=== PATIENT | female | born 1975 | race Caucasian/White ===

== ENCOUNTER 2019-06-22 14:41 | Outpatient (REF) | payer MEDICAID, SELFPAY ==
[2019-06-22 21:35] LABS: ALT 56 U/L (14-59); AST 47 U/L (15-37); Albumin 4.4 g/dL (3.4-5.0); Alkaline Phosphatase 112 U/L (46-116); Anion Gap 16.1 mmol/L (3-11); BUN 16 mg/dL (7-18); Bilirubin, Total 0.6 mg/dL (0.2-1.0); CO2 21.9 mmol/L (21.0-32.0); CREATININE 1.38 mg/dL (0.55-1.02); Calcium 10.4 mg/dL (8.5-10.1); Chloride 98 mmol/L (98-107); Cholesterol 265 mg/dL (<200); Estimated GFR 42.13 (mL/min/1.73m2); Glucose 380 mg/dL (74-106); HDL Cholesterol 36 mg/dL (40-60); Potassium 4.2 mmol/L (3.5-5.1); Sodium 136 mmol/L (136-145); Total Protein 7.7 g/dL (6.4-8.2); Triglyceride 882 mg/dL (<150)
[2019-06-24 11:52] LABS: Hepatitis C Ab w Rflx HCV PCR Negative (Negative)
== END 2019-06-22 15:01 ==
LOC: NCHCN 14:41
PROVIDERS: PCP Nurse Practitioner Family; Visit Provider Nurse Practitioner Family
DX: E78.5 Hyperlipidemia, unspecified (principal); E88.81 Metabolic syndrome and other insulin resistance; Z11.59 Encounter for screening for other viral diseases
CPT/HCPCS: 80053; 80061; 83721; 86803

== ENCOUNTER 2019-07-06 16:14 | Outpatient (REF) | payer MEDICAID, SELFPAY ==
[2019-07-06 20:56] LABS: ALT 79 U/L (14-59); AST 52 U/L (15-37); Albumin 4.7 g/dL (3.4-5.0); Alkaline Phosphatase 116 U/L (46-116); Anion Gap 15.6 mmol/L (3-11); BUN 11 mg/dL (7-18); Bilirubin, Total 0.6 mg/dL (0.2-1.0); CO2 22.4 mmol/L (21.0-32.0); CREATININE 0.91 mg/dL (0.55-1.02); Calcium 10.8 mg/dL (8.5-10.1); Chloride 99 mmol/L (98-107); Glucose 231 mg/dL (74-106); Potassium 4.3 mmol/L (3.5-5.1); Sodium 137 mmol/L (136-145); Total Protein 8.2 g/dL (6.4-8.2)
[2019-07-06 21:48] LABS: COMMENT (LAB VIEW ONLY) 28.14 mg/dL
== END 2019-07-06 16:34 ==
LOC: NCHCN 16:14
PROVIDERS: PCP Nurse Practitioner Family; Visit Provider Nurse Practitioner Family
DX: E88.81 Metabolic syndrome and other insulin resistance (principal); I10 Essential (primary) hypertension; E78.5 Hyperlipidemia, unspecified
CPT/HCPCS: 80053; 82043; 82570

== ENCOUNTER 2019-08-18 14:32 | Outpatient (REF) | payer MEDICAID, SELFPAY ==
[2019-08-18 20:58] LABS: Anion Gap 12.3 mmol/L (3-11); BUN 8 mg/dL (7-18); CO2 24.7 mmol/L (21.0-32.0); CREATININE 1.11 mg/dL (0.55-1.02); Calcium 10.1 mg/dL (8.5-10.1); Chloride 96 mmol/L (98-107); Potassium 4.4 mmol/L (3.5-5.1); Sodium 133 mmol/L (136-145)
[2019-08-18 21:22] LABS: Glucose 543 mg/dL (74-106)
== END 2019-08-18 14:52 ==
LOC: NCHCN 14:32
PROVIDERS: PCP Nurse Practitioner Family; Visit Provider Nurse Practitioner Family
DX: I10 Essential (primary) hypertension (principal)
CPT/HCPCS: 80048

== ENCOUNTER 2020-01-19 17:16 | Outpatient (REF) | payer MEDICAID, SELFPAY ==
[2020-01-22 03:08] LABS: SARS-CoV-2 RNA Undetected (Undetected); SARS-CoV-2 Specimen Source Nasal
== END 2020-01-19 17:36 ==
LOC: NCHCN 17:16
PROVIDERS: PCP Nurse Practitioner Family; Visit Provider Nurse Practitioner Family
DX: Z11.59 Encounter for screening for other viral diseases (principal)
CPT/HCPCS: U0003

== ENCOUNTER 2020-12-26 21:07 | Outpatient (REF) | payer MEDICAID, SELFPAY ==
[2020-12-26 21:01] LABS: Cholesterol 263 mg/dL (<200); HDL Cholesterol 37 mg/dL (40-60); Triglyceride 618 mg/dL (<150)
[2020-12-26 21:07] LABS: Hemoglobin A1C 10.4 % (<5.7)
[2020-12-26 21:13] LABS: LDL CHOLESTEROL 159 mg/dL (<100)
== END 2020-12-26 21:08 | disposition home or self-care (01) ==
LOC: NCHCN 21:07
PROVIDERS: PCP Nurse Practitioner Family; Visit Provider Nurse Practitioner Family
DX: E11.9 Type 2 diabetes mellitus without complications (principal); E78.5 Hyperlipidemia, unspecified; E88.81 Metabolic syndrome and other insulin resistance
CPT/HCPCS: 80061; 83721; 83036

== ENCOUNTER 2021-01-16 16:45 | Outpatient (REF) | payer MEDICAID, SELFPAY ==
[2021-01-16 21:11] LABS: Microalb ug/mg Crea 2.4 ug/mg Cr
== END 2021-01-16 16:46 | disposition home or self-care (01) ==
LOC: NCHCN 16:45
PROVIDERS: PCP Nurse Practitioner Family; Visit Provider Nurse Practitioner Family
DX: E11.9 Type 2 diabetes mellitus without complications (principal)
CPT/HCPCS: 82043; 82570

== ENCOUNTER 2022-02-12 11:26 | Outpatient (REF) | payer MEDICAID, SELFPAY ==
[2022-02-12 16:51] LABS: COMMENT (LAB VIEW ONLY) 5.52 mg/dL
== END 2022-02-12 11:27 | disposition home or self-care (01) ==
LOC: NCHCN 11:26
PROVIDERS: PCP Nurse Practitioner Family; Visit Provider Nurse Practitioner Family
DX: E11.9 Type 2 diabetes mellitus without complications (principal)
CPT/HCPCS: 82043; 82570

== ENCOUNTER 2022-10-18 16:30 | Outpatient (REF) | payer MEDICARE, MEDICAID, SELFPAY ==
--- NOTE | 2022-10-18 14:30 | PAPFT_PTH ---
PATIENT: Guzman Jean LOC: [facility]#:[id number] AGE/SX: 47/F ROOM: RE10/18/[address]: Stephanie Santos : 1975 BED: DIS: 10/18/2022 SPEC #: [id number] RECD: 10/19/22 12:57 STATUS: RADHA REQ #: [id number] BINH: 10/18/22 14:[address]: Stephanie Santos DEPT: [facility] Cytology RECD BY: Rose Lopez ENTERED: 10/19/22 12:58 SP TYPE: PAPFT OTHR DR: Jossie Patton Tissues: 1 - CX/ENDOCX FOR PAP SMEARS Procedures: PAP THIN PREP/UVM Screening HPV DNA PROBE Comments: [id number] (CHLAMYDIA/GC)
[2022-10-20 13:14] LABS: Chlamydia Result Negative (Negative); GC Result Negative (Negative)
[2022-10-22 14:29] LABS: Chlamydia Result Negative (Negative); GC Result Negative (Negative)
== END 2022-10-18 16:31 | disposition home or self-care (01) ==
LOC: NCHCN 16:30
PROVIDERS: PCP Nurse Practitioner Family; Visit Provider Family Medicine
DX: Z11.3 Encounter for screening for infections with a predominantly sexual mode of transmission (principal); Z12.72 Encounter for screening for malignant neoplasm of vagina; Z11.51 Encounter for screening for human papillomavirus (HPV); Z01.419 Encounter for gynecological examination (general) (routine) without abnormal findings
CPT/HCPCS: 87491; 87591; 88142; 87624

== ENCOUNTER 2022-10-29 16:59 | Outpatient (REF) | payer MEDICARE, MEDICAID, SELFPAY ==
[2022-10-29 22:21] LABS: ALT 52 U/L (14-59); AST 36 U/L (15-37); Albumin 4.3 g/dL (3.4-5.0); Alkaline Phosphatase 101 U/L (46-116); Anion Gap 13.7 mmol/L (3-11); BUN 12 mg/dL (7-18); Bilirubin, Total 1.4 mg/dL (0.2-1.0); CO2 22.3 mmol/L (21.0-32.0); CREATININE 1.2 mg/dL (0.55-1.02); Calcium 9.4 mg/dL (8.5-10.1); Chloride 97 mmol/L (98-107); Estimated GFR 56.89 (mL/min/1.73m2); Glucose 336 mg/dL (74-106); Potassium 4.1 mmol/L (3.5-5.1); Sodium 133 mmol/L (136-145)
== END 2022-10-29 17:00 | disposition home or self-care (01) ==
LOC: NCHCN 16:59
PROVIDERS: PCP Nurse Practitioner Family; Visit Provider Internal Medicine
DX: E11.9 Type 2 diabetes mellitus without complications (principal); R11.2 Nausea with vomiting, unspecified
CPT/HCPCS: 80053

== ENCOUNTER 2023-03-08 15:49 | Outpatient (REF) | payer MEDICARE, SELFPAY ==
[2023-03-08 21:47] LABS: COMMENT (LAB VIEW ONLY) 55.52 mg/dL
[2023-03-08 21:52] LABS: Microalb ug/mg Crea 601.8 ug/mg Cr
[2023-03-11 10:57] LABS: HIV-1/2 Ag & Ab Screen Negative (Negative)
[2023-03-11 12:16] LABS: Syphilis Serology (RPR) Negative (Negative)
[2023-03-11 13:17] LABS: Chlamydia Result Negative (Negative); GC Result Negative (Negative)
== END 2023-03-08 15:50 | disposition home or self-care (01) ==
LOC: NCHCN 15:49
PROVIDERS: PCP Nurse Practitioner Family; Visit Provider Family Medicine
DX: R39.9 Unspecified symptoms and signs involving the genitourinary system (principal); E11.65 Type 2 diabetes mellitus with hyperglycemia; B96.20 Unspecified Escherichia coli [E. coli] as the cause of diseases classified elsewhere; Z11.3 Encounter for screening for infections with a predominantly sexual mode of transmission; Z72.51 High risk heterosexual behavior
CPT/HCPCS: 87077; 87389; 87491; 87591; 82043; 82570; 86592; 87086; 87186; 87480; 87510; 87660

== ENCOUNTER 2023-08-23 15:05 | Outpatient (REF) | payer MEDICARE, SELFPAY ==
[2023-08-27 08:49] LABS: Misc Referral (UVM) See Comments
== END 2023-08-23 15:06 | disposition home or self-care (01) ==
LOC: NCHCN 15:05
PROVIDERS: PCP Nurse Practitioner Family; Visit Provider Registered Nurse
DX: R39.9 Unspecified symptoms and signs involving the genitourinary system (principal); B37.9 Candidiasis, unspecified
CPT/HCPCS: 87077; 87086; 87186; 87480; 87510; 87660

== ENCOUNTER 2024-02-14 15:04 | Outpatient (REF) | payer MEDICARE, SELFPAY ==
--- OUTSIDE RECORDS SUMMARY | 2024-02-14 15:07 | XMS_ITS ---
Author Organization Unknown Address [address] [place] [phone] Phone Care Team Providers Care Test Clerk Name Role Phone HENOK MARIE Crawford Attending Unavailable JES DELAROSA Primary Unavailable Results HEMOGLOBIN A1C* - Collect Da te/Time: 06/27/2021 16:40 [facility] ID: [id number] [address] [place] [address], [address] LOINC: 05209-0 Test Value Unit Reference Range Code Code System Flag Hgb A1c 11.2 % L=3.8 H=5.7 4548-4 LOINC H MEAN BLOOD GLUCOSE 287 mg/dL 98772-6 LOINC COMPREHENSIVE METABOLIC PANE L (CMP) - Collect Date/Time: 06/27/2021 16:16 [facility] ID: [id number] [address] [place] [address], [address] LOINC: 42686-4 Test Value Unit Reference Range Code Code System Flag GLUCOSE 328 mg/dL L=70 H=116 2345-7 LOINC H BUN 3 mg/dL L=6 H=25 3094-0 LOINC L CREATININE 0.87 mg/dL L=0.51 H=0.95 2160-0 LOINC SODIUM SERUM 135 mmol/L L=136 H=145 2951-2 LOINC L POTASSIUM SERUM 3.4 mmol/L L=3.4 H=5.2 2823-3 LOINC CHLORIDE SERUM 97 mmol/L L=96 H=110 2075-0 LOINC CARBON DIOXIDE (CO2) 23 mmol/L L=22 H=34 2028-9 LOINC ANION GAP 15.5 mmol/L 23570-1 LOINC CALCIUM SERUM 9.9 mg/dL L=8.2 H=10.2 76738-7 LOINC BILIRUBIN TOTAL 0.9 mg/dL L=0.0 H=1.3 1975-2 LOINC ALK. PHOS. 100 U/L L=46 H=116 6768-6 LOINC SGOT (AST) 30 U/L L=15 H=37 1920-8 LOINC SGPT (ALT) 54 U/L L=12 H=78 1742-6 LOINC TOTAL PROTEIN 8.0 gm/dL L=6.0 H=8.0 2885-2 LOINC ALBUMIN 4.3 gm/dL L=3.4 H=5.0 1751-7 LOINC AGE 45 years eGFR (non-Afr.Amer.) 71 mL/min 66785-2 LOINC eGFR (Afr-Irish) 86 mL/min 06050-2 LOINC CBC W/ DIFFERENTIAL* - Colle ct Date/Time: 06/27/2021 16:16 [facility] ID: [id number] [address] [place], [place], [address] LOINC: 58783-6 Test Value Unit Reference Range Code Code System Flag WBC 11.97 th/cmm L=5.00 H=10.00 6690-2 LOINC H NEUT % 44.6 % L=40.0 H=80.0 LYMPH % 46.4 % L=10.0 H=50.0 MONO % 7.1 % L=2.0 H=12.0 19608-0 LOINC EOS % 1.1 % L=0.0 H=8.0 BASO % 0.5 % L=0.0 H=3.0 IG % 0.3 % L=0.0 H=1.1 2514-8 LOINC NRBC % 0.0 % L=0.0 H=0.0 31021-0 LOINC NEUT abs count 5.3 th/cmm L=1.6 H=8.4 751-8 LOINC LYMPH abs count 5.6 th/cmm L=1.5 H=4.0 731-0 LOINC H MONO abs count 0.9 th/cmm L=0.2 H=1.0 742-7 LOINC EOS abs count 0.1 th/cmm L=0.0 H=0.5 711-2 LOINC BASO abs count 0.1 th/cmm L=0.0 H=0.2 704-7 LOINC IG abs count 0.0 th/cmm L=0.0 H=0.1 97443-9 LOINC NRBC abs count 0.0 mil/cmm L=0.0 H=0.0 97896-6 LOINC RBC 4.86 mil/cmm L=3.90 H=5.40 789-8 LOINC HEMOGLOBIN 15.7 gm/dL L=12.0 H=16.0 718-7 LOINC HEMATOCRIT 43 % L=37 H=47 4544-3 LOINC MCV 88 fL L=82 H=92 787-2 LOINC MCH 32.3 pg L=27.0 H=31.0 785-6 LOINC H MCHC 36.8 % L=32.0 H=36.0 786-4 LOINC H RDW-SD 37.2 fL L=39.0 H=49.0 788-0 LOINC L PLATELET COUNT 288 th/cmm L=150 H=450 777-3 LOINC Atyp lymphs 2+ Social History Type Status Start Date End Date Code Code Syst em Smoking History Current every day smoker 670242701 SNOMED CT Sex Female Medications Medication Start Date End Date Route Frequency Dose Code Code System Medication Instructions Home Meds ACTOS TABLET 10/24/2018 07/01/2021 ORAL DAILY 1 TABLET R xNorm TAKE 1 TABLET ORAL DAILY Labetalol HCl 200MG Oral Tablet 10/24/2018 07/01/2021 ORAL DAILY 200 MILLIGRAMS 01159 2 RxNorm TAKE 200 MILLIGRAMS ORAL DAILY NEURONTIN 600MG ORAL TABLET 10/24/2018 07/01/2021 ORAL TWICE A DAY 600 MILLIGRAMS RxNorm TAKE 600 MILLIGRAMS ORAL TWICE A DAY SEROQUEL 300MG ORAL TABLET 10/24/2018 07/01/2021 ORAL DAILY 300 MILLIGRAMS RxNorm TAKE 300 MILLIGRAMS ORAL DAILY metFORMIN HCl 1000MG Oral Tablet, Extended Release 10/24/2018 07/01/2021 ORAL TWICE A DAY 35462 94 RxNorm TAKE 000 MILLIGRAMS ORAL TWICE A DAY Cyclobenzapr ine 10MG Oral Tablet 12/14/2018 10/26/2021 ORAL THREE TIMES A DAY 10 MILLIGRAMS 05185 8 RxNorm TAKE 10 MILLIGRAMS ORAL THREE TIMES A DAY JANUVIA 100MG ORAL TABLET 12/14/2018 07/01/2021 ORAL DAILY 100 MILLIGRAMS RxNorm TAKE 100 MILLIGRAMS ORAL DAILY LAMICTAL 200MG ORAL TABLET 12/14/2018 07/01/2021 ORAL DAILY 200 MILLIGRAMS RxNorm TAKE 200 MILLIGRAMS ORAL DAILY Lisinopril 20MG Oral Tablet 12/14/2018 07/01/2021 ORAL DAILY 20 MILLIGRAMS 77788 7 RxNorm TAKE 20 MILLIGRAMS ORAL DAILY NEURONTIN 600MG ORAL TABLET 12/14/2018 07/01/2021 ORAL TWICE A DAY 600 MILLIGRAMS RxNorm TAKE 600 MILLIGRAMS ORAL TWICE A DAY SEROQUEL 300MG ORAL TABLET 12/14/2018 07/01/2021 ORAL DAILY 300 MILLIGRAMS RxNorm TAKE 300 MILLIGRAMS ORAL DAILY VICTOZA 6MG/1ML SUBCUTANEOUS SOLUTI 12/14/2018 07/01/2021 ORAL DAILY 0.6 UNIT RxNorm TAKE 0.6 UNIT ORAL DAILY metFORMIN HCl 1000MG Oral Tablet, Extended Release 12/14/2018 07/26/2021 ORAL TWICE A DAY 1000 MILLIGRAMS 49900 94 RxNorm TAKE 1000 MILLIGRAMS ORAL TWICE A DAY Ondansetron 4MG Oral Tablet, Disintegrati ng 07/05/2021 10/26/2021 ORAL NEEDED EVERY 6 HOURS 1 TABLET 65032 4 RxNorm TAKE 1 TABLET ORAL NEEDED EVERY 6 HOURS FOR Nausea/Vomi ting Phenergan 25MG Rectal Suppository 07/26/2021 10/26/2021 RECTAL DAILY 1 SUPPOSITORY 44804 7 RxNorm INSERT 1 SUPPOSITORY RECTAL DAILY HYDROcodone bitartrate-a cetaminophen 5MG-325MG Oral Tablet 09/19/2021 10/26/2021 ORAL EVERY 6 HOURS 1 TABLET 76126 2 RxNorm TAKE 1 TABLET ORAL EVERY 6 HOURS Zithromax 250MG Oral Tablet 04/17/2022 01/25/2023 ORAL DAILY 1 TABLET 29331 6 RxNorm TAKE 1 TABLET ORAL DAILY predniSONE 20MG Oral Tablet 04/17/2022 01/07/2023 ORAL DAILY 2 TABLET 05658 5 RxNorm TAKE 2 TABLET ORAL DAILY Percocet 5MG-325MG Oral Tablet 01/07/2023 06/23/2023 ORAL NEEDED EVERY 4 HOURS 1 TABLET 40598 40 RxNorm TAKE 1 TABLET ORAL NEEDED EVERY 4 HOURS predniSONE 20MG Oral Tablet 01/07/2023 01/07/2023 ORAL DAILY 2 TABLET 34222 5 RxNorm TAKE 2 TABLET ORAL DAILY predniSONE 20MG Oral Tablet 01/07/2023 06/23/2023 ORAL DAILY 2 TABLET 33658 5 RxNorm TAKE 2 TABLET ORAL DAILY LaMICtal 150MG Oral Tablet 06/23/2023 11/11/2023 ORAL DAILY 1 TABLET 18779 1 RxNorm TAKE 1 TABLET ORAL DAILY HumaLOG 100U/1ML Injection Solution 06/23/2023 Unknown INJECTION DAILY 1 unit(s) 16244 8 RxNorm 1 EACH INJECTION DAILY Ondansetron 4MG Oral Tablet 06/23/2023 01/31/2024 ORAL NEEDED EVERY 6 HOURS 4 MILLIGRAMS 38636 2 RxNorm TAKE 4 MILLIGRAMS ORAL NEEDED EVERY 6 HOURS SEROquel 100MG Oral Tablet 06/23/2023 11/11/2023 ORAL BEDTIME 150 MILLIGRAMS 96982 9 RxNorm TAKE 150 MILLIGRAMS ORAL BEDTIME Spironolacto ne 100MG Oral Tablet 06/23/2023 Unknown ORAL DAILY 100 MILLIGRAMS 2 RxNorm TAKE 100 MILLIGRAMS ORAL DAILY Vraylar 6MG Oral Capsule 06/23/2023 11/11/2023 ORAL DAILY 6 MILLIGRAMS 11274 78 RxNorm TAKE 6 MILLIGRAMS ORAL DAILY Mounjaro 06/23/2023 Unknown ORAL WEEKLY 15 MILLIGRAMS RxNorm TAKE 15 MILLIGRAMS ORAL WEEKLY Assessment You had the following problems:SLURRED SPEECHDIABETES 2BIPOLAR DISORDER Hospital Discharge Instructions Should you have any questions prior to discharge, please contact a member of your healthcare team. If you have left the hospital and have any questions, please contact your primary care physician. Reason For Referral No Data Found Problems Problem Start Date Resolved Date Status Code Code System SLURRED SPEECH active 249047605 SNOME D-CT DIABETES 2 active 71657049 SNOMED-CT BIPOLAR DISORDER active 49938263 SNO MED-CT PTSD 09/19/2021 resolved 05862323 SNOMED-CT FIBROMYALGIA 09/19/2021 resolved 232771713 SNOMED -CT DIABETES 2 07/05/2021 resolved 06333483 SNOMED-C T FALL FROM STAIRS 06/23/2023 resolved 015714025 SN OMED-CT CLOSED FRACTURE OF RIGHT HUMERUS 06/23/2023 resolved 44818931577515947 SNOMED-CT HTN 09/19/2021 resolved 30744011 SNOMED-CT BIPOLAR DISORDER 09/19/2021 resolved 40473372 SN OMED-CT Allergies and Adverse Reactions Allergy Substance Reaction Severity Start Date Concern Status Co de Code System LISINOPRIL Active 09149 RxNorm AMBIEN Altered Mental Status (SNOMED-CT: 171069889) Active 736092 RxNorm Plan of Treatment Lab Draw 07/30/2020 Lab Draw 05/28/2020 US ABDOMEN LIMITED 1 ORGAN 05/06/2023 US RIGHT UPPER QUAD 07/05/2021 Encounters Encounter Diagnosis Start Date Code Code Sys tem Right upper quadrant pain 06/27/2021 647287806 SN OMED-CT Personal Care Team Section Performer Name Performer Role Active Date Inactive Da te
--- OUTSIDE RECORDS SUMMARY | 2024-02-14 15:07 | XMS_ITS ---
Author Organization Unknown Address [address] [place] [phone] Phone Care Team Providers Care Landscaping Manager Name Role Phone HENOK Crawford Attending Unavailable JES DELAROSA Primary Unavailable Results US ABD LIMITED ONE ORGAN - C ompleted: 07/05/2021 08:51 LOINC: RIGHT UPPER QUADRANT ULTRASO UND There is no ascites. The liver is hyperechoic indicating steatosis. There are no discrete focal hepatic lesions evident. Gallbladder surgically absent. Common hepatic duct diameter is 7 mm, minimally prominent and probably due to post- cholecystectomy status. Pancreas appears unremarkable. Pancreatic duct is not dilated. Right kidney unremarkable. The visualized abdominal aorta exhibits normal diameter. IVC patent. IMPRESSION: 1. The gallbladder is surgically absent. Common hepatic duct measures 7 mm, commensurate with post-cholecystectomy status. 2. Hepatic steatosis. Correlation with appropriate hepatic blood work recommended. There are no obvious discrete focal hepatic lesions evident on these images. 3. No other significant right quadrant evident on these images. Dictated by: MAGALI CHAN MD Transcribed by: [facility] 07/05/21/11:04 D Monday, July 05, 2021 8:40:26 AM 580912 [id number] Electronically Reviewed and Signed By: ALBERTO CHAN MD 07/05/21 13:49 Copy for: HENOK Crawford via fax Copy for: JES DELAROSA via fax Copy for: [facility] INFORMATION MGMT Social History Type Status Start Date End Date Code Code Syst em Smoking History Current every day smoker [id number] SNOMED CT Sex Female Medications Medication Start Date End Date Route Frequency Dose Code Code System Medication Instructions Home Meds metFORMIN HCl 1000MG Oral Tablet, Extended Release 12/14/2018 07/26/2021 ORAL TWICE A DAY 1000 MILLIGRAMS 7539224 RxNorm TAKE 1000 MILLIGRAMS ORAL TWICE A DAY Cyclobenzap rine 10MG Oral Tablet 12/14/2018 10/26/2021 ORAL THREE TIMES A DAY 10 MILLIGRAMS 258240 RxNorm TAKE 10 MILLIGRAMS ORAL THREE TIMES A DAY Ondansetron 4MG Oral Tablet, Disintegrat ing 07/05/2021 10/26/2021 ORAL NEEDED EVERY 6 HOURS 1 TABLET 342465 RxNorm TAKE 1 TABLET ORAL NEEDED EVERY 6 HOURS FOR Nausea/Vomit ing Phenergan 25MG Rectal Suppository 07/26/2021 10/26/2021 RECTAL DAILY 1 SUPPOSITORY 818510 RxNorm INSERT 1 SUPPOSITORY RECTAL DAILY HYDROcodone bitartrate- acetaminoph en 5MG-325MG Oral Tablet 09/19/2021 10/26/2021 ORAL EVERY 6 HOURS 1 TABLET 245682 RxNorm TAKE 1 TABLET ORAL EVERY 6 HOURS Zithromax 250MG Oral Tablet 04/17/2022 01/25/2023 ORAL DAILY 1 TABLET 267029 RxNorm TAKE 1 TABLET ORAL DAILY predniSONE 20MG Oral Tablet 04/17/2022 01/07/2023 ORAL DAILY 2 TABLET 201363 RxNorm TAKE 2 TABLET ORAL DAILY predniSONE 20MG Oral Tablet 01/07/2023 01/07/2023 ORAL DAILY 2 TABLET 258996 RxNorm TAKE 2 TABLET ORAL DAILY Percocet 5MG-325MG Oral Tablet 01/07/2023 06/23/2023 ORAL NEEDED EVERY 4 HOURS 1 TABLET 8036546 RxNorm TAKE 1 TABLET ORAL NEEDED EVERY 4 HOURS predniSONE 20MG Oral Tablet 01/07/2023 06/23/2023 ORAL DAILY 2 TABLET 090826 RxNorm TAKE 2 TABLET ORAL DAILY SEROquel 100MG Oral Tablet 06/23/2023 11/11/2023 ORAL BEDTIME 150 MILLIGRAMS 295961 RxNorm TAKE 150 MILLIGRAMS ORAL BEDTIME LaMICtal 150MG Oral Tablet 06/23/2023 11/11/2023 ORAL DAILY 1 TABLET RxNorm TAKE 1 TABLET ORAL DAILY Ondansetron 4MG Oral Tablet 06/23/2023 01/31/2024 ORAL NEEDED EVERY 6 HOURS 4 MILLIGRAMS 270894 RxNorm TAKE 4 MILLIGRAMS ORAL NEEDED EVERY 6 HOURS HumaLOG 100U/1ML Injection Solution 06/23/2023 Unknown INJECT ION DAILY 1 unit(s) 365460 RxNorm 1 EACH INJECTION DAILY Spironolact one 100MG Oral Tablet 06/23/2023 Unknown ORAL DAILY 100 MILLIGRAMS 588154 RxNorm TAKE 100 MILLIGRAMS ORAL DAILY Vraylar 6MG Oral Capsule 06/23/2023 11/11/2023 ORAL DAILY 6 MILLIGRAMS 4016604 RxNorm TAKE 6 MILLIGRAMS ORAL DAILY Mounjaro [...] Status Code Code System SLURRED SPEECH active 563931442 SNOME D-CT DIABETES 2 active 29714579 SNOMED-CT BIPOLAR DISORDER active 55084302 SNO MED-CT PTSD 09/19/2021 resolved 57453192 SNOMED-CT FIBROMYALGIA 09/19/2021 resolved 839609300 SNOMED -CT DIABETES 2 07/05/2021 resolved 36903617 SNOMED-C T FALL FROM STAIRS 06/23/2023 resolved 707913896 SN OMED-CT CLOSED FRACTURE OF RIGHT HUMERUS 06/23/2023 resolved 49097415102866617 SNOMED-CT HTN 09/19/2021 resolved 57196908 SNOMED-CT BIPOLAR DISORDER 09/19/2021 resolved 57783587 SN OMED-CT Allergies and Adverse Reactions Allergy Substance Reaction Severity Start Date Concern Status Co de Code System LISINOPRIL Active 67580 RxNorm AMBIEN Altered Mental Status (SNOMED-CT: 274340441) Active 634940 RxNorm Plan of Treatment Lab Draw 07/30/2020 Lab Draw 05/28/2020 US ABDOMEN LIMITED 1 ORGAN 05/06/2023 US RIGHT UPPER QUAD 07/05/2021 Encounters Encounter Diagnosis Start Date Code Code Sys tem Right upper quadrant pain 07/05/2021 SN OMED-CT Personal Care Team Section Performer Name Performer Role Active Date Inactive Da donita
--- OUTSIDE RECORDS SUMMARY | 2024-02-14 15:07 | XMS_ITS ---
Author Organization Unknown Address [address] [place] [phone] Phone Care Team Providers Care Offensive Coordinator Name Role Phone BALAJI URSULA Registered Nurse Unavailable ADELE Kay Attending Unavailable JESWILLIAM DELAROSA Primary Unavailable UNLISTED PROVIDER - REQUESTED Xhandoff Un available Results XR ANKLE RT 3V* - Completed: 07/01/2021 18:28 LOINC: RIGHT ANKLE - 3 VIEWS:The an kle mortise is well maintained. There is no evidence of acute fracture or dislocation. Dictated by: HOANG DEL TORO RADIOLOGIST Transcribed by: KARSTEN 07/02/21/17:11 D Saturday, July 01, 2021 2:53:37 PM [id number] Electronically Reviewed and Signed By: KELLI DEL TORO RADIOLOGIST 07/04/21 07:54 Copy for: UNLISTED PROVIDER - REQUESTED Copy for: JES DELAROSA via fax Copy for: [facility] INFORMATION MGMT DISCHARGED Social History Type Status Start Date End Date Code Code Syst em Smoking History Current every day smoker 006054362 SNOMED CT Sex Female Vital Signs Vital Sign Value Unit [place] Value [place] Unit Date/Time Recent/Initial? Code Code System Body Mass Index 44.00 kg/m2 07/01/2021 11:37 Initial 32654 -5 LOINC Systolic Blood Pressure 158 mm[Hg] 07/01/2021 13:39 Most Recent 8480- 6 LOINC Diastolic Blood Pressure 89 mm[Hg] 07/01/2021 13:39 Most Recent 8462- 4 LOINC Systolic Blood Pressure 144 mm[Hg] 07/01/2021 11:37 Initial 8480- 6 LOINC Diastolic Blood Pressure 93 mm[Hg] 07/01/2021 11:37 Initial 8462- 4 LOINC Body Surface Area 2.08 m2 07/01/2021 11:37 Initial 3140- 1 LOINC Height 152.400 0 cm 60.00 in 07/01/2021 11:37 Initial 8302- 2 LOINC O2 Saturation 99 % 2021 13:39 Most Recent 57458 -5 LOINC O2 Saturation 98 % 2021 11:37 Initial 20500 -5 LOINC Pulse 109.0 /min 07/01/2021 13:39 Most Recent 8867- 4 LOINC Pulse 92.0 /min 07/01/2021 11:37 Initial 8867- 4 LOINC Respiration 16 /min 07/02/19 13:39 Most Recent 9279- 1 LOINC Respiration 16 /min 07/02/19 11:37 Initial 9279- 1 LOINC Temperature 37.0 Jazmine 98.6 F 07/02/19 11:37 Initial 8310- 5 LOINC Weight 102.20 kg 225.31 lbs 07/01/2021 11:37 Initial 90487 -7 [facility] Medications Medication Start Date End Date Route Frequency Dose Code Code System Medication Instructions Home Meds ACTOS TABLET 10/24/2018 07/01/2021 ORAL DAILY 1 TABLET R xNorm TAKE 1 TABLET ORAL DAILY Labetalol HCl 200MG Oral Tablet 10/24/2018 07/01/2021 ORAL DAILY 200 MILLIGRAMS 08651 2 RxNorm TAKE 200 MILLIGRAMS ORAL DAILY NEURONTIN 600MG ORAL TABLET 10/24/2018 07/01/2021 ORAL TWICE A DAY 600 MILLIGRAMS RxNorm TAKE 600 MILLIGRAMS ORAL TWICE A DAY SEROQUEL 300MG ORAL TABLET 10/24/2018 07/01/2021 ORAL DAILY 300 MILLIGRAMS RxNorm TAKE 300 MILLIGRAMS ORAL DAILY metFORMIN HCl 1000MG Oral Tablet, Extended Release 10/24/2018 07/01/2021 ORAL TWICE A DAY 21519 94 RxNorm TAKE 000 MILLIGRAMS ORAL TWICE A DAY Cyclobenzapr ine 10MG Oral Tablet 12/14/2018 10/26/2021 ORAL THREE TIMES A DAY 10 MILLIGRAMS 76620 8 RxNorm TAKE 10 MILLIGRAMS ORAL THREE TIMES A DAY JANUVIA 100MG ORAL TABLET 12/14/2018 07/01/2021 ORAL DAILY 100 MILLIGRAMS RxNorm TAKE 100 MILLIGRAMS ORAL DAILY LAMICTAL 200MG ORAL TABLET 12/14/2018 07/01/2021 ORAL DAILY 200 MILLIGRAMS RxNorm TAKE 200 MILLIGRAMS ORAL DAILY Lisinopril 20MG Oral Tablet 12/14/2018 07/01/2021 ORAL DAILY 20 MILLIGRAMS 83628 7 RxNorm TAKE 20 MILLIGRAMS ORAL DAILY [...] 07/26/2021 ORAL TWICE A DAY 1000 MILLIGRAMS 53279 94 RxNorm TAKE 1000 MILLIGRAMS ORAL TWICE A DAY Ondansetron 4MG Oral Tablet, Disintegrati ng 07/05/2021 10/26/2021 ORAL NEEDED EVERY 6 HOURS 1 TABLET 57238 4 RxNorm TAKE 1 TABLET ORAL NEEDED EVERY 6 HOURS FOR Nausea/Vomi ting Phenergan 25MG Rectal Suppository 07/26/2021 10/26/2021 RECTAL DAILY 1 SUPPOSITORY 39731 7 RxNorm INSERT 1 SUPPOSITORY RECTAL DAILY HYDROcodone bitartrate-a cetaminophen 5MG-325MG Oral Tablet 09/19/2021 10/26/2021 ORAL EVERY 6 HOURS 1 TABLET 75774 2 RxNorm TAKE 1 TABLET ORAL EVERY 6 HOURS Zithromax 250MG Oral Tablet 04/17/2022 01/25/2023 ORAL DAILY 1 TABLET 73014 6 RxNorm TAKE 1 TABLET ORAL DAILY predniSONE 20MG Oral Tablet 04/17/2022 01/07/2023 ORAL DAILY 2 TABLET 37645 5 RxNorm TAKE 2 TABLET ORAL DAILY Percocet 5MG-325MG Oral Tablet 01/07/2023 06/23/2023 ORAL NEEDED EVERY 4 HOURS 1 TABLET 63139 40 RxNorm TAKE 1 TABLET ORAL NEEDED EVERY 4 HOURS predniSONE 20MG Oral Tablet 01/07/2023 01/07/2023 ORAL DAILY 2 TABLET 89765 5 RxNorm TAKE 2 TABLET ORAL DAILY predniSONE 20MG Oral Tablet 01/07/2023 06/23/2023 ORAL DAILY 2 TABLET 81437 5 RxNorm TAKE 2 TABLET ORAL DAILY LaMICtal 150MG Oral Tablet 06/23/2023 11/11/2023 ORAL DAILY 1 TABLET 1 RxNorm TAKE 1 TABLET ORAL DAILY HumaLOG 100U/1ML Injection Solution 06/23/2023 Unknown INJECTION DAILY 1 unit(s) 06158 8 RxNorm 1 EACH INJECTION DAILY Ondansetron 4MG Oral Tablet 06/23/2023 01/31/2024 ORAL NEEDED EVERY 6 HOURS 4 MILLIGRAMS 2 RxNorm TAKE 4 MILLIGRAMS ORAL NEEDED EVERY 6 HOURS SEROquel 100MG Oral Tablet 06/23/2023 11/11/2023 ORAL BEDTIME 150 MILLIGRAMS 17691 9 RxNorm TAKE 150 MILLIGRAMS ORAL BEDTIME Spironolacto ne 100MG Oral Tablet 06/23/2023 Unknown ORAL DAILY 100 MILLIGRAMS 2 RxNorm TAKE 100 MILLIGRAMS ORAL DAILY Vraylar 6MG Oral Capsule 06/23/2023 11/11/2023 ORAL DAILY 6 MILLIGRAMS 97149 78 RxNorm TAKE 6 MILLIGRAMS ORAL DAILY [...] Status Code Code System SLURRED SPEECH active 101466529 SNOME D-CT DIABETES 2 active 41393597 SNOMED-CT BIPOLAR DISORDER active 93819565 SNO MED-CT PTSD 09/19/2021 resolved 06046174 SNOMED-CT FIBROMYALGIA 09/19/2021 resolved 693690756 SNOMED -CT DIABETES 2 07/05/2021 resolved 13037079 SNOMED-C T FALL FROM STAIRS 06/23/2023 resolved 998213501 SN OMED-CT CLOSED FRACTURE OF RIGHT HUMERUS 06/23/2023 resolved 30984811039804030 SNOMED-CT HTN 09/19/2021 resolved 37617297 SNOMED-CT BIPOLAR DISORDER 09/19/2021 resolved 02397076 SN OMED-CT Allergies and Adverse Reactions Allergy Substance Reaction Severity Start Date Concern Status Co de Code System LISINOPRIL Active 51863 RxNorm AMBIEN Altered Mental Status (SNOMED-CT: 950895567) Active 100703 RxNorm Plan of Treatment Lab Draw 07/30/2020 Lab Draw 05/28/2020 US ABDOMEN LIMITED 1 ORGAN 05/06/2023 US RIGHT UPPER QUAD 07/05/2021 Encounters Encounter Diagnosis Start Date Code Code Sys tem Sprain of unspecified ligame nt of right ankle, initial encounter 07/01/2021 SNOMED-CT Personal Care Team Section Performer Name Performer Role Active Date Inactive Da te
--- OUTSIDE RECORDS SUMMARY | 2024-02-14 15:08 | XMS_ITS ---
Author Organization Unknown Address [address] [place] [phone] Phone Care Team Providers Care Embossing Press Operator Name Role Phone MILLY DAVIS Registered Nurse Unavailable ANN Kay Attending Unavailable ADELE Kay ER Unavailable JES DELAROSA Primary Unavailable UNLISTED PROVIDER - REQUESTED Xhandoff Un available Results URINALYSIS WITH REFLEX CULT IF POSITIVE* - Collect Date/Time: 07/05/2021 17:49 [facility] ID: [id number] [address] [place] [address], [address] LOINC: 82806-2 Test Value Unit Reference Range Code Code System Flag COLLECTION MODE: CLEAN CATCH Color YELLOW yellow 5778-6 LOINC Appearance CLEAR clear 5767-9 LOINC Glucose urine >=1000 negative mg/dl 99317-1 LOINC A Bilirubin SMALL negative 5770-3 LOINC A Ketones 40 negative mg/dl 2514-8 LOINC A Spec gravity 1.020 1.003 - 1.030 5811-5 LOINC pH urine 6.5 5.0 - 7.0 2756-5 LOINC Protein NEGATIVE negative mg/dl 04929-7 LOINC Urobilinogen 0.2 <or= 1 EU/dl 46006-2 LOINC Nitrite. NEGATIVE negative 5802-4 LOINC Blood NEGATIVE negative 5794-3 LOINC Leukocytes. NEGATIVE negative MICROSCOPIC NOT INDICAT ORDER VENOUS BLOOD GAS* - Co llect Date/Time: 07/05/2021 17:20 [facility] ID: [id number] [address] [place] [address], [id number] LOINC: Test Value Unit Reference Range Code Code System Flag Specimen type: VENOUS pH (venous) 7.46 L=7.31 H=7.41 2746-6 LOINC H 2 (venous) 38.7 PO2 (venous) 66 mm Hg L=30 H=50 2705-2 LOINC H HCO3 27 mmol/L L=22 H=26 1960-4 LOINC H TCO2 (venous) 28 mmol/L L=22 H=28 3533-7 LOINC BASE EXCESS (venous) 3 mmol/L L=-2 H=3 3097-3 LOINC Assist vent. Resp. Rate /min. Temp. KETONES QUAL - Collect Date/ Time: 07/05/2021 17:00 [facility] ID: [id number] [address] [place] [address], [address] LOINC: 5567-3 Test Value Unit Reference Range Code Code System Flag ACETONE NEGATIVE 5567-3 LOINC COMPREHENSIVE METABOLIC PANE L (CMP) - Collect Date/Time: 07/05/2021 17:00 [facility] ID: [id number] [address] [place] [address], [address] LOINC: 58467-9 Test Value Unit Reference Range Code Code System Flag GLUCOSE 301 mg/dL L=70 H=116 2345-7 LOINC H BUN 10 mg/dL L=6 H=25 3094-0 LOINC CREATININE 0.78 mg/dL L=0.51 H=0.95 2160-0 LOINC SODIUM SERUM 133 mmol/L L=136 H=145 2951-2 LOINC L POTASSIUM SERUM 3.9 mmol/L L=3.4 H=5.2 2823-3 LOINC CHLORIDE SERUM 97 mmol/L L=96 H=110 2075-0 LOINC CARBON DIOXIDE (CO2) 25 mmol/L L=22 H=34 2028-9 LOINC ANION GAP 10.8 mmol/L 69499-9 LOINC CALCIUM SERUM 9.3 mg/dL L=8.2 H=10.2 07382-7 LOINC BILIRUBIN TOTAL 0.9 mg/dL L=0.0 H=1.3 1975-2 LOINC ALK. PHOS. 94 U/L L=46 H=116 6768-6 LOINC SGOT (AST) 43 U/L L=15 H=37 1920-8 LOINC H SGPT (ALT) 58 U/L L=12 H=78 1742-6 LOINC TOTAL PROTEIN 7.9 gm/dL L=6.0 H=8.0 2885-2 LOINC ALBUMIN 4.1 gm/dL L=3.4 H=5.0 1751-7 LOINC AGE 45 years eGFR (non-Afr.Amer.) 81 mL/min 37461-5 LOINC eGFR (Afr-Uruguayan) 98 mL/min 23279-7 LOINC CBC W/ DIFFERENTIAL* - Colle ct Date/Time: 07/05/2021 17:00 [facility] ID: [id number] [address] [place], [place], 58 LOINC: 12781-4 Test Value Unit Reference Range Code Code System Flag WBC 10.91 th/cmm L=5.00 H=10.00 6690-2 LOINC H NEUT % 56.6 % L=40.0 H=80.0 LYMPH % 35.0 % L=10.0 H=50.0 MONO % 7.0 % L=2.0 H=12.0 91506-5 LOINC EOS % 0.5 % L=0.0 H=8.0 BASO % 0.4 % L=0.0 H=3.0 IG % 0.5 % L=0.0 H=1.1 2514-8 LOINC NRBC % 0.0 % L=0.0 H=0.0 74821-6 LOINC NEUT abs count 6.2 th/cmm L=1.6 H=8.4 751-8 LOINC LYMPH abs count 3.8 th/cmm L=1.5 H=4.0 731-0 LOINC MONO abs count 0.8 th/cmm L=0.2 H=1.0 742-7 LOINC EOS abs count 0.1 th/cmm L=0.0 H=0.5 711-2 LOINC BASO abs count 0.0 th/cmm L=0.0 H=0.2 704-7 LOINC IG abs count 0.1 th/cmm L=0.0 H=0.1 64349-3 LOINC NRBC abs count 0.0 mil/cmm L=0.0 H=0.0 87713-0 LOINC RBC 4.85 mil/cmm L=3.90 H=5.40 789-8 LOINC HEMOGLOBIN 15.5 gm/dL L=12.0 H=16.0 718-7 LOINC HEMATOCRIT 43 % L=37 H=47 4544-3 LOINC MCV 89 fL L=82 H=92 787-2 LOINC MCH 32.0 pg L=27.0 H=31.0 785-6 LOINC H MCHC 36.1 % L=32.0 H=36.0 786-4 LOINC H RDW-SD 37.5 fL L=39.0 H=49.0 788-0 LOINC L PLATELET COUNT 333 th/cmm L=150 H=450 777-3 LOINC GLUCOSE FINGER/HEEL CAPILLAR Y - Collect Date/Time: 07/05/2021 15:55 [facility] ID: [id number] [address] [place] [address], [id number] LOINC: 04605-5 Test Value Unit Reference Range Code Code System Flag GLUCOSE CAP 270 mg/dL L=70 H=116 H Social History Type Status Start Date End Date Code Code Syst em Smoking History Current every day smoker 269719426 SNOMED CT Sex Female Vital Signs Vital Sign Value Unit Dawson Value Dawson Unit Date/Time Recent/Initial? Code Code System Body Mass Index 39.45 kg/m2 07/05/2021 15:57 Initial 18375 -5 LOINC Systolic Blood Pressure 162 mm[Hg] 07/05/2021 18:51 Most Recent 8480- 6 LOINC Diastolic Blood Pressure 90 mm[Hg] 07/05/2021 18:51 Most Recent 8462- 4 LOINC Systolic Blood Pressure 145 mm[Hg] 07/05/2021 15:57 Initial 8480- 6 LOINC Diastolic Blood Pressure 87 mm[Hg] 07/05/2021 15:57 Initial 8462- 4 LOINC Body Surface Area 1.97 m2 07/05/2021 15:57 Initial 3140- 1 [facility] Height 152.400 0 cm 60.00 in 07/05/2021 15:57 Initial 8302- 2 INC O2 Saturation 97 % 2021 18:51 Most Recent 03068 -5 INC O2 Saturation 100 % 2021 15:57 Initial 96372 -5 INC Pulse 88.0 /min 07/05/2021 18:51 Most Recent 8867- 4 INC Pulse 98.0 /min 07/05/2021 15:57 Initial 8867- 4 LOINC Respiration 16 /min 07/06/19 18:51 Most Recent 9279- 1 LOINC Respiration 17 /min 07/06/19 15:57 Initial 9279- 1 INC Temperature 36.7 Jazmine 98.1 F 07/06/19 15:57 Initial 8310- 5 [facility] Weight 91.63 kg 202.00 lbs 07/05/2021 15:57 Initial 54458 -7 [facility] Medications Medication Start Date End Date Route Frequency Dose Code Code System Medication Instructions Home Meds metFORMIN HCl 1000MG Oral Tablet, Extended Release 12/14/2018 07/26/2021 ORAL TWICE A DAY 1000 MILLIGRAMS 3943949 RxNorm TAKE 1000 MILLIGRAMS ORAL TWICE A DAY Cyclobenzap rine 10MG Oral Tablet 12/14/2018 10/26/2021 ORAL THREE TIMES A DAY 10 MILLIGRAMS 896836 RxNorm TAKE 10 MILLIGRAMS ORAL THREE TIMES A DAY Ondansetron 4MG Oral Tablet, Disintegrat ing 07/05/2021 10/26/2021 ORAL NEEDED EVERY 6 HOURS 1 TABLET 697926 RxNorm TAKE 1 TABLET ORAL NEEDED EVERY 6 HOURS FOR Nausea/Vomit ing Phenergan 25MG Rectal Suppository 07/26/2021 10/26/2021 RECTAL DAILY 1 SUPPOSITORY 395426 RxNorm INSERT 1 SUPPOSITORY RECTAL DAILY HYDROcodone bitartrate- acetaminoph en 5MG-325MG Oral Tablet 09/19/2021 10/26/2021 ORAL EVERY 6 HOURS 1 TABLET 509269 RxNorm TAKE 1 TABLET ORAL EVERY 6 HOURS Zithromax 250MG Oral Tablet 04/17/2022 01/25/2023 ORAL DAILY 1 TABLET 523764 RxNorm TAKE 1 TABLET ORAL DAILY predniSONE 20MG Oral Tablet 04/17/2022 01/07/2023 ORAL DAILY 2 TABLET 426722 RxNorm TAKE 2 TABLET ORAL DAILY predniSONE 20MG Oral Tablet 01/07/2023 01/07/2023 ORAL DAILY 2 TABLET 792408 RxNorm TAKE 2 TABLET ORAL DAILY Percocet 5MG-325MG Oral Tablet 01/07/2023 06/23/2023 ORAL NEEDED EVERY 4 HOURS 1 TABLET 2211409 RxNorm TAKE 1 TABLET ORAL NEEDED EVERY 4 HOURS predniSONE 20MG Oral Tablet 01/07/2023 06/23/2023 ORAL DAILY 2 TABLET 000347 RxNorm TAKE 2 TABLET ORAL DAILY SEROquel 100MG Oral Tablet 06/23/2023 11/11/2023 ORAL BEDTIME 150 MILLIGRAMS 072115 RxNorm TAKE 150 MILLIGRAMS ORAL BEDTIME LaMICtal 150MG Oral Tablet 06/23/2023 11/11/2023 ORAL DAILY 1 TABLET RxNorm TAKE 1 TABLET ORAL DAILY Ondansetron 4MG Oral Tablet 06/23/2023 01/31/2024 ORAL NEEDED EVERY 6 HOURS 4 MILLIGRAMS 686561 RxNorm TAKE 4 MILLIGRAMS ORAL NEEDED EVERY 6 HOURS HumaLOG 100U/1ML Injection Solution 06/23/2023 Unknown INJECT ION DAILY 1 unit(s) 790017 RxNorm 1 EACH INJECTION DAILY Spironolact one 100MG Oral Tablet 06/23/2023 Unknown ORAL DAILY 100 MILLIGRAMS 213922 RxNorm TAKE 100 MILLIGRAMS ORAL DAILY Vraylar 6MG Oral Capsule 06/23/2023 11/11/2023 ORAL DAILY 6 MILLIGRAMS 7473374 RxNorm TAKE 6 MILLIGRAMS ORAL DAILY Mounjaro [...] Status Code Code System SLURRED SPEECH active 168780121 SNOME D-CT DIABETES 2 active 49602420 SNOMED-CT BIPOLAR DISORDER active 47255378 SNO MED-CT PTSD 09/19/2021 resolved 09713593 SNOMED-CT FIBROMYALGIA 09/19/2021 resolved 198849377 SNOMED -CT DIABETES 2 07/05/2021 resolved 21193510 SNOMED-C T FALL FROM STAIRS 06/23/2023 resolved 917865306 SN OMED-CT CLOSED FRACTURE OF RIGHT HUMERUS 06/23/2023 resolved 81164388762109550 SNOMED-CT HTN 09/19/2021 resolved 62434225 SNOMED-CT BIPOLAR DISORDER 09/19/2021 resolved 89358299 SN OMED-CT Allergies and Adverse Reactions Allergy Substance Reaction Severity Start Date Concern Status Co de Code System LISINOPRIL Active 78859 RxNorm AMBIEN Altered Mental Status (SNOMED-CT: [id number]) Active 175723 RxNorm Plan of Treatment Lab Draw 07/30/2020 Lab Draw 05/28/2020 US ABDOMEN LIMITED 1 ORGAN 05/06/2023 US RIGHT UPPER QUAD 07/05/2021 Encounters Encounter Diagnosis Start Date Code Code Sys tem Nausea with vomiting, unspecified 07/05/2021 SNOMED-CT Personal Care Team Section Performer Name Performer Role Active Date Inactive Da te
--- OUTSIDE RECORDS SUMMARY | 2024-02-14 15:09 | XMS_ITS ---
Author Organization Unknown Address [address] [place] [address] [phone] Phone Care Team Providers Care Lime Slaker Name Role Phone SILVIA CLEMENT Registered Nurse Unavailable JACOB MALONEY Registered Nurse Unavailable MADY Martinez Attending Unavailable SARA QUESADA Unavailable JES DELAROSA Primary Unavailable UNLISTED PROVIDER - REQUESTED Xhandoff Un available Results GLUCOSE FINGER/HEEL CAPILLAR Y - Collect Date/Time: 07/26/2021 22:11 [facility] ID: [id number] [address] [place] [address], [id number] LOINC: 21206-8 Test Value Unit Reference Range Code Code System Flag GLUCOSE CAP 233 mg/dL L=70 H=116 H ORDER VENOUS BLOOD GAS* - Co llect Date/Time: 07/26/2021 21:18 [facility] ID: [id number] [address] [place] [address], [id number] LOINC: Test Value Unit Reference Range Code Code System Flag Specimen type: VENOUS pH (venous) 7.38 L=7.31 H=7.41 2746-6 LOINC PCO2 (venous) 30.0 mm Hg L=41.0 H=51.0 2703-7 LOINC L PO2 (venous) 69 mm Hg L=30 H=50 2705-2 LOINC H HCO3 18 mmol/L L=22 H=26 1960-4 LOINC L TCO2 (venous) 19 mmol/L L=22 H=28 3533-7 LOINC L BASE EXCESS (venous) -7 mmol/L L=-2 H=3 3097-3 LOINC L Assist vent. Resp. Rate /min. Temp. TEST (URINE) QUALI TATIVE - Collect Date/Time: 07/26/2021 21:00 [facility] ID: [id number] [address] [place] [address], [address]661 LOINC: 2106-3 Test Value Unit Reference Range Code Code System Flag TEST NEGATIVE 2106-3 LOINC URINALYSIS WITH REFLEX CULT IF POSITIVE* - Collect Date/Time: 07/26/2021 21:00 [facility] ID: [id number] [address] [place] [address], 5661 LOINC: 20539-4 Test Value Unit Reference Range Code Code System Flag COLLECTION MODE: CLEAN CATCH Color YELLOW yellow 5778-6 LOINC Appearance CLEAR clear 5767-9 LOINC Glucose urine 500 negative mg/dl 25149-1 LOINC A Bilirubin SMALL negative 5770-3 LOINC A Ketones >=80 negative mg/dl 2514-8 LOINC A Spec gravity >=1.030 1.003 - 1.030 5811-5 LOINC pH urine 5.5 5.0 - 7.0 2756-5 LOINC Protein NEGATIVE negative mg/dl 80369-3 LOINC Urobilinogen 0.2 <or= 1 EU/dl 69731-0 LOINC Nitrite. NEGATIVE negative 5802-4 LOINC Blood NEGATIVE negative 5794-3 LOINC Leukocytes. NEGATIVE negative MICROSCOPIC NOT INDICAT GLUCOSE FINGER/HEEL CAPILLAR Y - Collect Date/Time: 07/26/2021 20:24 [facility] ID: [id number] [address] [place] [address], [id number] LOINC: 12709-3 Test Value Unit Reference Range Code Code System Flag GLUCOSE CAP 252 mg/dL L=70 H=116 H LIPASE* - Collect Date/Time: 07/26/2021 20:20 [facility] ID: [id number] [address] [place] [address], [id number] LOINC: 3040-3 Test Value Unit Reference Range Code Code System Flag LIPASE 129 U/L L=73 H=393 KETONES QUAL - Collect Date/ Time: 07/26/2021 20:20 [facility] ID: [id number] [address] [place], [place], [address] LOINC: 5567-3 Test Value Unit Reference Range Code Code System Flag ACETONE NEGATIVE 5567-3 LOINC COMPREHENSIVE METABOLIC PANE L (CMP) - Collect Date/Time: 07/26/2021 20:20 [facility] ID: [id number] [address] [place] [address], [address] LOINC: 55603-6 Test Value Unit Reference Range Code Code System Flag GLUCOSE 297 mg/dL L=70 H=116 2345-7 LOINC H BUN 6 mg/dL L=6 H=25 3094-0 LOINC CREATININE 0.73 mg/dL L=0.51 H=0.95 2160-0 LOINC SODIUM SERUM 138 mmol/L L=136 H=145 2951-2 LOINC POTASSIUM SERUM 3.5 mmol/L L=3.4 H=5.2 2823-3 LOINC CHLORIDE SERUM 104 mmol/L L=96 H=110 2075-0 LOINC CARBON DIOXIDE (CO2) 22 mmol/L L=22 H=34 2028-9 LOINC ANION GAP 11.6 mmol/L 73008-7 LOINC CALCIUM SERUM 8.4 mg/dL L=8.2 H=10.2 09080-2 LOINC BILIRUBIN TOTAL 1.0 mg/dL L=0.0 H=1.3 1975-2 LOINC ALK. PHOS. 88 U/L L=46 H=116 6768-6 LOINC SGOT (AST) 35 U/L L=15 H=37 1920-8 LOINC SGPT (ALT) 43 U/L L=12 H=78 1742-6 LOINC TOTAL PROTEIN 7.1 gm/dL L=6.0 H=8.0 2885-2 LOINC ALBUMIN 3.8 gm/dL L=3.4 H=5.0 1751-7 LOINC AGE 46 years eGFR (non-Afr.Amer.) 87 mL/min 75710-1 LOINC eGFR (Afr-Lithuanian) 105 mL/min 17707-5 LOINC CBC W/ DIFFERENTIAL* - Colle ct Date/Time: 07/26/2021 20:20 [facility] ID: [id number] [address] [place], [place], [address] LOINC: 97226-8 Test Value Unit Reference Range Code Code System Flag WBC 10.95 th/cmm L=5.00 H=10.00 6690-2 LOINC H NEUT % 56.8 % L=40.0 H=80.0 LYMPH % 35.3 % L=10.0 H=50.0 MONO % 6.5 % L=2.0 H=12.0 62213-0 LOINC EOS % 0.7 % L=0.0 H=8.0 BASO % 0.5 % L=0.0 H=3.0 IG % 0.2 % L=0.0 H=1.1 2514-8 LOINC NRBC % 0.0 % L=0.0 H=0.0 75941-3 LOINC NEUT abs count 6.2 th/cmm L=1.6 H=8.4 751-8 LOINC LYMPH abs count 3.9 th/cmm L=1.5 H=4.0 731-0 LOINC MONO abs count 0.7 th/cmm L=0.2 H=1.0 742-7 LOINC EOS abs count 0.1 th/cmm L=0.0 H=0.5 711-2 LOINC BASO abs count 0.1 th/cmm L=0.0 H=0.2 704-7 LOINC IG abs count 0.0 th/cmm L=0.0 H=0.1 96005-6 LOINC NRBC abs count 0.0 mil/cmm L=0.0 H=0.0 35277-0 LOINC RBC 4.69 mil/cmm L=3.90 H=5.40 789-8 LOINC HEMOGLOBIN 15.1 gm/dL L=12.0 H=16.0 718-7 LOINC HEMATOCRIT 42 % L=37 H=47 4544-3 LOINC MCV 90 fL L=82 H=92 787-2 LOINC MCH 32.2 pg L=27.0 H=31.0 785-6 LOINC H MCHC 35.9 % L=32.0 H=36.0 786-4 LOINC RDW-SD 39.0 fL L=39.0 H=49.0 788-0 LOINC PLATELET COUNT 263 th/cmm L=150 H=450 777-3 LOINC GLUCOSE FINGER/HEEL CAPILLAR Y - Collect Date/Time: 07/26/2021 12:33 [facility] ID: [id number] [address] [place] [address], [id number] LOINC: 81346-3 Test Value Unit Reference Range Code Code System Flag GLUCOSE CAP 215 mg/dL L=70 H=116 H GLUCOSE FINGER/HEEL CAPILLAR Y - Collect Date/Time: 07/26/2021 11:18 [facility] ID: [id number] [address] [place] [address], [id number] LOINC: 66510-1 Test Value Unit Reference Range Code Code System Flag GLUCOSE CAP 329 mg/dL L=70 H=116 H TEST (URINE) QUALI TATIVE - Collect Date/Time: 07/26/2021 09:59 [facility] ID: [id number] [address] [place] [address], [address] LOINC: 6-3 Test Value Unit Reference Range Code Code System Flag TEST NEGATIVE 2105-3 LOINC URINALYSIS WITH REFLEX CULT IF POSITIVE* - Collect Date/Time: 07/26/2021 09:59 [facility] ID: [id number] [address] [place] [address], [address] LOINC: 59737-3 Test Value Unit Reference Range Code Code System Flag COLLECTION MODE: CLEAN CATCH Color YELLOW yellow 5778-6 LOINC Appearance CLEAR clear 5767-9 LOINC Glucose urine >=1000 negative mg/dl 22393-1 LOINC A Bilirubin NEGATIVE negative 5770-3 LOINC Ketones 15 negative mg/dl 2514-8 LOINC A Spec gravity <=1.005 1.003 - 1.030 5811-5 LOINC pH urine 6.0 5.0 - 7.0 2756-5 LOINC Protein NEGATIVE negative mg/dl 78387-4 LOINC Urobilinogen 0.2 <or= 1 EU/dl 76763-2 LOINC Nitrite. NEGATIVE negative 5802-4 LOINC Blood NEGATIVE negative 5794-3 LOINC Leukocytes. NEGATIVE negative MICROSCOPIC NOT INDICAT ORDER VENOUS BLOOD GAS* - Co llect Date/Time: 07/26/2021 09:59 [facility] ID: [id number] [address] [place], [place], [id number] LOINC: Test Value Unit Reference Range Code Code System Flag Specimen type: VENOUS pH (venous) 7.36 L=7.31 H=7.41 2746-6 LOINC PCO2 (venous) 39.1 mm Hg L=41.0 H=51.0 2703-7 LOINC L PO2 (venous) 74 mm Hg L=30 H=50 2705-2 LOINC H HCO3 22 mmol/L L=22 H=26 1960-4 LOINC TCO2 (venous) 23 mmol/L L=22 H=28 3533-7 LOINC BASE EXCESS (venous) -3 mmol/L L=-2 H=3 3097-3 LOINC L Assist vent. Resp. Rate /min. Temp. KETONES QUAL - Collect Date/ Time: 07/26/2021 09:30 [facility] ID: [id number] [address] [place], [place], [address] LOINC: 5567-3 Test Value Unit Reference Range Code Code System Flag ACETONE SMALL 5567-3 LOINC LIPASE* - Collect Date/Time: 07/26/2021 09:30 [facility] ID: [id number] [facility] [place], [place], [id number] LOINC: 3040-3 Test Value Unit Reference Range Code Code System Flag LIPASE 120 U/L L=73 H=393 CBC W/ DIFFERENTIAL* - Colle ct Date/Time: 07/26/2021 09:30 [facility] ID: [id number] [address] [place], [place], [address] LOINC: 41478-3 Test Value Unit Reference Range Code Code System Flag WBC 8.72 th/cmm L=5.00 H=10.00 6690-2 LOINC NEUT % 64.3 % L=40.0 H=80.0 LYMPH % 27.5 % L=10.0 H=50.0 MONO % 6.7 % L=2.0 H=12.0 41619-9 LOINC EOS % 0.7 % L=0.0 H=8.0 BASO % 0.6 % L=0.0 H=3.0 IG % 0.2 % L=0.0 H=1.1 2514-8 LOINC NRBC % 0.0 % L=0.0 H=0.0 66599-3 LOINC NEUT abs count 5.6 th/cmm L=1.6 H=8.4 751-8 LOINC LYMPH abs count 2.4 th/cmm L=1.5 H=4.0 731-0 LOINC MONO abs count 0.6 th/cmm L=0.2 H=1.0 742-7 LOINC EOS abs count 0.1 th/cmm L=0.0 H=0.5 711-2 LOINC BASO abs count 0.1 th/cmm L=0.0 H=0.2 704-7 LOINC IG abs count 0.0 th/cmm L=0.0 H=0.1 69139-6 LOINC NRBC abs count 0.0 mil/cmm L=0.0 H=0.0 62084-6 LOINC RBC 4.84 mil/cmm L=3.90 H=5.40 789-8 LOINC HEMOGLOBIN 15.5 gm/dL L=12.0 H=16.0 718-7 LOINC HEMATOCRIT 44 % L=37 H=47 4544-3 LOINC MCV 90 fL L=82 H=92 787-2 LOINC MCH 32.0 pg L=27.0 H=31.0 785-6 LOINC H MCHC 35.5 % L=32.0 H=36.0 786-4 LOINC RDW-SD 38.9 fL L=39.0 H=49.0 788-0 LOINC L PLATELET COUNT 290 th/cmm L=150 H=450 777-3 LOINC BASIC METABOLIC PANEL (BMP) - Collect Date/Time: 07/26/2021 09:30 [facility] ID: [id number] [address] [place] [address], [address] LOINC: 41048-4 Test Value Unit Reference Range Code Code System Flag GLUCOSE 500 mg/dL L=70 H=116 2345-7 LOINC HH BUN 8 mg/dL L=6 H=25 3094-0 LOINC CREATININE 1.02 mg/dL L=0.51 H=0.95 2160-0 LOINC H SODIUM SERUM 134 mmol/L L=136 H=145 2951-2 LOINC L POTASSIUM SERUM 3.9 mmol/L L=3.4 H=5.2 2823-3 LOINC CHLORIDE SERUM 97 mmol/L L=96 H=110 2075-0 LOINC CARBON DIOXIDE (CO2) 23 mmol/L L=22 H=34 2028-9 LOINC ANION GAP 13.8 mmol/L 20126-[address] [facility] CALCIUM SERUM 9.2 mg/dL L=8.2 H=10.2 21974-9 INC AGE 46 years eGFR (non-Afr.Amer.) 59 mL/min 44576-[address] [facility] eGFR (Afr-Lithuanian) 71 mL/min 72834-[address] [facility] GLUCOSE FINGER/HEEL CAPILLAR Y - Collect Date/Time: 07/26/2021 09:10 [facility] ID: [id number] [address] [place] [address], [id number] LOINC: 63939-2 Test Value Unit Reference Range Code Code System Flag GLUCOSE CAP 424 mg/dL L=70 H=116 HH Social History Type Status Start Date End Date Code Code Syst em Smoking History Current every day smoker 935875603 SNOMED CT Sex Female Vital Signs Vital Sign Value Unit Lane Value Lane Unit Date/Time Recent/Initial? Code Code System Body Mass Index 38.86 kg/m2 07/26/2021 19:47 Most Recent 23991 -5 LOINC Body Mass Index 38.86 kg/m2 07/26/2021 08:54 Initial 56737 -5 LOINC Systolic Blood Pressure 180 mm[Hg] 07/26/2021 22:19 Most Recent 8480- 6 LOINC Diastolic Blood Pressure 96 mm[Hg] 07/26/2021 22:19 Most Recent 8462- 4 LOINC Systolic Blood Pressure 165 mm[Hg] 07/26/2021 08:54 Initial 8480- 6 LOINC Diastolic Blood Pressure 78 mm[Hg] 07/26/2021 08:54 Initial 8462- 4 LOINC Body Surface Area 1.95 m2 07/26/2021 19:47 Most Recent 3140- 1 LOINC Body Surface Area 1.95 m2 07/26/2021 08:54 Initial 3140- 1 LOINC Height 152.400 0 cm 60.00 in 07/26/2021 19:47 Most Recent 8302- 2 LOINC Height 152.400 0 cm 60.00 in 07/26/2021 08:54 Initial 8302- 2 LOINC O2 Saturation 97 % 2021 22:19 Most Recent 62889 -5 LOINC O2 Saturation 96 % 2021 08:54 Initial 69873 -5 LOINC Pulse 102.0 /min 07/26/2021 22:19 Most Recent 8867- 4 LOINC Pulse 85.0 /min 07/26/2021 08:54 Initial 8867- 4 LOINC Respiration 19 /min 07/27/19 22:19 Most Recent 9279- 1 LOINC Respiration 16 /min 07/27/19 08:54 Initial 9279- 1 LOINC Temperature 35.8 Jazmine 96.4 F 07/27/19 19:47 Most Recent 8310- 5 LOINC Temperature 36.1 Jazmine 97.0 F 03/30/20 22 08:54 Initial 8310- 5 LOINC Weight 90.26 kg 199.00 lbs 07/26/2021 19:47 Most Recent 87339 -[address] [facility] Weight 90.26 kg 199.00 lbs 07/26/2021 08:54 Initial 00315 -[address] [facility] Medications Medication Start Date End Date Route Frequency Dose Code Code System Medication Instructions Home Meds Cyclobenzaprine 10MG Oral Tablet 12/14/2018 10/26/2021 ORAL THREE TIMES A DAY 10 MILLIGRAMS 435355 RxNorm TAKE 10 MILLIGRAMS ORAL THREE TIMES A DAY Ondansetron 4MG Oral Tablet, Disintegrating 07/05/2021 10/26/2021 ORAL NEEDED EVERY 6 HOURS 1 TABLET 584540 RxNorm TAKE 1 TABLET ORAL NEEDED EVERY 6 HOURS FOR Nausea/Vomi ting Phenergan 25MG Rectal Suppository 07/26/2021 10/26/2021 RECTA L DAILY 1 SUPPOSITORY 450394 RxNorm INSERT 1 SUPPOSITORY RECTAL DAILY HYDROcodone bitartrate-aceta minophen 5MG-325MG Oral Tablet 09/19/2021 10/26/2021 ORAL EVERY 6 HOURS 1 TABLET 905506 RxNorm TAKE 1 TABLET ORAL EVERY 6 HOURS Zithromax 250MG Oral Tablet 04/17/2022 01/25/2023 ORAL DAILY 1 TABLET 358542 RxNorm TAKE 1 TABLET ORAL DAILY predniSONE 20MG Oral Tablet 04/17/2022 01/07/2023 ORAL DAILY 2 TABLET 657697 RxNorm TAKE 2 TABLET ORAL DAILY predniSONE 20MG Oral Tablet 01/07/2023 06/23/2023 ORAL DAILY 2 TABLET 184481 RxNorm TAKE 2 TABLET ORAL DAILY Percocet 5MG-325MG Oral Tablet 01/07/2023 06/23/2023 ORAL NEEDED EVERY 4 HOURS 1 TABLET 3586169 RxNorm TAKE 1 TABLET ORAL NEEDED EVERY 4 HOURS predniSONE 20MG Oral Tablet 01/07/2023 01/07/2023 ORAL DAILY 2 TABLET 518229 RxNorm TAKE 2 TABLET ORAL DAILY SEROquel 100MG Oral Tablet 06/23/2023 11/11/2023 ORAL BEDTIM E 150 MILLIGRAMS 780270 RxNorm TAKE 150 MILLIGRAMS ORAL BEDTIME LaMICtal 150MG Oral Tablet 06/23/2023 11/11/2023 ORAL DAILY 1 TABLET RxNorm TAKE 1 TABLET ORAL DAILY Ondansetron 4MG Oral Tablet 06/23/2023 01/31/2024 ORAL NEEDED EVERY 6 HOURS 4 MILLIGRAMS 19790829 RxNorm TAKE 4 MILLIGRAMS ORAL NEEDED EVERY 6 HOURS HumaLOG 100U/1ML Injection Solution 06/23/2023 Unknown INJEC TION DAILY 1 unit(s) 985456 RxNorm 1 EACH INJECTION DAILY Spironolactone 100MG Oral Tablet 06/23/2023 Unknown ORAL DAILY 100 MILLIGRAMS 19810531 RxNorm TAKE 100 MILLIGRAMS ORAL DAILY Vraylar 6MG Oral Capsule 06/23/2023 11/11/2023 ORAL DAILY 6 MILLIGRAMS 3890682 RxNorm TAKE 6 MILLIGRAMS ORAL DAILY Mounjaro [...] Status Code Code System SLURRED SPEECH active 251606344 SNOME D-CT DIABETES 2 active 19038221 SNOMED-CT BIPOLAR DISORDER active 41168647 SNO MED-CT PTSD 09/19/2021 resolved 22152524 SNOMED-CT FIBROMYALGIA 09/19/2021 resolved 645094205 SNOMED -CT DIABETES 2 07/05/2021 resolved 45175852 SNOMED-C T FALL FROM STAIRS 06/23/2023 resolved 506156993 SN OMED-CT CLOSED FRACTURE OF RIGHT HUMERUS 06/23/2023 resolved 32852106902572336 SNOMED-CT HTN 09/19/2021 resolved 38816041 SNOMED-CT BIPOLAR DISORDER 09/19/2021 resolved 19615362 SN OMED-CT Allergies and Adverse Reactions Allergy Substance Reaction Severity Start Date Concern Status Co de Code System LISINOPRIL Active 37033 RxNorm AMBIEN Altered Mental Status (SNOMED-CT: 780636065) Active 378368 RxNorm Plan of Treatment Lab Draw 07/30/2020 Lab Draw 05/28/2020 US ABDOMEN LIMITED 1 ORGAN 05/06/2023 US RIGHT UPPER QUAD 07/05/2021 Encounters Encounter Diagnosis Start Date Code Code Sys tem Nausea with vomiting, unspecified 07/26/2021 SNOMED-CT Personal Care Team Section Performer Name Performer Role Active Date Inactive Da te
--- OUTSIDE RECORDS SUMMARY | 2024-02-14 15:09 | XMS_ITS ---
Author Organization Unknown Address [address] [place] [address] [phone] Phone Care Team Providers Care Marble Cleaner Name Role Phone TALA [place] Attending Unavailable JES DELAROSA Primary Unavailable Social History Type Status Start Date End Date Code Code Syst em Smoking History Current every day smoker 036464696 SNOMED CT Sex Female Medications Medication Start Date End Date Route Frequency Dose Code Code System Medication Instructions Home Meds Cyclobenzaprine 10MG Oral Tablet 12/14/2018 10/26/2021 ORAL THREE TIMES A DAY 10 MILLIGRAMS 497143 RxNorm TAKE 10 MILLIGRAMS ORAL THREE TIMES A DAY Ondansetron 4MG Oral Tablet, Disintegrating 07/05/2021 10/26/2021 ORAL NEEDED EVERY 6 HOURS 1 TABLET 958186 RxNorm TAKE 1 TABLET ORAL NEEDED EVERY 6 HOURS FOR Nausea/Vomi ting Phenergan 25MG Rectal Suppository 07/26/2021 10/26/2021 RECTA L DAILY 1 SUPPOSITORY 742280 RxNorm INSERT 1 SUPPOSITORY RECTAL DAILY HYDROcodone bitartrate-aceta minophen 5MG-325MG Oral Tablet 09/19/2021 10/26/2021 ORAL EVERY 6 HOURS 1 TABLET 478778 RxNorm TAKE 1 TABLET ORAL EVERY 6 HOURS Zithromax 250MG Oral Tablet 04/17/2022 01/25/2023 ORAL DAILY 1 TABLET 678892 RxNorm TAKE 1 TABLET ORAL DAILY predniSONE 20MG Oral Tablet 04/17/2022 01/07/2023 ORAL DAILY 2 TABLET 226850 RxNorm TAKE 2 TABLET ORAL DAILY predniSONE 20MG Oral Tablet 01/07/2023 06/23/2023 ORAL DAILY 2 TABLET 994796 RxNorm TAKE 2 TABLET ORAL DAILY Percocet 5MG-325MG Oral Tablet 01/07/2023 06/23/2023 ORAL NEEDED EVERY 4 HOURS 1 TABLET 8447878 RxNorm TAKE 1 TABLET ORAL NEEDED EVERY 4 HOURS predniSONE 20MG Oral Tablet 01/07/2023 01/07/2023 ORAL DAILY 2 TABLET 204203 RxNorm TAKE 2 TABLET ORAL DAILY SEROquel 100MG Oral Tablet 06/23/2023 11/11/2023 ORAL BEDTIM E 150 MILLIGRAMS 012695 RxNorm TAKE 150 MILLIGRAMS ORAL BEDTIME LaMICtal 150MG Oral Tablet 06/23/2023 11/11/2023 ORAL DAILY 1 TABLET RxNorm TAKE 1 TABLET ORAL DAILY Ondansetron 4MG Oral Tablet 06/23/2023 01/31/2024 ORAL NEEDED EVERY 6 HOURS 4 MILLIGRAMS 281497 RxNorm TAKE 4 MILLIGRAMS ORAL NEEDED EVERY 6 HOURS HumaLOG 100U/1ML Injection Solution 06/23/2023 Unknown INJEC TION DAILY 1 unit(s) 484842 RxNorm 1 EACH INJECTION DAILY Spironolactone 100MG Oral Tablet 06/23/2023 Unknown ORAL DAILY 100 MILLIGRAMS 19810531 RxNorm TAKE 100 MILLIGRAMS ORAL DAILY Vraylar 6MG Oral Capsule 06/23/2023 11/11/2023 ORAL DAILY 6 MILLIGRAMS 3342709 RxNorm TAKE 6 MILLIGRAMS ORAL DAILY Mounjaro [...] Status Code Code System SLURRED SPEECH active 590634348 SNOME D-CT DIABETES 2 active 34938840 SNOMED-CT BIPOLAR DISORDER active 81642275 SNO MED-CT PTSD 09/19/2021 resolved 01919315 SNOMED-CT FIBROMYALGIA 09/19/2021 resolved 252825420 SNOMED -CT DIABETES 2 07/05/2021 resolved 66726660 SNOMED-C T FALL FROM STAIRS 06/23/2023 resolved 754842102 SN OMED-CT CLOSED FRACTURE OF RIGHT HUMERUS 06/23/2023 resolved 81131548387554546 SNOMED-CT HTN 09/19/2021 resolved 07627331 SNOMED-CT BIPOLAR DISORDER 09/19/2021 resolved 24331362 SN OMED-CT Allergies and Adverse Reactions Allergy Substance Reaction Severity Start Date Concern Status Co de Code System LISINOPRIL Active 12657 RxNorm AMBIEN Altered Mental Status (SNOMED-CT: 986635792) Active 850272 RxNorm Plan of Treatment Lab Draw 07/30/2020 Lab Draw 05/28/2020 US ABDOMEN LIMITED 1 ORGAN 05/06/2023 US RIGHT UPPER QUAD 07/05/2021 Encounters Encounter Diagnosis Start Date Code Code Sys tem Canceled operative procedure 09/14/2021 61873845 SNOMED-CT Personal Care Team Section Performer Name Performer Role Active Date Inactive Da te
--- OUTSIDE RECORDS SUMMARY | 2024-02-14 15:09 | XMS_ITS ---
Author Organization Unknown Address [address] [place] [address] [phone] Phone Care Team Providers Care Vacuum Cleaner Mechanic Name Role Phone TALA RADHIKA [place] Attending Unavailable JES DELAROSA Primary Unavailable Results XR HIP LT 2-3V* - Completed: 08/17/2021 15:32 LOINC: LEFT HIP - 2 VIEWS:Cartilagi nous joint spaces appear fairly well maintained. Mild hypertrophic changes are noted at the acetabulae bilaterally. No other bony abnormality is seen. CONCLUSION:Mild DJD both hips. Dictated by: HOANG DEL TORO RADIOLOGIST Transcribed by: KARSTEN 08/17/21/15:51 D , August 17, 2021 2:57:48 PM [id number] Electronically Reviewed and Signed By: KELLI DEL TORO RADIOLOGIST 08/17/21 16:03 Copy for: JES LUNDILY via fax Copy for: [facility] [employer] [facility] Social History Type Status Start Date End Date Code Code Syst em Smoking History Current every day smoker 564661768 SNOMED CT Sex Female Medications Medication Start Date End Date Route Frequency Dose Code Code System Medication Instructions Home Meds Cyclobenzaprine 10MG Oral Tablet 12/14/2018 10/26/2021 ORAL THREE TIMES A DAY 10 MILLIGRAMS 739316 RxNorm TAKE 10 MILLIGRAMS ORAL THREE TIMES A DAY Ondansetron 4MG Oral Tablet, Disintegrating 07/05/2021 10/26/2021 ORAL NEEDED EVERY 6 HOURS 1 TABLET 447009 RxNorm TAKE 1 TABLET ORAL NEEDED EVERY 6 HOURS FOR Nausea/Vomi ting Phenergan 25MG Rectal Suppository 07/26/2021 10/26/2021 RECTA L DAILY 1 SUPPOSITORY 944032 RxNorm INSERT 1 SUPPOSITORY RECTAL DAILY HYDROcodone bitartrate-aceta minophen 5MG-325MG Oral Tablet 09/19/2021 10/26/2021 ORAL EVERY 6 HOURS 1 TABLET 256169 RxNorm TAKE 1 TABLET ORAL EVERY 6 HOURS Zithromax 250MG Oral Tablet 04/17/2022 01/25/2023 ORAL DAILY 1 TABLET 613570 RxNorm TAKE 1 TABLET ORAL DAILY predniSONE 20MG Oral Tablet 04/17/2022 01/07/2023 ORAL DAILY 2 TABLET 622515 RxNorm TAKE 2 TABLET ORAL DAILY predniSONE 20MG Oral Tablet 01/07/2023 06/23/2023 ORAL DAILY 2 TABLET 794680 RxNorm TAKE 2 TABLET ORAL DAILY Percocet 5MG-325MG Oral Tablet 01/07/2023 06/23/2023 ORAL NEEDED EVERY 4 HOURS 1 TABLET 4155151 RxNorm TAKE 1 TABLET ORAL NEEDED EVERY 4 HOURS predniSONE 20MG Oral Tablet 01/07/2023 01/07/2023 ORAL DAILY 2 TABLET 151478 RxNorm TAKE 2 TABLET ORAL DAILY SEROquel 100MG Oral Tablet 06/23/2023 11/11/2023 ORAL BEDTIM E 150 MILLIGRAMS 110472 RxNorm TAKE 150 MILLIGRAMS ORAL BEDTIME LaMICtal 150MG Oral Tablet 06/23/2023 11/11/2023 ORAL DAILY 1 TABLET RxNorm TAKE 1 TABLET ORAL DAILY Ondansetron 4MG Oral Tablet 06/23/2023 01/31/2024 ORAL NEEDED EVERY 6 HOURS 4 MILLIGRAMS 373824 RxNorm TAKE 4 MILLIGRAMS ORAL NEEDED EVERY 6 HOURS HumaLOG 100U/1ML Injection Solution 06/23/2023 Unknown INJEC TION DAILY 1 unit(s) 522698 RxNorm 1 EACH INJECTION DAILY Spironolactone 100MG Oral Tablet 06/23/2023 Unknown ORAL DAILY 100 MILLIGRAMS 394467 RxNorm TAKE 100 MILLIGRAMS ORAL DAILY Vraylar 6MG Oral Capsule 06/23/2023 11/11/2023 ORAL DAILY 6 MILLIGRAMS 7929014 RxNorm TAKE 6 MILLIGRAMS ORAL DAILY Mounjaro [...] Status Code Code System SLURRED SPEECH active 711557533 SNOME D-CT DIABETES 2 active 84845507 SNOMED-CT BIPOLAR DISORDER active 95831014 SNO MED-CT PTSD 09/19/2021 resolved 59804004 SNOMED-CT FIBROMYALGIA 09/19/2021 resolved 898777654 SNOMED -CT DIABETES 2 07/05/2021 resolved 45125532 SNOMED-C T FALL FROM STAIRS 06/23/2023 resolved 757612051 SN OMED-CT CLOSED FRACTURE OF RIGHT HUMERUS 06/23/2023 resolved [id number] SNOMED-CT HTN 09/19/2021 resolved 75493256 SNOMED-CT BIPOLAR DISORDER 09/19/2021 resolved 95861868 SN OMED-CT Allergies and Adverse Reactions Allergy Substance Reaction Severity Start Date Concern Status Co de Code System LISINOPRIL Active 92198 RxNorm AMBIEN Altered Mental Status (SNOMED-CT: 100800624) Active 792663 RxNorm Plan of Treatment Lab Draw 07/30/2020 Lab Draw 05/28/2020 US ABDOMEN LIMITED 1 ORGAN 05/06/2023 US RIGHT UPPER QUAD 07/05/2021 Encounters Encounter Diagnosis Start Date Code Code Sys tem 08/17/2021 [id number] SNOMED-CT Personal Care Team Section Performer Name Performer Role Active Date Inactive Da te
--- OUTSIDE RECORDS SUMMARY | 2024-02-14 15:09 | XMS_ITS ---
Author Organization Unknown Address [address] [place] [address] [phone] Phone Care Team Providers Care Dry Yard Worker Name Role Phone YISEL BUENO Registered Nurse Unavailable SILVIA CLEMENT Registered Nurse Unavailable MALIA Anthony Attending Unavailable SARA QUESADA Unavailable JES DELAROSA Primary Unavailable UNLISTED PROVIDER - REQUESTED Xhandoff Un available Results MAGNESIUM SERUM* - Collect D ate/Time: 09/19/2021 04:24 [facility] ID: [id number] [address] [place] [address], [address] LOINC: 84666-4 Test Value Unit Reference Range Code Code System Flag MAGNESIUM 1.7 mg/dL L=1.8 H=2.4 90935-3 LOINC L HCG QUANTITATIVE WHOLE MOLEC ULE* - Collect Date/Time: 09/19/2021 04:24 [facility] ID: [id number] [address] [place] [address], [address] LOINC: 71945-1 Test Value Unit Reference Range Code Code System Flag HCG, total+Beta subs <1 26991-5 LOINC COMPREHENSIVE METABOLIC PANE L (CMP) - Collect Date/Time: 09/19/2021 04:24 [facility] ID: [id number] [address] [place] [address], [address] LOINC: 91836-6 Test Value Unit Reference Range Code Code System Flag GLUCOSE 411 mg/dL L=70 H=116 2345-7 LOINC HH BUN 13 mg/dL L=6 H=25 3094-0 LOINC CREATININE 0.85 mg/dL L=0.51 H=0.95 2160-0 LOINC SODIUM SERUM 133 mmol/L L=136 H=145 2951-2 LOINC L POTASSIUM SERUM 3.8 mmol/L L=3.4 H=5.2 2823-3 LOINC CHLORIDE SERUM 98 mmol/L L=96 H=110 2075-0 LOINC CARBON DIOXIDE (CO2) 24 mmol/L L=22 H=34 2028-9 LOINC ANION GAP 10.8 mmol/L 67843-4 LOINC CALCIUM SERUM 9.5 mg/dL L=8.2 H=10.2 72550-1 LOINC BILIRUBIN TOTAL 0.7 mg/dL L=0.0 H=1.3 1975-2 LOINC ALK. PHOS. 103 U/L L=46 H=116 6768-6 LOINC SGOT (AST) 24 U/L L=15 H=37 1920-8 LOINC SGPT (ALT) 53 U/L L=12 H=78 1742-6 LOINC TOTAL PROTEIN 7.2 gm/dL L=6.0 H=8.0 2885-2 LOINC ALBUMIN 3.8 gm/dL L=3.4 H=5.0 1751-7 LOINC AGE 46 years eGFR (non-Afr.Amer.) 73 mL/min 37199-9 LOINC eGFR (Afr-[place]) 88 mL/min 00585-7 LOINC CBC W/ DIFFERENTIAL* - Colle ct Date/Time: 09/19/2021 04:24 [facility] ID: [id number] [address] [place], [place], [address] LOINC: 41867-0 Test Value Unit Reference Range Code Code System Flag WBC 16.28 th/cmm L=5.00 H=10.00 6690-2 LOINC H NEUT % 73.7 % L=40.0 H=80.0 LYMPH % 18.9 % L=10.0 H=50.0 MONO % 6.0 % L=2.0 H=12.0 23869-7 LOINC EOS % 0.4 % L=0.0 H=8.0 BASO % 0.4 % L=0.0 H=3.0 IG % 0.6 % L=0.0 H=1.1 2514-8 LOINC NRBC % 0.0 % L=0.0 H=0.0 35964-7 LOINC NEUT abs count 12.0 th/cmm L=1.6 H=8.4 751-8 LOINC H LYMPH abs count 3.1 th/cmm L=1.5 H=4.0 731-0 LOINC MONO abs count 1.0 th/cmm L=0.2 H=1.0 742-7 LOINC EOS abs count 0.1 th/cmm L=0.0 H=0.5 711-2 LOINC BASO abs count 0.1 th/cmm L=0.0 H=0.2 704-7 LOINC IG abs count 0.1 th/cmm L=0.0 H=0.1 76187-3 LOINC NRBC abs count 0.0 mil/cmm L=0.0 H=0.0 68291-7 LOINC RBC 4.80 mil/cmm L=3.90 H=5.40 789-8 LOINC HEMOGLOBIN 16.0 gm/dL L=12.0 H=16.0 718-7 LOINC HEMATOCRIT 44 % L=37 H=47 4544-3 LOINC MCV 92 fL L=82 H=92 787-2 LOINC MCH 33.3 pg L=27.0 H=31.0 785-6 LOINC H MCHC 36.2 % L=32.0 H=36.0 786-4 LOINC H RDW-SD 39.8 fL L=39.0 H=49.0 788-0 LOINC PLATELET COUNT 213 th/cmm L=150 H=450 777-3 LOINC [facility] COVID RHEONIX* - Vannessa ect Date/Time: 09/19/2021 04:12 [facility] ID: [id number] [address] [place], [place], [id number] LOINC: 28430-3 Test Value Unit Reference Range Code Code System Flag Tier- INPATIENT/ED 37303-4 LOINC SARS COV2 RNA: NEGATIVE REFERENCE RAN GE: NEGAT 12729-[address] [facility] [address] CXR ABD PELVIS WO CONTRAS T* - Completed: 09/19/2021 04:37 [facility]: Radiation optimization:?? Al l CT scans at this facility use at least one of these dose optimization techniques: automated exposure control; mA and/or kV adjustment per patient size (includes targeted exams where dose is matched to clinical indication); or iterative reconstruction. CT SCAN OF THE CHEST, ABDOMEN, AND PELVIS, NONCONTRAST EXAMINATION: There are no priors for comparison. CT SCAN OF THE ABDOMEN AND PELVIS: Lack of IV contrast does limit evaluation of the abdominal and pelvic organs. There is mild patient motion artifact. There is fatty infiltration of the liver. The liver measures 21 cm long. The unenhanced visualized portions of the pancreas, spleen, and adrenal glands are unremarkable. The patient is status post cholecystectomy. There is no biliary ductal dilatation. The kidneys, ureters, urinary bladder, and reproductive organs are unremarkable. The bowel shows no evidence of obstruction or inflammation. No evidence of appendicitis is seen. There is a right sided abdominal wall hernia containing an unremarkable loop of small bowel. No evidence of strangulation or obstruction. Postsurgical changes are seen in the anterior abdominal wall with small fat containing anterior abdominal wall hernia present. No significant abdominal or pelvic adenopathy, ascites, or pneumoperitoneum. No acute fractures identified. IMPRESSION: No acute abdominal or pelvic process. CT SCAN OF THE CHEST: The thyroid gland is unremarkable. The tracheobronchial tree is unremarkable. No focal consolidating infiltrates are seen. No effusion or pneumothorax is present. Heart size is within normal limits. No coronary artery calcifications are seen. There may be a tiny anterior pericardial effusion versus pleural thickening. The esophagus is unremarkable. No evidence of thoracic adenopathy. A fracture of the midshaft of the right humerus is noted and best described on the x-rays of the humerus. No other thoracic fracture is identified. Soft tissues are unremarkable. IMPRESSION: 1. Fracture of the midshaft of the right humerus. Please refer to the x-ray of the right humerus for complete details. 2. No acute pulmonary process. 3. Small anterior pericardial effusion versus pericardial thickening. Dictated by: TOÑO MATTHEWS MD Transcribed by: KARIS 09/20/21/13:12 [id number] Electronically Reviewed and Signed By: ROYA MATTHEWS MD 09/22/21 08:32 Copy for: JES DELAROSA via fax Copy for: [facility] [address] HEAD AND CSPINE ZACKERY CHENG* - Completed: 09/19/2021 04:37 LOINC: Radiation optimization:?? Al l CT scans at this facility use at least one of these dose optimization techniques: automated exposure control; mA and/or kV adjustment per patient size (includes targeted exams where dose is matched to clinical indication); or iterative reconstruction. CT OF THE HEAD AND NECK: CT OF THE HEAD: No priors for comparison. The ventricular system is normal in appearance. There is no evidence of an epidural, subdural, intraparenchymal or subarachnoid hemorrhage. No focal area of decreased attenuation is seen. CONCLUSION: Normal noncontrast cranial CT. CT OF THE CERVICAL SPINE: Multiple contiguous axial images of the cervical spine were obtained. Sagittal and coronal reformatted images were evaluated on the Siemens workstation. There is no acute fracture or subluxation. The odontoid is intact. The lateral masses are well aligned. The soft tissues are unremarkable. IMPRESSION: No acute fractures or subluxations in the cervical spine. Dictated by: TOÑO MATTHEWS MD Transcribed by: KARIS 09/20/2112:59 [id number] Electronically Reviewed and Signed By: ROYA MATTHEWS MD 09/22/21 08:32 Copy for: JES DELAROSA via fax Copy for: [facility] MGMT DISCHARGED XR ANKLE RT 3V* - Completed: 09/19/2021 04:37 LOINC: RIGHT ANKLE, 4 IMAGES: Comparison is 07/01/2021. On there lateral view, there is a question of a lucency in the plantar surface of the cuboid bone, not present on the prior examination. Question of a nondisplaced fracture. No other fracture or dislocation is seen. There is spurring seen at the posterior calcaneus. The soft tissues are unremarkable. IMPRESSION: Question of a fracture at the plantar surface of the calcaneus. CT scan should be considered for further evaluation. Dictated by: TOÑO MATTHEWS MD Transcribed by: KARIS 09/20/2110:47 [id number] Electronically Reviewed and Signed By: ROYA MATTHEWS MD 09/22/21 08:28 Copy for: JES DELAROSA via fax Copy for: [facility] MGMT DISCHARGED XR HUMERUS 2V RT* - Complete d: 09/19/2021 08:58 LOINC: RIGHT HUMERUS, 2 VIEWS: Comparison with examination from earlier in the day. There is again seen a fracture of the midshaft of the right humerus. There is medial displacement of the distal fracture, almost on shafts width. There is angulation of the fracture noted. No other fracture or dislocation is seen. Soft tissue swelling is present. IMPRESSION: Right humeral fracture as described. Dictated by: TOÑO MATTHEWS MD Transcribed by: KARIS 09/20/2112:41 [id number] Electronically Reviewed and Signed By: ROYA MATTHEWS MD 09/22/21 08:32 Copy for: JES DELAROSA via fax Copy for: [facility] MGMT DISCHARGED XR HUMERUS 2V RT* - Complete d: 09/19/2021 04:37 LOINC: RIGHT HUMERUS, 2 VIEWS: There is a complete fracture through the midshaft of the right humerus. The distal fracture is displaced medially. There is mild angulation of the fracture with the apex lateral. There is soft tissue swelling of the upper arm. IMPRESSION: Displaced angulated fracture of the midshaft of the right humerus. Dictated by: TOÑO MATTHEWS MD Transcribed by: KARIS 09/20/2110:44 [id number] Electronically Reviewed and Signed By: ROYA MATTHEWS MD 09/22/21 08:28 Copy for: JES DELAROSA via fax Copy for: [facility] MGMT DISCHARGED XR PELVIS AND HIP LAT RT - C ompleted: 09/19/2021 04:37 LOINC: PELVIS AND RIGHT HIP, 2 VIEW S: Comparison is 08/17/2021. No acute fracture or dislocation is seen. There is tiny calcification inferior to the right inferior pubic ramus, which is unchanged. The sacroiliac joints and symphysis pubis are intact. Soft tissues are unremarkable. IMPRESSION: No acute fracture or dislocation. Dictated by: TOÑO MATTHEWS MD Transcribed by: KARIS 09/20/21:45 [id number] Electronically Reviewed and Signed By: ROYA MATTHEWS MD 09/22/21 08:28 Copy for: JES DELAROSA via fax Copy for: [facility] MGMT DISCHARGED XR WRIST 3V OR MORE LT* - Co mpleted: 09/19/2021 04:37 LOINC: LEFT WRIST, 4 VIEWS: No acute fracture or dislocation is present. Dictated by: TOÑO MATTHEWS MD Transcribed by: KARIS 09/20/2111:27 [id number] Electronically Reviewed and Signed By: ROYA MATTHEWS MD 09/22/21 08:28 Copy for: JES DELAROSA via fax Copy for: [facility] MGMT DISCHARGED Social History Type Status Start Date End Date Code Code Syst em Smoking History Current every day smoker 027525189 SNOMED CT Sex Female Vital Signs Vital Sign Value Unit [place] Value [place] Unit Date/Time Recent/Initial? Code Code System Body Mass Index 38.08 kg/m2 09/19/2021 03:10 Initial 90005 -5 LOINC Systolic Blood Pressure 130 mm[Hg] 09/19/2021 05:15 Most Recent 8480- 6 LOINC Diastolic Blood Pressure 63 mm[Hg] 09/19/2021 05:15 Most Recent 8462- 4 LOINC Systolic Blood Pressure 155 mm[Hg] 09/19/2021 03:19 Initial 8480- 6 LOINC Diastolic Blood Pressure 92 mm[Hg] 09/19/2021 03:19 Initial 8462- 4 LOINC Body Surface Area 1.94 m2 09/19/2021 03:10 Initial 3140- 1 LOINC Height 152.400 0 cm 60.00 in 09/19/2021 03:10 Initial 8302- 2 LOINC O2 Saturation 96 % 2021 06:15 Most Recent 21716 -5 LOINC O2 Saturation 94 % 2021 03:19 Initial 09086 -5 LOINC Pulse 110.0 /min 09/19/2021 06:15 Most Recent 8867- 4 LOINC Pulse 119.0 /min 09/19/2021 03:19 Initial 8867- 4 LOINC Respiration 17 /min 09/20/19 06:15 Most Recent 9279- 1 LOINC Respiration 21 /min 09/20/19 03:19 Initial 9279- 1 [facility] Temperature 36.7 Jazmine 98.1 F 09/20/19 03:19 Initial 8310- 5 [facility] Weight 88.45 kg 195.00 lbs 09/19/2021 03:10 Initial 61096 -7 [facility] Medications Medication Start Date End Date Route Frequency Dose Code Code System Medication Instructions Home Meds Cyclobenzaprine 10MG Oral Tablet 12/14/2018 10/26/2021 ORAL THREE TIMES A DAY 10 MILLIGRAMS 055262 RxNorm TAKE 10 MILLIGRAMS ORAL THREE TIMES A DAY Ondansetron 4MG Oral Tablet, Disintegrating 07/05/2021 10/26/2021 ORAL NEEDED EVERY 6 HOURS 1 TABLET 209511 RxNorm TAKE 1 TABLET ORAL NEEDED EVERY 6 HOURS FOR Nausea/Vomi ting Phenergan 25MG Rectal Suppository 07/26/2021 10/26/2021 RECTA L DAILY 1 SUPPOSITORY 368375 RxNorm INSERT 1 SUPPOSITORY RECTAL DAILY HYDROcodone bitartrate-aceta minophen 5MG-325MG Oral Tablet 09/19/2021 10/26/2021 ORAL EVERY 6 HOURS 1 TABLET 298310 RxNorm TAKE 1 TABLET ORAL EVERY 6 HOURS Zithromax 250MG Oral Tablet 04/17/2022 01/25/2023 ORAL DAILY 1 TABLET 097575 RxNorm TAKE 1 TABLET ORAL DAILY predniSONE 20MG Oral Tablet 04/17/2022 01/07/2023 ORAL DAILY 2 TABLET 474307 RxNorm TAKE 2 TABLET ORAL DAILY predniSONE 20MG Oral Tablet 01/07/2023 06/23/2023 ORAL DAILY 2 TABLET 438292 RxNorm TAKE 2 TABLET ORAL DAILY Percocet 5MG-325MG Oral Tablet 01/07/2023 06/23/2023 ORAL NEEDED EVERY 4 HOURS 1 TABLET 3714419 RxNorm TAKE 1 TABLET ORAL NEEDED EVERY 4 HOURS predniSONE 20MG Oral Tablet 01/07/2023 01/07/2023 ORAL DAILY 2 TABLET 227650 RxNorm TAKE 2 TABLET ORAL DAILY SEROquel 100MG Oral Tablet 06/23/2023 11/11/2023 ORAL BEDTIM E 150 MILLIGRAMS 966848 RxNorm TAKE 150 MILLIGRAMS ORAL BEDTIME LaMICtal 150MG Oral Tablet 06/23/2023 11/11/2023 ORAL DAILY 1 TABLET RxNorm TAKE 1 TABLET ORAL DAILY Ondansetron 4MG Oral Tablet 06/23/2023 01/31/2024 ORAL NEEDED EVERY 6 HOURS 4 MILLIGRAMS 479661 RxNorm TAKE 4 MILLIGRAMS ORAL NEEDED EVERY 6 HOURS HumaLOG 100U/1ML Injection Solution 06/23/2023 Unknown INJEC TION DAILY 1 unit(s) 902753 RxNorm 1 EACH INJECTION DAILY Spironolactone 100MG Oral Tablet 06/23/2023 Unknown ORAL DAILY 100 MILLIGRAMS 19810531 RxNorm TAKE 100 MILLIGRAMS ORAL DAILY Vraylar 6MG Oral Capsule 06/23/2023 11/11/2023 ORAL DAILY 6 MILLIGRAMS 7717407 RxNorm TAKE 6 MILLIGRAMS ORAL DAILY Mounjaro [...] Status Code Code System SLURRED SPEECH active 295468798 SNOME D-CT DIABETES 2 active 19978066 SNOMED-CT BIPOLAR DISORDER active 77247578 SNO MED-CT PTSD 09/19/2021 resolved 96414223 SNOMED-CT FIBROMYALGIA 09/19/2021 resolved 843619577 SNOMED -CT DIABETES 2 07/05/2021 resolved 82592821 SNOMED-C T FALL FROM STAIRS 06/23/2023 resolved 712315508 SN OMED-CT CLOSED FRACTURE OF RIGHT HUMERUS 06/23/2023 resolved 35692857764291552 SNOMED-CT HTN 09/19/2021 resolved 75884877 SNOMED-CT BIPOLAR DISORDER 09/19/2021 resolved 01450223 SN OMED-CT Allergies and Adverse Reactions Allergy Substance Reaction Severity Start Date Concern Status Co de Code System LISINOPRIL Active 97621 RxNorm AMBIEN Altered Mental Status (SNOMED-CT: 991428558) Active 108511 RxNorm Plan of Treatment Lab Draw 07/30/2020 Lab Draw 05/28/2020 US ABDOMEN LIMITED 1 ORGAN 05/06/2023 US RIGHT UPPER QUAD 07/05/2021 Encounters Encounter Diagnosis Start Date Code Code Sys tem Unspecified fracture of shaf t of humerus, right arm, initial encounter for closed fracture 09/19/2021 SN OMED-CT Personal Care Team Section Performer Name Performer Role Active Date Inactive Da te
--- OUTSIDE RECORDS SUMMARY | 2024-02-14 15:10 | XMS_ITS ---
Author Organization Unknown Address [address] [place] [address] [phone] Phone Care Team Providers Care Ring Making Machine Operator Name Role Phone TIMBO ADAMARIS PHELAN Registered Nurse Unavailable MADY Martinez Attending Unavailable JES LUNDILY Primary Unavailable UNLISTED PROVIDER - REQUESTED Xhandoff Un available Results XR CHEST PORTABLE OR 1V - Co mpleted: 01/03/2022 19:02 LOINC: PORTABLE CHEST Comparison 27 November 2019. The exam is somewhat limited by suboptimal pulmonary inflation and under penetration. The cardiac and mediastinal contours have a normal appearance. There are minimally increased densities at the lung bases likely reflecting atelectasis. No focal areas of consolidation, effusion or pneumothorax is seen. IMPRESSION: Negative portable chest. Dictated by: CEO ANGEL DRAPER MD Transcribed by: [facility] [place]/04/22/14:03 D December 8:26:04 AM [id number] Electronically Reviewed and Signed By: ANGEL DRAPER MD 01/04/22 14:18 Copy for: JES DELAROSA via fax Copy for: [facility] HEALTH INFORMATION MGMT DISCHARGED Social History Type Status Start Date End Date Code Code Syst em Smoking History Current every day smoker 938654030 SNOMED CT Sex Female Vital Signs Vital Sign Value Unit [place] Value [place] Unit Date/Time Recent/Initial? Code Code System Body Mass Index 38.08 kg/m2 01/03/2022 16:02 Initial 68270 -5 LOINC Systolic Blood Pressure 147 mm[Hg] 01/03/2022 17:52 Most Recent 8480- 6 LOINC Diastolic Blood Pressure 78 mm[Hg] 01/03/2022 17:52 Most Recent 8462- 4 LOINC Systolic Blood Pressure 138 mm[Hg] 01/03/2022 16:02 Initial 8480- 6 [facility] Diastolic Blood Pressure 69 mm[Hg] 01/03/2022 16:02 Initial 8462- 4 [facility] Body Surface Area 1.94 m2 01/03/2022 16:02 Initial 3140- 1 INC Height 152.400 0 cm 60.00 in 01/03/2022 16:02 Initial 8302- 2 INC O2 Saturation 99 % 2021 17:52 Most Recent 49709 -5 INC O2 Saturation 99 % 2021 16:02 Initial 38254 -5 INC Pulse 108.0 /min 01/03/2022 17:52 Most Recent 8867- 4 INC Pulse 101.0 /min 01/03/2022 16:02 Initial 8867- 4 LOINC Respiration 18 /min 01/04/20 17:52 Most Recent 9279- 1 LOINC Respiration 18 /min 01/04/20 16:02 Initial 9279- 1 INC Temperature 36.1 Jazmine 97.0 F 01/04/20 17:52 Most Recent 8310- 5 INC Temperature 36.0 Jazmine 96.8 F 01/04/20 16:02 Initial 8310- 5 [facility] Weight 88.45 kg 195.00 lbs 01/03/2022 16:02 Initial 56479 -7 [facility] Medications Medication Start Date End Date Route Frequency Dose Code Code System Medication Instructions Home Meds Zithromax 250MG Oral Tablet 04/17/2022 01/25/2023 ORAL DAILY 1 TABLET 935604 RxNorm TAKE 1 TABLET ORAL DAILY predniSONE 20MG Oral Tablet 04/17/2022 01/07/2023 ORAL DAILY 2 TABLET 986356 RxNorm TAKE 2 TABLET ORAL DAILY Percocet 5MG-325MG Oral Tablet 01/07/2023 06/23/2023 ORAL NEEDED EVERY 4 HOURS 1 TABLET 4476684 RxNorm TAKE 1 TABLET ORAL NEEDED EVERY 4 HOURS predniSONE 20MG Oral Tablet 01/07/2023 01/07/2023 ORAL DAILY 2 TABLET 903973 RxNorm TAKE 2 TABLET ORAL DAILY predniSONE 20MG Oral Tablet 01/07/2023 06/23/2023 ORAL DAILY 2 TABLET 638185 RxNorm TAKE 2 TABLET ORAL DAILY Vraylar 6MG Oral Capsule 06/23/2023 11/11/2023 ORAL DAILY 6 MILLIGRAMS 4680005 RxNorm TAKE 6 MILLIGRAM S ORAL DAILY LaMICtal 150MG Oral Tablet 06/23/2023 11/11/2023 ORAL DAILY 1 TABLET RxNorm TAKE 1 TABLET ORAL DAILY HumaLOG 100U/1ML Injection Solution 06/23/2023 Unknown INJECTIO N DAILY 1 unit(s) 250253 RxNorm 1 EACH INJECTION DAILY Ondansetron 4MG Oral Tablet 06/23/2023 01/31/2024 ORAL NEEDED EVERY 6 HOURS 4 MILLIGRAMS 104980 RxNorm TAKE 4 MILLIGRAM S ORAL NEEDED EVERY 6 HOURS SEROquel 100MG Oral Tablet 06/23/2023 11/11/2023 ORAL BEDTIME 150 MILLIGRAMS 970927 RxNorm TAKE 150 MILLIGRAM S ORAL BEDTIME Spironolacton e 100MG Oral Tablet 06/23/2023 Unknown ORAL DAILY 100 MILLIGRAMS 19810531 RxNorm TAKE 100 MILLIGRAM S ORAL DAILY Mounjaro 06/23/2023 Unknown ORAL WEEKLY 15 MILLIGRAMS RxNorm TAKE 15 MILLIGRAM S ORAL WEEKLY Assessment You had the following [...] Status Code Code System SLURRED SPEECH active 127825286 SNOME D-CT DIABETES 2 active 25697781 SNOMED-CT BIPOLAR DISORDER active 06455841 SNO MED-CT PTSD 09/19/2021 resolved 06448287 SNOMED-CT FIBROMYALGIA 09/19/2021 resolved 577704320 SNOMED -CT DIABETES 2 07/05/2021 resolved 37753901 SNOMED-C T FALL FROM STAIRS 06/23/2023 resolved 065392198 SN OMED-CT CLOSED FRACTURE OF RIGHT HUMERUS 06/23/2023 resolved 13978977198988449 SNOMED-CT HTN 09/19/2021 resolved 45436941 SNOMED-CT BIPOLAR DISORDER 09/19/2021 resolved 17947065 SN OMED-CT Allergies and Adverse Reactions Allergy Substance Reaction Severity Start Date Concern Status Co de Code System LISINOPRIL Active 77722 RxNorm AMBIEN Altered Mental Status (SNOMED-CT: 199424880) Active 269325 RxNorm Plan of Treatment Lab Draw 07/30/2020 Lab Draw 05/28/2020 US ABDOMEN LIMITED 1 ORGAN 05/06/2023 US RIGHT UPPER QUAD 07/05/2021 Encounters Encounter Diagnosis Start Date Code Code Sys tem COVID-19 01/03/2022 SNOMED-CT Personal Care Team Section Performer Name Performer Role Active Date Inactive Da te
--- OUTSIDE RECORDS SUMMARY | 2024-02-14 15:10 | XMS_ITS ---
Author Organization Unknown Address [address] [place] [address] [phone] Phone Care Team Providers Care Science Tutor Name Role Phone JO WILD Attending Unavailable JES DELAROSA Primary Unavailable Social History Type Status Start Date End Date Code Code Syst em Smoking History Current every day smoker 395268207 SNOMED CT Sex Female Medications Medication Start Date End Date Route Frequency Dose Code Code System Medication Instructions Home Meds Cyclobenzaprine 10MG Oral Tablet 12/14/2018 10/26/2021 ORAL THREE TIMES A DAY 10 MILLIGRAMS 171184 RxNorm TAKE 10 MILLIGRAMS ORAL THREE TIMES A DAY Ondansetron 4MG Oral Tablet, Disintegrating 07/05/2021 10/26/2021 ORAL NEEDED EVERY 6 HOURS 1 TABLET 722744 RxNorm TAKE 1 TABLET ORAL NEEDED EVERY 6 HOURS FOR Nausea/Vomi ting Phenergan 25MG Rectal Suppository 07/26/2021 10/26/2021 RECTA L DAILY 1 SUPPOSITORY 568647 RxNorm INSERT 1 SUPPOSITORY RECTAL DAILY HYDROcodone bitartrate-aceta minophen 5MG-325MG Oral Tablet 09/19/2021 10/26/2021 ORAL EVERY 6 HOURS 1 TABLET 604953 RxNorm TAKE 1 TABLET ORAL EVERY 6 HOURS Zithromax 250MG Oral Tablet 04/17/2022 01/25/2023 ORAL DAILY 1 TABLET 525890 RxNorm TAKE 1 TABLET ORAL DAILY predniSONE 20MG Oral Tablet 04/17/2022 01/07/2023 ORAL DAILY 2 TABLET 280192 RxNorm TAKE 2 TABLET ORAL DAILY predniSONE 20MG Oral Tablet 01/07/2023 06/23/2023 ORAL DAILY 2 TABLET 749529 RxNorm TAKE 2 TABLET ORAL DAILY Percocet 5MG-325MG Oral Tablet 01/07/2023 06/23/2023 ORAL NEEDED EVERY 4 HOURS 1 TABLET 1325525 RxNorm TAKE 1 TABLET ORAL NEEDED EVERY 4 HOURS predniSONE 20MG Oral Tablet 01/07/2023 01/07/2023 ORAL DAILY 2 TABLET 380459 RxNorm TAKE 2 TABLET ORAL DAILY SEROquel 100MG Oral Tablet 06/23/2023 11/11/2023 ORAL BEDTIM E 150 MILLIGRAMS 077567 RxNorm TAKE 150 MILLIGRAMS ORAL BEDTIME LaMICtal 150MG Oral Tablet 06/23/2023 11/11/2023 ORAL DAILY 1 TABLET RxNorm TAKE 1 TABLET ORAL DAILY Ondansetron 4MG Oral Tablet 06/23/2023 01/31/2024 ORAL NEEDED EVERY 6 HOURS 4 MILLIGRAMS 285454 RxNorm TAKE 4 MILLIGRAMS ORAL NEEDED EVERY 6 HOURS HumaLOG 100U/1ML Injection Solution 06/23/2023 Unknown INJEC TION DAILY 1 unit(s) 675978 RxNorm 1 EACH INJECTION DAILY Spironolactone 100MG Oral Tablet 06/23/2023 Unknown ORAL DAILY 100 MILLIGRAMS 19810531 RxNorm TAKE 100 MILLIGRAMS ORAL DAILY Vraylar 6MG Oral Capsule 06/23/2023 11/11/2023 ORAL DAILY 6 MILLIGRAMS 1785200 RxNorm TAKE 6 MILLIGRAMS ORAL DAILY Mounjaro [...] Status Code Code System SLURRED SPEECH active 087530825 SNOME D-CT DIABETES 2 active 95261894 SNOMED-CT BIPOLAR DISORDER active 54354466 SNO MED-CT PTSD 09/19/2021 resolved 43053708 SNOMED-CT FIBROMYALGIA 09/19/2021 resolved 515267081 SNOMED -CT DIABETES 2 07/05/2021 resolved 20829686 SNOMED-C T FALL FROM STAIRS 06/23/2023 resolved 310656815 SN OMED-CT CLOSED FRACTURE OF RIGHT HUMERUS 06/23/2023 resolved 98699207653532635 SNOMED-CT HTN 09/19/2021 resolved 86711269 SNOMED-CT BIPOLAR DISORDER 09/19/2021 resolved 57992277 SN OMED-CT Allergies and Adverse Reactions Allergy Substance Reaction Severity Start Date Concern Status Co de Code System LISINOPRIL Active 56153 RxNorm AMBIEN Altered Mental Status (SNOMED-CT: 394256508) Active 706262 RxNorm Plan of Treatment Lab Draw 07/30/2020 Lab Draw 05/28/2020 US ABDOMEN LIMITED 1 ORGAN 05/06/2023 US RIGHT UPPER QUAD 07/05/2021 Encounters Encounter Diagnosis Start Date Code Code Sys tem 09/26/2021 [id number] SNOMED-CT Personal Care Team Section Performer Name Performer Role Active Date Inactive Da te
--- OUTSIDE RECORDS SUMMARY | 2024-02-14 15:10 | XMS_ITS ---
Author Organization Unknown Address [address] [place] [address] [phone] Phone Care Team Providers Care Glass Cleaning Machine Tender Name Role Phone AVERY ANGE Registered Nurse Unavailable MARY Crawford Attending Unavailable ADELE [facility] Unavailable JES LUNDILY Primary Unavailable UNLISTED PROVIDER - REQUESTED Xhandoff Un available Results XR KNEE 4V LT* - Completed: 10/26/2021 19:01 LOINC: LEFT KNEE, 4 VIEWS: No priors. No acute fracture or dislocation is seen. There is tiny round density medial to the medial femoral condyle, which does not appear to be acute. The underlying bone is unremarkable. Soft tissues are unremarkable. IMPRESSION: No acute fracture or dislocation. Dictated by: TOÑO MATTHEWS MD Transcribed by: KARIS 10/27/2112:57 [id number] Electronically Reviewed and Signed By: ROYA MATTHEWS MD 10/27/21 14:33 Copy for: JES DELAROSA via fax Copy for: [facility] MGMT DISCHARGED XR TIBFIB 2V LT* - Completed : 10/26/2021 19:01 LOINC: LEFT LEG, 2 VIEWS: On the lateral view, a portion of the posterior fibula is not included. No acute fracture or dislocation is seen. The soft tissues are unremarkable. Dictated by: TOÑO MATTHEWS MD Transcribed by: KARIS 10/27/2112:59 [id number] Electronically Reviewed and Signed By: ROYA MATTHEWS MD 10/27/21 14:33 Copy for: JES DELAROSA via fax Copy for: 185 HEALTH INFORMATION MGMT DISCHARGED Social History Type Status Start Date End Date Code Code Syst em Smoking History Current every day smoker 427137221 SNOMED CT Sex Female Vital Signs Vital Sign Value Unit [place] Value [place] Unit Date/Time Recent/Initial? Code Code System Body Mass Index 37.11 kg/m2 10/26/2021 17:15 Initial 84812 -5 LOINC Systolic Blood Pressure 143 mm[Hg] 10/26/2021 18:58 Most Recent 8480- 6 LOINC Diastolic Blood Pressure 78 mm[Hg] 10/26/2021 18:58 Most Recent 8462- 4 LOINC Systolic Blood Pressure 154 mm[Hg] 10/26/2021 17:15 Initial 8480- 6 LOINC Diastolic Blood Pressure 80 mm[Hg] 10/26/2021 17:15 Initial 8462- 4 LOINC Body Surface Area 1.91 m2 10/26/2021 17:15 Initial 3140- 1 LOINC Height 152.400 0 cm 60.00 in 10/26/2021 17:15 Initial 8302- 2 INC O2 Saturation 98 % 2021 18:58 Most Recent 22692 -5 INC O2 Saturation 96 % 2021 17:15 Initial 77858 -5 INC Pulse 98.0 /min 10/26/2021 18:58 Most Recent 8867- 4 INC Pulse 110.0 /min 10/26/2021 17:15 Initial 8867- 4 LOINC Respiration 17 /min 10/27/19 22 18:58 Most Recent 9279- 1 LOINC Respiration 18 /min 10/27/19 22 17:15 Initial 9279- 1 INC Temperature 35.9 Jazmine 96.6 F 10/27/19 22 17:15 Initial 8310- 5 INC Weight 86.18 kg 190.00 lbs 10/26/2021 17:15 Initial 31847 -7 [facility] Medications Medication Start Date End Date Route Frequency Dose Code Code System Medication Instructions Home Meds Cyclobenzaprine 10MG Oral Tablet 12/14/2018 10/26/2021 ORAL THREE TIMES A DAY 10 MILLIGRAMS 523343 RxNorm TAKE 10 MILLIGRAMS ORAL THREE TIMES A DAY Ondansetron 4MG Oral Tablet, Disintegrating 07/05/2021 10/26/2021 ORAL NEEDED EVERY 6 HOURS 1 TABLET 799586 RxNorm TAKE 1 TABLET ORAL NEEDED EVERY 6 HOURS FOR Nausea/Vomi ting Phenergan 25MG Rectal Suppository 07/26/2021 10/26/2021 RECTA L DAILY 1 SUPPOSITORY 468791 RxNorm INSERT 1 SUPPOSITORY RECTAL DAILY HYDROcodone bitartrate-aceta minophen 5MG-325MG Oral Tablet 09/19/2021 10/26/2021 ORAL EVERY 6 HOURS 1 TABLET 907632 RxNorm TAKE 1 TABLET ORAL EVERY 6 HOURS Zithromax 250MG Oral Tablet 04/17/2022 01/25/2023 ORAL DAILY 1 TABLET 927035 RxNorm TAKE 1 TABLET ORAL DAILY predniSONE 20MG Oral Tablet 04/17/2022 01/07/2023 ORAL DAILY 2 TABLET 432892 RxNorm TAKE 2 TABLET ORAL DAILY predniSONE 20MG Oral Tablet 01/07/2023 06/23/2023 ORAL DAILY 2 TABLET 417161 RxNorm TAKE 2 TABLET ORAL DAILY Percocet 5MG-325MG Oral Tablet 01/07/2023 06/23/2023 ORAL NEEDED EVERY 4 HOURS 1 TABLET 3083971 RxNorm TAKE 1 TABLET ORAL NEEDED EVERY 4 HOURS predniSONE 20MG Oral Tablet 01/07/2023 01/07/2023 ORAL DAILY 2 TABLET 155099 RxNorm TAKE 2 TABLET ORAL DAILY SEROquel 100MG Oral Tablet 06/23/2023 11/11/2023 ORAL BEDTIM E 150 MILLIGRAMS 762684 RxNorm TAKE 150 MILLIGRAMS ORAL BEDTIME LaMICtal 150MG Oral Tablet 06/23/2023 11/11/2023 ORAL DAILY 1 TABLET RxNorm TAKE 1 TABLET ORAL DAILY Ondansetron 4MG Oral Tablet 06/23/2023 01/31/2024 ORAL NEEDED EVERY 6 HOURS 4 MILLIGRAMS 097455 RxNorm TAKE 4 MILLIGRAMS ORAL NEEDED EVERY 6 HOURS HumaLOG 100U/1ML Injection Solution 06/23/2023 Unknown INJEC TION DAILY 1 unit(s) 200720 RxNorm 1 EACH INJECTION DAILY Spironolactone 100MG Oral Tablet 06/23/2023 Unknown ORAL DAILY 100 MILLIGRAMS 628191 RxNorm TAKE 100 MILLIGRAMS ORAL DAILY Vraylar 6MG Oral Capsule 06/23/2023 11/11/2023 ORAL DAILY 6 MILLIGRAMS 0507993 RxNorm TAKE 6 MILLIGRAMS ORAL DAILY Mounjaro [...] physician. Reason For Referral No Data Found Procedures Procedure Name Date Status Code Code Syste m C section completed 20721768 SNOMEDCT Cholecystectomy completed 99809759 SNOMEDCT Tonsillectomy completed 288220725 SNOMEDCT Repair or plastic surgery on humerus completed 92904901 SNOMEDCT Problems Problem Start Date Resolved Date Status Code Code System SLURRED SPEECH active 972883817 SNOME D-CT DIABETES 2 active 08329510 SNOMED-CT BIPOLAR DISORDER active 53948602 SNO MED-CT PTSD 09/19/2021 resolved 14313573 SNOMED-CT FIBROMYALGIA 09/19/2021 resolved 040660605 SNOMED -CT DIABETES 2 07/05/2021 resolved 67049937 SNOMED-C T FALL FROM STAIRS 06/23/2023 resolved 041790695 SN OMED-CT CLOSED FRACTURE OF RIGHT HUMERUS 06/23/2023 resolved 13241621418170464 SNOMED-CT HTN 09/19/2021 resolved 95727641 SNOMED-CT BIPOLAR DISORDER 09/19/2021 resolved 55174665 SN OMED-CT Allergies and Adverse Reactions Allergy Substance Reaction Severity Start Date Concern Status Co de Code System LISINOPRIL Active 98863 RxNorm AMBIEN Altered Mental Status (SNOMED-CT: 272877280) Active 467450 RxNorm Plan of Treatment Lab Draw 07/30/2020 Lab Draw 05/28/2020 US ABDOMEN LIMITED 1 ORGAN 05/06/2023 US RIGHT UPPER QUAD 07/05/2021 Encounters Encounter Diagnosis Start Date Code Code Sys tem Strain of other muscle(s) an d tendon(s) at lower leg level, left leg, initial encounter 10/26/2021 SNOME D-CT Personal Care Team Section Performer Name Performer Role Active Date Inactive Da te
--- OUTSIDE RECORDS SUMMARY | 2024-02-14 15:10 | XMS_ITS ---
Author Organization Unknown Address [address] [place] [address] [phone] Phone Care Team Providers Care Merry Go Round Operator Name Role Phone GLENNA PALOMARES Registered Nurse Unavailable MADY Martinez Attending Unavailable JES DELAROSA Primary Unavailable UNLISTED PROVIDER - REQUESTED Xhandoff Un available Social History Type Status Start Date End Date Code Code Syst em Smoking History Current every day smoker 055188354 SNOMED CT Sex Female Vital Signs Vital Sign Value Unit [place] Value [place] Unit Date/Time Recent/Initial? Code Code System Body Mass Index 40.04 kg/m2 09/25/2021 16:35 Initial 65936 -5 [facility] Systolic Blood Pressure 138 mm[Hg] 09/25/2021 16:35 Initial 8480- 6 [facility] Diastolic Blood Pressure 72 mm[Hg] 09/25/2021 16:35 Initial 8462- 4 [facility] Body Surface Area 1.98 m2 09/25/2021 16:35 Initial 3140- 1 [facility] Height 152.400 0 cm 60.00 in 09/25/2021 16:35 Initial 8302- 2 [facility] O2 Saturation 96 % 2021 16:35 Initial 00149 -5 [facility] Pulse 92.0 /min 09/25/2021 16:35 Initial 8867- 4 [facility] Respiration 18 /min 09/26/19 16:35 Initial 9279- 1 [facility] Temperature 36.9 Jazmine 98.4 F 09/26/19 16:35 Initial 8310- 5 [facility] Weight 92.99 kg 205.00 lbs 09/25/2021 16:35 Initial 98566 -7 [facility] Medications Medication Start Date End Date Route Frequency Dose Code Code System Medication Instructions Home Meds Cyclobenzaprine 10MG Oral Tablet 12/14/2018 10/26/2021 ORAL THREE TIMES A DAY 10 MILLIGRAMS 408214 RxNorm TAKE 10 MILLIGRAMS ORAL THREE TIMES A DAY Ondansetron 4MG Oral Tablet, Disintegrating 07/05/2021 10/26/2021 ORAL NEEDED EVERY 6 HOURS 1 TABLET 950587 RxNorm TAKE 1 TABLET ORAL NEEDED EVERY 6 HOURS FOR Nausea/Vomi ting Phenergan 25MG Rectal Suppository 07/26/2021 10/26/2021 RECTA L DAILY 1 SUPPOSITORY 944289 RxNorm INSERT 1 SUPPOSITORY RECTAL DAILY HYDROcodone bitartrate-aceta minophen 5MG-325MG Oral Tablet 09/19/2021 10/26/2021 ORAL EVERY 6 HOURS 1 TABLET 889683 RxNorm TAKE 1 TABLET ORAL EVERY 6 HOURS Zithromax 250MG Oral Tablet 04/17/2022 01/25/2023 ORAL DAILY 1 TABLET 922559 RxNorm TAKE 1 TABLET ORAL DAILY predniSONE 20MG Oral Tablet 04/17/2022 01/07/2023 ORAL DAILY 2 TABLET 102371 RxNorm TAKE 2 TABLET ORAL DAILY predniSONE 20MG Oral Tablet 01/07/2023 06/23/2023 ORAL DAILY 2 TABLET 911701 RxNorm TAKE 2 TABLET ORAL DAILY Percocet 5MG-325MG Oral Tablet 01/07/2023 06/23/2023 ORAL NEEDED EVERY 4 HOURS 1 TABLET 0601968 RxNorm TAKE 1 TABLET ORAL NEEDED EVERY 4 HOURS predniSONE 20MG Oral Tablet 01/07/2023 01/07/2023 ORAL DAILY 2 TABLET 283673 RxNorm TAKE 2 TABLET ORAL DAILY SEROquel 100MG Oral Tablet 06/23/2023 11/11/2023 ORAL BEDTIM E 150 MILLIGRAMS 257895 RxNorm TAKE 150 MILLIGRAMS ORAL BEDTIME LaMICtal 150MG Oral Tablet 06/23/2023 11/11/2023 ORAL DAILY 1 TABLET RxNorm TAKE 1 TABLET ORAL DAILY Ondansetron 4MG Oral Tablet 06/23/2023 01/31/2024 ORAL NEEDED EVERY 6 HOURS 4 MILLIGRAMS 344361 RxNorm TAKE 4 MILLIGRAMS ORAL NEEDED EVERY 6 HOURS HumaLOG 100U/1ML Injection Solution 06/23/2023 Unknown INJEC TION DAILY 1 unit(s) 082437 RxNorm 1 EACH INJECTION DAILY Spironolactone 100MG Oral Tablet 06/23/2023 Unknown ORAL DAILY 100 MILLIGRAMS 903256 RxNorm TAKE 100 MILLIGRAMS ORAL DAILY Vraylar 6MG Oral Capsule 06/23/2023 11/11/2023 ORAL DAILY 6 MILLIGRAMS 0289842 RxNorm TAKE 6 MILLIGRAMS ORAL DAILY Kamiro 06/23/2023 Unknown ORAL WEEKLY 15 MILLIGRAMS RxNorm [...] Status Code Code System SLURRED SPEECH active 333733164 SNOME D-CT DIABETES 2 active 28612118 SNOMED-CT BIPOLAR DISORDER active 45795034 SNO MED-CT PTSD 09/19/2021 resolved 23779032 SNOMED-CT FIBROMYALGIA 09/19/2021 resolved 114076714 SNOMED -CT DIABETES 2 07/05/2021 resolved 57922409 SNOMED-C T FALL FROM STAIRS 06/23/2023 resolved 196455573 SN OMED-CT CLOSED FRACTURE OF RIGHT HUMERUS 06/23/2023 resolved 37849517575118383 SNOMED-CT HTN 09/19/2021 resolved 77522765 SNOMED-CT BIPOLAR DISORDER 09/19/2021 resolved 21850441 SN OMED-CT Allergies and Adverse Reactions Allergy Substance Reaction Severity Start Date Concern Status Co de Code System LISINOPRIL Active 09242 RxNorm AMBIEN Altered Mental Status (SNOMED-CT: 530296279) Active 590868 RxNorm Plan of Treatment Lab Draw 07/30/2020 Lab Draw 05/28/2020 US ABDOMEN LIMITED 1 ORGAN 05/06/2023 US RIGHT UPPER QUAD 07/05/2021 Encounters Encounter Diagnosis Start Date Code Code Sys tem Localized edema 09/25/2021 SNOMED-CT Personal Care Team Section Performer Name Performer Role Active Date Inactive Da te
--- OUTSIDE RECORDS SUMMARY | 2024-02-14 15:11 | XMS_ITS ---
Author Organization Unknown Address [address] [place] [address] [phone] Phone Care Team Providers Care Travertine Installer Name Role Phone TALA Davenport Attending Unavailable JES DELAROSA Primary Unavailable Social History Type Status Start Date End Date Code Code Syst em Smoking History Current every day smoker 178644635 SNOMED CT Sex Female Medications Medication Start Date End Date Route Frequency Dose Code Code System Medication Instructions Home Meds Zithromax 250MG Oral Tablet 04/17/2022 01/25/2023 ORAL DAILY 1 TABLET 873656 RxNorm TAKE 1 TABLET ORAL DAILY predniSONE 20MG Oral Tablet 04/17/2022 01/07/2023 ORAL DAILY 2 TABLET 277532 RxNorm TAKE 2 TABLET ORAL DAILY Percocet 5MG-325MG Oral Tablet 01/07/2023 06/23/2023 ORAL NEEDED EVERY 4 HOURS 1 TABLET 2533339 RxNorm TAKE 1 TABLET ORAL NEEDED EVERY 4 HOURS predniSONE 20MG Oral Tablet 01/07/2023 01/07/2023 ORAL DAILY 2 TABLET 175337 RxNorm TAKE 2 TABLET ORAL DAILY predniSONE 20MG Oral Tablet 01/07/2023 06/23/2023 ORAL DAILY 2 TABLET 883427 RxNorm TAKE 2 TABLET ORAL DAILY Vraylar 6MG Oral Capsule 06/23/2023 11/11/2023 ORAL DAILY 6 MILLIGRAMS 5354941 RxNorm TAKE 6 MILLIGRAM S ORAL DAILY LaMICtal 150MG Oral Tablet 06/23/2023 11/11/2023 ORAL DAILY 1 TABLET RxNorm TAKE 1 TABLET ORAL DAILY HumaLOG 100U/1ML Injection Solution 06/23/2023 Unknown INJECTIO N DAILY 1 unit(s) 490712 RxNorm 1 EACH INJECTION DAILY Ondansetron 4MG Oral Tablet 06/23/2023 01/31/2024 ORAL NEEDED EVERY 6 HOURS 4 MILLIGRAMS 236059 RxNorm TAKE 4 MILLIGRAM S ORAL NEEDED EVERY 6 HOURS SEROquel 100MG Oral Tablet 06/23/2023 11/11/2023 ORAL BEDTIME 150 MILLIGRAMS 438998 RxNorm TAKE 150 MILLIGRAM S ORAL BEDTIME Spironolacton e 100MG Oral Tablet 06/23/2023 Unknown ORAL DAILY 100 MILLIGRAMS 123270 RxNorm TAKE 100 MILLIGRAM S ORAL DAILY [...] Status Code Code System SLURRED SPEECH active 505855776 SNOME D-CT DIABETES 2 active 34323953 SNOMED-CT BIPOLAR DISORDER active 32074132 SNO MED-CT PTSD 09/19/2021 resolved 62989415 SNOMED-CT FIBROMYALGIA 09/19/2021 resolved 231307830 SNOMED -CT DIABETES 2 07/05/2021 resolved 68011894 SNOMED-C T FALL FROM STAIRS 06/23/2023 resolved 615694747 SN OMED-CT CLOSED FRACTURE OF RIGHT HUMERUS 06/23/2023 resolved 02809554549562966 SNOMED-CT HTN 09/19/2021 resolved 44180512 SNOMED-CT BIPOLAR DISORDER 09/19/2021 resolved 37094949 SN OMED-CT Allergies and Adverse Reactions Allergy Substance Reaction Severity Start Date Concern Status Co de Code System LISINOPRIL Active 03597 RxNorm AMBIEN Altered Mental Status (SNOMED-CT: 201444551) Active 078575 RxNorm Plan of Treatment Lab Draw 07/30/2020 Lab Draw 05/28/2020 US ABDOMEN LIMITED 1 ORGAN 05/06/2023 US RIGHT UPPER QUAD 07/05/2021 Encounters Encounter Diagnosis Start Date Code Code Sys tem 02/15/2022 [id number] SNOMED-CT Personal Care Team Section Performer Name Performer Role Active Date Inactive Da te
--- OUTSIDE RECORDS SUMMARY | 2024-02-14 15:11 | XMS_ITS ---
Author Organization Unknown Address [address] [place] [address] [phone] Phone Care Team Providers Care Registered Safety Engineer Name Role Phone NIKOLAI Martinez Attending Unavailable JES DELAROSA Primary Unavailable Social History Type Status Start Date End Date Code Code Syst em Smoking History Current every day smoker 816082885 SNOMED CT Sex Female Medications Medication Start Date End Date Route Frequency Dose Code Code System Medication Instructions Home Meds Zithromax 250MG Oral Tablet 04/17/2022 01/25/2023 ORAL DAILY 1 TABLET 941174 RxNorm TAKE 1 TABLET ORAL DAILY predniSONE 20MG Oral Tablet 04/17/2022 01/07/2023 ORAL DAILY 2 TABLET 766174 RxNorm TAKE 2 TABLET ORAL DAILY Percocet 5MG-325MG Oral Tablet 01/07/2023 06/23/2023 ORAL NEEDED EVERY 4 HOURS 1 TABLET 5123027 RxNorm TAKE 1 TABLET ORAL NEEDED EVERY 4 HOURS predniSONE 20MG Oral Tablet 01/07/2023 01/07/2023 ORAL DAILY 2 TABLET 123913 RxNorm TAKE 2 TABLET ORAL DAILY predniSONE 20MG Oral Tablet 01/07/2023 06/23/2023 ORAL DAILY 2 TABLET 714139 RxNorm TAKE 2 TABLET ORAL DAILY Vraylar 6MG Oral Capsule 06/23/2023 11/11/2023 ORAL DAILY 6 MILLIGRAMS 0344933 RxNorm TAKE 6 MILLIGRAM S ORAL DAILY LaMICtal 150MG Oral Tablet 06/23/2023 11/11/2023 ORAL DAILY 1 TABLET RxNorm TAKE 1 TABLET ORAL DAILY HumaLOG 100U/1ML Injection Solution 06/23/2023 Unknown INJECTIO N DAILY 1 unit(s) 606568 RxNorm 1 EACH INJECTION DAILY Ondansetron 4MG Oral Tablet 06/23/2023 01/31/2024 ORAL NEEDED EVERY 6 HOURS 4 MILLIGRAMS 977934 RxNorm TAKE 4 MILLIGRAM S ORAL NEEDED EVERY 6 HOURS SEROquel 100MG Oral Tablet 06/23/2023 11/11/2023 ORAL BEDTIME 150 MILLIGRAMS 609406 RxNorm TAKE 150 MILLIGRAM S ORAL BEDTIME Spironolacton e 100MG Oral Tablet 06/23/2023 Unknown ORAL DAILY 100 MILLIGRAMS 950972 RxNorm TAKE 100 MILLIGRAM S ORAL DAILY [...] Status Code Code System SLURRED SPEECH active 092027095 SNOME D-CT DIABETES 2 active 37870591 SNOMED-CT BIPOLAR DISORDER active 63606315 SNO MED-CT PTSD 09/19/2021 resolved 20071604 SNOMED-CT FIBROMYALGIA 09/19/2021 resolved 931378251 SNOMED -CT DIABETES 2 07/05/2021 resolved 95235039 SNOMED-C T FALL FROM STAIRS 06/23/2023 resolved 960938736 SN OMED-CT CLOSED FRACTURE OF RIGHT HUMERUS 06/23/2023 resolved 27403885314794972 SNOMED-CT HTN 09/19/2021 resolved 26767689 SNOMED-CT BIPOLAR DISORDER 09/19/2021 resolved 01075938 SN OMED-CT Allergies and Adverse Reactions Allergy Substance Reaction Severity Start Date Concern Status Co de Code System LISINOPRIL Active 17643 RxNorm AMBIEN Altered Mental Status (SNOMED-CT: 547192692) Active 671362 RxNorm Plan of Treatment Lab Draw 07/30/2020 Lab Draw 05/28/2020 US ABDOMEN LIMITED 1 ORGAN 05/06/2023 US RIGHT UPPER QUAD 07/05/2021 Encounters Encounter Diagnosis Start Date Code Code Sys tem Tachycardia 03/12/2022 9651224 SNOMED-CT Personal Care Team Section Performer Name Performer Role Active Date Inactive Da te
--- OUTSIDE RECORDS SUMMARY | 2024-02-14 15:11 | XMS_ITS ---
Author Organization Unknown Address [address] [place] [address] [phone] Phone Care Team Providers Care Ring Rolling Machine Operator Name Role Phone MARIE JORGE Registered Nurse Unavailable MONICA Anthony Attending Unavailable JES DELAROSA Primary Unavailable UNLISTED PROVIDER - REQUESTED Xhandoff Un available Results XR CHEST PORTABLE OR 1V - Co mpleted: 04/17/2022 07:26 LOINC: [place], [place] [address] PACS TIE LOADER REPORT Patient Name: HILDA CROWLEY MRN: Sex: : Age: [id number] F [id number] 46 Account: Accession: Admit: StayType: [id number] 04/17/2022 E/R Ordered: Order ID: Submitted: Ordering Provider: 04/17/2022 07:21 [id number] JOSSE SUÁREZ Completed: Technologist: Resulted: 04/17/2022 07:26 KMD 04/17/2022 08:31 Study Description: XR CHEST PORTABLE OR 1V Study Reason: Cough TECHNIQUE: 1 Views COMPARISON: 03 January 2022 FINDINGS: Exam is limited by underpenetration lower lung loera. LUNGS: Grossly clear. PLEURA: No pleural abnormality seen. HEART: Normal. MEDIASTINUM: Normal. BONES: Unremarkable. SOFT TISSUES: Unremarkable. IMPRESSION: No acute findings. Report Digitally Signed by Noelle Cancino on 04/17/2022 08:31 AM EST Social History Type Status Start Date End Date Code Code Syst em Smoking History Current every day smoker 250257449 SNOMED CT Sex Female Vital Signs Vital Sign Value Unit [place] Value [place] Unit Date/Time Recent/Initial? Code Code System Body Mass Index 39.06 kg/m2 04/17/2022 07:18 Initial 39797 -5 LOINC Systolic Blood Pressure 175 mm[Hg] 04/17/2022 07:58 Most Recent 8480- 6 LOINC Diastolic Blood Pressure 104 mm[Hg] 04/17/2022 07:58 Most Recent 8462- 4 LOINC Systolic Blood Pressure 148 mm[Hg] 04/17/2022 07:18 Initial 8480- 6 LOINC Diastolic Blood Pressure 89 mm[Hg] 04/17/2022 07:18 Initial 8462- 4 LOINC Body Surface Area 1.96 m2 04/17/2022 07:18 Initial 3140- 1 LOINC Height 152.400 0 cm 60.00 in 04/17/2022 07:18 Initial 8302- 2 LOINC O2 Saturation 98 % 2021 07:58 Most Recent 74804 -5 LOINC O2 Saturation 97 % 2021 07:18 Initial 45507 -5 LOINC Pulse 120.0 /min 04/17/2022 07:58 Most Recent 8867- 4 LOINC Pulse 112.0 /min 04/17/2022 07:18 Initial 8867- 4 LOINC Respiration 16 /min 04/17/20 07:58 Most Recent 9279- 1 LOINC Respiration 20 /min 04/17/20 07:18 Initial 9279- 1 LOINC Temperature 36.2 Jazmine 97.2 F 04/17/20 07:18 Initial 8310- 5 LOINC Weight 90.72 kg 200.00 lbs 04/17/2022 07:18 Initial 07782 -7 LOINC Medications Medication Start Date End Date Route Frequency Dose Code Code System Medication Instructions Home Meds Zithromax 250MG Oral Tablet 04/17/2022 01/25/2023 ORAL DAILY 1 TABLET 479237 RxNorm TAKE 1 TABLET ORAL DAILY predniSONE 20MG Oral Tablet 04/17/2022 01/07/2023 ORAL DAILY 2 TABLET 119910 RxNorm TAKE 2 TABLET ORAL DAILY Percocet 5MG-325MG Oral Tablet 01/07/2023 06/23/2023 ORAL NEEDED EVERY 4 HOURS 1 TABLET 6176161 RxNorm TAKE 1 TABLET ORAL NEEDED EVERY 4 HOURS predniSONE 20MG Oral Tablet 01/07/2023 01/07/2023 ORAL DAILY 2 TABLET 432613 RxNorm TAKE 2 TABLET ORAL DAILY predniSONE 20MG Oral Tablet 01/07/2023 06/23/2023 ORAL DAILY 2 TABLET 654171 RxNorm TAKE 2 TABLET ORAL DAILY Vraylar 6MG Oral Capsule 06/23/2023 11/11/2023 ORAL DAILY 6 MILLIGRAMS 6780211 RxNorm TAKE 6 MILLIGRAM S ORAL DAILY LaMICtal 150MG Oral Tablet 06/23/2023 11/11/2023 ORAL DAILY 1 TABLET RxNorm TAKE 1 TABLET ORAL DAILY HumaLOG 100U/1ML Injection Solution 06/23/2023 Unknown INJECTIO N DAILY 1 unit(s) 875604 RxNorm 1 EACH INJECTION DAILY Ondansetron 4MG Oral Tablet 06/23/2023 01/31/2024 ORAL NEEDED EVERY 6 HOURS 4 MILLIGRAMS 082939 RxNorm TAKE 4 MILLIGRAM S ORAL NEEDED EVERY 6 HOURS SEROquel 100MG Oral Tablet 06/23/2023 11/11/2023 ORAL BEDTIME 150 MILLIGRAMS 051019 RxNorm TAKE 150 MILLIGRAM S ORAL BEDTIME [...] Status Code Code System SLURRED SPEECH active 839372610 SNOME D-CT DIABETES 2 active 34124269 SNOMED-CT BIPOLAR DISORDER active 57441174 SNO MED-CT PTSD 09/19/2021 resolved 73684859 SNOMED-CT FIBROMYALGIA 09/19/2021 resolved 115645281 SNOMED -CT DIABETES 2 07/05/2021 resolved 31543332 SNOMED-C T FALL FROM STAIRS 06/23/2023 resolved 285491710 SN OMED-CT CLOSED FRACTURE OF RIGHT HUMERUS 06/23/2023 resolved 34496278913801701 SNOMED-CT HTN 09/19/2021 resolved 71814413 SNOMED-CT BIPOLAR DISORDER 09/19/2021 resolved 46016632 SN OMED-CT Allergies and Adverse Reactions Allergy Substance Reaction Severity Start Date Concern Status Co de Code System LISINOPRIL Active 36465 RxNorm AMBIEN Altered Mental Status (SNOMED-CT: 401614705) Active 872076 RxNorm Plan of Treatment Lab Draw 07/30/2020 Lab Draw 05/28/2020 US ABDOMEN LIMITED 1 ORGAN 05/06/2023 US RIGHT UPPER QUAD 07/05/2021 Encounters Encounter Diagnosis Start Date Code Code Sys tem Unspecified fracture of shaf t of humerus, right arm, initial encounter for closed fracture 04/17/2022 SN OMED-CT Personal Care Team Section Performer Name Performer Role Active Date Inactive Da te
--- OUTSIDE RECORDS SUMMARY | 2024-02-14 15:12 | XMS_ITS ---
Author Organization Unknown Address [address] [place] [phone] Phone Care Team Providers Care Judicial Assistant Name Role Phone HENOK Crawford Attending Unavailable YELITZA RAJPUT Primary Unavailable Results D-DIMER - Collect Date/Time: 11/13/2022 16:05 [facility] ID: [id number] [address] [place] [address], [address] LOINC: 83772-7 Test Value Unit Reference Range Code Code System Flag D-DIMER 0.26 mg/L L=0.19 H=0.50 16480-6 LOINC XR CHEST 2V PA AND LATERAL - Completed: 11/13/2022 16:12 LOINC: [facility] RADI[facility] [place], [place] [address] PACS SHRINK PIT OPERATOR REPORT Patient Name: HILDA CROWLEY MRN: Sex: : Age: [id number] F 1975 47 Account: Accession: Admit: StayType: [id number] 11/13/2022 O/P Ordered: Order ID: Submitted: Ordering Provider: 11/13/2022 15:59 [id number] MARIE NAJERA Completed: Technologist: Resulted: 11/13/2022 16:12 KXR 11/13/2022 16:13 Study Description: XR CHEST 2V PA AND LATERAL Study Reason: COUGH TECHNIQUE: 2D Digital imaging Number of views: 2 Views COMPARISON: 27 November 2019 FINDINGS: LUNGS: Clear. PLEURA: No pleural abnormality seen. HEART: Normal size. AORTA: Normal diameter. BONES: Unremarkable for age. SOFT TISSUES: Unremarkable. IMPRESSION: No acute findings. Report Digitally Signed by Noelle Cancino on 11/13/2022 04:13 PM EDT Social History Type Status Start Date End Date Code Code Syst em Smoking History Current every day smoker 040847538 SNOMED CT Sex Female Medications Medication Start Date End Date Route Frequency Dose Code Code System Medication Instructions Home Meds Zithromax 250MG Oral Tablet 04/17/2022 01/25/2023 ORAL DAILY 1 TABLET 466137 RxNorm TAKE 1 TABLET ORAL DAILY predniSONE 20MG Oral Tablet 04/17/2022 01/07/2023 ORAL DAILY 2 TABLET 263198 RxNorm TAKE 2 TABLET ORAL DAILY Percocet 5MG-325MG Oral Tablet 01/07/2023 06/23/2023 ORAL NEEDED EVERY 4 HOURS 1 TABLET 4020916 RxNorm TAKE 1 TABLET ORAL NEEDED EVERY 4 HOURS predniSONE 20MG Oral Tablet 01/07/2023 01/07/2023 ORAL DAILY 2 TABLET 281666 RxNorm TAKE 2 TABLET ORAL DAILY predniSONE 20MG Oral Tablet 01/07/2023 06/23/2023 ORAL DAILY 2 TABLET 474935 RxNorm TAKE 2 TABLET ORAL DAILY Vraylar 6MG Oral Capsule 06/23/2023 11/11/2023 ORAL DAILY 6 MILLIGRAMS 2692754 RxNorm TAKE 6 MILLIGRAM S ORAL DAILY LaMICtal 150MG Oral Tablet 06/23/2023 11/11/2023 ORAL DAILY 1 TABLET RxNorm TAKE 1 TABLET ORAL DAILY HumaLOG 100U/1ML Injection Solution 06/23/2023 Unknown INJECTIO N DAILY 1 unit(s) 863768 RxNorm 1 EACH INJECTION DAILY Ondansetron 4MG Oral Tablet 06/23/2023 01/31/2024 ORAL NEEDED EVERY 6 HOURS 4 MILLIGRAMS 048935 RxNorm TAKE 4 MILLIGRAM S ORAL NEEDED EVERY 6 HOURS SEROquel 100MG Oral Tablet 06/23/2023 11/11/2023 ORAL BEDTIME 150 MILLIGRAMS 363580 RxNorm TAKE 150 MILLIGRAM S ORAL BEDTIME Spironolacton e 100MG Oral Tablet 06/23/2023 Unknown ORAL DAILY 100 MILLIGRAMS 568649 RxNorm TAKE 100 MILLIGRAM S ORAL DAILY [...] Status Code Code System SLURRED SPEECH active 539124717 SNOME D-CT DIABETES 2 active 19019745 SNOMED-CT BIPOLAR DISORDER active 64156191 SNO MED-CT PTSD 09/19/2021 resolved 89748678 SNOMED-CT FIBROMYALGIA 09/19/2021 resolved 293021950 SNOMED -CT DIABETES 2 07/05/2021 resolved 18928168 SNOMED-C T FALL FROM STAIRS 06/23/2023 resolved 330212519 SN OMED-CT CLOSED FRACTURE OF RIGHT HUMERUS 06/23/2023 resolved 15255364135545305 SNOMED-CT HTN 09/19/2021 resolved 08530056 SNOMED-CT BIPOLAR DISORDER 09/19/2021 resolved 15889175 SN OMED-CT Allergies and Adverse Reactions Allergy Substance Reaction Severity Start Date Concern Status Co de Code System LISINOPRIL Active 98643 RxNorm AMBIEN Altered Mental Status (SNOMED-CT: 916464002) Active 827711 RxNorm Plan of Treatment Lab Draw 07/30/2020 Lab Draw 05/28/2020 US ABDOMEN LIMITED 1 ORGAN 05/06/2023 US RIGHT UPPER QUAD 07/05/2021 Encounters Encounter Diagnosis Start Date Code Code Sys tem Acute cough 11/13/2022 SNOMED-CT Personal Care Team Section Performer Name Performer Role Active Date Inactive Da te
--- OUTSIDE RECORDS SUMMARY | 2024-02-14 15:12 | XMS_ITS ---
Author Organization Unknown Address [address] [place] [address] [phone] Phone Care Team Providers Care Vice President [employer] Name Role Phone OPAL MENSAH Registered Nurse Unavailable PANCHITO PETTIT Attending Unavailable BEBE QUESADA Unavailable YELITZA ATIYA Primary Unavailable UNLISTED PROVIDER - REQUESTED Xhandoff Un available Results LACTIC ACID - Collect Date/T eber: 11/30/2022 21:20 [facility] ID: [id number] [address] [place] [address], [address] LOINC: Test Value Unit Reference Range Code Code System Flag LACTIC ACID 1.8 mmol/L L=0.7 H=2.1 16988-9 LOINC COMPREHENSIVE METABOLIC PANE L (CMP) - Collect Date/Time: 11/30/2022 21:20 [facility] ID: [id number] [address] [place] [address], [address] LOINC: 60610-2 Test Value Unit Reference Range Code Code System Flag GLUCOSE 130 mg/dL L=70 H=116 2345-7 LOINC H BUN 6 mg/dL L=6 H=25 3094-0 LOINC CREATININE 0.72 mg/dL L=0.51 H=0.95 2160-0 LOINC SODIUM SERUM 137 mmol/L L=136 H=145 2951-2 LOINC POTASSIUM SERUM 3.6 mmol/L L=3.4 H=5.2 2823-3 LOINC CHLORIDE SERUM 99 mmol/L L=96 H=110 2075-0 LOINC CARBON DIOXIDE (CO2) 26 mmol/L L=22 H=34 2028-9 LOINC ANION GAP 12.2 mmol/L 20230-7 LOINC CALCIUM SERUM 9.8 mg/dL L=8.2 H=10.2 27266-7 LOINC BILIRUBIN TOTAL 0.9 mg/dL L=0.0 H=1.3 1975-2 LOINC ALK. PHOS. 100 U/L L=46 H=116 6768-6 LOINC SGOT (AST) 22 U/L L=15 H=37 1920-8 LOINC SGPT (ALT) 32 U/L L=12 H=78 1742-6 LOINC TOTAL PROTEIN 8.0 gm/dL L=6.0 H=8.0 2885-2 LOINC ALBUMIN 3.9 gm/dL L=3.4 H=5.0 1751-7 LOINC AGE 47 years eGFR (non-Afr.Amer.) 88 mL/min 76813-5 LOINC eGFR (Afr-[place]ican) 106 mL/min 69681-4 LOINC CBC W/ DIFFERENTIAL* - Colle ct Date/Time: 11/30/2022 21:20 [facility] ID: [id number] [address] [place] [address], [address] LOINC: 40431-2 Test Value Unit Reference Range Code Code System Flag WBC 14.68 th/cmm L=5.00 H=10.00 6690-2 LOINC H NEUT % 56.1 % L=40.0 H=80.0 LYMPH % 35.5 % L=10.0 H=50.0 MONO % 6.5 % L=2.0 H=12.0 06427-0 LOINC EOS % 0.7 % L=0.0 H=8.0 BASO % 0.5 % L=0.0 H=3.0 IG % 0.7 % L=0.0 H=1.1 2514-8 LOINC NRBC % 0.0 % L=0.0 H=0.0 79838-6 LOINC NEUT abs count 8.2 th/cmm L=1.6 H=8.4 751-8 LOINC LYMPH abs count 5.2 th/cmm L=1.5 H=4.0 731-0 LOINC H MONO abs count 1.0 th/cmm L=0.2 H=1.0 742-7 LOINC EOS abs count 0.1 th/cmm L=0.0 H=0.5 711-2 LOINC BASO abs count 0.1 th/cmm L=0.0 H=0.2 704-7 LOINC IG abs count 0.1 th/cmm L=0.0 H=0.1 79153-7 LOINC NRBC abs count 0.0 mil/cmm L=0.0 H=0.0 33347-4 LOINC RBC 5.20 mil/cmm L=3.90 H=5.40 789-8 LOINC HEMOGLOBIN 16.4 gm/dL L=12.0 H=16.0 718-7 LOINC H HEMATOCRIT 46 % L=37 H=47 4544-3 LOINC MCV 89 fL L=82 H=92 787-2 LOINC MCH 31.5 pg L=27.0 H=31.0 785-6 LOINC H MCHC 35.5 % L=32.0 H=36.0 786-4 LOINC RDW-SD 38.2 fL L=39.0 H=49.0 788-0 LOINC L PLATELET COUNT 323 th/cmm L=150 H=450 777-3 LOINC Atyp lymphs 2+ TEST QUAL (URINE) - Collect Date/Time: 11/30/2022 20:00 [facility] ID: [id number] [address] [place] [address], [address] LOINC: 6-3 Test Value Unit Reference Range Code Code System Flag TEST NEGATIVE 2105-3 LOINC URINALYSIS WITH REFLEX CULT IF POSITIVE* - Collect Date/Time: 11/30/2022 20:00 [facility] ID: [id number] [address] [place] [address], [address] LOINC: 61654-3 Test Value Unit Reference Range Code Code System Flag COLLECTION MODE: CLEAN CATCH 24387-1 LOINC Color STRAW yellow 5778-6 LOINC Appearance CLEAR clear 5767-9 LOINC Glucose urine NEGATIVE negative mg/dl 69592-1 LOINC Bilirubin NEGATIVE negative 5770-3 LOINC Ketones NEGATIVE negative mg/dl 2514-8 LOINC Spec gravity <=1.005 1.003 - 1.030 5811-5 LOINC pH urine 7.0 5.0 - 7.0 2756-5 LOINC Protein NEGATIVE negative mg/dl 43452-0 LOINC Urobilinogen 0.2 <or= 1 EU/dl 08343-9 LOINC Nitrite. NEGATIVE negative 5802-4 LOINC Blood NEGATIVE negative 5794-3 LOINC Leukocytes. NEGATIVE negative MICROSCOPIC NOT INDICAT CT ABD PELVIS W IV CONTRAST ONLY - Completed: 12/01/2022 07:04 LOINC: [facility] RADIOLOGY [place], [place] [address] PACS MOBILE LOUNGE DRIVER OR OPERATOR REPORT Patient Name: HILDA CROWLEY MRN: Sex: : Age: [id number] F 1975 47 Account: Accession: Admit: StayType: [id number] 11/30/2022 E/R Ordered: Order ID: Submitted: Ordering Provider: 11/30/2022 21:35 [id number] KRISSY OLIVER Completed: Technologist: Resulted: 12/01/2022 07:04 [facility] 12/02/2022 15:36 Study Description: CT ABD PELVIS W IV CONTRAST ONLY Reason for Study: Abdominal Pain Imaging Protocol: Axial computed tomography images with coronal and sagittal reformatted images were created and reviewed. Contrast Material: Intravenous: Omnipaque 350 Contrast volume: 100 mL Comparison: 19 Sep 2021 FINDINGS: Lung Bases: Normal where visualized. Liver: Mild hepatic steatosis. No suspicious measurable mass. Gallbladder and Biliary Tract: Status post cholecystectomy. No biliary dilation. Pancreas: Normal density, no abnormal calcifications or inflammatory process. Spleen: Normal. Adrenals: No masses seen. Kidneys: Normal size, contour and axis. No radiodense stones. No obstructive uropathy. No suspicious masses seen. Abdominal Aorta: Abdominal portion non-dilated. Bowel: No obstruction. Colon contains a small amount of mostly fluid throughout. No abnormal dilatation. Questionable minimal wall thickening which could indicate colitis.. Appendix is unremarkable. Peritoneal Cavity: No ascites or focal collection. No mesenteric inflammatory response. No free air. Lymph Nodes: Scattered tiny mesenteric lymph nodes could be reactive secondary to inflammatory changes. Bones: Unremarkable for the patient's age. Soft Tissues: Fat-containing hernias anteriorly in the pelvis. Bladder: Symmetric distention. No gross wall thickening. Reproductive Organs: Unremarkable as visualized. IMPRESSION: Question of mild colitis. Radiation Optimization: All CT scans at this facility use at least one of these dose optimization techniques: automated exposure control; mA and/or kV adjustment per patient size (includes targeted exams where dose is matched to clinical indication); or iterative reconstruction. Report Digitally Signed by Noelle Cancino on 12/02/2022 03:36 PM EDT Social History Type Status Start Date End Date Code Code Syst em Smoking History Current every day smoker 636806365 SNOMED CT Sex Female Vital Signs Vital Sign Value Unit Dillon Value Dillon Unit Date/Time Recent/Initial? Code Code System Body Mass Index 37.30 kg/m2 11/30/2022 18:46 Initial 87251 -5 LOINC Systolic Blood Pressure 124 mm[Hg] 12/01/2022 00:13 Most Recent 8480- 6 LOINC Diastolic Blood Pressure 75 mm[Hg] 12/01/2022 00:13 Most Recent 8462- 4 LOINC Systolic Blood Pressure 137 mm[Hg] 11/30/2022 18:46 Initial 8480- 6 LOINC Diastolic Blood Pressure 97 mm[Hg] 11/30/2022 18:46 Initial 8462- 4 LOINC Body Surface Area 1.92 m2 11/30/2022 18:46 Initial 3140- 1 LOINC Height 152.400 0 cm 60.00 in 11/30/2022 18:46 Initial 8302- 2 LOINC O2 Saturation 96 % 2022 00:13 Most Recent 21344 -5 LOINC O2 Saturation 96 % 2022 18:46 Initial 52919 -5 LOINC Pulse 98.0 /min 12/01/2022 00:13 Most Recent 8867- 4 LOINC Pulse 113.0 /min 11/30/2022 18:46 Initial 8867- 4 LOINC Respiration 18 /min 12/02/19 00:13 Most Recent 9279- 1 LOINC Respiration 18 /min 12/01/19 18:46 Initial 9279- 1 LOINC Temperature 37.2 Jazmine 99.0 F 12/01/19 18:46 Initial 8310- 5 LOINC Weight 86.64 kg 191.00 lbs 11/30/2022 18:46 Initial 99305 -7 [facility] Medications Medication Start Date End Date Route Frequency Dose Code Code System Medication Instructions Home Meds Zithromax 250MG Oral Tablet 04/17/2022 01/25/2023 ORAL DAILY 1 TABLET 309136 RxNorm TAKE 1 TABLET ORAL DAILY predniSONE 20MG Oral Tablet 04/17/2022 01/07/2023 ORAL DAILY 2 TABLET 823472 RxNorm TAKE 2 TABLET ORAL DAILY Percocet 5MG-325MG Oral Tablet 01/07/2023 06/23/2023 ORAL NEEDED EVERY 4 HOURS 1 TABLET 2044617 RxNorm TAKE 1 TABLET ORAL NEEDED EVERY 4 HOURS predniSONE 20MG Oral Tablet 01/07/2023 01/07/2023 ORAL DAILY 2 TABLET 895964 RxNorm TAKE 2 TABLET ORAL DAILY predniSONE 20MG Oral Tablet 01/07/2023 06/23/2023 ORAL DAILY 2 TABLET 758034 RxNorm TAKE 2 TABLET ORAL DAILY Vraylar 6MG Oral Capsule 06/23/2023 11/11/2023 ORAL DAILY 6 MILLIGRAMS 5439349 RxNorm TAKE 6 MILLIGRAM S ORAL DAILY LaMICtal 150MG Oral Tablet 06/23/2023 11/11/2023 ORAL DAILY 1 TABLET RxNorm TAKE 1 TABLET ORAL DAILY HumaLOG 100U/1ML Injection Solution 06/23/2023 Unknown INJECTIO N DAILY 1 unit(s) 022579 RxNorm 1 EACH INJECTION DAILY Ondansetron 4MG Oral Tablet 06/23/2023 01/31/2024 ORAL NEEDED EVERY 6 HOURS 4 MILLIGRAMS 904275 RxNorm TAKE 4 MILLIGRAM S ORAL NEEDED EVERY 6 HOURS SEROquel 100MG Oral Tablet 06/23/2023 11/11/2023 ORAL BEDTIME 150 MILLIGRAMS 813325 RxNorm TAKE 150 MILLIGRAM S ORAL BEDTIME Spironolacton e 100MG Oral Tablet 06/23/2023 Unknown ORAL DAILY 100 MILLIGRAMS 627887 RxNorm TAKE 100 MILLIGRAM S ORAL DAILY [...] Status Code Code System SLURRED SPEECH active 490297658 SNOME D-CT DIABETES 2 active 55669223 SNOMED-CT BIPOLAR DISORDER active 62415769 SNO MED-CT PTSD 09/19/2021 resolved 05968664 SNOMED-CT FIBROMYALGIA 09/19/2021 resolved 741625076 SNOMED -CT DIABETES 2 07/05/2021 resolved 87518573 SNOMED-C T FALL FROM STAIRS 06/23/2023 resolved 380179701 SN OMED-CT CLOSED FRACTURE OF RIGHT HUMERUS 06/23/2023 resolved 02032302941151795 SNOMED-CT HTN 09/19/2021 resolved 31194013 SNOMED-CT BIPOLAR DISORDER 09/19/2021 resolved 38588812 SN OMED-CT Allergies and Adverse Reactions Allergy Substance Reaction Severity Start Date Concern Status Co de Code System LISINOPRIL Active 97687 RxNorm AMBIEN Altered Mental Status (SNOMED-CT: 751766293) Active 906498 RxNorm Plan of Treatment Lab Draw 07/30/2020 Lab Draw 05/28/2020 US ABDOMEN LIMITED 1 ORGAN 05/06/2023 US RIGHT UPPER QUAD 07/05/2021 Encounters Encounter Diagnosis Start Date Code Code Sys tem Unspecified abdominal hernia without obstruction or gangrene 11/30/2022 SNOMED-CT Personal Care Team Section Performer Name Performer Role Active Date Inactive Da te
--- OUTSIDE RECORDS SUMMARY | 2024-02-14 15:12 | XMS_ITS ---
Author Organization Unknown Address [address] [place] [address] [phone] Phone Care Team Providers Care Blanket Folder Name Role Phone VEDA VELAZQUEZ Registered Nurse Unavailable YISEL BUENO Registered Nurse Unavailable DAI AMARAL Registered Nurse UnavailМарина Anthony Attending Unavailable JES DELAROSA Primary Unavailable UNLISTED PROVIDER - REQUESTED Xhandoff Un available Results LACTIC ACID - Collect Date/T eber: 05/16/2022 19:35 [facility] ID: [id number] [address] [place] [address], [address] LOINC: Test Value Unit Reference Range Code Code System Flag LACTIC ACID 2.8 mmol/L L=0.7 H=2.1 94788-1 LOINC H TEST QUAL (SERUM) - Collect Date/Time: 05/16/2022 15:44 [facility] ID: [id number] [address] [place] [address], [address] LOINC: 2118-8 Test Value Unit Reference Range Code Code System Flag TEST NEGATIVE 6-3 LOINC URINALYSIS WITH REFLEX CULT IF POSITIVE* - Collect Date/Time: 05/16/2022 15:44 [facility] ID: [id number] [address] [place] [address], [address] LOINC: 00771-7 Test Value Unit Reference Range Code Code System Flag COLLECTION MODE: CLEAN CATCH 23267-4 LOINC Color YELLOW yellow 5778-6 LOINC Appearance CLEAR clear 5767-9 LOINC Glucose urine >=1000 negative mg/dl 28729-4 [facility] A Bilirubin NEGATIVE negative 5770-3 [facility] Ketones NEGATIVE negative mg/dl 2514-8 [facility] Spec gravity 1.020 1.003 - 1.030 5811-5 [facility] pH urine 6.0 5.0 - 7.0 2756-5 [facility] Protein NEGATIVE negative mg/dl 96642-4 [facility] Urobilinogen 0.2 <or= 1 EU/dl 24381-6 LOINC Nitrite. NEGATIVE negative 5802-4 LOINC Blood NEGATIVE negative 5794-3 [facility] Leukocytes. NEGATIVE negative MICROSCOPIC NOT INDICAT ORDER VENOUS BLOOD GAS* - Co llect Date/Time: 05/16/2022 15:05 [facility] ID: [id number] [address] [place] [address], [id number] LOINC: Test Value Unit Reference Range Code Code System Flag Specimen type: VENOUS pH (venous) 7.40 L=7.38 H=7.46 2746-6 LOINC PCO2 (venous) 37.9 mm Hg L=41.0 H=51.0 2703-7 LOINC L PO2 (venous) 76 mm Hg L=30 H=50 2705-2 LOINC H HCO3 24 mmol/L L=22 H=26 1960-4 LOINC TCO2 (venous) 25 mmol/L L=22 H=28 3533-7 LOINC BASE EXCESS (venous) -1 mmol/L L=-2 H=3 3097-3 LOINC Assist vent. Resp. Rate /min. Temp. MAGNESIUM SERUM* - Collect D ate/Time: 05/16/2022 15:00 [facility] ID: [id number] [address] [place] [address], [address] LOINC: 84219-6 Test Value Unit Reference Range Code Code System Flag MAGNESIUM 1.7 mg/dL L=1.8 H=2.4 51879-2 LOINC L LIPASE* NEW - Collect Date/T eber: 05/16/2022 15:00 [facility] ID: [id number] [address] [place], [place], [id number] LOINC: 3040-3 Test Value Unit Reference Range Code Code System Flag LIPASE. 38 U/L L=16 H=77 CBC W/ DIFFERENTIAL* - Colle ct Date/Time: 05/16/2022 15:00 [facility] ID: [id number] [address] [place], [place], [address] LOINC: 05825-6 Test Value Unit Reference Range Code Code System Flag WBC 14.05 th/cmm L=5.00 H=10.00 6690-2 LOINC H NEUT % 57.5 % L=40.0 H=80.0 LYMPH % 34.7 % L=10.0 H=50.0 MONO % 6.4 % L=2.0 H=12.0 57944-4 LOINC EOS % 0.6 % L=0.0 H=8.0 BASO % 0.5 % L=0.0 H=3.0 IG % 0.3 % L=0.0 H=1.1 2514-8 LOINC NRBC % 0.0 % L=0.0 H=0.0 38003-4 LOINC NEUT abs count 8.1 th/cmm L=1.6 H=8.4 751-8 LOINC LYMPH abs count 4.9 th/cmm L=1.5 H=4.0 731-0 LOINC H MONO abs count 0.9 th/cmm L=0.2 H=1.0 742-7 LOINC EOS abs count 0.1 th/cmm L=0.0 H=0.5 711-2 LOINC BASO abs count 0.1 th/cmm L=0.0 H=0.2 704-7 LOINC IG abs count 0.0 th/cmm L=0.0 H=0.1 47841-0 LOINC NRBC abs count 0.0 mil/cmm L=0.0 H=0.0 28170-4 LOINC RBC 5.02 mil/cmm L=3.90 H=5.40 789-8 LOINC HEMOGLOBIN 16.2 gm/dL L=12.0 H=16.0 718-7 LOINC H HEMATOCRIT 45 % L=37 H=47 4544-3 LOINC MCV 90 fL L=82 H=92 787-2 LOINC MCH 32.3 pg L=27.0 H=31.0 785-6 LOINC H MCHC 35.9 % L=32.0 H=36.0 786-4 LOINC RDW-SD 39.4 fL L=39.0 H=49.0 788-0 LOINC PLATELET COUNT 364 th/cmm L=150 H=450 777-3 LOINC KETONES QUAL - Collect Date/ Time: 05/16/2022 15:00 [facility] ID: [id number] [address] [place] [address], [address] LOINC: 5567-3 Test Value Unit Reference Range Code Code System Flag ACETONE NEGATIVE 5567-3 [facility] COMPREHENSIVE METABOLIC PANE L (CMP) - Collect Date/Time: 05/16/2022 15:00 [facility] ID: [id number] [address] [place] [address], [address] LOINC: 01585-1 Test Value Unit Reference Range Code Code System Flag GLUCOSE 247 mg/dL L=70 H=116 2345-7 LOINC H BUN 13 mg/dL L=6 H=25 3094-0 LOINC CREATININE 1.04 mg/dL L=0.51 H=0.95 2160-0 LOINC H SODIUM SERUM 134 mmol/L L=136 H=145 2951-2 LOINC L POTASSIUM SERUM 4.2 mmol/L L=3.4 H=5.2 2823-3 LOINC CHLORIDE SERUM 96 mmol/L L=96 H=110 2075-0 LOINC CARBON DIOXIDE (CO2) 22 mmol/L L=22 H=34 2028-9 LOINC ANION GAP 15.6 mmol/L 09686-8 LOINC CALCIUM SERUM 9.8 mg/dL L=8.2 H=10.2 80807-6 LOINC BILIRUBIN TOTAL 0.9 mg/dL L=0.0 H=1.3 1975-2 LOINC ALK. PHOS. 82 U/L L=46 H=116 6768-6 LOINC SGOT (AST) 31 U/L L=15 H=37 1920-8 LOINC SGPT (ALT) 41 U/L L=12 H=78 1742-6 LOINC TOTAL PROTEIN 8.1 gm/dL L=6.0 H=8.0 2885-2 LOINC H ALBUMIN 4.4 gm/dL L=3.4 H=5.0 1751-7 LOINC AGE 46 years eGFR (non-Afr.Amer.) 58 mL/min 22961-7 LOINC eGFR (Afr-Djiboutian) 70 mL/min 91170-5 LOINC LACTIC ACID - Collect Date/T eber: 05/16/2022 15:00 [facility] ID: [id number] [address] [place], [place], [address] LOINC: Test Value Unit Reference Range Code Code System Flag LACTIC ACID 5.7 mmol/L L=0.7 H=2.1 58607-9 LOINC HH GLUCOSE FINGER/HEEL CAPILLAR Y - Collect Date/Time: 05/16/2022 13:33 [facility] ID: [id number] [address] [place] [address], [id number] LOINC: 49192-0 Test Value Unit Reference Range Code Code System Flag GLUCOSE CAP 254 mg/dL L=70 H=116 H Social History Type Status Start Date End Date Code Code Syst em Smoking History Current every day smoker 531848119 SNOMED CT Sex Female Vital Signs Vital Sign Value Unit [place] Value [place] Unit Date/Time Recent/Initial? Code Code System Body Mass Index 38.47 kg/m2 05/16/2022 13:27 Initial 70342 -5 LOINC Systolic Blood Pressure 140 mm[Hg] 05/16/2022 21:15 Most Recent 8480- 6 LOINC Diastolic Blood Pressure 86 mm[Hg] 05/16/2022 21:15 Most Recent 8462- 4 LOINC Systolic Blood Pressure 152 mm[Hg] 05/16/2022 13:27 Initial 8480- 6 LOINC Diastolic Blood Pressure 90 mm[Hg] 05/16/2022 13:27 Initial 8462- 4 [facility] Body Surface Area 1.94 m2 05/16/2022 13:27 Initial 3140- 1 LOINC Height 152.400 0 cm 60.00 in 05/16/2022 13:27 Initial 8302- 2 INC O2 Saturation 98 % 2022 21:15 Most Recent 49939 -5 [facility] O2 Saturation 99 % 2022 13:27 Initial 60298 -5 INC Pulse 83.0 /min 05/16/2022 21:15 Most Recent 8867- 4 INC Pulse 120.0 /min 05/16/2022 13:27 Initial 8867- 4 LOINC Respiration 15 /min 05/16/19 21:15 Most Recent 9279- 1 LOINC Respiration 20 /min 05/16/19 13:27 Initial 9279- 1 [facility] Temperature 36.0 Jazmine 96.8 F 05/16/19 13:27 Initial 8310- 5 [facility] Weight 89.36 kg 197.00 lbs 05/16/2022 13:27 Initial 38738 -7 [facility] Medications Medication Start Date End Date Route Frequency Dose Code Code System Medication Instructions Home Meds Zithromax 250MG Oral Tablet 04/17/2022 01/25/2023 ORAL DAILY 1 TABLET 545639 RxNorm TAKE 1 TABLET ORAL DAILY predniSONE 20MG Oral Tablet 04/17/2022 01/07/2023 ORAL DAILY 2 TABLET 759866 RxNorm TAKE 2 TABLET ORAL DAILY Percocet 5MG-325MG Oral Tablet 01/07/2023 06/23/2023 ORAL NEEDED EVERY 4 HOURS 1 TABLET 5239259 RxNorm TAKE 1 TABLET ORAL NEEDED EVERY 4 HOURS predniSONE 20MG Oral Tablet 01/07/2023 01/07/2023 ORAL DAILY 2 TABLET 983265 RxNorm TAKE 2 TABLET ORAL DAILY predniSONE 20MG Oral Tablet 01/07/2023 06/23/2023 ORAL DAILY 2 TABLET 306344 RxNorm TAKE 2 TABLET ORAL DAILY Vraylar 6MG Oral Capsule 06/23/2023 11/11/2023 ORAL DAILY 6 MILLIGRAMS 8973305 RxNorm TAKE 6 MILLIGRAM S ORAL DAILY LaMICtal 150MG Oral Tablet 06/23/2023 11/11/2023 ORAL DAILY 1 TABLET RxNorm TAKE 1 TABLET ORAL DAILY HumaLOG 100U/1ML Injection Solution 06/23/2023 Unknown INJECTIO N DAILY 1 unit(s) 426390 RxNorm 1 EACH INJECTION DAILY Ondansetron 4MG Oral Tablet 06/23/2023 01/31/2024 ORAL NEEDED EVERY 6 HOURS 4 MILLIGRAMS 444970 RxNorm TAKE 4 MILLIGRAM S ORAL NEEDED EVERY 6 HOURS SEROquel 100MG Oral Tablet 06/23/2023 11/11/2023 ORAL BEDTIME 150 MILLIGRAMS 640939 RxNorm TAKE 150 MILLIGRAM S ORAL BEDTIME [...] Status Code Code System SLURRED SPEECH active 958882155 SNOME D-CT DIABETES 2 active 48384471 SNOMED-CT BIPOLAR DISORDER active 47157665 SNO MED-CT PTSD 09/19/2021 resolved 56716552 SNOMED-CT FIBROMYALGIA 09/19/2021 resolved 223438370 SNOMED -CT DIABETES 2 07/05/2021 resolved 96662307 SNOMED-C T FALL FROM STAIRS 06/23/2023 resolved 667748595 SN OMED-CT CLOSED FRACTURE OF RIGHT HUMERUS 06/23/2023 resolved [id number] SNOMED-CT HTN 09/19/2021 resolved 95109581 SNOMED-CT BIPOLAR DISORDER 09/19/2021 resolved 03692239 SN OMED-CT Allergies and Adverse Reactions Allergy Substance Reaction Severity Start Date Concern Status Co de Code System LISINOPRIL Active 22199 RxNorm AMBIEN Altered Mental Status (SNOMED-CT: 407129660) Active 392493 RxNorm Plan of Treatment Lab Draw 07/30/2020 Lab Draw 05/28/2020 US ABDOMEN LIMITED 1 ORGAN 05/06/2023 US RIGHT UPPER QUAD 07/05/2021 Encounters Encounter Diagnosis Start Date Code Code Sys tem Nausea with vomiting, unspecified 05/16/2022 SNOMED-CT Personal Care Team Section Performer Name Performer Role Active Date Inactive Da te
--- OUTSIDE RECORDS SUMMARY | 2024-02-14 15:13 | XMS_ITS ---
Author Organization Unknown Address [address] [place] [address] [phone] Phone Care Team Providers Care Dehydrogenation Converter Operator Name Role Phone LUIS ALBERTO NEAL Registered Nurse Unavailable ANN Kay Attending Unavailable YELITZA RAJPUT Primary Unavailable UNLISTED PROVIDER - REQUESTED Xhandoff Un available Results XR LS SPINE 2V OR 3V - Compl eted: 01/07/2023 10:09 LOINC: [place], [place] [address] PACS PROPOSAL ANALYST REPORT Patient Name: HILDA CROWLEY MRN: Sex: : Age: [id number] F 1975 47 Account: Accession: Admit: StayType: [id number] 01/07/2023 E/R Ordered: Order ID: Submitted: Ordering Provider: 01/07/2023 09:53 [id number] [facility] MICHAEL JUAREZ Completed: Technologist: Resulted: 01/07/2023 10:09 DEREKG 01/07/2023 10:18 Study Description: XR LS SPINE 2V OR 3V Study Reason: Trauma 3 Views COMPARISON: None FINDINGS: The vertebral bodies are normal in height .. No gross evidence of lytic or blastic lesions. Disc spaces are maintained.Minimal endplate osteophytes.. No spondylolysis, spondylolisthesis or scoliosis. SI joints and pubic symphysis and visualized portions of the hip joints are unremarkable. 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 Report Digitally Signed by Noelle Cancino on 01/07/2023 10:18 AM EDT Social History Type Status Start Date End Date Code Code Syst em Smoking History Current every day smoker 470232434 SNOMED CT Sex Female Vital Signs Vital Sign Value Unit [place] Value [place] Unit Date/Time Recent/Initial? Code Code System Body Mass Index 35.15 kg/m2 01/07/2023 09:02 Initial 01225 -5 [facility] Systolic Blood Pressure 139 mm[Hg] 01/07/2023 09:02 Initial 8480- 6 [facility] Diastolic Blood Pressure 92 mm[Hg] 01/07/2023 09:02 Initial 8462- 4 [facility] Body Surface Area 1.86 m2 01/07/2023 09:02 Initial 3140- 1 [facility] Height 152.400 0 cm 60.00 in 01/07/2023 09:02 Initial 8302- 2 [facility] O2 Saturation 96 % 2022 09:02 Initial 90680 -5 [facility] Pulse 111.0 /min 01/07/2023 09:02 Initial 8867- 4 [facility] Respiration 22 /min 01/08/20 23 09:02 Initial 9279- 1 [facility] Temperature 36.8 Jazmine 98.2 F 01/08/20 23 09:02 Initial 8310- 5 [facility] Weight 81.65 kg 180.00 lbs 01/07/2023 09:02 Initial 92196 -7 [facility] Medications Medication Start Date End Date Route Frequency Dose Code Code System Medication Instructions Home Meds Zithromax 250MG Oral Tablet 04/17/2022 01/25/2023 ORAL DAILY 1 TABLET 395194 RxNorm TAKE 1 TABLET ORAL DAILY predniSONE 20MG Oral Tablet 04/17/2022 01/07/2023 ORAL DAILY 2 TABLET 759302 RxNorm TAKE 2 TABLET ORAL DAILY Percocet 5MG-325MG Oral Tablet 01/07/2023 06/23/2023 ORAL NEEDED EVERY 4 HOURS 1 TABLET 7621547 RxNorm TAKE 1 TABLET ORAL NEEDED EVERY 4 HOURS predniSONE 20MG Oral Tablet 01/07/2023 01/07/2023 ORAL DAILY 2 TABLET 550705 RxNorm TAKE 2 TABLET ORAL DAILY predniSONE 20MG Oral Tablet 01/07/2023 06/23/2023 ORAL DAILY 2 TABLET 422445 RxNorm TAKE 2 TABLET ORAL DAILY Vraylar 6MG Oral Capsule 06/23/2023 11/11/2023 ORAL DAILY 6 MILLIGRAMS 8180567 RxNorm TAKE 6 MILLIGRAM S ORAL DAILY LaMICtal 150MG Oral Tablet 06/23/2023 11/11/2023 ORAL DAILY 1 TABLET RxNorm TAKE 1 TABLET ORAL DAILY HumaLOG 100U/1ML Injection Solution 06/23/2023 Unknown INJECTIO N DAILY 1 unit(s) 624621 RxNorm 1 EACH INJECTION DAILY Ondansetron 4MG Oral Tablet 06/23/2023 01/31/2024 ORAL NEEDED EVERY 6 HOURS 4 MILLIGRAMS 490997 RxNorm TAKE 4 MILLIGRAM S ORAL NEEDED EVERY 6 HOURS SEROquel 100MG Oral Tablet 06/23/2023 11/11/2023 ORAL BEDTIME 150 MILLIGRAMS 240906 RxNorm TAKE 150 MILLIGRAM S ORAL BEDTIME [...] Status Code Code System SLURRED SPEECH active 827261964 SNOME D-CT DIABETES 2 active 80168992 SNOMED-CT BIPOLAR DISORDER active 74109691 SNO MED-CT PTSD 09/19/2021 resolved 67028120 SNOMED-CT FIBROMYALGIA 09/19/2021 resolved 132869945 SNOMED -CT DIABETES 2 07/05/2021 resolved 48716442 SNOMED-C T FALL FROM STAIRS 06/23/2023 resolved 538000875 SN OMED-CT CLOSED FRACTURE OF RIGHT HUMERUS 06/23/2023 resolved 98553897806220486 SNOMED-CT HTN 09/19/2021 resolved 12245523 SNOMED-CT BIPOLAR DISORDER 09/19/2021 resolved 10278822 SN OMED-CT Allergies and Adverse Reactions Allergy Substance Reaction Severity Start Date Concern Status Co de Code System LISINOPRIL Active 78004 RxNorm AMBIEN Altered Mental Status (SNOMED-CT: 010923685) Active 338165 RxNorm Plan of Treatment Lab Draw 07/30/2020 Lab Draw 05/28/2020 US ABDOMEN LIMITED 1 ORGAN 05/06/2023 US RIGHT UPPER QUAD 07/05/2021 Encounters Encounter Diagnosis Start Date Code Code Sys tem Lumbago with sciatica 01/07/2023224255504 SNOMED -CT Personal Care Team Section Performer Name Performer Role Active Date Inactive Da te
--- OUTSIDE RECORDS SUMMARY | 2024-02-14 15:15 | XMS_ITS ---
Author Organization Unknown Address [address] [place] [address] [phone] Phone Care Team Providers Care Store Cashier Name Role Phone MALIA Anthony Attending Unavailable Social History Type Status Start Date End Date Code Code Syst em Smoking History Current every day smoker 829058737 SNOMED CT Sex Female Medications Medication Start Date End Date Route Frequency Dose Code Code System Medication Instructions Home Meds predniSONE 20MG Oral Tablet 01/07/2023 06/23/2023 ORAL DAILY 2 TABLET 231295 RxNorm TAKE 2 TABLET ORAL DAILY Percocet 5MG-325MG Oral Tablet 01/07/2023 06/23/2023 ORAL NEEDED EVERY 4 HOURS 1 TABLET 8321716 RxNorm TAKE 1 TABLET ORAL NEEDED EVERY 4 HOURS Ondansetron 4MG Oral Tablet 06/23/2023 01/31/2024 ORAL NEEDED EVERY 6 HOURS 4 MILLIGRAM S 853966 RxNorm TAKE 4 MILLIGRAM S ORAL NEEDED EVERY 6 HOURS SEROquel 100MG Oral Tablet 06/23/2023 11/11/2023 ORAL BEDTIME 150 MILLIGRAM S 883488 RxNorm TAKE 150 MILLIGRAM S ORAL BEDTIME Spironolactone 100MG Oral Tablet 06/23/2023 Unknown ORAL DAILY 100 MILLIGRAM S 975363 RxNorm TAKE 100 MILLIGRAM S ORAL DAILY Vraylar 6MG Oral Capsule 06/23/2023 11/11/2023 ORAL DAILY 6 MILLIGRAM S 8092032 RxNorm TAKE 6 MILLIGRAM S ORAL DAILY LaMICtal 150MG Oral Tablet 06/23/2023 11/11/2023 ORAL DAILY 1 TABLET RxNorm TAKE 1 TABLET ORAL DAILY HumaLOG 100U/1ML Injection Solution 06/23/2023 Unknown INJECTIO N DAILY 1 unit(s) 742845 RxNorm 1 EACH INJECTION DAILY Martinshivani 06/23/2023 Unknown ORAL WEEKLY 15 MILLIGRAM S RxNorm TAKE 15 MILLIGRAM S ORAL WEEKLY [...] Status Code Code System SLURRED SPEECH active 214733741 SNOME D-CT DIABETES 2 active 79746636 SNOMED-CT BIPOLAR DISORDER active 54296492 SNO MED-CT PTSD 09/19/2021 resolved 00703699 SNOMED-CT FIBROMYALGIA 09/19/2021 resolved 807910801 SNOMED -CT DIABETES 2 07/05/2021 resolved 35200063 SNOMED-C T FALL FROM STAIRS 06/23/2023 resolved 375240168 SN OMED-CT CLOSED FRACTURE OF RIGHT HUMERUS 06/23/2023 resolved 90731360092778384 SNOMED-CT HTN 09/19/2021 resolved 79607750 SNOMED-CT BIPOLAR DISORDER 09/19/2021 resolved 49794594 SN OMED-CT Allergies and Adverse Reactions Allergy Substance Reaction Severity Start Date Concern Status Co de Code System LISINOPRIL Active 61896 RxNorm AMBIEN Altered Mental Status (SNOMED-CT: 546758388) Active 590978 RxNorm Plan of Treatment Lab Draw 07/30/2020 Lab Draw 05/28/2020 US ABDOMEN LIMITED 1 ORGAN 05/06/2023 US RIGHT UPPER QUAD 07/05/2021 Encounters Encounter Diagnosis Start Date Code Code Sys tem Altered mental status, unspecified 06/22/2023 SNOMED-CT Personal Care Team Section Performer Name Performer Role Active Date Inactive Da te
--- OUTSIDE RECORDS SUMMARY | 2024-02-14 15:15 | XMS_ITS ---
Author Organization Unknown Address [address] [place] [address] [phone] Phone Care Team Providers Care Wood Tile Installation Helper Name Role Phone KALEIGH DOYLE Registered Nurse Unavailable Unavailable Xwatchlist Unavailable ELIZABETH Adhikari Attending Unavailable MALIA QUESADA Unavailable YELITZA ATIYA Primary Unavailable UNLISTED PROVIDER - REQUESTED Xhandoff Un available Results NOVA GLUCOSE FINGER HEEL CAP ILLARY - Collect Date/Time: 06/23/2023 07:49 [facility] ID: [id number] [address] [place] [address], [id number] LOINC: 36151-4 Test Value Unit Reference Range Code Code System Flag GLUCOSE CAP 134 mg/dL L=70 H=116 13461-3 LOINC H LAMOTRIGINE (LAMICTAL)* - Co llect Date/Time: 06/22/2023 21:27 [facility] ID: [id number] [address] [place] [address], [id number] LOINC: 6948-4 Test Value Unit Reference Range Code Code System Flag Lamotrigine, S 4.5 3.0-15.0 6948-4 LOINC DRUG SCN 13 PANEL (MEDTOX)* - Collect Date/Time: 06/22/2023 20:27 [facility] ID: [id number] [address] [place] [address], [id number] LOINC: 12925-9 Test Value Unit Reference Range Code Code System Flag CANNABINOIDS POSITIVE Cutoff = 50 ng/mL 61183-7 LOINC A PHENCYCLIDINE NEGATIVE Cutoff = 25 ng/mL 17358-5 LOINC COCAINE NEGATIVE Cutoff = 150 ng/mL 00795-9 LOINC METHAMPHETAMINES NEGATIVE Cutoff = 50 0 ng/mL 47682-8 LOINC OPIATES NEGATIVE Cutoff = 100 ng/mL 41376-6 LOINC AMPHETAMINES NEGATIVE Cutoff = 500 ng/mL 12223-9 LOINC BENZODIAZEPINES NEGATIVE Cutoff = 150 ng/mL 33174-5 LOINC TRICYCLIC ANTIDEP POSITIVE Cutoff = 3 00 ng/mL 3533-7 LOINC A METHADONE NEGATIVE Cutoff = 200 ng/mL 86600-9 LOINC BARBITURATES NEGATIVE Cutoff = 200 ng/mL 22122-5 LOINC OXYCODONE NEGATIVE Cutoff = 100 ng/mL 46622-1 INC BUPRENORPHINE NEGATIVE Cutoff = 10 mg/mL 3414-0 [facility] COVID FLU RSV GENEXPE RT - Collect Date/Time: 06/22/2023 20:27 [facility] ID: [id number] [address] [place], [place], [id number] LOINC: 82870-9 Test Value Unit Reference Range Code Code System Flag COVID NEGATIVE Normal: Negative 21484-8 LOINC INFLUENZA A DNA NEGATIVE Normal: Negative 62932-3 LOINC INFLUENZA B DNA NEGATIVE Normal: Negative 83671-9 LOINC RSV DNA NEGATIVE Normal: Negative 42684-2 LOINC URINALYSIS WITH REFLEX CULT IF POSITIVE* - Collect Date/Time: 06/22/2023 20:27 [facility] ID: [id number] [address] [place] [address], [address] LOINC: 01849-5 Test Value Unit Reference Range Code Code System Flag COLLECTION MODE: CLEAN CATCH 49808-0 LOINC Color YELLOW yellow 5778-6 LOINC Appearance CLEAR clear 5767-9 LOINC Glucose urine NEGATIVE negative mg/dl 31516-7 LOINC Bilirubin NEGATIVE negative 5770-3 LOINC Ketones NEGATIVE negative mg/dl 2514-8 LOINC Spec gravity <=1.005 1.003 - 1.030 5811-5 LOINC pH urine 5.5 5.0 - 7.0 2756-5 LOINC Protein NEGATIVE negative mg/dl 28038-9 LOINC Urobilinogen 0.2 <or= 1 EU/dl 73292-5 LOINC Nitrite. NEGATIVE negative 5802-4 LOINC Blood NEGATIVE negative 5794-3 LOINC Leukocytes. NEGATIVE negative MICROSCOPIC NOT INDICAT TEST QUAL (URINE) - Collect Date/Time: 06/22/2023 20:27 [facility] ID: [id number] [address] [place] [address], [address] LOINC: 2106-3 Test Value Unit Reference Range Code Code System Flag TEST NEGATIVE 2106-3 LOINC AMMONIA - Collect Date/Time: 06/22/2023 19:12 [facility] ID: [id number] [address] [place] [address], [address] LOINC: 61061-0 Test Value Unit Reference Range Code Code System Flag AMMONIA 24 umol/L L=19 H=54 19641-4 LOINC ALCOHOL (ETHANOL)* - Collect Date/Time: 06/22/2023 19:12 [facility] ID: [id number] [address] [place] [address], [address] LOINC: 20520-7 Test Value Unit Reference Range Code Code System Flag ALCOHOL (ETHANOL) < 3 mg/dL 90658-3 LOINC ACETAMINOPHEN* - Collect Eduardo e/Time: 06/22/2023 19:12 [facility] ID: [id number] [address] [place] [address], [address] LOINC: 3298-7 Test Value Unit Reference Range Code Code System Flag ACETAMINOPHEN < 2.0 ug/mL L=10.0 H=20.0 3298-7 LOINC L LACTIC ACID - Collect Date/T eber: 06/22/2023 19:12 [facility] ID: [id number] [address] [place] [address], [address] LOINC: Test Value Unit Reference Range Code Code System Flag LACTIC ACID 3.2 mmol/L L=0.7 H=2.1 29897-8 LOINC H HEMOGLOBIN A1C* - Collect Da te/Time: 06/22/2023 19:12 [facility] ID: [id number] [address] [place] [address], [address] LOINC: 4548-4 Test Value Unit Reference Range Code Code System Flag Hgb A1c 9.0 % L=3.8 H=5.7 4548-4 LOINC H MEAN BLOOD GLUCOSE 214 mg/dL 80539-4 LOINC SALICYLATE SERUM* - Collect Date/Time: 06/22/2023 19:12 [facility] ID: [id number] [address] [place] [address], [address] LOINC: 4024-6 Test Value Unit Reference Range Code Code System Flag SALICYLATE 3.8 mg/dL L=15.0 H=30.0 4024-6 LOINC L TSH THYROID STIMULATING HORM ONE* - Collect Date/Time: 06/22/2023 19:12 [facility] ID: [id number] [address] [place] [address], [address] LOINC: 3014-8 Test Value Unit Reference Range Code Code System Flag TSH 0.822 uIU/mL L=0.360 H=3.740 3014-8 LOINC CBC W/ DIFFERENTIAL* - Colle ct Date/Time: 06/22/2023 19:12 [facility] ID: [id number] [address] [place] [address], [id number] LOINC: 97915-7 Test Value Unit Reference Range Code Code System Flag WBC 13.42 th/cmm L=5.00 H=10.00 H NRBC % 0.0 % L=0.0 H=0.0 NRBC abs count 0.0 mil/cmm L=0.0 H=0.0 RBC 4.51 mil/cmm L=3.90 H=5.40 HEMOGLOBIN 14.5 gm/dL L=12.0 H=16.0 HEMATOCRIT 41 % L=37 H=47 MCV 90 fL L=82 H=92 MCH 32.2 pg L=27.0 H=31.0 H MCHC 35.8 % L=32.0 H=36.0 RDW-SD 37.9 fL L=39.0 H=49.0 L PLATELET COUNT 327 th/cmm L=150 H=450 Segs % 40 Bands % 4 Lymphs % 51 97846-6 LOINC Monos % 4 14618-7 LOINC Eos % Baso % 1 Atyp lymphs 2+ Smudge cells 1+ CORRECTED CORRECTED CORRECTED CORRECTED COMPREHENSIVE METABOLIC PANE L (CMP) - Collect Date/Time: 06/22/2023 19:12 [facility] ID: [id number] [address] [place] [address], [address] LOINC: 16190-3 Test Value Unit Reference Range Code Code System Flag GLUCOSE 209 mg/dL L=70 H=116 2345-7 LOINC H BUN 6 mg/dL L=6 H=25 3094-0 LOINC CREATININE 1.04 mg/dL L=0.51 H=0.95 2160-0 LOINC H SODIUM SERUM 136 mmol/L L=136 H=145 2951-2 LOINC POTASSIUM SERUM 3.6 mmol/L L=3.4 H=5.2 2823-3 LOINC CHLORIDE SERUM 100 mmol/L L=96 H=110 2075-0 LOINC CARBON DIOXIDE (CO2) 28 mmol/L L=22 H=34 2028-9 LOINC ANION GAP 8.0 mmol/L 45950-6 LOINC CALCIUM SERUM 8.8 mg/dL L=8.2 H=10.2 50523-3 LOINC BILIRUBIN TOTAL 0.5 mg/dL L=0.0 H=1.3 1975-2 LOINC ALK. PHOS. 86 U/L L=46 H=116 6768-6 LOINC SGOT (AST) 17 U/L L=15 H=37 1920-8 LOINC SGPT (ALT) 38 U/L L=12 H=78 1742-6 LOINC TOTAL PROTEIN 7.3 gm/dL L=6.0 H=8.0 2885-2 LOINC ALBUMIN 3.8 gm/dL L=3.4 H=5.0 1751-7 LOINC AGE 47 years eGFR (non-Afr.Amer.) 57 mL/min 68323-2 LOINC eGFR (Afr-Eritrean) 69 mL/min 57923-8 LOINC NOVA GLUCOSE FINGER HEEL CAP ILLARY - Collect Date/Time: 06/22/2023 19:01 [facility] ID: [id number] [address] [place], [place], [id number] LOINC: 68242-7 Test Value Unit Reference Range Code Code System Flag GLUCOSE CAP 188 mg/dL L=70 H=116 84353-[address] HEAD WO CONTRAST - Comple katey: 06/22/2023 19:33 LOINC: [facility] RADIOLOGY [place], [place] [address] PACS LOCAL FLATBED DRIVER REPORT Patient Name: HIDLA CROWLEY MRN: Sex: : Age: [id number] F 1975 47 Account: Accession: Admit: StayType: [id number] 06/22/2023 E/R Ordered: Order ID: Submitted: Ordering Provider: 06/22/2023 19:11 [id number] ROYA MORALES Completed: Technologist: Resulted: 06/22/2023 19:33 AT 06/22/2023 19:38 Study Description: CT HEAD WO CONTRAST Study Reason: Altered Mental Status TECHNIQUE: Imaging Protocol: Axial computed tomography images with coronal and sagittal reformatted images were created and reviewed COMPARISON: Prior brain CT scan 09/19/2021. FINDINGS: There are no skull fractures. Mucosal thickening noted in the left maxillary sinus without a fluid level therein. Right maxillary sinus is clear as are the other paranasal sinuses and mastoid air cells. There is no evidence of intracranial hemorrhage, mass effect, or shift of midline structures. There are no extra-axial fluid collections. The ventricles are not enlarged or shifted and there is no blood within the ventricular system nor within the basal cisterns. Calcification noted in both petrous clinoid ligaments. IMPRESSION: No acute intracranial findings on this noninfused CT scan of the brain. Called by myself to ER provider Report Digitally Signed by Nitesh Gutierrez on 06/22/2023 07:38 PM EST Social History Type Status Start Date End Date Code Code Syst em Smoking History Current every day smoker 826974508 SNOMED CT Sex Female Vital Signs Vital Sign Value Unit [place] Value [place] Unit Date/Time Recent/Initial? Code Code System Body Mass Index 31.25 kg/m2 06/22/2023 19:15 Initial 25769 -5 LOINC Systolic Blood Pressure 96 mm[Hg] 06/23/2023 09:01 Most Recent 8480- 6 LOINC Diastolic Blood Pressure 65 mm[Hg] 06/23/2023 09:01 Most Recent 8462- 4 LOINC Systolic Blood Pressure 130 mm[Hg] 06/22/2023 19:15 Initial 8480- 6 LOINC Diastolic Blood Pressure 72 mm[Hg] 06/22/2023 19:15 Initial 8462- 4 LOINC Body Surface Area 1.75 m2 06/22/2023 19:15 Initial 3140- 1 LOINC Height 152.400 0 cm 60.00 in 06/22/2023 19:15 Initial 8302- 2 LOINC O2 Saturation 97 % 2023 09:01 Most Recent 18337 -5 LOINC O2 Saturation 99 % 2023 19:15 Initial 77669 -5 LOINC Pulse 93.0 /min 06/23/2023 09:01 Most Recent 8867- 4 LOINC Pulse 114.0 /min 06/22/2023 19:15 Initial 8867- 4 LOINC Respiration 18 /min 06/23/19 09:01 Most Recent 9279- 1 LOINC Respiration 14 /min 06/22/19 19:15 Initial 9279- 1 LOINC Temperature 36.7 Jazmine 98.1 F 06/23/19 09:01 Most Recent 8310- 5 LOINC Temperature 36.3 Jazmine 97.3 F 06/22/19 19:15 Initial 8310- 5 INC Weight 79.42 kg 175.10 lbs 06/22/2023 22:00 Most Recent 18992 -7 INC Weight 72.57 kg 160.00 lbs 06/22/2023 19:15 Initial 26371 -7 [facility] Medications Medication Start Date End Date Route Frequency Dose Code Code System Medication Instructions Home Meds predniSONE 20MG Oral Tablet 01/07/2023 06/23/2023 ORAL DAILY 2 TABLET 810362 RxNorm TAKE 2 TABLET ORAL DAILY Percocet 5MG-325MG Oral Tablet 01/07/2023 06/23/2023 ORAL NEEDED EVERY 4 HOURS 1 TABLET 2410363 RxNorm TAKE 1 TABLET ORAL NEEDED EVERY 4 HOURS Ondansetron 4MG Oral Tablet 06/23/2023 01/31/2024 ORAL NEEDED EVERY 6 HOURS 4 MILLIGRAM S 128391 RxNorm TAKE 4 MILLIGRAM S ORAL NEEDED EVERY 6 HOURS SEROquel 100MG Oral Tablet 06/23/2023 11/11/2023 ORAL BEDTIME 150 MILLIGRAM S 978727 RxNorm TAKE 150 MILLIGRAM S ORAL BEDTIME Spironolactone 100MG Oral Tablet 06/23/2023 Unknown ORAL DAILY 100 MILLIGRAM S 552298 RxNorm TAKE 100 MILLIGRAM S ORAL DAILY Vraylar 6MG Oral Capsule 06/23/2023 11/11/2023 ORAL DAILY 6 MILLIGRAM S 1790172 RxNorm TAKE 6 MILLIGRAM S ORAL DAILY LaMICtal 150MG Oral Tablet 06/23/2023 11/11/2023 ORAL DAILY 1 TABLET RxNorm TAKE 1 TABLET ORAL DAILY HumaLOG 100U/1ML Injection Solution 06/23/2023 Unknown INJECTIO N DAILY 1 unit(s) 838660 RxNorm 1 EACH INJECTION DAILY [place] 06/23/2023 Unknown ORAL WEEKLY 15 MILLIGRAM S [...] Status Code Code System SLURRED SPEECH active 831196802 SNOME D-CT DIABETES 2 active 10800677 SNOMED-CT BIPOLAR DISORDER active 20421006 SNO MED-CT PTSD 09/19/2021 resolved 66309861 SNOMED-CT FIBROMYALGIA 09/19/2021 resolved 057359532 SNOMED -CT DIABETES 2 07/05/2021 resolved 84466186 SNOMED-C T FALL FROM STAIRS 06/23/2023 resolved 611839811 SN OMED-CT CLOSED FRACTURE OF RIGHT HUMERUS 06/23/2023 resolved 48203203996162716 SNOMED-CT HTN 09/19/2021 resolved 48761609 SNOMED-CT BIPOLAR DISORDER 09/19/2021 resolved 59118106 SN OMED-CT Allergies and Adverse Reactions Allergy Substance Reaction Severity Start Date Concern Status Co de Code System LISINOPRIL Active 34555 RxNorm AMBIEN Altered Mental Status (SNOMED-CT: 381973984) Active 670089 RxNorm Plan of Treatment Lab Draw 07/30/2020 Lab Draw 05/28/2020 US ABDOMEN LIMITED 1 ORGAN 05/06/2023 US RIGHT UPPER QUAD 07/05/2021 Encounters Encounter Diagnosis Start Date Code Code Sys tem Slurred speech 06/22/2023 SNOMED-CT Personal Care Team Section Performer Name Performer Role Active Date Inactive Da te
--- OUTSIDE RECORDS SUMMARY | 2024-02-14 15:15 | XMS_ITS | Encounter Summary ---
Author Organization [facility] [place] [address] Care Team Providers Care Chip Crusher Operator Name Role Phone Jossie Patton APRN Primary Care Provider [phone] Reason for Visit * Reason Comments Medication Refill Encounter Details Date Type Department Care Team (Late Contact Info) Description 10/27/2023 Refill [place] [phone] Kristi Caicedo [facility] [place] [address] [place] [address] Social History Tobacco Use Types Packs/Day Years Used Date Smoking Tobacco: Every Day Cigarettes Smokeless Tobacco: Never Comments:marijuana occasiona lly Alcohol Use Standard Drinks/Week Comments Not Currently 0 (1 standard drink = 0.6 oz pur e alcohol) Sex and Gender Information Value Date Recorded Sex Assigned at Not on file Gender Identity Not on file Sexual Orientation Not on file documented as of this encounter Plan of Treatment Upcoming Encounters Date Type Department Care Team (Late Contact Info) Description 02/21/2024 1:40 PM EDT Office [place] [phone] Kristi Caicedo [facility] [place] [address] documented as of this encounter Visit Diagnoses Not on filedocumented in this encounter Care Teams Chip Crusher Operator Relationship Specialty Start Date End Date Jossie Patton APRN [address] [place] [address] PCP - General Family Medicine 04/19/20 documented as of this encounter
--- OUTSIDE RECORDS SUMMARY | 2024-02-14 15:15 | XMS_ITS | Clinical Summary ---
Author Organization [facility] Address [facility] [place] [address] Care Team Providers Care Roll Edge Stitcher Hand Name Role Phone Belle Pattonily Gabrielle GARCIA Primary Care Provider [phone] Allergies Active Allergy Reactions Criticality Noted Date Comments Zolpidem Other (See Comments) 09/06/2023 Patient does odd things, I.e. sleepwalking Lisinopril Medium 09/08/2019 Medications Medication Sig Dispensed Refills Start Date End Date Status glucagon, Human Recombinant, (Glucagon Emergency Kit, human,) 1 mg Recon Soln Inject 1 mg into the muscle as needed. Needs refill 05/08/2014 Active amLODIPine (Norvasc) 10 mg Tablet Take 10 mg by mouth Daily. 07/20/2019 Active blood sugar diagnostic strips (OneTouch Verio test strips) Strip USE TO CHECK BLOOD GLUCOSE TWICE DAILY DX E11.9 06/25/2019 Active Blood-Glucose Meter Misc USE TO CHECK BLOOD GLUCOSE TWICE DAILY DX E11.9 06/25/2019 Active cholecalciferol, Vitamin D3, 50 mcg (2,000 unit) Capsule Take 1 tablet by mouth Daily. 04/07/2019 Active cyclobenzaprine (Flexeril) 10 mg Tablet TAKE 1 TABLET BY MOUTH THREE TIMES A DAY NEEDED 09/07/2019 Active irbesartan (AVAPRO) 150 mg Tablet Take 150 mg by mouth Daily. 08/18/2019 Active labetaloL (Normodyne) 200 mg Tablet Take 200 mg by mouth Twice daily. 05/16/2014 Active albuteroL 90 mcg/actuation HFA Aerosol Inhaler INHALE 1 TO 2 PUFFS EVERY 4 TO 6 HOURS NEEDED FOR WHEEZING 08/03/2019 Active diclofenac (Voltaren) 1 % Gel APPLY A SMALL AMOUNT TO SKIN THREE TIMES A DAY NEEDED FOR PAIN 08/02/2021 Active prazosin (Minipress) 1 mg Capsule TAKE 1 CAPSULES BY MOUTH FOR 2 DAYS THEN INCREASE TO 2 CAPSULES AT NIGHT (D/C CLONIDINE MONITOR FOR BLOOD PRESSURE DAILY) 08/12/2021 Active Keto-Diastix Strip See Admin Instructions. 06/28/2021 Active Vraylar 6 mg Capsule Take 1 capsule by mouth daily. 3 mg 08/22/2021 Active naloxone (Narcan) 4 mg/actuation [place], Non-Aerosol SPRAY 1 SPRAY INTO BOTH NOSTRILS NEEDED FOR SUSPECTED OVERDOSE 09/21/2021 Active Acetylcysteine 600 mg Capsule TAKE 2 CAPSULES BY MOUTH TWICE A DAY NEEDED 07/07/2021 Active clotrimazole (Mycelex) 10 mg Edu HOLD 1 EDU IN MOUTH FIVE TIMES A DAY 05/11/2021 Active nystatin (Mycostatin) 100,000 unit/mL Suspension TAKE 5 ML BY MOUTH 4 TIMES A DAY-- SWISH AND SWALLOW 05/15/2021 Active ondansetron (Zofran) 4 mg Tablet Take 4 mg by mouth every 6 hours as needed. 06/27/2021 Active QUEtiapine (SEROquel) 100 mg Tablet Take 100 mg by mouth daily. She reports she is working on reduced dose. 03/05/2022 Active Insulin Syringe-Needle U-100 (Insulin Syringe) 0.5 mL 29 gauge x 1/2 SyringeIndications: Type 2 diabetes mellitus with hyperglycemia, with long-term current use of insulin 1 each by [facility].(Non-Drug; Combo Route) route 6 times daily. Use as needed when pump malfunctions. 100 each 3 05/18/2022 Active metFORMIN (Glucophage) 1,000 mg tablet Take 1 tablet by mouth 2 times daily. 180 tablet 1 08/14/2022 Active insulin needles, disposable, 31 gauge x 3/16 Needle 1 each by [facility].(Non-Drug; Combo Route) route daily. DX: E11.65. Tech Lite brand per insurance please. Thank you! 90 each 3 11/01/2022 Active Insulin Tresiba FlexTouch U-200 200 unit/mL (3 mL) Insulin PenIndications:Unco ntrolled type 2 diabetes mellitus with hyperglycemia INJECT 50-60 UNITS UNDER THE SKIN NIGHTLY 30 mL 01/11/2023 Active Additional Information Patient not taking.Reported on 09/06/2023 omeprazole (PriLOSEC) [address] capsule Take 40 mg by mouth daily. 10/18/2022 Active prazosin (Minipress) 2 mg capsule Take 2 mg by mouth nightly. 01/21/2023 Active spironolactone (Aldactone) 100 mg tablet TAKE ONE TABLET BY MOUTH EVERY DAY 90 tablet 1 04/04/2023 Active Blood-Glucose Meter,Continuous (Dexcom G7 Radiator Fitter) Misc by [facility].(Non-Drug; Combo Route) route. Active humaLOG 100 unit/mL Solution Inject up to 100 units subcutaneously daily via insulin pump 100 mL 3 09/06/2023 Active tirzepatide (Mounjaro) 15 mg/0.5 mL Pen Injector Inject 15 Units subcutaneously once a week. 2 mL 5 12/19/2023 Active Active Problems Problem Noted Date Diagnosed Date Insulin pump in place 05/18/2022 s/p ORIF R diaphyseal humerus fracture 09/28/21 (Julieta Giron) 09/26/2021 Adult BMI 40.0-44.9 kg/sq m 05/23/2020 Vitamin B12 deficiency (used to take B12 shots p reviously) 05/23/2020 Hypertension 05/21/2020 Vitamin D deficiency (25vitD 14.5 on 05/16/13-> 29 on 07/07/19) 05/21/2020 [place]-induced hypothyroidi sm and transient hypercalcemia (TSH 4.4H on 09/18/19, iCa 5.75H with Li 1.3-1.7H) => stopped Li since then 05/21/2020 History of tobacco use 05/21/2020 Fatty liver determined by bi opsy 11/25/2009; mildly elevated LFTs 05/21/2020 Chronic nonintractable headache 06/28/2017 Tobacco use in , ch ildbirth, or the [place], antepartum 02/22/2014 Overview (09/27/2021): Smoking - 1/2 ppd- encouraged further decrease Episodic mood disorder 05/07/2013 Overview (09/27/2021): ICD10 Update Auto Replacement Depression complicating , antepartum Overview (09/27/2021): Previous suicide attempt 04/[address] Colbert Multiple meds - dexmethyphenidate , Gabapentin, seroquel Seen q 2 wk. Stable at this time Last Assessment & Plan: Previous suicide attempt 04/[address] Colbert Multiple meds - dexmethyphenidate , Gabapentin, seroquel Seen q 2 wk. Stable at this time Insulin overdose with S/I in 2013, insulin was then given under supervision 05/01/2013 Suicidal ideation 05/01/2013 Hyperlipidemia 09/04/2011 Low back pain 11/14/2010 Polycystic ovaries with irre gular periods and hirsutism s/p bilateral tubal ligation 01/21/2008 Type 2 diabetes mellitus 02/15/2005 Encounters Date Type Department Care Team Description 12/13/2023 [place] [address] Kristi Caicedo APRN from Last 3 Months Immunizations Name Administration Dates Next Due Influenza PF, Split 03/04/2012,03/16/2010 Influenza Quadrivalent, Preservative Free 2013 Influenza Unspecified Formulation 02/06/2011 Tdap (Adacel, Boostrix) 04/09/2014,09/20/2011 Family History Medical History Relation Comments Type 1 Diabetes Brother Relation Status Comments Brother Social History Tobacco Use Types Packs/Day Years Used Date Smoking Tobacco: Every Day Cigarettes Smokeless Tobacco: Never Tobacco Cessation:Ready to Q uit: No; Counseling Given: No Comments:marijuana occasionally Alcohol Use Standard Drinks/Week Comments Not Currently 0 (1 standard drink = 0.6 oz pur e alcohol) Sex and Gender Information Value Date Recorded Sex Assigned at Not on file Gender Identity Not on file Sexual Orientation Not on file Last Filed Vital Signs Vital Sign Reading Time Taken Comments Blood Pressure 126/77 09/06/2023 12:22 PM EDT Pulse 108 09/06/2023 12:22 PM EDT Temperature 37 ??C (98.6 ??F) 09/06/2023 12:22 PM EDT Respiratory Rate 18 09/29/2021 11:30 AM EDT Oxygen Saturation 96% 09/06/2023 12:22 PM EDT Inhaled Oxygen Concentration - - Weight 77.2 kg (170 lb 3.2 oz) 09/06/2023 12:22 PM EDT Height 152.4 cm (5') 09/06/2023 12:22 PM EDT Body Mass Index 33.24 09/06/2023 12:22 PM EDT Plan of Treatment Upcoming Encounters Date Type Department Care Team (Late st Contact Info) Description 02/21/2024 1:40 PM EDT Office [place] [address] Kristi Caicedo APRN [facility] [address] Health Maintenance Due Date Last Done Comments CT Colonography 1977 Colonoscopy 1977 Colorectal Cancer Screening 1977 FIT DNA 1977 FIT 1977 Sigmoidoscopy (10 year) with FIT yearly 1977 Sigmoidoscopy 1977 Pneumococcal Vaccine: At-Ris k 5-64yrs (1 of 2 - PCV) 07/16/1983 DM Opthalmology Exam 07/16/1987 HIV screen 07/16/1995 Hepatitis C Screening 07/16/1995 Hepatitis B vaccine (0-59 yrs) (1) 1996 HPV test 07/16/2007 PAP Smear 07/16/2007 Breast Cancer Share Decision Needed 2017 Breast Cancer screening 2017 Covid-19 Vaccine (1 - 2022-2 4 season) 2023 Influenza (Flu) vaccine (1 o f 1 - Influenza standard series) 12/29/2023 02/22/2014, 03/04/2012, 02/06/2011, Additional history exists DM Hemoglobin A1c 6 month 03/08/20242023, 03/23/2022, 09/27/2021, Additional history exists Tetanus/Diphtheria/Pertussis Vaccines (3 - Td or Tdap) 04/09/2024 04/09/2014, 09/20/2011 DM Creatinine yearly 09/05/2024 09/06/2023, 09/29/2021, 09/28/2021, Additional history exists DM Urine Microalbumin yearly 09/05/202401/2024, 03/23/2022, 05/23/2020 Lipid Screening 09/05/2028 09/06/2023 Medical Devices Implanted Type Area Narrative Writer Device Identifier Shelf Expiration Date Model / Serial / Lot Screw 4.5x26mm Osvaldo Ft Ss Lc Dcp ([id number]) (Autoreq) - [id number] Implanted:Qty: 3 on 09/28/2021 by Geronimo Giron MD at [facility] IMPLANTS Right: Arm [place] JOHN [id number] / / Screw 4.5x28mm Osvaldo Ft Ss Lc Dcp ([id number]) (Autoreq) - [id number] Implanted:Qty: 2 on 09/28/2021 by Geronimo Giron MD at [facility] IMPLANTS Right: Arm [place] OJHN [id number] / / Screw 4.5x30mm Osvaldo Ft Ss Lc Dcp ([id number]) (Autoreq) - [id number] Implanted:Qty: 1 on 09/28/2021 by Geronimo Giron MD at [facility] IMPLANTS Right: Arm [place] JOHN 214.830 / / Screw 2.7x18mm Osvaldo Ss Lcp ([id number]) (Autoreq) - [id number] Implanted:Qty: 1 on 09/28/2021 by Geronimo Giron MD at [facility] IMPLANTS Right: Arm [place] JOHN [id number] / / Plate [id number] Narrow 9 Hole Comp Lck Ss Lc Dcp ([id number]) (Autoreq) - [id number] Implanted:Qty: 1 on 09/28/2021 by Geronimo Giron MD at [facility] IMPLANTS Right: Arm [place] JOHN [id number] / / Procedures Procedure Name Priority Date/Time Associated Diagnosis Comments U ALBUMIN/CRE RATIO Routine 09/06/2023 1 :53 PM EDT Type 2 diabetes mellitus with hyperglycemia, with long-term current use of insulin LIPID PANEL (REFLEX DIRECT LDL) Routine 09/06/2023 1:36 PM EDT Mixed hyperlipidemia COMPREHENSIVE METABOLIC PANEL Routine 09/06/2023 1:36 PM EDT Type 2 diabetes mellitus with hyperglycemia, with long-term current use of insulin HEMOGLOBIN A1C Routine 09/06/2023 1:36 PM EDT Type 2 diabetes mellitus with hyperglycemia, with long-term current use of insulin from Last 3 Months or Most Recently Relevant to Health Maintenance Results * U Albumin/Cre Ratio (09/06/2023 1:53 PM EDT) Albumin / Creatinin Ratio, Urine Not Calculated 0 - 29 mcg/mg Cr [facility] Comment: Reference Ranges: <30 mcg/mg: Normal 30-300 mcg/mg: Moderately increased albuminuria.* >300 mcg/mg: Severely increased albuminuria. * ACEI or ARB recommended if diabetic; suggested if BP>130/80 without diabetes ACEI or ARB strongly recommended if diabetic; recommended if BP>130/80 without diabetes Two of three specimens collected within a 3 to 6 month period should be abnormal before considering a patient to have albuminuria. Transient causes: exercise, fever, infection, CHF, marked hyperglycemia or hypertension. Persistent albuminuria indicates CKD and is an independent risk factor for ASCVD. ADA Standards of Medical Care in Diabetes-2016; KDIGO: Kidney International Supplements (2012) 2, 357? 362 Albumin, Urine <3.0 mg/L [facility] Creatinine, Urine 91 mg/dL [facility] Urine 09/06/2023 1:53 PM EDT 09/06/2023 2:09 PM EDT Narrative Resulting Agency Comment Spec In Lab Kristi Caicedo KNOCKOUT MAN URINE ORDERABLE S [facility] [place] [address] * (ABNORMAL) Hemoglobin A1c (09/06/2023 1:36 PM EDT) Pathologist [facility] Hemoglobin A1c 7.7(H) 4.3 - 5.6 % [facility] Comment: Reference Range: 4.3 - 5.6% 5.7 - 6.4% - Increased Risk of Developing Diabetes Mellitus >= 6.5% - Consistent with diagnosis of Diabetes Mellitus In the absence of hyperglycemia (i.e. plasma glucose > 200 mg/dL) or classic symptoms of hyperglycemia a repeat measurement of HbA1c should be performed on a separate sample to confirm the diagnosis. Diagnosis and Classification of Diabetes Mellitus, Diabetes Care 2013; 36: Suppl. 1, S67-68 Estimated Average Glucose 174 mg/dL [facility] Blood 09/06/2023 1:36 PM EDT 09/06/2023 2:01 PM EDT Narrative Resulting Agency Comment Spec In Lab Kristi Caicedo APRN CHEMISTRY ORDER YOON [facility] [place] [address] * Lipid Panel (Reflex Direct LDL) (09/06/2023 1:36 PM EDT) [facility] Cholesterol, Total 209 mg/dL [facility] Comment: Desirable: ? <200 mg/dL Borderline High: 200-239 mg/dL Higher: ?>jk=343 mg/dL Triglyceride 214 mg/dL [facility] Comment: Normal: ?<150 mg/dL Borderline High: 150-199 mg/dL High: ?200-499 mg/dL Very High: ? >wk=153 mg/dL HDL Cholesterol 58 mg/dL [facility] Comment: Females: High Risk: <50 mg/dL Males: High Risk: <40 mg/dL LDL Cholesterol 108 mg/dL [facility] Comment: Desirable: ? <100 mg/dL Above Desirable: 100-129 mg/dL Borderline High: 130-159 mg/dL High: ?160-189 mg/dL Very High: ? >re=506 mg/dL Lipid Interpretation See Note [facility] Comment: It is important to review the results of your lipid panel with your health care provider. You can compare your lipid results to the ranges below and whether they are in the desirable range. These ranges are only meant to be used for people without known cardiac disease, history of stroke, or peripheral vascular disease (blockages in the leg arteries or diabetes). If ??you have one of these conditions, your desirable LDL-C (bad cholesterol) will likely be even lower. ACC/AHA Guidelines (most recently Yadiel et al. [facility] 01/30/22): For individuals with atherosclerotic cardiovascular disease (ASCVD)or LDL >qy=563 mg/dL, use a high-intensity statin (40-80 mg atorvastatin or 20-40 mg rosuvastatin with goal >or=50% LDL reduction) For individuals with diabetes, age 40-75 without ASCVD, moderate-intensity statin (goal 30-49% LDL reduction); consider high intensity statin for those with increased risk. For adults without diabetes or ASCVD, aged 40-75 with LDL 70-189 mg/dL, estimate 10 year ASCVD risk with smartphrase .ASCVDRISK or Dynamed Decisions. If 10 year risk is 7.5%-19.9% (intermediate risk), consider moderate intensity statin based on risk enhancers and patient preference. Consider coronary artery calcium test (CT) if there is concern regarding the benefit of a statin. If ten year risk is >or=20%, initiate high-intensity statin. Evaluate for secondary causes of triglycerides >500 mg/dL or LDL >190 mg/dL. Lifestyle modification is a critical component of ASCVD risk reduction. If not reaching LDL goals on maximally tolerated statin, consider ezetimibe and/or a PCSK9 inhibitor: Target for primary prevention: LDL<100 Target for those with ASCVD or diabetes and 10-year risk >or=20%: LDL<70 Target for those with very high risk ASCVD: LDL<55 (Very high risk being the presence of 2 or more of: recent acute coronary syndrome, past myocardial infarction, ischemic stroke, symptomatic peripheral artery disease) Blood 09/06/2023 1:36 PM EDT 09/06/2023 2:01 PM EDT Narrative Resulting Agency Comment Spec In Lab Kristi Caicedo KNOCKOUT MAN CHEMISTRY ORDER YOON [facility] [place] [address] * Comprehensive metabolic panel (non-fasting) (09/06/2023 1:36 PM EDT) Glucose 80 65 - 199 mg/dL [facility] Comment:Diabetes: >=200 mg/d L plus symptoms Blood Urea Nitrogen 8 8 - 18 mg/dL [facility] Creatinine 1.13 0.70 - 1.20 mg/dL [facility] Sodium 139 135 - 145 mmol/L [facility] Potassium 4.1 3.5 - 5.0 mmol/L [facility] Comment: Please note: ??Patients with WBC >100,000 may have falsely elevated Potassium levels. ??For accurate Potassium quantification in these patients send serum separator tube (gold top) for subsequent determinations. ??Contact the Clinical Chemistry Laboratory if there are any questions. Chloride 101 98 - 107 mmol/L [facility] Carbon Dioxide 25 22 - 31 mmol/L [facility] Anion Gap 13 5 - 15 mmol/L [facility] Calcium 10.4 8.5 - 10.5 mg/dL [facility] Protein, Total 7.4 6.1 - 8.0 g/dL [facility] Albumin 4.6 3.2 - 5.2 g/dL [facility] Aspartate Aminotransferase 16 0 - 30 unit/L [facility] Alanine Aminotransferase 19 0 - 30 unit/L [facility] Alkaline Phosphatase 89 35 - 105 unit/L [facility] Bilirubin, Total 0.4 0.2 - 1.3 mg/dL [facility] Est Glomerular Filtration Rate 61 >=60 mL/min/1. 73 m?? [facility] Comment: This patient's estimated GFR was calculated using the 2020 CKD-EPI equation. The estimated GFR can vary from the measured GFR by up to 30% in the absence of rapidly changing kidney function. Assessment of the estimated GFR is not appropriate when creatinine concentrations are rapidly changing. For clinical situations in which a more precise estimate of GFR is necessary, consider alternative methods of GFR estimation such as a 24-hour urine creatinine clearance. Assignment of CKD stage 1-5 for patients with an eGFR near the transition point between stages may be based on clinical assessment of muscle mass and symptoms in addition to eGFR. Blood 09/06/2023 1:36 PM EDT 09/06/2023 2:01 PM EDT Narrative Resulting Agency Comment Spec In Lab Kristi Caicedo KNOCKOUT MAN CHEMISTRY ORDER YOON [facility] [place] [address] from Last 3 Months or Most Recently Relevant to Health Maintenance Advance Directives * Attempt Cardiopulmonary Resuscitation - Inpatient (Latest Code Status on File) Date Activated Date Inactivated Comments 09/26/2021 3:15 PM 09/29/2021 6:31 PM Question Answer Comments Code Status decision made by: Patient Care Teams Roll Edge Stitcher Hand Relationship Specialty Start Date End Date Pooja, Jossie J, KNOCKOUT MAN [address] [place] [address] PCP - General Family Medicine 04/19/20
--- OUTSIDE RECORDS SUMMARY | 2024-02-14 15:15 | XMS_ITS | Encounter Summary ---
Author Organization [facility] [place] [address] Care Team Providers Care Mercury Cracking Tester Name Role Phone Jossie Patton APRN Primary Care Provider [phone] Reason for Visit * Reason Onset Date Comments Medication Refill 12/13/2023 Encounter Details Date Type Department Care Team (Late st Contact Info) Description 12/13/2023 Ref[place] [phone] Kristi Caicedo [facility] [place] [place] [address] Social History Tobacco Use Types Packs/Day Years [...] 1:40 PM EDT Office [place] [phone] Kristi Caicedo [facility] [place] [address] documented as of this encounter Visit Diagnoses Not on filedocumented in this encounter Care Teams Mercury Cracking Tester Relationship Specialty Start Date End Date Jossie Patton APRN [address] [place] [address] PCP - General Family Medicine 04/19/20 documented as of this encounter
--- OUTSIDE RECORDS SUMMARY | 2024-02-14 15:15 | XMS_ITS ---
Author Organization Unknown Address [address] [place] [phone] Phone Care Team Providers Care Domestic Travel Consultant Name Role Phone ELIZABETH Adhikari Attending Unavailable Social History Type Status Start Date End Date Code Code Syst em Smoking History Current every day smoker 197019133 SNOMED CT Sex Female Medications Medication Start Date End Date Route Frequency Dose Code Code System Medication Instructions Home Meds predniSONE 20MG Oral Tablet 01/07/2023 06/23/2023 ORAL DAILY 2 TABLET 107422 RxNorm TAKE 2 TABLET ORAL DAILY Percocet 5MG-325MG Oral Tablet 01/07/2023 06/23/2023 ORAL NEEDED EVERY 4 HOURS 1 TABLET 9741155 RxNorm TAKE 1 TABLET ORAL NEEDED EVERY 4 HOURS Ondansetron 4MG Oral Tablet 06/23/2023 01/31/2024 ORAL NEEDED EVERY 6 HOURS 4 MILLIGRAM S 262596 RxNorm TAKE 4 MILLIGRAM S ORAL NEEDED EVERY 6 HOURS SEROquel 100MG Oral Tablet 06/23/2023 11/11/2023 ORAL BEDTIME 150 MILLIGRAM S 779054 RxNorm TAKE 150 MILLIGRAM S ORAL BEDTIME Spironolactone 100MG Oral Tablet 06/23/2023 Unknown ORAL DAILY 100 MILLIGRAM S 839178 RxNorm TAKE 100 MILLIGRAM S ORAL DAILY Vraylar 6MG Oral Capsule 06/23/2023 11/11/2023 ORAL DAILY 6 MILLIGRAM S 9851410 RxNorm TAKE 6 MILLIGRAM S ORAL DAILY LaMICtal 150MG Oral Tablet 06/23/2023 11/11/2023 ORAL DAILY 1 TABLET RxNorm TAKE 1 TABLET ORAL DAILY HumaLOG 100U/1ML Injection Solution 06/23/2023 Unknown INJECTIO N DAILY 1 unit(s) 086209 RxNorm 1 EACH INJECTION DAILY Augustin 06/23/2023 Unknown ORAL WEEKLY 15 MILLIGRAM S [...] Status Code Code System SLURRED SPEECH active 012066287 SNOME D-CT DIABETES 2 active 97069704 SNOMED-CT BIPOLAR DISORDER active 27413750 SNO MED-CT PTSD 09/19/2021 resolved 28228375 SNOMED-CT FIBROMYALGIA 09/19/2021 resolved 096401788 SNOMED -CT DIABETES 2 07/05/2021 resolved 43901754 SNOMED-C T FALL FROM STAIRS 06/23/2023 resolved 180291073 SN OMED-CT CLOSED FRACTURE OF RIGHT HUMERUS 06/23/2023 resolved 16854805330780085 SNOMED-CT HTN 09/19/2021 resolved 39688783 SNOMED-CT BIPOLAR DISORDER 09/19/2021 resolved 49331795 SN OMED-CT Allergies and Adverse Reactions Allergy Substance Reaction Severity Start Date Concern Status Co de Code System LISINOPRIL Active 64700 RxNorm AMBIEN Altered Mental Status (SNOMED-CT: 192349329) Active 685474 RxNorm Plan of Treatment Lab Draw 07/30/2020 Lab Draw 05/28/2020 US ABDOMEN LIMITED 1 ORGAN 05/06/2023 US RIGHT UPPER QUAD 07/05/2021 Encounters Encounter Diagnosis Start Date Code Code Sys tem Slurred speech 06/22/2023 SNOMED-CT Personal Care Team Section Performer Name Performer Role Active Date Inactive Da te
--- OUTSIDE RECORDS SUMMARY | 2024-02-14 15:15 | XMS_ITS | Encounter Summary ---
Author Organization [facility] [place] [address] Care Team Providers Care Deflash And Wash Operator Name Role Phone Jossie Patton APRN Primary Care Provider [phone] Reason for Visit * Reason Comments Medication Refill Encounter Details Date Type Department Care Team (Late Contact Info) Description 09/06/2023 Ref[place] [phone] Kristi Caicedo [facility] [place] [place] [address] Social History Tobacco Use Types Packs/Day Years [...] 1:40 PM EDT Office [place] [phone] Kristi Caicedo [facility] [place] [address] documented as of this encounter Visit Diagnoses Not on filedocumented in this encounter Care Teams Deflash And Wash Operator Relationship Specialty Start Date End Date Jossie Patton APRN [address] [place] [address] PCP - General Family Medicine 04/19/20 documented as of this encounter
--- OUTSIDE RECORDS SUMMARY | 2024-02-14 15:16 | XMS_ITS | Encounter Summary ---
[place] [address] Care Team Providers Care Chemist Physical Name Role Phone Pooja, Jossie Gabrielle GARCIA Primary Care Provider [phone] Reason for Visit * Reason Onset Date Comments Prior Authorization 05/25/2022 Encounter Details Date Type Department Care Team (Late st Contact Info) Description 05/25/2022 Tele[place] [phone] Kaia Farias Prior Authorization Social History Tobacco Use Types Packs/Day Years [...] on file documented as of this encounter Miscellaneous Notes * Telephone Encounter - Kaia Farias - 05/29/2022 10:52 AM EST Previous Medications Tried Medication: Trulicity 01/2021 - 04/2022 No longer taking A1c 10.0 (05/23/2020) A1c 11.9 (09/27/2021) Medication: Glimepiride 04/2020 - 02/2022 No longer taking Medication: Metformin 04/2014 - present Medication: Victoza 04/2019 - 10/2020 Makes her vomit * Telephone Encounter - Kaia Farias - 05/29/2022 10:51 AM EST Images from the original note were not included. Medication Prior Authorization Sascha Medication name/dose/directions: Mounjaro 7.5mg/0.5mL - inject once weekly Rationale for request: Type II DM (E11.65) Health plan: [place] Medicaid ([facility]) Larose: [id number] Authorizing provider relations representative name: Martha Sent to health plan on: 05/29/22 PA Outcome: PA Denial Quantity approved: Authorization number: [id number] Start date: End date: * Telephone Encounter - Kaia Farias - 05/25/2022 8:21 AM EST Images from the original note were not included. Received PA for mounjaro 7.5mg/0.5mL Will complete as soon as possible documented in this encounter Plan of Treatment Upcoming Encounters Date Type Department Care Team (Late st Contact Info) Description 02/21/2024 1:40 PM EDT Office [place] [address] Kristi Caicedo APRN [facility] [address] documented as of this encounter Visit Diagnoses Not on filedocumented in this encounter Care Teams Chemist Physical Relationship Specialty Start Date End Date Jossie Patton APRN [address] [place] [address] PCP - General Family Medicine 04/19/20 documented as of this encounter
--- OUTSIDE RECORDS SUMMARY | 2024-02-14 15:16 | XMS_ITS | Encounter Summary ---
Author Organization [facility] [place] [address] Care Team Providers Care Groover Operator Name Role Phone Jossie Patton APRN Primary Care Provider [phone] Encounter Details Date Type Department Care Team (Late st Contact Info) Description 05/16/2022 Orders [place] [phone] Mark Brown MD [facility] [place] [address] Social History Tobacco Use Types Packs/Day Years [...] 1:40 PM EDT Office [place] [address] Kristi Caicedo APRN [facility] [place] [address] documented as of this encounter Visit Diagnoses Not on filedocumented in this encounter Care Teams Groover Operator Relationship Specialty Start Date End Date Jossie Patton APRN [address] [place] [address] PCP - General Family Medicine 04/19/20 documented as of this encounter
--- OUTSIDE RECORDS SUMMARY | 2024-02-14 15:16 | XMS_ITS | Encounter Summary ---
[place] [address] Care Team Providers Care Family Medicine Chair Name Role Phone Jossie Patton Gabrielle GARCIA Primary Care Provider [phone] Reason for Visit * Reason Onset Date Comments Prior Authorization 08/10/2022 Encounter Details Date Type Department Care Team (Late st Contact Info) Description 08/10/2022 Tele[place] [phone] Kaia Farias Prior Authorization Social History Tobacco [...] * Telephone Encounter - Kaia Farias - 08/10/2022 11:21 AM EDT Images from the original note were not included. Medication Prior Authorization Sascha Medication name/dose/directions: [employer] Guardian [employer] Sensors Rationale for request: Type II DM (E11.65) Health plan: [place] Medicaid (Fax) Larose: [phone] Authorizing real estate representative name: Martha Sent to health plan on: 08/10/22 PA Outcome: PA Denial Quantity approved: Authorization number: [id number] Start date: End date: documented in this encounter Plan of Treatment Upcoming Encounters Date Type Department Care Team (Late st Contact Info) Description 02/21/2024 1:40 PM EDT Office [place] [address] [facility] [place] [address] documented as of this encounter Visit Diagnoses Not on filedocumented in this encounter Care Teams Family Medicine Chair Relationship Specialty Start Date End Date Jossie Patton APRN [address] [place] [address] PCP - General Family Medicine 04/19/20 documented as of this encounter
--- OUTSIDE RECORDS SUMMARY | 2024-02-14 15:16 | XMS_ITS | Encounter Summary ---
[place] [address] Care Team Providers Care Bicycle Fitter Name Role Phone Jossie Patton Gabrielle GARCIA Primary Care Provider [phone] Reason for Visit * Reason Onset Date Comments Pump/sensor 05/16/2022 Encounter Details Date Type Department Care Team (Late st Contact Info) Description 05/16/2022 Telephone [place] [phone] Kaia Farias Pump/sensor Social History Tobacco Use Types Packs/Day Years [...] * Telephone Encounter - Kaia Farias - 06/01/2022 2:22 PM EST Faxed 05/23 * Telephone Encounter - Kaia Farias - 05/21/2022 10:36 AM EST CMN from [employer]. Filled out. Kristi Caicedo will sign. Secretaries will fax. * Telephone Encounter - Kaia Farias - 05/16/2022 10:51 AM EST Received CMN from [employer] Will complete as soon as possible documented in this encounter Plan of Treatment Upcoming Encounters Date Type Department Care Team (Late st Contact Info) Description 02/21/2024 1:40 PM EDT Office [place] [address] Kristi Caicedo APRN [facility] [place] [address] documented as of this encounter Visit Diagnoses Not on filedocumented in this encounter Care Teams Bicycle Fitter Relationship Specialty Start Date End Date Jossie Patton APRN [address] [place] [address] PCP - General Family Medicine 04/19/20 documented as of this encounter
--- OUTSIDE RECORDS SUMMARY | 2024-02-14 15:16 | XMS_ITS | Encounter Summary ---
[place] [address] Care Team Providers Care Straw Baler Name Role Phone Jossie Patton Gabrielle GARCIA Primary Care Provider [phone] Reason for Visit * Reason Onset Date Comments Prior Authorization 03/26/2022 Encounter Details Date Type Department Care Team (Late st Contact Info) Description 03/26/2022 Telephone [place] [phone] Kaia Farias Prior Authorization Social History Tobacco [...] * Telephone Encounter - Kaia Farias - 04/06/2022 7:58 AM EST Images from the original note were not included. * Telephone Encounter - Kaia Farias - 04/05/2022 10:45 AM EST Appeal letter routed [id number] * Telephone Encounter - Kaia Farias - 03/30/2022 7:35 AM EST Images from the original note were not included. Still Denying after addition information and reiterating patient has taken both Victoza and Trulicity as well as patient's A1c * Telephone Encounter - Kaia Farias - 03/26/2022 1:17 PM EST Previous Medications Tried Medication: Victoza Medication: Metformin Medication: Trulicity Medication: Glimepiride * Telephone Encounter - Kaia Farias - 03/26/2022 1:16 PM EST Images from the original note were not included. Medication Prior Authorization Echt Medication name/dose/directions: Mounjaro 7.5mg/0.5mL - once weekly Rationale for request: Type II DM (E11.65) Health plan: [place] Medicaid ([facility]) Larose: [id number] Authorizing labor union business representative name: Martha Sent to health plan on: 03/26/22 Health plan decision: Denied Quantity approved: Authorization number: [id number] Start date: End date: * Telephone Encounter - Kaia Farias - 03/26/2022 7:35 AM EST Images from the original note were not included. Received PA for mounjaro 7.5mg/0.5mL Will complete as soon as possible documented in this encounter Plan of Treatment Upcoming Encounters Date Type Department Care Team (Late st Contact Info) Description 02/21/2024 1:40 PM EDT Office Visit [place] [address] Kristi Caicedo APRN [facility] [place] [address] documented as of this encounter Visit Diagnoses Not on filedocumented in this encounter Care Teams Straw Baler Relationship Specialty Start Date End Date Jossie Patton APRN [address] [place] [address] PCP - General Family Medicine 04/19/20 documented as of this encounter
--- OUTSIDE RECORDS SUMMARY | 2024-02-14 15:16 | XMS_ITS | Encounter Summary ---
Author Organization [facility] [place] [address] Care Team Providers Care Grade And Center Marker Name Role Phone PoojaJossie karimi Gabrielle GARCIA Primary Care Provider [phone] Encounter Details Date Type Department Care Team (Late st Contact Info) Description 10/29/2022 Refill [place] [phone] Alexandr Deras RN Social History Tobacco Use Types Packs/Day Years [...] encounter Miscellaneous Notes * Telephone Encounter - Alexandr Deras RN - 10/29/2022 10:05 AM EDT Patient left voicemail requesting a refill of he pen needles to [facility] in [place], [place]. documented in this encounter Plan of Treatment Upcoming Encounters Date Type Department Care Team (Late st Contact Info) Description 02/21/2024 1:40 PM EDT Office [place] [phone] Kristi Caicedo APRN [facility] [address] [place], [place] [phone] documented as of this encounter Visit Diagnoses Not on filedocumented in this encounter Care Teams Grade And Center Marker Relationship Specialty Start Date End Date Jossie Patton APRN [address] [place] [address] PCP - General Family Medicine 04/19/20 documented as of this encounter
--- OUTSIDE RECORDS SUMMARY | 2024-02-14 15:16 | XMS_ITS | Encounter Summary ---
Author Organization [facility] Address [facility] [place] [address] Care Team Providers Care Lithographic Press Feeder Name Role Phone Jossie Patton Gabrielle GARCIA Primary Care Provider [phone] Encounter Details Date Type Department Care Team (Latest Contact Info) Description 03/16/2022 1:50 PM EST - 03/16/2022 11:59 PM EST Hospital Encounter XRay at [address] [place] [address] Geronimo Giron MD [facility] [place] [address] Closed fracture of shaft of right humerus with routine healing, unspecified fracture morphology, subsequent encounter Discharge Disposition: Home Social History Tobacco Use Types Packs/Day Years [...] on file documented as of this encounter Medications at Time of Discharge Medication Sig Dispensed Refills Start Date End Date QUEtiapine (SEROquel) 100 mg Tablet Take 100 mg by mouth daily. She reports she is working on reduced dose. 03/05/2022 Acetylcysteine 600 mg Capsule TAKE 2 CAPSULES BY MOUTH TWICE A DAY NEEDED 07/07/2021 clotrimazole (Mycelex) 10 mg Edu HOLD 1 EDU IN MOUTH FIVE TIMES A DAY 05/11/2021 nystatin (Mycostatin) 100,000 unit/mL Suspension TAKE 5 ML BY MOUTH 4 TIMES A DAY-- SWISH AND SWALLOW 05/15/2021 ondansetron (Zofran) 4 mg Tablet Take 4 mg by mouth every 6 hours as needed. 06/27/2021 naloxone (Narcan) 4 mg/actuation [place], Non-Aerosol SPRAY 1 SPRAY INTO BOTH NOSTRILS NEEDED FOR SUSPECTED OVERDOSE 09/21/2021 albuteroL 90 mcg/actuation HFA Aerosol Inhaler INHALE 1 TO 2 PUFFS EVERY 4 TO 6 HOURS NEEDED FOR WHEEZING 08/03/2019 diclofenac (Voltaren) 1 % Gel APPLY A SMALL AMOUNT TO SKIN THREE TIMES A DAY NEEDED FOR PAIN 08/02/2021 prazosin (Minipress) 1 mg Capsule TAKE 1 CAPSULES BY MOUTH FOR 2 DAYS THEN INCREASE TO 2 CAPSULES AT NIGHT (D/C CLONIDINE MONITOR FOR BLOOD PRESSURE DAILY) 08/12/2021 Keto-Diastix Strip See Admin Instructions. 06/28/2021 Vraylar 6 mg Capsule Take 1 capsule by mouth daily. 3 mg 08/22/2021 labetaloL (Normodyne) 200 mg Tablet Take 200 mg by mouth Twice daily. 05/16/2014 glucagon, Human Recombinant, (Glucagon Emergency Kit, human,) 1 mg Recon Soln Inject 1 mg into the muscle as needed. Needs refill 05/08/2014 amLODIPine (Norvasc) 10 mg Tablet Take 10 mg by mouth Daily. 07/20/2019 blood sugar diagnostic strips (OneTouch Verio test strips) Strip USE TO CHECK BLOOD GLUCOSE TWICE DAILY DX E11.9 06/25/2019 Blood-Glucose Meter Misc USE TO CHECK BLOOD GLUCOSE TWICE DAILY DX E11.9 06/25/2019 cholecalciferol, Vitamin D3, 50 mcg (2,000 unit) Capsule Take 1 tablet by mouth Daily. 04/07/2019 cyclobenzaprine (Flexeril) 10 mg Tablet TAKE 1 TABLET BY MOUTH THREE TIMES A DAY NEEDED 09/07/2019 irbesartan (AVAPRO) 150 mg Tablet Take 150 mg by mouth Daily. 08/18/2019 spironolactone (ALDACTONE) 50 mg Tablet 09/26/2021 03/23/2022 Trulicity 1.5 mg/0.5 mL Pen Injector Inject 0.5 mLs subcutaneously once a week. 6 mL 02/08/2022 03/28/2022 oseltamivir (Tamiflu) 75 mg Capsule TAKE 1 CAPSULE BY MOUTH TWICE A DAY FOR FIVE DAYS 07/26/2021 02/18/2023 Insulin Tresiba FlexTouch U-200 200 unit/mL (3 mL) Insulin PenIndications:type 2 diabetes mellitus INJECT 30-60 UNITS SUBCUTANEOUSLY NIGHTLY. INDICATIONS: TYPE 2 DIABETES MELLITUS 18 mL 3 09/14/2021 03/23/2022 clonazePAM (KlonoPIN) 1 mg Tablet TAKE 1 TABLET BY MOUTH ONCE DAILY 1 HOUR PRIOR TO BED NEEDED 08/25/2021 09/06/2023 ondansetron ODT (Zofran-ODT) 4 mg Tablet, Rapid Dissolve 08/23/2021 02/18/2023 gabapentin (Neurontin) 400 mg Capsule Take 400 mg by mouth 3 times daily. 08/11/2021 09/06/2023 humaLOG 100 unit/mL Solution INJECT 120-150 UNITS SUBCUTANEOUSLY DAILY IN INSULIN PUMP 150 mL 3 08/14/2021 03/23/2022 glimepiride (AMARYL) 4 mg Tablet TAKE 1 TABLET BY MOUTH 2 TIMES DAILY. TO BE ABLE TO REDUCE INSULIN TO HALF DOSE OR TAPER DOWN INSTRUCTED 180 tablet 3 06/26/2021 03/23/2022 rosuvastatin (Crestor) 20 mg Tablet 03/20/2021 02/18/2023 busPIRone (Buspar) 10 mg Tablet Take 10 mg by mouth daily. 05/23/2021 09/06/2023 insulin needles, disposable, 31 gauge x 3/16 Needle 1 each by [facility].(Non-Drug; Combo Route) route daily. 90 each 3 01/31/2021 10/29/2022 ranitidine (ZANTAC) 150 mg Tablet Take 300 mg by mouth Twice daily. 02/18/2023 metFORMIN (GLUCOPHAGE) 1,000 mg Tablet Take 2,000 mg by mouth daily. 05/16/2014 03/23/2022 documented as of this encounter Plan of Treatment Upcoming Encounters Date Type Department Care Team (Late st Contact Info) Description 02/21/2024 1:40 PM EDT Office [place] [address] Kristi Caicedo APRN [facility] [place] [address] documented as of this encounter Procedures Procedure Name Priority Date/Time Associated Diagnosis Comments XR HUMERUS RIGHT Routine 03/16/2022 2:02 PM EST Closed fracture of shaft of right humerus with routine healing, unspecified fracture morphology, subsequent encounter documented in this encounter Results * XR Humerus Right (Generic) (03/16/2022 2:02 PM EST) Anatomical Region Laterality Modality Arm Right Digital Radiogra phy Impressions 03/16/2022 4:52 PM EST Continued healing of right humerus fracture. No hardware complication. I have personally reviewed the image(s) and the resident's interpretation and agree with the findings, Wanda Mcnamara MD at 03/16/2022 4:52 PM Thank you for letting us participate in the care of this patient. ??If you are a health care provider and have any questions regarding this report, please contact the number below. ??For patients who have questions please contact the health care assistant that requested your imaging first. ? Narrative 03/16/2022 4:52 PM EST EXAMINATION: XR HUMERUS RIGHT (GENERIC) CLINICAL HISTORY: s/p humerus orif (as entered by ordering provider in the order requisition) TECHNIQUE: AP and lateral views RIGHT humerus COMPARISON: Right humerus radiographs 02/02/2022 FINDINGS: Status post ORIF of right humeral shaft fracture with plates and screws. The hardware is intact, without screws backing out or periprosthetic fracture. There is increased bony bridging and callus reabsorption at the fracture site, there is decreased. The fracture lucency. Unchanged anatomic glenohumeral and elbow alignment. No focal soft tissue abnormality. No new fractures. No focal soft tissue abnormality. Procedure Note Wanda Mcnamara MD - 03/16/2022 EXAMINATION: XR HUMERUS RIGHT (GENERIC) CLINICAL HISTORY: s/p humerus orif (as entered by ordering provider in theorder requisition) TECHNIQUE: AP and lateral views RIGHT humerus COMPARISON: Right humerus radiographs 02/02/2022 FINDINGS: Status post ORIF of right humeral shaft fracture with plates and screws.The hardware is intact, without screws backing out or periprosthetic fracture. There is increased bony bridging and callus reabsorption at the fracturesite, there is decreased. The fracture lucency. Unchanged anatomic glenohumeraland elbow alignment. No focal soft tissue abnormality. No new fractures. Nofocal soft tissue abnormality. IMPRESSION Continued healing of right humerus fracture. No hardware complication. I have personally reviewed the image(s) and the resident's interpretationand agree with the findings, Wanda Mcnamara MD at 03/16/2022 4:52 PM Thank you for letting us participate in the care of this patient. If youare a health care provider and have any questions regarding this report,please contact the number below. For patients who have questions please contactthe health care assistant that requested your imaging first. Electronically signed by: Wanda Mcnamara MD, [facility]([phone]), at 03/16/2022 4:52 PM Geronimo Giron MD IMG DX ORDERABLES documented in this encounter Visit Diagnoses Diagnosis Closed fracture of shaft of right humerus with routine healing, unspecified fracture morphology, subsequent encounter documented in this encounter Care Teams Lithographic Press Feeder Relationship Specialty Start Date End Date Jossie Patton APRN [address] [place] [address] PCP - General Family Medicine 04/19/20 documented as of this encounter
--- OUTSIDE RECORDS SUMMARY | 2024-02-14 15:16 | XMS_ITS | Encounter Summary ---
Author Organization [facility] [place] [address] Care Team Providers Care Electrical Experimental Mechanic Name Role Phone Belle Pattonily Gabrielle GARCIA Primary Care Provider [phone] Encounter Details Date Type Department Care Team (Late st Contact Info) Description 05/18/2022 11:20 AM EST TH Visit (TeleHealth) [place] [address] Kristi Caicedo APRN [facility] [place] [address] Type 2 diabetes mellitus with hyperglycemia, with long-term current use of insulin (Primary Dx); Insulin pump in place Social History Tobacco Use Types Packs/Day Years [...] on file documented as of this encounter Patient Instructions * Patient Instructions* Kristi Caicedo APRN - 05/18/2022 11:20 AM EST Plan if pump malfunctions: You need to take pump off Give 90 units of Tresiba instead of the usual 52 daily. So if the pump malfunctions at noon. When you give the night dose please give 90 instead of 52. I am adding basal to your long acting. Give injections of humalog for food and corrections. For evergy 5 grams of carb give one unit of humalog For every 20 mg/dl above 150 give 1 unit of humalog. Example - when blood sugar is 190. You give 2 units for correction. 4. You have to be 24 hours at least from last tresiba before return to pump. Medications: Give your insulin/humalog before you eat. Check dexcom, determine carbs, give bolus and wait 15 minthen eat. No changes in pump. Continue Metformin 2000 once daily Tresiba 52 units daily at night. Try to get 4.5 or 3 mg for trulicity. Let me know if issues. After Jun 01 we can try for monjaro again. 3. Labs- please go get labs I sent to [facility] to complete. 4. Follow-up - schedule follow-up in [address] Roach, Dr. Oneal or me. documented in this encounter Progress Notes * Kristi Caicedo APRN - 05/18/2022 11:20 AM EST Name: Guzman Jean : 1975 PCP: Jossie Patton APRN Date: 05/18/22 Reason for visit: Guzman Jean is a 46 y.o. year old female with Diabetes TYPE 2referred by Jossie Patton for FOLLOW UP to the [facility] endocrine clinic for diabetes services. This visit was completed on the telehealth Patient verified Name and Date of . Patient reports she is in [place] location. Patient consents to the visit being on the telephone. Patient was seen [address] Roach. New to me. She is here today because her dog ate her pump and she needs education related to what to do when no longer on a pump or malfunction as this isnot the first time this has occurred. Type 2 diabetes with use of pump, tresiba (to reduce insuiln amount and needs in pump), metformin and trulicity -->Dr. Roach changed to Mounjaro start at 7.5mg and increased to 10mg at week 4. --> not covered and still on trulicity. Now issues finding 4.5mg and maybe also 3 with back orders. HDL- on crestor PCOS aldactone adjusted dose to 100mg. Has fibromalgia, bipolar. She Just reduced seroquel for sleep. WEIGHT [id number]. Right now 196. 5 feet tall. DOG ATE PUMP. Second one she has took. She went almost one week without pump. Went to ED dehydrated. Jarrod CARDOSO met and put 630G. She reports she needs plan for when pump not working and what to do today. She also wants to review GLP and what we will do with back order. Last 3 Hemoglobin A1Cs Lab Results Component Value Date HA1C 9.8 (H) 03/23/2022 HA1C 11.9 (H) 09/27/2021 HA1C 10.0 (H) 05/23/2020 Diabetes Diagnosis Date: diagnosed age 20. Diagnosed type 2. Brother has type 1 and is on pump. Medication Regimen for Diabetes Care: Metformin 2000 once daily Tresiba U-200 - 52 units at night - to reduce amount of insulin needed in pump Trulicity - was supposed to be at 4.5mg. And try to find 3.0. change to Monjaro but denied coverage. May 30 has second coverage. Can't take victoza - makes vomit. ?? Medtronic 670G insulin pump - uses Humalog - now on 630G Pump settings: ?? Basal: 12 am 2.00 7 am 2.10 Total basal 49.700 ?? ICR 1:5 ?? ISF 1:20 ?? BGT 12 am 100 (140) 5 am 100 (120) 8:30 pm 100 (140) ?? Glucose Monitoring: Dexcom G6 She just restarted a couple of days ago Average Blood sugar: last 3 days and without pump on has been elevated 277, 12% in range In range last night after starting pump. This am hiren to 250 with coffee with creme and sugar and she bolused after her coffee to bring down and came in range. Hypoglycemia Severe Hypoglycemia in Past: no 2 lows in last month in 50s and woke in night. Hyperglycemia History of DKA: Yes/dehydrate Had ketones at home. Recent ED Apr 2022. [facility]. Diet Following type of diet: none Carb counting: yes Last visit with buckle inspector: Jarrod Lord Recall: B- eggs and coffee Skip lunch Eats dinner. Not snacking Exercise Not exercising. History of Diabetes Related Complications and Prevention Eyes: Last Eye Exam:05/2021-and again august or september not scheduled next History of Diabetes Retinopathy: no Dental Care in last 6 months: yes using [employer] Kidney function: no nephropathy Last urine microalbumin: Latest Reference Range & Units 05/23/20 08:21 03/23/22 10:41 U Albumin Conc, Random mg/L <3.0 <3.0 On PHILIPPE/ARB:yes Donor Relations Associate: none Cardio: Patient heart attack in past: no No stroke Aspirin: no No data found. Last cholesterol: Latest Reference Range & Units 05/23/20 08:20 03/23/22 10:45 LDL Chol Direct mg/dL 96 151 Cholesterol medication: crestor Feet: History of Neuropathy: yes Current status of Neuropathy: some intermittent pain in legs and numbness in legs. Gabapentin in past. Communications Maintainer: not discussed Flu Vaccination: 2021 Pneumonia vaccine: COVID #4 shot Fall 2021 Smoker/tobacco use: Yes cigs pack a day Alcohol use: none On clonopin. Conception: Boyfriend is 78 and tubes are tied. Has not had intercourse in 5 years. No past medical history on file. Medications 03/23/22 0947 Medication Sig Taking? dulaglutide (Trulicity) 4.5 mg/0.5 mL Pen Injector Inject 0.5 mLs subcutaneously once a week. Indications: type 2 diabetes mellitus humaLOG 100 unit/mL Solution Inject up to 120-150 units subcutaneously daily via insulin pump spironolactone (Aldactone) 100 mg Tablet Take 1 tablet by mouth daily. metFORMIN (Glucophage) 1,000 mg Tablet Take 1 tablet by mouth 2 times daily. Insulin Tresiba FlexTouch U-200 200 unit/mL (3 mL) Insulin Pen Inject 50-60 Units subcutaneously nightly. Indications: type 2 diabetes mellitus QUEtiapine (SEROquel) 100 mg Tablet nightly as needed. Acetylcysteine 600 mg Capsule TAKE 2 CAPSULES BY MOUTH TWICE A DAY NEEDED clotrimazole (Mycelex) 10 mg Edu HOLD 1 EDU IN MOUTH FIVE TIMES A DAY nystatin (Mycostatin) 100,000 unit/mL Suspension TAKE 5 ML BY MOUTH 4 TIMES A DAY-- SWISH AND SWALLOW ondansetron (Zofran) 4 mg Tablet Take 4 mg by mouth every 6 hours as needed. oseltamivir (Tamiflu) 75 mg Capsule TAKE 1 CAPSULE BY MOUTH TWICE A DAY FOR FIVE DAYS naloxone (Narcan) 4 mg/actuation [place], Non-Aerosol SPRAY 1 SPRAY INTO BOTH NOSTRILS NEEDED FOR SUSPECTED OVERDOSE albuteroL 90 mcg/actuation HFA Aerosol Inhaler INHALE 1 TO 2 PUFFS EVERY 4 TO 6 HOURS NEEDED FORWHEEZING clonazePAM (KlonoPIN) 1 mg Tablet TAKE 1 TABLET BY MOUTH ONCE DAILY 1 HOUR PRIOR TO BED NEEDED diclofenac (Voltaren) 1 % Gel APPLY A SMALL AMOUNT TO SKIN THREE TIMES A DAY NEEDED FOR PAIN ondansetron ODT (Zofran-ODT) 4 mg Tablet, Rapid Dissolve prazosin (Minipress) 1 mg Capsule TAKE 1 CAPSULES BY MOUTH FOR 2 DAYS THEN INCREASE TO 2 CAPSULES AT NIGHT (D/C CLONIDINE MONITOR FOR BLOOD PRESSURE DAILY) Keto-Diastix Strip See Admin Instructions. Vraylar 6 mg Capsule Take 1 capsule by mouth daily. 3 mg gabapentin (Neurontin) 400 mg Capsule Take 400 mg by mouth 3 times daily. rosuvastatin (Crestor) 20 mg Tablet busPIRone (Buspar) 10 mg Tablet Take 10 mg by mouth daily. labetaloL (Normodyne) 200 mg Tablet Take 200 mg by mouth Twice daily. insulin needles, disposable, 31 gauge x 3/16 Needle 1 each by [facility].(Non-Drug; Combo Route) route daily. glucagon, Human Recombinant, (Glucagon Emergency Kit, human,) 1 mg Recon Soln Inject 1 mg into the muscle as needed. amLODIPine (Norvasc) 10 mg Tablet Take 10 mg by mouth Daily. blood sugar diagnostic strips (OneTouch Verio test strips) Strip USE TO CHECK BLOOD GLUCOSE TWICE DAILY DX E11.9 Blood-Glucose Meter Misc USE TO CHECK BLOOD GLUCOSE TWICE DAILY DX E11.9 cholecalciferol, Vitamin D3, 50 mcg (2,000 unit) Capsule Take 1 tablet by mouth Daily. cyclobenzaprine (Flexeril) 10 mg Tablet TAKE 1 TABLET BY MOUTH THREE TIMES A DAY NEEDED irbesartan (AVAPRO) 150 mg Tablet Take 150 mg by mouth Daily. ranitidine (ZANTAC) 150 mg Tablet Take 300 mg by mouth Twice daily. Allergies Allergen Reactions ??? Lisinopril Family History Problem Relation Age of Onset ??? 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 Lives boyfriend and daughter 8yo. ROS: General: Weight on lower end of where she has been according to pt. HEENT: Vision as outlined above. Respiratory: Denies shortness of breath at rest. Cardiac: Denies recent chest pain. Gastrointestinal: Denies any issues with bowel movements. : denies sexually active Urinary: Denies UTIs. No change in urinary symptoms. Extremities: Outlined in HPI. Endocrine: Outlined in HPI. Psych: Bipolar and reports ongoing treatment. OBJECTIVE There were no vitals taken for this visit. PHYSICAL EXAM: General: Alert and cooperative. No results found for this or any previous visit (from the past 24 hour(s)). ASSESSMENT: 1. Type 2 diabetes mellitus with hyperglycemia, with long-term current use of insulin Hemoglobin A1c Comprehensive metabolic panel (non-fasting) Lipid Panel (Reflex Direct LDL) Insulin Syringe-Needle U-100 (Insulin Syringe) 0.5 mL 29 gauge x 1/2 Syringe 2. Insulin pump in place This is a 46 yo female with type 2 diabetes poorly controlled. On pump, long acting, metformin, GLP. Plan for pump malfunction reviewed. She will replace basal rate with long acting insulin. Reviewed dose and also dose for rapid acting. Sending plan to jarrod fregoso. She is in same office as PCP.This was mostly an education visit. Precribed danna after she was unable to get trulicity. She will start with 7.5 and increase as outlined in HPI as Dr. Roach recommended. I am recommending this patient continue CGM for personal use. Patient is on an insulin pump: Diagnosis: Diabetes Mellitus Patient performs SMBG at least 4x per day Patient administers insulin via an insulin pump Patient frequently adjusts meal time insulin doses Patient needs a therapeutic CGM I plan to see this pt every 6 months following this initial prescription of the CGM to assess adherence to their CGM regimen and diabetes treatment plan. PLAN: Plan if pump malfunctions: 1. You need to take pump off 2. Give 90 units of Tresiba instead of the usual 52 daily. So if the pump malfunctions at noon. When you give the night dose please give 90 instead of 52. I am adding basal to your long acting. 3. Give injections of humalog for food and corrections. a. For evergy 5 grams of carb give one unit of humalog b. For every 20 mg/dl above 150 give 1 unit of humalog. Example - when blood sugar is 190. You give2 units for correction. 4. You have to be 24 hours at least from last tresiba before return to pump. Medications: Give your insulin/humalog before you eat. Check dexcom, determine carbs, give bolus and wait 15 minthen eat. No changes in pump. Continue Metformin 2000 once daily Tresiba 52 units daily at night. Try to get 4.5 or 3 mg for trulicity. Let me know if issues. After Jun 01 we can try for monjaro again. 3. Labs- please go get labs I sent to [facility] to complete. 4. Follow-up - schedule follow-up in [address] Roach, Dr. Oneal or me. Total time associated with visit: 50 min This includes lab order, pump review, time on telehealth with patient, plan for malfunction and educaiton reviewed and documentation. Kristi Caicedo, UYEN, BRICK PITCHER-BC, CDE Section of Endocrinology documented in this encounter Plan of Treatment Upcoming Encounters Date Type Department Care Team (Late st Contact Info) Description 02/21/2024 1:40 PM EDT Office Visit [place] [address] Kristi Caicedo APRN [facility] [place] [address] documented as of this encounter Visit Diagnoses Diagnosis Type 2 diabetes mellitus with hyperglycemia, with long-term current use of insulin- Primary Insulin pump in place Insulin pump status documented in this encounter Care Teams Electrical Experimental Mechanic Relationship Specialty Start Date End Date Jossie Patton APRN [address] [place] [address] PCP - General Family Medicine 04/19/20 documented as of this encounter
--- OUTSIDE RECORDS SUMMARY | 2024-02-14 15:16 | XMS_ITS | Encounter Summary ---
Author Organization [facility] [place] [address] Care Team Providers Care Formula Weigher Name Role Phone Jossie Patton Gabrielle GARCIA Primary Care Provider [phone] Encounter Details Date Type Department Care Team (Late st Contact Info) Description 05/17/2022 Refill [place] [phone] Alexandr Deras, RN Social History Tobacco Use Types Packs/Day [...] Telephone Encounter - Alexandr Deras RN - 05/17/2022 1:53 PM EST Patient left voicemail that she is unable to get her increased dose of Trulicity. She also says sheis having issues with her pump and is requesting a return call. She says she went to the ER last night. She reports her BGs have been in the 400s. Patient has Medtronic pump. Per their website, number for technical support is: option 1 Returned call to patient. She says her dog ate her pump or she misplaced it. She doesn't know any of her pump settings. She says her BG has been 300-HI. She went to the ER thinking she was in DKA. Was given a lot of fluids and is out of the hospital now. At this time she wants her pump setting sent over the [employer] portal (done) and to get back on the pump to see how she does. She also has continued to have poor control (didnot report specific numbers when pump was functioning) and wants an appointment. She will call backto make one soon. Regarding Trulicity she would like for us to send 3mg dose pens back in so she can at least get those. documented in this encounter Plan of Treatment Upcoming Encounters Date Type Department Care Team (Late st Contact Info) Description 02/21/2024 1:40 PM EDT Office [place] [address] Kristi Caicedo APRN [facility] [place] [address] documented as of this encounter Visit Diagnoses Not on filedocumented in this encounter Care Teams Formula Weigher Relationship Specialty Start Date End Date Jossie Patton APRN [address] [place] [address] PCP - General Family Medicine 04/19/20 documented as of this encounter
--- OUTSIDE RECORDS SUMMARY | 2024-02-14 15:16 | XMS_ITS | Encounter Summary ---
Author Organization [facility] [place] [address] Care Team Providers Care Project Systems Engineer Name Role Phone Belle Pattonily Gabrielle GARCIA Primary Care Provider [phone] Encounter Details Date Type Department Care Team (Late st Contact Info) Description 05/22/2022 [place] [id number] Alexandr Deras RN Social History Tobacco Use [...] Telephone Encounter - Alexandr Deras RN - 05/24/2022 9:17 AM EST May 24, 2022 Kristi Caicedo APRN to Me 9:08 AM Yes please cue up Mounjaro start at 7.5mg and increased to 10mg at week 4. You can make a 3 month supply. Thanks! Dariela * Telephone Encounter - Alexandr Deras RN - 05/22/2022 4:23 PM EST Patient left voicemail that [facility] in [place], [place] can get Mounjaro 7.5mg or 10mg. She is hoping tohave one of these sent in for a 3 month supply so she can take this instead of Trulicity given the widespread backorder on Trulicity. documented in this encounter Plan of Treatment Upcoming Encounters Date Type Department Care Team (Late st Contact Info) Description 02/21/2024 1:40 PM EDT Office [place] [address] Kristi Caicedo APRN [facility] [place] [address] documented as of this encounter Visit Diagnoses Not on filedocumented in this encounter Care Teams Project Systems Engineer Relationship Specialty Start Date End Date Jossie Patton APRN [address] [place] [address] PCP - General Family Medicine 04/19/20 documented as of this encounter
--- OUTSIDE RECORDS SUMMARY | 2024-02-14 15:16 | XMS_ITS | Encounter Summary ---
Author Organization [facility] [place] [address] Care Team Providers Care Skein Yarn Dyer Name Role Phone Pooja, Jossie Gabrielle GARCIA Primary Care Provider [phone] Reason for Visit * Reason Comments Follow-up Rt elbow/humerus fx s/p ORIF Encounter Details Date Type Department Care Team (Late st Contact Info) Description 03/16/2022 3:00 PM EST Office [place] [address] Geronimo Giron MD [facility] [place] [address] Closed fracture of shaft of right humerus with routine healing, unspecified fracture morphology, subsequent encounter Social History Tobacco Use Types Packs/Day Years [...] on file documented as of this encounter Last Filed Vital Signs Vital Sign Reading Time Taken Comments Blood Pressure 150/78 03/16/2022 2:52 PM EST Pulse - - Temperature - - Respiratory Rate - - Oxygen Saturation - - Inhaled Oxygen Concentration - - Weight 86.6 kg (191 lb) 03/16/2022 2:52 PM EST Height 152.4 cm (5') 03/16/2022 2:52 PM EST Body Mass Index 37.3 03/16/2022 2:52 PM EST documented in this encounter Progress Notes * Geronimo Giron MD - 03/16/2022 3:00 PM EST [facility] Guzman Jean returns 5.5months s/p right humerus ORIF on 09/28/21 for evaluation after a recent fall onto her right arm. She was carrying wood when she tripped and fell. She had a direct impact onto the posterior aspect of the right mid humerus. She had pain and bruising and wanted to make sure she didn't injure her previous fracture. Her pain has been improving and shes been using her arm. Shestill has some numbness just lateral to her incision. She has full painless elbow motion. She has no other complaints today, and has a negative review of systems. No flowsheet data found. Physical Exam: In general she is a well appearing 46 y.o. female who is no acute distress, and was calm and cooperative throughout the examination. Examination of the right arm reveals the incision is well healed. Minimal swelling. No erythema or signs of infection. EPL/FPL/Intrinsics are intact 5/5 strength. Capillary refill is < 3 seconds. Sensation to light touch is intact throughout. Full shoulder, elbow ROM without pain Radiographs: 2 views of the right humerus were obtained and reviewed. This demonstrates maintained alignment andreduction compared to prior radiographs. There are no changes in implant position or evidence of implant failure or loss of fixation. Fracture lines are obliterated, there is joaquin healing. No other osseous abnormalities. No other fractures identified. Assessment and Plan: Guzman Jean is a 46 y.o. female who is 5.5months s/p right humeral shaft ORIF which is now healed. She had a recent fall onto her right humerus without any evidence of joaquin injury. She has somemild soft tissue bruising in her posterolateral mid humerus. -Weight Bearing Status: WBAT -Continue ROM of shoulder and elbow, wrist and fingers -Continue diabetes management --f/u PRN, patient will call if they have any new or worsening symptoms. This plan was discussed with the patient and she is in agreement. All of the patient's questions were answered. Geronimo Giron MD Department of Orthopaedic Surgery 03/16/22 documented in this encounter Plan of Treatment Upcoming Encounters Date Type Department Care Team (Late st Contact Info) Description 02/21/2024 1:40 PM EDT Office [place] [address] Kristi Caicedo APRN [facility] [place] [address] documented as of this encounter Visit Diagnoses Diagnosis Closed fracture of shaft of right humerus with routine healing, unspecified fracture morphology, subsequent encounter documented in this encounter Care Teams Skein Yarn Dyer Relationship Specialty Start Date End Date Jossie Patton APRN [address] [place] [address] PCP - General Family Medicine 04/19/20 documented as of this encounter
--- OUTSIDE RECORDS SUMMARY | 2024-02-14 15:16 | XMS_ITS | Encounter Summary ---
Author Organization [facility] Address [facility] [place] [address] Care Team Providers Care Broacher Name Role Phone Jossie Patton APRN Primary Care Provider [phone] Reason for Visit * Diagnostic Test (Routine) - Closed Specialty Diagnoses / Procedures Referred By Savannah ashton Referred To Contact Sleep Center Diagnoses KIMBERLEY (obstructive sleep apnea) Sleep walking Enuresis Insomnia, unspecified type Procedures Sleep Study Diagnostic PSG / Split Night PSG Haleigh Cancino DO [facility] [place] [address] [facility] Sleep Medicine [address] [place] [address] Referral ID Status Reason Start Date Expiration Date V isits Requested Visits Authorized [id number] Closed Specialty Service Requested 08/30/2021 08/30/2022 1 1 Encounter Details Date Type Department Care Team (Latest Contact Info) Description 11/20/2021 7:30 PM EDT Procedure visit Sleep Center at [facility] [address] [place] [id number] Haleigh Cancino [facility] [place] [address] KIMBERLEY (obstructive sleep apnea) (Primary Dx); Sleep walking; Enuresis; Insomnia, unspecified type Social History Tobacco Use Types Packs/Day Years Used Date Smoking Tobacco: Every Day Cigarettes Smokeless Tobacco: Never Comments:marijuana occasiona lly Sex and Gender Information Value Date Recorded Sex Assigned at Not on file Gender Identity Not on file Sexual Orientation Not on file documented as of this encounter Last Filed Vital Signs Vital Sign Reading Time Taken Comments Blood Pressure 149/76 11/20/2021 7:50 PM EDT aut omatic cuff Pulse 99 11/20/2021 7:50 PM EDT Temperature - - Respiratory Rate - - Oxygen Saturation 99% 11/20/2021 7:50 PM EDT Inhaled Oxygen Concentration - - Weight 88.5 kg (195 lb) 11/20/2021 7:50 PM EDT Height 152.4 cm (5') 11/20/2021 7:50 PM EDT Body Mass Index 38.08 11/20/2021 7:50 PM EDT documented in this encounter Progress Notes * Haleigh Cancino DO - 11/20/2021 7:30 PM EDT Images from the original note were not included. REPORT OF DIAGNOSTIC POLYSOMNOGRAM IDENTIFYING INFORMATION Guzman Jean : 1975 REFERRING PHYSICIAN: Haleigh Cancino DO PRIMARY CARE PHYSICIAN: Jossie Patton APRN History Of Present Illness: Guzman Jean is a 46 y.o. female who presents for a polysomnogram due to sleep walking and hx of obstructive sleep apnea. Polysomnography: The patient's sleep was evaluated for one [facility] at [facility]. Sleep was monitored in accordance with recommended AASM guidelines. The recording also included oral/nasal airflow, chest and abdominal respiratory effort, nasal pressure, single channel EKG, intercostalEMG, bilateral tibialis EMG, and oxygen saturation (by pulse oximeter). Comment: - Sleep/EEG: The patient had a 10 Hz posterior dominant rhythm when awake with eyes closed. Sleep efficiency was 87%. NREM and REM sleep were noted. REM percentage was 12%. 44% of TST was spent in supine position. Sleep was generally well consolidated on this night. - Respiratory: Obstructive sleep apnea of a mild degree (AHI of 7) noted. [facility] AHI of 1.5 which includes only apneas and hypopneas with 4% desaturations noted. Minimum saturation asleep of 88%. Mean saturation asleep was 93%. A total of 0.3 minutes were spent with a saturation less then or equal to 88%. Obstructive events were seen mostly in and around REM sleep. While in supine NREM sleep, saturations remained around 89-90%. Intermittent snoring was noted. - EKG: Normal sinus rhythm with some tachycardia noted. Heart rate ranged from 70 to 130 with a mean of 98 bpm (above 90 bpm is considered tachycardia during sleep). - EMG: PLM index of 0. Normal atonia of REM. No parasomnias captured on this night. No confusional arousals seen. - Study Conditions: Head of the bed: 0 degree elevation. 3 pillows. Supplemental oxygen: none - Subjective: The post sleep study questionnaire indicated the following: ...how did you sleep last night: Slightly worse ..how well rested and alert do you feel right now: slightly worse Assessment: Ms. Guzman Jean is a 46 y.o. female whose polysomnogram reveals a mild obstructivesleep apnea with an overall AHI of 7. Obstructive events were mostly seen in and around REM sleep. There was no prolonged hypoxemia. EKG revealed a normal sinus rhythm and at times, sinus tachycardiawith average heart rate of 98 bpm. No motor disorders were identified. She had a normal atonia of REM. No parasomnias were captured on this night. Sleep architecture was overall unremarkable and fairly well consolidated. No EEG abnormalities were identified. Recommendations: Given the evidence of mild KIMBERLEY on this study with her current symptoms of parasomnias, insomnia, as well as her history of diabetes, treatment is recommended. CPAP is the recommendedprimary modality of treatment. Alternative options are less favored and include an oral appliance. Conservative strategies may be of additional benefit and include weight loss, avoiding the supine position, and treatment of nasal congestion if present. There are no apparent contraindications to AUTOPAP. Recommend follow up with PCP regarding tachycardia seen during sleep (related to diabetes, medication, etc?). Sleep walking safety discussed at initial consultation. 1. Trial of AUTOPAP 5 - 15 cm. 2. Follow up with Haleigh Cancino DO about 6 weeks after starting AUTOPAP. 3. Results were communicated with patient via [facility]. 4. Follow up with PCP regarding tachycardia Haleigh Cancino DO [facility] REPORT of Diagnostic Polysomnography Patient Name: Guzman Jean Study Date: 11/20/2021 Age & Sex: 46 y.o. Female Height: 5' Date of : 1975 Weight: 195 lbs BMI: 38.1 Referring Provider: Recording Technologist: CLIFFORD ACEVEDO Scoring Technologist: BALAJI MCKEON RRT [facility] [place] Sleep Fellow: Sleep Specialist: HALEIGH CANCINO DO Scoring Technologist Comments: ECG: Sinus Rhythm Ectopy: Description of Study: Diagnostic polysomnography was performed utilizing frontal, central & occipital EEG, EOG, submentalis EMG, oronasal thermocouple, nasal pressure, ECG, thoracic and abdominalinductance plethysmography, right and left anterior tibialis EMG, snore sensor, and pulse oximetry according to AASM established guidelines. Study Details & Sleep Architecture Diagnostic Start Time (Lights Off): 20:42:55 Total Recording Time: 402.5 min Diagnostic End Time (Lights On): 03:25:25 Total Sleep Time (minutes): 353.0 Total Num. of Stage Shifts: 138 Total Sleep Time (hrs:min): 5:53.0 Total Num. of Awakenings: 21 Sleep Onset Latency: 6.5 min Total Num. of Trans. to N1: 47 Sleep Efficiency: 87.7% Total Num. of REM Periods: 4 Stage Results: Time (minutes) %TST Latency (minutes) WASO: 43.0 - - N1: 32.0 9.1 47.0 N2: 250.5 71.0 0.0 N3: 29.0 8.2 17.0 REM: 41.5 11.8 122.0 114.5 (minus wake) Arousal Counts: NREM REM Total Spontaneous: 30 (5.8/hr) 3 (4.3/hr) 33 (5.6/hr) Sum of All Arousals: 44 (8.5/hr) 13 (18.8/hr) 57 (9.7/hr) Spontaneous arousals include only EEG arousals not associated with a respiratory event or PLM. Body Position: Supine Non-Supine Non-REM: 152.5 min 159.0 min REM: 3.5 min 38.0 min Total Sleep: 156.0 min (44.2%) 197.0 min (55.8%) Respiratory Events Apneas Obstructive Mixed Central Total Apneas Total Count: 0 0 1 1 Mean Duration (sec): 0 0 10 10 Longest Duration (sec): 0 0 10.0 10 Index (REM/NREM): 0.0 / 0.0 0.0 / 0.0 0.0 / 0.2 0.0/ 0.2 Index (Sup./Non-Sup.): 0.0 / 0.0 0.0 / 0.0 0.0 / 0.3 0.0/ 0.3 Index (Total): 0.0 0.0 0.2 0.2 Hypopneas & RERAs Hypopnea Definitions: Hypopnea* [facility] Hypopnea AASM Central Hypopneas Hypopneas All RERA Total Count: 8 40 0 40 3 Mean Duration (sec): 28.3 34.8 0.0 35 47.0 Longest Duration (sec): 40.8 77.4 0.0 77 48.2 Index (REM/NREM): 7.2/0.6 30.4/3.7 0.0 / 0.0 30.4/ 3.7 0.0 0.6 Index (Sup./Non-Sup.): 0.8 / 1.8 5.0/ 8.2 0.0 / 0.0 5.0/ 8.2 0.4 / 0.6 Index (Total): 1.4 6.8 0.0 6.8 0.5 *CMS-defined hypopneas include only hypopneas with a >=4% oxygen desaturation. Includes hypopneas with an arousal or with a 3%-4% desaturation. Periodic Breathing Total Sleep Time Time (minutes) 0.0 Time (%Sleep Time) 0.0 AHI: Includes all apneas & all hypopneas associated with an arousal or a >= 3% desaturation. Supine Non-Sup. REM NREM Total Count: 13 28 21 20 41 Index (events/hr): 5.0 8.5 30.4 3.9 AHI = 7.0 CMS AHI: Includes all apneas & only hypopneas associated with a >= 4% desaturation. Supine Non-Sup. REM NREM Total Count: 2 7 5 4 9 Index (events/hr): 0.8 2.1 7.2 0.8 CMS = 1.5 Obstructive AHI: Includes obstructive & mixed apneas as well as all hypopneas. Excludes centralapneas and RERAs. Supine Non-Sup. REM NREM Total Count: 13 27 21 19 40 Index (events/hr): 5.0 8.2 30.4 3.7 OAHI = 6.8 RDI: Includes all apneas, all hypopneas, all RERAs, and all ???Unsure??? events. Supine Non-Sup. REM NREM Total Count: 14 30 21.0 22.8 44 Index (events/hr): 5.4 9.1 30.4 4.4 RDI = 7.5 Oxygen Saturation Details SpO2 Awake NREM REM All Sleep CLEMENTE Report Sleep Mean: 95% 93% 93% 93% 3% CLEMENTE 3.9 3.9 Minimum: - 88% 88% 88% 4% CLEMENTE 1.6 1.5 SpO2 Awake (minutes) NREM (minutes) REM (minutes) All Sleep (minutes) <=90% 0.3 24.0 3.1 27.1 <=89% 0.1 7.2 0.6 7.8 <=88% 0.1 0.3 0.0 0.3 90-99% 34.8 286.4 38.3 324.7 80-89.9% 0.1 7.2 0.6 7.8 79-79.9% 0.0 0.0 0.0 0.0 60-69.9% 0.0 0.0 0.0 0.0 50-59.9% 0.0 0.0 0.0 0.0 <=50% 0.0 0.0 0.0 0.0 Cardiac Details Heart Rate (bpm) Total Study NREM REM All Sleep Minimum - 83 70 70 Maximum 130 130 106 130 Mean - 98 97 98 Limb Movement Details Periodic Limb Movements Total PLMs (and Index) PLMs w/ Arousals (and Index) Wake (after ???Lights Off???): 0 (0.0/hr) 0 (0.0/hr) NREM: 0 (0.0/hr) 0 (0.0/hr) REM: 0 (0.0/hr) 0 (0.0/hr) Total Sleep: 0 (0.0/hr) 0 (0.0/hr) Graphs PLMs Body Position Supplemental Oxygen documented in this encounter Plan of Treatment Upcoming Encounters Date Type Department Care Team (Late st Contact Info) Description 02/21/2024 1:40 PM EDT Office [place] [address] Kristi Caicedo APRN [facility] [place] [address] documented as of this encounter Visit Diagnoses Diagnosis KIMBERLEY (obstructive sleep apnea)- Primary Obstructive sleep apnea (adult) (pediatric) Sleep walking Sleep arousal disorder Enuresis Insomnia, unspecified type documented in this encounter Care Teams Broacher Relationship Specialty Start Date End Date Jossie Patton APRN [address] [place] [address] PCP - General Family Medicine 04/19/20 documented as of this encounter
--- OUTSIDE RECORDS SUMMARY | 2024-02-14 15:16 | XMS_ITS | Encounter Summary ---
Author Organization [facility] [place] [address] Care Team Providers Care Lye Machine Operator Name Role Phone PoojaJossie karimi Gabrielle GARCIA Primary Care Provider Encounter Details Date Type Department Care Team (Latest Contact Info) Description 02/02/2022 1:10 PM EDT - 02/02/2022 11:59 PM EDT Hospital Encounter XRay at [address] [place] [address] Geronimo Giron MD [facility] [place] [address] Closed fracture of shaft of right humerus [...] Sig Dispensed Refills Start Date End Date Acetylcysteine 600 mg Capsule TAKE 2 CAPSULES [...] as needed. 06/27/2021 naloxone (Narcan) 4 mg/actuation [place], Non-Aerosol SPRAY 1 SPRAY INTO BOTH NOSTRILS [...] spironolactone (ALDACTONE) 50 mg Tablet 09/26/2021 03/23/2022 oseltamivir (Tamiflu) 75 mg Capsule TAKE 1 [...] DOWN INSTRUCTED 180 tablet 3 06/26/2021 03/23/2022 Trulicity 1.5 mg/0.5 mL Pen Injector Inject 0.5 mLs subcutaneously once a week. 6 mL 3 06/06/2021 02/08/2022 rosuvastatin (Crestor) 20 mg Tablet 03/20/2021 02/18/2023 busPIRone (Buspar) 10 mg Tablet Take 10 mg by mouth daily. 05/23/2021 09/06/2023 QUEtiapine (SEROquel) 200 mg Tablet Take 200 mg by mouth daily. 05/25/2021 03/16/2022 insulin needles, disposable, 31 gauge x 3/16 Needle 1 [place] [facility]Non-Drug; Combo Route) route daily. 90 each 3 01/31/2021 10/29/2022 ranitidine (ZANTAC) 150 mg Tablet Take 300 mg by mouth Twice daily. 02/18/2023 metFORMIN (GLUCOPHAGE) 1,000 mg Tablet Take 2,000 mg by mouth daily. 05/16/2014 03/23/2022 documented as of this encounter Plan of Treatment Upcoming Encounters Date Type Department Care Team (Late st Contact Info) Description 02/21/2024 1:40 PM EDT Office [place] [phone] Kristi Caicedo APRN [facility] [place] [address] documented as of this encounter Procedures Procedure Name Priority Date/Time Associated Diagnosis Comments XR HUMERUS RIGHT Routine 02/02/2022 1:18 PM EDT Closed fracture of shaft of right humerus with routine healing, unspecified fracture morphology, subsequent encounter documented in this encounter Results * XR Humerus Right (Generic) (02/02/2022 1:18 PM EDT) Anatomical Region Laterality Modality Arm Right Digital Radiogra phy Impressions 02/02/2022 2:04 PM EDT RIGHT 1. ??Continued healing of mid humeral fracture 2. ??Maintained post reduction alignment and no hardware complications. Thank you for letting us participate in the care of this patient. ??If you are a health care provider and have any questions regarding this report, please contact the number below. ??For patients who have questions please contact the health nursing care partner that requested your imaging first. ? Narrative 02/02/2022 2:04 PM EDT EXAMINATION: XR HUMERUS RIGHT (GENERIC) CLINICAL HISTORY: right humerus orif, , entered by ordering service TECHNIQUE: RIGHT humerus, 2 view[s] COMPARISON: Radiographs, October 11, 2021 FINDINGS: Bones Humerus-ORIF of humeral fracture with plates and screws. There is increased callus with partial obliteration of fracture line. No hardware complications. Joints Congruent and shoulder and elbow alignment Soft tissues Decreased soft tissue swelling Procedure Note Ruthy Euceda MD - 02/02/2022 EXAMINATION: XR HUMERUS RIGHT (GENERIC) CLINICAL HISTORY: right humerus orif, , entered by ordering service TECHNIQUE: RIGHT humerus, 2 view[s] COMPARISON: Radiographs, October 11, 2021 FINDINGS: Bones Humerus-ORIF of humeral fracture with plates and screws. There isincreased callus with partial obliteration of fracture line. No hardwarecomplications. Joints Congruent and shoulder and elbow alignment Soft tissues Decreased soft tissue swelling IMPRESSION RIGHT 1. Continued healing of mid humeral fracture 2. Maintained post reduction alignment and no hardware complications. Thank you for letting us participate in the care of this patient. If youare a health care provider and have any questions regarding this report,please contact the number below. For patients who have questions please contactthe health nursing care partner that requested your imaging first. Geronimo Giron MD IMG DX ORDERABLES documented in this encounter Visit Diagnoses Diagnosis Closed fracture of shaft of right humerus with routine healing, unspecified fracture morphology, subsequent encounter documented in this encounter Care Teams Lye Machine Operator Relationship Specialty Start Date End Date Jossie Patton APRN [address] [place] [address] PCP - General Family Medicine 04/19/20 documented as of this encounter
--- OUTSIDE RECORDS SUMMARY | 2024-02-14 15:16 | XMS_ITS | Encounter Summary ---
[place] [address] Care Team Providers Care Life Consultant Name Role Phone Jossie Patton APRN Primary Care Provider [phone] Reason for Referral * Consultation (Routine) - Closed Specialty Diagnoses / Procedures Referred By Savannah ashton Referred To Contact Neurology Diagnoses Sleep walking Rojelio Cancino DO [facility] [address] [facility] [address] [place] [phone] Referral ID Status Reason Start Date Expiration Date V isits Requested Visits Authorized [id number] Closed Consult, Test & Treat 02/25/2023 02/25/2024 1 1 Encounter Details Date Type Department Care Team (Latest Contact Info) Description 02/19/2023 11:00 AM EDT TH Visit (TeleHealth) Sleep Center at [facility] [address] [place] [address] Rojelio Cancino [facility] [place] [address] Sleep walking (Primary Dx); KIMBERLEY (obstructive sleep apnea) Social History Tobacco Use Types Packs/Day Years [...] Sign Reading Time Taken Comments Blood Pressure - - Pulse - - Temperature - - Respiratory Rate - - Oxygen Saturation - - Inhaled Oxygen Concentration - - Weight 78 kg (172 lb) 02/18/2023 11:36 AM EDT Height 152.4 cm (5') 02/18/2023 11:36 AM EDT Body Mass Index 33.59 02/18/2023 11:36 AM EDT documented in this encounter Progress Notes * Rojelio Cancino R, DO - 02/19/2023 11:00 AM EDT Images from the original note were not included. Sleep Medicine Follow-Up Note -TELEHEALTH Visit conducted via Telehealth platform State patient is located in at time of this visit: [place] Chief Complaint: Follow up KIMBERLEY HPI: Ms. Guzman Jean is a 47 y.o. female seen at for follow-up regarding KIMBERLEY. They sent sleep machine, but didn't use very much. Takes seroquel and then klonapin 1 mg at night for insomnia. She reports these aren't really helping the sleep walking. Sleep schedule is all over the place. She is having weird behaviors She is sleep walking sometimes. This seems to be happening due to stress (worse with stress) She lost her partner in August. When the behaviors do happen, she doesn't remember waking up. She is finding herself in different places in the house. She has always had sleep issues This started around 19 or 20. Usually go to bed well around 830 or 9p. Sometimes waking up around midnight. She is still sleepy in the morning. After 10 am she is ok. Last September she fell down a flight of stairs and broke her arm. When partner was alive he would keep me safe she can unlock a door in her sleep This happens around the midnight hour. This was much worse on Ambien. Denies any history of seizures. She does grind teeth and has lost teeth She reports that she CAN get up multiple times a night. Tried mirtazipine, seroquel, ambien nothing has helped. No family history of seizure disorder She feels like over half the months she is having days where she does not sleep for a few days. She states that she can stay away for up to 6 days. 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 Chronic nonintractable headache R51.9, G89.29 Hypertension I10 Insulin overdose with S/I in 2013, insulin was then given under supervision T38.3X1A Suicidal ideation R45.851 Vitamin D deficiency (25vitD 14.5 on 05/16/13-> 29 on 07/07/19) 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 (TSH 4.4H on 09/18/19, iCa 5.75H with Li 1.3-1.7H) => stopped Li since then T56.891A, E03.2 History of tobacco use Z87.891 Fatty liver determined by biopsy 11/25/2009; mildly elevated LFTs K76.0 Adult BMI 40.0-44.9 kg/sq m Z68.41 Vitamin B12 deficiency (used to take B12 shots previously) E53.8 s/p ORIF R diaphyseal humerus fracture 09/28/21 (Dr Giron) S42.309A Tobacco use in , childbirth, or the puerperium, antepartum O99.330 Episodic mood disorder F39 Ins[address] Z96.41 Current Outpatient Medications Medication Sig Dispense Refill omeprazole (PriLOSEC) [address] capsule Take 40 mg by mouth daily. prazosin (Minipress) 2 mg capsule Take 2 mg by mouth nightly. tirzepatide 15 mg/0.5 mL Pen Injector Inject 15 mg subcutaneously once a week. 2 mL 3 Insulin Tresiba FlexTouch U-200 200 unit/mL (3 mL) Insulin Pen INJECT 50-60 UNITS UNDER THE SKIN NIGHTLY 30 mL 0 spironolactone (Aldactone) 100 mg tablet TAKE ONE TABLET BY MOUTH EVERY DAY 90 tablet 1 insulin needles, disposable, 31 gauge x 3/16 Needle 1 each by [facility].(Non-Drug; Combo Route) route daily. DX: E11.65. Tech Lite brand per insurance please. Thank you! 90 each 3 metFORMIN (Glucophage) 1,000 mg tablet Take 1 tablet by mouth 2 times daily. 180 tablet 1 Trulicity 3 mg/0.5 mL Pen Injector Inject 0.5 mLs subcutaneously once a week. To be dispensed while4.5mg dose pen is unavailable. 6 mL 1 Insulin Syringe-Needle U-100 (Insulin Syringe) 0.5 mL 29 gauge x 1/2 Syringe 1 each by [facility].(Non-Drug; Combo Route) route 6 times daily. Use as needed when pump malfunctions. 100 each 3 humaLOG 100 unit/mL Solution Inject up to 120-150 units subcutaneously daily via insulin pump 150 mL 3 QUEtiapine (SEROquel) 100 mg Tablet Take 50 mg by mouth nightly as needed. She reports she is working on reduced dose. Acetylcysteine 600 mg Capsule TAKE 2 CAPSULES BY MOUTH TWICE A DAY NEEDED clotrimazole (Mycelex) 10 mg Edu HOLD 1 EDU IN MOUTH FIVE TIMES A DAY nystatin (Mycostatin) 100,000 unit/mL Suspension TAKE 5 ML BY MOUTH 4 TIMES A DAY-- SWISH AND SWALLOW ondansetron (Zofran) 4 mg Tablet Take 4 mg by mouth every 6 hours as needed. albuteroL 90 mcg/actuation HFA Aerosol Inhaler INHALE 1 TO 2 PUFFS EVERY 4 TO 6 HOURS NEEDED FORWHEEZING clonazePAM (KlonoPIN) 1 mg Tablet TAKE 1 TABLET BY MOUTH ONCE DAILY 1 HOUR PRIOR TO BED NEEDED diclofenac (Voltaren) 1 % Gel APPLY A SMALL AMOUNT TO SKIN THREE TIMES A DAY NEEDED FOR PAIN prazosin (Minipress) 1 mg Capsule TAKE 1 CAPSULES BY MOUTH FOR 2 DAYS THEN INCREASE TO 2 CAPSULES AT NIGHT (D/C CLONIDINE MONITOR FOR BLOOD PRESSURE DAILY) Keto-Diastix Strip See Admin Instructions. Vraylar 6 mg Capsule Take 1 capsule by mouth daily. 3 mg gabapentin (Neurontin) 400 mg Capsule Take 400 mg by mouth 3 times daily. busPIRone (Buspar) 10 mg Tablet Take 10 mg by mouth daily. labetaloL (Normodyne) 200 mg Tablet Take 200 mg by mouth Twice daily. amLODIPine (Norvasc) 10 mg Tablet Take 10 [...] Tablet Take 150 mg by mouth Daily. naloxone (Narcan) 4 mg/actuation [place], Non-Aerosol SPRAY 1 SPRAY INTO BOTH NOSTRILS NEEDED FOR SUSPECTED OVERDOSE glucagon, Human Recombinant, (Glucagon Emergency Kit, human,) 1 mg Recon Soln Inject 1 mg into the muscle as needed. No current facility-administered medications for this visit. Soc Hx: Significant other recently PE: General: awake, alert, NAD Body mass index is 33.59 kg/m??. Vitals: 02/18/23 1136 Weight: 78 kg (172 lb) Height: 152.4 cm (5') Wt Readings from Last 5 Encounters: 02/18/23 78 kg (172 lb) 03/23/22 91.7 kg (202 lb 3.2 oz) 03/16/22 86.6 kg (191 lb) 02/02/22 86.6 kg (191 lb) 11/20/21 88.5 kg (195 lb) Pul: Respirations: regular, non-labored Records Reviewed: Reviewed latest endocrinology notes. Assessment: Ms. Guzman Jean is a 47 y.o. female who is seen for follow-up of mild obstructive sleep apnea and sleep walking. After the sleep study, we did recommend CPAP and she received the APAP but wasn't using regularly. She denied any significant issues with pressure or mask intolerance, she just didn't think she had significant sleep apnea. Also of note,is that she has lost about 20-25 l bs since that sleep study. She still reports regular sleep walking on an almost nightly basis. She is taking klonopin at night and still is having these sleep walking episodes. This is very unusual for a number of different reasons. 1st, the frequency of sleep walking episodes is quite high. Additionally, having multiple episodes in one night (and throughout the night is also not typically seen). She is already on klonapin which usually successfully treats refractory sleep walking even at lower doses. She does note that she can stay up for multiple days at a time and this is happening on about a monthly basis - which makes me wonder about the bipolar disorder and whether it is effectively treated. Sleep deprivation can certainly worsen sleep walking, but she notes her sleep schedule otherwise is fairly normal. The atypical nature of the sleep walking with multiiple awakenings, lack of improvement with medication, and absence of motor findings on recent PSG also raises concern for a seizure disorder. It doesn't entirely fit the picture, but I think consultationwith neurology at this point is reasonable and I will place an order. Recommendations are appreciated. I encouraged her to trial the CPAP for a month or so and see if she gets any changes in the frequency of the sleep walking. We discussed the importance of sleep walking safety again. Advised against use of Ambien or any medication from the BZRAs. I encouraged follow up with psychiatry. I encouragedher to maintain a consistent sleep schedule. Recommendations: 1) CPAP at 5-15 cm 2) Referral to Neurology 3) Sleep walking safety 4) Follow-up 3 months The patient indicates understanding of these issues and agrees with the plan. Total time of visit, 50 minutes, including face to face counseling, chart review and documentation. Rojelio Cancino DO documented in this encounter Plan of Treatment Upcoming Encounters Date Type Department Care Team (Late st Contact Info) Description 02/21/2024 1:40 PM EDT Office [place] [address] Kristi Caicedo APRN [facility] [place] [address] Scheduled Referrals Name Type Priority Associated Diagnoses Orde r Schedule Referral to Neurology Outpatient Referral Routine Sleep walking Ordered: 02/25/2023 documented as of this encounter Visit Diagnoses Diagnosis Sleep walking- Primary Sleep arousal disorder KIMBERLEY (obstructive sleep apnea) Obstructive sleep apnea (adult) (pediatric) documented in this encounter Care Teams Life Consultant Relationship Specialty Start Date End Date Jossie Patton APRN [address] [place] [address] PCP - General Family Medicine 04/19/20 documented as of this encounter
--- OUTSIDE RECORDS SUMMARY | 2024-02-14 15:16 | XMS_ITS | Encounter Summary ---
[facility] [place] [address] Care Team Providers Care Senior Product Analyst Name Role Phone Jossie Patton APRN Primary Care Provider [phone] Encounter Details Date Type Department Care Team (Latest Contact Info) Description 09/06/2023 Travel Social History Tobacco Use Types Packs/Day Years [...] 1:40 PM EDT Office [place] [address] Kristi Caicedo APRN [facility] [place] [address] documented as of this encounter Visit Diagnoses Not on filedocumented in this encounter Care Teams Senior Product Analyst Relationship Specialty Start Date End Date Jossie Patton APRN [address] [place] [address] PCP - General Family Medicine 04/19/20 documented as of this encounter
--- OUTSIDE RECORDS SUMMARY | 2024-02-14 15:16 | XMS_ITS | Encounter Summary ---
Author Organization [facility] [place] [address] Care Team Providers Care Center Receptionist Name Role Phone Jossie Patton APRN Primary Care Provider [phone] Reason for Visit * Reason Comments Medication Refill Encounter Details Date Type Department Care Team (Late st Contact Info) Description 01/01/2023 Refill [place] [phone] Blas Roach MD [facility] [place] [address] Uncontrolled type 2 diabetes mellitus with hyperglycemia Social History Tobacco Use Types Packs/Day Years [...] 1:40 PM EDT Office Visit [place] [phone] Kristi Caicedo APRN [facility] [place] [address] documented as of this encounter Visit Diagnoses Diagnosis Uncontrolled type 2 diabetes mellitus with hyperglycemia documented in this encounter Care Teams Center Receptionist Relationship Specialty Start Date End Date Jossie Patton APRN [address] [place] [address] PCP - General Family Medicine 04/19/20 documented as of this encounter
--- OUTSIDE RECORDS SUMMARY | 2024-02-14 15:16 | XMS_ITS | Encounter Summary ---
[place] [address] Care Team Providers Care Traffic Signal Repairer Name Role Phone Jossie Patton Gabrielle GARCIA Primary Care Provider [phone] Reason for Visit * Reason Onset Date Comments Prior Authorization 05/29/2022 Encounter Details Date Type Department Care Team (Late st Contact Info) Description 05/29/2022 Telephone [place] [phone] Kaia Farias Prior Authorization Social History Tobacco [...] Telephone Encounter - Kaia Farias - 05/29/2022 9:06 AM EST Images from the original note were not included. * Telephone Encounter - Kaia Farias - 05/29/2022 9:05 AM EST Images from the original note were not included. Received PA for documented in this encounter Plan of Treatment Upcoming Encounters Date Type Department Care Team (Late st Contact Info) Description 02/21/2024 1:40 PM EDT Office [place] [address] Kristi Caicedo APRN [facility] [place] [address] documented as of this encounter Visit Diagnoses Not on filedocumented in this encounter Care Teams Traffic Signal Repairer Relationship Specialty Start Date End Date Jossie Patton APRN [address] [place] [address] PCP - General Family Medicine 04/19/20 documented as of this encounter
--- OUTSIDE RECORDS SUMMARY | 2024-02-14 15:16 | XMS_ITS | Encounter Summary ---
[place] [address] Care Team Providers Care Marketing Professional Name Role Phone Jossie Patton Gabrielle GARCIA Primary Care Provider [phone] Reason for Visit * Reason Onset Date Comments Pump/sensor 07/02/2022 Encounter Details Date Type Department Care Team (Late st Contact Info) Description 07/02/2022 Telephone [place] [phone] Kaia Farias Pump/sensor Social History Tobacco Use [...] encounter Miscellaneous Notes * Telephone Encounter - Kimberley Bledsoe CMA - 07/03/2022 9:24 AM EST Received order for minimed will have Kristi Caicedo fill out form, then will fax to [employer]. Faxed signed copy of the minimed order form to [employer], received conformation that the fax was sent on 07/05/22 * Telephone Encounter - Kaia Farias - 07/02/2022 12:57 PM EST Prescription from [employer]. Filled out. Dr. Cortez will sign for Kristi Caicedo. Secretaries will fax. * Telephone Encounter - Kaia Farias - 07/02/2022 7:26 AM EST Received prescription from [employer] Will complete as soon as possible documented in this encounter Plan of Treatment Upcoming Encounters Date Type Department Care Team (Late st Contact Info) Description 02/21/2024 1:40 PM EDT Office [place] [address] Kristi Caicedo APRN [facility] [place] [address] documented as of this encounter Visit Diagnoses Not on filedocumented in this encounter Care Teams Marketing Professional Relationship Specialty Start Date End Date Jossie Patton APRN [address] [place] [address] PCP - General Family Medicine 04/19/20 documented as of this encounter
--- OUTSIDE RECORDS SUMMARY | 2024-02-14 15:16 | XMS_ITS | Encounter Summary ---
Author Organization [facility] [place] [address] Care Team Providers Care Smoking Tobacco Cutter Operator Name Role Phone Pooja Jossie Gabrielle GARCIA Primary Care Provider [phone] Encounter Details Date Type Department Care Team (Late st Contact Info) Description 03/23/2022 10:00 AM EST Office Visit [place] [address] Blas Roach MD [facility] [place] [address] Uncontrolled type 2 diabetes mellitus with hyperglycemia [...] Sign Reading Time Taken Comments Blood Pressure 142/69 03/23/2022 9:47 AM EST Pulse 114 03/23/2022 9:47 AM EST Temperature 36.3 ??C (97.4 ??F) 03/23/2022 9:47 AM ES T Respiratory Rate - - Oxygen Saturation 97% 03/23/2022 9:47 AM EST Inhaled Oxygen Concentration - - Weight 91.7 kg (202 lb 3.2 oz) 03/23/2022 9:47 A M EST Height 152.4 cm (5') 03/23/2022 9:47 AM EST Body Mass Index 39.49 03/23/2022 9:47 AM EST documented in this encounter Progress Notes * Blas Roach MD - 03/23/2022 10:00 AM EST [facility] Follow up Patient Chief complaint: type 2 DM History: Guzman Jean is a 46 y.o. female with type 2 DM, HTN, HLD, PCOS, here for follow up of DM2. Last in office visit was with Isamar Hoff NP in 05/2021. She was also hospitalized in 09/2021 after falling down a flight of stairs complicated by a humeral fracture. Today, she states that she has been unable to obtain dexcom supplies due to supply issues, therefore she has not been using the sensor or checking her BG. She has sensors at home but needs a transmitter. She has not been feeling well the last few days, her partner was recently hospitalized with pneumonia. Type of Diabetes Mellitus (DM) : type 2 DM Date of Diagnosis: age 20 Current treatment for DM: Metformin 1 gram BID Tresiba U-200 - 52 units at night - to reduce amount of insulin needed in pump Trulicity - 1.5 mg/week [employer] 670G insulin pump - uses Humalog Pump settings: Basal: 12 am 2.00 7 am 2.10 Total basal 49.700 ICR 1:5 ISF 1:20 BGT 12 am 100 (140) 5 am 100 (120) 8:30 pm 100 (140) Not bolusing or correcting with her pump due to lack of BG data Complications of DM: Microvascular complications: Neuropathy: No Retinopathy: optho visit 05/2021 - no retinopathy Nephropathy: No Diet/Exercise: Eating about 2x a day Breakfast: scrambled eggs with toast, mayo (does not have cereal or oatmeal) Lunch: skips Dinner: sausage, eggs, peppers last night; has potatoes once in a while Snacks on nuts Glucometer Used: Dexcom G6 Not checking BG Blood Glucose Values: Has not been able to use dexcom sensor due to supply issues and needs a transmitter On Crestor 20 mg daily for HTN. For PCOS: she has been taking Aldactone 50 mg daily for years. No menses for several years. Still has facial hirsutism. Past Medical History: DM2 Medications: Current Outpatient Medications: ??? QUEtiapine (SEROquel) 100 mg Tablet, nightly as needed., Disp: , Rfl: ??? spironolactone (ALDACTONE) 50 mg Tablet, , Disp: , Rfl: ??? Trulicity 1.5 mg/0.5 mL Pen Injector, Inject 0.5 mLs subcutaneously once a week., Disp: 6 mL, Rfl: 0 ??? Acetylcysteine 600 mg Capsule, TAKE 2 CAPSULES BY MOUTH TWICE A DAY NEEDED, Disp: , Rfl: ??? nystatin (Mycostatin) 100,000 unit/mL Suspension, TAKE 5 ML BY MOUTH 4 TIMES A DAY-- SWISH AND SWALLOW, Disp: , Rfl: ??? ondansetron (Zofran) 4 mg Tablet, Take 4 mg by mouth every 6 hours as needed., Disp: , Rfl: ??? naloxone (Narcan) 4 mg/actuation [place], Non-Aerosol, SPRAY 1 SPRAY INTO BOTH NOSTRILS NEEDEDFOR SUSPECTED OVERDOSE, Disp: , Rfl: ??? Insulin Tresiba FlexTouch U-200 200 unit/mL (3 mL) Insulin Pen, INJECT 30-60 UNITS SUBCUTANEOUSLY NIGHTLY. INDICATIONS: TYPE 2 DIABETES MELLITUS, Disp: 18 mL, Rfl: 3 ??? albuteroL 90 mcg/actuation HFA Aerosol Inhaler, INHALE 1 TO 2 PUFFS EVERY 4 TO 6 HOURS NEEDED FOR WHEEZING, Disp: , Rfl: ??? clonazePAM (KlonoPIN) 1 mg Tablet, TAKE 1 TABLET BY MOUTH ONCE DAILY 1 HOUR PRIOR TO BED NEEDED, Disp: , Rfl: ??? diclofenac (Voltaren) 1 % Gel, APPLY A SMALL AMOUNT TO SKIN THREE TIMES A DAY NEEDED FOR PAIN, Disp: , Rfl: ??? ondansetron ODT (Zofran-ODT) 4 mg Tablet, Rapid Dissolve, , Disp: , Rfl: ??? prazosin (Minipress) 1 mg Capsule, TAKE 1 CAPSULES BY MOUTH FOR 2 DAYS THEN INCREASE TO 2 CAPSULES AT NIGHT (D/C CLONIDINE MONITOR FOR BLOOD PRESSURE DAILY), Disp: , Rfl: ??? Keto-Diastix Strip, See Admin Instructions., Disp: , Rfl: ??? Vraylar 6 mg Capsule, Take 1 capsule by mouth daily. 3 mg, Disp: , Rfl: ??? gabapentin (Neurontin) 400 mg Capsule, Take 400 mg by mouth 3 times daily., Disp: , Rfl: ??? humaLOG 100 unit/mL Solution, INJECT 120-150 UNITS SUBCUTANEOUSLY DAILY IN INSULIN PUMP, Disp: 150 mL, Rfl: 3 ??? glimepiride (AMARYL) 4 mg Tablet, TAKE 1 TABLET BY MOUTH 2 TIMES DAILY. TO BE ABLE TO REDUCE INSULIN TO HALF DOSE OR TAPER DOWN INSTRUCTED, Disp: 180 tablet, Rfl: 3 ??? rosuvastatin (Crestor) 20 mg Tablet, , Disp: , Rfl: ??? busPIRone (Buspar) 10 mg Tablet, Take 10 mg by mouth daily., Disp: , Rfl: ??? labetaloL (Normodyne) 200 mg Tablet, Take 200 mg by mouth Twice daily., Disp: , Rfl: ??? insulin needles, disposable, 31 gauge x 3/16 Needle, 1 each by [facility].(Non- Drug; Combo Route) route daily., Disp: 90 each, Rfl: 3 ??? amLODIPine (Norvasc) 10 mg Tablet, Take 10 mg by mouth Daily., Disp: , Rfl: ??? blood sugar diagnostic strips ([employer]Touch Verio test strips) Strip, USE TO CHECK BLOOD GLUCOSE TWICE DAILY DX E11.9, Disp: , Rfl: ??? Blood-Glucose Meter Misc, USE TO CHECK BLOOD GLUCOSE TWICE DAILY DX E11.9, Disp: , Rfl: ??? cholecalciferol, Vitamin D3, 50 mcg (2,000 unit) Capsule, Take 1 tablet by mouth Daily., Disp: , Rfl: ??? cyclobenzaprine (Flexeril) 10 mg Tablet, TAKE 1 TABLET BY MOUTH THREE TIMES A DAY NEEDED, Disp: , Rfl: ??? irbesartan (AVAPRO) 150 mg Tablet, Take 150 mg by mouth Daily., Disp: , Rfl: ??? metFORMIN (GLUCOPHAGE) 1,000 mg Tablet, Take 2,000 mg by mouth daily., Disp: , Rfl: ??? clotrimazole (Mycelex) 10 mg Edu, HOLD 1 EDU IN MOUTH FIVE TIMES A DAY, Disp: , Rfl: ??? oseltamivir (Tamiflu) 75 mg Capsule, TAKE 1 CAPSULE BY MOUTH TWICE A DAY FOR FIVE DAYS, Disp: ,Rfl: ??? glucagon, Human Recombinant, (Glucagon Emergency Kit, human,) 1 mg Recon Soln, Inject 1 mg intothe muscle as needed., Disp: , Rfl: ??? ranitidine (ZANTAC) 150 mg Tablet, Take 300 mg by mouth Twice daily., Disp: , Rfl: Allergies: Lisinopril Review of systems: As noted in HPI, all other systems reviewed and negative Patient Vitals for the past 24 hrs: Temp Pulse BP SpO2 03/23/22 0947 36.3 ??C (97.4 ??F) (!) 114 142/69 97 % Physical Exam: General: No acute distress, well appearing Eyes: no proptosis, no erythema Neck: supple, non-tender to palpation, no nodules or goiter noted Resp: breathing comfortably; chest expansion bilaterally Feet: +DP pulses bilaterally; no ulcers on feet; normal sensation on monofilament testing in both feet Psych: AAO x 3; normal affect; memory intact Skin: warm to touch; no jaundice Labs/Imaging: Latest Reference Range & Units Most Recent Hemoglobin A1C 4.3 - 5.6 % 11.9 (H) 09/27/21 12:27 (H): Data is abnormally high Latest Reference Range & Units Most Recent Sodium 135 - 145 mmol/L 137 09/29/21 03:37 Potassium 3.5 - 5.0 mmol/L 4.6 09/29/21 03:37 Chloride 98 - 107 mmol/L 101 09/29/21 03:37 CO2 22 - 31 mmol/L 23 09/29/21 03:37 Anion Gap 5 - 15 mmol/L 13 09/29/21 03:37 BUN 8 - 18 mg/dL 7 (L) 09/29/21 03:37 Creatinine 0.70 - 1.20 mg/dL 0.56 (L) 09/29/21 03:37 Estimated GFR >=60 mL/min/1.73 m?? 113 09/29/21 03:37 Calcium 8.5 - 10.5 mg/dL 8.9 09/29/21 03:37 (L): Data is abnormally low Latest Reference Range & Units Most Recent LDL Chol Direct mg/dL 96 05/23/20 08:20 Latest Reference Range & Units 05/23/20 08:21 Alb/Cr Ratio, Random 0 - 29 mcg/mg Cr Not Calculated U Albumin Conc, Random mg/L <3.0 U Creatinine mg/dL 62 Assessment and Plan: 46 year old woman with type 2 DM, HLD, PCOS 1. Type 2 DM: - last HbA1c 11.9% in 09/2021, expect Hba1c to be elevated today - sample dexcom sensor and transmitter provided today so that she can resume CGM use and bolus insulin via pump for meals/correction until she obtains supply of transmitters - did not make any changes to pump settings - c/w Metformin 1 gram BID and Tresiba 52 units daily while on pump - will switch from Trulicity to Mounjaro - script for Mounjaro 7.5 mg/week sent, increase dose to 10 mg/week in 4 weeks if tolerating. If Mounjaro is not covered, will increase Trulicity from 1.5 to 3.0 mg/week - check A1c, LDL and urine microalbumin/creatinine today 2. HLD: on Crestor 20 mg daily, check LDL 3. PCOS: c/w Aldactone, adjust dose to 100 mg daily Return visit in 4 months or so 40 minutes total time spent seeing patient today, pre-charting/reviewing previous labs/office notes, refilling medications and documenting in the record. Blas Roach MD Legal Project Manageranalytical statistician Endocrinology Section [facility] documented in this encounter Plan of Treatment Upcoming Encounters Date Type Department Care Team (Late st Contact Info) Description 02/21/2024 1:40 PM EDT Office Visit [place] [address] Krisit Caicedo APRN [facility] [place] [address] documented as of this encounter Procedures Procedure Name Priority Date/Time Associated Diagnosis Comments HC LDL CHOLESTEROL, DIRECT Routine 03/23/2022 10:45 AM EST Uncontrolled type 2 diabetes mellitus with hyperglycemia HC HEMOGLOBIN A1C STAT 03/23/2022 10: 45 AM EST Uncontrolled type 2 diabetes mellitus with hyperglycemia HC CREATININE - NON BLOOD Routine 03/23/2022 10:41 AM EST Uncontrolled type 2 diabetes mellitus with hyperglycemia documented in this encounter Results * LDL Cholesterol, Direct (03/23/2022 10:45 AM EST) LDL Cholesterol, Direct 151 mg/dL [facility] Comment: Lowest Risk: <100 mg/dL Lower Risk: 100-129 mg/dL Borderline High Risk: 130-159 mg/dL High Risk: 160-189 mg/dL Very High Risk: >hr=267 mg/dL Blood 03/23/2022 10:4 5 AM EST 03/23/2022 10:54 AM EST Narrative Resulting Agency Comment Spec In Lab Blas Roach MD CHEMISTRY ORDERABLES Performing Organization Address City/State/[facility] Co de Phone Number [facility] [place] [phone] * (ABNORMAL) Hemoglobin A1c (03/23/2022 10:45 AM EST) Hemoglobin A1c 9.8(H) 4.3 - 5.6 % [facility] Comment: Reference Range: 4.3 - 5.6% [...] Mellitus, Diabetes Care 2013; 36: Suppl. 1, S67-74 Estimated Average Glucose 233 mg/dL [facility] Comment: eAG equivalents for HbA1c percentages: HbA1c(%) ?eAG(mg/dL) 6.0 ?126 6.5 ?140 7.0 ?154 7.5 ?169 8.0 ?183 8.5 ?197 9.0 ?212 9.5 ?226 10.0 ? 240 Limitations: The eAG calculation has not been validated on women, individuals below 18 years old and above 70 years old, and individuals with hemoglobinopathies. Additional resources are available on the ADA website. Alberto FELIX, Noelle J, Srinivasa R, et al. ??Translating the A1C assay into estimated average glucose values. ??Diabetes Care 2008:31(8):2125-0247. Blood 03/23/2022 10:4 5 AM EST 03/23/2022 10:54 AM EST Narrative Resulting Agency Comment Spec In Lab Blas Roach MD CHEMISTRY ORDERABLES [facility] [place] [address] * U Albumin/Cre Ratio (03/23/2022 10:41 AM EST) Albumin / Creatinin Ratio, Urine Not Calculated 0 - 29 mcg/mg Cr [facility] Comment: Reference Ranges: <30 mcg/mg: Normal [...] 2, 357? 362 Albumin, Urine <3.0 mg/L [facility] Creatinine, Urine 50 mg/dL [facility] Urine 03/23/2022 10:4 1 AM EST 03/23/2022 10:47 AM EST Narrative Resulting Agency Comment Spec In Lab Blas Roach MD URINE ORDERABLES Performing Organization Address City/State/[facility] Co de Phone Number [facility] [place] [address] documented in this encounter Visit Diagnoses Diagnosis Uncontrolled type 2 diabetes mellitus with hyperglycemia documented in this encounter Care Teams Smoking Tobacco Cutter Operator Relationship Specialty Start Date End Date Jossie Patton APRN [address] [place] [address] PCP - General Family Medicine 04/19/20 documented as of this encounter
--- OUTSIDE RECORDS SUMMARY | 2024-02-14 15:16 | XMS_ITS | Encounter Summary ---
Author Organization [facility] [place] [address] Care Team Providers Care Event Specialist Food Demonstrator Name Role Phone Jossie Patton APRN Primary Care Provider [phone] Reason for Visit * Reason Onset Date Comments Medication Refill 07/10/2022 Encounter Details Date Type Department Care Team (Late st Contact Info) Description 07/10/2022 Ref[place] [phone] Blas Roach MD [facility] [place] [address] Social History Tobacco Use Types Packs/Day Years [...] 1:40 PM EDT Office [place] [phone] Kristi Caicedo APRN [facility] [place] [address] documented as of this encounter Visit Diagnoses Not on filedocumented in this encounter Care Teams Event Specialist Food Demonstrator Relationship Specialty Start Date End Date Jossie Patton APRN [address] [place] [address] PCP - General Family Medicine 04/19/20 documented as of this encounter
--- OUTSIDE RECORDS SUMMARY | 2024-02-14 15:16 | XMS_ITS | Encounter Summary ---
Author Organization [facility] [place] [address] Care Team Providers Care Ground Layer Name Role Phone Jossie Patton APRN Primary Care Provider [phone] Reason for Visit * Reason Onset Date Comments Medication Refill 01/28/2023 Encounter Details Date Type Department Care Team (Late st Contact Info) Description 01/28/2023 Telephone [place] [phone] Kristi Caicedo SENIOR INSIGHT MANAGER [facility] [place] [address] Medication Refill Social History Tobacco Use Types Packs/Day Years [...] encounter Miscellaneous Notes * Telephone Encounter - Ryan Swain - 01/28/2023 10:58 AM EDT NAME OF MEDICATION AND DOSE: tirzepatide 15 mg/0.5 mL Pen Injector [[id number]] Order Details Dose: 15 mg Route: Subcutaneous Frequency: WEEKLY Dispense Quantity: 2 mL Refills: 3 Note to Pharmacy: Dose increase is intentional Sig: Inject 15 mg subcutaneously once a week. PHARMACY NAME: [facility] [address] [place] [address] [place] [address] PHARMACY PHONE: [phone] Would patient like script sent directly to pharmacy? (Yes or no) yes Would patient like to car pick up driver paper script here at our office (Please put yes or no) no Would patient like paper script mailed to home address (Please put yes or no) no Caller/Patient aware of 1-2 business day process. documented in this encounter Plan of Treatment Upcoming Encounters Date Type Department Care Team (Late st Contact Info) Description 02/21/2024 1:40 PM EDT Office [place] [address] Kristi Caicedo APRN [facility] [place] [place] [address] documented as of this encounter Visit Diagnoses Not on filedocumented in this encounter Care Teams Ground Layer Relationship Specialty Start Date End Date Jossie Patton APRN [address] [place] [address] PCP - General Family Medicine 04/19/20 documented as of this encounter
--- OUTSIDE RECORDS SUMMARY | 2024-02-14 15:16 | XMS_ITS | Encounter Summary ---
Author Organization [facility] [place] [address] Care Team Providers Care Payroll Bookkeeper Name Role Phone PoojaJossie karimi Gabrielle GARCIA Primary Care Provider [phone] Encounter Details Date Type Department Care Team (Late st Contact Info) Description 07/27/2022 Telephone [place] [phone] Dahiana Perez Social History Tobacco Use Types Packs/Day Years [...] Telephone Encounter - Alexandr Deras RN - 08/10/2022 11:15 AM EDT August 10, 2022 Kaia Farias to Me 11:14 AM I can submit one to [place] Medicaid. Not something we normally do but I can try. * Telephone Encounter - Alexandr Deras RN - 08/09/2022 11:30 AM EDT Ada at [employer] left voicemail wanting an update on patient's in jesus PA. They said they haven't received any paperwork back about if this was approved or denied. If we have an approval, they want it faxed to them at [phone] They said they need a response or patient will be charged $3000+. * Telephone Encounter - Kaia Farias - 07/31/2022 11:00 AM EDT PA for pump would be done by [employer] Last two office notes routed to [employer] [phone] * Telephone Encounter - Dahiana Perez - 07/27/2022 3:20 PM EDT Patient calling to check on authorization on pump? documented in this encounter Plan of Treatment Upcoming Encounters Date Type Department Care Team (Late st Contact Info) Description 02/21/2024 1:40 PM EDT Office Visit [place] [address] Kristi Caicedo APRN [facility] [place] [address] documented as of this encounter Visit Diagnoses Not on filedocumented in this encounter Care Teams Payroll Bookkeeper Relationship Specialty Start Date End Date Jossie Patton APRN [address] [place] [address] PCP - General Family Medicine 04/19/20 documented as of this encounter
--- OUTSIDE RECORDS SUMMARY | 2024-02-14 15:16 | XMS_ITS | Encounter Summary ---
Author Organization [facility] [place] [address] Care Team Providers Care Director Of Early Childhood Name Role Phone Pooja Jossie Gabrielle GARCIA Primary Care Provider [phone] Encounter Details Date Type Department Care Team (Late st Contact Info) Description 02/26/2022 Telephone [facility] [address] [place] [phone] Nereida Mensah Social History Tobacco Use Types Packs/Day Years [...] encounter Miscellaneous Notes * Telephone Encounter - Nereida Mensah - 02/26/2022 11:27 AM EDT lvm to see if pt wanted us to re fax RX to another DME documented in this encounter Plan of Treatment Upcoming Encounters Date Type Department Care Team (Late st Contact Info) Description 02/21/2024 1:40 PM EDT Office [place] [address] Kristi Caicedo APRN [facility] [place] [address] documented as of this encounter Visit Diagnoses Not on filedocumented in this encounter Care Teams Director Of Early Childhood Relationship Specialty Start Date End Date Jossie Patton APRN [address] [place] [address] PCP - General Family Medicine 04/19/20 documented as of this encounter
--- OUTSIDE RECORDS SUMMARY | 2024-02-14 15:16 | XMS_ITS | Encounter Summary ---
[place] [address] Care Team Providers Care Welding Tester Name Role Phone Jossie Patton RADHA Primary Care Provider [phone] Reason for Visit * Reason Onset Date Comments Prior Authorization 10/31/2022 Encounter Details Date Type Department Care Team (Late st Contact Info) Description 10/31/2022 Refill [place] [phone] Kaia Farias Social History Tobacco Use Types Packs/Day Years [...] as of this encounter Miscellaneous Notes * Addendum Note - Mariposa Deras RN - 10/31/2022 3:05 PM EDTAddended by: MARIPOSA DERAS on: 10/31/2022 03:05 PM Modules accepted: Orders * Telephone Encounter - Kaia Farias - 10/31/2022 12:10 PM EDT Images from the original note were not included. * Telephone Encounter - aKia Farias - 10/31/2022 12:09 PM EDT Images from the original note were not included. Received PA documented in this encounter Plan of Treatment Upcoming Encounters Date Type Department Care Team (Late st Contact Info) Description 02/21/2024 1:40 PM EDT Office [place] [address] Kristi Caicedo APRN [facility] [place] [address] documented as of this encounter Visit Diagnoses Not on filedocumented in this encounter Care Teams Welding Tester Relationship Specialty Start Date End Date Jossie Patton APRN [address] [place] [address] PCP - General Family Medicine 04/19/20 documented as of this encounter
--- OUTSIDE RECORDS SUMMARY | 2024-02-14 15:16 | XMS_ITS | Encounter Summary ---
Author Organization [facility] [place] [address] Care Team Providers Care Flight Engineer Name Role Phone PoojaJossie karimi Gabrielle GARCIA Primary Care Provider [phone] Reason for Visit * Reason Onset Date Comments Questions 03/07/2022 Encounter Details Date Type Department Care Team (Late st Contact Info) Description 03/07/2022 Telephone [place] [phone] Geronimo Giron MD [facility] DR ORTHOPA[place] [address] Questions Social History Tobacco Use Types Packs/Day Years [...] encounter Miscellaneous Notes * Telephone Encounter - Shazia Holland - 03/08/2022 9:37 AM EST Pt scheduled. * Telephone Encounter - Jasper Song - 03/07/2022 2:31 PM ESTSummary: Questions Name of person calling: Guzman Facility person is calling from?: Was this a new injury? Yes Have you had Surgery?Yes If so when?09/28/21 Who was the Surgeon?Dr Giron S/P ORIF HUMERAL SHAFT FX. (WRVU 12.12) - Right MODIFIER: 3.5MM LCP PERIARTICULAR PROXIMAL HUMERUS PLATE SET SYNTHES - Right MODIFIER LOCKING SMALL FRAGMENT SYNTHES What is the question: Patient had the surgery above and was doing outdoor work in the past couple days. While doing so, she fell onto the Right arm. The patient states that while there is no fever/chills or other obvious signs of infection, she is having pain and swelling on the elbow in the area of the surgery. Patient also noted that there is slight bruising in this area as well. Patient can move the arm, but when trying to extend straight, or push things (like a grocery cart) it is painful and difficult. Please contact patient to discuss and advise how to proceed. Best number to reach the caller: [phone] documented in this encounter Plan of Treatment Upcoming Encounters Date Type Department Care Team (Late st Contact Info) Description 02/21/2024 1:40 PM EDT Office [place] [address] Kristi Caicedo APRN [facility] [place] [address] documented as of this encounter Visit Diagnoses Not on filedocumented in this encounter Care Teams Flight Engineer Relationship Specialty Start Date End Date Jossie Patton APRN [address] [place] [address] PCP - General Family Medicine 04/19/20 documented as of this encounter
--- OUTSIDE RECORDS SUMMARY | 2024-02-14 15:16 | XMS_ITS | Encounter Summary ---
Author Organization [facility] [place] [address] Care Team Providers Care Manager Department Name Role Phone Jossie Patton RADHA Primary Care Provider [phone] Encounter Details Date Type Department Care Team (Late st Contact Info) Description 02/08/2022 Telephone [place] [phone] Bart Muñoz RN Social History Tobacco Use Types Packs/Day [...] Telephone Encounter - Alexandr Deras RN - 02/12/2022 12:02 PM EDT Images from the original note were not included. February 09, 2022 Lianne Sotelo, RN to Bart Muñoz RN 9:21 AM Tried calling ana back and could not get through. February 08, 2022 Bart Muñoz, RN to [facility] [place] Endocrinology Nurse 4:32 PM Ana needs a call back about this pt (see note). I called back once and was unable to reach her. * Telephone Encounter - Bart Muñoz RN - 02/08/2022 12:13 PM EDT Ana from a [facility] center left message saying Guzman got a new CGM sensor and got most of it figured it out but she is trying to figure out the settings on it, to get her the right bolus, she is at 48 units but she is supposed to get 49.5, and Ana is not familiar with the Medtronic system and she sees in the records that this could be Dexcom. She is referring patient to their child care specialist because patient told her we are booking out into February. However, right now she needs trulicity as she is out of it. Ana is asking us to please fill out out her Trulicity order and she will try to connect pt with their child care specialist. documented in this encounter Plan of Treatment Upcoming Encounters Date Type Department Care Team (Late st Contact Info) Description 02/21/2024 1:40 PM EDT Office Visit [place] [address] Kristi Caicedo APRN [facility] [place] [address] documented as of this encounter Visit Diagnoses Not on filedocumented in this encounter Care Teams Manager Department Relationship Specialty Start Date End Date Jossie Patton APRN [address] [place] [address] PCP - General Family Medicine 04/19/20 documented as of this encounter
--- OUTSIDE RECORDS SUMMARY | 2024-02-14 15:16 | XMS_ITS | Encounter Summary ---
Author Organization [facility] [place] [address] Care Team Providers Care Buyers' Agent Name Role Phone Jossie Patton APRN Primary Care Provider [phone] Encounter Details Date Type Department Care Team (Late st Contact Info) Description 03/28/2022 Orders [place] [phone] Blas Roach MD [facility] [place] [address] Uncontrolled type 2 diabetes mellitus with hyperglycemia [...] 1:40 PM EDT Office [place] [phone] Kristi Caicedo APRN [facility] [place] [address] documented as of this encounter Visit Diagnoses Diagnosis Uncontrolled type 2 diabetes mellitus with hyperglycemia documented in this encounter Care Teams Buyers' Agent Relationship Specialty Start Date End Date Jossie Patton APRN [address] [place] [address] PCP - General Family Medicine 04/19/20 documented as of this encounter
--- OUTSIDE RECORDS SUMMARY | 2024-02-14 15:16 | XMS_ITS | Encounter Summary ---
Author Organization [facility] [place] [address] Care Team Providers Care Health Evaluator Name Role Phone Jossie Patton APRN Primary Care Provider [phone] Encounter Details Date Type Department Care Team (Latest Contact Info) Description 03/23/2022 Travel Social History Tobacco Use Types Packs/Day [...] 1:40 PM EDT Office [place] [address] Kristi Caicedo APRN [facility] [place] [address] documented as of this encounter Visit Diagnoses Not on filedocumented in this encounter Care Teams Health Evaluator Relationship Specialty Start Date End Date Jossie Patton APRN [address] [place] [address] PCP - General Family Medicine 04/19/20 documented as of this encounter
--- OUTSIDE RECORDS SUMMARY | 2024-02-14 15:16 | XMS_ITS | Encounter Summary ---
[place] [address] Care Team Providers Care Marketing Project Coordinator Name Role Phone Pooja, Jossie Gabrielle GARCIA Primary Care Provider [phone] Reason for Visit * Reason Onset Date Comments Prior Authorization 08/10/2022 Encounter Details Date Type Department Care Team (Late st Contact Info) Description 08/10/2022 Telephone [place] [phone] Kaia Farias Prior Authorization Social History Tobacco [...] Telephone Encounter - Kaia Farias - 08/10/2022 2:45 PM EDT Images from the original note were not included. * Telephone Encounter - Kaia Farias - 08/10/2022 11:17 AM EDT Previous Medications Tried Medication: Humalog via pump Medication: Tresiba - 1x daily Medication: Testing 4x daily History of DKA * Telephone Encounter - Kaia Farias - 08/10/2022 11:17 AM EDT Images from the original note were not included. Medication Prior Authorization Sascha Medication name/dose/directions: Medtronic Guardian Connect Basket Operator Rationale for request: Type II DM (E11.65) Health plan: [place] Medicaid (Fax) [place]: [phone] Authorizing livestock sales representative name: Martha Sent to health plan on: 08/10/22 PA Outcome: PA Denial Quantity approved: Authorization number: [id number] Start date: End date: documented in this encounter Plan of Treatment Upcoming Encounters Date Type Department Care Team (Late st Contact Info) Description 02/21/2024 1:40 PM EDT Office [place] [address] Kristi Caicedo APRN [facility] [address] documented as of this encounter Visit Diagnoses Not on filedocumented in this encounter Care Teams Marketing Project Coordinator Relationship Specialty Start Date End Date Jossie Patton APRN [address] [place] [address] PCP - General Family Medicine 04/19/20 documented as of this encounter
--- OUTSIDE RECORDS SUMMARY | 2024-02-14 15:16 | XMS_ITS | Encounter Summary ---
Author Organization [facility] [place] [address] Care Team Providers Care Line Staker Name Role Phone Jossie Patton Gabrielle GACRIA Primary Care Provider [phone] Reason for Visit * Reason Onset Date Comments Appointment 11/29/2021 Encounter Details Date Type Department Care Team (Late st Contact Info) Description 11/29/2021 Telephone [place] [phone] Geronimo Giron MD [facility] [place] [address] Appointment Social History Tobacco Use Types Packs/Day Years Used Date Smoking Tobacco: Every Day Cigarettes Smokeless Tobacco: Never Comments:marijuana occasiona lly Sex and Gender Information Value Date Recorded Sex Assigned at Not on file Gender Identity Not on file Sexual Orientation Not on file documented as of this encounter Miscellaneous Notes * Telephone Encounter - Evans Taylor - 11/29/2021 12:06 PM EDTSummary: cancelled for 11/29/2021 due to illness Who is calling: Guzman Nugent What is the question: May I cancel my appointment for today and reschedule? I am doing well with regard to my surgery but I am ill. R HUMERUS FX S/P ORIF DOI 09/18/21 DOS 09/28/21 (LAURA) Appointment options discussed and rescheduled to 12/27/2021 with x-ray prior. documented in this encounter Plan of Treatment Upcoming Encounters Date Type Department Care Team (Late st Contact Info) Description 02/21/2024 1:40 PM EDT Office [place] [address] Kristi Caicedo APRN [facility] [place] [address] documented as of this encounter Visit Diagnoses Not on filedocumented in this encounter Care Teams Line Staker Relationship Specialty Start Date End Date Jossie Patton APRN [address] [place] [address] PCP - General Family Medicine 04/19/20 documented as of this encounter
--- OUTSIDE RECORDS SUMMARY | 2024-02-14 15:16 | XMS_ITS | Encounter Summary ---
Author Organization [facility] [place] [address] Care Team Providers Care Washtub Worker Helper Name Role Phone Jossie Patton APRN Primary Care Provider [phone] Reason for Visit * Reason Onset Date Comments Medication Refill 01/28/2023 Encounter Details Date Type Department Care Team (Late st Contact Info) Description 01/28/2023 [place] [phone] Lianne Sotelo RN Social History Tobacco Use Types Packs/Day [...] 1:40 PM EDT Office [place] [address] Kristi Caicedo APRN [facility] [place] [address] documented as of this encounter Visit Diagnoses Not on filedocumented in this encounter Care Teams Washtub Worker Helper Relationship Specialty Start Date End Date Jossie Patton APRN [address] [place] [address] PCP - General Family Medicine 04/19/20 documented as of this encounter
--- OUTSIDE RECORDS SUMMARY | 2024-02-14 15:16 | XMS_ITS | Encounter Summary ---
Author Organization [facility] [place] [address] Care Team Providers Care Field Installer Name Role Phone Jossie Patton APRN Primary Care Provider Reason for Visit * Reason Comments Medication Refill Encounter Details Date Type Department Care Team (Late st Contact Info) Description 01/11/2023 Refill [place] [phone] Blas Roach MD [facility] [place] [address] Uncontrolled type 2 diabetes mellitus with hyperglycemia [...] 1:40 PM EDT Office [place] [phone] Kristi Caicedo APRN [facility] [place] [address] documented as of this encounter Visit Diagnoses Diagnosis Uncontrolled type 2 diabetes mellitus with hyperglycemia documented in this encounter Care Teams Field Installer Relationship Specialty Start Date End Date Jossie Patton APRN [address] [place] [address] PCP - General Family Medicine 04/19/20 documented as of this encounter
--- OUTSIDE RECORDS SUMMARY | 2024-02-14 15:16 | XMS_ITS | Encounter Summary ---
Author Organization [facility] [place] [address] Care Team Providers Care Casting Director Name Role Phone Jossie Patton APRN Primary Care Provider [phone] Encounter Details Date Type Department Care Team (Late st Contact Info) Description 03/27/2022 Telephone [place] [phone] Bart Muñoz RN Social History Tobacco Use [...] 1:40 PM EDT Office [place] [phone] Kristi Caicedo APRN [facility] [place] [address] documented as of this encounter Visit Diagnoses Not on filedocumented in this encounter Care Teams Casting Director Relationship Specialty Start Date End Date Jossie Patton APRN [address] [place] [address] PCP - General Family Medicine 04/19/20 documented as of this encounter
--- OUTSIDE RECORDS SUMMARY | 2024-02-14 15:16 | XMS_ITS | Encounter Summary ---
Author Organization [facility] [place] [address] Care Team Providers Care Certified Legal Secretary Specialist Name Role Phone Pooja, Jossie Gabrielle GARCIA Primary Care Provider Encounter Details Date Type Department Care Team (Late st Contact Info) Description 03/23/2022 [place] [phone] Dahiana Perez Uncontrolled type 2 diabetes mellitus with hyperglycemia [...] encounter Miscellaneous Notes * Telephone Encounter - Dahiana Perez - 03/23/2022 3:02 PM EST Patient needs a PA documented in this encounter Plan of Treatment Upcoming Encounters Date Type Department Care Team (Late st Contact Info) Description 02/21/2024 1:40 PM EDT Office [place] [phone] [facility] [address] [place] [place] [address] documented as of this encounter Visit Diagnoses Diagnosis Uncontrolled type 2 diabetes mellitus with hyperglycemia documented in this encounter Care Teams Certified Legal Secretary Specialist Relationship Specialty Start Date End Date Jossie Patton APRN [address] [place] [address] PCP - General Family Medicine 04/19/20 documented as of this encounter
--- OUTSIDE RECORDS SUMMARY | 2024-02-14 15:16 | XMS_ITS | Encounter Summary ---
Author [facility] [place] [address] Care Team Providers Care Metal Milling Machine Operator Name Role Phone Jossie Patton APRN Primary Care Provider [phone] Reason for Visit * Reason Comments Medication Refill Encounter Details Date Type Department Care Team (Late Contact Info) Description 01/01/2023 Ref[place] [phone] Kristi Caicedo [facility] [place] [address] Social History Tobacco Use Types Packs/Day Years [...] 1:40 PM EDT Office [place] [phone] Kristi Caicedo [facility] [place] [address] documented as of this encounter Visit Diagnoses Not on filedocumented in this encounter Care Teams Metal Milling Machine Operator Relationship Specialty Start Date End Date Jossie Patton APRN [address] [place] [address] PCP - General Family Medicine 04/19/20 documented as of this encounter
--- OUTSIDE RECORDS SUMMARY | 2024-02-14 15:16 | XMS_ITS | Encounter Summary ---
Author Organization [facility] [place] [address] Care Team Providers Care Sand Temperer Name Role Phone Jossie Patton APRN Primary Care Provider [phone] Encounter Details Date Type Department Care Team (Late st Contact Info) Description 09/06/2023 1:00 PM EDT Office [place] [address] Kristi Caicedo COAT JOINER LOCKSTITCH [facility] [place] [address] Type 2 diabetes mellitus with hyperglycemia, with long-term current use of insulin; Vitamin D deficiency (25vitD 14.5 on 05/16/13-> 29 on 07/07/19); Mixed hyperlipidemia; Insulin pump in place Social History Tobacco [...] ??F) 09/06/2023 12:22 PM EDT Respiratory Rate - - Oxygen Saturation 96% 09/06/2023 12:22 PM EDT Inhaled Oxygen Concentration - - Weight 77.2 kg (170 lb 3.2 oz) 09/06/2023 12:22 PM EDT Height 152.4 cm (5') 09/06/2023 12:22 PM EDT Body Mass Index 33.24 09/06/2023 12:22 PM EDT documented in this encounter Patient Instructions * Patient Instructions* Kristi Caicedo APRN - 09/06/2023 1:00 PM EDT Your average is amazing - 152! 73% in range this is our goal. Basal rates reduced for night lows 0000 - 2 ---> 1.75---> if still low 2-3 days change to 1.5 0700 - 2.2 same Add 8pm - 1.75----> if still low change to 1.5 Total new - 47.85 Monjaro sent to [facility]. 15 mg and if not able then you will use the 10mg. Go get labs today. Schedule 6 month - Feb 20 at 140pm documented in this encounter Progress Notes * Kristi Caicedo APRN - 09/06/2023 1:00 PM EDT Images from the original note were not included. Name: Guzman Jean : 1975 PCP: Jossie Patton APRN Date: 09/06/23 Reason for visit: Guzman Jean is a 48 y.o. year old female with Diabetes TYPE 2 referred by Jossie Patton for FOLLOW UP to the [facility] endocrine clinic for diabetes services. 48 yo female with type 2 diabetes poorly controlled. On pump, off the long acting, metformin, GLP-sujatharo started last visit with success in bringing down insulin needs and bgs and weight change yet.Has increased monjaro last visit to 15. Also changed pump settings to give just a bit more. She was doing so well with monjaro that she had stopped using pump and then about 2 months ago she reports going to dr and her A1c was back up to 9% so she put it back on. She is now having some lowsin the night and waking and treating most nights the last week. She was 225 lbs and now 170lbs after start of monjaro. She is having trouble getting the the 15 mg and asking to send to [employer] today. She will use the 10mg if needed but prefers the larger dose. Last 3 Hemoglobin A1Cs 2 months ago 9% 07/2022-PCP 8.9% A1c Lab Results Component Value Date HA1C 7.7 (H) 09/06/2023 HA1C 9.8 (H) 03/23/2022 HA1C 11.9 (H) 09/27/2021 Diabetes Diagnosis Date: diagnosed age 20. Diagnosed type 2. Brother has type 1 and is on pump. Medication Regimen for Diabetes Care: Metformin 1999 once daily Monjaro 15mg - Drugs that was on in past - Can't take victoza - makes vomit. Off tresiba.that she was taking at night to reduce insulin needs [employer] - uses Humalog - now on 630G Pump settings: Basal: 12 am 2.00 7 am 2.20 Total basal 51.4 ICR 1:5 ISF 1:20 BGT 12 am 100 (140) 5 am 100 (120) 8:30 pm 100 (140) Glucose Monitoring: Dexcom G7 upgraded 14 days review Of data LAst visit Average 222 29% In range and 0%low Big improvement! Hypoglycemia Severe Hypoglycemia in Past: no Has had 2 lows iin night last month. Hyperglycemia History of DKA: Yes/dehydrate Had ketones at home. ED Apr 2022. [facility]. Diet Following type of diet: none Carb counting: yes Last visit with mule rider: Arabella Diet Recall: B- eggs and coffee Skip lunch Eats dinner. Not snacking Exercise Not exercising. History of Diabetes Related Complications and Prevention Eyes: Last Eye Exam:2023 History of Diabetes Retinopathy: no Dental Care in last 6 months: yes using [employer] Thyroid: normal Latest Reference Range & Units 09/06/23 13:36 TSH 0.27 - 4.20 mcIU/mL 1.02 Vitd: takes replacement she is unsure of dose. Vit b12- has gotten shot in past Latest Reference Range & Units 05/23/20 08:20 09/06/23 13:36 Vitamin B-12 232 - 1,245 pg/mL 324 429 25-OH Vit D Total 21 - 100 ng/mL 38 30 25-OH Vit D Interp Sufficient Sufficient Kidney function: no nephropathy Last urine microalbumin: Latest Reference Range & Units 05/23/20 08:21 03/23/22 10:41 U Albumin Conc, Random mg/L <3.0 <3.0 On PHILIPPE/ARB:yes Combination Machine Tool Setter: none Cardio: Patient heart attack in past: no No stroke Aspirin: no No data found. Last cholesterol: not fasting today Latest Reference Range & Units 05/23/20 08:20 03/23/22 10:45 09/06/23 13:36 Chol, Total mg/dL 209 HDL mg/dL 58 Triglycerides mg/dL 214 LDL Cholesterol mg/dL 108 LDL Chol Direct mg/dL 96 151 Lipid Interpretation See Note Cholesterol medication: crestor -PCP manages Feet: History of Neuropathy: yes Current status of Neuropathy: some intermittent pain in legs and numbness in legs. Gabapentin in past. 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 Conception: tubes are tied. 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 Blood-Glucose Meter,Continuous (Dexcom G7 Entertainment Reporter) Misc by [facility].(Non-Drug; Combo Route) route. Yes Mounjaro 10 mg/0.5 mL Pen Injector Inject 10 mg subcutaneously once a week. Indications: type 2 diabetes mellitus Yes Mounjaro 15 mg/0.5 mL Pen Injector INJECT 15MG UNDER THE SKIN ONCE A WEEK Patient taking differently: Needs refill Yes spironolactone (Aldactone) 100 mg tablet TAKE ONE TABLET BY MOUTH EVERY DAY Yes omeprazole (PriLOSEC) [address] capsule Take 40 mg by mouth daily. Yes prazosin (Minipress) 2 mg capsule Take 2 mg by mouth nightly. Yes insulin needles, disposable, 31 gauge x 3/16 Needle 1 each by [facility].(Non-Drug; Combo Route) route daily. DX: E11.65. Tech Lite brand per insurance please. Thank you! Yes metFORMIN (Glucophage) 1,000 mg tablet Take 1 tablet by mouth 2 times daily. Yes Insulin Syringe-Needle U-100 (Insulin Syringe) 0.5 mL 29 gauge x 1/2 Syringe 1 each by [facility].(Non-Drug; Combo Route) route 6 times daily. Use as needed when pump malfunctions. Yes humaLOG 100 unit/mL Solution Inject up to 120-150 units subcutaneously daily via insulin pump Yes QUEtiapine (SEROquel) 100 mg Tablet Take 100 mg by mouth daily. She reports she is working on reduced dose. Yes Acetylcysteine 600 mg Capsule TAKE 2 CAPSULES BY MOUTH TWICE A DAY NEEDED Yes clotrimazole (Mycelex) 10 mg Edu HOLD 1 EDU IN MOUTH FIVE TIMES A DAY Yes nystatin (Mycostatin) 100,000 unit/mL Suspension TAKE 5 ML BY MOUTH 4 TIMES A DAY-- SWISH AND SWALLOW Yes ondansetron (Zofran) 4 mg Tablet Take 4 mg by mouth every 6 hours as needed. Yes naloxone (Narcan) 4 mg/actuation [place], Non-Aerosol SPRAY 1 SPRAY INTO BOTH NOSTRILS NEEDED FOR SUSPECTED OVERDOSE Yes albuteroL 90 mcg/actuation HFA Aerosol Inhaler INHALE 1 TO 2 PUFFS EVERY 4 TO 6 HOURS NEEDED FORWHEEZING Yes diclofenac (Voltaren) 1 % Gel APPLY A SMALL AMOUNT TO SKIN THREE TIMES A DAY NEEDED FOR PAIN Yes prazosin (Minipress) 1 mg Capsule TAKE 1 CAPSULES BY MOUTH FOR 2 DAYS THEN INCREASE TO 2 CAPSULES AT NIGHT (D/C CLONIDINE MONITOR FOR BLOOD PRESSURE DAILY) Yes Keto-Diastix Strip See Admin Instructions. Yes Vraylar 6 mg Capsule Take 1 capsule by mouth daily. 3 mg Yes labetaloL (Normodyne) 200 mg Tablet Take 200 mg by mouth Twice daily. Yes glucagon, Human Recombinant, (Glucagon Emergency Kit, human,) 1 mg Recon Soln Inject 1 mg into the muscle as needed. Needs refill Yes amLODIPine (Norvasc) 10 mg Tablet Take 10 mg by mouth Daily. Yes blood sugar diagnostic strips ([employer]right [employer] Verio test strips) Strip USE TO CHECK BLOOD GLUCOSE TWICE DAILY DX E11.9 Yes Blood-Glucose Meter Misc USE TO CHECK BLOOD GLUCOSE TWICE DAILY DX E11.9 Yes cholecalciferol, Vitamin D3, 50 mcg (2,000 unit) Capsule Take 1 tablet by mouth Daily. Yes cyclobenzaprine (Flexeril) 10 mg Tablet TAKE 1 TABLET BY MOUTH THREE TIMES A DAY NEEDED Yes irbesartan (AVAPRO) 150 mg Tablet Take 150 mg by mouth Daily. Yes Insulin Tresiba FlexTouch U-200 200 unit/mL (3 mL) Insulin Pen INJECT 50-60 UNITS UNDER THE SKIN NIGHTLY Patient not taking: Reported on 09/06/2023 Trulicity 3 mg/0.5 mL Pen Injector Inject 0.5 mLs subcutaneously once a week. To be dispensed while4.5mg dose pen is unavailable. Patient not taking: Reported on 09/06/2023 clonazePAM (KlonoPIN) 1 mg Tablet TAKE 1 TABLET BY MOUTH ONCE DAILY 1 HOUR PRIOR TO BED NEEDED gabapentin (Neurontin) 400 mg Capsule Take 400 mg by mouth 3 times daily. busPIRone (Buspar) 10 mg Tablet Take 10 mg by mouth daily. Allergies Allergen Reactions Lisinopril Ambien [Zolpidem] Other (See Comments) Patient does odd things, I.e. 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 Her boyfriend (in his 70s) in 2022. She lives in that home. daughter 9yo, daugher 24 and grandbaby 1. ROS: General: Weight reduced. HEENT: Vision as outlined above. Respiratory: Denies shortness of breath at rest. Cardiac: Denies recent chest pain. Gastrointestinal: Denies any issues with bowel movements. Urinary: Denies UTIs. No change in urinary symptoms. Extremities: Outlined in HPI. Endocrine: Outlined in HPI. Psych: her boyfriend who was in his 70s passed last year. She reports all is ok. OBJECTIVE BP 126/77 (BP Location (NBP): Right arm, Patient Position: Sitting, BP Cuff Sizes: Adult (25-34 cm)) Pulse (!) 108 Temp 37 ??C (98.6 ??F) (Temporal) Ht 152.4 cm (5') Wt 77.2 kg (170 lb 3.2 oz) SpO2 96% BMI 33.24 kg/m?? PHYSICAL EXAM: General: Alert and cooperative. Skin: No hypertrophy at pump sites. Skin normal texture and temperature. HEENT: Eyes PERRLA. Neck: No palpable thyroid nodules, no lymphadenopathy. Resp: Normal respiratory effort, no crackles or wheeze. Heart/CV: Regular rate and rhythm. Abdomen: soft, non-tender LABS: Recent Results (from the past 24 hour(s)) Vitamin D, 25-Hydroxy Result Value Ref Range 25-OH Vit D Total 30 21 - 100 ng/mL 25-OH Vit D Interp Sufficient TSH Result Value Ref Range TSH 1.02 0.27 - 4.20 mcIU/mL Comprehensive metabolic panel (non-fasting) Result Value Ref Range Glucose Lvl 80 65 - 199 mg/dL BUN 8 8 - 18 mg/dL Creatinine 1.13 0.70 - 1.20 mg/dL Sodium 139 135 - 145 mmol/L Potassium 4.1 3.5 - 5.0 mmol/L Chloride 101 98 - 107 mmol/L CO2 25 22 - 31 mmol/L Anion Gap 13 5 - 15 mmol/L Calcium 10.4 8.5 - 10.5 mg/dL Total Protein 7.4 6.1 - 8.0 g/dL Albumin 4.6 3.2 - 5.2 g/dL AST 16 0 - 30 unit/L ALT 19 0 - 30 unit/L Alk Phos 89 35 - 105 unit/L Total Bilirubin 0.4 0.2 - 1.3 mg/dL Estimated GFR 61 >=60 mL/min/1.73 m?? Lipid Panel (Reflex Direct LDL) Result Value Ref Range Chol, Total 209 mg/dL Triglycerides 214 mg/dL HDL 58 mg/dL LDL Cholesterol 108 mg/dL Lipid Interpretation See Note Hemoglobin A1c Result Value Ref Range Hemoglobin A1C 7.7 (H) 4.3 - 5.6 % Est Avg Gluc 174 mg/dL Vitamin B12 Result Value Ref Range Vitamin B-12 429 232 - 1,245 pg/mL U Albumin/Cre Ratio Result Value Ref Range U Creatinine 91 mg/dL ASSESSMENT: 1. Type 2 diabetes mellitus with hyperglycemia, with long-term current use of insulin Hemoglobin A1c U Albumin/Cre Ratio Comprehensive metabolic panel (non-fasting) TSH Vitamin B12 TSH Comprehensive metabolic panel (non-fasting) U Albumin/Cre Ratio Hemoglobin A1c Vitamin B12 2. Vitamin D deficiency (25vitD 14.5 on 05/16/13-> 29 on 07/07/19) Vitamin D, 25-Hydroxy Vitamin D, 25-Hydroxy 3. Mixed hyperlipidemia Lipid Panel (Reflex Direct LDL) Lipid Panel (Reflex Direct LDL) 4. Insulin pump in place This is a 48 yo female with type 2 diabetes poorly controlled. On medtornic pump, dexcom G7, off the long acting, on metformin, GLP-danna started last visit with success in bringing down insulin needs and now bgs and weight and A1c is lowest yet at 7.7%. Has increased danna last visit to 15. Troubles with access but trying [facility] today. Also reduced rates for night for basals in pump as she is having night time lows. Reviewed how to reduce further if issue continues. Vitd and b ok at this time. She has gotten injections for B in past. PLAN: Your average is amazing - 152! 73% in range this is our goal. Basal rates reduced for night lows 0000 - 2 ---> 1.75---> if still low 2-3 days change to 1.5 0700 - 2.2 same Add 8pm - 1.75----> if still low change to 1.5 Total new - 47.85 Danna sent to [facility]. 15 mg and if not able then you will use the 10mg. Go get labs today. Schedule 6 month - Feb 20 at 140pm Total time associated with visit: 50 min This includes lab order, lab review, counseling on diabetes and education related, exam, prescriptions, and documentation. CGM interpretation and review completed. Kristi Caicedo, UYEN, EQUITY SALES ASSISTANT-BC, CDE Section of Endocrinology * Kristi Caicedo APRN - 09/06/2023 1:00 PM EDT Images from the original note were not included. Patient: Guzman Jean Date: 09/06/2023 CGM 14 days of Continuous Glucose monitoring data was reviewed and interpreted today. Data was used to make recommendations to the diabetes regimen and care plan. Most in range some lows in night. documented in this encounter Plan of Treatment Upcoming Encounters Date Type Department Care Team (Late st Contact Info) Description 02/21/2024 1:40 PM EDT Office [place] [address] Kristi Caicedo APRN [facility] [place] [address] documented as of this encounter Procedures Procedure Name Priority Date/Time Associated Diagnosis Comments U ALBUMIN/CRE RATIO Routine 09/06/2023 1 :53 PM EDT Type 2 diabetes mellitus with hyperglycemia, with long-term current use of insulin VITAMIN D, 25-HYDROXY Routine 09/06/2023 1:36 PM EDT Vitamin D deficiency (25vitD 14.5 on 05/16/13-> 29 on 07/07/19) TSH Routine 09/06/2023 1:36 PM EDT Type 2 diabetes mellitus with hyperglycemia, with long-term current use of insulin HEMOGLOBIN A1C Routine 09/06/2023 1:36 PM EDT Type 2 diabetes mellitus with hyperglycemia, with long-term current use of insulin VITAMIN B12 Routine 09/06/2023 1:36 PM EDT Type 2 diabetes mellitus with hyperglycemia, with long-term current use of insulin LIPID PANEL (REFLEX DIRECT LDL) Routine 09/06/2023 1:36 PM EDT Mixed hyperlipidemia COMPREHENSIVE METABOLIC PANEL Routine 09/06/2023 1:36 PM EDT Type 2 diabetes mellitus with hyperglycemia, with long-term current use of insulin documented in this encounter Results * U Albumin/Cre Ratio (09/06/2023 1:53 PM EDT) Albumin / Creatinin Ratio, Urine Not Calculated 0 - 29 mcg/mg Cr [facility] Comment: Reference Ranges: <30 mcg/mg: [...] 2, 357? 362 Albumin, Urine <3.0 mg/L [facility] Creatinine, Urine 91 mg/dL [facility] Urine 09/06/2023 1:53 PM EDT 09/06/2023 2:09 PM EDT Narrative Resulting Agency Comment Spec In Lab Kristi Caicedo COAT JOINER LOCKSTITCH URINE ORDERABLE S [facility] [place] [address] * Vitamin B12 (09/06/2023 1:36 PM EDT) Vitamin B12 429 232 - 1,245 pg/mL [facility] Blood 09/06/2023 1:36 PM EDT 09/06/2023 2:01 PM EDT Narrative Resulting Agency Comment Spec In Lab Kristi Caicedo COAT JOINER LOCKSTITCH CHEMISTRY ORDER YOON Performing Organization Address City/[facility]/ZIP Co de Phone Number [facility] [place] [address] * Vitamin D, 25-Hydroxy (09/06/2023 1:36 PM EDT) Vitamin D Total 25 OH 30 21 - 100 ng/mL [facility] Vit D Interp Sufficient [facility] Blood 09/06/2023 1:36 PM EDT 09/06/2023 2:01 PM EDT Narrative Resulting Agency Comment Spec In Lab Kristi Caicedo COAT JOINER LOCKSTITCH CHEMISTRY ORDER YOON Performing Organization Address City/[facility]/ZIP Co de Phone Number [facility] [place] [address] * TSH (09/06/2023 1:36 PM EDT) Thyroid Stimulating Hormone 1.02 0.27 - 4.20 mcIU/mL [facility] Comment: Reference Interval (mcIU/mL): Females: ??First Trimester: 0.23-3.88 ??Second Trimester: 0.22-3.90 ??Third Trimester: 0.44-4.66 Blood 09/06/2023 1:36 PM EDT 09/06/2023 2:01 PM EDT Narrative Resulting Agency Comment Spec In Lab Kristi Caicedo COAT JOINER LOCKSTITCH CHEMISTRY ORDER YOON [facility] [place] [address] * Comprehensive metabolic panel (non-fasting) (09/06/2023 1:36 PM EDT) Glucose 80 65 - 199 mg/dL [facility] Comment:Diabetes: >=200 mg/d L plus symptoms Blood Urea Nitrogen 8 8 - 18 mg/dL [facility] Creatinine 1.13 0.70 - 1.20 mg/dL [facility] Sodium 139 135 - 145 mmol/L [facility] Potassium 4.1 3.5 - 5.0 mmol/L [facility] Comment: Please note: ??Patients with WBC >100,000 may have falsely elevated Potassium levels. ??For accurate Potassium quantification in these patients send serum separator tube (gold top) for subsequent determinations. ??Contact the Clinical Chemistry Laboratory if there are any questions. Chloride 101 98 - 107 mmol/L [facility] Carbon Dioxide 25 22 - 31 mmol/L [facility] Anion Gap 13 5 - 15 mmol/L [facility] Calcium 10.4 8.5 - 10.5 mg/dL [facility] Protein, Total 7.4 6.1 - 8.0 g/dL [facility] Albumin 4.6 3.2 - 5.2 g/dL [facility] Aspartate Aminotransferase 16 0 - 30 unit/L [facility] Alanine Aminotransferase 19 0 - 30 unit/L [facility] Alkaline Phosphatase 89 35 - 105 unit/L [facility] Bilirubin, Total 0.4 0.2 - 1.3 mg/dL [facility] Est Glomerular Filtration Rate 61 >=60 mL/min/1. 73 m?? [facility] Comment: This patient's estimated GFR was [...] Lab Kristi Caicedo APRN CHEMISTRY ORDER YOON [facility] [place] [address] * Lipid Panel (Reflex Direct LDL) (09/06/2023 1:36 PM EDT) Cholesterol, Total 209 mg/dL [facility] Comment: Desirable: ? <200 mg/dL Borderline High: 200-239 mg/dL Higher: ?>ji=196 mg/dL Triglyceride 214 mg/dL [facility] Comment: Normal: ?<150 mg/dL Borderline High: 150-199 mg/dL High: ?200-499 mg/dL Very High: ? >ly=737 mg/dL HDL Cholesterol 58 mg/dL [facility] Comment: Females: High Risk: <50 mg/dL Males: High Risk: <40 mg/dL LDL Cholesterol 108 mg/dL [facility] Comment: Desirable: ? <100 mg/dL Above Desirable: 100-129 mg/dL Borderline High: 130-159 mg/dL High: ?160-189 mg/dL Very High: ? >we=188 mg/dL Lipid Interpretation See Note [facility] Comment: It is important to review [...] ACC/AHA Guidelines (most recently Yadiel et al. [facility] 01/30/22): For individuals with atherosclerotic cardiovascular disease (ASCVD)or LDL >uo=109 mg/dL, use a high-intensity statin (40-80 mg [...] Resulting Agency Comment Spec In Lab Kristi H Kassels COAT JOINER LOCKSTITCH CHEMISTRY ORDER YOON [facility] [place] [address] * (ABNORMAL) Hemoglobin A1c (09/06/2023 1:36 PM EDT) Hemoglobin A1c 7.7(H) 4.3 - 5.6 % [facility] Comment: Reference Range: 4.3 - [...] Mellitus, Diabetes Care 2013; 36: Suppl. 1, J37-47 Estimated Average Glucose 174 mg/dL [facility] Blood 09/06/2023 1:36 PM EDT 09/06/2023 2:01 PM EDT Narrative Resulting Agency Comment Spec In Lab Kristi Sunshine Sascha COAT JOINER LOCKSTITCH CHEMISTRY ORDER YOON Performing Organization Address City/[facility]/ZIP Co de Phone Number [facility] [place] [address] documented in this encounter Visit Diagnoses Diagnosis Type 2 diabetes mellitus with hyperglycemia, with long-term current use of insulin Vitamin D deficiency (25vitD 14.5 on 05/16/13-> 29 on 07/07/19) Unspecified vitamin D deficiency Mixed hyperlipidemia Insulin pump in place Insulin pump status documented in this encounter Care Teams Sand Temperer Relationship Specialty Start Date End Date Jossie Patton APRN [address] [place] [address] PCP - General Family Medicine 04/19/20 documented as of this encounter
--- OUTSIDE RECORDS SUMMARY | 2024-02-14 15:16 | XMS_ITS | Encounter Summary ---
Author Organization [facility] [place] [address] Care Team Providers Care Sister Superior Name Role Phone Jossie Patton APRN Primary Care Provider [phone] Reason for Visit * Reason Comments Medication Refill Encounter Details Date Type Department Care Team (Late Contact Info) Description 07/03/2023 Refill [place] [phone] Kristi Caicedo [facility] [place] [address] Social History Tobacco Use Types Packs/Day Years [...] 1:40 PM EDT Office [place] [phone] Kristi Caicedo [facility] [place] [address] documented as of this encounter Visit Diagnoses Not on filedocumented in this encounter Care Teams Sister Superior Relationship Specialty Start Date End Date Jossie Patton APRN [address] [place] [address] PCP - General Family Medicine 04/19/20 documented as of this encounter
--- OUTSIDE RECORDS SUMMARY | 2024-02-14 15:16 | XMS_ITS | Encounter Summary ---
Author Organization [facility] [place] [address] Care Team Providers Care Protection Analyst Name Role Phone Jossie Patton APRN Primary Care Provider [phone] Reason for Visit * Reason Onset Date Comments Medication Refill 05/14/2022 Encounter Details Date Type Department Care Team (Late Contact Info) Description 05/14/2022 Telephone [place] [phone] Blas Roach MD [facility] [place] [address] Medication Refill Social History Tobacco Use Types [...] 1:40 PM EDT Office Visit [place] [phone] Kristi Caicedo APRN [facility] [place] [address] documented as of this encounter Visit Diagnoses Diagnosis Uncontrolled type 2 diabetes mellitus with hyperglycemia documented in this encounter Care Teams Protection Analyst Relationship Specialty Start Date End Date Jossie Patton APRN [address] [place] [address] PCP - General Family Medicine 04/19/20 documented as of this encounter
--- OUTSIDE RECORDS SUMMARY | 2024-02-14 15:16 | XMS_ITS | Encounter Summary ---
Author Organization Formerly [facility] [place] [address] Care Team Providers Care Washing Machine Assembler Name Role Phone Jossie Patton APRN Primary Care Provider [phone] Reason for Visit * Reason Onset Date Comments Medication Refill 07/10/2022 Encounter Details Date Type Department Care Team (Late st Contact Info) Description 07/10/2022 Refill [place] [address] Kristi Caicedo CHILD WELFARE ASSISTANT [facility] [place] [place] [address] Social History Tobacco Use Types Packs/Day Years [...] Telephone Encounter - Alexandr Deras RN - 07/20/2022 8:14 AM EDT [facility] message to patient notifying her of the new rx. * Telephone Encounter - Alexandr Deras RN - 07/11/2022 10:34 AM EDT In addition to this refill request, patient called and asked to increase the dose. She says 10mg isgoing so well, no side effects. She would like to increase to the 12.5mg dose. documented in this encounter Plan of Treatment Upcoming Encounters Date Type Department Care Team (Late st Contact Info) Description 02/21/2024 1:40 PM EDT Office Visit [place] [address] Kristi Caicedo APRN [facility] [place] [address] documented as of this encounter Visit Diagnoses Not on filedocumented in this encounter Care Teams Washing Machine Assembler Relationship Specialty Start Date End Date Jossie Patton APRN [address] [place] [address] PCP - General Family Medicine 04/19/20 documented as of this encounter
--- OUTSIDE RECORDS SUMMARY | 2024-02-14 15:16 | XMS_ITS | Encounter Summary ---
Author Organization Formerly [facility] [place] [address] Care Team Providers Care Regulatory Affairs Coordinator Name Role Phone PoojaJossie karimi Gabrielle GARCIA Primary Care Provider Reason for Visit * Reason Comments Follow-up R HUMERUS FX S/P HIRAL F DOI 09/18/21 DOS 09/28/21 (LAURA) Encounter Details Date Type Department Care Team (Late st Contact Info) Description 02/02/2022 2:30 PM EDT Office [place] [address] Geronimo Giron MD [facility] DR [place] [address] Closed fracture of shaft of right humerus [...] Sign Reading Time Taken Comments Blood Pressure 145/97 02/02/2022 1:41 PM EDT Pulse 115 02/02/2022 1:41 PM EDT Temperature - - Respiratory Rate - - Oxygen Saturation - - Inhaled Oxygen Concentration - - Weight 86.6 kg (191 lb) 02/02/2022 1:41 PM EDT Height 152.4 cm (5') 02/02/2022 1:41 PM EDT Body Mass Index 37.3 02/02/2022 1:41 PM EDT documented in this encounter Progress Notes * Geronimo Giron MD - 02/02/2022 2:30 PM EDT [facility] Guzman Jean returns for follow-up 4months s/p right humerus ORIF on 09/28/21. She reports she isdoing well. She has no pain. She is using her arm for all her normal activities without any issues.Has had no issues with her incision. Denies any fevers night sweats or chills. Her blood sugars have been much better controlled with her insulin pump and glucose monitor. She does have some numbnessjust lateral to her distal incision. No numbness or tingling distally. She has no other complaints today, and has a negative review of systems. No flowsheet data found. Physical Exam: In general she is a well appearing 46 y.o. female who is no acute distress, and was calm and cooperative throughout the examination. Examination of the right arm reveals the incision is clean, dry, and intact with sutures in place. Minimal to moderate swelling. No erythema or signs of infection. Had pressure sores over her skin at the time of surgery which are resolved. EPL/FPL/Intrinsics are intact 5/5 strength. Capillary refill is < 3 seconds. Sensation to light touch is intact throughout,except for decreased sensation in a small ~5cm`5cm area just lateral to her distal aspect of her incision. Full shoulder, elbow ROM. Radiographs: 2 views of the right humerus were obtained and reviewed. This demonstrates maintained alignment andreduction compared to prior radiographs. There are no changes in implant position or evidence of implant failure or loss of fixation. Fracture lines are obliterated, there is joaquin healing. No other osseous abnormalities. Assessment and Plan: Guzman Jean is a 46 y.o. female who returns for follow-up 4months s/p surgery. She is doing well. She is healing appropriately. -Weight Bearing Status: WBAT -Continue ROM of shoulder and elbow, wrist and fingers -Continue diabetes management -Follow-up in 4months for clinical evaluation and xrays of the right humerus This plan was discussed with the patient and she is in agreement. All of the patient's questions were answered. Geronimo Giron MD Department of Orthopaedic Surgery 02/02/22 documented in this encounter Plan of Treatment Upcoming Encounters Date Type Department Care Team (Late st Contact Info) Description 02/21/2024 1:40 PM EDT Office [place] [address] Kristi Caicedo APRN [facility] [place] [address] documented as of this encounter Results * XR Humerus Right [...] who have questions please contact the health health care social worker that requested your imaging first. ? Narrative [...] patients who have questions please contactthe health health care social worker that requested your imaging first. Geronimo Giron MD IMG DX ORDERABLES documented in this encounter Visit Diagnoses Diagnosis Closed fracture of shaft of right humerus with routine healing, unspecified fracture morphology, subsequent encounter Closed fracture of shaft of right humerus with routine healing, unspecified fracture morphology, subsequent encounter documented in this encounter Care Teams Regulatory Affairs Coordinator Relationship Specialty Start Date End Date Jossie Patton APRN [address] [place] [address] PCP - General Family Medicine 04/19/20 documented as of this encounter
--- OUTSIDE RECORDS SUMMARY | 2024-02-14 15:16 | XMS_ITS | Encounter Summary ---
Author Organization Formerly [facility] [address] Care Team Providers Care Radar Repairer Name Role Phone Jossie Patton APRN Primary Care Provider [phone] Encounter Details Date Type Department Care Team (Late st Contact Info) Description 08/14/2022 10:40 AM EDT TH Visit (TeleHealth) [place] [phone] Kristi Caicedo APRN [facility] [place] [address] Type 2 diabetes mellitus with hyperglycemia, with long-term current use of insulin Social History Tobacco Use Types Packs/Day Years [...] * Patient Instructions* Kristi Caicedo APRN - 08/14/2022 10:40 AM EDT Pump Settings changes in bold Basal: 12 am 2.00 7 am 2.10 change to 2.2 Total basal 49.700- new total 51.2 ICR 1:5 ISF 1:20 BGT 12 am 100 (140) 5 am 100 (120) 8:30 pm 100 (140) Increased your monjaro to 15 mg In person apt on October 26 and get labs done prir. documented in this encounter Progress Notes * Kristi Caicedo APRN - 08/14/2022 10:40 AM EDT Name: Guzman Jean : 1975 PCP: Jossie Patton APRN Date: 08/14/22 Reason for visit: Guzman Jean is a 47 y.o. year old female with Diabetes TYPE 2 referred by Jossie Patton for FOLLOW UP to the [facility] endocrine clinic for diabetes services. This visit was completed on the telehealth Patient verified Name and Date of . Patient reports she is location. Patient consents to the visit being on the telephone. Type 2 diabetes with use of pump, tresiba (to reduce insuiln amount and needs in pump), metformin and trulicity -->Dr. Roach changed to Mounsuleiman last visit started and increased. At 12.5 now . ?? PMH: HDL- on crestor PCOS aldactone adjusted dose to 100mg. Has fibromalgia, bipolar. She Just reduced seroquel for sleep and now bumped back up. ?? TODAY PCP 8.9% A1c she says reduced from 11s after starting monjaro. She would like to increase further. No change in weight but improved in numbers. She is now off the tresiba that was to help reduce insulin needs in pump. Last 3 Hemoglobin A1Cs Lab Results Component Value Date HA1C 9.8 (H) 03/23/2022 HA1C 11.9 (H) 09/27/2021 HA1C 10.0 (H) 05/23/2020 Diabetes Diagnosis Date: diagnosed age 20. Diagnosed type 2. Brother has type 1 and is on pump. ?? Medication Regimen for Diabetes Care: ?? Off tresiba.that she was taking at night to reduce insulin needs Metformin 2000 once daily Monjaro 12.5mg. -wants increase to 15 Can't take victoza - makes vomit. ?? Medtronic 670G insulin pump??- uses Humalog - now on 630G Pump settings: ?? Basal: 12 am 2.00 7 am 2.10 Total basal 49.700 ?? ICR 1:5 ?? ISF 1:20 ?? BGT 12 am 100 (140) 5 am 100 (120) 8:30 pm 100 (140) ? Glucose Monitoring: Dexcom G6 14 days review Of data Average 222 29% In range and 0%low ?? Hypoglycemia Severe Hypoglycemia in Past: no Has had 2 lows in last couple months. ?? Hyperglycemia History of DKA: Yes/dehydrate Had ketones at home. Recent ED Apr 2022. [facility]. ?? Diet Following type of diet: none Carb counting: yes Last visit with director digital marketing: Arabella Diet Recall: B- eggs and coffee Skip lunch Eats dinner. Not snacking ?? Weight 197 Exercise Not exercising. ?? History of Diabetes Related Complications and Prevention Eyes: Last Eye Exam:05/2021-and again august or september not scheduled next History of Diabetes Retinopathy: no ?? Dental Care in last 6 months: yes using [employer] ?? Kidney function: no nephropathy Last urine microalbumin: ?? Latest Reference Range & Units 05/23/20 08:21 03/23/22 10:41 U Albumin Conc, Random mg/L <3.0 <3.0 ?? On PHILIPPE/ARB:yes Casing Inspector: none ?? Cardio: Patient heart attack in past: no No stroke Aspirin: no No data found. Last cholesterol: ?? Latest Reference Range & Units 05/23/20 08:20 03/23/22 10:45 LDL Chol Direct mg/dL 96 151 ?? Cholesterol medication: crestor ?? Feet: History of Neuropathy: yes Current status of Neuropathy: some intermittent pain in legs and numbness in legs. Gabapentin in past. Pizza Maker: not discussed ?? Flu Vaccination: 2021 Pneumonia vaccine: COVID #4 shot Fall 2021 ?? Smoker/tobacco use: Yes cigs pack a day Alcohol use: none On clonopin. Conception: Boyfriend is 78 and tubes are tied. Has not had intercourse in 5 years. No past medical history on file. Medications 03/23/22 0947 Medication Sig Taking? tirzepatide 12.5 mg/0.5 mL Pen Injector Inject 12.5 mg subcutaneously once a week. spironolactone (Aldactone) 100 mg tablet Take 1 tablet by mouth daily. Trulicity 3 mg/0.5 mL Pen Injector Inject 0.5 mLs subcutaneously once a week. To be dispensed while4.5mg dose pen is unavailable. Insulin Syringe-Needle U-100 (Insulin Syringe) 0.5 mL 29 gauge x 1/2 Syringe 1 each by [facility] [place] [place].(Non-Drug; Combo Route) route 6 times daily. Use as needed when pump malfunctions. dulaglutide (Trulicity) 4.5 mg/0.5 mL Pen Injector Inject 0.5 mLs subcutaneously once a week. Indications: type 2 diabetes mellitus humaLOG 100 unit/mL Solution Inject up to 120-150 units subcutaneously daily via insulin pump metFORMIN (Glucophage) 1,000 mg Tablet Take 1 tablet by mouth 2 times daily. Insulin Tresiba FlexTouch U-200 200 unit/mL (3 mL) Insulin Pen Inject 50-60 Units subcutaneously nightly. Indications: type 2 diabetes mellitus QUEtiapine (SEROquel) 100 mg Tablet Take 50 [...] FOR FIVE DAYS naloxone (Narcan) 4 mg/actuation [place], Non-Aerosol SPRAY 1 SPRAY INTO BOTH NOSTRILS [...] gauge x 3/16 Needle 1 each by Mis.(Non-Drug; Combo Route) route daily. glucagon, Human Recombinant, [...] boyfriend and daughter 8yo. ROS: General: Weight stable. HEENT: Vision as outlined above. Respiratory: Denies shortness of breath at rest. Cardiac: Denies recent chest pain. Gastrointestinal: Denies any issues with bowel movements. Urinary: . Denies UTIs. No change in urinary symptoms. Extremities: Outlined in HPI. Endocrine: Outlined in HPI. Psych: overall sleeping better again OBJECTIVE There were no vitals taken for this visit. PHYSICAL EXAM: General: Alert and cooperative. No results found for this or any previous visit (from the past 24 hour(s)). ASSESSMENT: 1. Type 2 diabetes mellitus with hyperglycemia, with long-term current use of insulin This is a 47 yo female with type 2 diabetes poorly controlled. On pump, off the long acting, metformin, GLP-monjaro started last visit with success in bringing down insulin needs and bgs but no weight change yet. Will increase today to 15. Also changed pump settings to give just a bit more. I am recommending this patient continue CGM [...] CGM regimen and diabetes treatment plan. PLAN: Pump Settings changes in bold Basal: 12 am 2.00 7 am 2.10 change to 2.2 Total basal 49.700- new total 51.2 ICR 1:5 ISF 1:20 BGT 12 am 100 (140) 5 am 100 (120) 8:30 pm 100 (140) Increased your monjaro to 15 mg In person apt on October 26 and get labs done prir. Total time associated with visit: 50 min This includes review of medication and time on telehealth with patient, lab order and documentation. Kristi Caicedo DNP, INSPECTOR TOOL-BC, CDE Section of Endocrinology documented in this encounter Plan of Treatment Upcoming Encounters Date Type Department Care Team (Late st Contact Info) Description 02/21/2024 1:40 PM EDT Office Visit [place] [address] Kristi Caicedo APRN [facility] [place] [address] documented as of this encounter Visit Diagnoses Diagnosis Type 2 diabetes mellitus with hyperglycemia, with long-term current use of insulin documented in this encounter Care Teams Radar Repairer Relationship Specialty Start Date End Date Jossie Patton APRN [address] [place] [address] PCP - General Family Medicine 04/19/20 documented as of this encounter
--- OUTSIDE RECORDS SUMMARY | 2024-02-14 15:16 | XMS_ITS | Encounter Summary ---
Author Organization [facility] [place] [address] Care Team Providers Care Cheesemaking Laborer Name Role Phone Jossie Patton APRN Primary Care Provider [phone] Reason for Visit * Reason Comments Medication Refill Encounter Details Date Type Department Care Team (Late Contact Info) Description 03/31/2023 Refill [place] [phone] Blas Roach MD [facility] [place] [address] [place] [address] Social History Tobacco Use Types Packs/Day Years [...] PM EDT Office Visit [place] [address] Kristi Caicedo APRN [facility] [place] [address] documented as of this encounter Visit Diagnoses Not on filedocumented in this encounter Care Teams Cheesemaking Laborer Relationship Specialty Start Date End Date Jossie Patton APRN [address] [place] [address] PCP - General Family Medicine 04/19/20 documented as of this encounter
--- OUTSIDE RECORDS SUMMARY | 2024-02-14 15:16 | XMS_ITS | Encounter Summary ---
Author Organization Formerly [facility] [place] [address] Care Team Providers Care Quill Fixer Name Role Phone Jossie Patton APRN Primary Care Provider [phone] Reason for Visit * Reason Onset Date Comments Medication Refill 08/06/2023 Encounter Details Date Type Department Care Team (Late st Contact Info) Description 08/06/2023 Refill [place] [address] Kristi Caicedo APRN [facility] [place] [address] Social History Tobacco Use Types Packs/Day Years [...] encounter Miscellaneous Notes * Telephone Encounter - Tiara Wells - 08/08/2023 8:17 AM EDT Please call to let her know when this has been sent to pharmacy. Patient is now out of medication * Telephone Encounter - Kamar Curiel - 08/08/2023 8:07 AM EDT Patient called again asking if prescription has been sent to [facility]. * Telephone Encounter - Tiara Wells - 08/07/2023 10:53 AM EDT Patient called to make sure [facility] [address] [id number]. [facility] does not have it in stock. * Telephone Encounter - Rhonda Ott LPN - 08/06/2023 10:22 AM EDT Requested Prescriptions Pending Prescriptions Disp Refills tirzepatide (Mounjaro) 10 mg/0.5 mL Pen Injector 2 mL 3 Sig: Inject 10 mg subcutaneously once a week. Until the 15mg dose pens become available again. Last office visit: 08/14/2022 follow up 09/06/2023 Increased your monjaro to 15 mg Last refill: 07/04/2023 documented in this encounter Plan of Treatment Upcoming Encounters Date Type Department Care Team (Late st Contact Info) Description 02/21/2024 1:40 PM EDT Office Visit [place] [address] Kristi Caicedo APRN [facility] [place] [address] documented as of this encounter Visit Diagnoses Not on filedocumented in this encounter Care Teams Quill Fixer Relationship Specialty Start Date End Date Jossie Patton APRN [address] [place] [address] PCP - General Family Medicine 04/19/20 documented as of this encounter
--- OUTSIDE RECORDS SUMMARY | 2024-02-14 15:16 | XMS_ITS | Encounter Summary ---
[facility] [place] [address] Care Team Providers Care Clearance Representative Name Role Phone Jossie Patton APRN Primary Care Provider [phone] Encounter Details Date Type Department Care Team (Latest Contact Info) Description 03/16/2022 Travel Social History Tobacco Use Types Packs/Day [...] 1:40 PM EDT Office [place] [address] Kristi Caicedo APRN [facility] [place] [address] documented as of this encounter Visit Diagnoses Not on filedocumented in this encounter Care Teams Clearance Representative Relationship Specialty Start Date End Date Jossie Patton APRN [address] [place] [address] PCP - General Family Medicine 04/19/20 documented as of this encounter
--- OUTSIDE RECORDS SUMMARY | 2024-02-14 15:16 | XMS_ITS | Encounter Summary ---
Author Organization [facility] [address] Care Team Providers Care Executive Communications Manager Name Role Phone Jossie Patton APRN Primary Care Provider [phone] Reason for Visit * Reason Comments Medication Refill Encounter Details Date Type Department Care Team (Late Contact Info) Description 04/13/2023 [place] [address] Blas Roach MD [facility] [place] [address] Social History Tobacco Use Types Packs/Day Years [...] 1:40 PM EDT Office [place] [address] Kristi Caicedo APRN [facility] [address] documented as of this encounter Visit Diagnoses Not on filedocumented in this encounter Care Teams Executive Communications Manager Relationship Specialty Start Date End Date Jossie Patton APRN [address] [place] [address] PCP - General Family Medicine 04/19/20 documented as of this encounter
--- OUTSIDE RECORDS SUMMARY | 2024-02-14 15:16 | XMS_ITS | Encounter Summary ---
Author Organization [facility] [place] [address] Care Team Providers Care Tile Picker Name Role Phone Jossie Patton APRN Primary Care Provider [phone] Reason for Visit * Reason Comments Medication Refill Encounter Details Date Type Department Care Team (Late Contact Info) Description 09/05/2023 [place] [phone] Kristi Caicedo [facility] [place] [place] [address] Social History Tobacco Use Types Packs/Day Years [...] 1:40 PM EDT Office [place] [address] Kristi Caicedo [facility] [place] [place] [address] documented as of this encounter Visit Diagnoses Not on filedocumented in this encounter Care Teams Tile Picker Relationship Specialty Start Date End Date Jossie Patton APRN [address] [place] [address] PCP - General Family Medicine 04/19/20 documented as of this encounter
--- OUTSIDE RECORDS SUMMARY | 2024-02-14 15:16 | XMS_ITS | Encounter Summary ---
Author Organization Formerly [facility] [place] [address] Care Team Providers Care Inter Com Installer Name Role Phone Jossie Patton APRN Primary Care Provider [phone] Encounter Details Date Type Department Care Team (Late st Contact Info) Description 03/29/2022 Telephone [facility] [address] [place] [phone] Stacy Ndiaye Social History Tobacco Use Types Packs/Day Years [...] 1:40 PM EDT Office [place] [address] Kristi Caicedo APRN [facility] [place] [address] documented as of this encounter Visit Diagnoses Not on filedocumented in this encounter Care Teams Inter Com Installer Relationship Specialty Start Date End Date Jossie Patton APRN [address] [place] [address] PCP - General Family Medicine 04/19/20 documented as of this encounter
--- OUTSIDE RECORDS SUMMARY | 2024-02-14 15:16 | XMS_ITS | Encounter Summary ---
Author Organization [facility] [place] [address] Care Team Providers Care Triage Nurse Name Role Phone PoojaJossie karimi Gabrielle GARCIA Primary Care Provider [phone] Encounter Details Date Type Department Care Team (Late st Contact Info) Description 02/06/2022 [place] [address] Alexandr Deras RN Social History Tobacco Use [...] Telephone Encounter - Alexandr Deras RN - 02/06/2022 1:37 PM EDT Returned call and relayed this to patient. She took this down and will make sure they match what she entered. She will also call to schedule follow up soon. * Telephone Encounter - Alexandr Deras RN - 02/06/2022 9:29 AM EDT Patient left voicemail that her dog ate her pump. She has a new pump. She tried to copy the pump settings. She wanted to confirm with us to be sure she had the correct settings. From last office note on 06/06/21 with Isamar Hoff: Basal rates: [place] - ?7AM?2u/hr 7am?[place] ?2.1 u/hr ?? CR 1:5 20 Also Tresiba U200 50 units in PM for additional basal coverage. documented in this encounter Plan of Treatment Upcoming Encounters Date Type Department Care Team (Late st Contact Info) Description 02/21/2024 1:40 PM EDT Office [place] [address] Kristi Caicedo APRN [facility] [place] [address] documented as of this encounter Visit Diagnoses Not on filedocumented in this encounter Care Teams Triage Nurse Relationship Specialty Start Date End Date Jossie Patton APRN [address] [place] [address] PCP - General Family Medicine 04/19/20 documented as of this encounter
--- OUTSIDE RECORDS SUMMARY | 2024-02-14 15:16 | XMS_ITS | Encounter Summary ---
Author Organization [facility] [place] [address] Care Team Providers Care Rn Appeals Name Role Phone Pooja, Jossie Gabrielle GARCIA Primary Care Provider [phone] Encounter Details Date Type Department Care Team (Late st Contact Info) Description 06/14/2022 Telephone [place] [address] Kimberley Bledsoe CMA Social History Tobacco Use Types Packs/Day Years [...] Telephone Encounter - Kimberley Bledsoe CMA - 06/14/2022 3:18 PM EST Faxed the signed copy of the Critical access hospital necessity form for medical supplies and equipment to [facility] department of health access for the minimed pump. Received conformation that the fax was sent on 06/14/22 documented in this encounter Plan of Treatment Upcoming Encounters Date Type Department Care Team (Late st Contact Info) Description 02/21/2024 1:40 PM EDT Office Visit [place] [phone] Kristi Caicedo APRN [facility] [place] [address] documented as of this encounter Visit Diagnoses Not on filedocumented in this encounter Care Teams Rn Appeals Relationship Specialty Start Date End Date Jossie Patton APRN [address] [place] [address] PCP - General Family Medicine 04/19/20 documented as of this encounter
--- OUTSIDE RECORDS SUMMARY | 2024-02-14 15:16 | XMS_ITS | Encounter Summary ---
[facility] [place] [address] Care Team Providers Care Bioinformatics Research Technician Name Role Phone Jossie Patotn APRN Primary Care Provider [phone] Encounter Details Date Type Department Care Team (Late Contact Info) Description 08/08/2023 Orders [place] [phone] Kristi Caicedo [facility] [place] [address] [place] [address] Social History Tobacco Use Types Packs/Day Years [...] 1:40 PM EDT Office [place] [phone] Kristi Caicedo [facility] [place] [place] [address] documented as of this encounter Visit Diagnoses Not on filedocumented in this encounter Care Teams Bioinformatics Research Technician Relationship Specialty Start Date End Date Jossie Patton APRN [address] [place] [id number] PCP - General Family Medicine 04/19/20 documented as of this encounter
--- OUTSIDE RECORDS SUMMARY | 2024-02-14 15:16 | XMS_ITS | Encounter Summary ---
Author Organization [facility] [place] [address] Care Team Providers Care Commercial Kitchen Service Technician Name Role Phone Pooja Jossie Gabrielle GARCIA Primary Care Provider [phone] Encounter Details Date Type Department Care Team (Late st Contact Info) Description 06/28/2022 Telephone [place] [address] Kimberley Bledsoe CMA Social History [...] Telephone Encounter - Kimberley Bledsoe CMA - 06/28/2022 9:08 AM EST Faxes singed copy of the Department [facility] Access for medical supplies and equipment Received conformation that the fax was sent on 06/25/22 (this was a duplicate of a previous form that we received earlier) documented in this encounter Plan of Treatment Upcoming Encounters Date Type Department Care Team (Late st Contact Info) Description 02/21/2024 1:40 PM EDT Office [place] [address] Kristi Caicedo APRN [facility] [place] [address] [place] [address] documented as of this encounter Visit Diagnoses Not on filedocumented in this encounter Care Teams Commercial Kitchen Service Technician Relationship Specialty Start Date End Date Jossie Patton APRN [address] [place] [address] PCP - General Family Medicine 04/19/20 documented as of this encounter
--- OUTSIDE RECORDS SUMMARY | 2024-02-14 15:17 | XMS_ITS | Encounter Summary ---
[place] [address] Care Team Providers Care Belling Machine Operator Name Role Phone PoojaJossie karimi Gabrielle GARCIA Primary Care Provider [phone] Reason for Visit * Reason Onset Date Comments Medication Refill 10/02/2021 Encounter Details Date Type Department Care Team (Late st Contact Info) Description 10/02/2021 Refill [place] [phone] Ellen Williamsno, RN Open fracture of proximal end of right humerus, unspecified fracture morphology, initial encounter Social History Tobacco Use Types Packs/Day Years Used Date Smoking Tobacco: Every Day Cigarettes Smokeless Tobacco: Never Comments:marijuana occasiona lly Sex and Gender Information Value Date Recorded Sex Assigned at Not on file Gender Identity Not on file Sexual Orientation Not on file documented as of this encounter Miscellaneous Notes * Telephone Encounter - Arlene Olmos - 10/02/2021 3:40 PM EDT Patient calling to let us know that the pictures have been uploaded of her hand and was also wondering about the medication status. * Telephone Encounter - Ellen Williamson, RN - 10/02/2021 8:51 AM EDT Images from the original note were not included. Returned call to this patient for a second time requesting patient send in a Photo of her right Hand so Dr. Giron may evaluate. Requested call back to option 3 Ellen Williamson RN [facility] [place] [place] Medication Refill Request Surgery/Injury/Provider: 09/28/21 ORIF HUMERAL SHAFT FX. (WRVU 12.12) - Right MODIFIER: 3.5MM LCP PERIARTICULAR PROXIMAL HUMERUS PLATE SET SYNTHES - Right MODIFIER LOCKING SMALL FRAGMENT SYNTHES Medication being requested: oxycodone Query: Last refill or Original Rx: 09/29/21 Seen within 30 days (if no, than when): Follow Up: 10/18/21 Dr. Giron How is this medication being used currently: Patient is taking 2 tablets every 4 hours, Patient states she needs 2 to control the pain. Patient pain is located at top of right arm, pain goes around to the back and up to shoulder. Patient can wiggle her fingers however tips and middle of finger where you bend hand is black. Temperature same as other hand. Patient states that she does have tingling and numbness in all her fingers. Patient is icing for 20 minutes at a time and is elevating above the level of the heart. Patient using sling prn as she does not want arm to get too stiff. Did request patient upload picture of hand to My account. Pain level: 8 /10 Bowel concerns: Just took senokot today as has not had a bm Other pain medications used and how: Tylenol Yes tid 1000mg Gabapentin No Naproxen No OTHER enoxaparin Medication Taper Plan: Taper to the lowest effective maintenance dose, . Continue additional scheduled pain medication along with RICE. Teaching done regarding: taking nonnarcotic pain medications, taking the least amount of opioid needed for the least amount of time for adequate pain management and tapering of opioids with verbalized understanding by the patient. Requested Prescription to be sent electronically to [facility] (location). Prescription prepped and pended for Dr. Giron to (provider) review. The patient knows how to contact orthopaedics if any further questions or concerns occur. Ellen Williamson RN [facility] [place] documented in this encounter Plan of Treatment Upcoming Encounters Date Type Department Care Team (Late st Contact Info) Description 02/21/2024 1:40 PM EDT Office Visit Endocrinology at [place] [phone] Kristi Caicedo APRN [facility] [place] [address] documented as of this encounter Visit Diagnoses Diagnosis Open fracture of proximal end of right humerus, unspecified fracture morphology, initial encounter documented in this encounter Care Teams Belling Machine Operator Relationship Specialty Start Date End Date Jossie Patton APRN [address] [place] [address] PCP - General Family Medicine 04/19/20 documented as of this encounter
--- OUTSIDE RECORDS SUMMARY | 2024-02-14 15:17 | XMS_ITS | Encounter Summary ---
Author Organization [facility] [place] [address] Care Team Providers Care Wound Nurse Name Role Phone Jossie Patton Gabrielle GARCIA Primary Care Provider [phone] Encounter Details Date Type Department Care Team (Latest Contact Info) Description 10/11/2021 11:11 AM EDT - 10/11/2021 11:59 PM EDT Hospital Encounter XRay at [address] [place] [address] Geronimo Giron MD [facility] [place] [address] Open fracture of proximal end of right humerus, unspecified fracture morphology, initial encounter Discharge Disposition: Home Social History Tobacco [...] as needed. 06/27/2021 naloxone (Narcan) 4 mg/actuation [place], Non-Aerosol SPRAY 1 SPRAY INTO BOTH NOSTRILS [...] spironolactone (ALDACTONE) 50 mg Tablet 09/26/2021 03/23/2022 enoxaparin (Lovenox) 40 mg/0.4 mL Syringe Inject 0.4 mLs subcutaneously nightly for 27 days. 10.8 mL 09/29/2021 10/26/2021 senna (Senna) 8.6 mg Tablet Take 1 tablet by mouth 2 times daily as needed for Constipation for up to 30 days. 09/29/2021 10/29/2021 oseltamivir (Tamiflu) 75 mg Capsule TAKE 1 [...] gauge x 3/16 Needle 1 each by [facility]Non-Drug; Combo Route) route daily. 90 each 3 01/31/2021 10/29/2022 ranitidine (ZANTAC) 150 mg Tablet Take 300 mg by mouth Twice daily. 02/18/2023 metFORMIN (GLUCOPHAGE) 1,000 mg Tablet Take 2,000 mg by mouth daily. 05/16/2014 03/23/2022 documented as of this encounter Plan of Treatment Upcoming Encounters Date Type Department Care Team (Late st Contact Info) Description 02/21/2024 1:40 PM EDT Office Visit [place] [address] Kristi Caicedo APRN [facility] [place] [address] documented as of this encounter Procedures Procedure Name Priority Date/Time Associated Diagnosis Comments XR HUMERUS RIGHT Routine 10/11/2021 11:2 7 AM EDT Open fracture of proximal end of right humerus, unspecified fracture morphology, initial encounter documented in this encounter Results * XR Humerus Right (Generic) (10/11/2021 11:27 AM EDT) Anatomical Region Laterality Modality Arm Right Digital Radiogra phy Impressions 10/11/2021 1:52 PM EDT Healing humeral fracture status post ORIF. No hardware complication. Thank you for letting us participate in the care of this patient. ??If you are a health care provider and have any questions regarding this report, please contact the number below. ??For patients who have questions please contact the health pharmacist critical care that requested your imaging first. ? Narrative 10/11/2021 1:52 PM EDT EXAMINATION: XR HUMERUS RIGHT (GENERIC) CLINICAL HISTORY: R HUMERUS FX S/P ORIF DOI 09/18/21 DOS 09/28/21, assess healing and alignment (as entered by ordering provider in the order requisition) TECHNIQUE: AP and lateral views of the right humerus. COMPARISON: Right humerus radiographs 09/28/2021 and 09/27/2021. FINDINGS: Status post ORIF of healing humeral shaft fracture. Fracture lucency remains visible, but there is some early callus formation at the fracture site resulting in blurring of the fracture lucency on the lateral view. There is soft tissue swelling of the upper arm. Hardware is intact with no screw backout. Prominent osteophyte of the ulnar trochlear compartment of the elbow. Procedure Note Wanda Mcnamara MD - 10/11/2021 EXAMINATION: XR HUMERUS RIGHT (GENERIC) CLINICAL HISTORY: R HUMERUS FX S/P ORIF DOI 09/18/21 DOS 09/28/21, assesshealing and alignment (as entered by ordering provider in the order requisition) TECHNIQUE: AP and lateral views of the right humerus. COMPARISON: Right humerus radiographs 09/28/2021 and 09/27/2021. FINDINGS: Status post ORIF of healing humeral shaft fracture. Fracture lucencyremains visible, but there is some early callus formation at the fracture siteresulting in blurring of the fracture lucency on the lateral view. There is softtissue swelling of the upper arm. Hardware is intact with no screw backout. Prominent osteophyte of the ulnar trochlear compartment of the elbow. IMPRESSION Healing humeral fracture status post ORIF. No hardware complication. Thank you for letting us participate in the care of this patient. If youare a health care provider and have any questions regarding this report,please contact the number below. For patients who have questions please contactthe health pharmacist critical care that requested your imaging first. Electronically signed by: Wanda Mcnamara MD, [facility]([phone]), at 10/11/2021 1:52 PM Geronimo Giron MD IMG DX ORDERABLES documented in this encounter Visit Diagnoses Diagnosis Open fracture of proximal end of right humerus, unspecified fracture morphology, initial encounter documented in this encounter Care Teams Wound Nurse Relationship Specialty Start Date End Date Jossie Patton APRN [address] [place] [address] PCP - General Family Medicine 04/19/20 documented as of this encounter
--- OUTSIDE RECORDS SUMMARY | 2024-02-14 15:17 | XMS_ITS | Encounter Summary ---
Author Organization [facility] [place] [address] Care Team Providers Care Employee Representative Name Role Phone Belle Pattonily Gabrielle GARCIA Primary Care Provider [phone] Reason for Visit * Auth/Cert Specialty Diagnoses / Procedures Referred By Savannah ashton Referred To Contact Diagnoses Humerus fracture fx humerus ORIF Procedures IPI Madelaine Jenkins MD [facility] [place] [address] [facility] Referral ID Status Reason Start Date Expiration Date Visits Re quested Visits Authorized [id number] 1 1 Encounter Details Date Type Department Care Team (Latest Contact Info) Description 09/26/2021 4:39 PM EDT - 09/29/2021 4:21 PM EDT Hospital Encounter [address] [place] [address] Madelaine Jenkins MD [facility] [place] [address] Discharge Disposition: Home Social History Tobacco Use Types Packs/Day Years Used Date Smoking Tobacco: Every Day Cigarettes Smokeless Tobacco: Never Comments:marijuana occasiona lly Sex and Gender Information Value Date Recorded Sex Assigned at Not on file Gender Identity Not on file Sexual Orientation Not on file documented as of this encounter Last Filed Vital Signs Vital Sign Reading Time Taken Comments Blood Pressure 125/75 09/29/2021 11:30 AM EDT Pulse 86 09/28/2021 10:05 PM EDT Temperature 37.2 ??C (99 ??F) 09/29/2021 11:30 AM EDT Respiratory Rate 18 09/29/2021 11:30 AM EDT Oxygen Saturation 95% 09/29/2021 11:30 AM EDT Inhaled Oxygen Concentration - - Weight - - Height - - Body Mass Index - - documented in this encounter Discharge Summaries * Addy Butcher PA - 09/29/2021 2:20 PM EDT Discharge Summary Patient Name: Guzman Jean Patient Age: 46 y.o. Language: Turkish Race: White Ethnicity: Not nor Admit date: 09/26/2021 Discharge date and time: 09/29/2021 Attending Physician: Madelaine Jenkins MD Discharge Physician: Madelaine Jenkins MD Follow-up Recommendations for Providers: See discharge instructions for additional details. Future Appointments Date Time Provider Department Center 10/18/2021 7:45 AM [facility] DX ROOM 1 Xray [facility] Rad 10/18/2021 8:30 AM Geronimo Giron MD [facility] ORTH 3A [facility] Inpatient Provider Contact Information: Madelaine Jenkins MD Orthopedics: [phone] After hours and weekends, call [facility] Cardiovascular Radiologic Technologist, , and have the Orthopedic resident paged. Discharge Diagnoses (Hospital Problems) and Secondary Diagnoses (Chronic Problems): Active Hospital Problems Diagnosis ??? s/p ORIF R diaphyseal humerus fracture 09/28/21 (Dr Giron) ??? Adult BMI 40.0-44.9 kg/sq m ??? Type 2 diabetes mellitus Resolved Hospital Problems No resolved problems to display. Active Non-Hospital Problems Diagnosis ? ? Vitamin D deficiency (25vitD 14.5 on 05/16/13-> 29 on 07/07/19) ??? 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 Vitamin B12 deficiency (used to take B12 shots previously) ??? Hypertension ??? History of tobacco use ??? Fatty liver determined by biopsy 11/25/2009; mildly elevated LFTs ??? Chronic nonintractable headache ??? Tobacco use in , childbirth, or the puerperium, antepartum ??? Episodic mood disorder ??? Depression complicating , antepartum ??? Insulin overdose with S/I in 2013, insulin was then given under supervision ??? Suicidal ideation ??? Hyperlipidemia ??? Low back pain ??? Polycystic ovaries with irregular periods and hirsutism s/p bilateral tubal ligation Operations/Major Procedures: 09/28/2021 ORIF HUMERAL SHAFT FX. (WRVU 12.12) (Right) MODIFIER: 3.5MM LCP PERIARTICULAR PROXIMAL HUMERUS PLATE SET SYNTHES (Right) MODIFIER LOCKING SMALL FRAGMENT SYNTHES (N/A) History of Presentation: Guzman Jean is a 46 y.o. female with hx of poorly controlled diabetes who suffered a right humerus fracture after falling down a flight of stairs last week on 09/19. Patient was initially trialednon-operatively with a mccauley brace, however has developed skin breakdown, skin numbness in areaof brace, and poor tolerance from pain standpoint. The patient denies CP/SOB/N/V/F/C. Hospital Course: Guzman Jean was admitted from the Emergency Department for evaluation and treatment of the above identified injuries. Endocrinology was consulted for assistance with insulin management. Appreciate their recs. On HD#3 she was taken to surgery for the above procedure. Guzman Jean tolerated the procedure and did well post-operatively. On HD#4 the patient was started on oral pain medications. The patient was seen by PT for mobility/exercises - non-weight bearing of right upper extremity. The patient was voiding spontaneously. She did not have a bowel movement prior to discharge but was passing flatus and was taking po without difficulty. On POD#1 the patient was medically clear, and PT determined that she was safe for dischargeto home. Endocrinology Consult: 09/28/2021 ASSESSMENT Patient is a??46 y.o.??years old female??with PMH significant for poorly controlled T2DM, BMI 41, HTN, HLD,??who was admitted on??09/26/2021?for ??a right humerus fracture after falling down a flight of stairs last week on 09/19.??Patient was initially trialed non-operatively with a mccauley brace, however has developed skin breakdown, skin numbness in area of brace, and poor tolerance from pain standpoint. ??She is scheduled for an operative fixation of the right humerus. ??Currently has variability of blood glucose levels while hospitalized requiring adjustment of insulin regimen and DM medications. A1C updated upon admission and 11.9%. ?? Ryan removed her pump this morning because she ran out of insulin. I estimate that she received about 16 units since midnight and her NPO status. She received 25 units of Lantus at 2:30 yesterday and woke up with a blood sugar of 91. She did spike after eating pizza and fruit and logging for 25 carbs. Her carb ratio is set at 1:5 based on her significant insulin requirements though she admits to not always bolusing for food or remembering to administer her Tresiba so her true insulin needs area bit unclear. Per her report, review of Sure scripts and notes Ryan requires about 100 units of basal insulin daily, receiving 48 units from her pump and 50 units through an additional injection ofTresiba daily. Despite being NPO she continues to have a basal insulin requirement and conservatively will continue with the 25 units of Lantus daily. She will benefit from continued diabetic education. New Dexcom CGM and transmitter provided for her to use following surgery. ?? PLAN 1. Lantus: 25 units 1400 today 2. Lispro for correction q 4 hours using ISF 20 for BG > 140 3. Return to pump after surgery when back to eating 4. Diet: NPO ?? Isamar Hoff APRN [facility] Endocrinology Diabetes Management Vital Signs at Discharge: Weight: Wt Readings from Last 1 Encounters: 09/26/21 95.3 kg (210 lb) Height: Ht Readings from Last 1 Encounters: 09/26/21 152.4 cm (5') HC: HC Readings from Last 1 Encounters: No data found for HC BMI: There is no height or weight on file to calculate BMI. Last value Range last 24 hrs Temperature Temp: 37.2 ??C (99 ??F) Temp: [36.3 ??C (97.3 ??F)-37.2 ??C (99 ??F)] Heart Rate Heart Rate: 86 Heart Rate: [78-87] Blood Pressure BP: 125/75 BP: (102-147)/(57-94) Respiratory Rate Resp: 18 Resp: [11-22] SpO2 SpO2: 95 % SpO2: [90 %-100 %] Art BP BP (Arterial Line): -- Functional and Cognitive Status: Patient mobilizing with right arm in splint and swing, cognitivelyintact at baseline mental status at time of discharge. Important Lab Data: Last 3 wbc, hgb, hct plt Recent Labs 09/29/21 0337 09/28/21 0334 09/27/21 0323 WBC 13.6* 11.0* 11.1* HGB 12.5 12.8 13.4 HCT 36.4 37.3 39.5 PLATELET 268 260 275 Last 3 Lytes Recent Labs 09/29/21 0337 09/28/21 0334 09/27/21 0323 NA 137 137 139 K 4.6 3.3* 3.8 CL 101 105 107 CO2 23 20* 20* BUN 7* 10 10 CREATININE 0.56* 0.51* 0.50* Last 3 HgbA1C Recent Labs 09/27/21 1227 HA1C 11.9* Last CRP, SEDRATENo results for input(s): CRP, SEDRATE in the last 7068 hours. Studies: XR Humerus Right (Generic) Result Date: 09/27/2021 EXAMINATION: XR HUMERUS RIGHT (GENERIC) CLINICAL HISTORY: fracture evaluation (as entered by ordering provider in the order requisition) TECHNIQUE: 2 lateral views of the right humerus with the shoulder in internal rotation and external rotation. COMPARISON: None FINDINGS/IMPRESSION: There is apex-posterior angulated fracture of the mid humeral shaft. Strandingof the subcutaneous fat of the upper arm is noted. Small marginal osteophytes of the acromioclavicular joint is consistent with mild acromioclavicular osteoarthropathy. Thank you for letting us participate in the care of this patient. If you are a health care provider and have any questions regarding this report, please contact the number below. For patients who have questions please contact the health child care sitter that requested your imaging first. Pending Studies and Lab Data at Discharge: * No orders in the log * Transfusions: No Discharge Conditions/Prognosis: Stable, awake, and alert. Mobilizing as noted above, pain controlled on oral medications. Discharge to: Home Updated Allergies/ADRs: Allergies Allergen Reactions ??? Lisinopril Immunizations Given this Hospitalization: Immunization History Administered Date(s) Administered ??? Influenza PF, Split 03/16/2010, 03/04/2012 ??? Influenza Vaccine PF, Quadrivalent 02/22/2014 ??? Influenza Vaccine, Unspecified Formulation 02/06/2011 ??? Tdap Vaccine 09/20/2011, 04/09/2014 Discharge Medications: Your Medications New Medications Dose Details enoxaparin 40 mg/0.4 mL Syrg Commonly known as: Lovenox Inject 0.4 mLs subcutaneously nightly for 27 days. 40 mg Quantity: 10.8 mL Refills: 0 oxyCODONE 5 mg Tab Commonly known as: Roxicodone Take 0.5-2 tablets by mouth every 4 hours as needed for Pain. 2.5-10 mg Quantity: 20 tablet Refills: 0 polyethylene glycoL 17 gram Pwpk Commonly known as: Miralax Take 17 g by mouth daily as needed (For constipation) for up to 30 days. 17 g Refills: 0 senna 8.6 mg Tab Commonly known as: Senna Take 1 tablet by mouth 2 times daily as needed for Constipation for up to 30 days. 1 tablet Refills: 0 Continued medications with new dosing Dose Details acetaminophen 500 mg Tab Commonly known as: Tylenol Take 2 tablets by mouth every 8 hours for 10 days. What changed: ?? medication strength ?? how much to take ?? when to take this ?? reasons to take this 1,000 mg Refills: 0 Continued medications, unchanged Dose Details Acetylcysteine 600 mg Cap TAKE 2 CAPSULES BY MOUTH TWICE A DAY NEEDED Refills: 0 albuteroL 90 mcg/actuation Hfaa INHALE 1 TO 2 PUFFS EVERY 4 TO 6 HOURS NEEDED FOR WHEEZING Refills: 0 amLODIPine 10 mg Tab Commonly known as: Norvasc Take 10 mg by mouth Daily. 10 mg Refills: 0 Blood-Glucose Meter Misc USE TO CHECK BLOOD GLUCOSE TWICE DAILY DX E11.9 Refills: 0 busPIRone 10 mg Tab Commonly known as: Buspar Take 10 mg by mouth daily. 10 mg Refills: 0 cholecalciferol (Vitamin D3) 50 mcg (2,000 unit) Cap Take 1 tablet by mouth Daily. 1 tablet Refills: 0 clonazePAM 1 mg Tab Commonly known as: KlonoPIN TAKE 1 TABLET BY MOUTH ONCE DAILY 1 HOUR PRIOR TO BED NEEDED Refills: 0 cloNIDine 0.2 mg Tab Commonly known as: Catapres Take 0.2 mg by mouth daily. 0.2 mg Refills: 0 clotrimazole 10 mg Troc Commonly known as: Mycelex HOLD 1 MADDY IN MOUTH FIVE TIMES A DAY Refills: 0 cyclobenzaprine 10 mg Tab Commonly known as: Flexeril TAKE 1 TABLET BY MOUTH THREE TIMES A DAY NEEDED Refills: 0 diclofenac 1 % Gel Commonly known as: Voltaren APPLY A SMALL AMOUNT TO SKIN THREE TIMES A DAY NEEDED FOR PAIN Refills: 0 gabapentin 400 mg Cap Commonly known as: Neurontin Take 800 mg by mouth 3 times daily. 800 mg Refills: 0 glimepiride 4 mg Tab Commonly known as: AMARYL TAKE 1 TABLET BY MOUTH 2 TIMES DAILY. TO BE ABLE TO REDUCE INSULIN TO HALF DOSE OR TAPER DOWN INSTRUCTED 4 mg Quantity: 180 tablet Refills: 3 Glucagon Emergency Kit (human) 1 mg Solr Inject 1 mg into the muscle as needed. Generic drug: Glucagon 1 mg Refills: 0 humaLOG 100 unit/mL Soln INJECT 120-150 UNITS SUBCUTANEOUSLY DAILY IN INSULIN PUMP Generic drug: insulin lispro Quantity: 150 mL Refills: 3 insulin needles (disposable) 31 gauge x 3/16 Ndle 1 each by [facility].(Non-Drug; Combo Route) route daily. 1 each Quantity: 90 each Refills: 3 Insulin Tresiba FlexTouch U-200 200 unit/mL (3 mL) Inpn INJECT 30-60 UNITS SUBCUTANEOUSLY NIGHTLY. INDICATIONS: TYPE 2 DIABETES MELLITUS Generic drug: insulin degludec 30-60 Units Quantity: 18 mL Refills: 3 irbesartan 150 mg Tab Commonly known as: AVAPRO Take 150 mg by mouth Daily. 150 mg Refills: 0 Keto-Diastix Strp See Admin Instructions. Generic drug: Urine Glucose-Ketones Test Refills: 0 labetaloL 200 mg Tab Commonly known as: Normodyne Take 200 mg by mouth Twice daily. 200 mg Refills: 0 LORazepam 1 mg Tab Commonly known as: Ativan Take 1 mg by mouth daily. 1 mg Refills: 0 metFORMIN 1,000 mg Tab Commonly known as: GLUCOPHAGE Take 2,000 mg by mouth daily. 2,000 mg Refills: 0 naloxone 4 mg/actuation [place] Commonly known as: Narcan SPRAY 1 SPRAY INTO BOTH NOSTRILS NEEDED FOR SUSPECTED OVERDOSE Refills: 0 nystatin 100,000 unit/mL Susp Commonly known as: Mycostatin TAKE 5 ML BY MOUTH 4 TIMES A DAY-- SWISH AND SWALLOW Refills: 0 ondansetron 4 mg Tab Commonly known as: Zofran Take 4 mg by mouth every 6 hours as needed. 4 mg Refills: 0 ondansetron ODT 4 mg Tbdl Commonly known as: Zofran-ODT Refills: 0 OneTouch Verio test strips Strp USE TO CHECK BLOOD GLUCOSE TWICE DAILY DX E11.9 Generic drug: blood sugar diagnostic strips Refills: 0 oseltamivir 75 mg Cap Commonly known as: Tamiflu TAKE 1 CAPSULE BY MOUTH TWICE A DAY FOR FIVE DAYS Refills: 0 prazosin 1 mg Cap Commonly known as: Minipress TAKE 1 CAPSULES BY MOUTH FOR 2 DAYS THEN INCREASE TO 2 CAPSULES AT NIGHT (D/C CLONIDINE MONITOR FORBLOOD PRESSURE DAILY) Refills: 0 QUEtiapine 200 mg Tab Commonly known as: SEROquel Take 400 mg by mouth daily. 400 mg Refills: 0 ranitidine 150 mg Tab Commonly known as: ZANTAC Take 300 mg by mouth Twice daily. 300 mg Refills: 0 rosuvastatin 20 mg Tab Commonly known as: Crestor Refills: 0 Trulicity 1.5 mg/0.5 mL Pnij Inject 0.5 mLs subcutaneously once a week. Generic drug: dulaglutide 1.5 mg Quantity: 6 mL Refills: 3 Vraylar 6 mg Cap Take 1 capsule by mouth daily. Generic drug: cariprazine 1 capsule Refills: 0 zolpidem 12.5 mg Tbmp Commonly known as: AMBIEN CR Take 12.5 mg by mouth nightly as needed. 12.5 mg Refills: 0 STOPPED Medications HYDROcodone-acetaminophen 5-325 mg Tab Commonly known as: [place] ibuprofen 400 mg Tab Commonly known as: Motrin Smoking Status at Discharge: Social History Tobacco Use Smoking Status Current Every Day Smoker ??? Packs/day: 1.00 ??? Types: Cigarettes Smokeless Tobacco Never Used Tobacco Comment marijuana occasionally Instructions for Rehab Providers or PCP: See below. Instructions Given to Patient at Discharge: Patient Instructions Orthopedic Surgery Discharge Instructions Activity level: 1. You are Non-weight bearing on your Right arm. 2. Remember to use a sling at all times for protection and balance. 3. Remember to keep your Right arm elevated as much as possible to decrease swelling and control pain. Anticoagulation: Lovenox - You have been discharged on Lovenox injections (40mg daily) for 30 days or until your mobility improves and surgeon instructs you to stop. Diet: You may return to your usual diet, but increase your fluids and fiber intake to keep you hydrated and your bowels soft. To help with wound healing increase your intake of high protein foods andfluids. Driving: None until you are cleared to do so by your Orthopedic surgeon. You should not drive whileyou are on narcotic pain meds as they can affect your judgment and reaction time. Call your surgeonwith any questions/concerns. Medications: 1. The pain medication you are on can cause constipation so increase your intake of fluids and fiber while you are on them. The stool softener, Pericolace, that has been prescribed can also be taken to facilitate a bowel movement. You can also take an egyc-bnq-jylekge medication, Miralax if needed to combat constipation. 2. If you need a renewal on your narcotic pain medication, you need to give the Orthopedic clinic enough time to process your request. This can take up to three days, so plan accordingly. 3. Continue acetaminophen (Tylenol) 1,000mg every 8 hours as needed for pain. This can be effectivein controlling pain along with your other medications. After that you can take Tylenol as needed per package insert. Do not take more than 3,000mg of acetaminophen in a 24 hour period. 4. You have been discharged on a short acting narcotic. You will be on this medication for a limited period of time only. Taper off this medication as your pain improves. 5. Do not take any NSAIDs including ibuprofen, Motrin or Aleve. Shower/Bath: You may shower BUT use a waterproof dressing (plastic bag taped at the top) to cover the incision/dressing. DO NOT submerge the wound. Remember you MUST to observe your weight bearing status and activity limitations when you shower so use a chair or bench for balance if you are unable to safely stand. A sponge bath may be easier. Wound Care: 1. Suture/staple removal 2 weeks post-op (to be removed at your follow up appointment 10/18/21). 2. Keep dressing in place until your follow-up appointment. Cast/Splint Care: Keep the cast or splint in place until your follow-up with Orthopedics. Keep the cast/splint clean and dry. It is easiest to sponge bathe, but if you must bathe, protect the cast/splint with a plastic bag high above the cast or splint and secure with adhesive tape. Do not submergethe cast in water at anytime. If the cast accidently gets wet, call the office immediately to have it replaced. A wet cast can cause severe skin and wound problems. Call your doctor ([phone]) if you develop: 1. Fever greater than 100.5 2. Severe nausea or vomiting 3. Increasing pain that is not controlled by pain medications 4. Increasing redness, swelling, or drainage from incisions 5. Change in sensation Misc: 1. If you are a smoker, quitting is very important to help your fracture heal. You should contact your PCP to assist you with setting up a cessation program. 2. Remember that ICE and elevation are very important to help decrease swelling and control pain. You should use the ICE for 20-30 minutes at a time. 3. To help with bone healing and your overall bone health, your intake of calcium should be at least 1200mg a day and your vitamin D intake should be at least 800 IU per day. FOLLOW-UP APPOINTMENTS: 1. You will have follow-up appointments at [facility] as indicated in Future Appointment and Orders. You will have an xray prior to those appointments so please come to Radiology, desk 3T, 1 hour BEFORE your appointment for those x-rays. 2. If you are being discharged over the weekend or at night and do not have a scheduled appointmentwith Orthopedics, you should be notified about your appointment within the next 1-2 days. Please call if you do not hear about an appointment within that timeframe, as your follow-up is important to us. Future Appointments Date Time Provider Department Center 10/18/2021 7:45 AM [facility] DX ROOM 1 Xray [facility] 10/18/2021 8:30 AM Geronimo Giron MD [facility] ORTH [address] [place] [address] If you have questions or concerns: Saturday through Saturday, 8 AM - 5 PM, please call Madelaine Jenkins MD, MD's office at . If it is after 5 PM or on the weekend, please call and ask to speak with the Orthopedic resident on-call. General Instructions None Future Appointments and Orders Future Appointments and Orders Future Appointments Provider Department Dept Phone 10/18/2021 7:45 AM [facility] DX ROOM 1 XRay at [facility] Arrive at: Laundry Attendant Area 3T [phone] Please go to Laundry Attendant Area 3T ([facility]). 10/18/2021 8:30 AM Geronimo Giron MD Orthopaedics at [facility] Arrive at: Laundry Attendant Area 3A [phone] Primary Care Provider: Jossie Patton APRN [phone] Discharge References/Attachments None documented in this encounter Discharge Instructions * Patient Instructions* Addy Butcher PA - 09/27/2021 9:12 AM EDT Orthopedic Surgery Discharge Instructions Activity level: 1. You are Non-weight bearing on your Right arm. 2. Remember to use a sling at all times for protection and balance. 3. Remember to keep your Right arm elevated as much as possible to decrease swelling and control pain. Anticoagulation: Lovenox - You have been discharged on Lovenox injections (40mg daily) for 30 days or until your mobility improves and surgeon instructs you to stop. Diet: You may return to your usual diet, but increase your fluids and fiber intake to keep you hydrated and your bowels soft. To help with wound healing increase your intake of high protein foods andfluids. Driving: None until you are cleared to do so by your Orthopedic surgeon. You should not drive whileyou are on narcotic pain meds as they can affect your judgment and reaction time. Call your surgeonwith any questions/concerns. Medications: 1. The pain medication you are on can cause constipation so increase your intake of fluids and fiber while you are on them. The stool softener, Pericolace, that has been prescribed can also be taken to facilitate a bowel movement. You can also take an iwwh-xcf-uehxnqd medication, Miralax if needed to combat constipation. 2. If you need a renewal on your narcotic pain medication, you need to give the Orthopedic clinic enough time to process your request. This can take up to three days, so plan accordingly. 3. Continue acetaminophen (Tylenol) 1,000mg every 8 hours as needed for pain. This can be effectivein controlling pain along with your other medications. After that you can take Tylenol as needed per package insert. Do not take more than 3,000mg of acetaminophen in a 24 hour period. 4. You have been discharged on a short acting narcotic. You will be on this medication for a limited period of time only. Taper off this medication as your pain improves. 5. Do not take any NSAIDs including ibuprofen, Motrin or Aleve. Shower/Bath: You may shower BUT use a waterproof dressing (plastic bag taped at the top) to cover the incision/dressing. DO NOT submerge the wound. Remember you MUST to observe your weight bearing status and activity limitations when you shower so use a chair or bench for balance if you are unable to safely stand. A sponge bath may be easier. Wound Care: 1. Suture/staple removal 2 weeks post-op (to be removed at your follow up appointment 10/18/21). 2. Keep dressing in place until your follow-up appointment. Cast/Splint Care: Keep the cast or splint in place until your follow-up with Orthopedics. Keep the cast/splint clean and dry. It is easiest to sponge bathe, but if you must bathe, protect the cast/splint with a plastic bag high above the cast or splint and secure with adhesive tape. Do not submergethe cast in water at anytime. If the cast accidently gets wet, call the office immediately to have it replaced. A wet cast can cause severe skin and wound problems. Call your doctor ([phone]) if you develop: Fever greater than 100.5 Severe nausea or vomiting Increasing pain that is not controlled by pain medications Increasing redness, swelling, or drainage from incisions Change in sensation Misc: 1. If you are a smoker, quitting is very important to help your fracture heal. You should contact your PCP to assist you with setting up a cessation program. 2. Remember that ICE and elevation are very important to help decrease swelling and control pain. You should use the ICE for 20-30 minutes at a time. 3. To help with bone healing and your overall bone health, your intake of calcium should be at least 1200mg a day and your vitamin D intake should be at least 800 IU per day. FOLLOW-UP APPOINTMENTS: 1. You will have follow-up appointments at [facility] as indicated in Future Appointment and Orders. You will have an xray prior to those appointments so please come to Radiology, desk , 1 hour BEFORE your appointment for those x-rays. 2. If you are being discharged over the weekend or at night and do not have a scheduled appointmentwith Orthopedics, you should be notified about your appointment within the next 1-2 days. Please call if you do not hear about an appointment within that timeframe, as your follow-up is important to us. Future Appointments Date Time Provider Department Center 10/18/2021 7:45 AM [facility] DX ROOM 1 Xray [facility] Rad 10/18/2021 8:30 AM Geronimo Giron MD [facility] ORTH 3A [facility] If you have questions or concerns: Saturday through Saturday, 8 AM - 5 PM, please call Madelaine Jenkins MD, 's office at . If it is after 5 PM or on the weekend, please call and ask to speak with the Orthopedic resident on-call. documented in this encounter Medications at Time of Discharge Medication Sig Dispensed Refills Start Date End Date Acetylcysteine 600 mg Capsule TAKE 2 CAPSULES BY MOUTH TWICE A DAY NEEDED 07/07/2021 clotrimazole (Mycelex) 10 mg Maddy HOLD 1 MADDY IN MOUTH FIVE TIMES A DAY 05/11/2021 nystatin (Mycostatin) 100,000 unit/mL Suspension TAKE 5 ML BY MOUTH 4 TIMES A DAY-- SWISH AND SWALLOW 05/15/2021 ondansetron (Zofran) 4 mg Tablet Take 4 mg by mouth every 6 hours as needed. 06/27/2021 naloxone (Narcan) 4 mg/actuation [place], Non-Aerosol SPRAY 1 SPRAY INTO BOTH NOSTRILS [...] for 27 days. 10.8 mL 09/29/2021 10/26/2021 acetaminophen (Tylenol) 500 mg Tablet Take 2 tablets by mouth every 8 hours for 10 days. 0 09/29/2021 10/09/2021 senna (Senna) 8.6 mg Tablet Take 1 tablet by mouth 2 times daily as needed for Constipation for up to 30 days. 09/29/2021 10/29/2021 oxyCODONE (Roxicodone) 5 mg Tablet Take 0.5-2 tablets by mouth every 4 hours as needed for Pain. 20 tablet 09/29/2021 10/02/2021 polyethylene glycoL (Miralax) 17 gram Powder in Packet Take 17 g by mouth daily as needed (For constipation) for up to 30 days. 0 09/29/2021 10/11/2021 oseltamivir (Tamiflu) 75 mg Capsule TAKE 1 CAPSULE BY MOUTH TWICE A DAY FOR FIVE DAYS 07/26/2021 02/18/2023 zolpidem (AMBIEN CR) 12.5 mg Tablet, Multiphasic Release Take 12.5 mg by mouth nightly as needed. 05/05/2021 10/11/2021 Insulin Tresiba FlexTouch U-200 200 unit/mL (3 mL) Insulin PenIndications:type 2 diabetes mellitus INJECT 30-60 UNITS SUBCUTANEOUSLY NIGHTLY. INDICATIONS: TYPE 2 DIABETES MELLITUS 18 mL 3 09/14/2021 03/23/2022 clonazePAM (KlonoPIN) 1 mg Tablet TAKE 1 TABLET BY MOUTH ONCE DAILY 1 HOUR PRIOR TO BED NEEDED 08/25/2021 ondansetron ODT (Zofran-ODT) 4 mg Tablet, Rapid [...] 10 mg by mouth daily. 05/23/2021 09/06/2023 cloNIDine (Catapres) 0.2 mg Tablet Take 0.2 mg by mouth daily. 06/01/2021 10/11/2021 LORazepam (Ativan) 1 mg Tablet Take 1 mg by mouth daily. 05/23/2021 10/11/2021 QUEtiapine (SEROquel) 200 mg Tablet Take 200 mg by mouth daily. 05/25/2021 03/16/2022 insulin needles, disposable, 31 gauge x 3/16 Needle 1 each by [facility]Non-Drug; Combo Route) route daily. 90 each 3 01/31/2021 10/29/2022 ranitidine (ZANTAC) 150 mg Tablet Take 300 mg by mouth Twice daily. 02/18/2023 metFORMIN (GLUCOPHAGE) 1,000 mg Tablet Take 2,000 mg by mouth daily. 05/16/2014 03/23/2022 documented as of this encounter Progress Notes * Wanda Wolfe RN - 09/29/2021 4:20 PM EDT Patient discharge to home. IV removed, site benign. My assessment remains unchanged from my previous assessment. RN Discussed pain management with patient, pain tolerable. Patient medicated prior to discharge. Patient has all belongings and supplies needed. Patient received After Visit Summary and p rescriptions. These were reviewed, patient verbalizes understanding of AVS. All questions answered.Patient encouraged to call with questions or concerns. Patient discharged to home with family. * Shazia Graham, PT - 09/29/2021 2:07 PM EDT Physical Therapy Evaluation Patient profile: Guzman Jean is a 46 y.o. female admitted on 09/26/[address] Madelaine Jenkins MD with previous right humerus fx. She underwent ORIF on 09/28 and referred to PT/OT. Patient with the following active problems: No past medical history on file. Past Surgical History: Procedure Laterality Date ??? PRO OPEN FIXATN MID HUMERUS FRACTURE Right 09/28/2021 ORIF HUMERAL SHAFT FX. 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 Home set-up: one level living Bathroom Set-up: on first floor, tub shower. Stairs: none Baseline Mobility: ind without a device. Equipment at home: none Fall history: down the stairs. Precautions/Special Considerations: fall risk; NWB right arm. Sling right arm for comfort Mobility and Positioning Recommendations: ?? Pt. should utilize supervision for ambulation and transfers with nursing. ?? Please encourage up to chair for meal times as able. ?? Pt encouraged to ambulate with staff, getting into the bathroom & walking in [place] daily as able. Subjective: ???I'll be fine. I have help. No he does the driving.?? Objective: Pt seen for evaluation today. Seen with OT. Pain: moderate pain at fx site. Cardiopulmonary: stable on room air Mental Status: alert, oriented to person, place, and time and slightly impulsive Skin: right arm covered. Musculoskeletal: ROM: limited right elbow, wrist and hand due to swelling. Strength: wfl except right arm. Sensation: wnl both feet. Bed Mobility: Supine to Sit: ind Sit to Supine: ind Transfers: Sit to Stand: ind without a device Stand to Sit: ind without a device Gait: Distance: 150' Device used: none Level of assist: Supervision and cues for direction. Gait mechanics: slow, but wnl Stairs: nt, pt stated that she did not feel that she needed to practice stairs and only has a few to enter the home Balance: Pt has seen outpt PT for high level balance/vestibular ex's in the past. Sitting: wnl Standing / Gait: Good without perturbations, no device on level ground. Education/Exercise: reviewed safety at home. Patient status, treatment, and mobility recommendations have been discussed with nursing. Assessment: Pt was seen today for physical therapy evaluation. Pt is mobilizing slowly, but independently. She is limited by dyspnea and chest pressure brought on by exertion. She understands why and is able to pace herself with activities. She also understands the importance of continuing to mobilize at home as tolerated. She has met all inpt PT goals. She did not desaturate below 88% with activity during the session. Plan: Therapy Frequency (PT): once Patient/family understand and agree with plan. Discharge Recommendations: Anticipated Discharge Disposition (PT): home when medically ready for hospital discharge. Consult Recommendations: none Equipment needs: Anticipated Equipment Needs at Discharge (PT): None Thank you for this consult. SHAZIA GRAHAM, PT Pager: [phone] Physical Therapy Inpatient Rehabilitation Department Time IN / OUT: [phone] Total Minutes, Physical Therapy: 2016 PT Evaluation Code Rationale: ?? Diagnosis & Pertinent Co-Morbidities, personal factors, and present illness affecting Plan of Care: (see above); Additional personal factors or co- morbidities that impact plan: ?? Total # of Factors: 0 1-2 3+ x ?? Examination of body system impairments, functional limitations and behaviors, and/or participation restrictions. Addressing 1-2 elements Addressing 3 + elements x Addressing 4 + elements ?? Clinical presentation: See assessment above. Stable/Uncomplicated Evolving/Fluctuating Symptoms Unstable/Unpredictable x ?? Clinical decision making of low complexity based on pt's functional performance as outlined in this evaluation. * Isamar Hoff, PACKAGE DYE STAND LOADER - 09/29/2021 8:45 AM EDT Images from the original note were not included. Follow Up Diabetes Consult Patient Interview Ryan will discharge home today if no issues with PT/OT. She reports that the adhesive on her pump infusion set hit the floor and can not be used. She has not had her pump on. She has been receiving corrections. Lantus order increased with elevated blood sugars this am. Home dose is Tresiba at 50 units. She reports she could use some more guidance counting carbs. Administered for 25 carbs yesterday for jordanaa that we looked up and discovered was 60 grams carbs. Agrees to diabetic education referral upon discharge. Objective Temp: [36.3 ??C (97.3 ??F)-37.2 ??C (99 ??F)] Heart Rate: [78-87] Resp: [11-22] BP: (102-147)/(57-94) SpO2: [90 %-100 %] Heart Rate from SpO2: [77 bpm-106 bpm] Current Regimen from previous note 1. Lantus: 25 units 1400 today 2. Lispro for correction q 4 hours using ISF 20 for BG > 140 3. Return to pump after surgery when back to eating 4. Diet: NPO Recent Glucose Levels Recent Labs 09/29/21 0821 09/29/21 0639 09/29/21 0527 09/28/21 1905 09/28/21 1544 09/28/21 1121 09/28/21 0542 09/27/21 2347 09/27/21 1958 09/27/21 1439 09/27/21 1129 09/27/21 0730 POCGLU 263* 243* 243* 146 183 174 91 230* 260* 125 147 114 ASSESSMENT Patient is a??46 y.o.??years old female??with PMH significant for poorly controlled T2DM, BMI 41, HTN, HLD,??who was admitted on??09/26/2021?for ??a right humerus fracture after falling down a flight of stairs last week on 09/19.??Patient was initially trialed non-operatively with a mccauley brace, however has developed skin breakdown, skin numbness in area of brace, and poor tolerance from pain standpoint. ??Yesterday had operative fixation of the right humerus. ??Currently has variability of blood glucose levels while hospitalized requiring adjustment of insulin regimen and DM medications. A1C updated upon admission and 11.9%. Elevated fasting BGs this am. One time dose of 10 units of lantus added to 25 administered this monring. She was provided with new [employer] infusion set and I watched as she managed to place set on her abdomen and load tubing to restart her pump. She should have no issues continuing this at home. She was provided with a new Dexcom CGM with a transmitter for discharge. Agrees to referral to wellness educator to work on improving carb counting skills upon discharge PLAN 1. Lantus: 35 units today 2. Lispro for correction q 4 hours using ISF 20 for BG > 140 3. Diet: carb controlled 60/60/75 4. Patient will discharge to home diabetes regimen with referral placed for diabetic education to work on carb counting skills. Isamar Hoff APRN [facility] Endocrinology Diabetes Management Pager [phone] 20 minutes of this 35 minute visit was spent with the patient in counseling on diabetes and treatment plan, reviewing all glucose and insulin data as well as relevant laboratory results with the patient, and coordination of care on the inpatient unit including nursing and primary team. * Marlo Mercado MD - 09/29/2021 6:24 AM EDT ORTHOPAEDIC SURGERY INPATIENT PROGRESS NOTE Patient Name: Guzman Jean Age: 46 y.o. Surgery/Issue: R humerus ORIF Attending: Dr. Giron Date of surgery: 09/28/2021 SUBJECTIVE / INTERVAL HISTORY: ADELSO BRODERICK (was on 2L NC, now on RA) Pain well controlled this morning Denies numbness or tingling Desires to have bed alarm off Patient denies chest pain, shortness of breath, nausea, vomiting FOCUSED REVIEW OF SYSTEMS: as above. Active Hospital Problems Diagnosis ??? s/p ORIF R diaphyseal humerus fracture (Giron/Tiffanie) 09/28 ??? Adult BMI 40.0-44.9 kg/sq m ??? Type 2 diabetes mellitus Resolved Hospital Problems No resolved problems to display. Active Non-Hospital Problems Diagnosis ? ? Vitamin D deficiency (25vitD 14.5 on 05/16/13-> 29 on 07/07/19) ??? 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 Vitamin B12 deficiency (used to take B12 shots previously) ??? Hypertension ??? History of tobacco use ??? Fatty liver determined by biopsy 11/25/2009; mildly elevated LFTs ??? Chronic nonintractable headache ??? Tobacco use in , childbirth, or the puerperium, antepartum ??? Episodic mood disorder ??? Depression complicating , antepartum ??? Insulin overdose with S/I in 2013, insulin was then given under supervision ??? Suicidal ideation ??? Hyperlipidemia ??? Low back pain ??? Polycystic ovaries with irregular periods and hirsutism s/p bilateral tubal ligation MEDICATIONS: ??? POCT Fingerstick Glucose AND insulin lispro (HumaLOG;Admelog) (100 unit/mL) subcutaneous injection vial 1-6 Units ??? insulin glargine-ygfn (Semglee) (100 unit/mL) subcutaneous injection vial 25 Units ??? busPIRone (Buspar) tablet 10 mg ??? vancomycin (Vancocin) injection ??? INSULIN PUMP (PATIENT OWN) ??? QUEtiapine (SEROquel) tablet 400 mg ??? ipratropium-albuteroL (Duoneb) 0.5 mg-3 mg(2.5 mg base)/3 mL nebulizer solution 3 mL ??? amLODIPine (Norvasc) tablet 10 mg ??? clonazePAM (KlonoPIN) tablet 1 mg ??? cloNIDine (Catapres) tablet 0.2 mg ??? cyclobenzaprine (Flexeril) tablet 5 mg ??? gabapentin (Neurontin) capsule 800 mg ??? labetaloL (Normodyne) tablet 200 mg ??? ondansetron ODT (Zofran-ODT) disintegrating tablet 4 mg ??? famotidine (Pepcid) tablet 20 mg ??? rosuvastatin (Crestor) tablet 20 mg ??? oxyCODONE (Roxicodone) tablet 5-10 mg OR oxyCODONE (Roxicodone) tablet 10-15 mg ??? acetaminophen (Tylenol) tablet 1,000 mg ??? nicotine (Nicoderm CQ) 14 mg/24 hr patch 14 mg AND nicotine (NICODERM CQ) 14 mg/24 hr patchPatch Verification AND nicotine (NICODERM CQ) 14 mg/24 hr patch Patch Removal ??? sodium chloride 0.9 % (flush) (BD PosiFlush Normal Saline 0.9) flush 5 mL ??? sodium chloride 0.9 % (flush) (BD PosiFlush Normal Saline 0.9) flush 5-20 mL ??? lidocaine (Xylocaine) 1% (10 mg/mL) injection 3 mg ??? enoxaparin (Lovenox) (40 mg/0.4 mL) subcutaneous injection 40 mg ??? docusate sodium (Colace) capsule 100 mg ??? senna-docusate (Pericolace) 8.6-50 mg per tablet 2 tablet ??? melatonin tablet 3 mg OBJECTIVE: Temp: [36.3 ??C (97.3 ??F)-36.7 ??C (98.1 ??F)] Heart Rate: [78-87] Resp: [11-22] BP: (102-147)/(57-94) Intake/Output Summary (Last 24 hours) at 09/29/2021627 Last data filed at 09/28/20212002 Gross per 24 hour Intake 800 ml Output 20 ml Net 780 ml There is no height or weight on file to calculate BMI. PE: General: awake/alert, responds to questions CV: RRR assessed peripherally Resp: Breathing comfortably on RA RUE: Soft dressing c/d/i Sensation intact to light touch in ax/r/m/u distributions Motor intact to wrist flexion/extension, digit flexion/extension, able to extend and abduct thumb, strong utilization review rn (m/u/r/AIN/PIN intact) Brisk capillary refill distally, fingers warm/well-perfused, radial pulse 2+ Last 3 wbc, hgb, hct plt Recent Labs 09/29/21 0337 09/28/21 0334 09/27/21 0323 WBC 13.6* 11.0* 11.1* HGB 12.5 12.8 13.4 HCT 36.4 37.3 39.5 PLATELET 268 260 275 Last 3 Lytes Recent Labs 09/29/21 0337 09/28/21 0334 09/27/21 0323 NA 137 137 139 K 4.6 3.3* 3.8 CL 101 105 107 CO2 23 20* 20* BUN 7* 10 10 CREATININE 0.56* 0.51* 0.50* Last Ca, Mg, Phos Recent Labs 09/29/21 0337 CALCIUM 8.9 IMAGING: XR Humerus 09/28/21: s/p ORIF of mid diaphyseal humerus fracture with improved alignment ASSESSMENT / PLAN: Guzman Jean is a 46 y.o. female 1 Day Post-Op s/p R humerus ORIF. Doing well post-operatively with neurologic exam intact, including radial nerve. Will plan for PT/OT and likely d/c home today. We discuss the need for elevation for swelling control. I sign the forms to allowbed alarm removed per patient request. Activity: NWB RUE DVT prophylaxis: Lovenox 40mg SQ/day for 30 days Closure: Sutures (to be removed at Orthopaedic follow-up appointment) Dressing: xeroform, gauze, abd, webril, ADRIAN - sling for comfort Antibiotics: Periop Sulemaef Marlo Mercado MD 09/29/2021 Future Appointments Date Time Provider Department Center 10/18/2021 7:45 AM [facility] DX ROOM 1 MH Xray [facility] Rad 10/18/2021 8:30 AM Geronimo Giron MD [facility] ORTH 3A [facility] Associated attestation - Geronimo Giron MD - 09/29/2021 9:23 AM EDT Patient personally seen and examined by me. I discussed the patient and the plan for the patient's care with the primary author and reviewed the data. I have reviewed and agree with the findings and the plan of care as outlined below. 46F POD1 s/p right humeral shaft ORIF. Doing Well. Pain improved. Plan: NWB RUE, ok for ADLs, limit lifting to <2lbs Leave dressings until follow up Sling for comfort Appreciate endocrine recs Smoking cessation counseling provided Pain control PT/OT Dispo pending PT F/u 2 weeks Geronimo Giron MD Department of Orthopaedics 09/29/21 * Megan Bansal RN - 09/29/2021 4:11 AM EDT OUTCOME EVALUATION NOTE: OUTCOME SUMMARY: No reports of SOB, chest pain, or n/v throughout shift. Pain not controlled adequately with scheduled and PRN medications, see MAR, team informed. Hand more swollen, looks to be more purple, arm hurts with passive movement of the fingers, weaker pulse. Team informed, no new orders. Pt A&Ox4 throughout shift. VSS on RA. Will continue to monitor. ~0535: Pt attempting to place dexcom pump back on. Pt was offered help to move gown but refused. Ptwas attempting to move gown with attachment piece in hand when it rubbed against the gown and made the attachment piece usable. BG at time 243, no insulne ordered till 0730, team paged. ~0610: Pt refused bed alarm, signed refusal form, so did the Pt. Form in chart. PLAN MOVING FORWARD: Pain control Mobilize D/c planning INDIVIDUALIZED FALL PREVENTION INTERVENTIONS: Patient-specific fall risk factors per assessment: [current deficits]: Hospital environment, pain, pain medications Assistance [level of assistance required for transfers and ambulation]: SBA Supervision [direct monitoring required during toileting and ADLs]: SBA Surveillance [continuous indirect monitoring]: CAMRON Chow, room near nurses station * Estefani Washington MD - 09/28/2021 10:42 PM EDT ORTHOPAEDIC SURGERY INPATIENT PROGRESS NOTE Patient Name: Guzman Jean Age: 46 y.o. Surgery/Issue: R humerus ORIF Attending: Dr. Giron Date of surgery: 09/28/2021 SUBJECTIVE / INTERVAL HISTORY: Patient denies chest pain, shortness of breath, nausea, vomiting, numbness/weakness. Pain well-controlled. Tolerating fluids. Has not yet urinated. FOCUSED REVIEW OF SYSTEMS: as above. Active Hospital Problems Diagnosis ??? Humerus fracture ??? Adult BMI 40.0-44.9 kg/sq m ??? Type 2 diabetes mellitus Resolved Hospital Problems No resolved problems to display. Active Non-Hospital Problems Diagnosis ? ? Vitamin D deficiency (25vitD 14.5 on 05/16/13-> 29 on 07/07/19) ??? 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 Vitamin B12 deficiency (used to take B12 shots previously) ??? Hypertension ??? History of tobacco use ??? Fatty liver determined by biopsy 11/25/2009; mildly elevated LFTs ??? Chronic nonintractable headache ??? Tobacco use in , childbirth, or the puerperium, antepartum ??? Episodic mood disorder ??? Depression complicating , antepartum ??? Insulin overdose with S/I in 2013, insulin was then given under supervision ??? Suicidal ideation ??? Hyperlipidemia ??? Low back pain ??? Polycystic ovaries with irregular periods and hirsutism s/p bilateral tubal ligation MEDICATIONS: ??? POCT Fingerstick Glucose AND insulin lispro (HumaLOG;Admelog) (100 unit/mL) subcutaneous injection vial 1-6 Units ??? insulin glargine-ygfn (Semglee) (100 unit/mL) subcutaneous injection vial 25 Units ??? busPIRone (Buspar) tablet 10 mg ??? vancomycin (Vancocin) injection ??? INSULIN PUMP (PATIENT OWN) ??? QUEtiapine (SEROquel) tablet 400 mg ??? ipratropium-albuteroL (Duoneb) 0.5 mg-3 mg(2.5 mg base)/3 mL nebulizer solution 3 mL ??? amLODIPine (Norvasc) tablet 10 mg ??? clonazePAM (KlonoPIN) tablet 1 mg ??? cloNIDine (Catapres) tablet 0.2 mg ??? cyclobenzaprine (Flexeril) tablet 5 mg ??? gabapentin (Neurontin) capsule 800 mg ??? labetaloL (Normodyne) tablet 200 mg ??? ondansetron ODT (Zofran-ODT) disintegrating tablet 4 mg ??? famotidine (Pepcid) tablet 20 mg ??? rosuvastatin (Crestor) tablet 20 mg ??? oxyCODONE (Roxicodone) tablet 5-10 mg OR oxyCODONE (Roxicodone) tablet 10-15 mg ??? acetaminophen (Tylenol) tablet 1,000 mg ??? nicotine (Nicoderm CQ) 14 mg/24 hr patch 14 mg AND nicotine (NICODERM CQ) 14 mg/24 hr patchPatch Verification AND nicotine (NICODERM CQ) 14 mg/24 hr patch Patch Removal ??? sodium chloride 0.9 % (flush) (BD PosiFlush Normal Saline 0.9) flush 5 mL ??? sodium chloride 0.9 % (flush) (BD PosiFlush Normal Saline 0.9) flush 5-20 mL ??? lidocaine (Xylocaine) 1% (10 mg/mL) injection 3 mg ??? enoxaparin (Lovenox) (40 mg/0.4 mL) subcutaneous injection 40 mg ??? docusate sodium (Colace) capsule 100 mg ??? senna-docusate (Pericolace) 8.6-50 mg per tablet 2 tablet ??? melatonin tablet 3 mg OBJECTIVE: Temp: [36.3 ??C (97.3 ??F)-36.7 ??C (98.1 ??F)] Heart Rate: [78-87] Resp: [11-22] BP: (99-147)/(57-94) Intake/Output Summary (Last 24 hours) at 09/28/2021 2244 Last data filed at 09/28/20212002 Gross per 24 hour Intake 800 ml Output 20 ml Net 780 ml There is no height or weight on file to calculate BMI. PE: General: awake/alert, responds to questions CV: RRR assessed peripherally Resp: Breathing comfortably on 3L NC RUE: Soft dressing c/d/i Sensation intact to light touch in ax/r/m/u distributions Motor intact to wrist flexion/extension, digit flexion/extension, able to extend and abduct thumb, strong utilization review rn Brisk capillary refill distally, fingers warm/well-perfused, radial pulse 2+ Lab Results Component Value Date NA 137 09/28/2021 K 3.3 (L) 09/28/2021 CL 105 09/28/2021 CO2 20 (L) 09/28/2021 BUN 10 09/28/2021 CREATININE 0.51 (L) 09/28/2021 GLUCOSE 111 09/28/2021 CALCIUM 8.9 09/28/2021 Lab Results Component Value Date WBC 11.0 (H) 09/28/2021 HGB 12.8 09/28/2021 HCT 37.3 09/28/2021 MCV 95.6 (H) 09/28/2021 PLATELET 260 09/28/2021 Lab Results Component Value Date INR 0.9 09/27/2021 IMAGING: XR Humerus 09/28/21: s/p ORIF of mid diaphyseal humerus fracture with improved alignment ASSESSMENT / PLAN: Guzman Jean is a 46 y.o. female Day of Surgery s/p R humerus ORIF. Doing well post-operatively. Radial nerve intact. Discharge pending evaluation by PT/OT on POD1. Activity: NWB RUE DVT prophylaxis: Lovenox 40mg SQ/day for 30 days Closure: Sutures (to be removed at Orthopaedic follow-up appointment) Dressing: xeroform, gauze, abd, webril, ADRIAN - sling for comfort Antibiotics: Periop Ancef Estefani Washington MD 09/28/2021 Future Appointments Date Time Provider Department Center 10/18/2021 7:45 AM [facility] DX ROOM 1 MH Xray [facility] Rad 10/18/2021 8:30 AM Geronimo Giron MD [facility] ORTH 3A [facility] * Megan Bansal RN - 09/28/2021 10:34 PM EDT Patient arrived to floor via bed from PACU. Patient A&O x 3, lungs clear, heart rate regular. 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 Patient has a dressing to R arm, noted to be clean dry and intact. Patient states their pain level is 7/10. Patient denies chest pain, shortness of breath, numbness or tingling. Patient oriented to room, call lindsay, IS. RN will monitor patient. Megan Bansal RN * Yancy Maria RN - 09/28/2021 8:18 PM EDT Patient arrived from OR in bed, attached to monitors and alarms set appropriately for patient. VSS.R arm in adrian wrap, unable to assess pulses. Brisk cap refill, positive sensation and movement. 2139 - Report called to PRISCILA Guzmna. Dr Estefani Dewey at bedside. 2149 - X-rays being completed. * Wanda Wolfe RN - 09/28/2021 6:15 PM EDT OUTCOME EVALUATION NOTE: OUTCOME SUMMARY: No reports of SOB, chest pain, or n/v throughout shift. Pain controlled adequately with scheduled and PRN medications, see MAR. Pt A&Ox4 throughout shift. Pt cooperative throughout shift. Pt has independent in room and off unit for food order. Pt using this order to go off unit today for activities other than food (due to NPO status). Informed that she should not go off unit. Home Vraylar in pt bin, form signed by PA. CAMACHO getting increasingly dusky, painful and swollen throught shift, pulsepalpable, team aware. Pt increasingly frustrated throughout shift, due to late transportation to OR. Pt to OR at end of shift. VSS, will continue to monitor. PLAN MOVING FORWARD: Pain control Mobilize D/c planning INDIVIDUALIZED FALL PREVENTION INTERVENTIONS: Patient-specific fall risk factors per assessment: [current deficits]: Hospital environment, pain, pain medications Assistance [level of assistance required for transfers and ambulation]: Ind Supervision [direct monitoring required during toileting and ADLs]: Ind Surveillance [continuous indirect monitoring]: CAMRON Chow, bed alarm * Isamar Hoff APRN - 09/28/2021 8:58 AM EDT Images from the original note were not included. Follow Up Diabetes Consult Patient Interview Ryan is NPO this morning. She is awaiting surgery, she believes she is going to the OR at 3pm. Shereports that her pump is out of insulin and she removed this about an hour ago. Her friend is bringing her a new insertion set and insulin from her home. Objective Temp: [36.5 ??C (97.7 ??F)-36.6 ??C (97.9 ??F)] Heart Rate: -- Resp: [16-18] BP: (99-124)/(57-74) SpO2: [90 %-97 %] Heart Rate from SpO2: [82 bpm-87 bpm] Current Regimen from previous note Plan: 1. Lantus 30 units now - hold tomorrow (order was changed to 25 after note was completed) 2. Continue to use pump for meal time bolus and correction based on ISF 20 and CR of 1:5 confirmed in pump setttings 3. Diet: carb controlled 60/60/75 and NPO at midnight 4. Provide with new Dexcom CGM upon discharge Recent Glucose Levels Recent Labs 09/28/21 0542 09/27/21 2347 09/27/21 1958 09/27/21 1439 09/27/21 1129 09/27/21 0730 09/27/21 0648 09/27/21 0324 09/26/21 1945 POCGLU 91 230* 260* 125 147 114 128 139 223* ASSESSMENT Patient is a 46 y.o. years old female with PMH significant for poorly controlled T2DM, BMI 41, HTN,HLD, who was admitted on 09/26/2021 for a right humerus fracture after falling down a flight of stairs last week on 09/19.??Patient was initially trialed non-operatively with a mccauley brace, howeverhas developed skin breakdown, skin numbness in area of brace, and poor tolerance from pain standpoint. She is scheduled for an operative fixation of the right humerus. Currently has variability of blood glucose levels while hospitalized requiring adjustment of insulin regimen and DM medications. A1C updated upon admission and 11.9%. Ryan removed her pump this morning because she ran out of insulin. I estimate that she received about 16 units since midnight and her NPO status. She received 25 units of Lantus at 2:30 yesterday and woke up with a blood sugar of 91. She did spike after eating pizza and fruit and logging for 25 carbs. Her carb ratio is set at 1:5 based on her significant insulin requirements though she admits to not always bolusing for food or remembering to administer her Tresiba so her true insulin needs area bit unclear. Per her report, review of [facility] scripts and notes Ryan requires about 100 units of basal insulin daily, receiving 48 units from her pump and 50 units through an additional injection ofTresiba daily. Despite being NPO she continues to have a basal insulin requirement and conservatively will continue with the 25 units of Lantus daily. She will benefit from continued diabetic education. New Dexcom CGM and transmitter provided for her to use following surgery. PLAN 1. Lantus: 25 units 1400 today 2. Lispro for correction q 4 hours using ISF 20 for BG > 140 3. Return to pump after surgery when back to eating 4. Diet: NPO Isamar Hoff APRN [facility] [place] Endocrinology Diabetes Management Pager [phone] 20 minutes of this 35 minute visit was spent with the patient in counseling on diabetes and treatment plan, reviewing all glucose and insulin data as well as relevant laboratory results with the patient, and coordination of care on the inpatient unit including nursing and primary team. * Demian Whitehead MD - 09/28/2021 6:34 AM EDT ORTHOPAEDIC SURGERY INPATIENT PROGRESS NOTE Patient Name: Guzman Jean Age: 46 y.o. Surgery/Issue: Right humerus fracture Attending: Dr. Jenkins Date of surgery: 09/27/2021 SUBJECTIVE / INTERVAL HISTORY: Guzman had some discomfort overnight, but is doing better this morning. NO new weakness, nor neurovascular complaints. No issues overnight. Patient offers no complaints. Pain well controlled, denies N/V. No chest pain, SOB, other issues. FOCUSED REVIEW OF SYSTEMS: as above. Active Hospital Problems Diagnosis ??? Humerus fracture ??? Adult BMI 40.0-44.9 kg/sq m Resolved Hospital Problems No resolved problems to display. Active Non-Hospital Problems Diagnosis ? ? Vitamin D deficiency (25vitD 14.5 on 05/16/13-> 29 on 07/07/19) ??? 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 Vitamin B12 deficiency (used to take B12 shots previously) ??? Hypertension ??? History of tobacco use ??? Fatty liver determined by biopsy 11/25/2009; mildly elevated LFTs ??? Chronic nonintractable headache ??? Tobacco use in , childbirth, or the puerperium, antepartum ??? Episodic mood disorder ??? Depression complicating , antepartum ??? Insulin overdose with S/I in 2013, insulin was then given under supervision ??? Suicidal ideation ??? Hyperlipidemia ??? Low back pain ??? Polycystic ovaries with irregular periods and hirsutism s/p bilateral tubal ligation ??? Type 2 diabetes mellitus MEDICATIONS: ??? glucose (Glutose) 40% oral geL OR dextrose 10% infusion OR glucagon (Glucagen) (1 mg/mL) injection solution 1 mg ??? insulin lispro (HumaLOG;Admelog) (100 unit/mL) subcutaneous injection vial 0-8 Units ??? INSULIN PUMP (PATIENT OWN) ??? QUEtiapine (SEROquel) tablet 400 mg ??? ipratropium-albuteroL (Duoneb) 0.5 mg-3 mg(2.5 mg base)/3 mL nebulizer solution 3 mL ??? amLODIPine (Norvasc) tablet 10 mg ??? busPIRone (Buspar) tablet 10 mg ??? clonazePAM (KlonoPIN) tablet 1 mg ??? cloNIDine (Catapres) tablet 0.2 mg ??? cyclobenzaprine (Flexeril) tablet 5 mg ??? gabapentin (Neurontin) capsule 800 mg ??? labetaloL (Normodyne) tablet 200 mg ??? ondansetron ODT (Zofran-ODT) disintegrating tablet 4 mg ??? famotidine (Pepcid) tablet 20 mg ??? rosuvastatin (Crestor) tablet 20 mg ??? oxyCODONE (Roxicodone) tablet 5-10 mg OR oxyCODONE (Roxicodone) tablet 10-15 mg ??? acetaminophen (Tylenol) tablet 1,000 mg ??? nicotine (Nicoderm CQ) 14 mg/24 hr patch 14 mg AND nicotine (NICODERM CQ) 14 mg/24 hr patchPatch Verification AND nicotine (NICODERM CQ) 14 mg/24 hr patch Patch Removal ??? sodium chloride 0.9 % (flush) (BD PosiFlush Normal Saline 0.9) flush 5 mL ??? sodium chloride 0.9 % (flush) (BD PosiFlush Normal Saline 0.9) flush 5-20 mL ??? lidocaine (Xylocaine) 1% (10 mg/mL) injection 3 mg ??? enoxaparin (Lovenox) (40 mg/0.4 mL) subcutaneous injection 40 mg ??? docusate sodium (Colace) capsule 100 mg ??? senna-docusate (Pericolace) 8.6-50 mg per tablet 2 tablet ??? melatonin tablet 3 mg OBJECTIVE: Temp: [36.5 ??C (97.7 ??F)-36.8 ??C (98.2 ??F)] Resp: [16-18] BP: (99-135)/(57-83) Intake/Output Summary (Last 24 hours) at 09/28/2021 0634 Last data filed at 09/28/2021 0000 Gross per 24 hour Intake 200 ml Output -- Net 200 ml BMI: There is no height or weight on file to calculate BMI. PE: General: awake/alert, responds to questions CV: RRR assessed peripherally Resp: Breathing comfortably on RA RUE: Diffuse swelling to extremity and ecchymosis of shoulder/antecubital vito/distal forearm; superficial abrasion of arm (lateral and medial likely from brace/splinting) Sensation intact to light touch in ax/m/u/R distributions but diminished diffusely to arm/forear/hand and all fingers Motor intact to wrist flexion/extension, digit flexion/extension, AIN, PIN, IO but weak and somewhat limited by pain Brisk capillary refill distally, fingers warm/well-perfused. Palpable radial pulse Lab Results Component Value Date NA 137 09/28/2021 K 3.3 (L) 09/28/2021 CL 105 09/28/2021 CO2 20 (L) 09/28/2021 BUN 10 09/28/2021 CREATININE 0.51 (L) 09/28/2021 GLUCOSE 111 09/28/2021 CALCIUM 8.9 09/28/2021 Lab Results Component Value Date WBC 11.0 (H) 09/28/2021 HGB 12.8 09/28/2021 HCT 37.3 09/28/2021 MCV 95.6 (H) 09/28/2021 PLATELET 260 09/28/2021 Lab Results Component Value Date INR 0.9 09/27/2021 IMAGING: Awaiting imaging from transfer center ASSESSMENT / PLAN: Guzman Jean is a 46 y.o. female Day of Surgery who presents with R humerus fracture that failed nonop management. Plan will be for operative intervention pending receiving imaging. NPO for plan of OR today. - Activity: NWB RUE - Antibiotics: Periop Ancef - DVT px: LVX - Diet: NPO Demian Whitehead MD 09/28/2021 No future appointments. Associated attestation - Geronimo Giron MD - 09/28/2021 5:35 PM EDT Patient personally seen and examined by me. I discussed the patient and the plan for the patient's care with the primary author and reviewed the data. I have reviewed and agree with the findings and the plan of care as outlined below. NPO Plan for surgery today, right humeral shaft ORIF Geronimo Giron MD Department of Orthopaedics 09/28/21 * Megan Bansal RN - 09/27/2021 3:30 PM EDT OUTCOME EVALUATION NOTE: OUTCOME SUMMARY: No reports of SOB, chest pain, or n/v throughout shift. Pain controlled adequately with scheduled and PRN medications, see MAR. Endocrine came down to work with the Pt, for more information, see note. Allowed to use own insuline pump0 for Q4 hour checks and meal coverage. Has orders to walk IND in the room and down to the mall/food court. Q 4 FS. Pt A&Ox4 throughout shift. VSS on RA. Will continue to monitor. PLAN MOVING FORWARD: Pain control Mobilize Q4 FS D/c planning INDIVIDUALIZED FALL PREVENTION INTERVENTIONS: Patient-specific fall risk factors per assessment: [current deficits]: Hospital environment, pain, pain medications Assistance [level of assistance required for transfers and ambulation]: IND Supervision [direct monitoring required during toileting and ADLs]: IND Surveillance [continuous indirect monitoring]: CAMRON Chow, room near nurses station * Yaron Tyson MD - 09/27/2021 4:06 AM EDT ORTHOPAEDIC SURGERY INPATIENT PROGRESS NOTE Patient Name: Guzman Jean Age: 46 y.o. Surgery/Issue: Right humerus fracture Attending: Dr. Jenkins Date of surgery: 09/27/2021 SUBJECTIVE / INTERVAL HISTORY: No issues overnight. Patient offers no complaints. Pain well controlled, denies N/V. No chest pain,SOB, other issues. FOCUSED REVIEW OF SYSTEMS: as above. Active Hospital Problems Diagnosis ??? Humerus fracture Resolved Hospital Problems No resolved problems to display. Active Non-Hospital Problems Diagnosis ? ? Vitamin D deficiency (25vitD 14.5 on 05/16/13-> 29 on 07/07/19) ??? 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 Adult BMI 40.0-44.9 kg/sq m ??? Vitamin B12 deficiency (used to take B12 shots previously) ??? Hypertension ??? History of tobacco use ??? Fatty liver determined by biopsy 11/25/2009; mildly elevated LFTs ??? Chronic nonintractable headache ??? Depression, BPD, anxiety ??? Insulin overdose with S/I in 2013, insulin was then given under supervision ??? Suicidal ideation ??? Hyperlipidemia ??? Low back pain ??? Polycystic ovaries with irregular periods and hirsutism s/p bilateral tubal ligation ??? Type 2 diabetes mellitus MEDICATIONS: ??? ipratropium-albuteroL (Duoneb) 0.5 mg-3 mg(2.5 mg base)/3 mL nebulizer solution 3 mL ??? amLODIPine (Norvasc) tablet 10 mg ??? busPIRone (Buspar) tablet 10 mg ??? clonazePAM (KlonoPIN) tablet 1 mg ??? cloNIDine (Catapres) tablet 0.2 mg ??? cyclobenzaprine (Flexeril) tablet 5 mg ??? gabapentin (Neurontin) capsule 800 mg ??? labetaloL (Normodyne) tablet 200 mg ??? ondansetron ODT (Zofran-ODT) disintegrating tablet 4 mg ??? QUEtiapine (SEROquel) tablet 400 mg ??? famotidine (Pepcid) tablet 20 mg ??? rosuvastatin (Crestor) tablet 20 mg ??? oxyCODONE (Roxicodone) tablet 5-10 mg OR oxyCODONE (Roxicodone) tablet 10-15 mg ??? acetaminophen (Tylenol) tablet 1,000 mg ??? glucose (Glutose) 40% oral geL OR dextrose 10% infusion OR glucagon (Glucagen) (1 mg/mL) injection solution 1 mg ??? POCT Fingerstick Glucose AND insulin lispro (HumaLOG;Admelog) (100 unit/mL) subcutaneous injection vial 1-4 Units ??? nicotine (Nicoderm CQ) 14 mg/24 hr patch 14 mg AND nicotine (NICODERM CQ) 14 mg/24 hr patchPatch Verification AND nicotine (NICODERM CQ) 14 mg/24 hr patch Patch Removal ??? sodium chloride 0.9 % (flush) (BD PosiFlush Normal Saline 0.9) flush 5 mL ??? sodium chloride 0.9 % (flush) (BD PosiFlush Normal Saline 0.9) flush 5-20 mL ??? lidocaine (Xylocaine) 1% (10 mg/mL) injection 3 mg ??? enoxaparin (Lovenox) (40 mg/0.4 mL) subcutaneous injection 40 mg ??? docusate sodium (Colace) capsule 100 mg ??? senna-docusate (Pericolace) 8.6-50 mg per tablet 2 tablet ??? melatonin tablet 3 mg OBJECTIVE: Temp: [36.6 ??C (97.9 ??F)-36.8 ??C (98.2 ??F)] Heart Rate: [90] Resp: [16-20] BP: (112-144)/(55-79) Intake/Output Summary (Last 24 hours) at 09/27/2021 0406 Last data filed at 09/27/2021 0000 Gross per 24 hour Intake 200 ml Output -- Net 200 ml BMI: There is no height or weight on file to calculate BMI. PE: General: awake/alert, responds to questions CV: RRR assessed peripherally Resp: Breathing comfortably on RA RUE: Diffuse swelling to extremity. Sensation intact to light touch in ax/m/u distributions. Decreased in radial distribution. Motor intact to wrist flexion/extension, digit flexion/extension, AIN, PIN, IO Brisk capillary refill distally, fingers warm/well-perfused. Palpable radial pulse Lab Results Component Value Date NA 138 05/23/2020 K 4.3 05/23/2020 CL 103 05/23/2020 CO2 23 05/23/2020 BUN 11 05/23/2020 CREATININE 0.69 (L) 05/23/2020 GLUCOSE 158 05/23/2020 CALCIUM 9.9 05/23/2020 No results found for: WBC, HGB, HCT, MCV, PLATELET IMAGING: Awaiting imaging from transfer center ASSESSMENT / PLAN: Guzman Jean is a 46 y.o. female who presents with R humerus fracture that failed nonop management. Plan will be for operative intervention pending receiving imaging. Please keep NPO. - Activity: NWB RUE - Antibiotics: Periop Ancef - DVT px: LVX - Diet: NPO Yaron Tyson MD 09/27/2021 No future appointments. Associated attestation - Madelaine Jenkins MD - 09/27/2021 12:47 PM EDT Patient seen and examined. Agree with resident note. Mariaa Jenkins MD Department of Orthopaedics 09/27/21 * Zuly Tam RN - 09/27/2021 3:17 AM EDT OUTCOME EVALUATION NOTE: OUTCOME SUMMARY: Pt A&O x 4, VSS on RA. Right arm edematous, brusied with rash noted to posterior aspect. Extremity elevated and ice applied prn. Pt planned for ORIF right humerus today, time unknown. NPO at DC for surgery. Pt with type II DM, currently with home insulin pump infusing. Awaiting endocrinology for diabetes and insulin management. Pt with known history of active sleep walking and moved into private room for her and roommate safety. Patient progressing towards d/c goals appropriately at this time. Patient's pain adequately controlled with scheduled and PRN medications, see MAR for medicationsgiven. Will continue to monitor and help patient reach d/c goals. PLAN MOVING FORWARD: Pain control Mobilize Planned surgery D/C planning INDIVIDUALIZED FALL PREVENTION: Patient is currently a high risk to Fall. Patient educated on bed/chair alarm, demonstrates proper use of call lindsay and verbalizes understanding of fall preventions implemented. Patient-specific fall risk factors per assessment: [current deficits]: Pain, Medications, Hospital Environment, Impaired Mobility, Pendingt Surgery Assistance [level of assistance required for transfers and ambulation]: SBA Supervision [direct monitoring required during toileting and ADLs]: Eyes on with ADL's Surveillance [continuous indirect monitoring]: Claudine, Purposeful Rounding, Nurse Knowledge Exchange at Bedside, Bed Alarm Set * Nu Wei RN - 09/26/2021 9:47 PM EDT Assumed care of patient from [id number]. Patient's pain better controlled in that time. Patient endorsing tingling to fingertips. Patient denies chest pain, SOB, nausea. Patient seen by provider around 2129. Nighttime medications given to patient. Patient transferred to room [facility] for safety r/t history of sleep walking. Report given to PRISCILA Caruso. Nu Wei RN * Nerissa Eason RN - 09/26/2021 6:35 PM EDT Pt reporting 10/10 pain, Team paged x3 for Admission orders and order reconciliation. PCR obtained. Pt tearful/anxious stating she would like to leave. Evy Crystal paged to bedside, per MD unable to see pt at this time. * Nerissa Eason RN - 09/26/2021 5:04 PM EDT [facility] for R humerus fx s/p fall last Saturday. Pt ambulated to roomwithout difficulty. Pt is currently wearing a sling. Pt A&O, VSS on RA. Pt reports significant pain + spasms to RUE. 2+ edema noted. Pt reports numbness/ tingling, 2+ radial pulse. Red rash with pustules noted to R upper arm in band-like formation. Evy Crystal MD paged for order reconciliation. Pt oriented to room, call lindsay within reach. Bed alarm on for Safety. documented in this encounter H&P Notes * Demian Whitehead MD - 09/28/2021 6:36 AM EDT Patient Name: Guzman Jean Patient Age: 46 y.o. Birthdate: 1975 Admit date: 09/26/2021 Attending Physician: Madelaine Jenkins MD / Dr. Giron Preop H+P The patient's history and physical exam have been reviewed and completed. There has been no interval change from that of the pre-operative history and physical exam done within the last 30 days. General: NAD CV: RRR Pulm: CTAB RUE marked Associated attestation - Geronimo Giron MD - 09/29/2021 11:14 AM EDT I have seen and examined the patient and reviewed the attached history/physical and all imaging Srinath agree with the details as written. The assessment and plan were formulated in discussion with me and I agree with them as documented, with the following additions or alterations: 46F RHD who fell while sleepwalking 1 week ago on 09/19/2021 injuring her right arm. She was evaluated at an outside hospital and found to have a oblique humeral midshaft fracture. She was treated closed with a Mccauley brace. However she could not tolerate the brace as she started developing skin b reakdown and numbness and tingling around the brace. She does have some numbness and tingling and radiating pain down her forearm and hand however she is neurovascularly intact and has full strength of her AIN/PIN/hand intrinsics. There is skin breakdown and maceration along the medial and posterior aspect of her arm. She also has obesity, BMI 41, poorly controlled type 2 diabetes with a recent hemoglobin A1c of 12. She also smokes 1 pack/day. I had a long discussion with her regarding her injury. She is no longer tolerating closed management and is now a candidate for surgical fixation. We discussed her treatment options including surgical and nonsurgical treatment. Nonsurgical treatment would be continuing with Mccauley brace. Surgical treatment would be open reduction internal fixation with plates and screws. We discussed the risks of surgery including but are not limited to pain, infection, bleeding, damage to surrounding tissue, need for further surgery, malunion, nonunion, failure to heal, deep vein thrombosis, pulmonary embolism, and . Benefits would be improved reduction and alignment, improved union rate, pain control, early range of motion and return to function, decreasing complications of Mccauley bracing. She understands her treatment options and would like to proceed with surgery. She understands that she has at higher risk of complications because of her o besity, poorly controlled diabetes, and smoking. Endocrinology has been consulted to help her better control her blood sugars. I also provided smoking cessation counseling. She understands all this and would like to continue with surgery. Plan: Right humerus open reduction internal fixation Geronimo Giron MD Department of Orthopaedics 09/29/2021 * Yaron Tyson MD - 09/27/2021 4:11 AM EDT Patient Name: Guzman Jean Patient Age: 46 y.o. Birthdate: 1975 Admit date: 09/26/2021 Attending Physician: Madelaine Jenkins MD Preop H+P The patient's history and physical exam have been reviewed and completed. There has been no interval change from that of the pre-operative history and physical exam done within the last 30 days. General: NAD CV: RRR Pulm: CTAB RUE marked * Nathen Crystal MD - 09/26/2021 3:20 PM EDT ORTHOPAEDIC SURGERY H+P NOTE ATTENDING: Dr. Jenkins CHIEF COMPLAINT: Right humerus fracture HPI: Guzman Jean is a 46 y.o. female with hx of poorly controlled diabetes who suffered a right humerus fracture after falling down a flight of stairs last week on 09/19. Patient was initially trialed non-operatively with a mccauley brace, however has developed skin breakdown, skin numbness inarea of brace, and poor tolerance from pain standpoint. The patient denies CP/SOB/N/V/F/C. FOCUSED REVIEW OF SYSTEMS: Pertinent positive and negative findings in HPI as above. Active Hospital Problems Diagnosis ??? Humerus fracture Resolved Hospital Problems No resolved problems to display. Active Non-Hospital Problems Diagnosis ? ? Vitamin D deficiency (25vitD 14.5 on 05/16/13-> 29 on 07/07/19) ??? 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 Adult BMI 40.0-44.9 kg/sq m ??? Vitamin B12 deficiency (used to take B12 shots previously) ??? Hypertension ??? History of tobacco use ??? Fatty liver determined by biopsy 11/25/2009; mildly elevated LFTs ??? Chronic nonintractable headache ??? Depression, BPD, anxiety ??? Insulin overdose with S/I in 2013, insulin was then given under supervision ??? Suicidal ideation ??? Hyperlipidemia ??? Low back pain ??? Polycystic ovaries with irregular periods and hirsutism s/p bilateral tubal ligation ??? Type 2 diabetes mellitus FAMILY HISTORY: Negative for bleeding/clotting disorders or anesthetic complications. SOCIAL HISTORY: Social History Tobacco Use Smoking Status Current Every Day Smoker ??? Packs/day: 1.00 ??? Types: Cigarettes Smokeless Tobacco Never Used Tobacco Comment marijuana occasionally Social History Substance and Sexual Activity Alcohol Use None Endorses 1 pack per day tobacco smoking MEDICATIONS: ??? nicotine (Nicoderm CQ) 14 mg/24 hr patch 14 mg AND [START ON 09/27/2021] nicotine (NICODERM CQ) 14 mg/24 hr patch Patch Verification AND [START ON 09/27/2021] nicotine (NICODERM CQ) 14 mg/24 hr patch Patch Removal OBJECTIVE: Temp: [36.6 ??C (97.9 ??F)] Heart Rate: [90] Resp: [20] BP: (123-141)/(55-79) No intake or output data in the 24 hours ending 09/26/211858 There is no height or weight on file to calculate BMI. PHYSICAL EXAM: Gen: NAD, resting comfortably, AOx3 HEENT: NC, AT CV: RRR assessed peripherally Pulm: No increased WOB Skin: Maceration on medial aspect of distal humerus. Ecchymosis of antecubital fossa Psych: Nl mood and affect Right Upper Extremity Exam: TTP over humeral shaft. Pain and intermittent muscle spasms with shoulder or elbow movement. Painless range of motion of wrist / fingers Moderate swelling of elbow, forearm and hand Compartments soft and compressible. Diffuse decreased sensation of skin over distal humerus and proximal forearm in vicinity of prior mccauley brace placment. Otherwise, sensation intact to light touch in Ax/M/R/U distributions Motor intact (5/5) wrist flexion/extension, utilization review rn, EPL, AIN, IO Brisk capillary refill distally 2+ radial pulse LABS: CBC, BMP, T+S, coags in AM. IMAGING: Will obtain imaging from referring institution. ASSESSMENT/RECOMMENDATIONS: 46 y.o. female with hx of poorly controlled diabetes who suffered a right humerus fracture after falling down a flight of stairs last week on 09/19. Poorly tolerating non-operative managament due to pain, and skin breakdown. Planning for operative fixation of right humerus fracture. - Activity- NWB RUE in sling - DVT prophylaxis- lovenox nightly - Antibiotics: periop - Diet - NPO at midnight - Pend for ORIF R humerus - Imaging needed- pending imaging from referring institution - Consult Diabetes management Nathen Crystal MD P. [phone] 09/26/21 6:59 PM No future appointments. documented in this encounter Miscellaneous Notes * Care Management Discharge - Cary Arteaga RN - 09/29/2021 2:15 PM EDT CARE MANAGEMENT FINAL DISCHARGE NOTE Chart reviewed, care reviewed with primary team and at interdisciplinary rounds. Patient is medically ready for discharge today per primary team. 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 Current Living Arrangements: home/apartment/condo. Accessibility Concerns:pt denies accessibility concerns. Current Functional Ability: Independent DME used at home: none DME Needed at Discharge: none Patient is insured through: Primary Insurance: [place] Payor: [place] / Plan: [place] PRIMARY CARE [place] / Product Type: *No Product type* / Secondary Insurance: N/A Prescription Coverage: Yes This plan was formulated with input from patient and team. All are in agreement with plan. Office of Care Management Surgery Team Nail Technician Teacher Cary MORGAN RN [email or web address] Pager #[phone] * Initial Assessments - Dahiana García, OT - 09/29/2021 12:48 PM EDT Occupational Therapy Evaluation Patient Profile: Guzman Jean is a 46 y.o. female admitted on 09/26/2021 for ORIF 09/28/21 of R mid shaft humeral fracture 2' fall down stairs. Pt history of 1 PPD smoking, obesity, poorly controlled diabetes hemoglobin A1c 12, who fell while sleepwalking 1 week ago on 09/19/2021 injuring her right arm. ??She was evaluated at an outside hospital and found to have a oblique humeral midshaft fracture. ??She was treated closed with a Sarmientobrace. ??However she could not tolerate the brace as she started developing skin breakdown and numbn ess and tingling around the brace. ??She does have some numbness and tingling and radiating pain down her forearm and hand however she is neurovascularly intact and has full strength of her AIN/PIN/hand intrinsics. Active Non-Hospital Problems Diagnosis ? ? Vitamin D deficiency (25vitD 14.5 on 05/16/13-> 29 on 07/07/19) ??? 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 Vitamin B12 deficiency (used to take B12 shots previously) ??? Hypertension ??? History of tobacco use ??? Fatty liver determined by biopsy 11/25/2009; mildly elevated LFTs ??? Chronic nonintractable headache ??? Tobacco use in , childbirth, or the puerperium, antepartum ??? Episodic mood disorder ??? Depression complicating , antepartum ??? Insulin overdose with S/I in 2013, insulin was then given under supervision ??? Suicidal ideation ??? Hyperlipidemia ??? Low back pain ??? Polycystic ovaries with irregular periods and hirsutism s/p bilateral tubal ligation Social History: Pt lives with her boyfriend, 7 year old child, and client. Pt's home is 2 stories, but she has moved a bed to the 1st floor since the fall. o Home Set-Up: - Set up on 1st floor - Has tub shower. - Has been sleeping in recliner o PLOF:Pt was independent with ADLs/IADLs and mobility prior to fall, and has been managing at homein brace since the fall, but with increasing pain and intolerance to brace. o DME:none o Falls: fall led to injury Precautions/Special Considerations: ?? NWB RUE, ok for ADLs, limit lifting to <2lbs ?? Leave dressings until follow up ?? Sling for comfort Subjective: I can get my own shirt on and off. (Pt though required cues to doff sling 1st. Objective: Seen today for OT evaluation. Vital Signs: o Stable on room air. Pain: tolerable Skin: R UE adrian wrapped and in standard arm sling. Joshi on chest from EKG leads- ? Skin sensitive. Cognitive Status/Behavior: o Behavior / Mood: alert and cooperative o Alert and oriented to: person, place, time and situation o Follows commands: 1 step o Attention: WFL o Safety awareness: WFL Vision & Perception: o WNL/WFL- with glasses Communication/Hearing: o Hearing WFL bilaterally o Speech intact Musculoskeletal: o Hand dominance: right o ROM: - L UE moving WFL - R UE limited 2' swelling and discomfort after surgery and supported in sling. Pt can open/close hand, and bend/extend wrist. Pt having trouble bending/fully extending arm at elbow 2' dressing/discomfort/swelling. Pt not moving shoulder today. Educated in TSA exercises to do and provided handout (ie. Hand squeezes, elbow flexion/extension, supination/pronation and neck stretches). Pt issued sponge to squeeze. o Strength: L UE WFL. R UE limited given recent surgery/discomfort. o Sensation: denies paresthesias in R UE. o Coordination: impaired 2' without functional use of R UE Activities of Daily Living: o Self-feeding: Adapting and doing with non dominant after set up. o Grooming: Modified independent, using L vs. R. o Dressing: Cues to remove sling before shirt. Pt could do both tasks seated eob (ie. Doff/harleen sling, and shirt). o Pt states she wears slip on shoes at home, and no socks. o Pt able to don pants, but states some trouble pulling up fully in back, discussed using of tongs.Pt states she has at home. o Bathing: Pt states she showered yesterday,and BF can bag arm. Pt has 2nd sling to support arm. Ptwill look into getting seat for shower, currently doesn't have one. o Toileting: Modifed independent using L. Functional Mobility: o Supine <> Sit: Modified independent, plans to sleep in recliner. o Sit <> Stand: independent o Ambulation: Supervised/independent with cues for topographical orientation on unit. Balance: o Sitting Static: good o Sitting Dynamic: good o Standing Static:good o Standing Dynamic / Gait: fair Education: Patient has been educated on Role of occupational therapy and rehabilitation, Transfers,ADL's, Positioning, Safety, Functional Mobility, DME Recommendations, Safe ROM/Exercise, and Discharge planning. Patient verbalized understanding. Patient status, treatment, and activity/mobility recommendations discussed with nursing. Assessment: Pt has been seen for occupational therapy evaluation. Guzman Jean presents with the following performance skill deficits and client factors: increased pain, decreased flexibility/ROM, decreased strength and precautions/bracing. These performance deficits have led to activity limitations and participation restrictions in the following areas of occupation: dressing, bathing, home management, work, leisure and driving. However, despite the deficits listed above pt demonstrates the ability to complete basic self-care independently using modified techniques (ie. L UE to complete tasks) and functional mobility tasks. Anticipate that pt will return home with assistance once medically ready. Do not anticipate further OT needs while hospitalized, but Pt will benefit from outpatient OT/PT to help her regain ROM/strength, and function of R UE as Pt is R handed. Equipment Recommendations: Equipment Needs Upon Discharge (OT): (shower seat (has 2nd sling already)) Anticipated Discharge Disposition (OT): home with supervision, home with outpatient therapy services OT: Therapy Frequency (OT): evaluation only Total Minutes, Occupational Therapy: 12 (12:48-13:05 (eval)) 2017 OT Evaluation Code Rationale: Diagnosis & Pertinent Co-Morbidities affecting Plan of Care: see PMHx Occupational Profile & Client History: Brief Expanded Extensive x Assessment of Occupational Performance: 1-3 performance deficits x 3-5 performance deficits 5 + performance deficits Clinical Decision Making: Low Moderate High x Clinical decision making of low complexity using standardized patient assessment instrument and measurable assessment of functional outcome. Dahiana García, OTR Pager [phone] Occupational Therapy Rehabilitation Department * Brief Op Note - Jasper Moreno MD - 09/28/2021 9:31 PM EDT Brief Operative Note Patient Name: Guzman Jean : [id number] MR#: [id number] Case Date: 09/28/2021 Surgeon: Surgeon(s) and Role: * Geronimo Giron MD - Primary * Jasper Moreno MD - Resident Preoperative diagnosis: Right humeral shaft fracture Postoperative diagnosis: Right humeral shaft fracture Procedure(s) (LRB): ORIF HUMERAL SHAFT FX. (WRVU 12.12) (Right) MODIFIER: 3.5MM LCP PERIARTICULAR PROXIMAL HUMERUS PLATE SET SYNTHES (Right) MODIFIER LOCKING SMALL FRAGMENT SYNTHES (N/A) Anesthesia: General . Findings: Midshaft humerus fracture with butterfly fragment. Lag screw and bridge plate placed. Noted to have superficial skin rash on medial and posterior aspects of arm dressed with xeroform. Complications: None Estimated Blood Loss: 20 mL* No values recorded between 09/28/2021 6:25 PM and 09/28/2021 8:03 PM * Specimens removed during surgery: None Fluids: Intraprocedure Crystalloid Total None PRBCs: none (See Anesthesia Record/Report for Other Blood Products) Urine Output: (no urine output recorded) Drains: none Disposition: awakened from anesthesia, extubated and taken to the recovery room in a stable condition, having suffered no apparent untoward event. Condition: doing well without problems (Please see the Surgical Encounter Summary for any Implant and Specimen details pertinent to this patient.) Surgical Infection Prevention Bundle Used? N/A periop ancef given * Op Note - Geronimo Giron MD - 09/28/2021 6:25 PM EDT [facility] Operative Note Patient Name: Guzman Jean : [id number] MR#: [id number] Case Date: 09/28/2021 Surgeon: Surgeon(s) and Role: * Geronimo Giron MD - Primary * Jasper Moreno MD - Resident * Jim Do MD - Resident Preoperative diagnosis: Right humeral shaft fracture Postoperative diagnosis: Right humeral shaft fracture Procedure(s) (LRB): ORIF HUMERAL SHAFT FX. (WRVU 12.12) (Right) MODIFIER: 3.5MM LCP PERIARTICULAR PROXIMAL HUMERUS PLATE SET SYNTHES (Right) MODIFIER LOCKING SMALL FRAGMENT SYNTHES (N/A) Findings: Right oblique midshaft humerus fracture. Intact radial nerve. Fracture reduced and compressed with a 2.7 mm lag screw. A Synthes 9 hole narrow large fragment 4.5 mm LCP plate was used for fixation. Radial nerve lied over the fifth hole. Anesthesia: General Estimated Blood Loss: 20 mL Specimens removed during surgery: None Drains: * No LDAs found * Surgical Closure: Primary Closure - skin incision is completely closed without any wires, alana, drains or other devices Disposition: awakened from anesthesia, extubated and taken to the recovery room in a stable condition, having suffered no apparent untoward event. Condition: doing well without problems (Please see the Surgical Encounter Summary for any Implant and Specimen details pertinent to this patient.) HPI/Surgical Indications: This is a 46F RHD, history of 1 PPD smoking, obesity, poorly controlled diabetes hemoglobin A1c 12, who fell while sleepwalking 1 week ago on 09/19/2021 injuring her right arm. She was evaluated at an outside hospital and found to have a oblique humeral midshaft fracture. She was treated closed with a Mccauley brace. However she could not tolerate the brace as she started developing skin breakdown and numbness and tingling around the brace. She does have some numbness and tingling and radiating pain down her forearm and hand however she is neurovascularly intact and has full strength of her AIN/PIN/hand intrinsics. She is no longer tolerating closed management and is now a candidate for surgical fixation. We discussed her treatment options including surgical and nonsurgical treatment. Nonsurgical treatment would be continuing with Mccauley brace. Surgical treatment would be open reduction internal fixation with plates and screws. We discussed the risks of surgery including but are not limited to pain, infection, bleeding, damage to surrounding tissue, needfor further surgery, malunion, nonunion, failure to heal, deep vein thrombosis, pulmonary embolism,and . Benefits would be improved reduction and alignment, improved union rate, pain control, early range of motion and return to function, decreasing complications of Mccauley bracing. She understands her treatment options and would like to proceed with surgery. She understands that she has at higher risk of complications because of her obesity, poorly controlled diabetes, and smoking. Endocrinology has been consulted to help her better control her blood sugars. I also provided smoking cessation counseling. She understands all this and would like to continue with surgery. Procedure Description: The patient was brought to the operating room and identified. The patient underwent induction of general anesthesia and was transferred to a diving board operating table in a prone position. All bony prominences and pressure points were padded appropriately. The patient received prophylactic antibiotics within 30 minutes of incision. The right upper extremity was then prepped and draped in sterile fashion. A preoperative time-out was held confirming the correct patient name, MRN, planned procedure, site, antibiotic start time andagent, and outline of any surgical concerns. All in attendance were in agreement to proceed. A 20 cm posterior approach was made to the humeral shaft. The dissection was taken sharply through skin and subcutaneous tissue. Venous bleeding was ligated with electrocautery. Triceps fascia was incised in line with the incision. A lateral fasciocutaneous flap was elevated between the triceps muscle andfascia. Triceps muscle was then elevated off the lateral intermuscular septum using blunt dissection and a Ptae elevator. The lateral antebrachial cutaneous nerve was identified and traced proximallytowards the radial nerve proper using Metzenbaum scissors for dissection. The radial nerve was found to be intact overlying the humeral shaft fracture. The lateral intermuscular septum was released over the radial nerve to prevent tethering of the nerve. The triceps was elevated off the posterior hu meral shaft both proximal and distal to the radial nerve and fracture site. The radial nerve was directly overlying the oblique midshaft fracture. The fracture was cleaned of fracture hematoma and debris. The triceps and radial nerve were gently retracted medially and the fracture was reduced usingbone reduction forceps as well as a modified Baer clamp through 2 drill holes for longitudinal compression. Fluoroscopic imaging showed satisfactory reduction. The fracture was then held with a 2.7 mm lag screw inserted with lag by technique from lateral to medial across the oblique fracture line. A Synthes 9 hole narrow 4.5 mm LCP plate was then contoured to not only match the curve of the humeral shaftbut also to provide far cortical compression. This was slid under the radial nerve on the bone. Theplate was then held with 3X 4.5 mm cortical screws both proximal and distal to the fracture. All screws had excellent purchase and fixation. The radial nerve rested over the fifth hole of the plate. Final fluoroscopic imaging showed satisfactory reduction and alignment, with safe placement of all hardware. Hemostasis was achieved with electrocautery. The wounds were irrigated. 1 g of vancomycin powder was mixed with saline to form a paste and applied directly over the plate. The triceps fascia was closed with 0-Vicryl and the skin was closed with 2-0 Vicryl and 3-0 nylon in horizontal mattress fashion. Dressings were applied with Xeroform 4 x 4's, webril, and an Adrian wrap. She was awakened and extubated in the operating room and taken to the recovery room in stable condition. All counts were correct there were no complications the patient appeared to tolerate the procedure well. Postoperative plan: The patient will be nonweightbearing to the right upper extremity. She is okay for ADLs, limit lifting to less than 2 pounds. She will receive less than 24 hours of perioperative antibiotics. She will be maintained on routine DVT prophylaxis. She will follow up in 2 weeks for xrays of the right humerus. Surgical Infection Prevention Bundle Used? No Attestation: Case Date: 09/28/2021 I was present and I participated during the entire procedure (does not need to include opening and closing). Geronimo Giron MD 09/29/2021 * Initial Assessments - Simon De La Paz MSW - 09/27/2021 5:36 PM EDT Office of Care Management Initial Assessment MARIEL Noel reviewed record and discussed patient with Care Team. Source of Information: Team, bedside nurse, medical record, and Patient PRESIDENT & CEO Introduced self/reviewed role; services accepted. Reason for Hospitalization: fell and broke right humerus, needs surgery Covid Vaccination Status: 1st, 2nd & booster Last COVID test: Lab Results Component Value Date [id number] Not Detected 09/26/2021 Past medical History: No past medical history on file. Hospitalizations Within the Past 30 Days: no previous admission in last 30 days Current Decision-Making Capacity: Self Advance Care Planning: Attempt Cardiopulmonary Resuscitation - Inpatient <no information> -Advanced Directive: No, declines If AD's have not been completed Malcom Alonzo would be surrogate decision maker per [place] surrogate decision making law. (Only good for 180 days) Any patient receiving care at [facility] must abide by [place] law. The hierarchy for surrogate decision making is: (a) Patient???s spouse, or civil union partner or common law spouse unless there is a divorce proceeding, separation agreement, or restraining order limiting that person???s relationship with the patient. (b) Any adult son or daughter of the patient. (c) Either parent of the patient. (d) Any adult brother or sister of the patient. (e) Any adult grandchild of the patient. (f) Any grandparent of the patient. (g) Any adult aunt, uncle, niece, or nephew of the patient. (h) A close friend of the patient. (i) The agent with financial power of district attorney or a conservator appointed in accordance with RSA 464-A. (j) The guardian of the patient???s estate. Current Coping/Education/Information Needs: Pt expresses understanding of her medical/surgical careneeds. She is hoping for clarification around the timing of her procedure. Pt enjoys staying active/busy and therefore is having some difficulty awaiting surgery. 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 Current Living Arrangements: home/apartment/condo. Accessibility Concerns:pt denies accessibility concerns. Resource / Environmental Concerns: Resource/Environmental Concerns: none Current DME: none Home Address confirmed as: [address] [address] Social & Family Supports: All names listed below confirmed with patient as current and correct Extended Emergency Contact Information Primary Emergency Contact: Malcom Alonzo Relation: Step parent Current Care Provided by: self (Pt states that her friend Anita has recently been assisting pt with showering.) Provides Primary Care For: other (see comments) (Andrew - 34yo male dx'd with Down Syndrome - lives with pt and her family) Caregiver if needed: friend(s), significant other Quality of Family relationships: involved, helpful, supportive Community Resources being provided currently: outpatient psychiatric care ([facility]) Behavioral Health History: BPD, PTSD, Anxiety Substance Use/Abuse confirmed: Social History Tobacco Use Smoking Status Current Every Day Smoker ??? Packs/day: 1.00 ??? Types: Cigarettes Smokeless Tobacco Never Used Tobacco Comment marijuana occasionally Pt denied ETOH use. 0 No problems reported 1-2 Low level 3-5 Moderate level 6-8 Substantial level 9- 10 Severe level 0 to 7 points: Low risk 8 to 15 points: Medium risk 16 to 19 points: High risk 20 to 40 points: Addiction likely Other Pertinent/Service Specific Information: na Health/Prescription Coverage: Primary Insurance: [place] Payor: [place] / Plan: [place] PRIMARY CARE PL[place] / Product Type: *No Product type* / Secondary Insurance: N/A Prescription Coverage: Yes Preferred Pharmacy: [id number] [place], [place] [facility] [place] [address] [address] Status: Patient is a : No Primary Care Provider: Jossie Patton APRN [phone] Patient/Caregiver Goals of Treatment: Pts goal is proceed with surgery and begin her recovery process Potential Needs for Transition of Care: none Agency Referrals: TBD Transportation: no concerns Transportation Anticipated: family or friend will provide Concerns to be Addressed: no discharge needs identified Assessment: Patient is admitted to Ortho service for right humerus fracture s/p falling down a flight of stairs on 09/19. Pt presents in a pleasant mood and willing to participate in this assessment. Pt lives with her SO (80yo), her 7yo dtr and a 34yo male with Down Syndrome whom pt is primary caregiver for - placed through [facility] Provider program; While she is hospitalized, pthas arranged for alternate care giving. Per documentation, pt has a significant mental health hx including hx of trauma. Pt denies current mh symptoms. Pt is mainly independent at baseline but recently having her friend assist with showering due to her injury. Pts SO Randal assists with household ch ores, shopping/meal prep. Pt reports being physically active and is having some difficulty being hospitalized. She is coping by taking walks both on/off the unit. Plan: PRESIDENT & CEO will remain available to pt for ongoing support throughout her admission and continue to check in with pt post op. A member of the Care Management team will continue to monitor progress, follow for continuity of care and assist with transition of care planning. MARIEL Mahoney Pager: [phone] * Consult Note - Isamar Hoff APRN - 09/27/2021 8:32 AM EDT Images from the original note were not included. Diabetes Management Team Inpatient Consult Date of Consultation: 09/27/2021 Consult Requested by: Orthopedics Reason for Consultation: Guzman Jean is a 46 y.o. female with PMH significant for poorly controlled T2DM, BMI 41, HTN, HLD, who was admitted on 09/26/2021 for a right humerus fracture after falling down a flight of stairs last week on 09/19. Patient was initially trialed non-operatively with a sa rmiento brace, however has developed skin breakdown, skin numbness in area of brace, and poor tolerance from pain standpoint. She is scheduled for an operative fixation of the right humerus tomorrow.We are being consulted to assist with diabetes management and to provide a review of alf diabetes care. RNs are checking BGs and Ryan is administering her own meal time bolus and correction from her pump. Diabetes History: Guzman Jean has a medtronic pump with humalog, takes Trulicity 1.5 mg weekly (last dose last Saturday) and administers Tresiba U 200 50 units daily. She is a patient of the [facility] endocrinology clinic. Current outpatient diabetes regimen: Diabetes Provider: Katharine Oneal Medications: Trulicity 1.5mg weekly Tresiba 50 units q am Medtronic pump: humalog MN 0700 2units/hr 7am MN 2.1 unit/hr CR 1:5 ISF 20 Monitoring is done generally with Dexcom though currently needs a new transmitter Most recent A1C: updating at this time Typical diet is: 3 meals and 1-2 snacks a day Breakfast- oatmeal Lunch-skips Supper- rarely eats, chicken/pizzadenies snacking Insulin administration site: abdomen Diabetes Complications Review: Eyes:No retinopathy Kidneys:No awareness of microalbuminuria, Feet: Normal shape, no history of foot ulcers, sometimes burning/numbness/tingling, no previous decreased sensation to monofilament testing, no prior amputations, Autonomic: No history of gastroparesis, problems emptying bladder, inability to detect hypoglycemia, or tachycardia Cardiac:No ??history of CAD, cardiac stents, cardiac bypass surgery,CHF, PVD, CVA Last urine protein measurement: Lab Results Component Value Date MICROALBUR <3.0 05/23/2020 Last Kidney function: Lab Results Component Value Date CREATININE 0.50 (L) 09/27/2021 Last lipid panel: Lipid Panel Lab Results Component Value Date LDLDIRECT 96 05/23/2020 Current Hospital Diabetes Care: Medications: Lispro sensitive sliding scale for correction CF 40 for BG > 160. Monitorin x daily before meals and at bedtime. Diet: 60/60/75, NPO at midnight REVIEW OF SYSTEMS: All 12 systems reviewed and negative except as noted per HPI. PMH No past medical history on file. Current Hospital Medications: ??? amLODIPine 10 mg Oral Daily ??? busPIRone 10 mg Oral Daily ??? clonazePAM 1 mg Oral Nightly ??? cloNIDine 0.2 mg Oral Daily ??? gabapentin 800 mg Oral TID ??? labetaloL 200 mg Oral BID ??? QUEtiapine 400 mg Oral Daily ??? famotidine 20 mg Oral Daily ??? rosuvastatin 20 mg Oral QPM ??? acetaminophen 1,000 mg Oral Q6H WON ??? insulin lispro 1-4 Units Subcutaneous TID AC ??? nicotine 1 patch Transdermal Daily And ??? Patch Verification 1 patch Transdermal BID And ??? nicotine 1 patch Transdermal Daily ??? sodium chloride 0.9 % (flush) 5 mL Intravenous BID ??? enoxaparin 40 mg Subcutaneous Nightly ??? docusate sodium 100 mg Oral BID ??? senna-docusate 2 tablet Oral BID Infusions: PRN: ipratropium-albuteroL, cyclobenzaprine, ondansetron ODT, oxyCODONE OR oxyCODONE, glucose 40% oral geL OR dextrose 10% OR glucagon, sodium chloride 0.9 % (flush), lidocaine, melatonin Allergy: Allergies Allergen Reactions ??? Lisinopril Social history: Social History Tobacco Use ??? Smoking status: Current Every Day Smoker Packs/day: 1.00 Types: Cigarettes ??? Smokeless tobacco: Never Used ??? Tobacco comment: marijuana occasionally Vaping Use ??? Vaping Use: Never used Family history: No family history on file. Vitals BP 135/83 (BP Location (NBP): Left arm, Patient Position: Lying) Pulse 90 Temp 36.8 ??C (98.2 ??F) (Oral) Resp 16 SpO2 96% Physical Exam: Gen: NAD, talking in clear sentences. Laying in bed comfortably Respiratory: breathing non-labored on RA Abd: Soft, non-distended, non-tender x4 quadrants SKIN: No open areas, bruising appreciated or redness to both feet Extremities: sensation intact, Distal pulses intact Neuro: Moving all extremities. Grossly non-focal Labs: Lab Results Component Value Date BUN 10 09/27/2021 CREATININE 0.50 (L) 09/27/2021 GLUCOSE 138 09/27/2021 ESTGFR 118 09/27/2021 Lab Results Component Value Date HA1C 10.0 (H) 05/23/2020 Lab Results Component Value Date MICROALBUR <3.0 05/23/2020 No results found for: CHLPL No results found for: HDL No results found for: LDLCHOL No results found for: TRIG No results found for: CHOLHDL Assessment: Patient is a 46 y.o. years old female with PMH significant for poorly controlled T2DM, BMI 41, HTN,HLD, who was admitted on 09/26/2021 for a right humerus fracture after falling down a flight of stairs last week on 09/19. Patient was initially trialed non-operatively with a mccauley brace, however has developed skin breakdown, skin numbness in area of brace, and poor tolerance from pain standpoint. She is scheduled for an operative fixation of the right humerus. Currently has variability of blood glucose levels while hospitalized requiring adjustment of insulin regimen and DM medications. Tresiba was held this morning. This represents about 50% of her total basal rate and is appropriateto continue holding while she is NPO though now with surgery scheduled for tomorrow will add Lantusat 30 units to support her basal insulin requirements now that she will be eating. Her pump administers about 40 units of humalog a day and can be used to support her basal needs tomorrow without goldie tional Lantus. Ryan will continue to administer corrections Q 4 hours based on her ISF of 20 as needed and her meal time bolus based on her carb ratio of 1:5. Plan: 1. Lantus 30 units now - hold tomorrow 2. Continue to use pump for meal time bolus and correction based on ISF 20 and CR of 1:5 confirmed in pump setttings 3. Diet: carb controlled 60/60/75 and NPO at midnight 4. Provide with new Dexcom CGM upon discharge Needs Thank you for allowing us to provide care for your patient Isamar Hoff APRN Endocrinology Diabetes Management Service Pager: [phone] 70 minutes of this 80 minute visit was spent in counseling on diabetes and treatment plan, reviewing all glucose and insulin data as well as relevant laboratory results with the patient and in the coordination of care on the inpatient unit. documented in this encounter Plan of Treatment Upcoming Encounters Date Type Department Care Team (Late st Contact Info) Description 02/21/2024 1:40 PM EDT Office Visit Endocrinology at [facility] [place] [phone] Kristi Caicedo APRN [facility] [place] [address] documented as of this encounter Procedures Procedure Name Priority Date/Time Associated Diagnosis Comments POCT GLUCOSE Routine 09/29/2021 11:27 AM EDT POCT GLUCOSE Routine 09/29/2021 8:21 AM EDT POCT GLUCOSE Routine 09/29/2021 6:39 AM EDT POCT GLUCOSE Routine 09/29/2021 5:27 AM EDT HEMOGRAM Routine 09/29/2021 3:37 AM EDT DIFFERENTIAL, AUTOMATED Routine 09/30/19 3:37 AM EDT HC CBC,PLT & AUTO DIFF Routine 3:37 AM EDT BASIC METABOLIC PANEL Routine 09/29/2021 3:37 AM EDT XR HUMERUS RIGHT STAT 09/28/2021 10:0 0 PM EDT XR FLUORO NO RAD <1HR - OR USE Routine 09/28/2021 9:44 PM EDT POCT GLUCOSE Routine 09/28/2021 7:05 PM EDT MODIFIER LOCKING SMALL FRAGMENT SYNTHES 09/28/2021 5:39 PM EDT Right humeral shaft fracture MODIFIER: 3.5MM LCP PERIARTICULAR PROXIMAL HUMERUS PLATE SET SYNTHES 09/28/2021 5:39 PM EDT Right humeral shaft fracture Open Fixatn Mid Humerus Fracture (05529) 09/28/2021 5:39 PM EDT Right humeral shaft fracture POCT GLUCOSE Routine 09/28/2021 3:44 PM EDT POCT GLUCOSE Routine 09/28/2021 11:21 AM EDT ORIF HUMERAL SHAFT FX. Routine 6:00 AM EDT POCT GLUCOSE Routine 09/28/2021 5:42 AM EDT HEMOGRAM Routine 09/28/2021 3:34 AM EDT DIFFERENTIAL, AUTOMATED Routine 09/29/19 3:34 AM EDT HC CBC,PLT & AUTO DIFF Routine 3:34 AM EDT BASIC METABOLIC PANEL Routine 09/28/2021 3:34 AM EDT POCT GLUCOSE Routine 09/27/2021 11:47 PM EDT POCT GLUCOSE Routine 09/27/2021 7:58 PM EDT POCT GLUCOSE Routine 09/27/2021 2:39 PM EDT HC VENIPUNCTURE Routine 09/27/2021 12:27 PM EDT POCT GLUCOSE Routine 09/27/2021 11:29 AM EDT XR HUMERUS RIGHT Routine 09/27/2021 9:09 AM EDT POCT GLUCOSE Routine 09/27/2021 7:30 AM EDT POCT GLUCOSE Routine 09/27/2021 6:48 AM EDT POCT GLUCOSE Routine 09/27/2021 3:24 AM EDT TYPE AND SCREEN VALIDITY Routine 09/27/2021 3:23 AM EDT ABORH RECHECK STATUS Routine 09/27/2021 3:23 AM EDT SCAN, PERIPHERAL BLOOD Routine 06/01/202 2 3:23 AM EDT HEMOGRAM Routine 09/27/2021 3:23 AM EDT DIFFERENTIAL, AUTOMATED Routine 09/28/19 3:23 AM EDT ABO/RH TYPING Routine 09/27/2021 3:23 AM EDT HC PARTIAL THROMBOPLASTIN TIME Routine 09/27/2021 3:23 AM EDT HC PROTHROMBIN TIME Routine 09/27/2021 3 :23 AM EDT HC CBC,PLT & AUTO DIFF Routine 3:23 AM EDT ANTIBODY SCREEN Routine 09/27/2021 3:23 AM EDT HC ANTIBODY DETECTION,CAPTURE-R Routine 09/27/2021 3:23 AM EDT BASIC METABOLIC PANEL Routine 09/27/2021 3:23 AM EDT POCT GLUCOSE Routine 09/26/2021 7:45 PM EDT RAPID COVID-19 PCR ([facility]) Routine 09/26/2021 5:10 PM EDT documented in this encounter Results * (ABNORMAL) POCT Glucose (09/29/2021 11:27 AM EDT) [facility] Glucose, POC 232(H) 65 - 199 mg/dL [facility] Comment: Supplemental ranges: <140 mg/dL before meals <180 mg/dL all other times of the day Blood 09/29/2021 11:2 7 AM EDT 09/29/2021 11:27 AM EDT Madelaine Jenkins MD POINT OF CARE TEST O RDERABLES [facility] [place] [address] * (ABNORMAL) POCT Glucose (09/29/2021 8:21 AM EDT) Glucose, POC 263(H) 65 - 199 mg/dL [facility] Comment: Supplemental ranges: <140 mg/dL before meals <180 mg/dL all other times of the day Blood 09/29/2021 8:21 AM EDT 09/29/2021 8:21 AM EDT Madelaine Jenkins MD POINT OF CARE TEST O RDERANIYA Performing Organization Address [facility] [address]/ZIP Co de Phone Number [facility] [place] [address] * (ABNORMAL) POCT Glucose (09/29/2021 6:39 AM EDT) Glucose, POC 243(H) 65 - 199 mg/dL [facility] Comment: Supplemental ranges: <140 mg/dL before meals <180 mg/dL all other times of the day Blood 09/29/2021 6:39 AM EDT 09/29/2021 6:39 AM EDT Madelaine Jenkins MD POINT OF CARE TEST O KRZYSZTOF Performing Organization Address [facility] [address]/[facility] Co de Phone Number [facility] [place] [address] * (ABNORMAL) POCT Glucose (09/29/2021 5:27 AM EDT) Glucose, POC 243(H) 65 - 199 mg/dL [facility] Comment: Supplemental ranges: <140 mg/dL before meals <180 mg/dL all other times of the day Blood 09/29/2021 5:27 AM EDT 09/29/2021 5:27 AM EDT Madelaine Jenkins MD POINT OF CARE TEST O RDERANIYA Performing Organization Address City/[facility] [address]/[place] [address] * (ABNORMAL) Differential, Automated (09/29/2021 3:37 AM EDT) Pathologist [facility] Neutrophil % 70.2 % [facility] Neutrophil Absolute 9.54(H) 1.70 - 6.10 x10(3)/ L [facility] Lymph % 20.7 % [facility] Lymphocytes Abs 2.8 0.9 - 3.2 x10(3)/ L [facility] Monocyte % 8.0 % [facility] Monocyte Abs 1.1(H) 0.3 - 0.9 x10(3)/[facility] Eos % 0.5 % [facility] Eosinophils Abs 0.1 0.0 - 0.4 x10(3)/[facility] Basophil % 0.3 % [facility] Baso Absolute 0.0 0.0 - 0.1 x10(3)/[facility] Immature Gran % 0.30 % [facility] Comment: Immature granulocytes(IG's)percentage and absolute count will include metamyelocytes, myelocytes, and promyelocytes. Blood smears from CBCs yielding IG's will be scanned manually for concordance. If this scan disagrees with the automated IG or if promyelocytes are noted, a manual differential will be performed. Immature Gran Absolute 0.04 0.00 - 0.04 x10(3)/ L [facility] Blood 09/29/2021 3:37 AM EDT 09/29/2021 4:14 AM EDT Narrative Resulting Agency Comment Spec In Lab Demian Whitehead MD [place] [address] * (ABNORMAL) Hemogram (09/29/2021 3:37 AM EDT) [facility] White Blood Cell 13.6(H) 4.0 - 9.5 x10(3)/ L [facility] Red Blood Cell 3.89(L) 4.00 - 5.21 x10(6)/mc L [facility] Hemoglobin 12.5 11.7 - 15.5 g/dL [facility] Hematocrit 36.4 35.7 - 45.8 % [facility] Mean Cell Volume 93.6 82.6 - 94.4 fL [facility] Mean Cell Hemoglobin 32.1(H) 27.1 - 32.0 pg [facility] Mean Cell Hemoglobin Concentration 34.3 31.7 - 35.0 g/dL [facility] Platelet 268 145 - 357 x10(3)/[facility] RDW Standard Deviation 41.5 37.0 - 46.0 [facility] RDW coefficient of variation 12.0 11.5 - 14.1 % [facility] Mean Platelet Volume 9.6 7.6 - 12.9 fL [facility] NRBC% auto 0.0 % [facility] NRBC Absolute 0.000 0.000 - 0.000 x10(3)/[facility] Blood 09/29/2021 3:37 AM EDT 09/29/2021 4:14 AM EDT Narrative Resulting Agency Comment Spec In Lab Demian Whitehead MD HEMATOLOGY ORDERABL ES [facility] [place] [address] * (ABNORMAL) Basic Metabolic Panel (non-fasting) (09/29/2021 3:37 AM EDT) [facility] Glucose 225(H) 65 - 199 mg/dL [facility] Comment:Diabetes: >=200 mg/d L plus symptoms Blood Urea Nitrogen 7(L) 8 - 18 mg/dL [facility] Creatinine 0.56(L) 0.70 - 1.20 mg/dL [facility] Sodium 137 135 - 145 mmol/L [facility] Potassium 4.6 3.5 - 5.0 mmol/L [facility] Comment: result rechecked- Please note: ??Patients with WBC >100,000 may have falsely elevated Potassium levels. ??For accurate Potassium quantification in these patients send serum separator tube (gold top) for subsequent determinations. ??Contact the Clinical Chemistry Laboratory if there are any questions. Chloride 101 98 - 107 mmol/L [facility] Carbon Dioxide 23 22 - 31 mmol/L [facility] Anion Gap 13 5 - 15 mmol/L [facility] Calcium 8.9 8.5 - 10.5 mg/dL [facility] Est Glomerular Filtration Rate 113 >=60 mL/min/1. 73 m?? [facility] Comment: This patient? s estimated glomerular filtration rate (eGFR) is between 113 mL/min/1.73 m2 (patients with less muscle mass) and 131 mL/min/1.73 m2 (patients with more muscle mass) as determined by the CKD-EPI equation. Assessment of eGFR is not appropriate when creatinine concentrations are rapidly changing. For clinical decisions where creatinine clearance will affect therapy, a 24-hour urine creatinine clearance may be advised. Assignment of CKD stage 1 - 5 for patients with an eGFR near the transition point between stages may be based on clinical assessment of muscle mass and symptoms in addition to eGFR. Blood 09/29/2021 3:37 AM EDT 09/29/2021 4:14 AM EDT Narrative Resulting Agency Comment Spec In Lab Madelaine Jenkins MD CHEMISTRY ORDERABLES [facility] [place] [address] * XR Humerus Right (Generic) (09/28/2021 10:00 PM EDT) Anatomical Region Laterality Modality Arm Right Digital Radiogra phy Impressions 09/28/2021 10:07 PM EDT FINDINGS/IMPRESSION: There has been interval placement of the lateral side plate and screw fixation of the previously seen mid diaphyseal fracture. No immediate postoperative complication. Expected postoperative changes are noted in the soft tissues. Thank you for letting us participate in the care of this patient. ??If you are a health care provider and have any questions regarding this report, please contact the number below. ??For patients who have questions please contact the health child care sitter that requested your imaging first. ? Electronically signed by: Maris Reyes MD, [facility] ([phone]), at 09/28/2021 10:07 PM Narrative 09/28/2021 10:07 PM EDT EXAMINATION: XR HUMERUS RIGHT (GENERIC) CLINICAL HISTORY: Right humerus fracture now s/p ORIF (uncomplicated). TECHNIQUE: 2 views RIGHT humerus COMPARISON: Radiograph dated 10/05/2021. Procedure Note Maris Reyes MD - 09/28/2021 EXAMINATION: XR HUMERUS RIGHT (GENERIC) CLINICAL HISTORY: Right humerus fracture now s/p ORIF (uncomplicated). TECHNIQUE: 2 views RIGHT humerus COMPARISON: Radiograph dated 10/05/2021. IMPRESSION FINDINGS/IMPRESSION: There has been interval placement of the lateral sideplate and screw fixation of the previously seen mid diaphyseal fracture. Noimmediate postoperative complication. Expected postoperative changes are noted inthe soft tissues. Thank you for letting us participate in the care of this patient. If youare a health care provider and have any questions regarding this report,please contact the number below. For patients who have questions please contactthe health child care sitter that requested your imaging first. Electronically signed by: Maris Reyes MD[facility]([phone]), at 09/28/2021 10:07 PM Madelaine Jenkins MD IMG DX ORDERABLES * XR Fluoro No Rad <1Hr - OR Use (09/28/2021 9:44 PM EDT) Narrative Dicom, Auditing User - 09/28/2021 9:45 PM EDT This exam is auto-finalizing. No interpretation was done. Madelaine Jenkins MD IMG FLUORO ORDERABLE S * POCT Glucose (09/28/2021 7:05 PM EDT) Glucose, POC 146 65 - 199 mg/dL [facility] Comment: Supplemental ranges: <140 mg/dL before meals <180 mg/dL all other times of the day Blood 09/28/2021 7:05 PM EDT 09/28/2021 7:05 PM EDT Madelaine Jenkins MD POINT OF CARE TEST O RDERANIYA Performing Organization Address [facility] [address]/ZIP Co de Phone Number [facility] [place] [address] * POCT Glucose (09/28/2021 3:44 PM EDT) Glucose, POC 183 65 - 199 mg/dL [facility] Comment: Supplemental ranges: <140 mg/dL before meals <180 mg/dL all other times of the day Blood 09/28/2021 3:44 PM EDT 09/28/2021 3:44 PM EDT Madelaine Jenkins MD POINT OF CARE TEST O RDERABLES [facility] [place] [address] * POCT Glucose (09/28/2021 11:21 AM EDT) Glucose, POC 174 65 - 199 mg/dL [facility] Comment: Supplemental ranges: <140 mg/dL before meals <180 mg/dL all other times of the day Blood 09/28/2021 11:2 1 AM EDT 09/28/2021 11:21 AM EDT Madelaine Jenkins MD POINT OF CARE TEST O RDERABLES Performing Organization Address City/[facility] [address]/ZIP Co de Phone Number [facility] [place] [address] * POCT Glucose (09/28/2021 5:42 AM EDT) [facility] Glucose, POC 91 65 - 199 mg/dL [facility] Comment: Supplemental ranges: <140 mg/dL before meals <180 mg/dL all other times of the day Blood 09/28/2021 5:42 AM EDT 09/28/2021 5:42 AM EDT Madelaine Jenkins MD POINT OF CARE TEST O RDERANIYA Performing Organization Address City/[facility] [address]/ZIP Co de Phone Number [facility] [place] [address] * (ABNORMAL) Differential, Automated (09/28/2021 3:34 AM EDT) [facility] Neutrophil % 47.8 % [facility] Neutrophil Absolute 5.29 1.70 - 6.10 x10(3)/mc L [facility] Lymph % 41.3 % [facility] Lymphocytes Abs 4.6(H) 0.9 - 3.2 x10(3)/mc L [facility] Monocyte % 8.8 % [facility] Monocyte Abs 1.0(H) 0.3 - 0.9 x10(3)/mc L [facility] Eos % 1.2 % [facility] Eosinophils Abs 0.1 0.0 - 0.4 x10(3)/mc L [facility] Basophil % 0.4 % [facility] Baso Absolute 0.0 0.0 - 0.1 x10(3)/mc L [facility] Immature Gran % 0.50 % [facility] Comment: Immature granulocytes(IG's)percentage and absolute count will include metamyelocytes, myelocytes, and promyelocytes. Blood smears from CBCs yielding IG's will be scanned manually for concordance. If this scan disagrees with the automated IG or if promyelocytes are noted, a manual differential will be performed. Immature Gran Absolute 0.05(H) 0.00 - 0.04 x10(3)/mc L [facility] Blood 09/28/2021 3:34 AM EDT 09/28/2021 3:57 AM EDT Narrative Resulting Agency Comment Spec In Lab Nathen Crystal MD HEMATOLOGY ORDERABLE S Performing Organization Address City/State/[facility] Co de Phone Number [facility] [place] [address] * (ABNORMAL) Hemogram (09/28/2021 3:34 AM EDT) White Blood Cell 11.0(H) 4.0 - 9.5 x10(3)/mc L [facility] Red Blood Cell 3.90(L) 4.00 - 5.21 x10(6)/mc L [facility] Hemoglobin 12.8 11.7 - 15.5 g/dL [facility] Hematocrit 37.3 35.7 - 45.8 % [facility] Mean Cell Volume 95.6(H) 82.6 - 94.4 fL [facility] Mean Cell Hemoglobin 32.8(H) 27.1 - 32.0 pg [facility] Mean Cell Hemoglobin Concentration 34.3 31.7 - 35.0 g/dL [facility] Platelet 260 145 - 357 x10(3)/mc L [facility] RDW Standard Deviation 42.8 37.0 - 46.0 fL [facility] RDW coefficient of variation 12.4 11.5 - 14.1 % [facility] Mean Platelet Volume 9.4 7.6 - 12.9 fL [facility] NRBC% auto 0.0 % [facility] NRBC Absolute 0.000 0.000 - 0.000 x10(3)/mc L [facility] Blood 09/28/2021 3:34 AM EDT 09/28/2021 3:57 AM EDT Narrative Resulting Agency Comment Spec In Lab Nathen Crystal MD HEMATOLOGY ORDERABLE S [facility] [place] [address] * (ABNORMAL) Basic Metabolic Panel (non-fasting) (09/28/2021 3:34 AM EDT) Glucose 111 65 - 199 mg/dL [facility] Comment:Diabetes: >=200 mg/d L plus symptoms Blood Urea Nitrogen 10 8 - 18 mg/dL [facility] Creatinine 0.51(L) 0.70 - 1.20 mg/dL [facility] Sodium 137 135 - 145 mmol/L [facility] Potassium 3.3(L) 3.5 - 5.0 mmol/L [facility] Comment: Please note: ??Patients with WBC >100,000 may have falsely elevated Potassium levels. ??For accurate Potassium quantification in these patients send serum separator tube (gold top) for subsequent determinations. ??Contact the Clinical Chemistry Laboratory if there are any questions. Chloride 105 98 - 107 mmol/L [facility] Carbon Dioxide 20(L) 22 - 31 mmol/L [facility] Anion Gap 12 5 - 15 mmol/L [facility] Calcium 8.9 8.5 - 10.5 mg/dL [facility] Est Glomerular Filtration Rate 117 >=60 mL/min/1. 73 m?? [facility] Comment: This patient? s estimated glomerular filtration rate (eGFR) is between 117 mL/min/1.73 m2 (patients with less muscle mass) and 136 mL/min/1.73 m2 (patients with more muscle mass) as determined by the CKD-EPI equation. Assessment of eGFR is not appropriate when creatinine concentrations are rapidly changing. For clinical decisions where creatinine clearance will affect therapy, a 24-hour urine creatinine clearance may be advised. Assignment of CKD stage 1 - 5 for patients with an eGFR near the transition point between stages may be based on clinical assessment of muscle mass and symptoms in addition to eGFR. Blood 09/28/2021 3:34 AM EDT 09/28/2021 3:57 AM EDT Narrative Resulting Agency Comment Spec In Lab Madelaine Jenkins MD CHEMISTRY ORDERABLES Performing Organization Address [facility] [address]/[facility] [facility] Co de Phone Number [facility] [place] [address] * (ABNORMAL) POCT Glucose (09/27/2021 11:47 PM EDT) Glucose, POC 230(H) 65 - 199 mg/dL [facility] Comment: Supplemental ranges: <140 mg/dL before meals <180 mg/dL all other times of the day Blood 09/27/2021 11:4 7 PM EDT 09/27/2021 11:47 PM EDT Madelaine Jenkins MD POINT OF CARE TEST O RDERABLES Performing Organization Address [facility] [address] [facility] Co de Phone Number [facility] [place] [address] * (ABNORMAL) POCT Glucose (09/27/2021 7:58 PM EDT) Glucose, POC 260(H) 65 - 199 mg/dL [facility] Comment: Supplemental ranges: <140 mg/dL before meals <180 mg/dL all other times of the day Blood 09/27/2021 7:58 PM EDT 09/27/2021 7:58 PM EDT Madelaine Jenkins MD POINT OF CARE TEST O RDERABLES Performing Organization Address City/[facility] [address]/ZIP Co de Phone Number [facility] [place] [address] * POCT Glucose (09/27/2021 2:39 PM EDT) [facility] Glucose, POC 125 65 - 199 mg/dL [facility] Comment: Supplemental ranges: <140 mg/dL before meals <180 mg/dL all other times of the day Blood 09/27/2021 2:39 PM EDT 09/27/2021 2:39 PM EDT Madelaine Jenkins MD POINT OF CARE TEST O KRZYSZTOF Performing Organization Address [facility] [address]/[facility] Co de Phone Number [facility] [place] [address] * (ABNORMAL) Hemoglobin A1c (09/27/2021 12:27 PM EDT) [facility] Hemoglobin A1c 11.9(H) 4.3 - 5.6 % [facility] Comment: Reference Range: 4.3 - [...] 36: Suppl. 1, S67-74 Estimated Average Glucose 295 mg/dL [facility] Comment: eAG equivalents for HbA1c [...] into estimated average glucose values. ??Diabetes Care 2008:31(8):4272-8298. Blood 09/27/2021 12:2 7 PM EDT 09/27/2021 12:31 PM EDT Narrative Resulting Agency Comment Spec In Lab Madelaine Jenkins MD CHEMISTRY ORDERABLES Performing Organization Address [facility] [address]/[facility] Co de Phone Number [facility] [place] [address] * POCT Glucose (09/27/2021 11:29 AM EDT) Glucose, POC 147 65 - 199 mg/dL [facility] Comment: Supplemental ranges: <140 mg/dL before meals <180 mg/dL all other times of the day Blood 09/27/2021 11:2 9 AM EDT 09/27/2021 11:29 AM EDT Madelaine Jenkins MD POINT OF CARE TEST O RDERABLES Performing Organization Address [facility] [address]/[facility] de Phone Number [facility] [place] [address] * XR Humerus Right (Generic) (09/27/2021 9:09 AM EDT) Anatomical Region Laterality Modality Arm Right Digital Radiogra phy Impressions 09/27/2021 11:19 AM EDT FINDINGS/IMPRESSION: There is apex-posterior angulated fracture of the mid humeral shaft. Stranding of the subcutaneous fat of the upper arm is noted. Small marginal osteophytes of the acromioclavicular joint is consistent with mild acromioclavicular osteoarthropathy. Thank you for letting us participate in the care of this patient. ??If you are a health care provider and have any questions regarding this report, please contact the number below. ??For patients who have questions please contact the health child care sitter that requested your imaging first. ? Electronically signed by: Wanda Mcnamara MD, [facility] ([phone]), at 09/27/2021 11:19 AM Narrative 09/27/2021 11:19 AM EDT EXAMINATION: XR HUMERUS RIGHT (GENERIC) CLINICAL HISTORY: fracture evaluation (as entered by ordering provider in the order requisition) TECHNIQUE: 2 lateral views of the right humerus with the shoulder in internal rotation and external rotation. COMPARISON: None Procedure Note Wanda Mcnamara MD - 09/27/2021 EXAMINATION: XR HUMERUS RIGHT (GENERIC) CLINICAL HISTORY: fracture evaluation (as entered by ordering provider inthe order requisition) TECHNIQUE: 2 lateral views of the right humerus with the shoulder in internalrotation and external rotation. COMPARISON: None IMPRESSION FINDINGS/IMPRESSION: There is apex-posterior angulated fracture of the mid humeral shaft. Stranding of the subcutaneous fat of the upper arm is noted. Small marginal osteophytes of the acromioclavicular joint is consistentwith mild acromioclavicular osteoarthropathy. Thank you for letting us participate in the care of this patient. If youare a health care provider and have any questions regarding this report,please contact the number below. For patients who have questions please contactthe health child care sitter that requested your imaging first. Electronically signed by: Wanda Mcnamara MD, [facility]([phone]), at 09/27/2021 11:19 AM Madelaine Jenkins MD IMG DX ORDERABLES * POCT Glucose (09/27/2021 7:30 AM EDT) Glucose, POC 114 65 - 199 mg/dL [facility] Comment: Supplemental ranges: <140 mg/dL before meals <180 mg/dL all other times of the day Blood 09/27/2021 7:30 AM EDT 09/27/2021 7:30 AM EDT Madelaine Jenkins MD POINT OF CARE TEST O RDERABLES Performing Organization Address City/[facility] [address]/ZIP Co de Phone Number [facility] [place] [address] * POCT Glucose (09/27/2021 6:48 AM EDT) Glucose, POC 128 65 - 199 mg/dL [facility] Comment: Supplemental ranges: <140 mg/dL before meals <180 mg/dL all other times of the day Blood 09/27/2021 6:48 AM EDT 09/27/2021 6:48 AM EDT Madelaine Jenkins MD POINT OF CARE TEST O RDERABLES [facility] [place] [address] * POCT Glucose (09/27/2021 3:24 AM EDT) Glucose, POC 139 65 - 199 mg/dL [facility] Comment: Supplemental ranges: <140 mg/dL before meals <180 mg/dL all other times of the day Blood 09/27/2021 3:24 AM EDT 09/27/2021 3:24 AM EDT Madelaine Jenkins MD POINT OF CARE TEST O RDERABLES Performing Organization Address City/[facility] [address]/ZIP Co de Phone Number [facility] [place] [address] * Type and Screen Validity (09/27/2021 3:23 AM EDT) T&S only valid at [facility] Comment:This Type and Screen result is only valid at the [facility] Blood 09/27/2021 3:23 AM EDT 09/27/2021 4:08 AM EDT Narrative Resulting Agency Comment Spec In Lab Nathen Crystal MD BLOOD BANK LAB ORDER YOON Performing Organization Address [facility] [address]/ZIP Co de Phone Number [facility] [place] [address] * Scan, Peripheral Blood (09/27/2021 3:23 AM EDT) Plat estimate Normal [facility] RBC Morphology Abnormal [facility] Ovalocytes 1-5 /HPF [facility] Blood 09/27/2021 3:23 AM EDT 09/27/2021 4:00 AM EDT Narrative Resulting Agency Comment Spec In Lab Nathen Crystal MD HEMATOLOGY ORDERABLE S Performing Organization Address City/[facility] [address]/ZIP Co de Phone Number [facility] [place] [address] * ABORH Recheck Status (09/27/2021 3:23 AM EDT) ABORH Recheck Order Order Placed [facility] ABORH Type Recheck Complete [facility] Blood 09/27/2021 3:23 AM EDT 09/27/2021 4:08 AM EDT Narrative Resulting Agency Comment Spec In Lab Nathen Crystal MD BLOOD BANK LAB ORDER YOON Performing Organization Address City/[facility] [address]/ZIP Co de Phone Number [facility] [place] [address] * Antibody screen (09/27/2021 3:23 AM EDT) Ab Screen Interp Negative [facility] Expires at [id number] on: 09/30/2021 [facility] Blood 09/27/2021 3:23 AM EDT 09/27/2021 4:08 AM EDT Narrative Resulting Agency Comment Spec In Lab Nathen Crystal MD BLOOD BANK LAB ORDER YOON Performing Organization Address City/[facility] [address]/ZIP Co de Phone Number [facility] [place] [address] * ABO/Rh Typing (09/27/2021 3:23 AM EDT) Pathologist [facility] ABORH Type A Neg [facility] Blood 09/27/2021 3:23 AM EDT 09/27/2021 4:08 AM EDT Narrative Resulting Agency Comment Spec In Lab Nathen Crystal MD BLOOD BANK LAB ORDER YOON Performing Organization Address City/[facility] [address]/[facility] Co de Phone Number [facility] [place] [address] * (ABNORMAL) Differential, Automated (09/27/2021 3:23 AM EDT) Neutrophil % 49.7 % [facility] Neutrophil Absolute 5.50 1.70 - 6.10 x10(3)/mc L [facility] Lymph % 40.5 % [facility] Lymphocytes Abs 4.5(H) 0.9 - 3.2 x10(3)/mc L [facility] Monocyte % 7.5 % [facility] Monocyte Abs 0.8 0.3 - 0.9 x10(3)/mc L [facility] Eos % 1.3 % [facility] Eosinophils Abs 0.1 0.0 - 0.4 x10(3)/[facility] Basophil % 0.5 % [facility] Baso Absolute 0.1 0.0 - 0.1 x10(3)/[facility] Immature Gran % 0.50 % [facility] Comment: Immature granulocytes(IG's)percentage and absolute count will include metamyelocytes, myelocytes, and promyelocytes. Blood smears from CBCs yielding IG's will be scanned manually for concordance. If this scan disagrees with the automated IG or if promyelocytes are noted, a manual differential will be performed. Immature Gran Absolute 0.06(H) 0.00 - 0.04 x10(3)/[facility] Blood 09/27/2021 3:23 AM EDT 09/27/2021 4:00 AM EDT Narrative Resulting Agency Comment Spec In Lab Nathen Crystal MD HEMATOLOGY ORDERABLE S [facility] [place] [address] * (ABNORMAL) Hemogram (09/27/2021 3:23 AM EDT) White Blood Cell 11.1(H) 4.0 - 9.5 x10(3)/[facility] Red Blood Cell 4.24 4.00 - 5.21 x10(6)/[facility] Hemoglobin 13.4 11.7 - 15.5 g/dL [facility] Hematocrit 39.5 35.7 - 45.8 % [facility] Mean Cell Volume 93.2 82.6 - 94.4 fL [facility] Mean Cell Hemoglobin 31.6 27.1 - 32.0 pg [facility] Mean Cell Hemoglobin Concentration 33.9 31.7 - 35.0 g/dL [facility] Platelet 275 145 - 357 x10(3)/ L [facility] RDW Standard Deviation 42.5 37.0 - 46.0 [facility] RDW coefficient of variation 12.3 11.5 - 14.1 % [facility] Mean Platelet Volume 9.7 7.6 - 12.9 [facility] NRBC% auto 0.0 % [facility] NRBC Absolute 0.000 0.000 - 0.000 x10(3)/ L [facility] Blood 09/27/2021 3:23 AM EDT 09/27/2021 4:00 AM EDT Narrative Resulting Agency Comment Spec In Lab Nathen Crystal MD HEMATOLOGY ORDERABLE S Performing Organization Address City/[facility] [address]/ZIP Co de Phone Number [facility] [place] [address] * APTT (09/27/2021 3:23 AM EDT) Partial Thromboplastin Time 27 25 - 37 sec [facility] Comment: The PTT is NOT appropriate for heparin monitoring. Use the Anti-Xa level for heparin monitoring (HEP UFH) or LMWH monitoring (HEP LMW). A PTT less than 37 seconds generally indicates adequate hemostasis. Blood 09/27/2021 3:23 AM EDT 09/27/2021 4:00 AM EDT Narrative Resulting Agency Comment Spec In Lab Madelaine Jenkins MD HEMATOLOGY ORDERABLE S [facility] [place] [address] * Prothrombin Time (09/27/2021 3:23 AM EDT) Prothrombin Time 10.6 9.4 - 12.5 sec [facility] International Normalization Ratio 0.9 [facility] Comment: An INR <2.0 indicates adequate procoagulant activity for hemostasis in most patients without underlying bleeding disorders, though the INR may not adequately reflect hemostatic capacity in patients with liver disease and synthetic impairment. The recommended target INR range for therapeutic anticoagulation is 2.0 ? 3.0 for most applications, though lower and higher ranges may be appropriate depending on clinical circumstances. Blood 09/27/2021 3:23 AM EDT 09/27/2021 4:00 AM EDT Narrative Resulting Agency Comment Spec In Lab Madelaine Jenkins MD HEMATOLOGY ORDERABLE S [facility] [place] [address] * (ABNORMAL) Basic Metabolic Panel (non-fasting) (09/27/2021 3:23 AM EDT) Glucose 138 65 - 199 mg/dL [facility] Comment:Diabetes: >=200 mg/d L plus symptoms Blood Urea Nitrogen 10 8 - 18 mg/dL [facility] Creatinine 0.50(L) 0.70 - 1.20 mg/dL [facility] Sodium 139 135 - 145 mmol/L [facility] Potassium 3.8 3.5 - 5.0 mmol/L [facility] Comment: Please note: ??Patients with WBC >100,000 may have falsely elevated Potassium levels. ??For accurate Potassium quantification in these patients send serum separator tube (gold top) for subsequent determinations. ??Contact the Clinical Chemistry Laboratory if there are any questions. Chloride 107 98 - 107 mmol/L [facility] Carbon Dioxide 20(L) 22 - 31 mmol/L [facility] Anion Gap 12 5 - 15 mmol/L [facility] Calcium 8.9 8.5 - 10.5 mg/dL [facility] Est Glomerular Filtration Rate 118 >=60 mL/min/1. 73 m?? [facility] Comment: This patient? s estimated glomerular filtration rate (eGFR) is between 118 mL/min/1.73 m2 (patients with less muscle mass) and 136 mL/min/1.73 m2 (patients with more muscle mass) as determined by the CKD-EPI equation. Assessment of eGFR is not appropriate when creatinine concentrations are rapidly changing. For clinical decisions where creatinine clearance will affect therapy, a 24-hour urine creatinine clearance may be advised. Assignment of CKD stage 1 - 5 for patients with an eGFR near the transition point between stages may be based on clinical assessment of muscle mass and symptoms in addition to eGFR. Blood 09/27/2021 3:23 AM EDT 09/27/2021 4:00 AM EDT Narrative Resulting Agency Comment Spec In Lab Madelaine Jenkins MD CHEMISTRY ORDERABLES Performing Organization Address [facility] [address]/[facility] Co de Phone Number [facility] [place] [address] * (ABNORMAL) POCT Glucose (09/26/2021 7:45 PM EDT) [facility] Glucose, POC 223(H) 65 - 199 mg/dL [facility] Comment: Supplemental ranges: <140 mg/dL before meals <180 mg/dL all other times of the day Blood 09/26/2021 7:45 PM EDT 09/26/2021 7:45 PM EDT Madelaine Jenkins MD POINT OF CARE TEST O RDERABLES Performing Organization Address [facility] [address]/[facility] Co de Phone Number [facility] [place] [address] * COVID-19 PCR (09/26/2021 5:10 PM EDT) [facility] SARS-CoV-2 RNA (Rapid) Not Detected Not Detected [facility] Comment: This result should be interpreted in combination with the clinical observations, patient history and epidemiological information. For testing of asymptomatic individuals, assay performance characteristics and clinical utility have not been evaluated. Testing for SARS-CoV-2 (Severe acute respiratory syndrome coronavirus 2, formerly known as 2019 novel coronavirus or 2019-nCoV) to aid in the diagnosis of COVID-19 is performed using the Simplexa COVID-19 Direct Assay by [employer] as authorized by the FDA issued Emergency Use Authorization (EUA). This assay is intended for In-vitro Diagnostic (IVD) use with nasopharyngeal swabs collected from individuals meeting the CDC criteria for testing. The assay is performed based on the instructions for use and additional guidance provided by the FDA. Testing is performed in the Microbiology Laboratory within the Department of Pathology and Laboratory Medicine at [facility], certified under the Clinical Laboratory Improvement Amendments of 1988 (CLIA), 42 U.S.C. section 263a, to perform high complexity tests. Assay performance has been verified according to clinical laboratory regulatory requirements. Test results are provided above. A result of Not Detected indicates that the viral RNA target is not present but does not preclude SARS-CoV-2 infection. False negative results may occur if a specimen is improperly collected, transported or handled; if amplification inhibitors are present; or if inadequate numbers of viral particles are present in the specimen. A result of Detected suggests a current or recent infection and the patient is presumed to be infected. Positive and negative predictive values for this test are highly dependent on disease prevalence. A result of Invalid indicates the inability to conclusively determine the presence or absence of SARS-CoV-2 RNA in the sample which can be due to a variety of factors. Recollection is recommended in the case of an invalid result. CDC COVID-19 criteria for testing on human specimens and clinical management guidance information are available at the CDC Coronavirus Disease 2019 (COVID-19) webpage under Information for Healthcare Professionals (https://www.cdc.gov/coronavirus/2019-ncov/hcp/index.html). Additional information about this and other EUA tests can be found in provider and patient fact sheets at the following FDA website: https://www.fda.gov/medical-devices/irxztvsxpsu-kynmjiu-8013-dahpt-85-lnjdkbhgt- use-a bnkunlywqcxvy-jeuwryu-ahofxzl/eobpl-vjvbjwfaqkz-jcze SARS-CoV-2 Source [employer] Swab [facility] Nasopharyngeal Swab 09/27/19 5:10 PM EDT 09/26/2021 7:19 PM EDT Comment:Symptoms->Surveillan ce Narrative Resulting Agency Comment Spec In Lab Madelaine Jenkins MD MICROBIOLOGY - [place] [address] documented in this encounter Visit Diagnoses Diagnosis s/p ORIF R diaphyseal humerus fracture 09/28/21 (Dr Giron)- Primary Closed fracture of unspecified part of humerus Adult BMI 40.0-44.9 kg/sq m Body Mass Index 40.0-44.9, adult Type 2 diabetes mellitus Type II or unspecified type diabetes mellitus without mention of complication, not stated as uncontrolled documented in this encounter Admitting Diagnoses Diagnosis Humerus fracture Closed fracture of unspecified part of humerus documented in this encounter Administered Medications Inactive Administered Medications - up to 3 most recent administrations Medication Order MAR Action Action Date Dose Rate Site acetaminophen (Tylenol) tablet 1,000 mg 1,000 mg, Oral, EVERY 6 HOURS SCHEDULED, First dose on Sat09/26/21 at 2000, Until Discontinued, Maximum dose of acetaminophen is 4000 mg from all sources in 24 hours. When ordered for pain, acetaminophen should be given even when other ordered pain medications are indicated. , Routine Given 09/29/2021 12:00 PM EDT 1,000 mg Given 09/29/2021 5:23 AM EDT 1,000 mg Given 09/28/2021 11:02 PM EDT 1,000 mg amLODIPine (Norvasc) tablet 10 mg 10 mg, Oral, DAILY, First dose on Sat09/27/21 at 0900, Until Discontinued, Routine Given 09/29/2021 8:23 AM EDT 10 mg Given 09/28/2021 8:09 AM EDT 10 mg Given 09/27/2021 8:16 AM EDT 10 mg busPIRone (Buspar) tablet 10 mg 10 mg, Oral, DAILY, First dose on Sat09/27/21 at 0900, Until Discontinued, Routine Given 09/28/2021 8:08 AM EDT 10 mg Given 09/27/2021 8:15 AM EDT 10 mg busPIRone (Buspar) tablet 10 mg 10 mg, Oral, 3 TIMES DAILY, First dose (after last modification) on Sat09/28/21 at 1500, Until Discontinued, Routine Given 09/29/2021 8:23 AM EDT 10 mg Given 09/28/2021 10:49 PM EDT 10 mg Given 09/28/2021 2:07 PM EDT 10 mg clonazePAM (KlonoPIN) tablet 1 mg 1 mg, Oral, NIGHTLY, First dose on Sat09/26/21 at 2100, Until Discontinued, DO NOT SPLIT, CRUSH OR OPEN, Routine Given 09/28/2021 10:51 PM EDT 1 mg Given 09/27/2021 8:28 PM EDT 1 mg Given 09/26/2021 8:10 PM EDT 1 mg cloNIDine (Catapres) tablet 0.2 mg 0.2 mg, Oral, DAILY, First dose on Sat09/26/21 at 2000, Until Discontinued, Routine Given 09/29/2021 8:23 AM EDT 0.2 mg Given 09/28/2021 8:09 AM EDT 0.2 mg Given 09/27/2021 8:16 AM EDT 0.2 mg cyclobenzaprine (Flexeril) tablet 5 mg 5 mg, Oral, 3 TIMES DAILY PRN, Starting on Sat09/26/21 at 1905, Until Sat09/29/21 at 1826, Muscle spasms, Routine Given 09/29/2021 10:22 AM EDT 5 mg Given 09/28/2021 10:48 PM EDT 5 mg Given 09/28/2021 5:12 PM EDT 5 mg dextrose 10% infusion 250 mL, at 1,000 mL/hr, Intravenous, EVERY 30 MIN PRN, Starting on Sat09/29/21 at 0843, Until Sat09/29/21 at 1826, For BG 50-70 mg/dL: Oral treatment preferred: If able to drink, give 120 mL Juice or Regular (not diet) soda OR If NPO, give 15 gram glucose 40% oral gel massaged into buccal mucosa OR if unconscious or uncooperative, give 25 gram (250 mL) Dextrose 10% IV over 15 minutes per protocol OR, if no IV access, 1 mg Glucagon IM. For BG less than 50 mg/dL: Oral treatment preferred: If able to drink, give 240 mL Juice or Regular (not diet) soda OR If NPO, give 30 gram glucose 40% oral gel massaged in buccal mucosa OR if unconscious or uncooperative, give 25 gram (250 mL) Dextrose 10% IV over 15 minutes per protocol OR, if no IV access, 1 mg Glucagon IM. Recheck BG in 30 minutes. May repeat juice/soda, gel, dextrose or glucagon once per episode. For persistent hypoglycemia, consider longer-acting treatment for the duration of the active insulin. docusate sodium (Colace) capsule 100 mg 100 mg, Oral, 2 TIMES DAILY, First dose on Sat09/26/21 at 2100, Until Discontinued, Routine Given 09/28/2021 8:09 AM EDT 100 mg Given 09/27/2021 8:28 PM EDT 100 mg enoxaparin (Lovenox) (40 mg/0.4 mL) subcutaneous injection 40 mg 40 mg, Subcutaneous, NIGHTLY, First dose on Sat09/26/21 at 2100, Until Discontinued, Routine Given 09/28/2021 10:48 PM EDT 40 mg Given 09/27/2021 8:30 PM EDT 40 mg Given 09/26/2021 8:11 PM EDT 40 mg famotidine (Pepcid) tablet 20 mg 20 mg, Oral, DAILY, First dose on Sat09/26/21 at 2000, Until Discontinued Given 09/29/2021 8:23 AM EDT 20 mg Given 09/28/2021 8:09 AM EDT 20 mg Given 09/27/2021 8:16 AM EDT 20 mg gabapentin (Neurontin) capsule 800 mg 800 mg, Oral, 3 TIMES DAILY, First dose on Sat09/26/21 at 2100, Until Discontinued, Routine Given 09/29/2021 8:23 AM EDT 800 mg Given 09/28/2021 10:50 PM EDT 800 mg Given 09/28/2021 2:00 PM EDT 800 mg glucagon (Glucagen) (1 mg/mL) injection solution 1 mg 1 mg, Intramuscular, EVERY 30 MIN PRN, Starting on Sat09/29/21 at 0843, Until Sat09/29/21 at 1826, Low blood sugar, For BG 50-70 mg/dL: Oral treatment preferred: If able to drink, give 120 mL Juice or Regular (not diet) soda OR If NPO, give 15 gram glucose 40% oral gel massaged into buccal mucosa OR if unconscious or uncooperative, give 25 gram (250 mL) Dextrose 10% IV over 15 minutes per protocol OR, if no IV access, 1 mg Glucagon IM. For BG less than 50 mg/dL: Oral treatment preferred: If able to drink, give 240 mL Juice or Regular (not diet) soda OR If NPO, give 30 gram glucose 40% oral gel massaged in buccal mucosa OR if unconscious or uncooperative, give 25 gram (250 mL) Dextrose 10% IV over 15 minutes per protocol OR, if no IV access, 1 mg Glucagon IM. Recheck BG in 30 minutes. May repeat juice/soda, gel, dextrose or glucagon once per episode. For persistent hypoglycemia, consider longer-acting treatment for the duration of the active insulin., Routine glucose (Glutose) 40% oral geL 15-30 g of glucose, Buccal, EVERY 30 MIN PRN, Starting on Sat09/29/21 at 0843, Until Sat09/29/21 at 1826, Low blood sugar, For BG 50-70 mg/dL: Oral treatment preferred: If able to drink, give 120 mL Juice or Regular (not diet) soda OR If NPO, give 15 gram glucose 40% oral gel massaged into buccal mucosa OR if unconscious or uncooperative, give 25 gram (250 mL) Dextrose 10% IV over 15 minutes per protocol OR, if no IV access, 1 mg Glucagon IM. For BG less than 50 mg/dL: Oral treatment preferred: If able to drink, give 240 mL Juice or Regular (not diet) soda OR If NPO, give 30 gram glucose 40% oral gel massaged in buccal mucosa OR if unconscious or uncooperative, give 25 gram (250 mL) Dextrose 10% IV over 15 minutes per protocol OR, if no IV access, 1 mg Glucagon IM. Recheck BG in 30 minutes. May repeat juice/soda, gel, dextrose or glucagon once per episode. For persistent hypoglycemia, consider longer-acting treatment for the duration of the active insulin. 1 tube of Glutose-15 contains 15 grams of glucose (net weight of tube = 37.5 grams.), Routine HYDROmorphone (Dilaudid) (2 mg/mL) multi-dose injection solution 0.4 mg 0.4 mg, Intravenous, EVERY 10 MIN PRN, Starting on Edwina 09/28/21 at 1948, Until Edwina 09/28/21 at 2220, Pain, For Moderate to Severe Pain (6-10 out of 10), Hold for respiratory rate less than 10 per minute. Maximum dose 3 mg over one hour including administrations in the OR. If multiple pain medications are ordered, start with HYDROmorphone or morphine and use fentaNYL for breakthrough pain, PACU Recovery, Routine Given 09/28/2021 9:20 PM EDT 0.4 mg Given 09/28/2021 8:57 PM EDT 0.4 mg insulin glargine-ygfn (Semglee) (100 unit/mL) subcutaneous injection vial 10 Units 10 Units, Subcutaneous, ONCE, 1 dose, On Sat09/29/21 at 1000, Routine Given 09/29/2021 10:15 AM EDT 10 Units insulin glargine-ygfn (Semglee) (100 unit/mL) subcutaneous injection vial 25 Units 25 Units, Subcutaneous, ONCE, 1 dose, On Sat09/27/21 at 1330, Routine Given 09/27/2021 2:46 PM EDT 25 Units insulin glargine-ygfn (Semglee) (100 unit/mL) subcutaneous injection vial 25 Units 25 Units, Subcutaneous, DAILY, First dose (after last modification) on Sat09/28/21 at 1400, Until Discontinued, Please check blood sugar prior to administration and hold if blood sugar is less than 90, Routine Given 09/29/2021 8:29 AM EDT 25 Units Given 09/28/2021 2:00 PM EDT 25 Units insulin glargine-ygfn (Semglee) (100 unit/mL) subcutaneous injection vial 40 Units 40 Units, Subcutaneous, DAILY, First dose (after last modification) on Sat09/30/21 at 0900, Until Discontinued, Please check blood sugar prior to administration and hold if blood sugar is less than 90, Routine insulin lispro (HumaLOG;Admelog) (100 unit/mL) subcutaneous injection vial 1-6 Units 1-6 Units, Subcutaneous, 3 TIMES DAILY BEFORE MEALS, First dose on Sat09/28/21 at 1130, Until Discontinued, CORRECTION BOLUS [1-6 Units] Moderate Sliding Scale (BG in mg/dL): Correction factor 20 (1 unit of insulin is expected to drop the glucose 20 mg/dL) BG 140 - 160 Give 1 unit BG 161 - 180 Give 2 units BG 181 - 200 Give 3 units BG 201 - 220 Give 4 units BG 221 - 240 Give 5 units BG greater than 240, give 6 units and recheck BG in 2 hours. - If recheck BG is LESS than 240, give no insulin and resume schedule. - If recheck BG is GREATER than 240, give 6 units and repeat BG in 2 hours (no more than 3 times) & call for new insulin orders. DO NOT hold if NPO, unless specifically directed to do so by written order. Per Blood Glucose Monitoring Policy, re-check a BG of > 240 mg/dL in 2 hours., Routine Given 09/29/2021 12:00 PM EDT 5 Units Given 09/29/2021 6:40 AM EDT 6 Units Given 09/28/2021 5:08 PM EDT 3 Units INSULIN PUMP (PATIENT OWN) Subcutaneous, ONCE PRN, Other, This is Placeholder Medication., Starting on Sat09/27/21 at 1257, 1 dose, Until Sat09/29/21 at 1826, Patient to administer per own pump. Before discontinuing the pump, obtain an order and administer subcutaneous basal insulin. Document bolus doses, as reported by patient, in the Doc Flowsheet, under POC Glucose Comments (Insulin Pump Bolus (Units))., Medication Name: lispro (Humalog) labetaloL (Normodyne) tablet 200 mg 200 mg, Oral, 2 TIMES DAILY, First dose on Sat09/26/21 at 2100, Until Discontinued, Routine Given 09/29/2021 8:24 AM EDT 200 mg Given 09/28/2021 10:52 PM EDT 200 mg Given 09/28/2021 8:09 AM EDT 200 mg lidocaine (Xylocaine) 1% (10 mg/mL) injection 3 mg 3 mg (0.3 mL), Subcutaneous, ONCE PRN, 1 dose, Starting on Sat09/26/21 at 1908, Until Sat09/29/21 at 1826, for discomfort with PIV insertion, Routine melatonin tablet 3 mg 3 mg, Oral, NIGHTLY PRN, Starting on Sat09/26/21 at 1910, Until Sat09/29/21 at 1826, Sleep, Routine Given 09/27/2021 8:29 PM EDT 3 mg metFORMIN (Glucophage) tablet 1,000 mg 1,000 mg, Oral, 2 TIMES DAILY WITH MEALS, First dose on Sat09/29/21 at 0845, Until Discontinued, Routine Given 09/29/2021 8:23 AM EDT 1,000 mg nicotine (Nicoderm CQ) 14 mg/24 hr patch 14 mg 14 mg (1 patch), Transdermal, Administer over 24 Hours, DAILY, First dose on Sat09/26/21 at 1945, Until Discontinued, Apply new patch to nonhairy, clean, dry skin on the upper body or upper outer arm; each patch should be applied to a different site , Routine Given 09/29/2021 10:15 AM EDT 14 mg 03- Shoulder (Left) Given 09/28/2021 8:14 AM EDT 14 mg 04 - Shoulder (Right) Given 09/27/2021 8:18 AM EDT 14 mg 04 - Shoulder (Right) nicotine (NICODERM CQ) 14 mg/24 hr patch Patch Removal Transdermal, DAILY, First dose on Sat09/27/21 at 0900, Until Discontinued, Remove nicotine 14 mg/24 hr patch nicotine (NICODERM CQ) 14 mg/24 hr patch Patch Verification Transdermal, 2 TIMES DAILY, First dose on Sat09/27/21 at 0700, Until Discontinued, Verify nicotine 14 mg/24 hr patch. oxyCODONE (Roxicodone) tablet 10-15 mg 10-15 mg, Oral, EVERY 4 HOURS PRN, Starting on Sat09/26/21 at 1905, Until Sat09/29/21 at 1826, Pain, severe pain (7-10), Initial dose 10mg. If pain control not adequate in 60 minutes, give additional 5mg, Routine Given 09/29/2021 8:24 AM EDT 10 mg Given 09/29/2021 12:55 AM EDT 10 mg Given 09/28/2021 8:50 PM EDT 15 mg oxyCODONE (Roxicodone) tablet 5-10 mg 5-10 mg, Oral, EVERY 4 HOURS PRN, Starting on Sat09/26/21 at 1905, Until Sat09/29/21 at 1826, Pain, moderate pain (4-6), Initial dose 5mg. If pain control not adequate in 60 minutes, give additional 5mg, Routine Given 09/29/2021 2:33 AM EDT 5 mg QUEtiapine (SEROquel) tablet 400 mg 400 mg, Oral, DAILY, First dose on Sat09/26/21 at 2000, Until Discontinued, Routine Given 09/27/2021 8:14 AM EDT 400 mg Given 09/26/2021 8:10 PM EDT 400 mg QUEtiapine (SEROquel) tablet 400 mg 400 mg, Oral, NIGHTLY, First dose (after last modification) on Edwina 09/28/21 at 0015, Until Discontinued, Routine Given 09/28/2021 10:49 PM EDT 400 mg Given 09/27/2021 11:30 PM EDT 400 mg rosuvastatin (Crestor) tablet 20 mg 20 mg, Oral, EVERY EVENING, First dose on Sat09/26/21 at 2000, Until Discontinued, Routine Given 09/28/2021 5:08 PM EDT 20 mg Given 09/27/2021 5:55 PM EDT 20 mg Given 09/26/2021 8:09 PM EDT 20 mg senna-docusate (Pericolace) 8.6-50 mg per tablet 2 tablet 2 tablet, Oral, 2 TIMES DAILY, First dose on Sat09/26/21 at 2100, Until Discontinued, Routine Given 09/28/2021 8:08 AM EDT 2 tablets sodium chloride 0.9 % (flush) (BD PosiFlush Normal Saline 0.9) flush 5 mL 5 mL, Intravenous, 2 TIMES DAILY, First dose on Sat09/26/21 at 2100, Until Discontinued, Routine Given 09/29/2021 8:27 AM EDT 5 mLs Given 09/28/2021 10:53 PM EDT 5 mLs Given 09/28/2021 8:12 AM EDT 5 mLs sodium chloride 0.9 % (flush) (BD PosiFlush Normal Saline 0.9) flush 5-20 mL 5-20 mL, Intravenous, EVERY 1 MIN PRN, Starting on Sat09/26/21 at 1908, Until Sat09/29/21 at 1826, flush, Flush pertains to all indwelling lines. Flush per protocol found in the job aid using the link provided on this medication record., Routine documented in this encounter Active and Recently Administered Medications Times are shown in EDT. Scheduled Medication Order 09/27/2021 09/28/2021 09/29/2021 acetaminophen (Tylenol) tablet 1,000 mg 1,000 mg, Oral, EVERY 6 HOURS SCHEDULED, First dose on Sat09/26/21 at 2000, Until Discontinued, Maximum dose of acetaminophen is 4000 mg from all sources in 24 hours. When ordered for pain, acetaminophen should be given even when other ordered pain medications are indicated. , Routine 0005 (Given - Provider: Zuly Tam RN)0617 (Given - Provider: Zuly Tam RN)1135 (Given - Provider: Arlene Feldman LPN)1754 (Given - Provider: Arlene Feldman LPN)2331 (Given - Provider: Tom Fernandez, PRISCILA) 0553 (Given - Provider: Tom Fernandez, RN)1139 (Given - Provider: Wanda Wolfe RN)1708 (Given - Provider: Wanda Wolfe RN)1739 (MAR Hold - Provider: Admin Adt - Reason: Transfer to a Procedural area)2044 (MAR Unhold - Provider: Yancy Maria RN)2302 (Given - Provider: Megan Bansal RN) 0523 (Given - Provider: Megan Bansal RN)1200 (Given - Provider: Wanda Wolfe RN) amLODIPine (Norvasc) tablet 10 mg 10 mg, Oral, DAILY, First dose on Sat09/27/21 at 0900, Until Discontinued, Routine 0816 (Given - Provider: Arlene Feldman LPN) 0809 (Given - Provider: Wanda Wolfe RN)1739 (MAR Hold - Provider: Admin Adt - Reason: Transfer to a Procedural area)2231 (MAR Unhold - Provider: Admin Adt) 0823 (Given - Provider: Wanda Wolfe RN) busPIRone (Buspar) tablet 10 mg (CANCELED) 10 mg, Oral, DAILY, First dose on Sat09/27/21 at 0900, Until Discontinued, Routine 0815 (Given - Provider: Arlene Feldman LPN) 0808 (Given - Provider: Wanda Wolfe RN) busPIRone (Buspar) tablet 10 mg 10 mg, Oral, 3 TIMES DAILY, First dose (after last modification) on Sat09/28/21 at 1500, Until Discontinued, Routine 1407 (Given - Provider: Wanda Wolfe RN)1739 (JUN Hold - Provider: Admin Adt - Reason: Transfer to a Procedural area)2230 (JUN Unhold - Provider: Admin Adt)2248 (Given - Provider: Megan Bansal, RN) 0823 (Given - Provider: Wanda Wolfe RN)1500 (Due - Provider: Admin Adt) clonazePAM (KlonoPIN) tablet 1 mg 1 mg, Oral, NIGHTLY, First dose on Sat09/26/21 at 2100, Until Discontinued, DO NOT SPLIT, CRUSH OR OPEN, Routine 2027 (Given - Provider: Tom Fernandez, PRISCILA) 1738 (JUN Hold - Provider: Admin Adt - Reason: Transfer to a Procedural area)2230 (JUN Unhold - Provider: Admin Adt)2250 (Given - Provider: Megan Bansal RN) cloNIDine (Catapres) tablet 0.2 mg 0.2 mg, Oral, DAILY, First dose on Sat09/26/21 at 2000, Until Discontinued, Routine 0816 (Given - Provider: Arlene Feldman LPN) 08 (Given - Provider: Wanda Wolfe RN)1738 ([facility] Hold - Provider: Admin Adt - Reason: Transfer to a Procedural area)2230 ([facility] Unhold - Provider: Admin Adt) 0823 (Given - Provider: Wanda Wolfe RN) docusate sodium (Colace) capsule 100 mg 100 mg, Oral, 2 TIMES DAILY, First dose on Sat09/26/21 at 2100, Until Discontinued, Routine 0900 (Not Given - Provider: Arlene Feldman LPN - Reason: Contraindicated)2027 (Given - Provider: Tom Fernandez RN) 08 (Given - Provider: Wanda Wolfe RN)1738 (JUN Hold - Provider: Admin Adt - Reason: Transfer to a Procedural area)2099 (Not Given - Provider: Megan Bansal RN - Reason: Patient/family refused)2230 ([facility] Unhold - Provider: Admin Adt) 0823 (Not Given - Provider: Wanda Wolfe RN - Reason: Patient/family refused) enoxaparin (Lovenox) (40 mg/0.4 mL) subcutaneous injection 40 mg 40 mg, Subcutaneous, NIGHTLY, First dose on 5/31/22 at 2100, Until Discontinued, Routine 2030 (Given - Provider: Tom Fernandez RN) 173 ([facility] Hold - Provider: Admin Adt - Reason: Transfer to a Procedural area)223 ([facility] Unhold - Provider: Admin Adt)224 (Given - Provider: Megan Bansal RN) famotidine (Pepcid) tablet 20 mg 20 mg, Oral, DAILY, First dose on Sat09/26/21 at 2000, Until Discontinued 0816 (Given - Provider: Arlene Feldman LPN) 0809 (Given - Provider: Wanda Wolfe RN)173 ([facility] Hold - Provider: Admin Adt - Reason: Transfer to a Procedural area)223 ([facility] Unhold - Provider: Admin Adt) 0823 (Given - Provider: Wanda Wolfe RN) gabapentin (Neurontin) capsule 800 mg 800 mg, Oral, 3 TIMES DAILY, First dose on Sat09/26/21 at 2100, Until Discontinued, Routine 0814 (Given - Provider: Arlene Feldman LPN)1446 (Given - Provider: Megan Bansal RN)202 (Given - Provider: Tom Fernandez RN) 0809 (Given - Provider: Wanda Wolfe RN)1400 (Given - Provider: Wanda Wolfe RN)173 ([facility] Hold - Provider: Admin Adt - Reason: Transfer to a Procedural area)2230 ([facility] Unhold - Provider: Admin Adt)2250 (Given - Provider: Megan Bansal RN) 0823 (Given - Provider: Wanda Wolfe RN)1500 (Due - Provider: Admin Adt) insulin glargine-ygfn (Semglee) (100 unit/mL) subcutaneous injection vial 10 Units (COMPLETED) 10 Units, Subcutaneous, ONCE, 1 dose, On Sat09/29/21 at 1000, Routine 1015 (Given - Provider: Wanda Wolfe RN) insulin glargine-ygfn (Semglee) (100 unit/mL) subcutaneous injection vial 25 Units (COMPLETED) 25 Units, Subcutaneous, ONCE, 1 dose, On Sat09/27/21 at 1330, Routine 1446 (Given - Provider: Megan Bansal RN) insulin glargine-ygfn (Semglee) (100 unit/mL) subcutaneous injection vial 25 Units (CANCELED) 25 Units, Subcutaneous, DAILY, First dose (after last modification) on Edwina 09/28/21 at 1400, Until Discontinued, Please check blood sugar prior to administration and hold if blood sugar is less than 90, Routine 1400 (Given - Provider: Wanda Wolfe RN)1739 (JUN Hold - Provider: Admin Adt - Reason: Transfer to a Procedural area)223 (JUN Unhold - Provider: Admin Adt) 0829 (Given - Provider: Wanda Wolfe RN) insulin glargine-ygfn (Semglee) (100 unit/mL) subcutaneous injection vial 40 Units 40 Units, Subcutaneous, DAILY, First dose (after last modification) on [facility] 09/30/21 at 0900, Until Discontinued, Please check blood sugar prior to administration and hold if blood sugar is less than 90, Routine insulin lispro (HumaLOG;Admelog) (100 unit/mL) subcutaneous injection vial 1-6 Units(Linked Group 1) 1-6 Units, Subcutaneous, 3 TIMES DAILY BEFORE MEALS, First dose on [facility] 09/28/21 at 1130, Until Discontinued, CORRECTION BOLUS [1-6 Units] Moderate Sliding Scale (BG in mg/dL): Correction factor 20 (1 unit of insulin is expected to drop the glucose 20 mg/dL) BG 140 - 160 Give 1 unit BG 161 - 180 Give 2 units BG 181 - 200 Give 3 units BG 201 - 220 Give 4 units BG 221 - 240 Give 5 units BG greater than 240, give 6 units and recheck BG in 2 hours. - If recheck BG is LESS than 240, give no insulin and resume schedule. - If recheck BG is GREATER than 240, give 6 units and repeat BG in 2 hours (no more than 3 times) & call for new insulin orders. DO NOT hold if NPO, unless specifically directed to do so by written order. Per Blood Glucose Monitoring Policy, re-check a BG of > 240 mg/dL in 2 hours., Routine 1139 (Given - Provider: Wanda Wolfe RN)1708 (Given - Provider: Wanda Wolfe RN)1739 (JUN Hold - Provider: Admin Adt - Reason: Transfer to a Procedural area)2231 (JUN Unhold - Provider: Admin Adt) 0640 (Given - Provider: Khalida Toro RN)1200 (Given - Provider: Wanda Wolfe RN) labetaloL (Normodyne) tablet 200 mg 200 mg, Oral, 2 TIMES DAILY, First dose on Sat09/26/21 at 2100, Until Discontinued, Routine 0814 (Given - Provider: Arlene Feldman LPN)202 (Given - Provider: Tom Fernandez RN) 08 (Given - Provider: Wanda Wolfe RN)1738 (JUN Hold - Provider: Admin Adt - Reason: Transfer to a Procedural area)2230 (MAR Unhold - Provider: Admin Adt)225 (Given - Provider: Megan Bansal RN) 0824 (Given - Provider: Wanda Wolfe RN) metFORMIN (Glucophage) tablet 1,000 mg 1,000 mg, Oral, 2 TIMES DAILY WITH MEALS, First dose on Sat09/29/21 at 0845, Until Discontinued, Routine 0823 (Given - Provider: Wanda Wolfe RN) nicotine (Nicoderm CQ) 14 mg/24 hr patch 14 mg(Linked Group 2) 14 mg (1 patch), Transdermal, Administer over 24 Hours, DAILY, First dose on Sat09/26/21 at 1945, Until Discontinued, Apply new patch to nonhairy, clean, dry skin on the upper body or upper outer arm; each patch should be applied to a different site , Routine 0818 (Given - Provider: Arlene Feldman LPN) 0814 (Given - Provider: Wanda Wolfe RN)1738 (MAR Hold - Provider: Admin Adt - Reason: Transfer to a Procedural area)2230 (MAR Unhold - Provider: Admin Adt) 1015 (Given - Provider: Wanda Wolfe RN) nicotine (NICODERM CQ) 14 mg/24 hr patch Patch Removal(Linked Group 2) Transdermal, DAILY, First dose on Sat09/27/21 at 0900, Until Discontinued, Remove nicotine 14 mg/24 hr patch 0900 (Patch Removed - Provider: Arlene Feldman LPN) 09 (Patch Removed - Provider: Wanda Wolfe RN)173 (MAR Hold - Provider: Admin Adt - Reason: Transfer to a Procedural area)2230 (MAR Unhold - Provider: Admin Adt) 0900 (Patch Removed - Provider: Wanda Wolfe RN) nicotine (NICODERM CQ) 14 mg/24 hr patch Patch Verification(Linked Group 2) Transdermal, 2 TIMES DAILY, First dose on Sat09/27/21 at 0700, Until Discontinued, Verify nicotine 14 mg/24 hr patch. 0700 (Patch (dose and location) verified - Provider: Zuly Tam RN)2100 (Patch (dose and location) verified - Provider: Tom Fernandez RN) 0900 (Patch (dose and location) verified - Provider: Wanda Wolfe RN)173 (JUN Hold - Provider: Admin Adt - Reason: Transfer to a Procedural area)2099 (Patch (dose and location) verified - Provider: Megan Bansal RN)2230 (JUN Unhold - Provider: Admin Adt) 0900 (Patch (dose and location) verified - Provider: Wanda Wolfe RN) QUEtiapine (SEROquel) tablet 400 mg (CANCELED) 400 mg, Oral, DAILY, First dose on Sat09/26/21 at 2000, Until Discontinued, Routine 0814 (Given - Provider: Arlene Feldman LPN) QUEtiapine (SEROquel) tablet 400 mg 400 mg, Oral, NIGHTLY, First dose (after last modification) on Sat09/28/21 at 0015, Until Discontinued, Routine 2330 (Given - Provider: Tom Fernandez RN) 173 (JUN Hold - Provider: Admin Adt - Reason: Transfer to a Procedural area)2230 (JUN Unhold - Provider: Admin Adt)224 (Given - Provider: Megan Bansal, PRISCILA) rosuvastatin (Crestor) tablet 20 mg 20 mg, Oral, EVERY EVENING, First dose on Sat09/26/21 at 2000, Until Discontinued, Routine 1755 (Given - Provider: Arlene Feldman LPN) 1708 (Given - Provider: Wanda Wolfe RN)173 (JUN Hold - Provider: Admin Adt - Reason: Transfer to a Procedural area)2230 (JUN Unhold - Provider: Admin Adt) senna-docusate (Pericolace) 8.6-50 mg per tablet 2 tablet 2 tablet, Oral, 2 TIMES DAILY, First dose on Sat09/26/21 at 2100, Until Discontinued, Routine 0900 (Not Given - Provider: Arlene Feldman LPN - Reason: Patient/family refused)2099 (Not Given - Provider: Tom Fernandez RN - Reason: Patient/family refused) 08 (Given - Provider: Wanda Wolfe RN)173 (MAR Hold - Provider: Admin Adt - Reason: Transfer to a Procedural area)2099 (Not Given - Provider: Megan Bansal RN - Reason: Patient/family refused)2100 (Not Given - Provider: Megan Bansal RN - Reason: Patient/family refused)223 (MAR Unhold - Provider: Admin Adt) 08 (Not Given - Provider: Wanda Wolfe RN - Reason: Patient/family refused) sodium chloride 0.9 % (flush) (BD PosiFlush Normal Saline 0.9) flush 5 mL 5 mL, Intravenous, 2 TIMES DAILY, First dose on Sat09/26/21 at 2100, Until Discontinued, Routine 0819 (Given - Provider: Arlene Feldman LPN)2030 (Given - Provider: Tom Fernandez RN) 08 (Given - Provider: Wanda Wolfe RN)1738 (MAR Hold - Provider: Admin Adt - Reason: Transfer to a Procedural area)2099 (Not Given - Provider: Megan Bansal RN - Reason: Patient not available)2230 (MAR Unhold - Provider: Admin Adt)225 (Given - Provider: Megan Bansal RN) 08 (Given - Provider: Wanda Wolfe RN) PRN Medication Order 09/27/2021 09/28/2021 09/29/2021 cyclobenzaprine (Flexeril) tablet 5 mg 5 mg, Oral, 3 TIMES DAILY PRN, Starting on Sat09/26/21 at 1905, Until Sat09/29/21 at 1826, Muscle spasms, Routine 0618 (Given - Provider: Zuly Tam RN)2028 (Given - Provider: Tom Fernandez, PRISCILA) 0553 (Given - Provider: Tom Fernandez, RN)171 (Given - Provider: Wanda Wolfe RN)173 (MAR Hold - Provider: Admin Adt - Reason: Transfer to a Procedural area)2230 (MAR Unhold - Provider: Admin Adt)224 (Given - Provider: Megan Bansal RN) 1022 (Given - Provider: Wanda Wolfe RN) dextrose 10% infusion(Linked Group 3) 250 mL, at 1,000 mL/hr, Intravenous, EVERY 30 MIN PRN, Starting on Sat09/29/21 at 0843, Until Sat09/29/21 at 1826, For BG 50-70 mg/dL: Oral treatment preferred: If able to drink, give 120 mL Juice or Regular (not diet) soda OR If NPO, give 15 gram glucose 40% oral gel massaged into buccal mucosa OR if unconscious or uncooperative, give 25 gram (250 mL) Dextrose 10% IV over 15 minutes per protocol OR, if no IV access, 1 mg Glucagon IM. For BG less than 50 mg/dL: Oral treatment preferred: If able to drink, give 240 mL Juice or Regular (not diet) soda OR If NPO, give 30 gram glucose 40% oral gel massaged in buccal mucosa OR if unconscious or uncooperative, give 25 gram (250 mL) Dextrose 10% IV over 15 minutes per protocol OR, if no IV access, 1 mg Glucagon IM. Recheck BG in 30 minutes. May repeat juice/soda, gel, dextrose or glucagon once per episode. For persistent hypoglycemia, consider longer-acting treatment for the duration of the active insulin. glucagon (Glucagen) (1 mg/mL) injection solution 1 mg(Linked Group 3) 1 mg, Intramuscular, EVERY 30 MIN PRN, Starting on Sat09/29/21 at 0843, Until Sat09/29/21 at 1826, Low blood sugar, For BG 50-70 mg/dL: Oral treatment preferred: If able to drink, give 120 mL Juice or Regular (not diet) soda OR If NPO, give 15 gram glucose 40% oral gel massaged into buccal mucosa OR if unconscious or uncooperative, give 25 gram (250 mL) Dextrose 10% IV over 15 minutes per protocol OR, if no IV access, 1 mg Glucagon IM. For BG less than 50 mg/dL: Oral treatment preferred: If able to drink, give 240 mL Juice or Regular (not diet) soda OR If NPO, give 30 gram glucose 40% oral gel massaged in buccal mucosa OR if unconscious or uncooperative, give 25 gram (250 mL) Dextrose 10% IV over 15 minutes per protocol OR, if no IV access, 1 mg Glucagon IM. Recheck BG in 30 minutes. May repeat juice/soda, gel, dextrose or glucagon once per episode. For persistent hypoglycemia, consider longer-acting treatment for the duration of the active insulin., Routine glucose (Glutose) 40% oral geL(Linked Group 3) 15-30 g of glucose, Buccal, EVERY 30 MIN PRN, Starting on Sat09/29/21 at 0843, Until Sat09/29/21 at 1826, Low blood sugar, For BG 50-70 mg/dL: Oral treatment preferred: If able to drink, give 120 mL Juice or Regular (not diet) soda OR If NPO, give 15 gram glucose 40% oral gel massaged into buccal mucosa OR if unconscious or uncooperative, give 25 gram (250 mL) Dextrose 10% IV over 15 minutes per protocol OR, if no IV access, 1 mg Glucagon IM. For BG less than 50 mg/dL: Oral treatment preferred: If able to drink, give 240 mL Juice or Regular (not diet) soda OR If NPO, give 30 gram glucose 40% oral gel massaged in buccal mucosa OR if unconscious or uncooperative, give 25 gram (250 mL) Dextrose 10% IV over 15 minutes per protocol OR, if no IV access, 1 mg Glucagon IM. Recheck BG in 30 minutes. May repeat juice/soda, gel, dextrose or glucagon once per episode. For persistent hypoglycemia, consider longer-acting treatment for the duration of the active insulin. 1 tube of Glutose-15 contains 15 grams of glucose (net weight of tube = 37.5 grams.), Routine HYDROmorphone (Dilaudid) (2 mg/mL) multi-dose injection solution 0.4 mg (CANCELED)(Linked Group 4) 0.4 mg, Intravenous, EVERY 10 MIN PRN, Starting on Edwina 09/28/21 at 1948, Until Sat09/28/21 at 2220, Pain, For Moderate to Severe Pain (6-10 out of 10), Hold for respiratory rate less than 10 per minute. Maximum dose 3 mg over one hour including administrations in the OR. If multiple pain medications are ordered, start with HYDROmorphone or morphine and use fentaNYL for breakthrough pain, PACU Recovery, Routine 2056 (Given - Provider: Yancy Maria, RN)2119 (Given - Provider: Yancy Maria, RN) INSULIN PUMP (PATIENT OWN) Subcutaneous, ONCE PRN, Other, This is Placeholder Medication., Starting on Sat09/27/21 at 1257, 1 dose, Until Sat09/29/21 at 1826, Patient to administer per own pump. Before discontinuing the pump, obtain an order and administer subcutaneous basal insulin. Document bolus doses, as reported by patient, in the Doc Flowsheet, under POC Glucose Comments (Insulin Pump Bolus (Units))., Medication Name: lispro (Humalog) 1738 ([facility] Hold - Provider: Admin Adt - Reason: Transfer to a Procedural area)2230 ([facility] Unhold - Provider: Admin Adt) ipratropium-albuteroL (Duoneb) 0.5 mg-3 mg(2.5 mg base)/3 mL nebulizer solution 3 mL 3 mL, Nebulization, 4 TIMES DAILY PRN, Starting on Sat09/26/21 at 1905, Until Sat09/29/21 at 1826, Wheezing, Routine 1738 ([facility] Hold - Provider: Admin Adt - Reason: Transfer to a Procedural area)2230 ([facility] Unhold - Provider: Admin Adt) lidocaine (Xylocaine) 1% (10 mg/mL) injection 3 mg 3 mg (0.3 mL), Subcutaneous, ONCE PRN, 1 dose, Starting on Sat09/26/21 at 1908, Until Sat09/29/21 at 1826, for discomfort with PIV insertion, Routine 1738 ([facility] Hold - Provider: Admin Adt - Reason: Transfer to a Procedural area)2230 ([facility] Unhold - Provider: Admin Adt) melatonin tablet 3 mg 3 mg, Oral, NIGHTLY PRN, Starting on Sat09/26/21 at 1910, Until Sat09/29/21 at 1826, Sleep, Routine 2028 (Given - Provider: Tom Fernandez RN) 1738 ([facility] Hold - Provider: Admin Adt - Reason: Transfer to a Procedural area)2230 ([facility] Unhold - Provider: Admin Adt) ondansetron ODT (Zofran-ODT) disintegrating tablet 4 mg 4 mg, Oral, EVERY 8 HOURS PRN, Starting on Sat09/26/21 at 1905, Until Sat09/29/21 at 1826, Nausea, Routine 1739 ([facility] Hold - Provider: Admin Adt - Reason: Transfer to a Procedural area)2230 ([facility] Unhold - Provider: Admin Adt) oxyCODONE (Roxicodone) tablet 10-15 mg(Linked Group 5) 10-15 mg, Oral, EVERY 4 HOURS PRN, Starting on Tu09/26/21 at 1905, Until Sat09/29/21 at 1826, Pain, severe pain (7-10), Initial dose 10mg. If pain control not adequate in 60 minutes, give additional 5mg, Routine 0324 (Given - Provider: Zuly Tam RN)0736 (Given - Provider: Arlene Feldman LPN)1135 (Given - Provider: Arlene Feldman LPN)2027 (Given - Provider: Tom Fernandez RN)234 (Given - Provider: Tom Fernandez RN) 0553 (Given - Provider: Tom Fernandez, PRISCILA)1400 (Given - Provider: Wanda Wolfe RN)173 ([facility] Hold - Provider: Admin Adt - Reason: Transfer to a Procedural area)2043 ([facility] Unhold - Provider: Yancy Maria RN)205 (Given - Provider: Yancy Maria, PRISCILA) 0055 (Given - Provider: Megan Bansal, PRISCILA)0233 (See Alternative - Provider: Megan Bansal RN)0824 (Given - Provider: Wanda Wolfe, PRISCILA) oxyCODONE (Roxicodone) tablet 5-10 mg(Linked Group 5) 5-10 mg, Oral, EVERY 4 HOURS PRN, Starting on Sat09/26/21 at 1905, Until Sat09/29/21 at 1826, Pain, moderate pain (4-6), Initial dose 5mg. If pain control not adequate in 60 minutes, give additional 5mg, Routine 0324 (See Alternative - Provider: Zuly Tam RN)0736 (See Alternative - Provider: Arlene Feldman LPN)1135 (See Alternative - Provider: Arlene Feldman LPN)2027 (See Alternative - Provider: Tom Fernandez RN)2344 (See Alternative - Provider: Tom Fernandez RN) 0553 (See Alternative - Provider: Tom Fernandez, PRISCILA)1400 (See Alternative - Provider: Wanda Wolfe, RN)173 ([facility] Hold - Provider: Admin Adt - Reason: Transfer to a Procedural area)2043 ([facility] Unhold - Provider: Yancy Maria, RN)2049 (See Alternative - Provider: Yancy Maria, RN) 005 (See Alternative - Provider: Megan Bansal, RN)0233 (Given - Provider: Megan Bansal RN - Comment: Add 5, total 15 mg)0824 (See Alternative - Provider: Wanda Wolfe RN) sodium chloride 0.9 % (flush) (BD PosiFlush Normal Saline 0.9) flush 5-20 mL 5-20 mL, Intravenous, EVERY 1 MIN PRN, Starting on Sat09/26/21 at 1908, Until Sat09/29/21 at 1826, flush, Flush pertains to all indwelling lines. Flush per protocol found in the job aid using the link provided on this medication record., Routine 1738 ([facility] Hold - Provider: Admin Adt - Reason: Transfer to a Procedural area)2230 ([facility] Unhold - Provider: Admin Adt) vancomycin (Vancocin) injection (CANCELED) ONCE PRN, Starting on Sat09/28/21 at 1923, Until Sat09/29/21 at 1826, Intra-Operative (Intra-Procedure), Routine 1922 (Given - Provider: Geronimo Giron MD) Linked Groups Order Group 1: POCT Fingerstick Glucose (CANCELED) Routine, 4 TIMES DAILY BEFORE MEALS & AT BEDTIME, First occurrence on Sat09/28/21 at 1100, Until Specified, Consider choosing FOUR TIMES A DAY BEFORE MEALS AND AT BEDTIME as frequency for: Patients who have a good hypoglycemia awareness: -Patients who are eating meals during the day and sleeping at night -Patient who are otherwise stable And insulin lispro (HumaLOG;Admelog) (100 unit/mL) subcutaneous injection vial 1-6 UnitsJump to med 1-6 Units, Subcutaneous, 3 TIMES DAILY BEFORE MEALS, First dose on Sat09/28/21 at 1130, Until Discontinued, CORRECTION BOLUS [1-6 Units] Moderate Sliding Scale (BG in mg/dL): Correction factor 20 (1 unit of insulin is expected to drop the glucose 20 mg/dL) BG 140 - 160 Give 1 unit BG 161 - 180 Give 2 units BG 181 - 200 Give 3 units BG 201 - 220 Give 4 units BG 221 - 240 Give 5 units BG greater than 240, give 6 units and recheck BG in 2 hours. - If recheck BG is LESS than 240, give no insulin and resume schedule. - If recheck BG is GREATER than 240, give 6 units and repeat BG in 2 hours (no more than 3 times) & call for new insulin orders. DO NOT hold if NPO, unless specifically directed to do so by written order. Per Blood Glucose Monitoring Policy, re-check a BG of > 240 mg/dL in 2 hours., Routine Group 2: nicotine (Nicoderm CQ) 14 mg/24 hr patch 14 mgJump to med 14 mg (1 patch), Transdermal, Administer over 24 Hours, DAILY, First dose on Sat09/26/21 at 1945, Until Discontinued, Apply new patch to nonhairy, clean, dry skin on the upper body or upper outer arm; each patch should be applied to a different site , Routine And nicotine (NICODERM CQ) 14 mg/24 hr patch Patch VerificationJump to med Transdermal, 2 TIMES DAILY, First dose on Sat09/27/21 at 0700, Until Discontinued, Verify nicotine 14 mg/24 hr patch. And nicotine (NICODERM CQ) 14 mg/24 hr patch Patch RemovalJump to med Transdermal, DAILY, First dose on Sat09/27/21 at 0900, Until Discontinued, Remove nicotine 14 mg/24 hr patch Group 3: glucose (Glutose) 40% oral geLJump to med 15-30 g of glucose, Buccal, EVERY 30 MIN PRN, Starting on Sat09/29/21 at 0843, Until Sat09/29/21 at 1826, Low blood sugar, For BG 50-70 mg/dL: Oral treatment preferred: If able to drink, give 120 mL Juice or Regular (not diet) soda OR If NPO, give 15 gram glucose 40% oral gel massaged into buccal mucosa OR if unconscious or uncooperative, give 25 gram (250 mL) Dextrose 10% IV over 15 minutes per protocol OR, if no IV access, 1 mg Glucagon IM. For BG less than 50 mg/dL: Oral treatment preferred: If able to drink, give 240 mL Juice or Regular (not diet) soda OR If NPO, give 30 gram glucose 40% oral gel massaged in buccal mucosa OR if unconscious or uncooperative, give 25 gram (250 mL) Dextrose 10% IV over 15 minutes per protocol OR, if no IV access, 1 mg Glucagon IM. Recheck BG in 30 minutes. May repeat juice/soda, gel, dextrose or glucagon once per episode. For persistent hypoglycemia, consider longer-acting treatment for the duration of the active insulin. 1 tube of Glutose-15 contains 15 grams of glucose (net weight of tube = 37.5 grams.), Routine Or dextrose 10% infusionJump to med 250 mL, at 1,000 mL/hr, Intravenous, EVERY 30 MIN PRN, Starting on Sat09/29/21 at 0843, Until Sat09/29/21 at 1826, For BG 50-70 mg/dL: Oral treatment preferred: If able to drink, give 120 mL Juice or Regular (not diet) soda OR If NPO, give 15 gram glucose 40% oral gel massaged into buccal mucosa OR if unconscious or uncooperative, give 25 gram (250 mL) Dextrose 10% IV over 15 minutes per protocol OR, if no IV access, 1 mg Glucagon IM. For BG less than 50 mg/dL: Oral treatment preferred: If able to drink, give 240 mL Juice or Regular (not diet) soda OR If NPO, give 30 gram glucose 40% oral gel massaged in buccal mucosa OR if unconscious or uncooperative, give 25 gram (250 mL) Dextrose 10% IV over 15 minutes per protocol OR, if no IV access, 1 mg Glucagon IM. Recheck BG in 30 minutes. May repeat juice/soda, gel, dextrose or glucagon once per episode. For persistent hypoglycemia, consider longer-acting treatment for the duration of the active insulin. Or glucagon (Glucagen) (1 mg/mL) injection solution 1 mgJump to med 1 mg, Intramuscular, EVERY 30 MIN PRN, Starting on Sat09/29/21 at 0843, Until Sat09/29/21 at 1826, Low blood sugar, For BG 50-70 mg/dL: Oral treatment preferred: If able to drink, give 120 mL Juice or Regular (not diet) soda OR If NPO, give 15 gram glucose 40% oral gel massaged into buccal mucosa OR if unconscious or uncooperative, give 25 gram (250 mL) Dextrose 10% IV over 15 minutes per protocol OR, if no IV access, 1 mg Glucagon IM. For BG less than 50 mg/dL: Oral treatment preferred: If able to drink, give 240 mL Juice or Regular (not diet) soda OR If NPO, give 30 gram glucose 40% oral gel massaged in buccal mucosa OR if unconscious or uncooperative, give 25 gram (250 mL) Dextrose 10% IV over 15 minutes per protocol OR, if no IV access, 1 mg Glucagon IM. Recheck BG in 30 minutes. May repeat juice/soda, gel, dextrose or glucagon once per episode. For persistent hypoglycemia, consider longer-acting treatment for the duration of the active insulin., Routine Group 4: HYDROmorphone (Dilaudid) (2 mg/mL) multi-dose injection solution 0.2 mg (CANCELED) 0.2 mg, Intravenous, EVERY 10 MIN PRN, Starting on Sat09/28/21 at 1948, Until Edwina 09/28/21 at 2220, Pain, For Mild to Moderate Pain (1-5 out of 10), Hold for respiratory rate less than 10 per minute. Maximum dose 3 mg over one hour including administrations in the OR. If multiple pain medications are ordered, start with HYDROmorphone or morphine and use fentaNYL for breakthrough pain, PACU Recovery, Routine Or HYDROmorphone (Dilaudid) (2 mg/mL) multi-dose injection solution 0.4 mg (CANCELED)Jump to med 0.4 mg, Intravenous, EVERY 10 MIN PRN, Starting on Sat09/28/21 at 1948, Until Edwina 09/28/21 at 2220, Pain, For Moderate to Severe Pain (6-10 out of 10), Hold for respiratory rate less than 10 per minute. Maximum dose 3 mg over one hour including administrations in the OR. If multiple pain medications are ordered, start with HYDROmorphone or morphine and use fentaNYL for breakthrough pain, PACU Recovery, Routine Group 5: oxyCODONE (Roxicodone) tablet 5-10 mgJump to med 5-10 mg, Oral, EVERY 4 HOURS PRN, Starting on Sat09/26/21 at 1905, Until Sat09/29/21 at 1826, Pain, moderate pain (4-6), Initial dose 5mg. If pain control not adequate in 60 minutes, give additional 5mg, Routine Or oxyCODONE (Roxicodone) tablet 10-15 mgJump to med 10-15 mg, Oral, EVERY 4 HOURS PRN, Starting on Sat09/26/21 at 1905, Until Sat09/29/21 at 1826, Pain, severe pain (7-10), Initial dose 10mg. If pain control not adequate in 60 minutes, give additional 5mg, Routine documented in this encounter Care Teams Employee Representative Relationship Specialty Start Date End Date Jossie Patton APRN [address] [place] [address] PCP - General Family Medicine 04/19/20 documented as of this encounter
--- OUTSIDE RECORDS SUMMARY | 2024-02-14 15:17 | XMS_ITS | Encounter Summary ---
Author Organization [facility] [place] [address] Care Team Providers Care Latin Dancer Name Role Phone Jossie Patton APRN Primary Care Provider [phone] Reason for Visit * Reason Comments Medication Refill Encounter Details Date Type Department Care Team (Late st Contact Info) Description 09/13/2021 [place] [id number] Elijah Oneal MD [facility] [address] [place] [address] Social History Tobacco Use Types Packs/Day Years [...] 1:40 PM EDT Office [place] [address] Kristi Caicedo APRN [facility] [address] [place] [address] documented as of this encounter Visit Diagnoses Not on filedocumented in this encounter Care Teams Latin Dancer Relationship Specialty Start Date End Date Jossie Patton APRN [address] [place], [place] [address] PCP - General Family Medicine 04/19/20 documented as of this encounter
--- OUTSIDE RECORDS SUMMARY | 2024-02-14 15:17 | XMS_ITS | Encounter Summary ---
Author Organization [facility] [place] [address] Care Team Providers Care Macerator Operator Name Role Phone Jossie Patton Gabrielle GARCIA Primary Care Provider [phone] Reason for Visit * Reason Comments Post Op Encounter Details Date Type Department Care Team (Late st Contact Info) Description 10/11/2021 2:00 PM EDT Office [place] [address] Geronimo Giron MD [facility] [place] [address] Closed fracture of shaft of right humerus [...] Sign Reading Time Taken Comments Blood Pressure 143/84 10/11/2021 2:05 PM EDT Pulse 100 10/11/2021 2:05 PM EDT Temperature - - Respiratory Rate - - Oxygen Saturation - - Inhaled Oxygen Concentration - - Weight 86.6 kg (191 lb) 10/11/2021 2:05 PM EDT Height 152.4 cm (5') 10/11/2021 2:05 PM EDT Body Mass Index 37.3 10/11/2021 2:05 PM EDT documented in this encounter Progress Notes * Geronimo Giron MD - 10/11/2021 2:00 PM EDT [facility] Guzman Jean returns for follow-up 2 weeks s/p right humerus ORIF on 09/28/21. She reports she isdoing well. Her pain is well controlled. She is using her arm for ADLs, limiting lifting to <2lbs. Her pain and swelling is improving. Has some numbness and tingling with her arm in certain positions. Has had no issues with her incision or dressings. Denies any fevers night sweats or chills. Her blood sugars have been much better controlled with her insulin pump and glucose monitor. She has not had any more sleep walking episodes. She has no other complaints today, and [...] Sensation to light touch is intact throughout. Radiographs: 2 views of the right humerus were obtained and reviewed. This demonstrates maintained alignment andreduction compared to postoperative radiographs. There are no changes in implant position or evidence of implant failure or loss of fixation. Fracture lines are visible. No other osseous abnormalities. Assessment and Plan: Guzman Jean is a 46 y.o. female who returns for follow-up 2 weeks s/p surgery. She is doing well. Skin issues have resolved. Her blood sugars are better controlled -Weight Bearing Status: NWB RUE, ok for ADLs, limit lifting to <2lbs -Removed sutures and applied steri-strips -Continue ROM of shoulder and elbow, wrist and fingers -Continue diabetes management -Follow-up in 6 weeks for clinical evaluation and xrays of the right humerus This plan was discussed with the patient and she is in agreement. All of the patient's questions were answered. Geronimo Giron MD Department of Orthopaedic Surgery 10/11/21 documented in this encounter Plan of Treatment Upcoming Encounters Date Type Department Care Team (Late st Contact Info) Description 02/21/2024 1:40 PM EDT Office [place] [address] Kristi Caicedo APRN [facility] [place] [address] documented as of this encounter Results * [...] who have questions please contact the health progressive care unit registered nurse that requested your imaging first. ? Narrative [...] patients who have questions please contactthe health progressive care unit registered nurse that requested your imaging first. Electronically signed by: Ruthy Euceda MD, [facility]([phone]), at 02/02/2022 2:04 PM Geronimo Giron MD IMG DX ORDERABLES documented in this encounter Visit Diagnoses Diagnosis Closed fracture of shaft of right humerus with routine healing, unspecified fracture morphology, subsequent encounter Closed fracture of shaft of right humerus with routine healing, unspecified fracture morphology, subsequent encounter documented in this encounter Care Teams Macerator Operator Relationship Specialty Start Date End Date Jossie Patton APRN [address] [place] [address] PCP - General Family Medicine 04/19/20 documented as of this encounter
--- OUTSIDE RECORDS SUMMARY | 2024-02-14 15:17 | XMS_ITS | Encounter Summary ---
[place] [address] Care Team Providers Care Agency Manager Name Role Phone Jossie Patton APRN Primary Care Provider [phone] Reason for Visit * Reason Comments Establish Care NXR- FAIL NON OP SEAN ATMENT - RIGHT HUM FX DOI 09/19/21 * Auth/Cert Specialty Diagnoses / Procedures Referred By Savannah t Referred To Contact Diagnoses Humerus fracture fx humerus ORIF Procedures Madelaine Rasmussen MD [facility] [place] [address] [facility] Referral ID Status Reason Start Date Expiration Date Visits Re quested Visits Authorized [id number] 1 1 Encounter Details Date Type Department Care Team (Late st Contact Info) Description 09/26/2021 1:00 PM EDT Office [place] [address] Closed nondisplaced segmental fracture of shaft of right humerus with routine healing, subsequent encounter Social History Tobacco Use Types Packs/Day Years Used Date Smoking Tobacco: Every Day Cigarettes Smokeless Tobacco: Never Comments:marijuana occasiona lly Sex and Gender Information Value Date Recorded Sex Assigned at Not on file Gender Identity Not on file Sexual Orientation Not on file documented as of this encounter Last Filed Vital Signs Vital Sign Reading Time Taken Comments Blood Pressure 123/55 09/26/2021 1:27 PM EDT Pulse - - Temperature - - Respiratory Rate - - Oxygen Saturation - - Inhaled Oxygen Concentration - - Weight 95.3 kg (210 lb) 09/26/2021 1:27 PM EDT Height 152.4 cm (5') 09/26/2021 1:27 PM EDT Body Mass Index 41.01 09/26/2021 1:27 PM EDT documented in this encounter Progress Notes * Tammi Walton - 09/26/2021 1:00 PM EDT Opened in error documented in this encounter Plan of Treatment Upcoming Encounters Date Type Department Care Team (Late st Contact Info) Description 02/21/2024 1:40 PM EDT Office [place] [address] Kristi Caicedo APRN [facility] [place] [address] documented as of this encounter Visit Diagnoses Diagnosis Closed nondisplaced segmental fracture of shaft of right humerus with routine healing, subsequent encounter documented in this encounter Care Teams Agency Manager Relationship Specialty Start Date End Date Jossie Patton APRN [address] [place] [address] PCP - General Family Medicine 04/19/20 documented as of this encounter
--- OUTSIDE RECORDS SUMMARY | 2024-02-14 15:17 | XMS_ITS | Encounter Summary ---
Author Organization [facility] [place] [address] Care Team Providers Care Display Manager Name Role Phone Pooja, Jossie Gabrielle GARCIA Primary Care Provider [phone] Encounter Details Date Type Department Care Team (Late st Contact Info) Description 10/09/2021 Orders Only [place] [address] Geronimo Giron MD [facility] [place] [address] Open fracture of proximal end of right humerus, unspecified fracture morphology, initial encounter Social History Tobacco Use Types Packs/Day Years Used Date Smoking Tobacco: Every Day Cigarettes Smokeless Tobacco: Never Comments:marijuana occasiona lly Sex and Gender Information Value Date Recorded Sex Assigned at Not on file Gender Identity Not on file Sexual Orientation Not on file documented as of this encounter Progress Notes * Arabella Blankenship - 10/09/2021 7:26 AM EDT . documented in this encounter Plan of Treatment Upcoming Encounters Date Type Department Care Team (Late st Contact Info) Description 02/21/2024 1:40 PM EDT Office Visit [place] [phone] Kristi Caicedo APRN [facility] [place] [address] documented as of this encounter Results * [...] who have questions please contact the health geriatric care manager that requested your imaging first. ? Electronically signed by: Wanda Mcnamara MD, [facility] ([phone]), at 10/11/2021 1:52 PM Narrative 10/11/2021 1:52 PM EDT EXAMINATION: XR [...] patients who have questions please contactthe health geriatric care manager that requested your imaging first. Electronically signed by: Wanda Mcnamara MD, [facility]([phone]), at 10/11/2021 1:52 PM Geronimo Giron MD IMG DX ORDERABLES documented in this encounter Visit Diagnoses Diagnosis Open fracture of proximal end of right humerus, unspecified fracture morphology, initial encounter Open fracture of proximal end of right humerus, unspecified fracture morphology, initial encounter documented in this encounter Care Teams Display Manager Relationship Specialty Start Date End Date Jossie Patton APRN [address] [place] [address] PCP - General Family Medicine 04/19/20 documented as of this encounter
--- OUTSIDE RECORDS SUMMARY | 2024-02-14 15:17 | XMS_ITS | Encounter Summary ---
Author Organization [facility] [place] [address] Care Team Providers Care Tractor Operator Name Role Phone Pooja, Jossie Gabrielle GARCIA Primary Care Provider [phone] Reason for Visit * Reason Onset Date Comments Medication Refill 10/04/2021 Encounter Details Date Type Department Care Team (Late st Contact Info) Description 10/04/2021 [place] [address] Geronimo Giron MD [facility] [place] [address] Open fracture of proximal end of right [...] encounter Miscellaneous Notes * Telephone Encounter - Ellen Williamson RN - 10/05/2021 1:04 PM EDT Medication Refill Request Surgery/Injury/Provider: 09/28/21 ORIF HUMERAL SHAFT FX. (WRVU 12.12) - Right MODIFIER: 3.5MM LCP PERIARTICULAR PROXIMAL HUMERUS PLATE SET SYNTHES - Right MODIFIER LOCKING SMALL FRAGMENT SYNTHES ?? Medication being requested: Oxycodone Query: Last refill or Original Rx: Seen within 30 days (if no, than when): Follow Up 10/11/21 How is this medication being used currently: patient hs been taking one tablet every 4 to 6 hours.. Patient has been moving fingers more. And icing, they are still puffy But hand feels better Some bruising still present. Most of her pain is in the biceps. Pain level 5 /10 Bowel concerns: patient did have a bm Other pain medications used and how: Tylenol Yes Gabapentin No Naproxen No OTHER enoxaparin Medication [...] Requested Prescription to be sent electronically to [facility] (location). Prescription prepped and pended for Dr. Parish Giron (provider) review. The patient knows how to contact orthopaedics if any further questions or concerns occur. Ellen Williamson RN [facility] [place] documented in this encounter Plan of Treatment Upcoming Encounters Date Type Department Care Team (Late st Contact Info) Description 02/21/2024 1:40 PM EDT Office [place] [address] Kristi Caicedo APRN [facility] [address] documented as of this encounter Visit Diagnoses Diagnosis Open fracture of proximal end of right humerus, unspecified fracture morphology, initial encounter documented in this encounter Care Teams Tractor Operator Relationship Specialty Start Date End Date Jossie Patton APRN [address] [place] [address] PCP - General Family Medicine 04/19/20 documented as of this encounter
--- OUTSIDE RECORDS SUMMARY | 2024-02-14 15:17 | XMS_ITS | Encounter Summary ---
[facility] [place] [address] Care Team Providers Care Balancing Machine Set Up Worker Name Role Phone Jossie Patton APRN Primary Care Provider [phone] Reason for Visit * Auth/Cert Specialty Diagnoses / Procedures Referred By Savannah ashton Referred To Contact Diagnoses Humerus fracture fx humerus ORIF Procedures ELIZABETHI Madelaine Jenkins MD [facility] [place] [address] [facility] Referral ID Status Reason Start Date Expiration Date Visits Re quested Visits Authorized [id number] 1 1 Encounter Details Date Type Department Care Team (Late st Contact Info) Description 09/28/2021 5:20 PM EDT Anesthesia Event [place] [address] Bobby Collazo MD [facility] [place] [address] Kayla Ramos MD [facility] [place] [address] Anesthesia Record Procedure Summary Procedure Name Responsible Anesthesiologist Anesthesia Start Time Anesthesia Stop Time ORIF HUMERAL SHAFT FX. (WRVU 12.12) (Right: Arm) Bobby Collazo MD 09/28/21 1720 09/28/21 2015 Events Date Time Event Comment 09/28/2021 1520 1720 Start 1739 AN Verify 1739 An Start Data 1747 An Induction 1749 An Intubation 1758 Anesthesia Ready 1841 Handoff Intra-procedure anesthesia care was transferred after review of the patient's history, current anesthetic/surgical status and procedural plan, anticipated issues and expected post-operative course (including disposition.) Breanna Hanley CRNA 1929 Handoff Intra-procedure anesthesia care was transferred after review of the patient's history, current anesthetic/surgical status and procedural plan, anticipated issues and expected post-operative course (including disposition.) 2008 Extubation/LMA Out 2011 an stop data 2014 Recovery or ICU Handoff Edita ent care was transferred to the destination unit staff after review of the patient's medical history, current anesthetic/surgical status and plan, according to the Provider Handoff Checklist. 2014 Stop Meds Name Total Midazolam 2 mg fentaNYL 100 mcg IV Lidocaine 100 mg Propofol 200 mg Rocuronium 50 mg PHENYLephrine 120 mcg Ondansetron 8 mg Glycopyrrolate 0.8 mg Succinylcholine 100 mg ceFAZolin 2 g Dexmedetomidine 16 mcg Propofol INF 260.17 mg Neostigmine 5 mg HYDROmorphone 2 mg/mL 2 mg Lactated Ringers 800 mL * Agents Name O2 Air N2O Sevoflurane (et) * Blood No blood administrations on file. Lines, Drains, and Airways Type Details Placement Removal (RETIRED) Peripheral IV Line - Single Lumen 09/28/21; 1129; cephalic vein (lateral side of arm), left; [id number] catheter system; Ultrasound Guidance; 20 gauge, 1 in length, 3/4 in length; Gabrielle Ahumada RN VAS; distraction, intradermal injection, tolerated well, appears comfortable; 0 09/28/21 1129 by Dilan Ahumada RN Incision 09/28/21; 1825; Left , anterior, upper; arm; vertical 09/28/21 182 by Radhika Franks, PRISCILA ETT Mask Ventilation: Adjunct (2); ETT Type: Cuffed, Oral; ETT Size: 7.5 mm; Indirect: Video; Notes: Asleep, Pre-O2, Cricoid Pressure, RSI, Stylette; Attempts: 1; Laryngoscopy Grade: 1; ETT Placement Verified By: Capnometry, Visual; Secured at Teeth: 20 cm; Inserted by: JON Jimenez; Removal Date: 09/28/21; Removal Time: 200809/28/211748 by Breanna Hanley CRNA 09/28/212008 by Simon Mercado CRNA documented in this encounter Social History Tobacco Use Types Packs/Day Years Used Date Smoking Tobacco: Every Day Cigarettes Smokeless Tobacco: Never Comments:marijuana occasiona lly Sex and Gender Information Value Date Recorded Sex Assigned at Not on file Gender Identity Not on file Sexual Orientation Not on file documented as of this encounter OR Notes * Anesthesia Postprocedure Evaluation - Bobby Collazo MD - 09/28/2021 8:28 PM EDT Department of Anesthesiology Post-procedure Note Patient: Guzman Jean Procedure Summary Date: 09/28/21 Room / Location: [facility] OR [address] [place] [address] MAIN OR Anesthesia Start: 1719 Anesthesia Stop: 2014 Procedures: ORIF HUMERAL SHAFT FX. (WRVU 12.12) (Right Arm) MODIFIER: 3.5MM LCP PERIARTICULAR PROXIMAL HUMERUS PLATE SET SYNTHES (Right Arm) MODIFIER LOCKING SMALL FRAGMENT SYNTHES (N/A Arm) Diagnosis: (Right humeral shaft fracture) Surgeons: Geronimo Giron MD Responsible Provider: Bobby Collazo MD Anesthesia Type: general ASA Status: 3 All Anesthesia Providers: Anesthesiologist: Getachew Cramer MD; Emely Rubin MD; Bobby Collazo MD MAGNETIC TESTER: Simon Mercado CRNA; Breanna Hanley CRNA Vitals Value Taken Time BP 142/78 09/28/21 2205 Temp 36.7 ??C (98.1 ??F) 09/28/21 2145 Pulse 86 09/28/21 2205 Resp 22 09/28/21 2205 SpO2 96 % 09/28/21 2214 Pain Level 7 09/28/21 2120 Vitals shown include unvalidated device data. Patient Location: PACU/[facility] Level of Consciousness: Awake and Alert Pain Management: Satisfactory Analgesia PONV: None Cardiovascular Status: At Baseline and Hemodynamically Stable Respiratory Status: At Baseline and Room Air Postoperative Fluid Status: Intravascular EUvolemia Possible Anesthetic Complications: NONE apparent at time of evaluation Final Primary Anesthesia Type: General (The anesthetic type performed was the same as planned.) Comments: Bobby Collazo MD * Anesthesia Preprocedure Evaluation - Getachew Cramer MD - 09/28/2021 3:16 PM EDT Pre-Anesthesia Evaluation for: Guzman Jean a 46 y.o. female. Procedure(s): ORIF HUMERAL SHAFT FX. (WRVU 12.12) MODIFIER: 3.5MM LCP PERIARTICULAR PROXIMAL HUMERUS PLATE SET SYNTHES MODIFIER LOCKING SMALL FRAGMENT SYNTHES Patient Active Problem List Diagnosis Date Noted ? ? Vitamin D deficiency (25vitD 14.5 on 05/16/13-> 29 on 07/07/19) 05/21/2020 ??? 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 Humerus fracture 09/26/2021 ??? Adult BMI 40.0-44.9 kg/sq m 05/23/2020 ??? Vitamin B12 deficiency (used to take B12 shots previously) 05/23/2020 ??? Hypertension 05/21/2020 ??? History of tobacco use 05/21/2020 ??? Fatty liver determined by biopsy 11/25/2009; mildly elevated LFTs 05/21/2020 ??? Chronic nonintractable headache 06/28/2017 ??? Tobacco use in , childbirth, or the puerperium, antepartum 02/22/2014 ??? Episodic mood disorder 05/07/2013 ??? Depression complicating , antepartum 05/01/2013 ??? Insulin overdose with S/I in 2013, insulin was then given under supervision 05/01/2013 ??? Suicidal ideation 05/01/2013 ??? Hyperlipidemia 09/04/2011 ??? Low back pain 11/14/2010 ??? Polycystic ovaries with irregular periods and hirsutism s/p bilateral tubal ligation 01/21/2008 ??? Type 2 diabetes mellitus 02/15/2005 No past medical history on file. No past surgical history on file. Social History Tobacco Use ??? Smoking status: Current Every Day Smoker Packs/day: 1.00 Types: Cigarettes ??? Smokeless tobacco: Never Used ??? Tobacco comment: marijuana occasionally Substance Use Topics ??? Alcohol use: Not on file Social History Substance and Sexual Activity Drug Use Not on file Allergies Allergen Reactions ??? Lisinopril Medications: MAR and/or home medications have been reviewed. Physical Exam: Preprocedure Vitals Current as of 09/28/21 1516 BP: 119/69 Pulse: Resp: 18 SpO2: 94 Temp: 36.7 ??C (98.1 ??F) Height: 152.4 cm (5') (09/26/21) Weight: 95.3 kg (210 lb) (09/26/21) BMI: 41.01 IBW: 45.5 kg (100 lb 4.9 oz) Last edited 09/28/21 1145 by MM Airway Assessment: Mallampati: II TM distance: >3 FB Neck ROM: full Cardiovascular Assessment: Rhythm: regular Rate: normal Pulmonary Assessment: breath sounds clear to auscultation Dental Assessment: - normal exam Misc Assessment: Last Filed Perioperative Cognitive Screening None Anesthesia Plan: ASA 3 general, with a(n) intravenous induction Addendum 09/28/2021 (MD Bela): 46yo for R humerus fx repair. Fell down stairs about 1 week ago. Failed attempt at non-operative mgmt. PMH notable for morbid obesity, DM2, smoker, HTN, HLD. Surgeon requests us to not place pre-op PNB. Risks/options d/w patient. She requests to proceed with GA+ rescue block if necessary. Of note, pt does describe baseline paresthesias in R hand (denies LE neuropathy sx's) Region - Other Informed Consent: Anesthetic plan and risks discussed with patient. Plan discussed with MAGNETIC TESTER. Anesthesia Screening documented in this encounter Plan of Treatment Upcoming Encounters Date Type Department Care Team (Late st Contact Info) Description 02/21/2024 1:40 PM EDT Office [place] [address] Kristi Caicedo APRN [facility] [address] [place] [address] documented as of this encounter Visit Diagnoses Not on filedocumented in this encounter Administered Medications Inactive Administered Medications - up to 3 most recent administrations Medication Order MAR Action Action Date Dose Rate Site ceFAZolin (Ancef) 1 g in dextrose 5% 50 mL infusion Intravenous, PRN, Starting on Edwina 09/28/21 at 1750, Until Edwina 09/28/21 at 2014, Administer over 30 Minutes, Anesthesia Intra-op Given 09/28/2021 5:50 PM EDT 2 g dexmedetomidine (Precedex) (4 mcg/mL) bolus injection (Anesthsia) Intravenous, PRN, Starting on Edwina 09/28/21 at 1829, Until Edwnia 09/28/21 at 2014, Anesthesia Intra-op, Routine Given 09/28/2021 7:35 PM EDT 12 mcg Given 09/28/2021 6:29 PM EDT 4 mcg fentaNYL (pf) (50 mcg/mL) multi-dose injection Intravenous, PRN, Starting on Edwina 09/28/21 at 1827, Until Edwina 09/28/21 at 2014, Anesthesia Intra-op, Routine Given 09/28/2021 6:27 PM EDT 100 mcg glycopyrrolate (Robinul) (0.2 mg/mL) multi-dose injection Intravenous, PRN, Starting on Edwina 09/28/21 at 1931, Until Edwina 09/28/21 at 2014, Anesthesia Intra-op, Routine Given 09/28/2021 7:31 PM EDT 0.8 mg HYDROmorphone (Dilaudid) (2 mg/mL) multi-dose injection solution Intravenous, PRN, Starting on Edwina 09/28/21 at 1934, Until Edwina 09/28/21 at 2014, Anesthesia Intra-op, Routine Given 09/28/2021 8:20 PM EDT 1 mg Given 09/28/2021 7:45 PM EDT 0.5 mg Given 09/28/2021 7:34 PM EDT 0.5 mg lactated ringers infusion Intravenous, CONTINUOUS PRN, Starting on Edwina 09/28/21 at 1739, Until Edwina 09/28/21 at 2014, Anesthesia Intra-op New Bag 09/28/2021 5:39 PM EDT lidocaine (pf) (Xylocaine) (20 mg/mL) 2% injection syringe Intravenous, PRN, Starting on Edwina 09/28/21 at 1747, Until Edwina 09/28/21 at 2014, Anesthesia Intra-op, Routine Given 09/28/2021 5:47 PM EDT 100 mg midazolam (pf) (Versed) (1 mg/mL) multi-dose injection Intravenous, PRN, Starting on Edwina 09/28/21 at 1747, Until Edwina 09/28/21 at 2014, Anesthesia Intra-op, Routine Given 09/28/2021 5:47 PM EDT 2 mg neostigmine (Bloxiver) (1 mg/mL) injection Intravenous, PRN, Starting on Edwina 09/28/21 at 1931, Until Edwina 09/28/21 at 2014, Anesthesia Intra-op, Routine Given 09/28/2021 7:31 PM EDT 5 mg ondansetron (pf) (Zofran) (2 mg/mL) injection Intravenous, PRN, Starting on Edwina 09/28/21 at 1934, Until Edwina 09/28/21 at 2014, Anesthesia Intra-op, Routine Given 09/28/2021 7:34 PM EDT 8 mg PHENYLephrine in NS (PF) (ANNIA-SYNEPHRINE) 0.8 mg/10 mL (80 mcg/mL) multi-dose injection Syrg Intravenous, PRN, Starting on Edwina 09/28/21 at 1801, Until Edwina 09/28/21 at 2014, Anesthesia Intra-op, Routine Given 09/28/2021 6:01 PM EDT 120 mcg propofoL (Diprivan) (10 mg/mL) infusion Intravenous, CONTINUOUS PRN, Starting on Edwina 09/28/21 at 1833, Until Edwina 09/28/21 at 2014, Anesthesia Intra-op, Routine New Bag 09/28/2021 6:33 PM EDT 30 mcg/kg/min 17.154 mL/hr propofoL (Diprivan) 10 mg/mL bolus injection (Anesthesia) Intravenous, PRN, Starting on Edwina 09/28/21 at 1747, Until Edwina 09/28/21 at 2014, Anesthesia Intra-op Given 09/28/2021 5:47 PM EDT 200 mg rocuronium (Zemuron) (10 mg/mL) multi-dose injection Intravenous, PRN, Starting on Edwina 09/28/21 at 1754, Until Edwina 09/28/21 at 2014, Anesthesia Intra-op, Routine Given 09/28/2021 5:54 PM EDT 50 mg succinylcholine (Anectine;Quelicin) (20 mg/mL) injection Intravenous, PRN, Starting on Edwina 09/28/21 at 1747, Until Edwina 09/28/21 at 2014, Anesthesia Intra-op, Routine Given 09/28/2021 5:47 PM EDT 100 mg documented in this encounter Care Teams Balancing Machine Set Up Worker Relationship Specialty Start Date End Date Jossie Patton, AUTOMATIC PAD MAKING MACHINE OPERATOR [address] [place] [address] PCP - General Family Medicine 04/19/20 documented as of this encounter
--- OUTSIDE RECORDS SUMMARY | 2024-02-14 15:17 | XMS_ITS | Encounter Summary ---
Author Organization [facility] [place] [address] Care Team Providers Care Alligator Shear Operator Name Role Phone Jossie Patton APRN Primary Care Provider [phone] Reason for Visit * Reason Comments Medication Refill Encounter Details Date Type Department Care Team (Late st Contact Info) Description 08/12/2021 Refill [place] [id number] Elijah Oneal MD [facility] [place] [address] [place] [address] Social History Tobacco Use Types Packs/Day Years [...] 1:40 PM EDT Office [place] [address] Kristi Caicedo APRN [facility] [place] [address] documented as of this encounter Visit Diagnoses Not on filedocumented in this encounter Care Teams Alligator Shear Operator Relationship Specialty Start Date End Date Jossie Patton APRN [address] [place], [place] [id number] PCP - General Family Medicine 04/19/20 documented as of this encounter
--- OUTSIDE RECORDS SUMMARY | 2024-02-14 15:17 | XMS_ITS | Encounter Summary ---
[place] [address] Care Team Providers Care Shipping Lead Person Name Role Phone Pooja, Jossie Gabrielle GARCIA Primary Care Provider [phone] Reason for Visit * Auth/Cert Specialty Diagnoses / Procedures Referred By Savannah ashton Referred To Contact Diagnoses Humerus fracture fx humerus ORIF Procedures ELIZABETHI Madelaine Jenkins MD [facility] [place] [address] [facility] Referral ID Status Reason Start Date Expiration Date Visits Re quested Visits Authorized [id number] 1 1 Encounter Details Date Type Department Care Team (Late st Contact Info) Description 09/28/2021 2:23 PM EDT - 09/28/2021 4:24 PM EDT Surgery [place] [address] Geronimo Giron MD [facility] DR [place] [address] ORIF HUMERAL SHAFT FX. (WRVU 12.12) Social History Tobacco Use Types Packs/Day Years Used Date Smoking Tobacco: Every Day Cigarettes Smokeless Tobacco: Never Comments:marijuana occasiona lly Sex and Gender Information Value Date Recorded Sex Assigned at Not on file Gender Identity Not on file Sexual Orientation Not on file documented as of this encounter Last Filed Vital Signs Vital Sign Reading Time Taken Comments Blood Pressure 102/57 09/28/2021 3:44 PM EDT Pulse 90 09/26/2021 4:48 PM EDT Temperature 36.7 ??C (98.1 ??F) 09/28/2021 3:44 PM ED T Respiratory Rate 16 09/28/2021 3:44 PM EDT Oxygen Saturation 95% 09/28/2021 3:44 PM EDT Inhaled Oxygen Concentration - - Weight - - Height - - Body Mass Index - - documented in this encounter Discharge Summaries * Addy Butcher PA - 09/29/2021 2:20 PM EDT Discharge Summary Patient Name: Guzman Jean Patient Age: 46 y.o. Language: Lithuanian Race: White Ethnicity: Not nor Admit date: 09/26/2021 Discharge date and time: 09/29/2021 Attending Physician: Madelaine Jenkins MD Discharge Physician: Madelaine Jenkins MD Follow-up Recommendations for Providers: See discharge instructions for additional details. Future Appointments Date Time Provider Department Center 10/18/2021 7:45 AM [facility] DX ROOM 1 Xray [facility] Rad 10/18/2021 8:30 AM Geronimo Giron MD [facility] ORTH 3A [facility] Inpatient Provider Contact Information: Madelaine Jenkins MD Orthopedics: [phone] After hours and weekends, call [facility] Language Pathologist, , and have the Orthopedic resident paged. [...] 14.5 on 05/16/13-> 29 on 07/07/19) ??? Neville-induced hypothyroidism and transient hypercalcemia (TSH 4.4H on [...] 4. Diet: NPO ?? Isamar Hoff APRN [facility] Endocrinology Diabetes Management Vital Signs at Discharge: [...] who have questions please contact the health rn progressive care that requested your imaging first. Electronically signed by: Wanda Mcnamara MD, [facility] ([phone]), at 09/27/2021 11:19 AM Pending Studies and Lab Data at Discharge: [...] Daily. 10 mg Refills: 0 Blood-Glucose Meter [facility] USE TO CHECK BLOOD GLUCOSE TWICE DAILY [...] 3 insulin needles (disposable) 31 gauge x /16 Ndle 1 each by [facility].(Non-Drug; Combo Route) route daily. 1 each Quantity: [...] 2,000 mg Refills: 0 naloxone 4 mg/actuation Redmon Commonly known as: Narcan SPRAY 1 SPRAY [...] HYDROcodone-acetaminophen 5-325 mg Tab Commonly known as: [employer] ibuprofen 400 mg Tab Commonly known as: [...] bowel movement. You can also take an klyc-zxr-xtwqioh medication, Miralax if needed to combat constipation. [...] skin and wound problems. Call your doctor ([phone]) if you develop: 1. Fever greater than [...] 1. You will have follow-up appointments at [facility] as indicated in Future Appointment and Orders. [...] Time Provider Department Center 10/18/2021 7:45 AM [facility] DX ROOM 1 Xray [facility] 10/18/2021 8:30 AM Geronimo Giron MD [facility] ORTH 3A [facility] If you have questions or concerns: Saturday [...] Provider Department Dept Phone 10/18/2021 7:45 AM [facility] DX ROOM 1 XRay at [facility] Arrive at: [facility] [phone] Please go to [facility] ([facility]). 10/18/2021 8:30 AM Geronimo Giron MD Orthopaedics at [facility] Arrive at: [facility] [phone] Primary Care Provider: Jossie Patton APRN [phone] Discharge References/Attachments None documented in this encounter [...] bowel movement. You can also take an kzhg-dnt-jtxtnnq medication, Miralax if needed to combat constipation. [...] skin and wound problems. Call your doctor ([phone]) if you develop: Fever greater than 100.5 [...] 1. You will have follow-up appointments at [facility] as indicated in Future Appointment and Orders. [...] Time Provider Department Center 10/18/2021 7:45 AM [facility] DX ROOM 1 Xray [facility] Rad 10/18/2021 8:30 AM Geronimo Giron MD [facility] ORTH 3A [facility] If you have questions or concerns: Saturday [...] as needed. 06/27/2021 naloxone (Narcan) 4 mg/actuation Welcome, Non-Aerosol SPRAY 1 SPRAY INTO BOTH NOSTRILS [...] mouth Daily. 07/20/2019 blood sugar diagnostic strips (infirst HealthcareTouch Verio test strips) Strip USE TO CHECK [...] gauge x 3/16 Needle 1 each by [facility].(Non-Drug; Combo Route) route daily. 90 each 3 [...] Patient discharged to home with family. * Luis Eduardo Graham PT - 09/29/2021 2:07 PM EDT Physical [...] 12.12) performed by Geronimo Giron MD at [facility] MAIN OR Social History: lives with her [...] (PT): None Thank you for this consult. LUIS EDUARDO GRAHAM, PT Pager: [phone] Physical Therapy Inpatient Rehabilitation Department Time IN [...] outlined in this evaluation. * Isamar Hoff, CHIEF DEPUTY - 09/29/2021 8:45 AM EDT Images from [...] carbs. Administered for 25 carbs yesterday for lucia that we looked up and discovered was [...] this monring. She was provided with new Zeusstronic infusion set and I watched as she managed to place set on her abdomen and load tubing to restart her pump. She should have no issues continuing this at home. She was provided with a new Dexcom CGM with a transmitter for discharge. Agrees to referral to consumer educator to work on improving carb counting skills upon discharge PLAN 1. Lantus: 35 units today 2. Lispro for correction q 4 hours using ISF 20 for BG > 140 3. Diet: carb controlled 60/60/75 4. Patient will discharge to home diabetes regimen with referral placed for diabetic education to work on carb counting skills. Isamar Hoff APRN [facility] Endocrinology Diabetes Management Pager [phone] minutes of this 35 minute visit [...] 14.5 on 05/16/13-> 29 on 07/07/19) ??? Neville-induced hypothyroidism and transient hypercalcemia (TSH 4.4H on [...] (102-147)/(57-94) Intake/Output Summary (Last 24 hours) at 09/29/2021 0628 Last data filed at 09/28/20212002 Gross per [...] able to extend and abduct thumb, strong rehabilitation services director (m/u/r/AIN/PIN intact) Brisk capillary refill distally, fingers [...] follow-up appointment) Dressing: xeroform, gauze, abd, webril, WING - sling for comfort Antibiotics: Periop Ancef Marlo Mercado MD 09/29/2021 Future Appointments Date Time Provider Department Center 10/18/2021 7:45 AM [facility] DX ROOM 1 MH Xray [facility] Rad 10/18/2021 8:30 AM Geronimo Giron MD [facility] ORTH 3A [facility] Associated attestation - Geronimo Giron MD - [...] ? Vitamin D deficiency (25vitD 14.5 on 1/18/14-> 29 on 07/07/19) ??? Neville-induced hypothyroidism and transient hypercalcemia (TSH 4.4H on [...] able to extend and abduct thumb, strong rehabilitation services director Brisk capillary refill distally, fingers warm/well-perfused, radial [...] follow-up appointment) Dressing: xeroform, gauze, abd, webril, WING - sling for comfort Antibiotics: Periop Ancef Estefani Washington MD 09/28/2021 Future Appointments Date Time Provider Department Center 10/18/2021 7:45 AM [facility] DX ROOM 1 MH Xray [facility] Rad 10/18/2021 8:30 AM Geronimo Giron MD [facility] ORTH 3A [facility] * Megan Bansal RN - 09/28/2021 10:34 PM EDT Patient arrived to floor via bed from PACU. Patient A&O x 3, lungs clear, heart rate regular. 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 Patient has a dressing to R arm, [...] set appropriately for patient. VSS.R arm in wing wrap, unable to assess pulses. Brisk cap refill, positive sensation and movement. 2139 - Report called to PRISCILA Guzman. Dr Estefani Dewey at bedside. 2149 - [...] Vraylar in pt bin, form signed by BASILIO. DOUG getting increasingly dusky, painful and swollen throught [...] eating 4. Diet: NPO Isamar Hoff APRN [facility] Endocrinology Diabetes Management Pager [phone] 20 minutes of this 35 minute visit [...] 14.5 on 05/16/13-> 29 on 07/07/19) ??? Neville-induced hypothyroidism and transient hypercalcemia (TSH 4.4H on [...] 14.5 on 05/16/13-> 29 on 07/07/19) ??? Neville-induced hypothyroidism and transient hypercalcemia (TSH 4.4H on [...] right humerus today, time unknown. NPO at [facility] for surgery. Pt with type II DM, [...] on with ADL's Surveillance [continuous indirect monitoring]: Masimo, Purposeful Rounding, Nurse Knowledge Exchange at Bedside, Bed Alarm Set * Nu Wei RN - 09/26/2021 9:47 PM EDT Assumed care of patient from [id number]. Patient's pain better controlled in that time. Patient endorsing tingling to fingertips. Patient denies chest pain, SOB, nausea. Patient seen by provider around 2129. Nighttime medications given to patient. Patient transferred to room 322 for safety r/t history of sleep walking. Report given to PRISCILA Caruso. Nu Wei RN * Nerissa Eason RN - 09/26/2021 6:35 PM EDT Pt reporting 02/05 pain, Team paged [phone] for Admission orders and order reconciliation. PCR obtained. Pt tearful/anxious stating she would like to leave. Evy Crystal paged to bedside, per MD unable to see pt at this time. * Nerissa Eason RN - 09/26/2021 5:04 PM EDT Pt [facility] for R humerus fx s/p fall last [...] 14.5 on 05/16/13-> 29 on 07/07/19) ??? Neville-induced hypothyroidism and transient hypercalcemia (TSH 4.4H on [...] anxiety ??? Insulin overdose with S/I in 2014, insulin was then given under supervision ??? [...] Ax/M/R/U distributions Motor intact (5/5) wrist flexion/extension, rehabilitation services director, EPL, AIN, IO Brisk capillary refill distally [...] with Down Syndrome who lives with pt multimedia manager.). Current Living Arrangements: home/apartment/condo. Accessibility Concerns:pt denies [...] plan. Office of Care Management Surgery Team General Activities Therapist Cary GusevPRISCILA [email or web address] Pager #[phone] * Initial Assessments - Dahiana García, OT [...] 14.5 on 05/16/13-> 29 on 07/07/19) ??? Neville-induced hypothyroidism and transient hypercalcemia (TSH 4.4H on [...] room air. Pain: tolerable Skin: R UE wing wrapped and in standard arm sling. Joshi [...] only Total Minutes, Occupational Therapy: 12 (12:48-13:05 (evamadou)) 2017 OT Evaluation Code Rationale: Diagnosis & [...] measurable assessment of functional outcome. Dahiana García, MILANR Pager [phone] Occupational Therapy Rehabilitation Department * Brief Op Note - Jasper Moreno MD - 09/28/2021 9:31 PM EDT Brief Operative Note Patient Name: Guzman Jean : [id number] MR#: [id number] Case Date: 09/28/2021 Surgeon: Surgeon(s) and Role: [...] Giron MD - 09/28/2021 6:25 PM EDT [facility] Operative Note Patient Name: Guzman Jean : [id number] MR#: [id number] Case Date: 09/28/2021 Surgeon: Surgeon(s) and Role: [...] intermuscular septum using blunt dissection and a Pate elevator. The lateral antebrachial cutaneous nerve was [...] Xeroform 4 x 4's, webril, and an Wing wrap. She was awakened and extubated in [...] EDT Office of Care Management Initial Assessment Simon A Ana Cristina, TIE TAMPER reviewed record and discussed patient with Care Team. Source of Information: Team, bedside nurse, medical record, and Patient TIE TAMPER Introduced self/reviewed role; services accepted. Reason for Hospitalization: fell and broke right humerus, needs surgery Covid Vaccination Status: 1st, 2nd & booster Last COVID test: Lab Results Component Value Date [id number] Not Detected 09/26/2021 Past medical History: No past medical history on file. Hospitalizations Within the Past 30 Days: no previous admission in last 30 days Current Decision-Making Capacity: Self Advance Care Planning: Attempt Cardiopulmonary Resuscitation - Inpatient <no information> -Advanced Directive: No, declines If AD's have not been completed Malcom Alonzo would be surrogate decision maker per [place] surrogate decision making law. (Only good for 180 days) Any patient receiving care at [facility] must abide by [place] law. The hierarchy for surrogate decision making [...] (i) The agent with financial power of commercial real estate attorney or a conservator appointed in accordance [...] with Down Syndrome who lives with pt multimedia manager.). Current Living Arrangements: home/apartment/condo. Accessibility Concerns:pt denies accessibility concerns. Resource / Environmental Concerns: Resource/Environmental Concerns: none Current DME: none Home Address confirmed as: [address] [address] Social & Family Supports: All names listed [...] being provided currently: outpatient psychiatric care (Psychiatric CHIEF DEPUTY Aleah Wick) Behavioral Health History: BPD, PTSD, [...] Insurance: N/A Prescription Coverage: Yes Preferred Pharmacy: [facility]/pharmacy #[id number] [place] [facility] [address] [place] Status: Patient is a : No Primary Care Provider: Jossie Patton APRN [phone] Patient/Caregiver Goals of Treatment: Pts goal is [...] is primary caregiver for - placed through [facility] program; While she is [...] taking walks both on/off the unit. Plan: TIE TAMPER will remain available to pt for ongoing support throughout her admission and continue to check in with pt post op. A member of the Care Management team will continue to monitor progress, follow for continuity of care and assist with transition of care planning. MARIEL Mahoney Pager: [phone] * Consult Note - Isamar Hoff APRN [...] management and to provide a review of fpc diabetes care. RNs are checking BGs and Ryan is administering her own meal time bolus and correction from her pump. Diabetes History: Guzman Jean has a medtronic pump with humalog, takes Trulicity 1.5 mg weekly (last dose last Saturday) and administers Tresiba U 200 50 units daily. She is a patient of the [facility] endocrinology clinic. Current outpatient diabetes regimen: Diabetes [...] Hoff APRN Endocrinology Diabetes Management Service Pager: [phone] 70 minutes of this 80 minute visit [...] 1:40 PM EDT Office Visit Endocrinology at [facility] [place] [address] Kristi Caicedo APRN [facility] [place] [address] [place] [address] documented as of this encounter Procedures Procedure [...] shaft fracture Open Fixatn Mid Humerus Fracture (86789) 09/28/2021 5:39 PM EDT Right humeral shaft [...] 3:23 AM EDT SCAN, PERIPHERAL BLOOD Routine 3:23 AM EDT HEMOGRAM Routine 09/27/2021 3:23 [...] 09/26/2021 7:45 PM EDT RAPID COVID-19 PCR ([facility]) Routine 09/26/2021 5:10 PM EDT documented in this encounter Results * (ABNORMAL) POCT Glucose (09/29/2021 11:27 AM EDT) [facility] Signature Glucose, POC 232(H) 65 - 199 mg/dL [facility] Comment: Supplemental ranges: <140 mg/dL before meals <180 mg/dL all other times of the day Blood 09/29/2021 11:2 7 AM EDT 09/29/2021 11:27 AM EDT Madelaine Jenkins MD POINT OF CARE TEST O RDERABLES [facility] [place] [address] * (ABNORMAL) POCT Glucose (09/29/2021 8:21 AM EDT) Glucose, POC 263(H) 65 - 199 mg/dL [facility] Comment: Supplemental ranges: <140 mg/dL before meals <180 mg/dL all other times of the day Blood 09/29/2021 8:21 AM EDT 09/29/2021 8:21 AM EDT Madelaine Jenkins MD POINT OF CARE TEST O RDERABLES Performing Organization Address [facility] Co de Phone Number [facility] [place] [address] * (ABNORMAL) POCT Glucose (09/29/2021 6:39 AM EDT) Glucose, POC 243(H) 65 - 199 mg/dL [facility] Comment: Supplemental ranges: <140 mg/dL before meals <180 mg/dL all other times of the day Blood 09/29/2021 6:39 AM EDT 09/29/2021 6:39 AM EDT Madelaine Jenkins MD POINT OF CARE TEST O RDERANIYA Performing Organization Address [facility] Co de Phone Number [facility] [place] [address] * (ABNORMAL) POCT Glucose (09/29/2021 5:27 AM EDT) Glucose, POC 243(H) 65 - 199 mg/dL [facility] Comment: Supplemental ranges: <140 mg/dL before meals <180 mg/dL all other times of the day Blood 09/29/2021 5:27 AM EDT 09/29/2021 5:27 AM EDT Madelaine Jenkins MD POINT OF CARE TEST O RDERABLES [facility] [place] [address] * (ABNORMAL) Differential, Automated (09/29/2021 3:37 AM EDT) Neutrophil % 70.2 % [facility] Neutrophil Absolute 9.54(H) 1.70 - 6.10 x10(3)/ L [facility] Lymph % 20.7 % [facility] Lymphocytes Abs 2.8 0.9 - 3.2 x10(3)/ L [facility] Monocyte % 8.0 % [facility] Monocyte Abs 1.1(H) 0.3 - 0.9 x10(3)/[facility] Eos % 0.5 % [facility] Eosinophils Abs 0.1 0.0 - 0.4 x10(3)/[facility] Basophil % 0.3 % [facility] Baso Absolute 0.0 0.0 - 0.1 x10(3)/ L [facility] Immature Gran % 0.30 % [facility] Comment: Immature granulocytes(IG's)percentage and absolute count will include metamyelocytes, myelocytes, and promyelocytes. Blood smears from CBCs yielding IG's will be scanned manually for concordance. If this scan disagrees with the automated IG or if promyelocytes are noted, a manual differential will be performed. Immature Gran Absolute 0.04 0.00 - 0.04 x10(3)/ L [facility] Blood 09/29/2021 3:37 AM EDT 09/29/2021 4:14 AM EDT Narrative Resulting Agency Comment Spec In Lab Demian Whitehead MD HEMATOLOGY ORDERABL ES Performing Organization Address [facility]/ZIP Co de Phone Number [facility] [place] [address] * (ABNORMAL) Hemogram (09/29/2021 3:37 AM EDT) [facility] White Blood Cell 13.6(H) 4.0 - 9.5 x10(3)/mc L [facility] Red Blood Cell 3.89(L) 4.00 - 5.21 x10(6)/mc L [facility] Hemoglobin 12.5 11.7 - 15.5 g/dL [facility] Hematocrit 36.4 35.7 - 45.8 % [facility] Mean Cell Volume 93.6 82.6 - 94.4 fL [facility] Mean Cell Hemoglobin 32.1(H) 27.1 - 32.0 pg [facility] Mean Cell Hemoglobin Concentration 34.3 31.7 - 35.0 g/dL [facility] Platelet 268 145 - 357 x10(3)/[facility] RDW Standard Deviation 41.5 37.0 - 46.0 [facility] RDW coefficient of variation 12.0 11.5 - 14.1 % [facility] Mean Platelet Volume 9.6 7.6 - 12.9 fL [facility] NRBC% auto 0.0 % [facility] NRBC Absolute 0.000 0.000 - 0.000 x10(3)/ L [facility] Blood 09/29/2021 3:37 AM EDT 09/29/2021 4:14 AM EDT Narrative Resulting Agency Comment Spec In Lab Demian Whitehead MD HEMATOLOGY ORDERABL ES [facility] [place] [address] * (ABNORMAL) Basic Metabolic Panel (non-fasting) (09/29/2021 3:37 AM EDT) [facility] Glucose 225(H) 65 - 199 mg/dL [facility] Comment:Diabetes: >=200 mg/d L plus symptoms Blood Urea Nitrogen 7(L) 8 - 18 mg/dL [facility] Creatinine 0.56(L) 0.70 - 1.20 mg/dL [facility] Sodium 137 135 - 145 mmol/L [facility] Potassium 4.6 3.5 - 5.0 mmol/L [facility] Comment: result rechecked- Please note: ??Patients with WBC >100,000 may have falsely elevated Potassium levels. ??For accurate Potassium quantification in these patients send serum separator tube (gold top) for subsequent determinations. ??Contact the Clinical Chemistry Laboratory if there are any questions. Chloride 101 98 - 107 mmol/L [facility] Carbon Dioxide 23 22 - 31 mmol/L [facility] Anion Gap 13 5 - 15 mmol/L [facility] Calcium 8.9 8.5 - 10.5 mg/dL [facility] Est Glomerular Filtration Rate 113 >=60 mL/min/1. 73 m?? [facility] Comment: This patient? s estimated [...] In Lab Madelaine Jenkins MD CHEMISTRY ORDERABLES [facility] [place] [address] * XR Humerus Right (Generic) (09/28/2021 10:00 [...] who have questions please contact the health rn progressive care that requested your imaging first. ? Narrative 09/28/2021 10:07 PM EDT EXAMINATION: XR [...] patients who have questions please contactthe health rn progressive care that requested your imaging first. Madelaine Jenkins MD IMG DX ORDERABLES * XR Fluoro No Rad <1Hr - OR Use (09/28/2021 9:44 PM EDT) Narrative Dicom, Auditing User - 09/28/2021 9:45 PM EDT This exam is auto-finalizing. No interpretation was done. Madelaine Jenkins MD IMG FLUORO ORDERABLE S * POCT Glucose (09/28/2021 7:05 PM EDT) Glucose, POC 146 65 - 199 mg/dL [facility] Comment: Supplemental ranges: <140 mg/dL before meals <180 mg/dL all other times of the day Blood 09/28/2021 7:05 PM EDT 09/28/2021 7:05 PM EDT Madelaine Jenkins MD POINT OF CARE TEST O RDERANIYA [facility] [place] [address] * POCT Glucose (09/28/2021 3:44 PM EDT) Glucose, POC 183 65 - 199 mg/dL [facility] Comment: Supplemental ranges: <140 mg/dL before meals <180 mg/dL all other times of the day Blood 09/28/2021 3:44 PM EDT 09/28/2021 3:44 PM EDT Madelaine Jenkins MD POINT OF CARE TEST O RDERABLES [facility] [place] [address] * POCT Glucose (09/28/2021 11:21 AM EDT) Glucose, POC 174 65 - 199 mg/dL [facility] Comment: Supplemental ranges: <140 mg/dL before meals <180 mg/dL all other times of the day Blood 09/28/2021 11:2 1 AM EDT 09/28/2021 11:21 AM EDT Madelaine Jenkins MD POINT OF CARE TEST O RDERABLES Performing Organization Address City/[facility]/ZIP Co de Phone Number [facility] [place] [address] * POCT Glucose (09/28/2021 5:42 AM EDT) Glucose, POC 91 65 - 199 mg/dL [facility] Comment: Supplemental ranges: <140 mg/dL before meals <180 mg/dL all other times of the day Blood 09/28/2021 5:42 AM EDT 09/28/2021 5:42 AM EDT Madelaine Jenkins MD POINT OF CARE TEST O RDERABLES Performing Organization Address City/[facility]/ZIP Co de Phone Number [facility] [place] [address] * (ABNORMAL) Differential, Automated (09/28/2021 3:34 AM EDT) Neutrophil % 47.8 % [facility] Neutrophil Absolute 5.29 1.70 - 6.10 x10(3)/mc L [facility] Lymph % 41.3 % [facility] Lymphocytes Abs 4.6(H) 0.9 - 3.2 x10(3)/mc L [facility] Monocyte % 8.8 % [facility] Monocyte Abs 1.0(H) 0.3 - 0.9 x10(3)/mc L [facility] Eos % 1.2 % [facility] Eosinophils Abs 0.1 0.0 - 0.4 x10(3)/mc L [facility] Basophil % 0.4 % [facility] Baso Absolute 0.0 0.0 - 0.1 x10(3)/mc L [facility] Immature Gran % 0.50 % [facility] Comment: Immature granulocytes(IG's)percentage and absolute count will include metamyelocytes, myelocytes, and promyelocytes. Blood smears from CBCs yielding IG's will be scanned manually for concordance. If this scan disagrees with the automated IG or if promyelocytes are noted, a manual differential will be performed. Immature Gran Absolute 0.05(H) 0.00 - 0.04 x10(3)/mc L [facility] Blood 09/28/2021 3:34 AM EDT 09/28/2021 3:57 AM EDT Narrative Resulting Agency Comment Spec In Lab Nathen Crystal MD HEMATOLOGY ORDERABLE S [facility] [place] [address] * (ABNORMAL) Hemogram (09/28/2021 3:34 AM EDT) White Blood Cell 11.0(H) 4.0 - 9.5 x10(3)/ L [facility] Red Blood Cell 3.90(L) 4.00 - 5.21 x10(6)/mc L [facility] Hemoglobin 12.8 11.7 - 15.5 g/dL [facility] Hematocrit 37.3 35.7 - 45.8 % [facility] Mean Cell Volume 95.6(H) 82.6 - 94.4 fL [facility] Mean Cell Hemoglobin 32.8(H) 27.1 - 32.0 pg [facility] Mean Cell Hemoglobin Concentration 34.3 31.7 - 35.0 g/dL [facility] Platelet 260 145 - 357 x10(3)/mc L [facility] RDW Standard Deviation 42.8 37.0 - 46.0 fL [facility] RDW coefficient of variation 12.4 11.5 - 14.1 % [facility] Mean Platelet Volume 9.4 7.6 - 12.9 fL [facility] NRBC% auto 0.0 % [facility] NRBC Absolute 0.000 0.000 - 0.000 x10(3)/mc L [facility] Blood 09/28/2021 3:34 AM EDT 09/28/2021 3:57 AM EDT Narrative Resulting Agency Comment Spec In Lab Nathen Crystal MD HEMATOLOGY ORDERABLE S [facility] [place] [address] * (ABNORMAL) Basic Metabolic Panel (non-fasting) (09/28/2021 3:34 AM EDT) Glucose 111 65 - 199 mg/dL [facility] Comment:Diabetes: >=200 mg/d L plus symptoms Blood Urea Nitrogen 10 8 - 18 mg/dL [facility] Creatinine 0.51(L) 0.70 - 1.20 mg/dL [facility] Sodium 137 135 - 145 mmol/L [facility] Potassium 3.3(L) 3.5 - 5.0 mmol/L [facility] Comment: Please note: ??Patients with WBC >100,000 may have falsely elevated Potassium levels. ??For accurate Potassium quantification in these patients send serum separator tube (gold top) for subsequent determinations. ??Contact the Clinical Chemistry Laboratory if there are any questions. Chloride 105 98 - 107 mmol/L [facility] Carbon Dioxide 20(L) 22 - 31 mmol/L [facility] Anion Gap 12 5 - 15 mmol/L [facility] Calcium 8.9 8.5 - 10.5 mg/dL [facility] Est Glomerular Filtration Rate 117 >=60 mL/min/1. 73 m?? [facility] Comment: This patient? s estimated [...] Jenkins MD CHEMISTRY ORDERABLES Performing Organization Address [facility] Co de Phone Number [facility] [place] [address] * (ABNORMAL) POCT Glucose (09/27/2021 11:47 PM EDT) Glucose, POC 230(H) 65 - 199 mg/dL [facility] Comment: Supplemental ranges: <140 mg/dL before meals <180 mg/dL all other times of the day Blood 09/27/2021 11:4 7 PM EDT 09/27/2021 11:47 PM EDT Madelaine Jenkins MD POINT OF CARE TEST O RDERABLES Performing Organization Address [facility]/ZIP Co de Phone Number [facility] [place] [address] * (ABNORMAL) POCT Glucose (09/27/2021 7:58 PM EDT) Glucose, POC 260(H) 65 - 199 mg/dL [facility] Comment: Supplemental ranges: <140 mg/dL before meals <180 mg/dL all other times of the day Blood 09/27/2021 7:58 PM EDT 09/27/2021 7:58 PM EDT Madelaine Jenkins MD POINT OF CARE TEST O RDERABLES Performing Organization Address City/[facility]/ZIP Co de Phone Number [facility] [place] [address] * POCT Glucose (09/27/2021 2:39 PM EDT) Glucose, POC 125 65 - 199 mg/dL [facility] Comment: Supplemental ranges: <140 mg/dL before meals <180 mg/dL all other times of the day Blood 09/27/2021 2:39 PM EDT 09/27/2021 2:39 PM EDT Madelaine Jenkins MD POINT OF CARE TEST O KRZYSZTOF Performing Organization Address [facility]/ZIP Co de Phone Number [facility] [place] [address] * (ABNORMAL) Hemoglobin A1c (09/27/2021 12:27 PM EDT) Pathologist [facility] Hemoglobin A1c 11.9(H) 4.3 - 5.6 % [facility] Comment: Reference Range: 4.3 - [...] Mellitus, Diabetes Care 2013; 36: Suppl. 1, R47-96 Estimated Average Glucose 295 mg/dL [facility] Comment: eAG equivalents for HbA1c [...] into estimated average glucose values. ??Diabetes Care 2008:31(8):1617-5145. Blood 09/27/2021 12:2 7 PM EDT 09/27/2021 12:31 PM EDT Narrative Resulting Agency Comment Spec In Lab Madelaine Jenkins MD CHEMISTRY ORDERABLES Performing Organization Address [facility] de Phone Number [facility] [place] [address] * POCT Glucose (09/27/2021 11:29 AM EDT) Glucose, POC 147 65 - 199 mg/dL [facility] Comment: Supplemental ranges: <140 mg/dL before meals <180 mg/dL all other times of the day Blood 09/27/2021 11:2 9 AM EDT 09/27/2021 11:29 AM EDT Madelaine Jenkins MD POINT OF CARE TEST O RDERABLES Performing Organization Address [facility] de Phone Number [facility] [place] [address] * XR Humerus Right (Generic) (09/27/2021 9:09 [...] who have questions please contact the health rn progressive care that requested your imaging first. ? Electronically signed by: Wanda Mcnamara MD, [facility] ([phone]), at 09/27/2021 11:19 AM Narrative 09/27/2021 11:19 [...] patients who have questions please contactthe health rn progressive care that requested your imaging first. Electronically signed by: Wanda Mcnamara MD, [facility]([phone]), at 09/27/2021 11:19 AM Madelaine Jenkins MD IMG DX ORDERABLES * POCT Glucose (09/27/2021 7:30 AM EDT) Glucose, POC 114 65 - 199 mg/dL [facility] Comment: Supplemental ranges: <140 mg/dL before meals <180 mg/dL all other times of the day Blood 09/27/2021 7:30 AM EDT 09/27/2021 7:30 AM EDT Madelaine Jenkins MD POINT OF CARE TEST O RDERABLES Performing Organization Address [facility]/ZIP Co de Phone Number [facility] [place] [phone] * POCT Glucose (09/27/2021 6:48 AM EDT) Glucose, POC 128 65 - 199 mg/dL [facility] Comment: Supplemental ranges: <140 mg/dL before meals <180 mg/dL all other times of the day Blood 09/27/2021 6:48 AM EDT 09/27/2021 6:48 AM EDT Madelaine Jenkins MD POINT OF CARE TEST O RDERABLES [facility] [place] [address] * POCT Glucose (09/27/2021 3:24 AM EDT) Glucose, POC 139 65 - 199 mg/dL [facility] Comment: Supplemental ranges: <140 mg/dL before meals <180 mg/dL all other times of the day Blood 09/27/2021 3:24 AM EDT 09/27/2021 3:24 AM EDT Madelaine Jenkins MD POINT OF CARE TEST O RDERABLES Performing Organization Address [facility]/ZIP Co de Phone Number [facility] [place] [address] * Type and Screen Validity (09/27/2021 3:23 AM EDT) T&S only valid at [facility] Comment:This Type and Screen result is only valid at the [facility] Blood 09/27/2021 3:23 AM EDT 09/27/2021 4:08 AM EDT Narrative Resulting Agency Comment Spec In Lab Nathen Crystal MD BLOOD BANK LAB ORDER YOON Performing Organization Address [facility] de Phone Number [facility] [place] [address] * Scan, Peripheral Blood (09/27/2021 3:23 AM EDT) Plat estimate Normal [facility] RBC Morphology Abnormal [facility] Ovalocytes 1-5 /HPF [facility] Blood 09/27/2021 3:23 AM EDT 09/27/2021 4:00 AM EDT Narrative Resulting Agency Comment Spec In Lab Nathen Crystal MD HEMATOLOGY ORDERABLE S Performing Organization Address [facility] Co de Phone Number [facility] [place] [address] * ABORH Recheck Status (09/27/2021 3:23 AM EDT) ABORH Recheck Order Order Placed [facility] ABORH Type Recheck Complete [facility] Blood 09/27/2021 3:23 AM EDT 09/27/2021 4:08 AM EDT Narrative Resulting Agency Comment Spec In Lab Nathen Crsytal MD BLOOD BANK LAB ORDER YOON Performing Organization Address City/[facility]/ZIP Co de Phone Number [facility] [place] [address] * Antibody screen (09/27/2021 3:23 AM EDT) Ab Screen Interp Negative [facility] Expires at [id number] on: 09/30/2021 [facility] Blood 09/27/2021 3:23 AM EDT 09/27/2021 4:08 AM EDT Narrative Resulting Agency Comment Spec In Lab Nathen Crystal MD BLOOD BANK LAB ORDER YOON Performing Organization Address City/[facility]/ZIP Co de Phone Number [facility] [place] [address] * ABO/Rh Typing (09/27/2021 3:23 AM EDT) Pathologist [facility] ABORH Type A Neg [facility] Blood 09/27/2021 3:23 AM EDT 09/27/2021 4:08 AM EDT Narrative Resulting Agency Comment Spec In Lab Nathen Crystal MD BLOOD BANK LAB ORDER YOON Performing Organization Address City/[facility] Co de Phone Number [facility] [place] [address] * (ABNORMAL) Differential, Automated (09/27/2021 3:23 AM EDT) Neutrophil % 49.7 % [facility] Neutrophil Absolute 5.50 1.70 - 6.10 x10(3)/mc L [facility] Lymph % 40.5 % [facility] Lymphocytes Abs 4.5(H) 0.9 - 3.2 x10(3)/mc L [facility] Monocyte % 7.5 % [facility] Monocyte Abs 0.8 0.3 - 0.9 x10(3)/mc L [facility] Eos % 1.3 % [facility] Eosinophils Abs 0.1 0.0 - 0.4 x10(3)/[facility] Basophil % 0.5 % [facility] Baso Absolute 0.1 0.0 - 0.1 x10(3)/ L [facility] Immature Gran % 0.50 % [facility] Comment: Immature granulocytes(IG's)percentage and absolute count will include metamyelocytes, myelocytes, and promyelocytes. Blood smears from CBCs yielding IG's will be scanned manually for concordance. If this scan disagrees with the automated IG or if promyelocytes are noted, a manual differential will be performed. Immature Gran Absolute 0.06(H) 0.00 - 0.04 x10(3)/[facility] Blood 09/27/2021 3:23 AM EDT 09/27/2021 4:00 AM EDT Narrative Resulting Agency Comment Spec In Lab Nathen Crystal MD HEMATOLOGY ORDERABLE S Performing Organization Address City/State/[facility] Co de Phone Number [facility] [place] [address] * (ABNORMAL) Hemogram (09/27/2021 3:23 AM EDT) White Blood Cell 11.1(H) 4.0 - 9.5 x10(3)/ L [facility] Red Blood Cell 4.24 4.00 - 5.21 x10(6)/ L [facility] Hemoglobin 13.4 11.7 - 15.5 g/dL [facility] Hematocrit 39.5 35.7 - 45.8 % [facility] Mean Cell Volume 93.2 82.6 - 94.4 fL [facility] Mean Cell Hemoglobin 31.6 27.1 - 32.0 pg [facility] Mean Cell Hemoglobin Concentration 33.9 31.7 - 35.0 g/dL [facility] Platelet 275 145 - 357 x10(3)/ L [facility] RDW Standard Deviation 42.5 37.0 - 46.0 [facility] RDW coefficient of variation 12.3 11.5 - 14.1 % [facility] Mean Platelet Volume 9.7 7.6 - 12.9 [facility] NRBC% auto 0.0 % [facility] NRBC Absolute 0.000 0.000 - 0.000 x10(3)/mc L [facility] Blood 09/27/2021 3:23 AM EDT 09/27/2021 4:00 AM EDT Narrative Resulting Agency Comment Spec In Lab Nathen Crystal MD HEMATOLOGY ORDERABLE S Performing Organization Address [facility]/ZIP Co de Phone Number [facility] [place] [address] * APTT (09/27/2021 3:23 AM EDT) Partial Thromboplastin Time 27 25 - 37 sec [facility] Comment: The PTT is NOT appropriate for heparin monitoring. Use the Anti-Xa level for heparin monitoring (HEP UFH) or LMWH monitoring (HEP LMW). A PTT less than 37 seconds generally indicates adequate hemostasis. Blood 09/27/2021 3:23 AM EDT 09/27/2021 4:00 AM EDT Narrative Resulting Agency Comment Spec In Lab Madelaine Jenkins MD HEMATOLOGY ORDERABLE S Performing Organization Address City/[facility]/ZIP Co de Phone Number [facility] [place] [address] * Prothrombin Time (09/27/2021 3:23 AM EDT) Prothrombin Time 10.6 9.4 - 12.5 sec [facility] International Normalization Ratio 0.9 [facility] Comment: An INR <2.0 indicates [...] Lab Madelaine Jenkins MD HEMATOLOGY ORDERABLE S [facility] [place] [address] * (ABNORMAL) Basic Metabolic Panel (non-fasting) (09/27/2021 3:23 AM EDT) Glucose 138 65 - 199 mg/dL [facility] Comment:Diabetes: >=200 mg/d L plus symptoms Blood Urea Nitrogen 10 8 - 18 mg/dL [facility] Creatinine 0.50(L) 0.70 - 1.20 mg/dL [facility] Sodium 139 135 - 145 mmol/L [facility] Potassium 3.8 3.5 - 5.0 mmol/L [facility] Comment: Please note: ??Patients with WBC >100,000 may have falsely elevated Potassium levels. ??For accurate Potassium quantification in these patients send serum separator tube (gold top) for subsequent determinations. ??Contact the Clinical Chemistry Laboratory if there are any questions. Chloride 107 98 - 107 mmol/L [facility] Carbon Dioxide 20(L) 22 - 31 mmol/L [facility] Anion Gap 12 5 - 15 mmol/L [facility] Calcium 8.9 8.5 - 10.5 mg/dL [facility] Est Glomerular Filtration Rate 118 >=60 mL/min/1. 73 m?? [facility] Comment: This patient? s estimated [...] Jenkins MD CHEMISTRY ORDERABLES Performing Organization Address [facility] Co de Phone Number [facility] [place] [address] * (ABNORMAL) POCT Glucose (09/26/2021 7:45 PM EDT) [facility] Glucose, POC 223(H) 65 - 199 mg/dL [facility] Comment: Supplemental ranges: <140 mg/dL before meals <180 mg/dL all other times of the day Blood 09/26/2021 7:45 PM EDT 09/26/2021 7:45 PM EDT Madelaine Jenkins MD POINT OF CARE TEST O RDERABLES Performing Organization Address [facility] Co de Phone Number [facility] [place] [address] * COVID-19 PCR (09/26/2021 5:10 PM EDT) [facility] SARS-CoV-2 RNA (Rapid) Not Detected Not Detected [facility] Comment: This result should be [...] using the Simplexa COVID-19 Direct Assay by [employer] as authorized by the FDA issued Emergency [...] Department of Pathology and Laboratory Medicine at [facility], certified under the Clinical Laboratory Improvement [...] fact sheets at the following FDA website: https://www.fda.gov/medical-devices/xwrfptgmkki-wcbxkfa-5633-edxxs-02-saxvtmoyr- use-a ddmwsamkglmaf-jgnkmlh-ltgezhv/elnbj-gnexlojrque-pgoa SARS-CoV-2 Source [employer] Swab [facility] Nasopharyngeal Swab 09/27/19 5:10 PM EDT 09/26/2021 7:19 PM EDT Comment:Symptoms->Surveillan ce Narrative Resulting Agency Comment Spec In Lab Madelaine Jenkins MD MICROBIOLOGY - GENER AL ORDERABLES [facility] [address] [place] [address] documented in this encounter Visit Diagnoses Not on filedocumented in this encounter Admitting Diagnoses Diagnosis Humerus [...] on Sat09/28/21 at 0015, Until Discontinued, Routine Given 09/28/2021 [...] link provided on this medication record., Routine vancomycin (Vancocin) injection ONCE PRN, Starting on Sat09/28/21 at 1923, Until Sat09/29/21 at 1826, Intra-Operative (Intra-Procedure), Routine Given 09/28/2021 7:23 PM EDT 1 g 10- Arm Upper (Right) documented in this encounter Active and Recently [...] Arlene Feldman LPN)2331 (Given - Provider: Tom Fernandez RN) 0553 (Given - Provider: Tom Fernandez RN)1139 (Given - Provider: Wanda Wolfe RN)1708 [...] Discontinued, Routine 0816 (Given - Provider: Arlene Felmdan LPN) 0809 (Given - Provider: Wanda Wolfe [...] Routine 1407 (Given - Provider: Wanda Wolfe RN)1738 (JUN Hold - Provider: Admin Adt - Reason: Transfer to a Procedural area)2230 (JUN Unhold - Provider: Admin Adt)2248 (Given - Provider: Megan Bansal, RN) 08 (Given - Provider: Wanda Wolfe RN)1500 (Due - Provider: Admin Adt) clonazePAM (KlonoPIN) tablet 1 mg 1 mg, Oral, NIGHTLY, First dose on Sat09/26/21 at 2100, Until Discontinued, DO NOT SPLIT, CRUSH OR OPEN, Routine 2027 (Given - Provider: Tom Fernandez RN) 1738 (JUN Hold - Provider: Admin Adt [...] - Reason: Transfer to a Procedural area)2230 ([facility] Unhold - Provider: Admin Adt) 08 (Given - Provider: Wanda Wolfe RN) docusate [...] Megan Bansal RN - Reason: Patient/family refused)2230 ([facility] Unhold - Provider: Admin Adt) 08 (Not Given - Provider: Wanda Wolfe RN - Reason: Patient/family refused) enoxaparin (Lovenox) (40 mg/0.4 mL) subcutaneous injection 40 mg 40 mg, Subcutaneous, NIGHTLY, First dose on Sat09/26/21 at 2100, Until Discontinued, Routine 2030 (Given - Provider: Tom Fernandez RN) 173 ([facility] Hold - Provider: Admin Adt - Reason: Transfer to a Procedural area)223 ([facility] Unhold - Provider: Admin Adt)224 (Given - Provider: Megan Bansal RN) famotidine (Pepcid) tablet 20 mg 20 mg, Oral, DAILY, First dose on Sat09/26/21 at 2000, Until Discontinued 0816 (Given - Provider: Arlene Feldman LPN) 0809 (Given - Provider: Wanda Wolfe RN)173 ([facility] Hold - Provider: Admin Adt - Reason: Transfer to a Procedural area)223 ([facility] Unhold - Provider: Admin Adt) 0823 (Given [...] RN)1400 (Given - Provider: Wanda Wolfe RN)173 ([facility] Hold - Provider: Admin Adt - Reason: Transfer to a Procedural area)2230 ([facility] Unhold - Provider: Admin Adt)2250 (Given - [...] DAILY, First dose (after last modification) on [email or web address]] 09/30/21 at 0900, Until Discontinued, Please check blood sugar prior to administration and hold if blood sugar is less than 90, Routine insulin lispro (HumaLOG;Admelog) (100 unit/mL) subcutaneous injection vial 1-6 Units(Linked Group 1) 1-6 Units, Subcutaneous, 3 TIMES DAILY BEFORE MEALS, First dose on [facility] 09/28/21 at 1130, Until Discontinued, CORRECTION BOLUS [...] Wolfe RN)1708 (Given - Provider: Wanda Wolfe RN)173 (JUN Hold - Provider: Admin Adt - Reason: Transfer to a Procedural area)223 (JUN Unhold - Provider: Admin Adt) 0640 (Given - Provider: Khalida Toro RN)1200 (Given - Provider: Wanda Wolfe RN) labetaloL (Normodyne) tablet 200 mg 200 mg, Oral, 2 TIMES DAILY, First dose on Sat09/26/21 at 2100, Until Discontinued, Routine 0814 (Given - Provider: Arlene Feldman LPN)2028 (Given - Provider: Tom Fernandez RN) 08 (Given - Provider: Wanda Wolfe RN)173 [...] (Patch Removed - Provider: Arlene Feldman LPN) 0900 (Patch Removed - Provider: Wanda Wolfe RN)173 [...] Adt)224 (Given - Provider: Megan Bansal RN) rosuvastatin (Crestor) tablet 20 mg 20 mg, [...] Megan Bansal RN - Reason: Patient/family refused)2230 (MAR Unhold - Provider: Admin Adt) 08 [...] Fernandez, RN)171 (Given - Provider: Wanda Wolfe RN)1738 (MAR [...] Bolus (Units))., Medication Name: lispro (Humalog) 1738 ([facility] Hold - Provider: Admin Adt - Reason: Transfer to a Procedural area)2230 ([facility] Unhold - Provider: Admin Adt) ipratropium-albuteroL (Duoneb) 0.5 mg-3 mg(2.5 mg base)/3 mL nebulizer solution 3 mL 3 mL, Nebulization, 4 TIMES DAILY PRN, Starting on Sat09/26/21 at 1905, Until Sat09/29/21 at 1826, Wheezing, Routine 1738 ([facility] Hold - Provider: Admin Adt - Reason: Transfer to a Procedural area)2230 ([facility] Unhold - Provider: Admin Adt) lidocaine (Xylocaine) 1% (10 mg/mL) injection 3 mg 3 mg (0.3 mL), Subcutaneous, ONCE PRN, 1 dose, Starting on Sat09/26/21 at 1908, Until Sat09/29/21 at 1826, for discomfort with PIV insertion, Routine 1738 ([facility] Hold - Provider: Admin Adt - Reason: Transfer to a Procedural area)2230 ([facility] Unhold - Provider: Admin Adt) melatonin tablet 3 mg 3 mg, Oral, NIGHTLY PRN, Starting on Sat09/26/21 at 1910, Until Sat09/29/21 at 1826, Sleep, Routine 2028 (Given - Provider: Tom Fernandez RN) 1738 ([facility] Hold - Provider: Admin Adt - Reason: Transfer to a Procedural area)2230 ([facility] Unhold - Provider: Admin Adt) ondansetron ODT [...] Fernandez RN) 0553 (Given - Provider: Tom Fernandez RN)1400 (Given - Provider: Wanda Wolfe RN)173 (JUN Hold - Provider: Admin Adt - Reason: Transfer to a Procedural area)2043 (JUN Unhold - Provider: Yancy Maria, PRISCILA)205 (Given - Provider: Yancy Maria RN) 0055 (Given - Provider: Megan Bansal, PRISCILA)0233 (See Alternative - Provider: Megan Bansal RN)0824 (Given - Provider: Wanda Wolfe RN) oxyCODONE (Roxicodone) tablet 5-10 mg(Linked Group 5) [...] Fernandez RN)2344 (See Alternative - Provider: Tom M Jim, RN) 0553 (See Alternative - Provider: Tom Fernandez RN)1400 (See Alternative - Provider: Wanda Wolfe RN)173 (JUN Hold - Provider: Admin Adt - Reason: Transfer to a Procedural area)2043 (JUN Unhold - Provider: Yancy Maria RN)2049 (See Alternative - Provider: Yancy Maria RN) 005 (See Alternative - Provider: Megan Bansal RN)0233 (Given - Provider: Megan Bansal RN [...] area)2230 (JUN Unhold - Provider: Admin Adt) vancomycin (Vancocin) injection (CANCELED) ONCE PRN, Starting on Sat09/28/21 at 1923, Until Sat09/29/21 at 1826, Intra-Operative (Intra-Procedure), Routine 192 (Given - Provider: Geronimo Giron MD) Linked [...] PRN, Starting on Sat09/28/21 at 1948, Until Sat09/28/21 at 2220, Pain, For Mild to Moderate [...] Routine documented in this encounter Care Teams Shipping Lead Person Relationship Specialty Start Date End Date Jossie Patton APRN [address] [place] [address] PCP - General Family Medicine 04/19/20 documented as of this encounter
--- OUTSIDE RECORDS SUMMARY | 2024-02-14 15:17 | XMS_ITS | Encounter Summary ---
Author Organization [facility] [place] [address] Care Team Providers Care Hr Administrator Name Role Phone Jossie Patton APRN Primary Care Provider Encounter Details Date Type Department Care Team (Late st Contact Info) Description 10/04/2021 Tele[place] [address] Jossie Roblero, RN Social History Tobacco Use Types Packs/Day Years Used Date Smoking Tobacco: Every Day Cigarettes Smokeless Tobacco: Never Comments:marijuana occasiona lly Sex and Gender Information Value Date Recorded Sex Assigned at Not on file Gender Identity Not on file Sexual Orientation Not on file documented as of this encounter Miscellaneous Notes * Telephone Encounter - Jossie Roblero RN - 10/04/2021 1:14 PM EDTSummary: calling for 1pm appointment Left vague message for patient to check myDH and that I will ask secretaries to reschedule our 1pm appointment today for a later date as patient has not signed on to telehealth appt. Nor were they able to answer the phone. documented in this encounter Plan of Treatment Upcoming Encounters Date Type Department Care Team (Late st Contact Info) Description 02/21/2024 1:40 PM EDT Office [place] [phone] Kristi Caicedo APRN [facility] [place] [address] documented as of this encounter Visit Diagnoses Not on filedocumented in this encounter Care Teams Hr Administrator Relationship Specialty Start Date End Date Jossie Patton APRN [address] [place] [address] PCP - General Family Medicine 04/19/20 documented as of this encounter
--- OUTSIDE RECORDS SUMMARY | 2024-02-14 15:17 | XMS_ITS | Encounter Summary ---
[place] [address] Care Team Providers Care Yarn Rewinder Name Role Phone Jossie Patton APRN Primary Care Provider [phone] Reason for Referral * Consultation (Routine) - Closed Specialty Diagnoses / Procedures Referred By Savannah t Referred To Contact Endocrinology Diagnoses Uncontrolled type 2 diabetes mellitus with hyperglycemia Isamar Hoff APRN [facility] [place] [address] [place] [address] [facility] [address] [place] [id number] Referral ID Status Reason Start Date Expiration Date V isits Requested Visits Authorized [id number] Closed Consult, Test & Treat 09/29/2021 09/29/2022 1 1 Encounter Details Date Type Department Care Team (Late st Contact Info) Description 09/29/2021 Orders [place] [address] Isamar Hoff APRN [facility] [place] [address] Uncontrolled type 2 diabetes mellitus with hyperglycemia [...] 1:40 PM EDT Office [place] [address] Kristi Caicedo APRN [facility] [place] [address] Scheduled Referrals Name Type Priority Associated Diagnoses Orde r Schedule Referral to Diabetic Education Outpatient Referral Routine Uncontrolled type 2 diabetes mellitus with hyperglycemia Ordered: 09/29/2021 documented as of this encounter Visit Diagnoses Diagnosis Uncontrolled type 2 diabetes mellitus with hyperglycemia documented in this encounter Care Teams Yarn Rewinder Relationship Specialty Start Date End Date Jossie Patton APRN [address] [place] [address] PCP - General Family Medicine 04/19/20 documented as of this encounter
--- OUTSIDE RECORDS SUMMARY | 2024-02-14 15:17 | XMS_ITS | Encounter Summary ---
Author Organization [facility] Address [facility] [place] [address] Care Team Providers Care Biomass Facilitator Name Role Phone Jossie Patton APRN Primary Care Provider Reason for Referral * Consultation (Urgent) - Closed Specialty Diagnoses / Procedures Referred By Savannah ashton Referred To Contact Sleep Center Diagnoses Sleep disorder PT SEEN 08/29, STILL SLEEP WALKING WHICH RESULTED IN BROKEN ARM Aleah Wick APRN [address] [place] [address] [facility] [address] [place] [address] Referral ID Status Reason Start Date Expiration Date V isits Requested Visits Authorized [id number] Closed Consult, Test & Treat PCP Updated and/or Approved 09/19/2021 09/19/2022 6 6 Encounter Details Date Type Department Care Team (Late st Contact Info) Description 09/19/2021 Transcribe Orders eDH Incoming Referrals [phone] Aleah Wick APRN [address] [place] [address] Sleep disorder Social History Tobacco Use Types Packs/Day Years [...] 1:40 PM EDT Office [place] [address] Kristi Caicedo APRN [facility] [place] [address] Scheduled Referrals Name Type Priority Associated Diagnoses Orde r Schedule Referral to Sleep Disorders Center Outpatient Referral Routine Sleep disorder Ordered: 09/19/2021 documented as of this encounter Visit Diagnoses Diagnosis Sleep disorder Sleep disturbance, unspecified documented in this encounter Care Teams Biomass Facilitator Relationship Specialty Start Date End Date Jossie Patton APRN [address] [place] [address] PCP - General Family Medicine 04/19/20 documented as of this encounter
--- OUTSIDE RECORDS SUMMARY | 2024-02-14 15:17 | XMS_ITS | Encounter Summary ---
Author Organization [facility] [place] [address] Care Team Providers Care Shift Foreman Name Role Phone Jossie Patton APRN Primary Care Provider [phone] Encounter Details Date Type Department Care Team (Late st Contact Info) Description 09/13/2021 Telephone Sleep Center at [facility] [address] [place] [address] Gaby Olvera Social History Tobacco Use Types Packs/Day Years Used Date Smoking Tobacco: Every Day Cigarettes Smokeless Tobacco: Never Comments:marijuana occasiona lly Sex and Gender Information Value Date Recorded Sex Assigned at Not on file Gender Identity Not on file Sexual Orientation Not on file documented as of this encounter Miscellaneous Notes * Telephone Encounter - Nereida Mensah - 10/19/2021 9:16 AM EDT Wanda from PCP office called asking for status of sleep study, stated pt canceled and has not r/syet. Wanda wanted to inform sleep clinic that pt feel and broke her arm due to a sleep walking episode and needed surgery. Pt will call to r/s sleep study documented in this encounter Plan of Treatment Upcoming Encounters Date Type Department Care Team (Late st Contact Info) Description 02/21/2024 1:40 PM EDT Office [place] [phone] Kristi Caicedo APRN [facility] [place] [address] documented as of this encounter Visit Diagnoses Not on filedocumented in this encounter Care Teams Shift Foreman Relationship Specialty Start Date End Date Jossie Patton APRN [address] [place] [address] PCP - General Family Medicine 04/19/20 documented as of this encounter
--- OUTSIDE RECORDS SUMMARY | 2024-02-14 15:17 | XMS_ITS | Encounter Summary ---
[place] [address] Care Team Providers Care Scene And Lighting Design Lecturer Name Role Phone Jossie Patton APRN Primary Care Provider Reason for Referral * Diagnostic Test (Routine) - Closed Specialty Diagnoses / Procedures Referred By Contac t Referred To Contact Sleep Center Diagnoses KIMBERLEY (obstructive sleep apnea) Sleep walking Enuresis Insomnia, unspecified type Procedures Sleep Study Diagnostic PSG / Split Night PSG Rojelio Cancino DO [facility] [place] [address] [facility] [address] [place] [address] Referral ID Status Reason Start Date Expiration Date V isits Requested Visits Authorized [id number] Closed Specialty Service Requested 08/30/2021 08/30/2022 1 1 Reason for Visit * Consultation (Routine) - Closed Specialty Diagnoses / Procedures Referred By Contac t Referred To Contact Sleep Center Diagnoses Sleep disorder Jossie Patton APRN [address] [place] [address] [facility] [address] [place] [address] Referral ID Status Reason Start Date Expiration Date V isits Requested Visits Authorized [id number] Closed Consult, Test & Treat 06/28/2021 06/28/2022 6 6 Encounter Details Date Type Department Care Team (Latest Contact Info) Description 08/29/2021 2:30 PM EDT TH Visit (TeleHealth) Sleep Center at [address] [place] [address] Rojelio Cancino DO [facility] [place] [address] Sleep walking (Primary Dx); KIMBERLEY (obstructive sleep apnea); Enuresis; Insomnia, unspecified type Social History Tobacco Use Types Packs/Day Years Used Date Smoking Tobacco: Every Day Cigarettes Smokeless Tobacco: Never Comments:marijuana occasiona lly Sex and Gender Information Value Date Recorded Sex Assigned at Not on file Gender Identity Not on file Sexual Orientation Not on file documented as of this encounter Progress Notes * Rojelio Cancino DO - 08/29/2021 2:30 PM EDT Sleep Medicine Consultation/New Patient Note for Telemedicine Visit conducted via Telehealth platform because of ongoing public health emergency Patient Location: [facility] Patient is Located in at time of Visit: [place] Chief Complaint: sleep walk really bad HPI: Ms. Guzman Jean is a 46 y.o. female with history of bipolar disorder, borderline personality disorder, obesity, chronic insomnia, Diabetes, HTN, migraine headaches who is seen at the request of Jossie Patton APRN for advice regarding sleep walking. Here today for multiple sleep related concerns. It looks like she has been evaluated by sleep medicine at outside facililty. She had a sleep study completed which showed an AHI of 5 supine AHI of 8. Conservative measures were initiated. Her main concern is her sleep walking. She reports this is very frequent, almost nightly and has led to injuries including a broken ankle. She has locked deadbolts to make sure she isnt leaving the house. She has been on mulitple medications for sleep and currently on seroquel, gabapentin (takes entire dose at night (!) and clonazepam 1 mg at night, prazosin. Had been on multiple Z drugs but currently not on them. She takes flexeril 10 mg 3x a day. She also snores, reports enuresis. She describes a sensation where her body is paralyzed but still able to move and has trouble getting up and walking in the morning. Feels like her legs do not work correctly. This is when she reports the bed wetting. She reports talking a lot in her sleep. She thinks she is getting only about 3 hours of sleep. She has nightmares. Previously, she had been recommended sleep CBT-I. And reports that she did do CBT-I (including sleep logs) but didn't find it helpful. I do not have records of this. History of diabetes, blood sugars have been bad Flexeril 10 mg 3x day Snoring: yes Severity: loud Frequency: nightly Duration: 20 years or more. Observed Apneas: no Nocturnal Gasping: yes Nasal Obstruction: hx of septal deviation. Used to use a lot of nose spray Weight: 210 lbs is listed on chart Sleep Pattern: Location: home Bed/Recliner/Wedge: bed # of pillows under head: use 2 but has 18 pillows on bed Position: left side. Sometimes back Bedtime: used to go to bed around 9 p, wakes around 1a and cant go back to sleep. Latency: no trouble falling asleep Awakenings: wakes constantly Reason: unknown. Duration: trouble getting back to sleep. Wake time: wakes around 5 am usually. Rise time: up at that time. 430-5a Days off: same Patients estimate of total sleep time: 3-4 hours; Questionnaires: was not filled out Daytime Symptoms: Upon Awakening: feels fine. Ready to go Daytime fatigue/sleepiness: once in awhile she has daytime sleepy. Naps: sometimes, 15 minutes long. Never longer than 1 hour. Ready to go lately. Involuntary Dozing: yes. Can fall asleep without realizing she fell asleep. This is happening daily. Cognitive Symptoms: forgetfellness Driving: Difficulty with sleepiness and driving: no Close calls related to sleepiness: no Accidents related to sleepiness: no Sleep Review of Symptoms: Parasomnias: Sleep Walking: yes. Has fallen down. Has had injuries. Dream Enactment: no Bruxism: TMJ Motor: RLS: no PLMS: deferred Narcolepsy: Hallucinations: no Paralysis: yes? Has a hard time getting up and walking steady. Can fall down. Cataplexy: no Past/Childhood Sleep History: insomnia, sleep walking, had study done a little over a year ago Doug 5 Family History: Family history of sleep disorders: no Patient Active Problem List Diagnosis Code ??? Type 2 diabetes mellitus E11.9 ??? Polycystic ovaries with irregular periods and hirsutism s/p bilateral tubal ligation E28.2 ??? Low back pain M54.50 ??? Hyperlipidemia E78.5 ??? Depression, BPD, anxiety F32.A ??? Chronic nonintractable headache R51.9, G89.29 ??? Hypertension I10 ??? Insulin overdose with S/I in 2013, insulin was then given under supervision T38.3X1A ??? Suicidal ideation R45.851 ? ? Vitamin D deficiency (25vitD 14.5 on 05/16/13-> 29 on 07/07/19) E55.9 ??? 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 History of tobacco use Z87.891 ??? Fatty liver determined by biopsy 11/25/2009; mildly elevated LFTs K76.0 ??? Adult BMI 40.0-44.9 kg/sq m Z68.41 ??? Vitamin B12 deficiency (used to take B12 shots previously) E53.8 No past medical history on file. No past surgical history on file. Current Outpatient Medications Medication Sig Dispense Refill ??? humaLOG 100 unit/mL Solution INJECT 120-150 UNITS SUBCUTANEOUSLY DAILY IN INSULIN PUMP 150 mL 3 ??? glimepiride (AMARYL) 4 mg Tablet TAKE 1 TABLET BY MOUTH 2 TIMES DAILY. TO BE ABLE TO REDUCE INSULIN TO HALF DOSE OR TAPER DOWN INSTRUCTED 180 tablet 3 ??? Trulicity 1.5 mg/0.5 mL Pen Injector Inject 0.5 mLs subcutaneously once a week. 6 mL 3 ??? rosuvastatin (Crestor) 20 mg Tablet ??? busPIRone (Buspar) 10 mg Tablet Take 10 mg by mouth daily. ??? cloNIDine (Catapres) 0.2 mg Tablet Take 0.2 mg by mouth daily. ??? gabapentin (Neurontin) 300 mg Capsule Take 2,400 mg by mouth daily. ??? LORazepam (Ativan) 1 mg Tablet Take 1 mg by mouth daily. ??? QUEtiapine (SEROquel) 200 mg Tablet Take 400 mg by mouth daily. ??? labetaloL (Normodyne) 200 mg Tablet Take 200 mg by mouth Twice daily. ??? insulin needles, disposable, 31 gauge x 3/16 Needle 1 each by [facility].(Non- Drug; Combo Route) route daily. 90 each 3 ??? cariprazine (Vraylar) 3 mg Capsule Take 3 mg by mouth daily. ??? Insulin Tresiba FlexTouch U-200 200 unit/mL (3 mL) Insulin Pen Inject 30-60 Units subcutaneously nightly. Indications: type 2 diabetes mellitus 10 Syringe 3 ??? glucagon, Human Recombinant, (Glucagon Emergency Kit, human,) 1 mg Recon Soln Inject 1 mg into the muscle as needed. ??? acetaminophen (Tylenol) 325 mg Tablet Take 325-650 mg by mouth Every 4 hours as needed. ??? amLODIPine (Norvasc) 10 mg Tablet Take 10 mg by mouth Daily. ??? blood sugar diagnostic strips (OneTouch Verio test strips) Strip USE TO CHECK BLOOD GLUCOSE TWICE DAILY DX E11.9 ??? Blood-Glucose Meter (OneTouch Verio Flex meter) [facility] USE TO CHECK BLOOD GLUCOSE TWICE DAILY DX E11.9 ??? cholecalciferol, Vitamin D3, 50 mcg (2,000 unit) Capsule Take 1 tablet by mouth Daily. ??? cyclobenzaprine (Flexeril) 10 mg Tablet TAKE 1 TABLET BY MOUTH THREE TIMES A DAY NEEDED ??? irbesartan (AVAPRO) 150 mg Tablet Take 150 mg by mouth Daily. ??? hydrOXYzine (VISTARIL) 50 mg Capsule TAKE 1 TO 2 CAPSULES BY MOUTH EVERY DAY AT BEDTIME ??? ibuprofen (Advil;Motrin) 400 mg Tablet Take 400 mg by mouth Every 4 hours as needed. ??? lamoTRIgine (LaMICtal) 150 mg Tablet TAKE 1 TABLET BY MOUTH EVERY DAY IN THE MORNING ??? traMADoL (Ultram) 50 mg Tablet Take 50 mg by mouth Every 6 hours. ??? ranitidine (ZANTAC) 150 mg Tablet Take 300 mg by mouth Twice daily. ??? nicotine (NICODERM CQ) 21 mg/24 hr Patch 24 hr APPLY TO HAIRLESS SKIN DAILY, ROTATE SITES ??? metFORMIN (GLUCOPHAGE) 1,000 mg Tablet Take 2,000 mg by mouth daily. No current facility-administered medications for this visit. 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 excericise induced PSY: Depression: Bipolar depression and PTSD Anxiety: yes GI: GERD: yes : Nocturia: 1-2x a night MSK: Pain that interferes with sleep: no ALL: Environmental Allergies: seasonal Exam: MSE: Alert and appropriate: yes Oriented to person, place and time: yes Mood: good Affect: pleasant PE: General: awake alert, NAD. Speech is not overly rushed. She is answering questions appropriately. Self Reported Height: 5' Self Reported Weight: 210 lbs BMI based on self report: 41 Eyes: Conjunctival injection: clear Eyelid hooding: none ENT: MP: 3-4 Facial deformity: none Hard palate: normal Soft palate: low Gums and teeth: appears to have good dention Tongue: large Nares: patent Neck: submental fat present. Neck circumference appears large Pul: Respirations: regular, non-labored Neuro: Rest tremor in UE bilatearlly: none Musculoskeletal: Gait and stance: appears normal. Assessment: Ms. Guzman Jean is a 46 y.o. female who is seen to evaluate for sleep walking and insomnia. She is here today with multiple complaints. Sleep walking. I would avoid any Z-drugs. I am very surprised that she continues to sleep walk despite taking clonazepam at night. Possibly attributable to a sleep disrupting condition, one of which being sleep apnea. Previous study had showed a very borderline to mild sleep apnea about 1.5 years ago. There was no evidence of parasomnia on that sleep study. With her reported short sleep time, could be due to sleep deprivation. (Possible) sleep deprivation. I have no objective data to prove sleep deprivation, but could worsensleep walking. I am also concerned about a possible manic episode and have encouraged her to followup with psychiatry. Insomnia. She reports this to be quite severe and is unable to sleep without medication. Currently on seroquel and clonazepam at night which apparently is helping with the insomnia some as she cantgo without it. I think it may have additional therapuetic benefits in the setting of the bipolar disorder. I am hesitant to add any additional medication at this point as likely wont help current regimine. I would definitely recommend avoiding any of the z-drugs (ambien, lunesta, etc) due to the sleep walking and the possibility of making this worse or ellicit complex sleep behaviors. I did discuss CBT-I which would probably be the most helpful treatment available, but she was resistant as she h ad thought she may have completed this (I personally think it was probably just CBT and not necessarily specific for insomnia). She did ask about mirtazepine, which at low doses is potentially helpful for insomnia(?) but may have interactions, and with psychiatric comorbidities and the multiple agents she is on, would discourage it. I ultimately defer to psychiatry. Sleep apnea. I suspect she has sleep apnea which may be contributing to potentially all of her current symptoms. I would recommend re-evaluation with in-lab PSG at this point as she has worsening parasomnia activity. A trial of treatment for KIMBERLEY is also warranted with the comorbid conditions and symptoms. SHe does report involuntary dozing. This PSG will allow us to re-evaluate the sleep apnea aswell. The pathophysiology of, the reasons to treat and treatment options for KIMBERLEY were all reviewed with the patient today. Untreated obstructive sleep apnea presents a moderate risk of morbidity (ie hypertension etc). Sleep paralysis. Clinical picture is not consistent with narcolepsy. Symptoms are not necessarily sleep paralysis as she is getting up and walking and is more paresthesia than paralysis (although with difficulty). Nevertheless, maybe related to medication or sleep deprivation. Will follow. History provided by: the patient Records reviewed:reviewed previous PSG The patient confirms that study results can be sent to them via [facility]. If a home care company is required the following home care company is requested: no preference Recommendations: 1) Polysomnography - in-lab PSG with RBD montage. 2) Driving safety was reviewed with patient. If the patient feels too sleepy to drive he/she knows not to drive. 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 3) Sleep walking safety discussed. She is using locks on doors and bed is on bottom level. Clear debris from room. Remove sharp or potentially harmful/sharp objects. The patient indicates understanding of these issues and agrees with the plan. 4) No changes to current medications. Rojelio Cancino DO Consult: [id number]:___60 min consult with majority of time devoted to counseling or discussion OR ___Billing on elements with moderate complexity of decision making New patient: Total time of visit, 70 minutes, including face to face counseling, chart review and documentation. [id number]: ___Total time including face to face, chart review and documentation of 45-59 min OR ___Moderate level of medical decision making (ie 1 chr illness with exac, progression or side effects of treatment or 2+ stable chronic illnesses and moderate risk of morbidity) 32095: _x__Total time including face to face, chart review and documentation of 60-74min OR ___High level of medical decision making (ie 1 chr illness with severe exac, progression or side effects or 1 illness posing a threat to life or function and high risk of morbidity) documented in this encounter Plan of Treatment Upcoming Encounters Date Type Department Care Team (Late st Contact Info) Description 02/21/2024 1:40 PM EDT Office Visit [place] [address] Kristi Caicedo APRN [facility] [place] [address] Scheduled Orders Name Type Priority Associated Diagnoses Orde r Schedule Sleep Study Diagnostic PSG / Split Night Sleep Center Routine KIMBERLEY (obstructive sleep apnea) Sleep walking Enuresis Insomnia, unspecified type Expected: 08/30/2021, Expires: 08/29/2022 documented as of this encounter Visit Diagnoses Diagnosis Sleep walking- Primary Sleep arousal disorder KIMBERLEY (obstructive sleep apnea) Obstructive sleep apnea (adult) (pediatric) Enuresis Insomnia, unspecified type documented in this encounter Care Teams Scene And Lighting Design Lecturer Relationship Specialty Start Date End Date Jossie Patton APRN [address] [place] [address] PCP - General Family Medicine 04/19/20 documented as of this encounter
--- OUTSIDE RECORDS SUMMARY | 2024-02-14 15:18 | XMS_ITS | Encounter Summary ---
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 Name Role Phone Jossie Patton APRN Primary Care Provider [phone] Reason for Referral * Consultation (Routine) - Closed Specialty Diagnoses / Procedures Referred By Savannah ashton Referred To Contact Endocrinology Diagnoses Type 2 diabetes mellitus, uncontrolled, with neuropathy Elijah Oneal MD [facility] [place] [address] [facility] [place] [address] Referral ID Status Reason Start Date Expiration Date V isits Requested Visits Authorized [id number] Closed Continuity of Care 05/21/2020 05/21/2021 1 1 Reason for Visit * Consultation (Routine) - Closed Specialty Diagnoses / Procedures Referred By Savannah ashton Referred To Contact Endocrinology Diagnoses Hyperglycemia, unspecified Type 2 diabetes mellitus without complications Jossie Patton APRN [address] [place] [address] [facility] [address] [place] [phone] Referral ID Status Reason Start Date Expiration Date V isits Requested Visits Authorized [id number] Closed Consult, [facility] PCP Updated and/or Approved 03/29/2020 03/29/2021 6 6 Encounter Details Date Type Department Care Team (Latest Contact Info) Description 05/23/2020 9:00 AM EST Office Visit Endocrinology at [facility] [place] [address] Elijah Oneal MD [facility] [place] [address] Type 2 diabetes mellitus, uncontrolled, with neuropathy; Santaquin-induced hypothyroidism and transient hypercalcemia (TSH 4.4H on 09/18/19, iCa 5.75H with Li 1.3-1.7H); Vitamin D deficiency (25vitD 14.5 on 05/16/13-> 29 on 07/07/19); Mixed hyperlipidemia; Diabetes mellitus due to underlying condition, uncontrolled, with complication, with long-term current use of insulin Social History Tobacco Use Types Packs/Day Years Used Date Smoking Tobacco: Every Day Cigarettes Smokeless Tobacco: Never Comments:marijuana occasiona lly Sex and Gender Information Value Date Recorded Sex Assigned at Not on file Gender Identity Not on file Sexual Orientation Not on file documented as of this encounter Patient Instructions * Patient Instructions* Elijah Oneal MD - 05/23/2020 9:00 AM EST Recent Results (from the past 24 hour(s)) LDL Cholesterol, Direct Result Value Ref Range LDL Chol Direct 96 mg/dL TSH Result Value Ref Range TSH 1.72 0.27 - 4.20 mcIU/mL Vitamin B12 Result Value Ref Range Vitamin B-12 324 232 - 1,245 pg/mL Vitamin D, 25-Hydroxy Result Value Ref Range 25-OH Vit D Total 38 21 - 100 ng/mL 25-OH Vit D Interp Sufficient Comprehensive metabolic panel (non-fasting) Result Value Ref Range Glucose Lvl 158 65 - 199 mg/dL BUN 11 8 - 18 mg/dL Creatinine 0.69 (L) 0.70 - 1.20 mg/dL Sodium 138 135 - 145 mmol/L Potassium 4.3 3.5 - 5.0 mmol/L Chloride 103 98 - 107 mmol/L CO2 23 22 - 31 mmol/L Anion Gap 12 5 - 15 mmol/L Calcium 9.9 8.5 - 10.5 mg/dL Total Protein 7.1 6.1 - 8.0 gm/dL Albumin 4.7 3.2 - 5.2 gm/dL AST 25 0 - 30 unit/L ALT 32 (H) 0 - 30 unit/L Alk Phos 78 35 - 105 unit/L Total Bilirubin 0.4 0.2 - 1.3 mg/dL Estimated GFR 107 >=60 mL/min/1.73 m?? Hemoglobin A1c Result Value Ref Range Hemoglobin A1C 10.0 (H) 4.3 - 5.6 % Est Avg Gluc 241 mg/dL U Albumin/Cre Ratio Result Value Ref Range Alb/Cr Ratio, Random Not Calculated 0 - 29 mcg/mg Cr U Albumin Conc, Random <3.0 mg/L U Creatinine 62 mg/dL Insulin Instructions You have an appointment with Dr. Oneal at [facility] ([facility]). Please take your blood glucose (BG) and insulin record with you. Instructions for Lantus Insulin This is the long-acting insulin. Inject Lantus at the same time each day. Your current dose is 80 units. If the BG before breakfast is higher than 150 for two days in a row, add TWO units to the Lantus dose. This becomes your new dose. If the BG before breakfast is lower than 90, subtract TWO-FIVE units from the LANTUS dose and that will be your new dose. Continue to adjust the dose by 2-5 units every 2 days until your morning BG is in the target range of 90-140. If you should forget to take your Lantus, take your usual dose as soon as you realize it was missed. Gradually work back to taking it at your usual time, moving it by 2 - 3 hours each day. Instructions for Mealtime Novolog (or Humalog) Insulin This is the rapid-acting insulin, used at mealtime to prevent a high BG after you eat. Check your BG before each meal. ??? If your BG is 100 or higher, inject Novolog right before eating. ??? If your BG is 80 - 100, inject Novolog right after eating. ??? If your BG is lower than 80, or you have symptoms of a low BG, treat the low BG first, then eatyour meal and take the Novolog after eating. The dose of Novolog is based on the amount of carbohydrate in your meal. Take 1 unit for every 10 grams of carbohydrate: Total carb in meal 10 grams = Novolog 1 unit 20 grams = Novolog 2 units 30 grams = Novolog 3 units 40 grams = Novolog 4 units 50 grams = Novolog 5 units 60 grams = Novolog 6 units 70 grams = Novolog 7 units 80 grams = Novolog 8 units If you should forget to take your Novolog with a meal, take the usual dose if less than an hour haspassed since you ate your meal. If more than an hour has passed since you ate, check your BG and use the correction scale below. Instructions for Correction Novolog Insulin This is the rapid-acting insulin, used to correct a high BG, and bring it back down to the target. Inject correction Novolog if your BG is higher than 150 before meals or at bedtime. This dose can beadded to the mealtime dose and given all as one injection. At bedtime, take this dose by itself. Your correction dose is 1 unit for every 30 points that your BG is above 150. ADD the following extra insulin if your before-meal BG is higher than 150: BG 150-180 take 1 extra unit BG 181-210 take 2 extra units BG 211-240 take 3 extra units BG 241-270 take 4 extra units BG 271-300 take 5 extra units BG 301-330 take 6 extra units BG 331-360 take 7 extra units BG 361-390 take 8 extra units BG 391-420 take 9 extra units and call your doctor If you check your BG three - four hours after a meal - it should be in the target of 80 - 150. If the BG is higher than 150, take another dose of Novolog according to the scale above. You may repeat this every 3 - 4 hours until your BG is less than 150. Do not take Novolog doses closer than 3 - 4 hours apart. Call your doctor if your BG does not come down after three extra doses. Treatment of Low Blood Sugar (Hypoglycemia) If your BG is lower than 80, you are likely to feel shaky, sweaty and lightheaded. This is a signalthat your body needs more sugar. Quickly eat or drink a small serving of something sweet, such as: 4 ounces fruit juice or regular (not diet) soda 6 lifesavers small box of raisins 4 glucose tablets (~15 gm of glucose) NB: If your BG is very low <50, you can double the amount above or take 30 gm of glucose gel/tablets. Sit and rest and you should feel better within a few minutes. Once you are feeling better, try to determine why your BG was so low. Common causes of hypoglycemia include skipping a meal, lots of exercise, too much insulin or any combination of these things. Understanding the cause my help you to avoid another low BG in the future. Call your doctor for blood sugars less than 60 or greater than 400 to have your insulin doses adjusted. [facility] [place] Recommendation: 1. Medication: Patient will start taking Humalog pen based on 1u:10 gm carb TID for each meal and extra for high BG based on 1U:30 BG ratio (CF 30) if BG >150 (sensitive sliding scale). Simple sliding scales were given, practiced and explained in details. Patient was advised of proper dosage, how to take the medication properly, precautions, and potential complication of the medication prescribed. => If BG remains high after 2-7 days on the above regimen, she is allowed to switch to 1u:7g carb TID and moderate sliding scale based on correction factor of 20. Different set of sliding scales were also given to her today To cont Lantus 80 units nightly. Patient is allowed to adjust lantus dose by 2-5 units every 2 daysuntil fasting BG at target of 90-140 mg/dl per protocol. B12 1,000 mcg im x1 at clinic today To take vitD 50,000 iu weekly loading dose to keep vitD up in mid range soon in 2-3 mo and will taper to q 2 weeks in spring-summer. To start spironolactone 50 mg bid for hirsutism and HTN. Will monitor BMP at next lab draw in 2-3 mo as well.. To continue all other medications. Addendum: lab after the visit showed normal c-peptide 1.7, so we will add glimiperide 4 mg bid to help reduce insulin need to half dose and to taper it down gradually further if needed as instructed. 2. Monitoring: to continue to monitor finger stick blood glucose before each meal and at bedtime. Target BG 80-150 fasting, 80-150 pre-meal and below 180-200 if checking 1-2 h post meal. Target A1c < 7% for this patient. 3. Diet and exercise: Patient was counselled on medical nutritional therapy, the importance of complying with diabetes medications as well as low fat/low carb diet & exercise as tolerated to keepweight down or at least stable. Info on carb counting was discussed and given to the patient today. Patient will keep log of blood glucose, carb intake and insulin used for review at next viit. 4. Prevention: Patient was counselled on importance of yearly ophtalmologist and foot maintenance, checking daily for ulcers, keeping feet warm and dry and to monitor for loss of sensation. Blood pressure target with DM is below 140/90 and patient is currently meeting this goal. Patient should continue PHILIPPE inhibitor or ARB for its renal protective effects. Lipid profile with target LDL below 100 for diabetic patients and below 70 with CAD and patient is currently meeting this goal. 5. Lab: to recheck lab for A1c, BMP, B12 and 25vitamin D at locally at [facility] lab in 2-3 mo prior to next visit We will let patient know test lab test results and adjust medication if needed during this interim. Orders Placed This Encounter Procedures ??? Hemoglobin A1c ??? C-peptide ??? Comprehensive metabolic panel (non-fasting) ??? Vitamin D, 25-Hydroxy ??? Vitamin B12 ??? U Albumin/Cre Ratio ??? TSH ??? LDL Cholesterol, Direct ??? GAD65 Antibody Assay ??? Vitamin D, 25-Hydroxy ??? Vitamin B12 ??? Hemoglobin A1c ??? Basic Metabolic Panel (non-fasting) ??? Referral to Nutrition Services 6. RTC: Next visit in 2-3 months via Telehael[employer] so we can help adjust DM medication regimen further. 7. Refer her to see Isis Chapa RD for MNT and pump eval. 8. She will contact [facility] for pump order as rec'd soon. Meanwhile we will adjust her IC ratioand ISF to keep DM under control soon. Elijah Oneal MD, PhD, FACE, FACP documented in this encounter Progress Notes * Lianne Sotelo RN - 05/23/2020 9:00 AM EST Nurse administered B12 injection into right arm. Pt tolerated well. * Elijah Oneal MD - 05/23/2020 9:00 AM EST New Diabetes Evaluation Date of Consultation: 05/23/2020 Patient: Name: Guzman Jean : 1975 PCP: Jossei Patton APRN Reason for Consult: Guzman Jean presents to establish T2DM care in consultation for Dr Jossie Parr APRN. I have reviewed the available records, interviewed and examined the patient. Brief History of Present Illness: Guzman Jean is a very pleasant 44 y.o. female with the following problem list: Patient Active Problem List Diagnosis Code ??? Type 2 diabetes mellitus E11.9 ??? Polycystic ovaries E28.2 ??? Low back pain M54.5 ??? Hyperlipidemia E78.5 ??? Depression, BPD, anxiety F32.9 ??? Chronic nonintractable headache R51.9, G89.29 ??? Hypertension I10 ??? Insulin overdose with S/I in 2013, insulin was then given under supervision T38.3X1A ??? Suicidal ideation R45.851 ? ? Vitamin D deficiency (25vitD 14.5 on 05/16/13-> 29 on 07/07/19) E55.9 ??? Santaquin-induced hypothyroidism and transient hypercalcemia (TSH 4.4H on 09/18/19, iCa 5.75H withLi 1.3-1.7H) T56.891A, E03.2 ??? History of tobacco use Z87.891 ??? Fatty liver determined by biopsy 11/25/2009; mildly elevated LFTs K76.0 Diabetes History: Guzman Jean has had diabetes since age of 20 and currently on high dose insulin basal-bolus and metformin & victoza to help reduce insulin resistance and weight down. She just started on Dexcom G6 CGM less than 2 weeks ago and is interested in insulin pump as she is on multiple daily insulin injection 4x/day. She used to have insulin overdose 7 yrs ago and now her BPD is much better and i s able to stop Santaquin about 6 mo ago and stable mood. Her 3 daughters are now 6, 12 and 21 yrs oldand she has supportive family and her step-mother is also here with her today. She used to see Outside Plant Supervisor at [facility] (Tio Ray MD) before and wishes to switch her care to [facility] like her step-mother. Current outpatient diabetes regimen: Medications: - Long acting insulin: Lantus 80 units nightly - Meal associated insulin: Humalog 4-5 units TID => will adjust per carb intake using a carb ratio of 1u: 7-10 g carb TID for now - Humalog sliding scale for BG> 200, correction factor: 50 => will adjust to do correction for BG>150 based on correction factor of 20-30 for now - metformin 1000 mg nid & victoza pen 1.8 mg sc qd (*stopped Jardiance since September 2019 due to frequent yeast infection) BGFS Monitoring is done 4 times a day, ranging between 90s-300s mg/dl over the past 2 weeks. Most recent HbA1c was done on 05/23/20 at initial visit today and was high at 10.0%, suggesting an average glucose of 241 mg/dL for the past 8 weeks. Typical diet is: 3 meals and 0-1 snack a day Breakfast-1 toast, eggs, amyo Lunch- many time skipped lunch Supper- more variable e.g. chicken and vegetables Snacks- rare Drinks - water, crystal light, regular coke rarely Diet plan:controlled carb low fat diet - interested to learn more on carb count & will let her see Isis Chapa RD soon. Typical exercise regimen is walking Trouble with hypoglycemia over the past 3 months ([]) no ([X]) yes Symptomatic when BG < 80( shaky, sweaty, dizzy, altered and hungry). Hypoglycemia happens rarely Diabetes Complications Status: Patient denies any history of diabetic retinopathy or nephropathy but + some peripheral neuropathy. No history of foot ulcers. Currently taking an ARB (avapro), statin (simvastatin 40 mg) and an aspirin. ROS: Constitutional: + fatigue, +recent weight changes with her uncontrolled diabetes. + some polyuria & polydipsia Endocrine: No thyroid problems Eyes: +some recent vision change ENT: No dysphagia, dental issues Cardiovascular: No chest pain Respiratory: No wheezing, shortness of breath GI: +some nausea int he morning while using victoza but no vomiting, diarrhea, constipation : + frequent urinary tract infections. Integument: No ulcerations or easily bruising skin. Neurological: No weakness but +some numbness in her feet. No seizure, fainting or dizziness. Musculoskeletal: Some joint aches and muscle pain. Psych: treated for depression and anxiety and under good control. Past medical history is significant for: Patient Active Problem List Diagnosis Code ??? Type 2 diabetes mellitus E11.9 ??? Polycystic ovaries E28.2 ??? Low back pain M54.5 ??? Hyperlipidemia E78.5 ??? Depression, BPD, anxiety F32.9 ??? Chronic nonintractable headache R51.9, G89.29 ??? Hypertension I10 ??? Insulin overdose with S/I in 2013, insulin was then given under supervision T38.3X1A ??? Suicidal ideation R45.851 ? ? Vitamin D deficiency (25vitD 14.5 on 05/16/13-> 29 on 07/07/19) E55.9 ??? Santaquin-induced hypothyroidism and transient hypercalcemia (TSH 4.4H on 09/18/19, iCa 5.75H withLi 1.3-1.7H) T56.891A, E03.2 ??? History of tobacco use Z87.891 ??? Fatty liver determined by biopsy 11/25/2009; mildly elevated LFTs K76.0 AMBULATORY MEDICATIONS: Current Outpatient Medications on File Prior to Visit Medication Sig Dispense Refill ??? glucagon, Human Recombinant, (Glucagon Emergency Kit, human,) 1 mg Recon Soln Inject 1 mg into the muscle as needed. ??? acetaminophen (Tylenol) 325 mg Tablet Take 325-650 mg by mouth Every 4 hours as needed. ??? amLODIPine (Norvasc) 10 mg Tablet Take 10 mg by mouth Daily. ??? ARIPiprazole (Abilify) 10 mg Tablet Take 25 mg by mouth daily. ??? blood sugar diagnostic strips (OneTouch Verio test strips) Strip USE TO CHECK BLOOD GLUCOSE TWICE DAILY DX E11.9 ??? Blood-Glucose Meter (OneTouch Verio Flex meter) Misc USE TO CHECK BLOOD GLUCOSE TWICE [...] mouth Every 4 hours as needed. ??? insulin glargine (Lantus Solostar U-100 Insulin) 100 unit/mL (3 mL) pen INJECT 40 UNITS SUBCUTANEOUSLY DAILY. ??? insulin lispro (humaLOG KwikPen) Insulin Pen 4 Units. Sliding scale ??? labetaloL (Normodyne) 100 mg Tablet Take 100 mg by mouth Twice daily. ??? lamoTRIgine (LaMICtal) 150 mg Tablet TAKE 1 TABLET BY MOUTH EVERY DAY IN THE MORNING ??? liraglutide (Victoza 3-Mayo) 0.6 mg/0.1 mL (18 mg/3 mL) Pen Injector 0.8 mg daily. ??? simvastatin (Zocor) 40 mg Tablet TAKE 1 TABLET BY MOUTH EVERYDAY AT BEDTIME ??? nicotine (NICODERM CQ) 21 mg/24 hr Patch 24 hr APPLY TO HAIRLESS SKIN DAILY, ROTATE SITES ??? metFORMIN (GLUCOPHAGE) 1,000 mg Tablet Take 2,000 mg by mouth. ??? lithium CR (Lithobid) 300 mg Tablet Sustained Release 450 in the morning, 300 at bedtime ??? dexmethylphenidate (FOCALIN) 10 mg Tablet Take 10 mg by mouth Three times a day. ??? traMADoL (Ultram) 50 mg Tablet Take 50 mg by mouth Every 6 hours. ??? ranitidine (ZANTAC) 150 mg Tablet Take 300 mg by mouth Twice daily. No current facility-administered medications on file prior to visit. ADR/ALLERGIES: Allergies Allergen Reactions ??? Lisinopril SOCIAL HISTORY/HABITS Social History Socioeconomic History ??? Marital status: Single Spouse name: Not on file ??? Number of children: Not on file ??? Years of education: Not on file ??? Highest education level: Not on file Occupational History ??? Not on file Social Needs ??? Financial resource strain: Not on file ??? Food insecurity Worry: Not on file Inability: Not on file ??? Transportation needs Medical: Not on file Non-medical: Not on file Tobacco Use ??? Smoking status: Current Every Day Smoker Packs/day: 1.00 Types: Cigarettes ??? Smokeless tobacco: Never Used ??? Tobacco comment: marijuana occasionally Substance and Sexual Activity ??? Alcohol use: Not on file ??? Drug use: Not on file ??? Sexual activity: Not on file Lifestyle ??? Physical activity Days per week: Not on file Minutes per session: Not on file ??? Stress: Not on file Relationships ??? Social connections Talks on phone: Not on file Gets together: Not on file Attends baptist service: Not on file Active member of club or organization: Not on file Attends meetings of clubs or organizations: Not on file Relationship status: Not on file ??? Intimate partner violence Fear of current or ex partner: Not on file Emotionally abused: Not on file Physically abused: Not on file Forced sexual activity: Not on file Other Topics Concern ??? Not on file Social History Narrative ??? Not on file FAMILY HISTORY +T1DM on half brother (age 30) +Diabetes in cousins +HTN in both parents No thyroid or cancer in the family Physical Exam BW 220 lb, 5', BP 140/51, OH 77, RR 12, BMI 43 Appearance: Patient is very pleasant 44 y.o. female, obese, clinically euthyroid, not in acute distress, here with her step-mother whom I know well as one of my patients as well. Skin - normal in texture and temperature, mild acanthosis nigricans around the nape of the neck, noabnormal striae or ecchymosis. HEENT - PERRLA, EOMI, no lid lag. Neck - supple, no goiter or nodule, no lymphadenopathy, no carotid bruit. + mild posterior cervicalhump. Lungs - Normal chest expansion, no crackles or wheeze Heart - regular rhythm, normal apical impulse, normal S1, S2 and no murmur Abdomen - soft, non-tender, no abnormal mass. Extremities - no pitting edema, no proximal muscle weakness, reflexes were slightly depressed all. No foot ulcer. Psych: normal affect RECENT LABS: Recent Results (from the past 24 hour(s)) LDL Cholesterol, Direct Result Value Ref Range LDL Chol Direct 96 mg/dL TSH Result Value Ref Range TSH 1.72 0.27 - 4.20 mcIU/mL Vitamin B12 Result Value Ref Range Vitamin B-12 324 232 - 1,245 pg/mL Vitamin D, 25-Hydroxy Result Value Ref Range 25-OH Vit D Total 38 21 - 100 ng/mL 25-OH Vit D Interp Sufficient Comprehensive metabolic panel (non-fasting) Result Value Ref Range Glucose Lvl 158 65 - 199 mg/dL BUN 11 8 - 18 mg/dL Creatinine 0.69 (L) 0.70 - 1.20 mg/dL Sodium 138 135 - 145 mmol/L Potassium 4.3 3.5 - 5.0 mmol/L Chloride 103 98 - 107 mmol/L CO2 23 22 - 31 mmol/L Anion Gap 12 5 - 15 mmol/L Calcium 9.9 8.5 - 10.5 mg/dL Total Protein 7.1 6.1 - 8.0 gm/dL Albumin 4.7 3.2 - 5.2 gm/dL AST 25 0 - 30 unit/L ALT 32 (H) 0 - 30 unit/L Alk Phos 78 35 - 105 unit/L Total Bilirubin 0.4 0.2 - 1.3 mg/dL Estimated GFR 107 >=60 mL/min/1.73 m?? Hemoglobin A1c Result Value Ref Range Hemoglobin A1C 10.0 (H) 4.3 - 5.6 % Est Avg Gluc 241 mg/dL U Albumin/Cre Ratio Result Value Ref Range Alb/Cr Ratio, Random Not Calculated 0 - 29 mcg/mg Cr U Albumin Conc, Random <3.0 mg/L U Creatinine 62 mg/dL Impression: Guzman Jean has uncontrolled type II diabetes with insulin resistance due to obesity (BMI 43), requiring high dose insulin basal-bolus plus metformin and victoza to help reduce insulin resistance and weight down. She just started on Dexcom G6 CGM less than 2 weeks ago and will linkher download data to our practice as advised by Isis Chapa RD who saw her briefly this AM. She is interested in insulin pump as she is on multiple daily insulin injection 4x/day. She used to have insulin overdose 7 yrs ago and now her BPD is much better and is able to stop Santaquin about 6 mo ago and stable mood. She has supportive family and her step-mother is also here with her today. She used to see Outside Plant Supervisor at [facility] (Tio Ray MD) before and wishes to switch her care to [facility] like her step-mother. Review of her previous record and lab showed that she also has PCOS, lithium- induced hypothyroid and hypercalcemia -both are resolved now after she quit taking Li since September 2019. ALso treated for HTN, HLP, OA, depression, anxiety, LBP, vitD deficiency and used to have B12 shots for B12 deficiency as well (off for about a year), She still has hirsutism from PCOS, fatigue and some neuropathy with borderline low B12 <400 on lab today so we will resume B12 injection at the visit today and switch OTC to prescription vitD and start spironolactone for her facial hair growth for her PCOS as well. Recommendation: 1. Medication: Patient will start taking Humalog pen based on 1u:10 gm carb TID for each meal and extra for high BG based on 1U:30 BG ratio (CF 30) if BG >150 (sensitive sliding scale). Simple sliding scales were given, practiced and explained in details. Patient was advised of proper dosage, how to take the medication properly, precautions, and potential complication of the medication prescribed. => If BG remains high after 2-7 days on the above regimen, she is allowed to switch to 1u:7g carb TID and moderate sliding scale based on correction factor of 20. Different set of sliding scales were also given to her today To cont Lantus 80 units nightly. Patient is allowed to adjust lantus dose by 2-5 units every 2 daysuntil fasting BG at target of 90-140 mg/dl per protocol. B12 1,000 mcg im x1 at clinic today To take vitD 50,000 iu weekly loading dose to keep vitD up in mid range soon in 2-3 mo and will taper to q 2 weeks in spring-summer. To start spironolactone 50 mg bid for hirsutism and HTN. Will monitor BMP at next lab draw in 2-3 mo as well.. To continue all other medications. Addendum: lab after the visit showed normal c-peptide 1.7, so we will add glimiperide 4 mg bid to help reduce insulin need to half dose and to taper it down gradually further if needed as instructed. 2. Monitoring: to continue to monitor finger stick blood glucose before each meal and at bedtime. Target BG 80-150 fasting, 80-150 pre-meal and below 180-200 if checking 1-2 h post meal. Target A1c < 7% for this patient. 3. Diet and exercise: Patient was counselled on medical nutritional therapy, the importance of complying with diabetes medications as well as low fat/low carb diet & exercise as tolerated to keepweight down or at least stable. Info on carb counting was discussed and given to the patient today. Patient will keep log of blood glucose, carb intake and insulin used for review at next viit. 4. Prevention: Patient was counselled on importance of yearly ophtalmologist and foot maintenance, checking daily for ulcers, keeping feet warm and dry and to monitor for loss of sensation. Blood pressure target with DM is below 140/90 and patient is currently meeting this goal. Patient should continue PHILIPPE inhibitor or ARB for its renal protective effects. Lipid profile with target LDL below 100 for diabetic patients and below 70 with CAD and patient is currently meeting this goal. 5. Lab: to recheck lab for A1c, BMP, B12 and 25vitamin D at locally at [facility] lab in 2-3 mo prior to next visit We will let patient know test lab test results and adjust medication if needed during this interim. Orders Placed This Encounter Procedures ??? Hemoglobin A1c ??? C-peptide ??? Comprehensive metabolic panel (non-fasting) ??? Vitamin D, 25-Hydroxy ??? Vitamin B12 ??? U Albumin/Cre Ratio ??? TSH ??? LDL Cholesterol, Direct ??? GAD65 Antibody Assay ??? Vitamin D, 25-Hydroxy ??? Vitamin B12 ??? Hemoglobin A1c ??? Basic Metabolic Panel (non-fasting) ??? Referral to Nutrition Services 6. RTC: Next visit in 2-3 months via [employer] so we can help adjust DM medication regimen further. 7. Refer her to see Isis Chapa RD for MNT and pump eval. 8. She will contact [facility] for pump order as rec'd soon. Meanwhile we will adjust her IC ratioand ISF to keep DM under control soon. We have reviewed our plan outlined above with the patient and patient verbalized understanding. Allquestions were answered, spent approximately 60 minutes together during today's visit, of which more than 40 minutes was spent in counseling about diet, exercise, medications adjustment and proper use of DM medication, cardiac risk prophylaxis, the diagnostic and therapeutic decisions, and coordination of care. Thank you for allowing me to participate in the care of this very pleasant and interesting patient. Elijah Oneal MD, PhD, FACE, FACP CC: Jossie Patton APRN Insulin Instructions You have an appointment with Dr. Oneal at [facility] ([facility]). Please take your blood glucose (BG) and insulin record with you. Instructions for Lantus Insulin This is the long-acting insulin. Inject Lantus at the same time each day. Your current dose is 80 units. If the BG before breakfast is higher than 150 for two days in a row, add TWO units to the Lantus dose. This becomes your new dose. If the BG before breakfast is lower than 90, subtract TWO-FIVE units from the LANTUS dose and that will be your new dose. Continue to adjust the dose by 2-5 units every 2 days until your morning BG is in the target range of 90-140. If you should forget to take your Lantus, take your usual dose as soon as you realize it was missed. Gradually work back to taking it at your usual time, moving it by 2 - 3 hours each day. Instructions for Mealtime Novolog (or Humalog) Insulin This is the rapid-acting insulin, used at mealtime to prevent a high BG after you eat. Check your BG before each meal. ??? If your BG is 100 or higher, inject Novolog right before eating. ??? If your BG is 80 - 100, inject Novolog right after eating. ??? If your BG is lower than 80, or you have symptoms of a low BG, treat the low BG first, then eatyour meal and take the Novolog after eating. The dose of Novolog is based on the amount of carbohydrate in your meal. Take 1 unit for every 10 grams of carbohydrate: Total carb in meal 10 grams = Novolog 1 unit 20 grams = Novolog 2 units 30 grams = Novolog 3 units 40 grams = Novolog 4 units 50 grams = Novolog 5 units 60 grams = Novolog 6 units 70 grams = Novolog 7 units 80 grams = Novolog 8 units If you should forget to take your Novolog with a meal, take the usual dose if less than an hour haspassed since you ate your meal. If more than an hour has passed since you ate, check your BG and use the correction scale below. Instructions for Correction Novolog Insulin This is the rapid-acting insulin, used to correct a high BG, and bring it back down to the target. Inject correction Novolog if your BG is higher than 150 before meals or at bedtime. This dose can beadded to the mealtime dose and given all as one injection. At bedtime, take this dose by itself. Your correction dose is 1 unit for every 30 points that your BG is above 150. ADD the following extra insulin if your before-meal BG is higher than 150: BG 150-180 take 1 extra unit BG 181-210 take 2 extra units BG 211-240 take 3 extra units BG 241-270 take 4 extra units BG 271-300 take 5 extra units BG 301-330 take 6 extra units BG 331-360 take 7 extra units BG 361-390 take 8 extra units BG 391-420 take 9 extra units and call your doctor If you check your BG three - four hours after a meal - it should be in the target of 80 - 150. If the BG is higher than 150, take another dose of Novolog according to the scale above. You may repeat this every 3 - 4 hours until your BG is less than 150. Do not take Novolog doses closer than 3 - 4 hours apart. Call your doctor if your BG does not come down after three extra doses. Treatment of Low Blood Sugar (Hypoglycemia) If your BG is lower than 80, you are likely to feel shaky, sweaty and lightheaded. This is a signalthat your body needs more sugar. Quickly eat or drink a small serving of something sweet, such as: 4 ounces fruit juice or regular (not diet) soda 6 Nanoferenceavers small box of raisins 4 glucose tablets (~15 gm of glucose) NB: If your BG is very low <50, you can double the amount above or take 30 gm of glucose gel/tablets. Sit and rest and you should feel better within a few minutes. Once you are feeling better, try to determine why your BG was so low. Common causes of hypoglycemia include skipping a meal, lots of exercise, too much insulin or any combination of these things. Understanding the cause my help you to avoid another low BG in the future. Call your doctor for blood sugars less than 60 or greater than 400 to have your insulin doses adjusted. [facility] [place] documented in this encounter Miscellaneous Notes * Addendum Note - Elijah Oneal MD - 05/23/2020 9:00 AM ESTAddended by: ELIJAH ONEAL on: 05/23/2020 11:45 AM Modules accepted: Orders documented in this encounter Plan of Treatment Upcoming Encounters Date Type Department Care Team (Late st Contact Info) Description 02/21/2024 1:40 PM EDT Office Visit [place] [address] Kristi Caicedo APRN [facility] [place] [address] Scheduled Referrals Name Type Priority Associated Diagnoses Orde r Schedule Referral to Nutrition Services Outpatient Referral Routine Type 2 diabetes mellitus, uncontrolled, with neuropathy Ordered: 05/21/2020 documented as of this encounter Results * U Albumin/Cre Ratio (05/23/2020 8:21 AM EST) Albumin / Creatinin Ratio, Urine Not Calculated 0 - 29 mcg/mg Cr [facility] Comment: Reference Ranges: <30 [...] 2, 357? 362 Albumin, Urine <3.0 mg/L [facility] Creatinine, Urine 62 mg/dL MA RY [facility] Urine specimen (specimen) 05/23/2020 8:21 AM EST 05/23/2020 8:36 AM EST Narrative Resulting Agency Comment Spec In Lab Elijah Oneal MD URINE ORDERABLES Performing Organization Address [facility] de Phone Number [facility] [place] [address] * GAD65 Antibody Assay (05/23/2020 8:20 AM EST) Gad65 Ab (AUGUST) 0.00 <=0.02 nmol/L [facility] Comment: ADDITIONAL INFORMATION This test was developed and its performance characteristics determined by [facility] in a manner consistent with CLIA requirements. This test has not been cleared or approved by the U.S. Food and Drug Administration. Test Performed by: [facility] [place] [address] Laundry Marker Supervisor: Lloyd Barker M.D. Ph.D.; CLIA# [id number] Blood specimen (specimen) 05/23/2020 8:20 AM EST 05/23/2020 11:14 AM EST Narrative Resulting Agency Comment Spec In Lab Elijah Oneal MD LAB SEND OUT ORDE RABMATT Performing Organization Address City/[facility] Co de Phone Number [facility] [place] [address] * LDL Cholesterol, Direct (05/23/2020 8:20 AM EST) LDL Cholesterol, Direct 96 mg/dL [facility] Comment: Lowest Risk: <100 mg/dL Lower Risk: 100-129 mg/dL Borderline High Risk: 130-159 mg/dL High Risk: 160-189 mg/dL Very High Risk: >fx=186 mg/dL Blood specimen (specimen) 05/23/2020 8:20 AM EST 05/23/2020 8:43 AM EST Narrative Resulting Agency Comment Spec In Lab Elijah Oneal MD CHEMISTRY ORDERAB LES Performing Organization Address City/[facility]/ZIP Co de Phone Number [facility] [place] [address] * TSH (05/23/2020 8:20 AM EST) Thyroid Stimulating Hormone 1.72 0.27 - 4.20 mcIU/mL [facility] Blood specimen (specimen) 05/23/2020 8:20 AM EST 05/23/2020 8:43 AM EST Narrative Resulting Agency Comment Spec In Lab Elijah Oneal MD CHEMISTRY ORDERAB LES Performing Organization Address City/[facility]/ZIP Co de Phone Number [facility] [place] [address] * Vitamin B12 (05/23/2020 8:20 AM EST) Vitamin B12 324 232 - 1,245 pg/mL [facility] Blood specimen (specimen) 05/23/2020 8:20 AM EST 05/23/2020 8:43 AM EST Narrative Resulting Agency Comment Spec In Lab Elijah Oneal MD CHEMISTRY ORDERAB LES Performing Organization Address City/[facility]/ZIP Co de Phone Number [facility] [place] [address] * Vitamin D, 25-Hydroxy (05/23/2020 8:20 AM EST) Vitamin D Total 25 OH 38 21 - 100 ng/mL [facility] Vit D Interp Sufficient [facility] Blood specimen (specimen) 05/23/2020 8:20 AM EST 05/23/2020 8:43 AM EST Narrative Resulting Agency Comment Spec In Lab Elijah Oneal MD CHEMISTRY ORDERAB LES [facility] [place] [address] * (ABNORMAL) Comprehensive metabolic panel (non-fasting) (05/23/2020 8:20 AM EST) Glucose 158 65 - 199 mg/dL [facility] Comment:Diabetes: >=200 mg/d L plus symptoms Blood Urea Nitrogen 11 8 - 18 mg/dL [facility] Creatinine 0.69(L) 0.70 - 1.20 mg/dL [facility] Sodium 138 135 - 145 mmol/L [facility] Potassium 4.3 3.5 - 5.0 mmol/L [facility] Comment: Please note: ??Patients with WBC >100,000 may have falsely elevated Potassium levels. ??For accurate Potassium quantification in these patients send serum separator tube (gold top) for subsequent determinations. ??Contact the Clinical Chemistry Laboratory if there are any questions. Chloride 103 98 - 107 mmol/L [facility] Carbon Dioxide 23 22 - 31 mmol/L [facility] Anion Gap 12 5 - 15 mmol/L [facility] Calcium 9.9 8.5 - 10.5 mg/dL [facility] Protein, Total 7.1 6.1 - 8.0 gm/dL [facility] Albumin 4.7 3.2 - 5.2 gm/dL [facility] Aspartate Aminotransferase 25 0 - 30 unit/L [facility] Alanine Aminotransferase 32(H) 0 - 30 unit/L [facility] Alkaline Phosphatase 78 35 - 105 unit/L [facility] Bilirubin, Total 0.4 0.2 - 1.3 mg/dL [facility] Est Glomerular Filtration Rate 107 >=60 mL/min/1. 73 m?? [facility] Comment: This patient? s estimated glomerular filtration rate (eGFR) is between 107 mL/min/1.73 m2 (patients with less muscle mass) and 124 mL/min/1.73 m2 (patients with more muscle mass) as determined by the CKD-EPI equation. Assessment of eGFR is not appropriate when creatinine concentrations are rapidly changing. For clinical decisions where creatinine clearance will affect therapy, a 24-hour urine creatinine clearance may be advised. Assignment of CKD stage 1 ? 5 for patients with an eGFR near the transition point between stages may be based on clinical assessment of muscle mass and symptoms in addition to eGFR. Blood specimen (specimen) 05/23/2020 8:20 AM EST 05/23/2020 8:43 AM EST Narrative Resulting Agency Comment Spec In Lab Elijah Oneal MD CHEMISTRY ORDERAB LES Performing Organization Address City/[facility]/ZIP Co de Phone Number [facility] [place] [address] * C-peptide (05/23/2020 8:20 AM EST) C-Peptide 1.7 0.8 - 5.2 ng/mL [facility] Blood specimen (specimen) 05/23/2020 8:20 AM EST 05/23/2020 8:43 AM EST Narrative Resulting Agency Comment Spec In Lab Elijah Oneal MD CHEMISTRY ORDERAB LES Performing Organization Address City/[facility] Co de Phone Number [facility] [place] [address] * (ABNORMAL) Hemoglobin A1c (05/23/2020 8:20 AM EST) Hemoglobin A1c 10.0(H) 4.3 - 5.6 % [facility] Comment: Reference Range: 4.3 [...] Mellitus, Diabetes Care 2013; 36: Suppl. 1, S67-64 Estimated Average Glucose 241 mg/dL [facility] Comment: eAG equivalents for HbA1c percentages: [...] into estimated average glucose values. ??Diabetes Care 2008:31(8):7131-8244. 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 (TSH 4.4H on 09/18/19, iCa 5.75H with Li 1.3-1.7H) Other iatrogenic hypothyroidism Vitamin D deficiency (25vitD 14.5 on 05/16/13-> 29 on 07/07/19) Unspecified vitamin D deficiency Mixed hyperlipidemia Diabetes mellitus due to underlying condition, uncontrolled, with complication, with long-term current use of insulin documented in this encounter Administered Medications Inactive Administered Medications - up to 3 most recent administrations Medication Order MAR Action Action Date Dose Rate Site cyanocobalamin (Vitamin B-12) (1,000 mcg/mL) injection 1,000 mcg 1,000 mcg, Intramuscular, ONCE, 1 dose, On 05/23/20 at 0945, Routine Given 05/23/2020 9:41 AM EST 1,000 mcg Right Deltoid documented in this encounter Care Teams 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
--- OUTSIDE RECORDS SUMMARY | 2024-02-14 15:18 | XMS_ITS | Clinical Summary ---
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 Active ranitidine (ZANTAC) 150 mg tablet Take 300 mg by mouth 2 times daily. Active ibuprofen (MOTRIN) 400 mg tablet Take 1 Tab by mouth every 4 hours as needed for Pain. 05/16/2014 Active Additional Information Patient not taking.Reported on 06/28/2017 labetalol (NORMODYNE) 200 mg tablet Take 1 Tab by mouth every 12 hours. 60 Tab 1 05/16/2014 Active Additional Information Patient not taking.Reported on 06/28/2017 metFORMIN (GLUCOPHAGE) 1,000 mg tablet Take 1 Tab by mouth 2 times daily with breakfast and dinner. 60 Tab 2 05/16/2014 Active Additional Information Patient not taking.Reported on 11/11/2023 traMADol (ULTRAM) 50 mg tablet Take 50 mg by mouth every 6 hours Active sitaGLIPtin (JANUVIA) 100 mg tablet Take 100 mg by mouth daily. Active pioglitazone (ACTOS) 30 mg tablet Take 30 mg by mouth daily. Active lithium (LITHOBID) 300 mg CR tablet 450 in the morning, 300 at bedtime 05/05/2019 Active VICTOZA 3-STEPHANIE 0.6 mg/0.1 mL (18 mg/3 mL) injectable pen INJECT 0.6 MG SUBCUTANEOUSLY DAILY X 1 WEEK THEN 1.2 MG DAILY X 1 WEEK THEN 1.8 MG 05/03/2019 Active lamoTRIgine (LAMICTAL) 25 mg tablet TAKE 2 TABLETS BY MOUTH AT BEDTIME WITH 200MG TABLET 06/03/2019 Active lamoTRIgine (LAMICTAL) 200 mg tablet Take 1 Tablet by mouth daily. 06/02/2019 Active JARDIANCE 25 mg tablet Take 25 mg by mouth daily. 06/12/2019 Active Cholecalciferol, Vitamin D3, 50 mcg (2,000 unit) capsule Take 1 Tab by mouth daily. 04/07/2019 Active ONETOUCH VERIO FLEX USE TO CHECK BLOOD GLUCOSE TWICE DAILY DX E11.9 06/25/2019 Active ONETOUCH VERIO test strips USE TO CHECK BLOOD GLUCOSE TWICE DAILY DX E11.9 06/25/2019 Active simvastatin (ZOCOR) 40 mg tablet TAKE 1 TABLET BY MOUTH EVERYDAY AT BEDTIME 08/17/2019 Active nicotine (NICODERM CQ) 21 mg/24 hr patch APPLY TO HAIRLESS SKIN DAILY, ROTATE SITES 08/08/2019 Active irbesartan (AVAPRO) 150 mg tablet Take 150 mg by mouth daily. 08/18/2019 Active HUMALOG KWIKPEN INSULIN 100 unit/mL injectable pen INJECT 4 UNITS PLUS CORRECTION (1UNIT FOR EVERY 30 200) SUBCUTANEOUSLY BEFORE MEALS 08/26/2019 Active ARIPiprazole (ABILIFY) 2 mg tablet Take 2 mg by mouth daily. 08/26/2019 Active amLODIPine (NORVASC) 10 mg tablet Take 10 mg by mouth daily. 07/20/2019 Active PROAIR HFA 90 mcg/actuation inhaler INHALE 1 TO 2 PUFFS EVERY 4 TO 6 HOURS NEEDED FOR WHEEZING 08/03/2019 Active lamoTRIgine (LAMICTAL) 150 mg tablet TAKE 1 TABLET BY MOUTH EVERY DAY IN THE MORNING 10/12/2019 Active labetaloL (NORMODYNE) 100 mg tablet Take 100 mg by mouth 2 times daily. 10/16/2019 Active QUEtiapine (SEROQUEL) 400 mg tablet Take 100 mg by mouth at bedtime. 10/05/2019 Active LANTUS SOLOSTAR U-100 INSULIN 100 unit/mL (3 mL) injection pen INJECT 40 UNITS SUBCUTANEOUSLY DAILY. 09/25/2019 Active cyclobenzaprine (FLEXERIL) 10 mg tablet TAKE 1 TABLET BY MOUTH THREE TIMES A DAY NEEDED 09/07/2019 Active ARIPiprazole (ABILIFY) 10 mg tablet Take 10 mg by mouth every morning. 10/19/2019 Active hydrOXYzine (VISTARIL) 50 mg capsule TAKE 1 TO 2 CAPSULES BY MOUTH EVERY DAY AT BEDTIME 10/19/2019 Active yellow fever vaccine, PF,, 9 mos+, (YF-VAX) SC injection-vialIndica tions:Travel advice encounter,Need for prophylactic vaccination against yellow fever Inject 0.5 mL into the skin Once for 1 dose. 1 Each 06/12/2022 Active typhoid polysaccharide vaccine (TYPHIM ) 25 mcg/0.5 mL IM syringeIndications:Florencio willams advice encounter,Need for immunization against typhoid Inject 0.5 mL into the muscle Once for 1 dose. 0.5 mL 06/12/2022 Active atovaquone-proguaniL (MALARONE) 250-100 mg per tabletIndications:Kaleb eason advice encounter Take 1 Tablet by mouth daily. Start two days before. Every day while travel. 7 days post travel. 23 Tablet 06/12/2022 Active hepatitis A vaccine, PF,, adult, (HAVRIX) 1,440 ASA unit/mL syringeIndications:Florencio wilalms advice encounter,Need for prophylactic vaccination against hepatitis A Inject 1 mL into the muscle Once for 1 dose. 1 mL 06/12/2022 Active Additional Information Patient not taking.Reported on 11/11/2023 tetanus, diptheria, acellular pertussis vaccine, PF, (ADACEL) IM syringeIndications:Florencio willams advice encounter,Need for Tdap vaccination Inject 0.5 mL into the muscle Once for 1 dose. 0.5 mL 06/12/2022 Active poliovirus vaccine, IPV, (IPOL) injectionIndications :Travel advice encounter,Need for prophylactic vaccination against polio Inject 0.5 mL into the muscle Once for 1 dose. 0.5 mL 06/12/2022 Active Additional Information Patient not taking.Reported on 11/11/2023 meningococcal conjugate MCV40 (MENVEO) IM kitIndications:Cornelius cassidy advice encounter,Need for prophylactic vaccination and inoculation against meningococcus Inject 0.5 mL into the muscle Once for 1 dose. 0.5 mL 06/12/2022 Active Additional Information Patient not taking.Reported on 11/11/2023 tirzepatide (MOUNJARO) 15 mg/0.5 mL pen injector Inject 15 mg into the skin once a week. Active cariprazine (VRAYLAR) 4.5 mg capsule Take 1 Capsule by mouth daily. Active Active Problems Problem Noted Date Diagnosed Date Nasal vestibulitis 06/28/2017 Recurrent sinusitis 06/28/2017 Chronic nonintractable headache 06/28/2017 Chronic left SI joint pain 03/17/2015 section wound seroma, 2014 Overview: Seroma without evidence of cellulitis Excellent granulation tissue Packed today Daily home health care for wound packing Weekly visit Last Assessment & Plan: Excellent granualtion, no cellulitis Temp 97 here bp 140/82 Calling endo with glucose values- states are good Tobacco use in , ch ildbirth, or the puerperium, antepartum 02/22/2014 Overview: Smoking - 1/2 ppd- encouraged further decrease Chronic hypertension with ex acerbation during in third trimester 01/18/2014 Overview: The patient has a history of chronic hypertension pre dating . Her primary care physician discontinued her PHILIPPE-inhibitor prior to . The patient stopped taking her Labetalol because it was giving her headaches. The patient's third trimester 24-hour urine was 550mg/24 hours. Currently treating as chronic hypertension. Blood pressure stable today. Last Assessment & Plan: The patient has a history of chronic hypertension pre dating . Her primary care physician discontinued her PHILIPPE-inhibitor prior to . The patient stopped taking her Labetalol because it was giving her headaches. The patient's third trimester 24-hour urine was 550mg/24 hours. Currently treating as chronic hypertension. Blood pressure stable today. Previous delivery, antepartum condition or complication 12/11/2013 Overview: The patient desires a repeat delivery. Plan for 39 weeks' gestation. Last Assessment & Plan: The patient desires a repeat delivery. Plan for 39 weeks' gestation. Diabetes mellitus in , antepartum 12/11 Overview: Baseline pre-eclampsia labs: Never did. First 24hr prot 03/2014, 550mg Opthalmology- 08/2013 TSH- 1.06 HgbA1c- 7.4 [facility] Detailed - Marginal cord insertion echo - normal Growth q 4 wk @ 26-28 wk testing @ 32 wks Metformin 1000mg twice a day Glyburide 5mg twice a day History of suicide attempt with insulin overdose 04/16/2014 - The patient is again non-compliant with glucose log. She states that her fasting blood glucose is over 200 this morning. Her HgbA1c has increased from 5.1% to 7.0% in the early third trimester. We will call the patient and obtain BS. It is likely that she will need to be on insulin for glycemic control. We are obviously concerned because of her previous suicide attempt. Will discuss with the MFM group and Endocrine. 04/27/2014 - discharged from the hospital on 20 U Lantus w/ 15 U Novolog with meals 04/30/2014: Increased to 30u Lantus, with Novolog still as above. 05/07/2013: Lantus 35 Units, with Novolog 15 with meals ICD10 Update Auto Replacement Last Assessment & Plan: Baseline pre-eclampsia labs: Never did. First 24hr prot 03/2014, 550mg Opthalmology- 08/2013 TSH- 1.06 HgbA1c- 7.4 [facility] Detailed - Marginal cord insertion echo - normal 05/07/2014 EFW 3,191 g 89% Gibson testing @ 32 wks History of suicide attempt with insulin overdose 04/16/2014 - The patient is again non-compliant with glucose log. She states that her fasting blood glucose is over 200 this morning. Her HgbA1c has increased from 5.1% to 7.0% in the early third trimester. We will call the patient and obtain BS. It is likely that she will need to be on insulin for glycemic control. We are obviously concerned because of her previous suicide attempt. Will discuss with the MFM group and Endocrine. 04/27/2014 - discharged from the hospital on 20 U Lantus w/ 15 U Novolog with meals 04/30/2014: Increased to 30u Lantus, with Novolog still as above. 05/07/2013: Lantus 35 Units, with Novolog 15 with meals The patient did not bring her glucose log today. She states that they are ok, but I am concerned that she is not taking them. She worked last night, ate meals, and did not record any blood sugars. I asked the patient to drop her BS off at L&D this weekend for review, and I would call her on Saturday. EFW 98%tile today. Depression complicating , antepartum Overview: Previous suicide attempt 04/[address] Colbert Multiple meds - dexmethyphenidate , Gabapentin, seroquel Seen q 2 wk. Stable at this time Last Assessment & Plan: Previous suicide attempt 04/[address] Colbert Multiple meds - dexmethyphenidate , Gabapentin, seroquel Seen q 2 wk. Stable at this time Back pain complicating 12/11/2013 Overview: Surgery L4L5- herniated disc- Dr. Betina Verde and occasional tylenol for control Last Assessment & Plan: Surgery L4L5- herniated disc- Dr. Moffett Flexdavidl and occasional tylenol for control Rh negative state in antepartum period 4 Overview: Screen at 28 wks with Rhogam Last Assessment & Plan: Screen at 28 wks with Rhogam Obesity complicating pregnan cy, childbirth, or puerperium, antepartum 12/11/2013 Overview: BMI- 32 discussed wt ICD10 Update Auto Replacement Episodic mood disorder ([facility]) 05/07/2013 Overview: ICD10 Update Auto Replacement Suicide attempt by drug ingestion ([facility]) 12/2013 Suicidal ideation 05/01/2013 Insulin overdose 05/01/2013 Depression 05/01/2013 Pain in joint, pelvic region and thigh 2 Brachial plexus lesions 10/16/2011 Shoulder pain 10/16/2011 Hyperlipidemia 09/04/2011 Pain of left thigh 08/20/2011 Low back pain 11/14/2010 Left hip pain 10/06/2010 Overview: NO NARCOTICS, INAPPROPRIATE URINE SCREEN Left buttock pain 11/23/2009 Insertion of (intrauterine) contraceptive device 08/26/2008 Contraceptive management 08/11/2008 Overview: MIRENA IUD 08/26/2008 Polycystic ovaries 01/21/2008 Routine history and physical examination of adul t 02/15/2005 Type 2 diabetes mellitus ([facility]) 02/15/2005 Resolved Problems Problem Noted Date Diagnosed Date Resolved Date Supervision of high-risk pre gnancy of elderly multigravida 12/11/2013 06/23/2014 Overview: Dating: LMP consistent with a 6 week ultrasound labs Rh A negative / Abs negative /Rubella Immune / Varicella Immune / HepB negative / HIV negative / RPR NR Pap: Negative with neg HR HPV G/C: Negative Urine cx: Negative Aneuploidy screening: NIPT low risk for T21, T13, T18 Influenza vaccination 02/22/2014 [facility] Detailed: marginal umbilical cord insertion Rhogam given 02/22/2014 Tdap vaccination 04/09/14 [ ] GBS pending [ ] Contraception MARKETING COMMUNICATION MANAGER - nights L&D Last Assessment & Plan: Dating: LMP consistent with a 6 week ultrasound labs Rh A negative / Abs negative /Rubella Immune / Varicella Immune / HepB negative / HIV negative / RPR NR Pap: Negative with neg HR HPV G/C: Negative Urine cx: Negative Aneuploidy screening: NIPT low risk for T21, T13, T18 Influenza vaccination 02/22/2014 [facility] Detailed: marginal umbilical cord insertion Rhogam given 02/22/2014 Tdap vaccination 04/09/14 [ ] GBS pending [ ] Contraception MARKETING COMMUNICATION MANAGER - nights L&D The patient was sent to L&D for extended monitoring. tachycardia Encounters Date Type Department Care Team Description 11/20/2023 Refill [facility] Infectious Disease [address] [place] [address] Mecca Giraldo, RN Medications Refill from Last 3 Months Immunizations Name Administration Dates Next Due Hepatitis A Vaccine Adult (HAVRIX/VAQTA) IM 05/30 Influenza Vaccine =>3yo Split IM 02/06/2011 Influenza Vaccine =>3yo Spli t Preservative Free IM 03/04/2012,03/16/2010 Influenza Vaccine Quad (AFLU NATALI) PF 0.5 ml IM (3 yrs+) 02/22/2014 Meningococcal Conjugate (MCV 4) Vaccine (MENVEO) 4-Valent IM 06/12/2022 Poliovirus Vaccine IPV IM OR SQ 06/12/2022 Tdap Vaccine =>7YO IM 06/12/2022,04/09/2014,08/28 Typhoid ViCPs (TYPHIM Vi) Vaccine IM 06/12/2022 Yellow Fever Vaccine SQ 06/12/2022 Surgical History Surgery Date Site/Laterality Comments TONSILLECTOMY 2001 CHOLECYSTECTOMY 11/25/2009 Dr. Mendez SECTION 1998,2007 times 2 HIP ARTHROSCOPY 2012 Medical History Medical History Date Comments Type 2 diabetes mellitus without (mention of) co mplications 02/15/2005 Routine general medical examination at [facility] facility 02/15/2005 Polycystic ovaries 01/21/2008 Fatigue Wears glasses Back pain Anxiety LBP (low back pain) 11/14/2010 Depression TIDWELL (headache) Joint pain Arm numbness Hyperlipidemia 09/04/2011 Hip pain High cholesterol Asthma Hypertension Family History Medical History Relation Comments Cancer Maternal Aunt breast cancer Cancer Maternal [facility] Diabetes Paternal Grandfather Diabetes Paternal Grandmother Relation Status Comments Maternal Aunt Maternal Grandmother Paternal Grandfather Paternal Grandmother Social History Tobacco Use Types Packs/Day Years Used Date Smoking Tobacco: Every Day Cigarettes 0.5 2 Smokeless Tobacco: Never Tobacco Cessation:Ready to Q uit: No; Counseling Given: Yes Alcohol Use Standard Drinks/Week Comments No 0 (1 standard drink = 0.6 oz pur e alcohol) rare wine cooler Interpersonal Safety Answer Date Record ed Physically Hurt Never 11/29/2019 Verbally Threaten Not on file 11/29/2019 Sex and Gender Information Value Date Recorded Sex Assigned at Not on file Gender Identity Not on file Sexual Orientation Not on file Obstetrics History Para Term AB IAB SAB Ectopic Multiple Livin g Live Births 4 3 2 1 1 1 3 3 Date Outcome GA Total Labor Labor/2nd/3rd Weight Sex Type Anes PTL Vane A1 A5 Name Clin 1994 SAB 4w0 d 1998 Term CS-Un spec N Livin g 2007 Term CS-Un spec Livin g 2014 36w 2d 3487 g (7 lb 11 oz) F CS-LT ranv Spinal Livin g 5 7 LANCE LOURDES ,GINGER mcclain, Radha garnica MD Delivery Location:[facility] Last Filed Vital Signs Vital Sign Reading Time Taken Comments Blood Pressure 116/78 11/11/2023 1704 EDT Pulse 86 11/11/2023 1704 EDT Temperature 37.1 ??C (98.8 ??F) 11/11/2023 1259 EDT Respiratory Rate 18 11/11/2023 1704 EDT Oxygen Saturation 99% 11/11/2023 1704 EDT Inhaled Oxygen Concentration - - Weight 76.2 kg (168 lb) 11/11/2023 1259 EDT Height 152.4 cm (5') 11/11/2023 1259 EDT Body Mass Index 32.81 11/11/2023 1259 EDT Plan of Treatment Health Maintenance Due Date Last Done Comments Eye Exam 1977 Foot Exam 1977 Pneumococcal Immunization (1 of 2 - PCV) 07/16/1983 Hepatitis B Vaccine (1 of 3 - 19+ 3-dose series) 1996 Hemoglobin A1C (Ha1C) 10/07/2015 07/07/2015 , 04/16/2014, 02/22/2014, Additional history exists Lipid Profile Screening (Cholesterol) 07/06/2020 07/07/2019, 05/07/2013, 09/03/2011, Additional history exists Microalbumin/Creatinine Ratio 07/06/2020, 11/21/2012, 06/26/2011, Additional history exists COVID-19 Vaccine ( - 2022-2 4 season) 2022 Hepatitis C Screen Completed 11/11/2023, 0 08/24/2023, 06/22/2019 Goals Goal Patient Goal Type Associated Problems Recent Progress Patient-Stated? Author HEMOGLOBIN A1C < 7.0 Result Component Type 2 diabetes mellitus (HCC-CMS) 8.7(07/07/2015 5:05 EST) Annmarie Lopez Medical Devices Implanted Type Area I&C Tech Device Identifier Shelf Expiration Date Model / Serial / Lot Mirena Iud-Mr Safe To 3t Description:Pt has a Mirena IUD as of 08-07-11 safe to 3T per safety manual 2011; [facility] Procedures Procedure Name Priority Date/Time Associated Diagnosis Comments HEPATITIS C AB W REFLEX TO HCV RNA BY PCR STAT 11/11/2023 14:52 EDT URINE GSNUBAT-RS-HYPROXQI NE RATIO (ACR) Routine 07/07/2019 11:39 EDT Uncontrolled type 2 diabetes mellitus with hyperglycemia ([facility]) LIPID PROFILE (INCLUDES CHOLESTEROL, TRIGLYCERIDES, HDL, LDL) Routine 07/07/2019 11:37 EDT Uncontrolled type 2 diabetes mellitus with hyperglycemia ([facility]) HEMOGLOBIN A1C Routine 07/07/2015 5:05 EST from Last 3 Months or Most Recently Relevant to Health Maintenance Results * HEPATITIS C AB W REFLEX TO HCV RNA BY PCR (11/11/2023 14:52 EDT) Hep C Antibody Negative Negative 11/12/2023 9:[address] [facility] Blood VENOUS BLOOD / Unknown Venipuncture / Unknown 11/11/2023 14:52 EDT 11/11/2023 15:02 EDT Annmarie Méndez PA-C CHEMISTRY & BLOOD G ORDERABLES [facility] [address] [place] [id number] * ALBUMIN, URINE (07/07/2019 11:39 EDT) Albumin, Urine <0.6 See Note mg/dL 2019 15:[address] [facility] Comment: NOTE: Reference range not established Creatinine, Urine 30.4 See Note mg/dL 07/07/2019 15:[address] [facility] Comment: NOTE: Reference range not established Lab Urine Albumin to Creatinine Ratio <20 <30 ug/mg Creatinine 07/07/2019 15:[address] [facility] Comment: Urine Albumin/Creatinine Ratio: Normal: <30 ug/mg Creatinine Moderately increased albuminuria: 30-30 ug/mg Creatinine Magalieviv increased albuminuria: >300 ug/mg Creatinine Urine URINE SPECIMEN OBTAINED BY CLEAN CATCH PROCEDURE / Unknown Urine Collect / Unknown 07/07/2019 11:39 EDT 07/07/2019 11:40 EDT Tio Ray MD CHEMISTRY & BLOOD GAS ORDERABLES [facility] [address] [place] [address] * LIPID PROFILE (INCLUDES CHOLESTEROL, TRIGLYCERIDES, HDL, LDL) (07/07/2019 11:37 EDT) Cholesterol 301 See Note mg/dL 07/07/2019 16:22 [facility] Comment: Acceptable: ?<200 mg/dL Borderline High: 200-239 mg/dL High: ?> or = 240 mg/dL HDL 56 See Note mg/dL 07/07/2019 16:22 [facility] Comment: Low: ? <40 mg/dL Normal: ??40-60 mg/dL High: ?>60 mg/dL LDL, Calculated 0 16:22 [facility] Comment: Optimal: ? <100 mg/dL Near Optimal: ?100-129 mg/dL Borderline High: 130-159 mg/dL High: ?160-189 mg/dL Very High: ? > or = 190 mg/dL Calculated LDL invalid, triglycerides >400 mg/dL Direct LDL measurement added by reflex. Triglyceride 742 See Note mg/dL 07/07/2019 16:22 [facility] Comment: Normal: ? <150 mg/dL Borderline High: ??150 - 199 mg/dL High: ? 200 - 499 mg/dL Very High: ?> or = 500 mg/dL Chol/HDL Ratio 5.4 See Note 07/07/2019 16:[address] [facility] Comment: No reference range has been established for CHOL/HDL ratio. Non HDL Cholesterol 245 See Note mg/dL 07/07/2019 16:[address] [facility] Comment: Desirable: ?<130 mg/dL Borderline High: ??130-159 mg/dL High: ? 160-189 mg/dL Very High: ?> or = 190 mg/dL Blood VENOUS BLOOD / Unknown Venipuncture / Unknown 07/07/2019 11:37 EDT 07/07/2019 11:[address] [facility] - 07/07/2019 16:22 EDT 1 Tio Ray MD CHEMISTRY & BLOOD GAS ORDERABLES Performing Organization Address City/State/[facility] Co de Phone Number [facility] [address] [place] [address] * HEMOGLOBIN A1C (07/07/2015 5:05 EST) Pathologist [facility] Hemoglobin A1C 8.7 % 07/08/2015 10:[address] [facility] Comment: Reference Range: <5.7% Normal 5.7-6.4% Increased risk for diabetes =>6.5% Diagnostic for diabetes (if confirmed) The A1c goal for non adults in general is <7%. The A1c goal for selected patients may be significantly lower than 7% if this can be achieved without significant hypoglycemia or other adverse effects of treatment. Est Avg Glucose 203 mg/dl 6 10:[address] [facility] Comment: eAG represents the A1c result expressed as average glucose in mg/dl. BLOOD SPECIMEN / Unknown 07/07/2015 5:05 EST 07/07/2015 17:13 EST Annette Sidhu APRN CHEMISTRY & BLOOD GA S ORDERABLES [facility] [address] [place] [address] from Last 3 Months or Most Recently Relevant to Health Maintenance Additional Health Concerns Infection Onset Date Last Indicated MRSA Comment:IP note: risk factors - DM, obesity Pos sinus 06/30/17 M [place] 07/01/17 07/01/2017 07/01/2017 Advance Directives For more information, please contact: [phone] * Full Code (Latest Code Status on File) Date Activated Date Inactivated Comments 05/12/2014 12:36 05/16/2014 20:07 Question Answer Comments Reason for decision includes: Full code consistent with overall plan of care Who participated in the discussion? Not Discusse d * Full Code Date Activated Date Inactivated Comments 05/12/2014 7:38 05/12/2014 12:36 Question Answer Comments Reason for decision includes: Full code consistent with overall plan of care Who participated in the discussion? Not Discusse d * Full Code Date Activated Date Inactivated Comments 05/12/2014 7:36 05/12/2014 7:38 Question Answer Comments Reason for decision includes: Full code consistent with overall plan of care Who participated in the discussion? Not Discusse d * Full Code Date Activated Date Inactivated Comments 05/12/2014 5:13 05/12/2014 7:36 Question Answer Comments Reason for decision includes: Full code consistent with overall plan of care Who participated in the discussion? Not Discusse d * Full Code Date Activated Date Inactivated Comments 05/07/2014 11:18 05/08/2014 11:24 Question Answer Comments Reason for decision includes: Full code consistent with overall plan of care Who participated in the discussion? Not Discusse d Care Teams Lift Truck Mechanic Relationship Specialty Start Date End Date Stephanie Santos MD [address] [place] [id number] PCP - General Family Medicine - Primary Care 11/11/23
--- OUTSIDE RECORDS SUMMARY | 2024-02-14 15:18 | XMS_ITS | Encounter Summary ---
Author Organization [facility]ly [facility] Julieta douglas [place] [id number] Care Team Providers Care [facility] Consultant Name Role Phone PoojaJossie karimi Gabrielle GARCIA Primary Care Provider Encounter Details Date Type Department Care Team (Latest Contact Info) Description 08/23/2020 2:00 PM EDT Clinical Support Endocrinology at [facility] [place], [facility] [place] [phone] [address] [facility] [place] [address] Type 2 diabetes mellitus, uncontrolled, with neuropathy Social History Tobacco Use Types Packs/Day Years Used Date Smoking Tobacco: Every Day Cigarettes Smokeless Tobacco: Never Comments:marijuana occasiona lly Sex and Gender Information Value Date Recorded Sex Assigned at Not on file Gender Identity Not on file Sexual Orientation Not on file documented as of this encounter Last Filed Vital Signs Vital Sign Reading Time Taken Comments Blood Pressure 145/65 08/23/2020 2:11 PM EDT Pulse 83 08/23/2020 2:11 PM EDT Temperature 36.4 ??C (97.5 ??F) 08/23/2020 2:11 PM ED T Respiratory Rate 18 08/23/2020 2:11 PM EDT Oxygen Saturation 99% 08/23/2020 2:11 PM EDT Inhaled Oxygen Concentration - - Weight 99.9 kg (220 lb 3.2 oz) 08/23/2020 2:11 P M EDT Height 152.4 cm (5') 08/23/2020 2:11 PM EDT Body Mass Index 43 08/23/2020 2:11 PM EDT documented in this encounter Progress Notes * Isis Chapa, RD - 08/23/2020 2:00 PM EDT [facility] [place] Diabetes Education and Nutrition Services: NEW to Insulin Pump Choice Exploration Visit and Pump Readiness Assessment Guzman Jean will be new to insulin pump therapy. She has type 2 diabetes. She already has her insulin pump, the Medtronic 630G and has had a pre-pump visit with Medtronic pump color strainer. Prior to starting her insulin pump she wanted to see some hands on demonstration to help her prepare. She wasaccidentally scheduled with me as a pump start and I discussed this with her last Saturday 08/19 on the phone. Notes that she initially could not get approved for insulin pump therapy because her c peptide was too high for Medicare to cover it, however she has secondary insurance, Medicaid that would cover the insulin pump. Current Diabetes Therapy: Injectable Medications: Lantus: 82 units once daily sc Humalog: I:C 1u:10g carb and CF 1:20 > 150 Victoza: 1.8 mg once daily sc Oral Medications: Glimeperide: 4 mg BID Metformin: 1000 mg BID CGM: [employer] [place] G6 Diet: low carb about 20-25g of carb per meal Carb Counting: She has been carb counting and using I:C 1u:10g carb and can explain this well. Exercise: n/a Social/Emotional: has a hx of bipolar disorder, well controlled right now on her current medication. Her mother has come to her previous in person visits. Intervention/Teaching reviewed in preparation for pump start: -one type of insulin in the pump: Humalog -Basal rate: like a drip of insulin infused every hour x24 hours -Bolus: burst of insulin given. Pump calculates based off patient entering last CGM reading and/or grams of carbs entered if they're eating. -Infusion set and insulin reservoir: patient will be using the [employer] [facility] set. Demonstration provided. Showed her how the insulin reservoir is filled, connected to tubing, how tubing is primed, and how infusion set is inserted. -Reviewed various features of the 630G using demo pump including demonstrations of the bolus wizard. -Reviewed terms: active insulin time, target glucose/BG, insulin to carb ratio, and insulin sensitivity factor (correction factor). -Reviewed Contour Next glucometer which will be used with her pump. -Reviewed interventions for hyperglycemia such as checking infusion set for blocked insulin flow, kinked/bent cannula, changing out tubing and reservoir when blood sugars are high and not responding to insulin bolus. -She is already well aware of use of CGM and how to treat hypoglycemia which will not change with pump. Assessment: Guzman is well prepared to start her insulin pump. She has good understanding of everything and responsibility involved. She has her vials of insulin needed for the training. I let her know that the Medtronic color strainer would be contacting her to schedule a training date and time. I let her know that Dr. Oneal still needs to write the orders, and that she cannot be trained by the Medtronic pump color strainer until the orders are done. I am in the process of getting the orders and she will be notifiedfrom the training once they have them. Guzman has good understanding of troubleshoot issues that cancommonly occur with insluin pump therapy and was able to describe to me how she would deal with them appropriately. She asked about her current other Type 2 medications; discussed she would continue on those medications unless otherwise instructed by Dr. Oneal. Discussed we have other Type 2 patients on insulin pumps that stay on their other medications like Victoza, Metformin, etc. Plan: 1. Counter Control Operator will have Dr. Oneal calculate and sign orders, then fax to Marisol Gibson the Medtronic pump color strainer. 2. Guzman will have her insulin pump start training with a Medtronic insulin pump color strainer within this next month. 3. Once Guzman starts her pump, I recommended Guzman schedule a follow up visit with Dr. Oneal within the next month. Discussed she should contact us sooner after starting in the insulin pump if she has any concerns with her blood sugars. Isis Chapa MS, RDN, LD Registered Dietitian-Litigation Coordinator & [employer] Adult Endocrinology 45 minutes spent in direct face to face counseling & education regarding insulin pump therapy initiation documented in this encounter Plan of Treatment Upcoming Encounters Date Type Department Care Team (Late st Contact Info) Description 02/21/2024 1:40 PM EDT Office [place] [phone] Kristi Caicedo APRN [facility] [place] [address] documented as of this encounter Visit Diagnoses Diagnosis Type 2 diabetes mellitus, uncontrolled, with neuropathy Type II or unspecified type diabetes mellitus with neurological manifestations, uncontrolled documented in this encounter Care Teams Healthcare Network Consultant Relationship Specialty Start Date End Date Jossie Patton APRN [address] [place] [address] PCP - General Family Medicine 04/19/20 documented as of this encounter
--- OUTSIDE RECORDS SUMMARY | 2024-02-14 15:18 | XMS_ITS | Encounter Summary ---
[place] [address] Care Team Providers Care Infrastructure Tech Name Role Phone Jossie Patton APRN Primary Care Provider [phone] Encounter Details Date Type Department Care Team (Late st Contact Info) Description 11/07/2020 Telephone [place] [phone] Dahiana Perez Social History Tobacco Use Types [...] 1:40 PM EDT Office [place] [phone] Kristi Caicedo APRN [facility] [place] [address] documented as of this encounter Visit Diagnoses Not on filedocumented in this encounter Care Teams Infrastructure Tech Relationship Specialty Start Date End Date Jossie Patton APRN [address] [place] [address] PCP - General Family Medicine 04/19/20 documented as of this encounter
--- OUTSIDE RECORDS SUMMARY | 2024-02-14 15:18 | XMS_ITS | Encounter Summary ---
[place] [address] Care Team Providers Care Assistant Broker Name Role Phone Pooja, Jossie Gabrielle GARCIA Primary Care Provider [phone] Reason for Visit * Reason Onset Date Comments Prior Authorization 02/02/2021 Encounter Details Date Type Department Care Team (Late st Contact Info) Description 02/02/2021 Telephone [place] [phone] Kaia Farias Prior Authorization Social History Tobacco Use Types Packs/Day Years Used Date Smoking Tobacco: Every Day Cigarettes Smokeless Tobacco: Never Comments:marijuana occasiona lly Sex and Gender Information Value Date Recorded Sex Assigned at Not on file Gender Identity Not on file Sexual Orientation Not on file documented as of this encounter Miscellaneous Notes * Telephone Encounter - Kaia Farias - 02/07/2021 10:08 AM EDT Medication Prior Authorization Kavya Medication name/dose/directions: Ozempic 2mg/1.5mL - Inject 0.25 mg subcutaneously once a week for 28 days, THEN 0.5 mg once a week for 28 days Rationale for request: Type II DM Health plan: [place] Medicaid ([employer]) Authorizing community health program representative name: Martha Sent to health plan on: 02/07/21 Health plan decision: Denied Quantity approved: Authorization number: [id number] Start date: End date: * Telephone Encounter - Kaia Farias - 02/02/2021 7:16 AM EDT Received PA for ozempic Will complete as soon as possible documented in this encounter Plan of Treatment Upcoming Encounters Date Type Department Care Team (Late st Contact Info) Description 02/21/2024 1:40 PM EDT Office [place] [address] Kristi Caicedo APRN [facility] [place] [address] documented as of this encounter Visit Diagnoses Not on filedocumented in this encounter Care Teams Assistant Broker Relationship Specialty Start Date End Date Jossie Patton, RADHA [address] [place] [address] PCP - General Family Medicine 04/19/20 documented as of this encounter
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
--- OUTSIDE RECORDS SUMMARY | 2024-02-14 15:18 | XMS_ITS | Encounter Summary ---
Author Organization [facility] [place] [address] Care Team Providers Care Enhanced Environmental Operator Name Role Phone Jossie Patton RADHA Primary Care Provider [phone] Encounter Details Date Type Department Care Team (Latest Contact Info) Description 08/04/2020 9:00 AM EDT TH Visit (TeleHealth) [place] [address] Elijah Oneal MD [facility] [place] [address] Type 2 diabetes mellitus, uncontrolled, with neuropathy; PCOS (polycystic ovarian syndrome) Social History Tobacco Use Types Packs/Day Years Used Date Smoking Tobacco: Every Day Cigarettes Smokeless Tobacco: Never Comments:marijuana occasiona lly Sex and Gender Information Value Date Recorded Sex Assigned at Not on file Gender Identity Not on file Sexual Orientation Not on file documented as of this encounter Patient Instructions * Patient Instructions* Elijah Oneal MD - 08/04/2020 9:00 AM EDT Recommendation: 1. Medication: Patient will Increase Humalog pen based on 1u:5 gm carb TID for each meal and extra for high BG based on 1U:20 BG ratio (CF 20) if BG >150 (moderate sliding scale). Simple sliding scales were explained in details. Patient was advised of proper dosage, how to take the medication properly, precautions, and potential complication of the medication prescribed. To cont Lantus 82 units nightly. Patient is allowed to adjust lantus dose by 2-5 units every 2 daysuntil fasting BG at target of 90-140 mg/dl per protocol. To cont glimiperide 4 mg 2x/day and victoza 1.8 mg sc daily to help reduce insulin need To cont OTC-B12 1,000 mcg daily To cont vitD 50,000 iu weekly and to taper to every 2 weeks in summer. To cont spironolactone 50 mg 2x/day for hirsutism and HTN. To continue all other medications. 2. Monitoring: to continue using Dexcom G6 CGM to closely monitor finger stick blood glucose beforeeach meal and at bedtime. Target BG 80-150 fasting, 80-150 pre-meal and below 180-200 if checking 1-2 h post meal. Target A1c < 7-8% soon for this patient. 3. Diet and exercise: Patient was counselled on medical nutritional therapy, the importance of complying with diabetes medications as well as low fat/low carb diet & exercise as tolerated to keepweight down or at least stable. 4. Prevention: Patient was counselled on importance [...] goal. 5. Lab: to recheck lab for A1c locally at [facility] lab in 2-3 mo prior to next visit We will let patient know test lab test results and adjust medication if needed during this interim. 6. RTC: Next visit in 3 months via Telehaelt so we can help adjust DM medication regimen further. 7. She will contact [employer] pump for pump order as rec'd. Meanwhile we will adjust her IC ratio and ISF to keep DM under control soon. Insulin Instructions You have an appointment with Dr. Oneal at [facility] in 3 months via Telehealth. Instructions for Lantus Insulin This is the long-acting insulin. Inject Lantus at the same time each day. Your current dose is 82 units. If the BG before breakfast is [...] your meal. Take 1 unit for every 5 grams of carbohydrate: Total carb in meal 10 grams = Novolog 2 units 20 grams = Novolog 4 units 30 grams = Novolog 6 units 40 grams = Novolog 8 units 50 grams = Novolog 10 units 60 grams = Novolog 12 units 70 grams = Novolog 14 units 80 grams = Novolog 16 units If you should forget to take [...] correction dose is 1 unit for every 20 points that your BG is above 150. ADD the following extra insulin if your before-meal BG is higher than 150: BG 150-170 take 1 extra unit BG 171-190 take 2 extra units BG 191-210 take 3 extra units BG 211-230 take 4 extra units BG 231-250 take 5 extra units BG 251-270 take 6 extra units BG 271-310 take 7 extra units BG 311-330 take 8 extra units BG 331-350 take 9 extra units BG >351 take 10 units and call your doctor If you [...] 400 to have your insulin doses adjusted. [facility] Endocrine clinic office documented in this encounter Progress Notes * Elijah Oneal MD - 08/04/2020 9:00 AM EDT Diabetes Follow-up Note Date : 08/04/2020 Patient: Name: Hilda Crowley : 1975 PCP: Jossie Patton APRN Reason for follow-up: T2DM on multiple daily injections and Dexcom CGM with plan to transition to Tandem pump in the near future. Patient verbally consents to this telehealth visit and understands that this visit may be billed, similar to a clinic office visit. I provided care to the patient today via phone call. The total time associated with this visit was 37 minutes. Brief History of Present Illness: Hilda Crowley is a very pleasant 45 y.o. female with the following problem list: Patient Active Problem List Diagnosis Code ??? Type 2 diabetes mellitus E11.9 ??? Polycystic ovaries with irregular periods and hirsutism s/p bilateral tubal ligation E28.2 ??? Low back pain M54.5 ??? Hyperlipidemia E78.5 ??? Depression, BPD, anxiety F32.9 ??? Chronic nonintractable headache R51.9, G89.29 ??? Hypertension I10 ??? Insulin overdose with S/I in 2013, insulin was then given under supervision T38.3X1A ??? Suicidal ideation R45.851 ? ? Vitamin D deficiency (25vitD 14.5 on 05/16/13-> 29 on 07/07/19) E55.9 ??? Abanda-induced hypothyroidism and transient hypercalcemia (TSH 4.4H on 09/18/19, iCa 5.75H withLi 1.3-1.7H) => stopped Li since then T56.891A, E03.2 ??? History of tobacco use Z87.891 ??? Fatty liver determined by biopsy 11/25/2009; mildly elevated LFTs K76.0 ??? Adult BMI 40.0-44.9 kg/sq m Z68.41 ??? Vitamin B12 deficiency (used to take B12 shots previously) E53.8 Diabetes History: Hilda Crowley is a very pleasant 45 y.o. lady who has had diabetes since age of 20 and currentlyon high dose insulin basal-bolus and metformin & victoza to help reduce insulin resistance and weight down. She just started on Dexcom G6 CGM in early Apr 2020 and is interested in insulin pump as she is on multiple daily insulin injection 4x/day for a long time. She used to have insulin overdos e 7 yrs ago and now her BPD is much better and is able to stop Abanda about 6 mo ago and stable mood. Her 3 daughters are now 6, 12 and 21 yrs old and she has supportive family and her step-mother is also having he r medical care here. She used to see Adoption Agent at [facility] (Tio Ray MD) before and switched her care to [facility] since Apr 2020. Current outpatient diabetes regimen: Medications: - Long acting insulin: Lantus 82 units nightly - Meal associated insulin: Humalog 1:10g carb => will change to 1u: 5g carb TID for now - Humalog sliding scale for BG> 200, correction factor: 30 => will adjust to do correction for BG>150 based on correction factor of 20 for now - metformin 1000 mg bit, glimiperide 4 mg bid & victoza pen 1.8 mg sc qd (*stopped Jardiance since September 2019 due to frequent yeast infection) BGFS Monitoring is done 4-10 times a day, using Dexcom G6 CGM, ranging between 90s-200s rare 300s mg/dl over the past 2 weeks. Most recent HbA1c 9.1% on 07/30/20 (was 10.0% on 05/23/20 at initial visit), suggesting an average glucose of 210 mg/dL for the past 8 weeks. Typical diet is: 3 meals and 0-1 snack a day Breakfast-1 toast, eggs, mayo Lunch- many time skipped lunch Supper- more [...] tubal ligation E28.2 ??? Low back pain M54.5 ??? Hyperlipidemia E78.5 ??? Depression, BPD, anxiety F32.9 ??? Chronic nonintractable headache R51.9, G89.29 ??? Hypertension I10 ??? Insulin overdose with S/I in 2013, insulin was then given under supervision T38.3X1A ??? Suicidal ideation R45.851 ? ? Vitamin D deficiency (25vitD 14.5 on 05/16/13-> 29 on 07/07/19) E55.9 ??? Abanda-induced hypothyroidism and transient hypercalcemia (TSH 4.4H on 09/18/19, iCa 5.75H withLi 1.3-1.7H) => stopped Li since then T56.891A, E03.2 ??? History of tobacco use Z87.891 ??? Fatty liver determined by biopsy 11/25/2009; mildly elevated LFTs K76.0 ??? Adult BMI 40.0-44.9 kg/sq m Z68.41 ??? Vitamin B12 deficiency (used to take B12 shots previously) E53.8 AMBULATORY MEDICATIONS: Current Outpatient Medications on File Prior to Visit Medication Sig Dispense Refill ??? spironolactone (ALDACTONE) 50 mg Tablet Take 1 tablet by mouth 2 times daily. 180 tablet 4 ??? ergocalciferoL, vitamin D2, (vitamin D) 50,000 unit Capsule Take 1 capsule by mouth once a week. 13 capsule 4 ??? glimepiride (AMARYL) 4 mg Tablet Take 1 tablet by mouth 2 times daily. To be able to reduce insulin to half dose or taper down as instructed 180 tablet 3 ??? glucagon, Human Recombinant, (Glucagon Emergency [...] MOUTH THREE TIMES A DAY NEEDED ??? dexmethylphenidate (FOCALIN) 10 mg Tablet Take 10 mg by mouth Three times a day. ??? irbesartan (AVAPRO) 150 mg Tablet Take [...] mL) Pen Injector 0.8 mg daily. ??? traMADoL (Ultram) 50 mg Tablet Take 50 mg by mouth Every 6 hours. ??? simvastatin (Zocor) 40 mg Tablet TAKE 1 TABLET BY MOUTH EVERYDAY AT BEDTIME ??? ranitidine (ZANTAC) 150 mg Tablet Take 300 mg by mouth Twice daily. ??? nicotine (NICODERM CQ) 21 mg/24 hr Patch 24 hr APPLY TO HAIRLESS SKIN DAILY, ROTATE SITES ??? metFORMIN (GLUCOPHAGE) 1,000 mg Tablet Take 2,000 mg by mouth. ??? lithium CR (Lithobid) 300 mg Tablet Sustained Release 450 in the morning, 300 at bedtime ??? gabapentin (NEURONTIN) 600 mg Tablet Take 1 tablet by mouth 2 times daily. 60 tablet 11 No current facility-administered medications on file prior to visit. ADR/ALLERGIES: Allergies Allergen Reactions ??? Lisinopril SOCIAL HISTORY/HABITS Social History Socioeconomic History ??? Marital status: Single Spouse name: Not on file ??? Number of children: Not on file ??? Years of education: Not on file ??? Highest education level: Not on file Occupational History ??? Not on file Tobacco Use ??? Smoking status: Current Every Day Smoker Packs/day: 1.00 Types: Cigarettes ??? Smokeless tobacco: Never Used ??? Tobacco comment: marijuana occasionally Substance and Sexual Activity ??? Alcohol use: Not on file ??? Drug use: Not on file ??? Sexual activity: Not on file Other Topics Concern ??? Not on file Social History Narrative ??? Not on file Social Determinants of Health Financial Resource Strain: ??? Difficulty of Paying Living Expenses: Food Insecurity: ??? Worried About Running Out of Food in the Last Year: ??? Ran Out of Food in the Last Year: Transportation Needs: ??? Lack of Transportation (Medical): ??? Lack of Transportation (Non-Medical): Physical Activity: ??? Days of Exercise per Week: ??? Minutes of Exercise per Session: Stress: ??? Feeling of Stress : Social Connections: ??? Frequency of Communication with Friends and Family: ??? Frequency of Social Gatherings with Friends and Family: ??? Attends Yarsanism Services: ??? Active Member of Clubs or Organizations: ??? Attends Club or Organization Meetings: ??? Marital Status: Intimate Partner Violence: ??? Fear of Current or Ex-Partner: ??? Emotionally Abused: ??? Physically Abused: ??? Sexually Abused: FAMILY HISTORY +T1DM on half brother (age 30) +Diabetes in cousins +HTN in both parents No thyroid or cancer in the family Physical Exam Deferred. Previous exam from last in-person visit: BW 220 lb, 5', BP 140/51, DE 77, RR 12, BMI 43 Appearance: Patient is very pleasant 45 y.o. female, obese, clinically euthyroid, not in [...] foot ulcer. Psych: normal affect RECENT LABS: Results for HILDA CROWLEY ( ) as of 08/04/2020 Ref. Range 05/23/2020 08:20 05/23/2020 08:21 => 07/30/20 outside lab Sodium Latest Ref Range: 135 - 145 mmol/L 138 => 138 on 07/30/20 Potassium Latest Ref Range: 3.5 - 5.0 mmol/L 4.3 => 4.0 on 07/30/20 Chloride Latest Ref Range: 98 - 107 mmol/L 103 CO2 Latest Ref Range: 22 - 31 mmol/L 23 Anion Gap Latest Ref Range: 5 - 15 mmol/L 12 BUN Latest Ref Range: 8 - 18 mg/dL 11 Creatinine Latest Ref Range: 0.70 - 1.20 mg/dL 0.69 (L) => 0.9 on 07/30/20 Estimated GFR Latest Ref Range: >=60 mL/min/1.73 m?? 107 Calcium Latest Ref Range: 8.5 - 10.5 mg/dL 9.9 => 9.7 on 07/30/20 Glucose Lvl Latest Ref Range: 65 - 199 mg/dL 158 Hemoglobin A1C Latest Ref Range: 4.3 - 5.6 % 10.0 (H) => 9.1% on 07/30/20 Est Avg Gluc Latest Units: mg/dL 241 Total Protein Latest Ref Range: 6.1 - 8.0 gm/dL 7.1 Albumin Latest Ref Range: 3.2 - 5.2 gm/dL 4.7 Total Bilirubin Latest Ref Range: 0.2 - 1.3 mg/dL 0.4 Alk Phos Latest Ref Range: 35 - 105 unit/L 78 AST Latest Ref Range: 0 - 30 unit/L 25 ALT Latest Ref Range: 0 - 30 unit/L 32 (H) LDL Chol Direct Latest Units: mg/dL 96 Vitamin B-12 Latest Ref Range: 232 - 1,245 pg/mL 324 => 370 on 07/30/20 25-OH Vit D Total Latest Ref Range: 21 - 100 ng/mL 38 => 39.8 on 07/30/20 25-OH Vit D Interp Unknown Sufficient GAD65 Ab Latest Ref Range: <=0.02 nmol/L 0.00 TSH Latest Ref Range: 0.27 - 4.20 mcIU/mL 1.72 C-Peptide Latest Ref Range: 0.8 - 5.2 ng/mL 1.7 => 2.4 on 07/30/20 Alb/Cr Ratio, Latest Ref Range: 0 - 29 mcg/mg Cr Not Calculated U Albumin Conc, Latest Units: mg/L <3.0 U Creatinine Latest Units: mg/dL 62 Impression: Hilda Crowley is a very pleasant 45 y.o. with gradual improvement of her uncontrolled type 2 diabetes with insulin resistance due to obesity (BMI 43), A1c down from 10 to 9.1%, still requiring high dose insulin basal-bolus plus pills and victoza to help reduce insulin need. She started on Dexcom G6 CGM in Apr 2020 and seen by Isis Chapa RD as well. She is interested in insulin pump as she has been on multiple daily insulin injection 4x/day. She used to have insulin overdose 7 yrs ago and now her BPD is much better and is able to stop Abanda in summer 2019 with stable mood. She has supportive family and used to see Adoption Agent at [facility] (Tio Ray MD) before switching care to [facility] like her step-mother. Review of her previous [...] as well. Recommendation: 1. Medication: Patient will Increase Humalog pen based on 1u:5 gm carb TID for each meal and extra for high BG based on 1U:20 BG ratio (CF 20) if BG >150 (moderate sliding scale). Simple sliding scales were explained in details. Patient was advised of proper dosage, how to take the medication properly, precautions, and potential complication of the medication prescribed. To cont Lantus 82 units nightly. Patient is allowed to adjust lantus dose by 2-5 units every 2 daysuntil fasting BG at target of 90-140 mg/dl per protocol. To cont glimiperide 4 mg 2x/day and victoza 1.8 mg sc daily to help reduce insulin need To cont OTC-B12 1,000 mcg daily To cont vitD 50,000 iu weekly and to taper to every 2 weeks in summer. To cont spironolactone 50 mg 2x/day for hirsutism and HTN. To continue all other medications. Addendum 08/30/20: For insulin pump settings- Basal rate 2.0 u/h (midnight), 2.1 u/h (7a-MN) Bolus 1:5g, ISF 20, 3h, Target 100-120 daytime and 100-140 at night. 2. Monitoring: to continue using Dexcom G6 CGM to closely monitor finger stick blood glucose beforeeach meal and at bedtime. Target BG 80-150 fasting, 80-150 pre-meal and below 180-200 if checking 1-2 h post meal. Target A1c < 7-8% soon for this patient. 3. Diet and exercise: Patient was counselled on medical nutritional therapy, the importance of complying with diabetes medications as well as low fat/low carb diet & exercise as tolerated to keepweight down or at least stable. 4. Prevention: Patient was counselled on importance [...] goal. 5. Lab: to recheck lab for A1c locally at [facility] lab in 2-3 mo prior to next visit We will let patient know test lab test results and adjust medication if needed during this interim. 6. RTC: Next visit in 3 months via Telehaelth so we can help adjust DM medication regimen further. 7. She will contact [employer] pump for pump order as rec'd. Meanwhile we will adjust her IC ratio and ISF to keep DM under control soon. [...] time each day. Your current dose is 82 units. If the BG before breakfast is [...] your meal. Take 1 unit for every 5 grams of carbohydrate: Total carb in meal 10 grams = Novolog 2 units 20 grams = Novolog 4 units 30 grams = Novolog 6 units 40 grams = Novolog 8 units 50 grams = Novolog 10 units 60 grams = Novolog 12 units 70 grams = Novolog 14 units 80 grams = Novolog 16 units If you should forget to take [...] correction dose is 1 unit for every 20 points that your BG is above 150. ADD the following extra insulin if your before-meal BG is higher than 150: BG 150-170 take 1 extra unit BG 171-190 take 2 extra units BG 191-210 take 3 extra units BG 211-230 take 4 extra units BG 231-250 take 5 extra units BG 251-270 take 6 extra units BG 271-310 take 7 extra units BG 311-330 take 8 extra units BG 331-350 take 9 extra units BG >351 take 10 units and call your doctor If you [...] 400 to have your insulin doses adjusted. [facility] Endocrine clinic office documented in this encounter Plan of Treatment Upcoming Encounters Date Type Department Care Team (Late st Contact Info) Description 02/21/2024 1:40 PM EDT Office [place] [address] Kristi Caicedo APRN [facility] [place] [address] documented as of this encounter Visit Diagnoses Diagnosis Type 2 diabetes mellitus, uncontrolled, with neuropathy Type II or unspecified type diabetes mellitus with neurological manifestations, uncontrolled PCOS (polycystic ovarian syndrome) Polycystic ovaries documented in this encounter Care Teams Enhanced Environmental Operator Relationship Specialty Start Date End Date Jossie Patton APRN [address] [place] [address] PCP - General Family Medicine 04/19/20 documented as of this encounter
--- OUTSIDE RECORDS SUMMARY | 2024-02-14 15:18 | XMS_ITS | Encounter Summary ---
Author Organization [facility] [place] [address] Care Team Providers Care Asset Recovery Specialist Name Role Phone Jossie Patton APRN Primary Care Provider Encounter Details Date Type Department Care Team (Late st Contact Info) Description 01/18/2021 12:05 AM EDT Ancillary Procedure Radiology Library at [facility] [place] [phone] Jossie Patton APRN [address] [place] [address] [id number] Social History Tobacco Use Types Packs/Day Years [...] 1:40 PM EDT Office Visit Endocrinology at [facility] [place] [address] Kristi Caicedo APRN [facility] [place] [address] documented as of this encounter Procedures Procedure Name Priority Date/Time Associated Diagnosis Comments FILM LIBRARY STORAGE ONLY MR SPINE Routine 01/18/2021 12:05 AM EDT documented in this encounter Results * Film Library- Storage Only MR Spine (01/18/2021 12:05 AM EDT) Narrative RAD - 01/26/2021 4:31 PM EDT This exam is auto-finalizing. It's purpose is for storage only. Jossie Patton APRN IMG FILM LIBRARY ORD ERABLES [place], [place] documented in this encounter Visit Diagnoses Not on filedocumented in this encounter Care Teams Asset Recovery Specialist Relationship Specialty Start Date End Date Jossie Patton, RADHA [address] [place] [address] PCP - General Family Medicine 04/19/20 documented as of this encounter
--- OUTSIDE RECORDS SUMMARY | 2024-02-14 15:18 | XMS_ITS | Encounter Summary ---
Author Organization [facility] [place] [address] Care Team Providers Care Claims Clerk Name Role Phone Jossie Patton APRN Primary Care Provider [phone] Encounter Details Date Type Department Care Team (Late st Contact Info) Description 01/31/2021 1:45 PM EDT TH Visit (TeleHealth) [place] [address] Isamar Hoff APRN [facility] [address] Uncontrolled type 2 diabetes mellitus with hyperglycemia Social History Tobacco Use Types Packs/Day Years Used Date Smoking Tobacco: Every Day Cigarettes Smokeless Tobacco: Never Comments:marijuana occasiona lly Sex and Gender Information Value Date Recorded Sex Assigned at Not on file Gender Identity Not on file Sexual Orientation Not on file documented as of this encounter Patient Instructions * Patient Instructions* Isamar Hoff APRN - 01/31/2021 1:45 PM EDT Plan: [email or web address] - invitation sent to share Dexcom data --Medications: Adding Ozempic, reviewed titration schedule, review side effects Increase tresiba nightly to 55 units --Monitoring: with CGM check BGs fasting in am, before each meal, 1-2 hours after meals and at bedtime. Target fasting blood sugars 90-140 pre-meal during daytime 90-150 1-2 h post meal below 180 Target A1c 7% for this patient. --Patient will keep log of blood glucose and insulin used for review at next visit or bring CGM reader for download --Diet and exercise: low fat/controlled carb diet & exercise as tolerated to keep weight down. --RTC: Next visit in 1 month, review CGM and medication changes documented in this encounter Progress Notes * Isamar Hoff APRN - 01/31/2021 1:45 PM EDT Date of Visit: 01/31/2021 Patient is aware that this will be a telemedicine/telephone visit and understands that this might be billed as a regular office visit. Patient's location and were confirmed prior to the start of the visit. Zoom Video not working so appointment transitioned to phone call. Reason for Visit: Follow-up diabetes Brief History: Guzman Jean is a 45 y.o. female with PMH significant for T2DM she switched frommultiple daily injections to insulin pump in September (Medtronic 670G) & Dexcom G6 CGM. She also has a hx of PCOS, HTN, HLP, OA, depression, anxiety, LBP, vitD deficiency. She is a regular patient ofDr. Oneal. Interval Hx: Ryan made a follow up appointment to discuss concerns for her A1C that remains elevated since starting on her pump. She has been using her Dexcom, overall very happy with the system though A1C remains high. She adds U200 Tresiba 50 units at night to help with additional basal needs and to prevent pump from running out of insulin too quickly due to her high insulin requirement. She is not very comfortable making pump setting changes on her own. Fasting BGs 180s, noon: 230-250, after dinner 325 and HS 210-225. She has not had any lows since starting on the pump. Plan from previous visit note: Kimmy 11/03/2020 Impression: Guzman Jean is a very pleasant 45 y.o. with [...] much better and is able to stop [employer] in summer 2019 with stable mood. She has supportive family and used to see Wax Coating Machine Tender at [facility] (Tio Ray MD) before switching care to [facility] like her step-mother. ?? She just started on Medtronic pump 2 weeks ago in late September 2020 and is doing well on the pump but noted BG went up high in 200s often requiring frequent corrections so she will need a lot more basalinsulin today, and will add tresiba U200 for more basal insulin support so she won;t run out of insulin resevior too soon (300u lasts for 2.5 days currently). She supposed to schedule appointment with Kristi instead and will call our litigation secretary soon. ?? Review of her previous record and lab [...] with borderline low B12 <400 on lab so we gave her B12 injection at last visit followed by OTC-B12 1,000 mcg qd. We also switched OTC to prescription vitD and started spironolactone for her facial hair growth for her PCOS as well. ? Recommendation: ?? 1. Medication: Patient will add addition basal insulin on top of her insulin pump for more basal insulin by using Tresiba U200 pen 30-60 units nightly - To start at 30u qhs and adjust by 5-10u until BG down to 100-140 range soon while fasting at night. She used to tale lantus 100 u daily and now pump provides only 49.7 u/day basal insulin and she has to change insulin reservior often every 2.5 days. TDI ~120+u/day. To cont Medtronic pump using current settings for now: Basal 2.0u/h (MN) and 2.1 unit/h (7a-MN); Bolus 1u:5 gm carb, ISF 20, Target BG 100-120 day time and 100- 140 at night. - we will adjust basal insulin first and we may need to increase meal bolus 1u:4g carb and ISF 10-15 next time if BG remains high daytime. To cont glimiperide 4 mg 2x/day and metforminER 2000 mg/day further to help reduce insulin need To cont OTC-B12 1,000 mcg daily To cont vitD 50,000 iu weekly and to taper to every 2 weeks in summer. Will recheck lab as planned soon To cont spironolactone 50 mg 2x/day for hirsutism and HTN. To continue all other medications. ?? 2. Monitoring: to continue using Dexcom G6 CGM to closely monitor finger stick blood glucose beforeeach meal and at bedtime. Target BG 80-150 fasting, 80-150 pre-meal and below 180-200 if checking 1-2 h post meal. Target A1c < 7-8% soon for this patient. ?? 3. Diet and exercise: Patient was counselled on medical nutritional therapy, the importance of complying with diabetes medications as well as low fat/low carb diet & exercise as tolerated to keepweight down or at least stable. ?? 4. Prevention: Patient was counselled on importance of yearly ophtalmologist and foot maintenance, checking daily for ulcers, keeping feet warm and dry and to monitor for loss of sensation. ?? Blood pressure target with DM is below 140/90 and patient is currently meeting this goal. Patient should continue PHILIPPE inhibitor or ARB for its renal protective effects. Lipid profile with target LDL below 100 for diabetic patients and below 70 with CAD and patient is currently meeting this goal. ?? 5. Lab: to recheck lab soon for A1c and Lipids locally at [facility] lab We will let patient know test lab test results and adjust medication if needed during this interim. ?? 6. RTC: Next visit with ROSI Mcdowell DNP for pump follow-up (just started on new pump a few weeks ago Medtronic 670G & Dexcom G6 CGM via Telehaelth or in person so we can help adjust pump regimen further. I can see her annually for endocrine issue. ? We have reviewed our plan outlined above with the patient and patient verbalized understanding. Allquestions were answered, spent approximately 60 minutes together during today's visit, of which more than 40 minutes was spent in counseling about diet, exercise, medications adjustment and proper use of DM medication, cardiac risk prophylaxis, the diagnostic and therapeutic decisions, and coordination of care. ?? Diabetes History: Last A1C was 10.4% 12/27/2020 Most recent A1C: Recent Labs 05/23/20 0820 HA1C 10.0* Guzman Jean diabetes diagnosed age 20 Current Diabetes Medications: Basal rates: MN - 7AM 2u/hr 7am MN 2.1 u/hr CR 1:5 ISF 20 Tresiba U200 50 units in pm for additional basal coverage Metformin Glucose Monitoring: Sensor:Dexcom G6 Justification for testing > 3x a day to prevent severe hyperglycemia, widely fluctuating BS, overnight hypoglycemia Meter uploaded today: Duration of need: lifetime Pump/Sensor information: Frequency of set changes: Every 2.5 Days Diabetes Complications Review and prevention: not reviewed today Current Medications: Medications 02/08/21 1447 Medication Sig Taking? Trulicity 0.75 mg/0.5 mL Pen Injector Inject 0.75 mg subcutaneously once a week. insulin needles, disposable, 31 gauge x 3/16 Needle 1 each by Qonf.(Non-Drug; Combo Route) route daily. cariprazine (Vraylar) 3 mg Capsule Take 3 mg by mouth daily. Insulin Tresiba FlexTouch U-200 200 unit/mL (3 mL) Insulin Pen Inject 30-60 Units subcutaneously nightly. Indications: type 2 diabetes mellitus humaLOG Solution Inject 120-150 Units subcutaneously daily. In insulin pump daily spironolactone (ALDACTONE) 50 mg Tablet Take 1 tablet by mouth 2 times daily. ergocalciferoL, vitamin D2, (vitamin D) 50,000 unit Capsule Take 1 capsule by mouth once a week. glimepiride (AMARYL) 4 mg Tablet Take 1 tablet by mouth 2 times daily. To be able to reduce insulinto half dose or taper down as instructed glucagon, Human Recombinant, (Glucagon Emergency Kit, human,) 1 mg Recon Soln Inject 1 mg into the muscle as needed. acetaminophen (Tylenol) 325 mg Tablet Take 325-650 mg by mouth Every 4 hours as needed. amLODIPine (Norvasc) 10 mg Tablet Take 10 mg by mouth Daily. blood sugar diagnostic strips ([employer] Verio test strips) Strip USE TO CHECK BLOOD GLUCOSE TWICE DAILY DX E11.9 Blood-Glucose Meter (OneTouch Verio Flex meter) Misc USE TO CHECK BLOOD GLUCOSE TWICE DAILY DX E11.9 cholecalciferol, Vitamin D3, 50 mcg (2,000 unit) Capsule Take 1 tablet by mouth Daily. cyclobenzaprine (Flexeril) 10 mg Tablet TAKE 1 TABLET BY MOUTH THREE TIMES A DAY NEEDED dexmethylphenidate (FOCALIN) 10 mg Tablet Take 10 mg by mouth Three times a day. irbesartan (AVAPRO) 150 mg Tablet Take 150 mg by mouth Daily. hydrOXYzine (VISTARIL) 50 mg Capsule TAKE 1 TO 2 CAPSULES BY MOUTH EVERY DAY AT BEDTIME ibuprofen (Advil;Motrin) 400 mg Tablet Take 400 mg by mouth Every 4 hours as needed. labetaloL (Normodyne) 100 mg Tablet Take 100 mg by mouth Twice daily. lamoTRIgine (LaMICtal) 150 mg Tablet TAKE 1 TABLET BY MOUTH EVERY DAY IN THE MORNING traMADoL (Ultram) 50 mg Tablet Take 50 mg by mouth Every 6 hours. simvastatin (Zocor) 40 mg Tablet TAKE 1 TABLET BY MOUTH EVERYDAY AT BEDTIME ranitidine (ZANTAC) 150 mg Tablet Take 300 mg by mouth Twice daily. nicotine (NICODERM CQ) 21 mg/24 hr Patch 24 hr APPLY TO HAIRLESS SKIN DAILY, ROTATE SITES metFORMIN (GLUCOPHAGE) 1,000 mg Tablet Take 2,000 mg by mouth. lithium CR (Lithobid) 300 mg Tablet Sustained Release 450 in the morning, 300 at bedtime gabapentin (NEURONTIN) 600 mg Tablet Take 1 tablet by mouth 2 times daily. REVIEW OF SYSTEMS: All 12 systems reviewed and negative except as noted per HPI. Physical Exam: There were no vitals taken for this visit. Appearance: pleasant, NAD, AAOx3, speaking in clear sentences Limited exam due to virtual nature of this visit Labs: Not updated Assessment: Patient is a 45 y.o. female with PMH significant [id number] she switched from multiple daily injections to insulin pump in September (Medtronic 670G) & Dexcom G6 CGM. She also has a hx of PCOS, HTN, HLP,OA, depression, anxiety, LBP, vitD deficiency. She is a regular patient of Dr. Oneal. A1C continues to be elevated despite addition of U200 Tresiba 50 units at night to help with additional basalneeds. She has tried Victoza previously, has no hx of pancreatitis of family hx of medullary thyroid cancer though did have nausea and vomiting with this GLP-1 medication. I have concern that she will have symptoms with other medications in this class though she would like to trial Ozempic. If thisis not covered we can try her on Truclity which has a lower side effect profile. Reviewed SE and titration schedule of this medication with her. Warned that this medicaiton might cause similar SE. Plan: [email or web address] - invitation sent to share Dexcom data --Medications: Adding Ozempic, reviewed titration schedule, review side effects Increase tresiba nightly to 55 units --Monitoring: with CGM check BGs fasting in am, before each meal, 1-2 hours after meals and at bedtime. Target fasting blood sugars 90-140 pre-meal during daytime 90-150 1-2 h post meal below 180 Target A1c 7% for this patient. --Patient will keep log of blood glucose and insulin used for review at next visit or bring CGM reader for download --Diet and exercise: low fat/controlled carb diet & exercise as tolerated to keep weight down. --RTC: Next visit in 1 month, review CGM and medication changes 50 minutes were spent reviewing the medical record and available tests, [facility] counseling the patient on medications, recommending changes to insulin dosing, reviewing management of hypoglycemia, and in prescription management, I have reviewed the plan outlined above with the patient and patient has verbalized understanding. documented in this encounter Plan of Treatment Upcoming Encounters Date Type Department Care Team (Late st Contact Info) Description 02/21/2024 1:40 PM EDT Office [place] [address] Kristi Caicedo APRN [facility] [place] [address] documented as of this encounter Visit Diagnoses Diagnosis Uncontrolled type 2 diabetes mellitus with hyperglycemia documented in this encounter Care Teams Claims Clerk Relationship Specialty Start Date End Date Jossie Patton APRN [address] [place] [address] PCP - General Family Medicine 04/19/20 documented as of this encounter
--- OUTSIDE RECORDS SUMMARY | 2024-02-14 15:18 | XMS_ITS | Encounter Summary ---
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 (TSH 4.4H on 09/18/19, iCa 5.75H with Li 1.3-1.7H); Vitamin D deficiency (25vitD 14.5 on 05/16/13-> 29 on 07/07/19); Mixed hyperlipidemia Social History Tobacco Use Types Packs/Day Years [...] 1:40 PM EDT Office [place] [phone] Kristi Caicedo APRN [facility] [place] [address] documented as of this encounter Procedures Procedure Name Priority Date/Time Associated Diagnosis Comments HC CREATININE - NON BLOOD Routine 05/23/2020 8:21 AM EST Type 2 diabetes mellitus, uncontrolled, with neuropathy [place]-induced hypothyroidism and transient hypercalcemia (TSH 4.4H on 09/18/19, iCa 5.75H with Li 1.3-1.7H) Vitamin D deficiency (25vitD 14.5 on 05/16/13-> 29 on 07/07/19) Mixed hyperlipidemia HC VENIPUNCTURE Routine 05/23/2020 8:20 AM EST Diabetes mellitus due to underlying condition, uncontrolled, with complication, with long-term current use of insulin HC VITAMIN D TOTAL-25 HYDROXY Routine 05/23/2020 8:20 AM EST Type 2 diabetes mellitus, uncontrolled, with neuropathy [place]-induced hypothyroidism and transient hypercalcemia (TSH 4.4H on 09/18/19, iCa 5.75H with Li 1.3-1.7H) Vitamin D deficiency (25vitD 14.5 on 05/16/13-> 29 on 07/07/19) Mixed hyperlipidemia HC C PEPTIDE Routine 05/23/2020 8:20 AM EST Type 2 diabetes mellitus, uncontrolled, with neuropathy [place]-induced hypothyroidism and transient hypercalcemia (TSH 4.4H on 09/18/19, iCa 5.75H with Li 1.3-1.7H) Vitamin D deficiency (25vitD 14.5 on 05/16/13-> 29 on 07/07/19) Mixed hyperlipidemia HC THYROID STIMULATING HORMONE, SERUM Routine 05/23/2020 8:20 AM EST Type 2 diabetes mellitus, uncontrolled, with neuropathy [place]-induced hypothyroidism and transient hypercalcemia (TSH 4.4H on 09/18/19, iCa 5.75H with Li 1.3-1.7H) Vitamin D deficiency (25vitD 14.5 on 05/16/13-> 29 on 07/07/19) Mixed hyperlipidemia HC LDL CHOLESTEROL, DIRECT Routine 05/23/2020 8:20 AM EST Type 2 diabetes mellitus, uncontrolled, with neuropathy [place]-induced hypothyroidism and transient hypercalcemia (TSH 4.4H on 09/18/19, iCa 5.75H with Li 1.3-1.7H) Vitamin D deficiency (25vitD 14.5 on 05/16/13-> 29 on 07/07/19) Mixed hyperlipidemia HC HEMOGLOBIN A1C Routine 05/23/2020 8:2 0 AM EST Type 2 diabetes mellitus, uncontrolled, with neuropathy [place]-induced hypothyroidism and transient hypercalcemia (TSH 4.4H on 09/18/19, iCa 5.75H with Li 1.3-1.7H) Vitamin D deficiency (25vitD 14.5 on 05/16/13-> 29 on 07/07/19) Mixed hyperlipidemia HC VITAMIN B12 SERUM Routine 05/23/2020 8:20 AM EST Type 2 diabetes mellitus, uncontrolled, with neuropathy [place]-induced hypothyroidism and transient hypercalcemia (TSH 4.4H on 09/18/19, iCa 5.75H with Li 1.3-1.7H) Vitamin D deficiency (25vitD 14.5 on 05/16/13-> 29 on 07/07/19) Mixed hyperlipidemia COMPREHENSIVE METABOLIC PANEL Routine 05/23/2020 8:20 AM EST Type 2 diabetes mellitus, uncontrolled, with neuropathy [place]-induced hypothyroidism and transient hypercalcemia (TSH 4.4H on 09/18/19, iCa 5.75H with Li 1.3-1.7H) Vitamin D deficiency (25vitD 14.5 on 05/16/13-> 29 on 07/07/19) Mixed hyperlipidemia documented in this encounter Results * U Albumin/Cre Ratio (05/23/2020 8:21 AM EST) Albumin / Creatinin Ratio, Urine Not Calculated 0 - 29 mcg/mg Cr [facility] Comment: Reference Ranges: <30 mcg/mg: [...] 2, 357? 362 Albumin, Urine <3.0 mg/L [facility] Creatinine, Urine 62 mg/dL [facility] Urine specimen (specimen) 05/23/2020 8:21 AM EST 05/23/2020 8:36 AM EST Narrative Resulting Agency Comment Spec In Lab Elijah Oneal MD URINE ORDERABLES [facility] [place] [address] * (ABNORMAL) Hemoglobin A1c (05/23/2020 8:20 AM EST) Hemoglobin A1c 10.0(H) 4.3 - 5.6 % [facility] Comment: Reference Range: 4.3 - [...] Mellitus, Diabetes Care 2013; 36: Suppl. 1, S67-44 Estimated Average Glucose 241 mg/dL [facility] Comment: eAG equivalents for HbA1c [...] into estimated average glucose values. ??Diabetes Care 2008:31(8):5666-3255. Blood specimen (specimen) 05/23/2020 8:20 AM EST 05/23/2020 8:43 AM EST Narrative Resulting Agency Comment Spec In Lab Elijah Oneal MD CHEMISTRY ORDERAB LES Performing Organization Address City/[facility]/ZIP Co de Phone Number [facility] [place] [address] * C-peptide (05/23/2020 8:20 AM EST) C-Peptide 1.7 0.8 - 5.2 ng/mL [facility] Blood specimen (specimen) 05/23/2020 8:20 AM EST 05/23/2020 8:43 AM EST Narrative Resulting Agency Comment Spec In Lab Elijah Oneal MD CHEMISTRY ORDERAB LES Performing Organization Address City/[facility]/ZIP Co de Phone Number [facility] [place] [address] * (ABNORMAL) Comprehensive metabolic panel (non-fasting) (05/23/2020 8:20 AM EST) Glucose 158 65 - 199 mg/dL [facility] Comment:Diabetes: >=200 mg/d L plus symptoms Blood Urea Nitrogen 11 8 - 18 mg/dL [facility] Creatinine 0.69(L) 0.70 - 1.20 mg/dL [facility] Sodium 138 135 - 145 mmol/L [facility] Potassium 4.3 3.5 - 5.0 mmol/L [facility] Comment: Please note: ??Patients with WBC >100,000 may have falsely elevated Potassium levels. ??For accurate Potassium quantification in these patients send serum separator tube (gold top) for subsequent determinations. ??Contact the Clinical Chemistry Laboratory if there are any questions. Chloride 103 98 - 107 mmol/L [facility] Carbon Dioxide 23 22 - 31 mmol/L [facility] Anion Gap 12 5 - 15 mmol/L [facility] Calcium 9.9 8.5 - 10.5 mg/dL [facility] Protein, Total 7.1 6.1 - 8.0 gm/dL [facility] Albumin 4.7 3.2 - 5.2 gm/dL [facility] Aspartate Aminotransferase 25 0 - 30 unit/L [facility] Alanine Aminotransferase 32(H) 0 - 30 unit/L [facility] Alkaline Phosphatase 78 35 - 105 unit/L [facility] Bilirubin, Total 0.4 0.2 - 1.3 mg/dL [facility] Est Glomerular Filtration Rate 107 >=60 mL/min/1. 73 m?? [facility] Comment: This patient? s estimated [...] MD CHEMISTRY ORDERAB LES Performing Organization Address [facility]/ZIP Co de Phone Number [facility] [place] [address] * Vitamin D, 25-Hydroxy (05/23/2020 8:20 AM EST) Vitamin D Total 25 OH 38 21 - 100 ng/mL [facility] Vit D Interp Sufficient [facility] Blood specimen (specimen) 05/23/2020 8:20 AM EST 05/23/2020 8:43 AM EST Narrative Resulting Agency Comment Spec In Lab Elijah Oneal MD CHEMISTRY ORDERAB LES Performing Organization Address City/[facility] Co de Phone Number [facility] [place] [address] * Vitamin B12 (05/23/2020 8:20 AM EST) Vitamin B12 324 232 - 1,245 pg/mL [facility] Blood specimen (specimen) 05/23/2020 8:20 AM EST 05/23/2020 8:43 AM EST Narrative Resulting Agency Comment Spec In Lab Elijah Oneal MD CHEMISTRY ORDERAB LES Performing Organization Address City/[facility]/ZIP Co de Phone Number [facility] [place] [address] * TSH (05/23/2020 8:20 AM EST) Thyroid Stimulating Hormone 1.72 0.27 - 4.20 mcIU/mL [facility] Blood specimen (specimen) 05/23/2020 8:20 AM EST 05/23/2020 8:43 AM EST Narrative Resulting Agency Comment Spec In Lab Elijah Oneal MD CHEMISTRY ORDERAB LES Performing Organization Address [facility] Co de Phone Number [facility] [place] [address] * LDL Cholesterol, Direct (05/23/2020 8:20 AM EST) LDL Cholesterol, Direct 96 mg/dL [facility] Comment: Lowest Risk: <100 mg/dL Lower Risk: 100-129 mg/dL Borderline High Risk: 130-159 mg/dL High Risk: 160-189 mg/dL Very High Risk: >be=313 mg/dL Blood specimen (specimen) 05/23/2020 8:20 AM EST 05/23/2020 8:43 AM EST Narrative Resulting Agency Comment Spec In Lab Elijah Oneal MD CHEMISTRY ORDERAB LES Performing Organization Address [facility] de Phone Number [facility] [place] [address] * GAD65 Antibody Assay (05/23/2020 8:20 AM EST) Pathologist [facility] Gad65 Ab (AUGUST) 0.00 <=0.02 nmol/L [facility] Comment: ADDITIONAL INFORMATION This test was developed and its performance characteristics determined by [facility] in a manner consistent with CLIA requirements. This test has not been cleared or approved by the U.S. Food and Drug Administration. Test Performed by: [facility] - [address] [address] Speech And Hearing Director: Lloyd Barker M.D. Ph.D.; CLIA# [id number] Blood specimen (specimen) 05/23/2020 8:20 AM EST 05/23/2020 11:14 AM EST Narrative Resulting Agency Comment Spec In Lab Elijah Oneal MD LAB SEND OUT MARK LOCKETT Performing Organization Address [facility]/ZIP Co de Phone Number [facility] [place] [address] documented in this encounter Visit Diagnoses Diagnosis Diabetes mellitus due to underlying condition, uncontrolled, with complication, with long-term current use of insulin Type 2 diabetes mellitus, uncontrolled, with neuropathy Type II or unspecified type diabetes mellitus with neurological manifestations, uncontrolled [place]-induced hypothyroidism and transient hypercalcemia (TSH 4.4H on 09/18/19, iCa 5.75H with Li 1.3-1.7H) Other iatrogenic hypothyroidism Vitamin D deficiency (25vitD 14.5 on 05/16/13-> 29 on 07/07/19) Unspecified vitamin D deficiency Mixed hyperlipidemia documented in this encounter Care Teams Caustics Loader Relationship Specialty Start Date End Date Jossie Patton APRN [address] [place] [address] PCP - General Family Medicine 04/19/20 documented as of this encounter
--- OUTSIDE RECORDS SUMMARY | 2024-02-14 15:18 | XMS_ITS | Encounter Summary ---
[facility] [place] [address] Care Team Providers Care Pairer Name Role Phone Jossie Patton RADHA Primary Care Provider [phone] Encounter Details Date Type Department Care Team (Late st Contact Info) Description 09/08/2020 Telephone [place] [phone] Alexandr Deras RN Social History Tobacco Use Types Packs/Day Years Used Date Smoking Tobacco: Every Day Cigarettes Smokeless Tobacco: Never Comments:marijuana occasiona lly Sex and Gender Information Value Date Recorded Sex Assigned at Not on file Gender Identity Not on file Sexual Orientation Not on file documented as of this encounter Miscellaneous Notes * Telephone Encounter - Isis Chapa RD - 09/13/2020 12:06 PM EDT 2 Follow up emails to Marisol Gibson and Panchito Fan at [facility] sent. Scanned copy of orders also sent in case they still for some reason do not have them. Asked them to return a call or email to me to confirm that orders have been received and patient can move forward with pump start. Isis Chapa RD * Telephone Encounter - Alexandr Deras RN - 09/12/2020 10:40 AM EDT Pump start orders already faxed by Isis. * Telephone Encounter - Alexandr Deras RN - 09/08/2020 10:34 AM EDT Patient left voicemail that she needs orders for her insulin pump that she doesn't have yet. Looks like this was being worked on at the end of July. documented in this encounter Plan of Treatment Upcoming Encounters Date Type Department Care Team (Late st Contact Info) Description 02/21/2024 1:40 PM EDT Office [place] [address] Kristi Caicedo APRN [facility] [place] [address] documented as of this encounter Visit Diagnoses Not on filedocumented in this encounter Care Teams Pairer Relationship Specialty Start Date End Date Jossie Patton APRN [address] [place] [address] PCP - General Family Medicine 04/19/20 documented as of this encounter
--- OUTSIDE RECORDS SUMMARY | 2024-02-14 15:18 | XMS_ITS | Encounter Summary ---
[place] [address] Care Team Providers Care Format Proofreader Name Role Phone PoojaJossie karimi Gabrielle GARCIA Primary Care Provider [phone] Reason for Visit * Reason Onset Date Comments Prior Authorization 11/07/2020 Encounter Details Date Type Department Care Team (Late st Contact Info) Description 11/07/2020 Telephone [place] [phone] Kaia Farias Prior Authorization Social History Tobacco Use Types Packs/Day Years Used Date Smoking Tobacco: Every Day Cigarettes Smokeless Tobacco: Never Comments:marijuana occasiona lly Sex and Gender Information Value Date Recorded Sex Assigned at Not on file Gender Identity Not on file Sexual Orientation Not on file documented as of this encounter Miscellaneous Notes * Telephone Encounter - Kaia Farias - 11/08/2020 8:57 AM EDT Medication Prior Authorization Kimmy Medication name/dose/directions: Tresiba Flextouch 200mg/mL - Inject 30-60 Units subcutaneously nightly Rationale for request: Type II DM Health plan: [place] Medicaid ([facility]LY [facility]) Authorizing cash applications representative name: Martha Sent to health plan on: 11/08/20 Health plan decision: Approved Quantity approved: 18 per 60 days Authorization number: [id number] Start date: 11/08/20 End date: 05/11/21 * Telephone Encounter - Kaia Farias - 11/07/2020 7:50 AM EDT Received PA for sushil Will complete as soon as possible documented in this encounter Plan of Treatment Upcoming Encounters Date Type Department Care Team (Late st Contact Info) Description 02/21/2024 1:40 PM EDT Office [place] [address] Kristi Caicedo APRN [facility] [place] [address] documented as of this encounter Visit Diagnoses Not on filedocumented in this encounter Care Teams Format Proofreader Relationship Specialty Start Date End Date Jossie Patton APRN [address] [place] [address] PCP - General Family Medicine 04/19/20 documented as of this encounter
--- OUTSIDE RECORDS SUMMARY | 2024-02-14 15:18 | XMS_ITS | Encounter Summary ---
Author Organization [facility] Address [address] [place] [address] Care Team Providers Care Histology Technologist Name Role Phone Stephanie Santos MD Primary Care Provider [phone] Encounter Details Date Type Department Care Team (Latest Contact Info) Description 11/11/2023 Travel Social History Tobacco Use Types Packs/Day [...] on file documented as of this encounter Functional Status Functional Status Response [...] No 11/23/2015 documented as of this encounter Plan of Treatment Not on file documented as of this encounter Goals Goal Patient Goal Type Associated Problems Recent Progress Patient-Stated? Author HEMOGLOBIN A1C < 7.0 Result Component Type 2 diabetes mellitus ([facility]) 8.7(07/07/2015 5:05 EST) Annmarie Lopez documented as of this encounter Visit Diagnoses Not on filedocumented in this encounter Additional Health Concerns Infection Onset Date Last Indicated Resolved Time MRSA Comment:IP note: risk factors - DM, obesity Pos sinus 06/30/17 M Chito 07/01/17 07/01/2017 07/01/2017 documented as of this encounter Care Teams Histology Technologist Relationship Specialty Start Date End Date Stephanie Santos MD [address] [place] [address] PCP - General Family Medicine - Primary Care 11/11/23 documented as of this encounter
--- OUTSIDE RECORDS SUMMARY | 2024-02-14 15:18 | XMS_ITS | Encounter Summary ---
Author Organization [facility] Address [address] [place] [address] Care Team Providers Care Plastic Tubing Insulation Supervisor Name Role Phone Jossie Patton APRN Primary Care Provider [phone] Stephanie Santos MD Primary Care Provider [phone] Encounter Details Date Type Department Care Team (Late st Contact Info) Description 08/24/2023 Lab Requisition [facility] Pathology & Laboratory Medicine - [address] [address] Outr Resulting Lab, Provider Social History Tobacco Use Types Packs/Day Years [...] 7.0 Result Component Type 2 diabetes mellitus ([facility]) 8.7(07/07/2015 5:05 EST) No Annmarie Vigil documented as of this encounter Procedures Procedure Name Priority Date/Time Associated Diagnosis Comments SYPHILIS SEROLOGY Routine 08/24/2023 7:46 EDT documented in this encounter Results * SYPHILIS SEROLOGY (08/24/2023 7:46 EDT) Syphilis Serology Negative Negative 08/26/2023 12:01 EDT [facility] Blood VENOUS BLOOD / Unknown 08/24/2023 7:46 EDT 08/24/2023 21:24 EDT Provider Outr Resulting Lab IMMUNOLOGY A ND SEROLOGY ORDERABLES [facility] [address] [place] [address] documented in this encounter Visit Diagnoses Not on filedocumented in this encounter Additional Health Concerns Infection Onset Date Last Indicated Resolved Time MRSA Comment:IP note: risk factors - DM, obesity Pos sinus 06/30/17 M Chito 07/01/17 07/01/2017 07/01/2017 documented as of this encounter Care Teams Plastic Tubing Insulation Supervisor Relationship Specialty Start Date End Date Jossie Patton APRN [address] [place] [address] PCP - General 07/07/19 11/10/23 Stephanie Santos MD [address] [place] [address] PCP - General Family Medicine - Primary Care 11/11/23 documented as of this encounter
--- OUTSIDE RECORDS SUMMARY | 2024-02-14 15:18 | XMS_ITS | Encounter Summary ---
Author Organization [facility] [place] [address] Care Team Providers Care Guest Services Coordinator Name Role Phone Jossie Patton APRN Primary Care Provider [phone] Encounter Details Date Type Department Care Team (Late st Contact Info) Description 01/18/2021 Ancillary Procedure Radiology Library at [facility] [place] [address] Jossie Patton APRN [address] [place] [address] Social History Tobacco Use Types Packs/Day Years [...] 1:40 PM EDT Office Visit Endocrinology at [facility] [place] [address] Kristi Caicedo APRN [facility] [place] [address] documented as of this encounter Procedures Procedure Name Priority Date/Time Associated Diagnosis Comments FILM LIBRARY STORAGE ONLY MR PELVIS Routine 01/18/2021 12:00 AM EDT documented in this encounter Results * Film Library- Storage Only MR Pelvis (01/18/2021 12:00 AM EDT) Narrative RAD - 01/26/2021 4:30 PM EDT This exam is auto-finalizing. It's purpose is for storage only. Jossie Patton APRN [facility] FILM LIBRARY ORD ERABLES [place] documented in this encounter Visit Diagnoses Not on filedocumented in this encounter Care Teams Guest Services Coordinator Relationship Specialty Start Date End Date Jossie Patton APRN [address] [place] [address] PCP - General Family Medicine 04/19/20 documented as of this encounter
--- OUTSIDE RECORDS SUMMARY | 2024-02-14 15:18 | XMS_ITS | Encounter Summary ---
Author Organization [facility] [place] [address] Care Team Providers Care Director Specialty Name Role Phone PoojaJossie karimi Gabrielle GARCIA Primary Care Provider [phone] Encounter Details Date Type Department Care Team (Late st Contact Info) Description 05/27/2020 Telephone [place] [phone] Shy Lanza RN Social History Tobacco Use Types Packs/Day Years Used Date Smoking Tobacco: Every Day Cigarettes Smokeless Tobacco: Never Comments:marijuana occasiona lly Sex and Gender Information Value Date Recorded Sex Assigned at Not on file Gender Identity Not on file Sexual Orientation Not on file documented as of this encounter Miscellaneous Notes * Telephone Encounter - Shy Lanza RN - 05/27/2020 1:02 PM EST Pt states she has misplaced the chart Dr Oneal gave her to keep track of the carbs she eats andis hoping to have one mailed to her. documented in this encounter Plan of Treatment Upcoming Encounters Date Type Department Care Team (Late st Contact Info) Description 02/21/2024 1:40 PM EDT Office Visit [place] [phone] Kristi Caicedo APRN [facility] [address] [place] [place], [place] [address] documented as of this encounter Visit Diagnoses Not on filedocumented in this encounter Care Teams Director Specialty Relationship Specialty Start Date End Date Jossie Patton APRN [address] [place] [address] PCP - General Family Medicine 04/19/20 documented as of this encounter
--- OUTSIDE RECORDS SUMMARY | 2024-02-14 15:18 | XMS_ITS | Encounter Summary ---
Author Organization [facility] [place] [address] Care Team Providers Care Acquisition Specialist Name Role Phone PoojaJossie karimi Gabrielle GARCIA Primary Care Provider [phone] Encounter Details Date Type Department Care Team (Late st Contact Info) Description 07/22/2020 Tele[place] [phone] Alexandr Deras RN Social History Tobacco Use Types Packs/Day Years Used Date Smoking Tobacco: Every Day Cigarettes Smokeless Tobacco: Never Comments:marijuana occasiona lly Sex and Gender Information Value Date Recorded Sex Assigned at Not on file Gender Identity Not on file Sexual Orientation Not on file documented as of this encounter Miscellaneous Notes * Telephone Encounter - Alexandr Deras RN - 07/22/2020 12:52 PM EDT Labs routed to [facility] lab. * Telephone Encounter - Alexandr Deras RN - 07/22/2020 10:06 AM EDT Patient left voicemail that she needs some specific blood work done so she can get her insulin pump. She wants to have this done at [facility]. Unclear what she said the bloodwork was though. Returned call to patient She says she needs a C-peptide and fasting glucose. documented in this encounter Plan of Treatment Upcoming Encounters Date Type Department Care Team (Late st Contact Info) Description 02/21/2024 1:40 PM EDT Office [place] [address] Kristi Caicedo APRN [facility] [place] [address] documented as of this encounter Visit Diagnoses Diagnosis Type 2 diabetes mellitus, uncontrolled, with neuropathy Type II or unspecified type diabetes mellitus with neurological manifestations, uncontrolled documented in this encounter Care Teams Acquisition Specialist Relationship Specialty Start Date End Date Jossie Patton APRN [address] [place] [address] PCP - General Family Medicine 04/19/20 documented as of this encounter
--- OUTSIDE RECORDS SUMMARY | 2024-02-14 15:18 | XMS_ITS | Encounter Summary ---
Author Organization [facility] [place] [address] Care Team Providers Care Supervisor Hard Candy Name Role Phone Jossie Patton RADHA Primary Care Provider [phone] Encounter Details Date Type Department Care Team (Late st Contact Info) Description 09/21/2020 Telephone [place] [phone] Alexandr Deras RN Social History Tobacco Use Types Packs/Day Years Used Date Smoking Tobacco: Every Day Cigarettes Smokeless Tobacco: Never Comments:marijuana occasiona lly Sex and Gender Information Value Date Recorded Sex Assigned at Not on file Gender Identity Not on file Sexual Orientation Not on file documented as of this encounter Miscellaneous Notes * Telephone Encounter - Alexandr Deras RN - 09/23/2020 12:37 PM EDT Images from the original note were not included. Elijah Onela MD to Me 09/21/20 4:15 PM Ok to see Isamar soon this week or next week, or add to see me next week. ELIJAH ONEAL MD [facility] message to patient after failed attempt to reach by phone. * Telephone Encounter - Alexandr Deras RN - 09/21/2020 3:59 PM EDT Returned call to patient. Mailbox is full and not able to take messages. * Telephone Encounter - Alexandr Deras RN - 09/21/2020 11:14 AM EDT Patient left voicemail that her BG is still in the 300s. She says she has been taking her insulin as she was advised to do and she wants to figure out what is going on. documented in this encounter Plan of Treatment Upcoming Encounters Date Type Department Care Team (Late st Contact Info) Description 02/21/2024 1:40 PM EDT Office Visit [place] [address] Kristi Caicedo APRN [facility] [address] documented as of this encounter Visit Diagnoses Not on filedocumented in this encounter Care Teams Supervisor Hard Candy Relationship Specialty Start Date End Date Jossie Patton APRN [address] [place] [address] PCP - General Family Medicine 04/19/20 documented as of this encounter
--- OUTSIDE RECORDS SUMMARY | 2024-02-14 15:18 | XMS_ITS | Encounter Summary ---
Author Organization [facility] [place] [address] Care Team Providers Care Welding Machine Setter Name Role Phone Jossie Patton RADHA Primary Care Provider [phone] Encounter Details Date Type Department Care Team (Late st Contact Info) Description 08/29/2020 Telephone Endocrinology at [facility] [place] [address] [place] [address] Social History Tobacco Use Types Packs/Day Years Used Date Smoking Tobacco: Every Day Cigarettes Smokeless Tobacco: Never Comments:marijuana occasiona lly Sex and Gender Information Value Date Recorded Sex Assigned at Not on file Gender Identity Not on file Sexual Orientation Not on file documented as of this encounter Miscellaneous Notes * Telephone Encounter - Isis Chapa RD - 08/29/2020 8:43 AM EDT Adult Endocrinology [facility] Insulin Pump Start Orders Section A: Provider signing orders: Elijah Oneal MD Pump Company and Type: [employer] [place]: Marisol Gibson Indicate if remote virtual training is OK: yes Insulin type in pump: Humalog Section B: -New to pump: yes -Currently On Pump: No Section C: Pump Settings: Basal rates: 12:00 AM: 2.0 u/hr 07:00 AM: 2.1 u/hr Correction/Insulin Sensitivity Factor(s): 12:00 AM: 1u:20 mg/dL Insulin to Carb Ratio(s): 12:00 AM: 1u:5g carb Target BG Day: 100-120 mg/dL Night: 100-140 mg/dL Duration of Insulin Action: 3 hours Sectidon D: Special instructions pertinent to pump type Make adjustments if BG is outside of these ranges: Fasting/pre-meal 90-140 Post meal: 90-140 Bed time: 90-140 Nocturnal: 90-140 Corresponding paper form filled out and signed, and upon physician/associate provider completion, start orders are faxed to the pump company's pump hardware trainer. Confirmation received. Isis Chapa RD documented in this encounter Plan of Treatment Upcoming Encounters Date Type Department Care Team (Late st Contact Info) Description 02/21/2024 1:40 PM EDT Office [place] [address] Kristi Caicedo APRN [facility] [place] [address] documented as of this encounter Visit Diagnoses Not on filedocumented in this encounter Care Teams Welding Machine Setter Relationship Specialty Start Date End Date Jossie Patton APRN [address] [place] [address] PCP - General Family Medicine 04/19/20 documented as of this encounter
--- OUTSIDE RECORDS SUMMARY | 2024-02-14 15:18 | XMS_ITS | Encounter Summary ---
[place] [address] Care Team Providers Care Speed Reading Teacher Name Role Phone Pooja Jossie Gabrielle GARCIA Primary Care Provider [phone] Reason for Visit * Reason Onset Date Comments Pump/sensor 08/12/2020 Encounter Details Date Type Department Care Team (Late st Contact Info) Description 08/12/2020 Telephone [place] [phone] Kaia Farias Pump/sensor Social History Tobacco Use Types Packs/Day Years Used Date Smoking Tobacco: Every Day Cigarettes Smokeless Tobacco: Never Comments:marijuana occasiona lly Sex and Gender Information Value Date Recorded Sex Assigned at Not on file Gender Identity Not on file Sexual Orientation Not on file documented as of this encounter Miscellaneous Notes * Telephone Encounter - Kaia Farias - 08/12/2020 1:20 PM EDT Received CMN from [employer] Will complete as soon as possible * Telephone Encounter - Kaia Farias - 08/12/2020 1:20 PM EDT CMN from [employer]. Filled out. [address] Oneal will sign. Secretaries will fax. * Telephone Encounter - Wanda Pugh - 08/12/2020 1:20 PM EDT Faxed [employer] form to [phone] on 08/16/20 documented in this encounter Plan of Treatment Upcoming Encounters Date Type Department Care Team (Late st Contact Info) Description 02/21/2024 1:40 PM EDT Office [place] [address] Kristi Caicedo APRN [facility] [place] [address] documented as of this encounter Visit Diagnoses Not on filedocumented in this encounter Care Teams Speed Reading Teacher Relationship Specialty Start Date End Date Jossie Patton APRN [address] [place] [address] PCP - General Family Medicine 04/19/20 documented as of this encounter
--- OUTSIDE RECORDS SUMMARY | 2024-02-14 15:18 | XMS_ITS | Encounter Summary ---
[place] [address] Care Team Providers Care Fiber Optics Technician Name Role Phone Jossie Patton Gabrielle GARCIA Primary Care Provider [phone] Reason for Visit * Reason Onset Date Comments Pump/sensor 07/04/2021 Encounter Details Date Type Department Care Team (Late st Contact Info) Description 07/04/2021 [place] [address] Kaia Farias Pump/sensor Social History Tobacco Use Types Packs/Day Years Used Date Smoking Tobacco: Every Day Cigarettes Smokeless Tobacco: Never Comments:marijuana occasiona lly Sex and Gender Information Value Date Recorded Sex Assigned at Not on file Gender Identity Not on file Sexual Orientation Not on file documented as of this encounter Miscellaneous Notes * Telephone Encounter - Josiane Crabtree I - 07/14/2021 2:22 PM EDT [employer] form faxed to [phone] on 07/14/21 * Telephone Encounter - Kaia Farias - 07/10/2021 8:32 AM EDT Prescription from [employer]. Filled out. Dr. Oneal will sign. Secretaries will fax. * Telephone Encounter - Kaia Farias - 07/04/2021 7:58 AM EST Received prescription from [employer] Will complete as soon as possible documented in this encounter Plan of Treatment Upcoming Encounters Date Type Department Care Team (Late st Contact Info) Description 02/21/2024 1:40 PM EDT Office [place] [address] Kristi Caicedo APRN [facility] [place] [address] documented as of this encounter Visit Diagnoses Not on filedocumented in this encounter Care Teams Fiber Optics Technician Relationship Specialty Start Date End Date Jossie Patton APRN [address] [place] [address] PCP - General Family Medicine 04/19/20 documented as of this encounter
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
--- OUTSIDE RECORDS SUMMARY | 2024-02-14 15:18 | XMS_ITS | Encounter Summary ---
Author Organization [facility] [place] [address] Care Team Providers Care Supervisory Lifeguard Name Role Phone Pooja, Jossie Gabrielle GARCIA Primary Care Provider [phone] Encounter Details Date Type Department Care Team (Late st Contact Info) Description 08/22/2020 [place] [phone] Alexandr Deras RN Social History Tobacco Use Types Packs/Day Years Used Date Smoking Tobacco: Every Day Cigarettes Smokeless Tobacco: Never Comments:marijuana occasiona lly Sex and Gender Information Value Date Recorded Sex Assigned at Not on file Gender Identity Not on file Sexual Orientation Not on file documented as of this encounter Miscellaneous Notes * Telephone Encounter - Alexandr Deras RN - 08/22/2020 11:21 AM EDT Patient left voicemail requesting rx for insulin vials to use with pump that she will be starting soon. She would like these to go to [facility] in [place], [place] documented in this encounter Plan of Treatment Upcoming Encounters Date Type Department Care Team (Late st Contact Info) Description 02/21/2024 1:40 PM EDT Office [place] [phone] Kristi Caicedo APRN [facility] [address] [place] [address] documented as of this encounter Visit Diagnoses Not on filedocumented in this encounter Care Teams Supervisory Lifeguard Relationship Specialty Start Date End Date Jossie Patton APRN [address] [place] [address] PCP - General Family Medicine 04/19/20 documented as of this encounter
--- OUTSIDE RECORDS SUMMARY | 2024-02-14 15:18 | XMS_ITS | Encounter Summary ---
Author Organization [facility] [place] [address] Care Team Providers Care Paper Steamer Name Role Phone PoojaJossie karimi Gabrielle GARCIA Primary Care Provider [phone] Encounter Details Date Type Department Care Team (Late st Contact Info) Description 08/30/2020 Telephone [place] [phone] Alexandr Deras RN Social History Tobacco Use Types Packs/Day Years Used Date Smoking Tobacco: Every Day Cigarettes Smokeless Tobacco: Never Comments:marijuana occasiona lly Sex and Gender Information Value Date Recorded Sex Assigned at Not on file Gender Identity Not on file Sexual Orientation Not on file documented as of this encounter Miscellaneous Notes * Telephone Encounter - Arabella Soto MD - 08/30/2020 2:22 PM EDT Called patient as she has had recent BG elevations in the past few days. Reports she had been tapering off abilify and took her last dose a few days ago. No other medication changes No steroid meds Does note that she has had diarrhea since tapering of abilify. No recent antibioitc exposure. No fevers or chills, nuasea, vomiting, abdominal pain. Does also have burning on urination for the past few days. No discharge like previous yeast infections. No flank pain. Suspect she might have a UTI that is making her more insulin resistant. Unclear etiology for diarrhea which might be infectious vs ?abilify cessation. Advised her to reach out to her PCP for work up. In meantime we did discuss that we should adjust her insulin regimen: Increase Lantus to 90 units tonight Change Humalog meal coverage from 1:5 to 1:4 Change CF from 20 to 15 for BG>150: ADD the following extra insulin if your before-meal BG is higher than 150: BG 150-180 take 2 extra units BG 181-210 take 4 extra units BG 211-240 take 6 extra units BG 241-270 take 8 extra units BG 271-300 take 10 extra units BG 301-330 take 12 extra units BG >331 take 14 units and call your doctor * Telephone Encounter - Alexandr Deras RN - 08/30/2020 12:10 PM EDT Patient left voicemail that her BG has been 400s. She is taking her medications as prescribed. She is not sure what's going on. She requests a return call to discuss. Returned call to patient Had to leave voicemail requesting return call and advising her to call after hours if she has not heard anything from our office today so she can speak to an boring machine operator horizontal provider. documented in this encounter Plan of Treatment Upcoming Encounters Date Type Department Care Team (Late st Contact Info) Description 02/21/2024 1:40 PM EDT Office [place] [phone] Kristi Caicedo APRN [facility] [place] [address] documented as of this encounter Visit Diagnoses Not on filedocumented in this encounter Care Teams Paper Steamer Relationship Specialty Start Date End Date Jossie Patton APRN [address] [place] [address] PCP - General Family Medicine 04/19/20 documented as of this encounter
--- OUTSIDE RECORDS SUMMARY | 2024-02-14 15:18 | XMS_ITS | Encounter Summary ---
Author Organization [facility] [place] [address] Care Team Providers Care Automotive Tire Technician Name Role Phone Jossie Patton APRN Primary Care Provider [phone] Reason for Visit * Reason Comments Medication Refill Encounter Details Date Type Department Care Team (Late st Contact Info) Description 06/26/2021 [place] [phone] Elijah Oneal MD [facility] [place] [address] Social History Tobacco Use Types Packs/Day Years [...] 1:40 PM EDT Office [place] [address] Kristi Caicedo APRN [facility] [place] [address] documented as of this encounter Visit Diagnoses Not on filedocumented in this encounter Care Teams Automotive Tire Technician Relationship Specialty Start Date End Date Jossie Patton APRN [address] [place], [place] [address] PCP - General Family Medicine 04/19/20 documented as of this encounter
--- OUTSIDE RECORDS SUMMARY | 2024-02-14 15:18 | XMS_ITS | Referral Summary ---
Author Organization [facility] Address [address] [place] [address] Care Team Providers Care Framing Inspector Name Role Phone Stephanie Santos MD Primary Care Provider [phone] Encounters Date Type Department Care Team Description 11/20/2023 Refill [facility] [place] [address], [place] [id number] Mecca Giraldo RN Medications Refill from Last 3 Months Allergies Active Allergy Reactions Criticality Noted Date [...] PF,, adult, (HAVRIX) 1,440 ASA unit/mL syringeIndications:Florencio willams advice encounter,Need for prophylactic vaccination against hepatitis [...] 550mg Opthalmology- 08/2013 TSH- 1.06 HgbA1c- 7.4 HALFWAY Detailed - Marginal cord insertion echo - [...] 550mg Opthalmology- 08/2013 TSH- 1.06 HgbA1c- 7.4 HALFWAY Detailed - Marginal cord insertion echo - [...] & Plan: Surgery L4L5- herniated disc- Dr. Betina Verde and occasional tylenol for control Rh negative state in antepartum period 4 Overview: Screen at 28 wks with Rhogam Last Assessment & Plan: Screen at 28 wks with Rhogam Obesity complicating pregnan cy, childbirth, or puerperium, antepartum 12/11/2013 Overview: BMI- 32 discussed wt ICD10 Update Auto Replacement Episodic mood disorder (HCC-CMS) 05/07/2013 Overview: ICD10 Update Auto Replacement Suicide attempt by drug ingestion ([facility]) 12/2013 Suicidal ideation 05/01/2013 Insulin overdose 05/01/2013 [...] adul t 02/15/2005 Type 2 diabetes mellitus ([facility]) 02/15/2005 Resolved Problems Problem Noted Date Diagnosed [...] for T21, T13, T18 Influenza vaccination 02/22/2014 HALFWAY Detailed: marginal umbilical cord insertion Rhogam given 02/22/2014 Tdap vaccination 04/09/14 [ ] GBS pending [ ] Contraception [facility] - nights L&D Last Assessment & Plan: Dating: LMP consistent with a 6 week ultrasound labs Rh A negative / Abs negative /Rubella Immune / Varicella Immune / HepB negative / HIV negative / RPR NR Pap: Negative with neg HR HPV G/C: Negative Urine cx: Negative Aneuploidy screening: NIPT low risk for T21, T13, T18 Influenza vaccination 02/22/2014 HALFWAY Detailed: marginal umbilical cord insertion Rhogam given 02/22/2014 Tdap vaccination 04/09/14 [ ] GBS pending [ ] Contraception [facility] - nights L&D The patient was sent to L&D for extended monitoring. tachycardia Immunizations Name Administration Dates Next Due Hepatitis [...] IM 06/12/2022 Yellow Fever Vaccine SQ 06/12/2022 Social History Tobacco Use Types Packs/Day Years [...] Body Mass Index 32.81 11/11/2023 1259 EDT Functional Status Functional Status Response Date of [...] concentrating, remembering, or making decisions? No 11/23/2015 Plan of Treatment Not on file Goals Goal Patient Goal Type Associated Problems Recent Progress Patient-Stated? Author HEMOGLOBIN A1C < 7.0 Result Component Type 2 diabetes mellitus ([facility]) 8.7(07/07/2015 5:05 EST) Annmarie Lopez Medical Devices Implanted Type Area Airframe Design Engineer Device Identifier Shelf Expiration Date Model / Serial / Lot Mirena Iud-Mr Safe To 3t Description:Pt has a Mirena IUD as of 08-07-11 safe to 3T per safety manual 2012; [facility] Procedures Procedure Name Priority Date/Time Associated Diagnosis Comments HEPATITIS C AB W REFLEX TO HCV RNA BY PCR STAT 11/11/2023 14:52 EDT URINE [id number] NE RATIO (ACR) Routine 07/07/2019 11:39 EDT Uncontrolled type 2 diabetes mellitus with hyperglycemia ([facility]) LIPID PROFILE (INCLUDES CHOLESTEROL, TRIGLYCERIDES, HDL, LDL) Routine 07/07/2019 11:37 EDT Uncontrolled type 2 diabetes mellitus with hyperglycemia ([facility]) HEMOGLOBIN A1C Routine 07/07/2015 5:05 EST from Last 3 Months or Most Recently Relevant to Health Maintenance Results * HEPATITIS C AB W REFLEX TO HCV RNA BY PCR (11/11/2023 14:52 EDT) Hep C Antibody Negative Negative 11/12/2023 9:36 EDT [facility] Blood VENOUS BLOOD / Unknown Venipuncture / Unknown 11/11/2023 14:52 EDT 11/11/2023 15:02 EDT Annmarie Méndez PA-C CHEMISTRY & BLOOD G ORDERABLES Performing Organization Address City/[facility]/ZIP Co de Phone Number [facility] [address] [place] [address] * ALBUMIN, URINE (07/07/2019 11:39 EDT) Albumin, Urine <0.6 See Note mg/dL 2019 15:16 EDT [facility] Comment: NOTE: Reference range not established Creatinine, Urine 30.4 See Note mg/dL 07/07/2019 15:16 EDT [facility] Comment: NOTE: Reference range not established Lab Urine Albumin to Creatinine Ratio <20 <30 ug/mg Creatinine 07/07/2019 15:16 EDT [facility] Comment: Urine Albumin/Creatinine Ratio: Normal: <30 ug/mg Creatinine Moderately increased albuminuria: 30-30 ug/mg Creatinine Severley increased albuminuria: >300 ug/mg Creatinine Urine URINE SPECIMEN OBTAINED BY CLEAN CATCH PROCEDURE / Unknown Urine Collect / Unknown 07/07/2019 11:39 EDT 07/07/2019 11:40 EDT Tio Ray MD CHEMISTRY & BLOOD GAS ORDERABLES Performing Organization Address City/[facility] Co de Phone Number [facility] [address] [place] [address] * LIPID PROFILE (INCLUDES CHOLESTEROL, TRIGLYCERIDES, HDL, LDL) (07/07/2019 11:37 EDT) Cholesterol 301 See Note mg/dL 07/07/2019 16:22 EDT [facility] Comment: Acceptable: ?<200 mg/dL Borderline High: 200-239 mg/dL High: ?> or = 240 mg/dL HDL 56 See Note mg/dL 07/07/2019 16:22 EDT [facility] Comment: Low: ? <40 mg/dL Normal: ??40-60 mg/dL High: ?>60 mg/dL LDL, Calculated 0 16:22 [facility] Comment: Optimal: ? <100 mg/dL Near Optimal: ?100-129 mg/dL Borderline High: 130-159 mg/dL High: ?160-189 mg/dL Very High: ? > or = 190 mg/dL Calculated LDL invalid, triglycerides >400 mg/dL Direct LDL measurement added by reflex. Triglyceride 742 See Note mg/dL 07/07/2019 16:22 [facility] Comment: Normal: ? <150 mg/dL Borderline High: ??150 - 199 mg/dL High: ? 200 - 499 mg/dL Very High: ?> or = 500 mg/dL Chol/HDL Ratio 5.4 See Note 07/07/2019 16:22 [facility] Comment: No reference range has been established for CHOL/HDL ratio. Non HDL Cholesterol 245 See Note mg/dL 07/07/2019 16:22 [facility] Comment: Desirable: ?<130 mg/dL Borderline High: ??130-159 mg/dL High: ? 160-189 mg/dL Very High: ?> or = 190 mg/dL Blood VENOUS BLOOD / Unknown Venipuncture / Unknown 07/07/2019 11:37 EDT 07/07/2019 11:40 EDT Narrative [facility] - 07/07/2019 16:22 EDT 1 Tio Ray MD CHEMISTRY & BLOOD GAS ORDERABLES [facility] [address] [place] [address] * HEMOGLOBIN A1C (07/07/2015 5:05 EST) Hemoglobin A1C 8.7 % 07/08/2015 10:09 EST [facility] Comment: Reference Range: <5.7% Normal 5.7-6.4% Increased risk for diabetes =>6.5% Diagnostic for diabetes (if confirmed) The A1c goal for non adults in general is <7%. The A1c goal for selected patients may be significantly lower than 7% if this can be achieved without significant hypoglycemia or other adverse effects of treatment. Est Avg Glucose 203 mg/dl 6 10:09 EST [facility] Comment: eAG represents the A1c result expressed as average glucose in mg/dl. BLOOD SPECIMEN / Unknown 07/07/2015 5:05 EST 07/07/2015 17:13 EST Annette Sdihu APRN CHEMISTRY & BLOOD GA S ORDERABLES Performing Organization Address City/State/[facility] Co de Phone Number [facility] [address] [place] [address] from Last 3 Months or Most Recently Relevant to Health Maintenance Administered Medications Additional Health Concerns Infection Onset Date Last Indicated MRSA Comment:IP note: risk factors - DM, obesity Pos sinus 06/30/17 M [place] 07/01/17 07/01/2017 07/01/2017 Advance Directives For more information, please contact: [phone] * Full Code (Latest Code Status on [...] the discussion? Not Discusse d Care Teams Framing Inspector Relationship Specialty Start Date End Date Stephanie Santos MD [address] [place] [address] PCP - General Family Medicine - Primary Care 11/11/23
--- OUTSIDE RECORDS SUMMARY | 2024-02-14 15:18 | XMS_ITS | Encounter Summary ---
Author Organization [facility] [place] [address] Care Team Providers Care Heeler Machine Name Role Phone Jossie Patton APRN Primary Care Provider [phone] Encounter Details Date Type Department Care Team (Late st Contact Info) Description 06/06/2021 8:00 AM EST TH Visit (TeleHealth) [place] [address] Isamar Hoff LEATHER TOOLER [facility] [place] [address] Type 2 diabetes mellitus, uncontrolled, with neuropathy; Vitamin D deficiency Social History Tobacco Use Types Packs/Day Years Used Date Smoking Tobacco: Every Day Cigarettes Smokeless Tobacco: Never Comments:marijuana occasiona lly Sex and Gender Information Value Date Recorded Sex Assigned at Not on file Gender Identity Not on file Sexual Orientation Not on file documented as of this encounter Patient Instructions * Patient Instructions* Isamar Hoff APRN - 06/06/2021 9:10 AM EST Plan: Call Dexcom for new transmitter --Medications: Increase Trulicity to 1.5mg weekly dosing Increase nightly Tresiba to 55 units a day Continue current pump settings --Monitoring: with CGM check BGs fasting in [...] exercise as tolerated to keep weight down. --Prevention: update your pneumonia vaccine --F/U lab for: Routed labs to [facility], B12, A1C, U alb/crea, creatinine, LDL, vit D (updatenext week) --RTC: Next visit in 3 months. documented in this encounter Progress Notes * Isamar Hoff APRN - 06/06/2021 8:00 AM EST Images from the original note were not included. Date of Visit: 06/06/2021 Patient is aware that this will be a telemedicine/telephone visit and understands that this might be billed as a regular office visit. Patient's location and were confirmed prior to the start of the visit. She was unable to log into the system today so we continued this visit by phone. Reason for Visit: Follow-up diabetes Brief History: Guzman Jean is a 45 y.o. female with PMH significant for T2DM. She also has a hx of PCOS, HTN, HLP, OA, depression, anxiety, LBP, vitD deficiency. She switched from??multiple daily injections??to insulin pump in September (Medtronic 670G) & Dexcom G6 CGM. She is a regular patientof Dr. Oneal. Interval Hx: Unable to upload carelink report. No recent laboratory update. She adds U200 Tresiba 50 units at night to help with additional basal needs and to prevent pump from running out of insulintoo quickly due to her high insulin requirement. She is not very comfortable making pump setting changes on her own. She states that her Dexcom transmitter is not working, calling for a new one. She also reports thatbreee had covid, diagnosed May 12 and blood sugars were high during that time. She reports today that her fasting BGs remain in the 200s. She was started on Truliicty at last visit and feels thatthis is working well, sugars have gone down and decreased appetite, no nausea. Continues to smoke, no interest in quitting at this time Plan from previous visit note: Kavya 01/31/21 Plan: [email or web address] - invitation sent to share Dexcom data --Medications: Adding Ozempic, reviewed titration schedule, review side effects Increase tresiba nightly to 55 units ?? --Monitoring: with CGM check BGs fasting in am, before each meal, 1-2 hours after meals and at bedtime. ?Target fasting blood sugars 90-140 ?pre-meal during daytime 90-150 ?1-2 h post meal below 180 ?Target A1c 7% for this patient. ?? --Patient will keep log of blood glucose and insulin used for review at next visit or bring CGM reader for download ?? --Diet and exercise: low fat/controlled carb diet & exercise as tolerated to keep weight down. --RTC: Next visit in??1??month, review CGM and medication changes Diabetes History: Last A1C was 10.4% 12/27/2020 ?? Most recent A1C: Recent Labs 05/23/20 0820 HA1C 10.0* ? Guzman Jean diabetes diagnosed age 20 ? Current Diabetes Medications: Basal rates: MN - 7AM 2u/hr 7am MN 2.1 u/hr ?? CR 1:5 ISF 20 ?? Tresiba U200 50 units in pm for additional basal coverage Metformin 1000mg BID Trulicity 0.75mg weekly ?? Glucose Monitoring: Sensor:Dexcom G6 Justification for testing > 3x a day to prevent severe hyperglycemia, widely fluctuating BS, overnight hypoglycemia Meter uploaded today: yes ?? Duration of need: lifetime Pump/Sensor information: Frequency of set changes: Every 2.5 Days Hypoglycemia Awareness: yes BG testing > than 5 if having hypoglycemia occurrances Frequency of episodes needing assistance none Medical Alert bracelet: Hyperglycemia: History of DKA: no Diabetes Complications Review: Eyes:No retinopathy Kidneys:No awareness of microalbuminuria, Feet: Normal shape, no history of foot ulcers, sometimes burning/numbness/tingling, no previous decreased sensation to monofilament testing, no prior amputations, Autonomic: No history of gastroparesis, problems emptying bladder, inability to detect hypoglycemia, or tachycardia Cardiac:No history of CAD, cardiac stents, cardiac bypass surgery,CHF, PVD, CVA Diabetes Prevention: Last eye exam: yes appt 06/20 Regular professional builder: Special shoes: Dental visits regular: no dental care Flu vaccine: 2020 COVID Vaccine: x 3 Pneumovax and Prevnar: no Kidney protection On PHILIPPE-I or ARB: yes Heart protection On low dose ASA: On Statin: yes rosuvastatin - switched in February Last urine protein measurement: Lab Results Component Value Date MICROALBUR <3.0 05/23/2020 Last Kidney function: Lab Results Component Value Date CREATININE 0.69 (L) 05/23/2020 Last lipid panel: Lipid Panel Lab Results Component Value Date LDLDIRECT 96 05/23/2020 Current Medications: Medications 04/17/21 1539 Medication Sig Taking? Trulicity 1.5 mg/0.5 mL Pen Injector Inject 0.5 mLs subcutaneously once a week. rosuvastatin (Crestor) 20 mg Tablet insulin needles, disposable, 31 gauge x 3/16 Needle 1 each by [facility]Non-Drug; Combo Route) route daily. cariprazine (Vraylar) 3 mg Capsule Take 3 mg by mouth daily. Insulin Tresiba FlexTouch U-200 200 unit/mL (3 mL) Insulin Pen Inject 30-60 Units subcutaneously nightly. Indications: type 2 diabetes mellitus humaLOG Solution Inject 120-150 Units subcutaneously daily. In insulin pump daily glucagon, Human Recombinant, (Glucagon Emergency Kit, human,) [...] 50 mg by mouth Every 6 hours. ranitidine (ZANTAC) 150 mg Tablet Take 300 mg by mouth Twice daily. nicotine (NICODERM CQ) 21 mg/24 hr Patch 24 hr APPLY TO HAIRLESS SKIN DAILY, ROTATE SITES metFORMIN (GLUCOPHAGE) 1,000 mg Tablet Take 2,000 mg by mouth daily. lithium CR (Lithobid) 300 mg Tablet Sustained Release 450 in the morning, 300 at bedtime Has met with RD? Carb counts Special Diet 3 meals/day * Breakfast: Scrambled eggs and mayo * Lunch skips * Dinner: Grilled chicken and rice * Drinks: * snacks: Polar orange diet soada or zero gatorade Exercises: Walking limited REVIEW OF SYSTEMS: Constitutional: + 7 pound weight loss, no fevers, chills, fatigue, denies sleep disturbances Endocrine: No increased thirst or urination, heat/cold intolerance Eyes: + vision changes - blurry and cant read close up - scheduled eye appt 06/20 ENT: No dysphagia, dental issues Cardiovascular: No chest pain, palpitations Respiratory: No wheezing , shortness of breath GI: No nausea, vomiting, diarrhea, constipation : No frequent urinary tract infections, dysuria, hematuria Neurological: No weakness or numbness, dizziness Skin/Feet: No current diabetic foot ulcers/open area, no darkening of skin or skin changes Physical Exam: There were no vitals taken for this visit. Assessment: Patient is a 45 y.o. female with PMH significant for T2DM. She also has a hx of PCOS, HTN, HLP, OA,depression, anxiety, LBP, vitD deficiency. She is an every day smoker and has no interest in quitting at this time. She is now using a Medtronic 670G pump & DexPetroDE G6 CGM. Due to high insulin requirements also requires Tresiba administration to help with basal requirements. Fasting BGs remain elevated in the 200s. Diabetes is currently poorly controlled, last A1C of 10.0%, agrees to update labs in the next week at [facility]. Was started on Trulicity at last visit, tolerating well and reports benefit of 7 pound weight loss and lower blood sugars. Review of AHA/ACC/ADA and Endocrine Society clinical practice guidelines, recommend that a moderateintensity statin should be started at age 40 in those with diabetes regardless of ASCVD risk. Goal LDL should be < 70 in general and < 55 in those with established cardiovascular disease or multiple risk factors. LDL not at goal, switched statins in February, will update LDL with labs. BP not checked today Plan: Call Dexcom for new transmitter --Medications: Increase Trulicity to 1.5mg weekly dosing Increase nightly Tresiba to 55 units a day Continue current pump settings --Monitoring: with CGM check BGs fasting in [...] exercise as tolerated to keep weight down. --Prevention: update your pneumonia vaccine --F/U lab for: Routed labs to [facility], B12, A1C, U alb/crea, creatinine, LDL, vit D (updatenext week) --RTC: Next visit in 3 months. 50 minutes were spent reviewing the medical record and available tests, [facility], counseling the patient on medications, recommending changes to insulin dosing, reviewing management of hypoglycemia, in review of CGM download and in prescription management, I have reviewed the plan outlined above with the patient and patient has verbalized understanding. documented in this encounter Plan of Treatment Upcoming Encounters Date Type Department Care Team (Late st Contact Info) Description 02/21/2024 1:40 PM EDT Office [place] [phone] Kristi Caicedo APRN [facility] [place] [address] documented as of this encounter Visit Diagnoses Diagnosis Type 2 diabetes mellitus, uncontrolled, with neuropathy Type II or unspecified type diabetes mellitus with neurological manifestations, uncontrolled Vitamin D deficiency Unspecified vitamin D deficiency documented in this encounter Care Teams Heeler Machine Relationship Specialty Start Date End Date Jossie Patton APRN [address] [place] [address] PCP - General Family Medicine 04/19/20 documented as of this encounter
--- OUTSIDE RECORDS SUMMARY | 2024-02-14 15:18 | XMS_ITS | Encounter Summary ---
Author Organization [facility] [place] [address] Care Team Providers Care Crayon Molding Machine Operator Name Role Phone Jossie Patton APRN Primary Care Provider [phone] Reason for Referral * Consultation (Routine) - Closed Specialty Diagnoses / Procedures Referred By Savannah ashton Referred To Contact Sleep Center Diagnoses Sleep disorder Jossie Patton APRN [address] [place] [address] [facility] Sleep Medicine [address] [place] [address] Referral ID Status Reason Start Date Expiration Date V isits Requested Visits Authorized [id number] Closed Consult, Test & Treat 06/28/2021 06/28/2022 6 6 Encounter Details Date Type Department Care Team (Late st Contact Info) Description 06/28/2021 Transcribe [place] [address] Jossie Patton APRN [address] [place] [address] Sleep disorder Social History Tobacco Use Types [...] 1:40 PM EDT Office [place] [address] Kristi Caicedo APRN [facility] [place] [address] Scheduled Referrals Name Type Priority Associated Diagnoses Orde r Schedule Referral to Sleep Disorders Center Outpatient Referral Routine Sleep disorder Ordered: 06/28/2021 documented as of this encounter Visit Diagnoses Diagnosis Sleep disorder Sleep disturbance, unspecified documented in this encounter Care Teams Crayon Molding Machine Operator Relationship Specialty Start Date End Date Jossie Patton APRN [address] [place] [address] PCP - General Family Medicine 04/19/20 documented as of this encounter
--- OUTSIDE RECORDS SUMMARY | 2024-02-14 15:18 | XMS_ITS | Encounter Summary ---
Author Organization [facility] [place] [address] Care Team Providers Care Stick Inserter Name Role Phone Jossie Patton APRN Primary Care Provider [phone] Reason for Visit * Consultation (Routine) - Closed Specialty Diagnoses / Procedures Referred By Savannah t Referred To Contact Endocrinology Diagnoses Type 2 diabetes mellitus, uncontrolled, with neuropathy Elijah Oneal MD [facility] [address] [place] [id number]a [address] [facility] [place] [address] Referral ID Status Reason Start Date Expiration Date V isits Requested Visits Authorized [id number] Closed Continuity of Care 05/21/2020 05/21/2021 1 1 Encounter Details Date Type Department Care Team (Late st Contact Info) Description 05/23/2020 8:00 AM EST Office Visit Endocrinology at [facility] [place] [place] [phone] [facility] [address] Type 2 diabetes mellitus, uncontrolled, with neuropathy Social History Tobacco Use Types Packs/Day Years Used Date Smoking Tobacco: Every Day Cigarettes Smokeless Tobacco: Never Tobacco Cessation:Ready to Q uit: No; Counseling Given: No Comments:marijuana occasionally Sex and Gender Information Value Date Recorded Sex Assigned at Not on file Gender Identity Not on file Sexual Orientation Not on file documented as of this encounter Last Filed Vital Signs Vital Sign Reading Time Taken Comments Blood Pressure 140/51 05/23/2020 8:38 AM EST Pulse 77 05/23/2020 8:38 AM EST Temperature 37.4 ??C (99.3 ??F) 05/23/2020 8:38 AM ES T Respiratory Rate - - Oxygen Saturation 98% 05/23/2020 8:38 AM EST Inhaled Oxygen Concentration - - Weight 100 kg (220 lb 6.4 oz) 05/23/2020 8:38 AM EST Height 152.4 cm (5') 05/23/2020 8:38 AM EST Body Mass Index 43.04 05/23/2020 8:38 AM EST documented in this encounter Progress Notes * Isis Chapa RD - 05/23/2020 8:00 AM EST Adult Endocrinology Diabetes Education and Nutrition Services Encounter for DM Edu Asked to see patient to educate regarding Dexcom G6 start. She has already started a Dexcom G6 and has been on the device for about 1 month now. Her and her mother report they are here to discuss insulin pump with Dr. Oneal today. Ryan forgot her Dexcom G6 consumer affairs director so we can't upload it and G6 lencho is not compatible with her phone. Provided written instructions so she can upload from home. Went over instructions verbally with patient and her mom. Discussed if Dr. Oneal thinks insulin pump is appropriate to her treatment plan, that she can see for me carb counting visit and pre-pump education visit. Guzman does not currently carb count and expressed interest in learning how to do this, claudia if give OK to prescribe pump by Dr. Oneal. Isis Chapa RD documented in this encounter Plan of Treatment Upcoming Encounters Date Type Department Care Team (Late st Contact Info) Description 02/21/2024 1:40 PM EDT Office [place] [address] Kristi Caicedo APRN [facility] [address] [place] [address] Scheduled Referrals Name Type Priority Associated Diagnoses Orde r Schedule Referral to Nutrition Services Outpatient Referral Routine Type 2 diabetes mellitus, uncontrolled, with neuropathy Ordered: 05/21/2020 documented as of this encounter Visit Diagnoses Diagnosis Type 2 diabetes mellitus, uncontrolled, with neuropathy Type II or unspecified type diabetes mellitus with neurological manifestations, uncontrolled documented in this encounter Care Teams Stick Inserter Relationship Specialty Start Date End Date Jossie Patton APRN [address] [place] [address] PCP - General Family Medicine 04/19/20 documented as of this encounter
--- OUTSIDE RECORDS SUMMARY | 2024-02-14 15:18 | XMS_ITS | Encounter Summary ---
[place] [address] Care Team Providers Care Logistics Analytics Manager Name Role Phone Jossie Patton APRN Primary Care Provider Reason for Referral * Consultation (Routine) - Closed Specialty Diagnoses / Procedures Referred By Contac t Referred To Contact Pain and Spine Center Diagnoses Intervertebral disc disorder with radiculopathy of lumbar region Paul Cordova PA [facility] [place] [address] [facility] [place] [address] Referral ID Status Reason Start Date Expiration Date Visits Requested Visits Authorized [id number] Closed Pain Interventional Procedure 04/10/2022 3 3 Reason for Visit * Reason Comments Back Pain Left Hip Pain * Consultation - Closed Specialty Diagnoses / Procedures Referred By Contac t Referred To [facility] Diagnoses Low back pain, unspecified Trochanteric bursitis, left hip Spine- low back pain/ disc herniation L4-5/ Trochanteric bursitis L hip/ MRI L&P 01/18/21 in [facility] Jossie Patton APRN [address] [place] [id number] [facility] [place] [address] Referral ID Status Reason Start Date Expiration Date Visits Re quested Visits Authorized [id number] Closed 02/10/2021 02/10/2022 1 1 Encounter Details Date Type Department Care Team (Latest Contact Info) Description 04/10/2021 9:00 AM EST Office Visit [facility] at [facility] [place] [address] Paul Cordova PA [facility] [place] [address] Intervertebral disc disorder with radiculopathy of lumbar region Social History Tobacco Use Types Packs/Day Years Used Date Smoking Tobacco: Every Day Cigarettes Smokeless Tobacco: Never Comments:marijuana occasiona lly Sex and Gender Information Value Date Recorded Sex Assigned at Not on file Gender Identity Not on file Sexual Orientation Not on file documented as of this encounter Last Filed Vital Signs Vital Sign Reading Time Taken Comments Blood Pressure 152/83 04/10/2021 8:54 AM EST Pulse 84 04/10/2021 8:54 AM EST Temperature - - Respiratory Rate - - Oxygen Saturation - - Inhaled Oxygen Concentration - - Weight 95.3 kg (210 lb) 04/10/2021 8:54 AM EST Height 152.4 cm (5') 04/10/2021 8:54 AM EST Body Mass Index 41.01 04/10/2021 8:54 AM EST documented in this encounter Progress Notes * Paul Cordova PA - 04/10/2021 9:00 AM EST Images from the original note were not included. [facility] Paul Cordova PA-C Dear Colleagues, I had the pleasure of seeing this patient at the [facility] @ [facility] for evaluation. Chief Complaint: Low back pain, left lower extremity pain Assessment/plan: Diagnosis: 1) Lumbar radiculopathy 2) Low back pain Guzman is a 45 year old female with a history of diabetes who presents to clinic for evaluation of low back pain, groin/anterior thigh pain, and posterior thigh pain. This has been ongoing for 4 months after a fall while sleepwalking. Treatments have ranged from physical therapy, OTC medications, gabapentin, and oral steroids (which impacted glucose control significantly). There has been no overall improvement over time. We discussed that she does have a finding on MRI of a disc that is contacting a nerve. Her pain pattern is somewhat atypical in that it is posterior thigh as well as anterior thigh. Based on exam there are no alarming or concerning findings. We discussed options moving forward including continued conservative management including PT and medications. We also discussed that injections are an option and may or may not help. She would like to move forward with injections as she feels that other conservative measures have failed. I told her that she would need to see another provider of this, especially given her history of diabetes. I think an epidural would likely provide relief, but also would entertain the idea of a trochanteric bursal injection as she was quite tender. See below for more details HPI: Guzman is a 45 year old female who has a history of DMII treated with insulin pump, PCOS, HTN, who presents to clinic for evaluation of low back pain that radiates into left lower extremity. She describes the pain as a dull achy sensation that travels from low back to groin, anterior thigh, as well as posterior thigh. This started about 4 months ago which she believes may have started from a fall while sleepwalking. She has done physical therapy, chiropractic, massage, TENS, tylenol, ibuprofen, gabapentin and cyclobenzaprine. She has also done a medrol dose pack which temporarily improved her symptoms but had her glucose levels significantly affected. She finds that laying is most comfortable and sitting in a recliner is most bothersome. She denies any numbness, tingling, weakness, gait disturbances, bowel/bladder changes, saddle anesthesia, or constitutional symptoms. 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 Lisinopril Patient Active Problem List Diagnosis ? ? Vitamin D deficiency (25vitD 14.5 on 05/16/13-> 29 on 07/07/19) ??? 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 Type 2 diabetes mellitus ROS: As above in HPI Imaging: Reviewed MRI obtained 01/18/21 of lumbar spine. This shows a well aligned lumbar spine without significant central stenosis. At L4-5 level there is a left sided foraminal disc herniation that is impinging on the exiting nerve root. Physical Exam: Patient is resting comfortably in the room in no acute distress. Ambulates without assistive device. Able to toe, heel, tandem gait. Has tenderness to palpation in midline in low back. Tenderness about bilateral SI, left sciatic notch, and left trochanteric bursa. Limited forward flexion to about 70 due to pain. No pain with extension. Normal sensory exam. Motor 5/5 throughout bilateral lower extremities. Reflex 1+ left patella, 2+ at right patella and bilateral achilles. Pain with straight legraise on left. No clonus. Negative babinski. No clonus. Assessment/Plan: Guzman is a 45 year old female with a history of diabetes who presents to clinic for evaluation of low back pain, groin/anterior thigh pain, and posterior thigh pain. This has been ongoing for 4 months after a fall while sleepwalking. Treatments have ranged from physical therapy, OTC medications, gabapentin, and oral steroids (which impacted glucose control significantly). There has been no overall improvement over time. We discussed that she does have a finding on MRI of a disc that is contacting a nerve. Her pain pattern is somewhat atypical in that it is posterior thigh as well as anterior thigh. Based on exam there are no alarming or concerning findings. We discussed options moving forward including continued conservative management including PT and medications. We also discussed that injections are an option and may or may not help. She would like to move forward with injections as she feels that other conservative measures have failed. I told her that she would need to see another provider of this, especially given her history of diabetes. I think an epidural would likely provide relief, but also would entertain the idea of a trochanteric bursal injection as she was quite tender. Thank you for letting me participate in this patient's care. Sincerely, Paul Cordova PA-C [facility] documented in this encounter Plan of Treatment Upcoming Encounters Date Type Department Care Team (Late st Contact Info) Description 02/21/2024 1:40 PM EDT [place] [address] Kristi Caicedo APRN [facility] [place] [address] Scheduled Referrals Name Type Priority Associated Diagnoses Orde r Schedule Referral to Pain and Spine Center (Internal only) Outpatient Referral Routine Intervertebral disc disorder with radiculopathy of lumbar region Ordered: 04/10/2021 documented as of this encounter Visit Diagnoses Diagnosis Intervertebral disc disorder with radiculopathy of lumbar region Thoracic or lumbosacral neuritis or radiculitis, unspecified documented in this encounter Care Teams Logistics Analytics Manager Relationship Specialty Start Date End Date Jossie Patton APRN [address] [place] [address] PCP - General Family Medicine 04/19/20 documented as of this encounter
--- OUTSIDE RECORDS SUMMARY | 2024-02-14 15:18 | XMS_ITS | Encounter Summary ---
Author Organization [facility] [place] [address] Care Team Providers Care Life Enrichment Specialist Name Role Phone Pooja Jossie Gabrielle GARCIA Primary Care Provider [phone] Reason for Visit * Reason Comments Pain Management new patient / Brief * Consultation (Routine) - Closed Specialty Diagnoses / Procedures Referred By Contac t Referred To Contact Pain and Spine Center Diagnoses Intervertebral disc disorder with radiculopathy of lumbar region Paul Cordova PA [facility] [place] [address] [facility] [place] [address] Referral ID Status Reason Start Date Expiration Date Visits Requested Visits Authorized [id number] Closed Pain Interventional Procedure 04/10/2022 3 3 Encounter Details Date Type Department Care Team (Late st Contact Info) Description 04/17/2021 3:00 PM EST Office Visit [place] [address] Mame Fuentes MD [facility] [place] [address] Pain in left hip; Groin pain, left; Lower extremity pain, left Social History Tobacco Use Types Packs/Day Years Used Date Smoking Tobacco: Every Day Cigarettes Smokeless Tobacco: Never Comments:marijuana occasiona lly Sex and Gender Information Value Date Recorded Sex Assigned at Not on file Gender Identity Not on file Sexual Orientation Not on file documented as of this encounter Last Filed Vital Signs Vital Sign Reading Time Taken Comments Blood Pressure 176/72 04/17/2021 2:53 PM EST Pulse 102 04/17/2021 2:53 PM EST Temperature - - Respiratory Rate - - Oxygen Saturation 96% 04/17/2021 2:53 PM EST Inhaled Oxygen Concentration - - Weight 95.3 kg (210 lb) 04/17/2021 2:53 PM EST Height - - Body Mass Index 41.01 04/10/2021 8:54 AM EST documented in this encounter Progress Notes * Mame Fuentes MD - 04/17/2021 3:00 PM EST Images from the original note were not included. PREPROCEDURE HISTORY AND PHYSICAL Date of Visit: April 17, 2021 Chief Complaint: Back pain, groin pain HPI: Subjective Guzman Jean is a 45 y.o. female with history of DMII with insulin pump, tobacco use disorder, B12 deficiency, HTN, high BMI, .fatty liver, Depression, BPD, anxiety,Insulin overdose with S/I in 2013, who presents today for Question of LESI vs bursa. Symptoms of back pain groin/anterior thigh pain posterior thigh pain. referred by Dr. Nazario, BASILIO Crandall. The history is obtained from the patient, and I have reviewed medical records provided by the referring physician and located in the electronic medical record to fill in gaps in the patient's recollection of events, treatments and outcomes. The patient has had symptoms since around September. Symptoms started after a fall down stairs. This includes the groin pain. Trialed: physical therapy, chiropractic, massage, TENS, Tylenol, ibuprofen, gabapentin cyclobenzaprine. medrol dose pack -temporarily improved her symptoms but had her glucose levels significantly affected She was evaluated by BASILIO Crandall 04/10/2021. Per his note from that date:We discussed that she does have a finding [...] feels that other conservative measures have failed. She has been evaluated for left hip pain in the past at [facility]. Alberto Moffett MD - 05/21/2012 [address] [facility] PROBLEM: 1. Left hip pain. a. Left arthroscopic labral repair 02/08/12. SUBJECTIVE: Guzman comes in for scheduled follow up. She is still having problems with her left hip.She describes groin pain, buttock pain and a sense of weakness. She has mechanical symptoms. She isstill doing physical therapy. ASSESSMENT AND PLAN: It is difficult to say what the source of all of her problems is. I reviewed her arthroscopy photos. Aside from the labral tear she really did not have any identifiable pathologyin her hip joint. She has had some trauma after surgery, but I think it is unlikely she has a majorstructural problem in her hip joint. I am not sure that all of her pain is even coming from her hipjoint, namely her posterior pain. As had discussed at a previous visit, I thought the next step would be a left hip joint injection with corticosteroid, which may yield both diagnostic and therapeutic benefit. She will follow up with me by phone after the injection. LOCATION: left groin, central low back vs upper buttock, pain LEFT posterior thigh pain. It goes tothe knee. PAIN DESCRIPTION: aching, sharp or stabbing PRESENT: all of the time. PAIN INCREASED BY:walking, sitting, lying down. PAIN DECREASED BY: ice. PAIN LEVEL AT REST 6 PAST MEDICAL HISTORY: No past medical history on file. PAST SURGICAL HISTORY: No past surgical history on file. ALLERGIES: Lisinopril MEDICATIONS: Current Outpatient Medications on File Prior to Visit Medication Sig Dispense Refill ??? Trulicity 0.75 mg/0.5 mL Pen Injector Inject 0.75 mg subcutaneously once a week. 6 mL 3 ??? insulin needles, disposable, 31 gauge x 3/16 Needle 1 each by [facility].(Non- Drug; Combo Route) route daily. 90 each 3 ??? cariprazine (Vraylar) 3 mg Capsule Take 3 mg by mouth daily. ??? Insulin Tresiba FlexTouch U-200 200 unit/mL (3 mL) Insulin Pen Inject 30-60 Units subcutaneously nightly. Indications: type 2 diabetes mellitus 10 Syringe 3 ??? humaLOG Solution Inject 120-150 Units subcutaneously daily. In insulin pump daily 150 mL 3 ??? spironolactone (ALDACTONE) 50 mg Tablet Take 1 tablet by mouth 2 times daily. 180 tablet 4 ??? glimepiride (AMARYL) 4 mg Tablet [...] mouth Daily. ??? blood sugar diagnostic strips (GetbazzaTouch Verio test strips) Strip USE TO CHECK BLOOD GLUCOSE TWICE DAILY DX E11.9 ??? Blood-Glucose Meter (GetbazzaTouch Verio Flex meter) Misc USE TO CHECK BLOOD GLUCOSE TWICE DAILY DX E11.9 ??? cholecalciferol, Vitamin D3, 50 mcg (2,000 unit) Capsule Take 1 tablet by mouth Daily. ??? cyclobenzaprine (Flexeril) 10 mg Tablet TAKE 1 TABLET BY MOUTH THREE TIMES A DAY NEEDED ??? irbesartan (AVAPRO) 150 mg Tablet Take 150 mg by mouth Daily. ??? ibuprofen (Advil;Motrin) 400 mg Tablet Take 400 mg by mouth Every 4 hours as needed. ??? labetaloL (Normodyne) 100 mg Tablet Take 100 mg by mouth Twice daily. ??? simvastatin (Zocor) 40 mg Tablet TAKE 1 TABLET BY MOUTH EVERYDAY AT BEDTIME ??? ranitidine (ZANTAC) 150 mg Tablet Take 300 mg by mouth Twice daily. ??? metFORMIN (GLUCOPHAGE) 1,000 mg Tablet Take 2,000 mg by mouth daily. ??? gabapentin (NEURONTIN) 600 mg Tablet Take 1 tablet by mouth 2 times daily. 60 tablet 11 ??? ergocalciferoL, vitamin D2, (vitamin D) 50,000 unit Capsule Take 1 capsule by mouth once a week. (Patient not taking: Reported on 04/10/2021) 13 capsule 4 ??? dexmethylphenidate (FOCALIN) 10 mg Tablet Take 10 mg by mouth Three times a day. ??? hydrOXYzine (VISTARIL) 50 mg Capsule TAKE 1 TO 2 CAPSULES BY MOUTH EVERY DAY AT BEDTIME ??? lamoTRIgine (LaMICtal) 150 mg Tablet TAKE 1 TABLET BY MOUTH EVERY DAY IN THE MORNING ??? traMADoL (Ultram) 50 mg Tablet Take 50 mg by mouth Every 6 hours. ??? nicotine (NICODERM CQ) 21 mg/24 hr Patch 24 hr APPLY TO HAIRLESS SKIN DAILY, ROTATE SITES ??? lithium CR (Lithobid) 300 mg Tablet Sustained Release 450 in the morning, 300 at bedtime No current facility-administered medications on file prior to visit. SOCIAL HISTORY: Social History Socioeconomic History ??? Marital status: [...] Vaping Use ??? Vaping Use: Never used Substance and Sexual Activity ??? Alcohol use: Not on file ??? Drug use: Not on file ??? Sexual activity: Not on file Other Topics Concern ??? Not on file Social History Narrative ??? Not on file Social Determinants of Health Financial Resource Strain: Not on file Food Insecurity: Not on file Transportation Needs: Not on file Physical Activity: Not on file Housing Stability: Not on file ROS: Pt denies recent fever, chills, infection, wounds, hospitalizations, ED visits, use of antibiotics or steroids within the past 2 weeks. The patient does take NSAID.ibuprofen The patient does not take anticoagulants, ASA. PHYSICAL EXAM: BP 176/72 Pulse (!) 102 Wt 95.3 kg (210 lb) SpO2 96% BMI 41.01 kg/m?? Physical Exam HENT: Head: Normocephalic. Eyes: General: No scleral icterus. Pulmonary: Effort: Pulmonary effort is normal. Neurological: Mental Status: She is alert. Psychiatric: Mood and Affect: Mood normal. Behavior: Behavior normal. Thought Content: Thought content normal. Judgment: Judgment normal. LUMBAR SPINE EXAMINATION: Inspection: Scar: No ; Obvious rash or infection: No Gait:normal gait and station Range of motion: restricted with lumbar spine flexion, extension Left Right Muscle spasm No No Sacroiliac joint tenderness Yes No Facet joint tenderness No No Dao's test (facet loading) Negative Negative Paraspinous region tenderness No No Heel walk Normal Normal Toe walk Normal Normal Straight leg raise negative negative HIP EXAMINATION: Left Right Range of motion restricted with internal and external rotation. unrestricted with internal and external rotation. Groin pain with range of motion? Positive Negative Trochanteric bursa tenderness? Positive Psoas tenderness? Piriformis muscle tenderness Cluneal nerve region tenderness Positive Negative SI JOINT EXAMINATION: Left Right Compression negative negative Gaenslen negative negative BISHNU negative negative Araceli Finger Test negative negative Motor Strength: Test Muscle Root Right Left Hip Flexion Iliopsoas (femoral nerve) L123 5 5 Hip Adduction obturator L234 5 5 Hip Abduction superior gluteal L45S1 5 5 Hip Extension Gluteus frandy (inferior gluteal) L5S12 5 5 Knee Flexion Hamstrings (sciatic) L45S1 5 5 Knee Extension Quadriceps (femoral) L234 5 5 Ankle Dorsiflexion Anterior tibial (deep peroneal) L45 5 5 Ankle Inversion Posterior tibialis (tibial) L45 Great toe extension Extensor hallicus longus (deep peroneal) L5 5 5 Ankle Eversion Peroneus longus and brevis (superficial peroneal) L5S1 Ankle Plantar Flexion Gastroc (tibial) L5S12 5 5 Reflexes: Segment Tendon LEFT RIGHT C5 Biceps C6 Brachioradialis C7 Triceps Upper Patel L3-4 Patella 0.5+ 0.5+ S1 Ankle 1+ 1+ Lower Babinski Clonus Sensory: Light Touch (0=absent, 1-impaired, 2=normal) Segment location Right Left L1 upper inner thigh 2 2 L2 mid-ant thigh 2 2 L3 med femoral condyle 2 2 L4 medial mal 2 2 L5 dorsum foot, 3rd MT 2 2 S1 lat heel 2 2 S2 Popliteal fossa 2 2 RADIOLOGIC DATA: MRI reviewed BY MY VIEW L4-5LEFT FORAMINAL PROTRUSION, CONTACTING LEFT EXITING NERVE ROOT LABS/DX RESULTS: Last 3 wbc, hgb, hct plt No results for input(s): WBC, HGB, HCT, PLATELET in the last 7068 hours. Last 3 Lytes No results for input(s): NA, K, CL, CO2, BUN, CREATININE in the last 7068 hours. Last 3 LFTs No results for input(s): AST, ALT, ALKPHOS, BILITOT, BILIDIR in the last 7068 hours. Last 3 Coags No results for input(s): PT, INR, PTT in the last 168 hours. Last 3 HgbA1C No results for input(s): HA1C in the last 7068 hours. ASSESSMENT: Assessment 1. Pain in left hip 2. Groin pain, left 3. Lower extremity pain, left Guzman Jean is a 45 y.o. female with history of DMII with insulin pump, tobacco use disorder, B12 deficiency, HTN, high BMI, .fatty liver, Depression, BPD, anxiety,Insulin overdose with S/I in 2013, who presents today for Question of LESI vs bursa. The patient has no signs of radicular symptoms, no radiculopathy on exam. Although she has a left foraminal protrusion at L4-5, her symptoms arenot congruent with this. She primarily has left groin pain, with some left posterior thigh radiation to the knee. She has a h/o left labral tear with surgery that helped her symptoms. Given findings on exam of decreased left hip ROM and groin pain with ROM of the hip, I feel she would benefit from O rthopedic reevaluation.. Her sytmpos began after a fall and I question if she re-injured the labrum. she may need MRI imaging of the left hip.I will leave Orthopedic referral and imaging considerations to the discretion of the patient's PCP. PLAN: 1. Recommend Orthopedic evaluation, possible left hip MRI (per the discretion of the patient's PCP). 2. If there are no concerns regarding the left hip joint and pain is ongoing, patient can return [facility] for reevaluation. Mame Fuentes MD Clinical Trial Leader of Anesthesiology [facility] [address] [address] / [facility] Dr. Fuentes spent 30 minutes of this visit in chart review,coordination of care, counseling and discussion with the patient regarding discussion of imaging, hip pain, exam findings,as detailed above. documented in this encounter Plan of Treatment Upcoming Encounters Date Type Department Care Team (Late st Contact Info) Description 02/21/2024 1:40 PM EDT Office [place] [address] Kristi Caicedo APRN [facility] [place] [address] Scheduled Referrals Name Type Priority Associated Diagnoses Orde r Schedule Referral to Pain and Spine Center (Internal only) Outpatient Referral Routine Intervertebral disc disorder with radiculopathy of lumbar region Ordered: 04/10/2021 documented as of this encounter Visit Diagnoses Diagnosis Pain in left hip Pain in joint, pelvic region and thigh Groin pain, left Lower extremity pain, left Pain in limb documented in this encounter Care Teams Life Enrichment Specialist Relationship Specialty Start Date End Date Jossie Patton APRN [address] [place] [id number] PCP - General Family Medicine 04/19/20 documented as of this encounter
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
--- OUTSIDE RECORDS SUMMARY | 2024-02-14 15:18 | XMS_ITS | Encounter Summary ---
Author Organization [facility] [place] [address] Care Team Providers Care Wing Commander Name Role Phone Jossie Patton RADHA Primary Care Provider [phone] Encounter Details Date Type Department Care Team (Late st Contact Info) Description 08/19/2020 Telephone Endocrinology at [facility] [place] [id number] [facility] [address] Social History Tobacco Use Types Packs/Day Years Used Date Smoking Tobacco: Every Day Cigarettes Smokeless Tobacco: Never Comments:marijuana occasiona lly Sex and Gender Information Value Date Recorded Sex Assigned at Not on file Gender Identity Not on file Sexual Orientation Not on file documented as of this encounter Miscellaneous Notes * Telephone Encounter - Isis Chapa RD - 08/19/2020 4:50 PM EDT Call placed to Guzman regarding appointment scheduled for next Saturday. It said help with pump, so Iwas checking to see if she had already started on pump or not. The pump shipped to her home, but she has not started yet. I let her know that I would not be the one training and starting her on it, but that the [employer] Start Right Team and Marisol Gibson would be contacting her to schedule the training; they will be the ones to get her started. She understands. She still has some questions, so shewould like to keep appointment next Saturday and we will have a pre-pump visit where she can ask questions and get a hands on feel. Isis Chapa RD documented in this encounter Plan of Treatment Upcoming Encounters Date Type Department Care Team (Late st Contact Info) Description 02/21/2024 1:40 PM EDT Office [place] [address] Kristi Caicedo APRN [facility] [place] [address] documented as of this encounter Visit Diagnoses Not on filedocumented in this encounter Care Teams Wing Commander Relationship Specialty Start Date End Date Jossie Patton APRN [address] [place] [address] PCP - General Family Medicine 04/19/20 documented as of this encounter
--- OUTSIDE RECORDS SUMMARY | 2024-02-14 15:18 | XMS_ITS | Encounter Summary ---
Author Organization [facility] [place] [address] Care Team Providers Care Bottom Polisher Name Role Phone Jossie Patton RADHA Primary Care Provider [phone] Encounter Details Date Type Department Care Team (Latest Contact Info) Description 11/03/2020 9:30 AM EDT TH Visit (TeleHealth) [place] [address] Elijah Oneal MD [facility] [place] [place] [address] Uncontrolled type 2 diabetes mellitus with hyperglycemia; Dyslipidemia Social History Tobacco Use Types Packs/Day Years [...] - - Temperature - - Respiratory Rate 12 11/03/2020 9:43 AM EDT Oxygen Saturation - - Inhaled Oxygen Concentration - - Weight 97.5 kg (215 lb) 11/03/2020 9:43 AM EDT Height 152.4 cm (5') 11/03/2020 9:43 AM EDT Body Mass Index 41.99 11/03/2020 9:43 AM EDT documented in this encounter Patient Instructions * Patient Instructions* Elijah Oneal MD - 11/03/2020 9:30 AM EDT Recommendation: 1. Medication: Patient will add addition basal [...] this goal. 5. Lab: to recheck lab soon for A1c and Lipids locally at [facility] lab We will let patient know test lab test results and adjust medication if needed during this interim. 6. RTC: Next visit with ROSI Mcdowell DNP for pump follow-up (just started on new pump a few weeks ago Medtronic 670G & Dexcom G6 CGM via Telehaelth or in person so we can help adjust pump regimen further. I can see her annually for endocrine issue. ELIJAH ONEAL MD ' documented in this encounter Progress Notes * Elijah Oneal MD - 11/03/2020 9:30 AM EDT Diabetes Follow-up Note Date : 11/03/2020 Patient: Name: Hilda Crowley : 1975 PCP: Jossie Patton APRN Reason for follow-up: T2DM just switched from multiple daily injections to insulin pump (Medtronic 670G) & Dexcom G6 CGM. Also, PCOS and vitamin D deficiency. Patient verbally consents to this telehealth visit and understands that this visit may be billed, similar to a clinic office visit. I provided care to the patient today via phone call. The total time associated with this visit was 48 minutes. Brief History of Present Illness: Hilda [...] on 05/16/13-> 29 on 07/07/19) E55.9 ??? 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 Her 3 daughters are now 6, 12 and 21 yrs old and she has supportive family and her step-mother is also having he r medical care here. She used to see Rerecording Mixer at [facility] (Tio Ray MD) before and switched her care to [facility] since Apr 2020. She just started on Medtronic pump 2 weeks ago in late September 2020 and told me that she is doing wellon the pump but noted high BG up in 200s often requiring frequent corrections so she will need morebasal insulin today. She used to titrate lantus up to 100 units before switching to pump so basal insulin 50 units from the pump is not enough. We will add tresiba U200 for more basal insulin support(covered better than lantus), so she won't run out of insulin resevior too quickly (she filled insulin resevior 300u which lasts only for 2.5 days currently). She supposed to schedule appointment with Kristi taylor after she got insulin pump for further training and will call our escrow secretary soon. Current outpatient diabetes regimen: Medications: insulin pump settings- Basal rate 2.0 u/h (midnight), 2.1 u/h (7a- MN). Total basal insulin 49.7units/day) => will add Tresiba U200 30-50units qhs for extra basal support. Bolus 1:5g, ISF 20, 3h, Target 100-120 daytime and 100-140 at night. BGFS Monitoring is done 4-10 times a day, using Dexcom G6 CGM, ranging between 100s-300s mg/dl overthe past 2 weeks. Most recent HbA1c 9.1% [...] and an aspirin. 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 humaLOG Solution Inject 120-150 Units subcutaneously [...] mouth Daily. ??? blood sugar diagnostic strips ([employer] Verio test strips) Strip USE TO CHECK BLOOD GLUCOSE TWICE DAILY DX E11.9 ??? Blood-Glucose Meter (OneTouch Verio Flex meter) [facility] USE TO CHECK BLOOD GLUCOSE TWICE DAILY [...] 2 times daily. 60 tablet 11 ??? [DISCONTINUED] ARIPiprazole (Abilify) 10 mg Tablet Take 25 mg by mouth daily. ??? [DISCONTINUED] insulin glargine (Lantus Solostar U-100 Insulin) 100 unit/mL (3 mL) pen INJECT 40 UNITS SUBCUTANEOUSLY DAILY. ??? [DISCONTINUED] insulin lispro (humaLOG KwikPen) Insulin Pen 4 Units. Sliding scale ??? [DISCONTINUED] liraglutide (Victoza 3-[place]) 0.6 mg/0.1 mL (18 mg/3 mL) Pen Injector 0.8 mg daily. No current facility-administered medications on file [...] Week: ??? Minutes of Exercise per Session: FAMILY HISTORY +T1DM on half brother (age 30) +Diabetes in cousins +HTN in both parents No thyroid or cancer in the family Physical Exam Resp 12 Ht 152.4 cm (5') Wt 97.5 kg (215 lb) BMI 41.99 kg/m?? Deferred. Previous exam from last in-person visit: BW 220 lb, 5', BP 140/51, IL 77, RR 12, BMI 43 Appearance: Patient [...] help reduce insulin need. She started on Dex556 Fitness G6 CGM in Apr 2020 and seen by Isis Chapa RD as well. She is interested in insulin pump as she has been on multiple daily insulin injection 4x/day. She used to have insulin overdose 7 yrs ago and now her BPD is much better and is able to stop Rosa Sanchez in summer 2019 with stable mood. She has supportive family and used to see Rerecording Mixer at [facility] (Tio Ray MD) before switching care to [facility] like her step-mother. She just started on Medtronic pump 2 [...] with Kristi instead and will call our escrow secretary soon. Review of her previous record and lab [...] as well. Recommendation: 1. Medication: Patient will add addition basal [...] this goal. 5. Lab: to recheck lab soon for A1c and Lipids locally at [facility] lab We will let patient know test lab test results and adjust medication if needed during this interim. 6. RTC: Next visit with ROSI Mcdowell DNP for pump follow-up (just started on new pump a few weeks ago Medtronic 670G & Dexcom G6 CGM via Telehaelth or in person so we can help adjust pump regimen further. I can see her annually for endocrine issue. We have reviewed our plan outlined above [...] PhD, FACE, FACP CC: Jossie Patton APRN documented in this encounter Plan of Treatment Upcoming Encounters Date Type Department Care Team (Late st Contact Info) Description 02/21/2024 1:40 PM EDT Office [place] [address] Kristi Caicedo APRN [facility] [place] [address] documented as of this encounter Visit Diagnoses Diagnosis Uncontrolled type 2 diabetes mellitus with hyperglycemia Dyslipidemia Other and unspecified hyperlipidemia documented in this encounter Care Teams Bottom Polisher Relationship Specialty Start Date End Date Jossie Patton APRN [address] [place] [address] PCP - General Family Medicine 12/22/20 documented as of this encounter
--- OUTSIDE RECORDS SUMMARY | 2024-02-14 15:19 | XMS_ITS | Encounter Summary ---
Author Organization [facility] Address [address] [place] [address] Care Team Providers Care Machine Shop Repair Technician Name Role Phone Annette Sidhu APRN Primary Care Provider [phone] Reason for Visit * Reason Onset Date Comments Appointment Related 07/02/2019 fcp Encounter Details Date Type Department Care Team (Late st Contact Info) Description 07/02/2019 Telephone [facility] Hematology & Oncology - [address] [address] Fcp, Provider, Appointment Related (fcp) Social History Tobacco Use Types Packs/Day Years [...] No 11/23/2015 documented as of this encounter Miscellaneous Notes * Telephone Encounter - Bessie Rojas - 07/02/2019 1340 EST Called and spoke to pt to schedule FCP appt on 11.03.19 at 12:00 pm w/ [place]. Pt confirmed FH of genetic screening: She thinks one family member tested positive for BRCA1 or BRCA2, unsure. Pt confirmed primary insurance is Medicaid. Mailing WP today documented in this encounter Plan of Treatment Not on file documented as of this encounter Goals Goal Patient Goal Type Associated Problems Recent Progress Patient-Stated? Author HEMOGLOBIN A1C < 7.0 Result Component Type 2 diabetes mellitus ([facility]) 8.7(07/07/2015 5:05 EST) No Annmarie Vigil documented as of this encounter Visit Diagnoses Not on filedocumented in this encounter Additional Health Concerns Infection Onset Date Last Indicated Resolved Time MRSA Comment:IP note: risk factors - DM, obesity Pos sinus 06/30/17 M Chito 07/01/17 07/01/2017 07/01/2017 documented as of this encounter Care Teams Machine Shop Repair Technician Relationship Specialty Start Date End Date Annette Sidhu, QUALITY ASSURANCE TEST PROGRAM MANAGER [address] [place] [phone] PCP - General 03/19/13 07/06/19 documented as of this encounter
--- OUTSIDE RECORDS SUMMARY | 2024-02-14 15:19 | XMS_ITS | Encounter Summary ---
Author Organization [facility] Address [address] [place] [address] Care Team Providers Care Pre Kindergarten Teacher Name Role Phone Jossie Patton RADHA Primary Care Provider [phone] Reason for Visit * Reason Onset Date Comments Returning Call 08/27/2019 Encounter Details Date Type Department Care Team (Late st Contact Info) Description 08/27/[address] [address] Tio Cassidy MD [address] [place] [address] Returning Call Social History Tobacco Use Types Packs/Day Years [...] encounter Miscellaneous Notes * Telephone Encounter - Jesus Olvera RN - 08/27/2019 1429 EDT Called and spoke with PRISCILA Naik and relayed Dr. Vance's message below: I would tell them I do not see why they cannot prescribe a sensor. I recommend DEXCOM. If they do not know how to prescribe it I will but only after I see her again. We can do so via telemedicine (VIDEO) or in person. Telephone only not appropriate. However, she must check sugars at lest 4 x day for at least 2 weeks before the appointment. I do want to point out that I will not prescribe insulin. I will only be guiding the dosing of insulin. ANDREY Naik RN verbalized understanding. No barriers to learning noted and will discuss with PCP and patient. * Telephone Encounter - Jesus Olvera RN - 08/27/2019 1411 EDT Spoke with PRISCILA Naik who states that pt is now injecting insulin 4 times daily and that it is beingadministered by the pt significant other. Insulin is kept in a lock box that only has access to. Rnstates that pt blood sugars are out of control and could benefit from use of CGM to try and improve. Routing message to provider to update. * Telephone Encounter - Melanie Guerra - 08/27/2019 1401 EDT Heena returning call to Jesus; please call as soon as possible documented in this encounter Plan of Treatment Not on file documented as of this encounter Goals Goal Patient Goal Type Associated Problems Recent Progress Patient-Stated? Author HEMOGLOBIN A1C < 7.0 Result Component Type 2 diabetes mellitus ([facility]) 8.7(07/07/2015 5:05 EST) No Annmarie Vigil documented as of this encounter Visit Diagnoses Not on filedocumented in this encounter Additional Health Concerns Infection Onset Date Last Indicated Resolved Time MRSA Comment:IP note: risk factors - DM, obesity Pos sinus 06/30/17 M Chito 07/01/17 07/01/2017 07/01/2017 documented as of this encounter Care Teams Pre Kindergarten Teacher Relationship Specialty Start Date End Date Jossie Patton APRN [address] [place] [address] PCP - General 07/07/19 11/10/23 documented as of this encounter
--- OUTSIDE RECORDS SUMMARY | 2024-02-14 15:19 | XMS_ITS | Encounter Summary ---
Author Organization [facility] Address [address] [place] [address] Care Team Providers Care Customer Service And Sales Consultant Name Role Phone Annette Sidhu APRN Primary Care Provider Encounter Details Date Type Department Care Team (Latest Contact Info) Description 02/09/2019 9:33 EDT - 02/09/2019 9:38 EDT Hospital Encounter [facility] [address] [place] [address] Annette Sidhu APRN [address] [facility] [address] [place] [address] Discharge Disposition: Home or Self Care Social [...] 11/23/2015 documented as of this encounter Discharge Diagnoses Diagnosis Z51.81 Encounter for therapeutic drug level monitoring-Z51.81[ICD-10-CM] documented in this encounter Medications at Time of Discharge Medication Sig Dispensed Refills Start Date End Date GABAPENTIN (NEURONTIN ORAL) Take 1,200 mg by mouth daily. ibuprofen (MOTRIN) 400 mg tablet Take 1 Tab by mouth every 4 hours as needed for Pain. 05/16/2014 labetalol (NORMODYNE) 200 mg tablet Take 1 Tab by mouth every 12 hours. 60 Tab 1 05/16/2014 metFORMIN (GLUCOPHAGE) 1,000 mg tablet Take 1 Tab by mouth 2 times daily with breakfast and dinner. 60 Tab 2 05/16/2014 pioglitazone (ACTOS) 30 mg tablet Take 30 mg by mouth daily. ranitidine (ZANTAC) 150 mg tablet Take 300 mg by mouth 2 times daily. sitaGLIPtin (JANUVIA) 100 mg tablet Take 100 mg by mouth daily. traMADol (ULTRAM) 50 mg tablet Take 50 mg by mouth every 6 hours acetaminophen (TYLENOL) 325 mg tablet Take 1-2 Tabs by mouth every 4 hours as needed for Pain. 05/16/2014 10/21/2020 ARIPIPRAZOLE (ABILIFY ORAL) Take by mouth. 07/07/2019 dexmethylphenidate (FOCALIN) 10 mg tablet Take 10 mg by mouth 3 times daily. 10/21/2020 glucagon (GLUCAGON EMERGENCY KIT, HUMAN,) 1 mg emergency injection kit Inject 1 mg into the muscle once as needed for up to 1 dose for Low Blood Sugar. 1 Kit 2 05/08/2014 10/21/2020 mupirocin (BACTROBAN) 2 % ointmentIndications:Nasa l vestibulitis Topically as directed BID, two 22 gm tubes for 30 days 2 Tube 1 06/28/2017 10/21/2020 documented as of this encounter Discharge Disposition Disposition Code Departure Means Destination Home or Self Care documented in this encounter Plan of Treatment Not on file documented as of this encounter Goals Goal Patient Goal Type Associated Problems Recent Progress Patient-Stated? Author HEMOGLOBIN A1C < 7.0 Result Component Type 2 diabetes mellitus ([facility]) 8.7(07/07/2015 5:05 EST) No Annmarie Vigil documented as of this encounter Visit Diagnoses Not on filedocumented in this encounter Additional Health Concerns Infection Onset Date Last Indicated Resolved Time MRSA Comment:IP note: risk factors - DM, obesity Pos sinus 06/30/17 M Chito 07/01/17 07/01/2017 07/01/2017 documented as of this encounter Care Teams Customer Service And Sales Consultant Relationship Specialty Start Date End Date Annette Sidhu, DOCUMENT DESIGN SPECIALIST [address] [place] [phone] PCP - General 03/19/13 07/06/19 documented as of this encounter
--- OUTSIDE RECORDS SUMMARY | 2024-02-14 15:19 | XMS_ITS | Encounter Summary ---
Author Organization [facility] Address [address] [place] [address] Care Team Providers Care Sand Temperer Name Role Phone Jossie Patton APRN Primary Care Provider [phone] Stephanie Santos MD Primary Care Provider [phone] Encounter Details Date Type Department Care Team (Late st Contact Info) Description 05/28/2020 Lab [facility] Pathology & Laboratory Medicine - [address] [address] Outr Resulting Lab, Provider Social History Tobacco [...] 7.0 Result Component Type 2 diabetes mellitus ([facility]) 8.7(07/07/2015 5:05 EST) No Annmarie Vigil documented as of this encounter Procedures Procedure Name Priority Date/Time Associated Diagnosis Comments VITAMIN B12 Routine 05/28/2020 9:40 EST documented in this encounter Results * VITAMIN B12 (05/28/2020 9:40 EST) Vitamin B12 493 211 - 911 pg/mL 05/30/2020 9:39 EST [facility] Blood VENOUS BLOOD / Unknown 05/28/2020 9:40 EST 05/28/2020 21:45 EST Provider Outr Resulting Lab CHEMISTRY & BLOOD GAS ORDERABLES [facility] [address] [place] [address] documented in this encounter Visit Diagnoses Not on filedocumented in this encounter Additional Health Concerns Infection Onset Date Last Indicated Resolved Time MRSA Comment:IP note: risk factors - DM, obesity Pos sinus 06/30/17 M Chito 07/01/17 07/01/2017 07/01/2017 documented as of this encounter Care Teams Sand Temperer Relationship Specialty Start Date End Date Jossie Patton APRN [address] [place] [phone] PCP - General 07/07/19 11/10/23 Stephanie Santos MD [address] [place], [place] [id number] PCP - General Family Medicine - Primary Care 11/11/23 documented as of this encounter
--- OUTSIDE RECORDS SUMMARY | 2024-02-14 15:19 | XMS_ITS | Encounter Summary ---
Author Organization [facility] Address [address] [place] [address] Care Team Providers Care Law Enforcement Instructor Name Role Phone Jossie Patton RADHA Primary Care Provider [phone] Reason for Visit * Reason Onset Date Comments Follow-up 07/09/2019 Encounter Details Date Type Department Care Team (Late st Contact Info) Description 07/09/2019 Telephone [facility] - [address] [address] Tio Cassidy MD [address] [place] [address] Follow-up Social History Tobacco Use Types Packs/Day Years Used Date Smoking Tobacco: Every Day Cigarettes 0.5 2 Smokeless Tobacco: Never Alcohol Use Standard Drinks/Week Comments No 0 (1 standard drink = 0.6 oz pur e alcohol) Interpersonal Safety Answer Date Record ed Physically [...] encounter Miscellaneous Notes * Telephone Encounter - Wanda Winters - 07/09/2019 0826 EDT Jossie calling to see is she should wait for home health until after the Psychiatry evaluation per office note from [facility] on 07/07/19? Please call. documented in this encounter Plan of Treatment Not on file documented as of this encounter Goals Goal Patient Goal Type Associated Problems Recent Progress Patient-Stated? Author HEMOGLOBIN A1C < 7.0 Result Component Type 2 diabetes mellitus ([facility]) 8.7(07/07/2015 5:05 EST) No Annmarie Vigil documented as of this encounter Visit Diagnoses Not on filedocumented in this encounter Additional Health Concerns Infection Onset Date Last Indicated Resolved Time MRSA Comment:IP note: risk factors - DM, obesity Pos sinus 06/30/17 M Chito 07/01/17 07/01/2017 07/01/2017 documented as of this encounter Care Teams Law Enforcement Instructor Relationship Specialty Start Date End Date Jossie Patton APRN [address] [place] [phone] PCP - General 07/07/19 11/10/23 documented as of this encounter
--- OUTSIDE RECORDS SUMMARY | 2024-02-14 15:19 | XMS_ITS | Encounter Summary ---
Author Organization [facility] Address [address] [place] [address] Care Team Providers Care Stem Assembler Name Role Phone Jossie Patton RADHA Primary Care Provider [phone] Encounter Details Date Type Department Care Team (Latest Contact Info) Description 07/07/2019 11:00 EDT Phlebotomy [facility] Endocrinology - [address] [address] Phlebotomy, [facility] Uncontrolled type 2 diabetes mellitus with hyperglycemia (HCC-CMS); Hypercalcemia Social History Tobacco Use Types Packs/Day Years [...] No 11/23/2015 documented as of this encounter Progress Notes * Mandy Jovel MA - 07/07/2019 1100 EDT A venous blood collection was preformed today via venipuncture on this patient. Additional Non-blood specimens collected (Urines not charged for at time of collection at [facility]): Albumin urine I was supervised by Gabrielle Pineda who was present and immediately available in the office suite. MANDY JOVEL MA 07/07/2019 11:26 documented in this encounter Plan of Treatment Not on file documented as of this encounter Goals Goal Patient Goal Type Associated Problems Recent Progress Patient-Stated? Author HEMOGLOBIN A1C < 7.0 Result Component Type 2 diabetes mellitus ([facility]) 8.7(07/07/2015 5:05 EST) No Annmarie Vigil documented as of this encounter Procedures Procedure Name Priority Date/Time Associated Diagnosis Comments URINE RYUYLFO-QS-AYUXWOCKCU RATIO (ACR) Routine 07/07/2019 11:39 EDT Uncontrolled type 2 diabetes mellitus with hyperglycemia ([facility]) LDL, DIRECT Today 07/07/2019 11:37 EDT Uncontrolled type 2 diabetes mellitus with hyperglycemia ([facility]) VITAMIN D (25,[place]) Routine 07/07/2019 11: 37 EDT Hypercalcemia PTH INTACT Routine 07/07/2019 11:37 EDT Hypercalcemia FRUCTOSAMINE Routine 07/07/2019 11:37 EDT Uncontrolled type 2 diabetes mellitus with hyperglycemia ([facility]) PHOSPHORUS Routine 07/07/2019 11:37 EDT Hypercalcemia LIPID PROFILE (INCLUDES CHOLESTEROL, TRIGLYCERIDES, HDL, LDL) Routine 07/07/2019 11:37 EDT Uncontrolled type 2 diabetes mellitus with hyperglycemia ([facility]) COMPREHENSIVE METABOLIC PANEL (CMP) Routine 07/07/2019 11:37 EDT Uncontrolled type 2 diabetes mellitus with hyperglycemia ([facility]) documented in this encounter Results * ALBUMIN, URINE (07/07/2019 11:39 EDT) Albumin, Urine <0.6 See Note mg/dL 2019 15:[address] [facility] Comment: NOTE: Reference range not established Creatinine, Urine 30.4 See Note mg/dL 07/07/2019 15:[address] [facility] Comment: NOTE: Reference range not established Lab Urine Albumin to Creatinine Ratio <20 <30 ug/mg Creatinine 07/07/2019 15:[address] [facility] Comment: Urine Albumin/Creatinine Ratio: Normal: <30 ug/mg Creatinine Moderately increased albuminuria: 30-30 ug/mg Creatinine Severley increased albuminuria: >300 ug/mg Creatinine Urine URINE SPECIMEN OBTAINED BY CLEAN CATCH PROCEDURE / Unknown Urine Collect / Unknown 07/07/2019 11:39 EDT 07/07/2019 11:40 EDT Tio Ray MD CHEMISTRY & BLOOD GAS ORDERABLES Performing Organization Address City/[facility] Co de Phone Number [facility] [address] [place] [address] * LDL, DIRECT ([facility]) (07/07/2019 11:37 EDT) LDL, Direct 168 See Note mg/dL 07/07/2019 16:[address] [facility] Comment: LDL, Direct Reference Ranges: Optimal: Less than 100 mg/dL Above Optimal: 100-129 mg/dL Borderline High: 130-159 mg/dL High: 160-189 mg/dL Very High: Greater than or equal to 190 mg/dL Blood VENOUS BLOOD / Unknown Venipuncture / Unknown 07/07/2019 11:37 EDT 07/07/2019 11:40 EDT Tio Ray MD CHEMISTRY & BLOOD GAS ORDERABLES Performing Organization Address City/[facility]/ZIP Co de Phone Number [facility] [address] [place] [address] * PHOSPHORUS (07/07/2019 11:37 EDT) Phosphorus 4.1 2.5 - 4.5 mg/dL 07/07/2019 14:[address] [facility] Blood VENOUS BLOOD / Unknown Venipuncture / Unknown 07/07/2019 11:37 EDT 07/07/2019 11:40 EDT Tio Ray MD CHEMISTRY & BLOOD GAS ORDERABLES Performing Organization Address City/[facility] Co de Phone Number [facility] [address] [place] [address] * (ABNORMAL) VITAMIN D (25,OH) (07/07/2019 11:37 EDT) 25OH Vitamin D Tot 29.0(L) 30.0 - 100.0 ng/mL 07/08/2019 10:[address] [facility] Comment: Vitamin D 25,OH Interpretive Ranges: Deficiency: ??<10.0 ng/mL Insufficiency: ??10.0 - 30.0 ng/mL Sufficiency: ??30.0 - 100.0 ng/mL Toxicity: ??>100.0 ng/mL Blood VENOUS BLOOD / Unknown Venipuncture / Unknown 07/07/2019 11:37 EDT 07/07/2019 11:40 EDT Tio Ray MD CHEMISTRY & BLOOD GAS ORDERABLES Performing Organization Address City/[facility]/ZIP Co de Phone Number [facility] [address] [place] [address] * PTH INTACT (07/07/2019 11:37 EDT) Intact PTH 27 19 - 88 pg/mL 07/08/2019 11:[address] [facility] Blood VENOUS BLOOD / Unknown Venipuncture / Unknown 07/07/2019 11:37 EDT 07/07/2019 11:40 EDT Tio Ray MD CHEMISTRY & BLOOD GAS ORDERABLES [facility] [address] [place] [address] * (ABNORMAL) FRUCTOSAMINE (07/07/2019 11:37 EDT) Fructosamine, S 425(H) 200 - 285 mcmol/L 07/08/2019 13:32 EDT [facility] Comment: Test Performed by: [facility] [address] [place] [address] Lead Printer: Lloyd Barker M.D. Ph.D.; CLIA# [id number] Blood VENOUS BLOOD / Unknown Venipuncture / Unknown 07/07/2019 11:37 EDT 07/07/2019 11:40 EDT Tio Ray MD CHEMISTRY & BLOOD GAS ORDERABLES [facility] [address] [place] [address] * (ABNORMAL) COMPREHENSIVE METABOLIC PANEL (CMP) (07/07/2019 11:37 EDT) Pathologist [facility] Sodium 135(L) 136 - 145 mEq/L 07/07/2019 14:[address] [facility] Potassium 4.2 3.5 - 5.0 mEq/L 07/07/2019 14:[address] [facility] Chloride 101 96 - 110 mEq/L 07/07/2019 14:[address] [facility] CO2 Total 19(L) 22 - 32 mEq/L 07/07/2019 14:[address] [facility] Glucose 281(H) 70 - 100 mg/dL 07/07/2019 14:[address] [facility] BUN 8(L) 10 - 26 mg/dL 07/07/2019 14:[address] [facility] Creatinine 0.69 0.52 - 1.04 mg/dL 07/07/2019 14:[address] [facility] eGFR 108 >60 mL/min/1.7 3m2 07/07/2019 14:[address] [facility] Comment:eGFR calculated usin g CKD-EPI equation for non- Americans. Multiply eGFR by 1.16 for patients. Total Protein 7.9 6.3 - 8.2 g/dL 07/07/2019 14:[address] [facility] Albumin 5.0(H) 3.4 - 4.9 g/dL 07/07/2019 14:[address] [facility] Alkaline Phosphatase 115 38 - 126 U/L 07/07/2019 14:[address] [facility] AST 89(H) 15 - 46 U/L 07/07/2019 14:59 [facility] ALT 68(H) <35 U/L 07/07/2019 14:59 [facility] Bilirubin, Total 0.9 <1.4 mg/dL 07/07/19 20 14:59 [facility] Calcium 10.4 8.5 - 10.5 mg/dL 07/07/2019 14:59 [facility] Calculated Calcium 9.6 8.5 - 10.5 mg/dL 07/07/2019 14:59 [facility] Blood VENOUS BLOOD / Unknown Venipuncture / Unknown 07/07/2019 11:37 EDT 07/07/2019 11:40 EDT Narr[address] [facility] - 07/07/2019 14:59 EDT 1 Tio Ray MD CHEMISTRY & BLOOD GAS ORDERABLES [facility] [address] [place] [address] * LIPID PROFILE (INCLUDES CHOLESTEROL, TRIGLYCERIDES, HDL, LDL) (07/07/2019 11:37 EDT) Cholesterol 301 See Note mg/dL 07/07/2019 16:[address] [facility] Comment: Acceptable: ?<200 mg/dL Borderline High: 200-239 mg/dL High: ?> or = 240 mg/dL HDL 56 See Note mg/dL 07/07/2019 16:22 [facility] Comment: Low: ? <40 mg/dL Normal: ??40-60 mg/dL High: ?>60 mg/dL LDL, Calculated 0 16:22 [facility] Comment: Optimal: ? <100 mg/dL Near Optimal: ?100-129 mg/dL Borderline High: 130-159 mg/dL High: ?160-189 mg/dL Very High: ? > or = 190 mg/dL Calculated LDL invalid, triglycerides >400 mg/dL Direct LDL measurement added by reflex. Triglyceride 742 See Note mg/dL 07/07/2019 16:22 [facility] Comment: Normal: ? <150 mg/dL Borderline High: ??150 - 199 mg/dL High: ? 200 - 499 mg/dL Very High: ?> or = 500 mg/dL Chol/HDL Ratio 5.4 See Note 07/07/2019 16:22 [facility] Comment: No reference range has been established for CHOL/HDL ratio. Non HDL Cholesterol 245 See Note mg/dL 07/07/2019 16:22 [facility] Comment: Desirable: ?<130 mg/dL Borderline High: ??130-159 mg/dL High: ? 160-189 mg/dL Very High: ?> or = 190 mg/dL Blood VENOUS BLOOD / Unknown Venipuncture / Unknown 07/07/2019 11:37 EDT 07/07/2019 11:40 EDT [address] [facility] - 07/07/2019 16:22 EDT 1 Tio Ray MD CHEMISTRY & BLOOD GAS ORDERABLES [facility] [address] [place] [address] documented in this encounter Visit Diagnoses Diagnosis Uncontrolled type 2 diabetes mellitus with hyperglycemia ([facility]) Hypercalcemia documented in this encounter Additional Health Concerns Infection Onset Date Last Indicated Resolved Time MRSA Comment:IP note: risk factors - DM, obesity Pos sinus 06/30/17 M Chito 07/01/17 07/01/2017 07/01/2017 documented as of this encounter Care Teams Stem Assembler Relationship Specialty Start Date End Date Jossie Patton, RADHA [address] [place] [phone] PCP - General 07/07/19 11/10/23 documented as of this encounter
--- OUTSIDE RECORDS SUMMARY | 2024-02-14 15:19 | XMS_ITS | Encounter Summary ---
Author Organization [facility] Address [address] [place] [address] Care Team Providers Care Guest Advisor Name Role Phone Jossie Patton APRN Primary Care Provider [phone] Reason for Visit * Reason Onset Date Comments Appointment Related 02/11/2020 Encounter Details Date Type Department Care Team (Late st Contact Info) Description 02/11/2020 Telephone [facility] Sleep Program - [address] [place], [place] [id number] Jossie Razo NP 1 [facility] [address] [place] [address] Appointment Related Social History Tobacco Use Types Packs/Day Years [...] on file Sexual Orientation Not on file COVID-19 Exposure Response Date Recorded In the last month, have you been in contact with someone who was confirmed or suspected to have Coronavirus / COVID-19? No / Unsure 10/21/2020 9:08 EDT documented as of this encounter Functional Status [...] encounter Miscellaneous Notes * Telephone Encounter - Carine Tucker - 02/11/2020 3832 EDT Contacted pt to schedule NPV/Consult w/ES. Mailbox is full and can not accept any messages at this time. documented in this encounter Plan of Treatment Not on file documented as of this encounter Goals Goal Patient Goal Type Associated Problems Recent Progress Patient-Stated? Author HEMOGLOBIN A1C < 7.0 Result Component Type 2 diabetes mellitus ([facility]) 8.7(07/07/2015 5:05 EST) No Annmarie Vigil documented as of this encounter Visit Diagnoses Not on filedocumented in this encounter Additional Health Concerns Infection Onset Date Last Indicated Resolved Time MRSA Comment:IP note: risk factors - DM, obesity Pos sinus 06/30/17 M Chito 07/01/17 07/01/2017 07/01/2017 documented as of this encounter Care Teams Guest Advisor Relationship Specialty Start Date End Date Jossie Patton APRN [address] [place] [phone] PCP - General 07/07/19 11/10/23 documented as of this encounter
--- OUTSIDE RECORDS SUMMARY | 2024-02-14 15:19 | XMS_ITS | Encounter Summary ---
Author Organization [facility] Address [address] [place] [address] Care Team Providers Care Decatizer Name Role Phone Annette Sidhu APRN Primary Care Provider Reason for Visit * Reason Onset Date Comments Other 10/21/2018 Encounter Details Date Type Department Care Team (Late st Contact Info) Description 10/21/2018 Telephone [facility] Bariatric Surgery [facility] [address] [place], [place] [address] Bryson Medley, GERMANC [address] [facility], [address] [place] [address] Other Social History Tobacco Use Types Packs/Day Years [...] encounter Miscellaneous Notes * Telephone Encounter - Melissa Solis - 10/21/2018 1516 EDT Called number out of service. Letter sent Referral closed documented in this encounter Plan of Treatment Not on file documented as of this encounter Goals Goal Patient Goal Type Associated Problems Recent Progress Patient-Stated? Author HEMOGLOBIN A1C < 7.0 Result Component Type 2 diabetes mellitus ([facility]) 8.7(07/07/2015 5:05 EST) No Annmarie Vigil documented as of this encounter Visit Diagnoses Not on filedocumented in this encounter Additional Health Concerns Infection Onset Date Last Indicated Resolved Time MRSA Comment:IP note: risk factors - DM, obesity Pos sinus 06/30/17 M Chito 07/01/17 07/01/2017 07/01/2017 documented as of this encounter Care Teams Decatizer Relationship Specialty Start Date End Date Annette Sidhu APRN [address] [place] [phone] PCP - General 03/19/13 07/06/19 documented as of this encounter
--- OUTSIDE RECORDS SUMMARY | 2024-02-14 15:19 | XMS_ITS | Encounter Summary ---
Author Organization [facility] Address [address] [place] [address] Care Team Providers Care C Architect Name Role Phone PoojaJossie karimi RADHA Primary Care Provider [phone] Reason for Visit * Reason Onset Date Comments Appointment Related 10/23/2019 fcp Encounter Details Date Type Department Care Team (Late st Contact Info) Description 10/23/2019 Telephone [facility] Hematology & Oncology - [address] [address] Fcp, Provider, Appointment Related (fcp) Social History Tobacco Use Types Packs/Day Years Used Date Smoking Tobacco: Every Day Cigarettes 0.5 2 Smokeless Tobacco: Never Alcohol Use Standard Drinks/Week Comments No 0 (1 standard drink = 0.6 oz pur e alcohol) rare wine cooler Sex and Gender Information Value Date Recorded [...] * Telephone Encounter - Bessie Rojas - 10/23/2019 0959 EDT Spoke with patient whom was very happy to accept the Zoom (saves her a [address]) Appointmentwith on 7.11.15 at 12:00 pm Sending Zoom invite today! documented in this encounter Plan of Treatment Not on file documented as of this encounter Goals Goal Patient Goal Type Associated Problems Recent Progress Patient-Stated? Author HEMOGLOBIN A1C < 7.0 Result Component Type 2 diabetes mellitus ([facility]) 8.7(07/07/2015 5:05 EST) No Annmarie Vigil documented as of this encounter Visit Diagnoses Not on filedocumented in this encounter Additional Health Concerns Infection Onset Date Last Indicated Resolved Time MRSA Comment:IP note: risk factors - DM, obesity Pos sinus 06/30/17 M Chito 07/01/17 07/01/2017 07/01/2017 documented as of this encounter Care Teams C Architect Relationship Specialty Start Date End Date Jossie Patton APRN [address] [place] [phone] PCP - General 07/07/19 11/10/23 documented as of this encounter
--- OUTSIDE RECORDS SUMMARY | 2024-02-14 15:19 | XMS_ITS | Encounter Summary ---
Author Organization [facility] Address [address] [place] [address] Care Team Providers Care Study Abroad Advisor Name Role Phone PoojaJossie karimi Gabrielle GARCIA Primary Care Provider Reason for Visit * Reason Onset Date Comments Appointment Related 06/27/2020 Encounter Details Date Type Department Care Team (Late st Contact Info) Description 06/27/2020 Telephone [facility] Sleep Program - [address] [place] [address] [place] [phone] Unknown, Provider, Appointment Related Social History Tobacco Use Types [...] Miscellaneous Notes * Telephone Encounter - Bessie Livingston - 06/27/2020 1527 EST Called pt x2 to schedule NPV/CONSULT ZOOM appt MAILBOX FULL - sent email documented in this encounter Plan of Treatment Not on file documented as of this encounter Goals Goal Patient Goal Type Associated Problems Recent Progress Patient-Stated? Author HEMOGLOBIN A1C < 7.0 Result Component Type 2 diabetes mellitus ([facility]) 8.7(07/07/2015 5:05 EST) No Annmarie Vigil documented as of this encounter Visit Diagnoses Not on filedocumented in this encounter Additional Health Concerns Infection Onset Date Last Indicated Resolved Time MRSA Comment:IP note: risk factors - DM, obesity Pos sinus 06/30/17 M Chito 07/01/17 07/01/2017 07/01/2017 documented as of this encounter Care Teams Study Abroad Advisor Relationship Specialty Start Date End Date Jossie Patton APRN [address] [place] [phone] PCP - General 07/07/19 11/10/23 documented as of this encounter
--- OUTSIDE RECORDS SUMMARY | 2024-02-14 15:19 | XMS_ITS | Encounter Summary ---
Author Organization [facility] Address [address] [place] [address] Care Team Providers Care Metal Sprayer Production Name Role Phone Jossie Patton APRN Primary Care Provider [phone] Stephanie Santos MD Primary Care Provider [phone] Encounter Details Date Type Department Care Team (Late st Contact Info) Description 08/24/2023 Lab Requisition [facility] Pathology & Laboratory Medicine - [address] [address] Outr Resulting Lab, Provider Social History Tobacco [...] Result Component Type 2 diabetes mellitus ([facility]) 8.7(07/07/2015 5:05 EST) No Annmarie Vigil documented as of this encounter Procedures Procedure Name Priority Date/Time Associated Diagnosis Comments HEPATITIS A ANTIBODY IGM Today 08/24/2023 7:46 EDT HEPATITIS A TOTAL ANTIBODY W REFLEX Routine 08/24/2023 7:46 EDT documented in this encounter Results * HEPATITIS A ANTIBODY IGM (08/24/2023 7:46 EDT) Hepatitis A Antibody, IgM Negative Negative 08/26/2023 11:32 EDT [facility] Blood VENOUS BLOOD / Unknown 08/24/2023 7:46 EDT 08/24/2023 21:24 EDT Narrative [facility] - 08/26/2023 11:32 EDT The results of this assay can be falsely lowered due to the consumption of Biotin. Provider Outr Resulting Lab CHEMISTRY & BLOOD GAS ORDERABLES [facility] [address] [place] [phone] * (ABNORMAL) HEPATITIS A TOTAL ANTIBODY W REFLEX (08/24/2023 7:46 EDT) Hepatitis A Antibody, Total Positive(A ) Negative 08/26/2023 10:32 EDT [facility] Blood VENOUS BLOOD / Unknown 08/24/2023 7:46 EDT 08/24/2023 21:24 EDT Narrative [facility] - 08/26/2023 10:32 EDT The result of this assay can be falsely elevated (Positive) due to the consumption of Biotin. Provider Outr Resulting Lab CHEMISTRY & BLOOD GAS ORDERABLES [facility] [address] [place] [address] documented in this encounter Visit Diagnoses Not on filedocumented in this encounter Additional Health Concerns Infection Onset Date Last Indicated Resolved Time MRSA Comment:IP note: risk factors - DM, obesity Pos sinus 06/30/17 M Chito 07/01/17 07/01/2017 07/01/2017 documented as of this encounter Care Teams Metal Sprayer Production Relationship Specialty Start Date End Date Jossie Patton APRN [address] [place] [address] PCP - General 07/07/19 11/10/23 Stephanie Santos MD [address] [place] [address] PCP - General Family Medicine - Primary Care 11/11/23 documented as of this encounter
--- OUTSIDE RECORDS SUMMARY | 2024-02-14 15:19 | XMS_ITS | Encounter Summary ---
Author Organization [facility] Address [address] [place] [address] Care Team Providers Care Scrapper Name Role Phone Annette Sidhu APRN Primary Care Provider [phone] Encounter Details Date Type Department Care Team (Late st Contact Info) Description 05/09/2018 Results Only [facility] [phone] Annette Sidhu APRN [address] [phone] Social History Tobacco Use Types Packs/Day Years [...] Component Type 2 diabetes mellitus ([facility]) 8.7(07/07/2015 5:05 EST) No Annmarie Vigil documented as of this encounter Procedures Procedure Name Priority Date/Time Associated Diagnosis Comments COMPLETE BLOOD COUNT AND DIFFERENTIAL Routine 05/09/2018 12:06 EST documented in this encounter Results * (ABNORMAL) COMPLETE BLOOD COUNT AND DIFFERENTIAL (05/09/2018 12:06 EST) WBC 11.96 4.0 - 12.4 K/cmm 05/09/2018 20:09 [facility] RBC 4.43 3.86 - 5.04 M/cmm 05/09/2018 20:09 [facility] Hemoglobin 13.5 11.6 - 15.2 gm/dl 05/09/2018 20:09 [facility] HCT 39.0 34.9 - 44.4 % 05/09/2018 20:09 [facility] MCV 88 81 - 98 fl 05/09/2018 20:09 [facility] MCH 30.5 26.7 - 33.3 pg 05/09/2018 20:09 [facility] MCHC 34.6 32.1 - 35.9 gm/dl 05/09/2018 20:09 [facility] RDW-CV 12.0 <14.7 % 05/09/2018 20:09 [facility] RDW-SD 38.8 <50.4 fl 05/09/2018 20:09 [facility] PLT 361 141 - 377 K/cmm 05/09/2018 20:09 [facility] MPV 9.6 9.5 - 12.7 fl 05/09/2018 20:09 [facility] % Neutrophils 61.5 % 05/09/2018 20:09 [facility] % Lymphocytes 30.4 % 05/09/2018 20:09 [facility] % Monocytes 6.6 % 05/09/2018 20:09 [facility] % Eosinophils 0.6 % 05/09/2018 20:09 [facility] % Basophils 0.5 % 05/09/2018 20:09 [facility] % Immature Grans 0.4 % 05/09/2018 20:09 [facility] ABS Neutrophils 7.35 2.20 - 8.85 K/cmm 05/09/2018 20:09 [facility] ABS Lymphs 3.64(H) 1.09 - 3.30 K/cmm 05/09/2018 20:09 [facility] ABS Monocytes 0.79 0.1 - 0.8 K/cmm 05/09/2018 20:09 [facility] ABS Eosinophils 0.07 0.03 - 0.61 K/cmm 05/09/2018 20:09 [facility] ABS Basophils 0.06 0.01 - 0.11 K/cmm 05/09/2018 20:09 [facility] ABS Immature Grans 0.05 0 - 0.06 K/cmm 05/09/2018 20:09 [facility] Type of Diff: Automated 05/09/2018 20:09 [facility] BLOOD SPECIMEN / Unknown 05/09/2018 12:06 EST 05/09/2018 19:50 EST Annette Sidhu APRN PACKAGES & DNA PROBE ORDERABLES [facility] [address] [place] [address] documented in this encounter Visit Diagnoses Not on filedocumented in this encounter Additional Health Concerns Infection Onset Date Last Indicated Resolved Time MRSA Comment:IP note: risk factors - DM, obesity Pos sinus 06/30/17 M Chito 07/01/17 07/01/2017 07/01/2017 documented as of this encounter Care Teams Scrapper Relationship Specialty Start Date End Date Annette Sidhu APRN [address] [place] [phone] PCP - General 03/19/13 07/06/19 documented as of this encounter
--- OUTSIDE RECORDS SUMMARY | 2024-02-14 15:19 | XMS_ITS | Encounter Summary ---
Author Organization [facility] Address [address] [place] [address] Care Team Providers Care Land Commissioner Name Role Phone PoojaJossie karimi RADHA Primary Care Provider [phone] Reason for Visit * Reason Comments Travel Consult Encounter Details Date Type Department Care Team (Late st Contact Info) Description 06/12/2022 14:00 EST Office Visit [facility] Infectious Disease - [address] [id number] [place], YUAN [address] [facility], [address] [place] [address] Travel advice encounter (Primary Dx); Need for prophylactic vaccination against yellow fever; Need for immunization against typhoid; Need for prophylactic vaccination against hepatitis A; Need for Tdap vaccination; Need for prophylactic vaccination against polio; Need for prophylactic vaccination and inoculation against meningococcus Social History Tobacco Use Types Packs/Day Years [...] Pressure - - Pulse - - Temperature 35.6 ??C (96.1 ??F) 06/12/2022 1402 EST Respiratory Rate - - Oxygen Saturation - - Inhaled Oxygen Concentration - - Weight - - Height - - Body Mass Index - - documented in this encounter Functional Status Functional [...] Dispensed Refills Start Date End Da te meningococcal conjugate MCV40 (MENVEO) IM kitIndications:Travel advice encounter,Need for prophylactic vaccination and inoculation against meningococcus Inject 0.5 mL into the muscle Once for 1 dose. 0.5 mL 06/12/2022 poliovirus vaccine, IPV, (IPOL) injectionIndications:Travel advice encounter,Need for prophylactic vaccination against polio Inject 0.5 mL into the muscle Once for 1 dose. 0.5 mL 06/12/2022 tetanus, diptheria, acellular pertussis vaccine, PF, (ADACEL) IM syringeIndications:Travel advice encounter,Need for Tdap vaccination Inject 0.5 mL into the muscle Once for 1 dose. 0.5 mL 06/12/2022 hepatitis A vaccine, PF,, adult, (HAVRIX) 1,440 ASA unit/mL syringeIndications:Travel advice encounter,Need for prophylactic vaccination against hepatitis A Inject 1 mL into the muscle Once for 1 dose. 1 mL 06/12/2022 atovaquone-proguaniL (MALARONE) 250-100 mg per tabletIndications:Travel advice encounter Take 1 Tablet by mouth daily. Start two days before. Every day while travel. 7 days post travel. 23 Tablet 06/12/2022 typhoid polysaccharide vaccine (TYPHIM ) 25 mcg/0.5 mL IM syringeIndications:Travel advice encounter,Need for immunization against typhoid Inject 0.5 mL into the muscle Once for 1 dose. 0.5 mL 06/12/2022 yellow fever vaccine, PF,, 9 mos+, (YF-VAX) SC injection-vialIndications:T imer advice encounter,Need for prophylactic vaccination against yellow fever Inject 0.5 mL into the skin Once for 1 dose. 1 Each 06/12/2022 documented in this encounter Progress Notes * [place], REDRAWER - 06/12/2022 1400 EST Travel Health Service Department of Medicine Progress Notes Travel: Where: [place] How Lon/27-07/04/22 Purpose: Meeting Boyfriend Allergies Allergen Reactions ??? Lisinopril Current Outpatient Medications Medication ??? amLODIPine (NORVASC) 10 mg tablet ??? ARIPiprazole (ABILIFY) 10 mg tablet ??? ARIPiprazole (ABILIFY) 2 mg tablet ??? Cholecalciferol, Vitamin D3, 50 mcg (2,000 unit) capsule ??? cyclobenzaprine (FLEXERIL) 10 mg tablet ??? GABAPENTIN (NEURONTIN ORAL) ??? HUMALOG KWIKPEN INSULIN 100 unit/mL injectable pen ??? hydrOXYzine (VISTARIL) 50 mg capsule ??? ibuprofen (MOTRIN) 400 mg tablet ??? irbesartan (AVAPRO) 150 mg tablet ??? JARDIANCE 25 mg tablet ??? labetaloL (NORMODYNE) 100 mg tablet ??? labetalol (NORMODYNE) 200 mg tablet ??? lamoTRIgine (LAMICTAL) 150 mg tablet ??? lamoTRIgine (LAMICTAL) 200 mg tablet ??? lamoTRIgine (LAMICTAL) 25 mg tablet ??? LANTUS SOLOSTAR U-100 INSULIN 100 unit/mL (3 mL) injection pen ??? lithium (LITHOBID) 300 mg CR tablet ??? metFORMIN (GLUCOPHAGE) 1,000 mg tablet ??? nicotine (NICODERM CQ) 21 mg/24 hr patch ??? ONETOUCH VERIO FLEX ??? ONETOUCH VERIO test strips ??? pioglitazone (ACTOS) 30 mg tablet ??? PROAIR HFA 90 mcg/actuation inhaler ??? QUEtiapine (SEROQUEL) 400 mg tablet ??? ranitidine (ZANTAC) 150 mg tablet ??? simvastatin (ZOCOR) 40 mg tablet ??? sitaGLIPtin (JANUVIA) 100 mg tablet ??? traMADol (ULTRAM) 50 mg tablet ??? VICTOZA 3-STEPHANIE 0.6 mg/0.1 mL (18 mg/3 mL) injectable pen No current facility-administered medications for this visit. Past Medical History: Diagnosis Date ??? Anxiety ??? Arm numbness ??? Asthma ??? Back pain ??? Depression ??? Fatigue ??? TIDWELL (headache) ??? High cholesterol ??? Hip pain ??? Hyperlipidemia 09/04/2011 ??? Hypertension ??? Joint pain ??? LBP (low back pain) 11/14/2010 ??? Polycystic ovaries 01/21/2008 ??? Routine general medical examination at health care facility 02/15/2005 ??? Type 2 diabetes mellitus without (mention of) complications 02/15/2005 ??? Wears glasses No LMP recorded. Immunization History Administered Date(s) Administered ? ? Influenza Vaccine =>3yo Split IM 02/06/2011 ? ? Influenza Vaccine =>3yo Split Preservative Free IM 03/16/2010, 03/04/2012 ??? Influenza Vaccine Quad (AFLURIA) PF 0.5 ml IM (3 yrs+) 02/22/2014 ??? Rho(D) Immune Globulin IM 02/22/2014, 05/13/2014 ? ? Tdap (BOOSTRIX) Vaccine =>7YO IM 09/20/2011, 04/09/2014 Risk/Benefit Review: Malaria maps reviewed with patient. She will be traveling in a malaria area. Malarone given. Food borne illnesses in particular Hep A and Typhoid discussed with patient. She will receive Hep A and will receive Typhoid today. She will seek post exposure to rabies if necessary. She is aware not to swim in any freshwater lakes or streams. She will use DEET for the prevention of mosquito borne illnesses. She will be traveling in a yellow fever zone and will get yellow fever vaccine today. She will get an updated Tdap, Polio, Menectra as a preventative measure. We had extensive discussion regarding the safety of [place] and how travel to [place] for pleasure is not recommended due to the risks of crime, she is aware. Patient Education Topic: environmental concerns, freshwater swimming, future shots, malaria, rabies, safe food/water, what to do if ill while there and Yellow Fever Method: Handout and Verbal Taught to: Patient Barriers: None Outcomes: independent Patient Education: specific geographic and immunization information given to patient. Patient Vitals for the past 24 hrs: Temp Temp [facility] 06/12/22 1402 35.6 ??C (96.1 ??F) Temporal Immunizations ordered: Hepatitis A vaccine, Malarone, Menactra, Polio (IPV), Tdap and Yellow Fever Total visit time: 20 minutes. Time spent on counseling by provider: 20 minutes. [place] APRN * Ben Nix RN - 06/12/2022 1400 EST Travel vaccinations administered as ordered without incident. BEN NIX RN documented in this encounter Plan of Treatment Not on file documented as of this encounter Goals Goal Patient Goal Type Associated Problems Recent Progress Patient-Stated? Author HEMOGLOBIN A1C < 7.0 Result Component Type 2 diabetes mellitus ([facility]) 8.7(07/07/2015 5:05 EST) No Annmarie Vigil documented as of this encounter Visit Diagnoses Diagnosis Travel advice encounter- Primary Other specified counseling Need for prophylactic vaccination against yellow fever Need for prophylactic vaccination and inoculation against yellow fever Need for immunization against typhoid Need for other specified prophylactic vaccination against single bacterial disease Need for prophylactic vaccination against hepatitis A Need for prophylactic vaccination and inoculation against viral hepatitis Need for Tdap vaccination Need for prophylactic vaccination with combined fnpsiqjxlg-cssudra-ojjzqoyky (DTP) vaccine Need for prophylactic vaccination against polio Need for prophylactic vaccination and inoculation against poliomyelitis Need for prophylactic vaccination and inoculation against meningococcus Need for other specified prophylactic vaccination against single bacterial disease documented in this encounter Orders Immunization/Injection Count Last Ordered Date First Ordered Date HEPATITIS A VACCINE ADULT (H AVRIX/VAQTA) IM 1 06/12/2022 MENINGOCOCCAL CONJUGATE (MCV 4) VACCINE (MENVEO) 4-VALENT IM 1 06/12/2022 POLIOVIRUS VACCINE IPV IM OR SQ 1 3 TDAP (BOOSTRIX) VACCINE =>7YO IM 1 06/12/19 23 TYPHOID VICPS (TYPHIM ) VACCINE IM 05/30 YELLOW FEVER VACCINE SQ 1 06/12/2022 documented in this encounter Additional Health Concerns Infection Onset Date Last Indicated Resolved Time MRSA Comment:IP note: risk factors - DM, obesity Pos sinus 06/30/17 M Chito 07/01/17 07/01/2017 07/01/2017 documented as of this encounter Care Teams Land Commissioner Relationship Specialty Start Date End Date Jossie Patton, RADHA [address] [place] [phone] PCP - General 07/07/19 11/10/23 documented as of this encounter
--- OUTSIDE RECORDS SUMMARY | 2024-02-14 15:19 | XMS_ITS | Encounter Summary ---
Author Organization [facility] Address [address] [place] [address] Care Team Providers Care Concrete Batching Plant Operator Name Role Phone Jossie Patton RADHA Primary Care Provider Reason for Visit * Reason Onset Date Comments Diabetes 11/19/2019 ? status on her CGM Encounter Details Date Type Department Care Team (Late st Contact Info) Description 11/19/2019 Telephone [facility] Endocrinology [address] [place] [address] Bhumi Hayden, PRISCILA [address] [place] [address] Diabetes (? status on her CGM) Social History Tobacco Use Types Packs/Day Years [...] encounter Miscellaneous Notes * Telephone Encounter - Bhumi Hayden RN - 11/19/2019 0914 EDT I spoke with boyfriend. The last I knew she was working on getting 4 blood sugars daily, consistently. Once we get that bs log into her chart, we can order the Dexcom. documented in this encounter Plan of Treatment Not on file documented as of this encounter Goals Goal Patient Goal Type Associated Problems Recent Progress Patient-Stated? Author HEMOGLOBIN A1C < 7.0 Result Component Type 2 diabetes mellitus ([facility]) 8.7(07/07/2015 5:05 EST) No Annmarie Vigil documented as of this encounter Visit Diagnoses Not on filedocumented in this encounter Additional Health Concerns Infection Onset Date Last Indicated Resolved Time MRSA Comment:IP note: risk factors - DM, obesity Pos sinus 06/30/17 M Chito 07/01/17 07/01/2017 07/01/2017 documented as of this encounter Care Teams Concrete Batching Plant Operator Relationship Specialty Start Date End Date Jossie Patton APRN [address] [place] [phone] PCP - General 07/07/19 11/10/23 documented as of this encounter
--- OUTSIDE RECORDS SUMMARY | 2024-02-14 15:19 | XMS_ITS | Encounter Summary ---
Author Organization [facility] Address [address] [place] [address] Care Team Providers Care Pinball Machine Repairer Name Role Phone Annette Sidhu APRN Primary Care Provider [phone] Encounter Details Date Type Department Care Team (Latest Contact Info) Description 05/09/2018 18:37 EST - 05/09/2018 23:59 [facility] Hospital Encounter [facility] [address] [place] [address] Annette Sidhu APRN [address] [phone] Discharge Disposition: Home or Self Care [...] as of this encounter Discharge Diagnoses Diagnosis D72.829 Elevated white blood cell count, unspecified-D72.829[ICD-10-CM] documented in this encounter Medications at Time [...] 7.0 Result Component Type 2 diabetes mellitus ([facility]) 8.7(07/07/2015 5:05 EST) No Annmarie Vigil documented as of this encounter Visit Diagnoses Not on filedocumented in this encounter Additional Health Concerns Infection Onset Date Last Indicated Resolved Time MRSA Comment:IP note: risk factors - DM, obesity Pos sinus 06/30/17 M Chito 07/01/17 07/01/2017 07/01/2017 documented as of this encounter Care Teams Pinball Machine Repairer Relationship Specialty Start Date End Date Annette Sidhu, SPLITTING MACHINE FEEDER [address] [place] [phone] PCP - General 03/19/13 07/06/19 documented as of this encounter
--- OUTSIDE RECORDS SUMMARY | 2024-02-14 15:19 | XMS_ITS | Encounter Summary ---
Author Organization [facility] Address [address] [place] [address] Care Team Providers Care Advice Clerk Name Role Phone Jossie Patton RADHA Primary Care Provider Reason for Visit * Reason Comments Diabetes New CVE patient Encounter Details Date Type Department Care Team (Late st Contact Info) Description 09/08/2019 14:00 EDT Nurse Only [facility] Endocrinology [address] [place] [address] Bhumi Hayden, PRISCILA [address] [place] [address] Uncontrolled type 2 diabetes mellitus with hyperglycemia ([facility]) (Primary Dx) Social History Tobacco Use Types Packs/Day Years [...] - Inhaled Oxygen Concentration - - Weight 97.1 kg (214 lb) 09/08/2019 1628 EDT Height 152.4 cm (5') 09/08/2019 1628 EDT Body Mass Index 41.79 09/08/2019 1628 EDT documented in this encounter Functional Status [...] as of this encounter Progress Notes * Bhumi Hayden RN - 09/08/2019 1400 EDT Diabetes Education Note Change in Regimen Length of Visit: 60 minutes Visit type: in office Diagnosed with DM : unknown Latest A1c: 9.8% 06/22/2019 ROS: Checks Blood sugars: 3x a day SBGM results: FBS:131 Lunch: 160-170s Dinner: 160-170's Hypoglycemia: no. Lowest bs 108 and symptomatic Diet Hx: Breakfast: 1 egg,1 toast, mayo Lunch: avocado and tuna Supper: chicken cordon blue Snacks: hs apple with pb Beverages: water, crystal light . Activity: Walks daily 30 minutes to an hour. They have [address] acres. Education today: Physiology Meds and how they work. Carb Counting, Label reading, meal planning Education Needed: Insulin adjustment Sick days Dexcom teaching Assessment: e11.65 Hx of current problem: Pt states she won't go back to Endocrinology in [place] as she was not treated well. She reports they were more focused on her mental illness than her diabetes. Hx Bipolar. Six years ago tried to over-dose on insulin. For the last 6 years she had to go to the doctors office daily 5 days a week to get her insulin; no insulin on weekends. Recently they have allowed her boyfriend to supervise her insulin injections. She reports her mental illness as stable. She has no suicidal ideations and is not depressed at this time. She is upbeat, good eye contact, well kempt and conversive. She states she was Seroquel and blood sugars were 500's-600's so they changed her Abilify which shestates doesn't work as well but she is doing okay mentally and her blood sugars are so much better.She is interested in a Dexcom so she can check blood sugars even more frequently and work on improving her blood sugars. Symptoms: none. Blood sugars are closer to target with current regimen. Copays: Has Medicaid. Stage of change: action/preparation. Motivation 10. Comprehension 10. Plan: She will work on getting that 4th blood sugar in daily so she can get a Dexcom. Next Visit: With Endocrinology documented in this encounter Miscellaneous Notes * Addendum Note - Bhumi Hayden RN - 09/08/2019 1400 EDTAddended by: BHUMI HAYDEN on: 09/09/2019 08:48 Modules accepted: Level of Service * Addendum Note - Bhumi Hayden RN - 09/08/2019 1400 EDTAddended by: BHUMI HAYDEN on: 09/09/2019 14:10 Modules accepted: Orders documented in this encounter Plan of Treatment Not on file documented as of this encounter Goals Goal Patient Goal Type Associated Problems Recent Progress Patient-Stated? Author HEMOGLOBIN A1C < 7.0 Result Component Type 2 diabetes mellitus ([facility]) 8.7(07/07/2015 5:05 EST) No Annmarie Vigil documented as of this encounter Visit Diagnoses Diagnosis Uncontrolled type 2 diabetes mellitus with hyperglycemia ([facility])- Primary documented in this encounter Discontinued Medications Medication Sig Discontinue Reason Start Date End Da te cholecalciferol, vitamin D3, (VITAMIN D3 ORAL) 2,000 Int'l Units. 07/19/2019 020 QUEtiapine (SEROQUEL) 100 mg tablet Take 100 mg by mouth at bedtime. 05/22/2019 09/09/2019 QUEtiapine (SEROQUEL) 300 mg tablet Take 300 mg by mouth at bedtime. 06/03/2019 09/09/2019 documented as of this encounter Historical Medications * This list may reflect changes made after this encounter. Medication Sig Dispensed Refills Start Date End Date PROAIR HFA 90 mcg/actuation inhaler INHALE 1 TO 2 PUFFS EVERY 4 TO 6 HOURS NEEDED FOR WHEEZING 08/03/2019 amLODIPine (NORVASC) 10 mg tablet Take 10 mg by mouth daily. 07/20/2019 ARIPiprazole (ABILIFY) 2 mg tablet Take 2 mg by mouth daily. 08/26/2019 HUMALOG KWIKPEN INSULIN 100 unit/mL injectable pen INJECT 4 UNITS PLUS CORRECTION (1UNIT FOR EVERY 30 200) SUBCUTANEOUSLY BEFORE MEALS 08/26/2019 irbesartan (AVAPRO) 150 mg tablet Take 150 mg by mouth daily. 08/18/2019 nicotine (NICODERM CQ) 21 mg/24 hr patch APPLY TO HAIRLESS SKIN DAILY, ROTATE SITES 08/08/2019 simvastatin (ZOCOR) 40 mg tablet TAKE 1 TABLET BY MOUTH EVERYDAY AT BEDTIME 08/17/2019 cholecalciferol, vitamin D3, (VITAMIN D3 ORAL) 2,000 Int'l Units. 07/19/2019 0 added in this encounter Additional Health Concerns Infection Onset Date Last Indicated Resolved Time MRSA Comment:IP note: risk factors - DM, obesity Pos sinus 06/30/17 M Chito 07/01/17 07/01/2017 07/01/2017 documented as of this encounter Care Teams Advice Clerk Relationship Specialty Start Date End Date Jossie Patton APRN [address] [facility] [phone] PCP - General 07/07/19 11/10/23 documented as of this encounter
--- OUTSIDE RECORDS SUMMARY | 2024-02-14 15:19 | XMS_ITS | Encounter Summary ---
Author Organization [facility] Address [address] [place] [address] Care Team Providers Care Supervisor Mail Carriers Name Role Phone Jossie Patton APRN Primary Care Provider [phone] Stephanie Santos MD Primary Care Provider [phone] Encounter Details Date Type Department Care Team (Late st Contact Info) Description 05/28/2020 Lab Requisition [facility] Pathology & Laboratory Medicine - [address] [address] Outr Resulting Lab, Provider Social History Tobacco [...] Result Component Type 2 diabetes mellitus ([facility]) 8.7(07/07/2015 5:05 EST) No Annmarie Vigil documented as of this encounter Procedures Procedure Name Priority Date/Time Associated Diagnosis Comments VITAMIN D (25,OH) Routine 05/28/2020 9:40 EST documented in this encounter Results * VITAMIN D (25,OH) (05/28/2020 9:40 EST) 25OH Vitamin D Tot 30.3 30.0 - 100.0 ng/mL 05/30/2020 10:35 EST [facility] Comment: Vitamin D 25,OH Interpretive Ranges: Deficiency: ??<10.0 ng/mL Insufficiency: ??10.0 - 30.0 ng/mL Sufficiency: ??30.0 - 100.0 ng/mL Toxicity: ??>100.0 ng/mL Blood VENOUS BLOOD / Unknown 05/28/2020 9:40 EST 05/28/2020 21:45 EST Provider Outr Resulting Lab CHEMISTRY & BLOOD GAS ORDERABLES [facility] [address] [place] [address] documented in this encounter Visit Diagnoses Not on filedocumented in this encounter Additional Health Concerns Infection Onset Date Last Indicated Resolved Time MRSA Comment:IP note: risk factors - DM, obesity Pos sinus 06/30/17 M Chito 07/01/17 07/01/2017 07/01/2017 documented as of this encounter Care Teams Supervisor Mail Carriers Relationship Specialty Start Date End Date Jossie Patton APRN [address] [place] [phone] PCP - General 07/07/19 11/10/23 Stephanie Santos MD [address] [place], [place] [phone] PCP - General Family Medicine - Primary Care 11/11/23 documented as of this encounter
--- OUTSIDE RECORDS SUMMARY | 2024-02-14 15:19 | XMS_ITS | Encounter Summary ---
Author Organization [facility] Address [address] [place] [address] Care Team Providers Care Chiropractic Care Name Role Phone Jossie Patton APRN Primary Care Provider [phone] Stephanie Santos MD Primary Care Provider [phone] Encounter Details Date Type Department Care Team (Late st Contact Info) Description 03/09/2023 Lab Requisition [facility] Pathology & Laboratory Medicine - [address] [address] Outr Resulting Lab, Provider Social History Tobacco [...] Component Type 2 diabetes mellitus ([facility]) 8.7(07/07/2015 5:05 EST) No Annmarie Vigil documented as of this encounter Procedures Procedure Name Priority Date/Time Associated Diagnosis Comments HIV 1/2 ANTIGEN AND ANTIBODY, 4TH GENERATION Routine 03/08/2023 15:45 EST documented in this encounter Results * HIV 1/2 ANTIGEN AND ANTIBODY, 4TH GENERATION (03/08/2023 15:45 EST) HIV 1 and 2 Antibody/p24 Antigen, 4th Generation Negative Negative 03/11/2023 10:52 EST [facility] Comment:If acute HIV-1 infec tion is suspected in a high risk patient, submit plasma specimen for HIV-1 RNA quantitation test. Blood VENOUS BLOOD / Unknown 03/08/2023 15:45 EST 03/09/2023 21:19 EST Narrative [facility] - 03/11/2023 10:52 EST Fourth Generation assay performed on the Siemens Centaur XPT. Provider Outr Resulting Lab IMMUNOLOGY A ND SEROLOGY ORDERABLES [facility] [address] [place] [address] documented in this encounter Visit Diagnoses Not on filedocumented in this encounter Additional Health Concerns Infection Onset Date Last Indicated Resolved Time MRSA Comment:IP note: risk factors - DM, obesity Pos sinus 06/30/17 M Chito 07/01/17 07/01/2017 07/01/2017 documented as of this encounter Care Teams Chiropractic Care Relationship Specialty Start Date End Date Jossie Patton APRN [address] [place] [address] PCP - General 07/07/19 11/10/23 Stephanie Santos MD [address] [place] [address] PCP - General Family Medicine - Primary Care 11/11/23 documented as of this encounter
--- OUTSIDE RECORDS SUMMARY | 2024-02-14 15:19 | XMS_ITS | Encounter Summary ---
Author Organization [facility] Address [address] [place] [address] Care Team Providers Care Kindergarten Instructional Assistant Name Role Phone Jossie Patton APRN Primary Care Provider Reason for Visit * Reason Comments Otitis Externa right ear x 4 weeks constant. 3 different ear drops and oral antibiotics with no relief. symptoms moderate . can hear ok . came on suddenly questioned yeast * Referral (Routine) - Closed Specialty Diagnoses / Procedures Referred By Savannah ashton Referred To Contact Otolaryngology Diagnoses Otitis externa Jossie Patton APRN [address] [place] [address] Ron Sutton MD [address] [place] [phone] Referral ID Status Reason Start Date Expiration Date Visits Re quested Visits Authorized [id number] Closed 1 1 Encounter Details Date Type Department Care Team (Late st Contact Info) Description 10/21/2020 9:40 EDT Office Visit [facility] - [facility] [address] [place] [address] Ron Sutton MD [address] [place] [phone] Right ear pain (Primary Dx); TMJ dysfunction Social History Tobacco Use Types Packs/Day Years [...] 9:08 EDT documented as of this encounter Last Filed Vital Signs Vital Sign Reading Time Taken Comments Blood Pressure 154/97 10/21/2020 0916 EDT Pulse 95 10/21/2020 0916 EDT Temperature - - Respiratory Rate - - Oxygen Saturation - - Inhaled Oxygen Concentration - - Weight 97.5 kg (215 lb) 10/21/2020 0916 EDT Height 152.4 cm (5') 10/21/2020 0916 EDT Body Mass Index 41.99 10/21/2020 0916 EDT documented in this encounter Functional Status [...] as of this encounter Progress Notes * Ron Sutton MD - 10/21/2020 0940 EDT CHIEF COMPLAINT: Right ear pain HPI: 45-year-old female with a 4-week history of sudden onset of right ear pain has been treated with Ciprodex Augmentin steroid cream and antifungal drops without significant improvement. She denieshearing loss tinnitus vertigo or other ear symptoms. Past Medical History: Diagnosis Date ??? Anxiety [...] (mention of) complications 02/15/2005 ??? Wears glasses Past Surgical History: Procedure Laterality Date ??? SECTION 1998,2007 times 2 ??? CHOLECYSTECTOMY 11/25/2009 Dr. Mendez ??? HIP ARTHROSCOPY 2012 ??? TONSILLECTOMY 2000 Allergies Allergen Reactions ??? Lisinopril No outpatient medications have been marked as taking for the 10/21/20 encounter (Office Visit) with Ron Sutton MD. Family History Problem Relation Age of Onset ??? Cancer Maternal Aunt breast cancer ??? Cancer Maternal Grandmother breats cancer ??? Diabetes Paternal Grandmother ??? Diabetes Paternal Grandfather Social History Socioeconomic History ??? Marital status: Legally Spouse name: Not on file ??? Number of children: Not on file ??? Years of education: Not on file ??? Highest education level: Not on file Occupational History ??? Not on file Tobacco Use ??? Smoking status: Current Every Day Smoker Packs/day: 0.50 Years: 2.00 Pack years: 1.00 Types: Cigarettes ??? Smokeless tobacco: Never Used Substance and Sexual Activity ??? Alcohol use: No Comment: rare wine cooler ??? Drug use: No ??? Sexual activity: Yes Partners: Male Other Topics Concern ??? 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 Fob present and supportive. Hx of suicide attempt with insulinin past Social Determinants of Health Financial Resource Strain: [...] Gatherings with Friends and Family: ??? Attends Temple Services: ??? Active Member of Clubs or Organizations: ??? Attends Club or Organization Meetings: ??? Marital Status: REVIEW OF SYSTEMS: Significant for diabetes anxiety depression reflux otherwise negative for complete review of all systems PHYSICAL EXAM: BP (!) 154/97 Pulse 95 Ht 152.4 cm (60) Wt 97.5 kg (215 lb) BMI 41.99 kg/m?? General: Well-developed well-nourished alert oriented cooperative adult female no acute distress. Normal voice. The face is normal without lesions. Facial strength symmetric. Eye exam is normal. Ears: External ears are normal canals are clear tympanic membrane's are normal. Normal binocular otomicroscopy. Hearing is intact. Nose: Nasal dorsum is midline the airways patent. Oral cavity: Lips tongue floor mouth and bucca mucosa are within normal notes. Patient is missing right mandibular posterior teeth. There is TMJ tenderness to palpation on the right. Posterior pharynx is clear. Neck: No pathologic lymphadenopathy trach is midline thyroid is normal. Chest is clear to auscultation. Heart regular in rhythm. 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 Patient is advised to visit withher dentist. Follow-up with ENT as needed. documented in this encounter Plan of Treatment Not on file documented as of this encounter Goals Goal Patient Goal Type Associated Problems Recent Progress Patient-Stated? Author HEMOGLOBIN A1C < 7.0 Result Component Type 2 diabetes mellitus ([facility]) 8.7(07/07/2015 5:05 EST) Annmarie Lopez documented as of this encounter Visit Diagnoses Diagnosis Right ear pain- Primary Otalgia, unspecified TMJ dysfunction Temporomandibular joint disorders, unspecified documented in this encounter Discontinued Medications Medication Sig Discontinue Reason Start Date End Da te mupirocin (BACTROBAN) 2 % ointmentIndications:Nasa l vestibulitis Topically as directed BID, two 22 gm tubes for 30 days 06/28/2017 10/21/2020 glucagon (GLUCAGON EMERGENCY KIT, HUMAN,) 1 mg emergency injection kit Inject 1 mg into the muscle once as needed for up to 1 dose for Low Blood Sugar. 05/08/2014 10/21/2020 dexmethylphenidate (FOCALIN) 10 mg tablet Take 10 mg by mouth 3 times daily. 10/21/2020 acetaminophen (TYLENOL) 325 mg tablet Take 1-2 Tabs by mouth every 4 hours as needed for Pain. 05/16/2014 10/21/2020 documented as of this encounter Additional Health Concerns Infection Onset Date Last Indicated Resolved Time MRSA Comment:IP note: risk factors - DM, obesity Pos sinus 06/30/17 M Chito 07/01/17 07/01/2017 07/01/2017 documented as of this encounter Care Teams Kindergarten Instructional Assistant Relationship Specialty Start Date End Date Jossie Patton APRN [address] [place] [phone] PCP - General 07/07/19 11/10/23 documented as of this encounter
--- OUTSIDE RECORDS SUMMARY | 2024-02-14 15:19 | XMS_ITS | Encounter Summary ---
Author Organization [facility] Address [address] [place] [address] Care Team Providers Care Cane Feeder Name Role Phone Jossie Patton RADHA Primary Care Provider [phone] Reason for Visit * Reason Onset Date Comments Appointment Related 11/03/2019 Encounter Details Date Type Department Care Team (Late st Contact Info) Description 11/03/2019 Telephone [facility] Hematology & Oncology - [facility] [address] [place] [address] [place], [place] [address] [place], [place] [id number] Appointment Related Social History Tobacco Use Types [...] encounter Miscellaneous Notes * Telephone Encounter - [place] - 11/03/2019 1209 EDT Spoke to Guzman - she was unable to get on the Zoom call for our appointment, would like a call backto reschedule for a later date. documented in this encounter Plan of Treatment Not on file documented as of this encounter Goals Goal Patient Goal Type Associated Problems Recent Progress Patient-Stated? Author HEMOGLOBIN A1C < 7.0 Result Component Type 2 diabetes mellitus ([facility]) 8.7(07/07/2015 5:05 EST) No Annmarie Vigil documented as of this encounter Visit Diagnoses Not on filedocumented in this encounter Additional Health Concerns Infection Onset Date Last Indicated Resolved Time MRSA Comment:IP note: risk factors - DM, obesity Pos sinus 06/30/17 M Chito 07/01/17 07/01/2017 07/01/2017 documented as of this encounter Care Teams Cane Feeder Relationship Specialty Start Date End Date Jossie Patton APRN [address] [place] [phone] PCP - General 07/07/19 11/10/23 documented as of this encounter
--- OUTSIDE RECORDS SUMMARY | 2024-02-14 15:19 | XMS_ITS | Encounter Summary ---
Author Organization [facility] Address [address] [place] [address] Care Team Providers Care Rivet Heater Gas Name Role Phone PoojaJossie karimi RADHA Primary Care Provider Reason for Visit * Reason Onset Date Comments Appointment Related 11/11/2019 fcp Encounter Details Date Type Department Care Team (Late st Contact Info) Description 11/11/2019 Telephone [facility] Hematology & Oncology - [address] [address] Fcp, Provider, Appointment Related (fcp) Social History [...] * Telephone Encounter - Bessie Rojas - 11/11/2019 0821 EDT Emailed patient to see if she would like to reschedule missed Zoom visit with [place]. documented in this encounter Plan of Treatment Not on file documented as of this encounter Goals Goal Patient Goal Type Associated Problems Recent Progress Patient-Stated? Author HEMOGLOBIN A1C < 7.0 Result Component Type 2 diabetes mellitus ([facility]) 8.7(07/07/2015 5:05 EST) No Annmarie Vigil documented as of this encounter Visit Diagnoses Not on filedocumented in this encounter Additional Health Concerns Infection Onset Date Last Indicated Resolved Time MRSA Comment:IP note: risk factors - DM, obesity Pos sinus 06/30/17 M Chito 07/01/17 07/01/2017 07/01/2017 documented as of this encounter Care Teams Rivet Heater Gas Relationship Specialty Start Date End Date Jossie Patton APRN [address] [place] [phone] PCP - General 07/07/19 11/10/23 documented as of this encounter
--- OUTSIDE RECORDS SUMMARY | 2024-02-14 15:19 | XMS_ITS | Encounter Summary ---
Author Organization [facility] Address [address] [place] [address] Care Team Providers Care Area Coordinator Name Role Phone Annette Sidhu APRN Primary Care Provider [phone] Jossie Patton APRN Primary Care Provider [phone] Stephanie Santos MD Primary Care Provider [phone] Encounter Details Date Type Department Care Team (Late st Contact Info) Description 05/05/2019 Lab Requisition [facility] Pathology & Laboratory Medicine - [address] [address] Terry Angel MD [address] [place] [phone] Bipolar II disorder ([facility]) Social History Tobacco Use Types Packs/Day Years [...] Component Type 2 diabetes mellitus ([facility]) 8.7(07/07/2015 5:05 EST) No Annmarie Vigil documented as of this encounter Procedures Procedure Name Priority Date/Time Associated Diagnosis Comments LITHIUM Routine 05/05/2019 11:56 EST Bipolar II disorder ([facility]) documented in this encounter Results * LITHIUM (05/05/2019 11:56 EST) [place] 0.5 See Note mEq/L 05/05/2019 16:29 EST [facility] Comment: Therapeutic Range for [place]: 18 years and older: ??0.6 - 1.2 mEq/L Therapeutic range not established for individuals <18 years old. Blood VENOUS BLOOD / Unknown 05/05/2019 11:56 EST 05/05/2019 16:04 EST Terry Angel MD CHEMISTRY & BLOOD G ORDERABLES [facility] [address] [place] [address] documented in this encounter Visit Diagnoses Diagnosis Bipolar II disorder ([facility]) Other bipolar disorders documented in this encounter Additional Health Concerns Infection Onset Date Last Indicated Resolved Time MRSA Comment:IP note: risk factors - DM, obesity Pos sinus 06/30/17 M Chito 07/01/17 07/01/2017 07/01/2017 documented as of this encounter Care Teams Area Coordinator Relationship Specialty Start Date End Date Annette Sidhu APRN [address] [place] [phone] PCP - General 03/19/13 07/06/19 Jossie Patton APRN [address] [place] [phone] PCP - General 07/07/19 11/10/23 Stephanie Santos MD [address] [place], [place] [phone] PCP - General Family Medicine - Primary Care 11/11/23 documented as of this encounter
--- OUTSIDE RECORDS SUMMARY | 2024-02-14 15:19 | XMS_ITS | Encounter Summary ---
Author Organization [facility] Address [address] [place] [address] Care Team Providers Care Derrick Barge Operator Name Role Phone Jossie Patton RADHA Primary Care Provider [phone] Reason for Visit * Reason Onset Date Comments Medication Management 08/27/2019 Encounter Details Date Type Department Care Team (Late st Contact Info) Description 08/27/2019 Telephone [facility] - [address] [address] Tio Cassidy MD [address] [place] [address] Medication Management Social History Tobacco Use Types Packs/Day Years [...] Encounter - Jesus Olvera RN - 08/27/2019 1327 EDT Called and left message for RN Heena Luis relaying Dr. Vance's message below: She will not qualify because she is not using insulin 4 times daily And my understanding is that she wont due to previous suicidal attempts Instructed RN to call back with any further questions. * Telephone Encounter - Aziza Billings - 08/27/2019 0961 EDT Heena Luis called from [facility], patient's primary care office, to ask if our office can order a CGM for patient. Patient is testing 4 times daily. Please call back to advise. documented in this encounter Plan of Treatment Not on file documented as of this encounter Goals Goal Patient Goal Type Associated Problems Recent Progress Patient-Stated? Author HEMOGLOBIN A1C < 7.0 Result Component Type 2 diabetes mellitus ([facility]) 8.7(07/07/2015 5:05 EST) No Annmarie Vigil documented as of this encounter Visit Diagnoses Not on filedocumented in this encounter Additional Health Concerns Infection Onset Date Last Indicated Resolved Time MRSA Comment:IP note: risk factors - DM, obesity Pos sinus 06/30/17 M Chito 07/01/17 07/01/2017 07/01/2017 documented as of this encounter Care Teams Derrick Barge Operator Relationship Specialty Start Date End Date Jossie Patton APRN [address] [place] [address] PCP - General 07/07/19 11/10/23 documented as of this encounter
--- OUTSIDE RECORDS SUMMARY | 2024-02-14 15:19 | XMS_ITS | Encounter Summary ---
Author Organization [facility] Address [address] [place] [address] Care Team Providers Care Rn Correctional Name Role Phone Jossie Patton APRN Primary Care Provider [phone] Stephanie Santos MD Primary Care Provider [phone] Reason for Visit * Reason Onset Date Comments Appointment Related 06/12/2022 Encounter Details Date Type Department Care Team (Late st Contact Info) Description 06/12/2022 Telephone [facility] Infectious Disease - [address] [phone] Masood Macias MD [address] [place] [address], [address] [place] [address] Appointment Related Social History Tobacco Use Types [...] Miscellaneous Notes * Telephone Encounter - Dahiana Jacobson - 06/12/2022 0957 EST Patient leaving on 06/25 to [place] and will return 07/04 fees discussed with patient. Needs sooner appt than available. documented in this encounter Plan of Treatment Not on file documented as of this encounter Goals Goal Patient Goal Type Associated Problems Recent Progress Patient-Stated? Author HEMOGLOBIN A1C < 7.0 Result Component Type 2 diabetes mellitus ([facility]) 8.7(07/07/2015 5:05 EST) No Annmarie Vigil documented as of this encounter Visit Diagnoses Not on filedocumented in this encounter Additional Health Concerns Infection Onset Date Last Indicated Resolved Time MRSA Comment:IP note: risk factors - DM, obesity Pos sinus 06/30/17 M Chito 07/01/17 07/01/2017 07/01/2017 documented as of this encounter Care Teams Rn Correctional Relationship Specialty Start Date End Date Jossie Patton APRN [address] [place] [phone] PCP - General 07/07/19 11/10/23 Stephanie Santos MD [address] [place] [address] PCP - General Family Medicine - Primary Care 11/11/23 documented as of this encounter
--- OUTSIDE RECORDS SUMMARY | 2024-02-14 15:19 | XMS_ITS | Encounter Summary ---
Author Organization [facility] Address [address] [place] [address] Care Team Providers Care First Sampler Name Role Phone Annette Sidhu APRN Primary Care Provider Reason for Visit * Reason Onset Date Comments Other 08/01/2017 Encounter Details Date Type Department Care Team (Late st Contact Info) Description 08/01/[address] [address] Peter Barber MD [address] [place] [address] Other Social History Tobacco Use Types Packs/Day [...] encounter Miscellaneous Notes * Telephone Encounter - Kristi Thibodeaux - 08/01/2017 1501 EDT Spoke with Guzman and let her know her CT scan should be done per Dr. Barber's instructions 10-14after having sinus infections symptoms. She's aware CT scan is approved at [facility] until 10/30. documented in this encounter Plan of Treatment Not on file documented as of this encounter Goals Goal Patient Goal Type Associated Problems Recent Progress Patient-Stated? Author HEMOGLOBIN A1C < 7.0 Result Component Type 2 diabetes mellitus ([facility]) 8.7(07/07/2015 5:05 EST) No Annmarie Vigil documented as of this encounter Visit Diagnoses Not on filedocumented in this encounter Additional Health Concerns Infection Onset Date Last Indicated Resolved Time MRSA Comment:IP note: risk factors - DM, obesity Pos sinus 06/30/17 M Chito 07/01/17 07/01/2017 07/01/2017 documented as of this encounter Care Teams First Sampler Relationship Specialty Start Date End Date Annette Sidhu APRN [address] [place] [phone] PCP - General 03/19/13 07/06/19 documented as of this encounter
--- OUTSIDE RECORDS SUMMARY | 2024-02-14 15:19 | XMS_ITS | Encounter Summary ---
Author Organization [facility] Address [address] [place] [address] Care Team Providers Care Dopeman Name Role Phone Jossie Patton RADHA Primary Care Provider [phone] Reason for Visit * Reason Onset Date Comments Medication Management 07/07/2019 Encounter Details Date Type Department Care Team (Late st Contact Info) Description 07/07/2019 Telephone [facility] - [address] [address] Lucía Ku RN Medication Management Social History Tobacco Use Types [...] encounter Miscellaneous Notes * Telephone Encounter - Tio Cassidy MD - 07/07/2019 1234 EDT Andrés Castrejon Do you mind calling the pharmacy about the information I requested previously Also, please call the primary care physician and tell them her PCP will have to coordinate home health services so that this patient can get insulin administered with supervision. I know how difficult this may be but I am not willing to prescribe insulin for this patient who is actively suicidal unless a healthcare provider is administering. * Telephone Encounter - Lucía Ku RN - 07/07/2019 0833 EDT Encounter opened in error. Lucía Ku RN Endocrinology documented in this encounter Plan of Treatment Not on file documented as of this encounter Goals Goal Patient Goal Type Associated Problems Recent Progress Patient-Stated? Author HEMOGLOBIN A1C < 7.0 Result Component Type 2 diabetes mellitus ([facility]) 8.7(07/07/2015 5:05 EST) Annmarie Lopez documented as of this encounter Visit Diagnoses Not on filedocumented in this encounter Additional Health Concerns Infection Onset Date Last Indicated Resolved Time MRSA Comment:IP note: risk factors - DM, obesity Pos sinus 06/30/17 M Chito 07/01/17 07/01/2017 07/01/2017 documented as of this encounter Care Teams Dopeman Relationship Specialty Start Date End Date Jossie Patton APRN [address] [place] [phone] PCP - General 07/07/19 11/10/23 documented as of this encounter
--- OUTSIDE RECORDS SUMMARY | 2024-02-14 15:19 | XMS_ITS | Encounter Summary ---
Author Organization [facility] Address [address] [place] [address] Care Team Providers Care Orthopedic Physician Assistant Name Role Phone Jossie Patton RADHA Primary Care Provider Encounter Details Date Type Department Care Team (Latest Contact Info) Description 07/07/2019 Travel Social History Tobacco Use Types Packs/Day [...] 7.0 Result Component Type 2 diabetes mellitus ([facility]) 8.7(07/07/2015 5:05 EST) No Annmarie Vigil documented as of this encounter Visit Diagnoses Not on filedocumented in this encounter Additional Health Concerns Infection Onset Date Last Indicated Resolved Time MRSA Comment:IP note: risk factors - DM, obesity Pos sinus 06/30/17 M Chito 07/01/17 07/01/2017 07/01/2017 documented as of this encounter Care Teams Orthopedic Physician Assistant Relationship Specialty Start Date End Date Jossie Patton, RADHA [address] [place] [phone] PCP - General 07/07/19 11/10/23 documented as of this encounter
--- OUTSIDE RECORDS SUMMARY | 2024-02-14 15:19 | XMS_ITS | Encounter Summary ---
Author Organization [facility] Address [address] [place] [address] Care Team Providers Care Pad Extractor Tender Name Role Phone Annette Sidhu APRN Primary Care Provider [phone] Encounter Details Date Type Department Care Team (Late st Contact Info) Description 05/28/2018 Results Only Imaging [facility] [phone] Annette Sidhu APRN [address] [phone] Social History Tobacco Use Types [...] Component Type 2 diabetes mellitus ([facility]) 8.7(07/07/2015 5:05 EST) No Annmarie Vigil documented as of this encounter Visit Diagnoses Not on filedocumented in this encounter Additional Health Concerns Infection Onset Date Last Indicated Resolved Time MRSA Comment:IP note: risk factors - DM, obesity Pos sinus 06/30/17 M Chito 07/01/17 07/01/2017 07/01/2017 documented as of this encounter Care Teams Pad Extractor Tender Relationship Specialty Start Date End Date Annette Sidhu, HIGH SCHOOL ADMISSIONS REPRESENTATIVE [address] [place] [phone] PCP - General 03/19/13 07/06/19 documented as of this encounter
--- OUTSIDE RECORDS SUMMARY | 2024-02-14 15:19 | XMS_ITS | Encounter Summary ---
Author Organization [facility] Address [address] [place] [address] Care Team Providers Care Material Scheduler Name Role Phone Jossie Patton APRN Primary Care Provider [phone] Stephanie Santos MD Primary Care Provider [phone] Encounter Details Date Type Department Care Team (Late st Contact Info) Description 10/19/2022 Lab Requisition [facility] Pathology & Laboratory Medicine - [address] [address] Stephanie Santos MD [address] [place], [place] [id number] Encounter for screening for malignant neoplasm of cervix; Encounter for general adult medical examination without abnormal findings Social History Tobacco Use Types Packs/Day Years [...] Type 2 diabetes mellitus ([facility]) 8.7(07/07/2015 5:05 EST) No Annmarie Vigil documented as of this encounter Procedures Procedure Name Priority Date/Time Associated Diagnosis Comments PAP TEST Today 10/18/2022 14:30 EDT Encounter for screening for malignant neoplasm of cervix Encounter for general adult medical examination without abnormal findings CHLAMYDIA/N. GONORRHOEAE AMPLIFIED NUCLEIC ACID, THINPREP Today 10/18/2022 14:30 EDT HPV DNA DETECTION WITH GENOTYPING, PCR Today 10/18/2022 14:30 EDT Encounter for screening for malignant neoplasm of cervix Encounter for general adult medical examination without abnormal findings documented in this encounter Results * HUMAN PAPILLOMAVIRUS (HPV) DETECTION-HIGH RISK TYPES (10/18/2022 14:30 EDT) HPV other High Risk types, PCR Negative Negative 11/06/2022 16:45 EDT [facility] Comment:No E6 or E7 mRNA is detected from HPV types 16,18,31,33,35,39,45,51,52,56,58,59,66, and 68 by proposal writer mediated amplification. Papanicolaou smear specimen (specimen) CERVIX UTERI STRUCTURE / Unknown 10/18/2022 14:30 EDT 11/05/2022 13:53 EDT Stephanie Santos MD MICROBIOLOGY - GENER AL ORDERABLES [facility] [address] [place] [address] * PAP TEST (10/18/2022 14:30 EDT) Specimens A. Cervix and/or Endocervix VAGINAL / CERVICAL/ENDOCERV ICAL, ThinPrep Imaging System with Manual Evaluation 11/06/2022 16:45 EDT [facility] Specimen Adequacy Satisfactory for Evaluation - transformation zone component absent 11/06/2022 16:45 EDT [facility] General Categorization Negative for intraepithelial lesion or malignancy 11/06/2022 16:45 EDT [facility] Attestation . 11/06/2022 16:45 T [facility] at 1645 Clinical History See below 11/07/19 16:45 EDT [facility] HPV The result for the Human Papillomavirus (HPV) Detection-High Risk Types is Negative. No E6 or E7 mRNA is detected from HPV types 16,18,31,33,35,39 ,45,51,52,56,58,5 9,66, and 68 by proposal writer mediated amplification.Chiquis ting was performed on specimen [id number] and was resulted on 11/06/2022 1645 EDT by SRINI, LAB INSTRUMENT RESULTS IN 11/06/2022 16:45 EDT [facility] Performing Lab [facility] 11/06/2022 16:45 EDT [facility] Scanned Images 11/06/2022 16:45 EDT [facility] Papanicolaou smear specimen (specimen) CERVIX UTERI STRUCTURE / Unknown 10/18/2022 14:30 EDT 10/22/2022 13:40 EDT Stephanie Santos MD PATHOLOGY ORDERABLES [facility] [address] [place] [address] * CHLAMYDIA/N. GONORRHOEAE AMPLIFIED RNA, THINPREP (10/18/2022 14:30 EDT) Neisseria gonorrhoeae Result Negative Negative 10/22/2022 14:25 EDT [facility] Chlamydia trachomatis Result Negative Negative 10/22/2022 14:25 EDT [facility] Papanicolaou smear specimen (specimen) CERVIX UTERI STRUCTURE / Unknown 10/18/2022 14:30 EDT 10/22/2022 8:31 EDT Stephanie Santos MD MICROBIOLOGY - GENER AL ORDERABLES [facility] [address] [place] [address] documented in this encounter Visit Diagnoses Diagnosis Encounter for screening for malignant neoplasm of cervix Screening for malignant neoplasm of the cervix Encounter for general adult medical examination without abnormal findings Unspecified general medical examination documented in this encounter Additional Health Concerns Infection Onset Date Last Indicated Resolved Time MRSA Comment:IP note: risk factors - DM, obesity Pos sinus 06/30/17 M Chito 07/01/17 07/01/2017 07/01/2017 documented as of this encounter Care Teams Material Scheduler Relationship Specialty Start Date End Date Jossie Patton APRN [address] [place] [phone] PCP - General 07/07/19 11/10/23 Stephanie Santos MD [address] [place] [address] PCP - General Family Medicine - Primary Care 11/11/23 documented as of this encounter
--- OUTSIDE RECORDS SUMMARY | 2024-02-14 15:19 | XMS_ITS | Encounter Summary ---
Author Organization [facility] Address [address] [place] [address] Care Team Providers Care Parts Salesperson Name Role Phone Jossie Patton APRN Primary Care Provider [phone] Stephanie Santos MD Primary Care Provider [phone] Encounter Details Date Type Department Care Team (Late st Contact Info) Description 07/30/[address] [facility] Pathology & Laboratory Medicine - [address] [address] Outr Resulting Lab, Provider Social History Tobacco [...] 7.0 Result Component Type 2 diabetes mellitus ([facility]) 8.7(07/07/2015 5:05 EST) No Annmarie Vigil documented as of this encounter Procedures Procedure Name Priority Date/Time Associated Diagnosis Comments VITAMIN B12 Routine 07/30/2020 8:45 EDT documented in this encounter Results * VITAMIN B12 (07/30/2020 8:45 EDT) Vitamin B12 370 211 - 911 pg/mL 08/01/2020 10:48 EDT [facility] Blood VENOUS BLOOD / Unknown 07/30/2020 8:45 EDT 07/31/2020 16:22 EDT Provider Outr Resulting Lab CHEMISTRY & BLOOD GAS ORDERABLES [facility] [address] [place] [address] documented in this encounter Visit Diagnoses Not on filedocumented in this encounter Additional Health Concerns Infection Onset Date Last Indicated Resolved Time MRSA Comment:IP note: risk factors - DM, obesity Pos sinus 06/30/17 M Chito 07/01/17 07/01/2017 07/01/2017 documented as of this encounter Care Teams Parts Salesperson Relationship Specialty Start Date End Date Jossie Patton APRN [address] [place] [phone] PCP - General 07/07/19 11/10/23 Stephanie Santos MD [address] [place] [address] PCP - General Family Medicine - Primary Care 11/11/23 documented as of this encounter
--- OUTSIDE RECORDS SUMMARY | 2024-02-14 15:19 | XMS_ITS | Encounter Summary ---
Author Organization [facility] Address [address] [place] [address] Care Team Providers Care Load Out Worker Name Role Phone Jossie Patton APRN Primary Care Provider [phone] Stephanie Santos MD Primary Care Provider [phone] Encounter Details Date Type Department Care Team (Late st Contact Info) Description 03/09/2023 Lab Requisition [place] Pathology & Laboratory Medicine - [address] [address] Outr Resulting Lab, Provider Social History Tobacco [...] 7.0 Result Component Type 2 diabetes mellitus ([facility]) 8.7(07/07/2015 5:05 EST) No Annmarie Vigil documented as of this encounter Procedures Procedure Name Priority Date/Time Associated Diagnosis Comments CHLAMYDIA/N. GONORRHOEAE AMPLIFIED NUCLEIC ACID Routine 03/08/2023 15:45 EST documented in this encounter Results * CHLAMYDIA/N. GONORRHOEAE AMPLIFIED RNA (03/08/2023 15:45 EST) Neisseria gonorrhoeae Result Negative Negative 03/11/2023 13:12 EST [facility] Chlamydia trachomatis Result Negative Negative 03/11/2023 13:12 EST [facility] Urine URINE / Unknown 03/08/2023 1 5:45 EST 03/10/2023 17:52 EST Narrative [facility] - 03/11/2023 13:12 EST A first catch urine specimen is acceptable for detection of Gonorrhea and Chlamydia, but might detect up to 10% fewer infections when compared with vaginal and endocervical swab samples. Provider Outr Resulting Lab MICROBIOLOGY - GENERAL ORDERABLES [facility] [address] [place] [address] documented in this encounter Visit Diagnoses Not on filedocumented in this encounter Additional Health Concerns Infection Onset Date Last Indicated Resolved Time MRSA Comment:IP note: risk factors - DM, obesity Pos sinus 06/30/17 M Chito 07/01/17 07/01/2017 07/01/2017 documented as of this encounter Care Teams Load Out Worker Relationship Specialty Start Date End Date Jossie Patton APRN [address] [place] [phone] PCP - General 07/07/19 11/10/23 Stephanie Santos MD [address] [place] [address] PCP - General Family Medicine - Primary Care 11/11/23 documented as of this encounter
--- OUTSIDE RECORDS SUMMARY | 2024-02-14 15:19 | XMS_ITS | Encounter Summary ---
Author Organization [facility] Address [address] [place] [address] Care Team Providers Care Hanger Off Name Role Phone Jossie Patton APRN Primary Care Provider [phone] Stephanie Santos MD Primary Care Provider [phone] Encounter Details Date Type Department Care Team (Late st Contact Info) Description 08/23/2023 Lab Requisition [facility] Pathology & Laboratory Medicine - [address] [address] Outr Resulting Lab, Provider Social History Tobacco [...] 2 diabetes mellitus ([facility]) 8.7(07/07/2015 5:05 EST) No Annmarie Vigil documented as of this encounter Procedures Procedure Name Priority Date/Time Associated Diagnosis Comments VAGINAL CTGC AND VAGINITIS/VAGINOSIS MOLECULAR DETECTION Routine 08/23/2023 10:00 EDT documented in this encounter Results * (ABNORMAL) VAGINAL CTGC AND VAGINITIS/VAGINOSIS MOLECULAR DETECTION (08/23/2023 10:00 EDT) Sushma glabrata Positive(A) Negative 08/24/2023 13:34 EDT [facility] Trichomonas Vaginalis Negative Negative 08/24/2023 13:34 EDT [facility] BV (Bacterial vaginosis) Negative Negative 08/24/2023 13:34 EDT [facility] Neisseria gonorrhoeae Result Negative Negative 08/24/2023 13:34 EDT [facility] Chlamydia trachomatis Result Negative Negative 08/24/2023 13:34 T [facility] Sushma Species Positive(A) Negative 08/24/19 13:34 EDT [facility] Swab VAGINAL STRUCTURE / Unknown 08/23/2023 10:00 EDT 08/23/2023 22:12 EDT Provider Outr Resulting Lab MICROBIOLOGY - GENERAL ORDERABLES [facility] [address] [place] [address] documented in this encounter Visit Diagnoses Not on filedocumented in this encounter Additional Health Concerns Infection Onset Date Last Indicated Resolved Time MRSA Comment:IP note: risk factors - DM, obesity Pos sinus 06/30/17 M Chito 07/01/17 07/01/2017 07/01/2017 documented as of this encounter Care Teams Hanger Off Relationship Specialty Start Date End Date Jossie Patton APRN [address] [place] [address] PCP - General 07/07/19 11/10/23 Stephanie Santos MD [address] [place] [address] PCP - General Family Medicine - Primary Care 11/11/23 documented as of this encounter
--- OUTSIDE RECORDS SUMMARY | 2024-02-14 15:19 | XMS_ITS | Encounter Summary ---
Author Organization [facility] Address [address] [place] [address] Care Team Providers Care Venetian Blind Cleaner And Repairer Name Role Phone Annette Sidhu APRN Primary Care Provider Encounter Details Date Type Department Care Team (Late st Contact Info) Description 02/09/2019 Results Only [facility] [phone] Annette Sidhu APRN [address] [phone] Social History Tobacco Use Types [...] 7.0 Result Component Type 2 diabetes mellitus ([facility]) 8.7(07/07/2015 5:05 EST) No Annmarie Vigil documented as of this encounter Procedures Procedure Name Priority Date/Time Associated Diagnosis Comments LITHIUM Routine 02/09/2019 13:38 EDT documented in this encounter Results * (ABNORMAL) LITHIUM (02/09/2019 13:38 EDT) [place] 0.4(L) 0.6 - 1.2 mEq/L 02/09/2019 20:50 EDT [facility] BLOOD SPECIMEN / Unknown 02/09/2019 13:38 EDT 02/09/2019 20:38 EDT Annette Sidhu APRN CHEMISTRY & BLOOD GA S ORDERABLES [facility] [address] [place] [address] documented in this encounter Visit Diagnoses Not on filedocumented in this encounter Additional Health Concerns Infection Onset Date Last Indicated Resolved Time MRSA Comment:IP note: risk factors - DM, obesity Pos sinus 06/30/17 M Chito 07/01/17 07/01/2017 07/01/2017 documented as of this encounter Care Teams Venetian Blind Cleaner And Repairer Relationship Specialty Start Date End Date Annette Sidhu APRN [address] [place] [phone] PCP - General 03/19/13 07/06/19 documented as of this encounter
--- OUTSIDE RECORDS SUMMARY | 2024-02-14 15:19 | XMS_ITS | Encounter Summary ---
Author Organization [facility] Address [address] [place] [address] Care Team Providers Care Nuclear Technician Name Role Phone Jossie Patton APRN Primary Care Provider [phone] Reason for Visit * Reason Comments Diabetes * Referral (Routine) - Closed Specialty Diagnoses / Procedures [facility] To Contact Endocrinology Diagnoses Type 2 diabetes mellitus without complications ([facility]) Jossie Patton APRN [address] [place] [address] [facility] Endocrinology [address] [place] [id number] Referral ID Status Reason Start Date Expiration Date Visits Re quested Visits Authorized [id number] Closed 1 1 Encounter Details Date Type Department Care Team (Latest Contact Info) Description 07/07/2019 10:20 EDT Office Visit [facility] Endocrinology - [address] [address] Tio Cassidy MD [address] [place] [address] Uncontrolled type 2 diabetes mellitus with hyperglycemia ([facility]) (Primary Dx); Hypercalcemia; History of suicidal ideation; History of suicide attempt Social History Tobacco Use Types Packs/Day Years [...] Sign Reading Time Taken Comments Blood Pressure 141/74 07/07/2019 1026 EDT Pulse 78 07/07/2019 1026 EDT Temperature - - Respiratory Rate - - Oxygen Saturation - - Inhaled Oxygen Concentration - - Weight 91.6 kg (202 lb) 07/07/2019 1026 EDT Height 152.4 cm (5') 07/07/2019 1026 EDT Body Mass Index 39.45 07/07/2019 1026 EDT documented in this encounter Functional Status [...] No 11/23/2015 documented as of this encounter Patient Instructions * Patient Instructions* Tio Cassidy MD - 07/07/2019 10:20 EDT Stop Jardiance documented in this encounter Progress Notes * Tio Cassidy MD - 07/07/2019 1020 EDT 07/07/2019 NEW PATIENT PATIENT: Guzman Jean CHIEF COMPLAINT Diabetes HISTORY OF PRESENT ILLNESS Guzman Jean is a very pleasant 43 y.o. female who presents with diabetes HPI First appointment July 07, 2019 She recently established care with a new PCP and due to her poorly controlled diabetes-A1c 9.8% on June 22, 2019 she was referred to us. She takes metformin, Jardiance, Victoza. It is worth noting that previous providers had avoided insulin because she attempted suicide twice by taking too muchinsulin. The endocrine division saw her back in 2013 when she was 25 weeks . Records to speak of history of PTSD, ADHD, borderline personality disorder, prior suicide attempt by insulin overdose. At that time she was taking metformin 1000 mg twice daily, glyburide 5 mg twice daily. During hospital stay in April 2013 and an ED visit in December 2013 she was evaluated by psychiatry. In December 2013 she has been referred by her BARGE CAPTAIN for emotional dysregulation and self-harmimpulses in the context of a recent break-up with a boyfriend. Her admission in April 2013 was due to a serious suicide attempt with insulin overdose. Reports: Fasting 300s! Still actively suicidal. She told me 2 months ago that she was thinking about jumping off a bridge,she was thinking about committing suicide by executive personal assistant-that meant doing something bad and confronting police officers Blood sugars are always very high Reports frequent yeast infections and yet she was prescribed Jardiance Patient who needs insulin to control diabetes but has a history of 2 suicide attempts with insulin.Patient sees Flip at [facility] in [place] but I need a second opinion. she saw Dr Terry Angel for 7 years until 2 months ago. Diabetes history (below info updated each visit) Diagnosed around age 20 Current medications include:Metformin 1000 mg twice daily, Actos 30 mg daily, Januvia 100 mg daily,Victoza 1.8 mg daily, Jardiance 10 mg daily, Complications include: no complications Self-monitorin x day Current control: poorly controlled Medications previously tried: see above Preventive care: Due for next diabetes eye exam? Had it 05/2019 (no issues), Has seen a certified alcohol and drug counselor in the last year? NO Important past medical history: Yeast infections after Jardiance. 5 times/las 12 months Important family history: not discussed today Lab Results Component Value Date HGBA1C 8.7 07/07/2015 Lab Results Component Value Date UCREA 15.4 05/12/2014 MICROALBUR <0.2 11/21/2012 MICRALBCRRAT Unable to calculate ug/mg Crea result. 11/21/2012 Lab Results Component Value Date CHOL 224 05/07/2013 TRIG 306 05/07/2013 HDL 54 05/07/2013 LDLBASE 109 05/07/2013 CHOLHDL 4.1 05/07/2013 FASTFASTN Unknown 05/07/2013 Lab Results Component Value Date FRUCTOSAMINE 286 (H) 04/26/2014 Lab Results Component Value Date K 4.5 12/20/2015 NA 134 (L) 12/31/2013 CL 102 12/31/2013 CO2 18 (L) 12/31/2013 ALKPHOS 71 04/14/2013 TBIL 0.5 04/14/2013 AST 25 04/30/2014 ALT 27 04/30/2014 LABALBU 4.5 04/14/2013 TP 6.9 04/14/2013 CREATININE 0.58 04/30/2014 CALCGFR >60 04/30/2014 BUN 7 (L) 04/23/2014 CALCIUM 9.5 04/14/2013 CALCCA 9.4 04/14/2013 SERGLU 87 05/08/2014 FASTFASTN2 Unknown 04/14/2013 PAST HISTORY Past Medical History: Diagnosis Date ??? Anxiety [...] Surgical History: Procedure Laterality Date ??? SECTION 1998,2008 times 2 ??? CHOLECYSTECTOMY 11/25/2009 Dr. Mendez ??? HIP ARTHROSCOPY 2012 ??? TONSILLECTOMY 2000 Family History Problem Relation Age of Onset ??? Cancer Maternal Aunt breast cancer ??? Cancer Maternal Grandmother breats cancer ??? Diabetes Paternal Grandmother ??? Diabetes Paternal Grandfather Social History Tobacco Use ??? Smoking status: Current Every Day Smoker Packs/day: 0.50 Years: 2.00 Pack years: 1.00 Types: Cigarettes ??? Smokeless tobacco: Never Used Substance Use Topics ??? Alcohol use: No ??? Drug use: No MEDICATIONS Current Outpatient Medications Medication Sig Dispense Refill ??? acetaminophen (TYLENOL) 325 mg tablet Take 1-2 Tabs by mouth every 4 hours as needed for Pain. (Patient not taking: Reported on 06/28/2017) ??? Cholecalciferol, Vitamin D3, 50 mcg (2,000 unit) capsule Take 1 Tab by mouth daily. ??? dexmethylphenidate (FOCALIN) 10 mg tablet Take 10 mg by mouth 3 times daily. ??? GABAPENTIN (NEURONTIN ORAL) Take 1,200 mg by mouth daily. ??? glucagon (GLUCAGON EMERGENCY KIT, HUMAN,) 1 mg emergency injection kit Inject 1 mg into the muscle once as needed for up to 1 dose for Low Blood Sugar. (Patient not taking: Reported on 06/28/2017) 1 Kit 2 ??? ibuprofen (MOTRIN) 400 mg tablet Take 1 Tab by mouth every 4 hours as needed for Pain. (Patientnot taking: Reported on 06/28/2017) ??? JARDIANCE 25 mg tablet Take 25 mg by mouth daily. ??? labetalol (NORMODYNE) 200 mg tablet Take 1 Tab by mouth every 12 hours. (Patient not taking: Reported on 06/28/2017) 60 Tab 1 ??? lamoTRIgine (LAMICTAL) 200 mg tablet Take 200 mg by mouth daily. ??? lamoTRIgine (LAMICTAL) 25 mg tablet TAKE 2 TABLETS BY MOUTH AT BEDTIME WITH 200MG TABLET ??? lithium (LITHOBID) 300 mg CR tablet 450 in the morning, 300 at bedtime ??? metFORMIN (GLUCOPHAGE) 1,000 mg tablet Take 1 Tab by mouth 2 times daily with breakfast and dinner. (Patient not taking: Reported on 06/28/2017) 60 Tab 2 ??? mupirocin (BACTROBAN) 2 % ointment Topically as directed BID, two 22 gm tubes for 30 days (Patient not taking: Reported on 07/07/2019) 2 Tube 1 ??? ONETOUCH VERIO FLEX USE TO CHECK BLOOD GLUCOSE TWICE DAILY DX E11.9 ??? ONETOUCH VERIO test strips USE TO CHECK BLOOD GLUCOSE TWICE DAILY DX E11.9 ??? pioglitazone (ACTOS) 30 mg tablet Take 30 mg by mouth daily. ??? QUEtiapine (SEROQUEL) 100 mg tablet Take 100 mg by mouth at bedtime. ??? QUEtiapine (SEROQUEL) 300 mg tablet Take 300 mg by mouth at bedtime. ??? ranitidine (ZANTAC) 150 mg tablet Take 300 mg by mouth 2 times daily. ??? sitaGLIPtin (JANUVIA) 100 mg tablet Take 100 mg by mouth daily. ??? traMADol (ULTRAM) 50 mg tablet Take 50 mg by mouth every 6 hours ??? VICTOZA 3-STEPHANIE 0.6 mg/0.1 mL (18 mg/3 mL) injectable pen INJECT 0.6 MG SUBCUTANEOUSLY DAILY X 1 WEEK THEN 1.2 MG DAILY X 1 WEEK THEN 1.8 MG No current facility-administered medications for this visit. ALLERGIES No Known Allergies REVIEW OF SYSTEMS ROS VITALS Vitals: 07/07/19 1026 BP: 141/74 Pulse: 78 Weight: 91.6 kg (202 lb) Height: 152.4 cm (60) PHYSICAL EXAM Nursing note and vitals reviewed.Constitutional: She is oriented to person, place, and time. She appears well-developed and well-nourished. No distress. HENT: Head: Normocephalic and atraumatic. Mouth/Throat: Oropharynx is clear and moist. Eyes: Pupils are equal, round, and reactive to light. Conjunctivae and EOM are normal. Neck: Normal range of motion. Neck supple. No JVD present. No tracheal deviation present. No thyromegaly present. Cardiovascular: Normal rate, regular rhythm and normal heart sounds. Pulmonary/Chest: Effort normal and breath sounds normal. No stridor. No respiratory distress. She has no wheezes. She has no rales. She exhibits no tenderness. Abdominal: Soft. Bowel sounds are normal. She exhibits no distension. Musculoskeletal: Normal range of motion. She exhibits no edema, tenderness or deformity. Lymphadenopathy: She has no cervical adenopathy. Neurological: She is alert and oriented to person, place, and time. She displays normal reflexes. No cranial nerve deficit or sensory deficit. She exhibits normal muscle tone. Coordination normal. Skin: She is not diaphoretic. Psychiatric: She has a normal mood and affect. Her behavior is normal. Judgment and thought contentnormal. Feet: Walking barefoot feet were dirty on both soles. Strong distal pulses, some dryness and superficial calluses but skin is intact otherwise. ASSESSMENT 1. Uncontrolled type 2 diabetes mellitus with hyperglycemia ([facility]) LIPID PROFILE (INCLUDES CHOLESTEROL, TRIGLYCERIDES, HDL, LDL) ALBUMIN, URINE COMPREHENSIVE METABOLIC PANEL (CMP) FRUCTOSAMINE AMB CONS/FOLLOW UP ADULT PSYCHIATRY CLINIC 2. Hypercalcemia PTH INTACT VITAMIN D (25,[place]) PHOSPHORUS Unfortunately given her significant psych history, previous attempts to commit suicide with insulinI am not willing to prescribe insulin unless she was cleared by psychiatry. I am referring her to psychiatry for suicidal risk evaluation. I have asked the nurse to call her pharmacy and ask for a report, hopefully a written report of themedications that she has been prescribed, when she picked up said medications, who prescribed them and if she did so regularly. I would like to know if her A1c is poorly controlled due to lack of response to therapy or if this is because she has not been taking medications as prescribed. Unfortunately, she is already taking everything she could take for diabetes and the best next course of actionwill be to prescribe insulin. Today I am asking her to discontinue Jardiance due to her frequent yeast infections which can turn into very serious infections Unfortunately, even if that is the case, if she is at risk to commit suicide with insulin I cannot think of insulin as appropriate course of action - benefits would not outweigh the risks. One exception may be if insulin was administered under supervision but we understand how difficult this can be logistically since she would need to get an shot every 24 hours or at least every 36 hours if we used insulin degludec. I recommend to her PCP to coordinate home health services, [facility] would go to her house and would inject insulin daily or as frequently as we can do it. We could use longer acting insulins like Tresiba and injected every couple days. Patient had questions about insulin pumps, insulin patches. Insulin pump is not appropriate. Insulin patches may but it is worth noting that the patient said that she was actively suicidal just 2 months ago and she said she could accumulate her insulin patches and commit suicide that way. PLAN Primary care physician to coordinate home health services [facility] could administer Tresiba 20 units every 24-48 hours but ideally daily. Some insulin better thanno insulin but MUST be given under supervision. Continue all medication that she is taking except for Jardiance which should be discontinued Follow up to be determined I have called her PCPs office and recommended to prescribe insulin that must be shipped to their office to be administered under supervision Tio Ray MD 07/07/2019 11:08 Level 5 new patient visit patient with active suicidal ideation who needs insulin therapy to control diabetes, 60 minutes were spent in a inpp-oa-xior encounter, more than 50% time was counseling andextra time spent coordinating care. documented in this encounter Plan of Treatment Not on file documented as of this encounter Goals Goal Patient Goal Type Associated Problems Recent Progress Patient-Stated? Author HEMOGLOBIN A1C < 7.0 Result Component Type 2 diabetes mellitus ([facility]) 8.7(07/07/2015 5:05 EST) No Annmarie Vigil documented as of this encounter Results * ALBUMIN, URINE (07/07/2019 11:39 EDT) Albumin, Urine <0.6 See Note mg/dL 2019 15:16 EDT [facility] Comment: NOTE: Reference range not established Creatinine, Urine 30.4 See Note mg/dL 07/07/2019 15:16 EDT [facility] Comment: NOTE: Reference range not established Lab Urine Albumin to Creatinine Ratio <20 <30 ug/mg Creatinine 07/07/2019 15:16 EDT [facility] Comment: Urine Albumin/Creatinine Ratio: Normal: <30 ug/mg Creatinine Moderately increased albuminuria: 30-30 ug/mg Creatinine Severley increased albuminuria: >300 ug/mg Creatinine Urine URINE SPECIMEN OBTAINED BY CLEAN CATCH PROCEDURE / Unknown Urine Collect / Unknown 07/07/2019 11:39 EDT 07/07/2019 11:40 EDT Tio Ray MD CHEMISTRY & BLOOD GAS ORDERABLES [facility] [address] [place] [address] * PHOSPHORUS (07/07/2019 11:37 EDT) Pathologist [facility] Phosphorus 4.1 2.5 - 4.5 mg/dL 07/07/2019 14:59 EDT [facility] Blood VENOUS BLOOD / Unknown Venipuncture / Unknown 07/07/2019 11:37 EDT 07/07/2019 11:40 EDT Tio Ray MD CHEMISTRY & BLOOD GAS ORDERABLES Performing Organization Address City/State/[facility] Co de Phone Number [facility] [address] [place] [address] * (ABNORMAL) VITAMIN D (25,[place]) (07/07/2019 11:37 EDT) Pathologist [facility] 25OH Vitamin D Tot 29.0(L) 30.0 - 100.0 ng/mL 07/08/2019 10:49 EDT [facility] Comment: Vitamin D 25,[place] Interpretive Ranges: Deficiency: ??<10.0 ng/mL Insufficiency: ??10.0 - 30.0 ng/mL Sufficiency: ??30.0 - 100.0 ng/mL Toxicity: ??>100.0 ng/mL Blood VENOUS BLOOD / Unknown Venipuncture / Unknown 07/07/2019 11:37 EDT 07/07/2019 11:40 EDT Tio Ray MD CHEMISTRY & BLOOD GAS ORDERABLES Performing Organization Address City/[facility]/ZIP Co de Phone Number [facility] [address] [place] [address] * PTH INTACT (07/07/2019 11:37 EDT) Pathologist [facility] Intact PTH 27 19 - 88 pg/mL 07/08/2019 11:42 EDT [facility] Blood VENOUS BLOOD / Unknown Venipuncture / Unknown 07/07/2019 11:37 EDT 07/07/2019 11:40 EDT Tio Ray MD CHEMISTRY & BLOOD GAS ORDERABLES [facility] [address] [place] [address] * (ABNORMAL) FRUCTOSAMINE (07/07/2019 11:37 EDT) Fructosamine, S 425(H) 200 - 285 mcmol/L 07/08/2019 13:32 EDT [facility] Comment: Test Performed by: [facility] - [address] [address] Technical Intern: Lloyd Barker M.D. Ph.D.; CLIA# [id number] Blood VENOUS BLOOD / Unknown Venipuncture / Unknown 07/07/2019 11:37 EDT 07/07/2019 11:40 EDT Tio Ray MD CHEMISTRY & BLOOD GAS ORDERABLES Performing Organization Address City/[facility]/ZIP Co de Phone Number [facility] [address] [place] [phone] * (ABNORMAL) COMPREHENSIVE METABOLIC PANEL (CMP) (07/07/2019 11:37 EDT) Sodium 135(L) 136 - 145 mEq/L 07/07/2019 14:59 EDT [facility] Potassium 4.2 3.5 - 5.0 mEq/L 07/07/2019 14:59 EDT [facility] Chloride 101 96 - 110 mEq/L 07/07/2019 14:59 EDT [facility] CO2 Total 19(L) 22 - 32 mEq/L 07/07/2019 14:59 EDT [facility] Glucose 281(H) 70 - 100 mg/dL 07/07/2019 14:59 EDT [facility] BUN 8(L) 10 - 26 mg/dL 07/07/2019 14:59 EDT [facility] Creatinine 0.69 0.52 - 1.04 mg/dL 07/07/2019 14:59 EDT [facility] eGFR 108 >60 mL/min/1.7 3m2 07/07/2019 14:59 EDT [facility] Comment:eGFR calculated sondra banks CKD-EPI equation for non- Americans. Multiply eGFR by 1.16 for patients. Total Protein 7.9 6.3 - 8.2 g/dL 07/07/2019 14:59 EDT [facility] Albumin 5.0(H) 3.4 - 4.9 g/dL 07/07/2019 14:59 T [facility] Alkaline Phosphatase 115 38 - 126 U/L 07/07/2019 14:59 EDT [facility] AST 89(H) 15 - 46 U/L 07/07/2019 14:59 [facility] ALT 68(H) <35 U/L 07/07/2019 14:59 [facility] Bilirubin, Total 0.9 <1.4 mg/dL 07/07/19 20 14:59 [facility] Calcium 10.4 8.5 - 10.5 mg/dL 07/07/2019 14:59 T [facility] Calculated Calcium 9.6 8.5 - 10.5 mg/dL 07/07/2019 14:59 [facility] Blood VENOUS BLOOD / Unknown Venipuncture / Unknown 07/07/2019 11:37 EDT 07/07/2019 11:40 EDT Narrative [facility] - 07/07/2019 14:59 EDT 1 Tio Ray MD CHEMISTRY & BLOOD GAS ORDERABLES Performing Organization Address City/State/[facility] Co de Phone Number [facility] [address] [place] [address] * LIPID PROFILE (INCLUDES CHOLESTEROL, TRIGLYCERIDES, HDL, LDL) (07/07/2019 11:37 EDT) Cholesterol 301 See Note mg/dL 07/07/2019 16:22 EDT [facility] Comment: Acceptable: ?<200 mg/dL Borderline High: 200-239 mg/dL High: ?> or = 240 mg/dL HDL 56 See Note mg/dL 07/07/2019 16:22 [facility] Comment: Low: ? <40 mg/dL Normal: ??40-60 mg/dL High: ?>60 mg/dL LDL, Calculated 0 16:22 [facility] Comment: Optimal: ? <100 mg/dL Near Optimal: ?100-129 mg/dL Borderline High: 130-159 mg/dL High: ?160-189 mg/dL Very High: ? > or = 190 mg/dL Calculated LDL invalid, triglycerides >400 mg/dL Direct LDL measurement added by reflex. Triglyceride 742 See Note mg/dL 07/07/2019 16:22 [facility] Comment: Normal: ? <150 mg/dL Borderline High: ??150 - 199 mg/dL High: ? 200 - 499 mg/dL Very High: ?> or = 500 mg/dL Chol/HDL Ratio 5.4 See Note 07/07/2019 16:22 [facility] Comment: No reference range has been established for CHOL/HDL ratio. Non HDL Cholesterol 245 See Note mg/dL 07/07/2019 16:22 [facility] Comment: Desirable: ?<130 mg/dL Borderline High: ??130-159 mg/dL High: ? 160-189 mg/dL Very High: ?> or = 190 mg/dL Blood VENOUS BLOOD / Unknown Venipuncture / Unknown 07/07/2019 11:37 EDT 07/07/2019 11:40 EDT Narrative [facility] - 07/07/2019 16:22 EDT 1 Tio Ray MD CHEMISTRY & BLOOD GAS ORDERABLES [facility] [address] [place] [address] documented in this encounter Visit Diagnoses Diagnosis Uncontrolled type 2 diabetes mellitus with hyperglycemia ([facility])- Primary Hypercalcemia History of suicidal ideation Personal history of other mental disorder History of suicide attempt Personal history of other mental disorder documented in this encounter Discontinued Medications Medication Sig Discontinue Reason Start Date End Da te ARIPIPRAZOLE (ABILIFY ORAL) Take by mouth. Discontinued by another clinician 07/07/2019 documented as of this encounter Historical Medications * This list may reflect changes made after this encounter. Medication Sig Dispensed Refills Start Date End Date ONETOUCH VERIO test strips USE TO CHECK BLOOD GLUCOSE TWICE DAILY DX E11.9 06/25/2019 ONETOUCH VERIO FLEX USE TO CHECK BLOOD GLUCOSE TWICE DAILY DX E11.9 06/25/2019 Cholecalciferol, Vitamin D3, 50 mcg (2,000 unit) capsule Take 1 Tab by mouth daily. 04/07/2019 JARDIANCE 25 mg tablet Take 25 mg by mouth daily. 06/12/2019 lamoTRIgine (LAMICTAL) 200 mg tablet Take 1 Tablet by mouth daily. 06/02/2019 lamoTRIgine (LAMICTAL) 25 mg tablet TAKE 2 TABLETS BY MOUTH AT BEDTIME WITH 200MG TABLET 06/03/2019 VICTOZA 3-STEPHANIE 0.6 mg/0.1 mL (18 mg/3 mL) injectable pen INJECT 0.6 MG SUBCUTANEOUSLY DAILY X 1 WEEK THEN 1.2 MG DAILY X 1 WEEK THEN 1.8 MG 05/03/2019 lithium (LITHOBID) 300 mg CR tablet 450 in the morning, 300 at bedtime 05/05/2019 QUEtiapine (SEROQUEL) 300 mg tablet Take 300 mg by mouth at bedtime. 06/03/2019 09/09/2019 QUEtiapine (SEROQUEL) 100 mg tablet Take 100 mg by mouth at bedtime. 05/22/2019 09/09/2019 added in this encounter Additional Health Concerns Infection Onset Date Last Indicated Resolved Time MRSA Comment:IP note: risk factors - DM, obesity Pos sinus 06/30/17 M Chito 07/01/17 07/01/2017 07/01/2017 documented as of this encounter Care Teams Nuclear Technician Relationship Specialty Start Date End Date Jossie Patton APRN [address] [place] [phone] PCP - General 07/07/19 11/10/23 documented as of this encounter
--- OUTSIDE RECORDS SUMMARY | 2024-02-14 15:19 | XMS_ITS | Encounter Summary ---
Author Organization [facility] Address [address] [place] [address] Care Team Providers Care Crab Catcher Name Role Phone Annette Sidhu APRN Primary Care Provider + [phone] Jossie Patton APRN Primary Care Provider + [phone] Stephanie Santos MD Primary Care Provider [phone] Encounter Details Date Type Department Care Team (Late st Contact Info) Description 06/23/2019 Lab Requisition [facility] Pathology & Laboratory Medicine - [address] [address] Unknown, Provider, Social History Tobacco Use Types Packs/Day Years [...] 2 diabetes mellitus ([facility]) 8.7(07/07/2015 5:05 EST) No Musa Annmarie documented as of this encounter Procedures Procedure Name Priority Date/Time Associated Diagnosis Comments HEPATITIS C AB W REFLEX TO HCV RNA BY PCR Routine 06/22/2019 14:15 EST documented in this encounter Results * HEPATITIS C AB W REFLEX TO HCV RNA BY PCR (06/22/2019 14:15 EST) Hep C Antibody Negative Negative 06/24/2019 11:48 EST [facility] Blood VENOUS BLOOD / Unknown 06/22/2019 14:15 EST 06/23/2019 16:45 EST Provider Unknown CHEMISTRY & BLOOD GA S ORDERABLES [facility] [address] [place] [address] documented in this encounter Visit Diagnoses Not on filedocumented in this encounter Additional Health Concerns Infection Onset Date Last Indicated Resolved Time MRSA Comment:IP note: risk factors - DM, obesity Pos sinus 06/30/17 M Chito 07/01/17 07/01/2017 07/01/2017 documented as of this encounter Care Teams Crab Catcher Relationship Specialty Start Date End Date Annette Sidhu APRN [address] [place] [phone] PCP - General 03/19/13 07/06/19 Jossie Patton APRN [address] [place] [phone] PCP - General 07/07/19 11/10/23 Stephanie Santos MD [address] [place] [address] PCP - General Family Medicine - Primary Care 11/11/23 documented as of this encounter
--- OUTSIDE RECORDS SUMMARY | 2024-02-14 15:19 | XMS_ITS | Encounter Summary ---
Author Organization [facility] Address [address] [place] [address] Care Team Providers Care Plywood Layup Line Core Layer Name Role Phone Jossie Patton APRN Primary Care Provider [phone] Stephanie Santos MD Primary Care Provider [phone] Encounter Details Date Type Department Care Team (Late st Contact Info) Description 07/30/2020 Lab Requisition [facility] Pathology & Laboratory Medicine - [address] [address] Outr Resulting Lab, Provider Social History Tobacco [...] Result Component Type 2 diabetes mellitus ([facility]) 8.7(07/07/2015 5:05 EST) No Annmarie Vigil documented as of this encounter Procedures Procedure Name Priority Date/Time Associated Diagnosis Comments VITAMIN D (25,OH) Routine 07/30/2020 8:45 EDT documented in this encounter Results * VITAMIN D (25,OH) (07/30/2020 8:45 EDT) 25OH Vitamin D Tot 39.8 30.0 - 100.0 ng/mL 08/01/2020 11:55 EDT [facility] Comment: Vitamin D 25,OH Interpretive Ranges: Deficiency: ??<10.0 ng/mL Insufficiency: ??10.0 - 30.0 ng/mL Sufficiency: ??30.0 - 100.0 ng/mL Toxicity: ??>100.0 ng/mL Blood VENOUS BLOOD / Unknown 07/30/2020 8:45 EDT 07/31/2020 16:22 EDT Provider Outr Resulting Lab CHEMISTRY & BLOOD GAS ORDERABLES [facility] [address] [place] [address] documented in this encounter Visit Diagnoses Not on filedocumented in this encounter Additional Health Concerns Infection Onset Date Last Indicated Resolved Time MRSA Comment:IP note: risk factors - DM, obesity Pos sinus 06/30/17 M Chito 07/01/17 07/01/2017 07/01/2017 documented as of this encounter Care Teams Plywood Layup Line Core Layer Relationship Specialty Start Date End Date Jossie Patton APRN [address] [place] [phone] PCP - General 07/07/19 11/10/23 Stephanie Santos MD [address] [place], [place] [address] PCP - General Family Medicine - Primary Care 11/11/23 documented as of this encounter
--- OUTSIDE RECORDS SUMMARY | 2024-02-14 15:19 | XMS_ITS | Encounter Summary ---
Author Organization [facility] Address [address] [place] [address] Care Team Providers Care Director Of Leadership Development Name Role Phone Jossie Patton APRN Primary Care Provider [phone] Stephanie Santos MD Primary Care Provider [phone] Encounter Details Date Type Department Care Team (Late st Contact Info) Description 08/24/2023 Lab Requisition [facility] Pathology & Laboratory Medicine - [address] [address] Outr Resulting Lab, Provider Social History Tobacco [...] diabetes mellitus ([facility]) 8.7(07/07/2015 5:05 EST) No Annmarie Vigil documented as of this encounter Procedures Procedure Name Priority Date/Time Associated Diagnosis Comments HEPATITIS C AB W REFLEX TO HCV RNA BY PCR Routine 08/24/2023 7:46 EDT documented in this encounter Results * HEPATITIS C AB W REFLEX TO HCV RNA BY PCR (08/24/2023 7:46 EDT) Hep C Antibody Negative Negative 08/26/2023 9:48 EDT [facility] Blood VENOUS BLOOD / Unknown 08/24/2023 7:46 EDT 08/24/2023 21:24 EDT Provider Outr Resulting Lab CHEMISTRY & BLOOD GAS ORDERABLES [facility] [address] [place] [address] documented in this encounter Visit Diagnoses Not on filedocumented in this encounter Additional Health Concerns Infection Onset Date Last Indicated Resolved Time MRSA Comment:IP note: risk factors - DM, obesity Pos sinus 06/30/17 M Chito 07/01/17 07/01/2017 07/01/2017 documented as of this encounter Care Teams Director Of Leadership Development Relationship Specialty Start Date End Date Jossie Patton APRN [address] [place] [phone] PCP - General 07/07/19 11/10/23 Stephanie Santos MD [address] [place] [address] PCP - General Family Medicine - Primary Care 11/11/23 documented as of this encounter
--- OUTSIDE RECORDS SUMMARY | 2024-02-14 15:19 | XMS_ITS | Encounter Summary ---
Author Organization [facility] Address [address] [place] [address] Care Team Providers Care Manager Android Name Role Phone Jossie Patton APRN Primary Care Provider [phone] Stephanie Santos MD Primary Care Provider [phone] Encounter Details Date Type Department Care Team (Late st Contact Info) Description 08/24/2023 Lab Requisition [facility] Pathology & Laboratory Medicine - [address] [address] Outr Resulting Lab, Provider Social History Tobacco [...] Name Priority Date/Time Associated Diagnosis Comments HEPATITIS B CORE ANTIBODY (TOTAL) Routine 08/24/2023 7:46 EDT documented in this encounter Results * HEPATITIS B CORE ANTIBODY (TOTAL) (08/24/2023 7:46 EDT) Hepatitis B Core Ab, Total Negative Negative 08/26/2023 9:40 EDT [facility] Blood VENOUS BLOOD / Unknown 08/24/2023 7:46 EDT 08/24/2023 21:24 EDT Provider Outr Resulting Lab CHEMISTRY & BLOOD GAS ORDERABLES [facility] [address] [place] [address] documented in this encounter Visit Diagnoses Not on filedocumented in this encounter Additional Health Concerns Infection Onset Date Last Indicated Resolved Time MRSA Comment:IP note: risk factors - DM, obesity Pos sinus 06/30/17 M Chito 07/01/17 07/01/2017 07/01/2017 documented as of this encounter Care Teams Manager Android Relationship Specialty Start Date End Date Jossie Patton APRN [address] [place] [phone] PCP - General 07/07/19 11/10/23 Stephanie Santos MD [address] [place] [address] PCP - General Family Medicine - Primary Care 11/11/23 documented as of this encounter
--- OUTSIDE RECORDS SUMMARY | 2024-02-14 15:19 | XMS_ITS | Encounter Summary ---
Author Organization [facility] Address [address] [place] [address] Care Team Providers Care Resource Program Teacher Name Role Phone Jossie Patton APRN Primary Care Provider [phone] Stephanie Santos MD Primary Care Provider [phone] Encounter Details Date Type Department Care Team (Late st Contact Info) Description 10/18/[address] [facility] Pathology & Laboratory Medicine - [address] [address] Outr Resulting Lab, Provider Social History Tobacco [...] Component Type 2 diabetes mellitus ([facility]) 8.7(07/07/2015 5:05 EST) No Annmarie Vigil documented as of this encounter Procedures Procedure Name Priority Date/Time Associated Diagnosis Comments CHLAMYDIA/N. GONORRHOEAE AMPLIFIED NUCLEIC ACID Routine 10/18/2022 14:40 EDT documented in this encounter Results * CHLAMYDIA/N. GONORRHOEAE AMPLIFIED RNA (10/18/2022 14:40 EDT) Neisseria gonorrhoeae Result Negative Negative 10/20/2022 13:09 EDT [facility] Chlamydia trachomatis Result Negative Negative 10/20/2022 13:09 EDT [facility] Urine URINE / Unknown 10/18/2022 1 4:40 EDT 10/19/2022 19:35 EDT Narrative [facility] - 10/20/2022 13:09 EDT A first catch urine specimen is acceptable for detection of Gonorrhea and Chlamydia, but might detect up to 10% fewer infections when compared with vaginal and endocervical swab samples. Provider Outr Resulting Lab MICROBIOLOGY - GENERAL ORDERABLES [facility] [address] [place] [address] documented in this encounter Visit Diagnoses Not on filedocumented in this encounter Additional Health Concerns Infection Onset Date Last Indicated Resolved Time MRSA Comment:IP note: risk factors - DM, obesity Pos sinus 06/30/17 M Chito 07/01/17 07/01/2017 07/01/2017 documented as of this encounter Care Teams Resource Program Teacher Relationship Specialty Start Date End Date Jossie Patton APRN [address] [place] [address] PCP - General 07/07/19 11/10/23 Stephanie Santos MD [address] [place] [address] PCP - General Family Medicine - Primary Care 11/11/23 documented as of this encounter
--- OUTSIDE RECORDS SUMMARY | 2024-02-14 15:19 | XMS_ITS | Encounter Summary ---
Author Organization [facility] Address [address] [place] [address] Care Team Providers Care Production Supervisor Trainee Name Role Phone Jossie Patton RADHA Primary Care Provider Encounter Details Date Type Department Care Team (Latest Contact Info) Description 10/21/2020 Travel Social History Tobacco Use Types Packs/Day [...] Result Component Type 2 diabetes mellitus ([facility]) 8.7(07/07/2015 5:05 EST) No Annmarie Vigil documented as of this encounter Visit Diagnoses Not on filedocumented in this encounter Additional Health Concerns Infection Onset Date Last Indicated Resolved Time MRSA Comment:IP note: risk factors - DM, obesity Pos sinus 06/30/17 M Chito 07/01/17 07/01/2017 07/01/2017 documented as of this encounter Care Teams Production Supervisor Trainee Relationship Specialty Start Date End Date Jossie Patton APRN [address] [place] [phone] PCP - General 07/07/19 11/10/23 documented as of this encounter
--- OUTSIDE RECORDS SUMMARY | 2024-02-14 15:19 | XMS_ITS | Encounter Summary ---
Author Organization [facility] Address [address] [place] [address] Care Team Providers Care Diet Supervisor Name Role Phone Jossie Patton APRN Primary Care Provider [phone] Stephanie Santos MD Primary Care Provider [phone] Encounter Details Date Type Department Care Team (Late st Contact Info) Description 03/09/2023 Lab Requisition [facility] Pathology & Laboratory Medicine - [address] [address] Outr Resulting Lab, Provider Social History Tobacco [...] Type 2 diabetes mellitus ([facility]) 8.7(07/07/2015 5:05 EST) No Annmarie Vigil documented as of this encounter Procedures Procedure Name Priority Date/Time Associated Diagnosis Comments SYPHILIS SEROLOGY Routine 03/08/2023 15: 45 EST documented in this encounter Results * SYPHILIS SEROLOGY (03/08/2023 15:45 EST) Syphilis Serology Negative Negative 03/11/2023 12:12 EST [facility] Blood VENOUS BLOOD / Unknown 03/08/2023 15:45 EST 03/09/2023 21:19 EST Provider Outr Resulting Lab IMMUNOLOGY A ND SEROLOGY ORDERABLES Performing Organization Address City/State/[facility] Co de Phone Number [facility] [address] [place] [address] documented in this encounter Visit Diagnoses Not on filedocumented in this encounter Additional Health Concerns Infection Onset Date Last Indicated Resolved Time MRSA Comment:IP note: risk factors - DM, obesity Pos sinus 06/30/17 M Chito 07/01/17 07/01/2017 07/01/2017 documented as of this encounter Care Teams Diet Supervisor Relationship Specialty Start Date End Date Jossie Patton APRN [address] [place] [phone] PCP - General 07/07/19 11/10/23 Stephanie Santos MD [address], [place] [phone] PCP - General Family Medicine - Primary Care 11/11/23 documented as of this encounter
--- OUTSIDE RECORDS SUMMARY | 2024-02-14 15:20 | XMS_ITS | Encounter Summary ---
Author Organization [facility] Address [address] [place] [address] Care Team Providers Care Social Science Instructor Name Role Phone Annette Sidhu APRN Primary Care Provider [phone] Jossie Patton APRN Primary Care Provider [phone] Stephanie Santos MD Primary Care Provider [phone] Reason for Visit * Reason Comments Other Encounter Details Date Type Department Care Team (Late st Contact Info) Description 02/20/2015 Refill [facility] OBGYN Services - [address] [phone] Khalida Quiñones MD Other Social History Tobacco Use Types Packs/Day [...] a physical, menta l, or emotional condition, do you have difficulty doing errands alone such as visiting a doctor's office or shopping? (15 years old or older) No 05/12/2014 Cognitive Status Response Date of Assessm ent Because of a physical, menta l, or emotional condition, do you have serious difficulty concentrating, remembering, or making decisions? (5 years old or older) Yes 05/12/2014 documented as of this encounter Plan of Treatment Not on file documented as of this encounter Goals Goal Patient Goal Type Associated Problems Recent Progress Patient-Stated? Author HEMOGLOBIN A1C < 7.0 Result Component Type 2 diabetes mellitus ([facility]) 8.7(07/07/2015 5:05 EST) No Annmarie Vigil documented as of this encounter Visit Diagnoses Not on filedocumented in this encounter Additional Health Concerns Infection Onset Date Last Indicated Resolved Time MRSA Comment:IP note: risk factors - DM, obesity Pos sinus 06/30/17 M Hcito 07/01/17 07/01/2017 07/01/2017 documented as of this encounter Care Teams Social Science Instructor Relationship Specialty Start Date End Date Annette Sidhu APRN [address] [place] [phone] PCP - General 03/19/13 07/06/19 Jossie Patton APRN [address] [place] [phone] PCP - General 07/07/19 11/10/23 Stephanie Santos MD [address] [place] [address] PCP - General Family Medicine - Primary Care 11/11/23 documented as of this encounter
--- OUTSIDE RECORDS SUMMARY | 2024-02-14 15:20 | XMS_ITS | Encounter Summary ---
Author Organization [facility] Address [address] [place] [address] Care Team Providers Care Public Health Nutritionist Name Role Phone Annette Sidhu APRN Primary Care Provider [phone] Reason for Visit * Reason Onset Date Comments Home Health 06/01/2014 Encounter Details Date Type Department Care Team (Late st Contact Info) Description 06/01/2014 Telephone [facility] Obstetrics & Midwifery - [address] [address] Cary Christensen, PRISCILA Home Health Social History Tobacco Use Types Packs/Day Years [...] Yes 05/12/2014 documented as of this encounter Miscellaneous Notes * Telephone Encounter - Cary Christensen RN - 06/01/2014 1834 EST Call to willie Thomas RN with [facility] to set up daily dressing changes with dryguaze. Martha will contact patient and set up visits. Patient to return to [facility] office next week for evaluation. documented in this encounter Plan of Treatment Not on file documented as of this encounter Goals Goal Patient Goal Type Associated Problems Recent Progress Patient-Stated? Author HEMOGLOBIN A1C < 7.0 Result Component Type 2 diabetes mellitus ([facility]) 8.7(07/07/2015 5:05 EST) No Annmarie Vigil documented as of this encounter Visit Diagnoses Not on filedocumented in this encounter Care Teams Public Health Nutritionist Relationship Specialty Start Date End Date Annette Sidhu APRN [address] [place] [phone] PCP - General 03/19/13 07/06/19 documented as of this encounter
--- OUTSIDE RECORDS SUMMARY | 2024-02-14 15:20 | XMS_ITS | Encounter Summary ---
Author Organization [facility] Address [address] [place] [address] Care Team Providers Care Professor Of English Name Role Phone Annette Sidhu APRN Primary Care Provider [phone] Reason for Visit * Reason Onset Date Comments Wound Care 06/21/2014 Encounter Details Date Type Department Care Team (Late st Contact Info) Description 06/21/2014 Telephone [facility] Obstetrics & Midwifery - [address] [address] Michelle Devine building rigger Social History Tobacco Use Types Packs/Day Years [...] encounter Miscellaneous Notes * Telephone Encounter - Michelle Devine RN - 06/21/2014 5992 EST Phone call from Jossie FRANCOIS at [facility], she was there for wound care, wound now 1cm slit. She anticipates that at her Saturday visit she will no longer need home visits for wound care and left the intake phone number if so to discontinue orders ([phone]). documented in this encounter Plan of Treatment Not on file documented as of this encounter Goals Goal Patient Goal Type Associated Problems Recent Progress Patient-Stated? Author HEMOGLOBIN A1C < 7.0 Result Component Type 2 diabetes mellitus ([facility]) 8.7(07/07/2015 5:05 EST) No Annmarie Vigil documented as of this encounter Visit Diagnoses Not on filedocumented in this encounter Care Teams Professor Of English Relationship Specialty Start Date End Date Annette Sidhu APRN [address] [place] [phone] PCP - General 03/19/13 07/06/19 documented as of this encounter
--- OUTSIDE RECORDS SUMMARY | 2024-02-14 15:20 | XMS_ITS | Encounter Summary ---
Author Organization [facility] Address [address] [place] [address] Care Team Providers Care Painter Name Role Phone Annette Sidhu APRN Primary Care Provider Encounter Details Date Type Department Care Team (Late st Contact Info) Description 07/30/2017 Results Only Imaging [facility] [phone] Unknown, Provider, Social History Tobacco Use Types [...] as of this encounter Plan of Treatment Pending Results Name Type Priority Associated Diagnoses Date /Time OUTSIDE IMAGES - CT NEURO Imaging 07/30/2017 8:36 EDT documented as of this encounter Goals Goal Patient Goal Type Associated Problems Recent Progress Patient-Stated? Author HEMOGLOBIN A1C < 7.0 Result Component Type 2 diabetes mellitus ([facility]) 8.7(07/07/2015 5:05 EST) No Annmarie Vigil documented as of this encounter Visit Diagnoses Not on filedocumented in this encounter Additional Health Concerns Infection Onset Date Last Indicated Resolved Time MRSA Comment:IP note: risk factors - DM, obesity Pos sinus 06/30/17 M Chito 07/01/17 07/01/2017 07/01/2017 documented as of this encounter Care Teams Painter Relationship Specialty Start Date End Date Annette Sidhu, DAIRY STORE MANAGER [address] [place] [phone] PCP - General 03/19/13 07/06/19 documented as of this encounter
--- OUTSIDE RECORDS SUMMARY | 2024-02-14 15:20 | XMS_ITS | Encounter Summary ---
Author Organization [facility] Address [address] [place] [address] Care Team Providers Care Windows Security Engineer Name Role Phone Annette Sidhu APRN Primary Care Provider [phone] Jossie Patton APRN Primary Care Provider [phone] Stephanie Santos MD Primary Care Provider [phone] Reason for Visit * Reason Comments Other Encounter Details Date Type Department Care Team (Late st Contact Info) Description 04/18/2015 Refill [facility] OBGYN Services - [address] [address] Eduardo Friend MD [address] [place] [address] [place] [phone] Other Social History Tobacco Use Types Packs/Day [...] Component Type 2 diabetes mellitus ([facility]) 8.7(07/07/2015 5:05 EST) No Annmarie Vigil documented as of this encounter Visit Diagnoses Not on filedocumented in this encounter Additional Health Concerns Infection Onset Date Last Indicated Resolved Time MRSA Comment:IP note: risk factors - DM, obesity Pos sinus 06/30/17 M Chito 07/01/17 07/01/2017 07/01/2017 documented as of this encounter Care Teams Windows Security Engineer Relationship Specialty Start Date End Date Annette Sidhu APRN [address] [place] [phone] PCP - General 03/19/13 07/06/19 Jossie Patton APRN [address] [place] [phone] PCP - General 07/07/19 11/10/23 Stephanie Santos MD [address] [place], [place] [address] PCP - General Family Medicine - Primary Care 11/11/23 documented as of this encounter
--- OUTSIDE RECORDS SUMMARY | 2024-02-14 15:20 | XMS_ITS | Encounter Summary ---
Author Organization [facility] Address [address] [place] [address] Care Team Providers Care Metrology Technician Name Role Phone Annette Sidhu APRN Primary Care Provider [phone] Encounter Details Date Type Department Care Team (Latest Contact Info) Description 07/07/2015 21:07 EST - 07/07/2015 21:08 [facility] Hospital Encounter [facility] [place] [address] [place] [address] Annette Sidhu APRN [address] [place] [phone] Discharge Disposition: Home or Self Care [...] Yes 05/12/2014 documented as of this encounter Discharge Diagnoses Diagnosis E11.65 Type 2 diabetes mellitus with hyperglycemia-E11.65[ICD-10-CM] R53.83 Other fatigue-R53.83[ICD-10-CM] documented in this encounter Medications at Time [...] breakfast and dinner. 60 Tab 2 05/16/2014 ranitidine (ZANTAC) 150 mg tablet Take 300 mg by mouth 2 times daily. traMADol (ULTRAM) 50 mg tablet Take 50 mg by mouth every 6 hours acetaminophen (TYLENOL) 325 mg tablet Take 1-2 Tabs by mouth every 4 hours as needed for Pain. 05/16/2014 10/21/2020 baclofen (LIORESAL) 10 mg tablet Take 10 mg by mouth 3 times daily 11/14/2015 cephALEXin (KEFLEX) 500 mg capsule Take 500 mg by mouth 4 times daily 11/14/2015 cyclobenzaprine (FLEXERIL) 10 mg tablet Take 10 mg by mouth 2 times daily. 06/28/2017 dexmethylphenidate (FOCALIN) 10 mg tablet Take 10 mg by mouth 3 times daily. 10/21/2020 glucagon (GLUCAGON EMERGENCY KIT, HUMAN,) 1 mg emergency injection kit Inject 1 mg into the muscle once as needed for up to 1 dose for Low Blood Sugar. 1 Kit 2 05/08/2014 10/21/2020 glyBURIDE (DIABETA) 5 mg tablet Take 1 Tab by mouth daily. 30 Tab 1 05/16/2014 11/14/2015 HYDROcodone-acetaminoph en (LORTAB) 5-500 mg tablet Take 1 Tab by mouth every 6 hours as needed for Pain 11/14/2015 multivitamin vit-iron fumarate-FA (STUARTNATAL) 27 mg iron- 1 mg tablet tablet Take 1 Tab by mouth daily. 90 Tab 2 12/31/2013 11/14/2015 QUEtiapine (SEROQUEL) 200 mg tablet Take 200 mg by mouth 2 times daily. Reported on 04/30/2016 04/30/2016 documented as of this encounter Discharge Disposition Disposition Code Departure Means Destination Home or Self Care documented in this encounter Plan of Treatment Not on file documented as of this encounter Goals Goal Patient Goal Type Associated Problems Recent Progress Patient-Stated? Author HEMOGLOBIN A1C < 7.0 Result Component Type 2 diabetes mellitus ([facility]) 8.7(07/07/2015 5:05 EST) Annmarie Lopez documented as of this encounter Visit Diagnoses Not on filedocumented in this encounter Care Teams Metrology Technician Relationship Specialty Start Date End Date Annette Sidhu APRN [address] [place] [phone] PCP - General 03/19/13 07/06/19 documented as of this encounter
--- OUTSIDE RECORDS SUMMARY | 2024-02-14 15:20 | XMS_ITS | Encounter Summary ---
Author Organization [facility] Address [address] [place] [address] Care Team Providers Care Supervisor Plate Pasting Name Role Phone Annette Sidhu APRN Primary Care Provider Reason for Referral * Consult (Routine) - Closed Specialty Diagnoses / Procedures Referred By Contac t Referred To Contact Chiropractic Medicine Diagnoses Bilateral low back pain, with sciatica presence unspecified Chronic left SI joint pain Barbara Iglesias PA-C [address] [place] [phone] Referral ID Status Reason Start Date Expiration Date V isits Requested Visits Authorized [id number] Closed Specialty Services Required 03/17/2015 1 1 Question Answer Reason for Request: Chronic low back pain Comments Consistent with SI joint irritation. Physical exam shows positive Vicenta's. Care to focus on pain management modalities. * Consult (Routine) - Closed Specialty Diagnoses / Procedures Referred By Contac t Referred To Contact Pain Medicine Diagnoses Bilateral low back pain, with sciatica presence unspecified Chronic left SI joint pain Barbara Iglesias PA-C [address] [place] [address] [facility] [address] [facility] [place] [address] Referral ID Status Reason Start Date Expiration Date V isits Requested Visits Authorized [id number] Closed Specialty Services Required 03/17/2015 1 0 Question Answer Reason for Request: Trial RFA lateral branches S1-S3 and dorsal ramus of L5 Comments Chronic left-sided SI joint pain with positive fabers on physical exam. Unable to tolerate steroids due to diabetes, locations. Trial RFA for therapeutic effect * Radiology Services (Routine) - Closed Specialty Diagnoses / Procedures Referred By Contac t Referred To Contact Diagnoses Bilateral low back pain, with sciatica presence unspecified Chronic left SI joint pain Procedures SACRUM COCCYX 2 OR MORE VIEWS Barbara Iglesias PA-C [address] [place] [phone] Referral ID Status Reason Start Date Expiration Date Visits Re quested Visits Authorized [id number] Closed 03/17/2015 1 1 * Radiology Services (Routine) - Closed Specialty Diagnoses / Procedures Referred By Contac t Referred To Contact Diagnoses Bilateral low back pain, with sciatica presence unspecified Procedures L SPINE 4 OR MORE VIEWS Barbara Iglesias PA-C [address] [place] [phone] Referral ID Status Reason Start Date Expiration Date Visits Re quested Visits Authorized [id number] Closed 03/17/2015 1 1 Reason for Visit * Reason Comments Back Pain Encounter Details Date Type Department Care Team (Late st Contact Info) Description 03/17/2015 9:45 EST Office Visit [facility] - [address] [address] Barbara Iglesias PA-C [address] [place] [phone] Bilateral low back pain, with sciatica presence unspecified (Primary Dx); Chronic left SI joint pain Discharge Disposition: Auto Discharge Social History Tobacco Use Types Packs/Day Years [...] - Inhaled Oxygen Concentration - - Weight 81.6 kg (180 lb) 03/17/2015 0951 EST Height 152.4 cm (5') 03/17/2015 0951 EST Body Mass Index 35.15 03/17/2015 0951 EST documented in this encounter Functional Status Functional [...] as of this encounter Discharge Diagnoses Diagnosis M54.5 Low back pain-M54.5[ICD-10-CM] M53.3 Sacrococcygeal disorders, not elsewhere classified-M53.3[ICD-10-CM] documented in this encounter Discharge Disposition Disposition Code Departure Means Destination Auto Discharge documented in this encounter Progress Notes * Barbara Iglesias - 03/17/2015 1038 EST Guzman Jean is being seen as a consultation from Dr. Pappas. Chief Complaint Patient presents with ??? Back Pain The primary encounter diagnosis was Bilateral low back pain, with sciatica presence unspecified. A diagnosis of Chronic left SI joint pain was also pertinent to this visit. HPI Ms. Jean presents today with a history of chronic low back pain ongoing for the last 3-4 years. She had a sudden worsening of symptoms when she fell down a flight of stairs on February 12, 2015. Pain can radiate into the left buttock and anterior groin. Since her fall she has had circumferential numbness and tingling down the left thigh and calf with no foot involvement. She denies any pain or weakness in the legs. Reported as 85% back pain, 50% left leg pain. She describes a stabbing pain that is constant in nature. Pain is worse with bending, sitting, lifting and lying down. She feels better when standing. She did a course of physical therapy and wound care technician in 2012 for management of her chronic back pain. In September 2014 she underwent an SI joint injection that offered 60% improvement for 2 week duration. Current pain scale 6 out of 10, at worst a 9 out of 10, at best a 3out of 10. She denies any bowel or bladder dysfunction. She is a half pack per day smoker, exercises by walking. 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 Currently using tramadol, Tylenol, ibuprofen and baclofen for pain management. She has a history of hypertension and diabetes with a previous left hip labral tear treated surgically. HPI Patient Active Problem List Diagnosis ??? Routine history and physical examination of adult ??? Type 2 diabetes mellitus ??? Polycystic ovaries ??? Contraceptive management ??? Insertion of (intrauterine) contraceptive device ??? Left buttock pain ??? Left hip pain ??? Low back pain ??? Pain of left thigh ??? Hyperlipidemia ??? Brachial plexus lesions ??? Shoulder pain ??? Pain in joint, pelvic region and thigh ??? Suicidal ideation ??? Insulin overdose ??? Depression ??? Episodic mood disorder ??? Suicide attempt by drug ingestion ??? Previous delivery, antepartum condition or complication ??? Diabetes mellitus in , antepartum ??? Depression complicating , antepartum ??? Back pain complicating ??? Rh negative state in antepartum period ??? Obesity complicating , childbirth, or puerperium, antepartum ??? Chronic hypertension with exacerbation during in third trimester ??? Tobacco use in , childbirth, or the puerperium, antepartum ??? section wound seroma, ??? Chronic left SI joint pain Past Medical History Diagnosis Date ??? Type 2 diabetes mellitus without (mention of) complications 02/15/2005 ??? Routine general medical examination at health care facility 02/15/2005 ??? Polycystic ovaries 01/21/2008 ??? Fatigue ??? Wears glasses ??? Back pain ??? Anxiety ??? LBP (low back pain) 11/14/2010 ??? Depression ??? TIDWELL (headache) ??? Joint pain ??? Arm numbness ??? Hyperlipidemia 09/04/2011 ??? Hip pain ??? High cholesterol ??? Asthma ??? Hypertension Past Surgical History Procedure Laterality Date ??? Tonsillectomy 2000 ??? Cholecystectomy 11/25/2009 Dr. Mendez ??? section 1998,2007 times 2 ??? Hip arthroscopy 2013 History Substance Use Topics ??? Smoking status: Current Every Day Smoker -- 0.50 packs/day for 2 years Types: Cigarettes ??? Smokeless tobacco: Never Used ??? Alcohol Use: No Family History Problem Relation Age of Onset ??? Cancer Maternal Aunt breast cancer ??? Cancer Maternal Grandmother breats cancer ??? Diabetes Paternal Grandmother ??? Diabetes Paternal Grandfather Current Outpatient Prescriptions Medication Sig Dispense Refill ??? acetaminophen (TYLENOL) 325 mg tablet Take 1-2 Tabs by mouth every 4 hours as needed for Pain. ??? baclofen (LIORESAL) 10 mg tablet Take 10 mg by mouth 3 times daily ??? cephALEXin (KEFLEX) 500 mg capsule Take 500 mg by mouth 4 times daily ??? cyclobenzaprine (FLEXERIL) 10 mg tablet Take 10 mg by mouth 2 times daily. ??? dexmethylphenidate (FOCALIN) 10 mg tablet Take 10 mg by mouth 3 times daily. ??? GABAPENTIN (NEURONTIN ORAL) Take 1,500 mg by mouth daily . ??? glucagon (GLUCAGON EMERGENCY KIT, HUMAN,) 1 mg emergency injection kit Inject 1 mg into the muscle once as needed for up to 1 dose for Low Blood Sugar. 1 Kit 2 ??? glyBURIDE (DIABETA) 5 mg tablet Take 1 Tab by mouth daily. 30 Tab 1 ??? HYDROcodone-acetaminophen (LORTAB) 5-500 mg tablet Take 1 Tab by mouth every 6 hours as needed for Pain ??? ibuprofen (MOTRIN) 400 mg tablet Take 1 Tab by mouth every 4 hours as needed for Pain. ??? labetalol (NORMODYNE) 200 mg tablet Take 1 Tab by mouth every 12 hours. 60 Tab 1 ??? metFORMIN (GLUCOPHAGE) 1,000 mg tablet Take 1 Tab by mouth 2 times daily with breakfast and dinner. 60 Tab 2 ??? multivitamin vit-iron fumarate-FA (STUARTNATAL) 27 mg iron- 1 mg tablet tablet Take 1 Tab by mouth daily. 90 Tab 2 ??? QUEtiapine (SEROQUEL) 200 mg tablet Take 200 mg by mouth 2 times daily. ??? ranitidine (ZANTAC) 150 mg tablet Take 300 mg by mouth 2 times daily. ??? traMADol (ULTRAM) 50 mg tablet Take 50 mg by mouth every 6 hours No current facility-administered medications for this visit. No Known Allergies Review of Systems Constitutional: Negative for fever. Eyes: Negative for visual disturbance. Respiratory: Negative for shortness of breath and wheezing. Cardiovascular: Negative for chest pain and palpitations. Gastrointestinal: Negative for diarrhea and constipation. Musculoskeletal: Positive for back pain. Negative for neck pain. Skin: Negative for rash. Neurological: Positive for numbness. Negative for seizures, weakness and headaches. Psychiatric/Behavioral: Positive for dysphoric mood. The patient is not nervous/anxious. Physical Exam Constitutional: Oriented to person, place, and time. Appears well- developed and well-nourished. HENT: Head: Normocephalic and atraumatic. Eyes: EOMs are normal. Cardiovascular: Normal rate. Pulmonary/Chest: Effort normal. Psychiatric: Normal mood and affect. Neuro: Cranial nerve root III, IV, intact. Ortho Exam Gait is normal. Able to heel and toe walk without difficulty. Skin is intact without lesion, rash or hair tuft. There is no palpable tenderness along the lumbar spinous processes or paravertebral muscles. Tenderness over the left greater than right SI joints. ROM testing deferred. Motor is 5/5 right, 4+ out of 5 left in hip flexion, 5 out of 5 quads, hamstrings, TA, peroneal, and EHL bi laterally. Sensation to light touch is diminished in the lateral and medial left thigh. Reflexes are 0 at patellar and achilles. Dorsalis pedis pulses present bilaterally. Babinski is down going. There is no clonus present. Patel's is negative. SLR is negative bilaterally. Vicenta is positive bilaterally left greater than right sided. Hips shows mildly restricted ROM right-sided. Neurologic Exam The prior workup of the patient includes: AP lateral flexion and extension views of lumbar spine along with plain films of the sacrum are ordered and visualized by me today. In the lumbar spine normal bony alignment. Vertebral body heights maintained. Disc heights preserved. No instability seen. SIjoints show no evidence of fracture or malalignment. Assessment 39-year-old female with acute on chronic low back pain likely related to flared SI joint irritation. Physical exam shows a positive Vicenta's with tenderness directly over the SI joints. Left leg paresthesias track in a nondermatomal distribution and are of unclear etiology. She is a history of a left-sided L4-L5 foraminal disc herniation however she does not have symptoms specific to an L4 dermatome. We discussed treatment options to include expectant management, physical therapy, wound care technician, medication trials and injection options. At this time she is comfortable with following plan. Other Orders Placed This Visit Procedures ??? L SPINE 4 OR MORE VIEWS ??? SACRUM COCCYX 2 OR MORE VIEWS ??? Amb Consult/Follow Up Pain Interventional ??? Amb Consult/Follow Up Chiropractic Plan: 1: Referral for trial RFA of the left sided lateral branches S1-S3 and dorsal ramus of L5 for therapeutic effect 2: Referral for wound care technician given 3: continue pain medications as prescribed by her PCP 4 activities as tolerated: 5: Follow-up 2 weeks status post injection. Pending results consider repeat left SI joint steroid injection if diabetes is well controlled. Consider updated lumbar MRI to rule out worsened disc herniation if no effect from injections targeted to the SI joint. BASILIO Waldron Dr. was on site and available for questions during this visit. All or part of this document has been prepared with speech recognition software and/or keyboard data virtualization consultant techniques. Minor irregularities may be present. documented in this encounter Plan of Treatment Scheduled Referrals Name Type Priority Associated Diagnoses Order Schedule AMB CONS/FOLLOW UP PAIN INTERVENTIONAL Outpatient Referral Routine Bilateral low back pain, with sciatica presence unspecified Chronic left SI joint pain Ordered: 03/17/2015 AMB CONS/FOLLOW UP CHIROPRACTIC Outpatient Referral Routine Bilateral low back pain, with sciatica presence unspecified Chronic left SI joint pain Ordered: 03/17/2015 documented as of this encounter Goals Goal Patient Goal Type Associated Problems Recent Progress Patient-Stated? Author HEMOGLOBIN A1C < 7.0 Result Component Type 2 diabetes mellitus ([facility]) 8.7(07/07/2015 5:05 EST) No Annmarie Vigil documented as of this encounter Procedures Procedure Name Priority Date/Time Associated Diagnosis Comments SACRUM COCCYX 2 OR MORE VIEWS Routine 03/17/2015 10:52 EST Bilateral low back pain, with sciatica presence unspecified Chronic left SI joint pain L SPINE 4 OR MORE VIEWS Routine 03/17/2015 10:52 EST Bilateral low back pain, with sciatica presence unspecified documented in this encounter Results * SACRUM COCCYX 2 OR MORE VIEWS (03/17/2015 10:52 EST) Anatomical Region Laterality Modality Other 03/17/2015 10:5 2 EST 03/17/2015 11:20 EST Narrative 03/17/2015 11:20 EST 4 views of the lumbar spine and 2 views of the sacrum March 17, 2015. History: Left SI joint pain and back pain. Comparison: None. Findings: Lumbar spine: AP, lateral, and flexion and extension views of the lumbar spine were acquired. There is no significant scoliosis. Surgical clips in the right upper quadrant suggest prior cholecystectomy. In the neutral lateral projection alignment of the lumbar vertebral bodies is anatomic and disc space heights appear maintained. In flexion and extension there is no instability. SI joints: AP and lateral views of the sacrum and coccyx demonstrate no evidence of fracture or malalignment. The sacroiliac joints appear congruent. Procedure Note Dilan Alfredo MD - 03/17/2015 4 views of the lumbar spine and 2 views of the sacrum March 17, 2015. History: Left SI joint pain and back pain. Comparison: None. Findings: Lumbar spine: AP, lateral, and flexion and extension views of the lumbar spine were acquired. There is no significant scoliosis. Surgical clips in the right upper quadrant suggest prior cholecystectomy. In the neutral lateral projection alignment of the lumbar vertebral bodies is anatomic and disc space heights appear maintained. In flexion and extension there is no instability. SI joints: AP and lateral views of the sacrum and coccyx demonstrate no evidence of fracture or malalignment. The sacroiliac joints appear congruent. Barbara Iglesias PA-C [facility] ORDERABLES * L SPINE 4 OR MORE VIEWS (03/17/2015 10:52 EST) Anatomical Region Laterality Modality Other 03/17/2015 10:5 2 EST 03/17/2015 11:20 EST Narrative 03/17/2015 11:20 EST 4 views of the lumbar spine and 2 views of the sacrum March 17, 2015. History: Left SI joint pain and back pain. Comparison: None. Findings: Lumbar spine: AP, lateral, and flexion and extension views of the lumbar spine were acquired. There is no significant scoliosis. Surgical clips in the right upper quadrant suggest prior cholecystectomy. In the neutral lateral projection alignment of the lumbar vertebral bodies is anatomic and disc space heights appear maintained. In flexion and extension there is no instability. SI joints: AP and lateral views of the sacrum and coccyx demonstrate no evidence of fracture or malalignment. The sacroiliac joints appear congruent. Procedure Note Dilan Alfredo MD - 03/17/2015 4 views of the lumbar spine and 2 views of the sacrum March 17, 2015. History: Left SI joint pain and back pain. Comparison: None. Findings: Lumbar spine: AP, lateral, and flexion and extension views of the lumbar spine were acquired. There is no significant scoliosis. Surgical clips in the right upper quadrant suggest prior cholecystectomy. In the neutral lateral projection alignment of the lumbar vertebral bodies is anatomic and disc space heights appear maintained. In flexion and extension there is no instability. SI joints: AP and lateral views of the sacrum and coccyx demonstrate no evidence of fracture or malalignment. The sacroiliac joints appear congruent. Barbara [facility] ORDER[facility]LES documented in this encounter Visit Diagnoses Diagnosis Bilateral low back pain, with sciatica presence unspecified- Primary Chronic left SI joint pain Disorders of sacrum documented in this encounter Historical Medications * This list may reflect changes made after this encounter. Medication Sig Dispensed Refills Start Date End Date traMADol (ULTRAM) 50 mg tablet Take 50 mg by mouth every 6 hours baclofen (LIORESAL) 10 mg tablet Take 10 mg by mouth 3 times daily 11/14/2015 added in this encounter Care Teams Supervisor Plate Pasting Relationship Specialty Start Date End Date Annette Sidhu APRN [address] [place] [phone] PCP - General 03/19/13 07/06/19 documented as of this encounter
--- OUTSIDE RECORDS SUMMARY | 2024-02-14 15:20 | XMS_ITS | Encounter Summary ---
Author Organization [facility] Address [address] [place] [address] Care Team Providers Care Loader [employer]alt [employer] Name Role Phone Annette Sidhu APRN Primary Care Provider [phone] Jossie Patton APRN Primary Care Provider + [phone] Stephanie Santos MD Primary Care Provider [phone] Reason for Visit * Reason Comments Other Encounter Details Date Type Department Care Team (Late st Contact Info) Description 03/28/2015 Refill [facility] O[facility] - [address] [address] Eduardo Friend MD [address] [place] [address] [place] [address] Other Social History Tobacco Use Types Packs/Day [...] Type 2 diabetes mellitus ([facility]) 8.7(07/07/2015 5:05 EST) No Annmarie Vigil documented as of this encounter Visit Diagnoses Not on filedocumented in this encounter Additional Health Concerns Infection Onset Date Last Indicated Resolved Time MRSA Comment:IP note: risk factors - DM, obesity Pos sinus 06/30/17 M Chito 07/01/17 07/01/2017 07/01/2017 documented as of this encounter Care Teams Loader [employer]alt [employer] Relationship Specialty Start Date End Date Annette Sidhu APRN [address] [place] [phone] PCP - General 03/19/13 07/06/19 Jossie Patton APRN [address] [place] [phone] PCP - General 07/07/19 11/10/23 Stephanie Santos MD [address] [place], [place] [phone] PCP - General Family Medicine - Primary Care 11/11/23 documented as of this encounter
--- OUTSIDE RECORDS SUMMARY | 2024-02-14 15:20 | XMS_ITS | Encounter Summary ---
Author Organization [facility] Address [address] [place] [address] Care Team Providers Care Director Of Marketing Analytics Name Role Phone Annette Sidhu APRN Primary Care Provider Reason for Visit * Reason Comments Post- Care wound check Encounter Details Date Type Department Care Team (Late st Contact Info) Description 06/15/2014 12:50 EST Office Visit [facility] - [address] [address] Gisela Hercules MD [address] [place] [address], [address] [place] [phone] section wound seroma, (Primary Dx) Discharge Disposition: Auto Discharge Social History Tobacco [...] Sign Reading Time Taken Comments Blood Pressure 118/70 06/15/2014 1321 EST Pulse - - Temperature - - [...] as of this encounter Discharge Diagnoses Diagnosis 674.34 OB SURG COMP NEC-POSTPAR[ICD-9-CM] documented in this encounter Discharge Disposition Disposition Code Departure Means Destination Auto Discharge documented in this encounter Progress Notes * Maria Eugenia Dan MD - 06/15/2014 3864 EST Images from the original note were not included. CC: Wound check Subjective Guzman Jean is an 38 y.o. with cHTN and T2DM who is s/p LTCS+BTL on 05/12/2014, course c/b wound separation and cellulitis. In summary, had been seen in ED at [facility]SH on 05/31/2013, where she was given one dose of Ceftriaxone andstarted on a 7d course of Keflex for cellulitis. Has been undergoing weekly clinic visits and dailywound packing to promote healing by secondary intent. States that was feeling febrile over the weekend, and was seen in the ED on Saturday (06/13/2014) at the outside hospital, and once again due to concern for cellulitis and purulent discharge, was started on another 7 day course of Keflex. Patient reports today that since starting on the Keflex, the smell of the discharge has improved. States that her glucose values have been well controlled, checked her sugar earlier today, and was found to be 80. Has been sending her sugars to endocrine. Objective BP 118/70 LMP 08/31/2013 ? No Gen: NAD Abdomen: Soft, non-tender to palpation. Small (1cm) area of separation (see figure below, A) on right edge of skin incision, probed with sterile Q-tip, and barely 1cm of tracking towards lateral aspect of infection. Small (also 1cm) area of separation at point B of figure, extremely superficial, unable to stick Q-tip into separation. Surrounding skin non-erythematous, non-fluctuant to palpation, nothing expressed from wound on palpation. Surrounding wound edges appear pink and healthy. Baseof wound with granulation tissue. Wound was repacked with Iodoform. Assessment/Plan Guzman Jean is an 38 y.o. with cHTN and T2DM who is s/p LTCS+BTL on 05/12/2014 who presents for a wound check. Wound appears to be healing well, good granulation tissue, no evidence of necrosis. Continue daily packing with VNA. Continue weekly clinic visits, with plans for full visit next week (6wks from delivery). Since was started on second course of Keflex from OSH, advised to finish Abx. Normotensive today. Glycemic control sounds good per patient report. Patient seen with Dr. Hercules. Maria Eugenia Dan MD 06/15/2014 13:45 I saw and discussed the patient with the resident at the time of visit. I agree with the above assessment and plan of care. Recommend packing with iodoform instead of 2 x 2 as area is narrow, or Aquacel strips to promote healing. Gisela Hercules MD documented in this encounter Plan of Treatment Not on file documented as of this encounter Goals Goal Patient Goal Type Associated Problems Recent Progress Patient-Stated? Author HEMOGLOBIN A1C < 7.0 Result Component Type 2 diabetes mellitus ([facility]) 8.7(07/07/2015 5:05 EST) Annmarie Lopez documented as of this encounter Visit Diagnoses Diagnosis section wound seroma, - Primary Other complication of obstetrical surgical wounds, condition or complication documented in this encounter Historical Medications * This list may reflect changes made after this encounter. Medication Sig Dispensed Refills Start Date End Date HYDROcodone-acetaminophen (LORTAB) 5-500 mg tablet Take 1 Tab by mouth every 6 hours as needed for Pain 11/14/2015 cephALEXin (KEFLEX) 500 mg capsule Take 500 mg by mouth 4 times daily 11/14/2015 added in this encounter Care Teams Director Of Marketing Analytics Relationship Specialty Start Date End Date Annette Sidhu, [employer] [address] [place] [phone] PCP - General 03/19/13 07/06/19 documented as of this encounter
--- OUTSIDE RECORDS SUMMARY | 2024-02-14 15:20 | XMS_ITS | Encounter Summary ---
Author Organization [facility] Address [address] [place] [address] Care Team Providers Care Casino Duty Manager Name Role Phone Annette Sidhu APRN Primary Care Provider [phone] Encounter Details Date Type Department Care Team (Late st Contact Info) Description 05/24/2014 Documentation Visit [facility] Obstetrics & Midwifery - [address] [address] Cary Christensen RN Social History Tobacco Use Types Packs/Day [...] Yes 05/12/2014 documented as of this encounter Progress Notes * Cary Christensen, RN - 05/24/2014 8368 EST Short term disability paperwork completed and signed by Dr. Méndez. Faxed back to [facility] at with confirmation of receipt printed. Hard copy in folder to be scanned into [employer]. documented in this encounter Plan of Treatment Not on file documented as of this encounter Goals Goal Patient Goal Type Associated Problems Recent Progress Patient-Stated? Author HEMOGLOBIN A1C < 7.0 Result Component Type 2 diabetes mellitus ([facility]) 8.7(07/07/2015 5:05 EST) No Annmarie Vigil documented as of this encounter Visit Diagnoses Not on filedocumented in this encounter Care Teams Casino Duty Manager Relationship Specialty Start Date End Date Annette Sidhu APRN [address] [place] [address] [phone] PCP - General 03/19/13 07/06/19 documented as of this encounter
--- OUTSIDE RECORDS SUMMARY | 2024-02-14 15:20 | XMS_ITS | Encounter Summary ---
Author Organization [facility] Address [address] [place] [address] Care Team Providers Care Tutoring Assistant Name Role Phone Annette Sidhu APRN Primary Care Provider [phone] Reason for Visit * Reason Onset Date Comments Appointment Related 06/08/2014 Encounter Details Date Type Department Care Team (Late st Contact Info) Description 06/08/2014 Telephone [facility] Obstetrics & Midwifery - [address] [address] Gisela Rodrigues MD [address] [place] [address], [address] [place] [phone] Appointment Related Social History Tobacco [...] encounter Miscellaneous Notes * Telephone Encounter - Liana Madrigal - 06/08/2014 1609 EST 06.08.2014- FOR PT REGARDING AN APPT THAT I SCHEDULED (06.15.2014 @ 12:50 W/ DR. RODRIGUES). documented in this encounter Plan of Treatment Not on file documented as of this encounter Goals Goal Patient Goal Type Associated Problems Recent Progress Patient-Stated? Author HEMOGLOBIN A1C < 7.0 Result Component Type 2 diabetes mellitus ([facility]) 8.7(07/07/2015 5:05 EST) No Annmarie Vigil documented as of this encounter Visit Diagnoses Not on filedocumented in this encounter Care Teams Tutoring Assistant Relationship Specialty Start Date End Date Annette Sidhu APRN [address] [place] [phone] PCP - General 03/19/13 07/06/19 documented as of this encounter
--- OUTSIDE RECORDS SUMMARY | 2024-02-14 15:20 | XMS_ITS | Encounter Summary ---
Author Organization [facility] Address [address] [place] [address] Care Team Providers Care Continuous Mining Operator Name Role Phone Annette Sidhu APRN Primary Care Provider [phone] Reason for Visit * Reason Onset Date Comments Appointment Related 06/09/2014 Encounter Details Date Type Department Care Team (Late st Contact Info) Description 06/09/2014 Telephone [facility] Obstetrics & Midwifery - [address] [address] Michelle Devine RN Appointment Related Social History Tobacco Use Types [...] Telephone Encounter - Michelle Devine RN - 06/09/2014 1207 EST Phone call from Jossie at [facility], they were able to make contact with Guzman on May 31,, and . They then tried to make phone contact to schedule further appointments for dressing changes and Guzman did not return their calls, they further drove to her house thinking her phone wasn't working, found [address], knocked on the door, but no answer. She was in for a dressing change here yesterday, was suppose to be today. Per Dr. Onofre's notes she is still to be having daily dressing changes and weekly MFM visits to look at her incision. Phone call made and message left at Guzman's home by me, left her a voice mail message relaying above. Await phone call back asrequested by me to address the amount of contact and frequency of visits. documented in this encounter Plan of Treatment Not on file documented as of this encounter Goals Goal Patient Goal Type Associated Problems Recent Progress Patient-Stated? Author HEMOGLOBIN A1C < 7.0 Result Component Type 2 diabetes mellitus ([facility]) 8.7(07/07/2015 5:05 EST) No Annmarie Vigil documented as of this encounter Visit Diagnoses Not on filedocumented in this encounter Care Teams Continuous Mining Operator Relationship Specialty Start Date End Date Annette Sidhu APRN [address] [place] [phone] PCP - General 03/19/13 07/06/19 documented as of this encounter
--- OUTSIDE RECORDS SUMMARY | 2024-02-14 15:20 | XMS_ITS | Encounter Summary ---
Author Organization [facility] Address [address] [place] [id number] Care Team Providers Care Biztalk Administrator Name Role Phone Annette Sidhu APRN Primary Care Provider [phone] Reason for Visit * Reason Comments Follow-up right hand Encounter Details Date Type Department Care Team (Latest Contact Info) Description 11/14/2015 13:43 EDT - 11/14/2015 17:39 EDT Hospital Encounter [facility] - [address] [address] Nilson Boykin MD [address] [place] [phone] Unknown, Provider, Radial nerve palsy, right (Primary Dx) Discharge Disposition: Home or Self [...] Sign Reading Time Taken Comments Blood Pressure 138/79 11/14/2015 1504 EDT Pulse 82 11/14/2015 1504 EDT Temperature 37.4 ??C (99.4 ??F) 11/14/2015 1504 EDT Respiratory Rate 14 11/14/2015 1504 EDT Oxygen Saturation - - Inhaled Oxygen [...] 05/12/2014 documented as of this encounter Discharge Instructions * Attachments The following attachments cannot be sent through Care Everywhere. * NEUROPATHY: RADIAL NERVE: SATURDAY NIGHT PALSY (DOMINICAN) documented in this encounter Medications at Time [...] hours as needed for Pain. 05/16/2014 10/21/2020 cyclobenzaprine (FLEXERIL) 10 mg tablet Take 10 mg by mouth 2 times daily. 06/28/2017 dexmethylphenidate (FOCALIN) 10 mg tablet Take 10 mg by mouth 3 times daily. 10/21/2020 glucagon (GLUCAGON EMERGENCY KIT, HUMAN,) 1 mg emergency injection kit Inject 1 mg into the muscle once as needed for up to 1 dose for Low Blood Sugar. 1 Kit 2 05/08/2014 10/21/2020 QUEtiapine (SEROQUEL) 200 mg tablet Take 200 mg by mouth 2 times daily. Reported on 04/30/2016 04/30/2016 documented as of this encounter Discharge Disposition Disposition Code Departure Means Destination Home or Self Care documented in this encounter ED Notes * Nilson Boykin MD - 11/14/20152023 EDT I performed a history and exam of this patient and discussed the case with the resident. I reviewedthis individual's note and I concur with the documented findings and plan of care. A radial nerve palsy, moderate in intensity, lower in distribution, from an episode of altered level of consciousness from? Antidepressive versus potassium versus hypoglycemic episode. * Maria Eugenia Mooney RN - 11/14/2015 1738 EDT Discharged byMD * Cristal Menendez RN - 11/14/2015 1506 EDT Pt seen at [facility] last Saturday morning for possible overmedicating on Seroquel and c/o right hand pain, numbness and weakness. Relates got a splint for hand with no relief and pain, numbness, tingling has gotten worse since then. Point tenderness and swelling over right lateral aspect of wrist with radiating pain up and down. CSMTs and radial pulse intact. Denies any other injury, bruising. documented in this encounter Miscellaneous Notes * ED Resident - Jossie Méndez MD - 11/14/2015 1643 EDT DOS: 11/14/2015 Chief Complaint Patient presents with ??? Follow-up right hand HPI The patient is a 40 y.o. female who presents today with Follow-up HPI Comments: 40yo female w/ DMT2 and depression/mood disorder w/ suicidal ideation presents with right wrist and hand pain and numbness x 6 days. She reports that she was driving home from work on 11/08/15 when she began to feel like she was going to pass-out, pulled over to side of road and did pass-out for ~5hrs, when a stranger woke her and assisted her home. Her parents brought her to [facility] ED where she was admitted to the psych unit due to suspected medication overdose and/or suicidal ideation and slept for ~36hrs. She awoke on the morning of 11/09/15 with numbness from right mid-forearm to her fingers, an electric shock-type pain with janeen movement of her wrist, and unable toextend her right wrist and fingers. She describes the sensation as if her right lower arm fell asleep and won't wake up. She feels like her right wrist is slightly swollen. She was discharged home the evening of 11/09/15. She has tried ice, elevation, and 800mg ibuprofen w/ no relief. Grasping andwrist movement exacerbate the feeling. She has never had anything like this before, no Hx of carpaltunnel syndrome or thyroid disease. She reports no other symptoms. 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 Review of Systems Review of Systems Constitutional: Negative for fever. Respiratory: Negative for shortness of breath. Cardiovascular: Negative for chest pain. Gastrointestinal: Negative for nausea and vomiting. Musculoskeletal: Positive for joint swelling. Negative for myalgias and arthralgias. Skin: Negative for pallor, rash and wound. Neurological: Positive for weakness and numbness. Psychiatric/Behavioral: Negative for suicidal ideas. The patient's past medical, family and social history was reviewed and updated as needed. No Known Allergies Vital Signs Temp: 99.4 ??F (37.4 ??C) Temp src: Temporal Pulse: 82 Resp: 14 BP: 138/79 mmHg Physical Exam Constitutional: She appears well-developed and well-nourished. No distress. Cardiovascular: Normal rate, regular rhythm and normal heart sounds. Pulmonary/Chest: Effort normal and breath sounds normal. No respiratory distress. Musculoskeletal: Mild right wrist drop with finger flexion on inspection Right wrist appears mildly swollen compared to left Numbness w/ palpation right mid-forearm to fingers dorsal > ventral Paresthesias in right wrist to fingers w/ passive and active ROM, especially with wrist flexion, extension, supination, and finger extension Strength 4/5 on right compared to 5/5 on left w/ above Brachioradialis, Biceps, Triceps DTR's 0 on right, 1+ on left RESULTS EKG orders: None Radiology orders: WRIST 3 OR MORE VIEWS Imaging Reviewed. I have independently reviewed the images. There are no significant abnormalities ED Lab Results Labs Reviewed - No data to display Procedures ED COURSE A medical screening exam was performed. ASSESSMENT AND PLAN Final diagnoses: Radial nerve palsy, right -placed in short-arm splint with right wrist in neutral and able to extend and use fingers -pt has appointment tomorrow (11/14/15) at 2:40pm with Orthopedics at [facility] in [place] DISPOSITION: Discharged The patient's pain was managed to an adequate level weighing risk vs. benefit of further medications. Upon departure from the Emergency Department, the patient's pain was 1 on a zero to ten scale. Condition at departure from the Emergency Department: Improved PCP: Annette Sidhu [facility] Jossie Méndez MD Family Medicine, PGY1 11/14/201517:39 No flowsheet data found. documented in this encounter Plan of Treatment Not on file documented as of this encounter Goals Goal Patient Goal Type Associated Problems Recent Progress Patient-Stated? Author HEMOGLOBIN A1C < 7.0 Result Component Type 2 diabetes mellitus ([facility]) 8.7(07/07/2015 5:05 EST) No Annmarie Vigil documented as of this encounter Procedures Procedure Name Priority Date/Time Associated Diagnosis Comments WRIST 3 OR MORE VIEWS STAT 11/14/2015 15:49 EDT documented in this encounter Results * WRIST 3 OR MORE VIEWS (11/14/2015 15:49 EDT) Anatomical Region Laterality Modality Other 11/14/2015 15:4 9 EDT 11/14/2015 16:14 EDT Narrative 11/14/2015 16:14 EDT WRIST 3 OR MORE VIEWS ??11/14/2015 3:49 PM Signs and Symptoms/Comments: ??PAIN, pain in the scaphoid/dorsal area of wrist after unknown injury Comparison: None Technique: PA, oblique, and lateral radiographs of the right wrist were obtained in addition to scaphoid view of the right wrist. FINDINGS: No acute fractures or dislocations identified. Normal radiographs of the right wrist. I have personally reviewed the images and the above interpretation and agree with the findings. Procedure Note Marcin Villareal MD - 11/14/2015 WRIST 3 OR MORE VIEWS 11/14/2015 3:49 PM Signs and Symptoms/Comments: PAIN, pain in the scaphoid/dorsal area of wrist after unknown injury Comparison: None Technique: PA, oblique, and lateral radiographs of the right wrist were obtained in addition to scaphoid view of the right wrist. FINDINGS: No acute fractures or dislocations identified. Normal radiographs of the right wrist. I have personally reviewed the images and the above interpretation and agree with the findings. Nilson Boykin MD IMG DIAGNOSTIC IMAGING ORDERABLES documented in this encounter Visit Diagnoses Diagnosis Radial nerve palsy, right- Primary documented in this encounter Discontinued Medications Medication Sig Discontinue Reason Start Date End Da te baclofen (LIORESAL) 10 mg tablet Take 10 mg by mouth 3 times daily Therapy completed 11/14/2015 cephALEXin (KEFLEX) 500 mg capsule Take 500 mg by mouth 4 times daily Therapy completed 11/14/2015 glyBURIDE (DIABETA) 5 mg tablet Take 1 Tab by mouth daily. Therapy completed 05/16/2014 11/14/2015 HYDROcodone-acetaminophe n (LORTAB) 5-500 mg tablet Take 1 Tab by mouth every 6 hours as needed for Pain Therapy completed 11/14/2015 multivitamin vit-iron fumarate-FA (STUARTNATAL) 27 mg iron- 1 mg tablet tablet Take 1 Tab by mouth daily. Therapy completed 12/31/2013 11/14/2015 documented as of this encounter Orders General Supply Count Last Ordered Date First Or dered Date WRIST BRACE 1 11/14/2015 documented in this encounter Care Teams Biztalk Administrator Relationship Specialty Start Date End Date Annette Sidhu APRN [address] [place] [phone] PCP - General 03/19/13 07/06/19 documented as of this encounter
--- OUTSIDE RECORDS SUMMARY | 2024-02-14 15:20 | XMS_ITS | Encounter Summary ---
Author Organization [facility] Address [address] [place] [address] Care Team Providers Care Shooting Gallery Operator Name Role Phone Annette Sidhu APRN Primary Care Provider [phone] Reason for Visit * Reason Onset Date Comments Wound Infection 05/31/2014 Encounter Details Date Type Department Care Team (Late st Contact Info) Description 05/31/2014 Telephone [facility] OBGYN Services - [address] [address] Selvin Christie MD [address] [place] [address] Wound Infection Social History Tobacco Use Types Packs/Day Years [...] encounter Miscellaneous Notes * Telephone Encounter - Selvin Christie MD - 05/31/20142015 EST 38 y/o s/p c/section 05/12/14 presents to ED with left sided wound separation, purulent discharge, tenderness. Afebrile in ED. Tolerating PO, normal vaginal bleeding. Per physician no fundal tenderness. Is concerned for cellulitis. Rocephin administered. Rx for Keflex given. To follow up in our OB clinic for problem visit on 06/01/14. FSBS was 175. WBC count of 26k. Endometritis precautions reviewed with physician. Clinic called to be aware of scheduling appointment. Selvin Chirstie MD documented in this encounter Plan of Treatment Not on file documented as of this encounter Goals Goal Patient Goal Type Associated Problems Recent Progress Patient-Stated? Author HEMOGLOBIN A1C < 7.0 Result Component Type 2 diabetes mellitus ([facility]) 8.7(07/07/2015 5:05 EST) No Annmarie Vigil documented as of this encounter Visit Diagnoses Not on filedocumented in this encounter Care Teams Shooting Gallery Operator Relationship Specialty Start Date End Date Annette Sidhu APRN [address] [place] [phone] PCP - General 03/19/13 07/06/19 documented as of this encounter
--- OUTSIDE RECORDS SUMMARY | 2024-02-14 15:20 | XMS_ITS | Encounter Summary ---
Author Organization [facility] Address [address] [place] [id number] Care Team Providers Care Senior Accountant Analyst Name Role Phone Nahum Annette Kay APRN Primary Care Provider [phone] Reason for Visit * Reason Comments Ankle Injury right Encounter Details Date Type Department Care Team (Latest Contact Info) Description 04/30/2016 16:49 EST - 04/30/2016 19:[address] [facility] - [address] [address] Quincy Gonsalves MD [address] [place] [phone] Unknown, Provider, Sprain of right ankle, unspecified ligament, initial encounter (Primary Dx) Discharge Disposition: Home [...] Sign Reading Time Taken Comments Blood Pressure 169/84 04/30/2016 1658 EST Pulse 101 04/30/2016 1658 EST Temperature 36.4 ??C (97.6 ??F) 04/30/2016 1658 EST Respiratory Rate 18 04/30/2016 1658 EST Oxygen Saturation - - Inhaled Oxygen Concentration [...] as of this encounter Discharge Diagnoses Diagnosis S93.401A Sprain of unspecified ligament of right ankle, initial encounter-S93.401A[ICD-10-CM] documented in this encounter Discharge Instructions * Discharge Instructions* Quincy Gonsalves MD - 04/30/2016 19:27 EST Use the walking boot and crutches as needed. Transition into the ankle brace as you improve. Your primary care can help guide you with that if you are unsure. * Attachments The following attachments cannot be sent through Care Everywhere. * ANKLE SPRAIN (TELUGU) documented in this encounter Medications at Time [...] Blood Sugar. 1 Kit 2 05/08/2014 10/21/2020 documented as of this encounter Discharge Disposition Disposition Code Departure Means Destination Home or Self Care Walk-out Home documented in this encounter ED Notes * Quincy Gonsalves MD - 04/30/2016 1825 EST DOS: 04/30/2016 Chief Complaint Patient presents with ??? Ankle Injury right The patient is a 40 y.o. female who presents today with Ankle Injury (right) HPI Comments: Chief complaint right ankle pain had an inversion injury to her right ankle yesterday afternoon at home. She was wearing some clogs and had been outside and when she came inside the moisture on the bottom of her clogs caused her to slip. He had immediate pain. She was seen in the [facility] emergency room that evening and thinks she had a negative x-ray but for some reason is uncomfortable with the results. She has not been able to weight-bear since the injury other than light toe touch. She notes most the pain is over the lateral aspect of the ankle. She was provided with a stirrup ankle brace and crutches which she has been using but feels like the pain has worsened. She really has had minimal weightbearing but was moving around a fair amount with crutches today. She has some positional tingling in her foot. The history is provided by the patient. Ankle Injury Associated symptoms: no back pain and no neck pain Review of Systems Gastrointestinal: Negative for nausea and vomiting. Musculoskeletal: Negative for back pain, neck pain and neck stiffness. Skin: Negative for wound. Neurological: Negative for weakness, numbness and headaches. No current facility-administered medications for this encounter. Current Outpatient Prescriptions Medication Sig Dispense Refill ??? acetaminophen (TYLENOL) 325 mg tablet Take 1-2 Tabs by mouth every 4 hours as needed for Pain. ??? cyclobenzaprine (FLEXERIL) 10 mg tablet Take [...] Low Blood Sugar. 1 Kit 2 ??? ibuprofen (MOTRIN) 400 mg tablet Take 1 Tab by mouth every 4 hours as needed for Pain. ??? labetalol (NORMODYNE) 200 mg tablet Take 1 Tab by mouth every 12 hours. 60 Tab 1 ??? metFORMIN (GLUCOPHAGE) 1,000 mg tablet Take 1 Tab by mouth 2 times daily with breakfast and dinner. 60 Tab 2 ??? pioglitazone (ACTOS) 30 mg tablet Take 30 mg by mouth daily. ??? ranitidine (ZANTAC) 150 mg tablet Take 300 mg by mouth 2 times daily. ??? sitaGLIPtin (JANUVIA) 100 mg tablet Take 100 mg by mouth daily. ??? traMADol (ULTRAM) 50 mg tablet Take 50 mg by mouth every 6 hours No Known Allergies Patient Active Problem List Diagnosis Date Noted ??? Chronic left SI joint pain 03/17/2015 ??? Previous delivery, antepartum condition or complication 12/11/2013 The patient desires a repeat delivery. Plan for 39 weeks' gestation. ??? Episodic mood disorder 05/07/2013 ICD10 Update Auto Replacement ??? Suicide attempt by drug ingestion 05/07/2013 ??? section wound seroma, 06/01/2014 Seroma without evidence of cellulitis Excellent granulation tissue Packed today Daily home health care for wound packing Weekly visit ??? Tobacco use in , childbirth, or the puerperium, antepartum 02/22/2014 Smoking - 1/2 ppd- encouraged further decrease ??? Chronic hypertension with exacerbation during in third trimester 01/18/2014 The patient has a history of chronic hypertension pre dating . Her primary care physician discontinued her PHILIPPE-inhibitor prior to . The patient stopped taking her Labetalol because it was giving her headaches. The patient's third trimester 24-hour urine was 550mg/24 hours. Currently treating as chronic hypertension. Blood pressure stable today. ??? Diabetes mellitus in , antepartum 12/11/2013 Baseline pre-eclampsia labs: Never did. First 24hr [...] glucose log. She states that her fasting bloodglucose is over 200 this morning. Her HgbA1c has increased from 5.1% to 7.0% in the early third trimester. We will call the patient and obtain BS. It is likely that she will need to be on insulin forglycemic control. We are obviously concerned because of her previous suicide attempt. Will discuss with the MFM group and Endocrine. 04/27/2014 - discharged from the hospital on 20 U Lantus w/ 15 U Novolog with meals 04/30/2014: Increased to 30u Lantus, with Novolog still as above. 05/07/2013: Lantus 35 Units, with Novolog 15 with meals ICD10 Update Auto Replacement ??? Depression complicating , antepartum 12/11/2013 Previous suicide attempt 04/[address] Colbert Multiple meds - dexmethyphenidate , Gabapentin, seroquel Seen q 2 wk. Stable at this time ??? Back pain complicating 12/11/2013 Surgery L4L5- herniated disc- Dr. Betina Verde and occasional tylenol for control ??? Rh negative state in antepartum period 12/11/2013 Screen at 28 wks with Rhogam ??? Obesity complicating , childbirth, or puerperium, antepartum 12/11/2013 BMI- 32 discussed wt ICD10 Update Auto Replacement ??? Suicidal ideation 05/01/2013 ??? Insulin overdose 05/01/2013 ??? Depression 05/01/2013 ??? Pain in joint, pelvic region and thigh 02/08/2012 ??? Brachial plexus lesions 10/16/2011 ??? Shoulder pain 10/16/2011 ??? Hyperlipidemia 09/04/2011 ??? Pain of left thigh 08/20/2011 ??? Low back pain 11/14/2010 ??? Left hip pain 10/06/2010 NO NARCOTICS, INAPPROPRIATE URINE SCREEN ??? Left buttock pain 11/23/2009 ??? Insertion of (intrauterine) contraceptive device 08/26/2008 ??? Contraceptive management 08/11/2008 MIRENA IUD 08/26/2008 ??? Polycystic ovaries 01/21/2008 ??? Routine history and physical examination of adult 02/15/2005 ??? Type 2 diabetes mellitus 02/15/2005 Past Medical History Diagnosis Date ??? Anxiety ??? Arm numbness [...] (mention of) complications 02/15/2005 ??? Wears glasses Social History Substance Use Topics ??? Smoking status: Current Every Day Smoker Packs/day: 0.50 Years: 2.00 Types: Cigarettes ??? Smokeless tobacco: Never Used ??? Alcohol use No Family History Problem Relation Age of Onset ??? Cancer Maternal Aunt breast cancer ??? Cancer Maternal Grandmother breats cancer ??? Diabetes Paternal Grandmother ??? Diabetes Paternal Grandfather BP (!) 169/84 Pulse 101 Temp 97.6 ??F (36.4 ??C) (Temporal) Resp 18 Physical Exam Constitutional: She is oriented to person, place, and time. She appears well- developed and well-nourished. No distress. HENT: Head: Normocephalic and atraumatic. Eyes: Conjunctivae are normal. Neck: Normal range of motion. Neck supple. Pulmonary/Chest: Effort normal. No respiratory distress. Musculoskeletal: Normal range of motion. Right ankle: She exhibits swelling and ecchymosis. Tenderness. Lateral malleolus, AITFL, CF ligament and posterior TFL tenderness found. No medial malleolus, no head of 5th metatarsal and no proximalfibula tenderness found. There is mild to moderate edema and ecchymosis over the lateral aspect of the right ankle. There istenderness to palpation over the distal fibula as well as the adjacent ligaments. Some mild anterior ankle tenderness as well. She has minimal tenderness to palpation over her foot. There is no ecchymosis or edema over the foot. No medial ankle tenderness. Neurological: She is alert and oriented to person, place, and time. Skin: Skin is warm and dry. She is not diaphoretic. Psychiatric: She has a normal mood and affect. Her behavior is normal. Consult orders: None PCP: Annette Sidhu No results found for this visit on 04/30/16. Radiology orders: ANKLE 3 OR MORE VIEWS Imaging Results ANKLE 3 OR MORE VIEWS (Final result) Result time: 04/30/16 19:06:54 Final result Narrative: ANKLE 3 OR MORE VIEWS 04/30/2016 6:45 PM Signs and Symptoms/Comments: PAIN. Findings: 3 views of the right ankle were obtained. This shows mild lateral soft tissue swelling. The ankle mortise is intact. There is no fracture or dislocation noted. There is likely a small joint space effusion present. Preliminary result Narrative: PRELIMINARY REPORT ANKLE 3 OR MORE VIEWS 04/30/2016 6:45 PM Signs and Symptoms/Comments: PAIN. Findings: 3 views of the right ankle were obtained. This shows mild lateral soft tissue swelling. The ankle mortise is intact. There is no fracture or dislocation noted. There is likely a small joint space effusion present. No orders to display Relevant Data Procedures URGENT CARE COURSE A medical screening exam was performed. ASSESSMENT AND PLAN Final diagnoses: Sprain of right ankle, unspecified ligament, initial encounter Reviewed xray with radiologist who felt small lucency on lateral view is old. Given pt discomfort she will use her walking boot. Crutches prn. Transition to brace as she improves. F/u pcp in 1 week. Reviewed symptomatic treatment and indications for follow up. See discharge instructions. No supervision required. DISPOSITION: Discharged The patient's pain was managed to an adequate level weighing risk vs. benefit of further medications. Upon departure from [facility], the patient's pain was 3 on a zero to ten scale. Condition at departure from the [facility] : Stable [facility] 04/30/2016 19:27 * Cristal Menendez RN - 04/30/2016 1700 EST Pt presents with right ankle pain ( lateral malleolus) and swelling s/p inversion injury 04/29/16 around 15:00. Was seen at [facility] yesterday , xray negative for fx, diagnosed with sprain. Wears ankle stir up and c/o increased pain since yesterday. Rates current pain at 5/10 and tingling around rt toe and base of 1st MCP. Denies any numbness in RLE. documented in this encounter Plan of Treatment Not on file documented as of this encounter Goals Goal Patient Goal Type Associated Problems Recent Progress Patient-Stated? Author HEMOGLOBIN A1C < 7.0 Result Component Type 2 diabetes mellitus ([facility]) 8.7(07/07/2015 5:05 EST) No Annmarie Vigil documented as of this encounter Procedures Procedure Name Priority Date/Time Associated Diagnosis Comments ANKLE 3 OR MORE VIEWS STAT 04/30/2016 18:45 EST documented in this encounter Results * ANKLE 3 OR MORE VIEWS (04/30/2016 18:45 EST) Anatomical Region Laterality Modality Other 04/30/2016 18:4 5 EST 04/30/2016 19:06 EST Narrative 04/30/2016 19:06 EST ANKLE 3 OR MORE VIEWS ??04/30/2016 6:45 PM Signs and Symptoms/Comments: ??PAIN. Findings: 3 views of the right ankle were obtained. This shows mild lateral soft tissue swelling. The ankle mortise is intact. There is no fracture or dislocation noted. There is likely a small joint space effusion present. Procedure Note Josemanuel Cuellar MD - 04/30/2016 ANKLE 3 OR MORE VIEWS 04/30/2016 6:45 PM Signs and Symptoms/Comments: PAIN. Findings: 3 views of the right ankle were obtained. This shows mild lateral soft tissue swelling. The ankle mortise is intact. There is no fracture or dislocation noted. There is likely a small joint space effusion present. Quincy Gonsalves MD IMG DIAGNOSTIC I MAGING ORDERABLES documented in this encounter Visit Diagnoses Diagnosis Sprain of right ankle, unspecified ligament, initial encounter- Primary documented in this encounter Discontinued Medications Medication Sig Discontinue Reason Start Date End Da te QUEtiapine (SEROQUEL) 200 mg tablet Take 200 mg by mouth 2 times daily. Reported on 04/30/2016 Therapy completed 04/30/2016 documented as of this encounter Care Teams Senior Accountant Analyst Relationship Specialty Start Date End Date Annette Sidhu APRN [address] [place] [phone] PCP - General 03/19/13 07/06/19 documented as of this encounter
--- OUTSIDE RECORDS SUMMARY | 2024-02-14 15:20 | XMS_ITS | Encounter Summary ---
Author Organization [facility] Address [address] [place] [address] Care Team Providers Care Higher Level Teaching Assistant Name Role Phone Annette Sidhu APRN Primary Care Provider [phone] Encounter Details Date Type Department Care Team (Late st Contact Info) Description 06/18/2014 Documentation Visit [facility] Ob[facility]etric[facility] Midwif[facility] - [address] [address] Cary Christensen RN Social History Tobacco Use [...] of this encounter Progress Notes * Cary Christensen RN - 06/18/2014 1002 EST Call from PRISCILA Davalos at [facility] who is visiting [facility] today for wound check visit.RN reports that wound is almost fully healed- there is no area to pack, and asking if gauze cover is ok. Relayed Dr. Hercules note from Guzman's last office visit this week: Recommend packing with iodoform instead of 2 x 2 as area is narrow, or Aquacel strips to promote healing. PRISCILA Davalos reiteratesthat wound is un-packable. Will use Aquacel to cover or gauze, will follow up with daily wound checks and will D/C patient when incision is fully healed. Patient is scheduled for office appointment on 06-23. documented in this encounter Plan of Treatment Not on file documented as of this encounter Goals Goal Patient Goal Type Associated Problems Recent Progress Patient-Stated? Author HEMOGLOBIN A1C < 7.0 Result Component Type 2 diabetes mellitus ([facility]) 8.7(07/07/2015 5:05 EST) No Annmarie Vigil documented as of this encounter Visit Diagnoses Not on filedocumented in this encounter Care Teams Higher Level Teaching Assistant Relationship Specialty Start Date End Date Annette Sidhu APRN [address] [place] [phone] PCP - General 03/19/13 07/06/19 documented as of this encounter
--- OUTSIDE RECORDS SUMMARY | 2024-02-14 15:20 | XMS_ITS | Encounter Summary ---
Author Organization [facility] Address [address] [place] [address] Care Team Providers Care Flow Nurse Name Role Phone Annette Sidhu APRN Primary Care Provider Encounter Details Date Type Department Care Team (Latest Contact Info) Description 10/25/2014 12:47 EDT - 10/25/2014 12:58 EDT Hospital Encounter [address] [address] WAITING, TO BE ADDED Mirian Esparza, RUI Discharge Disposition: Home or Self Care Social [...] as of this encounter Discharge Diagnoses Diagnosis 724.2 LUMBAGO[ICD-9-CM] documented in this encounter Medications at Time [...] 300 mg by mouth 2 times daily. acetaminophen (TYLENOL) 325 mg tablet Take 1-2 Tabs by mouth every 4 hours as needed for Pain. 05/16/2014 10/21/2020 cephALEXin (KEFLEX) 500 mg capsule Take 500 [...] Component Type 2 diabetes mellitus ([facility]) 8.7(07/07/2015 5:05 EST) No Annmarie Vigil documented as of this encounter Visit Diagnoses Not on filedocumented in this encounter Care Teams Flow Nurse Relationship Specialty Start Date End Date Annette Sidhu, BODY JOINER [address] [place] [phone] PCP - General 03/19/13 07/06/19 documented as of this encounter
--- OUTSIDE RECORDS SUMMARY | 2024-02-14 15:20 | XMS_ITS | Encounter Summary ---
Author Organization [facility] Address [address] [place] [address] Care Team Providers Care Visual Merchandising Manager Name Role Phone Annette Sidhu APRN Primary Care Provider [phone] Encounter Details Date Type Department Care Team ([facility] st Contact Info) Description 07/07/2015 Orders Only Non [facility] Annette Sidhu APRN [phone] [phone] Lethargy (Primary Dx); Diabetes mellitus without complication ([facility]) Social History Tobacco Use Types Packs/Day Years [...] 7.0 Result Component Type 2 diabetes mellitus ([facility]) 8.7(07/07/2015 5:05 EST) Annmarie Lopez documented as of this encounter Visit Diagnoses Diagnosis Lethargy- Primary Other malaise and fatigue Diabetes mellitus without complication ([facility]) Type II or unspecified type diabetes mellitus without mention of complication, not stated as uncontrolled documented in this encounter Care Teams Visual Merchandising Manager Relationship Specialty Start Date End Date Annette Sidhu APRN [address] [place] [phone] PCP - General 03/19/13 07/06/19 documented as of this encounter
--- OUTSIDE RECORDS SUMMARY | 2024-02-14 15:20 | XMS_ITS | Encounter Summary ---
Author Organization [facility] Address [address] [place] [address] Care Team Providers Care Wraparound Facilitator Name Role Phone Nahum Annette Kay APRN Primary Care Provider [phone] Reason for Referral * Radiology Services (3 - 10 Business Days) - Specialty Report Received Specialty Diagnoses / Procedures [facility] Referred To Contact Otolaryngology Diagnoses Recurrent sinusitis Procedures CT SINUS COMPLETE WO CONTRAST CHG CT SCAN,MAXILLOFACIAL AREA,W/O CONTRAST Peter Barber MD [address] [place] [address] Peter Barber MD [address] [place] [address] Referral ID Status Reason Start Date Expiration Date V isits Requested Visits Authorized [id number] Specialty Report Received 07/30/2017 1 1 Reason for Visit * Reason Comments Nasal Polyps * Consult (Routine) - Closed Specialty Diagnoses / Procedures Referred By [facility] Referred To Contact Otolaryngology Diagnoses Nasal polyp, unspecified Pawan Chapa I, YUAN [address] [place] [address] [address] [place] [address] Referral ID Status Reason Start Date Expiration Date Visits Re quested Visits Authorized [id number] Closed 1 1 Encounter Details Date Type Department Care Team (Latest Contact Info) Description 06/28/2017 8:30 EST Office Visit [facility] ENT- [address] [address] Peter Barber MD [address] [place] [address] Nasal vestibulitis (Primary Dx); Recurrent sinusitis; Chronic nonintractable headache, unspecified headache type Discharge Disposition: Auto Discharge Social History Tobacco [...] Sign Reading Time Taken Comments Blood Pressure 127/74 06/28/2017 0839 EST Pulse 99 06/28/2017 0839 EST Temperature - - Respiratory Rate - [...] as of this encounter Discharge Diagnoses Diagnosis J34.89 Other specified disorders of nose and nasal sinuses-J34.89[ICD-10-CM] J32.9 Chronic sinusitis, unspecified-J32.9[ICD-10-CM] R51 Headache-R51[ICD-10-CM] documented in this encounter Ordered Prescriptions Prescription Sig Dispensed Refills Start Date End Da te sulfamethoxazole-trimeth oprim (BACTRIM/C0-TRIMOXAZOLE DS) 800-160 mg per tabletIndications:Nasal vestibulitis Take 1 Tab by mouth 2 times daily for 14 days. 28 Tab 06/28/2017 07/12/2017 mupirocin (BACTROBAN) 2 % ointmentIndications:Nasa l vestibulitis Topically as directed BID, two 22 gm tubes for 30 days 2 Tube 1 06/28/2017 10/21/2020 documented in this encounter Discharge Disposition Disposition Code Departure Means Destination Auto Discharge documented in this encounter Progress Notes * Peter Barber MD - 06/28/2017 0830 EST Subjective: Patient ID: Guzman Jean is an 41 y.o. female. Chief Complaint Patient presents with ??? Nasal Polyps HPI A 41-year-old female assessed in consultation at the request of Annette Maldonado APRN, for recurring sinus problems. Guzman reports the onset of recurrent sinusitis as a teenager or young adult. Initially, she was clear between episodes. Her typical presentation for acute sinusitis would include abrupt onset of bifrontal and midfacial pain. She described this as a pressure, progressing to throbbing of moderate severity 5/10 . Frequency every other month. Duration 2 to 3 weeks. Relief with Zithromax 3 days after starting. She reports associated symptoms of chronic fatigue, vertigo with off-balance sensation. She can typically breathe through her nose, but does feel congested. She denies any other chronic pain problems, including TMJ disorder or neck pain. She has developed a new problem with recurrent nasal infections. These are bilateral. She reports painful pustules recurring again on a monthly basis. Swabs positive for MRSA. Treatment either self-lancing and/or presentation to the ER. Antibiotics including topical mupirocin for 2 to 3 days in combination with Bactrim-DS for 7 days. She does admit to some nasal manipulation and also trims her nasal hairs with scissors, which may be traumatic. She is unaware of allergies. She has never had CT sinus imaging to confirm the presence of sinusitis. She is a diabetic, which raises suspicion for possible immunodeficiency. Patient Active Problem List Diagnosis ??? Routine history and physical examination of adult ??? Type 2 diabetes mellitus (CMS-HCC) ??? Polycystic ovaries ??? Contraceptive management ??? Insertion of (intrauterine) contraceptive device ??? Left buttock pain ??? Left hip pain ??? Low back pain ??? Pain of left thigh ??? Hyperlipidemia ??? Brachial plexus lesions ??? Shoulder pain ??? Pain in joint, pelvic region and thigh ??? Suicidal ideation ??? Insulin overdose ??? Depression ??? Episodic mood disorder (CMS-HCC) ??? Suicide attempt by drug ingestion (CMS-HCC) ??? Previous delivery, antepartum condition or complication [...] seroma, ??? Chronic left SI joint pain ??? Nasal vestibulitis ??? Recurrent sinusitis ??? Chronic nonintractable headache Past Medical History: Diagnosis Date ??? Anxiety [...] Paternal Grandmother ??? Diabetes Paternal Grandfather Social Social History Social History ??? Marital status: Legally Spouse name: N/A ??? Number of children: N/A ??? Years of education: N/A Occupational History ??? Not on file. Social History Main Topics ??? Smoking status: Current Every Day Smoker Packs/day: 0.50 Years: 2.00 Types: Cigarettes ??? Smokeless tobacco: Never Used ??? Alcohol use No ??? Drug use: No ??? Sexual activity: Yes Partners: Male Other Topics Concern ??? 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 Fob present and supportive. Hx of suicide attempt with insulinin past No outpatient prescriptions have been marked as taking for the 06/28/17 encounter (Office Visit) Peter Sutton MD. No Known Allergies Review of Systems Constitutional: Positive for malaise/fatigue. Negative for chills, fever and weight loss. HENT: Positive for congestion and sore throat. Negative for ear pain and hearing loss. Eyes: Negative for blurred vision, double vision and photophobia. Respiratory: Negative for cough, hemoptysis, shortness of breath and wheezing. Cardiovascular: Positive for claudication. Negative for chest pain, palpitations and leg swelling. Gastrointestinal: Positive for heartburn. Musculoskeletal: Positive for joint pain. Negative for myalgias. Skin: Negative for rash. Neurological: Negative for sensory change, focal weakness and headaches. Endo/Heme/Allergies: Positive for environmental allergies. Does not bruise/bleed easily. - See HPI Objective: BP 127/74 Pulse 99 Physical Exam A very pleasant 41-year-old female, appears her stated age. Alert, oriented and not in any acute distress. Voice is normal without hoarseness. Facial movement is full and symmetric. Both external ears, ear canals, tympanic membranes are normal without middle ear fluid. The TMJ region is nontender. Oral cavity reveals good dentition. Healthy mucous membranes. She has a moderately large tongue, grade 3 per Vargas's classification. Oropharynx is slightly narrow. She has no tonsils. No excess postnasal drainage or cobblestoning. Neck exam is clear without palpable lymphadenopathy, salivary gland hypertrophy, thyroid goiter or other neck masses. External nose midface without distortion. Anterior rhinoscopy: Midline septum. The right nasal vestibule shows some erythema base of right nasal vestibule. Midline septum. Normal turbinates. Nasal mucosa otherwise healthy. Swab obtained right naris. Assessment: 1. Chronic nasal vestibulitis. MRSA positive swabs. She likely represents a carrier. Nasal manipulation, including trimming with scissors, may be a contributing factor, causing trauma. 2. Recurrent acute sinusitis. Symptoms are suggestive, but not convincing nor confirming of this problem. Objective evidence is imperative to confirm this diagnosis in an effort to facilitate appropriate investigations and treatment. 3. Recurrent craniofacial pain may represent migraine variant. A significant percentage of patientswith migraines have concurrent ocular and/or sinonasal symptoms triggered by stimulation of the parasympathetic branch of the autonomic nervous system with resultant swelling, epiphora, sensation of midfacial swelling, nasal congestion, rhinorrhea, postnasal drainage, etc. Definitive diagnosis is deferred pending further evaluation. Associated symptom of Fatigue and vertigo would be more suggestive of migraine variant and completely inconsistent with acute sinusitis. Plan: I have reviewed my findings and impressions as outlined above. She is discharged as follows: 1. Swab right naris for assessment of MRSA carrier state. 2. Bactrim-DS 1 twice daily for 2 weeks. She is advised to avoid sun exposure. 3. Start mupirocin topically both nares twice daily for 2 months. Delivery technique demonstrated. 4. With next typical sinus infection a CT sinuses without contrast should be obtained after 10 to14 days of classical symptoms. Antibiotics should not be started until this is completed. 5. Followup deferred pending completion of CT sinus imaging. I would request that Annette Maldonado requests this at [facility]. Addendum: 07/30/2017. Reason nasal culture results. Findings; positive for MRSA. Sensitivity to tetracycline and vancomycin. Resistant to all other antibiotics including Bactrim DS. Patient will be contacted for follow-up evaluation.Peter Barber MD documented in this encounter Miscellaneous Notes * Addendum Note - Sandie Delgado RN - 07/30/2017 1047 EDTAddended by: SADNIE DELGADO on: 07/30/2017 10:47 Modules accepted: Orders documented in this encounter Plan of Treatment Scheduled Orders Name Type Priority Associated Diagnoses Orde r Schedule CT SINUS COMPLETE WO CONTRAST Imaging Routine Recurrent sinusitis Ordered: 07/30/2017 documented as of this encounter Goals Goal Patient Goal Type Associated Problems Recent Progress Patient-Stated? Author HEMOGLOBIN A1C < 7.0 Result Component Type 2 diabetes mellitus ([facility]) 8.7(07/07/2015 5:05 EST) No Annmarie Vigil documented as of this encounter Procedures Procedure Name Priority Date/Time Associated Diagnosis Comments BACTERIAL CULTURE/SMEAR Routine 06/28/2017 9:01 EST Nasal vestibulitis documented in this encounter Results * BACTERIAL CULTURE/SMEAR, OTHER (06/28/2017 9:01 EST) Gram Smear Result Few Polys 06/28/2017 12:19 [facility] Gram Smear Result No bacteria seen 06/28/2017 12:19 [facility] Result Few METHICILLIN RESISTANT STAPHYLOCOCCUS AUREUS 06/30/2017 10:02 [facility] Result Few Usual je-pharyngeal joe 06/30/2017 10:02 [facility] Specimen of unknown material (specimen) SINUS / Unknown 06/28/2017 9:01 EST 06/28/2017 10:41 EST Comment:Specimen submitted o n a flocked swab. Narrative Organism Antibiotic Method Susceptibility Few methicillin resistant staphylococcus aureus Susceptibility comment SUSCEPTIBILITY (JEN) Few methicillin resistant staphylococcus aureus Susceptibility comment SUSCEPTIBILITY (JEN) Resistant to all penicillins (including nafcillin), combinations of penicillins and beta lactamase inhibitors (eg amoxicillin clavulanic acid, ampicillin sulbactam, piperacillin tazobactam), all cephalosporins, and all carbapenems (eg meropenem and imipenem). (mecA gene product present) Few methicillin resistant staphylococcus aureus Oxacillin SUSCEPTIBILITY (JEN) Resistant Few methicillin resistant staphylococcus aureus Cefazolin SUSCEPTIBILITY (JEN) Resistant Few methicillin resistant staphylococcus aureus Vancomycin SUSCEPTIBILITY (JEN) Susceptible Few methicillin resistant staphylococcus aureus Erythromycin SUSCEPTIBILITY (JEN) Resistant Few methicillin resistant staphylococcus aureus Clindamycin SUSCEPTIBILITY (JEN) Resistant Few methicillin resistant staphylococcus aureus Ciprofloxacin SUSCEPTIBILITY (JEN) Resistant Few methicillin resistant staphylococcus aureus Tetracycline SUSCEPTIBILITY (JEN) Susceptible Few methicillin resistant staphylococcus aureus Trimethoprim-Sulfamet hoxazole SUSCEPTIBILITY (JEN) Resistant Peter Barber MD MICROBIOLOGY - GENERAL ORDERABLES [facility] [address] [place] [address] documented in this encounter Visit Diagnoses Diagnosis Nasal vestibulitis- Primary Other diseases of nasal cavity and sinuses Recurrent sinusitis Unspecified sinusitis (chronic) Chronic nonintractable headache, unspecified headache type documented in this encounter Discontinued Medications Medication Sig Discontinue Reason Start Date End Da te cyclobenzaprine (FLEXERIL) 10 mg tablet Take 10 mg by mouth 2 times daily. 06/28/2017 documented as of this encounter Historical Medications * This list may reflect changes made after this encounter. Medication Sig Dispensed Refills Start Date End Date ARIPIPRAZOLE (ABILIFY ORAL) Take by mouth. 07/07/2019 added in this encounter Additional Health Concerns Infection Onset Date Last Indicated Resolved Time MRSA Comment:IP note: risk factors - DM, obesity Pos sinus 06/30/17 M [place] 07/01/17 07/01/2017 07/01/2017 documented as of this encounter Care Teams Wraparound Facilitator Relationship Specialty Start Date End Date Annette Sidhu APRN [address] [place] [phone] PCP - General 03/19/13 07/06/19 documented as of this encounter
--- OUTSIDE RECORDS SUMMARY | 2024-02-14 15:20 | XMS_ITS | Encounter Summary ---
Author Organization [facility] Address [address] [place] [address] Care Team Providers Care Hospitality Workers Name Role Phone Annette Sidhu APRN Primary Care Provider [phone] Reason for Visit * Reason Comments Drainage from Incision Encounter Details Date Type Department Care Team (Late st Contact Info) Description 06/08/2014 14:30 EST Office Visit [facility] Obstetrics & Midwifery - [facility] [address] [place], [place] [id number] Gisela Hercules MD [address] [place] [address], [address] [place] [address] Chronic hypertension with exacerbation during in third trimester (Primary Dx); section wound seroma, Discharge Disposition: Auto Discharge Social History Tobacco [...] as of this encounter Discharge Diagnoses Diagnosis 642.03 ESSEN HYPERTEN-ANTEPART[ICD-9-CM] 674.34 OB SURG COMP NEC-POSTPAR[ICD-9-CM] documented in this encounter Discharge Disposition Disposition Code Departure Means Destination Auto Discharge documented in this encounter Progress Notes * Charity Onofre MD - 06/08/2014 1458 EST Pt without c/o. Has completed abx Temp 97 Abd: soft, NT Incision well healed with 1 cm defect on right Excellent granulation without evidence infection or necrosis Packed with gauze Continue daily VNA for packing and weekly visit Charity Onofre MD documented in this encounter Miscellaneous Notes * Assessment & Plan Note - Charity Onofre MD - 06/08/2014 1458 ESTAssociated Problem(s): section wound seroma, Excellent granualtion, no cellulitis Temp 97 here bp 140/82 Calling endo with glucose values- states are good documented in this encounter Plan of Treatment Not on file documented as of this encounter Goals Goal Patient Goal Type Associated Problems Recent Progress Patient-Stated? Author HEMOGLOBIN A1C < 7.0 Result Component Type 2 diabetes mellitus ([facility]) 8.7(07/07/2015 5:05 EST) No Annmarie Vigil documented as of this encounter Visit Diagnoses Diagnosis Chronic hypertension with exacerbation during in third trimester- Primary section wound seroma, Other complication of obstetrical surgical wounds, condition or complication documented in this encounter Care Teams Hospitality Workers Relationship Specialty Start Date End Date Sidhu, Annette M, TURRET LATHE OPERATOR [address] [place] [phone] PCP - General 03/19/13 07/06/19 documented as of this encounter
--- OUTSIDE RECORDS SUMMARY | 2024-02-14 15:20 | XMS_ITS | Encounter Summary ---
Author Organization [facility] Address [address] [place] [address] Care Team Providers Care Receiver Dispatcher Name Role Phone Annette Sidhu APRN Primary Care Provider Reason for Visit * Reason Comments Personal Problem Boil on labia x6 d ays. Using warm compresses and was able to express some fluid last night. Encounter Details Date Type Department Care Team (Late st Contact Info) Description 11/23/2015 10:30 EDT Office Visit [facility] OBGYN Services - [address] [phone] Sarita Blount MD [address] [place] [address], [address] [place] [address] Left genital labial abscess (Primary Dx) Social History Tobacco Use Types [...] Sign Reading Time Taken Comments Blood Pressure 110/68 11/23/2015 1035 EDT Pulse - - Temperature - - Respiratory Rate - - Oxygen Saturation - - Inhaled Oxygen Concentration - - Weight 82.6 kg (182 lb) 11/23/2015 1035 EDT Height 152.4 cm (5') 11/23/2015 1035 EDT Body Mass Index 35.54 11/23/2015 1035 EDT documented in this encounter Functional Status [...] Dispensed Refills Start Date End Da te sulfamethoxazole-trimethop rim (BACTRIM/C0-TRIMOXAZOLE DS) 800-160 mg per tablet Take 1 Tab by mouth every 12 hours for 7 days. 14 Tab 0 11/23/2015 11/30/2015 documented in this encounter Progress Notes * Sarita Blount MD - 11/23/2015 1108 EDT CC: left labial abscess S: 40 y.o. F with PMH significant for T2DM, recent A1C 8.7. Referred here by PCP for labial abscesspresent for 6 days. Has h/o MRSA abscess on right buttocks/groin crease in April 2015, had I&D and then bactrim. Guzman noticed this start about 6 days ago. Tender to touch. Did a warm compress/sitz bath and was able to express a small amount of white fluid from it last night. Labia was a bit larger before that, but now seems to have swollen again. No fevers or chills. Does shave, wondering if this started as an infected hair follicle. O: BP 110/68 mmHg Ht 152.4 cm (60) Wt 82.555 kg (182 lb) BMI 35.54 kg/m2 LMP 11/12/2015 ? No Gen: NAD Abd: soft, ND, NT Ext: WWP : Left labia majora indurated and erythematous with small white pinpoint punctation, which appears to be site of former drainage. Small fluctuant area palpable. No surrounding groin erythema. See I&D procedure note A/P: 40 y.o. F with T2DM and h/o MRSA abscesses now with small left vulvar abscess - I&D accomplished - instructed pt to use sitz baths at least twice daily and attempt to express any residual purulentfluid - given DM and MRSA hx, will rx bactrim DS BID x 7 days. Pt has taken in the past and has no h/o sulfa rxn. - f/u in clinic in 1 week, or sooner with any symptoms of worsening infection. If completely resolved, may cancel appointment. Sarita Blount MD 11/23/2015 11:08 documented in this encounter Procedure Notes * Sarita Blount MD - 11/23/2015 1114 EDT Procedure: Left labial abscess incision and drainage Procedures Informed consent obtained Area cleansed with betadine x 3 Analgesia achieved with 2 cc 1% lidocaine with epinephrine Area punctured with 18 g needle, and then expanded with 11 blade scalpel for 0.5 cm incision Approx 2 cc of purulent pus and fluid expressed, loculations broken up with snap Hemostasis attained Area cleansed of betadine Patient tolerated procedure well Sarita Blount MD 11/23/2015 11:15 documented in this encounter Plan of Treatment Not on file documented as of this encounter Goals Goal Patient Goal Type Associated Problems Recent Progress Patient-Stated? Author HEMOGLOBIN A1C < 7.0 Result Component Type 2 diabetes mellitus ([facility]) 8.7(07/07/2015 5:05 EST) No Annmarie Vigil documented as of this encounter Visit Diagnoses Diagnosis Left genital labial abscess- Primary Other abscess of vulva documented in this encounter Historical Medications * This list may reflect changes made after this encounter. Medication Sig Dispensed Refills Start Date End Date pioglitazone (ACTOS) 30 mg tablet Take 30 mg by mouth daily. sitaGLIPtin (JANUVIA) 100 mg tablet Take 100 mg by mouth daily. added in this encounter Care Teams Receiver Dispatcher Relationship Specialty Start Date End Date Annette Sidhu APRN [address] [place] [phone] PCP - General 03/19/13 07/06/19 documented as of this encounter
--- OUTSIDE RECORDS SUMMARY | 2024-02-14 15:20 | XMS_ITS | Encounter Summary ---
Author Organization [facility] Address [address] [place] [address] Care Team Providers Care Laundry Or Dry Cleaners Counter Clerk Name Role Phone Annette Sidhu APRN Primary Care Provider [phone] Reason for Visit * Reason Comments Post- Care Encounter Details Date Type Department Care Team (Late st Contact Info) Description 06/23/2014 14:30 EST Office Visit [facility] Obstetrics & [place] [address] Kristi Leblanc MD [address] [place] [address] Supervision of high-risk of elderly multigravida (Primary Dx) Discharge Disposition: Auto Discharge Social [...] Sign Reading Time Taken Comments Blood Pressure 144/80 06/23/2014 1429 EST Pulse - - Temperature - - Respiratory Rate - - Oxygen Saturation - - Inhaled Oxygen Concentration - - Weight 78.7 kg (173 lb 6.4 oz) 06/23/[address] Height - - Body Mass Index 33.16 05/12/2014 0948 EST documented in this encounter Functional Status [...] as of this encounter Discharge Diagnoses Diagnosis V23.82 SUPERVISION OF HIGH-RISK OF ELDERLY MULTIGRAVIDA[ICD-9-CM] documented in this encounter Discharge Disposition Disposition Code Departure Means Destination Auto Discharge documented in this encounter Progress Notes * Kristi Leblanc MD - 06/23/2014 1411 EST POST VISIT S. Doing well -- states BS well controlled. No incisional discharge. Taking labetalol 100 mg bid. O. BP 144/80 Wt 78.654 kg (173 lb 6.4 oz) LMP 08/31/2013 Incision: well healed, no erythema, no d/c. A/P: Since the incision is healed and no additional wound care is required, pt no longer requires wound care services from [facility]. Guzman will follow up with her prescription clerk and PCP for her regular care. Kristi Leblanc MD documented in this encounter Plan of Treatment Not on file documented as of this encounter Goals Goal Patient Goal Type Associated Problems Recent Progress Patient-Stated? Author HEMOGLOBIN A1C < 7.0 Result Component Type 2 diabetes mellitus ([facility]) 8.7(07/07/2015 5:05 EST) No Annmarie Vigil documented as of this encounter Visit Diagnoses Diagnosis Supervision of high-risk of elderly multigravida- Primary documented in this encounter Care Teams Laundry Or Dry Cleaners Counter Clerk Relationship Specialty Start Date End Date Annette Sidhu, GREEN PIPEFITTER [address] [place] [phone] PCP - General 03/19/13 07/06/19 documented as of this encounter
--- OUTSIDE RECORDS SUMMARY | 2024-02-14 15:20 | XMS_ITS | Encounter Summary ---
Author Organization [facility] Address [address] [place] [address] Care Team Providers Care Flaring Machine Operator Name Role Phone Annette Sidhu APRN Primary Care Provider Encounter Details Date Type Department Care Team (Late st Contact Info) Description 01/20/2017 Results Only Imaging [facility] [phone] Annette Sidhu APRN [address] [phone] Social History Tobacco Use Types [...] Component Type 2 diabetes mellitus ([facility]) 8.7(07/07/2015 5:05 EST) No Annamrie Vigil documented as of this encounter Visit Diagnoses Not on filedocumented in this encounter Care Teams Flaring Machine Operator Relationship Specialty Start Date End Date Annette Sidhu, SEWAGE PLANT ATTENDANT [address] [place] [phone] PCP - General 03/19/13 07/06/19 documented as of this encounter
--- OUTSIDE RECORDS SUMMARY | 2024-02-14 15:20 | XMS_ITS | Encounter Summary ---
Author Organization [facility] Address [address] [place] [address] Care Team Providers Care Squilgeer Name Role Phone Annette Sidhu APRN Primary Care Provider [phone] Encounter Details Date Type Department Care Team (Latest Contact Info) Description 12/20/2015 10:13 EDT - 12/20/2015 11:59 EDT Hospital Encounter [facility] [address] [place] [address] Annette Sidhu APRN [address] [place] [phone] Discharge Disposition: Home or Self Care [...] as of this encounter Discharge Diagnoses Diagnosis E87.6 HYPOKALEMIA[ICD-10-CM] documented in this encounter Medications at Time [...] Result Component Type 2 diabetes mellitus ([facility]) 8.7(07/07/2015 5:05 EST) No Annmarie Vigil documented as of this encounter Visit Diagnoses Not on filedocumented in this encounter Care Teams Squilgeer Relationship Specialty Start Date End Date Annette Sidhu APRN [address] [place] [phone] PCP - General 03/19/13 07/06/19 documented as of this encounter
--- OUTSIDE RECORDS SUMMARY | 2024-02-14 15:20 | XMS_ITS | Encounter Summary ---
Author Organization [facility] Address [address] [place] [address] Care Team Providers Care Shoemaking Cutter Name Role Phone Annette Sidhu APRN Primary Care Provider Encounter Details Date Type Department Care Team (Late st Contact Info) Description 12/20/2015 Results Only [facility] [phone] Annette Sidhu APRN [address] [phone] Social History Tobacco Use Types [...] Component Type 2 diabetes mellitus ([facility]) 8.7(07/07/2015 5:05 EST) No Annmarie Vigil documented as of this encounter Procedures Procedure Name Priority Date/Time Associated Diagnosis Comments POTASSIUM Routine 12/20/2015 19:58 EDT documented in this encounter Results * POTASSIUM (12/20/2015 19:58 EDT) Potassium 4.5 3.5 - 5.0 mEq/L 12/20/2015 21:14 EDT [facility] BLOOD SPECIMEN / Unknown 12/20/2015 19:58 EDT 12/20/2015 19:58 EDT Annette Sidhu APRN CHEMISTRY & BLOOD GA S ORDERABLES [facility] [address] [place] [address] documented in this encounter Visit Diagnoses Not on filedocumented in this encounter Care Teams Shoemaking Cutter Relationship Specialty Start Date End Date Annette Sidhu APRN [address] [place] [phone] PCP - General 03/19/13 07/06/19 documented as of this encounter
--- OUTSIDE RECORDS SUMMARY | 2024-02-14 15:20 | XMS_ITS | Encounter Summary ---
Author Organization [facility] Address [address] [place] [address] Care Team Providers Care Editor Name Role Phone Annette Sidhu APRN Primary Care Provider Reason for Referral * Consult (Routine) - Closed Specialty Diagnoses / Procedures [facility] Referred To Contact Pain Medicine Diagnoses Chronic left SI joint pain Barbara Iglesias PA-C [address] [place] [phone] [facility] [address] [facility] [place] [address] Referral ID Status Reason Start Date Expiration Date V isits Requested Visits Authorized [id number] Closed Specialty Services Required 03/18/2015 1 1 Question Answer Reason for Request: Trial medial branch block with transition to RFA of lateral branches S1-S3 and dorsal ramus of L5 left-sided Comments Chronic left-sided SI joint pain with positive fabers on physical exam. Unable to tolerate steroids due to diabetes, locations. Trial RFA for therapeutic effect Encounter Details Date Type Department Care Team (Late st Contact Info) Description 03/18/2015 Orders Only [facility] - [place] [address] [place] [address] Barbara Iglesias PA-C [address] [place] [phone] Chronic left SI joint pain (Primary Dx) Social History Tobacco Use Types [...] as of this encounter Plan of Treatment Scheduled Referrals Name Type Priority Associated Diagnoses Order Schedule AMB CONS/FOLLOW UP PAIN INTERVENTIONAL Outpatient Referral Routine Chronic left SI joint pain Ordered: 03/18/2015 documented as of this encounter Goals Goal Patient Goal Type Associated Problems Recent Progress Patient-Stated? Author HEMOGLOBIN A1C < 7.0 Result Component Type 2 diabetes mellitus ([facility]) 8.7(07/07/2015 5:05 EST) No Annmarie Vigil documented as of this encounter Visit Diagnoses Diagnosis Chronic left SI joint pain- Primary Disorders of sacrum documented in this encounter Care Teams Editor Relationship Specialty Start Date End Date Annette Sidhu APRN [address] [place] [phone] PCP - General 03/19/13 07/06/19 documented as of this encounter
--- OUTSIDE RECORDS SUMMARY | 2024-02-14 15:20 | XMS_ITS | Encounter Summary ---
Author Organization [facility] Address [address] [place] [address] Care Team Providers Care Customer Operations Specialist Name Role Phone Annette Sidhu APRN Primary Care Provider [phone] Reason for Visit * Reason Comments Wound Check Encounter Details Date Type Department Care Team (Late st Contact Info) Description 06/01/2014 11:00 EST Office Visit [facility] Ob[facility] - [address] [id number] Gisela Hercules MD [address] [place] [address], [address] [place] [phone] section wound seroma, (Primary Dx) Social History Tobacco Use Types [...] Sign Reading Time Taken Comments Blood Pressure 114/60 06/01/2014 1110 EST Pulse - - Temperature 36.4 ??C (97.5 ??F) 06/01/2014 1110 EST Respiratory Rate - - Oxygen Saturation - - Inhaled Oxygen Concentration - - Weight 77.1 kg (170 lb) 06/01/2014 1110 EST Height - - Body Mass Index 32.51 05/12/2014 0948 EST documented in this encounter [...] as of this encounter Progress Notes * Charity Onofre MD - 06/01/2014 1136 EST Pt here for problem visit for ?wound infection. Had fever yesterday but also had flu-like symptoms.In ED at outside hospital yesterday noted drainage but not erythema. Received one dose IV abx and has script for Keflex for 1 week. Eating well, feeling better. BP 114/60 Temp(Src) 36.4 ??C (97.5 ??F) (Oral) Wt 77.111 kg (170 lb) BMI 32.51 kg/m2 LMP 08/31/2013 Abd: soft, NT Incision well healed: on left about 1 cm separation with small amount of serous fluid. Tissue appears healthy with normal granulation. Probed: fascia intact, tracks only another 1-2 cm below open incision. Rest of incision: no clear areas of fluctuance Impression: Wound seroma without clear evidence of infection and good granulation tissue Plan: Daily packing with Home health nurse Weekly visit to [facility] [place] Cont oral hypoglycemics- FBS running 200- disc call end with numbers Cont keflex as prescribed Charity Onofre MD documented in this encounter Plan of Treatment Not on file documented as of this encounter Goals Goal Patient Goal Type Associated Problems Recent Progress Patient-Stated? Author HEMOGLOBIN A1C < 7.0 Result Component Type 2 diabetes mellitus ([facility]) 8.7(07/07/2015 5:05 EST) No Annmarie Vigil documented as of this encounter Visit Diagnoses Diagnosis section wound seroma, - Primary Other complication of obstetrical surgical wounds, condition or complication documented in this encounter Discontinued Medications Medication Sig Discontinue Reason Start Date End Da te HYDROmorphone (DILAUDID) 2 mg tablet Take 1-3 Tabs by mouth every 4 hours as needed for Pain. Therapy completed 05/16/2014 06/01/2014 documented as of this encounter Care Teams Customer Operations Specialist Relationship Specialty Start Date End Date Annette Sidhu APRN [address] [place] [phone] PCP - General 03/19/13 07/06/19 documented as of this encounter
--- OUTSIDE RECORDS SUMMARY | 2024-02-14 15:20 | XMS_ITS | Encounter Summary ---
Author Organization [facility] Address [address] [place] [address] Care Team Providers Care Lodge Officer Name Role Phone Annette Sidhu APRN Primary Care Provider Encounter Details Date Type Department Care Team (Late st Contact Info) Description 07/07/2015 Results Only [facility] [phone] Annette Sidhu APRN [address] [phone] Social History Tobacco Use Types [...] Component Type 2 diabetes mellitus ([facility]) 8.7(07/07/2015 5:05 EST) No Annmarie Vigil documented as of this encounter Procedures Procedure Name Priority Date/Time Associated Diagnosis Comments HOLD SST Routine 07/07/2015 6:00 EST COMPLETE BLOOD COUNT AND DIFFERENTIAL Routine 07/07/2015 5:05 EST HEMOGLOBIN A1C Routine 07/07/2015 5:05 EST documented in this encounter Results * HOLD SST (07/07/2015 6:00 EST) Hold SST Hold for further testing. Specimen will be held for 5 days. 07/07/2015 17:21 EST [facility] BLOOD SPECIMEN / Unknown 07/07/2015 6:00 EST 07/07/2015 17:13 EST Annette Sidhu APRN LAB INFO SERVICE AND SUPPORT & PHONE RESULT [facility] [address] [place] [address] * HEMOGLOBIN A1C (07/07/2015 5:05 EST) Hemoglobin A1C 8.7 % 07/08/2015 10:09 EST [facility] Comment: Reference Range: <5.7% Normal 5.7-6.4% Increased risk for diabetes =>6.5% Diagnostic for diabetes (if confirmed) The A1c goal for non adults in general is <7%. The A1c goal for selected patients may be significantly lower than 7% if this can be achieved without significant hypoglycemia or other adverse effects of treatment. Est Avg Glucose 203 mg/dl 6 10:09 EST [facility] Comment: eAG represents the A1c result expressed as average glucose in mg/dl. BLOOD SPECIMEN / Unknown 07/07/2015 5:05 EST 07/07/2015 17:13 EST Annette Sidhu EQUIPMENT MECHANIC CHEMISTRY & BLOOD GA S ORDERABLES [facility] [address] [place] [address] * (ABNORMAL) HEMAGRAM AND DIFFERENTIAL (07/07/2015 5:05 EST) WBC 13.76(H) 4.0 - 12.4 K/cmm 07/07/2015 17:37 [facility] RBC 4.33 3.86 - 5.04 M/cmm 07/07/2015 17:37 [facility] Hemoglobin 13.1 11.6 - 15.2 gm/dl 07/07/2015 17:37 [facility] HCT 37.8 34.9 - 44.4 % 07/07/2015 17:37 [facility] MCV 87 81 - 98 fl 07/07/2015 17:37 [facility] MCH 30.3 26.7 - 33.3 pg 07/07/2015 17:37 [facility] MCHC 34.7 32.1 - 35.9 gm/dl 07/07/2015 17:37 [facility] RDW-CV 12.4 11.7 - 14.6 % 07/07/2015 17:37 [facility] RDW-SD 39.7 37.6 - 50.3 fl 07/07/2015 17:37 [facility] PLT 341 141 - 377 K/cmm 07/07/2015 17:37 [facility] MPV 10.8 9.5 - 12.7 fl 07/07/2015 17:37 [facility] Neutrophils 39.0 % 07/08/2015 12:40 [facility] Lymphocytes 60.0 % 07/08/2015 12:40 [facility] Basophils 1.0 % 07/08/2015 12:40 [facility] ABS Neutrophils 5.37 2.20 - 8.85 K/cmm 07/08/2015 12:40 EST [facility] ABS Lymphs 8.25(H) 1.09 - 3.30 K/cmm 07/08/2015 12:40 [facility] ABS Basophils 0.14(H) 0.01 - 0.11 K/cmm 07/08/2015 12:40 [facility] Differential Comment Rev'd by Pathologist 07/08/2015 12:40 [facility] Type of Diff: Manual 07/08/2015 12:40 [facility] BLOOD SPECIMEN / Unknown 07/07/2015 5:05 EST 07/07/2015 17:13 EST Annette Sidhu APRN PACKAGES & DNA PROBE ORDERABLES Performing Organization Address City/State/[facility] Co de Phone Number [facility] [address] [place] [address] documented in this encounter Visit Diagnoses Not on filedocumented in this encounter Care Teams Lodge Officer Relationship Specialty Start Date End Date Annette Sidhu APRN [address] [place] [phone] PCP - General 03/19/13 07/06/19 documented as of this encounter
--- OUTSIDE RECORDS SUMMARY | 2024-02-14 15:20 | XMS_ITS | Encounter Summary ---
Author Organization [facility] Address [address] [place] [address] Care Team Providers Care Wheel Alignment Mechanic Name Role Phone Annette Sidhu APRN Primary Care Provider [phone] Encounter Details Date Type Department Care Team (Latest Contact Info) Description 10/25/2014 12:09 EDT - 10/25/2014 23:59 EDT Hospital Encounter [address] [address] [place] [address] [place] [address] Discharge Disposition: Auto Discharge Social History Tobacco [...] as of this encounter Discharge Diagnoses Diagnosis 719.48 JOINT PAIN-JOINT NEC[ICD-9-CM] documented in this encounter Medications at Time [...] Disposition Code Departure Means Destination Auto Discharge Home documented in this encounter Plan of Treatment Not on file documented as of this encounter Goals Goal Patient Goal Type Associated Problems Recent Progress Patient-Stated? Author HEMOGLOBIN A1C < 7.0 Result Component Type 2 diabetes mellitus ([facility]) 8.7(07/07/2015 5:05 EST) No Annmarie Vigil documented as of this encounter Procedures Procedure Name Priority Date/Time Associated Diagnosis Comments HLA B27 SCREEN, DNA Routine 10/25/2014 2 0:43 EDT SED RATE Routine 10/25/2014 20:43 EDT SI JOINTS 3 OR MORE VIEWS 10/25/2014 12:50 EDT documented in this encounter Results * SED. RATE:ROLA (10/25/2014 20:43 EDT) Sed. Rate Rola 4 0 - 20 mm/hr 10/25/2014 20:56 EDT [facility] BLOOD SPECIMEN / Unknown 10/25/2014 20:43 EDT 10/25/2014 20:50 EDT Roland Coe DO HEMATOLOGY & PF4 ORD ERABLES Performing Organization Address City/[facility]/[place] Co de Phone Number [facility] [address] [place] [address] * HLA B27 SCREEN, DNA (10/25/2014 20:43 EDT) HLA B27 Screen DNA HLA B27 not identified 10/28/2014 12:47 EDT [facility] Comment:Tested by PCR-RSSO BLOOD SPECIMEN / Unknown 10/25/2014 20:43 EDT 10/25/2014 20:50 EDT Roland Coe DO TISSUE TYPING ORDERA BLES Performing Organization Address City/[facility]/ZIP Co de Phone Number [facility] [address] [place] [phone] * SI JOINTS 3 OR MORE VIEWS (10/25/2014 12:50 EDT) Anatomical Region Laterality Modality Other 10/25/2014 12:5 0 EDT 10/25/2014 13:50 EDT Narrative 10/25/2014 13:50 EDT SI JOINTS 3 OR MORE VIEWS ??10/25/2014 12:50 PM Signs and Symptoms/Comments: ??Left greater than right sacroiliac joint pain. Comparison: Pelvic radiographs from 08/20/2011 Findings: AP and oblique views of the sacroiliac joints were obtained. The sacroiliac joint spaces are symmetric and without significant narrowing. There may be slightly increased subchondral sclerosis and inferior tiny osteophytes involving the left sacroiliac joint. The remainder the visible pelvis, sacrum, and lower lumbar spine are unremarkable. Impression: Minimal degenerative changes of the left sacroiliac joint ?? I have personally reviewed the images and the above interpretation and agree with the findings. Procedure Note Marcin Villareal MD - 10/25/2014 SI JOINTS 3 OR MORE VIEWS 10/25/2014 12:50 PM Signs and Symptoms/Comments: Left greater than right sacroiliac joint pain. Comparison: Pelvic radiographs from 08/20/2011 Findings: AP and oblique views of the sacroiliac joints were obtained. The sacroiliac joint spaces are symmetric and without significant narrowing. There may be slightly increased subchondral sclerosis and inferior tiny osteophytes involving the left sacroiliac joint. The remainder the visible pelvis, sacrum, and lower lumbar spine are unremarkable. Impression: Minimal degenerative changes of the left sacroiliac joint I have personally reviewed the images and the above interpretation and agree with the findings. Roland MEJIA DIAGNOSTIC IMAGI NG ORDERABLES documented in this encounter Visit Diagnoses Not on filedocumented in this encounter Care Teams Wheel Alignment Mechanic Relationship Specialty Start Date End Date Annette Sidhu APRN [address] [place] [phone] PCP - General 03/19/13 07/06/19 documented as of this encounter
--- OUTSIDE RECORDS SUMMARY | 2024-02-14 15:20 | XMS_ITS | Encounter Summary ---
Author Organization [facility] Address [address] [place] [address] Care Team Providers Care Packaging Designer Name Role Phone Bhargav Mccarty APRN Primary Care Provider [phone] Encounter Details Date Type Department Care Team (Latest Contact Info) Description 12/02/2014 10:08 EDT - 12/02/2014 23:59 EDT Hospital Encounter [facility] [address] [place] [address] Bhargav Mccarty APRN [address] [facility] [address] [place] [phone] Discharge Disposition: Home or Self [...] as of this encounter Discharge Diagnoses Diagnosis 780.60 FEVER, UNSPECIFIED[ICD-9-CM] 786.2 COUGH[ICD-9-CM] documented in this encounter Medications at Time [...] Code Departure Means Destination Home or Self Senior Living documented in this encounter Plan of Treatment Not on file documented as of this encounter Goals Goal Patient Goal Type Associated Problems Recent Progress Patient-Stated? Author HEMOGLOBIN A1C < 7.0 Result Component Type 2 diabetes mellitus ([facility]) 8.7(07/07/2015 5:05 EST) No Musa Annmarie documented as of this encounter Procedures Procedure Name Priority Date/Time Associated Diagnosis Comments CHEST PA AND LATERAL 12/02/2014 10:29 EDT documented in this encounter Results * CHEST PA AND LATERAL (12/02/2014 10:29 EDT) Anatomical Region Laterality Modality Other 12/02/2014 10:2 9 EDT 12/02/2014 11:38 EDT Narrative 12/02/2014 11:38 EDT CHEST PA AND LATERAL ??12/02/2014 10:29 AM Signs and Symptoms/Comments: ?? cough and fever Comparison: ??None Findings: ??Patchy airspace consolidation in the anterior segment of the right upper lobe is consistent with pneumonia. The lungs are otherwise clear and there is no evidence of pleural fluid. The cardiac silhouette and pulmonary vascularity are normal. The skeleton is unremarkable for age. Impression: Right upper lobe airspace disease consistent with pneumonia The case was reviewed with the triage nurse for BHARGAV MCCARTY APRN at the time of dictation. Procedure Note Marino Lee MD - 12/02/2014 CHEST PA AND LATERAL 12/02/2014 10:29 AM Signs and Symptoms/Comments: cough and fever Comparison: None Findings: Patchy airspace consolidation in the anterior segment of the right upper lobe is consistent with pneumonia. The lungs are otherwise clear and there is no evidence of pleural fluid. The cardiac silhouette and pulmonary vascularity are normal. The skeleton is unremarkable for age. Impression: Right upper lobe airspace disease consistent with pneumonia The case was reviewed with the triage nurse for BHARGAV MCCARTY APRN at the time of dictation. Bhargav Mccarty APRN IMG DIAGNOSTIC IMAGI NG ORDERABLES documented in this encounter Visit Diagnoses Not on filedocumented in this encounter Care Teams Packaging Designer Relationship Specialty Start Date End Date Bhargav Mccarty APRN [address] [place] [phone] PCP - General 03/19/13 07/06/19 documented as of this encounter
--- OUTSIDE RECORDS SUMMARY | 2024-02-14 15:20 | XMS_ITS | Encounter Summary ---
Author Organization [facility] Address [address] [place] [address] Care Team Providers Care Social Media Campaign Manager Name Role Phone Nahum Annette Kay APRN Primary Care Provider [phone] Encounter Details Date Type Department Care Team (Late st Contact Info) Description 08/29/2016 Results Only [facility] [[email or web address] [phone] Josselin Fuentes MD [address] [place] [address] Social History Tobacco Use Types Packs/Day Years [...] Type 2 diabetes mellitus ([facility]) 8.7(07/07/2015 5:05 EST) No Annmarie Vigil documented as of this encounter Procedures Procedure Name Priority Date/Time Associated Diagnosis Comments PAP TEST- RESULT ONLY Routine 08/29/2016 0:00 EDT documented in this encounter Results * PAP TEST- RESULT ONLY (08/29/2016 0:00 EDT) Pathology Report: CYTOPATHOLOGY REPORT Reports generated via electronic interface contain original data; however they are lacking the format of the original report. Caution should be taken when reading/interpreti ng unformatted reports. Name: ? HILDA CROWLEY ? Accession #: ? [id number] ? : ? 1975 (Age: 41) ??F ?Collect Date: ? 08/29/2016 ? Location: ? [facility] ? Receive Date: ? 08/30/2016 ? Provider: JOSSELIN FUENTES MD Copy to: ? Final Report SPECIMEN ADEQUACY ? Satisfactory for Evaluation - transformation zone component absent GENERAL CATEGORIZATION ? Negative for Intraepithelial Lesion or Malignancy ?? Specimen/Source: ??Pap Test, Cervix/Endocervix, ThinPrep Imaging System with manual evaluation Document reviewed and electronically signed by: ? KHUSHBU Gallego(ASCP) ? Report ??Date: 09/07/2016 15:37 HPV with Pap Test ? Date Ordered: ? 09/07/2016 ? Status: ?? Signed Out ?Date Complete: ? 09/10/2016 ? By: ??System Interface ? Date Reported: ? 09/10/2016 ? Interpretation RESULT: Negative for HPV. No E6 or E7 mRNA is detected from HPV types 16,18,31,33,35, 39,45,51,52,56,58, 59,66, and 68 by gate operator mediated amplification. Comments Document reviewed and electronically signed by: ? System Interface ? Report date: 09/10/2016 By the signature above, the attending physician certifies that he/she has personally conducted a gross and/or microscopic examination of the described specimens and rendered or confirmed the above diagnosis. End of Report [facility] 08/29/2016 08/30/2016 Josselin Fuentes MD PATHOLOGY OR DERABLES Performing Organization Address City/State/[facility] Co de Phone Number [facility] [address] [place] [address] documented in this encounter Visit Diagnoses Not on filedocumented in this encounter Care Teams Social Media Campaign Manager Relationship Specialty Start Date End Date Annette Sidhu, WIRE TWISTER [address] [place] [phone] PCP - General 03/19/13 07/06/19 documented as of this encounter
--- OUTSIDE RECORDS SUMMARY | 2024-02-14 15:21 | XMS_ITS | Encounter Summary ---
Author Organization [facility] Address [address] [place] [address] Care Team Providers Care Dockworker Name Role Phone Nahum Annette Kay APRN Primary Care Provider [phone] Reason for Referral * (Routine) - Closed Specialty Diagnoses / Procedures Referred By Contac t Referred To Contact Anna Corley MD [address] [place] [phone] Referral ID Status Reason Start Date Expiration Date V isits Requested Visits Authorized [id number] Closed Specialty Services Required 04/27/2014 1 1 Comments See your HIGH RISK reference investigator on Saturday at 10:[address] Friend. An appointment has been made. * (Routine) - Closed Specialty Diagnoses / Procedures Referred By Contac [place] [address] [place] [id number] Referral ID Status Reason Start Date Expiration Date V isits Requested Visits Authorized [id number] Closed Specialty Services Required 04/27/2014 1 1 Encounter Details Date Type Department Care Team (Late st Contact Info) Description 04/23/2014 21:14 EST - 04/27/2014 16:35 EST Hospital Encounter [facility]/Baby [address] [place], [place] [id number] Elke Stevenson MD [address] [id number] Haim Méndez MD [address] [phone] Type 2 diabetes mellitus (CMS-HCC) (HCC-CMS) (Primary Dx); Chronic hypertension with exacerbation during in third trimester; Diabetes mellitus, antepartum(648.03); Non-reassuring heart tones complicating , antepartum; Type II or unspecified type diabetes mellitus without mention of complication, uncontrolled; Abnormal maternal glucose tolerance, antepartum Discharge Disposition: Home or Self Care Social History Tobacco Use Types Packs/Day Years Used Date Smoking Tobacco: Every Day Cigarettes 0.5 2 Smokeless Tobacco: Never Alcohol Use Standard Drinks/Week Comments No 0 (1 standard drink = 0.6 oz pur e alcohol) Comments Yes Sex and Gender Information Value Date Recorded Sex Assigned at Not on file Gender Identity Not on file Sexual Orientation Not on file documented as of this encounter Last Filed Vital Signs Vital Sign Reading Time Taken Comments Blood Pressure 127/66 04/27/2014 0914 EST Pulse 99 04/25/2014 0915 EST Temperature 36.8 ??C (98.2 ??F) 04/27/2014 0810 EST Respiratory Rate 18 04/27/2014 0810 EST Oxygen Saturation 99% 04/27/2014 0810 EST Inhaled Oxygen Concentration - - Weight 86.2 kg (190 lb) 04/24/[address] visit Height 152.4 cm (5') 04/24/2014 0827 EST Body Mass Index 37.11 04/24/2014 0827 EST documented in this encounter Functional Status Functional Status Response Date of Assess ment Are you deaf or do you have serious difficulty h earing? No 04/24/2014 Are you blind or do you have serious difficulty seeing, even when wearing glasses? No 04/24/2014 Do you have serious difficul ty walking or climbing stairs? (5 years old or older) No 04/24/2014 Do you have difficulty dress ing or bathing? (5 years old or older) No 04/24/2014 Because of a physical, menta l, or emotional condition, do you have difficulty doing errands alone such as visiting a doctor's office or shopping? (15 years old or older) No 04/24/2014 Cognitive Status Response Date of Assessm ent Because of a physical, menta l, or emotional condition, do you have serious difficulty concentrating, remembering, or making decisions? (5 years old or older) Yes 04/24/2014 documented as of this encounter Discharge Summaries * Anna Fernandez MD - 04/26/2014 0672 EST Discharge Summary Chief Complaint/Reason for Admission: Elevated BPs, uncontrolled Type II diabetes Principal/Final Diagnosis: Uncontrolled diabetes Principal Procedure: None Condition at Discharge: Stable Assessment at Discharge: Good Hospital Course: Guzman Jean is a 38 yo w/ a past medical history of Type II DM and cHTN who initially presented at 33w4d after being found to have a BP of 156/78 in [facility] clinic and wassent up for a pre-eclamptic workup. She also had struggled with poor control of diabetes. On admission, she was started on 200 mg labetalol BID for severe range pressures. A urine protein to creatinin e ratio at that time was found to be 0.6; however, since she had no baseline 24 hr urine protein, it was thought that this was falsely elevated in the setting of poorly controlled diabetes. A 24 hoururine protein was performed on admission which was 550 mg. However, it was thought that this was elevated due to poorly controlled diabetes, and not pre-eclampsia. This was largely because the patient remained normotensive on labetalol 200 mg BID, and had normal HELLP labs. However, she remained inhouse for monitoring of glycemic control. As far as the patient's diabetes, she was continued on her home lantus dose of 35 U, with aspart with meals. Due to ongoing issues with her glycemic control, she was then switched to 30 NPH in the morning, with 15 U novolog in the morning, 12 U with dinner, and 12 U at night. She continued tohave difficult glycemic control, and so endocrinology was consulted, who recommended that she be changed to 15 U lantus along with 15 U novolog with meals in addition to a sliding scale. The patient was then discharged on HD5 on 20 U of lantus, with 15 U novolog with meals. Relevant Studies at Discharge: none Last Lab Results at Discharge: Ref. Range 04/24/2014 21:30 Tot Prot,24h Calc. Latest Range: <150 mg/24hr 550 (H) Discharge Summary Completed: yes documented in this encounter Medications at Time of Discharge Medication Sig Dispensed Refills Start Date End Date GABAPENTIN (NEURONTIN ORAL) Take 1,200 mg by mouth daily. ranitidine (ZANTAC) 150 mg tablet Take 300 mg by mouth 2 times daily. acetaminophen (TYLENOL) 325 mg tablet Take 2 Tabs by mouth every 4 hours as needed for Pain. 04/27/2014 05/16/2014 cyclobenzaprine (FLEXERIL) 10 mg tablet Take 10 mg by mouth 2 times daily. 06/28/2017 dexmethylphenidate (FOCALIN) 10 mg tablet Take 10 mg by mouth 3 times daily. 10/21/2020 glucagon (GLUCAGON EMERGENCY KIT, HUMAN,) 1 mg emergency injection kit Inject 1 mg into the muscle once as needed for up to 1 dose for Low Blood Sugar. 1 Kit 2 05/08/2014 10/21/2020 insulin aspart (NOVOLOG FLEXPEN) 100 unit/mL injectable pen Inject 15 Units into the skin 3 times daily with meals. 1 Box 1 04/27/2014 05/16/2014 insulin glargine (LANTUS SOLOSTAR) 100 unit/mL (3 mL) injection pen Inject 20 Units into the skin once daily. 1 Box 1 04/27/2014 05/16/2014 insulin pen needles 31G x 5/16 BD UltraFine Short. Will be using 4 pen needles per day at this point.. 100 Each 3 04/27/2014 05/16/2014 labetalol (NORMODYNE) 200 mg tablet Take 1 Tab by mouth every 12 hours. 60 Tab 2 04/27/2014 05/16/2014 multivitamin vit-iron fumarate-FA (STUARTNATAL) 27 mg iron- 1 mg tablet tablet Take 1 Tab by mouth daily. 90 Tab 2 12/31/2013 11/14/2015 QUEtiapine (SEROQUEL) 200 mg tablet Take 200 mg by mouth 2 times daily. Reported on 04/30/2016 04/30/2016 terconazole (TERAZOL 3) [address] 1 Suppository vaginally daily. 3 Suppository 1 04/09/2014 05/07/2014 documented as of this encounter Ordered Prescriptions Prescription Sig Dispensed Refills Start Date End Da te labetalol (NORMODYNE) 200 mg tablet Take 1 Tab by mouth every 12 hours. 60 Tab 2 04/27/2014 05/16/2014 insulin pen needles 31G x 5/16 BD UltraFine Short. Will be using 4 pen needles per day at this point.. 100 Each 3 04/27/2014 05/16/2014 insulin glargine (LANTUS SOLOSTAR) 100 unit/mL (3 mL) injection pen Inject 20 Units into the skin once daily. 1 Box 1 04/27/2014 05/16/2014 insulin aspart (NOVOLOG FLEXPEN) 100 unit/mL injectable pen Inject 15 Units into the skin 3 times daily with meals. 1 Box 1 04/27/2014 05/16/2014 acetaminophen (TYLENOL) 325 mg tablet Take 2 Tabs by mouth every 4 hours as needed for Pain. 04/27/2014 05/16/2014 documented in this encounter Discharge Disposition Disposition Code Departure Means Destination Home or Self Care documented in this encounter Progress Notes * Eduard Pineda MD - 04/27/2014 0908 EST Endocrine Inpatient Progress Note Admit Date: 04/23/2014 Date of Service: 04/27/2014 Requesting Physician: Dr Méndez Specialty Completing Consult: Endocrine Reason for Consult: Type 2 diabetes, poorly controlled BS for inpatient diabetes management HPI: 38 y.o. at 34w1d with h/o depression, chronic hypertension and poorly- controlled T2DM, admitted for evaluation of increasing blood pressures and for better control of blood sugars. Patient candy known diabetic and last saw us in clinic in January and given she had a recent episode at the time of a suicide attempt with an insulin overdose she was prescribed metformin 1000 mg BID and we had added glyburide 5 mg bid. She did not keep her appointment in February and last week reported BS numbers which were poorly controlled and she was started on 35 units of Lantus and 8 of Novolog with meals which she reports she took for 3 days prior to coming in on Saturday but BS were not significantlyimproved. Reports fasting BS in the 200's and post meal BS's in the 300's. She was diagnosed with superimposed preeclampsia (without severe features) based on blood pressuresand a 24 hour urine collected over the weekend. Her blood pressures are well-controlled on labetalol 200 BID. A repeat is planned at 27 weeks. Yesterday blood sugars were somewhat improved on lantus 15 units at night and Novolog at 15 units with meals. Her dose of lantus was increased to 20u last night. Diabetes HX: Obstetric History: 4 Para 2 LMP 08/31/13 Expected delivery date 06/08/14 Hypertension with current yes 24 hour urine protein 73 Previous pregnancies Had gestational diabetes with first and second pregnancies- was on metformin for the first and baby weighed 9 pounds, second child weighed 7.5 pounds - born premature and she was on insulin at the time Weight of previous children at As mentioned above / Vaginal Deliv. c sect Pre- weight Not known Previous Hx of PCOS, IGT, IFG, GDM GDM with ist and requiring insulin with second Diabetes History: Diagnosed in: ?OGTT Pre-preg treatment Metformin (?suicidal ideation with insulin) A1c at conception Not known, HBA1C of 7.4 in 10/10 Home monitoring Fastin hour post breakfast 2 hour post lunch 2 hour post supper Associated macro, micro vascular complications none Last eye exam ? Family history of diabetes Grand parents PMH PSH Past Medical History Diagnosis Date ??? Type [...] ??? Cholecystectomy 11/25/2009 Dr. Mendez ??? section 1998,2008 times 2 ??? Hip arthroscopy 2012 Social History Family History History Substance Use Topics ??? Smoking status: Current Every Day Smoker -- 0.50 packs/day for 2 years Types: Cigarettes ??? Smokeless tobacco: Never Used ??? Alcohol Use: No Family History Problem Relation Age of Onset ??? Cancer Maternal Aunt breast cancer ??? Cancer Maternal Grandmother breats cancer ??? Diabetes Paternal Grandmother ??? Diabetes Paternal Grandfather Medications Current Facility-Administered Medications Medication Route Frequency ??? acetaminophen (TYLENOL) tablet 650 mg oral Q4H PRN ??? calcium carbonate (TUMS) 200 mg calcium (500 mg) per chewable tablet tablet,chewable 1-2 Tab oral QID PRN ??? cyclobenzaprine (FLEXERIL) tablet 10 mg oral DAILY ??? cyclobenzaprine (FLEXERIL) tablet 20 mg oral QHS ??? dexmethylphenidate (FOCALIN) tablet 10 mg oral USER SPECIFIED ??? dextrose 50 % solution 12.5 g intravenous PRN ??? docusate sodium (COLACE) capsule 100 mg oral BID PRN ??? gabapentin (NEURONTIN) capsule 1,500 mg oral USER SPECIFIED ??? glucagon (human recombinant) injection 1 mg intramuscular PRN ??? insulin aspart (NOVOLOG FLEXPEN) injection 15 Units subcutaneous TID WC ??? insulin aspart (NOVOLOG FLEXPEN) injection subcutaneous TID WC ??? insulin glargine (LANTUS SOLOSTAR) injection pen 20 Units subcutaneous DAILY L.A. INSULIN ??? labetalol (NORMODYNE) tablet 200 mg oral Q12H ??? multivitamin vit-iron fumarate-FA (STUARTNATAL) 27 mg iron- 1 mg tablet 1 Tab oral DAILY ??? prochlorperazine (COMPAZINE) tablet 5 mg oral Q6H PRN ??? QUEtiapine (SEROQUEL) tablet 200 mg oral QHS ??? ranitidine (ZANTAC) tablet 300 mg oral BID ??? sodium chloride 0.9 % flush 3 mL intravenous Q8H Allergies No Known Allergies Review of Systems: Pertinent items are noted in Subjective/HPI Objective/Physical Exam: VS: BP: 145/80 mmHg (PRISCILA Martinez notified) Pulse: 99 Heart Rate: 103 BPM Resp: 18 Temp: 36.8 ??C (98.2 ??F) SpO2: 99 % Exam: Respiratory: Clear to auscultation bilaterally Cardiovascular: Auscultation Heart: no S3, no S4 Extremities: Pedal Pulses: Symmetric distal pulses Gastrointestinal: Examination Abdomen: gravid Musculoskeletal: Inspection/Palpation Digits/Nails: no abnormalities Data Review: Labs: Recent Labs 04/25/14 1419 04/25/14 1812 04/25/14 2118 04/25/14 2343 04/26/14 0641 04/26/14 0921 04/26/14 1436 04/26/14 1721 04/26/14 2013 04/26/14 2115 04/27/14 0018 04/27/14 0705 GLUCOSEFINGE 149* 143* 105* 128* 122* 208* 116* 195* 111* 132* 115* 121* Lab Results Component Value Date WBC 17.08* 04/24/2014 RBC 3.99 04/24/2014 HGB 12.7 04/24/2014 HCT 37.3 04/24/2014 MCV 93 04/24/2014 MCH 31.8 04/24/2014 MCHC 34.0 04/24/2014 PLT 326* 04/24/2014 NEUTROABS 13.03* 04/23/2014 SEDRATE 10 07/13/2010 Lab Results Component Value Date SERGLU 196* 04/14/2013 NA 134* 12/31/2013 K 3.5 12/31/2013 CL 102 12/31/2013 CO2 18* 12/31/2013 BUN 7* 04/23/2014 CREATININE 0.40* 04/24/2014 CALCIUM 9.5 04/14/2013 CALCGFR >60 04/24/2014 ALKPHOS 71 04/14/2013 TBIL 0.5 04/14/2013 AST 13* 04/24/2014 ALT 21 04/24/2014 LABALBU 4.5 04/14/2013 TP 6.9 04/14/2013 Other Studies: N/A Assessment: 38 y.o. at 34w1d with h/o depression, chronic hypertension and poorly controlled T2DM, admitted with new diagnosis of superimposed preeclampsia and for control of blood sugars after recent transition from oral medications to insulin. Patient recently started on lantus and novolog as OP for her poorly controlled BS. BS significantly better controlled yesterday on 20u lantus and 15u Novologwith meals. Continue current insulin regimen. Recommendations: 1]Continue meal time novolog to 15 units. 2] Continue 20u of lantus qHS. 3] Goal BS <120 post meals and fasting<95 4] Will follow with you. 5] Fructosamine level pending. 6] She is safe for discharge from an endocrine standpoint. She should bring her blood sugars for Dr. Friend to review at her appointment on Saturday, 04/30. We discussed we anticipate further adjustments will need to be made in over the next 1-2 weeks until delivery. Iraida Lerner MD 04/27/2014 9:09 Attestation statement: I saw and examined the patient with the resident/fellow. I agree with the findings and plan of care documented in the resident's/fellow's note. * Anna Fernandez MD - 04/27/2014 0640 EST OB Antepartum Progress Note CC: IUP @ 34w1d, T2DM, admitted with elevated BP S: Doing okay. Feeling contractions again in the same place and yesterday and they are uncomfortable. Declines cervical exam. Denies any LOF or VB. +FM. Otherwise feeling well. O: Blood pressure 117/64, pulse 99, temperature 36.7 ??C (98.1 ??F), temperature source Temporal, resp. rate 18, height 152.4 cm (60), weight 86.183 kg (190 lb), last menstrual period 08/31/2013, SpO2 98.00%. No intake or output data in the 24 hours ending 04/27/14 0640 Exam: Gen: appears slightly uncomfortable Abd: soft, gravid uterus, non-tender to palpation A/P: 38 y.o. at 34w1d here with CHTN and poorly controlled T2DM. AVSS. *cHTN: Had not been on antihypertensives during this . Started on 200mg labetalol BID on admission. Has been normotensive since. - HELLP labs wnl on admission. Repeat PRN. - urine P:C elevated at 0.6. 24hr urine protein 550 mg, however, no baseline and patient has a history of Type II DM. *T2DM: Very poor control this . Changed insulin regimen to NPH recently; however, given continued poor control, endocrine consulted. Per endo, will change back to Lantus. Regimen will be 15Ulantus qHS, 15U novolog with meals and SSI. Fingersticks improving. - CC diet . - AM fasting, preprandial and 2h PP FS *H/o C/S: Anterior placenta. Desires scheduled repeat - Tubal papers signed *FWB: Last EFW 2064g (69%), transverse on 04/09 - continue q3-4 wk growth scans, with weekly BPP *Depression: H/o suicide attempt w/ insulin OD - continue home antidepressant regimen - Tubal papers signed *Global - BR w/ bathroom priv - GBS pending Anna Fernandez MD 04/27/2014 6:40 * Khalida Quiñones MD - 04/26/2014 1445 EST Pt evaluative on L+D for persistent cnts on NST. Over the past 2 hrs , the ctns have spaced out. Discussed care plan: 1. Insulin for glucose control. PT states that she is not as risk on this medication. She has met with her therapist and will be having frequent visits where this issue will be discussed. She states that she has no suicidal ideations at this pt. 2. BP Off all meds since 20 weeks. BP's have not been labile while in the hospital. 24 hr urine > 300 but we have no baseline value. Due to noncompliance. Plans to continue to work . Hopefully , she will be ready for discharge in am with 2x wk monitoring and weekly MFMS/endo Visits 15 min spent in Counseling about these issues. * Santa Williamson MD - 04/26/2014 1436 EST R4 Antepartum note - Late Entry from 1330 Patient brought upstairs due to concern for increasing contractions, both in frequency and intensity. Patient reported that she felt her contractions had spaced out, but she was still having significant bilateral pelvic pressure. Blood pressure 129/65, pulse 99, temperature 35.9 ??C (96.6 ??F), temperature source Tympanic, resp. rate 18, height 152.4 cm (60), weight 86.183 kg (190 lb), last menstrual period 08/31/2013, SpO2 100.00%. EFM: baseline 150, mod oneal, + accels, no decels; cat 1 TOCO: flat SVE: 1cm ext, closed internally/long, high, soft Cervical exam and monitoring reassuring, not in labor. Will transfer back to [facility] for ongoing glucose control. Patient seen with Dr. Ishmael Williamson MD 04/26/2014 15:27 * Rox Floyd, RN - 04/26/2014 1246 EST At 1230, pt placed in rm# 10, here for monitoring, reports ctxs that are 5/10 on pain scale. At 1240, EFM on At 1326, Dr Quiñones and Dr Williamson at bedside; sve by Dr Williamson ;ctxs spacing out;plan to transfer back to [facility] At 1435, EFM off; FSBG 116, novolog insuling given At 1445, transfer back to [facility] via w/c * Jessica Mendieta - 04/26/2014 1241 EST S: Patient not feeling well this morning. States she received the carb info from room service and declines need for any additional nutrition information. Patient reports having access to RD via Endocrine Clinic. O: Labs-Gluc 208, A1C 7 05/16/13-Vit D 14.5 Meds include aspart/lantus, labetalol, PNV Ht-152.4 cm Wt-86.2 kg Diet-CCD A: Patient screened for education needs due to and Type 2 DM. Patient reports having seenRD in the past and declines offer of additional education at this time. Vitamin D lab consistent with Vitamin D insufficiency earlier this year. Consider re-checking level vs starting empiric supplementation of 2000 units daily. P: Patient provided carb info for menu items; Defer additional education per pt Consider re-check Vitamin D level vs start supplementation of 2000 units Vitamin D3 po daily Monitor po intake and blood sugars Shadia Mendieta, RD #[id number] * Melissa Singh RN - 04/26/2014 1111 EST Case Management Assessment & Initial Discharge Plan Working Diagnosis/Presenting Problem: IUP @ 34w0d, T2DM, admitted with elevated BP Living Arrangements: Ryan states that she lives alone in [place]. She has two older children ages 15 and 6 yrs that she has shared custody with their father and they split their time between her home and their fathers. Ryan states that FOB of this child is not involved, she does have a boyfriend whom she states is supportive. 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 Shestates she has notified her healthcare manager re time off from work, she will also get in touch with HR. Social Supports: Pt states that her family and her current boyfriend are supportive. She states that she does feel safe in her current relationship. Existing Community Resources: WIC and [employer]. Advanced Directives/DPOA: n/a Cultural/Spiritual Needs: n/a Insurance/Financial Needs: Commercial Transportation Needs: Pt states her boyfriend will provide her transportation at time of d/c. Patient Goals: Pt states she is hoping for d/c possibly tomorrow. Assessment and Discharge Care Plan: Pt aware of FAVORS and parking validation. Pt does not have anyfurther questions or concerns at this time. Melissa Singh RN/CM Pager [phone] * Eduard Pineda MD - 04/26/2014 0846 EST Endocrine Inpatient Progress Note Admit Date: 04/23/2014 Date of Service: 04/26/2014 Requesting Physician: Dr Méndez Specialty Completing Consult: Endocrine Reason for Consult: Type 2 diabetes, poorly controlled BS for inpatient diabetes manaement HPI: 38 y.o. at 34w with h/o depression here with poorly controlled T2DM and hypertension admitted for control of the same. Patient is a known diabetic and last saw us in clinic in January and given she had a recent episode at the time of a suicide attempt with an insulin overdose she was prescribed metformin 1000 mg BID and we had added glyburide 5 mg bid. She did not keep her appointment in February and last week reported BS numbers which were poorly controlled and she was started on 35 units of Lantus and 8 of Novolog with meals which she reports she took for 3 days prior to coming in on Saturday but BS were not significantly improved. Reports fasting BS in the 200's and post meal BS's in the 300's. Received NPH 35 units in am and lantus 15 units at night with good improvement in BS. Novolog at 15units with meals. Diabetes HX: Obstetric History: 4 Para 2 LMP 08/31/13 Expected delivery date 06/08/14 Hypertension with current yes 24 hour urine protein 73 Previous pregnancies Had gestational diabetes with first and second pregnancies- was on metformin for the first and baby weighed 9 pounds, second child weighed 7.5 pounds - born premature and she was on insulin at the time Weight of previous children at As mentioned above / Vaginal Deliv. c sect Pre- weight Not known Previous Hx of PCOS, IGT, IFG, GDM GDM with ist and requiring insulin with second Diabetes History: Diagnosed in: ?OGTT Pre-preg treatment Metformin (?suicidal ideation with insulin) A1c at conception Not known, HBA1C of 7.4 in 10/10 Home monitoring Fastin hour post breakfast 2 hour post lunch 2 hour post supper Associated macro, micro vascular complications none Last eye exam ? Family history of diabetes Grand parents PMH PSH Past Medical History Diagnosis Date ??? Type [...] Surgical History Procedure Laterality Date ??? Tonsillectomy 2001 ??? Cholecystectomy 11/25/2009 Dr. Mendez ??? section 1998,2008 times 2 ??? Hip arthroscopy 2012 Social History Family History History Substance Use Topics ??? Smoking status: Current Every Day Smoker -- 0.50 packs/day for 2 years Types: Cigarettes ??? Smokeless tobacco: Never Used ??? Alcohol Use: No Family History Problem Relation Age of Onset ??? Cancer Maternal Aunt breast cancer ??? Cancer Maternal Grandmother breats cancer ??? Diabetes Paternal Grandmother ??? Diabetes Paternal Grandfather Medications Current Facility-Administered Medications Medication Route Frequency ??? acetaminophen (TYLENOL) tablet 650 mg oral Q4H PRN ??? calcium carbonate (TUMS) 200 mg calcium (500 mg) per chewable tablet tablet,chewable 1-2 Tab oral QID PRN ??? cyclobenzaprine (FLEXERIL) tablet 10 mg oral DAILY ??? cyclobenzaprine (FLEXERIL) tablet 20 mg oral QHS ??? dexmethylphenidate (FOCALIN) tablet 10 mg oral USER SPECIFIED ??? dextrose 50 % solution 12.5 g intravenous PRN ??? docusate sodium (COLACE) capsule 100 mg oral BID PRN ??? gabapentin (NEURONTIN) capsule 1,500 mg oral USER SPECIFIED ??? glucagon (human recombinant) injection 1 mg intramuscular PRN ??? insulin aspart (NOVOLOG FLEXPEN) injection 15 Units subcutaneous TID WC ??? insulin aspart (NOVOLOG FLEXPEN) injection subcutaneous TID WC ??? insulin glargine (LANTUS SOLOSTAR) injection pen 15 Units subcutaneous DAILY L.A. INSULIN ??? labetalol (NORMODYNE) tablet 200 mg oral Q12H ??? multivitamin vit-iron fumarate-FA (STUARTNATAL) 27 mg iron- 1 mg tablet 1 Tab oral DAILY ??? prochlorperazine (COMPAZINE) tablet 5 mg oral Q6H PRN ??? QUEtiapine (SEROQUEL) tablet 200 mg oral BID ??? ranitidine (ZANTAC) tablet 300 mg oral BID ??? sodium chloride 0.9 % flush 3 mL intravenous Q8H Allergies No Known Allergies Review of Systems: Pertinent items are noted in Subjective/HPI Objective/Physical Exam: VS: BP: 110/58 mmHg Pulse: 99 Heart Rate: 112 BPM Resp: 18 Temp: 36.2 ??C (97.2 ??F) SpO2: 97 % Exam: Neck/Thyroid: no masses normal thyroid gland Respiratory: Clear to auscultation bilaterally Cardiovascular: Auscultation Heart: no S3, no S4 Extremities: Pedal Pulses: Symmetric distal pulses Gastrointestinal:: Examination Abdomen: gracid Musculoskeletal: Inspection/Palpation Digits/Nails: no abnormalities Data Review: I have independently visualized the Labs: Recent Labs 04/24/14 1640 04/24/14 2036 04/24/14 2220 04/24/14 2344 04/25/14 0044 04/25/14 0137 04/25/14 0634 04/25/14 1419 04/25/14 1812 04/25/14 2118 04/25/14 2343 04/26/14 0641 GLUCOSEFINGE 221* 153* 242* 252* 213* 189* 249* 149* 143* 105* 128* 122* Lab Results Component Value Date WBC 17.08* 04/24/2014 RBC 3.99 04/24/2014 HGB 12.7 04/24/2014 HCT 37.3 04/24/2014 MCV 93 04/24/2014 MCH 31.8 04/24/2014 MCHC 34.0 04/24/2014 PLT 326* 04/24/2014 NEUTROABS 13.03* 04/23/2014 SEDRATE 10 07/13/2010 Lab Results Component Value Date SERGLU 196* 04/14/2013 NA 134* 12/31/2013 K 3.5 12/31/2013 CL 102 12/31/2013 CO2 18* 12/31/2013 BUN 7* 04/23/2014 CREATININE 0.40* 04/24/2014 CALCIUM 9.5 04/14/2013 CALCGFR >60 04/24/2014 ALKPHOS 71 04/14/2013 TBIL 0.5 04/14/2013 AST 13* 04/24/2014 ALT 21 04/24/2014 LABALBU 4.5 04/14/2013 TP 6.9 04/14/2013 Other Studies: N/A Assessment: 38 y.o. at 34 wks with h/o depression here with poorly controlled T2DM and hypertension admitted for control of the same. Patient recently started on lantus and novolog as OP for her poorly controlled BS. BS on NPH 35 units in am and 12 units in PM with 20 units of novolog with meals while inhouse poorly controlled. BS significantly better controlled yesterday. Continue the 15 units of novolog with meals.Will decide on BID vs OD dosing on lantus depending on pre lunch BS. Recommendations: 1]Stop NPH 2] Will decide depending on lantus dosing depending on prelunch BS. 3]Continue meal time novolog to 15 units and add a supplemental scale in addition with this. 4] Goal BS <120 post meals and fasting<95 5] Will follow with you. 6] please obtain a fructosamine level on her today TOLU Alvarado 04/26/2014 8:46 Attestation statement: I saw and examined the patient with the resident/fellow. I agree with the findings and plan of care documented in the resident's/fellow's note. * Anna Fernandez MD - 04/26/2014 0711 EST OB Antepartum Progress Note CC: IUP @ 34w0d, T2DM, admitted with elevated BP S: Attempted to see patient three times but patient not in the room. O: Blood pressure 110/58, pulse 99, temperature 36.2 ??C (97.2 ??F), temperature source Temporal, resp. rate 18, height 152.4 cm (60), weight 86.183 kg (190 lb), last menstrual period 08/31/2013, SpO2 97.00%. Intake/Output Summary (Last 24 hours) at 04/26/14 0712 Last data filed at 04/26/14 0300 Gross per 24 hour Intake 2410 ml Output 2050 ml Net 360 ml Exam: Deferred A/P: 38 y.o. at 34w0d here with CHTN and poorly controlled T2DM. AVSS. *cHTN: Had not been on antihypertensives during this . Started on 200mg labetalol BID on admission. Has been normotensive since. - HELLP labs wnl on admission. Repeat PRN. - urine P:C elevated at 0.6. 24hr urine protein 550 mg, however, no baseline and patient has a history of Type II DM. *T2DM: Very poor control this . Changed insulin regimen to NPH recently; however, given continued poor control, endocrine consulted. Per endo, will change back to Lantus. Regimen will be 15Ulantus qHS, 15U novolog with meals and SSI. Will expect elevated glucoses over the next 24-48 hrs while adjustments to new regimen are being made. - CC diet . - AM fasting, preprandial and 2h PP FS *H/o C/S: Anterior placenta. Desires scheduled repeat *FWB: Last EFW 2064g (69%), transverse on 04/09 - continue q3-4 wk growth scans, with weekly BPP *Depression: H/o suicide attempt w/ insulin OD - continue home antidepressant regimen *Global - BR w/ bathroom priv - GBS pending Anna Fernandez MD 04/26/2014 7:17 * Palmira Martinez RN - 04/25/2014 1054 EST 1015- Pt admitted to L&D from [facility] for NST and BPP 2* decreased movement and nonreactive NST. Pt oriented to room and call light c partner Randal. Pt denies H/A, visual changes, VB, ROM. 1055- Pt to [facility] for BPP c Dr Brooks and Dr Hastings. 1130- GBS collected and sent. Plan to DC pt to [facility]. * Oriana Brooks MD - 04/25/2014 1022 EST OB Antepartum Progress Note CC: IUP @ 33w6d, T2DM, admitted with elevated BP S: Patient brought up to L&D due to non-reactive NST. Patient feeling okay, had decreased fetalmovement this morning. Otherwise, denies ctx, LOF, or VB. O: Blood pressure 136/72, pulse 99, temperature 36.6 ??C (97.9 ??F), temperature source Temporal, resp. rate 18, height 152.4 cm (60), weight 86.183 kg (190 lb), last menstrual period 08/31/2013, SpO2 97.00%. Intake/Output Summary (Last 24 hours) at 04/25/14 1022 Last data filed at 04/25/14 0700 Gross per 24 hour Intake 3740 ml Output 3450 ml Net 290 ml Exam: Gen: NAD Abd: Soft, gravid, non-tender A/P: 38 y.o. at 33w6d here with CHTN and poorly controlled T2DM, now with non-reactive NST,here for extended monitoring. AVSS. *cHTN: Had not been on antihypertensives during this . Started on 200mg labetalol BID on admission. Has been normotensive since. - HELLP labs wnl on admission. Repeat PRN. - urine P:C elevated at 0.6, no baseline done. 24hr urine protein 550. *T2DM: Very poor control this . Changed insulin regimen yesterday to NPH; however, given continued poor control, consulted endocrine this morning. Per endo, will change back to Lantus. Regimen will be 15U lantus qHS, 15U novolog with meals and SSI. Will expect elevated glucoses over the next 24-48 hrs while adjustments to new regimen are being made. - CC diet . - AM fasting, preprandial and 2h PP FS *H/o C/S: Anterior placenta. Desires scheduled repeat *FWB: Last EFW 2064g (69%), transverse on 04/09 - patient had non-reactive NST yesterday and again today; will obtain BPP now - continue q3-4 wk growth scans, with weekly BPP *Depression: H/o suicide attempt w/ insulin OD - continue home antidepressant regimen *Global - BR w/ bathroom priv - will collect GBS swab Discussed with Dr. Dev Brooks MD 04/25/2014 * Steph Chavez, RN - 04/25/2014 6414 EST Pt put on monitor for daily NST at [id number]. FHR 150, minimal variability. Minimal movement.Strip viewed by ENID. Plan for transfer to L&D for further monitoring and evaluation. Report called to Palmira FRANCOIS. Pt transferred in . 1150: transferred back from L&D post 12/06 BPP. Will continue to monitor here on [facility] 5. * Haim Méndez MD - 04/25/2014 0655 EST OB Antepartum Progress Note CC: IUP @ 33w6d, T2DM, admitted with elevated BP S: Patient sleeping. Did not awaken. O: Blood pressure 117/58, pulse 97, temperature 36.2 ??C (97.2 ??F), temperature source Temporal, resp. rate 18, height 152.4 cm (60), weight 86.183 kg (190 lb), last menstrual period 08/31/2013, SpO2 95.00%. Intake/Output Summary (Last 24 hours) at 04/25/14 0655 Last data filed at 04/24/14 2100 Gross per 24 hour Intake 3660 ml Output 3950 ml Net -290 ml UOP: Not recorded. Exam: Deferred patient sleeping. 04/24/2014 16:40 04/24/2014 20:36 04/24/2014 22:20 04/24/2014 23:44 04/25/2014 00:44 04/25/2014 01:37 04/25/2014 06:34 Glucose, Fingerstick 221 (H) 153 (H) 242 (H) 252 (H) 213 (H) 189 (H) 249 (H) A/P: 38 y.o. at 33w6d here with CHTN, elevated BPs last night, poorly controlled T2DM. AVSSthis morning. *cHTN: Had not been on antihypertensives during this . Started on 200mg labetalol BID on admission. Has been normotensive. - HELLP labs wnl on admission. Repeat PRN. - urine P:C elevated at 0.6, no baseline done. 24hr urine protein 550. *T2DM: Very poor control this . Changed insulin regimen yesterday. Currently on NPH 35u AM, 12u PM and aspart 20u AM, 20u PM. - CC diet - Consider increasing night time NPH in an attempt to decrease fasting glucose. - Consider increasing night time aspart. - AM fasting, preprandial and 2h PP FS *H/o C/S: Anterior placenta. Desires scheduled repeat *FWB: Daily NST. Last EFW 2064g (69%), transverse on 04/09 - continue q3-4 wk growth scans, with weekly BPP *Depression: H/o suicide attempt w/ insulin OD - continue home antidepressant regimen *Global - BR w/ bathroom priv - needs GBS swab Cecily Jolley MD 04/25/2014 MFM Attending I have seen and examined Ms. Guzman Jean (she is awake now). I have read and agree with Dr. Jolley's notes and plan documented above. Her fasting blood sugar was over 200. Given endocrinologyhas been involved as an outpatient, we will get them to see her inpatient too. I don't want to discharge her until her 2 hr postprandials are < 200. Her NST was non-reactive yesterday morning, Srinath don't see that it was repeated later in the day. She said her baby wasn't moving this morning, soI asked the nurses to get her on the NST machine expeditiously. Haim Méndez MD 04/25/2014 8:49 6:55 * Kristi Segura MD - 04/24/2014 1655 EST MFM ATTG Blood sugars and insulin reviewed. In view of significant insulin requirements, her insulin will beadjusted as follows: 35 NPH, 20 units aspart before breakfast 20 units aspart before dinner [address] [facility] Kristi Segura MD * Kristi Segura MD - 04/24/2014 0650 EST OB Antepartum Progress Note CC: IUP @ 33w5d, T2DM, admitted with elevated BP S: Doing well this AM. Got some sleep overnight. Again c/o some RUQ/rib pain this morning. No TIDWELL. Baby moving. No ctx. O: BP 114/64 Pulse 99 Temp(Src) 36.2 ??C (97.2 ??F) (Temporal) Resp 20 SpO2 96% LMP 08/31/2013 Intake/Output Summary (Last 24 hours) at 04/24/14 0650 Last data filed at 04/24/14 0640 Gross per 24 hour Intake 0 ml Output 1000 ml Net -1000 ml UOP: 300 cc/2h Gen: NAD CV: RRR Pulm: CTAB Abd: soft, gravid, c/o some tenderess with palpation of RUQ Ext: WWP, trace edema A/P: 38 y.o. at 33w5d here with CHTN, elevated BPs last night, poorly controlled T2DM. AVSSthis morning. #Chronic HTN in - recent acute increase in BPs, received 200 mg PO labetalol on admission. Normotensive since. - HELLP labs wnl on admission, will repeat this AM due to persistent RUQ pain - urine P:C elevated at 0.6, but in pt with CHTN and T2DM and no baseline done this , thismay be less helpful in determining presence of superimposed pre-eclampsia. 24 hr urine protein pending - will watch BPs in house through rest of day while awaiting 24 hr urine collection #T2DM - poor control this , recently switched to insulin - CC diet - continue home insulin for now - 35 lantus qHS, aspart with meals plus sliding scale to attempt to titrate appropriate insulin dose - AM fasting, preprandial and 2h PP FS #H/o C/S - desires scheduled repeat #FWB - CEFM until BPs stabilized - continue q3-4 wk growth scans, with weekly BPP - last EFW 2064g (69%), transverse on 04/09 - anterior placenta #Depression - h/o suicide attempt w/ insulin OD - continue home antidepressant regimen #Global - BR w/ bathroom priv - needs GBS swab Sarita Blount MD 04/24/2014 6:50 MFM ATTG Pt was specifically admitted to r/o PRE superimposed on CHTN and for optimization of glycemic control. I have seen and evaluated patient as follows: 1. R/O PRE Pt with no evidence of transaminitis or thrombocytopenia or other lab evidence of PRE. Therefore, her increased BP is due to lack of adequate Rx for her CHTN. Agree with labetalol 200 mg bid. If not tolerated, will change to Nifiedipine SR 30 mg qd. 2. Diabetes The specific insulin regimen the patient should be on is as follows: AM (15 min before bkfst): 30NPH/15novolog) Dinner (15 min before) 12 units novolog HS 12 units novolog Kristi Segura MD * Sarita Blount MD - 04/24/2014 0021 EST L&D Progress Note CC: cHTN, elevated BP, T2DM Rh neg/GBS unk S: Feeling better. Resting in bed. No TIDWELL. O: BP 118/71 Pulse 99 Temp(Src) 35.8 ??C (96.4 ??F) (Tympanic) Resp 18 LMP 08/31/2013 EFM: BL 135 bpm, mod variability, pos accels, no decels, Cat I FHT TOCO: No ctx Recent Labs 04/23/14 2129 WBC 20.35* HCT 41.7 HGB 14.3 PLT 334* BUN 7* CREATININE 0.40* ALT 20 AST 15 URICACID 3.8 LDH 355 FIBRINOGEN 587* A/P: Guzman Jean is a 38 y.o. @ 33w4d by LMP c/w 6 wk u/s with chronic HTN, worsening BPs. Also T2DM. #HTN: - BP improved after 200 mg PO labetalol - HELLP labs wnl, P:C mildly elevated, but no baseline in chronic hypertensive and diabetic, so maynot be as useful - will complete 24 hr urine protein collection, monitor BPs in house until at least tomorrow - cont PO labetalol 200 BID #T2DM: - FS elevated on arrival. Will continue home regimen plus sliding scale to optimize glycemic control while in house. Stable for transfer to floor Pt discussed with Dr. Loc Blount MD 04/24/2014 0:21 * Cary Seay RN - 04/23/2014 2355 EST 2315- report from Eliza Sommers RN. Pt is here due to increasing BPs in office and uncontrolled FSBG, 256 upon arrival. Given labetalol by offgoing RN and recent BP normotensive, plan to give HS lantus when it arrives from pharmacy to control BG. Request sent to pharmacy for pt's HS meds as they are not in her med drawer. 24 hrs urine started at 2130 and pt needs saline nasal spray due to stuffy nose. 2345- BP of 118/071, pt lying on right side in bed. Comfortable at this time, FHR WNL at 135 bpm baseline with mod variability and accels, uterine irritability on toco. Pt has an elevated WBC, awaiting CRP results at this time. PC ratio of 0.61. 0010- FSBG of 213, pt given 35 u HS lantus. 0020- pt off continuous EFM, okay'd per Dr Casas. 0030- pt has all HS meds, awaiting jugs for 24 hr urine. 0100- report called to [facility] 5 * Kell Sommers RN - 04/23/20142044 EST 20:45 Ryan came in with increased BPs in the office and hyperglycemia in the last 2 wks. She just recently started using insulin again. She denies TIDWELL now but has been having them on and off. C/o pain under her ribs that comes and goes. She states that it feels like the baby moving. documented in this encounter H&P Notes * Anthony Monterroso MD - 04/23/20142135 EST Department of Obstetrics History & Physical Admit Date: 04/23/2014 provider: DEXTER Chief Complaint: Elevated BP HPI: Guzman Jean is a 38 y.o. @ 33w4d by LMP c/w 6 wk u/s. c/b T2DM and chronic HTN. Recently switched to insulin from PO medication - taking 35 lantus qHS and 8 of aspart TID with meals. Has not been on antihypertensives since first trimester - stopped lisinopril at start of , briefly took labetalol but d/c'd it due to bad headaches. HELLP labs wnl last week. Was seen today in [facility] clinic where her BP was 156/78. This was her first elevated BP. She has notedsome temporal headaches over the past week. For the last day, has noted some intermittent sharp RUQpains. Her nose is also stuffier. She denies any ctx, bleeding, or LOF. + FM. Review of Systems: A 10-point review of systems was conducted and was otherwise negative except as listed above in HPI. OB History G1 - 1994 - 1st tri SAB G2 - 1998 - LTCS G3 - 2007 - LTCS Past Medical History Past Surgical History Past Medical History Diagnosis Date ??? Type [...] 1998,2007 times 2 ??? Hip arthroscopy 2013 [employer] History Social History H/o PCOS History Substance Use Topics ??? Smoking status: Current Every Day Smoker -- 0.50 packs/day for 2 years Types: Cigarettes ??? Smokeless tobacco: Never Used ??? Alcohol Use: No Medications Allergies No current facility-administered medications on file prior to encounter. Current Outpatient Prescriptions on File Prior to Encounter Medication Sig Dispense Refill ??? acetaminophen (TYLENOL) 500 mg tablet Take 2 Tabs by mouth every 4 hours as needed. ??? cyclobenzaprine (FLEXERIL) 10 mg tablet Take 10 mg by mouth 2 times daily. ??? dexmethylphenidate (FOCALIN) 10 mg tablet Take 10 mg by mouth 3 times daily. ??? GABAPENTIN (NEURONTIN ORAL) Take 1,500 mg by mouth daily . ??? insulin aspart (NOVOLOG FLEXPEN) 100 unit/mL injectable pen Begin with 8 units of novolog with each meal, dosing will increase with as her progresses.. 1 Box 1 ??? insulin glargine (LANTUS SOLOSTAR) 100 unit/mL (3 mL) injection pen Begin with 35 units of lantus at bedtime, dose will increase with her . 1 Box 1 ??? insulin pen needles 31G x 5/16 BD UltraFine Short. Will be using 4 pen needles per day at thispoint.. 100 Each 3 ??? lidocaine 5 % (LIDODERM) 5 %(700 mg/patch) patch Apply patch to her back or hip as needed for pain 15 Patch 0 ??? multivitamin vit-iron fumarate-FA (STUARTNATAL) 27 mg iron- 1 mg tablet tablet Take 1 Tab by mouth daily. 90 Tab 2 ??? QUEtiapine (SEROQUEL) 200 mg tablet Take 200 mg by mouth 2 times daily. ??? terconazole (TERAZOL 3) [address] 1 Suppository vaginally daily. 3 Suppository 1 No Known Allergies OB Course: BITA 06/07/2014 Blood Type A neg Varicella prot Rubella imm Gonorrhea neg Chlamydia neg Pap wnl 09/2013, neg HPV VRDL NR Hep B neg Hep C HIV neg 1 hour gtt n/a Aneuploidy Testing NIPT low risk CF Testing Last U/S Objective/Physical Exam: Patient Vitals for the past 8 hrs: BP Pulse Heart Rate Resp 04/23/14 2215 162/88 mmHg 99 99 BPM 18 04/23/142049 181/79 mmHg - 110 BPM - 04/23/143 166/82 mmHg - 118 BPM - GEN: NAD CV: RRR RESP: CTAB ABD: soft, gravid, + TTP in RUQ and epigastrum. EXT: WWP, 1+ DTR right patella, trace edema SVE: deferred FHT: Baseline 140, mod variability, + accels, no decels, Cat I FHT TOCO: no ctx Labs: pending Assessment/Problems/Plan: Guzman Jean is a 38 y.o. @ 33w4d by LMP c/w 6 wk u/s with chronic HTN, worsening BPs. Also T2DM. #Chronic HTN in - recent acute increase in BPs, has not required antihypertensives yet this . Treated ffye226 mg PO labetalol on admission due to severe range BPs and inability to place an IV in a timely fashion. - HELLP labs along with urine P:C pending to differentiate worsening cHTN vs superimposed pre-eclampsia. P:C 0.6. No baseline 24 hr urine protein this . Will await bloodwork and admit at least overnight for BP monitoring. #T2DM - poor control this , recently switched to insulin - CC diet - continue home insulin for now - 35 lantus qHS, aspart with meals. - AM fasting and 2h PP FS #H/o C/S - desires scheduled repeat #FWB - CEFM until BPs stabilized - continue q3-4 wk growth scans, with weekly BPP - last EFW 2064g (69%), transverse on 04/09 - anterior placenta #Depression - h/o suicide attempt w/ insulin OD - continue home antidepressant regimen #Global - BR w/ bathroom priv - needs GBS swab D/w Dr. Loc Blount MD 04/23/2014 22:29 Attestation statement: I have seen this patient and discussed the patient with the resident physician.?? I agree with the findings and the plan of care documented in the resident's note. Afebrile butgiven elevated WBC at 20K will add CRP and Diff.. gtillmd documented in this encounter Procedure Notes * Haim Méndez MD - 04/25/2014 1409 ESTAssociated Order(s): NONSTRESS TEST Procedure(s): PT ARRIVED, SRVC NOT BILLABLE *STATISTIC* Pre-Procedure Diagnose(s): Diabetes mellitus, antepartum(648.03); Type II or unspecified type diabetes mellitus without mention of complication, not stated as uncontrolled Post-Procedure Diagnose(s): Abnormality in heart rate/rhythm, antepartum condition or complication; Diabetes mellitus, antepartum(648.03); Type II or unspecified type diabetes mellitus without mention of complication, not stated as uncontrolled NST Report from [id number] at 0840 Baseline Heart Rate: 150 Accelerations: Only one present Movement: present Decelerations: absent Contractions: absent Interpretation: Non-reactive but normal variability. Due to being non-reactive, she will go upstairs for a BPP. Note this NST is not separately billable as it will be bundled with the BPP. Haim Méndez MD 04/25/2014 14:11 * Haim Méndez MD - 04/24/2014 0804 ESTAssociated Order(s): TDAP VACCINE =>7YO IM; NONSTRESS TEST Procedure(s): VT NONSTRESS TEST Pre-Procedure Diagnose(s): Benign essential hypertension antepartum in third trimester; Diabetes mellitus, antepartum(648.03) Post-Procedure Diagnose(s): Benign essential hypertension antepartum; Diabetes mellitus, antepartum(648.03) NST Report from [id number] Baseline Heart Rate: 145 Accelerations: absent Movement: present Decelerations: absent Contractions: absent Interpretation: Non-reactive but normal variability. Dr. Hutson had been notified at the time of the NST. It will be repeated on the morning of 04/25. Haim Méndez MD 04/25/2014 8:06 documented in this encounter Consult Notes * Riky Wang MD - 04/25/2014 0931 EST Endocrine Inpatient Consult Note Admit Date: 04/23/2014 Date of Service: 04/25/2014 Requesting Physician: Dr Méndez Specialty Completing Consult: Endocrine Reason for Consult: Type 2 diabetes, poorly controlled BS for inpatient diabetes manaement HPI: 38 y.o. at 33w6d with h/o depression here with poorly controlled T2DM and hypertension admitted for control of the same. Patient is a known diabetic and last saw us in clinic in January and given she had a recent episode at the time of a suicide attempt with an insulin overdose she was prescribed metformin 1000 mg BID and we had added glyburide 5 mg bid. She did not keep her appointment in February and last week reported BS numbers which were poorly controlled and she was started on 35 units of Lantus and 8 of Novolog with meals which she reports she took for 3 days prior to coming saturday but BS were not significantly improved. Reports fasting BS in the 200's and post meal BS's in the 300's. Diabetes HX: Obstetric History: 4 Para 2 LMP 08/31/13 Expected delivery date 06/08/14 Hypertension with current yes 24 hour urine protein 73 Previous pregnancies Had gestational diabetes with first and second pregnancies- was on metformin for the first and baby weighed 9 pounds, second child weighed 7.5 pounds - born premature and she was on insulin at the time Weight of previous children at As mentioned above / Vaginal Deliv. c sect Pre- weight Not known Previous Hx of PCOS, IGT, IFG, GDM GDM with ist and requiring insulin with second Diabetes History: Diagnosed in: ?OGTT Pre-preg treatment Metformin (?suicidal ideation with insulin) A1c at conception Not known, HBA1C of 7.4 in 10/10 Home monitoring Fastin hour post breakfast 2 hour post lunch 2 hour post supper Associated macro, micro vascular complications none Last eye exam ? Family history of diabetes Grand parents PMH PSH Past Medical History Diagnosis Date ??? Type [...] ??? Cholecystectomy 11/25/2009 Dr. Mendez ??? section 1998,2008 times 2 ??? Hip arthroscopy 2012 Social History Family History History Substance Use Topics ??? Smoking status: Current Every Day Smoker -- 0.50 packs/day for 2 years Types: Cigarettes ??? Smokeless tobacco: Never Used ??? Alcohol Use: No Family History Problem Relation Age of Onset ??? Cancer Maternal Aunt breast cancer ??? Cancer Maternal Grandmother breats cancer ??? Diabetes Paternal Grandmother ??? Diabetes Paternal Grandfather Medications Current Facility-Administered Medications Medication Route Frequency ??? acetaminophen (TYLENOL) tablet 650 mg oral Q4H PRN ??? calcium carbonate (TUMS) 200 mg calcium (500 mg) per chewable tablet tablet,chewable 1-2 Tab oral QID PRN ??? cyclobenzaprine (FLEXERIL) tablet 10 mg oral DAILY ??? cyclobenzaprine (FLEXERIL) tablet 20 mg oral QHS ??? dexmethylphenidate (FOCALIN) tablet 10 mg oral USER SPECIFIED ??? dextrose 50 % solution 12.5 g intravenous PRN ??? docusate sodium (COLACE) capsule 100 mg oral BID PRN ??? gabapentin (NEURONTIN) capsule 1,500 mg oral USER SPECIFIED ??? glucagon (human recombinant) injection 1 mg intramuscular PRN ??? insulin aspart (NOVOLOG FLEXPEN) injection 20 Units subcutaneous DAILY BEFORE BREAKFAST ??? insulin aspart (NOVOLOG FLEXPEN) injection 20 Units subcutaneous DAILY BEFORE DINNER ??? insulin NPH (HUMULIN N, NOVOLIN N) injection 12 Units subcutaneous DAILY ??? insulin NPH (HUMULIN N, NOVOLIN N) injection 35 Units subcutaneous DAILY BEFORE BREAKFAST ??? labetalol (NORMODYNE) tablet 200 mg oral Q12H ??? multivitamin vit-iron fumarate-FA (STUARTNATAL) 27 mg iron- 1 mg tablet 1 Tab oral DAILY ??? prochlorperazine (COMPAZINE) tablet 5 mg oral Q6H PRN ??? QUEtiapine (SEROQUEL) tablet 200 mg oral BID ??? ranitidine (ZANTAC) tablet 300 mg oral BID ??? sodium chloride 0.9 % flush 3 mL intravenous Q8H Allergies No Known Allergies Review of Systems: Pertinent items are noted in Subjective/HPI Objective/Physical Exam: VS: BP: 132/77 mmHg Pulse: 99 Heart Rate: 99 BPM Resp: 18 Temp: 36.6 ??C (97.9 ??F) SpO2: 95 % Exam: Neck/Thyroid: no masses normal thyroid gland Respiratory: Clear to auscultation bilaterally Cardiovascular: Auscultation Heart: no S3, no S4 Extremities: Pedal Pulses: Symmetric distal pulses Gastrointestinal:: Examination Abdomen: gracid Musculoskeletal: Inspection/Palpation Digits/Nails: no abnormalities Data Review: I have independently visualized the Labs: Recent Labs 04/24/14 0727 04/24/14 1057 04/24/14 1243 04/24/14 1330 04/24/14 1535 04/24/14 1640 04/24/14 2036 04/24/14 2220 04/24/14 2344 04/25/14 0044 04/25/14 0137 04/25/14 0634 GLUCOSEFINGE 205* 301* 220* 186* 226* 221* 153* 242* 252* 213* 189* 249* Lab Results Component Value Date WBC 17.08* 04/24/2014 RBC 3.99 04/24/2014 HGB 12.7 04/24/2014 HCT 37.3 04/24/2014 MCV 93 04/24/2014 MCH 31.8 04/24/2014 MCHC 34.0 04/24/2014 PLT 326* 04/24/2014 NEUTROABS 13.03* 04/23/2014 SEDRATE 10 07/13/2010 Lab Results Component Value Date SERGLU 196* 04/14/2013 NA 134* 12/31/2013 K 3.5 12/31/2013 CL 102 12/31/2013 CO2 18* 12/31/2013 BUN 7* 04/23/2014 CREATININE 0.40* 04/24/2014 CALCIUM 9.5 04/14/2013 CALCGFR >60 04/24/2014 ALKPHOS 71 04/14/2013 TBIL 0.5 04/14/2013 AST 13* 04/24/2014 ALT 21 04/24/2014 LABALBU 4.5 04/14/2013 TP 6.9 04/14/2013 Other Studies: N/A Assessment: 38 y.o. at 33w6d with h/o depression here with poorly controlled T2DM and hypertension admitted for control of the same. Patient recently started on lantus and novolog as OP for her poorly controlled BS. BS on NPH 35 units in a and 12 units in PM with 20 units of novolog with meals while inhouse poorly controlled. She has received her NPH this am. We will convert her to lantus for a long acting insulin and give her 15 units of lantus at night today and see how her BS control does on this fully aware that BS are not going to be well controlled today. Dario decrease novolog to 15 units with meals for now and we might need to cut back further once we get better control of her basal insulin requirements. Recommendations: 1]Stop NPH 2] Lantus 15 units at [facility] today- order written 3] Will decrease meal time novolog to 15 units and add a supplemental scale in addition with this. 4] Goal BS <120 post meals and fasting<95 5] Will follow with you. TOLU Alvarado 04/25/2014 9:33 Attestation: I saw and examined the patient with the resident/fellow 04/25/2014. I agree with the findings and plan of care documented in the resident's/fellow's note. Riky Wang MD 04/25/2014 17:09 documented in this encounter Miscellaneous Notes * Plan of Care - Marisol Martinez RN - 04/27/2014 1418 EST Problem: PAIN Goal: Patient???s pain/discomfort is manageable/tolerable Data: Pt consistently rates her pain as 5/10. Tylenol given without relief. Pt ambulated outside this morning (in an attempt to relieve pain) without effect. Also, showered this AM in an attempt to relieve pain, without effect. NST showed 6 ctx's over 50 min. Strip reviewed by Dr. Williamson. Action: Offer heat and tylenol. If pain worsens or pt is laboring inform HO. Response: Stable though very uncomfortable. Marisol Martinez RN 04/27/2014 14:14 * Plan of Marisol Quintero RN - 04/27/2014 1409 EST Ante- Shift Note Reason for Admission: CHTN, T2DM BITA: 06/07/2014 Gestational Age (weeks): 34W1D Cervix: Vital signs: Stable Patient Vitals for the past 8 hrs: BP Heart Rate Resp Temp SpO2 04/27/14 0914 127/66 mmHg - - - - 04/27/14 0810 145/80 mmHg 103 BPM 18 36.8 ??C (98.2 ??F) 99 % Movement: Present Membranes intact: Yes Bleeding: No Contractions: Irritability, Irregular and Comment: pt has been uncomfortable throughout the day despite tylenol, ambulation, and a shower. NST: Comment: NST met criteria Betamethasone: GDM: Yes, uncontrolled T2DM. IV / SL: Saline lock patent and flushed this shift Special Social Circumstances: H/O 2 suicide attempts in the past with insulin OD. 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 Comments: Chronic HTN; Chems improved over hospital stay but PC breakfast was 221 this AM. Currently AC and HS chems are ordered but we have been doing them PC as well. Dr Williamson confirmed verbally that we should be doing PC chems. Possible discharge this evening has been discussed with pt. By Dr Lerner. Marisol Martinez RN * Plan of Care - Melissa Corado RN - 04/27/20147 EST Problem: RELATIONSHIP/COPING Goal: Patient & Family Adapt To Hospitalization Outcome: Ongoing D: Pt with flat affect this shift. Boyfriend at home for night. A: Talked with pt about how she is dealing with hospitalization. Pt talked about looking forward tod/c tomorrow and is not sure about plans for working. She did not open up about other issues bothering her, but did visit on L&D with coworkers. R: Pt continued with flat affect, but no observed tears or emotional lability observed. Continue tomonitor. * Plan of Care - Phong Best RN IBCLC - 04/26/2014 0964 EST Problem: RELATIONSHIP/COPING Goal: Patient & Family Adapt To Hospitalization Outcome: Ongoing D: Pt upset and crying this evening. A: I sat and talked with her for some time. See previous note. R: Pt seemed less upset, but still solmn. Will continue to monitor. * Plan of Care - Phong Best RN IBCLC - 04/26/2014 2105 EST 2012: I entered to room to find the patient crying, as another nurse was doing a BG. I asked what what wrong and the pt said she was fine. As I sat in the room and waited for her to calm down, she started to explain to me that she feels like a failure because she's taking psych medications while being . She stated at least I'm on the lowest doses I can be on. I reassurred her that she needed to do what was right for her to be stable, in order for her baby and her to go ok.She stated this whole hasn't gone ok. I sat and talked with the patient for some time, she explained to me that the anniversary of her SA with insulin is in early April, and that's a hard memory to have. Her boyfriend at the time just left me there to . She is having a hard time being back on insulin, since she has been on oral diabetes meds until now. She stated that she was trying to avoid her appointment with endocrine because she didn't want to go back on insulin. She verbalized that everyone is out to see me fail. They all made me promise that nothing would happen. When I asked if the patient felt like she wanted to talk with someone, she adamantly said no, and stated that she promised Eduardo Diez and Iraida Lerner that nothing would happen. I encouraged her to speak to someone if she was feeling like her meds were not working, and that it was better for her to speak up and be on the correct doses of medications, than be upset and unhappy. She stated a number of times that I will be fine. I'm fine. I'll be fine. The patient calmed down a little and stated she wanted to go outside for some fresh air before she got her insulin and ate her dinner. Pt seems more calm, but still solmn when she returned to the floor. She was on the phone with her mom when I re-entered her room to give her meds. She received her insulin and ate her dinner. * Plan of Care - Stacy Galindo RN - 04/26/2014 0313 EST Problem: NUTRITION/DIET Goal: Adequate Fluid & Diet To Meet Nutritional Needs Outcome: Not Met This Shift Data: Undelivered patient at 33+6 weeks with uncontrolled T2DM. Action: AC chems, 2 hr PC chems, HS chems. Response: Blood sugars decreasing, better tonight. Continue current plan. Stacy Galindo RN 04/26/2014 3:13 * Plan of Care - Stacy Galindo RN - 04/26/2014 0311 EST Ante- Shift Note Reason for Admission: CHTN, T2DM BITA: 06/07/2014 Gestational Age (weeks): 34W0D Cervix: Vital signs: Stable Patient Vitals for the past 8 hrs: BP Heart Rate Resp Temp SpO2 04/25/14 2352 110/58 mmHg 112 BPM 18 36.2 ??C (97.2 ??F) 97 % 04/25/14 1956 139/83 mmHg 120 BPM - - - Movement: Present Membranes intact: Yes Bleeding: No Contractions: No NST: Not reactive Yesterday morning. To L&D for a BPP. 12/06. Then transferred back to [facility]. Betamethasone: GDM: Yes, uncontrolled T2DM. IV / SL: Saline lock patent and flushed this shift Special Social Circumstances: H/O 2 suicide attempts in the past with insulin OD. Randal, boyfriend, present at bedside but not FOB. 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 Comments: Chronic HTN; Ruling out Pre-Eclampsia, 24-hour urine sent. Chems decreasing this shift. AC, 2 hr PCand HS chems done. Stacy Galindo RN * Plan of Care - Steph Chavez RN - 04/25/2014 5615 EST Ante- Shift Note Reason for Admission: CHTN, T2DM BITA: 06/07/2014 Gestational Age (weeks): 33W6D Cervix: Vital signs: Stable Patient Vitals for the past 8 hrs: BP Heart Rate Resp Temp 04/25/14 1620 167/83 mmHg 113 BPM 20 36.4 ??C (97.5 ??F) Movement: Present Membranes intact: Yes Bleeding: No Contractions: No NST: Not reactive To L&D for a BPP. 12/06. Then transferred back to [facility]. Betamethasone: GDM: Yes, uncontrolled T2DM. IV / SL: Saline lock patent and flushed this shift Special Social Circumstances: H/O 2 suicide attempts in the past with insulin OD Comments: Chronic HTN; Ruling out Pre-Eclampsia, 24-hour urine sent. 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 carrie Teeiend at bedside is not FOB. D: Chems labile A: ChemsAC, 2 hr PC, HS. R: Insulin adjusted. Chems decreasing. Better today. Steph Chavez RN * Plan of Care - Stacy Galindo RN - 04/25/2014 031 EST Problem: NUTRITION/DIET Goal: Adequate Fluid & Diet To Meet Nutritional Needs Outcome: Not Met This Shift Data: Undelivered patient at 33+6 weeks with uncontrolled T2DM. Action: AC chems, 2 hr PC chems. Response: Blood sugars elevated last night. 2030: AC chem of 153 2230: 2 hr recheck at 242. 12 units of scheduled humulin given at that time, as well as an additional 10 units ordered X1. 2344: Recheck at 213. X1 dose of Novolog 10 units given. 0045: Hour recheck at 189. Per MD no further intervention needed until AC chem this morning. Will continue to monitor. Stacy Bardinelli, RN 04/25/2014 3:13 * Plan of Care - Stacy Galindo RN - 04/25/2014 0302 EST Ante- Shift Note Reason for Admission: BITA: 06/07/2014 Gestational Age (weeks): 33W6D Cervix: Vital signs: Stable Patient Vitals for the past 8 hrs: BP Pulse Heart Rate Resp Temp SpO2 04/24/14 2213 117/58 mmHg 97 97 BPM 18 36.2 ??C (97.2 ??F) 95 % 04/24/14 2207 117/58 mmHg 97 - - - - Movement: Present Membranes intact: Yes Bleeding: No Contractions: No NST: Not reactive On days: Baby accelerated but not 15 beats for 15 seconds twice. Betamethasone: GDM: Yes, uncontrolled T2DM. IV / SL: Saline lock patent and flushed this shift Special Social Circumstances: H/O 2 suicide attempts in the past with insulin OD Comments: Chronic HTN; Ruling out Pre-Eclampsia, 24-hour urine sent. 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 Randal, boyfriend at bedside is not FOB. On AC and 2-hr post prandial chems. Chems elevated this shift; AC chem of 153; 2 hr recheck at 242.12 units of scheduled humulin given at that time, as well as an additional 10 units ordered X1. 1 hour recheck at 213. X1 dose of Novolog 10 units given. Hour recheck at 189. Per MD no further intervention needed until AC chem this morning at 0700. Stacy Galindo RN * Plan of Care - Dahiana Merza RN - 04/24/2014 1820 EST Problem: PAIN Goal: Patient???s pain/discomfort is manageable/tolerable Outcome: Met This Shift Data: Pt here at 33+5 with uncontrolled BS, CHTN, pre ecl work up. Headache 09/05 Action: Patient medicated with tylenol and compazine for headache, BS monitored per orders Response: Pt's headache 07/06. Pt states relief. Continue to monitor. * Plan of Care - Maria Eugenia Gómez, RN - 04/24/2014 1210 EST Problem: MAINTENANCE/ SUPPORT Goal: Maintain Outcome: Met This Shift Data: Vital signs stable. No bleeding, no leaking, no ctx. Baby active Action: Watch for signs of distress or labor Response: nst reassuring but not reactive. Dr hutson told Maria Eugenia Gómez RN 04/24/2014 12:09 * Plan of Care - Maria Eugenia Gómez, RN - 04/24/2014 1200 EST Ante- Shift Note Reason for Admission: BITA: 06/07/2014 Gestational Age (weeks): 33W5D Cervix: Vital signs: Stable Patient Vitals for the past 8 hrs: BP Heart Rate Resp Temp SpO2 04/24/14 1014 128/69 mmHg 99 BPM 20 36.2 ??C (97.2 ??F) 97 % 04/24/14 0813 122/64 mmHg 94 BPM 20 - 96 % 04/24/14 0810 - - - 36.5 ??C (97.7 ??F) - Movement: Present Membranes intact: Yes Bleeding: No Contractions: No NST: Not reactive Baby accelerated but not 15 beats for [address] hutson told by phong best Betamethasone: GDM: Yes, uncontrolled T2DM. Insulin not here this am, called pharmacy to send stat. Pt. Had gone off unit before ac chem done, did chem when she got back to unit and it was elevated. Phong best notified dr. patient had started eating before insulin arrived. When dr segura arrived on floor we discussed chems, insulin, pt. Eating, she ordered for nph and aspart which was given when it arrived on floor. Dr segura asked for chem one hour later which was elevated and dr hutson was notified. Dr. Singerid to get insulin order for lunch from residents but if no response call her. IV / SL: Saline lock patent and flushed this shift Special Social Circumstances: Comments:pt. Stated she had 2 suicide attempts in past with insulin. R/O Pre-Eclampsia Pt works on L&D. Chronic HTN On 24h urine started 2129. H/O polycystic ovaries. Randal, boyfriend at bedside is not FOB. On chems. Multiple meds for various issues. Pt. Said her left calf was tender and dr segura was told. Pt. Stated she had told them this in office also. No redness, no heat, not swollen, venodynes on. Maria Eugenia Gómez, RN * Plan of Care - Melissa Corado RN - 04/24/2014 0752 EST Problem: RELATIONSHIP/COPING Goal: Patient & Family Adapt To Hospitalization Outcome: Ongoing D: Pt here to r/o pre-eclampsia. On 24 hour urine. Asking if able to go down to lobby this morning. A: Informed pt of bedrest with BR privileges and WC privileges. R: Pt aware. Upbeat attitude about hospitalization at this time. Continue to monitor. * Plan of Care - Melissa Corado RN - 04/24/2014 0771 EST Ante- Shift Note Reason for Admission: BITA: 06/07/2014 Gestational Age (weeks): 33W5D Cervix: Vital signs: Stable Patient Vitals for the past 8 hrs: BP Heart Rate Resp Temp SpO2 04/24/14 0200 114/64 mmHg 93 BPM 20 36.2 ??C (97.2 ??F) 96 % 04/24/14 0050 118/55 mmHg 83 BPM - - - 04/23/14 2345 118/71 mmHg 101 BPM 18 - - Movement: Present Membranes intact: Yes Bleeding: No Contractions: No NST: N/A not completed on this shift Betamethasone: GDM: Yes, uncontrolled T2DM IV / SL: Saline lock patent and flushed this shift Special Social Circumstances: Comments: R/O Pre-Eclampsia Pt works on L&D. Chronic HTN On 24h urine started 2129. H/O polycystic ovaries. alexey Teefriend at bedside is not FOB. On chems. Multiple meds for various issues. Taking Tylenol for upper right abdominal pain 08/06. Melissa Corado, RN documented in this encounter Plan of Treatment Scheduled Referrals Name Type Priority Associated Diagnoses Order Schedule PROVIDER FOLLOW-UP INSTRUCTIONS Outpatient Referral Routine Ordered: 04/27/2014 PROVIDER FOLLOW-UP INSTRUCTIONS Outpatient Referral Routine Ordered: 04/27/2014 documented as of this encounter Goals Goal Patient Goal Type Associated Problems Recent Progress Patient-Stated? Author HEMOGLOBIN A1C < 7.0 Result Component Type 2 diabetes mellitus ([facility] [address]) 8.7(07/07/2015 5:05 EST) No Annmarie Vigil documented as of this encounter Procedures Procedure Name Priority Date/Time Associated Diagnosis Comments GLUCOSE, GLUCOMETER Routine 04/27/2014 1 6:16 EST GLUCOSE, GLUCOMETER Routine 04/27/2014 1 2:49 EST GLUCOSE, GLUCOMETER Routine 04/27/2014 1 0:09 EST GLUCOSE, GLUCOMETER Routine 04/27/2014 7 :05 EST GLUCOSE, GLUCOMETER Routine 04/27/2014 0 :18 EST GLUCOSE, GLUCOMETER Routine 04/26/2014 2 1:15 EST GLUCOSE, GLUCOMETER Routine 04/26/2014 2 0:13 EST FRUCTOSAMINE Routine 04/26/2014 17:55 EST GLUCOSE, GLUCOMETER Routine 04/26/2014 1 7:21 EST GLUCOSE, GLUCOMETER Routine 04/26/2014 1 4:36 EST GLUCOSE, GLUCOMETER Routine 04/26/2014 9 :21 EST GLUCOSE, GLUCOMETER Routine 04/26/2014 6 :41 EST GLUCOSE, GLUCOMETER Routine 04/25/2014 2 3:43 EST GLUCOSE, GLUCOMETER Routine 04/25/2014 2 1:18 EST GLUCOSE, GLUCOMETER Routine 04/25/2014 1 8:12 EST GLUCOSE, GLUCOMETER Routine 04/25/2014 1 4:19 EST NONSTRESS TEST Routine 04/25/2014 14:12 EST GROUP B STREP PCR Routine 04/25/2014 11: 33 EST LD US BPP WITH NST Routine 04/25/2014 11 :31 EST NONSTRESS TEST Routine 04/25/2014 8:07 EST TDAP VACCINE =>7YO IM Routine 04/25/2014 8:07 EST Supervision of other high-risk (V23.89) GLUCOSE, GLUCOMETER Routine 04/25/2014 6 :34 EST GLUCOSE, GLUCOMETER Routine 04/25/2014 1 :37 EST GLUCOSE, GLUCOMETER Routine 04/25/2014 0 :44 EST GLUCOSE, GLUCOMETER Routine 04/24/2014 2 3:44 EST GLUCOSE, GLUCOMETER Routine 04/24/2014 2 2:20 EST URINE INFORMATION Routine 04/24/2014 21: 30 EST CREATININE, URINE 24HR Routine 04/24/2014 21:30 EST PROTEIN, TOTAL, 24 HR, URINE Routine 04/24/2014 21:30 EST GLUCOSE, GLUCOMETER Routine 04/24/2014 2 0:36 EST GLUCOSE, GLUCOMETER Routine 04/24/2014 1 6:40 EST GLUCOSE, GLUCOMETER Routine 04/24/2014 1 5:35 EST GLUCOSE, GLUCOMETER Routine 04/24/2014 1 3:30 EST GLUCOSE, GLUCOMETER Routine 04/24/2014 1 2:43 EST GLUCOSE, GLUCOMETER Routine 04/24/2014 1 0:57 EST FIBRINOGEN Routine 04/24/2014 7:45 EST COMPLETE BLOOD COUNT Routine 04/24/2014 7:45 EST URIC ACID Routine 04/24/2014 7:45 EST ALT Routine 04/24/2014 7:45 EST AST Routine 04/24/2014 7:45 EST LDH Routine 04/24/2014 7:45 EST CREATININE Routine 04/24/2014 7:45 EST GLUCOSE, GLUCOMETER Routine 04/24/2014 7 :27 EST GLUCOSE, GLUCOMETER Routine 04/24/2014 0 :26 EST INPATIENT ADD-ON STAT 04/23/2014 23:1 0 EST GLUCOSE, GLUCOMETER Routine 04/23/2014 2 2:09 EST URINALYSIS WITH MICROSCOPIC IF POSITIVE STAT 04/23/2014 21:31 EST UA REFLEX Routine 04/23/2014 21:31 EST URINE CULTURE IF POSITIVE STAT 04/23/2014 21:31 EST PROTEIN, TOTAL, RANDOM, URINE STAT 04/23/2014 21:31 EST CREATININE, URINE RANDOM STAT 04/23/2014 21:31 EST DIFFERENTIAL Routine 04/23/2014 21:29 EST FIBRINOGEN STAT 04/23/2014 21:29 EST COMPLETE BLOOD COUNT STAT 04/23/2014 21:29 EST BLOOD BANK HOLD STAT 04/23/2014 21:29 EST C REACTIVE PROTEIN Routine 04/23/2014 21 :29 EST URIC ACID STAT 04/23/2014 21:29 EST BUN STAT 04/23/2014 21:29 EST ALT STAT 04/23/2014 21:29 EST AST STAT 04/23/2014 21:29 EST LDH STAT 04/23/2014 21:29 EST CREATININE STAT 04/23/2014 21:29 EST documented in this encounter Results * (ABNORMAL) GLUCOSE, GLUCOMETER (04/27/2014 16:16 EST) Glucose, Fingerstick 176(H) 70 - 100 mg/dl 04/27/2014 16:23 EST [facility] [place] ID [id number] 04/27/2014 16:23 EST [facility] Comment:Test Performed by [facility] BLOOD SPECIMEN / Unknown 04/27/2014 16:16 EST 04/27/2014 16:23 EST Haim éMndez MD CHEMISTRY & BLOO D GAS ORDERABLES [facility] [address] [place] [address] * (ABNORMAL) GLUCOSE, GLUCOMETER (04/27/2014 12:49 EST) Glucose, Fingerstick 162(H) 70 - 100 mg/dl 04/27/2014 12:51 EST [facility] [place] ID [id number] 04/27/2014 12:51 EST [facility] Comment:Test Performed by [facility] BLOOD SPECIMEN / Unknown 04/27/2014 12:49 EST 04/27/2014 12:51 EST Haim Méndez MD CHEMISTRY & BLOO D GAS ORDERABLES Performing Organization Address City/[facility]/ZIP Co de Phone Number [facility] [address] [place] [address] * (ABNORMAL) GLUCOSE, GLUCOMETER (04/27/2014 10:09 EST) Glucose, Fingerstick 221(H) 70 - 100 mg/dl 04/27/2014 10:12 EST [facility] [place] ID [id number] 04/27/2014 10:12 EST [facility] Comment:Test Performed by [facility] BLOOD SPECIMEN / Unknown 04/27/2014 10:09 EST 04/27/2014 10:11 EST Haim Méndez MD CHEMISTRY & BLOO D GAS ORDERABLES Performing Organization Address City/[facility]/ZIP Co de Phone Number [facility] [address] [place] [address] * (ABNORMAL) GLUCOSE, GLUCOMETER (04/27/2014 7:05 EST) Glucose, Fingerstick 121(H) 70 - 100 mg/dl 04/27/2014 7:07 EST [facility] [place] ID [id number] 04/27/2014 7:07 EST [facility] Comment:Test Performed by [facility] BLOOD SPECIMEN / Unknown 04/27/2014 7:05 EST 04/27/2014 7:07 EST Haim Méndez MD CHEMISTRY & BLOO D GAS ORDERABLES Performing Organization Address [facility] Co de Phone Number [facility] [address] [place] [address] * (ABNORMAL) GLUCOSE, GLUCOMETER (04/27/2014 0:18 EST) Glucose, Fingerstick 115(H) 70 - 100 mg/dl 04/27/2014 0:20 EST [facility] [place] ID [id number] 04/27/2014 0:20 EST [facility] Comment:Test Performed by [facility] BLOOD SPECIMEN / Unknown 04/27/2014 0:18 EST 04/27/2014 0:20 EST Haim Méndez MD CHEMISTRY & BLOO D GAS ORDERABLES Performing Organization Address [facility] Co de Phone Number [facility] [address] [place] [address] * (ABNORMAL) GLUCOSE, GLUCOMETER (04/26/2014 21:15 EST) Glucose, Fingerstick 132(H) 70 - 100 mg/dl 04/26/2014 21:35 EST [facility] [place] ID [id number] 04/26/2014 21:35 EST [facility] Comment:Test Performed by [facility] Services BLOOD SPECIMEN / Unknown 04/26/2014 21:15 EST 04/26/2014 21:35 EST Haim Méndez MD CHEMISTRY & BLOO D GAS ORDERABLES Performing Organization Address City/[facility]/ZIP Co de Phone Number [facility] [address] [place] [address] * (ABNORMAL) GLUCOSE, GLUCOMETER (04/26/2014 20:13 EST) Glucose, Fingerstick 111(H) 70 - 100 mg/dl 04/26/2014 20:15 EST [facility] [place] ID [id number] 04/26/2014 20:15 EST [facility] Comment:Test Performed by [facility] Services BLOOD SPECIMEN / Unknown 04/26/2014 20:13 EST 04/26/2014 20:15 EST Haim Méndez MD CHEMISTRY & BLOO D GAS ORDERABLES Performing Organization Address [facility] Co de Phone Number [facility] [address] [place] [address] * (ABNORMAL) FRUCTOSAMINE (04/26/2014 17:55 EST) Fructosamine, S 286(H) 200 - 285 mcmol/L 04/27/2014 14:03 EST [facility] Blood specimen (specimen) BLOOD SPECIMEN / Unknown 04/26/2014 17:55 EST 04/26/2014 18:29 EST Anna Corley MD CHEMISTRY & BLOOD GA S ORDERABLES Performing Organization Address [facility] Phone Number [facility] [address] [place] [address] * (ABNORMAL) GLUCOSE, GLUCOMETER (04/26/2014 17:21 EST) Glucose, Fingerstick 195(H) 70 - 100 mg/dl 04/26/2014 17:31 EST [facility] [place] ID [id number] 04/26/2014 17:31 EST [facility] Comment:[facility] BLOOD SPECIMEN / Unknown 04/26/2014 17:21 EST 04/26/2014 17:31 EST Haim Méndez MD CHEMISTRY & BLOO D GAS ORDERABLES Performing Organization Address [facility] Co de Phone Number [facility] [address] [place] [address] * (ABNORMAL) GLUCOSE, GLUCOMETER (04/26/2014 14:36 EST) Glucose, Fingerstick 116(H) 70 - 100 mg/dl 04/26/2014 14:41 EST [facility] [place] [id number] 04/26/2014 14:41 EST [facility] Comment:Test Performed by [facility] BLOOD SPECIMEN / Unknown 04/26/2014 14:36 EST 04/26/2014 14:41 EST Haim Méndez MD CHEMISTRY & BLOO D GAS ORDERABLES Performing Organization Address [facility] Co de Phone Number [facility] [address] [place] [address] * (ABNORMAL) GLUCOSE, GLUCOMETER (04/26/2014 9:21 EST) Glucose, Fingerstick 208(H) 70 - 100 mg/dl 04/26/2014 9:52 EST [facility] [place] ID [id number] 04/26/2014 9:52 EST [facility] Comment:Test Performed by [facility] BLOOD SPECIMEN / Unknown 04/26/2014 9:21 EST 04/26/2014 9:52 EST Haim Méndez MD CHEMISTRY & BLOO D GAS ORDERABLES Performing Organization Address [facility] Co de Phone Number [facility] [address] [place] [address] * (ABNORMAL) GLUCOSE, GLUCOMETER (04/26/2014 6:41 EST) Glucose, Fingerstick 122(H) 70 - 100 mg/dl 04/26/2014 6:42 EST [facility] [place] ID [id number] 04/26/2014 6:42 EST [facility] Comment:Test Performed by [facility] BLOOD SPECIMEN / Unknown 04/26/2014 6:41 EST 04/26/2014 6:42 EST Haim Méndez MD CHEMISTRY & BLOO D GAS ORDERABLES Performing Organization Address [facility] Co de Phone Number [facility] [address] [place] [address] * (ABNORMAL) GLUCOSE, GLUCOMETER (04/25/2014 23:43 EST) Glucose, Fingerstick 128(H) 70 - 100 mg/dl 04/25/2014 23:49 EST [facility] [place] ID [id number] 04/25/2014 23:49 EST [facility] Comment:Test Performed by [facility] BLOOD SPECIMEN / Unknown 04/25/2014 23:43 EST 04/25/2014 23:49 EST Haim Méndez MD CHEMISTRY & BLOO D GAS ORDERABLES Performing Organization Address City/[facility]/ZIP Co de Phone Number [facility] [address] [place] [address] * (ABNORMAL) GLUCOSE, GLUCOMETER (04/25/2014 21:18 EST) Glucose, Fingerstick 105(H) 70 - 100 mg/dl 04/25/2014 21:20 EST [facility] [place] ID [id number] 04/25/2014 21:20 EST [facility] Comment:Test Performed by [facility] BLOOD SPECIMEN / Unknown 04/25/2014 21:18 EST 04/25/2014 21:20 EST Haim Méndez MD CHEMISTRY & BLOO D GAS ORDERABLES Performing Organization Address City/[facility]/ZIP Co de Phone Number [facility] [address] [place] [address] * (ABNORMAL) GLUCOSE, GLUCOMETER (04/25/2014 18:12 EST) Glucose, Fingerstick 143(H) 70 - 100 mg/dl 04/25/2014 18:22 EST [facility] [place] ID [id number] 04/25/2014 18:22 EST [facility] Comment:Test Performed by [facility] BLOOD SPECIMEN / Unknown 04/25/2014 18:12 EST 04/25/2014 18:22 EST Haim Méndez MD CHEMISTRY & BLOO D GAS ORDERABLES [facility] [address] [place] [address] * (ABNORMAL) GLUCOSE, GLUCOMETER (04/25/2014 14:19 EST) Glucose, Fingerstick 149(H) 70 - 100 mg/dl 04/25/2014 14:20 EST [facility] [place] ID [id number] 04/25/2014 14:20 EST [facility] Comment:Test Performed by [facility] BLOOD SPECIMEN / Unknown 04/25/2014 14:19 EST 04/25/2014 14:20 EST Haim Méndez MD CHEMISTRY & BLOO D GAS ORDERABLES [facility] [address] [place] [address] * NONSTRESS TEST (04/25/2014 14:12 EST) Narrative Haim Méndez MD - 04/25/2014 14:12 EST Haim Méndez MD ? 04/25/2014 14:12 NST Report from [id number] at 0840 Baseline Heart Rate: ??150 ?? Accelerations: ??Only one present Movement: ??present ? Decelerations: ??absent Contractions: ??absent ?? Interpretation: ??Non-reactive but normal variability. Due to being non-reactive, she will go upstairs for a BPP. Note this NST is not separately billable as it will be bundled with the BPP. Haim Méndez MD 04/25/2014 14:11 Procedure Note Haim Méndez MD - 04/25/2014 14:09 EST NST Report from [id number] at 0840 Baseline Heart Rate: 150 Accelerations: Only one present Movement: present Decelerations: absent Contractions: absent Interpretation: Non-reactive but normal variability. Due to beingnon-reactive, she will go upstairs for a BPP. Note this NST is notseparately billable as it will be bundled with the BPP. Haim Méndez MD 04/25/2014 14:11 Sarita Blount MD OB GYNE ORDERABLES * GROUP B STREPTOCOCCUS MOLECULAR DETECTION (04/25/2014 11:33 EST) Group B Streptococcus Molecular Detection No Group B beta streptococcal DNA detected by PCR. 04/26/2014 13:36 EST [facility] Specimen of unknown material (specimen) TOPOGRAPHY UNKNOWN / Unknown 04/25/2014 11:33 EST 04/25/2014 12:09 EST Oriana Hoffman MD MICROBIOLOGY - GENER AL ORDERABLES Performing Organization Address City/State/[facility] Co de Phone Number [facility] [address] [place] [address] * LD US BPP WITH NST (04/25/2014 11:31 EST) Anatomical Region Laterality Modality Other 04/25/2014 11:3 1 EST 04/25/2014 17:53 EST Narrative 04/25/2014 17:53 EST Indication Non-reassuring assessment: non-reactive NST, type 1 diabetes, chronic hypertension. History ======= General History Height 159 cm Height (ft) ?5 ft Height (in) ?3 in Previous Outcomes ?4 Para ?? 2 Children born (T) ??2 Living children (L) ?2 Abortions (A) ??1 Other: Mode of last delivery: Section Maternal Assessment Height 159 cm Height (ft) ?5 ft Height (in) ?3 in Physical Exam Initial weight 81 kg Initial weight (lb) ?178 lb Initial BMI ?32.00 kg/m Number of fetuses: 1. Dating ======= LMP on: ?08/31/2013 GA by LMP ??33 w + 6 d BITA by LMP : ? 06/07/2014 Conception: ?IVF Ovulation: not induced Assigned: ??Dating performed on 03/08/2014 Based on the LMP Assigned GA ?33 w + 6 d Assigned BITA: ??06/07/2014 General Evaluation Cardiac activity: present. FHR 158 bpm. movements: visualized. Presentation: cephalic. Placenta: anterior, fundal. Amniotic Fluid Assessment Normal amount. MVP 7.4 cm. ZHENG 19.5 cm. Q1 7.3 cm, Q2 0.0 cm, Q3 4.8 cm, Q4 7.4 cm. Biophysical Profile Qualitative AFV: 2. breathing movements: 2. Gross body movements: 2. tone: 2. Biophysical profile score: . DVD labeled with maternal MRN (given to [employer] elementary secretary), Duration: 25 minutes. Non Stress Test Reactive FHR: 0 - non-reactive. Baseline rate 150 bpm. Deceleration: absent. Method ======== Transabdominal ultrasound examination, Voluson E8. Sufficient. Impression [id number] Biophysical Profile (including NST) This is a garcia . Please see BPP score above. Follow-up Follow-up with daily NSTs while in the hospital and BPPs weekly once discharged. Comment ========= Her weekly BPPs are already scheduled. Procedure Note 04/25/2014 Indication Non-reassuring assessment: non-reactive NST, type 1 diabetes, chronic hypertension. History ======= General History Height 159 cm Height (ft) 5 ft Height (in) 3 in Previous Outcomes 4 Para 2 Children born (T) 2 Living children (L) 2 Abortions (A) 1 Other: Mode of last delivery: Section Maternal Assessment Height 159 cm Height (ft) 5 ft Height (in) 3 in Physical Exam Initial weight 81 kg Initial weight (lb) 178 lb Initial BMI 32.00 kg/m Number of fetuses: 1. Dating ======= LMP on: 08/31/2013 GA by LMP 33 w + 6 d BITA by LMP : 06/07/2014 Conception: IVF Ovulation: not induced Assigned: Dating performed on 03/08/2014 Based on the LMP Assigned GA 33 w + 6 d Assigned BITA: 06/07/2014 General Evaluation Cardiac activity: present. FHR 158 bpm. movements: visualized. Presentation: cephalic. Placenta: anterior, fundal. Amniotic Fluid Assessment Normal amount. MVP 7.4 cm. ZHENG 19.5 cm. Q1 7.3 cm, Q2 0.0 cm, Q3 4.8 cm, Q4 7.4 cm. Biophysical Profile Qualitative AFV: 2. breathing movements: 2. Gross body movements: 2. tone: 2. Biophysical profile score: 8 / 10. DVD labeled with maternal MRN (given to [employer] elementary secretary), Duration: 25 minutes. Non Stress Test Reactive FHR: 0 - non-reactive. Baseline rate 150 bpm. Deceleration: absent. Method ======== Transabdominal ultrasound examination, Voluson E8. Sufficient. Impression [id number] Biophysical Profile (including NST) This is a garcia . Please see BPP score above. Follow-up Follow-up with daily NSTs while in the hospital and BPPs weekly once discharged. Comment ========= Her weekly BPPs are already scheduled. Oriana Hoffman MD [facility] ORDERABLES * NONSTRESS TEST (04/25/2014 8:07 EST) Narrative Haim Méndez MD - 04/25/2014 8:07 EST Haim Méndez MD ? 04/25/2014 ??8:07 NST Report from [id number] Baseline Heart Rate: ??145 Accelerations: ??absent Movement: ??present ? Decelerations: ??absent Contractions: ??absent ?? Interpretation: ??Non-reactive but normal variability. Dr. Hutson had been notified at the time of the NST. It will be repeated on the morning of 04/25. Haim Méndez MD 04/25/2014 8:06 Procedure Note Haim Méndez MD - 04/24/2014 8:04 EST NST Report from [id number] Baseline Heart Rate: 145 Accelerations: absent Movement: present Decelerations: absent Contractions: absent Interpretation: Non-reactive but normal variability. Dr. Hutson hadbeen notified at the time of the NST. It will be repeated on the morningof 04/25. Haim Méndez MD 04/25/2014 8:06 Sarita Blount MD OB GYNE ORDERABLES * (ABNORMAL) GLUCOSE, GLUCOMETER (04/25/2014 6:34 EST) Glucose, Fingerstick 249(H) 70 - 100 mg/dl 04/25/2014 6:36 EST [facility] [place] ID [id number] 04/25/2014 6:36 EST [facility] Comment:Test Performed by [facility] BLOOD SPECIMEN / Unknown 04/25/2014 6:34 EST 04/25/2014 6:36 EST Haim Méndez MD CHEMISTRY & BLOO D GAS ORDERABLES [facility] [address] [place] [address] * (ABNORMAL) GLUCOSE, GLUCOMETER (04/25/2014 1:37 EST) Glucose, Fingerstick 189(H) 70 - 100 mg/dl 04/25/2014 1:42 EST [facility] [place] ID [id number] 04/25/2014 1:42 EST [facility] Comment:Test Performed by [facility] BLOOD SPECIMEN / Unknown 04/25/2014 1:37 EST 04/25/2014 1:42 EST Haim Méndez MD CHEMISTRY & BLOO D GAS ORDERABLES Performing Organization Address City/[facility]/ZIP Co de Phone Number [facility] [address] [place] [address] * (ABNORMAL) GLUCOSE, GLUCOMETER (04/25/2014 0:44 EST) Glucose, Fingerstick 213(H) 70 - 100 mg/dl 04/25/2014 0:45 EST [facility] [place] ID [id number] 04/25/2014 0:45 EST [facility] Comment:Test Performed by [facility] BLOOD SPECIMEN / Unknown 04/25/2014 0:44 EST 04/25/2014 0:45 EST Haim Méndez MD CHEMISTRY & BLOO D GAS ORDERABLES Performing Organization Address [facility] Co de Phone Number [facility] [address] [place] [address] * (ABNORMAL) GLUCOSE, GLUCOMETER (04/24/2014 23:44 EST) Glucose, Fingerstick 252(H) 70 - 100 mg/dl 04/24/2014 23:46 EST [facility] [place] ID [id number] 04/24/2014 23:46 EST [facility] Comment:Test Performed by [facility] BLOOD SPECIMEN / Unknown 04/24/2014 23:44 EST 04/24/2014 23:46 EST Haim Méndez MD CHEMISTRY & BLOO D GAS ORDERABLES Performing Organization Address City/[facility]/ZIP Co de Phone Number [facility] [address] [place] [address] * (ABNORMAL) GLUCOSE, GLUCOMETER (04/24/2014 22:20 EST) Glucose, Fingerstick 242(H) 70 - 100 mg/dl 04/24/2014 22:22 EST [facility] [place] ID [id number] 04/24/2014 22:22 EST [facility] Comment:Test Performed by [facility] BLOOD SPECIMEN / Unknown 04/24/2014 22:20 EST 04/24/2014 22:22 EST Haim Méndez MD CHEMISTRY & BLOO D GAS ORDERABLES Performing Organization Address [facility]/ZIP Co de Phone Number [facility] [address] [place] [address] * URINE INFORMATION (04/24/2014 21:30 EST) Period 24 hrs 04/24/2014 21:54 EST [facility] Specimen Volume 5,000 mls 04/24/2014 21:54 EST [facility] URINE / Unknown 04/24/2014 2 1:30 EST 04/24/2014 21:53 EST Lilibeth Haines MD URINALYSIS ORDERABLE S Performing Organization Address [facility] Co de Phone Number [facility] [address] [place] [address] * CREATININE, URINE 24HR (04/24/2014 21:30 EST) Creatinine, Urn [place] 22.6 mg/dl 04/24/2014 22:23 EST [facility] Creatinine, 24H Ur Calc 1.1 1.0 - 2.0 g/24 hrs 04/24/2014 22:23 EST [facility] Urine specimen (specimen) URINE / Unknown 04/24/2014 21:30 EST 04/24/2014 21:53 EST Sarita Blount MD URINALYSIS ORDERABLE S Performing Organization Address [facility] Co de Phone Number [facility] [address] [place] [address] * (ABNORMAL) TOTAL PROTEIN, URINE 24HR (04/24/2014 21:30 EST) Tot Prot,Ur Random 11 mg/dl 04/24/2014 22:23 EST [facility] Tot Prot,24h Calc. 550(H) <150 mg/24hr 04/24/2014 22:23 EST [facility] Urine specimen (specimen) URINE / Unknown 04/24/2014 21:30 EST 04/24/2014 21:53 EST Sairta Blount MD URINALYSIS ORDERABLE S Performing Organization Address [facility] Co de Phone Number [facility] [address] [place] [address] * (ABNORMAL) GLUCOSE, GLUCOMETER (04/24/2014 20:36 EST) Glucose, Fingerstick 153(H) 70 - 100 mg/dl 04/24/2014 20:48 EST [facility] [place] ID [id number] 04/24/2014 20:48 EST [facility] Comment:Test Performed by [facility] BLOOD SPECIMEN / Unknown 04/24/2014 20:36 EST 04/24/2014 20:48 EST Haim Méndez MD CHEMISTRY & BLOO D GAS ORDERABLES Performing Organization Address [facility] Co de Phone Number [facility] [address] [place] [address] * (ABNORMAL) GLUCOSE, GLUCOMETER (04/24/2014 16:40 EST) Glucose, Fingerstick 221(H) 70 - 100 mg/dl 04/24/2014 16:41 EST [facility] [place] ID [id number] 04/24/2014 16:41 EST [facility] Comment:Test Performed by [facility] BLOOD SPECIMEN / Unknown 04/24/2014 16:40 EST 04/24/2014 16:41 EST Haim Méndez MD CHEMISTRY & BLOO D GAS ORDERABLES Performing Organization Address City/[facility]/ZIP Co de Phone Number [facility] [address] [place] [address] * (ABNORMAL) GLUCOSE, GLUCOMETER (04/24/2014 15:35 EST) Glucose, Fingerstick 226(H) 70 - 100 mg/dl 04/24/2014 15:37 EST [facility] [place] ID [id number] 04/24/2014 15:37 EST [facility] Comment:Test Performed by [facility] BLOOD SPECIMEN / Unknown 04/24/2014 15:35 EST 04/24/2014 15:37 EST Haim Méndez MD CHEMISTRY & BLOO D GAS ORDERABLES Performing Organization Address City/[facility]/ZIP Co de Phone Number [facility] [address] [place] [address] * (ABNORMAL) GLUCOSE, GLUCOMETER (04/24/2014 13:30 EST) Glucose, Fingerstick 186(H) 70 - 100 mg/dl 04/24/2014 13:32 EST [facility] [place] ID [id number] 04/24/2014 13:32 EST [facility] Comment:Test Performed by [facility] BLOOD SPECIMEN / Unknown 04/24/2014 13:30 EST 04/24/2014 13:32 EST Haim Méndez MD CHEMISTRY & BLOO D GAS ORDERABLES Performing Organization Address [facility] Co de Phone Number [facility] [address] [place] [address] * (ABNORMAL) GLUCOSE, GLUCOMETER (04/24/2014 12:43 EST) Glucose, Fingerstick 220(H) 70 - 100 mg/dl 04/24/2014 12:46 EST [facility] [place] ID [id number] 04/24/2014 12:46 EST [facility] Comment:Test Performed by [facility] BLOOD SPECIMEN / Unknown 04/24/2014 12:43 EST 04/24/2014 12:46 EST Haim Méndez MD CHEMISTRY & BLOO D GAS ORDERABLES Performing Organization Address City/[facility]/ZIP Co de Phone Number [facility] [address] [place] [address] * (ABNORMAL) GLUCOSE, GLUCOMETER (04/24/2014 10:57 EST) Glucose, Fingerstick 301(H) 70 - 100 mg/dl 04/24/2014 11:01 EST [facility] [place] ID [id number] 04/24/2014 11:01 EST [facility] Comment:[facility] BLOOD SPECIMEN / Unknown 04/24/2014 10:57 EST 04/24/2014 11:01 EST Haim Méndez MD CHEMISTRY & BLOO D GAS ORDERABLES Performing Organization Address [facility]/ZIP Co de Phone Number [facility] [address] [place] [address] * URIC ACID (04/24/2014 7:45 EST) Uric Acid 4.0 2.2 - 7.7 mg/dl 04/24/2014 8:14 EST [facility] Blood specimen (specimen) BLOOD SPECIMEN / Unknown 04/24/2014 7:45 EST 04/24/2014 7:50 EST Sarita Blount MD CHEMISTRY & BLOOD GA S ORDERABLES Performing Organization Address [facility] Co de Phone Number [facility] [address] [place] [address] * (ABNORMAL) FIBRINOGEN (04/24/2014 7:45 EST) Fibrinogen 528(H) 171 - 384 mg/dl 04/24/2014 8:55 EST [facility] Blood specimen (specimen) BLOOD SPECIMEN / Unknown 04/24/2014 7:45 EST 04/24/2014 7:50 EST Sarita Blount MD HEMATOLOGY & PF4 ORD ERABLES Performing Organization Address [facility] Co de Phone Number [facility] [address] [place] [address] * (ABNORMAL) LDH (04/24/2014 7:45 EST) LDH 301(L) 313 - 618 U/L 04/24/2014 8:14 EST [facility] Blood specimen (specimen) BLOOD SPECIMEN / Unknown 04/24/2014 7:45 EST 04/24/2014 7:50 EST Sarita Blount MD CHEMISTRY & BLOOD GA S ORDERABLES Performing Organization Address [facility] de Phone Number [facility] [address] [place] [address] * (ABNORMAL) AST (04/24/2014 7:45 EST) AST 13(L) 15 - 46 U/L 04/24/2014 8:14 EST [facility] Blood specimen (specimen) BLOOD SPECIMEN / Unknown 04/24/2014 7:45 EST 04/24/2014 7:50 EST Sarita Blount MD CHEMISTRY & BLOOD GA S ORDERABLES Performing Organization Address [facility] Phone Number [facility] [address] [place] [address] * ALT (04/24/2014 7:45 EST) ALT 21 <53 U/L 04/24/2014 8:14 EST [facility] Blood specimen (specimen) BLOOD SPECIMEN / Unknown 04/24/2014 7:45 EST 04/24/2014 7:50 EST Sarita Blount MD CHEMISTRY & BLOOD GA S ORDERABLES Performing Organization Address [facility] Phone Number [facility] [address] [place] [address] * (ABNORMAL) CREATININE (04/24/2014 7:45 EST) Creatinine 0.40(L) 0.52 - 1.04 mg/dl 04/24/2014 8:14 EST [facility] GFR, Calculated >60 >60 ml/min/1.7 3m2 04/24/2014 8:14 [facility] Blood specimen (specimen) BLOOD SPECIMEN / Unknown 04/24/2014 7:45 EST 04/24/2014 7:50 EST Sarita Blount MD CHEMISTRY & BLOOD GA S ORDERABLES [facility] [address] [place] [address] * (ABNORMAL) HEMAGRAM (04/24/2014 7:45 EST) WBC 17.08(H) 4.0 - 12.4 K/cmm 04/24/2014 8:20 EST [facility] RBC 3.99 3.86 - 5.04 M/cmm 04/24/2014 8:20 [facility] Hemoglobin 12.7 11.6 - 15.2 gm/dl 04/24/2014 8:20 [facility] HCT 37.3 34.9 - 44.4 % 04/24/2014 8:20 [facility] MCV 93 81 - 98 fl 04/24/2014 8:20 [facility] MCH 31.8 26.7 - 33.3 pg 04/24/2014 8:20 [facility] MCHC 34.0 32.1 - 35.9 gm/dl 04/24/2014 8:20 [facility] PLT 326(H) 141 - 320 K/cmm 04/24/2014 8:20 [facility] RDW-CV 12.8 11.7 - 14.6 % 04/24/2014 8:20 [facility] Blood specimen (specimen) BLOOD SPECIMEN / Unknown 04/24/2014 7:45 EST 04/24/2014 7:50 EST Sarita Blount MD HEMATOLOGY & PF4 ORD ERABLES [facility] [address] [place] [address] * (ABNORMAL) GLUCOSE, GLUCOMETER (04/24/2014 7:27 EST) Glucose, Fingerstick 205(H) 70 - 100 mg/dl 04/24/2014 7:30 [facility] Bra[place] ID [id number] 04/24/2014 7:30 [facility] Comment:Test Performed by [facility] BLOOD SPECIMEN / Unknown 04/24/2014 7:27 EST 04/24/2014 7:30 EST Haim Méndez MD CHEMISTRY & BLOO D GAS ORDERABLES Performing Organization Address City/[facility]/ZIP Co de Phone Number [facility] [address] [place] [address] * (ABNORMAL) GLUCOSE, GLUCOMETER (04/24/2014 0:26 EST) Glucose, Fingerstick 213(H) 70 - 100 mg/dl 04/24/2014 0:27 [facility] [place]oder ID [id number] 04/24/2014 0:27 [facility] Comment:[facility] BLOOD SPECIMEN / Unknown 04/24/2014 0:26 EST 04/24/2014 0:27 EST Haim Méndez MD CHEMISTRY & BLOO D GAS ORDERABLES Performing Organization Address City/[facility] Co de Phone Number [facility] [address] [place] [address] * INPATIENT ADD-ON (04/23/2014 23:10 EST) Tests to be added CRP DIFFERENTIAL 04/23/2014 23:10 [facility] Comment:CRP Number for problems Not Given 04/23/2014 23:22 [facility] Accession number [id number] 04/23/2014 23:22 [facility] TOPOGRAPHY UNKNOWN / Unknown 04/23/2014 23:10 EST 04/23/2014 23:22 EST Anthony Monterroso MD HEMATOLOGY & PF4 ORDERABLES Performing Organization Address City/[facility]/ZIP Co de Phone Number [facility] [address] [place] [address] * (ABNORMAL) GLUCOSE, GLUCOMETER (04/23/2014 22:09 EST) Glucose, Fingerstick 256(H) 70 - 100 mg/dl 04/23/2014 22:10 EST [facility] [place]oder ID [id number] 04/23/2014 22:10 EST [facility] Comment:Test Performed by [facility] BLOOD SPECIMEN / Unknown 04/23/2014 22:09 EST 04/23/2014 22:10 EST Haim Méndez MD CHEMISTRY & BLOO D GAS ORDERABLES [facility] [address] [place] [address] * UA REFLEX (04/23/2014 21:31 EST) UA Billing Microscopic not indicated. 04/23/2014 22:11 EST [facility] URINE / Unknown 04/23/2014 2 1:31 EST 04/23/2014 21:52 EST Sarita Blount MD URINALYSIS ORDERABLE S Performing Organization Address [facility] Co de Phone Number [facility] [address] [place] [address] * CREATININE, URINE RANDOM (04/23/2014 21:31 EST) Creatinine, Urn [place] 16.3 mg/dl 04/23/2014 22:26 EST [facility] Urine specimen (specimen) URINE / Unknown 04/23/2014 21:31 EST 04/23/2014 21:53 EST Sarita Blount MD URINALYSIS ORDERABLE S Performing Organization Address [facility] [facility] Co de Phone Number [facility] [address] [place] [address] * TOTAL PROTEIN, URINE RANDOM (04/23/2014 21:31 EST) Tot Prot,Ur Random 10 mg/dl 04/23/2014 22:26 EST [facility] Urine specimen (specimen) URINE / Unknown 04/23/2014 21:31 EST 04/23/2014 21:53 EST Sarita Blount MD URINALYSIS ORDERABLE S Performing Organization Address [facility] Co de Phone Number [facility] [address] [place] [address] * URINE CULTURE IF UA POSITIVE - NON POCT URINALYSIS ONLY (04/23/2014 21:31 EST) Culture if Indicated Culture not indicated by urinalysis results. 04/23/2014 22:11 [facility] Urine specimen (specimen) TOPOGRAPHY UNKNOWN / Unknown 04/23/2014 21:31 EST 04/23/2014 21:52 EST Sarita Blount MD MICROBIOLOGY - GENER AL ORDERABLES Performing Organization Address [facility] Co de Phone Number [facility] [address] [place] [address] * (ABNORMAL) URINALYSIS (04/23/2014 21:31 EST) Color, UA Yellow 04/23/2014 22:11 [facility] Clarity, UA Clear 04/23/2014 22:11 [facility] Glucose, UA 3+(A) Neg 04/23/2014 22:11 [facility] Bilirubin, UA Neg Neg 04/23/2014 22:11 [facility] Ketones, UA Trace(A) Neg 04/23/2014 22:11 [facility] Specific Holt, Urine 1.015 1.001 - 1.035 04/23/2014 22:11 [facility] Blood, UA Neg Neg 04/23/2014 22:11 [facility] pH, UA 5.5 4.6 - 8.0 04/23/2014 22:11 [facility] Protein, UA Neg Neg 04/23/2014 22:11 [facility] Urobilinogen, UA 0.2 0.2 - 1.0 E.U./dl 04/23/2014 22:11 [facility] Nitrite, UA Neg Neg 04/23/2014 22:11 [facility] Leuk Esterase Neg Neg 04/23/2014 22:11 [facility] Urine specimen (specimen) URINE / Unknown 04/23/2014 21:31 EST 04/23/2014 21:52 EST Sarita Blount MD URINALYSIS ORDERABLE S Performing Organization Address City/State/[facility] Co de Phone Number [facility] [address] [place] [address] * (ABNORMAL) DIFFERENTIAL (04/23/2014 21:29 EST) Neutrophils 64.0 45.5 - 79.7 % 04/23/2014 23:37 [facility] % Bands 1.0 % 04/23/2014 23:37 [facility] Lymphocytes 30.0 15.0 - 46.8 % 04/23/2014 23:37 [facility] Monocytes 4.0 1.8 - 12.0 % 04/23/2014 23:37 [facility] Eosinophils 1.0 0.6 - 6.9 % 04/23/2014 23:37 [facility] ABS Neutrophils 13.03(H) 2.20 - 8.85 K/cmm 04/23/2014 23:37 [facility] ABS Bands 0.20 K/cmm 04/23/2014 23:37 [facility] ABS Lymphs 6.11(H) 1.09 - 3.30 K/cmm 04/23/2014 23:37 [facility] ABS Monocytes 0.81(H) 0.1 - 0.8 K/cmm 04/23/2014 23:37 [facility] ABS Eosinophils 0.20 0.03 - 0.61 K/cmm 04/23/2014 23:37 [facility] Type of Diff: Manual 04/23/2014 23:37 [facility] BLOOD SPECIMEN / Unknown 04/23/2014 21:29 EST 04/23/2014 22:26 EST Sarita Blount MD HEMATOLOGY & PF4 ORD ERABLES Performing Organization Address City/[facility] Co de Phone Number [facility] [address] [place] [address] * (ABNORMAL) C-REACTIVE PROTEIN (04/23/2014 21:29 EST) C-Reactive Protein 1.1(H) <1.0 mg/dl 04/23/2014 23:38 EST [facility] BLOOD SPECIMEN / Unknown 04/23/2014 21:29 EST 04/23/2014 22:26 EST Sarita Blount MD CHEMISTRY & BLOOD GA S ORDERABLES Performing Organization Address [facility] Co de Phone Number [facility] [address] [place] [address] * BLOOD BANK SPECIMEN HOLD (04/23/2014 21:29 EST) Hold BB Spec will exp at 23:59, 3 days from collect date [facility] Comment:specimen was drawn o n 04/23/2014 Blood specimen (specimen) 04/23/2014 21:29 EST Sarita Blount MD BLOOD BANK TESTS Performing Organization Address [facility] Co de Phone Number [facility] * LDH (04/23/2014 21:29 EST) LDH 355 313 - 618 U/L 04/23/2014 22:55 EST [facility] Blood specimen (specimen) BLOOD SPECIMEN / Unknown 04/23/2014 21:29 EST 04/23/2014 22:26 EST Sarita Blount MD CHEMISTRY & BLOOD GA S ORDERABLES Performing Organization Address [facility]/ZIP Co de Phone Number [facility] [address] [place] [address] * (ABNORMAL) FIBRINOGEN (04/23/2014 21:29 EST) Fibrinogen 587(H) 171 - 384 mg/dl 04/23/2014 22:43 EST [facility] Blood specimen (specimen) BLOOD SPECIMEN / Unknown 04/23/2014 21:29 EST 04/23/2014 22:26 EST Sarita Blount MD HEMATOLOGY & PF4 ORD ERABLES Performing Organization Address [facility] de Phone Number [facility] [address] [place] [address] * ALT (04/23/2014 21:29 EST) ALT 20 <53 U/L 04/23/2014 22:55 EST [facility] Blood specimen (specimen) BLOOD SPECIMEN / Unknown 04/23/2014 21:29 EST 04/23/2014 22:26 EST Sarita Blount MD CHEMISTRY & BLOOD GA S ORDERABLES Performing Organization Address [facility] de Phone Number [facility] [address] [place] [address] * AST (04/23/2014 21:29 EST) AST 15 15 - 46 U/L 04/23/2014 22:55 EST [facility] Blood specimen (specimen) BLOOD SPECIMEN / Unknown 04/23/2014 21:29 EST 04/23/2014 22:26 EST Sarita Blount MD CHEMISTRY & BLOOD GA S ORDERABLES Performing Organization Address [facility] de Phone Number [facility] [address] [place] [address] * URIC ACID (04/23/2014 21:29 EST) Uric Acid 3.8 2.2 - 7.7 mg/dl 04/23/2014 22:55 EST [facility] Blood specimen (specimen) BLOOD SPECIMEN / Unknown 04/23/2014 21:29 EST 04/23/2014 22:26 EST Sarita Blount MD CHEMISTRY & BLOOD GA S ORDERABLES Performing Organization Address City/[facility]/ZIP Co de Phone Number [facility] [address] [place] [address] * (ABNORMAL) CREATININE (04/23/2014 21:29 EST) Creatinine 0.40(L) 0.52 - 1.04 mg/dl 04/23/2014 22:55 EST [facility] GFR, Calculated >60 >60 ml/min/1.7 3m2 04/23/2014 22:55 EST [facility] Blood specimen (specimen) BLOOD SPECIMEN / Unknown 04/23/2014 21:29 EST 04/23/2014 22:26 EST Sarita Blount MD CHEMISTRY & BLOOD GA S ORDERABLES Performing Organization Address [facility] Co de Phone Number [facility] [address] [place] [address] * (ABNORMAL) BUN (04/23/2014 21:29 EST) BUN 7(L) 10 - 26 mg/dl 04/23/2014 22:55 EST [facility] Blood specimen (specimen) BLOOD SPECIMEN / Unknown 04/23/2014 21:29 EST 04/23/2014 22:26 EST Sarita Blount MD CHEMISTRY & BLOOD GA S ORDERABLES Performing Organization Address City/[facility] Co de Phone Number [facility] [address] [place] [address] * (ABNORMAL) HEMAGRAM (04/23/2014 21:29 EST) WBC 20.35(H) 4.0 - 12.4 K/cmm 04/23/2014 22:39 EST [facility] RBC 4.48 3.86 - 5.04 M/cmm 04/23/2014 22:39 [facility] Hemoglobin 14.3 11.6 - 15.2 gm/dl 04/23/2014 22:39 [facility] HCT 41.7 34.9 - 44.4 % 04/23/2014 22:39 [facility] MCV 93 81 - 98 fl 04/23/2014 22:39 EST [facility] MCH 31.9 26.7 - 33.3 pg 04/23/2014 22:39 [facility] MCHC 34.2 32.1 - 35.9 gm/dl 04/23/2014 22:39 [facility] PLT 334(H) 141 - 320 K/cmm 04/23/2014 22:39 [facility] RDW-CV 12.6 11.7 - 14.6 % 04/23/2014 22:39 [facility] Blood specimen (specimen) BLOOD SPECIMEN / Unknown 04/23/2014 21:29 EST 04/23/2014 22:26 EST Sarita Blount MD HEMATOLOGY & PF4 ORD ERABLES Performing Organization Address City/State/[facility] Co de Phone Number [facility] [address] [place] [address] documented in this encounter Visit Diagnoses Diagnosis Type II or unspecified type diabetes mellitus without mention of complication, uncontrolled Chronic hypertension with exacerbation during in third trimester Diabetes mellitus, antepartum(648.03) Diabetes mellitus, antepartum Non-reassuring heart tones complicating , antepartum Abnormality in heart rate/rhythm, antepartum condition or complication Abnormal maternal glucose tolerance, antepartum Chronic hypertension with exacerbation during in third trimester Type 2 diabetes mellitus ([facility]) Type II or unspecified type diabetes mellitus without mention of complication, not stated as uncontrolled Diabetes mellitus, antepartum(648.03) Diabetes mellitus, antepartum documented in this encounter Administered Medications Inactive Administered Medications - up to 3 most recent administrations Medication Order MAR Action Action Date Dose Rate Site acetaminophen (TYLENOL) tablet 650 mg 650 mg, oral, EVERY 4 HOURS PRN, Starting on 04/24/14 at 0214, Until 04/27/14 at 1904, Pain, Routine Given 04/27/2014 13:04 EST 650 mg Given 04/27/2014 7:14 EST 650 mg Given 04/26/2014 18:14 EST 650 mg cyclobenzaprine (FLEXERIL) tablet 10 mg 10 mg, oral, 2 TIMES DAILY, First dose on 04/24/14 at 0030, Until Discontinued, Routine Given 04/24/2014 8:31 EST 1 0 mg Given 04/24/2014 0:56 EST 10 mg cyclobenzaprine (FLEXERIL) tablet 10 mg 10 mg, oral, DAILY, First dose (after last modification) on 04/25/14 at 0900, Until Discontinued, Routine Given 04/27/2014 8:54 EST 10 mg Given 04/26/2014 9:23 EST 10 mg Given 04/25/2014 9:18 EST 10 mg cyclobenzaprine (FLEXERIL) tablet 20 mg 20 mg, oral, AT BEDTIME, First dose on 04/24/14 at 2100, Until Discontinued, Routine Given 04/26/2014 21:20 EST 10 mg Given 04/25/2014 23:44 EST 20 mg Given 04/24/2014 22:07 EST 20 mg dexmethylphenidate (FOCALIN) tablet 10 mg 10 mg, oral, USER SPECIFIED (3 times per day), First dose on 04/24/14 at 0700, Until Discontinued Given 04/27/2014 16:16 EST 10 mg Given 04/27/2014 10:22 EST 10 mg Given 04/26/2014 18:14 EST 10 mg gabapentin (NEURONTIN) capsule 1,500 mg 1,500 mg, oral, USER SPECIFIED (Daily), First dose (after last modification) on 04/24/14 at 0030, Until Discontinued, Routine Given 04/27/2014 0:32 EST 1,500 mg Given 04/25/2014 23:43 EST 1,500 mg Given 04/24/2014 23:49 EST 1,500 mg insulin aspart (NOVOLOG FLEXPEN) injection 10 Units 10 Units, subcutaneous, NOW X1, 1 dose, On 04/24/14 at 1130, Routine Given 04/24/2014 11:36 EST 10 Units insulin aspart (NOVOLOG FLEXPEN) injection 10 Units 10 Units, subcutaneous, Once (Without Time Specified), 1 dose, Starting on 04/24/14 at 1455, Until 04/24/14 at 1539, Routine Given 04/24/2014 15:39 EST 10 Units insulin aspart (NOVOLOG FLEXPEN) injection 10 Units 10 Units, subcutaneous, NOW X1, 1 dose, On 04/25/14 at 0000, Routine Given 04/24/2014 23:49 EST 10 Units insulin aspart (NOVOLOG FLEXPEN) injection 10 Units 10 Units, subcutaneous, NOW X1, 1 dose, On [place] 04/25/14 at 0145, Routine Given 04/25/2014 1:37 EST 10 Units insulin aspart (NOVOLOG FLEXPEN) injection 15 Units 15 Units, subcutaneous, NOW X1, 1 dose, On 04/24/14 at 1015, Routine Given 04/24/2014 9:45 EST 15 Units Abdomin al Tissue insulin aspart (NOVOLOG FLEXPEN) injection 15 Units 15 Units, subcutaneous, 3 TIMES DAILY WITH MEALS, First dose (after last modification) on [place] 04/25/14 at 1200, Until Discontinued, Routine Given 04/27/2014 13:02 EST 15 Units Abdominal Tissue Given by Other 04/27/2014 7:46 EST 15 Units Given 04/26/2014 21:23 EST 15 Units insulin aspart (NOVOLOG FLEXPEN) injection 20 Units 20 Units, subcutaneous, DAILY BEFORE BREAKFAST, First dose (after last modification) on [place] 04/25/14 at 0700, Until Discontinued, Routine Given 04/25/2014 7:24 EST 20 Units insulin aspart (NOVOLOG FLEXPEN) injection 20 Units 20 Units, subcutaneous, DAILY BEFORE DINNER, First dose (after last modification) on [facility] 04/24/14 at 1715, Until Discontinued, Routine Given 04/24/2014 20:37 EST 20 Units insulin aspart (NOVOLOG FLEXPEN) injection subcutaneous, 3 TIMES DAILY WITH MEALS, First dose on [facility] 04/24/14 at 0800, Until Discontinued, Routine Given 04/24/2014 8:37 EST 3 Units Abdominal Tissue insulin aspart (NOVOLOG FLEXPEN) injection subcutaneous, 3 TIMES DAILY WITH MEALS, First dose on [place] 04/25/14 at 1200, Until Discontinued, Routine Given 04/27/2014 12:59 EST 1 Units Abdominal Tissue Given 04/25/2014 15:28 EST 1 Units insulin glargine (LANTUS SOLOSTAR) injection pen 15 Units 15 Units, subcutaneous, ONCE DAILY L.A. INSULIN, First dose on [place] 04/25/14 at 2000, Until Discontinued, Routine Given 04/25/2014 23:57 EST 15 Units insulin glargine (LANTUS SOLOSTAR) injection pen 20 Units 20 Units, subcutaneous, ONCE DAILY L.A. INSULIN, First dose (after last modification) on Sat04/26/14 at 2000, Until Discontinued, Routine Given 04/26/2014 21:16 EST 20 Units insulin glargine (LANTUS SOLOSTAR) injection pen 35 Units 35 Units, subcutaneous, AT BEDTIME, First dose on Sat04/23/14 at 2300, Until Discontinued, Routine Given 04/24/2014 0:28 EST 35 Units insulin NPH (HUMULIN N, NOVOLIN N) injection 12 Units 12 Units, subcutaneous, DAILY, 5 doses, First dose on Sat04/24/14 at 2200, Last dose on Sat04/28/14 at 2200 Given 04/24/2014 22:41 EST 12 Units insulin NPH (HUMULIN N, NOVOLIN N) injection 30 Units 30 Units, subcutaneous, DAILY BEFORE BREAKFAST, 5 doses, First dose on Sat04/24/14 at 1000, Last dose on Sat04/28/14 at 0700, Routine Given 04/24/2014 9:54 EST 30 Units Abdominal Tissue insulin NPH (HUMULIN N, NOVOLIN N) injection 35 Units 35 Units, subcutaneous, DAILY BEFORE BREAKFAST, 4 doses, First dose (after last modification) on Sat04/25/14 at 0700, Last dose on Sat04/28/14 at 0700, Routine Given 04/25/2014 7:24 EST 35 Units labetalol (NORMODYNE) tablet 200 mg 200 mg, oral, NOW X1, 1 dose, On Sat04/23/14 at 2230, Routine Given 04/23/2014 22:15 EST 200 mg labetalol (NORMODYNE) tablet 200 mg 200 mg, oral, EVERY 12 HOURS, First dose on Sat04/24/14 at 0900, Until Discontinued, Routine Given 04/27/2014 8:53 EST 200 mg Given 04/26/2014 21:16 EST 200 mg Given 04/26/2014 9:27 EST 200 mg multivitamin vit-iron fumarate-FA (STUARTNATAL) 27 mg iron- 1 mg tablet 1 Tab 1 Tablet, oral, DAILY, First dose on Sat04/24/14 at 0900, Until Discontinued, Routine Given 04/27/2014 10: 22 EST 1 Tablet Given 04/26/2014 9:23 EST 1 Tablet Given 04/25/2014 9:16 EST 1 Tablet prochlorperazine (COMPAZINE) tablet 5 mg 5 mg, oral, EVERY 6 HOURS PRN, Starting on Sat04/24/14 at 1643, Until Sat04/27/14 at 1904, Nausea, Routine Given 04/24/2014 17:17 EST 5 mg QUEtiapine (SEROQUEL) tablet 200 mg 200 mg, oral, 2 TIMES DAILY, First dose on Sat04/23/14 at 2300, Until Discontinued, Routine Given 04/25/2014 22:[address] 200 mg Given 04/24/2014 22:07 EST 200 mg Given 04/24/2014 0:31 EST 200 mg QUEtiapine (SEROQUEL) tablet 200 mg 200 mg, oral, AT BEDTIME, First dose (after last modification) on Sat04/26/14 at 2100, Until Discontinued, Routine Given 04/26/2014 21:16 EST 200 mg ranitidine (ZANTAC) tablet 300 mg 300 mg, oral, 2 TIMES DAILY, First dose on Sat04/23/14 at 2300, Until Discontinued, Routine Given 04/27/2014 8:53 EST 3 00 mg Given 04/26/2014 9:23 EST 300 mg Given 04/25/2014 22:05 EST 300 mg sodium chloride 0.9 % flush 3 mL 3 mL, intravenous, EVERY 8 HOURS, First dose on Sat04/24/14 at 0230, Until Discontinued, Routine Given 04/27/2014 9:00 EST 3 mL Given 04/27/2014 0:20 EST 3 mL Given 04/26/2014 17:16 EST 3 mL documented in this encounter Discontinued Medications Medication Sig Discontinue Reason Start Date End Da te insulin pen needles 31G x 5/16 BD UltraFine Short. Will be using 4 pen needles per day at this point.. 04/19/2014 04/27/2014 acetaminophen (TYLENOL) 500 mg tablet Take 2 Tabs by mouth every 4 hours as needed. 04/27/2014 lidocaine 5 % (LIDODERM) 5 %(700 mg/patch) patch Apply patch to her back or hip as needed for pain 05/06/2013 04/27/2014 insulin glargine (LANTUS SOLOSTAR) 100 unit/mL (3 mL) injection pen Begin with 35 units of lantus at bedtime, dose will increase with her . 04/19/2014 04/27/2014 insulin aspart (NOVOLOG FLEXPEN) 100 unit/mL injectable pen Begin with 8 units of novolog with each meal, dosing will increase with as her progresses.. 04/19/2014 04/27/2014 documented as of this encounter Historical Medications * This list may reflect changes made after this encounter. Medication Sig Dispensed Refills Start Date End Date ranitidine (ZANTAC) 150 mg tablet Take 300 mg by mouth 2 times daily. added in this encounter Active and Recently Administered Medications Times are shown in EST. Scheduled Medication Order 04/25/2014 04/26/2014 04/27/2014 cyclobenzaprine (FLEXERIL) tablet 10 mg (CANCELED) 10 mg, oral, DAILY, First dose (after last modification) on 04/25/14 at 0900, Until Discontinued, Routine 0918 (Given - Provider: Steph Chavez RN) 0923 (Given - Provider: Phong Best RN IBCLC) 0854 (Given - Provider: Marisol Martinez, PRISCILA) cyclobenzaprine (FLEXERIL) tablet 20 mg (CANCELED) 20 mg, oral, AT BEDTIME, First dose on 04/24/14 at 2100, Until Discontinued, Routine 2344 (Given - Provider: Stacy Galindo, PRISCILA) 2120 (Given - Provider: Phong Best RN IBCLC - Comment: half dose given. Pt doesn't want full dose.) dexmethylphenidate (FOCALIN) tablet 10 mg (CANCELED) 10 mg, oral, USER SPECIFIED (3 times per day), First dose on 04/24/14 at 0700, Until Discontinued 0916 (Given - Provider: Steph Chavez RN - Comment: Trying to get the XR per pt. Will give this dose as ordered.)1526 (Given - Provider: Steph Chavez RN)1700 (Due) 0922 (Given - Provider: Phong Best RN IBCLC)1528 (Given - Provider: Phong Best RN IBCLC - Comment: pt off floor)1715 (Hold - Provider: Phong Best RN IBCLC - Reason: Other - Comment: last dose too close. pt wants to wait an hour.)1814 (Given - Provider: Phong Best, RN IBCLC) 1022 (Given - Provider: Marisol Martinez RN)1502 (Hold - Provider: Marisol Martinez RN - Reason: Order parameters not met)1616 (Given - Provider: Marisol Martinez RN) gabapentin (NEURONTIN) capsule 1,500 mg (CANCELED) 1,500 mg, oral, USER SPECIFIED (Daily), First dose (after last modification) on 04/24/14 at 0030, Until Discontinued, Routine 2343 (Given - Provider: Stacy Galindo RN) 0032 (Given - Provider: Melissa Corado RN) insulin aspart (NOVOLOG FLEXPEN) injection 10 Units (COMPLETED) 10 Units, subcutaneous, NOW X1, 1 dose, On 04/25/14 at 0145, Routine 0137 (Given - Provider: Stacy Galindo RN) insulin aspart (NOVOLOG FLEXPEN) injection 15 Units 15 Units, subcutaneous, 3 TIMES DAILY WITH MEALS, First dose (after last modification) on 04/25/14 at 1200, Until Discontinued, Routine 1527 (Given - Provider: Steph Chavez RN)2123 (Given - Provider: Stacy Galindo RN) 0722 (Given - Provider: Stacy Galindo, PRISCILA)1440 (Given - Provider: Rox Floyd RN)2123 (Given - Provider: Phong Best RN IBCLC) 0746 (Given by Other - Provider: Marisol Martinez RN - Comment: pt gave to self after we set it up.)1302 (Given - Provider: Marisol Martinez RN - Comment: just got food. gave one injection combined with slide scale) insulin aspart (NOVOLOG FLEXPEN) injection 20 Units (CANCELED) 20 Units, subcutaneous, DAILY BEFORE BREAKFAST, First dose (after last modification) on 04/25/14 at 0700, Until Discontinued, Routine 0724 (Given - Provider: Steph Chavez RN) insulin aspart (NOVOLOG FLEXPEN) injection (CANCELED) subcutaneous, 3 TIMES DAILY WITH MEALS, First dose on 04/25/14 at 1200, Until Discontinued, Routine 1528 (Given - Provider: Steph Chavez RN)2120 (Not Given - Provider: Stacy Galindo RN - Reason: Order parameters not met) 0725 (Not Given - Provider: Stacy Galindo RN - Reason: Order parameters not met - Comment: BG 122)1440 (Not Given - Provider: Rox Floyd RN - Reason: Order parameters not met)2115 (Not Given - Provider: Phong Best RN IBCLC - Reason: Order parameters not met - Comment: BG 132) 0755 (Not Given - Provider: Marisol Martinez RN - Reason: Order parameters not met)1259 (Given - Provider: Marisol Martinez RN - Comment: give to self) insulin glargine (LANTUS SOLOSTAR) injection pen 15 Units (CANCELED) 15 Units, subcutaneous, ONCE DAILY L.A. INSULIN, First dose on 04/25/14 at 1999, Until Discontinued, Routine 2356 (Given - Provider: Stacy Galindo RN) insulin glargine (LANTUS SOLOSTAR) injection pen 20 Units 20 Units, subcutaneous, ONCE DAILY L.A. INSULIN, First dose (after last modification) on 04/26/14 at 2000, Until Discontinued, Routine 2115 (Given - Provider: Phong Best RN IBCLC) insulin NPH (HUMULIN N, NOVOLIN N) injection 35 Units (CANCELED) 35 Units, subcutaneous, DAILY BEFORE BREAKFAST, 4 doses, First dose (after last modification) on 04/25/14 at 0700, Last dose on Sat04/28/14 at 0700, Routine 0724 (Given - Provider: Steph Chavez RN) labetalol (NORMODYNE) tablet 200 mg 200 mg, oral, EVERY 12 HOURS, First dose on 04/24/14 at 0900, Until Discontinued, Routine 09 (Given - Provider: Steph Chavez RN)2204 (Given - Provider: Stacy Galindo RN) 09 (Given - Provider: Phong Best RN IBCLC - Comment: BP 141/76 Pulse 110)2115 (Given - Provider: Phong Best RN IBCLC) 0853 (Given - Provider: Marisol Martinez RN) multivitamin vit-iron fumarate-FA (STUARTNATAL) 27 mg iron- 1 mg tablet 1 Tab (CANCELED) 1 Tablet, oral, DAILY, First dose on Sat04/24/14 at 0900, Until Discontinued, Routine 0916 (Given - Provider: Steph Chavez RN) 0923 (Given - Provider: Phong Best RN IBCLC) 1022 (Given - Provider: Marisol Martinez, RN) QUEtiapine (SEROQUEL) tablet 200 mg (CANCELED) 200 mg, oral, 2 TIMES DAILY, First dose on Sat04/23/14 at 2300, Until Discontinued, Routine 0916 (Not Given - Provider: Steph Chavez RN - Reason: Patient/family refused)2205 (Given - Provider: Stacy Galindo RN) 1019 (Not Given - Provider: Phong Best, PRISCILA IBCLC - Reason: Patient/family refused) QUEtiapine (SEROQUEL) tablet 200 mg (CANCELED) 200 mg, oral, AT BEDTIME, First dose (after last modification) on Sat04/26/14 at 2100, Until Discontinued, Routine 2116 (Given - Provider: Phong Best RN IBCLC) ranitidine (ZANTAC) tablet 300 mg (CANCELED) 300 mg, oral, 2 TIMES DAILY, First dose on Sat04/23/14 at 2300, Until Discontinued, Routine 0915 (Given - Provider: Steph Chavez RN)2205 (Given - Provider: Stacy Galindo RN) 0923 (Given - Provider: Phong Best RN IBCLC)2230 (Not Given - Provider: Phong Best RN IBCLC - Reason: Patient/family refused) 0853 (Given - Provider: Marisol Martinez, RN) sodium chloride 0.9 % flush 3 mL (CANCELED) 3 mL, intravenous, EVERY 8 HOURS, First dose on Sat04/24/14 at 0230, Until Discontinued, Routine 1302 (Given - Provider: Steph Chavez RN)1600 (Due)2343 (Given - Provider: Stacy Galindo RN) 0924 (Given - Provider: Phong Best, PRISCILA IBCLC)1716 (Given - Provider: Phong Best, PRISCILA IBCLC) 0020 (Given - Provider: Melissa Corado RN)0900 (Given - Provider: Marisol Martinez, RN)1600 (Due) PRN Medication Order 04/25/2014 04/26/2014 04/27/2014 acetaminophen (TYLENOL) tablet 650 mg 650 mg, oral, EVERY 4 HOURS PRN, Starting on 04/24/14 at 0214, Until 04/27/14 at 1904, Pain, Routine 1526 (Given - Provider: Steph Chavez RN) 1037 (Given - Provider: Phong Best RN IBCLC)1814 (Given - Provider: Phong Best RN IBCLC) 0714 (Given - Provider: Melissa Corado RN)1304 (Given - Provider: Marisol Martinez, RN) documented in this encounter Orders Medications Ordered That Russel ht Not Have Been Administered Count Last Ordered Date First Ordered Date dextrose 50 % solution 12.5 g 3 04/25/2014 04/24/2014 glucagon (human recombinant) injection 1 mg 3 04/25/2014 04/24/2014 insulin aspart (NOVOLOG FLEX PEN) injection 20 Units 1 04/25/2014 calcium carbonate (TUMS) 200 mg calcium (500 mg) per chewable tablet tablet,chewable 1-2 Tab 1 04/24/2014 docusate sodium (COLACE) capsule 100 mg 1 1 06/25/2013 insulin aspart (NOVOLOG FLEX PEN) injection 12 Units 1 04/24/2014 insulin aspart (NOVOLOG FLEX PEN) injection 15 Units 1 04/24/2014 acetaminophen (TYLENOL) tablet 650 mg 1 carboprost (HEMABATE) intram uscular injection 250 mcg 1 04/23/2014 gabapentin (NEURONTIN) capsule 1,500 mg 1 1 06/24/2013 ibuprofen (MOTRIN) tablet 400 mg 1 04/23/20 14 insulin aspart (NOVOLOG FLEX PEN) injection 8 Units 1 04/23/2014 methylergonovine (METHERGINE ) injection 200 mcg 1 04/23/2014 misoprostol (CYTOTEC) tablet 200 mcg 1 03/30 misoprostol (CYTOTEC) tablet 800 mcg 1 03/30 oxytocin in lactated ringers 30 units/500 ml 2 04/23/2014 Lab Orders Without Results Count Last Ordered D ate First Ordered Date POCT GLUCOSE 4 04/24/2014 Diet Count Last Ordered Date First Orde red Date DISCHARGE DIET 2 04/27/2014 Nursing Count Last Ordered Date First Orde red Date BATHING INSTRUCTIONS 1 04/27/2014 PATIENT AT LOW RISK FOR VTE: RISK OF PHARMACOLOGIC PROPHYLAXIS OUTWEIG 1 04/24/2014 Admission Count Last Ordered Date First Orde red Date STATUS: NON-MEDICARE OB INPA TIENT ADMISSION 1 04/23/2014 Transfer Count Last Ordered Date First Orde red Date NOTIFY PPS OF DISCHARGE COMPLETE 1 04/27/20 14 PPS NOTIFICATION OF PATIENT ARRIVAL ON UNIT 5 04/26/2014 04/24/2014 PPS NOTIFICATION OF SENDING PATIENT OFF THE UNIT 5 04/26/2014 04/24/2014 UR PATIENT STATUS CHANGE 1 04/24/2014 NOTIFY PPS OF ROOM CHANGE COMPLETE 1 2013 Discharge Count Last Ordered Date First Orde red Date DISCHARGE PATIENT 1 04/27/2014 Legal Count Last Ordered Date First Orde red Date MISCELLANEOUS DISCHARGE INSTRUCTIONS 1 03/31 documented in this encounter Care Teams Dockworker Relationship Specialty Start Date End Date Annette Sidhu, VP [employer] [address] [place] [phone] PCP - General 03/19/13 07/06/19 documented as of this encounter
--- OUTSIDE RECORDS SUMMARY | 2024-02-14 15:21 | XMS_ITS | Encounter Summary ---
Author Organization [facility] Address [address] [place] [id number] Care Team Providers Care Feed Mill Lab Technician Name Role Phone Annette Sidhu APRN Primary Care Provider Encounter Details Date Type Department Care Team (Late st Contact Info) Description 04/30/2014 14:50 EST - 04/30/2014 23:59 [facility] Hospital Encounter [facility] [phone] Haim Méndez MD [address] [place] [address], [address] [place] [phone] Discharge Disposition: Home or Self Care Social [...] 04/24/2014 documented as of this encounter Discharge Diagnoses Diagnosis 648.03 DIABETES-ANTEPARTUM[ICD-9-CM] 642.03 ESSEN HYPERTEN-ANTEPART[ICD-9-CM] documented in this encounter Medications at Time [...] 04/09/2014 05/07/2014 documented as of this encounter Discharge Disposition Disposition Code Departure Means Destination Home or Self Longterm documented in this encounter Plan of Treatment Not on file documented as of this encounter Goals Goal Patient Goal Type Associated Problems Recent Progress Patient-Stated? Author HEMOGLOBIN A1C < 7.0 Result Component Type 2 diabetes mellitus ([facility]) 8.7(07/07/2015 5:05 EST) No Annmarie Vigil documented as of this encounter Visit Diagnoses Not on filedocumented in this encounter Care Teams Feed Mill Lab Technician Relationship Specialty Start Date End Date Annette Sidhu APRN [address] [place] [phone] PCP - General 03/19/13 07/06/19 documented as of this encounter
--- OUTSIDE RECORDS SUMMARY | 2024-02-14 15:21 | XMS_ITS | Encounter Summary ---
Author Organization [facility] Address [address] [place] [address] Care Team Providers Care Electrical Tryout Person Name Role Phone Annette Sidhu APRN Primary Care Provider [phone] Encounter Details Date Type Department Care Team (Late st Contact Info) Description 05/07/2014 15:50 EST - 05/07/2014 23:59 [facility] Hospital Encounter [facility] [phone] Charity Onofre MD [address] [facility], [address] [place] [phone] Discharge Disposition: Home or Self Care Social [...] this encounter Discharge Diagnoses Diagnosis 648.03 DIABETES-ANTEPARTUM[ICD-9-CM] documented in this encounter Medications at Time [...] Code Departure Means Destination Home or Self [facility] documented in this encounter Plan of Treatment Not on file documented as of this encounter Goals Goal Patient Goal Type Associated Problems Recent Progress Patient-Stated? Author HEMOGLOBIN A1C < 7.0 Result Component Type 2 diabetes mellitus ([facility]) 8.7(07/07/2015 5:05 EST) Annmarie Lopez documented as of this encounter Visit Diagnoses Not on filedocumented in this encounter Care Teams Electrical Tryout Person Relationship Specialty Start Date End Date Annette Sidhu, [employer] [address] [place] [phone] PCP - General 03/19/13 07/06/19 documented as of this encounter
--- OUTSIDE RECORDS SUMMARY | 2024-02-14 15:21 | XMS_ITS | Encounter Summary ---
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 Call for an appointment. * (Routine) - Closed Specialty Diagnoses / Procedures Referred By Savannah ashton Referred To Contact Maria Eugenia Dan MD [address] [place] [address] Referral ID Status Reason Start Date Expiration Date V isits Requested Visits Authorized [id number] Closed Specialty Services Required 05/08/2014 1 1 Question Answer Reason for recommendation: discharge follow up Reason for Visit * Reason Comments Non-stress Test Encounter Details Date Type Department Care Team (Late st Contact Info) Description 05/07/2014 11:04 EST - 05/08/2014 9:15 EST Hospital Encounter [facility] [address], [place] [id number] Haim Méndez MD [address] [facility], [address] [place] [id number] Kristi Leblanc MD [address] [facility] [place] [address] Abnormal maternal glucose tolerance, antepartum (Primary Dx); Type 2 diabetes mellitus (CMS-HCC) (HCC-CMS); Chronic hypertension with exacerbation during in third trimester; Supervision of high-risk of elderly multigravida Discharge Disposition: Home or Self Care Social [...] Sign Reading Time Taken Comments Blood Pressure 145/80 05/08/2014 0906 EST Pulse - - Temperature 35.3 ??C (95.5 ??F) 05/08/2014 0435 EST Respiratory Rate 22 05/08/2014 0435 EST Oxygen Saturation 96% 05/08/2014 0330 EST Inhaled Oxygen Concentration - - Weight - [...] as of this encounter Discharge Diagnoses Diagnosis 659.63 OTHER ADVANCED MATERN AGE-ANTEPART[ICD-9-CM] 642.03 ESSEN HYPERTEN-ANTEPART[ICD-9-CM] 648.03 DIABETES-ANTEPARTUM[ICD-9-CM] 250.00 DIABETES UNCOMPL ADULT-TYPE II[ICD-9-CM] 654.23 PREV DELIVERY NOS-ANTEPART[ICD-9-CM] 649.03 TOBACCO USE DISORDER COMPL. 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?F) - - 05/08/14 0410 - - - 36 ??C (96.8 ??F) - - 05/08/14 0330 95/41 mmHg 77 BPM 20 - 96 % Room air 05/08/14 0118 102/51 mmHg 89 BPM - - - - 05/08/14 0116 97/48 mmHg 83 BPM 18 36.2 ??C (97.2 ??F) - - 05/07/14 2200 - 83 BPM - - - - 05/07/14 2100 130/67 mmHg 85 BPM 17 35.7 ??C (96.3 ??F) - - Hospital Course: Guzman Jean is a 38 y.o. who was admitted to the Maternal Medicine service on 05/07/2014 @ 35w4d for extended monitoring due to a change in baseline during an NST. Patient had been seen in the office on 05/07/2014 for a routine antepartum visit and her scheduled antepartum testing. She had an 8/8 BPP, however on her NST, her baseline was found to be 160bpm,which had been a change from her usual baseline. She was sent up to L&D for extended monitoring. On L&D, the FHT was found to be in the 160s, with two spontaneous decels. However, CEFM overnight demonstrated a Cat I tracing, with no further decels. Additionally, patient was found to be hyperglycemic, and had not taken her AM insulin, and was given her appropriate insulin dosing, and was subsequently normoglycemic. Overnight, the patient had one possible hypoglycemic episode, with a FSG value of 20, which may have been a glucose reader malfunction, as her serum glucose that returned at87. She was treated with PO juice and an ampule of D50. On 05/08/2014, after reassuring extended monitoring and acceptable glucose values, patient was discharged home, with instructions to follow-up in clinic this week. Relevant Studies at Discharge: none Last Lab Results at Discharge: None Discharge Summary Completed: Yes Maria Eugenia Dan MD 05/08/2014 11:20 documented in this encounter Medications at Time [...] hours as needed for Pain. 05/16/2014 10/21/2020 acetaminophen (TYLENOL) 325 mg tablet Take 2 Tabs by mouth every 4 hours as needed for Pain. 04/27/2014 05/16/2014 cyclobenzaprine (FLEXERIL) 10 mg tablet Take 10 mg by mouth 2 times daily. 06/28/2017 dexmethylphenidate (FOCALIN) 10 mg tablet Take 10 mg by mouth 3 times daily. 10/21/2020 glimepiride (AMARYL) 4 mg tablet Take 1 Tab by mouth daily. 30 Tab 1 05/16/2014 05/16/2014 glucagon (GLUCAGON EMERGENCY KIT, HUMAN,) 1 mg emergency injection kit Inject 1 mg into the muscle once as needed for up to 1 dose for Low Blood Sugar. 1 Kit 2 05/08/2014 10/21/2020 glyBURIDE (DIABETA) 5 mg tablet Take 1 Tab by mouth daily. 30 Tab 1 05/16/2014 11/14/2015 HYDROmorphone (DILAUDID) 2 mg tablet Take 1-3 Tabs by mouth every 4 hours as needed for Pain. 30 Tab 0 05/16/2014 06/01/2014 insulin aspart (NOVOLOG FLEXPEN) 100 unit/mL injectable [...] 04/30/2016 04/30/2016 documented as of this encounter Ordered Prescriptions Prescription Sig Dispensed Refills Start Date End Da te glucagon (GLUCAGON EMERGENCY KIT, HUMAN,) 1 mg emergency injection kit Inject 1 mg into the muscle once as needed for up to 1 dose for Low Blood Sugar. 1 Kit 2 05/08/2014 10/21/2020 documented in this encounter Discharge Disposition Disposition Code Departure Means Destination Home or Self Care documented in this encounter Progress Notes * Caterina Harrell RN - 05/08/2014 0806 EST 0720 Care assumed, Pt on left side, awoken on entry into room, Pt denies complaints, FS 106, BP retaken w/ adult size cuff(blue) verses large cuff w/ BP 100/40. All reported to Maria Eugenia Dan And Leidy Singh. Pt states slept well and feels a lot better. Doppler adjusted, + movement w/ accels. 0745 Leidy Singh in to talk to pt re: plans for discharge and follow up care. To dc EFM's, and hourly FS. Pt will eat breakfast and have insulin prior to discharge. All questions answered.pt ordered breakfast. Sitting up , watching TV. 0800 EFM off , Awaiting on Breakfast. 0840 Am insulin given, Breakfast here. . 0900 Written discharge instructions given. Reviewed. All questions answered. RX for glucagon emergency pen given. SL dc'd. 914 Discharged home undelivered. * Svitlana Singh MD - 05/08/2014 0627 EST L&D Progress Note CC: Extended monitoring Rh neg/GBS neg S: patient sleeping, did not wake. O: BP 124/58 Temp(Src) 35.3 ??C (95.5 ??F) (Tympanic) Resp 22 SpO2 96% LMP 08/31/2013 EFM: BL 150 bpm, mod variability, no accels, one spontaneous mild decel from 150 to 120 with spontaneous recovery to 150, Cat II FHT TOCO: Irritability, no regular ctx Exam: Gen: sleeping A/P: 38 y.o. at 35w4d for extended monitoring. Cat II FHT T2DM -Currently euglycemic, BG 173. Had hypoglycemic episode overnight. Will continue to check hourly glucoses until 0700 to ensure they are stable and then can return to checking 4x daily. -Continue home regimen of glargine 30 units QHS and aspart 15 units qAC -Goal BG 80-120 CHTN -Normal to mild range pressures since admission -Continue labetalol 200mg BID Depression -Continue home antidepressants FWB -CEFM -If reassuring without further decelerations, can then consider discharge home later today with close follow-up. Global -Carb consistent diet -Rh pos -GBS neg -C/S and BTL consents signed on previous admission Discussed with Dr. Loc Brooks MD 05/08/2014 6:27 Attestation statement: I saw and examined the patient with the resident/fellow. I agree with the findings and plan of care documented in the resident's/fellow's note. Patient here for extended monitoring for FHT in 160s yesterday, FHT reactive and reassuring overnight. Had a low fingerstick overnight (20 per monitor), however, Lab glucose from the same time 80s. Monitor has since had problems andhas been pulled from rotation to address. Plan for D/C home. Pt to monitor glucose tightly this week, including an overnight reading to see if there are any middle of the night lows at home. Has office appointment this week with testing. Svitlana Singh MD * Carolin Cardenas RN - 05/08/2014 0607 EST 0605. Report rcvd from Ethel Lewis RN and pt assumed for care. 0720. Report given to Nuha Harrell RN and care transferred. * Oriana Brooks MD - 05/08/2014 0453 EST L&D Progress Note CC: Extended monitoring Rh neg/GBS neg CTSP for patient not feeling right. By the time I went to evaluate patient, patient was feeling much better. Per nurse, she went to reposition patient and patient stated she was feeling very weak and couldn't think clearly. FSBG at that time was <20. Patient was given juice and 12.5mg D50%. Repeat FSBG was 175 and then 181 in opposite hand. Patient reported some improvement in weakness and was able to fall back asleep. A repeat FSBG 30 min later was 87. Upon entering the room, patient sitting upright in bed, eating peanut butter and crackers. Patient reports feeling much better now. She said she was feeling very weak and having chills and feeling sweaty, but that feeling has now gone away. Denies n/v. Baby very active. Denies cramping. O: BP 124/58 Temp(Src) 35.3 ??C (95.5 ??F) (Tympanic) Resp 22 SpO2 96% LMP 08/31/2013 EFM: BL 140 bpm, mod variability, no accels, no decels, Cat I FHT TOCO: Irritability, no regular ctx Exam: Gen: NAD Pulm: CTAB Cardio: RRR Abd: Soft, no uterine tenderness A/P: 38 y.o. at 35w4d for extended monitoring. Cat I FHT T2DM -Currently euglycemic, BG 155. Suspect recent symptoms secondary to hypoglycemic episode, currentlyimproved. Will check hourly glucoses for the next 2-3 hours to ensure they are stable. -Continue home regimen of glargine 30 units QHS and aspart 15 units qAC -Goal BG 80-120 CHTN -Normal to mild range pressures since admission -Continue labetalol 200mg BID Depression -Continue home antidepressants FWB -CEFM -If reassuring without further decelerations, can then consider discharge home tomorrow with close follow-up. Global -Carb consistent diet -Rh pos -GBS neg -C/S and BTL consents signed on previous admission Oriana Brooks MD 05/08/2014 4:53 * Dahiana Fisher MD - 05/08/2014 0355 EST R1 Progress Note: Called to room for FS glucose of 20 S: Feels shakey, light headed, diaphoretic and weak. Reports that she typically feels this way whenher blood sugars are low. Denies fever, chills, SOB, chest pain and abdominal pain. O:BP 95/41 Temp(Src) 36.2 ??C (97.2 ??F) (Tympanic) Resp 20 SpO2 96% LMP 08/31/2013 Gen: Diaphoretic and pale, moderate distress CV: RRR Resp: CTAB Abd: Graivid, no fundal tenderness. FHT: 140, moderate variability, no decels, no accels, [place]: quiescent FS 20 A/P: Guzman Jean is a 38 yo at 35w5d with CHTN and T2DM who is undergoing extended monitoring for FHT elevated baseline and intermittent decels, who is hypoglycemic and symptomatic. Cat 1 FHT. -Give orange juice -1/2 amp D50 -check serum glucose. Discussed with Dr. Todd Fisher M.D. PGY1 Pager [phone] * Oriana Brooks MD - 05/08/2014 0205 EST R2 OB Strip Review FHT: 140 baseline, moderate variability, no accels, no decels, Cat I tracing [place]: Flat Oriana Brooks MD 05/08/2014 2:05 * Mally Lweis RN - 05/08/2014 0110 EST 0105: Received report from Marian Sue RN. 0124: Patient reports 3 out of 10 headache. Reports she had this headache when going to bed last night. Denies blurry vision or epigastric pain. Provided Tylenol. Patient up to the bathroom to void. Patient back to bed and onto to left side and quickly returned to sleep. 0213: Dr. Brooks notified of patients headache and Tylenol administration. 0330: Pt found laying in bed on her back in bed. When attempting to reposition monitor and encourage patient to turn on her side patient reported feeling weak and generally unwell. BP 95/41. HR77. RR 20. O2 saturation 96-97% on room air. FSBG <20. Patient lightheaded and weak. 0342: Assisted patient to sit up in bed. Serum glucose drawn. Patient drank 360ml orange juice. 12.5mg D50% via PIV. 0343: Dr. Garcia to bedside. 0347: Repeat FSBG 175 from right hand (same arm with PIV that d50% was given though.) Decision madeto take FSBG on opposing hand. 0349: FSBG 181 in left hand. Patient continues to feel weak. 0353: Patient reports slight improvement in feelings of weakness but quickly falls back asleep. Continuous pulse ox placed. O2 saturation 98% on room air. 0409: Patient continues to be very sleepy and weak. Dr. Garcia notified and back to bedside. 0413: Serum glucose results returned at 87. Dr. Garcia aware. Patient reports feeling slightly better. 0420: Dr. Brooks paged and asked to come to bedside to assess patient. 0423: FSBG 155. Patient continues to feel weak and falls asleep quickly after being aroused. Drowsybut arousable. 0430: Patient requesting to get up to the bathroom. Patient sat on the edge of the bed for a few minutes with nursing assistance. Slightly dizzy but recovered after sitting up for a few minutes. Assisted patient to the bathroom. Patient voided and returned to bed to eat crackers and peanut butter. Now awake and alert and oriented. Reports that she feels much better. 0443: Dr. Brooks updated. Plan to check FSBG q1 hour for the next 3 hours and then reassess plan. 0553: Dr. Brooks aware of 171 FSBG. 0605: Report given to Carolin Cardenas RN. * Oriana Brooks MD - 05/07/2014 2310 EST R2 OB Strip Review FHT: 145 baseline, moderate variability, no accels, no decels, Cat I tracing [place]: Flat Oriana Brooks MD 05/07/2014 23:12 * Marian Neal RN - 05/07/2014 192 EST 1919: Assumed care of pt from Milka Paniagua RN. Pt resting on right side with FOB at bedside; EFM adjusted. LR infusing at 150 ml/hr. Pt denies ctx, pain. Encouraged to rest. Plan for FSBS at 2100 and bedtime medications at that time. 1929: IV to SL. 2044: RN to bedside; FSBS of 128 obtained. 30 units of Lantus given SC, HS medications given. VS obtained, pt up to BR, void. Back to bed on left side. EFM adjusted. Pt encouraged to rest. * Oriana Brooks MD - 05/07/2014 1850 EST L&D Progress Note CC: Extended monitoring Rh neg/GBS neg S: Patient sitting up and eating dinner. Reports feeling well. Feeling baby move and denies any ctxor cramping. O: BP 136/56 Temp(Src) 35.5 ??C (95.9 ??F) (Tympanic) Resp 16 LMP 08/31/2013 EFM: BL 145 bpm, mod variability, pos accels, occ small variable decels, Cat II FHT TOCO: Irritability, periods of ctx q3-4 min Exam: Gen: NAD Abd: Soft, no uterine tenderness A/P: 38 y.o. at 35w4d for extended monitoring. Cat II FHT T2DM -Currently euglycemic, BG 77. -Continue home regimen of glargine 30 units QHS and aspart 15 units qAC -Goal BG 80-120 CHTN -Normal to mild range pressures since admission -Continue labetalol 200mg BID Depression -Continue home antidepressants FWB -CEFM overnight -If reassuring without further decelerations with 8/8 BPP today, can then consider discharge home tomorrow with close follow-up. Global -Carb consistent diet -Rh pos -GBS neg -C/S and BTL consents signed on previous admission Oriana Brooks MD 05/07/2014 18:50 * Lilibeth Haines MD - 05/07/2014 1647 EST L&D Progress Note CC: Extended monitoring Rh neg/GBS neg S: Pt sleeping. O: BP 135/63 Temp(Src) 35.9 ??C (96.6 ??F) (Tympanic) Resp 16 LMP 08/31/2013 EFM: BL 150 bpm, mod variability, pos accels, no decels, Cat I FHT TOCO: flat Exam deferred. Pt sleeping. A/P: 38 y.o. at 35w4d for extended monitoring. Cat I FHT T2DM -Currently euglycemic, BG 75. -Continue home regimen of glargine 30 units QHS and aspart 15 units qAC -Goal BG 80-120 CHTN -Normal to mild range pressures since admission -Continue labetalol 200mg BID Depression -Continue home antidepressants FWB -CEFM overnight -With IVFs baby's baseline has decreased to 150-155, and there have been no further decelerations since 13:40. -If reassuring without further decelerations with 8/8 BPP today, can then consider discharge home with close follow-up. Global -Carb consistent diet -Rh pos -GBS neg -C/S and BTL consents signed on previous admission Lilibeth Haines MD 05/07/2014 16:48 * Kristi Leblanc MD - 05/07/2014 1143 EST L&D Triage Note C/C: Extended monitoring HPI: Guzman Jean is a 38 y.o. @ 35w4d by a 6wk U/S with CHTN and poorly controlled T2DM who presents for extended monitoring due to elevated baseline of 160 on NST today. She feeling tired after working overnight, otherwise reports feeling well. Denies f/c, ctx, LOF, VB. +FM. For her T2DM, she is currently on lantus 30 units QHS and aspart 15 units qAC. She took her lantus yesterday evening but did not cover herself with aspart this morning after breakfast. O: BP 129/68 Temp(Src) 35.9 ??C (96.6 ??F) (Tympanic) Resp 16 LMP 08/31/2013 FHT: 16 baseline, mod variability, pos accels --> spontaneous decel to the 120s with a variable within for a total of 4 min followed by rebound tachycardia of 165-170 and minimal variability [place]: flat POC 185 A/P: Guzman Jean is a 38 y.o. @ 35w4d with CHTN and T2DM presenting with for extended monitoring. Category II tracing currently. AVSS. CHTN -Currently normotensive -Continue labetalol 200mg BID T2DM -Hyperglycemia today. Pt last took insulin yesterday evening and did not cover for breakfast. -Aspart 15 units now FWB -CEFM -Due to decel and tachycardia, will place IV and give 500cc LR bolus followed by LR @ 150cc/hr. No other si/sx of infection. Global -NPO -Rh neg: rhogam at delivery -Delivery planning: repeat and BTL Discussed with Dr. Benji Haines MD 05/07/2014 11:44 MFM ATTG Pt well known to the MFM service -- sent up from ultrasound due to change in FHT -- had been 140s with moderate variability, reactivity. Today 160 bpm, moderate variability with accels BUT intermittent late decelerations (1154 x 3min,1251, 1341). Her BPP today was 8/8. At this time there is no overt etiology for tachycardia, i.e., no e/o infection). In view of change in FHT, will continue to observe on L and D with continuous EFM. Kristi Leblanc MD * Anne MarieBess linares Tyron - 05/07/2014 1109 EST Pt arrived to unit from office for monitoring. Pt states blood pressure was high in office. Pt denies need to void. Placed in bed on monitor. Pt denies bleeding or leaking fluid. Pt states worked last night and had not slept. Had breakfast this am and did not cover herself. notified of arrival on floor 1157- FHR with variable decel noted. With return to 165 after. Total decel 4.5 min. Pt in left tiltposition, repositioned to right side. notified. decel self resolved prior to entering room. 1210- pt OOB to bathroom. Monitors placed back on. UA collected. 1230- IV placed and labs drawn at that time. LR bolus started. 1350-pt continues to have occasional decels, last one possibly with a contraction. Pt denies feeling any. notified. 1517- US adjusted, pt sleeping on right side. No acute distress noted. 1545- finger stick 75, notified. No new orders 1645- pt appears to be sleeping soundly. Assessment deferred. No acute distress noted 1715- pt woken, OOB to bathroom with no difficulty. Pt denies feeling any contractions. No acute distress noted. 191- report given to Marian FRANCOIS documented in this encounter H&P Notes * Kristi Leblanc MD - 05/07/2014 1353 EST Department of Obstetrics History & Physical Admit Date: 05/07/2014 Chief Complaint: Baseline 160 on NST HPI: Guzman Jean is a 38 y.o. @ 35w4d by 6wk US with CHTN and T2DM who presents fromthe office for extending monitoring due to a baseline of 160 on her NST today, but with a 8/8 BPP. Since arrival the patient has been sleeping but with a FHT of intermittent decelerations. Current Obstetrical History CHTN -Started on labetalol 200mg BID in March -04/24 24hr urine protein: 550mg T2DM -Poorly controlled -Currently on lantus 30 units QHS and aspart 15 units qAC -05/07/14 growth: EFW 3191g (89%ile) BITA 06/07/14 by 6wk U/S c/w LMP Blood Type A neg Antibody Screen neg GBS neg Rubella imm Varicella prot Hep B neg Hep C HIV neg RPR NR Gonorrhea neg Chlamydia neg Pap Neg w/neg HPV 1 hour GTT Aneuploidy Testing NIPT low risk CF Testing Ultrasound Date GA EFW ZHENG Anatomy Dopplers 20+0 Marginal cord insert, multiple placenta lakes in fundal placenta 05/07/14 35+4 EFW 3191g (89%ile) 19.7 Ceph, ant placenta, 8/8 BPP Past Obstetrical History G1 - 1994 - 1st tri [...] section 1998,2007 times 2 ??? 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 Smoking status: Current Every Day Smoker -- 0.50 packs/day for 2 years Types: Cigarettes ??? Smokeless tobacco: Never Used ??? Alcohol Use: No Medications Allergies No current facility-administered medications on file prior to encounter. Current Outpatient Prescriptions on File Prior to Encounter Medication Sig Dispense Refill ??? acetaminophen (TYLENOL) 325 mg tablet Take 2 [...] times daily with meals. 1 Box 1 ??? insulin glargine (LANTUS SOLOSTAR) 100 unit/mL (3 mL) injection pen Inject 20 Units into the skin once daily. 1 Box 1 ??? insulin pen needles 31G x 5/16 BD UltraFine Short. Will be using 4 pen needles per day at thispoint.. 100 Each 3 ??? labetalol (NORMODYNE) 200 mg tablet Take 1 Tab by mouth every 12 hours. 60 Tab 2 ??? multivitamin vit-iron fumarate-FA (STUARTNATAL) 27 mg iron- 1 mg tablet tablet Take 1 Tab by mouth daily. 90 Tab 2 ??? QUEtiapine (SEROQUEL) 200 mg tablet Take 200 mg by mouth 2 times daily. ??? ranitidine (ZANTAC) 150 mg tablet Take 300 mg by mouth 2 times daily. No Known Allergies Objective: Patient Vitals for the past 8 hrs: BP Heart Rate Resp Temp 05/07/14 1442 135/63 mmHg 74 BPM - - 05/07/14 1349 128/57 mmHg 87 BPM - - 05/07/14 1300 146/60 mmHg 76 BPM 16 - 05/07/14 1115 129/68 mmHg 75 BPM 16 35.9 ??C (96.6 ??F) General: NAD Abdomen: obese, gravid, NT Extremities: WWP, no calf tenderness, 1+ edema FHT: 150 baseline, mod variability, pos accels, no decels; Cat I tracing. TOCO: flat Assessment/Problems/Plan: Guzman Jean is a 38 y.o. @ 35w4d by 6wk US c/w LMP presenting for extended monitoring due elevated FHT baseline and intermittent decelerations. AVSS. T2DM -Currently euglycemic, BG 75. -Continue home regimen of glargine 30 units QHS and aspart 15 units qAC -Goal BG 80-120 CHTN -Normal to mild range pressures since admission -Continue labetalol 200mg BID Depression -Continue home antidepressants FWB -CEFM overnight -With IVFs baby's baseline has decreased to 150-155, and there have been no further decelerations since 13:40. -If reassuring without further decelerations with 8/8 BPP today, can then consider discharge home with close follow-up. Global -Carb consistent diet -Rh pos -GBS neg -C/S and BTL consents signed on previous admission Discussed with Dr. Leblanc. Lilibeth Haines MD 05/07/2014 15:32 MFM ATTG I have seen and evaluated patient and agree with admission as stated above. Kristi Leblanc MD documented in this encounter Procedure Notes * Khalida Quiñones MD - 04/28/2014 1149 EST NST Report 04/17 Baseline Heart Rate: 150 Accelerations: present Movement: present Decelerations: absent Contractions: absent Interpretation: reactive Khalida Quiñones MD 04/28/2014 11:50 * Khalida Quiñones MD - 04/28/2014 1149 EST NST Report 04/26 Baseline Heart Rate: 140 Accelerations: present Movement: present Decelerations: absent Contractions: absent Interpretation: reactive Khalida Quiñones MD 04/28/2014 11:49 documented in this encounter Miscellaneous Notes * Plan of Care - Mally Lewis RN - 05/08/2014 0239 EST Problem: UTERUS/PLACENTA PERFUSION Goal: FHR Pattern Data: Patient is a at 35w5d here for extended monitoring Action: Continuous EFM maintained. Patient sleeping comfortably in bed. Response: Category 1 strip. Moderate variability with no decels noted. Will continue to monitor andintervene as needed. Mally Lewis RN 05/08/2014 2:37 documented in this encounter Plan of Treatment Scheduled Referrals Name Type Priority Associated Diagnoses Order Schedule PROVIDER FOLLOW-UP INSTRUCTIONS Outpatient Referral Routine Ordered: 05/08/2014 PROVIDER FOLLOW-UP INSTRUCTIONS Outpatient Referral Routine Ordered: 05/08/2014 documented as of this encounter Goals Goal Patient Goal Type Associated Problems Recent Progress Patient-Stated? Author HEMOGLOBIN A1C < 7.0 Result Component Type 2 diabetes mellitus ([facility]) 8.7(07/07/2015 5:05 EST) No Annmarie Vigil documented as of this encounter Procedures Procedure Name Priority Date/Time Associated Diagnosis Comments GLUCOSE, GLUCOMETER Routine 05/08/2014 7 :31 EST GLUCOSE, GLUCOMETER Routine 05/08/2014 6 :24 EST GLUCOSE, GLUCOMETER Routine 05/08/2014 5 :30 EST GLUCOSE, GLUCOMETER Routine 05/08/2014 4 :24 EST GLUCOSE, GLUCOMETER Routine 05/08/2014 3 :49 EST GLUCOSE, GLUCOMETER Routine 05/08/2014 3 :47 EST GLUCOSE, SERUM STAT 05/08/2014 3:40 EST GLUCOSE, GLUCOMETER Routine 05/08/2014 3 :36 EST GLUCOSE, GLUCOMETER Routine 05/07/2014 2 0:44 EST GLUCOSE, GLUCOMETER Routine 05/07/2014 1 7:52 EST GLUCOSE, GLUCOMETER Routine 05/07/2014 1 5:42 EST GLUCOSE, GLUCOMETER Routine 05/07/2014 1 3:46 EST URINE MICROSCOPIC Routine 05/07/2014 12: 39 EST URINALYSIS WITH MICROSCOPIC IF POSITIVE Routine 05/07/2014 12:39 EST URINE CULTURE IF POSITIVE Routine 05/07/2014 12:39 EST BLOOD BANK HOLD STAT 05/07/2014 12:39 EST BACTERIAL CULTURE, URINE Routine 05/07/2014 12:39 EST HOLD SST Routine 05/07/2014 12:35 EST HOLD LAVENDER TOP Routine 05/07/2014 12: 35 EST HOLD BLUE TOP Routine 05/07/2014 12:35 EST GLUCOSE, GLUCOMETER Routine 05/07/2014 1 1:30 EST documented in this encounter Results * (ABNORMAL) GLUCOSE, GLUCOMETER (05/08/2014 7:31 EST) Glucose, Fingerstick 106(H) 70 - 100 mg/dl 05/08/2014 7:[address] [facility] Bi[employer]ing Manufacturing Technician ID [id number] 05/08/2014 7:[address] [facility] Comment:Test Performed by rsing Services BLOOD SPECIMEN / Unknown 05/08/2014 7:31 EST 05/08/2014 7:33 EST Kristi Leblanc MD CHEMISTRY & BLOOD GA S ORDERABLES [facility] [address] [place] [address] * (ABNORMAL) GLUCOSE, GLUCOMETER (05/08/2014 6:24 EST) Glucose, Fingerstick 173(H) 70 - 100 mg/dl 05/08/2014 6:[address] [facility] [employer] Manufacturing Technician ID [id number] 05/08/2014 6:[address] [facility] Comment:Test Performed by [facility] [place] [facility] BLOOD SPECIMEN / Unknown 05/08/2014 6:24 EST 05/08/2014 6:25 EST Kristi Leblanc MD CHEMISTRY & BLOOD GA S ORDERABLES Performing Organization Address [facility] Co de Phone Number [facility] [address] [place] [address] * (ABNORMAL) GLUCOSE, GLUCOMETER (05/08/2014 5:30 EST) Glucose, Fingerstick 171(H) 70 - 100 mg/dl 05/08/2014 5:[address] [facility] [employer] Manufacturing Technician ID [id number] 05/08/2014 5:[address] [facility] Comment:Test Performed by [facility] [place] [facility] BLOOD SPECIMEN / Unknown 05/08/2014 5:30 EST 05/08/2014 5:32 EST Kristi Leblanc MD CHEMISTRY & BLOOD GA S ORDERABLES Performing Organization Address City/[facility]/ZIP Co de Phone Number [facility] [address] [place] [address] * (ABNORMAL) GLUCOSE, GLUCOMETER (05/08/2014 4:24 EST) Glucose, Fingerstick 155(H) 70 - 100 mg/dl 05/08/2014 4:[address] [facility] [employer] Manufacturing Technician ID [id number] 05/08/2014 4:[address] [facility] Comment:Test Performed by Nu rsing Services BLOOD SPECIMEN / Unknown 05/08/2014 4:24 EST 05/08/2014 4:29 EST Kristi Leblanc MD CHEMISTRY & BLOOD GA S ORDERABLES Performing Organization Address City/[facility]/ZIP Co de Phone Number [facility] [address] [place] [address] * (ABNORMAL) GLUCOSE, GLUCOMETER (05/08/2014 3:49 EST) Glucose, Fingerstick 181(H) 70 - 100 mg/dl 05/08/2014 3:[address] [facility] [employer] Manufacturing Technician ID [id number] 05/08/2014 3:[address] [facility] Comment:Test Performed by Nu rsing Services BLOOD SPECIMEN / Unknown 05/08/2014 3:49 EST 05/08/2014 3:51 EST Kristi Leblanc MD CHEMISTRY & BLOOD GA S ORDERABLES Performing Organization Address City/[facility] Co de Phone Number [facility] [address] [place] [address] * (ABNORMAL) GLUCOSE, GLUCOMETER (05/08/2014 3:47 EST) Glucose, Fingerstick 175(H) 70 - 100 mg/dl 05/08/2014 3:[address] [facility] [employer] Manufacturing Technician ID [id number] 05/08/2014 3:[address] [facility] Comment:Test Performed by Nu rsing Services BLOOD SPECIMEN / Unknown 05/08/2014 3:47 EST 05/08/2014 3:51 EST Kristi Leblanc MD CHEMISTRY & BLOOD GA S ORDERABLES [facility] [address] [place] [address] * GLUCOSE, SERUM (05/08/2014 3:40 EST) Glucose, Serum 87 70 - 100 mg/dl 05/08/2014 4:[address] [facility] Comment: Slight hemolysis Results may be affected due to hemolysis. Blood specimen (specimen) BLOOD SPECIMEN / Unknown 05/08/2014 3:40 EST 05/08/2014 3:54 EST Dahiana Fisher MD CHEMISTRY & BLOOD G ORDERABLES Performing Organization Address [facility] Co de Phone Number [facility] [address] [place] [address] * (ABNORMAL) GLUCOSE, GLUCOMETER (05/08/2014 3:36 EST) Glucose, Fingerstick <20(LL) 70 - 100 mg/dl 05/08/2014 3:[address] [facility] [employer] Technician ID [id number] 05/08/2014 3:[address] [facility] Comment:Test Performed by Nu rsing Services BLOOD SPECIMEN / Unknown 05/08/2014 3:36 EST 05/08/2014 3:38 EST Kristi Leblanc MD CHEMISTRY & BLOOD GA S ORDERABLES Performing Organization Address [facility] Co de Phone Number [facility] [address] [place] [address] * (ABNORMAL) GLUCOSE, GLUCOMETER (05/07/2014 20:44 EST) Glucose, Fingerstick 128(H) 70 - 100 mg/dl 05/07/2014 20:[address] [facility] [employer] Manufacturing Technician ID [id number] 05/07/2014 20:[address] [facility] Comment:Test Performed by Nu rsing Services BLOOD SPECIMEN / Unknown 05/07/2014 20:44 EST 05/07/2014 20:48 EST Kristi Leblanc MD CHEMISTRY & BLOOD GA S ORDERABLES [facility] [address] [place] [address] * GLUCOSE, GLUCOMETER (05/07/2014 17:52 EST) Glucose, Fingerstick 77 70 - 100 mg/dl 05/07/2014 17:[address] [facility] [employer] Manufacturing Technician ID [id number] 05/07/2014 17:[address] [facility] Comment:Test Performed by Nu rsing Services BLOOD SPECIMEN / Unknown 05/07/2014 17:52 EST 05/07/2014 17:55 EST Kristi Leblanc MD CHEMISTRY & BLOOD GA S ORDERABLES Performing Organization Address City/[facility]/ZIP Co de Phone Number [facility] [address] [place] [address] * GLUCOSE, GLUCOMETER (05/07/2014 15:42 EST) Glucose, Fingerstick 75 70 - 100 mg/dl 05/07/2014 15:[address] [facility] [employer] Manufacturing Technician ID [id number] 05/07/2014 15:[address] [facility] Comment:Test Performed by Nu rsing Services BLOOD SPECIMEN / Unknown 05/07/2014 15:42 EST 05/07/2014 15:45 EST Kristi Leblanc MD CHEMISTRY & BLOOD GA S ORDERABLES Performing Organization Address City/[facility]/ZIP Co de Phone Number [facility] [address] [place] [address] * (ABNORMAL) GLUCOSE, GLUCOMETER (05/07/2014 13:46 EST) Glucose, Fingerstick 134(H) 70 - 100 mg/dl 05/07/2014 13:[address] [facility] [employer] Manufacturing Technician ID [id number] 05/07/2014 13:[address] [facility] Comment:Test Performed by Nu rsing Services BLOOD SPECIMEN / Unknown 05/07/2014 13:46 EST 05/07/2014 13:50 EST Kristi Leblanc MD CHEMISTRY & BLOOD GA S ORDERABLES Performing Organization Address City/[facility]/ZIP Co de Phone Number [facility] [address] [place] [address] * BACTERIAL CULTURE, URINE (05/07/2014 12:39 EST) Result Less than 10,000 CFU/ml Usual urogenital joe. 05/08/2014 9:58 [facility] URINE / Unknown 05/07/2014 1 2:39 EST 05/07/2014 13:52 EST Kristi Leblanc MD MICROBIOLOGY - GENER AL ORDERABLES Performing Organization Address [facility] Co de Phone Number [facility] [address] [place] [address] * (ABNORMAL) URINE MICROSCOPIC (05/07/2014 12:39 EST) WBC, UA 1 to 5 0 - 5 /HPF 05/07/2014 13:05 [facility] RBC, UA 1 to 5 0 - 5 /HPF 05/07/2014 13:05 [facility] Squam Epithel, UA Frequent(A) None seen /HPF 05/07/2014 13:05 [facility] Renal Epithel, UA None seen None seen /HPF 05/07/2014 13:05 [facility] Bacteria, UA None seen None seen /HPF 05/07/2014 13:05 [facility] Crystals, UA None seen /HPF 05/07/2014 13:05 [facility] Hyaline Casts, UA None seen /LPF 05/07/2014 13:05 [facility] UA Comment Microscopic results 05/07/2014 13:05 [facility] Comment: are unreliable on urines unrefrig >2hrs or refrig >8hrs. Mucus, UA Present 05/07/2014 13:05 [facility] Additional Findings Few yeast seen 05/07/2014 13:05 [facility] URINE / Unknown 05/07/2014 1 2:39 EST 05/07/2014 12:44 EST Lilibeth Haines MD URINALYSIS ORDERABLE S Performing Organization Address City/[facility]/ZIP Co de Phone Number [facility] [address] [place] [address] * URINE CULTURE IF UA POSITIVE - NON POCT URINALYSIS ONLY (05/07/2014 12:39 EST) Culture if Indicated Culture indicated by urinalysis results. 05/07/2014 13:[address] [facility] Urine specimen (specimen) TOPOGRAPHY UNKNOWN / Unknown 05/07/2014 12:39 EST 05/07/2014 12:44 EST Lilibeth Haines MD MICROBIOLOGY - GENER AL ORDERABLES Performing Organization Address [facility] Co de Phone Number [facility] [address] [place] [address] * (ABNORMAL) URINALYSIS (05/07/2014 12:39 EST) Color, UA Yellow 05/07/2014 13:05 [facility] Clarity, UA Hazy 05/07/2014 13:05 [facility] Glucose, UA 2+(A) Neg 05/07/2014 13:05 [facility] Bilirubin, UA Neg Neg 05/07/2014 13:05 [facility] Ketones, UA Neg Neg 05/07/2014 13:05 [facility] Specific [place], Urine 1.020 1.001 - 1.035 05/07/2014 13:05 [facility] Blood, UA Neg Neg 05/07/2014 13:05 [facility] pH, UA 6.0 4.6 - 8.0 05/07/2014 13:05 [facility] Protein, UA Neg Neg 05/07/2014 13:05 [facility] Urobilinogen, UA 0.2 0.2 - 1.0 E.U./dl 05/07/2014 13:05 [facility] Nitrite, UA Neg Neg 05/07/2014 13:05 [facility] Leuk Esterase 1+(A) Neg 05/07/2014 13:[address] [facility] Urine specimen (specimen) URINE / Unknown 05/07/2014 12:39 EST 05/07/2014 12:44 EST Lilibeth Haines MD URINALYSIS ORDERABLE S Performing Organization Address [facility] Co de Phone Number [facility] [address] [place] [address] * BLOOD BANK SPECIMEN HOLD (05/07/2014 12:39 EST) Hold BB Spec will exp at 23:59, [address] [facility] Blood specimen (specimen) 05/07/2014 12:39 EST Lilibeth Haines MD BLOOD BANK TESTS Performing Organization Address [facility] Co de Phone Number [facility] * HOLD SST (05/07/2014 12:35 EST) Hold SST Hold for further testing. Specimen will be held for 5 days. 05/07/2014 12:[address] [facility] BLOOD SPECIMEN / Unknown 05/07/2014 12:35 EST 05/07/2014 12:45 EST Kristi Leblanc MD LAB INFO SERVICE AND SUPPORT & PHONE RESULT Performing Organization Address [facility] Co de Phone Number [facility] [address] [place] [address] * HOLD PURPLE TOP (05/07/2014 12:35 EST) Hold Purple Top EDTA for hematology will be discarded after 48 hours, differential not available after 12 hours. 05/07/2014 12:[address] [facility] BLOOD SPECIMEN / Unknown 05/07/2014 12:35 EST 05/07/2014 12:45 EST Kristi Leblanc MD LAB INFO SERVICE AND SUPPORT & PHONE RESULT Performing Organization Address [facility] Co de Phone Number [facility] [address] [place] [address] * HOLD BLUE TOP (05/07/2014 12:35 EST) Hold Blue Top Sample for coagulation will be discarded after 4 hours 05/07/2014 13:[address] [facility] BLOOD SPECIMEN / Unknown 05/07/2014 12:35 EST 05/07/2014 12:45 EST Kristi Leblanc MD LAB INFO SERVICE AND SUPPORT & PHONE RESULT [facility] [address] [place] [address] * (ABNORMAL) GLUCOSE, GLUCOMETER (05/07/2014 11:30 EST) Glucose, Fingerstick 185(H) 70 - 100 mg/dl 05/07/2014 11:[address] [facility] [employer] Manufacturing Technician ID [id number] 05/07/2014 11:[address] [facility] Comment:Test Performed by Nu ing Services BLOOD SPECIMEN / Unknown 05/07/2014 11:30 EST 05/07/2014 11:32 EST Kristi Leblanc MD CHEMISTRY & BLOOD GA S ORDERABLES Performing Organization Address City/[facility]/ZIP Co de Phone Number [facility] [address] [place] [address] documented in this encounter Visit Diagnoses Diagnosis Abnormal maternal glucose tolerance, antepartum- Primary Type 2 diabetes mellitus (HCC-CMS) Type II or unspecified type diabetes mellitus without mention of complication, not stated as uncontrolled Chronic hypertension with exacerbation during in third trimester Supervision of high-risk of elderly multigravida Type 2 diabetes mellitus (HCC-CMS) Type II or unspecified type diabetes mellitus without mention of complication, not stated as uncontrolled documented in this encounter Administered Medications Inactive Administered Medications - up to 3 most recent administrations Medication Order MAR Action Action Date Dose Rate Site acetaminophen (TYLENOL) tablet 650 mg 650 mg, oral, PRN, Starting on 05/07/14 at 1116, Until 05/08/14 at 1124, Pain, , Routine Given 05/08/2014 1:24 EST 650 mg dextrose 50 % solution 12.5 g 12.5 g (25 mL), intravenous, PRN, Starting on Sat05/07/14 at 1605, Until 05/08/14 at 1124, Low Blood Sugar, Routine Given 05/08/2014 3:42 EST 12.5 g gabapentin (NEURONTIN) capsule 1,500 mg 1,500 mg, oral, AT BEDTIME, First dose on Sat05/07/14 at 2100, Until Discontinued, Routine Given 05/07/2014 20:45 EST 1,500 mg insulin aspart (NOVOLOG FLEXPEN) injection 15 Units 15 Units, subcutaneous, Once (Without Time Specified), 1 dose, Starting on Sat05/07/14 at 1140, Until Sat05/07/14 at 1245, Routine Given 05/07/2014 12:45 EST 15 Units insulin aspart (NOVOLOG FLEXPEN) injection 15 Units 15 Units, subcutaneous, 3 TIMES DAILY WITH MEALS, First dose on Sat05/07/14 at 1700, Until Discontinued, Routine Given 05/08/2014 8:36 EST 15 Units Abdominal Tissue Given 05/07/2014 18:35 EST 15 Units insulin glargine (LANTUS SOLOSTAR) injection pen 30 Units 30 Units, subcutaneous, AT BEDTIME, First dose on Sat05/07/14 at 2100, Until Discontinued, Routine Given 05/07/2014 20:47 EST 30 Units labetalol (NORMODYNE) tablet 200 mg 200 mg, oral, EVERY 12 HOURS, First dose on Sat05/07/14 at 2100, Until Discontinued, Routine Given 05/08/2014 9:06 EST 200 mg Given 05/07/2014 21:03 EST 200 mg lactated ringers (LR) infusion at 150 mL/hr, intravenous, CONTINUOUS, Starting on Sat05/07/14 at 1230, Until 05/08/14 at 1124, Routine Rate Documented 05/07/2014 19:15 EST 150 mL/hr New Bag 05/07/2014 16:45 EST 150 mL/hr Rate Change 05/07/2014 12:58 EST 150 mL/hr lactated ringers BOLUS 500 mL 500 mL, intravenous, NOW X1, 1 dose, On Sat05/07/14 at 1230, Routine Given 05/07/2014 12:30 EST 500 mL QUEtiapine (SEROQUEL) tablet 200 mg 200 mg, oral, 2 TIMES DAILY, First dose on Sat05/07/14 at 2100, Until Discontinued, Routine Given 05/07/2014 21:00 EST 20 0 mg documented in this encounter Active and Recently Administered Medications Times are shown in EST. Scheduled Medication Order 05/06/2014 05/07/2014 05/08/2014 gabapentin (NEURONTIN) capsule 1,500 mg (CANCELED) 1,500 mg, oral, AT BEDTIME, First dose on Sat05/07/14 at 2100, Until Discontinued, Routine 2044 (Given - Provider: Marian Sue RN) insulin aspart (NOVOLOG FLEXPEN) injection 15 Units (COMPLETED) 15 Units, subcutaneous, Once (Without Time Specified), 1 dose, Starting on Sat05/07/14 at 1140, Until Sat05/07/14 at 1245, Routine 124 (Given - Provider: Bess Paniagua) insulin aspart (NOVOLOG FLEXPEN) injection 15 Units (CANCELED) 15 Units, subcutaneous, 3 TIMES DAILY WITH MEALS, First dose on Sat05/07/14 at 1700, Until Discontinued, Routine 183 (Given - Provider: Bess Paniagua) 0836 (Given - Provider: Caterina Harrell, PRISCILA) insulin glargine (LANTUS SOLOSTAR) injection pen 30 Units (CANCELED) 30 Units, subcutaneous, AT BEDTIME, First dose on Sat05/07/14 at 2100, Until Discontinued, Routine 2046 (Given - Provider: Marian Sue, PRISCILA) labetalol (NORMODYNE) tablet 200 mg (CANCELED) 200 mg, oral, EVERY 12 HOURS, First dose on Sat05/07/14 at 2100, Until Discontinued, Routine 2102 (Given - Provider: Marian Sue RN) 0906 (Given - Provider: Caterina Harrell, PRISCILA) lactated ringers BOLUS 500 mL (COMPLETED) 500 mL, intravenous, NOW X1, 1 dose, On Sat05/07/14 at 1230, Routine 1230 (Given - Provider: Bess Paniagua) QUEtiapine (SEROQUEL) tablet 200 mg (CANCELED) 200 mg, oral, 2 TIMES DAILY, First dose on Sat05/07/14 at 2100, Until Discontinued, Routine 2100 (Given - Provider: Marian Sue RN) 0900 (Due) Continuous Medication Order 05/06/2014 05/07/2014 05/08/2014 lactated ringers (LR) infusion (CANCELED) at 150 mL/hr, intravenous, CONTINUOUS, Starting on Sat05/07/14 at 1230, Until 05/08/14 at 1124, Routine 1258 (Rate Change - Provider : Bess Paniagua)1645 (New Bag - Provider: Bess Paniagua)1915 (Rate Documented - Provider: Marian Sue, PRISCILA)1930 (Completed - Provider: Marian Sue, PRISCILA) PRN Medication Order 05/06/2014 05/07/2014 05/08/2014 acetaminophen (TYLENOL) tablet 650 mg (CANCELED) 650 mg, oral, PRN, Starting on Sat05/07/14 at 1116, Until 05/08/14 at 1124, Pain, , Routine 0124 (Given - Provid er: Mally Lewis RN) dextrose 50 % solution 12.5 g (CANCELED) 12.5 g (25 mL), intravenous, PRN, Starting on Sat05/07/14 at 1605, Until 05/08/14 at 1124, Low Blood Sugar, Routine 0342 (Given - Provid er: Malyl Lewis RN) documented in this encounter Orders Medications Ordered That Russel ht Not Have Been Administered Count Last Ordered Date First Ordered Date carboprost (HEMABATE) intram uscular injection 250 mcg 1 05/07/2014 cyclobenzaprine (FLEXERIL) tablet 10 mg 1 0 05/07/2014 ibuprofen (MOTRIN) tablet 400 mg 1 05/07/19 15 insulin glargine (LANTUS INOCENTE OSTAR) injection pen 30 Units 1 05/07/2014 methylergonovine (METHERGINE ) injection 200 mcg 1 05/07/2014 misoprostol (CYTOTEC) tablet 200 mcg 1 12/2014 misoprostol (CYTOTEC) tablet 800 mcg 1 12/2014 oxytocin in lactated ringers 30 units/500 ml 2 05/07/2014 Diet Count Last Ordered Date First Orde red Date DISCHARGE DIET 2 05/08/2014 Nursing Count Last Ordered Date First Orde red Date ACTIVITY INSTRUCTIONS 1 05/08/2014 BATHING INSTRUCTIONS 1 05/08/2014 Admission Count Last Ordered Date First Orde red Date STATUS: OUTPATIENT OBSERVATION SERVICES 1 0 05/07/2014 Transfer Count Last Ordered Date First Orde red Date NOTIFY PPS OF DISCHARGE COMPLETE 1 05/08/19 15 Discharge Count Last Ordered Date First Orde red Date DISCHARGE PATIENT 1 05/08/2014 Legal Count Last Ordered Date First Orde red Date MISCELLANEOUS DISCHARGE INSTRUCTIONS 04/29 documented in this encounter Care Teams Insurance Claims Specialist Relationship Specialty Start Date End Date Annette Sidhu, [employer] [address] [place] [address] [phone] PCP - General 03/19/13 07/06/19 documented as of this encounter
--- OUTSIDE RECORDS SUMMARY | 2024-02-14 15:21 | XMS_ITS | Encounter Summary ---
Author Organization [facility] Address [address] [place] [id number] Care Team Providers Care Intensive Care Ambulance Paramedic Name Role Phone Annette Sidhu APRN Primary Care Provider [phone] Encounter Details Date Type Department Care Team (Late st Contact Info) Description 04/30/2014 11:10 EST - 04/30/2014 13:[address] [facility] Hospital Encounter [facility] [phone] Haim Méndez MD [address] [place] [address], [facility] [address] [place] [phone] Discharge Disposition: Home or Self Care Social [...] Component Type 2 diabetes mellitus ([facility]) 8.7(07/07/2015 5:05 EST) No Annmarie Vigil documented as of this encounter Visit Diagnoses Not on filedocumented in this encounter Care Teams Intensive Care Ambulance Paramedic Relationship Specialty Start Date End Date Annette Sidhu APRN [address] [place] [address] [phone] PCP - General 03/19/13 07/06/19 documented as of this encounter
--- OUTSIDE RECORDS SUMMARY | 2024-02-14 15:21 | XMS_ITS | Encounter Summary ---
Author Organization [facility] Address [address] [place] [address] Care Team Providers Care Dough Mixing Machine Operator Name Role Phone Annette Sidhu APRN Primary Care Provider [phone] Reason for Visit * Reason Onset Date Comments Medication Management 04/19/2014 Encounter Details Date Type Department Care Team (Late st Contact Info) Description 04/19/2014 Orders Only [facility] Obstetrics & Midwifery - [address] [address] Michelle Devine RN Social History Tobacco Use Types Packs/Day Years Used Date Smoking Tobacco: Every Day Cigarettes 0.5 3 Smokeless Tobacco: Never Alcohol Use Standard Drinks/Week Comments No 0 (1 standard drink = 0.6 oz pur e alcohol) Comments Yes Sex and Gender Information Value Date Recorded Sex Assigned at Not on file Gender Identity Not on file Sexual Orientation Not on file documented as of this encounter Functional Status Functional Status Response Date of Assess ment Are you blind or do you have serious difficulty seeing, even when wearing glasses? No 02/22/2014 Do you have serious difficul ty walking or climbing stairs? (5 years old or older) No 02/22/2014 Do you have difficulty dress ing or bathing? (5 years old or older) No 02/22/2014 Because of a physical, menta l, or emotional condition, do you have difficulty doing errands alone such as visiting a doctor's office or shopping? (15 years old or older) No 02/22/2014 Cognitive Status Response Date of Assessm ent Because of a physical, menta l, or emotional condition, do you have serious difficulty concentrating, remembering, or making decisions? (5 years old or older) Yes 02/22/2014 documented as of this encounter Ordered Prescriptions Prescription Sig Dispensed Refills Start Date End Da te insulin pen needles 31G x 5/16 BD UltraFine Short. Will be using 4 pen needles per day at this point.. 100 Each 3 04/19/2014 04/27/2014 insulin aspart (NOVOLOG FLEXPEN) 100 unit/mL injectable pen Begin with 8 units of novolog with each meal, dosing will increase with as her progresses.. 1 Box 1 04/19/2014 04/27/2014 insulin glargine (LANTUS SOLOSTAR) 100 unit/mL (3 mL) injection pen Begin with 35 units of lantus at bedtime, dose will increase with her . 1 Box 1 04/19/2014 04/27/2014 documented in this encounter Progress Notes * Michelle Devine, RN - 04/19/2014 6287 EST Orders entered for Lantus insulin to start with 35 units at HS, and Novolog 8 units with each meal to begin, phoned to [facility] per Dr. Friend. documented in this encounter Plan of Treatment Not on file documented as of this encounter Goals Goal Patient Goal Type Associated Problems Recent Progress Patient-Stated? Author HEMOGLOBIN A1C < 7.0 Result Component Type 2 diabetes mellitus ([facility]) 8.7(07/07/2015 5:05 EST) No Annmarie Vigil documented as of this encounter Visit Diagnoses Not on filedocumented in this encounter Care Teams Dough Mixing Machine Operator Relationship Specialty Start Date End Date Annette Sidhu, ENGINE LATHE TENDER [address] [place] [phone] PCP - General 03/19/13 07/06/19 documented as of this encounter
--- OUTSIDE RECORDS SUMMARY | 2024-02-14 15:21 | XMS_ITS | Encounter Summary ---
Author Organization [facility] Address [address] [place] [address] Care Team Providers Care Video Network Engineer Name Role Phone Annette Sidhu APRN Primary Care Provider [phone] Reason for Visit * Reason Comments Non-stress Test Encounter Details Date Type Department Care Team (Late st Contact Info) Description 04/20/2014 3:03 EST - 04/20/2014 3:45 EST Hospital Encounter [facility] [address] [place] [address] Elke Stevenson MD [address] [facility], [address] [place] [address] Supervision of high-risk of elderly multigravida (Primary Dx) Discharge Disposition: Home or Self [...] Sign Reading Time Taken Comments Blood Pressure 133/79 04/20/2014 0315 EST Pulse - - Temperature 35.6 ??C (96.1 ??F) 04/20/2014314 EST Respiratory Rate 18 04/20/2014 0315 EST Oxygen Saturation - - Inhaled Oxygen Concentration - - Weight - - Height - - Body Mass Index - - documented in this encounter Functional Status Functional Status Response Date of Assess ment Are you deaf or do you have serious difficulty h earing? No 04/20/2014 Are you blind or do you have serious difficulty seeing, even when wearing glasses? No 04/20/2014 Do you have serious difficul ty walking or climbing stairs? (5 years old or older) No 04/20/2014 Do you have difficulty dress ing or bathing? (5 years old or older) No 04/20/2014 Because of a physical, menta l, or emotional condition, do you have difficulty doing errands alone such as visiting a doctor's office or shopping? (15 years old or older) No 04/20/2014 Cognitive Status Response Date of Assessm ent Because of a physical, menta l, or emotional condition, do you have serious difficulty concentrating, remembering, or making decisions? (5 years old or older) Yes 04/20/2014 documented as of this encounter Discharge Instructions * Discharge Instr - Other Orders* Sarah Perez MD - 04/20/2014 3:44 EST Discharge Instructions L&D Call your provider if: Your water breaks There's any bright red bleeding You are not feeling the baby move Severe headaches and/or blurry vision Contractions are closer together and/or stronger, or you are having constant pain Medications: Continue any present medication Activity: Drink plenty of fluids and eat well As tolerated, lie on your left side while resting/napping Call Provider's Office For: To continue with your regularly scheduled appointments. documented in this encounter Medications at Time of Discharge Medication Sig Dispensed Refills Start Date End Date GABAPENTIN (NEURONTIN ORAL) Take 1,200 mg by mouth daily. ranitidine (ZANTAC) 150 mg tablet Take 300 mg by mouth 2 times daily. acetaminophen (TYLENOL) 325 mg tablet Take 2 Tabs by mouth every 4 hours as needed for Pain. 04/27/2014 05/16/2014 acetaminophen (TYLENOL) 500 mg tablet Take 2 Tabs by mouth every 4 hours as needed. 04/27/2014 cyclobenzaprine (FLEXERIL) 10 mg tablet Take 10 mg by mouth 2 times daily. 06/28/2017 dexmethylphenidate (FOCALIN) 10 mg tablet Take 10 mg by mouth 3 times daily. 10/21/2020 insulin aspart (NOVOLOG FLEXPEN) 100 unit/mL injectable pen Inject 15 Units into the skin 3 times daily with meals. 1 Box 1 04/27/2014 05/16/2014 insulin aspart (NOVOLOG FLEXPEN) 100 unit/mL injectable pen Begin with 8 units of novolog with each meal, dosing will increase with as her progresses.. 1 Box 1 04/19/2014 04/27/2014 insulin glargine (LANTUS SOLOSTAR) 100 unit/mL (3 mL) injection pen Inject 20 Units into the skin once daily. 1 Box 1 04/27/2014 05/16/2014 insulin glargine (LANTUS SOLOSTAR) 100 unit/mL (3 mL) injection pen Begin with 35 units of lantus at bedtime, dose will increase with her . 1 Box 1 04/19/2014 04/27/2014 insulin pen needles 31G x 5/16 BD UltraFine Short. Will be using 4 pen needles per day at this point.. 100 Each 3 04/27/2014 05/16/2014 insulin pen needles 31G x 5/16 BD UltraFine Short. Will be using 4 pen needles per day at this point.. 100 Each 3 04/19/2014 04/27/2014 labetalol (NORMODYNE) 200 mg tablet Take 1 Tab by mouth every 12 hours. 60 Tab 2 04/27/2014 05/16/2014 lidocaine 5 % (LIDODERM) 5 %(700 mg/patch) patch Apply patch to her back or hip as needed for pain 15 Patch 0 05/06/2013 04/27/2014 multivitamin vit-iron fumarate-FA (STUARTNATAL) 27 mg iron- [...] documented in this encounter Progress Notes * Neva Matias RN - 04/20/2014 0339 EST 0305 33+1wks here for NST. Offers no complaints or requests, denies pain or ctx. States baby is moving well. No leaking or bleeding. EFM explained and applied. Call lindsay within reach. 3:42 Strip reviewed by Bita Perez MD. 3:45 Dr. Perez to bedside; states strip is reactive and pt can be d/c. 3:47 D/c instructions reviewed and discussed. Written and verbal understanding obtained. * Selvin Christie MD - 04/20/2014322 EST OB NST Note: Patient on Labor and Delivery for scheduled NST. She is feeling well. Denies ctx, lof, or vb. +FM. NST reactive with baseline 150bpm, moderate variability, spontaneous accelerations, and no decelerations. [place] quiescent. D/W Dr. Pratik Perez MD, PGY3 Department of Obstetrics and Gynecology NST Report-OB attending Date read: 04/20/14 Baseline Heart Rate: 150 Accelerations: present Movement: present Decelerations: absent Contractions: absent Interpretation: reactive, category 1 Selvin Christie MD 04/20/2014 6:20 documented in this encounter Plan of Treatment Not on file documented as of this encounter Goals Goal Patient Goal Type Associated Problems Recent Progress Patient-Stated? Author HEMOGLOBIN A1C < 7.0 Result Component Type 2 diabetes mellitus ([facility]) 8.7(07/07/2015 5:05 EST) No Annmarie Vigil documented as of this encounter Visit Diagnoses Diagnosis Supervision of high-risk of elderly multigravida- Primary Supervision of high-risk of elderly multigravida documented in this encounter Discontinued Medications Medication Sig Discontinue Reason Start Date End Da te metFORMIN (GLUCOPHAGE) 500 mg tablet Take 1,000 mg by mouth 2 times daily. 04/20/2014 glyBURIDE (DIABETA) 5 mg tablet Take 1 Tab by mouth 2 times daily with breakfast and dinner. 02/22/2014 04/20/2014 documented as of this encounter Orders Admission Count Last Ordered Date First Orde red Date STATUS: OUTPATIENT OBSERVATION SERVICES 1 1 06/21/2013 Transfer Count Last Ordered Date First Orde red Date NOTIFY PPS OF DISCHARGE COMPLETE 1 04/20/20 14 Discharge Count Last Ordered Date First Orde red Date DISCHARGE PATIENT 1 04/20/2014 documented in this encounter Care Teams Video Network Engineer Relationship Specialty Start Date End Date Annette Sidhu, ACQUISITION COST ESTIMATOR [address] [place] [phone] PCP - General 03/19/13 07/06/19 documented as of this encounter
--- OUTSIDE RECORDS SUMMARY | 2024-02-14 15:21 | XMS_ITS | Encounter Summary ---
Author Organization [facility] Address [address] [place] [address] Care Team Providers Care Nutrition Technician Name Role Phone Annette Sidhu APRN Primary Care Provider [phone] Encounter Details Date Type Department Care Team (Late st Contact Info) Description 04/30/2014 Phlebotomy Only [address] [address] [place], Outpatient Benign essential hypertension antepartum Social History Tobacco Use Types Packs/Day Years [...] Yes 04/24/2014 documented as of this encounter Plan of Treatment Not on file documented as of this encounter Goals Goal Patient Goal Type Associated Problems Recent Progress Patient-Stated? Author HEMOGLOBIN A1C < 7.0 Result Component Type 2 diabetes mellitus ([facility]) 8.7(07/07/2015 5:05 EST) No Annmarie Vigil documented as of this encounter Procedures Procedure Name Priority Date/Time Associated Diagnosis Comments COMPLETE BLOOD COUNT Routine 04/30/2014 14:03 EST Benign essential hypertension antepartum URIC ACID Routine 04/30/2014 14:03 EST Benign essential hypertension antepartum ALT Routine 04/30/2014 14:03 EST Benign essential hypertension antepartum AST Routine 04/30/2014 14:03 EST Benign essential hypertension antepartum CREATININE Routine 04/30/2014 14:03 EST Benign essential hypertension antepartum documented in this encounter Results * AST (04/30/2014 14:03 EST) AST 25 15 - 46 U/L 04/30/2014 15:15 EST [facility] Blood specimen (specimen) BLOOD SPECIMEN / Unknown 04/30/2014 14:03 EST 04/30/2014 14:29 EST Elke Stevenson MD CHEMISTRY & B LOOD GAS ORDERABLES [facility] [address] [place] [address] * ALT (04/30/2014 14:03 EST) ALT 27 <53 U/L 04/30/2014 15:15 EST [facility] Blood specimen (specimen) BLOOD SPECIMEN / Unknown 04/30/2014 14:03 EST 04/30/2014 14:29 EST Elke Stevenson MD CHEMISTRY & B LOOD GAS ORDERABLES [facility] [address] [place] [address] * (ABNORMAL) HEMAGRAM (04/30/2014 14:03 EST) WBC 17.07(H) 4.0 - 12.4 K/cmm 04/30/2014 14:42 [facility] RBC 4.25 3.86 - 5.04 M/cmm 04/30/2014 14:42 [facility] Hemoglobin 13.5 11.6 - 15.2 gm/dl 04/30/2014 14:42 [facility] HCT 39.9 34.9 - 44.4 % 04/30/2014 14:42 [facility] MCV 94 81 - 98 fl 04/30/2014 14:42 [facility] MCH 31.8 26.7 - 33.3 pg 04/30/2014 14:42 [facility] MCHC 33.8 32.1 - 35.9 gm/dl 04/30/2014 14:42 [facility] PLT 331(H) 141 - 320 K/cmm 04/30/2014 14:42 [facility] RDW-CV 12.9 11.7 - 14.6 % 04/30/2014 14:42 [facility] Blood specimen (specimen) BLOOD SPECIMEN / Unknown 04/30/2014 14:03 EST 04/30/2014 14:29 EST Elke Stevenson MD HEMATOLOGY & PF4 ORDERABLES [facility] [address] [place] [address] * URIC ACID (04/30/2014 14:03 EST) Uric Acid 4.8 2.2 - 7.7 mg/dl 04/30/2014 15:15 [facility] Blood specimen (specimen) BLOOD SPECIMEN / Unknown 04/30/2014 14:03 EST 04/30/2014 14:29 EST Elke Stevenson MD CHEMISTRY & B LOOD GAS ORDERABLES Performing Organization Address City/[facility]/ZIP Co de Phone Number [facility] [address] [place] [address] * CREATININE (04/30/2014 14:03 EST) Creatinine 0.58 0.52 - 1.04 mg/dl 04/30/2014 15:15 EST [facility] GFR, Calculated >60 >60 ml/min/1.7 3m2 04/30/2014 15:15 EST [facility] Blood specimen (specimen) BLOOD SPECIMEN / Unknown 04/30/2014 14:03 EST 04/30/2014 14:29 EST Elke Stevenson MD CHEMISTRY & B LOOD GAS ORDERABLES Performing Organization Address City/[facility] Co de Phone Number [facility] [address] [place] [phone] documented in this encounter Visit Diagnoses Diagnosis Benign essential hypertension antepartum documented in this encounter Care Teams Nutrition Technician Relationship Specialty Start Date End Date Annette Sidhu APRN [address] [place] [phone] PCP - General 03/19/13 07/06/19 documented as of this encounter
--- OUTSIDE RECORDS SUMMARY | 2024-02-14 15:21 | XMS_ITS | Encounter Summary ---
Author Organization [facility] Address [address] [place] [address] Care Team Providers Care Fare Enforcement Officer Name Role Phone Annette Sidhu APRN Primary Care Provider [phone] Reason for Visit * Reason Comments Non-stress Test Encounter Details Date Type Department Care Team (Late st Contact Info) Description 05/07/2014 9:30 EST Nurse Only [facility] Obstetrics & Midwifery - [address] [address] Unknown, Provider, Nurse, Bambi Chronic hypertension with exacerbation during in third trimester (Primary Dx); Diabetes mellitus, antepartum(648.03) Social History Tobacco Use Types Packs/Day Years [...] encounter Discharge Diagnoses Diagnosis 642.03 ESSEN HYPERTEN-ANTEPART[ICD-9-CM] 648.03 DIABETES-ANTEPARTUM[ICD-9-CM] documented in this encounter Progress Notes * Charity Onofre MD - 05/07/2014 1103 EST NST Report Baseline Heart Rate: 160 Accelerations: present Movement: present Decelerations: absent Contractions: irritability Interpretation: reactive BPP 10/10 but persistent FHR baseline 160. After APV to L&D for extended monitoring. Charity Onofre MD documented in this encounter Plan of Treatment Not on file documented as of this encounter Goals Goal Patient Goal Type Associated Problems Recent Progress Patient-Stated? Author HEMOGLOBIN A1C < 7.0 Result Component Type 2 diabetes mellitus ([facility]) 8.7(07/07/2015 5:05 EST) No Annmarie Vigil documented as of this encounter Visit Diagnoses Diagnosis Chronic hypertension with exacerbation during in third trimester- Primary Diabetes mellitus, antepartum(648.03) Diabetes mellitus, antepartum documented in this encounter Care Teams Fare Enforcement Officer Relationship Specialty Start Date End Date Annette Sidhu APRN [address] [place] [phone] PCP - General 03/19/13 07/06/19 documented as of this encounter
--- OUTSIDE RECORDS SUMMARY | 2024-02-14 15:21 | XMS_ITS | Encounter Summary ---
Author Organization [facility] Address [address] [place] [id number] Care Team Providers Care Tobacco Stripping Machine Operator Name Role Phone Annette Sidhu APRN Primary Care Provider Encounter Details Date Type Department Care Team (Late st Contact Info) Description 04/16/2014 13:19 EST - 04/16/2014 23:59 [facility] Hospital Encounter [facility] [phone] Haim Méndez MD [address] [place] [address], [address] [place] [phone] Discharge Disposition: Home or Self Care Social [...] this encounter Discharge Diagnoses Diagnosis 648.03 DIABETES-ANTEPARTUM[ICD-9-CM] 250.00 DIABETES UNCOMPL ADULT-TYPE II[ICD-9-CM] 659.63 OTHER ADVANCED MATERN AGE-ANTEPART[ICD-9-CM] documented in this encounter Medications at Time of Discharge Medication Sig Dispensed Refills Start Date End Date GABAPENTIN (NEURONTIN ORAL) Take 1,200 mg by mouth daily. acetaminophen (TYLENOL) 500 mg tablet Take 2 Tabs by mouth every 4 hours as needed. 04/27/2014 cyclobenzaprine (FLEXERIL) 10 mg tablet Take 10 mg by mouth 2 times daily. 06/28/2017 dexmethylphenidate (FOCALIN) 10 mg tablet Take 10 mg by mouth 3 times daily. 10/21/2020 glyBURIDE (DIABETA) 5 mg tablet Take 1 Tab by mouth 2 times daily with breakfast and dinner. 60 Tab 3 02/22/2014 04/20/2014 lidocaine 5 % (LIDODERM) 5 %(700 mg/patch) patch Apply patch to her back or hip as needed for pain 15 Patch 0 05/06/2013 04/27/2014 metFORMIN (GLUCOPHAGE) 500 mg tablet Take 1,000 mg by mouth 2 times daily. 04/20/2014 multivitamin vit-iron fumarate-FA (STUARTNATAL) 27 mg iron- [...] Code Departure Means Destination Home or Self Retirement documented in this encounter Plan of Treatment Not on file documented as of this encounter Goals Goal Patient Goal Type Associated Problems Recent Progress Patient-Stated? Author HEMOGLOBIN A1C < 7.0 Result Component Type 2 diabetes mellitus ([facility]) 8.7(07/07/2015 5:05 EST) No Annmarie Vigil documented as of this encounter Visit Diagnoses Not on filedocumented in this encounter Care Teams Tobacco Stripping Machine Operator Relationship Specialty Start Date End Date Annette Sidhu APRN [address] [place] [phone] PCP - General 03/19/13 07/06/19 documented as of this encounter
--- OUTSIDE RECORDS SUMMARY | 2024-02-14 15:21 | XMS_ITS | Encounter Summary ---
Author Organization [facility] Address [address] [place] [address] Care Team Providers Care Dye Operator Name Role Phone Annette Sidhu APRN Primary Care Provider Encounter Details Date Type Department Care Team (Latest Contact Info) Description 04/30/2014 14:00 EST - 04/30/2014 23:59 [facility] Hospital Encounter [address] [address] Unknown, Provider, Discharge Disposition: Home or Self Care Social [...] Yes 04/24/2014 documented as of this encounter Medications at [...] Code Departure Means Destination Home or Self [facility] documented in this encounter Plan of Treatment Not on file documented as of this encounter Goals Goal Patient Goal Type Associated Problems Recent Progress Patient-Stated? Author HEMOGLOBIN A1C < 7.0 Result Component Type 2 diabetes mellitus ([facility]) 8.7(07/07/2015 5:05 EST) Annmarie Lopez documented as of this encounter Visit Diagnoses Not on filedocumented in this encounter Care Teams Dye Operator Relationship Specialty Start Date End Date Annette Sidhu, PRINTER OPERATOR [address] [place] [phone] PCP - General 03/19/13 07/06/19 documented as of this encounter
--- OUTSIDE RECORDS SUMMARY | 2024-02-14 15:21 | XMS_ITS | Encounter Summary ---
Author Organization [facility] Address [address] [place] [id number] Care Team Providers Care Heel Turner Name Role Phone Annette Sidhu APRN Primary Care Provider Reason for Visit * Reason Comments Routine Visit Encounter Details Date Type Department Care Team (Late st Contact Info) Description 05/07/2014 10:[address] [facility] Obstetrics & [place] [address] Eduardo Friend MD [address] [place] [address] GA: 35w4d Social History Tobacco Use Types Packs/Day Years [...] Sign Reading Time Taken Comments Blood Pressure 142/76 05/07/2014 1000 EST Pulse - - Temperature - - Respiratory Rate - - Oxygen Saturation - - Inhaled Oxygen Concentration - - Weight 89.5 kg (197 lb 6.4 oz) 05/07/[address] Height 152.4 cm (5') 05/07/2014 1000 EST Body Mass Index 38.55 05/07/2014 1000 EST documented in this encounter Functional Status [...] Yes 04/24/2014 documented as of this encounter Progress Notes * Khalida Quiñones MD - 05/10/2014 1343 EST MFMS ATTENDING I discussed the patient with the fellow at the time of the visit. I agree with the findings and theplan of care documented in the fellow's note. Khalida Quiñones MD * Eduardo Friend MD - 05/07/2014 1810 EST Subjective Guzman Jean is a 38 y.o. at 35w4d here for a routine visit. Additional Notes: N/A Movement:Present Contractions / Labor:None Vaginal Bleeding: None Leakage of Fluid: None Objective Vitals: BP: 142/76 mmHg Height: 152.4 cm (60) Weight : 89.54 kg (197 lb 6.4 oz) BMI: 38.633 Movement: Present Assessment 38 y.o. at 35w4d with Type 2 DM, Hypertension here for a routine visit. Plan Supervision of high-risk of elderly multigravida Dating: LMP consistent with a 6 week ultrasound labs Rh A negative / Abs negative /Rubella Immune / Varicella Immune / HepB negative / HIVnegative / RPR NR Pap: Negative with neg HR HPV G/C: Negative Urine cx: Negative Aneuploidy screening: NIPT low risk for T21, T13, T18 Influenza vaccination 02/22/2014 LONG-TERM Detailed: marginal umbilical cord insertion Rhogam given 02/22/2014 Tdap vaccination 04/09/14 [ ] GBS pending [ ] Contraception CARE COORDINATION MANAGER - nights L&D The patient was sent to L&D for extended monitoring. tachycardia Previous delivery, antepartum condition or complication The patient desires a repeat delivery. Plan for 39 weeks' gestation. Diabetes mellitus, antepartum(648.03) Baseline pre-eclampsia labs: Never did. First 24hr prot 03/2014, 550mg Opthalmology- 08/2013 TSH- 1.06 HgbA1c- 7.4 LONG-TERM Detailed - Marginal cord insertion echo - [...] call her on Saturday. EFW 98%tile today. Chronic hypertension with exacerbation during in third trimester The patient has a history of chronic hypertension pre dating . Her primary care physician discontinued her PHILIPPE-inhibitor prior to . The patient stopped taking her Labetalol because it was giving her headaches. The patient's third trimester 24-hour urine was 550mg/24 hours. Currently treating as chronic hypertension. Blood pressure stable today. Discussed the signs and symptoms of pre-/term labor and when to call the office. Follow-up in 1 week(s). Seen with Dr. Quiñones. Eduardo Friend MD documented in this encounter Miscellaneous Notes * Assessment & Plan Note - Eduardo Friend MD - 05/07/2014 1810 ESTAssociated Problem(s): Chronic hypertension with exacerbation during in third trimester The patient has a history of chronic hypertension pre dating . Her primary care physician discontinued her PHILIPPE-inhibitor prior to . The patient stopped taking her Labetalol because it was giving her headaches. The patient's third trimester 24-hour urine was 550mg/24 hours. Currently treating as chronic hypertension. Blood pressure stable today. * Assessment & Plan Note - Eduardo Friend MD - 05/07/2014 1807 ESTAssociated Problem(s): Diabetes mellitus in , antepartum Baseline pre-eclampsia labs: Never did. First 24hr prot 03/2014, 550mg Opthalmology- 08/2013 TSH- 1.06 HgbA1c- 7.4 LONG-TERM Detailed - Marginal cord insertion echo - [...] call her on Saturday. EFW 98%tile today. * Assessment & Plan Note - Eduardo Friend MD - 05/07/2014 1804 ESTAssociated Problem(s): Previous delivery, antepartum condition or complication The patient desires a repeat delivery. Plan for 39 weeks' gestation. * Assessment & Plan Note - Eduardo Friend MD - 05/07/2014 1804 ESTAssociated Problem(s): Supervision of high-risk of elderly multigravida (Resolved 06/23/2014) Dating: LMP consistent with a 6 week ultrasound labs Rh A negative / Abs negative /Rubella Immune / Varicella Immune / HepB negative / HIVnegative / RPR NR Pap: Negative with neg HR HPV G/C: Negative Urine cx: Negative Aneuploidy screening: NIPT low risk for T21, T13, T18 Influenza vaccination 02/22/2014 LONG-TERM Detailed: marginal umbilical cord insertion Rhogam given 02/22/2014 Tdap vaccination 04/09/14 [ ] GBS pending [ ] Contraception CARE COORDINATION MANAGER - nights L&D The patient was sent to L&D for extended monitoring. tachycardia documented in this encounter Plan of Treatment Not on file documented as of this encounter Goals Goal Patient Goal Type Associated Problems Recent Progress Patient-Stated? Author HEMOGLOBIN A1C < 7.0 Result Component Type 2 diabetes mellitus ([facility]) 8.7(07/07/2015 5:05 EST) No Annmarie Vigil documented as of this encounter Visit Diagnoses Diagnosis Supervision of high-risk of elderly multigravida- Primary documented in this encounter Discontinued Medications Medication Sig Discontinue Reason Start Date End Da te terconazole (TERAZOL 3) [address] 1 Suppository vaginally daily. 04/09/2014 05/07/2014 documented as of this encounter Care Teams Heel Turner Relationship Specialty Start Date End Date Annette Sidhu APRN [address] [place] [phone] PCP - General 03/19/13 07/06/19 documented as of this encounter
--- OUTSIDE RECORDS SUMMARY | 2024-02-14 15:21 | XMS_ITS | Encounter Summary ---
Author Organization [facility] Address [address] [place] [address] Care Team Providers Care Sifter And Miller Name Role Phone Annette Sidhu APRN Primary Care Provider [phone] Reason for Visit * Reason Comments Routine Visit Encounter Details Date Type Department Care Team (Late st Contact Info) Description 04/23/2014 16:15 EST Routine [facility] Obstetrics & Midwifery - [address] [address] Kristi Leblanc MD [address] [place] [address] GA: 33w4d Social History Tobacco Use Types Packs/Day Years [...] Sign Reading Time Taken Comments Blood Pressure 156/78 04/23/2014 1605 EST Pulse - - Temperature - - Respiratory Rate - - Oxygen Saturation - - Inhaled Oxygen Concentration - - Weight 86.2 kg (190 lb) 04/23/2014 1605 EST Height 152.4 cm (5') 04/23/2014 1605 EST Body Mass Index 37.11 04/23/2014 1605 EST documented in this encounter Functional Status [...] Yes 04/20/2014 documented as of this encounter Progress Notes * Wanda Stack - 04/23/2014 1623 EST Results for orders placed in visit on 04/23/14 POCT URINE DIPSTICK Result Value Range Color YELLOW Clarity, UA Clear Glucose 2+ (*) Neg Bilirubin Neg Neg Ketones Trace (*) Neg Specific [place] 1.020 1.001 - 1.035 Blood Neg Neg pH 5.5 4.6 - 8.0 Protein Neg Neg Urobilinogen 0.2 0.2 - 1.0 E.U./dl Nitrite Neg Neg Leuk Esterase Neg Neg Tech ID [id number] . Wanda Stack 04.23.14 * Kristi Leblanc MD - 04/23/2014 1604 EST [facility] CC: 38 y.o. @ 33w4d here for APV. S: +FM. No LOF or VB. O: BP 156/78 Ht 152.4 cm (60) Wt 86.183 kg (190 lb) BMI 37.11 kg/m2 LMP 08/31/2013 A/P 38 y.o. @ 33w4d Supervision of high-risk of elderly multigravida GBS next visit. Chronic hypertension with exacerbation during in third trimester BP = 156/78 Urine dip -- no protein. No overt s/sx of PRE -- BP may be elevated secondary to inadequate medication. However, in order toensure no PRE, will send to L and D for BP monitoring, labs. If abnl labs or P/Cr > 0.3 --> PRE If normal labs --> start antihypertensive. 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 States compliant with nutrition recommendations. No blood sugars recorded, but pt states FBS all 250- 400 and most postprandial blood sugars 250. Suboptimal glycemic control on current regimen. Will changed to weight based split dose insulin regimen as follows (69 units total daily): AM 30 NPH/15 novolog Dinner 12 novolog QHS 12 novolog Will start above tonight PRIOR to dinner on L and D. Pt to be admitted for at least overnight!!! Also needs NST. RTC one week after d/c'd from L and D. Kristi Leblanc MD documented in this encounter Miscellaneous Notes * Assessment & Plan Note - Kristi Leblanc MD - 04/23/2014 1632 ESTAssociated Problem(s): Diabetes mellitus in , antepartum Taking insulin 35 lantus in AM and novoog before meals. States compliant with nutrition recommendations. No blood sugars recorded, but pt states FBS all 250- 400 and most postprandial blood sugars 250. Suboptimal glycemic control on current regimen. Will changed to weight based split dose insulin regimen as follows (69 units total daily): AM 30 NPH/15 novolog Dinner 12 novolog QHS 12 novolog Will start above tonight PRIOR to dinner on L and D. * Assessment & Plan Note - Kristi Leblanc MD - 04/23/2014 1622 ESTAssociated Problem(s): Chronic hypertension with exacerbation during in third trimester BP = 156/78 Urine dip -- no protein. No overt s/sx of PRE -- BP may be elevated secondary to inadequate medication. However, in order toensure no PRE, will send to L and D for BP monitoring, labs. If abnl labs or P/Cr > 0.3 --> PRE If normal labs --> start antihypertensive. * Assessment & Plan Note - Kristi Leblanc MD - 04/23/2014 1607 ESTAssociated Problem(s): Supervision of high-risk of elderly multigravida (Resolved 06/23/2014) GBS next visit. documented in this encounter Plan of Treatment Not on file documented as of this encounter Goals Goal Patient Goal Type Associated Problems Recent Progress Patient-Stated? Author HEMOGLOBIN A1C < 7.0 Result Component Type 2 diabetes mellitus ([facility]) 8.7(07/07/2015 5:05 EST) No Annmarie Vigil documented as of this encounter Procedures Procedure Name Priority Date/Time Associated Diagnosis Comments POCT URINE DIPSTICK, CLINITEK Routine 04/23/2014 16:11 EST Chronic hypertension with exacerbation during in third trimester documented in this encounter Results * (ABNORMAL) POCT URINE DIPSTICK (04/23/2014 16:11 EST) Color YELLOW 04/23/2014 16:17 [facility] Clarity, UA Clear 04/23/2014 16:17 [facility] Glucose 2+(A) Neg 04/23/2014 16:17 [facility] Bilirubin Neg Neg 04/23/2014 16:17 [facility] Ketones Trace(A) Neg 04/23/2014 16:17 [facility] Specific [place] 1.020 1.001 - 1.035 04/23/2014 16:17 [facility] Blood Neg Neg 04/23/2014 16:17 [facility] pH 5.5 4.6 - 8.0 04/23/2014 16:17 [facility] Protein Neg Neg 04/23/2014 16:17 [facility] Urobilinogen 0.2 0.2 - 1.0 E.U./dl 04/23/2014 16:17 EST [facility] Nitrite Neg Neg 04/23/2014 16:17 EST [facility] Leuk Esterase Neg Neg 04/23/2014 16:17 EST [facility] superannuation funds manager ID [id number] 04/23/2014 16:17 EST [facility] Comment:Test performed at [facility] Urine specimen (specimen) URINE / Unknown 04/23/2014 16:11 EST 04/23/2014 16:17 EST Kristi Leblanc MD POINT OF CARE TEST O RDERABLES [facility] [address] [place] [address] documented in this encounter Visit Diagnoses Diagnosis Chronic hypertension with exacerbation during in third trimester- Primary Diabetes mellitus, 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
--- OUTSIDE RECORDS SUMMARY | 2024-02-14 15:21 | XMS_ITS | Encounter Summary ---
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
--- OUTSIDE RECORDS SUMMARY | 2024-02-14 15:21 | XMS_ITS | Encounter Summary ---
Author Organization [facility] Address [address] [place] [address] Care Team Providers Care Line Assigner Name Role Phone Bhargav Padron APRN Primary Care Provider Reason for Referral * (Routine) - Closed Specialty Diagnoses / Procedures Referred By Savannah ashton Referred To Contact Anna Corley MD [address] [address] Referral ID Status Reason Start Date Expiration Date V isits Requested Visits Authorized [id number] Closed Specialty Services Required 05/16/2014 1 1 Reason for Visit * Reason Comments Non-stress Test Encounter Details Date Type Department Care Team (Late st Contact Info) Description 05/12/2014 4:55 EST - 05/16/2014 18:00 EST Hospital Encounter [facility] Mother/Baby [address] [place] [address] Kristi Leblanc MD [address] [place] [address] Routine history and physical examination of adult (Primary Dx); Type 2 diabetes mellitus (CMS-HCC) (HCC-CMS); Chronic hypertension with exacerbation during in third trimester; Diabetes mellitus, antepartum(648.03); Supervision of high-risk of elderly multigravida; Non-reassuring heart rate or rhythm affecting mother; Fasting hyperglycemia Discharge Disposition: Home or Self Care Social [...] Sign Reading Time Taken Comments Blood Pressure 128/58 05/16/2014 0903 EST Pulse 105 05/14/2014 2153 EST Temperature 36.2 ??C (97.2 ??F) 05/16/2014 0903 EST Respiratory Rate 18 05/16/2014 0903 EST Oxygen Saturation 100% 05/16/2014 0903 EST Inhaled Oxygen Concentration - - Weight 90 kg (198 lb 6.6 oz) 05/12/2014 0948 EST Height 154 cm (5' 0.63) 05/12/2014 0948 EST Body Mass Index 37.95 05/12/2014 0948 EST documented in this encounter [...] 05/12/2014 documented as of this encounter Discharge Summaries * Lilibeth Ontiveros MD - 05/12/2014 1353 EST Discharge Summary 1 Patient Stamp Box Department of [facility] [employer] [facility] MATERNAL DISCHARGE SUMMARY . . Maternal Name: Hilda Crowley : 1975 Attending: Admission: 05/12/2014 Discharge: 05/16/2014 Reason for Admission: Routine NST monitoring for T2DM and CHTN 38 y/o 4 para 2011 at 36+2/7 weeks gestation. Dale. PAST HISTORY: Disorders diagnosed prior to current Medical Chronic Hypertension; Class: B Non-Insulin Dependent Diabetes; Asthma; Psychiatric: Depression, Suicide attempt Comments: hyperliipidemia, tonsillectomy, hip arthroscopy Gynecological Sexually Transmitted Diseases: None; Comments: PCOS Obstetrical Prior Section: 2; Upper Segment or T Incision; Gestational Diabetes: Diet + Insulin Comments: G2 - 1998 - LTCS G3 - 2007 - LTCS CURRENT HISTORY (HPI): Disorders diagnosed during current Medical Substance Abuse: None; Smoking: Continued In ; Sexually Transmitted Diseases: None Obstetrical None : Rupture of Membranes: 34 - 36 6/7 weeks Medications during current Labetalol, Ranitidine Comments: flexeril, focalin, seroquel, gabapentin, lantus, aspart Maternal Labs: A-; Antibody screen: Neg; Rubella titer: Immune; Syphilis Screening: Neg; Gonorrhea Screening: Neg; Chlamydia Screening: Neg; Hepatitis B screen: Neg; Hepatitis C screen: Not Done; HIV: Neg LABOR INFORMATION Labor Onset: None - C/S without labor; Delivery Indication: PROM GBS Status: Negative; GBS Prophylaxis: None Labor Analgesia: None; Labor & Delivery Medications: Antibiotics for section prophylaxis, Post Oxytocin Breech Continuous External FHRM; Abnormal FHR Patterns: Intermittent Moderate Variables, Amniotic Fluid Color: Clear; Duration Rupture of Membranes: <12 Comments: The patient was recieving her routine NST and intermittent variable decelerations were noted. While receiving extended monitoring, she had PPROM @ 36+2. A repeat section and bilateral tubal ligation was then performed. Discharge Summary 2 Patient Stamp Box Department of [facility] [employer] [facility] MATERNAL DISCHARGE SUMMARY . . DELIVERY INFORMATION Section Delivery; Type of Section: Lower Segment Transverse Major Indication: Elective Repeat Provider Recommendation; Delivery / Repair Anesthesia: Spinal; EBL: 500-1000 Placenta: Delivery Method: Spontaneous; Configuration: Normal; Placenta To Pathology Labor and Delivery Complications and/or Procedures: None INFORMATION Weight: 3487 grams Sex: Female Delivery Date: 05/12/2014 Delivery Time: 0832 Apgars: 51 , 75 : , the patient met all post-surgical goals. However, her blood glucose controlremained suboptimal. Endocrine was consulted and recommended metformin and januvia and plan to follow-up with her in 6 weeks at her visit. Regarding her CHTN, pressures remained normal on labetalol 100mg BID. Additional Comments: none Diet Activity: regular, as tolerated, nothing per vagina X 6 weeks Discharge Medications / Dosage: tylenol, ibuprofen, colace, labetalol, metformin, januvia Other Problems / Discharge Diagnoses Follow-Up Plan for each Problem: Contraception discussed, [facility]iscuss at [facility]. Pt verbalized understanding of S/Sx of post- depression and plan if sx occur. Condition at Discharge: good Discharge Disposition: [X] Home documented in this encounter Medications at Time [...] for Pain. 30 Tab 0 05/16/2014 06/01/2014 multivitamin vit-iron fumarate-FA (STUARTNATAL) 27 mg iron- 1 mg tablet tablet Take 1 Tab by mouth daily. 90 Tab 2 12/31/2013 11/14/2015 QUEtiapine (SEROQUEL) 200 mg tablet Take 200 mg by mouth 2 times daily. Reported on 04/30/2016 04/30/2016 documented as of this encounter Ordered Prescriptions Prescription Sig Dispensed Refills Start Date End Da te metFORMIN (GLUCOPHAGE) 1,000 mg tablet Take 1 Tab by mouth 2 times daily with breakfast and dinner. 60 Tab 2 05/16/2014 labetalol (NORMODYNE) 200 mg tablet Take 1 Tab by mouth every 12 hours. 60 Tab 1 05/16/2014 ibuprofen (MOTRIN) 400 mg tablet Take 1 Tab by mouth every 4 hours as needed for Pain. 05/16/2014 glyBURIDE (DIABETA) 5 mg tablet Take 1 Tab by mouth daily. 30 Tab 1 05/16/2014 11/14/2015 glimepiride (AMARYL) 4 mg tablet Take 1 Tab by mouth daily. 30 Tab 1 05/16/2014 05/16/2014 HYDROmorphone (DILAUDID) 2 mg tablet Take 1-3 Tabs by mouth every 4 hours as needed for Pain. 30 Tab 0 05/16/2014 06/01/2014 acetaminophen (TYLENOL) 325 mg tablet Take 1-2 Tabs by mouth every 4 hours as needed for Pain. 05/16/2014 10/21/2020 documented in this encounter Discharge Disposition Disposition Code Departure Means Destination Home or Self Care documented in this encounter Progress Notes * Mónica Dominguez MD - 05/16/2014 0957 EST Endocrine Inpatient Consult Note Admit Date: 05/12/2014 Date of Service: 05/16/2014 Requesting Physician: Dr. Kristi Leblanc Specialty Completing Consult: Endocrinology Reason for Consult: Management of glucoses post- HPI:(include onset,location,quality,severity, duration, timing, associating symptoms) This woman who just delivered her third child is seen for glycemic management. The team was discussing inducing labor due to poor movement, when her water broke. She then underwent a (due to hx of this). The baby is in the NICU, having had hypoglycemia at . She states that she has had diabetes type 2 and PCOS and was on orals (metformin and glyburide) for most of the until week 32. 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 She reports that her glucoses can be 25 or 325. Prior to insulin she was metformin and glyburide. She is not seen in the endocrine clinic; her primary care is Dr. Bhargav Padron. She reports that she took an insulin overdose in 2013, and has undergone counseling for this. She has not been adherent at checking her FS, keeping a diary or bringing in a glucometer to reviewreadings during the per charts. Prior to on Metformin only. Started Metformin and Sitagliptin last 2 days. Called by team as FBS high every day. Nursing reports that she snacks a great deal at night. Went to talk to Hilda and we discussed pros and cons of using present therapy versus sulfonylurea and metformin. She tells me that she thinks she is having an adverse effect to the Sitagliptin--fluidretention and would be more comfortable on ESPOSITO. Results for TED HILDA Jeevan ( ) as of 05/12/2014 12:38 Ref. Range 04/30/2012 09:37 04/14/2013 11:31 10/06/2013 14:56 02/22/2014 14:55 04/16/2014 12:02 Hemoglobin A1C No range found 7.9 7.5 7.4 5.8 7.0 PMH PSH Past Medical History Diagnosis Date [...] section 1998,2008 times 2 ??? Hip arthroscopy 2013 Social History Family History History Substance Use [...] Medication Route Frequency ??? acetaminophen (TYLENOL) tablet 325-650 mg oral Q4H PRN ??? bisacodyl (DULCOLAX) suppository 10 mg rectal Daily PRN ??? calcium carbonate (TUMS) 200 mg calcium (500 mg) per chewable tablet tablet,chewable 1-2 Tab oral Q2H PRN ??? cyclobenzaprine (FLEXERIL) tablet 10 mg oral DAILY BEFORE BREAKFAST ??? cyclobenzaprine (FLEXERIL) tablet 20 mg oral QHS ??? dexmethylphenidate (FOCALIN XR) multiphase capsule capsule,ER biphasic 50-50 10 mg oral TID ??? dextrose 50 % solution 12.5 g intravenous PRN ??? docusate sodium (COLACE) capsule 100 mg oral BID PRN ??? gabapentin (NEURONTIN) capsule 1,500 mg oral QHS ??? glucagon (human recombinant) injection 1 mg intramuscular PRN ??? HYDROmorphone (DILAUDID) tablet 2-6 mg oral Q4H PRN ??? HYDROmorphone (PF) (DILAUDID) 1 mg/mL injection 0.2-0.6 mg intravenous Q4H PRN ??? ibuprofen (MOTRIN) tablet 400 mg oral Q4H PRN ??? insulin aspart (NOVOLOG FLEXPEN) injection subcutaneous TID WC ??? labetalol (NORMODYNE) tablet 200 mg oral Q12H ??? lansinoh HPA lanolin topical PRN ??? magnesium hydroxide (MILK OF MAGNESIA) 400 mg/5 mL suspension 30 mL oral AT BEDTIME PRN ??? metFORMIN (GLUCOPHAGE) tablet 1,000 mg oral BID (BREAKFAST/DINNER) ??? multivitamin vit-iron fumarate-FA (STUARTNATAL) 27 mg iron- 1 mg tablet 1 Tab oral DAILY ??? ondansetron (PF) (ZOFRAN) injection 2-4 mg intravenous Q6H PRN ??? QUEtiapine (SEROQUEL) tablet 200 mg oral QHS ??? sitaGLIPtin (JANUVIA) tablet 100 mg oral DAILY Allergies No Known Allergies Review of Systems: Pertinent items are noted in Subjective/HPI Denies nausea or anorexia now Objective/Physical Exam: VS: BP 128/58 Pulse 105 Temp(Src) 36.2 ??C (97.2 ??F) (Temporal) Resp 18 Ht 154 cm (60.63) Wt 90 kg (198 lb 6.6 oz) BMI 37.95 kg/m2 SpO2 100% LMP 08/31/2013 Exam: Walking in room. Anticipating discharge. Data Review: I have independently visualized the Labs: Recent Labs 05/13/14 1301 05/13/14 2140 05/14/14 0016 05/14/14 0646 05/14/14 1356 05/14/14 2134 05/15/14 05/15/14 0624 05/15/14 1254 05/15/14 1913 05/16/14 0101 05/16/14 0742 GLUCOSEFINGE 219* 157* 259* 202* 125* 148* 201* 218* 149* 115* 171* 238* Lab Results Component Value Date WBC 19.21* 05/13/2014 RBC 3.79* 05/13/2014 HGB 12.1 05/13/2014 HCT 35.2 05/13/2014 MCV 93 05/13/2014 MCH 31.8 05/13/2014 MCHC 34.2 05/13/2014 PLT 295 05/13/2014 NEUTROABS 13.03* 04/23/2014 SEDRATE 10 07/13/2010 Lab Results Component Value Date SERGLU 87 05/08/2014 NA 134* 12/31/2013 K 3.5 12/31/2013 CL 102 12/31/2013 CO2 18* 12/31/2013 BUN 7* 04/23/2014 CREATININE 0.58 04/30/2014 CALCIUM 9.5 04/14/2013 CALCGFR >60 04/30/2014 ALKPHOS 71 04/14/2013 TBIL 0.5 04/14/2013 AST 25 04/30/2014 ALT 27 04/30/2014 LABALBU 4.5 04/14/2013 TP 6.9 04/14/2013 Assessment: Her glucoses are at goal during the day, but increase after supper and bedtime. Sitagliptin will have no effect on hyperglycemia that is fasting, although according to nursing this is dueto dietary choices. Pt endorses that she is more comfortable on older medications. Recommendations: 1) Can d/c on Metformin 2) Stop Sitagliptin. 3) Start Glyburide 5 mg/d if breast-feeding--not sure if doing this or not. If not and any concern about lows could change as outpatient to Glimepiride. 4) F/up as outpatient with usual team or [facility] in 3-6 wks. Stop insulin Mónica Dominguez MD 05/16/2014 9:57 * Mónica Dominguez MD - 05/16/2014 0947 EST Endocrine Inpatient Consult Note Admit Date: 05/12/2014 Date of Service: 05/16/2014 Requesting Physician: Dr. Kristi Leblanc Specialty Completing Consult: Endocrinology Reason for Consult: Management of glucoses post- HPI:(include onset,location,quality,severity, duration, timing, associating symptoms) This woman who just delivered her third child is seen for glycemic management. The team was discussing inducing labor due to poor movement, when her water broke. She then underwent a (due to hx of this). The baby is in the NICU, having had hypoglycemia at . She states that she has had diabetes type 2 and PCOS and was on orals (metformin and glyburide) for most of the until week 32. 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 She reports that her glucoses can be 25 or 325. Prior to insulin she was metformin and glyburide. She is not seen in the endocrine clinic; her primary care is Dr. Bhargav Padron. She reports that she took an insulin overdose in 2013, and has undergone counseling for this. She has not been adherent at checking her FS, keeping a diary or bringing in a glucometer to reviewreadings during the per charts. Prior to on Metformin only. Started Metformin and Sitagliptin last 2 days. Called by team as FBS high every day. Nursing reports that she snacks a great deal at night. Went to talk to Hilda and we discussed pros and cons of using present therapy versus sulfonylurea and metformin. She tells me that she thinks she is having an adverse effect to the Sitagliptin--fluidretention and would be more comfortable on ESPOSITO. Results for HILDA CROWLEY ( ) as of 05/12/2014 12:38 Ref. Range 04/30/2012 09:37 04/14/2013 11:31 10/06/2013 14:56 02/22/2014 14:55 04/16/2014 12:02 Hemoglobin A1C No range found 7.9 7.5 7.4 5.8 7.0 PMH PSH Past Medical History Diagnosis Date [...] section 1998,2008 times 2 ??? Hip arthroscopy 2013 Social History Family History History Substance Use [...] Medication Route Frequency ??? acetaminophen (TYLENOL) tablet 325-650 mg oral Q4H PRN ??? bisacodyl (DULCOLAX) suppository 10 mg rectal Daily PRN ??? calcium carbonate (TUMS) 200 mg calcium (500 mg) per chewable tablet tablet,chewable 1-2 Tab oral Q2H PRN ??? cyclobenzaprine (FLEXERIL) tablet 10 mg oral DAILY BEFORE BREAKFAST ??? cyclobenzaprine (FLEXERIL) tablet 20 mg oral QHS ??? dexmethylphenidate (FOCALIN XR) multiphase capsule capsule,ER biphasic 50-50 10 mg oral TID ??? dextrose 50 % solution 12.5 g intravenous PRN ??? docusate sodium (COLACE) capsule 100 mg oral BID PRN ??? gabapentin (NEURONTIN) capsule 1,500 mg oral QHS ??? glucagon (human recombinant) injection 1 mg intramuscular PRN ??? HYDROmorphone (DILAUDID) tablet 2-6 mg oral Q4H PRN ??? HYDROmorphone (PF) (DILAUDID) 1 mg/mL injection 0.2-0.6 mg intravenous Q4H PRN ??? ibuprofen (MOTRIN) tablet 400 mg oral Q4H PRN ??? insulin aspart (NOVOLOG FLEXPEN) injection subcutaneous TID WC ??? labetalol (NORMODYNE) tablet 200 mg oral Q12H ??? lansinoh HPA lanolin topical PRN ??? magnesium hydroxide (MILK OF MAGNESIA) 400 mg/5 mL suspension 30 mL oral AT BEDTIME PRN ??? metFORMIN (GLUCOPHAGE) tablet 1,000 mg oral BID (BREAKFAST/DINNER) ??? multivitamin vit-iron fumarate-FA (STUARTNATAL) 27 mg iron- 1 mg tablet 1 Tab oral DAILY ??? ondansetron (PF) (ZOFRAN) injection 2-4 mg intravenous Q6H PRN ??? QUEtiapine (SEROQUEL) tablet 200 mg oral QHS ??? sitaGLIPtin (JANUVIA) tablet 100 mg oral DAILY Allergies No Known Allergies Review of Systems: Pertinent items are noted in Subjective/HPI Denies nausea or anorexia now Objective/Physical Exam: VS: BP 128/58 Pulse 105 Temp(Src) 36.2 ??C (97.2 ??F) (Temporal) Resp 18 Ht 154 cm (60.63) Wt 90 kg (198 lb 6.6 oz) BMI 37.95 kg/m2 SpO2 100% LMP 08/31/2013 Exam: Walking in room. Anticipating discharge. Data Review: I have independently visualized the Labs: Recent Labs 05/13/14 1301 05/13/14 2140 05/14/14 0016 05/14/14 0646 05/14/14 1356 05/14/14 2134 05/15/14 05/15/14 0624 05/15/14 1254 05/15/14 1913 05/16/14 0101 05/16/14 0742 GLUCOSEFINGE 219* 157* 259* 202* 125* 148* 201* 218* 149* 115* 171* 238* Lab Results Component Value Date WBC 19.21* 05/13/2014 RBC 3.79* 05/13/2014 HGB 12.1 05/13/2014 HCT 35.2 05/13/2014 MCV 93 05/13/2014 MCH 31.8 05/13/2014 MCHC 34.2 05/13/2014 PLT 295 05/13/2014 NEUTROABS 13.03* 04/23/2014 SEDRATE 10 07/13/2010 Lab Results Component Value Date SERGLU 87 05/08/2014 NA 134* 12/31/2013 K 3.5 12/31/2013 CL 102 12/31/2013 CO2 18* 12/31/2013 BUN 7* 04/23/2014 CREATININE 0.58 04/30/2014 CALCIUM 9.5 04/14/2013 CALCGFR >60 04/30/2014 ALKPHOS 71 04/14/2013 TBIL 0.5 04/14/2013 AST 25 04/30/2014 ALT 27 04/30/2014 LABALBU 4.5 04/14/2013 TP 6.9 04/14/2013 Assessment: Her glucoses are at goal during the day, but increase after supper and bedtime. Sitagliptin will have no effect on hyperglycemia that is fasting, although according to nursing this is dueto dietary choices. Pt endorses that she is more comfortable on older medications. Recommendations: 1) Can d/c on Metformin 2) Stop Sitagliptin. 3) Start Glimepiride at 4 mg/d as FBS > 200. 4) F/up as outpatient with usual team or [facility] in 3-6 wks. Stop insulin Mónica Dominguez MD 05/16/2014 9:47 * Svitlana Sinhg MD - 05/16/2014 0839 EST Postoperative Progress Note CC: POD#4 s/p repeat LTCS and BTL 24hr events: Hyperglycemia requiring aspart SS, metformin and januvia S: Deferred. Pt sleeping. O: BP 118/56 Pulse 105 Temp(Src) 36 ??C (96.8 ??F) (Temporal) Resp 20 Ht 154 cm (60.63) Wt 90 kg (198 lb 6.6 oz) BMI 37.95 kg/m2 SpO2 99% LMP 08/31/2013 No intake or output data in the 24 hours ending 05/16/14 0839 Exam deferred, pt sleeping Recent Labs 05/14/14 1356 05/14/14 2134 05/15/14 05/15/14 0624 05/15/14 1254 05/15/14 1913 05/16/14 0101 05/16/14 0742 GLUCOSEFINGE 125* 148* 201* 218* 149* 115* 171* 238* A/P: Hilda Crowley is a 38 y.o. POD#4 s/p repeat LTCS and BTL at 36w2d for PPROM and NRFA with c/b by CHTN and T2DM . Pt recovering well, AVSS and adequate UOP. *Continue routine post-op/post- care. *T2DM: Endocrine consulting. Although pt has suboptimal glucose control, they would like to discharge on metformin and januvia only. Insulin is being avoided due to a h/o suicide attempt with it. *CHTN: Normotensive. Pt's labetalol 100mg BID has intermittently been held due to low blood pressures. *Depression/ADHD: Continue Seroquel, focalin and gabapentin. *Continue current pain regimen. *Encourage IS, ambulation, PO intake; support BF. *HCT 37-->35, appropriate *Likely d/c home today Lilibeth Ontiveros MD 05/16/2014 8:39 Attestation statement: I saw and examined the patient with the resident/fellow. I agree with the findings and plan of care documented in the resident's/fellow's note. Seen by Dr Dominguez today, plan tod/c on PO meds only. Baby may be coming out of NICU and to [facility] today. Plan for d/c today (possibly to [place], depending on baby status). Discussed outpatient management of glucose control with Endocrine. Discussed OB follow up. Svitlana Singh MD * Dandy Aceves MD - 05/15/2014 0659 EST Postoperative Progress Note CC: POD#3 s/p repeat LTCS and BTL 24hr events: Hyperglycemia requiring aspart SS. S: Doing well overall with adequately controlled pain. She has been ambulating, tolerating a regular diet. +Flatus. Lochia is wnl. The patient denies CP/SOB/N/V/TIDWELL/Dizziness/F/C/LE pain. O: BP 109/57 Pulse 105 Temp(Src) 36.6 ??C (97.9 ??F) (Temporal) Resp 18 Ht 154 cm (60.63) Wt 90 kg (198 lb 6.6 oz) BMI 37.95 kg/m2 SpO2 100% LMP 08/31/2013 No intake or output data in the 24 hours ending 05/15/14 0659 GEN NAD CV RRR LUNGS CTAB ABD soft, NT, incision C/D/I w suture EXT WWP, NT Recent Labs 05/13/14 1301 05/13/14 2140 05/14/14 0016 05/14/14 0646 05/14/14 1356 05/14/14 2134 05/15/14 05/15/14 0624 GLUCOSEFINGE 219* 157* 259* 202* 125* 148* 201* 218* A/P: Hilda Crowley is a 38 y.o. POD#3 s/p repeat LTCS and BTL at 36w2d for PPROM and NRFA with c/b by CHTN and T2DM . Pt recovering well, AVSS and adequate UOP. *Continue routine post-op/post- care. *T2DM: Endocrine consulting, appreciate continued assistance. Currently on metformin and januvia. Endocrine consulting appreciate recs. Last two FS in the 200s. Covering w ISS. Will call endocrine this am. *CHTN: Normotensive. Pt's labetalol 100mg BID has been held due to low blood pressures. *Depression: Continue Seroquel and gabapentin. *Continue current pain regimen. *Encourage IS, ambulation, PO intake; support BF. *HCT 37-->35, appropriate *Likely d/c home POD #4 Hayley Stewart MD 05/15/2014 6:59 Patient seen and evaluated. As per above, this patient is a multip, now day 3 post repeat . She is recovering well but has suboptimal glucose control. We will discuss treatment modificationswith endocrine service today. Patient may be ready for discharge tomorrow. * Mónica Dominguez MD - 05/14/2014 1322 EST Called to discuss considering adding another agent as BS were poorly controlled in house. I have recommended they try adding Januvia 100 mg OD in addition with the metformin 1000 mg BID to see if there would be any improvement in BS and will have check BS QID at home and bring it to us when she comes back for follow up in 1 mth at our clinic.If she does not have a follow up kindly make sure she does with any of our providers at Endocrine. Attestation: Supervising Physician I discussed this with Dr. Gonzales and in fact this was in my previous note. Will see if in-house tomorrow. Mónica Dominguez MD 05/14/2014 18:10 * Sandra Valenzuela - 05/14/2014 1020 EST Brief Case Management Assessment & Initial Discharge Plan Reason for Hospitalization: female infant born by emergent repeat caesarian due to PPROM to a mother with poorly controlled T2DM, currently at a corrected gestational age of 36w3d. Admitted to NICU for management of hypoglycemia. Current Living Arrangements: Michael live in [place]; Hilda has two other children who are 15 and 6 yo. Randal also has children from a previous relationship. Current Social, Health Care and Community Supports: This couple reports some support from family and friends. Covered by [place] Medicaid and receiving WIC. Mom works here at [employer]. Identified Case Management/Social Work Needs and Issues (housing, care, financial, transportation, cultural, spiritual, emotional, legal, etc.): Support. Case Management Actions (completed and planned): Talked with parents about their plan if baby remains in NICU at time of mom's discharge, they will discharge home and travel in daily. They are aware of parking validation for duration of Ansley's stay. Bottle feeding so does not need a pump prescription. DISCHARGE RISK ASSESSMENT: Total # selected above: none Tentative plan to address the risk of re-hospitalization for those at HIGH or MODERATE RISK: low risk INITIAL TRANSITION PLAN: Transportation from hospital in place? , Family has a car. Post hospitalization Plan: Mom and baby to discharge home when medically stable. New DME Requirements: None required. Initial plan discussed with: Parents, Hilda and Randal. Will continue to follow. MARIEL Salinas #[id number] * Kristi Leblanc MD - 05/14/2014 0639 EST Postoperative Progress Note CC: POD#2 s/p repeat LTCS and BTL 24hr events: Hyperglycemia requiring aspart SS. S: Doing well overall with adequately controlled pain. She has been ambulating, tolerating a regular diet and pumping for baby in the NICU. +Flatus. Lochia is wnl. The patient denies CP/SOB/N/V/TIDWELL/Dizziness/F/C/LE pain. O: BP 118/58 Pulse 96 Temp(Src) 36.5 ??C (97.7 ??F) (Temporal) Resp 18 Ht 154 cm (60.63) Wt 90 kg (198 lb 6.6 oz) BMI 37.95 kg/m2 SpO2 98% LMP 08/31/2013 Intake/Output Summary (Last 24 hours) at 05/14/14 0639 Last data filed at 05/13/14 1100 Gross per 24 hour Intake 600 ml Output 500 ml Net 100 ml Exam deferred. Pt walking off the unit. B-259 A/P: Hilda Crowley is a 38 y.o. POD#2 s/p repeat LTCS and BTL at 36w2d for PPROM and NRFA with c/b by CHTN and T2DM . Pt recovering well, AVSS and adequate UOP. *Continue routine post-op/post- care. *T2DM: Endocrine consulting, appreciate continued assistance. Pt was restarted on metformin 1000mg BID and SSI with continued suboptimal control. Planning to avoid insulin in this patient as she has a h/o a suicide attempt with an insulin overdose. *CHTN: Normotensive. Pt's labetalol 100mg BID has been held due to low blood pressures. *Depression: Continue Seroquel and gabapentin. *Continue current pain regimen. *Encourage IS, ambulation, PO intake; support BF. *Pre-op HCT 37.0, EBL 750cc, POD#1 Hct 35.2 --> appropriate and expected *Likely d/c home POD #4 Lilibeth Ontiveros MD 05/14/2014 6:39 MFM ATTG Pt seen and evaluated. I agree with fplan as described above. Will discuss with endo re: optimal poregimen for glycemic control. Kristi Leblanc MD * Ana Pacheco - 05/13/2014 0835 EST Endocrine Service Progress Note Admit Date: 05/12/2014 Hospital Day: LOS: 1 day Date of Service: 05/13/2014 Chief Complaint: Management of BG post- Diabetes history: - onset - 20 years of age - home regimen: Metformin + Glipizide 24-Hour Events: - with BTL - Was restarted on Metformin 1000 mg BID + SSI Subjective: Patient reports having had one episode of emesis after dinner last night. This morning she reports having good appetite. She tolerated breakfast. Reports having flatus. Ambulating. Review of Systems: Denies any nausea, vomiting, chest pain or palpitations. Current Facility-Administered Medications Medication Route Frequency ??? acetaminophen (TYLENOL) tablet 325-650 mg oral Q4H ??? [START ON 05/14/2014] acetaminophen (TYLENOL) tablet 325-650 mg oral Q4H PRN ??? bisacodyl (DULCOLAX) suppository 10 mg rectal Daily PRN ??? calcium carbonate (TUMS) 200 mg calcium (500 mg) per chewable tablet tablet,chewable 1-2 Tab oral Q2H PRN ??? cyclobenzaprine (FLEXERIL) tablet 10 mg oral DAILY BEFORE BREAKFAST ??? cyclobenzaprine (FLEXERIL) tablet 20 mg oral QHS ??? dextrose 5 % and 0.45 % NaCl with KCl 20 mEq/L infusion intravenous CONTINUOUS ??? dextrose 50 % solution 12.5 g intravenous PRN ??? docusate sodium (COLACE) capsule 100 mg oral BID PRN ??? gabapentin (NEURONTIN) capsule 1,500 mg oral DAILY ??? glucagon (human recombinant) injection 1 mg intramuscular PRN ??? HYDROmorphone (DILAUDID) tablet 2-6 mg oral Q4H PRN ??? HYDROmorphone (PF) (DILAUDID) 1 mg/mL injection 0.2-0.6 mg intravenous Q4H PRN ??? ibuprofen (MOTRIN) tablet 400 mg oral Q4H ??? [START ON 05/14/2014] ibuprofen (MOTRIN) tablet 400 mg oral Q4H PRN ??? insulin aspart (NOVOLOG FLEXPEN) injection subcutaneous TID WC ??? labetalol (NORMODYNE) tablet 200 mg oral Q12H ??? lactated ringers (LR) infusion intravenous CONTINUOUS ??? lansinoh HPA lanolin topical PRN ??? magnesium hydroxide (MILK OF MAGNESIA) 400 mg/5 mL suspension 30 mL oral AT BEDTIME PRN ??? metFORMIN (GLUCOPHAGE) tablet 1,000 mg oral BID (BREAKFAST/DINNER) ??? multivitamin vit-iron fumarate-FA (STUARTNATAL) 27 mg iron- 1 mg tablet 1 Tab oral DAILY ??? ondansetron (PF) (ZOFRAN) injection 2-4 mg intravenous Q6H PRN ??? QUEtiapine (SEROQUEL) tablet 200 mg oral BID Objective: Physical Exam: BP 115/58 Pulse 96 Temp(Src) 36 ??C (96.8 ??F) (Temporal) Resp 20 Ht 154 cm (60.63) Wt 90 kg (198 lb 6.6 oz) BMI 37.95 kg/m2 SpO2 97% LMP 08/31/2013 Intake/Output Summary (Last 24 hours) at 05/13/14 0835 Last data filed at 05/12/14 1830 Gross per 24 hour Intake 4450 ml Output 2425 ml Net 2025 ml General: Patient is non-toxic in no acute distress HEENT: Normocephalic/Atraumatic, MMM, Conjunctiva nonicteric Respiratory: CTAB Cardiac: RRR, normal S1 & S2, no murmurs, rubs or gallops Abdomen: Non-distended, positive bowel sounds, soft, appropriately tender Dermatologic: skin warm and dry Neurologic: moving all limbs spontaneously Psychiatric: Alert and oriented, answers questions easily and appropriately, Laboratory: CBC: Recent Labs 05/12/14 0630 05/12/14 0840 05/13/14 0721 WBC Clotted 18.81* 19.21* HGB Clotted 12.6 12.1 HCT Clotted 37.0 35.2 MCV Clotted 93 93 PLT Clotted 291 295 FSBS: Recent Labs 05/12/14 0514 05/12/14 0713 05/12/14 1112 05/12/14 1326 05/12/14 2053 05/12/14 2349 05/13/14 0712 GLUCOSEFINGE 127* 114* 143* 104* 148* 170* 150* Radiology: No new studies Assessment & Plan by Problems: Impression: Hilda Crowley is a 38 y.o. with multiple health issues including history of PCOS and t2 DM who was recently admitted to L&D floor for monitoring followed by a andBTL. She was transitioned to Metformin yesterday. She has been tolerating her new regimen well. HerBG has mostly been in the desirable range. Recommendations: 1. Discontinue current sliding scale insulin 2. Continue Metformin at 1000 mg BID; addition of 2d agent may be necessary 3. BG checks qd alternating before meals and before bedtime 4. Outpatient f/u 5. BG goals: 80-150 mg/dl It has been a great pleasure to participate in Mrs. Crowley's care. Ana Pacheco, MS- Pager [phone] 05/13/2014 8:35 * Khalida Quiñones MD - 05/13/2014 0640 EST Postoperative Progress Note CC: POD#1 s/p repeat LTCS and BTL S: Doing well overall with adequately controlled pain. She has been ambulating, tolerating a regular diet and pumping for baby in the NICU. +Flatus. The patient denies CP/SOB/N/V/TIDWELL/Dizziness/F/C/LE pain. O: BP 103/51 Pulse 96 Temp(Src) 36.4 ??C (97.5 ??F) (Temporal) Resp 20 Ht 154 cm (60.63) Wt 90 kg (198 lb 6.6 oz) BMI 37.95 kg/m2 SpO2 96% LMP 08/31/2013 Intake/Output Summary (Last 24 hours) at 05/13/14 0640 Last data filed at 05/12/14 1830 Gross per 24 hour Intake 4950 ml Output 2975 ml Net 1975 ml Gen: NAD Resp: CTAB CV: RRR Abd: +BS, soft, nondistended, appropriately tender to palpation, fundus firm @ the umbilicus, dressing clean/dry/intact Ext: WWP, 2+DPs, 1+ PE bilat Ref. Range 05/12/2014 20:53 05/12/2014 23:49 Glucose, Fingerstick Latest Range: 70-100 mg/dl 148 (H) 170 (H) A/P: Hilda Crowley is a 38 y.o. POD#1 s/p repeat LTCS and BTL at 36w2d for PPROM and NRFA with c/b by CHTN and T2DM . Pt recovering well, AVSS and adequate UOP. *Continue routine post-op/post- care. *T2DM: Endocrine consulting, appreciate continued assistance. Pt was restarted on metformin 1000mg BID and SSI with suboptimal BG control yesterday evening. *CHTN: Normotensive on labetalol 100mg BID this PM. *Depression: Continue Seroquel and gabapentin. Will discuss PP depression. *Continue current pain regimen. *Encourage IS, ambulation, PO intake; support BF. *Pre-op HCT 37.0, EBL 750cc, f/u on AM CBC today *Likely d/c home POD #4 Lilibeth Ontiveros MD 05/13/2014 6:40 MFMS / OB Attending : I saw and evaluated the patient and discussed findings with the residents . I agree with the above assessment and plan of care. Khalida Quiñones MD , 05/13/2014, 9:51 * Frank Maier - 05/12/2014 1435 EST Medical Student Note Hilda Crowley 38 y.o. female CC: IUP @ 36w2d with h/o T2DM and chronic HTN s/p repeat LTCS with BTL after SROM at 0727 S: Pt is okay. She has sharp constant pain at her incision site 6/10 pain. She just received her pain medications. She has been able to eat and is drinking fluids. She has not passed gas, no BM. She denies any TIDWELL, lightheadedness, chest pain, SOB, or leg pain. She plans to start pumping soon for her baby in NICU. Baby will be staying in NICU for 24 hrs. O: VS: BP 127/62 Temp(Src) 36.2 ??C (97.2 ??F) (Temporal) Resp 20 Ht 154 cm (60.63) Wt 90 kg (198 lb 6.6 oz) BMI 37.95 kg/m2 SpO2 97% LMP 08/31/2013 Intake/Output Summary (Last 24 hours) at 05/12/14 1435 Last data filed at 05/12/14 1400 Gross per 24 hour Intake 4000 ml Output 1525 ml Net 2475 ml UOP: 0.22 ml/kg/hr over 5 hours Physical Exam Gen: Resting in bed, family members by side, pleasant Resp: clear to anterior, posterior auscultation bilaterally, decreased breath sounds at the bases; no rhonchi/crackles CV: RRR, +S1/S2, no murmurs appreciated Abd: soft, nondistended, very tender to palpation, +BS heard, fundus firm at the level of the umbilicus, incision clean/dry/intact. : mild lochia on pad Ext: 2+DPs, 1+ LE edema, no pain on palpation of LE A/P: Hilda Crowley is a 38 y.o. female POD#0 h/o T2DM and chronic HTN s/p LTCS with BTL after SROM at 0727 at 36w2d, VS WNL, inadequate UOP likely due to pitocin and hypovolemia. *Inadequate UOP: 0.22 cc/kg/hr - continue pitocin and recheck UOP; start LR fluid and bolus for hypovolemia. HR and BP normal. *Pain: uncomfortable, just received pain medications. Continue pain regimen *EBL 750, Hct 37.0 prior to surgery. 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 *Encourage sitting and potentially ambulation *D/c staton when able to ambulate to bathroom *carb consistent diet *Discharge plan: home POD#3-4 Frank Maier, MS3 [phone] * Dahiana Fisher MD - 05/12/2014 1434 EST Postoperative Progress Note CC: s/p repeat LTCS and BTL S: Doing well, pain poorly controlled, 6/10 pain. Just received pain meds. Passing flatus, no BM. Tolerating regular diet without nausea/vomiting. Has not ambulated. Staton in place. Lochia minimal. Plans to breast pump to feed baby in NICU. The patient denies CP/SOB/N/V/TIDWELL/Dizziness/F/C/LE pain. O: BP 127/62 Temp(Src) 36.2 ??C (97.2 ??F) (Temporal) Resp 20 Ht 154 cm (60.63) Wt 90 kg (198 lb 6.6 oz) BMI 37.95 kg/m2 SpO2 97% LMP 08/31/2013 Intake/Output Summary (Last 24 hours) at 05/12/14 1434 Last data filed at 05/12/14 1400 Gross per 24 hour Intake 4000 ml Output 1525 ml Net 2475 ml UOP: 100 cc alyse urine/5 hrs Gen: NAD Resp: CTAB CV: RRR Abd: +BS, soft, nondistended, appropriately tender to palpation, fundus firm @ the umbilicus, dressing clean/dry/intact without oozing or drainage. Ext: WWP, 2+DPs, 1+ PE bilat A/P: Hilda Crowley is a 38 y.o. POD#0 s/p repeat LTCS and BTL at 36w2d for PPROM and NRFA with c/b by CHTN and T3DM . Pt recovering well, AVSS and adequate UOP. *Continue routine post-op/post- care. *Low UOP: 20cc/hr. Will complete pitocin in 1 hour and will likely have improved UOP at that time. RN to start LR per protocol. Holding on fluid bolus at this time and will reassess UOP. Vital signs stable, benign abdominal exam. *T2DM: Restart metformin 1000mg BID and SSI. FS 104 postop. *CHTN: Restart labetalol 100mg BID this PM. Currently normotensive. *Depression: Continue Seroquel and gabapentin *Continue current pain regimen. *Encourage IS, ambulation, PO intake; support BF. *D/C [place] with ambulation *EBL 750, HCT 37.0--> AM cbc *Likely d/c home POD 3/4 Dahiana Fisher MD 05/12/2014 14:34 * Palmira Martinez RN - 05/12/2014 1125 EST 0720- Care assumed Radha Martinez RN. Pt on CEFM, with LR bolusing for tachycardia. Plan to continuously monitor for several hours. 0727- SROM for large amount of clear fluid. Dr Quiñones in room. 0729- Variable noted down to 90bpm. Anesthesia in room to discuss anesthesia procedure. 0735- Pt consented for C/S; plan to move toward C/S delivery. 1015- Return to room 8 for PACU care. * Khalida Quiñones MD - 05/12/2014 0738 EST L&D Progress Note CC: nonreactive NST S: Pt just had a gush of fluid. No fevers, chills, SOB, CP, URI sx, N/V/D, sick contacts. No ctx, VB. O: BP 130/67 Temp(Src) 35.3 ??C (95.5 ??F) (Tympanic) Resp 18 LMP 08/31/2013 SSE: upon opening the speculum, gross pooling of clear fluid actively coming out the speculum SVE: deferred FHT: BL 150, mod variability, no accels, intermittent variables [place]: now q1.5-2 A/P: Hilda Crowley is a 38 y.o. @ 36w2d with CHTN, T2DM and now PPROM. -Will proceed with repeat c/s with BTL Lilibeth Ontiveros MD 05/12/2014 7:42 MFMS / OB Attending : I saw and evaluated the patient and discussed findings with the residents . I agree with the above assessment and plan of care. Khalida Quiñones MD , 05/12/2014, 9:35 * Carolin Cardenas RN - 05/12/2014 0503 EST 0500. Pt here for scheduled NST. In room 3. Monitors on. No TIDWELL, no vision changes. + FM, no ROM, nobleeding. 0515. Dr. Adamaid in to see pt. Periods of minimal variability. Pt encouraged to orally hydrate. 0600. Pt having occasional decels. Attempt to start IV x1 unsuccessful. IV team paged to assess. NPO status explained to pt and pt verbalized understanding. 0610. Pt up to void. 0620. IV nurse present 0365. RL bolus started. 0645. Pt sleeping 0715. Report given to Radha Blanco RN and care transferred. documented in this encounter H&P Notes * Ana Pacheco - 05/12/2014 1200 EST Endocrine Consult Note Admit Date: Date of Service: 05/12/2014 Requesting Physician: Reason for Consult: diabetes management HPI: (include onset, location, quality, severity, duration, timing, associating symptoms) Hilda Crowley is a 38 y.o. woman with multiple health issues including type 2 DM, PCOS and severe preeclampsia who was admitted to L&D floor for monitoring after spontaneous decelerations noted during NST this morning. Now, she is status post Caesarian section. The is in NICU- was hypoglycemic at . She was recently admitted (05/07/14) for extended monitoring and at that time her BG was 75 and she was continued on home regimen of glargine 30 units QHS and aspart 15 units qAC. On 05/08/14 her BG dropped to <20 mg/dL and she was treated with D5W. Patient describes being symptomatic when her BG dropped significantly that day. She took her last dose of Lantus last night (05/11/14). The patient reports being diagnosed with t2 DM at the age of 20. Her diabetes had been controlled with Metformin 1000 mg BID and glipizide up until 33 weeks of when she was started on Insulin Lantus and Aspart). While being on oral medications, she was checking her BS infrequently. She reports having a wide range of BS values while being on insuline. She sees Dr. Pineda in clinic- lastvisit on 04/23/15 (at that time she reported fasting BS in 200s and post- prandial BS in 300s). Of note, she has a history of 2 suicide attempts with insuline in the past. Review of Systems: Denies fever, chills, CP, SOB, N/V, abdominal pain, diarrhea, urinary symptoms, vision changes, lightheadedness, dizziness, headache, sensory changes Past Medical History: Past Medical History Diagnosis Date ??? Type [...] cholesterol ??? Asthma ??? Hypertension Past Surgical History: Past Surgical History Procedure Laterality Date ??? Tonsillectomy 2001 ??? Cholecystectomy 11/25/2009 Dr. Mendez ??? section 1998,2008 times 2 ??? Hip arthroscopy 2012 Medications: MAR reviewed. Current Facility-Administered Medications Medication Route Frequency ??? acetaminophen (TYLENOL) tablet 650 mg oral PRN ??? acetaminophen (TYLENOL) tablet 650 mg oral PRN ??? atropine 0.1 mg/mL syringe 0.4 mg intravenous PRN ??? carboprost (HEMABATE) 250 mcg/mL intramuscular injection ??? carboprost (HEMABATE) intramuscular injection 250 mcg intramuscular PRN ??? cellulose, oxidized 2 x 14 (SURGICEL) 2 X 14 pad pad ??? dextrose 50 % solution 12.5 g intravenous PRN ??? fentaNYL citrate (PF) 50 mcg/mL injection 25-100 mcg intravenous Q5 MINUTES PRN ??? gabapentin (NEURONTIN) capsule 1,500 mg oral DAILY ??? glucagon (human recombinant) injection 1 mg intramuscular PRN ??? HYDROmorphone (PF) (DILAUDID) 1 mg/mL injection 0.2 mg intravenous Q10 MINUTES PRN ??? ibuprofen (MOTRIN) tablet 400 mg oral PRN ??? labetalol (NORMODYNE) tablet 200 mg oral Q12H ??? lactated ringers (LR) infusion intravenous CONTINUOUS ??? methylergonovine (METHERGINE) 0.2 mg/mL (1 mL) injection ??? methylergonovine (METHERGINE) injection 200 mcg intramuscular PRN ??? misoprostol (CYTOTEC) 200 mcg tablet ??? misoprostol (CYTOTEC) tablet 200 mcg buccal PRN ??? misoprostol (CYTOTEC) tablet 800 mcg rectal PRN ??? nalOXone (NARCAN) injection 0.2 mg intravenous PRN ??? ondansetron (PF) (ZOFRAN) injection 2 mg intravenous PRN ??? oxyCODONE (ROXICODONE) immediate release tablet 5-10 mg oral PRN ??? QUEtiapine (SEROQUEL) tablet 200 mg oral BID Allergies: No Known Allergies Family History:Breast CA- maternal aunt, maternal GM, DM- Patrenal GM, paternal GF Social History: , Smokes 0.5 ppd for 2 yrs, denies drug/ alcohol use Vital Signs: BP 126/86 Temp(Src) 35.7 ??C (96.3 ??F) (Tympanic) Resp 18 Ht 154 cm (60.63) Wt 90 kg (198 lb 6.6 oz) BMI 37.95 kg/m2 LMP 08/31/2013 Exam: GA: oriented x 3; alert and cooperative HEENT : NC/AT, sclera anicteric bilaterally, conjunctiva non injected bilaterally, EOMI, MMM C/V: RRR, S1 and S2 normal, no MRG Chest: lungs CTAB Abd: soft, non-tender ,non-distended bowel sounds are present M/S : No joint swelling or erythema Extr: warm, atraumatic,no edema, 1+ pulses b/l; no edema Skin : no rashes, lesions or erythema; notable facial hair growth Neuro: moves all extremities spontaneously Data Review: Laboratory data reviewed. Pertinent positives include: Labs: FSBS: Recent Labs 05/12/14 0514 05/12/14 0713 05/12/14 1112 05/12/14 1326 GLUCOSEFINGE 127* 114* 143* 104* UA: negative for protein on and 05/12/14 Radiological Studies: none Assessment: Hilda Crowley is a 38 y.o. with multiple health issues including history of PCOS and t2 DM who was recently admitted to L&D floor for monitoring followed by a . Her BG has been in low to mid 100s range today. Since she has a history of poor BG control being on insulin and a history of 2 suicide attempts with insuline, metformin would be a bettrer option for her. Recommendations: 1. Discontinue current Lantus and Aspart regimen 2. Resume Metformin at 1000 mg BID; addition of 2d agent may be necessary 3. BG checks qd alternating before meals and before bedtime 4. Outpatient f/u 5. BG goals: 80-150 mg/dl Ana Pacheco MS- IV Pager # [phone] 05/12/2014 12:00 Iraida Quezada (Att) - 05/12/2014 0559 EST Department of Obstetrics History & Physical Admit Date: 05/12/2014 Chief Complaint: Non-reactive NST. Provider: DEXTER. Transporting Provider and Facility: None. Method of Arrival: Self HPI: Hilda Crowley is a 38 y.o. @ 36w2d by 6wk US w/ complicated by T2DM andcHTN who presents to L&D for scheduled NST for surveillance. On NST fetus had two spontaneous decels and decision ws made to admit the patient and monitor for 2-3 hours. Patient states that she's feeling well. Denies trauma, LOF, cx or VB. +FM. Took her lantus last night (35units). Review of Systems: Negative per HPI. Current Obstetrical History CHTN -Started on labetalol 200mg BID in March -04/24 24hr urine protein: 550mg T2DM -Poorly controlled -Currently on lantus 35 units QHS and aspart 15 units qAC -05/07/14 growth: EFW 3191g (89%ile) BITA 06/07/2014 by 6wk U/S c/w LMP Blood Type A neg Antibody Screen Negative. GBS Negative. Rubella Immune Varicella Protected Hep B Negative Hep C Not done. HIV Negative. RPR NR. Gonorrhea Negative Chlamydia Negative Pap Negative co testing. 1 hour GTT T2DM. Aneuploidy Testing [place] negative. CF Testing Not done. Ultrasound Date GA EFW ZHENG Anatomy Dopplers 20+0 Marginal cord insert, multiple placenta lakes in fundal placenta 05/07/14 35+4 EFW 3191g (89%ile) 19.7 Ceph, ant placenta, 12/04 BPP Past Obstetrical History G1 - 1994 [...] 1998,2008 times 2 ??? 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 1 Kit 2 ??? insulin aspart (NOVOLOG FLEXPEN) 100 unit/mL [...] 8 hrs: BP Heart Rate Resp Temp 05/12/14 0530 - - - 35.3 ??C (95.5 ??F) 05/12/14 0516 144/82 mmHg 92 BPM 18 - Gen: NAD. CV: RRR Resp: CTAB. Abd: Appropriately gravid, non tender, non distended. Neuro: 1+ DTR's (patellar) FHT: 155 baseline, mod variability, pos accels, one spontaneous decels; Cat II tracing. TOCO: Flat. SSE: Deferred. SVE: Deferred. Assessment/Problems/Plan: Hilda Crowley is a 38 y.o. @ 36w2d by 6wk US admitted for prolonged monitoring in the setting of a non-reassuring NST, T2DM and cHTN. AVSS. *FWB: EFW (89ile) at 35+4, ZHENG 19.7, ceph. echo wnl. - cEFM. Cat II FHT due to one spontaneous decel. Otherwise reassuring in the setting of moderate variability. Plan for prolonged monitoring. Consider BPP once FHT becomes reassuring. *T2DM: Followed by endocrinology. Currently on lantus 35u qHS and 15u of aspart w/ meals. 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 - Will check FS q 2hrs while NPO. *cHTN: On labetalol 200mg BID. No si/sx of preE or worsening disease. BP's currently mild range. *Global - hemorrhage risk: Low. -Rh Negative. -GBS Negative. Discussed with Yann. Cecily Jolley MD 05/12/2014 5:59 Attestation statement: I saw and examined the patient. I agree with the resident's/fellow's findings and plans as documented. 38yo at 36w2d with cHTN and poorly-controlled DM-2, admitted for extended monitoring after spontaneous decel on NST this AM. FHTs cat 2 and overall reassuring with moderate variability, but has had 2 decels to 110s from baseline of 160 lasting ~2min with some reactive tachycardia. Will monitor continuously this AM, can do BPP if FHTs improved. BP's well-controlled on labetalol. Prior 24hrurine with 550mg, but no baseline to compare to. Will check urine P:C ratio. BS suboptimally-controlled. Took home dose of lantus last night. Will check BS q2hr while on monitoring and give supplemental aspart as needed while NPO. Patient plans RLTCS/BTL--will discuss delivery timing among [facility] division this AM. Iraida Lerner MD documented in this encounter Procedure Notes * Khalida Quiñones MD - 05/12/2014 2193 EST Delivery Summary 1 Patient Stamp [facility] Department of [employer] DELIVERY SUMMARY . . Maternal Name: Hilda Crowley : 1975 38 y/o 4 para 2011 at 36+2/7 weeks gestation. [place]. LABOR INFORMATION Labor Onset: None - C/S without labor; Delivery Indication: PROM GBS Status: Negative; GBS Prophylaxis: None Labor & Delivery Medications: Antibiotics for section prophylaxis, Post Oxytocin Breech Continuous External FHRM; Abnormal FHR Patterns: Intermittent Moderate Variables Amniotic Fluid Color: Clear; Duration Rupture of Membranes: <12 Comments: The patient was recieving her routine NST and intermittent variable decelerations were noted. While receiving extended monitoring, she had PPROM @ 36+2. A repeat section and bilateral tubal ligation was then performed. DELIVERY INFORMATION Section Delivery Type of Section: Lower Segment Transverse Major Indication: Elective Repeat Provider Recommendation; Candidate: No: >2 Prior C/S; Prior C/S Scar: Intact Delivery / Repair Anesthesia: Spinal EBL: 500-1000 Placenta: Delivery Method: Spontaneous; Configuration: Normal; Placenta to pathology Labor and Delivery Complications: Procedures: Tubal Ligation INFORMATION Weight: 3487 grams Sex: Female Delivery Date: 05/12/2014 Delivery Time: 0832 Apgars: 51, 75 Peds Present Admitting Nursery: NICU Nuchal Cord: x1; Placental Cord Insertion: Normal; Umbilical Cord Vessels: Three UA Testing: pH: 7.16; pCO2: 79; pO2: 10; Base Deficit: 3.4; UV pH: 7.25 DELIVERY PERSONNEL Delivery Provider: Khalida Quiñones Primary Nurse: Juany Martinez Service / Group: MFM Resident 1: Lilibeth Ontiveros Provider: Khalida Quiñones [place] Staff/CNM Signature: Lilibeth Ontiveros 05/12/2014 @ 3543 Attending attestation: I was present during the penaloza and critical portions of the procedure and agree with the resident's/fellow's note. Khalida Quiñones MD 05/12/2014 14:34 documented in this encounter Consult Notes * Mónica Dominguez MD - 05/13/2014 1058 EST Endocrine Inpatient Consult Note Admit Date: 05/12/2014 Date of Service: 05/13/2014 Requesting Physician: Dr. Kristi Leblanc Specialty Completing Consult: Endocrinology Reason for Consult: Management of glucoses post- HPI:(include onset,location,quality,severity, duration, timing, associating symptoms) This woman who just delivered her third child is seen for glycemic management. The team was discussing inducing labor due to poor movement, when her water broke. She then underwent a (due to hx of this). The baby is in the NICU, having had hypoglycemia at . She states that she has had diabetes type 2 and PCOS and was on orals (metformin and glyburide) for most of the until week 32. 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 She reports that her glucoses can be 25 or 325. Prior to insulin she was metformin and glyburide. She is not seen in the endocrine clinic; her primary care is Dr. Bhargav Padron. She reports that she took an insulin overdose in 2013, and has undergone counseling for this. She has not been adherent at checking her FS, keeping a diary or bringing in a glucometer to reviewreadings during the per charts. Started Metformin last night. Had small emesis after supper--but felt this was unrelated to diabetes medication and is not nauseated now. Results for HILDA CROWLEY ( ) as of 05/12/2014 12:38 Ref. Range 04/30/2012 09:37 04/14/2013 11:31 10/06/2013 14:56 02/22/2014 14:55 04/16/2014 12:02 Hemoglobin A1C No range found 7.9 7.5 7.4 5.8 7.0 PMH PSH Past Medical History Diagnosis Date [...] Medication Route Frequency ??? acetaminophen (TYLENOL) tablet 325-650 mg oral Q4H ??? [START ON 05/14/2014] acetaminophen (TYLENOL) tablet 325-650 mg oral Q4H PRN ??? bisacodyl (DULCOLAX) suppository 10 mg rectal Daily PRN ??? calcium carbonate (TUMS) 200 mg calcium (500 mg) per chewable tablet tablet,chewable 1-2 Tab oral Q2H PRN ??? cyclobenzaprine (FLEXERIL) tablet 10 mg oral DAILY BEFORE BREAKFAST ??? cyclobenzaprine (FLEXERIL) tablet 20 mg oral QHS ??? dextrose 5 % and 0.45 % NaCl with KCl 20 mEq/L infusion intravenous CONTINUOUS ??? dextrose 50 % solution 12.5 g intravenous PRN ??? docusate sodium (COLACE) capsule 100 mg oral BID PRN ??? gabapentin (NEURONTIN) capsule 1,500 mg oral QHS ??? glucagon (human recombinant) injection 1 mg intramuscular PRN ??? HYDROmorphone (DILAUDID) tablet 2-6 mg oral Q4H PRN ??? HYDROmorphone (PF) (DILAUDID) 1 mg/mL injection 0.2-0.6 mg intravenous Q4H PRN ??? ibuprofen (MOTRIN) tablet 400 mg oral Q4H ??? [START ON 05/14/2014] ibuprofen (MOTRIN) tablet 400 mg oral Q4H PRN ??? insulin aspart (NOVOLOG FLEXPEN) injection subcutaneous TID WC ??? labetalol (NORMODYNE) tablet 200 mg oral Q12H ??? lactated ringers (LR) infusion intravenous CONTINUOUS ??? lansinoh HPA lanolin topical PRN ??? magnesium hydroxide (MILK OF MAGNESIA) 400 mg/5 mL suspension 30 mL oral AT BEDTIME PRN ??? metFORMIN (GLUCOPHAGE) tablet 1,000 mg oral BID (BREAKFAST/DINNER) ??? multivitamin vit-iron fumarate-FA (STUARTNATAL) 27 mg iron- 1 mg tablet 1 Tab oral DAILY ??? ondansetron (PF) (ZOFRAN) injection 2-4 mg intravenous Q6H PRN ??? QUEtiapine (SEROQUEL) tablet 200 mg oral BID Allergies No Known Allergies Review of Systems: Pertinent items are noted in Subjective/HPI Denies nausea or anorexia now Objective/Physical Exam: VS: BP 90/58 Pulse 96 Temp(Src) 36 ??C (96.8 ??F) (Temporal) Resp 20 Ht 154 cm (60.63) Wt 90 kg (198 lb 6.6 oz) BMI 37.95 kg/m2 SpO2 97% LMP 08/31/2013 Exam: ENT: PERRL Neck/Thyroid: no masses normal thyroid gland Respiratory: Clear to auscultation bilaterally Cardiovascular: Auscultation Heart: no S3, no S4 and no gallop Extremities: Pedal Pulses: Symmetric distal pulses Gastrointestinal:: Examination of ulcer/spleen: No hepatomegaly, no splenomegaly Musculoskeletal: Inspection/Palpation Digits/Nails: no abnormalities Skin: Inspection: skin normal to inspection Neurologic: Cranial Nerves: intact Psychiatric: Judgement/Insight: oriented, pleasant mood Data Review: I have independently visualized the Labs: Recent Labs 05/12/14 0514 05/12/14 0713 05/12/14 1112 05/12/14 1326 05/12/14 2053 05/12/14 2349 05/13/14 0712 GLUCOSEFINGE 127* 114* 143* 104* 148* 170* 150* Lab Results Component Value Date WBC 19.21* 05/13/2014 RBC 3.79* 05/13/2014 HGB 12.1 05/13/2014 HCT 35.2 05/13/2014 MCV 93 05/13/2014 MCH 31.8 05/13/2014 MCHC 34.2 05/13/2014 PLT 295 05/13/2014 NEUTROABS 13.03* 04/23/2014 SEDRATE 10 07/13/2010 Lab Results Component Value Date SERGLU 87 05/08/2014 NA 134* 12/31/2013 K 3.5 12/31/2013 CL 102 12/31/2013 CO2 18* 12/31/2013 BUN 7* 04/23/2014 CREATININE 0.58 04/30/2014 CALCIUM 9.5 04/14/2013 CALCGFR >60 04/30/2014 ALKPHOS 71 04/14/2013 TBIL 0.5 04/14/2013 AST 25 04/30/2014 ALT 27 04/30/2014 LABALBU 4.5 04/14/2013 TP 6.9 04/14/2013 Assessment: Seems to be doing OK on medication. Would not add a second agent unless glucoses are higher at home--as home and hospital habits may be divergent. Can follow up in the [facility] ([facility]) or with her usual team. Recommend alsoa 1600 calorie plan with carbs at meals of no more than 50 gms. Recommendations: 1) Can d/c on Metformin 2) F/up as outpatient with usual team or [facility] in 3-6 wks. 3. If not at goal on Metformin alone, could consider addition of Sitagliptin or Canagliflozin to avoid lows that could occur on sulfonylureas (but these agents are more expensive). 4. Can stop supplemental scale of insulin. Mónica Dominguez MD 05/13/2014 10:58 Will sign off as pt anticipates d/c tomorrow. * Mónica Dominguez MD - 05/12/2014 1234 EST Endocrine Inpatient Consult Note Admit Date: 05/12/2014 Date of Service: 05/12/2014 Requesting Physician: Dr. Kristi Leblanc Specialty Completing Consult: Endocrinology Reason for Consult: Management of glucoses post- HPI:(include onset,location,quality,severity, duration, timing, associating symptoms) This woman who just delivered her third child is seen for glycemic management. The team was discussing inducing labor due to poor movement, when her water broke. The baby is in the NICU, having had hypoglycemia at . She states that she has had diabetes type 2 and PCOS and was on orals (metformin and glyburide) for most of the until week 32. 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 She reports that her glucoses can be 25 or 325. Prior to insulin she was metformin and glyburide. She is not seen in the endocrine clinic; her primary care is Dr. Bhargav Padron. She reports that she took an insulin overdose in 2013, and has undergone counseling for this. She has not been adherent at checking her FS, keeping a diary or bringing in a glucometer to reviewreadings during the per charts. Results for TED HILDA Jeevan ( ) as of 05/12/2014 12:38 Ref. Range 04/30/2012 09:37 04/14/2013 11:31 10/06/2013 14:56 02/22/2014 14:55 04/16/2014 12:02 Hemoglobin A1C No range found 7.9 7.5 7.4 5.8 7.0 PMH PSH Past Medical History Diagnosis Date [...] ??? acetaminophen (TYLENOL) tablet 650 mg oral PRN ??? carboprost (HEMABATE) 250 mcg/mL intramuscular injection ??? carboprost (HEMABATE) intramuscular injection 250 mcg intramuscular PRN ??? cellulose, oxidized 2 x 14 (SURGICEL) 2 X 14 pad pad ??? dextrose 50 % solution 12.5 g intravenous PRN ??? dextrose 50 % solution 12.5 g intravenous PRN ??? gabapentin (NEURONTIN) capsule 1,500 mg oral DAILY ??? glucagon (human recombinant) injection 1 mg intramuscular PRN ??? glucagon (human recombinant) injection 1 mg intramuscular PRN ??? ibuprofen (MOTRIN) tablet 400 mg oral PRN ??? insulin regular (HUMULIN R,NOVOLIN R) injection subcutaneous TID WC ??? labetalol (NORMODYNE) tablet 200 mg oral Q12H ??? lactated ringers (LR) infusion intravenous CONTINUOUS ??? metFORMIN (GLUCOPHAGE) tablet 1,000 mg oral BID (BREAKFAST/DINNER) ??? methylergonovine (METHERGINE) 0.2 mg/mL (1 mL) injection ??? methylergonovine (METHERGINE) injection 200 mcg intramuscular PRN ??? misoprostol (CYTOTEC) 200 mcg tablet ??? misoprostol (CYTOTEC) tablet 200 mcg buccal PRN ??? misoprostol (CYTOTEC) tablet 800 mcg rectal PRN ??? QUEtiapine (SEROQUEL) tablet 200 mg oral BID Allergies No Known Allergies Review of Systems: Pertinent items are noted in Subjective/HPI Denies blurred vision, no chest pain or SOB, no diarrhea or constip, no polyuria or nocturia, rightnow has lower paresthesias from local anesthesia. Objective/Physical Exam: VS: BP: 139/71 mmHg Heart Rate: 80 BPM Resp: 18 Temp: 36.7 ??C (98.1 ??F) Exam: ENT: PERRL Neck/Thyroid: no masses normal thyroid gland Respiratory: Clear to auscultation bilaterally Cardiovascular: Auscultation Heart: no S3, no S4 and no gallop Extremities: Pedal Pulses: Symmetric distal pulses Gastrointestinal:: Examination of ulcer/spleen: No hepatomegaly, no splenomegaly Musculoskeletal: Inspection/Palpation Digits/Nails: no abnormalities Skin: Inspection: skin normal to inspection Neurologic: Cranial Nerves: intact Psychiatric: Judgement/Insight: oriented, pleasant mood Data Review: I have independently visualized the Labs: Recent Labs 05/12/14 0514 05/12/14 0713 05/12/14 1112 GLUCOSEFINGE 127* 114* 143* Lab Results Component Value Date WBC 18.81* 05/12/2014 RBC 3.98 05/12/2014 HGB 12.6 05/12/2014 HCT 37.0 05/12/2014 MCV 93 05/12/2014 MCH 31.6 05/12/2014 MCHC 34.1 05/12/2014 PLT 291 05/12/2014 NEUTROABS 13.03* 04/23/2014 SEDRATE 10 07/13/2010 Lab Results Component Value Date SERGLU 87 05/08/2014 NA 134* 12/31/2013 K 3.5 12/31/2013 CL 102 12/31/2013 CO2 18* 12/31/2013 BUN 7* 04/23/2014 CREATININE 0.58 04/30/2014 CALCIUM 9.5 04/14/2013 CALCGFR >60 04/30/2014 ALKPHOS 71 04/14/2013 TBIL 0.5 04/14/2013 AST 25 04/30/2014 ALT 27 04/30/2014 LABALBU 4.5 04/14/2013 TP 6.9 04/14/2013 Assessment: Given her history would discharge on metformin alone to avoid lows. This can be startedat 500 mg BID and increased on discharge or when eating well and tolerating to 1000 mg BID. Glucosecan be checked once a day on orals, alternating fasting with mid-afternoon and mid-evening if pt motivated to do so. If stable does not have to check daily, but goal is 80-130 fasting and 80-150 during the day. This would be an A1c of 6-6.5% for excellent control and up to 7% for good control. Can follow up in the [facility] ([facility]) or with her usual team. Recommend alsoa 1600 calorie plan with carbs at meals of no more than 50 gms. Recommendations: 1) Can d/c on Metformin 2) F/up as outpatient with usual team or [facility] in 3-6 wks. ). If not at goal on Metformin alone, could consider addition of Sitagliptin or Canagliflozin to avoid lows that could occur on sulfonylureas (but these agents are more expensive). Mónica Dominguez MD 05/12/2014 12:34 documented in this encounter Nursing Notes * SENIOR MANUFACTURING ENGINEER, SCAN 2 - 05/19/2014 6966 EST documented in this encounter OR Notes * OR Surgeon - Khalida Quiñones MD - 05/13/2014 1881 EST OPERATIVE REPORT SERVICE DATE: 05/12/2014 SURGEON: Khalida Quiñones MD FLATBED TRUCK DRIVER: Lilibeth Ontiveros MD PREOPERATIVE DIAGNOSIS: 1. Intrauterine at 36 weeks 2 days. 2. premature rupture of membranes. 3. Nonreassuring assessment. 4. Desired repeat section. 5. Desired permanent sterilization. POSTOPERATIVE DIAGNOSIS: 1. Intrauterine at 36 weeks 2 days. 2. premature rupture of membranes. 3. Nonreassuring assessment. 4. Desired repeat section. 5. Desired permanent sterilization. 6. Delivered. PROCEDURE: Low transverse section via Pfannenstiel incision with single layer uterine closure, right Maylard incision, and bilateral tubal ligation. ANESTHESIA: Spinal. INDICATIONS: This is a 38-year-old G4, P2-0-1-2 who presented at 36 weeks 2 days for routine NST for her history of type 2 diabetes and chronic hypertension. On monitoring, the heart tracing was significant for intermittent variable decelerations, and decision was made to continue with extended monitoring. Shortly thereafter, the patient had spontaneous PPROM, followed by continued variables. The decision was made to proceed with repeat section and bilateral tubal ligation. Risks, benefits and alternatives were discussed and informed consent was signed again on the day of the procedure. FINDINGS: 1. Dense adhesive tissue from the anterior wall of the uterus to the peritoneum and fascial layers,as well as adhesions from superior aspect of the uterus to the omentum. 2. A liveborn female weighing 3487 g, born at 8:32 with Apgars of 5 and 7 at one and five minutes, respectively. 3. Normal-appearing placenta with 3-vessel cord. 4. Normal-appearing uterus and ovaries bilaterally. 5. Fallopian tubes identified by their fimbriated ends, appeared normal prior to tubal ligation. 6. Oozing noted from the left rectus muscle interface at the omental prior to Surgicel placement. 7. Surgicel placed at the left rectus muscle inferior to the right lateral aspect of the hysterotomy. NARRATIVE: The patient was brought to the operating room with an IV in place. Spinal anesthesia wasobtained. The patient was placed in the dorsal lithotomy position and prepped and draped in the normal sterile fashion. A Pfannenstiel incision was made with a scalpel and carried down to the underlying layer of fascia. The fascia was incised in the midline and extended laterally with the Felipe scissors. The superior aspect of this incision was then grasped, and the rectus muscles were dissected off bluntly then sharply. Attention was then turned to the inferior aspect of this incision, which was grasped with Kochers, and again the rectus muscles were dissected off bluntly then sharply. Dense scar tissue was noted in the midline; however, a window was identified to the left. Dense scar tissue was present from the lower uterine segment to midway up the anterior wall of the uterus. Due to inability to dissect the scar tissue, a right Maylard was performed with the Bovie. The scar tissue anteriorly was brought down with the Metzenbaums until the lower segment of the uterus was able to be visualized. The large Jorge retractor was then placed in the abdomen, and a low transverse incisionwas made in the uterus. The female was found to be in the breech position and delivered via standard breech maneuvers and had a single nuchal cord. The cord was clamped and cut and she was handed off to the awaiting pediatricians. A segment of cord was obtained for cord gases. Cord blood wasthen obtained for the patient's Rh negative status. The placenta was then removed under gentle traction, and the uterus was cleared of clots and remaining amniotic tissue. There was bleeding noted hue from the right aspect of the hysterotomy and repair of the hysterotomy was begun from the cornerof this incision for a couple of centimeters towards the midline. The remainder of the hysterotomy was then closed from the left to the right in a running locked fashion with 0 PDS. There was bleeding noted to be above the hysterotomy where there was denudation of the serosa of the uterus. This wasrepaired with multiple [id number] of 0 chromic. Attention was then turned to the left fallopian tube, which was grasped with a Oleg. A knuckle of tube was tied and a snap was used to dissectthe mesosalpinx. Two ties were pulled through the tube and the 2 segments of tube were then tied. This intervening segment of the fallopian tube was removed and the ends were found to be hemostatic. Attention was then turned to the right fallopian tube and tubal ligation was performed in the same fashion. At this point, irrigation was performed and bleeding was noted to be coming from the edge ofthe rectus muscles on the left. Several [id number] were placed, however, oozing continued. Pressure was held and the Jorge retractor was then removed from the abdomen. Prior to closure of fascia, Surgicel was placed over the left lateral rectus muscle and inferior to the right aspect of the hysterotomy. The fascia was then closed with 0 Vicryl in a running fashion, and skin was closed with3-0 Monocryl on a curved needle. The patient tolerated the procedure well. Sponge, lap and instrument counts were correct x2. Two grams of Ancef were given prior to skin incision. Dr Khalida Quiñoneswas present and scrubbed throughout the entire procedure. ESTIMATED BLOOD LOSS: 750 mL. URINE OUTPUT: 125 mL. FLUIDS: 3200 mL LR. DRAINS, PACKS, FOREIGN OBJECTS RETAINED: Staton catheter. SPECIMENS SENT: Placenta, cord gases, cord blood. COMPLICATIONS: None. CONDITION: Stable. DISPOSITION: M7 to [facility]. Unless otherwise noted, there were no complications, no blood loss, no cultures obtained, no specimens removed, and no drains retained. Attending attestation: I was present during the penaloza and critical portions of the procedure and agree with the resident's/fellow's note. Khalida Quiñones MD 05/14/2014 12:02 10 33 AM / Lilibeth Ontievros MD cn Confirmation: [id number] Dictation ID: [id number] * Anesthesia Procedure Notes - SENIOR MANUFACTURING ENGINEERIDANIA 2 - 05/12/2014 1015 EST documented in this encounter Miscellaneous Notes * Plan of Care - Harshil Olvera RN - 05/16/2014 1806 EST Post- Shift Note Maternal: Admit Date: 05/12/2014 Hospital Day: LOS: 4 days Date of Delivery: Information for the patient's : Cruz Crowley [[id number]] 05/12/2014 Time of Delivery: Information for the patient's : Cruz Crowley [[id number]] 0832 Type of Delivery: repeat section Rhogam Administration: Given 05/13/13 Gestation (weeks): Information for the patient's : Cruz Crowley [[id number]] 36 06/05 Hepatitis B: Lab Results Component Value Date HEPBSAG Negative 10/06/2013 Hepatitis C: No results found for this basename: HEPCAB Rubella: Protected Anesthesia/Duramorph: Spinal Episiotomy/Laceration:None Vital signs: Stable No data found. Post- check: WNL IV / SL: None Staton/Void: Patient up and voiding Pain Medications: Given this shift - see MAR Feeding: Bottle feeding baby in NICU Feeding assistance: Other: baby in nicu Special Social Circumstances: mom to tell us before eating so we can do ac chem and give sliding scale insulin Discharge Education:Education initiated Certificate: Completed Comments: Baby in NICU for hypoglycemia. Pt EXHAUSTER on L&D. Pt on meds (labetelol) for chronic HTN.As well Seroquel, flexeril, neurontin, metformin, and insulin. Pt with fibromyalgia and previous psych issues x2 suicide attempts with insulin. FS are Q ac and HS. Pain has been controlled with meds as ordered. [id number]: Ready for discharge to home. AVS handed in and discharge education completed. Harshil Olvera RN 05/16/2014 * Plan of Care - Talat Laws RN - 05/16/2014 0556 EST Problem: PAIN Goal: Patient???s pain/discomfort is manageable/tolerable Data: Pt is POD 4 post . Experiencing mild to moderate pain. Pts pain will be well managed. Action: Pt given pain meds every 4 hours. Pain tolerable with tylenol, motrin, and Dilaudid 6 mg PO. Response: Will continue to assess pain hourly and continue with pain meds every 4 hours. Talat Laws RN 05/16/2014 5:03 * Plan of Care - Harshil Olvera RN - 05/15/2014 6960 EST Post- Shift Note Maternal: Admit Date: 05/12/2014 Hospital Day: LOS: 3 days Date of Delivery: Information for the patient's : Cruz Crowley [[id number]] 05/12/2014 Time of Delivery: Information for the patient's : Cruz Crowley [[id number]] 0832 Type of Delivery: repeat section Rhogam Administration: Given 05/13/13 Gestation (weeks): Information for the patient's : Cruz Crowley [[id number]] 36 06/05 Hepatitis B: Lab Results Component Value Date HEPBSAG Negative 10/06/2013 Hepatitis C: No results found for this basename: HEPCAB Rubella: Protected Anesthesia/Duramorph: Spinal Episiotomy/Laceration:None Vital signs: Stable Patient Vitals for the past 8 hrs: BP Heart Rate Resp Temp SpO2 05/15/14 2136 136/60 mmHg 98 BPM 18 - 99 % 05/15/14 1604 124/69 mmHg 99 BPM 20 36.3 ??C (97.3 ??F) 100 % Post- check: WNL IV / SL: None Staton/Void: Patient up and voiding Pain Medications: Given this shift - see MAR Feeding: Bottle feeding baby in NICU Feeding assistance: Other: baby in nicu Special Social Circumstances: mom to tell us before eating so we can do ac chem and give sliding scale insulin Discharge Education:Education initiated Certificate: Not completed Asked for it back and mom said she needed to look it over first. Told her the state needs it by day 5 Comments: Baby in NICU for hypoglycemia. Pt EXHAUSTER on L&D. Pt on meds (labetelol) for chronic HTN.As well Seroquel, flexeril, neurontin, metformin, and insulin. Pt with fibromyalgia and previous psych issues x2 suicide attempts with insulin. FS are Q ac and HS. Pain has been controlled with meds as ordered. [id number]: VSS, meds given @ 2100- see mar. HS finger stick due when pt returns from NICU- pt aware. PT reports abdomen feels more firm to her- passing gas and +BM this evening. No nausea, +BS heard. Harshil Olvera RN 05/15/2014 * Plan of Care - Maria Eugenia Gómez RN - 05/15/2014 1648 EST Post- Shift Note Maternal: Admit Date: 05/12/2014 Hospital Day: LOS: 3 days Date of Delivery: Information for the patient's : Cruz Crowley [[id number]] 05/12/2014 Time of Delivery: Information for the patient's : Cruz Crowley [[id number]] 0832 Type of Delivery: repeat section Rhogam Administration: Given 05/13/13 Gestation (weeks): Information for the patient's : Cruz Crowley [[id number]] 36 06/05 Hepatitis B: Lab Results Component Value Date HEPBSAG Negative 10/06/2013 Hepatitis C: No results found for this basename: HEPCAB Rubella: Protected Anesthesia/Duramorph: Spinal Episiotomy/Laceration:None Vital signs: Stable Patient Vitals for the past 8 hrs: BP Heart Rate Resp Temp SpO2 05/15/14 1604 124/69 mmHg 99 BPM 20 36.3 ??C (97.3 ??F) 100 % Post- check: WNL IV / SL: None Staton/Void: Patient up and voiding Pain Medications: Given this shift - see MAR Feeding: Bottle feeding baby in NICU Feeding assistance: Other: baby in nicu Special Social Circumstances: mom to tell us before eating so we can do ac chem and give sliding scale insulin Discharge Education:Education initiated Certificate: Not completed Asked for it back and mom said she needed to look it over first. Told her the state needs it by day 5Comments: Baby in NICU for hypoglycemia. Pt EXHAUSTER on L&D. Drinking and eating well Pt on meds (labetelol) for chronic HTN. As well Seroquel, flexeril, neurontin, metformin, and insulin. Pt with fibromyalgia and previous psych issues x2 suicide attempts with galindo saba. FS are Q ac and HS. Pain has been controlled with meds as ordered. 05/15/14 travis shift mom feels like her lower abd is more distented. She said she had a bowel movementthis am. Bowel sounds were not present when i listened. Not nauseated. This mom still needs her ac supper chem and sliding scale insulin with dinner. She said she was not going to eat yet although she does have a sandwich in room from a deli down the road. Care plan focus note. Met this shift. Support mom of baby in nicu. Data: Mom up to nicu and to labor and delivery to visit. Fob present and supportive. Action. Encourage verbalization and make sure mom knows she can ask to talk to anyone. Encourage rest and nicu visits. Response. Mom seems to be handling baby in nicu ok Maria Eugenia Gómez RN 05/15/2014 16:48 * Plan of Care - Rebecca Chavez RN - 05/15/2014 1434 EST Post- Shift Note Maternal: Admit Date: 05/12/2014 Hospital Day: LOS: 3 days Date of Delivery: Information for the patient's : Cruz Crowley [[id number]] 05/12/2014 Time of Delivery: Information for the patient's : Cruz Crowley [[id number]] 0832 Type of Delivery: repeat section Rhogam Administration: Given 05/13/13 Gestation (weeks): Information for the patient's : Cruz Crowley [[id number]] 36 06/05 Hepatitis B: Lab Results Component Value Date HEPBSAG Negative 10/06/2013 Hepatitis C: No results found for this basename: HEPCAB Rubella: Protected Anesthesia/Duramorph: Spinal Episiotomy/Laceration:None Vital signs: Stable Patient Vitals for the past 8 hrs: BP Heart Rate Resp Temp SpO2 05/15/14 0845 126/68 mmHg - - - - 05/15/14 0840 126/68 mmHg 84 BPM 18 36.6 ??C (97.9 ??F) 98 % Post- check: WNL IV / SL: None Staton/Void: Patient up and voiding Pain Medications: Given this shift - see MAR Feeding: Bottle feeding baby in NICU Feeding assistance: Other: baby in nicu Special Social Circumstances: mom to tell us before eating so we can do ac chem and give sliding scale insulin Discharge Education:Education initiated Certificate: Not completed Comments: Baby in NICU for hypoglycemia. Pt EXHAUSTER on L&D. Drinking and eating well Pt on meds (labetelol) for chronic HTN. As well Seroquel, flexeril, neurontin, metformin, and insulin. Pt with fibromyalgia and previous psych issues x2 suicide attempts with insulin. FS are Q ac and HS. Pain has been controlled with meds as ordered. Rebecca Chavez RN 05/15/2014 14:34 * Plan of Care - Gabriela Dyer RN - 05/15/2014 0504 EST Problem: PAIN Goal: Patient???s pain/discomfort is manageable/tolerable Outcome: Met This Shift Data: 3 day PP c/s. Up and about, ambulating up to NICU. 5/10 lower abd pain. Action: medicated TM and dilaudid 6 mg as ordered. Response: Pt seen up and about, going to nicu, looks comfortable. Asleep on nights. * Plan of Care - Harshil Olvera RN - 05/14/2014 8349 EST Post- Shift Note Maternal: Admit Date: 05/12/2014 Hospital Day: LOS: 2 days Date of Delivery: Information for the patient's : Cruz Crowley [[id number]] 05/12/2014 Time of Delivery: Information for the patient's : Cruz Crowley [[id number]] 0832 Type of Delivery: repeat section Rhogam Administration: Given 05/13/13 Gestation (weeks): Information for the patient's : Cruz Crowley [[id number]] 36 2/7 Hepatitis B: Lab Results Component Value Date HEPBSAG Negative 10/06/2013 Hepatitis C: No results found for this basename: HEPCAB Rubella: Protected Anesthesia/Duramorph: Spinal Episiotomy/Laceration:None Vital signs: Stable Patient Vitals for the past 8 hrs: BP Heart Rate Resp Temp SpO2 05/14/14 1612 134/66 mmHg 107 BPM 18 36.3 ??C (97.3 ??F) 98 % Post- check: WNL IV / SL: None Staton/Void: Patient up and voiding Pain Medications: Given this shift - see MAR Feeding: Bottle feeding baby in NICU Feeding assistance: Other: baby in nicu Special Social Circumstances: mom to tell us before eating so we can do ac chem and give sliding scale insulin Discharge Education:Education initiated Certificate: Not completed Comments: Baby in NICU for hypoglycemia. Pt EXHAUSTER on L&D. Drinking and eating well Pt on meds (labetelol) for chronic HTN. As well Seroquel, flexeril, neurontin, metformin, and insulin. Pt with fibromyalgia and previous psych issues x2 suicide attempts with insulin. FS are Q ac and HS. Pain has been controlled with meds as ordered. Harshil Olvera RN 05/14/2014 18:29 * Plan of Care - Rachael Bowles RN - 05/14/2014 1543 EST Problem: PAIN Goal: Patient???s pain/discomfort is manageable/tolerable Outcome: Met This Shift D: stable pp patient, taking tylenol, motrin and dilaudid q 4, A: offered pain medication prn, vs Done per orders R: pt reports pain well controlled, vssa * Plan of Care - Rachael Bowles RN - 05/14/2014 1542 EST Post- Shift Note Maternal: Admit Date: 05/12/2014 Hospital Day: LOS: 2 days Date of Delivery: Information for the patient's : Cruz Crowley [[id number]] 05/12/2014 Time of Delivery: Information for the patient's : Cruz Crowley [[id number]] 0832 Type of Delivery: repeat section Rhogam Administration: Given 05/13/13 Gestation (weeks): Information for the patient's : Cruz Crowley [[id number]] 36 06/05 Hepatitis B: Lab Results Component Value Date HEPBSAG Negative 10/06/2013 Hepatitis C: No results found for this basename: HEPCAB Rubella: Protected Anesthesia/Duramorph: Spinal Episiotomy/Laceration:None Vital signs: Stable Patient Vitals for the past 8 hrs: BP Heart Rate Resp Temp SpO2 05/14/14 0919 124/63 mmHg - - - - 05/14/14 0817 117/62 mmHg 103 BPM 18 36.5 ??C (97.7 ??F) 97 % Post- check: WNL IV / SL: None Staton/Void: Patient up and voiding Pain Medications: Given this shift - see MAR Feeding: Bottle feeding baby in NICU Feeding assistance: Other: baby in nicu Special Social Circumstances: mom to tell us before eating so we can do ac chem and give sliding scale insulin Discharge Education:Education initiated Certificate: Not completed Comments: Baby in NICU for hypoglycemia. Pt EXHAUSTER on L&D. Drinking and eating well Pt on meds (labetelol) for chronic HTN. As well Seroquel, flexeril, neurontin, metformin, and insulin. Pt with fibromyalgia and previous psych issues x 2 suicide attempts with insulin. FS are Q ac and HS. Pain has been controlled with meds as ordered. Rachael Bowles RN 05/14/2014 15:42 * Plan of Care - Leyda Shelby, ROBI - 05/14/2014 0524 EST Post- Shift Note Maternal: Admit Date: 05/12/2014 Hospital Day: LOS: 2 days Date of Delivery: Information for the patient's : Cruz Crowley [[id number]] 05/12/2014 Time of Delivery: Information for the patient's : Cruz Crowley [[id number]] 0832 Type of Delivery: repeat section Rhogam Administration: Given 05/13/13 Gestation (weeks): Information for the patient's : Cruz Crowley [[id number]] 36 2/7 Hepatitis B: Lab Results Component Value Date HEPBSAG Negative 10/06/2013 Hepatitis C: No results found for this basename: HEPCAB Rubella: Protected Anesthesia/Duramorph: Spinal Episiotomy/Laceration:None Vital signs: Stable Patient Vitals for the past 8 hrs: BP Heart Rate Resp Temp SpO2 05/14/14 0010 118/58 mmHg 95 BPM 18 36.5 ??C (97.7 ??F) 98 % 05/13/14 2142 130/68 mmHg 116 BPM 18 - - Post- check: WNL IV / SL: None Staton/Void: Patient up and voiding Pain Medications: Given this shift - see MAR Feeding: Bottle feeding baby in NICU Feeding assistance: Other: baby in nicu Special Social Circumstances: mom to tell us before eating so we can do ac chem and give sliding scale insulin Discharge Education:Education initiated Certificate: Not completed Comments: Baby in NICU for hypoglycemia. Pt EXHAUSTER on L&D. Drinking and eating well Pt on meds (labetelol) for chronic HTN. As well Seroquel, flexeril, neurontin, metformin, and insulin. Pt with fibromyalgia and previous psych issues x 2 suicide attempts with insulin. FS are Q ac and HS. Pain has been controlled with meds as ordered. D: Post-op C/S day 1. Pain control. A: Meds given Q 4 hrs. Tylenol, Motrin, Dilaudid 6 mg R: Pain controlled well. 07/06. 2329-4082: Routine pp c/s care ,up & voiding ,+ flatus,see mar for meds. HS chem was 259 received A 1x dose of insulin ( see mar ), up to nicu x1 & outside x 1, will do a Fasting BS this am. Leyda Shelby LPN 05/14/2014 5:24 * Plan of Care - Leyda Shelby LPN - 05/14/2014 0218 EST Problem: CARE Goal: Vital Signs Are Medically Acceptable Outcome: Ongoing D: VSS A: Vital signs done per protocol. R: VSSA, continue to monitor * Plan of Care - Steph Chavez RN - 05/13/2014 1801 EST Post- Shift Note Maternal: Admit Date: 05/12/2014 Hospital Day: LOS: 1 day Date of Delivery: Information for the patient's : Ted Ojtilaeber [[id number]] 05/12/2014 Time of Delivery: Information for the patient's : Hitchita, Cruz [[id number]] 0832 Type of Delivery: repeat section Rhogam Administration: Given 05/13/13 Gestation (weeks): Information for the patient's : Ted, Cruz [[id number]] 36 06/05 Hepatitis B: Lab Results Component Value Date HEPBSAG Negative 10/06/2013 Hepatitis C: No results found for this basename: HEPCAB Rubella: Protected Anesthesia/Duramorph: Spinal Episiotomy/Laceration:None Vital signs: Stable Patient Vitals for the past 8 hrs: BP Heart Rate Resp Temp 05/13/14 1530 110/54 mmHg 96 BPM 18 36.4 ??C (97.5 ??F) 05/13/14 1156 90/54 mmHg 88 BPM 20 36.6 ??C (97.9 ??F) Post- check: WNL IV / SL: None Staton/Void: Patient up and voiding Pain Medications: Given this shift - see MAR Feeding: Bottle feeding baby in NICU Feeding assistance: Other: baby in nicu Special Social Circumstances: mom to tell us before eating so we can do ac chem and give sliding scale insulin Discharge Education:Education initiated Certificate: Not completed Comments: Baby in NICU for hypoglycemia. Pt EXHAUSTER on L&D. Drinking and eating well Pt on meds (labetelol) for chronic HTN. As well Seroquel, flexeril, neurontin, metformin, and insulin. Pt with fibromyalgia and previous psych issues x 2 suicide attempts with insulin. FS are Q ac and HS. Pain has been controlled with meds as ordered. D: Post-op C/S day 1. Pain control. A: Meds given Q 4 hrs. Tylenol, Motrin, Dilaudid 6 mg R: Pain controlled well. 07/06. Steph Chavez RN 05/13/2014 18:04 * Plan of Care - Maria Eugenia Gómez RN - 05/13/2014 1207 EST Post- Shift Note Maternal: Admit Date: 05/12/2014 Hospital Day: LOS: 1 day Date of Delivery: Information for the patient's : Ted Ojtilaeber [[id number]] 05/12/2014 Time of Delivery: Information for the patient's : TedCruz [[id number]] 0832 Type of Delivery: repeat section Rhogam Administration: Not given - order in chart Gestation (weeks): Information for the patient's : HitchitaCruz [[id number]] 36 06/05 Hepatitis B: Lab Results Component Value Date HEPBSAG Negative 10/06/2013 Hepatitis C: No results found for this basename: HEPCAB Rubella: Protected Anesthesia/Duramorph: Spinal Episiotomy/Laceration:None Vital signs: Stable bp med not given this am due to low bp. Marisol mak was telling md and also asking to have pt.Ordered her focalin xl 10 mg tid and her neurontin and seroquel at hs. Patient Vitals for the past 8 hrs: BP Heart Rate Resp Temp SpO2 05/13/14 1156 90/54 mmHg 88 BPM 0 36.6 ??C (97.9 ??F) - 05/13/14 0836 90/58 mmHg - - - - 05/13/14 0751 115/58 mmHg 103 BPM 20 36 ??C (96.8 ??F) 97 % Post- check: WNL IV / SL: Saline lock removed - catheter intact Staton/Void: Patient up and voiding Pain Medications: Given this shift - see MAR Feeding: mom wants to only bottle feed formula Feeding assistance: Other: baby in nicu Special Social Circumstances: mom to tell us before eating so we can do ac chem and give sliding scale insulin Discharge Education:Education initiated Certificate: Not completed Comments: Baby in NICU for hypoglycemia. Pt EXHAUSTER on L&D. Drinking and eating well Pt on meds (labetelol) for chronic HTN. As well Seroquel, flexeril, neurontin, metformin, and insulin. Pt with fibromyalgia and previous psych issues x 2 suicide attempts with insulin. FS are Q ac and HS. Pain has been controlled with meds as ordered. Care plan focus note. Offer emotional support for mom who has baby in nicu. Data.Mom visiting baby whenever she wants, knows she can call to nicu or visit at any time. Knows to ask question when theycome up. Action: assist patient with nicu visits if needed, encouraged rest. Made sure questions are answered and that she has emotional support. Response: fob present this am and supportive. Mom seems appropriate and spends time in nicuMaria Eugenia Gómez, PRISCILA 05/13/2014 12:07 * Plan of Care - Tea Osuna RN - 05/13/2014 0513 EST Post- Shift Note Maternal: Admit Date: 05/12/2014 Hospital Day: LOS: 1 day Date of Delivery: Information for the patient's : Cruz Crowley [[id number]] 05/12/2014 Time of Delivery: Information for the patient's : Cruz Crowley [[id number]] 0832 Type of Delivery: repeat section Rhogam Administration: Not given - order in chart Gestation (weeks): Information for the patient's : Cruz Crowley [[id number]] 36 06/05 Hepatitis B: Lab Results Component Value Date HEPBSAG Negative 10/06/2013 Hepatitis C: No results found for this basename: HEPCAB Rubella: Protected Anesthesia/Duramorph: Spinal Episiotomy/Laceration:None Vital signs: Stable Patient Vitals for the past 8 hrs: BP Heart Rate Resp Temp SpO2 05/12/14 2353 103/51 mmHg 84 BPM 20 36.4 ??C (97.5 ??F) 96 % Post- check: WNL IV / SL: IV to saline lock Staton/Void: Staton d/c'd - patient due to void at 9829-3629 Pain Medications: Given this shift - see MAR Feeding: breast-pumping did not want to pump overnight. Feeding assistance: Independent Special Social Circumstances: Discharge Education:Education initiated Certificate: Not completed Comments: Baby in NICU for hypoglycemia, initiated pumping on days/travis but pt did not wish to pump overnight. Pt EXHAUSTER on L&D. Discussed goals with number of times to baby in 24 hours. Up OOB independently and staton has been removed. No void yet. DTV at 1711-7481. Drinking and eating well. HS FS was 170. Pt on meds (labetelol) for chronic HTN. As well Seroquel, flexeril, neurontin, metformin, and insulin. Pt with fibromyalgia and previous psych issues x 2 suicide attempts with insulin. FS areQ ac and HS. Pain has been controlled with T/M/D 6 mg Q 4, as well as continued IV dialudid x 1-2 ashift. Tea Osuna RN 05/13/2014 5:13 * Plan of Care - Tea Osuna RN - 05/13/2014 0575 EST Problem: PAIN Goal: Patient???s pain/discomfort is manageable/tolerable Outcome: Not Met This Shift D: Pt has reported her pain at 6/10. Received IV dilaudid 6 mg x 1 overnight. PIV patent and left in for now. Has otherwise received t/m/d 6mg every four hours. Rates pain at 4-5/10 after pain medication. Pt up independently. Staton removed. DTV between 8-10 am. PP checks and vitals wnl. A: Continue to medicate as needed and for breakthrough pain. Encourage ambulation, and use of oral pain meds to manage pain. R: Stable PP, pain at 6/10- but states she has fibromyalgia and this is manageable. * Plan of Care - Harshil Olvera RN - 05/12/2014 0265 EST Problem: PAIN Goal: Patient???s pain/discomfort is manageable/tolerable Outcome: Ongoing Data: Pt s/p this morning @ 0832. Pain rated 6-7/10 at worst today. Action: Pain medications switched to Dilaudid, pt given 0.6 mg IV x2 this evening, pt also taking 6mg PO of dilaudid. See MAR. Response: Pt rates pain at best 3/10, pt states she is feeling much better. Tolerating ambulation and W/C ride to NICU well this shift. Harshil Olvera RN 05/12/2014 * Plan of Care - Lily Fang RN - 05/12/2014 1517 EST Post- Shift Note Maternal: Admit Date: 05/12/2014 Hospital Day: LOS: 0 days Date of Delivery: Information for the patient's : Cruz Crowley [[id number]] 05/12/2014 Time of Delivery: Information for the patient's : Cruz Crowley [[id number]] 0832 Type of Delivery: repeat section Rhogam Administration: Not given - order in chart Gestation (weeks): Information for the patient's : Cruz Crowley [[id number]] 36 06/05 Hepatitis B: Lab Results Component Value Date HEPBSAG Negative 10/06/2013 Hepatitis C: No results found for this basename: HEPCAB Rubella: Protected Anesthesia/Duramorph: Spinal Episiotomy/Laceration:None Vital signs: Stable Patient Vitals for the past 8 hrs: BP Heart Rate Resp Temp SpO2 05/12/14 1410 127/62 mmHg 90 BPM 20 36.2 ??C (97.2 ??F) 97 % 05/12/14 1310 137/64 mmHg 88 BPM 16 36.2 ??C (97.2 ??F) 97 % 05/12/14 1159 139/71 mmHg 80 BPM 18 36.7 ??C (98.1 ??F) - 05/12/14 1144 132/75 mmHg 96 BPM - - - 05/12/14 1100 134/77 mmHg 89 BPM 20 - - 05/12/14 1046 126/76 mmHg 105 BPM 18 - - 05/12/14 1035 137/78 mmHg 77 BPM 18 - - 05/12/14 1020 - - - 35.7 ??C (96.3 ??F) - 05/12/14 1015 126/86 mmHg 81 BPM 18 - - Post- check: WNL IV / SL: IV up and infusing Staton/Void: Staton in - Patent Pain Medications: Given this shift - see MAR Feeding: breast Feeding assistance: Occasional support Special Social Circumstances: Discharge Education:Education initiated Certificate: Not completed Comments: Received patient around 1230, settled into room and discussed order set w/patient. Baby in NICU for hypoglycemia, initiated pumping this shift. Discussed goals with number of times to baby in 24 hours. Not OOB yet but hopes to this evening as she has not been able to hold her baby yet andwould like to go see her in NICU. See previous JOAQUINA note for plan regarding urine output. D51/2 NS now infusing, plan to check urine output by 16:30 and notify HO of amount. Data: Action: Response: iLly Fang RN 05/12/2014 15:17 * Plan of Care - Lily Fang RN - 05/12/2014 1448 EST Problem: CARE Goal: Urine Output Is 30 ml/hour Or More Urinary Catheter is draining yellow urine 30 ML/hour or more. Outcome: Not Met This Shift D: Staton catheter draining alyse colored urine. Last emptied at 0950 for 125cc. Emptied at 1415 [id number], less than 30cc/hr. LR infusing at 75cc/hr along with 50cc/hr oxytocin. A: Dr Rudolph in room for rounds and aware. Encouraged po fluids. Plan to infuse D51/2 NS w/20 KCLupon completion of oxytocin PP order set. R: Will assess urine output in 2 hours and notify HO of result. * Brief Op Note - Khalida Quiñones MD - 05/12/2014 1012 EST Brief Operative Note Date: 05/12/2014 Attending: Khalida Quiñones MD School Childcare Attendant: Lilibeth Ontiveros MD Pre-op diagnosis: 1. IUP @ 36w2d 2. PPROM 3. NRFA 4. Desired repeat section 5. Desired permanent sterilization Post-op diagnosis: Same, delivered Procedure: Low transverse section via Pfannenstial incision, single layer uterine closure,right Maylard incision, bilateral tubal ligation Anesthesia: spinal Findings: 1. Dense adhesive tissue from the anterior uterus to the peritoneum/fascial layers. Adhesions of the superior uterus to the omentum 2. Liveborn female infant weighing 3487g, born at 8:32 with apgars of 5 and 7. 3. Normal appearing placenta, 3V cord 4. Normal appearing uterus, and ovaries. 5. Fallopian tubes identified by their fimbriated ends. Appeared normal prior to tubal ligation. 6. Oozing from the left rectus muscle interface with omentumprior to surgicel placement 7. Surgicel placed at the left rectus muscle and the right lateral aspect of the hysterotomy Blood loss: 750cc Fluids: 3200cc LR Urine output: 125cc Specimens: cord gases, placenta Drains/Packs/Foreign object retained: Staton Complications: none Condition: Stable Disposition: M7 then Shep 5 See dictated operative report for more details Attending attestation: I was present during the penaloza and critical portions of the procedure and agree with the resident's/fellow's note. Khalida Quiñones MD 05/12/2014 12:54 * Anesthesia Pre-amadou - Yves Carmonat - 05/12/2014 0950 EST Obstetric Anesthesia Consult Name: HILDA CROWLEY : 1975 Date: 05/12/2014 Age: 38 y.o. GA: 36w2d Screen Making Supervisor: Kristi Leblanc MD Obstetric History: 38 yo @ 36 + wks here for NST with recurrent decelerations on NST. OB team requesting emergent delivery. Obstetric History Complications during : Complicated By: Complicated by: chronic HTN, type 2 DM now taking insulin with No Known Allergies Anesthetic History: Anesthesia History Previous Patient or Family Problems with Anesthesia: None Airway Evaluation: Airway Evaluation Mallampati: 1 Mouth Opening: Normal Jaw Thrust: Normal Thyro-Mental Distance: Normal Neck Eval: ROM Normal Teeth: Normal Review of Systems: Smoker: No History of Respiratory Infections: No Asthma: Yes Hospitalized for Asthma: No Asthma Medications: Yes (last use months ago) Asthma Triggers: Cold Heart Murmur: No High Blood Pressure: Yes Onset of Hypertension: Prior to Angina/Palpitations: No Blood Vessel Disease: No Neurological Disease: No Muscular Degeneration: No Backpain/Neckpain: No Reflux/Heartburn/Hiatial Hernia: Yes GI Additional Info: Taking Medication;Able to Lie Flat;Controlled Liver Disease: No Thyroid Disease: No Kidney Disease: No Diabetes: Yes Onset of Diabetes: Type II Anemia: No Bleeding Disorders: No Previous Anesthesia for Childbirth: Yes Previous Types of Anesthesia: Spinal Infectious Disease: No Opioid Dependency: No Contact Lenses/Glasses: None Past Surgical History Procedure Laterality Date ??? Tonsillectomy 2000 ??? Cholecystectomy 11/25/2009 Dr. Mendez ??? section 1998,2008 times 2 ??? Hip arthroscopy 2013 Current Facility-Administered Medications Medication Route Frequency ??? acetaminophen (TYLENOL) tablet 650 mg oral PRN ??? acetaminophen (TYLENOL) tablet 650 mg oral PRN ??? atropine 0.1 mg/mL syringe 0.4 mg intravenous PRN ??? carboprost (HEMABATE) 250 mcg/mL intramuscular injection ??? carboprost (HEMABATE) intramuscular injection 250 mcg intramuscular PRN ??? ceFAZolin (ANCEF) syringe 2 g intravenous PRE-OP ONCE ??? ceFAZolin (ANCEF) syringe ??? cellulose, oxidized 2 x 14 (SURGICEL) 2 X 14 pad pad ??? dextrose 50 % solution 12.5 g intravenous PRN ??? fentaNYL citrate (PF) 50 mcg/mL injection 25-100 mcg intravenous Q5 MINUTES PRN ??? gabapentin (NEURONTIN) capsule 1,500 mg oral DAILY ??? glucagon (human recombinant) injection 1 mg intramuscular PRN ??? HYDROmorphone (PF) (DILAUDID) 1 mg/mL injection 0.2 mg intravenous Q10 MINUTES PRN ??? ibuprofen (MOTRIN) tablet 400 mg oral PRN ??? labetalol (NORMODYNE) tablet 200 mg oral Q12H ??? lactated ringers (LR) infusion intravenous CONTINUOUS ??? lactated ringers BOLUS 500 mL intravenous Now ??? methylergonovine (METHERGINE) 0.2 mg/mL (1 mL) injection ??? methylergonovine (METHERGINE) injection 200 mcg intramuscular PRN ??? misoprostol (CYTOTEC) 200 mcg tablet ??? misoprostol (CYTOTEC) tablet 200 mcg buccal PRN ??? misoprostol (CYTOTEC) tablet 800 mcg rectal PRN ??? nalOXone (NARCAN) injection 0.2 mg intravenous PRN ??? ondansetron (PF) (ZOFRAN) injection 2 mg intravenous PRN ??? oxyCODONE (ROXICODONE) immediate release tablet 5-10 mg oral PRN ??? oxytocin in lactated ringers 30 unit/500 mL infusion solution ??? oxytocin in lactated ringers 30 units/500 ml intravenous ONCE And ??? oxytocin in lactated ringers 30 units/500 ml intravenous ONCE ??? QUEtiapine (SEROQUEL) tablet 200 mg oral BID No Facility-Administered Medications for the 05/12/14 encounter (Hospital Encounter) with Kristi Leblanc MD. No outpatient prescriptions have been marked as taking for the 05/12/14 encounter (Hospital Encounter) with Kristi Leblanc MD. Vital Signs: BP 130/67 Temp(Src) 35.3 ??C (95.5 ??F) (Tympanic) Resp 18 Ht 154 cm (60.63) Wt 90 kg (198lb 6.6 oz) BMI 37.95 kg/m2 LMP 08/31/2013 Labs: Lab Results Component Value Date WBC 18.81* 05/12/2014 HGB 12.6 05/12/2014 HCT 37.0 05/12/2014 MCV 93 05/12/2014 PLT 291 05/12/2014 NA 134* 12/31/2013 NA 139 01/29/2008 K 3.5 12/31/2013 K 4.6 01/29/2008 CL 102 12/31/2013 CL 102 01/29/2008 CO2 18* 12/31/2013 CO2 22* 01/29/2008 BUN 7* 04/23/2014 BUN 15 01/29/2008 CREATININE 0.58 04/30/2014 CREATININE 0.85 01/29/2008 Blood/Cultures: Recent Results (from the past 1008 hour(s)) TYPE AND SCREEN Collection Time 05/12/14 6:30 Result Value Range Status ABO A Final Rh Factor Negative Final Antibody Screen Negative Final GROUP B STREPTOCOCCUS MOLECULAR DETECTION Collection Time 04/25/14 11:33 Result Value Range Status Group B Streptococcus Molecular Detection No Group B beta streptococcal DNA detected by PCR. Final ASA Classification: Grade III E Plan: general, spinal mode(s) of anesthesia were discussed. Risks discussed included: Bleeding, Infection, Nerve Injury, Spinal headaches, low blood pressures with underperfusion, high spinals, hematomas, failure and replacement. All of Hilda Crowley's questions were answered to her satisfaction. Unless otherwise noted, follow standard anesthesia pre-operative protocol. Jennifer Carmona MD 05/12/2014 documented in this encounter Plan of Treatment Pending Results Name Type Priority Associated Diagnoses Date /Time LD US BPP WITHOUT NST Imaging Routine 7:30 EST Scheduled Orders Name Type Priority Associated Diagnoses Orde r Schedule SURGICAL PATHOLOGY- ORDER ONLY Pathology Routine One Time for 1 Occurrences starting 05/12/2014 until 05/12/2014 Scheduled Referrals Name Type Priority Associated Diagnoses Order Schedule PROVIDER FOLLOW-UP INSTRUCTIONS Outpatient Referral Routine Ordered: 05/16/2014 documented as of this encounter Goals Goal Patient Goal Type Associated Problems Recent Progress Patient-Stated? Author HEMOGLOBIN A1C < 7.0 Result Component Type 2 diabetes mellitus ([facility]) 8.7(07/07/2015 5:05 EST) No Annmarie Vigil documented as of this encounter Procedures Procedure Name Priority Date/Time Associated Diagnosis Comments TRANSFUSION RECORD - SCANNED 05/20/2014 13:59 EST GLUCOSE, GLUCOMETER Routine 05/16/2014 1 3:08 EST GLUCOSE, GLUCOMETER Routine 05/16/2014 7 :42 EST GLUCOSE, GLUCOMETER Routine 05/16/2014 1 :01 EST GLUCOSE, GLUCOMETER Routine 05/15/2014 1 9:13 EST GLUCOSE, GLUCOMETER Routine 05/15/2014 1 2:54 EST GLUCOSE, GLUCOMETER Routine 05/15/2014 6 :24 EST GLUCOSE, GLUCOMETER Routine 05/15/2014 0 :00 EST GLUCOSE, GLUCOMETER Routine 05/14/2014 2 1:34 EST GLUCOSE, GLUCOMETER Routine 05/14/2014 1 3:56 EST GLUCOSE, GLUCOMETER Routine 05/14/2014 6 :46 EST GLUCOSE, GLUCOMETER Routine 05/14/2014 0 :16 EST GLUCOSE, GLUCOMETER Routine 05/13/2014 2 1:40 EST GLUCOSE, GLUCOMETER Routine 05/13/2014 1 3:01 EST COMPLETE BLOOD COUNT Routine 05/13/2014 7:21 EST GLUCOSE, GLUCOMETER Routine 05/13/2014 7 :12 EST GLUCOSE, GLUCOMETER Routine 05/12/2014 2 3:49 EST GLUCOSE, GLUCOMETER Routine 05/12/2014 2 0:53 EST SURGICAL PATHOLOGY Routine 05/12/2014 19 :50 EST GLUCOSE, GLUCOMETER Routine 05/12/2014 1 3:26 EST POST RH IMMUNE GLOBULIN ( SCREEN TEST AND RHIG) Routine 05/12/2014 12:40 EST GLUCOSE, GLUCOMETER Routine 05/12/2014 1 1:12 EST COMPLETE BLOOD COUNT Routine 05/12/2014 8:40 EST BLOOD GASES, CORD VENOUS STAT 05/12/2014 8:36 EST BLOOD GASES, CORD ARTERIAL STAT 05/12/2014 8:35 EST URINALYSIS WITH MICROSCOPIC IF POSITIVE Routine 05/12/2014 8:12 EST UA REFLEX Routine 05/12/2014 8:12 EST URINE CULTURE IF POSITIVE Routine 05/12/2014 8:12 EST PROTEIN, TOTAL, RANDOM, URINE STAT 05/12/2014 8:12 EST CREATININE, URINE RANDOM STAT 05/12/2014 8:12 EST GLUCOSE, GLUCOMETER Routine 05/12/2014 7 :13 EST COMPLETE BLOOD COUNT STAT 05/12/2014 6:30 EST TYPE AND SCREEN STAT 05/12/2014 6:30 EST GLUCOSE, GLUCOMETER Routine 05/12/2014 5 :14 EST ADMINISTER RHOGAM (RHIG) 300 MCG Routine documented in this encounter Results * TRANSFUSION RECORD - SCANNED (05/20/2014 13:59 EST) 05/20/2014 13:5 9 EST Scan 2 Channel Lip Stiffener Insoles LAB INFO SERVICE AN D SUPPORT & PHONE RESULT * (ABNORMAL) GLUCOSE, GLUCOMETER (05/16/2014 13:08 EST) Glucose, Fingerstick 126(H) 70 - 100 mg/dl 05/16/2014 13:09 EST [facility] Supervisor Shipping [place] [id number] 05/16/2014 13:09 EST [facility] Comment:Test Performed by Nu ing Services BLOOD SPECIMEN / Unknown 05/16/2014 13:08 EST 05/16/2014 13:09 EST Kristi Leblanc MD CHEMISTRY & BLOOD GA S ORDERABLES Performing Organization Address [facility]/ZIP Co de Phone Number [facility] [address] [place] [address] * (ABNORMAL) GLUCOSE, GLUCOMETER (05/16/2014 7:42 EST) Glucose, Fingerstick 238(H) 70 - 100 mg/dl 05/16/2014 7:43 EST [facility] Supervisor Shipping ID [id number] 05/16/2014 7:43 EST [facility] Comment:Test Performed by Nu rsing Services BLOOD SPECIMEN / Unknown 05/16/2014 7:42 EST 05/16/2014 7:43 EST Kristi Leblanc MD CHEMISTRY & BLOOD GA S ORDERABLES Performing Organization Address [facility] Co de Phone Number [facility] [address] [place] [address] * (ABNORMAL) GLUCOSE, GLUCOMETER (05/16/2014 1:01 EST) Glucose, Fingerstick 171(H) 70 - 100 mg/dl 05/16/2014 1:03 EST [facility] Supervisor Shipping ID [id number] 05/16/2014 1:03 EST [facility] Comment:Test Performed by rsing Services BLOOD SPECIMEN / Unknown 05/16/2014 1:01 EST 05/16/2014 1:03 EST Kristi Leblanc MD CHEMISTRY & BLOOD GA S ORDERABLES Performing Organization Address [facility]/ZIP Co de Phone Number [facility] [address] [place] [address] * (ABNORMAL) GLUCOSE, GLUCOMETER (05/15/2014 19:13 EST) Glucose, Fingerstick 115(H) 70 - 100 mg/dl 05/15/2014 19:18 EST [facility] Supervisor Shipping ID [id number] 05/15/2014 19:18 EST [facility] Comment:Test Performed by rsing Services BLOOD SPECIMEN / Unknown 05/15/2014 19:13 EST 05/15/2014 19:18 EST Kristi Leblanc MD CHEMISTRY & BLOOD GA S ORDERABLES Performing Organization Address [facility] Co de Phone Number [facility] [address] [place] [address] * (ABNORMAL) GLUCOSE, GLUCOMETER (05/15/2014 12:54 EST) Glucose, Fingerstick 149(H) 70 - 100 mg/dl 05/15/2014 12:57 EST [facility] Supervisor Shipping ID [id number] 05/15/2014 12:57 EST [facility] Comment:Test Performed by Nu rsing Services BLOOD SPECIMEN / Unknown 05/15/2014 12:54 EST 05/15/2014 12:57 EST Kristi Leblanc MD CHEMISTRY & BLOOD GA S ORDERABLES Performing Organization Address [facility] Co de Phone Number [facility] [address] [place] [address] * (ABNORMAL) GLUCOSE, GLUCOMETER (05/15/2014 6:24 EST) Glucose, Fingerstick 218(H) 70 - 100 mg/dl 05/15/2014 6:26 EST [facility] Supervisor Shipping ID [id number] 05/15/2014 6:26 EST [facility] Comment:Test Performed by Nu rsing Services BLOOD SPECIMEN / Unknown 05/15/2014 6:24 EST 05/15/2014 6:26 EST Kristi Leblanc MD CHEMISTRY & BLOOD GA S ORDERABLES Performing Organization Address City/[facility]/ZIP Co de Phone Number [facility] [address] [place] [address] * (ABNORMAL) GLUCOSE, GLUCOMETER (05/15/2014 0:00 EST) Glucose, Fingerstick 201(H) 70 - 100 mg/dl 05/15/2014 0:02 EST [facility] Supervisor Shipping ID [id number] 05/15/2014 0:02 EST [facility] Comment:Test Performed by Nu rsing Services BLOOD SPECIMEN / Unknown 05/15/2014 05/15/2014 0:02 EST Kristi Leblanc MD CHEMISTRY & BLOOD GA S ORDERABLES Performing Organization Address [facility] Co de Phone Number [facility] [address] [place] [address] * (ABNORMAL) GLUCOSE, GLUCOMETER (05/14/2014 21:34 EST) Glucose, Fingerstick 148(H) 70 - 100 mg/dl 05/14/2014 21:57 EST [facility] Supervisor Shipping ID [id number] 05/14/2014 21:57 EST [facility] Comment:Test Performed by [facility] Services BLOOD SPECIMEN / Unknown 05/14/2014 21:34 EST 05/14/2014 21:57 EST Kristi Leblanc MD CHEMISTRY & BLOOD GA S ORDERABLES Performing Organization Address [facility] Co de Phone Number [facility] [address] [place] [address] * (ABNORMAL) GLUCOSE, GLUCOMETER (05/14/2014 13:56 EST) Glucose, Fingerstick 125(H) 70 - 100 mg/dl 05/14/2014 14:01 EST [facility] Supervisor Shipping ID [id number] 05/14/2014 14:01 EST [facility] Comment:Test Performed by [facility] Services BLOOD SPECIMEN / Unknown 05/14/2014 13:56 EST 05/14/2014 14:01 EST Kristi Leblanc MD CHEMISTRY & BLOOD GA S ORDERABLES Performing Organization Address [facility]/ZIP Co de Phone Number [facility] [address] [place] [address] * (ABNORMAL) GLUCOSE, GLUCOMETER (05/14/2014 6:46 EST) Glucose, Fingerstick 202(H) 70 - 100 mg/dl 05/14/2014 7:00 EST [facility] Supervisor Shipping ID [id number] 05/14/2014 7:00 EST [facility] Comment:Test Performed by Nu rsing Services BLOOD SPECIMEN / Unknown 05/14/2014 6:46 EST 05/14/2014 7:00 EST Kristi Leblanc MD CHEMISTRY & BLOOD GA S ORDERABLES Performing Organization Address City/[facility]/ZIP Co de Phone Number [facility] [address] [place] [address] * (ABNORMAL) GLUCOSE, GLUCOMETER (05/14/2014 0:16 EST) Glucose, Fingerstick 259(H) 70 - 100 mg/dl 05/14/2014 0:28 EST [facility] Supervisor Shipping ID [id number] 05/14/2014 0:28 EST [facility] Comment:Test Performed by [facility] Services BLOOD SPECIMEN / Unknown 05/14/2014 0:16 EST 05/14/2014 0:28 EST Kristi Leblanc MD CHEMISTRY & BLOOD GA S ORDERABLES Performing Organization Address City/[facility]/ZIP Co de Phone Number [facility] [address] [place] [address] * (ABNORMAL) GLUCOSE, GLUCOMETER (05/13/2014 21:40 EST) Glucose, Fingerstick 157(H) 70 - 100 mg/dl 05/13/2014 21:53 EST [facility] Supervisor Shipping ID [id number] 05/13/2014 21:53 EST [facility] Comment:Test Performed by rsing Services BLOOD SPECIMEN / Unknown 05/13/2014 21:40 EST 05/13/2014 21:53 EST Kritsi Leblanc MD CHEMISTRY & BLOOD GA S ORDERABLES Performing Organization Address City/[facility]/ZIP Co de Phone Number [facility] [address] [place] [address] * (ABNORMAL) GLUCOSE, GLUCOMETER (05/13/2014 13:01 EST) Glucose, Fingerstick 219(H) 70 - 100 mg/dl 05/13/2014 13:03 [facility] Supervisor Shipping ID [id number] 05/13/2014 13:03 [facility] Comment:Test Performed by Nu biankaing Services BLOOD SPECIMEN / Unknown 05/13/2014 13:01 EST 05/13/2014 13:03 EST Kristi Leblanc MD CHEMISTRY & BLOOD GA S ORDERABLES Performing Organization Address City/State/[facility] Co de Phone Number [facility] [address] [place] [address] * (ABNORMAL) HEMAGRAM (05/13/2014 7:21 EST) WBC 19.21(H) 4.0 - 12.4 K/cmm 05/13/2014 7:57 [facility] RBC 3.79(L) 3.86 - 5.04 M/cmm 05/13/2014 7:57 [facility] Hemoglobin 12.1 11.6 - 15.2 gm/dl 05/13/2014 7:57 [facility] HCT 35.2 34.9 - 44.4 % 05/13/2014 7:57 [facility] MCV 93 81 - 98 fl 05/13/2014 7:57 [facility] MCH 31.8 26.7 - 33.3 pg 05/13/2014 7:57 [facility] MCHC 34.2 32.1 - 35.9 gm/dl 05/13/2014 7:57 [facility] RDW-CV 13.0 11.7 - 14.6 % 05/13/2014 7:57 [facility] RDW-SD 43.3 37.6 - 50.3 fl 05/13/2014 7:57 [facility] PLT 295 141 - 320 K/cmm 05/13/2014 7:57 [facility] MPV 8.6 7.5 - 11.2 fl 05/13/2014 7:57 [facility] Blood specimen (specimen) BLOOD SPECIMEN / Unknown 05/13/2014 7:21 EST 05/13/2014 7:39 EST Lilibeth Ontiveros MD HEMATOLOGY & PF4 ORD ERABLES Performing Organization Address [facility] Co de Phone Number [facility] [address] [place] [address] * (ABNORMAL) GLUCOSE, GLUCOMETER (05/13/2014 7:12 EST) Glucose, Fingerstick 150(H) 70 - 100 mg/dl 05/13/2014 8:26 EST [facility] Supervisor Shipping ID [id number] 05/13/2014 8:26 EST [facility] Comment:Test Performed by Nu rsing Services BLOOD SPECIMEN / Unknown 05/13/2014 7:12 EST 05/13/2014 8:26 EST Kristi Leblanc MD CHEMISTRY & BLOOD GA S ORDERABLES Performing Organization Address [facility] Co de Phone Number [facility] [address] [place] [address] * (ABNORMAL) GLUCOSE, GLUCOMETER (05/12/2014 23:49 EST) Glucose, Fingerstick 170(H) 70 - 100 mg/dl 05/12/2014 23:50 EST [facility] Supervisor Shipping ID [id number] 05/12/2014 23:50 EST [facility] Comment:Test Performed by Nu rsing Services BLOOD SPECIMEN / Unknown 05/12/2014 23:49 EST 05/12/2014 23:50 EST Kristi Leblanc MD CHEMISTRY & BLOOD GA S ORDERABLES Performing Organization Address [facility] Co de Phone Number [facility] [address] [place] [address] * (ABNORMAL) GLUCOSE, GLUCOMETER (05/12/2014 20:53 EST) Glucose, Fingerstick 148(H) 70 - 100 mg/dl 05/12/2014 20:55 EST [facility] Supervisor Shipping ID [id number] 05/12/2014 20:55 EST [facility] Comment:Test Performed by [facility] Services BLOOD SPECIMEN / Unknown 05/12/2014 20:53 EST 05/12/2014 20:55 EST Kristi Leblanc MD CHEMISTRY & BLOOD GA S ORDERABLES [facility] [address] [place] [address] * SURGICAL PATHOLOGY (05/12/2014 19:50 EST) Pathology Report: SURGICAL PATHOLOGY REPORT Reports generated via electronic interface contain original data; however they are lacking the format of the original report. Caution should be taken when reading/interpret ing unformatted reports. Name: ? HILDA CROWLEY ? Accession #: ? [id number] ? : ? 1975 (Age: 38) ??F ? Collect Date: ? 05/12/2014 ? Location: ? SB05 ? Receive Date: ? 05/12/2014 ? Provider: KRISTI LEBLANC MD Copy to: BHARGAV ONTIVEROS MD ? Final Pathologic Diagnosis: A. ??LATE THIRD TRIMESTER DALE PLACENTA: ?- membranes and umbilical cord with no abnormalities. ?- Placental disc, large for gestation, with villous immaturity and multiple intervillous thrombi. B. FALLOPIAN TUBE, RIGHT, SEGMENTAL RESECTION: ?- Full cross section with no abnormalities. C. FALLOPIAN TUBE, LEFT, SEGMENTAL RESECTION: ?- Full cross section with no abnormalities. Document reviewed and electronically signed by: APRIL DAVISON MD Report ??Date: 05/14/2014 17:30 By the signature above, the attending physician certifies that he/she has personally conducted a gross and/or microscopic examination of the described specimens and rendered or confirmed the above diagnosis. Specimen(s) Received: A. ??Placenta B. ??Right fallopian tube C. ??Left fallopian tube Clinical History: at 36w2d, S/P repeat section and tubal ligation for PPROM, c/b T2DM, CHTN Gross Description: A. ?Received fresh labelled with proper patient identification (initials W, J) is a dale placenta (19.5 x 18.0 x 3.7 cm) with attached umbilical cord (21.0 cm in length x 1.1 cm in diameter) and membranes as well as two detached segments of umbilical cord (4.0 cm in length x 1.2 cm in diameter and 25.0 cm in length x 1.3 cm in diameter). After the cord and membranes are removed, the ovoid placental disc weighs 836 g. ? The membranes are snowden-purple, translucent, focally edematous, and insert at the disc margin. The umbilical cord is white, shiny and coiled, with three vessels and several false knots, and inserts eccentrically, 2.5 cm from the nearest disc margin. The surface is blue-ramirez with large caliber arborizing vessels and a moderate amount of scattered subchorionic fibrin deposition. The maternal surface is red-brown with focal central disruption of the cotyledons, but the placental disc appears complete. Sectioning reveals a dark red spongy cut surface, with multiple central snowden to snowden-red firm nodules (0.8-2.6 cm in greatest dimension), which combined comprise less than 5% of the overall placental disc. ? Donation Worker sections are submitted as follows: BLOCK PENALOZA A1- ?? membrane rolls A2- ??attached and detached umbilical cord A3-A4- ??full thickness placental disc, bisected A5-A6- ??full thickness placental disc, bisected A7- ??placental disc nodules B. ?Received in normal saline labelled with proper patient identification (initials W, J) and segment of right fallopian tube is a tubular structure (2.6 cm in length and 0.6 cm in diameter). ??The serosal surface is pink-white and smooth. ??Sectioning reveals a central pinpoint lumen. ??Two procurement representative cross sections are submitted as B1. C. ?Received in normal saline labelled with proper patient identification (initials W, J) and segment of left fallopian tube is a tubular structure (1.8 cm in length and 0.6 cm in diameter). ??The serosal surface is pink-white and smooth. ??Sectioning reveals a central pinpoint lumen. ??Two procurement representative cross sections are submitted as C1. [place] 05/13/2014 09:09 AM End of Report [facility] 05/12/2014 19:5 0 EST 05/12/2014 19:50 EST Kristi Leblanc MD PATHOLOGY ORDERABLES Performing Organization Address [facility] Co de Phone Number [facility] [address] [place] [address] * (ABNORMAL) GLUCOSE, GLUCOMETER (05/12/2014 13:26 EST) Glucose, Fingerstick 104(H) 70 - 100 mg/dl 05/12/2014 13:30 EST [facility] Supervisor Shipping ID [id number] 05/12/2014 13:30 EST [facility] Comment:Test Performed by Nu ing Services BLOOD SPECIMEN / Unknown 05/12/2014 13:26 EST 05/12/2014 13:30 EST Kristi Leblanc MD CHEMISTRY & BLOOD GA S ORDERABLES Performing Organization Address [facility]/ZIP Co de Phone Number [facility] [address] [place] [address] * POST RH IMMUNE GLOBULIN ( SCREEN TEST AND RHIG) (05/12/2014 12:40 EST) Screen Test NEGATIVE [facility] Derivative Code Rh Immune Globulin 300 ug [facility] Lot Number [id number] [facility] Unit Status Transfuse [facility] Blood specimen (specimen) 05/12/2014 12:40 EST Lilibeth Ontiveros MD BLOOD BANK TESTS [facility] * (ABNORMAL) GLUCOSE, GLUCOMETER (05/12/2014 11:12 EST) Glucose, Fingerstick 143(H) 70 - 100 mg/dl 05/12/2014 11:14 EST [facility] Supervisor Shipping ID [id number] 05/12/2014 11:14 [facility] Comment:Test Performed by [facility] Services BLOOD SPECIMEN / Unknown 05/12/2014 11:12 EST 05/12/2014 11:14 EST Kristi Leblanc MD CHEMISTRY & BLOOD GA S ORDERABLES [facility] [address] [place] [address] * (ABNORMAL) HEMAGRAM (05/12/2014 8:40 EST) WBC 18.81(H) 4.0 - 12.4 K/cmm 05/12/2014 9:00 [facility] RBC 3.98 3.86 - 5.04 M/cmm 05/12/2014 9:00 [facility] Hemoglobin 12.6 11.6 - 15.2 gm/dl 05/12/2014 9:00 [facility] HCT 37.0 34.9 - 44.4 % 05/12/2014 9:00 [facility] MCV 93 81 - 98 fl 05/12/2014 9:00 [facility] MCH 31.6 26.7 - 33.3 pg 05/12/2014 9:00 [facility] MCHC 34.1 32.1 - 35.9 gm/dl 05/12/2014 9:00 [facility] RDW-CV 13.0 11.7 - 14.6 % 05/12/2014 9:00 [facility] RDW-SD 42.0 37.6 - 50.3 fl 05/12/2014 9:00 [facility] PLT 291 141 - 320 K/cmm 05/12/2014 9:00 [facility] MPV 8.4 7.5 - 11.2 fl 05/12/2014 9:00 [facility] Blood specimen (specimen) BLOOD SPECIMEN / Unknown 05/12/2014 8:40 EST 05/12/2014 8:56 EST Abbe Bryan MD HEMATOLOGY & PF4 ORD ERABLES [facility] [address] [place] [address] * (ABNORMAL) BLOOD GASES, CORD VENOUS (05/12/2014 8:36 EST) pH, Cord blood jesenia 7.25 7.25 - 7.45 05/12/2014 8:56 [facility] PCO2, Cord blood 58 mmHg 05/12/2014 8:56 [facility] PO2, Cord bld jesenia 20 17 - 41 mmHg 05/12/2014 8:56 [facility] tCO2, Cord blood 26(H) 14 - 22 mEq/L 05/12/2014 8:56 [facility] Base Deficit 3.7 05/12/2014 8:56 [facility] BLOOD SPECIMEN / Unknown 05/12/2014 8:36 EST 05/12/2014 8:45 EST Khalida Quiñones MD GEN LAB UNIT COLLECT ORDERABLES [facility] [address] [place] [address] * (ABNORMAL) BLOOD GASES, CORD ARTERIAL (05/12/2014 8:35 EST) pH, Cord blood art 7.16(L) 7.18 - 7.38 05/12/2014 9:06 [facility] PCO2, Cord blood 79 mmHg 05/12/2014 9:06 [facility] PO2, Cord bld art <10 6 - 30 mmHg 05/12/2014 9:06 EST [facility] Comment:Sample retested, res ult confirmed tCO2, Cord blood 30(H) 14 - 22 mEq/L 05/12/2014 9:06 [facility] Base Deficit 3.4 05/12/2014 9:06 EST [facility] Blood specimen (specimen) BLOOD SPECIMEN / Unknown 05/12/2014 8:35 EST 05/12/2014 8:45 EST Khalida Quiñones MD GEN LAB UNIT COLLECT ORDERABLES Performing Organization Address City/[facility]/ZIP Co de Phone Number [facility] [address] [place] [address] * UA REFLEX (05/12/2014 8:12 EST) UA Billing Microscopic not indicated. 05/12/2014 8:37 EST [facility] URINE / Unknown 05/12/2014 8 :12 EST 05/12/2014 8:29 EST Cecily Jolley MD URINALYSIS ORDERABLE S Performing Organization Address City/[facility] Co de Phone Number [facility] [address] [place] [address] * CREATININE, URINE RANDOM (05/12/2014 8:12 EST) Creatinine, Urn [place] 15.4 mg/dl 05/12/2014 8:55 EST [facility] Urine specimen (specimen) URINE / Unknown 05/12/2014 8:12 EST 05/12/2014 8:30 EST Cecily Jolley MD URINALYSIS ORDERABLE S Performing Organization Address [facility] Co de Phone Number [facility] [address] [place] [address] * TOTAL PROTEIN, URINE RANDOM (05/12/2014 8:12 EST) Tot Prot,Ur Random 10 mg/dl 05/12/2014 8:55 EST [facility] Urine specimen (specimen) URINE / Unknown 05/12/2014 8:12 EST 05/12/2014 8:30 EST Cecily Jolley MD URINALYSIS ORDERABLE S Performing Organization Address City/[facility]/ZIP Co de Phone Number [facility] [address] [place] [address] * URINE CULTURE IF UA POSITIVE - NON POCT URINALYSIS ONLY (05/12/2014 8:12 EST) Culture if Indicated Culture not indicated by urinalysis results. 05/12/2014 10:13 [facility] Urine specimen (specimen) TOPOGRAPHY UNKNOWN / Unknown 05/12/2014 8:12 EST 05/12/2014 8:29 EST Cecily Jolley MD MICROBIOLOGY - GENER AL ORDERABLES Performing Organization Address [facility] Co de Phone Number [facility] [address] [place] [address] * URINALYSIS (05/12/2014 8:12 EST) Color, UA Yellow 05/12/2014 8:37 [facility] Clarity, UA Clear 05/12/2014 8:37 [facility] Glucose, UA Neg Neg 05/12/2014 8:37 [facility] Bilirubin, UA Neg Neg 05/12/2014 8:37 [facility] Ketones, UA Neg Neg 05/12/2014 8:37 [facility] Specific [place], Urine <1.005 1.001 - 1.035 05/12/2014 8:37 [facility] Blood, UA Neg Neg 05/12/2014 8:37 [facility] pH, UA 6.0 4.6 - 8.0 05/12/2014 8:37 [facility] Protein, UA Neg Neg 05/12/2014 8:37 [facility] Urobilinogen, UA 0.2 0.2 - 1.0 E.U./dl 05/12/2014 8:37 [facility] Nitrite, UA Neg Neg 05/12/2014 8:37 EST [facility] Leuk Esterase Neg Neg 05/12/2014 8:37 EST [facility] Urine specimen (specimen) URINE / Unknown 05/12/2014 8:12 EST 05/12/2014 8:29 EST Cecily Jolley MD URINALYSIS ORDERABLE S Performing Organization Address [facility] Co de Phone Number [facility] [address] [place] [address] * (ABNORMAL) GLUCOSE, GLUCOMETER (05/12/2014 7:13 EST) Glucose, Fingerstick 114(H) 70 - 100 mg/dl 05/12/2014 7:17 EST [facility] [place] [id number] 05/12/2014 7:17 EST [facility] Comment:Test Performed by Nu rsing Services BLOOD SPECIMEN / Unknown 05/12/2014 7:13 EST 05/12/2014 7:17 EST Kristi Leblanc MD CHEMISTRY & BLOOD GA S ORDERABLES Performing Organization Address [facility] Co de Phone Number [facility] [address] [place] [address] * TYPE AND SCREEN (05/12/2014 6:30 EST) ABO A [facility] Rh Factor Negative [facility] Antibody Screen Negative [facility] Comment:SPECIMEN EXPIRES ON 05/15/14 23:59 Blood specimen (specimen) 05/12/2014 6:30 EST Hayley Stewart MD BLOOD BANK TESTS Performing Organization Address [facility] Co de Phone Number [facility] * HEMAGRAM (05/12/2014 6:30 EST) WBC Clotted 4.0 - 12.4 K/cmm 05/12/2014 8:04 EST [facility] Comment: Specimen unsuitable for analysis. Credit Issued RBC Clotted 3.86 - 5.04 M/cmm 05/12/2014 8:04 [facility] Comment: Specimen unsuitable for analysis. Credit Issued Hemoglobin Clotted 11.6 - 15.2 gm/dl 05/12/2014 8:04 [facility] Comment: Specimen unsuitable for analysis. Credit Issued HCT Clotted 34.9 - 44.4 % 05/12/2014 8:04 [facility] Comment: Specimen unsuitable for analysis. Credit Issued MCV Clotted 81 - 98 fl 05/12/2014 8:04 [facility] Comment: Specimen unsuitable for analysis. Credit Issued MCH Clotted 26.7 - 33.3 pg 05/12/2014 8:04 [facility] Comment: Specimen unsuitable for analysis. Credit Issued Hypochromia Clotted 05/12/2014 8:04 [facility] Comment: Specimen unsuitable for analysis. Credit Issued MCHC Clotted 32.1 - 35.9 gm/dl 05/12/2014 8:04 [facility] Comment: Specimen unsuitable for analysis. Credit Issued RDW-CV Clotted 11.7 - 14.6 % 05/12/2014 8:04 [facility] Comment: Specimen unsuitable for analysis. Credit Issued RDW-SD Clotted 37.6 - 50.3 fl 05/12/2014 8:04 [facility] Comment: Specimen unsuitable for analysis. Credit Issued Anisocytosis Clotted 05/12/2014 8:04 [facility] Comment: Specimen unsuitable for analysis. Credit Issued PLT Clotted 141 - 320 K/cmm 05/12/2014 8:04 [facility] Comment: Specimen unsuitable for analysis. Credit Issued MPV Clotted 7.5 - 11.2 fl 05/12/2014 8:04 [facility] Comment: Specimen unsuitable for analysis. Credit Issued Condition Clotted 05/12/2014 8:04 [facility] Comment: Specimen unsuitable for analysis. Credit Issued Blood specimen (specimen) BLOOD SPECIMEN / Unknown 05/12/2014 6:30 EST 05/12/2014 7:43 EST Hayley Stewart MD HEMATOLOGY & PF4 O RDERABLES Performing Organization Address [facility] Co de Phone Number [facility] [address] [place] [address] * (ABNORMAL) GLUCOSE, GLUCOMETER (05/12/2014 5:14 EST) Glucose, Fingerstick 127(H) 70 - 100 mg/dl 05/12/2014 5:15 EST [facility] Supervisor Shipping ID [id number] 05/12/2014 5:15 EST [facility] Comment:Test Performed by [facility] Services BLOOD SPECIMEN / Unknown 05/12/2014 5:14 EST 05/12/2014 5:15 EST Kristi Leblanc MD CHEMISTRY & BLOOD GA S ORDERABLES Performing Organization Address [facility] Co de Phone Number [facility] [address] [place] [address] documented in this encounter Visit Diagnoses Diagnosis Routine history and physical examination of adult- Primary Routine general medical examination at a health care facility Routine history and physical examination of adult Routine general medical examination at a health care facility Type 2 diabetes mellitus ([facility]) Type II or unspecified type diabetes mellitus without mention of complication, not stated as uncontrolled Chronic hypertension with exacerbation during in third trimester Diabetes mellitus, antepartum(648.03) Diabetes mellitus, antepartum Supervision of high-risk of elderly multigravida Non-reassuring heart rate or rhythm affecting mother Abnormality in heart rate/rhythm, unspecified as to episode of care or not applicable Fasting hyperglycemia Impaired fasting glucose Type 2 diabetes mellitus ([facility]) Type II or unspecified type diabetes mellitus without mention of complication, not stated as uncontrolled Supervision of high-risk of elderly multigravida documented in this encounter Administered Medications Inactive Administered Medications - up to 3 most recent administrations Medication Order MAR Action Action Date Dose Rate Site acetaminophen (TYLENOL) tablet 325-650 mg 325-650 mg, oral, EVERY 4 HOURS, 12 doses, First dose on Sat05/12/14 at 1300, Last dose on Sat05/14/14 at 0800, Routine, On Unit Given 05/14/2014 11:22 EST 650 mg Given 05/14/2014 6:24 EST 650 mg Given 05/14/2014 1:57 EST 650 mg acetaminophen (TYLENOL) tablet 325-650 mg 325-650 mg, oral, EVERY 4 HOURS PRN, Starting on Sat05/14/14 at 0000, Until Sat05/16/14 at 2007, Pain, Routine, On Unit Given 05/16/2014 14:44 EST 650 mg Given 05/16/2014 11:05 EST 650 mg Given 05/16/2014 6:37 EST 650 mg acetaminophen (TYLENOL) tablet 650 mg 650 mg, oral, PRN, Starting on Sat05/12/14 at 0737, Until Sat05/12/14 at 1236, Pain, , Routine Given 05/12/2014 10:16 EST 650 mg ceFAZolin (ANCEF) syringe 2 g 2 g, intravenous, Administer over 10 Minutes, PRE-OP ONCE, 1 dose, On Sat05/12/14 at 0800, STAT Given 05/12/2014 8:10 EST 2 g ceFAZolin (ANCEF) syringe 1 dose, Starting on Sat05/12/14 at 0736, Until Sat05/12/14 at 0820 cyclobenzaprine (FLEXERIL) tablet 10 mg 10 mg, oral, DAILY BEFORE BREAKFAST, First dose on Sat05/13/14 at 0700, Until Discontinued, Routine Given 05/16/2014 7:52 EST 10 mg Given 05/15/2014 7:25 EST 10 mg Given 05/14/2014 6:43 EST 10 mg cyclobenzaprine (FLEXERIL) tablet 20 mg 20 mg, oral, AT BEDTIME, First dose on Sat05/12/14 at 2245, Until Discontinued, Routine Given 05/15/2014 21:32 EST 2 0 mg Given 05/14/2014 21:46 EST 20 mg Given 05/13/2014 21:48 EST 20 mg dexmethylphenidate (FOCALIN XR) multiphase capsule capsule,ER biphasic 50-50 10 mg 10 mg, oral, 3 TIMES DAILY, First dose (after last reorder) on Sat05/13/14 at 1700, Until Discontinued Given 05/16/2014 14:45 EST 10 mg Given 05/16/2014 7:52 EST 10 mg Given 05/15/2014 13:58 EST 10 mg dextrose 5 % and 0.45 % NaCl with KCl 20 mEq/L infusion at 100 mL/hr, intravenous, CONTINUOUS, Starting on Sat05/12/14 at 1300, Until Edwina 05/13/14 at 1208, Routine, On Unit New Bag 05/12/2014 15:09 EST 100 mL/hr docusate sodium (COLACE) capsule 100 mg 100 mg, oral, 2 TIMES DAILY PRN, Starting on Sat05/12/14 at 1236, Until Sat05/16/14 at 2006, Constipation, Routine, On Unit Given 05/16/2014 9:07 EST 100 mg Given 05/15/2014 16:15 EST 100 mg Given 05/15/2014 10:31 EST 100 mg gabapentin (NEURONTIN) capsule 1,500 mg 1,500 mg, oral, DAILY, First dose on Sat05/12/14 at 0900, Until Discontinued Given 05/12/2014 21:05 EST 1,500 mg gabapentin (NEURONTIN) capsule 1,500 mg 1,500 mg, oral, AT BEDTIME, First dose (after last modification) on Edwina 05/13/14 at 2100, Until Discontinued Given 05/15/2014 21:33 EST 1,500 mg Given 05/14/2014 21:43 EST 1,500 mg Given 05/13/2014 21:48 EST 1,500 mg HYDROmorphone (DILAUDID) tablet 2-6 mg 2-6 mg, oral, EVERY 4 HOURS PRN, Starting on Sat05/12/14 at 1702, Until Sat05/16/14 at 2006, Pain, Routine Given 05/16/2014 14:44 EST 6 mg Given 05/16/2014 11:05 EST 6 mg Given 05/16/2014 6:37 EST 6 mg HYDROmorphone (PF) (DILAUDID) 1 mg/mL injection 0.2 mg 0.2 mg, intravenous, EVERY 10 MINUTES PRN, Starting on Sat05/12/14 at 0913, Until Sat05/12/14 at 1233, Pain, Routine, Recovery (only) Given 05/12/2014 1 2:09 EST 0.6 mg HYDROmorphone (PF) (DILAUDID) 1 mg/mL injection 0.2-0.6 mg 0.2-0.6 mg, intravenous, EVERY 4 HOURS PRN, Starting on Sat05/12/14 at 1703, Until Sat05/16/14 at 2006, Pain, Routine Given 05/13/2014 3:24 EST 0.6 mg Given 05/12/2014 21:29 EST 0.6 mg Given 05/12/2014 17:19 EST 0.6 mg ibuprofen (MOTRIN) tablet 400 mg 400 mg, oral, EVERY 4 HOURS, 12 doses, First dose on Sat05/12/14 at 1300, Last dose on Sat05/14/14 at 0800, Routine, On Unit Given 05/14/2014 11:22 EST 400 mg Given 05/14/2014 6:24 EST 400 mg Given 05/14/2014 1:57 EST 400 mg ibuprofen (MOTRIN) tablet 400 mg 400 mg, oral, EVERY 4 HOURS PRN, Starting on Sat05/14/14 at 0000, Until Sat05/16/14 at 2007, Pain, Routine, On Unit Given 05/16/2014 14:44 EST 400 mg Given 05/16/2014 11:05 EST 400 mg Given 05/16/2014 6:37 EST 400 mg insulin aspart (NOVOLOG FLEXPEN) injection 4 Units 4 Units, subcutaneous, NOW X1, 1 dose, On Sat05/14/14 at 0130, Routine Given 05/14/2014 1:16 EST 4 Units insulin aspart (NOVOLOG FLEXPEN) injection subcutaneous, 3 TIMES DAILY WITH MEALS, First dose on Sat05/12/14 at 1315, Until Discontinued, Routine Given 05/16/2014 7:50 EST 3 Units Given 05/15/2014 13:01 EST 1 Units Given 05/15/2014 6:30 EST 3 Units labetalol (NORMODYNE) tablet 200 mg 200 mg, oral, EVERY 12 HOURS, First dose (after last modification) on Sat05/12/14 at 2100, Until Discontinued, Routine Given 05/15/2014 21:32 EST 200 mg Given 05/15/2014 8:45 EST 200 mg Given 05/14/2014 21:53 EST 200 mg lactated ringers (LR) infusion at 150-200 mL/hr, intravenous, CONTINUOUS, Starting on Sat05/12/14 at 0615, Until Sat05/12/14 at 1236, Routine New Bag 05/12/2014 6:35 EST 999 mL/hr lactated ringers (LR) infusion 75 mL/hr, intravenous, CONTINUOUS, Starting on Sat05/12/14 at 1300, Until Edwina 05/13/14 at 1207, Routine, On Unit Rate Documented 05/12/2014 13:00 EST 75 mL/hr 75 mL/hr lactated ringers BOLUS 500 mL 500 mL, intravenous, NOW X1, 1 dose, On Sat05/12/14 at 0800, STAT Given 05/12/2014 7:50 EST 500 mL IV metFORMIN (GLUCOPHAGE) tablet 1,000 mg 1,000 mg, oral, 2 TIMES DAILY WITH BREAKFAST & DINNER, First dose on Sat05/12/14 at 1700, Until Discontinued, Routine Given 05/16/2014 7:52 EST 1,000 mg Given 05/15/2014 17:51 EST 1,000 mg Given 05/15/2014 8:42 EST 1,000 mg morphine injection 5 mg 5 mg, intravenous, EVERY 2 HOURS PRN, Starting on Sat05/12/14 at 1236, Until Sat05/12/14 at 1704, Severe pain, Routine, On Unit Given 05/12/2014 15:41 EST 5 mg multivitamin vit-iron fumarate-FA (STUARTNATAL) 27 mg iron- 1 mg tablet 1 Tab 1 Tablet, oral, DAILY, First dose on Sat05/12/14 at 1300, Until Discontinued, Routine, On Unit Given 05/16/2014 9:07 EST 1 Tablet Given 05/15/2014 10:31 EST 1 Tablet Given 05/14/2014 8:24 EST 1 Tablet oxyCODONE (ROXICODONE) immediate release tablet 5-10 mg 5-10 mg, oral, PRN, 2 doses, Starting on Sat05/12/14 at 0913, Until Sat05/12/14 at 1233, Pain, Routine, Recovery (only) Given 05/12/2014 10:16 EST 10 mg oxyCODONE (ROXICODONE) immediate release tablet 5-10 mg 5-10 mg, oral, EVERY 4 HOURS PRN, Starting on Sat05/12/14 at 1236, Until Sat05/12/14 at 1704, Pain, Routine, On Unit Given 05/12/2014 14:12 EST 10 mg oxytocin in lactated ringers 30 unit/500 mL infusion solution 1 dose, Starting on Sat05/12/14 at 0752, Until Sat05/12/14 at 0833 oxytocin in lactated ringers 30 units/500 ml 200 mL/hr, intravenous, Once (Without Time Specified), 1 dose, Starting on Sat05/12/14 at 0737, Until Sat05/12/14 at 0833, Routine Given 05/12/2014 8:33 EST 200 mL/hr 200 mL/hr oxytocin in lactated ringers 30 units/500 ml 135 mL/hr, intravenous, Once (Without Time Specified), 1 dose, Starting on Sat05/12/14 at 0737, Until Sat05/12/14 at 0954, Routine Given by Other 05/12/2014 9:54 EST 8.1 Units/hr 135 mL/hr oxytocin in lactated ringers 30 units/500 ml 50 mL/hr, intravenous, CONTINUOUS, Starting on Sat05/12/14 at 1300, Until Sat05/12/14 at 1634, Routine, On Unit New Bag 05/12/2014 12:35 EST 50 mL/hr 50 mL/hr QUEtiapine (SEROQUEL) tablet 200 mg 200 mg, oral, 2 TIMES DAILY, First dose on Sat05/12/14 at 0900, Until Discontinued, Routine Given 05/12/2014 21:03 EST 200 mg QUEtiapine (SEROQUEL) tablet 200 mg 200 mg, oral, AT BEDTIME, First dose (after last modification) on Edwina 05/13/14 at 2100, Until Discontinued, Routine Given 05/16/2014 0:58 EST 200 mg Given 05/14/2014 21:44 EST 200 mg Given 05/14/2014 0:21 EST 200 mg sitaGLIPtin (JANUVIA) tablet 100 mg 100 mg, oral, DAILY, First dose on Sat05/14/14 at 1345, Until Discontinued, Routine Given 05/15/2014 8:43 EST 100 mg Given 05/14/2014 15:36 EST 100 mg sodium citrate-citric acid (BICITRA) 500-334 mg/5 mL solution 30 mL 30 mL, oral, NOW X1, 1 dose, On Sat05/12/14 at 0800, STAT Given 05/12/2014 7:47 EST 30 mL sodium citrate-citric acid (BICITRA) 500-334 mg/5 mL solution 1 dose, Starting on Sat05/12/14 at 0736, Until Sat05/12/14 at 0747 Additional Administered Medications Medication Order MAR Action Action Date Dose Rate Site Rho(D) Immune Globulin IM Intramuscular Given 05/13/2014 300 ug Left Gluteus Medius/Ventrogluteal documented in this encounter Discontinued Medications Medication Sig Discontinue Reason Start Date End Da te glimepiride (AMARYL) 4 mg tablet Take 1 Tab by mouth daily. 05/16/2014 05/16/2014 acetaminophen (TYLENOL) 325 mg tablet Take 2 Tabs by mouth every 4 hours as needed for Pain. 04/27/2014 05/16/2014 insulin aspart (NOVOLOG FLEXPEN) 100 unit/mL injectable pen Inject 15 Units into the skin 3 times daily with meals. 04/27/2014 05/16/2014 insulin glargine (LANTUS SOLOSTAR) 100 unit/mL (3 mL) injection pen Inject 20 Units into the skin once daily. 04/27/2014 05/16/2014 insulin pen needles 31G x 5/16 BD UltraFine Short. Will be using 4 pen needles per day at this point.. 04/27/2014 05/16/2014 labetalol (NORMODYNE) 200 mg tablet Take 1 Tab by mouth every 12 hours. 04/27/2014 05/16/2014 documented as of this encounter Active and Recently Administered Medications Times are shown in EST. Scheduled Medication Order 05/14/2014 05/15/2014 05/16/2014 acetaminophen (TYLENOL) tablet 325-650 mg () 325-650 mg, oral, EVERY 4 HOURS, 12 doses, First dose on Sat05/12/14 at 1300, Last dose on Sat05/14/14 at 0800, Routine, On Unit 0157 (Given - Provider: Leyda Shelby LPN)0624 (Given - Provider: Leyda Shelby LPN)1122 (Given - Provider: Rachael Bowles RN) cyclobenzaprine (FLEXERIL) tablet 10 mg (CANCELED) 10 mg, oral, DAILY BEFORE BREAKFAST, First dose on Sat05/13/14 at 0700, Until Discontinued, Routine 0643 (Given - Provider: Leyda Shelby LPN) 0725 (Given - Provider: Gabriela Dyer RN) 0752 (Given - Provider: Jackie Martínez RN) cyclobenzaprine (FLEXERIL) tablet 20 mg (CANCELED) 20 mg, oral, AT BEDTIME, First dose on Sat05/12/14 at 2245, Until Discontinued, Routine 2146 (Given - Provider: Gabriela Dyer RN) 2131 (Given - Provider: Harshil Olvera, PRISCILA) dexmethylphenidate (FOCALIN XR) multiphase capsule capsule,ER biphasic 50-50 10 mg (CANCELED) 10 mg, oral, 3 TIMES DAILY, First dose (after last reorder) on Edwina 05/13/14 at 1700, Until Discontinued 06 (Given - Provider: Leyda Shelby LPN)1131 (Given - Provider: Rachael Bowles RN)1656 (Given - Provider: Steph Chavez RN) 0618 (Not Given - Provider: Gabriela Dyer RN - Reason: Patient/family refused - Comment: pt usually takes it at 0900)0841 (Given - Provider: Jackie Martínez RN)1358 (Given - Provider: Rebecca Chavez RN)2100 (Due - Provider: Mirian Cisneros [facility]) 0752 (Given - Provider: Jackie Martínez RN)1445 (Given - Provider: Jackie Martínez RN) gabapentin (NEURONTIN) capsule 1,500 mg (CANCELED) 1,500 mg, oral, AT BEDTIME, First dose (after last modification) on Edwina 05/13/14 at 2100, Until Discontinued 2142 (Given - Provider: Gabriela Dyer RN) 2132 (Given - Provider: Harshil Olvera RN) ibuprofen (MOTRIN) tablet 400 mg () 400 mg, oral, EVERY 4 HOURS, 12 doses, First dose on Sat05/12/14 at 1300, Last dose on Sat05/14/14 at 0800, Routine, On Unit 0157 (Given - Provider: Leyda Shelby LPN)0624 (Given - Provider: Leyda Shelby LPN)1122 (Given - Provider: Rachael Bowles RN) insulin aspart (NOVOLOG FLEXPEN) injection 4 Units (COMPLETED) 4 Units, subcutaneous, NOW X1, 1 dose, On Sat05/14/14 at 0130, Routine 0116 (Given - Provider: Leyda Shelby LPN) insulin aspart (NOVOLOG FLEXPEN) injection (CANCELED) subcutaneous, 3 TIMES DAILY WITH MEALS, First dose on Sat05/12/14 at 1315, Until Discontinued, Routine 0653 (Given - Provider: Leyda Shelby LPN)0800 (Canceled Entry - Provider: Rachael Bowles RN - Comment: already given)1358 (Not Given - Provider: Rachael Bowles RN - Reason: Order parameters not met)191 (Hold - Provider: Harshil Olvera RN - Reason: Other - Comment: will give with dinner)2136 (Given - Provider: Gabriela Dyer RN - Comment: [id number]) 0630 (Given - Provider: Gabriela Dyer RN - Comment: pt already redered her meal. [id number])0811 (Canceled Entry - Provider: Jackie Martínez RN - Comment: Insulin was given @ 0630 with breakfast)1301 (Given - Provider: Rebecca Chavez RN)1700 (Not Given - Provider: Maria Eugenia Gómez RN - Reason: Other - Comment: not eat yet)1915 (Not Given - Provider: Maria Eugenia Gómez RN - Reason: Other - Comment: chem 115) 0750 (Given - Provider: Jackie Martínez RN - Comment: Pt self administered in left side of abdomen)1311 (Not Given - Provider: Maria Eugenia Gómez RN - Reason: Other - Comment: not eat till now, ac chem 126 so no insulin now)1700 (Due) labetalol (NORMODYNE) tablet 200 mg 200 mg, oral, EVERY 12 HOURS, First dose (after last modification) on Sat05/12/14 at 2100, Until Discontinued, Routine 0926 (Given - Provider: Rachael Bowles RN)2152 (Given - Provider: Gabriela Dyer RN) 0845 (Given - Provider: Jackie Martínez, PRISCILA)213 (Given - Provider: Harshil Olvera RN) 09 (Hold - Provider: Jackie Martínez RN - Reason: Order parameters not met) metFORMIN (GLUCOPHAGE) tablet 1,000 mg 1,000 mg, oral, 2 TIMES DAILY WITH BREAKFAST & DINNER, First dose on Sat05/12/14 at 1700, Until Discontinued, Routine 0824 (Given - Provider: Rachael Bowles RN)191 (Hold - Provider: Harshil Olvera RN - Reason: Other - Comment: will give with dinner)2142 (Given - Provider: Gabriela Dyer, PRISCILA) 0842 (Given - Provider: Jackie Martínez RN)1751 (Given - Provider: Maria Eugenia Gómez RN) 0752 (Given - Provider: Jackie Martínez RN)1700 (Due) multivitamin vit-iron fumarate-FA (STUARTNATAL) 27 mg iron- 1 mg tablet 1 Tab (CANCELED) 1 Tablet, oral, DAILY, First dose on Sat05/12/14 at 1300, Until Discontinued, Routine, On Unit 0824 (Given - Provider: Rachael Bowles RN) 1031 (Given - Provider: Jcakie Martínez RN) 0907 (Given - Provider: Jackie Martínez RN) QUEtiapine (SEROQUEL) tablet 200 mg (CANCELED) 200 mg, oral, AT BEDTIME, First dose (after last modification) on Edwina 05/13/14 at 2100, Until Discontinued, Routine 0021 (Given - Provider: Leyda Shelby LPN)2144 (Given - Provider: Gabriela Dyer RN) 0058 (Given - Provider: Talat Laws RN) sitaGLIPtin (JANUVIA) tablet 100 mg (CANCELED) 100 mg, oral, DAILY, First dose on Sat05/14/14 at 1345, Until Discontinued, Routine 1536 (Given - Provider: Rachael Bowles RN) 0843 (Given - Provider: Jackie Martínez RN) 0856 (Hold - Provider: Jackie Martínez RN - Reason: Other - Comment: Per Dr. Dominguez's request from endocrine. Dr Dominguez states she will get resident to write order changes.) Continuous Medication Order 05/14/2014 05/15/2014 05/16/2014 oxytocin in lactated ringers 30 units/500 ml 50 mL/hr, intravenous, CONTINUOUS, Starting on Sat05/12/14 at 1300, Until Sat05/12/14 at 1634, Routine, On Unit PRN Medication Order 05/14/2014 05/15/2014 05/16/2014 acetaminophen (TYLENOL) tablet 325-650 mg 325-650 mg, oral, EVERY 4 HOURS PRN, Starting on Sat05/14/14 at 0000, Until 05/16/14 at 2006, Pain, Routine, On Unit 1501 (Given - Provider: Rachael Bowles RN)2146 (Given - Provider: Gabriela Dyer RN) 0616 (Given - Provider: Gabriela Dyer RN)1031 (Given - Provider: Jackie Martínez, PRISCILA)1615 (Given - Provider: Maria Eugenia Gómez RN)213 (Given - Provider: Harshil Olvera RN) 0147 (Given - Provider: Talat Laws RN)0637 (Given - Provider: Talat Laws RN)1105 (Given - Provider: Jackie Martínez, RN)1444 (Given - Provider: Jackie Martínez RN) docusate sodium (COLACE) capsule 100 mg (CANCELED) 100 mg, oral, 2 TIMES DAILY PRN, Starting on Sat05/12/14 at 1236, Until 05/16/14 at 2006, Constipation, Routine, On Unit 0824 (Given - Provider: Rachael Bowles RN) 103 (Given - Provider: Jackie Martínez RN)1615 (Given - Provider: Maria Eugenia Gómez, PRISCILA) 0907 (Given - Provider: Jackie Martínez RN) HYDROmorphone (DILAUDID) tablet 2-6 mg 2-6 mg, oral, EVERY 4 HOURS PRN, Starting on Sat05/12/14 at 1702, Until 05/16/14 at 2006, Pain, Routine 0157 (Given - Provider: Leyda Shelby LPN)0625 (Given - Provider: Leyda Sehlby LPN)1122 (Given - Provider: Rachael Bowles RN)1501 (Given - Provider: Rachael Bowles RN)2146 (Given - Provider: Gabriela Dyer RN) 0616 (Given - Provider: Gabriela Dyer RN)1031 (Given - Provider: Jackie Martínez RN)1614 (Given - Provider: Maria Eugenia Gómez RN)2133 (Given - Provider: Harshil Olvera RN)2139 (Given - Provider: Harshil Olvera RN) 0147 (Given - Provider: Talat Laws RN)0637 (Given - Provider: Talat Laws RN)1105 (Given - Provider: Jackie Martínez, PRISCILA)1444 (Given - Provider: Jackie Martínez, PRISCILA) ibuprofen (MOTRIN) tablet 400 mg 400 mg, oral, EVERY 4 HOURS PRN, Starting on 05/14/14 at 0000, Until 05/16/14 at 2007, Pain, Routine, On Unit 1501 (Given - Provider: Rachael Bowles RN)2146 (Given - Provider: Gabriela Dyer, PRISCILA) 0616 (Given - Provider: Gabriela Dyer, PRISCILA)1031 (Given - Provider: Jackie Martínez, PRISCILA)1615 (Given - Provider: Maria Eugenia Gómez RN)2133 (Given - Provider: Harshil Olvera RN) 0147 (Given - Provider: Talat Laws RN)0637 (Given - Provider: Talat Laws RN)1105 (Given - Provider: Jackie Martínez RN)1444 (Given - Provider: Jackie Martínez RN) documented in this encounter Orders Medications Ordered That Russel ht Not Have Been Administered Count Last Ordered Date First Ordered Date insulin aspart (NOVOLOG FLEX PEN) injection 4 Units 1 05/14/2014 dexmethylphenidate (FOCALIN XR) multiphase capsule capsule,ER biphasic 50-50 10 mg 1 05/13/2014 acetaminophen (TYLENOL) tablet 650 mg 1 atropine 0.1 mg/mL syringe 0.4 mg 1 015 bisacodyl (DULCOLAX) suppository 10 mg 1 calcium carbonate (TUMS) 200 mg calcium (500 mg) per chewable tablet tablet,chewable 1-2 Tab 1 05/12/2014 carboprost (HEMABATE) 250 mc g/mL intramuscular injection 1 05/12/2014 carboprost (HEMABATE) intram uscular injection 250 mcg 1 05/12/2014 cellulose, oxidized 2 x 14 (SURGICEL) 2 X 14 pad pad 1 05/12/2014 dextrose 50 % solution 12.5 g 2 05/12/2014 fentaNYL citrate (PF) 50 mcg /mL injection 25-100 mcg 1 05/12/2014 glucagon (human recombinant) injection 1 mg 2 05/12/2014 ibuprofen (MOTRIN) tablet 400 mg 1 05/12/19 15 insulin aspart (NOVOLOG FLEX PEN) injection 15 Units 1 05/12/2014 insulin glargine (LANTUS INOCENTE OSTAR) injection pen 35 Units 1 05/12/2014 insulin regular (HUMULIN R,N OVOLIN R) injection 1 05/12/2014 labetalol (NORMODYNE) tablet 200 mg 2 05/12 lansinoh HPA lanolin 1 05/12/2014 magnesium hydroxide (MILK OF MAGNESIA) 400 mg/5 mL suspension 30 mL 1 05/12/2014 methylergonovine (METHERGINE ) 0.2 mg/mL (1 mL) injection 1 05/12/2014 methylergonovine (METHERGINE ) injection 200 mcg 1 05/12/2014 misoprostol (CYTOTEC) 200 mcg tablet 1 04/29 misoprostol (CYTOTEC) tablet 200 mcg 1 04/29 misoprostol (CYTOTEC) tablet 800 mcg 1 04/29 nalOXone (NARCAN) injection 0.2 mg 1 2014 ondansetron (PF) (ZOFRAN) injection 2 mg 1 05/12/2014 ondansetron (PF) (ZOFRAN) injection 2-4 mg 1 05/12/2014 oxyCODONE (ROXICODONE) immed iate release tablet 5-10 mg 1 05/12/2014 Diet Count Last Ordered Date First Orde red Date DISCHARGE DIET 1 05/16/2014 Nursing Count Last Ordered Date First Orde red Date ACTIVITY INSTRUCTIONS 5 05/16/2014 BATHING INSTRUCTIONS 2 05/16/2014 WOUND CARE INSTRUCTIONS 4 05/16/2014 CHANGE DRESSING 1 05/12/2014 CHANGE IV TO SALINE LOCK 1 05/12/2014 CHECK STATON CATHETER 1 05/12/2014 CHECK TEMPERATURE 1 05/12/2014 INTAKE AND OUTPUT 1 05/12/[address] PL[address] SEQUENTIAL COMPRESSION DEVICE 1 05/12 STRAIGHT CATH 1 05/12/2014 IV Count Last Ordered Date First Orde red Date IV REQUEST 1 05/12/2014 Admission Count Last Ordered Date First Orde red Date STATUS: NON-MEDICARE OB INPA TIENT ADMISSION 1 05/12/2014 Transfer Count Last Ordered Date First Orde red Date NOTIFY PPS OF DISCHARGE COMPLETE 1 05/16/19 15 NOTIFY PPS OF ROOM CHANGE COMPLETE 2014 PPS NOTIFICATION OF PATIENT ARRIVAL ON UNIT 1 05/12/2014 PPS NOTIFICATION OF SENDING PATIENT OFF THE UNIT 1 05/12/2014 Discharge Count Last Ordered Date First Orde red Date DISCHARGE PATIENT 1 05/16/2014 Legal Count Last Ordered Date First Orde red Date MISCELLANEOUS DISCHARGE INSTRUCTIONS 04/29 Transfuse Count Last Ordered Date First Orde red Date ADMINISTER RHOGAM (RHIG) 300 MCG 1 05/13/2014 documented in this encounter Care Teams Line Assigner Relationship Specialty Start Date End Date Bhargav Padron, BEATER OPERATOR [address] [place] [phone] PCP - General 03/19/13 07/06/19 documented as of this encounter
--- OUTSIDE RECORDS SUMMARY | 2024-02-14 15:21 | XMS_ITS | Encounter Summary ---
Author Organization [facility] Address [address] [place] [address] Care Team Providers Care Medical Assistant Internal Medicine Name Role Phone Annette Sidhu APRN Primary Care Provider Reason for Visit * Reason Comments Routine Visit Encounter Details Date Type Department Care Team (Late st Contact Info) Description 04/30/2014 10:40 EST Routine [facility] Obstetrics & Midwifery - [address] [id number] Elke Stevenson MD [address] [place] [address], [address] [place] [phone] GA: 34w4d Social History Tobacco Use Types Packs/Day Years [...] Sign Reading Time Taken Comments Blood Pressure 140/90 04/30/2014 1231 EST Pulse - - Temperature - - Respiratory Rate - - Oxygen Saturation - - Inhaled Oxygen Concentration - - Weight 88.7 kg (195 lb 9.6 oz) 04/30/[address] Height 152.4 cm (5') 04/30/2014 1231 EST Body Mass Index 38.2 04/30/2014 1231 EST documented in this encounter Functional Status [...] as of this encounter Progress Notes * Elke Stevenson MD - 04/30/2014 1543 EST S: Patient is a 38 y.o. 34w4d. No LOF, no VB. No regular ctxs. +FM. Complains of RUQ pain, which she went to [place] for the morning of 04/29/2014. Full w/u unrevealing. Still with some RUQ pain, but better. TIDWELL persists, no different from last week. No visual changes. O: Vitals: BP: 140/90 mmHg Height: 152.4 cm (60) Weight : 88.724 kg (195 lb 9.6 oz) BMI: 38.28 Movement: Present A/P:38 y.o. 34w4d : 1. Chronic HTN: on Labetolol 200mg BID -Will recheck preeclamptic labs today, given pt's sxs, and continuation of higher BPs 2. Type II DM -Lantus increased to 30u today. Pt would be better served being in combined Endo clinic, will work on scheduling. Continue Novolog 15u with meals. -Continue AP testing -Plan delivery between 37-39 weeks, given poor glycemic control and CHTN. RTC 1 wk. Elke Stevenson MD documented in this encounter Plan of Treatment Not on file documented as of this encounter Goals Goal Patient Goal Type Associated Problems Recent Progress Patient-Stated? Author HEMOGLOBIN A1C < 7.0 Result Component Type 2 diabetes mellitus ([facility]) 8.7(07/07/2015 5:05 EST) No Annmarie Vigil documented as of this encounter Results * AST (04/30/2014 14:03 EST) AST 25 15 - 46 U/L 04/30/2014 15:15 EST [facility] Blood specimen (specimen) BLOOD SPECIMEN / Unknown 04/30/2014 14:03 EST 04/30/2014 14:29 EST Elke Stevenson MD CHEMISTRY & B LOOD GAS ORDERABLES Performing Organization Address City/[facility] Co de Phone Number [facility] [address] [place] [address] * ALT (04/30/2014 14:03 EST) ALT 27 <53 U/L 04/30/2014 15:15 EST [facility] Blood specimen (specimen) BLOOD SPECIMEN / Unknown 04/30/2014 14:03 EST 04/30/2014 14:29 EST Ekle Stevenson MD CHEMISTRY & B LOOD GAS ORDERABLES Performing Organization Address City/[facility] Co de Phone Number [facility] [address] [place] [address] * (ABNORMAL) HEMAGRAM (04/30/2014 14:03 EST) WBC 17.07(H) 4.0 - 12.4 K/cmm 04/30/2014 14:42 EST [facility] RBC 4.25 3.86 - 5.04 M/cmm 04/30/2014 14:42 EST [facility] Hemoglobin 13.5 11.6 - 15.2 gm/dl 04/30/2014 14:42 [facility] HCT 39.9 34.9 - 44.4 % 04/30/2014 14:42 [facility] MCV 94 81 - 98 fl 04/30/2014 14:42 [facility] MCH 31.8 26.7 - 33.3 pg 04/30/2014 14:42 [facility] MCHC 33.8 32.1 - 35.9 gm/dl 04/30/2014 14:42 [facility] PLT 331(H) 141 - 320 K/cmm 04/30/2014 14:42 [facility] RDW-CV 12.9 11.7 - 14.6 % 04/30/2014 14:42 [facility] Blood specimen (specimen) BLOOD SPECIMEN / Unknown 04/30/2014 14:03 EST 04/30/2014 14:29 EST Elke Stevenson MD HEMATOLOGY & PF4 ORDERABLES Performing Organization Address City/[facility]/ZIP Co de Phone Number [facility] [address] [place] [address] * URIC ACID (04/30/2014 14:03 EST) Uric Acid 4.8 2.2 - 7.7 mg/dl 04/30/2014 15:15 [facility] Blood specimen (specimen) BLOOD SPECIMEN / Unknown 04/30/2014 14:03 EST 04/30/2014 14:29 EST Elke Stevenson MD CHEMISTRY & B LOOD GAS ORDERABLES [facility] [address] [place] [address] * CREATININE (04/30/2014 14:03 EST) Creatinine 0.58 0.52 - 1.04 mg/dl 04/30/2014 15:15 [facility] GFR, Calculated >60 >60 ml/min/1.7 3m2 04/30/2014 15:15 [facility] Blood specimen (specimen) BLOOD SPECIMEN / Unknown 04/30/2014 14:03 EST 04/30/2014 14:29 EST Elke Stevenson MD CHEMISTRY & B LOOD GAS ORDERABLES [facility] [address] [place] [address] documented in this encounter Visit Diagnoses Diagnosis Benign essential hypertension antepartum- Primary documented in this encounter Care Teams Medical Assistant Internal Medicine Relationship Specialty Start Date End Date Annette Sidhu, BODY MAKER MACHINE SETTER [address] [place] [phone] PCP - General 03/19/13 07/06/19 documented as of this encounter
--- OUTSIDE RECORDS SUMMARY | 2024-02-14 15:22 | XMS_ITS | Encounter Summary ---
Author Organization [facility] Address [address] [place] [address] Care Team Providers Care [employer] Humanities Teacher Name Role Phone Annette Sidhu APRN Primary Care Provider [phone] Reason for Visit * Reason Onset Date Comments Blood Glucose Review 04/14/2014 Encounter Details Date Type Department Care Team (Late st Contact Info) Description 04/14/2014 Telephone [facility] Obstetrics & Midwifery - [address] [address] Cary Christensen RN Blood Glucose Review Social History Tobacco Use Types Packs/Day Years [...] Yes 02/22/2014 documented as of this encounter Miscellaneous Notes * Telephone Encounter - Cary Christensen RN - 04/14/2014 1302 EST Call to [facility] to follow up on blood sugar readings--did not bring in her log at her [facility] on 04-09. No answer, voicemail message left requesting phone call back to [facility] RN line. documented in this encounter Plan of Treatment Not on file documented as of this encounter Goals Goal Patient Goal Type Associated Problems Recent Progress Patient-Stated? Author HEMOGLOBIN A1C < 7.0 Result Component Type 2 diabetes mellitus ([facility]) 8.7(07/07/2015 5:05 EST) No Annmarie Vigil documented as of this encounter Visit Diagnoses Not on filedocumented in this encounter Care Teams [employer] Human[employer] Teacher Relationship Specialty Start Date End Date Annette Sidhu APRN [address] [place] [phone] PCP - General 03/19/13 07/06/19 documented as of this encounter
--- OUTSIDE RECORDS SUMMARY | 2024-02-14 15:22 | XMS_ITS | Encounter Summary ---
Author Organization [facility] Address [address] [place] [address] Care Team Providers Care Manager Of Product Name Role Phone Annette Sidhu APRN Primary Care Provider [phone] Reason for Visit * Reason Onset Date Comments Medications Refill 01/01/2014 Encounter Details Date Type Department Care Team (Late st Contact Info) Description 01/01/2014 Telephone [facility] Obstetrics & Midwifery - [address] [address] Cary Christensen, RN Medications Refill Social History Tobacco Use Types [...] documented as of this encounter Functional Status Cognitive Status Response Date of Assessm ent Because of a physical, menta l, or emotional condition, do you have serious difficulty concentrating, remembering, or making decisions? (5 years old or older) Yes 05/06/2013 documented as of this encounter Miscellaneous Notes * Telephone Encounter - Cary Christensen RN - 01/01/2014 1107 EDT Call from [facility] this AM, pt reports she is still in ED, awaiting discharge home. She is asking for Rx for Focolin, very anxious about stopping it quickly. She had been denied Rx by psychiatry at [facility]. Reviewed our conversation yesterday where it was advised she reach out to prescribing MD, pt reports she has been trying to get in touch with [facility] where she sees Dr. Angel, but no one ever returns my call. Offered to call [facility] on her behalf, she accepted. Call placed, spoke with RN who states there is a note from Annette Maldonado NP, pt's primary care provider who called patient to follow up this AM and gave patient two options: 1. To be seen at walk-in clinic today, 01/01 by ACCOUNT RESOLUTION ANALYST, to discuss plan of care moving forward, or 2. To present to walk-in clinic on Saturday when is in clinic. Pt has option of either or both of those. Per [facility] policy, no refill of medication is provided if medications are lost or stolen. Called [facility] back to review options- patient denies ever being given those options. Reiterated her options, and strongly advised she seek care. Also made patient aware she should re-present to ED if she feels unsafe or if she is going to harm herself. Pt verbalized understanding, would not state if she intends to follow up at [facility] today. documented in this encounter Plan of Treatment Not on file documented as of this encounter Goals Goal Patient Goal Type Associated Problems Recent Progress Patient-Stated? Author HEMOGLOBIN A1C < 7.0 Result Component Type 2 diabetes mellitus ([facility]) 8.7(07/07/2015 5:05 EST) No Annmarie Vigil documented as of this encounter Visit Diagnoses Not on filedocumented in this encounter Care Teams Manager Of Product Relationship Specialty Start Date End Date Annette Sidhu APRN [address] [place] [phone] PCP - General 03/19/13 07/06/19 documented as of this encounter
--- OUTSIDE RECORDS SUMMARY | 2024-02-14 15:22 | XMS_ITS | Encounter Summary ---
Author Organization [facility] Address [address] [place] [address] Care Team Providers Care Wood Technologist Name Role Phone Annette Sidhu APRN Primary Care Provider [phone] Encounter Details Date Type Department Care Team (Latest Contact Info) Description 04/09/2014 14:40 EST - 04/09/2014 23:59 [facility] Hospital Encounter [facility] [phone] Kahlida Quiñones MD Discharge Disposition: Home or Self Care Social [...] Type 2 diabetes mellitus ([facility]) 8.7(07/07/2015 5:05 EST) No Annmarie Vigil documented as of this encounter Visit Diagnoses Not on filedocumented in this encounter Care Teams Wood Technologist Relationship Specialty Start Date End Date Annette Sidhu APRN [address] [place] [phone] PCP - General 03/19/13 07/06/19 documented as of this encounter
--- OUTSIDE RECORDS SUMMARY | 2024-02-14 15:22 | XMS_ITS | Encounter Summary ---
Author Organization [facility] Address [address] [place] [address] Care Team Providers Care Underwear Welter Name Role Phone Annette Sidhu APRN Primary Care Provider Encounter Details Date Type Department Care Team (Latest Contact Info) Description 01/06/2014 7:29 EDT - 01/06/2014 23:59 EDT Hospital Encounter [address] [address] Unknown, Provider, Eduard Pineda MD [address] [place] [address] [place] [phone] Discharge Disposition: Auto Discharge Social History Tobacco [...] Yes 05/06/2013 documented as of this encounter Discharge Diagnoses Diagnosis 250.00 DIABETES UNCOMPL ADULT-TYPE II[ICD-9-CM] documented in this encounter Medications at Time [...] mg by mouth 3 times daily. 10/21/2020 lidocaine 5 % (LIDODERM) 5 %(700 mg/patch) [...] Type 2 diabetes mellitus ([facility]) 8.7(07/07/2015 5:05 EST) Annmarie Lopez documented as of this encounter Visit Diagnoses Not on filedocumented in this encounter Care Teams Underwear Welter Relationship Specialty Start Date End Date Annette Sidhu APRN [address] [place] [phone] PCP - General 03/19/13 07/06/19 documented as of this encounter
--- OUTSIDE RECORDS SUMMARY | 2024-02-14 15:22 | XMS_ITS | Encounter Summary ---
Author Organization [facility] Address [address] [place] [address] Care Team Providers Care Sanitary Plumber Name Role Phone Nahum Annette Kay APRN Primary Care Provider [phone] Reason for Referral * Cardiology (Routine) - Closed Specialty Diagnoses / Procedures Referred By Contac t Referred To Contact Diagnoses Diabetes mellitus, antepartum(648.03) Procedures [facility] ECHOCARDIOGRAM (PEDI CARD) Magaly Barahona MD [address] [place] [address] [place] [address] Referral ID Status Reason Start Date Expiration Date Visits Re quested Visits Authorized [id number] Closed 01/18/2014 1 1 Reason for Visit * Reason Comments Routine Visit Encounter Details Date Type Department Care Team (Late st Contact Info) Description 01/18/2014 14:00 EDT Routine [facility] Obstetrics & Midwifery [address] [address] Khalida Quigley MD GA: 20w0d Social History Tobacco Use Types Packs/Day Years [...] Yes 05/06/2013 documented as of this encounter Ordered Prescriptions Prescription Sig Dispensed Refills Start Date End Da te labetalol (NORMODYNE) 100 mg tablet Take 1 Tab by mouth 2 times daily. 60 Tab 1 01/18/2014 04/09/2014 documented in this encounter Progress Notes * Magaly Barahona MD - 01/18/2014 1814 EDT Subjective Hilda Crowley is a 38 y.o. at 20w0d here for a routine visit. Additional Notes: See below Movement:Present Contractions / Labor:None Vaginal Bleeding: None Leakage of Fluid: None Objective Vitals: Heart Rate: US Movement: Present Assessment 38 y.o. at 20w0d with Type 2 DM, CHTN, Depression here for a routine visit. Plan Chronic hypertension in The patient has a history of chronic hypertension pre dating . Her primary care physician discontinued her PHILIPPE-inhibitor prior to . Her blood pressure is elevated today. Not unexpected at this point in . I encouraged her to complete a 24 hour urine collection, and startedher on Labetalol 100mg bid. Type II or unspecified type diabetes mellitus without mention of complication, not stated as uncontrolled The patient is using Metformin 1000mg bid for blood glucose control. She has a history of a suicideattempt with insulin. The patient's blood glucose post- prandial is borderline. At this point, we would have to add a second agent, most likely glyburide. Hilda's detailed ultrasound showed a marginal cord insertion will have to monitor growth throughoutpregnancy. echo at 24 weeks. Depression complicating , antepartum The patient is continuing with her current medications. Her social situation has improved, and has a place to live independently starting January 27. She has no suicide or homicide ideations. Ryan continues to have visits with her therapist. Discussed the signs and symptoms of pre-/term labor and when to call the office. Follow-up in 2 week(s). Seen with Dr. Quigley. Magaly Barahona MD [facility] Attending I saw the pt with Dr. Palacios . I agree with the findings and plan of management. The pt had no further questions concerning his care plan. KHALIDA QUIGLEY MD * Lainey Billings LPN - 01/18/2014 1427 EDT Results for orders placed in visit on 01/18/14 POCT URINE DIPSTICK Result Value Range Color YELLOW Clarity, UA Clear Glucose Neg Neg Bilirubin Neg Neg Ketones Neg Neg Specific Cropsey 1.010 1.001 - 1.035 Blood Neg Neg pH 6.0 4.6 - 8.0 Protein Neg Neg Urobilinogen 0.2 0.2 - 1.0 E.U./dl Nitrite Neg Neg Leuk Esterase Neg Neg Tech ID [id number] documented in this encounter Miscellaneous Notes * Assessment & Plan Note - Magaly Barahona MD - 01/18/2014 1814 EDTAssociated Problem(s): Depression complicating , antepartum The patient is continuing with her current medications. Her social situation has improved, and has a place to live independently starting January 27. She has no suicide or homicide ideations. Ryan continues to have visits with her therapist. * Assessment & Plan Note - Magaly Barahona MD - 01/18/2014 1813 EDTAssociated Problem(s): Diabetes mellitus in , antepartum The patient is using Metformin 1000mg bid for blood glucose control. She has a history of a suicideattempt with insulin. The patient's blood glucose post- prandial is borderline. At this point, we would have to add a second agent, most likely glyburide. Hilda's detailed ultrasound showed a marginal cord insertion will have to monitor growth throughoutpregnancy. echo at 24 weeks. * Assessment & Plan Note - Magaly Barahona MD - 01/18/2014 1811 EDTAssociated Problem(s): Chronic hypertension with exacerbation during in third trimester The patient has a history of chronic hypertension pre dating . Her primary care physician discontinued her PHILIPPE-inhibitor prior to . Her blood pressure is elevated today. Not unexpected at this point in . I encouraged her to complete a 24 hour urine collection, and startedher on Labetalol 100mg bid. documented in this encounter Plan of Treatment Not on file documented as of this encounter Goals Goal Patient Goal Type Associated Problems Recent Progress Patient-Stated? Author HEMOGLOBIN A1C < 7.0 Result Component Type 2 diabetes mellitus ([facility]) 8.7(07/07/2015 5:05 EST) Annmarie Lopez documented as of this encounter Procedures Procedure Name Priority Date/Time Associated Diagnosis Comments [facility] ECHOCARDIOGRAM (PEDI CARD) Routine 02/04/2014 14:00 EDT Diabetes mellitus, antepartum(648.03) POCT URINE DIPSTICK, CLINITEK Routine 01/18/2014 14:14 EDT Supervision of other normal documented in this encounter Results * [facility] ECHOCARDIOGRAM (PEDI CARD) (02/04/2014 14:00 EDT) Anatomical Region Laterality Modality Other 02/04/2014 14:0 0 EDT Narrative 02/04/2014 14:36 EDT Patient Name: HILDA CROWLEY Chart Number: [id number] Site Location: Date of Appt: January, 2:00 PM Echocardiogram Report Demographics and Visit Data: Due Date: 07-Jun-2014. ??Gestational age (weeks): 22.57. ?? : 1975. ??Age: 38y/6m/21d. ??Reason for test: 648.03-Diabetes mellitus, poeiawjsig-VLP-8-CM; Type 2 Diabetes Mellitus. ?? Person requesting test: MAGALY BARAHONA MD. ??Procedure Description: [facility] ECHOCARDIOGRAM (PEDI CARD). ?? echocardiogram at 22 weeks gestation. Normal chamber size and function. Normal arterial and venous connections. Normal Doppler study. No arrhythmias noted during the exam. No evidence of hydrops. The results of the study, its limitations and the limitations of echocardiography in general were reviewed. The inability to diagnose patent ductus arteriosus, some atrial defects, ventricular septal defects and coarctation was discussed. We have also discussed the possible development of ventricular hypertrophy later in gestation secondary to maternal diabetes. Further echocardiography is not recommended unless new concerns arise. Complete 2-dimensional study performed, with pulse/continuous wave Doppler samplings, and color flow Doppler imaging reviewed. Anatomic Summary Right Ventricle: Normal Left Ventricle: Normal Pulmonary Veins: 2 Ventricular Septum: Normal IVC/SVC: Normal Great Vessels: Normal Foramen: Normal Situs: Normal 4-Chamber: Normal Short axis: Normal General Function Function: Normal Rhythm: Normal AV Insufficiency: None Effusion: None Other Observations Image Quality: Fair Findings: ?? Veins and Atria: ?? >> Patent foramen ovale Right to left flow. ?? >> Normal Left Atrium >> Normal Right Atrium >> Normal Pulmonary venous connections At least one pulmonary vein is seen entering from each side. ?? >> Normal Systemic Veins ?? A-V Canal: ?? >> Normal Tricuspid Valve >> Normal Mitral Valve ?? Ventricles: ?? >> Left ventricular dysfunction, ruled out >> Right ventricular dysfunction global, ruled out ?? Conotruncus: ?? >> Normal Pulmonary Valve >> Normal Aortic Valve ?? Great Arteries: ?? >> Patent ductus arteriosus Right to left flow. ?? >> Normal Pulmonary Artery >> Normal Aorta >> Normal Aortic Arch ?? Pericardium: ?? >> Pericardial effusion, ruled out ?? Other: ?? >> echo ?? Measures: ?? Mitral Valve: ?? Name ?Value ?Units ?Z-Score ?Min ?Max ?? Mitral Annulus Diameter ? 0.60 ? cm ? 0.36 ? 0.44 ?? 0.71 ?? MV Area ? 0.28 ? cm 2 ? Tricuspid Valve: ?? Name ?Value ?Units ?Z-Score ?Min ?Max ?? Tricuspid Annulus ? 0.64 ? cm ? 0.6 ?0.45 ?? 0.74 ?? Diameter TV Area ? 0.32 ? cm 2 ? Topping's Name: DION RIVERA MD Date/time of reading: Feb 04 2014 - 2:35:24 PM Report created at 2:36:24 PM on January Report Number: Note:Study interpreted at [facility] unless otherwise noted Procedure Note 02/04/2014 Patient Name: HILDA CROWLEY Chart Number: [id number] Site Location: Date of Appt: January, 2:00 PM Echocardiogram Report Demographics and Visit Data: Due Date: 07-Jun-2014. Gestational age (weeks): 22.57. : 1975. Age: 38y/6m/21d. Reason for test: 648.03-Diabetes mellitus, kemlbmyabg-GFD-5-CM; Type 2 Diabetes Mellitus. Person requesting test: JUN PATTERSON,MAGALY Aguirre Procedure Description: [facility] ECHOCARDIOGRAM (PEDI CARD). echocardiogram at 22 weeks gestation. Normal chamber size and function. Normal arterial and venous connections. Normal Doppler study. No arrhythmias noted during the exam. No evidence of hydrops. The results of the study, its limitations and the limitations of echocardiography in general were reviewed. The inability to diagnose patent ductus arteriosus, some atrial defects, ventricular septal defects and coarctation was discussed. We have also discussed the possible development of ventricular hypertrophy later in gestation secondary to maternal diabetes. Further echocardiography is not recommended unless new concerns arise. Complete 2-dimensional study performed, with pulse/continuous wave Doppler samplings, and color flow Doppler imaging reviewed. Anatomic Summary Right Ventricle: Normal Left Ventricle: Normal Pulmonary Veins: 2 Ventricular Septum: Normal IVC/SVC: Normal Great Vessels: Normal Foramen: Normal Situs: Normal 4-Chamber: Normal Short axis: Normal General Function Function: Normal Rhythm: Normal AV Insufficiency: None Effusion: None Other Observations Image Quality: Fair Findings: Veins and Atria: >> Patent foramen ovale Right to left flow. >> Normal Left Atrium >> Normal Right Atrium >> Normal Pulmonary venous connections At least one pulmonary vein is seen entering from each side. >> Normal Systemic Veins A-V Canal: >> Normal Tricuspid Valve >> Normal Mitral Valve Ventricles: >> Left ventricular dysfunction, ruled out >> Right ventricular dysfunction global, ruled out Conotruncus: >> Normal Pulmonary Valve >> Normal Aortic Valve Great Arteries: >> Patent ductus arteriosus Right to left flow. >> Normal Pulmonary Artery >> Normal Aorta >> Normal Aortic Arch Pericardium: >> Pericardial effusion, ruled out Other: >> echo Measures: Mitral Valve: Name Value Units Z-Score Min Max Mitral Annulus Diameter 0.60 cm 0.36 0.44 0.71 MV Area 0.28 cm 2 Tricuspid Valve: Name Value Units Z-Score Min Max Tricuspid Annulus 0.64 cm 0.6 0.45 0.74 Diameter TV Area 0.32 cm 2 Topping's Name: NICOLE APTTERSON,DION CARR Date/time of reading: Feb 04 2014 - 2:35:24 PM Report created at 2:36:24 PM on January Report Number: Note:Study interpreted at [facility] unless otherwise noted Magaly Barahona MD CARDIAC ECHO ORDERAB LES * POCT URINE DIPSTICK (01/18/2014 14:14 EDT) Color YELLOW [facility] Clarity, UA Clear [facility] Glucose Neg Neg [facility] Bilirubin Neg Neg [facility] Ketones Neg Neg [facility] Specific Cropsey 1.010 1.001 - 1.035 [facility] Blood Neg Neg [facility] pH 6.0 4.6 - 8.0 [facility] Protein Neg Neg [facility] Urobilinogen 0.2 0.2 - 1.0 E.U./dl [facility] Nitrite Neg Neg [facility] Leuk Esterase Neg Neg [facility] supervisor accounts receivable ID [id number] [facility] Comment:Test performed at [facility] Urine specimen (specimen) 01/18/2014 14:14 EDT 01/18/2014 14:25 EDT Magaly Barahona MD POINT OF CARE TEST O RDERABLES [facility] [address] [place] [address] documented in this encounter Visit Diagnoses Diagnosis Supervision of other normal - Primary Diabetes mellitus, antepartum(648.03) Diabetes mellitus, antepartum documented in this encounter Care Teams Sanitary Plumber Relationship Specialty Start Date End Date Annette Sidhu, GROCERY STOCKER [address] [place] [phone] PCP - General 03/19/13 07/06/19 documented as of this encounter
--- OUTSIDE RECORDS SUMMARY | 2024-02-14 15:22 | XMS_ITS | Encounter Summary ---
Author Organization [facility] Address [address] [place] [address] Care Team Providers Care Scaffolder Name Role Phone Annette Sidhu APRN Primary Care Provider [phone] Reason for Visit * Reason Onset Date Comments Appointment Related 03/09/2014 Encounter Details Date Type Department Care Team (Late st Contact Info) Description 03/09/2014 Telephone [facility] Hand & Upper Extremity Program - [address] [place], [place] [id number] Khalida Quiñones MD Appointment Related Social History Tobacco Use Types [...] Miscellaneous Notes * Telephone Encounter - Mecca Arias - 03/09/2014 1032 EST Guzman OTERO'ed for an APV and and Endo appt yesterday. Called and left her a message with our phone number to reschedule. Mecca Arias documented in this encounter Plan of Treatment Not on file documented as of this encounter Goals Goal Patient Goal Type Associated Problems Recent Progress Patient-Stated? Author HEMOGLOBIN A1C < 7.0 Result Component Type 2 diabetes mellitus ([facility]) 8.7(07/07/2015 5:05 EST) No Annmarie Vigil documented as of this encounter Visit Diagnoses Not on filedocumented in this encounter Care Teams Scaffolder Relationship Specialty Start Date End Date Annette Sidhu APRN [address] [place] [phone] PCP - General 03/19/13 07/06/19 documented as of this encounter
--- OUTSIDE RECORDS SUMMARY | 2024-02-14 15:22 | XMS_ITS | Encounter Summary ---
Author Organization [facility] Address [address] [place] [address] Care Team Providers Care Margarine Churn Operator Name Role Phone Annette Sidhu APRN Primary Care Provider [phone] Reason for Visit * Reason Comments Routine Visit Encounter Details Date Type Department Care Team (Late st Contact Info) Description 04/16/2014 9:40 EST Routine [facility] Obstetrics & [place] [address] Eduardo Friend MD [address] [place] [address] [place] [address] GA: 32w4d Social History Tobacco Use Types Packs/Day Years [...] Sign Reading Time Taken Comments Blood Pressure 124/64 04/16/2014 0948 EST Pulse - - Temperature - - Respiratory Rate - - Oxygen Saturation - - Inhaled Oxygen Concentration - - Weight 84.8 kg (187 lb) 04/16/2014 0948 EST Height 152.4 cm (5') 04/16/2014 0948 EST Body Mass Index 36.52 04/16/2014 0948 EST documented in this encounter Functional [...] Yes 02/22/2014 documented as of this encounter Progress Notes * Elke Stevenson MD - 04/30/2014 1009 EST Attestation statement: I saw the patient with Dr. Friend at the time of the visit. I agree with the findings and the plan of care. As noted by Dr. Friend, Guzman most likely needs to be transitionedto insulin. This is a difficult decision, given her prior suicide attempts, but seems to have very poor control on her oral regimen. We have no blood sugar values today, but she states that she will get these to us in the next few days so that we can make an appropriate plan with Endocrine. Given the risk/benefits, I think at this point, insulin therapy is the safest thing for the patient and herfetus. Elke Stevenson MD * Eduardo Friend MD - 04/18/2014 0105 EST Subjective Guzman Jean is a 38 y.o. at 32w6d here for a routine visit. Additional Notes: N/A Movement:Present Contractions / Labor:None Vaginal Bleeding: None Leakage of Fluid: None Objective Vitals: BP: 124/64 mmHg Height: 152.4 cm (60) Weight : 84.823 kg (187 lb) BMI: 36.597 Heart Rate: 150 Movement: Present Assessment 38 y.o. at 32w6d with Type 2 DM here for a routine visit. Plan Supervision of high-risk of elderly multigravida Dating: LMP consistent with a 6 week ultrasound labs Rh A negative / Abs negative /Rubella Immune / Varicella Immune / HepB negative / HIVnegative / RPR NR Pap: Negative with neg HR HPV G/C: Negative Urine cx: Negative Aneuploidy screening: NIPT low risk for T21, T13, T18 Influenza vaccination 02/22/2014 LONGTERM Detailed: marginal umbilical cord insertion Rhogam given 02/22/2014 Tdap vaccination 04/09/14 Chronic hypertension with exacerbation during in third trimester The patient has a history of chronic hypertension pre dating . Her primary care physician discontinued her PHILIPPE-inhibitor prior to . The patient stopped taking her Labetalol because it was giving her headaches. Diabetes mellitus, antepartum(648.03) Baseline 24-hour protein- ordered, but not completed [ ] Baseline pre-eclampsia labs Opthalmology- 08/2013 TSH- 1.06 HgbA1c- 7.4 LONGTERM Detailed - Marginal cord insertion echo - [...] discuss with the MFM group and Endocrine. Previous delivery, antepartum condition or complication The patient desires a repeat delivery. Plan for 39 weeks' gestation. Depression complicating , antepartum Previous suicide attempt 04/[address] Colbert Multiple meds - dexmethyphenidate , Gabapentin, seroquel Seen q 2 wk. Stable at this time Discussed the signs and symptoms of pre-/term labor and when to call the office. Follow-up in 1 week(s). Seen with Dr. [place]. Eduardo Friend MD documented in this encounter Miscellaneous Notes * Assessment & Plan Note - Eduardo Friend MD - 04/18/2014 010 ESTAssociated Problem(s): Depression complicating , antepartum Previous suicide attempt 04/[address] Colbert Multiple meds - dexmethyphenidate , Gabapentin, seroquel Seen q 2 wk. Stable at this time * Assessment & Plan Note - Eduardo Friend MD - 04/18/2014103 ESTAssociated Problem(s): Previous delivery, antepartum condition or complication The patient desires a repeat delivery. Plan for 39 weeks' gestation. * Assessment & Plan Note - Eduardo Friend MD - 04/18/2014103 ESTAssociated Problem(s): Diabetes mellitus in , antepartum Baseline 24-hour protein- ordered, but not completed [ ] Baseline pre-eclampsia labs Opthalmology- 08/2013 TSH- 1.06 HgbA1c- 7.4 LONGTERM Detailed - Marginal cord insertion echo - [...] discuss with the MFM group and Endocrine. * Assessment & Plan Note - Eduardo Friend MD - 04/18/2014 0101 ESTAssociated Problem(s): Chronic hypertension with exacerbation during in third trimester The patient has a history of chronic hypertension pre dating . Her primary care physician discontinued her PHILIPPE-inhibitor prior to . The patient stopped taking her Labetalol because it was giving her headaches. * Assessment & Plan Note - Eduardo Friend MD - 04/18/2014 0101 ESTAssociated Problem(s): Supervision of high-risk of elderly multigravida (Resolved 06/23/2014) Dating: LMP consistent with a 6 week ultrasound labs Rh A negative / Abs negative /Rubella Immune / Varicella Immune / HepB negative / HIVnegative / RPR NR Pap: Negative with neg HR HPV G/C: Negative Urine cx: Negative Aneuploidy screening: NIPT low risk for T21, T13, T18 Influenza vaccination 02/22/2014 LONGTERM Detailed: marginal umbilical cord insertion Rhogam given 02/22/2014 Tdap vaccination 04/09/14 documented in this encounter Plan of Treatment Not on file documented as of this encounter Goals Goal Patient Goal Type Associated Problems Recent Progress Patient-Stated? Author HEMOGLOBIN A1C < 7.0 Result Component Type 2 diabetes mellitus ([facility]) 8.7(07/07/2015 5:05 EST) No Annmarie Vigil documented as of this encounter Results * HEMOGLOBIN A1C (04/16/2014 12:02 EST) Hemoglobin A1C 7.0 % 04/16/2014 15:[address] [facility] Comment: Reference Range: <5.7% Normal 5.7-6.4% Increased risk for diabetes =>6.5% Diagnostic for diabetes (if confirmed) The A1c goal for non adults in general is <7%. The A1c goal for selected patients may be significantly lower than 7% if this can be achieved without significant hypoglycemia or other adverse effects of treatment. Est Avg Glucose 154 mg/dl 4 15:[address] [facility] Comment: eAG represents the A1c result expressed as average glucose in mg/dl. Blood specimen (specimen) BLOOD SPECIMEN / Unknown 04/16/2014 12:02 EST 04/16/2014 12:28 EST Eduardo Friend MD CHEMISTRY & BLOOD GA S ORDERABLES Performing Organization Address City/State/[facility] Co de Phone Number [facility] [address] [place] [address] documented in this encounter Visit Diagnoses Diagnosis Diabetes mellitus, antepartum(648.03)- Primary Diabetes mellitus, antepartum Supervision of high-risk of elderly multigravida documented in this encounter Care Teams Margarine Churn Operator Relationship Specialty Start Date End Date Annette Sidhu APRN [address] [place] [phone] PCP - General 03/19/13 07/06/19 documented as of this encounter
--- OUTSIDE RECORDS SUMMARY | 2024-02-14 15:22 | XMS_ITS | Encounter Summary ---
Author Organization [facility] Address [address] [place] [address] Care Team Providers Care International Trade Teacher Name Role Phone Annette Sidhu APRN Primary Care Provider [phone] Encounter Details Date Type Department Care Team (Late st Contact Info) Description 01/06/2014 Phlebotomy Only [address] [address] Process Inspector, Outpatient Type II or unspecified type diabetes mellitus without mention of complication, not stated as uncontrolled; Abnormal maternal glucose tolerance, antepartum Social History Tobacco Use Types Packs/Day [...] Yes 05/06/2013 documented as of this encounter Plan of Treatment Not on file documented as of this encounter Goals Goal Patient Goal Type Associated Problems Recent Progress Patient-Stated? Author HEMOGLOBIN A1C < 7.0 Result Component Type 2 diabetes mellitus ([facility]) 8.7(07/07/2015 5:05 EST) No Annmarie Vigil documented as of this encounter Visit Diagnoses Diagnosis Type II or unspecified type diabetes mellitus without mention of complication, not stated as uncontrolled Abnormal maternal glucose tolerance, antepartum documented in this encounter Care Teams International Trade Teacher Relationship Specialty Start Date End Date Annette Sidhu APRN [address] [place] [phone] PCP - General 03/19/13 07/06/19 documented as of this encounter
--- OUTSIDE RECORDS SUMMARY | 2024-02-14 15:22 | XMS_ITS | Encounter Summary ---
Author Organization [facility] Address [address] [place] [address] Care Team Providers Care Tapper Operator Name Role Phone Annette Sidhu APRN Primary Care Provider [phone] Reason for Visit * Reason Comments Fall Encounter Details Date Type Department Care Team (Late st Contact Info) Description 02/22/2014 20:11 EDT - 02/22/2014 22:35 EDT Hospital Encounter [facility] [address] [place] [address] Elke Stevenson MD [address] [facility], [address] [place] [address] Supervision of high-risk of elderly [...] Sign Reading Time Taken Comments Blood Pressure 119/46 02/22/20142211 EDT Pulse - - Temperature 35.8 ??C (96.4 ??F) 02/22/20142023 EDT Respiratory Rate 18 02/22/20142211 EDT Oxygen Saturation - - Inhaled Oxygen [...] Yes 02/22/2014 documented as of this encounter Discharge Instructions * Discharge Instr - Other Orders* Cecily Jolley MD - 02/22/2014 22:27 EDT Discharge Instructions L&D Call your provider if: Your water breaks There's any bright red bleeding Your are not feeling the baby move Severe [...] and dinner. 60 Tab 3 02/22/2014 04/20/2014 labetalol (NORMODYNE) 100 mg tablet Take 1 Tab by mouth 2 times daily. 60 Tab 1 01/18/2014 04/09/2014 labetalol (NORMODYNE) 100 mg tablet Take 1 Tab by mouth 2 times daily. 180 Tab 4 01/25/2014 04/09/2014 lidocaine 5 % (LIDODERM) 5 %(700 mg/patch) [...] documented in this encounter Progress Notes * Selvin Christie MD - 02/22/2014 2187 EDT L&D Triage Note C/C: s/p fall. Guzman Jean is a 38 y.o. @ 25w0d by a [facility] U/S HPI: Patient states that she fell on her abdomen when she was walking to work. Patient denies cx, LOF or VB. +FM after that. has been complicated by T2DM and depression. Patient is also Rh negative. O: BP 136/74 Temp(Src) 35.8 ??C (96.4 ??F) (Axillary) Resp 18 LMP 08/31/2013 FHT: 150 baseline, mod variability, pos accels, neg decels; Category I tracing [place]: Flat SSE: Deferred. SVE: deferred. Bedside U/S: Deferred A/P: Guzman Jean is a 38 y.o. @ 25w0d presenting with s/p fall. Category I tracing. *s/p fall: Cat I FHT. Patient given Rhogam. Has had a T&S in the office earlier today. Plan to d/c home on labor precautions. Discussed with Cecily Hyatt MD 02/22/2014 21:39 Attestation statement: I saw and evaluated the above patient. I discussed the case with the above resident and agree with the above note. Briefly, this patient is a 38 y/o @ 25.0 presents forevaluation s/p fall. Category 1 FHT. Did receive rhogam. D/c with abruption precautions. Selvin Christie MD * Neva Matias RN - 02/22/20142041 EDT 20:42 Pt in room 3; here for fall on her way to work this evening at 1845. Reports tripping over her pants, landing on her belly. Denies any abdominal pain; no bruising or tenderness to palpation. +FM. Denies leaking or bleeding or ctx. EFM explained and applied. Ethel Christie MD aware and to bedside to discuss plan of care which will be continuous monitoring to assess for well being and ctx and Rhogham for RH neg status. Pt is agreeable to this. Po fluids and call bel at bedside. No distress. Awaiting delivery of Rhogam at this time. Will monitor. 3 Pt up to the bathroom. 0 Pt back from the bathroom; efm reapplied. 22:11 Rhogam administered. Pt tolerated well. Pt offers no complaints or requests; states feeling better. 2233 Strip reviewed by Ethel Christie MD; states appropriate and pt may be discharged. D/c instructions reviewed and discussed. Written and verbal understanding obtained. documented in this encounter Plan of Treatment Not on file documented as of this encounter Goals Goal Patient Goal Type Associated Problems Recent Progress Patient-Stated? Author HEMOGLOBIN A1C < 7.0 Result Component Type 2 diabetes mellitus ([facility]) 8.7(07/07/2015 5:05 EST) No Annmarie Vigil documented as of this encounter Procedures Procedure Name Priority Date/Time Associated Diagnosis Comments ORDERS - SCANNED 02/25/2014 12:5 8 EDT TRANSFUSION RECORD - SCANNED 02/25/2014 12:58 EDT ABO/RH Routine 02/22/2014 21:24 EDT RH IMMUNE GLOBULIN (300UG) STAT 02/22/2014 20:25 EDT ADMINISTER RHOGAM (RHIG) 300 MCG IM Routine documented in this encounter Results * ORDERS - SCANNED (02/25/2014 12:58 EDT) 02/25/2014 12:5 8 EDT Scan 2 Flue Tile Press Operator ADMISSION ORDERABLE S * TRANSFUSION RECORD - SCANNED (02/25/2014 12:58 EDT) 02/25/2014 12:5 8 EDT Scan 2 Flue Tile Press Operator LAB INFO SERVICE AN D SUPPORT & PHONE RESULT * ABO/RH (02/22/2014 21:24 EDT) ABO A [facility] Rh Factor Negative VIT[facility] A [facility]LOOD [facility] 02/22/2014 21:2 4 EDT Provider Caitlin PATTERSON BLOOD BANK TESTS [facility] * RH IMMUNE GLOBULIN (300UG) (02/22/2014 20:25 EDT) Derivative Code Rh Immune Globulin 300 ug [facility] Lot Number [id number] [facility] Unit Status Transfuse [facility] Blood specimen (specimen) 02/22/2014 20:25 EDT Cecily Jolley MD BLOOD BANK ORDERABLE S [facility] documented in this encounter Visit Diagnoses Diagnosis Supervision of high-risk of elderly multigravida- Primary Supervision of high-risk of elderly multigravida documented in this encounter Administered Medications Administered Medications Medication Order MAR Action Action Date Dose Rate Site Rho(D) Immune Globulin IM Intramuscular Given 02/22/2014 22:05 EDT 300ug Right Gluteus Medius/Ventrogluteal documented in this encounter Orders Admission Count Last Ordered Date First Orde red Date STATUS: OUTPATIENT OBSERVATION SERVICES 1 1 Transfer Count Last Ordered Date First Orde red Date NOTIFY PPS OF DISCHARGE COMPLETE 1 02/23/20 14 Discharge Count Last Ordered Date First Orde red Date DISCHARGE PATIENT 1 02/22/2014 Transfuse Count Last Ordered Date First Orde red Date ADMINISTER RHOGAM (RHIG) 300 MCG IM 1 02/22 documented in this encounter Care Teams Tapper Operator Relationship Specialty Start Date End Date Annette Sidhu APRN [address] [place] [phone] PCP - General 03/19/13 07/06/19 documented as of this encounter
--- OUTSIDE RECORDS SUMMARY | 2024-02-14 15:22 | XMS_ITS | Encounter Summary ---
Author Organization [facility] Address [address] [place] [id number] Care Team Providers Care Supervising Law Enforcement Analyst Name Role Phone Annette Sidhu APRN Primary Care Provider Reason for Referral * SYSTEMS SUPPORT SPECIALIST (Routine) - Closed Specialty Diagnoses / Procedures [facility] Contact Diagnoses Hypertension complicating Diabetes mellitus, antepartum(648.03) Procedures [facility] BIOPHYSICAL PROFILE Eduardo Friend MD [address] [place] [address] Referral ID Status Reason Start Date Expiration Date Visits Re quested Visits Authorized [id number] Closed 04/09/2014 1 1 Reason for Visit * Reason Comments Routine Visit Vulvar Irritation Encounter Details Date Type Department Care Team (Late st Contact Info) Description 04/09/2014 9:00 EST Routine [facility] Obstetrics & Midwifery - [address] [address] Eduardo Friend MD [address] [place] [address] GA: 31w4d Social History Tobacco Use Types Packs/Day Years [...] Sign Reading Time Taken Comments Blood Pressure 134/80 04/09/2014 0800 EST Pulse - - Temperature - - Respiratory Rate - - Oxygen Saturation - - Inhaled Oxygen Concentration - - Weight 83.7 kg (184 lb 9.6 oz) 04/09/[address] Height 152.4 cm (5') 04/09/2014 0800 EST Body Mass Index 36.05 04/09/2014 0800 EST documented in this encounter Functional Status [...] Dispensed Refills Start Date End Da te terconazole (TERAZOL 3) [address] 1 Suppository vaginally daily. 3 Suppository 1 04/09/2014 05/07/2014 documented in this encounter Progress Notes * Brandon Quigley MD - 04/09/2014 0940 EST MFMS Attending I saw the pt with Dr. Palacios . I agree with the findings and plan of management. The pt had no further questions concerning his care plan. Discussed testing on L+D with Nehal Adams . BRANDON QUIGLEY MD * Eduardo Friend MD - 04/09/2014 0946 EST Subjective Guzman Jean is a 38 y.o. at 31w4d here for a routine visit. Additional Notes: N/A Movement:Present Contractions / Labor:None Vaginal Bleeding: None Leakage of Fluid: None Objective Vitals: BP: 134/80 mmHg Height: 152.4 cm (60) Weight : 83.734 kg (184 lb 9.6 oz) BMI: 36.128 Albumin: Negative Glucose: Negative Heart Rate: 140 Movement: Present Assessment 38 y.o. at 31w4d with Type 2 DM, CHTN, history of a suicide attempt on oral medications. here for a routine visit. Plan Supervision of high-risk of elderly multigravida The patient was given her Tdap vaccination today. She presented with vaginal burning and a clinicalexam consistent with a yeast infection. Terazole 0.8% cream was sent to the pharmacy. She is scheduled for a follow-up ultrasound for growth later this morning. Previous delivery, antepartum condition or complication The patient desires a repeat delivery. Plan for 39 weeks' gestation. Type II or unspecified type diabetes mellitus without mention of complication, not stated as uncontrolled I have ordered her baseline pre-eclampsia labs today. I have encouraged her to complete a 24-hour urine collection for protein. No proteinuria noted on urine analysis performed today. She continues to be on metformin 1000mg twice a day and glyburide 5mg twice a day. The patient has not been seen since the end of January. She did not bring her blood glucose log today for review. I am concerned that she has hyperglycemia outside our targets. I have instructed her to contact Endocrinology for an appointment. We will attempt to get her BS next week over the phone. She will need to start testing next week. 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 She will need an order from the resident staff. This was discussed and approved by Dr. Quigley and [facility]. Chronic hypertension in The patient has a history of chronic hypertension pre dating . Her primary care physician discontinued her PHILIPPE-inhibitor prior to . The patient stopped taking her Labetalol because it was giving her headaches. Her blood pressure was normal today without medications. Discussed the signs and symptoms of pre-/term labor and when to call the office. Follow-up in 1 week(s). Seen with Dr. Quigley. Eduardo Friend MD * Cary Christensen RN - 04/09/2014 0912 EST Patient Education Topic: Tdap Vaccine Method: Handout and Verbal Taught to: Patient Barriers: None Outcomes: verbalized understanding Signature: Fan Christensen RN I was supervised by Dr. Quigley who was present and immediately available in the office suite. Cary Christensen RN 04/09/2014 9:12 documented in this encounter Miscellaneous Notes * Assessment & Plan Note - Edurado Friend MD - 04/09/2014 09 ESTAssociated Problem(s): Chronic hypertension with exacerbation during in third trimester The patient has a history of chronic hypertension pre dating . Her primary care physician discontinued her PHILIPPE-inhibitor prior to . The patient stopped taking her Labetalol because it was giving her headaches. Her blood pressure was normal today without medications. * Assessment & Plan Note - Eduardo Friend MD - 04/09/2014 09 ESTAssociated Problem(s): Diabetes mellitus in , antepartum I have ordered her baseline pre-eclampsia labs today. I have encouraged her to complete a 24-hour urine collection for protein. No proteinuria noted on urine analysis performed today. She continues to be on metformin 1000mg twice a day and glyburide 5mg twice a day. The patient has not been seen since the end of January. She did not bring her blood glucose log today for review. I am concerned that she has hyperglycemia outside our targets. I have instructed her to contact Endocrinology for an appointment. We will attempt to get her BS next week over the phone. She will need to start testing next week. 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 She will need an order from the resident staff. This was discussed and approved by Dr. Quigley and Maria Eugenia Adams. * Assessment & Plan Note - Eduardo Friend MD - 04/09/2014 0921 ESTAssociated Problem(s): Previous delivery, antepartum condition or complication The patient desires a repeat delivery. Plan for 39 weeks' gestation. * Assessment & Plan Note - Eduardo Friend MD - 04/09/2014 0919 ESTAssociated Problem(s): Supervision of high-risk of elderly multigravida (Resolved 06/23/2014) The patient was given her Tdap vaccination today. She presented with vaginal burning and a clinicalexam consistent with a yeast infection. Terazole 0.8% cream was sent to the pharmacy. She is scheduled for a follow-up ultrasound for growth later this morning. documented in this encounter Plan of Treatment Not on file documented as of this encounter Goals Goal Patient Goal Type Associated Problems Recent Progress Patient-Stated? Author HEMOGLOBIN A1C < 7.0 Result Component Type 2 diabetes mellitus ([facility]) 8.7(07/07/2015 5:05 EST) Annmarie Lopez documented as of this encounter Procedures Procedure Name Priority Date/Time Associated Diagnosis Comments [facility] BIOPHYSICAL PROFILE Routine 04/16/2014 11:49 EST Hypertension complicating Diabetes mellitus, antepartum(648.03) BACTERIAL CULTURE, URINE Routine 04/09/2014 8:45 EST Dysuria in ZZVAGINITIS EXAM Routine 04/09/2014 8:42 EST Vaginal discharge in POCT URINE DIPSTICK, CLINITEK Routine 04/09/2014 8:34 EST Vaginal discharge in CHLAMYDIA/N. GONORRHOEAE AMPLIFIED NUCLEIC ACID Routine 04/09/2014 8:32 EST Vaginal discharge in documented in this encounter Results * TDAP VACCINE =>7YO IM (04/25/2014 8:07 EST) Narrative Haim Méndez MD - 04/25/2014 8:07 EST Haim Méndez MD ? 04/25/2014 ??8:07 NST Report from [id number] Baseline Heart Rate: ??145 Accelerations: ??absent Movement: ??present ? Decelerations: ??absent Contractions: ??absent ?? Interpretation: ??Non-reactive but normal variability. Dr. Stewart had been notified at the time of the NST. It will be repeated on the morning of 04/25. Haim Méndez MD 04/25/2014 8:06 Procedure Note Haim Méndez MD - 04/24/2014 8:04 EST NST Report from [id number] Baseline Heart Rate: 145 Accelerations: absent Movement: present Decelerations: absent Contractions: absent Interpretation: Non-reactive but normal variability. Dr. Stewart hadbeen notified at the time of the NST. It will be repeated on the morningof 04/25. Haim Méndez MD 04/25/2014 8:06 Eduardo Friend MD IMMUNIZATION ORDERAB LES * (ABNORMAL) PREECLAMPTIC PROFILE (04/16/2014 12:02 EST) AST 16 15 - 46 U/L 04/16/2014 12:55 [facility] ALT 25 <53 U/L 04/16/2014 12:55 [facility] BUN 5(L) 10 - 26 mg/dl 04/16/2014 12:55 [facility] Creatinine 0.50(L) 0.52 - 1.04 mg/dl 04/16/2014 12:55 [facility] GFR, Calculated >60 >60 ml/min/1.7 3m2 04/16/2014 12:55 [facility] Uric Acid 4.0 2.2 - 7.7 mg/dl 04/16/2014 12:55 [facility] WBC 15.53(H) 4.0 - 12.4 K/cmm 04/16/2014 12:34 [facility] RBC 3.91 3.86 - 5.04 M/cmm 04/16/2014 12:34 [facility] Hemoglobin 12.6 11.6 - 15.2 gm/dl 04/16/2014 12:34 [facility] HCT 36.6 34.9 - 44.4 % 04/16/2014 12:34 [facility] MCV 94 81 - 98 fl 04/16/2014 12:34 [facility] MCH 32.2 26.7 - 33.3 pg 04/16/2014 12:34 [facility] MCHC 34.3 32.1 - 35.9 gm/dl 04/16/2014 12:34 [facility] PLT 322(H) 141 - 320 K/cmm 04/16/2014 12:34 [facility] RDW-CV 12.6 11.7 - 14.6 % 04/16/2014 12:34 [facility] Blood specimen (specimen) BLOOD SPECIMEN / Unknown 04/16/2014 12:02 EST 04/16/2014 12:28 EST Eduardo Friend MD PACKAGES & DNA PROBE ORDERABLES Performing Organization Address City/State/[facility] Co de Phone Number [facility] [address] [place] [address] * [facility] BIOPHYSICAL PROFILE (04/16/2014 11:49 EST) Anatomical Region Laterality Modality Other 04/16/2014 11:4 9 EST 04/16/2014 11:59 EST Narrative 04/16/2014 11:59 EST Indication Diabetes, pregestational, type 2. Advanced maternal age. History ======= General History Height 159 cm [...] ======= LMP on: ?08/31/2013 GA by LMP ??32 w + 4 d BITA by LMP : ? 06/07/2014 Conception: ?IVF Ovulation: not induced Assigned: ??Dating performed on 03/08/2014 Based on the LMP Assigned GA ?32 w + 4 d Assigned BITA: ??06/07/2014 General Evaluation Cardiac activity: present. FHR 137 bpm. movements: visualized. Presentation: breech, maternal left. Placenta: anterior. Amniotic Fluid Assessment Normal amount. MVP 6.8 cm. ZHENG 21.5 cm. Q1 4.6 cm, Q2 6.0 cm, Q3 6.8 cm, Q4 4.2 cm. Biophysical Profile Qualitative AFV: 2. breathing movements: 2. Gross body movements: 2. tone: 2. Biophysical profile score: 10. DVD number 931 Duration: 15 minutes. Non Stress Test Reactive FHR: 2 - normal. Baseline rate 150 bpm. Method ======== Transabdominal ultrasound examination, Voluson E8. Sufficient. Impression [id number] Biophysical Profile (including NST) This is a garcia . Please see BPP score above. Follow-up Follow-up with weekly BPP's. Comment ========= This follow-up has been scheduled. Procedure Note 04/16/2014 Indication Diabetes, pregestational, type 2. Advanced maternal age. History ======= General History Height 159 cm [...] ======= LMP on: 08/31/2013 GA by LMP 32 w + 4 d BITA by LMP : 06/07/2014 Conception: IVF Ovulation: not induced Assigned: Dating performed on 03/08/2014 Based on the LMP Assigned GA 32 w + 4 d Assigned BITA: 06/07/2014 General Evaluation Cardiac activity: present. FHR 137 bpm. movements: visualized. Presentation: breech, maternal left. Placenta: anterior. Amniotic Fluid Assessment Normal amount. MVP 6.8 cm. ZHENG 21.5 cm. Q1 4.6 cm, Q2 6.0 cm, Q3 6.8 cm, Q4 4.2 cm. Biophysical Profile Qualitative AFV: 2. breathing movements: 2. Gross body movements: 2. tone: 2. Biophysical profile score: . DVD number 177 Duration: 15 minutes. Non Stress Test Reactive FHR: 2 - normal. Baseline rate 150 bpm. Method ======== Transabdominal ultrasound examination, Voluson E8. Sufficient. Impression [id number] Biophysical Profile (including NST) This is a garcia . Please see BPP score above. Follow-up Follow-up with weekly BPP's. Comment ========= This follow-up has been scheduled. Eduardo Friend MD [facility] ORDERABLE S * BACTERIAL CULTURE, URINE (04/09/2014 8:45 EST) Result No growth 04/10/2014 7:41 EST [facility] Urine specimen (specimen) URINE / Unknown 04/09/2014 8:45 EST 04/09/2014 9:37 EST Eduardo Friend MD MICROBIOLOGY - GENER AL ORDERABLES Performing Organization Address City/[facility] Co de Phone Number [facility] [address] [place] [address] * VAGINITIS EXAM (04/09/2014 8:42 EST) Gram Smear Result Few Yeast forms 04/09/2014 11:18 EST [facility] Result No Trichomonas antigen detected. 04/09/2014 10:48 EST [facility] Gram Smear Result Smear NOT consistent with bacterial vaginosis. 04/09/2014 11:18 EST [facility] Specimen of unknown material (specimen) VAGINAL STRUCTURE / Unknown 04/09/2014 8:42 EST 04/09/2014 9:36 EST Comment:Specimen submitted o n a swab Eduardo Friend MD MICROBIOLOGY - GENER AL ORDERABLES Performing Organization Address City/[facility] Co de Phone Number [facility] [address] [place] [address] * (ABNORMAL) POCT URINE DIPSTICK (04/09/2014 8:34 EST) Color YELLOW 04/09/2014 8:41 [facility] Clarity, UA Clear 04/09/2014 8:41 [facility] Glucose Neg Neg 04/09/2014 8:41 [facility] Bilirubin Neg Neg 04/09/2014 8:41 [facility] Ketones 1+(A) Neg 04/09/2014 8:41 [facility] Specific [place] 1.010 1.001 - 1.035 04/09/2014 8:41 [facility] Blood Neg Neg 04/09/2014 8:41 [facility] pH 6.5 4.6 - 8.0 04/09/2014 8:41 [facility] Protein Neg Neg 04/09/2014 8:41 [facility] Urobilinogen 0.2 0.2 - 1.0 E.U./dl 04/09/2014 8:41 [facility] Nitrite Neg Neg 04/09/2014 8:41 [facility] Leuk Esterase Trace(A) Neg 04/09/2014 8:41 [facility] automotive glass specialist ID [id number] 04/09/2014 8:41 [facility] Comment:Test performed at [facility] Urine specimen (specimen) URINE / Unknown 04/09/2014 8:34 EST 04/09/2014 8:41 EST Eduardo Friend MD POINT OF CARE TEST O RDERABLES Performing Organization Address City/State/[facility] Co de Phone Number [facility] [address] [place] [address] * CHLAMYDIA/GC AMPLIFIED (04/09/2014 8:32 EST) Specimen Description Endocervix 04/09/2014 9:40 [facility] Chlamydia Result No Chlamydia trachomatis DNA detected by software licensing executive mediated amplification. 04/12/2014 13:46 [facility] GC Result No Neisseria gonorrhoeae DNA detected by software licensing executive mediated amplification. 04/12/2014 13:46 [facility] Specimen of unknown material (specimen) TOPOGRAPHY UNKNOWN / Unknown 04/09/2014 8:32 EST 04/09/2014 9:35 EST Eduardo Friend MD MICROBIOLOGY - GENER AL ORDERABLES [facility] [address] [place] [address] documented in this encounter Visit Diagnoses Diagnosis Supervision of other high-risk (V23.89)- Primary Supervision of other high-risk Vaginal discharge in Other specified complication of , unspecified as to episode of care Dysuria in Other specified complication of , unspecified as to episode of care Hypertension complicating Unspecified hypertension antepartum Diabetes mellitus, antepartum(648.03) Diabetes mellitus, antepartum Type II or unspecified type diabetes mellitus without mention of complication, uncontrolled Chronic hypertension with exacerbation during in third trimester Diabetes mellitus, antepartum(648.03) Diabetes mellitus, antepartum Non-reassuring heart tones complicating , antepartum Abnormality in heart rate/rhythm, antepartum condition or complication Abnormal maternal glucose tolerance, antepartum documented in this encounter Discontinued Medications Medication Sig Discontinue Reason Start Date End Da te labetalol (NORMODYNE) 100 mg tablet Take 1 Tab by mouth 2 times daily. 01/18/2014 04/09/2014 labetalol (NORMODYNE) 100 mg tablet Take 1 Tab by mouth 2 times daily. 01/25/2014 04/09/2014 documented as of this encounter Care Teams Supervising Law Enforcement Analyst Relationship Specialty Start Date End Date Annette Sidhu APRN [address] [place] [phone] PCP - General 03/19/13 07/06/19 documented as of this encounter
--- OUTSIDE RECORDS SUMMARY | 2024-02-14 15:22 | XMS_ITS | Encounter Summary ---
Author Organization [facility] Address [address] [place] [address] Care Team Providers Care Protective Signal Superintendent Name Role Phone Annette Sidhu APRN Primary Care Provider [phone] Reason for Visit * Reason Onset Date Comments Hypertension 01/25/2014 Encounter Details Date Type Department Care Team (Late st Contact Info) Description 01/25/2014 Orders Only [facility] OBGYN Services - [address] [address] Cary Christensen, RN Social History Tobacco Use Types Packs/Day [...] times daily. 180 Tab 4 01/25/2014 04/09/2014 documented in this encounter Progress Notes * Cary Christensen, RN - 01/25/2014 1131 EDT Call was placed last week to Guzman to clarify preferred pharmacy for Labetalol per Dr. Friend. Received PHARMAJET Online message from patient requesting Rx be sent to [facility]. Order placed, will write Guzman back and let her know. documented in this encounter Plan of Treatment Not on file documented as of this encounter Goals Goal Patient Goal Type Associated Problems Recent Progress Patient-Stated? Author HEMOGLOBIN A1C < 7.0 Result Component Type 2 diabetes mellitus ([facility]) 8.7(07/07/2015 5:05 EST) Annmarie Lopez documented as of this encounter Visit Diagnoses Not on filedocumented in this encounter Care Teams Protective Signal Superintendent Relationship Specialty Start Date End Date Annette Sidhu APRN [address] [place] [phone] PCP - General 03/19/13 07/06/19 documented as of this encounter
--- OUTSIDE RECORDS SUMMARY | 2024-02-14 15:22 | XMS_ITS | Encounter Summary ---
Author Organization [facility] Address [address] [place] [address] Care Team Providers Care Track Production Engineer Name Role Phone Annette Sidhu APRN Primary Care Provider [phone] Reason for Visit * Reason Onset Date Comments Routine Visit 04/13/2014 Encounter Details Date Type Department Care Team (Late st Contact Info) Description 04/13/2014 Orders Only [facility] [place] [address] Eduardo Friend MD [address] [place] [address] [place] [phone] Supervision of other high-risk (V23.89) (Primary Dx) Social History Tobacco Use Types [...] Yes 02/22/2014 documented as of this encounter Plan of Treatment Not on file documented as of this encounter Goals Goal Patient Goal Type Associated Problems Recent Progress Patient-Stated? Author HEMOGLOBIN A1C < 7.0 Result Component Type 2 diabetes mellitus ([facility]) 8.7(07/07/2015 5:05 EST) No Annmarie Vigil documented as of this encounter Visit Diagnoses Diagnosis Supervision of other high-risk (V23.89)- Primary Supervision of other high-risk documented in this encounter Care Teams Track Production Engineer Relationship Specialty Start Date End Date Annette Sidhu APRN [address] [place] [phone] PCP - General 03/19/13 07/06/19 documented as of this encounter
--- OUTSIDE RECORDS SUMMARY | 2024-02-14 15:22 | XMS_ITS | Encounter Summary ---
Author Organization [facility] Address [address] [place] [address] Care Team Providers Care Firmware Software Verification Engineer Name Role Phone Annette Sidhu APRN Primary Care Provider Reason for Visit * Reason Onset Date Comments Routine Visit 02/18/2014 Encounter Details Date Type Department Care Team (Late st Contact Info) Description 02/18/2014 Orders Only [facility] OBGYN Services - [address] [phone] Charity Onofre MD [address] [place] [address], [address] [place] [address] Supervision of other high-risk (V23.89) (Primary Dx) [...] of this encounter Results * HEMOGLOBIN A1C (02/22/2014 14:55 EDT) Hemoglobin A1C 5.8 % [facility] Comment: Reference Range: <5.7% Normal 5.7-6.4% Increased risk for diabetes =>6.5% Diagnostic for diabetes (if confirmed) The A1c goal for non adults in general is <7%. The A1c goal for selected patients may be significantly lower than 7% if this can be achieved without significant hypoglycemia or other adverse effects of treatment. Est Avg Glucose 120 mg/dl [facility] Comment: eAG represents the A1c result expressed as average glucose in mg/dl. Blood specimen (specimen) 02/22/2014 14:55 EDT 02/22/2014 16:17 EDT Charity Onofre MD CHEMISTRY & BLOOD GA S ORDERABLES Performing Organization Address City/State/[facility] Co de Phone Number [facility] [address] [place] [address] documented in this encounter Visit Diagnoses Diagnosis Supervision of other high-risk (V23.89)- Primary Supervision of other high-risk documented in this encounter Care Teams Firmware Software Verification Engineer Relationship Specialty Start Date End Date Annette Sidhu APRN [address] [place] [phone] PCP - General 03/19/13 07/06/19 documented as of this encounter
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
--- OUTSIDE RECORDS SUMMARY | 2024-02-14 15:22 | XMS_ITS | Encounter Summary ---
Author Organization [facility] Address [address] [place] [address] Care Team Providers Care State Federal Relations Deputy Director Name Role Phone [place]um Annette Kay APRN Primary Care Provider Encounter Details Date Type Department Care Team (Latest Contact Info) Description 02/04/2014 14:14 EDT - 02/04/2014 23:59 EDT Hospital Encounter [facility], operated [facility] [phone] Charlee Reyes MD Discharge Disposition: Home or Self Care [...] 02/22/2014 documented as of this encounter Discharge Diagnoses [...] mg by mouth 3 times daily. 10/21/2020 labetalol (NORMODYNE) 100 mg tablet Take 1 [...] diabetes mellitus ([facility]) 8.7(07/07/2015 5:05 EST) Annmarie Lopez documented as of this encounter Visit Diagnoses Not on filedocumented in this encounter Care Teams State Federal Relations Deputy Director Relationship Specialty Start Date End Date Annette Sidhu APRN [address] [place] [phone] PCP - General 03/19/13 07/06/19 documented as of this encounter
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
--- OUTSIDE RECORDS SUMMARY | 2024-02-14 15:22 | XMS_ITS | Encounter Summary ---
Author Organization [facility] Address [address] [place] [address] Care Team Providers Care Hand Sewer Name Role Phone Annette Sidhu APRN Primary Care Provider Encounter Details Date Type Department Care Team (Late st Contact Info) Description 01/18/2014 10:07 EDT - 01/18/2014 23:59 EDT Hospital Encounter [facility] [place], operated [facility] [phone] Elke Stevenson MD [address] [facility], [address] [place] [phone] Discharge Disposition: Home or Self Care Social [...] Diagnoses Diagnosis 659.63 OTHER ADVANCED MATERN AGE-ANTEPART[ICD-9-CM] 648.03 DIABETES-ANTEPARTUM[ICD-9-CM] 649.13 OBESITY COMPLICATING , W ANTEPARTUM CONDITION OR COMPL[ICD-9-CM] 278.00 OBESITY NOS[ICD-9-CM] documented in this encounter Medications at Time [...] times daily. 60 Tab 1 01/18/2014 04/09/2014 lidocaine 5 % (LIDODERM) 5 %(700 [...] Type 2 diabetes mellitus ([facility]) 8.7(07/07/2015 5:05 EST) Annmarie Lopez documented as of this encounter Visit Diagnoses Not on filedocumented in this encounter Care Teams Hand Sewer Relationship Specialty Start Date End Date Annette Sihdu APRN [address] [place] [phone] PCP - General 03/19/13 07/06/19 documented as of this encounter
--- OUTSIDE RECORDS SUMMARY | 2024-02-14 15:22 | XMS_ITS | Encounter Summary ---
Author Organization [facility] Address [address] [place] [address] Care Team Providers Care Data Warehousing Architect Name Role Phone Nahum Annette Kay APRN Primary Care Provider Reason for Visit * Reason Onset Date Comments Paperwork request 01/06/2014 Encounter Details Date Type Department Care Team (Late st Contact Info) Description 01/06/2014 Telephone [facility] Endocrinology - [facility] [address] [place] [address] Eduard Pineda MD [address] [facility] [address] [place] [address] Paperwork request Social History Tobacco Use Types Packs/Day Years [...] encounter Miscellaneous Notes * Telephone Encounter - Deborah Singleton - 01/06/2014 1012 EDT Kay @ [facility] states they received information on the pt form us but it went to them in error. Should have gone to Dr. Guadarrama. They will shred. Please resend to Dr. Guadarrama. documented in this encounter Plan of Treatment Not on file documented as of this encounter Goals Goal Patient Goal Type Associated Problems Recent Progress Patient-Stated? Author HEMOGLOBIN A1C < 7.0 Result Component Type 2 diabetes mellitus ([facility]) 8.7(07/07/2015 5:05 EST) No Annmarie Vigil documented as of this encounter Visit Diagnoses Not on filedocumented in this encounter Care Teams Data Warehousing Architect Relationship Specialty Start Date End Date Annette Sidhu, PHYSICIAN ASSISTANT [address] [place] [phone] PCP - General 03/19/13 07/06/19 documented as of this encounter
--- OUTSIDE RECORDS SUMMARY | 2024-02-14 15:22 | XMS_ITS | Encounter Summary ---
Author Organization [facility] Address [address] [place] [address] Care Team Providers Care Miller Rod Mill Name Role Phone Annette Sidhu APRN Primary Care Provider [phone] Reason for Visit * Reason Comments Diabetes Encounter Details Date Type Department Care Team (Latest Contact Info) Description 01/11/2014 14:00 EDT Office Visit [facility] Endocrinology - [address] [address] Unknown, Provider, Mfm, Cde Type II or unspecified type diabetes mellitus without mention of complication, not stated as uncontrolled (Primary Dx) Social History Tobacco Use Types [...] as of this encounter Progress Notes * Gely Stokes - 02/23/2014 1646 EDT Pt was not seen by CDE on this day. documented in this encounter Plan of Treatment Not on file documented as of this encounter Goals Goal Patient Goal Type Associated Problems Recent Progress Patient-Stated? Author HEMOGLOBIN A1C < 7.0 Result Component Type 2 diabetes mellitus ([facility]) 8.7(07/07/2015 5:05 EST) Annmarie Lopez documented as of this encounter Visit Diagnoses Diagnosis Type II or unspecified type diabetes mellitus without mention of complication, not stated as uncontrolled- Primary documented in this encounter Care Teams Miller Rod Mill Relationship Specialty Start Date End Date Annette Sidhu, SLICING MACHINE OPERATOR [address] [place] [phone] PCP - General 03/19/13 07/06/19 documented as of this encounter
--- OUTSIDE RECORDS SUMMARY | 2024-02-14 15:22 | XMS_ITS | Encounter Summary ---
Author Organization [facility] Address [address] [place] [address] Care Team Providers Care Property Preservation Specialist Name Role Phone Annette Sidhu APRN Primary Care Provider [phone] Reason for Visit * Reason Comments Diabetes Encounter Details Date Type Department Care Team (Latest Contact Info) Description 01/04/2014 14:30 EDT Office Visit [facility] Endocrinology - [address] [address] Unknown, Provider, Mfm, Cde Diabetes mellitus, antepartum (Primary Dx) Social History Tobacco Use Types [...] - Inhaled Oxygen Concentration - - Weight 79.4 kg (175 lb) 01/04/2014 1200 EDT Height - - Body Mass Index 34.18 12/31/2013 1908 EDT documented in this encounter Functional Status Cognitive Status Response Date of Assessm ent Because of a physical, menta l, or emotional condition, do you have serious difficulty concentrating, remembering, or making decisions? (5 years old or older) Yes 05/06/2013 documented as of this encounter Progress Notes * Gely Stokes - 01/11/2014 1225 EDT [facility] ENDOCRINOLOGY & DIABETES [facility] CLINIC DIABETES NUTRITION VISIT NOTE Guzman Jean [id number] PATIENT ID: Guzman Jaen is a 38 y.o. female referred for medical nutrition therapy by Dr. Quiñones for Diabetes - Type 2 and . SUBJECTIVE: Guzman Jean was seen for a(n) initial medical nutrition therapy visit on 01/04/14 accompanied by: alone She is in her 18th week. On metformin; pt has significant past h/o insulin overdosing for purpose of self harm. 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 Currently in a very difficult social situation with a lot of life changes. Seeing therapist regularly. Severe depression so pt has not been eating nor sleeping. Absolutely no appetite and can barely force herself to eat. FOB threatening to take baby away once born. OBJECTIVE: Diabetes type: Type 2 Vitals: Wt 79.379 kg (175 lb) BMI 34.18 kg/m2 LMP 08/31/2013 BMI: Body mass index is 34.18 kg/(m^2). In past year pt lost about 50# by just monitoring and changing her food intake. Highest weight was 225# Current Outpatient Prescriptions Medication Sig Dispense Refill ??? acetaminophen (TYLENOL) 500 mg tablet Take 2 Tabs by mouth every 4 hours as needed. ??? cyclobenzaprine (FLEXERIL) 10 mg tablet Take 10 mg by mouth 2 times daily. ??? dexmethylphenidate (FOCALIN) 10 mg tablet Take 10 mg by mouth 3 times daily. ??? GABAPENTIN (NEURONTIN ORAL) Take 1,500 mg by mouth daily . ??? lidocaine 5 % (LIDODERM) 5 %(700 mg/patch) patch Apply patch to her back or hip as needed for pain 15 Patch 0 ??? metFORMIN (GLUCOPHAGE) 500 mg tablet Take 1,000 mg by mouth 2 times daily. ??? multivitamin vit-iron fumarate-FA (STUARTNATAL) 27 mg iron- 1 mg tablet tablet Take 1 Tab by mouth daily. 90 Tab 2 ??? QUEtiapine (SEROQUEL) 200 mg tablet Take 200 mg by mouth 2 times daily. No current facility-administered medications for this visit. Lab Results Component Value Date HGBA1C 7.4 10/06/2013 No components found with this basename: OGTT PRESENT MEAL PATTERN: Current eating habits:not eating d/t severe depression and increased stress from life situation. . Comments: As of appt time pt has had only 1 cup of Special K with milk and 2 small pieces of frozenpizza since yesterday at 3pm. In the middle of the night at work she has been able to tolerate somecantaloupe from the cafeteria. A large meal for her lately would be turkey sandwich or sun chips orcheese and crackers BLOOD GLUCOSE MONITORING: Glucose monitoring: BID. Home Blood Glucoses Running: pt reported: fasting 70-120; after a meal under 150. Barriers to monitoring: None Hypoglycemic episode: none Carbohydrate source on person? Yes Ketone testing: No ASSESSMENT: Guzman is a 38 yo with pregestational type 2 diabetes and is 18 weeks. Concern is lack of nutritional intake and continued disinterest in food d/t depression. We spent time talking about importance ofcalories and extra nutrients while and discussed taking nutritional drinks to make up for the loss from not eating. She agrees and understands the importance and will continue to work with her therapist. Would like her to come in 1 week for a weight check. Continue to monitor blood sugars 2-4 times daily. Learning readiness: Verbalizes interest and Active attentive participant Psychosocial, cultural, or economic barriers to care:social, financial, severe depression Verbalized understanding of meal planning guidelines PLAN: Nutrition: Patient education on Carbohydrate Based Diabetes Meal Planning Type of meal planning: Did not review meal plan in full today. Nutritional supplements, instant breakfast, glucerna, special K with protein, etc. Anything tolerated. Small mini meals containing protein and carb. Glucose Monitoring: QID. Minimum BID. Targets: <95 fasting and <120 2 hours postmeal Follow-up 1 week for weight check Thank you for your kind referral of Guzman Jean for nutrition counseling. Time Spent With Patient: 45 minutes [address] 01/11/2014 12:25 documented in this encounter Plan of Treatment Not on file documented as of this encounter Goals Goal Patient Goal Type Associated Problems Recent Progress Patient-Stated? Author HEMOGLOBIN A1C < 7.0 Result Component Type 2 diabetes mellitus ([facility]) 8.7(07/07/2015 5:05 EST) No Annmarie Vigil documented as of this encounter Visit Diagnoses Diagnosis Diabetes mellitus, antepartum(648.03)- Primary Diabetes mellitus, antepartum documented in this encounter Care Teams Property Preservation Specialist Relationship Specialty Start Date End Date Annette Sidhu, RECRUITER SPECIALIST [address] [place] [phone] PCP - General 03/19/13 07/06/19 documented as of this encounter
--- OUTSIDE RECORDS SUMMARY | 2024-02-14 15:22 | XMS_ITS | Encounter Summary ---
Author Organization [facility] Address [address] [place] [address] Care Team Providers Care Certified Paralegal Name Role Phone Annette Sidhu APRN Primary Care Provider [phone] Reason for Referral * FRANCHISE SALES MANAGER (Routine) - Closed Specialty Diagnoses / Procedures [facility]erred To Contact Diagnoses Diabetes mellitus, antepartum(638.03) Procedures JAIL FOLLOW-UP Eduardo Friend MD [address] [place] [address] [place] [address] Referral ID Status Reason Start Date Expiration Date Visits Re quested Visits Authorized [id number] Closed 02/22/2014 1 1 Reason for Visit * Reason Comments Routine Visit Encounter Details Date Type Department Care Team (Late Contact Info) Description 02/22/2014 14:[address] [facility] Obstetrics & Midwifery - [address] [phone] Charity Onofre MD [address] [place] [address], [address] [place] [address] GA: 25w0d Social History Tobacco Use Types Packs/Day Years [...] Sign Reading Time Taken Comments Blood Pressure 136/80 02/22/2014 1400 EDT Pulse - - Temperature - - Respiratory Rate - - Oxygen Saturation - - Inhaled Oxygen Concentration - - Weight 82.7 kg (182 lb 6.4 oz) 02/22/2014 1400 E DT Height 152.4 cm (5') 02/22/2014 1400 EDT Body Mass Index 35.62 02/22/2014 1400 EDT documented in this encounter Functional Status Cognitive Status Response Date of Assessm ent Because of a physical, menta l, or emotional condition, do you have serious difficulty concentrating, remembering, or making decisions? (5 years old or older) Yes 05/06/2013 documented as of this encounter Progress Notes * Eduardo Friend MD - 02/22/2014 8299 EDT Subjective Guzman Jean is a 38 y.o. at 25w0d here for a routine visit. Additional Notes: N/A Movement:Present Contractions / Labor:None Vaginal Bleeding: None Leakage of Fluid: None Objective Vitals: BP: 136/80 mmHg Height: 152.4 cm (60) Weight : 82.736 kg (182 lb 6.4 oz) BMI: 35.697 Heart Rate: 160 Movement: Present Assessment 38 y.o. at 25w0d with T2DM, CHTN here for a routine visit. Plan Previous delivery, antepartum condition or complication The patient desires a repeat delivery. Plan for 39 weeks' gestation. Chronic hypertension in The patient has a history of chronic hypertension pre dating . Her primary care physician discontinued her PHILIPPE-inhibitor prior to . The patient stopped taking her Labetalol because it was giving her headaches. Her blood pressure was normal today. Protein negative. Will monitor closely as she enters the third trimester. Rh negative state in antepartum period Screen at 28 wks with Rhogam Type II or unspecified type diabetes mellitus without mention of complication, not stated as uncontrolled Baseline 24-hour protein- ordered, but not completed [ ] Baseline pre-eclampsia labs Opthalmology- august 2013 TSH- 1.06 HgbA1c- 7.4 JAIL Detailed - Marginal cord insertion echo - normal Growth q 4 wk @ 26-28 wk testing @ 32 wks Metformin 1000mg twice a day History of suicide attempt with insulin overdose The patient's blood glucose is extremely poorly controlled. Will start glyburide today. Discussed using insulin. The patient's social situation is improving, and this may be an option at future visits. Depression complicating , antepartum Previous suicide attempt 04/[address] Colbert Multiple meds - dexmethyphenidate , Gabapentin, seroquel Seen q 2 wk. Stable at this time Discussed the signs and symptoms of pre-/term labor and when to call the office. Follow-up in 2 week(s). Seen with Dr. Onofre. Eduardo Friend MD * Charity Onofre MD - 02/22/2014 1600 EDT MFMS Attending I saw and examined the patient. I agree with impression and plan as noted above. I spent 15 minuteswith the pt 15 min in discussion of the plan as above. Discussed with Endo as well Will add glyburide in an attempt to avopid insulin Pt states she feels well and stable enough to use insulin if needed Disc with Dr. Pineda: will look at pharmacodynamics of Januvia re: liklihood of transplacental transfer in even fails the current metformin/glyburide combo Pt with strong f/u for depression: meds, counseling Will watch growth Charity Onofre MD * Lainey Billings LPN - 02/22/2014 1432 EDT Patient Education Topic: Flu Vaccine Injection Method: Handout Taught to: Patient Barriers: None Outcomes: verbalized understanding Pt tolerated injection well with no complaints. I was supervised by Dr. Onofre who was present and immediately available in the office suite. Signature:Lainey Billings LPN documented in this encounter Miscellaneous Notes * Assessment & Plan Note - Eduardo Friend MD - 02/22/2014 1738 EDTAssociated Problem(s): Depression complicating , antepartum Previous suicide attempt 04/[address] Colbert Multiple meds - dexmethyphenidate , Gabapentin, seroquel Seen q 2 wk. Stable at this time * Assessment & Plan Note - Eduardo Friend MD - 02/22/2014 1737 EDTAssociated Problem(s): Diabetes mellitus in , antepartum Baseline 24-hour protein- ordered, but not completed [ ] Baseline pre-eclampsia labs Opthalmology- august 2013 TSH- 1.06 HgbA1c- 7.4 JAIL Detailed - Marginal cord insertion echo - normal Growth q 4 wk @ 26-28 wk testing @ 32 wks Metformin 1000mg twice a day History of suicide attempt with insulin overdose The patient's blood glucose is extremely poorly controlled. Will start glyburide today. Discussed using insulin. The patient's social situation is improving, and this may be an option at future visits. * Assessment & Plan Note - Eduardo Friend MD - 02/22/2014 1732 EDTAssociated Problem(s): Rh negative state in antepartum period Screen at 28 wks with Rhogam * Assessment & Plan Note - Eduardo Friend MD - 02/22/2014 1731 EDTAssociated Problem(s): Chronic hypertension with exacerbation during in third trimester The patient has a history of chronic hypertension pre dating . Her primary care physician discontinued her PHILIPPE-inhibitor prior to . The patient stopped taking her Labetalol because it was giving her headaches. Her blood pressure was normal today. Protein negative. Will monitor closely as she enters the third trimester. * Assessment & Plan Note - Eduardo Friend MD - 02/22/2014 1728 EDTAssociated Problem(s): Previous delivery, antepartum condition or complication The patient desires a repeat delivery. Plan for 39 weeks' gestation. documented in this encounter Plan of Treatment Not on file documented as of this encounter Goals Goal Patient Goal Type Associated Problems Recent Progress Patient-Stated? Author HEMOGLOBIN A1C < 7.0 Result Component Type 2 diabetes mellitus ([facility]) 8.7(07/07/2015 5:05 EST) No Annmarie Vigil documented as of this encounter Procedures Procedure Name Priority Date/Time Associated Diagnosis Comments JAIL FOLLOW-UP Routine 03/08/2014 10:12 EST Diabetes mellitus, antepartum(648.03) documented in this encounter Results * JAIL FOLLOW-UP (03/08/2014 10:12 EST) Anatomical Region Laterality Modality Other 03/08/2014 10:1 2 EST 03/08/2014 11:29 EST Narrative 03/08/2014 11:29 EST Indication Diabetes, pregestational, type 2. Placental lakes, marginal placental cord insertion, Advanced maternal age, BMI 32.0. History ======= General History Height 159 cm Height (ft) ?5 ft Height (in) ?3 in Previous Outcomes ?4 Para ?? 2 Children born (T) ??2 Living children (L) ?2 Abortions (A) ??1 Other: Mode of last delivery: Section Garcia . Number of fetuses: 1. Maternal Assessment Weight 81 kg Weight (lb) ?178 lb Height 159 cm Height (ft) ?5 ft Height (in) ?3 in BMI ?31.94 kg/m Physical Exam Initial weight 81 kg Initial weight (lb) ?178 lb Initial BMI ?32.00 kg/m Dating ======= Method of dating: ??based on the LMP LMP on: ?08/31/2013 GA by LMP ??27 w + 0 d BITA by LMP : ? 06/07/2014 Conception: ?IVF Ovulation: not induced Ultrasound examination on: 03/08/2014 GA by U/S based upon: ??AC, BPD, Femur, HC GA by U/S ??27 w + 0 d BITA by U/S: ?06/07/2014 Assigned: ??Dating performed on 03/08/2014 Based on the LMP Assigned GA ?27 w + 0 d Assigned BITA: ??06/07/2014 General Evaluation Cardiac activity: present. FHR 169 bpm. movements: visualized. Presentation: transverse, head maternal left. Placenta: anterior. Umbilical cord: Cord vessels: 3 vessel cord. Cord insertion: placental insertion: normal. Amniotic fluid: MVP 4.9 cm. ZHENG 14.1 cm. Q1 4.9 cm, Q2 3.8 cm, Q3 2.5 cm, Q4 3.0 cm. Anatomy Head / Brain Head: ??normal Head: ??Shape and size Brain: normal Brain: Cerebellum, choroid plexus, cisterna magna, lateral cerebral ventricles, midline falx and cavum septi pellucidi Thorax / Heart / Great Vessels Heart: normal Heart: Four chamber view of the heart appears normal Abdomen Stomach: ?? normal Stomach: ?? Presence, size and situs Urinary Tract / Genitals Kidneys: ?? normal Kidneys: ?? Both kidneys Bladder: ?? normal Bladder: ?? Size and location Biometry Biometry BPD ?63.0 mm 5% 25w 4d Hadlock OFD ?92.0 mm 72% 27w 2d Nicolaides HC 249.6 mm ?25% 27w 1d Hadlock AC 235.8 mm ?70% 27w 6d Hadlock Femur ??51.3 mm 49% 27w 3d Hadlock Humerus ?47.1 mm 64% Peralta EFW ?1,085 g 39% Gibson Calculated by: Hadlock ([id number]) EFW (lb) ?? 2 lb EFW (oz) ?? 6 oz Cephalic index 0.68 ?<1% Chitty HC / AC ?1.06 FL / BPD ?? 0.81 FL / AC ?0.22 MVP ?4.9 cm ZHENG ?14.1 cm FHR ?169 bpm Head / Face / Neck Molder Vacuum 5.0 mm Method ======== Transabdominal ultrasound examination, Voluson E8. Suboptimal view: limited by maternal body habitus. Impression [id number] Follow-up obstetrical ultrasound This is a garcia gestation. biometry is consistent with prior dating. Except where noted above, the anatomy was not reviewed in detail as this is a follow-up study and the anatomy was previously assessed. Normal fluid and movement are noted. The placental cord insertion appears normal on today's study. Follow-up Follow-up as clinically indicated. Procedure Note 03/08/2014 Indication Diabetes, pregestational, type 2. Placental lakes, marginal placental cord insertion, Advanced maternal age, BMI 32.0. History ======= General History Height 159 cm Height (ft) 5 ft Height (in) 3 in Previous Outcomes 4 Para 2 Children born (T) 2 Living children (L) 2 Abortions (A) 1 Other: Mode of last delivery: Section Garcia . Number of fetuses: 1. Maternal Assessment Weight 81 kg Weight (lb) 178 lb Height 159 cm Height (ft) 5 ft Height (in) 3 in BMI 31.94 kg/m Physical Exam Initial weight 81 kg Initial weight (lb) 178 lb Initial BMI 32.00 kg/m Dating ======= Method of dating: based on the LMP LMP on: 08/31/2013 GA by LMP 27 w + 0 d BITA by LMP : 06/07/2014 Conception: IVF Ovulation: not induced Ultrasound examination on: 03/08/2014 GA by U/S based upon: AC, BPD, Femur, HC GA by U/S 27 w + 0 d BITA by U/S: 06/07/2014 Assigned: Dating performed on 03/08/2014 Based on the LMP Assigned GA 27 w + 0 d Assigned BITA: 06/07/2014 General Evaluation Cardiac activity: present. FHR 169 bpm. movements: visualized. Presentation: transverse, head maternal left. Placenta: anterior. Umbilical cord: Cord vessels: 3 vessel cord. Cord insertion: placental insertion: normal. Amniotic fluid: MVP 4.9 cm. ZHENG 14.1 cm. Q1 4.9 cm, Q2 3.8 cm, Q3 2.5 cm, Q4 3.0 cm. Anatomy Head / Brain Head: normal Head: Shape and size Brain: normal Brain: Cerebellum, choroid plexus, cisterna magna, lateral cerebral ventricles, midline falx and cavum septi pellucidi Thorax / Heart / Great Vessels Heart: normal Heart: Four chamber view of the heart appears normal Abdomen Stomach: normal Stomach: Presence, size and situs Urinary Tract / Genitals Kidneys: normal Kidneys: Both kidneys Bladder: normal Bladder: Size and location Biometry Biometry BPD 63.0 mm 5% 25w 4d Hadlock OFD 92.0 mm 72% 27w 2d Nicolaides HC 249.6 mm 25% 27w 1d Hadlock AC 235.8 mm 70% 27w 6d Hadlock Femur 51.3 mm 49% 27w 3d Hadlock Humerus 47.1 mm 64% Peralta EFW 1,085 g 39% Gibson Calculated by: Hadlock ([id number]) EFW (lb) 2 lb EFW (oz) 6 oz Cephalic index 0.68 <1% Chitty HC / AC 1.06 FL / BPD 0.81 FL / AC 0.22 MVP 4.9 cm ZHENG 14.1 cm FHR 169 bpm Head / Face / Neck Molder Vacuum 5.0 mm Method ======== Transabdominal ultrasound examination, Voluson E8. Suboptimal view: limited by maternal body habitus. Impression [id number] Follow-up obstetrical ultrasound This is a garcia gestation. biometry is consistent with prior dating. Except where noted above, the anatomy was not reviewed in detail as this is a follow-up study and the anatomy was previously assessed. Normal fluid and movement are noted. The placental cord insertion appears normal on today's study. Follow-up Follow-up as clinically indicated. Eduardo Friend MD IM US JAIL ORDERABLE S * (ABNORMAL) HEMAGRAM (02/22/2014 14:55 EDT) WBC 15.39(H) 4.0 - 12.4 K/cmm [facility] RBC 3.81(L) 3.86 - 5.04 M/cmm [facility] Hemoglobin 12.5 11.6 - 15.2 gm/dl [facility] HCT 35.5 34.9 - 44.4 % [facility] MCV 93 81 - 98 fl [facility] MCH 32.9 26.7 - 33.3 pg [facility] MCHC 35.3 32.1 - 35.9 gm/dl [facility] PLT 276 141 - 320 K/cmm [facility] RDW-CV 12.4 11.7 - 14.6 % [facility] Blood specimen (specimen) 02/22/2014 14:55 EDT 02/22/2014 16:17 EDT Eduardo Friend MD HEMATOLOGY & PF4 ORD ERABLES [facility] [address] [place] [address] * ANTIBODY SCREEN (02/22/2014 14:50 EDT) Antibody Screen Negative [facility] Blood specimen (specimen) 02/22/2014 14:50 EDT Eduardo Friend MD BLOOD BANK TESTS [facility] documented in this encounter Visit Diagnoses Diagnosis Diabetes mellitus, antepartum(648.03)- Primary Diabetes mellitus, antepartum Need for prophylactic vaccination and inoculation against influenza documented in this encounter Orders Immunization/Injection Count Last Ordered Date First Ordered Date INFLUENZA VACCINE =>3YO QUAD PRESERVATIVE FREE IM 1 02/22/2014 documented in this encounter Care Teams Certified Paralegal Relationship Specialty Start Date End Date Annette Sidhu APRN [address] [place] [phone] PCP - General 03/19/13 07/06/19 documented as of this encounter
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
--- OUTSIDE RECORDS SUMMARY | 2024-02-14 15:22 | XMS_ITS | Encounter Summary ---
Author Organization [facility] Address [address] [place] [address] Care Team Providers Care Laminated Plastics Assembler And Gluer Name Role Phone Annette Sidhu APRN Primary Care Provider [phone] Reason for Visit * Reason Comments Routine Visit Encounter Details Date Type Department Care Team (Latest Contact Info) Description 01/04/2014 13:45 EDT Office Visit [facility] Endocrinology - [address] [phone] Unknown, Provider, , High Risk Type II or unspecified type diabetes mellitus without mention of complication, not stated as uncontrolled (Primary Dx); Abnormal maternal glucose tolerance, antepartum; Depression complicating , antepartum Social History Tobacco Use Types Packs/Day [...] Sign Reading Time Taken Comments Blood Pressure 128/70 01/04/2014 1358 EDT Pulse - - Temperature - - Respiratory Rate - - Oxygen Saturation - - Inhaled Oxygen Concentration - - Weight 79.4 kg (175 lb) 01/04/2014 1358 EDT Height - - Body Mass Index 34.18 12/31/2013 1908 EDT documented in this encounter Functional Status Cognitive Status Response Date of Assessm ent Because of a physical, menta l, or emotional condition, do you have serious difficulty concentrating, remembering, or making decisions? (5 years old or older) Yes 05/06/2013 documented as of this encounter Progress Notes * Kayley Ochoa MD - 01/04/2014 1430 EDT [facility] Diabetes Initial Evaluation Note CHIEF COMPLAINT: Guzman Jean presents with 1. Previous delivery, antepartum condition or complication 2. Supervision of high-risk of elderly multigravida 3. Type II or unspecified type diabetes mellitus without mention of complication, not stated as uncontrolled 4. Depression complicating , antepartum 5. Back pain complicating 6. Rh negative state in antepartum period 7. Obesity complicating , childbirth, or the puerperium Endocrinology Consultation Note: Date of Visit: 01/04/2014 Reason for consultation: Newly diagnosed gestational diabetes / Management of uncontrolled type II Diabetes Mellitus. Intrauterine (Current gestational age: 38w3d) Referring Provider: No referring provider defined for this encounter. HPI 38yo @ 18wks gestation s/p prior , with history of [...] may be untenable. She saw her therapist todayand will see psychiatrist tomorrow; she states she has slept 2 hours per night lately and believes she is manic. Also complains of severe back spasms. No vaginal bleeding or discharge. She has been compliant with BG monitoring 4x per day. On Metformin alone, her BG ranges from the 80's to 140's. She states she doesn't want to restart insulin, eventhough she denies SI today, because her mood swings can cause her to be impulsive. Obstetric History: 4 Para 2 LMP 08/31/13 Expected delivery date 06/08/14 Hypertension with current no 24 hour urine protein pending Previous pregnancies Weight of previous children [...] visit. She has type 2 diabetes mellitus. No MedicAlert identification noted. Her disease course has been stable. Hypoglycemia symptoms include mood changes andnervousness/anxiousness. Pertinent negatives for hypoglycemia include no confusion, dizziness, headaches, hunger, pallor, seizures, sleepiness, speech difficulty, sweats or tremors. Pertinent negatives for diabetes include no blurred vision, no chest pain, no fatigue, no foot paresthesias, no foot ulcerations, no polydipsia, no polyphagia, no polyuria, no visual change, no weakness, no weight loss and no nocturia. There are no hypoglycemic complications. Symptoms are stable. There are no diabetic complications. Risk factors for coronary artery disease include obesity, stress and sedentary lifestyle. Current diabetic treatment includes oral agent (monotherapy) and diet. She is compliant withtreatment all of the time. Her weight is stable. She is following a diabetic diet. Meal planning includes avoidance of concentrated sweets. She has not had a previous visit with a holistic pulser. She rarely participates in exercise. She monitors blood glucose at home 3-4 x per day. There is no change inher home blood glucose trend. Her breakfast blood glucose range is generally 90-110 mg/dl. Her dinner blood glucose range is generally 110-130 mg/dl. Her highest blood glucose is 130-140 mg/dl. Her overall blood glucose range is 110-130 mg/dl. An PHILIPPE inhibitor/angiotensin II receptor oleg is notbeing taken. She does not see a leather sponger.Eye exam is current. Family history is reviewed and includes the following: diabetes and cardiovascular disease. Guzman Jean has a history of being in good glycemic control. Patient has a history of being noncompliant some of the time with medical therapy. Patient's home regimen consists of has a current medication list which includes the following prescription(s): acetaminophen, cyclobenzaprine, dexmethylphenidate, gabapentin, lidocaine 5 %, metformin, multivitamin vit-iron fumarate-fa, and quetiapine. Prior treatment for diabetes: medications: metformin , recently stopped insulin due to mental illness and suicidal ideation. Patient's last HgbA1C was 7.4 in September 2013. The patient has experienced no diabetic complications so far. History Substance Use Topics ??? Smoking status: Current Every Day Smoker -- 0.50 packs/day for 3 years Types: Cigarettes ??? Smokeless tobacco: Never Used ??? Alcohol Use: No Psychosocial, cultural, or economic factors that might influence management of diabetes include: Severe mental health issues including bordlerline personality disorder. REVIEW OF SYSTEMS: Constitutional: positive for anorexia Behavioral/Psych: positive for ADHD, anorexia/loss of appetite, anxiety, angry/bad mood, behavior problems, bipolar, borderline personality disorder, depression, mood swings, obesity and suicidal Eyes: negative Cardiovascular: negative Gastrointestinal: negative, denies GI distress on plain metformin bid Genitourinary:negative, denies polyuria Neurological: negative Eye: none. Neurologic: none. Kidney: none. Sexual: no complaints. PVD: none Skin: none. Cardiac: none. PHYSICAL EXAMINATION: Vitals: BP 128/70 Wt 79.379 kg (175 lb) BMI 34.18 kg/m2 LMP 08/31/2013 BMI: Body mass indexis 34.18 kg/(m^2). General appearance - alert, well appearing, and in no distress, oriented to person, place, and timeand overweight Mental status - alert, oriented to person, place, and time, normal mood, behavior, speech, dress, motor activity, and thought processes, affect appropriate to mood Eyes - extraocular eye movements intact Chest - clear to auscultation, no wheezes, rales or rhonchi, symmetric air entry Heart - normal rate, regular rhythm, normal S1, S2, no murmurs, rubs, clicks or gallops, normal rate and regular rhythm Neurological - alert, oriented, normal speech, no focal findings or movement disorder noted, cranial nerves II through XII intact LABS: Lab Results Component Value Date HGBA1C [...] calculate ug/mg Crea result. 11/21/2012 ASSESSMENT/PLAN: 1. Previous delivery, antepartum condition or complication 2. Supervision of high-risk of elderly multigravida 3. Type II or unspecified type diabetes mellitus without mention of complication, not stated as uncontrolled 4. Depression complicating , antepartum 5. Back pain complicating 6. Rh negative state in antepartum period 7. Obesity complicating , childbirth, or the puerperium Our office will be managing this patient until the diabetes treatment regimen is stable. We have instructed the patient to call us with blood sugar values. I would like you to continue to manage their blood pressure, lipids and preventive care. Medications: Recommend aspirin daily. Insulin: Contraindicated due to prior suicide attempts by OD, recent SI and threatening to kill herself by insulin overdose Non-insulin: metformin 1000mg po bid. Glucose monitoring QID. Referred to diabetic education program. Referred to holistic pulser yes appointment TBA. Patient referred to eye manager critical care for annual dilated eye exam. Lifestyle modifications: recommend exercise Patient does demonstrate knowledge of diabetes and expectations. Patient does understand medication regimen. Barriers to adherence: Emotional. *More or less stringent glycemic goals may [...] dose of a statin, is an option. Kayley Ochoa MD 01/04/2014 14:30 Family Medicine R1 p [id number] Attestation statement: I saw and examined the patient with the resident/fellow. I agree with the findings and plan of care documented in the resident's/fellow's note. * Cary Christensen, RN - 01/04/2014 1359 EDT Denies LOF or vaginal bleeding but reports some decreased movement today and some mild cramping- 4 out of 10 on pain scale. documented in this encounter Plan of Treatment Not on file documented as of this encounter Goals Goal Patient Goal Type Associated Problems Recent Progress Patient-Stated? Author HEMOGLOBIN A1C < 7.0 Result Component Type 2 diabetes mellitus ([facility]) 8.7(07/07/2015 5:05 EST) No Annmarie Vigil documented as of this encounter Visit Diagnoses Diagnosis Type II or unspecified type diabetes mellitus without mention of complication, not stated as uncontrolled- Primary Abnormal maternal glucose tolerance, antepartum Depression complicating , antepartum Mental disorders of mother, antepartum documented in this encounter Orders Lab Orders Without Results Count Last Ordered D ate First Ordered Date T4 FREE 1 01/04/2014 TSH 1 01/04/2014 documented in this encounter Care Teams Laminated Plastics Assembler And Gluer Relationship Specialty Start Date End Date Annette Sidhu APRN [address] [place] [phone] PCP - General 03/19/13 07/06/19 documented as of this encounter
--- OUTSIDE RECORDS SUMMARY | 2024-02-14 15:22 | XMS_ITS | Encounter Summary ---
Author Organization [facility] Address [address] [place] [address] Care Team Providers Care Collar Cutter Name Role Phone Annette Sidhu APRN Primary Care Provider Encounter Details Date Type Department Care Team (Late st Contact Info) Description 04/16/2014 Phlebotomy Only [address] [address] Youth Advocate, Outpatient Hypertension complicating ; Diabetes mellitus, antepartum(648.03) Social History Tobacco Use [...] Result Component Type 2 diabetes mellitus ([facility]) 8.7(07/07/2015 5:05 EST) No Vigil, Annmarie documented as of this encounter Procedures Procedure Name Priority Date/Time Associated Diagnosis Comments PREECLAMPTIC PROFILE Routine 04/16/2014 12:02 EST Hypertension complicating HEMOGLOBIN A1C Routine 04/16/2014 12:02 EST Diabetes mellitus, antepartum(648.03) documented in this encounter Results * HEMOGLOBIN A1C (04/16/2014 12:02 EST) Hemoglobin A1C 7.0 % 04/16/2014 15:23 EST [facility] Comment: Reference Range: <5.7% Normal 5.7-6.4% Increased risk for diabetes =>6.5% Diagnostic for diabetes (if confirmed) The A1c goal for non adults in general is <7%. The A1c goal for selected patients may be significantly lower than 7% if this can be achieved without significant hypoglycemia or other adverse effects of treatment. Est Avg Glucose 154 mg/dl 4 15:23 EST [facility] Comment: eAG represents the A1c result expressed as average glucose in mg/dl. Blood specimen (specimen) BLOOD SPECIMEN / Unknown 04/16/2014 12:02 EST 04/16/2014 12:28 EST Eduardo Friend MD CHEMISTRY & BLOOD GA S ORDERABLES [facility] [address] [place] [address] * (ABNORMAL) PREECLAMPTIC PROFILE (04/16/2014 12:02 EST) AST 16 15 - 46 U/L 04/16/2014 12:55 EST [facility] ALT 25 <53 U/L 04/16/2014 12:55 EST [facility] BUN 5(L) 10 - 26 mg/dl 04/16/2014 12:55 [facility] Creatinine 0.50(L) 0.52 - 1.04 mg/dl 04/16/2014 12:55 [facility] GFR, Calculated >60 >60 ml/min/1.7 3m2 04/16/2014 12:55 [facility] Uric Acid 4.0 2.2 - 7.7 mg/dl 04/16/2014 12:55 [facility] WBC 15.53(H) 4.0 - 12.4 K/cmm 04/16/2014 12:34 [facility] RBC 3.91 3.86 - 5.04 M/cmm 04/16/2014 12:34 [facility] Hemoglobin 12.6 11.6 - 15.2 gm/dl 04/16/2014 12:34 [facility] HCT 36.6 34.9 - 44.4 % 04/16/2014 12:34 [facility] MCV 94 81 - 98 fl 04/16/2014 12:34 [facility] MCH 32.2 26.7 - 33.3 pg 04/16/2014 12:34 [facility] MCHC 34.3 32.1 - 35.9 gm/dl 04/16/2014 12:34 [facility] PLT 322(H) 141 - 320 K/cmm 04/16/2014 12:34 [facility] RDW-CV 12.6 11.7 - 14.6 % 04/16/2014 12:34 [facility] Blood specimen (specimen) BLOOD SPECIMEN / Unknown 04/16/2014 12:02 EST 04/16/2014 12:28 EST Eduardo Friend MD PACKAGES & DNA PROBE ORDERABLES [facility] [address] [place] [address] documented in this encounter Visit Diagnoses Diagnosis Hypertension complicating Unspecified hypertension antepartum Diabetes mellitus, antepartum(648.03) Diabetes mellitus, antepartum documented in this encounter Care Teams Collar Cutter Relationship Specialty Start Date End Date Annette Sidhu, PROCESS TECH [address] [place] [phone] PCP - General 03/19/13 07/06/19 documented as of this encounter
--- OUTSIDE RECORDS SUMMARY | 2024-02-14 15:22 | XMS_ITS | Encounter Summary ---
Author Organization [facility] Address [address] [place] [address] Care Team Providers Care Supervisor Stripping Name Role Phone Annette Sidhu APRN Primary Care Provider Encounter Details Date Type Department Care Team (Late st Contact Info) Description 01/06/2014 Orders Only [facility] Endocrinology - [facility] [address] [place] [address] Eduard Pineda MD [address] [facility] [facility] [address] [place] [phone] Type II or unspecified type diabetes mellitus [...] Component Type 2 diabetes mellitus ([facility]) 8.7(07/07/2015 5:05 EST) No Annmarie Vigil documented as of this encounter Results * T4 FREE (02/22/2014 14:55 EDT) Free T4 0.9 0.8 - 1.8 ng/dl [facility] Blood specimen (specimen) 02/22/2014 14:55 EDT 02/22/2014 16:31 EDT Eduard Pineda MD CHEMISTRY & BLOOD GAS ORDERABLES Performing Organization Address [facility] de Phone Number [facility] [address] [place] [address] * TSH (02/22/2014 14:55 EDT) TSH 0.67 0.35 - 5.00 uIU/ml [facility] Blood specimen (specimen) 02/22/2014 14:55 EDT 02/22/2014 16:31 EDT Eduard Pineda MD CHEMISTRY & BLOOD GAS ORDERABLES Performing Organization Address [facility] de Phone Number [facility] [address] [place] [address] documented in this encounter Visit Diagnoses Diagnosis Type II or unspecified type diabetes mellitus without mention of complication, not stated as uncontrolled- Primary documented in this encounter Care Teams Supervisor Stripping Relationship Specialty Start Date End Date Annette Sidhu APRN [address] [place] [phone] PCP - General 03/19/13 07/06/19 documented as of this encounter
--- OUTSIDE RECORDS SUMMARY | 2024-02-14 15:22 | XMS_ITS | Encounter Summary ---
Author Organization [facility] Address [address] [place] [address] Care Team Providers Care Substitute Teacher Name Role Phone Annette Sidhu APRN Primary Care Provider [phone] Reason for Visit * Reason Onset Date Comments Routine Visit 01/28/2014 Encounter Details Date Type Department Care Team (Late st Contact Info) Description 01/28/2014 Orders Only [facility] Obstetrics [place] [address] Khalida Quiñones MD Supervision of other high-risk (V23.89) (Primary Dx) [...] Component Type 2 diabetes mellitus ([facility]) 8.7(07/07/2015 5:05 EST) No Annmarie Vigil documented as of this encounter Visit Diagnoses Diagnosis Supervision of other high-risk (V23.89)- Primary Supervision of other high-risk documented in this encounter Orders Lab Orders Without Results Count Last Ordered D ate First Ordered Date ANTIBODY SCREEN 1 01/29/2014 documented in this encounter Care Teams Substitute Teacher Relationship Specialty Start Date End Date Annette Sidhu, SENIOR RECRUITER [address] [place] [phone] PCP - General 03/19/13 07/06/19 documented as of this encounter
--- OUTSIDE RECORDS SUMMARY | 2024-02-14 15:22 | XMS_ITS | Encounter Summary ---
Author Organization [facility] Address [address] [place] [id number] Care Team Providers Care Commercial Producer Name Role Phone Annette Sidhu APRN Primary Care Provider Encounter Details Date Type Department Care Team (Late st Contact Info) Description 04/09/2014 10:29 EST - 04/09/2014 14:39 [facility] Hospital Encounter [facility] [phone] Haim Méndez MD [address] [place] [address], [facility] [address] [place] [id number] Discharge Disposition: Home or Self Care Social [...] Code Departure Means Destination Home or Self Fdc documented in this encounter Plan of Treatment Not on file documented as of this encounter Goals Goal Patient Goal Type Associated Problems Recent Progress Patient-Stated? Author HEMOGLOBIN A1C < 7.0 Result Component Type 2 diabetes mellitus ([facility]) 8.7(07/07/2015 5:05 EST) No Annmarie Vigil documented as of this encounter Visit Diagnoses Not on filedocumented in this encounter Care Teams Commercial Producer Relationship Specialty Start Date End Date Annette Sidhu APRN [address] [place] [phone] PCP - General 03/19/13 07/06/19 documented as of this encounter
--- OUTSIDE RECORDS SUMMARY | 2024-02-14 15:22 | XMS_ITS | Encounter Summary ---
Author Organization [facility] Address [address] [place] [address] Care Team Providers Care Electrical Design Technologist Name Role Phone Annette Sidhu APRN Primary Care Provider [phone] Reason for Visit * Reason Comments Non-stress Test Encounter Details Date Type Department Care Team (Late st Contact Info) Description 04/16/2014 10:00 EST Nurse Only [facility] - [address] [address] Unknown, Provider, Nurse, Bambi Diabetes mellitus, antepartum(648.03) (Primary Dx); Type 2 diabetes mellitus (CMS-HCC) [...] Progress Notes * Haim Méndez MD - 04/16/2014 1102 EST NST Report Baseline Heart Rate: 150 Accelerations: present Movement: present Decelerations: absent Contractions: absent Interpretation: reactive Haim Méndez MD 04/16/2014 11:02 documented in this encounter Plan of Treatment Not on file documented as of this encounter Goals Goal Patient Goal Type Associated Problems Recent Progress Patient-Stated? Author HEMOGLOBIN A1C < 7.0 Result Component Type 2 diabetes mellitus ([facility]) 8.7(07/07/2015 5:05 EST) Annmarie Lopez documented as of this encounter Visit Diagnoses Diagnosis Diabetes mellitus, antepartum(648.03)- Primary Diabetes mellitus, antepartum Type 2 diabetes mellitus ([facility]) Type II or unspecified type diabetes mellitus without mention of complication, not stated as uncontrolled Chronic hypertension with exacerbation during in third trimester documented in this encounter Care Teams Electrical Design Technologist Relationship Specialty Start Date End Date Annette Sidhu APRN [address] [place] [phone] PCP - General 03/19/13 07/06/19 documented as of this encounter
--- OUTSIDE RECORDS SUMMARY | 2024-02-14 15:22 | XMS_ITS | Encounter Summary ---
Author Organization [facility] Address [address] [place] [address] Care Team Providers Care Cartridge Belt Puncher Name Role Phone Annette Sidhu APRN Primary Care Provider Encounter Details Date Type Department Care Team (Latest Contact Info) Description 04/16/2014 11:56 EST - 04/16/2014 23:59 [facility] [place] [address] Unknown, Provider, Discharge Disposition: Home or Self [...] Yes 02/22/2014 documented as of this encounter Medications at [...] Code Departure Means Destination Home or Self Detention documented in this encounter Plan of Treatment Not on file documented as of this encounter Goals Goal Patient Goal Type Associated Problems Recent Progress Patient-Stated? Author HEMOGLOBIN A1C < 7.0 Result Component Type 2 diabetes mellitus [address]) 8.7(07/07/2015 5:05 EST) Annmarie Lopez documented as of this encounter Visit Diagnoses Not on filedocumented in this encounter Care Teams Cartridge Belt Puncher Relationship Specialty Start Date End Date Annette Sidhu APRN [address] [place] [phone] PCP - General 03/19/13 07/06/19 documented as of this encounter
--- OUTSIDE RECORDS SUMMARY | 2024-02-14 15:22 | XMS_ITS | Encounter Summary ---
Author Organization [facility] Address [address] [place] [address] Care Team Providers Care Railroad Carman Name Role Phone Annette Sidhu APRN Primary Care Provider [phone] Encounter Details Date Type Department Care Team (Late st Contact Info) Description 02/22/2014 Phlebotomy Only [address] [address] Mixing Machine Attendant, Outpatient Diabetes mellitus, antepartum(648.03); Supervision of other high-risk (V23.89); Type II or unspecified type diabetes mellitus without mention of complication, not stated as uncontrolled; Abnormal maternal glucose tolerance, antepartum; Type II or unspecified type diabetes mellitus with other specified manifestations, uncontrolled Social History Tobacco Use Types Packs/Day Years [...] Result Component Type 2 diabetes mellitus ([facility]) 8.7(07/07/2015 5:05 EST) No Annmarie Vigil documented as of this encounter Procedures Procedure Name Priority Date/Time Associated Diagnosis Comments FRUCTOSAMINE Routine 02/22/2014 14:55 EDT Type II or unspecified type diabetes mellitus without mention of complication, not stated as uncontrolled Abnormal maternal glucose tolerance, antepartum COMPLETE BLOOD COUNT Routine 02/22/2014 14:55 EDT Diabetes mellitus, antepartum(648.03) TSH Routine 02/22/2014 14:55 EDT Type II or unspecified type diabetes mellitus without mention of complication, not stated as uncontrolled T4 FREE Routine 02/22/2014 14:55 EDT Type II or unspecified type diabetes mellitus without mention of complication, not stated as uncontrolled HEMOGLOBIN A1C Routine 02/22/2014 14:55 EDT Supervision of other high-risk (V23.89) ANTIBODY SCREEN Routine 02/22/2014 14:50 EDT Diabetes mellitus, antepartum(648.03) documented in this encounter Results * T4 FREE (02/22/2014 14:55 EDT) Free T4 0.9 0.8 - 1.8 ng/dl [facility] Blood specimen (specimen) 02/22/2014 14:55 EDT 02/22/2014 16:31 EDT Eduard Pineda MD CHEMISTRY & BLOOD GAS ORDERABLES [facility] [address] [place] [address] * TSH (02/22/2014 14:55 EDT) TSH 0.67 0.35 - 5.00 uIU/ml [facility] Blood specimen (specimen) 02/22/2014 14:55 EDT 02/22/2014 16:31 EDT Eduard Pineda MD CHEMISTRY & BLOOD GAS ORDERABLES Performing Organization Address [facility] Co de Phone Number [facility] [address] [place] [address] * FRUCTOSAMINE (02/22/2014 14:55 EDT) Fructosamine, S 216 200 - 285 mcmol/L [facility] Comment: Performed by: [facility], [address], [place] [address], [employer] Board Certified Orthotist: Rose Lincoln, Ph.D. Blood specimen (specimen) 02/22/2014 14:55 EDT 02/22/2014 16:31 EDT Eduard Pineda MD CHEMISTRY & BLOOD GAS ORDERABLES Performing Organization Address [facility] de Phone Number [facility] [address] [place] [address] * HEMOGLOBIN A1C (02/22/2014 14:55 EDT) Pathologist [facility] Hemoglobin A1C 5.8 % [facility] [...] of treatment. Est Avg Glucose 120 mg/dl [facility] Comment: eAG represents the A1c result expressed as average glucose in mg/dl. Blood specimen (specimen) 02/22/2014 14:55 EDT 02/22/2014 16:17 EDT Charity Onofre MD CHEMISTRY & BLOOD GA S ORDERABLES Performing Organization Address [facility] Co de Phone Number [facility] [address] [place] [address] * (ABNORMAL) HEMAGRAM (02/22/2014 14:55 EDT) Pathologist [facility] WBC 15.39(H) 4.0 - 12.4 K/cmm [facility] RBC 3.81(L) 3.86 - 5.04 M/cmm [facility] Hemoglobin 12.5 11.6 - 15.2 gm/dl [facility] HCT 35.5 34.9 - 44.4 % [facility] MCV 93 81 - 98 fl [facility] MCH 32.9 26.7 - 33.3 pg [facility] MCHC 35.3 32.1 - 35.9 gm/dl [facility] PLT 276 141 - 320 K/cmm [facility] RDW-CV 12.4 11.7 - 14.6 % [facility] Blood specimen (specimen) 02/22/2014 14:55 EDT 02/22/2014 16:17 EDT Eduardo Friend MD HEMATOLOGY & PF4 ORD ERABLES Performing Organization Address [facility] Co de Phone Number [facility] [address] [place] [address] * ANTIBODY SCREEN (02/22/2014 14:50 EDT) Antibody Screen Negative [facility] Blood specimen (specimen) 02/22/2014 14:50 EDT Eduardo Friend MD BLOOD BANK TESTS [facility] documented in this encounter Visit Diagnoses Diagnosis Diabetes mellitus, antepartum(648.03) Diabetes mellitus, antepartum Supervision of other high-risk (V23.89) Supervision of other high-risk Type II or unspecified type diabetes mellitus without mention of complication, not stated as uncontrolled Abnormal maternal glucose tolerance, antepartum Type II or unspecified type diabetes mellitus with other specified manifestations, uncontrolled documented in this encounter Care Teams Railroad Carman Relationship Specialty Start Date End Date Annette Sidhu APRN [address] [place] [phone] PCP - General 03/19/13 07/06/19 documented as of this encounter
--- OUTSIDE RECORDS SUMMARY | 2024-02-14 15:22 | XMS_ITS | Encounter Summary ---
Author Organization [facility] Address [address] [place] [id number] Care Team Providers Care Back Tacker Name Role Phone Annette Sidhu APRN Primary Care Provider Encounter Details Date Type Department Care Team (Late st Contact Info) Description 03/08/2014 15:48 EST - 03/08/2014 23:59 [facility] Hospital Encounter [facility] [phone] Haim Méndez MD [address] [place] [address], [facility] [address] [place] [id number] Discharge Disposition: Home or Self Care Social [...] 648.03 DIABETES-ANTEPARTUM[ICD-9-CM] 250.00 DIABETES UNCOMPL ADULT-TYPE II[ICD-9-CM] 663.83 CORD COMPL NEC-ANTEPART[ICD-9-CM] documented in this encounter Medications at Time [...] 2 diabetes mellitus ([facility]) 8.7(07/07/2015 5:05 EST) Annmarie Lopez documented as of this encounter Procedures Procedure Name Priority Date/Time Associated Diagnosis Comments [facility] FOLLOW-UP 05/07/2014 9:13 EST [facility] BIOPHYSICAL PROFILE 04/30/2014 11:52 EST [facility] BIOPHYSICAL PROFILE 04/23/2014 15:52 EST [facility] FOLLOW-UP 04/09/2014 12:30 EST documented in this encounter Results * [facility] FOLLOW-UP (05/07/2014 9:13 EST) Anatomical Region Laterality Modality Other 05/07/2014 9:13 EST 05/07/2014 11:03 EST Narrative 05/07/2014 11:03 EST Indication Advanced maternal age. Diabetes, pregestational, type 2. BMI 32.0. History ======= General History Height 159 cm Height (ft) ?5 ft Height (in) ?3 in Previous Outcomes ?4 Para ?? 2 Children born (T) ??2 Living children (L) ?2 Abortions (A) ??1 Other: Mode of last delivery: Section Number of fetuses: 1. Maternal Assessment Height 159 cm Height (ft) ?5 ft Height (in) ?3 in Physical Exam Initial weight 81 kg Initial weight (lb) ?178 lb Initial BMI ?32.00 kg/m Dating ======= LMP on: ?08/31/2013 GA by LMP ??35 w + 4 d BITA by LMP : ? 06/07/2014 Conception: ?IVF Ovulation: not induced Ultrasound examination on: 05/07/2014 GA by U/S based upon: ??AC, BPD, Femur, HC GA by U/S ??35 w + 6 d BITA by U/S: ?06/05/2014 Assigned: ??Dating performed on 03/08/2014 Based on the LMP Assigned GA ?35 w + 4 d Assigned BITA: ??06/07/2014 General Evaluation Cardiac activity: present. FHR 160 bpm. movements: visualized. Presentation: cephalic, spine maternal left. Placenta: anterior. Amniotic fluid: normal. MVP 7.0 cm. ZHENG 19.7 cm. Q1 5.4 cm, Q2 5.3 cm, Q3 7.0 cm, Q4 1.9 cm. Anatomy Head / Brain Head: ??normal Head: ??Shape and size Parenchyma: ?normal Lateral ventricles: ?normal Midline falx: ??normal Thorax / Heart / Great Vessels 4-chamber view: ?normal Abdomen Stomach: ?? normal Stomach: ?? Presence and size Urinary Tract / Genitals Kidneys: ?? normal Kidneys: ?? Both kidneys Bladder: ?? normal Bladder: ?? Size and location Biometry Biometry BPD ?82.7 mm 5% 33w 2d Hadlock OFD ?112.5 mm ?43% 34w 4d Nicolaides HC 312.8 mm ?10% 35w 0d Hadlock AC 356.4 mm ?>99% 39w 4d Hadlock Femur ??69.5 mm 46% 35w 5d Hadlock Humerus ?63.0 mm 86% 38w 0d Peralta EFW ?3,191 g 89% Gibson Calculated by: Hadlock (ZMW-[id number]-FL) EFW (lb) ?? 7 lb EFW (oz) ?? 1 oz Cephalic index 0.74 ?7% Chitty HC / AC ?0.88 FL / BPD ?? 0.84 FL / AC ?0.20 MVP ?7.0 cm ZHENG ?19.7 cm FHR ?160 bpm Head / Face / Neck Forming Fixer 4.7 mm Biophysical Profile Qualitative AFV: 2. breathing movements: 2. Gross body movements: 2. tone: 2. Biophysical profile score: . DVD number 935, Duration: 9 minutes. Non Stress Test Reactive FHR: 2 - normal. Baseline rate 160 bpm. Method ======== Transabdominal ultrasound examination, Voluson E8. Limited by maternal habitus. Impression [id number] Follow-up obstetrical ultrasound This is a garcia gestation. biometry is consistent with prior dating. Except where noted above, the anatomy was not reviewed in detail as this is a follow-up study and the anatomy was previously assessed. Normal fluid and movement are noted. 36068 Biophysical Profile (including NST) See BPP score above. FHR baseline is 160- to L T D after APV for longer monitoring due to increased baseline. Follow-up Follow-up with weekly BPP's. Comment ========= This follow-up has been scheduled. Procedure Note 05/07/2014 Indication Advanced maternal age. Diabetes, pregestational, type 2. BMI 32.0. History ======= General History Height 159 cm Height (ft) 5 ft Height (in) 3 in Previous Outcomes 4 Para 2 Children born (T) 2 Living children (L) 2 Abortions (A) 1 Other: Mode of last delivery: Section Number of fetuses: 1. Maternal Assessment Height 159 cm Height (ft) 5 ft Height (in) 3 in Physical Exam Initial weight 81 kg Initial weight (lb) 178 lb Initial BMI 32.00 kg/m Dating ======= LMP on: 08/31/2013 GA by LMP 35 w + 4 d BITA by LMP : 06/07/2014 Conception: IVF Ovulation: not induced Ultrasound examination on: 05/07/2014 GA by U/S based upon: AC, BPD, Femur, HC GA by U/S 35 w + 6 d BITA by U/S: 06/05/2014 Assigned: Dating performed on 03/08/2014 Based on the LMP Assigned GA 35 w + 4 d Assigned BITA: 06/07/2014 General Evaluation Cardiac activity: present. FHR 160 bpm. movements: visualized. Presentation: cephalic, spine maternal left. Placenta: anterior. Amniotic fluid: normal. MVP 7.0 cm. ZHENG 19.7 cm. Q1 5.4 cm, Q2 5.3 cm, Q3 7.0 cm, Q4 1.9 cm. Anatomy Head / Brain Head: normal Head: Shape and size Parenchyma: normal Lateral ventricles: normal Midline falx: normal Thorax / Heart / Great Vessels 4-chamber view: normal Abdomen Stomach: normal Stomach: Presence and size Urinary Tract / Genitals Kidneys: normal Kidneys: Both kidneys Bladder: normal Bladder: Size and location Biometry Biometry BPD 82.7 mm 5% 33w 2d Hadlock OFD 112.5 mm 43% 34w 4d Nicolaides HC 312.8 mm 10% 35w 0d Hadlock AC 356.4 mm >99% 39w 4d Hadlock Femur 69.5 mm 46% 35w 5d Hadlock Humerus 63.0 mm 86% 38w 0d Peralta EFW 3,191 g 89% Gibson Calculated by: Hadlock ([id number]-FL) EFW (lb) 7 lb EFW (oz) 1 oz Cephalic index 0.74 7% Chitty HC / AC 0.88 FL / BPD 0.84 FL / AC 0.20 MVP 7.0 cm ZHENG 19.7 cm FHR 160 bpm Head / Face / Neck Forming Fixer 4.7 mm Biophysical Profile Qualitative AFV: 2. breathing movements: 2. Gross body movements: 2. tone: 2. Biophysical profile score: . DVD number 935, Duration: 9 minutes. Non Stress Test Reactive FHR: 2 - normal. Baseline rate 160 bpm. Method ======== Transabdominal ultrasound examination, Voluson E8. Limited by maternal habitus. Impression [id number] Follow-up obstetrical ultrasound This is a garcia gestation. biometry is consistent with prior dating. Except where noted above, the anatomy was not reviewed in detail as this is a follow-up study and the anatomy was previously assessed. Normal fluid and movement are noted. 95691 Biophysical Profile (including NST) See BPP score above. FHR baseline is 160- to L T D after APV for longer monitoring due to increased baseline. Follow-up Follow-up with weekly BPP's. Comment ========= This follow-up has been scheduled. Eduardo Friend MD IMG [facility] ORDERABLE S * [facility] BIOPHYSICAL PROFILE (04/30/2014 11:52 EST) Anatomical Region Laterality Modality Other 04/30/2014 11:5 2 EST 04/30/2014 12:23 EST Narrative 04/30/2014 12:23 EST Indication Diabetes, pregestational, type 2, Chronic hypertension. AMA. History ======= General History Height 159 cm [...] ======= LMP on: ?08/31/2013 GA by LMP ??34 w + 4 d BITA by LMP : ? 06/07/2014 Conception: ?IVF Ovulation: not induced Assigned: ??Dating performed on 03/08/2014 Based on the LMP Assigned GA ?34 w + 4 d Assigned BITA: ??06/07/2014 General Evaluation Cardiac activity: present. FHR 151 bpm. movements: visualized. Presentation: transverse, head maternal right. Placenta: anterior. Amniotic Fluid Assessment Normal amount. MVP 6.9 cm. ZHENG 23.8 cm. Q1 4.1 cm, Q2 6.9 cm, Q3 6.0 cm, Q4 6.7 cm. Biophysical Profile Qualitative AFV: 2. breathing movements: 2. Gross body movements: 2. tone: 2. Biophysical profile score: . DVD number 935. Non Stress Test Reactive FHR: 2 - normal. Baseline rate 150 bpm. Method ======== Transabdominal ultrasound examination, Voluson E8. Sufficient. Impression 69525 Biophysical Profile (including NST) This is a garcia transverse lie with head toward maternal right. Please see BPP score above. Follow-up Recommend follow-up with weekly BPPs (or semi-weekly NSTs with weekly fluid checks) and growth studies every 4 weeks. Comment ========= This follow-up has been scheduled. Procedure Note 04/30/2014 Indication Diabetes, pregestational, type 2, Chronic hypertension. AMA. History ======= General History Height 159 cm [...] ======= LMP on: 08/31/2013 GA by LMP 34 w + 4 d BITA by LMP : 06/07/2014 Conception: IVF Ovulation: not induced Assigned: Dating performed on 03/08/2014 Based on the LMP Assigned GA 34 w + 4 d Assigned BITA: 06/07/2014 General Evaluation Cardiac activity: present. FHR 151 bpm. movements: visualized. Presentation: transverse, head maternal right. Placenta: anterior. Amniotic Fluid Assessment Normal amount. MVP 6.9 cm. ZHENG 23.8 cm. Q1 4.1 cm, Q2 6.9 cm, Q3 6.0 cm, Q4 6.7 cm. Biophysical Profile Qualitative AFV: 2. breathing movements: 2. Gross body movements: 2. tone: 2. Biophysical profile score: . DVD number 429. Non Stress Test Reactive FHR: 2 - normal. Baseline rate 150 bpm. Method ======== Transabdominal ultrasound examination, Voluson E8. Sufficient. Impression [id number] Biophysical Profile (including NST) This is a garcia transverse lie with head toward maternal right. Please see BPP score above. Follow-up Recommend follow-up with weekly BPPs (or semi-weekly NSTs with weekly fluid checks) and growth studies every 4 weeks. Comment ========= This follow-up has been scheduled. Eduardo CARDONA [facility] ORDERABLE S * [facility] BIOPHYSICAL PROFILE (04/23/2014 15:52 EST) Anatomical Region Laterality Modality Other 04/23/2014 15:5 2 EST 04/23/2014 16:03 EST Narrative 04/23/2014 16:03 EST Indication Diabetes, pregestational, type 2. Advanced [...] ?08/31/2013 GA by LMP ??33 w + 4 d BITA by LMP : ? 06/07/2014 Conception: ?IVF Ovulation: not induced Assigned: ??Dating performed on 03/08/2014 Based on the LMP Assigned GA ?33 w + 4 d Assigned BITA: ??06/07/2014 General Evaluation Cardiac activity: present. FHR 150 bpm. movements: visualized. Presentation: transverse, head maternal right. Placenta: anterior. Amniotic Fluid Assessment Normal amount. MVP 9.0 cm. ZHENG 20.6 cm. Q1 5.1 cm, Q2 9.0 cm, Q3 4.5 cm, Q4 2.0 cm. Biophysical Profile Qualitative AFV: 2. breathing movements: 2. Gross body movements: 2. tone: 2. Biophysical profile score: . DVD number 932. Method ======== Transabdominal ultrasound examination, Voluson E8. Good view. Impression 29589 Biophysical Profile (without NST) This is a garcia gestation. See BPP score above. Follow-up Follow-up with weekly BPP's. Comment ========= This follow-up has been scheduled. Procedure Note 04/23/2014 Indication Diabetes, pregestational, type 2. Advanced maternal [...] 08/31/2013 GA by LMP 33 w + 4 d BITA by LMP : 06/07/2014 Conception: IVF Ovulation: not induced Assigned: Dating performed on 03/08/2014 Based on the LMP Assigned GA 33 w + 4 d Assigned BITA: 06/07/2014 General Evaluation Cardiac activity: present. FHR 150 bpm. movements: visualized. Presentation: transverse, head maternal right. Placenta: anterior. Amniotic Fluid Assessment Normal amount. MVP 9.0 cm. ZHENG 20.6 cm. Q1 5.1 cm, Q2 9.0 cm, Q3 4.5 cm, Q4 2.0 cm. Biophysical Profile Qualitative AFV: 2. breathing movements: 2. Gross body movements: 2. tone: 2. Biophysical profile score: . DVD number 932. Method ======== Transabdominal ultrasound examination, Voluson E8. Good view. Impression 14112 Biophysical Profile (without NST) This is a garcia gestation. See BPP score above. Follow-up Follow-up with weekly BPP's. Comment ========= This follow-up has been scheduled. Eduardo Friend MD [facility] ORDERABLE S * [facility] FOLLOW-UP (04/09/2014 12:30 EST) Anatomical Region Laterality Modality Other 04/09/2014 12:3 0 EST 04/09/2014 12:42 EST Narrative 04/09/2014 12:41 EST Indication Diabetes, pregestational, type 2. Placental lakes, Advanced maternal age, BMI 32.0. History ======= General History Height 159 cm Height (ft) ?5 ft Height (in) ?3 in Previous Outcomes ?4 Para ?? 2 Children born (T) ??2 Living children (L) ?2 Abortions (A) ??1 Other: Mode of last delivery: Section Number of fetuses: 1. Maternal Assessment Height 159 cm Height (ft) ?5 ft Height (in) ?3 in Physical Exam Initial weight 81 kg Initial weight (lb) ?178 lb Initial BMI ?32.00 kg/m Dating ======= LMP on: ?08/31/2013 GA by LMP ??31 w + 4 d BITA by LMP : ? 06/07/2014 Conception: ?IVF Ovulation: not induced Ultrasound examination on: 04/09/2014 GA by U/S based upon: ??AC, BPD, Femur, HC GA by U/S ??31 w + 5 d BITA by U/S: ?06/06/2014 Assigned: ??Dating performed on 03/08/2014 Based on the LMP Assigned GA ?31 w + 4 d Assigned BITA: ??06/07/2014 General Evaluation Cardiac activity: present. FHR 152 bpm. movements: visualized. Presentation: transverse, head maternal left. Placenta: anterior, right. Amniotic fluid: MVP 6.0 cm. ZHENG 17.1 cm. Q1 2.8 cm, Q2 2.6 cm, Q3 5.7 cm, Q4 6.0 cm. Anatomy Head / Brain Head: ??normal Head: ??Shape and size Parenchyma: ?normal Lateral ventricles: ?normal Midline falx: ??normal Thorax / Heart / Great Vessels 4-chamber view: ?normal Abdomen Stomach: ?? normal Stomach: ?? Presence and size Urinary Tract / Genitals Kidneys: ?? normal Kidneys: ?? Both kidneys Bladder: ?? normal Bladder: ?? Size and location Biometry Biometry BPD ?73.6 mm 3% 29w 4d Hadlock OFD ?102.2 mm ?30% 30w 1d Nicolaides HC 282.7 mm ?7% 31w 0d Hadlock AC 302.1 mm ?98% 34w 1d Hadlock Femur ??62.3 mm 56% 32w 2d Hadlock Humerus ?55.0 mm 61% Peralta EFW ?2,064 g 69% Gibson Calculated by: Hadlock ([id number]-FL) EFW (lb) ?? 4 lb EFW (oz) ?? 9 oz Cephalic index 0.72 ?4% Chitty HC / AC ?0.94 FL / BPD ?? 0.85 FL / AC ?0.21 MVP ?6.0 cm ZHENG ?17.1 cm FHR ?152 bpm Head / Face / Neck Forming Fixer 5.5 mm Method ======== Transabdominal ultrasound examination, Voluson E8. Sufficient. Impression 12735 Follow-up obstetrical ultrasound This is a garcia gestation. biometry is consistent with prior dating. Except where noted above, the anatomy was not reviewed in detail as this is a follow-up study and the anatomy was previously assessed. Normal fluid and movement are noted. Follow-up Follow-up as clinically indicated. Procedure Note 04/09/2014 Indication Diabetes, pregestational, type 2. Placental lakes, Advanced maternal age, BMI 32.0. History ======= General History Height 159 cm Height (ft) 5 ft Height (in) 3 in Previous Outcomes 4 Para 2 Children born (T) 2 Living children (L) 2 Abortions (A) 1 Other: Mode of last delivery: Section Number of fetuses: 1. Maternal Assessment Height 159 cm Height (ft) 5 ft Height (in) 3 in Physical Exam Initial weight 81 kg Initial weight (lb) 178 lb Initial BMI 32.00 kg/m Dating ======= LMP on: 08/31/2013 GA by LMP 31 w + 4 d BITA by LMP : 06/07/2014 Conception: IVF Ovulation: not induced Ultrasound examination on: 04/09/2014 GA by U/S based upon: AC, BPD, Femur, HC GA by U/S 31 w + 5 d BITA by U/S: 06/06/2014 Assigned: Dating performed on 03/08/2014 Based on the LMP Assigned GA 31 w + 4 d Assigned BITA: 06/07/2014 General Evaluation Cardiac activity: present. FHR 152 bpm. movements: visualized. Presentation: transverse, head maternal left. Placenta: anterior, right. Amniotic fluid: MVP 6.0 cm. ZHENG 17.1 cm. Q1 2.8 cm, Q2 2.6 cm, Q3 5.7 cm, Q4 6.0 cm. Anatomy Head / Brain Head: normal Head: Shape and size Parenchyma: normal Lateral ventricles: normal Midline falx: normal Thorax / Heart / Great Vessels 4-chamber view: normal Abdomen Stomach: normal Stomach: Presence and size Urinary Tract / Genitals Kidneys: normal Kidneys: Both kidneys Bladder: normal Bladder: Size and location Biometry Biometry BPD 73.6 mm 3% 29w 4d Hadlock OFD 102.2 mm 30% 30w 1d Nicolaides HC 282.7 mm 7% 31w 0d Hadlock AC 302.1 mm 98% 34w 1d Hadlock Femur 62.3 mm 56% 32w 2d Hadlock Humerus 55.0 mm 61% Peralta EFW 2,064 g 69% Gibson Calculated by: Hadlock ([id number]-FL) EFW (lb) 4 lb EFW (oz) 9 oz Cephalic index 0.72 4% Chitty HC / AC 0.94 FL / BPD 0.85 FL / AC 0.21 MVP 6.0 cm ZHENG 17.1 cm FHR 152 bpm Head / Face / Neck Forming Fixer 5.5 mm Method ======== Transabdominal ultrasound examination, Voluson E8. Sufficient. Impression [id number] Follow-up obstetrical ultrasound This is a garcia gestation. biometry is consistent with prior dating. Except where noted above, the anatomy was not reviewed in detail as this is a follow-up study and the anatomy was previously assessed. Normal fluid and movement are noted. Follow-up Follow-up as clinically indicated. Eduardo W Friend MD IMG [facility] ORDERABLE S documented in this encounter Visit Diagnoses Not on filedocumented in this encounter Care Teams Back Tacker Relationship Specialty Start Date End Date Annette Sidhu APRN [address] [place] [phone] PCP - General 03/19/13 07/06/19 documented as of this encounter
--- OUTSIDE RECORDS SUMMARY | 2024-02-14 15:22 | XMS_ITS | Encounter Summary ---
Author Organization [facility] Address [address] [place] [address] Care Team Providers Care Senior Chemical Engineer Name Role Phone Annette Sidhu APRN Primary Care Provider [phone] Encounter Details Date Type Department Care Team (Latest Contact Info) Description 02/22/2014 14:43 EDT - 02/22/2014 20:10 [place] [address] Unknown, Provider, Eduardo Friend MD [address] [place] [address] [place] [phone] Discharge Disposition: Auto Discharge Social History Tobacco [...] this encounter Discharge Diagnoses Diagnosis 648.03 DIABETES-ANTEPARTUM[ICD-9-CM] 648.83 ABN GLUCOSE-ANTEPARTUM[ICD-9-CM] V23.89 SUPERVISION OF OTHER HIGH-RISK [ICD-9-CM] 250.00 DIABETES UNCOMPL ADULT-TYPE II[ICD-9-CM] documented in [...] Component Type 2 diabetes mellitus ([facility]) 8.7(07/07/2015 5:05 EST) Annmarie Lopez documented as of this encounter Visit Diagnoses Not on filedocumented in this encounter Care Teams Senior Chemical Engineer Relationship Specialty Start Date End Date Annette Sidhu APRN [address] [place] [phone] PCP - General 03/19/13 07/06/19 documented as of this encounter
--- OUTSIDE RECORDS SUMMARY | 2024-02-14 15:22 | XMS_ITS | Encounter Summary ---
Author Organization [facility] Address [address] [place] [address] Care Team Providers Care Support Staff Name Role Phone Annette Sidhu APRN Primary Care Provider [phone] Reason for Visit * Reason Onset Date Comments Blood Glucose Review 04/13/2014 Encounter Details Date Type Department Care Team (Late st Contact Info) Description 04/13/2014 Telephone [facility] Obstetrics & Midwifery - [address] [address] Cary Christensen RN Blood Glucose Review Social [...] Telephone Encounter - Cary Christensen RN - 04/13/2014 1311 EST Call to [facility] to check in on her blood sugar readings. No answer, left voicemail message requestingpatient call M office back. [facility] specialty transformer assembler phone number given. documented in this encounter Plan of Treatment Not on file documented as of this encounter Goals Goal Patient Goal Type Associated Problems Recent Progress Patient-Stated? Author HEMOGLOBIN A1C < 7.0 Result Component Type 2 diabetes mellitus ([facility]) 8.7(07/07/2015 5:05 EST) No Annmarie Vigil documented as of this encounter Visit Diagnoses Not on filedocumented in this encounter Care Teams Support Staff Relationship Specialty Start Date End Date Annette Sidhu APRN [address] [place] [phone] PCP - General 03/19/13 07/06/19 documented as of this encounter
--- OUTSIDE RECORDS SUMMARY | 2024-02-14 15:23 | XMS_ITS | Encounter Summary ---
Author Organization [facility] Address [address] [place] [address] Care Team Providers Care Brief Writer Name Role Phone Annette Sidhu APRN Primary Care Provider [phone] Reason for Visit * Reason Onset Date Comments Blood Glucose Review 12/29/2013 Encounter Details Date Type Department Care Team (Late st Contact Info) Description 12/29/2013 Telephone [facility] OBGYN Services - [address] [address] Cary Christensen, RN Blood Glucose Review Social History Tobacco Use Types Packs/Day Years Used Date Smoking Tobacco: Smoker, Current Status Unknown Cigarettes 0.5 3 Smokeless Tobacco: Never Alcohol [...] Telephone Encounter - Cary Christensen RN - 12/29/2013 1320 EDT Received pt's blood glucose log this AM. Dr. Lerner reviewed, recommendation to maintain dosing of Metformin, no changes to regimen at this time. Call to [facility] to notify, message left on home voicemail, asked that she return call with questions or concerns. documented in this encounter Plan of Treatment Not on file documented as of this encounter Goals Goal Patient Goal Type Associated Problems Recent Progress Patient-Stated? Author HEMOGLOBIN A1C < 7.0 Result Component Type 2 diabetes mellitus ([facility]) 8.7(07/07/2015 5:05 EST) No Annmarie Vigil documented as of this encounter Visit Diagnoses Not on filedocumented in this encounter Care Teams Brief Writer Relationship Specialty Start Date End Date Annette Sidhu, GENERAL TELLER [address] [place] [phone] PCP - General 03/19/13 07/06/19 documented as of this encounter
--- OUTSIDE RECORDS SUMMARY | 2024-02-14 15:23 | XMS_ITS | Encounter Summary ---
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 12/31/2013 QUEtiapine (SEROQUEL) 200 mg tabletIndications:slee p Take 1 Tab by mouth at bedtime. Indications: sleep 7 Tab 0 05/19/2013 12/31/2013 simvastatin (ZOCOR) 20 mg tablet Take 1 Tab by mouth every evening. 90 Tab 3 08/12/2012 12/31/2013 documented as of this encounter Ordered Prescriptions Prescription Sig Dispensed Refills Start Date End Da te QUEtiapine (SEROQUEL) 200 mg tabletIndications:sleep Take 1 Tab by mouth at bedtime. Indications: sleep 7 Tab 0 05/19/2013 12/31/2013 DULoxetine (CYMBALTA) 30 mg capsuleIndications:major depressive disorder Take 1 Cap by mouth 2 times daily. Indications: MAJOR DEPRESSIVE DISORDER 1 Cap 0 05/19/2013 12/25/2013 Cholecalciferol, Vitamin D3, 1,000 unit tabletIndications:vitami n D deficiency Take 1 Tab by mouth daily. Indications: VITAMIN D DEFICIENCY 7 Tab 0 05/19/2013 12/31/2013 documented in this encounter Discharge Disposition Disposition Code Departure Means Destination Home or Self Care documented in this encounter Progress Notes * EXPERT WITNESS, IDANIA 2 - 05/25/2013 0918 EST * Sita Dobbins - 05/19/2013 1318 EST Pt discharged with belongings. No signs of distress. * Stephanie Velázquez - 05/19/2013 1300 EST Social Work Progress Note Intervention/Service: Discharge Note Met with pt in her room this am. Reviewed d/c plans and aftercare appointments. Pt has arranged forher father to pick her up today to bring her home. She has appts today with both her PCP and her psychiatrist. Pt also called [facility] and said she talked to Ursula Denson. She has an intake appt onT. Met again with pt with her father present and reviewed aftercare appts. Pt was future-oriented and seemed to be looking forward to her [facility] appt on . * AlyArlnee - 05/19/2013 0850 EST Family Medicine Consult Note: Reason for consult: -- s/p insulin administration, suicidal intent with hypoglycemia. Now with mildhyperglycemia, known DM. HPI: Patient doing well today. Reports that she is scheduled for discharge home today. Somewhat anxious about discharge and about diabetes management. Has been tolerating oral metformin okay. Doing well with dietary adherence to carb consistent diet. ROS: no abdominal pain, nausea, vomiting. BP 131/74 Pulse 106 Temp(Src) 36.3 ??C (97.3 ??F) (Tympanic) Resp 14 Ht 159 cm (62.6) Wt84.732 kg (186 lb 12.8 oz) BMI 33.52 kg/m2 SpO2 98% LMP 04/29/2013 Gen: No apparent distress, AAOx3 Heent: NCAT, EOMI, MMM Pulm: no respiratory distress Skin: no rashes, no bruising Labs: Results for HILDA JEAN ( ) as of 05/19/2013 08:52 Ref. Range 05/18/2013 08:09 05/18/2013 12:17 05/18/2013 17:04 05/18/2013 21:05 05/19/2013 07:50 Glucose, Fingerstick Latest Range: 70-100 mg/dl 126 (H) 145 (H) 146 (H) 134 (H) 142 (H) A/P: Hilda Jean is a 37y/o female with hx of DM2 s/p SI with 1500 units of insulin. She required D10 IVF to maintain her glucoses and was able to be weaned off from this 3 days ago prior to transport to in psychiatry. Her glucoses have been stable on oral metformin. DM2: Patient currently moderately well controlled on Metformin XR 2000 mg daily. Would not recommend any medication changes at this time. Patient does not warrant treatment with insulin at this time for her diabetes as her blood sugars have been stable on oral medications and it is not safe given her history of SA with insulin. Encouraged patient to dispose of remaining insulin supply at home upon discharge. Patient has an appointment this afternoon at the [facility] with her PCP at 5:15pm. If her glycemic control is not at goal (A1c >7) at next 3 month check I would consider adding another oral agent such as sitagliptin. I would avoid treatment with sulfonylureas that would still pose a risk of hypoglycemia. Will forward recommendations to patient's PCP. Patient to be discussed with Attending Salvador Corea MD, MPH PGY - 3 Family Medicine, [phone] Attestation: I saw and examined the patient 05/19/2013. I agree with the resident's/fellow's findings and plans as documented. Mrs. Jean is stable with well controlled blood sugars over the lastseveral days on current metformin regimen. Connected with psychiatrist and PCP at [facility] who will both see her today. Arlene Aly MD 05/19/2013 12:43 * Selvin Ratliff - 05/18/2013 8782 EST Leisure Group S/O Pt. attended Leisure activity group for 60 minutes. Pt's worked on various art projects in group this evening. Pt. Worked on coloring a canvas hat with markers. Pt. Colored with intensity and used bold colors. Pt indicated she was frustrated with her discharge process and vented to others in group. Pt. Was encouraged to speak to her Tx team if she had issues with the discharge process. Pt. Was observed to be red in the face at times. A/moderately anxious, inc soc P/continue attending groups * Rosario Justin MD - 05/18/2013 1601 EST Inpatient Psychiatry Daily Progress Note 05/18/13 Admit Date: 05/06/2013 Hospital day: 9 days Legal Status: Legal status: Voluntary Observation Level: Observation / visual check: Routine (Q hour day / travis, Q 1/2 hour night) Locus/Risk of Harm: Current locus of harm: 3 Reason for Admission/Chief Complaint: Suicide attempt Clinical Update/24-hour Events: Per nursing, slept 4 hours overnight. Attended several groups over the weekend. Irritable with multiple complaints about her care over the weekend. During much of today's session, she discussed concerns about her care over the weekend. Tolerated returning home on a pass. Denies SI currently and experienced no SI while at home. In speaking about having seen her two children over the weekend, affect improved notably. Requests family med check-in prior to discharging tomorrow to discuss managementof her diabetes and to address episodic hypertension and tachycardic episode from the weekend. Has maintained good control of BG levels since admission to psychiatry. Today expresses readiness for discharge tomorrow afternoon. [facility]. Discussed possibility of lamotrigine on outpatient basis. Pt discontinued Trileptal over the weekend. Tapering off duloxetine. Was at 60 mg BID and reduced by 30 mg over weekend. States she had not supported being on this medication but felt she did not have a choice, supports tapering off this. Pt experienced increased anxiety, sweats, palpitations, increased pulse on Saturday toward end of her pass and wonders if attributed to serotonin withdrawal, as suggested by another provider. Discussed that while it is a possibility, could also be attributed to discontinuation of Trileptal. Denies h/opanic attacks. Denies flu-like illness; received flu shot. Symptoms resolved. Open to further decreasing duloxetine dose. Past Family/Social History Update: - Reports having been in multiple antidepressants in past including: bupropion, citalopram, trazodone, fluoxetine, paroxetine, sertraline. - 05/15/13: family meeting - 05/13/13: family meeting - 05/11/13: Spoke with mother on phone after she had called earlier to express concern about pt. Pt had apparently called mother after meeting with team today and expressed discontent with lack of medication changes/additions and not being offered ECT as a treatment option. Current Facility-Administered Medications Medication Route Frequency ??? acetaminophen (TYLENOL) tablet 1,000 mg oral Q4H PRN ??? albuterol (VENTOLIN HFA) inhaler 2 Puff inhalation Q4H PRN ??? cyclobenzaprine (FLEXERIL) tablet 10 mg oral TID ??? dexmethylphenidate (FOCALIN XR) multiphase capsule capsule,ER multiphase 50- 50 15 mg oral BEFORE BREAKFAST & LUNCH ??? dextrose 50 % solution 12.5 g intravenous PRN ??? DULoxetine (CYMBALTA) capsule 30 mg oral DAILY ??? DULoxetine (CYMBALTA) capsule 60 mg oral QHS ??? flumazenil (ROMAZICON) 0.1 mg/mL injection ??? fluticasone (FLONASE) nasal spray 1 [place] nasal - both Daily PRN ??? glucagon (human recombinant) injection 1 mg intramuscular PRN ??? hydrOXYzine (ATARAX) tablet 25 mg oral TID PRN ??? ibuprofen (MOTRIN) tablet 600 mg oral Q6H PRN ??? insulin aspart (NOVOLOG FLEXPEN) injection subcutaneous TID WC ??? lidocaine (LIDODERM) patch Removal topical DAILY ??? lidocaine 5 % (LIDODERM) patch 1 Patch transdermal Q24H ??? metFORMIN (GLUCOPHAGE-XR) ER tablet 2,000 mg oral DAILY WITH DINNER ??? nicotine (NICOTROL) 10 mg inhaler 1 Inhaler inhalation Q2H PRN ??? nicotine inhaler (delivery device) inhalation PRN ??? QUEtiapine (SEROQUEL) tablet 200 mg oral USER SPECIFIED ??? simvastatin (ZOCOR) tablet 20 mg oral QPM ??? traMADol (ULTRAM) tablet 100 mg oral USER SPECIFIED Review of Systems: Hip and back pain (chronic). Poor sleep. Appetite intact. Mental Status Exam: woman with short blonde hair. Well groomed, dressed casually. Cooperative, calm. Intermittent eye contact. Speech spontaneous, r/r/v WNL. Mood is okay. Affect congruent with nearly full range. TP with linear with tight associations. TC without delusions or hallucinations. Displays a number of cognitive distortions such as [id number] thinking, overgeneralization, catastrophizing, anddisqualifying the positive. She denied SI on evaluation today, as well as over the weekend. [employer]. Judgment fair-limited. Can be impulsive. Physical Exam: BP 109/62 Pulse 86 Temp(Src) 36.2 ??C (97.2 ??F) (Tympanic) Resp 16 Ht 159 cm (62.6) Wt 84.732 kg (186 lb 12.8 oz) BMI 33.52 kg/m2 SpO2 97% LMP 04/29/2013 Data Review: Labs: Results for orders placed during the hospital encounter of 05/06/13 (from the past 24 hour(s)) GLUCOSE, GLUCOMETER Collection Time 05/17/13 17:01 Result Value Range Glucose, Fingerstick 210 (*) 70 - 100 mg/dl Circular Clerk ID [id number] GLUCOSE, GLUCOMETER Collection Time 05/18/13 8:09 Result Value Range Glucose, Fingerstick 126 (*) 70 - 100 mg/dl Circular Clerk ID [id number] GLUCOSE, GLUCOMETER Collection Time 05/18/13 12:17 Result Value Range Glucose, Fingerstick 145 (*) 70 - 100 mg/dl Circular Clerk ID [id number] Other studies: 05/16 C-reactive protein 1.2 (compared to 1.4 on 07/2007), D3 insufficient Assessment/Formulation: 37-year-old woman with a history of depressive disorder, PTSD, opiate abuse, pain disorder, and borderline personality disorder traits presenting with a chaotic life situation, recently overdosed on significant amount of Lantus, by report, treated for a number of days on the medical unit, stabilized medically, and transferred to psychiatry. In contrast to past records, the pt reports diagnoses ofbipolar disorder and ADHD given to her at [facility]. Mood diagnosis was Depressive Disorder NOS and stimulant medication was added as an adjunct to depression treatment. In terms of diagnostic clarification, the pt describes intense interpersonal relationships, mood lability, impulsivity and recurrent suicidal behavior in the context of relationship conflicts. She exhibits intense angerthat is at times difficult to control and holds unrealistic expectations within her relationships. These clinical characteristics are consistent with diagnostic criteria for BPD. Per APA guidelines, the treatment of BPD entails actively engaging the patient in the process of changing maladaptive patterns of behavior, with psychotherapy, and in particular DBT/CBT. In cases where pts with BPD have relied on medication, it is recommended that medication regimens be reevaluated as non-pharmaceutical treatments are favored. On admission, pt identified goals for her hospitalization as wanting to stay safe, get on the right medications, become more positive, learn to handle stressful situations, control her mood swings, and manage anxiety - all goals that would be well addressed in an Intensive O utpatient or Partial Hospitalization Program such as [facility] or [facility], particularly in the context of her BPD diagnosis. Her engagement with providers has waxed and waned since admission. Though she continues to hope formedication or ECT to relieve her symptoms, she has more recently expressed willingness to attend a partial hospitalization program on discharge. She has denied SI consistently, with the exception of expression of SI on one occasion about a week ago in the context of an approaching discharge date. She has a risk of acting out impulsively and has threatened to do this again if her needs are not metduring the current hospitalization. Given that the patient is currently meeting criteria for a diagnosis of and demonstrating behavior consistent with BPD, we will continue to recommend a CBT/DBT focused Intensive Outpatient Program or Partial Hospitalization Program. Two family meetings have takenplace, second one of which included Family and Patient Advocacy. As of the last meeting on 05/15, Hilda and her mother felt their list of concerns had been addressed for now and the meeting generally concluded on a positive note. Nonetheless, establishing a therapeutic alliance has continued to be quite challenging and this has led to further difficulties in communication and establishing an effective and acceptable treatment plan. On evaluation today, she is cooperative, engaged, and deniesSI. She tolerated passes off the unit well over the weekend and expresses readiness for discharge tomorrow afternoon. We indicated that the treatment team is available at time of discharge should herfamily have any questions or concerns. Able to address, come early in a lighthearted way, some of the issues and behaviors which have come up over the course of admission. At this time, she appears to have a good alliance with the team, displays essentially a full range of affect. She expresses read iness for discharge and commitment to followup with intensive outpatient (PHP) at [facility]. D3 insufficient and we'll replace. C-reactive protein slightly elevated, will not pursue further at this time. Diagnosis: [place] I: Depressive disorder NOS, r/o Bipolar disorder [place] II: Borderline personality disorder [place] III: Diabetes mellitus, type 2; Chronic hip and back pain; PCOS Plan: Mood d/o NOS: - Continue Focalin XR 15 mg BID as adjunct to depression treatment to address anergia and poor concentration associated with dysphoria - Decreased Cymbalta from 60 mg BID to 30 mg qAM and 60 mg qHS on Sat 05/16, further taper can be continued as an outpatient - Trileptal now discontinued (as of Sat 05/16) as this was a potential cause of pt's recent hyponatremia, Lamictal can be considered as an outpatient, the treatment team is not necessarily recommending this. - ECT consult is not recommended at this time Anxiety - Hydroxyzine 25 mg TID PRN anxiety Sleep: - Seroquel 200 mg qHS Hip/Back Pain: - Continue Tramadol 100 mg TID (resumed home med) - Continue Flexeril 10 mg TID (changed from PRN to scheduled to reflect home regimen on 05/08) - Lidocaine patch and heat wrap for chronic pain - Ibuprofen, acetaminophen PRN - Avoid opiates DM2, s/p hypoglycemia: - Continue Metformin XR 2000 mg - Continue Insulin aspart sliding scale with meals - Family med to see pt tomorrow prior to discharge to provide final recs re: diabetes mgmt (given pt's concerns about insulin; recent h/o insulin overdose) - Family med following; recs appreciated Hyponatremia: - Final set of lytes on morning of discharge to ensure normalizing trend maintained Other: - Nicotine replacement - Albuterol inhaler PRN - Flonase PRN - Vit D level of 14.5 considered insufficient - recommend 1000 IU daily Vit D on discharge - C-reactive protein noted 1.2. H/O similar level of 1.4 in 2007. Milieu: - CRUZ 3, routine observation - Encourage group attendance Discharge Plan: Expected discharge on 05/19 at 2 PM as established by pt. Plans to go to [facility] upon discharge. [facility] [address]. Only med to be called in is seroquel given recent increase. Otherwise has meds at home. Lynn Rutherford MD 05/18/2013 16:01 Psychiatry Attending Attestation: I have personally seen and examined the patient [id number]. Treatment plan reviewed with the team. I spent a total of 40 minutes with this patient in direct floor time and 25 minutes of that time was spent in counseling and coordination of care regarding status of symptoms, reviewing events of the weekend, reviewing medication and overall treatment plan, aftercare and discharge planning. I agree withand have edited in italics the findings and plan of care as documented in the resident's note. ROSARIO JUSTIN MD Pager [phone] Attending, Inpatient Psychiatry, [facility] * Sadie Webster RN - 05/18/2013 1358 EST Per her request, I met with patient to discuss some of her concerns. * Daiana Michaels MA - 05/18/2013 1315 EST Open Art: S/O: Pt sat in the group on the couch for 15 minutes, talking with others. She left and returned for the final 5 minutes of group. She did not do any art projects but had plans to color a hat. She voiced a complaint with the response she received from patient advocacy when she complained about the construction noise, having reportedly given the patient ear plugs. A: Pleasant affect. Social. Expressing frustrations. P: To continue to participate in groups. * Haim Irvin, PhD - 05/17/2013 1601 EST Coffee Talk S/O: The patient was already in the activity room at the onset of the session, having a cup of coffee and conversing with a peer. She engaged in dialogue with the AT and the other patients present inher room and shared that her medications were making here anxious, and nervous: they make my blood rate increase and I feel worst afterwards... Not sure if it's the dose or what it is, but it's not helping at all. Throughout the group, the patient's behavior was appropriate for the venue and she was able to interact in a positive and respectful manner. The patient attended this group for 60minutes. A: Pleasant affect, socially interactive, good eye contact. P: Continue group participation. * Marcin Armstrong MD PhD - 05/17/2013 0811 EST 05/17/2013 ATTENDING HEAD BANDER AND LINER OPERATOR NOTE: TODAY'S CHIEF COMPLAINT: I am so pissed off HOSPITAL DAY: LOS: 11 days HISTORY: D/W Nursing. Events of last 24 hours reviewed. 6+ hours of sleep. Used her pass yesterday which seemed to go well, but she was complaining of somatic symptoms when she came back on the unit.Her BP was elevated, but according to MHT, she had been doing exercise in the room. She recorded the tech doing her fingerstick with her phone. She says that she has documented that she had elevated vital signs that no one responded to and that it took too long to have it responded to. She denies having done exercise in her room, saying that she was down playing cards when she felt this way. She ascribes this to the hydroxyzine. I discuss with her that her initial feeling of her heart racing and the initial elevated BP may be related to the drop in duloxetine yesterday, but she says that thisisn't possible. She voices many complaints about the fact that she was not listened to medically yesterday and says that she has plans to go to the [facility] about it at discharge. I asked her if she felt that she was being listened to now, and she says yes. Her VS have returned to lower levels this morning. EXAM: Awake and alert. Speech clear and coherent. Memory and attention appear intact. Mood: a little down in the dumps Affect: restricted to low range. TP- LGD. TC-denies AVH/SI/HI. I/J- fair/fair BP 135/79 Pulse 92 Temp(Src) 34.9 ??C (94.8 ??F) (Tympanic) Resp 14 Ht 159 cm (62.6) Wt 84.732 kg (186 lb 12.8 oz) BMI 33.52 kg/m2 SpO2 98% LMP 04/29/2013 MEDS: Current Facility-Administered Medications Medication Route Frequency ??? acetaminophen (TYLENOL) tablet 1,000 mg oral Q4H PRN ??? albuterol (VENTOLIN HFA) inhaler 2 Puff inhalation Q4H PRN ??? cyclobenzaprine (FLEXERIL) tablet 10 mg oral TID ??? dexmethylphenidate (FOCALIN XR) multiphase capsule capsule,ER multiphase 50- 50 15 mg oral BEFORE BREAKFAST & LUNCH ??? dextrose 50 % solution 12.5 g intravenous PRN ??? DULoxetine (CYMBALTA) capsule 30 mg oral DAILY ??? DULoxetine (CYMBALTA) capsule 60 mg oral QHS ??? fluticasone (FLONASE) nasal spray 1 [place] nasal - both Daily PRN ??? glucagon (human recombinant) injection 1 mg intramuscular PRN ??? hydrOXYzine (ATARAX) tablet 25 mg oral TID PRN ??? ibuprofen (MOTRIN) tablet 600 mg oral Q6H PRN ??? insulin aspart (NOVOLOG FLEXPEN) injection subcutaneous TID WC ??? lidocaine (LIDODERM) patch Removal topical DAILY ??? lidocaine 5 % (LIDODERM) patch 1 Patch transdermal Q24H ??? metFORMIN (GLUCOPHAGE-XR) ER tablet 2,000 mg oral DAILY WITH DINNER ??? nicotine (NICOTROL) 10 mg inhaler 1 Inhaler inhalation Q2H PRN ??? nicotine inhaler (delivery device) inhalation PRN ??? QUEtiapine (SEROQUEL) tablet 200 mg oral USER SPECIFIED ??? simvastatin (ZOCOR) tablet 20 mg oral QPM ??? traMADol (ULTRAM) tablet 100 mg oral USER SPECIFIED ASSESSMENT: 37 y.o. female with Patient Active Problem List Diagnosis ??? Routine history and physical examination of adult ??? Type II diabetes mellitus without mention of complication ??? Polycystic ovaries ??? Contraceptive management ??? Insertion of (intrauterine) contraceptive device ??? Left buttock pain ??? Left hip pain ??? Low back pain ??? Pain of left thigh ??? Hyperlipidemia ??? Brachial plexus lesions ??? Shoulder pain ??? Pain in joint, pelvic region and thigh ??? Suicidal ideation ??? Insulin overdose ??? Depression ??? Unspecified episodic mood disorder ??? Suicide attempt by drug ingestion No acute change in presentation therefore we can continue with existing treatment plan. PLAN: - As per primary treatment team. Refer to orders and multidisciplinary team treatment plan. Isuspect that the elevation in VS yesterday was multifactorial -- including some mild serotonin withdrawal, anxiety, and possibly related to her exercising. I suggested to her that we would keep the Cy mbalta at the same dose today and she can discuss with Dr. Justin tomorrow. Marcin Armstrong MD,PHD Attending Psychiatrist coroner transport technician Pager [phone] * Marcin Armstrong MD PhD - 05/16/2013 0834 EST 05/16/2013 ATTENDING HEAD BANDER AND LINER OPERATOR NOTE: TODAY'S CHIEF COMPLAINT: Everything is fine HOSPITAL DAY: LOS: 10 days HISTORY: D/W Nursing. Events of last 24 hours reviewed. 5 hours of sleep. Not content with the painconsult that she received. She has passes today. Says that she is not feeling particularly well this morning, but thinks that she will feel better as the morning goes on and doesn't want to disappoint her children by not going on the pass. She denies any SI or HI and is excited to go off the unit for a while today. EXAM: Awake and alert. Speech clear and coherent. Memory and attention appear intact. Mood: a little down in the dumps Affect: restricted to low range. TP- LGD. TC-denies AVH/SI/HI. I/J- fair/fair BP 134/61 Pulse 84 Temp(Src) 35.2 ??C (95.3 ??F) (Tympanic) Resp 16 Ht 159 cm (62.6) Wt 84.732 kg (186 lb 12.8 oz) BMI 33.52 kg/m2 SpO2 98% LMP 04/29/2013 MEDS: Current Facility-Administered Medications Medication Route Frequency ??? acetaminophen (TYLENOL) tablet 1,000 mg oral Q4H PRN ??? albuterol (VENTOLIN HFA) inhaler 2 Puff inhalation Q4H PRN ??? cyclobenzaprine (FLEXERIL) tablet 10 mg oral TID ??? dexmethylphenidate (FOCALIN XR) multiphase capsule capsule,ER multiphase 50- 50 15 mg oral BEFORE BREAKFAST & LUNCH ??? dextrose 50 % solution 12.5 g intravenous PRN ??? DULoxetine (CYMBALTA) capsule 30 mg oral DAILY ??? DULoxetine (CYMBALTA) capsule 60 mg oral QHS ??? fluticasone (FLONASE) nasal spray 1 [place] nasal - both Daily PRN ??? glucagon (human recombinant) injection 1 mg intramuscular PRN ??? hydrOXYzine (ATARAX) tablet 25 mg oral TID PRN ??? ibuprofen (MOTRIN) tablet 600 mg oral Q6H PRN ??? insulin aspart (NOVOLOG FLEXPEN) injection subcutaneous TID WC ??? lidocaine (LIDODERM) patch Removal topical DAILY ??? lidocaine 5 % (LIDODERM) patch 1 Patch transdermal Q24H ??? metFORMIN (GLUCOPHAGE-XR) ER tablet 2,000 mg oral DAILY WITH DINNER ??? nicotine (NICOTROL) 10 mg inhaler 1 Inhaler inhalation Q2H PRN ??? nicotine inhaler (delivery device) inhalation PRN ??? OXcarbazepine (TRILEPTAL) tablet 150 mg oral BID ??? QUEtiapine (SEROQUEL) tablet 200 mg oral USER SPECIFIED ??? simvastatin (ZOCOR) tablet 20 mg oral QPM ??? traMADol (ULTRAM) tablet 100 mg oral USER SPECIFIED ASSESSMENT: 37 y.o. female with Patient Active Problem List Diagnosis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 travis, Q 1/2 hour night) Locus/Risk of Harm: Current locus of harm: 3 Reason for Admission/Chief Complaint: Suicide attempt Clinical Update/24-hour Events: 7 hours of sleep overnight documented, however, pt reports 3 hours of interrupted sleep. Attended 3groups yesterday. Discontinued fluid restriction. On interview today, patient presented as calm with no requests for medication changes. Reviewed treatment plan with pt going through problem list and management for each problem [id number]. Noted to pt that oxcarbazepine can cause hyponatremia as well as irritability, depression. Provided pt with the information and encouraged her to make the decision of tapering off or continuing the medication. Pain consult tomorrow. Notably, pt reports thatshe plans to go to [facility] or [facility] upon discharge. Inquires about differences between the two programs. Notes that another pt reported to her that [facility] saved her life and pt seems positively affected by this review. Reviewed short term disability paperwork for duration she will need for an outpatient program. Past Family/Social History Update: - Reports having been in multiple antidepressants in past including: bupropion, citalopram, trazodone, fluoxetine, paroxetine, sertraline. - 05/15/13: family meeting planned - 05/13/13: family meeting - 05/11/13: Spoke with mother on phone after she had called earlier to express concern about pt. Pt had apparently called mother after meeting with team today and expressed discontent with lack of medication changes/additions and not being offered ECT as a treatment option. Current Facility-Administered Medications Medication Route Frequency ??? acetaminophen (TYLENOL) tablet 1,000 mg oral Q4H PRN ??? albuterol (VENTOLIN HFA) inhaler 2 Puff inhalation Q4H PRN ??? cyclobenzaprine (FLEXERIL) tablet 10 mg oral TID ??? dexmethylphenidate (FOCALIN XR) multiphase capsule capsule,ER multiphase 50- 50 15 mg oral BEFORE BREAKFAST & LUNCH ??? dextrose 50 % solution 12.5 g intravenous PRN ??? DULoxetine (CYMBALTA) capsule 60 mg oral BID ??? fluticasone (FLONASE) nasal spray 1 [place] nasal - both Daily PRN ??? glucagon (human recombinant) injection 1 mg intramuscular PRN ??? hydrOXYzine (ATARAX) tablet 25 mg oral TID PRN ??? ibuprofen (MOTRIN) tablet 600 mg oral Q6H PRN ??? insulin aspart (NOVOLOG FLEXPEN) injection subcutaneous TID WC ??? lidocaine (LIDODERM) patch Removal topical DAILY ??? lidocaine 5 % (LIDODERM) patch 1 Patch transdermal Q24H ??? metFORMIN (GLUCOPHAGE-XR) ER tablet 2,000 mg oral DAILY WITH DINNER ??? nicotine (NICOTROL) 10 mg inhaler 1 Inhaler inhalation Q2H PRN ??? nicotine inhaler (delivery device) inhalation PRN ??? OXcarbazepine (TRILEPTAL) tablet 300 mg oral BID ??? QUEtiapine (SEROQUEL) tablet 200 mg oral USER SPECIFIED ??? simvastatin (ZOCOR) tablet 20 mg oral QPM ??? traMADol (ULTRAM) tablet 100 mg oral USER SPECIFIED Review of Systems: Hip and back pain (chronic). Poor sleep. Appetite intact. Mental Status Exam: woman with short blonde hair. Well groomed, dressed casually. Cooperative, calm. Intermittent eye contact. Speech spontaneous, r/r/v WNL. Mood is melancholy. Affect incongruent with some range. Smiles at times, even small jokes. Denies SI. No paranoid or delusional thoughts evident. TP linear with tight associations. TC with notably less focus on medications; notable for cognitive distortions (ngy-pe-wnhgral thinking), negativity. No AH/VH. Insight limited. Judgment fair-limited. Physical Exam: BP 123/71 Pulse 100 Temp(Src) 35.8 ??C (96.4 ??F) (Tympanic) Resp 16 Ht 159 cm (62.6) Wt84.732 kg (186 lb 12.8 oz) BMI 33.52 kg/m2 SpO2 96% LMP 04/29/2013 Data Review: Labs: Results for orders placed during the hospital encounter of 05/06/13 (from the past 24 hour(s)) GLUCOSE, GLUCOMETER Collection Time 05/13/13 17:06 Result Value Range Glucose, Fingerstick 129 (*) 70 - 100 mg/dl Circular Clerk ID [id number] GLUCOSE, GLUCOMETER Collection Time 05/13/13 21:07 Result Value Range Glucose, Fingerstick 203 (*) 70 - 100 mg/dl Circular Clerk ID [id number] GLUCOSE, GLUCOMETER Collection Time 05/14/13 7:46 Result Value Range Glucose, Fingerstick 124 (*) 70 - 100 mg/dl Circular Clerk ID [id number] ELECTROLYTES Collection Time 05/14/13 7:54 Result Value Range Sodium 136 136 - 145 mEq/L Potassium 4.4 3.5 - 5.0 mEq/L Chloride 100 96 - 110 mEq/L CO2 26 24 - 32 mEq/L GLUCOSE, GLUCOMETER Collection Time 05/14/13 12:03 Result Value Range Glucose, Fingerstick 130 (*) 70 - 100 mg/dl Circular Clerk ID [id number] Other studies:N/A Assessment/Formulation: 37-year-old woman with a history of depressive disorder, PTSD, opiate abuse, pain disorder, and borderline personality disorder traits presenting with chaotic life situation, recently overdosed on significant amount of Lantus, by report, treated for a number of days on the medical unit, now stabilized medically. In contrast to past records, the pt reports diagnoses of bipolar disorder and ADHD given to her at [facility]. Mood diagnosis was Depressive Disorder NOS and stimulant medication was added as an adjunct to depression treatment. In terms of diagnostic clarification, the pt describes intense interpersonal relationships, mood lability, impulsivity and recurrent suicidal behavior in the context of relationship conflicts. She exhibits intense anger that is at times difficult to control and holds unrealistic expectations within her relationships. These clinical characteristics are consistent with diagnostic criteria for BPD. Per APA guidelines, the treatment of BPD entails a ctively engaging the patient in the process of changing maladaptive patterns of behavior, with psychotherapy, and in particular DBT/CBT. In cases where pts with BPD have relied on medication, it is recommended that medication regimens be reevaluated as non-pharmaceutical treatments are favored. On admission, pt identified goals for her hospitalization as wanting to stay safe, get on the right medications, become more positive, learn to handle stressful situations, control her mood swings, and manage anxiety - all goals that would be well addressed in an Intensive Outpatient or Partial Hospitalization Program such as [facility] or [facility], particularly in the context of her BPD diagnosis. Her engagement with providers prior to today has been limited and dismissive at times. Relative to her desire for medication changes as a cure, she now expresses willingness to attend [facility] or [facility] on discharge. Today she denies SI and notably expressed suicidality 1-2 days ago in the context of discharge earlier than she had desired (despite having identified the discharge date). She has a risk of acting out impulsively and apparently is threatening to do this again if her needs are not met during the current hospitalization. She has had difficulty elaborating what she feels would be helpful, other than ECT. Given that the patient is currently meeting criteria for a diagnosis of and demonstrating behavior consistent with BPD, we will continue to recommend an Intensive OutpatientProgram or Partial Hospitalization Program and limit the addition of medications. A second family meeting on 05/15 with parents and patient will allow further opportunity to review her presentation, address concerns, and explore treatment and aftercare options. We will remain open to exploring options with her particularly with consultation from Family Medicine, Pain, and Pharmacy. Attempting to establish therapeutic alliance, but for unclear reasons, Hilda is continuing to resist team's attempts to establish acceptable treatment plan. Today's meeting was a much more positive meeting, however. Diagnosis: [place] I: Depressive disorder NOS, r/o Bipolar disorder [place] II: Borderline personality disorder [place] III: Diabetes mellitus, type 2; Chronic hip and back pain; PCOS Plan: Mood d/o NOS: - Continue Focalin XR 15 mg BID (no formal diagnosis of ADHD, but prescribed as adjunct to depression treatment to address anergia and poor concentration associated with her dysphoria) - Continue Cymbalta 60 mg BID - Decrease Trileptal 300 mg BID to 150 mg BID as this is potential cause of pt's recent hyponatremia (pt indicates med is for pain) - Will continue to review medication regimen with eco industrial development consultant, Dr. Ba Matson - ECT consult is not recommended at this time Anxiety - Hydroxyzine 25 mg TID PRN anxiety Sleep: - Seroquel 200 mg qHS Hip/Back Pain: - Tramadol 100 mg TID (resumed home med) - Flexeril 10 mg TID (changed from PRN to scheduled to reflect home regimen on 05/08) - Lidocaine patch and heat wrap for chronic pain - Ibuprofen, acetaminophen PRN - Avoid opiates - Pain Consult Dr. Eduardo Flynn on Saturday - Consider orthopedic Consult, perhaps as OP DM2, s/p hypoglycemia: - Continue Metformin XR 2000 mg - Continue Insulin aspart sliding scale with meals - Family med following; recs appreciated Hyponatremia: - Fluid restriction discontinued 05/13 - Taper Trileptal Other: - Nicotine replacement - Albuterol inhaler - Flonase Milieu: - CRUZ 3, routine observation - Encourage group attendance Discharge Plan: Initial tentative discharge date established with Hilda earlier in week not feasible at this time. Will extend into next week and re-assess. Plans to go to [facility] or [facility] upon discharge. Lynn Rutherford MD 05/14/2013 15:24 Psychiatry Attending Attestation: I have personally seen and examined the patient [id number]. Treatment plan reviewed with the team. I spent a total of 45 minutes with this patient in direct floor time and 30 minutes of that time was spent in counseling and coordination of care regarding status of symptoms, med mgmt, attempt to build therapeutic alliance, aftercare planning. I agree with and have edited in italics the findings and plan of care as documented in the resident's note. ROSARIO JUSTIN MD Pager [phone] Attending, Inpatient Psychiatry, [facility] * Hailee Douglass - 05/13/2013 1807 EST Karaoke S/O: Pt chose songs and sang along with the music and socialized with her peers. It's been a good group. A: engaged, inc in relaxation, improved mood, social, brighter affect. P: to continue to participate in groups to increase coping skills. * Stephanie Velázquez - 05/13/2013 1627 EST Social Work Progress Note Intervention/Service: Couples, family, work Meeting with pt and her parents today in a conference room with Dr Rutherford and Dr Justin. Both pt and her parents reporting concerns/questions re pt's treatment. Dr Rutherford and Dr Justin gave information re pt's diagnoses, particularly BPD and what that indicated in terms of treatment options. We allrecommended that pt consider attending a PHP like [facility] or [facility], which she initially was oppo sed, stating that another pt told her he did not find [facility] helpful, but then accepted more information re the programs. Pt's gave her brochure of [facility] to her parents to peruse. Parents noted upset that meeting started late and they did not have enough time to review their concerns. All, ultimately, agreed to have another meeting on Saturday. Parents reported they have contacted [facility] and Pt Advocacy to report their concerns and request they attend the next family meeting. Pt complained that medication changes have not been made but stopped pressing this when Dr Ansarixplained re OP therapies being the treatment of choice for BPD. Will give pt more info re [facility] and [facility] tomorrow if she is more open to this. * Hailee Douglass - 05/13/2013 1526 EST Cognitive Group: S/O: Pt participated in the discussion and identified a problem and what she experienced in five areas of her life: environment, physical reactions, moods, behaviors and thoughts. Pt completed the worksheet and her problem was: doctors being a half hour late for a meeting and their failure to notify her that they would be late and their failure to write a pass for her. She shared her work with the group and then focused on a self help strategy and evidence that did and did not support her thoughts. She identified that talking about her feelings, writing down questions, and staying in the present would be helpful. A: engaged, increasing cognitive skills, full affect, benefited from the group. P: To continue to participate in group and increase coping skills. * Nae Garza - 05/13/2013 1419 EST Medical Student Addendum: Additional Collateral Dr. Jasper Lerma ([facility]) at [phone] Lerma at [facility] today, 05/13/13. Dr. Lerma signed off on Hilda's discharge summary from [facility], where she was hospitalized 12/12-12/19 2012 due to SI in the context of a near-lethal suicide attempt one year prior to presentation at [facility]. Discussed with Dr. Lerma Hilda's statements that she was - in her words - diagnosed with bipolar disorder at [facility] at the [facility]. Also disclosed that Hilda's mother has stated that Hilda received a diagnosis of borderline personality disorder at [facility]. Dr. Lerma told me that, as stated in the discharge summary, her final diagnoses at the time of discharge were depressive disorder (296.8), PTSD (309.81), opiateabuse (305.5) and pain disorder (307.8). He again reiterated that the Focalin was prescribed for anergia and poor concentration and not for ADHD. Annette Maldonado ([employer]ING M[employer] OPERATOR HELPER) at [facility] can be reached through [employer]anch[employer], the community resource consultant ([employer]) at [phone] Reached Hilda's PCP, Annette Maldonado at [facility] today 05/13/13. She has been Hilda's PCP only since this past summer. Ryan's previous psychiatric diagnoses were discussed. MS3 explained that the diagnoses from [facility] d/c summary are not consistent with what Hilda and family believe she was diagnosedwith there. Annette says that she is not aware of Hilda officially having received a diagnosis of ADHD, BPD or BPAD prior to [facility]. Upon sharing with Annette that the team here is beginning to see some characteristics of BPD emerge, she cautioned that while her interactions with Hilda have been limited and not strictly from a psychiatric perspective, she has herself wondered at times whether Hilda has exhibited these consistent with BPD. She also clarified that Ryan has always denied domestic violence; however, Hilda's provider felt that there has always been a correlation between Hilad'srelationships and her depression. She reiterates that Hilda has said to her on numerous occassions, I always push people away. Lakesha Garza (MS3) 14:36 05/13/2013 pager [phone] * Daiana Michaels, [place] - 05/13/2013 8746 EST Daily Goals: S/O: Pt reported feeling anxious due to an upcoming meeting with family and her treatment team, for which she was up last night researching her rights as a patient. Pt stated, however, that she wastrying to stay calm. Pt expressed frustration with her care here. She participated in the exercise of writing her schedule for the day, which included attending groups, her meeting, caring for her back, and reading. Pt offered compliments to a male peer (BV), saying she enjoys being around him and calling him a great man. A: Pleasant affect. Feeling frustrated/angry with her tx team. Engaged and attentive. P: To continue to participate in groups * Rosario Justin MD - 05/13/2013 0809 EST Inpatient Psychiatry Daily Progress Note 05/13/2013 Admit Date: 05/06/2013 Hospital day: LOS: 7 days Legal Status: Legal status: Voluntary Observation Level: Observation / visual check: Routine (Q hour day / travis, Q 1/2 hour night) Locus/Risk of Harm: Current locus of harm: 3 Reason for Admission/Chief Complaint: Suicide attempt Clinical Update/24-hour Events: Slept 7 hours overnight. No group attendance yesterday, but did attend groups today. Perseverative about multiple complaints she has with treatment team. Strong tendency to split. Family meeting conducted today with pt, parents, and treatment team. Pt and mother identified concerns about not havinga treatment plan, nothing being done for her, not having the right medications. Request for 30 minute break off unit to smoke with father following meeting was granted. Order had to be placed prior to pt leaving unit and parents unwilling to wait. Pt views this as yet another failure on the part of the treatment team. Discussed diagnoses and recommended treatment as means of attempting to address pt and parent concerns. Identified depression, PTSD, and borderline personality disorder as primary diagnoses. Pt underimpression that diagnoses from prior stay at [facility] were bipolar disorder, ADHD, and PTSD. [facility] discharge summary states otherwise and diagnoses further clarified directly with her [facility] provider. After clarifying diagnoses, discussed appropriate treatment options with focus on CBT/DBT as being the most helpful for BPD. Discussed role of medication in treating depression, notingthat pt has been on multiple antidepressants in past which have been ineffective. Currently she is o n maximum dose of duloxetine and there are few other appropriate antidepressant options for her to try. Again explained that CBT has far stronger indications for her diagnosis than ECT, which she hasrequested multiple times. Pt and family expressing increasing dissatisfaction and anger toward end of meeting; felt they needed more time to address concerns and questions and a follow-up family meeti linsey was scheduled for 05/15. Pt noted by staff to be angry and agitated following meeting. Refused her FS check and lunch. Throughout family mtg, pt often referring to what other pts have said about CBT, what medications/treatments other pts are receiving, what other pts are getting and she is not. Past Family/Social History Update: Additional collateral as written up by MS3: Dr. Jasper Lerma ([facility]) at [phone] Lerma at [facility] today, 05/13/13. Dr. Lerma signed off on Hilda's discharge summary from [facility], where she was hospitalized 12/12-12/19 2012 due to SI in the context of a near-lethal suicide attempt one year prior to presentation at [facility]. Discussed with Dr. Lerma Hilda's statements that she was - in her words - diagnosed with bipolar disorder and ADHD at the [facility]. Also disclosed that Hilda's mother has stated that Hilda received a diagnosis of borderline personality disorder at [facility]. Dr. Lerma told me that, as stated in the discharge summary,her final diagnoses at the time of discharge were depressive disorder (296.8), PTSD (309.81), opiate abuse (305.5) and pain disorder (307.8). He again reiterated that the Focalin was prescribed for anergia and poor concentration and not for ADHD. Annette Maldonado (ROLLING MILL OPERATOR HELPER) at [facility] can be reached through Panchito the community resource consultant ([employer] [facility]) at [phone] Reached Hilda's PCP, Annette Maldonado at [facility] today 05/13/13. She has been Hilda's PCP only since this past summer. Ryan's previous psychiatric diagnoses were discussed. MS3 explained that the diagnoses from [facility] d/c summary are not consistent with what Hilda and family believe she was diagnosedwith there. Annette says that she is not aware of Hilda officially having received a diagnosis of ADHD, BPD or BPAD prior to [facility]. Upon sharing with Annette that the team here is beginning to see some characteristics of BPD emerge, she cautioned that while her interactions with Hilda have been limited and not strictly from a psychiatric perspective, she has herself wondered at times whether Hilda has exhibited these consistent with BPD. She also clarified that Ryan has always denied domestic violence; however, Hilda's provider felt that there has always been a correlation between Hilda'srelationships and her depression. She reiterates that Hilda has said to her on numerous occassions, I always push people away. - Reports having been in multiple antidepressants in past including: bupropion, citalopram, trazodone, fluoxetine, paroxetine, sertraline. 05/13/13: family meeting 05/11/13: Spoke with mother on phone after she had called earlier to express concern about pt. Pt had apparently called mother after meeting with team today and expressed discontent with lack of medication changes/additions and not being offered ECT as a treatment option. Current Facility-Administered Medications Medication Route Frequency ??? acetaminophen (TYLENOL) tablet 1,000 mg oral Q4H PRN ??? albuterol (VENTOLIN HFA) inhaler 2 Puff inhalation Q4H PRN ??? cyclobenzaprine (FLEXERIL) tablet 10 mg oral TID ??? dexmethylphenidate (FOCALIN XR) multiphase capsule capsule,ER multiphase 50- 50 15 mg oral BEFORE BREAKFAST & LUNCH ??? dextrose 50 % solution 12.5 g intravenous PRN ??? DULoxetine (CYMBALTA) capsule 60 mg oral BID ??? fluticasone (FLONASE) nasal spray 1 [place] nasal - both Daily PRN ??? glucagon (human recombinant) injection 1 mg intramuscular PRN ??? hydrOXYzine (ATARAX) tablet 25 mg oral TID PRN ??? ibuprofen (MOTRIN) tablet 600 mg oral Q6H PRN ??? insulin aspart (NOVOLOG FLEXPEN) injection subcutaneous TID WC ??? lidocaine (LIDODERM) patch Removal topical DAILY ??? lidocaine 5 % (LIDODERM) patch 1 Patch transdermal Q24H ??? metFORMIN (GLUCOPHAGE-XR) ER tablet 2,000 mg oral DAILY WITH DINNER ??? nicotine (NICOTROL) 10 mg inhaler 1 Inhaler inhalation Q2H PRN ??? nicotine inhaler (delivery device) inhalation PRN ??? OXcarbazepine (TRILEPTAL) tablet 300 mg oral BID ??? QUEtiapine (SEROQUEL) tablet 200 mg oral USER SPECIFIED ??? simvastatin (ZOCOR) tablet 20 mg oral QPM ??? traMADol (ULTRAM) tablet 100 mg oral USER SPECIFIED Review of Systems: Hip and back pain (chronic). Poor sleep. Appetite intact. Mental Status Exam: woman with short blonde hair. Well groomed, dressed casually. Hostile at times. Intermittent eye contact. Makes hand motions, pointing at team members directing them to stop talking. Interrupts others while they are speaking. Speech spontaneous, r/r/v WNL. Mood is angry, irritable. Affectcongruent with some range. Does not spontaneously endorse SI, but threatens suicide in context of discharge if planned for this week. No paranoid or delusional thoughts evident. TP linear with tight associations. TC with focus on medications, notable for negativity, helplessness; notable for cognitive distortions (ewq-wh-lkcwpja thinking); perseverative about perceived failures of the treatment team. No AH/VH. Insight limited. Judgment fair-limited. Physical Exam: BP 141/78 Pulse 117 Temp(Src) 36.2 ??C (97.2 ??F) (Tympanic) Resp 16 Ht 159 cm (62.6) Wt84.732 kg (186 lb 12.8 oz) BMI 33.52 kg/m2 SpO2 96% LMP 04/29/2013 Data Review: Labs: Results for orders placed during the hospital encounter of 05/06/13 (from the past 24 hour(s)) GLUCOSE, GLUCOMETER Collection Time 05/12/13 17:15 Result Value Range Glucose, Fingerstick 149 (*) 70 - 100 mg/dl Circular Clerk ID [id number] GLUCOSE, GLUCOMETER Collection Time 05/12/13 20:50 Result Value Range Glucose, Fingerstick 173 (*) 70 - 100 mg/dl Circular Clerk ID [id number] GLUCOSE, GLUCOMETER Collection Time 05/13/13 7:54 Result Value Range Glucose, Fingerstick 150 (*) 70 - 100 mg/dl Circular Clerk ID [id number] Other studies:N/A Assessment/Formulation: 37-year-old woman with a history of depressive disorder, PTSD, opiate abuse, pain disorder, and borderline personality disorder traits presenting with chaotic life situation, recently overdosed on significant amount of Lantus, by report, treated for a number of days on the medical unit, now stabilized medically. In contrast to past records, the pt reports diagnoses of bipolar disorder and ADHD given to her at [facility]. Mood diagnosis was Depressive Disorder NOS and stimulant medication was added as an adjunct to depression treatment. In terms of diagnostic clarification, the pt describes intense interpersonal relationships, mood lability, impulsivity and recurrent suicidal behavior in the context of relationship conflicts. She exhibits intense anger that is at times difficult to control and holds unrealistic expectations within her relationships. These clinical characteristics are consistent with diagnostic criteria for BPD. Per APA guidelines, the treatment of BPD entails a ctively engaging the patient in the process of changing maladaptive patterns of behavior, with psychotherapy, and in particular DBT/CBT. In cases where pts with BPD have relied on medication, it is recommended that medication regimens be reevaluated as non-pharmaceutical treatments are favored. On admission, pt identified goals for her hospitalization as wanting to stay safe, get on the right medications, become more positive, learn to handle stressful situations, control her mood swings, and manage anxiety - all goals that would be well addressed in an Intensive Outpatient or Partial Hospitalization Program such as [facility] or [facility], particularly in the context of her BPD diagnosis. We continue to encourage groups,and she was able to attend some groups today. Her engagement with providers is limited and dismissive at times. She desires a cure or quick fix treatment and is unwilling to be proactive in creating change for herself - repeatedly requests medication changes, the addition of lurasidone, ECT, etc. Up until yesterday's meeting, the patient denied any thoughts of SIsince arriving on the unit, but following the meeting endorsed suicidality and reportedly made suicidal threats in the context of a possible discharge later this week (this despite the pt having initially identified a discharge date of later this week). She has a risk of acting out impulsively and apparently is threatening to do this again if her needs are not met during the current hospitalization. She has not been able to elaborate what she feels would be helpful, other than ECT. Given thatthe patient is currently meeting criteria for a diagnosis of and demonstrating behavior consistent with BPD, we will continue to recommend [facility] and limit the addition of medications. A second family meeting on 05/15 with parents and patient will allow further opportunity to review her presentation, address concerns, and explore treatment and aftercare options.We will remain open to exploringoptions with her particularly with consultation from Family Medicine, Pain, and Pharmacy. Diagnosis: Waverly I: Depressive disorder NOS, r/o Bipolar disorder Waverly II: Borderline personality disorder Waverly III: Diabetes mellitus, type 2; Chronic hip and back pain; PCOS Plan: Mood d/o NOS: - Continue Focalin XR 15 mg BID (no formal diagnosis of ADHD, but prescribed as adjunct to depression treatment to address anergia and poor concentration associated with her dysphoria) - Continue Cymbalta 60 mg BID - Contniue Trileptal 300 mg BID (pt indicates this is for pain) for now - will review medication regimen with [employer] consultant, Dr. Ba Matson - ECT consult is not recommended at this time Anxiety - Hydroxyzine 25 mg TID PRN anxiety Sleep: - Seroquel 200 mg qHS Hip/Back Pain: - Tramadol 100 mg TID (resumed home med) - Flexeril 10 mg TID (changed from PRN to scheduled to reflect home regimen on 05/08) - Lidocaine patch and heat wrap for chronic pain - Ibuprofen, acetaminophen PRN - Avoid opiates due to broken past opiate contract, h/o opiate abuse - Pain Consult Dr. Eduardo Flynn on Saturday - Consider orthopedic Consult, perhaps as OP DM2, s/p hypoglycemia: - Continue Metformin XR 2000 mg - Continue Insulin aspart sliding scale with meals - Family med following; recs appreciated Hyponatremia: - Fluid restriction discontinued 05/13 - Discuss role of Oxcarbazepine (Trileptal) in decreasing sodium level with Dr. Matson Other: - Nicotine replacement - Albuterol inhaler - Flonase Milieu: - CRUZ 3, routine observation - Encourage group attendance Discharge Plan: Initial tentative discharge date established with Hilda earlier in week not feasible at this time. Will extend into next week and re-assess. Lynn Rutherford MD 05/13/2013 8:09 Psychiatry Attending Attestation: I have personally seen and examined the patient [id number]. Treatment plan reviewed with the team. I spent a total of 75 minutes with this patient in direct floor time and 50 minutes of that time was spent in counseling and coordination of care regarding Status of symptoms, family meeting, addressing questions, diagnostic explanation, exploring treatment options, aftercare planning. I agree with and have edited in italics the findings and plan of care as documented in the resident's note. ROSARIO JUSTIN MD Pager [phone] Attending, Inpatient Psychiatry, [facility] * Rosario Justin MD - 05/12/2013 1723 EST Inpatient Psychiatry Daily Progress Note 05/12/2013 Admit Date: 05/06/2013 Hospital day: LOS: 6 days Legal Status: Legal status: Voluntary Observation Level: Observation / visual check: Routine (Q hour day / travis, Q 1/2 hour night) Locus/Risk of Harm: Current locus of harm: 3 Reason for Admission/Chief Complaint: Suicide attempt Clinical Update/24-hour Events: No group attendance today stating that her back/hip pain prevented her from going. Expresses that nothing is being done for her here. Expresses anger and frustration at various providers. Continues to express disinterest in going to [facility] despite this being a strong clinical recommendation. Again brings up lurasidone as well as ECT as desired treatment options. Requests that tramadol be returnedto home dose and did verify dosing with her pharmacy. States that she is not drug seeking though does have h/o breaking pain med contract with previous provider. Refers to what other pts on unit are receiving to convey sense of her own mistreatment. Tolerating passes off the unit. On return from pass today, went straight to lunch and did not seek out FS despite her knowing she needed to do this. Past Family/Social History Update: - Family meeting scheduled for tomorrow, 05/13 at 11:00 AM. - Lives with boyfriend. Pt has half-time custody of 5 yo son and 14 yo daughter. - Reports having been in multiple antidepressants in past including: bupropion, citalopram, trazodone, fluoxetine, paroxetine, sertraline. 05/11/13: Spoke with mother on phone after she had called earlier to express concern about pt. Pt had apparently called mother after meeting with team today and expressed discontent with lack of medication changes/additions and not being offered ECT as a treatment option. Current Facility-Administered Medications Medication Route Frequency ??? acetaminophen (TYLENOL) tablet 1,000 mg oral Q4H PRN ??? albuterol (VENTOLIN HFA) inhaler 2 Puff inhalation Q4H PRN ??? cyclobenzaprine (FLEXERIL) tablet 10 mg oral TID ??? dexmethylphenidate (FOCALIN XR) multiphase capsule capsule,ER multiphase 50- 50 15 mg oral BEFORE BREAKFAST & LUNCH ??? dextrose 50 % solution 12.5 g intravenous PRN ??? DULoxetine (CYMBALTA) capsule 60 mg oral BID ??? fluticasone (FLONASE) nasal spray 1 [place] nasal - both Daily PRN ??? glucagon (human recombinant) injection 1 mg intramuscular PRN ??? hydrOXYzine (ATARAX) tablet 25 mg oral TID PRN ??? ibuprofen (MOTRIN) tablet 600 mg oral Q6H PRN ??? insulin aspart (NOVOLOG FLEXPEN) injection subcutaneous TID WC ??? lidocaine (LIDODERM) patch Removal topical DAILY ??? lidocaine 5 % (LIDODERM) patch 1 Patch transdermal Q24H ??? metFORMIN (GLUCOPHAGE-XR) ER tablet 2,000 mg oral DAILY WITH DINNER ??? nicotine (NICOTROL) 10 mg inhaler 1 Inhaler inhalation Q2H PRN ??? nicotine inhaler (delivery device) inhalation PRN ??? OXcarbazepine (TRILEPTAL) tablet 300 mg oral BID ??? QUEtiapine (SEROQUEL) tablet 200 mg oral USER SPECIFIED ??? simvastatin (ZOCOR) tablet 20 mg oral QPM ??? [START ON 05/13/2013] traMADol (ULTRAM) tablet 100 mg oral USER SPECIFIED Review of Systems: Hip and back pain (chronic). Poor sleep. Appetite intact. Mental Status Exam: woman with short blonde hair. Adequately groomed, dressed casually. Somewhat dismissive, but does engage to some extent. Intermittent eye contact. No psychomotor abnormalities. Speech spontaneous, r/r/v WNL. Mood is irritable, sad. Affect with some range. No current SI. No paranoid or delusional thoughts evident. TP linear with tight associations. TC with focus on medications, notable for negativity, helplessness. No AH/VH. Insight limited. Judgment fair-limited. Physical Exam: BP 141/78 Pulse 117 Temp(Src) 36.2 ??C (97.2 ??F) (Tympanic) Resp 16 Ht 159 cm (62.6) Wt84.732 kg (186 lb 12.8 oz) BMI 33.52 kg/m2 SpO2 96% LMP 04/29/2013 Data Review: Labs: Results for orders placed during the hospital encounter of 05/06/13 (from the past 24 hour(s)) ELECTROLYTES Collection Time 05/11/13 17:36 Result Value Range Sodium 132 (*) 136 - 145 mEq/L Potassium 3.7 3.5 - 5.0 mEq/L Chloride 93 (*) 96 - 110 mEq/L CO2 24 24 - 32 mEq/L GLUCOSE, GLUCOMETER Collection Time 05/11/13 22:53 Result Value Range Glucose, Fingerstick 174 (*) 70 - 100 mg/dl Circular Clerk ID [id number] GLUCOSE, GLUCOMETER Collection Time 05/12/13 7:54 Result Value Range Glucose, Fingerstick 137 (*) 70 - 100 mg/dl Circular Clerk ID [id number] GLUCOSE, GLUCOMETER Collection Time 05/12/13 17:15 Result Value Range Glucose, Fingerstick 149 (*) 70 - 100 mg/dl Circular Clerk ID [id number] Other studies:N/A Assessment/Formulation: 37-year-old woman presenting with chaotic life situation, recently overdosed on significant amount of Lantus, by report, treated for a number of days on the medical unit, now stabilized medically. Reports a history of bipolar disorder given to her at [facility] as well as ADHD. Review of discharge summary from [facility] does not mention bipolar disorder nor ADHD. Mood diagnosis was Depressive Disorder NOS and stimulant medication was added as an adjunct to depression treatment, apparently. She remains, at best, ambivalent about having survived the overdose attempt. Discussed goals for the admission which she described as wanting to stay safe, get on the right medications, become more positive, learn to handle stressful situations, control her mood swings, and manage anxiety - all goals that would be best addressed at [facility], particularly in the context of her Borderline diagnosis. We continue to encourage groups, however, pt's attendance has been minimal and her engagement with providers is limited and dismissive at times. She has desire for a cure or quick fix treatment andis unwilling to be proactive in creating change for herself - repeatedly requests medication changes, the addition of lurasidone, ECT. No reports of SI (yesterday reported no SI since being in ICU). Expresses readiness for discharge by end of week - possibly Th. A number of relatively brief interactions with various members of her treatment team today. Had 3-hour pass off unit. Med mgmt has been unhelpful to her in past by her report and current med regimen is unconventional. She requests a number of treatments that others on the unit are currently having,including Lurasidone and ECT. We have discussed on two prior occasions the appropriateness of [facility] OP treatment. she had been referred previously. She declines pursuing this now, likely because of the impasse that has developed with the team. Bipolar and ADHD do not appear to be documented in the record and we are not necessarily seeing current evidence for these diagnoses either. She has a risk of acting out impulsively and apparently is threatening to do this again if her needs are not met during current hospitalization. She has not been able to elaborate what she feels would be helpful, other than ECT. Apparently, her mother believes she was considered to have a Borderline Personality disorder, though we are unable to corroborate this. However, she is currently meeting criteria for this diagnosis and demonstrating behavior consistent with BPD. Family meeting tomorrow with julian allow opportunity to review her presentation, consider diagnoses and explore treatment and aftercare options.Interestingly, she vows to challenge late week discharge, a date she chose herself. Diagnosis: Waverly I: Mood disorder NOS, r/o Bipolar disorder Waverly II: Borderline traits Waverly III: Diabetes mellitus, type 2; Chronic hip and back pain; PCOS Plan: Mood d/o NOS: - Focalin XR 15 mg BID (no formal diagnosis of ADHD; states that it helps her mood, concentration, and allows her to work) - Cymbalta 60 mg BID - Trileptal 300 mg BID (pt indicates this is for pain, but may be for mood d/o NOS) Anxiety - Atarax 25 mg TID PRN anxiety Sleep: - Seroquel 200 mg qHS (unclear if this is also for mood stabilization) Hip/Back Pain: - Tramadol 100 mg TID (resumed home med) - Flexeril 10 mg TID (changed from PRN to scheduled to reflect home regimen on 05/08) - Lidocaine patch and heat wrap for chronic pain - Tramadol 50 mg q8 PRN (reduced from home dose of 100 mg TIID to decrease risk of serotonin syndrome) - Ibuprofen, acetaminophen PRN - Avoid opiates due to broken past opiate contract - Consider orthopedic and/or pain referral week of 05/11 DM2, s/p hypoglycemia: - Increased Metformin XR from 1000 mg to 2000 mg on 05/11/13 - Insulin aspart sliding scale with meals - Follow-up with [facility] med to determine - Family med following; recs appreciated Hyponatremia: - Fluid restricted Other: - Nicotine replacement - Albuterol inhaler - Flonase Milieu: - CRUZ 3, routine observation - Encourage group attendance - 2 hour pass off unit with Wilman mahoney 05/11 - 3 hour pass off unit tomorrow with Marcin Discharge Plan: [facility] highly appropriate for this pt. Intake had been scheduled prior to pt's hospitalization at [facility], but did not make it to intake. Potential discharge on 05/14. Lynn Rutherford MD 05/12/2013 17:23 Psychiatry Attending Attestation: I have personally seen and examined the patient today. Treatment plan and strategies reviewed with the team. I agree with and have edited in italics the findings and plan of care as documented in theresident's note. ROSARIO JUSTIN MD Pager [phone] Attending, Inpatient Psychiatry, [facility] * Stephanie Velázquez - 05/12/2013 1634 EST Social Work Progress Note Intervention/Service: Discharge planning and On-going assessment Met with pt in her room. She was lying on her bed in the dark and was on her right side facing awayfrom me. She reported she is angry as they are not changing her meds or giving her ECT. She said she doesn't see any point in being in the hospital. Asked her about [facility] but she was adamant she did not want [facility] but felt this was being pushed on her by the doctors. She agreed to a family meeting tomorrow. * Nae Garza - 05/11/2013 1529 EST MEDICAL STUDENT Inpatient Psychiatry Daily Progress Note 05/11/2013 Admit Date: 05/06/2013 Hospital day: LOS: 5 days Legal Status: Legal status: Voluntary Observation Level: Observation / visual check: Routine (Q hour day / travis, Q 1/2 hour night) Locus/Risk of Harm: Current locus of harm: 3 Reason for Admission/Chief Complaint: Suicide attempt (insulin OD resulting in DKA) Clinical Update/24-hour Events: Somatic complaints continue (back, hip pain). Patient remains fixated on ECT as treatment option, appears unwilling to consider CBT based programs (i.e. [facility]). Also hyperfocused on medications which aren't doing anything for me anyway. D/c planning was brought upgently and the patient self-volunteered /Sat of this week as a discharge date that felt comfortable. However, during conversation about benefit of CBT as opposed to ECT for her cognitive distortions, because visibly annoyed before announcing I'm done with this and abruptly left interview. During interview patient earlier endorsed feeling like I'm always up or down. Feels like anythingcan set her off; cannot recall when last felt relatively euthymic for any significant period of time. Denies having self any SI since admission to [facility]. (Ex?)boyfriend continues to be a significantstressor, as does a place to live on d/c. 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 As per family medicine recommendations, metformin was increased from 1000 to 2000 mg; they have signed off on this patient as blood glucose levels have been stable. Weekend psychiatry service also increased seroquel 150 mg q HS to 200 mg although the patient still c/o poor sleep. She explains that she typically takes her seroquel earlier in the evening (~1900); she feels that because she takes her dose later in the evening here, it takes longer to work. Able to get to sleep okay, but wakes up multiple times a night. Past Family/Social History Update: Hilda's mother called today and apparently has expressed concernabout Hilda's staying with her parents after d/c. Asking for Drs. Rutherford/Ellis to return call. Current Facility-Administered Medications Medication Route Frequency ??? acetaminophen (TYLENOL) tablet 1,000 mg oral Q4H PRN ??? albuterol (VENTOLIN HFA) inhaler 2 Puff inhalation Q4H PRN ??? cyclobenzaprine (FLEXERIL) tablet 10 mg oral TID ??? dexmethylphenidate (FOCALIN XR) multiphase capsule capsule,ER multiphase 50- 50 15 mg oral BEFORE BREAKFAST & LUNCH ??? dextrose 50 % solution 12.5 g intravenous PRN ??? DULoxetine (CYMBALTA) capsule 60 mg oral BID ??? fluticasone (FLONASE) nasal spray 1 [place] nasal - both Daily PRN ??? glucagon (human recombinant) injection 1 mg intramuscular PRN ??? hydrOXYzine (ATARAX) tablet 25 mg oral TID PRN ??? ibuprofen (MOTRIN) tablet 600 mg oral Q6H PRN ??? insulin aspart (NOVOLOG FLEXPEN) injection subcutaneous TID WC ??? lidocaine (LIDODERM) patch Removal topical DAILY ??? lidocaine 5 % (LIDODERM) patch 1 Patch transdermal Q24H ??? metFORMIN (GLUCOPHAGE-XR) ER tablet 2,000 mg oral DAILY WITH DINNER ??? nicotine (NICOTROL) 10 mg inhaler 1 Inhaler inhalation Q2H PRN ??? nicotine inhaler (delivery device) inhalation PRN ??? OXcarbazepine (TRILEPTAL) tablet 300 mg oral BID ??? QUEtiapine (SEROQUEL) tablet 200 mg oral QHS ??? simvastatin (ZOCOR) tablet 20 mg oral QPM ??? traMADol (ULTRAM) tablet 50 mg oral Q8H PRN Review of Systems: Positive for hip & back pain (though this is at patient's baseline). Positive for poor sleep. Positive for headache. Mental Status Exam: Causally dressed, neatly groomed woman appearing stated age. Cooperative and mostly polite, but at times guarded and dismissive. Adequate eye contact. No psychomotor agitation or retardation. Speech within normal limites. Mood described as not good with congruent affect. Affect was dysphoric, dysregulated and restricted, although some degree of range was still evident (smiling, laughing, engaging with interviewer). Thought process logical, linear although perseverative (onmedication changes and ECT). TC notable for significant cognitive distortions, but lacking SI/HI, and not responding to internal stimuli. Attends well with intact concentration. Poor insight and poor judgement. Physical Exam: BP 128/78 Pulse 96 Temp(Src) 35.7 ??C (96.3 ??F) (Tympanic) Resp 14 Ht 159 cm (62.6) Wt 84.732 kg (186 lb 12.8 oz) BMI 33.52 kg/m2 SpO2 96% LMP 04/29/2013 Data Review: Labs: Results for orders placed during the hospital encounter of 05/06/13 (from the past 24 hour(s)) GLUCOSE, GLUCOMETER Collection Time 05/10/13 17:12 Result Value Range Glucose, Fingerstick 138 (*) 70 - 100 mg/dl Circular Clerk ID [id number] GLUCOSE, GLUCOMETER Collection Time 05/10/13 20:58 Result Value Range Glucose, Fingerstick 184 (*) 70 - 100 mg/dl Circular Clerk ID [id number] GLUCOSE, GLUCOMETER Collection Time 05/11/13 7:47 Result Value Range Glucose, Fingerstick 136 (*) 70 - 100 mg/dl Circular Clerk ID [id number] GLUCOSE, GLUCOMETER Collection Time 05/11/13 11:55 Result Value Range Glucose, Fingerstick 134 (*) 70 - 100 mg/dl Circular Clerk ID [id number] Other studies: N/A Assessment/Formulation: 37 yo woman with recent h/o suicide attempt by insulin overdose resulting in DKA requiring medical stabilization. At this point, past psychiatric history and diagnoses remain unclear. Patient endorses h/o BPAD and ADHD diagnosed at last psychiatric admission at [facility], although d/c summary does not include these diagnoses. At the time, a dx of mood disorder NOS was made. At this point, given emotional lability, unstable interpersonal relationships and SI (including recent attempt), features of borderline personality disorder may be emerging. At any rate, her medication regimen needs to be thoroughly reviewed. For now would suggest gradually tapering off the focalin (initially prescribed by [facility] 11/2012 for anergia, poor concentration) as there is no indication of ADHD. It may also be that some elements of factitious disorder vs. malingering are complicating the picture. 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 However, patient did disclose applying for short-term disability which may represent secondary gain beyond that of the sick role (i.e. malingering). However this seems less likely as the patient has discussed her work as a source of pride for her. Diagnosis: Waverly I: Mood disorder NOS Waverly II: R/o borderline personality disorder Waverly III: Plan: Continue mg duloxetine 60 mg BID Recommend d/c focalin with gradual taper so as to not precipitate w/d Continue oxcarbazepine 300 mg BID for now, although indication should be assessed Continue to encourage group participation Continue with d/c planning Dispo: Likely Thurs or Fri, hopefully to juan carlos Garza (MS3) 15:30 05/11/2013 pager [phone] * Greyson Hampton MD - 05/11/2013 1209 EST Family Medicine Progress Note: Reason for consult: -- Suicidal Intent s/p insulin administration, suicidal intent with hypoglycemia. Now with mild hyperglycemia, known DM. HPI: pt states she is feeling fine, some insomnia. Does report back pain, somewhat helped with muscle relaxant. Recently increased her seroquel. No diarrhea or GI complaints on the metformin. ROS: no fever, no chills, no abdominal pain BP 128/78 Pulse 96 Temp(Src) 35.7 ??C (96.3 ??F) (Tympanic) Resp 14 Ht 159 cm (62.6) Wt 84.732 kg (186 lb 12.8 oz) BMI 33.52 kg/m2 SpO2 96% LMP 04/29/2013 Gen: WDWN, No apparent distress, AAOx3 Heent: MMM, EOMI Pulm: no respiratory distress Ext: no pitting edema bilaterally Skin: no rashes, no bruising Labs: Results for HILDA JEAN ( ) as of 05/11/2013 12:07 Ref. Range 05/10/2013 12:17 05/10/2013 17:12 05/10/2013 20:58 05/11/2013 07:47 05/11/2013 11:55 Glucose, Fingerstick Latest Range: 70-100 mg/dl 160 (H) 138 (H) 184 (H) 136 (H) 134 (H) A/P: Hilda Jean is a 37y/o female with hx of DM2 s/p SI with 1500 units of insulin. She required D10 IVF to maintain her glucoses and was able to be weaned off from this 3 days ago prior to transport to in psychiatry. Her glucoses have been stable and she is requiring minimal SSI aspart. No on oral metformin. DM2: s/p hypoglycemia, now off D10 with increasing glucoses. Patient started on metformin and titrated up to XR to 2000 daily last evening. Tolerating it well. - Continue oral metformin 2000 mg xr daily. - continue bs, ssi. - could consider starting sitagliptan if persistently hyperglycemic but would defer to outpatient pcp for this decision. - Patient's blood sugars stable for the time being. - We will sign off at this point. Please call with any questions. Patient discussed with Attending Dr. Hampton, Salvador Francois MD, MPH PGY - 3 Family Medicine, [id number] Salvador Francois MD, MPH PGY - 3 Family Medicine, [id number] attending Attestation statement: I discussed the patient with the resident/fellow at the time of the visit. Iagree with the findings and the plan of care documented in the resident's/fellow's note. Greyson Hampton MD * Rosario Justin MD - 05/11/2013 0937 EST Inpatient Psychiatry Daily Progress Note 05/11/2013 Admit Date: 05/06/2013 Hospital day: LOS: 5 days Legal Status: Legal status: Voluntary Observation Level: Observation / visual check: Routine (Q hour day / travis, Q 1/2 hour night) Locus/Risk of Harm: Current locus of harm: 3 Reason for Admission/Chief Complaint: Suicide attempt Clinical Update/24-hour Events: Slept 5 hours overnight. Attended grief group over the weekend. Quetiapine increased from 150 mg to200 mg qHS last night to address poor sleep. Inquires today whether quetiapine could be given earlier in evening to promote earlier sleep onset and diminish morning sedation. Noted to engage superficially with staff. C/o chronic hip/back pain 7/10 in severity for which she plans to see orthopedic surgery on outpatient basis. Denies SI and notes she has not experienced SI since being in ICU. Pt again inquires about ECT. Instead strongly encouraged to pursue [place] to meet her previously stated goals of 1) staying safe, 2) getting on the right medications, 3) becoming more positive, 4) learning to handle stressful situations, 5) controlling her mood swings, and 6) managing anxiety. . Continues to request medication changes while also stating that the multiple antidepressants she has been on in the past havebeen ineffective. Left interview abruptly today. Pt states that she would be ready for discharge later this week. In moving toward discharge, requested 2 hr pass tonight and 3 hour pass tomorrow. Talks about likely dissolution of relationship with boyfriend with whom she lives. Expresses sadness that boyfriend hasn't visited her in hospital. Considering moving in with parents versus returning to apartment. Past Family/Social History Update: Lives with boyfriend. Pt has half-time custody of 5 yo son and 14 yo daughter. Reports having been in multiple antidepressants in past including: bupropion, citalopram, trazodone, fluoxetine, paroxetine, sertraline. 05/11/13: Spoke with mother on phone after she had called earlier to express concern about pt. Pt had apparently called mother after meeting with team today and expressed discontent with lack of medication changes/additions and not being offered ECT as a treatment option. Current Facility-Administered Medications Medication Route Frequency ??? acetaminophen (TYLENOL) tablet 1,000 mg oral Q4H PRN ??? albuterol (VENTOLIN HFA) inhaler 2 Puff inhalation Q4H PRN ??? cyclobenzaprine (FLEXERIL) tablet 10 mg oral TID ??? dexmethylphenidate (FOCALIN XR) multiphase capsule capsule,ER multiphase 50- 50 15 mg oral BEFORE BREAKFAST & LUNCH ??? dextrose 50 % solution 12.5 g intravenous PRN ??? DULoxetine (CYMBALTA) capsule 60 mg oral BID ??? fluticasone (FLONASE) nasal spray 1 [place] nasal - both Daily PRN ??? glucagon (human recombinant) injection 1 mg intramuscular PRN ??? hydrOXYzine (ATARAX) tablet 25 mg oral TID PRN ??? ibuprofen (MOTRIN) tablet 600 mg oral Q6H PRN ??? insulin aspart (NOVOLOG FLEXPEN) injection subcutaneous TID WC ??? lidocaine (LIDODERM) patch Removal topical DAILY ??? lidocaine 5 % (LIDODERM) patch 1 Patch transdermal Q24H ??? metFORMIN (GLUCOPHAGE-XR) ER tablet 1,000 mg oral DAILY WITH DINNER ??? nicotine (NICOTROL) 10 mg inhaler 1 Inhaler inhalation Q2H PRN ??? nicotine inhaler (delivery device) inhalation PRN ??? OXcarbazepine (TRILEPTAL) tablet 300 mg oral BID ??? QUEtiapine (SEROQUEL) tablet 200 mg oral QHS ??? simvastatin (ZOCOR) tablet 20 mg oral QPM ??? traMADol (ULTRAM) tablet 50 mg oral Q8H PRN Review of Systems: Hip and back pain (chronic). Poor sleep. Appetite intact. Mental Status Exam: woman with short blonde hair. Adequately groomed, dressed casually. Initially cooperative, but seemingly not fully engaged. Abruptly left interview later in interview. Intermittent eye contact. No psychomotor abnormalities. Speech spontaneous, r/r/v WNL. Mood is described as not that good; rather labile. Smiles at times during the interview. Affect with some range. Denies current SI. No paranoid or delusional thoughts evident. TP linear with tight associations. TC with focus on medications, notable for negativity, helplessness. No AH/VH. Insight limited. Judgment fair-limited. Physical Exam: BP 128/78 Pulse 96 Temp(Src) 35.7 ??C (96.3 ??F) (Tympanic) Resp 14 Ht 159 cm (62.6) Wt 84.732 kg (186 lb 12.8 oz) BMI 33.52 kg/m2 SpO2 96% LMP 04/29/2013 Data Review: Labs: Results for orders placed during the hospital encounter of 05/06/13 (from the past 24 hour(s)) GLUCOSE, GLUCOMETER Collection Time 05/10/13 12:17 Result Value Range Glucose, Fingerstick 160 (*) 70 - 100 mg/dl Circular Clerk ID [id number] GLUCOSE, GLUCOMETER Collection Time 05/10/13 17:12 Result Value Range Glucose, Fingerstick 138 (*) 70 - 100 mg/dl Circular Clerk ID [id number] GLUCOSE, GLUCOMETER Collection Time 05/10/13 20:58 Result Value Range Glucose, Fingerstick 184 (*) 70 - 100 mg/dl Circular Clerk ID [id number] GLUCOSE, GLUCOMETER Collection Time 05/11/13 7:47 Result Value Range Glucose, Fingerstick 136 (*) 70 - 100 mg/dl Circular Clerk ID [id number] Other studies:N/A Assessment/Formulation: 37-year-old woman presenting with chaotic life situation, recently overdosed on significant amount of Lantus, by report, treated for a number of days on the medical unit, now stabilized medically. Reports a history of bipolar disorder given to her at [facility] as well as ADHD. Review of discharge summary from [facility] does not mention bipolar disorder nor ADHD. Mood diagnosis was Depressive Disorder NOS and stimulant medication was added as an adjunct to depression treatment, apparently. She remains, at best, ambivalent about having survived the overdose attempt. Discussed goals for the admission which she described as wanting to stay safe, get on the right medications, become more positive, learn to handle stressful situations, control her mood swings, and manage anxiety. Encouraged her to pursue group treatment while an inpatient. Also mentioned we would review her medication regimen, but would primarily focus on simplifying the regimen, which pt expresses concern about. She has violated contract with former PCP regarding opiate analgesics. Today she demonstrated no overt pain behavior. She denies other substance use. Reports no SI since being in ICU. Expresses readiness for discharge by end of week. She requests ECT which does not appear appropriate at this time. A course of intensive outpatient treatment is strongly indicated at this time. Diagnosis: [place] I: Mood disorder NOS, r/o Bipolar disorder [place] II: Borderline traits [place] III: Diabetes mellitus, type 2; Chronic hip and back pain; PCOS Plan: Mood d/o NOS: - Focalin XR 15 mg BID (no formal diagnosis of ADHD; states that it helps her mood, concentration, and allows her to work) - Cymbalta 60 mg BID - Trileptal 300 mg BID (pt indicates this is for pain, but may be for mood d/o NOS) Anxiety - Atarax 25 mg TID PRN anxiety Sleep: - Seroquel 200 mg qHS (unclear if this is also for mood stabilization) Hip/Back Pain: - Tramadol 100 mg TID (resumed home med) - Flexeril 10 mg TID (changed from PRN to scheduled to reflect home regimen on 05/08) - Lidocaine patch and heat wrap for chronic pain - Tramadol 50 mg q8 PRN (reduced from home dose of 100 mg TIID to decrease risk of serotonin syndrome) - Ibuprofen, acetaminophen PRN - Avoid opiates due to broken past opiate contract - Consider orthopedic and/or pain referral week of 05/11 DM2, s/p hypoglycemia: - Increased Metformin XR from 1000 mg to 2000 mg on 05/11/13 - Insulin aspart sliding scale with meals - Family med following; recs appreciated Hyponatremia: - Fluid restricted Other: - Nicotine replacement - Albuterol inhaler - Flonase Milieu: - CRUZ 3, routine observation - Encourage group attendance - 2 hour pass off unit with Wilman mahoney 05/11 - 3 hour pass off unit tomorrow with Marcin Discharge Plan: [place] highly appropriate for this pt. Intake had been scheduled prior to pt's hospitalization at [facility], but did not make it to intake. Potential discharge on 05/14. Lynn Rutherford MD 05/11/2013 9:37 Psychiatry Attending Attestation: I have personally seen and examined the patient [id number]. Treatment plan reviewed with the team. I spent a total of 40 minutes with this patient in direct floor time and 25 minutes of that time was spent in counseling and coordination of care regarding status of symptoms, medication management and reviewing other treatment options, limit setting, supportive counseling, aftercare planning.. I agree with and have edited in italics the findings and plan of care as documented in the resident's note. ROSARIO JUSTIN MD Pager [phone] Attending, Inpatient Psychiatry, [facility] * Chris Jacejudson - 05/10/2013 1820 EST SPIRITUAL CARE NOTE Patient: Hilda Jean 05/10/2013 Location: [id number] Date of : 1975 Hilda Jean who is listed as None has received a visit from the Spiritual Care Department on05/10/2013. VISIT INITIATED by X Rounding Visit X Initial Visit by S.[facility]. Department Referral from Patient / Family Follow-up visit Referral from Treatment Team Time: End of Life / Comfort Care / Hospice Urgent Request - Time: 3 Level of Visit UNAVAILABLE FOR VISIT Patient Discharged Patient sleeping Patient out of room Patient with Treatment Team ISSUES & INTERVENTIONS: X Listened to patient's story Concerned about life after Facilitated Mosque Needs / Rituals Conflicted or challenged belief system Prayer / [place] Isolated from buddhist community Anointing of the Sick Conflict between buddhist beliefs and treatment Communion X Facilitated exploration of Guilt Sabianist Facilitated exploration of Hopelessness Naming Ceremony Facilitated identification of Emotions Facilitated exploration of meaning/purpose Gonzalez and Prayers for the Dying X Facilitated exploration of Discouragement Present at time of (w/ in 2 hrs) Facilitated Grief / Bereavement Work Consoled Family X Encouraged focus on present moment Prayers for the Encouraged Self-care Contacted [place] Connected with Community Resources Family Support Provided Reading Materials Advocated for patient / family Relaxation through Music Celebrated with patient / family Led a Guided Meditation Consulted with interdisciplinary team Assisted with Advanced Directives Connected with Community Resources Facilitated exploration of Ethical Issues Clarified, confirmed, information Facilitated Decision Making Assisted with the Clarification of Goals SPIRITUAL ISSUE & ASSESSMENT: Pt said that what she finds helpful in coping is contacting friends and parents, and deep breathing/relaxation. No specific shyanne tradition, but believes in a HigherPower. She mentioned concern (guilt) about how a higher power views her suicide attempt - encouraged her that there is forgiveness/understanding and that it is what we do now that is most important. She said they say that He only gives you as much as you can handle, but it doesn't feel true. PLAN: No Follow up necessary - Needs met Continued Family Support X Continued Support from Hand Endband Cutter following patient Make a Referral to Continued Support with Volunteer Visits Connect with Community Supports REASON for Follow up: THEODORE AMOS, Hand Endband Cutter Spiritual Care Department Luis 856, [phone] Spiritual Care is available 24 hours a day. Office hours are 0800 to 1700 Saturday through Saturday and 0830 to 1630 Saturday and Saturday. Interfaith and Church chaplains are available 24 hours a day. For routine consults please call and leave a message with the Spiritual Care Office ([phone]) and patients will be seen within 24 hours. [place] emergent consults page the Scientologist or Interfaith on-call Hand Endband Cutter through [facility] ([phone]). * Hailee Douglass - 05/10/2013 1638 EST Cognitive Group: S/O: Pt participated in the discussion of cognitive distortions and completed a thought record, identifying a difficult situation- her daughter seeing her in the hospital. She identified several automatic thoughts, one of which was being a bad mother. Pt able to identify a distortion in this thought and also able to come up with rational responses- that she has been a very good mother in the past, that when she is out of the hospital she will spend more time with her, and that taking her medication is important. A: inc in participation, engaged, increasing cognitive skills, benefited from the group. P: To continue to participate in group and increase coping skills. * Greyson Hampton MD - 05/10/2013 1236 EST Family Medicine Consult Note: Reason for consult: -- s/p insulin administration, suicidal intent with hypoglycemia. Now with mildhyperglycemia, known DM. HPI: pt states she is feeling fine, mild headache, some insomnia. Recently increased her seroquel. No diarrhea. No complaints with the metformin. Would like to be back to her 2000mg daily. ROS: no fever, no chills, no abdominal pain BP 109/62 Pulse 80 Temp(Src) 35.2 ??C (95.4 ??F) (Tympanic) Resp 14 Ht 159 cm (62.6) Wt 84.732 kg (186 lb 12.8 oz) BMI 33.52 kg/m2 SpO2 97% LMP 04/29/2013 Gen: WDWN, No apparent distress, AAOx3 Heent: Pupils equal round reactive to light, extra ocular muscles intact, MMM Pulm: no respiratory distress Abd: soft, nontender Ext: no pitting edema bilaterally Skin: no rashes, no bruising Labs: Results for HLIDA JEAN ( ) as of 05/10/2013 12:37 Ref. Range 05/09/2013 11:49 05/09/2013 16:56 05/09/2013 19:29 05/10/2013 06:51 05/10/2013 12:17 Glucose, Fingerstick Latest Range: 70-100 mg/dl 204 (H) 119 (H) 181 (H) 135 (H) 160 (H) A/P: Hilda Jean is a 37y/o female with hx of DM2 s/p SI with 1500 units of insulin. She required D10 IVF to maintain her glucoses and was able to be weaned off from this 3 days ago prior to transport to [facility]. Her glucoses have been stable and she is requiring minimal SSI aspart DM2: s/p hypoglycemia, now off D10 with increasing glucoses. Recommend increasing metformin XR to 2000 daily Will also consider starting an additional PO med such as actos after she is at the max dose of Metformin (as a sulfonurea will currently increase her risk of hypoglycemia) Kayley Correa DO Pager [phone] 05/10/2013 12:36 FM attending Attestation statement: I discussed the patient with the resident/fellow at the time of the visit. Iagree with the findings and the plan of care documented in the resident's/fellow's note. Greyson Hampton MD * Haim Morales MD - 05/10/2013 0934 EST Physician Weekend Cross Coverage Note Date: 05/10/13 Time: 09:34 Reason for Hospitalization: Suicide attempt. LOS 4 days. History: 37 yo woman transferred from medical service after suicide attempt via insulin. Tramadol reduced recently due to risk of serotonin syndrome but no complaints of pain. She complaints today ofpoor sleep. Daughter visited yesterday and went well. Blood pressure 109/62, pulse 80, temperature 35.2 ??C (95.4 ??F), temperature source Tympanic, resp. rate 14, height 159 cm (62.6), weight 84.732 kg (186 lb 12.8 oz), last menstrual period 04/29/2013, SpO2 97.00%. Exam: Obsese woman. Wearing glasses. Pleasant. Dressed. Speech regular. Mood euthymic. Affect consistent. No SI. Thoughts logical and coherent. Diagnosis/Assessment: Depression NOS although some records incdicate past Bipolar Disorder and ADHD. Stable today although reporting worse sleep and anxiety at night. . Descision Making: Continue oxcarbazepine, Seroquel, Focalin, and Flexeril. Will increase Seroquel tonight.. Signature: Haim Morales M.D. Pager [phone] * Hailee Douglass - 05/09/2013 1611 EST Karaoke S/O: After showering pt joined the group and chose songs and sang along with the music. Pt smiling and laughing as she socialized with others. A: engaged, inc in relaxation, improved mood, social, brighter affect. P: to continue to participate in groups to increase coping skills. * Daiana Michaels MA - 05/09/2013 1605 EST Grief and Anger Group: S/O: Pt offered support to a peer as he shared about his losses. She then shared about feeling hurtby her boyfriend not going to see her in the ICU, which he reportedly told her he did to punish her. Pt was offered support and understanding, helped to identify the losses involved, and encouragedto continue talking about/processing the emotions emerging in her grief. Pt stated at the end of group that she was feeling better about being here on the unit now that she has gone to a couple groups and interacted positively with her peers in the milieu. A: Identifying losses and processing her grief. Increased participation. Supportive of peers. Attentive and engaged. P: To continue to participate in group and increase coping skills. * Jerrod Lovett MD - 05/09/2013 1325 EST Family Medicine Consult Note: Reason for consult: -- s/p insulin administration, suicidal intent with hypoglycemia. Now with mildhyperglycemia, known DM. HPI: pt states she is feeling fine, mild headache, some insomnia. ROS: no fever, no chills, no abdominal pain BP 137/77 Pulse 78 Temp(Src) 35.7 ??C (96.3 ??F) (Tympanic) Resp 18 Ht 159 cm (62.6) Wt 84.732 kg (186 lb 12.8 oz) BMI 33.52 kg/m2 SpO2 98% LMP 04/29/2013 Gen: WDWN, No apparent distress, AAOx3 Heent: Pupils equal round reactive to light, extra ocular muscles intact, MMM Pulm: no respiratory distress Abd: soft, nontender Ext: no pitting edema bilaterally, pulses 2/4 bilaterally UE/LE Skin: no rashes, no bruising Labs: Results for HILDA JEAN ( ) as of 05/09/2013 13:17 Ref. Range 05/08/2013 17:00 05/08/2013 20:55 05/09/2013 07:47 05/09/2013 11:49 Glucose, Fingerstick Latest Range: 70-100 mg/dl 121 (H) 114 (H) 124 (H) 204 (H) A/P: Hilda Jean is a 37y/o female with hx of DM2 s/p SI with 1500 units of insulin. She required D10 IVF to maintain her glucoses and was able to be weaned off from this 3 days ago prior to transport to [facility] psychiat[facility]. Her glucoses have been stable and are now starting to trend upwards. DM2: s/p hypoglycemia, now off D10 with increasing glucoses. Recommend starting Metformin XR 1000 daily -> to start today. If her glucoses continue to increase, will plan to increase metformin to 1500 daily Will also consider starting an additional PO med such as actos after she is at the max dose of Metformin (as a sulfonurea will currently increase her risk of hypoglycemia) Jerrod Lovett MD Family Medicine PGY 2 [phone] * Rosario Justin MD - 05/08/2013 1748 EST Inpatient Psychiatry Daily Progress Note 05/08/2013 Admit Date: 05/06/2013 Hospital day: LOS: 2 days Legal Status: Legal status: Voluntary Observation Level: Observation / visual check: Q 15 minutes (frequent) Locus/Risk of Harm: Current locus of harm: 4 Reason for Admission/Chief Complaint: Suicide attempt Clinical Update/24-hour Events: Slept 7 hours overnight, but c/o poor sleep. Feels that mood is worse since admission. C/o medication mismanagement, not being heard or helped. Very medication focused and states she is looking for a cure. Inquires about ECT, switching from quetiapine to lurasidone despite unclear reason why on an tipsychotic. States that Focalin has been helpful for her mood, concentration, motivation in going to work. No prior ADHD diagnosis. Generally doesn't take med over weekend. Talks about how she has burned through her friends. Reports having been in multiple antidepressants in past including: bupropion, citalopram, trazodone, fluoxetine, paroxetine, sertraline Past Family/Social History Update: Lives with boyfriend. Pt has half-time custody of 5 yo son and 14 yo daughter. Current Facility-Administered Medications Medication Route Frequency ??? acetaminophen (TYLENOL) tablet 1,000 mg oral Q4H PRN ??? albuterol (VENTOLIN HFA) inhaler 2 Puff inhalation Q4H PRN ??? cyclobenzaprine (FLEXERIL) tablet 10 mg oral TID PRN ??? dexmethylphenidate (FOCALIN XR) multiphase capsule capsule,ER multiphase 50- 50 15 mg oral BEFORE BREAKFAST & LUNCH ??? dextrose 50 % solution 12.5 g intravenous PRN ??? DULoxetine (CYMBALTA) capsule 60 mg oral BID ??? fluticasone (FLONASE) nasal spray 1 [place] nasal - both Daily PRN ??? glucagon (human recombinant) injection 1 mg intramuscular PRN ??? hydrOXYzine (ATARAX) tablet 25 mg oral TID PRN ??? ibuprofen (MOTRIN) tablet 600 mg oral Q6H PRN ??? insulin aspart (NOVOLOG FLEXPEN) injection subcutaneous TID WC ??? lidocaine (LIDODERM) patch Removal topical DAILY ??? lidocaine 5 % (LIDODERM) patch 1 Patch transdermal Q24H ??? [START ON 05/09/2013] metFORMIN (GLUCOPHAGE-XR) ER tablet 1,000 mg oral DAILY WITH DINNER ??? nicotine (NICOTROL) 10 mg inhaler 1 Inhaler inhalation Q2H PRN ??? nicotine inhaler (delivery device) inhalation PRN ??? OXcarbazepine (TRILEPTAL) tablet 300 mg oral BID ??? QUEtiapine (SEROQUEL) tablet 150 mg oral QHS ??? simvastatin (ZOCOR) tablet 20 mg oral QPM ??? traMADol (ULTRAM) tablet 100 mg oral BID Review of Systems: Hip and back pain (chronic). Poor sleep. Appetite intact. TIDWELL 10/06. Mental Status Exam: woman with short blonde hair. Adequately groomed, dressed casually. Cooperative. Tearful.Has some difficutly articulating thoughts. Intermittent eye contact. No psychomotor abnormalities. Speech spontaneus, r/r/v WNL. Mood is described as worse; later in interview described as okay. Affect with limited range. Denies current SI. No paranoid or delusional thoughts evident. TP linear with tight associations. TC with focus on medications, notable for negativity, helplessness, self-pity. No AH/VH. Insight limited. Judgment fair-limited. Physical Exam: BP 129/60 Pulse 107 Temp(Src) 35.7 ??C (96.3 ??F) (Tympanic) Resp 18 Ht 159 cm (62.6) Wt84.732 kg (186 lb 12.8 oz) BMI 33.52 kg/m2 SpO2 98% LMP 04/29/2013 Data Review: Labs: Results for orders placed during the hospital encounter of 05/06/13 (from the past 24 hour(s)) GLUCOSE, GLUCOMETER Collection Time 05/07/13 21:21 Result Value Range Glucose, Fingerstick 126 (*) 70 - 100 mg/dl Circular Clerk ID [id number] GLUCOSE, GLUCOMETER Collection Time 05/08/13 8:05 Result Value Range Glucose, Fingerstick 144 (*) 70 - 100 mg/dl Circular Clerk ID [id number] GLUCOSE, GLUCOMETER Collection Time 05/08/13 11:26 Result Value Range Glucose, Fingerstick 220 (*) 70 - 100 mg/dl Circular Clerk ID [id number] GLUCOSE, GLUCOMETER Collection Time 05/08/13 17:00 Result Value Range Glucose, Fingerstick 121 (*) 70 - 100 mg/dl Circular Clerk ID [id number] Other studies:N/A Assessment/Formulation: 37-year-old woman presenting with chaotic life situation, recently overdosed on significant amount of Lantus, by report, treated for a number of days on the medical unit, now stabilized medically. Reports a history of bipolar disorder given to her at [facility] as well as ADHD. Review of discharge summary from [facility] does not mention bipolar disorder nor ADHD. Mood diagnosis was Depressive Disorder NOS and stimulant medication was added as an adjunct to depression treatment, apparently. She remains, at best, ambivalent about having survived the overdose attempt. Discussed goals for the admission which she described as wanting to stay safe, get on the right medications, become more positive, learn to handle stressful situations, control her mood swings, and manage anxiety. Encouraged her to pursue group treatment while an inpatient. Also mentioned we would review her medication regimen, but would primarily focus on simplifying the regimen, if any changes made. She has violated contract with former PCP regarding opiate analgesics. Today she demonstrated no overt pain behavior. She denies other substance use. States she can be safe on the unit. Diagnosis: Waverly I: Mood disorder NOS, r/o Bipolar disorder Waverly II: R/o personality disorder Waverly III: Diabetes mellitus, type 2; Chronic hip and back pain; PCOS Plan: Mood d/o NOS: - Focalin XR 15 mg BID (no formal diagnosis of ADHD; states that it helps her mood, concentration, and allows her to work) - Cymbalta 60 mg BID - Trileptal 300 mg BID (pt indicates this is for pain, but may be for mood d/o NOS) Sleep: - Seroquel 150 mg qHS (unclear if this is also for mood stabilization) Hip/Back Pain: - Tramadol 100 mg TID (resumed home med) - Flexeril 10 mg TID (changed from PRN to scheduled to reflect home regimen on 05/08) - Consider orthopedic and/or pain referral week of 05/11 DM2: - Metformin XR 1000 mg re-started on 05/09/13 - Insulin aspart sliding scale with meals, consider restarting metformin or lantus if regimen ineffective -Atarax for anxiety 25 mg TID PRN, nicotine replacement, albuterol inhaler and Flonase, ibuprofen, tylenol PRN -lidocaine patch and heat wrap for chronic pain, avoid opiates due to broken past opiate contract -encourage therapeutic alliance Milieu: - CRUZ 3, routine observation - Encourage group attendance Discharge Plan: [place] highly appropriate for this pt. Intake had been scheduled prior to pt's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 betrayed. She states that it helps to talk about it in group and with her friends. She would like to have breaks and passesoff the unit. Response:Supportive listening was very helpful. Nurse encouraged patient to attend groups and to socialize and to engage in activities that she enjoyed. The Seroquel was raised to 200 mg. To promote better sleeping for patient.. Luciana Antonio RN 05/10/2013 14:40 * Plan of Care - Guillermina Rivera - 05/10/2013 0659 EST Problem: ALTERATION IN SLEEP Goal: Reports Nightly Sleep, Duration And Quality Outcome: Not Met This Shift Data: Has ntyot slept well tonight. Restless Action: monitor sleep pattern and quality Response: slept fitfully 6 ho0urs Guillermina Rivera RN 05/10/2013 6:53 * Plan of Care - Carmencita Amador RN - 05/09/2013 2225 EST Problem: POTENTIAL FOR HARM TO SELF OR OTHERS Goal: Identifies Stressors That Lead To Harmful Behaviors Outcome: Ongoing Data: Report received from Palak Lutz RN at 1915. Pt had family visit which went well . Family appeared supportive. Cooperative with rules for visit. Pt very engageable with nurse. Speaking of stressors prior to admission and apparent break up with boyfriend since hospitalization. Action: Supportive 1:1 interactions. Meds as scheduled. Routine checks . Response: Mood appears good . Cooperative And compliant with meds. States she feels much better in hospital than she had immediately prior to admission. Carmencita Amador RN 05/09/2013 22:15 * Plan of Care - Palak Lutz RN - 05/09/2013 6787 EST Problem: Ineffective Coping Goal: Identifies Healthy Coping Skills Outcome: Ongoing [id number] Data: Pt pleasant and appropriate with all interactions this shift. Pt reports that he day went well today and that her mood is good. Pt was thankful for the singe room and hopeful that despite the weather that her daughter will be able to visit. Much of shift spent in the milieu with peers at [facility] or in her room on the phone. Action: Pt assessed for pain and SI/SH. Offered supportive 1:1 interactions. Glucose monitored and meds given per order.Intake monitored. Encouraged to continue to attend groups. Pt on routine obs. Response: Pt reports slight generalized pain~declined intervention. Pt denies thoughts of SI/SH. Mood is good, affect is full. Pt engaged well with conversations. Pt with good appetite, compliant with fluid restrictions and with meds. Pt remains safe on the unit. PALAK LUTZ RN 05/09/2013 18:31 * Plan of Care - Maria Eugenia Cox RN - 05/09/2013 1120 EST Problem: POTENTIAL FOR HARM TO SELF OR OTHERS Goal: Denies Harm Toward Self Or Others Outcome: Ongoing Data: Patient c/o poor sleep. Patient denied suicidal or homicidal ideation. C/o pain 4/10 in low back and left hip-requested ibuprofen 600 mgs po at 0753. Room changed. Patient given permission to have 5 yo daughter visit today and understands the rules. Pleasant on interactions. Napped late am. AC breakfast BI=[id number] coverage given.AC lunch [id number] 3 units aspart. Patient requested tylenol 1000 mgs po and ultram 50 mgs po prn back and hip pain at 1223 which decreased pain to 3/10. Attended grief and anger group. Compliant with 1000 cc fluid restriction. Action: Patient on routine observations for patient safety. Assessed S.I./S.H./H.I. Assessed pain/vs. Encouraged groups. Supportive interactions.1-1. Response: Patient has remained safe on the unit. Maria Eugenia Cox RN 05/09/2013 * Plan of Care - Guillermina Rivera - 05/09/2013 0617 EST Problem: ALTERATION IN SLEEP Goal: Reports Nightly Sleep, Duration And Quality Outcome: Met This Shift Data: Has slept on and off c/o pain and medicated as ordered Action: Continue to monitor sleep pattern sand quality Response: Sleptm 7 hours tonight Guillermina Rivera RN 05/09/2013 6:16 * Plan of Care - Palak Lutz RN - 05/08/2013 9788 EST Problem: Ineffective Coping Goal: Participates In Unit Activities Outcome: Ongoing Data: Pt in spiritual care group at start of shift. Pt pleasant and cooperative with all interactions this shift. Pt later attended evening Recovery group which she reported went well. Pt requested to have to her daughter visit for a brief period of time tomorrow. Pt was encouraged to speak to MD in the morning regarding this. Pt reports that her day went well today and that its better then it was yesterday. Action: Pt assessed for pain and SI/SH, offered supportive 1:1 interactions. Intake monitored. Pt re-educated on fluid restriction (amount demonstrated via 4 coffee cups). Glucose monitored. Scheduled and PRN meds given per order. Pt changed to routine level III. Response: Pts mood was good and behaviors appropriate. Pt social in milieu and active with peers. Pt open to suggestions regarding fluid restriction. Pt reports pain~monitored with PRNs, denies active thoughts of SI/SH. Pt remains safe on the unit. PALAK LUTZ RN 05/08/2013 22:27 * Plan of Care - Nikita Bowen RN - 05/08/2013 1413 EST DATA: Pt spent most of the shift either isolating in her room or out in the milieu. Hygiene adequate. Appetite good for meals on the unit, Compliant with medications. Pt aware of 1,000cc fluid restriction. 8a FS 144 2u coverage. 12p FS 220 5u coverage. C/O back pain and headache(See MAR). Pt calledpt advocacy with a list of complaints related to her care. ACTION: Offered 1:1. Assessed mood/affect/thought/behavior. Encouraged group attendance and participation. Meds provided for relief from pain(See MAR) RESPONSE: When asked how she was feeling, pt completely shifted the conversation from herself to a litany of complaints about a multitude of ways in which perceives herself as getting bad care. Explained that I would take all her concerns to rounds and present them to her team. Pt's affect flat and irritable. Denies SI/HI. * Plan of Care - Guillermina Rivera - 05/08/2013 0633 EST Problem: ALTERATION IN SLEEP Goal: Reports Nightly Sleep, Duration And Quality Outcome: Met This Shift Data: C/o pain in hip. Given Prn medication as ordered. Remains on 1000 ml fluid restriction. Has slept well tonight Action: Frequent monitoring LOC 4. Monitor sleep and quality Response: Slept 7 hours tonight Guillermina Rivera RN 05/08/2013 6:28 * Plan of Care - Getachew Hameed - 05/07/2013 1854 EST Problem: Ineffective Coping Goal: Identifies Healthy Coping Skills Outcome: Met This Shift Patient Active Problem List Diagnosis ??? Routine history and physical examination of adult ??? Type II diabetes mellitus without mention of complication ??? Polycystic ovaries ??? Contraceptive management ??? Insertion of (intrauterine) contraceptive device ??? Left buttock pain ??? Left hip pain ??? Low back pain ??? Pain of left thigh ??? Hyperlipidemia ??? Brachial plexus lesions ??? Shoulder pain ??? Pain in joint, pelvic region and thigh ??? Suicidal ideation ??? Insulin overdose ??? Depression ??? Unspecified episodic mood disorder ??? Suicide attempt by drug ingestion Data: CRUZ IV, Frequent, Voluntary. Denies SI, HI, hallucinations. Endorses 4- 610 anterior headacheof three days duration. States 'I need you to get my tramadol, it is what I take every day. Visisting with friend beginning of shift. Showered and attended to ADLs. In milieu watching TV. Affect tense, dismissive, avoidant. Action: Monitor for safety. Assess mood, affect, pain. Medications per JUN. PRN ibuprofen 600 mg ih1653 pm and 2155 pm . PRN acetaminophen 100 mg at 1905 pm. PRN cyclobenzaprine 10 mg at 2156. Heat applied to hip for pain. Brief 1:1. Advised MD of request for Tramadol. Response: Repeated request for tramadol stating: Did you get my tramadol fixed?. Advised that shewould not be receiving this medication. Impatient and irritable with staff about pain medications, making comments to visitors and on the phone about the 'terrible care' that she is receiving. Overheard on phone stating: they won't give me my Tramadol. I don't care, I will get it brought in somehow. Isolating to room much of shift. Dismissive and irritable to contract technical writer. Medication compliant. Safe on unit. Getachew Hameed RN 05/07/2013 18:49 * Psych Treatment Team - Hailee Douglass - 05/07/2013 7249 EST Psychiatry Multidisciplinary Treatment Plan - Initial Date: 05/07/2013 Time: 15:59 Date of Admission: 05/06/2013 Legal Status: Voluntary Estimated LOS: 10 d Infection Control Issue: No DIAGNOSIS: AXIS I: Principal DX: 296.90 Mood D/O-NOS. [facility] Guideline: 9 days AXIS I: Principal DX: 305.50 Opioid Abuse. [facility] Guideline: 4 days AXIS II: Defer AXIS III: Patient Active Problem List *(H)Unspecified episodic mood disorder Priority: Medium (2) Date Noted: 05/07/2013 (H)Suicide attempt by drug ingestion Priority: Medium (2) Date Noted: 05/07/2013 Suicidal ideation Date Noted: 05/01/2013 Insulin overdose Date Noted: 05/01/2013 Depression Date Noted: 05/01/2013 Pain in joint, pelvic region and thigh Date Noted: 02/08/2012 Brachial plexus lesions Date Noted: 10/16/2011 Shoulder pain Date Noted: 10/16/2011 Hyperlipidemia Date Noted: 09/04/2011 Pain of left thigh Date Noted: 08/20/2011 Low back pain Date Noted: 11/14/2010 Left hip pain Date Noted: 10/06/2010 NO NARCOTICS, INAPPROPRIATE URINE SCREEN Left buttock pain Date Noted: 11/23/2009 Insertion of (intrauterine) contraceptive device Class: Permanent Date Noted: 08/26/2008 Contraceptive management Class: Permanent Date Noted: 08/11/2008 MIRENA IUD 08/26/2008 Polycystic ovaries Class: Permanent Date Noted: 01/21/2008 Routine history and physical examination of adult Class: Permanent Date Noted: 02/15/2005 Type II diabetes mellitus without mention of complication Class: Permanent Date Noted: 02/15/2005 AXIS IV: Realtionship probs, finsicnaial probs, AXIS V: On Admission: 25 AXIS V: Highest in past year: 65 Patient's Strengths: Intelligence, Established outpatient treatment team and Motivated Patient's Weaknesses: Traumatic history, Substance use, Limited supports and Vulnerability to psychological stress BASELINE LEVEL OF PSYCHOSOCIAL FUNCTIONING: fair Note Type: Initial PROBLEM LIST: PROBLEM: Depression Depression target symptoms: low mood, SI, hopelessness, diminished interest/pleasure and guilt/worthlessness Depression initial goals: reduction in target symptoms and tolerance of medication PROBLEM: SI/Self injury Self injury target symptoms: feelings of worthlessness, hopelessness, suicidal thoughts, status-post suicide attempt and limited coping skills Self injury initial goals: reduction in target symptoms, decreased SI/self-harm and improved copingskills PROBLEM: Behavioral dyscontrol Behavioral dyscontrol target symptoms: impulsivity, threatening actions to others, threatening actions to self, lack of awareness of dyscontrol and poor judgment Behavioral dyscontrol initial goals: reduction in target symptoms, absence of aggressive behaviors,safety of others and patient and successful re-direction of patient as needed PROBLEM: Substance use Substance use target symptoms: use impacting daily functioning and misuse of (comment) (prescription opiates) Substance use initial goals: reduction in target symptoms, safe withdrawal from symptoms, reductionin cravings, avoidance of medications which could lead to abuse and abstinence from substance PROBLEM: Multiple medical problems Multiple medical problems target symptoms: DM Multiple medical problems initial goals: increased stability of medical conditions, compliance withrecommended medications and cooperation w/ recommended medical lab testing/imaging/investigation PROBLEM: Psychosocial problems Psychosocial problems symptoms: economic strain, strained interpersonal relationships, employment problems and marital discord Psychosocial problems initial goals: reduction of target symptoms, identifying supportive resources, strengthening of supports, implementation of new coping skills and attend groups PROBLEM: Pain Pain target symptoms: pain affecting mood, functional impairment and ineffective pain relief with current medications Pain initial goals: pain rating <3, no impact of pain on mood, improved functioning and modification of pain management strategies TREATMENT PLAN: MEDICAL INTERVENTIONS: Psychiatric Evaluation, Physical Evaluation, Labratory Work-up, Consultations (comment), Daily contact with patient for Evaluation and Management, Daily meeting with multidisciplinary team to review patient's progress, Pharmacological Management and Drug/ETOH withdrawal Prevention. Pain consult MEDICAL EXPECTED OUTCOMES AT TIME OF DISCHARGE: Diagnostic clarification, No suicidal ideation, No homicidal ideation, Adequate control of impulses, Reduction of target symptoms, enough to safely transition to a less restrictive level of care., Stabilization of acute medical problems, enough to safely transition to a less intensive level of care., Adequate initial clinical response to pharmacological treatment and Insight gained on patterns of maladaptive behavior NURSING INTERVENTIONS: Behavioral/health assessment, daily, Pain assessment/management, daily, Assess need for observations, Monitoring of sleep/activity daily, Monitoring intake/output daily, Administer medications as per physicians order, Monitoring side-effects from medications daily, Education (See patient teaching record), Promotion of independence upon every interaction, Ensure safety in the environment of care throughout the 24 hr period, Stimulate participation in groups, Supportive counseling daily, Provision of structure and orientation in the environment of care upon every contact and Assistance with ADLs daily NURSING EXPECTED OUTCOMES AT TIME OF DISCHARGE: Patient eats and drinks sufficient quantities, Patient remains in bed during normal sleep hours, Patient reports adequate relief of pain, Patient adheres to pharmacotherapy as ordered, Patient reports adequate understanding of medication regimen, Patient performs ADLs up to physical capacity, Patient performs ADLs independently, Patient out of room,engaged with others during daytime hours, Patient interacts with others in socially appropriate manner, Patient refrains from verbal aggression, Patietn refrains from physical aggression, Patient refrains from self-harm behavior, Patient reports reduction in suicidal ideation, Patient attends grouptherapy sessions and Patient engages in discharge planning PSYCHOLOGICAL INTERVENTIONS: PROCESS GROUPS: Cognitive group therapy, up to 1 hour 2 times per week, Group therapy, up to 1 hour2 times per week and Grief/anger group therapy, up to 1 hour 4 times per week EDUCATION GROUP: Up to 1 hour 10 times per week TASKS GROUPS: Up to 1 hour 5 times per week PSYCHOLOGICAL EXPECTED OUTCOMES AT TIME OF DISCHARGE: Accepted grief and loss, Accepted responsibility for maladaptive behavior, Developed coping strategies/skills, Improved self-esteem, Increased awareness of self in relation to others, Increased expression of needs, Increased relaxation, Increased self- control and Increased knowledge about own illness SOCIAL INTERVENTIONS: Community referral, Discharge planning, Collaboration with outpatient providers and Collaboration with family/support network if allowed by patient SOCIAL EXPECTED OUTCOMES AT TIME OF DISCHARGE: Adequate housing in place, Outpatient referrals/follow-up appointments in place, Coordination of transportation from hospital to home is ensured, Client's strengths identified, Plan of aftercare communicated to providers and other support network, Famil y/couples intervention ensuring safe discharge is completed and Client can articulate strengths andgoals OUTPATIENT PROVIDERS INFORMATION: Psychiatrist: Terry Angel MD PCP:Annette Sidhu Treatment Team Members Resident MD: RN:NIKITA BOWEN RN Therapist: ERIK ECHOLS (AT) Dairy Equipment Installer: CHICHO Ravi PharmD: Patient Involvement This Treatment Plan was discussed with the patient/guardian. Attending physician statement/signature: Based on the information documented in this Initial Multidisciplinary Treatment Plan and in the medical record, I certify that: ?? This patient meets medical necessity criteria and requires acute inpatient psychiatric treatment, as evidenced by the documentation in this document of the diagnosis, active problems, target symptoms, initial goals, suggested diagnostic studies, interventions and expected outcomes at the time ofdischarge. ?? I hereby certify having a reasonable expectation that this patient has acute medical/psychiatricneeds which will require that he or she receives inpatient services for no less than two midnights. ?? This patient needs, on a daily basis, active treatment furnished directly by or requiring the supervision of inpatient psychiatric facility personnel. Treatment is expected to improve this patient's condition. Rosario Justin MD Attending Psychiatrist * Plan of Care - Nikita Bowen RN - 05/07/2013 1358 EST DATA: Pt alternated between spending time alone in the milieu and isolating in her room. Compliant with medications. Appetite fair for meals. Hygiene adequate. C/O ongoing headache. Family and friends in to visit. AM finger stick 135. No coverage. 12p finger stick 178. 2 units given. ACTION: Offered 1:1. Assessed mood/affect/thought/behavior. Encouraged group attendance and participation. Pt given medications for headache and back pain relief(See MAR) RESPONSE: Pt indicated that her current mood was linked to a headache that was resistant to the effects of non-narcotic analgesics. Affect flat and restricted. * Plan of Care - Blanca Mohan RN - 05/07/2013 0616 EST Problem: ALTERATION IN SLEEP Goal: Reports Nightly Sleep, Duration And Quality Intervention: Document duration, quality of sleep and reasons Data: CRUZ IV, on frequent observation, voluntary. Patient complained of headache and low back pain,controlled by PRN analgesics. Patient reminded to collect urine specimen and notify staff, specimencup provided. Patient woke up few times to use bathroom and to request pain medication, overall slept well. Action: Monitor for safety. Pain management, administer Tylenol + Flexeril at 0100 for headache andback pain, Motrin at 0430 for back pain. Response: Safe in unit. Pain was able to keep under controlled by PRN analgesics. Slept for about 6hrs. No other complaint. Blanca Mohan RN 05/07/2013 6:01 * Plan of Care - Stephanie Bravo RN - 05/06/2013 214 EST Problem: Ineffective Coping Goal: Cooperates With Admission Process Outcome: Completed Date Met: 05/06/13 Data: Patient complained of headache 11/05 and requested and received tylenol 1,000 mg po @ 1700 with minimal relief. Patient had small snack before dinner. FS @ 1700 126. Per SS patient received no insulin at that time. Patient resting in bed at the beginning of the shift and than out on the unit later in shift social with peers. Patient requested and received flexeril 10 mg po @ 1730 for back spasms with relief. Patient ate 100% of dinner in the dining room and social with peers at that time. Patient requested and received ibuprofen 600 mg po for headache of 7/10 @ 1900. States it is a caffeine headache and she hasn't had any coffee for a few days. States she continues to have no relief. Patient also requested ice pack and ice pack given for headache. Relayed to MD and no other medication to be given at this time. Patient also requested heat pack and heat pack given for back pain with moderate relief. Patient had visit with male visitor and argumentative with male and irritable in her interactions with him later in evening. Patient stated she is disappointed in his neglect of her and than stated she ruins all of her relationships anyways. FS @HS 157. No insulin required at that time. Minimal relief with headache and back pain. Fearful she will not be able to sleep. Action: Assessed for SI/HI and self harm. Provided 1:1. Encouraged groups and spending time out of room. Administered meds. Utilized teaching opportunites. Fasting after midnight for lipid profile marva on 05/07. Needs urine spec. Has cup in her room. Fluid restriction ordered @ 2130 secondary to lowsodium. Patient aware and is going to keep track of her intake on paper at bedside so it can be recorded. Response: Depressed mood, restricted affect. Positive si but states she will be safe on the unit. Multiple complaints of headache, back ache, and needs throughout the evening. Pleasant on interaction. Appetite good. Social with peers. Difficult visit with her boyfriend. Social on the unit and made multiple phone calls. Stephanie Bravo RN 05/06/2013 2200 * Plan of Care - Cisse, PRISCILA Graves - 05/06/2013 1418 EST Problem: Hospital orientation Goal: Cooperates With Admission Process Outcome: Completed Date Met: 05/06/13 Data: Pt arrived on unit at approx 1315. Cooperative with patient search and assessment questions. Pt stated that since she works here, it is important to her that as few people as possible find out that she is hospitalized. Stated she feels safe on the unit but reported feeling generally hopeless about her situation. Action: Admission assessment. Monitor affect, thought content, and behavior. Engage in therapeutic and reality based 1:1 interactions. Continue constant until MD orders indicate otherwise. Response: $321 godinez sent to the safe. Pt chose to keep her wallet with her. FS at 1520 116. SARAHY ESPITIA RN 05/06/2013 15:20 documented in this encounter Plan of Treatment Not on file documented as of this encounter Goals Goal Patient Goal Type Associated Problems Recent Progress Patient-Stated? Author HEMOGLOBIN A1C < 7.0 Result Component Type 2 diabetes mellitus ([facility]) 8.7(07/07/2015 5:05 EST) No Musa Annmarie documented as of this encounter Procedures Procedure Name Priority Date/Time Associated Diagnosis Comments GLUCOSE, GLUCOMETER Routine 05/19/2013 1 1:57 EST CELIAC DISEASE COMPREHENSIVE CASCADE Routine 05/19/2013 10:51 EST TISSUE TRANSGLUTAMINASE ANTIBODY, IGA Routine 05/19/2013 10:51 EST GLUCOSE, GLUCOMETER Routine 05/19/2013 7 :50 EST ELECTROLYTES Routine 05/19/2013 7:30 EST GLUCOSE, GLUCOMETER Routine 05/18/2013 2 1:05 EST GLUCOSE, GLUCOMETER Routine 05/18/2013 1 7:04 EST GLUCOSE, GLUCOMETER Routine 05/18/2013 1 2:17 EST GLUCOSE, GLUCOMETER Routine 05/18/2013 8 :09 EST GLUCOSE, GLUCOMETER Routine 05/17/2013 1 7:01 EST GLUCOSE, GLUCOMETER Routine 05/17/2013 1 1:56 EST GLUCOSE, GLUCOMETER Routine 05/17/2013 8 :02 EST GLUCOSE, GLUCOMETER Routine 05/16/2013 2 0:53 EST GLUCOSE, GLUCOMETER Routine 05/16/2013 1 7:49 EST GLUCOSE, GLUCOMETER Routine 05/16/2013 1 1:55 EST VITAMIN D (25,OH) Routine 05/16/2013 7:0 7 EST C REACTIVE PROTEIN Routine 05/16/2013 7: 07 EST GLUCOSE, GLUCOMETER Routine 05/16/2013 6 :20 EST GLUCOSE, GLUCOMETER Routine 05/15/2013 2 0:28 EST GLUCOSE, GLUCOMETER Routine 05/15/2013 1 7:09 EST GLUCOSE, GLUCOMETER Routine 05/15/2013 1 2:10 EST GLUCOSE, GLUCOMETER Routine 05/15/2013 8 :17 EST GLUCOSE, GLUCOMETER Routine 05/14/2013 2 2:12 EST GLUCOSE, GLUCOMETER Routine 05/14/2013 1 7:35 EST GLUCOSE, GLUCOMETER Routine 05/14/2013 1 2:03 EST ELECTROLYTES Routine 05/14/2013 7:54 EST GLUCOSE, GLUCOMETER Routine 05/14/2013 7 :46 EST GLUCOSE, GLUCOMETER Routine 05/13/2013 2 1:07 EST GLUCOSE, GLUCOMETER Routine 05/13/2013 1 7:06 EST GLUCOSE, GLUCOMETER Routine 05/13/2013 7 :54 EST GLUCOSE, GLUCOMETER Routine 05/12/2013 2 0:50 EST GLUCOSE, GLUCOMETER Routine 05/12/2013 1 7:15 EST GLUCOSE, GLUCOMETER Routine 05/12/2013 7 :54 EST GLUCOSE, GLUCOMETER Routine 05/11/2013 2 2:53 EST ELECTROLYTES Routine 05/11/2013 17:36 EST GLUCOSE, GLUCOMETER Routine 05/11/2013 1 1:55 EST GLUCOSE, GLUCOMETER Routine 05/11/2013 7 :47 EST GLUCOSE, GLUCOMETER Routine 05/10/2013 2 0:58 EST GLUCOSE, GLUCOMETER Routine 05/10/2013 1 7:12 EST GLUCOSE, GLUCOMETER Routine 05/10/2013 1 2:17 EST GLUCOSE, GLUCOMETER Routine 05/10/2013 6 :51 EST GLUCOSE, GLUCOMETER Routine 05/09/2013 1 9:29 EST GLUCOSE, GLUCOMETER Routine 05/09/2013 1 6:56 EST GLUCOSE, GLUCOMETER Routine 05/09/2013 1 1:49 EST GLUCOSE, GLUCOMETER Routine 05/09/2013 7 :47 EST GLUCOSE, GLUCOMETER Routine 05/08/2013 2 0:55 EST GLUCOSE, GLUCOMETER Routine 05/08/2013 1 7:00 EST GLUCOSE, GLUCOMETER Routine 05/08/2013 1 1:26 EST GLUCOSE, GLUCOMETER Routine 05/08/2013 8 :05 EST GLUCOSE, GLUCOMETER Routine 05/07/2013 2 1:21 EST GLUCOSE, GLUCOMETER Routine 05/07/2013 1 7:06 EST GLUCOSE, GLUCOMETER Routine 05/07/2013 1 1:36 EST GLUCOSE, GLUCOMETER Routine 05/07/2013 8 :09 EST URINALYSIS WITH MICROSCOPIC IF POSITIVE Routine 05/07/2013 8:03 EST UA REFLEX Routine 05/07/2013 8:03 EST LIPID PROFILE (INCLUDES CHOLESTEROL, TRIGLYCERIDES, HDL, LDL) Routine 05/07/2013 7:36 EST ELECTROLYTES Routine 05/07/2013 7:36 EST GLUCOSE, GLUCOMETER Routine 05/06/2013 2 0:53 EST GLUCOSE, GLUCOMETER Routine 05/06/2013 1 6:57 EST SCREENING GLUCOSE Routine 05/06/2013 16: 38 EST BUN Routine 05/06/2013 16:38 EST ALT Routine 05/06/2013 16:38 EST AST Routine 05/06/2013 16:38 EST TSH Routine 05/06/2013 16:38 EST CREATININE Routine 05/06/2013 16:38 EST ELECTROLYTES Routine 05/06/2013 16:38 EST GLUCOSE, GLUCOMETER Routine 05/06/2013 1 5:19 EST documented in this encounter Results * (ABNORMAL) GLUCOSE, GLUCOMETER (05/19/2013 11:57 EST) Glucose, Fingerstick 117(H) 70 - 100 mg/dl [facility] Circular Clerk ID [id number] [facility] Comment:Test Performed by [facility] Services 05/19/2013 11:5 7 EST 05/19/2013 11:59 EST Rosario Justin MD CHEMISTRY & BLOOD G ORDERABLES Performing Organization Address [facility] Co de Phone Number [facility] [address] [place] [address] * TTG AB, IGA, S (05/19/2013 10:51 EST) tTG Ab, IgA, S <1.2 <4.0 (Negative) U/mL [facility] Comment: Performed or Referred by: [facility] Labs: [facility], [address] [place] [address], Lab Dir: Roberto Kathleen III, MD 05/19/2013 10:5 1 EST 05/19/2013 10:59 EST Rosario Justin MD IMMUNOLOGY AND SERO LOGY ORDERABLES Performing Organization Address [facility] de Phone Number [facility] [address] [place] [address] * CELIAC DISEASE COMPREHENSIVE CASCADE (05/19/2013 10:51 EST) IgA 126 61 - 356 mg/dL [facility] DQ ALPHA 1 01,01 Not Applicable [facility] DQ beta 1 06:02,06: 09 Not Applicable [facility] Comment: (Note) Serologic Equivalent: 6,6 Celiac gene pairs No [facility] Comment: (Note) Method: Low to Medium or High Resolution Molecular Testing Celiac Dis Interp (Note) [facility] Comment: Permissive genes absent and negative serology. Celiac disease extremely unlikely. Performed or Referred by: [facility] Labs: [facility], [address] [place] [address], Lab Dir: Roberto Kathleen III, MD Blood specimen (specimen) 05/19/2013 10:51 EST 05/19/2013 10:59 EST Rosario Justin MD IMMUNOLOGY AND SERO LOGY ORDERABLES Performing Organization Address [facility] Co de Phone Number [facility] [address] [place] [address] * (ABNORMAL) GLUCOSE, GLUCOMETER (05/19/2013 7:50 EST) Glucose, Fingerstick 142(H) 70 - 100 mg/dl [facility] Circular Clerk ID [id number] [facility] Comment:Test Performed by [facility] 05/19/2013 7:50 EST 05/19/2013 7:51 EST Rosario Justin MD CHEMISTRY & BLOOD G ORDERABLES Performing Organization Address [facility] Phone Number [facility] [address] [place] [address] * ELECTROLYTES (05/19/2013 7:30 EST) Sodium 139 136 - 145 mEq/L [facility] Potassium 4.5 3.5 - 5.0 mEq/L [facility] Chloride 101 96 - 110 mEq/L [facility] CO2 27 24 - 32 mEq/L [facility] Blood specimen (specimen) 05/19/2013 7:30 EST 05/19/2013 7:58 EST Lynn Rutherford MD CHEMISTRY & BLOOD G ORDERABLES Performing Organization Address [facility] Phone Number [facility] [address] [place] [address] * (ABNORMAL) GLUCOSE, GLUCOMETER (05/18/2013 21:05 EST) Glucose, Fingerstick 134(H) 70 - 100 mg/dl [facility] Circular Clerk ID [id number] [facility] Comment:Test Performed by [facility] 05/18/2013 21:0 5 EST 05/18/2013 21:10 EST Rosario Justin MD CHEMISTRY & BLOOD G ORDERABLES Performing Organization Address [facility] Phone Number [facility] [address] [place] [address] * (ABNORMAL) GLUCOSE, GLUCOMETER (05/18/2013 17:04 EST) Glucose, Fingerstick 146(H) 70 - 100 mg/dl [facility] Circular Clerk ID [id number] [facility] Comment:Test Performed by [facility] 05/18/2013 17:0 4 EST 05/18/2013 17:06 EST Rosario Justin MD CHEMISTRY & BLOOD G ORDERABLES Performing Organization Address [facility] Co de Phone Number [facility] [address] [place] [address] * (ABNORMAL) GLUCOSE, GLUCOMETER (05/18/2013 12:17 EST) Glucose, Fingerstick 145(H) 70 - 100 mg/dl [facility] Circular Clerk ID [id number] [facility] Comment:Test Performed by [facility] 05/18/2013 12:1 7 EST 05/18/2013 12:23 EST Rosario Justin MD CHEMISTRY & BLOOD G ORDERABLES Performing Organization Address [facility] Co de Phone Number [facility] [address] [place] [address] * (ABNORMAL) GLUCOSE, GLUCOMETER (05/18/2013 8:09 EST) Glucose, Fingerstick 126(H) 70 - 100 mg/dl [facility] Circular Clerk ID [id number] [facility] Comment:Test Performed by [facility] 05/18/2013 8:09 EST 05/18/2013 8:23 EST Rosario Justin MD CHEMISTRY & BLOOD G ORDERABLES Performing Organization Address [facility] Co de Phone Number [facility] [address] [place] [address] * (ABNORMAL) GLUCOSE, GLUCOMETER (05/17/2013 17:01 EST) Glucose, Fingerstick 210(H) 70 - 100 mg/dl [facility] Circular Clerk ID [id number] [facility] Comment:Test Performed by [facility] 05/17/2013 17:0 1 EST 05/17/2013 17:02 EST Rosario Justin MD CHEMISTRY & BLOOD G ORDERABLES Performing Organization Address [facility] Phone Number [facility] [address] [place] [address] * (ABNORMAL) GLUCOSE, GLUCOMETER (05/17/2013 11:56 EST) Glucose, Fingerstick 136(H) 70 - 100 mg/dl [facility] Circular Clerk ID [id number] [facility] Comment:Test Performed by [facility] 05/17/2013 11:5 6 EST 05/17/2013 11:59 EST Rosario Justin MD CHEMISTRY & BLOOD G ORDERABLES Performing Organization Address [facility] Phone Number [facility] [address] [place] [address] * (ABNORMAL) GLUCOSE, GLUCOMETER (05/17/2013 8:02 EST) Glucose, Fingerstick 159(H) 70 - 100 mg/dl [facility] Circular Clerk ID [id number] [facility] Comment:Test Performed by [facility] 05/17/2013 8:02 EST 05/17/2013 8:10 EST Rosario Justin MD CHEMISTRY & BLOOD G ORDERABLES Performing Organization Address [facility] Phone Number [facility] [address] [place] [address] * (ABNORMAL) GLUCOSE, GLUCOMETER (05/16/2013 20:53 EST) Glucose, Fingerstick 115(H) 70 - 100 mg/dl [facility] Circular Clerk ID [id number] [facility] Comment:Test Performed by [facility] 05/16/2013 20:5 3 EST 05/16/2013 21:02 EST Rosario Justin MD CHEMISTRY & BLOOD G ORDERABLES Performing Organization Address [facility]/State/ZIP Co de Phone Number [facility] [address] [place] [address] * (ABNORMAL) GLUCOSE, GLUCOMETER (05/16/2013 17:49 EST) Glucose, Fingerstick 127(H) 70 - 100 mg/dl [facility] Circular Clerk ID [id number] [facility] Comment:Test Performed by [facility] 05/16/2013 17:4 9 EST 05/16/2013 17:50 EST Rosario Justin MD CHEMISTRY & BLOOD G ORDERABLES Performing Organization Address [facility] Co de Phone Number [facility] [address] [place] [address] * (ABNORMAL) GLUCOSE, GLUCOMETER (05/16/2013 11:55 EST) Glucose, Fingerstick 147(H) 70 - 100 mg/dl [facility] Circular Clerk ID [id number] [facility] Comment:Test Performed by [facility] 05/16/2013 11:5 5 EST 05/16/2013 12:01 EST Rosario Justin MD CHEMISTRY & BLOOD G ORDERABLES Performing Organization Address [facility] Co de Phone Number [facility] [address] [place] [address] * (ABNORMAL) C-REACTIVE PROTEIN (05/16/2013 7:07 EST) C-Reactive Protein 1.2(H) <1.0 mg/dl [facility] Blood specimen (specimen) 05/16/2013 7:07 EST 05/16/2013 8:16 EST Rosario Justin MD CHEMISTRY & BLOOD G ORDERABLES Performing Organization Address [facility] Co de Phone Number [facility] [address] [place] [address] * VITAMIN D (25,OH) (05/16/2013 7:07 EST) 25OH Vitamin D Tot 14.5 ng/ml [facility] Comment: Reference Range: Deficient = <10 ng/ml Insufficient = 10-30 ng/ml Sufficient = 30-100 ng/ml Toxic = >100 ng/ml Blood specimen (specimen) 05/16/2013 7:07 EST 05/16/2013 8:16 EST Rosario Justin MD CHEMISTRY & BLOOD G ORDERABLES Performing Organization Address [facility] Co de Phone Number [facility] [address] [place] [address] * (ABNORMAL) GLUCOSE, GLUCOMETER (05/16/2013 6:20 EST) Glucose, Fingerstick 113(H) 70 - 100 mg/dl [facility] Circular Clerk ID [id number] [facility] Comment:Test Performed by [facility] [employer] 05/16/2013 6:20 EST 05/16/2013 6:22 EST Rosario Justin MD CHEMISTRY & BLOOD G ORDERABLES Performing Organization Address [facility] Co de Phone Number [facility] [address] [place] [address] * (ABNORMAL) GLUCOSE, GLUCOMETER (05/15/2013 20:28 EST) Glucose, Fingerstick 193(H) 70 - 100 mg/dl [facility] Circular Clerk ID [id number] [facility] Comment[facility] 05/15/2013 20:2 8 EST 05/15/2013 20:38 EST Rosairo Justin MD CHEMISTRY & BLOOD G ORDERABLES Performing Organization Address [facility] de Phone Number [facility] [address] [place] [address] * (ABNORMAL) GLUCOSE, GLUCOMETER (05/15/2013 17:09 EST) Glucose, Fingerstick 112(H) 70 - 100 mg/dl [facility] Circular Clerk ID [id number] [facility] Comment:Test Performed by [facility] [facility] 05/15/2013 17:0 9 EST 05/15/2013 17:11 EST Rosario Justin MD CHEMISTRY & BLOOD G ORDERABLES Performing Organization Address [facility] Phone Number [facility] [address] [place] [address] * (ABNORMAL) GLUCOSE, GLUCOMETER (05/15/2013 12:10 EST) Glucose, Fingerstick 167(H) 70 - 100 mg/dl [facility] Circular Clerk ID [id number] [facility] Comment:Test Performed by [employer] [facility] 05/15/2013 12:1 0 EST 05/15/2013 12:11 EST Rosario Justin MD CHEMISTRY & BLOOD G ORDERABLES Performing Organization Address [facility] Phone Number [facility] [address] [place] [address] * (ABNORMAL) GLUCOSE, GLUCOMETER (05/15/2013 8:17 EST) Glucose, Fingerstick 127(H) 70 - 100 mg/dl [facility] Circular Clerk ID [id number] [facility] Comment:Test Performed by [employer] [facility] 05/15/2013 8:17 EST 05/15/2013 8:26 EST Rosario Justin MD CHEMISTRY & BLOOD G ORDERABLES Performing Organization Address [facility] de Phone Number [facility] [address] [place] [address] * (ABNORMAL) GLUCOSE, GLUCOMETER (05/14/2013 22:12 EST) Glucose, Fingerstick 130(H) 70 - 100 mg/dl [facility] Circular Clerk ID [id number] [facility] Comment:Test Performed by [facility] [facility] 05/14/2013 22:1 2 EST 05/14/2013 22:13 EST Rosario Justin MD CHEMISTRY & BLOOD G ORDERABLES Performing Organization Address [facility] Co de Phone Number [facility] [address] [place] [address] * (ABNORMAL) GLUCOSE, GLUCOMETER (05/14/2013 17:35 EST) Glucose, Fingerstick 111(H) 70 - 100 mg/dl [facility] Circular Clerk ID [id number] [facility] Comment:Test Performed by [employer] [facility] 05/14/2013 17:3 5 EST 05/14/2013 17:36 EST Rosario Justin MD CHEMISTRY & BLOOD G ORDERABLES Performing Organization Address [facility] de Phone Number [facility] [address] [place] [address] * (ABNORMAL) GLUCOSE, GLUCOMETER (05/14/2013 12:03 EST) Glucose, Fingerstick 130(H) 70 - 100 mg/dl [facility] Circular Clerk ID [id number] [facility] Comment:Test Performed by [employer] [facility] 05/14/2013 12:0 3 EST 05/14/2013 12:09 EST Rosario Justin MD CHEMISTRY & BLOOD G ORDERABLES Performing Organization Address [facility] de Phone Number [facility] [address] [place] [address] * ELECTROLYTES (05/14/2013 7:54 EST) Sodium 136 136 - 145 mEq/L [facility] Potassium 4.4 3.5 - 5.0 mEq/L [facility] Chloride 100 96 - 110 mEq/L [facility] CO2 26 24 - 32 mEq/L [facility] Blood specimen (specimen) 05/14/2013 7:54 EST 05/14/2013 8:24 EST Lynn Rutherford MD CHEMISTRY & BLOOD G ORDERABLES Performing Organization Address [facility] Co de Phone Number [facility] [address] [place] [address] * (ABNORMAL) GLUCOSE, GLUCOMETER (05/14/2013 7:46 EST) Glucose, Fingerstick 124(H) 70 - 100 mg/dl [facility] Circular Clerk ID [id number] [facility] Comment:Test Performed by [facility] Services 05/14/2013 7:46 EST 05/14/2013 7:49 EST Rosario Justin MD CHEMISTRY & BLOOD G ORDERABLES Performing Organization Address [facility] Co de Phone Number [facility] [address] [place] [address] * (ABNORMAL) GLUCOSE, GLUCOMETER (05/13/2013 21:07 EST) Glucose, Fingerstick 203(H) 70 - 100 mg/dl [facility] Circular Clerk ID [id number] [facility] Comment:[facility] 05/13/2013 21:0 7 EST 05/13/2013 21:08 EST Rosario Justin MD CHEMISTRY & BLOOD G ORDERABLES Performing Organization Address [facility] [place] Phone Number [facility] [address] [place] [address] * (ABNORMAL) GLUCOSE, GLUCOMETER (05/13/2013 17:06 EST) Glucose, Fingerstick 129(H) 70 - 100 mg/dl [facility] Circular Clerk ID [id number] [facility] Comment:[facility] 05/13/2013 17:0 6 EST 05/13/2013 17:08 EST Rosario Justin MD CHEMISTRY & BLOOD G ORDERABLES Performing Organization Address [facility] Co de Phone Number [facility] [address] [place] [address] * (ABNORMAL) GLUCOSE, GLUCOMETER (05/13/2013 7:54 EST) Glucose, Fingerstick 150(H) 70 - 100 mg/dl [facility] Circular Clerk ID [id number] [facility] Comment:Test Performed by [facility] 05/13/2013 7:54 EST 05/13/2013 7:56 EST Rosario Justin MD CHEMISTRY & BLOOD G ORDERABLES Performing Organization Address [facility] Phone Number [facility] [address] [place] [address] * (ABNORMAL) GLUCOSE, GLUCOMETER (05/12/2013 20:50 EST) Glucose, Fingerstick 173(H) 70 - 100 mg/dl [facility] Circular Clerk ID [id number] [facility] Comment:Test Performed by [facility] 05/12/2013 20:5 0 EST 05/12/2013 20:55 EST Rosario Justin MD CHEMISTRY & BLOOD G ORDERABLES Performing Organization Address [facility] Phone Number [facility] [address] [place] [address] * (ABNORMAL) GLUCOSE, GLUCOMETER (05/12/2013 17:15 EST) Glucose, Fingerstick 149(H) 70 - 100 mg/dl [facility] Circular Clerk ID [id number] [facility] Comment:Test Performed by [facility] 05/12/2013 17:1 5 EST 05/12/2013 17:18 EST Rosario Justin MD CHEMISTRY & BLOOD G ORDERABLES Performing Organization Address [facility] Phone Number [facility] [address] [place] [address] * (ABNORMAL) GLUCOSE, GLUCOMETER (05/12/2013 7:54 EST) Glucose, Fingerstick 137(H) 70 - 100 mg/dl [facility] Circular Clerk ID [id number] [facility] Comment:Test Performed by [facility] 05/12/2013 7:54 EST 05/12/2013 7:56 EST Rosario Justin MD CHEMISTRY & BLOOD G ORDERABLES Performing Organization Address [facility] Phone Number [facility] [address] [place] [address] * (ABNORMAL) GLUCOSE, GLUCOMETER (05/11/2013 22:53 EST) Glucose, Fingerstick 174(H) 70 - 100 mg/dl [facility] Circular Clerk ID [id number] [facility] Comment:Test Performed by [facility] 05/11/2013 22:5 3 EST 05/11/2013 22:59 EST Rosario Justin MD CHEMISTRY & BLOOD G ORDERABLES Performing Organization Address [facility] Phone Number [facility] [address] [place] [address] * (ABNORMAL) ELECTROLYTES (05/11/2013 17:36 EST) Sodium 132(L) 136 - 145 mEq/L [facility] Potassium 3.7 3.5 - 5.0 mEq/L [facility] Chloride 93(L) 96 - 110 mEq/L [facility] CO2 24 24 - 32 mEq/L [facility] Blood specimen (specimen) 05/11/2013 17:36 EST 05/11/2013 18:32 EST Rosario Justin MD CHEMISTRY & BLOOD G ORDERABLES Performing Organization Address [facility] Phone Number [facility] [address] [place] [address] * (ABNORMAL) GLUCOSE, GLUCOMETER (05/11/2013 11:55 EST) Glucose, Fingerstick 134(H) 70 - 100 mg/dl [facility] Circular Clerk ID [id number] [facility] Comment:Test Performed by [facility] 05/11/2013 11:5 5 EST 05/11/2013 11:56 EST Rosario Justin MD CHEMISTRY & BLOOD G ORDERABLES Performing Organization Address [facility] Co de Phone Number [facility] [address] [place] [address] * (ABNORMAL) GLUCOSE, GLUCOMETER (05/11/2013 7:47 EST) Glucose, Fingerstick 136(H) 70 - 100 mg/dl [facility] Circular Clerk ID [id number] [facility] Comment:Test Performed by [facility] 05/11/2013 7:47 EST 05/11/2013 7:49 EST Rosario Justin MD CHEMISTRY & BLOOD G ORDERABLES Performing Organization Address [facility] Co de Phone Number [facility] [address] [place] [address] * (ABNORMAL) GLUCOSE, GLUCOMETER (05/10/2013 20:58 EST) Glucose, Fingerstick 184(H) 70 - 100 mg/dl [facility] Circular Clerk ID [id number] [facility] Comment:Test Performed by [facility] 05/10/2013 20:5 8 EST 05/10/2013 21:00 EST Rosario Justin MD CHEMISTRY & BLOOD G ORDERABLES Performing Organization Address [facility] Co de Phone Number [facility] [address] [place] [address] * (ABNORMAL) GLUCOSE, GLUCOMETER (05/10/2013 17:12 EST) Glucose, Fingerstick 138(H) 70 - 100 mg/dl [facility] Circular Clerk ID [id number] [facility] Comment:Test Performed by [facility] 05/10/2013 17:1 2 EST 05/10/2013 17:14 EST Rosario Justin MD CHEMISTRY & BLOOD G ORDERABLES Performing Organization Address [facility]/ZIP Co de Phone Number [facility] [address] [place] [address] * (ABNORMAL) GLUCOSE, GLUCOMETER (05/10/2013 12:17 EST) Glucose, Fingerstick 160(H) 70 - 100 mg/dl [facility] Circular Clerk ID [id number] [facility] Comment:Test Performed by [facility] [employer] 05/10/2013 12:1 7 EST 05/10/2013 12:18 EST Rosario Justin MD CHEMISTRY & BLOOD G ORDERABLES Performing Organization Address [facility] Co de Phone Number [facility] [address] [place] [address] * (ABNORMAL) GLUCOSE, GLUCOMETER (05/10/2013 6:51 EST) Glucose, Fingerstick 135(H) 70 - 100 mg/dl [facility] Circular Clerk ID [id number] [facility] Comment:Test Performed by [employer] 05/10/2013 6:51 EST 05/10/2013 6:52 EST Rosario Justin MD CHEMISTRY & BLOOD G ORDERABLES Performing Organization Address [facility] de Phone Number [facility] [address] [place] [address] * (ABNORMAL) GLUCOSE, GLUCOMETER (05/09/2013 19:29 EST) Glucose, Fingerstick 181(H) 70 - 100 mg/dl [facility] Circular Clerk ID [id number] [facility] Comment:Test Performed by [employer] 05/09/2013 19:2 9 EST 05/09/2013 19:31 EST Rosario Justin MD CHEMISTRY & BLOOD G ORDERABLES Performing Organization Address [facility] de Phone Number [facility] [address] [place] [address] * (ABNORMAL) GLUCOSE, GLUCOMETER (05/09/2013 16:56 EST) Glucose, Fingerstick 119(H) 70 - 100 mg/dl [facility] Circular Clerk ID [id number] [facility] Comment:Test Performed by [employer] [facility] 05/09/2013 16:5 6 EST 05/09/2013 16:57 EST Rosario Justin MD CHEMISTRY & BLOOD G ORDERABLES Performing Organization Address [facility] Phone Number [facility] [address] [place] [address] * (ABNORMAL) GLUCOSE, GLUCOMETER (05/09/2013 11:49 EST) Glucose, Fingerstick 204(H) 70 - 100 mg/dl [facility] Circular Clerk ID [id number] [facility] Comment:Test Performed by [employer] [facility] 05/09/2013 11:4 9 EST 05/09/2013 11:55 EST Rosario Justin MD CHEMISTRY & BLOOD G ORDERABLES Performing Organization Address [facility] Phone Number [facility] [address] [place] [address] * (ABNORMAL) GLUCOSE, GLUCOMETER (05/09/2013 7:47 EST) Glucose, Fingerstick 124(H) 70 - 100 mg/dl [facility] Circular Clerk ID [id number] [facility] Comment:Test Performed by [employer] [facility] 05/09/2013 7:47 EST 05/09/2013 8:04 EST Rosario Justin MD CHEMISTRY & BLOOD G ORDERABLES Performing Organization Address [facility] Phone Number [facility] [address] [place] [address] * (ABNORMAL) GLUCOSE, GLUCOMETER (05/08/2013 20:55 EST) Glucose, Fingerstick 114(H) 70 - 100 mg/dl [facility] Circular Clerk ID [id number] [facility] Comment:Test Performed by [facility] 05/08/2013 20:5 5 EST 05/08/2013 21:02 EST Rosario Justin MD CHEMISTRY & BLOOD G ORDERABLES Performing Organization Address [facility]/ZIP Co de Phone Number [facility] [address] [place] [address] * (ABNORMAL) GLUCOSE, GLUCOMETER (05/08/2013 17:00 EST) Glucose, Fingerstick 121(H) 70 - 100 mg/dl [facility] Circular Clerk ID [id number] [facility] Comment:Test Performed by [facility] 05/08/2013 17:0 0 EST 05/08/2013 17:01 EST Rosario Justin MD CHEMISTRY & BLOOD G ORDERABLES Performing Organization Address [facility] Co de Phone Number [facility] [address] [place] [address] * (ABNORMAL) GLUCOSE, GLUCOMETER (05/08/2013 11:26 EST) Glucose, Fingerstick 220(H) 70 - 100 mg/dl [facility] Circular Clerk ID [id number] [facility] Comment:Test Performed by [facility] 05/08/2013 11:2 6 EST 05/08/2013 11:32 EST Rosario Justin MD CHEMISTRY & BLOOD G ORDERABLES Performing Organization Address [facility] Co de Phone Number [facility] [address] [place] [address] * (ABNORMAL) GLUCOSE, GLUCOMETER (05/08/2013 8:05 EST) Glucose, Fingerstick 144(H) 70 - 100 mg/dl [facility] Circular Clerk ID [id number] [facility] Comment:Test Performed by [facility] 05/08/2013 8:05 EST 05/08/2013 8:13 EST Rosario Justin MD CHEMISTRY & BLOOD G ORDERABLES Performing Organization Address [facility]/ZIP Co de Phone Number [facility] [address] [place] [address] * (ABNORMAL) GLUCOSE, GLUCOMETER (05/07/2013 21:21 EST) Glucose, Fingerstick 126(H) 70 - 100 mg/dl [facility] Circular Clerk ID [id number] [facility] Comment:Test Performed by [facility] 05/07/2013 21:2 1 EST 05/07/2013 21:24 EST Rosario Justin MD CHEMISTRY & BLOOD G ORDERABLES Performing Organization Address [facility] Co de Phone Number [facility] [address] [place] [address] * (ABNORMAL) GLUCOSE, GLUCOMETER (05/07/2013 17:06 EST) Glucose, Fingerstick 104(H) 70 - 100 mg/dl [facility] Circular Clerk ID [id number] [facility] Comment:Test Performed by [facility] 05/07/2013 17:0 6 EST 05/07/2013 17:07 EST Rosario Justin MD CHEMISTRY & BLOOD G ORDERABLES Performing Organization Address [facility] de Phone Number [facility] [address] [place] [address] * (ABNORMAL) GLUCOSE, GLUCOMETER (05/07/2013 11:36 EST) Glucose, Fingerstick 178(H) 70 - 100 mg/dl [facility] Circular Clerk ID [id number] [facility] Comment:Test Performed by [facility] 05/07/2013 11:3 6 EST 05/07/2013 11:38 EST Rosario Justin MD CHEMISTRY & BLOOD G ORDERABLES Performing Organization Address [facility] Co de Phone Number [facility] [address] [place] [address] * (ABNORMAL) GLUCOSE, GLUCOMETER (05/07/2013 8:09 EST) Glucose, Fingerstick 135(H) 70 - 100 mg/dl [facility] Circular Clerk ID [id number] [facility] Comment:[facility] 05/07/2013 8:09 EST 05/07/2013 8:20 EST Rosario Justin MD CHEMISTRY & BLOOD G ORDERABLES Performing Organization Address [facility] Co de Phone Number [facility] [address] [place] [address] * UA REFLEX (05/07/2013 8:03 EST) Pathologist [facility] UA Billing Microscopic not indicated. [facility] 05/07/2013 8:03 EST 05/07/2013 8:36 EST Florentin Webb MD URINALYSIS ORDERABLE S Performing Organization Address [facility] Co de Phone Number [facility] [address] [place] [address] * URINALYSIS (05/07/2013 8:03 EST) Pathologist [facility] Color, UA Yellow [facility] Clarity, UA Hazy [facility] Glucose, UA Neg Neg [facility] Bilirubin, UA Neg Neg [facility] Ketones, UA Neg Neg [facility] Specific Leona, Urine 1.015 1.001 - 1.035 [facility] Blood, UA Neg Neg [facility] pH, UA 6.0 4.6 - 8.0 [facility] Protein, UA Neg Neg [facility] Urobilinogen, UA 0.2 0.2 - 1.0 E.U./dl [facility] Nitrite, UA Neg Neg [facility] Leuk Esterase Neg Neg [facility] Urine specimen (specimen) URINE / Unknown 05/07/2013 8:03 EST 05/07/2013 8:36 EST Florentin Webb MD URINALYSIS ORDERABLE S Performing Organization Address [facility] Co de Phone Number [facility] [address] [place] [address] * (ABNORMAL) ELECTROLYTES (05/07/2013 7:36 EST) Sodium 130(L) 136 - 145 mEq/L [facility] Potassium 4.9 3.5 - 5.0 mEq/L [facility] Chloride 95(L) 96 - 110 mEq/L [facility] CO2 27 24 - 32 mEq/L [facility] Blood specimen (specimen) 05/07/2013 7:36 EST 05/07/2013 8:30 EST Cecily Villeda MD CHEMISTRY & BLOOD GAS ORDERABLES Performing Organization Address [facility] de Phone Number [facility] [address] [place] [address] * LIPID PROFILE (INCLUDES CHOLESTEROL, TRIGLYCERIDES, HDL, LDL) (05/07/2013 7:36 EST) Cholesterol 224 mg/dl [facility] Comment: Desirable:<200 Borderline High:200-239 High:>wh=[id number] Triglycerides 306 mg/dl [facility] Comment: Normal:<150 Borderline High:150-199 High:200-499 Very High:>gy=679 HDL 54 mg/dl [facility] Comment: Low:<40 Normal:40-60 Desirable: >60 LDL, Calculated 109 mg/dl [facility] Comment: Optimal:<100 Near Optimal:100-129 Borderline High:130-159 High:160-189 Very High:>xx=546 Chol/HDL Ratio 4.1 [facility] Fasting? Unknown [facility] Non HDL Cholesterol 170 mg/dl [facility] Comment: Desirable:<130 Borderline:130-159 High: 160-189 Very High: >xv=[id number] Blood specimen (specimen) 05/07/2013 7:36 EST 05/07/2013 8:30 EST Florentin Webb MD CHEMISTRY & BLOOD GA S ORDERABLES Performing Organization Address [facility] Co de Phone Number [facility] [address] [place] [address] * (ABNORMAL) GLUCOSE, GLUCOMETER (05/06/2013 20:53 EST) Glucose, Fingerstick 157(H) 70 - 100 mg/dl [facility] Circular Clerk [place] [id number] [facility] Comment:Test Performed by [facility] 05/06/2013 20:5 3 EST 05/06/2013 21:12 EST Rosario Justin MD CHEMISTRY & BLOOD G ORDERABLES Performing Organization Address [facility] de Phone Number [facility] [address] [place] [address] * (ABNORMAL) GLUCOSE, GLUCOMETER (05/06/2013 16:57 EST) Glucose, Fingerstick 126(H) 70 - 100 mg/dl [facility] Circular Clerk ID [id number] [facility] Comment:Test Performed by [facility] 05/06/2013 16:5 7 EST 05/06/2013 17:07 EST Rosario Justin MD CHEMISTRY & BLOOD G ORDERABLES Performing Organization Address [facility] Co de Phone Number [facility] [address] [place] [address] * TSH (05/06/2013 16:38 EST) TSH 0.55 0.35 - 5.00 uIU/ml [facility] Blood specimen (specimen) 05/06/2013 16:38 EST 05/06/2013 17:12 EST Florentin Webb MD CHEMISTRY & BLOOD GA S ORDERABLES Performing Organization Address [facility] Co de Phone Number [facility] [address] [place] [address] * (ABNORMAL) ALT (05/06/2013 16:38 EST) ALT 58(H) 9 - 52 U/L [facility] Blood specimen (specimen) 05/06/2013 16:38 EST 05/06/2013 17:12 EST Florentin Webb MD CHEMISTRY & BLOOD GA S ORDERABLES Performing Organization Address [facility]/ZIP Co de Phone Number [facility] [address] [place] [address] * AST (05/06/2013 16:38 EST) AST 41 15 - 46 U/L [facility] Blood specimen (specimen) 05/06/2013 16:38 EST 05/06/2013 17:12 EST Florentin Webb MD CHEMISTRY & BLOOD GA S ORDERABLES Performing Organization Address [facility] Co de Phone Number [facility] [address] [place] [address] * CREATININE (05/06/2013 16:38 EST) Creatinine 0.54 0.52 - 1.04 mg/dl [facility] GFR, Calculated >60 >60 ml/min/1.7 3m2 [facility] Blood specimen (specimen) 05/06/2013 16:38 EST 05/06/2013 17:12 EST Florentin Webb MD CHEMISTRY & BLOOD GA S ORDERABLES Performing Organization Address [facility] de Phone Number [facility] [address] [place] [address] * BUN (05/06/2013 16:38 EST) BUN 13 10 - 26 mg/dl [facility] Blood specimen (specimen) 05/06/2013 16:38 EST 05/06/2013 17:12 EST Florentin Webb MD CHEMISTRY & BLOOD GA S ORDERABLES Performing Organization Address [facility] Co de Phone Number [facility] [address] [place] [address] * (ABNORMAL) ELECTROLYTES (05/06/2013 16:38 EST) Sodium 131(L) 136 - 145 mEq/L [facility] Potassium 4.4 3.5 - 5.0 mEq/L [facility] Chloride 94(L) 96 - 110 mEq/L [facility] CO2 26 24 - 32 mEq/L [facility] Blood specimen (specimen) 05/06/2013 16:38 EST 05/06/2013 17:12 EST Florentin Webb MD CHEMISTRY & BLOOD GA S ORDERABLES Performing Organization Address [facility] de Phone Number [facility] [address] [place] [address] * (ABNORMAL) SCREENING GLUCOSE (05/06/2013 16:38 EST) Glucose, Screening 118(H) 70 - 100 mg/dl [facility] Blood specimen (specimen) 05/06/2013 16:38 EST 05/06/2013 17:12 EST Florentin Webb MD CHEMISTRY & BLOOD GA S ORDERABLES Performing Organization Address [facility] Phone Number [facility] [address] [place] [address] * (ABNORMAL) GLUCOSE, GLUCOMETER (05/06/2013 15:19 EST) Glucose, Fingerstick 116(H) 70 - 100 mg/dl [facility] Circular Clerk ID [id number] [facility] Comment:Test Performed by [facility] Services 05/06/2013 15:1 9 EST 05/06/2013 15:21 EST Rosario Justin MD CHEMISTRY & BLOOD G ORDERABLES Performing Organization Address [facility] de Phone Number [facility] [address] [place] [address] documented in this encounter Visit Diagnoses Diagnosis Depression Depressive disorder, not elsewhere classified Suicidal ideation Suicide attempt by drug ingestion (HCC-CMS) Poisoning by unspecified drug or medicinal substance Unspecified episodic mood disorder Unspecified episodic mood disorder Suicide attempt by drug ingestion (HCC-CMS) Poisoning by unspecified drug or medicinal substance documented in this encounter Administered Medications Inactive Administered Medications - up to 3 most recent administrations Medication Order MAR Action Action Date Dose Rate Site acetaminophen (TYLENOL) tablet 1,000 mg 1,000 mg, oral, EVERY 4 HOURS PRN, Starting on Sat05/06/13 at 1549, Until Sat05/19/13 at 1518, Pain, Routine Given 05/17/2013 21:55 EST 1,000 mg Given 05/16/2013 6:24 EST 1,000 mg Given 05/15/2013 21:31 EST 1,000 mg Cholecalciferol (Vitamin D3) tablet 400 Units 400 Units, oral, DAILY, First dose on Sat05/19/13 at 1000, Until Discontinued, Routine Given 05/19/2013 12:3 5 EST 400 Units cyclobenzaprine (FLEXERIL) tablet 10 mg 10 mg, oral, 3 TIMES DAILY PRN, Starting on Sat05/06/13 at 1549, Until Sat05/08/13 at 1751, Muscle Spasms, Routine Given 05/08/2013 12:02 EST 10 mg Given 05/08/2013 4:08 EST 10 mg Given 05/07/2013 21:56 EST 10 mg cyclobenzaprine (FLEXERIL) tablet 10 mg 10 mg, oral, 3 TIMES DAILY, First dose (after last modification) on Sat05/08/13 at 2100, Until Discontinued, Routine Given 05/19/2013 8:00 EST 10 mg Given 05/18/2013 21:04 EST 10 mg Given 05/18/2013 13:59 EST 10 mg dexmethylphenidate (FOCALIN XR) multiphase capsule capsule,ER multiphase 50-50 15 mg 15 mg, oral, 2 TIMES DAILY BEFORE BREAKFAST & LUNCH, First dose (after last reorder) on Sat05/07/13 at 0700, Until Discontinued, Routine Given 05/08/2013 10:50 EST 15 mg Given 05/08/2013 8:21 EST 15 mg Given 05/07/2013 11:08 EST 15 mg dexmethylphenidate (FOCALIN XR) multiphase capsule capsule,ER multiphase 50-50 15 mg 15 mg, oral, 2 TIMES DAILY BEFORE BREAKFAST & LUNCH, First dose (after last modification) on Sat05/11/13 at 0700, Until Discontinued, Routine Given 05/19/2013 12:34 EST 15 mg Given 05/19/2013 6:38 EST 15 mg Given 05/18/2013 11:24 EST 15 mg DULoxetine (CYMBALTA) capsule 30 mg 30 mg, oral, DAILY, First dose on Sat /18/14 at 0900, Until Discontinued, Routine Given 05/19/2013 8:00 EST 30 mg Given 05/18/2013 8:31 EST 30 mg Given 05/17/2013 8:19 EST 30 mg DULoxetine (CYMBALTA) capsule 60 mg 60 mg, oral, 2 TIMES DAILY, First dose on Sat05/06/13 at 2100, Until Discontinued, Routine Given 05/15/2013 8:36 EST 60 mg Given 05/14/2013 20:09 EST 60 mg Given 05/14/2013 8:30 EST 60 mg DULoxetine (CYMBALTA) capsule 60 mg 60 mg, oral, AT BEDTIME, First dose (after last modification) on Sat05/15/13 at 2100, Until Discontinued, Routine Given 05/18/2013 21:04 EST 60 mg Given 05/17/2013 21:55 EST 60 mg Given 05/16/2013 22:01 EST 60 mg fluticasone (FLONASE) nasal spray 1 [place] 1 [place], nasal - both, DAILY PRN, Starting on Sat05/06/13 at 1551, Until Sat05/19/13 at 1518, Rhinitis, Routine Given 05/14/2013 23:18 EST 1 [place] Given 05/12/2013 20:28 EST 1 [place] hydrOXYzine (ATARAX) tablet 25 mg 25 mg, oral, 3 TIMES DAILY PRN, Starting on Sat05/14/13 at 1701, Until Sat05/19/13 at 1518, Anxiety, Routine Given 05/19/2013 9:51 EST 25 mg Given 05/18/2013 17:51 EST 25 mg Given 05/18/2013 12:34 EST 25 mg ibuprofen (MOTRIN) tablet 600 mg 600 mg, oral, EVERY 6 HOURS PRN, Starting on Sat05/06/13 at 1551, Until Sat05/19/13 at 1518, Pain, Routine Given 05/19/2013 9:51 EST 600 mg Given 05/18/2013 8:30 EST 600 mg Given 05/17/2013 19:16 EST 600 mg insulin aspart (NOVOLOG FLEXPEN) injection subcutaneous, 3 TIMES DAILY WITH MEALS, First dose on Sat05/06/13 at 1700, Until Discontinued, Routine Given 05/19/2013 7:58 EST 2 Units Abdomina l Tissue Given 05/18/2013 17:31 EST 2 Units Given 05/18/2013 12:31 EST 2 Units lidocaine (LIDODERM) patch Removal topical (top), DAILY, First dose on Sat05/08/13 at 1000, Until Discontinued Given 05/19/2013 11:53 EST Given 05/18/2013 9:36 EST Given 05/17/2013 11:00 EST lidocaine 5 % (LIDODERM) patch 1 Patch 1 Patch, transdermal, Administer over 12 Hours, EVERY 24 HOURS, First dose on Sat05/07/13 at 0000, Until Discontinued, Routine Patch Applied 05/18/2013 21:04 EST 1 Patch Other Patch Applied 05/17/2013 21:56 EST 1 Patch L eft Quadriceps Patch Applied 05/16/2013 22:01 EST 1 Patch L eft Quadriceps metFORMIN (GLUCOPHAGE-XR) ER tablet 1,000 mg 1,000 mg, oral, DAILY WITH DINNER, First dose on 05/09/13 at 1700, Until Discontinued, Routine Given 05/10/2013 17:19 EST 1,000 mg Given 05/09/2013 17:31 EST 1,000 mg metFORMIN (GLUCOPHAGE-XR) ER tablet 2,000 mg 2,000 mg, oral, DAILY WITH DINNER, First dose (after last modification) on Sat05/11/13 at 1700, Until Discontinued, Routine Given 05/18/2013 17:29 EST 2,000 mg Given 05/17/2013 17:31 EST 2,000 mg Given 05/16/2013 18:11 EST 2,000 mg nicotine (NICOTROL) 10 mg inhaler 1 Inhaler 1 Inhaler, inhalation, EVERY 2 HOURS PRN, Starting on Sat05/06/13 at 1617, Until Sat05/19/13 at 1518, Smoking Cessation, Routine Given 05/08/2013 9:02 EST 1 Inhaler Given 05/07/2013 11:10 EST 1 Inhaler Given 05/06/2013 19:54 EST 1 Inhaler OXcarbazepine (TRILEPTAL) tablet 150 mg 150 mg, oral, 2 TIMES DAILY, 5 doses, First dose (after last modification) on Edwina 05/14/13 at 2100, Last dose on 05/16/13 at 2100, Routine Given 05/16/2013 22:00 EST 150 mg Given 05/16/2013 9:58 EST 150 mg Given 05/15/2013 20:26 EST 150 mg OXcarbazepine (TRILEPTAL) tablet 300 mg 300 mg, oral, 2 TIMES DAILY, First dose on Sat05/06/13 at 2100, Until Discontinued, Routine Given 05/14/2013 8:30 EST 300 mg Given 05/13/2013 20:59 EST 300 mg Given 05/13/2013 8:18 EST 300 mg QUEtiapine (SEROQUEL) tablet 150 mg 150 mg, oral, AT BEDTIME, First dose on Sat05/06/13 at 2100, Until Discontinued, Routine Given 05/09/2013 21:30 EST 15 0 mg Given 05/08/2013 21:49 EST 150 mg Given 05/07/2013 21:55 EST 150 mg QUEtiapine (SEROQUEL) tablet 200 mg 200 mg, oral, AT BEDTIME, First dose (after last modification) on Sat05/10/13 at 2100, Until Discontinued, Routine Given 05/10/2013 21:06 EST 200 mg QUEtiapine (SEROQUEL) tablet 200 mg 200 mg, oral, USER SPECIFIED (Daily), First dose on Sat05/11/13 at 1930, Until Discontinued, Routine Given 05/18/2013 21:04 EST 200 mg Given 05/17/2013 19:13 EST 200 mg Given 05/16/2013 19:50 EST 200 mg QUEtiapine (SEROQUEL) tablet 25 mg 25 mg, oral, NOW X1, 1 dose, On 05/16/13 at 1945, Routine Given 05/16/2013 19:51 EST 25 mg simvastatin (ZOCOR) tablet 20 mg 20 mg, oral, EVERY EVENING, First dose on Sat05/06/13 at 1700, Until Discontinued, Routine Given 05/18/2013 17:29 EST 20 mg Given 05/17/2013 17:31 EST 20 mg Given 05/16/2013 18:11 EST 20 mg traMADol (ULTRAM) tablet 100 mg 100 mg, oral, 3 TIMES DAILY, First dose (after last modification) on Sat05/08/13 at 2100, Until Discontinued, Routine Given 05/08/2013 21:47 EST 100 mg traMADol (ULTRAM) tablet 100 mg 100 mg, oral, USER SPECIFIED (3 times per day), First dose (after last modification) on Sat05/13/13 at 0800, Until Discontinued, Routine Given 05/19/2013 12:34 EST 1 00 mg Given 05/19/2013 8:00 EST 100 mg Given 05/18/2013 17:29 EST 100 mg traMADol (ULTRAM) tablet 50 mg 50 mg, oral, EVERY 8 HOURS PRN, Starting on 05/09/13 at 0732, Until Sat05/12/13 at 1713, Pain, Routine Given 05/12/2013 13:06 EST 50 mg Given 05/11/2013 21:17 EST 50 mg Given 05/11/2013 8:43 EST 50 mg traMADol (ULTRAM) tablet 50 mg 50 mg, oral, ONCE PRN, 1 dose, Starting on Sat05/12/13 at 2111, Until Sat05/12/13 at 2120, Pain, Routine Given 05/12/2013 21:20 EST 50 mg documented in this encounter Discontinued Medications Medication Sig Discontinue Reason Start Date End Da te DULoxetine (CYMBALTA) 30 mg capsule Take 2 Caps by mouth 2 times daily. 05/06/2013 05/19/2013 QUEtiapine (SEROQUEL) 100 mg tablet Take 150 mg by mouth at bedtime. 05/19/2013 OXcarbazepine (TRILEPTAL) 300 mg tablet Take 300 mg by mouth 2 times daily. 05/19/2013 hydrOXYzine (ATARAX) 25 mg tablet Take 1 Tab by mouth 3 times daily as needed for Itching. 09/24/2012 05/19/2013 traZODone (DESYREL) 100 mg tabletIndications:Chroni c pain syndrome Take 1.5 Tabs by mouth at bedtime. 08/12/2012 05/19/2013 documented as of this encounter Historical Medications * This list may reflect changes made after this encounter. Medication Sig Dispensed Refills Start Date End Date metFORMIN (GLUCOPHAGE-XR) 500 mg ER tabletIndications:type 2 diabetes mellitus Take 2,000 mg by mouth daily. Indications: TYPE 2 DIABETES MELLITUS 12/31/2013 added in this encounter Active and Recently Administered Medications Times are shown in EST. Scheduled Medication Order 05/17/2013 05/18/2013 05/19/2013 Cholecalciferol (Vitamin D3) tablet 400 Units 400 Units, oral, DAILY, First dose on Sat05/19/13 at 1000, Until Discontinued, Routine 1235 (Given - Provider: Sita Dobbins) cyclobenzaprine (FLEXERIL) tablet 10 mg (CANCELED) 10 mg, oral, 3 TIMES DAILY, First dose (after last modification) on Sat05/08/13 at 2100, Until Discontinued, Routine 0818 (Given - Provider: Sita Dobbins)1350 (Given - Provider: Sita Dobbins)215 (Given - Provider: Tangela Reyes) 0831 (Given - Provider: Haim Thompson RN)1359 (Given - Provider: Haim Thompson RN)210 (Given - Provider: Palak Lutz, PRISCILA) 0800 (Given - Provider: Sita Dobbins) dexmethylphenidate (FOCALIN XR) multiphase capsule capsule,ER multiphase 50-50 15 mg (CANCELED) 15 mg, oral, 2 TIMES DAILY BEFORE BREAKFAST & LUNCH, First dose (after last modification) on Sat05/11/13 at 0700, Until Discontinued, Routine 0748 (Given - Provider: Ni Pacheco RN)1159 (Given - Provider: Sita Dobbins) 0608 (Given - Provider: Guillermina Rivera)1124 (Given - Provider: Haim Thompson RN) 0638 (Given - Provider: Lilibeth Hankins RN)1234 (Given - Provider: Sita Dobbins) DULoxetine (CYMBALTA) capsule 30 mg (CANCELED) 30 mg, oral, DAILY, First dose on Sat05/16/13 at 0900, Until Discontinued, Routine 0819 (Given - Provider: Sita Dobbins) 0831 (Given - Provider: Haim Thompson RN) 0800 (Given - Provider: Sita Dobbins) DULoxetine (CYMBALTA) capsule 60 mg (CANCELED) 60 mg, oral, AT BEDTIME, First dose (after last modification) on Sat05/15/13 at 2100, Until Discontinued, Routine 215 (Given - Provider: Tangela Reyes) 210 (Given - Provider: Palak Lutz, PRISCILA) insulin aspart (NOVOLOG FLEXPEN) injection (CANCELED) subcutaneous, 3 TIMES DAILY WITH MEALS, First dose on Sat05/06/13 at 1700, Until Discontinued, Routine 0812 (Given - Provider: Sita Dobbins)1200 (Not Given - Provider: Sita Dobbins - Reason: Order parameters not met)1734 (Given - Provider: Tangela Reyes) 0832 (Not Given - Provider: Haim Thompson RN - Reason: Order parameters not met)1231 (Given - Provider: Haim Thompson RN)1731 (Given - Provider: Palak Lutz RN) 0758 (Given - Provider: Sita Dobbins)1238 (Not Given - Provider: Sita Dobbins - Reason: Order parameters not met) lidocaine (LIDODERM) patch Removal (CANCELED) topical (top), DAILY, First dose on Sat05/08/13 at 1000, Until Discontinued 1100 (Given - Provider: Sita Dobbins) 0936 (Given - Provider: Haim Thompson RN) 1153 (Given - Provider: Sita Dobbins) lidocaine 5 % (LIDODERM) patch 1 Patch (CANCELED) 1 Patch, transdermal, Administer over 12 Hours, EVERY 24 HOURS, First dose on Sat05/07/13 at 0000, Until Discontinued, Routine 1106 (Patch Removed - Provider: Sita Dobbins)2156 (Patch Applied - Provider: Tangela Reyes) 0937 (Patch Removed - Provider: Haim Thompson RN)2104 (Patch Applied - Provider: Palak Lutz, PRISCILA - Comment: leftlower back) 1153 (Patch Removed - Provider: Sita Dobbins) metFORMIN (GLUCOPHAGE-XR) ER tablet 2,000 mg (CANCELED) 2,000 mg, oral, DAILY WITH DINNER, First dose (after last modification) on Sat05/11/13 at 1700, Until Discontinued, Routine 1731 (Given - Provider: Tangela Reyes) 1729 (Given - Provider: Palak Lutz, PRISCILA) QUEtiapine (SEROQUEL) tablet 200 mg 200 mg, oral, USER SPECIFIED (Daily), First dose on Sat05/11/13 at 1930, Until Discontinued, Routine 1913 (Given - Provider: Tangela Reyes) 2104 (Given - Provider: Palak Lutz, PRISCILA) simvastatin (ZOCOR) tablet 20 mg (CANCELED) 20 mg, oral, EVERY EVENING, First dose on Sat05/06/13 at 1700, Until Discontinued, Routine 1731 (Given - Provider: Tangela Reyes) 1729 (Given - Provider: aPlak Lutz, PRISCILA) traMADol (ULTRAM) tablet 100 mg (CANCELED) 100 mg, oral, USER SPECIFIED (3 times per day), First dose (after last modification) on Sat05/13/13 at 0800, Until Discontinued, Routine 0819 (Given - Provider: Sita Dobbins)1200 (Given - Provider: Sita Dobbins)1732 (Given - Provider: Tangela Reyes) 0831 (Given - Provider: Haim Thompson, PRISCILA)1234 (Given - Provider: Haim Thompson, PRISCILA)1729 (Given - Provider: Palak Lutz RN) 0800 (Given - Provider: Sita Dobbins)1234 (Given - Provider: Sita Dobbins) PRN Medication Order 05/17/2013 05/18/2013 05/19/2013 acetaminophen (TYLENOL) tablet 1,000 mg (CANCELED) 1,000 mg, oral, EVERY 4 HOURS PRN, Starting on Sat05/06/13 at 1549, Until Sat05/19/13 at 1518, Pain, Routine 2155 (Given - Provider: Tangela Reyes) hydrOXYzine (ATARAX) tablet 25 mg (CANCELED) 25 mg, oral, 3 TIMES DAILY PRN, Starting on Edwina 05/14/13 at 1701, Until Sat05/19/13 at 1518, Anxiety, Routine 1350 (Given - Provider: Sita Dobbins)1916 (Given - Provider: Tangela Reyes) 1234 (Given - Provider: Haim Thompson, PRISCILA)1751 (Given - Provider: Palak Lutz, PRISCILA) 0951 (Given - Provider: Sita Dobbins) ibuprofen (MOTRIN) tablet 600 mg (CANCELED) 600 mg, oral, EVERY 6 HOURS PRN, Starting on Sat05/06/13 at 1551, Until Sat05/19/13 at 1518, Pain, Routine 0819 (Given - Provider: Sita Dobbins)1916 (Given - Provider: Tangela Reyes) 0830 (Given - Provider: Haim Thompson RN) 0951 (Given - Provider: Sita Dobbins) documented in this encounter Orders Medications Ordered That Russel ht Not Have Been Administered Count Last Ordered Date First Ordered Date DULoxetine (CYMBALTA) capsule 30 mg 1 05/19 flumazenil (ROMAZICON) 0.1 mg/mL injection 1 05/18/2013 QUEtiapine (SEROQUEL) tablet 200 mg 1 05/11 traMADol (ULTRAM) tablet 100 mg 2 4 05/08/2013 albuterol (VENTOLIN HFA) inhaler 2 Puff 2 0 05/06/2013 dextrose 50 % solution 12.5 g 1 05/06/2013 enoxaparin (LOVENOX) injection 40 mg 1 11/2013 glucagon (human recombinant) injection 1 mg 1 05/06/2013 hydrOXYzine (ATARAX) tablet 25 mg 1 014 methylphenidate (RITALIN;MET HYLIN) tablet 5 mg 1 05/06/2013 nicotine inhaler (delivery device) 1 2013 Nursing Count Last Ordered Date First Orde red Date NURSING COMMUNICATION 1 05/06/2013 PT Count Last Ordered Date First Orde red Date PT EVALUATION AND TREAT 1 05/06/2013 Admission Count Last Ordered Date First Orde red Date STATUS: INPATIENT ACUTE ADMISSION 1 014 Transfer Count Last Ordered Date First Orde red Date NOTIFY PPS OF DISCHARGE COMPLETE 1 05/19/19 14 NOTIFY PPS OF ROOM CHANGE COMPLETE 1 2013 Discharge Count Last Ordered Date First Orde red Date DISCHARGE PATIENT 1 05/19/2013 documented in this encounter Care Teams Content Strategy Lead Relationship Specialty Start Date End Date Annette Sidhu, HEAD LOADER [address] [place] [phone] PCP - General 03/19/13 07/06/19 documented as of this encounter
--- OUTSIDE RECORDS SUMMARY | 2024-02-14 15:23 | XMS_ITS | Encounter Summary ---
Author Organization [facility] Address [address] [place] [address] Care Team Providers Care Underwriting Operations Manager Name Role Phone Annette Sidhu APRN Primary Care Provider [phone] Reason for Referral * VASCULAR MANAGER (Routine) - Closed Specialty Diagnoses / Procedures Referred By Contac t Referred To Contact Diagnoses Previous delivery, antepartum condition or complication Supervision of high-risk of elderly multigravida Type II or unspecified type diabetes mellitus without mention of complication, not stated as uncontrolled Procedures FPC DETAILED Khalida Quiñones MD Referral ID Status Reason Start Date Expiration Date Visits Re quested Visits Authorized [id number] Closed 12/11/2013 1 1 Reason for Visit * Reason Comments Initial Visit Boyfriend tested positive for chlymidia wants to be retested Encounter Details Date Type Department Care Team (Late st Contact Info) Description 12/11/2013 9:[address] [facility] Obstetrics & Midwifery - [address] [id number] Khalida Quiñones MD GA: 14w4d Social History Tobacco Use Types Packs/Day Years [...] Sign Reading Time Taken Comments Blood Pressure 128/72 12/11/2013 0929 EDT Pulse - - Temperature - - Respiratory Rate - - Oxygen Saturation - - Inhaled Oxygen Concentration - - Weight 81.2 kg (179 lb) 12/11/2013 09 EDT Height 159 cm (5' 2.6) 12/11/2013 0929 EDT Body Mass Index 32.12 12/11/2013 0929 EDT documented in this encounter Functional Status Cognitive Status Response Date of Assessm ent Because of a physical, menta l, or emotional condition, do you have serious difficulty concentrating, remembering, or making decisions? (5 years old or older) Yes 05/06/2013 documented as of this encounter Ordered Prescriptions Prescription Sig Dispensed Refills Start Date End Da te azithromycin (ZITHROMAX) 500 mg tablet 1000 mg - 1 dose-. 2 Tab 0 12/11/2013 12/25/2013 documented in this encounter Progress Notes * Khalida Quiñones MD - 12/11/2013 1100 EDT Initial Subjective: Guzman Jean is a 38 y.o. female at 14w4d who presents for her care. Current Estimated Date of Delivery: 06/07/14 based on Last Menstrual Period and Ultrasound. Symptoms since LMP: Patient reports no complaints Problems: 1. PROBLEM 1. Intrauterine . The patient had an early ultrasound, which confirmed her EDC.Initial labs were all within normal limits. She was seen through [facility] and then referred here at approximately 14 weeks. See problem list for specifics. PROBLEM 2. Advanced maternal age. The patient will be 38 at the time of delivery. We discussed age related issues of trisomy and offered [place] versus other screening tests and/or direct past such as amniocentesis. PROBLEM 3. x2. The patient had her last here. I do not have the operative report for review. She mentioned that she may wish to consider . PROBLEM 4. Diabetes. The patient has type 2 diabetes that started at 20 years old. She was mainly controlled on oral medication. She did, however, require insulin during her last . PROBLEM 5. Psyche history. The patient has a long history of depression and anxiety. In April of this year, after a breakup with her boyfriend, she attempted suicide with an overdose of insulin. She was in unit for several days and then in psyche for several weeks. She states that she is now in agood place, very stable. She follows with Dr Angel. She has attempted to wean down her medications and is now on stable doses and will continue these medications. PROBLEM 6. Hip and back pain. She had surgery on her lower back. This is for a herniated L4-L5, this is currently controlled with Flexeril and Tylenol. 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 He is very supportive. She smokes half pack a day, this is down somewhat. She gets no exercise other than her work. Boyfriend with nataliyaymcheng - treat pt with Azithromycin and get test of cure in 6 wks. No Known Allergies Past obstetric history reviewed and complications noted in table. Significant OB History: Previous C/S Past Medical History Diagnosis Date ??? Type 2 diabetes mellitus without (mention of) complications 02/15/2005 ??? Routine general medical examination at [facility] care facility 02/15/2005 ??? Polycystic ovaries 01/21/2008 [...] 1998,2007 times 2 ??? Hip arthroscopy 2013 Past CREDIT UNION EXAMINER History reviewed in Chart. Social History Main Topics ??? Smoking status: Smoker, Current Status Unknown -- 0.50 packs/day for 3 years Types: Cigarettes ??? Smokeless tobacco: Never Used ??? Alcohol Use: No ??? Drug Use: No ??? Sexually Active: Yes Living Situation: not with FOB- new boyfriend- very supportive- living together. STATE FARM AGENT- L+D Review of Systems: Pertinent items are noted in Subjective/HPI Objective: Filed Vitals: 12/11/13 0929 BP: 128/72 Height: 159 cm (62.6) Weight: 81.194 kg (179 lb) Body mass index is 32.12 kg/(m^2). pelvic deferred- will need GC/C in 6 wks Assessment: 1. IUP at 14w4d: multiple problem - see below 2. Estimated Date of Delivery: 06/07/14 based on Last Menstrual Period and Ultrasound. Plan: 1. Problem list reviewed and updated. Back pain complicating Surgery L4L5- herniated disc- Dr. Betina Verde and occasional tylenol for control Depression complicating , antepartum Previous suicide attempt 04/[address] Colbert Multiple meds - dexmethyphenidate , Gabapentin, seroquel Seen q 2 wk. Stable at this time Previous delivery, antepartum condition or complication May want - need to get last C/S report Discuss after 28 wks. Rh negative state in antepartum period Screen at 28 wks Supervision of high-risk of elderly multigravida G/C: partner positive for chlymidia - tx 12/11 - test of cure AMA- wants harmony- ordered Smoking - /2 ppd- encouraged further decrease STATE FARM AGENT - nights on L+D FOB- not involved- new boyfriend- very supportinve Type II or unspecified type diabetes mellitus without mention of complication, not stated as uncontrolled 24 hr protein ordered Refer to endocrine- Metformin currently - will start testing 4 x /day May need to go on insulin - Has a plan to keep safe- supplies will be kept locked by boyfriend. 3. Follow-up in 2 weeks 5. 30 min of 40 min visit spent on counseling and coordination of care. Khalida Quiñones MD documented in this encounter Miscellaneous Notes * Assessment & Plan Note - Khalida Quiñones MD - 12/11/2013 1112 EDTAssociated Problem(s): Diabetes mellitus in , antepartum 24 hr protein ordered Refer to endocrine- Metformin currently - will start testing 4 x /day May need to go on insulin - Has a plan to keep safe- supplies will be kept locked by boyfriend. 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 * Assessment & Plan Note - Khalida Quiñones MD - 12/11/2013 1051 EDTAssociated Problem(s): Depression complicating , antepartum Previous suicide attempt 04/[address] Colbert Multiple meds - dexmethyphenidate , Gabapentin, seroquel Seen q 2 wk. Stable at this time * Assessment & Plan Note - Khalida Quiñones MD - 12/11/2013 1051 EDTAssociated Problem(s): Back pain complicating Surgery L4L5- herniated disc- Dr. Betina Verde and occasional tylenol for control documented in this encounter Plan of Treatment Not on file documented as of this encounter Goals Goal Patient Goal Type Associated Problems Recent Progress Patient-Stated? Author HEMOGLOBIN A1C < 7.0 Result Component Type 2 diabetes mellitus ([facility]) 8.7(07/07/2015 5:05 EST) No Annmarie Vigil documented as of this encounter Procedures Procedure Name Priority Date/Time Associated Diagnosis Comments FPC DETAILED Routine 01/18/2014 11:49 EDT Previous delivery, antepartum condition or complication Supervision of high-risk of elderly multigravida Type II or unspecified type diabetes mellitus without mention of complication, not stated as uncontrolled PATHOLOGY - SCANNED 12/23/2013 15:40 EDT documented in this encounter Results * FPC DETAILED (01/18/2014 11:49 EDT) Anatomical Region Laterality Modality Other 01/18/2014 11:4 9 EDT 01/18/2014 12:43 EDT Narrative 01/18/2014 12:43 EDT Indication: Maternal disease: Diabetes, pregestational type 2. Maternal age (38 years). BMI 32. History: Age: 38 years. Maternal age at EDC: 38 years. : 4 Para: 2. Previous pregnancies: Children born at term: 2. Abortions: 1. Living children: 2. Current : Pre- data: Weight 178 lbs. Height 5 ft 3 ins. BMI 32.0. Obstetric History: Mode of last delivery: Section. Dating: LMP: 08/31/2013 EDC: 06/07/2014 GA by LMP: 20w0d Current Scan on: 01/18/2014 EDC: 06/07/2014 GA by current scan: 20w0d Best Overall Assessment: 10/20/2013 EDC: 06/07/2014 Assessed GA: 20w0d The calculation of the gestational age by current scan was based on BPD, HC, TCD, AC, FL and HUM. The Best Overall Assessment is based on the LMP. General Evaluation: heart activity: Present. heart rate: 168 bpm. Presentation: transverse, Head on maternal left. movement: visible. Amniotic Fluid: Normal. Cord: 3 Vessels. Placental cord insertion site: Marginal insertion. cord insertion site: Normal. Placenta: Anterior. Placenta Grade: Grade 2. Structure: Lakes: 10% of placental mass. Anatomy Scan: Garcia gestation. Biometry: BPD 44.9 mm 32nd% 19w4d (19w0d to 20w1d) HC 170.5 mm 26th% 19w5d (18w1d to 21w1d) AC 151.7 mm 58th% 20w3d (19w5d to 21w1d) FL 31.8 mm 38th% 19w6d (18w1d to 21w5d) OFD 61.8 mm 69th% 20w2d TCD 20.6 mm 57th% 20w1d HUM 31.2 mm 65th% 20w3d RAD 25.8 mm 35th% 19w4d ULN 28.8 mm 47th% 20w0d TIB 27.9 mm 60th% 20w2d FIB 29.0 mm 58th% 20w2d Foot 28.1 mm n/a 18w3d VENTRp 6.4 mm n/a CM 4.2 mm 24th% NUCHAL FOLD 3.58 mm NASAL BONE 6.2 mm n/a HC/AC Ratio 1.124 ??21st% FL/AC Ratio 0.210 ??28th% BPD/FL Ratio 1.412 ??9th% BPD/OFD Ratio 0.727 ??<5th% EFW (lbs/oz) 0 lbs 12 ozs EFW (g) 332 g ??n/a Anatomy: Head: head shape appears normal. Brain: Cerebellum, choroid plexus, cisterna magna, lateral cerebral ventricles, midline falx and cavum septi pellucidi appear normal. Face: eyes normal, profile normal, nose normal, lip normal, palate is not imaged but the maxilla appears normal. Spine: Cervical, thoracic, lumbar and sacral spine appear normal Neck / Skin: No neck masses seen. Thorax: No thoracic abnormalities detected. Heart: Visualized and normal appearance: four-chamber view, left outflow tract, Aortic arch, inferior vena cava, superior vena cava. Cardiac axis: normal. Right outflow tract: Appears normal, but the views are suboptimal. Aortic arch: Normal. Abdominal Wall: Normal cord insertion into the abdominal wall is seen. Gastrointestinal Tract: Stomach appears normal. Kidneys / Adrenal Glands: Bilateral kidneys appear normal. Bladder: bladder appears normal in size and shape. Genitalia: Female fetus. Extremities: Both upper and lower extremities are seen and appear normal. Skeleton: No evidence of skeletal abnormality detected. Summary of Ultrasound Findings: Transabdominal US. U/S machine: [employer] e8. U/S view: good. Genetic Sonogram: measured FL: 31.8 mm exp. FL: 31.2 mm measured HUM: 31.2 mm exp. HUM: 30.2 mm ratio FL/exp.FL: 1.02 ratio HUM/exp.HUM: 1.03 Nuchal fold normal. Pyelectasis absent. No hyperechogenic bowel. Echogenic intracardiac focus absent. Additional Marker: Nasal bone length: normal. Maternal Structures: Uterus: normal. Cervix: normal. Right Ovary: normal. Right Ovary size: 19 mm x 20 mm x 14 mm. Volume: 2.8 ml. Left Ovary: normal. Left Ovary size: 28 mm x 22 mm x 16 mm. Volume: 5.2 ml. Cul de Sac / Pouch of Jaquan: no free fluid visible. Report Summary: Impression: [id number] Obstetrical ultrasound with and maternal evaluation, including detailed anatomic examination This is a garcia gestation. Biometry is consistent with menstrual dating. A marginal cord insertion is noted. ?? The placenta has multiple hypoechoic areas, consistent with multiple large lakes, which includes 10-15% of the the placental area. These areas are at the fundal portion of the placenta, and the placenta itself is well-superior to the scar. Anatomy appears normal as noted above; however, ultrasound cannot detect all anomalies. As per the SM guidelines, the following were evaluated and were normal: the cerebellum (including lobes and vermis), facial profile, the chest (including examination for masses, effusion, integrity of both sides of the diaphragm and lung parenchyma), abdomen for ascites, 12-long bones with normal architecture/position of limbs, hands and feet, placental insertion site of the umbilical cord and placenta for masses. The amniotic fluid volume is normal. There is trunk and extremity movement noted. Her risk for Down syndrome is reduced by about 50%. Recommendations: Recommned third trimester assessments of growth due to marginal cord insertion and multiple placental lakes. ?? Recommend a ECHO for maternal diabetes, given suboptimal views of RVOT. This follow-up has not been scheduled. Growth Overview: Date GA BPD [mm] HC [mm] AC [mm] FL [mm] HUM [mm] EFW GP 10/20/2013 7 + 1 ... ... ... ... ... ... ... 01/18/2014 20 + 0 44.9 32nd 170.5 26th 151.7 58th 31.8 38th 31.2 65th 332g , 0 lbs 12 ozs n/a% Procedure Note 01/18/2014 Indication: Maternal disease: Diabetes, pregestational type 2. Maternal age (38 years). BMI 32. History: Age: 38 years. Maternal age at EDC: 38 years. : 4 Para: 2. Previous pregnancies: Children born at term: 2. Abortions: 1. Living children: 2. Current : Pre- data: Weight 178 lbs. Height 5 ft 3 ins. BMI 32.0. Obstetric History: Mode of last delivery: Section. Dating: LMP: 08/31/2013 EDC: 06/07/2014 GA by LMP: 20w0d Current Scan on: 01/18/2014 EDC: 06/07/2014 GA by current scan: 20w0d Best Overall Assessment: 10/20/2013 EDC: 06/07/2014 Assessed GA: 20w0d The calculation of the gestational age by current scan was based on BPD, HC, TCD, AC, FL and HUM. The Best Overall Assessment is based on the LMP. General Evaluation: heart activity: Present. heart rate: 168 bpm. Presentation: transverse, Head on maternal left. movement: visible. Amniotic Fluid: Normal. Cord: 3 Vessels. Placental cord insertion site: Marginal insertion. cord insertion site: Normal. Placenta: Anterior. Placenta Grade: Grade 2. Structure: Lakes: 10% of placental mass. Anatomy Scan: Garcia gestation. Biometry: BPD 44.9 mm 32nd% 19w4d (19w0d to 20w1d) HC 170.5 mm 26th% 19w5d (18w1d to 21w1d) AC 151.7 mm 58th% 20w3d (19w5d to 21w1d) FL 31.8 mm 38th% 19w6d (18w1d to 21w5d) OFD 61.8 mm 69th% 20w2d TCD 20.6 mm 57th% 20w1d HUM 31.2 mm 65th% 20w3d RAD 25.8 mm 35th% 19w4d ULN 28.8 mm 47th% 20w0d TIB 27.9 mm 60th% 20w2d FIB 29.0 mm 58th% 20w2d Foot 28.1 mm n/a 18w3d VENTRp 6.4 mm n/a CM 4.2 mm 24th% NUCHAL FOLD 3.58 mm NASAL BONE 6.2 mm n/a HC/AC Ratio 1.124 21st% FL/AC Ratio 0.210 28th% BPD/FL Ratio 1.412 9th% BPD/OFD Ratio 0.727 <5th% EFW (lbs/oz) 0 lbs 12 ozs EFW (g) 332 g n/a Anatomy: Head: head shape appears normal. Brain: Cerebellum, choroid plexus, cisterna magna, lateral cerebral ventricles, midline falx and cavum septi pellucidi appear normal. Face: eyes normal, profile normal, nose normal, lip normal, palate is not imaged but the maxilla appears normal. Spine: Cervical, thoracic, lumbar and sacral spine appear normal Neck / Skin: No neck masses seen. Thorax: No thoracic abnormalities detected. Heart: Visualized and normal appearance: four-chamber view, left outflow tract, Aortic arch, inferior vena cava, superior vena cava. Cardiac axis: normal. Right outflow tract: Appears normal, but the views are suboptimal. Aortic arch: Normal. Abdominal Wall: Normal cord insertion into the abdominal wall is seen. Gastrointestinal Tract: Stomach appears normal. Kidneys / Adrenal Glands: Bilateral kidneys appear normal. Bladder: bladder appears normal in size and shape. Genitalia: Female fetus. Extremities: Both upper and lower extremities are seen and appear normal. Skeleton: No evidence of skeletal abnormality detected. Summary of Ultrasound Findings: Transabdominal US. U/S machine: [employer] e8. U/S view: good. Genetic Sonogram: measured FL: 31.8 mm exp. FL: 31.2 mm measured HUM: 31.2 mm exp. HUM: 30.2 mm ratio FL/exp.FL: 1.02 ratio HUM/exp.HUM: 1.03 Nuchal fold normal. Pyelectasis absent. No hyperechogenic bowel. Echogenic intracardiac focus absent. Additional Marker: Nasal bone length: normal. Maternal Structures: Uterus: normal. Cervix: normal. Right Ovary: normal. Right Ovary size: 19 mm x 20 mm x 14 mm. Volume: 2.8 ml. Left Ovary: normal. Left Ovary size: 28 mm x 22 mm x 16 mm. Volume: 5.2 ml. Cul de Sac / Pouch of Jaquan: no free fluid visible. Report Summary: Impression: [id number] Obstetrical ultrasound with and maternal evaluation, including detailed anatomic examination This is a garcia gestation. Biometry is consistent with menstrual dating. A marginal cord insertion is noted. The placenta has multiple hypoechoic areas, consistent with multiple large lakes, which includes 10-15% of the the placental area. These areas are at the fundal portion of the placenta, and the placenta itself is well-superior to the scar. Anatomy appears normal as noted above; however, ultrasound cannot detect all anomalies. As per the SMFM guidelines, the following were evaluated and were normal: the cerebellum (including lobes and vermis), facial profile, the chest (including examination for masses, effusion, integrity of both sides of the diaphragm and lung parenchyma), abdomen for ascites, 12-long bones with normal architecture/position of limbs, hands and feet, placental insertion site of the umbilical cord and placenta for masses. The amniotic fluid volume is normal. There is trunk and extremity movement noted. Her risk for Down syndrome is reduced by about 50%. Recommendations: Recommned third trimester assessments of growth due to marginal cord insertion and multiple placental lakes. Recommend a ECHO for maternal diabetes, given suboptimal views of RVOT. This follow-up has not been scheduled. Growth Overview: Date GA BPD [mm] HC [mm] AC [mm] FL [mm] HUM [mm] EFW GP 10/20/2013 7 + 1 ... ... ... ... ... ... ... 01/18/2014 20 + 0 44.9 32nd 170.5 26th 151.7 58th 31.8 38th 31.2 65th 332g , 0 lbs 12 ozs n/a% Khalida Quiñones MD [facility] ORDERABLE S * PATHOLOGY - SCANNED (12/23/2013 15:40 EDT) 12/23/2013 15:4 0 EDT Scan 2 [employer] Radio Operator LAB INFO SERVICE AN D SUPPORT & PHONE RESULT documented in this encounter Visit Diagnoses Diagnosis Previous delivery, antepartum condition or complication- Primary Supervision of high-risk of elderly multigravida Type II or unspecified type diabetes mellitus without mention of complication, not stated as uncontrolled documented in this encounter Care Teams Underwriting Operations Manager Relationship Specialty Start Date End Date Annette Sidhu APRN [address] [place] [phone] PCP - General 03/19/13 07/06/19 documented as of this encounter
--- OUTSIDE RECORDS SUMMARY | 2024-02-14 15:23 | XMS_ITS | Encounter Summary ---
Author Organization [facility] Address [address] [place] [address] Care Team Providers Care Desulphuring Operator Name Role Phone Annette Sidhu APRN Primary Care Provider [phone] Encounter Details Date Type Department Care Team ([facility] st Contact Info) Description 11/16/2013 Abstract [facility] Nurse Midwifery Program - [place] [address] [place] [address] Annalee Rondon LPN Social History Tobacco Use Types Packs/Day Years [...] mellitus ([facility]) 8.7(07/07/2015 5:05 EST) No Annmarie Vigil documented as of this encounter Visit Diagnoses Not on filedocumented in this encounter Care Teams Desulphuring Operator Relationship Specialty Start Date End Date Annette Sidhu APRN [address] [place] [phone] PCP - General 03/19/13 07/06/19 documented as of this encounter
--- OUTSIDE RECORDS SUMMARY | 2024-02-14 15:23 | XMS_ITS | Encounter Summary ---
Author Organization [facility] Address [address] [place] [address] Care Team Providers Care Head Insulation Board Saw Operator Name Role Phone Annette Sidhu APRN Primary Care Provider [phone] Encounter Details Date Type Department Care Team ([facility] st Contact Info) Description 12/11/2013 Phlebotomy Only [address] [address] Costume Technician, Outpatient Social History Tobacco Use Types Packs/Day Years [...] 2 diabetes mellitus ([facility]) 8.7(07/07/2015 5:05 EST) No Annmarie Vigil documented as of this encounter Visit Diagnoses Not on filedocumented in this encounter Care Teams Head Insulation Board Saw Operator Relationship Specialty Start Date End Date Annette Sidhu APRN [address] [place] [phone] PCP - General 03/19/13 07/06/19 documented as of this encounter
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
--- OUTSIDE RECORDS SUMMARY | 2024-02-14 15:23 | XMS_ITS | Encounter Summary ---
Author Organization [facility] Address [address] [place] [address] Care Team Providers Care Executive Chef Assistant Name Role Phone Annette Sidhu APRN Primary Care Provider Reason for Visit * Reason Comments Routine Visit Back Pain upper middle Encounter Details Date Type Department Care Team (Late st Contact Info) Description 12/25/2013 10:[address] [facility] Obstetrics & Midwifery - [facility] [address] [place] [address] Eduardo Friend MD [address] [place] [phone] [place]: 16w4d Social History Tobacco Use Types Packs/Day Years [...] Sign Reading Time Taken Comments Blood Pressure 126/62 12/25/2013 1000 EDT Pulse - - Temperature - - Respiratory Rate - - Oxygen Saturation - - Inhaled Oxygen Concentration - - Weight 79 kg (174 lb 3.2 oz) 12/25/2013 1000 EDT Height 159 cm (5' 2.6) 12/25/2013 1000 EDT Body Mass Index 31.26 12/25/2013 1000 EDT documented in this encounter Functional Status Cognitive Status Response Date of Assessm ent Because of a physical, menta l, or emotional condition, do you have serious difficulty concentrating, remembering, or making decisions? (5 years old or older) Yes 05/06/2013 documented as of this encounter Progress Notes * Brandon Quigley MD - 12/31/2013 1422 EDT MFMS Attending I saw the pt with Dr. Palacios . I agree with the findings and plan of management. The pt had no further questions concerning his care plan. BRANDON QUIGLEY MD * Eduardo Friend MD - 12/25/2013 1105 EDT Subjective Guzman Jean is a 38 y.o. at 16w4d here for a routine visit. Additional Notes: N/A Movement:None Contractions / Labor:None Vaginal Bleeding: None Leakage of Fluid: None Objective Vitals: BP: 126/62 mmHg Height: 159 cm (62.6) Weight : 79.017 kg (174 lb 3.2 oz) BMI: 31.321 Heart Rate: 160 Movement: N/A Assessment 38 y.o. at 16w4d with Type 2 DM and AMA here for a routine visit. Plan Supervision of high-risk of elderly multigravida The patient is scheduled for her Detailed ultrasound at 20 weeks. [place]ike results - not at increased risk for T21, 18, or 13. The fetus is a female. Type II or unspecified type diabetes mellitus without mention of complication, not stated as uncontrolled The patient did not bring her blood glucose log today. She admits that her blood glucose has been less than 100 mg/dL fasting. Her 2-hour postprandial blood glucose has been less than 180 mg/dL. The patient is currently taking Metformin 1000mg twice a day. The patient was reminded to complete her 24-hour urine collection. Dr. Quigley and I discussed the importance of bringing her blood glucose log to clinic. We also discussed monitoring her blood glucose over this weekend and recording her meals. She will give us thereadings on Saturday. At that point, we will will discuss the results with Endocrinology forrecommendations. The patient is scheduled to follow-up in the next combined MFM/Endo clinic January 04. Discussed the signs and symptoms of pre-/term labor and when to call the office. Follow-up in 2 week(s). Seen with Dr. Quigley.. Eduardo Friend MD documented in this encounter Miscellaneous Notes * Assessment & Plan Note - Eduardo Friend MD - 12/25/2013 1104 EDTAssociated Problem(s): Diabetes mellitus in , antepartum The patient did not bring her blood glucose log today. She admits that her blood glucose has been less than 100 mg /dL fasting. Her 2-hour postprandial blood glucose has been less than 180 mg/dL. Thepatient is currently taking Metformin 1000mg twice a day. The patient was reminded to complete her 24-hour urine collection. Dr. Quigley and I discussed the importance of bringing her blood glucose log to clinic. We also discussed monitoring her blood glucose over this weekend and give us the readings on Saturday morning. At that point well will discuss the results with Endocrinology for recommendations. The patient was scheduled to follow-up in the next combined MFM/Endo clinic January 04. * Assessment & Plan Note - Eduardo Friend MD - 12/25/2013 1100 EDTAssociated Problem(s): Supervision of high-risk of elderly multigravida (Resolved 06/23/2014) The patient is scheduled for her Detailed ultrasound at 20 weeks. documented in this encounter Plan of Treatment Not on file documented as of this encounter Goals Goal Patient Goal Type Associated Problems Recent Progress Patient-Stated? Author HEMOGLOBIN A1C < 7.0 Result Component Type 2 diabetes mellitus ([facility]) 8.7(07/07/2015 5:05 EST) No Annmarie Vigil documented as of this encounter Visit Diagnoses Diagnosis Supervision of high-risk of elderly multigravida- Primary Type II or unspecified type diabetes mellitus without mention of complication, not stated as uncontrolled Previous delivery, antepartum condition or complication Depression complicating , antepartum Mental disorders of mother, antepartum documented in this encounter Discontinued Medications Medication Sig Discontinue Reason Start Date End Da te azithromycin (ZITHROMAX) 500 mg tablet 1000 mg - 1 dose-. 12/11/2013 12/25/2013 DULoxetine (CYMBALTA) 30 mg capsuleIndications:devin or depressive disorder Take 1 Cap by mouth 2 times daily. Indications: MAJOR DEPRESSIVE DISORDER 05/19/2013 12/25/2013 documented as of this encounter Historical Medications * This list may reflect changes made after this encounter. Medication Sig Dispensed Refills Start Date End Date GABAPENTIN (NEURONTIN ORAL) Take 1,200 mg by mouth daily. added in this encounter Care Teams Executive Chef Assistant Relationship Specialty Start Date End Date Annette Sidhu APRN [address] [place] [phone] PCP - General 03/19/13 07/06/19 documented as of this encounter
--- OUTSIDE RECORDS SUMMARY | 2024-02-14 15:23 | XMS_ITS | Encounter Summary ---
Author Organization Health system Address [address] [place] [address] Care Team Providers Care Final Application Reviewer Name Role Phone SidhuErnst puckettjayant Kay APRN Primary Care Provider [phone] Reason for Visit * Reason Onset Date Comments Suicidal Ideation 12/31/2013 Encounter Details Date Type Department Care Team (Late st Contact Info) Description 12/31/2013 Telephone [facility] Obstetrics & [place] [address] Eduardo Friend MD [address] [place] [address] [place] [phone] Suicidal Ideation Social History Tobacco Use Types Packs/Day Years [...] encounter Miscellaneous Notes * Telephone Encounter - Eduardo Friend MD - 01/02/2014 0011 EDT Please refer to Michelle Devine RN note documented in this encounter Plan of Treatment Not on file documented as of this encounter Goals Goal Patient Goal Type Associated Problems Recent Progress Patient-Stated? Author HEMOGLOBIN A1C < 7.0 Result Component Type 2 diabetes mellitus ([facility]) 8.7(07/07/2015 5:05 EST) Annmarie Lopez documented as of this encounter Visit Diagnoses Not on filedocumented in this encounter Care Teams Final Application Reviewer Relationship Specialty Start Date End Date Annette Sidhu, INDUSTRIAL ILLUMINATING ENGINEER [address] [place] [phone] PCP - General 03/19/13 07/06/19 documented as of this encounter
--- OUTSIDE RECORDS SUMMARY | 2024-02-14 15:23 | XMS_ITS | Encounter Summary ---
Author Organization [facility] Address [address] [place] [address] Care Team Providers Care Copy Messenger Name Role Phone Annette Sidhu APRN Primary Care Provider [phone] Encounter Details Date Type Department Care Team (Late st Contact Info) Description 12/22/2013 Documentation Visit [facility] Obstetrics & [place] [address] Khalida Quiñones MD Social History Tobacco Use Types Packs/Day Years [...] of this encounter Progress Notes * Wanda Tran - 12/22/2013 0857 EDT Low Risk [place] results received on 12.21.13. Female Fetus - patient may not want to know gender. Copy given to nurse to inform patient of these results. Kallie Tran documented in this encounter Plan of Treatment Not on file documented as of this encounter Goals Goal Patient Goal Type Associated Problems Recent Progress Patient-Stated? Author HEMOGLOBIN A1C < 7.0 Result Component Type 2 diabetes mellitus ([facility]) 8.7(07/07/2015 5:05 EST) Annmarie Lopez documented as of this encounter Visit Diagnoses Not on filedocumented in this encounter Care Teams Copy Messenger Relationship Specialty Start Date End Date Annette Sidhu APRN [address] [place] [phone] PCP - General 03/19/13 07/06/19 documented as of this encounter
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
--- OUTSIDE RECORDS SUMMARY | 2024-02-14 15:23 | XMS_ITS | Encounter Summary ---
Author Organization [facility] Address [address] [place] [address] Care Team Providers Care Prison Guard Name Role Phone Annette Sidhu APRN Primary Care Provider [phone] Reason for Visit * Reason Onset Date Comments Ultrasound 10/20/2013 Encounter Details Date Type Department Care Team (Late st Contact Info) Description 10/20/2013 Telephone [facility] OBGYN Services - [facility] [address] [place] [address] Yoana Das, RN [address] [place] [address] Ultrasound Social History Tobacco Use Types Packs/Day Years [...] encounter Miscellaneous Notes * Telephone Encounter - Yoana Das, RN - 10/20/2013 [address] Tapia requesting an ultrasound be performed here. One, possibly 2 yolk sacs were seen in the uterus, but no pole was identified. Ultrasounds done 11 days apart showed the samemeasurements. LMP was 08/29/13. HCG on 10/06/13 was 1274. HCG is pending for today. Dr. Tapia stated that she would like to rule out Ectopic. Blood Type is A neg. Pt is a Type 1 Diabetic, poorly controlled and not taking insulin at this time. Ultrasound scheduled for 1:45 pm today. Pt to be notified by their office. documented in this encounter Plan of Treatment Not on file documented as of this encounter Goals Goal Patient Goal Type Associated Problems Recent Progress Patient-Stated? Author HEMOGLOBIN A1C < 7.0 Result Component Type 2 diabetes mellitus ([facility]) 8.7(07/07/2015 5:05 EST) Annmarie Lopez documented as of this encounter Visit Diagnoses Not on filedocumented in this encounter Care Teams Prison Guard Relationship Specialty Start Date End Date Annette Sidhu APRN [address] [place] [phone] PCP - General 03/19/13 07/06/19 documented as of this encounter
--- OUTSIDE RECORDS SUMMARY | 2024-02-14 15:23 | XMS_ITS | Encounter Summary ---
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 not have access to this. She has been without her prescribed meds for 3 days, as her recent boyfriend evicted her without these. Assessment: Client describes a chaotic life with many conflictive and ill-advised relationships. Client appearsto have poor decision-making skills. She is ambivalent about her , stating that she fears losing custody to her ex, but also considers trying to abort it, herself. Client has a hx of impulsive self-harm via insulin OD during other interpersonal conflicts. Although she does not have access to insulin, she is at some risk to self-harm, as this pattern has been established. Client is not interested in I/P admit to [facility] psych unit because she feels she was treated poorly there during her admission in 05/12. She states that [facility] helped her in the past. However, when clinician offered to contact Marky, client declined, saying that she would sleep in her car. Clinician has asked (psych resident) to meet with client to see if a better plan can be developed. Does this patient meet EE criteria? No Level of risk to self: Moderate due to history of self-harm/SI when involved in interpersonal conflict Level of risk to others: Low Preliminary psychiatric diagnosis: Adjustment Disorder Plan: (include information about availability, referral, transportation, supervision) will meet with client and develop plan. Crisis Servise is available as needed. To where is the patient discharging?: This will be decided by Assessment and plan discussed with: ; Exam: Appearance: Adequate grooming; overweight Behavior: calm Cooperation: Engageable; cooperative Mood: Sad, anxious Affect: congruent Thought content: Feeling victimized by many people, institutions Thought process: Logical, organized Suicidality: Yes, with thought of aborting fetus. No intent Homicidality: Denies Clinician Sendy Dukes MA, [facility] * Haim Mendoza MD - 12/31/2013 2020 EDT DOS: 12/31/2013 Chief Complaint Patient presents with ??? Suicidal Pt to the emergency department with need for crisis eval. Recently had break up with boyfriend. States that she is not doing well. Denies SI. States that she does not feel safe right now. Admits to two attempts in the past. Is not currently taking prescribed medications. States that boyfriend threw it all in the trash. ??? Problem Pt states that cramping started this. Denies bleeding or discharge at this time. Is currently 17 weeks . The patient is a 38 y.o. female who presents today with Suicidal and Problem HPI Comments: 38-year-old female with past medical history of type II DM, depression, polycystic ovaries, and previous suicide attempt by insulin overdose in April 2013, now currently 17 weeks and is referred to the ED for evaluation of recent suicidal ideation. Patient states that 3 days ago she was kicked out of her boyfriend's apartment, has had no access to any of her medications, is currently staying with her parents, but is distraught over recent circumstances and has active thoughts of harming herself by drug overdose. Patient denies having taken any action to harm herself. In addition, patient states onset of low abdominal cramping. She denies spotting, discharge, or passage of fluid. Suicidal Presenting symptoms: depression, suicidal thoughts and suicidal threats Presenting symptoms: no delusions, no hallucinations, no homicidal ideas, no self mutilation and nosuicide attempt Duration: 3 days Chronicity: Recurrent Context: stressful life event Treatment compliance: Untreated Time since last psychoactive medication taken: 3 days Ineffective treatments: None tried Associated symptoms: abdominal pain, anxiety and feelings of worthlessness Associated symptoms: no chest pain and no headaches Risk factors: hx of mental illness, hx of suicide attempts and recent psychiatric admission Problem Primary symptoms include abdominal pain. Patient reports no vaginal bleeding and no vaginal discharge. Associated symptoms include no dysuria, no fever, no headaches and no shortness of breath. The history is provided by the patient. Review of Systems Constitutional: Negative for fever and chills. HENT: Negative for neck stiffness. Eyes: Negative for visual disturbance. Respiratory: Negative for shortness of breath. Cardiovascular: Negative for chest pain. Gastrointestinal: Positive for abdominal pain. Genitourinary: Positive for pelvic pain. Negative for dysuria, flank pain, vaginal bleeding and vaginal discharge. Musculoskeletal: Negative for back pain. Skin: Negative for rash. Neurological: Negative for headaches. Psychiatric/Behavioral: Positive for suicidal ideas and dysphoric mood. Negative for homicidal ideas, hallucinations, confusion and self-injury. The patient is nervous/anxious. All other systems reviewed and are negative. Past Medical History Diagnosis Date ??? Type [...] 1998,2007 times 2 ??? Hip arthroscopy 2012 No Known Allergies History Substance Use Topics ??? Smoking status: Current Every Day Smoker -- 0.50 packs/day for 3 years Types: Cigarettes ??? Smokeless tobacco: Never Used ??? Alcohol Use: No Family History Problem Relation Age of Onset ??? Cancer Maternal Aunt breast cancer ??? Cancer Maternal Grandmother breats cancer ??? Diabetes Paternal Grandmother ??? Diabetes Paternal Grandfather Vital Signs Vitals Reassessment?: Yes Temp: 36.3 ??C (97.3 ??F) Temp src: Tympanic Pulse: 93 Resp: 18 SpO2: 99 % BP: 113/57 mmHg Physical Exam Nursing note and vitals reviewed. Constitutional: She is oriented to person, place, and time. She is cooperative. She does not appearill. No distress. HENT: Head: Normocephalic. Mouth/Throat: Oropharynx is clear and moist. Eyes: Conjunctivae and EOM are normal. Pupils are equal, round, and reactive to light. No scleral icterus. Neck: Normal range of motion. Neck supple. No JVD present. No thyromegaly present. Cardiovascular: Normal rate, regular rhythm and normal heart sounds. Pulmonary/Chest: Effort normal and breath sounds normal. No stridor. No respiratory distress. She has no wheezes. She has no rales. Abdominal: Soft. Bowel sounds are normal. There is tenderness (mild tenderness to palpation in the lower abdomen without guarding). There is no rigidity, no rebound, no guarding and no CVA tenderness. Musculoskeletal: Normal range of motion. She exhibits no edema. Neurological: She is alert and oriented to person, place, and time. No cranial nerve deficit. Coordination normal. Skin: Skin is warm and dry. No rash noted. No pallor. Psychiatric: Her speech is normal and behavior is normal. Thought content is not delusional. Cognition and memory are normal. She exhibits a depressed mood. She expresses suicidal ideation. She expresses no homicidal ideation. She expresses suicidal plans. Radiology orders: None Imaging Results None Lab Results POCT URINE DIPSTICK (Final result) Abnormal Component (Lab Inquiry) Collection Time Result Time Color Clarity, UA Glucose Bilirubin Ketones 12/31/13 19:59:00 12/31/13 20:05:34 YELLOW Clear 1+ (A) Neg Neg Collection Time Result Time Specific Clare Blood pH Protein Urobilinogen 12/31/13 19:59:00 12/31/13 20:05:34 <=1.005 Neg 6.0 Neg 0.2 Collection Time Result Time Nitrite Leuk Esterase TECH ID 12/31/13 19:59:00 12/31/13 20:05:34 Neg Neg [id number] Test performed at Emergency Department SCREENING GLUCOSE (Final result) Abnormal Component (Lab Inquiry) Collection Time Result Time Glucose, Screening 12/31/13 19:46:00 12/31/13 20:20:04 179 (H) ELECTROLYTES (Final result) Abnormal Component (Lab Inquiry) Collection Time Result Time Sodium Potassium Chloride CO2 12/31/13 19:46:00 12/31/13 20:20:04 134 (L) 3.5 102 18 (L) BUN (Final result) Abnormal Component (Lab Inquiry) Collection Time Result Time BUN 12/31/13 19:46:00 12/31/13 20:20:04 3 (L) CREATININE (Final result) Abnormal Component (Lab Inquiry) Collection Time Result Time Creatinine GFR, Calculated 12/31/13 19:46:00 12/31/13 20:20:04 0.43 (L) >60 HEMAGRAM AND DIFFERENTIAL (Final result) Result time: 12/31/13 20:03:42 ACETAMINOPHEN (Final result) Component (Lab Inquiry) Collection Time Result Time ACTMNPHEN 12/31/13 19:46:00 12/31/13 20:20:04 <10.0 Therapeutic range: 10 - 30 ug/mL Possible toxicity: 150 - 200 ug/mL Probable toxicity: >200 ug/mL ETHANOL, BLOOD (Final result) Component (Lab Inquiry) Collection Time Result Time Ethanol 12/31/13 19:46:00 12/31/13 20:20:04 <10 HEMAGRAM (Final result) Abnormal Component (Lab Inquiry) Collection Time Result Time WBC RBC Hemoglobin HCT MCV 12/31/13 19:46:00 12/31/13 20:11:13 15.95 (H) 4.10 13.4 37.6 92 Collection Time Result Time MCH MCHC PLT RDW-CV 12/31/13 19:46:00 12/31/13 20:11:13 32.8 35.7 289 12.7 DIFFERENTIAL (Final result) Abnormal Component (Lab Inquiry) Collection Time Result Time Neutrophils Lymphocytes Monocytes Eosinophils Basophils 12/31/13 19:46:00 12/31/13 20:11:13 72.0 21.9 5.0 0.4 (L) 0.7 Collection Time Result Time ABS Neutrophils ABS Lymphs ABS Monocytes ABS Eosinophils ABS Basophils 12/31/13 19:46:00 12/31/13 20:11:13 11.48 (H) 3.49 (H) 0.80 0.07 0.12 (H) Collection Time Result Time Type of Diff: 12/31/13 19:46:00 12/31/13 20:11:13 Automated Procedures ED Course: A medical screening exam was performed. 38-year-old female with history of depression and type II DM, plus history of severe insulin overdose with suicidal intent earlier this year, now with recurrent suicidal ideation in the setting of second trimester and recent breakup of her relationship with the father of her . In addition, patient states low abdominal cramping since this morning without vaginal bleeding, discharge, or fluid. Lab data as above, with mild hyperglycemia. In addition, patient is seen in the ED by the obstetrics resident who states cervix is closed. Patient is seen in the ED by the pipe supervisor and will be evaluated by the anesthesiology resident.Patient's past history of highly lethal suicide attempt, combined with current lack of social support, make current situation worrisome for self-harm risk if patient is discharged. Care is signed out to Dr. Krause at 1:30 AM with psychiatric evaluation in progress. Disposition: Discharged The patient's pain was managed to an adequate level weighing risk vs. benefit of further medications. Upon departure from the Emergency Department, the patient's pain was 0 on a zero to ten scale. Condition at departure from the Emergency Department: Improved. ED Current Prescriptions None MDM Number of Diagnoses or Management Options Depression with suicidal ideation: Second trimester : Type 2 diabetes mellitus: Diagnosis management comments: 4 Amount and/or Complexity of Data Reviewed Clinical lab tests: ordered and reviewed Review and summarize past medical records: yes Discuss the patient with other providers: yes Final diagnoses: Depression with suicidal ideation Second trimester Type 2 diabetes mellitus PCP: Annette Sidhu 01/01/2014 16:15 * Edita Eubanks RN - 12/31/2013 1930 EDT Care assumed of A+O x3 cooperative patient c/o SI and back pain. Patient to be placed on 1:1 observation. 19:45 OOB to bathroom to void and obtain sample. 19:58 Blood drawn via saline lock per protocol, tiger and purple tube(s) sent to lab per order. IVFinfusing. heart rate 150' 21:40 patient talking on phone with ex boyfriend. Patient crying 22:38 Crisis and OB arrive at same time. Will call OB after crisis gets done 23:14 Care relinquished to Mojgan * Eros Cantor RN - 12/31/2013 1901 EDT TCALL: KIERRA CROWLEY [birth year] [facility]ERNAL [facility]IC[facility] REFERS PT TO E.D. FOR EVAL. CC: WANTS TOHARM HERSELF. HX OF INSULIN O.D. IN April. NO LONGER ON INSULIN. IN AN ABUSIVE HOME ENVIRONMENT. (GMD) documented in this encounter Plan of Treatment Not on file documented as of this encounter Goals Goal Patient Goal Type Associated Problems Recent Progress Patient-Stated? Author HEMOGLOBIN A1C < 7.0 Result Component Type 2 diabetes mellitus ([facility]) 8.7(07/07/2015 5:05 EST) No Annmarie Vigil documented as of this encounter Procedures Procedure Name Priority Date/Time Associated Diagnosis Comments POCT GLUCOSE, INTERFACED STAT 01/01/2014 10:51 EDT GLUCOSE, GLUCOMETER Routine 01/01/2014 1 0:44 EDT POCT GLUCOSE, INTERFACED STAT 01/01/2014 6:27 EDT GLUCOSE, GLUCOMETER Routine 01/01/2014 6 :26 EDT POCT URINE DIPSTICK, CLINITEK STAT 12/31/2013 19:59 EDT SCREENING GLUCOSE STAT 12/31/2013 19: 46 EDT DIFFERENTIAL STAT 12/31/2013 19:46 EDT COMPLETE BLOOD COUNT STAT 12/31/2013 19:46 EDT COMPLETE BLOOD COUNT AND DIFFERENTIAL STAT 12/31/2013 19:46 EDT BUN STAT 12/31/2013 19:46 EDT CREATININE STAT 12/31/2013 19:46 EDT ETHANOL, BLOOD STAT 12/31/2013 19:46 EDT ACETAMINOPHEN STAT 12/31/2013 19:46 EDT ELECTROLYTES STAT 12/31/2013 19:46 EDT documented in this encounter Results * (ABNORMAL) POCT GLUCOSE (01/01/2014 10:51 EDT) Glucose, POC 114(A) 70 - 100 mg/dL Blood specimen (specimen) 01/01/2014 10:51 EDT Nelly Krause MD POINT OF CARE T EST ORDERABLES * (ABNORMAL) GLUCOSE, GLUCOMETER (01/01/2014 10:44 EDT) Glucose, Fingerstick 114(H) 70 - 100 mg/dl [facility] Jewelry Technician ID [id number] [facility] Comment:Test Performed by [facility] 01/01/2014 10:4 4 EDT 01/01/2014 11:11 EDT Provider Unknown CHEMISTRY & BLOOD JAGDEEP S ORDERABLES Performing Organization Address City/[facility] Co de Phone Number [facility] [address] [place] [address] * (ABNORMAL) POCT GLUCOSE (01/01/2014 6:27 EDT) Glucose, POC 117(A) 70 - 100 mg/dL Blood specimen (specimen) 01/01/2014 6:27 EDT Nelly Krause MD POINT OF CARE T EST ORDERABLES * (ABNORMAL) GLUCOSE, GLUCOMETER (01/01/2014 6:26 EDT) Glucose, Fingerstick 117(H) 70 - 100 mg/dl [facility] Jewelry Technician ID [id number] [facility] Comment:Test Performed by [facility] 01/01/2014 6:26 EDT 01/01/2014 6:34 EDT Provider Unknown CHEMISTRY & BLOOD JAGDEEP S ORDERABLES Performing Organization Address [facility] Co de Phone Number [facility] [address] [place] [address] * (ABNORMAL) POCT URINE DIPSTICK (12/31/2013 19:59 EDT) Color YELLOW [facility] Clarity, UA Clear [facility] Glucose 1+(A) Neg [facility] Bilirubin Neg Neg [facility] Ketones Neg Neg [facility] Specific Clare <=1.005 1.001 - 1.035 [facility] Blood Neg Neg [facility] pH 6.0 4.6 - 8.0 [facility] Protein Neg Neg [facility] Urobilinogen 0.2 0.2 - 1.0 E.U./dl [facility] Nitrite Neg Neg [facility] Leuk Esterase Neg Neg [facility] paper bundler ID [id number] [facility] Comment:Test performed at [facility] Urine specimen (specimen) 12/31/2013 19:59 EDT 12/31/2013 20:05 EDT Haim Mendoza MD POINT OF CARE TEST ORDERABLES Performing Organization Address [facility] Co de Phone Number [facility] [address] [place] [address] * (ABNORMAL) DIFFERENTIAL (12/31/2013 19:46 EDT) % Neutrophils 72.0 45.5 - 79.7 % [facility] % Lymphocytes 21.9 15.0 - 46.8 % [facility] % Monocytes 5.0 1.8 - 12.0 % [facility] % Eosinophils 0.4(L) 0.6 - 6.9 % [facility] % Basophils 0.7 0.2 - 1.4 % [facility] ABS Neutrophils 11.48(H) 2.20 - 8.85 K/cmm [facility] ABS Lymphs 3.49(H) 1.09 - 3.30 K/cmm [facility] ABS Monocytes 0.80 0.1 - 0.8 K/cmm [facility] ABS Eosinophils 0.07 0.03 - 0.61 K/cmm [facility] ABS Basophils 0.12(H) 0.01 - 0.11 K/cmm [facility] Type of Diff: Automated [facility] 12/31/2013 19:4 6 EDT 12/31/2013 20:03 EDT Haim Mendoza MD HEMATOLOGY & PF4 OR DERABLES Performing Organization Address [facility] de Phone Number [facility] [address] [place] [address] * (ABNORMAL) HEMAGRAM (12/31/2013 19:46 EDT) WBC 15.95(H) 4.0 - 12.4 K/cmm [facility] RBC 4.10 3.86 - 5.04 M/cmm [facility] Hemoglobin 13.4 11.6 - 15.2 gm/dl [facility] HCT 37.6 34.9 - 44.4 % [facility] MCV 92 81 - 98 fl [facility] MCH 32.8 26.7 - 33.3 pg [facility] MCHC 35.7 32.1 - 35.9 gm/dl [facility] PLT 289 141 - 320 K/cmm [facility] RDW-CV 12.7 11.7 - 14.6 % [facility] 12/31/2013 19:4 6 EDT 12/31/2013 20:03 EDT Haim Mendoza MD HEMATOLOGY & PF4 OR DERABLES Performing Organization Address [facility] de Phone Number [facility] [address] [place] [address] * ETHANOL, BLOOD (12/31/2013 19:46 EDT) Ethanol <10 <10 mg/dl [facility] Blood specimen (specimen) 12/31/2013 19:46 EDT 12/31/2013 20:03 EDT Haim Mendoza MD CHEMISTRY & BLOOD G ORDERABLES Performing Organization Address [facility] de Phone Number [facility] [address] [place] [address] * ACETAMINOPHEN (12/31/2013 19:46 EDT) Acetaminophen <10.0 ug/ml [facility] Comment: Therapeutic range: ??10 - 30 ug/mL Possible toxicity: ??150 - 200 ug/mL Probable toxicity: ??>200 ug/mL Blood specimen (specimen) 12/31/2013 19:46 EDT 12/31/2013 20:03 EDT Haim Mendoza MD CHEMISTRY & BLOOD G ORDERABLES Performing Organization Address [facility] de Phone Number [facility] [address] [place] [address] * (ABNORMAL) CREATININE (12/31/2013 19:46 EDT) Creatinine 0.43(L) 0.52 - 1.04 mg/dl [facility] GFR, Calculated >60 >60 ml/min/1.7 3m2 [facility] Blood specimen (specimen) 12/31/2013 19:46 EDT 12/31/2013 20:03 EDT Haim Mendoza MD CHEMISTRY & BLOOD G ORDERABLES Performing Organization Address [facility] de Phone Number [facility] [address] [place] [address] * (ABNORMAL) BUN (12/31/2013 19:46 EDT) BUN 3(L) 10 - 26 mg/dl [facility] Blood specimen (specimen) 12/31/2013 19:46 EDT 12/31/2013 20:03 EDT Haim Mendoza MD CHEMISTRY & BLOOD G ORDERABLES Performing Organization Address [facility] de Phone Number [facility] [address] [place] [address] * (ABNORMAL) ELECTROLYTES (12/31/2013 19:46 EDT) Sodium 134(L) 136 - 145 mEq/L [facility] Potassium 3.5 3.5 - 5.0 mEq/L [facility] Chloride 102 96 - 110 mEq/L [facility] CO2 18(L) 24 - 32 mEq/L [facility] Blood specimen (specimen) 12/31/2013 19:46 EDT 12/31/2013 20:03 EDT Haim Mendoza MD CHEMISTRY & BLOOD G ORDERABLES [facility] [address] [place] [address] * (ABNORMAL) SCREENING GLUCOSE (12/31/2013 19:46 EDT) Glucose, Screening 179(H) 70 - 100 mg/dl [facility] Blood specimen (specimen) 12/31/2013 19:46 EDT 12/31/2013 20:03 EDT Haim Mendoza MD CHEMISTRY & BLOOD G ORDERABLES Performing Organization Address [facility] Co de Phone Number [facility] [address] [place] [address] documented in this encounter Visit Diagnoses Diagnosis Depression with suicidal ideation- Primary Depressive disorder, not elsewhere classified Second trimester state, incidental Type 2 diabetes mellitus ([facility]) Type II or unspecified type diabetes mellitus without mention of complication, not stated as uncontrolled documented in this encounter Administered Medications Inactive Administered Medications - up to 3 most recent administrations Medication Order MAR Action Action Date Dose Rate Site acetaminophen (TYLENOL) 325 mg tablet 1 dose, Starting on Sat01/01/14 at 0542, Until Sat01/01/14 at 0545 acetaminophen (TYLENOL) tablet 650 mg 650 mg, oral, NOW X1, 1 dose, On Sat01/01/14 at 0645, STAT Given 01/01/2014 5:45 EDT 650 mg metFORMIN (GLUCOPHAGE) tablet 1,000 mg 1,000 mg, oral, NOW X1, 1 dose, On Sat01/01/14 at 0115, STAT Given 01/01/2014 2:26 EDT 1,000 mg metFORMIN (GLUCOPHAGE) tablet 1,000 mg 1,000 mg, oral, 2 TIMES DAILY WITH BREAKFAST & DINNER, First dose on Sat01/01/14 at 0800, Until Discontinued, STAT Given 01/01/2014 8:08 EDT 1,000 mg QUEtiapine (SEROQUEL) tablet 200 mg 200 mg, oral, NOW X1, 1 dose, On Sat01/01/14 at 0330, STAT Given 01/01/2014 3:27 EDT 200 mg sodium chloride 0.9 % BOLUS 1,000 mL 1,000 mL, intravenous, Once (Without Time Specified), 1 dose, Starting on Edwina 12/31/13 at 1945, Until Edwina 12/31/13 at 1958, STAT Given 12/31/2013 19:58 EDT 1,000 mL documented in this encounter Discontinued Medications Medication Sig Discontinue Reason Start Date End Da te albuterol (PROVENTIL HFA, VENTOLIN HFA) 90 mcg/actuation inhaler Inhale 2 Puffs as directed every 4 hours as needed for Wheezing. 01/07/2012 12/31/2013 documented as of this encounter Historical Medications * This list may reflect changes made after this encounter. Medication Sig Dispensed Refills Start Date End Date dexmethylphenidate (FOCALIN) 10 mg tablet Take 10 mg by mouth 3 times daily. 10/21/2020 cyclobenzaprine (FLEXERIL) 10 mg tablet Take 10 mg by mouth 2 times daily. 06/28/2017 metFORMIN (GLUCOPHAGE) 500 mg tablet Take 1,000 mg by mouth 2 times daily. 04/20/2014 QUEtiapine (SEROQUEL) 200 mg tablet Take 200 mg by mouth 2 times daily. Reported on 04/30/2016 04/30/2016 added in this encounter Active and Recently Administered Medications Times are shown in EDT. Scheduled Medication Order 12/30/2013 12/31/2013 01/01/2014 acetaminophen (TYLENOL) tablet 650 mg (COMPLETED) 650 mg, oral, NOW X1, 1 dose, On Sat01/01/14 at 0645, STAT 0545 (Given - Provid er: Mojgan Bolton RN) metFORMIN (GLUCOPHAGE) tablet 1,000 mg (COMPLETED) 1,000 mg, oral, NOW X1, 1 dose, On Sat01/01/14 at 0115, STAT 0226 (Given - Provid er: Mojgan Bolton RN) metFORMIN (GLUCOPHAGE) tablet 1,000 mg (CANCELED) 1,000 mg, oral, 2 TIMES DAILY WITH BREAKFAST & DINNER, First dose on Sat01/01/14 at 0800, Until Discontinued, STAT 0808 (Given - Provid er: Stephanie Stewart RN) QUEtiapine (SEROQUEL) tablet 200 mg (COMPLETED) 200 mg, oral, NOW X1, 1 dose, On Sat01/01/14 at 0330, STAT 0327 (Given - Provid er: Mojgan Bolton RN) sodium chloride 0.9 % BOLUS 1,000 mL (COMPLETED) 1,000 mL, intravenous, Once (Without Time Specified), 1 dose, Starting on Edwina 12/31/13 at 1945, Until Edwina 12/31/13 at 1957, STAT 1957 (Given - Provider: Edita Eubanks RN) documented in this encounter Orders Nursing Count Last Ordered Date First Orde red Date NURSING COMMUNICATION 1 01/01/2014 INSERT PERIPHERAL IV 1 12/31/2013 documented in this encounter Care Teams Armament Repairer Relationship Specialty Start Date End Date Annette Sidhu, LANGUAGE PATH [address] [place] [address] [phone] PCP - General 03/19/13 07/06/19 documented as of this encounter
--- OUTSIDE RECORDS SUMMARY | 2024-02-14 15:23 | XMS_ITS | Encounter Summary ---
Author Organization [facility] Address [address] [place] [address] Care Team Providers Care Panel Monitor Name Role Phone Annette Sidhu APRN Primary Care Provider [phone] Reason for Visit * Reason Onset Date Comments Routine Visit 12/24/2013 Encounter Details Date Type Department Care Team (Late st Contact Info) Description 12/24/2013 Orders Only [facility] Obstetrics [place] [address] Cary Christensen, RN Supervision of high-risk of elderly multigravida (Primary Dx) Social History Tobacco Use Types [...] diabetes mellitus ([facility]) 8.7(07/07/2015 5:05 EST) No Annmarie Vigil documented as of this encounter Visit Diagnoses Diagnosis Supervision of high-risk of elderly multigravida- Primary documented in this encounter Care Teams Panel Monitor Relationship Specialty Start Date End Date Annette Sidhu, DEMAND INSPECTOR [address] [place] [phone] PCP - General 03/19/13 07/06/19 documented as of this encounter
--- OUTSIDE RECORDS SUMMARY | 2024-02-14 15:23 | XMS_ITS | Encounter Summary ---
Author Organization [facility] Address [address] [place] [address] Care Team Providers Care Centrifugal Operator Name Role Phone Annette Sidhu APRN Primary Care Provider [phone] Encounter Details Date Type Department Care Team (Late st Contact Info) Description 10/06/2013 Phlebotomy Only [facility] [address] [place] [address] Director Franchise Sales, Outpatient Social History Tobacco Use Types Packs/Day [...] Component Type 2 diabetes mellitus ([facility]) 8.7(07/07/2015 5:05 EST) No Annmarie Vigil documented as of this encounter Visit Diagnoses Not on filedocumented in this encounter Care Teams Centrifugal Operator Relationship Specialty Start Date End Date Annette Sidhu APRN [address] [place] [phone] PCP - General 03/19/13 07/06/19 documented as of this encounter
--- OUTSIDE RECORDS SUMMARY | 2024-02-14 15:23 | XMS_ITS | Encounter Summary ---
Author Organization [facility] Address [address] [place] [address] Care Team Providers Care Service Representative Name Role Phone Annette Sidhu APRN Primary Care Provider [phone] Encounter Details Date Type Department Care Team (Late st Contact Info) Description 10/20/2013 Phlebotomy Only [address] [address] Associate Art Director, Outpatient Social History Tobacco Use Types Packs/Day [...] Result Component Type 2 diabetes mellitus ([facility]) 8.7(07/07/2015 5:05 EST) No Annmarie Vigil documented as of this encounter Visit Diagnoses Not on filedocumented in this encounter Care Teams Service Representative Relationship Specialty Start Date End Date Annette Sidhu APRN [address] [place] [phone] PCP - General 03/19/13 07/06/19 documented as of this encounter
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
--- OUTSIDE RECORDS SUMMARY | 2024-02-14 15:23 | XMS_ITS | Encounter Summary ---
Author Organization [facility] Address [address] [place] [address] Care Team Providers Care Laminate Floor Installer Name Role Phone Annette Sidhu APRN Primary Care Provider Encounter Details Date Type Department Care Team (Late st Contact Info) Description 11/26/2013 Documentation Visit [facility] OBGYN Services - [address] [address] Khalida Quiñones MD Social History Tobacco Use [...] of this encounter Progress Notes * Wanda Burton - 11/26/2013 0822 EDT Corrected EDC for Consult on 11/30/13. jag documented in this encounter Plan of Treatment Not on file documented as of this encounter Goals Goal Patient Goal Type Associated Problems Recent Progress Patient-Stated? Author HEMOGLOBIN A1C < 7.0 Result Component Type 2 diabetes mellitus ([facility]) 8.7(07/07/2015 5:05 EST) No Annmarie Vigil documented as of this encounter Visit Diagnoses Not on filedocumented in this encounter Care Teams Laminate Floor Installer Relationship Specialty Start Date End Date Annette Sidhu APRN [address] [place] [phone] PCP - General 03/19/13 07/06/19 documented as of this encounter
--- OUTSIDE RECORDS SUMMARY | 2024-02-14 15:23 | XMS_ITS | Encounter Summary ---
Author Organization [facility] Address [address] [place] [address] Care Team Providers Care Bakery Worker Conveyor Line Name Role Phone Annette Sidhu APRN Primary Care Provider [phone] Reason for Visit * Reason Onset Date Comments Appointment Related 12/01/2013 Encounter Details Date Type Department Care Team (Late st Contact Info) Description 12/01/2013 Telephone [facility] OBGYN Services - [address] [address] Khalida Quiñones MD Appointment Related Social History [...] * Telephone Encounter - Mecca Arias - 12/01/2013 5321 EDT Ryan NOS'ed yesterday for a DIC and a NPD with Jing. I called Ryan and left a message. There are no prior notes indicating why she cancelled her JESÚS with the midwives, and the DIC was scheduled after she cancelled the JESÚS. But I assured her that if she still needed our services, we'd be more than happy to provide them and left our phone number. Mecca Arias documented in this encounter Plan of Treatment Not on file documented as of this encounter Goals Goal Patient Goal Type Associated Problems Recent Progress Patient-Stated? Author HEMOGLOBIN A1C < 7.0 Result Component Type 2 diabetes mellitus ([facility]) 8.7(07/07/2015 5:05 EST) Annmarie Lopez documented as of this encounter Visit Diagnoses Not on filedocumented in this encounter Care Teams Bakery Worker Conveyor Line Relationship Specialty Start Date End Date Annette Sidhu, CHIEF OPERATOR [address] [place] [phone] PCP - General 03/19/13 07/06/19 documented as of this encounter
--- OUTSIDE RECORDS SUMMARY | 2024-02-14 15:23 | XMS_ITS | Encounter Summary ---
Author Organization [facility] Address [address] [place] [address] Care Team Providers Care Hydro Station Supervisor Name Role Phone Annette Sidhu APRN Primary Care Provider [phone] Encounter Details Date Type Department Care Team (Late st Contact Info) Description 12/11/2013 Results Only [facility] Obstetrics & Midwifery - [address] [address] Khalida Quiñones MD Social History Tobacco Use [...] Type 2 diabetes mellitus ([facility]) 8.7(07/07/2015 5:05 EST) No Annmarie Vigil documented as of this encounter Procedures Procedure Name Priority Date/Time Associated Diagnosis Comments REFERRAL TEST 1 Routine 12/11/2013 10:51 EDT documented in this encounter Results * REFERRAL TEST 1 (12/11/2013 10:51 EDT) Test Name HARMONY WITH Y ANALYSIS [facility] Result See Pathology Scanned Report in [facility]. [facility] Comment: Assayed at [facility], [place], [place] (Note) Trisomy 21: ??Low Risk Trisomy 18: ??Low Risk Trisomy 13: ??Low Risk Ref Lab INTEGRATED [facility] Date Sample Shipped [id number] [facility] 12/11/2013 10:5 1 EDT 12/11/2013 13:01 EDT Khalida Quiñones MD LAB INFO SERVICE AND SUPPORT & PHONE RESULT [facility] [address] [place] [address] documented in this encounter Visit Diagnoses Not on filedocumented in this encounter Care Teams Hydro Station Supervisor Relationship Specialty Start Date End Date Annette Sidhu APRN [address] [place] [phone] PCP - General 03/19/13 07/06/19 documented as of this encounter
--- OUTSIDE RECORDS SUMMARY | 2024-02-14 15:23 | XMS_ITS | Encounter Summary ---
Author Organization [facility] Address [address] [place] [address] Care Team Providers Care Fast Food Shift Lead Name Role Phone Annette Sidhu APRN Primary Care Provider [phone] Encounter Details Date Type Department Care Team (Late st Contact Info) Description 10/20/2013 Orders Only [facility] OBGYN Services - [facility] [address] [place] [address] Yoana Das, RN [address] [place] [address] Unspecified complication of , antepartum (Primary Dx) Social History Tobacco Use [...] Type 2 diabetes mellitus ([facility]) 8.7(07/07/2015 5:05 EST) No Annmarie Vigil documented as of this encounter Visit Diagnoses Diagnosis Unspecified complication of , antepartum- Primary documented in this encounter Care Teams Fast Food Shift Lead Relationship Specialty Start Date End Date Annette Sidhu, SWEATBAND CUTTING MACHINE OPERATOR [address] [place] [phone] PCP - General 03/19/13 07/06/19 documented as of this encounter
--- OUTSIDE RECORDS SUMMARY | 2024-02-14 15:23 | XMS_ITS | Encounter Summary ---
Author Organization [facility] Address [address] [place] [address] Care Team Providers Care Central Lab Technician Name Role Phone Annette Sidhu APRN Primary Care Provider [phone] Reason for Visit * Reason Onset Date Comments Appointment Related 12/29/2013 Encounter Details Date Type Department Care Team (Late st Contact Info) Description 12/29/2013 Telephone [facility] Obstetrics & [place] [address] Cary Christensen, RN Appointment Related Social History Tobacco Use [...] Encounter - Cary Christensen RN - 12/29/2013 0914 EDT Call to [facility] to update patient on new appointment times for 01/04. Endo @ 13:45pm CDE @ 2:30pm MFM @ 3:45pm Asked that Guzman call to confirm appointments and/or discuss this further. documented in this encounter Plan of Treatment Not on file documented as of this encounter Goals Goal Patient Goal Type Associated Problems Recent Progress Patient-Stated? Author HEMOGLOBIN A1C < 7.0 Result Component Type 2 diabetes mellitus ([facility]) 8.7(07/07/2015 5:05 EST) Annmarie Lopez documented as of this encounter Visit Diagnoses Not on filedocumented in this encounter Care Teams Central Lab Technician Relationship Specialty Start Date End Date Annette Sidhu, GRAIN THRESHER [address] [place] [phone] PCP - General 03/19/13 07/06/19 documented as of this encounter
--- OUTSIDE RECORDS SUMMARY | 2024-02-14 15:23 | XMS_ITS | Encounter Summary ---
Author Organization [facility] Address [address] [place] [address] Care Team Providers Care Cleaning Staff Supervisor Name Role Phone SidhuErnst puckettjayant Kay APRN Primary Care Provider [phone] Reason for Visit * Reason Onset Date Comments Results 12/23/2013 Encounter Details Date Type Department Care Team (Late st Contact Info) Description 12/23/2013 Telephone [facility] Obstetrics & Midwifery - [address] [address] Cary Christensen, RN Results Social History Tobacco Use Types Packs/Day Years [...] Telephone Encounter - Cary Christensen RN - 12/23/2013 1037 EDT Return call from [facility] asking about [place] results, discussed low risk results, patient wanted to know gender, pt notified of gender. Pt also complaining of upper back pain between shoulder blades. She reports it has been constant for about 1-2 weeks, sharp, and has been using heat and ice alongwith massage with some relief. 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 She is scheduled for appointment on 12/25. Denies chest pain or shortness of breath. Advised continued use of heat, ice, massage, and rest. Encouraged Tylenol as needed. Pt verbalized understanding and in agreement of plan. No further questions or concerns exp ressed by patient. documented in this encounter Plan of Treatment Not on file documented as of this encounter Goals Goal Patient Goal Type Associated Problems Recent Progress Patient-Stated? Author HEMOGLOBIN A1C < 7.0 Result Component Type 2 diabetes mellitus ([facility]) 8.7(07/07/2015 5:05 EST) Annmarie Lopez documented as of this encounter Visit Diagnoses Not on filedocumented in this encounter Care Teams Cleaning Staff Supervisor Relationship Specialty Start Date End Date Annette Sidhu APRN [address] [place] [phone] PCP - General 03/19/13 07/06/19 documented as of this encounter
--- OUTSIDE RECORDS SUMMARY | 2024-02-14 15:23 | XMS_ITS | Encounter Summary ---
Author Organization [facility] Address [address] [place] [address] Care Team Providers Care Banquet Kitchen Supervisor Name Role Phone Annette Sidhu APRN Primary Care Provider Encounter Details Date Type Department Care Team (Latest Contact Info) Description 10/20/2013 10:57 EDT - 10/20/2013 23:59 EDT Hospital Encounter [address] [address] Imani Tapia MD [address] [place] [address] [address] [place] [phone] Discharge Disposition: Home or Self Care Social [...] as of this encounter Discharge Diagnoses Diagnosis V72.40 EXAMINATION OR TEST, UNCONFIRMED[ICD-9-CM] documented in this encounter Medications at Time [...] mcg/actuation nasal sprayIndications:Aller gic rhinitis Instill 1 [place] into both nostrils daily. 1 Bottle 2 [...] 08/12/2012 12/31/2013 documented as of this encounter Discharge Disposition Disposition Code Departure Means Destination Home or Self [facility] documented in this encounter Plan of Treatment Not on file documented as of this encounter Goals Goal Patient Goal Type Associated Problems Recent Progress Patient-Stated? Author HEMOGLOBIN A1C < 7.0 Result Component Type 2 diabetes mellitus ([facility]) 8.7(07/07/2015 5:05 EST) No Annmarie Vigil documented as of this encounter Procedures Procedure Name Priority Date/Time Associated Diagnosis Comments QUANT BETA HCG, Routine 10/20/2013 11:03 EDT documented in this encounter Results * (ABNORMAL) HCG FOR (10/20/2013 11:03 EDT) Quant Beta HCG, Preg 37,886(H) <5 mIU/ml [facility] Comment: Reference Range: Negative = <5 Indeterminate = 5-25 recommend repeat in 48 hours. Positive = >25 10/20/2013 11:0 3 EDT 10/20/2013 11:54 EDT Imani Tapia MD CHEMISTRY & BLOOD GAS ORDERABLES Performing Organization Address City/State/[facility] Co de Phone Number [facility] [address] [place] [address] documented in this encounter Visit Diagnoses Not on filedocumented in this encounter Care Teams Banquet Kitchen Supervisor Relationship Specialty Start Date End Date Annette Sidhu, PRICING CONSULTANT [address] [place] [phone] PCP - General 03/19/13 07/06/19 documented as of this encounter
--- OUTSIDE RECORDS SUMMARY | 2024-02-14 15:23 | XMS_ITS | Encounter Summary ---
Author Organization [facility] Address [address] [place] [address] Care Team Providers Care Marriage Counselor Name Role Phone Annette Sidhu APRN Primary Care Provider [phone] Reason for Referral * DIRECTOR MARKET INTELLIGENCE (Routine) - Closed Specialty Diagnoses / Procedures Referred By [facility] t Referred To Contact Diagnoses Unspecified complication of , antepartum Procedures EAR NOSE THROAT SURGEON US OB FIRST TRIMESTER TRANSVAGINAL Yoana Das, PRISCILA [address] [place] [address] Referral ID Status Reason Start Date Expiration Date Visits Re quested Visits Authorized [id number] Closed 10/20/2013 1 1 Encounter Details Date Type Department Care Team (Late st Contact Info) Description 10/20/2013 Orders Only [facility] [place] [address] Yoana Das, RN [address] [place] [address] Unspecified complication of , antepartum (Primary Dx) [...] Type 2 diabetes mellitus ([facility]) 8.7(07/07/2015 5:05 EST) No Annmarie Vigil documented as of this encounter Procedures Procedure Name Priority Date/Time Associated Diagnosis Comments EAR NOSE THROAT SURGEON US OB FIRST TRIMESTER TRANSVAGINAL Routine 10/20/2013 14:14 EDT Unspecified complication of , antepartum documented in this encounter Results * EAR NOSE THROAT SURGEON US OB FIRST TRIMESTER TRANSVAGINAL (10/20/2013 14:14 EDT) Anatomical Region Laterality Modality Other 10/20/2013 14:1 4 EDT 10/20/2013 14:16 EDT Narrative 10/20/2013 14:16 EDT Indication: dating. History: Age: 38 years. Maternal age at EDC: 38 years. Dating: LMP: 08/31/2013 EDC: 06/07/2014 GA by LMP: 7w1d Current Scan on: 10/20/2013 EDC: 06/10/2014 GA by current scan: 6w5d Best Overall Assessment: 10/20/2013 EDC: 06/07/2014 Assessed GA: 7w1d The calculation of the gestational age by current scan was based on CRL. The Best Overall Assessment is based on the LMP. Early Assessment: Biometry: CRL 7.9 mm 6th% 6w5d (6w1d to 7w2d) Gestational Sac present. Yolk Sac present. Embryo present. Heart activity: Present. Heart rate: 136 bpm. Maternal Structures: Uterus: anteverted. Right Ovary: normal. Right Ovary size: 20 mm x 28 mm x 22 mm. Volume: 6.5 ml. Left Ovary: normal. Left Ovary size: 18 mm x 20 mm x 13 mm. Volume: 2.5 ml. Cul de Sac / Pouch of Jaquan: no free fluid visible. Report Summary: Impression: 1st Trimester OB scan ,transvaginal +[id number] Single viable intrauterine (IUP) , size equals menstrual dates. Procedure Note 10/20/2013 Indication: dating. History: Age: 38 years. Maternal age at EDC: 38 years. Dating: LMP: 08/31/2013 EDC: 06/07/2014 GA by LMP: 7w1d Current Scan on: 10/20/2013 EDC: 06/10/2014 GA by current scan: 6w5d Best Overall Assessment: 10/20/2013 EDC: 06/07/2014 Assessed GA: 7w1d The calculation of the gestational age by current scan was based on CRL. The Best Overall Assessment is based on the LMP. Early Assessment: Biometry: CRL 7.9 mm 6th% 6w5d (6w1d to 7w2d) Gestational Sac present. Yolk Sac present. Embryo present. Heart activity: Present. Heart rate: 136 bpm. Maternal Structures: Uterus: anteverted. Right Ovary: normal. Right Ovary size: 20 mm x 28 mm x 22 mm. Volume: 6.5 ml. Left Ovary: normal. Left Ovary size: 18 mm x 20 mm x 13 mm. Volume: 2.5 ml. Cul de Sac / Pouch of Jaquan: no free fluid visible. Report Summary: Impression: 1st Trimester OB scan ,transvaginal +[id number] Single viable intrauterine (IUP) , size equals menstrual dates. Imani Tapia MD IMG EAR NOSE THROAT SURGEON O RDERABLES documented in this encounter Visit Diagnoses Diagnosis Unspecified complication of , antepartum- Primary documented in this encounter Care Teams Marriage Counselor Relationship Specialty Start Date End Date Annette Sidhu, ROVING CHANGER [address] [place] [phone] PCP - General 03/19/13 07/06/19 documented as of this encounter
--- OUTSIDE RECORDS SUMMARY | 2024-02-14 15:23 | XMS_ITS | Encounter Summary ---
Author Organization [facility] Address [address] [place] [address] Care Team Providers Care Board Operator Name Role Phone Bhargav Mccarty APRN Primary Care Provider [phone] Encounter Details Date Type Department Care Team (Latest Contact Info) Description 10/06/2013 14:45 EDT - 10/06/2013 23:59 EDT Hospital Encounter [address] [address] Aminta Holland MD [address] [place] [address] [address] [place] [address] Discharge Disposition: Home or Self [...] as of this encounter Discharge Diagnoses Diagnosis V72.31 ROUTINE GYNECOLOGICAL EXAMINATION[ICD-9-CM] V76.2 SCREENING MAL NEOP-CERVIX[ICD-9-CM] V73.81 SPECIAL SCREENING EXAMINATION, HUMAN PAPILLOMAVIRUS (HPV)[ICD-9-CM] V74.5 SCREENING FOR VENERAL DIS[ICD-9-CM] 269.2 VITAMIN DEFICIENCY NOS[ICD-9-CM] V22.1 SUPERVIS OTHER NORMAL PREG[ICD-9-CM] V72.40 EXAMINATION OR TEST, UNCONFIRMED[ICD-9-CM] V77.1 SCREENING-DIABETES MELLITUS[ICD-9-CM] V77.0 SCREENING-THYROID DISORDER[ICD-9-CM] documented in this encounter Medications at Time [...] mcg/actuation nasal sprayIndications:Aller gic rhinitis Instill 1 [place] into both nostrils daily. 1 Bottle 2 [...] Departure Means Destination Home or Self Senior Care documented in this encounter Plan of Treatment Pending Results Name Type Priority Associated Diagnoses Date /Time PROFILE FOR [facility] Lab Routine 10/07/19 14 14:56 EDT Scheduled Orders Name Type Priority Associated Diagnoses Orde r Schedule PROFILE FOR [facility] Lab Routine One Time for 1 Occurrences starting 10/06/2013 until 10/06/2013 documented as of this encounter Goals Goal Patient Goal Type Associated Problems Recent Progress Patient-Stated? Author HEMOGLOBIN A1C < 7.0 Result Component Type 2 diabetes mellitus ([facility]) 8.7(07/07/2015 5:05 EST) nAnmarie Lopez documented as of this encounter Procedures Procedure Name Priority Date/Time Associated Diagnosis Comments CHLAMYDIA/N. GONORRHOEAE AMPLIFIED RNA, URINE Routine 10/06/2013 20:37 EDT BB STUDY Routine 10/06/2013 14: 56 EDT SYPHILIS SEROLOGY Routine 10/06/2013 14: 56 EDT DIFFERENTIAL Routine 10/06/2013 14:56 EDT RUBELLA IGG ANTIBODY Routine 10/06/2013 14:56 EDT HEPATITIS B SURFACE ANTIGEN Routine 10/06/2013 14:56 EDT COMPLETE BLOOD COUNT Routine 10/06/2013 14:56 EDT VARICELLA IGG ANTIBODY Routine 10/06/2013 14:56 EDT HIV 1/2 ANTIGEN AND ANTIBODY, 4TH GENERATION Routine 10/06/2013 14:56 EDT QUANT BETA HCG, Routine 10/06/2013 14:56 EDT TSH Routine 10/06/2013 14:56 EDT HEMOGLOBIN A1C Routine 10/06/2013 14:56 EDT VITAMIN B12 Routine 10/06/2013 14:56 EDT CREATININE Routine 10/06/2013 14:56 EDT PAP TEST- RESULT ONLY Routine 10/06/2013 0:00 EDT documented in this encounter Results * CHLAMYDIA/GC AMPLIFIED, URINE (10/06/2013 20:37 EDT) Specimen Description Urine [facility] Chlamydia Result No Chlamydia trachomatis DNA detected by tissue packer mediated amplification. [facility] GC Result No Neisseria gonorrhoeae DNA detected by tissue packer mediated amplification. [facility] 10/06/2013 20:3 7 EDT 10/06/2013 20:37 EDT Aminta Holland MD MICROBIOLOGY - GENERAL ORDERABLES Performing Organization Address [facility] Co de Phone Number [facility] [address] [place] [address] * SYPHILIS SEROLOGY (10/06/2013 14:56 EDT) Syphilis Serology Interpretation: Nonreactive [facility] Comment:Reference Range: Non reactive 10/06/2013 14:5 6 EDT 10/06/2013 15:58 EDT Aminta Holland MD IMMUNOLOGY A ND SEROLOGY ORDERABLES Performing Organization Address [facility] Co de Phone Number [facility] [address] [place] [address] * HIV 1/2 ANTIBODY (10/06/2013 14:56 EDT) HIV 1/2 Antibody Negative [facility] Comment: If acute HIV-1 infection is suspected in a high risk patient, submit plasma specimen for HIV-1 RNA quantification test. Reference Range: ??Negative Assayed utilizing [employer] chemiluminescent technology. 10/06/2013 14:5 6 EDT 10/06/2013 15:58 EDT Aminta Holland MD IMMUNOLOGY A ND SEROLOGY ORDERABLES Performing Organization Address [facility]/ZIP Co de Phone Number [facility] [address] [place] [address] * RUBELLA IGG ANTIBODY (10/06/2013 14:56 EDT) Rubella IgG Ab Positive [facility] Comment: Positive results suggest immunity to Rubella infection. 10/06/2013 14:5 6 EDT 10/06/2013 15:58 EDT Aminta Holland MD CHEMISTRY & BLOOD GAS ORDERABLES Performing Organization Address [facility] Co de Phone Number [facility] [address] [place] [address] * HEPATITIS B SURFACE ANTIGEN (10/06/2013 14:56 EDT) Hepatitis B Surface Ag Negative [facility] Comment:Reference Range: Neg ative 10/06/2013 14:5 6 EDT 10/06/2013 15:58 EDT Aminta Holland MD CHEMISTRY & BLOOD GAS ORDERABLES Performing Organization Address [facility] Co de Phone Number [facility] [address] [place] [address] * BB STUDY (10/06/2013 14:56 EDT) ABO and Rh Type A NEGATIVE [facility] Antibody Screen Neg [facility] 10/06/2013 14:5 6 EDT 10/06/2013 15:58 EDT Aminta Holland MD BLOOD BANK T ESTS Performing Organization Address [facility] Co de Phone Number [facility] [address] [place] [address] * (ABNORMAL) DIFFERENTIAL (10/06/2013 14:56 EDT) % Neutrophils 51.4 45.5 - 79.7 % [facility] % Lymphocytes 39.7 15.0 - 46.8 % [facility] % Monocytes 6.7 1.8 - 12.0 % [facility] % Eosinophils 1.7 0.6 - 6.9 % [facility] % Basophils 0.5 0.2 - 1.4 % [facility] ABS Neutrophils 4.92 2.20 - 8.85 K/cmm [facility] ABS Lymphs 3.80(H) 1.09 - 3.30 K/cmm [facility] ABS Monocytes 0.64 0.1 - 0.8 K/cmm [facility] ABS Eosinophils 0.17 0.03 - 0.61 K/cmm [facility] ABS Basophils 0.05 0.01 - 0.11 K/cmm [facility] Type of Diff: Automated [facility] 10/06/2013 14:5 6 EDT 10/06/2013 15:58 EDT Aminta Holland MD HEMATOLOGY & PF4 ORDERABLES Performing Organization Address [facility] Co de Phone Number [facility] [address] [place] [address] * HEMAGRAM (10/06/2013 14:56 EDT) WBC 9.58 4.0 - 12.4 K/cmm [facility] RBC 4.20 3.86 - 5.04 M/cmm [facility] Hemoglobin 13.8 11.6 - 15.2 gm/dl [facility] HCT 38.5 34.9 - 44.4 % [facility] MCV 92 81 - 98 fl [facility] MCH 32.8 26.7 - 33.3 pg [facility] MCHC 35.8 32.1 - 35.9 gm/dl [facility] PLT 279 141 - 320 K/cmm [facility] RDW-CV 12.7 11.7 - 14.6 % [facility] 10/06/2013 14:5 6 EDT 10/06/2013 15:58 EDT Aminta Holland MD HEMATOLOGY & PF4 ORDERABLES Performing Organization Address [facility] de Phone Number [facility] [address] [place] [address] * VARICELLA IGG ANTIBODY (10/06/2013 14:56 EDT) [facility] Varicella IgG Ab Interpretati on: Positive [facility] Comment: Presence of detectable Varicella Zoster virus IgG antibodies. 10/06/2013 14:5 6 EDT 10/06/2013 15:58 EDT Aminta Holland MD IMMUNOLOGY A ND SEROLOGY ORDERABLES Performing Organization Address [facility] Phone Number [facility] [address] [place] [address] * TSH (10/06/2013 14:56 EDT) [facility] TSH 1.06 0.35 - 5.00 uIU/ml [facility] 10/06/2013 14:5 6 EDT 10/06/2013 15:58 EDT Aminta Holland MD CHEMISTRY & BLOOD GAS ORDERABLES Performing Organization Address [facility] de Phone Number [facility] [address] [place] [address] * (ABNORMAL) HCG FOR (10/06/2013 14:56 EDT) [facility] Quant Beta HCG, Preg 1,274(H) <5 mIU/ml [facility] Comment: Reference Range: Negative = <5 Indeterminate = 5-25 recommend repeat in 48 hours. Positive = >25 10/06/2013 14:5 6 EDT 10/06/2013 15:58 EDT Aminta Holland MD CHEMISTRY & BLOOD GAS ORDERABLES Performing Organization Address [facility] Co de Phone Number [facility] [address] [place] [address] * HEMOGLOBIN A1C (10/06/2013 14:56 EDT) Hemoglobin A1C 7.4 % [facility] Comment: Reference Range: <5.7% Normal 5.7-6.4% Increased risk for diabetes =>6.5% Diagnostic for diabetes (if confirmed) The A1c goal for non adults in general is <7%. The A1c goal for selected patients may be significantly lower than 7% if this can be achieved without significant hypoglycemia or other adverse effects of treatment. Est Avg Glucose 166 mg/dl [facility] Comment: eAG represents the A1c result expressed as average glucose in mg/dl. 10/06/2013 14:5 6 EDT 10/06/2013 15:58 EDT Aminta Holland MD CHEMISTRY & BLOOD GAS ORDERABLES Performing Organization Address [facility] Phone Number [facility] [address] [place] [address] * (ABNORMAL) CREATININE (10/06/2013 14:56 EDT) Creatinine 0.50(L) 0.52 - 1.04 mg/dl [facility] GFR, Calculated >60 >60 ml/min/1.7 3m2 [facility] 10/06/2013 14:5 6 EDT 10/06/2013 15:58 EDT Aminta Holland MD CHEMISTRY & BLOOD GAS ORDERABLES Performing Organization Address [facility] Co de Phone Number [facility] [address] [place] [address] * VITAMIN B12 (10/06/2013 14:56 EDT) Pathologist [facility] Vitamin B-12 385 211 - 911 pg/ml [facility] 10/06/2013 14:5 6 EDT 10/06/2013 15:58 EDT Aminta Holland MD CHEMISTRY & BLOOD GAS ORDERABLES [facility] [address] [place] [address] * PAP TEST- RESULT ONLY (10/06/2013 0:00 EDT) Pathologist [facility] Pathology Report: CYTOPATHOLOGY REPORT Reports generated via electronic interface contain original data; however they are lacking the format of the original report. Caution should be taken when reading/interpreti ng unformatted reports. Name: ? HILDA CROWLEY ? Accession #: ? [id number] ? : ? 1975 (Age: 38) ??F ?Collect Date: ? 10/06/2013 ? Location: ? [facility] ? Receive Date: ? 10/07/2013 ? Provider: AMINTA HOLLAND MD Copy to: BHARGAV MCCARTY APRN ? Final Report SPECIMEN ADEQUACY ? Satisfactory for Evaluation - transformation zone component present GENERAL CATEGORIZATION ? Negative for Intraepithelial Lesion or Malignancy INTERPRETATION ? Fungal organisms present morphologically consistent with Sushma species. Last Menstrual Period: 08/27/13 Menstrual/Pregnanc y Status: ?? Specimen/Source: ??Pap Test, Cervix/Endocervix, ThinPrep Imaging System with manual evaluation Document reviewed and electronically signed by: ? KHUSHBU Brar(ASCP) ? Report ??Date: 10/14/2013 11:24 HPV with Pap Test ? Date Ordered: ? 10/14/2013 ? Status: ?? Signed Out ?Date Complete: ? 10/16/2013 ? By: ??System Interface ? Date Reported: ? 10/16/2013 ? Interpretation RESULT: Negative for HPV. No E6 or E7 mRNA is detected from HPV types 16,18,31,33,35, 39,45,51,52,56,58, 59,66, and 68 by tissue packer mediated amplification. Comments Document reviewed and electronically signed by: ? System Interface ? Report date: 10/16/2013 By the signature above, the attending physician certifies that he/she has personally conducted a gross and/or microscopic examination of the described specimens and rendered or confirmed the above diagnosis. End of Report [facility] 10/06/2013 10/07/2013 Aminta Holland MD PATHOLOGY OR DERABLES Performing Organization Address City/State/[facility] Co de Phone Number [facility] [address] [place] [address] documented in this encounter Visit Diagnoses Not on filedocumented in this encounter Care Teams Board Operator Relationship Specialty Start Date End Date Bhargav Mccarty, MUCK [employer]ER [employer]ING [address] [place] [phone] PCP - General 03/19/13 07/06/19 documented as of this encounter
--- OUTSIDE RECORDS SUMMARY | 2024-02-14 15:23 | XMS_ITS | Encounter Summary ---
Author Organization [facility] Address [address] [place] [address] Care Team Providers Care Junior Legal Secretary Name Role Phone Annette Sidhu APRN Primary Care Provider Reason for Visit * Reason Onset Date Comments Other 12/15/2013 proof of pregnan cy, nausea Encounter Details Date Type Department Care Team (Late st Contact Info) Description 12/15/2013 Telephone [facility] [place] [address] Mame Long RN Other (proof of , nausea) Social History Tobacco Use Types Packs/Day Years [...] encounter Miscellaneous Notes * Telephone Encounter - Mame Long - 12/15/2013 1212 EDT Ryan called to request proof of be sent to her home address. Filled out and mailed. Copyscanned. -Also, c/o nausea and some vomiting. Requesting Zofran. Discussed trying b-6 50mg 2x daily with 1/2unisom at bedtime . Ryan is agreeable to trying this. She would like to take the 50mg unisom sinceshe has the caplets at home and does not want to buy something else. Ryan will try this through the weekend. Instructed patient if n/v worsen she needs to call [facility]. Ryan verbalized understanding -Ryan also wanted to know if she should contact [facility] if her bg's are low.. Instructed Ryan if she has a bg of 70 or less and is symptomatic she should call. Discussed how to treat low blood sugar with juice or glucose tabs. Ryan has both at home and repeated how to use them. documented in this encounter Plan of Treatment Not on file documented as of this encounter Goals Goal Patient Goal Type Associated Problems Recent Progress Patient-Stated? Author HEMOGLOBIN A1C < 7.0 Result Component Type 2 diabetes mellitus ([facility]) 8.7(07/07/2015 5:05 EST) Annmarie Lopez documented as of this encounter Visit Diagnoses Not on filedocumented in this encounter Care Teams Junior Legal Secretary Relationship Specialty Start Date End Date Annette Sidhu APRN [address] [place] [phone] PCP - General 03/19/13 07/06/19 documented as of this encounter
--- OUTSIDE RECORDS SUMMARY | 2024-02-14 15:24 | XMS_ITS | Encounter Summary ---
Author Organization [facility] Address [address] [place] [address] Care Team Providers Care Thread Grinder Tool Name Role Phone Tamara Neal MD Primary Care Provider + Reason for Visit * Reason Onset Date Comments Prior Auth, Medication 10/01/2012 Encounter Details Date Type Department Care Team (Late st Contact Info) Description 10/01/2012 Telephone [facility] Family Medicine - [address] [address] Tamara Neal MD [address] [place] [phone] Prior Auth, Medication Social History Tobacco Use Types Packs/Day Years Used Date Smoking Tobacco: Former Cigarettes 1 5 0 08/22/2002 - 08/23/2007 Smokeless Tobacco: Never Alcohol Use Standard Drinks/Week Comments No 0 (1 standard drink = 0.6 oz pur e alcohol) Sex and Gender Information Value Date Recorded Sex Assigned at Not on file Gender Identity Not on file Sexual Orientation Not on file documented as of this encounter Miscellaneous Notes * Telephone Encounter - Tamara Neal MD - 10/02/2012 0501 EDT Neither of the listed options provide BOTH anti-depressant and anti-neuropathic pain relief. She needs both. Lyrcia and Neurontin have already been tried and failed in past (2 of the anti-convulsant class anyways) * Telephone Encounter - Almita Ponce - 10/01/2012 5350 EDT [place] Medicaid denied Cymbalta. Patient must try two medications from the following two medication categories. Two from tricyclic and two from the Anticonvulsive lists. documented in this encounter Plan of Treatment Not on file documented as of this encounter Visit Diagnoses Not on filedocumented in this encounter Care Teams Thread Grinder Tool Relationship Specialty Start Date End Date Tamara Neal MD [address] [place] [phone] PCP - General 09/13/08 03/18/13 documented as of this encounter
--- OUTSIDE RECORDS SUMMARY | 2024-02-14 15:24 | XMS_ITS | Encounter Summary ---
Author Organization [facility] Address [address] [place] [address] Care Team Providers Care Automated Logistics Specialist Name Role Phone Tamara Neal MD Primary Care Provider + Reason for Visit * Reason Comments Other Encounter Details Date Type Department Care Team ([facility] st Contact Info) Description 09/03/2012 10:30 EDT Office Visit [facility] [place] - [address] [address] Joaquín Arana [facility] [address] [facility] [address] [place] [phone] Unspecified episodic mood disorder (Primary Dx); Anxiety state, unspecified Social History Tobacco Use Types Packs/Day [...] of this encounter Visit Diagnoses Diagnosis Unspecified episodic mood disorder- Primary Anxiety state, unspecified documented in this encounter Care Teams Automated Logistics Specialist Relationship Specialty Start Date End Date Tamara Neal MD [address] [place] [phone] PCP - General 09/13/08 03/18/13 documented as of this encounter
--- OUTSIDE RECORDS SUMMARY | 2024-02-14 15:24 | XMS_ITS | Encounter Summary ---
Author Organization [facility] Address [address] [place] [address] Care Team Providers Care Hearing Therapist Name Role Phone Tamara Neal MD Primary Care Provider + Reason for Visit * Reason Onset Date Comments Other 11/03/2012 Called to invite to IOP program Encounter Details Date Type Department Care Team ([facility] st Contact Info) Description 11/03/[address] [phone] Joaquín Arana, [facility] [address] [facility] [address] [place] [phone] Other (Called to invite to IOP program) Social History Tobacco Use Types Packs/Day Years [...] on filedocumented in this encounter Care Teams Hearing Therapist Relationship Specialty Start Date End Date Tamara Neal MD [address] [place] [phone] PCP - General 09/13/08 03/18/13 documented as of this encounter
--- OUTSIDE RECORDS SUMMARY | 2024-02-14 15:24 | XMS_ITS | Encounter Summary ---
Author Organization [facility] Address [address] [place] [address] Care Team Providers Care Negative Spotter Name Role Phone Tamara Neal MD Primary Care Provider + Annette Sidhu APRN Primary Care Provider [phone] Encounter Details Date Type Department Care Team (Late st Contact Info) Description 10/06/2012 Documentation Visit [facility] Sports Medicine Program - [address] [address] Alberto Moffett MD [address] [place] [phone] Social History Tobacco Use Types Packs/Day Years [...] as of this encounter Progress Notes * Alberto Moffett MD - 11/08/2012 0715 EDT SPORTS MEDICINE SERVICE PROGRESS / FOLLOWUP NOTE - 10/06/2012 I had a telephone conversation with Guzman today regarding her ongoing left hip pain. She is still having considerable left groin pain. She also has buttock pain. Her buttock pain is more tolerable and worse with standing. 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 She did undergo an image-guided corticosteroid injection into her left hip joint on 07/02/2012 by anesthesia pain service. She says that she had 1 to 2 days of good relief after this injection. Her history of groin pain and short-term response to an intraarticular injection does suggest that she has pain coming from the joint; however, she had no relief basically with an arthroscopic surgery.It is not clear to me at all what the source of her pain is. She has tried multiple methods of relieving her pain including medication, physical therapy, injections, home child care provider, and acupuncture. At this point, I am really not sure at all if there are any good options for her in terms of painrelief. I would be extremely hesitant to consider any further surgery. I did discuss the option of meeting with Dr De Santiago to discuss chronic pain management and alternative treatment. She is very agreeable to this. We will set up an appointment with Dr De Santiago. If this does not lead to a decrease in her pain, the next step might be a repeat MRI arthrogram and potentially a second opinion with another hip surgeon. Alberto Moffett MD 05 13 PM - Alberto Moffett MD rn Dictation Date: [id number] cc: Tamara Neal MD, [address] documented in this encounter Plan of Treatment [...] on filedocumented in this encounter Care Teams Negative Spotter Relationship Specialty Start Date End Date Tamara Neal MD [address] [place] [phone] PCP - General 09/13/08 03/18/13 Annette Sidhu APRN NPI: [id number] [place] [phone] PCP - General 03/19/13 07/06/19 documented as of this encounter
--- OUTSIDE RECORDS SUMMARY | 2024-02-14 15:24 | XMS_ITS | Encounter Summary ---
Author Organization [facility] Address [address] [place] [address] Care Team Providers Care Spooling Machine Operator Name Role Phone Annette Sidhu APRN Primary Care Provider Encounter Details Date Type Department Care Team (Latest Contact Info) Description 04/14/2013 11:17 EST - 04/14/2013 23:59 [facility] Hospital Encounter [address] [address] Annette Sidhu APRN [address] [place] [address] Discharge Disposition: Auto Discharge Social History Tobacco [...] on file documented as of this encounter Discharge Diagnoses Diagnosis 250.00 DIABETES UNCOMPL ADULT-TYPE II[ICD-9-CM] 311. DEPRESSIVE DISORDER NEC[ICD-9-CM] V58.69 [facility] DATA ADMINISTRATOR USE MEDICATN[ICD-9-CM] documented in this encounter Medications at Time [...] Take 1 Tab by mouth daily. 12/31/2013 cloNIDine (CATAPRES) 0.1 mg tablet Take 1 Tab by mouth 2 times daily. 10 Tab 0 09/24/2012 05/01/2013 cyclobenzaprine (FLEXERIL) 10 mg tablet Take 1 Tab by mouth 3 times daily as needed for Muscle Spasms. 90 Each 1 08/12/2012 12/31/2013 doxycycline (VIBRA-TABS) 100 mg tablet Take 1 Tab by mouth 2 times daily. 28 Tab 0 09/30/2012 05/01/2013 DULoxetine (CYMBALTA) 30 mg capsule Take 1 Cap by mouth daily. 30 Cap 2 09/24/2012 05/06/2013 fluticasone (FLONASE) 50 mcg/actuation nasal sprayIndications:Pelon rgic rhinitis Instill 1 [place] into both nostrils daily. 1 Bottle 2 09/24/2012 12/31/2013 hydrOXYzine (ATARAX) 25 mg tablet Take 1 Tab by mouth 3 times daily as needed for Itching. 30 Tab 0 09/24/2012 05/19/2013 ibuprofen (MOTRIN) 200 mg tablet Take 3 Tabs by mouth every 6 hours as needed. 12/31/2013 insulin glargine (LANTUS) 100 unit/mL injection 14 units at bedtime 1 Vial 0 07/09/2012 05/06/2013 levonorgestrel (MIRENA) 20 mcg/24 hr IUD 1 Each by Intrauterine route once. 08/26/2008 05/01/2013 metformin (GLUCOPHAGE) 1,000 mg tablet Take 1 Tab by mouth 2 times daily. 180 Each 3 04/30/2012 05/06/2013 naproxen (NAPROSYN) 500 mg tablet Take 1 Tab by mouth 2 times daily with breakfast and dinner. 60 Each 2 04/30/2012 12/31/2013 pioglitazone (ACTOS) 30 mg tablet Take 1 Tab by mouth daily. 90 Tab 3 08/12/2012 05/01/2013 ramelteon (ROZEREM) 8 mg tablet Take 1 Tab by mouth daily. 30 Each 5 08/12/2012 05/01/2013 simvastatin (ZOCOR) 20 mg tablet Take 1 Tab by mouth every evening. 90 Tab 3 08/12/2012 12/31/2013 traZODone (DESYREL) 100 mg tabletIndications:Chr onic pain syndrome Take 1.5 Tabs by mouth at bedtime. 90 Tab 3 08/12/2012 05/19/2013 documented as of this encounter Discharge Disposition Disposition Code Departure Means Destination Auto Discharge Home documented in this encounter Plan of Treatment Not on file documented as of this encounter Goals Goal Patient Goal Type Associated Problems Recent Progress Patient-Stated? Author HEMOGLOBIN A1C < 7.0 Result Component Type 2 diabetes mellitus ([facility]) 8.7(07/07/2015 5:05 EST) No Annmarie Vigil documented as of this encounter Procedures Procedure Name Priority Date/Time Associated Diagnosis Comments HEMOGLOBIN A1C Routine 04/14/2013 11:31 EST COMPREHENSIVE METABOLIC PANEL (CMP) Routine 04/14/2013 11:31 EST documented in this encounter Results * HEMOGLOBIN A1C (04/14/2013 11:31 EST) Hemoglobin A1C 7.5 % JAYME GONZALES Comment: Reference Range: <5.7% Normal 5.7-6.4% Increased risk for diabetes =>6.5% Diagnostic for diabetes (if confirmed) The A1c goal for non adults in general is <7%. The A1c goal for selected patients may be significantly lower than 7% if this can be achieved without significant hypoglycemia or other adverse effects of treatment. Est Avg Glucose 169 mg/dl CONSTANTINO GONZALES Comment: eAG represents the A1c result expressed as average glucose in mg/dl. 04/14/2013 11:3 1 EST 04/14/2013 12:05 EST Annette Sidhu APRN CHEMISTRY & BLOOD GA S ORDERABLES [facility] [address] [place] [address] * (ABNORMAL) COMPREHENSIVE METABOLIC PANEL (CMP) (04/14/2013 11:31 EST) Potassium 4.3 3.5 - 5.0 mEq/L [facility] Sodium 137 136 - 145 mEq/L [facility] Chloride 99 96 - 110 mEq/L [facility] CO2 26 24 - 32 mEq/L [facility] Total Alkaline Phosphatase 71 38 - 126 U/L [facility] Bilirubin, Total 0.5 0.2 - 1.3 mg/dl [facility] AST 25 15 - 46 U/L [facility] ALT 46 9 - 52 U/L [facility] Albumin 4.5 3.4 - 4.9 g/dl [facility] Total Protein 6.9 6.5 - 8.3 g/dl [facility] Creatinine 0.50(L) 0.52 - 1.04 mg/dl [facility] GFR, Calculated >60 >60 ml/min/1.7 3m2 [facility] BUN 10 10 - 26 mg/dl [facility] Calcium 9.5 8.5 - 10.5 mg/dl [facility] Calculated Calcium 9.4 8.5 - 10.5 mg/dl [facility] Glucose, Serum 196(H) 70 - 100 mg/dl [facility] Fasting? Unknown [facility] 04/14/2013 11:3 1 EST 04/14/2013 12:05 EST Annette Sidhu APRN CHEMISTRY & BLOOD GA S ORDERABLES [facility] [address] [place] [address] documented in this encounter Visit Diagnoses Not on filedocumented in this encounter Care Teams Spooling Machine Operator Relationship Specialty Start Date End Date Annette Sidhu APRN [address] [place] [phone] PCP - General 03/19/13 07/06/19 documented as of this encounter
--- OUTSIDE RECORDS SUMMARY | 2024-02-14 15:24 | XMS_ITS | Encounter Summary ---
Author Organization [facility] Address [address] [place] [address] Care Team Providers Care Fire Prevention Officer Name Role Phone Tamara Neal MD Primary Care Provider + Reason for Visit * Reason Onset Date Comments Follow-up 09/01/2012 [facility] Walk in clinic on 08/29/2012 for c/o hand pain DX of Cellulitis Encounter Details Date Type Department Care Team (Late st Contact Info) Description 09/01/2012 Telephone [facility] Family [address] [address] Radha Santiago LPN Follow-up ([facility] Walk in clinic on 08/29/2012 for c/o hand pain DX of Cellulitis) Social History Tobacco Use Types Packs/Day Years [...] encounter Miscellaneous Notes * Telephone Encounter - Radha Santiago LPN - 09/01/2012 1129 EDT I left a message on patients answering machine that I was calling to check to see how she was doingregarding her 08/29/12 [facility] walk in clinic visit , and to have her call for a follow up appointment with Dr. Neal. I instructed patient to revisit the ED is symptoms worsen and/or call for anappointment. documented in this encounter Plan of Treatment Not on file documented as of this encounter Visit Diagnoses Not on filedocumented in this encounter Care Teams Fire Prevention Officer Relationship Specialty Start Date End Date Tamara Neal MD [address] [place] [phone] PCP - General 09/13/08 03/18/13 documented as of this encounter
--- OUTSIDE RECORDS SUMMARY | 2024-02-14 15:24 | XMS_ITS | Encounter Summary ---
Author Organization [facility] Address [address] [place] [address] Care Team Providers Care Net Sql Developer Name Role Phone Tamara Neal MD Primary Care Provider + Reason for Visit * Reason Onset Date Comments Medications Refill 08/27/2012 Encounter Details Date Type Department Care Team (Late st Contact Info) Description 08/27/2012 Refill [facility] Family Medicine [address] [address] Tamara Neal MD [address] [place] [phone] Medications Refill Social History Tobacco Use Types [...] encounter Miscellaneous Notes * Telephone Encounter - Nadine Stewart - 08/28/2012 1636 EDT Spoke with [facility], they have the script there, will refill for patient. * Telephone Encounter - Mikki Peñaloza - 08/27/2012 1055 EDT Name of Medication Celexa Last Refill Date 06.17.12 Last Visit Date 08.22.12 Next Visit Date 09.09.12 Is patient out of medication? Unknown 06.17.12 a script was approved but was done as no print and not sent to the pharmacy. documented in this encounter Plan of Treatment Not on file documented as of this encounter Visit Diagnoses Not on filedocumented in this encounter Care Teams Net Sql Developer Relationship Specialty Start Date End Date Tamara Neal MD [address] [place] [phone] PCP - General 09/13/08 03/18/13 documented as of this encounter
--- OUTSIDE RECORDS SUMMARY | 2024-02-14 15:24 | XMS_ITS | Encounter Summary ---
Author Organization [facility] Address [address] [place] [address] Care Team Providers Care Forestry Fire Aide Name Role Phone Tamara Neal MD Primary Care Provider + Encounter Details Date Type Department Care Team (Late st Contact Info) Description 11/21/2012 Results Only [facility] [address] [place] [address] Charlee Haider I, ASBESTOS SIDING MECHANIC [address] [place] [phone] Social History Tobacco Use Types Packs/Day Years [...] on file documented as of this encounter Procedures Procedure Name Priority Date/Time Associated Diagnosis Comments BASIC METABOLIC PANEL (BMP) Routine 11/21/2012 16:07 EDT URINE [id number] NE RATIO (ACR) Routine 11/21/2012 15:01 EDT documented in this encounter Results * (ABNORMAL) BASIC METABOLIC PANEL (11/21/2012 16:07 EDT) Sodium 138 136 - 145 mEq/L [facility] Potassium 4.0 3.5 - 5.0 mEq/L [facility] Chloride 103 96 - 110 mEq/L [facility] CO2 21(L) 24 - 32 mEq/L [facility] BUN 11 10 - 26 mg/dl [facility] Creatinine 0.59 0.52 - 1.04 mg/dl [facility] GFR, Calculated >60 >60 ml/min/1.7 3m2 [facility] Calcium 10.1 8.5 - 10.5 mg/dl [facility] Calculated Calcium 9.8 8.5 - 10.5 mg/dl [facility] Glucose, Serum 157(H) 70 - 100 mg/dl [facility] Fasting? No [facility] 11/21/2012 16:0 7 EDT 11/21/2012 19:53 EDT Charlee Haider ASBESTOS SIDING MECHANIC CHEMISTRY & BLOOD MA S ORDERABLES Performing Organization Address [facility] Co de Phone Number [facility] [address] [place] [address] * ALBUMIN, URINE (11/21/2012 15:01 EDT) Creatinine, Urn [place] 36.0 mg/dl [facility] Ur Albumin mg/dl <0.2 mg/dl [facility] Ur Alb ug/mg Crea Unable to calculate ug/mg Crea result. ug/mg Crea [facility] Comment: Normal: <30 ug/mg creat High: 30-300 ug/mg creat Very high and nephrotic: >300 ug/mg creat 11/21/2012 15:0 1 EDT 11/22/2012 15:40 EDT Charlee I Kathiai ASBESTOS SIDING MECHANIC CHEMISTRY & BLOOD GA S ORDERABLES Performing Organization Address [facility] Co de Phone Number [facility] [address] [place] [address] documented in this encounter Visit Diagnoses Not on filedocumented in this encounter Care Teams Forestry Fire Aide Relationship Specialty Start Date End Date Tamara Neal MD [address] [place] [phone] PCP - General 09/13/08 03/18/13 documented as of this encounter
--- OUTSIDE RECORDS SUMMARY | 2024-02-14 15:24 | XMS_ITS | Encounter Summary ---
Author Organization [facility] Address [address] [place] [address] Care Team Providers Care Combat Control Manager Name Role Phone Tamara Neal MD Primary Care Provider + Reason for Visit * Reason Onset Date Comments Facial Pain 09/30/2012 Encounter Details Date Type Department Care Team (Late st Contact Info) Description 09/30/2012 Telephone [facility] Family Medicine - [address] [phone] Tamara Neal MD [address] [place] [phone] Facial Pain Social History Tobacco Use Types Packs/Day Years [...] on file documented as of this encounter Ordered Prescriptions Prescription Sig Dispensed Refills Start Date End Da te doxycycline (VIBRA-TABS) 100 mg tablet Take 1 Tab by mouth 2 times daily. 28 Tab 0 09/30/2012 05/01/2013 documented in this encounter Miscellaneous Notes * Telephone Encounter - Santa Guerrero RN - 10/02/2012 8687 EDT Since the patient has not returned our calls a message was left on her voicemail with Dr. Neal'sresponse from 09/30 @ 12:45. ADvised to call with ?'s or concerns * Telephone Encounter - Awilda Fang RN - 09/30/2012 1247 EDT Left message for pt to call back. * Telephone Encounter - Tamara Neal MD - 09/30/2012 1245 EDT Stop AMOX and start Doxycycline 100 mg BID for 14 days * Telephone Encounter - Santa Guerrero RN - 09/30/2012 1210 EDT Guzman states the amoxicillin is not working for my sinus infection. Pt C/o headache, sinus pressure, constant runny nose- clear to yellow and can't breathe out of her nose. No fever. Has used Sudafed for the ear popping. Is using the Netti pot and nasal spray without relief. Is requesting a different antibiotic. * Telephone Encounter - Almita Ponce - 09/30/2012 1152 EDT Patient calling to state that the Amoxicillin is not working for her sinus infection. documented in this encounter Plan of Treatment Not on file documented as of this encounter Visit Diagnoses Not on filedocumented in this encounter Discontinued Medications Medication Sig Discontinue Reason Start Date End Da te amoxicillin (AMOXIL) 875 mg tablet Take 1 Tab by mouth 2 times daily for 14 days. 09/24/2012 09/30/2012 documented as of this encounter Care Teams Combat Control Manager Relationship Specialty Start Date End Date Tamara Neal MD [address] [place] [phone] PCP - General 09/13/08 03/18/13 documented as of this encounter
--- OUTSIDE RECORDS SUMMARY | 2024-02-14 15:24 | XMS_ITS | Encounter Summary ---
Author Organization [facility] Address [address] [place] [address] Care Team Providers Care Gasateria Attendant Name Role Phone Tamara Neal MD Primary Care Provider + Encounter Details Date Type Department Care Team (Latest Contact Info) Description 11/21/2012 13:30 EDT - 11/21/2012 22:00 EDT Hospital Encounter [facility] [address] [place] [address] Charlee Haider NP [address] [place] [phone] Discharge Disposition: Home or Self Care Social [...] mcg/actuation nasal sprayIndications:Pelon rgic rhinitis Instill 1 [place] into both nostrils daily. 1 Bottle 2 [...] on filedocumented in this encounter Care Teams Gasateria Attendant Relationship Specialty Start Date End Date Tamara Neal MD [address] [place] [phone] PCP - General 09/13/08 03/18/13 documented as of this encounter
--- OUTSIDE RECORDS SUMMARY | 2024-02-14 15:24 | XMS_ITS | Encounter Summary ---
Author Organization [facility] Address [address] [place] [address] Care Team Providers Care Resource Paraprofessional Name Role Phone Tamara Neal MD Primary Care Provider + Reason for Visit * Reason Onset Date Comments Results 09/17/2012 Encounter Details Date Type Department Care Team (Late st Contact Info) Description 09/17/2012 Telephone [facility] Family Medicine - [address] [address] Tamara Neal MD [address] [place] [phone] Results Social History Tobacco Use Types Packs/Day [...] Telephone Encounter - Santa Guerrero RN - 09/18/2012 1056 EDT Guzman was advised of Dr. Neal's response from 09/18 @ 6:18. States Dilaudid is morphine. Advised that Dilaudid is hydromorphone a morphine derivative and shows up as so in her urine. the patientstates What am I suppose to do, I have been on this medication for 7 years. office visit 09/24 @ 12:30. The patient indicates understanding of these issues and agrees with the plan. * Telephone Encounter - Awilda Fang RN - 09/18/2012 0835 EDT Left message for pt to call back. * Telephone Encounter - Tamara Neal MD - 09/18/2012 0618 EDT She will NOT be getting her Rx next week REcent urine testing showed inappropriate results No Dilaudid was present And MORPHINE containing substance was in her urine I cannot prescribe narcotics or any controlled substances based on these results * Telephone Encounter - Mikki Peñaloza - 09/17/2012 1531 EDT Pt calling to find out if her script for hydromorphone will be ready to pickup driver, due on Saturday. * Telephone Encounter - Tamara Neal MD - 09/17/2012 1340 EDT Recent urine opiate confirmation testing was NOT appropriate and had MORPHINE in it (not prescribed) I can NO LONGER prescribe controlled substances for her I left message on her cell that i called but could not actually reach her directly documented in this encounter Plan of Treatment Not on file documented as of this encounter Visit Diagnoses Not on filedocumented in this encounter Discontinued Medications Medication Sig Discontinue Reason Start Date End Da te HYDROmorphone (DILAUDID) 8 mg tablet Take 0.5-1 Tabs by mouth 3 times daily as needed for Pain for 14 days. No more than 2.5 TABS per day Non-compliance 09/23/2012 09/17/2012 documented as of this encounter Care Teams Resource Paraprofessional Relationship Specialty Start Date End Date Tamara Neal MD [address] [place] [phone] PCP - General 09/13/08 03/18/13 documented as of this encounter
--- OUTSIDE RECORDS SUMMARY | 2024-02-14 15:24 | XMS_ITS | Encounter Summary ---
Author Organization [facility] Address [address] [place] [address] Care Team Providers Care Power Operator Name Role Phone Tamara Neal MD Primary Care Provider + Reason for Visit * Reason Comments Hip Pain Left Encounter Details Date Type Department Care Team (Late st Contact Info) Description 08/12/2012 16:15 EDT Office Visit [facility] [address] [address] Tamara Neal MD [address] [place] [address] [phone] Chronic pain syndrome (Primary Dx); Left hip pain; Type II diabetes mellitus without mention of complication; Hyperlipidemia Social History Tobacco Use Types Packs/Day Years [...] Sign Reading Time Taken Comments Blood Pressure 150/86 08/12/2012 1618 EDT Pulse 100 08/12/2012 1618 EDT Temperature 36.4 ??C (97.6 ??F) 08/12/2012 1618 EDT Respiratory Rate - - Oxygen Saturation - - Inhaled Oxygen Concentration - - Weight 88.9 kg (196 lb) 08/12/2012 1618 EDT With shoes Height - - Body Mass Index 38.28 07/02/2012 1338 EST documented in this encounter Ordered Prescriptions Prescription Sig Dispensed Refills Start Date End Da te HYDROmorphone (DILAUDID) 8 mg tablet Take 0.5-1 Tabs by mouth 3 times daily as needed for Pain for 14 days. No more than 2.5 TABS per day 30 Each 0 08/26/2012 09/09/2012 HYDROmorphone (DILAUDID) 8 mg tablet Take 0.5-1 Tabs by mouth 3 times daily as needed for Pain for 14 days. No more than 2.5 TABS per day 30 Each 0 08/12/2012 08/12/2012 cyclobenzaprine (FLEXERIL) 10 mg tablet Take 1 Tab by mouth 3 times daily as needed for Muscle Spasms. 90 Each 1 08/12/2012 12/31/2013 pioglitazone (ACTOS) 30 mg tablet Take 1 Tab by mouth daily. 90 Tab 3 08/12/2012 05/01/2013 ramelteon (ROZEREM) 8 mg tablet Take 1 Tab by mouth daily. 30 Each 5 08/12/2012 05/01/2013 simvastatin (ZOCOR) 20 mg tablet Take 1 Tab by mouth every evening. 90 Tab 3 08/12/2012 12/31/2013 traZODone (DESYREL) 100 mg tabletIndications:Chronic pain syndrome Take 1.5 Tabs by mouth at bedtime. 90 Tab 3 08/12/2012 05/19/2013 documented in this encounter Progress Notes * Tamara Neal MD - 08/14/2012 1116 EDT Subjective: Patient ID: Guzman Jean is an 37 y.o. female. Chief Complaint Patient presents with ??? Hip Pain Left HPI Here for f/u chronic left hip pain Still waiting to hear from Dr. Moffett about next step after hip injection Not sure if she has been proactive with this and is pursuing calling him Weaning down VERY slowly Dilaudid use to 8 mg TABS 2.3 - 3 TABS daily This was hard for her to do She does NOT want to decrease further She mentions she tried Cymbalta, Neurontin and Lyrica in past (with Dr. Mcdonald from [facility], private group) SHe notes increased anxiety, requesting Rx to help calm her down Already using Celexa 40 mg and Trazodone 100 mg at bedtime Not sleeping well She wonders about Amitriptyline I am not sure this is safe option (h/O suicide gestures with insulin overuse in recent past) Also on SSRI and would risk prolonged QT In counseling with Rebecca Nam from [place] Would like me to speak to her therapist Patient Active Problem List Diagnoses ??? Routine history and physical examination of adult ??? Type II diabetes mellitus without mention of complication ??? Polycystic ovaries ??? Contraceptive management ??? Insertion of (intrauterine) contraceptive device ??? Left buttock pain ??? Left hip pain ??? Low back pain ??? Pain of left thigh ??? Hyperlipidemia ??? Brachial plexus lesions ??? Shoulder pain ??? Pain in joint, pelvic region and thigh Past Medical History Diagnosis Date ??? Type [...] 09/04/2011 ??? Hip pain ??? High cholesterol Current Outpatient Prescriptions on File Prior to Visit Medication Sig Dispense Refill ??? HYDROmorphone (DILAUDID) 8 mg tablet Take 0.5-1 Tabs by mouth 3 times daily as needed for Pain for 14 days. No more than 2.5 TABS per day 30 Each 0 ??? insulin glargine (LANTUS) 100 unit/mL injection 14 units at bedtime 1 Vial 0 ??? citalopram (CELEXA) 40 mg tablet Take 0.5 Tabs by mouth daily. 90 Each 0 ??? naproxen (NAPROSYN) 500 mg tablet Take 1 Tab by mouth 2 times daily with breakfast and dinner. 60 Each 2 ??? metformin (GLUCOPHAGE) 1,000 mg tablet Take 1 Tab by mouth 2 times daily. 180 Each 3 ??? albuterol (PROVENTIL HFA, VENTOLIN HFA) 90 mcg/actuation inhaler Inhale 2 Puffs as directed every 4 hours as needed for Wheezing. 1 Inhaler 2 ??? APPLE CIDER VINEGAR ORAL Take 1 Tab by mouth daily. ??? fluticasone (FLONASE) 50 mcg/Actuation nasal spray 1 [place] by Nasal route daily. 1 Bottle 2 ??? levonorgestrel (MIRENA) 20 mcg/24 hr IUD 1 Each by Intrauterine route once. 08/26/2008 ??? ibuprofen (MOTRIN) 200 mg tablet Take 3 Tabs by mouth every 6 hours as needed. ??? acetaminophen (TYLENOL) 500 mg tablet Take 2 Tabs by mouth every 4 hours as needed. No Known Allergies Social History Substance Use Topics ??? Smoking status: Former Smoker -- 1.0 packs/day for 5 years Types: Cigarettes Quit date: 08/23/2007 ??? Smokeless tobacco: Never Used ??? Alcohol Use: No ROS - See HPI Objective: BP 150/86 Pulse 100 Temp(Src) 36.4 ??C (97.6 ??F) (Oral) Wt 88.905 kg (196 lb) Physical Exam Constitutional: She appears well-developed and well-nourished. No distress. HENT: Head: Normocephalic. Eyes: Conjunctivae are normal. No scleral icterus. Neurological: She is alert. Psychiatric: She has a normal mood and affect. Her behavior is normal. Assessment: Plan: Guzman was seen today for hip pain. Diagnoses and associated orders for this visit: Chronic pain syndrome from Left hip pain TRying to gradually wean Dilaudid, now to 2.5 - 3 tabs daily She is quite reluctant to wean more, barely able to make it as it is now Has not yet heard from DR. Betina thomas step (after injection last month) Continue 2 week Rx, for 2-2.5 TABS most days, occ 3 tabs REcent UD6 and opiate conf ok, unknown amount expect in urine for hydromorphone Her depression is also issue She is in counseling with Rebecca Nam at [place]. I need to touch bases with her therapist Ideally NO BENOZOS for anxiety as already some concerns with narcotics When I mention adding neuropathic pain RX such as Neurontin, Lyrica or Cymbalta she quickly claims has tried and they did not help (she vaguely remember using them from her [facility] physician Dr. Mcdonald,although I do not see from his records back in 2009 that she used these RX She mentions TCA (Amitriptyline) but with SSRI and fairly recent suicide gesture with insulin I am reluctant to use this option - traZODone (DESYREL) 100 mg tablet; Take 1.5 Tabs by mouth at bedtime, this is increased dose Type ii diabetes mellitus without mention of complication On ACTOS, Metformin and Lantus HgA1C in May 05.9 Need to repeat HgA1C - Comprehensive Metabolic Panel (CMP) (future); Future - Hemoglobin A1c (future); Future Hyperlipidemia Has been at goal on Zocor 20 mg Due for FLP later next month - Comprehensive Metabolic Panel (CMP) (future); Future - Lipid Profile (Includes Cholesterol, Triglycerides, HDL, LDL) (future); Future Other Orders - simvastatin (ZOCOR) 20 mg tablet; Take 1 Tab by mouth every evening. - ramelteon (ROZEREM) 8 mg tablet; Take 1 Tab by mouth daily. - pioglitazone (ACTOS) 30 mg tablet; Take 1 Tab by mouth daily. - cyclobenzaprine (FLEXERIL) 10 mg tablet; Take 1 Tab by mouth 3 times daily as needed for Muscle Spasms. - Discontinue: HYDROmorphone (DILAUDID) 8 mg tablet; Take 0.5-1 Tabs by mouth 3 times daily as needed for Pain for 14 days. No more than 2.5 TABS per day - HYDROmorphone (DILAUDID) 8 mg tablet; Take 0.5-1 Tabs by mouth 3 times daily as needed for Pain for 14 days. No more than 2.5 TABS per day Return in about 4 weeks (around 09/09/2012), or if symptoms worsen or fail to improve, for ROV. documented in this encounter Plan of Treatment Not on file documented as of this encounter Visit Diagnoses Diagnosis Chronic pain syndrome- Primary Left hip pain Pain in joint, pelvic region and thigh Type II diabetes mellitus without mention of complication Type II or unspecified type diabetes mellitus without mention of complication, not stated as uncontrolled Hyperlipidemia Other and unspecified hyperlipidemia documented in this encounter Discontinued Medications Medication Sig Discontinue Reason Start Date End Da te buPROPion (WELLBUTRIN SR) 150 mg SR tablet Take by mouth one tablet daily for first three days, then one tablet twice daily for 7-12 weeks. 06/17/2012 08/12/2012 trazodone (DESYREL) 100 mg tabletIndications:Chroni c pain syndrome Take 1.5 Tabs by mouth at bedtime. Reorder 12/25/2011 08/12/2012 simvastatin (ZOCOR) 20 mg tablet Take 1 Tab by mouth every evening. Reorder 09/04/2011 08/12/2012 ramelteon (ROZEREM) 8 mg tablet Take 1 Tab by mouth daily. Reorder 10/17/2011 08/12/2012 pioglitazone (ACTOS) 30 mg tablet Take 1 Tab by mouth daily. Reorder 12/12/2010 08/12/2012 cyclobenzaprine (FLEXERIL) 10 mg tablet Take 1 Tab by mouth 3 times daily as needed for Muscle Spasms. Reorder 03/18/2012 08/12/2012 HYDROmorphone (DILAUDID) 8 mg tablet Take 0.5-1 Tabs by mouth 3 times daily as needed for Pain for 2 days. No more than 2.5 TABS per day 08/10/2012 08/12/2012 HYDROmorphone (DILAUDID) 8 mg tablet Take 0.5-1 Tabs by mouth 3 times daily as needed for Pain for 14 days. No more than 2.5 TABS per day Reorder 08/12/2012 08/12/2012 documented as of this encounter Care Teams Power Operator Relationship Specialty Start Date End Date Tamara Neal MD [address] [place] [address] [phone] PCP - General 09/13/08 03/18/13 documented as of this encounter
--- OUTSIDE RECORDS SUMMARY | 2024-02-14 15:24 | XMS_ITS | Encounter Summary ---
Author Organization [facility] Address [address] [place] [address] Care Team Providers Care Due Diligence Coordinator Name Role Phone Tamara Neal MD Primary Care Provider + Encounter Details Date Type Department Care Team (Late st Contact Info) Description 09/03/2012 14:01 EDT - 09/03/2012 23:59 EDT Hospital Encounter [facility] - [address] [address] Pilar Curry MD [address] [facility] [address] [place] [phone] Discharge Disposition: Home or Self Care Social [...] Take 1 Tab by mouth daily. 12/31/2013 citalopram (CELEXA) 40 mg tablet Take 0.5 Tabs by mouth daily. 90 Each 0 06/17/2012 09/24/2012 cyclobenzaprine (FLEXERIL) 10 mg tablet Take 1 Tab by mouth 3 times daily as needed for Muscle Spasms. 90 Each 1 08/12/2012 12/31/2013 fluticasone (FLONASE) 50 mcg/Actuation nasal sprayIndications:Pelon rgic rhinitis 1 [place] by Nasal route daily. 1 Bottle 2 08/01/2010 09/24/2012 HYDROmorphone (DILAUDID) 8 mg tablet Take 0.5-1 Tabs by mouth 3 times daily as needed for Pain for 14 days. No more than 2.5 TABS per day 30 Each 0 08/26/2012 09/09/2012 ibuprofen (MOTRIN) 200 mg tablet Take 3 [...] Code Departure Means Destination Home or Self Group Home documented in this encounter Miscellaneous Notes * Scanned Note-Null - APPRENTICE ELECTRICIAN, SCAN 2 - 11/05/2012 0841 EDT documented in this encounter Plan of Treatment Not on file documented as of this encounter Visit Diagnoses Not on filedocumented in this encounter Care Teams Due Diligence Coordinator Relationship Specialty Start Date End Date Tamara Neal MD [address] [place] [phone] PCP - General 09/13/08 03/18/13 documented as of this encounter
--- OUTSIDE RECORDS SUMMARY | 2024-02-14 15:24 | XMS_ITS | Encounter Summary ---
Author Organization [facility] Address [address] [place] [address] Care Team Providers Care Book Store Associate Name Role Phone Tamara Neal MD Primary Care Provider + Reason for Visit * Reason Onset Date Comments Follow-up 08/14/2012 Encounter Details Date Type Department Care Team (Late st Contact Info) Description 08/14/2012 Telephone [facility] Family Medicine [address] [phone] Santa Guerrero, RN Follow-up Social History Tobacco Use Types Packs/Day [...] Telephone Encounter - Santa Guerrero RN - 08/14/2012 1540 EDT Rebecca Nam from [place] called, states I saw Ryan on 08/12. She was not doing well. I referred to Marky walkereapoli many times but she kept refusing due to work and family. She has quit her job and has finally agreed to go. Her anxiety is worse and she still has suicidal ideations. If Dr. Neal would like to speak to me she can call me at [phone] Work And [phone] Cell. documented in this encounter Plan of Treatment Not on file documented as of this encounter Visit Diagnoses Not on filedocumented in this encounter Care Teams Book Store Associate Relationship Specialty Start Date End Date Tamara Neal MD [address] [place] [phone] PCP - General 09/13/08 03/18/13 documented as of this encounter
--- OUTSIDE RECORDS SUMMARY | 2024-02-14 15:24 | XMS_ITS | Encounter Summary ---
Author Organization [facility] Address [address] [place] [address] Care Team Providers Care Scooper Name Role Phone Tamara Neal MD Primary Care Provider + Reason for Visit * Reason Onset Date Comments Medication Management 08/04/2012 Encounter Details Date Type Department Care Team (Late st Contact Info) Description 08/04/2012 Telephone [facility] Family Medicine [address] [phone] Tamara Neal MD [address] [place] [phone] Medication Management Social History Tobacco Use Types [...] No more than 2.5 TABS per day 6 Each 0 08/10/2012 08/12/2012 documented in this encounter Miscellaneous Notes * Telephone Encounter - Victoriano Lewis - 08/05/2012 0650 EDT Pt made aware that prescription was written to cover the 2 day difference until appointment. Understanding verbalized. * Telephone Encounter - Tamara Neal MD - 08/05/2012 1432 EDT #6 TABS to cover the 2 day difference until appt * Telephone Encounter - Almita Ponce - 08/04/2012 1104 EDT Patient calling, states she will be due for her Hydromorphone on Saturday, but her appointment is notuntil next Saturday. Patient would like to know if it is going to be written so she can pick it up before the weekend. documented in this encounter Plan of Treatment Not on file documented as of this encounter Visit Diagnoses Not on filedocumented in this encounter Discontinued Medications Medication Sig Discontinue Reason Start Date End Da te HYDROmorphone (DILAUDID) 8 mg tablet Take 0.5-1 Tabs by mouth 3 times daily as needed for Pain for 14 days. No more than 2.5 TABS per day Reorder 07/27/2012 08/04/2012 documented as of this encounter Care Teams Scooper Relationship Specialty Start Date End Date Tamara Neal MD [address] [place] [phone] PCP - General 09/13/08 03/18/13 documented as of this encounter
--- OUTSIDE RECORDS SUMMARY | 2024-02-14 15:24 | XMS_ITS | Encounter Summary ---
Author Organization [facility] Address [address] [place] [address] Care Team Providers Care Percolator Operator Name Role Phone Annette Sidhu APRN Primary Care Provider [phone] Encounter Details Date Type Department Care Team ([facility] Contact Info) Description 04/14/2013 Phlebotomy Only [facility] [address] [place] [address] Director Medicare Sales, Outpatient Social History Tobacco Use Types [...] on filedocumented in this encounter Care Teams Percolator Operator Relationship Specialty Start Date End Date Annette Sidhu APRN [address] [place] [address] [phone] PCP - General 03/19/13 07/06/19 documented as of this encounter
--- OUTSIDE RECORDS SUMMARY | 2024-02-14 15:24 | XMS_ITS | Encounter Summary ---
Author Organization [facility] Address [address] [place] [address] Care Team Providers Care Before School Babysitter Name Role Phone Tamara Neal MD Primary Care Provider + Annette Sidhu APRN Primary Care Provider [phone] Encounter Details Date Type Department Care Team (Late st Contact Info) Description 09/12/2012 Orders Only [facility] Family Medicine [address] [address] Tamara Neal MD [address] [place] [address] [phone] Chronic pain syndrome (Primary Dx) Social History Tobacco Use Types [...] Component Type 2 diabetes mellitus ([facility]) 8.7(07/07/2015 5:05 EST) No Annmarie Vigil documented as of this encounter Procedures Procedure Name Priority Date/Time Associated Diagnosis Comments OUTPATIENT ADD-ON Routine 09/12/2012 13: 34 EDT Chronic pain syndrome documented in this encounter Results * OUTPATIENT ADD-ON (09/12/2012 13:34 EDT) Tests to be added Sample already at [place] Comment: [id number], 6 MAU TESTING FOR HEROIN [place] TEST ID [id number] Corrected on 09/12 AT 1419: [place] [address], 6 MAU TESTING FOR HEROIN Diagnosis Code SEE PRISM DOS 5.14.13 [facility] Number for problems NUNO [id number] [facility] Accession number [id number] 2.1 ML URINE SOR CPT CODE 02242 [facility] Acknowledge ABP WAITING CONFIRMATION FROM [place] SPOKE TO NATHANAEL @1415 09.12.12 LR [facility] Comment:CONF RECV'D TO ADD T EST 6MAMU 09/15 STB 0805 09/12/2012 13:3 4 EDT 09/12/2012 14:11 EDT Tamara Neal MD HEMATOLOGY & PF4 ORDERABLES [facility] [address] [place] [address] documented in this encounter Visit Diagnoses Diagnosis Chronic pain syndrome- Primary documented in this encounter Care Teams Before School Babysitter Relationship Specialty Start Date End Date Tamara Neal MD [address] [place] [phone] PCP - General 09/13/08 03/18/13 Annette Sidhu APRN [address] [place] [address] [phone] PCP - General 03/19/13 07/06/19 documented as of this encounter
--- OUTSIDE RECORDS SUMMARY | 2024-02-14 15:24 | XMS_ITS | Encounter Summary ---
Author Organization [facility] Address [address] [place] [address] Care Team Providers Care Turning Sander Operator Name Role Phone Tamara Neal MD Primary Care Provider + Reason for Visit * Reason Onset Date Comments Anxiety 08/22/2012 Encounter Details Date Type Department Care Team (Late st Contact Info) Description 08/22/2012 Telephone [facility] Family Medicine - [address] [phone] Tamara Neal MD [address] [place] [address] [phone] Anxiety Social History Tobacco Use Types Packs/Day Years [...] encounter Miscellaneous Notes * Telephone Encounter - Eleanor Biggs LPN - 08/22/2012 1622 EDT Patient called and stated that she was unable to contact her counsellor this afternoon. Rebecca Nam Cell phone [phone]. She states that she is having bad thought, bad panic attacks. Advised to come in today to be seen. Emerita't with Dr. Doss at 4:30. documented in this encounter Plan of Treatment Not on file documented as of this encounter Visit Diagnoses Not on filedocumented in this encounter Care Teams Turning Sander Operator Relationship Specialty Start Date End Date Tamara Neal MD [address] [place] [phone] PCP - General 09/13/08 03/18/13 documented as of this encounter
--- OUTSIDE RECORDS SUMMARY | 2024-02-14 15:24 | XMS_ITS | Encounter Summary ---
Author Organization [facility] Address [address] [place] [address] Care Team Providers Care Ip/Mosaic Technician Name Role Phone Tamara Neal MD Primary Care Provider + Reason for Visit * Reason Comments Suicidal Pt states she saw PC P today for anxiety, depression, SI. Encounter Details Date Type Department Care Team (Late st Contact Info) Description 08/22/2012 18:04 EDT - 08/22/2012 23:16 EDT Emergency [facility] Emergency Department - [address] [place] [address] [place] [address] Eros Jane, PA-C [address] [place], [place] [address] Emergency, MD Kamila Depressed state (Primary Dx) Discharge Disposition: Home or Self [...] Sign Reading Time Taken Comments Blood Pressure 115/83 08/22/2012 2315 EDT Pulse 88 08/22/2012 2315 EDT Temperature 36.2 ??C (97.2 ??F) 08/22/2012 1810 EDT Respiratory Rate 16 08/22/2012 2315 EDT Oxygen Saturation 97% 08/22/2012 1810 EDT Inhaled Oxygen Concentration - - Weight 88 kg (194 lb) 08/22/2012 1810 EDT Height - - Body Mass Index 37.89 07/02/2012 1338 EST documented in this encounter Discharge Instructions * Discharge Instructions* Regan Jane - 08/22/2012 22:56 EDT You have been referred to the [facility] for outpatient psychiatric treatment. They will call you to set up an intake appointment. If they have not called you by the middle of next week, please call them at: [phone] In the meantime: - If you have suicidal thoughts please return to the emergency department or you may call [facility] at [phone] - Follow-up with your PCP and outpatient therapist as needed - Do not use drugs or alcohol as this can effect your ability to make clear decisions and will increase your risk of suicide documented in this encounter Medications at Time [...] 50 mcg/Actuation nasal sprayIndications:Pelon rgic rhinitis 1 [place] by Nasal route daily. 1 Bottle 2 [...] or Self Care documented in this encounter Consult Notes * Masood Oviedo MD - 08/22/2012 2336 EDT ED Psychiatry Consult Date: 08/22/12 CC: I'm upset, anxious, depressed, and I can't sleep HPI: Pt is a 37 y.o. woman with a history of depression with one past suicide attempt presenting tothe ED with complaints of depression, anxiety, and trouble sleeping. Pt reports that increasing stress at work exacerbating her already low mood and high level of anxiety as lead to increasing suicidal ideation. 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 Today on the way home from work after having thoughts of harming herself, she called her PCP, followedby her counselor, and they told her that due to SI she needed to go to the ED. She told her counselor felt comfortable driving to the ED and drove by herself. The pt states that her depression dates back to high school. She describes it as an agitated depression in which she has great mood liability, moving from angry to tearful in rapid succession. Pt states that she is obsessive-compulsive and that trivial matters can set her off. Pt also describes ahistory nightmares and poor sleep. At night the pt takes a combination of prescribed trazadone, remeron, muscle relaxants and tylenol PM and is still unable to sleep. The pt's prior suicide attempt occured one year ago. Acute stressors at that time included a divorce, a breakup with a boyfriend and a falling out with her friend. She took 100mg of the insulin that is prescribed to her for diabetes. She texted her boyfriend and her father who lives nearby found her. Protective factors include that she loves her children, that she is foward thinking with regard to a treatment plan, and her job. Pt plans to return home where she will not be alone (roomate and boyfriend will be there). Pt does not have access to a gun. Pt states that does not feel that she will harm herself but that if she did she would call crisis, her therapist and/or return to the ED. Current Medications: Hydromorphone 2mg, Insulin, Trazadone, Remeron, Muscle relaxants Past psychiatric History: Pt has had depression since high school. Pt states that her therapist suggested she has PTSD Past psychiatric medications: Celexa (current), Wellbutrin PMH: Diabetes, HTN, and chronic pain in her hip and back. For the chronic pain she prescribed 2mg of hydromorophone. This is a result of a taper from 8mg. Pt states that she only uses pain medications as prescribed. The pt states that the taper may or may not be contributory to her mood and poor sleep. Family Psych History: No history of suicide in the family. MSE: Pt is a 37 yo woman that appears stated age with short dyed blonde hair and glasses lying on astretcher wrapped up in a hospital blanket. The pt is cooperative with good eye contact. The pt displays no abnormal movement. Pt speech is of normal rate, rhythm and prosody. The pt describes a moodas anxious and depressed with congruent restricted affect. Thought process are linear and goal directed. Thought content includes perseveration about her job. Pt does not endorse any delusions or hallucinations. Pt endorses passive SI, NO HI. Judgement and attention are intact. Insight into illness is good. ASSESSMENT: Patient is a moderate risk for suicide attempt and has been offered a bed at [facility] with possible admission to [facility] psychiatry on Saturday but she has declined. She is not a high risk and cannot be held involuntarily because she states she is safe to return home, has obligations to children, denies current SI, does not have history of impulsive behavior, states she will return to the EDif she has SI, is future-oriented (as evidenced by plan to spend time with family tomorrow and seeking help at [facility]) and endorses hope for the future. PLAN: - Will refer to [facility]. Will defer decision for IOP versus [facility] to [facility] intake. - In the meantime patient has been given # for Crisis and instructed to follow- up with PCP/current therapist or return to ED if SI returns The above was reviewed with my attending, Dr. Davis. Masood Oviedo MD documented in this encounter ED Notes * Jasper Laws RN - 08/22/2012 2318 EDT Pt d/c ambulatory with a normal gait and in NAD. Pt d/c with contact numbers. Pt provided with instructions. Resp unlabored. Skin warm and dry. Pt AO. * Marian Christian RN - 08/22/20122237 EDT Psych resident at the bedside. * Marian Christian RN - 08/22/20122117 EDT Crisis evaluation in progress. * Marian Christian RN - 08/22/20122103 EDT Pt resting on stretcher, talking on cell phone. Pt tearful, apple juice provided to patient at her request. Bagged belongings removed from patient room and labeled. Belongings placed in dirty utilityroom. 1:1 observation continues. * Lilibeth Bailey RN - 08/22/2012 1904 EDT Patient resting comfortably on stretcher. ED provider in to speak with patient. 19:34 Crisis in with patient. * Regan Jane - 08/22/2012 1836 EDT DOS: 08/22/2012 Chief Complaint Patient presents with ??? Suicidal Pt states she saw PCP today for anxiety, depression, SI. The patient is a 37 y.o. female who presents today with Suicidal HPI Is a 37-year-old female with a history of PTSD, type 2 diabetes insulin- dependent, depression, anxiety, suicidal attempt who presents with worsening anxiety and depression. She states she is thinkingabout harming herself with overdosing on pills. She has not tried any recent suicide attempt. Denies any drug or alcohol use. Encouraged to come to ED by her psychologist,. Review of Systems Constitutional: Negative for fever and chills. HENT: Negative for neck stiffness. Eyes: Negative for visual disturbance. Respiratory: Negative for shortness of breath. Cardiovascular: Negative for chest pain. Gastrointestinal: Negative for abdominal pain. Genitourinary: Negative for dysuria. Musculoskeletal: Negative for back pain. Skin: Negative for rash. Neurological: Negative for headaches. Psychiatric/Behavioral: Positive for suicidal ideas, disturbed wake/sleep cycle, dysphoric mood anddecreased concentration. Negative for confusion and self- injury. The patient is nervous/anxious. All other systems [...] ??? High cholesterol Past Surgical History Procedure Date ??? Tonsillectomy 2000 ??? Cholecystectomy 11/25/2009 Dr. Mendez ??? section 1998,2007 times 2 No Known Allergies History Substance Use Topics ??? Smoking status: Former Smoker -- 1.0 packs/day for 5 years Types: Cigarettes Quit date: 08/23/2007 ??? Smokeless tobacco: Never Used ??? Alcohol Use: No Family History Problem Relation Age of Onset ??? Cancer Maternal Aunt breast cancer ??? Cancer Maternal Grandmother breats cancer ??? Diabetes Paternal Grandmother ??? Diabetes Paternal Grandfather Vital Signs Temp: 36.2 ??C (97.2 ??F) Temp src: Tympanic Pulse: 88 Heart Rate: 107 BPM Resp: 16 SpO2: 97 % SpCO: 8 % BP: 115/83 mmHg BP Device: BP Machine O2 Device: None (Room air) Physical Exam Nursing note and vitals reviewed. Constitutional: She is oriented to person, place, and time. She appears well- developed and well-nourished. No distress. HENT: Head: Normocephalic and atraumatic. Right Ear: External ear normal. Left Ear: External ear normal. Nose: Nose normal. Eyes: Conjunctivae normal are normal. Pupils are equal, round, and reactive to light. Right eye exhibits no discharge. Left eye exhibits no discharge. Neck: Normal range of motion. Neck supple. No tracheal deviation present. Cardiovascular: Normal rate. Pulmonary/Chest: Effort normal. No respiratory distress. Neurological: She is alert and oriented to person, place, and time. She has normal strength. No sensory deficit. Skin: Skin is warm. No rash noted. She is not diaphoretic. Psychiatric: Her behavior is normal. Her mood appears anxious. Cognition and memory are normal. Sheexhibits a depressed mood. She expresses suicidal ideation. She expresses no homicidal ideation. She expresses suicidal plans. She expresses no homicidal plans. Tearful Radiology orders: None Procedures ED Course: A medical screening exam was performed. 37-year-old female with history of psychiatric illness presents with worsening suicidality, anxiety and depression Seen and evaluated by crisis team, encouraged to followup with [facility] program. Discharge home, stable condition, safety plan in place Disposition: Discharged The patient's pain was managed to an adequate level weighing risk vs. benefit of further medications. Upon departure from the Emergency Department, the patient's pain was 0 on a zero to ten scale. Condition at departure from the Emergency Department: Good Discharge Prescriptions New Prescriptions No Discharge Prescriptions for this patient MDM Final diagnoses: Depressed state PCP: MD Haim Mcwilliams was available for supervision. 08/23/2012 1:34 * Milan Castro RN - 08/22/2012 1815 EDT Pt to FR with avionics test technician 1:1. * Milan Castro RN - 08/22/2012 1812 EDT When asked: Have you had recent thoughts of harming or killing yourself? the pt answered: Yes When asked:Have you had recent thoughts of harming or killing others? the pt answered: No When asked: Have you recently tried to harm or kill yourself? the pt answered: No * Jasper Mendoza - 08/22/2012 1809 EDT TCALL: JI CROWLEY 1975 [facility], ACTIVE SI, HX SUICIDE ATTEMPT. NOTE TAKEN BY DR ROSAS ([facility]). documented in this encounter Miscellaneous Notes * Scanned Note-Null - ICHTHYOLOGIST, SCAN 2 - 08/29/2012 1124 EDT * Scanned Note-Null - ICHTHYOLOGIST, SCAN 2 - 08/26/2012 195 EDT documented in this encounter Plan of Treatment Not on file documented as of this encounter Visit Diagnoses Diagnosis Depressed state- Primary Depressive disorder, not elsewhere classified documented in this encounter Care Teams Ip/Mosaic Technician Relationship Specialty Start Date End Date Tamara Neal MD [address] [place] [phone] PCP - General 09/13/08 03/18/13 documented as of this encounter
--- OUTSIDE RECORDS SUMMARY | 2024-02-14 15:24 | XMS_ITS | Encounter Summary ---
Author Organization [facility] Address [address] [place] [address] Care Team Providers Care Rubber Chemist Name Role Phone Tamara Neal MD Primary Care Provider + Encounter Details Date Type Department Care Team (Late st Contact Info) Description 08/01/2012 Phlebotomy Only [facility] [address] [place] [address] Preconstruction Manager, Outpatient Screening examination for pulmonary tuberculosis Social History Tobacco Use Types Packs/Day Years [...] Procedure Name Priority Date/Time Associated Diagnosis Comments QUANTIFERON TB GOLD PLUS Routine 08/01/2012 9:57 EDT Screening examination for pulmonary tuberculosis documented in this encounter Results * TB BY QUANTIFERON, B (08/01/2012 9:57 EDT) TB by QuantiFERON, B Negative IAM GONZALES TB Antigen Value 0.01 IU/mL MELLISA GONZALES Comment: (Note) This is a qualitative test. The TB antigen IU/mL value is required for documentation on certain government reporting forms (e.g., Form I-693), but this value should not be used to monitor disease progression or response to therapy. Diagnosing or excluding tuberculosis disease, and assessing the probability of LTBI, require a combination of epidemiological, historical, medical, and diagnostic findings that should be taken into account when interpreting QuantiFERON-TB results. Performed by: [facility]: [facility], [address] [place], [place] [address], Lab Dir: Roberto Kathleen III, MD 08/01/2012 9:57 EDT 08/01/2012 10:56 EDT Winston Yusuf MD CHEMISTRY & BLO OD GAS ORDERABLES [facility] [address] [place] [address] documented in this encounter Visit Diagnoses Diagnosis Screening examination for pulmonary tuberculosis documented in this encounter Care Teams Rubber Chemist Relationship Specialty Start Date End Date Tamara Neal MD [address] [place] [phone] PCP - General 09/13/08 03/18/13 documented as of this encounter
--- OUTSIDE RECORDS SUMMARY | 2024-02-14 15:24 | XMS_ITS | Encounter Summary ---
Author Organization [facility] Address [address] [place] [id number] Care Team Providers Care Rapid Extractor Operator Name Role Phone Tamara Neal MD Primary Care Provider + Reason for Visit * Reason Comments Depression Anxiety Encounter Details Date Type Department Care Team (Late st Contact Info) Description 08/22/2012 16:30 EDT Office Visit [facility] Family Medicine [address] [address] Unknown, Provider, Blanka Doss MD [address] [place] [phone] Anxiety (Primary Dx); Suicidal ideation Social History Tobacco Use Types Packs/Day Years [...] Sign Reading Time Taken Comments Blood Pressure 144/86 08/22/2012 1648 EDT Pulse 92 08/22/2012 1648 EDT Temperature - - Respiratory Rate - - Oxygen Saturation - - Inhaled Oxygen Concentration - - Weight 87.5 kg (193 lb) 08/22/2012 1648 EDT Height - - Body Mass Index 37.69 07/02/2012 1338 EST documented in this encounter Progress Notes * Agus Bernard MD - 08/25/2012 0753 EDT Attestation statement for office patient not seen by attending: I discussed the patient with the resident/fellow at the time of the visit and agree with the findings and the plan of care documented in the resident's/fellow's note. Agus Bernard MD Family Medicine Attending 08/25/2012 7:53 * Blanka Doss MD - 08/22/2012 1658 EDT Subjective: Patient ID: Guzman Jean is an 37 y.o. female. Chief Complaint Patient presents with ??? Depression ??? Anxiety HPI Pt is a 37 y/o woman w/PMHx of Anxiety, PTSD, depression and prior suicide attempt presenting with cc of severe anxiety and bad thoughts. 1) Anxiety/Suicidal thoughts: -Has been very severe for last several months, last few weeks particularly worse -Today felt completely unable to cope, very anxious, had some bad thoughts. Describes bad thoughts as wanting to end things, thinking about hurting myself. She denies any clear plan though statesthat she does have insulin in her house and 1 year ago had a suicide attempt in which she injected 100 units of insulin into her thigh -She called her counselor: Rebecca Hyman) today who recommended trying meditation, listening to a medication CD and going for a walk which the pt did and did not help. -Called our office ~ 4pm today very anxious, then called back with some suicidal thoughts. Arrived at our office at ~ 16:45 (a care and concern call was made to [place] [employer] due to how long the drivefrom [place] took) -Pt in office states that if left alone at home tonight might commit suicide or harm herself, she lives presently with her boyfriend who she describes an unsafe relationship right now and a roommate whom she describes as a looser -The pt also states she went to the ED a few weeks ago with similar thoughts [facility] -No current substance abuse except for narcotics prescribed by this office -Currently on Celexa, same dose for a while -Mother of 2, currently still but in the process of a divorce -we called the pt's Step Mother today while she was in the room who stated that she was unable to drive the pt to the hospital and didn't know if someone else could -The pt stated again that she could and would drive herself to the hospital. We then called the pt's step mother again and the pt promised the step mom and myself that she will drive herself to the hospital. Patient Active Problem List Diagnoses ??? Routine [...] to Visit Medication Sig Dispense Refill ??? traZODone (DESYREL) 100 mg tablet Take 1.5 Tabs by mouth at bedtime. 90 Tab 3 ??? simvastatin (ZOCOR) 20 mg tablet Take 1 Tab by mouth every evening. 90 Tab 3 ??? ramelteon (ROZEREM) 8 mg tablet Take 1 Tab by mouth daily. 30 Each 5 ??? pioglitazone (ACTOS) 30 mg tablet Take 1 Tab by mouth daily. 90 Tab 3 ??? cyclobenzaprine (FLEXERIL) 10 mg tablet Take 1 Tab by mouth 3 times daily as needed for Muscle Spasms. 90 Each 1 ??? HYDROmorphone (DILAUDID) 8 mg tablet Take [...] fluticasone (FLONASE) 50 mcg/Actuation nasal spray 1 [place] by Nasal route daily. 1 Bottle 2 [...] tobacco: Never Used ??? Alcohol Use: No Review of Systems Constitutional: Negative. HENT: Negative. Eyes: Negative. Respiratory: Negative. Cardiovascular: Negative. Gastrointestinal: Negative. Genitourinary: Negative. Musculoskeletal: Negative. Skin: Negative. Neurological: Negative. Endo/Heme/Allergies: Negative. Psychiatric/Behavioral: See HPI/Psyche section - See HPI Objective: BP 144/86 Pulse 92 Wt 87.544 kg (193 lb) LMP 07/03/2012 Physical Exam Gen: Pt is an obese woman, very distressed, tearful Psyche: Mood: Very anxious, extremely overwhelmed, Affect: tearful/very anxious appearing, Appearance: Normal. Eye contact: Normal. Behavior: Normal. Speech: Normal. Thought process: Linear. Thought Content: Focused on depression/anxiety. SIGECAPS positive for: Suicidal thoughts, Depressed mood, decreased energy, excessive guilt. DIGFAST: Negative. Judgment/Insight: appear intact. Hallucinations: absent. Pt denies suicidal t/i/p. Pt denies homicidal t/i/p. Assessment: Pt is a 37 y/o female presenting for serve anxiety/suicidal thoughts presenting to [facility] unable tocope and with suicidal thoughts without a clear plan. As per above discussed pt's plan to drive to [facility] ED. ED attending aware. Discussed with Crisis, crisis aware. Will forward to the pt's PCP. Plan: Guzman was seen today for depression and anxiety. Diagnoses and associated orders for this visit: Anxiety Suicidal ideation D/W Dr. Bernard. Signed, Blanka Doss MD 08/22/2012 18:06 Regional Liaison documented in this encounter Plan of Treatment Not on file documented as of this encounter Visit Diagnoses Diagnosis Anxiety- Primary Anxiety state, unspecified Suicidal ideation documented in this encounter Care Teams Rapid Extractor Operator Relationship Specialty Start Date End Date Tamara Neal MD [address] [place] [phone] PCP - General 09/13/08 03/18/13 documented as of this encounter
--- OUTSIDE RECORDS SUMMARY | 2024-02-14 15:24 | XMS_ITS | Encounter Summary ---
Author Organization [facility] Address [address] [place] [id number] Care Team Providers Care Sports Commentator Name Role Phone Tamara Neal MD Primary Care Provider + Reason for Visit * Reason Comments Hip Pain Back Pain Encounter Details Date Type Department Care Team (Late st Contact Info) Description 09/09/2012 16:45 EDT Office Visit [facility] [address] [id number] Tamara Neal MD [address] [place] [address] [phone] Left hip pain (Primary Dx) Discharge Disposition: Auto Discharge Social [...] Sign Reading Time Taken Comments Blood Pressure 128/82 09/09/2012 1605 EDT Pulse 112 09/09/2012 1605 EDT Temperature 36.3 ??C (97.4 ??F) 09/09/2012 1605 EDT Respiratory Rate - - Oxygen Saturation - - Inhaled Oxygen Concentration - - Weight 83.9 kg (185 lb) 09/09/2012 1605 EDT Height - - Body Mass Index 36.13 07/02/2012 1338 EST documented in this encounter Ordered Prescriptions Prescription Sig Dispensed Refills Start Date End Da te HYDROmorphone (DILAUDID) 8 mg tablet Take 0.5-1 Tabs by mouth 3 times daily as needed for Pain for 14 days. No more than 2.5 TABS per day 30 Each 0 09/23/2012 09/17/2012 HYDROmorphone (DILAUDID) 8 mg tablet Take 0.5-1 Tabs by mouth 3 times daily as needed for Pain for 14 days. No more than 2.5 TABS per day 30 Each 0 09/09/2012 09/09/2012 documented in this encounter Discharge Disposition Disposition Code Departure Means Destination Auto Discharge documented in this encounter Progress Notes * Tamara Neal MD - 09/09/2012 4460 EDT Subjective: Patient ID: Guzman Jean is an 37 y.o. female. Chief Complaint Patient presents with ??? Hip Pain ??? 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 Routine [...] TABS per day 30 Each 0 ??? traZODone (DESYREL) 100 mg tablet Take [...] for Muscle Spasms. 90 Each 1 ??? insulin glargine (LANTUS) 100 unit/mL injection [...] fluticasone (FLONASE) 50 mcg/Actuation nasal spray 1 [place] by Nasal route daily. 1 Bottle 2 [...] No ROS - See HPI Objective: BP 128/82 Pulse 112 Temp(Src) 36.3 ??C (97.4 ??F) (Oral) Wt 83.915 kg (185 lb) LMP 07/03/2012 Physical Exam Constitutional: She appears well-developed and well-nourished. No distress. HENT: Head: Normocephalic and atraumatic. Eyes: Conjunctivae normal are normal. No scleral icterus. Neurological: She is alert. Psychiatric: She has a normal mood and affect. Assessment: Plan: Guzman was seen today for hip pain and back pain. Diagnoses and associated orders for this visit: Left hip pain, chronic S/P left labral tear repair last year Fairly recent hip injection for diagnostic purposes with [facility] but never had follow up with Dr. Moffett to determine next plan, SHe needs to call him/his office to set up appt We have been weaning down her Dilaudid, now 8 mg BID, occ 4 mg as well Last month rec'ed 2 Rx for #30 TABS 2 week supply On 08/14 at [facility] ED eval for med clearance for [place] [facility] had UD6 that was NEG for opiates In June her UD6 and opiate conf was appropriate here Need to check both today I gave her one Rx for Dilaudid 4-8 mg BID, no more than 2.5 tabs daily (#30) and if urine is appropriate will be able to picker/puller second #30 TAB in 10-14 days - Drug Screen 6 - Drug Screen, Opiate Confirmation, Urine Other Orders - Discontinue: HYDROmorphone (DILAUDID) 8 mg tablet; Take 0.5-1 Tabs by mouth 3 times daily as needed for Pain for 14 days. No more than 2.5 TABS per day - HYDROmorphone (DILAUDID) 8 mg tablet; Take 0.5-1 Tabs by mouth 3 times daily as needed for Pain for 14 days. No more than 2.5 TABS per day Return in about 4 weeks (around 10/07/2012), or if symptoms worsen or fail to improve, for rov. documented in this encounter Plan of Treatment Not on file documented as of this encounter Procedures Procedure Name Priority Date/Time Associated Diagnosis Comments MISCELLANEOUS TEST, OTHER Routine 09/09/2012 16:37 EDT ZZADULTERANTS SURVEY, URINE Routine 09/09/2012 16:37 EDT DRUG SCREEN 6 Routine 09/09/2012 16:37 EDT Left hip pain OPIATE PANEL CONFIRMATION Routine 09/09/2012 16:37 EDT Left hip pain documented in this encounter Results * ADULTERANTS SURVEY, URINE (09/09/2012 16:37 EDT) Creatinine, U 56.1 mg/dL [facility] Specific [place] 1.006 [facility] pH 6.4 [facility] Oxidants Negative [facility] Comment: Performed or Referred by: [facility] Labs: [facility], [facility] [place] [address], Lab Dir: Roberto Kathleen III, MD URINE / Unknown 09/09/2012 1 6:37 EDT 09/09/2012 18:56 EDT Tamara Neal MD CHEMISTRY & BLOO D GAS ORDERABLES [facility] [address] [place] [address] * MISCELLANEOUS TEST, OTHER (09/09/2012 16:37 EDT) Test Name 6 Monoacetylmorphine (6MAM), Urine [facility] Result See Pathology Scanne d Report in PRISM. [facility] Comment: (Note) 6-Monoacetylmorphine by GC/MS = Negative Interpretation: ??Negative Reference Value: ??Cutoff: ??5 Ref Lab Test performed by: Christi GONZALES Comment: [place], [place] URINE / Unknown 09/09/2012 1 6:37 EDT 09/09/2012 18:56 EDT Tamara Neal MD CHEMISTRY & BLOO D GAS ORDERABLES [facility] [address] [place] [address] * OPIATE CONFIRMATION (09/09/2012 16:37 EDT) Pathologist [facility] [place] Opiates Positive Cutoff: 300 ng/mL [facility] Comment: (Note) This report is intended for use in clinical monitoring and management of patients. It is not intended for use in employment-related drug testing. Conf, Opiates Positive [facility] Codeine Negative <100 ng/mL [facility] Hydrocodone Negative <100 ng/mL [facility] Hydromorphone Negative <100 ng/mL [facility] Morphine 5070 <100 ng/mL [facility] Comment: (Note) If heroin use suspected, test 07222, 1-dmer-mngnvq-morphine(6-MAU) heroin metabolite, can be added at an additional charge. Oxycodone Negative <100 ng/mL [facility] Oxymorphone Negative <100 ng/mL [facility] Comment: (Note) This report is intended for use in clinical monitoring and management of patients. It is not intended for use in employment-related drug testing. Performed by: [place] [facility], [facility] [address], [place] [address], Vp Product Management: Rose Lincoln, Ph.D. Urine specimen (specimen) URINE / Unknown 09/09/2012 16:37 EDT 09/09/2012 18:56 EDT Tamara Neal MD URINALYSIS ORDER YOON Performing Organization Address [facility] Co de Phone Number [facility] [address] [place] [address] * DRUG SCREEN 6 (09/09/2012 16:37 EDT) Amphetamine Screen, Urine Negative screen. [facility] Comment: Confirmation testing available upon request. Suitable for medical purposes only. Will not detect all drugs within class. Cutoff = 1000 ng/ml Barbiturate Screen, Urine Negative screen. [facility] Comment: Confirmation testing available upon request. Suitable for medical purposes only. Will not detect all drugs within class. Cutoff = 300 ng/ml Benzodiazepine Screen, Urine Negative screen. [facility] Comment: Confirmation testing available upon request. Suitable for medical purposes only. Will not detect all drugs within class. Assay less sensitive to Lorazepam and metabolites. Cutoff = 200 ng/ml Cannabinoid Scrn, Ur Negative screen. [facility] Comment: Confirmation testing available upon request. Suitable for medical purposes only. Will not detect all drugs within class. Cutoff = 50 ng/ml Cocaine Metabolites, Ur Negative screen. [facility] Comment: Confirmation testing available upon request. Suitable for medical purposes only. Will not detect all drugs within class. Cutoff = 300 ng/ml Opiate Scrn, Ur Presumptive positive, interpret with caution. [facility] Comment: Confirmation testing available upon request. Suitable for medical purposes only. Will not detect all drugs within class. Cutoff = 300 ng/ml Assay less sensitive to oxycodone and metabolites. Assay does not detect methadone. Urine specimen (specimen) URINE / Unknown 09/09/2012 16:37 EDT 09/09/2012 18:56 EDT Tamara Neal MD URINALYSIS ORDER YOON Performing Organization Address [facility] de Phone Number [facility] [address] [place] [address] documented in this encounter Visit Diagnoses Diagnosis Left hip pain- Primary Pain in joint, pelvic region and thigh documented in this encounter Discontinued Medications Medication Sig Discontinue Reason Start Date End Da te HYDROmorphone (DILAUDID) 8 mg tablet Take 0.5-1 Tabs by mouth 3 times daily as needed for Pain for 14 days. No more than 2.5 TABS per day Reorder 08/26/2012 09/09/2012 HYDROmorphone (DILAUDID) 8 mg tablet Take 0.5-1 Tabs by mouth 3 times daily as needed for Pain for 14 days. No more than 2.5 TABS per day Reorder 09/09/2012 09/09/2012 documented as of this encounter Care Teams Sports Commentator Relationship Specialty Start Date End Date Tamara Neal MD [address] [place] [phone] PCP - General 09/13/08 03/18/13 documented as of this encounter
--- OUTSIDE RECORDS SUMMARY | 2024-02-14 15:24 | XMS_ITS | Encounter Summary ---
Author Organization [facility] Address [address] [place] [address] Care Team Providers Care Lobsterman Name Role Phone Tamara Neal MD Primary Care Provider + Encounter Details Date Type Department Care Team (Late st Contact Info) Description 08/01/2012 9:49 EDT - 08/01/2012 23:59 EDT Hospital Encounter [facility] - [address] [address] [place] Yusuf MD [address] [facility], [facility] [address] [place] [phone] Discharge Disposition: Home or Self Care Social [...] Take 1 Tab by mouth daily. 12/31/2013 buPROPion (WELLBUTRIN SR) 150 mg SR tablet Take by mouth one tablet daily for first three days, then one tablet twice daily for 7-12 weeks. 60 Tab 2 06/17/2012 08/12/2012 citalopram (CELEXA) 40 mg tablet Take 0.5 Tabs by mouth daily. 90 Each 0 06/17/2012 09/24/2012 cyclobenzaprine (FLEXERIL) 10 mg tablet Take 1 Tab by mouth 3 times daily as needed for Muscle Spasms. 90 Each 1 03/18/2012 08/12/2012 fluticasone (FLONASE) 50 mcg/Actuation nasal sprayIndications:Pelon rgic rhinitis 1 [place] by Nasal route daily. 1 Bottle 2 08/01/2010 09/24/2012 HYDROmorphone (DILAUDID) 8 mg tablet Take 0.5-1 Tabs by mouth 3 times daily as needed for Pain for 14 days. No more than 2.5 TABS per day 35 Each 0 07/27/2012 08/04/2012 ibuprofen (MOTRIN) 200 mg tablet Take 3 [...] 1 Tab by mouth daily. 30 Tab 3 12/12/2010 08/12/2012 ramelteon (ROZEREM) 8 mg tablet Take 1 Tab by mouth daily. 30 Each 5 10/17/2011 08/12/2012 simvastatin (ZOCOR) 20 mg tablet Take 1 Tab by mouth every evening. 90 Tab 3 09/04/2011 08/12/2012 trazodone (DESYREL) 100 mg tabletIndications:Chr onic pain syndrome Take 1.5 Tabs by mouth at bedtime. 90 Tab 3 12/25/2011 08/12/2012 documented as of this encounter Discharge Disposition Disposition Code Departure Means Destination Home or Self Snf documented in this encounter Plan of Treatment Not on file documented as of this encounter Visit Diagnoses Not on filedocumented in this encounter Care Teams Lobsterman Relationship Specialty Start Date End Date Tamara Neal MD [address] [place] [phone] PCP - General 09/13/08 03/18/13 documented as of this encounter
--- OUTSIDE RECORDS SUMMARY | 2024-02-14 15:24 | XMS_ITS | Encounter Summary ---
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 Labs 05/02/13 0322 WBC 12.97* HGB 13.0 HCT 38.2 PLT 332* No results found for this basename: PROTIME, INR, PTT, in the last 72 hours Radiology: N/a Assessment & Plan by Problems: Hilda Crowley is a 37 y.o.female with history of bipolar,PTSD, anxiety, prior suicide attempt,and diabetes mellitus on insulin, who admitted to taking 1500 u of lantus insulin on 04/30/13 at 1700pm with suicidal intent. She was admitted initially to the ICU, transferred to the floor on 05/02, has required D10 insulin, weaning rate slowly. Intentional Insulin overdose (05/01/2013) Suicidal ideation (05/01/2013) -continue D10; wean as tolerated. -q4h glucose checks--when she finally weans off dextrose drip, will need to briefly check glucoses more regularly (q2h if possible) until we know she is stable) but then can space PRN. -D25 PRN for low glucose levels -1:1 sitter -psychiatric admission to [facility] held until Saturday PM, pending clinical course -Appreciate psychiatry recommendations Psychiatric issues: Bipolar, PTSD, anxiety (05/01/2013) -appreciate psychiatric consultation -continue home meds: quietapoine 150 qhs, cymbalta (increased to 120 qd from 30 qd per home dosing), oxycarbazepine 300 mg BID -called pharmacy and they are seeing if we can get her home focalin vs ritalin. Her home dose is 15mg at 8 am and noon. -plan for [facility] transfer on Saturday pending medical stability. T2DM: -holding insulin and metformin as she has had an insulin overdose -last HbA1c was 7.5. PCP Ingrid Maldonado is ok with stopping insulin if we feel this is best. In the past she has tried Glipizide from 02/2010 -06/2011, Actose from 2009 to 30g- 07/2012, metformin 1000 mg BID from 09/2009 -04/2012 (still current) -could consider moving back to metformin and actos on d/c for safety. Chronic pain: - naprosyn 500mg BID - Tylenol prn - flexeril TID prn -she has been prescribed lidoderm patch in the patch, can add this if she needs. Nutrition Carb controlled diet DVT Prophylaxis: heparin TID Disposition: Likely to inpatient psychiatry on Saturday pending stability, off drip. Code Status: FULL Patient & Plan discussed with attending, MD Annette Licea MD 05/04/2013 14:26 PGY2 [id number] Attending attestation: I personally reviewed the study and the resident's/fellow's interpretation and agree with the findings documented. 1) Psych - Lantus overdose, 1500U SQ injection on 04/30/13. On D10 @ 150cc/hr currently. BS are in 150-170 range. Will turn down rate as BS continues to rise. Expect by late 05/04 or 05/05 that we will be able to discontinue dextrose infusion. Still endorses some safety concerns at home, I don't know ifI would inject Lantus again. Psychiatry consulting on pt. Appreciate recs. Will increase Cymbalta and change Ritalin dosing. Plan to transfer to inpatient psychiatry when glucose is stable off dextrose infusion. 2) Chronic pain - lumbar pain. Hx of being on controlled substances for pain mgmt, but was discontinued by her PCP Annette Maldonado at [facility] late last year. Will continue with supportive care. Given depression and h/o suicide attempts, I would not recommend any narcotics. She may benefit with some PT while hospitalized 3) DM - Hba1c was 7.5 on 04/14/13. Will inquire with [facility] her medication hx, to see if she can possibly be on oral hypoglycemics. Given now that she has had 2 suicide attempts with self administeringlethal doses of insulin, I don't think she should continue on insulin unless it is absolutely necessary. Urmila Mendez MD 05/04/2013 15:30 * Shy Alonzo RN - 05/04/2013 1309 EST Brief Case Management Assessment Reason for Hospitalization: Pt is a 55 y.o. Woman with past medical history of diabetes, bipolar, PTSD, prior suicide attempt, who was admitted for suicide attempt by injection of 1500 u of lantus. She was admitted to the MICU where treatment was started with D10W, she has been stable throughout hospital course with a few lowglucose levels down to the 40's. Currently on 150 cc/hr D10W with expected completion tomorrow and v oluntary admission to [facility]. Current Living Arrangements: Patient lives in [place]. She is independent at baseline and employed. She has spoken with her work and they are aware of her illness. She is willing to be voluntarily admitted to psychiatry. Current Social, Health Care and Community Supports: Patient is covered by Annette Sidhu at the [facility] She has supportive family in the area Patient has managed Medicaid for her medical and pharmacy needs Identified Case Management/Social Work Needs and Issues No further case management needs at this time Case Management Actions (completed and planned): Awaiting medical clearance for voluntary admission to inpatient psychiatry Anisa Alonzo RN [facility] Clinical Biochemist [id number] * Urmila Mendez MD - 05/03/2013 1211 EST Family Medicine Service Progress Note Chief Complaint: Suicide attempt 24-Hour Events: Admitted. Psychiatry consulted. Endorses suicidal intent. Subjective: Reports long history of alternating manic/hypomanic and depressive episodes. Describes long history of impulsive behavior, sexual promiscuity, monetary indiscretion. Feels that bipolar disorder is a diagnosis that fits well. States that the outpatient medication for bipolar disorder has not made a large difference. States she is uncertain whether she would tried to commit suicide again. Suspects that unless her medication is optimized she eventually will. Reports one prior suicide attempt, also using insulin. Describes feelings of guilt with respect to her daughter. Physically with no complaints other than mild back pain from spending time in bed. Review of Systems: A ten point review of systems was performed and was negative except per above. Current Medications: Current Facility-Administered Medications Medication Route Frequency ??? acetaminophen (TYLENOL) tablet 650 mg oral Q6H PRN ??? albuterol (VENTOLIN HFA) inhaler 2 Puff inhalation Q4H PRN ??? cyclobenzaprine (FLEXERIL) tablet 10 mg oral TID PRN ??? dextrose 10 % (D10W) infusion intravenous CONTINUOUS ??? dextrose 50 % solution 12.5 g intravenous PRN ??? DULoxetine (CYMBALTA) capsule 30 mg oral DAILY ??? glucagon (human recombinant) 1 mg/mL injection ??? heparin injection 5,000 Units subcutaneous Q8H ??? methylphenidate (RITALIN;METHYLIN) tablet 10 mg oral BID ??? naproxen (NAPROSYN) tablet 500 mg oral BID (BREAKFAST/DINNER) ??? OXcarbazepine (TRILEPTAL) tablet 300 mg oral BID ??? QUEtiapine (SEROQUEL) tablet 150 mg oral QHS ??? simvastatin (ZOCOR) tablet 20 mg oral QPM Objective: Physical Exam: BP 143/82 Pulse 98 Temp(Src) 36.5 ??C (97.7 ??F) (Tympanic) Resp 18 Ht 152.4 cm (60) Wt 86.5 kg (190 lb 11.2 oz) BMI 37.24 kg/m2 SpO2 99% Intake/Output Summary (Last 24 hours) at 05/03/13 1211 Last data filed at 05/03/13 0842 Gross per 24 hour Intake 5594.17 ml Output 1525 ml Net 4069.17 ml General: Non-toxic, NAD HEENT: Normocephalic/Atraumatic, MMM, Conjunctiva nonicteric Neck: Supple without rigidity, full ROM, no cervical lymphadenopathy Chest/Breast: No lesion or deformity, non-tender to palpation Respiratory: CTAB. No distress, good air movement, no w/r/r. Cardiac: HRR, normal S1 & S2, no m/g/r. Abdomen: +BS, soft, NT, ND. Without guarding, rigidity or rebound. No masses or HSM. Exts: No c/c/e. Musculoskeletal: Normal symmetric muscle bulk and strength. No obvious deformities. Dermatologic: No rashes or lesions, skin warm and dry Neurologic: CN II-XII grossly intact. TRIPATHI. Psychiatric: A&Ox3, answers questions easily and appropriately. No emotional lability during interview. No displays of excessive sadness. Patient does briefly have to fight back tears when talking of her daughter and now her daughter learned of her hospitalization. Laboratory: Recent Labs 05/01/13 1515 05/02/13 0322 05/03/13 0715 NA 141 135* 135* K 3.7 3.8 3.9 CO2 30 25 25 CL 102 102 100 BUN -- 6* -- CREATININE -- 0.47* -- Recent Labs 05/02/13 0322 WBC 12.97* HGB 13.0 HCT 38.2 PLT 332* No results found for this basename: PROTIME, INR, PTT, in the last 72 hours Radiology: N/a Assessment & Plan by Problems: Hilda Crowley is a 37 y.o.female with history of bipolar,PTSD, anxiety, prior suicide attempt,and diabetes mellitus on insulin, who admitted to taking 1500 u of lantus insulin on 04/30/13 at 1700pm with suicidal intent. She was admitted initially to the ICU, has been pretty stable with the exception of some low glucoses down to 40s, but has needed D10 for stability. With her dose and a 5 dayduration of action per pharmacy, she will likely require IV dextrose for at least one more day. Intentional Insulin overdose (05/01/2013) Suicidal ideation (05/01/2013) -continue D10; wean as tolerated. -q4h glucose checks--can space as she becomes more stable. -D25 PRN for low glucose levels -1:1 sitter -psychiatric admission to [facility] in the works for Saturday, pending clinical course for SI and patient's wishes. -Appreciate psychiatry recommendations Psychiatric issues: Bipolar, PTSD, anxiety (05/01/2013) -appreciate psychiatric consultation -continue home meds: quietapoine 150 qhs, cymbalta 30 mg qd, oxycarbazepine 300 mg BID -plan for [facility] transfer on Saturday pending clinical course T2DM: -holding insulin and metformin as she has had an insulin overdose Chronic pain: - naprosyn 500mg BID - Tylenol prn - flexeril TID prn Nutrition Carb controlled diet DVT Prophylaxis: heparin TID Disposition: Likely to inpatient psychiatry on Thursday 05/04. Code Status: FULL Patient & Plan discussed with attending, MD Sameer Licea MD 05/03/2013 12:11 [phone] Attending attestation: I personally reviewed the study and the resident's/fellow's interpretation and agree with the findings documented. 1) Suicide attempt on 04/30/12 with self administering 1500U of Lantus. Currently on D10 @ 250cc/hr, BS are stable in low 100s, eating well. Per pharmacy, expect duration of Lantus to be ~4-5 days. Will slow rate of D10 infusion as her BS show steady increases. Would not expect to turn off infusion for at least another 24-48 hrs. 2) Psychiatry - will reevaluate for transfer to inpatient psychiatry as her medical status becomes more stable Urmila Mendez MD 05/03/2013 13:17 * Dilan Hernandes MD - 05/02/2013 7235 EST MICU Attending Progress Note 24-Hour Events & Subjective No major events No complaints Continues to require D10 infusion Physical Examination Vital Signs Temp: 35.6 ??C (96.1 ??F) Temp: [35.4 ??C (95.7 ??F)-35.8 ??C (96.4 ??F)] Pulse: 90 Pulse: -- BP: 134/75 mmHg BP: (89-148)/(39-90) Resp: 26 Resp: [14-26] SpO2: 99 % SpO2: [96 %-100 %] Intake/Output Summary (Last 24 hours) at 05/02/13 9819 Last data filed at 05/02/13 1601 Gross per 24 hour Intake 4828.33 ml Output 3375 ml Net 1453.33 ml Exam: General: nad well appearing depressed affect Cardiovascular: Rrr, no m/r/g Pulmonary: Clear to ascultation Abdomen: Soft, nontender, nondistended Extremities: Negative c/c/e Data Recent Labs 05/02/13 0322 WBC 12.97* HGB 13.0 HCT 38.2 MCV 91 PLT 332* Recent Labs 05/01/13 1515 05/02/13 0322 NA 141 135* K 3.7 3.8 CL 102 102 CO2 30 25 BUN -- 6* CREATININE -- 0.47* No results found for this basename: PROTIME, INR, PTT, in the last 72 hours No results found for this basename: ALT, AST, GGT, ALKPHOS, TBIL, CONJBILI, UNCONJBILI, TP, PREALBUMIN, LABALBU, in the last 72 hours No results found for this basename: PHISTAT, PCOISTAT, POISTAT, POCTCO2, W5FWFYLC, BEART, BDART, POCFIO2, in the last 72 hours No results found for this basename: LACTICACID, LACTATE, POCTLACTATE, in the last 72 hours Microbiology: Results for orders placed during the hospital encounter of 05/01/13 (from the past 336 hour(s)) MRSA MOLECULAR DETECTION Collection Time 05/01/13 19:48 Result Value Range Status Specimen Description Nasal Final Result No Staphylococcus aureus detected by PCR. Final Medications Daily Scheduled DULoxetine 30 mg DAILY glucagon (human recombinant) heparin 5,000 Units Q8H OXcarbazepine 300 mg BID QUEtiapine 150 mg QHS dextrose Last Rate: 250 mL/hr at 05/02/13 1605 Daily PRN Meds acetaminophen 325 mg Q4H PRN albuterol 2 Puff Q4H PRN cyclobenzaprine 10 mg TID PRN dextrose 50 % 25 mL PRN Allergies: Review of patient's allergies indicates no known allergies. Subjective: Chief Complaint: Suicide attempt with lantus SUMMARY: 37F admitted s/p suicide attempt with long-acting insulin. She is continuing to require 250cc/hr D10 infusion to maintain glucose. She was previously NPO, we will advance her diet today. Gastroenterology Assessment: No active issue Plan: Resume diet Hematologic: Assessment: HgB normal Plan: continue dvt PPX Endocrine: Assessment: Insulin overdose Plan: - Continue frequent fingerstick glucose - Continue D10 infusion - Follow FSBS, wean off D10 as able. Note however that as she starts eating her glucose may fluctuate a bit more so she may be at slightly higher risk of hypoglycemia in between meals. Neurologic: Assessment: - Suicide attempt Plan: - 1:1 sitter - Psychiatry consultation appreciated Agrees to inpatient psych stay when stable medically Restart home focalin 15 mg bid Otherwise resume home psych regimen - not to leave AMA without psych clearance Critical Care Time: I spent 35 minutes of critical care time with this patient performing noted interventions and evaluations. This does not overlap with other physicians critical care time and is exclusive of any procedures. DILAN HERNANDES MD 05/02/2013 17:35 * Neida Campos - 05/02/2013 0815 EST Medicine Progress Note Admit Date: 05/01/2013 Hospital Day: LOS: 1 day Date of Service: 05/02/2013 Patient summary: 37 year old with depression and previous suicide attempt who injected herself with5 pens of lantus at 17:00 04/30/13 Chief Complaint: Suicide attempt with insuline overdose ROS/Subjective: teary, feeling depressed, in back pain. No N/V, no dizziness, no chest pain. Current Facility-Administered Medications Medication Route Frequency ??? acetaminophen (TYLENOL) tablet 325 mg oral Q4H PRN ??? albuterol (VENTOLIN HFA) inhaler 2 Puff inhalation Q4H PRN ??? dextrose 50 % solution 12.5 g intravenous PRN ??? DULoxetine (CYMBALTA) capsule 30 mg oral DAILY ??? glucagon (human recombinant) 1 mg/mL injection ??? heparin injection 5,000 Units subcutaneous Q8H ??? OXcarbazepine (TRILEPTAL) tablet 300 mg oral BID ??? potassium chloride 10 mEq, sodium chloride 19.25 mEq in dextrose (D10W) 10 % 500 mL custom infusion intravenous CONTINUOUS ??? potassium chloride 20 mEq, sodium chloride 38.5 mEq in dextrose (D10W) 10 % 1,000 mL custom infusion intravenous CONTINUOUS ??? QUEtiapine (SEROQUEL) tablet 150 mg oral QHS Objective/Physical Exam: VS: BP 89/53 Pulse 90 Temp(Src) 35.5 ??C (95.9 ??F) (Tympanic) Resp 22 Ht 152.4 cm (60) Wt 86.5 kg (190 lb 11.2 oz) BMI 37.24 kg/m2 SpO2 100% I&O: Intake/Output Summary (Last 24 hours) at 05/02/13 0816 Last data filed at 05/02/13 0700 Gross per 24 hour Intake 3138.33 ml Output 650 ml Net 2488.33 ml Exam: General: A+O x 3, NAD, depressed affect Lungs: CTAB CV: RRR, no murmurs appreciated Abd: + BS, soft, non-tender Extremities: warm and well-perfused Labs: WBC/Hgb/Hct/Plts: 12.97/13.0/38.2/332 (05/02 321) Na/K/Cl/CO2: 135/3.8/102/25 (05/02 321) BUN/Cr/glu/ALT/AST/amyl/lip: 6/0.47/--/--/--/--/-- (05/02 321) Acetaminophen < 10 Salicylate < 1 Opiate (oxycodone): presumed positive Other studies: Assessment: 37 year old with depression and prior suicide attempt who presented with a lantus overdose and subsequent hypoglycemia Plan: Neuro/psych: Teary, still with SI -can't leave AMA -psych consult today Resp: no active issues CV: no active issues. No QT prolongation on EKG Renal: no active issues. tox screen negative for renal toxic drugs. ID no active issues Heme: no active issues Endocrine: hypoglycemic overnight to low 40's. FS q 1 hr -D 10 drip (decrease dose to 150/hr) -D 50 PRN Nutrition/prophylaxis -SQ heparin -full diet Discharge Plan: can likely be transferred to the floor today Consults: psychiatry Neida Campos 05/02/2013 8:16 * Stephanie Parada RN - 05/01/2013 2236 EST Patient called RN to room stating, I feel like my sugar is bottoming out, I am all sweaty Blood sugar obtained, result 41. Pt medicated with 1/2 amp D 50 as ordered. Patient became minimally responsive, moaning and shaking. Dr. Marshall at bedside patient with coughing turned to left side to prevent aspiration in case the patient vomited. Patient given additional 1/2 amp D 50 and IV fluids increased to 200 ml/hr. Patient more arousable stating, I feel like I can't breathe. Patient with tachycardia,, tachypnea and diaphoresis during this episode. Repeat blood sugar 201. Patient weepy but states she feels better after treatment. Will continue to monitor closely. documented in this encounter H&P Notes * Phil Horta MD - 05/02/2013 1436 EST Family Medicine Transfer Note: Chief Complaint: Suicide attempt History of Present Illness: Hilda Crowley is a 37 y.o.female with history of diabetes mellitus on insulin, bipolar disorder, PTSD, anxiety, 2 prior psychiatric admissions, and one prior suicide attempt with insulin, who admitted to taking 5 insulin pens (1500 u of lantus) on 04/30 at 1700 pm with suicidal intent. As needed, she treated hypoglycemic symptoms with food/juice with improvement of initial sweats, shaking. Sheawoke to 911 on 05/01, so concerned family members and boyfriend had called for help. Initial glucosewas 242, down to 70s in the ED then dropped to 40. She was given juice and dextrose 50% 25 g, whichraised her glucose to 97. She denied ingestion of other substances. She was admitted to the ICU formanagement of her ongoing hypoglycemia. She was placed on D10 at 300 cc/h and was stable with some episodes of hypoglycemia to 40s. The team tried to drop her to 150 cc today but was trending lower, so she was increased to 250 cc/h and this is where she remains. She is amenable to psychiatric treatment and has a bed on Saturday for inpatient admission to [facility] presuming she will be medically stable by that point. Review Of Systems: 10 point ROS completed: pertinent positives listed in HPI She denies CP, SOB, palpitations, N/V, abd pain or rash. She has some back and left hip pain as well as a headache which are from the hospital bed. Past Medical History: PCP: Annette Sidhu Patient Active Problem List Diagnosis ??? Routine [...] Suicidal ideation ??? Insulin overdose ??? Depression Past Surgical History Procedure Laterality Date ??? Tonsillectomy 2000 ??? Cholecystectomy 11/25/2009 Dr. Mendez ??? section 1998,2007 times 2 ??? Hip arthroscopy 2013 History Social History ??? Marital Status: Spouse Name: N/A Number of Children: N/A ??? Years of Education: N/A Occupational History ??? Not on file. Social History Main Topics ??? Smoking status: Smoker, Current Status Unknown -- 0.50 packs/day for 3 years Types: Cigarettes ??? Smokeless tobacco: Never Used ??? Alcohol Use: No ??? Drug Use: No ??? Sexually Active: Yes Other Topics Concern ??? Not on file Social History Narrative ??? No narrative on file Family History Problem Relation Age of Onset ??? Cancer Maternal Aunt breast cancer ??? Cancer Maternal Grandmother breats cancer ??? Diabetes Paternal Grandmother ??? Diabetes Paternal Grandfather No Known Allergies Current Medications: Current Facility-Administered Medications Medication Route Frequency ??? acetaminophen (TYLENOL) tablet 325 mg oral Q4H PRN ??? albuterol (VENTOLIN HFA) inhaler 2 Puff inhalation Q4H PRN ??? cyclobenzaprine (FLEXERIL) tablet 10 mg oral TID PRN ??? dextrose 50 % solution 12.5 g intravenous PRN ??? DULoxetine (CYMBALTA) capsule 30 mg oral DAILY ??? glucagon (human recombinant) 1 mg/mL injection ??? heparin injection 5,000 Units subcutaneous Q8H ??? OXcarbazepine (TRILEPTAL) tablet 300 mg oral BID ??? potassium chloride 10 mEq, sodium chloride 19.25 mEq in dextrose (D10W) 10 % 500 mL custom infusion intravenous CONTINUOUS ??? potassium chloride 20 mEq, sodium chloride 38.5 mEq in dextrose (D10W) 10 % 1,000 mL custom infusion intravenous CONTINUOUS ??? QUEtiapine (SEROQUEL) tablet 150 mg oral QHS Objective: Physical Exam: BP 134/75 Pulse 90 Temp(Src) 35.6 ??C (96.1 ??F) (Tympanic) Resp 18 Ht 152.4 cm (60) Wt 86.5 kg (190 lb 11.2 oz) BMI 37.24 kg/m2 SpO2 99% General: NAD, alert, cooperative, obese female HEENT: PERRL, EOM intact, anicteric sclera, MMM, oropharynx w/o erythema/exudate Neck: supple, no cervical lymphadenopathy, no thyromegaly, no JVD Heart: RRR, no murmurs Resp: clear to auscultation b/l GI: + bowel sounds, soft, non distended, non tender to palpation, no organomegaly : no suprapubic pain, no CVA tenderness Extremities: No clubbing, cyanosis or peripheral edema, 2+ DP pulses, brisk cap refill skin: no rashes or ulcers noted Neuro: AAOx3, No focal motor or sensory deficits noted Psychiatric: Normal affect, mood appears normal with underlying depression. Normal speech and linear thought process. In discussing her suicide attempt she admits that she was trying to take her lifeand that she had done a lot of research about how much insulin she would have to take to kill herself. However when discussing her actions afterwards, about taking juice and countering the effects ofinsulin she is very vague and does not comment on whether she had any regrets. She also doesn't comment on whether she thinks it was good that her boyfriend tried to help her. She does affirm that ifshe left today she would not trust herself not to do something again. EK/3 no signs of ischemia, no QTc prolongation Laboratory: CBC: Lab Results Component Value Date WBC 12.97* 05/02/2013 RBC 4.20 05/02/2013 HGB 13.0 05/02/2013 HCT 38.2 05/02/2013 MCV 91 05/02/2013 MCH 31.0 05/02/2013 MCHC 34.1 05/02/2013 PLT 332* 05/02/2013 NEUTROABS 5.71 05/02/2013 SEDRATE 10 07/13/2010 BMP: Lab Results Component Value Date NA 135* 05/02/2013 K 3.8 05/02/2013 CL 102 05/02/2013 CO2 25 05/02/2013 BUN 6* 05/02/2013 CREATININE 0.47* 05/02/2013 GLUCOSEFINGE 108* 05/02/2013 CALCIUM 9.5 04/14/2013 LABALBU 4.5 04/14/2013 Radiology: none Assessment & Plan Hilda Crowley is a 37 y.o.female with history of bipolar,PTSD, anxiety, prior suicide attempt,and diabetes mellitus on insulin, who admitted to taking 1500 u of lantus insulin on 04/30 at 1700 pmwith suicidal intent. She was admitted initially to the ICU, has been pretty stable with the exception of some low glucoses down to 40s, but has needed 250-300 cc of D10 for stability. With her dose and a 5 day duration of action per pharmacy, she will likely require IV dextrose for a few more days. Intentional Insulin overdose (05/01/2013) Suicidal ideation (05/01/2013) -continue D10 at 250 cc/h; wean as she becomes more stable from a glucose standpoint but it is better that she trend slightly high than low, given her ingestion. She is eatign full meals at this point so presume she will improve by tomorrow. -q4h glucose checks--can space as she becomes more stable. -D25 PRN for low glucose levels -1:1 sitter -psychiatric admission to [facility] in the works for Saturday, pending clinical course for SI and patient's wishes. Psychiatric issues: Bipolar, PTSD, anxiety (05/01/2013) -appreciate psychiatric consultation -continue home meds: quietapoine 150 qhs, cymbalta 30 mg qd, oxycarbazepine 300 mg BID -[facility] pending clinical course T2DM: -holding insulin and metformin as she has had an insulin overdose Chronic pain: - naprosyn 500mg BID - Tylenol prn - flexeril TID prn Nutrition Carb controlled diet DVT Prophylaxis: heparin TID Disposition: Likely to inpatient psychiatry on Thursday 05/04. Code Status: FULL Patient & Plan discussed with attending, MD Phil Licea MD PGY 2 [phone] 05/02/2013 14:37 * Rodney Jose MD - 05/01/2013 1846 EST MICU Admitting H+P Date of Service: 05/01/2013 Chief Complaint: don't want to live HPI: Hilda Crowley is a 37 y.o.female with history of Hip/back pain s/p hip surgery (1 year ago), depression, suicide attempt 1.5 year ago, and diabetes mellitus, states that at 5 PM yesterday (04/30/13) she self injected Lantus insulin x5 pre-filled pens (100 units/mL, with 3 mL per prefilled pen), for a total of 1500 units of Lantus insulin, with suicidal intent. Started feeling sweats and flushing and drank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 suicidal ideation x Recent suicide attempt x Children in home Current plan for suicide x Prior suicide attempt Voodoo prohibition x Intent for self harm or suicide History of rehearsal behaviors for suicide Satisfaction with life x Means available Chronic or terminal illness Sense of responsibility to family and social supports/connections x Potential lethality of means x Discharge from psychiatric hospital in last 3 months Capacity for self-observation x Capacity to take action x Recognition of global functional deterioration due to psychiatric illness Positive coping skills/potential x Recent losses or disruption of care Male Positive problem solving x Substance abuse/dependence , , single Capacity to self-regulate Intoxication Older than 55 y/o Capacity to realistically appraise one's self and one's life circumstances Acute delirium x x Capacity to establish therapeutic alliance x Physical pain x Poor social support x Willingness to comply with treatment plan Panic attacks Unemployment Outpatient care in place Impulsivity x Mood disorder Other: Aggressivity Schizophrenia x Agitation Panic disorder x Psychic distress/anxiety/pain x Cluster B personality disorder x Vulnerability to painful affective states Dementia x Hopelessness x Presence of comorbidity (more than one psychiatric disorder) x Helplessness x Childhood abuse/neglect x Despair Family history of attempted or completed suicide x Decreased self esteem x Family history of psychiatric illness x Loss of pleasure/interest x Decreased concentration Perfectionism x Insomnia x Constricted thinking Polarized thinking Psychotic state Command hallucinations Overall Risk Rating Acute Chronic Low Low Moderate Moderate x High x High Comments on assessment of risk: High acute risk based on her current depressive symptoms, inabilityto ask for help, prior suicide attempts and lack of protective factors; high chronic risk due to suboptimally treated bipolar disorder. Recommendations: 1. Patient is currently agreeing to psychiatric admission. Continue 1:1 sitter, and do not allow the patient to leave AMA. If the patient attempts to leave, please contact psychiatry immediately. 2. Restart patients home dose of focalin, 15mg BID, as abrupt cessation of amphetamines and similardrugs can cause an increase in depressive symptoms and suicidality. 3. Inpatient psychiatry units are currently full, with openings expected on Saturday. Patient is still being medically stabilized, and primary team notified of likely open beds on Saturday. 4. Will consider switching to a more effective mood stabilization regimen once patient is on the psychiatry floor. 5. Will further ascertain substance abuse vs chronic pain. 6. Thank you for the consult. Psychiatry consult service can be reached at [phone] weekdays from 8am-5pm, and through the on-call resident at [phone] after-hours and on weekends. Melvi Hanley MD 05/02/2013 13:46 Attending Attestation: I have seen and evaluated Ms. Crowley on 05-02-12; her recent history and recommended treatment plan has been discussed at length with her. She continues to endorse suicidal thinking and a variety of risk factors indicating an overall high acute risk of self-harm warrant an intensive level of psychiatric treatment. Ms. Crowley has been offered a bed on inpatient psychiatry and there will likely be availability on SaturdayMay 04. It is expected that she will be admitted voluntarily to our service for safety and stabilization. During her stay, her outpatient medication regimen can be thoroughly evaluated. Based on the history provided, I agree with the assessment and plan as outlined by the resident physician above. Alex Stark MD Attending Physician, Child & Adolescent Psychiatry Weekend On-Call Psychiatry documented in this encounter ED Notes * Trevin Martinez RN - 05/01/2013 1900 EST Report called to nurse Pt to be transported by this author, on [facility] 20 monitor * Trevin Martinez RN - 05/01/2013 1806 EST Evaluated by MICU team * Trevin Martinez RN - 05/01/2013 1749 EST Eating a sandwich * Haim Mendoza MD - 05/01/2013 1722 EST DOS: 05/01/2013 Chief Complaint Patient presents with ??? Suicidal Suicidal attempt yesterday. Took 2 metformin and 5 full Aspart insulin pens in an attempt to kill herself.FSBS 273 The patient is a 37 y.o. female who presents today with Suicidal HPI Comments: 37-year-old female with history of depression, self-harm ideation, and diabetes mellitus, states that at 5 PM yesterday (04/30/13) she self injected Lantus insulin x5 pre-filled pens (100units/mL, with 3 mL per prefilled pen), for a total of 1500 units of Lantus insulin, with suicidal intent. Patient states she awoke at about 3 AM sweaty and agitated, and drank orange juice. She states she awoke this morning, worked on the [employer] unit for several hours but did not feel well, then went home. She states she ate cake and ice cream around noon, then went to sleep. She woke to find EMSin her apartment. Initial fingerstick glucose on the scene was 242. Patient arrives providing the above history, and denies any other ingestions. She states she continues to have active suicidal ideation and intent. Suicidal The primary symptoms include dysphoric mood. Additional symptoms of the illness do not include no headaches or no abdominal pain. Drug Overdose Severity: Severe Timing: self-injected Lantus insulin 1500 units at 17:00 yesterday. Progression: Worsening Suspected agents: insulin glargine. Associated symptoms: suicidal ideation Associated symptoms: no abdominal pain, no confusion, no headaches and no shortness of breath Risk factors: mental illness (severe depression) Review of Systems Constitutional: Negative for fever and chills. HENT: Negative for neck stiffness. Eyes: Negative for visual disturbance. Respiratory: Negative for shortness of breath. Cardiovascular: Negative for chest pain. Gastrointestinal: Negative for abdominal pain. Genitourinary: Negative for dysuria. Musculoskeletal: Negative for back pain. Skin: Negative for rash. Neurological: Negative for headaches. Psychiatric/Behavioral: Positive for suicidal ideas, self-injury and dysphoric mood. Negative for confusion. All other systems reviewed and are negative. [...] ??? Diabetes Paternal Grandfather Vital Signs Temp: 36.5 ??C (97.7 ??F) Temp src: Tympanic Pulse: 98 Heart Rate: 101 BPM Cardiac Rhythm: Normal sinus rhythm Resp: 22 SpO2: 99 % BP: 148/79 mmHg BP Device: BP Machine Patient Position: Semi fowlers BP Cuff Location: Left arm O2 Device: None (Room air) Physical Exam Nursing note and vitals reviewed. Constitutional: She is oriented to person, place, and time. She appears well- developed and well-nourished. She is uncooperative. No distress. HENT: Head: Normocephalic and atraumatic. Right Ear: External ear normal. Left Ear: External ear normal. Nose: Nose normal. Eyes: Pupils are equal, round, and reactive to light. Right eye exhibits no discharge. Left eye exhibits no discharge. Neck: Normal range of motion. Neck supple. No tracheal deviation present. Cardiovascular: Normal rate, regular rhythm and normal heart sounds. Pulmonary/Chest: Breath sounds normal. No respiratory distress. Abdominal: Soft. There is no tenderness. Musculoskeletal: Normal range of motion. Neurological: She is alert and oriented to person, place, and time. She has normal strength. No cranial nerve deficit or sensory deficit. Coordination normal. Skin: No rash noted. Psychiatric: She is withdrawn. Thought content is not delusional. Cognition and memory are normal. She exhibits a depressed mood. She expresses suicidal ideation. She expresses no homicidal ideation.She expresses suicidal plans. She is noncommunicative. PORTABLE CHEST 1 VIEW (Canceled) Radiology orders: None Imaging Results None EKG 12-LEAD (Canceled) EKG 12-LEAD (Results Pending) Procedures ED Course: A medical screening exam was performed. 37-year-old female with depression, now long-acting insulinoverdose. Prehospital fingerstick glucose was 242. Fingerstick glucose on arrival to the ED was 70.This was treated with D50 one half amp IV, and repeat fingerstick 30 minutes later was 76. Patient was given D50 one amp IV, and repeat fingerstick at 17:18 was 40, and patient was diaphoretic with decreased responsiveness. She was again treated with D50 one amp and D. 10 drip was initiated. Patient has persistent hypoglycemia despite glucose administration consistent with her history of long-acting insulin overdose, and will require dextrose drip and intensive monitoring in the ICU. Disposition: Admitted The patient's pain was managed to an adequate level weighing risk vs. benefit of further medications. Upon departure from the Emergency Department, the patient's pain was 0 on a zero to ten scale. Condition at departure from the Emergency Department: Serious. MDM Number of Diagnoses or Management Options Depression: Insulin overdose (Lantus x1500 units): Suicidal ideation: Diagnosis management comments: CC 30-74 Amount and/or Complexity of Data Reviewed Clinical lab tests: ordered and reviewed Review and summarize past medical records: yes Discuss the patient with other providers: yes Critical Care Total time providing critical care: 30-74 minutes ( I spent 45 providing critical care services to this patient.) Final diagnoses: Insulin overdose (Lantus x1500 units) Suicidal ideation Depression PCP: Annette Sidhu 05/03/2013 19:07 * Hilda Madrigal RN - 05/01/2013 6597 EST 1/2 amp of D50 given per Dr. Mendoza. Pt A&O and not symptomatic. * Trevin Martinez, PRISCILA - 05/01/2013 1434 EST Fully awake, alert. Agreed to change to paper scrubs. Warns that she will not talk to crisis. Constant obs initiated. Dr Sharif did a brief medical screening on pt. documented in this encounter Miscellaneous Notes * Plan of Care - Chikis Krishnamurthy RN - 05/06/2013 0958 EST Problem: PAIN Goal: Patient???s Pain And Discomfort Are Adequately Managed Data: Patient resting in bed on am assessment. Patient states continues to have pain to lower back and left hip which is a chronic problem. Patient also states having headache but thinks it is related to not drinking caffeine. Action: Patient medicated with scheduled meds for pain as well as provided with a hot pack. MD alsopaged to change nicotine replacement to an inhaler instead of that patch per patient request. 1:1 sitter at bedside for patient safety. Response: will continue to monitor. Chikis Krishnamurthy RN 05/06/2013 9:55 * Plan of Care - Jayson Mcgregor RN - 05/05/2013 2319 EST [id number] Hilda Crowley 37 y.o. female Length of Stay: 5 day(s) Admitted: 05/01/2013 17:45 Service: Medicine Code Status: Full Code 20:05-- Data: Introduced and spoke to pt about her concerns. Seems she is upset and says she did not have fransisco good day. Action: Pt was readily consoled and appears in good spirits. She openly speaks about her suicide attempt. Response: Clarifies that she injected 5x full lantus pens (300u each). She states this [id number]. She indicates that she has requested to speak with psych MD, as Doctor Talon has recommended to speak up if she ever needs someone to speak to. Ryan says that she does not have any immediate concerns that need to be addressed by psych, but that she just wanted someone to talk to, and that shehas no need for that now. She expects to be discharged to psych, which she feels is appropriate. Jayson Mcgregor RN 23:19 05/05/2013 * Plan of Care - Alysa Kemp RN - 05/05/2013 0944 EST Problem: HOSPITAL ORIENTATION/SAFETY Goal: Oriented To Hospital Environment D: Assumed care of patient. Patient denies pain or SOB at this time 0900. Patient has patient attendant in the room for constant observation. Finger sticks stable D 10 rate decreased. Patient eat lunch before finger stick was obtained. Nursing staff was not aware that her lunch was delivered. Finger stick done at 13:47. Patient complaining that finger stick was not done exactly on time. MD aware.Patient stable. In addition patient tearful, stating we are not taking good care of her back pain. Patient requesting narcotics for pain. MD aware. No narcotics to be ordered or given per MD. Medication given as ordered. Ice packs and heat packs provided for back pain. A: See MAR and DOC flow sheets. R: Continue to monitor. * Plan of Care - Liseth Edmondson RN - 05/05/2013 0140 EST Problem: PAIN Goal: Patient???s Pain And Discomfort Are Adequately Managed D: Patient complained of 8/10 pain. Located lower back and hip. VSS, afebrile. Pt on room air, lungs clear. D10 @ 100cc/hr infusing well. Pt has 1:1 sitter. A: Pain interventions are tylenol, flexeril, and tramadol given prn as ordered. Pt encouraged to reposition frequently, pt up and ambulated in [place]. R: Will continue to monitor and assess. * Plan of Care - Abbe Lipscomb - 05/04/2013 1716 EST Problem: NUTRITION/DIET Goal: Nutrional Status Is Stable Or Improving Intervention: Assess nutritional status through lab values Data: Patient with Dextrose 10% running to prevent hypoglycemia related to suicide attempt with Lantus on 05/01/13. Blood sugars have been between 150 and 200 today. Action: Rate of D10 decreased per orders from family medicine team. Response: Rate was changed from 200 this am to 150 around noon and again now to 100 ml/hr. Will continue to monitor Blood sugars. Patient has complained of pain today in back which is chronic. Nursing giving medications when due.[phone] pager contacted for additional pain control. Lidocaine patch applied to lower back. One time dose of Tramadol given. Heat and Ice alternated. Patient out of bed to chair and ambulating in hallway for attempt at pain relief. Continues to complain of pain no lower than 6/10. Abbe Lipscomb RN 05/04/2013 17:11 * Plan of Care - Lesli Avilez RN - 05/04/2013 0405 EST Problem: PSYCHOSOCIAL Goal: Demonstrates Ability To [place] With Hospitalization Outcome: Ongoing Data: Pt cont to c/o lower back pain 6-8/10 on pain scale. Pt able to verbalize current health status and plan for [facility] 3 when bad available. Action: Tylenol 650 and ultram 50 mg PO both given with moderate relief verbalized by pt. Pt appears to be comfortable ambulating in hallway with sitter. Pt encouraged to verbalize feelings and talk about home life. Response: Cont to monitor. Pt awaiting move to [facility]. Lesli Avilez RN 05/04/2013 3:59 * Plan of Care - Abbe Lipscomb - 05/03/2013 1536 EST Problem: PAIN Goal: Patient???s Pain And Discomfort Are Adequately Managed Intervention: Offer non-pharmacologic pain management Interventions to include: positioning, hot and cold compresses etc. Data: Patient with back and hip pain which has been difficult to control over night. Patient complains of pain in back and left hip from previous injury. Action: Heat and ice applied to area. Tylenol and Naproxen given per schedule. Flexeril changed from RN to scheduled. Dr. Correa notified about pain and asked to start Tramadol schedule as patient takes per home. Response: One time order for Tramadol given. Will wait for scheduled med orders. Dr. Correa asked to D/C tele, Its OK, tele removed. Patient IV was stopped for 15 minutes to have patient take shower. Currently having conversation with Advanced Cooling Therapy Tech in the room, with good mood, looking forward to family visiting this afternoon. Abbe Lipscomb RN 05/03/2013 15:31 * Plan of Care - Chito Gallardo RN - 05/03/2013 0247 EST Problem: PAIN Goal: Patient???s Pain And Discomfort Are Adequately Managed Outcome: Ongoing D: patient reported 8/10 right arm pain from a previous d10 @ 250ml/hr infiltration of her right forearm. Infiltration was noticed at 15:00 on 05/02/2012. Assessment showed patient's arm slightly edematous, extremely painful to touch, and warm. A: evening pharmacist and evening IV nurse consulted for necessary interventions. Charge nurse alsonotified of earlier infiltration. Per recommendations patient's arm was elevated and ice was applied. R: will continue to monitor. * Plan of [place] - Chito Gallardo RN - 05/03/2013 0235 EST Problem: PAIN Goal: Patient???s Pain And Discomfort Are Adequately Managed Outcome: Not Met This Shift D: patient with chronic pain to her back and left hip exacerbated per patient by sleeping hospital bed. A: throughout evening shift gave patient PRN Flexeril 10mg, PRN tylenol 650 mg, applied heat, triedrepositioning, and offered patient recliner. None of these interventions decreased patient's pain. Contacted Family medicine of ineffective pain control. MD Mychal aware. Received order for and gave patient's home pain medication of Naproxen 500mg. Also gave patient Chamomile tea to help her relax. R: patient reported slight decrease in pain. Patient also appears more at ease and is able to sleep. Will continue to monitor. * Plan of Care - Candi Turner RN - 05/02/2013 1801 EST Problem: PSYCHOSOCIAL Goal: Demonstrates Ability To [place] With Hospitalization Data: pt with attempted suicide with 1500u lantus, now on D10 gtt. 1:1 sitter Action: following fs's qh. Seen by psych. Transfer orders to floor Response: remains on suicide precautions with 1:1 sitter, may not leave the hospital. FS's stable Candi Turner RN 05/02/2013 17:58 documented in this encounter Plan of Treatment Not on file documented as of this encounter Goals Goal Patient Goal Type Associated Problems Recent Progress Patient-Stated? Author HEMOGLOBIN A1C < 7.0 Result Component Type 2 diabetes mellitus ([facility]) 8.7(07/07/2015 5:05 EST) No Annmarie Vigil documented as of this encounter Procedures Procedure Name Priority Date/Time Associated Diagnosis Comments ECG REPORT - SCANNED 05/25/2013 9:19 EST ECG REPORT - SCANNED 05/07/2013 12:24 EST GLUCOSE, GLUCOMETER Routine 05/06/2013 1 1:28 EST GLUCOSE, GLUCOMETER Routine 05/06/2013 9 :37 EST GLUCOSE, GLUCOMETER Routine 05/06/2013 7 :27 EST COMPLETE BLOOD COUNT Routine 05/06/2013 6:26 EST CREATININE Routine 05/06/2013 6:26 EST ELECTROLYTES Routine 05/06/2013 6:26 EST GLUCOSE, GLUCOMETER Routine 05/06/2013 2 :38 EST GLUCOSE, GLUCOMETER Routine 05/05/2013 2 1:26 EST GLUCOSE, GLUCOMETER Routine 05/05/2013 1 7:18 EST GLUCOSE, GLUCOMETER Routine 05/05/2013 1 3:47 EST GLUCOSE, GLUCOMETER Routine 05/05/2013 7 :35 EST CREATININE Routine 05/05/2013 5:43 EST ELECTROLYTES Routine 05/05/2013 5:43 EST GLUCOSE, GLUCOMETER Routine 05/05/2013 5 :19 EST GLUCOSE, GLUCOMETER Routine 05/05/2013 1 :19 EST GLUCOSE, GLUCOMETER Routine 05/04/2013 2 1:03 EST GLUCOSE, GLUCOMETER Routine 05/04/2013 1 7:36 EST GLUCOSE, GLUCOMETER Routine 05/04/2013 1 4:51 EST GLUCOSE, GLUCOMETER Routine 05/04/2013 1 0:06 EST ELECTROLYTES Routine 05/04/2013 6:52 EST GLUCOSE, GLUCOMETER Routine 05/04/2013 6 :31 EST GLUCOSE, GLUCOMETER Routine 05/04/2013 3 :01 EST GLUCOSE, GLUCOMETER Routine 05/03/2013 2 2:31 EST GLUCOSE, GLUCOMETER Routine 05/03/2013 1 8:30 EST GLUCOSE, GLUCOMETER Routine 05/03/2013 1 2:04 EST GLUCOSE, GLUCOMETER Routine 05/03/2013 8 :32 EST ELECTROLYTES Routine 05/03/2013 7:15 EST GLUCOSE, GLUCOMETER Routine 05/03/2013 3 :59 EST GLUCOSE, GLUCOMETER Routine 05/02/2013 2 3:58 EST GLUCOSE, GLUCOMETER Routine 05/02/2013 1 9:57 EST GLUCOSE, GLUCOMETER Routine 05/02/2013 1 6:01 EST GLUCOSE, GLUCOMETER Routine 05/02/2013 1 3:41 EST GLUCOSE, GLUCOMETER Routine 05/02/2013 1 2:32 EST GLUCOSE, GLUCOMETER Routine 05/02/2013 1 1:04 EST GLUCOSE, GLUCOMETER Routine 05/02/2013 1 0:09 EST GLUCOSE, GLUCOMETER Routine 05/02/2013 8 :59 EST GLUCOSE, GLUCOMETER Routine 05/02/2013 8 :01 EST GLUCOSE, GLUCOMETER Routine 05/02/2013 7 :05 EST GLUCOSE, GLUCOMETER Routine 05/02/2013 6 :09 EST GLUCOSE, GLUCOMETER Routine 05/02/2013 5 :10 EST TEST, URINE Routine 05/02/2013 4:17 EST GLUCOSE, GLUCOMETER Routine 05/02/2013 4 :13 EST GLUCOSE, GLUCOMETER Routine 05/02/2013 3 :26 EST DIFFERENTIAL Routine 05/02/2013 3:22 EST COMPLETE BLOOD COUNT Routine 05/02/2013 3:22 EST COMPLETE BLOOD COUNT AND DIFFERENTIAL Routine 05/02/2013 3:22 EST BUN Routine 05/02/2013 3:22 EST CREATININE Routine 05/02/2013 3:22 EST ELECTROLYTES Routine 05/02/2013 3:22 EST GLUCOSE, GLUCOMETER Routine 05/02/2013 2 :06 EST GLUCOSE, GLUCOMETER Routine 05/02/2013 1 :13 EST RESPIRATORY CARE EVALUATION ONLY Routine 05/02/2013 0:06 EST GLUCOSE, GLUCOMETER Routine 05/02/2013 0 :06 EST GLUCOSE, GLUCOMETER Routine 05/01/2013 2 3:04 EST INPATIENT ADD-ON Routine 05/01/2013 22:3 5 EST GLUCOSE, GLUCOMETER Routine 05/01/2013 2 2:24 EST GLUCOSE, GLUCOMETER Routine 05/01/2013 2 1:58 EST GLUCOSE, GLUCOMETER Routine 05/01/2013 2 1:46 EST GLUCOSE, GLUCOMETER Routine 05/01/2013 2 1:04 EST GLUCOSE, GLUCOMETER Routine 05/01/2013 2 0:21 EST MRSA PCR Routine 05/01/2013 19:48 EST EKG 12-LEAD STAT 05/01/2013 19:39 EST INPATIENT ADD-ON Routine 05/01/2013 18:4 5 EST GLUCOSE, GLUCOMETER Routine 05/01/2013 1 8:39 EST GLUCOSE, GLUCOMETER Routine 05/01/2013 1 7:58 EST GLUCOSE, GLUCOMETER Routine 05/01/2013 1 7:13 EST GLUCOSE, GLUCOMETER Routine 05/01/2013 1 6:05 EST GLUCOSE, GLUCOMETER Routine 05/01/2013 1 5:27 EST TSH Routine 05/01/2013 15:15 EST ACETAMINOPHEN STAT 05/01/2013 15:15 EST SALICYLATE Routine 05/01/2013 15:15 EST ELECTROLYTES STAT 05/01/2013 15:15 EST documented in this encounter Results * ECG REPORT - SCANNED (05/25/2013 9:19 EST) 05/25/2013 9:19 EST Scan 2 Artistic Associate PROCEDURE/MINOR OSMAR GICAL ORDERABLES * ECG REPORT - SCANNED (05/07/2013 12:24 EST) 05/07/2013 12:2 4 EST Scan 2 Artistic Associate PROCEDURE/MINOR OSMAR GICAL ORDERABLES * (ABNORMAL) GLUCOSE, GLUCOMETER (05/06/2013 11:28 EST) Glucose, Fingerstick 104(H) 70 - 100 mg/dl [facility] Operating Theatre Technician ID [id number] [facility] Comment:Test Performed by [facility] 05/06/2013 11:2 8 EST 05/06/2013 11:33 EST Dilan Hernandes MD CHEMISTRY & BLOOD GA S ORDERABLES [facility] [address] [place] [address] * (ABNORMAL) GLUCOSE, GLUCOMETER (05/06/2013 9:37 EST) Glucose, Fingerstick 179(H) 70 - 100 mg/dl [facility] Operating Theatre Technician ID [id number] [facility] Comment:Test Performed by [facility] 05/06/2013 9:37 EST 05/06/2013 9:39 EST Dilan Hernandes MD CHEMISTRY & BLOOD GA S ORDERABLES Performing Organization Address [facility] Co de Phone Number [facility] [address] [phone] * (ABNORMAL) GLUCOSE, GLUCOMETER (05/06/2013 7:27 EST) Glucose, Fingerstick 138(H) 70 - 100 mg/dl [facility] Operating Theatre Technician ID [id number] [facility] Comment:Test Performed by [facility] 05/06/2013 7:27 EST 05/06/2013 9:35 EST Dilan Hernandes MD CHEMISTRY & BLOOD GA S ORDERABLES Performing Organization Address [facility] Co de Phone Number [facility] [address] [place] [address] * (ABNORMAL) HEMAGRAM (05/06/2013 6:26 EST) WBC 10.09 4.0 - 12.4 K/cmm [facility] RBC 4.36 3.86 - 5.04 M/cmm [facility] Hemoglobin 13.7 11.6 - 15.2 gm/dl [facility] HCT 39.1 34.9 - 44.4 % [facility] MCV 89 81 - 98 fl [facility] MCH 31.4 26.7 - 33.3 pg [facility] MCHC 35.1 32.1 - 35.9 gm/dl [facility] PLT 329(H) 141 - 320 K/cmm [facility] RDW-CV 12.2 11.7 - 14.6 % [facility] Blood specimen (specimen) 05/06/2013 6:26 EST 05/06/2013 6:53 EST Urmila Mendez MD HEMATOLOGY & PF4 ORD ERABLES Performing Organization Address [facility] [facility] Co de Phone Number [facility] [address] [place] [address] * CREATININE (05/06/2013 6:26 EST) Creatinine 0.55 0.52 - 1.04 mg/dl [facility] GFR, Calculated >60 >60 ml/min/1.7 3m2 [facility] Blood specimen (specimen) 05/06/2013 6:26 EST 05/06/2013 6:53 EST Annette Guajardo MD CHEMISTRY & BLOOD GAS ORDERABLES Performing Organization Address [facility] Phone Number [facility] [address] [place] [address] * (ABNORMAL) ELECTROLYTES (05/06/2013 6:26 EST) Sodium 134(L) 136 - 145 mEq/L [facility] Potassium 4.6 3.5 - 5.0 mEq/L [facility] Chloride 96 96 - 110 mEq/L [facility] CO2 25 24 - 32 mEq/L [facility] Blood specimen (specimen) 05/06/2013 6:26 EST 05/06/2013 6:53 EST Kayley Correa DO CHEMISTRY & BLOOD GA S ORDERABLES Performing Organization Address [facility] de Phone Number [facility] [address] [place] [address] * (ABNORMAL) GLUCOSE, GLUCOMETER (05/06/2013 2:38 EST) Glucose, Fingerstick 156(H) 70 - 100 mg/dl [facility] Operating Theatre Technician ID [id number] [facility] Comment:Test Performed by [facility] 05/06/2013 2:38 EST 05/06/2013 2:56 EST Dilan Hernandes MD CHEMISTRY & BLOOD GA S ORDERABLES Performing Organization Address [facility] Co de Phone Number [facility] [address] [place] [address] * (ABNORMAL) GLUCOSE, GLUCOMETER (05/05/2013 21:26 EST) Glucose, Fingerstick 133(H) 70 - 100 mg/dl [facility] Operating Theatre Technician ID [id number] [facility] Comment:Test Performed by [facility] 05/05/2013 21:2 6 EST 05/05/2013 21:27 EST Dilan Hernandes MD CHEMISTRY & BLOOD GA S ORDERABLES Performing Organization Address [facility] Co de Phone Number [facility] [address] [place] [address] * (ABNORMAL) GLUCOSE, GLUCOMETER (05/05/2013 17:18 EST) Glucose, Fingerstick 128(H) 70 - 100 mg/dl [facility] Operating Theatre Technician ID [id number] [facility] Comment:Test Performed by [facility] 05/05/2013 17:1 8 EST 05/05/2013 17:19 EST Dilan Hernandes MD CHEMISTRY & BLOOD GA S ORDERABLES Performing Organization Address [facility] Co de Phone Number [facility] [address] [place] [id number] * (ABNORMAL) GLUCOSE, GLUCOMETER (05/05/2013 13:47 EST) Glucose, Fingerstick 244(H) 70 - 100 mg/dl [facility] Operating Theatre Technician ID [id number] [facility] Comment:tnurs 05/05/2013 13:4 7 EST 05/05/2013 13:48 EST Dilan Hernandes MD CHEMISTRY & BLOOD GA S ORDERABLES Performing Organization Address [facility] Co de Phone Number [facility] [address] [place] [address] * GLUCOSE, GLUCOMETER (05/05/2013 7:35 EST) Glucose, Fingerstick 99 70 - 100 mg/dl [facility] Operating Theatre Technician ID [id number] [facility] Comment:Test Performed by [facility] 05/05/2013 7:35 EST 05/05/2013 7:38 EST Dilan Hernandes MD CHEMISTRY & BLOOD GA S ORDERABLES Performing Organization Address [facility] Co de Phone Number [facility] [address] [place] [address] * (ABNORMAL) CREATININE (05/05/2013 5:43 EST) Creatinine 0.51(L) 0.52 - 1.04 mg/dl [facility] GFR, Calculated >60 >60 ml/min/1.7 3m2 [facility] Blood specimen (specimen) 05/05/2013 5:43 EST 05/05/2013 6:26 EST Annette Guajardo MD CHEMISTRY & BLOOD GAS ORDERABLES Performing Organization Address [facility] de Phone Number [facility] [address] [place] [address] * (ABNORMAL) ELECTROLYTES (05/05/2013 5:43 EST) Sodium 134(L) 136 - 145 mEq/L [facility] Potassium 4.7 3.5 - 5.0 mEq/L [facility] Chloride 99 96 - 110 mEq/L [facility] CO2 25 24 - 32 mEq/L [facility] Blood specimen (specimen) 05/05/2013 5:43 EST 05/05/2013 6:26 EST Kayley Correa DO CHEMISTRY & BLOOD GA S ORDERABLES Performing Organization Address [facility]/ZIP Co de Phone Number [facility] [address] [place] [address] * (ABNORMAL) GLUCOSE, GLUCOMETER (05/05/2013 5:19 EST) Glucose, Fingerstick 116(H) 70 - 100 mg/dl [facility] Operating Theatre Technician ID [id number] [facility] Comment:Test Performed by [facility] 05/05/2013 5:19 EST 05/05/2013 5:26 EST Dilan Hernandes MD CHEMISTRY & BLOOD GA S ORDERABLES Performing Organization Address City/[facility]/ZIP Co de Phone Number [facility] [address] [place] [address] * (ABNORMAL) GLUCOSE, GLUCOMETER (05/05/2013 1:19 EST) Glucose, Fingerstick 149(H) 70 - 100 mg/dl [facility] Operating Theatre Technician ID [id number] [facility] Comment:Test Performed by [facility] 05/05/2013 1:19 EST 05/05/2013 1:21 EST Dilan Hernandes MD CHEMISTRY & BLOOD GA S ORDERABLES Performing Organization Address City/[facility]/ZIP Co de Phone Number [facility] [address] [place] [address] * (ABNORMAL) GLUCOSE, GLUCOMETER (05/04/2013 21:03 EST) Glucose, Fingerstick 117(H) 70 - 100 mg/dl [facility] Operating Theatre Technician ID [id number] [facility] Comment:Test Performed by [facility] 05/04/2013 21:0 3 EST 05/04/2013 21:10 EST Dilan Hernandes MD CHEMISTRY & BLOOD GA S ORDERABLES Performing Organization Address City/[facility]/ZIP Co de Phone Number [facility] [address] [place] [address] * (ABNORMAL) GLUCOSE, GLUCOMETER (05/04/2013 17:36 EST) Glucose, Fingerstick 110(H) 70 - 100 mg/dl [facility] Operating Theatre Technician ID [id number] [facility] Comment:Test Performed by [facility] 05/04/2013 17:3 6 EST 05/04/2013 17:39 EST Dilan Hernandes MD CHEMISTRY & BLOOD GA S ORDERABLES Performing Organization Address [facility] de Phone Number [facility] [address] [place] [address] * (ABNORMAL) GLUCOSE, GLUCOMETER (05/04/2013 14:51 EST) Glucose, Fingerstick 176(H) 70 - 100 mg/dl [facility] Operating Theatre Technician ID [id number] [facility] Comment:Test Performed by [facility] 05/04/2013 14:5 1 EST 05/04/2013 15:11 EST Dilan Hernandes MD CHEMISTRY & BLOOD GA S ORDERABLES Performing Organization Address [facility] de Phone Number [facility] [address] [place] [address] * (ABNORMAL) GLUCOSE, GLUCOMETER (05/04/2013 10:06 EST) Glucose, Fingerstick 166(H) 70 - 100 mg/dl [facility] Operating Theatre Technician ID [id number] [facility] Comment:Test Performed by [facility] 05/04/2013 10:0 6 EST 05/04/2013 10:08 EST Dilan Hernandes MD CHEMISTRY & BLOOD GA S ORDERABLES Performing Organization Address [facility] de Phone Number [facility] [address] [place] [address] * (ABNORMAL) ELECTROLYTES (05/04/2013 6:52 EST) Sodium 134(L) 136 - 145 mEq/L [facility] Potassium 3.8 3.5 - 5.0 mEq/L [facility] Chloride 100 96 - 110 mEq/L [facility] CO2 24 24 - 32 mEq/L [facility] Blood specimen (specimen) 05/04/2013 6:52 EST 05/04/2013 7:07 EST Kayley Correa CHEMISTRY & BLOOD GA S ORDERABLES Performing Organization Address [facility] de Phone Number [facility] [address] [place] [address] * (ABNORMAL) GLUCOSE, GLUCOMETER (05/04/2013 6:31 EST) Glucose, Fingerstick 138(H) 70 - 100 mg/dl [facility] Operating Theatre Technician ID [id number] [facility] Comment:Test Performed by [facility] 05/04/2013 6:31 EST 05/04/2013 7:21 EST Dilan Hernandes MD CHEMISTRY & BLOOD GA S ORDERABLES Performing Organization Address [facility] Phone Number [facility] [address] [place] [address] * (ABNORMAL) GLUCOSE, GLUCOMETER (05/04/2013 3:01 EST) Glucose, Fingerstick 171(H) 70 - 100 mg/dl [facility] Operating Theatre Technician ID [id number] [facility] Comment:Test Performed by [facility] 05/04/2013 3:01 EST 05/04/2013 4:44 EST Dilan Hernandes MD CHEMISTRY & BLOOD GA S ORDERABLES Performing Organization Address [facility] Phone Number [facility] [address] [place] [address] * (ABNORMAL) GLUCOSE, GLUCOMETER (05/03/2013 22:31 EST) Glucose, Fingerstick 150(H) 70 - 100 mg/dl [facility] Operating Theatre Technician ID [id number] [facility] Comment:Test Performed by [facility] 05/03/2013 22:3 1 EST 05/03/2013 22:32 EST Dilan Hernandes MD CHEMISTRY & BLOOD GA S ORDERABLES Performing Organization Address [facility] de Phone Number [facility] [address] [place] [address] * (ABNORMAL) GLUCOSE, GLUCOMETER (05/03/2013 18:30 EST) Glucose, Fingerstick 130(H) 70 - 100 mg/dl [facility] Operating Theatre Technician ID [id number] [facility] Comment:Test Performed by [facility] 05/03/2013 18:3 0 EST 05/03/2013 18:32 EST Dilan Hernandes MD CHEMISTRY & BLOOD GA S ORDERABLES Performing Organization Address [facility] Phone Number [facility] [address] [place] [address] * (ABNORMAL) GLUCOSE, GLUCOMETER (05/03/2013 12:04 EST) Glucose, Fingerstick 170(H) 70 - 100 mg/dl [facility] Operating Theatre Technician ID [id number] [facility] Comment:Test Performed by [facility] 05/03/2013 12:0 4 EST 05/03/2013 12:05 EST Dilan Hernandes MD CHEMISTRY & BLOOD GA S ORDERABLES Performing Organization Address [facility] Phone Number [facility] [address] [place] [address] * (ABNORMAL) GLUCOSE, GLUCOMETER (05/03/2013 8:32 EST) Glucose, Fingerstick 123(H) 70 - 100 mg/dl [facility] Operating Theatre Technician ID [id number] [facility] Comment:Test Performed by [facility] 05/03/2013 8:32 EST 05/03/2013 8:46 EST Dilan Hernandes MD CHEMISTRY & BLOOD GA S ORDERABLES Performing Organization Address [facility]/ZIP Co de Phone Number [facility] [address] [place] [address] * (ABNORMAL) ELECTROLYTES (05/03/2013 7:15 EST) Sodium 135(L) 136 - 145 mEq/L [facility] Potassium 3.9 3.5 - 5.0 mEq/L [facility] Chloride 100 96 - 110 mEq/L [facility] CO2 25 24 - 32 mEq/L [facility] Blood specimen (specimen) 05/03/2013 7:15 EST 05/03/2013 7:55 EST Kayley Correa DO CHEMISTRY & BLOOD GA S ORDERABLES Performing Organization Address [facility] Co de Phone Number [facility] [address] [place] [address] * (ABNORMAL) GLUCOSE, GLUCOMETER (05/03/2013 3:59 EST) Glucose, Fingerstick 146(H) 70 - 100 mg/dl [facility] Operating Theatre Technician ID [id number] [facility] Comment:Test Performed by [facility] 05/03/2013 3:59 EST 05/03/2013 4:01 EST Dilan Hernandes MD CHEMISTRY & BLOOD GA S ORDERABLES Performing Organization Address [facility] Co de Phone Number [facility] [address] [place] [address] * (ABNORMAL) GLUCOSE, GLUCOMETER (05/02/2013 23:58 EST) Glucose, Fingerstick 127(H) 70 - 100 mg/dl [facility] Operating Theatre Technician ID [id number] [facility] Comment:Test Performed by [facility] 05/02/2013 23:5 8 EST 05/03/2013 Dilan Hernandes MD CHEMISTRY & BLOOD GA S ORDERABLES [facility] [address] [place] [address] * (ABNORMAL) GLUCOSE, GLUCOMETER (05/02/2013 19:57 EST) Glucose, Fingerstick 161(H) 70 - 100 mg/dl [facility] Operating Theatre Technician ID [id number] [facility] Comment:Test Performed by [facility] 05/02/2013 19:5 7 EST 05/02/2013 19:59 EST Dilan Hernandes MD CHEMISTRY & BLOOD GA S ORDERABLES Performing Organization Address [facility] Co de Phone Number [facility] [address] [place] [address] * (ABNORMAL) GLUCOSE, GLUCOMETER (05/02/2013 16:01 EST) Glucose, Fingerstick 108(H) 70 - 100 mg/dl [facility] Operating Theatre Technician ID [id number] [facility] Comment:Test Performed by [facility] 05/02/2013 16:0 1 EST 05/02/2013 16:03 EST Dilan Hernandes MD CHEMISTRY & BLOOD GA S ORDERABLES Performing Organization Address [facility] Co de Phone Number [facility] [address] [place] [id number] * GLUCOSE, GLUCOMETER (05/02/2013 13:41 EST) Glucose, Fingerstick 99 70 - 100 mg/dl [facility] Operating Theatre Technician ID [id number] [facility] Comment:Test Performed by [facility] 05/02/2013 13:4 1 EST 05/02/2013 13:42 EST Dilan Hernandes MD CHEMISTRY & BLOOD GA S ORDERABLES Performing Organization Address [facility] Co de Phone Number [facility] [address] [place] [address] * GLUCOSE, GLUCOMETER (05/02/2013 12:32 EST) Glucose, Fingerstick 91 70 - 100 mg/dl [facility] Operating Theatre Technician ID [id number] [facility] Comment:Test Performed by [facility] 05/02/2013 12:3 2 EST 05/02/2013 12:33 EST Alaina Chung MD CHEMISTRY & BLOOD GA S ORDERABLES Performing Organization Address [facility] Co sd Phone Number [facility] [address] [place] [address] * (ABNORMAL) GLUCOSE, GLUCOMETER (05/02/2013 11:04 EST) Glucose, Fingerstick 120(H) 70 - 100 mg/dl [facility] Operating Theatre Technician ID [id number] [facility] Comment:Test Performed by [facility] 05/02/2013 11:0 4 EST 05/02/2013 11:05 EST Alaina Chung MD CHEMISTRY & BLOOD GA S ORDERABLES Performing Organization Address [facility] Phone Number [facility] [address] [place] [address] * (ABNORMAL) GLUCOSE, GLUCOMETER (05/02/2013 10:09 EST) Glucose, Fingerstick 209(H) 70 - 100 mg/dl [facility] Operating Theatre Technician ID [id number] [facility] Comment:Test Performed by [facility] 05/02/2013 10:0 9 EST 05/02/2013 10:10 EST Alaina Chung MD CHEMISTRY & BLOOD GA S ORDERABLES Performing Organization Address [facility] Co sd Phone Number [facility] [address] [place] [address] * (ABNORMAL) GLUCOSE, GLUCOMETER (05/02/2013 8:59 EST) Glucose, Fingerstick 155(H) 70 - 100 mg/dl [facility] Operating Theatre Technician ID [id number] [facility] Comment:Test Performed by [facility] 05/02/2013 8:59 EST 05/02/2013 9:00 EST Alaina Chung MD CHEMISTRY & BLOOD GA S ORDERABLES Performing Organization Address [facility] Co de Phone Number [facility] [address] [place] [address] * (ABNORMAL) GLUCOSE, GLUCOMETER (05/02/2013 8:01 EST) Glucose, Fingerstick 136(H) 70 - 100 mg/dl [facility] Operating Theatre Technician ID [id number] [facility] Comment:Test Performed by [facility] 05/02/2013 8:01 EST 05/02/2013 8:09 EST Alaina Chung MD CHEMISTRY & BLOOD GA S ORDERABLES Performing Organization Address [facility] Phone Number [facility] [address] [place] [address] * GLUCOSE, GLUCOMETER (05/02/2013 7:05 EST) Glucose, Fingerstick 88 70 - 100 mg/dl [facility] Operating Theatre Technician ID [id number] [facility] Comment:Test Performed by [facility] 05/02/2013 7:05 EST 05/02/2013 7:07 EST Alaina Chung MD CHEMISTRY & BLOOD GA S ORDERABLES Performing Organization Address [facility] de Phone Number [facility] [address] [place] [address] * GLUCOSE, GLUCOMETER (05/02/2013 6:09 EST) Glucose, Fingerstick 83 70 - 100 mg/dl [facility] Operating Theatre Technician ID [id number] [facility] Comment:Test Performed by [facility] 05/02/2013 6:09 EST 05/02/2013 6:10 EST Alaina Chung MD CHEMISTRY & BLOOD GA S ORDERABLES Performing Organization Address City/[facility]/ZIP Co de Phone Number [facility] [address] [place] [address] * (ABNORMAL) GLUCOSE, GLUCOMETER (05/02/2013 5:10 EST) Glucose, Fingerstick 140(H) 70 - 100 mg/dl [facility] Operating Theatre Technician ID [id number] [facility] Comment:Test Performed by [facility] Services 05/02/2013 5:10 EST 05/02/2013 5:11 EST Alaina Chung MD CHEMISTRY & BLOOD GA S ORDERABLES Performing Organization Address [facility] Co de Phone Number [facility] [address] [place] [address] * TEST, URINE (05/02/2013 4:17 EST) Result- Test, Ur Negative [facility] Comment: NOTE: False negative results may occur in women who are beyond 5-8 weeks gestation. Diagnosis of should be based on a correlation of test results with typical clinical signs and symptoms. Urine specimen (specimen) URINE / Unknown 05/02/2013 4:17 EST 05/02/2013 4:21 EST Marcin Marshall MD URINALYSIS ORDERABLE S Performing Organization Address [facility] Co de Phone Number [facility] [address] [place] [address] * (ABNORMAL) GLUCOSE, GLUCOMETER (05/02/2013 4:13 EST) Glucose, Fingerstick 137(H) 70 - 100 mg/dl [facility] Operating Theatre Technician ID [id number] [facility] Comment:[facility] 05/02/2013 4:13 EST 05/02/2013 4:14 EST Alaina Chung MD CHEMISTRY & BLOOD GA S ORDERABLES Performing Organization Address [facility] Co de Phone Number [facility] [address] [place] [address] * (ABNORMAL) GLUCOSE, GLUCOMETER (05/02/2013 3:26 EST) Glucose, Fingerstick 130(H) 70 - 100 mg/dl [facility] Operating Theatre Technician ID [id number] [facility] Comment:Test Performed by [facility] 05/02/2013 3:26 EST 05/02/2013 3:37 EST Alaina Chung MD CHEMISTRY & BLOOD GA S ORDERABLES Performing Organization Address [facility] de Phone Number [facility] [address] [place] [address] * (ABNORMAL) DIFFERENTIAL (05/02/2013 3:22 EST) Neutrophils 44.0(L) 45.5 - 79.7 % [facility] Lymphocytes 54.0(H) 15.0 - 46.8 % [facility] Eosinophils 2.0 0.6 - 6.9 % [facility] ABS Neutrophils 5.71 2.20 - 8.85 K/cmm [facility] ABS Lymphs 7.00(H) 1.09 - 3.30 K/cmm [facility] ABS Eosinophils 0.26 0.03 - 0.61 K/cmm [facility] RBC Morphology 1+ [facility] Comment:Anisocytosis Type of Diff: Manual [facility] 05/02/2013 3:22 EST 05/02/2013 3:50 EST Marcin Marshall MD HEMATOLOGY & PF4 ORD ERABLES Performing Organization Address [facility] de Phone Number [facility] [address] [place] [address] * (ABNORMAL) HEMAGRAM (05/02/2013 3:22 EST) WBC 12.97(H) 4.0 - 12.4 K/cmm [facility] RBC 4.20 3.86 - 5.04 M/cmm [facility] Hemoglobin 13.0 11.6 - 15.2 gm/dl [facility] HCT 38.2 34.9 - 44.4 % [facility] MCV 91 81 - 98 fl [facility] MCH 31.0 26.7 - 33.3 pg [facility] MCHC 34.1 32.1 - 35.9 gm/dl [facility] PLT 332(H) 141 - 320 K/cmm [facility] RDW-CV 12.6 11.7 - 14.6 % [facility] 05/02/2013 3:22 EST 05/02/2013 3:50 EST Marcin Marshall MD HEMATOLOGY & PF4 ORD ERABLES Performing Organization Address [facility] Co de Phone Number [facility] [address] [place] [address] * (ABNORMAL) ELECTROLYTES (05/02/2013 3:22 EST) Sodium 135(L) 136 - 145 mEq/L [facility] Potassium 3.8 3.5 - 5.0 mEq/L [facility] Chloride 102 96 - 110 mEq/L [facility] CO2 25 24 - 32 mEq/L [facility] Blood specimen (specimen) 05/02/2013 3:22 EST 05/02/2013 3:50 EST Marcin Marshall MD CHEMISTRY & BLOOD GA S ORDERABLES Performing Organization Address [facility] Phone Number [facility] [address] [place] [address] * (ABNORMAL) CREATININE (05/02/2013 3:22 EST) Creatinine 0.47(L) 0.52 - 1.04 mg/dl [facility] GFR, Calculated >60 >60 ml/min/1.7 3m2 [facility] Blood specimen (specimen) 05/02/2013 3:22 EST 05/02/2013 3:50 EST Marcin Marshall MD CHEMISTRY & BLOOD GA S ORDERABLES Performing Organization Address [facility] de Phone Number [facility] [address] [place] [address] * (ABNORMAL) BUN (05/02/2013 3:22 EST) BUN 6(L) 10 - 26 mg/dl [facility] Blood specimen (specimen) 05/02/2013 3:22 EST 05/02/2013 3:50 EST Marcin Marshall MD CHEMISTRY & BLOOD GA S ORDERABLES Performing Organization Address [facility] de Phone Number [facility] [address] [place] [address] * (ABNORMAL) GLUCOSE, GLUCOMETER (05/02/2013 2:06 EST) Glucose, Fingerstick 149(H) 70 - 100 mg/dl [facility] Operating Theatre Technician ID [id number] [facility] Comment:Test Performed by [facility] 05/02/2013 2:06 EST 05/02/2013 2:08 EST Alaina Chung MD CHEMISTRY & BLOOD GA S ORDERABLES Performing Organization Address [facility] Phone Number [facility] [address] [place] [address] * (ABNORMAL) GLUCOSE, GLUCOMETER (05/02/2013 1:13 EST) Glucose, Fingerstick 147(H) 70 - 100 mg/dl [facility] Operating Theatre Technician ID [id number] [facility] Comment:Test Performed by [facility] [employer] [facility] 05/02/2013 1:13 EST 05/02/2013 1:14 EST Alaina Chung MD CHEMISTRY & BLOOD GA S ORDERABLES Performing Organization Address [facility] Phone Number [facility] [address] [place] [address] * (ABNORMAL) GLUCOSE, GLUCOMETER (05/02/2013 0:06 EST) Glucose, Fingerstick 123(H) 70 - 100 mg/dl [facility] Operating Theatre Technician ID [id number] [facility] Comment:Test Performed by [facility] 05/02/2013 0:06 EST 05/02/2013 0:07 EST Alaina Chung MD CHEMISTRY & BLOOD GA S ORDERABLES Performing Organization Address [facility] Co de Phone Number [facility] [address] [place] [address] * (ABNORMAL) GLUCOSE, GLUCOMETER (05/01/2013 23:04 EST) Glucose, Fingerstick 107(H) 70 - 100 mg/dl [facility] Operating Theatre Technician ID [id number] [facility] Comment:Test Performed by [facility] Services 05/01/2013 23:0 4 EST 05/01/2013 23:07 EST Alaina Chung MD CHEMISTRY & BLOOD GA S ORDERABLES Performing Organization Address [facility] de Phone Number [facility] [address] [place] [address] * INPATIENT ADD-ON (05/01/2013 22:35 EST) Tests to be added URINE [facility] Number for problems [id number] [facility] Accession number NO URINE [facility] 05/01/2013 22:3 5 EST 05/01/2013 22:43 EST Marcin Marshall MD HEMATOLOGY & PF4 ORD ERABLES Performing Organization Address [facility] de Phone Number [facility] [address] [place] [address] * (ABNORMAL) GLUCOSE, GLUCOMETER (05/01/2013 22:24 EST) Glucose, Fingerstick 137(H) 70 - 100 mg/dl [facility] Operating Theatre Technician ID [id number] [facility] Comment:Test Performed by [facility] Services 05/01/2013 22:2 4 EST 05/01/2013 22:25 EST Alaina Chung MD CHEMISTRY & BLOOD GA S ORDERABLES Performing Organization Address [facility] Co de Phone Number [facility] [address] [place] [address] * (ABNORMAL) GLUCOSE, GLUCOMETER (05/01/2013 21:58 EST) Glucose, Fingerstick 201(H) 70 - 100 mg/dl [facility] Operating Theatre Technician ID [id number] [facility] Comment:Test Performed by [facility] Services 05/01/2013 21:5 8 EST 05/01/2013 22:05 EST Alaina Chung MD CHEMISTRY & BLOOD GA S ORDERABLES Performing Organization Address City/[facility]/ZIP Co de Phone Number [facility] [address] [place] [address] * (ABNORMAL) GLUCOSE, GLUCOMETER (05/01/2013 21:46 EST) Glucose, Fingerstick 41(LL) 70 - 100 mg/dl [facility] Operating Theatre Technician ID [id number] [facility] Comment:Test Performed by [facility] Services 05/01/2013 21:4 6 EST 05/01/2013 22:05 EST Alaina Chung MD CHEMISTRY & BLOOD GA S ORDERABLES Performing Organization Address [facility]/ZIP Co de Phone Number [facility] [address] [place] [address] * (ABNORMAL) GLUCOSE, GLUCOMETER (05/01/2013 21:04 EST) Glucose, Fingerstick 67(L) 70 - 100 mg/dl [facility] Operating Theatre Technician ID [id number] [facility] Comment:Test Performed by [facility] Services 05/01/2013 21:0 4 EST 05/01/2013 21:09 EST Alaina Chung MD CHEMISTRY & BLOOD GA S ORDERABLES Performing Organization Address City/[facility]/ZIP Co de Phone Number [facility] [address] [place] [address] * (ABNORMAL) GLUCOSE, GLUCOMETER (05/01/2013 20:21 EST) Glucose, Fingerstick 62(L) 70 - 100 mg/dl [facility] Operating Theatre Technician ID [id number] [facility] Comment:Test Performed by [facility] Services 05/01/2013 20:2 1 EST 05/01/2013 20:22 EST Alaina Chung MD CHEMISTRY & BLOOD GA S ORDERABLES Performing Organization Address [facility] de Phone Number [facility] [address] [place] [address] * MRSA MOLECULAR DETECTION (05/01/2013 19:48 EST) Specimen Description Nasal [facility] Result No Staphylococcus aureus detected by PCR. [facility] Specimen of unknown material (specimen) TOPOGRAPHY UNKNOWN / Unknown 05/01/2013 19:48 EST 05/01/2013 21:15 EST Rodney Jose MD MICROBIOLOGY - GEN ERAL ORDERABLES Performing Organization Address [facility] de Phone Number [facility] [address] [place] [address] * EKG 12-LEAD (05/01/2013 19:39 EST) 05/01/2013 19:3 9 EST Narrative FA EKG - 05/04/2013 15:27 EST ?[facility] ? Test Date: ?2013-05-01 Pat Name: ? HILDA CROWLEY ? Department: ?? [facility] ? Room: ? M417 Gender: ? 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 [id number] : ?1975 ? Requested By: RODNEY JOSE MD Order Number: [id number] ? Reading : ?? GAIL BOSS MD ? Measurements Intervals ?[place] ? Rate: ? 93 ? P: ?54 TN: ? 129 ?QRS: ?47 QRSD: ? 87 ? T: ?12 QT: ? 368 ? QTc: ?418 ? Interpretive Statements SINUS RHYTHM NONSPECIFIC T-WAVE ABNORMALITY I have reviewed the tracing and have either agreed or edited the findings in this report. Electronically Signed On 05-04-13 15:27:35 EST by GAIL BOSS MD. Procedure Note Gail Boss MD - 05/04/2013 [facility] Test Date: 2013-05-01 Pat Name: HILDA CROWLEY Department: Juanito Bright Room: [facility] Gender: F Station Installation Supervisor: [id number] : 1975 Requested By: RODNEY JOSE MD Order Number: [id number] Reading MD: GAIL BOSS MD Measurements Intervals [place] Rate: 93 P: 54 TN: 129 QRS: 47 QRSD: 87 T: 12 QT: 368 QTc: 418 Interpretive Statements SINUS RHYTHM NONSPECIFIC T-WAVE ABNORMALITY I have reviewed the tracing and have either agreed or edited the findingsin this report. Electronically Signed On 05-04-13 15:27:35 EST by JAVIER PATTERSON. Rodney Jose MD CARDIAC ECG ORDERA BLES Performing Organization Address [facility] Co de Phone Number FA EKG * INPATIENT ADD-ON (05/01/2013 18:45 EST) Tests to be added SALICYLATE [facility] Comment:TSH Number for problems [id number] [facility] Accession number [id number] [facility] 05/01/2013 18:4 5 EST 05/01/2013 18:47 EST Rodney Jose MD HEMATOLOGY & PF4 O RDERABLES Performing Organization Address [facility] Co de Phone Number [facility] [address] [place] [address] * (ABNORMAL) GLUCOSE, GLUCOMETER (05/01/2013 18:39 EST) Glucose, Fingerstick 110(H) 70 - 100 mg/dl [facility] Operating Theatre Technician ID [id number] [facility] Comment:Test Performed by [facility] Services 05/01/2013 18:3 9 EST 05/01/2013 18:40 EST Alaina Chung MD CHEMISTRY & BLOOD GA S ORDERABLES Performing Organization Address [facility] Co de Phone Number [facility] [address] [place] [address] * GLUCOSE, GLUCOMETER (05/01/2013 17:58 EST) Glucose, Fingerstick 97 70 - 100 mg/dl [facility] Operating Theatre Technician ID [id number] [facility] Comment:Test Performed by [facility] Services 05/01/2013 17:5 8 EST 05/01/2013 18:00 EST Alaina Chung MD CHEMISTRY & BLOOD GA S ORDERABLES Performing Organization Address [facility] Co de Phone Number [facility] [address] [place] [address] * (ABNORMAL) GLUCOSE, GLUCOMETER (05/01/2013 17:13 EST) Glucose, Fingerstick 40(LL) 70 - 100 mg/dl [facility] Operating Theatre Technician ID [id number] [facility] Comment:Test Performed by [facility] 05/01/2013 17:1 3 EST 05/01/2013 17:17 EST Provider Unknown CHEMISTRY & BLOOD GA S ORDERABLES Performing Organization Address [facility] Co de Phone Number [facility] [address] [place] [address] * GLUCOSE, GLUCOMETER (05/01/2013 16:05 EST) Glucose, Fingerstick 76 70 - 100 mg/dl [facility] Operating Theatre Technician ID [id number] [facility] Comment:Test Performed by [facility] 05/01/2013 16:0 5 EST 05/01/2013 16:06 EST Provider Unknown CHEMISTRY & BLOOD GA S ORDERABLES Performing Organization Address [facility] Co de Phone Number [facility] [address] [place] [address] * GLUCOSE, GLUCOMETER (05/01/2013 15:27 EST) Glucose, Fingerstick 70 70 - 100 mg/dl [facility] Operating Theatre Technician ID [id number] [facility] Comment:Test Performed by [facility] Services 05/01/2013 15:2 7 EST 05/01/2013 15:29 EST Denton Tucker MD CHEMISTRY & BLOOD GA S ORDERABLES Performing Organization Address [facility] Phone Number [facility] [address] [place] [address] * TSH (05/01/2013 15:15 EST) TSH 0.46 0.35 - 5.00 uIU/ml [facility] 05/01/2013 15:1 5 EST 05/01/2013 15:35 EST Haim Mendoza MD CHEMISTRY & BLOOD G ORDERABLES Performing Organization Address [facility] Phone Number [facility] [address] [place] [address] * SALICYLATE (05/01/2013 15:15 EST) Salicylate <1.0 mg/dl [facility] Comment: Negative = <2 mg/dl Therapeutic = <20 mg/dl Toxic = >30 mg/dl 05/01/2013 15:1 5 EST 05/01/2013 15:35 EST Haim Mendoza MD CHEMISTRY & BLOOD G ORDERABLES Performing Organization Address [facility] Phone Number [facility] [address] [place] [address] * ACETAMINOPHEN (05/01/2013 15:15 EST) Acetaminophen <10.0 ug/ml [facility] Comment: Therapeutic range: ??10 - 30 ug/mL Possible toxicity: ??150 - 200 ug/mL Probable toxicity: ??>200 ug/mL Blood specimen (specimen) 05/01/2013 15:15 EST 05/01/2013 15:36 EST Haim Mendoza MD CHEMISTRY & BLOOD G ORDERABLES Performing Organization Address [facility] Co de Phone Number [facility] [address] [place] [address] * ELECTROLYTES (05/01/2013 15:15 EST) Sodium 141 136 - 145 mEq/L Potassium 3.7 3.5 - 5.0 mEq/L Chloride 102 96 - 110 mEq/L CO2 30 24 - 32 mEq/L Blood specimen (specimen) 05/01/2013 15:15 EST 05/01/2013 15:35 EST Haim Mendoza MD CHEMISTRY & BLOOD G ORDERABLES documented in this encounter Visit Diagnoses Diagnosis Insulin overdose- Primary Poisoning by insulins and antidiabetic agents Insulin overdose (Lantus x1500 units) Poisoning by insulins and antidiabetic agents Suicidal ideation Depression Depressive disorder, not elsewhere classified Suicidal ideation Depression Depressive disorder, not elsewhere classified documented in this encounter Administered Medications Inactive Administered Medications - up to 3 most recent administrations Medication Order MAR Action Action Date Dose Rate Site acetaminophen (TYLENOL) tablet 325 mg 325 mg, oral, EVERY 4 HOURS PRN, Starting on Sat05/01/13 at 1950, Until 05/02/13 at 1841, Pain, Routine Given 05/02/2013 11:11 EST 325 mg acetaminophen (TYLENOL) tablet 650 mg 650 mg, oral, EVERY 6 HOURS PRN, Starting on 05/02/13 at 1845, Until 05/06/13 at 1152, Pain, Routine Given 05/06/2013 6:51 EST 650 mg Given 05/05/2013 21:26 EST 650 mg Given 05/05/2013 13:18 EST 650 mg acetaminophen (TYLENOL) tablet 650 mg 650 mg, oral, NOW X1, 1 dose, On Sat05/01/13 at 1700, STAT Given 05/01/2013 16:58 EST 650 mg cyclobenzaprine (FLEXERIL) tablet 10 mg 10 mg, oral, 3 TIMES DAILY PRN, Starting on 05/02/13 at 1042, Until 05/03/13 at 1232, Muscle Spasms, Routine Given 05/03/2013 9:25 EST 10 mg Given 05/02/2013 21:55 EST 10 mg Given 05/02/2013 11:05 EST 10 mg cyclobenzaprine (FLEXERIL) tablet 10 mg 10 mg, oral, 3 TIMES DAILY, First dose (after last reorder) on Sat05/03/13 at 1300, Until Discontinued, Routine Given 05/04/2013 9:02 EST 10 mg Given 05/03/2013 18:27 EST 10 mg Given 05/03/2013 14:01 EST 10 mg cyclobenzaprine (FLEXERIL) tablet 10 mg 10 mg, oral, 3 TIMES DAILY PRN, Starting on Sat05/04/13 at 1115, Until Sat05/06/13 at 1152, Muscle Spasms, Routine Given 05/06/2013 9:33 EST 10 mg Given 05/05/2013 21:29 EST 10 mg Given 05/05/2013 16:24 EST 10 mg dexmethylphenidate (FOCALIN XR) multiphase capsule capsule,ER multiphase 50-50 15 mg 15 mg, oral, 2 TIMES DAILY BEFORE BREAKFAST & LUNCH, First dose on Sat05/05/13 at 0700, Until Discontinued, Routine Given 05/06/2013 11:29 EST 15 mg Given 05/06/2013 7:27 EST 15 mg Given 05/05/2013 11:50 EST 15 mg dextrose 10 % (D10W) infusion at 50 mL/hr, intravenous, CONTINUOUS, Starting on 05/02/13 at 1630, Until Sat05/06/13 at 0729, Routine Rate Documented 05/06/2013 7:27 EST 50 mL/hr Rate Documented 05/06/2013 2:40 EST 50 mL/hr Rate Change 05/05/2013 17:39 EST 50 mL/hr dextrose 10 %-1/4 NS with KCl 20 mEq/L infusion 100 mL/hr, intravenous, CONTINUOUS, Starting on Sat05/01/13 at 1745, Until Sat05/01/13 at 2036, STAT Rate Documented 05/01/2013 20:00 EST 100 mL/hr 10 0 mL/hr New Bag 05/01/2013 17:46 EST 100 mL/hr 100 mL/hr dextrose 50 % solution 12.5 g 12.5 g (25 mL), intravenous, PRN, Starting on Sat05/01/13 at 1838, Until Sat05/06/13 at 1152, Low Blood Sugar, Routine Given 05/02/2013 6:10 EST 12.5 g Given 05/01/2013 22:10 EST 12.5 g Given 05/01/2013 22:03 EST 12.5 g dextrose 50 % solution 25 g 25 g, intravenous, NOW X1, 1 dose, On Sat05/01/13 at 1745, STAT Given 05/01/2013 17:20 EST 25 g dextrose 50 % solution 6.25 g 6.25 g (12.5 mL), intravenous, NOW X1, 1 dose, On Sat05/01/13 at 1615, STAT Given 05/01/2013 15:46 EST dextrose 50 % solution 1 dose, Starting on Sat05/01/13 at 1540, Until Sat05/01/13 at 1546 DULoxetine (CYMBALTA) capsule 30 mg 30 mg, oral, DAILY, First dose on Sat05/02/13 at 0900, Until Discontinued, Routine Given 05/04/2013 9:02 EST 30 mg Given 05/03/2013 8:36 EST 30 mg Given 05/02/2013 8:49 EST 30 mg DULoxetine (CYMBALTA) capsule 60 mg 60 mg, oral, 2 TIMES DAILY, First dose (after last modification) on Sat05/05/13 at 0900, Until Discontinued, Routine Given 05/06/2013 9:28 EST 60 mg Given 05/05/2013 21:30 EST 60 mg Given 05/05/2013 8:57 EST 60 mg DULoxetine (CYMBALTA) capsule 90 mg 90 mg, oral, NOW X1, 1 dose, On Sat05/04/13 at 1415, Routine Given 05/04/2013 14:55 EST 90 mg heparin injection 5,000 Units 5,000 Units, subcutaneous, EVERY 8 HOURS, First dose on Sat05/02/13 at 0000, Until Discontinued, Routine Given 05/04/2013 9:03 EST 5,000 Units Given 05/03/2013 23:21 EST 5,000 Units Given 05/03/2013 18:40 EST 5,000 Units lidocaine 5 % (LIDODERM) patch 1 Patch 1 Patch, transdermal, Administer over 12 Hours, DAILY, First dose on Sat05/04/13 at 1515, Until Discontinued, Routine Patch Applied 05/06/2013 9:28 EST 1 Patch Other Patch Applied 05/05/2013 8:56 EST 1 Patch Le ft Upper Outer Quadrant Patch Applied 05/04/2013 16:36 EST 1 Patch O ther methylphenidate (RITALIN;METHYLIN) tablet 20 mg 20 mg, oral, 2 TIMES DAILY, First dose (after last reorder) on Sat05/03/13 at 1400, Until Discontinued, Routine Given 05/04/2013 9:02 EST 20 mg Given 05/03/2013 14:01 EST 20 mg naproxen (NAPROSYN) tablet 500 mg 500 mg, oral, 2 TIMES DAILY WITH BREAKFAST & DINNER, First dose on 05/02/13 at 2330, Until Discontinued, Routine Given 05/06/2013 9:28 EST 500 mg Given 05/05/2013 16:24 EST 500 mg Given 05/05/2013 8:57 EST 500 mg nicotine (NICODERM CQ) 14 mg/24 hr patch 1 Patch 1 Patch, transdermal, DAILY, First dose on Sat05/04/13 at 2130, Until Discontinued, Routine Patch Applied 05/05/2013 8:57 EST 1 Patch Right Upper Outer Quadrant Patch Applied 05/04/2013 22:37 EST 1 Patch R ight Arm nicotine (NICOTROL) 10 mg inhaler 1 Inhaler 1 Inhaler, inhalation, EVERY 2 HOURS PRN, Starting on Sat05/06/13 at 0950, Until Sat05/06/13 at 1152, Smoking Cessation, Routine Given 05/06/2013 11:29 EST 1 Inhaler OXcarbazepine (TRILEPTAL) tablet 300 mg 300 mg, oral, 2 TIMES DAILY, First dose on Sat05/01/13 at 2100, Until Discontinued, Routine Given 05/06/2013 9:28 EST 300 mg Given 05/05/2013 21:30 EST 300 mg Given 05/05/2013 8:57 EST 300 mg potassium chloride 10 mEq, sodium chloride 19.25 mEq in dextrose (D10W) 10 % 500 mL custom infusion at 300 mL/hr, intravenous, CONTINUOUS, Starting on 05/02/13 at 0615, Until 05/02/13 at 0649, Routine Rate Documented 05/02/2013 7:00 EST 300 mL/hr New Bag 05/02/2013 6:40 EST 300 mL/hr potassium chloride 10 mEq, sodium chloride 19.25 mEq in dextrose (D10W) 10 % 500 mL custom infusion at 300 mL/hr, intravenous, CONTINUOUS, Starting on 05/02/13 at 0715, Until 05/02/13 at 1300, Routine Rate Documented 05/02/2013 10:00 EST 300 mL/hr Rate Documented 05/02/2013 9:00 EST 300 mL/hr New Bag 05/02/2013 8:26 EST 300 mL/hr potassium chloride 20 mEq, sodium chloride 38.5 mEq in dextrose (D10W) 10 % 1,000 mL custom infusion at 300 mL/hr, intravenous, CONTINUOUS, Starting on Sat05/01/13 at 2100, Until 05/02/13 at 0545, Routine Rate Documented 05/02/2013 6:00 EST 300 mL/hr Rate Documented 05/02/2013 5:00 EST 300 mL/hr Rate Documented 05/02/2013 4:00 EST 300 mL/hr potassium chloride 20 mEq, sodium chloride 38.5 mEq in dextrose (D10W) 10 % 1,000 mL custom infusion at 150 mL/hr, intravenous, CONTINUOUS, Starting on 05/02/13 at 1000, Until 05/02/13 at 1450, Routine Rate Documented 05/02/2013 15:00 EST 150 mL/hr Rate Documented 05/02/2013 14:00 EST 150 mL/hr Rate Documented 05/02/2013 13:00 EST 150 mL/hr QUEtiapine (SEROQUEL) tablet 150 mg 150 mg, oral, AT BEDTIME, First dose (after last modification) on Sat05/01/13 at 2100, Until Discontinued, Routine Given 05/05/2013 21:31 EST 150 mg Given 05/04/2013 20:51 EST 150 mg Given 05/03/2013 20:48 EST 150 mg simvastatin (ZOCOR) tablet 20 mg 20 mg, oral, EVERY EVENING, First dose on 05/02/13 at 2330, Until Discontinued, Routine Given 05/05/2013 16:24 EST 20 mg Given 05/04/2013 17:50 EST 20 mg Given 05/03/2013 18:25 EST 20 mg traMADol (ULTRAM) tablet 50 mg 50 mg, oral, NOW X1, 1 dose, On 05/03/13 at 1430, Routine Given 05/03/2013 15:28 EST 50 mg traMADol (ULTRAM) tablet 50 mg 50 mg, oral, EVERY 8 HOURS PRN, Starting on 05/03/13 at 1517, Until Sat05/06/13 at 1152, Pain, Routine Given 05/06/2013 2:36 EST 50 mg Given 05/05/2013 16:24 EST 50 mg Given 05/05/2013 5:28 EST 50 mg traMADol (ULTRAM) tablet 50 mg 50 mg, oral, NOW X1, 1 dose, On 05/04/13 at 1515, Routine Given 05/04/2013 15:32 EST 50 mg documented in this encounter Discontinued Medications Medication Sig Discontinue Reason Start Date End Da te cloNIDine (CATAPRES) 0.1 mg tablet Take 1 Tab by mouth 2 times daily. 09/24/2012 05/01/2013 doxycycline (VIBRA-TABS) 100 mg tablet Take 1 Tab by mouth 2 times daily. 09/30/2012 05/01/2013 levonorgestrel (MIRENA) 20 mcg/24 hr IUD 1 Each by Intrauterine route once. 08/26/2008 05/01/2013 pioglitazone (ACTOS) 30 mg tablet Take 1 Tab by mouth daily. 08/12/2012 05/01/2013 ramelteon (ROZEREM) 8 mg tablet Take 1 Tab by mouth daily. 08/12/2012 05/01/2013 dexmethylphenidate (FOCALIN) 10 mg tablet Take 15 mg by mouth 2 times daily. Wrong Product Selected 05/04/2013 DULoxetine (CYMBALTA) 30 mg capsule Take 1 Cap by mouth daily. 09/24/2012 05/06/2013 insulin glargine (LANTUS) 100 unit/mL injection 14 units at bedtime 07/09/2012 05/06/2013 metformin (GLUCOPHAGE) 1,000 mg tablet Take 1 Tab by mouth 2 times daily. 04/30/2012 05/06/2013 documented as of this encounter Historical Medications * This list may reflect changes made after this encounter. Medication Sig Dispensed Refills Start Date End Date dexmethylphenidate (FOCALIN XR) 15 mg multiphase capsule Take 15 mg by mouth 2 times daily. 12/31/2013 dexmethylphenidate (FOCALIN) 10 mg tablet Take 15 mg by mouth 2 times daily. 05/04/2013 QUEtiapine (SEROQUEL) 100 mg tablet Take 150 mg by mouth at bedtime. 05/19/2013 OXcarbazepine (TRILEPTAL) 300 mg tablet Take 300 mg by mouth 2 times daily. 05/19/2013 added in this encounter Active and Recently Administered Medications Times are shown in EST. Scheduled Medication Order 05/04/2013 05/05/2013 05/06/2013 cyclobenzaprine (FLEXERIL) tablet 10 mg (CANCELED) 10 mg, oral, 3 TIMES DAILY, First dose (after last reorder) on Sat05/03/13 at 1300, Until Discontinued, Routine 0902 (Given - Provider: Abbe Lipscomb) dexmethylphenidate (FOCALIN XR) multiphase capsule capsule,ER multiphase 50-50 15 mg (CANCELED) 15 mg, oral, 2 TIMES DAILY BEFORE BREAKFAST & LUNCH, First dose on Sat05/05/13 at 0700, Until Discontinued, Routine 0857 (Given - Provider: Alysa Kemp RN)1150 (Given - Provider: Alysa Kemp RN) 0727 (Given - Provider: Jayson Mcgregor, PRISCILA)1129 (Given - Provider: Chikis Krishnamurthy, PRISCILA) DULoxetine (CYMBALTA) capsule 30 mg (CANCELED) 30 mg, oral, DAILY, First dose on Sat05/02/13 at 0900, Until Discontinued, Routine 0902 (Given - Provider: Abbe Lipscomb) DULoxetine (CYMBALTA) capsule 60 mg (CANCELED) 60 mg, oral, 2 TIMES DAILY, First dose (after last modification) on Sat05/05/13 at 0900, Until Discontinued, Routine 0857 (Given - Provider: Alysa Kemp RN)2130 (Given - Provider: Jayson Mcgregor, PRISCILA) 0928 (Given - Provider: Chikis Krishnamurthy, PRISCILA) DULoxetine (CYMBALTA) capsule 90 mg (COMPLETED) 90 mg, oral, NOW X1, 1 dose, On Sat05/04/13 at 1415, Routine 1455 (Given - Provider: Abbe Lipscomb) heparin injection 5,000 Units (CANCELED) 5,000 Units, subcutaneous, EVERY 8 HOURS, First dose on Sat05/02/13 at 0000, Until Discontinued, Routine 0903 (Given - Provider: Abbe Lipscomb)1528 (Not Given - Provider: Abbe Lipscomb - Reason: Patient/family refused)2333 (Not Given - Provider: Liseth Edmondson RN - Reason: Patient/family refused) 0853 (Not Given - Provider: Alysa Kemp RN - Reason: Patient/family refused)1609 (Not Given - Provider: Alysa Kemp RN - Reason: Order parameters not met) 0000 (Canceled Entry - Provider: Jayson Mcgregor RN - Comment: refused)0945 (Not Given - Provider: Chikis Krishnamurthy RN - Reason: Patient/family refused) lidocaine 5 % (LIDODERM) patch 1 Patch 1 Patch, transdermal, Administer over 12 Hours, DAILY, First dose on Sat05/04/13 at 1515, Until Discontinued, Routine 1636 (Patch Applied - Provider: Abbe Lipscomb - Comment: Applied to mid lower back) 0517 (Patch Removed - Provider: Liseth Edmondson, RN)0856 (Patch Applied - Provider: Alysa Kemp RN)212 (Patch Removed - Provider: Jayson Mcgregor RN - Comment: patch not on) 09 (Patch Applied - Provider: Chikis Krishnamurthy RN - Comment: left back)2127 (Due: Patch Removed - Provider: Chikis Krishnamurthy RN) methylphenidate (RITALIN;METHYLIN) tablet 20 mg (CANCELED) 20 mg, oral, 2 TIMES DAILY, First dose (after last reorder) on Sat05/03/13 at 1400, Until Discontinued, Routine 0902 (Given - Provider: Abbe Lipscomb)1550 (Not Given - Provider: Abbe Lipscomb - Reason: Other - Comment: Dissontinued) naproxen (NAPROSYN) tablet 500 mg (CANCELED) 500 mg, oral, 2 TIMES DAILY WITH BREAKFAST & DINNER, First dose on Sat05/02/13 at 2330, Until Discontinued, Routine 0902 (Given - Provider: Abbe Lipscomb)1750 (Given - Provider: Abbe Lipscomb) 0857 (Given - Provider: Alysa Kemp RN)1624 (Given - Provider: Alysa Kemp RN) 0928 (Given - Provider: Chikis Krishnamurthy RN) nicotine (NICODERM CQ) 14 mg/24 hr patch 1 Patch (CANCELED) 1 Patch, transdermal, DAILY, First dose on Sat05/04/13 at 2130, Until Discontinued, Routine 2237 (Patch Applied - Provider: Liseth Edmondson RN) 0857 (Patch Applied - Provider: Alysa Kemp RN)1006 (Patch Removed - Provider: Alysa Kemp RN)2121 (Patch Removed - Provider: Jayson Mcgregor RN) 1000 (Not Given - Provider: Chikis Krishnamurthy RN - Reason: Patient/family refused - Comment: pt requesting nicotine inhaler) OXcarbazepine (TRILEPTAL) tablet 300 mg (CANCELED) 300 mg, oral, 2 TIMES DAILY, First dose on Sat05/01/13 at 2100, Until Discontinued, Routine 0902 (Given - Provider: Abbe Lipscomb)2121 (Given - Provider: Liseth Edmondson RN) 0857 (Given - Provider: Alysa Kemp RN)2129 (Given - Provider: Jayson Mcgregor RN) 0928 (Given - Provider: Chikis Krishnamurthy, PRISCILA) QUEtiapine (SEROQUEL) tablet 150 mg (CANCELED) 150 mg, oral, AT BEDTIME, First dose (after last modification) on Sat05/01/13 at 2100, Until Discontinued, Routine 205 (Given - Provider: Liseth Edmondson RN) 213 (Given - Provider: Jayson Mcgregor RN) simvastatin (ZOCOR) tablet 20 mg (CANCELED) 20 mg, oral, EVERY EVENING, First dose on 05/02/13 at 2330, Until Discontinued, Routine 1750 (Given - Provider: Abbe Lipscomb) 1624 (Given - Provider: Alysa Kemp RN) traMADol (ULTRAM) tablet 50 mg (COMPLETED) 50 mg, oral, NOW X1, 1 dose, On 05/04/13 at 1515, Routine 1532 (Given - Provider: Abbe Lipscomb) Continuous Medication Order 05/04/2013 05/05/2013 05/06/2013 dextrose 10 % (D10W) infusion (CANCELED) at 50 mL/hr, intravenous, CONTINUOUS, Starting on 05/02/13 at 1630, Until Sat05/06/13 at 0729, Routine 0021 (New Bag - Provider: Lesli Avilez, PRISCILA)0200 (New Bag - Provider: Lesli Avilez RN)0522 (Rate Change - Provider: Lesli Avilez RN)0632 (New Bag - Provider: Lesli Avilez RN)1150 (Rate Change - Provider: Abbe Lipscomb)1532 (Rate Change - Provider: Abbe Lipscomb)1951 (Rate Documented - Provider: Liseth Edmondson, RN)2233 (New Bag - Provider: Liseth Edmondson RN)2339 (Rate Documented - Provider: Liseth Edmondson RN) 0319 (New Bag - Provider: Liseth Edmondson RN)1400 (Rate Change - Provider: Alysa Kemp, RN)1511 (New Bag - Provider: Alysa Kemp, RN)1739 (Rate Change - Provider: Alysa Kemp RN) 0240 (Rate Documented - Provider: Jayson Mcgregor, PRISCILA)0727 (Rate Documented - Provider: Jayson Mcgregor, PRISCILA)0730 (Completed - Provider: Chikis Krishnamurthy RN) PRN Medication Order 05/04/2013 05/05/2013 05/06/2013 acetaminophen (TYLENOL) tablet 650 mg (CANCELED) 650 mg, oral, EVERY 6 HOURS PRN, Starting on 05/02/13 at 1845, Until 05/06/13 at 1152, Pain, Routine 0306 (Given - Provider: Lesli Avilez RN)0901 (Given - Provider: Abbe Lipscomb)1456 (Given - Provider: Abbe Lipscomb)2338 (Given - Provider: Liseth Edmondson RN) 1318 (Given - Provider: Josemanuel Dale RN)2126 (Given - Provider: Jayson Mcgregor, PRISCILA - Comment: lower back, L hip) 0651 (Given - Provider: Jayson Mcgregor, PRISCILA) cyclobenzaprine (FLEXERIL) tablet 10 mg (CANCELED) 10 mg, oral, 3 TIMES DAILY PRN, Starting on 05/04/13 at 1115, Until Sat05/06/13 at 1152, Muscle Spasms, Routine 1456 (Given - Provider: Abbe Lipscomb)2051 (Given - Provider: Liseth Edmondson RN) 0856 (Given - Provider: Alysa Kemp RN)1624 (Given - Provider: Alysa Kemp, RN)2129 (Given - Provider: Jayson Mcgregor, PRISCILA) 0933 (Given - Provider: Chikis Krishnamurthy, PRISCILA) nicotine (NICOTROL) 10 mg inhaler 1 Inhaler (CANCELED) 1 Inhaler, inhalation, EVERY 2 HOURS PRN, Starting on Sat05/06/13 at 0950, Until Sat05/06/13 at 1152, Smoking Cessation, Routine 1129 (Given - Provider: Chikis Krishnamurthy, PRISCILA) nicotine inhaler (delivery device) 1 Each, inhalation, PRN, Starting on Sat05/06/13 at 1004, Until Sat05/06/13 at 1152, Smoking Cessation traMADol (ULTRAM) tablet 50 mg (CANCELED) 50 mg, oral, EVERY 8 HOURS PRN, Starting on Sat05/03/13 at 1517, Until Sat05/06/13 at 1152, Pain, Routine 0902 (Given - Provider: Abbe Lipscomb)1950 (Given - Provider: Liseth Edmondson RN) 0528 (Given - Provider: Liseth Edmondson RN)1624 (Given - Provider: Alysa Kemp RN) 0236 (Given - Provider: Jayson Mcgregor, PRISCILA) documented in this encounter Orders Medications Ordered That Russel ht Not Have Been Administered Count Last Ordered Date First Ordered Date nicotine inhaler (delivery device) 1 2013 DULoxetine (CYMBALTA) capsule 120 mg 3 09/201305/01/2013 DULoxetine (CYMBALTA) capsule 60 mg 1 05/04 methylphenidate (RITALIN;MET HYLIN) tablet 10 mg 1 05/03/2013 cyclobenzaprine (FLEXERIL) tablet 10 mg 1 0 05/02/2013 dextrose 10 %-05/02 NS with VIVIAN l 20 mEq/L infusion 1 05/02/2013 potassium chloride 10 mEq, s odium chloride 19.25 mEq in dextrose (D10W) 10 % 500 mL custom infusion 1 05/02/2013 potassium chloride 10 mEq, s odium chloride 38.5 mEq in dextrose (D10W) 10 % 500 mL custom infusion 1 05/02/2013 potassium chloride 60 mEq, s odium chloride 115.5 mEq in dextrose (D10W) 10 % 3,000 mL custom infusion 1 05/02/2013 acetaminophen (TYLENOL) tablet 1,000 mg 1 0 05/01/2013 albuterol (VENTOLIN HFA) inhaler 2 Puff 1 0 05/01/2013 glucagon (human recombinant) 1 mg/mL injection 1 05/01/2013 glucagon (human recombinant) injection 1 mg 1 05/01/2013 QUEtiapine (SEROQUEL) tablet 150 mg 1 05/01 Lab Orders Without Results Count Last Ordered D ate First Ordered Date POCT GLUCOSE 1 05/01/2013 Nursing Count Last Ordered Date First Orde red Date INSERT PERIPHERAL IV 1 05/01/2013 PT Count Last Ordered Date First Orde red Date PT EVALUATION AND TREAT 1 05/05/2013 Respiratory Care Count Last Ordered Date First Ordered Date RESPIRATORY CARE EVALUATION ONLY 1 05/02/19 14 IV Count Last Ordered Date First Orde red Date IV REQUEST 4 05/05/2013 05/01/2013 Admission Count Last Ordered Date First Orde red Date STATUS: INPATIENT ACUTE ADMISSION 1 014 STATUS: ED REQUEST FOR INPATIENT BED 1 06/2013 STATUS: OUTPATIENT OBSERVATION SERVICES 1 0 05/01/2013 Transfer Count Last Ordered Date First Orde red Date PPS NOTIFICATION OF PATIENT ARRIVAL ON UNIT 2 05/02/2013 05/01/2013 PPS NOTIFICATION OF SENDING PATIENT OFF THE UNIT 1 05/02/2013 TRANSFER PATIENT 1 05/02/2013 TEACHING SERVICE 1 05/01/2013 documented in this encounter Care Teams Maxillofacial Prosthetics Dentist Relationship Specialty Start Date End Date Annette Sidhu, SUPPORT DIRECTOR [address] [place] [phone] PCP - General 03/19/13 07/06/19 documented as of this encounter
--- OUTSIDE RECORDS SUMMARY | 2024-02-14 15:24 | XMS_ITS | Encounter Summary ---
Author Organization [facility] Address [address] [place] [address] Care Team Providers Care Hand Sander Name Role Phone Tamara Neal MD Primary Care Provider + Reason for Referral * Other Type (Routine/Next Available) - Closed Specialty Diagnoses / Procedures Referred By Contac t Referred To Contact Pharmacist Diagnoses Left hip pain Depression Tamara Neal MD [address] [place] [phone] Referral ID Status Reason Start Date Expiration Date V isits Requested Visits Authorized [id number] Closed Other 09/24/2012 1 1 Question Answer Medication to be Prior Authorized: cymbalta Comments The purpose of this consult request is to inform the scheduling staff that a medication needs to be prior-authorized before it is prescribed and/or administered. Needs dual anti-depressant and anti-pain effects (neuropathic pain) Reason for Visit * Reason Comments Medication Management Nasal Congestion sore throat, has bee n using netti-pot Encounter Details Date Type Department Care Team (Late st Contact Info) Description 09/24/2012 12:30 EDT Office Visit [facility] Family Medicine - [address] [address] Tamara Neal MD [address] [place] [phone] Allergic rhinitis (Primary Dx); Left hip pain; Depression Social History Tobacco Use Types Packs/Day Years [...] Sign Reading Time Taken Comments Blood Pressure 112/70 09/24/2012 1240 EDT Pulse 88 09/24/2012 1240 EDT Temperature 36.2 ??C (97.2 ??F) 09/24/2012 1240 EDT Respiratory Rate - - Oxygen Saturation - - Inhaled Oxygen Concentration - - Weight 83 kg (183 lb) 09/24/2012 1240 EDT Height - - Body Mass Index 35.74 07/02/2012 1338 EST documented in this encounter Patient Instructions * Patient Instructions* Tamara Neal MD - 09/24/2012 13:28 EDT Celexa 20 mg (1/2 tab) for 1 week Then off Celexa entirely for 2 days Then start Cymbalta 30 mg documented in this encounter Ordered Prescriptions Prescription Sig Dispensed Refills Start Date End Da te DULoxetine (CYMBALTA) 30 mg capsule Take 1 Cap by mouth daily. 30 Cap 2 09/24/2012 05/06/2013 cloNIDine (CATAPRES) 0.1 mg tablet Take 1 Tab by mouth 2 times daily. 10 Tab 0 09/24/2012 05/01/2013 hydrOXYzine (ATARAX) 25 mg tablet Take 1 Tab by mouth 3 times daily as needed for Itching. 30 Tab 0 09/24/2012 05/19/2013 amoxicillin (AMOXIL) 875 mg tablet Take 1 Tab by mouth 2 times daily for 14 days. 28 Tab 0 09/24/2012 09/30/2012 fluticasone (FLONASE) 50 mcg/actuation nasal sprayIndications:Allergi c rhinitis Instill 1 [place] into both nostrils daily. 1 Bottle 2 09/24/2012 12/31/2013 documented in this encounter Progress Notes * Tamara Neal MD - 09/25/2012 1248 EDT Subjective: Patient ID: Guzman Jean is an 37 y.o. female. Chief Complaint Patient presents with ??? Medication Management ??? Nasal Congestion sore throat, has been using netti-pot HPI Here with her step mother to discuss left hip pain Has been weaning down her Dilaudid to 8 mg TABs 1 1/2 - 2 tabs daily 2 weeks ago had inappropriate urine screen, showing NO hydromorphone and significant levels of morphine (> 5000) Further testing for heroin was NEG She denies addiction issues or use of other than prescribed medications Claims the morphine was prescribed from another provider after work related shoulder injury > 12mos ago([facility]) but from our scanned records of these visits I could not find any morphine Rx written or given to patient She states she ran out of the Dilaudid and that is why her urine was NEG for this medication (although at time of visit she never told me she ran out > 4 days before the urine testing) Step-mother interjects freq to plead for pain medications for Guzman Hinds is still waiting for [facility] placement, s/p intake 2 weeks ago I spoke to her therapist Rebecca Nam earlier today She is very willing to keep seeing Guzman, felt she was motivated and interested in depression and anxiety treatment sHE IS WILLING TO SWITCH FROM Celexa to Cymbalta She also notes > 2 weeks nasal congestion and sinus pain No fevers Cough but no SOB No recent ABX use Patient Active Problem List Diagnoses ??? Routine [...] units at bedtime 1 Vial 0 ??? naproxen (NAPROSYN) 500 mg tablet [...] Take 1 Tab by mouth daily. ??? levonorgestrel (MIRENA) 20 mcg/24 hr IUD [...] No ROS - See HPI Objective: BP 112/70 Pulse 88 Temp(Src) 36.2 ??C (97.2 ??F) (Tympanic) Wt 83.008 kg (183 lb) Physical Exam Constitutional: She appears well-developed and well-nourished. No distress. HENT: Head: Normocephalic and atraumatic. Right Ear: External ear normal. Left Ear: External ear normal. Mouth/Throat: Oropharynx is clear and moist. No oropharyngeal exudate. POSS frontal sinus TTP Eyes: Conjunctivae normal are normal. No scleral icterus. Neck: Neck supple. Pulmonary/Chest: Effort normal and breath sounds normal. No respiratory distress. She has no wheezes. She has no rales. Lymphadenopathy: She has no cervical adenopathy. Neurological: She is alert. Skin: She is not diaphoretic. Psychiatric: She has a normal mood and affect. Her behavior is normal. Assessment: Plan: Guzman was seen today for medication management and nasal congestion. Diagnoses and associated orders for this visit: Allergic rhinitis - fluticasone (FLONASE) 50 mcg/actuation nasal spray; Instill 1 [place] into both nostrils daily. Left hip pain, chronic S/p left labral tear repair last winter Fairly recent empiric and diagnostic hip injection through [facility] Has been weaning down Dilaudid use Recent urine screen was INAPPROPRIATE NO prescribed Hydromorphine in her urine and she did have MORPHINE (not prescribed) in her urine, further testing for heroin was NEGATIVE I have been concerned about her narcotic use and have been wanting her to wean off all narcotics asit likely was not in her best interest to continue this non- therapeutic treatment She is reluctant to stop Denies addiction, although I did offer REF to Narcotic addiction treatment WILL NO LONGER PRESCRIBE CONTROLLED SUBSTANCES NO REPLACED BY [facility] PROVIDER WILL PRESCRIBE NARCOTICS FOR HER CHRONIC HIP PAIN ISSUES Can use Clonidone and Atarax to help with withdrawals Will wean off Celexa and switch to Cymbalta for dual anti-depressant and anti- pain effects - Ambulatory Medication Prior Authorization Depression This is also big issue for Guzman I did speak to Rebecca Nam her previous therapist earlier today She has been through [place] intake, just waiting for space to open up Rebecca is happy to continue to meet with Guzman until this happens and then also after her [facility] treatment Rebecca was made aware of narcotic issue and inappropriate urine screening As above switch from celexa to Cymbalta - Ambulatory Medication Prior Authorization Sinusitis - pain and nasal congestion for at least 2 weeks Will treat as bacterial secondary infection with AMOX 875 mg BID for 14 days Also Flonase and saline sinus irrigation Other Orders - amoxicillin (AMOXIL) 875 mg tablet; Take 1 Tab by mouth 2 times daily for 14 days. - hydrOXYzine (ATARAX) 25 mg tablet; Take 1 Tab by mouth 3 times daily as needed for Itching. - cloNIDine (CATAPRES) 0.1 mg tablet; Take 1 Tab by mouth 2 times daily. - DULoxetine (CYMBALTA) 30 mg capsule; Take 1 Cap by mouth daily. Return if symptoms worsen or fail to improve, for keep 10/06 appt. documented in this encounter Plan of Treatment Scheduled Referrals Name Type Priority Associated Diagnoses Order Schedule AMB MEDICATION PRIOR AUTHORIZATION Outpatient Referral Routine Left hip pain Depression Ordered: 09/24/2012 documented as of this encounter Visit Diagnoses Diagnosis Allergic rhinitis- Primary Allergic rhinitis, cause unspecified Left hip pain Pain in joint, pelvic region and thigh Depression Depressive disorder, not elsewhere classified documented in this encounter Discontinued Medications Medication Sig Discontinue Reason Start Date End Da te fluticasone (FLONASE) 50 mcg/Actuation nasal sprayIndications:Allergic rhinitis 1 [place] by Nasal route daily. Reorder 08/01/2010 09/24/2012 citalopram (CELEXA) 40 mg tablet Take 0.5 Tabs by mouth daily. 06/17/2012 09/24/2012 documented as of this encounter Care Teams Hand Sander Relationship Specialty Start Date End Date Tamara Neal MD [address] [place] [phone] PCP - General 09/13/08 03/18/13 documented as of this encounter
--- OUTSIDE RECORDS SUMMARY | 2024-02-14 15:25 | XMS_ITS | Encounter Summary ---
Author Organization [facility] Address [address] [place] [id number] Care Team Providers Care Laminator Hand Name Role Phone Tamara Neal MD Primary Care Provider + Reason for Referral * Consult (Routine/Next Available) - Closed Specialty Diagnoses / Procedures Referred By Contrachell ashton Referred To Contact Diagnoses Adjustment reaction Tamara Neal MD [address] [place] [phone] Referral ID Status Reason Start Date Expiration Date V isits Requested Visits Authorized [id number] Closed Specialty Services Required 06/17/2012 1 1 Question Answer Concerns Resulting in Behavioral Health Consultation: Depression Comments cHRONIC HIP PAIN, RECENT SEPARATION/DIVORCE sIGNIFICANT STRESS COUNSELING AT [facility] WITH Alfred Cruz Reason for Visit * Reason Comments Hip Pain Left Encounter Details Date Type Department Care Team (Late st Contact Info) Description 06/17/2012 17:00 EST Office Visit [facility] Family Medicine [address] [id number] Tamara eNal MD [address] [place] [phone] Left hip pain (Primary Dx); Adjustment reaction Discharge Disposition: Auto Discharge Social History Tobacco [...] Sign Reading Time Taken Comments Blood Pressure 148/92 06/17/2012 1650 EST Pulse 92 06/17/2012 1650 EST Temperature 37.1 ??C (98.7 ??F) 06/17/2012 1650 EST Respiratory Rate - - Oxygen Saturation - - Inhaled Oxygen Concentration - - Weight 89.4 kg (197 lb) 06/17/2012 1650 EST Height - - Body Mass Index 38.47 06/09/2012 1817 EST documented in this encounter Patient Instructions * Patient Instructions* Tamara Neal MD - 06/17/2012 17:30 EST CALL THE PAIN CLINIC TO RE-SCHEDULE YOUR HIP INJECTION, NEED TO HAVE THIS DONE TO SEE IF ANY MORE THERAPEUTIC RESULTS (HELP WITH YOUR HIP PAIN) documented in this encounter Ordered Prescriptions Prescription Sig Dispensed Refills Start Date End Da te buPROPion (WELLBUTRIN SR) 150 mg SR tablet Take by mouth one tablet daily for first three days, then one tablet twice daily for 7-12 weeks. 60 Tab 2 06/17/2012 08/12/2012 citalopram (CELEXA) 40 mg tablet Take 0.5 Tabs by mouth daily. 90 Each 0 06/17/2012 09/24/2012 HYDROmorphone (DILAUDID) 8 mg tablet Take 0.5-1 Tabs by mouth 3 times daily as needed for Pain. No more than 3 TABS per day 35 Each 0 07/13/2012 07/18/2012 HYDROmorphone (DILAUDID) 8 mg tablet Take 0.5-1 Tabs by mouth 3 times daily as needed for Pain. No more than 3 TABS per day 35 Each 0 06/29/2012 06/17/2012 documented in this encounter Discharge Disposition Disposition Code Departure Means Destination Auto Discharge documented in this encounter Progress Notes * Tamara Neal MD - 06/17/2012 2207 EST Subjective: Patient ID: Guzman Jean is an 36 y.o. female. Chief Complaint Patient presents with ??? Hip Pain Left HPI Here for chronic pain of left hip S/p Labral tear repair Re-scheduled her [facility] clinic appt for earlier this month She was REF'ed by Dr. Moffett for hip injection Now she tells me she will be in [place] on vacation from Sat 06/21 - Sat 06/28 so will need to re-schedule appt for 06/24 She is still using Dilaudid 8 mg TID She did eliminate the 2 mg bedtime dose between last visit and now The paln is to continue weaning down on the narcotics At end of visit she mentions mood issues Emotional lability, mentions others don't want to be around her Feels Celexa no longer working Has been on the 40 mg dose for some time Denies safety concerns or self harm thoughts Fairly recent separation Living with her parents Has 2 kids, teenager and pre-schooler Has new boyfriend, who she will be traveling with Patient Active Problem List Diagnoses ??? Routine [...] to Visit Medication Sig Dispense Refill ??? fluconazole (DIFLUCAN) 150 mg tablet Take 1 Tab by mouth daily for 1 day. 1 Each 1 ??? ciprofloxacin (CIPRO) 500 mg tablet Take 1 Tab by mouth 2 times daily for 10 days. 20 Tab 0 ??? phenazopyridine (PYRIDIUM) 100 mg tablet Turns urine orange 15 Tab 0 ??? naproxen (NAPROSYN) 500 mg tablet Take 1 Tab by mouth 2 times daily with breakfast and dinner. 60 Each 2 ??? metformin (GLUCOPHAGE) 1,000 mg tablet Take 1 Tab by mouth 2 times daily. 180 Each 3 ??? HYDROmorphone (DILAUDID) 2 mg tablet Take 1 Tab by mouth every 12 hours as needed. 28 Tab 0 ??? cyclobenzaprine (FLEXERIL) 10 mg tablet Take 1 Tab by mouth 3 times daily as needed for Muscle Spasms. 90 Each 1 ??? albuterol (PROVENTIL HFA, VENTOLIN HFA) 90 mcg/actuation inhaler Inhale 2 Puffs as directed every 4 hours as needed for Wheezing. 1 Inhaler 2 ??? trazodone (DESYREL) 100 mg tablet Take 1.5 Tabs by mouth at bedtime. 90 Tab 3 ??? ramelteon (ROZEREM) 8 mg tablet Take 1 Tab by mouth daily. 30 Each 5 ??? simvastatin (ZOCOR) 20 mg tablet Take 1 Tab by mouth every evening. 90 Tab 3 ??? APPLE CIDER VINEGAR ORAL Take 1 Tab by mouth daily. ??? insulin glargine (LANTUS) 100 unit/mL injection 10 units at bedtime 1 Vial 3 ??? pioglitazone (ACTOS) 30 mg tablet Take 1 Tab by mouth daily. 30 Tab 3 ??? fluticasone (FLONASE) 50 mcg/Actuation nasal spray 1 [place] by Nasal route daily. 1 Bottle 2 [...] No ROS - See HPI Objective: BP 148/92 Pulse 92 Temp(Src) 37.1 ??C (98.7 ??F) (Tympanic) Wt 89.359 kg (197 lb) LMP 05/18/2012 Physical Exam Constitutional: She appears well-developed and well-nourished. No distress. HENT: Head: Normocephalic and atraumatic. Eyes: Conjunctivae are normal. No scleral icterus. Neurological: She is alert. Psychiatric: Her behavior is normal. Tearful, sad towards end of visit Initially when I entered room she was on her cell phone smiling and appeared happy Assessment: Plan: Guzman was seen today for hip pain. Diagnoses and associated orders for this visit: Left hip pain, chronic S/p labral tear repair Has re-scheduled [facility] hip injection for earlier this month and now mentions needs to re-schedule again Trip to [place] next week (Sat - Sat 06/22-06/28) We are in process of weaning her chronic dilaudid Will decrease her current Rx (just filled on 06/11 #42 tabs) to Dilaudid 4-8 mg TID (expect 4 mg bidand 8 mg once daily if possible, but might end up using 2.5 tabs daily) Needs to make this current Rx last through her vacation, cannot have prescription filled while in [place] I was not willing to give additional 2-4 mg TABS to fill at local pharmacy before her departure I explained we need to wean down as it is and that will not remain on chronic Dilaudid or narcotics, this is NOT best way to manage her pain I am concerned for the re-scheduled procedure, this has been pattern for her 2 Rx given for #35 TABs Dilaudid 8 mg dated for 06/29 and 07/13 I expect each of those Rx to last 14 days or longer Will continue to taper/wean at each visit Next visit will also obtain UD6 and Hydromorphone opiate conf urine testing Adjustment reaction Will wean celexa to 20 mg and start Wellbutrin SR 150 mg daily for 3-5 days and then increase to 150 mg BID (last dose not later than 5 pm) Counseling will also be important, has had in past. Would like new therapist Will REF to Alfred Cruz here at [facility] to start with No immediate suicidal or self harm concerns Recent separation/divorce, chronic pain issues - Ambulatory Consult Behavioral Health Other Orders - Discontinue: HYDROmorphone (DILAUDID) 8 mg tablet; Take 0.5-1 Tabs by mouth 3 times daily as needed for Pain. No more than 3 TABS per day - HYDROmorphone (DILAUDID) 8 mg tablet; Take 0.5-1 Tabs by mouth 3 times daily as needed for Pain. No more than 3 TABS per day - citalopram (CELEXA) 40 mg tablet; Take 0.5 Tabs by mouth daily. - buPROPion (WELLBUTRIN SR) 150 mg SR tablet; Take by mouth one tablet daily for first three days, then one tablet twice daily for 7-12 weeks. Return in about 4 weeks (around 2012), or if symptoms worsen or fail to improve, for rov. documented in this encounter Plan of Treatment Scheduled Referrals Name Type Priority Associated Diagnoses Order Schedule AMB CONSULT BEHAVIORAL HEALTH Outpatient Referral Routine Adjustment reaction Ordered: 06/17/2012 documented as of this encounter Visit Diagnoses Diagnosis Left hip pain- Primary Pain in joint, pelvic region and thigh Adjustment reaction Unspecified adjustment reaction documented in this encounter Discontinued Medications Medication Sig Discontinue Reason Start Date End Da te HYDROmorphone (DILAUDID) 8 mg tablet Take 1 Tab by mouth 3 times daily as needed for Pain. No more than 3 TABS per day Reorder 06/11/2012 06/17/2012 HYDROmorphone (DILAUDID) 8 mg tablet Take 0.5-1 Tabs by mouth 3 times daily as needed for Pain. No more than 3 TABS per day Reorder 06/29/2012 06/17/2012 citalopram (CELEXA) 40 mg tablet Take 1 Tab by mouth daily. Reorder 04/30/2012 06/17/2012 HYDROmorphone (DILAUDID) 2 mg tablet Take 1 Tab by mouth every 12 hours as needed. 04/30/2012 06/17/2012 documented as of this encounter Care Teams Laminator Hand Relationship Specialty Start Date End Date Tamara Neal MD [address] [place] [phone] PCP - General 09/13/08 03/18/13 documented as of this encounter
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
--- OUTSIDE RECORDS SUMMARY | 2024-02-14 15:25 | XMS_ITS | Encounter Summary ---
Author Organization [facility] Address [address] [place] [address] Care Team Providers Care Technical Laboratory Asst Name Role Phone Tamara Neal MD Primary Care Provider + Reason for Referral * Consult, Test and Treat (Routine/Next Available) - Closed Specialty Diagnoses / Procedures [facility] Referred To Contact Rehab Therapies Diagnoses Hip pain Alberto Moffett MD [address] [place] [phone] [facility] Rehab Therapy [address] [place] [address] Referral ID Status Reason Start Date Expiration Date V isits Requested Visits Authorized [id number] Closed Specialty Services Required 02/08/2012 1 1 Question Answer Reason for Request: S/P Left hip arthroscopic labral repair Surgery (and Date): 02/08/12 Comments Prescription for Physical Therapy - Hip / Groin PT / ATC : Yes. DOS: 02/08/12 Diagnosis / Surgery: S/P Left hip arthroscopic labral repair See Attached Protocol: Hip arthroscopic labral repair protocol ?? Do not force painful motion ?? Please instruct daily home program Duration of PT: 2-3 visits per week for 8-16 weeks. Other: Reason for Visit * Reason Onset Date Comments Hip Pain 02/08/2012 Encounter Details Date Type Department Care Team (Late st Contact Info) Description 02/08/2012 Orders Only [facility] Sports Medicine Program - [address] [place] [address] Alberto Moffett MD [address] [place] [phone] Hip pain (Primary Dx) Social History Tobacco Use [...] Type Priority Associated Diagnoses Orde r Schedule AMB CONSULT PHYSICAL THERAPY Outpatient Referral Routine Hip pain Ordered: 02/08/2012 documented as of this encounter Visit Diagnoses Diagnosis Hip pain- Primary Pain in joint, pelvic region and thigh documented in this encounter Care Teams Technical Laboratory Asst Relationship Specialty Start Date End Date Tamara Neal MD [address] [place] [phone] PCP - General 09/13/08 03/18/13 documented as of this encounter
--- OUTSIDE RECORDS SUMMARY | 2024-02-14 15:25 | XMS_ITS | Encounter Summary ---
Author Organization [facility] Address [address] [place] [address] Care Team Providers Care Flour Blender Helper Name Role Phone Tamara Neal MD Primary Care Provider + Reason for Visit * Reason Comments Hip Pain Encounter Details Date Type Department Care Team (Late st Contact Info) Description 03/28/2012 Documentation Visit [facility] Rehabilitation Therapy - [address] [phone] Carl Velasquez, PT [address] [facility] [address] [facility] [place] [address] Social History Tobacco Use Types Packs/Day [...] as of this encounter Progress Notes * Carl Velasquez, PT - 03/28/2012 1155 EST [facility] [address] [place] [address] Physical Therapy Discontinue Note Date: 03/28/2012 Reason for Referral: Diagnosis: left hip pain, difficulty walking ICD 9: 719.45, 719.7 Date of Onset: 02/08/12 Referring Provider: Dr. Alberto Moffett Date of Initial Eval: 02/12/12 Date of Last Progress Note: 02/12/12 Total Number of Visits: 1 SUBJECTIVE: None OBJECTIVE: Ms. Jean was seen in physical therapy for an initial evaluation only on 02-12-12. The plan at that time was for her to continue with physical therapy here at [facility] [place] [facility]. She has not since returned for any further appointments. Chart review indicates she has continued physical therapy at [facility]. ASSESSMENT: Unable to assess her current status, as she was not seen for any additional therapy sessions. I am opting to discontinue Ms. Jean therapy at this time, as she has not returned for scheduled appointments. GOALS: All physical therapy goals are discontinued. PLAN: Discontinue physical therapy. Ms. Jean is invited to contact me any time, should any problems arise, or should her plans for rehabilitation change. Thank you for this referral. It was a pleasure working with Ms. Jean. CARL VELASQUEZ PT, DPT 03/28/2012 11:55 ; [email or web address] documented in this encounter Plan of Treatment Not on file documented as of this encounter Visit Diagnoses Not on filedocumented in this encounter Care Teams Flour Blender Helper Relationship Specialty Start Date End Date Tamara Neal MD [address] [place] [phone] PCP - General 09/13/08 03/18/13 documented as of this encounter
--- OUTSIDE RECORDS SUMMARY | 2024-02-14 15:25 | XMS_ITS | Encounter Summary ---
Author Organization [facility] Address [address] [place] [address] Care Team Providers Care Field Crop Harvest Contractor Name Role Phone Tamara Neal MD Primary Care Provider + Reason for Visit * Reason Onset Date Comments Vaginitis 06/16/2012 Encounter Details Date Type Department Care Team (Late st Contact Info) Description 06/16/2012 Telephone [facility] Family Medicine - [address] [address] Tamara Neal MD [address] [place] [phone] Vaginitis Social History Tobacco Use Types Packs/Day Years [...] Dispensed Refills Start Date End Da te fluconazole (DIFLUCAN) 150 mg tablet Take 1 Tab by mouth daily for 1 day. 1 Each 1 06/16/2012 06/17/2012 documented in this encounter Miscellaneous Notes * Telephone Encounter - Tamara Neal MD - 06/16/2012 5186 EST Done * Telephone Encounter - Awilda Fang RN - 06/16/2012 1010 EST Pt was put on cipro 06/09/12 for 10 days for UTI. She states she has now developed vaginal itching and vaginal discharge (white discharge). No worsening abdominal/back pain from her baseline. No fever. She states she has gotten yeast infections in the past when on antibiotics. Diflucan has worked well. Requesting prescription for diflucan. * Telephone Encounter - Mikki Peñaloza - 06/16/2012 0999 EST Pt has been on antibiotic and would like diflucan sent to [facility] on [address] documented in this encounter Plan of Treatment Not on file documented as of this encounter Visit Diagnoses Not on filedocumented in this encounter Care Teams Field Crop Harvest Contractor Relationship Specialty Start Date End Date Tamara Neal MD [address] [place] [phone] PCP - General 09/13/08 03/18/13 documented as of this encounter
--- OUTSIDE RECORDS SUMMARY | 2024-02-14 15:25 | XMS_ITS | Encounter Summary ---
Author Organization [facility] Address [address] [place] [address] Care Team Providers Care Hspt Tutor Name Role Phone Tamara Neal MD Primary Care Provider + Reason for Visit * Reason Onset Date Comments Medication Questions 07/09/2012 Encounter Details Date Type Department Care Team (Late st Contact Info) Description 07/09/2012 Telephone [facility] Family Medicine - [address] [phone] Tamara Neal MD [address] [place] [address] [phone] Medication Questions Social History Tobacco Use Types Packs/Day [...] Refills Start Date End Da te insulin glargine (LANTUS) 100 unit/mL injection 14 units at bedtime 1 Vial 0 07/09/2012 05/06/2013 documented in this encounter Miscellaneous Notes * Telephone Encounter - Victoriano Lewsi - 07/09/2012 0172 EDT Pt called wanting to let Dr Neal know that she stopped taking the Wellbutrin that she was given because it was causing her to have headaches every day and also to let her know that she had a cortisone injection in her hip last week and is having a lot of pain as result. Rates pain at a 7 on a scale of 0-10. Pt has appointment with Dr. Neal on the and states that she will discuss these issues with her at that time. * Telephone Encounter - Mikki Peñaloza - 07/09/2012 1612 EDT Pt asking to speak with a nurse about her medications, did not want to leave details with me. documented in this encounter Plan of Treatment Not on file documented as of this encounter Visit Diagnoses Not on filedocumented in this encounter Discontinued Medications Medication Sig Discontinue Reason Start Date End Da te insulin glargine (LANTUS) 100 unit/mL injection 10 units at bedtime Reorder 06/12/2011 07/09/2012 documented as of this encounter Care Teams Hspt Tutor Relationship Specialty Start Date End Date Tamara Neal MD [address] [place] [phone] PCP - General 09/13/08 03/18/13 documented as of this encounter
--- OUTSIDE RECORDS SUMMARY | 2024-02-14 15:25 | XMS_ITS | Encounter Summary ---
Author Organization [facility] Address [address] [place] [address] Care Team Providers Care Machinist Mate Name Role Phone Tamara Neal MD Primary Care Provider + Reason for Visit * Reason Onset Date Comments Appointment Related 02/26/2012 Encounter Details Date Type Department Care Team (Late st Contact Info) Description 02/26/2012 Telephone [facility] Rehabilitation Therapy - [address] [phone] Naima Rodney, PT Appointment Related Social History Tobacco Use Types [...] encounter Miscellaneous Notes * Telephone Encounter - Marisol Thibodeaux - 02/26/2012 0947 EDT Guzman cancelled for today 02/26/12 and rescheduled for 03/06/12. documented in this encounter Plan of Treatment Not on file documented as of this encounter Visit Diagnoses Not on filedocumented in this encounter Care Teams Machinist Mate Relationship Specialty Start Date End Date Tamara Neal MD [address] [place] [phone] PCP - General 09/13/08 03/18/13 documented as of this encounter
--- OUTSIDE RECORDS SUMMARY | 2024-02-14 15:25 | XMS_ITS | Encounter Summary ---
Author Organization [facility] Address [address] [place] [address] Care Team Providers Care Pediatric Cardiologist Name Role Phone Tamara Neal MD Primary Care Provider + Reason for Visit * Reason Onset Date Comments Other 02/07/2012 Encounter Details Date Type Department Care Team (Late st Contact Info) Description 02/07/2012 Telephone [facility] Family Medicine - [address] [phone] Tamara Neal MD [address] [place] [address] [phone] Other Social History Tobacco Use Types Packs/Day [...] Telephone Encounter - Santa Guerrero RN - 02/07/[address] aj will provide narcotics for immediate post-operative time period i spoke to him and discussed dwaine 02/06 @ 4:56 Guzman is aware of Dr[address] Neal's response from 02/06 @ 15:48. The patient indicates understanding of these issues and agrees with the plan. States I just finished antibiotics and have a yeast infection. I get Diflucan for this? * Telephone Encounter - Santa Guerrero RN - 02/07/2012 1548 EDT 02/06 @ 3:48 attempted to call Guzman, her phone was busy x2 * Telephone Encounter - Almita Ponce - 02/07/2012 0957 EDT Patient calling states she was calling to see if Dr. Neal had contacted her surgeon to see who would be prescribing her medicatios. documented in this encounter Plan of Treatment Not on file documented as of this encounter Visit Diagnoses Not on filedocumented in this encounter Care Teams Pediatric Cardiologist Relationship Specialty Start Date End Date Tamara Neal MD [address] [place] [phone] PCP - General 09/13/08 03/18/13 documented as of this encounter
--- OUTSIDE RECORDS SUMMARY | 2024-02-14 15:25 | XMS_ITS | Encounter Summary ---
Author Organization [facility] Address [address] [place] [address] Care Team Providers Care Chinese Medicine Practitioner Name Role Phone Tamara Neal MD Primary Care Provider + Reason for Visit * Reason Comments Hip Pain left hip pain Encounter Details Date Type Department Care Team (Latest Contact Info) Description 07/02/2012 13:30 EST Office Visit [facility] Interventional Pain [address] [place] [address] Unknown, Provider, Selvin Lo MD Left hip pain (Primary Dx) Social History Tobacco Use [...] Sign Reading Time Taken Comments Blood Pressure 150/87 07/02/2012 1421 EST Pulse 102 07/02/2012 1421 EST Temperature 36.9 ??C (98.5 ??F) 07/02/2012 1338 EST Respiratory Rate 18 07/02/2012 1338 EST Oxygen Saturation - - Inhaled Oxygen Concentration - - Weight 89.4 kg (197 lb) 07/02/2012 1338 EST Height 152.4 cm (5') 07/02/2012 1338 EST Body Mass Index 38.47 07/02/2012 1338 EST documented in this encounter Patient Instructions * Patient Instructions* Deborah Alvarez RN - 07/02/2012 14:10 EST [facility] [address] [address] Patient Instructions You have had your left hip intraarticular injection. The purpose of this procedure has been to place medication which may help relieve your pain. Steroid may be used to decrease the swelling and nerve irritation which may be causing your pain. The following information should help you over the next few days regarding what you may expect. Today please stay busy/active doing things that would normally cause you pain. Keep track of your hours of relief and your percentage of relief today (0 to 100 , 0 = no relief and 100% = total relief). Separate the pressure and tightness that we caused you from your regular pain and see what your relief is. Call us back tomorrow with this information. Procedure end time: 2:18 Pain relief start time Returned to baseline pain Hours of relief Percentage of relief 0-100 (0 = no relief, 100 = total relief) DO NOT drive a car for the remainder of the day. If you feel sore where the needle(s) entered for the block or develop a flare-up of pain over the next few days, please use ice on the area. You may leave the ice on for up to 20 minutes at a time. Do not use heat, as this may cause swelling. As long as your primary doctor has indicated no restrictions, you may take a mild pain medicine, such as acetaminophen (Tylenol), ibuprofen (Advil, Nuprin, Motrin IB, etc.) or aspirin, if needed. The steroid injection usually takes a few days to become effective. On average, you may notice somerelief in 3 -5 days. However, it may take up to 10 - 14 days to know whether the injection was helpful. If the block causes numbness/weakness, it should wear off within a few hours. If the area that the needle(s) were inserted becomes hot, red, swollen, or increasingly tender, or if you develop a fever (100.5 or greater) or chills along with these symptoms, please call our office immediately. If you develop increasingly severe neck/back pain, continued numbness or weakness of the arms/legs or changes in your bladder or bowel functions, please call our office at once. Instructions for follow-up If you have any questions about your block, please call Patient Education Topic: Method: Handout and Verbal Taught to: Patient Barriers: None Outcomes: independent and verbalized understanding Signature:DEBORAH ALVAREZ RN documented in this encounter Progress Notes * Sevlin Lo MD - 07/02/2012 1345 EST Patient Name: Guzman Jean : 1975 Date of Service: 07/02/2012 Safety Instructor: Devonte Boston DO Calculating Machine Mechanic: Selvin Lo MD Procedure: Left hip intraarticular injection Interval History: Ms. Jean presents at the request of Alberto Moffett for evaluation and treatment of her chronic hip pain. The details of the current pain are thoroughly described in the surgical consultation notes, including pain onset, location, course, workup, therapeutic attempts, and associated functional limitations. The pain is primarily localized to the left groin and radiates from the left buttock to the posterior aspect of her left thigh (midthigh). This pain has been present for2 year(s) and is described as a constant pressure with some associated numbness in the left groin. She underwent a left hip labral repair arthroscopically on 02/08/2012 which provided about 3 weeks of relief. However, since then, her pain has returned to baseline (pre-operatively). The average painintensity is 4-9/10 and is aggravated by sitting and walking up the stairs. Analgesics and ice alleviate the pain. This pain has not responded to conservative measures, including PT, previous hip injections, chiropracty and acupuncture. She is referred here by Dr. Moffett for diagnostic and possibly therapeutic left hip intraarticular joint injection. Allergies: No Known Allergies ROS: Negative for any fever, chills, nausea/vomiting, headaches, chest pain, palpitations, shortness of breath, bladder/bowel incontinence, easy bruising, bleeding, anti-coagulation or known recent infections. Physical Exam: Vital signs: BP 144/88 Pulse 110 Temp(Src) 36.9 ??C (98.5 ??F) (Tympanic) Resp 18 Ht 152.4 cm (60) Wt 89.359 kg (197 lb) BMI 38.47 kg/m2 LMP 05/18/2012 Patient is alert, oriented x 3 and conversant. Able to stand and ambulate without difficulty. Gait is antalgic. She favors the left side. Unlabored breathing. Examination of the lower extremities reveal normal strength. No gross sensory deficits. Skin: Clean, dry, intact, no rash, no signs of infection. Scars from previous surgery. Assessment: This is a 36 yo female with chronic left hip pain of unclear etiology. She has had a labral repair on 02/08/2012 with no fci relief. She is here for diagnostic/therapeutic hip injection requested by Dr. Moffett. 1. Left hip pain Plan: Proceed with intraarticular left hip injection. Follow up: as needed for further evaluation and within 24 hrs by telephone to report results of diagnostic injection Procedure: The patient signed a consent form after we fully discussed the risks and benefits of the procedure and all questions were asked and answered. A cobian moment was performed with everyone present to verify patient identification, procedure being performed and allergies. The patient was then placed inthe supine position on the fluoroscopy table and the hip was prepped with chlorhexadine and draped in sterile fashion. Flouroscopy was used to identify the appropriate anatomy of the hip joint. The skin and subcutaneous tissue were anesthetized with 2% lidocaine over the entry point for the spinal needle. A 22 guage 3.5 inch spinal needle was inserted and guided with fluoroscopic guidance into the aforementioned joint. Anterior-posterior and lateral views were taken to verify appropriate needletip placement. Then 2 ml???s of contrast was injected to reveal an intraarticular spread with fluoroscopic guidance. There was negative aspiration of heme and no intravascular spread visualized with f luoroscopy. After negative aspiration, the joint was injected with 4 ml of 0.5% Bupivacaine and 40 mg Depo-Medrol. The needle was then flushed and removed. There were no paresthesias during needle placement and aspiration was negative at all times. The patient tolerated the procedure well and there were no apparent complications. Written and verbal discharge instructions were reviewed with the patient prior to discharge. Attending attestation: I saw and examined the patient with the resident/fellow. I agree with the findings and plan of care documented in the resident's/fellow's note. In addition, I was present and participated during the entire procedure. Devonte Boston DO * Julianne Nazario - 07/02/2012 1339 EST [facility] Rooming Note Does patient have a Shut Off Worker? yes Is patient NPO? (Solids since midnight & liquids for 4 hrs) na Blood Thinners: Is patient on Blood Thinners? no If yes, taking? If stopped, who authorized stopping? Related comments: Infections: Any recent infections, fever of illnesses? no If on antibiotics, is it 7-10 days past the date of completion of antibiotics? no : (for females of child-bearing age) Is there a chance current ? no Other: documented in this encounter Miscellaneous Notes * Scanned Note-Null - SUPERVISOR ELECTRONICS PROCESSING, SCAN 2 - 07/03/2012 1441 EST documented in this encounter Plan of Treatment Not on file documented as of this encounter Visit Diagnoses Diagnosis Left hip pain- Primary Pain in joint, pelvic region and thigh documented in this encounter Care Teams Chinese Medicine Practitioner Relationship Specialty Start Date End Date Tamara Neal MD [address] [place] [phone] PCP - General 09/13/08 03/18/13 documented as of this encounter
--- OUTSIDE RECORDS SUMMARY | 2024-02-14 15:25 | XMS_ITS | Encounter Summary ---
Author Organization [facility] Address [address] [place] [address] Care Team Providers Care Incubator Machine Operator Name Role Phone Tamara Neal MD Primary Care Provider + Reason for Visit * Reason Comments Hip Pain left hip pain Encounter Details Date Type Department Care Team (Late st Contact Info) Description 05/20/2012 9:30 EST Office Visit [facility] Sports Medicine Program - [address] [address] Alberto Moffett MD [address] [place] [phone] Left hip pain (Primary Dx) Discharge Disposition: [...] file documented as of this encounter Discharge Disposition Disposition Code Departure Means Destination Auto Discharge documented in this encounter Progress Notes * Alberto Moffett MD - 05/21/2012 0755 EST Sports Medicine Service [facility] [address] [place] [address] PROGRESS/FOLLOWUP NOTE - 05/20/2012 PROBLEM: 1. Left hip pain. a. Left arthroscopic labral repair 02/08/12. SUBJECTIVE: Guzman comes in for scheduled followup. She is still having problems with her left hip. She describes groin pain, buttock pain and a sense of weakness. She has mechanical symptoms. She is still doing physical therapy. OBJECTIVE: She was not formally examined. ASSESSMENT AND PLAN: It is difficult to [...] with me by phone after the injection. Electronically Signed by Alberto Moffett MD 05/27/2012 15:43 Alberto Moffett MD - Alberto Moffett MD - JG Job ID: SM Doc ID: [id number] Ext Doc ID: [id number] cc: Tamara Neal MD * Alberto Moffett MD - 05/20/2012 1018 EST This office note has been dictated. documented in this encounter Plan of Treatment Not on file documented as of this encounter Visit Diagnoses Diagnosis Left hip pain- Primary Pain in joint, pelvic region and thigh documented in this encounter Care Teams Incubator Machine Operator Relationship Specialty Start Date End Date Tamara Neal MD [address] [place] [phone] PCP - General 09/13/08 03/18/13 documented as of this encounter
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
--- OUTSIDE RECORDS SUMMARY | 2024-02-14 15:25 | XMS_ITS | Encounter Summary ---
Author Organization [facility] Address [address] [place] [address] Care Team Providers Care Education Finance Processor Name Role Phone Tamara Neal MD Primary Care Provider + Reason for Visit * Reason Onset Date Comments Prior Auth, Medication 02/25/2012 Encounter Details Date Type Department Care Team (Late st Contact Info) Description 02/25/2012 Telephone [facility] [address] [address] Tamara Neal MD [address] [place] [phone] Prior Auth, Medication Social History Tobacco Use [...] Miscellaneous Notes * Telephone Encounter - Wanda Jordan - 03/04/2012 1450 EST Approved for 1 year * Telephone Encounter - Tamara Neal MD - 03/04/2012 1205 EST I met with patient today She tried Ambien 3 years ago and did not have therapeutic effects Failed Zolpidem Please push rozerem Rx through * Telephone Encounter - Santa Guerrero, PRISCILA - 02/26/2012 0856 EDT Nini the pharmacist at [facility] states I can't approve the Rozerem because the provider wantingto avoid more controlled substances is not a contraindication. If there is a patient or family HX of substance abuse then we could reconsider. * Telephone Encounter - Tamara Neal MD - 02/26/2012 0627 EDT Rozerem working Want to avoid Rx like Zolpidem. On other controlled substances and need to avoid more * Telephone Encounter - Stacy Hawkins - 02/25/2012 1550 EDT Prior auth for Rozerm 8 mg denied. Patient must first have a trial of Zolpidem 1 per day which doesnot require a prior auth. Please advise. ID # [id number] documented in this encounter Plan of Treatment Not on file documented as of this encounter Visit Diagnoses Not on filedocumented in this encounter Care Teams Education Finance Processor Relationship Specialty Start Date End Date Tamara Neal MD [address] [place] [phone] PCP - General 09/13/08 03/18/13 documented as of this encounter
--- OUTSIDE RECORDS SUMMARY | 2024-02-14 15:25 | XMS_ITS | Encounter Summary ---
Author Organization [facility] Address [address] [place] [address] Care Team Providers Care Senior Teradata Developer Name Role Phone Tamara Neal MD Primary Care Provider + Reason for Visit * Reason Onset Date Comments Results 07/03/2012 Encounter Details Date Type Department Care Team (Late st Contact Info) Description 07/03/2012 Telephone [facility] Interventional Pain [address] [place], [place] [phone] Selvin Lo MD Results Social History Tobacco Use Types Packs/Day [...] encounter Miscellaneous Notes * Telephone Encounter - Maeve Toribio RN - 07/04/2012 0631 EST Date and type of procedure:07/02/12 intraarticular left hip injection. Provider:Ye Hours of relief:12 hrs % of relief:80-90% Next appointment: no appt, referred by Betina * Telephone Encounter - Sabino Lazo - 07/03/2012 1534 EST 80-90% 12+ HOURS DR LAMBERT TO GET REPORT ALSO documented in this encounter Plan of Treatment Not on file documented as of this encounter Visit Diagnoses Not on filedocumented in this encounter Care Teams Senior Teradata Developer Relationship Specialty Start Date End Date Tamara Neal MD [address] [place] [phone] PCP - General 09/13/08 03/18/13 documented as of this encounter
--- OUTSIDE RECORDS SUMMARY | 2024-02-14 15:25 | XMS_ITS | Encounter Summary ---
Author Organization [facility] Address [address] [place] [address] Care Team Providers Care Responder Name Role Phone Tamara Neal MD Primary Care Provider + Encounter Details Date Type Department Care Team (Late st Contact Info) Description 07/31/2012 Orders Only [address] [phone] Shanon Malik, RN Screening examination for pulmonary tuberculosis (Primary Dx) Social History Tobacco Use Types [...] on file documented as of this encounter Results * TB BY QUANTIFERON, B (08/01/2012 9:57 EDT) [facility] TB by QuantiFERON, B Negative [facility] TB Antigen Value 0.01 IU/mL MELLISA GONZALES [...] account when interpreting QuantiFERON-TB results. Performed by: [facility] Labs: [facility], [address] [place], [place] [address], Lab Dir: Roberto Kathleen III, MD 08/01/2012 9:57 EDT 08/01/2012 10:56 EDT Winston Yusuf MD CHEMISTRY & BLO OD GAS ORDERABLES Performing Organization Address City/State/[facility] Co de Phone Number [facility] [address] [place] [address] documented in this encounter Visit Diagnoses Diagnosis Screening examination for pulmonary tuberculosis- Primary documented in this encounter Care Teams Responder Relationship Specialty Start Date End Date Tamara Neal MD [address] [place] [phone] PCP - General 09/13/08 03/18/13 documented as of this encounter
--- OUTSIDE RECORDS SUMMARY | 2024-02-14 15:25 | XMS_ITS | Encounter Summary ---
Author Organization [facility] Address [address] [place] [address] Care Team Providers Care Roll Press Operator Name Role Phone Tamara Neal MD Primary Care Provider + Encounter Details Date Type Department Care Team (Late st Contact Info) Description 02/07/2012 Results Only Imaging [facility] Sports Medicine Program - [address] [address] Alberto Moffett MD [address] [place] [phone] Social History Tobacco Use Types [...] Procedure Name Priority Date/Time Associated Diagnosis Comments HIP UNILATERAL 1 VIEW 02/08/2012 14:00 EDT documented in this encounter Results * HIP UNILATERAL 1 VIEW (02/08/2012 14:00 EDT) Anatomical Region Laterality Modality Other 02/08/2012 14:0 0 EDT 02/08/2012 15:21 EDT Narrative 02/08/2012 15:21 EDT Left HIP UNILATERAL 1 VIEW ??Feb 08, 2012 02:00:00 PM Signs and Symptoms/Comments: ??Left hip arthroscopy, left hip pain. Comparison: 08/20/2011 Findings: Four intraoperative fluoroscopic spot views of the left hip are provided. The left hip joint has been insufflated. Images show multiple surgical devices within the hip joint. An IUD is present. No unexpected radiopaque foreign body is present. I have personally reviewed the images and the above interpretation and agree with the findings. Procedure Note Rodney Mendez MD - 02/08/2012 Left HIP UNILATERAL 1 VIEW Feb 08, 2012 02:00:00 PM Signs and Symptoms/Comments: Left hip arthroscopy, left hip pain. Comparison: 08/20/2011 Findings: Four intraoperative fluoroscopic spot views of the left hip are provided. The left hip joint has been insufflated. Images show multiple surgical devices within the hip joint. An IUD is present. No unexpected radiopaque foreign body is present. I have personally reviewed the images and the above interpretation and agree with the findings. Alberto Moffett MD IMG DIAGNOSTIC IMAGING ORDERABLES documented in this encounter Visit Diagnoses Not on filedocumented in this encounter Care Teams Roll Press Operator Relationship Specialty Start Date End Date Tamara Neal MD [address] [place] [phone] PCP - General 09/13/08 03/18/13 documented as of this encounter
--- OUTSIDE RECORDS SUMMARY | 2024-02-14 15:25 | XMS_ITS | Encounter Summary ---
Author Organization [facility] Address [address] [place] [address] Care Team Providers Care Sed Special Education Teacher Name Role Phone Tamara Neal MD Primary Care Provider + Reason for Visit * Reason Comments Post-OP Follow Up Encounter Details Date Type Department Care Team (Late st Contact Info) Description 02/12/2012 11:30 EDT Office Visit [facility] Sports Medicine Program - [address] [phone] Alberto Moffett MD [address] [place] [phone] Acetabular labrum tear (Primary Dx) Social History Tobacco Use Types [...] Progress Notes * Alberto Moffett MD - 02/13/2012 0723 EDT Sports Medicine Service [facility] [address] [place] [phone] PROGRESS/FOLLOWUP NOTE - 02/12/2012 PROCEDURE: Left arthroscopic acetabular labral repair. Date of surgery 02/08/12. SUBJECTIVE: Ryan was seen in postoperative clinic. No major problems since surgery. She does have numbness on her anterior thigh. OBJECTIVE: She was not formally examined. ASSESSMENT: Satisfactory postoperative course. PLAN: Begin physical therapy as instructed. Followup in 6 to 8 weeks. Electronically Signed by Alberto Moffett MD 02/20/2012 10:53 Alberto Moffett MD - Alberto Moffett MD - [facility] Job ID: SM Doc ID: [id number] Ext Doc ID: [id number] cc: Tamara Neal MD * Hussain Castro MD - 02/12/2012 1056 EDT This office note has been dictated. documented in this encounter Plan of Treatment Not on file documented as of this encounter Visit Diagnoses Diagnosis Acetabular labrum tear- Primary Sprain and strain of other specified sites of hip and thigh documented in this encounter Care Teams Sed Special Education Teacher Relationship Specialty Start Date End Date Tamara Neal MD [address] [place] [phone] PCP - General 09/13/08 03/18/13 documented as of this encounter
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
--- OUTSIDE RECORDS SUMMARY | 2024-02-14 15:25 | XMS_ITS | Encounter Summary ---
Author Organization [facility] Address [address] [place] [address] Care Team Providers Care Public Utilities Sales Representative Name Role Phone Tamara Neal MD Primary Care Provider + Encounter Details Date Type Department Care Team (Latest Contact Info) Description 02/12/2012 10:44 EDT - 02/12/2012 23:59 EDT Hospital Encounter [address] [place] [address] Alberto Moffett MD [address] [place] [phone] Discharge Disposition: Home or Self Care Social [...] 12/31/2013 citalopram (CELEXA) 40 mg tablet Take 1 Tab by mouth daily. 90 Tab 3 12/25/2011 04/30/2012 cyclobenzaprine (FLEXERIL) 10 mg tabletIndications:Chr onic pain syndrome Take 1 Tab by mouth 2 times daily as needed for Muscle Spasms. 60 Tab 2 01/25/2012 03/18/2012 docusate sodium (COLACE) 100 mg capsule Take 1 Cap by mouth 2 times daily for 14 days. 28 Cap 1 02/08/2012 02/22/2012 fluticasone (FLONASE) 50 mcg/Actuation nasal sprayIndications:Pelon rgic rhinitis 1 Ava by Nasal route daily. 1 Bottle 2 08/01/2010 09/24/2012 HYDROmorphone (DILAUDID) 8 mg tablet Take 1 Tab by mouth 4 times daily as needed for Pain. No more than 3.5 - 4 TABS per day 30 Each 0 02/26/2012 03/04/2012 ibuprofen (MOTRIN) 200 mg tablet Take 3 Tabs by mouth every 6 hours as needed. 12/31/2013 insulin glargine (LANTUS) 100 unit/mL injection 10 units at bedtime 1 Vial 3 06/12/2011 07/09/2012 levonorgestrel (MIRENA) 20 mcg/24 hr IUD 1 Each by Intrauterine route once. 08/26/2008 05/01/2013 metformin (GLUCOPHAGE) 1,000 mg tablet Take 1 Tab by mouth 2 times daily. 60 Tab 11 11/26/2011 04/30/2012 pioglitazone (ACTOS) 30 mg tablet Take 1 Tab by mouth daily. 30 Tab 3 12/12/2010 08/12/2012 promethazine (PHENERGAN) 12.5 mg tablet Take 1 Tab by mouth every 6 hours as needed for Nausea. 5 Tab 1 02/08/2012 03/18/2012 ramelteon (ROZEREM) 8 mg tablet Take 1 [...] filedocumented in this encounter Care Teams Public Utilities Sales Representative Relationship Specialty Start Date End Date Tamara Neal MD [address] [place] [phone] PCP - General 09/13/08 03/18/13 documented as of this encounter
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
--- OUTSIDE RECORDS SUMMARY | 2024-02-14 15:25 | XMS_ITS | Encounter Summary ---
Author Organization [facility] [employer] [facility] Address [address] [place] [address] Care Team Providers Care Biomedical Equipment Tech Name Role Phone Tamara Neal MD Primary Care Provider + Reason for Visit * Reason Comments Urinary Tract Infection Pt arrives via t riage stating that she was called back in by an ED priovider to have urine checked again for UTI. Pt states Bactrim is not working. NAD Encounter Details Date Type Department Care Team (Late st Contact Info) Description 06/09/2012 18:13 EST - 06/09/2012 18:46 EST Emergency [facility] Emergency Department - Main [place] [address] [place] [address] Martin Gaston, PA-C [id number] [phone] Emergency, MD Kamila Dysuria (Primary Dx) Discharge Disposition: Home or Self [...] Sign Reading Time Taken Comments Blood Pressure 140/82 06/09/2012 1817 EST Pulse 98 06/09/2012 1817 EST Temperature 36.3 ??C (97.3 ??F) 06/09/2012 1817 EST Respiratory Rate 16 06/09/2012 1817 EST Oxygen Saturation 98% 06/09/2012 1817 EST Inhaled Oxygen Concentration - - Weight 89.4 kg (197 lb) 06/09/2012 1817 EST Height 152.4 cm (5') 06/09/2012 1817 EST Body Mass Index 38.47 06/09/2012 1817 EST documented in this encounter Discharge Instructions * Discharge Instructions* Martin Gaston - 06/09/2012 18:39 EST Discontinue use of Bactrim, take Cipro as directed. Use Pyridium as needed for your dysuria symptoms. * Attachments The following attachments cannot be sent through Care Everywhere. * URINARY TRACT INFECTION IN WOMEN: AFTER YOUR VISIT (NIGERIEN) documented in this encounter Medications at Time [...] Take 1 Tab by mouth daily. 12/31/2013 ciprofloxacin (CIPRO) 500 mg tablet Take 1 Tab by mouth 2 times daily for 10 days. 20 Tab 0 06/09/2012 06/19/2012 citalopram (CELEXA) 40 mg tablet Take 1 Tab by mouth daily. 90 Each 3 04/30/2012 06/17/2012 cyclobenzaprine (FLEXERIL) 10 mg tablet Take 1 Tab by mouth 3 times daily as needed for Muscle Spasms. 90 Each 1 03/18/2012 08/12/2012 fluticasone (FLONASE) 50 mcg/Actuation nasal sprayIndications:Pelon rgic rhinitis 1 [place] by Nasal route daily. 1 Bottle 2 08/01/2010 09/24/2012 HYDROmorphone (DILAUDID) 2 mg tablet Take 1 Tab by mouth every 12 hours as needed. 28 Tab 0 04/30/2012 06/17/2012 HYDROmorphone (DILAUDID) 8 mg tablet Take 1 Tab by mouth 3 times daily as needed for Pain. No more than 3 TABS per day 42 Each 0 06/11/2012 06/17/2012 ibuprofen (MOTRIN) 200 mg tablet Take 3 [...] and dinner. 60 Each 2 04/30/2012 12/31/2013 phenazopyridine (PYRIDIUM) 100 mg tablet Turns urine orange 15 Tab 0 06/09/2012 2012 pioglitazone (ACTOS) 30 mg tablet Take 1 Tab by mouth daily. 30 Tab 3 12/12/2010 08/12/2012 ramelteon (ROZEREM) 8 mg tablet Take 1 Tab by mouth daily. 30 Each 5 10/17/2011 08/12/2012 simvastatin (ZOCOR) 20 mg tablet Take 1 Tab by mouth every evening. 90 Tab 3 09/04/2011 08/12/2012 sulfamethoxazole-trim ethoprim (BACTRIM DS) 800-160 mg per tablet Take 1 Tab by mouth every 12 hours for 7 days. 14 Each 0 06/05/2012 06/12/2012 trazodone (DESYREL) 100 mg tabletIndications:Chr onic pain syndrome Take 1.5 Tabs by mouth at bedtime. 90 Tab 3 12/25/2011 08/12/2012 documented as of this encounter Ordered Prescriptions Prescription Sig Dispensed Refills Start Date End Da te phenazopyridine (PYRIDIUM) 100 mg tablet Turns urine orange 15 Tab 0 06/09/2012 2012 ciprofloxacin (CIPRO) 500 mg tablet Take 1 Tab by mouth 2 times daily for 10 days. 20 Tab 0 06/09/2012 06/19/2012 documented in this encounter Discharge Disposition Disposition Code Departure Means Destination Home or Self Care Car Home documented in this encounter ED Notes * Martin Gaston - 06/09/2012 1840 EST DOS: 06/09/2012 Chief Complaint Patient presents with ??? Urinary Tract Infection Pt arrives via triage stating that she was called back in by an ED priovider to have urine checked again for UTI. Pt states Bactrim is not working. NAD The patient is a 36 y.o. female who presents today with Urinary Tract Infection HPI Comments: 36-year-old female presents to the emergency department for reevaluation of urinary tract infection. Patient was recently seen in this emergency department for symptoms of dysuria. Patient gave a urine sample and was treated prophylactically for UTI with Bactrim. Patient states that she is taking the Bactrim as directed however has continued discomfort. Patient was contacted by thisemergency department after results of bacterial culture came back. Patient was encouraged to returnto emergency department for reevaluation of continued symptoms. The history is provided by the patient. Urinary Tract Infection This is a recurrent problem. The current episode started more than 1 week ago. The problem occurs every urination. The problem has not changed since onset.The quality of the pain is described as burning. The pain is at a severity of 4/10. The pain is mild. There has been no fever. Associated symptoms include frequency and urgency. Pertinent negatives include no chills, no nausea and no vomiting. Review of Systems Constitutional: Negative. Negative for chills. HENT: Negative. Respiratory: Negative. Cardiovascular: Negative. Gastrointestinal: Negative for nausea and vomiting. Genitourinary: Positive for dysuria, urgency and frequency. Musculoskeletal: Negative. Skin: Negative. Neurological: Negative. Psychiatric/Behavioral: Negative. Past Medical History Diagnosis Date ??? Type [...] ??? Diabetes Paternal Grandfather Vital Signs Temp: 36.3 ??C (97.3 ??F) Temp src: Tympanic Pulse: 98 Resp: 16 SpO2: 98 % SpCO: 4 % BP: 140/82 mmHg BP Device: BP Machine O2 Device: None (Room air) Physical Exam Nursing note and vitals reviewed. Constitutional: She is oriented to person, place, and time. She appears well- developed and well-nourished. HENT: Head: Normocephalic and atraumatic. Neck: Normal range of motion. Pulmonary/Chest: Effort normal. Abdominal: There is CVA tenderness (mild right and left). Musculoskeletal: Normal range of motion. Neurological: She is alert and oriented to person, place, and time. Skin: Skin is warm and dry. Psychiatric: She has a normal mood and affect. Her behavior is normal. Radiology orders: None Procedures ED Course: A medical screening exam was performed. Well-developed, well-nourished female. HEENT examination, atraumatic, normocephalic. Pulmonary exam, effort normal. Abdominal exam, mild right and left CVA tenderness. Musculoskeletal examination otherwise unremarkable. Reviewed prior bacterial culture, patient states that she is diabetic and continues to have symptomology in spite of use of Bactrim. Patient will be treated for dysuria, prescription for Cipro and Pyridium provided. Disposition: Discharged The patient's pain was managed to an adequate level weighing risk vs. benefit of further medications. Upon departure from the Emergency Department, the patient's pain was 4 on a zero to ten scale. Condition at departure from the Emergency Department: Stable Discharge Prescriptions New Prescriptions CIPROFLOXACIN (CIPRO) 500 MG TABLET Take 1 Tab by mouth 2 times daily for 10 days. PHENAZOPYRIDINE (PYRIDIUM) 100 MG TABLET Turns urine orange MDM Number of Diagnoses or Management Options Dysuria: minor Diagnosis management comments: 3 Amount and/or Complexity of Data Reviewed Clinical lab tests: reviewed Review and summarize past medical records: yes Risk of Complications, Morbidity, and/or Mortality Presenting problems: low Diagnostic procedures: low Management options: minimal Patient Progress Patient progress: stable Final diagnoses: Dysuria PCP: Tamara Neal MD 06/09/2012 19:27 documented in this encounter Miscellaneous Notes * Scanned Note-Null - PROFESSOR OF GEOLOGY, SCAN 2 - 06/13/2012 1021 EST documented in this encounter Plan of Treatment Not on file documented as of this encounter Visit Diagnoses Diagnosis Dysuria- Primary documented in this encounter Administered Medications Inactive Administered Medications - up to 3 most recent administrations Medication Order MAR Action Action Date Dose Rate Site Ciprofloxacin 500 mg Tab STARTER PACK 1 Package, oral, NOW X1, 1 dose, On Sat06/09/12 at 1900, STAT Given 06/09/2012 18:45 EST 1 Package documented in this encounter Active and Recently Administered Medications Times are shown in EST. Scheduled Medication Order 06/07/2012 06/08/2012 06/09/2012 Ciprofloxacin 500 mg Tab STARTER PACK (COMPLETED) 1 Package, oral, NOW X1, 1 dose, On Sat06/09/12 at 1900, STAT 1845 (Given - Provid er: Kurt Bethea RN) documented in this encounter Orders Medications Ordered That Russel ht Not Have Been Administered Count Last Ordered Date First Ordered Date Ciprofloxacin 500 mg Tab STARTER PACK 1 02/2013 documented in this encounter Care Teams Biomedical Equipment Tech Relationship Specialty Start Date End Date Tamara Neal MD [address] [place] [phone] PCP - General 09/13/08 03/18/13 documented as of this encounter
--- OUTSIDE RECORDS SUMMARY | 2024-02-14 15:25 | XMS_ITS | Encounter Summary ---
Author Organization [facility] Address [address] [place] [address] Care Team Providers Care De Icer Installer Name Role Phone Tamara Neal MD Primary Care Provider + Reason for Visit * Reason Onset Date Comments Other 06/25/2012 Encounter Details Date Type Department Care Team (Late st Contact Info) Description 06/25/2012 Telephone [facility] Family Medicine - [address] [phone] Tamara Neal MD [address] [place] [phone] Other Social History Tobacco Use Types Packs/Day [...] * Telephone Encounter - Victoriano Lewis - 06/25/2012 1644 EST Attempted to call patient at number provided and mailbox is full and can not receive messages. * Telephone Encounter - Victoriano Lewis - 06/25/2012 1625 EST Call placed to Crisis Center ([facility]) and [facility] * Telephone Encounter - Victoriano Lewis - 06/25/2012 1455 EST Pt's mother called stating that she is concerned about her daughter. I told mother that I could notdiscuss patient with her however would listen to anything she had to say. Mom states that Guzman is extremely anxious, can't sleep and crying all the time. Recently started Wellbutrin and mom thinks it is making her worse. Mom would like us to call patient. Reports that it is ok to tell her that shetold us to call. Called placed to patient and informed that her that her mother asked that we call her and that nothing was discussed about her. Pt reported to me that she is having horrible ongoing anxiety and it is out of control. Pt states that she can't sleep and she is having major mood swings. Pt crying on the phone. I asked patient about suicidal and homicidal thoughts and she reports thatnatalia doesn't feel like killing her self YET. I advised patient that I felt she needed to be seen immediately and asked if she would be willing to speak with the Crisis Center. Pt agreed and given the number. Pt was going to call as soon as she hung up the phone. Dr Neal made aware of this telephone encounter. * Telephone Encounter - Kay Alcocer - 06/25/2012 1405 EST Prem is calling today asking to speak to Dr. Neal's nurse about her daughter. When asked what it is regarding she states I need to have a confidential conversation with the nurse. Please call her back. documented in this encounter Plan of Treatment Not on file documented as of this encounter Visit Diagnoses Not on filedocumented in this encounter Care Teams De Icer Installer Relationship Specialty Start Date End Date Tamara Neal MD [address] [place] [phone] PCP - General 09/13/08 03/18/13 documented as of this encounter
--- OUTSIDE RECORDS SUMMARY | 2024-02-14 15:25 | XMS_ITS | Encounter Summary ---
Author Organization [facility] Address [address] [place] [address] Care Team Providers Care Wire Twisting Machine Operator Name Role Phone Tamara Neal MD Primary Care Provider + Encounter Details Date Type Department Care Team (Late st Contact Info) Description 05/08/2012 Phlebotomy Only [address] [address] [facility], Outpatient Social History Tobacco Use Types Packs/Day [...] on filedocumented in this encounter Care Teams Wire Twisting Machine Operator Relationship Specialty Start Date End Date Tamara Neal MD [address] [place] [phone] PCP - General 09/13/08 03/18/13 documented as of this encounter
--- OUTSIDE RECORDS SUMMARY | 2024-02-14 15:25 | XMS_ITS | Encounter Summary ---
Author Organization [facility] Address [address] [place] [address] Care Team Providers Care Bridge Manager Name Role Phone Tamara Neal MD Primary Care Provider + Encounter Details Date Type Department Care Team (Latest Contact Info) Description 02/08/2012 10:29 EDT - 02/08/2012 16:28 EDT Hospital Encounter [facility] Perioperative Services - [address] [phone] Michael Moffett MD [address] [place] [phone] Pain in joint, pelvic region and thigh Discharge Disposition: Home or Self Care Social [...] Sign Reading Time Taken Comments Blood Pressure 125/69 02/08/2012 1555 EDT Pulse - - Temperature 36.8 ??C (98.2 ??F) 02/08/2012 1545 EDT Respiratory Rate 17 02/08/2012 1555 EDT Oxygen Saturation 94% 02/08/2012 1555 EDT Inhaled Oxygen Concentration - - Weight 89.8 kg (198 lb) 02/05/2012 1449 EDT Height 152.4 cm (5') 02/05/2012 1449 EDT Body Mass Index 38.67 02/05/2012 1449 EDT documented in this encounter Discharge Instructions * Discharge Instructions* Hussain Castro MD - 02/08/2012 14:17 EDT Michael Moffett MD [facility] [address] [place] [address] WHAT TO EXPECT AFTER ARTHROSCOPIC HIP SURGERY Pain Control ??? It is normal to have swelling and discomfort in the hip for up to 6 weeks after surgery, depending on the nature ofthe procedure. ??? Plan ahead to take at least a few days offfrom work or school. Make sure there is someone around who can help you with basic tasks after surgery. ??? Apply ice bags to control swelling. Ice should be applied 30 minutes at a time, every hour or two. Put a thin towel or T-shirt next to your skin if using ice in a plastic bag. Icing is most important in the first 72 hours, although many people fmd that continuing it lessens their postoperative pain weeks after their surgery. ??? You will also be given a prescription for narcotic pain medication when you are discharged fromthe hospital. Ifyou find you do not tolerate it well, call our office, preferably during business hours, so that we can Detter assist you. Do not drive a car or operate machinery while taking narcotics. ??? Some narcotics such as Percocet and Vicodin have Tylenol in them. Others such as Oxycodone and Dilaudid do not. If the medication you were prescribed does not contain Tylenol, you may supplement the narcotic pain medication with Tylenol at the recommended dose. Try to wean off the narcotic painmedication as soon as possible. Anti-inflammatories such as Ibuprofen, Aleve, Motrin, Naprosyn may be taken as well, depending on the type ofsurgery performed. You doctor will discuss this with you before you are discharged. ??? It is normal to have some soreness in your ankle and knee on the operative side because of traction applied during surgery. It is also normal to have some numbness in your groin area to due compression of this area against the traction post during surgery. This almost always resolves with time. Deep Venous Thrombosis (Blood Clot) Prevention ??? We recommend that you take a baby aspirin (81 mg) daily for the 1st week following your surgery. ??? PUMP YOUR ANKLES UP AND DOWN. This should be done several times an hour to keep the blood circulating in your leg and to help prevent blood clots from forming. ??? If possible, avoid long car rides or plane trips for at least 2 weeks after surgery. Wound Care ??? Keep the post-op dressing clean and dry. Unless it becomes wet or too tight because of swelling, leave the bandages in place for at least two days. It is normal for some blood to soak through thebandages. If this occurs, you may reinforce the dressing with another clean one. ??? REMOVE YOUR BANDAGES 48 HOURS AFTER SURGERY UNLESS INSTRUCTED OTHERWISE BY YOUR DOCTOR. Cover the small incisions with Band-Aids to keep sutures from snagging. You may shower then as long as the incisions are completely dry with no drainage, but do not scrub the area. If there is active drainage when you remove the dressing, blot it dry and cover with a new dry dressing until the drainage stops. ??? Do not wet your incisions directly (bathing or swimming) until you have discussed this with your doctor at your first post-operative visit. ??? Should you have superficial sutures, they will be removed within 10 days of your surgery. Our office or your physical therapist can assist you with this. In some cases, we use absorbable sutures which do not need to be removed. Follow-up and Physical Therapy ??? We would like to see you back in the office approximately 1 week after surgery. If you don't have your first post-op visit scheduled, please call our office to make one. ??? You may be instructed to start physical therapy right away. If so, you will be given specific instructions upon discharge. Most patients will start therapy after their first post-operative visit.Please make arrangements before surgery for your post-operative therapy so there is no delay when you start. ??? Use crutches and bear weight according to the instructions from your doctor. ??? Ifyou experience continuous incisional drainage, redness, swelling, shortness ofbreath or fever, please call our office or go to the nearest emergency department. Driving ??? In general, you may resume driving when you have full control ofyour limbs, are pain free and off all narcotic pain medications. documented in this encounter Medications at Time [...] 50 mcg/Actuation nasal sprayIndications:Pelon rgic rhinitis 1 Girdler by Nasal route daily. 1 Bottle 2 08/01/2010 09/24/2012 HYDROmorphone (DILAUDID) 2 mg tablet Take 1-3 Tabs by mouth every 4 hours as needed for Pain. 45 Tab 0 02/08/2012 02/12/2012 HYDROmorphone (DILAUDID) 8 mg tablet Take 1 Tab by mouth 4 times daily as needed for Pain. No more than 3.5 - 4 TABS per day 56 Each 0 01/25/2012 02/12/2012 ibuprofen (MOTRIN) 200 mg tablet Take 3 [...] Dispensed Refills Start Date End Da te docusate sodium (COLACE) 100 mg capsule Take 1 Cap by mouth 2 times daily for 14 days. 28 Cap 1 02/08/2012 02/22/2012 promethazine (PHENERGAN) 12.5 mg tablet Take 1 Tab by mouth every 6 hours as needed for Nausea. 5 Tab 1 02/08/2012 03/18/2012 HYDROmorphone (DILAUDID) 2 mg tablet Take 1-3 Tabs by mouth every 4 hours as needed for Pain. 45 Tab 0 02/08/2012 02/12/2012 documented in this encounter Discharge Disposition Disposition Code Departure Means Destination Home or Self Care documented in this encounter Progress Notes * Shanon Pacheco RN - 02/08/2012 1607 EDT 1600 - Pt states pain 7/10 to left hip - Tolerable desires to get OOB>BR; Desires to go home; Has tolerated po, dc instructs, meds rev'd w pt & ; vd qs in BR 1615 - pt ready for dc to home - awaiting anes dc * Shazia Foy RN - 02/05/2012 1458 EDT Guzman Jean has been instructed as follows regarding medication administration for the day of the scheduled procedure. Date of Surgery: 02-08-12 Instructions for Taking Medications Day of Surgery Medication Last Dose Hold DOS Take DOS cyclobenzaprine (FLEXERIL) 10 mg tablet yes HYDROmorphone (DILAUDID) 8 mg tablet yes albuterol (PROVENTIL HFA, VENTOLIN HFA) 90 mcg/actuation inhaler Please bring in Yes citalopram (CELEXA) 40 mg tablet Yes trazodone (DESYREL) 100 mg tablet Night before Yes metformin (GLUCOPHAGE) 1,000 mg tablet yes ramelteon (ROZEREM) 8 mg tablet Night before simvastatin (ZOCOR) 20 mg tablet Yes APPLE CIDER VINEGAR ORAL yes insulin glargine (LANTUS) 100 unit/mL injection Minus 5units =5units Yes pioglitazone (ACTOS) 30 mg tablet Yes fluticasone (FLONASE) 50 mcg/Actuation nasal spray Yes levonorgestrel (MIRENA) 20 mcg/24 hr IUD Yes ibuprofen (MOTRIN) 200 mg tablet 02-05-12 acetaminophen (TYLENOL) 500 mg tablet yes - documented in this encounter H&P Notes * Michael Moffett MD - 02/08/2012 1140 EDT The preoperative history and physical which was performed within 30 days of this procedure has been reviewed and the clinically appropriate elements of the physical examination have been repeated. There are no changes to the documented history and physical or if so such changes are documented below MICHAEL MOFFETT MD 02/08/2012 11:40 Source Note - Tamraa Neal MD - 02/05/2012 15:52 EDT Subjective: Patient ID: Guzman Jean is an 36 y.o. female. Chief Complaint Patient presents with ??? Pain Guzman is here for a follow-up regarding her left hip pain and medication management HPI Here for f/u hip pain Has re-scheduled hip arthoscopy scheduled for this FRI 02/[address] Moffett Had initial medical evaluation on 01/06, had bronchitis with wheeze at that time She was treated with Azithromycin and seen again 2 days later on 01/08 This has since fully resolved No further cough, fevers, wheeze, SOB or chest pain DM has been doing well with Lantus, ACTOS and Metformin Last HgA1C at end October down to 6.8 Regarding hip pain, we weaned narcotics down to Dilaudid 8 mg 4 times daily She has enough to get her to FRI surgery Patient Active Problem List Diagnoses ??? Routine general medical examination at health care facility ??? Type 2 diabetes mellitus without (mention of) complications ??? Polycystic ovaries ??? Contraceptive management ??? Insertion of (intrauterine) contraceptive device ??? Left buttock pain ??? Left hip pain ??? LBP (low back pain) ??? Left thigh pain ??? Hyperlipidemia ??? Brachial plexus lesions ??? Shoulder pain Past Medical History Diagnosis Date ??? [...] to Visit Medication Sig Dispense Refill ??? cyclobenzaprine (FLEXERIL) 10 mg tablet Take 1 Tab by mouth 2 times daily as needed for Muscle Spasms. 60 Tab 2 ??? HYDROmorphone (DILAUDID) 8 mg tablet Take 1 Tab by mouth 4 times daily as needed for Pain. No more than 3.5 - 4 TABS per day 56 Each 0 ??? albuterol (PROVENTIL HFA, VENTOLIN HFA) 90 [...] fluticasone (FLONASE) 50 mcg/Actuation nasal spray 1 Girdler by Nasal route daily. 1 Bottle 2 [...] No ROS - See HPI Objective: BP 132/82 Pulse 72 Temp(Src) 36.2 ??C (97.2 ??F) (Oral) Wt 90.719 kg (200 lb) Physical Exam Constitutional: She appears well-developed and well-nourished. No distress. HENT: Head: Normocephalic and atraumatic. Eyes: Conjunctivae are normal. No scleral icterus. Cardiovascular: Normal rate, regular rhythm and normal heart sounds. Pulmonary/Chest: Effort normal and breath sounds normal. No respiratory distress. She has no wheezes. She has no rales. Assessment: Plan: Guzman was seen today for pain. Diagnoses and associated orders for this visit: Chronic pain syndrome Left hip pain Scheduled Hip arthroscopy with Dr. Moffett 02/07 (this was re-scheduled from 01/10) Had bronchitis with wheeze at time of pre-op medical eval 01/06, treated with Azithromycin From resp stand point is completely resolved and lungs clear on exam. No other changes to previous medical eval for pr-operative eval and can proceed with scheduled procedure under spinal or general anetshesia Will be due for chronic narcotics on SAT day of surgery but actual pain needs hard to determine at this point Also not sure if she will receive post-op narcotics from [facility] directly or if I will be the only prescriber I will discuss with Dr. Moffett directly Will get FLU vaccine at next visit (she has developed low grade fevers after FLU vaccine in past) Other Orders - Cancel: cyclobenzaprine (FLEXERIL) 10 mg tablet; Take 1 Tab by mouth 2 times daily as needed for Muscle Spasms. Return in about 4 weeks (around 03/04/2012), or if symptoms worsen or fail to improve, for rov. I did discuss post-op pain meds with Dr. Moffett, who will prescribe necessary narcotics in the immediate post-op time frame After that I will assume this prescribing, pending need for further narcotics documented in this encounter Procedure Notes * HALF SECTION IRONER, SCAN 2 - 02/13/20121940 EDTAssociated Order(s): IMPLANT RECORD - SCANNED * HALF SECTION IRONER, SCAN 2 - 02/13/20121940 EDTAssociated Order(s): ECG REPORT - SCANNED documented in this encounter OR Notes * OR PreOp - HALF SECTION IRONER, SCAN 2 - 02/13/20121940 EDT * OR Surgeon - Michael Moffett MD - 02/09/2012 0801 EDT OPERATIVE REPORT SERVICE DATE: 02/08/2012 SURGEON: Michael Moffett MD COFFEE MACHINE TECHNICIAN: Hussain Castro MD PREOPERATIVE DIAGNOSIS: Left hip pain and possible acetabular labral tear. POSTOPERATIVE DIAGNOSIS: Left acetabular labral tear. PROCEDURE: Left arthroscopic acetabular labral repair. ANESTHESIA: General plus local. ESTIMATED BLOOD LOSS: Minimal. FLUIDS: 1000 mL of crystalloid. URINE OUTPUT: Not recorded. IMPLANTS: One single-loaded 2.3 mm BIORAPTOR anchor. SPECIMENS: None. DRAINS: None. COMPLICATIONS: None. TRACTION TIME: 61 minutes. DISPOSITION: PACU. INDICATIONS: A 36-year-old woman with chronic left hip pain. See PRISM notes for full details of her history, physical examination and imaging studies. It was felt that she potentially had a symptomatic acetabular labral tear. Nonsurgical and surgical management options were discussed and she elected to pursue surgery. Risks were explained including infection, bleeding, nerve injury, skin numbness, blood clots, medical complications, need for additional surgery, stiffness, failure of the labrumto heal, incomplete pain relief and incomplete return of function. NARRATIVE: Informed consent was obtained from the patient. Her left thigh was marked in the preoperative hold area. She was brought to the operating room and placed supine on the operating room table. General anesthetic was administered by the anesthesiology staff. She received 2 g of Kefzol within1 hour of making the skin incision. She was chemically paralyzed and placed supine on the [employer] traction table on a well-padded peroneal post. Foam boots were applied to her feet, which were securely fixed to the traction apparatus with her hips in 30 degrees of abduction and the left hip in neutral rotation and slight flexion. Countertraction was applied to the right lower extremity, followed by traction on the left lower extremity until a vacuum sign was confirmed on the image intensifier. The hip was maximally adducted, creating distraction of at least 1 cm. Traction was released. The left thigh was prepped and draped in the usual sterile fashion. A time-out was undertaken confirming the left hip as the correct operative site. The traction was reapplied until satisfactory distraction was again confirmed on the image intensifier. Under image guidance, a standard anterior peritrochanteric portal was created. Under direct visualization, a modified anterior portal was created. Small capsulotomies were made around each portal. The joint was examined systematically. Findings are as follows: 1. No loose bodies in the central compartment. 2. The ligamentum teres was normal. 3. The labrum in zones 5, 4, 3 and 1 was normal. 4. There was an unstable labral tear in zone 2 with mild adjacent articular cartilage wear, but theremainder of the articular cartilage on the acetabulum was normal. 5. The articular cartilage on the femoral head was normal. I elected to proceed with an arthroscopic labral repair. The adjacent acetabular rim was debrided of soft tissue and a motorized shaver was used to debride the bone to create a bleeding surface for healing. A 2.3 mm single-loaded BIORAPTOR anchor was deployed just adjacent to the labral tear on theacetabular rim. The anchor had excellent purchase. The sutures were passed through the labral tissue in a horizontal mattress fashion. The sutures were then tied securely with a sliding, locking knotfollowed by back up half-hitches. The repair was felt to be very secure. Local debridement was performed with a motorized shaver and radiofrequency device. The traction was released. The portal siteswere closed with 3-0 nylon suture and infiltrated with 30 mL of 0.25% Marcaine with epinephrine. A sterile compressive dressing was applied. She was extubated in the operating room and taken to PACU in satisfactory condition. I was present for the entire case. Unless otherwise noted, there were no complications, no blood loss, no cultures obtained, no specimens removed, and no drains retained. Michael Moffett MD 03 20 PM / Michael Moffett MD Confirmation: [id number] Dictation ID: [id number] cc:Hussain Neal MD * Anesthesia Procedure Notes - HALF SECTION IRONER, SCAN 2 - 02/08/2012 1416 EDT * OR PreOp - HALF SECTION IRONER, SCAN 2 - 02/08/2012 1411 EDT * Anesthesia Preprocedure Evaluation - HALF SECTION IRONER, SCAN 2 - 02/08/2012 1213 EDT documented in this encounter Miscellaneous Notes * Scanned Note-Null - HALF SECTION IRONER, SCAN 2 - 02/13/2012 1941 EDT * Scanned Note-Null - HALF SECTION IRONER, SCAN 2 - 02/13/2012 1941 EDT * Anesthesia Post-Eval - Melissa Hooper - 02/08/2012 1630 EDT Post Anesthesia Evaluation Note Date of Service: 02/08/2012 Guzman Jean, a 36 y.o. year old female has received General Anesthesia today. She has been evaluated, assessed and discharged from anesthesia care with stable cardiorespiratory function and alert mental status. The last set of recorded vital signs and pain rating were reviewed: Temp: 36.8 ??C (98.2 ??F) (02/08/12 1545), Heart Rate: 95 BPM (02/08/12 1555), BP: 125/69 mmHg (02/08/12 1555), Resp: 17 (02/08/12 1555), SpO2: 94 % (02/08/12 1555),Numeric Pain Level (Scale 1-10): 7 Guzman Jean participated in this evaluation unless otherwise noted. Her pain, nausea and vomiting have been managed and her body temperature and fluid balance have been restored. Additional monitoring and assessment needs have been addressed. If present, any postoperative events are documented below. MELISSA HOOPER MD 02/08/2012 16:30 * Brief Op Note - Hussain Castro MD - 02/08/2012 1413 EDT Brief Operative Note Sports and Shoulder Service Surgeon: Betina Teran. Assist: Matthew Anthony Pre-Operative Diagnosis: Left hip pain Post-Operative Diagnosis: Left acetabular labral degeneration and tear, anterosuperior. Procedure: Left hip diagnostic arthroscopy with labral debridement and repair of tear. Anesthesia: GET, local. Findings: See dictaiton. Complications: None. Input: 1 L LR Output: Estimated Blood Loss: < 50 cc Urine Output: NR Traction Time: 61 minutes Specimens/Cultures Sent: None. Foreign Material Retained: Suture Final X-Rays Verified? n/a Disposition/Condition: :PACU - hemodynamically stable. documented in this encounter Plan of Treatment Not on file documented as of this encounter Procedures Procedure Name Priority Date/Time Associated Diagnosis Comments IMPLANT RECORD - SCANNED 02/13/2012 19:41 EDT ECG REPORT - SCANNED 02/13/2012 19:41 EDT GLUCOSE, GLUCOMETER Routine 02/08/2012 1 4:30 EDT PORT FLUORO UP TO 1 HOUR 02/08/2012 14:00 EDT GLUCOSE, GLUCOMETER Routine 02/08/2012 1 1:15 EDT documented in this encounter Results * ECG REPORT - SCANNED (02/13/2012 19:41 EDT) 02/13/2012 19:4 1 EDT Narrative 02/13/2012 21:14 EDT Procedure Note HALF SECTION IRONER, SCAN 2 - 02/13/2012 19:41 EDT Scan 2 Supervisor Receiving And Processing PROCEDURE/MINOR OSMAR GICAL ORDERABLES * IMPLANT RECORD - SCANNED (02/13/2012 19:41 EDT) 02/13/2012 19:4 1 EDT Narrative 02/13/2012 21:14 EDT Procedure Note HALF SECTION IRONER, SCAN 2 - 02/13/2012 19:41 EDT Scan 2 Supervisor Receiving And Processing PROCEDURE/MINOR OSMAR GICAL ORDERABLES * (ABNORMAL) GLUCOSE, GLUCOMETER (02/08/2012 14:30 EDT) Glucose, Fingerstick 186(H) 70 - 100 mg/dl [facility] Outreach Assistant ID [id number] [facility] Comment:Test Performed by Nu rsing Services 02/08/2012 14:3 0 EDT 02/08/2012 14:31 EDT Michael Moffett MD CHEMISTRY & BLO OD GAS ORDERABLES Performing Organization Address [facility] de Phone Number [facility] [address] [place] [address] * PORT FLUORO UP TO 1 HOUR (02/08/2012 14:00 EDT) Anatomical Region Laterality Modality Other 02/08/2012 14:0 0 EDT Narrative 02/08/2012 14:00 EDT Non Reportable Exam Procedure Note 02/08/2012 Non Reportable Exam Michael Moffett MD IMG FLUOROSCOPY ORDERABLES * (ABNORMAL) GLUCOSE, GLUCOMETER (02/08/2012 11:15 EDT) Glucose, Fingerstick 207(H) 70 - 100 mg/dl [facility] Outreach Assistant ID [id number] [facility] Comment:Test Performed by Nu rsing Services 02/08/2012 11:1 5 EDT 02/08/2012 11:21 EDT Michael Moffett MD CHEMISTRY & BLO OD GAS ORDERABLES Performing Organization Address [facility] Co de Phone Number [facility] [address] [place] [address] documented in this encounter Visit Diagnoses Diagnosis Pain in joint, pelvic region and thigh Pain in joint, pelvic region and thigh documented in this encounter Administered Medications Inactive Administered Medications - up to 3 most recent administrations Medication Order MAR Action Action Date Dose Rate Site acetaminophen (TYLENOL) tablet 1,000 mg 1,000 mg, oral, PRE-OP ONCE, 1 dose, On Sat02/08/12 at 1130, Routine, Pre Op Day of Surgery Given 02/08/2012 11:22 EDT 1,000 mg ceFAZolin (ANCEF) syringe 2 g 2 g, intravenous, Administer over 10 Minutes, PRE-OP ONCE, 1 dose, On Sat02/08/12 at 1130, Routine, Pre Op Day of Surgery Given by Other 02/08/2012 12:16 EDT 2 g fentanyl citrate (PF) 50 mcg/mL injection 25-100 mcg 25-100 mcg, intravenous, EVERY 5 MIN PRN, Starting on Sat02/08/12 at 1439, Until Sat02/08/12 at 1855, Pain, Routine, Recovery (only) Given 02/08/2012 14:46 EDT 50 mcg Given 02/08/2012 14:41 EDT 50 mcg fentanyl citrate (PF) 50 mcg/mL injection 1 dose, Starting on Sat02/08/12 at 1436, Until Sat02/08/12 at 1441 HYDROmorphone (DILAUDID) 2 mg tablet 1 dose, Starting on Sat02/08/12 at 1435, Until Sat02/08/12 at 1441 HYDROmorphone (DILAUDID) tablet 2-4 mg 2-4 mg, oral, EVERY 4 HOURS PRN, Starting on Sat02/08/12 at 1436, Until Sat02/08/12 at 1855, Pain, Routine Given 02/08/2012 14:41 EDT 4 mg HYDROmorphone (DILAUDID) tablet 4-8 mg 4-8 mg, oral, PACU PRN, 1 dose, Starting on Sat02/08/12 at 1520, Until Sat02/08/12 at 1527, Pain, Routine, Recovery (only) Given 02/08/2012 15:27 EDT 4 mg HYDROmorphone (PF) (DILAUDID) 1 mg/mL injection 0.2-1 mg 0.2-1 mg, intravenous, EVERY 10 MINUTES PRN, Starting on Sat02/08/12 at 1440, Until 02/08/12 at 1855, Pain, Routine, Recovery (only) Given 02/08/2012 15:38 EDT 0.5 mg Given 02/08/2012 15:20 EDT 0.5 mg Given 02/08/2012 15:03 EDT 0.5 mg lactated ringers (LR) infusion at 25 mL/hr, intravenous, CONTINUOUS, Starting on Sat02/08/12 at 1130, Until Sat02/08/12 at 1855, Routine, Pre Op Day of Surgery New Bag 02/08/2012 11:20 EDT 25 mL/hr lactated ringers (LR) infusion at 75 mL/hr, intravenous, CONTINUOUS, Starting on Sat02/08/12 at 1415, Until Sat02/08/12 at 1855, Routine, Recovery (only) Rate Documented 02/08/2012 14:20 EDT 75 mL/hr oxycodone (OXYCONTIN) CR tablet 10 mg 10 mg, oral, PRE-OP ONCE, 1 dose, On Sat02/08/12 at 1130, Routine, Pre Op Day of Surgery Given 02/08/2012 11:23 EDT 10 mg pregabalin (LYRICA) capsule 100 mg 100 mg, oral, PRE-OP ONCE, 1 dose, On Sat02/08/12 at 1130, Routine, Pre Op Day of Surgery Given 02/08/2012 11:22 EDT 100 mg documented in this encounter Discontinued Medications Medication Sig Discontinue Reason Start Date End Da te azithromycin (ZITHROMAX) 250 mg tablet Take 2 tablets (500 mg) on day 1, followed by 1 tablet (250 mg) once daily on days 2 through 5. Error 01/07/2012 02/05/2012 documented as of this encounter Active and Recently Administered Medications Times are shown in EDT. Scheduled Medication Order 02/06/2012 02/07/2012 02/08/2012 acetaminophen (TYLENOL) tablet 1,000 mg (COMPLETED) 1,000 mg, oral, PRE-OP ONCE, 1 dose, On Sat02/08/12 at 1130, Routine, Pre Op Day of Surgery 1122 (Given - Provid er: Stephanie Street RN) ceFAZolin (ANCEF) syringe 2 g (COMPLETED) 2 g, intravenous, Administer over 10 Minutes, PRE-OP ONCE, 1 dose, On Sat02/08/12 at 1130, Routine, Pre Op Day of Surgery 1216 (Given by Other - Provider: Aiyana Sena RN - Comment: given by anesthesia prior to incision) oxycodone (OXYCONTIN) CR tablet 10 mg (COMPLETED) 10 mg, oral, PRE-OP ONCE, 1 dose, On Sat02/08/12 at 1130, Routine, Pre Op Day of Surgery 1123 (Given - Provid er: Stephanie Street RN) pregabalin (LYRICA) capsule 100 mg (COMPLETED) 100 mg, oral, PRE-OP ONCE, 1 dose, On Sat02/08/12 at 1130, Routine, Pre Op Day of Surgery 1122 (Given - Provid er: Stephanie Street RN) Continuous Medication Order 02/06/2012 02/07/2012 02/08/2012 lactated ringers (LR) infusion (CANCELED) at 25 mL/hr, intravenous, CONTINUOUS, Starting on Sat02/08/12 at 1130, Until Sat02/08/12 at 1855, Routine, Pre Op Day of Surgery 1120 (New Bag - Prov ider: Stephanie Street RN) lactated ringers (LR) infusion (CANCELED) at 75 mL/hr, intravenous, CONTINUOUS, Starting on Sat02/08/12 at 1415, Until Sat02/08/12 at 1855, Routine, Recovery (only) 1420 (Rate Documente d - Provider: Shanon Pacheco RN) PRN Medication Order 02/06/2012 02/07/2012 02/08/2012 fentanyl citrate (PF) 50 mcg/mL injection 25-100 mcg (CANCELED) 25-100 mcg, intravenous, EVERY 5 MIN PRN, Starting on Sat02/08/12 at 1439, Until Sat02/08/12 at 1855, Pain, Routine, Recovery (only) 1441 (Given - Provid er: Shanon Pacheco RN)1446 (Given - Provider: Shanon Pacheco RN) HYDROmorphone (DILAUDID) tablet 2-4 mg (CANCELED) 2-4 mg, oral, EVERY 4 HOURS PRN, Starting on Sat02/08/12 at 1436, Until Sat02/08/12 at 1855, Pain, Routine 1441 (Given - Provid er: Shanon Pacheco RN) HYDROmorphone (DILAUDID) tablet 4-8 mg (COMPLETED) 4-8 mg, oral, PACU PRN, 1 dose, Starting on Sat02/08/12 at 1520, Until Sat02/08/12 at 1527, Pain, Routine, Recovery (only) 1527 (Given - Provid er: Shanon Pacheco RN) HYDROmorphone (PF) (DILAUDID) 1 mg/mL injection 0.2-1 mg (CANCELED) 0.2-1 mg, intravenous, EVERY 10 MINUTES PRN, Starting on Sat02/08/12 at 1440, Until Sat02/08/12 at 1855, Pain, Routine, Recovery (only) 1449 (Given - Provid er: Shanon Pacheco RN)1503 (Given - Provider: Shanon Pacheco RN)1520 (Given - Provider: Shanon Pacheco RN)1538 (Given - Provider: Shanon Pacheco RN) documented in this encounter Orders Medications Ordered That Russel ht Not Have Been Administered Count Last Ordered Date First Ordered Date atropine 0.1 mg/mL 10 mL syringe 0.5 mg 1 1 diphenhydrAMINE (BENADRYL) i njection 6.25 mg 1 02/08/2012 naloxone (NARCAN) injection 0.2 mg 1 2011 oxycodone (ROXICODONE) immed iate release tablet 5-10 mg 1 02/08/2012 Admission Count Last Ordered Date First Orde red Date STATUS: OUTPATIENT SURGICAL OP BED/SERVICES 1 02/08/2012 Transfer Count Last Ordered Date First Orde red Date NOTIFY PPS PACU PATIENT DISCHARGE 1 012 documented in this encounter Care Teams Bridge Manager Relationship Specialty Start Date End Date Tamara Neal MD [address] [place] [phone] PCP - General 09/13/08 03/18/13 documented as of this encounter
--- OUTSIDE RECORDS SUMMARY | 2024-02-14 15:25 | XMS_ITS | Encounter Summary ---
Author Organization [facility] Address [address] [place] [address] Care Team Providers Care Pocket Setter Name Role Phone Tamara Neal MD Primary Care Provider + Reason for Visit * Reason Onset Date Comments Appointment Related 03/12/2012 Encounter Details Date Type Department Care Team (Late st Contact Info) Description 03/12/[address] [facility] Rehabilitation Therapy - [facility] [address] [place], [place] [phone] Rox Velasquez, PT [address] [employer] [facility] [address] [facility] [place] [phone] Appointment Related Social History Tobacco [...] * Telephone Encounter - Marisol Thibodeaux - 03/12/2012 0951 EST Called patient to see if she wanted to reschedule. Left message. documented in this encounter Plan of Treatment Not on file documented as of this encounter Visit Diagnoses Not on filedocumented in this encounter Care Teams Pocket Setter Relationship Specialty Start Date End Date Tamara Neal MD [address] [place] [phone] PCP - General 09/13/08 03/18/13 documented as of this encounter
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
--- OUTSIDE RECORDS SUMMARY | 2024-02-14 15:25 | XMS_ITS | Encounter Summary ---
Author Organization [facility] Address [address] [place] [address] Care Team Providers Care Steam Brush Operator Name Role Phone Tamara Neal MD Primary Care Provider + Reason for Visit * Reason Onset Date Comments Medication Questions 07/18/2012 Encounter Details Date Type Department Care Team (Late st Contact Info) Description 07/18/2012 Telephone [facility] Family Medicine - [address] [phone] Tamara Neal MD [address] [place] [phone] Medication Questions Social History Tobacco Use Types [...] per day 35 Each 0 07/27/2012 08/04/2012 documented in this encounter Miscellaneous Notes * Telephone Encounter - Ramesh Alcoceranette - 07/21/2012 3358 EDT Guzman is calling back to check the status of her refills. Please call her back. * Telephone Encounter - Almita Ponce - 07/21/2012 1032 EDT Patient calling today to see when she can lease picker her scripts for her pain medication. * Telephone Encounter - Nadine Stewart - 07/18/2012 1257 EDT Guzman called today, looking for scripts. She said that Dr. Neal was going to write new scripts once her lab results came in. Please call her next week with an update, thanks. documented in this encounter Plan of Treatment Not on file documented as of this encounter Visit Diagnoses Not on filedocumented in this encounter Discontinued Medications Medication Sig Discontinue Reason Start Date End Da te HYDROmorphone (DILAUDID) 8 mg tablet Take 0.5-1 Tabs by mouth 3 times daily as needed for Pain. No more than 3 TABS per day Reorder 07/13/2012 07/18/2012 documented as of this encounter Care Teams Steam Brush Operator Relationship Specialty Start Date End Date Tamara Neal MD [address] [place] [phone] PCP - General 09/13/08 03/18/13 documented as of this encounter
--- OUTSIDE RECORDS SUMMARY | 2024-02-14 15:25 | XMS_ITS | Encounter Summary ---
Author Organization [facility] Address [address] [place] [address] Care Team Providers Care Induction Heating Equipment Setter Name Role Phone Tamara Neal MD Primary Care Provider + Reason for Visit * Reason Comments Post-OP Follow Up Encounter Details Date Type Department Care Team (Late st Contact Info) Description 02/12/2012 15:30 EDT Office Visit [facility] Family Medicine [address] [phone] Tamara Neal MD [address] [place] [phone] Left hip pain (Primary Dx) Social History [...] Sign Reading Time Taken Comments Blood Pressure 148/84 02/12/2012 1530 EDT Pulse 80 02/12/2012 1530 EDT Temperature 37.1 ??C (98.8 ??F) 02/12/2012 1530 EDT Respiratory Rate - - Oxygen Saturation - - Inhaled Oxygen Concentration - - Weight 90.7 kg (200 lb) 02/12/2012 1530 EDT Height 152.4 cm (5') 02/12/2012 1530 EDT Body Mass Index 39.06 02/12/2012 1530 EDT documented in this encounter Ordered Prescriptions Prescription Sig Dispensed Refills Start Date End Da te HYDROmorphone (DILAUDID) 8 mg tablet Take 1 Tab by mouth 4 times daily as needed for Pain. No more than 3.5 - 4 TABS per day 30 Each 0 02/26/2012 03/04/2012 HYDROmorphone (DILAUDID) 8 mg tablet Take 1 Tab by mouth 4 times daily as needed for Pain. No more than 3.5 - 4 TABS per day 56 Each 0 02/12/2012 02/12/2012 documented in this encounter Progress Notes * Tamara Neal MD - 02/12/2012 1559 EDT S: here for f/u left hip pain Is POD#4 left hip arthroscopy and labral tear repair Saw Dr. Moffett earlier today Inc looked good per Ryan Had low grade fever on Sat, 2 Tylenol helped No further fevers Was given Dilaudid 2 mg TABS #45 day of surgery Using 6-8 mg every 4-5 hours. Is out of narcotics now Pre-surgery was using Dilaudid 8 mg QID On crutches, limited touch down with crutches Has PT and will have sutures removed in 2 weeks F/U with Dr. Moffett 04/03 Appt with me 03/04 O: BP 148/84 Pulse 80 Temp(Src) 37.1 ??C (98.8 ??F) (Oral) Ht 152.4 cm (60) Wt 90.719 kg (200lb) BMI 39.06 kg/m2 gen - well, LLE elevated, ambulating with crutches A/P Left hip pain, s/p labral tear repair, POD#4 I expect she will have similar pain med needs as pre-surgery for the next few weeks Rx for Dilaudid 8 mg QID, #56 for 14 days and Rx for same for 02/25 #30 to last through appt with me on 03/04 Anticipate being able to wean down gradually from there Reviewed to call for any fevers > 100.4, drainage from inc, increased redness or pain documented in this encounter Plan of Treatment Not on file documented as of this encounter Visit Diagnoses Diagnosis Left hip pain- Primary Pain in joint, pelvic region and thigh documented in this encounter Discontinued Medications Medication Sig Discontinue Reason Start Date End Da te HYDROmorphone (DILAUDID) 2 mg tablet Take 1-3 Tabs by mouth every 4 hours as needed for Pain. Reorder 02/08/2012 02/12/2012 HYDROmorphone (DILAUDID) 8 mg tablet Take 1 Tab by mouth 4 times daily as needed for Pain. No more than 3.5 - 4 TABS per day Reorder 01/25/2012 02/12/2012 HYDROmorphone (DILAUDID) 8 mg tablet Take 1 Tab by mouth 4 times daily as needed for Pain. No more than 3.5 - 4 TABS per day Reorder 02/12/2012 02/12/2012 documented as of this encounter Care Teams Induction Heating Equipment Setter Relationship Specialty Start Date End Date Tamara Neal MD [address] [place] [phone] PCP - General 09/13/08 03/18/13 documented as of this encounter
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
--- OUTSIDE RECORDS SUMMARY | 2024-02-14 15:25 | XMS_ITS | Encounter Summary ---
Author Organization [facility] Address [address] [place] [address] Care Team Providers Care Access Spec Name Role Phone Tamara Neal MD Primary Care Provider + Reason for Visit * Reason Onset Date Comments Medication Management 03/04/2012 Hydromorph one is only available in 4 mg tablets Encounter Details Date Type Department Care Team (Late st Contact Info) Description 03/04/[address] [address] Tamara Neal MD [address] [place] [phone] Medication Management (Hydromorphone is only available in 4 mg tablets) Social History Tobacco Use Types Packs/Day Years [...] Telephone Encounter - Santa Guerrero RN - 03/05/2012 1025 EST Barber the pharmacist at [facility] is aware of Dr. Neal's response from 03/05 @ 10:14. * Telephone Encounter - Tamara Neal MD - 03/05/2012 1014 EST Yes ok to fill the 03/04 Rx with 4 mg TABS, #84 to replace the Rx for 8 mg TABs #42 Do i need to write a new Rx for either Rx? Alma Neal * Telephone Encounter - Eleanor Biggs LPN - 03/05/2012 0949 EST This nurse spoke with Barber at [facility]. Patient brought in 2 scripts for Hydromorphone 1st one written 03/04/12 to start 03/04 and the 2nd one written 03/04 to start 03/18/12. He does not have 8mg. Tablets. Only 4 mg. Tablets. Script with start date of 03/04/12 looks to be discontinued in [facility]. Is this one ok to fill? and ok to dispense #84 tablets of 4mg. Instead of #42 of 8mg tablets per pharmacist? * Telephone Encounter - Kay Alcocer - 03/04/2012 1730 EST [facility] is calling because they only have 4 mg Hydromorphone tabs available. Guzman would like to get these filled. Please call back. documented in this encounter Plan of Treatment Not on file documented as of this encounter Visit Diagnoses Not on filedocumented in this encounter Care Teams Access Spec Relationship Specialty Start Date End Date Tamara Neal MD [address] [place] [phone] PCP - General 09/13/08 03/18/13 documented as of this encounter
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
--- OUTSIDE RECORDS SUMMARY | 2024-02-14 15:25 | XMS_ITS | Encounter Summary ---
Author Organization [facility] Address [address] [place] [address] Care Team Providers Care Agricultural Research Technician Name Role Phone Tamara eNal MD Primary Care Provider + Encounter Details Date Type Department Care Team (Latest Contact Info) Description 05/08/2012 17:10 EST - 05/08/2012 23:59 EST Hospital Encounter [facility] [address] [place] [address] Neida Dial MD [address] [place] [phone] Discharge Disposition: Home or Self Care Social [...] 50 mcg/Actuation nasal sprayIndications:Pelon rgic rhinitis 1 [place] by Nasal route daily. 1 Bottle 2 08/01/2010 09/24/2012 HYDROmorphone (DILAUDID) 2 mg tablet Take 1 Tab by mouth every 12 hours as needed. 28 Tab 0 04/30/2012 06/17/2012 HYDROmorphone (DILAUDID) 8 mg tablet Take 1 Tab by mouth 3 times daily as needed for Pain. No more than 3 TABS per day 42 Each 0 05/14/2012 05/27/2012 ibuprofen (MOTRIN) 200 mg tablet Take 3 [...] Associated Diagnosis Comments QUANT BETA HCG, Routine 05/08/2012 17:15 EST documented in this encounter Results * HCG (05/08/2012 17:15 EST) Quant Beta HCG, Preg <5 <5 mIU/ml [facility] Comment: Reference Range: Negative = <5 Indeterminate = 5-25 recommend repeat in 48 hours. Positive = >25 05/08/2012 17:1 5 EST 05/08/2012 18:24 EST Neida Dial MD CHEMISTRY & BLOOD GA S ORDERABLES Performing Organization Address City/State/[facility] Co de Phone Number [facility] [address] [place] [address] documented in this encounter Visit Diagnoses Not on filedocumented in this encounter Care Teams Agricultural Research Technician Relationship Specialty Start Date End Date Tamara Neal MD [address] [place] [phone] PCP - General 09/13/08 03/18/13 documented as of this encounter
--- OUTSIDE RECORDS SUMMARY | 2024-02-14 15:25 | XMS_ITS | Encounter Summary ---
Author Organization [facility] Address [address] [place] [address] Care Team Providers Care Workforce Planning Analyst Name Role Phone Tamara Neal MD Primary Care Provider + Reason for Visit * Reason Onset Date Comments 05/08/2012 Encounter Details Date Type Department Care Team (Late st Contact Info) Description 05/08/2012 Telephone [facility] Family Medicine [address] [phone] Tamraa Neal MD [address] [place] [phone] Social History Tobacco Use Types Packs/Day Years [...] encounter Miscellaneous Notes * Telephone Encounter - Latesha Naqvi LPN - 05/09/2012 0812 EST Patient states she had a HCG done through [facility] and the results are negative. Doesn't need any further follow up at this time. * Telephone Encounter - Mecca Ball MD - 05/08/2012 1723 EST Discussed with preceptor. Plan for pt to have beta HCG drawn and if >2000, should have TVUS withGyn MARILU to r/o ectopic . * Telephone Encounter - Almita Ponce - 05/08/2012 6089 EST Patient calling, states she has an IUD in, for about 4 1/2 years. Patient states that she did a home test which was positive. Patient states she called [facility] and they told her thatshe needs a blood test or an US done MARILU. Patient also states that she spoke with Juan and theytold her she needed to get the IUD removed as soon as possible but that they could not do it because she is a diabetic and on insulin. Patient was offered tomorrow but could not get here so is scheduled for 05/13/[address] Ball documented in this encounter Plan of Treatment Not on file documented as of this encounter Visit Diagnoses Diagnosis IUD - Primary Other specified complication of , unspecified as to episode of care documented in this encounter Care Teams Workforce Planning Analyst Relationship Specialty Start Date End Date Tamara Neal MD [address] [place] [phone] PCP - General 09/13/08 03/18/13 documented as of this encounter
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
--- OUTSIDE RECORDS SUMMARY | 2024-02-14 15:25 | XMS_ITS | Encounter Summary ---
Author Organization [facility] Address [address] [place] [address] Care Team Providers Care Data Management Specialist Name Role Phone Tamara Neal MD Primary Care Provider + Reason for Visit * Reason Onset Date Comments Injections 06/20/2012 Encounter Details Date Type Department Care Team (Late st Contact Info) Description 06/20/2012 Telephone [facility] Family Medicine - [address] [address] Tamara Neal MD [address] [place] [phone] Injections Social History Tobacco Use Types Packs/Day Years [...] * Telephone Encounter - Nadine Stewart - 06/20/2012 0829 EST Zoie called said she was suppose to have a cortisone shot today. Was told because she was on a antibiotic they would not do it and rescheduled for 3., documented in this encounter Plan of Treatment Not on file documented as of this encounter Visit Diagnoses Not on filedocumented in this encounter Care Teams Data Management Specialist Relationship Specialty Start Date End Date Tamara Neal MD [address] [place] [phone] PCP - General 09/13/08 03/18/13 documented as of this encounter
--- OUTSIDE RECORDS SUMMARY | 2024-02-14 15:25 | XMS_ITS | Encounter Summary ---
Author Organization [facility] Address [address] [place] [address] Care Team Providers Care Product Sales Representative Name Role Phone Tamara Neal MD Primary Care Provider + Reason for Visit * Reason Comments Pelvic Pain Pt to ED with lower pelvic pain since last night Encounter Details Date Type Department Care Team (Late st Contact Info) Description 06/05/2012 16:09 EST - 06/06/2012 0:01 EST Emergency [facility] Emergency Department - [address] [address] Rojelio Vera PA-C [address] [phone] Mecca Lora PA-C [address] [facility], Level [address] [place] [address] Emergency, MD Kamila Cystitis (Primary Dx) Discharge Disposition: Home or Self [...] Sign Reading Time Taken Comments Blood Pressure 144/78 06/05/20122009 EST Pulse 100 06/05/2012 2221 EST Temperature 35.6 ??C (96 ??F) 06/05/2012 2221 EST Respiratory Rate 16 06/05/2012 1618 EST Oxygen Saturation 99% 06/05/2012 2221 EST Inhaled Oxygen Concentration - - Weight - - Height - - Body Mass Index - - documented in this encounter Discharge Instructions * Discharge Instructions* Rojelio Vera - 06/05/2012 22:08 EST Take antibiotics as prescribed Use Pyridium as directed for the next 2 days to help with pain related to bladder spasms. Vicodin can be used tonight for any severe pain Increase fluid intake Return here with any worsening symptoms such as worsening or uncontrolled pain, development of vomiting, or fevers documented in this encounter Medications at Time [...] 50 mcg/Actuation nasal sprayIndications:Pelon rgic rhinitis 1 [place] by Nasal route daily. 1 Bottle 2 [...] Start Date End Da te sulfamethoxazole-trimethop rim (BACTRIM DS) 800-160 mg per tablet Take 1 Tab by mouth every 12 hours for 7 days. 14 Each 0 06/05/2012 06/12/2012 documented in this encounter Discharge Disposition Disposition Code Departure Means Destination Home or Self Care Car Home documented in this encounter ED Notes * Rojelio Vera - 06/17/2012 0524 EST DOS: 06/05/2012 Chief Complaint Patient presents with ??? Pelvic Pain Pt to ED with lower pelvic pain since last night The patient is a 36 y.o. female who presents today with Pelvic Pain The history is provided by the patient. Pelvic Pain This is a new problem. The current episode started yesterday. The problem occurs continuously. The problem has been unchanged. The pain is moderate. Associated symptoms include dysuria, frequency, pelvic pain and urgency. Pertinent negatives include no chest pain, no anorexia, no chills, no fever, no abdominal pain, no constipation, no diarrhea, no nausea, no vomiting, no vaginal bleeding, no vaginal discharge, no vaginal pain, no headaches, no back pain, no cough, no shortness of breath and norash. Review of Systems Constitutional: Negative for fever and chills. HENT: Negative for neck stiffness. Eyes: Negative for visual disturbance. Respiratory: Negative for cough and shortness of breath. Cardiovascular: Negative for chest pain. Gastrointestinal: Negative for nausea, vomiting, abdominal pain, diarrhea, constipation and anorexia. Genitourinary: Positive for dysuria, urgency, frequency and pelvic pain. Negative for vaginal bleeding, vaginal discharge and vaginal pain. Musculoskeletal: Negative for back pain. Skin: Negative for rash. Neurological: Negative for headaches. Psychiatric/Behavioral: Negative for confusion. All other systems reviewed [...] Dr. Mendez ??? section 1998,2008 times 2 No Known Allergies History Substance [...] ??? Diabetes Paternal Grandfather Vital Signs Temp: 35.6 ??C (96 ??F) Temp src: Tympanic Pulse: 100 Resp: 16 SpO2: 99 % BP: 144/78 mmHg BP Device: BP Machine Patient Position: Sitting BP Cuff Location: Right arm O2 Device: None (Room air) Physical Exam Nursing note and vitals reviewed. Constitutional: She is oriented to person, place, and time. She appears well- developed and well-nourished. Pt does not appear ill HENT: Head: Normocephalic and atraumatic. Nose: Nose normal. Neck: Normal range of motion. Neck supple. No tracheal deviation present. Cardiovascular: Normal rate, regular rhythm and normal heart sounds. Pulmonary/Chest: Breath sounds normal. No respiratory distress. Abdominal: Soft. Bowel sounds are normal. She exhibits no distension. There is tenderness. Moderate suprapubic pain TP, no flank pain Musculoskeletal: Normal range of motion. Neurological: She is alert and oriented to person, place, and time. She has normal strength. No sensory deficit. Skin: No rash noted. Psychiatric: She has a normal mood and affect. Radiology orders: None Procedures ED Course: A medical screening exam was performed. Hx and exam c/s cystitis, urine micro shows 10-50 wbcs, sent for culture and plan to place pt on 7 day course Bactrim. No fever or other systemic ssx. PCP f/u as needed or return here with worsening ssx Disposition: Discharged The patient's pain was managed to an adequate level weighing risk vs. benefit of further medications. Upon departure from the Emergency Department, the patient's pain was 4 on a zero to ten scale. Condition at departure from the Emergency Department: Stable Discharge Prescriptions New Prescriptions SULFAMETHOXAZOLE-TRIMETHOPRIM (BACTRIM DS) 800-160 MG PER TABLET Take 1 Tab by mouth every 12 hoursfor 7 days. MDM Number of Diagnoses or Management Options Cystitis: Diagnosis management comments: 3 Final diagnoses: Cystitis PCP: MD Andrew Mcwilliams was available for supervision. 06/17/2012 5:24 * Kell Oneill, [facility] - 06/09/2012 1639 EST Urine culture growing streptococcus, lactobacillus, and mixed gram positive growth Patient discharged with prescription for TMP/SMX, spoke with patient regarding culture results. Patient reports no fevers, however notes that her pain and burning on urination has not resolved. Recommended that patient either come back to ED for re-evaluation or report to PCP for follow up. Patientreports that she will likely come back to ED this evening. Discussed with Dr. Resendiz. Kell Oneill, Pharm.D. Pager [phone] * Zuleyka Robert RN - 06/05/20122006 EST Blood drawn via saline lock per protocol, purple tube(s) sent to lab per order. documented in this encounter Miscellaneous Notes * Scanned Note-Null - DIETITIAN, SCAN 2 - 06/13/2012 0920 EST documented in this encounter Plan of Treatment Not on file documented as of this encounter Procedures Procedure Name Priority Date/Time Associated Diagnosis Comments URINE SEDIMENT (MICRO) WITHOUT REFLEX TO CULTURE STAT 06/05/2012 20:31 EST BACTERIAL CULTURE, URINE Routine 06/05/2012 20:31 EST POCT TEST, VISUAL READ STAT 06/05/2012 20:07 EST POCT URINE DIPSTICK, CLINITEK STAT 06/05/2012 20:04 EST DIFFERENTIAL Routine 06/05/2012 19:39 EST COMPLETE BLOOD COUNT Routine 06/05/2012 19:39 EST COMPLETE BLOOD COUNT AND DIFFERENTIAL STAT 06/05/2012 19:39 EST documented in this encounter Results * BACTERIAL CULTURE, URINE (06/05/2012 20:31 EST) Specimen Description Urine [facility] Result Less than 10,000 CFU/ml STREPTOCOCCUS, BETA HEMOLYTIC GROUP B (STREPTOCOCCUS AGALACTIAE) [facility] Result 10,000 to 100,000 CFU/ml LACTOBACILLUS SPECIES [facility] Result Less than 10,000 CFU/ml Mixed gram positive growth [facility] Report Status 06/07/2012 Final [facility] Urine specimen (specimen) URINE / Unknown 06/05/2012 20:31 EST 06/05/2012 20:38 EST Rojelio Tyron Vera PA-C MICROBIOLOGY - GENE RAL ORDERABLES Performing Organization Address [facility] Co de Phone Number [facility] [address] [place] [address] * (ABNORMAL) URINE MICROSCOPIC ONLY (06/05/2012 20:31 EST) WBC, UA 10 to 50 0 - 5 /HPF [facility] RBC, UA 5 to 10 0 - 5 /HPF [facility] Squam Epithel, UA Frequent(A) None seen /HPF [facility] Renal Epithel, UA None seen None seen /HPF [facility] Bacteria, UA Rare(A) None seen /HPF [facility] Crystals, UA None seen /HPF [facility] Hyaline Casts, UA None seen /LPF [facility] UA Comment Microscopic results [facility] Comment: are unreliable on urines unrefrig >2hrs or refrig >8hrs. Urine specimen (specimen) URINE / Unknown 06/05/2012 20:31 EST 06/05/2012 20:37 EST Rojelio Tyron Vera PA-C URINALYSIS ORDERABL ES Performing Organization Address [facility] Co de Phone Number [facility] [address] [place] [address] * POCT URINE TEST (06/05/2012 20:07 EST) Test, Urine, POC Negative Reference Range, Negative Control Line Present Yes Background Clear? Yes Urine specimen (specimen) 06/05/2012 20:07 EST Rojelio A Jody PA-C POINT OF CARE TEST ORDERABLES * (ABNORMAL) POCT URINE DIPSTICK (06/05/2012 20:04 EST) Color YELLOW [facility] Clarity, UA SLIGHTLY CLOUDY [facility] Glucose Neg Neg [facility] Bilirubin Neg Neg [facility] Ketones Trace(A) Neg [facility] Specific [place] 1.025 1.001 - 1.035 [facility] Blood Trace(A) Neg [facility] pH 5.5 4.6 - 8.0 [facility] Protein Trace(A) Neg [facility] Urobilinogen 0.2 0.2 - 1.0 E.U./dl [facility] Nitrite Neg Neg [facility] Leuk Esterase 3+(A) Neg [facility] lead manufacturing engineering tech ID [id number] [facility] Comment:Test performed at [facility] Department Urine specimen (specimen) 06/05/2012 20:04 EST 06/05/2012 20:06 EST Rojelio Vera PA-C POINT OF CARE TEST ORDERABLES Performing Organization Address City/State/[facility] Co de Phone Number [facility] [address] [place] [address] * (ABNORMAL) DIFFERENTIAL (06/05/2012 19:39 EST) Neutrophils 60.0 45.5 - 79.7 % [facility] Lymphocytes 36.0 15.0 - 46.8 % [facility] % Atyp Lymphs 2.0 % [facility] Monocytes 1.0(L) 1.8 - 12.0 % [facility] Basophils 1.0 0.2 - 1.4 % [facility] ABS Neutrophils 8.86(H) 2.20 - 8.85 K/cmm [facility] ABS Lymphs 5.32(H) 1.09 - 3.30 K/cmm [facility] ABS Atyp Lymphs 0.30 K/cmm [facility] ABS Monocytes 0.15 0.1 - 0.8 K/cmm [facility] ABS Basophils 0.15(H) 0.01 - 0.11 K/cmm [facility] RBC Morphology Normal [facility] Type of Diff: Manual [facility] 06/05/2012 19:3 9 EST 06/05/2012 20:05 EST Rojelio Tyron Vera PA-C HEMATOLOGY & PF4 OR DERABLES Performing Organization Address [facility] Co de Phone Number [facility] [address] [place] [phone] * (ABNORMAL) HEMAGRAM (06/05/2012 19:39 EST) WBC 14.78(H) 4.0 - 12.4 K/cmm [facility] RBC 4.29 3.86 - 5.04 M/cmm [facility] Hemoglobin 13.9 11.6 - 15.2 gm/dl [facility] HCT 39.6 34.9 - 44.4 % [facility] MCV 93 81 - 98 fl [facility] MCH 32.3 26.7 - 33.3 pg [facility] MCHC 34.9 32.1 - 35.9 gm/dl [facility] PLT 275 141 - 320 K/cmm [facility] RDW-CV 12.4 11.7 - 14.6 % [facility] 06/05/2012 19:3 9 EST 06/05/2012 20:05 EST Rojelio Vera PA-C HEMATOLOGY & PF4 OR DERABLES Performing Organization Address [facility] de Phone Number [facility] [address] [place] [address] documented in this encounter Visit Diagnoses Diagnosis Cystitis- Primary Cystitis, unspecified documented in this encounter Administered Medications Inactive Administered Medications - up to 3 most recent administrations Medication Order MAR Action Action Date Dose Rate Site Hydrocodone w APAP 5-500 mg Tab??STARTER PACK 1 Package, oral, NOW X1, 1 dose, On [place] 06/05/12 at 2230, STAT Go-Pack Dispense 06/05/2012 23:17 EST 1 Package hydrocodone-acetaminophen (LORTAB) 5-500 mg tablet 1 Tab 1 Tablet, oral, NOW X1, 1 dose, On [place] 06/05/12 at 2145, STAT Given 06/05/2012 21:55 EST 1 Tablet ketOROLAC (TORADOL) injection 15 mg 15 mg, intravenous, NOW X1, 1 dose, On [place] 06/05/12 at 2000, STAT Given 06/05/2012 20:01 EST 15 mg Phenazopyridine 200 mg Tab STARTER PACK 1 Package, oral, NOW X1, 1 dose, On [place] 06/05/12 at 2230, STAT Go-Pack Dispense 06/05/2012 23:18 EST 1 Package sodium chloride (NS) 0.9 % 1,000 mL BOLUS 1,000 mL, intravenous, Once (Without Time Specified), 1 dose, Starting on Edwina 06/05/12 at 2000, Until [place] 06/05/12 at 2229, STAT Given 06/05/2012 20:01 EST 1,000 mL sodium chloride (NS) 0.9 % 1,000 mL BOLUS 1,000 mL, intravenous, Once (Without Time Specified), 1 dose, Starting on [place] 06/05/12 at 2200, Until [place] 06/05/12 at 2229, STAT Given 06/05/2012 22:29 EST 1,000 mL sulfamethoxazole-trimethopr im (BACTRIM/C0-TRIMOXAZOLE DS) 800-160 mg per tablet 1 Tab 1 Tablet, oral, NOW X1, 1 dose, On [place] 06/05/12 at 2145, STAT Given 06/05/2012 21:56 EST 1 Tablet documented in this encounter Active and Recently Administered Medications Times are shown in EST. Scheduled Medication Order 06/04/2012 06/05/2012 06/06/2012 Hydrocodone w APAP 5-500 mg Tab??STARTER PACK (COMPLETED) 1 Package, oral, NOW X1, 1 dose, On [place] 06/05/12 at 2230, STAT 2317 (Go-Pack Dispense - Provider: Martha Perez - Comment: dispensed to pt at discharge with instructions) hydrocodone-acetaminophen (LORTAB) 5-500 mg tablet 1 Tab (COMPLETED) 1 Tablet, oral, NOW X1, 1 dose, On [place] 06/05/12 at 2145, STAT 2155 (Given - Provider: Roberto Robert, PRISCILA) ketOROLAC (TORADOL) injection 15 mg (COMPLETED) 15 mg, intravenous, NOW X1, 1 dose, On [place] 06/05/12 at 2000, STAT 2001 (Given - Provider: Roberto Robert, RN) Phenazopyridine 200 mg Tab STARTER PACK (COMPLETED) 1 Package, oral, NOW X1, 1 dose, On [place] 06/05/12 at 2230, STAT 2318 (Go-Pack Dispense - Provider: Martha Perez - Comment: dispensed to pt at discharge with instructions) sodium chloride (NS) 0.9 % 1,000 mL BOLUS (COMPLETED) 1,000 mL, intravenous, Once (Without Time Specified), 1 dose, Starting on [place] 06/05/12 at 2000, Until [place] 06/05/12 at 2229, STAT 2000 (Given - Provider: Roberto Robert RN)2229 (Completed - Provider: Zuleyka Robert RN) sodium chloride (NS) 0.9 % 1,000 mL BOLUS (COMPLETED) 1,000 mL, intravenous, Once (Without Time Specified), 1 dose, Starting on [place] 06/05/12 at 2200, Until [place] 06/05/12 at 2229, STAT 2229 (Given - Provider: Roberto Robert RN) sulfamethoxazole-trimethoprim (BACTRIM/C0-TRIMOXAZOLE DS) 800-160 mg per tablet 1 Tab (COMPLETED) 1 Tablet, oral, NOW X1, 1 dose, On [place] 06/05/12 at 2145, STAT 2156 (Given - Provider: Roberto Robert RN) documented in this encounter Orders Nursing Count Last Ordered Date First Orde red Date INSERT PERIPHERAL IV 1 06/05/2012 documented in this encounter Care Teams Product Sales Representative Relationship Specialty Start Date End Date Tamara Neal MD [address] [place] [phone] PCP - General 09/13/08 03/18/13 documented as of this encounter
--- OUTSIDE RECORDS SUMMARY | 2024-02-14 15:25 | XMS_ITS | Encounter Summary ---
Author Organization [facility] Address [address] [place] [address] Care Team Providers Care Segment Block Layer Name Role Phone Tamara Neal MD Primary Care Provider + Reason for Visit * Reason Onset Date Comments Follow-up 02/25/2012 [facility] 02/24/12 for headache Encounter Details Date Type Department Care Team (Late st Contact Info) Description 02/25/[address] [address] Radha Santiago LPN Follow-up ([facility] 02/24/12 for headache) Social History Tobacco Use Types Packs/Day Years [...] Telephone Encounter - Radha Santiago LPN - 02/25/2012 1404 EDT A message was left with patient's mom for patient to call back to schedule a follow up with Dr. Neal. documented in this encounter Plan of Treatment Not on file documented as of this encounter Visit Diagnoses Not on filedocumented in this encounter Care Teams Segment Block Layer Relationship Specialty Start Date End Date Tamara Neal MD [address] [place] [phone] PCP - General 09/13/08 03/18/13 documented as of this encounter
--- OUTSIDE RECORDS SUMMARY | 2024-02-14 15:25 | XMS_ITS | Encounter Summary ---
Author Organization [facility] Address [address] [place] [address] Care Team Providers Care Case Mgr Name Role Phone Tamara Neal MD Primary Care Provider + Reason for Visit * Reason Comments Pain Guzman is here for a follow-up regarding her left hip pain and medication management Encounter Details Date Type Department Care Team (Late st Contact Info) Description 02/05/2012 15:15 EDT Office Visit [address] [address] Tamara Neal MD [address] [place] [phone] Chronic pain syndrome (Primary Dx); Left hip pain Social History Tobacco Use Types Packs/Day Years [...] Sign Reading Time Taken Comments Blood Pressure 132/82 02/05/2012 1524 EDT Pulse 72 02/05/2012 1524 EDT Temperature 36.2 ??C (97.2 ??F) 02/05/2012 1524 EDT Respiratory Rate - - Oxygen Saturation - - Inhaled Oxygen Concentration - - Weight 90.7 kg (200 lb) 02/05/2012 1524 EDT Height - - Body Mass Index 39.06 02/05/2012 1449 EDT documented in this encounter Progress Notes * Tamara Neal MD - 02/05/2012 5412 EDT Subjective: Patient ID: Guzman Jean is [...] fluticasone (FLONASE) 50 mcg/Actuation nasal spray 1 [place] by Nasal route daily. 1 Bottle 2 [...] for further narcotics documented in this encounter Plan of Treatment Not on file documented as of this encounter Visit Diagnoses Diagnosis Chronic pain syndrome- Primary Left hip pain Pain in joint, pelvic region and thigh documented in this encounter Care Teams Case Mgr Relationship Specialty Start Date End Date Tamara Neal MD [address] [place] [phone] PCP - General 09/13/08 03/18/13 documented as of this encounter
--- OUTSIDE RECORDS SUMMARY | 2024-02-14 15:25 | XMS_ITS | Encounter Summary ---
Author Organization [facility] Address [address] [place] [address] Care Team Providers Care Channeler Name Role Phone Tamara Neal MD Primary Care Provider + Reason for Visit * Reason Onset Date Comments Medication Problem 03/04/2012 Encounter Details Date Type Department Care Team (Late st Contact Info) Description 03/04/2012 Refill [facility] Medicine - [address] [phone] Tamara Neal MD [address] [place] [phone] Medication Problem Social History Tobacco Use Types Packs/Day Years [...] Encounter - Tamara Neal MD - 03/04/2012 1426 EST Patient will need to bring in the 8 mg Rx to be discarded Also i gave her 2 Rx each for 2 weeks Does [facility] pharmacy expect to get the 8 mg tabs in before her next Rx * Telephone Encounter - Nadine Stewart - 03/04/2012 1409 EST Please disregard, patient went to different pharmacy * Telephone Encounter - Nadine Stewart - 03/04/2012 1303 EST Pharmacist from [facility] called said that they do not have the 8 mg diludid that you prescribed. Can the patient get the 4 mg? 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 documented in this encounter Plan of Treatment Not on file documented as of this encounter Visit Diagnoses Not on filedocumented in this encounter Care Teams Channeler Relationship Specialty Start Date End Date Tamara Neal MD [address] [place] [phone] PCP - General 09/13/08 03/18/13 documented as of this encounter
--- OUTSIDE RECORDS SUMMARY | 2024-02-14 15:25 | XMS_ITS | Encounter Summary ---
Author Organization [facility] Address [address] [place] [address] Care Team Providers Care Optical Goods Drill Operator Name Role Phone Tamara Neal MD Primary Care Provider + Reason for Referral * Consult, Test and Treat (Routine/Next Available) - Closed Specialty Diagnoses / Procedures Referred By Contrachell t Referred To Contact Rehab Therapies Diagnoses Left hip pain Tamara Neal MD [address] [place] [phone] Referral ID Status Reason Start Date Expiration Date V isits Requested Visits Authorized [id number] Closed Specialty Services Required 02/26/2012 1 1 Question Answer Reason for Request: left hip pain; going to [facility] PT, 3-4 weks s/p left labral tear repair Reason for Visit * Reason Onset Date Comments Hip Pain 02/26/2012 Encounter Details Date Type Department Care Team (Late st Contact Info) Description 02/26/2012 Telephone [facility] - [address] [address] Tamara Neal MD [address] [place] [phone] Hip Pain Social History Tobacco Use Types Packs/Day [...] Encounter - Tamara Neal MD - 02/26/2012 1805 EDT Done * Telephone Encounter - Almita Ponce - 02/26/2012 1620 EDT Patient would like to know if Dr. Neal would add left hip to her referral for PT at [facility]. documented in this encounter Plan of Treatment Scheduled Referrals Name Type Priority Associated Diagnoses Orde r Schedule AMB CONSULT PHYSICAL THERAPY Outpatient Referral Routine Left hip pain Ordered: 02/26/2012 documented as of this encounter Visit Diagnoses Diagnosis Left hip pain- Primary Pain in joint, pelvic region and thigh documented in this encounter Care Teams Optical Goods Drill Operator Relationship Specialty Start Date End Date Tamara Neal MD [address] [place] [phone] PCP - General 09/13/08 03/18/13 documented as of this encounter
--- OUTSIDE RECORDS SUMMARY | 2024-02-14 15:26 | XMS_ITS | Encounter Summary ---
Author Organization [facility] Address [address] [place] [address] Care Team Providers Care Custom Frame Assembler Name Role Phone Tamara Neal MD Primary Care Provider + Reason for Visit * Reason Onset Date Comments Appointment Related 09/11/2011 Encounter Details Date Type Department Care Team ([facility] Contact Info) Description 09/11/2011 Telephone [facility] Rehabilitation Therapy - Medical Office Building [address] [place], [place] [phone] Naima Rodney, PT Appointment Related Social History [...] encounter Miscellaneous Notes * Telephone Encounter - Liseth Hankins - 09/11/2011 0828 EDT [facility] MEDICAL OFFICE BUILDING ([facility]) [address] [facility] [address] Phone: [phone] Fax: [phone] The patient called to cancel today's appointment and rescheduled for 09/12/11. Liseth Hankins 09/11/2011 8:28 documented in this encounter Plan of Treatment Not on file documented as of this encounter Visit Diagnoses Not on filedocumented in this encounter Care Teams Custom Frame Assembler Relationship Specialty Start Date End Date Tamara Neal MD [address] [place] [phone] PCP - General 09/13/08 03/18/13 documented as of this encounter
--- OUTSIDE RECORDS SUMMARY | 2024-02-14 15:26 | XMS_ITS | Encounter Summary ---
Author Organization [facility] Address [address] [place] [address] Care Team Providers Care Land Law Examiner Name Role Phone Tamara Neal MD Primary Care Provider + Encounter Details Date Type Department Care Team (Latest Contact Info) Description 10/30/2011 8:00 EDT - 10/30/2011 23:59 EDT Hospital Encounter [facility] - Medical Office Building [phone] Tamara Neal MD [address] [place] [phone] Discharge Disposition: Home or Self Care Social [...] mouth every 4 hours as needed. 04/27/2014 APPLE CIDER VINEGAR ORAL Take 1 Tab by mouth daily. 12/31/2013 VILLATORO'S YEAST ORAL Take 1 Tab by mouth daily. 01/07/2012 citalopram (CELEXA) 20 mg tablet Take 1 Tab by mouth daily. 90 Tab 3 06/12/2011 11/26/2011 cyclobenzaprine (FLEXERIL) 10 mg tabletIndications:Chr onic pain syndrome Take 1 Tab by mouth 2 times daily as needed for Muscle Spasms. 60 Tab 2 10/17/2011 01/25/2012 fluticasone (FLONASE) 50 mcg/Actuation nasal sprayIndications:Pelon rgic rhinitis 1 [place] by Nasal route daily. 1 Bottle 2 08/01/2010 09/24/2012 gabapentin (NEURONTIN) 400 mg capsule Take 400 mg by mouth 2 times daily. 01/07/2012 HYDROmorphone (DILAUDID) 8 mg tablet Take 1 Tab by mouth 4 times daily. No More than 4 tabs daily 56 Each 0 11/14/2011 11/26/2011 ibuprofen (MOTRIN) 200 mg tablet Take 3 Tabs by mouth every 6 hours as needed. 12/31/2013 insulin glargine (LANTUS) 100 unit/mL injection 10 units at bedtime 1 Vial 3 06/12/2011 07/09/2012 levonorgestrel (MIRENA) 20 mcg/24 hr IUD 1 Each by Intrauterine route once. 08/26/2008 05/01/2013 metformin (GLUCOPHAGE) 1,000 mg tablet Take 1 Tab by mouth 2 times daily. 180 Tab 3 02/06/2011 11/07/2011 pioglitazone (ACTOS) 30 mg tablet Take 1 [...] Take 1.5 Tabs by mouth at bedtime. Take half to one tablet at bedtime 90 Tab 3 10/17/2011 12/25/2011 documented as of this encounter Discharge Disposition Disposition Code Departure Means Destination Home or Self Prison documented in this encounter Plan of Treatment Not on file documented as of this encounter Visit Diagnoses Not on filedocumented in this encounter Care Teams Land Law Examiner Relationship Specialty Start Date End Date Tamara Neal MD [address] [place] [phone] PCP - General 09/13/08 03/18/13 documented as of this encounter
--- OUTSIDE RECORDS SUMMARY | 2024-02-14 15:26 | XMS_ITS | Encounter Summary ---
Author Organization [facility] Address [address] [place] [id number] Care Team Providers Care Form Tamper Name Role Phone Tamara Neal MD Primary Care Provider + Reason for Visit * Reason Comments Shoulder Pain left shoulder, DOI Encounter Details Date Type Department Care Team (Late st Contact Info) Description 10/03/2011 14:00 EDT Office Visit [facility] - [facility] [place] [address] Joni Lau MD [address] [place] [phone] Shoulder pain, left (Primary Dx); Brachial plexus dysfunction Social History Tobacco Use Types Packs/Day [...] - Inhaled Oxygen Concentration - - Weight 85.7 kg (189 lb) 10/03/2011 1414 EDT Height 152.4 cm (5') 10/03/2011 1414 EDT Body Mass Index 36.91 10/03/2011 1414 EDT documented in this encounter Progress Notes * Joni Lau MD - 10/03/2011 1449 EDT This office note has been dictated. documented in this encounter Procedure Notes * Joni Lau MD - 10/04/2011 0352 EDT [facility] ELECTRODIAGNOSTIC MEDICINE CONSULTATION SERVICE DATE: 10/03/2011 ATTENDING PHYSICIAN: Joni Lau MD REQUESTING PHYSICIAN: Haim Caldwell MD PRIMARY CARE PHYSICIAN: Tamara Neal MD HISTORY: I have seen this young female previously for electrodiagnostics. She is 36 years old. I saw her previously for lower extremity study. She was working at [employer] on approximately 06/11. She states a patient with dementia pulled down very hard on her left arm, causing immediate pain in the left shoulder, scapular region and the left side of her neck. Shortly after, she noticed some numbness out into primarily the ulnar aspect of her left hand. She has seen a couple of providers since then. She has had an MRI of her cervical spine and an MRI of her left shoulder. The shoulder MRI did show some mild tendinosis of the supraspinatus and infraspinatus without an actual tear. The cervical MRI showed relatively mild disk degenerative disease. She saw Dr Haim Caldwell for a comprehensive initialevaluation. His note from 09/07/11 is reviewed and the patient is here today for my evaluation. For past medical history, problem list and medication list, I refer to the [facility] intake. FAMILY HISTORY: Noncontributory. REVIEW OF SYSTEMS: Please see intake format. This is reviewed with the patient and signed. OBJECTIVE: She is a somewhat flat affected female in no apparent distress. She is oriented x3. Her cervical range of motion is intact. She has slightly limited range of motion both shoulders positive painful arc on the left, but a positive empty can test. She clearly is painful over her more distal aspect of her supraspinatus than at the insertion in the shoulder. The biceps, triceps, brachioradialis reflexes are intact. Arm and forearm circumferences are symmetric. Her Adson and Edomndson maneuvers are negative. There is slight weakness of the left hand cable supervisor and ulnar intrinsics compared to the right, althoughit is subtle. Her skin is normal. In order to investigate the status of her proximal and peripheral nerves, the plan is to perform electrodiagnostics. NERVE CONDUCTION STUDY: Nerve Distal Latency Evoked Nerve Conduction Comments (NI<3.6) Response Velocity Amplitude L Median Motor 3.3 8.3 mV F wave 26.1 L Ulnar Motor 3.0 8.3 mV 58 m/sec no change across elbow L Ulnar F wave 26.4 L Ulnar Sensory 3.2 38 mcV L Median Sensory 3.2 45 mcV EMG REPORT: A very detailed study was performed of the left upper extremity. Muscles included the left cervical paraspinals, supraspinatus, infraspinatus, rhomboid, deltoid, biceps, triceps, brachioradialis, pronator teres, flexor carpi ulnaris, abductor pollicis brevis, opponens pollicis, first dorsal interosseous, abductor digiti quinti, extensor indices proprius, extensor pollicis brevis. FINDINGS: There was normal insertional activity in all muscles tested. All muscles showed electrical silence at rest and recruitment patterns proportionate to effort. IMPRESSION: 1. Detailed EMG nerve conduction testing was negative for brachial plexus injury or cervical radiculopathy. That being said, based on her history, she may have had a mild stretch injury, probably of the lower aspect of the brachial plexus that did not cause any axonal injury and she should have a good prognosis for any effect of that to resolve. 2. On her examination, she seems to still have rotator cuff tendinitis. I discussed with her the treatment of these issues and demonstrated external rotation exercise and low row type exercises. I would suggest that this be done in her physical therapy. All of her questions were answered. Electronically Signed by Joni Lau MD 10/04/2011 12:19 Joni Lau MD - Joni Lau MD A - RF Job ID: SM Doc ID: [id number] Ext Doc ID: [id number] cc: MD Haim Mcwilliams MD documented in this encounter Plan of Treatment Not on file documented as of this encounter Visit Diagnoses Diagnosis Shoulder pain, left- Primary Pain in joint, shoulder region Brachial plexus dysfunction Brachial plexus lesions documented in this encounter Care Teams Form Tamper Relationship Specialty Start Date End Date Tamara Neal MD [address] [place] [phone] PCP - General 09/13/08 03/18/13 documented as of this encounter
--- OUTSIDE RECORDS SUMMARY | 2024-02-14 15:26 | XMS_ITS | Encounter Summary ---
Author Organization [facility] Address [address] [place] [address] Care Team Providers Care Cooker Tender Name Role Phone Tamara Neal MD Primary Care Provider + Encounter Details Date Type Department Care Team (Latest Contact Info) Description 08/28/2011 8:30 EDT - 08/28/2011 23:59 EDT Hospital Encounter [facility] - Medical Office Building [phone] Tamara Neal MD [address] [place] [phone] Discharge Disposition: Home or Self Care Social [...] needed for Muscle Spasms. 60 Tab 2 06/12/2011 10/17/2011 fluticasone (FLONASE) 50 mcg/Actuation nasal sprayIndications:Pelon rgic rhinitis 1 [place] by Nasal route daily. 1 Bottle 2 08/01/2010 09/24/2012 HYDROmorphone (DILAUDID) 8 mg tablet Take 1 Tab by mouth 4 times daily as needed. No More than 4 tabs daily 56 Each 0 08/21/2011 09/04/2011 ibuprofen (MOTRIN) 200 mg tablet Take 3 [...] mouth daily. 30 Tab 3 12/12/2010 08/12/2012 simvastatin (ZOCOR) 20 mg tablet Take 1 Tab by mouth every evening. 30 Tab 3 07/03/2011 09/04/2011 trazodone (DESYREL) 100 mg tabletIndications:Chr onic pain syndrome Take 1 Tab by mouth at bedtime. Take half to one tablet at bedtime 90 Tab 3 08/14/2011 10/17/2011 documented as of this encounter Discharge Disposition Disposition Code Departure Means Destination Home or Self Intermediate documented in this encounter Plan of Treatment Not on file documented as of this encounter Visit Diagnoses Not on filedocumented in this encounter Care Teams Cooker Tender Relationship Specialty Start Date End Date Tamara Neal MD [address] [place] [phone] PCP - General 09/13/08 03/18/13 documented as of this encounter
--- OUTSIDE RECORDS SUMMARY | 2024-02-14 15:26 | XMS_ITS | Encounter Summary ---
Author Organization [facility] Address [address] [place] [id number] Care Team Providers Care Electrolytic De Scaler Name Role Phone Tamara Neal MD Primary Care Provider + Reason for Visit * Reason Comments Hip Pain Shoulder Pain Encounter Details Date Type Department Care Team (Late st Contact Info) Description 09/04/2011 15:15 EDT Office Visit [facility] Medicine [address] [phone] Tamara Neal MD [address] [place] [phone] Left hip pain (Primary Dx); Hyperlipidemia; Diabetes mellitus type II, controlled (CMS-HCC) ([facility]); Chronic pain syndrome Discharge Disposition: Auto Discharge Social History Tobacco [...] Sign Reading Time Taken Comments Blood Pressure 126/80 09/04/2011 1502 EDT Pulse 92 09/04/2011 1502 EDT Temperature 37.2 ??C (98.9 ??F) 09/04/2011 1502 EDT Respiratory Rate 16 09/04/2011 1502 EDT Oxygen Saturation - - Inhaled Oxygen Concentration - - Weight 84.4 kg (186 lb) 09/04/2011 1502 EDT Height - - Body Mass Index 36.33 08/20/2011 0807 EDT documented in this encounter Ordered Prescriptions Prescription Sig Dispensed Refills Start Date End Da te HYDROmorphone (DILAUDID) 8 mg tablet Take 1 Tab by mouth 4 times daily. No More than 4 tabs daily 56 Each 0 09/18/2011 10/03/2011 HYDROmorphone (DILAUDID) 8 mg tablet Take 1 Tab by mouth 4 times daily. No More than 4 tabs daily 56 Each 0 09/04/2011 09/04/2011 simvastatin (ZOCOR) 20 mg tablet Take 1 Tab by mouth every evening. 90 Tab 3 09/04/2011 08/12/2012 documented in this encounter Discharge Disposition Disposition Code Departure Means Destination Auto Discharge documented in this encounter Progress Notes * Tamara Neal MD - 09/04/2011 1521 EDT S: here to f/u on hyperlipidemia and left hip pain Bruno Zocor 20 mg daily Recent labs improved 07/02/2011 12:30 09/03/2011 07:56 Cholesterol 226 180 Triglycerides 295 159 HDL 46 55 LDL 121 93 Hip pain is being followed by dr. Moffett in [place] Recent diagnostic injection gave [address]. [address] Moffett that pain relief the day after injecteion He feels could still represent labral tear or other intra-articular issue Ryan wants to pursue arthoscopy, tentatively scheduled for November 21 Has been using Dilaudid 8 mg QID, this was decreased over the winter from 5 tabs daily Ryan is reluctant to decrease further Is currenytl on worker's comp (but has returned to sedentary work) due to shoulder injury, also followed by [facility] (Dr. Caldwell) Recent shoulder MRI without significant Rotator cuff tear Impression: 1. No rotator cuff tendon tear is identified. 2. Distal supraspinatus and anterior aspect of the infraspinatus show mild tendinosis. 3. Findings of minimal subacromial subdeltoid bursitisare evident. 4. Minimal acromioclavicular degenerative changes are evident. Also had cervical spine MRI, multilevel DJD 1. Shallow disc protrusions at C3-C4, C4-C5, C5-C6 and C6-C7. These all produce minimal central spinal narrowing and no associated cord impingement. 2. No significant neuroforaminal stenosis appreciated. 3. Possible synovial cyst arising from the atlantoaxial joint. Has appt at [facility] in September She is concerned that her worker's comp claims she cannot have surgery and go out on ST Disability O: BP 126/80 Pulse 92 Temp(Src) 37.2 ??C (98.9 ??F) (Oral) Resp 16 Wt 84.369 kg (186 lb) Gen - well INAD GAIT - WNL, no limp as she left exam room, no position change discomfort A/P Hip Pain - awaiting hip arthroscopy for possible labral tear I discussed that we want her to WEAN down on narcotics whether or not she has surgery (no place forchronic narcotics and if has surgery want to be on lowest possible dose to decrease post-op pain and narcotic needs) Encouraged her to use Dilaudid 8 mg TID (or even 8 mg - 4 mg - 8 mg - 4 mg, which would still use only 3 tabs daily instead of 4) She is reluctant, stating I can barely manage on 4 TABS daily which is down from 6 daily I am concerned that she will postpone/delay surgery and use this as reason to stay on current Dilaudid dose Asked her to push her Workers Comp/ST Disability Carrier to discuss need for surgery and need despite shoulder injury Also need to discuss with Dr. Caldwell her shoulder issue as MRI does not have significant findings togo along with needing to remain on Workers Comp through October Hyperlipidedmia - imporved and LDL now at goal with Zocor 20 mg daily F/u 4 weeks or sooner prn documented in this encounter Plan of Treatment Not on file documented as of this encounter Visit Diagnoses Diagnosis Left hip pain- Primary Pain in joint, pelvic region and thigh Hyperlipidemia Other and unspecified hyperlipidemia Diabetes mellitus type II, controlled ([facility]) Type II or unspecified type diabetes mellitus without mention of complication, not stated as uncontrolled Chronic pain syndrome documented in this encounter Discontinued Medications Medication Sig Discontinue Reason Start Date End Da te simvastatin (ZOCOR) 20 mg tablet Take 1 Tab by mouth every evening. Reorder 07/03/2011 09/04/2011 HYDROmorphone (DILAUDID) 8 mg tablet Take 1 Tab by mouth 4 times daily as needed. No More than 4 tabs daily Reorder 08/21/2011 09/04/2011 HYDROmorphone (DILAUDID) 8 mg tablet Take 1 Tab by mouth 4 times daily. No More than 4 tabs daily Reorder 09/04/2011 09/04/2011 documented as of this encounter Care Teams Electrolytic De Scaler Relationship Specialty Start Date End Date Tamara Neal MD [address] [place] [phone] PCP - General 09/13/08 03/18/13 documented as of this encounter
--- OUTSIDE RECORDS SUMMARY | 2024-02-14 15:26 | XMS_ITS | Encounter Summary ---
Author Organization [facility] Address [address] [place] [address] Care Team Providers Care Paraprofessional Aide Teacher Name Role Phone Tamara Neal MD Primary Care Provider + Reason for Visit * Reason Comments Wound Infection Pt had tattoo to lef t leg 2 days ago. States increased pain, redness, drainage and swelling today. Pt states she is a diabetic and her FS= 43 yesterday. Has not checked her blood glucose today Encounter Details Date Type Department Care Team (Late st Contact Info) Description 09/18/2011 16:38 EDT - 09/18/2011 18:02 EDT Emergency [facility] Emergency Department - [address] [address] Martin Gaston, PA-C [address] [phone] Emergency, MD Kamila Visit for wound check Discharge Disposition: Home or Self Care Social [...] Sign Reading Time Taken Comments Blood Pressure 183/100 09/18/2011 1642 EDT Pulse 127 09/18/2011 1642 EDT Temperature 37.2 ??C (99 ??F) 09/18/2011 1642 EDT Respiratory Rate 22 09/18/2011 1642 EDT Oxygen Saturation - - Inhaled Oxygen Concentration - - Weight - - Height - - Body Mass Index - - documented in this encounter Discharge Instructions * Attachments The following attachments cannot be sent through Care Everywhere. * WOUND CARE: AFTER YOUR VISIT TO THE EMERGENCY ROOM ([facility]) documented in this encounter Medications at Time [...] 50 mcg/Actuation nasal sprayIndications:Pelon rgic rhinitis 1 [place] by Nasal route daily. 1 Bottle 2 08/01/2010 09/24/2012 gabapentin (NEURONTIN) 400 mg capsule Take 400 mg by mouth 2 times daily. 01/07/2012 HYDROmorphone (DILAUDID) 8 mg tablet Take 1 Tab by mouth 4 times daily. No More than 4 tabs daily 56 Each 0 09/18/2011 10/03/2011 ibuprofen (MOTRIN) 200 mg tablet Take 3 [...] documented in this encounter ED Notes * Annmarie Mcclelland RN - 09/18/2011 5468 EDT Accompanied Felix RICHMOND while exam of left lower leg tattoo being completed. Lee RICHMOND explained in detail to the patient regarding the bruising around her tattoo, that the tattoo did not appear to be infected, but bruised, and swollen from the trauma of the technique used for her tattoo and that antibiotics wouldn't be necessary at this point. He explained what to expect if it becomes infected, to use bacitracin to help reduce the risk for infection instead of vaseline the patient had been using. Explained to keep her leg elevated to help with the swelling which will in turn help with her pain. Patient started crying stating I can't believe I paid $250 for this shit. Asked patient what else we could do to help her, patient states nothing this is bullshit. Lee RICHMOND asked patientif she has had any tylenol or ibuprofen, patient states yes I've had both, it hurts I can't even walk. Lee RICHMOND asked patient if she needed something more for pain. Patient states No, I take dilaud id everyday, I'm not looking for pain meds. Patient tearful and snappy when asked questions. Education provided about getting tattoos and to make sure she goes to a place that is certified for her protection from transferrance of blood board diseases. Offered patient crutches to help her walk, patient states no, I don't want anything. When returned to room to discharge patient, patient states what was his name? I states Lee, It is on your paperwork. Patient states good, now I have hisname for when I get an infection, so I can keith his ass. Asked patient why she is so dissatisfied with her care and what can we do for her. Patient states nothing, just give me the paperwork, I can read it myself. Patient given the paperwork and watched patient ambulate out of department with a limp. * Martin Gaston - 09/18/2011 1742 EDT Images from the original note were not included. DOS: 09/18/2011 Chief Complaint Patient presents with ??? Wound Infection Pt had tattoo to left leg 2 days ago. States increased pain, redness, drainage and swelling today. Pt states she is a diabetic and her FS= 43 yesterday. Has not checked her blood glucose today The patient is a 36 y.o. female who presents today with Wound Infection HPI Comments: 36-year-old female presents to the emergency department for evaluation of left lower leg pain and swelling. Patient reports that she had a tattoo placed on her left lower leg 2 days ago. Patient reports she's had the pain at the site of her tattoo since receiving it 2 days ago. Patient notes today while at work sitting at her desk she noted increased swelling in her lower extremity which increased her pain. Patient presents to the emergency department for further evaluation. The history is provided by the patient. Leg Pain The incident occurred 12 to 24 hours ago. Injury mechanism: recent tattoo. The pain is present in the left leg. The pain is at a severity of 10/10. The pain is severe. The pain has been constant since onset. The symptoms are aggravated by bearing weight and palpation. Review of Systems Constitutional: Negative. HENT: Negative. Respiratory: Negative. Cardiovascular: Negative. Musculoskeletal: Positive for arthralgias (left lower leg). Skin: Positive for color change (ecchymosis left lower leg) and wound (new tattoo left lower leg). Neurological: Negative. Psychiatric/Behavioral: The patient is nervous/anxious. Past Medical History Diagnosis Date ??? Type 2 diabetes mellitus without (mention of) complications 02/15/2005 ??? Routine general medical examination at health care facility 02/15/2005 ??? Polycystic ovaries 01/21/2008 ??? Fatigue ??? Wears glasses ??? Back pain ??? Anxiety ??? LBP (low back pain) 11/14/2010 ??? Depression ??? TIDWELL (headache) ??? Joint pain ??? Arm numbness ??? Hyperlipidemia 09/04/2011 Past Surgical History Procedure Date ??? Tonsillectomy [...] ??? Diabetes Paternal Grandfather Vital Signs Temp: 37.2 ??C (99 ??F) Temp src: Tympanic Pulse: 127 Resp: 22 BP: 183/100 mmHg BP Device: BP Machine O2 Device: None (Room air) Physical Exam Nursing note and vitals reviewed. Constitutional: She is oriented to person, place, and time. She appears well- developed and well-nourished. HENT: Head: Normocephalic and atraumatic. Eyes: EOM are normal. Neck: Normal range of motion. Pulmonary/Chest: Effort normal. Musculoskeletal: Left lower leg: She exhibits tenderness, swelling and edema. She exhibits no bony tenderness, no deformity and no laceration. Legs: Neurological: She is alert and oriented to person, place, and time. Skin: Skin is warm and dry. Psychiatric: She has a normal mood and affect. Her behavior is normal. Radiology orders: None Procedures ED Course: A medical screening exam was performed. Well-developed, obese female. Musculoskeletal examination, left lower extremity, lower leg lateral aspect notes new tattoo. There is positive soft tissue swelling surrounding tattoo and ecchymosis. There is dependent edema noted over her lateral malleolus and proximal dorsal foot. There is mild erythema noted around the tattoo however does not have the appearance of cellulitis. Musculoskeletal examination otherwise unremarkable. Lengthy discussion with the patient regarding risks and dangers of receiving tattoos in a private home from a non-registered sandwich artist. Patient is informed that she has a high risk for gabriel hepatitis, HIV or MRSA infection do to possible unsterile technique. Patient is instructed to washher tattoo with soap and water gently, pat dry and apply Neosporin or bacitracin antiseptic ointment. Patient is encouraged to elevate the affected extremity above the level of her heart to reduce swelling which in turn will reduce pain and discomfort. Patient is informed that there is ecchymosis or bruising surrounding her entire tattoo and that her pain is do to the aggressive nature of the sandwich artist. Patient becomes tearful and agitated towards provider. Nursing staff is present in the room during explanation and treatment course recommended. Patient is offered Tylenol and ibuprofen for pain management, patient is additionally offered narcotic medications if she feels she needs something stronger than Tylenol or ibuprofen. Patient responds that she is already taking Dilaudid on a daily basis.Patient is again asked if there is anything else that can be provided for her. Patient responds tersly just get my discharge instructions I want to get out of here. I can't beleave I spent $250 on this. Patient again is reassured that there are no clinical signs of infection at this time, her pain is secondary to trauma from receiving the tattoo which appears to have been aggressively applied causing significant soft tissue injury which in turn has caused the soft tissue swelling due to her legs being in a dependent position. Disposition: Discharged The patient's pain was managed to an adequate level weighing risk vs. benefit of further medications. Upon departure from the Emergency Department, the patient's pain was 10 on a zero to ten scale. Condition at departure from the Emergency Department: Stable Discharge Prescriptions New Prescriptions No Discharge Prescriptions for this patient MDM Number of Diagnoses or Management Options Visit for wound check: new, no workup Diagnosis management comments: 3 Risk of Complications, Morbidity, and/or Mortality Presenting problems: low Diagnostic procedures: low Management options: minimal Patient Progress Patient progress: stable 1. Visit for wound check PCP: Tamara Neal MD 09/18/2011 17:42 documented in this encounter Miscellaneous Notes * Scanned Note-Null - CLIP WRAPPER, SCAN 2 - 09/21/2011 8992 EDT documented in this encounter Plan of Treatment Not on file documented as of this encounter Visit Diagnoses Diagnosis Visit for wound check Encounter for other specified aftercare documented in this encounter Care Teams Paraprofessional Aide Teacher Relationship Specialty Start Date End Date Tamara Neal MD [address] [place] [phone] PCP - General 09/13/08 03/18/13 documented as of this encounter
--- OUTSIDE RECORDS SUMMARY | 2024-02-14 15:26 | XMS_ITS | Encounter Summary ---
Author Organization [facility] Address [address] [place] [address] Care Team Providers Care Car Repair Supervisor Name Role Phone Tamara Neal MD Primary Care Provider + Reason for Visit * Reason Onset Date Comments Appointment Related 10/02/2011 Encounter Details Date Type Department Care Team (Late st Contact Info) Description 10/02/2011 Telephone [facility] Rehabilitation Therapy - Medical Office Building [address] [place], [place] [phone] Naima Cooper, PT Appointment Related Social History Tobacco Use [...] encounter Miscellaneous Notes * Telephone Encounter - Naima Cooper. - 10/02/2011 0812 EDT [facility] MEDICAL OFFICE BUILDING ([facility]) [address] [facility] [address] Phone: [phone] Fax: [phone] The patient called to cancel today's appointment due to being in the hospital. I did something stupid. Unsure if patient will be in for next appointment this week. NAIMA COOPER, OMAR 10/02/2011 8:13 documented in this encounter Plan of Treatment Not on file documented as of this encounter Visit Diagnoses Not on filedocumented in this encounter Care Teams Car Repair Supervisor Relationship Specialty Start Date End Date Tamara Neal MD [address] [place] [phone] PCP - General 09/13/08 03/18/13 documented as of this encounter
--- OUTSIDE RECORDS SUMMARY | 2024-02-14 15:26 | XMS_ITS | Encounter Summary ---
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 Slight hemolysis Total Protein 7.0 6.5 - 8.3 g/dl [facility] Comment: Results may be affected due to hemolysis. Slight hemolysis Total Alkaline Phosphatase 53 38 - 126 U/L [facility] Comment: Hemolysis will decrease ALKP result Suggest re-evaluation if clinically indicated Slight hemolysis ALT 42 9 - 52 U/L [facility] Comment: Results may be affected due to hemolysis. Slight hemolysis AST 30 15 - 46 U/L [facility] Comment: Results may be affected due to hemolysis. Slight hemolysis Unconjugated Bilirubin 0.9 0.1 - 1.1 mg/dl [facility] Comment: Results may be affected due to hemolysis. Slight hemolysis Conjugated Bilirubin 0.0 0.0 - 0.3 mg/dl [facility] Comment: Results may be affected due to hemolysis. Slight hemolysis Bilirubin, Total 0.9 0.2 - 1.3 mg/dl [facility] Comment: Results may be affected due to hemolysis. Slight hemolysis Blood specimen (specimen) 09/03/2011 7:56 EDT 09/03/2011 8:57 EDT Tamara Neal MD CHEMISTRY & BLOO D GAS ORDERABLES [facility] [address] [place] [address] * LIPID PROFILE (INCLUDES CHOLESTEROL, TRIGLYCERIDES, HDL, LDL) (09/03/2011 7:56 EDT) Cholesterol 180 mg/dl [facility] Comment: Desirable:<200 Borderline High:200-239 High:>pv=641 Slight hemolysis Triglycerides 159 mg/dl [facility] Comment: Normal:<150 Borderline High:150-199 High:200-499 Very High:>he=817 Slight hemolysis HDL 55 mg/dl [facility] Comment: Low:<40 Normal:40-60 Desirable: >60 Slight hemolysis LDL, Calculated 93 mg/dl [facility] Comment: Optimal:<100 Near Optimal:100-129 Borderline High:130-159 High:160-189 Very High:>kg=039 Slight hemolysis Chol/HDL Ratio 3.3 [facility] Comment:Slight hemolysis Fasting? Yes [facility] Blood specimen (specimen) 09/03/2011 7:56 EDT 09/03/2011 8:57 EDT Tamara Neal MD CHEMISTRY & BLOO D GAS ORDERABLES [facility] [address] [place] [address] documented in this encounter Visit Diagnoses Diagnosis Hyperlipidemia Other and unspecified hyperlipidemia documented in this encounter Care Teams School Guard Relationship Specialty Start Date End Date Tamara Neal MD [address] [place] [phone] PCP - General 09/13/08 03/18/13 documented as of this encounter
--- OUTSIDE RECORDS SUMMARY | 2024-02-14 15:26 | XMS_ITS | Encounter Summary ---
Author Organization Health system Address [address] [place] [address] Care Team Providers Care Wing Coverer Name Role Phone Tamara Neal MD Primary Care Provider + Encounter Details Date Type Department Care Team (Latest Contact Info) Description 10/04/2011 8:34 EDT - 10/04/2011 23:59 EDT Hospital Encounter [facility] - Medical Office Building [phone] Tamara Neal MD [address] [place] [phone] Discharge Disposition: Home or Self Care Social [...] 50 mcg/Actuation nasal sprayIndications:Pelon rgic rhinitis 1 [place] by Nasal route daily. 1 Bottle 2 08/01/2010 09/24/2012 gabapentin (NEURONTIN) 400 mg capsule Take 400 mg by mouth 2 times daily. 01/07/2012 HYDROmorphone (DILAUDID) 8 mg tablet Take 1 Tab by mouth 4 times daily. No More than 4 tabs daily 56 Each 0 10/17/2011 10/17/2011 ibuprofen (MOTRIN) 200 mg tablet Take 3 [...] Code Departure Means Destination Home or Self Nursing Home documented in this encounter Plan of Treatment Not on file documented as of this encounter Visit Diagnoses Not on filedocumented in this encounter Care Teams Wing Coverer Relationship Specialty Start Date End Date Tamara Neal MD [address] [place] [phone] PCP - General 09/13/08 03/18/13 documented as of this encounter
--- OUTSIDE RECORDS SUMMARY | 2024-02-14 15:26 | XMS_ITS | Encounter Summary ---
Author Organization [facility] Address [address] [place] [address] Care Team Providers Care Academic Counselor Name Role Phone Tamara Neal MD Primary Care Provider + Reason for Visit * Reason Onset Date Comments Hip Pain 08/20/2011 Encounter Details Date Type Department Care Team (Late st Contact Info) Description 08/20/2011 Orders Only [facility] Sports Medicine Program - [address] [address] Alberto Moffett MD [address] [place] [phone] Hip pain, left (Primary Dx) Social History Tobacco Use Types [...] Procedure Name Priority Date/Time Associated Diagnosis Comments PELVIS 1 OR 2 VIEWS Routine 08/20/2011 9 :26 EDT Hip pain, left HIP UNILATERAL 1 VIEW Routine 08/20/2011 9:26 EDT Hip pain, left documented in this encounter Results * PELVIS 1 OR 2 VIEWS (08/20/2011 9:26 EDT) Anatomical Region Laterality Modality Other 08/20/2011 9:26 EDT 08/20/2011 16:05 EDT Narrative 08/20/2011 16:05 EDT PELVIS 1 OR 2 VIEWS AND HIP UNILATERAL ONE VIEW Aug 20, 2011 09:26:00 AM Signs and Symptoms/Comments: < 719.45-PAIN IN JOINT, PELVIC REGION AND [id number] Left hip pain > Comparison: Findings: A single AP view of the pelvis and a frog-leg lateral view of the left hip were obtained. There is a T-shaped IUD noted in the pelvis. The bony pelvis is intact. The SI joints appear normal. Both hip joints appear normal without evidence for joint space narrowing or erosive change. Impression: Negative plain film exam of the pelvis and left hip. Procedure Note 08/20/2011 PELVIS 1 OR 2 VIEWS AND HIP UNILATERAL ONE VIEW Aug 20, 2011 09:26:00 AM Signs and Symptoms/Comments: < 719.45-PAIN IN JOINT, PELVIC REGION AND [id number] Left hip pain > Comparison: Findings: A single AP view of the pelvis and a frog-leg lateral view of the left hip were obtained. There is a T-shaped IUD noted in the pelvis. The bony pelvis is intact. The SI joints appear normal. Both hip joints appear normal without evidence for joint space narrowing or erosive change. Impression: Negative plain film exam of the pelvis and left hip. Alberto Moffett MD IMG DIAGNOSTIC IMAGING ORDERABLES * HIP UNILATERAL 1 VIEW (08/20/2011 9:26 EDT) Anatomical Region Laterality Modality Other 08/20/2011 9:26 EDT 08/20/2011 16:05 EDT Narrative 08/20/2011 16:05 EDT PELVIS 1 OR 2 VIEWS AND HIP UNILATERAL ONE VIEW Aug 20, 2011 09:26:00 AM Signs and Symptoms/Comments: < 719.45-PAIN IN JOINT, PELVIC REGION AND [id number] Left hip pain > Comparison: Findings: A single AP view of the pelvis and a frog-leg lateral view of the left hip were obtained. There is a T-shaped IUD noted in the pelvis. The bony pelvis is intact. The SI joints appear normal. Both hip joints appear normal without evidence for joint space narrowing or erosive change. Impression: Negative plain film exam of the pelvis and left hip. Procedure Note 08/20/2011 PELVIS 1 OR 2 VIEWS AND HIP UNILATERAL ONE VIEW Aug 20, 2011 09:26:00 AM Signs and Symptoms/Comments: < 719.45-PAIN IN JOINT, PELVIC REGION AND [id number] Left hip pain > Comparison: Findings: A single AP view of the pelvis and a frog-leg lateral view of the left hip were obtained. There is a T-shaped IUD noted in the pelvis. The bony pelvis is intact. The SI joints appear normal. Both hip joints appear normal without evidence for joint space narrowing or erosive change. Impression: Negative plain film exam of the pelvis and left hip. Alberto Moffett MD IMG DIAGNOSTIC IMAGING ORDERABLES documented in this encounter Visit Diagnoses Diagnosis Hip pain, left- Primary Pain in joint, pelvic region and thigh documented in this encounter Care Teams Academic Counselor Relationship Specialty Start Date End Date Tamara Neal MD [address] [place] [phone] PCP - General 09/13/08 03/18/13 documented as of this encounter
--- OUTSIDE RECORDS SUMMARY | 2024-02-14 15:26 | XMS_ITS | Encounter Summary ---
Author Organization [facility] Address [address] [place] [address] Care Team Providers Care Healthcare Marketer Name Role Phone Tamara Neal MD Primary Care Provider + Reason for Visit * Reason Onset Date Comments Medications Refill 08/14/2011 Encounter Details Date Type Department Care Team (Late st Contact Info) Description 08/14/2011 Refill [facility] Family Medicine [address] [address] Tamara Neal MD [address] [place] [phone] Medications Refill Social History Tobacco Use Types [...] Dispensed Refills Start Date End Da te trazodone (DESYREL) 100 mg tabletIndications:Chronic pain syndrome Take 1 Tab by mouth at bedtime. Take half to one tablet at bedtime 90 Tab 3 08/14/2011 10/17/2011 documented in this encounter Miscellaneous Notes * Telephone Encounter - Latesha Naqvi LPN - 08/14/2011 8527 EDT Please sign rx if you feel appropriate * Telephone Encounter - Nadine Stewart - 08/14/2011 1612 EDT Last Refill Date - 08/01/10 qty 90 w/3 refills Last Visit Date - 07/31/11 Next Visit Date - 09/03/11 Is patient out of medication? yes documented in this encounter Plan of Treatment Not on file documented as of this encounter Visit Diagnoses Diagnosis Chronic pain syndrome- Primary documented in this encounter Discontinued Medications Medication Sig Discontinue Reason Start Date End Da te trazodone (DESYREL) 100 mg tabletIndications:Chroni c pain syndrome Take 1 Tab by mouth at bedtime. Take half to one tablet at bedtime Reorder 08/01/2010 08/14/2011 documented as of this encounter Care Teams Healthcare Marketer Relationship Specialty Start Date End Date Tamara Neal MD [address] [place] [phone] PCP - General 09/13/08 03/18/13 documented as of this encounter
--- OUTSIDE RECORDS SUMMARY | 2024-02-14 15:26 | XMS_ITS | Encounter Summary ---
Author Organization [facility] Address [address] [place] [address] Care Team Providers Care Laundry Technician Name Role Phone Tamara Neal MD Primary Care Provider + Reason for Visit * Reason Comments Shoulder Injury left shoudler doi 2. 13.12 Encounter Details Date Type Department Care Team (Late st Contact Info) Description 08/10/2011 13:00 EDT Office Visit [facility] Sports Medicine Program - [address] [address] Unknown, Provider, Haim Caldwell MD [address] [place] [phone] Subacromial bursitis; Rotator cuff tendinitis; Brachial plexus injury, left Social History Tobacco Use Types Packs/Day [...] - - Weight 85.7 kg (189 lb) 08/10/2011 1308 EDT Height 154.9 cm (5' 1) 08/10/2011 1308 EDT Body Mass Index 35.71 08/10/2011 1308 EDT documented in this encounter Progress Notes * Martha Steele - 08/10/2011 1341 EDT BUPIVACAINE LOT # [id number] [facility] # [id number] EXP DATE 10.27.2012 CARCASS WASHER-hospira XYLOCAINE LOT # [id number] [facility] # [id number] EXP DATE 11.27.2012 CARCASS WASHER-AYALA kenalog 40 mg LOT # [id number] [facility] # [id number] EXP DATE CARCASS WASHER- [employer] analia Steele * Haim Caldwell MD - 08/10/2011 1314 EDT Chief Complaint Patient presents with ??? Shoulder Injury left shoudler doi 2. Guzman Jean is seen in consultation at the request of Haim Esteban DO for evaluation of left shoulder pain. SUBJECTIVE: Guzman Jean is a 36 y.o. 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 Her arm was down at her side and the patient pulled her arm down. This is a workers compensation injury. DOI 06/11/11. Immediate severe pain. She tried to continue to work but couldn't. Stopped working at beginning of June. She reports some tingling in her hand but no weakness. Pain localizes to the lower trapezius and medial border of scapula and also down in the lateral deltoid region. She works at [employer] at [employer]. [facility]. Diagnosed with neck and shoulder strain. She has been going to PT at the [facility]. She has gone twice a week (12 visits). 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 Anything that means lifting her arm. 6 out of 10 pain. SANE score of 50%. Past Medical History Diagnosis Date ??? Type 2 diabetes mellitus without (mention of) complications 02/15/2005 ??? Routine general medical examination at health care facility 02/15/2005 ??? Polycystic ovaries 01/21/2008 ??? Fatigue ??? Wears glasses ??? Back pain ??? Anxiety ??? LBP (low back pain) 11/14/2010 Past Surgical History Procedure Date ??? section times 2 ??? Tonsillectomy ??? Cholecystectomy 11/25/2009 Dr. Mendez Current Outpatient Prescriptions Medication Sig Dispense Refill ??? HYDROmorphone (DILAUDID) 8 mg tablet Take 1 Tab by mouth 4 times daily as needed. No More than 4 tabs daily 56 Each 0 ??? VILLATORO'S YEAST ORAL Take 1 Tab by mouth daily. ??? APPLE CIDER VINEGAR ORAL Take 1 Tab by mouth daily. ??? simvastatin (ZOCOR) 20 mg tablet Take 1 Tab by mouth every evening. 30 Tab 3 ??? cyclobenzaprine (FLEXERIL) 10 mg tablet Take 1 Tab by mouth 2 times daily as needed for Muscle Spasms. 60 Tab 2 ??? citalopram (CELEXA) 20 mg tablet Take 1 Tab by mouth daily. 90 Tab 3 ??? insulin glargine (LANTUS) 100 unit/mL injection 10 units at bedtime 1 Vial 3 ??? metformin (GLUCOPHAGE) 1,000 mg tablet Take 1 Tab by mouth 2 times daily. 180 Tab 3 ??? pioglitazone (ACTOS) 30 mg tablet Take 1 Tab by mouth daily. 30 Tab 3 ??? trazodone (DESYREL) 100 mg tablet Take 1 Tab by mouth at bedtime. Take half to one tablet at bedtime 90 Tab 4 ??? fluticasone (FLONASE) 50 mcg/Actuation nasal spray 1 [place] by Nasal route daily. 1 Bottle 2 ??? levonorgestrel (MIRENA) 20 mcg/24 hr IUD 1 Each by Intrauterine route once. 08/26/2008 ??? ibuprofen (MOTRIN) 200 mg tablet Take 3 Tabs by mouth every 6 hours as needed. ??? acetaminophen (TYLENOL) 500 mg tablet Take 2 Tabs by mouth every 4 hours as needed. No Known Allergies Social history: works at [employer]; nonsmoker ROS: A 12 system comprehensive review of systems was documented in the intake form all of which is negative except back pain, shoulder pain, anxiety, depression, headaches and diabetes. OBJECTIVE: Ht 154.9 cm (61) Wt 85.73 kg (189 lb) BMI 35.71 kg/m2 General: awake, alert, NAD, pleasant Neck exam reveals no increased lordosis. Full ROM without evidence of radiculopathy. Negative Spurlings. Focused examination of left shoulder: Inspection: no ecchymosis, no erythema, no deformity, no atrophy, no scars noted. Palpation: no tenderness over the glenohumeral joint, no tenderness in bicipital groove, mild tenderness over the supraspinatus insertion, no tenderness over AC joint, no tenderness over coracoid process. Range of motion: 160 degrees forward elevation. 160 degrees abduction. 60 degrees ER at 0 degrees abduction, 100 degrees ER at 90 degrees abduction, IR to T10 vs T8 Strength testin/5 motor in empty can/scaption with tenderness, 5/5 motor in resisted external rotation. 5/5 motor on subscapular lift off test. Impingement testing: positive Mendoza, positive Neers Special tests: neg anterior and neg posterior translation on load shift testing. neg sulcus sign. Distal neurovascular exam intact. DIAGNOSTIC DATA: Plain films taken previously and independently reviewed by me including true AP, axillary and outlet views of left shoulder reveal a type 2 acromion. Humeral head is well localized in glenoid fossa. MR arthrogram reveals evidence of subacromial bursitis and rotator cuff tendinosis. No full thickness cuff tear. No labral tear. ASSESSMENT: Left shoulder shoulder injury, work related. A combination of rotator cuff tendinitis and subacromial bursitis is noted. She also has symptoms of a brachial plexus traction injury. No motor loss. PLAN: Patient's diagnosis, plain films and treatment options were discussed at length. She should continue to be limited from work if she is unable to perform work duties with certain restrictions. Physical therapy will continue to focus on rotator cuff and scapular stabilizer stretching and strengthening. Postural training will be addressed. Activity modification, ice and OTC medications were recommended as well. Minimize overhead and repetitive use. No heavy lifting. Subacromial injection of corticosteroid were also discussed today. We have decided to go forward with an injection today. After review of alternative treatments and discussion of risks and benefits - benefits include painrelief, risks include bleeding, infection, damage to the surrounding tissues, failure to improve her symptoms and requirement for further injections - patient verbalized understanding and wished to proceed with injection. PROCEDURE NOTE: Left shoulder subacromial injection After verbal consent given, area of posterolateral shoulder was palpated and landmarks were noted, prepped with betadine. Under sterile conditions, subacromial space was infused with 3 cc 2% lidocaine, 3 cc 0.5% marcaine and 2 cc 40 mg/cc kenalog without resistance. Cleansed with isopropyl alcohol and bandaged. Pt tolerated the procedure well. After care was reviewed including icing, use of NSAIDs prn and activity modification. Follow up in 4 weeks. The patient verbalized understanding of the above and agreed with this plan. All of her questions were answered to her satisfaction today. 40 minutes of face to face time was spent with the patient, 25 minutes were spent on counseling andcoordination of care of the patient's left shoulder injury. I would like to thank Haim Esteban DO for this kind referral. I will keep you up to date on Guzman Jean's progress. Haim Caldwell M.D. 08/10/2011 13:59 Cc: Tamara Neal MD documented in this encounter Plan of Treatment Not on file documented as of this encounter Visit Diagnoses Diagnosis Subacromial bursitis Other specified disorders of rotator cuff syndrome of shoulder and allied disorders Rotator cuff tendinitis Disorders of bursae and tendons in shoulder region, unspecified Brachial plexus injury, left Injury to brachial plexus documented in this encounter Care Teams Laundry Technician Relationship Specialty Start Date End Date Tamara Neal MD [address] [place] [phone] PCP - General 09/13/08 03/18/13 documented as of this encounter
--- OUTSIDE RECORDS SUMMARY | 2024-02-14 15:26 | XMS_ITS | Encounter Summary ---
Author Organization [facility] Address [address] [place] [address] Care Team Providers Care Public Policy Mediator Name Role Phone Tamara Neal MD Primary Care Provider + Reason for Visit * Reason Onset Date Comments Other 10/17/2011 Encounter Details Date Type Department Care Team (Late st Contact Info) Description 10/17/2011 Telephone [facility] Family Medicine - [address] [phone] Tamara Neal MD [address] [place] [phone] Other Social History Tobacco Use Types Packs/Day [...] encounter Miscellaneous Notes * Telephone Encounter - Mikki Peñaloza - 10/17/2011 1644 EDT Pt calling to pass along phone numbers to Dr. Neal. W/C contact Mohini Macias ph [phone] Optical ManagerMgr Regalado [phone] documented in this encounter Plan of Treatment Not on file documented as of this encounter Visit Diagnoses Not on filedocumented in this encounter Care Teams Public Policy Mediator Relationship Specialty Start Date End Date Tamara Neal MD [address] [place] [phone] PCP - General 09/13/08 03/18/13 documented as of this encounter
--- OUTSIDE RECORDS SUMMARY | 2024-02-14 15:26 | XMS_ITS | Encounter Summary ---
Author Organization [facility] Address [address] [place] [address] Care Team Providers Care Final Inspector Paper Name Role Phone Tamara Neal MD Primary Care Provider + Reason for Visit * Reason Comments Wound Check ER f/u 09/18/11; here 2nd infection outer aspect left lower leg, had a friend of a friend give me a tattoo on 09/16/11 and it's infected. It's red, swollen, creamy colored drainage and warm around the edges Area holland Encounter Details Date Type Department Care Team (Late st Contact Info) Description 09/20/2011 15:[address] [facility] Family Medicine [address] [address] Unknown, Provider, Mecca Ball MD [address] [place] [phone] Vaccin for DTP (Primary Dx); Tattoo Social History Tobacco Use Types Packs/Day Years [...] Sign Reading Time Taken Comments Blood Pressure 120/60 09/20/2011 1512 EDT Pulse 104 09/20/2011 1512 EDT Temperature 37.2 ??C (98.9 ??F) 09/20/2011 1512 EDT Respiratory Rate - - Oxygen Saturation - - Inhaled Oxygen Concentration - - Weight 87.1 kg (192 lb) 09/20/2011 1512 EDT Height - - Body Mass Index 37.5 09/07/2011 1117 EDT documented in this encounter Ordered Prescriptions Prescription Sig Dispensed Refills Start Date End Da te predniSONE (DELTASONE) 20 mg tablet Take 3 Tabs by mouth daily for 5 days. 15 Tab 0 09/20/2011 09/25/2011 documented in this encounter Progress Notes * Mecca Ball MD - 09/20/2011 1543 EDT Subjective: Patient ID: Guzman Jean is an 36 y.o. female. Chief Complaint Patient presents with ??? Wound Check ER f/u 09/18/11; here 2nd infection outer aspect left lower leg, had a friend of a friend give me atattoo on 09/16/11 and it's infected. It's red, swollen, creamy colored drainage and warm around theedges Area holland HPI Got a tattoo on Saturday (4-5 days ago) and noted redness and swelling started Saturday and Saturday with difficulty walking. Seen in ED on 09/18/2011 and didn't start antibiotics. Now with persisting 9/10pain over area of tattoo, feels like someone poured acid on me. DM-sugars 350-400. Takes lantus 10 units, glucophage 1000 mg bid, actos daily ROS: no fevers +hyperglycemia +wound with pain over tattoo +LLE edema Patient Active Problem List Diagnoses ??? Routine general medical examination at health care facility ??? Type 2 diabetes mellitus without (mention of) complications ??? Polycystic ovaries ??? Contraceptive management ??? Insertion of (intrauterine) contraceptive device ??? Left buttock pain ??? Left hip pain ??? LBP (low back pain) ??? Left thigh pain ??? Hyperlipidemia Past Medical History Diagnosis Date ??? Type 2 diabetes mellitus without (mention of) complications 02/15/2005 ??? Routine general medical examination at health care facility 02/15/2005 ??? Polycystic ovaries 01/21/2008 ??? Fatigue ??? Wears glasses ??? Back pain ??? Anxiety ??? LBP (low back pain) 11/14/2010 ??? Depression ??? TIDWELL (headache) ??? Joint pain ??? Arm numbness ??? Hyperlipidemia 09/04/2011 Current Outpatient Prescriptions on File Prior to Visit Medication Sig Dispense Refill ??? gabapentin (NEURONTIN) 400 mg capsule Take 400 mg by mouth 2 times daily. ??? simvastatin (ZOCOR) 20 mg tablet Take 1 Tab by mouth every evening. 90 Tab 3 ??? HYDROmorphone (DILAUDID) 8 mg tablet Take 1 Tab by mouth 4 times daily. No More than 4 tabs daily 56 Each 0 ??? trazodone (DESYREL) 100 mg tablet Take 1 Tab by mouth at bedtime. Take half to one tablet at bedtime 90 Tab 3 ??? VILLATORO'S YEAST ORAL Take 1 Tab [...] fluticasone (FLONASE) 50 mcg/Actuation nasal spray 1 [place] by Nasal route daily. 1 Bottle 2 [...] No ROS - See HPI Objective: BP 120/60 Pulse 104 Temp(Src) 37.2 ??C (98.9 ??F) (Oral) Wt 87.091 kg (192 lb) Physical Exam Nursing note and vitals reviewed. Constitutional: She is oriented to person, place, and time. She appears well- nourished. No distress. Neurological: She is alert and oriented to person, place, and time. Skin: Left lateral lower leg with 6-7 cm in diameter tattoo with surrounding ring of ecchymosis, minimal erythema however areas underneath tattoo seem to be edematous with bullae developing underneath orange and yellow colors. +1 LLE edema up to knee. +DP pulses. Psychiatric: She has a normal mood and affect. Assessment: 36 yo female with pain following home tattoo. Minimal to no surrounding erythema. Appearance of skin seems less infectious and rather more of a hypersensitivity reaction to dyes used. Plan: Guzman was seen today for wound check. Diagnoses and associated orders for this visit: Vaccin for dtp - Tdap vaccine greater than or equal to 7yo IM Tattoo with hypersensitivity reaction - predniSONE (DELTASONE) 20 mg tablet; Take 3 Tabs by mouth daily for 5 days. -cont to elevate to the level of heart and apply cool compresses to covered wound. Return if symptoms worsen or fail to improve. Mecca Ball MD PGY 2 #[id number] Family Medicine Attestation statement for office patient seen by attending: I saw and examined the patient on the day of this service and agree with the findings and plan of care documented in the resident's/fellow's note. Danelle Olmos MD Family Medicine Attending 09/23/2011 8:33 * Eleanor Biggs LPN - 09/20/2011 1518 EDT Patient Education Topic: Tdap Method: Handout & Verbal Taught to: Patient Barriers: None Outcomes: independent and verbalized understanding Signature: Tdap vaccine adm'd. documented in this encounter Plan of Treatment Not on file documented as of this encounter Visit Diagnoses Diagnosis Need for prophylactic vaccination with combined pvperykmjh-qclgvew-jgglxlmpl (DTP) vaccine- Primary Tattoo Other dyschromia documented in this encounter Orders Immunization/Injection Count Last Ordered Date First Ordered Date TDAP VACCINE =>7YO IM 1 09/20/2011 documented in this encounter Care Teams Final Inspector Paper Relationship Specialty Start Date End Date Tamara Neal MD [address] [place] [phone] PCP - General 09/13/08 03/18/13 documented as of this encounter
--- OUTSIDE RECORDS SUMMARY | 2024-02-14 15:26 | XMS_ITS | Encounter Summary ---
Author Organization [facility] Address [address] [place] [address] Care Team Providers Care Triage Specialist Name Role Phone Tamara Neal MD Primary Care Provider + Reason for Visit * Reason Onset Date Comments Letter for School/Work 10/04/2011 Encounter Details Date Type Department Care Team (Late st Contact Info) Description 10/04/2011 Telephone [facility] Family Medicine [address] [address] Tamara Neal MD [address] [place] [phone] Letter for School/Work Social History Tobacco Use Types Packs/Day Years [...] encounter Miscellaneous Notes * Telephone Encounter - Kay Alcocer - 10/08/2011 1345 EDT Letter has been faxed * Telephone Encounter - Kay Alcocer - 10/08/2011 0821 EDT Guzman is calling back, she is at work today but still needs a return to work note faxed to [phone]. * Telephone Encounter - Awilda Fang, RN - 10/06/2011 1122 EDT Left message for pt to call back. Advised that Saturday provider will not be able to write letter as he is not familiar with her case. Instructed her to call back to find out why she has been off work and how she is doing now. Message can be sent to Dr. Neal for 10/08/11. * Telephone Encounter - Wanda Jordan - 10/06/2011 0950 EDT Please fax letter to #[phone] * Telephone Encounter - Yancy Galarza - 10/06/2011 0947 EDT Patient calling stating she needs a note to return to work on Saturday. When note is complete please fax to patient at [phone]. * Telephone Encounter - Stacy Hawkins - 10/04/2011 9961 EDT Patient needs a note so that she may return to work. 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 documented in this encounter Plan of Treatment Not on file documented as of this encounter Visit Diagnoses Not on filedocumented in this encounter Care Teams Triage Specialist Relationship Specialty Start Date End Date Tamara Neal MD [address] [place] [phone] PCP - General 09/13/08 03/18/13 documented as of this encounter
--- OUTSIDE RECORDS SUMMARY | 2024-02-14 15:26 | XMS_ITS | Encounter Summary ---
Author Organization [facility] Address [address] [place] [address] Care Team Providers Care Systems Project Manager Name Role Phone Tamara Neal MD Primary Care Provider + Encounter Details Date Type Department Care Team (Late st Contact Info) Description 10/16/2011 Abstract [facility] Hand & Upper Extremity Program - [address] [place] [address] Joni Lau MD [address] [place] [phone] Social History Tobacco Use Types Packs/Day Years [...] on filedocumented in this encounter Care Teams Systems Project Manager Relationship Specialty Start Date End Date Tamara Neal MD [address] [place] [phone] PCP - General 09/13/08 03/18/13 documented as of this encounter
--- OUTSIDE RECORDS SUMMARY | 2024-02-14 15:26 | XMS_ITS | Encounter Summary ---
Author Organization [facility] Address [address] [place] [address] Care Team Providers Care Chef German Name Role Phone Tamara Neal MD Primary Care Provider + Reason for Visit * Reason Onset Date Comments Appointment Related 10/04/2011 Encounter Details Date Type Department Care Team (Late st Contact Info) Description 10/04/2011 Telephone [facility] Rehabilitation Therapy - [address] [phone] Erika Anderson MD [address] [place] [phone] Appointment Related Social History Tobacco Use Types [...] * Telephone Encounter - Liseth Hankins - 10/04/2011 1056 EDT I spoke with Bang at Dr. Jayashree Anderson's office regarding generating a psychology referral in [place]. The patient is scheduled to Dr. George Soni [facility] on 10[facility]10[facility]11. documented in this encounter Plan of Treatment Not on file documented as of this encounter Visit Diagnoses Not on filedocumented in this encounter Care Teams Chef German Relationship Specialty Start Date End Date Tamara Neal MD [address] [place] [phone] PCP - General 09/13/08 03/18/13 documented as of this encounter
--- OUTSIDE RECORDS SUMMARY | 2024-02-14 15:26 | XMS_ITS | Encounter Summary ---
Author Organization [facility] Address [address] [place] [address] Care Team Providers Care Senior Lead Software Engineer Name Role Phone Tamara Neal MD Primary Care Provider + Reason for Visit * Reason Onset Date Comments Hip Pain 10/23/2011 Encounter Details Date Type Department Care Team (Late st Contact Info) Description 10/23/2011 Telephone [facility] Family Medicine - [address] [address] Tamara Neal MD [address] [place] [phone] Hip Pain Social History Tobacco Use Types [...] Telephone Encounter - Tamara Neal MD - 11/09/2011 1200 EDT Right, cannot collect WC and Disabilty benefits at same time She needs to decide and sounds like she has * Telephone Encounter - Santa Guerrero RN - 11/09/2011 1051 EDT 11/08 @ 10:51 Message left on the patient's voicemail to call back 11/08 @ 10:55 Ryan was advised of Dr. Neal's response from 11/08 @ 10:21 states I have to cancel the hip surgery until Sept because of being on worker's comp for neck and shoulder pain, if I have the surgery on my hip it would cancel my worker;s comp benefits. * Telephone Encounter - Tamara Neal MD - 11/09/2011 1021 EDT I finally spoke to Sabine (multiple TC went back and forth) and she explained that cannot collect WC and disability together, especially while working at same place of work I still hope she will have the hip surgery later this month and this is what i rec They are not saying she cannot have the surgery, it is just the collection of payments * Telephone Encounter - Mikki Peñaloza - 11/08/2011 1127 EDT Pt calling to find out if Dr. Neal has talked with her pillowcase sewer to see if she is all set forsurgery? * Telephone Encounter - Nadine Stewart - 10/23/2011 1428 EDT Sabine called back would like Dr. Neal call her back in regards to a worker's comp case and hipsurgery for patient, please call, thanks. documented in this encounter Plan of Treatment Not on file documented as of this encounter Visit Diagnoses Not on filedocumented in this encounter Care Teams Senior Lead Software Engineer Relationship Specialty Start Date End Date Tamara Neal MD [address] [place] [phone] PCP - General 09/13/08 03/18/13 documented as of this encounter
--- OUTSIDE RECORDS SUMMARY | 2024-02-14 15:26 | XMS_ITS | Encounter Summary ---
Author Organization [facility] Address [address] [place] [address] Care Team Providers Care Electric Welder Helper Name Role Phone Tamara Neal MD Primary Care Provider + Encounter Details Date Type Department Care Team (Late st Contact Info) Description 08/15/2011 Abstract [facility] Sports Medicine Program - [address] [address] Haim Caldwell MD [address] [place] [phone] Social History Tobacco Use Types [...] on filedocumented in this encounter Care Teams Electric Welder Helper Relationship Specialty Start Date End Date Tamara Neal MD [address] [place] [phone] PCP - General 09/13/08 03/18/13 documented as of this encounter
--- OUTSIDE RECORDS SUMMARY | 2024-02-14 15:26 | XMS_ITS | Encounter Summary ---
Author Organization [facility] Address [address] [place] [address] Care Team Providers Care Deli Slicer Name Role Phone Tamara Neal MD Primary Care Provider + Reason for Visit * Reason Comments Hospital Discharge Follow Up Encounter Details Date Type Department Care Team (Late st Contact Info) Description 10/03/2011 9:45 EDT Office Visit [facility] Family Medicine [address] [address] Tamara Neal MD [address] [place] [phone] Overdose (Primary Dx); Adjustment reaction Social History Tobacco Use Types Packs/Day Years [...] Sign Reading Time Taken Comments Blood Pressure 152/76 10/03/2011 0951 EDT Pulse 112 10/03/2011 0951 EDT Temperature 36.2 ??C (97.2 ??F) 10/03/2011 0951 EDT Respiratory Rate 12 10/03/2011 0951 EDT Oxygen Saturation - - Inhaled Oxygen Concentration - - Weight 86.2 kg (190 lb) 10/03/2011 0951 EDT Height - - Body Mass Index 37.11 09/07/2011 1117 EDT documented in this encounter Patient Instructions * Patient Instructions* Tamara Neal MD - 10/03/2011 10:06 EDT Trial increase Trazodone to 1 1/2 TABS nightly documented in this encounter Ordered Prescriptions Prescription Sig Dispensed Refills Start Date End Da te HYDROmorphone (DILAUDID) 8 mg tablet Take 1 Tab by mouth 4 times daily. No More than 4 tabs daily 56 Each 0 10/17/2011 10/17/2011 HYDROmorphone (DILAUDID) 8 mg tablet Take 1 Tab by mouth 4 times daily. No More than 4 tabs daily 56 Each 0 10/03/2011 10/03/2011 documented in this encounter Progress Notes * Tamara Neal MD - 10/09/2011 0521 EDT S: here for hospital follow Admitted to [facility] 10/01-10/01 for suicide attempt with Insulin overdose Took 100 units Lantus Called ex-, who then notified her parents Parents called 911 and found her still arousable Hospital notes/evaluation reviewed NEG ASA, ETOH, Salicylates Other labs WNL Sugars never went below 100 Spent the night on step down unit for monitoring Met with PSYCH from [facility]/ Counseling prior to discharge Has plans to set up counseling with them Left earlier today Safe plan established by Guzman living/staying with her parents [place] overwhelmed by pain issues and just wanted to be done Has 2 daughters, they spend half time with her STill scared but denies active self harm or suicidal thoughts currently O: BP 152/76 Pulse 112 Temp(Src) 36.2 ??C (97.2 ??F) (Oral) Resp 12 Wt 86.183 kg (190 lb) Gen - sad, fatigued looking but INAD A/P Suicide attempt/gesture with insulin overdose REviewed safety options and discussed importance of counseling and supports Continue Celexa 20 mg daily F/U NW Counseling as discussed at hospital discharge REviewed CRISIS or our recycling collections driver options if needed F/u 1-2 weeks or sooner prn > 50% of this 30 min visit spent counseling documented in this encounter Plan of Treatment Not on file documented as of this encounter Visit Diagnoses Diagnosis Overdose- Primary Poisoning by unspecified drug or medicinal substance Adjustment reaction Unspecified adjustment reaction documented in this encounter Discontinued Medications Medication Sig Discontinue Reason Start Date End Da te HYDROmorphone (DILAUDID) 8 mg tablet Take 1 Tab by mouth 4 times daily. No More than 4 tabs daily Reorder 09/18/2011 10/03/2011 HYDROmorphone (DILAUDID) 8 mg tablet Take 1 Tab by mouth 4 times daily. No More than 4 tabs daily Reorder 10/03/2011 10/03/2011 documented as of this encounter Care Teams Deli Slicer Relationship Specialty Start Date End Date Tamara Neal MD [address] [place] [phone] PCP - General 09/13/08 03/18/13 documented as of this encounter
--- OUTSIDE RECORDS SUMMARY | 2024-02-14 15:26 | XMS_ITS | Encounter Summary ---
Author Organization [facility] Address [address] [place] [address] Care Team Providers Care Conveyor Belt Operator Name Role Phone Tamara Neal MD Primary Care Provider + Encounter Details Date Type Department Care Team (Latest Contact Info) Description 09/03/2011 7:37 EDT - 09/03/2011 23:59 EDT Hospital Encounter [facility] [address] [place] [address] Tamara Neal MD [address] [place] [phone] Discharge Disposition: Home or Self Care Social [...] 50 mcg/Actuation nasal sprayIndications:Pelon rgic rhinitis 1 [place] by Nasal route daily. 1 Bottle 2 [...] Code Departure Means Destination Home or Self Long Term documented in this encounter Plan of Treatment Not on file documented as of this encounter Visit Diagnoses Not on filedocumented in this encounter Care Teams Conveyor Belt Operator Relationship Specialty Start Date End Date Tamara Neal MD [address] [place] [phone] PCP - General 09/13/08 03/18/13 documented as of this encounter
--- OUTSIDE RECORDS SUMMARY | 2024-02-14 15:26 | XMS_ITS | Encounter Summary ---
Author Organization [facility] Address [address] [place] [address] Care Team Providers Care Title One Kindergarten Teacher Name Role Phone Tamara Neal MD Primary Care Provider + Reason for Visit * Reason Comments Shoulder Injury left shoulder doi 2. 12.12 Encounter Details Date Type Department Care Team (Late st Contact Info) Description 09/07/2011 11:30 EDT Office Visit [facility] Sports Medicine Program - [address] [address] Unknown, Provider, Haim Caldwell MD [address] [place] [phone] Brachial plexopathy; Rotator cuff tendinitis; Neck pain Social History Tobacco Use Types Packs/Day [...] - - Weight 83.9 kg (185 lb) 09/07/2011 1117 EDT Height 152.4 cm (5') 09/07/2011 1117 EDT Body Mass Index 36.13 09/07/2011 1117 EDT documented in this encounter Progress Notes * Haim Caldwell MD - 09/07/2011 1128 EDT Chief Complaint Patient presents with ??? Shoulder Injury left shoulder doi 12 SUBJECTIVE: Guzman Jean is a 36 y.o. right hand dominant female who presents to the office to follow up for her left shoulder pain. She was injected in the subacromial space on 08/10/11. She had less than week of pain relief. Partial. Pain was 2 - 3 out of 10. Now back to where it was before. She is experiencing neck pain and tingling, numbness and weakness down the arm and into the hand. 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 [...] region. She works at [employer] at [employer]. She went to [facility] for the injury. Diagnosed with neck and shoulder strain. She has been going [place] [facility]. She has gone twice a week (12 [...] Dr. Mendez ??? section 1998,2007 times 2 Current Outpatient Prescriptions Medication Sig Dispense Refill ??? gabapentin (NEURONTIN) [...] fluticasone (FLONASE) 50 mcg/Actuation nasal spray 1 [place] by Nasal route daily. 1 Bottle 2 [...] anxiety, depression, headaches and diabetes. OBJECTIVE: Ht 152.4 cm (60) Wt 83.915 kg (185 lb) BMI 36.13 kg/m2 General: awake, alert, NAD, pleasant Neck [...] no tenderness over coracoid process. Range of motion (she seems to resist with my passive ROM): 170 degrees forward elevation. 170 degrees abduction. 60 degrees ER at 0 degrees abduction, 100 degrees ER at 90 degrees abduction, IR to T10 vs T8 Strength testin/5 motor in empty can/scaption with tenderness, 5/5 motor in resisted external rotation. 5/5 motor on subscapular lift off test. Impingement testing: Negative Mendoza, jay Emeryers Special tests: neg anterior and neg posterior [...] ASSESSMENT: Left shoulder shoulder injury, work related. Her effort on shoulder physical exam was poor and she appeared to resist motion passively. She has bursitis and cuff tendinitis on MRI but did not have significant response to injection. My sense is this is largely from the brachial plexus and cervical spine. PLAN: Continue physical therapy. Emg to evaluate brachial plexus injury. Evaluation by BASILIO Blackman in spine. There is not much to offer from sports medicine as I do not think her primary pain generator is thebursitis or tendinitis noted on MRI. The patient verbalized understanding of the above and agreed with this plan. All of her questions were answered to her satisfaction today. 25 minutes of face to face time was spent with the patient, 15 minutes were spent on counseling andcoordination of care of the patient's left shoulder injury. Haim Caldwell M.D. 09/07/2011 11:28 Cc: Tamara Neal MD documented in this encounter Plan of Treatment Not on file documented as of this encounter Visit Diagnoses Diagnosis Brachial plexopathy Brachial plexus lesions Rotator cuff tendinitis Disorders of bursae and tendons in shoulder region, unspecified Neck pain Cervicalgia documented in this encounter Historical Medications * This list may reflect changes made after this encounter. Medication Sig Dispensed Refills Start Date End Date gabapentin (NEURONTIN) 400 mg capsule Take 400 mg by mouth 2 times daily. 01/07/2012 added in this encounter Care Teams Title One Kindergarten Teacher Relationship Specialty Start Date End Date Tamara Neal MD [address] [place] [phone] PCP - General 09/13/08 03/18/13 documented as of this encounter
--- OUTSIDE RECORDS SUMMARY | 2024-02-14 15:26 | XMS_ITS | Encounter Summary ---
Author Organization [facility] Address [address] [place] [address] Care Team Providers Care Population Health Manager Name Role Phone Tamara Neal MD Primary Care Provider + Reason for Visit * Reason Comments Pre-op Exam Laparoscope of lef t hip by Dr. Moffett on 01/11/12 at [facility] Sinus Problems x 1 wk;all in my lupis st now Encounter Details Date Type Department Care Team (Latest Contact Info) Description 01/07/2012 10:30 EDT Office Visit [facility] Medicine [address] [address] Nae Naidu MD [address] [place] [phone] Cough; Wheezing-associated respiratory infection; Type 2 diabetes mellitus without (mention of) complications Social History Tobacco Use Types Packs/Day Years [...] Sign Reading Time Taken Comments Blood Pressure 128/60 01/07/2012 1035 EDT Pulse 80 01/07/2012 1054 EDT Temperature 37.4 ??C (99.3 ??F) 01/07/2012 1035 EDT Respiratory Rate - - Oxygen Saturation - - Inhaled Oxygen Concentration - - Weight 90.3 kg (199 lb) 01/07/2012 1035 EDT Height 155.6 cm (5' 1.25) 01/07/2012 1035 EDT Body Mass Index 37.29 01/07/2012 1035 EDT documented in this encounter Ordered Prescriptions Prescription Sig Dispensed Refills Start Date End Da te albuterol (PROVENTIL HFA, VENTOLIN HFA) 90 mcg/actuation inhaler Inhale 2 Puffs as directed every 4 hours as needed for Wheezing. 1 Inhaler 2 01/07/2012 12/31/2013 azithromycin (ZITHROMAX) 250 mg tablet Take 2 tablets (500 mg) on day 1, followed by 1 tablet (250 mg) once daily on days 2 through 5. 6 Tab 0 01/07/2012 02/05/2012 documented in this encounter Progress Notes * Nae Naidu MD - 01/07/2012 1047 EDT Subjective: Guzman Jean is a 36 y.o. female who presents to the office today for a preoperative consultation at the request of Dr. Moffett, who will perform a LEFT hip arthroscopy on 12/1411 at [facility].Current Complaints: +having left hip pain and numbness to the knee. +groin pain. +instability. +difficulty walking. Sitting also very painful. No known blunt trauma. Lifted someone in 08/06 at her home and back gave out. Was lifting and twisting. Had to transfer non-ambulatory person from recliner to wheelchair. Has tried PT, acupuncture, chiro without relief. Now requires daily hydromorphone to control her pain. Was taking percocet. Also needs tylenol and ibuprofen for pain control. Not working now. Has not been able to exercise. MRI 2010: There is contrast penetration into a small focal tear involving the upper portion of the anterior labrum (coronal images 8 to 10). Left femoral-acetabular articular cartilage thickness appears preserved, but with mild chondral thinning and surface fraying suspected in the region of the anterosuperior labral tear and along the superior-lateral margin of the joint. The anterior femoral head neck offset appears decreased with alpha angle measurement of about 60 degrees (upper limits of normal 55 degrees ). Mild osseous hypertrophy on the lateral acetabular margin appears to slightly deeper acetabular cavity. These findings although not specific raise the possibility of the clinical entity of femoral acetabular impingement, but this will need to be correlated clinically. Gluteus minimus showsmild thickening consistent with mild tendinopathy at its insertion onto the anterior facet of the greater trochanter, with minimal amount of edema in the region of the trochanteric bursal space. The gluteus medius tendon has a more normal appearance. No evidence for avascular necrosis in the left femoral head. Impression: 1. Focal small anterosuperior tear. 2. Mild chondral thinning and surface fraying is suspected in the region of the anterosuperior labral tear and along the superior-lateral margin of the joint. 3. Features noted above, which raise the possibility of a mixed pattern of femoral acetabular impingement. However, femoral acetabular impingement syndrome remains a clinical diagnosis and this will need to be correlated clinically. 4. Gluteus minimus shows mild tendinopathy at its distal insertion with only a minimal amount of associated edema in the region of the trochantericbursal space. This could be correlated for any clinical evidence of corresponding lateral left hip region pain. The gluteus medius tendon has a more normal appearance. Past Medical History Diagnosis Date ??? Type [...] 09/04/2011 ??? Hip pain ??? High cholesterol Family History Problem Relation Age of Onset ??? Cancer Maternal Aunt breast cancer ??? Cancer Maternal Grandmother breats cancer ??? Diabetes Paternal Grandmother ??? Diabetes Paternal Grandfather Current Outpatient Prescriptions Medication Sig Dispense Refill ??? citalopram (CELEXA) 40 mg tablet Take 1 Tab by mouth daily. 90 Tab 3 ??? trazodone (DESYREL) 100 mg tablet Take 1.5 Tabs by mouth at bedtime. 90 Tab 3 ??? HYDROmorphone (DILAUDID) 8 mg tablet Take 1 Tab by mouth 4 times daily as needed for Pain. No more than 3.5 - 4 TABS per day 56 Each 0 ??? doxycycline (VIBRA-TABS) 100 mg tablet Take 1 Tab by mouth 2 times daily. 28 Tab 0 ??? metformin (GLUCOPHAGE) 1,000 mg tablet Take 1 Tab by mouth 2 times daily. 60 Tab 11 ??? cyclobenzaprine (FLEXERIL) 10 mg tablet Take 1 Tab by mouth 2 times daily as needed for Muscle Spasms. 60 Tab 2 ??? ramelteon (ROZEREM) 8 mg tablet Take 1 Tab by mouth daily. 30 Each 5 ??? gabapentin (NEURONTIN) 400 mg capsule Take 400 mg by mouth 2 times daily. ??? simvastatin (ZOCOR) 20 mg tablet Take 1 Tab by mouth every evening. 90 Tab 3 ??? VILLATORO'S YEAST ORAL Take 1 Tab by mouth daily. ??? APPLE CIDER VINEGAR ORAL Take 1 Tab by mouth daily. ??? insulin glargine (LANTUS) 100 unit/mL injection 10 units at bedtime 1 Vial 3 ??? pioglitazone (ACTOS) 30 mg tablet Take 1 Tab by mouth daily. 30 Tab 3 ??? fluticasone (FLONASE) 50 mcg/Actuation nasal spray 1 [place] by Nasal route daily. 1 Bottle 2 ??? levonorgestrel (MIRENA) 20 mcg/24 hr IUD 1 Each by Intrauterine route once. 08/26/2008 ??? ibuprofen (MOTRIN) 200 mg tablet Take 3 Tabs by mouth every 6 hours as needed. ??? acetaminophen (TYLENOL) 500 mg tablet Take 2 Tabs by mouth every 4 hours as needed. No Known Allergies History Social History ??? Marital Status: Spouse Name: N/A Number of Children: N/A ??? Years of Education: N/A Occupational History ??? Not on file. Social History Main Topics ??? Smoking status: Former Smoker -- 1.0 packs/day for 5 years Types: Cigarettes Quit date: 08/23/2007 ??? Smokeless tobacco: Never Used ??? Alcohol Use: No ??? Drug Use: No ??? Sexually Active: Not on file Other Topics Concern ??? Not on file Social History Narrative ??? No narrative on file Review of Systems Wants to go ahead with surgery but still sick. Had sinus infection. Neti pot clears mucus. If no neti pot, then yellowish- brownish nasal discharge. +coughing up brown and yellow---it has decreased a lot. Was on doxy but does not think helped. +still coughing with some wheezing. +thinks had fever for a few days last week and is now gone. No sweats or chills. +post tussive vomiting. Has diarrhea all the time--nothing new. I usually get bronchitis twice per year. Usually when the allergies comes out and the seasons change. No urinary symptoms. No CP or SOB. No orthopnea, PND or peripheral edema. No TIDWELL or visual changes. No central or peripheral neurovascular Symptoms. No exertional symptoms or change in exercise tolerance. No diaphoresis or nausea. Had asthma as kid. Needed inhalers for sports and when has gotten sick. Has used inhalers when had bronchitis in the past. No known pertussis exposure. Lab Results Component Value Date HGBA1C 6.9 11/26/2011 Recently FBS usually 100. Reports diabetes not a problem recently. Objective: General appearance: alert, fatigued, no distress Skin: Skin color, tempature, turgor normal. No rashes or lesions Head: Normocephalic, without obvious abnormality, atraumatic Eyes: conjunctivae/corneas clear. PERRL, EOM's intact. Fundi benign Ears: both TM's +slight bulge and pink. LM visible Nose: no discharge, right turbinate red, swollen, left turbinate red, swollen Throat/Mouth: normal findings: lips normal without lesions, palate normal, tongue midline and normal and +posterior pharynx injection with no exudate Neck: supple, symmetrical, trachea midline, no carotid bruit and no JVD Lymph nodes: Cervical, supraclavicular, and axillary nodes normal. Lungs: initial exam with diffuse end expiratory wheezes all posterior loera with popping rhonchi Posterior RUL. After vigorous coughing, all loera clear. No rales. Heart: regular rate and rhythm, S1, S2 normal, no murmur, click, rub or gallop Abdomen: soft, non-tender; bowel sounds normal; no masses, no organomegaly Mental Status: awake and alert; oriented to person, place, and time Assessment: Cough with wheezing Type II DM-controlled Unable to clear for hip scope at this time Plan: 1.patient and I are in agreement after discussion that she will not be cleared for surgery today. She will return to the office 01/08 for reevaluation to see if she can be cleared for surgery at that time. We discussed the risks of proceeding with surgery with her current status and the added comorbidityof type II DM on insulin. 2.ZPACK--#1 as directed. Start today. Take with food. 3.albuterol MDI 2 puffs every 4 hours while awake. Reviewed use of inhaler and technique. May need to add steroid inhaler if she is not improving. 4.discussed importance of hydration. Eat fat free no added sugar/corn starch type yogurt daily. 5.reviewed keep DM under best control possible. Discussed DM dietary compliance. Reviewed diabetic sick rules. Provided education prevent high sugars and DM out of control and impact of health and wellness/illness. 6.reviewed chest PT. OK to go walking. Use humidifier. 7.reviewed may have to R/S surgery if respiratory status is not improved. 8.can use ice to hip prn. No ice to skin. Ice for 10-20 minute sessions. 9.obtain scheduled narcotic Rx from Dr. Neal. documented in this encounter Plan of Treatment Not on file documented as of this encounter Visit Diagnoses Diagnosis Cough Wheezing-associated respiratory infection Other diseases of respiratory system, not elsewhere classified Type 2 diabetes mellitus without (mention of) complications Type II or unspecified type diabetes mellitus without mention of complication, not stated as uncontrolled documented in this encounter Discontinued Medications Medication Sig Discontinue Reason Start Date End Da te gabapentin (NEURONTIN) 400 mg capsule Take 400 mg by mouth 2 times daily. Therapy completed 01/07/2012 doxycycline (VIBRA-TABS) 100 mg tablet Take 1 Tab by mouth 2 times daily. Patient Stopped Taking 12/25/2011 01/07/2012 VILLATORO'S YEAST ORAL Take 1 Tab by mouth daily. Patient Stopped Taking 01/07/2012 documented as of this encounter Care Teams Population Health Manager Relationship Specialty Start Date End Date Tamara Neal MD [address] [place] [phone] PCP - General 09/13/08 03/18/13 documented as of this encounter
--- OUTSIDE RECORDS SUMMARY | 2024-02-14 15:26 | XMS_ITS | Encounter Summary ---
Author Organization [facility] Address [address] [place] [address] Care Team Providers Care Mold Construction Supervisor Name Role Phone Tamara Neal MD Primary Care Provider + Reason for Visit * Reason Onset Date Comments Appointment Related 09/17/2011 Encounter Details Date Type Department Care Team (Late st Contact Info) Description 09/17/2011 Telephone [facility] Rehabilitation Therapy - Medical Office Building [address] [place] [phone] Naima Rodney, PT Appointment Related Social History [...] * Telephone Encounter - Liseth Hankins - 09/17/2011 1259 EDT Physical Therapy Progress Note dated 09/12/11 faxed to PROPELLER LAYOUT WORKER at FAX: [phone]. Claim #: [id number] documented in this encounter Plan of Treatment Not on file documented as of this encounter Visit Diagnoses Not on filedocumented in this encounter Care Teams Mold Construction Supervisor Relationship Specialty Start Date End Date Tamara Neal MD [address] [place] [phone] PCP - General 09/13/08 03/18/13 documented as of this encounter
--- OUTSIDE RECORDS SUMMARY | 2024-02-14 15:26 | XMS_ITS | Encounter Summary ---
Author Organization [facility] Address [address] [place] [address] Care Team Providers Care Slide Maker Name Role Phone Tamara Neal MD Primary Care Provider + Encounter Details Date Type Department Care Team (Late st Contact Info) Description 10/23/2011 Abstract [facility] Spine Program - [address] [place] [address] Marcin Chacko PA-C [address] [facility] [place] [phone] Social History Tobacco Use Types [...] on filedocumented in this encounter Care Teams Slide Maker Relationship Specialty Start Date End Date Tamara Neal MD [address] [place] [phone] PCP - General 09/13/08 03/18/13 documented as of this encounter
--- OUTSIDE RECORDS SUMMARY | 2024-02-14 15:26 | XMS_ITS | Encounter Summary ---
Author Organization [facility] Address [address] [place] [address] Care Team Providers Care Parenting Skills Instructor Name Role Phone Tamara Neal MD Primary Care Provider + Annette Sidhu APRN Primary Care Provider + [phone] Jossie Patton APRN Primary Care Provider + [phone] Stephanie Santos MD Primary Care Provider [phone] Encounter Details Date Type Department Care Team (Late st Contact Info) Description 10/30/2011 Documentation Visit [facility] Rehabilitation Therapy - Medical Office Building [address] [place] [address] Marina Soni, PhD Social History Tobacco Use Types Packs/Day Years [...] documented as of this encounter Care Teams Parenting Skills Instructor Relationship Specialty Start Date End Date Tamara Neal MD [address] [place] [phone] PCP - General 09/13/08 03/18/13 Annette Sidhu APRN [address] [place] [phone] PCP - General 03/19/13 07/06/19 Jossie Patton APRN [address] [place] [phone] PCP - General 07/07/19 11/10/23 Stephanie Santos MD [address] [place] [phone] PCP - General Family Medicine - Primary Care 11/11/23 documented as of this encounter
--- OUTSIDE RECORDS SUMMARY | 2024-02-14 15:26 | XMS_ITS | Encounter Summary ---
Author Organization [facility] Address [address] [place] [address] Care Team Providers Care Equipment Mechanic Specialist Name Role Phone Tamara Neal MD Primary Care Provider + Reason for Visit * Reason Onset Date Comments Leg Swelling 09/18/2011 Encounter Details Date Type Department Care Team (Late st Contact Info) Description 09/18/2011 Telephone [facility] [address] [phone] Santa Guerrero RN Leg Swelling Social History Tobacco Use Types Packs/Day Years [...] Telephone Encounter - Santa Guerrero RN - 09/18/2011 3616 EDT Guzman called states my friend gave me a tattoo on Saturday. My leg is now swollen, red and oozing yellow/ cream colored pus. Pain level of 10/10. I feel lousy.' Referred to the emergency room. The patient indicates understanding of these issues and agrees with the plan. Patient Education Topic: pain scale Method: Verbal Taught to: Patient Barriers: None Outcomes: independent and verbalized understanding Signature: documented in this encounter Plan of Treatment Not on file documented as of this encounter Visit Diagnoses Not on filedocumented in this encounter Care Teams Equipment Mechanic Specialist Relationship Specialty Start Date End Date Tamara Neal MD [address] [place] [phone] PCP - General 09/13/08 03/18/13 documented as of this encounter
--- OUTSIDE RECORDS SUMMARY | 2024-02-14 15:26 | XMS_ITS | Encounter Summary ---
Author Organization [facility] Address [address] [place] [address] Care Team Providers Care Corporate Statistical Financial Analyst Name Role Phone Tamara Neal MD Primary Care Provider + Reason for Referral * Other Type (Routine/Next Available) - Closed Specialty Diagnoses / Procedures [facility] To Contact Diagnoses Insomnia Tamara Neal MD [address] [place] [phone] Referral ID Status Reason Start Date Expiration Date V isits Requested Visits Authorized [id number] Closed Other 10/17/2011 1 1 Question Answer Medication to be Prior Authorized: rozerem 8 mg Comments The purpose of this consult request is to inform the scheduling staff that a medication needs to be prior-authorized before it is prescribed and/or administered. Failed trazodone, melatonin Reason for Visit * Reason Comments Back Pain Encounter Details Date Type Department Care Team (Late st Contact Info) Description 10/17/2011 11:00 EDT Office Visit [facility] - [address] [address] Tamara Neal MD [address] [place] [phone] Chronic pain syndrome (Primary Dx); Insomnia Social History Tobacco Use Types Packs/Day Years [...] Sign Reading Time Taken Comments Blood Pressure 132/78 10/17/2011 1105 EDT Pulse 72 10/17/2011 1105 EDT Temperature 36.3 ??C (97.4 ??F) 10/17/2011 1105 EDT Respiratory Rate 16 10/17/2011 1105 EDT Oxygen Saturation - - Inhaled Oxygen Concentration - - Weight 84.8 kg (187 lb) 10/17/2011 1105 EDT Height - - Body Mass Index 36.52 10/11/2011 1504 EDT documented in this encounter Patient Instructions * Patient Instructions* Tamara Neal MD - 10/17/2011 11:44 EDT PLEASE GIVE SENIOR SALES ADMINISTRATOR AND KETTLE SKIMMER PHONE NUMBER FOR FUR BLOWING MACHINE ATTENDANT WORKERS COMP so I can try to call to discuss surgery documented in this encounter Ordered Prescriptions Prescription Sig Dispensed Refills Start Date End Da te HYDROmorphone (DILAUDID) 8 mg tablet Take 1 Tab by mouth 4 times daily. No More than 4 tabs daily 56 Each 0 11/14/2011 11/26/2011 HYDROmorphone (DILAUDID) 8 mg tablet Take 1 Tab by mouth 4 times daily. No More than 4 tabs daily 56 Each 0 10/31/2011 10/17/2011 ramelteon (ROZEREM) 8 mg tablet Take 1 Tab by mouth daily. 30 Each 5 10/17/2011 08/12/2012 cyclobenzaprine (FLEXERIL) 10 mg tabletIndications:Chronic pain syndrome Take 1 Tab by mouth 2 times daily as needed for Muscle Spasms. 60 Tab 2 10/17/2011 01/25/2012 trazodone (DESYREL) 100 mg tabletIndications:Chronic pain syndrome Take 1.5 Tabs by mouth at bedtime. Take half to one tablet at bedtime 90 Tab 3 10/17/2011 12/25/2011 documented in this encounter Progress Notes * Tamara Neal MD - 10/21/2011 9415 EDT S: here to f/u on chronic pain issues (LBP/hip pain As well as recent suicide gesture with insulin OD 2 weeks ago Spent 1 night in [facility] Has been Living at her parents house since Also started counseling Marina Soni No further self harm or suicidal thoughts Sleep has been recent issue Increased Trazodone to 150 mg nightly without relief Melatonin in past has not been helpful Need to avoid Ambien or other controlled substances at this time Is already on high dose Dilaudid due to MSK pain issues Left shoulder and neck issues ongoing as well No significant brachial plexus injury seen on EMG testing 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 She states her employer could no longer provide light duty desk work Is awaiting hip surgery with Dr. Moffett but b/c is still out on due to left shoulder injury difficult to pursue O: BP 132/78 Pulse 72 Temp(Src) 36.3 ??C (97.4 ??F) (Oral) Resp 16 Wt 84.823 kg (187 lb) Gen - well INAD A/P Depression, recent suicide gesture Close supervision Continue counseling Con't Celexa 20 mg daily Insomnia likely part of this Try Rozerem 8 mg QHS, likely will need PA Chronic pain - I need to call and discuss hip surgery with piano case maker, unclear why cannot pursue necessary procedure during time off work For now continue Dilaudid, which we have weaned down to 8 mg four times daily F/u 4 weeks or sooner prn documented in this encounter Plan of Treatment Scheduled Referrals Name Type Priority Associated Diagnoses Order Schedule AMB MEDICATION PRIOR AUTHORIZATION Outpatient Referral Routine Insomnia Ordered: 10/17/2011 documented as of this encounter Visit Diagnoses Diagnosis Chronic pain syndrome- Primary Insomnia Insomnia, unspecified documented in this encounter Discontinued Medications Medication Sig Discontinue Reason Start Date End Da te trazodone (DESYREL) 100 mg tabletIndications:Chroni c pain syndrome Take 1 Tab by mouth at bedtime. Take half to one tablet at bedtime Reorder 08/14/2011 10/17/2011 cyclobenzaprine (FLEXERIL) 10 mg tabletIndications:Chroni c pain syndrome Take 1 Tab by mouth 2 times daily as needed for Muscle Spasms. Reorder 06/12/2011 10/17/2011 HYDROmorphone (DILAUDID) 8 mg tablet Take 1 Tab by mouth 4 times daily. No More than 4 tabs daily Reorder 10/17/2011 10/17/2011 HYDROmorphone (DILAUDID) 8 mg tablet Take 1 Tab by mouth 4 times daily. No More than 4 tabs daily Reorder 10/31/2011 10/17/2011 documented as of this encounter Care Teams Corporate Statistical Financial Analyst Relationship Specialty Start Date End Date Tamara Neal MD [address] [place] [phone] PCP - General 09/13/08 03/18/13 documented as of this encounter
--- OUTSIDE RECORDS SUMMARY | 2024-02-14 15:26 | XMS_ITS | Encounter Summary ---
Author Organization [facility] Address [address] [place] [address] Care Team Providers Care Car And Yard Supervisor Name Role Phone Tamara Neal MD Primary Care Provider + Reason for Visit * Reason Onset Date Comments Medications Refill 11/07/2011 Encounter Details Date Type Department Care Team (Late st Contact Info) Description 11/07/2011 Refill [facility] [address] [address] Tamara Neal MD [address] [place] [phone] Medications Refill Social History Tobacco Use Types [...] Dispensed Refills Start Date End Da te metformin (GLUCOPHAGE) 1,000 mg tablet Take 1 Tab by mouth 2 times daily. 60 Tab 0 11/07/2011 11/26/2011 documented in this encounter Miscellaneous Notes * Telephone Encounter - Nadine Stewart - 11/07/2011 1002 EDT Name of Medication - metformin 1000 mg Last Refill Date - 02/06/11 qty 180 w/2 refills Last Visit Date - 10/17/11 Next Visit Date - 11/13/11 Is patient out of medication? No, per pharmacy documented in this encounter Plan of Treatment Not on file documented as of this encounter Visit Diagnoses Not on filedocumented in this encounter Discontinued Medications Medication Sig Discontinue Reason Start Date End Da te metformin (GLUCOPHAGE) 1,000 mg tablet Take 1 Tab by mouth 2 times daily. Reorder 02/06/2011 11/07/2011 documented as of this encounter Care Teams Car And Yard Supervisor Relationship Specialty Start Date End Date Tamara Neal MD [address] [place] [phone] PCP - General 09/13/08 03/18/13 documented as of this encounter
--- OUTSIDE RECORDS SUMMARY | 2024-02-14 15:26 | XMS_ITS | Encounter Summary ---
Author Organization [facility] Address [address] [place] [address] Care Team Providers Care Commercial Producer Name Role Phone Tamara Neal MD Primary Care Provider + Reason for Visit * Reason Comments Hip Pain follow up Encounter Details Date Type Department Care Team (Late st Contact Info) Description 12/25/2011 16:30 EDT Office Visit [facility] [address] [phone] Tamara Neal MD [address] [place] [phone] Left hip pain; LBP (low back pain); Chronic pain syndrome; Sinusitis, acute Social History Tobacco Use Types Packs/Day Years [...] Sign Reading Time Taken Comments Blood Pressure 138/80 12/25/2011 1628 EDT Pulse 100 12/25/2011 1628 EDT Temperature 37.4 ??C (99.3 ??F) 12/25/2011 1628 EDT Respiratory Rate 16 12/25/2011 1628 EDT Oxygen Saturation - - Inhaled Oxygen Concentration - - Weight 88 kg (194 lb) 12/25/2011 1628 EDT Height - - Body Mass Index 37.89 10/11/2011 1504 EDT documented in this encounter Ordered Prescriptions Prescription Sig Dispensed Refills Start Date End Da te doxycycline (VIBRA-TABS) 100 mg tablet Take 1 Tab by mouth 2 times daily. 28 Tab 0 12/25/2011 01/07/2012 HYDROmorphone (DILAUDID) 8 mg tablet Take 1 Tab by mouth 4 times daily as needed for Pain. No more than 3.5 - 4 TABS per day 56 Each 0 12/28/2011 01/09/2012 trazodone (DESYREL) 100 mg tabletIndications:Chronic pain syndrome Take 1.5 Tabs by mouth at bedtime. 90 Tab 3 12/25/2011 08/12/2012 citalopram (CELEXA) 40 mg tablet Take 1 Tab by mouth daily. 90 Tab 3 12/25/2011 04/30/2012 documented in this encounter Progress Notes * Tamara Neal MD - 12/26/2011 0916 EDT Subjective: Patient ID: Guzman Jean is an 36 y.o. female. Chief Complaint Patient presents with ??? Hip Pain follow up HPI Here for f/u chronic LBP and left hip pain as well as depression At last visit we increased Celexa to 30 mg daily No real benefit Has been at 40 mg in past and feels this is necessary Still living with her parents and seems to be going well Had suicide gesture with insulin few mos back No self harm thoughts currently Also has questions about Trazodone, we increased to 150 mg QHS at last visit as well but bottle has2 sets instructions Hip pain about the same Has re-scheduled hip surgery for 01/10. Hopefully will be off workers comp for shoulder injury by then Has had FCE and medical endpoint assessment recently, awaiting final RECS from this Still using Dilaudid 8 mg 3.5 - 4 TABS daily Needs another Rx for 12/27 Patient Active Problem List Diagnoses ??? Routine [...] TABS per day 56 Each 0 ??? metformin (GLUCOPHAGE) 1,000 mg tablet [...] fluticasone (FLONASE) 50 mcg/Actuation nasal spray 1 Benavides by Nasal route daily. 1 Bottle 2 [...] No ROS - See HPI Objective: BP 138/80 Pulse 100 Temp(Src) 37.4 ??C (99.3 ??F) (Oral) Resp 16 Wt 87.998 kg (194 lb) Physical Exam Constitutional: She appears well-developed and well-nourished. No distress. HENT: Head: Normocephalic and atraumatic. Eyes: Conjunctivae are normal. No scleral icterus. Mood - good, well groomed Assessment: Plan: Guzman was seen today for hip pain. Diagnoses and associated orders for this visit: Chronic pain syndrome dueLeft hip pain and Lbp (low back pain) Has re-scheduled diagnostic and hopefully therapeutic left hip arthroscopy in mid-Dec For now continue Dilaudid 8 mg 3-4 TABS daily (has mostly been using 3.5-4 TABS) Rx dated for 12/27 and should have enough through pre-op evaluation in next 3 weeks - trazodone (DESYREL) 100 mg tablet; Take 1.5 Tabs by mouth at bedtime. Sinusitis, acute Has had symptoms for > 1 mos, also has diabetes Need to treat as bacterial at this point Doxycycline 100 mg BID for 14 days Continue Neti Pot saline sinus irrigation Depression - not adequately controlled Will increase Celexa back up to 40 mg daily Other Orders - citalopram (CELEXA) 40 mg tablet; Take 1 Tab by mouth daily. - HYDROmorphone (DILAUDID) 8 mg tablet; Take 1 Tab by mouth 4 times daily as needed for Pain. No more than 3.5 - 4 TABS per day - doxycycline (VIBRA-TABS) 100 mg tablet; Take 1 Tab by mouth 2 times daily. Return if symptoms worsen or fail to improve, for pre-op eval for 01/10 surgery. documented in this encounter Plan of Treatment Not on file documented as of this encounter Visit Diagnoses Diagnosis Left hip pain Pain in joint, pelvic region and thigh LBP (low back pain) Lumbago Chronic pain syndrome Sinusitis, acute Acute sinusitis, unspecified documented in this encounter Discontinued Medications Medication Sig Discontinue Reason Start Date End Da te citalopram (CELEXA) 20 mg tablet Take 1.5 Tabs by mouth daily. Reorder 11/26/2011 12/25/2011 trazodone (DESYREL) 100 mg tabletIndications:Chroni c pain syndrome Take 1.5 Tabs by mouth at bedtime. Take half to one tablet at bedtime Reorder 10/17/2011 12/25/2011 HYDROmorphone (DILAUDID) 8 mg tablet Take 1 Tab by mouth 4 times daily as needed for Pain. No more than 3.5 - 4 TABS per day Reorder 12/18/2011 12/25/2011 documented as of this encounter Care Teams Commercial Producer Relationship Specialty Start Date End Date Tamara Neal MD [address] [place] [phone] PCP - General 09/13/08 03/18/13 documented as of this encounter
--- OUTSIDE RECORDS SUMMARY | 2024-02-14 15:26 | XMS_ITS | Encounter Summary ---
Author Organization [facility] Address [address] [place] [address] Care Team Providers Care Book Editor Name Role Phone Tamara Neal MD Primary Care Provider + Reason for Visit * Reason Onset Date Comments Appointment Related 10/23/2011 Encounter Details Date Type Department Care Team (Late st Contact Info) Description 10/23/2011 Telephone [facility] Rehabilitation Therapy - Medical Office Building [address] [place] [address] Stephanie Elizabeth, PT [address] [place] [address] Appointment Related Social History Tobacco Use Types [...] * Telephone Encounter - Liseth Hankins - 10/23/2011 0813 EDT [facility] ([facility]) [address] [facility] [address] Phone: [phone] Fax: [phone] The patient called to cancel today's appointment due to overslept. Liseth Hankins 10/23/2011 8:13 documented in this encounter Plan of Treatment Not on file documented as of this encounter Visit Diagnoses Not on filedocumented in this encounter Care Teams Book Editor Relationship Specialty Start Date End Date Tamara Neal MD [address] [place] [phone] PCP - General 09/13/08 03/18/13 documented as of this encounter
--- OUTSIDE RECORDS SUMMARY | 2024-02-14 15:26 | XMS_ITS | Encounter Summary ---
Author Organization [facility] Address [address] [place] [address] Care Team Providers Care Painter Mirror Name Role Phone Tamara Neal MD Primary Care Provider + Reason for Visit * Reason Comments Hip Pain Encounter Details Date Type Department Care Team (Late st Contact Info) Description 11/26/2011 11:15 EDT Office Visit [facility] Family Medicine [address] [address] Tamara Neal MD [address] [place] [phone] Left hip pain; Type 2 diabetes mellitus without (mention of) complications; Sinusitis, acute Social History Tobacco Use Types [...] Reading Time Taken Comments Blood Pressure 140/82 11/26/2011 1136 EDT Pulse 88 11/26/2011 1136 EDT Temperature 37.1 ??C (98.7 ??F) 11/26/2011 1136 EDT Respiratory Rate 16 11/26/2011 1136 EDT Oxygen Saturation - - Inhaled Oxygen Concentration - - Weight 86.2 kg (190 lb) 11/26/2011 1136 EDT Height - - Body Mass Index 37.11 10/11/2011 1504 EDT documented in this encounter Patient Instructions * Patient Instructions* Tamara Neal MD - 11/26/2011 11:59 EDT Images from the original note were not included. [facility] Patient Instructions Saline Nasal Washes: After Your Visit Your Care Instructions Saline nasal washes help keep the nasal passages open by washing out thick or dried mucus. This simple remedy can help relieve symptoms of allergies, sinusitis, and colds. It also can make the nose feel more comfortable by keeping the mucous membranes moist. You may notice a little burning sensation in your nose the first few times you use the solution, but this usually gets better in a few days. Follow-up care is a penaloza part of your treatment and safety. Be sure to make and go to all appointments, and call your doctor if you are having problems. It???s also a good idea to know your test results and keep a list of the medicines you take. How can you care for yourself at home? ?? You can buy premixed saline solution in a squeeze bottle or other sinus rinse products at a drugstore. Read and follow the instructions on the label. ?? You also can make your own saline solution. (Store it at room temperature in a clean container with a tight cover.) Mix: ? teaspoon salt. ?? 1 cup water (at room temperature). ? teaspoon baking soda. ?? If you use a homemade solution, pour a small amount into a clean bowl. Using a rubber bulb syringe, squeeze the syringe and place the tip in the salt water. Pull a small amount of the salt water into the syringe by relaxing your hand. ?? Sit down with your head tilted slightly back. Do not lie down. Put the tip of the bulb syringe or the squeeze bottle a little way into one of your nostrils. Gently squirt a small amount (about 1 teaspoon) into the nostril. Repeat with the other nostril. Some sneezing and gagging are normal at first. ?? Gently blow your nose. ?? Wipe the syringe or bottle tip clean after each use. ?? Repeat this 2 or 3 times a day. ?? Use nasal washes gently if you have nosebleeds often. When should you call for help? Watch closely for changes in your health, and be sure to contact your doctor if: ?? You often get nosebleeds. ?? You have problems doing the nasal washes. Where can you learn more? Go to www.PriceAdvice.net/fahc Enter B784 in the search box to learn more about Saline Nasal Washes: After Your Visit. ?? [phone] [employer]. Care instructions adapted under license by [facility], [facility]. This care instruction is for use with your licensed healthcare professional. If you have questions about a medical condition or this instruction, always ask your healthcare professional. [employer] disclaims any warranty or liability for your use of this information. Content Version: 9.2.577516; Last Revised: January 09, 2011 documented in this encounter Ordered Prescriptions Prescription Sig Dispensed Refills Start Date End Da te citalopram (CELEXA) 20 mg tablet Take 1.5 Tabs by mouth daily. 90 Tab 3 11/26/2011 12/25/2011 HYDROmorphone (DILAUDID) 8 mg tablet Take 1 Tab by mouth 3 times daily. No More than 3- 3.5 TABS per day 48 Each 0 11/26/2011 12/03/2011 metformin (GLUCOPHAGE) 1,000 mg tablet Take 1 Tab by mouth 2 times daily. 60 Tab 11 11/26/2011 04/30/2012 documented in this encounter Progress Notes * Awilda Fang RN - 11/26/2011 1215 EDT Venipuncture performed for A1C Per orders of Dr. Neal Diagnosis of 250.00 Venipuncture performed without incident. * Tamara Neal MD - 11/26/2011 1206 EDT S: here to f/u on hip pain and diabetes checked in 15 min AFTER scheduled appt so was abbreviated visit Had to re-schedule therapeutic and diagnositic hip surg due to active WC case for shoulder issues Has re-scheduled hip surg for Dec and hopefully by then WC case will be at med endpoint/closed See previous TC noted in [facility] regarding this Still using Dilaudid 8 mg 4 tabs daily Agrees to try 3-3.5 TABS daily Feels might have sinus infection TIDWELL and sinus pressure for 3-4 days No fevers, jaw or tooth pain Congested but nothing coming out No ear pain or sore throat No cough or SOB Also for diabetes On Metformin 1000 mg BIDm needs RF and Lantus and ACTOS Last HgA1C 7.2 in June Last fasting labs in June as well Mood a problem, more anxiety Wonders about increasing Celexa, which she has been on 20 mg daily O: BP 140/82 Pulse 88 Temp(Src) 37.1 ??C (98.7 ??F) (Oral) Resp 16 Wt 86.183 kg (190 lb) Gen - well INAD, sounds congested HEENT - ATNC. No sinus TTP Conjunctivae non-injected TMs - edward OP - MMM, no erythema Neck - supple, no enlarged LN A/P Sinusitis - likely viral at this point con't Flonase and Claritin Good hydration Saline sinus irtrigation Hip pain - await surgery in Dec Continue to wean down on narcotics 2 week supply Dilaudid 8 mg 3- 3.5 TABS daily, #48 given Should call in 1 week (Sat- next week) to let me know how she is doing on this dose Will need another 2 week supply Rx to be given AFTER she calls Diabetes - continue current management HgA1C today Anxiety - increase Celexa to 30 mg daily but need to discuss more at next visit in 1 mos documented in this encounter Plan of Treatment Not on file documented as of this encounter Procedures Procedure Name Priority Date/Time Associated Diagnosis Comments HEMOGLOBIN A1C Routine 11/26/2011 12:00 EDT Type 2 diabetes mellitus without (mention of) complications documented in this encounter Results * HEMOGLOBIN A1C (11/26/2011 12:00 EDT) Hemoglobin A1C 6.9 % [facility] Comment: Reference Range: <5.7% Normal 5.7-6.4% Increased risk for diabetes =>6.5% Diagnostic for diabetes (if confirmed) The A1c goal for non adults in general is <7%. The A1c goal for selected patients may be significantly lower than 7% if this can be achieved without significant hypoglycemia or other adverse effects of treatment. Est Avg Glucose 151 mg/dl [facility] Comment: eAG represents the A1c result expressed as average glucose in mg/dl. Blood specimen (specimen) 11/26/2011 12:00 EDT 11/26/2011 18:13 EDT Tamara Neal MD CHEMISTRY & BLOO D GAS ORDERABLES [facility] [address] [place] [address] documented in this encounter Visit Diagnoses Diagnosis Left hip pain Pain in joint, pelvic region and thigh Type 2 diabetes mellitus without (mention of) complications Type II or unspecified type diabetes mellitus without mention of complication, not stated as uncontrolled Sinusitis, acute Acute sinusitis, unspecified documented in this encounter Discontinued Medications Medication Sig Discontinue Reason Start Date End Da te metformin (GLUCOPHAGE) 1,000 mg tablet Take 1 Tab by mouth 2 times daily. Reorder 11/07/2011 11/26/2011 HYDROmorphone (DILAUDID) 8 mg tablet Take 1 Tab by mouth 4 times daily. No More than 4 tabs daily Reorder 11/14/2011 11/26/2011 citalopram (CELEXA) 20 mg tablet Take 1 Tab by mouth daily. Reorder 06/12/2011 11/26/2011 documented as of this encounter Care Teams Painter Mirror Relationship Specialty Start Date End Date Tamara Neal MD [address] [place] [phone] PCP - General 09/13/08 03/18/13 documented as of this encounter
--- OUTSIDE RECORDS SUMMARY | 2024-02-14 15:26 | XMS_ITS | Encounter Summary ---
Author Organization [facility] Address [address] [place] [address] Care Team Providers Care Film Or Videotape Editor Name Role Phone Tamara Neal MD Primary Care Provider + Reason for Referral * Consult (Routine/Next Available) - Closed Specialty Diagnoses / Procedures Referred By Savannah ashton Referred To Contact Psychology Diagnoses Depression Tamara Neal MD [address] [place] [phone] Referral ID Status Reason Start Date Expiration Date V isits Requested Visits Authorized [id number] Closed Specialty Services Required 10/04/2011 1 1 Scheduling Instructions Patient already has appointment with Marina Soni on 10/10/11 at 2:00. Question Answer Reason for Request: depression Reason for Visit * Reason Onset Date Comments Referral Request 10/04/2011 Encounter Details Date Type Department Care Team (Late st Contact Info) Description 10/04/2011 Telephone [facility] [address] [address] Tamara Neal MD [address] [place] [phone] Referral Request Social History Tobacco Use Types Packs/Day Years [...] * Telephone Encounter - Mikki Peñaloza - 10/04/2011 1109 EDT Pt went to her physical therapy appointment today and discussed her need to see a counselor, they scheduled pt to see psychologist Sandra Soni at [place] [facility] for depression and would like referralplaced. documented in this encounter Plan of Treatment Scheduled Referrals Name Type Priority Associated Diagnoses Order Schedule AMB CONSULT PSYCHOLOGY Outpatient Referral Routine Depression Ordered: 10/04/2011 documented as of this encounter Visit Diagnoses Diagnosis Depression- Primary Depressive disorder, not elsewhere classified documented in this encounter Care Teams Film Or Videotape Editor Relationship Specialty Start Date End Date Tamara Neal MD [address] [place] [phone] PCP - General 09/13/08 03/18/13 documented as of this encounter
--- OUTSIDE RECORDS SUMMARY | 2024-02-14 15:26 | XMS_ITS | Encounter Summary ---
Author Organization [facility] Address [address] [place] [address] Care Team Providers Care Orientation And Mobility Specialist Name Role Phone Tamara Neal MD Primary Care Provider + Reason for Visit * Reason Comments Cough f/u Encounter Details Date Type Department Care Team (Late st Contact Info) Description 01/09/2012 12:45 EDT Office Visit [facility] [address] [id number] Tamara Neal MD [address] [place] [phone] Bronchitis, acute (Primary Dx) Discharge Disposition: Auto Discharge Social [...] Sign Reading Time Taken Comments Blood Pressure 108/60 01/09/2012 1303 EDT Pulse 96 01/09/2012 1303 EDT Temperature 36.8 ??C (98.2 ??F) 01/09/2012 1303 EDT Respiratory Rate - - Oxygen Saturation - - Inhaled Oxygen Concentration - - Weight 89.4 kg (197 lb) 01/09/2012 1303 EDT Height - - Body Mass Index 36.92 01/07/2012 1035 EDT documented in this encounter Ordered Prescriptions Prescription Sig Dispensed Refills Start Date End Da te HYDROmorphone (DILAUDID) 8 mg tablet Take 1 Tab by mouth 4 times daily as needed for Pain. No more than 3.5 - 4 TABS per day 56 Each 0 01/25/2012 02/12/2012 HYDROmorphone (DILAUDID) 8 mg tablet Take 1 Tab by mouth 4 times daily as needed for Pain. No more than 3.5 - 4 TABS per day 56 Each 0 01/11/2012 01/09/2012 documented in this encounter Discharge Disposition Disposition Code Departure Means Destination Auto Discharge documented in this encounter Progress Notes * Tamara Neal MD - 01/09/2012 1341 EDT S: here to f/u on cough and wheeze Was scheduled for hip arthroscopy 01/[address] Moffett Had pre-op medical evaluation with Dr. Naidu on 01/06. Was having URI symptoms, subjective fevers, cough and wheeze Was started on Albuterol and Azithromycin. Was told needed to be re-evaluated today to determine if ok to proceed with scheduled surgery A bit better. No fevers or sweats since starting ABX Still coughing and with some SOB Sugars are still just a bit elevated (has DM-II) Sinuses still congested and painful. Doxycycline was not helpful (earlier this summer) Azithromycin has helped a bit Of note, she was called by Dr. Moffett's office yesterday and told [place] and so he was not available for her scheduled procedure She was not given a replacement date and has questions about this She is really hoping will be able to have it re-scheduled MARILU (was willing to see another surgeon) Is on Dilaudid 8 mg 4 times daily chronically and the plan was hopefully to be able to wean off after recovery (as long surgery is therapeutic and helps) I did call and leave message for Aleah to call me back so I could discuss O: BP 108/60 Pulse 96 Temp(Src) 36.8 ??C (98.2 ??F) (Tympanic) Wt 89.359 kg (197 lb) gen - well INAD HEENT - ATNC. Mild maxillary sinus TTP Conjunctivae non-injected OP - MMM, no erythema or exudate Neck - supple, no enlarged LN LUNGS - essentially CTAB. Right posterior lower lung field with intermittent popping wheeze A/P Bronchitis - viral vs atypical REC complete ZPack Continue Delsym and Albuterol prn Surgery has been postponed for other reasons, which is for the best due to bronchitis 2 new Dilaudid 8 mg Rx given (#56 each) F/u 4 weeks or sooner prn documented in this encounter Plan of Treatment Not on file documented as of this encounter Visit Diagnoses Diagnosis Bronchitis, acute- Primary Acute bronchitis documented in this encounter Discontinued Medications Medication Sig Discontinue Reason Start Date End Da te HYDROmorphone (DILAUDID) 8 mg tablet Take 1 Tab by mouth 4 times daily as needed for Pain. No more than 3.5 - 4 TABS per day Reorder 12/28/2011 01/09/2012 HYDROmorphone (DILAUDID) 8 mg tablet Take 1 Tab by mouth 4 times daily as needed for Pain. No more than 3.5 - 4 TABS per day Reorder 01/11/2012 01/09/2012 documented as of this encounter Care Teams Orientation And Mobility Specialist Relationship Specialty Start Date End Date Tamara Neal MD [address] [place] [phone] PCP - General 09/13/08 03/18/13 documented as of this encounter
--- OUTSIDE RECORDS SUMMARY | 2024-02-14 15:26 | XMS_ITS | Encounter Summary ---
Author Organization [facility] Address [address] [place] [address] Care Team Providers Care Loom Cleaner Name Role Phone Tamara Neal MD Primary Care Provider + Reason for Visit * Reason Onset Date Comments Procedure 01/30/2012 Encounter Details Date Type Department Care Team (Latest Contact Info) Description 01/30/2012 Pre-Procedure Orders Encounter [facility] Sports Medicine Program [place] [address] [place] [address] Cindy Ferrera, RN Pain in joint, pelvic region and thigh Social History Tobacco Use Types Packs/Day Years [...] thigh documented in this encounter Care Teams Loom Cleaner Relationship Specialty Start Date End Date Tamara Neal MD [address] [place] [phone] PCP - General 09/13/08 03/18/13 documented as of this encounter
--- OUTSIDE RECORDS SUMMARY | 2024-02-14 15:26 | XMS_ITS | Encounter Summary ---
Author Organization [facility] Address [address] [place] [address] Care Team Providers Care Director Business Development Name Role Phone Tamara Neal MD Primary Care Provider + Reason for Visit * Reason Onset Date Comments Appointment Related 12/26/2011 Encounter Details Date Type Department Care Team (Late st Contact Info) Description 12/26/2011 Telephone [facility] Rehabilitation Therapy - Medical Office Building [address] [place] [phone] Marina Soni, PhD Appointment Related Social History Tobacco Use Types [...] encounter Miscellaneous Notes * Telephone Encounter - Suly Wilkins - 02/04/2012 0945 EDT We still have not heard back from this patient to schedule a follow up appointment with Marina Soni Phd. This patient does not have any phone numbers in [employer] to call her on. I have already one one letter out to her. * Telephone Encounter - Suly Wilkins - 12/26/2011 1420 EDT I have mailed out a letter to this patient to see if she wants to schedule any appointments with Marina Soni Phd. documented in this encounter Plan of Treatment Not on file documented as of this encounter Visit Diagnoses Not on filedocumented in this encounter Care Teams Director Business Development Relationship Specialty Start Date End Date Tamara Neal MD [address] [place] [phone] PCP - General 09/13/08 03/18/13 documented as of this encounter
--- OUTSIDE RECORDS SUMMARY | 2024-02-14 15:26 | XMS_ITS | Encounter Summary ---
Author Organization [facility] Address [address] [place] [address] Care Team Providers Care Line Driver Name Role Phone Tamara Neal MD Primary Care Provider + Reason for Visit * Reason Onset Date Comments Other 01/09/2012 Surgery postpone d Encounter Details Date Type Department Care Team (Late st Contact Info) Description 01/09/2012 Telephone [facility] Sports Medicine Program [place] [address] Aleah Mak, FURNITURE POLISHER [address] [place] [address] Other (Surgery postponed) Social History Tobacco Use Types Packs/Day Years [...] encounter Miscellaneous Notes * Telephone Encounter - Aleah Mak - 01/09/2012 1619 EDT Patient notified that Dr. Moffett has been called away due to a family emergency and her hip surgeryhas been postponed. She is aware we will call with a new date when we know his availability. documented in this encounter Plan of Treatment Not on file documented as of this encounter Visit Diagnoses Not on filedocumented in this encounter Care Teams Line Driver Relationship Specialty Start Date End Date Tamara Neal MD [address] [place] [phone] PCP - General 09/13/08 03/18/13 documented as of this encounter
--- OUTSIDE RECORDS SUMMARY | 2024-02-14 15:26 | XMS_ITS | Encounter Summary ---
Author Organization [facility] Address [address] [place] [address] Care Team Providers Care Oracle Ebs Consultant Name Role Phone Tamara Neal MD Primary Care Provider + Reason for Visit * Reason Onset Date Comments Appointment Related 10/05/2011 Encounter Details Date Type Department Care Team (Late st Contact Info) Description 10/05/2011 Telephone [facility] Rehabilitation Therapy - Medical Office Building [address] [place] [phone] Naima Rodney, PT Appointment Related Social History [...] * Telephone Encounter - Suly Wilkins - 10/05/2011 0938 EDT We received a call from the W/C child support case officer, Sabine at [facility]. She has requested the most recent notes on this patient. The last note she has received was 09/18/11. I have faxed her the notes on 09/27/11 and 10/04/11. documented in this encounter Plan of Treatment Not on file documented as of this encounter Visit Diagnoses Not on filedocumented in this encounter Care Teams Oracle Ebs Consultant Relationship Specialty Start Date End Date Tamara Neal MD [address] [place] [phone] PCP - General 09/13/08 03/18/13 documented as of this encounter
--- OUTSIDE RECORDS SUMMARY | 2024-02-14 15:26 | XMS_ITS | Encounter Summary ---
Author Organization [facility] Address [address] [place] [address] Care Team Providers Care Perforator Operator Name Role Phone Tamara Neal MD Primary Care Provider + Reason for Referral * Consult, Test and Treat (Routine/Next Available) - Closed Specialty Diagnoses / Procedures Referred By Contrachell ashton Referred To Contact Rehab Therapies Diagnoses Neck pain Shoulder pain Marcin Chacko PA-C [address] [place] [phone] Referral ID Status Reason Start Date Expiration Date V isits Requested Visits Authorized [id number] Closed Specialty Services Required 10/11/2011 1 1 Question Answer Reason for Request: neck and left shoulder pain Comments Return to work evaluation and recommendations as to whether extending a light duty restriction would be helpful in this case Reason for Visit * Reason Comments Neck Pain Shoulder Pain left Encounter Details Date Type Department Care Team (Late st Contact Info) Description 10/11/2011 15:00 EDT Office Visit [facility] - [address] [place] [address] Marcin Chacko PA-C [address] [place] [phone] Neck pain; Shoulder pain Discharge Disposition: Auto Discharge Social History [...] - - Weight 81.6 kg (180 lb) 10/11/2011 1504 EDT Height 152.4 cm (5') 10/11/2011 1504 EDT Body Mass Index 35.15 10/11/2011 1504 EDT documented in this encounter Discharge Disposition Disposition Code Departure Means Destination Auto Discharge documented in this encounter Progress Notes * Marcin Chacko PA - 10/11/2011 1609 EDT Guzman Jean is being seen as a consultation from Dr. Esteban. Chief Complaint Patient presents with ??? Neck Pain ??? Shoulder Pain left Diagnoses of Neck pain and Shoulder pain were pertinent to this visit. 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 Her symptoms began immediately. Her symptoms are constant and radiates to the left trapezius, into the shoulder and into the deltoid. No upper extremity symptoms. She does have some dysesthesiasin the 4th and 5th fingers on the left. She has associated headaches. Her discomfort is exacerbatedby turning her head, crossing her left arm over her chest, lying on her left side and any arm movement, while she finds some relief with lying on her right side, using a TENS unit and ice. She has see n a physical therapist. She underwent an injection of the shoulder at Dr Caldwell's office and received a couple days of symptom relief. Currently states 50% of her discomfort is focused in the neck, 50% shoulder with discomfort rating of mild to moderate. HPI Patient Active Problem List Diagnoses ??? Routine [...] Dr. Mendez ??? section 1998,2007 times 2 History Substance Use Topics ??? Smoking status: [...] 4 tabs daily 56 Each 0 ??? gabapentin (NEURONTIN) 400 mg capsule Take 400 mg by mouth 2 times daily. ??? simvastatin (ZOCOR) 20 mg tablet Take 1 Tab by mouth every evening. 90 Tab 3 ??? trazodone (DESYREL) 100 [...] fluticasone (FLONASE) 50 mcg/Actuation nasal spray 1 [place] by Nasal route daily. 1 Bottle 2 ??? levonorgestrel (MIRENA) 20 mcg/24 hr IUD 1 Each by Intrauterine route once. 08/26/2008 ??? ibuprofen (MOTRIN) 200 mg tablet Take 3 Tabs by mouth every 6 hours as needed. ??? acetaminophen (TYLENOL) 500 mg tablet Take 2 Tabs by mouth every 4 hours as needed. No Known Allergies Review of Systems Constitutional: Positive for activity change. HENT: Positive for neck pain and neck stiffness. Eyes: Negative for visual disturbance. Respiratory: Negative for wheezing. Cardiovascular: Negative for palpitations. Gastrointestinal: Negative for constipation. Genitourinary: Negative for difficulty urinating. Musculoskeletal: Positive for back pain. Skin: Negative for color change. Neurological: Positive for numbness. Psychiatric/Behavioral: The patient is not nervous/anxious. Physical Exam Constitutional: She is oriented to person, place, and time. She appears well- developed and well-nourished. No distress. Eyes: EOM are normal. Cardiovascular: Normal rate. Pulmonary/Chest: Effort normal. Neurological: She is alert and oriented to person, place, and time. Skin: Skin is warm and dry. Psychiatric: She has a normal mood and affect. Back Exam Comments: [Nikita lesions rashes or hair donnell, no Palp tenderness decreased ROM with rotation left and right by 20% spurlings maneuver is negative bilaterally upper ext strength left Deltoid, triceps, biceps, wrist extensors 4/5 with breakaway strength, soft touch diminished left deltoid and humerus,reflexes2 at the biceps otherwise 1 radial pulse 2 soto's sign neg tinnel sign neg ulnar compression test + on the left Neurologic Exam Mental Status [oriented to person, place, and time Cranial Nerves CN III, IV, Extraocular motions are normal. The prior workup of the patient includes: The patient's cervical MRI reveals mild disk degenerationof the C-spine, no erica herniations or nerve root impingements that account for her symptoms. She had an MRI of the shoulder on the left that did reveal mild tendinosis of the supraspinatus andinfraspinatus without clear tear and some subacromial bursitis. EMG nerve conduction study performed by Dr Lau is negative for brachial plexopathy or cervical radiculopathy, although he thought she may have a mild brachial stretch injury. On his exam he felt she still did have signs of rotator cuff tendinitis. Assessment Musculoskeletal neck pain, possibly referred from the shoulder, shoulder tendinopathy as described on her MRI and Dr Caldwell's notes. She had little relief with a subacromial bursal injection. I do notthink there is much utility in following in Dr Caldwell's office. I would suggest also continuing physical therapy. From a spine perspective, she has had no limitations, although based on her discomfort, she is on a light duty protocol at work. She is wondering when she could return to work. I suggested undergoing a return to work evaluation with physical therapy to better determine her abilities and possibly gain a recommendation from their perspective as to how long she may have to extend her light duty restriction or could she return to work at her regular duty. 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 1. Was the diagnosis of Ms French currently left upper extremity and neck symptoms? Likely neck pain is musculoskeletal, left upper extremity symptoms related to rotator cuff tendinosis as wellas subacromial bursitis. 2. Do you recommend any additional diagnostic testing? No, other than a return to work eval by physical therapy. 3. Were Ms Hammondss current upper extremity symptoms related to her 06/11/11 injury. Yes. How are they related? Appears that the patient had pulled her left arm, certainly she had a degree of strain of her left shoulder and possibly an irritation of the cervical spine based on the incident. 4. What treatment options do you recommend and for what time frame? I recommend a work assessment through her physical therapist. I recommend continuing her PT, NSAIDs for pain. From a spine perspective, activity as tolerated. From a shoulder perspective, given her tendinopathy, it may take some time for her to return to full duty. From my perspective difficult to determine exactly to what degree. 5. In view of EMG results, should she return to Dr Caldwell for the shoulder treatment? Based on the EMG results, it is not clear that returning to Dr Caldwell's office would be beneficial. After reading his note it is not clear that he could offer her much more from his perspective. 6. What is Ms Jean's current work capacity in regard to the upper extremity and neck injury? I think that would be dependent upon her work analysis through her physical therapist. If you need aclear definition, certainly FCE could be helpful. 7. Is Ms Hammondss leg infection a problem affecting her work capacity, if yes to what extent? Eduar not believe it is. I did an exam of her leg. She does have some mild erythema around her tattoo.There is no purulence, no warmth, no fluctuance, no obvious ongoing infection. It looks like it mayhave had an infection that is healing. This should not limit her work ability. 8. What approximately do you project that Ms Jean will be able to return to work full duty? Icannot describe that at this point, it depends on what her tolerances are. Other Orders Placed This Visit Procedures ??? Ambulatory Consult Physical Therapy Plan: documented in this encounter Plan of Treatment Scheduled Referrals Name Type Priority Associated Diagnoses Orde r Schedule AMB CONSULT PHYSICAL THERAPY Outpatient Referral Routine Neck pain Shoulder pain Ordered: 10/11/2011 documented as of this encounter Visit Diagnoses Diagnosis Neck pain Cervicalgia Shoulder pain Pain in joint, shoulder region documented in this encounter Care Teams Perforator Operator Relationship Specialty Start Date End Date Tamara Neal MD [address] [place] [phone] PCP - General 09/13/08 03/18/13 documented as of this encounter
--- OUTSIDE RECORDS SUMMARY | 2024-02-14 15:26 | XMS_ITS | Encounter Summary ---
Author Organization [facility] Address [address] [place] [address] Care Team Providers Care Block Engraver Name Role Phone Tamara Neal MD Primary Care Provider + Reason for Visit * Reason Onset Date Comments Procedure 08/21/2011 Encounter Details Date Type Department Care Team (Late st Contact Info) Description 08/21/2011 Pre-Procedure Orders Encounter [facility] Sports Medicine Program [place] [address] [place] [address] Cindy Ferrera, RN Social History Tobacco Use Types Packs/Day [...] on filedocumented in this encounter Care Teams Block Engraver Relationship Specialty Start Date End Date Tamara Neal MD [address] [place] [phone] PCP - General 09/13/08 03/18/13 documented as of this encounter
--- OUTSIDE RECORDS SUMMARY | 2024-02-14 15:26 | XMS_ITS | Encounter Summary ---
Author Organization [facility] Address [address] [place] [address] Care Team Providers Care Death Clearance Coordinator Name Role Phone Tamara Neal MD Primary Care Provider + Reason for Visit * Reason Comments Hip Pain Left Encounter Details Date Type Department Care Team (Late st Contact Info) Description 08/20/2011 8:00 EDT Office Visit [facility] Sports Medicine Program - [address] [address] Alberto Moffett MD [address] [place] [phone] Left hip pain; Left thigh pain Social History Tobacco Use Types Packs/Day [...] - - Weight 83.9 kg (185 lb) 08/20/2011 0807 EDT Height 152.4 cm (5') 08/20/2011 0807 EDT Body Mass Index 36.13 08/20/2011 0807 EDT documented in this encounter Patient Instructions * Patient Instructions* Cindy Ferrera RN - 08/21/2011 14:15 EDT Patient Education items provided at today's visit: - Dr. Moffett' things to do sheet with pertinent dates, times, and contact numbers. - Pre-op Physical Packet - Patient Worksheet for pre-op phone call - Pre-op Advice - Dept. Of Anesthesia Consent Form (copy) - Surgery specific post-op information sheet -What to expect as an outpatient surgical patient -[facility] Info -Fasting Instructions CINDY FERRERA RN documented in this encounter Progress Notes * Cindy Ferrera RN - 08/21/2011 1415 EDT Patient Education Topic: preop Method: Handout and Verbal Taught to: Patient Barriers: None Outcomes: verbalized understanding Signature: CINDY FERRERA RN * Alberto Moffett MD - 08/20/2011 1629 EDT This office note has been dictated. * Alberto Moffett MD - 08/20/2011 1255 EDT Sports Medicine Service [facility] [address] [place] [address] PROGRESS/FOLLOWUP NOTE - 08/20/2011 PROBLEM: Left-sided groin pain, left posterior thigh pain. SUBJECTIVE: Guzman returns for followup after her recent left hip joint injection by me on 08/03/11. She states that, about 2 hours after the injection, she noticed 50% relief of her typical pain. The following day, she had no pain. Her pain has since returned. Again, her chief complaint is left groinpain and left buttock pain radiating into the posterior thigh, but not below the knee. She has had a very thorough evaluation of her hip and lumbar spine as documented in [facility]. She underwent electrodiagnostic studies on 02/22/11 which showed no evidence of lumbar radiculopathy. She underwent an MRI of her lumbar spine on 12/25/10 which showed a small left paracentral disk herniation and mild degenerative disk disease. She has been seen by the [facility], specifically Dr Diamond, and it was not felt that she had a surgically correctable lumbar spine problem. She is still taking narcotics regularly. She takes Dilaudid 8 mg 4 times daily. OBJECTIVE: She was not formally examined today. ASSESSMENT AND PLAN: I had a long discussion with Ryan today regarding her problem. I do not have a definitive diagnosis. It does not appear that the lumbar spine as the source of her pain. Based onher response to the injection, it would seem that at least some of her pain is coming from the hip joint, however, I cannot explain why the day after the injection, she still had complete pain reliefbecause the local anesthetic should have worn off by then. The groin pain could be consistent with a labral tear which is what the MRI of her hip demonstrates. However, many asymptomatic patients have evidence of labral tears on MRI, so the presence of a labral tear on MRI does not definitively make the diagnosis. She has chronic pain requiring narcotics. She is not a particularly good operative candidate. Nonetheless, there is some objective evidence that some of her pain may be coming from the hip joint. I have discussed options including watchful waiting, additional physical therapy, repeat corticosteroid injection, body care manager, acupuncture and arthroscopic surgery. I explained to her, in no uncertain terms, that I think the potential for success with arthroscopic surgery is low.She feels like she has no other options and would like to try surgery in the hopes that she can getat least some pain relief. The plan would be to perform a left hip arthroscopy and labral debridement versus repair. Risks were discussed including infection, bleeding, nerve injury, skin numbness, blood clots, medical complications, need for additional surgery, complications from traction, and most importantly incomplete pain relief and incomplete return of function. She will undergo new x-rays of her hip and pelvis today which have never been done. This may alter the treatment pain plan potentially. She will tentatively schedule a date for surgery. I will discuss postoperative narcotic management with her primary care physician, Dr Neal. I will not prescribe her with prolonged narcotics after surgery. Electronically Signed by Alberto Moffett MD 08/21/2011 17:49 Alberto Moffett MD - Alberto Moffett MD - WP Job ID: SM Doc ID: [id number] Ext Doc ID: [id number] cc: Tamara Neal MD documented in this encounter Plan of Treatment Not on file documented as of this encounter Visit Diagnoses Diagnosis Left hip pain Pain in joint, pelvic region and thigh Left thigh pain Pain in limb documented in this encounter Care Teams Death Clearance Coordinator Relationship Specialty Start Date End Date Tamara Neal MD [address] [place] [phone] PCP - General 09/13/08 03/18/13 documented as of this encounter
--- OUTSIDE RECORDS SUMMARY | 2024-02-14 15:26 | XMS_ITS | Encounter Summary ---
Author Organization [facility] Address [address] [place] [address] Care Team Providers Care Nursing Technician Name Role Phone Tamara Neal MD Primary Care Provider + Reason for Visit * Reason Onset Date Comments Appointment Related 10/17/2011 Encounter Details Date Type Department Care Team (Late st Contact Info) Description 10/17/2011 Telephone [facility] Rehabilitation Therapy - Medical Office Building [address] [place] [phone] Marcin Chacko PA-C [address] [place] [phone] Appointment Related Social History Tobacco [...] * Telephone Encounter - Suly Wilkins - 10/17/2011 1530 EDT We have received authorization for the FCE for this patient. The patient is scheduled for 10/26/11 at 8 am. Sabine @ [facility] has been informed of this appointment date and time. * Telephone Encounter - Suly Wilkins - 10/17/2011 0917 EDT I have faxed a letter to Sabine Acuña @ [facility], asking for authorization for a FCE. documented in this encounter Plan of Treatment Not on file documented as of this encounter Visit Diagnoses Not on filedocumented in this encounter Care Teams Nursing Technician Relationship Specialty Start Date End Date Tamara Neal MD [address] [place] [phone] PCP - General 09/13/08 03/18/13 documented as of this encounter
--- OUTSIDE RECORDS SUMMARY | 2024-02-14 15:26 | XMS_ITS | Encounter Summary ---
Author Organization [facility] Address [address] [place] [address] Care Team Providers Care Finishing And Shipping Supervisor Name Role Phone Tamara Neal MD Primary Care Provider + Encounter Details Date Type Department Care Team (Late st Contact Info) Description 08/07/2011 Orders Only [facility] Sports Medicine Program - [address] [address] Haim Caldwell MD [address] [place] [phone] Shoulder pain, left (Primary Dx) Social History Tobacco [...] Procedure Name Priority Date/Time Associated Diagnosis Comments SHOULDER 2 OR MORE VIEWS Routine 08/10/2011 13:04 EDT Shoulder pain, left documented in this encounter Results * SHOULDER 2 OR MORE VIEWS (08/10/2011 13:04 EDT) Anatomical Region Laterality Modality Other 08/10/2011 13:0 4 EDT 08/10/2011 13:27 EDT Narrative 08/10/2011 13:27 EDT SHOULDER 2 OR MORE VIEW ??Aug 10, 2011 01:04:00 PM Clinical History/Comments: 719.41-PAIN IN JOINT, SHOULDER [id number] shoulder pain Comparison: The patient had a left shoulder MR arthrogram on August 07, 2011. Findings: Left shoulder Grashey, acromial arch and axillary views are obtained. No acute fracture seen. The humeral head is located in the scapular glenoid fossa. Mild acromioclavicular degenerative joint disease is evident. The scapular acromion process exhibits a curved type II undersurface morphology. Procedure Note 08/10/2011 SHOULDER 2 OR MORE VIEW Aug 10, 2011 01:04:00 PM Clinical History/Comments: 719.41-PAIN IN JOINT, SHOULDER [id number] shoulder pain Comparison: The patient had a left shoulder MR arthrogram on August 07, 2011. Findings: Left shoulder Grashey, acromial arch and axillary views are obtained. No acute fracture seen. The humeral head is located in the scapular glenoid fossa. Mild acromioclavicular degenerative joint disease is evident. The scapular acromion process exhibits a curved type II undersurface morphology. Haim Caldwell MD IMG DIAGNOSTIC SUE GING ORDERABLES documented in this encounter Visit Diagnoses Diagnosis Shoulder pain, left- Primary Pain in joint, shoulder region documented in this encounter Care Teams Finishing And Shipping Supervisor Relationship Specialty Start Date End Date Tamara Neal MD [address] [place] [phone] PCP - General 09/13/08 03/18/13 documented as of this encounter
--- OUTSIDE RECORDS SUMMARY | 2024-02-14 15:26 | XMS_ITS | Encounter Summary ---
Author Organization [facility] Address [address] [place] [address] Care Team Providers Care Painting Machine Operator Name Role Phone Tamara Neal MD Primary Care Provider + Encounter Details Date Type Department Care Team (Late st Contact Info) Description 09/07/2011 Orders Only [facility] Sports Medicine Program - [address] [address] Haim Caldwell MD [address] [place] [phone] Brachial plexus lesions (Primary Dx) Social History Tobacco Use Types [...] of this encounter Visit Diagnoses Diagnosis Brachial plexus lesions- Primary documented in this encounter Care Teams Painting Machine Operator Relationship Specialty Start Date End Date Tamara Neal MD [address] [place] [phone] PCP - General 09/13/08 03/18/13 documented as of this encounter
--- OUTSIDE RECORDS SUMMARY | 2024-02-14 15:26 | XMS_ITS | Encounter Summary ---
Author Organization [facility] Address [address] [place] [address] Care Team Providers Care Flight Dispatcher Name Role Phone Tamara Neal MD Primary Care Provider + Reason for Visit * Reason Onset Date Comments Results 08/08/2011 Encounter Details Date Type Department Care Team (Late st Contact Info) Description 08/08/2011 Telephone [facility] Family Medicine [address] [phone] Tamara Neal MD [address] [place] [phone] Results Social History Tobacco Use Types Packs/Day [...] encounter Miscellaneous Notes * Telephone Encounter - Awilda Fang RN - 08/08/[address] Esteban ordered the MRI, so patient will need to get the results through his office. * Telephone Encounter - Almita Ponce - 08/08/2011 1237 EDT Patient would like the results and be able to merchandise pickup/receiving associate a copy of them to take them to Dr Esteban who is the ordering doctor. documented in this encounter Plan of Treatment Not on file documented as of this encounter Visit Diagnoses Not on filedocumented in this encounter Care Teams Flight Dispatcher Relationship Specialty Start Date End Date Tamara Neal MD [address] [place] [phone] PCP - General 09/13/08 03/18/13 documented as of this encounter
--- OUTSIDE RECORDS SUMMARY | 2024-02-14 15:26 | XMS_ITS | Encounter Summary ---
Author Organization [facility] Address [address] [place] [address] Care Team Providers Care Fugitive Investigator Name Role Phone Tamara Neal MD Primary Care Provider + Reason for Visit * Reason Onset Date Comments Medications Refill 12/03/2011 Encounter Details Date Type Department Care Team (Late st Contact Info) Description 12/03/2011 Refill [facility] Family Medicine [address] [address] Tamara Neal MD [address] [place] [phone] Medications Refill Social History Tobacco Use Types [...] than 3.5 - 4 TABS per day 50 Each 0 12/18/2011 12/25/2011 HYDROmorphone (DILAUDID) 8 mg tablet Take 1 Tab by mouth 4 times daily as needed for Pain. No more than 3.5 - 4 TABS per day 50 Each 0 12/07/2011 12/03/2011 documented in this encounter Miscellaneous Notes * Telephone Encounter - Awilda Fang RN - 12/03/2011 1351 EDT Left message for patient to call back. * Telephone Encounter - Tamara Neal MD - 12/03/2011 1326 EDT Should have enough until Fri Will give additional #50 TABS for 3.5 - 4 tabs daily starting that date, needs to last for 12-14 days * Telephone Encounter - Kay Alcocer - 12/03/2011 0905 EDT Last refill 11/26/11 Last Visit 11/26/11 Next Visit 12/25/11 Out ??? Guzman states that she was told by Dr. Neal to call the office today and let her know if she willneed refills. Yes she will need refills, states that for the most part she takes 3.5 tabs daily butsome days she does have to take 4 tablets. documented in this encounter Plan of Treatment Not on file documented as of this encounter Visit Diagnoses Not on filedocumented in this encounter Discontinued Medications Medication Sig Discontinue Reason Start Date End Da te HYDROmorphone (DILAUDID) 8 mg tablet Take 1 Tab by mouth 3 times daily. No More than 3- 3.5 TABS per day Reorder 11/26/2011 12/03/2011 HYDROmorphone (DILAUDID) 8 mg tablet Take 1 Tab by mouth 4 times daily as needed for Pain. No more than 3.5 - 4 TABS per day Reorder 12/07/2011 12/03/2011 documented as of this encounter Care Teams Fugitive Investigator Relationship Specialty Start Date End Date Tamara Neal MD [address] [place] [phone] PCP - General 09/13/08 03/18/13 documented as of this encounter
--- OUTSIDE RECORDS SUMMARY | 2024-02-14 15:26 | XMS_ITS | Encounter Summary ---
Author Organization [facility] Address [address] [place] [address] Care Team Providers Care Steel Engraver Name Role Phone Tamara Neal MD Primary Care Provider + Reason for Visit * Reason Onset Date Comments Appointment Related 11/01/2011 Encounter Details Date Type Department Care Team (Late Contact Info) Description 11/01/2011 Telephone [facility] Rehabilitation Therapy - Medical Office Building [address] [place], [place] [phone] Marina Soni, PhD Appointment Related Social History [...] * Telephone Encounter - Suly Wilkins - 11/01/2011 0801 EDT Rehabilitation Therapies MEDICAL OFFICE BUILDING ([facility]) [address] [facility] [address] Phone: [phone] Fax: [phone] The patient called to cancel today's appointment due to illness. Suly Wilkins 11/01/2011 8:01 documented in this encounter Plan of Treatment Not on file documented as of this encounter Visit Diagnoses Not on filedocumented in this encounter Care Teams Steel Engraver Relationship Specialty Start Date End Date Tamara Neal MD [address] [place] [phone] PCP - General 09/13/08 03/18/13 documented as of this encounter
--- OUTSIDE RECORDS SUMMARY | 2024-02-14 15:26 | XMS_ITS | Encounter Summary ---
Author Organization [facility] Address [address] [place] [address] Care Team Providers Care School Bus Mechanic Name Role Phone Taamra Neal MD Primary Care Provider + Reason for Visit * Reason Onset Date Comments Medications Refill 01/25/2012 Encounter Details Date Type Department Care Team (Late st Contact Info) Description 01/25/2012 Refill [facility] Family Medicine [address] [address] Tamara Neal MD [address] [place] [phone] Medications Refill Social History Tobacco Use Types [...] Dispensed Refills Start Date End Da te cyclobenzaprine (FLEXERIL) 10 mg tabletIndications:Chronic pain syndrome Take 1 Tab by mouth 2 times daily as needed for Muscle Spasms. 60 Tab 2 01/25/2012 03/18/2012 documented in this encounter Miscellaneous Notes * Telephone Encounter - Nadine Stewart - 01/25/2012 6371 EDT Name of Medication - cyclobenzapine 10mg 1 tab 2 times daily Last Refill Date - 10/17/11 qty 60 w/2 refills Last Visit Date - 12/25/11 has been seen since this visit Next Visit Date - 02/06/12 Is patient out of medication? unknown documented in this encounter Plan of Treatment Not on file documented as of this encounter Visit Diagnoses Diagnosis Chronic pain syndrome- Primary documented in this encounter Discontinued Medications Medication Sig Discontinue Reason Start Date End Da te cyclobenzaprine (FLEXERIL) 10 mg tabletIndications:Chroni c pain syndrome Take 1 Tab by mouth 2 times daily as needed for Muscle Spasms. Reorder 10/17/2011 01/25/2012 documented as of this encounter Care Teams School Bus Mechanic Relationship Specialty Start Date End Date Tamara Neal MD [address] [place] [phone] PCP - General 09/13/08 03/18/13 documented as of this encounter
--- OUTSIDE RECORDS SUMMARY | 2024-02-14 15:26 | XMS_ITS | Encounter Summary ---
Author Organization [facility] Address [address] [place] [address] Care Team Providers Care Filter Helper Name Role Phone Tamara Neal MD Primary Care Provider + Reason for Visit * Reason Onset Date Comments Appointment Related 08/21/2011 Encounter Details Date Type Department Care Team (Late st Contact Info) Description 08/21/2011 Telephone [facility] Rehabilitation [facility] - [address] [address] Naima Rodney, PT Appointment Related Social History [...] * Telephone Encounter - Liseth Hankins - 08/21/2011 1209 EDT TENS Unit prescription specifying EMPI unit faxed to: Attention: Sabine - Manager Of Care - CHUCKING LATHE OPERATOR FAX: [phone] Case #: [id number] documented in this encounter Plan of Treatment Not on file documented as of this encounter Visit Diagnoses Not on filedocumented in this encounter Care Teams Filter Helper Relationship Specialty Start Date End Date Tamara Neal MD [address] [place] [phone] PCP - General 09/13/08 03/18/13 documented as of this encounter
--- OUTSIDE RECORDS SUMMARY | 2024-02-14 15:26 | XMS_ITS | Encounter Summary ---
Author Organization [facility] Address [address] [place] [address] Care Team Providers Care Missile Control Pilot Name Role Phone Tamara Neal MD Primary Care Provider + Reason for Visit * Reason Onset Date Comments Appointment Related 08/07/2011 Encounter Details Date Type Department Care Team (Late st Contact Info) Description 08/07/2011 Telephone [facility] Sports Medicine Program - [address] [place], [place] [phone] Cindy Ferrera, RN Appointment Related Social History Tobacco Use [...] encounter Miscellaneous Notes * Telephone Encounter - Cindy Ferrera RN - 08/07/2011 1531 EDT Guzman reporting she had relief for approximately 8 hours after receiving a hip injection on 08-03-11.Pain now back at pre injection level. Dr Moffett advised of this. F/U lencoh't scheduled for her to come back to see him to discuss other treatment options. CINDY FERRERA RN documented in this encounter Plan of Treatment Not on file documented as of this encounter Visit Diagnoses Not on filedocumented in this encounter Care Teams Missile Control Pilot Relationship Specialty Start Date End Date Tamara Neal MD [address] [place] [phone] PCP - General 09/13/08 03/18/13 documented as of this encounter
--- OUTSIDE RECORDS SUMMARY | 2024-02-14 15:27 | XMS_ITS | Encounter Summary ---
Author Organization [facility] Address [address] [place] [address] Care Team Providers Care Elementary Instructional Coach Name Role Phone Tamara Neal MD Primary Care Provider + Reason for Visit * Reason Onset Date Comments Hip Pain 08/02/2011 for left hip inj ection Encounter Details Date Type Department Care Team (Late st Contact Info) Description 08/02/2011 Orders Only [facility] Sports Medicine Program - [address] [place], [place] [phone] Aleah Mak, REPAIR OPERATOR [address] [place] [address] Left hip pain (Primary Dx) Social History [...] Procedure Name Priority Date/Time Associated Diagnosis Comments PORT FLUORO UP TO 1 HOUR 08/03/2011 14:21 EDT Left hip pain documented in this encounter Results * PORT FLUORO UP TO 1 HOUR (08/03/2011 14:21 EDT) Anatomical Region Laterality Modality Other 08/03/2011 14:2 1 EDT Narrative 08/03/2011 14:21 EDT Non Reportable Exam Procedure Note 08/03/2011 Non Reportable Exam Alberto Moffett MD IMG FLUOROSCOPY ORDERABLES documented in this encounter Visit Diagnoses Diagnosis Left hip pain- Primary Pain in joint, pelvic region and thigh documented in this encounter Care Teams Elementary Instructional Coach Relationship Specialty Start Date End Date Tamara Neal MD [address] [place] [phone] PCP - General 09/13/08 03/18/13 documented as of this encounter
--- OUTSIDE RECORDS SUMMARY | 2024-02-14 15:27 | XMS_ITS | Encounter Summary ---
Author Organization [facility] Address [address] [place] [address] Care Team Providers Care Precinct Commanding Officer Name Role Phone Tamara Neal MD Primary Care Provider + Encounter Details Date Type Department Care Team (Latest Contact Info) Description 02/23/2011 10:59 EDT - 02/23/2011 23:59 EDT Hospital Encounter [facility] [address] [place] [address] Tamara Neal MD [address] [place] [phone] Discharge Disposition: Home or Self Care Social [...] as needed. 04/27/2014 cyclobenzaprine (FLEXERIL) 10 mg tabletIndications:Chr onic pain syndrome Take 1 Tab by mouth 2 times daily as needed for Muscle Spasms. 60 Tab 2 02/06/2011 06/12/2011 fluticasone (FLONASE) 50 mcg/Actuation nasal sprayIndications:Pelon rgic rhinitis 1 [place] by Nasal route daily. 1 Bottle 2 08/01/2010 09/24/2012 HYDROmorphone (DILAUDID) 8 mg tablet Take 1 Tab by mouth every 4 hours as needed. 70 Each 0 02/20/2011 02/27/2011 ibuprofen (MOTRIN) 200 mg tablet Take 3 Tabs by mouth every 6 hours as needed. 12/31/2013 levonorgestrel (MIRENA) 20 mcg/24 hr IUD 1 Each by Intrauterine route once. 08/26/2008 05/01/2013 metformin (GLUCOPHAGE) 1,000 mg tablet Take 1 Tab by mouth 2 times daily. 180 Tab 3 02/06/2011 11/07/2011 pioglitazone (ACTOS) 30 mg tablet Take 1 Tab by mouth daily. 30 Tab 3 12/12/2010 08/12/2012 trazodone (DESYREL) 100 mg tabletIndications:Chr onic pain syndrome Take 1 Tab by mouth at bedtime. Take half to one tablet at bedtime 90 Tab 4 08/01/2010 08/14/2011 documented as of this encounter Discharge Disposition Disposition Code Departure Means Destination Home or Self Longterm documented in this encounter Plan of Treatment Not on file documented as of this encounter Visit Diagnoses Not on filedocumented in this encounter Care Teams Precinct Commanding Officer Relationship Specialty Start Date End Date Tamara Neal MD [address] [place] [phone] PCP - General 09/13/08 03/18/13 documented as of this encounter
--- OUTSIDE RECORDS SUMMARY | 2024-02-14 15:27 | XMS_ITS | Encounter Summary ---
Author Organization [facility] Address [address] [place] [address] Care Team Providers Care Tube Teller Name Role Phone Tamara Neal MD Primary Care Provider + Reason for Visit * Reason Comments MEDICATION CHECK Facial Pain Pt thinks she has a sinus infection Encounter Details Date Type Department Care Team (Late st Contact Info) Description 11/14/2010 16:30 EDT Office Visit [facility] Medicine [address] [address] Tamara Neal MD [address] [place] [address] [phone] Chronic pain syndrome (Primary Dx); Left hip pain Social History Tobacco Use Types Packs/Day Years Used Date Smoking Tobacco: Former Cigarettes 1 5 0 08/22/2002 - 08/23/2007 Alcohol Use Standard Drinks/Week Comments No 0 (1 standard drink = 0.6 oz pur e alcohol) Sex and Gender Information Value Date Recorded Sex Assigned at Not on file Gender Identity Not on file Sexual Orientation Not on file documented as of this encounter Last Filed Vital Signs Vital Sign Reading Time Taken Comments Blood Pressure 128/76 11/14/2010 1634 EDT Pulse 80 11/14/2010 1634 EDT Temperature 36.7 ??C (98 ??F) 11/14/2010 1634 EDT Respiratory Rate 18 11/14/2010 1634 EDT Oxygen Saturation - - Inhaled Oxygen Concentration - - Weight 90.7 kg (200 lb) 11/14/2010 1634 EDT Height - - Body Mass Index 37.79 11/06/2010 1253 EDT documented in this encounter Ordered Prescriptions Prescription Sig Dispensed Refills Start Date End Da te HYDROmorphone (DILAUDID) 8 mg tablet Take 1 Tab by mouth every 4 hours as needed. 70 Each 0 11/28/2010 12/12/2010 HYDROmorphone (DILAUDID) 8 mg tablet Take 1 Tab by mouth every 4 hours as needed. 70 Each 0 11/14/2010 11/14/2010 cyclobenzaprine (FLEXERIL) 10 mg tabletIndications:Chronic pain syndrome Take 1 Tab by mouth 2 times daily as needed for Muscle Spasms. 60 Tab 2 11/14/2010 02/06/2011 documented in this encounter Progress Notes * Tamara Neal MD - 11/16/2010 0905 EDT S: here to f/u on chronic pain issues, hip and LBP Is also followed by ortho for hip and spine. Was followed by Dr. Coe who had been Rx'ing high dose Dilaudid until early September. He stopped seeing her when interventions (injections) no longer helpful Might need hip arthroscopy in future but need re-eval with Ortho spine to help with sorting out pain distribution issues Still working (Who can stop in this economy) Has been using Dilaudid 8 mg 5 tabs daily as well as Flexeril Also 5-7 days facial /sinus pain w/o fevers, postnasal drip or nasal congestion. No significant ST or headaches O: BP 128/76 Pulse 80 Temp(Src) 36.7 ??C (98 ??F) (Oral) Resp 18 Wt 90.719 kg (200 lb) Gen - well INAD A/P Chronic pain issues from hip and LBP Await ortho spine re-eval Appreciate both ortho teams input Would like to work on weaning down narcotics but feel like need to have more plan in place to achieve this Did not tolerate Neurontin due to dizziness F/u 1 mos or sooner prn documented in this encounter Plan of Treatment Not on file documented as of this encounter Visit Diagnoses Diagnosis Chronic pain syndrome- Primary Left hip pain Pain in joint, pelvic region and thigh documented in this encounter Discontinued Medications Medication Sig Discontinue Reason Start Date End Da te cyclobenzaprine (FLEXERIL) 10 mg tabletIndications:Chroni c pain syndrome Take 1 Tab by mouth 3 times daily as needed for Muscle Spasms. Reorder 08/01/2010 11/14/2010 HYDROmorphone (DILAUDID) 8 mg tablet Take 1 Tab by mouth every 4 hours as needed. Reorder 10/31/2010 11/14/2010 HYDROmorphone (DILAUDID) 8 mg tablet Take 1 Tab by mouth every 4 hours as needed. Reorder 11/14/2010 11/14/2010 documented as of this encounter Care Teams Tube Teller Relationship Specialty Start Date End Date Tamara Neal MD [address] [place] [phone] PCP - General 09/13/08 03/18/13 documented as of this encounter
--- OUTSIDE RECORDS SUMMARY | 2024-02-14 15:27 | XMS_ITS | Encounter Summary ---
Author Organization [facility] Address [address] [place] [address] Care Team Providers Care Lay Out Drafter Name Role Phone Tamara Neal MD Primary Care Provider + Reason for Visit * Reason Onset Date Comments Appointment Related 07/30/2011 Encounter Details Date Type Department Care Team (Late st Contact Info) Description 07/30/2011 Telephone [facility] Rehabilitation Therapy - Medical Office Building [address] [place], [place] [phone] Heena Sin OT Appointment Related Social History Tobacco Use Types [...] * Telephone Encounter - Liseth Hankins - 07/30/2011 0849 EDT [facility] MEDICAL OFFICE [facility]ILDING ([facility]) [address] [facility] [address] Phone: [phone] Fax: [phone] The patient cancelled today's occupational therapy appointment. The patient's physical therapy appointment was cancelled today and patient states she lives too far away to come in for only the Occupational Therapy appointment. Liseth Hankins 07/30/2011 8:49 documented in this encounter Plan of Treatment Not on file documented as of this encounter Visit Diagnoses Not on filedocumented in this encounter Care Teams Lay Out Drafter Relationship Specialty Start Date End Date Tamara Neal MD [address] [place] [phone] PCP - General 09/13/08 03/18/13 documented as of this encounter
--- OUTSIDE RECORDS SUMMARY | 2024-02-14 15:27 | XMS_ITS | Encounter Summary ---
Author Organization [facility] Address [address] [place] [address] Care Team Providers Care Blending Tank Helper Name Role Phone Tamara Neal MD Primary Care Provider + Reason for Visit * Reason Onset Date Comments Back Pain 01/08/2011 Encounter Details Date Type Department Care Team (Late st Contact Info) Description 01/08/2011 Telephone [facility] Spine Program - [address] [place] [address] Marcin Chacko PA-C [facility] [phone] Back Pain Social History Tobacco Use Types Packs/Day [...] encounter Miscellaneous Notes * Telephone Encounter - Marcin Chacko PA - 01/08/2011 1542 EDT I will be speaking with Dr. Diamond on Saturday01/09/11 * Telephone Encounter - Maximus Alexis Jr. - 01/08/2011 1505 EDT Pt called to ask if Mr. Chacko had consulted with one of the surgeons about her case. She can be reached at her home/cell number. documented in this encounter Plan of Treatment Not on file documented as of this encounter Visit Diagnoses Not on filedocumented in this encounter Care Teams Blending Tank Helper Relationship Specialty Start Date End Date Tamara Neal MD [address] [place] [phone] PCP - General 09/13/08 03/18/13 documented as of this encounter
--- OUTSIDE RECORDS SUMMARY | 2024-02-14 15:27 | XMS_ITS | Encounter Summary ---
Author Organization [facility] Address [address] [place] [address] Care Team Providers Care Band Saw Filer Name Role Phone Tamara Neal MD Primary Care Provider + Encounter Details Date Type Department Care Team (Late st Contact Info) Description 07/10/2011 Results Only Imaging [facility] [phone] Haim Esteban, DO [address] [place] [phone] Social History Tobacco Use Types Packs/Day Years [...] Procedure Name Priority Date/Time Associated Diagnosis Comments MR EXTREMITY SHOULDER W CONTRAST 08/07/2011 16:26 EDT documented in this encounter Results * MR EXTREMITY SHOULDER W CONTRAST (08/07/2011 16:26 EDT) Anatomical Region Laterality Modality Other 08/07/2011 16:2 6 EDT 08/08/2011 9:52 EDT Narrative 08/08/2011 9:52 EDT MR EXTREMITY SHOULDER W ??Aug 07, 2011 04:26:00 PM Clinical History/Comments: Cervical pain, left radicular symptoms Comparison: None. Technique: MR imaging of the left shoulder is performed following injection of a dilute gadolinium solution into the glenohumeral joint space with 6 sequences obtained. Please refer to the MRI prescription worksheet for technical details. Findings: Distal supraspinatus and anterior aspect of the infraspinatus shows mild tendinosis. The subscapularis tendon and teres minor tendon are intact without evidence for tendon tear or significant tendinopathy involving these structures. No significant rotator cuff muscle atrophy or fatty infiltration is demonstrated. No glenoid labral tear is evident. The long head of the biceps tendon is intact and appears normally positioned within the bicipital groove. Acromioclavicular joint shows minimal degenerative changes, without significant sized inferior pointing AC joint osteophyte formation. The scapular acromion process as a curved type II undersurface morphology. There are findings of minimal subacromial subdeltoid bursitis evident. No significant glenohumeral degenerative changes are visualized. Impression: 1. No rotator cuff tendon tear is identified. 2. Distal supraspinatus and anterior aspect of the infraspinatus show mild tendinosis. 3. Findings of minimal subacromial subdeltoid bursitis are evident. 4. Minimal acromioclavicular degenerative changes are evident. Procedure Note 08/08/2011 MR EXTREMITY SHOULDER W Aug 07, 2011 04:26:00 PM Clinical History/Comments: Cervical pain, left radicular symptoms Comparison: None. Technique: MR imaging of the left shoulder is performed following injection of a dilute gadolinium solution into the glenohumeral joint space with 6 sequences obtained. Please refer to the MRI prescription worksheet for technical details. Findings: Distal supraspinatus and anterior aspect of the infraspinatus shows mild tendinosis. The subscapularis tendon and teres minor tendon are intact without evidence for tendon tear or significant tendinopathy involving these structures. No significant rotator cuff muscle atrophy or fatty infiltration is demonstrated. No glenoid labral tear is evident. The long head of the biceps tendon is intact and appears normally positioned within the bicipital groove. Acromioclavicular joint shows minimal degenerative changes, without significant sized inferior pointing AC joint osteophyte formation. The scapular acromion process as a curved type II undersurface morphology. There are findings of minimal subacromial subdeltoid bursitis evident. No significant glenohumeral degenerative changes are visualized. Impression: 1. No rotator cuff tendon tear is identified. 2. Distal supraspinatus and anterior aspect of the infraspinatus show mild tendinosis. 3. Findings of minimal subacromial subdeltoid bursitis are evident. 4. Minimal acromioclavicular degenerative changes are evident. Haim Esteban DO IMG MRI ORDERAB LES documented in this encounter Visit Diagnoses Not on filedocumented in this encounter Care Teams Band Saw Filer Relationship Specialty Start Date End Date Tamara Neal MD [address] [place] [phone] PCP - General 09/13/08 03/18/13 documented as of this encounter
--- OUTSIDE RECORDS SUMMARY | 2024-02-14 15:27 | XMS_ITS | Encounter Summary ---
Author Organization [facility] Address [address] [place] [address] Care Team Providers Care Electrical Parts Reconditioner Name Role Phone Tamara Neal MD Primary Care Provider + Reason for Visit * Reason Onset Date Comments Back Pain 02/23/2011 Encounter Details Date Type Department Care Team (Late st Contact Info) Description 02/23/2011 Orders Only [facility] Spine Program - [address] [place] [address] Marcin Diamond MD [address] [facility] [place] [phone] LBP (low back pain) (Primary Dx) Social History Tobacco Use Types [...] Procedure Name Priority Date/Time Associated Diagnosis Comments L SPINE 4 OR MORE VIEWS Routine 02/26/2011 8:28 EDT LBP (low back pain) documented in this encounter Results * L SPINE 4 OR MORE VIEWS (02/26/2011 8:28 EDT) Anatomical Region Laterality Modality Other 02/26/2011 8:28 EDT 02/26/2011 9:26 EDT Narrative 02/26/2011 9:26 EDT LUMBAR SPINE 4 VIEWS February 26, 2011 Indication: Low back pain. Comparison: MRI December 25, 2010 Technique: AP and lateral flexion, neutral and extension views of the lumbar spine were obtained. Findings: Significant scoliotic curvature is not appreciated. No swetha or retrolisthesis is seen in flexion, neutral or extension views. Vertebral body heights are preserved. Disc space heights are relatively well-maintained. Surgical clips are present in the right upper quadrant consistent with prior cholecystectomy. There is an intrauterine device present. Procedure Note 02/26/2011 LUMBAR SPINE 4 VIEWS February 26, 2011 Indication: Low back pain. Comparison: MRI December 25, 2010 Technique: AP and lateral flexion, neutral and extension views of the lumbar spine were obtained. Findings: Significant scoliotic curvature is not appreciated. No swetha or retrolisthesis is seen in flexion, neutral or extension views. Vertebral body heights are preserved. Disc space heights are relatively well-maintained. Surgical clips are present in the right upper quadrant consistent with prior cholecystectomy. There is an intrauterine device present. Marcin Diamond MD IMG DIAGNOSTIC I MAGING ORDERABLES documented in this encounter Visit Diagnoses Diagnosis LBP (low back pain)- Primary Lumbago documented in this encounter Care Teams Electrical Parts Reconditioner Relationship Specialty Start Date End Date Tamara Neal MD [address] [place] [phone] PCP - General 09/13/08 03/18/13 documented as of this encounter
--- OUTSIDE RECORDS SUMMARY | 2024-02-14 15:27 | XMS_ITS | Encounter Summary ---
Author Organization [facility] Address [address] [place] [address] Care Team Providers Care Overhead Line Worker Name Role Phone Tamara Neal MD Primary Care Provider + Encounter Details Date Type Department Care Team (Late st Contact Info) Description 07/10/2011 Results Only Imaging [facility] [phone] Haim Esteban, DO [address] [place] [phone] Social History Tobacco Use Types Packs/Day Years [...] Name Priority Date/Time Associated Diagnosis Comments MR CERVICAL SPINE WO CONTRAST 08/07/2011 17:07 EDT documented in this encounter Results * MR CERVICAL SPINE WO CONTRAST (08/07/2011 17:07 EDT) Anatomical Region Laterality Modality Other 08/07/2011 17:0 7 EDT 08/08/2011 11:57 EDT Narrative 08/08/2011 11:57 EDT MRI CERVICAL SPINE WITHOUT CONTRAST August 07, 2011 Indication: Cervical pain. Left radicular symptoms. Comparison: None available. Technique: Sagittal T1 and T2, axial T2 and sagittal oblique T2 weighted MR images of the cervical spine were obtained. Findings: On the sagittal images, there is a 5 x 10 mm cystic intensity focus located just anterior to the body of C2. There may be contiguity with the C1-C2 joint space suggesting that this may reflect a synovial cyst. Craniocervical and atlantoaxial alignment are anatomic. No swetha or retrolisthesis is identified. Vertebral body heights are preserved. Marrow signal intensity is unremarkable. Disc space heights are relatively well-maintained. C2-C3: No disc herniation or spinal stenosis is noted. C3-C4: There is a tiny central disc protrusion with minimal central spinal narrowing and no cord impingement. C4-C5: There is a tiny shallow right paracentral disc protrusion with minimal central spinal narrowing and no cord impingement. C5-C6: There is a shallow broad-based central disc protrusion with minimal central spinal narrowing and no cord impingement. C6-C7: There is a right paracentral disc protrusion with minimal central spinal narrowing and no cord impingement. C7-T1: No disc herniation or spinal stenosis is noted. Neuroforaminal stenosis is not appreciated. The cervical cord is normal in caliber and signal. Impression: 1. Shallow disc protrusions at C3-C4, C4-C5, C5-C6 and C6-C7. These all produce minimal central spinal narrowing and no associated cord impingement. 2. No significant neuroforaminal stenosis appreciated. 3. Possible synovial cyst arising from the atlantoaxial joint. Procedure Note 08/08/2011 MRI CERVICAL SPINE WITHOUT CONTRAST August 07, 2011 Indication: Cervical pain. Left radicular symptoms. Comparison: None available. Technique: Sagittal T1 and T2, axial T2 and sagittal oblique T2 weighted MR images of the cervical spine were obtained. Findings: On the sagittal images, there is a 5 x 10 mm cystic intensity focus located just anterior to the body of C2. There may be contiguity with the C1-C2 joint space suggesting that this may reflect a synovial cyst. Craniocervical and atlantoaxial alignment are anatomic. No swetha or retrolisthesis is identified. Vertebral body heights are preserved. Marrow signal intensity is unremarkable. Disc space heights are relatively well-maintained. C2-C3: No disc herniation or spinal stenosis is noted. C3-C4: There is a tiny central disc protrusion with minimal central spinal narrowing and no cord impingement. C4-C5: There is a tiny shallow right paracentral disc protrusion with minimal central spinal narrowing and no cord impingement. C5-C6: There is a shallow broad-based central disc protrusion with minimal central spinal narrowing and no cord impingement. C6-C7: There is a right paracentral disc protrusion with minimal central spinal narrowing and no cord impingement. C7-T1: No disc herniation or spinal stenosis is noted. Neuroforaminal stenosis is not appreciated. The cervical cord is normal in caliber and signal. Impression: 1. Shallow disc protrusions at C3-C4, C4-C5, C5-C6 and C6-C7. These all produce minimal central spinal narrowing and no associated cord impingement. 2. No significant neuroforaminal stenosis appreciated. 3. Possible synovial cyst arising from the atlantoaxial joint. Haim Esteban DO IMG MRI ORDERAB LES documented in this encounter Visit Diagnoses Not on filedocumented in this encounter Care Teams Overhead Line Worker Relationship Specialty Start Date End Date Tamara Neal MD [address] [place] [phone] PCP - General 09/13/08 03/18/13 documented as of this encounter
--- OUTSIDE RECORDS SUMMARY | 2024-02-14 15:27 | XMS_ITS | Encounter Summary ---
Author Organization [facility] Address [address] [place] [address] Care Team Providers Care Pharmacy Graduate Intern Name Role Phone Tamara Neal MD Primary Care Provider + Reason for Visit * Reason Onset Date Comments Results 02/23/2011 Encounter Details Date Type Department Care Team (Late st Contact Info) Description 02/23/2011 Telephone [facility] Family Medicine - [address] [phone] Tamara Neal MD [address] [place] [phone] Results Social History Tobacco Use Types Packs/Day [...] Telephone Encounter - Latesha Naqvi LPN - 02/23/2011 1614 EDT Advised patient that we cannot release information over the phone because the MD has not reviewed them yet. Patient asked if the results had gone lower and I advised I could not give her that information until Dr. Neal saw them. Patient verbalized understanding. * Telephone Encounter - Nadine Stewart - 02/23/2011 1600 EDT Patient had her a1c drawn this morning would like results, thanks. documented in this encounter Plan of Treatment Not on file documented as of this encounter Visit Diagnoses Not on filedocumented in this encounter Care Teams Pharmacy Graduate Intern Relationship Specialty Start Date End Date Tamara Neal MD [address] [place] [phone] PCP - General 09/13/08 03/18/13 documented as of this encounter
--- OUTSIDE RECORDS SUMMARY | 2024-02-14 15:27 | XMS_ITS | Encounter Summary ---
Author Organization [facility] Address [address] [place] [address] Care Team Providers Care Devulcanizer Head Name Role Phone Madelyn Reina MD Primary Care Provider + Reason for Visit * Reason Onset Date Comments Drug Screen 06/13/2011 Encounter Details Date Type Department Care Team (Late st Contact Info) Description 06/13/2011 Telephone [facility] Family Medicine [address] [address] Humera Guerrero RN Drug Screen Social History Tobacco Use Types Packs/Day Years [...] encounter Miscellaneous Notes * Telephone Encounter - Humera Guerrero RN - 06/13/2011 0818 EST Message copied by HUMERA GUERRERO on SatJun 13, 2011 0831 ------ Message from: MADELYN REINA Created: SatJun 12, 2011 1743 Will need PILL COUNT and UD6 and opiate conf 06/25/2011 If comes in for this then will get Rx for 06/26 06/13 @ 8:59 Pt doesn't need a pill count. Just the UD6. Verbal order Dr. Reina repeated and confirmed. 06/18 @ 10:07 Message left on the patient's voicemail to call back documented in this encounter Plan of Treatment Not on file documented as of this encounter Visit Diagnoses Not on filedocumented in this encounter Care Teams Devulcanizer Head Relationship Specialty Start Date End Date Madelyn Reina MD [address] [place] [phone] PCP - General 09/13/08 03/18/13 documented as of this encounter
--- OUTSIDE RECORDS SUMMARY | 2024-02-14 15:27 | XMS_ITS | Encounter Summary ---
Author Organization [facility] Address [address] [place] [address] Care Team Providers Care Skiing Teacher Name Role Phone Tamara Neal MD Primary Care Provider + Reason for Visit * Reason Comments Medication Management Diabetes Encounter Details Date Type Department Care Team (Late st Contact Info) Description 12/12/2010 15:30 EDT Office Visit [facility] [address] [id number] Tamara Neal MD [address] [place] [address] [phone] Type 2 diabetes mellitus without (mention of) complications (Primary Dx); LBP (low back pain); Left hip pain Social History Tobacco Use [...] Reading Time Taken Comments Blood Pressure 144/76 12/12/2010 1530 EDT Pulse 76 12/12/2010 1530 EDT Temperature - - Respiratory Rate - - Oxygen Saturation - - Inhaled Oxygen Concentration - - Weight 92.1 kg (203 lb) 12/12/2010 1530 EDT Height - - Body Mass Index 38.36 11/06/2010 1253 EDT documented in this encounter Ordered Prescriptions Prescription Sig Dispensed Refills Start Date End Da te HYDROmorphone (DILAUDID) 8 mg tablet Take 1 Tab by mouth every 4 hours as needed. 70 Each 0 12/26/2010 01/09/2011 HYDROmorphone (DILAUDID) 8 mg tablet Take 1 Tab by mouth every 4 hours as needed. 70 Each 0 12/12/2010 12/12/2010 pioglitazone (ACTOS) 30 mg tablet Take 1 Tab by mouth daily. 30 Tab 3 12/12/2010 08/12/2012 documented in this encounter Progress Notes * Tamara Neal MD - 12/15/2010 0715 EDT Subjective: Patient ID: Guzman Jean is an 35 y.o. female. Chief Complaint Patient presents with ??? Medication Management ??? Diabetes Diabetes She presents for her follow-up diabetic visit. She has type 2 diabetes mellitus. No MedicAlert identification noted. Her disease course has been fluctuating. Pertinent negatives for diabetes include no blurred vision, no chest pain, no polydipsia, no polyphagia, no polyuria and no weight loss. Symptoms are worsening. There are no hypoglycemic associated symptoms. There are no hypoglycemic complications. Pertinent negatives for diabetic complications include no CVA, heart disease, peripheral neuropathy, PVD or retinopathy. Risk factors for coronary artery disease include diabetes mellitus and obesity. Current diabetic treatment includes oral agent (dual therapy) (rcent addition of Actos 15 mg daily 2 mos ago, still with sugars 300s). She is compliant with treatment most of the time. There is no change in her home blood glucose trend. Her weight is stable. She is following a generally healthy diet. She participates in exercise intermittently. An PHILIPPE inhibitor/angiotensin II receptor oleg is not being taken. Patient Active Problem List Diagnoses Code ??? Routine general medical examination at health care facility V70.0A ??? Type 2 diabetes mellitus without (mention of) complications 250.00FM ??? Polycystic ovaries 256.4 ??? Contraceptive management V25.9B ??? Insertion of (intrauterine) contraceptive device V25.11H ??? Left buttock pain 729.1CN ??? Left hip pain 719.45L ??? LBP (low back pain) 724.2AF Past Medical History Diagnosis Date ??? Type 2 diabetes mellitus without (mention of) complications 02/15/2005 ??? Routine general medical examination at health care facility 02/15/2005 ??? Polycystic ovaries 01/21/2008 ??? Fatigue ??? Wears glasses ??? Back pain ??? Anxiety ??? LBP (low back pain) 11/14/2010 Current outpatient prescriptions ordered prior to encounter Medication Sig Dispense Refill ??? HYDROmorphone (DILAUDID) 8 mg tablet Take 1 Tab by mouth every 4 hours as needed. 70 Each 0 ??? cyclobenzaprine (FLEXERIL) 10 mg tablet Take 1 Tab by mouth 2 times daily as needed for Muscle Spasms. 60 Tab 2 ??? trazodone (DESYREL) 100 mg tablet Take 1 Tab by mouth at bedtime. Take half to one tablet at bedtime 90 Tab 4 ??? fluticasone (FLONASE) 50 mcg/Actuation nasal spray 1 [place] by Nasal route daily. 1 Bottle 2 ??? metformin (GLUCOPHAGE) 1,000 mg tablet Take 1 Tab by mouth 2 times daily. 60 Tab 5 ??? levonorgestrel (MIRENA) 20 mcg/24 hr IUD [...] Cigarettes Quit date: 08/23/2007 ??? Smokeless tobacco: Not on file ??? Alcohol Use: No Review of Systems Constitutional: Negative for weight loss. Eyes: Negative for blurred vision. Cardiovascular: Negative for chest pain. Genitourinary: Negative for polyuria. Endo/Heme/Allergies: Negative for polydipsia and polyphagia. - See HPI Objective: BP 144/76 Pulse 76 Wt 92.08 kg (203 lb) Physical Exam Constitutional: She appears well-developed and well-nourished. No distress. HENT: Head: Normocephalic. Eyes: No scleral icterus. Assessment: Plan: Guzman was seen today for medication management and diabetes. Diagnoses and associated orders for this visit: Type 2 diabetes mellitus without (mention of) complications Need another 4-5 weeks before re-checking HgA1C But likely sugars still high and would benefit from increasing Actos to 30 mg daily - Generic DME Order, new glucomter - Hemoglobin A1c; Future Lbp (low back pain), followed by ortho Re-imaging coming up For now con't Narcotics Dilaudid 8 mg every 4 hrs prn Left hip pain, followed by ortho Other Orders - pioglitazone (ACTOS) 30 mg tablet; Take 1 Tab by mouth daily. - Discontinue: HYDROmorphone (DILAUDID) 8 mg tablet; Take 1 Tab by mouth every 4 hours as needed. - HYDROmorphone (DILAUDID) 8 mg tablet; Take 1 Tab by mouth every 4 hours as needed. documented in this encounter Plan of Treatment Not on file documented as of this encounter Results * HEMOGLOBIN A1C (02/23/2011 11:13 EDT) Hemoglobin A1C 8.6 % [facility] Comment: Reference Range: <5.7% Normal 5.7-6.4% Increased risk for diabetes =>6.5% Diagnostic for diabetes (if confirmed) The A1c goal for non adults in general is <7%. The A1c goal for selected patients may be significantly lower than 7% if this can be achieved without significant hypoglycemia or other adverse effects of treatment. Est Avg Glucose 200 mg/dl [facility] Comment: eAG represents the A1c result expressed as average glucose in mg/dl. Blood specimen (specimen) 02/23/2011 11:13 EDT 02/23/2011 12:04 EDT Tamara Neal MD CHEMISTRY & BLOO D GAS ORDERABLES [facility] [address] [place] [address] documented in this encounter Visit Diagnoses Diagnosis Type 2 diabetes mellitus without (mention of) complications- Primary Type II or unspecified type diabetes mellitus without mention of complication, not stated as uncontrolled LBP (low back pain) Lumbago Left hip pain Pain in joint, pelvic region and thigh documented in this encounter Discontinued Medications Medication Sig Discontinue Reason Start Date End Da te pioglitazone (ACTOS) 15 mg tablet Take 1 Tab by mouth daily. 10/10/2010 12/12/2010 HYDROmorphone (DILAUDID) 8 mg tablet Take 1 Tab by mouth every 4 hours as needed. Reorder 11/28/2010 12/12/2010 HYDROmorphone (DILAUDID) 8 mg tablet Take 1 Tab by mouth every 4 hours as needed. Reorder 12/12/2010 12/12/2010 documented as of this encounter Orders Equipment Count Last Ordered Date First Orde red Date GENERIC DME ORDER 1 12/12/2010 documented in this encounter Care Teams Skiing Teacher Relationship Specialty Start Date End Date Tamara Neal MD [address] [place] [address] [phone] PCP - General 09/13/08 03/18/13 documented as of this encounter
--- OUTSIDE RECORDS SUMMARY | 2024-02-14 15:27 | XMS_ITS | Encounter Summary ---
Author Organization [facility] Address [address] [place] [address] Care Team Providers Care Sea Air Land Officer Name Role Phone Tamara Neal MD Primary Care Provider + Reason for Visit * Reason Onset Date Comments Appointment Related 12/07/2010 Encounter Details Date Type Department Care Team (Late st Contact Info) Description 12/07/2010 Telephone [facility] Spine Program - [address] [place] [address] Marcin Chacko PA-C [facility] [place] [phone] Appointment Related Social History Tobacco [...] encounter Miscellaneous Notes * Telephone Encounter - Rafi Dunaway - 12/07/2010 0953 EDT Left VM with d/t of MRI, and f/u with Pieter Chacko. Sent info handout and requested confirmation callback. documented in this encounter Plan of Treatment Not on file documented as of this encounter Visit Diagnoses Not on filedocumented in this encounter Care Teams Sea Air Land Officer Relationship Specialty Start Date End Date Tamara Neal MD [address] [place] [phone] PCP - General 09/13/08 03/18/13 documented as of this encounter
--- OUTSIDE RECORDS SUMMARY | 2024-02-14 15:27 | XMS_ITS | Encounter Summary ---
Author Organization [facility] Address [address] [place] [address] Care Team Providers Care Electric Train Driver Name Role Phone Tamara Neal MD Primary Care Provider + Reason for Visit * Reason Onset Date Comments Medications Refill 06/25/2011 Encounter Details Date Type Department Care Team (Late st Contact Info) Description 06/25/2011 Telephone [facility] Family Medicine - [address] [phone] Tamara Neal MD [address] [place] [phone] Medications Refill Social History Tobacco Use Types [...] Telephone Encounter - Awilda Fang RN - 06/26/2011 0909 EST Pt notified that Dilaudid prescription is ready for her to olive picker. She states she will be into the office later this am to get it. Per prism telephone encounter from 06/13/11, pt will need to give urine for UD6 and opiate confirmation prior to receiving the prescription. Addendum: came in to the office to olive picker the prescription. He was informed by the [facility] staff that patient needs to pick it up. * Telephone Encounter - Nadine Stewart - 06/26/2011 0853 EST Please call Guzman at [phone] when script is ready, thanks. * Telephone Encounter - Wanda Jordan - 06/25/2011 1706 EST Patient stats that Dr. Neal was going to leave a refill up front for her to pick Monday 06/26. Patient will be all out tomorrow. documented in this encounter Plan of Treatment Not on file documented as of this encounter Visit Diagnoses Not on filedocumented in this encounter Care Teams Electric Train Driver Relationship Specialty Start Date End Date Tamara Neal MD [address] [place] [phone] PCP - General 09/13/08 03/18/13 documented as of this encounter
--- OUTSIDE RECORDS SUMMARY | 2024-02-14 15:27 | XMS_ITS | Encounter Summary ---
Author Organization [facility] Address [address] [place] [address] Care Team Providers Care Bus Girl Name Role Phone Tamara Neal MD Primary Care Provider + Reason for Visit * Reason Comments Hip Pain left Encounter Details Date Type Department Care Team (Late st Contact Info) Description 01/02/2011 15:30 EDT Office Visit [facility] Sports Medicine Program - [address] [address] Alberto Moffett MD [address] [place] [phone] Left hip pain (Primary Dx) Social [...] Progress Notes * Alberto Moffett MD - 01/10/2011 1426 EDT Sports Medicine Service [facility] [address] [place] [phone] PROGRESS/FOLLOWUP NOTE - 01/02/2011 PROBLEM: Left hip pain and sciatica. SUBJECTIVE: Guzman returns for followup evaluation of her left hip pain. She has now had pain since 08/16/2009. Since her last visit with me, she has once again seen [facility] Chacko [facility]. A new MRI was obtained. She is scheduled to review this with Pieter in person in the near future. Herchief complaint now is ongoing left groin pain and sciatica. She continues to take oral narcotics. OBJECTIVE: She was not formally examined today. ASSESSMENT AND PLAN: It is still unclear what the various sources of her pain are. She did have an intraarticular injection into her left hip joint by Dr Coe on 07/28/10. In retrospect, it is unclear how she responded to this injection. I recommended a repeat left hip joint injection for diagnostic purposes. This will be done with local anesthetic. If she has a positive response to the injectionand Pieter Chacko does not feel that she has any relevant lumbar spine pathology, I would consider a left hip arthroscopy as a last resort to try and improve her symptoms. Electronically Signed by Alberto Moffett MD 01/10/2011 14:26 Alberto Moffett MD - Alberto Moffett MD - JG Job ID: SM Doc ID: [id number] Ext Doc ID: [id number] cc: Tamara Neal MD * Alberto Moffett MD - 01/02/2011 1754 EDT This office note has been dictated. documented in this encounter Plan of Treatment Not on file documented as of this encounter Visit Diagnoses Diagnosis Left hip pain- Primary Pain in joint, pelvic region and thigh documented in this encounter Care Teams Bus Girl Relationship Specialty Start Date End Date Tamara Neal MD [address] [place] [address] [phone] PCP - General 09/13/08 03/18/13 documented as of this encounter
--- OUTSIDE RECORDS SUMMARY | 2024-02-14 15:27 | XMS_ITS | Encounter Summary ---
Author Organization [facility] Address [address] [place] [address] Care Team Providers Care Coning Machine Operator Name Role Phone Tamara Neal MD Primary Care Provider + Encounter Details Date Type Department Care Team (Latest Contact Info) Description 07/02/2011 12:12 EST - 07/02/2011 23:59 [facility] Hospital Encounter [facility] [address] [place] [phone] Tamara Neal MD [address] [place] [address] [phone] Discharge Disposition: Home or Self Care Social [...] mouth every 4 hours as needed. 04/27/2014 citalopram (CELEXA) 20 mg tablet Take 1 Tab by mouth daily. 90 Tab 3 06/12/2011 11/26/2011 cyclobenzaprine (FLEXERIL) 10 mg tabletIndications:Chr onic pain syndrome Take 1 Tab by mouth 2 times daily as needed for Muscle Spasms. 60 Tab 2 06/12/2011 10/17/2011 fluconazole (DIFLUCAN) 150 mg tablet Take 1 Tab by mouth daily. 1 Each 1 06/15/2011 07/03/2011 fluticasone (FLONASE) 50 mcg/Actuation nasal sprayIndications:Pelon rgic rhinitis 1 [place] by Nasal route daily. 1 Bottle 2 08/01/2010 09/24/2012 glipiZIDE (GLUCOTROL) 5 mg tablet Take 5 mg by mouth daily. 07/03/2011 HYDROmorphone (DILAUDID) 8 mg tablet Take 1 Tab by mouth 4 times daily as needed. Take No More than 4 tabs daily 56 Each 0 06/26/2011 07/03/2011 ibuprofen (MOTRIN) 200 mg tablet Take 3 [...] Code Departure Means Destination Home or Self [facility] documented in this encounter Plan of Treatment Not on file documented as of this encounter Visit Diagnoses Not on filedocumented in this encounter Care Teams Coning Machine Operator Relationship Specialty Start Date End Date Tamara Neal MD [address] [place] [phone] PCP - General 09/13/08 03/18/13 documented as of this encounter
--- OUTSIDE RECORDS SUMMARY | 2024-02-14 15:27 | XMS_ITS | Encounter Summary ---
Author Organization [facility] Address [address] [place] [address] Care Team Providers Care Supervisor Molding Name Role Phone Tamara Neal MD Primary Care Provider + Encounter Details Date Type Department Care Team (Late st Contact Info) Description 01/25/2011 Orders Only [facility] Sports Medicine Program - [address] [address] Alberto Moffett MD [address] [place] [phone] Hip pain (Primary Dx) Social [...] thigh documented in this encounter Care Teams Supervisor Molding Relationship Specialty Start Date End Date Tamara Neal MD [address] [place] [phone] PCP - General 09/13/08 03/18/13 documented as of this encounter
--- OUTSIDE RECORDS SUMMARY | 2024-02-14 15:27 | XMS_ITS | Encounter Summary ---
Author Organization [facility] Address [address] [place] [address] Care Team Providers Care Maintenance Supervisor Mechanical Name Role Phone Tamara Neal MD Primary Care Provider + Reason for Visit * Reason Onset Date Comments Appointment Related 08/03/2011 Encounter Details Date Type Department Care Team (Late st Contact Info) Description 08/03/2011 Telephone [facility] Rehabilitation Therapy - Medical Office Building [address] [place] [phone] Heena Sin, MILAN Appointment Related Social History Tobacco Use Types [...] * Telephone Encounter - Suly Wilkins - 08/03/2011 1314 EDT There is a new case manager specialist for this patient. The new case manager specialist's name is: Gal Macias. Her phone# , Her fax # . I have faxed the 08/02/11 OT note to her. documented in this encounter Plan of Treatment Not on file documented as of this encounter Visit Diagnoses Not on filedocumented in this encounter Care Teams Maintenance Supervisor Mechanical Relationship Specialty Start Date End Date Tamara Neal MD [address] [place] [phone] PCP - General 09/13/08 03/18/13 documented as of this encounter
--- OUTSIDE RECORDS SUMMARY | 2024-02-14 15:27 | XMS_ITS | Encounter Summary ---
Author Organization [facility] Address [address] [place] [address] Care Team Providers Care Seed Corn Manager Production Name Role Phone Tamara Neal MD Primary Care Provider + Reason for Visit * Reason Onset Date Comments Appointment Related 01/12/2011 Encounter Details Date Type Department Care Team (Late st Contact Info) Description 01/12/[address] [facility] Spine Program - [place] [facility] [place] [address] Marcin Chacko PA-C [facility] [place] [phone] Appointment Related Social History Tobacco [...] encounter Miscellaneous Notes * Telephone Encounter - Quincy Walters - 01/12/2011 1127 EDT Patient notified of time and date of EMG and surgical consult with Dr. Diamond. Instructions/education provided verbally. . documented in this encounter Plan of Treatment Not on file documented as of this encounter Visit Diagnoses Not on filedocumented in this encounter Care Teams Seed Corn Manager Production Relationship Specialty Start Date End Date Tamara Neal MD [address] [place] [phone] PCP - General 09/13/08 03/18/13 documented as of this encounter
--- OUTSIDE RECORDS SUMMARY | 2024-02-14 15:27 | XMS_ITS | Encounter Summary ---
Author Organization [facility] Address [address] [place] [address] Care Team Providers Care Quiller Operator Name Role Phone Tamara Neal MD Primary Care Provider + Reason for Visit * Reason Comments MEDICATION CHECK Encounter Details Date Type Department Care Team (Late st Contact Info) Description 06/12/2011 17:30 EST Office Visit [facility] Family Medicine [address] [address] Tamara Neal MD [address] [place] [address] [phone] Chronic pain syndrome (Primary Dx); Type 2 diabetes mellitus without (mention of) complications; LBP (low back pain) Discharge Disposition: Auto Discharge Social History Tobacco [...] Sign Reading Time Taken Comments Blood Pressure 138/88 06/12/2011 1707 EST Pulse 60 06/12/2011 1707 EST Temperature - - Respiratory Rate - - Oxygen Saturation - - Inhaled Oxygen Concentration - - Weight 86.2 kg (190 lb) 06/12/2011 1707 EST Height - - Body Mass Index 37.11 02/27/2011 1639 EDT documented in this encounter Patient Instructions * Patient Instructions* Tamara Neal MD - 06/12/2011 17:27 EST PLEASE CALL REGARDING BLOOD SUGAR LEVELS IN ONE WEEK I WILL NEED TO KNOW THE ACTUAL LEVELS ALSO REPORT ON PAIN ISSUES documented in this encounter Ordered Prescriptions Prescription Sig Dispensed Refills Start Date End Da te HYDROmorphone (DILAUDID) 8 mg tablet Take 1 Tab by mouth 4 times daily as needed. Take No More than 4 tabs daily 56 Each 0 06/26/2011 07/03/2011 insulin glargine (LANTUS) 100 unit/mL injection 10 units at bedtime 1 Vial 3 06/12/2011 07/09/2012 HYDROmorphone (DILAUDID) 8 mg tablet Take 1 Tab by mouth 4 times daily as needed. Take No More than 4 tabs daily 56 Each 0 06/12/2011 06/12/2011 citalopram (CELEXA) 20 mg tablet Take 1 Tab by mouth daily. 90 Tab 3 06/12/2011 11/26/2011 cyclobenzaprine (FLEXERIL) 10 mg tabletIndications:Chronic pain syndrome Take 1 Tab by mouth 2 times daily as needed for Muscle Spasms. 60 Tab 2 06/12/2011 10/17/2011 documented in this encounter Discharge Disposition Disposition Code Departure Means Destination Auto Discharge documented in this encounter Progress Notes * Tamara Neal MD - 06/12/2011 1745 EST Subjective: Patient ID: Guzman Jean is an 35 y.o. female. Chief Complaint Patient presents with ??? MEDICATION CHECK Diabetes She presents for her follow-up diabetic visit. She has type 2 diabetes mellitus. Her disease coursehas been worsening. There are no hypoglycemic associated symptoms. (No hypoglycemia with additionalLOW Dose Glipzide 5 mg daily But NO improvement in BS, still > 300) There are no diabetic associated symptoms. Pertinent negatives for diabetes include no chest pain, no fatigue and no weight loss. There are no hypoglycemic complications. Symptoms are stable. There are no diabetic complications. Risk factors for coronary artery disease include diabetes mellitus, stress and obesity. Current diabetic treatment includes oralagent (triple therapy) (jonathon additional Glipizide w/o diarrhea). She is compliant with treatment most of the time. Her weight is stable. She is following a generally healthy diet. Meal planning includes ADA exchanges. She has not had a previous visit with a fur machine operator. She participates in exercise int ermittently (hip and back pain limits). Her home blood glucose trend is increasing steadily. Her breakfast blood glucose range is generally >200 mg/dl. Her dinner blood glucose is taken after 8 pm. Her dinner blood glucose range is generally >200 mg/dl. An PHILIPPE inhibitor/angiotensin II receptor oleg is not being taken. Wonders about 'time for insulin use Used insulin during pregnancies and feels comfortable injecting More stress, Daughter's injury (up ext compartment syn) although she is doing much better from , she is living with her parents again Hip and back pain still issue Missed appts in ortho and APS due to nasim's health Using Dilaudid 8 mg 5 tabs daily (I initially made error and noted that you had enough for 7 tabs daily and she did not correct me) She has been using 4-5 tabs daily for many months now, receiving #70 per 14 days Rx Also uses Flexeril 10 mg QHS and occ 1 tab during the day but makes her feel tired/groggy Patient Active Problem List Diagnoses ??? Routine general medical examination at health care facility ??? Type 2 diabetes mellitus without (mention of) complications ??? Polycystic ovaries ??? Contraceptive management ??? Insertion of (intrauterine) contraceptive device ??? Left buttock pain ??? Left hip pain ??? LBP (low back pain) Past Medical History Diagnosis Date ??? Type 2 diabetes mellitus without (mention of) complications 02/15/2005 ??? Routine general medical examination at health care facility 02/15/2005 ??? Polycystic ovaries 01/21/2008 ??? Fatigue ??? Wears glasses ??? Back pain ??? Anxiety ??? LBP (low back pain) 11/14/2010 Current Outpatient Prescriptions on File Prior to Visit Medication Sig Dispense Refill ??? HYDROmorphone (DILAUDID) 8 mg tablet Take 1 Tab by mouth 4 times daily as needed. Take No More than 4 tabs daily 56 Each 0 ??? glipiZIDE (GLUCOTROL) 5 mg tablet Take 5 mg by mouth daily. ??? fluconazole (DIFLUCAN) 150 mg tablet Take 1 Tab by mouth daily. 1 Each 1 ??? metformin (GLUCOPHAGE) 1,000 mg tablet Take 1 Tab by mouth 2 times daily. 180 Tab 3 ??? pioglitazone (ACTOS) 30 mg tablet Take 1 Tab by mouth daily. 30 Tab 3 ??? trazodone (DESYREL) 100 mg tablet Take 1 Tab by mouth at bedtime. Take half to one tablet at bedtime 90 Tab 4 ??? fluticasone (FLONASE) 50 mcg/Actuation nasal spray 1 [place] by Nasal route daily. 1 Bottle 2 [...] Review of Systems Constitutional: Negative for weight loss and fatigue. Cardiovascular: Negative for chest pain. - See HPI Objective: BP 138/88 Pulse 60 Wt 86.183 kg (190 lb) Physical Exam Constitutional: She appears well-developed and well-nourished. No distress. HENT: Head: Normocephalic and atraumatic. Eyes: Conjunctivae are normal. No scleral icterus. Assessment: Plan: Guzman was seen today for medication check. Diagnoses and associated orders for this visit: Chronic pain syndrome See below) - cyclobenzaprine (FLEXERIL) 10 mg tablet; Take 1 Tab by mouth 2 times daily as needed for Muscle Spasms. - Drug Screen 6; Future - DRUG SCREEN, OPIATE CONFIRMATION, URINE; Future Type 2 diabetes mellitus without (mention of) complications NOT at goal Did start low dose Glipizide but sugars still > 300 Pain and stress will contribute STOP Glipizide Start Lantus 10 units at bedtime Reviewed when NOT to use (ie bedtime sugar < 100) and symptoms of hypoglycemia Has used insulin during Needs labs in 1-2 weeks Call next week with BS log con't Metformin and ACTOS for now - HEMOGLOBIN A1C; Future - LIPID PROFILE (INCLUDES CHOLESTEROL, TRIGLYCERIDES, HDL, LDL); Future - COMPREHENSIVE METABOLIC PANEL (CMP); Future - MICROALBUMIN [FNE333]; Future - Generic DME Order Lbp (low back pain) and hip pain Still waiting on diagnostic and therapeutic hip injection with Dr. Moffett Appt cancellations due to daughter's MVA and UP EXT compartment syn Has been on fairly high dose Dilaudid 8 mg tabs for some time (initially Rx'ed by Dr. Mcdonald in anesthesia pain) Down to 5 tabs daily (although initially agreed when I mentioned 7 tabs daily in error) Will transition down to 4 tabs daily (#28 per 7 days) con't Flexeril once to twice daily Pill count and UD6 and Opiate confirmation on 06/25 in order to cook pickled meat Rx dated for 06/26 for 2 weeksupply Goal to wean down as low as possible pending POSSIBLE hip surgery Also when calls next week regarding blood sugars should let us know how pain is doing Other Orders - citalopram (CELEXA) 20 mg tablet; Take 1 Tab by mouth daily. - Discontinue: HYDROmorphone (DILAUDID) 8 mg tablet; Take 1 Tab by mouth 4 times daily as needed. Take No More than 4 tabs daily - insulin glargine (LANTUS) 100 unit/mL injection; 10 units at bedtime - HYDROmorphone (DILAUDID) 8 mg tablet; Take 1 Tab by mouth 4 times daily as needed. Take No More than 4 tabs daily documented in this encounter Plan of Treatment Not on file documented as of this encounter Results * (ABNORMAL) COMPREHENSIVE METABOLIC PANEL (CMP) (07/02/2011 12:30 EST) Potassium 4.3 3.5 - 5.0 mEq/L [facility] Sodium 140 136 - 145 mEq/L [facility] Chloride 101 96 - 110 mEq/L [facility] CO2 27 24 - 32 mEq/L [facility] Total Alkaline Phosphatase 74 38 - 126 U/L [facility] Bilirubin, Total 0.8 0.2 - 1.3 mg/dl [facility] AST 42 15 - 46 U/L [facility] ALT 60(H) 9 - 52 U/L [facility] Albumin 4.8 3.4 - 4.9 g/dl [facility] Total Protein 7.6 6.5 - 8.3 g/dl [facility] Creatinine 0.60 0.52 - 1.04 mg/dl [facility] GFR, Calculated >60 >60 ml/min/1.7 3m2 [facility] BUN 6(L) 10 - 26 mg/dl [facility] Calcium 9.5 8.5 - 10.5 mg/dl [facility] Calculated Calcium 9.1 8.5 - 10.5 mg/dl [facility] Glucose, Serum 88 70 - 100 mg/dl [facility] Fasting? Yes [facility] Blood specimen (specimen) 07/02/2011 12:30 EST 07/02/2011 13:50 EST Tamara Neal MD CHEMISTRY & BLOO D GAS ORDERABLES Performing Organization Address City/State/[facility] Co de Phone Number [facility] [address] [place] [address] * LIPID PROFILE (INCLUDES CHOLESTEROL, TRIGLYCERIDES, HDL, LDL) (07/02/2011 12:30 EST) Cholesterol 226 mg/dl [facility] Comment: Desirable:<200 Borderline High:200-239 High:>ei=797 Triglycerides 295 mg/dl [facility] Comment: Normal:<150 Borderline High:150-199 High:200-499 Very High:>fg=595 HDL 46 mg/dl [facility] Comment: Low:<40 Normal:40-60 Desirable: >60 LDL, Calculated 121 mg/dl [facility] Comment: Optimal:<100 Near Optimal:100-129 Borderline High:130-159 High:160-189 Very High:>nj=771 Chol/HDL Ratio 4.9 [facility] Fasting? Yes [facility] Blood specimen (specimen) 07/02/2011 12:30 EST 07/02/2011 13:50 EST Tamara Neal MD CHEMISTRY & BLOO D GAS ORDERABLES Performing Organization Address [facility] de Phone Number [facility] [address] [place] [address] * OPIATE CONFIRMATION (06/26/2011 13:49 EST) Opiates Positive Cutoff: 300 ng/mL [facility] Comment: (Note) This report is intended for use in clinical monitoring and management of patients. It is not intended for use in employment-related drug testing. Conf, Opiates Positive [facility] Codeine Negative <100 ng/mL [facility] Hydrocodone Negative <100 ng/mL [facility] Hydromorphone 2651 <100 ng/mL [facility] Morphine Negative <100 ng/mL [facility] Oxycodone Negative <100 ng/mL [facility] Oxymorphone Negative <100 ng/mL [facility] Comment: (Note) This report is intended for use in clinical monitoring and management of patients. It is not intended for use in employment-related drug testing. Performed by: [facility], [address], [place] [address], Fire Chief Deputy: Rose Lincoln, Ph.D. Urine specimen (specimen) 06/26/2011 13:49 EST 06/26/2011 18:12 EST Tamara Neal MD URINALYSIS ORDER YOON Performing Organization Address [facility] de Phone Number [facility] [address] [place] [address] * DRUG SCREEN 6 (06/26/2011 13:49 EST) Amphetamine Screen, Urine Negative screen. [facility] [...] ng/ml Cannabinoid Scrn, Ur Negative screen. [facility] Comment: [...] does not detect methadone. Urine specimen (specimen) 06/26/2011 13:49 EST 06/26/2011 18:12 EST Tamara Nael MD URINALYSIS ORDER YOON Performing Organization Address [facility] de Phone Number [facility] [address] [place] [address] * ALBUMIN, URINE (06/26/2011 13:49 EST) Creatinine, Urn [place] 117.6 mg/dl [facility] Ur Albumin mg/dl 0.9 <1.9 mg/dl [facility] Ur Alb ug/mg Crea 7.7 ug/mg Crea [facility] Comment: Normal: <30 ug/mg creat High: 30-300 ug/mg creat Very high and nephrotic: >300 ug/mg creat Urine specimen (specimen) 06/26/2011 13:49 EST 06/26/2011 18:12 EST Tamara Neal MD CHEMISTRY & BLOO D GAS ORDERABLES Performing Organization Address [facility] de Phone Number [facility] [address] [place] [address] documented in this encounter Visit Diagnoses Diagnosis Chronic pain syndrome- Primary Type 2 diabetes mellitus without (mention of) complications Type II or unspecified type diabetes mellitus without mention of complication, not stated as uncontrolled LBP (low back pain) Lumbago documented in this encounter Discontinued Medications Medication Sig Discontinue Reason Start Date End Da te cyclobenzaprine (FLEXERIL) 10 mg tabletIndications:Chroni c pain syndrome Take 1 Tab by mouth 2 times daily as needed for Muscle Spasms. Reorder 02/06/2011 06/12/2011 citalopram (CELEXA) 20 mg tablet Take 1 Tab by mouth daily. Reorder 02/27/2011 06/12/2011 HYDROmorphone (DILAUDID) 8 mg tablet Take 1 Tab by mouth every 4 hours as needed. Reorder 05/29/2011 06/12/2011 HYDROmorphone (DILAUDID) 8 mg tablet Take 1 Tab by mouth 4 times daily as needed. Take No More than 4 tabs daily Reorder 06/12/2011 06/12/2011 documented as of this encounter Orders Lab Orders Without Results Count Last Ordered D ate First Ordered Date HEMOGLOBIN A1C 1 06/12/2011 Equipment Count Last Ordered Date First Orde red Date GENERIC DME ORDER 1 06/12/2011 documented in this encounter Care Teams Quiller Operator Relationship Specialty Start Date End Date Tamara Neal MD [address] [place] [phone] PCP - General 09/13/08 03/18/13 documented as of this encounter
--- OUTSIDE RECORDS SUMMARY | 2024-02-14 15:27 | XMS_ITS | Encounter Summary ---
Author Organization [facility] Address [address] [place] [address] Care Team Providers Care Manufacturing Clerk Name Role Phone Tamara Neal MD Primary Care Provider + Reason for Visit * Reason Onset Date Comments Appointment Related 06/20/2011 Encounter Details Date Type Department Care Team (Late st Contact Info) Description 06/20/2011 Telephone [facility] Therapy - Medical Office Building [address] [place] [phone] Haim Esteban, DO [address] [place] [phone] Appointment Related Social History Tobacco Use Types [...] * Telephone Encounter - Suly Wilkins - 06/20/2011 4837 EST Here is the correct W/C information on this patient: 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; Jose Carlos Palma Case: [id number] Patient: HILDA CROWLEY W/C Carrier: Employer: W/C Ovrd: [employer] Emp Ovrd: [employer] W/C Addr L1: Emp Addr L1: W/C Addr L2: [address] Emp Addr L2: [address] [facility],State: [facility],St: [place], [place] Zip Code: [address] Emp Zip: [address] W/C Emp W/C Claim #: [id number] Emp Status Code: EMPLOYED FULL AMOS Eff Date: 06/11/2011 Signature on File?: Y Exp Date: Date Signature Received: 06/12/2011 documented in this encounter Plan of Treatment Not on file documented as of this encounter Visit Diagnoses Not on filedocumented in this encounter Care Teams Manufacturing Clerk Relationship Specialty Start Date End Date Tamara Neal MD [address] [place] [phone] PCP - General 09/13/08 03/18/13 documented as of this encounter
--- OUTSIDE RECORDS SUMMARY | 2024-02-14 15:27 | XMS_ITS | Encounter Summary ---
Author Organization [facility] Address [address] [place] [address] Care Team Providers Care Appeals Rn Name Role Phone Tamara Neal MD Primary Care Provider + Encounter Details Date Type Department Care Team (Latest Contact Info) Description 06/28/2011 13:00 EST - 06/28/2011 23:59 [facility] Hospital Encounter [facility] - Medical Office Building [phone] Tamara Neal MD [address] [place] [phone] Discharge Disposition: Home or Self Care Social [...] 50 mcg/Actuation nasal sprayIndications:Pelon rgic rhinitis 1 [place] by Nasal route daily. 1 Bottle 2 [...] Code Departure Means Destination Home or Self Assisted documented in this encounter Plan of Treatment Not on file documented as of this encounter Visit Diagnoses Not on filedocumented in this encounter Care Teams Appeals Rn Relationship Specialty Start Date End Date Tamara Neal MD [address] [place] [phone] PCP - General 09/13/08 03/18/13 documented as of this encounter
--- OUTSIDE RECORDS SUMMARY | 2024-02-14 15:27 | XMS_ITS | Encounter Summary ---
Author Organization [facility] Address [address] [place] [address] Care Team Providers Care Animal Surgeon Name Role Phone Tamara Neal MD Primary Care Provider + Reason for Visit * Reason Onset Date Comments Prior Auth, Other (i.e. radiology, etc.) 011 Encounter Details Date Type Department Care Team (Late st Contact Info) Description 02/01/2011 Telephone [facility] Program - [address] [address] Alberto Moffett MD [address] [place] [phone] Prior Auth, Other (i.e. radiology, etc.) Social History Tobacco Use Types Packs/Day Years [...] encounter Miscellaneous Notes * Telephone Encounter - Hayley Sher - 02/01/2011 1534 EDT [place] [phone] No prior auth is needed. Reference: 02.01.11 Jessica.Hayley Sher documented in this encounter Plan of Treatment Not on file documented as of this encounter Visit Diagnoses Not on filedocumented in this encounter Care Teams Animal Surgeon Relationship Specialty Start Date End Date Tamara Neal MD [address] [place] [phone] PCP - General 09/13/08 03/18/13 documented as of this encounter
--- OUTSIDE RECORDS SUMMARY | 2024-02-14 15:27 | XMS_ITS | Encounter Summary ---
Author Organization [facility] Address [address] [place] [address] Care Team Providers Care Hogshead Wrecker Name Role Phone Tamara Neal MD Primary Care Provider + Reason for Visit * Reason Comments Diabetes Here for follow up a nd medication management. Encounter Details Date Type Department Care Team (Late st Contact Info) Description 07/03/2011 16:15 EST Office Visit [facility] [address] [address] Tamara Neal MD [address] [place] [phone] Hyperlipidemia (Primary Dx); Type 2 diabetes mellitus without [...] Reading Time Taken Comments Blood Pressure 126/80 07/03/2011 1614 EST Pulse 92 07/03/2011 1614 EST Temperature 37 ??C (98.6 ??F) 07/03/2011 1614 EST Respiratory Rate 16 07/03/2011 1614 EST Oxygen Saturation - - Inhaled Oxygen Concentration - - Weight 84.8 kg (187 lb) 07/03/2011 1614 EST Height - - Body Mass Index 36.52 02/27/2011 1639 EDT documented in this encounter Ordered Prescriptions Prescription Sig Dispensed Refills Start Date End Da te HYDROmorphone (DILAUDID) 8 mg tablet Take 1 Tab by mouth 4 times daily as needed. Take No More than 4 tabs daily 56 Each 0 07/24/2011 07/31/2011 HYDROmorphone (DILAUDID) 8 mg tablet Take 1 Tab by mouth 4 times daily as needed. Take No More than 4 tabs daily 56 Each 0 07/10/2011 07/03/2011 simvastatin (ZOCOR) 20 mg tablet Take 1 Tab by mouth every evening. 30 Tab 3 07/03/2011 09/04/2011 documented in this encounter Progress Notes * Tamara Neal MD - 07/06/2011 1006 EST Subjective: Patient ID: Guzman Jean is an 35 y.o. female. Chief Complaint Patient presents with ??? Diabetes Here for follow up and medication management. Diabetes She presents for her follow-up diabetic visit. She has type 2 diabetes mellitus. There are no hypoglycemic associated symptoms. Pertinent negatives for diabetes include no chest pain, no polydipsia, no polyphagia, no polyuria and no weakness. There are no hypoglycemic complications. Symptoms are improving. Pertinent negatives for diabetic complications include no autonomic neuropathy, nephropathyor retinopathy. Risk factors for coronary artery disease include stress, diabetes mellitus, dyslipidemia and family history. Current diabetic treatment includes insulin injections and oral agent (dual therapy) (started Lantus insulin 10 units 2-3 weeks ago). She is compliant with treatment most of the time. Her weight is stable. She is following a diabetic diet. She participates in exercise intermittently. Her home blood glucose trend is decreasing steadily. An PHILIPPE inhibitor/angiotensin II receptor oleg is not being taken. She does not see a clinical assessment manager.Eye exam is not current. Patient Active Problem List Diagnoses ??? Routine [...] 4 tabs daily 56 Each 0 ??? cyclobenzaprine (FLEXERIL) 10 mg [...] fluticasone (FLONASE) 50 mcg/Actuation nasal spray 1 [place] by Nasal route daily. 1 Bottle 2 [...] ??? Alcohol Use: No Review of Systems Cardiovascular: Negative for chest pain. Genitourinary: Negative for polyuria. Neurological: Negative for weakness. Endo/Heme/Allergies: Negative for polydipsia and polyphagia. - See HPI Objective: BP 126/80 Pulse 92 Temp(Src) 37 ??C (98.6 ??F) (Oral) Resp 16 Wt 84.823 kg (187 lb) Physical Exam Constitutional: She appears well-developed and well-nourished. No distress. HENT: Head: Normocephalic and atraumatic. Eyes: Conjunctivae are normal. No scleral icterus. Assessment: Plan: Guzman was seen today for diabetes. Diagnoses and associated orders for this visit: Hyperlipidemia NOT at goal Will initiate Zocor 20 mg daily con't behavioral modifications Re-check labs in 4-6 weeks - Lipid Profile (Includes Cholesterol, Triglycerides, HDL, LDL); Future - Liver Function Tests; Future Type 2 diabetes mellitus without (mention of) complications Sugars better on Lantus 10 units at bedtime No hypoglycemic episodes Still on ACTOS and Metformin Might consider incresing dose by few untis Other Orders - VILLATORO'S YEAST ORAL; Take 1 Tab by mouth daily. - APPLE CIDER VINEGAR ORAL; Take 1 Tab by mouth daily. - simvastatin (ZOCOR) 20 mg tablet; Take 1 Tab by mouth every evening. - Discontinue: HYDROmorphone (DILAUDID) 8 mg tablet; Take 1 Tab by mouth 4 times daily as needed. Take No More than 4 tabs daily - HYDROmorphone (DILAUDID) 8 mg tablet; Take 1 Tab by mouth 4 times daily as needed. Take No More than 4 tabs daily documented in this encounter Plan of Treatment Not on file documented as of this encounter Results * LIVER FUNCTION TESTS (09/03/2011 7:56 EDT) Albumin 4.2 3.4 - 4.9 g/dl [facility] Comment: Results may be affected due to hemolysis. Slight hemolysis Total Protein 7.0 6.5 - 8.3 g/dl [facility] Comment: Results may be affected due to hemolysis. Slight hemolysis Total Alkaline Phosphatase 53 38 - 126 U/L [facility] Comment: Hemolysis will decrease ALKP result Suggest re-evaluation if clinically indicated Slight hemolysis ALT 42 9 - 52 U/L [facility] Comment: Results may be affected due to hemolysis. Slight hemolysis AST 30 15 - 46 U/L [facility] Comment: Results may be affected due to hemolysis. Slight hemolysis Unconjugated Bilirubin 0.9 0.1 - 1.1 mg/dl [facility] Comment: Results may be affected due to hemolysis. Slight hemolysis Conjugated Bilirubin 0.0 0.0 - 0.3 mg/dl [facility] Comment: Results may be affected due to hemolysis. Slight hemolysis Bilirubin, Total 0.9 0.2 - 1.3 mg/dl [facility] Comment: Results may be affected due to hemolysis. Slight hemolysis Blood specimen (specimen) 09/03/2011 7:56 EDT 09/03/2011 8:57 EDT Tamara Neal MD CHEMISTRY & BLOO D GAS ORDERABLES Performing Organization Address [facility] Co de Phone Number [facility] [address] [place] [address] * LIPID PROFILE (INCLUDES CHOLESTEROL, TRIGLYCERIDES, HDL, LDL) (09/03/2011 7:56 EDT) Cholesterol 180 mg/dl [facility] Comment: Desirable:<200 Borderline High:200-239 High:>ou=162 Slight hemolysis Triglycerides 159 mg/dl [facility] Comment: Normal:<150 Borderline High:150-199 High:200-499 Very High:>ix=232 Slight hemolysis HDL 55 mg/dl [facility] Comment: Low:<40 Normal:40-60 Desirable: >60 Slight hemolysis LDL, Calculated 93 mg/dl [facility] Comment: Optimal:<100 Near Optimal:100-129 Borderline High:130-159 High:160-189 Very High:>hj=849 Slight hemolysis Chol/HDL Ratio 3.3 [facility] Comment:Slight hemolysis Fasting? Yes [facility] Blood specimen (specimen) 09/03/2011 7:56 EDT 09/03/2011 8:57 EDT Tamara Neal MD CHEMISTRY & BLOO D GAS ORDERABLES Performing Organization Address [facility] de Phone Number [facility] [address] [place] [address] documented in this encounter Visit Diagnoses Diagnosis Hyperlipidemia- Primary Other and unspecified hyperlipidemia Type 2 diabetes mellitus without (mention of) complications Type II or unspecified type diabetes mellitus without mention of complication, not stated as uncontrolled documented in this encounter Discontinued Medications Medication Sig Discontinue Reason Start Date End Da te fluconazole (DIFLUCAN) 150 mg tablet Take 1 Tab by mouth daily. Therapy completed 06/15/2011 07/03/2011 glipiZIDE (GLUCOTROL) 5 mg tablet Take 5 mg by mouth daily. Alternate therapy 07/03/2011 HYDROmorphone (DILAUDID) 8 mg tablet Take 1 Tab by mouth 4 times daily as needed. Take No More than 4 tabs daily Reorder 06/26/2011 07/03/2011 HYDROmorphone (DILAUDID) 8 mg tablet Take 1 Tab by mouth 4 times daily as needed. Take No More than 4 tabs daily Reorder 07/10/2011 07/03/2011 documented as of this encounter Historical Medications * This list may reflect changes made after this encounter. Medication Sig Dispensed Refills Start Date End Date APPLE CIDER VINEGAR ORAL Take 1 Tab by mouth daily. 12/31/2013 VILLATORO'S YEAST ORAL Take 1 Tab by mouth daily. 01/07/2012 added in this encounter Care Teams Hogshead Wrecker Relationship Specialty Start Date End Date Tamara Neal MD [address] [place] [phone] PCP - General 09/13/08 03/18/13 documented as of this encounter
--- OUTSIDE RECORDS SUMMARY | 2024-02-14 15:27 | XMS_ITS | Encounter Summary ---
Author Organization [facility] Address [address] [place] [address] Care Team Providers Care Equity Trader Name Role Phone Tamara Neal MD Primary Care Provider + Reason for Visit * Reason Onset Date Comments Medications Refill 06/15/2011 Encounter Details Date Type Department Care Team (Late st Contact Info) Description 06/15/2011 Refill [facility] Family Medicine - [address] [phone] Tamara Neal MD [address] [place] [phone] Medications Refill Social History Tobacco Use Types [...] mouth daily. 1 Each 1 06/15/2011 07/03/2011 documented in this encounter Miscellaneous Notes * Telephone Encounter - Tamara Neal MD - 06/19/2011 2122 EST Have sugars been better since insulin What have they been How is pain, as we decreased pain meds a bit i did sign for the diflucan * Telephone Encounter - Santa Guerrero, RN - 06/18/2011 1705 EST Guzman states My sugars have been running high 198-300. I started insulin on Saturday. I know have ayeast infection, I think because my blood sugars are so high. I started on a strict diet. I have vaginal itching, burning and discharge. I have had yeast infections in the past and OTC medications don't work. Can I get Diflucan?+ 06/19 @ 9:28 Message left on the patient's voicemail to call back * Telephone Encounter - Awilda Fang RN - 06/15/2011 1012 EST Left message for pt to call back to discuss symptoms she is having. * Telephone Encounter - Stacy Hawkins - 06/15/2011 1005 EST Patient called requesting Diflucan for yeast infection. documented in this encounter Plan of Treatment Not on file documented as of this encounter Visit Diagnoses Not on filedocumented in this encounter Discontinued Medications Medication Sig Discontinue Reason Start Date End Da te fluconazole (DIFLUCAN) 150 mg tablet Take 1 Tab by mouth daily. Reorder 02/27/2011 06/15/2011 documented as of this encounter Care Teams Equity Trader Relationship Specialty Start Date End Date Tamara Neal MD [address] [place] [phone] PCP - General 09/13/08 03/18/13 documented as of this encounter
--- OUTSIDE RECORDS SUMMARY | 2024-02-14 15:27 | XMS_ITS | Encounter Summary ---
Author Organization [facility] Address [address] [place] [address] Care Team Providers Care Research Subject Name Role Phone Tamara Neal MD Primary Care Provider + Reason for Visit * Reason Onset Date Comments Appointment Related 07/26/2011 Encounter Details Date Type Department Care Team ([facility] Contact Info) Description 07/26/2011 Telephone [facility] Rehabilitation Therapy - Medical Office Building [address] [place], [place] [phone] Naima Rodney, PT Appointment Related Social History [...] * Telephone Encounter - Liseth Hankins - 07/26/2011 1020 EDT [facility] ([facility]) [address] [facility] [address] Phone: [phone] Fax: [phone] The patient called to cancel today's appointment due to illness. Liseth Hankins 07/26/2011 10:20 documented in this encounter Plan of Treatment Not on file documented as of this encounter Visit Diagnoses Not on filedocumented in this encounter Care Teams Research Subject Relationship Specialty Start Date End Date Tamara Neal MD [address] [place] [phone] PCP - General 09/13/08 03/18/13 documented as of this encounter
--- OUTSIDE RECORDS SUMMARY | 2024-02-14 15:27 | XMS_ITS | Encounter Summary ---
Author Organization [facility] Address [address] [place] [address] Care Team Providers Care Chief Architect Name Role Phone Tamara Neal MD Primary Care Provider + Reason for Visit * Reason Comments Back Pain follow up Diabetes Encounter Details Date Type Department Care Team (Late st Contact Info) Description 02/27/2011 16:30 EDT Office Visit [facility] Family Medicine [address] [phone] Tamara Neal MD [address] [place] [phone] LBP (low back pain) (Primary Dx); Type 2 diabetes mellitus without [...] Sign Reading Time Taken Comments Blood Pressure 134/82 02/27/2011 1639 EDT Pulse 76 02/27/2011 1639 EDT Temperature - - Respiratory Rate - - Oxygen Saturation - - Inhaled Oxygen Concentration - - Weight 88.5 kg (195 lb) 02/27/2011 1639 EDT Height 152.4 cm (5') 02/27/2011 1639 EDT Body Mass Index 38.08 02/27/2011 1639 EDT documented in this encounter Patient Instructions * Patient Instructions* Tamara Neal MD - 02/27/2011 16:55 EDT Re-trial Glucotrol 5 mg once daily documented in this encounter Ordered Prescriptions Prescription Sig Dispensed Refills Start Date End Da te fluconazole (DIFLUCAN) 150 mg tablet Take 1 Tab by mouth daily. 1 Each 1 02/27/2011 06/15/2011 HYDROmorphone (DILAUDID) 8 mg tablet Take 1 Tab by mouth every 4 hours as needed. 70 Each 0 04/03/2011 04/10/2011 HYDROmorphone (DILAUDID) 8 mg tablet Take 1 Tab by mouth every 4 hours as needed. 70 Each 0 03/20/2011 02/27/2011 citalopram (CELEXA) 20 mg tablet Take 1 Tab by mouth daily. 30 Tab 2 02/27/2011 06/12/2011 HYDROmorphone (DILAUDID) 8 mg tablet Take 1 Tab by mouth every 4 hours as needed. 70 Each 0 03/06/2011 02/27/2011 documented in this encounter Progress Notes * Tamara Neal MD - 03/03/2011 1740 EDT S: Here to f/u on diabetes and chronic LBP and left hip pain Recent HgA1C down slightly to 8.6. Tolerating increased dose ACTOS 30 mg daily Had tried low dose Glipizide and developed vomiting and nausea, willing to try again. On Metformin already and int gets diarrhea Is noting some increased perineal/vaginal itching. NO white vaginal discharge Backpain not surgical fix. LS spine MRI did not show significant disease except at L4-L5: There is global disc bulge with a small left foraminal disc herniation. Mild facet degeneration is present. There is moderate left neuroforaminal stenosis Recent eval with Dr. Diamond (02/26) who feels symptoms more related to left hip pain He helped arrange left hip (intra-articular injection under anesthesia Still Using Dilaudid 8 mg 5 tabs daily (#70 every 2 weeks) O: BP 134/82 Pulse 76 Ht 152.4 cm (60) Wt 88.451 kg (195 lb) BMI 38.08 kg/m2 Gen - well INAD A/P Diabetes - not controlled Trial Glipizide 5 mg once daily in addition to Metformin 1000 mg bid and ACTOS 30 mg once daily that she is already on For likely perineal yeast oral Diflucan LBP/Left hip pain Appreciate both Dr. diamond and Dr. Moffett help and input Await left hip injection through [facility] WIll con't Dilaudid 8 mg #5 tabs daily for now Hope to attempt weaning if hip injection provides relief F/u 6 weeks or sooner prn documented in this encounter Plan of Treatment Not on file documented as of this encounter Visit Diagnoses Diagnosis LBP (low back pain)- Primary Lumbago Type 2 diabetes mellitus without (mention of) complications Type II or unspecified type diabetes mellitus without mention of complication, not stated as uncontrolled documented in this encounter Discontinued Medications Medication Sig Discontinue Reason Start Date End Da te HYDROmorphone (DILAUDID) 8 mg tablet Take 1 Tab by mouth every 4 hours as needed. Reorder 02/20/2011 02/27/2011 HYDROmorphone (DILAUDID) 8 mg tablet Take 1 Tab by mouth every 4 hours as needed. Reorder 03/06/2011 02/27/2011 HYDROmorphone (DILAUDID) 8 mg tablet Take 1 Tab by mouth every 4 hours as needed. Reorder 03/20/2011 02/27/2011 documented as of this encounter Care Teams Chief Architect Relationship Specialty Start Date End Date Tamara Neal MD [address] [place] [phone] PCP - General 09/13/08 03/18/13 documented as of this encounter
--- OUTSIDE RECORDS SUMMARY | 2024-02-14 15:27 | XMS_ITS | Encounter Summary ---
Author Organization [facility] Address [address] [place] [address] Care Team Providers Care Distribution Engineering Technologist Name Role Phone Tamara Neal MD Primary Care Provider + Reason for Visit * Reason Comments Hyperlipidemia Encounter Details Date Type Department Care Team (Late st Contact Info) Description 07/31/2011 17:00 EDT Office Visit [facility] [address] [address] Tamara Neal MD [address] [place] [phone] Type 2 diabetes mellitus without (mention of) complications; LBP (low back pain); Left hip pain [...] Sign Reading Time Taken Comments Blood Pressure 134/70 07/31/2011 1701 EDT Pulse 76 07/31/2011 1701 EDT Temperature 36.7 ??C (98 ??F) 07/31/2011 1701 EDT Respiratory Rate 12 07/31/2011 1701 EDT Oxygen Saturation - - Inhaled Oxygen Concentration - - Weight 83.9 kg (185 lb) 07/31/2011 1701 EDT Height - - Body Mass Index 36.13 02/27/2011 1639 EDT documented in this encounter Ordered Prescriptions Prescription Sig Dispensed Refills Start Date End Da te HYDROmorphone (DILAUDID) 8 mg tablet Take 1 Tab by mouth 4 times daily as needed. No More than 4 tabs daily 56 Each 0 08/21/2011 09/04/2011 HYDROmorphone (DILAUDID) 8 mg tablet Take 1 Tab by mouth 4 times daily as needed. No More than 4 tabs daily 56 Each 0 08/07/2011 07/31/2011 documented in this encounter Progress Notes * Tamara Neal MD - 08/05/2011 1421 EDT S: here to f/u on LBP, hip pain as well as DM and cholesterol Has appt for hip injection later this month Still using Dilaudid 8 mg 4 tabs daily Denies diversion or recreational use DM better with Lantus, no low sugars. Also on Metformin 1000 mg bid and ACTOS 30 mg as well HGA1C down to 7.5 last month Bruno Zocor 20 mg daily Will be due for repeat FLP and LFTs in another 3 weeks O: BP 134/70 Pulse 76 Temp(Src) 36.7 ??C (98 ??F) (Oral) Resp 12 Wt 83.915 kg (185 lb) Gen - well INAD A/P Hip pain and LBP - await ortho diagnostic injection Will continue Dilaudid 8 mg 4 TABS daily for now Plan to wean when can DM - stable Continue Lantus and other Rx as above Hyperlipidemia - bruno statin LFTs and FLP in few weeks F/u 4 weeks or sooner prn documented [...] No More than 4 tabs daily Reorder 07/24/2011 07/31/2011 HYDROmorphone (DILAUDID) 8 mg tablet Take 1 Tab by mouth 4 times daily as needed. No More than 4 tabs daily Reorder 08/07/2011 07/31/2011 documented as of this encounter Care Teams Distribution Engineering Technologist Relationship Specialty Start Date End Date Tamara Neal MD [address] [place] [address] [phone] PCP - General 09/13/08 03/18/13 documented as of this encounter
--- OUTSIDE RECORDS SUMMARY | 2024-02-14 15:27 | XMS_ITS | Encounter Summary ---
Author Organization [facility] Address [address] [place] [address] Care Team Providers Care Modeling Manager Name Role Phone Tamara Neal MD Primary Care Provider + Reason for Visit * Reason Comments Leg Pain Left Encounter Details Date Type Department Care Team (Latest Contact Info) Description 02/22/2011 9:00 EDT Office Visit [facility] Rehabilitation Therapy [address] [address] Joni Lau MD [address] [place] [phone] LBP (low back pain); Left hip pain [...] as of this encounter Progress Notes * Joni Lau MD - 02/22/2011 0947 EDT This office note has been dictated. documented in this encounter Procedure Notes * Joni Lau MD - 02/23/2011 0834 EDT PHYSICAL MEDICINE / REHABILITATION ELECTRODIAGNOSTIC MEDICINE CONSULTATION SERVICE DATE: 02/22/2011 ATTENDING PHYSICIAN: Joni Lau MD REQUESTING GREEN PARTY: BASILIO Blackman PRIMARY CARE PHYSICIAN: Tamara Neal MD HISTORY: The patient is a pleasant young woman who is here today at the request of Pieter Chacko. She has had a problem with pain in her left low back and left hip and gluteal area now for quite some time. She states that she has literally had 7 injections in her back and 1 in her left hip. I do not have those records. Her onset of pain was 07/2009. Along the way she had a lumbar and an MRI of her hip, both showing some pathology. She is here today at the request of Pieter Chacko for investigation as to the cause of her pain. For past medical history, problem list and medication list I refer to her [facility] intake. She is a diabetic and her blood sugars have been very high, most recent hemoglobin A1c over 9. FAMILY HISTORY: Positive for diabetes. SOCIAL HISTORY: She is a nonsmoker, nondrinker. REVIEW OF SYSTEMS: Please see intake format. This is reviewed with the patient and signed. OBJECTIVE: She is 5 feet 1 inch, 200 pounds. She is alert and oriented x3. She walks with a slightly antalgic gait on her left leg. Her thigh and calf circumferences are symmetric. Peripheral pulses are intact. She is hyporeflexic at the knee jerk, ankle jerks. With facilitation she does show both reflexes bilaterally. Motor testing shows no focal weakness. She does have pain in the left hip with internal, external rotation and flexion and extension at the hip. There is some focal tenderness in the midleft lumbar paraspinal area and into the posterior and lateral process area. In order to investigate the status of her proximal and peripheral nerves, the plan is to perform electrodiagnostics. NERVE CONDUCTION STUDY: Nerve Distal Latency Evoked Nerve Conduction Comments (NI<3.6) Response Velocity Amplitude Right peroneal motor 4.4 6.3 millivolts, F-wave 49.8 Used for comparison Left peroneal motor 4.5 msec 5.8 millivolts, F-wave 48.9 Left tibial F-wave 49.6 EMG REPORT: A very detailed study was performed. Muscles examined included the left lumbar paraspinals, the gluteus medius, gluteus frandy, tensor fasciae latae, hamstring, anterior tibialis, iliopsoas, quadriceps, adductor group, extensor hallucis longus, peroneus longus, medial and lateral gastrocnemius and soleus. FINDINGS: There was normal insertional activity in all muscles tested. All muscles showed electrical silence at rest and recruitment patterns proportionate to effort. IMPRESSION: 1. This is a normal examination with no evidence of lumbar radiculopathy. 2. This is a difficult call with respect to what I feel are the major pain generators. Her physicalexam does suggest both left hip pathology, with a known labral tear, and possible lumbar radiculitis, probably secondary to the annular tear and disk protrusion. Her story, however, is that she has had only minimal to no improvement with injection into the hip and transforaminal injection. I had a lengthy discussion with her regarding the challenges of trying to determine the major pain generator or generators. We discussed some of the standard treatment options and issues, and all of her questions were answered. Electronically Signed by Joni Lau MD 02/27/2011 09:10 Joni Lau MD - Joni Lau MD A - VLADIMIR Job ID: SM Doc ID: [id number] Ext Doc ID: [id number] cc: MD Marcin Mcwilliams PA documented in this encounter Plan of Treatment Not on file documented as of this encounter Visit Diagnoses Diagnosis LBP (low back pain) Lumbago Left hip pain Pain in joint, pelvic region and thigh documented in this encounter Care Teams Modeling Manager Relationship Specialty Start Date End Date Tamara Neal MD [address] [place] [phone] PCP - General 09/13/08 03/18/13 documented as of this encounter
--- OUTSIDE RECORDS SUMMARY | 2024-02-14 15:27 | XMS_ITS | Encounter Summary ---
Author Organization [facility] Address [address] [place] [address] Care Team Providers Care Conveyor Monitor Name Role Phone Tamara Neal MD Primary Care Provider + Reason for Visit * Reason Onset Date Comments Headache 12/11/2010 Blood Sugar Problem 12/11/2010 Encounter Details Date Type Department Care Team (Late st Contact Info) Description 12/11/2010 Telephone [facility] Family Medicine - [address] [phone] Tamara Neal MD [address] [place] [phone] Headache; Blood Sugar Problem Social History Tobacco Use Types Packs/Day [...] Telephone Encounter - Awilda Fang RN - 12/11/2010 7310 EDT Pt notified of Dr. Neal's response (see 12/11/10 telephone encounter). She states she continues with her headache which she doesn't know if it is a migraine or not. She states she has taken tylenoland advil, and is also on a narcotic. She has increased her fluid intake. She will follow up with Dr. Neal tomorrow (12/12/10). Instructed pt to go to WICC/ED if symptoms worsen or change prior to the appointment. The patient indicates understanding of these issues and agrees with the plan. * Telephone Encounter - Tamara Neal MD - 12/11/2010 1524 EDT 12/12 (tomorrow) is fine * Telephone Encounter - Latesha Naqvi LPN - 12/11/2010 0952 EDT Patient is finding that whenever she is getting a headache she has been testing her sugars and theyhave been in the 300's to 400's. Feels a little light headed and urinating frequently. Has not changed any medications recently, says she is both light and sound sensitive--has appt with you on 12/12--didn't know if it was OK to wait until that visit or if we should try to get her in sooner. * Telephone Encounter - Latesha Naqvi LPN - 12/11/2010 0915 EDT 9:15 LM to call back * Telephone Encounter - Almita Ponce - 12/11/2010 0830 EDT Patient has been having a headache for two days, her sugar readings have been in the 300 and 400's. She states she has also been urinating a lot documented in this encounter Plan of Treatment Not on file documented as of this encounter Visit Diagnoses Not on filedocumented in this encounter Care Teams Conveyor Monitor Relationship Specialty Start Date End Date Tamara Neal MD [address] [place], [place] [phone] PCP - General 09/13/08 03/18/13 documented as of this encounter
--- OUTSIDE RECORDS SUMMARY | 2024-02-14 15:27 | XMS_ITS | Encounter Summary ---
Author Organization [facility] Address [address] [place] [address] Care Team Providers Care Retail Brand Ambassador Name Role Phone Tamara Neal MD Primary Care Provider + Reason for Visit * Reason Comments Follow-up Left hip injection Encounter Details Date Type Department Care Team (Late st Contact Info) Description 08/03/2011 14:30 EDT Office Visit [facility] Sports Medicine Program - [address] [address] Alberto Moffett MD [address] [place] [phone] Left hip pain (Primary Dx) Social [...] Progress Notes * Alberto Moffett MD - 08/06/2011 1125 EDT Sports Medicine Service [facility] [address] [place] [phone] PROGRESS/FOLLOWUP NOTE - 08/03/2011 PROBLEM: Left hip pain. SUBJECTIVE: Guzman comes in for a scheduled left hip joint injection for diagnostic purposes. OBJECTIVE: No signs of active infection around her left hip region. Under sterile conditions using image guidance, the left hip joint injection was performed with 3 mL of 1% lidocaine and 3 mL 0.5% Marcaine. No immediate complications. ASSESSMENT: Left hip pain. PLAN: Complete the injection worksheet. Follow up with results. Electronically Signed by Alberto Moffett MD 08/09/2011 17:20 Alberto Moffett MD - Alberto Moff[place] [facility] [place]: SM Doc ID: [id number] Ext Doc ID: [id number] cc: Tamara Neal MD * Alberto Moffett MD - 08/03/2011 1418 EDT This office note has been dictated. documented in this encounter Miscellaneous Notes * Scanned Note-Null - STONE SPREADER OPERATOR, SCAN 2 - 08/08/2011 1021 EDT documented in this encounter Plan of Treatment Not on file documented as of this encounter Visit Diagnoses Diagnosis Left hip pain- Primary Pain in joint, pelvic region and thigh documented in this encounter Care Teams Retail Brand Ambassador Relationship Specialty Start Date End Date Tamara Neal MD [address] [place] [phone] PCP - General 09/13/08 03/18/13 documented as of this encounter
--- OUTSIDE RECORDS SUMMARY | 2024-02-14 15:27 | XMS_ITS | Encounter Summary ---
Author Organization [facility] Address [address] [place] [address] Care Team Providers Care Manager Fire Name Role Phone Tamara Neal MD Primary Care Provider + Reason for Visit * Reason Onset Date Comments Appointment Related 06/13/2011 Encounter Details Date Type Department Care Team (Late st Contact Info) Description 06/13/2011 Telephone [facility] Rehabilitation Therapy - Medical Office Building [address] [place], [place] [phone] Naima Rodney, PT Appointment Related Social History [...] encounter Miscellaneous Notes * Telephone Encounter - Nhi Liseth Tyron - 06/13/2011 1441 EST MEDICAL OFFICE BUILDING ([facility]) [address] [facility] [place] [address] Phone: [phone] Fax: [phone] Telephone Intake Information for Scheduling NEW Patients for Therapy Script/referral (Patient has order and will bring) Primary Insurance: [place] If Workers' Comp or Motor Vehicle: Case/claim info entered into IDX? Yes WORKER'S COMP CASE INFORMATION: Case: [id number] Patient: CARLINEHILDA W/C Carrier: [facility] Employer: W/C Ovrd: [facility] Emp Ovrd: [employer] W/C Addr L1: Emp Addr L1: W/C Addr L2: [address] Emp Addr L2: [address] [facility],State: [facility],St: [place], [place] Zip Code: [address] Emp Zip: [address] W/C Emp W/C Claim #: Emp Status Code: UNKNOWN Notes/other: Patient is being referred for shoulder injury (work related) DOI: 06/11/11. Tea at [facility] will fax office notes, as Charlee Middletonrobert from [facility] has not received the claim as of yet. The patient will check in early to complete paperwork. Liseth Hankins 06/13/2011 documented in this encounter Plan of Treatment Not on file documented as of this encounter Visit Diagnoses Not on filedocumented in this encounter Care Teams Manager Fire Relationship Specialty Start Date End Date Tamara Neal MD [address] [place] [phone] PCP - General 09/13/08 03/18/13 documented as of this encounter
--- OUTSIDE RECORDS SUMMARY | 2024-02-14 15:27 | XMS_ITS | Encounter Summary ---
Author Organization [facility] Address [address] [place] [address] Care Team Providers Care Phlebotomist Lab Assistant Name Role Phone Tamara Neal MD Primary Care Provider + Encounter Details Date Type Department Care Team (Latest Contact Info) Description 06/14/2011 10:50 EST - 06/14/2011 23:59 [facility] Hospital Encounter [facility] - Medical Office Building [phone] Tamara Neal MD [address] [place] [phone] Discharge Disposition: Home or Self Care Social [...] mouth daily. 1 Each 1 02/27/2011 06/15/2011 fluticasone (FLONASE) 50 mcg/Actuation nasal sprayIndications:Pelon rgic rhinitis 1 [place] by Nasal route daily. 1 Bottle 2 [...] on filedocumented in this encounter Care Teams Phlebotomist Lab Assistant Relationship Specialty Start Date End Date Tamara Neal MD [address] [place] [phone] PCP - General 09/13/08 03/18/13 documented as of this encounter
--- OUTSIDE RECORDS SUMMARY | 2024-02-14 15:27 | XMS_ITS | Encounter Summary ---
Author Organization [facility] Address [address] [place] [address] Care Team Providers Care Liquor Maker Name Role Phone Tamara Neal MD Primary Care Provider + Encounter Details Date Type Department Care Team (Latest Contact Info) Description 08/02/2011 12:30 EDT - 08/02/2011 23:59 EDT Hospital Encounter [facility] - Medical Office Building [phone] Tamara Neal MD [address] [place] [phone] Discharge Disposition: Home or Self Care Social [...] 50 mcg/Actuation nasal sprayIndications:Pelon rgic rhinitis 1 [place] by Nasal route daily. 1 Bottle 2 [...] on filedocumented in this encounter Care Teams Liquor Maker Relationship Specialty Start Date End Date Tamara Neal MD [address] [place] [phone] PCP - General 09/13/08 03/18/13 documented as of this encounter
--- OUTSIDE RECORDS SUMMARY | 2024-02-14 15:27 | XMS_ITS | Encounter Summary ---
Author Organization [facility] Address [address] [place] [address] Care Team Providers Care Hand Paint Mixer Name Role Phone Tamara Neal MD Primary Care Provider + Encounter Details Date Type Department Care Team (Late st Contact Info) Description 07/02/2011 Phlebotomy Only [facility] [address] [place] [address] Hide Spreader, Outpatient Type 2 diabetes mellitus without (mention of) [...] Date/Time Associated Diagnosis Comments HEMOGLOBIN A1C Routine 07/02/2011 12:30 EST Type 2 diabetes mellitus without (mention of) complications LIPID PROFILE (INCLUDES CHOLESTEROL, TRIGLYCERIDES, HDL, LDL) Routine 07/02/2011 12:30 EST Type 2 diabetes mellitus without (mention of) complications COMPREHENSIVE METABOLIC PANEL (CMP) Routine 07/02/2011 12:30 EST Type 2 diabetes mellitus without (mention of) complications documented in this encounter Results * (ABNORMAL) COMPREHENSIVE METABOLIC PANEL (CMP) (07/02/2011 12:30 EST) Pathologist [facility] Potassium 4.3 3.5 - 5.0 mEq/L [facility] Sodium 140 136 - 145 mEq/L [facility] Chloride 101 96 - 110 mEq/L [facility] CO2 27 24 - 32 mEq/L [facility] Total Alkaline Phosphatase 74 38 - 126 U/L [facility] Bilirubin, Total 0.8 0.2 - 1.3 [...] Glucose, Serum 88 70 - 100 mg/dl [facility] Fasting? Yes IAM GONZALES Blood specimen (specimen) 07/02/2011 12:30 EST 07/02/2011 13:50 EST Tamara Neal MD CHEMISTRY & BLOO D GAS ORDERABLES Performing Organization Address City/State/[facility] Co de Phone Number [facility] [address] [place] [address] * LIPID PROFILE (INCLUDES CHOLESTEROL, TRIGLYCERIDES, HDL, LDL) (07/02/2011 12:30 EST) Pathologist [facility] Cholesterol 226 mg/dl [facility] Comment: Desirable:<200 Borderline High:200-239 High:>hb=463 Triglycerides 295 mg/dl [facility] Comment: Normal:<150 Borderline High:150-199 High:200-499 Very High:>az=994 HDL 46 mg/dl [facility] Comment: Low:<40 Normal:40-60 Desirable: >60 LDL, Calculated 121 mg/dl [facility] Comment: Optimal:<100 Near Optimal:100-129 Borderline High:130-159 High:160-189 Very High:>vm=424 Chol/HDL Ratio 4.9 [facility] Fasting? Yes [facility] Blood specimen (specimen) 07/02/2011 12:30 EST 07/02/2011 13:50 EST Tamara Neal MD CHEMISTRY & BLOO D GAS ORDERABLES Performing Organization Address [facility] de Phone Number [facility] [address] [place] [address] * HEMOGLOBIN A1C (07/02/2011 12:30 EST) Hemoglobin A1C 7.2 % [facility] Comment: Reference Range: <5.7% Normal 5.7-6.4% Increased risk for diabetes =>6.5% Diagnostic for diabetes (if confirmed) The A1c goal for non adults in general is <7%. The A1c goal for selected patients may be significantly lower than 7% if this can be achieved without significant hypoglycemia or other adverse effects of treatment. Est Avg Glucose 160 mg/dl [facility] Comment: eAG represents the A1c result expressed as average glucose in mg/dl. Blood specimen (specimen) 07/02/2011 12:30 EST 07/02/2011 13:50 EST Tamara Neal MD CHEMISTRY & BLOO D GAS ORDERABLES Performing Organization Address [facility] de Phone Number [facility] [address] [place] [address] documented in this encounter Visit Diagnoses Diagnosis Type 2 diabetes mellitus without (mention of) complications Type II or unspecified type diabetes mellitus without mention of complication, not stated as uncontrolled documented in this encounter Care Teams Hand Paint Mixer Relationship Specialty Start Date End Date Tamara Neal MD [address] [place] [phone] PCP - General 09/13/08 03/18/13 documented as of this encounter
--- OUTSIDE RECORDS SUMMARY | 2024-02-14 15:27 | XMS_ITS | Encounter Summary ---
Author Organization [facility] Address [address] [place] [address] Care Team Providers Care Manager Client Support Name Role Phone Tamara Neal MD Primary Care Provider + Encounter Details Date Type Department Care Team (Latest Contact Info) Description 08/07/2011 14:46 EDT - 08/07/2011 23:59 EDT Hospital Encounter [address] [address] Haim Esteban, DO [address] [place] [phone] Discharge Disposition: Auto Discharge Social History Tobacco [...] 50 mcg/Actuation nasal sprayIndications:Pelon rgic rhinitis 1 [place] by Nasal route daily. 1 Bottle 2 [...] Auto Discharge Home documented in this encounter Procedure Notes * Judah Quach, - 08/07/2011 1618 EDT IR Procedure Note Procedure: Fluoroscopy guided left shoulder injection for MR arthrogram Date Performed: 08/07/2011 Radiologist/Activities Director Scouting(s): Marlon Dawkins MD/SAE Linder Sedation/Anesthesia: 1% lidocaine Time Out: A time-out was completed prior to procedure verifying correct patient, procedure, site, positioning, and special equipment if applicable. Estimated Blood Loss: Unless otherwise noted, there was no blood loss, specimens removed, cultures obtained, or drains retained. Specimens: none Fluoroscopy Time: <1min Contrast Volume: 2 cc Isovue 300 and 9 cc MRI contrast ( a mix of 1:200 solution of gadolinium and sterile saline) Complications: none Condition: good Post Procedure Diagnosis: Left shoulder pain Findings: The risks, benefits and alternatives were explained to the patient and informed consent was obtained. The left shoulder was prepped and draped following sterile procedure and local anesthesia was administered. A 22g spinal needle was placed into the glenohumeral joint using an anterior approach. 2cc of sterile isovue 300 was injected to confirm placement. This was followed by a 9cc injection of the sterile MRI contrast. The patient tolerated the procedure well and was brought to MRI for imaging. Recommendations: Follow up with MRA results JUDAH QUACH RA 08/07/2011 16:35 documented in this encounter Miscellaneous Notes * Scanned Note-Null - BRUSH PAINTER, SCAN 2 - 08/14/2011 1440 EDT documented in this encounter Plan of Treatment Not on file documented as of this encounter Visit Diagnoses Not on filedocumented in this encounter Care Teams Manager Client Support Relationship Specialty Start Date End Date Tamara Neal MD [address] [place] [phone] PCP - General 09/13/08 03/18/13 documented as of this encounter
--- OUTSIDE RECORDS SUMMARY | 2024-02-14 15:27 | XMS_ITS | Encounter Summary ---
Author Organization [facility] Address [address] [place] [address] Care Team Providers Care Automation Tender Name Role Phone Tamara Neal MD Primary Care Provider + Reason for Visit * Reason Onset Date Comments Results 01/11/2011 Encounter Details Date Type Department Care Team (Late st Contact Info) Description 01/11/2011 Telephone [facility] Spine Program - [address] [place] [address] Marcin Chacko PA-[facility] [employer] [facility] [place] [phone] Results Social History Tobacco Use Types Packs/Day [...] Telephone Encounter - Marcin Chacko PA - 01/11/[address] Diamond had an opportunity to review this case and suggested obtaining an EMG then setting up a surgical consult. documented in this encounter Plan of Treatment Not on file documented as of this encounter Visit Diagnoses Diagnosis Lumbar radiculopathy- Primary Thoracic or lumbosacral neuritis or radiculitis, unspecified documented in this encounter Care Teams Automation Tender Relationship Specialty Start Date End Date Tamara Neal MD [address] [place] [phone] PCP - General 09/13/08 03/18/13 documented as of this encounter
--- OUTSIDE RECORDS SUMMARY | 2024-02-14 15:27 | XMS_ITS | Encounter Summary ---
Author Organization [facility] Address [address] [place] [address] Care Team Providers Care Snapper On Name Role Phone Tamara Neal MD Primary Care Provider + Reason for Visit * Reason Comments Diabetes Follow up Hip Pain Left hip pain Medications Refill Encounter Details Date Type Department Care Team (Late st Contact Info) Description 01/09/2011 17:00 EDT Office Visit [facility] Medicine [address] [address] Tamara Neal MD [address] [place] [phone] Type 2 diabetes mellitus without (mention of) complications; Left hip pain; LBP (low back pain) Social History Tobacco Use Types Packs/Day Years [...] Reading Time Taken Comments Blood Pressure 126/80 01/09/2011 1727 EDT Pulse 80 01/09/2011 1727 EDT Temperature 36.2 ??C (97.1 ??F) 01/09/2011 1727 EDT Respiratory Rate - - Oxygen Saturation - - Inhaled Oxygen Concentration - - Weight 90.7 kg (200 lb) 01/09/2011 1727 EDT Height - - Body Mass Index 37.79 01/04/2011 1427 EDT documented in this encounter Ordered Prescriptions Prescription Sig Dispensed Refills Start Date End Da te HYDROmorphone (DILAUDID) 8 mg tablet Take 1 Tab by mouth every 4 hours as needed. 70 Each 0 01/23/2011 02/06/2011 HYDROmorphone (DILAUDID) 8 mg tablet Take 1 Tab by mouth every 4 hours as needed. 70 Each 0 01/09/2011 01/09/2011 documented in this encounter Progress Notes * Tamara Neal MD - 01/12/2011 0914 EDT S: here to f/u on diabetes as well as left hip pain/LBP Is followed by ortho spine and Lower ext clinic Await Dr. Diamond's opinion regarding back procedure (disc replacement) Using Dilaudid 8 mg 5 tabls daily, #70 tabs for 2 weeks Sugars remain high. 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 [employer] O: BP 126/80 Pulse 80 Temp(Src) 36.2 ??C (97.1 ??F) (Oral) Wt 90.719 kg (200 lb) Gen - well INAD A/P Diabetes - HgA1C today con't Actos 30 mg daily plus Metformin 1000 mg bid May take another 6-7 weeks for increased dose to have full affect LBP - await ortho spine recs Slight inconsistent symptoms con't Dilaudid as she has been doing for now F/u 1 mos or sooner prn documented in this encounter Plan of Treatment Not on file documented as of this encounter Procedures Procedure Name Priority Date/Time Associated Diagnosis Comments URINE [id number] NE RATIO (ACR) Routine 01/09/2011 17:50 EDT Type 2 diabetes mellitus without (mention of) complications HEMOGLOBIN A1C Routine 01/09/2011 17:48 EDT Type 2 diabetes mellitus without (mention of) complications documented in this encounter Results * MICROALBUMIN (01/09/2011 17:50 EDT) Creatinine, Urn [place] 39.7 mg/dl IAM GONZALES Ur Albumin mg/dl <0.2 <1.9 mg/dl IAM GONZALES Ur Alb ug/mg Crea Unable to calculate ug/mg Crea result. Normal: ??<30 ug/mg Creat Microalbuminu jacy: ??30-300 ug/mg Creat Clinical albuminuria: ??>300 ug/mg Creat ug/mg Crea IAM GONZALES Urine specimen (specimen) 01/09/2011 17:50 EDT 01/10/2011 12:21 EDT Tmaara Neal MD CHEMISTRY & BLOO D GAS ORDERABLES Performing Organization Address [facility] de Phone Number [facility] [address] [place] [address] * HEMOGLOBIN A1C (01/09/2011 17:48 EDT) Hemoglobin A1C 8.7 % [facility]AYME G[facility]ZAL[facility] Comment: Reference Range: <5.7% Normal 5.7-6.4% Increased risk for diabetes =>6.5% Diagnostic for diabetes (if confirmed) ?? The A1c goal for non adults in general is <7%. ?? The A1c goal for selected patients may be significantly lower than 7% if this can be achieved without significant hypoglycemia or other adverse effects of treatment. Est Avg Glucose 203 mg/dl [facility] Comment:eAG represents the A 1c result expressed as average glucose in mg/dl. Blood specimen (specimen) 01/09/2011 17:48 EDT 01/10/2011 12:07 EDT Tamara Neal MD CHEMISTRY & BLOO D GAS ORDERABLES Performing Organization Address [facility] de Phone Number [facility] [address] [place] [address] documented in this encounter Visit Diagnoses Diagnosis Type 2 diabetes mellitus without (mention of) complications Type II or unspecified type diabetes mellitus without mention of complication, not stated as uncontrolled Left hip pain Pain in joint, pelvic region and thigh LBP (low back pain) Lumbago documented in this encounter Discontinued Medications Medication Sig Discontinue Reason Start Date End Da te HYDROmorphone (DILAUDID) 8 mg tablet Take 1 Tab by mouth every 4 hours as needed. Reorder 12/26/2010 01/09/2011 HYDROmorphone (DILAUDID) 8 mg tablet Take 1 Tab by mouth every 4 hours as needed. Reorder 01/09/2011 01/09/2011 documented as of this encounter Care Teams Snapper On Relationship Specialty Start Date End Date Tamara Neal MD [address] [place] [phone] PCP - General 09/13/08 03/18/13 documented as of this encounter
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
--- OUTSIDE RECORDS SUMMARY | 2024-02-14 15:27 | XMS_ITS | Encounter Summary ---
Author Organization [facility] Address [address] [place] [address] Care Team Providers Care Hand Box Folder Name Role Phone Tamara Neal MD Primary Care Provider + Reason for Referral * Consult (Routine) - Closed Specialty Diagnoses / Procedures Referred By Savannah ashton Referred To Contact Anesthesiology Diagnoses Lumbago Roya Saravia MD [address] [place] [phone] Referral ID Status Reason Start Date Expiration Date V isits Requested Visits Authorized [id number] Closed Specialty Services Required 02/26/2011 1 1 Question Answer Reason for Request: left buttock and groin pain Comments Left hip intra articular injection with local anesthetic only Reason for Visit * Reason Comments Back Pain Encounter Details Date Type Department Care Team (Late st Contact Info) Description 02/26/2011 8:00 EDT Office Visit [facility] [place] [address] [place] [address] Roya Saravia MD [address] [place] [phone] Lumbago (Primary Dx) Social History Tobacco Use Types [...] - - Weight 90.3 kg (199 lb) 02/26/2011 08 EDT Height 152.4 cm (5') 02/26/2011 08 EDT Body Mass Index 38.86 02/26/2011 0837 EDT documented in this encounter Progress Notes * Roya Saravia MD - 02/26/2011 0952 EDT This office note has been dictated. ROYA SARAVIA MD documented in this encounter Consult Notes * Roya Saravia MD - 02/28/2011 1135 EDT [facility] [address] [place] [phone] CONSULTATION - 02/26/2011 PROBLEM: 1. 80% low back, 20% left groin and thigh pain. 2. Pct-vykzygu-psmkwsdhk diabetes. 3. A ten pack year smoking history. a. Smoking cessation 2008. 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 She notes the pain in her buttock and thigh is there all the time. The groin pain comes whenever she moves or twists just right. Symptoms are increased with sitting and walking, improved by changing position.She has undergone treatment with physical therapy, multiple lumbar injections, epidurals, medial facet blocks, SI blocks all with no change in symptoms. Multiple medications, chiropractic treatment and acupuncture with no long lasting relief. She notes the pain in her left groin, which comes on with walking has been occurring over the last six months. She denies fevers, chills, night sweats, weight loss or loss of bowel or bladder control. PAST MEDICAL HISTORY: No known drug allergies. SOCIAL HISTORY: Patient is a nonsmoker, having quit in 2008. She is with 2 children. 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 OBJECTIVE: Alert, oriented, very cooperative woman, no Farhana signs. Spine is nontender. Buttock nontender, no pain over her greater trochanter. Sensation is intact to light touch and proprioception, 5/5 all lower extremity muscle groups, 1+ knee, 1+ ankle symmetrically. Flexion of the hip to 90 degrees produces buttock pain. Vicenta's maneuver produces groin pain. Flexion, adduction, internal rotation produces buttock discomfort. DIAGNOSTIC DATA: X-rays, AP, lateral, flexion/extension lateral lumbar spine films show well preserved disk space heights, vertebral body alignment is normal, no evidence of any abnormal angulation or translation in the coronal or sagittal plane. MRI shows normal disk hydration at all levels, no disk herniation. She has a minor bulge on the left L4-5 foramen, but does not displace the L4 nerve root, causes minimal changes in the foramen itself. EMG shows no evidence of electrophysiologic abnormalities. ASSESSMENT: Woman with some buttock, leg and groin pain. I certainly do not see any surgically correctable lesion here. I think she has minor bulge in the annulus at L4-5, but no distinct neural impingement or displacement, her symptoms potentially could be coming for her hip, although they do not appear classic for that, but I would defer to Dr Moffett regarding it. I spoke with Dr Moffett on the phone and he suggested that we go through with an intraarticular hip injection with local anestheticonly, which I explained to the patient and depending on the results of that, I would recommend a interdisciplinary evaluation for a work hardening type program. PLAN: 1. [facility] for left hip intraarticular injection with local only. 2. Follow up with Dr Moffett regarding the results of that test. Electronically Signed by Roya Saravia MD 02/28/2011 14:02 Roya Saravia MD - Roya Saravia MD - JG Job ID: SM Doc ID: [id number] Ext Doc ID: [id number] cc: documented in this encounter Plan of Treatment Scheduled Referrals Name Type Priority Associated Diagnoses Order Schedule AMB CONSULT ANESTHESIOLOGY Outpatient Referral Routine Lumbago Ordered: 02/26/2011 documented as of this encounter Visit Diagnoses Diagnosis Lumbago- Primary documented in this encounter Care Teams Hand Box Folder Relationship Specialty Start Date End Date Tamara Neal MD [address] [place] [phone] PCP - General 09/13/08 03/18/13 documented as of this encounter
--- OUTSIDE RECORDS SUMMARY | 2024-02-14 15:27 | XMS_ITS | Encounter Summary ---
Author Organization [facility] Address [address] [place] [id number] Care Team Providers Care Pipe And Test Supervisor Name Role Phone Tamara Neal MD Primary Care Provider + Reason for Visit * Reason Comments Diabetes 1 mo follow up Back Pain Encounter Details Date Type Department Care Team (Late st Contact Info) Description 02/06/2011 16:45 EDT Office Visit [facility] Family Medicine [address] [phone] Tamara Neal MD [address] [place] [phone] Type 2 diabetes mellitus without (mention of) complications; Left hip pain; LBP (low back pain); Flu vaccine need; Chronic pain syndrome Social History Tobacco Use Types Packs/Day Years [...] Sign Reading Time Taken Comments Blood Pressure 122/70 02/06/2011 1643 EDT Pulse 60 02/06/2011 1640 EDT Temperature - - Respiratory Rate - - Oxygen Saturation - - Inhaled Oxygen Concentration - - Weight 91.2 kg (201 lb) 02/06/2011 1640 EDT Height 152.4 cm (5') 02/06/2011 1640 EDT Body Mass Index 39.26 02/06/2011 1640 EDT documented in this encounter Ordered Prescriptions Prescription Sig Dispensed Refills Start Date End Da te HYDROmorphone (DILAUDID) 8 mg tablet Take 1 Tab by mouth every 4 hours as needed. 70 Each 0 02/20/2011 02/27/2011 cyclobenzaprine (FLEXERIL) 10 mg tabletIndications:Chronic pain syndrome Take 1 Tab by mouth 2 times daily as needed for Muscle Spasms. 60 Tab 2 02/06/2011 06/12/2011 HYDROmorphone (DILAUDID) 8 mg tablet Take 1 Tab by mouth every 4 hours as needed. 70 Each 0 02/06/2011 02/06/2011 metformin (GLUCOPHAGE) 1,000 mg tablet Take 1 Tab by mouth 2 times daily. 180 Tab 3 02/06/2011 11/07/2011 documented in this encounter Progress Notes * Tamara Neal MD - 02/11/2011 1245 EDT S: here to f/u on LBP as well as diabetes For back and hip, is awaiting surgical consult with Dr. Diamond Has seen ortho and ortho spine Has EMG scheduled prior to eval with DR. Diamond Still on chronic Dilaudid 8 mg, 6-7 tabs daily (#35 per week) No significant s/e from this Diabetes - no hypoglycemia symptoms or complications, jonathon Metformin and recent increase of Actos to30 mg daily Last HgA1C still elevated, due for repeat in another 4 weeks or so (full 12-13 weesk after increasing dose O: BP 122/70 Pulse 60 Ht 152.4 cm (60) Wt 91.173 kg (201 lb) BMI 39.26 kg/m2 Gen - well INAD A/P LBP/Hip pain - appreciate ORTHO recs and input For now con't Dilaudid 8 mg 6-7 tabs daiy Goal will be to decrease after surgery (if this does happen) Diabetes - HgA1C in anoth 1 mos Flu vaccine today F/u 1 mos or sooner prn * Awilda Fang RN - 02/06/2011 1711 EDT Influenza vaccine given as ordered by Dr. Neal. documented in this encounter Plan of Treatment Not on file documented as of this encounter Visit Diagnoses Diagnosis Type 2 diabetes mellitus without (mention of) complications Type II or unspecified type diabetes mellitus without mention of complication, not stated as uncontrolled Left hip pain Pain in joint, pelvic region and thigh LBP (low back pain) Lumbago Flu vaccine need Need for prophylactic vaccination and inoculation against influenza Chronic pain syndrome documented in this encounter Discontinued Medications Medication Sig Discontinue Reason Start Date End Da te metformin (GLUCOPHAGE) 1,000 mg tablet Take 1 Tab by mouth 2 times daily. Reorder 02/15/2010 02/06/2011 HYDROmorphone (DILAUDID) 8 mg tablet Take 1 Tab by mouth every 4 hours as needed. Reorder 01/23/2011 02/06/2011 cyclobenzaprine (FLEXERIL) 10 mg tabletIndications:Chroni c pain syndrome Take 1 Tab by mouth 2 times daily as needed for Muscle Spasms. Reorder 11/14/2010 02/06/2011 HYDROmorphone (DILAUDID) 8 mg tablet Take 1 Tab by mouth every 4 hours as needed. Reorder 02/06/2011 02/06/2011 documented as of this encounter Orders Immunization/Injection Count Last Ordered Date First Ordered Date INFLUENZA VACCINE =>3YO SPLIT IM 1 02/07/20 11 documented in this encounter Care Teams Pipe And Test Supervisor Relationship Specialty Start Date End Date Tamara Neal MD [address] [place] [phone] PCP - General 09/13/08 03/18/13 documented as of this encounter
--- OUTSIDE RECORDS SUMMARY | 2024-02-14 15:27 | XMS_ITS | Encounter Summary ---
Author Organization [facility] Address [address] [place] [address] Care Team Providers Care Boss Miner Name Role Phone Tamara Neal MD Primary Care Provider + Reason for Visit * Reason Comments Hip Pain Encounter Details Date Type Department Care Team (Late st Contact Info) Description 12/06/2010 8:30 EDT Office Visit [facility] - [address] [place] [address] Marcin Chacko PA-C [address] [facility] [place] [phone] Low back pain; Lumbar radiculopathy Social History Tobacco Use Types Packs/Day Years [...] as of this encounter Progress Notes * Marcin Chacko PA - 12/06/2010 0900 EDT The patient has persistent back and left hip pain as a result of a 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 She had heard a pop in her back greater than one year ago. Since then, she has had persistent back pain, left hip discomfort with radiation to the posterior thigh to the mid-thigh only now. She has seen Dr Mcdonald on multiple occasions and underwent multiple L4-L5 nerve root impingements. Today, she notes she has undergone an SI injection as well, all without any change in her symptoms. Unfortunately, I do not find the note that she had undergone an SI injection with Dr Mcdonald. Phylicia followed up with Dr Moffett, who felt that she may have a symptomatic labral tear but was not certain that that was and sole source of her discomfort and suggested she be reevaluated at the [facility] for further evaluation. She presents with constant back and hip discomfort with radiation to the groin. It seemed to be worse over the last five to six months and that is when her groin symptoms started. She fell in the shower around that time, but cannot remember any inciting event that would have generated her symptoms and has difficulty standing and walking. Finds little that providesrelief. She has had multiple narcotics with minimal relief. She also underwent a hip injection thatprovided three days relief of her symptoms. She has been in physical therapy last seven months ago.She has seen a chiropractor and undergone acupuncture with no change in her symptoms. On physical exam, her gait is normal, stable toe and heel walk. On inspection of the LS spine thereare no lesions, rashes or hair donnell. When I palpate her right SI joint, she has left iliac crest pain. No pain with axial compression. She does have discomfort in the left hip with axial rotation. Forward flexion is achieved with full range of motion. Lower extremity strength: Left hip flexor 4+/5, otherwise 5/5. Sensation to soft touch diminished medial and lateral left calf, lateral left foot.Reflexes at the left knee is 2, left ankle is 2, right knee is 0, right ankle is 0. Dorsalis pedis is 2, Babinski's downgoing. There is no clonus. In the supine position, straight leg raise produces left hip pain only. Passive motion of the left hip produces groin and hip pain. RADIOGRAPHS: MRI of the LS spine does reveal far lateral disk bulge at L4-5 with left-sided neural foraminal narrowing that is mild. Lumbar films reveal no signs of sacroiliitis. ASSESSMENT: A 35-year-old female with back and left lower extremity symptoms, not clearly concordant with her MRI. She has had multiple injections with little relief of her symptoms, essentially ruling out the lumbar spine as the source of discomfort, but since the patient is considering surgery, Ithink it would be prudent to repeat her lumbar MRI to ensure that there is no impingement of the L4root. PLAN: 1. MRI. 2. Follow up with me post. 3. Follow up with Dr Moffett as scheduled. 4. Activity as tolerated without limitation at least from a spine perspective. I spent greater than 20 minutes with Ms Jean with 20 minutes of our time spent [id number] discussing symptoms, subjective complaints, reviewing her radiographs and discussing her treatment options. documented in this encounter Plan of Treatment Not on file documented as of this encounter Procedures Procedure Name Priority Date/Time Associated Diagnosis Comments MR LUMBAR SPINE WO CONTRAST 12/25/2010 16:57 EDT documented in this encounter Results * MR LUMBAR SPINE WO CONTRAST (12/25/2010 16:57 EDT) Anatomical Region Laterality Modality Other 12/25/2010 16:5 7 EDT 12/26/2010 10:55 EDT Narrative 12/26/2010 10:55 EDT MRI LUMBAR SPINE WITHOUT CONTRAST December 25, 2010 Indication: Low back and left leg pain. Comparison: September 23, 2009. Technique: Sagittal T1, T2 and STIR, axial T1 and T2 and coronal T2 fat-saturated MR images of the lumbar spine were obtained. Findings: Significant scoliotic curvature is not appreciated. No swetha or retrolisthesis is noted. Vertebral body heights are preserved. Marrow signal intensity is unremarkable. Disc space heights are well-maintained. There is slight loss of disc signal at L4-L5 and L5-S1, consistent with early disc degeneration. This is unchanged from the prior study. L1-L2: No disc herniation or spinal stenosis is noted. L2-L3: No disc herniation or spinal stenosis is noted. L3-L4: No disc herniation or spinal stenosis is noted. L4-L5: There is global disc bulge with a small left foraminal disc herniation. Mild facet degeneration is present. There is moderate left neuroforaminal stenosis. L5-S1: Mild facet degeneration is present. The conus terminates normally at L1. Impression: 1. Mild lower lumbar facet degeneration and disc degeneration. 2. Small left paracentral disc herniation at L4-L5 producing left neuroforaminal narrowing. This does not appear significantly changed from the prior study. Procedure Note 12/26/2010 MRI LUMBAR SPINE WITHOUT CONTRAST December 25, 2010 Indication: Low back and left leg pain. Comparison: September 23, 2009. Technique: Sagittal T1, T2 and STIR, axial T1 and T2 and coronal T2 fat-saturated MR images of the lumbar spine were obtained. Findings: Significant scoliotic curvature is not appreciated. No swetha or retrolisthesis is noted. Vertebral body heights are preserved. Marrow signal intensity is unremarkable. Disc space heights are well-maintained. There is slight loss of disc signal at L4-L5 and L5-S1, consistent with early disc degeneration. This is unchanged from the prior study. L1-L2: No disc herniation or spinal stenosis is noted. L2-L3: No disc herniation or spinal stenosis is noted. L3-L4: No disc herniation or spinal stenosis is noted. L4-L5: There is global disc bulge with a small left foraminal disc herniation. Mild facet degeneration is present. There is moderate left neuroforaminal stenosis. L5-S1: Mild facet degeneration is present. The conus terminates normally at L1. Impression: 1. Mild lower lumbar facet degeneration and disc degeneration. 2. Small left paracentral disc herniation at L4-L5 producing left neuroforaminal narrowing. This does not appear significantly changed from the prior study. Marcin Chacko PA-C [facility] ORDERABLES documented in this encounter Visit Diagnoses Diagnosis Low back pain Lumbago Lumbar radiculopathy Thoracic or lumbosacral neuritis or radiculitis, unspecified documented in this encounter Care Teams Boss Miner Relationship Specialty Start Date End Date Tamara Neal MD [address] [place] [phone] PCP - General 09/13/08 03/18/13 documented as of this encounter
--- OUTSIDE RECORDS SUMMARY | 2024-02-14 15:27 | XMS_ITS | Encounter Summary ---
Author Organization [facility] Address [address] [place] [address] Care Team Providers Care Law Writer Name Role Phone Tamara Neal MD Primary Care Provider + Reason for Visit * Reason Comments Back Pain low back pain Encounter Details Date Type Department Care Team (Late st Contact Info) Description 01/04/2011 14:30 EDT Office Visit [facility] Spine Program - [address] [place] [address] Marcin Chacko PA-C [address] [facility] [place] [address] Low back pain; Lumbar radiculopathy [...] - - Weight 90.7 kg (200 lb) 01/04/2011 1427 EDT Height 154.9 cm (5' 1) 01/04/2011 1427 EDT Body Mass Index 37.79 01/04/2011 1427 EDT documented in this encounter Progress Notes * Marcin Chacko PA - 01/04/2011 1629 EDT Guzman presents with continued back and left lower extremity symptoms that radiates posterior thigh to the distal one-third of the thigh. She also has groin discomfort. Since our last visit she has undergone a repeat MRI of the LS spine and presents today to review that exam. Also since our last visit, she has followed up with Dr Moffett and it was his perspective that more likely than not her lower extremity symptoms related to nerve root impingement rather than a labral tear. OBJECTIVE: MRI of the LS spine dated 12/25/2010 is essentially unchanged from MRI dated 09/23/2009, with a disk extrusion in the neural foramen on the left at L4-5 with compression of the exiting L4 root. ASSESSMENT: A 35-year-old female with back and left lower extremity symptoms not clearly concordantwith her MRI, but it is possible that her symptoms are related to the L4 root impingement, possiblya mild irritation to L5. There is very little lateral recess stenosis on the left at L4-5, but there is mild lateral recess stenosis. At this point I think it would be reasonable to review this with one of the surgeons to gain their insight as to the source of this patient's discomfort before moving forward with any surgical procedures and perhaps they would have other suggestions that might be helpful in better defining the source of her pain. As noted, the patient has had multiple transforaminal epidural steroid injections at L4-5 on the left with no change in her symptoms. PLAN: 1. Activity as tolerated. 2. Continue current pain management regime. 3. Follow up with Dr Moffett as scheduled. 4. I will review this case with the next available surgeon and get back to Guzman as to the results of our conversation. I spent 15 minutes with Guzman, with 15 minutes of our time spent [id number] discussing symptoms, subjective complaints and reviewing her treatment options. documented in this encounter Plan of Treatment Not on file documented as of this encounter Visit Diagnoses Diagnosis Low back pain Lumbago Lumbar radiculopathy Thoracic or lumbosacral neuritis or radiculitis, unspecified documented in this encounter Care Teams Law Writer Relationship Specialty Start Date End Date Tamara Neal MD [address] [place], [place] [phone] PCP - General 09/13/08 03/18/13 documented as of this encounter
--- OUTSIDE RECORDS SUMMARY | 2024-02-14 15:27 | XMS_ITS | Encounter Summary ---
Author Organization [facility] Address [address] [place] [address] Care Team Providers Care Solar Installer Pv Name Role Phone Tamara Neal MD Primary Care Provider + Reason for Visit * Reason Onset Date Comments Back Pain 01/12/2011 Encounter Details Date Type Department Care Team (Late st Contact Info) Description 01/12/2011 Orders Only [facility] Spine Program - [address] [place] [address] Marcin Chacko PA-C [address] [employer] [place] [address] Left buttock pain; Left hip pain Social History Tobacco Use [...] as of this encounter Progress Notes * Quincy Walters - 01/12/2011 1043 EDT Phoned patient. She wishes to proceed with EMG and surgical consult. Order for EMG pended. documented in this encounter Plan of Treatment Not on file documented as of this encounter Visit Diagnoses Diagnosis Left buttock pain Mylagia and myositis, unspecified Left hip pain Pain in joint, pelvic region and thigh documented in this encounter Care Teams Solar Installer Pv Relationship Specialty Start Date End Date Tamara Neal MD [address] [place] [phone] PCP - General 09/13/08 03/18/13 documented as of this encounter
--- OUTSIDE RECORDS SUMMARY | 2024-02-14 15:27 | XMS_ITS | Encounter Summary ---
Author Organization [facility] Address [address] [place] [address] Care Team Providers Care Bagging Salvager Name Role Phone Tamara Neal MD Primary Care Provider + Encounter Details Date Type Department Care Team (Late st Contact Info) Description 02/23/2011 Phlebotomy Only [address] [address] Admittance Attendant, Outpatient Type 2 diabetes mellitus without (mention [...] Date/Time Associated Diagnosis Comments HEMOGLOBIN A1C Routine 02/23/2011 11:13 EDT Type 2 diabetes mellitus without (mention of) complications documented in this encounter Results * HEMOGLOBIN A1C (02/23/2011 11:13 EDT) Hemoglobin A1C 8.6 % [facility] Comment: Reference Range: <5.7% [...] D GAS ORDERABLES [facility] [address] [place] [address] documented in this encounter Visit Diagnoses Diagnosis Type 2 diabetes mellitus without (mention of) complications Type II or unspecified type diabetes mellitus without mention of complication, not stated as uncontrolled documented in this encounter Care Teams Bagging Salvager Relationship Specialty Start Date End Date Tamara Neal MD [address] [place] [phone] PCP - General 09/13/08 03/18/13 documented as of this encounter
--- OUTSIDE RECORDS SUMMARY | 2024-02-14 15:27 | XMS_ITS | Encounter Summary ---
Author Organization [facility] Address [address] [place] [address] Care Team Providers Care Manufacturer'S Service Representative Name Role Phone Tamara Neal MD Primary Care Provider + Encounter Details Date Type Department Care Team (Latest Contact Info) Description 12/25/2010 16:23 EDT - 12/25/2010 23:59 EDT Hospital Encounter [facility] [address] [facility] [place] [address] Kevin Horvath MD Discharge Disposition: Home or Self Care [...] Muscle Spasms. 60 Tab 2 11/14/2010 02/06/2011 fluticasone (FLONASE) 50 mcg/Actuation nasal sprayIndications:Pelon rgic rhinitis 1 [place] by Nasal route daily. 1 Bottle 2 08/01/2010 09/24/2012 HYDROmorphone (DILAUDID) 8 mg tablet Take 1 Tab by mouth every 4 hours as needed. 70 Each 0 12/26/2010 01/09/2011 ibuprofen (MOTRIN) 200 mg tablet Take 3 Tabs by mouth every 6 hours as needed. 12/31/2013 levonorgestrel (MIRENA) 20 mcg/24 hr IUD 1 Each by Intrauterine route once. 08/26/2008 05/01/2013 metformin (GLUCOPHAGE) 1,000 mg tablet Take 1 Tab by mouth 2 times daily. 60 Tab 5 02/15/2010 02/06/2011 pioglitazone (ACTOS) 30 mg tablet Take 1 [...] on filedocumented in this encounter Care Teams Manufacturer'S Service Representative Relationship Specialty Start Date End Date Tamara Neal MD [address] [place] [phone] PCP - General 09/13/08 03/18/13 documented as of this encounter
--- OUTSIDE RECORDS SUMMARY | 2024-02-14 15:27 | XMS_ITS | Encounter Summary ---
Author Organization [facility] Address [address] [place] [address] Care Team Providers Care Development Lead Name Role Phone Tamara Neal MD Primary Care Provider + Encounter Details Date Type Department Care Team (Late st Contact Info) Description 07/10/2011 Results Only Imaging [facility] [phone] Haim Esteban, DO [address] [place] [phone] Social History Tobacco Use Types Packs/Day Years [...] Procedure Name Priority Date/Time Associated Diagnosis Comments FL GUIDE LOCATION, ASPIRATION, INJECTION, BIOPSY 08/07/2011 15:52 EDT documented in this encounter Results * FL GUIDE LOCATION, ASPIRATION, INJECTION, BIOPSY (08/07/2011 15:52 EDT) Anatomical Region Laterality Modality Other 08/07/2011 15:5 2 EDT 08/08/2011 11:55 EDT Narrative 08/08/2011 11:55 EDT FL GUIDE LOCATION, ASPIRATION, INJECTION, BIOPSY ??Aug 07, 2011 03:52:00 PM Clinical History/Comments: Cervical pain, left radicular symptoms Consent: The procedure, its risks, possible complications and alternatives were discussed with the patient. Informed oral and written consent was obtained. Procedure: The skin overlying the left shoulder was prepped and draped in the usual sterile fashion and anesthetized with lidocaine 1%. Utilizing intermittent fluoroscopic guidance a 22-gauge spinal needle was introduced into the left glenohumeral joint space. A small volume of Isovue-300 contrast was instilled confirming satisfactory positioning of the needle tip. Subsequently 9 mL of a 1:200 dilute gadolinium solution was injected into the left glenohumeral joint space. The procedure was well tolerated by the patient who experienced no immediate complication. Procedure performed by Maria Eugenia Quach, radiology orderly. Dr. Dawkins was present for the penaloza and critical portions of the procedure. Impression: 1. Successful fluoroscopically guided injection of a dilute gadolinium solution into the left glenohumeral joint space. Left shoulder MR arthrogram to follow. Procedure Note 08/08/2011 FL GUIDE LOCATION, ASPIRATION, INJECTION, BIOPSY Aug 07, 2011 03:52:00 PM Clinical History/Comments: Cervical pain, left radicular symptoms Consent: The procedure, its risks, possible complications and alternatives were discussed with the patient. Informed oral and written consent was obtained. Procedure: The skin overlying the left shoulder was prepped and draped in the usual sterile fashion and anesthetized with lidocaine 1%. Utilizing intermittent fluoroscopic guidance a 22-gauge spinal needle was introduced into the left glenohumeral joint space. A small volume of Isovue-300 contrast was instilled confirming satisfactory positioning of the needle tip. Subsequently 9 mL of a 1:200 dilute gadolinium solution was injected into the left glenohumeral joint space. The procedure was well tolerated by the patient who experienced no immediate complication. Procedure performed by Maria Eugenia Quach, radiology orderly. Dr. Dawkins was present for the penaloza and critical portions of the procedure. Impression: 1. Successful fluoroscopically guided injection of a dilute gadolinium solution into the left glenohumeral joint space. Left shoulder MR arthrogram to follow. Haim Esteban DO IMG FLUOROSCOPY ORDERABLES documented in this encounter Visit Diagnoses Not on filedocumented in this encounter Care Teams Development Lead Relationship Specialty Start Date End Date Tamara Neal MD [address] [place] [phone] PCP - General 09/13/08 03/18/13 documented as of this encounter
--- OUTSIDE RECORDS SUMMARY | 2024-02-14 15:28 | XMS_ITS | Encounter Summary ---
Author Organization [facility] Address [address] [place] [address] Care Team Providers Care Dining Services Manager Name Role Phone Tamara Neal MD Primary Care Provider + Reason for Referral * Consult (Routine) - Closed Specialty Diagnoses / Procedures Referred By Contrachell t Referred To Contact Pain Medicine Diagnoses Low back pain Lumbar radiculopathy Marcin Chacko PA-C [address] [place] [phone] [facility] [address] [place] [address] Referral ID Status Reason Start Date Expiration Date V isits Requested Visits Authorized [id number] Closed Specialty Services Required 11/22/2009 1 1 Question Answer Reason for Request: TFESI left L4-5 Reason for Visit * Reason Comments Back Pain Encounter Details Date Type Department Care Team (Late st Contact Info) Description 11/22/2009 15:00 EDT Office Visit [facility] Spine Program [place] [address] Marcin Chacko PA-C [address] [place] [phone] Low back pain; Lumbar radiculopathy Social [...] Progress Notes * Marcin Chacko PA - 11/22/2009 1640 EDT Guzman Jean is being seen as a consultation from Dr. Neal. Chief Complaint Patient presents with ??? Back Pain Diagnoses of Low back pain and Lumbar radiculopathy were pertinent to this visit. HPI Back Pain The history is provided by the patient. This is a new problem. 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 She also has radiation through the anteriolateral thigh to the knee. The problem occurs constantly. The problem has been gradually improving (improved by 40% since its onset). The pain quality is described as stabbing, shooting, aching and burning. Pain Scale: 8/10/4. Exacerbated by: standing sitting bending lifting valsalva. Associated symptoms include leg pain, paresthesias and tingling. Pertinent negatives include no chest pain, no headaches, no bowel incontinence and no bladder incontinence. She has tried muscle relaxant, NSAIDs and analgesic (PT and chiropractic) for the symptoms. Patient Active Problem List Diagnoses Code ??? Routine general medical examination at health care facility V70.0A ??? Type 2 diabetes mellitus without (mention of) complications 250.00FM ??? Polycystic ovaries 256.4 ??? Contraceptive management V25.9B ??? Insertion of (intrauterine) contraceptive device V25.1J Past Medical History Diagnosis Date ??? Type 2 diabetes mellitus without (mention of) complications 02/15/2005 ??? Routine general medical examination at health care facility 02/15/2005 ??? Polycystic ovaries 01/21/2008 Past Surgical History Procedure Date ??? section times 2 ??? Tonsillectomy History Substance Use Topics ??? Tobacco Use: Quit -- 1.0 packs/day for 5 years Quit date: 08/23/2007 ??? Alcohol Use: No Family History Problem Relation ??? Cancer Maternal Aunt breast cancer ??? Cancer Maternal Grandmother breats cancer ??? Diabetes Paternal Grandmother ??? Diabetes Paternal Grandfather Current outpatient prescriptions Medication Sig Dispense Refill ??? oxycodone-acetaminophen (PERCOCET) 5-325 mg per tablet Take 1-2 Tabs by mouth 4 times daily as needed for Pain. Not to exceed 6 per day 66 Tab 0 ??? pioglitazone (ACTOS) 15 mg tablet Take 1 Tab by mouth daily. 30 Tab 3 ??? metformin (GLUCOPHAGE) 1,000 mg tablet Take 1 Tab by mouth 2 times daily. 60 Tab 2 ??? cyclobenzaprine (FLEXERIL) 10 mg tablet Take 1 Tab by mouth 3 times daily as needed for Muscle Spasms. 60 Tab 1 ??? spironolactone (ALDACTONE) 25 mg tablet Take 1 Tab by mouth 2 times daily. 60 Tab 1 ??? levonorgestrel (MIRENA) 20 mcg/24 hr IUD 1 Each by Intrauterine route once. 08/26/2008 ??? citalopram (CELEXA) 40 mg tablet Take 1 Tab by mouth daily. 30 Each 5 ??? trazodone (DESYREL) 50 mg tablet Take 0.5-1 Tabs by mouth at bedtime. Take half to one tablet at bedtime 30 Tab 4 ??? ibuprofen (MOTRIN) 200 mg tablet Take 3 Tabs by mouth every 6 hours as needed. ??? acetaminophen (TYLENOL) 500 mg tablet Take 2 Tabs by mouth every 4 hours as needed. No Known Allergies Review of Systems Constitutional: Positive for activity change. HENT: Negative for voice change. Eyes: Negative for visual disturbance. Respiratory: Negative for wheezing. Cardiovascular: Negative for chest pain and palpitations. Gastrointestinal: Negative for constipation. Genitourinary: Negative for bladder incontinence and difficulty urinating. Musculoskeletal: Positive for back pain. Skin: Negative for color change. Neurological: Positive for tingling. Negative for headaches. Psychiatric/Behavioral: The patient is nervous/anxious. Physical Exam Constitutional: She is oriented to person, place, and time. She appears well- developed and well-nourished. No distress. Eyes: Pupils are equal, round, and reactive to light. Cardiovascular: Normal rate and regular rhythm. Pulmonary/Chest: Effort normal. Neurological: She is alert and oriented to person, place, and time. Skin: Skin is warm and dry. Psychiatric: Her behavior is normal. Back Exam Comments: Gait is normal heel walking is normal No lesions rashes or hair donnell moderate palp tenderness Decreased ROM Strength left TA 4+/5 left ehl 4/5 soft touch diminished lateral left thigh Reflexes 2 DP2 babinski is down there is no clonus supine SLR right: neg Left: neg Hips have FROM Neurologic Exam Mental Status Oriented to person, place, and time. Cranial Nerves CN III, IV, Pupils are equal, round, and reactive to light. The prior workup of the patient includes: MRI - abnormal 09/23/09 far lateral HNP at L4-5 with NFN on the left Assessment Musculoskeletal discogenic back pain with L4,L5 lumbar radiculopathy. We reviewed multiple options including expectant management, PT, injection therapy and surgery. At this point she wants consider injections. Orders Placed This Encounter Procedure ??? Amb consult pain clinic Plan:TFESI L4-5 on the left Activity as tolerated without limitation Continue current pain management regime Follow up PRN If her pain returns we could consider a second injection or a surgical consult if she wishes. documented in this encounter Plan of Treatment Scheduled Referrals Name Type Priority Associated Diagnoses Orde r Schedule AMB CONSULT PAIN CLINIC Outpatient Referral Routine Low back pain Lumbar radiculopathy Ordered: 11/22/2009 documented as of this encounter Visit Diagnoses Diagnosis Low back pain Lumbago Lumbar radiculopathy Thoracic or lumbosacral neuritis or radiculitis, unspecified documented in this encounter Care Teams Dining Services Manager Relationship Specialty Start Date End Date Tamara Neal MD [address] [place] [phone] PCP - General 09/13/08 03/18/13 documented as of this encounter
--- OUTSIDE RECORDS SUMMARY | 2024-02-14 15:28 | XMS_ITS | Encounter Summary ---
Author Organization [facility] Address [address] [place] [address] Care Team Providers Care Cut Off Worker Name Role Phone Tamara Neal MD Primary Care Provider + Encounter Details Date Type Department Care Team (Late st Contact Info) Description 11/07/2010 Abstract [facility] Sports Medicine Program - [address] [address] Alberto Moffett MD [address] [place] [phone] Social History Tobacco Use Types [...] on filedocumented in this encounter Care Teams Cut Off Worker Relationship Specialty Start Date End Date Tamara Neal MD [address] [place] [phone] PCP - General 09/13/08 03/18/13 documented as of this encounter
--- OUTSIDE RECORDS SUMMARY | 2024-02-14 15:28 | XMS_ITS | Encounter Summary ---
Author Organization [facility] Address [address] [place] [address] Care Team Providers Care Bartacker Name Role Phone Tamara Neal MD Primary Care Provider + Encounter Details Date Type Department Care Team (Late st Contact Info) Description 01/31/2010 Documentation Visit [facility] [place] [address] Arnol Redding, PT [address] [place] [phone] Social History Tobacco Use Types [...] as of this encounter Progress Notes * Arnol Redding, PT - 01/31/2010 1126 EDT [facility] [address] [address] Phone: [phone] Fax: [phone] Physical Therapy Discontinue/Discharge Note Date: 01/31/2010 Reason for Referral: Diagnosis: Low Back Pain ICD 9: 724.2 Date of Onset: 08/13/09 Referring Provider: Tamara Neal MD Precautions: None (total visits) S: At last appointment on 11/16/2009, patient reported slight improvement in the pain on her right side, but continued pain in her left buttock which was not responding to treatment. O: The patient has been seen for physical therapy since 10/14/09 for a total of 4 visits. Interventions included manual therapy, therapeutic exercise,modalities, education on posture and body mechanics. Please refer to chart for details. At the time of her last visit on 11/16/2009. Relevant objective findings: None Team Communication: None A: Unable to assess. Per Chart Review, patient saw BASILIO Blackman and was referred to the pain clinic for injections. P: Discontinue Physical Therapy. The patient is invited to contact us at any time, should any problems arise, or should her plans for rehabilitation change. ARNOL REDDING, PT 01/31/2010 11:18 documented in this encounter Plan of Treatment Not on file documented as of this encounter Visit Diagnoses Not on filedocumented in this encounter Care Teams Bartacker Relationship Specialty Start Date End Date Tamara Neal MD [address] [place] [phone] PCP - General 09/13/08 03/18/13 documented as of this encounter
--- OUTSIDE RECORDS SUMMARY | 2024-02-14 15:28 | XMS_ITS | Encounter Summary ---
Author Organization [facility] Address [address] [place] [id number] Care Team Providers Care Supervisor Slate Splitting Name Role Phone Tamara Neal MD Primary Care Provider + Reason for Visit * Reason Comments Tailbone Pain f/u lower back pain Encounter Details Date Type Department Care Team (Late st Contact Info) Description 02/15/2010 11:45 EDT Office Visit [facility] Medicine [address] [address] Tamara Neal MD [address] [place] [address] [phone] LBP (low back pain); Diarrhea; Diabetes (CMS-HCC) ([facility]) Social History Tobacco Use Types Packs/Day [...] Sign Reading Time Taken Comments Blood Pressure 110/70 02/15/2010 1158 EDT Pulse 76 02/15/2010 1158 EDT Temperature 36.3 ??C (97.4 ??F) 02/15/2010 1158 EDT Respiratory Rate - - Oxygen Saturation - - Inhaled Oxygen Concentration - - Weight 95.7 kg (211 lb) 02/15/2010 1158 EDT Height - - Body Mass Index 41.21 11/29/2009 1625 EDT documented in this encounter Ordered Prescriptions Prescription Sig Dispensed Refills Start Date End Da te trazodone (DESYREL) 50 mg tablet Take 0.5-1 Tabs by mouth at bedtime. Take half to one tablet at bedtime 30 Tab 5 02/15/2010 03/16/2010 metformin (GLUCOPHAGE) 1,000 mg tablet Take 1 Tab by mouth 2 times daily. 60 Tab 5 02/15/2010 02/06/2011 oxycodone-acetaminophen (PERCOCET) 5-325 mg per tablet Take 1-2 Tabs by mouth every 8 hours as needed for Pain. Not to exceed 5 per day. 70 Tab 0 03/01/2010 07/13/2010 oxycodone-acetaminophen (PERCOCET) 5-325 mg per tablet Take 1-2 Tabs by mouth every 8 hours as needed for Pain. Not to exceed 5 per day. 70 Tab 0 02/15/2010 02/15/2010 cholestyramine (QUESTRAN) 4 gram packet Take 1 Packet by mouth 2 times daily. 60 Packet 2 02/15/2010 07/13/2010 documented in this encounter Progress Notes * Tamara Neal MD - 02/15/2010 1314 EDT S: here to f/u on LBP Also working with Dr. Mcdonald. Last week tried Lyrica 50 mg for 2 days but did not like the dizziness and TIDWELL so stopped. Did not notice any pain relief Still using percocet 5/325 1 tab tid and 2 tab qhs. Pain is maybe even slightly worse. Has injection scheduled for mid-Feb with Dr. Mcdonald Also notes significant diarrhea since cholecystectomy, up to 8 times daily. No blood occ mucous. Does have abd cramping and incredible urge just prior to BM. Due for HgA1C last in September was 9.2. Is now off Actos (was afraid of potential s/e) Does not want Flu vaccine O: BP 110/70 Pulse 76 Temp(Src) 36.3 ??C (97.4 ??F) (Tympanic) Wt 95.709 kg (211 lb) Gen - well INAD A/P LBP/coccyx Pain - working with anesthesia pain Did not tolerate Lyrica but likely did not have long enough trial Reluctantly will con't narcotics for now, Percocet 5/325 (up to 5 tablets daily) Diarrhea - related to cholecystectomy Trial Cholestyramine 4 gm bid F/u 1 mos or sooner prn DM - HgA1C today Offered Flu vaccine, declined * Beth Jewell - 02/15/2010 1244 EDT Venipuncture performed on left arm for HGAIC and CMP per order of Dr Tamara Neal. Beth Jewell MA documented in this encounter Plan of Treatment Not on file documented as of this encounter Procedures Procedure Name Priority Date/Time Associated Diagnosis Comments HEMOGLOBIN A1C Routine 02/15/2010 12:23 EDT Diabetes ([facility]) ([facility]) COMPREHENSIVE METABOLIC PANEL (CMP) Routine 02/15/2010 12:23 EDT Diabetes ([facility]) ([facility]) documented in this encounter Results * HEMOGLOBIN A1C (02/15/2010 12:23 EDT) Hemoglobin A1C 7.3 % [facility] Comment: Reference Range: <5.7% Normal 5.7-6.4% Increased risk for diabetes =>6.5% Diagnostic for diabetes (if confirmed) ?? The A1c goal for non adults in general is <7%. ?? The A1c goal for selected patients may be significantly lower than 7% if this can be achieved without significant hypoglycemia or other adverse effects of treatment. Est Avg Glucose 163 mg/dl [facility] Comment:eAG represents the A 1c result expressed as average glucose in mg/dl. Blood specimen (specimen) 02/15/2010 12:23 EDT 02/15/2010 20:43 EDT Tamara Neal MD CHEMISTRY & BLOO D GAS ORDERABLES [facility] [address] [place] [address] * (ABNORMAL) COMPREHENSIVE METABOLIC PANEL (CMP) (02/15/2010 12:23 EDT) Potassium 4.4 3.5 - 5.0 mEq/L [facility] Sodium 138 136 - 145 mEq/L [facility] Chloride 102 96 - 110 mEq/L [facility] CO2 25 24 - 32 mEq/L [facility] Total Alkaline Phosphatase 75 38 - 126 U/L [facility] Bilirubin, Total 0.6 0.2 - 1.3 mg/dl [facility] AST 48(H) 15 - 46 U/L [facility] ALT 67(H) 9 - 52 U/L [facility] Albumin 4.6 3.4 - 4.9 g/dl [facility] Total Protein 7.6 6.5 - 8.3 g/dl [facility] Creatinine 0.60(L) 0.7 - 1.5 mg/dl [facility] GFR, Calculated >60 ml/min/1.7 3m2 [facility] BUN 12 10 - 26 mg/dl [facility] Calcium 10.3 8.5 - 10.5 mg/dl [facility] Calculated Calcium 10.1 8.5 - 10.5 mg/dl [facility] Glucose, Serum 131(H) 70 - 100 mg/dl [facility] Fasting? Unknown [facility] Blood specimen (specimen) 02/15/2010 12:23 EDT 02/15/2010 20:43 EDT Tamara Neal MD CHEMISTRY & BLOO D GAS ORDERABLES [facility] [address] [place] [address] documented in this encounter Visit Diagnoses Diagnosis LBP (low back pain) Lumbago Diarrhea Diabetes (HCC-CMS) Type II or unspecified type diabetes mellitus without mention of complication, not stated as uncontrolled documented in this encounter Discontinued Medications Medication Sig Discontinue Reason Start Date End Da te cyclobenzaprine (FLEXERIL) 10 mg tabletIndications:Low back pain Take 1 Tab by mouth 2 times daily as needed for Muscle Spasms. Duplicate Therapy 01/04/2010 02/15/2010 PIOGLITAZONE HCL (ACTOS ORAL) Take 20 mg by mouth daily. Patient Stopped Taking 01/25/2010 02/15/2010 SPIRONOLACTONE ORAL Take 40 mg by mouth daily. Error 01/25/2010 02/15/2010 oxycodone-acetaminophe n (PERCOCET) 5-325 mg per tablet Take 1-2 Tabs by mouth every 8 hours as needed for Pain. Not to exceed 5 per day. Reorder 01/17/2010 02/15/2010 oxycodone-acetaminophe n (PERCOCET) 5-325 mg per tablet Take 1-2 Tabs by mouth every 8 hours as needed for Pain. Not to exceed 5 per day. Reorder 02/15/2010 02/15/2010 metformin (GLUCOPHAGE) 1,000 mg tablet Take 1 Tab by mouth 2 times daily. Reorder 10/11/2009 02/15/2010 trazodone (DESYREL) 50 mg tablet Take 0.5-1 Tabs by mouth at bedtime. Take half to one tablet at bedtime Reorder 08/22/2009 02/15/2010 documented as of this encounter Care Teams Supervisor Slate Splitting Relationship Specialty Start Date End Date Tamara Neal MD [address] [place] [phone] PCP - General 09/13/08 03/18/13 documented as of this encounter
--- OUTSIDE RECORDS SUMMARY | 2024-02-14 15:28 | XMS_ITS | Encounter Summary ---
Author Organization [facility] Address [address] [place] [address] Care Team Providers Care Delivery Helper Name Role Phone Tamara Neal MD Primary Care Provider + Encounter Details Date Type Department Care Team (Late st Contact Info) Description 01/25/2010 Abstract Used for ABSTRACTING Data [phone] Tamara Neal MD [address] [place] [phone] Social History Tobacco Use Types Packs/Day Years [...] Diagnoses Not on filedocumented in this encounter Historical Medications * This list may reflect changes made after this encounter. Medication Sig Dispensed Refills Start Date End Date SPIRONOLACTONE ORAL Take 40 mg by mouth daily. 01/25/2010 02/15/2010 cyclobenzaprine (FLEXERIL) 10 mg tablet Take 20 mg by mouth 2 times daily. 01/25/2010 08/01/2010 PIOGLITAZONE HCL (ACTOS ORAL) Take 20 mg by mouth daily. 01/25/2010 02/15/2010 added in this encounter Care Teams Delivery Helper Relationship Specialty Start Date End Date Tamara Neal MD [address] [place] [phone] PCP - General 09/13/08 03/18/13 documented as of this encounter
--- OUTSIDE RECORDS SUMMARY | 2024-02-14 15:28 | XMS_ITS | Encounter Summary ---
Author Organization [facility] Address [address] [place] [address] Care Team Providers Care Bi Report Developer Name Role Phone Tamara Neal MD Primary Care Provider + Reason for Visit * Reason Onset Date Comments Other 07/21/2010 Encounter Details Date Type Department Care Team (Late st Contact Info) Description 07/21/2010 Telephone [facility] Family Medicine [address] [phone] Tamara Neal MD [address] [place] [address] [phone] Other Social History Tobacco Use Types Packs/Day [...] Miscellaneous Notes * Telephone Encounter - Arlene Aly - 07/25/2010 1219 EDT This is not a documented side effect of Neurontin but medications affect everyone differently. If she cannot tolerate neurontin, okay to stop. Tylenol, ibuprofen, cannot start another medication without an appointment. * Telephone Encounter - Santa Guerrero RN - 07/24/2010 1039 EDT Several attempts made to reach pt without success, msgs. Left. Message left for pt to call if they still require our assistance. 1:00 Guzman called the neurontin is causing right eye twitching, since starting it. The Neurontin is doing nothing for the joint pain. IS there something else i can take?' 1:08 oV ON 07/26/[address] Guan * Telephone Encounter - Almita Ponce - 07/21/2010 1523 EDT Patient is on Neurontin and it is making her eye twitch documented in this encounter Plan of Treatment Not on file documented as of this encounter Visit Diagnoses Not on filedocumented in this encounter Care Teams Bi Report Developer Relationship Specialty Start Date End Date Tamara Neal MD [address] [place] [phone] PCP - General 09/13/08 03/18/13 documented as of this encounter
--- OUTSIDE RECORDS SUMMARY | 2024-02-14 15:28 | XMS_ITS | Encounter Summary ---
Author Organization [facility] Address [address] [place] [address] Care Team Providers Care Chute Loader Name Role Phone Tamara Neal MD Primary Care Provider + Reason for Visit * Reason Onset Date Comments Medication Problem 10/11/2010 Encounter Details Date Type Department Care Team (Late st Contact Info) Description 10/11/2010 Refill [facility] Family Medicine - [address] [address] Tamara Neal MD [address] [place] [phone] Medication Problem Social History Tobacco Use Types [...] Tab by mouth every 6 hours as needed. 20 Each 0 10/13/2010 10/18/2010 documented in this encounter Miscellaneous Notes * Telephone Encounter - Santa Guerrero, RN - 10/12/2010 7316 EDT please ask one of my team members to sign an Rx for Guzman for her Dilaudid 8mg one q6h prn #20. This is to bridge her while I await the notes from Dr. Coe. Telephone order Dr. Neal repeated and confirmed. * Telephone Encounter - Stacy Hawkins - 10/12/2010 1059 EDT Patient called to see if notes were received from Dr Coe's office this morning as she was told they were faxed to us. Patient was advised we did not receive anything yet. She stated I really needmy medication filled today * Telephone Encounter - Mikki Dorado - 10/11/2010 1611 EDT Pt calling asking if we have received notes from Dr. Coe's office, I let pt know they are not here yet, we were told by Dr. Coe's office that they are not ready yet. She is almost out of her pain medicine and can't be without it, she is very worried about what she should do, please call back. documented in this encounter Plan of Treatment Not on file documented as of this encounter Visit Diagnoses Not on filedocumented in this encounter Discontinued Medications Medication Sig Discontinue Reason Start Date End Da te HYDROmorphone (DILAUDID) 8 mg tablet Take 8 mg by mouth every 4 hours as needed. 1-2 tabs. q4-6hprn Reorder 03/16/2010 10/12/2010 documented as of this encounter Care Teams Chute Loader Relationship Specialty Start Date End Date Tamara Neal MD [address] [place] [phone] PCP - General 09/13/08 03/18/13 documented as of this encounter
--- OUTSIDE RECORDS SUMMARY | 2024-02-14 15:28 | XMS_ITS | Encounter Summary ---
Author Organization [facility] Address [address] [place] [id number] Care Team Providers Care Equipment Superintendent Name Role Phone Tamara Neal MD Primary Care Provider + Reason for Visit * Reason Onset Date Comments Medications Refill 10/18/2010 Encounter Details Date Type Department Care Team (Late st Contact Info) Description 10/18/2010 Refill [facility] Family Medicine [address] [address] Tamara Neal MD [address] [place] [phone] Medications Refill Social History Tobacco Use Types [...] 4 hours as needed. 70 Each 0 10/31/2010 11/14/2010 HYDROmorphone (DILAUDID) 8 mg tablet Take 1 Tab by mouth every 4 hours as needed. 65 Each 0 10/18/2010 10/18/2010 documented in this encounter Miscellaneous Notes * Telephone Encounter - Tamara Neal MD - 10/18/2010 1230 EDT Will con't current does (Dilaudid 8 mg q4-6 hrs prn (#5 tabs daily) unitl established plan per ortho Will need ROV October * Telephone Encounter - StewartLesleyNadine - 10/18/2010 1114 EDT Patient called in regards to records from [facility] that Dr. Neal needed before she would refill her narcotic scripts. We did receive more records that are in Dr. Neal's box. Would like her to review so that she can get her medication, please call when done, thanks. documented in this encounter Plan of Treatment Not on file documented as of this encounter Visit Diagnoses Not on filedocumented in this encounter Discontinued Medications Medication Sig Discontinue Reason Start Date End Da te HYDROmorphone (DILAUDID) 8 mg tablet Take 1 Tab by mouth every 6 hours as needed. Reorder 10/13/2010 10/18/2010 HYDROmorphone (DILAUDID) 8 mg tablet Take 1 Tab by mouth every 4 hours as needed. Reorder 10/18/2010 10/18/2010 documented as of this encounter Care Teams Equipment Superintendent Relationship Specialty Start Date End Date Tamara Neal MD [address] [place] [phone] PCP - General 09/13/08 03/18/13 documented as of this encounter
--- OUTSIDE RECORDS SUMMARY | 2024-02-14 15:28 | XMS_ITS | Encounter Summary ---
Author Organization [facility] Address [address] [place] [address] Care Team Providers Care Correction Officer Reformatory Name Role Phone Tamara Neal MD Primary Care Provider + Encounter Details Date Type Department Care Team (Late st Contact Info) Description 11/25/2009 9:49 EDT - 11/25/2009 17:02 EDT Hospital Encounter [facility] Perioperative Services- [address] [id number] Ron Mendez MD [address] [place] [address], [address] [place] [phone] Discharge Disposition: Home or Self Care Social [...] Sign Reading Time Taken Comments Blood Pressure 126/67 11/25/2009 1630 EDT Pulse 87 11/25/2009 1430 EDT Temperature 37.1 ??C (98.8 ??F) 11/25/2009 1600 EDT Respiratory Rate 15 11/25/2009 1630 EDT Oxygen Saturation 98% 11/25/2009 1630 EDT Inhaled Oxygen Concentration - - Weight 94.3 kg (208 lb) 11/09/2009 1532 EDT Height 152.4 cm (5') 11/09/2009 1532 EDT Body Mass Index 40.62 11/09/2009 1532 EDT documented in this encounter Discharge Instructions * Discharge Instructions* Andrew Meyer MD - 11/25/2009 11:37 EDT Diet: Regular Activity: No heavy lifting or strenuous activity for 6 weeks Driving: No driving while taking narcotic pain medication Skin/Wound Care: Okay to get wound wet, but pat dry. Do NOT rub the wound area. You may remove the outer dressings in 48 hours. Leave the Steri-Strips (white strips) underneath and allow them to fall off on their own. Call your provider for problems with stiches, redness, pain, drainage or if stiches pull apart. Resume normal skin care. Bathing: Okay to get wound wet, but pat dry. Do NOT rub the wound area. Shower only Pending Results: Not applicable Symptoms to Call Your Doctor About: Fever greater than 100.4 or chills Increased or new pain Nausea or vomiting Shortness of breath or rapid breathing Signs of infection such as pain, redness, swelling or drainage at procedure or wound site Appointments: See Dr. Mendez in 2 weeks. Please call [phone] for an appointment. Follow-up Services Contacted at Discharge: none Health Risk and Disease Information: Not applicable documented in this encounter Medications at Time of Discharge Medication Sig Dispensed Refills Start Date End Date acetaminophen (TYLENOL) 500 mg tablet Take 2 Tabs by mouth every 4 hours as needed. 04/27/2014 citalopram (CELEXA) 40 mg tablet Take 1 Tab by mouth daily. 30 Each 5 09/06/2009 08/01/2010 cyclobenzaprine (FLEXERIL) 10 mg tabletIndications:Low back pain Take 1 Tab by mouth 3 times daily as needed for Muscle Spasms. 60 Tab 1 10/04/2009 01/04/2010 hydrocodone-acetaminop hen (LORTAB;VICODIN) 5-500 mg per tablet Take 1-2 Tabs by mouth every 6 hours as needed for Pain. 50 Tab 0 11/25/2009 11/29/2009 ibuprofen (MOTRIN) 200 mg tablet Take 3 Tabs by mouth every 6 hours as needed. 12/31/2013 levonorgestrel (MIRENA) 20 mcg/24 hr IUD 1 Each by Intrauterine route once. 08/26/2008 05/01/2013 metformin (GLUCOPHAGE) 1,000 mg tablet Take 1 Tab by mouth 2 times daily. 60 Tab 2 10/11/2009 02/15/2010 oxycodone-acetaminophe n (PERCOCET) 5-325 mg per tablet Take 1-2 Tabs by mouth 4 times daily as needed for Pain. Not to exceed 6 per day 66 Tab 0 11/18/2009 11/29/2009 pioglitazone (ACTOS) 15 mg tablet Take 1 Tab by mouth daily. 30 Tab 3 10/11/2009 01/04/2010 spironolactone (ALDACTONE) 25 mg tablet Take 1 Tab by mouth 2 times daily. 60 Tab 1 09/28/2009 01/16/2010 trazodone (DESYREL) 50 mg tablet Take 0.5-1 Tabs by mouth at bedtime. Take half to one tablet at bedtime 30 Tab 4 08/22/2009 02/15/2010 documented as of this encounter Ordered Prescriptions Prescription Sig Dispensed Refills Start Date End Da te hydrocodone-acetaminophen (LORTAB;VICODIN) 5-500 mg per tablet Take 1-2 Tabs by mouth every 6 hours as needed for Pain. 50 Tab 0 11/25/2009 11/29/2009 documented in this encounter Discharge Disposition Disposition Code Departure Means Destination Home or Self Care documented in this encounter Progress Notes * Al Jolley - 11/25/2009 1658 EDT Pt ambulated to the bathroom to void, discharge instructions reviewed. * Mame Ludwig - 11/25/2009 2884 EDT Post Anesthesia Evaluation Date of Service: 11/25/2009 The patient has been evaluated, assessed and discharged from anesthesia care with stable cardiorespiratory function and acceptable mental status, pain management, body temperature, fluid balance, nausea/vomiting control and Jacqueline score. Additional monitoring and assessment needs have been addressed. If present, postoperative events are documented below. MAME LUDWIG CRNA 11/25/2009 4:45 PM * Ayla Ulloa RN - 11/09/2009 1545 EDT Guzman Jean has been instructed as follows regarding medication administration for the day of the scheduled procedure. Date of Surgery: 11/25/09 Instructions for Taking Medications Day of Surgery Medication Last Dose Hold DOS Take DOS oxycodone-acetaminophen (PERCOCET) 5-325 mg per tablet Yes pioglitazone (ACTOS) 15 mg tablet yes metformin (GLUCOPHAGE) 1,000 mg tablet yes cyclobenzaprine (FLEXERIL) 10 mg tablet Yes spironolactone (ALDACTONE) 25 mg tablet Yes levonorgestrel (MIRENA) 20 mcg/24 hr IUD Yes citalopram (CELEXA) 40 mg tablet Yes trazodone (DESYREL) 50 mg tablet Yes ibuprofen (MOTRIN) 200 mg tablet 11/18/09 yes acetaminophen (TYLENOL) 500 mg tablet Yes * Ayla Ulloa RN - 11/09/2009 1547 EDT .preop documented in this encounter H&P Notes * Inpatient, Physician - 11/30/2009 1018 EDT documented in this encounter Procedure Notes * Inpatient, Physician - 11/30/2009 1018 EDTAssociated Order(s): ORDERS - SCANNED * Inpatient, Physician - 11/30/2009 1018 EDTAssociated Order(s): ECG REPORT - SCANNED * Inpatient, Physician - 11/25/2009 0000 EDTAssociated Order(s): ORDERS - SCANNED documented in this encounter Nursing Notes * Inpatient, Physician - 11/28/2009 0909 EDT documented in this encounter OR Notes * OR PreOp - Inpatient, Physician - 11/30/2009 1018 EDT * Anesthesia Procedure Notes - Inpatient, Physician - 11/25/2009 1421 EDT * Anesthesia Preprocedure Evaluation - Inpatient, Physician - 11/25/2009 1418 EDT * OR PreOp - Inpatient, Physician - 11/25/2009 1402 EDT * OR PreOp - Inpatient, Physician - 11/25/2009 1342 EDT * OR Surgeon - Ron Mendez MD - 11/25/2009 0000 EDT OPERATIVE REPORT SERVICE DATE: 11/25/2009 PREOPERATIVE DIAGNOSIS: Biliary colic, cholelithiasis, abnormal liver functions and fatty liver. POSTOPERATIVE DIAGNOSIS: Biliary colic, cholelithiasis, abnormal liver functions and fatty liver. PROCEDURE: Laparoscopic cholecystectomy with intraoperative cholangiogram and liver biopsy. SURGEON: Ron Mendez MD FACS RESOURCE CONSERVATION MANAGER: Andrew Meyer MD ANESTHESIA: General endotracheal. INDICATIONS: This lady presented with episodes of upper abdominal pain and was found to have gallstones on ultrasound. She also had what appeared to be a large fatty liver. Her AST and ALT were elevated, but not her alkaline phosphatase. Her bile duct looked normal on ultrasound. FINDINGS: The liver was enlarged and quite yellow and fatty. There was no evidence of any nodularity, however. The gallbladder was normal size. There was 1 single large gallstone in the gallbladder. The cystic duct was small in caliber. The cystic duct cholangiogram was performed, which showed goodfilling of the right and left hepatic ducts with good flow into the small biliary radicals in both sides of the liver, as well as a normal-appearing common hepatic and common bile duct with good flowinto the duodenum with no evidence of obstruction or retained material. We felt that the cholangiogram was normal. NARRATIVE: The patient was taken to the operating room on 11/25/2009, placed on the operating table in supine position. SCDs were placed prior to induction of general endotracheal anesthesia. A complete briefing was also performed. She received preoperative antibiotics. The abdomen was prepped with DuraPrep and draped in the usual fashion. The laparoscopic instruments were brought into the field. We used 0.5% Marcaine to infiltrate our trocar sites and used four trocar sites. We started with a 5mm incision just above the umbilicus. A Veress needle was inserted through this into the peritonealcavity and pneumoperitoneum was obtained to a pressure of 15 mmHg by continuous insufflation with carbon dioxide, which was maintained throughout the procedure. The 5 mm endoscope was then placed into the abdominal cavity using the Admittor device. We then placed the other trocars under direct vision. An 11 mm trocar was placed just below the xiphoid in the midline. Five mm trocars were placed 3 fingerbreadths below the costal margin in the midclavicular and anterior axillary lines, respectively. We used a total of 10 mL of 0.5% Marcaine for the trocar sites. The gallbladder was then grasped with atraumatic grasping forceps. The patient was placed in steep reverse Trendelenburg position andthen rotated the left to facilitate exposure. We had excellent exposure. We were easily able to dissect out the junction of the gallbladder with the cystic duct. A clip was placed in this location and a small incision was made in the cystic duct and a cholangiogram was obtained using a small ureteral catheter placed through an Linton clamp. Once this was done and we were satisfied that the cholangiogram was normal, this apparatus was removed and the distal cystic duct was doubly clipped and divided. The cystic artery was divided between clips and the gallbladder was dissected free from the gallbladder bed using electrocautery. We did get a little pinhole in the gallbladder and leaked a smallamount of bile doing this, but leaked no stones. The gallbladder was then placed in an EndoCatch bag and removed through the 11 mm trocar site. There was one single large stone in the gallbladder. This is what we had seen on previous ultrasound. Once the gallbladder was out, we irrigated around theliver and the left upper quadrant. There was no evidence of any bleeding or problems. We next made a small stab wound incision just below the costal margin between the mid clavicular line and anterior axillary line and using a long Derrick-Cut needle obtained a core biopsy of the right lobe of the liver. This went easily. We had an excellent biopsy. We cauterized the small site of the liver capsule and had good hemostasis. We irrigated more around the liver and under the liver. We inspected our clips. There was no evidence of bleeding, bile leak or other problems. The effluent was completely clear. The trocars were removed under direct vision. The 11 mm trocar was closed at the fascial level with 0 Vicryl suture. The skin at all trocar sites was closed with subcuticular 4-0 Monocryl with Steri-Strips and a sterile gauze and Tegaderm dressing applied. I was present and scrubbed for the entire procedure. There were no complications. ESTIMATED BLOOD LOSS: Minimal. FLUIDS: She received 1 L of lactated Ringers. SPECIMENS: We submitted the gallbladder and stone as a specimen. The patient was extubated in the operating room and transferred to the postanesthesia care unit in stable and satisfactory condition. Unless otherwise noted, there were no complications, no blood loss, no cultures obtained, no specimens removed, and no drains retained. Dictated by: Ron Mendez MD, FACS Ron Mendez MD, FACS 01 43 PM / [facility] Confirmation: [id number] Dictation ID: [id number] cc:Andrew Neal MD documented in this encounter Miscellaneous Notes * Scanned Note-Null - Inpatient, Physician - 11/30/2009 1018 EDT * Scanned Note-Null - Inpatient, Physician - 11/30/2009 1018 EDT * Brief Op Note - Andrew Meyer MD - 11/25/2009 1353 EDT BRIEF OP NOTE Preop dx: biliary colic Postop dx: biliary colic Procedure: Laproscopic Cholecystectomy with Cholangiogram and liver biopsy Surgeon: Andrea Clinical Project Manager: Princess Meyer MS III, Fabian MS II Anesth: GETA Findings: Non-gangrenous gallbladder and fatty appearing liver. Biliary tree was visualized with cholangiogram with no filling defects EBL: minimal IVF: 120 cc UOP: No decker, Not measured Specimen: core liver biopsy Cultures: None Foreign Material Retained: None Complications: None Dispo: To PACU in stable condition ANDREW MEYER MD Pager # [phone] documented in this encounter Plan of Treatment Not on file documented as of this encounter Procedures Procedure Name Priority Date/Time Associated Diagnosis Comments ORDERS - SCANNED 12/21/2009 5:38 EDT ECG REPORT - SCANNED 11/30/2009 10:18 EDT ORDERS - SCANNED 11/30/2009 10:1 8 EDT INTRAOP CHOLANGIOGRAM 11/25/2009 13:18 EDT documented in this encounter Results * ORDERS - SCANNED (12/21/2009 5:38 EDT) 12/21/2009 5:38 EDT Narrative Procedure Note Inpatient, Physician - 11/25/2009 0:00 EDT Physician Inpatient MD ADMISSION ORDERAB LES * ECG REPORT - SCANNED (11/30/2009 10:18 EDT) 11/30/2009 10:1 8 EDT Narrative Procedure Note Inpatient, Physician - 11/30/2009 10:18 EDT Physician Inpatient PROCEDURE/MINOR S URGICAL ORDERABLES * ORDERS - SCANNED (11/30/2009 10:18 EDT) 11/30/2009 10:1 8 EDT Narrative Procedure Note Inpatient, Physician - 11/30/2009 10:18 EDT Physician Inpatient MD ADMISSION ORDERAB LES * INTRAOP CHOLANGIOGRAM (11/25/2009 13:18 EDT) Anatomical Region Laterality Modality Other 11/25/2009 13:1 8 EDT 11/25/2009 14:58 EDT Narrative 11/25/2009 14:58 EDT History/Comments: ?? cholelithiasis. S/P cholangiogram. INTRAOP CHOLANGIOGRAM. Findings: Intraoperative cholangiogram shows good filling of the common bile duct, the common hepatic duct and the intrahepatic ducts. No filling defect is seen. No evidence of obstruction is identified. Impression: Intraoperative cholangiogram is within normal limits. Procedure Note 11/25/2009 History/Comments: cholelithiasis. S/P cholangiogram. INTRAOP CHOLANGIOGRAM. Findings: Intraoperative cholangiogram shows good filling of the common bile duct, the common hepatic duct and the intrahepatic ducts. No filling defect is seen. No evidence of obstruction is identified. Impression: Intraoperative cholangiogram is within normal limits. Ron Mendez MD IMG DIAGNOSTIC IMAGI NG ORDERABLES documented in this encounter Visit Diagnoses Not on filedocumented in this encounter Administered Medications Inactive Administered Medications - up to 3 most recent administrations Medication Order MAR Action Action Date Dose Rate Site CEFAZolin (ANCEF) syringe 2 g 2 g, intravenous, Administer over 10 Minutes, PRE-OP ONCE, 1 dose, On Sat11/25/09 at 1100, Routine, Pre-Op DOS Rx Approved Given by Other 11/25/2009 12:39 EDT 2 g fentanyl citrate (PF) 50 mcg/mL injection 25-100 mcg 25-100 mcg, intravenous, EVERY 5 MIN PRN, Starting on Sat11/25/09 at 1418, Until Sat11/25/09 at 1909, Pain, Routine, Recovery (only) Given 11/25/2009 15:03 EDT 50 mcg Given 11/25/2009 14:38 EDT 50 mcg fentanyl citrate (PF) 50 mcg/mL injection 1 dose, Starting on Sat11/25/09 at 1434, Until Sat11/25/09 at 1438 HYDROmorphone (DILAUDID) tablet 2 mg 2 mg, oral, PRN, 2 doses, Starting on Sat11/25/09 at 1418, Until Sat11/25/09 at 1909, Pain, Routine, Recovery (only) Given 11/25/2009 15:13 EDT 4 mg lactated ringers (LR) infusion at 25 mL/hr, intravenous, CONTINUOUS, Starting on Sat11/25/09 at 1115, Until Sat11/25/09 at 1909, Routine, Pre Op Day of Surgery New Bag 11/25/2009 10:53 EDT 25 mL/hr documented in this encounter Active and Recently Administered Medications Times are shown in EDT. Scheduled Medication Order 11/23/2009 11/24/2009 11/25/2009 CEFAZolin (ANCEF) syringe 2 g (COMPLETED) 2 g, intravenous, Administer over 10 Minutes, PRE-OP ONCE, 1 dose, On Sat11/25/09 at 1100, Routine, Pre-Op DOS Rx Approved 1239 (Given by Other - Provider: Alise Spicer RN - Comment: Given in OR by Danish Haines MD) Continuous Medication Order 11/23/2009 11/24/2009 11/25/2009 lactated ringers (LR) infusion (CANCELED) at 25 mL/hr, intravenous, CONTINUOUS, Starting on Sat11/25/09 at 1115, Until Sat11/25/09 at 1909, Routine, Pre Op Day of Surgery 1053 (New Bag - Prov ider: Esther Workman RN) PRN Medication Order 11/23/2009 11/24/2009 11/25/2009 fentanyl citrate (PF) 50 mcg/mL injection 25-100 mcg (CANCELED) 25-100 mcg, intravenous, EVERY 5 MIN PRN, Starting on Sat11/25/09 at 1418, Until Sat11/25/09 at 1909, Pain, Routine, Recovery (only) 1438 (Given - Provid er: Tamara Rousseau RN - Comment: pain 5/10 charge nurse for outpatient dietitian)1503 (Given - Provider: Tamara Rousseau RN - Comment: pain still 5/10 no relief charge nurse) HYDROmorphone (DILAUDID) tablet 2 mg (CANCELED) 2 mg, oral, PRN, 2 doses, Starting on Sat11/25/09 at 1418, Until Sat11/25/09 at 1909, Pain, Routine, Recovery (only) 1513 (Given - Provid er: Tamara Rousseau RN - Comment: pain 5/10 takes narcs q 4hrs at home none since 11/24 see order for total of 4mg) documented in this encounter Orders Medications Ordered That Russel ht Not Have Been Administered Count Last Ordered Date First Ordered Date atropine 0.1 mg/mL 10 mL syringe 0.5 mg 1 0 11/25/2009 hydrocodone-acetaminophen (L ORTAB;VICODIN) 5-500 mg per tablet 1 Tab 1 11/25/2009 HYDROmorphone (PF) (DILAUDID ) 1 mg/mL injection 0.2 mg 1 11/25/2009 lactated ringers (LR) infusion 1 11/25/2009 naloxone (NARCAN) injection 0.2 mg 1 2009 ondansetron (PF) (ZOFRAN) injection 2 mg 1 11/25/2009 Lab Orders Without Results Count Last Ordered D ate First Ordered Date POCT GLUCOSE 1 11/25/2009 Nursing Count Last Ordered Date First Orde red Date ANESTHESIA COMMUNICATION 1 11/25/2009 CARDIAC MONITORING 1 11/25/2009 DISCONTINUE SALINE LOCK/IV/PICC 1 0 NOTIFY SERVICE 1 11/25/[address] SEQUENTIAL COMPRESSION DEVICE 1 11/25 PULSE OXIMETRY 1 11/25/2009 VITAL SIGNS 1 11/25/2009 Admission Count Last Ordered Date First Orde red Date NOTIFY PPS PATIENT DISCHARGED FROM PACU 1 0 11/25/2009 Discharge Count Last Ordered Date First Orde red Date DISCHARGE PATIENT 1 11/25/2009 documented in this encounter Care Teams Correction Officer Reformatory Relationship Specialty Start Date End Date Tamara Neal MD [address] [place] [phone] PCP - General 09/13/08 03/18/13 documented as of this encounter
--- OUTSIDE RECORDS SUMMARY | 2024-02-14 15:28 | XMS_ITS | Encounter Summary ---
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
--- OUTSIDE RECORDS SUMMARY | 2024-02-14 15:28 | XMS_ITS | Encounter Summary ---
Author Organization [facility] Address [address] [place] [address] Care Team Providers Care Junior Network Administrator Name Role Phone Tamara Neal MD Primary Care Provider + Reason for Visit * Reason Onset Date Comments Medications Refill 11/16/2009 Encounter Details Date Type Department Care Team (Late st Contact Info) Description 11/16/2009 Refill [facility] Family Medicine [address] [address] Tamara Neal MD [address] [place] [phone] Medications Refill Social History Tobacco Use Types [...] Dispensed Refills Start Date End Da te oxycodone-acetaminophen (PERCOCET) 5-325 mg per tablet Take 1-2 Tabs by mouth 4 times daily as needed for Pain. Not to exceed 6 per day 66 Tab 0 11/18/2009 11/29/2009 documented in this encounter Miscellaneous Notes * Telephone Encounter - Arlene Aly - 11/18/2009 0957 EDT I cannot see Dr. Laws's note. She needs to establish a contract with one provider to avoid the phone calls and confusion. She has an appointment with Dr. Neal on 11/29/09. I will write for 6 a day to last until that time but she must keep that appointment. * Telephone Encounter - Santa Guerrero, PRISCILA - 11/18/2009 0811 EDT msg left with md's response 8:48 Pt is unhappy with Dr. Laws's response, doesn't understand why he won't refill? He doesn't even now me. did he read my chart? Pt would like Dr. Aly to review the request for percocet because she has seen her * Telephone Encounter - Santa Guerrero RN - 11/16/2009 1432 EDT If pt takes the max percocet dose she would be out today. * Telephone Encounter - Mikki Dorado - 11/16/2009 1250 EDT Patient would like refill of Percocet and [facility] Test Strips for TID testing. Last OV 6.8.10 (for pain and diabetes) Next OV 7.26.10 Last Rx Percocet 7.15.10 Test Strips ? documented in this encounter Plan of Treatment Not on file documented as of this encounter Visit Diagnoses Diagnosis Type II or unspecified type diabetes mellitus without mention of complication, not stated as uncontrolled- Primary documented in this encounter Discontinued Medications Medication Sig Discontinue Reason Start Date End Da te oxycodone-acetaminophen (PERCOCET) 5-325 mg per tablet Take 1-2 Tabs by mouth 4 times daily as needed for Pain. 1-2 tab q 4-6 hr prn Reorder 11/10/2009 11/18/2009 documented as of this encounter Orders Equipment Count Last Ordered Date First Orde red Date BLOOD GLUCOSE TEST STRIPS 1 11/18/2009 LANCETS 1 11/18/2009 documented in this encounter Care Teams Junior Network Administrator Relationship Specialty Start Date End Date Tamara Neal MD [address] [place] [phone] PCP - General 09/13/08 03/18/13 documented as of this encounter
--- OUTSIDE RECORDS SUMMARY | 2024-02-14 15:28 | XMS_ITS | Encounter Summary ---
Author Organization [facility] Address [address] [place] [address] Care Team Providers Care Aircraft Technician Name Role Phone Tamara Neal MD Primary Care Provider + Encounter Details Date Type Department Care Team (Late st Contact Info) Description 10/12/2010 Abstract [facility] Sports Medicine Program - [place] [address] [place] [address] Tamara Neal MD [address] [place] [phone] Social History Tobacco Use Types Packs/Day Years [...] on filedocumented in this encounter Care Teams Aircraft Technician Relationship Specialty Start Date End Date Tamara Neal MD [address] [place] [phone] PCP - General 09/13/08 03/18/13 documented as of this encounter
--- OUTSIDE RECORDS SUMMARY | 2024-02-14 15:28 | XMS_ITS | Encounter Summary ---
Author Organization [facility] Address [address] [place] [address] Care Team Providers Care Pharmacist In Charge Owner Name Role Phone Madelyn Neal MD Primary Care Provider + Encounter Details Date Type Department Care Team (Latest Contact Info) Description 11/23/2009 10:40 EDT - 11/23/2009 23:59 EDT Hospital Encounter [facility] Interventional Pain [address] [place] [address] Geronimo Torres, DO [address] [facility] [address] [place] [phone] Discharge Disposition: Home or Self Care Social [...] 08/22/2009 02/15/2010 documented as of this encounter Discharge Disposition Disposition Code Departure Means Destination Home or Self [facility] documented in this encounter Plan of Treatment Pending Results Name Type Priority Associated Diagnoses Date /Time GLUCOSE, GLUCOMETER Lab Routine 11/25 10:49 EDT Scheduled Orders Name Type Priority Associated Diagnoses Orde r Schedule GLUCOSE, GLUCOMETER Lab Routine For m edications that can be administered at any time during the hospitalization for visit such as immunizations. for 1 Occurrences starting 11/25/2009 documented as of this encounter Procedures Procedure Name Priority Date/Time Associated Diagnosis Comments GLUCOSE, GLUCOMETER Routine 11/25/2009 1 0:49 EDT SURGICAL PATHOLOGY Routine 11/25/2009 0: 00 EDT documented in this encounter Results * (ABNORMAL) GLUCOSE, GLUCOMETER (11/25/2009 10:49 EDT) Glucose, Fingerstick 138(H) 70 - 100 mg/dl [facility] [employer] Counselor ID [id number] Test Performed by Nursing Services [facility] 11/25/2009 10:4 9 EDT 11/25/2009 10:55 EDT Antoine Mendez MD CHEMISTRY & BLOOD GA S ORDERABLES [facility] [address] [place] [address] * SURGICAL PATHOLOGY (11/25/2009 0:00 EDT) Pathology Report: SURGICAL PATHOLOGY REPORT ? Reports generated via electronic interface contain original data; ? however they are lacking the format of the original report. ? Caution should be taken when reading/interpreti ng unformatted reports. ? Name: ? HILDA CROWLEY ? Accession #: ? [id number] ? : ? 1975 (Age: 34) ??F ? Collect Date: ? 11/25/2009 ? Location: ? [facility] ? Receive Date: ? 11/25/2009 ? Provider: ANTOINE Álvarez MENDEZ MD ? Copy to: MADELYN A NUNO MD ? Final Pathologic Diagnosis: ? A. ?Gallbladder, cholecystectomy: ? 1. ?Chronic cholecystitis and cholelithiasis. ? 2. ? Cholesterolosis. ? B. ?Liver, right lobe, biopsy: ? 1. ?Severe hepatic steatosis (90%) with mild steatohepatitis and patchy perisinusoidal fibrosis (stage1). ??See comment. ? Comment: ? Trichrome stain reveals a well preserved hepatic architecture with a focal increase in perisinusoidal and pericellular fibrosis. ??The lobules are ? remarkable for severe micro- and macrovesicular steatosis (90%) with scattered ?? balloon hepatocytes in zone 3. Glycogenated nuclei are easily identified. The ?? portal tracts reveal a mild inflammatory infiltrate, consisting of lymphocytes ?? and rare plasma cells. ??The PAS-amylase stain is negative for any abnormal ? deposits. ??The iron stain reveals trace positivity. ??The findings are consistent with mild steatohepatitis. ??(Dr. Platt)/chuy ? Document reviewed and electronically signed by: ? Tali Platt MD ? Report ??Date: 11/30/2009 10:31 ? By the signature above, the attending physician certifies that he/she has ? personally conducted a gross and/or microscopic examination of the described ? specimens and rendered or confirmed the above diagnosis. ? Specimen(s) Received: ? A. ?Gallbladder and contents ? B. ? Liver biopsy right lobe ? Clinical History: ? Biliary colic, fatty liver ? Gross Description: ? Received in normal saline labelled Ted, Hilda and gallbladder and contents is a 7.0 cm in length by 2.5 cm in diameter gallbladder received ? opened which includes a 0.5 cm in length by 0.5 cm in diameter cystic duct ? (cystic duct margin is black-inked). ??The mucosa is snowden, velvety, and diffusely studded with slightly raised light yellow flecks which form a reticular pattern. The gallbladder wall measures 0.1 cm in thickness and is covered by a smooth, ?? white-light yellow serosa. ??Received separately in the specimen container is a ?? 2.3 cm in greatest dimension, hard, mixed-type cholelith. ??The cystic duct ? margin (en face) along with a section of upper gallbladder and central lower ? gallbladder are submitted as (A). ? Received in normal saline labelled Ted, Hilda and liver biopsy right ?? lobe is a 2.0 cm in length by 0.1 cm in diameter, firm, snowden-pale yellow ? cylinder of tissue which is submitted intact as (B). ??Iron, trichome, and ? PAS-amylase stains are ordered. ??(Kasie Gerard)/cjh ? End of Report ? [facility] 11/25/2009 11/25/2009 9:0 1 EDT Antoine Mendez MD PATHOLOGY ORDERABLES Performing Organization Address City/State/[facility] Co de Phone Number [facility] [address] [place] [address] documented in this encounter Visit Diagnoses * Evaluation - Geronimo Torres MD - 11/23/2009 0000 EDT DIVISION OF PAIN MANAGEMENT NEW PATIENT EVALUATION - 11/23/2009 CHIEF COMPLAINT: Left gluteal pain. HISTORY OF PRESENT ILLNESS: This is a very pleasant female presenting for left gluteal pain usuallynot extending into the left lower extremity. She was seen as a new patient evaluation in consideration for a transforaminal epidural steroid injection at L4-5 on the left by request of Marcin Chacko.Overall, the pain is described as a 6 on a visual analog scale, both currently and over the past 7 d ays; 70% of the pain is in the back, 30% is in the legs without a clear-cut associated or inciting event. Dating back to 08/05/2009 while sitting in a recliner, she first noticed the pain. The pain is same throughout the day, constant in nature, sharp, shooting with some perception of weakness. Thereare no significant relieving factors, made somewhat worse with bending and sitting, not able to walk a block at this time. Previous pain treatments include physical therapy, exercise, acupuncture, TENS and chiropractic treatment. DIAGNOSTIC STUDIES: Reveal AP and lateral views obtained on a plain film of 09/12/2009. MRI revealeda mild lower lumbar facet disk degeneration, left small paracentral disk herniation at L4-5 with contact to the exiting L4 nerve root. PAST MEDICAL HISTORY: Depression, anxiety, diabetes. She denies any chance of being . ALLERGIES: She denies allergies to medications. MEDICATIONS: She takes no current blood thinners. She is not on any anticoagulants. PAST SURGICAL HISTORY: 1998 and 2007. PSYCHOSOCIAL HISTORY: She denies illicit drug use, alcohol consumption or the use of nicotine-containing products including tobacco. She has never been treated for anger or suicidal ideation. She hasbeen treated for depression, anxiety. She has a 12th grade education. 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 She is . She lives with spouse and she has children. REVIEW OF SYSTEMS: A 14-point review of systems was completed. It is all negative with the exception of diabetes. OBJECTIVE: This is an alert and oriented female. She answers all questions appropriately, freely engages in conversation. Skin is warm, dry, turgor is adequate. Anterior neck is supple. Lungs are clear bilaterally. Heart: S1, S2. Extraocular motion intact. Conjunctivae are pink, moist. Head is normocephalic. Straight leg raise is equivocal at about 85 to 90 degrees on the right. It is positive atapproximately 45 degrees on the left with significant give-way weakness secondary to pain. There are no consistent sensory deficits into the left lower extremity to cold or light touch. There appearsto be some very slight sensory deficit to cold but it was not consistently reproducible. No edema pr esent of the lower extremities. IMPRESSION: 1. Degenerative disk disease and lower extremity radiculitis. 2. Current request for left L4-5 transforaminal epidural steroid injection. PLAN: 1. Transforaminal epidural steroid injection at left L4-5. 2. Follow up with Mr Chacko. PROCEDURE: Transforaminal epidural steroid injection on the left L4-5 under fluoroscopic guidance with contrast. Signed consent obtained, placed in patient's chart. The patient was taken to fluoroscopy suite and placed in the face-down position. The area was sterilely prepped and draped with Hibiclens x3. Zepeda moment was performed. Skin was anesthetized with a total volume of 6 mL of 2% Xylocaine with a 1-1/2-inch, 27-gauge needle through the previously anesthetized area. A 22-gauge 2-1/2-inch spinal needle was advanced using a coaxial technique so that it came to rest in the exiting neuralforamen of L4-5 on the left. Position tip was confirmed with AP and crosstable views as well as outlining the exiting nerve root with a total volume of 1.5 mL of 200 Isovue. Then, after negative aspiration, 80 mg of Depo-Medrol and 1 mL of 0.25% bupivacaine was injected. The patient tolerated the procedure well. At no time during this procedure was heme, CSF or paresthesias noted. They were discharged to home in stable condition. At time of discharge, her pain was a 4/10 on a visual analog scale, down from a 6. Also noted was 2 mg of IV Versed was given for the reduction of anxiety. Electronically Signed by Geronimo Torres DO 11/29/2009 09:49 Geronimo Torres DO - Geronimo Torres DO - [facility] Job ID: SM Doc ID: [id number] Ext Doc ID: [id number] cc: BASILIO Hammond documented in this encounter Care Teams Pharmacist In Charge Owner Relationship Specialty Start Date End Date Madelyn Neal MD [address] [place] [phone] PCP - General 09/13/08 03/18/13 documented as of this encounter
--- OUTSIDE RECORDS SUMMARY | 2024-02-14 15:28 | XMS_ITS | Encounter Summary ---
Author Organization [facility] Address [address] [place] [id number] Care Team Providers Care Overhead Crane Operator Name Role Phone Tamara Neal MD Primary Care Provider + Reason for Visit * Reason Comments Back Pain F/U apt Encounter Details Date Type Department Care Team (Late st Contact Info) Description 01/04/2010 11:45 EDT Office Visit [facility] Family Medicine [address] [phone] Tamara Neal MD [address] [place] [phone] LBP (low back pain) (Primary Dx); Type 2 diabetes mellitus without (mention of) complications; Hepatic steatosis; Low back pain Social History Tobacco Use Types Packs/Day [...] Sign Reading Time Taken Comments Blood Pressure 114/78 01/04/2010 1140 EDT Pulse 68 01/04/2010 1140 EDT Temperature 37.1 ??C (98.8 ??F) 01/04/2010 1140 EDT Respiratory Rate - - Oxygen Saturation - - Inhaled Oxygen Concentration - - Weight 90.7 kg (200 lb) 01/04/2010 1140 EDT Height - - Body Mass Index 39.06 11/29/2009 1625 EDT documented in this encounter Ordered Prescriptions Prescription Sig Dispensed Refills Start Date End Da te cyclobenzaprine (FLEXERIL) 10 mg tabletIndications:Low back pain Take 1 Tab by mouth 2 times daily as needed for Muscle Spasms. 60 Tab 1 01/04/2010 02/15/2010 oxycodone-acetaminophen (PERCOCET) 5-325 mg per tablet Take 1-2 Tabs by mouth every 8 hours as needed for Pain. Not to exceed 5 per day. 45 Tab 0 01/04/2010 01/17/2010 documented in this encounter Progress Notes * Tamara Neal MD - 01/04/2010 1233 EDT S: here to f/u on LBP. Reports pain not so good. recontacted APS and has scheduled another injection for early Jan. Is also scheduled to see Nae Orosco at ortho spine. No new paresthesias, bladder or bowel incontinence. Still has pain from left buttocks into left posterior thigh and wrapping around to knee. No new leg weakness. Using Flexeril 2 tabs QHS, occ 1-2 tab qam. Percocet 2 tabs Qhs and 1-2 in am (recently using 3 tabs daily). Ibuprofen 600 mg tid-qid, and limiting Tylenol use. Reviewed Liver biopsy which showed severe hepatic steatosis. Anonymous tip that her meds are being sold to her [id number] (I did NOT confront her with this today or verify) Plan all along has been to come up with non-narcotic pain management options and goal NOT to be 100% pain free. Regarding diabetes, stopped ACTOS because was afraid of CV side effects. HgA1C 9.2 in September, Had cholecystectomy in October, sugars beginning to decline. O: BP 114/78 Pulse 68 Temp(Src) 37.1 ??C (98.8 ??F) (Oral) Wt 90.719 kg (200 lb) Gen - well [facility] Neuro - gait WNL, heel-toe walk intact A/P LBP - agree with APS and eval at ortho spine Urine opiate confirmation for Oxycodone today (at first Olga just went to bathroom but was able to give sample after drinking water) 2 weeks supply Percocet 5/325 for 3 tablets daily (#45), if urine adequate then will give another 2week supply. Explained plan to come up with non-narcotic alternatives and limiting Acetominophen due to Steatosis DM - 2 Re-check HgA1C in 2 mos Hepatic steatosis - LFTs in 2 mos F/u 1 mos or sooner prn documented in this encounter Plan of Treatment Not on file documented as of this encounter Procedures Procedure Name Priority Date/Time Associated Diagnosis Comments OXYCODONE SCREEN, URINE Routine 01/04/2010 11:49 EDT TESTS ADDED BY PHONE Routine 01/04/2010 11:49 EDT OPIATE PANEL CONFIRMATION Routine 01/04/2010 11:49 EDT OPIATES SCREEN, URINE Routine 01/04/2010 11:49 EDT LBP (low back pain) documented in this encounter Results * OPIATE CONFIRMATION (01/04/2010 11:49 EDT) Opiates Negative Reference range: Cutoff: ??300 Unit: ng/mL [facility] Conf, Opiates Positive Discrepancy noted between immunoassay result and GC/MS ? result. The GC/MS result is the definitive result. ? [facility] Codeine Negative Reference range: <100 Unit: ng/mL [facility] Hydrocodone Negative Reference range: <100 Unit: ng/mL [facility] Hydromorphone Negative Reference range: <100 Unit: ng/mL [facility] Morphine Negative Reference range: <100 Unit: ng/mL [facility] Oxycodone 578Reference range: <100 Unit: ng/mL [facility] Oxymorphone 252Reference range: <100 Unit: ng/mL This report is intended for use in clinical monitoring and ? management of patients. It is not intended for use in ? employment-relat ed drug testing. ? Performed by: [facility] [employer], [address], ? [place] [address], Transformer Assembly Supervisor: Rose Lincoln, Ph.D. ? [facility] 01/04/2010 11:4 9 EDT 01/04/2010 19:15 EDT Tamara Neal MD URINALYSIS ORDER YOON Performing Organization Address [facility] de Phone Number [facility] [address] [place] [address] * TESTS ADDED BY PHONE (01/04/2010 11:49 EDT) Pathologist [facility] Tests to be added [facility] Diagnosis Code SAME [facility] Who Called DR [facility] Location Code [facility] Read Back/Confirmed ? YES [facility] 01/04/2010 11:4 9 EDT 01/04/2010 19:15 EDT Tamara Neal MD CHEMISTRY & BLOO D GAS ORDERABLES Performing Organization Address [facility] de Phone Number [facility] [address] [place] [address] * OXYCODONE SCREEN, URINE (01/04/2010 11:49 EDT) Oxycodone Screen Presumptive positive, interpret with caution. Confirmation testing available upon request. Note method change as of 12/08/2009. Suitable for medical purposes only. Will not detect all drugs within class. Cutoff = 300 ng/ml [facility] 01/04/2010 11:4 9 EDT 01/04/2010 19:15 EDT Tamara Neal MD GEN LAB UNIT COL LECT ORDERABLES Performing Organization Address [facility] de Phone Number [facility] [address] [place] [address] * OPIATES SCREEN, URINE (01/04/2010 11:49 EDT) Opiate Scrn, Ur Negative screen. Confirmation testing available upon request. Note method change as of 12/08/2009. Suitable for medical purposes only. Will not detect all drugs within class. Cutoff = 300 ng/ml Does not detect oxycodone, oxycontin or methadone. [facility] Urine specimen (specimen) 01/04/2010 11:49 EDT 01/04/2010 19:15 EDT Tamara Neal MD GEN LAB UNIT COL LECT ORDERABLES Performing Organization Address [facility] de Phone Number [facility] [address] [place] [address] documented in this encounter Visit Diagnoses Diagnosis LBP (low back pain)- Primary Lumbago Type 2 diabetes mellitus without (mention of) complications Type II or unspecified type diabetes mellitus without mention of complication, not stated as uncontrolled Hepatic steatosis Other chronic nonalcoholic liver disease Low back pain Lumbago documented in this encounter Discontinued Medications Medication Sig Discontinue Reason Start Date End Da te pioglitazone (ACTOS) 15 mg tablet Take 1 Tab by mouth daily. Patient Stopped Taking 10/11/2009 01/04/2010 oxycodone-acetaminophe n (PERCOCET) 5-325 mg per tablet Take 1-2 Tabs by mouth 4 times daily as needed for Pain. Not to exceed 5 per day. Reorder 12/27/2009 01/04/2010 cyclobenzaprine (FLEXERIL) 10 mg tabletIndications:Low back pain Take 1 Tab by mouth 3 times daily as needed for Muscle Spasms. Reorder 10/04/2009 01/04/2010 documented as of this encounter Care Teams Overhead Crane Operator Relationship Specialty Start Date End Date Tamara Neal MD [address] [place] [phone] PCP - General 09/13/08 03/18/13 documented as of this encounter
--- OUTSIDE RECORDS SUMMARY | 2024-02-14 15:28 | XMS_ITS | Encounter Summary ---
Author Organization [facility] Address [address] [place] [address] Care Team Providers Care Mechanical Engineering Intern Name Role Phone Tamara Neal MD Primary Care Provider + Reason for Visit * Reason Onset Date Comments Medication Problem 08/01/2010 Encounter Details Date Type Department Care Team (Late st Contact Info) Description 08/01/2010 Refill [facility] Family Medicine [address] [phone] Arlene Aly MD [address] [place] [address] [address] [place] [phone] Medication Problem Social History Tobacco Use Types [...] * Telephone Encounter - Arlene Aly - 08/01/2010 1607 EDT This is an increase in dose. Take 1 tab at nighttime prn which is equal to 100 mg. I only want her to take a half tab for the first few days. * Telephone Encounter - Mikki Dorado - 08/01/2010 1536 EDT Pharmacist calling about trazodone script, directions say Take 1 Tab by mouth at bedtime. Take halfto one tablet at bedtime, please call to clarify. documented in this encounter Plan of Treatment Not on file documented as of this encounter Visit Diagnoses Not on filedocumented in this encounter Care Teams Mechanical Engineering Intern Relationship Specialty Start Date End Date Tamara Neal MD [address] [place] [phone] PCP - General 09/13/08 03/18/13 documented as of this encounter
--- OUTSIDE RECORDS SUMMARY | 2024-02-14 15:28 | XMS_ITS | Encounter Summary ---
Author Organization [facility] Address [address] [place] [address] Care Team Providers Care Tube Drawer Name Role Phone Tamara Neal MD Primary Care Provider + Reason for Visit * Reason Comments Diabetes Hip Pain left hip Encounter Details Date Type Department Care Team (Late st Contact Info) Description 10/02/2010 15:30 EDT Office Visit [facility] Family Medicine [address] [phone] Unknown, Provider, Nini Quach MD [address] [place] [phone] Marisol Veras MD [address] [place] [phone] Chronic pain syndrome (Primary Dx); Diabetes mellitus type II, uncontrolled ([facility]) Social History Tobacco Use Types Packs/Day Years [...] Sign Reading Time Taken Comments Blood Pressure 134/76 10/02/2010 1554 EDT Pulse 100 10/02/2010 1554 EDT Temperature - - Respiratory Rate - - Oxygen Saturation - - Inhaled Oxygen Concentration - - Weight 90.7 kg (200 lb) 10/02/2010 1554 EDT Height - - Body Mass Index 39.06 07/13/2010 1333 EDT documented in this encounter Ordered Prescriptions Prescription Sig Dispensed Refills Start Date End Da te glipiZIDE (GLUCOTROL) 5 mg tabletIndications:Diabetes mellitus type II, uncontrolled Take 1 Tab by mouth daily. 30 Tab 2 10/02/2010 10/10/2010 documented in this encounter Progress Notes * Marisol Veras MD - 10/02/2010 1613 EDT Chief Complaint Patient presents with ??? Diabetes ??? Hip Pain left hip Checked HA1c last week--up to 9.0 now Brings in record of glucose checks: morning values: 205-380, Pre-lunch values 187 & 325, Pre-dinner values 210 & 312 Has not had appointment scheduled yet with public health educator Takes metformin 1000 mg BID--for years Treated with insulin during Left hip pain: Has appt with Ortho for 10/06/10 Dr. Coe has prescribed more of dilaudid x 2 weeks [facility] O: BP 134/76 Pulse 100 Wt 90.719 kg (200 lb) GEN: A&Ox3, NAD RESP; No resp distress Results for HILDA CROWLEY ( ) as of 10/02/2010 20:23 Ref. Range 06/18/2007 08:36 10/10/2009 07:41 02/15/2010 12:23 09/27/2010 15:59 Hemoglobin A1C No range found 5.1 9.2 7.3 9.0 Est Avg Glucose No range found 217 163 212 09/11/10 MRI left hip: Impression: 1. Focal small anterosuperior tear. 2. Mild chondral thinning andsurface fraying is suspected in the region of [...] associated edema in the region of the trochanteric bursal space. This could be correlated for any clinical evidence of corresponding lateralleft hip region pain. The gluteus medius tendon has a more normal appearance. A/P: 35 y/o female seen today in follow up for poorly controlled diabetes and left hip pain with abnormal MRI results. Hilda was seen today for diabetes and hip pain. Diagnoses and associated orders for this visit: Chronic pain syndrome: Patient reports that she has been prescribed Dilaudid by Dr. Coe for her chronic left hip pain. Discussed that we must receive his clinical notes, including prescribing information before we can consider prescribing narcotics. Must have urine drug screening results prior to considering prescribing as well. On 09/29/10, he prescribed 2 additional weeks of Dilaudid per patient. - Drug Screen 6; Future--patient will return to give urine sample - Opiate Confirmation; Future--patient will return to give urine sample - Advised to keep appointment with Orthopedics on 10/06/10 - If we agree to prescribe dilaudid, goal to taper off of narcotics as soon as possible. This was discussed with patient. - Has appointment 10/10/[address] Neal to f/u on this issue. Diabetes Type 2, poorly controlled - glipiZIDE (GLUCOTROL) 5 mg tablet; Take 1 Tab by mouth daily. This is a new medication for this patient. Added due to poor glycemic control. - Continue metformin 1000 mg BID - Patient awaiting appointment to see Byproducts Supervisor - Encouraged Exercise Marisol Veras MD Attestation statement for office patient not seen by attending: I discussed the patient with the resident/fellow at the time of the visit and agree with the findings and the plan of care documented in the resident's/fellow's note. Nini Man MD Family Medicine Attending 10/02/2010 23:11 documented in this encounter Plan of Treatment Not on file documented as of this encounter Results * OPIATE CONFIRMATION (10/03/2010 16:38 EDT) Opiates Positive Reference range: Cutoff: ??300 Unit: ng/mL [facility] Conf, Opiates Positive [facility] Codeine Negative Reference range: <100 Unit: ng/mL [facility] Hydrocodone Negative Reference range: <100 Unit: ng/mL [facility] Hydromorphone 8315Reference range: <100 Unit: ng/mL [facility] Morphine Negative Reference range: <100 Unit: ng/mL [facility] Oxycodone Negative Reference range: <100 Unit: ng/mL [facility] Oxymorphone Negative Reference range: <100 Unit: ng/mL This report is intended for use in clinical monitoring and ? management of patients. It is not intended for use in ? employment-relat ed drug testing. ? Performed by: [facility], [address], ? [place] [address], [employer]: Rose Lincoln, Ph.D. ? [facility] Urine specimen (specimen) 10/03/2010 16:38 EDT 10/03/2010 20:35 EDT Nini Quach MD URINALYSIS ANI NÚÑEZ [facility] [address] [place] [address] * DRUG SCREEN 6 (10/03/2010 16:38 EDT) Amphetamine Screen, Urine Negative screen. Confirmation testing available upon request. Suitable for medical purposes only. Will not detect all drugs within class. Cutoff = 1000 ng/ml [facility] Barbiturate Screen, Urine Negative screen. Confirmation testing available upon request. Suitable for medical purposes only. Will not detect all drugs within class. Cutoff = 300 ng/ml [facility] Benzodiazepine Screen, Urine Negative screen. Confirmation testing available upon request. Suitable for medical purposes only. Will not detect all drugs within class. Assay less sensitive to Lorazepam and metabolites. Cutoff = 200 ng/ml [facility] Cannabinoid Scrn, Ur Negative screen. Confirmation testing available upon request. Suitable for medical purposes only. Will not detect all drugs within class. Cutoff = 50 ng/ml [facility] Cocaine Metabolites, Ur Negative screen. Confirmation testing available upon request. Suitable for medical purposes only. Will not detect all drugs within class. Cutoff = 300 ng/ml [facility] Opiate Scrn, Ur Presumptive positive, interpret with caution. Confirmation testing available upon request. Suitable for medical purposes only. Will not detect all drugs within class. Cutoff = 300 ng/ml Does not detect oxycodone, oxycontin or methadone. [facility] Urine specimen (specimen) 10/03/2010 16:38 EDT 10/03/2010 20:35 EDT Nini Marian Quach MD URINALYSIS ANI NÚÑEZ [facility] Organization Address City/State/[facility] Co de Phone Number [facility] [address] [place] [address] documented in this encounter Visit Diagnoses Diagnosis Chronic pain syndrome- Primary Diabetes mellitus type II, uncontrolled Type II or unspecified type diabetes mellitus without mention of complication, uncontrolled documented in this encounter Care Teams Tube Drawer Relationship Specialty Start Date End Date Tamara Neal MD [address] [place] [phone] PCP - General 09/13/08 03/18/13 documented as of this encounter
--- OUTSIDE RECORDS SUMMARY | 2024-02-14 15:28 | XMS_ITS | Encounter Summary ---
Author Organization [facility] Address [address] [place] [address] Care Team Providers Care Ict Support Engineer Name Role Phone Tamara Neal MD Primary Care Provider + Encounter Details Date Type Department Care Team (Latest Contact Info) Description 11/14/2009 7:16 EDT - 11/14/2009 23:59 EDT Hospital Encounter [address] [address] Tamara Neal MD [address] [place] [phone] Discharge Disposition: Home or Self Care Social [...] Pain. 1-2 tab q 4-6 hr prn 50 Tab 0 11/10/2009 11/18/2009 pioglitazone (ACTOS) 15 mg tablet Take 1 [...] Code Departure Means Destination Home or Self Jail documented in this encounter Plan of Treatment Not on file documented as of this encounter Visit Diagnoses Not on filedocumented in this encounter Care Teams Ict Support Engineer Relationship Specialty Start Date End Date aTmara Neal MD [address] [place] [phone] PCP - General 09/13/08 03/18/13 documented as of this encounter
--- OUTSIDE RECORDS SUMMARY | 2024-02-14 15:28 | XMS_ITS | Encounter Summary ---
Author Organization [facility] Address [address] [place] [address] Care Team Providers Care Er Medical Technician Name Role Phone Tamara Neal MD Primary Care Provider + Reason for Visit * Reason Onset Date Comments Medications Refill 01/16/2010 Encounter Details Date Type Department Care Team (Late st Contact Info) Description 01/16/2010 Refill [facility] Family Medicine [address] [address] Tamara Neal MD [address] [place] [phone] Medications Refill Social History Tobacco Use Types [...] exceed 5 per day. 45 Tab 0 01/17/2010 02/15/2010 spironolactone (ALDACTONE) 25 mg tablet Take 1 Tab by mouth 2 times daily. 60 Tab 11 01/16/2010 07/13/2010 documented in this encounter Miscellaneous Notes * Telephone Encounter - Mikki Dorado - 01/17/2010 1233 EDT Last Percocet Rx 9.8.10 Last OV 9.8.10 Next OV 10.12.10 Patient is out of percocet. * Telephone Encounter - Awilda Fang, RN - 01/17/2010 1035 EDT Spironolactone 25 mg last ordered 09/28/09: 60 with 1 refill. Last potassium checked 10/10/09: 4.1 * Telephone Encounter - Arlene Mendoza - 01/16/2010 1510 EDT Last appt 01/04/10 Next appt 02/07/10 Last ordered 09/28/09 documented in this encounter Plan of Treatment Not on file documented as of this encounter Visit Diagnoses Not on filedocumented in this encounter Discontinued Medications Medication Sig Discontinue Reason Start Date End Da te spironolactone (ALDACTONE) 25 mg tablet Take 1 Tab by mouth 2 times daily. Reorder 09/28/2009 01/16/2010 oxycodone-acetaminophen (PERCOCET) 5-325 mg per tablet Take 1-2 Tabs by mouth every 8 hours as needed for Pain. Not to exceed 5 per day. Reorder 01/04/2010 01/17/2010 documented as of this encounter Care Teams Er Medical Technician Relationship Specialty Start Date End Date Tamara Neal MD [address] [place] [phone] PCP - General 09/13/08 03/18/13 documented as of this encounter
--- OUTSIDE RECORDS SUMMARY | 2024-02-14 15:28 | XMS_ITS | Encounter Summary ---
Author Organization [facility] Address [address] [place] [address] Care Team Providers Care Printing Bindery Assistant Name Role Phone Tamara Neal MD Primary Care Provider + Reason for Referral * Consult (Routine) - Closed Specialty Diagnoses / Procedures Referred By [facility] Referred To Contact Pain Medicine Diagnoses Low back pain Lumbar radiculopathy Marcin Chacko PA-C [address] [place] [phone] [facility] [address] [place] [address] Referral ID Status Reason Start Date Expiration Date V isits Requested Visits Authorized [id number] Closed Specialty Services Required 01/03/2010 1 1 Question Answer Reason for Request: TFESI L4-5 on the left Reason for Visit * Reason Onset Date Comments Follow-up 12/30/2009 Encounter Details Date Type Department Care Team (Late st Contact Info) Description 12/30/2009 Telephone [facility] Spine Program - [place] [place] [address] Marcin Chacko PA-C [address] [place] [phone] Follow-up Social History Tobacco Use Types Packs/Day [...] Miscellaneous Notes * Telephone Encounter - Kaia Downing - 01/04/2010 1015 EDT Called and spoke with pt about Inj apt and F/U with Dr. Orosco; Inj apt is set for Sat. 01/30 at 3:15pm check-in at 3pm, pt was told to stay off motrin from 01/26 until inj apt and to have local company hazmat driver, and was also given following apt date/time with RH; i 02/13/2010 MON 11:00A [facility] NORIS OROSCO MD,S [facility] FEB 25 * Telephone Encounter - aMrcin Chacko PA - 01/03/2010 0751 EDT I ordered a repeat injection. I will ask scheduling to set up a surgical consult. * Telephone Encounter - Kaia Downing - 12/30/2009 0842 EDT Pt calls today and wishes to move forward with second injection and surgical consult per plan last visit below; Plan:TFESI L4-5 on the left Activity as tolerated without limitation Continue current pain management regime Follow up PRN If her pain returns we could consider a second injection or a surgical consult if she wishes. Would you like her to follow-up with you after the injection or with the a surgeon from the consultvisit? documented in this encounter Plan of Treatment Scheduled Referrals Name Type Priority Associated Diagnoses Orde r Schedule AMB CONSULT PAIN CLINIC Outpatient Referral Routine Low back pain Lumbar radiculopathy 12/30/2009 documented as of this encounter Visit Diagnoses Diagnosis Low back pain Lumbago Lumbar radiculopathy Thoracic or lumbosacral neuritis or radiculitis, unspecified documented in this encounter Care Teams Printing Bindery Assistant Relationship Specialty Start Date End Date Tamara Neal MD [address] [place] [phone] PCP - General 09/13/08 03/18/13 documented as of this encounter
--- OUTSIDE RECORDS SUMMARY | 2024-02-14 15:28 | XMS_ITS | Encounter Summary ---
Author Organization [facility] Address [address] [place] [address] Care Team Providers Care Classified Advertising Manager Name Role Phone Tamara Neal MD Primary Care Provider + Reason for Referral * Consult (Routine) - Closed Specialty Diagnoses / Procedures Referred By Contrachell t Referred To Contact Endocrinology Diagnoses Diabetes mellitus type II, uncontrolled Marisol Veras MD [address] [place] [phone] [facility] Endocrinology [address] [place] [address] Referral ID Status Reason Start Date Expiration Date V isits Requested Visits Authorized [id number] Closed Specialty Services Required 09/27/2010 1 1 Question Answer Reason for Request: Poorly controlled type II diabetic. Please prenatal genetic counselor on diet modifications. * Consult (Routine) - Closed Specialty Diagnoses / Procedures [facility] Referred To Contact Orthopedic Surgery Diagnoses Hip pain Marisol Veras MD [address] [place] [phone] [facility] [address] [address] Referral ID Status Reason Start Date Expiration Date V isits Requested Visits Authorized [id number] Closed Specialty Services Required 09/27/2010 1 1 Question Answer Reason for Request: 35 y/o female with left hip pain x past year and abnormal MRI 09/11/2010. Comments Please refer to Hip Orthopedics. Reason for Visit * Reason Comments Hip Pain Ongoing left hip chau n. Wants to discuss MRI results Blood Sugar Problem Encounter Details Date Type Department Care Team (Late st Contact Info) Description 09/27/2010 15:00 EDT Office Visit [facility] - [address] [address] Unknown, Provider, Noemi Funk MD Fromhold, Karen L, MD [address] [place] [phone] Diabetes mellitus type II, uncontrolled ([facility]) (Primary Dx); Hip pain Social History Tobacco Use Types Packs/Day [...] Reading Time Taken Comments Blood Pressure 144/78 09/27/2010 1453 EDT Pulse 88 09/27/2010 1453 EDT Temperature - - Respiratory Rate - - Oxygen Saturation - - Inhaled Oxygen Concentration - - Weight 90.7 kg (200 lb) 09/27/2010 1453 EDT Height - - Body Mass Index 39.06 07/13/2010 1333 EDT documented in this encounter Patient Instructions * Patient Instructions* Marisol Veras MD - 09/27/2010 16:08 EDT Please have your medical records from Dr. Coe's office sent here. We will be unable to prescribe the Dilaudid pain medication without your medical records. Please discontinue the medication Cymbalta. Please keep a record of your blood sugars: First thing in the morning, before lunch, and before dinner. Bring this record to your visit early next week. documented in this encounter Progress Notes * Latesha Naqvi LPN - 09/27/2010 1614 EDT Recent Labs Basename 09/27/10 1611 ??? COLOR YELLOW ??? CLARITYU Clear ??? GLUCOSEUAPOC 3+* ??? BILIRUBIN 1+* ??? KETONES 1+* ? ? SPECGRAV >=1.030 ??? BLOOD 1+* ??? PHUA 5.0 ??? PROTEINUAPOC 1+* ??? UROBILINOGEN 0.2 ??? NITRITE Neg ??? LEUKESTER Neg Venipuncture also performed * Marisol Veras MD - 09/27/2010 1524 EDT Chief Complaint Patient presents with ??? Hip Pain Ongoing left hip pain. Wants to discuss MRI results ??? Blood Sugar Problem Left hip pain: Chronic x since 07/2009. Had herniated disc L4-L5 -- treated at pain clinic with steroid injections Pain clinic -- had an MRI done 09/11/10 (ordered by Dr. Coe) --thinks there were abnormalities Pain clinic started her on dilaudid, takes 8 mg tablets, takes them 1-2 tabs q4- 6 hours -- usually takes 4-[address] Coe has discharged her from his treatment No numbness or tingling in legs bilaterally, no urinary incontinence Radiation of pain down back of left leg Diabetes: Morning glucose between 189-250, usually checks before lunch 200-300s Feels sluggish, very tired when sugar is high Have had readings in 500s Last HA1c on 02/15/10: 7.3 Was on insulin during 3 years ago O: BP 144/78 Pulse 88 Wt 90.719 kg (200 lb) GEN: A&Ox3, NAD, obese CV: 2+ DP pulses bilaterally EXT: No pretibial edema, no calf tenderness bilaterally MS: Pain and limited ROM with external rotation of left hip, full internal rotation of left hip, full rom of right hip, pain over left lumbar para-spinous muscles with radiation down posterior left leg Neuro: Intact sensation of lower legs bilaterally MR EXTREMITY HIP W/CONTRAST September 11, 2010 05:09:00 PM Impression: 1. Focal small anterosuperior tear. 2. [...] medius tendon has a more normal appearance. Results for HILDA CROWLEY ( ) as of 09/27/2010 18:17 Ref. Range 09/27/2010 16:11 Color No range found YELLOW Clarity, UA No range found Clear Specific Novi Latest Range: 1.001-1.035 >=1.030 pH Latest Range: 4.6-8.0 5.0 Glucose Latest Range: NEG 3+ (A) Bilirubin Latest Range: NEG 1+ (A) Ketones Latest Range: Low: Negative mg/dL 1+ (A) Blood Latest Range: NEG 1+ (A) Protein Latest Range: NEG 1+ (A) Urobilinogen Latest Range: 0.2-1.0 E.U./dl 0.2 Nitrite Latest Range: NEG Neg Leuk Esterase Latest Range: NEG Neg A/P: 35 y/o female seen today for left hip pain and poorly controlled DM type 2. Hilda was seen today for hip pain and blood sugar problem. Diagnoses and associated orders for this visit: Diabetes mellitus type ii, uncontrolled - Hemoglobin A1c - POCT Urine Dipstick - Ambulatory Diabetes Education - Asked patient to record glucose TID and follow up in a few days - Patient will likely need additional Rx treatment in addition to metformin Hip pain Comments: left hip - Ambulatory Consult Orthopedics Follow up - Early next week Marisol Veras MD Attestation statement: I discussed the patient with the resident/fellow at the time of the visit yestarday and agree with the findings and plan of care. Noemi Funk MD 09/28/2010 7:22 documented in this encounter Plan of Treatment Scheduled Orders Name Type Priority Associated Diagnoses Orde r Schedule POCT URINE DIPSTICK Point of Care Testing Routine Diabetes mellitus type II, uncontrolled ([facility]) Ordered: 09/27/2010 Scheduled Referrals Name Type Priority Associated Diagnoses Orde r Schedule AMB CONSULT ORTHOPEDICS Outpatient Referral Routine Hip pain Ordered: 09/27/2010 AMB CONSULT DIABETES EDUCATION Outpatient Referral Routine Diabetes mellitus type II, uncontrolled ([facility]) Ordered: 09/27/2010 documented as of this encounter Procedures Procedure Name Priority Date/Time Associated Diagnosis Comments HEMOGLOBIN A1C Routine 09/27/2010 15:59 EDT Diabetes mellitus type II, uncontrolled ([facility]) documented in this encounter Results * HEMOGLOBIN A1C (09/27/2010 15:59 EDT) Hemoglobin A1C 9.0 % [facility] Comment: Reference Range: <5.7% Normal 5.7-6.4% Increased risk for diabetes =>6.5% Diagnostic for diabetes (if confirmed) ?? The A1c goal for non adults in general is <7%. ?? The A1c goal for selected patients may be significantly lower than 7% if this can be achieved without significant hypoglycemia or other adverse effects of treatment. Est Avg Glucose 212 mg/dl [facility] Comment:eAG represents the A 1c result expressed as average glucose in mg/dl. Blood specimen (specimen) 09/27/2010 15:59 EDT 09/27/2010 20:08 EDT Noemi Funk MD CHEMISTRY & BLOOD GA S ORDERABLES [facility] [address] [place] [address] documented in this encounter Visit Diagnoses Diagnosis Diabetes mellitus type II, uncontrolled- Primary Type II or unspecified type diabetes mellitus without mention of complication, uncontrolled Hip pain Pain in joint, pelvic region and thigh documented in this encounter Care Teams Classified Advertising Manager Relationship Specialty Start Date End Date Tamara Neal MD [address] [place] [phone] PCP - General 09/13/08 03/18/13 documented as of this encounter
--- OUTSIDE RECORDS SUMMARY | 2024-02-14 15:28 | XMS_ITS | Encounter Summary ---
Author Organization [facility] Address [address] [place] [address] Care Team Providers Care Graduate Assistant Athletic Trainer Name Role Phone Tamara Neal MD Primary Care Provider + Reason for Visit * Reason Onset Date Comments Follow-up 01/05/2010 Encounter Details Date Type Department Care Team (Late st Contact Info) Description 01/05/2010 Telephone [facility] Spine Program - [address] [place], [place] [phone] Marcin Chacko PA-C [address] [facility] [place] [place] [phone] Follow-up Social History Tobacco Use Types [...] * Telephone Encounter - Kaia Downing - 01/05/2010 0934 EDT Injection has been approved by Francia. Pt will have Injections on 01/30 and F/U with Dr. Orosco on 02/13. documented in this encounter Plan of Treatment Not on file documented as of this encounter Visit Diagnoses Not on filedocumented in this encounter Care Teams Graduate Assistant Athletic Trainer Relationship Specialty Start Date End Date Tamara Neal MD [address] [place] [phone] PCP - General 09/13/08 03/18/13 documented as of this encounter
--- OUTSIDE RECORDS SUMMARY | 2024-02-14 15:28 | XMS_ITS | Encounter Summary ---
Author Organization [facility] Address [address] [place] [address] Care Team Providers Care Wire Stitcher Name Role Phone Tamara Neal MD Primary Care Provider + Encounter Details Date Type Department Care Team (Latest Contact Info) Description 10/14/2009 14:00 EDT - 10/14/2009 23:59 EDT Hospital Encounter [facility] - Medical Office Building [phone] Tamara Neal MD [address] [place] [phone] Discharge Disposition: Home or Self Care Social [...] Muscle Spasms. 60 Tab 1 10/04/2009 01/04/2010 ibuprofen (MOTRIN) 200 mg tablet Take 3 Tabs by mouth every 6 hours as needed. 12/31/2013 levonorgestrel (MIRENA) 20 mcg/24 hr IUD 1 Each by Intrauterine route once. 08/26/2008 05/01/2013 metformin (GLUCOPHAGE) 1,000 mg tablet Take 1 Tab by mouth 2 times daily. 60 Tab 2 10/11/2009 02/15/2010 oxycodone-acetaminophe n (PERCOCET) 5-325 mg per tabletIndications:Low back pain Take 2 Tabs by mouth every 8 hours as needed for Pain. 1 tab q 4-6 hr prn 40 Tab 0 10/04/2009 10/19/2009 pioglitazone (ACTOS) 15 mg tablet Take 1 [...] filedocumented in this encounter Care Teams Wire Stitcher Relationship Specialty Start Date End Date Tamara Neal MD [address] [place] [phone] PCP - General 09/13/08 03/18/13 documented as of this encounter
--- OUTSIDE RECORDS SUMMARY | 2024-02-14 15:28 | XMS_ITS | Encounter Summary ---
Author Organization [facility] Address [address] [place] [address] Care Team Providers Care Global Human Resources Director Name Role Phone Tamara Neal MD Primary Care Provider + Reason for Visit * Reason Onset Date Comments Eye Problem 07/25/2010 Encounter Details Date Type Department Care Team (Late st Contact Info) Description 07/25/2010 Telephone [facility] Family Medicine - [address] [phone] Tamara Neal MD [address] [place] [phone] Eye Problem Social History Tobacco Use Types Packs/Day [...] Telephone Encounter - Santa Guerrero RN - 07/25/2010 1120 EDT SEE PREVIOUS PHONE CALL * Telephone Encounter - Almita Ponce - 07/25/2010 1116 EDT Eye is twitching from the Neurontin. She left this message the other day but the number was not correct so she did not get the messages that were left documented in this encounter Plan of Treatment Not on file documented as of this encounter Visit Diagnoses Not on filedocumented in this encounter Care Teams Global Human Resources Director Relationship Specialty Start Date End Date Tamara Neal MD [address] [place] [phone] PCP - General 09/13/08 03/18/13 documented as of this encounter
--- OUTSIDE RECORDS SUMMARY | 2024-02-14 15:28 | XMS_ITS | Encounter Summary ---
Author Organization [facility] Address [address] [place] [address] Care Team Providers Care Terry Cloth Cutter Hand Name Role Phone Tamara Neal MD Primary Care Provider + Reason for Visit * Reason Onset Date Comments Back Pain 02/02/2010 Encounter Details Date Type Department Care Team (Late st Contact Info) Description 02/02/2010 Orders Only [facility] Spine Program - [address] [address] Shayy Orosco MD [address] [place] [address] [place] [phone] Lumbago (Primary Dx) Social History Tobacco [...] Primary documented in this encounter Care Teams Terry Cloth Cutter Hand Relationship Specialty Start Date End Date Tamara Neal MD [address] [place] [phone] PCP - General 09/13/08 03/18/13 documented as of this encounter
--- OUTSIDE RECORDS SUMMARY | 2024-02-14 15:28 | XMS_ITS | Encounter Summary ---
Author Organization [facility] Address [address] [place] [address] Care Team Providers Care Waist Presser Name Role Phone Tamara Neal MD Primary Care Provider + Encounter Details Date Type Department Care Team (Late st Contact Info) Description 09/27/2010 Results Only [facility] [phone] Point, Of Care User [address] [place] [address] Social History Tobacco Use Types Packs/Day Years [...] Name Priority Date/Time Associated Diagnosis Comments POCT URINALYSIS Routine 09/27/2010 16:11 EDT documented in this encounter Results * (ABNORMAL) POCT URINALYSIS (09/27/2010 16:11 EDT) Color YELLOW [facility] Clarity, UA Clear [facility] Glucose 3+(A) NEG [facility] Bilirubin 1+(A) NEG [facility] Ketones 1+(A) NEG [facility] Specific [place] >=1.030 1.001 - 1.035 [facility] Blood 1+(A) NEG [facility] pH 5.0 4.6 - 8.0 [facility] Protein 1+(A) NEG [facility] Urobilinogen 0.2 0.2 - 1.0 E.U./dl [facility] Nitrite Neg NEG [facility] Leuk Esterase Neg NEG [facility] sash sticker ID [id number] Test performed at [facility] 09/27/2010 16:1 1 EDT 09/27/2010 16:14 EDT Of Care User Point POINT OF CARE TEST O RDERABLES [facility] [address] [place] [address] documented in this encounter Visit Diagnoses Not on filedocumented in this encounter Care Teams Waist Presser Relationship Specialty Start Date End Date Tamara Neal MD [address] [place] [phone] PCP - General 09/13/08 03/18/13 documented as of this encounter
--- OUTSIDE RECORDS SUMMARY | 2024-02-14 15:28 | XMS_ITS | Encounter Summary ---
Author Organization [facility] Address [address] [place] [address] Care Team Providers Care Floral Decorator Name Role Phone Tamara Neal MD Primary Care Provider + Reason for Visit * Reason Comments Joint Pain for about a month Fatigue feels like in a fog Encounter Details Date Type Department Care Team (Late st Contact Info) Description 07/13/2010 13:30 EDT Office Visit [facility] Medicine [address] [address] Unknown, Provider, Danelle Olmos MD Paavola, Michelle, MD Joint pain (Primary Dx); Fatigue Social History Tobacco Use Types Packs/Day Years [...] Sign Reading Time Taken Comments Blood Pressure 128/80 07/13/2010 1333 EDT Pulse 60 07/13/2010 1333 EDT Temperature 36.9 ??C (98.4 ??F) 07/13/2010 1333 EDT Respiratory Rate - - Oxygen Saturation - - Inhaled Oxygen Concentration - - Weight 94.8 kg (209 lb) 07/13/2010 1333 EDT Height 152.4 cm (5') 07/13/2010 1333 EDT Body Mass Index 40.82 07/13/2010 1333 EDT documented in this encounter Ordered Prescriptions Prescription Sig Dispensed Refills Start Date End Da te gabapentin (NEURONTIN) 100 mg capsuleIndications:Joint pain Take 1 Cap by mouth 3 times daily. 90 Cap 2 07/13/2010 08/01/2010 documented in this encounter Progress Notes * Beth Jewell - 07/13/2010 1519 EDT Venipuncture performed per order of Dr Shazia Tanner. Beth Jewell MA * Shazia Tanner - 07/13/2010 1342 EDT Subjective: Patient ID: Guzman Jean is an 34 y.o. female. Chief Complaint Patient presents with ??? Joint Pain for about a month ??? Fatigue feels like in a fog HPI Comments: Guzman complains of being tired all the time. Has had to call out of work due to tiredness and reports she is a workaholic. Has difficulty waking up. This has been a problem for about a month. Sleep at night varies, but generally she does not sleep much due to pain. Has been taking trazodone for this and she now needs 3-2 to help. Does see Dr. Mcdonald for lumbar back pain and is getting monthly injections and is prescribed hydromorphone which she takes 2-3 times per day. Patient had to call parents to come and get her 2 year old. Also complaining of joint pain involving her left shoulder and both hips for the past 6 weeks. Thispain is bad first thing in the morning and rated 5/10 and then after a 2-3 hours feels better, but never goes away. By the end of the day pain is up to 7/10. Has had diarrhea since 11/2009. Taking immodium daily. This has been going on since gall bladder removed. Reports acetaminophen does not help with pain. Patient Active Problem List Diagnoses Code ??? Routine general medical examination at health care facility V70.0A ??? Type 2 diabetes mellitus without (mention of) complications 250.00FM ??? Polycystic ovaries 256.4 ??? Contraceptive management V25.9B ??? Insertion of (intrauterine) contraceptive device V25.11H ??? Left buttock pain 729.1CN Past Medical History Diagnosis Date ??? Type 2 diabetes mellitus without (mention of) complications 02/15/2005 ??? Routine general medical examination at health care facility 02/15/2005 ??? Polycystic ovaries 01/21/2008 Current outpatient prescriptions ordered prior to encounter Medication Sig Dispense Refill ??? HYDROmorphone (DILAUDID) 8 mg tablet Take 8 mg by mouth every 4 hours as needed. 1-2 tabs. q4-6hprn ??? trazodone (DESYREL) 50 mg tablet Take 0.5-1 Tabs by mouth at bedtime. Take half to one tablet at bedtime 30 Tab 5 ??? metformin (GLUCOPHAGE) 1,000 mg tablet Take 1 Tab by mouth 2 times daily. 60 Tab 5 ??? cyclobenzaprine (FLEXERIL) 10 mg tablet Take 20 mg by mouth 2 times daily. ??? levonorgestrel (MIRENA) 20 mcg/24 hr IUD 1 Each by Intrauterine route once. 08/26/2008 ??? citalopram (CELEXA) 40 mg tablet Take 1 Tab by mouth daily. 30 Each 5 ??? ibuprofen (MOTRIN) 200 mg tablet Take [...] Alcohol Use: No Review of Systems Constitutional: Positive for malaise/fatigue. Negative for fever, chills and weight loss. Cardiovascular: Negative for chest pain and palpitations. Gastrointestinal: Positive for diarrhea. Negative for nausea, vomiting and abdominal pain. Musculoskeletal: Positive for myalgias and joint pain. Psychiatric/Behavioral: Negative for depression. - See HPI Objective: BP 128/80 Pulse 60 Temp(Src) 36.9 ??C (98.4 ??F) (Oral) Ht 152.4 cm (60) Wt 94.802 kg (209lb) BMI 40.82 kg/m2 Physical Exam Nursing note and vitals reviewed. Constitutional: She is oriented to person, place, and time. She appears well- developed and well-nourished. No distress. HENT: Head: Normocephalic and atraumatic. Eyes: Conjunctivae are normal. Pupils are equal, round, and reactive to light. Musculoskeletal: See Below. No obvious deformity in shoulders. ROM is full. No obvious deformity in hips. ROM is limited by pain in external rotation bilaterally. Neurological: She is alert and oriented to person, place, and time. Skin: Skin is warm and dry. Psychiatric: She has a normal mood and affect. Her behavior is normal. Fibromyalgia Points Under lower sternomastoid: Right: + Left + Near 2nd costochondral junction: Right Neg Left Neg 2 cm distal to lateral epicondyle: Right Neg Left Neg At the prominence of greater trochanter: Right + Left + At the medial fat pad: Right Neg Left Neg Insertion of suboccipital muscle: Right + Left + Mid upper trapezius: Right + Left + Origin of supraspinatus: Right + Left + Upper outer quadrant of buttock: Right + Left + Control locations: Forehead: Top of thumbs: Right Neg Left Neg Extensor forearms: Right Neg Left Neg Assessment/Plan: Guzman was seen today for joint pain and fatigue. Diagnoses and associated orders for this visit: Joint pain: Possible diagnosis is fibromyalgia given tenderness in 12 trigger points and no tenderness at control points. Other possible etiology is poor physical conditioning as patient is overweight and sedentary. Will rule out rheumatologic disorder. - Advised patient to try exercise as this was first line treatment for joint pain and fibromyalgia. - Thyroid [place] - Rheumatoid Factor - Sed. Rate:Westergren - gabapentin (NEURONTIN) 100 mg capsule; Take 1 Cap by mouth 3 times daily. Fatigue: Also possibly secondary to sedentary lifestyle and poor physical conditioning. - Thyroid [place] Shazia Tanner MD Unit Aid PGY2 Pager [phone] Attestation statement: I discussed the patient with the resident/fellow at the time of the visit and agree with the findings and the plan of care documented in the resident's/fellow's note. Danelle Olmos MD, MD 07/19/2010 14:22 documented in this encounter Plan of Treatment Not on file documented as of this encounter Procedures Procedure Name Priority Date/Time Associated Diagnosis Comments THYROID CASCADE Routine 07/13/2010 14:19 EDT Joint pain Fatigue SED RATE Routine 07/13/2010 14:19 EDT Joint pain RHEUMATOID FACTOR Routine 07/13/2010 14: 19 EDT Joint pain documented in this encounter Results * SED. RATE:WESTERGREN (07/13/2010 14:19 EDT) Sed. Rate W[place]gren 10 0 - 20 mm/hr [facility] Blood specimen (specimen) 07/13/2010 14:19 EDT 07/13/2010 17:54 EDT Danelle Olmos MD HEMATOLOGY & PF4 ORD ERABLES Performing Organization Address [facility] [[email or web address]] Co de Phone Number [facility] [address] [place] [address] * RHEUMATOID FACTOR (07/13/2010 14:19 EDT) Rheumatoid Factor <20 <20 IU/ml [facility] Blood specimen (specimen) 07/13/2010 14:19 EDT 07/13/2010 17:54 EDT Danelle Olmos MD CHEMISTRY & BLOOD GA S ORDERABLES Performing Organization Address [facility] [[email or web address]] Co de Phone Number [facility] [address] [place] [address] * THYROID CASCADE (07/13/2010 14:19 EDT) TSH 0.80 0.35 - 5.00 uIU/ml [facility] Comment: ??TSH cascade is not recommended for patients in which pituitary or hypothalamic disorders are suspected. Blood specimen (specimen) 07/13/2010 14:19 EDT 07/13/2010 17:54 EDT Danelle Olmos MD CHEMISTRY & BLOOD GA S ORDERABLES [facility] [address] [place] [address] documented in this encounter Visit Diagnoses Diagnosis Joint pain- Primary Pain in joint, site unspecified Fatigue Other malaise and fatigue documented in this encounter Discontinued Medications Medication Sig Discontinue Reason Start Date End Da te cholestyramine (QUESTRAN) 4 gram packet Take 1 Packet by mouth 2 times daily. Therapy completed 02/15/2010 07/13/2010 glipiZIDE (GLUCOTROL XL) 2.5 mg CR tablet Take 1 Tab by mouth daily. Therapy completed 03/16/2010 07/13/2010 oxycodone-acetaminophen (PERCOCET) 5-325 mg per tablet Take 1-2 Tabs by mouth every 8 hours as needed for Pain. Not to exceed 5 per day. Therapy completed 03/01/2010 07/13/2010 spironolactone (ALDACTONE) 25 mg tablet Take 1 Tab by mouth 2 times daily. Therapy completed 01/16/2010 07/13/2010 documented as of this encounter Care Teams Floral Decorator Relationship Specialty Start Date End Date Tamara Neal MD [address] [place] [phone] PCP - General 09/13/08 03/18/13 documented as of this encounter
--- OUTSIDE RECORDS SUMMARY | 2024-02-14 15:28 | XMS_ITS | Encounter Summary ---
Author Organization [facility] Address [address] [place] [address] Care Team Providers Care Food Service Name Role Phone Tamara Neal MD Primary Care Provider + Reason for Visit * Reason Onset Date Comments Hip Pain 09/01/2010 Encounter Details Date Type Department Care Team (Late st Contact Info) Description 09/01/2010 Telephone [facility] Family Medicine - [address] [phone] Tamara Neal MD [address] [place] [phone] Hip Pain Social History Tobacco Use Types [...] Telephone Encounter - Awilda Fang RN - 09/04/2010 0819 EDT All documentation reviewed and approved. Awilda Fang RN 09/04/2010 8:19 * Telephone Encounter - Latesha Naqvi LPN - 09/02/2010 1243 EDT Patient states she is on Cymbalta as well as a muscle relaxant lately. 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 Says she feels some popping and crunching in the left hip. Has an MRI scheduled for this. When she tries to climb on to bed, or stairs the hip is popping. Pain is currently 9/10. Patient advised no appt available here today, did recommend ER vs. WICC for visit this weekend. Patient states that if she cannot get to ER she would like an appt on Saturday. Scheduled @ 09/04/10 @ 3:30 pm. Patient Education Topic: Hip pain Method: Verbal Taught to: Patient Barriers: None Outcomes: independent and verbalized understanding * Telephone Encounter - Nadine Stewart - 09/01/2010 5827 EDT Patient called wanted to figure out if her hip is out of the joint, please call. She is having painin her hip. documented in this encounter Plan of Treatment Not on file documented as of this encounter Visit Diagnoses Not on filedocumented in this encounter Care Teams Food Service Relationship Specialty Start Date End Date Tamara Neal MD [address] [place] [phone] PCP - General 09/13/08 03/18/13 documented as of this encounter
--- OUTSIDE RECORDS SUMMARY | 2024-02-14 15:28 | XMS_ITS | Encounter Summary ---
Author Organization [facility] Address [address] [place] [address] Care Team Providers Care Metal Melter Name Role Phone Tamara Neal MD Primary Care Provider + Reason for Visit * Reason Onset Date Comments Medications Refill 11/07/2009 Encounter Details Date Type Department Care Team (Late st Contact Info) Description 11/07/2009 Refill [facility] Family Medicine [address] [address] Tamara Neal MD [address] [place] [phone] Medications Refill Social History Tobacco Use Types [...] hr prn 50 Tab 0 11/10/2009 11/18/2009 documented in this encounter Miscellaneous Notes * Telephone Encounter - Awilda Fang RN - 11/07/2009 1054 EDT Pt had called for medication refill 11/03/09. Dr. Tanner gave 40 tablets to get pt through until in office on 11/07/09. Pt states she will be due for medication refill 11/10/09. * Telephone Encounter - Carolann Lawrence - 11/07/2009 0929 EDT Last visit 10/04/09. Next visit 11/29/09. Last refill 11/03/09. Pt will be out on 11/10/09 documented in this encounter Plan of Treatment Not on file documented as of this encounter Visit Diagnoses Diagnosis Low back pain- Primary Lumbago documented in this encounter Discontinued Medications Medication Sig Discontinue Reason Start Date End Da te oxycodone-acetaminophen (PERCOCET) 5-325 mg per tabletIndications:Low back pain Take 1-2 Tabs by mouth 4 times daily as needed for Pain. 1-2 tab q 4-6 hr prn Reorder 11/03/2009 11/07/2009 documented as of this encounter Care Teams Metal Melter Relationship Specialty Start Date End Date Tamara Neal MD [address] [place] [phone] PCP - General 09/13/08 03/18/13 documented as of this encounter
--- OUTSIDE RECORDS SUMMARY | 2024-02-14 15:28 | XMS_ITS | Encounter Summary ---
Author Organization [facility] Address [address] [place] [address] Care Team Providers Care Wind Energy Project Manager Name Role Phone Tamara Neal MD Primary Care Provider + Encounter Details Date Type Department Care Team (Latest Contact Info) Description 09/11/2010 14:42 EDT - 09/11/2010 23:59 EDT Hospital Encounter [address] [address] [place] [address] [place] [phone] Discharge Disposition: Home or Self Care Social [...] times daily as needed for Muscle Spasms. 30 Tab 3 08/01/2010 11/14/2010 duloxetine (CYMBALTA) 20 mg capsuleIndications:Ch ronic pain syndrome Take 1 Cap by mouth daily. 30 Cap 2 08/01/2010 10/06/2010 fluticasone (FLONASE) 50 mcg/Actuation nasal sprayIndications:Pelon rgic rhinitis 1 [place] by Nasal route daily. 1 Bottle 2 08/01/2010 09/24/2012 HYDROmorphone (DILAUDID) 8 mg tablet Take 8 mg by mouth every 4 hours as needed. 1-2 tabs. q4-6hprn 03/16/2010 10/12/2010 ibuprofen (MOTRIN) 200 mg tablet Take 3 Tabs by mouth every 6 hours as needed. 12/31/2013 levonorgestrel (MIRENA) 20 mcg/24 hr IUD 1 Each by Intrauterine route once. 08/26/2008 05/01/2013 metformin (GLUCOPHAGE) 1,000 mg tablet Take 1 Tab by mouth 2 times daily. 60 Tab 5 02/15/2010 02/06/2011 trazodone (DESYREL) 100 mg tabletIndications:Chr onic pain syndrome Take 1 Tab by mouth at bedtime. Take half to one tablet at bedtime 90 Tab 4 08/01/2010 08/14/2011 documented as of this encounter Discharge Disposition Disposition Code Departure Means Destination Home or Self Penitentiary documented in this encounter Miscellaneous Notes * Scanned Note-Null - Pyrometer Mechanic, Scan - 09/11/2010 0000 EDT documented in this encounter Plan of Treatment Not on file documented as of this encounter Visit Diagnoses Not on filedocumented in this encounter Care Teams Wind Energy Project Manager Relationship Specialty Start Date End Date Tamara Neal MD [address] [place] [phone] PCP - General 09/13/08 03/18/13 documented as of this encounter
--- OUTSIDE RECORDS SUMMARY | 2024-02-14 15:28 | XMS_ITS | Encounter Summary ---
Author Organization [facility] Address [address] [place] [address] Care Team Providers Care Beveling Machine Operator Name Role Phone Tamara Neal MD Primary Care Provider + Reason for Visit * Reason Comments Hip Pain Diabetes Pt states her glipiz ied is making her nauseous Encounter Details Date Type Department Care Team (Late st Contact Info) Description 10/10/2010 15:45 EDT Office Visit [facility] Medicine [address] [address] Tamara Neal MD [address] [place] [phone] Type 2 diabetes mellitus without (mention of) complications; Left hip pain Social History Tobacco Use [...] Sign Reading Time Taken Comments Blood Pressure 118/68 10/10/2010 1558 EDT Pulse 80 10/10/2010 1558 EDT Temperature - - Respiratory Rate - - Oxygen Saturation - - Inhaled Oxygen Concentration - - Weight 93 kg (205 lb) 10/10/2010 1558 EDT Height - - Body Mass Index 40.04 07/13/2010 1333 EDT documented in this encounter Ordered Prescriptions Prescription Sig Dispensed Refills Start Date End Da te pioglitazone (ACTOS) 15 mg tablet Take 1 Tab by mouth daily. 30 Tab 3 10/10/2010 12/12/2010 documented in this encounter Progress Notes * Tamara Neal MD - 10/10/2010 5647 EDT S: here to f/u on diabetes as well as left hip pain HgA1C was elevated to [address] Veras added Glipizide 5 mg daily to her regimen. Makes her nauseated and vomiting daily. Never seemed to lower sugars, fasting still > 200-250s Used ACtos last fall but for some reason did not continue (Seems patient thought only 1 month trialbut did not follow up). Upon review of my notes she stopped because was afraid of CV side effects/risks but is willing to try again For left hip pain has been seen and traeted by Dr. Coe at [facility] (private pain clinic). We received notes through 04/2010 but none more recently. Last week we did get copy of Dilaudid Rx for 8 mg 1-2 tabs q4-6 hrs prn #60 Guzman notes he gave her copies of notes but only through May 2010. She is happy to bring these in for us to copy. Per Dr. Veras's notes we need more recent clinic notes before can consider prescribing narcoticsat [facility]. Also seen by ortho, had left hip MRI. Await surgical ortho eval in early October (Dr. Moffett) O: BP 118/68 Pulse 80 Wt 92.987 kg (205 lb) Gen - well INAD A/P Left hip pain Need office notes from May - August [address] Coe office WE have contacted this office to get notes faxed to us Appreciate ortho evamadou Hinds also to drop off whatever clinic notes she has for us to review Will be due for Dilaudid Rx on Fri this week (10/13) but only to get Rx once these notes reviewed I also explained that we may decide narcotics is NOT the way to go and may wean her from them if wedo not feel best plan of care for her Diabetes - stop Glipizide for now Re-start ACtos 15 mg daily and con't Metformin 1000 mg bid F/u 1 mos or sooner prn documented [...] Discontinue Reason Start Date End Da te glipiZIDE (GLUCOTROL) 5 mg tabletIndications:Diabetes mellitus type II, uncontrolled Take 1 Tab by mouth daily. Side effects 10/02/2010 10/10/2010 documented as of this encounter Care Teams Beveling Machine Operator Relationship Specialty Start Date End Date Tamara Neal MD [address] [place] [phone] PCP - General 09/13/08 03/18/13 documented as of this encounter
--- OUTSIDE RECORDS SUMMARY | 2024-02-14 15:28 | XMS_ITS | Encounter Summary ---
Author Organization [facility] Address [address] [place] [id number] Care Team Providers Care Landfill Grader Name Role Phone Tamara Nela MD Primary Care Provider + Encounter Details Date Type Department Care Team (Late st Contact Info) Description 08/09/2010 Results Only Imaging [facility] [phone] [place] [address] [place] [address] Social History Tobacco Use Types Packs/Day Years [...] Priority Date/Time Associated Diagnosis Comments MR EXTREMITY HIP W CONTRAST 09/11/2010 17:09 EDT documented in this encounter Results * MR EXTREMITY HIP W CONTRAST (09/11/2010 17:09 EDT) Anatomical Region Laterality Modality Other 09/11/2010 17:0 9 EDT 09/12/2010 10:55 EDT Narrative 09/12/2010 10:55 EDT MR EXTREMITY HIP W/CONTRAST ??September 11, 2010 05:09:00 PM Clinical History/Comments: Hip and back pain. Comparison: None. Technique: MR imaging of the left hip is performed following injection of a dilute gadolinium solution into the left femoral acetabular joint space with 7 sequences obtained. Findings: Only the left hip is evaluated. Increased image noise on some sequences due to the patient's size. Successful intra-articular injection of contrast into the left femoral acetabular joint space. There is contrast penetration into a small [...] need to be correlated clinically. Gluteus minimus shows mild thickening consistent with mild tendinopathy at its [...] medius tendon has a more normal appearance. Procedure Note 09/12/2010 MR EXTREMITY HIP W/CONTRAST September 11, 2010 05:09:00 PM Clinical History/Comments: Hip and back pain. Comparison: None. Technique: MR imaging of the left hip is performed following injection of a dilute gadolinium solution into the left femoral acetabular joint space with 7 sequences obtained. Findings: Only the left hip is evaluated. Increased image noise on some sequences due to the patient's size. Successful intra-articular injection of contrast into the left femoral acetabular joint space. There is contrast penetration into a small [...] need to be correlated clinically. Gluteus minimus shows mild thickening consistent with mild tendinopathy at its [...] medius tendon has a more normal appearance. Roland MEJIA MRI ORDERABLES documented in this encounter Visit Diagnoses Not on filedocumented in this encounter Care Teams Landfill Grader Relationship Specialty Start Date End Date Tamara Neal MD [address] [place] [phone] PCP - General 09/13/08 03/18/13 documented as of this encounter
--- OUTSIDE RECORDS SUMMARY | 2024-02-14 15:28 | XMS_ITS | Encounter Summary ---
Author Organization [facility] Address [address] [place] [address] Care Team Providers Care Graphic Design Intern Name Role Phone Tamara eNal MD Primary Care Provider + Reason for Visit * Reason Comments Joint Pain Guzman is here for a follow-up on her joint pain and fatigue--discuss a change in her medication Facial Pain Pt also notes that s he has had cold s/s on/off since Saturday. Sinus pain/pressure with post-nasal drip, sore throat and cough Headache Cough Encounter Details Date Type Department Care Team (Late st Contact Info) Description 08/01/2010 14:30 EDT Office Visit [facility] Family Medicine - [address] [address] Unknown, Provider, Chetna Vicente MD Stein, Arlene Guerrero MD [address] [place] [address] [address] [place] [address] Allergic rhinitis (Primary Dx); Chronic pain syndrome Social History Tobacco Use [...] Sign Reading Time Taken Comments Blood Pressure 144/88 08/01/2010 1423 EDT Pulse 78 08/01/2010 1423 EDT Temperature 36.2 ??C (97.2 ??F) 08/01/2010 1423 EDT Respiratory Rate - - Oxygen Saturation - - Inhaled Oxygen Concentration - - Weight 94.3 kg (208 lb) 08/01/2010 1423 EDT Height - - Body Mass Index 40.62 07/13/2010 1333 EDT documented in this encounter Patient Instructions * Patient Instructions* Arlene Aly - 08/01/2010 14:38 EDT Start cymbalta Start taking trazodone 1/2 tab then increase to a full tab if no side effects documented in this encounter Ordered Prescriptions Prescription Sig Dispensed Refills Start Date End Da te cyclobenzaprine (FLEXERIL) 10 mg tabletIndications:Chronic pain syndrome Take 1 Tab by mouth 3 times daily as needed for Muscle Spasms. 30 Tab 3 08/01/2010 11/14/2010 fluticasone (FLONASE) 50 mcg/Actuation nasal sprayIndications:Allergic rhinitis 1 [place] by Nasal route daily. 1 Bottle 2 08/01/2010 09/24/2012 duloxetine (CYMBALTA) 20 mg capsuleIndications:Chroni c pain syndrome Take 1 Cap by mouth daily. 30 Cap 2 08/01/2010 10/06/2010 cyclobenzaprine (FLEXERIL) 10 mg tabletIndications:Chronic pain syndrome Take 2 Tabs by mouth 2 times daily. 30 Tab 3 08/01/2010 08/01/2010 trazodone (DESYREL) 100 mg tabletIndications:Chronic pain syndrome Take 1 Tab by mouth at bedtime. Take half to one tablet at bedtime 90 Tab 4 08/01/2010 08/14/2011 documented in this encounter Progress Notes * Arlene Aly - 08/01/2010 1428 EDT Family Medicine Office Visit Subjective: Guzman Jean presents for evaluation of headache and sinus pressure. Symptoms started about a week ago. Gets cortisone shots last week. Cough nonproductive. Worse when laying down Wants to see if there is anything more that she can use for pain. Tried Neurontin but had eye lid twitching she could not tolerate. Used Lyrica but had headaches in the past with this. Having increased difficulty sleeping. Has run out of Flexeril. Trazodone isn't helping as much as it has in the past. Was told about Cymbalta or amitriptyline. Had injection on Saturday but only helped for a couple days. Pain center is considering sending her to orthopedics since they saw a bone spur on radiograph with injection last week. ROS: no sore throat, + congestion, no fever, left ear pain, no difficulty hearing, + cough, no chest pain, no shortness of breath, no wheezing, no abdominal pain, no rash, no myalgias History Smoking status ??? Former Smoker -- 1.0 packs/day for 5 years ??? Types: Cigarettes ??? Quit date: 08/23/2007 Smokeless tobacco ??? Not on file Past Medical: no history of allergies, no history of asthma, + use of inhaler in the past, + use ofsteroids in the past, no hospitalizations for asthma/bronchitis, pneumonia Objective: Blood pressure 144/88, pulse 78, temperature 36.2 ??C (97.2 ??F), temperature source Oral, weight 94.348 kg (208 lb). Gen: NAD, obese white female Psych: flat affect, good eye contact, well dressed and groomed Eyes: Eye exam is normal - ETTA, EOMI, no periorbital cellulitis, no injection. Ear exam - Ears - bilateral TM's and external ear canals normal. Nasal exam; septum midline, no deformities, nares patent, mucosa erythematous, somewhat swollen, nopolyps, no bleeding. Throat exam: Throat pink. Oral cavity, tongue, and palate have no inflammation or suspicious lesions. Tonsils - tonsils are present and normal. Teeth normal without tenderness. Neck: supple, no adenopathy CV: S1S2 RRR, no murmurs, rubs or gallops Lungs: CTAB, no wheezes, rhonchi, or rales Assessment/Plan: Guzman Jean is a 35 y.o. female with: Guzman was seen today for joint pain, facial pain, headache and cough. Diagnoses and associated orders for this visit: Allergic rhinitis - fluticasone (FLONASE) 50 mcg/Actuation nasal spray; 1 [place] by Nasal route daily. Chronic pain syndrome - trazodone (DESYREL) 100 mg tablet; Take 1 Tab by mouth at bedtime. Take half to one tablet at bedtime - duloxetine (CYMBALTA) 20 mg capsule; Take 1 Cap by mouth daily. - cyclobenzaprine (FLEXERIL) 10 mg tablet; Take 1 Tab by mouth 3 times daily as needed for Muscle Spasms. Follow up in: 1.5 months -Arlene Aly MD PGY-3 Pager #[phone] 08/01/2010 14:57 Attestation statement: I discussed the patient with the resident/fellow at the time of the visit and agree with the findings and plan of care. Chetna Vicente MD 08/01/2010 20:24 documented in this encounter Plan of Treatment Not on file documented as of this encounter Visit Diagnoses Diagnosis Allergic rhinitis- Primary Allergic rhinitis, cause unspecified Chronic pain syndrome documented in this encounter Discontinued Medications Medication Sig Discontinue Reason Start Date End Da te trazodone (DESYREL) 50 mg tablet Take 0.5-1 Tabs by mouth at bedtime. Take half to one tablet at bedtime Reorder 03/16/2010 08/01/2010 cyclobenzaprine (FLEXERIL) 10 mg tablet Take 20 mg by mouth 2 times daily. Reorder 01/25/2010 08/01/2010 citalopram (CELEXA) 40 mg tablet Take 1 Tab by mouth daily. 09/06/2009 08/01/2010 gabapentin (NEURONTIN) 100 mg capsuleIndications:Joint pain Take 1 Cap by mouth 3 times daily. 07/13/2010 08/01/2010 cyclobenzaprine (FLEXERIL) 10 mg tabletIndications:Chroni c pain syndrome Take 2 Tabs by mouth 2 times daily. Reorder 08/01/2010 08/01/2010 documented as of this encounter Care Teams Graphic Design Intern Relationship Specialty Start Date End Date Tamara Neal MD [address] [place] [phone] PCP - General 09/13/08 03/18/13 documented as of this encounter
--- OUTSIDE RECORDS SUMMARY | 2024-02-14 15:28 | XMS_ITS | Encounter Summary ---
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
--- OUTSIDE RECORDS SUMMARY | 2024-02-14 15:28 | XMS_ITS | Encounter Summary ---
Author Organization [facility] Address [address] [place] [address] Care Team Providers Care Migratory Worker Name Role Phone Tamara Neal MD Primary Care Provider + Reason for Visit * Reason Comments Hip Pain left Encounter Details Date Type Department Care Team (Late st Contact Info) Description 11/06/2010 13:00 EDT Office Visit [facility] Sports Medicine Program - [address] [address] Alberto Moffett MD [address] [place] [address] Left hip pain; Left buttock pain Social History Tobacco Use Types Packs/Day [...] - - Weight 93 kg (205 lb) 11/06/2010 1253 EDT Height 154.9 cm (5' 1) 11/06/2010 1253 EDT Body Mass Index 38.73 11/06/2010 1253 EDT documented in this encounter Progress Notes * Alberto Moffett MD - 11/09/2010 1529 EDT Sports Medicine Service [facility] [address] [place] [id number] PROGRESS/FOLLOWUP NOTE - 11/06/2010 PROBLEM: Left hip pain. HISTORY OF PRESENT ILLNESS: Guzman is a 35-year-old female who presents to the Sports and Shoulder Service at [facility] for evaluation of chronic left hip pain. This pain began on 08/16/2009. 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 She lifted thisperson and twisted and developed an acute sharp pain, which initially localized to what sounds likethe sacral region. She has no prior history of left hip problems or low back problems. The pain wasso severe she actually presented to the hospital. She was seen by BASILIO Rene from the [facility]. She apparently had a surgical consultation with Aileen Orosco which she ultimately did not showfor. She came under the care of Dr Roland Coe. It was felt that she likely had a lumbar disk herniation. She underwent what sounds like multiple lumbar spine injections, which gave her no relief. She says that about 6 months ago, the pain migrated into her hip region. She complains of pain radiating from her groin to the posterolateral aspect of her hip. She does not have any neurologic symptoms. She does have what she describes as intermittent locking. Her pain is worse with sitting, standing, lying on her left side, twisting and spreading her legs apart. She says that nothing makes it better. She rates her hip at 20% of normal and the pain does affect her sleep. She has not had any physical therapy. She has had health care technician. She did have an intraarticular injection into her left hip by Dr Coe on 07/28/10, which she says gave her a couple of days of some relief. She is now taking hydromorphone daily. This was initially prescribed by Dr Coe and now I believeis being prescribed by her primary care physician, Dr Tamara Neal. MEDICAL HISTORY: She has diabetes mellitus. PAST SURGICAL HISTORY: She has undergone a tonsillectomy 2 sections and cholecystectomy. MEDICATIONS: She takes metformin, Actos, Flexeril and Dilaudid. ALLERGIES: No known drug allergies. No latex allergy. FAMILY HISTORY: Diabetes. 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 She does not smoke or drink alcohol. REVIEW OF SYSTEMS: Documented on the intake sheet and is present in the patient's clinical chart. OBJECTIVE: Alert and oriented. Five feet 1 inch tall, 205 pounds. Clinically, she did not have a leg length discrepancy. She had 2+ dorsalis pedis and posterior tibial pulses bilaterally. Sensation was intact to light touch in the L4 through S1 distributions bilaterally. On the left side, she did not have reproduction of pain with log roll test. Resisted straight leg raise caused left buttock pain. In the supine position, she had passive flexion to 105 degrees, external rotation 30 degrees. Internal rotation 30 degrees. On the right, passive flexion 115 degrees, external rotation 40 degrees. Internal rotation 25 degrees. Scour test reproduced groin pain. She did not have tenderness to palpation over the greater trochanteric region. I do not believe she has undergone any plain radiographs of her left hip. She has undergone lumbar spine radiographs as well as a lumbar spine MRI. MRI arthrogram of her left hip is suggestive of a labral tear. ASSESSMENT AND PLAN: This is a 35-year-old female with ongoing left hip pain. It is unclear to me why her pain was initially in her lumbar spine and then migrated to the hip region. Her current history and physical examination are somewhat suggestive of intraarticular pathology. She did seem to respond at least somewhat positively to the intraarticular injection and the MRI is suggestive of a labral tear. However, at this point I have no definitive or conclusive evidence that her hip joint is the source of her pain. I am concerned about the fact that she is taking so much narcotic pain medication. She is still unclear if there is a problem involving her lumbar spine. Apparently she is no longer being followed by Dr Coe. She has a relationship here with the [facility] and I recommended a repeat evaluation for consideration of lumbar spine pathology. If it is felt that she has no lumbar spine pathology, she will return for a reevaluation of her hip. Ultimately, I would consider a left hip arthroscopy if she completely fails nonoperative treatment and it is not felt that she has any other likely source of pathology. However, I think her prognosis is limited given the somewhatnonconcordant history and her reliance on narcotic pain medication. Electronically Signed by Alberto Moffett MD 11/09/2010 15:29 Alberto Moffett MD - Alberto Moffett MD - JAKE Job ID: SM Doc ID: [id number] Ext Doc ID: [id number] cc: Tamara Neal MD * Marlo Dalton MD - 11/06/2010 1400 EDT This office note has been dictated. MARLO DALTON MD documented in this encounter Plan of Treatment Not on file documented as of this encounter Visit Diagnoses Diagnosis Left hip pain Pain in joint, pelvic region and thigh Left buttock pain Mylagia and myositis, unspecified documented in this encounter Care Teams Migratory Worker Relationship Specialty Start Date End Date Tamara Neal MD [address] [place] [phone] PCP - General 09/13/08 03/18/13 documented as of this encounter
--- OUTSIDE RECORDS SUMMARY | 2024-02-14 15:28 | XMS_ITS | Encounter Summary ---
Author Organization [facility] Address [address] [place] [address] Care Team Providers Care Information Technology Auditor Name Role Phone Tamara Neal MD Primary Care Provider + Reason for Visit * Reason Onset Date Comments Medication Problem 10/26/2009 Question abou t a medication Encounter Details Date Type Department Care Team (Late st Contact Info) Description 10/26/2009 Refill [facility] Family Medicine [address] [address] Tamara Neal MD [address] [place] [phone] Medication Problem (Question about a medication) Social History Tobacco Use Types Packs/Day Years [...] Pain. 1-2 tab q 4-6 hr prn 40 Tab 0 10/26/2009 11/03/2009 documented in this encounter Miscellaneous Notes * Telephone Encounter - Shazia Tanner - 10/27/2009 0931 EDT I am uncomfortable giving her a prescription for 272 tabs of percocet. I don't know this patient. Also, we would expect pain from her injury to be getting better with time and physical therapy, so she should be requiring less medication, not more. * Telephone Encounter - Fanny Mcginnis LPN - 10/26/2009 1636 EDT Pt has been taking percocet, only getting 40 tabs at a time wondering if she can get enough to get pt to her appt. In Nov. With Dr. Neal, Takes 2 tabs 4 times a day. Will be out of her medication tomorrow, Please advise. * Telephone Encounter - Mikki Dorado - 10/26/2009 1225 EDT Patient would like a call back, she said she has a question about a medication. documented in this encounter Plan of Treatment Not on file documented as of this encounter Visit Diagnoses Diagnosis Low back pain Lumbago documented in this encounter Discontinued Medications Medication Sig Discontinue Reason Start Date End Da te oxycodone-acetaminophen (PERCOCET) 5-325 mg per tabletIndications:Low back pain Take 2 Tabs by mouth 4 times daily as needed for Pain. 1 tab q 4-6 hr prn Reorder 10/19/2009 10/26/2009 documented as of this encounter Care Teams Information Technology Auditor Relationship Specialty Start Date End Date Tamara Neal MD [address] [place] [phone] PCP - General 09/13/08 03/18/13 documented as of this encounter
--- OUTSIDE RECORDS SUMMARY | 2024-02-14 15:28 | XMS_ITS | Encounter Summary ---
Author Organization [facility] Address [address] [place] [address] Care Team Providers Care Investment Sales Assistant Name Role Phone Tamara Neal MD Primary Care Provider + Encounter Details Date Type Department Care Team (Late st Contact Info) Description 08/09/2010 Results Only Imaging [facility] [phone] [place] [address] [place] [address] Social History Tobacco Use Types [...] Comments FL GUIDE LOCATION, ASPIRATION, INJECTION, BIOPSY 09/11/2010 15:55 EDT documented in this encounter Results * FL GUIDE LOCATION, ASPIRATION, INJECTION, BIOPSY (09/11/2010 15:55 EDT) Anatomical Region Laterality Modality Other 09/11/2010 15:5 5 EDT 09/11/2010 16:22 EDT Narrative 09/11/2010 16:22 EDT FL GUIDE LOC,ASP,INJ,BX ??September 11, 2010 03:55:00 PM Signs and Symptoms: ??Hip and back pain. Findings: ??Written and verbal consents were obtained from the patient with risks and benefits explained with risks including bleeding and infection. ??The patient was cleaned and prepped in the usual sterile fashion. ??Using fluoroscopic guidance, 1% lidocaine was used for local anesthesia and a 21-gauge spinal needle was used for injection of contrast materials (Isovue-300 and Gadolinium) into the joint space. ??The patient tolerated the procedure well without immediate post procedural complication. Impression: ?? 1. Satisfactory fluoroscopically guided arthrogram of the left hip. 2. Left hip MR arthrogram to follow. The attending radiologist, Dr. Dawkins supervised the procedure. I have personally reviewed the images and the above interpretation and agree with the findings. Procedure Note Jesus Perez MD - 09/11/2010 FL GUIDE LOC,ASP,INJ,BX September 11, 2010 03:55:00 PM Signs and Symptoms: Hip and back pain. Findings: Written and verbal consents were obtained from the patient with risks and benefits explained with risks including bleeding and infection. The patient was cleaned and prepped in the usual sterile fashion. Using fluoroscopic guidance, 1% lidocaine was used for local anesthesia and a 21-gauge spinal needle was used for injection of contrast materials (Isovue-300 and Gadolinium) into the joint space. The patient tolerated the procedure well without immediate post procedural complication. Impression: 1. Satisfactory fluoroscopically guided arthrogram of the left hip. 2. Left hip MR arthrogram to follow. The attending radiologist, Dr. Dawkins supervised the procedure. I have personally reviewed the images and the above interpretation and agree with the findings. Roland Coe DO IMG FLUOROSCOPY MARK LOCKETT documented in this encounter Visit Diagnoses Not on filedocumented in this encounter Care Teams Investment Sales Assistant Relationship Specialty Start Date End Date Tamraa Neal MD [address] [place] [phone] PCP - General 09/13/08 03/18/13 documented as of this encounter
--- OUTSIDE RECORDS SUMMARY | 2024-02-14 15:28 | XMS_ITS | Encounter Summary ---
Author Organization [facility] Address [address] [place] [address] Care Team Providers Care Coding Analyst Name Role Phone Tamara Neal MD Primary Care Provider + Reason for Visit * Reason Onset Date Comments Medication Questions 10/17/2010 Encounter Details Date Type Department Care Team (Late st Contact Info) Description 10/17/2010 Telephone [facility] Family Medicine - [address] [phone] Tamara Neal MD [address] [place] [phone] Medication Questions Social History Tobacco Use Types [...] Telephone Encounter - Awilda Fang RN - 10/17/2010 4348 EDT ','<<< Less Detail From Tamara Neal MD Sent Sunday October 17, 2010 13:44 To [facility] Nurse Message Until dr. coe gets me the most recent clinic notes i cannot continue to Rx narcotics. I ask that he con't to prescribe until he completes and gets me copies of these notes Pt notified of Dr. Neal's response. She states she will call Dr. Coe's office to ask the status of her medical records. * Telephone Encounter - Latesha Naqvi LPN - 10/17/2010 1336 EDT I can see the last RX that Dr. Mcdonald wrote scanned in patients chart but no other notes noted. Have you received anything yet? Please advise * Telephone Encounter - Stacy Hawkins - 10/17/2010 1312 EDT Patient calling to see if Dr Neal received Dr Coe's notes and if she is going to give her a refill Of her pain medication. Please advise. documented in this encounter Plan of Treatment Not on file documented as of this encounter Visit Diagnoses Not on filedocumented in this encounter Care Teams Coding Analyst Relationship Specialty Start Date End Date Tamara Neal MD [address] [place] [phone] PCP - General 09/13/08 03/18/13 documented as of this encounter
--- OUTSIDE RECORDS SUMMARY | 2024-02-14 15:28 | XMS_ITS | Encounter Summary ---
Author Organization [facility] Address [address] [place] [address] Care Team Providers Care Gift Officer Name Role Phone Tamara Neal MD Primary Care Provider + Reason for Visit * Reason Comments Diabetes fs this am before br [id number];received lumbar inj. on , and has had trouble with fs's since Encounter Details Date Type Department Care Team (Late st Contact Info) Description 03/16/2010 8:30 EST Office Visit [facility] Family Medicine [address] [address] Tamara Neal MD [address] [place] [phone] Type 2 diabetes mellitus without (mention of) complications; Flu; Need for prophylactic vaccination and inoculation against influenza Social History Tobacco Use Types Packs/Day Years [...] Sign Reading Time Taken Comments Blood Pressure 122/72 03/16/2010 0820 EST Pulse 64 03/16/2010 0820 EST Temperature 36.1 ??C (96.9 ??F) 03/16/2010 0820 EST Respiratory Rate - - Oxygen Saturation - - Inhaled Oxygen Concentration - - Weight 93 kg (205 lb) 03/16/2010 0820 EST Height - - Body Mass Index 40.04 11/29/2009 1625 EDT documented in this encounter Ordered Prescriptions Prescription Sig Dispensed Refills Start Date End Da te glipiZIDE (GLUCOTROL XL) 2.5 mg CR tablet Take 1 Tab by mouth daily. 14 Each 0 03/16/2010 07/13/2010 trazodone (DESYREL) 50 mg tablet Take 0.5-1 Tabs by mouth at bedtime. Take half to one tablet at bedtime 30 Tab 5 03/16/2010 08/01/2010 documented in this encounter Progress Notes * Tamara Neal MD - 03/16/2010 1652 EST S: here to f/u on diabetes. For LBP is now seeing Dr. Mcdonald in Anesthesia Pain. Switched from Percocet to Dilaudid. Had Steroid injection on the , no improvement. Fasting sugars have been > 300 for over one week now. No fevers, cough, ST, skin redness or rash, urinary symptoms. Had URI about 2 weeks ago (before sugars started going up) but those symptoms have resolved. No other GI symptoms or other evidence infection. Does have posterior headache that is mod severe. No recent oral steroids. HGA1C 02/15 down to 7.3 (from 9.2) O: BP 122/72 Pulse 64 Temp(Src) 36.1 ??C (96.9 ??F) (Tympanic) Wt 92.987 kg (205 lb) Gen - well INAD HEENT - conjunctivae non-injected, TMs edward, OP - MMM no erythema. No sinus TTP Neck - Supple, no inc LN Lungs - CTAB Abd - soft, NT, ND Ext - no edema Urine 3+ glucose, trace ketones and protein A/P Diabetes with elevated sugars - likely from backpain and inflammatory changes as well as local steroids No evidence infection at this point Trial low dose Glucotrol XL 2.5 mg once daily for short term (7-14 days) as sugars are high. REviwed symptoms of hypogycemia f/u 3-4 wks or sooner prn Flu vaccine today * Verona Plasencia - 03/16/2010 0854 EST Venipuncture performed per order from Dr. Neal. Recent Labs Basename 03/16/10 0850 ??? COLOR YELLOW ??? CLARITYU Clear ??? GLUCOSEUAPOC 3+* ??? BILIRUBIN Neg ??? KETONES Trace* ??? SPECGRAV 1.025 ??? BLOOD 1+* ??? PHUA 6.0 ??? PROTEINUAPOC 1+* ??? UROBILINOGEN 0.2 ??? NITRITE Neg ??? LEUKESTER Neg See immunization section for patient education regarding the Influenza vaccine. documented in this encounter Plan of Treatment Scheduled Orders Name Type Priority Associated Diagnoses Orde r Schedule POCT URINE DIPSTICK Point of Care Testing Routine Type 2 diabetes mellitus without (mention of) complications Ordered: 03/16/2010 documented as of this encounter Procedures Procedure Name Priority Date/Time Associated Diagnosis Comments COMPLETE BLOOD COUNT AND DIFFERENTIAL Routine 03/16/2010 8:34 EST Type 2 diabetes mellitus without (mention of) complications documented in this encounter Results * (ABNORMAL) HEMAGRAM AND DIFFERENTIAL (03/16/2010 8:34 EST) WBC 16.79(H) 4.0 - 12.4 K/cmm [facility] RBC 4.48 3.86 - 5.04 M/cmm [facility] Hemoglobin 14.8 11.6 - 15.2 gm/dl [facility] HCT 41.9 34.9 - 44.4 % [facility] MCV 94 81 - 98 fl [facility] MCH 33.1 26.7 - 33.3 pg [facility] MCHC 35.3 32.1 - 35.9 gm/dl [facility] PLT 185 141 - 320 K/cmm [facility] RDW-CV 12.2 11.7 - 14.6 % [facility] Neutrophils 61.0 45.5 - 79.7 % [facility] % Bands 1.0 % [facility] Lymphocytes 28.0 15.0 - 46.8 % [facility] Monocytes 10.0 1.8 - 12.0 % [facility] ABS Neutrophils 10.24(H) 2.20 - 8.85 K/cmm [facility] ABS Bands 0.17 K/cmm [facility] ABS Lymphs 4.70(H) 1.09 - 3.30 K/cmm [facility] ABS Monocytes 1.68(H) 0.1 - 0.8 K/cmm [facility] RBC Morphology Normal [facility] Type of Diff: Manual [facility] Blood specimen (specimen) 03/16/2010 8:34 EST 03/16/2010 11:57 EST Tamara Neal MD PACKAGES & DNA P ROBE ORDERABLES [facility] [address] [place] [address] documented in this encounter Visit Diagnoses Diagnosis Type 2 diabetes mellitus without (mention of) complications Type II or unspecified type diabetes mellitus without mention of complication, not stated as uncontrolled Flu Influenza with other respiratory manifestations Need for prophylactic vaccination and inoculation against influenza documented in this encounter Discontinued Medications Medication Sig Discontinue Reason Start Date End Da te trazodone (DESYREL) 50 mg tablet Take 0.5-1 Tabs by mouth at bedtime. Take half to one tablet at bedtime Reorder 02/15/2010 03/16/2010 documented as of this encounter Historical Medications * This list may reflect changes made after this encounter. Medication Sig Dispensed Refills Start Date End Date HYDROmorphone (DILAUDID) 8 mg tablet Take 8 mg by mouth every 4 hours as needed. 1-2 tabs. q4-6hprn 03/16/2010 10/12/2010 added in this encounter Orders Immunization/Injection Count Last Ordered Date First Ordered Date FLU VACCINE =>3YO SPLIT PRES ERVATIVE FREE IM 1 03/16/2010 Equipment Count Last Ordered Date First Orde red Date GENERIC DME ORDER 1 03/16/2010 documented in this encounter Care Teams Gift Officer Relationship Specialty Start Date End Date Tamara Neal MD [address] [place] [phone] PCP - General 09/13/08 03/18/13 documented as of this encounter
--- OUTSIDE RECORDS SUMMARY | 2024-02-14 15:28 | XMS_ITS | Encounter Summary ---
Author Organization [facility] Address [address] [place] [address] Care Team Providers Care Glove Printer Name Role Phone Tamara Neal MD Primary Care Provider + Reason for Visit * Reason Comments Procedure follow up from GB re moved at [facility] on 11/25, feeling a little better Enlarged Liver had biopsy and still is waiting for results Encounter Details Date Type Department Care Team (Late st Contact Info) Description 11/29/2009 16:30 EDT Office Visit [facility] Family Medicine [address] [address] Tamara Neal MD [address] [place] [phone] LBP (low back pain); Type 2 diabetes mellitus without (mention of) [...] Sign Reading Time Taken Comments Blood Pressure 122/76 11/29/2009 1625 EDT Pulse 76 11/29/2009 1625 EDT Temperature 36.9 ??C (98.5 ??F) 11/29/2009 1625 EDT Respiratory Rate - - Oxygen Saturation - - Inhaled Oxygen Concentration - - Weight 92.1 kg (203 lb) 11/29/2009 1625 EDT Height 152.4 cm (5') 11/29/2009 1625 EDT Body Mass Index 39.65 11/29/2009 1625 EDT documented in this encounter Ordered Prescriptions Prescription Sig Dispensed Refills Start Date End Da te oxycodone-acetaminophen (PERCOCET) 5-325 mg per tablet Take 1-2 Tabs by mouth 4 times daily as needed for Pain. Not to exceed 6 per day 84 Tab 0 12/13/2009 12/27/2009 oxycodone-acetaminophen (PERCOCET) 5-325 mg per tablet Take 1-2 Tabs by mouth 4 times daily as needed for Pain. Not to exceed 6 per day 84 Tab 0 11/29/2009 11/29/2009 documented in this encounter Progress Notes * Tamara Neal MD - 11/30/2009 0829 EDT S: here to f/u on LBP as well as recent cholecystectomy and liver biopsy. Surgery went well, pathology still pending. No fevers and appetite ok, some diarrhea. 2 days prior to surgery saw ortho spine and APS, s/p epidural injection. Still uncomfortable. Stillusing Percocet O: BP 122/76 Pulse 76 Temp(Src) 36.9 ??C (98.5 ??F) (Oral) Ht 1.524 m (5') Wt 92.08 kg (203 lb) LMP 08/14/2009 Gen - well INAD Abd - pos BS, lap inc C/D/I, soft ND, no significant tenderness A/P S/p lap cholecystectomy 5 days ago, healing well Await pathology of liver biopsy LBP - hopefully epidural steroid injection will give more relief over next few days, ok to con't with Percocet for now but plan to wean down. This should also help with post-operative pain and shouldstop Vicodin DM - con't current meds, last HgA1C quite elevated but having active inflammatory issues (LBP, biliary colic, etc) F/u 1 mos or sooner prn documented in this encounter Plan of Treatment Not on file documented as of this encounter Visit Diagnoses Diagnosis LBP (low back pain) Lumbago Type 2 diabetes mellitus without (mention of) complications Type II or unspecified type diabetes mellitus without mention of complication, not stated as uncontrolled documented in this encounter Discontinued Medications Medication Sig Discontinue Reason Start Date End Da te hydrocodone-acetaminophe n (LORTAB;VICODIN) 5-500 mg per tablet Take 1-2 Tabs by mouth every 6 hours as needed for Pain. Alternate therapy 11/25/2009 11/29/2009 oxycodone-acetaminophen (PERCOCET) 5-325 mg per tablet Take 1-2 Tabs by mouth 4 times daily as needed for Pain. Not to exceed 6 per day Reorder 11/18/2009 11/29/2009 oxycodone-acetaminophen (PERCOCET) 5-325 mg per tablet Take 1-2 Tabs by mouth 4 times daily as needed for Pain. Not to exceed 6 per day Reorder 11/29/2009 11/29/2009 documented as of this encounter Care Teams Glove Printer Relationship Specialty Start Date End Date Tamara Neal MD [address] [place] [phone] PCP - General 09/13/08 03/18/13 documented as of this encounter
--- OUTSIDE RECORDS SUMMARY | 2024-02-14 15:28 | XMS_ITS | Encounter Summary ---
Author Organization [facility] Address [address] [place] [address] Care Team Providers Care Spa Coordinator Name Role Phone Tamara Neal MD Primary Care Provider + Reason for Visit * Reason Onset Date Comments Appointment Related 11/22/2009 Encounter Details Date Type Department Care Team (Late st Contact Info) Description 11/22/2009 Telephone [facility] Rehabilitation Therapy - [facility] [address] [place] [address] Rox Velasquez, PT [address] [facility] [address] [place] [phone] Appointment Related Social History Tobacco Use [...] encounter Miscellaneous Notes * Telephone Encounter - Rox Velasquez, PT - 11/22/2009 0847 EDT The patient called to cancel today's appointment due to lack of transportation. documented in this encounter Plan of Treatment Not on file documented as of this encounter Visit Diagnoses Not on filedocumented in this encounter Care Teams Spa Coordinator Relationship Specialty Start Date End Date Tamara Neal MD [address] [place] [phone] PCP - General 09/13/08 03/18/13 documented as of this encounter
--- OUTSIDE RECORDS SUMMARY | 2024-02-14 15:28 | XMS_ITS | Encounter Summary ---
Author Organization [facility] Address [address] [place] [address] Care Team Providers Care Placement Director Name Role Phone Tamara Neal MD Primary Care Provider + Reason for Visit * Reason Onset Date Comments Medications Refill 11/03/2009 Encounter Details Date Type Department Care Team (Late st Contact Info) Description 11/03/2009 Refill [facility] Family Medicine [address] [address] Tamara Neal MD [address] [place] [phone] Medications Refill Social History Tobacco Use Types [...] q 4-6 hr prn 40 Tab 0 11/03/2009 11/07/2009 documented in this encounter Miscellaneous Notes * Telephone Encounter - Mandy Alvarez - 11/03/2009 1502 EDT Pt last refill was for #[address] Neal will be in the office on SaturdayNovember 07. Pt is aware that she will only be getting enough to get her through the weekend and will need to await Dr Neal's return for a longer lasting refill. * Telephone Encounter - Ceci Frances - 11/03/2009 0852 EDT Last ov=6.8.10 Next ov=8.3.10 Last filled=6.30.10 documented in this encounter Plan of Treatment [...] 1-2 tab q 4-6 hr prn Reorder 10/26/2009 11/03/2009 documented as of this encounter Care Teams Placement Director Relationship Specialty Start Date End Date Tamara Neal MD [address] [place] [phone] PCP - General 09/13/08 03/18/13 documented as of this encounter
--- OUTSIDE RECORDS SUMMARY | 2024-02-14 15:28 | XMS_ITS | Encounter Summary ---
Author Organization [facility] Address [address] [place] [address] Care Team Providers Care Multiple Needle Stitcher Name Role Phone Tamara Neal MD Primary Care Provider + Reason for Visit * Reason Onset Date Comments Medications Refill 10/19/2009 Encounter Details Date Type Department Care Team (Late st Contact Info) Description 10/19/2009 Refill [facility] Family Medicine [address] [address] Tamara Neal MD [address] [place] [phone] Medications Refill Social History Tobacco Use Types [...] q 4-6 hr prn 40 Tab 0 10/19/2009 10/26/2009 documented in this encounter Miscellaneous Notes * Telephone Encounter - Latesha Naqvi LPN - 10/19/2009 1256 EDT Please review notes and decide. * Telephone Encounter - Kay Alcocer - 10/19/2009 1250 EDT Lv: 10/04/09 Nv: 11/29/09 Patient states she will be out tomorrow (10/20) documented in this encounter Plan of Treatment [...] 1 tab q 4-6 hr prn Reorder 10/04/2009 10/19/2009 documented as of this encounter Care Teams Multiple Needle Stitcher Relationship Specialty Start Date End Date Tamara Neal MD [address] [place] [phone] PCP - General 09/13/08 03/18/13 documented as of this encounter
--- OUTSIDE RECORDS SUMMARY | 2024-02-14 15:28 | XMS_ITS | Encounter Summary ---
Author Organization [facility] Address [address] [place] [address] Care Team Providers Care Track Inspecting Supervisor Name Role Phone Tamara Neal MD Primary Care Provider + Reason for Visit * Reason Onset Date Comments Diabetes 09/19/2010 Encounter Details Date Type Department Care Team (Late st Contact Info) Description 09/19/[address] [facility] Family Medicine - [address] [phone] Tamara Neal MD [address] [place] [phone] Diabetes Social History Tobacco Use Types Packs/Day Years [...] encounter Miscellaneous Notes * Telephone Encounter - Carolann Lawrecne - 09/19/2010 1107 EDT Left message for pt to reschedule annual with Dr. Mleéndez or Dr. Neal. documented in this encounter Plan of Treatment Not on file documented as of this encounter Visit Diagnoses Not on filedocumented in this encounter Care Teams Track Inspecting Supervisor Relationship Specialty Start Date End Date Tamara Neal MD [address] [place] [phone] PCP - General 09/13/08 03/18/13 documented as of this encounter
--- OUTSIDE RECORDS SUMMARY | 2024-02-14 15:28 | XMS_ITS | Encounter Summary ---
Author Organization [facility] Address [address] [place] [address] Care Team Providers Care Fruit Pitter Name Role Phone Tamara Neal MD Primary Care Provider + Encounter Details Date Type Department Care Team (Late st Contact Info) Description 11/01/2009 Abstract [facility] Endocrinology - [address] [address] Tamara Neal MD [address] [place] [phone] Social History Tobacco Use Types Packs/Day Years [...] on filedocumented in this encounter Care Teams Fruit Pitter Relationship Specialty Start Date End Date Tamara Neal MD [address] [place] [phone] PCP - General 09/13/08 03/18/13 documented as of this encounter
--- OUTSIDE RECORDS SUMMARY | 2024-02-14 15:28 | XMS_ITS | Encounter Summary ---
Author Organization [facility] Address [address] [place] [address] Care Team Providers Care High School Coordinator Name Role Phone Tamara Neal MD Primary Care Provider + Encounter Details Date Type Department Care Team (Late st Contact Info) Description 03/16/2010 Results Only [facility] [phone] Point, Of Care User [address] [place] [address] Social History Tobacco Use Types Packs/Day Years [...] Date/Time Associated Diagnosis Comments POCT URINALYSIS Routine 03/16/2010 8:50 EST documented in this encounter Results * (ABNORMAL) POCT URINALYSIS (03/16/2010 8:50 EST) Color YELLOW [facility] Clarity, UA Clear [facility] Glucose 3+(A) NEG [facility] Bilirubin Neg NEG [facility] Ketones Trace(A) NEG [facility] Specific [facility] 1.025 1.001 - 1.035 [facility] Blood 1+(A) NEG [facility] pH 6.0 4.6 - 8.0 [facility] Protein 1+(A) NEG [facility] Urobilinogen 0.2 0.2 - 1.0 E.U./dl [facility] Nitrite Neg NEG [facility] Leuk Esterase Neg NEG [place] [facility] band booker [place] [id number] Test performed at [facility] 03/16/2010 8:50 EST 03/16/2010 8:53 EST Of Care User Point POINT OF CARE TEST O RDERABLES [facility] [address] [place] [address] documented in this encounter Visit Diagnoses Not on filedocumented in this encounter Care Teams High School Coordinator Relationship Specialty Start Date End Date Tamara Neal MD [address] [place] [phone] PCP - General 09/13/08 03/18/13 documented as of this encounter
--- OUTSIDE RECORDS SUMMARY | 2024-02-14 15:28 | XMS_ITS | Encounter Summary ---
Author Organization [facility] Address [address] [place] [address] Care Team Providers Care Amplifier Mechanic Name Role Phone Tamara Neal MD Primary Care Provider + Reason for Visit * Reason Comments Hip Pain left hip pain Encounter Details Date Type Department Care Team (Late st Contact Info) Description 10/06/2010 15:00 EDT Office Visit [facility] Sports Medicine Program - [address] [address] Sheldon Veloz Left hip pain (Primary Dx) Social History [...] as of this encounter Progress Notes * Sheldon Veloz PA-C - 10/06/2010 1535 EDT This office note has been dictated. documented in this encounter Consult Notes * Sheldon Veloz PA-C - 10/11/2010 1058 EDT Sports Medicine Service [facility] [address] [place] [phone] CONSULTATION - 10/06/2010 PROBLEMS: Left hip pain. SUBJECTIVE: The patient sent here by Dr Neal for our consultation. 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 She has since been under the care of a spine physician for L4-L5 disk herniation and has un dergone multiple cortisone injections with little or minimal help to her pain. She is now noting that her pain is mostly into the hip, that is more posterior along the SI joint as well as anterior into the inguinal region. She notes with any hip rotation, such as getting out of a car, sitting in a chair for a long period of time or simply getting up off the toilet, she will have increasing pain and discomfort. She has had an MRA of this hip and is here for our exam and opinion. See intake sheetfor remaining review of systems and past medical history. OBJECTIVE: The patient is alert and oriented x3, no obvious distress. Eyes equal and reactive to light. No breathing difficulties. On exam, she ambulates with a normal gait. She flexes forward fingertips to above ankles. She extends only about 10 degrees, bends bilaterally 20 degrees. Lying supine on the exam table, she has a straight leg raise to about 80 degrees without much difficulty, but with internal and external rotation she has increasing pain. With internal rotation, the pain is more into the inguinal area; with external rotation, more into the posterior region of the hip. She has nopain over the greater trochanter. She is able to do straight leg raises. Pulses and sensation are all intact distally. DIAGNOSTIC DATA: Review of the MRI does show evidence consistent with a labral tear but potentiallysome impingement type issues with this. ASSESSMENT: Left hip pain. PLAN: Due to the fact this is now over a year in duration, she is continuing to have problems, is not responding to nonsurgical modalities, I would like to have her followed up with Dr Moffett for hisexam and opinion to determine if she would be a surgical candidate for this chronic condition. Electronically Signed by Sheldon Veloz PA-C 10/11/2010 10:58 Dictated by: Sheldon Veloz PA-C - Sheldon Veloz PA-C A - HMM Job ID: SM Doc ID: [id number] Ext Doc ID: [id number] cc: documented in this encounter Plan of Treatment Not on file documented as of this encounter Visit Diagnoses Diagnosis Left hip pain- Primary Pain in joint, pelvic region and thigh documented in this encounter Discontinued Medications Medication Sig Discontinue Reason Start Date End Da te duloxetine (CYMBALTA) 20 mg capsuleIndications:Chroni c pain syndrome Take 1 Cap by mouth daily. 08/01/2010 10/06/2010 documented as of this encounter Care Teams Amplifier Mechanic Relationship Specialty Start Date End Date Tamara Neal MD [address] [place] [phone] PCP - General 09/13/08 03/18/13 documented as of this encounter
--- OUTSIDE RECORDS SUMMARY | 2024-02-14 15:28 | XMS_ITS | Encounter Summary ---
Author Organization [facility] Address [address] [place] [address] Care Team Providers Care Dental Claims Processor Name Role Phone Tamara Neal MD Primary Care Provider + Reason for Visit * Reason Onset Date Comments Other 11/01/2009 transfer care Encounter Details Date Type Department Care Team (Late st Contact Info) Description 11/01/2009 Telephone [facility] Rehabilitation Therapy - Medical Office Building [address] [place] [phone] Dilan Vaughn, PT [address] [place] [address] Other (transfer care) Social History Tobacco Use Types Packs/Day Years [...] * Telephone Encounter - Suly Wilkins - 11/01/2009 1603 EDT This patient called to cancel her Physical Therapy appointments. She works nights and needs appointments on Saturday mornings only. We can't get her in till 12/06 for Saturday am apts. She has asked to transfer her care to another site, I found out that [facility] openings at the time she needs. I have scheduled her over there and I have let thatsite know as well. documented in this encounter Plan of Treatment Not on file documented as of this encounter Visit Diagnoses Not on filedocumented in this encounter Care Teams Dental Claims Processor Relationship Specialty Start Date End Date Tamara Neal MD [address] [place] [phone] PCP - General 09/13/08 03/18/13 documented as of this encounter
--- OUTSIDE RECORDS SUMMARY | 2024-02-14 15:28 | XMS_ITS | Encounter Summary ---
Author Organization [facility] Address [address] [place] [id number] Care Team Providers Care Operations Management Trainee Name Role Phone Tamara Neal MD Primary Care Provider + Reason for Visit * Reason Onset Date Comments Medications Refill 12/27/2009 Encounter Details Date Type Department Care Team (Late st Contact Info) Description 12/27/2009 Refill [facility] Family Medicine [address] [address] Tamara Neal MD [address] [place] [phone] Medications Refill Social History Tobacco Use Types [...] Pain. Not to exceed 5 per day. 40 Tab 0 12/27/2009 01/04/2010 documented in this encounter Miscellaneous Notes * Telephone Encounter - Awilda Fang RN - 12/27/2009 0946 EDT Per office visit note from 11/29/[address] Ángel, ok to continue percocet for now but will wean down. Pt has been getting script every [address] Neal. She wants to know how Guzman's pain level is doing. Pt to be notified that the plan is to slowly wean her off the percocet. Script for today will be for pt not to exceed 5 tablets a day. She will give pt enough medication to get her through until her follow up appointment on 01/04/[address] Neal. Pt notified of Dr. Neal's instructions. States her back pain is a 6-7. Will keep follow up appointment. Patient Education Topic: plan of care per Dr. Neal Method: Verbal Taught to: Patient Barriers: None Outcomes: independent and verbalized understanding Signature:Ethel Fang RN * Telephone Encounter - Shanita Hudson - 12/27/2009 0844 EDT LF: 12/03/2009 NV: 01/04/2010 LV: 11/29/2009 Patient is out today. documented in this encounter Plan of Treatment Not on file documented as of this encounter Visit Diagnoses Not on filedocumented in this encounter Discontinued Medications Medication Sig Discontinue Reason Start Date End Da te oxycodone-acetaminophen (PERCOCET) 5-325 mg per tablet Take 1-2 Tabs by mouth 4 times daily as needed for Pain. Not to exceed 6 per day Reorder 12/13/2009 12/27/2009 documented as of this encounter Care Teams Operations Management Trainee Relationship Specialty Start Date End Date Tamara Neal MD [address] [place] [phone] PCP - General 09/13/08 03/18/13 documented as of this encounter
--- OUTSIDE RECORDS SUMMARY | 2024-02-14 15:29 | XMS_ITS | Encounter Summary ---
Author Organization [facility] Address [address] [place] [address] Care Team Providers Care Track Equipment Operator Name Role Phone Unavailable Primary Care Provider Unavailabl e Encounter Details Date Type Department Care Team (Late st Contact Info) Description 09/08/2007 14:41 EDT Hospital Encounter [facility] [place], [place] [address] [place] [address] Cameron Hemphill MD [address] [place] [address] Khalida Quiñones MD Discharge Disposition: Auto Discharge Social History Tobacco Use Types Packs/Day Years Used Date Smoking Tobacco: Never Assessed Sex and Gender Information Value Date Recorded Sex Assigned at Not on file Gender Identity Not on file Sexual Orientation Not on file documented as of this encounter Discharge Disposition Disposition Code Departure Means Destination Auto Discharge documented in this encounter Plan of Treatment Not on file documented as of this encounter Procedures Procedure Name Priority Date/Time Associated Diagnosis Comments [facility] BI[facility]YSICAL PROFILE 09/08/2007 16:37 EDT documented in this encounter Results * [facility] BIOP[facility]ICAL PROFILE (09/08/2007 16:37 EDT) Anatomical Region Laterality Modality Other 09/08/2007 16:3 7 EDT Narrative 10/10/2008 12:38 EDT BPP,GROWTH/DIABETES Please refer to the separate [facility] report. ??Contact Maternal Medicine. Procedure Note Haim Méndez MD - 10/10/2008 BPP,GROWTH/DIABETES Please refer to the separate [facility] report. Contact Maternal Medicine. Cameron Hemphill MD [facility] S documented in this encounter Visit Diagnoses Not on filedocumented in this encounter
--- OUTSIDE RECORDS SUMMARY | 2024-02-14 15:29 | XMS_ITS | Encounter Summary ---
Author Organization [facility] Address [address] [place] [address] Care Team Providers Care Scruff Worker Name Role Phone Unavailable Primary Care Provider Unavailabl e Encounter Details Date Type Department Care Team (Latest Contact Info) Description 09/12/2007 7:40 EDT - 09/14/2007 11:59 EDT Hospital Encounter [facility] [address] [place] [address] Elke Araujo MD [address] [phone] Discharge Disposition: Home or Self Care Social History Tobacco Use Types Packs/Day Years Used Date Smoking Tobacco: Never Assessed Sex and Gender Information Value Date Recorded Sex Assigned at Not on file Gender Identity Not on file Sexual Orientation Not on file documented as of this encounter Discharge Disposition Disposition Code Departure Means Destination Home or Self Care documented in this encounter OR Notes * OR Surgeon - Elke Rain MD - 09/12/2007 0000 EDT PROCEDURE REPORT PT TYPE: IP SERVICE DATE: SURGEON: Julieta Araujo MD HITCHER: Elke Rain MD PREOPERATIVE DIAGNOSIS 1. Desires repeat low transverse section. 2. Class B diabetes mellitus. POSTOPERATIVE DIAGNOSIS 1. Desires repeat low transverse section. 2. Class B diabetes mellitus. PROCEDURE Repeat low transverse section. ANESTHESIA Spinal. INDICATIONS This is a 30gravida 3 para 1-0-1-1 at 39+0 weeks gestation by LMP confirmed by first trimester ultrasound who desires repeat low transverse section. Of note, the patient is a class B gestational diabetic with type 2 diabetes diagnosed prior to . The patient had been controlled on oral diabetic medications prior to , at which time she wasplaced on insulin for blood sugarcontrol. She was well controlled on twice-daily NPH and at the end of her was on a maximum dose of 32 units every morning and every night before bed. The fetus was noted to be in approximately the 30th percentile at the time of delivery. The risks, benefits and alternatives were presentedto the patient and written informed consent was obtained prior to going back for the procedure. FINDINGS 1. A vigorous female infant was delivered at 12:47. Apgars were 8 and 9 at one and five minutes respectively. Weight was 7 pounds and 5 ounces. 2. Normal uterus and ovaries palpated bilaterally were normal. 3. Three-vessel cord and normal placenta. 4. Significant scarring of the uterine serosa to the overlying peritoneum, which was also scarred to the overlying rectus muscle. There were also significant adhesions between the uterine and bladderperitoneum. NARRATIVE The patient was taken back to the operating room with an IV in place. Spinal anesthesia was administered. She was placed in the dorsal supine position with a leftward tilt. She was prepped and drapedin the normal sterile fashion. A transverse Pfannenstiel skin incision was created witha knife. This was carried down to the level of the fascia with the Bovie. The fascia was incised in the midline with the knife and the fascial incision was extended laterally using the Felipe scissors. The inferioraspect of the fascial incision was grasped with Vlad clamps and the underlying rectus muscles were dissected off bluntly and sharply. Attention was then turned to the superior aspect of the fascial incision. The underlying rectus muscles were dissected off bluntly and sharply. There was some adhesive tissue at this site. The rectus was split in the midline. The peritoneum was entered sharply using Metzenbaum scissors and the peritoneal opening was extended inferiorly with good visualization of the bladder at all times. The pyramidalis was takendown sharply. There was omentum adhesed to peritoneum, which was adherent to the uterus. This was taken down with the Bovie. The bladder flap was created sharply as there was adhesive tissue between the bladder peritoneum and the uterus. After thebladderwas appropriately inferior to the site where the incision was to be made, a transverse uterine incision was created with a scalpel. This was extended superiorly and laterally bluntly and the bulging bag of membrane was still intact at this point and punctured with an Allis clamp. The fetus was delivered in ROP presentation. The nose and mouth were suctioned with the DeLee suction trap. Theinfantcord was doubly clamped and cut and the handed off to the awaiting pediatricians. The placenta was delivered manually. The uterus was cleared of all clots and debris using multiple lap pads. The uterus was not exteriorized due to adhesions between the anterior abdominal wall and the uterus itself. The ovaries and tubes were therefore palpated instead of visualized. Multiple laps wereused to clear the uterus of all clots and debris prior to marking the edges of the incision with a T-clamp. The uterine incision was then repaired using 1 chromic in a running and locked fashion. There was excellent hemostasis noted. A second layer was not placed given the excellent hemostasis as well as the bladder peritoneum at this point being scarred down too near to the incision to imbricate. A round of warm saline irrigation was used to clear the pericolic gutters of all clots and debris.The left pericolic gutter could not be entered due to adhesions between the uterus and the anteriorabdominal wall. The fascia was then repaired using 0 Vicryl in a running fashion. Warm saline irrigation was used again in the subcutaneoustissue. After the subcutaneous tissue was noted to be hemostatic, the skin was closed using ke. The wound was dressed appropriately. Sponge, lap and needlecounts were correct times two. Two grams of cephazolin were given at the start of the case. Dr. Elke Araujo was present and scrubbed for the entire procedure. There were no complications. ESTIMATED BLOOD LOSS 900 mL. FLUIDS 1300 mL of lactated Ringers. URINE OUTPUT 100 mL. COMPLICATIONS None. I was present during the entire procedure. Signed by Elke Araujo MD 09/25/2007 13:08 Elke Rain MD Elke Araujo MD D: - Elke Rain MD A - MT Job ID: [id number] Document ID: [id number] cc: MD Elke Hamilton MD documented in this encounter Plan of Treatment Not on file documented as of this encounter Procedures Procedure Name Priority Date/Time Associated Diagnosis Comments GLUCOSE, GLUCOMETER Routine 09/14/2007 5 :54 EDT GLUCOSE, GLUCOMETER Routine 09/13/2007 2 1:44 EDT GLUCOSE, GLUCOMETER Routine 09/13/2007 1 4:36 EDT GLUCOSE, GLUCOMETER Routine 09/13/2007 1 0:43 EDT COMPLETE BLOOD COUNT Routine 09/13/2007 8:40 EDT GLUCOSE, GLUCOMETER Routine 09/13/2007 6 :04 EDT GLUCOSE, GLUCOMETER Routine 09/12/2007 2 1:33 EDT COMPLETE BLOOD COUNT Routine 09/12/2007 19:00 EDT GLUCOSE, GLUCOMETER Routine 09/12/2007 1 8:48 EDT GLUCOSE, GLUCOMETER Routine 09/12/2007 1 3:35 EDT GLUCOSE, GLUCOMETER Routine 09/12/2007 1 1:48 EDT GLUCOSE, GLUCOMETER Routine 09/12/2007 9 :31 EDT COMPLETE BLOOD COUNT Routine 09/12/2007 8:15 EDT documented in this encounter Results * GLUCOSE, GLUCOMETER (09/14/2007 5:54 EDT) [facility] Signature Glucose, Fingerstick 82 70 - 100 mg/dl [facility] [employer] Marketing Associate ID [id number] Test Performed by Nursing Services [facility] 09/14/2007 5:54 EDT 09/14/2007 12:56 EDT Elke Araujo MD CHEMISTRY & BLOOD GA S ORDERABLES Performing Organization Address [facility] de Phone Number [facility] [address] [place] [address] * GLUCOSE, GLUCOMETER (09/13/2007 21:44 EDT) Glucose, Fingerstick 93 70 - 100 mg/dl [facility] Sales And Marketing Associate ID [id number] Test Performed by Nursing Services [facility] 09/13/2007 21:4 4 EDT 09/14/2007 12:56 EDT Elke Araujo MD CHEMISTRY & BLOOD GA S ORDERABLES Performing Organization Address [facility] Phone Number [facility] [address] [place] [address] * (ABNORMAL) GLUCOSE, GLUCOMETER (09/13/2007 14:36 EDT) Glucose, Fingerstick 170(H) 70 - 100 mg/dl [facility] Sales [employer] Marketing Associate ID [id number] Test Performed by Nursing Services [facility] 09/13/2007 14:3 6 EDT 09/14/2007 12:56 EDT Elke Araujo MD CHEMISTRY & BLOOD GA S ORDERABLES Performing Organization Address [facility] Phone Number [facility] [address] [place] [address] * (ABNORMAL) GLUCOSE, GLUCOMETER (09/13/2007 10:43 EDT) Glucose, Fingerstick 170(H) 70 - 100 mg/dl [facility] Sales [employer] Marketing Associate ID [id number] Test Performed by Nursing Services [facility] 09/13/2007 10:4 3 EDT 09/14/2007 12:56 EDT Elke Araujo MD CHEMISTRY & BLOOD GA S ORDERABLES Performing Organization Address [facility] Co de Phone Number [facility] [address] [place] [address] * (ABNORMAL) HEMAGRAM (09/13/2007 8:40 EDT) WBC 12.25 4.0 - 12.4 K/cmm [facility] RBC 3.05(L) 3.86 - 5.04 M/cmm [facility] Hemoglobin 9.8(L) 11.6 - 15.2 gm/dl [facility] HCT 27.8(L) 34.9 - 44.4 % [facility] MCV 91 81 - 98 fl [facility] MCH 32.3 26.7 - 33.3 pg [facility] MCHC 35.4 32.1 - 35.9 gm/dl [facility] PLT 216 141 - 320 K/cmm [facility] RDW-CV 14.0 11.7 - 14.6 % [facility] 09/13/2007 8:40 EDT 09/13/2007 9:05 EDT Elke Araujo MD HEMATOLOGY & PF4 ORD ERABLES Performing Organization Address [facility] Co de Phone Number [facility] [address] [place] [address] * (ABNORMAL) GLUCOSE, GLUCOMETER (09/13/2007 6:04 EDT) Glucose, Fingerstick 150(H) 70 - 100 mg/dl [facility] [employer] Associate ID [id number] Test Performed by Nursing Services [facility] 09/13/2007 6:04 EDT 09/13/2007 10:51 EDT Elke Araujo MD CHEMISTRY & BLOOD GA S ORDERABLES Performing Organization Address [facility] Co de Phone Number [facility] [address] [place] [address] * (ABNORMAL) GLUCOSE, GLUCOMETER (09/12/2007 21:33 EDT) Glucose, Fingerstick 119(H) 70 - 100 mg/dl [facility] Sales [employer] Marketing Associate ID [id number] Test Performed by Nursing Services [facility] 09/12/2007 21:3 3 EDT 09/13/2007 10:51 EDT Elke Araujo MD CHEMISTRY & BLOOD GA S ORDERABLES Performing Organization Address [facility] Co de Phone Number [facility] [address] [place] [address] * (ABNORMAL) HEMAGRAM (09/12/2007 19:00 EDT) WBC 13.93(H) 4.0 - 12.4 K/cmm [facility] RBC 3.11(L) 3.86 - 5.04 M/cmm [facility] Hemoglobin 9.9(L) 11.6 - 15.2 gm/dl [facility] HCT 28.6(L) 34.9 - 44.4 % [facility] MCV 92 81 - 98 fl [facility] MCH 31.9 26.7 - 33.3 pg [facility] MCHC 34.6 32.1 - 35.9 gm/dl [facility] PLT 222 141 - 320 K/cmm [facility] RDW-CV 14.8(H) 11.7 - 14.6 % [facility] 09/12/2007 19:0 0 EDT 09/12/2007 19:10 EDT Elke Araujo MD HEMATOLOGY & PF4 ORD ERABLES Performing Organization Address [facility]/ZIP Co de Phone Number [facility] [address] [place] [address] * (ABNORMAL) GLUCOSE, GLUCOMETER (09/12/2007 18:48 EDT) Glucose, Fingerstick 110(H) 70 - 100 mg/dl [facility] Sales [employer] Marketing Associate ID [id number] Test Performed by Nursing Services [facility] 09/12/2007 18:4 8 EDT 09/13/2007 10:51 EDT Elke Araujo MD CHEMISTRY & BLOOD GA S ORDERABLES Performing Organization Address [facility]/ZIP Co de Phone Number [facility] [address] [place] [address] * GLUCOSE, GLUCOMETER (09/12/2007 13:35 EDT) Glucose, Fingerstick 81 70 - 100 mg/dl [facility] Sales And Marketing Associate ID [id number] Test Performed by Nursing Services [facility] 09/12/2007 13:3 5 EDT 09/13/2007 2:40 EDT Elke Araujo MD CHEMISTRY & BLOOD GA S ORDERABLES Performing Organization Address [facility] Co de Phone Number [facility] [address] [place] [address] * GLUCOSE, GLUCOMETER (09/12/2007 11:48 EDT) Glucose, Fingerstick 93 70 - 100 mg/dl [facility] Sales And Marketing Associate ID [id number] Test Performed by Nursing Services [facility] 09/12/2007 11:4 8 EDT 09/13/2007 2:40 EDT Elke Araujo MD CHEMISTRY & BLOOD GA S ORDERABLES Performing Organization Address [facility] Co de Phone Number [facility] [address] [place] [address] * GLUCOSE, GLUCOMETER (09/12/2007 9:31 EDT) Glucose, Fingerstick 93 70 - 100 mg/dl [facility] Sales And Marketing Associate ID [id number] Test Performed by Nursing Services [facility] 09/12/2007 9:31 EDT 09/13/2007 2:40 EDT Elke Araujo MD CHEMISTRY & BLOOD GA S ORDERABLES Performing Organization Address [facility] Co de Phone Number [facility] [address] [place] [address] * (ABNORMAL) HEMAGRAM (09/12/2007 8:15 EDT) WBC 11.18 4.0 - 12.4 K/cmm [facility] RBC 3.91 3.86 - 5.04 M/cmm [facility] Hemoglobin 12.3 11.6 - 15.2 gm/dl [facility] HCT 36.0 34.9 - 44.4 % [facility] MCV 92 81 - 98 fl [facility] MCH 31.4 26.7 - 33.3 pg [facility] MCHC 34.1 32.1 - 35.9 gm/dl [facility] PLT 171 141 - 320 K/cmm [facility] RDW-CV 15.2(H) 11.7 - 14.6 % [facility] 09/12/2007 8:15 EDT 09/12/2007 8:20 EDT Elke Araujo MD HEMATOLOGY & PF4 ORD ERABLES [facility] [address] [place] [address] documented in this encounter Visit Diagnoses Not on filedocumented in this encounter
--- OUTSIDE RECORDS SUMMARY | 2024-02-14 15:29 | XMS_ITS | Encounter Summary ---
Author Organization [facility] Address [address] [place] [address] Care Team Providers Care Change Over Name Role Phone Unavailable Primary Care Provider Unavailabl e Encounter Details Date Type Department Care Team (Late st Contact Info) Description 07/28/2007 8:58 EDT Hospital Encounter [facility] [address] [place] [address] Marlon Guillen MD [address] [place] [phone] Cameron Hemphill MD [address] [place], [place] [id number] Social History Tobacco Use Types Packs/Day Years [...] 9:08 EDT documented as of this encounter Plan of Treatment Not on file documented as of this encounter Goals Goal Patient Goal Type Associated Problems Recent Progress Patient-Stated? Author HEMOGLOBIN A1C < 7.0 Result Component Type 2 diabetes mellitus ([facility]) 8.7(07/07/2015 5:05 EST) No Annmarie Vigil documented as of this encounter Procedures Procedure Name Priority Date/Time Associated Diagnosis Comments [facility] BIOPHYSICAL PROFILE 07/28/2007 13:07 EDT documented in this encounter Results * LONGTERM BIOPHYSICAL PROFILE (07/28/2007 13:07 EDT) Anatomical Region Laterality Modality Other 07/28/2007 13:0 7 EDT Narrative 10/10/2008 13:48 EDT BPP W/NST - DIABETES Please refer to the separate [facility] report. ??Contact Maternal Medicine. Procedure Note Haim Méndez MD - 10/10/2008 BPP W/NST - DIABETES Please refer to the separate [facility] report. Contact Maternal Medicine. Cameron Hemphill MD IMG LONGTER[facility] ORDERABLE S documented in this encounter Visit Diagnoses Not on filedocumented in this encounter Additional Health Concerns Infection Onset Date Last Indicated Resolved Time MRSA Comment:IP note: risk factors - DM, obesity Pos sinus 06/30/17 M [place] 07/01/17 07/01/2017 07/01/2017 documented as of this encounter
--- OUTSIDE RECORDS SUMMARY | 2024-02-14 15:29 | XMS_ITS | Encounter Summary ---
Author Organization [facility] Address [address] [place] [address] Care Team Providers Care Support Services Tech Name Role Phone Tamara Neal MD Primary Care Provider + Reason for Visit * Reason Onset Date Comments Medications Refill 09/28/2009 Encounter Details Date Type Department Care Team (Late st Contact Info) Description 09/28/2009 Refill [facility] Family Medicine [address] [address] Tamara Neal MD [address] [place] [phone] Medications Refill Social History Tobacco Use Types [...] Start Date End Da te metformin (GLUCOPHAGE) 500 mg tablet Take 1 Tab by mouth 3 times daily before meals. 90 Tab 1 09/28/2009 10/11/2009 spironolactone (ALDACTONE) 25 mg tablet Take 1 Tab by mouth 2 times daily. 60 Tab 1 09/28/2009 01/16/2010 documented in this encounter Miscellaneous Notes * Telephone Encounter - Deborah Tierney - 09/28/2009 1417 EDT Last OV 09/06/09 Next OV 10/04/09. Patient is out of her Spironolactone documented in this encounter Plan of Treatment Not on file documented as of this encounter Visit Diagnoses Not on filedocumented in this encounter Discontinued Medications Medication Sig Discontinue Reason Start Date End Da te spironolactone (ALDACTONE) 25 mg tablet Take 1 Tab by mouth 2 times daily. Reorder 09/28/2009 metformin (GLUCOPHAGE) 500 mg tablet Take 1 Tab by mouth 3 times daily before meals. Reorder 09/28/2009 documented as of this encounter Care Teams Support Services Tech Relationship Specialty Start Date End Date Tamara Neal MD [address] [place] [phone] PCP - General 09/13/08 03/18/13 documented as of this encounter
--- OUTSIDE RECORDS SUMMARY | 2024-02-14 15:29 | XMS_ITS | Encounter Summary ---
Author Organization [facility] Address [address] [place] [id number] Care Team Providers Care Orchid Transplanter Name Role Phone Tamara Neal MD Primary Care Provider + Reason for Visit * Reason Comments Neck Pain Encounter Details Date Type Department Care Team (Late st Contact Info) Description 08/11/2009 9:00 EDT Office Visit [facility] Family Medicine [address] [address] Unknown, Provider, Noemi Funk MD Holmes, Lewis B, MD MPH [address] [place] [phone] Neck pain (Primary Dx) Social History Tobacco Use Types Packs/Day Years Used Date Smoking Tobacco: Never Alcohol Use Standard Drinks/Week Comments Not Asked 0 (1 standard drink = 0.6 oz pur e alcohol) Sex and Gender Information Value Date Recorded Sex Assigned at Not on file Gender Identity Not on file Sexual Orientation Not on file documented as of this encounter Last Filed Vital Signs Vital Sign Reading Time Taken Comments Blood Pressure 110/62 08/11/2009 0902 EDT Pulse 60 08/11/2009 0902 EDT Temperature 36.9 ??C (98.5 ??F) 08/11/2009 0902 EDT Respiratory Rate 12 08/11/2009 0902 EDT Oxygen Saturation - - Inhaled Oxygen Concentration - - Weight 95.7 kg (211 lb) 08/11/2009 0902 EDT Height - - Body Mass Index - - documented in this encounter Ordered Prescriptions Prescription Sig Dispensed Refills Start Date End Da te cyclobenzaprine (FLEXERIL) 10 mg tablet Take 1 Tab by mouth every 8 hours as needed for Muscle Spasms. 30 Tab 0 08/11/2009 08/22/2009 documented in this encounter Progress Notes * Gilberto Kaufman MD - 08/11/2009 0943 EDT Subjective: Patient ID: Guzman Jean is an 34 y.o. white female. Chief Complaint: HPINeck pain for last several days. Taking care of woman in her home who was just put on hospice solots of stress. No usual neck pain. Ibuprofen and tylenol not helping. Heat/ice and stretching alsotried. No past medical history on file. No family history on file. Current outpatient prescriptions Medication Sig Dispense Refill ??? citalopram (CELEXA) 20 mg tablet Take 2 Tabs by mouth daily. 30 Each 5 ??? trazodone (DESYREL) 50 mg tablet Take 0.5 Tabs by mouth at bedtime. Take half to one tablet at bedtime 30 Tab 2 ??? metformin (GLUCOPHAGE) 500 mg tablet Take 500 mg by mouth 3 times daily before meals. ??? ibuprofen (MOTRIN) 200 mg tablet Take 2 Tabs by mouth as needed. ??? acetaminophen (TYLENOL) 500 mg tablet Take 1,000 mg by mouth as needed for Pain. ??? cyclobenzaprine (FLEXERIL) 10 mg tablet Take 1 Tab by mouth every 8 hours as needed for Muscle Spasms. 30 Tab 0 No Known Allergies History Social History ??? Marital Status: Spouse Name: N/A Number of Children: N/A ??? Years of Education: N/A Occupational History ??? Not on file. Social History Main Topics ??? Tobacco Use: Never ??? Alcohol Use: Not on file ??? Drug Use: Not on file ??? Sexually Active: Not on file Other Topics Concern ??? Not on file Social History Narrative ??? No narrative on file Review of Systems HENT: Positive for neck pain. Musculoskeletal: Negative for myalgias, back pain, joint pain and falls. Objective: Physical Exam Constitutional: She appears well-developed and well-nourished. She appears not diaphoretic. No distress. Neck: No JVD present. No tracheal deviation present. No thyromegaly present. Pulmonary/Chest: No stridor. Musculoskeletal: Normal range of motion. She exhibits tenderness (in posterior and bilateral neck muscles). Lymphadenopathy: She has no cervical adenopathy. Skin: She is not diaphoretic. Assessment: Encounter Diagnoses Code Name Primary? Qualifier ??? 723.1B Neck pain Yes Plan: Heat, reviewed stretching techniques. Prescribed flexeril which she has used before. F/u if no improvement. documented in this encounter Plan of Treatment Not on file documented as of this encounter Visit Diagnoses Diagnosis Neck pain- Primary Cervicalgia documented in this encounter Care Teams Orchid Transplanter Relationship Specialty Start Date End Date Tamara Neal MD [address] [place] [phone] PCP - General 09/13/08 03/18/13 documented as of this encounter
--- OUTSIDE RECORDS SUMMARY | 2024-02-14 15:29 | XMS_ITS | Encounter Summary ---
Author Organization [facility] Address [address] [place] [address] Care Team Providers Care Drone Software Development Engineer Name Role Phone Tamara Neal MD Primary Care Provider + Stephanie Garces MD Primary Care Provider [phone] Encounter Details Date Type Department Care Team (Late st Contact Info) Description 08/11/2007 Results Only [facility] Obstetrics & Midwifery - [address] [phone] Khalida Quiñones MD Social History Tobacco Use Types Packs/Day Years Used Date Smoking Tobacco: Never Assessed Sex and Gender Information Value Date Recorded Sex Assigned at Not on file Gender Identity Not on file Sexual Orientation Not on file documented as of this encounter Plan of Treatment Not on file documented as of this encounter Procedures Procedure Name Priority Date/Time Associated Diagnosis Comments GROUP B STREP PCR Routine 08/11/2007 10: 56 EDT documented in this encounter Results * GROUP B STREPTOCOCCUS MOLECULAR DETECTION (08/11/2007 10:56 EDT) Specimen Description Vaginal and Rectal [facility] Result No Group B beta streptococcal DNA detected by PCR. [facility] Report Status Final [id number] [facility] 08/11/2007 10:5 6 EDT 08/11/2007 18:34 EDT Khalida Quiñones MD MICROBIOLOGY - GENER AL ORDERABLES [facility] [address] [place] [address] documented in this encounter Visit Diagnoses Not on filedocumented in this encounter Care Teams Drone Software Development Engineer Relationship Specialty Start Date End Date Tamara Neal MD [address] [place] [phone] PCP - General 09/13/08 03/18/13 Stephanie Garces MD [address] [place] [phone] PCP - General 08/19/08 09/12/08 documented as of this encounter
--- OUTSIDE RECORDS SUMMARY | 2024-02-14 15:29 | XMS_ITS | Encounter Summary ---
Author Organization [facility] Address [address] [place] [address] Care Team Providers Care Automatic Corn Grinder Operator Name Role Phone Tamara Neal MD Primary Care Provider + Encounter Details Date Type Department Care Team (Late st Contact Info) Description 06/09/2009 Abstract [facility] Medicine - [address] [address] Tamara Neal MD [address] [place] [phone] Routine general medical examination at health care facility; Type 2 diabetes mellitus without (mention of) complications; Polycystic ovaries; Contraceptive management; Insertion of (intrauterine) contraceptive device Social History Tobacco Use Types Packs/Day Years Used Date Smoking Tobacco: Never Assessed Sex and Gender Information Value Date Recorded Sex Assigned at Not on file Gender Identity Not on file Sexual Orientation Not on file documented as of this encounter Plan of Treatment Not on file documented as of this encounter Visit Diagnoses Diagnosis Routine general medical examination at health care facility Routine general medical examination at a health care facility Type 2 diabetes mellitus without (mention of) complications Type II or unspecified type diabetes mellitus without mention of complication, not stated as uncontrolled Polycystic ovaries Contraceptive management Unspecified contraceptive management Insertion of (intrauterine) contraceptive device Encounter for insertion of intrauterine contraceptive device documented in this encounter Historical Medications * This list may reflect changes made after this encounter. Medication Sig Dispensed Refills Start Date End Date acetaminophen (TYLENOL) 500 mg tablet Take 2 Tabs by mouth every 4 hours as needed. 04/27/2014 ibuprofen (MOTRIN) 200 mg tablet Take 3 Tabs by mouth every 6 hours as needed. 12/31/2013 metformin (GLUCOPHAGE) 500 mg tablet Take 1 Tab by mouth 3 times daily before meals. 09/28/2009 added in this encounter Care Teams Automatic Corn Grinder Operator Relationship Specialty Start Date End Date Tamara Neal MD [address] [place] [phone] PCP - General 09/13/08 03/18/13 documented as of this encounter
--- OUTSIDE RECORDS SUMMARY | 2024-02-14 15:29 | XMS_ITS | Encounter Summary ---
Author Organization [facility] Address [address] [place] [address] Care Team Providers Care Enrichment Director Name Role Phone Unavailable Primary Care Provider Unavailabl e Encounter Details Date Type Department Care Team (Late st Contact Info) Description 08/11/2008 13:35 EDT Hospital Encounter [facility] [place] - [facility] [address] [place] [address] Selvin Hinson MD [address] [phone] Social History Tobacco Use Types Packs/Day Years [...] 2 diabetes mellitus ([facility]) 8.7(07/07/2015 5:05 EST) No Annmarie Vigil documented as of this encounter Visit Diagnoses Not on filedocumented in this encounter Additional Health Concerns Infection Onset Date Last Indicated Resolved Time MRSA Comment:IP note: risk factors - DM, obesity Pos sinus 06/30/17 M Ch[place] 07/01/17 07/01/2017 07/01/2017 documented as of this encounter
--- OUTSIDE RECORDS SUMMARY | 2024-02-14 15:29 | XMS_ITS | Encounter Summary ---
Author Organization [facility] Address [address] [place] [address] Care Team Providers Care Painter Tumbling Barrel Name Role Phone Unavailable Primary Care Provider Unavailabl e Encounter Details Date Type Department Care Team (Late st Contact Info) Description 08/04/2007 13:45 EDT Hospital Encounter [facility] [address] [place] [address] Cameron Hemphill MD [address] [place] [address] Khalida Quiñones MD Discharge Disposition: Auto Discharge [...] Procedure Name Priority Date/Time Associated Diagnosis Comments CUSTODIAL BIOPHYSICAL PROFILE 08/04/2007 14:45 EDT documented in this encounter Results * CUSTODIAL BIOPHYSICAL PROFILE (08/04/2007 14:45 EDT) Anatomical Region Laterality Modality Other 08/04/2007 14:4 5 EDT Narrative 10/10/2008 13:04 EDT BPP,GROWTH/DIABETES Please refer to the separate [facility] report. ??Contact Maternal Medicine. Procedure Note Elke Araujo MD - 10/10/2008 BPP,GROWTH/DIABETES Please refer to the separate [facility] report. Contact Maternal Medicine. Cameron Hemphill MD [facility] ORDERABLE S documented in this encounter Visit Diagnoses Not on filedocumented in this encounter
--- OUTSIDE RECORDS SUMMARY | 2024-02-14 15:29 | XMS_ITS | Encounter Summary ---
Author Organization [facility] Address [address] [place] [address] Care Team Providers Care Steward/Stewardess Deck Name Role Phone Tamara Neal MD Primary Care Provider + Reason for Referral * Consult (Routine) - Closed Specialty Diagnoses / Procedures Referred By Savannah ashton Referred To Contact General Surgery Diagnoses Gallstone Tamara Neal MD [address] [place] [phone] Referral ID Status Reason Start Date Expiration Date V isits Requested Visits Authorized [id number] Closed Specialty Services Required 10/04/2009 1 1 Question Answer Reason for Request: Cholelithiasis, fatty liver Reason for Visit * Reason Comments Back Pain f/u appt. Encounter Details Date Type Department Care Team (Late st Contact Info) Description 10/04/2009 16:45 EDT Office Visit [facility] Family Medicine [address] [address] Tamara Neal MD [address] [place] [phone] LBP (low back pain); Herniated disc; Gallstone; Diabetes (CMS-HCC) (HCC-CMS); Low back pain Social History Tobacco Use [...] Sign Reading Time Taken Comments Blood Pressure 130/70 10/04/2009 1645 EDT Pulse 80 10/04/2009 1645 EDT Temperature 36.9 ??C (98.5 ??F) 10/04/2009 1645 EDT Respiratory Rate - - Oxygen Saturation - - Inhaled Oxygen Concentration - - Weight 96.6 kg (213 lb) 10/04/2009 1645 EDT Height - - Body Mass Index - - documented in this encounter Ordered Prescriptions Prescription Sig Dispensed Refills Start Date End Da te oxycodone-acetaminophen (PERCOCET) 5-325 mg per tabletIndications:Low back pain Take 2 Tabs by mouth every 8 hours as needed for Pain. 1 tab q 4-6 hr prn 40 Tab 0 10/04/2009 10/19/2009 cyclobenzaprine (FLEXERIL) 10 mg tabletIndications:Low back pain Take 1 Tab by mouth 3 times daily as needed for Muscle Spasms. 60 Tab 1 10/04/2009 01/04/2010 documented in this encounter Progress Notes * Tamara Neal MD - 10/04/2009 181 EDT S: here to f/u on LBP, recent LS spine MRI that showed L4 herniated disc with some left L4 nerve root compression. Symptoms gradually improving. Starts PT 10/14. Has [facility] visit at end October. Flexeril 2 tabs at bedtime, sometimes in am as well. Also uses Percocet 2-3 tabs at bedtime as well. Found to have gallstones on MRI, then had RUQ U/S which showed enlarged liver and gallstones but noactive cholecystitis. She does have intermittent RUQ pain and was told her LFTs were abn in past (no records here of that). No fevers, nausea, vomiting or stool changes. Regarding her DMII, sugars have been running high even > 250 even off the prednisone. O: BP 130/70 Pulse 80 Temp(Src) 36.9 ??C (98.5 ??F) (Oral) Wt 96.616 kg (213 lb) LMP 07/18/2009 Gen - obese well INAD A/P LBP with herniated disc and L4 left nerve root compression Hopefully PT with modalities will help Con't Flexeril and Percocet as she is doing for now. Consider intermittently increasing Ibuprofen to 600-800 mg tid prn Gallstones - ref to gen surgery for elective cholecystectomy in future CMP, CBC today DM -II - check HgA1C today, might consider Actos to help with fatty liver as well F/u 2 mos or sooner prn documented in this encounter Plan of Treatment Scheduled Referrals Name Type Priority Associated Diagnoses Orde r Schedule AMB CONSULT GENERAL SURGERY Outpatient Referral Routine Gallstone Ordered: 10/04/2009 documented as of this encounter Results * (ABNORMAL) HEMAGRAM (10/10/2009 7:41 EDT) WBC 10.50 4.0 - 12.4 K/cmm [facility] RBC 4.63 3.86 - 5.04 M/cmm [facility] Hemoglobin 14.6 11.6 - 15.2 gm/dl [facility] HCT 40.4 34.9 - 44.4 % [facility] MCV 87 81 - 98 fl [facility] MCH 31.5 26.7 - 33.3 pg [facility] MCHC 36.1(H) 32.1 - 35.9 gm/dl [facility] PLT 252 141 - 320 K/cmm [facility] RDW-CV 10.4(L) 11.7 - 14.6 % [facility] Comment:Performed at [facility] [employer] [facility], [place], [place] Blood specimen (specimen) 10/10/2009 7:41 EDT 10/10/2009 7:43 EDT Tamara Neal MD HEMATOLOGY & PF4 ORDERABLES [facility] [address] [place] [address] * HEMOGLOBIN A1C (10/10/2009 7:41 EDT) Hemoglobin A1C 9.2 % [facility] Comment: Reference Range: <5.7% Normal 5.7-6.4% Increased risk for diabetes =>6.5% Diagnostic for diabetes (if confirmed) The A1c goal for non adults in general is <7%. The A1c goal for selected patients may be significantly lower than 7% if this can be achieved without significant hypoglycemia or other adverse effects of treatment. Est Avg Glucose 217 mg/dl [facility] Comment: eAG represents the A1c result expressed as average glucose in mg/dl. Blood specimen (specimen) 10/10/2009 7:41 EDT 10/10/2009 7:43 EDT Tamara Neal MD CHEMISTRY & BLOO D GAS ORDERABLES [facility] [address] [place] [address] * (ABNORMAL) COMPREHENSIVE METABOLIC PANEL (10/10/2009 7:41 EDT) Pathologist [facility] Potassium 4.1 3.5 - 5.0 mEq/L [facility] Sodium 139 136 - 145 mEq/L [facility] Chloride 100 96 - 110 mEq/L [facility] CO2 27 24 - 32 mEq/L [facility] Total Alkaline Phosphatase 95 38 - 126 U/L [facility] Bilirubin, Total 0.7 0.2 - 1.3 mg/dl [facility] AST 45 15 - 46 U/L [facility] ALT 66(H) 9 - 52 U/L [facility] Albumin 4.9 3.4 - 4.9 g/dl [facility] Total Protein 7.6 6.5 - 8.3 g/dl [facility] Creatinine 0.69(L) 0.7 - 1.5 mg/dl [facility] GFR, Calculated >60 ml/min/1. 73m2 [facility] BUN 13 10 - 26 mg/dl [facility] Calcium 10.5 8.5 - 10.5 mg/dl [facility] Calculated Calcium 10.0 8.5 - 10.5 mg/dl [facility] Glucose, Serum 258(H) 70 - 100 mg/dl [facility] Fasting? Yes Performed at [facility], [place], [place] [facility] Blood specimen (specimen) 10/10/2009 7:41 EDT 10/10/2009 7:43 EDT Tamara Neal MD CHEMISTRY & BLOO D GAS ORDERABLES [facility] [address] [place] [address] documented in this encounter Visit Diagnoses Diagnosis LBP (low back pain) Lumbago Herniated disc Displacement of intervertebral disc, site unspecified, without myelopathy Gallstone Calculus of gallbladder without mention of cholecystitis or obstruction Diabetes ([facility]) Type II or unspecified type diabetes mellitus without mention of complication, not stated as uncontrolled Low back pain Lumbago documented in this encounter Discontinued Medications Medication Sig Discontinue Reason Start Date End Da te predniSONE (DELTASONE) 20 mg tablet Take by mouth. 60 mg for 3 days, 40 mg for 3 days 09/06/2009 10/04/2009 cyclobenzaprine (FLEXERIL) 10 mg tabletIndications:Low back pain Take 1 Tab by mouth 3 times daily as needed for Muscle Spasms. Reorder 09/12/2009 10/04/2009 oxycodone-acetaminophen (PERCOCET) 5-325 mg per tabletIndications:Low back pain Take 1 Tab by mouth every 4 hours as needed for Pain. 1 tab q 4-6 hr prn Reorder 09/12/2009 10/04/2009 documented as of this encounter Care Teams Steward/Stewardess Deck Relationship Specialty Start Date End Date Tamara Neal MD [address] [place] [phone] PCP - General 09/13/08 03/18/13 documented as of this encounter
--- OUTSIDE RECORDS SUMMARY | 2024-02-14 15:29 | XMS_ITS | Encounter Summary ---
Author Organization [facility] Address [address] [place] [address] Care Team Providers Care Lump Inspector Name Role Phone Tamara Neal MD Primary Care Provider + Reason for Referral * Consult, Test and Treat (Routine) - Closed Specialty Diagnoses / Procedures Referred By Contac t Referred To Contact Physical Therapy / Rehab Therapies Diagnoses Low back pain Arlene Aly MD [address] [place] [phone] Referral ID Status Reason Start Date Expiration Date V isits Requested Visits Authorized [id number] Closed Specialty Services Required 09/12/2009 1 1 Question Answer Reason for Request: low back pain x 1 month, left foot weakness with dorsiflexion, MRI pending * Consult (Routine) - Closed Specialty Diagnoses / Procedures Referred By Contac t Referred To Contact Orthopedic Surgery Diagnoses Low back pain Arlene Aly MD [address] [place] [phone] [facility] [place] [address] Referral ID Status Reason Start Date Expiration Date V isits Requested Visits Authorized [id number] Closed Specialty Services Required 09/12/2009 1 1 Question Answer Reason for Request: low back pain, MRI ordered, left foot weakness with dorsiflexion Reason for Visit * Reason Comments Back Pain Pt notes increasing pain in lower back. x-rays were completed and would like to know results Encounter Details Date Type Department Care Team (Late st Contact Info) Description 09/12/2009 16:00 EDT Office Visit [address] [address] Unknown, Provider, Arlene Aly MD [address] [place] [address] [address] [place] [phone] Low back pain (Primary Dx) Social History Tobacco Use [...] Sign Reading Time Taken Comments Blood Pressure 140/86 09/12/2009 1742 EDT Pulse 84 09/12/2009 1557 EDT Temperature 36.5 ??C (97.7 ??F) 09/12/2009 1557 EDT Respiratory Rate - - Oxygen Saturation - - Inhaled Oxygen Concentration - - Weight 97.1 kg (214 lb) 09/12/2009 1557 EDT Height - - Body Mass Index - - documented in this encounter Ordered Prescriptions Prescription Sig Dispensed Refills Start Date End Da te oxycodone-acetaminophen (PERCOCET) 5-325 mg per tabletIndications:Low back pain Take 1 Tab by mouth every 4 hours as needed for Pain. 1 tab q 4-6 hr prn 40 Tab 0 09/12/2009 10/04/2009 cyclobenzaprine (FLEXERIL) 10 mg tabletIndications:Low back pain Take 1 Tab by mouth 3 times daily as needed for Muscle Spasms. 90 Tab 1 09/12/2009 10/04/2009 documented in this encounter Progress Notes * Arlene Aly - 09/12/2009 1614 EDT Family Medicine Office Visit Subjective: Guzman Jean presents for evaluation of back pain which has been present for one month. Worst at tailbone and radiates down her legs. Pains in her legs to mid thigh and buttocks. Nonumbness or tingling in her legs but she feels like they given out under her. Occurred over the last 3 days. The pain was at its worst on 09/10/09. Constant in nature, aching in quality. Was not active during the day on Saturday or Saturday. She lifts her 2 year old regularly. she has been taking percocet, prednisone, flexeril. Is taking q4 hours. It doesn't seem like it helps at all. Sitting is worst, standing is better but has pain after some time. She has occasional RUQ and right flank pain which is not associated with meals, no cramping in quality. ROS: no nausea or vomiting for weeks, no dysuria; no incontinence. No saddle anesthesia. Objective: Blood pressure 140/86, pulse 84, temperature 36.5 ??C (97.7 ??F), temperature source Oral, weight 97.07 kg (214 lb). Gen: NAD, obese white female in NAD, moves well and talks easily Psych: full affect, logical HEENT: MMM, pupils equal and round Neck: supple CV: S1S2 RRR, no murmurs, rubs or gallops Lungs: CTAB, no wheezes, rhonchi, or rales Abd: soft, nontender, nondistended, +bowel sounds Musculoskeletal: sacral spinal tenderness and SI jt tenderness bilaterally, straight leg raise negative, 90 degrees flexion, 10 degrees extension Neuro: 2+ patellar reflexes bilaterally, right foot 5/5 strength with dorsi/plantar flexion; left foot 5/5 strength with plantar flexion, 4/5 strength with dorsiflexion Ext: no edema, 2+ DPP Assessment/Plan: Guzman Jean is a 34 y.o. female with: Guzman was seen today for back pain. Diagnoses and associated orders for this visit: - Low back pain - no red flags for cauda equina but concerning objective weakness of LLE; will get MRI and refer to ortho spine and also to PT though they will likely not work with the patient in [place] until MRI results back; also will get RUQ ultrasound with history of RUQ abdominal/flank pain and h/o gallstone on xray - Mri spine-lumbar and contents - Refer to Physical therapy - Ambulatory consult orthopedics - Cyclobenzaprine 10 mg tab -- Take 1 Tab by mouth 3 times daily as needed for Muscle Spasms. - Oxycodone-acetaminophen 5 mg-325 mg tab -- Take 1 Tab by mouth every 4 hours as needed for Pain. 1 tab q 4-6 hr prn - Rad us abdomen one organ marking Follow up in: [address] Neal as scheduled. Attestation statement: I discussed the patient with the resident/fellow at the time of the visit and agree with the findings and plan of care. Nini Man MD 09/12/2009 4:23 PM Attestation statement: I discussed the patient with the resident/fellow at the time of the visit and agree with the findings and the plan of care documented in the resident's/fellow's note. Nini Man MD 09/13/2009 1:15 PM documented in this encounter Plan of Treatment Scheduled Referrals Name Type Priority Associated Diagnoses Order Schedule AMB CONSULT ORTHOPEDICS Outpatient Referral Routine Low back pain Ordered: 09/12/2009 AMB CONSULT PHYSICAL THERAPY Outpatient Referral Routine Low back pain Ordered: 09/12/2009 documented as of this encounter Procedures Procedure Name Priority Date/Time Associated Diagnosis Comments MR LUMBAR SPINE WO CONTRAST 09/23/2009 13:56 EDT documented in this encounter Results * MR LUMBAR SPINE WO CONTRAST (09/23/2009 13:56 EDT) Anatomical Region Laterality Modality Other 09/23/2009 13:5 6 EDT 09/23/2009 17:03 EDT Narrative 09/23/2009 17:03 EDT MRI LUMBAR SPINE WITHOUT CONTRAST September 23, 2009 01:56:00 PM Signs and Symptoms: Low back pain for one month, left foot weakness. Comparison: Plain films September 12, 2009. Technique: Sagittal T1, T2 and STIR, axial T1 and T2, and coronal T2 and T2 fat saturated MR images of the lumbar spine were obtained. Findings: There is a low signal intensity filling defect within the gallbladder which measures approximately 1.7 cm in diameter. Significant scoliotic curvature is not appreciated. No swetha or retrolisthesis is identified. Vertebral body heights are well-maintained. Marrow signal is unremarkable. Disc space heights are well-maintained. There is slight loss of disc signal at L4-L5 and L5-S1 consistent with very early disc degeneration. Mild facet degeneration is also noted at L4-L5 and L5-S1. There is a small foraminal disc herniation on the left at L4-L5 producing moderate left neuroforaminal stenosis. The conus terminates normally at the L1 level. Impression: 1. Mild lower lumbar facet and disc degeneration. 2. Small left paracentral disc herniation at L4-L5 which contacts the exiting L4 nerve root and could produce left L4 radiculopathy. 3. Cholelithiasis. Procedure Note 09/23/2009 MRI LUMBAR SPINE WITHOUT CONTRAST September 23, 2009 01:56:00 PM Signs and Symptoms: Low back pain for one month, left foot weakness. Comparison: Plain films September 12, 2009. Technique: Sagittal T1, T2 and STIR, axial T1 and T2, and coronal T2 and T2 fat saturated MR images of the lumbar spine were obtained. Findings: There is a low signal intensity filling defect within the gallbladder which measures approximately 1.7 cm in diameter. Significant scoliotic curvature is not appreciated. No swetha or retrolisthesis is identified. Vertebral body heights are well-maintained. Marrow signal is unremarkable. Disc space heights are well-maintained. There is slight loss of disc signal at L4-L5 and L5-S1 consistent with very early disc degeneration. Mild facet degeneration is also noted at L4-L5 and L5-S1. There is a small foraminal disc herniation on the left at L4-L5 producing moderate left neuroforaminal stenosis. The conus terminates normally at the L1 level. Impression: 1. Mild lower lumbar facet and disc degeneration. 2. Small left paracentral disc herniation at L4-L5 which contacts the exiting L4 nerve root and could produce left L4 radiculopathy. 3. Cholelithiasis. Nini Quach MD [facility] ORDERABLE S documented in this encounter Visit Diagnoses Diagnosis Low back pain- Primary Lumbago documented in this encounter Discontinued Medications Medication Sig Discontinue Reason Start Date End Da te cyclobenzaprine (FLEXERIL) 10 mg tabletIndications:Back pain Take 1 Tab by mouth every 8 hours as needed for Muscle Spasms. 09/06/2009 09/12/2009 oxycodone-acetaminophen (PERCOCET) 5-325 mg per tabletIndications:Back pain Take 1 Tab by mouth every 4 hours as needed for Pain. 1 tab q 4-6 hr prn Reorder 09/06/2009 09/12/2009 documented as of this encounter Care Teams Lump Inspector Relationship Specialty Start Date End Date Tamara Neal MD [address] [place] [phone] PCP - General 09/13/08 03/18/13 documented as of this encounter
--- OUTSIDE RECORDS SUMMARY | 2024-02-14 15:29 | XMS_ITS | Encounter Summary ---
Author Organization [facility] Address [address] [place] [address] Care Team Providers Care Child Care Education Coordinator Name Role Phone Tamara Neal MD Primary Care Provider + Encounter Details Date Type Department Care Team (Latest Contact Info) Description 09/12/2009 7:45 EDT - 09/12/2009 23:59 EDT Hospital Encounter [facility] [address] [place] [phone] Tamara Neal MD [address] [place] [phone] Discharge Disposition: Auto Discharge Social History Tobacco [...] Muscle Spasms. 90 Tab 1 09/12/2009 10/04/2009 ibuprofen (MOTRIN) 200 mg tablet Take 3 Tabs by mouth every 6 hours as needed. 12/31/2013 levonorgestrel (MIRENA) 20 mcg/24 hr IUD 1 Each by Intrauterine route once. 08/26/2008 05/01/2013 metformin (GLUCOPHAGE) 500 mg tablet Take 1 Tab by mouth 3 times daily before meals. 09/28/2009 oxycodone-acetaminophe n (PERCOCET) 5-325 mg per tabletIndications:Low back pain Take 1 Tab by mouth every 4 hours as needed for Pain. 1 tab q 4-6 hr prn 40 Tab 0 09/12/2009 10/04/2009 predniSONE (DELTASONE) 20 mg tablet Take by mouth. 60 mg for 3 days, 40 mg for 3 days 30 Tab 0 09/06/2009 10/04/2009 spironolactone (ALDACTONE) 25 mg tablet Take 1 Tab by mouth 2 times daily. 09/28/2009 trazodone (DESYREL) 50 mg tablet Take 0.5-1 [...] on filedocumented in this encounter Care Teams Child Care Education Coordinator Relationship Specialty Start Date End Date Tamara Neal MD [address] [place] [phone] PCP - General 09/13/08 03/18/13 documented as of this encounter
--- OUTSIDE RECORDS SUMMARY | 2024-02-14 15:29 | XMS_ITS | Encounter Summary ---
Author Organization [facility] Address [address] [place] [address] Care Team Providers Care Business Professor Name Role Phone Tamara Neal MD Primary Care Provider + Reason for Visit * Reason Onset Date Comments Blood Sugar Problem 10/14/2009 Encounter Details Date Type Department Care Team (Late st Contact Info) Description 10/14/2009 Telephone [facility] - [address] [address] Tamara Neal MD [address] [place] [phone] Blood Sugar Problem Social History Tobacco Use [...] Telephone Encounter - Tamara Neal MD - 10/15/2009 1057 EDT It can also wait until i return and we can discuss at [facility]. * Telephone Encounter - Santa Guerrero RN - 10/15/2009 0961 EDT THE issue was addressed in a letter from 10/11/[address] Neal * Telephone Encounter - Hay Angel - 10/14/2009 1829 EDT This should either wait for Dr. Neal or should have an OV to discuss with another provider to discuss risks and benefits of different options. * Telephone Encounter - Santa Guerrero, RN - 10/14/2009 1250 EDT Last hbga1c was 9.2. 10/04/09 note mentions actos. Pt would like to get onto something, her blood sugars are still running in the 200's * Telephone Encounter - Eleanor Biggs LPN - 10/14/2009 0947 EDT Left messge for patient to call regarding her blood sugars. * Telephone Encounter - Nadine Stewart - 10/14/2009 0927 EDT Patient is concerned with her sugar levels, would like to speak to a nurse, thanks. documented in this encounter Plan of Treatment Not on file documented as of this encounter Visit Diagnoses Not on filedocumented in this encounter Care Teams Business Professor Relationship Specialty Start Date End Date Tamara Neal MD [address] [place] [phone] PCP - General 09/13/08 03/18/13 documented as of this encounter
--- OUTSIDE RECORDS SUMMARY | 2024-02-14 15:29 | XMS_ITS | Encounter Summary ---
Author Organization [facility] Address [address] [place] [address] Care Team Providers Care Movie Star Name Role Phone Tamara Neal MD Primary Care Provider + Reason for Visit * Reason Comments Anxiety Depression Sinusitis post nasal drip;coug h Encounter Details Date Type Department Care Team (Late st Contact Info) Description 06/14/2009 17:00 EST Office Visit [facility] Medicine [address] [address] Tamara Neal MD [address] [place] [phone] Anxiety; Insomnia Social History Tobacco Use Types Packs/Day [...] Sign Reading Time Taken Comments Blood Pressure 120/80 06/14/2009 1652 EST Pulse 96 06/14/2009 1652 EST Temperature 36.7 ??C (98.1 ??F) 06/14/2009 1652 EST Respiratory Rate - - Oxygen Saturation - - Inhaled Oxygen Concentration - - Weight 100.2 kg (220 lb 12.8 oz) 06/14/2009 1652 EST Height - - Body Mass Index - - documented in this encounter Ordered Prescriptions Prescription Sig Dispensed Refills Start Date End Da te trazodone (DESYREL) 50 mg tablet Take 0.5 Tabs by mouth at bedtime. Take half to one tablet at bedtime 30 Tab 2 06/14/2009 08/22/2009 citalopram (CELEXA) 20 mg tablet Take 2 Tabs by mouth daily. 30 Each 5 06/14/2009 09/06/2009 documented in this encounter Progress Notes * Tamara Neal MD - 06/14/2009 1831 EST S: here to f/u on anxiety and insomnia. Tolerating Celexa 20 mg daily, actually does not feel any different and would like to increase dose. Sleep has always been issue, works nights 3 times weekly. Ambien during has helped in past. Has never used Trazodone. Sinus symptoms resolved after 14 days Amoxicillin, con't to use saline sinus irrigation. For few days now more postnasal drip O: vitals reviewed Alert INAD A/P: 1. Anxiety and sleep disturbance - increase Celexa to 40 mg daily, trial Trazodone 25-50 mg QHS F/u 6-8 wks or sooner prn 2. URI no indication for ABX at this point, con't saline irrigation documented in this encounter Plan of Treatment Not on file documented as of this encounter Visit Diagnoses Diagnosis Anxiety Anxiety state, unspecified Insomnia Insomnia, unspecified documented in this encounter Discontinued Medications Medication Sig Discontinue Reason Start Date End Da te citalopram (CELEXA) 20 mg tablet Take 20 mg by mouth daily. 06/14/2009 documented as of this encounter Historical Medications * This list may reflect changes made after this encounter. Medication Sig Dispensed Refills Start Date End Date citalopram (CELEXA) 20 mg tablet Take 20 mg by mouth daily. 06/14/2009 added in this encounter Care Teams Movie Star Relationship Specialty Start Date End Date Tamara Neal MD [address] [place] [phone] PCP - General 09/13/08 03/18/13 documented as of this encounter
--- OUTSIDE RECORDS SUMMARY | 2024-02-14 15:29 | XMS_ITS | Encounter Summary ---
Author Organization [facility] Address [address] [place] [address] Care Team Providers Care Private Secretary Name Role Phone Unavailable Primary Care Provider Unavailabl e Encounter Details Date Type Department Care Team (Latest Contact Info) Description 08/08/2007 6:43 EDT - 08/08/2007 11:59 EDT Hospital Encounter [facility] - Other [address] [place] [address] Khalida Quiñones MD Discharge Disposition: Home or Self [...]
--- OUTSIDE RECORDS SUMMARY | 2024-02-14 15:29 | XMS_ITS | Encounter Summary ---
Author Organization [facility] Address [address] [place] [address] Care Team Providers Care Set Up Operator Name Role Phone Unavailable Primary Care Provider Unavailabl e Encounter Details Date Type Department Care Team (Latest Contact Info) Description 08/06/2007 17:26 EDT Hospital Encounter [facility] [address] [place] [address] Khalida Quiñones MD Discharge Disposition: Home or [...] Comments COMPLETE BLOOD COUNT AND DIFFERENTIAL Routine 08/06/2007 18:11 EDT C REACTIVE PROTEIN Routine 08/06/2007 18 :11 EDT URINALYSIS WITH MICROSCOPIC IF POSITIVE Routine 08/06/2007 17:41 EDT UA REFLEX Routine 08/06/2007 17:41 EDT URINE CULTURE IF POSITIVE Routine 08/06/2007 17:41 EDT documented in this encounter Results * (ABNORMAL) C-REACTIVE PROTEIN (08/06/2007 18:11 EDT) C-Reactive Protein 1.4(H) <1.0 mg/dl [facility] 08/06/2007 18:1 1 EDT 08/06/2007 18:36 EDT Khalida Quiñones MD CHEMISTRY & BLOOD GA S ORDERABLES [facility] [address] [place] [address] * (ABNORMAL) HEMAGRAM AND DIFFERENTIAL (08/06/2007 18:11 EDT) WBC 11.99 4.0 - 12.4 K/cmm [facility] RBC 3.48(L) 3.86 - 5.04 M/cmm [facility] Hemoglobin 11.2(L) 11.6 - 15.2 gm/dl [facility] HCT 31.6(L) 34.9 - 44.4 % [facility] MCV 91 81 - 98 fl [facility] MCH 32.3 26.7 - 33.3 pg [facility] MCHC 35.6 32.1 - 35.9 gm/dl [facility] PLT 292 141 - 320 K/cmm [facility] RDW-CV 13.5 11.7 - 14.6 % [facility] % Neutrophils 69.9 45.5 - 79.7 % [facility] % Lymphocytes 22.2 15.0 - 46.8 % [facility] % Monocytes 7.2 1.8 - 12.0 % [facility] % Eosinophils 0.3(L) 0.6 - 6.9 % [facility] % Basophils 0.4 0.2 - 1.4 % [facility] ABS Neutrophils 8.38 2.20 - 8.85 K/cmm [facility] ABS Lymphs 2.66 1.09 - 3.30 K/cmm [facility] ABS Monocytes 0.87(H) 0.1 - 0.8 K/cmm [facility] ABS Eosinophils 0.03 0.03 - 0.61 K/cmm [facility] ABS Basophils 0.05 0.01 - 0.11 K/cmm [facility] Type of Diff: Automated [facility] 08/06/2007 18:1 1 EDT 08/06/2007 18:36 EDT Khalida Quiñones MD PACKAGES & DNA PROBE ORDERABLES Performing Organization Address City/[facility]/ZIP Co de Phone Number [facility] [address] [place] [address] * UA REFLEX (08/06/2007 17:41 EDT) UA Billing Microscopic not indicated. [facility] 08/06/2007 17:4 1 EDT 08/06/2007 18:36 EDT Khalida Quiñones MD URINALYSIS ORDERABLE S Performing Organization Address [facility] Co de Phone Number [facility] [address] [place] [address] * (ABNORMAL) URINALYSIS (08/06/2007 17:41 EDT) Color, UA Yellow [facility] Clarity, UA Clear [facility] Glucose, UA Norm NORM [facility] Bilirubin, UA Neg NEG [facility] Ketones, UA Neg NEG [facility] Specific [place], Urine <1.005(L) 1.005 - 1.02 [facility] Blood, UA Neg NEG [facility] pH, UA 6.0 5.0 - 9.0 [facility] Protein, UA Neg NEG [facility] Urobilinogen, UA Norm NORM mg/dL [facility] Nitrite, UA Neg NEG [facility] Leuk Esterase Neg NEG [facility] 08/06/2007 17:4 1 EDT 08/06/2007 18:36 EDT Khalida Quiñones MD URINALYSIS ORDERABLE S Performing Organization Address City/[facility]/ZIP Co de Phone Number [facility] [address] [place] [address] * CULTURE IF UA POSITIVE (08/06/2007 17:41 EDT) Culture if Indicated Culture not indicated by urinalysis results. [facility] 08/06/2007 17:4 1 EDT 08/06/2007 18:36 EDT Khalida Quiñones MD MICROBIOLOGY - GENER AL ORDERABLES Performing Organization Address City/State/[facility] Co de Phone Number [facility] [address] [place] [address] documented in this encounter Visit Diagnoses Not on filedocumented in this encounter
--- OUTSIDE RECORDS SUMMARY | 2024-02-14 15:29 | XMS_ITS | Encounter Summary ---
Author Organization [facility] Address [address] [place] [address] Care Team Providers Care Bible Worker Name Role Phone Unavailable Primary Care Provider Unavailabl e Encounter Details Date Type Department Care Team (Latest Contact Info) Description 06/10/2008 10:53 EST - 06/10/2008 11:[address] [facility] [address] [place] [address] Riky Garber MD Graham, Michael S, MD [address] [phone] Discharge Disposition: Auto Discharge Social History Tobacco [...]
--- OUTSIDE RECORDS SUMMARY | 2024-02-14 15:29 | XMS_ITS | Encounter Summary ---
Author Organization [facility] Address [address] [place] [address] Care Team Providers Care Log Hauler Name Role Phone Unavailable Primary Care Provider Unavailabl e Encounter Details Date Type Department Care Team (Late st Contact Info) Description 09/01/2007 16:17 EDT Hospital Encounter [address] [address] Charity Onofre MD [address] [place] [address], [address] [place] [phone] Khalida Quiñones MD Discharge Disposition: Auto Discharge [...] Date/Time Associated Diagnosis Comments LONGTERM BIOPHYSICAL PROFILE 09/01/2007 18:00 EDT documented in this encounter Results * LONGTERM BIOPHYSICAL PROFILE (09/01/2007 18:00 EDT) Anatomical Region Laterality Modality Other 09/01/2007 18:0 0 EDT Narrative 10/10/2008 13:06 EDT BPP/DIABETES Please refer to the separate [facility] report. ??Contact Maternal Medicine. Procedure Note Charity Onofre MD - 10/10/2008 BPP/DIABETES Please refer to the separate [facility] report. Contact Maternal Medicine. Charity Onofre MD [facility] LONGTERM ORDERABLE S documented in this encounter Visit Diagnoses Not on filedocumented in this encounter
--- OUTSIDE RECORDS SUMMARY | 2024-02-14 15:29 | XMS_ITS | Encounter Summary ---
Author Organization [facility] Address [address] [place] [address] Care Team Providers Care Color Control Supervisor Name Role Phone Tamara Neal MD Primary Care Provider + Encounter Details Date Type Department Care Team (Late st Contact Info) Description 09/13/2008 11:34 EDT - 09/13/2008 23:59 EDT Hospital Encounter [facility] - [address] [address] Chiquita Ceron MD [address] [place] [phone] Discharge Disposition: Auto Discharge Social History Tobacco [...] Name Priority Date/Time Associated Diagnosis Comments GROUP A STREP CULTURE Routine 09/13/2008 15:58 EDT documented in this encounter Results * CULTURE FOR GROUP A BETA STREPTOCOCCUS (09/13/2008 15:58 EDT) Specimen Description Throat [facility] Result NO GROUP A BETA STREPTOCOCCI ISOLATED [facility] Report Status Final 09/15/2008 [facility] Specimen of unknown material (specimen) 09/13/2008 15:58 EDT 09/13/2008 20:31 EDT Jeana Souza MD MICROBIOLOGY - NERAL ORDERABLES [facility] [address] [place] [address] documented in this encounter Visit Diagnoses Not on filedocumented in this encounter Care Teams Color Control Supervisor Relationship Specialty Start Date End Date Tamara Neal MD [address] [place] [phone] PCP - General 09/13/08 03/18/13 documented as of this encounter
--- OUTSIDE RECORDS SUMMARY | 2024-02-14 15:29 | XMS_ITS | Encounter Summary ---
Author Organization [facility] Address [address] [place] [address] Care Team Providers Care Dowel Sticker Operator Name Role Phone Unavailable Primary Care Provider Unavailabl e Encounter Details Date Type Department Care Team (Latest Contact Info) Description 05/20/2008 9:02 EST - 05/20/2008 11:59 EST Hospital Encounter [facility] - Maple conversion [address] [place] [address] Riky Garber MD Felemegos, Ioannis Y, MD [address] [place] [phone] Discharge Disposition: Auto Discharge Social History Tobacco [...] Priority Date/Time Associated Diagnosis Comments HEPATITIS B SURFACE ANTIBODY Routine 05/20/2008 13:45 EST VARICELLA IGG ANTIBODY Routine 05/20/2008 13:45 EST MUMPS ANTIBODY IGG Routine 05/20/2008 13 :45 EST documented in this encounter Results * MUMPS ANTIBODY IGG (05/20/2008 13:45 EST) Mumps Antibody IgG Positive [facility] 05/20/2008 13:4 5 EST 05/20/2008 13:48 EST Nurse Employee Health IMMUNOLOGY AND SER OLOGY ORDERABLES Performing Organization Address [facility] de Phone Number [facility] [address] [place] [address] * VARICELLA IGG ANTIBODY (05/20/2008 13:45 EST) Varicella IgG Ab Positive [facility] 05/20/2008 13:4 5 EST 05/20/2008 13:48 EST Nurse Employee Health IMMUNOLOGY AND SER OLOGY ORDERABLES Performing Organization Address [facility] de Phone Number [facility] [address] [place] [address] * HEPATITIS B SURFACE ANTIBODY (05/20/2008 13:45 EST) Hepatitis B Surface Ab Positive Reference Range: ??Negative Interpretati on depends on clinical setting. [facility] 05/20/2008 13:4 5 EST 05/20/2008 13:48 EST Nurse Employee Health CHEMISTRY & BLOOD GAS ORDERABLES Performing Organization Address [facility] de Phone Number [facility] [address] [place] [address] documented in this encounter Visit Diagnoses Not on filedocumented in this encounter
--- OUTSIDE RECORDS SUMMARY | 2024-02-14 15:29 | XMS_ITS | Encounter Summary ---
Author Organization [facility] Address [address] [place] [address] Care Team Providers Care Retail Shift Supervisor Name Role Phone Unavailable Primary Care Provider Unavailabl e Encounter Details Date Type Department Care Team (Late st Contact Info) Description 01/21/2008 13:09 EDT Hospital Encounter [facility] - Maple conversion [address] [place] [address] Tyron Sheth MD [address] [facility] [address] [place] [phone] Unknown, Provider, Social History Tobacco Use Types [...]
--- OUTSIDE RECORDS SUMMARY | 2024-02-14 15:29 | XMS_ITS | Encounter Summary ---
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 60 Tab 2 10/11/2009 02/15/2010 pioglitazone (ACTOS) 15 mg tablet Take 1 Tab by mouth daily. 30 Tab 3 10/11/2009 01/04/2010 documented in this encounter Plan of Treatment [...] mouth 3 times daily before meals. 09/28/2009 10/11/2009 documented as of this encounter Care Teams Marketing Trainee Relationship Specialty Start Date End Date Tamara Neal MD [address] [place] [phone] PCP - General 09/13/08 03/18/13 documented as of this encounter
--- OUTSIDE RECORDS SUMMARY | 2024-02-14 15:29 | XMS_ITS | Encounter Summary ---
Author Organization [facility] Address [address] [place] [address] Care Team Providers Care Superintendent Production Name Role Phone Tamara Neal MD Primary Care Provider + Encounter Details Date Type Department Care Team (Latest Contact Info) Description 10/03/2009 7:28 EDT - 10/03/2009 23:59 EDT Hospital Encounter [facility] [address] [place] [phone] Tamara Neal MD [address] [place] [phone] Discharge Disposition: Auto Discharge Social History Tobacco [...] before meals. 90 Tab 1 09/28/2009 10/11/2009 oxycodone-acetaminophe n (PERCOCET) 5-325 mg per tabletIndications:Low [...] on filedocumented in this encounter Care Teams Superintendent Production Relationship Specialty Start Date End Date Tamara Neal MD [address] [place] [phone] PCP - General 09/13/08 03/18/13 documented as of this encounter
--- OUTSIDE RECORDS SUMMARY | 2024-02-14 15:29 | XMS_ITS | Encounter Summary ---
Author Organization [facility] Address [address] [place] [address] Care Team Providers Care Setter Automatic Spinning Lathe Name Role Phone Tamara Neal MD Primary Care Provider + Reason for Visit * Reason Onset Date Comments Medication Problem 06/15/2009 Encounter Details Date Type Department Care Team (Late st Contact Info) Description 06/15/2009 Refill [facility] Family Medicine - [address] [phone] Tamara Neal MD [address] [place] [phone] Medication Problem Social History Tobacco Use Types [...] Telephone Encounter - Latesha Naqvi LPN - 06/15/2009 1125 EST Noted, message in patients chart. * Telephone Encounter - Mikki Dordao - 06/15/[address] Neal prescribed Citalopram 20mg 2BID Qty: 30 with 5-Refills. Pharmacy called and we changed quantity to #60 but this needs to be documented in prism. documented in this encounter Plan of Treatment Not on file documented as of this encounter Visit Diagnoses Not on filedocumented in this encounter Care Teams Setter Automatic Spinning Lathe Relationship Specialty Start Date End Date Tamara Neal MD [address] [place] [phone] PCP - General 09/13/08 03/18/13 documented as of this encounter
--- OUTSIDE RECORDS SUMMARY | 2024-02-14 15:29 | XMS_ITS | Encounter Summary ---
Author Organization [facility] Address [address] [place] [address] Care Team Providers Care Manufacturers Agent Name Role Phone Tamara Neal MD Primary Care Provider + Reason for Visit * Reason Comments Back Pain Encounter Details Date Type Department Care Team (Late st Contact Info) Description 08/22/2009 16:30 EDT Office Visit [facility] Family Medicine [address] [address] Unknown, Provider, Gilberto Kaufman MD MPH [address] [place] [phone] Yee Sweeney MD [address] [place] [phone] Back pain (Primary Dx) Social History Tobacco Use [...] Reading Time Taken Comments Blood Pressure 130/70 08/22/2009 1622 EDT Pulse 80 08/22/2009 1622 EDT Temperature - - Respiratory Rate - - Oxygen Saturation - - Inhaled Oxygen Concentration - - Weight 97.8 kg (215 lb 9.6 oz) 08/22/2009 1622 E DT Height - - Body Mass Index - - documented in this encounter Ordered Prescriptions Prescription Sig Dispensed Refills Start Date End Da te cyclobenzaprine (FLEXERIL) 10 mg tabletIndications:Back pain Take 1 Tab by mouth every 8 hours as needed for Muscle Spasms. 30 Tab 0 08/22/2009 09/06/2009 oxycodone-acetaminophen (PERCOCET) 5-325 mg per tabletIndications:Back pain Take 1 Tab by mouth every 4 hours as needed for Pain. 1 tab q 4-6 hr prn 25 Tab 0 08/22/2009 09/06/2009 trazodone (DESYREL) 50 mg tablet Take 0.5-1 Tabs by mouth at bedtime. Take half to one tablet at bedtime 30 Tab 4 08/22/2009 02/15/2010 documented in this encounter Progress Notes * Yee Sweeney MD - 08/22/2009 1700 EDT Subjective: Patient ID: Guzman Jean is an 34 y.o. female. 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 Patient became pale and had the instant onset of excruciating back pain, was unable to walk. Pain located in bilateral lumbar spine region. Seen in the ED on 08/14 at [facility]. Seen by Dr Angulo 08/15. Has done chiropractic, acupuncture. Overall, back getting better but still sore. Gets worse with certain movements- especially bending, lifting. Taking Flexeril q8 hours. Finished course of Prednisone. Taking Percocet every 5 hours, not taking at night. Has had trouble sleeping. Pain radiates down back of legs (R>L). No weakness, numbness in legs. Able to walk, but is uncomfortable. 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 Patient does note increase stress and anxiety since that time. Really wants to go back to work to get out of the house. Current outpatient prescriptions Medication Sig Dispense Refill ??? spironolactone (ALDACTONE) 25 mg tablet Take 25 mg by mouth 2 times daily. ??? predniSONE (DELTASONE) 20 mg tablet Take 1 Tab by mouth 2 times daily. 14 Tab 0 ??? oxycodone-acetaminophen (PERCOCET) 5-325 mg per tablet Take 1 Tab by mouth every 4 hours as needed for Pain. 1 tab q 4-6 hr prn 25 Tab 0 ??? cyclobenzaprine (FLEXERIL) 10 mg tablet Take 1 Tab by mouth every 8 hours as needed for Muscle Spasms. 30 Tab 0 ??? citalopram (CELEXA) 20 mg tablet [...] mg by mouth as needed for Pain. No Known Allergies History Social History ??? Marital Status: Spouse Name: N/A Number of Children: N/A ??? Years of Education: N/A Occupational History ??? Not on file. Social History Main Topics ??? Tobacco Use: Quit -- 1.0 packs/day for 5 years Quit date: 08/23/2007 ??? Alcohol Use: Not on file ??? Drug Use: Not on file ??? Sexually Active: Not on file Other Topics Concern ??? Not on file Social History Narrative ??? No narrative on file Review of Systems Neurological: Negative for tingling, sensory change and focal weakness. Objective: Physical Exam Vitals reviewed. Constitutional: She appears well-developed. Musculoskeletal: Lumbar back: She exhibits decreased range of motion, tenderness and spasm. She exhibits no bony tenderness, no swelling, no edema and no deformity. Patients get on and off examination table without difficulty. Ambulates without difficulty. Pain located in bilateral lumbar paraspinals. No midline tenderness. Pain with palpation over right sciaticnotch, with pain that radiates down right leg. No pain over left sciatic notch. Neurological: She has normal strength. No sensory deficit. Reflex Scores: Patellar reflexes are 2+ on the right side and 2+ on the left side. Normal sensation, strength, and reflexes in bilateral lower extremities. Assessment: 1. Back pain, improving. Likely due to lumbar strain from inappropriate lifting technique Plan: - Back pain - Percocet 5/325 -- Take 1 tab PO q4-6 hours prn pain. - Flexeril 10 mg tab -- Take 1 tab PO q8 hours prn muscle spasms. - Continue heat, ice prn - Gentle stretching and massage - Letter given to excuse patient from work. Advised remain out of work until back pain improved, otherwise risk of re-injury high. - Follow up with Dr Neal as previously scheduled YEE SWEENEY MD 08/22/2009 6:21 PM Attestation statement: I discussed the patient with the resident/fellow at the time of the visit and agree with the findings and plan of care. GILBERTO KAUFMAN MD 08/22/2009 5:29 PM Attestation statement: I discussed the patient with the resident/fellow at the time of the visit and agree with the findings and the plan of care documented in the resident's/fellow's note. GILBERTO KAUFMAN MD 08/25/2009 1:58 PM documented in this encounter Plan of Treatment Not on file documented as of this encounter Visit Diagnoses Diagnosis Back pain- Primary Backache, unspecified documented in this encounter Discontinued Medications Medication Sig Discontinue Reason Start Date End Da te trazodone (DESYREL) 50 mg tablet Take 0.5 Tabs by mouth at bedtime. Take half to one tablet at bedtime Reorder 06/14/2009 08/22/2009 oxycodone-acetaminophen (PERCOCET) 5-325 mg per tabletIndications:Back pain Take 1 Tab by mouth every 4 hours as needed for Pain. 1 tab q 4-6 hr prn Reorder 08/15/2009 08/22/2009 cyclobenzaprine (FLEXERIL) 10 mg tablet Take 1 Tab by mouth every 8 hours as needed for Muscle Spasms. Reorder 08/11/2009 08/22/2009 documented as of this encounter Historical Medications * This list may reflect changes made after this encounter. Medication Sig Dispensed Refills Start Date End Date spironolactone (ALDACTONE) 25 mg tablet Take 1 Tab by mouth 2 times daily. 09/28/2009 added in this encounter Care Teams Manufacturers Agent Relationship Specialty Start Date End Date Tamara Neal MD [address] [place] [phone] PCP - General 09/13/08 03/18/13 documented as of this encounter
--- OUTSIDE RECORDS SUMMARY | 2024-02-14 15:29 | XMS_ITS | Encounter Summary ---
Author Organization [facility] Address [address] [place] [address] Care Team Providers Care Burlap Man Name Role Phone Unavailable Primary Care Provider Unavailabl e Encounter Details Date Type Department Care Team (Late st Contact Info) Description 09/16/2007 15:54 EDT Hospital Encounter [address] [address] Charity Onofre MD [address] [place] [address], [address] [place] [phone] Discharge Disposition: Auto Discharge Social History Tobacco [...]
--- OUTSIDE RECORDS SUMMARY | 2024-02-14 15:29 | XMS_ITS | Encounter Summary ---
Author Organization [facility] Address [address] [place] [address] Care Team Providers Care Extrusion Press Adjuster Name Role Phone Unavailable Primary Care Provider Unavailabl e Encounter Details Date Type Department Care Team (Late st Contact Info) Description 07/19/2007 19:58 EDT Hospital Encounter [facility] [address] [place] [address] Haim Méndez MD [address] [facility], [address] [place] [phone] Discharge Disposition: Home or Self Care Social [...] Date/Time Associated Diagnosis Comments GLUCOSE, GLUCOMETER Routine 07/19/2007 2 2:19 EDT COMPLETE BLOOD COUNT AND DIFFERENTIAL Routine 07/19/2007 21:20 EDT C REACTIVE PROTEIN Routine 07/19/2007 21 :20 EDT GROUP B STREP PCR Routine 07/19/2007 20: 45 EDT N. GONORRHOEAE AMPLIFIED PROBE Routine 07/19/2007 20:45 EDT FIBRONECTIN Routine 07/19/2007 20: 45 EDT ZZCHLAMYDIA TRACHOMATIS AMPLIFIED PROBE Routine 07/19/2007 20:45 EDT BACTERIAL CULTURE, URINE Routine 07/19/2007 19:59 EDT documented in this encounter Results * GLUCOSE, GLUCOMETER (07/19/2007 22:19 EDT) Glucose, Fingerstick 100 70 - 100 mg/dl [facility] Certified Registered Nurse Practitioner ID [id number] Test Performed by Nursing Services [facility] 07/19/2007 22:1 9 EDT 07/20/2007 5:27 EDT Haim Méndez MD CHEMISTRY & BLOO D GAS ORDERABLES Performing Organization Address [facility] de Phone Number [facility] [address] [place] [address] * C-REACTIVE PROTEIN (07/19/2007 21:20 EDT) Pathologist [facility] C-Reactive Protein Marked hemolysis Specimen unsuitable for analysis. Repeat Requested Credit Issued <1.0 mg/dl [facility] 07/19/2007 21:2 0 EDT 07/19/2007 21:45 EDT Haim Méndez MD CHEMISTRY & BLOO D GAS ORDERABLES Performing Organization Address [facility] de Phone Number [facility] [address] [place] [address] * (ABNORMAL) HEMAGRAM AND DIFFERENTIAL (07/19/2007 21:20 EDT) WBC 11.61 4.0 - 12.4 K/cmm [facility] RBC 3.46(L) 3.86 - 5.04 M/cmm [facility] Hemoglobin 11.2(L) 11.6 - 15.2 gm/dl [facility] HCT 31.6(L) 34.9 - 44.4 % [facility] MCV 91 81 - 98 fl [facility] MCH 32.4 26.7 - 33.3 pg [facility] MCHC 35.4 32.1 - 35.9 gm/dl [facility] PLT 307 141 - 320 K/cmm [facility] RDW-CV 14.1 11.7 - 14.6 % [facility] % Neutrophils 65.0 45.5 - 79.7 % [facility] % Lymphocytes 25.7 15.0 - 46.8 % [facility] % Monocytes 6.7 1.8 - 12.0 % [facility] % Eosinophils 2.1 0.6 - 6.9 % [facility] % Basophils 0.5 0.2 - 1.4 % [facility] ABS Neutrophils 7.55 2.20 - 8.85 K/cmm [facility] ABS Lymphs 2.98 1.09 - 3.30 K/cmm [facility] ABS Monocytes 0.77 0.1 - 0.8 K/cmm [facility] ABS Eosinophils 0.24 0.03 - 0.61 K/cmm [facility] ABS Basophils 0.06 0.01 - 0.11 K/cmm [facility] Type of Diff: Automated [facility] 07/19/2007 21:2 0 EDT 07/19/2007 21:45 EDT Haim Méndez MD PACKAGES & DNA P ROBE ORDERABLES Performing Organization Address [facility] Co de Phone Number [facility] [address] [place] [address] * FIBRONECTIN (07/19/2007 20:45 EDT) Fibronectin Neg [facility] Appearance, swab CLOUDY AND COLORLESS [facility] 07/19/2007 20:4 5 EDT 07/19/2007 20:58 EDT Haim Méndez MD CHEMISTRY & BLOO D GAS ORDERABLES Performing Organization Address [facility] Co de Phone Number [facility] [address] [place] [address] * GROUP B STREPTOCOCCUS MOLECULAR DETECTION (07/19/2007 20:45 EDT) Specimen Description Vaginal and Rectal [facility] Result No Group B beta streptococcal DNA detected by PCR. [facility] Report Status Final [id number] [facility] 07/19/2007 20:4 5 EDT 07/19/2007 21:14 EDT Haim Méndez MD MICROBIOLOGY - G ENERAL ORDERABLES Performing Organization Address [facility] Co de Phone Number [facility] [address] [place] [address] * N. GONORRHOEAE AMPLIFIED PROBE (07/19/2007 20:45 EDT) Result No Neisseria gonorrhoeae DNA detected by software sales mediated amplification. [facility] Report Status Final [id number] [facility] Specimen Description Cervix [facility] 07/19/2007 20:4 5 EDT 07/19/2007 21:14 EDT Haim Méndez MD MICROBIOLOGY - G ENERAL ORDERABLES Performing Organization Address [facility] de Phone Number [facility] [address] [place] [address] * CHLAMYDIA TRACHOMATIS AMPLIFIED PROBE (07/19/2007 20:45 EDT) Specimen Description Cervix [facility] Result No Chlamydia trachomatis DNA detected by software sales mediated amplification. [facility] Report Status Final [id number] [facility] 07/19/2007 20:4 5 EDT 07/19/2007 21:14 EDT Haim Méndez MD MICROBIOLOGY - G ENERAL ORDERABLES Performing Organization Address [facility] Co de Phone Number [facility] [address] [place] [address] * BACTERIAL CULTURE, URINE (07/19/2007 19:59 EDT) Specimen Description Urine [facility] Result 10,000 to 100,000 CFU/ml GARDNERELLA VAGINALIS, presumptive identification. Less than 10,000 CFU/ml Mixed gram positive growth [facility] Report Status Final [id number] [facility] 07/19/2007 19:5 9 EDT 07/19/2007 21:04 EDT Haim Méndez MD MICROBIOLOGY - G ENERAL ORDERABLES Performing Organization Address City/State/[facility] Co de Phone Number [facility] [address] [place] [address] documented in this encounter Visit Diagnoses Not on filedocumented in this encounter
--- OUTSIDE RECORDS SUMMARY | 2024-02-14 15:29 | XMS_ITS | Encounter Summary ---
Author Organization [facility] Address [address] [place] [address] Care Team Providers Care Body Repairer Name Role Phone Unavailable Primary Care Provider Unavailabl e Encounter Details Date Type Department Care Team (Late st Contact Info) Description 08/18/2007 14:55 EDT Hospital Encounter [facility] [address] [place] [address] Cameron Hemphill MD [address] [place] [address] Khalida Quiñones MD Discharge Disposition: Auto Discharge [...] Procedure Name Priority Date/Time Associated Diagnosis Comments CORRECTION BIOPHYSICAL PROFILE 08/18/2007 15:15 EDT documented in this encounter Results * CORRECTION BIOPHYSICAL PROFILE (08/18/2007 15:15 EDT) Anatomical Region Laterality Modality Other 08/18/2007 15:1 5 EDT Narrative 10/10/2008 13:51 EDT BPP,GROWTH/DIABETES Please refer to the separate [facility] report. ??Contact Maternal Medicine. Procedure Note Carroll Doan MD - 10/10/2008 BPP,GROWTH/DIABETES Please refer to the separate [facility] report. Contact Maternal Medicine. Cameron Hemphill MD [facility] [place] ORDERABLE S documented in this encounter Visit Diagnoses Not on filedocumented in this encounter
--- OUTSIDE RECORDS SUMMARY | 2024-02-14 15:29 | XMS_ITS | Encounter Summary ---
Author Organization [facility] Address [address] [place] [address] Care Team Providers Care Business Segment Manager Name Role Phone Tamara Neal MD Primary Care Provider + Encounter Details Date Type Department Care Team (Latest Contact Info) Description 10/10/2009 7:39 EDT - 10/10/2009 23:59 EDT Hospital Encounter [facility] [address] [place] [id number] Tamara Neal MD [address] [place] [phone] Gallstone; Diabetes ([facility]-H[facility]) ([facility]) Discharge Disposition: Home or Self Care Social [...] hr prn 40 Tab 0 10/04/2009 10/19/2009 spironolactone (ALDACTONE) 25 mg tablet Take 1 [...] Associated Diagnosis Comments COMPLETE BLOOD COUNT Routine 10/10/2009 7:41 EDT Gallstone HEMOGLOBIN A1C Routine 10/10/2009 7:41 EDT Diabetes ([facility]-HCC) ([facility]) COMPREHENSIVE METABOLIC PANEL (CMP) Routine 10/10/2009 7:41 EDT Gallstone documented in this encounter Results * (ABNORMAL) HEMAGRAM (10/10/2009 7:41 EDT) WBC 10.50 4.0 - 12.4 K/cmm [facility] RBC 4.63 3.86 - 5.04 M/cmm [facility] Hemoglobin 14.6 11.6 - 15.2 gm/dl [facility] HCT 40.4 34.9 - 44.4 % [facility] MCV 87 81 - 98 fl [facility] MCH 31.5 26.7 - 33.3 pg [facility] MCHC 36.1(H) 32.1 - 35.9 gm/dl [facility] PLT 252 141 - 320 K/cmm [facility] RDW-CV 10.4(L) 11.7 - 14.6 % [facility] Comment:Performed at [facility], [place], [place] Blood specimen (specimen) 10/10/2009 7:41 EDT 10/10/2009 7:43 EDT Tamara Neal MD HEMATOLOGY & PF4 ORDERABLES Performing Organization Address [facility] de Phone Number [facility] [address] [place] [address] * HEMOGLOBIN A1C (10/10/2009 7:41 EDT) Hemoglobin [...] treatment. Est Avg Glucose 217 mg/dl [facility] Comment: eAG represents the A1c result expressed as average glucose in mg/dl. Blood specimen (specimen) 10/10/2009 7:41 EDT 10/10/2009 7:43 EDT Tamara Neal MD CHEMISTRY & BLOO D GAS ORDERABLES Performing Organization Address [facility] Co de Phone Number [facility] [address] [place] [address] * (ABNORMAL) COMPREHENSIVE METABOLIC PANEL (10/10/2009 7:41 EDT) Potassium 4.1 3.5 - 5.0 mEq/L [facility] Sodium 139 136 - 145 mEq/L [facility] Chloride 100 96 - 110 mEq/L [facility] CO2 27 24 - 32 mEq/L [facility] Total Alkaline Phosphatase 95 38 - 126 U/L [facility] Bilirubin, Total 0.7 0.2 - 1.3 mg/dl [facility] AST 45 15 - 46 U/L [facility] ALT 66(H) 9 - 52 U/L [facility] Albumin 4.9 3.4 - 4.9 g/dl [facility] Total Protein 7.6 6.5 - 8.3 g/dl [facility] Creatinine 0.69(L) 0.7 - 1.5 mg/dl [facility] GFR, Calculated >60 ml/min/1. 73m2 [facility] BUN 13 10 - 26 mg/dl [facility] Calcium 10.5 8.5 - 10.5 mg/dl [facility] Calculated Calcium 10.0 8.5 - 10.5 mg/dl [facility] Glucose, Serum 258(H) 70 - 100 mg/dl [facility] Fasting? Yes Performed at [facility] Blood specimen (specimen) 10/10/2009 7:41 EDT 10/10/2009 7:43 EDT Tamara Neal MD CHEMISTRY & BLOO D GAS ORDERABLES [facility] [address] [place] [address] documented in this encounter Visit Diagnoses Diagnosis Gallstone Calculus of gallbladder without mention of cholecystitis or obstruction Diabetes ([facility]) Type II or unspecified type diabetes mellitus without mention of complication, not stated as uncontrolled documented in this encounter Care Teams Business Segment Manager Relationship Specialty Start Date End Date Tamara Neal MD [address] [place] [address] [phone] PCP - General 09/13/08 03/18/13 documented as of this encounter
--- OUTSIDE RECORDS SUMMARY | 2024-02-14 15:29 | XMS_ITS | Encounter Summary ---
Author Organization [facility] Address [address] [place] [address] Care Team Providers Care Chemist Proteins Name Role Phone Tamara Neal MD Primary Care Provider + Reason for Visit * Reason Comments [facility] Encounter Details Date Type Department Care Team (Late st Contact Info) Description 08/15/2009 15:45 EDT Office Visit [facility] Family Medicine [address] [address] Haim Angulo MD Back pain (Primary Dx) Social History Tobacco [...] Sign Reading Time Taken Comments Blood Pressure 124/68 08/15/2009 1549 EDT Pulse 84 08/15/2009 1549 EDT Temperature - - Respiratory Rate - - Oxygen Saturation - - Inhaled Oxygen Concentration - - Weight - - Height - - Body Mass Index - - documented in this encounter Ordered Prescriptions Prescription Sig Dispensed Refills Start Date End Da te oxycodone-acetaminophen (PERCOCET) 5-325 mg per tabletIndications:Back pain Take 1 Tab by mouth every 4 hours as needed for Pain. 1 tab q 4-6 hr prn 25 Tab 0 08/15/2009 08/22/2009 predniSONE (DELTASONE) 20 mg tabletIndications:Back pain Take 1 Tab by mouth 2 times daily. 14 Tab 0 08/15/2009 09/06/2009 documented in this encounter Progress Notes * Haim Angulo MD - 08/15/2009 1718 EDT Subjective: Patient ID: Guzman Jean is an 34 y.o. female. Chief Complaint: HPI Comments: Seen for acute low back pain with lower extremity radiation. Seen at [facility] yesterday but records not available for review. Back Pain The history is provided by the patient. This is a new problem. The current episode started yesterday. The problem occurs daily. The problem has been gradually worsening. The pain is present in the lumbar spine. The pain quality is described as shooting and aching. The pain radiates to the left thigh and right thigh. The pain is at a severity of 8/10. The pain is severe. The symptoms are worsened by bending, twisting and position. The pain is same all the time. Associated symptoms include bladder incontinence (one episode only), leg pain (bilateral) and weakness (one episode involving left leg). Pertinent negatives include no chest pain, no fever, no numbness, no weight loss, no headaches, no abdominal pain, no abdominal swelling, no bowel incontinence, no perianal numbness, no dysuria, nopelvic pain, no paresthesias, no paresis and no tingling. She has tried bed rest, ice, analgesic and muscle relaxant for the symptoms. 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 History reviewed. No pertinent past medical history. History reviewed. No pertinent family history. Current outpatient prescriptions Medication Sig Dispense Refill [...] by mouth as needed for Pain. ??? predniSONE (DELTASONE) 20 mg tablet Take 1 Tab by mouth 2 times daily. 14 Tab 0 No Known Allergies History Social [...] No narrative on file Review of Systems Constitutional: Negative for fever, weight loss and malaise/fatigue. HENT: Positive for neck pain (seen last week by Dr. Kaufman). Negative for congestion. Respiratory: Negative for cough. Cardiovascular: Negative for chest pain. Gastrointestinal: Negative for abdominal pain. Genitourinary: Positive for bladder incontinence (one episode only). Negative for dysuria, urgency,frequency and pelvic pain. Musculoskeletal: Positive for back pain. Neurological: Positive for weakness (one episode involving left leg). Negative for tingling, sensory change, focal weakness, numbness and headaches. Psychiatric/Behavioral: Negative for depression. The patient is not nervous/anxious. Objective: Physical Exam Constitutional: She appears well-developed and well-nourished. She appears not diaphoretic. She appears distressed (move sgingerly in the exam room but is able to independently get onto exam table and lie down/sit back up). HENT: Head: Normocephalic and atraumatic. Eyes: Pupils are equal, round, and reactive to light. Cardiovascular: Normal rate and regular rhythm. Pulmonary/Chest: Effort normal and breath sounds normal. Musculoskeletal: Lumbar back: She exhibits decreased range of motion, tenderness (poorly localized), pain and spasm.She exhibits no bony tenderness, no swelling, no deformity and no laceration. Neurological: She is alert. She has normal strength. No cranial nerve deficit or sensory deficit. Reflex Scores: Patellar reflexes are 3+ on the right side and 3+ on the left side. Achilles reflexes are 1+ on the right side and 1+ on the left side. SLR positive bilaterally for back pain at 30 degrees. SLR did not reproduce her leg pain Skin: She is not diaphoretic. BP 124/68 Pulse 84 Assessment: Encounter Diagnoses Code Name Primary? Qualifier ??? 724.5E Back pain Yes Plan: PREDNISONE 20 MG TAB, OXYCODONE-ACETAMINOPHEN 5 MG-325 MG TAB Plan: Acute onset lumbar pain with radiation to legs. Neurologically intact at this time but history suggests possible disk herniation. Will treat with a pulse of prednisone and re-evaluate in 1 week. Hopefully records of exam and imaging from [facility] will be available at that visit. documented in this encounter Plan of [...] tab q 4-6 hr prn Reorder 08/15/2009 documented as of this encounter Historical Medications * This list may reflect changes made after this encounter. Medication Sig Dispensed Refills Start Date End Date oxycodone-acetaminophen (PERCOCET) 5-325 mg per tablet Take 1 Tab by mouth every 4 hours as needed for Pain. 1 tab q 4-6 hr prn 08/15/2009 added in this encounter Care Teams Chemist Proteins Relationship Specialty Start Date End Date Tamara Neal MD [address] [place] [phone] PCP - General 09/13/08 03/18/13 documented as of this encounter
--- OUTSIDE RECORDS SUMMARY | 2024-02-14 15:29 | XMS_ITS | Encounter Summary ---
Author Organization [facility] Address [address] [place] [address] Care Team Providers Care Research Professor Name Role Phone Tamara Neal MD Primary Care Provider + Stephanie Garces MD Primary Care Provider [phone] Encounter Details Date Type Department Care Team (Late st Contact Info) Description 07/19/2007 Results Only [facility] - [address] [address] Elke Araujo MD [address] [phone] Social History Tobacco Use Types Packs/Day Years Used Date Smoking Tobacco: Never Assessed Sex and Gender Information Value Date Recorded Sex Assigned at Not on file Gender Identity Not on file Sexual Orientation Not on file documented as of this encounter Plan of Treatment Not on file documented as of this encounter Procedures Procedure Name Priority Date/Time Associated Diagnosis Comments URINE CULTURE IF POSITIVE Routine 07/19/2007 19:59 EDT URINE CHEMICAL (DIP) & SEDIMENT (MICRO) WITHOUT REFLEX TO CULTURE Routine 07/19/2007 19:59 EDT documented in this encounter Results * (ABNORMAL) UA WITH MICROSCOPIC (07/19/2007 19:59 EDT) Color, UA Yellow [facility] Clarity, UA Clear [facility] Glucose, UA Norm NORM [facility] Bilirubin, UA Neg NEG [facility] Ketones, UA Trace(A) NEG [facility] Specific [place], Urine 1.015 1.005 - 1.02 [facility] Blood, UA Neg NEG [facility] pH, UA 7.0 5.0 - 9.0 [facility] Protein, UA Neg NEG [facility] Urobilinogen, UA Norm NORM mg/dL [facility] Nitrite, UA Neg NEG [facility] Leuk Esterase Neg NEG [facility] WBC, UA less than 1 0 - 5 /HPF [facility] RBC, UA None seen 0 - 5 /HPF [facility] Squam Epithel, UA Frequent(A) NS /HPF [facility] Renal Epithel, UA None seen NS /HPF [facility] Bacteria, UA None seen NS /HPF [facility] Crystals, UA None seen /HPF [facility] Hyaline Casts, UA None seen /LPF [facility] UA Comment Microscopic results are unreliable on urines unrefrig >2hrs or refrig >8hrs. [facility] Mucus, UA Present [facility] 07/19/2007 19:5 9 EDT 07/19/2007 20:00 EDT Elke Araujo MD URINALYSIS ORDERABLE S Performing Organization Address [facility] de Phone Number [facility] [address] [place] [address] * CULTURE IF UA POSITIVE (07/19/2007 19:59 EDT) Culture if Indicated Culture indicated by urinalysis results. [facility] 07/19/2007 19:5 9 EDT 07/19/2007 20:00 EDT Elke Araujo MD MICROBIOLOGY - GENER AL ORDERABLES Performing Organization Address [facility] Co de Phone Number [facility] [address] [place] [address] documented in this encounter Visit Diagnoses Not on filedocumented in this encounter Care Teams Research Professor Relationship Specialty Start Date End Date Tamara Neal MD [address] [place] [phone] PCP - General 09/13/08 03/18/13 Stephanie Garces MD [address] [place] [phone] PCP - General 08/19/08 09/12/08 documented as of this encounter
--- OUTSIDE RECORDS SUMMARY | 2024-02-14 15:29 | XMS_ITS | Encounter Summary ---
Author Organization [facility] Address [address] [place] [address] Care Team Providers Care Inspector Government Property Name Role Phone Unavailable Primary Care Provider Unavailabl e Encounter Details Date Type Department Care Team (Late st Contact Info) Description 01/27/2008 9:56 EDT Hospital Encounter [facility] [address] [place] [address] Haim Angulo MD Social History Tobacco Use Types Packs/Day [...] Component Type 2 diabetes mellitus ([facility]) 8.7(07/07/2015 5:05 EST) Annmarie Lopez documented as of this encounter Procedures Procedure Name Priority Date/Time Associated Diagnosis Comments BASIC METABOLIC PANEL (BMP) Routine 01/27/2008 10:09 EDT documented in this encounter Results * BASIC METABOLIC PANEL (01/27/2008 10:09 EDT) Sodium Marked hemolysisSpecimen unsuitable for analysis.Repeat Requested 136 - 145 mEq/L [facility] Potassium Marked hemolysisSpecimen unsuitable for analysis.Repeat Requested 3.5 - 5.0 mEq/L [facility] Chloride Marked hemolysisSpecimen unsuitable for analysis.Repeat Requested 96 - 110 mEq/L [facility] CO2 Marked hemolysisSpecimen unsuitable for analysis.Repeat Requested 24 - 32 mEq/L [facility] BUN Marked hemolysisSpecimen unsuitable for analysis.Repeat Requested 10 - 26 mg/dl [facility] Creatinine Marked hemolysisSpecimen unsuitable for analysis.Repeat Requested 0.7 - 1.5 mg/dl [facility] GFR, Calculated Marked hemolysisSpecimen unsuitable for analysis.Repeat Requested ml/min/1 .73m2 [facility] Calcium Marked hemolysisSpecimen unsuitable for analysis.Repeat Requested 8.5 - 10.5 mg/dl [facility] Calculated Calcium Marked hemolysisSpecimen unsuitable for analysis.Repeat Requested 8.5 - 10.5 mg/dl [facility] Glucose, Serum Marked hemolysisSpecimen unsuitable for analysis.Repeat Requested 70 - 100 mg/dl [facility] Fasting? Yes ??Corrected on 01/26 AT 1303: Previously reported as No [facility] 01/27/2008 10:0 9 EDT 01/27/2008 10:10 EDT Haim Angulo MD CHEMISTRY & BLOOD GA S ORDERABLES [facility] [address] [place] [address] documented in this encounter Visit Diagnoses Not on filedocumented in this encounter Additional Health Concerns Infection Onset Date Last Indicated Resolved Time MRSA Comment:IP note: risk factors - DM, obesity Pos sinus 06/30/17 M Chito 07/01/17 07/01/2017 07/01/2017 documented as of this encounter
--- OUTSIDE RECORDS SUMMARY | 2024-02-14 15:29 | XMS_ITS | Encounter Summary ---
Author Organization [facility] Address [address] [place] [address] Care Team Providers Care Administrative Law Judge Name Role Phone Unavailable Primary Care Provider Unavailabl e Encounter Details Date Type Department Care Team (Latest Contact Info) Description 09/04/2007 9:00 EDT - 09/04/2007 11:59 EDT Hospital Encounter [facility] [address] [place] [address] Khalida Quiñones MD Discharge Disposition: Home or [...] Procedure Name Priority Date/Time Associated Diagnosis Comments URINALYSIS WITH MICROSCOPIC IF POSITIVE Routine 09/04/2007 10:31 EDT UA REFLEX Routine 09/04/2007 10:31 EDT URINE CULTURE IF POSITIVE Routine 09/04/2007 10:31 EDT GLUCOSE, GLUCOMETER Routine 09/04/2007 9 :31 EDT documented in this encounter Results * UA REFLEX (09/04/2007 10:31 EDT) UA Billing Microscopic not indicated. [facility] 09/04/2007 10:3 1 EDT 09/04/2007 10:36 EDT Khalida Quiñones MD URINALYSIS ORDERABLE S Performing Organization Address [facility] de Phone Number [facility] [address] [place] [address] * URINALYSIS (09/04/2007 10:31 EDT) Color, UA Yellow [facility] Clarity, UA Clear [facility] Glucose, UA Norm NORM [facility] Bilirubin, UA Neg NEG [facility] Ketones, UA Neg NEG [facility] Specific [place], Urine 1.015 1.005 - 1.02 [facility] Blood, UA Neg NEG [facility] pH, UA 6.5 5.0 - 9.0 [facility] Protein, UA Neg NEG [facility] Urobilinogen, UA Norm NORM mg/dL [facility] Nitrite, UA Neg NEG [facility] Leuk Esterase Neg NEG [facility] 09/04/2007 10:3 1 EDT 09/04/2007 10:36 EDT Khalida Quiñones MD URINALYSIS ORDERABLE S Performing Organization Address [facility] Phone Number [facility] [address] [place] [address] * CULTURE IF UA POSITIVE (09/04/2007 10:31 EDT) Culture if Indicated Culture not indicated by urinalysis results. [facility] 09/04/2007 10:3 1 EDT 09/04/2007 10:36 EDT Khalida Quiñones MD MICROBIOLOGY - GENER AL ORDERABLES Performing Organization Address [facility] de Phone Number [facility] [address] [place] [address] * GLUCOSE, GLUCOMETER (09/04/2007 9:31 EDT) Glucose, Fingerstick 91 70 - 100 mg/dl [facility] Insurance Specialist [place] [id number] Test Performed by Nursing Services [facility] 09/04/2007 9:31 EDT 09/06/2007 0:07 EDT Khalida Quiñones MD CHEMISTRY & BLOOD GA S ORDERABLES Performing Organization Address City/State/[facility] Co de Phone Number [facility] [address] [place] [address] documented in this encounter Visit Diagnoses Not on filedocumented in this encounter
--- OUTSIDE RECORDS SUMMARY | 2024-02-14 15:29 | XMS_ITS | Encounter Summary ---
Author Organization [facility] Address [address] [place] [address] Care Team Providers Care Operations Expert Name Role Phone Unavailable Primary Care Provider Unavailabl e Encounter Details Date Type Department Care Team (Late st Contact Info) Description 08/25/2007 13:51 EDT Hospital Encounter [facility] [address] [place] [address] Cameron Hemphill MD [address] [place] [address] Social History Tobacco Use Types Packs/Day Years [...] Component Type 2 diabetes mellitus ([facility]-CMS) 8.7(07/07/2015 5:05 EST) No Annmarie Vigil documented as of this encounter Procedures Procedure Name Priority Date/Time Associated Diagnosis Comments [facility] BIOPHYSICAL PROFILE 08/25/2007 17:36 EDT documented in this encounter Results * [facility] BIOPHYSICAL PROFILE (08/25/2007 17:36 EDT) Anatomical Region Laterality Modality Other 08/25/2007 17:3 6 EDT Narrative 10/10/2008 13:51 EDT BPP,GROWTH/DIABETES Please refer to the separate [facility] report. ??Contact Maternal Medicine. Procedure Note Charity Onofre MD - 10/10/2008 BPP,GROWTH/DIABETES Please refer to the separate [facility] report. Contact Maternal Medicine. Cameron Hemphill MD IMG [facility] ORDERABLE S documented in this encounter Visit Diagnoses Not on filedocumented in this encounter Additional Health Concerns Infection Onset Date Last Indicated Resolved Time MRSA Comment:IP note: risk factors - DM, obesity Pos sinus 06/30/17 M Chito 07/01/17 07/01/2017 07/01/2017 documented as of this encounter
--- OUTSIDE RECORDS SUMMARY | 2024-02-14 15:29 | XMS_ITS | Encounter Summary ---
Author Organization [facility] Address [address] [place] [address] Care Team Providers Care Ocean Clam Boat Captain Name Role Phone Tamara Neal MD Primary Care Provider + Reason for Visit * Reason Onset Date Comments Referral Request 09/14/2009 U/S Abdomen Encounter Details Date Type Department Care Team (Late st Contact Info) Description 09/14/2009 Orders Only [facility] Family Medicine [address] [address] Tamara Neal MD [address] [place] [phone] Lumbago (Primary Dx) Social History Tobacco Use [...] as of this encounter Progress Notes * Shanita Hudson - 09/14/2009 1246 EDT Please sign off for US Abdomen documented in this encounter Plan of Treatment Not on file documented as of this encounter Procedures Procedure Name Priority Date/Time Associated Diagnosis Comments RAD US ABDOMEN ONE ORGAN/QUADRANT 10/03/2009 8:41 EDT documented in this encounter Results * RAD US ABDOMEN ONE ORGAN/QUADRANT (10/03/2009 8:41 EDT) Anatomical Region Laterality Modality Other 10/03/2009 8:41 EDT 10/03/2009 9:27 EDT Narrative 10/03/2009 9:27 EDT Right upper quadrant ultrasound 10/03/2009 History: Possible gallstone seen on x-ray, right abdominal and low back pain Comparison: Lumbar spine x-ray 09/12/2009 There is a 2.2 x 1.6 x 1.7 cm mobile gallstone within the gallbladder. There is no gallbladder wall thickening and there is no biliary ductal dilatation, the common duct is normal measuring 3 mm. The pancreas was not well-seen but no definite solid or cystic lesion is seen in the pancreatic region. The liver is enlarged measuring 18.1 cm in length. There is diffuse fatty infiltration of the liver, no focal liver lesion is seen. The right kidney is sonographically normal and measures 12.5 cm in length. The upper aorta and IVC are within normal limits. No free fluid is seen in the right upper quadrant of the abdomen. Impression: 1. Cholelithiasis. 2. Enlarged, fatty liver 3. Poor visualization of the pancreas Procedure Note 10/03/2009 Right upper quadrant ultrasound 10/03/2009 History: Possible gallstone seen on x-ray, right abdominal and low back pain Comparison: Lumbar spine x-ray 09/12/2009 There is a 2.2 x 1.6 x 1.7 cm mobile gallstone within the gallbladder. There is no gallbladder wall thickening and there is no biliary ductal dilatation, the common duct is normal measuring 3 mm. The pancreas was not well-seen but no definite solid or cystic lesion is seen in the pancreatic region. The liver is enlarged measuring 18.1 cm in length. There is diffuse fatty infiltration of the liver, no focal liver lesion is seen. The right kidney is sonographically normal and measures 12.5 cm in length. The upper aorta and IVC are within normal limits. No free fluid is seen in the right upper quadrant of the abdomen. Impression: 1. Cholelithiasis. 2. Enlarged, fatty liver 3. Poor visualization of the pancreas Tamara Neal MD IMG US ORDERABLE S documented in this encounter Visit Diagnoses Diagnosis Lumbago- Primary documented in this encounter Care Teams Ocean Clam Boat Captain Relationship Specialty Start Date End Date Tamara Neal MD [address] [place] [phone] PCP - General 09/13/08 03/18/13 documented as of this encounter
--- OUTSIDE RECORDS SUMMARY | 2024-02-14 15:29 | XMS_ITS | Encounter Summary ---
Author Organization [facility] Address [address] [place] [address] Care Team Providers Care Bath Mixer Name Role Phone Tamara Neal MD Primary Care Provider + Reason for Visit * Reason Comments Back Pain follow up on low carmelo k pain, about the same Nausea feeling nauseous in the AM's for about a week, vomited on Sat and on Mon, also feeling very tired, would like test done Encounter Details Date Type Department Care Team (Late st Contact Info) Description 09/06/2009 16:45 EDT Office Visit [facility] Family Medicine - [address] [phone] Tamara Neal MD [address] [place] [phone] Contraceptive management (Primary Dx); Backpain; Nausea & vomiting; Back pain Social History Tobacco Use Types Packs/Day [...] Sign Reading Time Taken Comments Blood Pressure 119/76 09/06/2009 1643 EDT Pulse 68 09/06/2009 1643 EDT Temperature - - Respiratory Rate - - Oxygen Saturation - - Inhaled Oxygen Concentration - - Weight 98 kg (216 lb) 09/06/2009 1643 EDT with s hoes and clothes Height - - Body Mass Index - - documented in this encounter Ordered Prescriptions Prescription Sig Dispensed Refills Start Date End Da te cyclobenzaprine (FLEXERIL) 10 mg tabletIndications:Back pain Take 1 Tab by mouth every 8 hours as needed for Muscle Spasms. 30 Tab 1 09/06/2009 09/12/2009 oxycodone-acetaminophen (PERCOCET) 5-325 mg per tabletIndications:Back pain Take 1 Tab by mouth every 4 hours as needed for Pain. 1 tab q 4-6 hr prn 40 Tab 0 09/06/2009 09/12/2009 predniSONE (DELTASONE) 20 mg tablet Take by mouth. 60 mg for 3 days, 40 mg for 3 days 30 Tab 0 09/06/2009 10/04/2009 citalopram (CELEXA) 40 mg tablet Take 1 Tab by mouth daily. 30 Each 5 09/06/2009 08/01/2010 documented in this encounter Progress Notes * Tamara Neal MD - 09/06/2009 1846 EDT S: here to f/u LBP, Injury almost 3 weeks ago, lifting Zuleika (adult with Downs) out of chair. Intense pain, radiating into legs R>L, had 5 day burst Prednisone with some relief. STill using Flexeril which helps but as soon as runs outpain returns. ALso Percocet 2-3 times daily. Returned to work at [employer] rehab, painful No bladder/bowel incontinence. Reviewed recent clinic notes Also 2-3 days nausea and emesis in am, fatigue, no other symptoms of . Has Mirena IUD for 1 years, irreg menses. No dysuria or frequency. O: BP 119/76 Pulse 68 Wt 97.977 kg (216 lb) LMP 07/11/2009 Gen - A/P LBP - Prednisone taper, LS XR if no better after that (ordered) con't Flexeril and Percocet for now Consider PT although modalities with day care worker did not help before N/V/fatigue - UPT and urine dip neg in office today, consider labs such as lipase CMP if persists documented in this encounter Plan of Treatment Not on file documented as of this encounter Procedures Procedure Name Priority Date/Time Associated Diagnosis Comments L SPINE 2-3 VIEWS Routine 09/12/2009 8:04 EDT Backpain POCT TEST, VISUAL READ Routine 09/06/2009 17:17 EDT Nausea & vomiting POCT URINE DIPSTICK, CLINITEK Routine 09/06/2009 17:15 EDT Backpain Nausea & vomiting documented in this encounter Results * L SPINE 2-3 VIEWS (09/12/2009 8:04 EDT) Anatomical Region Laterality Modality Other 09/12/2009 8:04 EDT 09/12/2009 9:25 EDT Narrative 09/12/2009 9:25 EDT Lumbar spine 09/12/2009 History: Low back pain radiating into both lower extremities AP and lateral views were obtained. Alignment is normal. Vertebral body heights and disc spaces are maintained. Facet joints are normally aligned and neural foramina are patent. There is a rounded opacity in the right mid abdomen, this may reflect a solid or cystic right renal mass. Superior to this is a 2.4 cm rounded opacity, is unclear whether this is bowel or perhaps a gallstone. There is an IUD in the pelvis. Impression: 1. Normal appearance of the spine 2. Rounded soft tissue opacity in the right mid abdomen, this may involve the right kidney. Also noted on the frontal view is a rounded opacity superior to this which may represent a gallstone or other abnormality in the abdomen. Further evaluation with ultrasound would be helpful. Procedure Note 09/12/2009 Lumbar spine 09/12/2009 History: Low back pain radiating into both lower extremities AP and lateral views were obtained. Alignment is normal. Vertebral body heights and disc spaces are maintained. Facet joints are normally aligned and neural foramina are patent. There is a rounded opacity in the right mid abdomen, this may reflect a solid or cystic right renal mass. Superior to this is a 2.4 cm rounded opacity, is unclear whether this is bowel or perhaps a gallstone. There is an IUD in the pelvis. Impression: 1. Normal appearance of the spine 2. Rounded soft tissue opacity in the right mid abdomen, this may involve the right kidney. Also noted on the frontal view is a rounded opacity superior to this which may represent a gallstone or other abnormality in the abdomen. Further evaluation with ultrasound would be helpful. Tamara Neal MD IMG DIAGNOSTIC [facility] ORDERABLES * POCT URINE TEST (09/06/2009 17:17 EDT) Test, Urine, POC Negative Pending, Negative POINT OF CARE Control Line Present Yes POINT OF CARE Background Clear? Yes POINT OF CARE Urine specimen (specimen) 09/06/2009 17:17 EDT Tamara Neal MD POINT OF CARE TE ST ORDERABLES Performing Organization Address [facility]/ZIP Co de Phone Number POINT OF CARE * (ABNORMAL) POCT URINE DIPSTICK (09/06/2009 17:15 EDT) Color, UA Yellow POINT OF CARE Clarity, UA Clear POINT OF CARE Glucose, UA Negative Negative, Trace mg/dL POINT OF CARE Bilirubin, UA Negative Negative POINT OF CARE Ketones, UA Negative Negative mg/dL POINT OF CARE Spec Grav, UA <1.005(A) 1.010, 1.015, 1.020, 1.025 POINT OF CARE Blood, UA Negative Negative POINT OF CARE pH, UA 5.5 4.6 - 8.0 POINT OF CARE Protein, UA Negative Negative mg/dL POINT OF CARE Urobilinogen, UA 0.2 2.0 E.U./dL POINT OF CARE Nitrite, UA Negative Negative POINT OF CARE Leuk Esterase Negative Negative POINT OF CARE Comment Addendum 09/07/09 @ 11:14; Resulted 09/06 as normal. Spec. grav. <=1.005 which is an abnormal value now noted. /df POINT OF CARE Urine specimen (specimen) 09/06/2009 17:15 EDT Tamara Neal MD POINT OF CARE TE ST ORDERABLES POINT OF CARE documented in this encounter Visit Diagnoses Diagnosis Contraceptive management- Primary Unspecified contraceptive management Backpain Backache, unspecified Nausea & vomiting Nausea with vomiting Back pain Backache, unspecified documented in this encounter Discontinued Medications Medication Sig Discontinue Reason Start Date End Da te predniSONE (DELTASONE) 20 mg tabletIndications:Back pain Take 1 Tab by mouth 2 times daily. Therapy completed 08/15/2009 09/06/2009 citalopram (CELEXA) 20 mg tablet Take 2 Tabs by mouth daily. 06/14/2009 09/06/2009 oxycodone-acetaminophen (PERCOCET) 5-325 mg per tabletIndications:Back pain Take 1 Tab by mouth every 4 hours as needed for Pain. 1 tab q 4-6 hr prn Reorder 08/22/2009 09/06/2009 cyclobenzaprine (FLEXERIL) 10 mg tabletIndications:Back pain Take 1 Tab by mouth every 8 hours as needed for Muscle Spasms. Reorder 08/22/2009 09/06/2009 documented as of this encounter Historical Medications * This list may reflect changes made after this encounter. Medication Sig Dispensed Refills Start Date End Date levonorgestrel (MIRENA) 20 mcg/24 hr IUD 1 Each by Intrauterine route once. 08/26/2008 05/01/2013 added in this encounter Care Teams Bath Mixer Relationship Specialty Start Date End Date Tamara Neal MD [address] [place] [phone] PCP - General 09/13/08 03/18/13 documented as of this encounter
--- OUTSIDE RECORDS SUMMARY | 2024-02-14 15:29 | XMS_ITS | Encounter Summary ---
Author Organization [facility] Address [address] [place] [address] Care Team Providers Care Cv/Cvn Cv Tsc System Operator Name Role Phone Unavailable Primary Care Provider Unavailabl e Encounter Details Date Type Department Care Team (Late st Contact Info) Description 10/21/2007 13:06 EDT Hospital Encounter [address] [address] Charity Onofre MD [address] [place] [address], [address] [place] [phone] Discharge Disposition: Auto Discharge Social History Tobacco [...] Procedure Name Priority Date/Time Associated Diagnosis Comments HPV DETECTION, HIGH RISK TYPES Routine 10/21/2007 13:55 EDT documented in this encounter Results * HUMAN PAPILLOMA VIRUS DNA TEST (10/21/2007 13:55 EDT) Specimen Description Cervix, ThinPrep vial [facility] Result Negative for HPV types 16, 18, 31, 33, 35, 39, 45, 51, 52, 56, 58, 59, and 68. [facility] Report Status Final [id number] [facility] 10/21/2007 13:5 5 EDT 10/24/2007 8:27 EDT Charity Onofre MD MICROBIOLOGY - GENER AL ORDERABLES Performing Organization Address City/State/[facility] Co de Phone Number [facility] [address] [address] documented in this encounter Visit Diagnoses Not on filedocumented in this encounter
--- OUTSIDE RECORDS SUMMARY | 2024-02-14 15:29 | XMS_ITS | Encounter Summary ---
Author Organization [facility] Address [address] [place] [address] Care Team Providers Care Small Wind Energy Installer Name Role Phone Unavailable Primary Care Provider Unavailabl e Encounter Details Date Type Department Care Team (Latest Contact Info) Description 07/21/2007 14:49 EDT Hospital Encounter [address] [address] Khalida Quiñones MD Discharge Disposition: Auto Discharge [...]
--- OUTSIDE RECORDS SUMMARY | 2024-02-14 15:29 | XMS_ITS | Encounter Summary ---
Author Organization [facility] Address [address] [place] [address] Care Team Providers Care Radioisotope Technician Name Role Phone Tamara Neal MD Primary Care Provider + Reason for Visit * Reason Onset Date Comments Back Pain 09/09/2009 Encounter Details Date Type Department Care Team (Late st Contact Info) Description 09/09/2009 Telephone [facility] Family Medicine - [address] [phone] Tamara Neal MD [address] [place] [phone] Back Pain Social History Tobacco Use Types [...] Telephone Encounter - Tamara Neal MD - 09/12/2009 1329 EDT Blood sugars will be temporarily up from the Prednisone, she could try increasing to 1000 mg bid while on the steroids. Should discuss with Dr. Aly at appt today. XR was unrevealing for significant back issue (might have gallstone) * Telephone Encounter - Awilda Fang RN - 09/12/2009 0817 EDT Pt called. Has been having ongoing back pain for a month. Seen by Dr. Neal 09/06/09 who put her on prednisone taper. Pt currently on 40 mg daily. Back pain is getting worse. Pt rates pain at an 8. She is taking oxycodone 5 mg q4hrs and flexeril. Had back x-rays done this morning at [facility]. Appointment given with Dr. Aly 09/12/09 4:00. Pt states her blood sugars have also been high since being on prednisone. Reading was 495 on 09/10/09. Pt takes metformin 500 mg 3 daily. Does she need to do anything else while on the prednisone taper? * Telephone Encounter - Mikki Dorado - 09/09/2009 1218 EDT Patients mother called, her daughter Ryan is in a lot of pain, unable to walk well, Mom would likea call back from nurse to discuss her daughters situation. documented in this encounter Plan of Treatment Not on file documented as of this encounter Visit Diagnoses Not on filedocumented in this encounter Care Teams Radioisotope Technician Relationship Specialty Start Date End Date Tamara Neal MD [address] [place] [phone] PCP - General 09/13/08 03/18/13 documented as of this encounter
--- OUTSIDE RECORDS SUMMARY | 2024-02-14 15:29 | XMS_ITS | Encounter Summary ---
Author Organization [facility] Address [address] [place] [address] Care Team Providers Care Travel Agent Name Role Phone Unavailable Primary Care Provider Unavailabl e Encounter Details Date Type Department Care Team (Late st Contact Info) Description 08/11/2007 15:56 EDT [place] [facility] [address] [place] [address] Cameron Hemphill MD [address] [place] [address] Khalida Quiñones MD Discharge Disposition: Auto Discharge [...] Procedure Name Priority Date/Time Associated Diagnosis Comments NURSING HOME BIOPHYSICAL PROFILE 08/11/2007 17:52 EDT documented in this encounter Results * NURSING HOME BIOPHYSICAL PROFILE (08/11/2007 17:52 EDT) Anatomical Region Laterality Modality Other 08/11/2007 17:5 2 EDT Narrative 10/10/2008 13:51 EDT BPP,GROWTH/DIABETES Please refer to the separate [facility] report. ??Contact Maternal Medicine. Procedure Note Haim Méndez MD - 10/10/2008 BPP,GROWTH/DIABETES Please refer to the separate [facility] report. Contact Maternal Medicine. Cameron Hemphill MD IMG [facility] ORDERABLE S documented in this encounter Visit Diagnoses Not on filedocumented in this encounter
--- OUTSIDE RECORDS SUMMARY | 2024-02-14 15:29 | XMS_ITS | Encounter Summary ---
Author Organization [facility] Address [address] [place] [address] Care Team Providers Care Degree Clerk Name Role Phone Tamara Neal MD Primary Care Provider + Encounter Details Date Type Department Care Team (Latest Contact Info) Description 09/23/2009 13:15 EDT - 09/23/2009 23:59 EDT Hospital Encounter [facility] [place] [address] Nini Quach MD [address] [place] [phone] Discharge Disposition: Home or Self Care Social [...] Code Departure Means Destination Home or Self Alf documented in this encounter Plan of Treatment Not on file documented as of this encounter Visit Diagnoses Not on filedocumented in this encounter Care Teams Degree Clerk Relationship Specialty Start Date End Date Tamara Neal MD [address] [place] [phone] PCP - General 09/13/08 03/18/13 documented as of this encounter
--- OUTSIDE RECORDS SUMMARY | 2024-02-14 15:29 | XMS_ITS | Encounter Summary ---
Author Organization [facility] Address [address] [place] [address] Care Team Providers Care Baking Assistant Name Role Phone Unavailable Primary Care Provider Unavailabl e Encounter Details Date Type Department Care Team (Latest Contact Info) Description 01/29/2008 8:40 EDT - 01/29/2008 11:59 EDT Hospital En[facility] [address] [place] [address] Haim Angulo MD Unknown, Provider, Discharge Disposition: Auto Discharge Social History Tobacco [...] Diagnosis Comments BASIC METABOLIC PANEL (BMP) Routine 01/29/2008 8:55 EDT documented in this encounter Results * (ABNORMAL) BASIC METABOLIC PANEL (01/29/2008 8:55 EDT) Sodium 139 136 - 145 mEq/L [facility] Potassium 4.6 3.5 - 5.0 mEq/L [facility] Chloride 102 96 - 110 mEq/L [facility] CO2 22(L) 24 - 32 mEq/L [facility] BUN 15 10 - 26 mg/dl [facility] Creatinine 0.85 0.7 - 1.5 mg/dl [facility] GFR, Calculated >60 ml/min/1.7 3m2 [facility] Calcium 9.8 8.5 - 10.5 mg/dl [facility] Calculated Calcium 9.2 8.5 - 10.5 mg/dl [facility] Glucose, Serum 117(H) 70 - 100 mg/dl [facility] Fasting? Yes [facility] 01/29/2008 8:55 EDT 01/29/2008 8:56 EDT Liseth Vieyra MD CHEMISTRY & BLOOD GA S ORDERABLES [facility] [address] [place] [address] documented in this encounter Visit Diagnoses Not on filedocumented in this encounter
--- OUTSIDE RECORDS SUMMARY | 2024-02-14 15:29 | XMS_ITS | Encounter Summary ---
Author Organization [facility] Address [address] [place] [address] Care Team Providers Care Tire Changer Name Role Phone Unavailable Primary Care Provider Unavailabl e Encounter Details Date Type Department Care Team (Latest Contact Info) Description 07/11/2007 13:57 EDT Hospital Encounter [facility] [address] [place] [address] Elke Araujo MD [address] [phone] Discharge Disposition: Auto Discharge Social History Tobacco [...] Procedure Name Priority Date/Time Associated Diagnosis Comments [facility] FOLLOW-UP 07/11/2007 16:18 EDT documented in this encounter Results * [facility] FOLLOW-UP (07/11/2007 16:18 EDT) Anatomical Region Laterality Modality Other 07/11/2007 16:1 8 EDT Narrative 10/10/2008 12:26 EDT FOLLOW UP,[id number]/DIABETES Please refer to the separate [facility] report. ??Contact Maternal Medicine. Procedure Note Kimberley Roberson MD - 10/10/2008 FOLLOW UP,[id number]/DIABETES Please refer to the separate [facility] report. Contact Maternal Medicine. Elek Araujo MD G [facility] ORDERABLE S documented in this encounter Visit Diagnoses Not on filedocumented in this encounter
--- OUTSIDE RECORDS SUMMARY | 2024-02-14 15:29 | XMS_ITS | Encounter Summary ---
Author Organization [facility] Address [address] [place] [address] Care Team Providers Care C Web Developer Name Role Phone Tamara Neal MD Primary Care Provider + Stephanie Garces MD Primary Care Provider [phone] Encounter Details Date Type Department Care Team (Late st Contact Info) Description 10/21/2007 Results Only [facility] Obstetrics [facility] Midw[facility] - [facility] [address] [place], [place] [phone] Cindy Onofre MD [address] [facility], [address] [place] [phone] Social History Tobacco Use Types Packs/Day Years Used Date Smoking Tobacco: Never Assessed Sex and Gender Information Value Date Recorded Sex Assigned at Not on file Gender Identity Not on file Sexual Orientation Not on file documented as of this encounter Plan of Treatment Not on file documented as of this encounter Procedures Procedure Name Priority Date/Time Associated Diagnosis Comments CYTOPATHOLOGY Routine 10/21/2007 0:00 EDT documented in this encounter Results * CYTOPATHOLOGY (10/21/2007 0:00 EDT) Pathology Report: CYTOPATHOLOGY REPORT Reports generated via electronic interface contain original data; however they are lacking the format of the original report. Caution should be taken when reading/interpreti ng unformatted reports. Name: ? HILDA CROWLEY ? Accession #: ? [id number] : ? 1975 (Age: 32) ??F ?Collect Date: ? 10/21/2007 Location: ? [facility] ? Receive Date: ? 10/22/2007 Provider: ?CINDY ONOFRE MD Copy to: ? Specimen/Source: ?ThinPrep Pap Test, Cervix/Endocervix, processed on [employer] ThinPrep Imaging System, with manual evaluation Last Menstrual Period: ? Other: ? HPVDX - HPV testing requested regardless of diagnosis on current ThinPrep Pap test. ? SPECIMEN ADEQUACY ? Satisfactory for Evaluation - transformation zone component present GENERAL CATEGORIZATION ? Negative for Intraepithelial Lesion or Malignancy ? Document reviewed and electronically signed by: ? Stephanie Brown, SCT(ASCP) ? Report Date: ??10/23/2007 16:23 End of Report [facility] 10/21/2007 10/22/2007 Cindy Onofre MD PATHOLOGY ORDERABLES [facility] [address] [place] [address] documented in this encounter Visit Diagnoses Not on filedocumented in this encounter Care Teams C Web Developer Relationship Specialty Start Date End Date Tamara Neal MD [address] [place] [phone] PCP - General 09/13/08 03/18/13 Stephanie Garces MD [address] [place] [phone] PCP - General 08/19/08 09/12/08 documented as of this encounter
--- OUTSIDE RECORDS SUMMARY | 2024-02-14 15:30 | XMS_ITS | Encounter Summary ---
Author Organization [facility] Address [address] [place] [address] Care Team Providers Care Winding Inspector Name Role Phone Unavailable Primary Care Provider Unavailabl e Encounter Details Date Type Department Care Team (Late st Contact Info) Description 05/23/2007 15:22 EST Hospital Encounter [facility] [address] [place] [address] Elke Araujo MD [address] [phone] Social History Tobacco Use Types Packs/Day Years [...] 2 diabetes mellitus ([facility]) 8.7(07/07/2015 5:05 EST) No Annmarie Vigil documented as of this encounter Visit Diagnoses Not on filedocumented in this encounter Additional Health Concerns Infection Onset Date Last Indicated Resolved Time MRSA Comment:IP note: risk factors - DM, obesity Pos sinus 06/30/17 M [place] 07/01/17 07/01/2017 07/01/2017 documented as of this encounter
--- OUTSIDE RECORDS SUMMARY | 2024-02-14 15:30 | XMS_ITS | Encounter Summary ---
Author Organization [facility] Address [address] [place] [address] Care Team Providers Care Buffing Machine Operator Semiautomatic Name Role Phone Unavailable Primary Care Provider Unavailabl e Encounter Details Date Type Department Care Team (Late st Contact Info) Description 01/24/2007 9:57 EDT - 01/24/2007 11:59 EDT Hospital Encounter [facility] - [facility] [address] [place] [address] Charlee Bentley MD [address] [place] [phone] Discharge Disposition: Home or Self Care Social [...]
--- OUTSIDE RECORDS SUMMARY | 2024-02-14 15:30 | XMS_ITS | Encounter Summary ---
Author Organization [facility] Address [address] [place] [address] Care Team Providers Care Crime Scene Evidence Technician Name Role Phone Unavailable Primary Care Provider Unavailabl e Encounter Details Date Type Department Care Team (Latest Contact Info) Description 06/27/2007 14:23 EST Hospital Encounter [facility] [address] [place] [address] Elke Araujo MD [address] [phone] Discharge Disposition: Auto Discharge Social History Tobacco [...]
--- OUTSIDE RECORDS SUMMARY | 2024-02-14 15:30 | XMS_ITS | Encounter Summary ---
Author Organization [facility] Address [address] [place] [address] Care Team Providers Care County Adviser Name Role Phone Tamara Neal MD Primary Care Provider + Stephanie Garces MD Primary Care Provider +1- [phone] Encounter Details Date Type Department Care Team (Late st Contact Info) Description 03/25/2007 Results Only [facility] Obstetrics & Midwifery - [facility] [address], [place] [phone] Carroll Doan MD Social History Tobacco Use Types Packs/Day Years Used Date Smoking Tobacco: Never Assessed Sex and Gender Information Value Date Recorded Sex Assigned at Not on file Gender Identity Not on file Sexual Orientation Not on file documented as of this encounter Plan of Treatment Not on file documented as of this encounter Procedures Procedure Name Priority Date/Time Associated Diagnosis Comments CREATININE Routine 03/25/2007 14:05 EST URINE INFORMATION Routine 03/25/2007 5:3 0 EST CREATININE, URINE 24HR Routine 03/25/2007 5:30 EST PROTEIN, TOTAL, 24 HR, URINE Routine 03/25/2007 5:30 EST documented in this encounter Results * (ABNORMAL) CREATININE (03/25/2007 14:05 EST) Creatinine 0.60(L) 0.7 - 1.5 mg/dl [facility] GFR, Calculated >60 ml/min/1.7 3m2 [facility] 03/25/2007 14:0 5 EST 03/25/2007 14:07 EST Carroll Doan MD CHEMISTRY & BLOOD GA S ORDERABLES Performing Organization Address [facility] de Phone Number [facility] [address] [place] [address] * TOTAL PROTEIN, URINE 24H (03/25/2007 5:30 EST) Tot Prot,Ur Random 5 mg/dl [facility] Tot Prot,24h Calc. 73 <150 mg/24hr [facility] 03/25/2007 5:30 EST 03/25/2007 16:42 EST Carroll Doan MD URINALYSIS ORDERABLE S Performing Organization Address [facility] de Phone Number [facility] [address] [place] [address] * URINE INFORMATION (03/25/2007 5:30 EST) Period 24 hrs [facility] Specimen Volume 1450 mls [facility] 03/25/2007 5:30 EST 03/25/2007 16:42 EST Carroll Doan MD URINALYSIS ORDERABLE S Performing Organization Address [facility] de Phone Number [facility] [address] [place] [address] * CREATININE,URINE 24HR (03/25/2007 5:30 EST) Creatinine, Urn [place] 86.2 mg/dl [facility] Creatinine, 24H Ur Calc 1.2 1.0 - 2.0 g/24 hrs [facility] 03/25/2007 5:30 EST 03/25/2007 16:42 EST Carroll Doan MD URINALYSIS ORDERABLE S Performing Organization Address [facility] de Phone Number [facility] [address] [place] [address] documented in this encounter Visit Diagnoses Not on filedocumented in this encounter Care Teams County Adviser Relationship Specialty Start Date End Date Tamara Neal MD [address] [place] [phone] PCP - General 09/13/08 03/18/13 Stephanie Garces MD [address] [place] [phone] PCP - General 08/19/08 09/12/08 documented as of this encounter
--- OUTSIDE RECORDS SUMMARY | 2024-02-14 15:30 | XMS_ITS | Encounter Summary ---
Author Organization [facility] Address [address] [place] [address] Care Team Providers Care Superintendent Pressure Name Role Phone Unavailable Primary Care Provider Unavailabl e Encounter Details Date Type Department Care Team (Latest Contact Info) Description 06/13/2007 14:44 EST [facility] [facility] [address] [place] [address] Elke Araujo MD [address] [phone] Discharge Disposition: Auto Discharge Social [...] Procedure Name Priority Date/Time Associated Diagnosis Comments [facility] 06/13/2007 15:34 EST documented in this encounter Results * [facility] (06/13/2007 15:34 EST) Anatomical Region Laterality Modality Other 06/13/2007 15:3 4 EST Narrative 10/18/2008 6:06 EDT TYPE II DM Please refer to the separate [facility] report. ??Contact Maternal Medicine. Procedure Note Kimberley Roberson MD - 10/18/2008 TYPE II DM Please refer to the separate [facility] report. Contact Maternal Medicine. Elke Araujo MD [facility] ORDERABLE S documented in this encounter Visit Diagnoses Not on filedocumented in this encounter
--- OUTSIDE RECORDS SUMMARY | 2024-02-14 15:30 | XMS_ITS | Encounter Summary ---
Author Organization [facility] Address [address] [place] [address] Care Team Providers Care Icu Staff Nurse Name Role Phone Unavailable Primary Care Provider Unavailabl e Encounter Details Date Type Department Care Team (Latest Contact Info) Description 06/18/2007 8:31 EST - 06/18/2007 11:59 EST Hospital Encounter [facility] [address] [place] [address] Elke Araujo MD [address] [phone] Discharge Disposition: Auto Discharge Social History Tobacco [...]
--- OUTSIDE RECORDS SUMMARY | 2024-02-14 15:30 | XMS_ITS | Encounter Summary ---
Author Organization [facility] Address [address] [place] [address] Care Team Providers Care Casting Tester Name Role Phone Unavailable Primary Care Provider Unavailabl e Encounter Details Date Type Department Care Team (Latest Contact Info) Description 02/24/2007 12:06 EDT Hospital Encounter [facility] [address] [place] [address] Khalida Quiñones MD Discharge Disposition: Auto Discharge [...] Procedure Name Priority Date/Time Associated Diagnosis Comments [facility] VIABILITY 03/05/2007 16:50 EST documented in this encounter Results * [facility] VIABILITY (03/05/2007 16:50 EST) Anatomical Region Laterality Modality Other 03/05/2007 16:5 0 EST Narrative 10/18/2008 4:15 EDT ULTRASCREEN,08141/1ST TRIMESTER SCAN,63364/TYPE II DIABETES Please refer to the separate [facility] report. ??Contact Maternal Medicine. Procedure Note Haim Méndez MD - 10/18/2008 ULTRASCREEN,99710/1ST TRIMESTER SCAN,25920/TYPE II DIABETES Please refer to the separate [facility] report. Contact Maternal Medicine. Luis Archer MD [facility] ORDERAB LES documented in this encounter Visit Diagnoses Not on filedocumented in this encounter
--- OUTSIDE RECORDS SUMMARY | 2024-02-14 15:30 | XMS_ITS | Encounter Summary ---
Author Organization [facility] Address [address] [place] [address] Care Team Providers Care Budget And Policy Analyst Name Role Phone Tamara Neal MD Primary Care Provider + Stephanie Garces MD Primary Care Provider +1- [phone] Encounter Details Date Type Department Care Team (Late st Contact Info) Description 02/10/2007 Results Only [facility] [address] [place] [address] Luis Archer MD [address] [facility] [address] [place] [phone] Social History Tobacco Use Types Packs/Day Years Used Date Smoking Tobacco: Never Assessed Sex and Gender Information Value Date Recorded Sex Assigned at Not on file Gender Identity Not on file Sexual Orientation Not on file documented as of this encounter Plan of Treatment Not on file documented as of this encounter Procedures Procedure Name Priority Date/Time Associated Diagnosis Comments N. GONORRHOEAE AMPLIFIED PROBE Routine 02/10/2007 20:38 EDT ZZCHLAMYDIA TRACHOMATIS AMPLIFIED PROBE Routine 02/10/2007 20:38 EDT URINALYSIS WITH MICROSCOPIC IF POSITIVE Routine 02/10/2007 13:20 EDT UA REFLEX Routine 02/10/2007 13:20 EDT BACTERIAL CULTURE, URINE Routine 02/10/2007 13:20 EDT documented in this encounter Results * N. GONORRHOEAE AMPLIFIED PROBE (02/10/2007 20:38 EDT) Result No Neisseria gonorrhoeae DNA detected by tenant relations coordinator mediated amplification. [facility] Report Status Final [id number] [facility] Specimen Description Cervix [facility] 02/10/2007 20:3 8 EDT 02/10/2007 20:38 EDT Luis Archer MD MICROBIOLOGY - GEN ERAL ORDERABLES Performing Organization Address [facility] Co de Phone Number [facility] [address] [place] [address] * CHLAMYDIA TRACHOMATIS AMPLIFIED PROBE (02/10/2007 20:38 EDT) Specimen Description Cervix [facility] Result No Chlamydia trachomatis DNA detected by tenant relations coordinator mediated amplification. [facility] Report Status Final [id number] [facility] 02/10/2007 20:3 8 EDT 02/10/2007 20:38 EDT Luis Archer MD MICROBIOLOGY - GEN ERAL ORDERABLES Performing Organization Address [facility] Co de Phone Number [facility] [address] [place] [address] * BACTERIAL CULTURE, URINE (02/10/2007 13:20 EDT) Specimen Description Urine [facility] Result Less than 10,000 CFU/ml Mixed gram positive growth [facility] Report Status Final [id number] [facility] 02/10/2007 13:2 0 EDT 02/10/2007 18:22 EDT Luis Archer MD MICROBIOLOGY - GEN ERAL ORDERABLES Performing Organization Address City/[facility] Co de Phone Number [facility] [address] [place] [address] * UA REFLEX (02/10/2007 13:20 EDT) UA Billing Microscopic not indicated. [facility] 02/10/2007 13:2 0 EDT 02/10/2007 18:22 EDT Luis Archer MD URINALYSIS ORDERAB LES Performing Organization Address [facility] Co de Phone Number [facility] [address] [place] [address] * URINALYSIS (02/10/2007 13:20 EDT) Color, UA Yellow [facility] Clarity, UA Clear [facility] Glucose, UA Norm NORM [facility] Bilirubin, UA Neg NEG [facility] Ketones, UA Neg NEG [facility] Specific [place], Urine 1.020 1.005 - 1.02 [facility] Blood, UA Neg NEG [facility] pH, UA 6.5 5.0 - 9.0 [facility] Protein, UA Neg NEG [facility] Urobilinogen, UA Norm NORM mg/dL [facility] Nitrite, UA Neg NEG [facility] Leuk Esterase Neg NEG [facility] 02/10/2007 13:2 0 EDT 02/10/2007 18:22 EDT Luis Archer MD URINALYSIS ORDERAB LES Performing Organization Address [facility] Co de Phone Number [facility] [address] [place] [address] documented in this encounter Visit Diagnoses Not on filedocumented in this encounter Care Teams Budget And Policy Analyst Relationship Specialty Start Date End Date Tamara Neal MD [address] [place] [phone] PCP - General 09/13/08 03/18/13 Stephanie Garces MD [address] [place] [phone] PCP - General 08/19/08 09/12/08 documented as of this encounter
--- OUTSIDE RECORDS SUMMARY | 2024-02-14 15:30 | XMS_ITS | Encounter Summary ---
Author Organization [facility] Address [address] [place] [address] Care Team Providers Care Director Staffing Name Role Phone Tamara Neal MD Primary Care Provider + Stephanie Garces MD Primary Care Provider +1- [phone] Encounter Details Date Type Department Care Team (Late st Contact Info) Description 01/24/2007 Results Only [facility] [address] [place] [address] Charlee Bentley MD [address] [facility] [address] [place] [phone] Social History Tobacco Use Types Packs/Day Years [...] Associated Diagnosis Comments QUANT BETA HCG, Routine 01/24/2007 13:30 EDT documented in this encounter Results * (ABNORMAL) HCG (01/24/2007 13:30 EDT) HCG 6984(H) <4 mIU/ml [facility] Comment: Reference Range: Positive = >10 Borderline = 4-10 recommend repeat. Negative = <4 01/24/2007 13:3 0 EDT 01/24/2007 15:01 EDT Charlee Bentley MD CHEMISTRY & BLOOD G ORDERABLES [facility] [address] [place] [address] documented in this encounter Visit Diagnoses Not on filedocumented in this encounter Care Teams Director Staffing Relationship Specialty Start Date End Date Tamara Neal MD [address] [place] [phone] PCP - General 09/13/08 03/18/13 Stephanie Garces MD [address] [place] [phone] PCP - General 08/19/08 09/12/08 documented as of this encounter
--- OUTSIDE RECORDS SUMMARY | 2024-02-14 15:30 | XMS_ITS | Continuity of Care Document ---
Author Name [facility] Address [address] [place] [address] Organization [facility] Address [address] [place] [address] Care Team Providers Care Plate Cutter Name Role Phone Annette Padron Primary Care Physician Unavailab le Allergies, Adverse Reactions, Alerts Allergen Type Severity Reaction Last Updated Verified Status NO KNOWN DRUG ALLERGIES Allergy December 21, 2016 Y Active *MRSA Allergy May 30, 2015 Active Medications Active Medications Medication Dose Units Route Sig Qty Days Start Date St atus Tramadol 50 mg ORAL Q6H PRN For Pain November 09, 2015 Active Dexmethylphenidate [Focalin Xr] 10 mg ORAL THREE TIMES A DAY November 09, 2015 Active Sitagliptin [Januvia] 100 mg ORAL DAILY Ju 2015 Active Metformin Hydrochloride [Metformin 1000 mg tab] 1000 mg ORAL TWICE A DAY November 09, 2015 Active Gabapentin [Gabapentin 300 mg cap] 600 mg ORAL TWICE A DAY November 09, 2015 Active Trazodone July 30, 2016 Active Cyclobenzaprine 10 mg ORAL THREE AMOS ES A DAY September 06, 2016 Active Simvastatin 20 mg ORAL DAILY September 17, 2016 Active Mupirocin Calcium [Bactroban Nasal] 1 APPLIC NASAL TWICE A DAY 15 September 17 17 Active Levonorgestrel [Mirena] December 21, 2016 Active Labetalol December 21, 2016 Active Discontinued Medications Medication Dose Units Route Sig Qty Days Start Date Discontinued Date Status Pioglitazone 5 mg ORAL DAILY SepOctober 02, 2011 Discontinued Metformin [Glucophage] 1000 mg ORAL TWICE DAILY BEFORE MEALS October 02, 2011 October 02, 2011 Discontinued Insulin Glargine 10 units SUBCUTANEOUS BEDTIME October 02, 2011 October 02, 2011 Discontinued Quetiapine [Seroquel] 100 mg ORAL DAILY November 09, 2015 July 30, 2016 Discontinued Clindamycin Hcl 300 MG ORAL FOUR TIMES DAILY July 30, 2016 September 06, 2016 Discontinued Sulfamethoxaz ole-Trimethop rim [Bactrim Ds] 1 TAB ORAL Q12H 20 September 17, 2016 December 21, 2016 Discontinued Problem List Active Problems Medical Problem Onset Date Status Encephalopathy, toxic Active Hypokalemia Active LFT elevation Active QT prolongation Active Anxiety Active Asthma Active Back pain Active Chronic pain disorder Active Depression Active Diabetes mellitus, type II Activ e Fibromyalgia Active HTN (hypertension) Active Hx of sciatica Active Hx of suicide attempt Active Hypercholesteremia Active Obesity Active Tobacco abuse Active Inactive/Resolved Problems Medical Problem Onset Date Status Epigastric pain Resolved Suicidal ideations Resolved Procedures Procedure Date Status Chest 2 vw December 21, 2016 active Gram Stain September 17, 2016 completed Abscess Culture September 17, 2016 completed Ankle 3 vw Min RT September 06, 2016 completed EMERGENCY DEPT VISIT June 05, 2016 active Ankle 3 vw Min RT April 29, 2016 completed EMERGENCY DEPT VISIT April 29, 2016 active X-RAY EXAM OF ANKLE April 29, 2016 active EMERGENCY DEPT VISIT February 06, 2016 active DRAINAGE OF SKIN ABSCESS February 06, 2016 active Reason for Referral Reason for Referral Date Referral was Provided Provider Office Contact Location Relevant Diagnostic Tests and/or Laboratory Data Microbiology Results Procedure Source Result Collection Date/Time Resu lt Date/Time Abscess Culture Nose Staphylococcus Aureus-Mrsa September 17, 2016 9:40pm September 20, 2016 7:28am Gram Stain Nose No results entered September 17, 2016 9:40 pm Advance Directives Advance Directive Response Recorded Date/ Time Do we have a copy on file here at [facility]? No July 30, 2016 11:08pm Does patient have an Advanced Directive? No September 12, 2010 8:32am Pt has a Living Will? No September 12 11 8:32am Pt has a Power of Regasification Plant Operator? No September 12, 2010 8:32am Chief Complaint and Reason for Visit Encounter Admit Date Chief Complaint Reason for V isit Departed Emergency December 21, 2016 12:32am PULMONARY C [facility] Hospital Discharge Instructions Additional Discharge Instructions I susp ect a viral cough complicated by smoking. Your xray preliminary interpretation does not reveal any pneumonia. You will be informed if the final read reveals anything new and pertitinent. Use your proair inhaler as prescribed. You were given a neb treatment and a single dose long acting corticosteroid. I advise follow up with your PCP in 3-5 days. If you have severe worsening, pain, difficulty breathing, coughing blood, develop a fever or other new worrisome symptoms, return to the ED right away. Discussed quitting smoking with the pump technician. This is sound advise to quit smoking. Your primary doctor can offer further assistance to help you quit. Instruction/Education Provided [facility] In[facility] Discharge Medications Medication Dose Units Route Sig Qty Days Order Date Status Instructions Pioglitazone 5 mg ORAL DAILY Sep Discontinue d Metformin 1000 mg ORAL TWICE DAILY BEFORE MEALS October 02, 2011 Discontinue d Insulin Glargine 10 units SUBCUTANEO US BEDTIME October 02, 2011 Discontinue d Tramadol 50 mg ORAL Q6H PRN For Pain November 09, 2015 Active Quetiapine 100 mg ORAL DAILY November 09, 2015 Discontinue d Dexmethylphenid ate 10 mg ORAL THREE TIMES A DAY November 09, 2015 Active Sitagliptin 100 mg ORAL DAILY November 09, 2015 Active Metformin Hydrochloride 1000 mg ORAL TWICE A DAY November 09, 2015 Active Gabapentin 600 mg ORAL TWICE A DAY November 09, 2015 Active Trazodone July 30, 2016 Active Clindamycin Hcl 300 MG ORAL FOUR TIMES DAILY July 30, 2016 Discontinue d Cyclobenzaprine 10 mg ORAL THREE TIMES A DAY September 06, 2016 Active Simvastatin 20 mg ORAL DAILY September 17, 2016 Active Sulfamethoxazol e-Trimethoprim 1 TAB ORAL Q12H 20 August 282016 Discontinue d Mupirocin Calcium 1 APPLIC NASAL TWICE A DAY 15 14 September 17, 2016 Active Levonorgestrel Tyron ugust 2016 Active Labetalol December 21, 2016 Active Encounters Encounter Facility Location Admit/Visit Date Discharge/Departure Date Attending Provider Departed Emergency [facility] Emergency Department December 21, 2016 12:32am December 21, 2016 1:20am Departed Emergency [facility] Emergency Department September 17, 2016 9:09pm September 17, 2016 9:54pm Departed Emergency [facility] Emergency Department September 06, 2016 6:30pm September 06, 2016 8:08pm Discharged Recurring [facility] September 03, 2016 4:30pm October 19, 2016 8:52am Merrick Mason Departed Referred [facility] Pathology August 29, 2016 9:23pm August 29, 2016 9:24pm Ghulam Fuentes Departed Referred [facility] August 29, 2016 4:52pm August 29, 2016 4:53pm Ghulam Fuentes Departed Emergency [facility] Emergency Department July 30, 2016 8:10pm July 30, 2016 11:16pm Departed Emergency [facility] Emergency Department June 05, 2016 6:17pm June 05, 2016 8:36pm Departed Emergency [facility] Emergency Department April 29, 2016 3:10pm April 29, 2016 4:27pm Departed Emergency [facility] Emergency Department February 06, 2016 4:52pm February 06, 2016 6:13pm Family History Query Response Instance Date Recorded Comment Grandparents Diabetes Mellitus Cancer November 08, 2015 11:34pm Functional Status No known functional status. Immunizations No known immunizations. Payers Payer Name Policy Type Covered Libertarian Covered Libertarian Id Relationship Subscriber Subscriber Id [facility]ICAID [facility] Medicaid HILDA RAMIREZBY [id number] Self/Same as Patient HILDA CARLINE [id number] SELF PAY Personal [place] MEDICAID (DO NOT USE) Medicaid HILDA CARLINE [id number] Self/Same as Patient HILDA CARLINE [id number] Plan of Care Instructions Asthma Inhaler [facility] Social History Query Response Date Recorded Comment Alcohol Rare November 08, 2015 11:34pm Drugs Other November 08, 2015 11:34pm Living Situation Alone November 08, 2015 9:40pm Query Response Start Date Stop Date Smoking Status Current every day smoker Vital Signs Vital Reading Result Reference Range Collection Date/Time Height 5 ft December 21, 2016 12:35am Weight 93.894 kg December 21, 2016 12:35am Temperature 98.8 F 97.6 F-99.6 F December 21, 201 7 12:35am Pulse 86 BPM 60-100 December 21, 2016 1:05am Respiration 20 RPM -December 21, 2016 1:05am Pulse Oximetry 99 % 95-100 December 21 1:05am Blood Pressure Systolic 136 100-[address] 2016 12:35am Blood Pressure Diastolic 96 50-85 Nov ust 2016 12:35am Body Mass Index n/a
--- OUTSIDE RECORDS SUMMARY | 2024-02-14 15:30 | XMS_ITS | Encounter Summary ---
Author Organization [facility] Address [address] [place] [address] Care Team Providers Care Cotton Ball Machine Tender Name Role Phone Tamara Neal MD Primary Care Provider + Stephanie Garces MD Primary Care Provider +[phone]- [phone] Encounter Details Date Type Department Care Team (Late st Contact Info) Description 01/22/2007 Results Only [facility] [address] [place] [address] Charlee Bentley MD [address] [facility] [address] [place] [phone] Social History Tobacco Use Types [...] Associated Diagnosis Comments QUANT BETA HCG, Routine 01/22/2007 16:15 EDT documented in this encounter Results * (ABNORMAL) HCG (01/22/2007 16:15 EDT) HCG 4533(H) <4 mIU/ml [facility] Comment: Reference Range: Positive = >10 Borderline = 4-10 recommend repeat. Negative = <4 01/22/2007 16:1 5 EDT 01/22/2007 19:27 EDT Charlee Bentley MD CHEMISTRY & BLOOD G ORDERABLES [facility] [address] [place] [address] documented in this encounter Visit Diagnoses Not on filedocumented in this encounter Care Teams Cotton Ball Machine Tender Relationship Specialty Start Date End Date Tamara Neal MD [address] [place] [phone] PCP - General 09/13/08 03/18/13 Stephanie Garces MD [address] [place] [phone] PCP - General 08/19/08 09/12/08 documented as of this encounter
--- OUTSIDE RECORDS SUMMARY | 2024-02-14 15:30 | XMS_ITS | Encounter Summary ---
Author Organization Health system Address [address] [place] [address] Care Team Providers Care Concrete Polisher Name Role Phone Unavailable Primary Care Provider Unavailabl e Encounter Details Date Type Department Care Team (Late st Contact Info) Description 06/17/2007 7:00 EST - 06/17/2007 11:59 EST Hospital Encounter [facility] [address] [place] [address] Ira Gibson MD 111 [facility], [facility] [address] [place] [phone] Discharge Disposition: Home or Self Care Social [...] Name Priority Date/Time Associated Diagnosis Comments URINE MICROSCOPIC Routine 06/17/2007 7:5 4 EST URINALYSIS WITH MICROSCOPIC IF POSITIVE Routine 06/17/2007 7:54 EST TESTS ADDED BY PHONE Routine 06/17/2007 7:30 EST KLEIHAUER BLOOD Routine 06/17/2007 7:30 EST FIBRINOGEN Routine 06/17/2007 7:30 EST COMPLETE BLOOD COUNT AND DIFFERENTIAL Routine 06/17/2007 7:30 EST HEMOGLOBIN A1C Routine 06/17/2007 7:30 EST documented in this encounter Results * (ABNORMAL) URINE MICROSCOPIC (06/17/2007 7:54 EST) WBC, UA None seen 0 - 5 /HPF [facility] RBC, UA less than 1 0 - 5 /HPF [facility] Squam Epithel, UA Few(A) NS /HPF [facility] Renal Epithel, UA None seen NS /HPF [facility] Bacteria, UA None seen NS /HPF [facility] Crystals, UA None seen /HPF [facility] Hyaline Casts, UA None seen /LPF [facility] UA Comment Microscopic results are unreliable on urines unrefrig >2hrs or refrig >8hrs. [facility] 06/17/2007 7:54 EST 06/17/2007 8:07 EST Ira Gibson MD URINALYSIS ORDERAB LES [facility] [address] [place] [address] * (ABNORMAL) URINALYSIS (06/17/2007 7:54 EST) Color, UA Yellow [facility] Clarity, UA Clear [facility] Glucose, UA Norm NORM [facility] Bilirubin, UA Neg NEG [facility] Ketones, UA Neg NEG [facility] Specific Welcome, Urine <1.005(L) 1.005 - 1.02 [facility] Blood, UA Small(A) NEG [facility] pH, UA 6.5 5.0 - 9.0 [facility] Protein, UA Neg NEG [facility] Urobilinogen, UA Norm NORM mg/dL [facility] Nitrite, UA Neg NEG [facility] Leuk Esterase Neg NEG [facility] 06/17/2007 7:54 EST 06/17/2007 8:07 EST Ira Gibson MD URINALYSIS ORDERAB LES Performing Organization Address [facility] Co de Phone Number [facility] [address] [place] [address] * KLEIHAUER BLOOD (06/17/2007 7:30 EST) Kleihauer blood RARE CELLS SEEN ml F/M HEMORRHAGE [facility] Comment:Rev'd by Pathologist 06/17/2007 7:30 EST 06/17/2007 8:03 EST Ira Gibson MD HEMATOLOGY & PF4 O RDERABLES Performing Organization Address [facility] de Phone Number [facility] [address] [place] [address] * (ABNORMAL) FIBRINOGEN (06/17/2007 7:30 EST) Pathologist [facility] Fibrinogen 483(H) 220 - 410 mg/dl [facility] 06/17/2007 7:30 EST 06/17/2007 8:03 EST Ira Gibson MD HEMATOLOGY & PF4 O RDERABLES Performing Organization Address [facility] de Phone Number [facility] [address] [place] [address] * (ABNORMAL) HEMAGRAM AND DIFFERENTIAL (06/17/2007 7:30 EST) WBC 11.05 4.0 - 12.4 K/cmm [facility] RBC 3.40(L) 3.86 - 5.04 M/cmm [facility] Hemoglobin 10.9(L) 11.6 - 15.2 gm/dl [facility] HCT 31.0(L) 34.9 - 44.4 % [facility] MCV 91 81 - 98 fl [facility] MCH 32.0 26.7 - 33.3 pg [facility] MCHC 35.2 32.1 - 35.9 gm/dl [facility] PLT 294 141 - 320 K/cmm [facility] RDW-CV 12.5 11.7 - 14.6 % [facility] % Neutrophils 72.7 45.5 - 79.7 % [facility] % Lymphocytes 20.5 15.0 - 46.8 % [facility] % Monocytes 6.0 1.8 - 12.0 % [facility] % Eosinophils 0.4(L) 0.6 - 6.9 % [facility] % Basophils 0.4 0.2 - 1.4 % [facility] ABS Neutrophils 8.04 2.20 - 8.85 K/cmm [facility] ABS Lymphs 2.26 1.09 - 3.30 K/cmm [facility] ABS Monocytes 0.66 0.1 - 0.8 K/cmm [facility] ABS Eosinophils 0.04 0.03 - 0.61 K/cmm [facility] ABS Basophils 0.04 0.01 - 0.11 K/cmm [facility] Type of Diff: Automated [facility] 06/17/2007 7:30 EST 06/17/2007 8:03 EST Ira Gibson MD PACKAGES & DNA PRO BE ORDERABLES Performing Organization Address [facility] Co de Phone Number [facility] [address] [place] [address] * TESTS ADDED BY PHONE (06/17/2007 7:30 EST) Tests to be added A1C [facility] Who Called [facility] [place] [facility] Location Code M7 [facility] 06/17/2007 7:30 EST 06/17/2007 8:03 EST Ira Gibson MD CHEMISTRY & BLOOD GAS ORDERABLES Performing Organization Address [facility] Co de Phone Number [facility] [address] [place] [address] * HEMOGLOBIN A1C (06/17/2007 7:30 EST) Hemoglobin A1C 5.1 % [facility] Comment: Reference Range: <6% Normal range ADA guidelines: The A1c goal for non adults in general is <7%. The A1c goal for selected individual patients is as close to normal (<6%) as possible without significant hypoglycemia. 06/17/2007 7:30 EST 06/17/2007 8:03 EST Ira Gibson MD CHEMISTRY & BLOOD GAS ORDERABLES [facility] [address] [place] [address] documented in this encounter Visit Diagnoses Not on filedocumented in this encounter
--- OUTSIDE RECORDS SUMMARY | 2024-02-14 15:30 | XMS_ITS | Encounter Summary ---
Author Organization [facility] Address [address] [place] [address] Care Team Providers Care Tour Bus Driver/Guide Name Role Phone Unavailable Primary Care Provider Unavailabl e Encounter Details Date Type Department Care Team (Late st Contact Info) Description 01/22/2007 12:43 EDT Hospital Encounter [facility] - Other [address] [place] [address] Charlee Bentley MD [address] [place] [phone] Discharge Disposition: Auto Discharge Social History Tobacco [...]
--- OUTSIDE RECORDS SUMMARY | 2024-02-14 15:30 | XMS_ITS ---
Author Organization Unknown Address [address] [place] [phone] Phone Care Team Providers Care Compensation Programs Manager Name Role Phone JES DELAROSA Attending Unavailable Results MRI-PELVIS WITHOUT CONTRAST - Completed: 01/18/2021 12:00 LOINC: MRI OF THE PELVIS AND HIPS:N oncontrast MRI of the pelvis and hips was performed according to protocol. There are no priors for comparison. There is normal marrow signal. No evidence of an occult fracture or avascular necrosis. The hip joint spaces are well maintained without significant joint effusion. The labrum appears grossly unremarkable on this noncontrast examination. On the left, there is mild hyperintense signal seen adjacent to the greater trochanter adjacent to the gluteus medius and gluteus minimus tendons and medial to the iliotibial band. Similar but slightly more pronounced findings are seen on the right side. Muscles show normal signal and size. No significant muscular fatty atrophy. There is mild hyperintense signal within and around the right common hamstring tendon. This is consistent with tendinosis. Hyperintense signal within the tendon may represent a small partial tear. The visualized tendons are otherwise unremarkable. IMPRESSION: 1. Hyperintense signal seen adjacent to the greater trochanters bilaterally as described above. Differential considerations include gluteus medius muscle strain, grater trochanteric bursitis and inflammation of the iliotibial tracts. 2. Hyperintense signal seen within and around the right common hamstring tendon consistent with tendinosis. The signal within the tendon may represent a small partial tear. Dictated by: ROYA MATTHEWS M.D. RADIOLOGIST Transcribed by: KARSTEN 01/18/2116:03 D Monday, January 18, 2021 12:44:55 PM [id number] Electronically Reviewed and Signed By: ROYA MATTHEWS M.D. RADIOLOGIST 01/19/21 12:27 Copy for: JES DELAROSA via link MRI-SPINAL LUMBAR WITHOUT CO NTRAST - Completed: 01/18/2021 12:00 LOINC: MRI OF THE LUMBAR SPINE: Routine noncontrast examination was performed. The conus medullaris has a normal appearance and location. L5-S1 shows no focal disc herniation, central spinal canal or neural foraminal stenosis. At L4-L5, there is disc desiccation. There is a small left lateral disc herniation which causes mild to moderate narrowing of the left neural foramen compressing the exiting nerve root. No significant central spinal canal stenosis is seen. There are mild hypertrophic changes of the facet joints. L3-L4 shows no focal disc herniation, central spinal canal or neural foraminal stenosis. L2-L3 shows no focal disc herniation, central spinal canal or neural foraminal stenosis. L1-L2 shows no focal disc herniation, central spinal canal or neural foraminal stenosis. Marrow signal is within normal limits. IMPRESSION: Left lateral disc herniation at L4-L5 which causes mild to moderate narrowing of the left neural foramen mildly compressing the exiting nerve root. Dictated by: TOÑO MATTHEWS M.D. RADIOLOGIST Transcribed by: KARSTEN 01/18/21/15:57 D Monday, January 18, 2021 12:33:03 PM [id number] Electronically Reviewed and Signed By: ROYA MATTHEWS M.D. RADIOLOGIST 01/19/21 12:27 Copy for: JES DELAROSA via link Social History Type Status Start Date End Date Code Code Syst em Smoking History Current every day smoker 136430739 SNOMED CT Sex Female Medications Medication Start Date End Date Route Frequency Dose Code Code System Medication Instructions Home Meds ACTOS TABLET 10/24/2018 07/01/2021 ORAL DAILY 1 TABLET R xNorm TAKE 1 TABLET ORAL DAILY Labetalol HCl 200MG Oral Tablet 10/24/2018 07/01/2021 ORAL DAILY 200 MILLIGRAMS 95406 2 RxNorm TAKE 200 MILLIGRAMS ORAL DAILY NEURONTIN 600MG ORAL TABLET 10/24/2018 07/01/2021 ORAL TWICE A DAY 600 MILLIGRAMS RxNorm TAKE 600 MILLIGRAMS ORAL TWICE A DAY SEROQUEL 300MG ORAL TABLET 10/24/2018 07/01/2021 ORAL DAILY 300 MILLIGRAMS RxNorm TAKE 300 MILLIGRAMS ORAL DAILY metFORMIN HCl 1000MG Oral Tablet, Extended Release 10/24/2018 07/01/2021 ORAL TWICE A DAY 91724 94 RxNorm TAKE 000 MILLIGRAMS ORAL TWICE A DAY Cyclobenzapr ine 10MG Oral Tablet 12/14/2018 10/26/2021 ORAL THREE TIMES A DAY 10 MILLIGRAMS 97159 8 RxNorm TAKE 10 MILLIGRAMS ORAL THREE TIMES A DAY JANUVIA 100MG ORAL TABLET 12/14/2018 07/01/2021 ORAL DAILY 100 MILLIGRAMS RxNorm TAKE 100 MILLIGRAMS ORAL DAILY LAMICTAL 200MG ORAL TABLET 12/14/2018 07/01/2021 ORAL DAILY 200 MILLIGRAMS RxNorm TAKE 200 MILLIGRAMS ORAL DAILY Lisinopril 20MG Oral Tablet 12/14/2018 07/01/2021 ORAL DAILY 20 MILLIGRAMS 93093 7 RxNorm TAKE 20 MILLIGRAMS ORAL DAILY [...] 07/26/2021 ORAL TWICE A DAY 1000 MILLIGRAMS 34609 94 RxNorm TAKE 1000 MILLIGRAMS ORAL TWICE A DAY Ondansetron 4MG Oral Tablet, Disintegrati ng 07/05/2021 10/26/2021 ORAL NEEDED EVERY 6 HOURS 1 TABLET 19352 4 RxNorm TAKE 1 TABLET ORAL NEEDED EVERY 6 HOURS FOR Nausea/Vomi ting Phenergan 25MG Rectal Suppository 07/26/2021 10/26/2021 RECTAL DAILY 1 SUPPOSITORY 25948 7 RxNorm INSERT 1 SUPPOSITORY RECTAL DAILY HYDROcodone bitartrate-a cetaminophen 5MG-325MG Oral Tablet 09/19/2021 10/26/2021 ORAL EVERY 6 HOURS 1 TABLET 02142 2 RxNorm TAKE 1 TABLET ORAL EVERY 6 HOURS Zithromax 250MG Oral Tablet 04/17/2022 01/25/2023 ORAL DAILY 1 TABLET 13913 6 RxNorm TAKE 1 TABLET ORAL DAILY predniSONE 20MG Oral Tablet 04/17/2022 01/07/2023 ORAL DAILY 2 TABLET 40560 5 RxNorm TAKE 2 TABLET ORAL DAILY Percocet 5MG-325MG Oral Tablet 01/07/2023 06/23/2023 ORAL NEEDED EVERY 4 HOURS 1 TABLET 82557 40 RxNorm TAKE 1 TABLET ORAL NEEDED EVERY 4 HOURS predniSONE 20MG Oral Tablet 01/07/2023 01/07/2023 ORAL DAILY 2 TABLET 70532 5 RxNorm TAKE 2 TABLET ORAL DAILY predniSONE 20MG Oral Tablet 01/07/2023 06/23/2023 ORAL DAILY 2 TABLET 81581 5 RxNorm TAKE 2 TABLET ORAL DAILY LaMICtal 150MG Oral Tablet 06/23/2023 11/11/2023 ORAL DAILY 1 TABLET 93349 1 RxNorm TAKE 1 TABLET ORAL DAILY HumaLOG 100U/1ML Injection Solution 06/23/2023 Unknown INJECTION DAILY 1 unit(s) 59912 8 RxNorm 1 EACH INJECTION DAILY Ondansetron 4MG Oral Tablet 06/23/2023 01/31/2024 ORAL NEEDED EVERY 6 HOURS 4 MILLIGRAMS 2 RxNorm TAKE 4 MILLIGRAMS ORAL NEEDED EVERY 6 HOURS SEROquel 100MG Oral Tablet 06/23/2023 11/11/2023 ORAL BEDTIME 150 MILLIGRAMS 86969 9 RxNorm TAKE 150 MILLIGRAMS ORAL BEDTIME Spironolacto ne 100MG Oral Tablet 06/23/2023 Unknown ORAL DAILY 100 MILLIGRAMS 2 RxNorm TAKE 100 MILLIGRAMS ORAL DAILY Vraylar 6MG Oral Capsule 06/23/2023 11/11/2023 ORAL DAILY 6 MILLIGRAMS 03565 78 RxNorm TAKE 6 MILLIGRAMS ORAL DAILY [...] Status Code Code System SLURRED SPEECH active 573747122 SNOME D-CT DIABETES 2 active 50421638 SNOMED-CT BIPOLAR DISORDER active 40200386 SNO MED-CT PTSD 09/19/2021 resolved 65280799 SNOMED-CT FIBROMYALGIA 09/19/2021 resolved 213302694 SNOMED -CT DIABETES 2 07/05/2021 resolved 40715362 SNOMED-C T FALL FROM STAIRS 06/23/2023 resolved 074396799 SN OMED-CT CLOSED FRACTURE OF RIGHT HUMERUS 06/23/2023 resolved 44829125582239196 SNOMED-CT HTN 09/19/2021 resolved 39213320 SNOMED-CT BIPOLAR DISORDER 09/19/2021 resolved 36811135 SN OMED-CT Allergies and Adverse Reactions Allergy Substance Reaction Severity Start Date Concern Status Co de Code System LISINOPRIL Active 53232 RxNorm AMBIEN Altered Mental Status (SNOMED-CT: 572979038) Active 567011 RxNorm Plan of Treatment Lab Draw 07/30/2020 Lab Draw 05/28/2020 US ABDOMEN LIMITED 1 ORGAN 05/06/2023 US RIGHT UPPER QUAD 07/05/2021 Encounters Encounter Diagnosis Start Date Code Code Sys tem Intervertebral disc disorder s with radiculopathy, lumbar region 01/18/2021 SNOMED-CT Personal Care Team Section Performer Name Performer Role Active Date Inactive Da donita
--- OUTSIDE RECORDS SUMMARY | 2024-02-14 15:30 | XMS_ITS | Encounter Summary ---
Author Organization [facility] Address [address] [place] [address] Care Team Providers Care Block Sawyer Name Role Phone Tamara Neal MD Primary Care Provider + Stephanie Garces MD Primary Care Provider [phone] Encounter Details Date Type Department Care Team (Late st Contact Info) Description 02/24/2007 Results Only [facility] - [facility] conversion [address] [place] [address] Luis Archer MD 111 [facility] [address] [place] [phone] Social History Tobacco Use Types Packs/Day Years Used Date Smoking Tobacco: Never Assessed Sex and Gender Information Value Date Recorded Sex Assigned at Not on file Gender Identity Not on file Sexual Orientation Not on file documented as of this encounter Plan of Treatment Not on file documented as of this encounter Procedures Procedure Name Priority Date/Time Associated Diagnosis Comments PROFILE Routine 02/24/2007 12:1 5 EDT HIV 1/2 ANTIGEN AND ANTIBODY, 4TH GENERATION Routine 02/24/2007 12:15 EDT HEMOGLOBIN A1C Routine 02/24/2007 12:15 EDT documented in this encounter Results * HIV ANTIBODY (02/24/2007 12:15 EDT) HIV 1/2 Antibody NONREACT. NR [facility] 02/24/2007 12:1 5 EDT 02/24/2007 12:40 EDT Luis Archer MD IMMUNOLOGY AND SER OLOGY ORDERABLES [facility] [address] [place] [address] * PROFILE (02/24/2007 12:15 EDT) ABO and Rh Type A NEG [facility] Antibody Screen Neg [facility] WBC 10.08 4.0 - 12.4 K/cmm [facility] RBC 3.87 3.86 - 5.04 M/cmm [facility] Hemoglobin 12.7 11.6 - 15.2 gm/dl [facility] HCT 36.3 34.9 - 44.4 % [facility] MCV 94 81 - 98 fl [facility] MCH 32.8 26.7 - 33.3 pg [facility] MCHC 35.0 32.1 - 35.9 gm/dl [facility] PLT 266 141 - 320 K/cmm [facility] RDW-CV 11.9 11.7 - 14.6 % [facility] % Neutrophils 68.8 45.5 - 79.7 % [facility] % Lymphocytes 24.1 15.0 - 46.8 % [facility] % Monocytes 5.5 1.8 - 12.0 % [facility] % Eosinophils 0.7 0.6 - 6.9 % [facility] % Basophils 0.9 0.2 - 1.4 % [facility] ABS Neutrophils 6.94 2.20 - 8.85 K/cmm [facility] ABS Lymphs 2.43 1.09 - 3.30 K/cmm [facility] ABS Monocytes 0.55 0.1 - 0.8 K/cmm [facility] ABS Eosinophils 0.07 0.03 - 0.61 K/cmm [facility] ABS Basophils 0.09 0.01 - 0.11 K/cmm [facility] Type of Diff: Automated [facility] Hepatitis B Surface Ag Neg [facility] Syphilis Sero (RPR) NONREACT. NR Dils [facility] Rubella IgG Ab Antibody detected Assayed utilizing the DPC Immulite 2500. Values may vary with other methods. [facility] 02/24/2007 12:1 5 EDT 02/24/2007 12:40 EDT Luis Archer MD PACKAGES & DNA PRO BE ORDERABLES Performing Organization Address [facility] Co de Phone Number [facility] [address] [place] [address] * HEMOGLOBIN A1C (02/24/2007 12:15 EDT) Hemoglobin A1C 5.5 % [facility] Comment: Reference Range: <6% Normal Range <7% Recommended goal by ADA guidelines 7-8% Suboptimal by ADA guidelines >8% Further action suggested by ADA guidelines 02/24/2007 12:1 5 EDT 02/24/2007 12:40 EDT Luis Archer MD CHEMISTRY & BLOOD GAS ORDERABLES Performing Organization Address [facility] de Phone Number [facility] [address] [place] [address] documented in this encounter Visit Diagnoses Not on filedocumented in this encounter Care Teams Block Sawyer Relationship Specialty Start Date End Date Tamara Neal MD [address] [place] [phone] PCP - General 09/13/08 03/18/13 Stephanie Garces MD [address] [place] [phone] PCP - General 08/19/08 09/12/08 documented as of this encounter
--- OUTSIDE RECORDS SUMMARY | 2024-02-14 15:30 | XMS_ITS | Encounter Summary ---
Author Organization [facility] Address [address] [place] [address] Care Team Providers Care Corporate Manager Name Role Phone Tamara Nela MD Primary Care Provider + Stephanie Garces MD Primary Care Provider [phone]- [phone] Encounter Details Date Type Department Care Team (Late st Contact Info) Description 03/25/2007 Before PRISM Converted Visit (Map[facility]) [facility] - [facility] conversion [address] [place] [address] Charity Onofre MD [address] [facility], Level [address] [place] [phone] Social History Tobacco Use Types Packs/Day Years Used Date Smoking Tobacco: Never Assessed Sex and Gender Information Value Date Recorded Sex Assigned at Not on file Gender Identity Not on file Sexual Orientation Not on file documented as of this encounter Consult Notes * Charity Onofre MD - 03/08/2009 0246 EST DIVISION OF MATERNAL MEDICINE CONSULTATION - 03/25/2007 March 25, 2007 Luis Archer MD [facility] [address] [place] [phone] Archer: Thank you for sending patient Guzman Jean to the maternal medicine group for consultation regarding her type 2 diabetes. As you know, she is a 31-year-old 2, para 1-0-0-1 at 14+5 weeks' gestational age by last menstrual period, consistent with an 11-week ultrasound. This is a followup from her initial consultation regarding her type 2 diabetes, for which she was originally taking metformin. She is currently on insulin NPH 20 units in the morning and 20 units at bedtime. Her fasting sugars at today's visit range greatly, with five out of eight values above 95 up to a value of 171. Her two- hour postprandials were more stable, with only five out of 21 above target goal of 120. Today her blood pressure was 120/70 and her weight was 204.8 pounds. Fundal height was at about 18 cm, and heart rate was heard but difficult to obtain secondary to body habitus. Again, she is a 31-year-old 2, para 1-0-0-1 at 14+5 weeks' gestational age with the following issues: 1. Type 2 diabetes. At this point, we elected to keep her at insulin NPH 20 units in the morning but increase her evening dose to 25 units. She has a 24- hour urine collection, which was submitted today for total protein, and she has her own director part whom she plans to see for evaluation. 2. The patient is status post UltraScreen. She has an alpha-fetoprotein pending, and UltraScreen results should be ready for her later this week. 3. History of section. The patient is unsure at present of whether or not she desires repeat section or no. 4. OB care. The patient at today's visit elects to transfer her obstetrical care to the maternal medicine department, and we would be happy to follow her for the duration of her . Thank you again for allowing us to participate in this patient's care. We will follow up with her in two weeks. Dictated by Betzy Canales MD ATTENDING ADDENDUM Dear Pat: Thank you for referring Ms. Jean for a followup consultation for her type 2 diabetes. I saw and discussed the patient with Dr. Betzy Canales, as above. I agree with her assessment and plan as above. 1. Type 2 diabetes. The patient has had increased fasting blood sugars. We have increased her NPH to 25 nightly, and she will continue her NPH 20 every morning. I anticipate she will need progressively increasing levels of insulin as her insulin resistance increases over . 2. Status post UltraScreen, which is pending. 3. Declined alpha-fetoprotein. 4. Recommend congenital anomaly screen at 20-22 weeks. Given her normal hemoglobin A1c in the earlypregnancy, should her cardiac structures appear normal on her initial screen, she does not necessarily need a echocardiogram unless there are other concerns regarding cardiac status. At the end of the visit, the patient states that she feels it would be easier if she was followed by the maternal medicine service, and therefore we are arranging her transfer to our care. Please let us know if we can be of any further help. I spent 15 minutes in discussion with the pt about the above findings. Sincerely, Signed by Charity Onofre MD 04/16/2007 13:36 Charity Onofre MD - Charity Onofre MD - Job ID: [id number] Doc ID: [id number] cc: Luis Archer MD - Job ID: [id number] Doc ID: [id number] cc: Luis Archer MD documented in this encounter Plan of Treatment Not on file documented as of this encounter Visit Diagnoses Not on filedocumented in this encounter Care Teams Corporate Manager Relationship Specialty Start Date End Date Tamara Neal MD [address] [place] [phone] PCP - General 09/13/08 03/18/13 Stephanie Garces MD [address] [place] [phone] PCP - General 08/19/08 09/12/08 documented as of this encounter
--- OUTSIDE RECORDS SUMMARY | 2024-02-14 15:30 | XMS_ITS | Encounter Summary ---
Author Organization [facility] Address [address] [place] [address] Care Team Providers Care Ibm Mainframe Systems Programmer Name Role Phone Unavailable Primary Care Provider Unavailabl e Encounter Details Date Type Department Care Team (Late st Contact Info) Description 03/25/2007 13:29 [facility] Hospital Encounter [address] [address] Charity Onofre MD [address] [place] [address], [address] [place] [phone] Carroll Doan MD Discharge Disposition: Auto Discharge Social History [...]
--- OUTSIDE RECORDS SUMMARY | 2024-02-14 15:30 | XMS_ITS | Encounter Summary ---
Author Organization [facility] Address [address] [place] [address] Care Team Providers Care Printing Pressman Name Role Phone Tamara Neal MD Primary Care Provider + Stephanie Garces MD Primary Care Provider [phone]- [phone] Encounter Details Date Type Department Care Team (Late st Contact Info) Description 02/24/2007 Before PRISM Converted Visit ([facility] [address] [place] [address] Betzy Canales MD [address] [place] [phone] Social History Tobacco Use Types Packs/Day Years Used Date Smoking Tobacco: Never Assessed Sex and Gender Information Value Date Recorded Sex Assigned at Not on file Gender Identity Not on file Sexual Orientation Not on file documented as of this encounter Consult Notes * Betzy Canales MD - 03/06/2009 0156 EST DIVISION OF MATERNAL MEDICINE CONSULTATION - 02/24/2007 Luis Archer MD [address] [place] [address] Archer: Thank you for sending this patient today for a consultation regarding her type 2 diabetes. As you know, Guzman Jean is a 31-year-old, 2, para 1-0-0-1 at 10+4 weeks gestational age by last menstrual period, consistent with a first trimester ultrasound. She is known for type 2 diabetes, for which she is on Metformin. Thus far, the patient reports that her due date is September 18, 2007. Thisis consistent with her last menstrual period and a first trimester ultrasound. She does not report that she has been monitoring her blood glucose levels at home. Past surgical history significant for section in 1998 and for a tonsillectomy at age 22. Past gynecologic history: In August 2006, ascus HPV-positive Pap. Patient plans to have follow-up smears following that initial Pap smear. No history of sexually- transmittedinfections. Patient is also known for polycystic ovarian syndrome with a history of irregular menses. 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 She conceived this after being on Clomid for three months. Past obstetrical history: Patient had a section in 1998 at 42 weeks gestational age for arrested descent following induction of labor post date. She delivered a healthy 8 pound 12 ounce female in [place]. Social history: The patient works at the [employer] and plans to work throughout the . She reports that she quit smoking upon positive urine test. She denies any alcohol intake and any history of past or current elicit drug use. Allergies: No known drug allergies. Medications: Patient is currently taking Metformin 500 mg t.i.d. Objective: Blood pressure today was 120/78. Her weight was 204.8 pounds. We were unable to hear heart tones today using the Doppler. Additional visits: 1. Patient was seen and counseled by the person investigator on an ADA diet. 2. Patient was seen by our nurse and taught home glucose monitoring. This is a 31-year-old, 2, para 1-0-0-1 at 10+4 weeks gestational age with type 2 diabetes mellitus currently on Metformin. We discussed the following with her today: 1. The risks to the with diabetes include macrosomia with subsequent difficult delivery, delayed pulmonary maturation, potential hypoglycemia, and an increased risk of jaundice. 2. These risks are greater with poorly controlled diabetes. For this reason, we recommend that she obtain a fasting blood glucose level in addition to 2 hour postprandial glucose levels after breakfast, lunch and dinner. We would recommend that you monitor a minimumof three days a week. She was given detailed instructions by our nurse on this technique. 3. The mainstay of therapy for diabetes is the ADA diet. She was instructed by our person investigator today in specific dietary recommendations. We are currently using a carbohydrate-based diet rather thana calorie-counting diet. 4. Andrea have her follow up in 1-2 weeks during which time she will record blood glucose levels, both fasting and postprandial. At this point, she will be approximately 12 weeks gestational age. At that visit, we plan to stop the Metformin and begin insulintherapy. The initial insulin dosing will be weight- based and, given that she is pre-gestational diabetic, recommendation would be 0.9 units per kilogram. However, given risk for hypoglycemia, we likely may start a lower initial dose and follow her needs as progresses. We would recommend that she continue to monitor her blood sugars because glucose intolerance can progress with advancing gestation. 5. An ultrasound examination for estimated weight should be considered if there is clinical suspicion for macrosomia during the last four weeks of . This may assist in your clinical decision-making around the timing and mode of delivery. 6. We recommend that antepartum testing be instituted at 34-36 weeks' gestation in patients with diabetes. This may be through twice-weekly nonstress tests or weekly biophysical profile. In well-controlled diabetics without any risk factors, such as macrosomia, hyperglycemia, or advanced maternal age, monitoring may not be of clinical benefit and assessments should be considered on a tsxy-gb-leds basis. 7. In well-controlled diabetes without any risk factors, elective delivery prior to 41 weeks' gestation may not be warranted. However, if risk factors exist or glucose values are elevated, then we would consider delivery by 40 weeks. If elective delivery is considered prior to 39 weeks, evaluation of lung maturity should be considered. 8. Previous . The patient is still considering a trial of labor after section. Risks of macrosomia were again reviewed with the patient and we discussed growth scans as progresses will be helpful in making that clinical decision with you. 9. The patient is scheduled to have an ultrasound at approximately 12 weeks gestational age, at which time we will also evaluate for any evidence of anencephaly. Dr. Méndez spent his entire 15-minute session with Ms. Jean. Sincerely, Signed by Haim Méndez MD 03/05/2007 14:42 Jeovanny Canales MD Haim Méndez MD - Betzy Canales MD - GLT Job ID: [id number] Doc ID: [id number] cc: Luis Archer MD Job ID: [id number] Doc ID: [id number] cc: Luis Archer MD documented in this encounter Plan of Treatment Not on file documented as of this encounter Visit Diagnoses Not on filedocumented in this encounter Care Teams Printing Pressman Relationship Specialty Start Date End Date Tamara Neal MD [address] [place] [phone] PCP - General 09/13/08 03/18/13 Stephanie Garces MD [address] [place] [phone] PCP - General 08/19/08 09/12/08 documented as of this encounter
--- OUTSIDE RECORDS SUMMARY | 2024-02-14 15:30 | XMS_ITS | Encounter Summary ---
Author Organization [facility] Address [address] [place] [address] Care Team Providers Care Hand Weaver Name Role Phone Unavailable Primary Care Provider Unavailabl e Encounter Details Date Type Department Care Team (Late st Contact Info) Description 09/05/2006 14:41 EDT Hospital Encounter [facility] - Other [address] [place] [address] Charlee Bentley MD [address] [place] [address] [address] [place] [phone] Discharge Disposition: Auto Discharge Social History [...] Comments HPV DETECTION, HIGH RISK TYPES Routine 09/05/2006 14:04 EDT documented in this encounter Results * HUMAN PAPILLOMA VIRUS DNA TEST (09/05/2006 14:04 EDT) Specimen Description Cervix, ThinPrep vial [facility] Result Positive for one or more of HPV types 16,18,31,33,35 ,39,45,51,52,5 6,58,59, or 68. These high/intermedi ate risk HPV types are associated with dysplasia and some cervical cancers. [facility] Report Status Final [id number] [facility] 09/05/2006 14:0 4 EDT 09/12/2006 14:04 EDT Charlee Bentley MD MICROBIOLOGY - GENE RAL ORDERABLES Performing Organization Address City/State/[facility] Co de Phone Number [facility] [address] [place] [address] documented in this encounter Visit Diagnoses Not on filedocumented in this encounter
--- OUTSIDE RECORDS SUMMARY | 2024-02-14 15:30 | XMS_ITS | Encounter Summary ---
Author Organization [facility] Address [address] [place] [address] Care Team Providers Care Testing Projects Administrator Name Role Phone Unavailable Primary Care Provider Unavailabl e Encounter Details Date Type Department Care Team (Latest Contact Info) Description 06/24/2007 13:50 EST Hospital Encounter [facility] [address] [place] [address] Khalida Quiñones MD Discharge Disposition: Home or [...] Date/Time Associated Diagnosis Comments GLUCOSE, GLUCOMETER Routine 06/24/2007 1 5:43 EST FIBRINOGEN Routine 06/24/2007 14:45 EST COMPLETE BLOOD COUNT AND DIFFERENTIAL Routine 06/24/2007 14:45 EST URIC ACID Routine 06/24/2007 14:45 EST BUN Routine 06/24/2007 14:45 EST ALT Routine 06/24/2007 14:45 EST AST Routine 06/24/2007 14:45 EST CREATININE Routine 06/24/2007 14:45 EST URINALYSIS WITH MICROSCOPIC IF POSITIVE Routine 06/24/2007 14:25 EST UA REFLEX Routine 06/24/2007 14:25 EST URINE CULTURE IF POSITIVE Routine 06/24/2007 14:25 EST documented in this encounter Results * GLUCOSE, GLUCOMETER (06/24/2007 15:43 EST) Glucose, Fingerstick 90 70 - 100 mg/dl [facility] Management Specialist ID [id number] Test Performed by Nursing Services [facility] 06/24/2007 15:4 3 EST 06/24/2007 15:44 EST Khalida Quiñones MD CHEMISTRY & BLOOD GA S ORDERABLES Performing Organization Address [facility] de Phone Number [facility] [address] [place] [address] * URIC ACID (06/24/2007 14:45 EST) Uric Acid 3.6 2.2 - 7.7 mg/dl [facility] 06/24/2007 14:4 5 EST 06/24/2007 14:49 EST Khalida Quiñones MD CHEMISTRY & BLOOD GA S ORDERABLES Performing Organization Address [facility] de Phone Number [facility] [address] [place] [address] * (ABNORMAL) FIBRINOGEN (06/24/2007 14:45 EST) Fibrinogen 501(H) 220 - 410 mg/dl [facility] 06/24/2007 14:4 5 EST 06/24/2007 14:49 EST Khalida Quiñones MD HEMATOLOGY & PF4 ORD ERABLES Performing Organization Address [facility] Co de Phone Number [facility] [address] [place] [address] * (ABNORMAL) CREATININE (06/24/2007 14:45 EST) Creatinine 0.50(L) 0.7 - 1.5 mg/dl [facility] GFR, Calculated >60 ml/min/1.7 3m2 [facility] 06/24/2007 14:4 5 EST 06/24/2007 14:49 EST Khalida Quiñones MD CHEMISTRY & BLOOD GA S ORDERABLES [facility] [address] [place] [address] * (ABNORMAL) HEMAGRAM AND DIFFERENTIAL (06/24/2007 14:45 EST) Pathologist [facility] WBC 9.73 4.0 - 12.4 K/cmm [facility] RBC 3.26(L) 3.86 - 5.04 M/cmm [facility] Hemoglobin 10.6(L) 11.6 - 15.2 gm/dl [facility] HCT 30.0(L) 34.9 - 44.4 % [facility] MCV 92 81 - 98 fl [facility] MCH 32.5 26.7 - 33.3 pg [facility] MCHC 35.2 32.1 - 35.9 gm/dl [facility] PLT 292 141 - 320 K/cmm [facility] RDW-CV 13.6 11.7 - 14.6 % [facility] % Neutrophils 66.4 45.5 - 79.7 % [facility] % Lymphocytes 25.8 15.0 - 46.8 % [facility] % Monocytes 6.1 1.8 - 12.0 % [facility] % Eosinophils 1.5 0.6 - 6.9 % [facility] % Basophils 0.2 0.2 - 1.4 % [facility] ABS Neutrophils 6.46 2.20 - 8.85 K/cmm [facility] ABS Lymphs 2.51 1.09 - 3.30 K/cmm [facility] ABS Monocytes 0.60 0.1 - 0.8 K/cmm [facility] ABS Eosinophils 0.14 0.03 - 0.61 K/cmm [facility] ABS Basophils 0.02 0.01 - 0.11 K/cmm [facility] Type of Diff: Automated [facility] 06/24/2007 14:4 5 EST 06/24/2007 14:49 EST Khalida Quiñones MD PACKAGES & DNA PROBE ORDERABLES Performing Organization Address City/[facility] de Phone Number [facility] [address] [place] [address] * (ABNORMAL) BUN (06/24/2007 14:45 EST) BUN 6(L) 10 - 26 mg/dl [facility] 06/24/2007 14:4 5 EST 06/24/2007 14:49 EST Khalida Quiñones MD CHEMISTRY & BLOOD GA S ORDERABLES Performing Organization Address [facility] de Phone Number [facility] [address] [place] [address] * AST (06/24/2007 14:45 EST) AST 17 15 - 46 U/L [facility] 06/24/2007 14:4 5 EST 06/24/2007 14:49 EST Khalida Quiñones MD CHEMISTRY & BLOOD GA S ORDERABLES Performing Organization Address City/[facility] de Phone Number [facility] [address] [place] [address] * ALT (06/24/2007 14:45 EST) ALT 11 9 - 52 U/L [facility] 06/24/2007 14:4 5 EST 06/24/2007 14:49 EST Khalida Quiñones MD CHEMISTRY & BLOOD GA S ORDERABLES Performing Organization Address [facility] Co de Phone Number [facility] [address] [place] [address] * UA REFLEX (06/24/2007 14:25 EST) UA Billing Microscopic not indicated. [facility] 06/24/2007 14:2 5 EST 06/24/2007 14:32 EST Khalida Quiñones MD URINALYSIS ORDERABLE S Performing Organization Address [facility] Co de Phone Number [facility] [address] [place] [address] * URINALYSIS (06/24/2007 14:25 EST) Color, UA Yellow [facility] Clarity, UA Clear [facility] Glucose, UA Norm NORM [facility] Bilirubin, UA Neg NEG [facility] Ketones, UA Neg NEG [facility] Specific [place], Urine 1.020 1.005 - 1.02 [facility] Blood, UA Neg NEG [facility] pH, UA 6.0 5.0 - 9.0 [facility] Protein, UA Neg NEG [facility] Urobilinogen, UA Norm NORM mg/dL [facility] Nitrite, UA Neg NEG [facility] Leuk Esterase Neg NEG [facility] 06/24/2007 14:2 5 EST 06/24/2007 14:32 EST Khalida Quiñones MD URINALYSIS ORDERABLE S Performing Organization Address [facility] de Phone Number [facility] [address] [place] [address] * CULTURE IF UA POSITIVE (06/24/2007 14:25 EST) Culture if Indicated Culture not indicated by urinalysis results. [facility] 06/24/2007 14:2 5 EST 06/24/2007 14:32 EST Khalida Quiñones MD MICROBIOLOGY - GENER AL ORDERABLES Performing Organization Address [facility] Co de Phone Number [facility] [address] [place] [phone] documented in this encounter Visit Diagnoses Not on filedocumented in this encounter
--- OUTSIDE RECORDS SUMMARY | 2024-02-14 15:30 | XMS_ITS ---
Author Organization Unknown Address [address] [place] [phone] Phone Care Team Providers Care E Learning Designer Name Role Phone MARY DURANT MD Attending Unavailable JES DELAROSA Primary Unavailable Results ANKLE LEFT 3V - Completed: 0 10/15/2020 04:10 LOINC: Three views were obtained. T here is mild soft tissue swelling laterally. No obvious fractures now widening of the mortise. The talar dome is unremarkable. Very subtle cortical irregularity at the inferior tip of the lateral malleolus may indicate a small avulsion fracture. Small inferior calcaneal spur is noted. IMPRESSION:Possible very subtle avulsion fracture at the tip of the lateral malleolus. Overlying soft tissue swelling. Appropriate followup recommended. The findings were discussed with the Emergency Department provider 10/15/20. Dictated by: MAGALI CHAN M.D. RADIOLOGIST Transcribed by: KARSTEN 10/16/2019:49 D Thursday, October 15, 2020 2:10:03 PM [id number] Electronically Reviewed and Signed By: ALBERTO CHAN M.D. RADIOLOGIST 10/17/20 17:05 Copy for: MARY DURANT MD via modem DISCHARGED Social History Type Status Start Date End Date Code Code Syst em Smoking History Current every day smoker 327366808 SNOMED CT Sex Female Medications Medication Start Date End Date Route Frequency Dose Code Code System Medication Instructions Home Meds ACTOS TABLET 10/24/2018 07/01/2021 ORAL DAILY 1 TABLET R xNorm TAKE 1 TABLET ORAL DAILY Labetalol HCl 200MG Oral Tablet 10/24/2018 07/01/2021 ORAL DAILY 200 MILLIGRAMS 90159 2 RxNorm TAKE 200 MILLIGRAMS ORAL DAILY NEURONTIN 600MG ORAL TABLET 10/24/2018 07/01/2021 ORAL TWICE A DAY 600 MILLIGRAMS RxNorm TAKE 600 MILLIGRAMS ORAL TWICE A DAY SEROQUEL 300MG ORAL TABLET 10/24/2018 07/01/2021 ORAL DAILY 300 MILLIGRAMS RxNorm TAKE 300 MILLIGRAMS ORAL DAILY metFORMIN HCl 1000MG Oral Tablet, Extended Release 10/24/2018 07/01/2021 ORAL TWICE A DAY 69120 94 RxNorm TAKE 000 MILLIGRAMS ORAL TWICE A DAY Cyclobenzapr ine 10MG Oral Tablet 12/14/2018 10/26/2021 ORAL THREE TIMES A DAY 10 MILLIGRAMS 68103 8 RxNorm TAKE 10 MILLIGRAMS ORAL THREE TIMES A DAY JANUVIA 100MG ORAL TABLET 12/14/2018 07/01/2021 ORAL DAILY 100 MILLIGRAMS RxNorm TAKE 100 MILLIGRAMS ORAL DAILY LAMICTAL 200MG ORAL TABLET 12/14/2018 07/01/2021 ORAL DAILY 200 MILLIGRAMS RxNorm TAKE 200 MILLIGRAMS ORAL DAILY Lisinopril 20MG Oral Tablet 12/14/2018 07/01/2021 ORAL DAILY 20 MILLIGRAMS 58900 7 RxNorm TAKE 20 MILLIGRAMS ORAL DAILY [...] 07/26/2021 ORAL TWICE A DAY 1000 MILLIGRAMS 34956 94 RxNorm TAKE 1000 MILLIGRAMS ORAL TWICE A DAY Ondansetron 4MG Oral Tablet, Disintegrati ng 07/05/2021 10/26/2021 ORAL NEEDED EVERY 6 HOURS 1 TABLET 96899 4 RxNorm TAKE 1 TABLET ORAL NEEDED EVERY 6 HOURS FOR Nausea/Vomi ting Phenergan 25MG Rectal Suppository 07/26/2021 10/26/2021 RECTAL DAILY 1 SUPPOSITORY 39291 7 RxNorm INSERT 1 SUPPOSITORY RECTAL DAILY HYDROcodone bitartrate-a cetaminophen 5MG-325MG Oral Tablet 09/19/2021 10/26/2021 ORAL EVERY 6 HOURS 1 TABLET 80981 2 RxNorm TAKE 1 TABLET ORAL EVERY 6 HOURS Zithromax 250MG Oral Tablet 04/17/2022 01/25/2023 ORAL DAILY 1 TABLET 83232 6 RxNorm TAKE 1 TABLET ORAL DAILY predniSONE 20MG Oral Tablet 04/17/2022 01/07/2023 ORAL DAILY 2 TABLET 11884 5 RxNorm TAKE 2 TABLET ORAL DAILY Percocet 5MG-325MG Oral Tablet 01/07/2023 06/23/2023 ORAL NEEDED EVERY 4 HOURS 1 TABLET 73530 40 RxNorm TAKE 1 TABLET ORAL NEEDED EVERY 4 HOURS predniSONE 20MG Oral Tablet 01/07/2023 01/07/2023 ORAL DAILY 2 TABLET 11509 5 RxNorm TAKE 2 TABLET ORAL DAILY predniSONE 20MG Oral Tablet 01/07/2023 06/23/2023 ORAL DAILY 2 TABLET 70412 5 RxNorm TAKE 2 TABLET ORAL DAILY LaMICtal 150MG Oral Tablet 06/23/2023 11/11/2023 ORAL DAILY 1 TABLET 91174 1 RxNorm TAKE 1 TABLET ORAL DAILY HumaLOG 100U/1ML Injection Solution 06/23/2023 Unknown INJECTION DAILY 1 unit(s) 87495 8 RxNorm 1 EACH INJECTION DAILY Ondansetron 4MG Oral Tablet 06/23/2023 01/31/2024 ORAL NEEDED EVERY 6 HOURS 4 MILLIGRAMS 18563 2 RxNorm TAKE 4 MILLIGRAMS ORAL NEEDED EVERY 6 HOURS SEROquel 100MG Oral Tablet 06/23/2023 11/11/2023 ORAL BEDTIME 150 MILLIGRAMS 81137 9 RxNorm TAKE 150 MILLIGRAMS ORAL BEDTIME Spironolacto ne 100MG Oral Tablet 06/23/2023 Unknown ORAL DAILY 100 MILLIGRAMS 2 RxNorm TAKE 100 MILLIGRAMS ORAL DAILY Vraylar 6MG Oral Capsule 06/23/2023 11/11/2023 ORAL DAILY 6 MILLIGRAMS 25992 78 RxNorm TAKE 6 MILLIGRAMS ORAL DAILY [...] Status Code Code System SLURRED SPEECH active 562903552 SNOME D-CT DIABETES 2 active 39300949 SNOMED-CT BIPOLAR DISORDER active 36475773 SNO MED-CT PTSD 09/19/2021 resolved 27306805 SNOMED-CT FIBROMYALGIA 09/19/2021 resolved 354023534 SNOMED -CT DIABETES 2 07/05/2021 resolved 11032108 SNOMED-C T FALL FROM STAIRS 06/23/2023 resolved 784151138 SN OMED-CT CLOSED FRACTURE OF RIGHT HUMERUS 06/23/2023 resolved 66359531075108477 SNOMED-CT HTN 09/19/2021 resolved 82674478 SNOMED-CT BIPOLAR DISORDER 09/19/2021 resolved 47807858 SN OMED-CT Allergies and Adverse Reactions Allergy Substance Reaction Severity Start Date Concern Status Co de Code System LISINOPRIL Active 50582 RxNorm AMBIEN Altered Mental Status (SNOMED-CT: 376262049) Active 937159 RxNorm Plan of Treatment Lab Draw 07/30/2020 Lab Draw 05/28/2020 US ABDOMEN LIMITED 1 ORGAN 05/06/2023 US RIGHT UPPER QUAD 07/05/2021 Encounters Encounter Diagnosis Start Date Code Code Sys tem Sprain of unspecified ligame nt of left ankle, initial encounter 10/15/2020 SNOMED-CT Personal Care Team Section Performer Name Performer Role Active Date Inactive Da te
--- OUTSIDE RECORDS SUMMARY | 2024-02-14 15:30 | XMS_ITS | Encounter Summary ---
Author Organization [facility] Address [address] [place] [address] Care Team Providers Care Raw Stock Machine Feeder Name Role Phone Unavailable Primary Care Provider Unavailabl e Encounter Details Date Type Department Care Team (Late st Contact Info) Description 02/10/2007 14:17 EDT Hospital Encounter [facility] - Other [address] [place] [address] Luis Archer MD [address] [facility], [facility] [address] [place] [phone] Discharge Disposition: Home or Self Care Social [...]
--- OUTSIDE RECORDS SUMMARY | 2024-02-14 15:30 | XMS_ITS | Encounter Summary ---
Author Organization [facility] Address [address] [place] [address] Care Team Providers Care Help Desk Internship Name Role Phone Tamara Neal MD Primary Care Provider + Stephanie Garces MD Primary Care Provider [phone] Encounter Details Date Type Department Care Team (Late st Contact Info) Description 01/31/2007 Results Only [facility] - Maple conversion [address] [place] [address] Charlee Bentley MD [address] [facility] [address] [place] [address] Social History Tobacco Use Types [...] Associated Diagnosis Comments QUANT BETA HCG, Routine 01/31/2007 15:00 EDT documented in this encounter Results * (ABNORMAL) HCG (01/31/2007 15:00 EDT) HCG 89698(H) <4 mIU/ml [facility] Comment: Reference Range: Positive = >10 Borderline = 4-10 recommend repeat. Negative = <4 01/31/2007 15:0 0 EDT 01/31/2007 19:30 EDT Charlee Bentley MD CHEMISTRY & BLOOD G ORDERABLES [facility] [address] [place] [address] documented in this encounter Visit Diagnoses Not on filedocumented in this encounter Care Teams Help Desk Internship Relationship Specialty Start Date End Date Tamara Neal MD [address] [place] [phone] PCP - General 09/13/08 03/18/13 Stephanie Garces MD [address] [place] [address] PCP - General 08/19/08 09/12/08 documented as of this encounter
--- OUTSIDE RECORDS SUMMARY | 2024-02-14 15:30 | XMS_ITS | Continuity of Care Document ---
Author Name [facility] Address [address] [place] [id number] Organization [facility] Address [address] [place] [address] Care Team Providers Care Keel Press Operator Name Role Phone Annette Padron Primary Care Physician Unavailab le Allergies, Adverse Reactions, Alerts Allergen Type Severity Reaction Last Updated Verified Status NO KNOWN DRUG ALLERGIES Allergy October 02, 2011 Y Active *MRSA Allergy May 30, 2015 Active Medications Active Medications Medication Dose Units Route Sig Qty Days Start Date Discontinued Date Status Instructions Dexmethylpheni date Hcl 10 MG ORAL THREE TIMES A DAY November 09, 2015 Active Metformin Hydrochloride 1000 MG ORAL TWICE A DAY November 09, 2015 Active Quetiapine Fumarate 100 MG ORAL DAILY November 09, 2015 Active Sitagliptin 100 MG ORAL DAILY November 09, 2015 Active Tramadol Hcl 50 MG ORAL Q6H PRN For Pain November 09, 2015 Active Gabapentin 600 MG ORAL TWICE A DAY November 09, 2015 Active Discontinued Medications Medication Dose Units Route Sig Qty Days Start Date Discontinued Date Status Instructions Pioglitazone Hcl 5 mg ORAL DAILY October 02, 2011 October 02, 2011 Disconti nued Metformin 1000 mg ORAL TWICE DAILY BEFOR E MEALS October 02, 2011 October 02, 2011 Disconti nued Insulin Glargine, Recombinan 10 UNITS SUBCUTA NEOUS BEDTI ME October 02, 2011 October 02, 2011 Disconti nued Problem List Active Problems Medical Problem Onset [...] Suicidal ideations Resolved Procedures Procedure Date Status Ankle 3 vw Min RT April 29, 2016 completed Blood Culture November 09, [address] Head w/o Contrast November 08, 2015 completed Chest 2 vw June 22, 2015 completed MRSA Screen May 26, 2015 completed Relevant Diagnostic Tests and/or Laboratory Data Laboratory Results Test Date/Time Result Interp. Ref. Range Result Co mment White Blood Count November 12, 2015 6:10pm 10.00 1000/mm3 4.8-10.8 Red Blood Count November 12, 2015 6:10pm 4.01 M/mm3 Low 4.20-5.40 Hemoglobin November 12, 2015 6:10pm 12.6 g/dL 12.0-16.0 Hematocrit November 12, 2015 6:10pm 36.3 % Low 37-47 Mean Corpuscular Volume November 12, 2015 6:10pm 90.5 fL 81.0-99.0 Mean Corpuscular Hemoglobin November 12, 2015 6:10pm 31.4 pg High 27-31 Mean Corpuscular Hemoglobin Concent November 12, 2015 6:10pm 34.7 g/dL 33-37 Red Cell Distribution Width November 12, 2015 6:10pm 12.4 % 11.5-14.5 Platelet Count November 12, 2015 6:10pm 374 1000/mm3 140-440 Mean Platelet Volume November 12, 2015 6:10pm 9.6 fL 7.4-10.4 Neutrophils (%) (Auto) November 12, 2015 6:10pm 52.6 % 40.0-72.0 Lymphocytes (%) (Auto) November 12, 2015 6:10pm 39.6 % 17-45 Monocytes (%) (Auto) November 12, 2015 6:10pm 6.5 % 3-11 Eosinophils (%) (Auto) November 12, 2015 6:10pm 0.9 % 0-3 Basophils (%) (Auto) November 12, 2015 6:10pm 0.4 % 0-1 Neutrophils # (Auto) November 12, 2015 6:10pm 5.26 1000/mm3 1.4-6.5 Lymphocytes # (Auto) November 12, 2015 6:10pm 3.96 1000/mm3 High 1.2-3.4 Monocytes # (Auto) November 12, 2015 6:10pm 0.65 1000/mm3 0.0-0.8 Eosinophils # (Auto) November 12, 2015 6:10pm 0.09 1000/mm3 0.0-0.7 Basophils # (Auto) November 12, 2015 6:10pm 0.04 1000/mm3 0.0-0.1 Differential Method November 12, 2015 6:10pm Automated Sodium Level November 12, 2015 6:10pm 143 mmol/L 137-145 Potassium Level November 12, 2015 6:10pm 3.6 mmol/L 3.6-5.0 Chloride Level November 12, 2015 6:10pm 103 mmol/L 98-107 Carbon Dioxide Level November 12, 2015 6:10pm 27 mmol/L 22-30 Anion Gap November 12, 2015 6:10pm 13 7-16 Blood Urea Nitrogen November 12, 2015 6:10pm 7 mg/dL 7-17 Creatinine November 12, 2015 6:10pm 0.55 mg/dL 0.52-1.04 Glomerular Filtration Rate Calc November 12, 2015 6:10pm > 60 mL/min Glucose Level November 12, 2015 6:10pm 199 mg/dL High 70-100 Osmolality November 08, 2015 6:19pm 279 mosm/kg 275-295 Test Performed by: [place] [address] Cushion Stuffer: Marlon Morales MD , Ph D Calcium Level November 09, 2015 7:10am 8.5 mg/dL 8.4-10.2 Delta: 9.7 on 11/08/15-9 Calcium Adjusted for Albumin November 09, 2015 7:10am 8.90 mg/dL 8.4-10.2 Magnesium Level November 09, 2015 7:10am 1.8 mg/dL 1.6-2.3 Total Bilirubin November 09, 2015 7:10am 1.8 mg/dL High 0.2-1.3 Direct Bilirubin November 08, 2015 6:19pm 0 mg/dL 0-0.3 Aspartate Amino Transf (AST/SGOT) November 09, 2015 7:10am 54 U/L High 14-36 Alanine Aminotransferase (ALT/SGPT) November 09, 2015 7:10am 62 U/L High 9-52 Total Protein November 09, 2015 7:10am 6.3 g/dL 6.3-8.2 Albumin November 09, 2015 7:10am 3.8 g/dL 3.5-5.0 Alkaline Phosphatase November 09, 2015 7:10am 75 U/L 38-126 Thyroid Stimulating Hormone (TSH) November 08, 2015 6:19pm 0.806 mlU/L 0.47-4.68 Lactic Acid Level November 09, 2015 7:10am 1.2 mmol/L 0.7-2.1 Hemoglobin A1c Percent November 09, 2015 7:10am 7.12 % High 4.2-6.5 < 7% Recommended goal by ADA guidelines 7-8% Suboptimal by ADA guidelines >8% Further action suggested by ADA guidelines Estimated Average Glucose mg/dL November 09, 2015 7:10am 158 mg/dL Urine Methadone Screen November 08, 2015 5:00pm Negative ng/mL Venous Blood pH November 08, 2015 5:51pm 7.39 pH 7.310-7.41 0 Mixed Venous Blood PCO2 November 08, 2015 5:51pm 36 mmHg Low 41.0-51.0 Venous Blood HCO3 November 08, 2015 5:51pm 21.0 mmol/L Low 23-30 Venous Blood Base Excess November 08, 2015 5:51pm -3.2 mmol/L Blood Gas Specimen Source November 08, 2015 5:51pm Venous Microbiology Results Procedure Source Result Collection Date/Time Resu lt Date/Time MRSA Screen Leg Staphylococcus Aureus-Mrsa May 26, 2015 4:25pm May 28, 2015 11:31am Blood Culture Blood NO GROWTH AFTER 5 DAYS November 08 016 7:15am Advance Directives Advance Directive Response Recorded Date/ Time Does the patient have a living will? No September 12, 2010 8:32am Does the patient have an advanced directive? No September 12, 2010 8:32am Power of Dramatic Director? No September 12, 2010 8:32am Hospital Discharge Instructions No known hospital discharge instructions. Hospital Discharge Medications Medication Dose Units Route Sig Qty Days Order Date Status Instructions Pioglitazone Hcl 5 mg ORAL DAILY October 02, 2011 Discontinue d Metformin 1000 mg ORAL TWICE DAILY BEFORE MEALS October 02, 2011 Discontinue d Insulin Glargine, Recombinan 10 UNITS SUBCUTANEOU S BEDTIME October 02, 2011 Discontinue d Dexmethylphenida te Hcl 10 MG ORAL THREE TIMES A DAY November 09, 2015 Active Metformin Hydrochloride 1000 MG ORAL TWICE A DAY November 09, 2015 Active Quetiapine Fumarate 100 MG ORAL DAILY November 09, 2015 Active Sitagliptin 100 MG ORAL DAILY November 09, 2015 Active Tramadol Hcl 50 MG ORAL Q6H PRN For Pain November 09, 2015 Active Gabapentin 600 MG ORAL TWICE A DAY November 09, 2015 Active Encounters Encounter Facility Location Admit Date Discharge Date Attending Provider Departed Emergency [facility] Emergency Department April 29, 2016 3:10pm April 29, 2016 4:27pm Departed Emergency [facility] Emergency Department February 06, 2016 4:52pm February 06, 2016 6:13pm Departed Emergency [facility] Emergency Department November 12, 2015 4:49pm November 12, 2015 7:02pm Discharged Inpatient [facility] Intensive Care Unit November 08, 2015 9:46pm November 09, 2015 7:20pm Gregorio Bryant Departed Emergency [facility] Emergency Department June 22, 2015 5:50pm June 22, 2015 8:15pm Departed Emergency [facility] Emergency Department May 29, 2015 2:24pm May 29, 2015 3:33pm Departed Emergency [facility] Emergency Department May 28, 2015 1:10pm May 28, 2015 3:00pm Departed Emergency [facility] Emergency Department May 27, 2015 3:36pm May 27, 2015 6:45pm Departed Emergency [facility] Emergency Department May 26, 2015 4:01pm May 26, 2015 4:50pm Family History Query Response Instance Date Recorded Comment Grandparents Diabetes Mellitus Cancer November 08, 2015 11:34pm Functional Status Query Response Date Recorded Comment Comprehension Ability Understands Concepts November 08 8:00am Memory Description Intact November 09, 2015 8:00am Mood Description Appropriate Calm November 09, 2015 12:15pm Patient Behavior Asleep November 09, 2015 12:15pm Speech Pattern Clear Appropriate November 09, 2015 8:00am Query Response Date Recorded Comment Ambulation Ability Independent November 08, 2015 9:40pm Clothing Mgt Ability Independent November 08, 2015 9:40pm Feeding Ability Independent November 08, 2015 9:40pm Hygiene & Grooming Ability Independent November 08, 2015 9:40pm Oral Hygiene Ability Independent November 08, 2015 9:40pm Toileting Ability Independent November 08, 2015 9:40pm Immunizations No known immunizations. Payers Payer Name Policy Type Covered Democrat Covered Democrat Id Relationship Subscriber Subscriber Id [place] Medicaid HILDA SILVEROUGHBY [id number] SELF/SAME PATIENT HILDA CARLINE [id number] Plan of Care No known plan of care. Social History Query Response Date Recorded Comment Alcohol Rare November 08, 2015 11:34pm Drugs Other November 08, 2015 11:34pm Living Situation Alone November 08, 2015 9:40pm Query Response Start Date Stop Date Smoking Status Current Every Day Smoker Vital Signs Vital Reading Result Reference Range Collection Date/Time Height 5 ft November 08, 2015 9 :40pm Weight n/a Temperature 96.3 F 97.6 F-99.6 F November 09, 2015 4:31pm Pulse 88 BPM 60-100 November 09, 2015 4 :31pm Respiration 18 RPM 12-24 November 09, 2015 4 :31pm Pulse Oximetry 97 % 95-100 November 09, 2015 4:31pm Blood Pressure Systolic 138 100-140 November 09, 2015 4:31pm Blood Pressure Diastolic 87 50-85 Oct 4:31pm Body Mass Index 34.0 November 07 6 9:40pm
--- OUTSIDE RECORDS SUMMARY | 2024-02-14 15:30 | XMS_ITS | Encounter Summary ---
Author Organization [facility] Address [address] [place] [address] Care Team Providers Care Tv Production Assistant Name Role Phone Tamara Neal MD Primary Care Provider + Stephanie Garces MD Primary Care Provider [phone]- [phone] Encounter Details Date Type Department Care Team (Late st Contact Info) Description 06/18/2007 Results Only [facility] Obstetrics & Midwifery - [address] [address] Elke Araujo MD [address] [phone] Social History Tobacco Use Types Packs/Day Years Used Date Smoking Tobacco: Never Assessed Sex and Gender Information Value Date Recorded Sex Assigned at Not on file Gender Identity Not on file Sexual Orientation Not on file documented as of this encounter Plan of Treatment Not on file documented as of this encounter Procedures Procedure Name Priority Date/Time Associated Diagnosis Comments ANTIBODY SCREEN- AMBULATORY ORDER ONLY Routine 06/18/2007 8:36 EST COMPLETE BLOOD COUNT Routine 06/18/2007 8:36 EST HEMOGLOBIN A1C Routine 06/18/2007 8:36 EST documented in this encounter Results * ANTIBODY SCREEN- AMBULATORY ORDER ONLY (06/18/2007 8:36 EST) Antibody Screen Neg [facility] 06/18/2007 8:36 EST 06/18/2007 8:44 EST Elke Araujo MD BLOOD BANK TESTS Performing Organization Address [facility] Co de Phone Number [facility] [address] [place] [address] * (ABNORMAL) HEMAGRAM (06/18/2007 8:36 EST) WBC 9.93 4.0 - 12.4 K/cmm [facility] RBC 3.30(L) 3.86 - 5.04 M/cmm [facility] Hemoglobin 10.7(L) 11.6 - 15.2 gm/dl [facility] HCT 30.2(L) 34.9 - 44.4 % [facility] MCV 92 81 - 98 fl [facility] MCH 32.5 26.7 - 33.3 pg [facility] MCHC 35.4 32.1 - 35.9 gm/dl [facility] PLT 291 141 - 320 K/cmm [facility] RDW-CV 13.0 11.7 - 14.6 % [facility] 06/18/2007 8:36 EST 06/18/2007 8:44 EST Elke Araujo MD HEMATOLOGY & PF4 ORD ERABLES Performing Organization Address [facility] Phone Number [facility] [address] [place] [address] * HEMOGLOBIN A1C (06/18/2007 8:36 EST) Hemoglobin A1C 5.1 % [facility] Comment: Reference Range: <6% Normal range ADA guidelines: The A1c goal for non adults in general is <7%. The A1c goal for selected individual patients is as close to normal (<6%) as possible without significant hypoglycemia. 06/18/2007 8:36 EST 06/18/2007 8:44 EST Elke Araujo MD CHEMISTRY & BLOOD GA S ORDERABLES Performing Organization Address [facility] Co de Phone Number [facility] [address] [place] [address] documented in this encounter Visit Diagnoses Not on filedocumented in this encounter Care Teams Tv Production Assistant Relationship Specialty Start Date End Date Tamara Neal MD [address] [place] [phone] PCP - General 09/13/08 03/18/13 Stephanie Garces MD [address] [place] [phone] PCP - General 08/19/08 09/12/08 documented as of this encounter
--- OUTSIDE RECORDS SUMMARY | 2024-02-14 15:30 | XMS_ITS | Encounter Summary ---
Author Organization [facility] Address [address] [place] [address] Care Team Providers Care [employer] Law Clerk Name Role Phone Tamara Neal MD Primary Care Provider + Stephanie Garces MD Primary Care Provider [phone]- [phone] Encounter Details Date Type Department Care Team (Late st Contact Info) Description 09/05/2006 Results Only [facility] [address] [place] [address] Charlee Bentley MD [address] [facility] [address] [place] [phone] Social History Tobacco Use Types [...] Priority Date/Time Associated Diagnosis Comments CYTOPATHOLOGY Routine 09/05/2006 0:00 EDT documented in this encounter Results * CYTOPATHOLOGY (09/05/2006 0:00 EDT) Pathology Report: CYTOPATHOLOGY REPORT Reports generated via electronic interface contain original data; however they are lacking the format of the original report. Caution should be taken when reading/interpreti ng unformatted reports. Name: ? HILDA CROWLEY ? Accession #: ? [id number] : ? 1975 (Age: 31) ??F ?Collect Date: ? 09/05/2006 Location: ? [facility] ? Receive Date: ? 09/06/2006 Provider: ?CHARLEE PERES MD Copy to: ? Specimen/Source: ?ThinPrep Pap Test, Cervix/Endocervix, processed on [employer] ThinPrep Imaging System, with manual evaluation Last Menstrual Period: ? 08/29/06 Hormonal/Contracep tive Status: ? Provera: In July Other: ? Additional clinical information: H/O PCOS HPVA - HPV testing requested if ASC-US on the current ThinPrep Pap test. ? SPECIMEN ADEQUACY ? Satisfactory for Evaluation - transformation zone component present GENERAL CATEGORIZATION ? Epithelial Cell Abnormality INTERPRETATION ? Squamous Cell Abnormality - Atypical squamous cells, undetermined significance (ASC-US). EDUCATIONAL NOTES/RECOMMENDATI ONS ? [facility] recommends following the 2001 Consensus Guidelines for the Management of Women with Cervical Cytological Abnormalities (ANDREW,2002;287:212 0-9). Management algorithms have been distributed by [facility] and are available online at www.ASCCP.org. ? Document reviewed and electronically signed by: ? JOSE RAUL SHERWOOD MD ? Report Date: ??09/12/2006 10:03 End of Report [facility] 09/05/2006 09/06/2006 Charlee Bentley MD PATHOLOGY ORDERABLE S [facility] [address] [place] [address] documented in this encounter Visit Diagnoses Not on filedocumented in this encounter Care Teams [employer] Law Clerk Relationship Specialty Start Date End Date Tamara Neal MD [address] [place] [phone] PCP - General 09/13/08 03/18/13 Stephanie Garces MD [address] [place] [phone] PCP - General 08/19/08 09/12/08 documented as of this encounter
--- OUTSIDE RECORDS SUMMARY | 2024-02-14 15:30 | XMS_ITS | Continuity of Care Document ---
Author Name [facility] Address [address] [place] [address] Organization [facility] Address [address] [place] [address] Care Team Providers Care Motorcycle Mechanic Name Role Phone Annette Padron Primary Care Physician Unavailab le Allergies, Adverse Reactions, Alerts Allergen Type Severity Reaction Last Updated Verified Status NO KNOWN DRUG ALLERGIES Allergy October 02, 2011 Y Active Medications Active Medications Medication Dose Units Route Sig Qty Days Start Date Discontinued Date Status Instructions Trazodone Hydrochloride 100 mg ORAL DAILY October 02, 2011 Active Hydromorphone Hydrochloride 8 mg ORAL PRN For Pain October 02, 2011 Active Citalopram Hydrobromide 40 mg ORAL DAILY October 02, 2011 Active Gabapentin 100 mg ORAL EVERY MORNIN G October 02, 2011 Active Gabapentin 300 mg ORAL TWICE A DAY October 02, 2011 Active Cyclobenzaprin e Hydrochlorid 10 mg ORAL THREE TIMES A DAY October 02, 2011 Active Methocarbamol 750 MG ORAL Q6H PRN For Muscle Spasm October 02, 2011 Active Simvastatin 20 mg ORAL BEDTIM E October 02, 2011 Active Discontinued Medications Medication Dose Units Route [...] Active Problems Medical Problem Onset Date Status Epigastric pain Active Procedures Procedure Date Status MRSA Screen May 26, 2015 active ANKLE 3VW MIN LT April 08, 2015 active ANKLE 3VW MIN LT March 08, 2015 active ANKLE 3VW MIN LT February 12, 2015 completed LUMBAR SPINE 2-3 VW February 12, 2015 completed HIP 2VW MIN LT W AP PELVIS February 12, 2015 comp leted Gram Stain June 13, 2014 completed Routine Culture June 13, 2014 completed Gram Stain May 31, 2014 completed Gram Stain May 31, 2014 active Routine Culture May 31, 2014 completed Ed Us Gd Needle Placement Asp May 31, 2014 a ctive Relevant Diagnostic Tests and/or Laboratory Data Laboratory Results Test Date/Time Result Interp. Ref. Range Result Comment White Blood Count June 13, 2014 2:20pm 17.48 1000/mm3 High 4.8-10.8 Red Blood Count June 13, 2014 2:20pm 3.57 M/mm3 Low 4.20-5.40 Hemoglobin June 13, 2014 2:20pm 10.8 g/dL Low 12.0-16.0 Hematocrit June 13, 2014 2:20pm 33.1 % Low 37-47 Mean Corpuscular Volume June 13, 2014 2:20pm 92.7 fL 81.0-99.0 Mean Corpuscular Hemoglobin June 13, 2014 2:20pm 30.3 pg 27-31 Mean Corpuscular Hemoglobin Concent June 13, 2014 2:20pm 32.6 g/dL Low 33-37 Red Cell Distribution Width June 13, 2014 2:20pm 12.9 % 11.5-14.5 Platelet Count June 13, 2014 2:20pm 564 1000/mm3 High 140-440 Mean Platelet Volume June 13, 2014 2:20pm 8.0 fL 7.4-10.4 Neutrophils (%) (Auto) June 13, 2014 2:20pm 77.0 % High 40.0-72.0 Lymphocytes (%) (Auto) June 13, 2014 2:20pm 17.0 % 17-45 Monocytes (%) (Auto) June 13, 2014 2:20pm 5.3 % 3-11 Eosinophils (%) (Auto) June 13, 2014 2:20pm 0.6 % 0-3 Basophils (%) (Auto) June 13, 2014 2:20pm 0.1 % 0-1 Neutrophils # (Auto) June 13, 2014 2:20pm 13.45 1000/mm3 High 1.4-6.5 Lymphocytes # (Auto) June 13, 2014 2:20pm 2.97 1000/mm3 1.2-3.4 Monocytes # (Auto) June 13, 2014 2:20pm 0.93 1000/mm3 High 0.0-0.8 Eosinophils # (Auto) June 13, 2014 2:20pm 0.11 1000/mm3 0.0-0.7 Basophils # (Auto) June 13, 2014 2:20pm 0.02 1000/mm3 0.0-0.1 Differential Method June 13, 2014 2:20pm Automated Neutrophils % (Manual) May 31, 2014 5:50pm 72.0 % 55-75 Band Neutrophils % May 31, 2014 5:50pm 4.0 % 2-6 Lymphocytes % (Manual) May 31, 2014 5:50pm 13.0 % Low 20-35 Monocytes % (Manual) May 31, 2014 5:50pm 10.0 % 3-11 Absolute Neutrophil May 31, 2014 5:50pm 19.094 1000/mm3 High 1.4-6.5 Band Neutrophils # May 31, 2014 5:50pm 1.06 1000/mm3 Lymphocytes # (Manual) May 31, 2014 5:50pm 3.447 1000/mm3 Monocytes # (Manual) May 31, 2014 5:50pm 2.652 1000/mm3 Eosinophils # (Manual) May 31, 2014 5:50pm 0 1000/mm3 Basophils # (Manual) May 31, 2014 5:50pm 0 1000/mm3 Metamyelocytes # May 31, 2014 5:50pm 0 1000/mm3 Myelocytes # May 31, 2014 5:50pm 0 1000/mm3 Promyelocytes # May 31, 2014 5:50pm 0 1000/mm3 Blastocytes # May 31, 2014 5:50pm 0 1000/mm3 Atypical Lymphocytes May 31, 2014 5:50pm 1.0 Absolute Atypical Lymphocytes May 31, 2014 5:50pm 0.265 Platelet Estimate May 31, 2014 5:50pm 25-30 Red Cell Morphology Comment May 31, 2014 5:50pm Normal rbc morph Sodium Level June 13, 2014 2:20pm 138 mmol/L 137-145 Potassium Level June 13, 2014 2:20pm 4.2 mmol/L 3.6-5.0 Chloride Level June 13, 2014 2:20pm 100 mmol/L 98-107 Carbon Dioxide Level June 13, 2014 2:20pm 25 mmol/L 22-30 Anion Gap June 13, 2014 2:20pm 13 7-16 Blood Urea Nitrogen June 13, 2014 2:20pm 11 mg/dL 7-17 Creatinine June 13, 2014 2:20pm 0.57 mg/dL 0.52-1.04 Glomerular Filtration Rate Calc June 13, 2014 2:20pm > 60 mL/min Glucose Level June 13, 2014 2:20pm 85 mg/dL 70-100 Microbiology Results Procedure Source Result Collection Date/Time Result Date/Time Routine Culture Abdomen Streptococcus Py ogenes Grp A May 31, 2014 5:50pm June 02, 2014 8:11am Gram Stain Abdomen No results entered May 31, 2014 5:50pm Routine Culture Abdomen MIXED CUTANEOUS ROSAMARIA ISOLATED. No further ID and/or susceptibility indicated. June 13, 2014 3:00pm Gram Stain Abdomen No results entered June 13, 2014 3:00pm Advance Directives Advance Directive Response Recorded Date/ Time Does the patient have a living will? No September 12, 2010 8:32am Does the patient have an advanced directive? No September 12, 2010 8:32am Power of Alternative Energy Engineer? No September 12, 2010 8:32am Hospital Discharge Instructions No known hospital discharge instructions. Hospital Discharge Medications Medication Dose Units Route Sig Qty Days Order Date Status Instructions Trazodone Hydrochloride 100 mg ORAL DAILY October 02, 2011 Active Hydromorphone Hydrochloride 8 mg ORAL PRN For Pain October 02, 2011 Active Citalopram Hydrobromide 40 mg ORAL DAILY October 02, 2011 Active Gabapentin 100 mg ORAL EVERY MORNING October 02, 2011 Active Gabapentin 300 mg ORAL TWICE A DAY October 02, 2011 Active Pioglitazone Hcl 5 mg ORAL DAILY October 02, 2011 Discontinue d Metformin 1000 mg ORAL TWICE DAILY BEFORE MEALS October 02, 2011 Discontinue d Cyclobenzaprine Hydrochlorid 10 mg ORAL THREE TIMES A DAY October 02, 2011 Active Methocarbamol 750 MG ORAL Q6H PRN For Muscle Spasm October 02, 2011 Active Insulin Glargine, Recombinan 10 UNITS SUBCUTANEOU S BEDTIME October 02, 2011 Discontinue d Simvastatin 20 mg ORAL BEDTIME October 02, 2011 Active Encounters Encounter Facility Location Admit Date Discharge Date Attending Provider Departed Emergency [facility] Emergency Department May 26, 2015 4:01pm May 26, 2015 4:50pm Registered Clinical [facility] April 08, 2015 11:01am Swapnil Galarza Registered Clinical [facility] March 08, 2015 12:02pm Swapnil Galarza Registered Clinical [facility] February 23, 2015 2:30pm Swapnil Galarza Departed Emergency [facility] Emergency Department February 14, 2015 8:22pm February 14, 2015 11:02pm Departed Emergency [facility] Emergency Department February 12, 2015 4:35pm February 12, 2015 7:02pm Departed Emergency [facility] Emergency Department November 30, 2014 5:26pm November 30, 2014 7:30pm Departed Emergency [facility] Emergency Department August 16, 2014 9:26pm August 16, 2014 10:25pm Departed Emergency [facility] Emergency Department August 06, 2014 4:03pm August 06, 2014 4:55pm Departed Emergency [facility] Emergency Department June 13, 2014 1:31pm June 13, 2014 3:27pm Departed Emergency [facility] Emergency Department May 31, 2014 4:56pm May 31, 2014 8:11pm Functional Status No known functional status. Immunizations No known immunizations. Payers Payer Name Policy Type Covered Green Party Covered Green Party Id Relationship Subscriber Subscriber Id [place] MEDICA[place] Medicaid [facility] [id number] SELF/SAME PATIENT HILDA RAMIREZBY [id number] Plan of Care No known plan of care. Social History No known social history. Vital Signs Vital Reading Result Reference Range Collection Date/Time Height 5 ft April 29, 2014 5:13am Weight n/a Temperature n/a Pulse n/a Respiration n/a Pulse Oximetry n/a Blood Pressure Systolic n/a Blood Pressure Diastolic n/a Body Mass Index n/a
--- OUTSIDE RECORDS SUMMARY | 2024-02-14 15:30 | XMS_ITS | Encounter Summary ---
Author Organization [facility] Address [address] [place] [address] Care Team Providers Care Consultant Teacher Name Role Phone Unavailable Primary Care Provider Unavailabl e Encounter Details Date Type Department Care Team (Latest Contact Info) Description 04/11/2007 14:48 EST Hospital Encounter [facility] [address] [place] [address] Unknown, Provider, Discharge Disposition: Auto Discharge Social [...] Procedure Name Priority Date/Time Associated Diagnosis Comments SHELTER DETAILED 04/28/2007 16:59 EST documented in this encounter Results * SHELTER DETAILED (04/28/2007 16:59 EST) Anatomical Region Laterality Modality Other 04/28/2007 16:5 9 EST Narrative 10/18/2008 4:23 EDT DETAILED,73415/DIABETES Please refer to the separate [facility] report. ??Contact Maternal Medicine. Procedure Note Ira Gibson MD - 10/18/2008 DETAILED,98463/DIABETES Please refer to the separate [facility] report. Contact Maternal Medicine. Ira Gibson MD IMG US SHELTER ORDERAB LES documented in this encounter Visit Diagnoses Not on filedocumented in this encounter
--- OUTSIDE RECORDS SUMMARY | 2024-02-14 15:30 | XMS_ITS | Encounter Summary ---
Author Organization [facility] Address [address] [place] [address] Care Team Providers Care Communication Manager Name Role Phone Unavailable Primary Care Provider Unavailabl e Encounter Details Date Type Department Care Team (Late st Contact Info) Description 05/02/2007 14:26 [facility] Hospital Encounter [address] [address] Ira Gibson MD [address] [place] [address], [address] [place] [id number] Discharge Disposition: Auto Discharge Social History Tobacco [...]
--- OUTSIDE RECORDS SUMMARY | 2024-02-14 15:30 | XMS_ITS | Encounter Summary ---
Author Organization [facility] Address [address] [place] [address] Care Team Providers Care Maint Mechanic Name Role Phone Tamara Neal MD Primary Care Provider + Stephanie Garces MD Primary Care Provider +1- [phone] Encounter Details Date Type Department Care Team (Late st Contact Info) Description 03/06/2007 Before PRISM Converted Visit (Maple) [facility] - Maple conversion [address] [place] [address] Carroll Doan MD Social History Tobacco Use Types Packs/Day Years Used Date Smoking Tobacco: Never Assessed Sex and Gender Information Value Date Recorded Sex Assigned at Not on file Gender Identity Not on file Sexual Orientation Not on file documented as of this encounter Consult Notes * Carroll Doan MD - 03/08/2009 0124 EST DIVISION OF MATERNAL MEDICINE CONSULTATION - 03/06/2007 March 06, 2007 Luis Archer MD [facility] [address] [place], [place] [id number] Dear Dr. Archer: Thank you for sending patient Guzman Jean to the maternal medicine group for consultation regarding her type 2 diabetes. As youknow, she is a 31-year-old G2, P1-0-0-1 at 12 weeks' gestational age by last menstrual period and 11-week ultrasound. She was initially evaluated for her type 2 diabetes, for which she was taking metformin. We elected to continue her on the metformin until 12 weeks, and she is here today for further evaluation. She does bring with her blood sugars. She today has no complaints and is trying to adhere to her ADA diet. She feels that she is doing very well andstates that she has lost two pounds. She is walking nightly and stays very active throughout the day. She has had no episodes of hypoglycemia. Today her blood pressure is 124/68. She states that she had heart tones performed today in the office, and these were not repeated. Fasting blood sugars are noted to be 91, 102, and 124. Two-hour postprandial breakfasts 91, 123, and 136. Two-hour postprandial lunches 128, 132, and 148. Two-hour postprandial dinners 120, 140, and 152. Again, she is a 31-year-old G2, P1-0-0-1 at 12 weeks' gestational age with the following issues: 1. Type 2 diabetes. At this time, the metformin will be stopped. Given that her blood sugars are over our target values of 95 for fasting and 120 for two-hour postprandials, we do elect to start her on insulin therapy. Weight-based dosing was calculated and would be the following: NPH 36 units every morning and 14 units nightly, regular insulin 18 units every morning and 14 units with dinner. However, given the concern for hypoglycemia as well as the fact that thispatient will be traveling overthe next few weeks and will be alternating from her routine, we elect to start NPH insulin 20 unitsevery morning as well as 20 units nightly. Insulin teaching was obtained today and a recording bookwas given to the patient. As she is a type 2 diabetic, we do recommend obtaining a 24-hour urine collection for total protein, checking a TSH as multiple endocrinologies can exist with the same patient, and referring the patient for an ophthalmologic evaluation. 2. Of note, the patient did have an ultrasound performed yesterday that indicated an 11-week 6-day gestational age. This was too early for the UltraScreen that she elected for diagnosis. Guillermina have an ultrasound scheduled on March 22, 2007, for UltraScreen. 3. Given her history of section in the past, she desires a repeat. She had full dilatation, however zero descent with her first . Thank you for allowing us to partake in the care of this patient. Please let us know if there are any further questions. She will return in one to two weeks after her vacation to review blood glucosecontrol. Dictated by Cameron Hemphill MD ATTENDING ADDENDUM Dear Dr. Archer: Thank you again for allowing us to participate in this patient's care via a maternal medicineconsultation secondary to 12 weeks of intrauterine with known type 2 diabetes as well as a history of a section. As you are aware, this patient is a 31-year-old para 1-0-0-1 well known to the maternal medicine service secondary to her history of type 2 diabetes diagnosed inthe early part of this . Her past history is remarkable for the section she underwent in 1998 of an 8-pound 12-ounce baby girl in [place]. That child is alive and doing well. In addition, she had a therapeutic in 1994. She presents today for reassessment of her blood glucose values with this medical visit. Her blood pressure is 120/68 today, and the heart tones were not evaluated because she stated that they were heard in your office today as well. She does not relate any episodes of hypoglycemia and is walking nightly for her exercise. Her fasting blood glucose values reveal two values above 95 mg%, and of her two-hour postprandial blood glucose values, the majority, greater than 90%, were above 120 mg%. Therefore, it was elected to start her on insulin today.We calculated a weight-based assessment, which put her estimate of insulin use in the 40-unit range, so it was elected to start her on 20 units of NPH insulin both in the morning and at bedtime. In addition, it was recommended that she have a 24-hour urine and thyroid-stimulating hormone laboratory assessment. She went through insulin teaching today and will be started on the above dosing, and does understand that she will be contacting our office with her blood glucose values approximately weekly. We also discussed her options around section, which she said you have also spoken with herabout. At this point, she does desire repeat section. In summary, this patient was begun on insulin today, as noted, and will be contacting us for followup blood glucose values until she is stable. It is likely that she will need some regular insulin tohelp cover her meal, two-hour postprandial glucose checks, but the plan is to stabilize her on her NPH insulin and fine tune her with regular insulin as needed over the course of the next few weeks. Thank you again for allowing us to participate in this patient's care, and please do not hesitate to contact me if you need any further information regarding her visit to our office today. We spent over half of our 35-minute visit in discussion of these issues around diabetes and management. Sincerely, Signed by Carroll Doan MD 03/12/2007 12:23 Carroll Doan MD - Carroll Doan MD - LW Job ID: [id number] Doc ID: [id number] cc: Luis Archer MD - Carroll Doan MD - lw Job ID: [id number] Doc ID: [id number] cc: Luis Archer MD documented in this encounter Plan of Treatment Not on file documented as of this encounter Visit Diagnoses Not on filedocumented in this encounter Care Teams Maint Mechanic Relationship Specialty Start Date End Date Tamara Neal MD [address] [place] [phone] PCP - General 09/13/08 03/18/13 Stephanie Garces MD [address] [place] [phone] PCP - General 08/19/08 09/12/08 documented as of this encounter
--- OUTSIDE RECORDS SUMMARY | 2024-02-14 15:30 | XMS_ITS ---
Author Organization Unknown Address [address] [place] [phone] Phone Care Team Providers Care Coagulating Drying Supervisor Name Role Phone HENOK SALAZAR Attending Unavailable JES DELAROSA Primary Unavailable Social History Type Status Start Date End Date Code Code Syst em Smoking History Current every day smoker 581024080 SNOMED CT Sex Female Medications Medication Start Date End Date Route Frequency Dose Code Code System Medication Instructions Home Meds ACTOS TABLET 10/24/2018 07/01/2021 ORAL DAILY 1 TABLET R xNorm TAKE 1 TABLET ORAL DAILY Labetalol HCl 200MG Oral Tablet 10/24/2018 07/01/2021 ORAL DAILY 200 MILLIGRAMS 84930 2 RxNorm TAKE 200 MILLIGRAMS ORAL DAILY NEURONTIN 600MG ORAL TABLET 10/24/2018 07/01/2021 ORAL TWICE A DAY 600 MILLIGRAMS RxNorm TAKE 600 MILLIGRAMS ORAL TWICE A DAY SEROQUEL 300MG ORAL TABLET 10/24/2018 07/01/2021 ORAL DAILY 300 MILLIGRAMS RxNorm TAKE 300 MILLIGRAMS ORAL DAILY metFORMIN HCl 1000MG Oral Tablet, Extended Release 10/24/2018 07/01/2021 ORAL TWICE A DAY 68913 94 RxNorm TAKE 000 MILLIGRAMS ORAL TWICE A DAY Cyclobenzapr ine 10MG Oral Tablet 12/14/2018 10/26/2021 ORAL THREE TIMES A DAY 10 MILLIGRAMS 37774 8 RxNorm TAKE 10 MILLIGRAMS ORAL THREE TIMES A DAY JANUVIA 100MG ORAL TABLET 12/14/2018 07/01/2021 ORAL DAILY 100 MILLIGRAMS RxNorm TAKE 100 MILLIGRAMS ORAL DAILY LAMICTAL 200MG ORAL TABLET 12/14/2018 07/01/2021 ORAL DAILY 200 MILLIGRAMS RxNorm TAKE 200 MILLIGRAMS ORAL DAILY Lisinopril 20MG Oral Tablet 12/14/2018 07/01/2021 ORAL DAILY 20 MILLIGRAMS 81505 7 RxNorm TAKE 20 MILLIGRAMS ORAL DAILY [...] 07/26/2021 ORAL TWICE A DAY 1000 MILLIGRAMS 37741 94 RxNorm TAKE 1000 MILLIGRAMS ORAL TWICE A DAY Ondansetron 4MG Oral Tablet, Disintegrati ng 07/05/2021 10/26/2021 ORAL NEEDED EVERY 6 HOURS 1 TABLET 00948 4 RxNorm TAKE 1 TABLET ORAL NEEDED EVERY 6 HOURS FOR Nausea/Vomi ting Phenergan 25MG Rectal Suppository 07/26/2021 10/26/2021 RECTAL DAILY 1 SUPPOSITORY 71580 7 RxNorm INSERT 1 SUPPOSITORY RECTAL DAILY HYDROcodone bitartrate-a cetaminophen 5MG-325MG Oral Tablet 09/19/2021 10/26/2021 ORAL EVERY 6 HOURS 1 TABLET 75327 2 RxNorm TAKE 1 TABLET ORAL EVERY 6 HOURS Zithromax 250MG Oral Tablet 04/17/2022 01/25/2023 ORAL DAILY 1 TABLET 68724 6 RxNorm TAKE 1 TABLET ORAL DAILY predniSONE 20MG Oral Tablet 04/17/2022 01/07/2023 ORAL DAILY 2 TABLET 11767 5 RxNorm TAKE 2 TABLET ORAL DAILY Percocet 5MG-325MG Oral Tablet 01/07/2023 06/23/2023 ORAL NEEDED EVERY 4 HOURS 1 TABLET 52813 40 RxNorm TAKE 1 TABLET ORAL NEEDED EVERY 4 HOURS predniSONE 20MG Oral Tablet 01/07/2023 01/07/2023 ORAL DAILY 2 TABLET 04467 5 RxNorm TAKE 2 TABLET ORAL DAILY predniSONE 20MG Oral Tablet 01/07/2023 06/23/2023 ORAL DAILY 2 TABLET 26751 5 RxNorm TAKE 2 TABLET ORAL DAILY LaMICtal 150MG Oral Tablet 06/23/2023 11/11/2023 ORAL DAILY 1 TABLET 1 RxNorm TAKE 1 TABLET ORAL DAILY HumaLOG 100U/1ML Injection Solution 06/23/2023 Unknown INJECTION DAILY 1 unit(s) 23724 8 RxNorm 1 EACH INJECTION DAILY Ondansetron 4MG Oral Tablet 06/23/2023 01/31/2024 ORAL NEEDED EVERY 6 HOURS 4 MILLIGRAMS 2 RxNorm TAKE 4 MILLIGRAMS ORAL NEEDED EVERY 6 HOURS SEROquel 100MG Oral Tablet 06/23/2023 11/11/2023 ORAL BEDTIME 150 MILLIGRAMS 09235 9 RxNorm TAKE 150 MILLIGRAMS ORAL BEDTIME Spironolacto ne 100MG Oral Tablet 06/23/2023 Unknown ORAL DAILY 100 MILLIGRAMS 2 RxNorm TAKE 100 MILLIGRAMS ORAL DAILY Vraylar 6MG Oral Capsule 06/23/2023 11/11/2023 ORAL DAILY 6 MILLIGRAMS 33719 78 RxNorm TAKE 6 MILLIGRAMS ORAL DAILY [...] Status Code Code System SLURRED SPEECH active 029042711 SNOME D-CT DIABETES 2 active 66880804 SNOMED-CT BIPOLAR DISORDER active 64677704 SNO MED-CT PTSD 09/19/2021 resolved 42052213 SNOMED-CT FIBROMYALGIA 09/19/2021 resolved 764381952 SNOMED -CT DIABETES 2 07/05/2021 resolved 36385671 SNOMED-C T FALL FROM STAIRS 06/23/2023 resolved 831267720 SN OMED-CT CLOSED FRACTURE OF RIGHT HUMERUS 06/23/2023 resolved 33624562688403302 SNOMED-CT HTN 09/19/2021 resolved 86833841 SNOMED-CT BIPOLAR DISORDER 09/19/2021 resolved 16167194 SN OMED-CT Allergies and Adverse Reactions Allergy Substance Reaction Severity Start Date Concern Status Co de Code System LISINOPRIL Active 19846 RxNorm AMBIEN Altered Mental Status (SNOMED-CT: 945192940) Active 179444 RxNorm Plan of Treatment Lab Draw 07/30/2020 Lab Draw 05/28/2020 US ABDOMEN LIMITED 1 ORGAN 05/06/2023 US RIGHT UPPER QUAD 07/05/2021 Encounters Encounter Diagnosis Start Date Code Code Sys tem Radiculopathy, lumbar region 12/28/2020 SNOMED-CT Personal Care Team Section Performer Name Performer Role Active Date Inactive Da te
--- OUTSIDE RECORDS SUMMARY | 2024-02-14 15:30 | XMS_ITS | Continuity of Care Document ---
Author Name [facility] Address [address] [place] [address] Organization [facility] Address [address] [place] [address] Care Team Providers Care Speech Therapy Teacher Name Role Phone Annette Padron Primary Care Physician Dwight Mcekon Attending Physician Unavailable Allergies, Adverse Reactions, Alerts Allergen Type Severity [...] Date Status Ankle 3 vw Min RT January 25, 2017 completed Cervical Spine 2-3 vw December 29, 2016 complete d Shoulder 2 vw Min RT December 29, 2016 completed Chest 2 vw December 21, 2016 completed Gram Stain September 17, 2016 completed Abscess Culture September 17, 2016 completed Ankle 3 vw Min RT September 06, 2016 completed Ankle 3 vw Min RT April 29, 2016 completed EMERGENCY DEPT VISIT February 06, 2016 active EMERGENCY DEPT VISIT February 06, [...] have a copy on file here at [facility]? No July 30, 2016 11:08pm Does patient have an Advanced Directive? No September 12, 2010 8:32am Pt has a Living Will? No September 12 11 8:32am Pt has a Power of Construction Equipment Operator? No September 12, 2010 8:32am Chief Complaint and Reason for Visit Encounter Admit Date Chief Complaint Reason for V isit Departed Clinical January 25, 2017 5:15pm X-RAY Hospital Discharge Instructions No known hospital discharge [...] Active Sulfamethoxazol e-Trimethoprim 1 TAB ORAL Q12H 15 02August 282016 Discontinue d Mupirocin Calcium 1 APPLIC NASAL TWICE A DAY 15 September 17, 2016 Active Levonorgestrel A ug2016 Active Labetalol December 21, 2016 Active Encounters Encounter Facility Location Admit/Visit Date Discharge/Departure Date Attending Provider Departed Clinical [facility] January 25, 2017 5:15pm January 25, 2017 5:16pm Dwight Cullen Departed Emergency [facility] Emergency Department December 29, 2016 10:51pm December 30, 2016 1:03am Departed Emergency [facility] Emergency Department December 21, 2016 12:32am December 21, 2016 1:20am Departed Emergency [facility] Emergency Department September 17, 2016 9:09pm September 17, 2016 9:54pm Departed Emergency [facility] Emergency Department September 06, 2016 6:30pm September 06, 2016 8:08pm Discharged [facility] September 03, 2016 4:30pm October 19, 2016 8:52am Merrick Mason Departed Referred [facility] Pathology August 29, 2016 9:23pm August 29, 2016 9:24pm Ghulam Fuentes Departed Referred [facility] August 29, 2016 4:52pm August 29, 2016 4:53pm Ghulam Fuentes Departed Emergency [facility] Emergency Department July 30, 2016 8:10pm July 30, 2016 11:16pm Departed Emergency [facility] Emergency Department June 05, 2016 6:17pm June 05, 2016 8:36pm Departed Emergency [facility] Emergency Department April 29, 2016 3:10pm April 29, 2016 4:27pm Departed Emergency [facility] Emergency Department February 06, 2016 4:52pm February 06, 2016 6:13pm Family History Query Response Instance Date Recorded Comment Grandparents Diabetes Mellitus Cancer November 08, 2015 11:34pm Functional Status No known functional status. Immunizations No known immunizations. Payers Payer Name Policy Type Covered Libertarian Covered Libertarian Id Relationship Subscriber Subscriber Id MEDICAID [facility] Medicaid HILDA CROWLEY [id number] Self/Same as Patient HILDA CROWLEY [id number] SELF PAY Personal [place] MEDICAID (DO NOT USE) Medicaid HILDA CROWLEY [id number] Self/Same as Patient HILDA CROWLEY [id number] Plan of Care No Known Plan of Care Information Social History Query Response Date Recorded Comment Alcohol Rare November 08, 2015 11:34pm Drugs Other November 08, 2015 11:34pm Living Situation Alone November 08, 2015 9:40pm Query Response Start Date Stop Date Smoking Status Current every day smoker Vital Signs Vital Reading Result Reference Range Collection Date/Time Height 5 ft December 21, 2016 12:35am Weight 97.976 kg December 29 11:02pm Temperature 98.2 F 97.6 F-99.6 F December 29 017 11:02pm Pulse 114 BPM 60-100 December 30 1:02am Respiration 16 RPM 12-December 30 1:02am Pulse Oximetry 98 % 95-100 December 30, 2016 1:02am Blood Pressure Systolic 148 100-140 Sept emb2016 1:02am Blood Pressure Diastolic 83 50-85 Sep tember 2016 1:02am Body Mass Index n/a
--- OUTSIDE RECORDS SUMMARY | 2024-02-14 15:30 | XMS_ITS | Encounter Summary ---
Author Organization [facility] Address [address] [place] [address] Care Team Providers Care Integration Manager Name Role Phone Unavailable Primary Care Provider Unavailabl e Encounter Details Date Type Department Care Team (Late st Contact Info) Description 01/31/2007 18:59 EDT Hospital Encounter [facility] - Other [address] [place] [address] Charlee Bentley MD [address] [place] [phone] Discharge Disposition: Auto Discharge Social History [...]
--- OUTSIDE RECORDS SUMMARY | 2024-02-14 15:30 | XMS_ITS | Encounter Summary ---
Author Organization [facility] Address [address] [place] [address] Care Team Providers Care Licensed Optician Name Role Phone Tamara Neal MD Primary Care Provider + Stephanie Garces MD Primary Care Provider +1- [phone] Encounter Details Date Type Department Care Team (Late st Contact Info) Description 12/04/2004 Results Only [facility] Employee [facility] - [address] [address] Health, Nurse Employee Social History Tobacco Use Types Packs/Day Years Used Date Smoking Tobacco: Never Assessed Sex and Gender Information Value Date Recorded Sex Assigned at Not on file Gender Identity Not on file Sexual Orientation Not on file documented as of this encounter Plan of Treatment Not on file documented as of this encounter Procedures Procedure Name Priority Date/Time Associated Diagnosis Comments RUBELLA IGG AB Routine 12/04/2004 15:19 EDT MEASLES IGG AB Routine 12/04/2004 15:19 EDT HEPATITIS B SURFACE ANTIBODY Routine 12/04/2004 15:19 EDT documented in this encounter Results * RUBELLA IGG AB (12/04/2004 15:19 EDT) Rubella IgG Scr Antibody detected [facility] 12/04/2004 15:1 9 EDT 12/04/2004 15:21 EDT Nurse Employee Health HISTORICAL LAB FOR SQ LOAD Performing Organization Address [facility] Co de Phone Number [facility] [address] [place] [address] * RUBEOLA IGG ANTIBODY (12/04/2004 15:19 EDT) Rubeola IgG Ab Antibody detected [facility] 12/04/2004 15:1 9 EDT 12/04/2004 15:21 EDT Nurse Employee Health IMMUNOLOGY AND SER OLOGY ORDERABLES Performing Organization Address [facility] Co de Phone Number [facility] [address] [place] [address] * HEPATITIS B SURFACE ANTIBODY (12/04/2004 15:19 EDT) Hepatitis B Surface Ab Neg [facility] 12/04/2004 15:1 9 EDT 12/04/2004 15:21 EDT Nurse Employee Health CHEMISTRY & BLOOD GAS ORDERABLES Performing Organization Address [facility] Co de Phone Number [facility] [address] [place] [address] documented in this encounter Visit Diagnoses Not on filedocumented in this encounter Care Teams Licensed Optician Relationship Specialty Start Date End Date Tamara Neal MD [address] [place] [phone] PCP - General 09/13/08 03/18/13 Stephanie Garces MD [address] [place] [phone] PCP - General 08/19/08 09/12/08 documented as of this encounter
--- OUTSIDE RECORDS SUMMARY | 2024-02-14 15:30 | XMS_ITS | Encounter Summary ---
Author Organization [facility] Address [address] [place] [address] Care Team Providers Care Data Governance Consultant Name Role Phone Unavailable Primary Care Provider Unavailabl e Encounter Details Date Type Department Care Team (Latest Contact Info) Description 03/06/2007 13:59 EST Hospital Encounter [facility] [address] [place] [address] Carroll Doan MD Discharge Disposition: Auto Discharge [...] Procedure Name Priority Date/Time Associated Diagnosis Comments HALFWAY ULTRASCREEN (INCLUDES SEQUENTIAL SCREEN) 03/21/2007 15:15 EST documented in this encounter Results * HALFWAY ULTRASCREEN (03/21/2007 15:15 EST) Anatomical Region Laterality Modality Other 03/21/2007 15:1 5 EST Narrative 10/18/2008 3:18 EDT 35524, Ultrascreen, Pt too early on 03/05 (out of town until 03/20) Please refer to the separate [facility] report. ??Contact Maternal Medicine. Procedure Note Charity Onofre MD - 10/18/2008 [id number], Ultrascreen, Pt too early on 03/05 (out of town until 03/20) Please refer to the separate [facility] report. Contact Maternal Medicine. Haim Méndez MD IMG [facility] ORDER YOON documented in this encounter Visit Diagnoses Not on filedocumented in this encounter
--- OUTSIDE RECORDS SUMMARY | 2024-02-14 15:30 | XMS_ITS | Continuity of Care Document ---
Author Name [facility] Address [address] [place] [address] Organization [facility] Address [address] [place] [address] Care Team Providers Care Pre Owned Sales Manager Name Role Phone Annette Maldonado Primary Care Physician Marcin Doe Attending Physician [phone] Allergies, Adverse Reactions, Alerts Allergen Type Severity Reaction Last Updated Verified Status No Known Drug Allergies Allergy February 19, 2018 Y Active Medications Active Medications Medication Dose Units Route Sig Qty Days Start Date Status Instructions Tramadol 50 MG ORAL THREE TIMES A DAY PRN For Pain November 09, 2015 Active Sitagliptin [Januvia] 100 MG ORAL DAILY November 09, 2015 Active Trazodone 200 MG ORAL BEDTIME July 30, 2016 Active Lamotrigine 200 MG ORAL DAILY Dec Active Quetiapine 100 MG ORAL TWICE A DAY January 12, 2018 Active Pioglitazone 30 MG ORAL DAILY Dec Active Prazosin 4 MG ORAL BEDTIME 2017 Active Cholecalciferol (Vitamin D3) 2000 UNITS ORAL DAILY 2017 Active Liraglutide 1.2 MG SUBCUTANEO US DAILY January 12, 2018 Active Celecoxib [Celebrex] 200 MG ORAL DAILY February 19, 2018 Active Anti-inflammator y, take with food Sennosides [Senna] 8.6 MG ORAL TWICE A DAY PRN For Constipa tion February 19, 2018 Active Over the counter medication Laxative for use if the stool softener is not sufficient Aspirin [Aspirin Low Dose] 81 MG ORAL DAILY 60 February 19, 2018 Active Over the counter medication For DVT prophylaxis Tramadol 1 - 2 TAB ORAL Q6H PRN For Pain February 19, 2018 Active Use with Tylenol (Acetaminophen) as they act synergistically Acetaminophen [Acetaminophen Extra Strength] 1 - 2 TAB ORAL Q6H 180 Octo 2017 Active Over the counter medication Docusate Sodium [Colace] 100 MG ORAL TWICE A DAY February 19, 2018 Active Over the counter medication Continue to use regularly until no longer taking narcotic pain medication Oxycodone 1 - 2 TAB ORAL Q4H PRN For Pain February 19, 2018 Active Narcotic pain medication No need to add for mild pain (i.e. less than 4/10) Take 1 tablet for moderate pain, 2 tablets for severe pain Oxycodone-Aceta minophen 1 TAB ORAL EVERY 4-6 HOURS PRN For pain, severe 6 April 06, 2018 Active Cyclobenzaprine 10 MG ORAL THREE TIMES A DAY PRN For Muscle Pain September 06, 2016 Active Simvastatin 20 MG ORAL DAILY September 17, 2016 Active Gabapentin 600 MG ORAL TWICE A DAY May 10, 2017 Active Metformin 1000 MG ORAL BID Breakfas t & Supper May 10, 2017 Active Ranitidine Hcl 300 MG ORAL DAILY J anuary 2017 Active Discontinued Medications Medication Dose Units Route Sig Qty Days Start Date Discontinued Date Status Instructions Pioglitazone 5 MG ORAL DAILY SepOctober 02, 2011 Discont inued Metformin [Glucophage] 1000 MG ORAL TWICE DAILY BEFOR E MEALS October 02, 2011 October 02, 2011 Discont inued Insulin Glargine 10 UNITS SUBCUTA NEOUS BEDTI DC October 02, 2011 October 02, 2011 Discont inued Quetiapine [Seroquel] 100 MG ORAL DAILY November 09, 2015 July 30, 2016 Discont inued Dexmethylphe nidate [Focalin Xr] 10 MG ORAL THREE TIMES A DAY November 09, 2015 January 11, 2018 Discont inued Clindamycin Hcl 300 MG ORAL FOUR TIMES DAILY 28 July 30, 2016 September 06, 2016 Discont inued Sulfamethoxa zole-Trimeth oprim [Bactrim Ds] 1 TAB ORAL TWICE A DAY 14 7 April 30, 2017 May 07, 2017 Discont inued Sulfamethoxa zole-Trimeth oprim [Bactrim Ds] 1 TAB ORAL Q12H 20 10 September 17, 2016 December 21, 2016 Discont inued Mupirocin Calcium [Bactroban Nasal] 1 APPLIC NASAL TWICE A DAY 15 14 September 17, 2016 April 02, 2017 Discont inued Levonorgestr el [Mirena] December 21, 2016 April 02, 2017 Discont inued Problem List Active Problems Medical Problem Onset Date Status TO (acute kidney injury) Active Hx of sciatica Active Diabetes mellitus, type II Activ e Anxiety Active Back pain Active Depression Active Fibromyalgia Active Hypercholesteremia Active Tobacco abuse Active Hx of suicide attempt Active Chronic pain disorder Active HTN (hypertension) Active Obesity Active Asthma Active Hypokalemia Active Hypokalemia Active Inactive/Resolved Problems Medical Problem Onset Date Status Suicidal ideations Resolved Epigastric pain Resolved Other sprain of right shoulder joint, initial en counter Inactive Procedures Procedure Date Status Shoulder 2 vw Min RT April 06, 2018 completed ARTHROSCOPY BICEPS TENODESIS February 19, 2018 ac tive SHOULDER ARTHROSCOPY/SURGERY February 19, 2018 ac tive SHOULDER ARTHROSCOPY/SURGERY February 19, 2018 ac tive MRSA Surveillance Culture February 19, 2018 compl eted US Kidney (Renal Complete) January 12, 2018 co mpleted Relevant Diagnostic Tests and/or Laboratory Data Laboratory Results Test Date/Time Result Interp. Ref. Range Result Co mment White Blood Count January 11, 2018 6:30pm 13.17 1000/mm3 High 4.8-10.8 Red Blood Count January 11, 2018 6:30pm 4.30 M/mm3 4.20-5.40 Hemoglobin January 11, 2018 6:30pm 13.5 g/dL 12.0-16.0 Hematocrit January 11, 2018 6:30pm 38.9 % 37-47 Mean Corpuscular Volume January 11, 2018 6:30pm 90.5 fL 81.0-99.0 Mean Corpuscular Hemoglobin January 11, 2018 6:30pm 31.4 pg High 27-31 Mean Corpuscular Hemoglobin Concent January 11, 2018 6:30pm 34.7 g/dL 33-37 Red Cell Distribution Width January 11, 2018 6:30pm 12.6 % 11.5-14.5 Platelet Count January 11, 2018 6:30pm 353 1000/mm3 140-440 Mean Platelet Volume January 11, 2018 6:30pm 9.4 fL 7.4-10.4 Neutrophils (%) (Auto) January 11, 2018 6:30pm 46.2 % 40.0-72.0 Lymphocytes (%) (Auto) January 11, 2018 6:30pm 40.0 % 17-45 Monocytes (%) (Auto) January 11, 2018 6:30pm 11.5 % High 3-11 Eosinophils (%) (Auto) January 11, 2018 6:30pm 1.7 % 0-3 Basophils (%) (Auto) January 11, 2018 6:30pm 0.4 % 0-1 Immature Granulocyte % (Auto) January 11, 2018 6:30pm 0.2 % 0-1 Neutrophils # (Auto) January 11, 2018 6:30pm 6.09 1000/mm3 1.4-6.5 Lymphocytes # (Auto) January 11, 2018 6:30pm 5.27 1000/mm3 High 1.2-3.4 Monocytes # (Auto) January 11, 2018 6:30pm 1.51 1000/mm3 High 0.0-0.8 Eosinophils # (Auto) January 11, 2018 6:30pm 0.22 1000/mm3 0.0-0.7 Basophils # (Auto) January 11, 2018 6:30pm 0.05 1000/mm3 0.0-0.1 Absolute Immature Granulocyte (auto January 11, 2018 6:30pm 0.0 0-1 Differential Method January 11, 2018 6:30pm Automated Urine Color January 12, 2018 3:16am yellow Urine Clarity January 12, 2018 3:16am clear Urine pH January 12, 2018 3:16am 5.0 Urine Specific Reading January 12, 2018 3:16am 1.015 Urine Protein January 12, 2018 3:16am Negative mg/dL Urine Glucose (UA) January 12, 2018 3:16am Normal mg/dL Urine Ketones January 12, 2018 3:16am Negative Urine Nitrate January 12, 2018 3:16am Negative Urine Bilirubin January 12, 2018 3:16am Negative mg/dL Urine Urobilinogen January 12, 2018 3:16am Normal mg/dL Urine Leukocyte Esterase January 12, 2018 3:16am Negative WBC/uL Urine Blood January 12, 2018 3:16am Negative NEETA/uL Urine RBC January 12, 2018 3:16am None seen /hpf Urine WBC January 12, 2018 3:16am 0-2 /hpf Urine Squamous Epithelial Cells January 12, 2018 3:16am 2+ /hpf Urine Bacteria January 12, 2018 3:16am 1+ /hpf High Urine Hyaline Casts January 12, 2018 3:16am 0-2 /lpf High Urine Mucus January 12, 2018 3:16am Present Urine Creatinine January 12, 2018 3:16am 109.2 mg/dL No Reference Range established. Urine Sodium January 12, 2018 3:16am 22.0 mmol/L No Reference Range established. Sodium Level January 12, 2018 2:45pm 136 mmol/L Low 137-145 Potassium Level January 12, 2018 2:45pm 4.7 mmol/L 3.6-5.0 Delta: 2.9 on 01/12/180650 Chloride Level January 12, 2018 2:45pm 103 mmol/L 98-107 Carbon Dioxide Level January 12, 2018 2:45pm 25 mmol/L 22-30 Anion Gap January 12, 2018 2:45pm 8 7-16 Blood Urea Nitrogen January 12, 2018 2:45pm 13 mg/dL 7-17 Creatinine January 12, 2018 2:45pm 0.91 mg/dL 0.52-1.04 Glomerular Filtration Rate Calc January 12, 2018 2:45pm > 60 mL/min 60.0- Glucose Level January 12, 2018 2:45pm 167 mg/dL High 70-100 Calcium Level January 12, 2018 2:45pm 9.5 mg/dL 8.4-10.2 Delta: 8.5 on 01/12/180650 Calcium Adjusted for Albumin January 11, 2018 6:30pm 9.0 mg/dL 8.4-10.2 Magnesium Level January 11, 2018 6:30pm 1.7 mg/dL 1.6-2.3 Total Bilirubin January 11, 2018 6:30pm 0.7 mg/dL 0.2-1.3 Aspartate Amino Transf (AST/SGOT) January 11, 2018 6:30pm 32 U/L 14-36 Alanine Aminotransferase (ALT/SGPT) January 11, 2018 6:30pm 34 U/L 9-52 Creatine Kinase January 11, 2018 6:30pm 286 U/L High 30-137 Total Protein January 11, 2018 6:30pm 7.5 g/dL 6.3-8.2 Albumin January 11, 2018 6:30pm 4.8 g/dL 3.5-5.0 Alkaline Phosphatase January 11, 2018 6:30pm 61 U/L 38-126 Thyroid Stimulating Hormone (TSH) January 12, 2018 6:50am 0.266 mlU/L Low 0.47-4.68 The results of this assay can be falsely decreased in patients who consume Biotin. Hemoglobin A1c Percent January 12, 2018 6:50am 6.77 % <5.7%: Normal 5.7%-6.4%: Prediabetes >=6.5%: Diagnostic for diabetes Goals for Glycemic Control in Diabetes (ADA 2018) <7.0%: A1c target for non adults with diabetes. More or less stringent glycemic goals may be appropriate for individual patients. <7.5%: A1c target for children and adolescents with type I diabetes. A lower goal is reasonable if it can be achieved without excessive hypoglycemia. Estimated Average Glucose mg/dL January 12, 2018 6:50am 148 mg/dL Microbiology Results Procedure Source Result Collection Date/Time Result Date/Time MRSA Surveillance Culture Nares NO METHICILLIN RESISTANT STAPH AUREUS (MRSA) ISOLATED February 19, 2018 10:50am Advance Directives Advance Directive Response Recorded Date/ Time Do we [place] [facility] July 30, 2016 11:08pm Does patient have an Advanced Directive? No September 12, 2010 8:32am Pt has a Living Will? No September 12 8:32am Pt has a Power of Pantograph Watcher? No September 12, 2010 8:32am Chief Complaint and Reason for Visit Encounter Admit Date Chief Complaint Reason for V isit Discharged Recurring April 18, 2018 1:45pm Rt shoulder scope DOS 02/19/18 Hospital Discharge Instructions No known hospital discharge instructions. Hospital Discharge Medications Medication Dose Units Route Sig Qty Days Order Date Status Instructions Pioglitazone 5 MG ORAL DAILY Sep Discontinu ed Metformin 1000 MG ORAL TWICE DAILY BEFORE MEALS October 02, 2011 Discontinu ed Insulin Glargine 10 UNITS SUBCUTANE OUS BEDTIME October 02, 2011 Discontinu ed Tramadol 50 MG ORAL THREE TIMES A DAY PRN For Pain November 09, 2015 Active Quetiapine 100 MG ORAL DAILY November 09, 2015 Discontinu ed Dexmethylpheni date 10 MG ORAL THREE TIMES A DAY November 09, 2015 Discontinu ed Sitagliptin 100 MG ORAL DAILY November 09, 2015 Active Trazodone 200 MG ORAL BEDTIME July 30, 2016 Active Clindamycin Hcl 300 MG ORAL FOUR TIMES DAILY July 30, 2016 Discontinu ed Sulfamethoxazo le-Trimethopri m 1 TAB ORAL TWICE A DAY 14 7 April 30, 2017 Discontinu ed Lamotrigine 200 MG ORAL DAILY Dec Active Quetiapine 100 MG ORAL TWICE A DAY January 12, 2018 Active Pioglitazone 30 MG ORAL DAILY Dec Active Prazosin 4 MG ORAL BEDTIME er 2017 Active Cholecalcifero l (Vitamin D3) 2000 UNITS ORAL DAILY mber 2017 Active Liraglutide 1.2 MG SUBCUTANE OUS DAILY January 12, 2018 Active Celecoxib 200 MG ORAL DAILY 30 r 2017 Active Anti-inflammato ry, take with food Sennosides 8.6 MG ORAL TWICE A DAY PRN For Constip ation February 19, 2018 Active Over the counter medication Laxative for use if the stool softener is not sufficient Aspirin 81 MG ORAL DAILY 60 February 19, 2018 Active Over the counter medication For DVT prophylaxis Tramadol 1 - 2 TAB ORAL Q6H PRN For Pain February 19, 2018 Active Use with Tylenol (Acetaminophen) as they act synergistically Acetaminophen 1 - 2 TAB ORAL Q6H 180 Oc 2017 Active Over the counter medication Docusate Sodium 100 MG ORAL TWICE A DAY February 19, 2018 Active Over the counter medication Continue to use regularly until no longer taking narcotic pain medication Oxycodone 1 - 2 TAB ORAL Q4H PRN For Pain February 19, 2018 Active Narcotic pain medication No need to add for mild pain (i.e. less than 4/10) Take 1 tablet for moderate pain, 2 tablets for severe pain Oxycodone-Acet aminophen 1 TAB ORAL EVERY 4-6 HOURS PRN For pain, severe 6 April 06, 2018 Active Cyclobenzaprin e 10 MG ORAL THREE TIMES A DAY PRN For Muscle Pain September 06, 2016 Active Simvastatin 20 MG ORAL DAILY September 17, 2016 Active Sulfamethoxazo le-Trimethopri m 1 TAB ORAL Q12H 20 September 17, 2016 Discontinu ed Mupirocin Calcium 1 APPLIC NASAL TWICE A DAY 15 September 17, 2016 Discontinu ed Levonorgestrel A ugust 2016 Discontinu ed Gabapentin 600 MG ORAL TWICE A DAY May 10, 2017 Active Metformin 1000 MG ORAL BID Breakfa st & Supper May 10, 2017 Active Ranitidine Hcl 300 MG ORAL DAILY J anuary 2017 Active Encounters Encounter Facility Location Admit/Visit Date Discharge/Departure Date Attending Provider Departed Referred [facility] OBGYN May 12, 2018 5:32pm May 12, 2018 5:33pm Noemi Luo Discharged Recurring [facility] April 18, 2018 1:45pm May 30, 2018 8:55am Marcin Doe Departed Emergency [facility] Emergency Department April 06, 2018 9:21pm April 06, 2018 11:05pm Departed Surgical Day Care [facility] Surgical Services February 19, 2018 10:25am February 19, 2018 5:06pm Marcin Doe Discharged Inpatient [facility] Progressive Care Unit January 11, 2018 8:24pm January 12, 2018 4:59pm Santa Hassan Family History Query Response Instance Date Recorded Comment Grandparents Diabetes Mellitus Cancer January 11, 2018 10:50pm Functional Status No known functional status. Immunizations No known immunizations. Payers Payer Name Policy Type Covered Alliance Party Covered Alliance Party Id Relationship Subscriber Subscriber Id MEDICAID [facility] Medicaid [employer] [id number] Self/Same as Patient [employer] [id number] SELF PAY Personal [place] MEDICAID (DO NOT USE) Medicaid HILDA [address] [id number] Self/Same as Patient [employer] [id number] Plan of Care No Known Plan of Care Information Social History Query Response Date Recorded Comment Alcohol Rare January 11, 2018 10:50pm Drugs Other January 11, 2018 10:50pm Living Situation Alone November 08, 2015 9:40pm Query Response Start Date Stop Date Smoking Status Current every day smoker April 29 Vital Signs Vital Reading Result Reference Range Collection Date/Time Height 5 ft February 19 5:03pm Weight 104.326 kg April 06 9:22pm Temperature 97.4 F 97.6 F-99.6 F February 19 5:03pm Pulse 87 BPM 60-100 April 06 8 11:00pm Respiration 16 RPM 04-21April 06 11:00pm Pulse Oximetry 97 % 95-100 April 06 018 11:00pm Blood Pressure Systolic 123 100-140 Dece mb2017 11:00pm Blood Pressure Diastolic 65 50-85 Dec ember 2017 11:00pm Body Mass Index 41.5 February 19, 2018 5:03pm
--- OUTSIDE RECORDS SUMMARY | 2024-02-14 15:31 | XMS_ITS | Continuity of Care Document ---
Author Name [facility] Address [address] [place] [address] Organization [facility] Address [address] [place] [address] Care Team Providers Care Quality Control Assistant Name Role Phone PCP, Not Given Primary Care Physician Unavailab Ghulam Johnson Attending Physician Allergies, Adverse Reactions, Alerts Allergen Type Severity Reaction Last Updated Verified Status NO KNOWN DRUG ALLERGIES Allergy October 02, 2011 Y Active *MRSA Allergy May 30, 2015 Active Medications Active Medications Medication Dose Units Route Sig Qty Start Date St atus Tramadol 50 mg [...] ORAL TWICE A DAY November 09, 2015 Acti ve Trazodone July 30, 2016 Active Clindamycin Hcl 300 MG ORAL FOUR TIME S DAILY 28 July 30, 2016 Active Discontinued Medications Medication Dose Units Route Sig Qty Start Date Discontinued Date Status Pioglitazone 5 mg ORAL DAILY October 02, 2011 October 02, 2011 Discontinued Metformin [Glucophage] 1000 mg ORAL TWICE DAILY BEFORE MEALS October 02, 2011 October 02, 2011 Discontinued Insulin Glargine 10 units SUBCUTANEOUS BEDTIME October 02, 2011 October 02, 2011 Discontinued Quetiapine [Seroquel] 100 mg ORAL DAILY November 09, 2015 July 30, 2016 Discontinued Problem List Active Problems Medical [...] Suicidal ideations Resolved Procedures Procedure Date Status EMERGENCY DEPT VISIT June 05, 2016 active Ankle 3 vw Min RT April 29, 2016 completed EMERGENCY DEPT VISIT April 29, 2016 active X-RAY EXAM OF ANKLE April 29, 2016 active EMERGENCY DEPT VISIT February 06, 2016 active DRAINAGE OF SKIN ABSCESS February 06, 2016 active COMPLETE CBC W/AUTO DIFF WBC November 12, 2015 act david ASSAY OF UREA NITROGEN November 12, 2015 active ASSAY GLUCOSE BLOOD QUANT November 12, 2015 active ASSAY OF CREATININE November 12, 2015 active URINE TEST November 12, 2015 active URINALYSIS AUTO W/O SCOPE November 12, 2015 active ELECTROLYTE PANEL November 12, 2015 active ROUTINE VENIPUNCTURE November 12, 2015 active APPLY FOREARM SPLINT November 12, 2015 active Blood Culture November 09, [address] Head w/o Contrast November 08, 2015 completed Reason for Referral Reason for Referral Date Referral was Provided Provider Office Contact Location Relevant Diagnostic Tests and/or Laboratory Data Laboratory [...] 279 mosm/kg 275-295 Test Performed by: [place] [address] Director Of Financial Aid: Marlon Morales MD , Ph D Calcium Level November 09, 2015 7:10am 8.5 mg/dL 8.4-10.2 Delta: 9.7 on 11/08/15-1819 Calcium Adjusted for Albumin November 09, 2015 [...] Source Result Collection Date/Time Resu lt Date/Time Blood Culture Blood NO GROWTH AFTER 5 DAYS November 08 016 7:15am Advance Directives Advance Directive Response Recorded Date/ Time Do we have a copy on file here at [facility] [place] [facility]? No July 30, 2016 11:08pm Does patient have an Advanced Directive? No September 12, 2010 8:32am Pt has a Living Will? No September 12 8:32am Pt has a Power of Armor Reconnaissance Vehicle Crewman? No September 12, 2010 8:32am Hospital Discharge Instructions No known hospital discharge instructions. Hospital Discharge Medications Medication Dose Units Route Sig Qty Days Order Date Status Instructions Pioglitazone 5 mg ORAL DAILY Sep Discontinue d Metformin 1000 mg ORAL TWICE DAILY BEFORE MEALS October 02, 2011 Discontinue d Insulin Glargine 10 units SUBCUTANEOU S BEDTIME October 02, 2011 Discontinue d Tramadol 50 mg ORAL Q6H PRN For Pain November 09, 2015 Active Quetiapine 100 mg ORAL DAILY November 09, 2015 Discontinue d Dexmethylphenida te 10 mg ORAL THREE TIMES A DAY November 09, 2015 Active Sitagliptin 100 mg ORAL DAILY November 09, 2015 Active Metformin Hydrochloride 1000 mg ORAL TWICE A DAY November 09, 2015 Active Gabapentin 600 mg ORAL TWICE A DAY November 09, 2015 Active Trazodone July 30, 2016 Active Clindamycin Hcl 300 MG ORAL FOUR TIMES DAILY 28 July 30, 2016 Active Encounters Encounter Facility Location Admit/Visit Date Discharge/Departure Date Attending Provider Departed Referred [facility] Pathology August 29, 2016 9:23pm August 29, 2016 9:24pm Ghulam Fuentes Departed Referred [facility] August 29, 2016 4:52pm August 29, 2016 4:53pm Ghulam Fuentes Departed Emergency [facility] Emergency Department July 30, 2016 8:10pm July 30, 2016 11:16pm Departed Emergency [facility] Emergency Department June 05, 2016 6:17pm June 05, 2016 8:36pm Departed Emergency [facility] Emergency Department April 29, 2016 3:10pm April 29, 2016 4:27pm Departed Emergency [facility] Emergency Department February 06, 2016 4:52pm February 06, 2016 6:13pm Departed Emergency [facility] Emergency Department November 12, 2015 4:49pm November 12, 2015 7:02pm Discharged Inpatient [facility] Intensive Care Unit November 08, 2015 9:46pm November 09, 2015 7:20pm Gregorio Bryant Family History Query Response Instance Date Recorded Comment Grandparents Diabetes Mellitus Cancer November 08, 2015 11:34pm Functional Status No known functional status. Immunizations No known immunizations. Payers Payer Name Policy Type Covered Republican Covered Republican Id Relationship Subscriber Subscriber Id [place]ICA[place] Medicaid HILDA [place] [id number] Self/Same as Patient HILDA [place] [id number] SELF PAY Personal [place] MEDICAID (DO NOT USE) Medicaid [place]DA [place] [id number] Self/Same as Patient HILDA [place] [id number] Plan of Care No Known Plan of Care Information Social History Query Response Date Recorded Comment Alcohol Rare November 08, 2015 11:34pm Drugs Other November 08, 2015 11:34pm Living Situation Alone November 08, 2015 9:40pm Query Response Start Date Stop Date Smoking Status Current Every Day Smoker Light Tobacco Smoker Vital Signs Vital Reading Result Reference Range Collection Date/Time Height 5 ft November 08, 2015 9 :40pm Weight 91.626 kg July 30, 2016 8 :44pm Temperature 97.4 F 97.6 F-99.6 F July 30, 2016 8:44pm Pulse 98 BPM 60-100 July 30, 2016 8 :44pm Respiration 18 RPM 12-24 July 30, 2016 8 :44pm Pulse Oximetry 98 % 95-100 July 30, 2016 8:44pm Blood Pressure Systolic 127 100-140 Apri l 2016 8:44pm Blood Pressure Diastolic 79 50-85 Apr il 2016 8:44pm Body Mass Index 34.0 November 07 6 9:40pm
--- OUTSIDE RECORDS SUMMARY | 2024-02-14 15:31 | XMS_ITS | Continuity of Care Document ---
Author Name [facility] Address [address] [place] [address] Organization [facility] Address [address] [place] [address] Care Team Providers Care Event Attendant Name Role Phone Annette Padron Primary Care Physician Unavailab le Allergies, Adverse Reactions, Alerts No known allergies. Medications Active Medications Medication Dose Units Route Sig Qty Days Start Date St atus Tramadol 50 MG ORAL Q6H PRN For Pain November 09, 2015 Active Dexmethylphenidate [Focalin Xr] 10 MG ORAL THREE TIMES A DAY November 09, 2015 Active Sitagliptin [Januvia] 100 MG ORAL DAILY Ju 2015 Active Metformin Hydrochloride [Metformin 1000 mg tab] 1000 MG ORAL TWICE A DAY November 09, 2015 Active Gabapentin [Gabapentin 300 mg cap] 600 MG ORAL TWICE A DAY November 09, 2015 Active Trazodone July 30, 2016 Active Sulfamethoxazole-Trimethop rim [Bactrim Ds] 1 TAB ORAL TWICE A DAY 14 7 J anuary 2017 Active Cyclobenzaprine 10 MG ORAL THREE AMOS ES A DAY September 06, 2016 Active Simvastatin 20 MG ORAL DAILY September 17, 2016 Active Labetalol December 21, 2016 Active Discontinued Medications Medication Dose Units Route Sig Qty Days Start Date Discontinued Date Status Pioglitazone 5 MG ORAL DAILY SepOctober 02, 2011 Discontinue d Metformin [Glucophage] 1000 MG ORAL TWICE DAILY BEFORE MEALS October 02, 2011 October 02, 2011 Discontinue d Insulin Glargine 10 UNITS SUBCUTANEO US BEDTIME October 02, 2011 October 02, 2011 Discontinue d Quetiapine [Seroquel] 100 MG ORAL DAILY November 09, 2015 July 30, 2016 Discontinue d Clindamycin Hcl 300 MG ORAL FOUR TIMES DAILY 28 July 30, 2016 September 06, 2016 Discontinue d Sulfamethoxazol e-Trimethoprim [Bactrim Ds] 1 TAB ORAL Q12H 20 10 September 17, 2016 December 21, 2016 Discontinue d Mupirocin Calcium [Bactroban Nasal] 1 APPLIC NASAL TWICE A DAY 15 14 September 17, 2016 April 02, 2017 Discontinue d Levonorgestrel [Mirena] December 21, 2016 April 02, 2017 Discontinue d Problem List Active Problems Medical Problem Onset Date Status Encephalopathy, toxic Active Hx of sciatica Active Diabetes mellitus, type II Activ e Anxiety Active LFT elevation Active Back pain Active Depression Active Fibromyalgia Active Hypercholesteremia Active QT prolongation Active Tobacco abuse Active Hx of suicide attempt Active Chronic pain disorder Active HTN (hypertension) Active Obesity Active Asthma Active Hypokalemia Active Inactive/Resolved Problems Medical Problem Onset Date Status Suicidal ideations Resolved Epigastric pain Resolved Procedures Procedure Date Status MRI RT Upper Ext Jt w/o Cont April 17, 2017 c ompleted NOBG US Transvaginal Non OB April 08, 2017 ac tive Shoulder 2 vw Min RT April 02, 2017 completed Ankle 3 vw Min RT January 25, 2017 completed Cervical Spine 2-3 vw December 29, 2016 complete d Shoulder 2 vw Min RT December 29, 2016 completed Chest 2 vw December 21, 2016 completed Gram Stain September 17, 2016 completed Abscess Culture September 17, 2016 completed Ankle 3 vw Min RT September 06, 2016 completed Relevant Diagnostic Tests and/or Laboratory Data Microbiology Results Procedure Source Result Collection Date/Time Resu lt Date/Time Abscess Culture Nose Staphylococcus Aureus-Mrsa September 17, 2016 9:40pm September 20, 2016 7:28am Gram Stain Nose No results entered September 17, 2016 9:40 pm Advance Directives Advance Directive Response Recorded Date/ Time Do we have a copy on file here at [facility]? No July 30, 2016 11:08pm Does patient have an Advanced Directive? No September 12, 2010 8:32am Pt has a Living Will? No September 12 11 8:32am Pt has a Power of E Tailer? No September 12, 2010 8:32am Chief Complaint and Reason for Visit Encounter Admit Date Chief Complaint Reason for V isit Departed Emergency April 30, 2017 12:05pm [facility] Hospital Discharge Instructions Additional Discharge Instructions You ramos ve an infected cyst/polyp of the left nare most likely from poking it open with a Q-tip tip. Take the Bactrim as prescribed until gone. Put warm moist compresses over your nose 4-5 times a day for the next 3-4 days. take ibuprofen and/or Tylenol as needed for discomfort. No Instructions/Education Pr ovided Hospital Discharge Medications Medication Dose Units Route Sig Qty Days Order Date Status Instructions Pioglitazone 5 MG ORAL DAILY Sep Discontinu ed Metformin 1000 MG ORAL TWICE DAILY BEFORE MEALS October 02, 2011 Discontinu ed Insulin Glargine 10 UNITS SUBCUTANEO US BEDTIME October 02, 2011 Discontinu ed Tramadol 50 MG ORAL Q6H PRN For Pain November 09, 2015 Active Quetiapine 100 MG ORAL DAILY November 09, 2015 Discontinu ed Dexmethylphenid ate 10 MG ORAL THREE TIMES A DAY November 09, 2015 Active Sitagliptin 100 MG ORAL DAILY November 09, 2015 Active Metformin Hydrochloride 1000 MG ORAL TWICE A DAY November 09, 2015 Active Gabapentin 600 MG ORAL TWICE A DAY November 09, 2015 Active Trazodone July 30, 2016 Active Clindamycin Hcl 300 MG ORAL FOUR TIMES DAILY July 30, 2016 Discontinu ed Sulfamethoxazol e-Trimethoprim 1 TAB ORAL TWICE A DAY 14 April 30, 2017 Active Cyclobenzaprine 10 MG ORAL THREE TIMES A DAY September 06, 2016 Active Simvastatin 20 MG ORAL DAILY September 17, 2016 Active Sulfamethoxazol e-Trimethoprim 1 TAB ORAL Q12H 20 August 282016 Discontinu ed Mupirocin Calcium 1 APPLIC NASAL TWICE A DAY 15 14 September 17, 2016 Discontinu ed Levonorgestrel A ug2016 Discontinu ed Labetalol December 21, 2016 Active Encounters Encounter Facility Location Admit/Visit Date Discharge/Departure Date Attending Provider Departed Emergency [facility] Emergency Department April 30, 2017 12:05pm April 30, 2017 2:11pm Departed Clinical [facility] April 17, 2017 5:57pm April 17, 2017 5:58pm Jasper Vanegas Departed [facility] PACKING ROOM WORKER April 08, 2017 3:15pm April 08, 2017 3:16pm Milton Galvez Departed Emergency [facility] Emergency Department April 02, 2017 8:33pm April 02, 2017 9:27pm Departed [facility] January 25, 2017 5:15pm January 25, 2017 5:16pm Dwight Cullen Departed Emergency [facility] Emergency Department December 29, 2016 10:51pm December 30, 2016 1:03am Departed Emergency [facility] Emergency Department December 21, 2016 12:32am December 21, 2016 1:20am Departed Emergency [facility] Emergency Department September 17, 2016 9:09pm September 17, 2016 9:54pm Departed Emergency [facility] Emergency Department September 06, 2016 6:30pm September 06, 2016 8:08pm Discharged Recurring [facility] September 03, 2016 4:30pm October 19, 2016 8:52am Merrick Mason Departed Referred [facility] Pathology August 29, 2016 9:23pm August 29, 2016 9:24pm Ghulam Fuentes Departed Referred [facility] OBGYN August 29, 2016 4:52pm August 29, 2016 4:53pm Ghulam Fuentes Departed Emergency [facility] Emergency Department July 30, 2016 8:10pm July 30, 2016 11:16pm Departed Emergency [facility] Emergency Department June 05, 2016 6:17pm June 05, 2016 8:36pm Family History Query Response Instance Date Recorded Comment Grandparents Diabetes Mellitus Cancer November 08, 2015 11:34pm Functional Status No known functional status. Immunizations No known immunizations. Payers Payer Name Policy Type Covered Alliance Party Covered Alliance Party Id Relationship Subscriber Subscriber Id [place] Medicaid [facility] [id number] Self/Same as Patient [facility] [id number] SELF PAY Personal [place] MEDICAID (DO NOT USE) Medicaid [place] [id number] [facility] [id number] Plan of Care No Known Plan of [...] 5 ft December 21, 2016 12:35am Weight 86.636 kg April 30, 2017 12:08pm Temperature 96.8 F 97.6 F-99.6 F April 30 8 12:08pm Pulse 97 BPM 60-100 April 30, 2017 12:08pm Respiration 18 RPM 12-24 April 30, 2017 12:08pm Pulse Oximetry 97 % 95-100 April 30 12:08pm Blood Pressure Systolic 170 100-140 Terry hurst 2017 12:08pm Blood Pressure Diastolic 80 50-85 Roshan rivera 2017 12:08pm Body Mass Index n/a
--- OUTSIDE RECORDS SUMMARY | 2024-02-14 15:31 | XMS_ITS | Continuity of Care Document ---
Author Name [facility] Address [address] [place] [id number] Organization [facility] Address [address] [place] [address] Care Team Providers Care Stave Saw Operator Name Role Phone Annette Padron Primary Care Physician Milton Fitzpatrick Attending Physician Allergies, Adverse Reactions, Alerts No known allergies. Medications Active Medications Medication Dose Units Route Sig Qty Days Start Date St atus Tramadol 50 MG ORAL THREE TIMES A DAY PRN For Pain November 09, 2015 Active Dexmethylphenidate [Focalin Xr] 10 MG ORAL THREE TIMES A DAY November 09, 2015 Active Sitagliptin [Januvia] 100 MG ORAL DAILY Ju ly 2015 Active Trazodone 200 MG ORAL BEDTIME July 30, 2016 Active Cyclobenzaprine 10 MG ORAL THREE AMOS ES A DAY September 06, 2016 Active Simvastatin 20 MG ORAL DAILY September 17, 2016 Active Labetalol 100 MG ORAL DAILY December 21, 2016 Active Gabapentin 600 MG ORAL TWICE A DAY J anuary 2017 Active Metformin 1000 MG ORAL TWICE A DAY nukenna 2017 Active Ranitidine Hcl 300 MG ORAL DAILY J anuary 2017 Active Discontinued Medications Medication Dose Units Route Sig Qty Days Start Date Discontinued Date Status Pioglitazone 5 MG ORAL DAILY SepOctober 02, 2011 Discontinu ed Metformin [Glucophage] 1000 MG ORAL TWICE DAILY BEFORE MEALS October 02, 2011 October 02, 2011 Discontinu ed Insulin Glargine 10 UNITS SUBCUTANEO US BEDTIME October 02, 2011 October 02, 2011 Discontinu ed Quetiapine [Seroquel] 100 MG ORAL DAILY November 09, 2015 July 30, 2016 Discontinu ed Clindamycin Hcl 300 MG ORAL FOUR TIMES DAILY 28 July 30, 2016 September 06, 2016 Discontinu ed Sulfamethoxazol e-Trimethoprim [Bactrim Ds] 1 TAB ORAL TWICE A DAY 14 7 April 30, 2017 May 07, 2017 Discontinu ed Sulfamethoxazol e-Trimethoprim [Bactrim Ds] 1 TAB ORAL Q12H 20 10 September 17, 2016 December 21, 2016 Discontinu ed Mupirocin Calcium [Bactroban Nasal] 1 APPLIC NASAL TWICE A DAY 15 14 September 17, 2016 April 02, 2017 Discontinu ed Levonorgestrel [Mirena] December 21, 2016 April 02, 2017 Discontinu ed Problem List Active Problems Medical Problem Onset [...] Epigastric pain Resolved Procedures Procedure Date Status Provider(s) Hysteroscopy, with dilation and curettage of uterus, and endometrial ablation May 17, 2017 completed Milton Galvez MRSA Surveillance Culture May 17, 2017 active MRI RT Upper Ext Jt w/o Cont April 17, 2017 complet ed NOBG US Transvaginal Non OB April 08, 2017 active Shoulder 2 vw Min RT April 02, 2017 completed Ankle 3 vw Min RT January 25, 2017 completed Cervical Spine 2-3 vw December 29, 2016 completed Shoulder 2 vw Min RT December 29, 2016 completed Chest 2 vw December 21, 2016 completed Gram Stain September 17, 2016 completed Abscess Culture September 17, 2016 completed Ankle 3 vw Min RT September 06, 2016 completed Relevant Diagnostic Tests and/or Laboratory Data Laboratory Results Test Date/Time Result Interp. Ref. Range Result Co mment Urine Test May 17, 2017 11:15am Negative Microbiology Results Procedure Source Result Collection Date/Time Resu lt Date/Time Abscess Culture Nose Staphylococcus Aureus-Mrsa September 17, 2016 9:40pm September 20, 2016 7:28am Gram Stain Nose No results entered September 17, 2016 9:40 pm Advance Directives Advance Directive Response Recorded Date/ Time Do we have a copy on file here at [facility] [place] [place]? No July 30, 2016 11:08pm Does patient have an Advanced Directive? No September 12, 2010 8:32am Pt has a Living Will? No September 12 8:32am Pt has a Power of Pressure Controller? No September 12, 2010 8:32am Chief Complaint and Reason for Visit Encounter Admit Date Chief Complaint Reason for V nicole Departed Surgical Day Care May 17, 2017 11:10am Excessive bleeding in the premenopausal period Hospital Discharge Instructions No known hospital discharge [...] TWICE A DAY 14 April 30, 2017 Discontinu ed Cyclobenzaprine 10 MG ORAL THREE TIMES A DAY September 06, 2016 Active Simvastatin 20 MG ORAL DAILY September 17, 2016 Active Sulfamethoxazol e-Trimethoprim 1 TAB ORAL Q12H 20 10 August 282016 Discontinu ed Mupirocin Calcium 1 APPLIC NASAL TWICE A DAY 15 14 September 17, 2016 Discontinu ed Levonorgestrel A ug2016 Discontinu ed Labetalol 100 MG ORAL DAILY December 21, 2016 Active Gabapentin 600 MG ORAL TWICE A DAY May 10, 2017 Active Metformin 1000 MG ORAL TWICE A DAY May 10, 2017 Active Ranitidine Hcl 300 MG ORAL DAILY J anuary 2017 Active Encounters Encounter Facility Location Admit/Visit Date Discharge/Departure Date Attending Provider Departed Surgical Day Care [facility] Surgical Services May 17, 2017 11:10am May 17, 2017 3:20pm Milton Galvez Departed Emergency [facility] Emergency Department April 30, 2017 12:05pm April 30, 2017 2:11pm Departed Clinical [facility] April 17, 2017 5:57pm April 17, 2017 5:58pm Jasper Vanegas Departed Clinical [facility] 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 FIELD 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 April 08, 2017 3:15pm April 08, 2017 3:16pm Milton Galvez Departed Emergency [facility] Emergency Department April 02, 2017 8:33pm April 02, 2017 9:27pm Departed Clinical [facility] January 25, 2017 5:15pm January 25, 2017 5:16pm Dwight Cullen Departed Emergency [facility] Emergency Department December 29, 2016 10:51pm December 30, 2016 1:03am Departed Emergency [facility] Emergency Department December 21, 2016 12:32am December 21, 2016 1:20am Departed Emergency [facility] Emergency Department September 17, 2016 9:09pm September 17, 2016 9:54pm Departed Emergency [facility] Emergency Department September 06, 2016 6:30pm September 06, 2016 8:08pm Discharged Recurring [facility] September 03, 2016 4:30pm October 19, 2016 8:52am Merrick Mason Departed Referred [facility] Pathology August 29, 2016 9:23pm August 29, 2016 9:24pm Ghulam Fuentes Departed Referred [facility] August 29, 2016 4:52pm August 29, 2016 4:53pm Ghulam Fuentes Departed Emergency [facility] Emergency Department July 30, 2016 8:10pm July 30, 2016 11:16pm Departed Emergency [facility] Emergency Department June 05, 2016 6:17pm June 05, 2016 8:36pm Family History Query Response Instance Date Recorded Comment Grandparents Diabetes Mellitus Cancer November 08, 2015 11:34pm Functional Status No known functional status. Immunizations No known immunizations. Payers Payer Name Policy Type Covered Alliance Party Covered Alliance Party Id Relationship Subscriber Subscriber Id [place] Medicaid [facility] [id number] Self/Same as Patient [facility] [id number] SELF PAY Personal [place] MEDICAID (DO NOT USE) [facility] [id number] Self/Same as Patient [facility] [id number] Plan of Care No Known Plan of Care Information Social History Query Response Date Recorded Comment Alcohol Rare November 08, 2015 11:34pm Drugs Other November 08, 2015 11:34pm Living Situation Alone November 08, 2015 9:40pm Query Response Start Date Stop Date Smoking Status Light tobacco smoker April 29, 1995 Vital Signs Vital Reading Result Reference Range Collection Date/Time Height 5 ft May 17 8 11:41am Weight 87.09 kg May 17 8 11:41am Temperature 98 F 97.6 F-99.6 F May 17 3:20pm Pulse 94 BPM 60-100 May 17 8 3:20pm Respiration 16 RPM 12-May 17 8 2:29pm Pulse Oximetry 97 % 95-100 May 17 018 3:20pm Blood Pressure Systolic 146 100-140 Terry hurst 2017 3:20pm Blood Pressure Diastolic 103 50-85 Roshan annette 2017 3:20pm Body Mass Index 37.5 May 17, 2017 11:41am
--- OUTSIDE RECORDS SUMMARY | 2024-02-14 15:31 | XMS_ITS | Continuity of Care Document ---
Author Name [facility] Address [address] [place] [id number] Organization [facility] Address [address] [place] [address] Care Team Providers Care Loss Control Technician Name Role Phone Annette Padron Primary Care [...] 279 mosm/kg 275-295 Test Performed by: [place] [address] Internship Coordinator: Marlon Morales MD , Ph D Calcium [...] have a copy on file here at [facility] [place]? No July 30, 2016 11:08pm Does patient have an Advanced Directive? No September 12, 2010 8:32am Pt has a Living Will? No September 12 8:32am Pt has a Power of Latex Thread Machine Operator? No September 12, 2010 8:32am Chief Complaint and Reason for Visit Encounter Admit Date Chief Complaint Reason for V isit Departed Emergency July 30, 2016 8:10pm POSSIBLE CYST IN NOSE Hospital Discharge Instructions No known hospital discharge [...] Date Discharge/Departure Date Attending Provider Departed Emergency [facility] Emergency Department July 30, 2016 8:10pm July 30, 2016 11:16pm Departed Emergency [facility] Emergency Department June 05, 2016 6:17pm June 05, 2016 8:36pm Departed Emergency [facility] [...] Covered Democrat Id Relationship Subscriber Subscriber Id [place] Medicaid HILDA [place] [id number] Self/Same as Patient HILDA [place] [id number] SELF PAY Personal [place] MEDICA[place] (DO NOT USE) Medicaid HILDA [place] [id number] Self/Same as Patient [place] [id number] Plan of Care No Known Plan of [...] 2016 8:44pm Blood Pressure Systolic 127 100-140 Apr2016 8:44pm Blood Pressure Diastolic 79 50-85 Apr 2016 8:44pm Body Mass Index 34.0 November 07 201 6 9:40pm
--- OUTSIDE RECORDS SUMMARY | 2024-02-14 15:31 | XMS_ITS | Continuity of Care Document ---
Author Name [facility] Address [address] [place] [id number] Organization [facility] Address [address] [place] [address] Care Team Providers Care Bridge Painter Helper Name Role Phone Annette Maldonado Primary Care Physician [phone] Noemi Luo Attending Physician Allergies, Adverse Reactions, Alerts Allergen [...] EVERY 4-6 HOURS PRN For pain, severe April 06, 2018 Active Cyclobenzaprine 10 MG [...] Insulin Glargine 10 UNITS SUBCUTA NEOUS BEDTI ME October 02, 2011 October 02, 2011 Discont [...] shoulder joint, initial en counter Inactive Procedures No known history of procedures. Relevant Diagnostic Tests and/or Laboratory Data No known relevant diagnostic tests, laboratory data, and/or discharge summary. Advance Directives Advance Directive Response Recorded Date/ Time Do we have a copy on file here at [facility]? No July 30, 2016 11:08pm Does patient have an Advanced Directive? No September 12, 2010 8:32am Pt has a Living Will? No September 12 11 8:32am Pt has a Power of Pharmacist Hospital? No September 12, 2010 8:32am Hospital Discharge [...] Prazosin 4 MG ORAL BEDTIME 2017 Active Cholecalcifero l (Vitamin D3) 2000 UNITS ORAL DAILY 2017 Active Liraglutide 1.2 MG SUBCUTANE OUS [...] - 2 TAB ORAL Q6H 180 Oc tob2017 Active Over the counter medication Docusate Sodium [...] le-Trimethopri m 1 TAB ORAL Q12H 20 10 September 17, 2016 Discontinu ed Mupirocin Calcium [...] Date Discharge/Departure Date Attending Provider Departed Referred [facility] OBGYN May 12, 2018 5:32pm May 12, 2018 5:33pm Noemi Luo Registered Recurring [facility] April 18, 2018 1:45pm Marcin Doe Family History Query Response Instance Date Recorded Comment Grandparents Diabetes Mellitus Cancer January 11, 2018 10:50pm Functional Status No known functional status. Immunizations No known immunizations. Payers Payer Name Policy Type Covered Democrat Covered Democrat Id Relationship Subscriber Subscriber Id MEDICAID [facility] Medicaid HILDA [place] [id number] Self/Same as Patient [place]DA [place] [id number] SELF PAY Personal [place] MEDICA[place] (DO NOT USE) Medicaid HILDA [place] [id number] Self/Same as Patient [place] [id number] Plan of Care No Known Plan of Care Information Social History Query Response Date Recorded Comment Alcohol Rare January 11, 2018 10:50pm Drugs Other January 11, 2018 10:50pm Living Situation Alone November 08, 2015 9:40pm Query Response Start Date Stop Date Smoking Status Current every day smoker April 29 6 Vital Signs No known vital signs results.
--- OUTSIDE RECORDS SUMMARY | 2024-02-14 15:31 | XMS_ITS | Continuity of Care Document ---
Author Name [facility] Address [address] [place] [id number] Organization [facility] Address [address] [place] [id number] Care Team Providers Care Top And Seat Cover Fitter Name Role Phone Annette Maldonado Primary Care Physician [phone] Marcin Doe Attending Physician Allergies, Adverse Reactions, Alerts Allergen [...] moderate pain, 2 tablets for severe pain Cyclobenzaprine 10 MG ORAL THREE TIMES A [...] TWICE A DAY 14 April 30, 2017 May 07, 2017 Discont inued Sulfamethoxa zole-Trimeth oprim [Bactrim Ds] 1 TAB ORAL Q12H 20 September 17, 2016 December 21, 2016 Discont inued Mupirocin Calcium [Bactroban Nasal] 1 APPLIC NASAL TWICE A DAY 15 September 17, 2016 April 02, 2017 Discont [...] pain Resolved Procedures Procedure Date Status Provider(s) Repair of rotator cuff of right shoulder with biceps tendon repair February 19, 2018 completed Marcin Doe MD Orthopedist Hysteroscopy, with dilation and curettage of uterus, and endometrial ablation May 17, 2017 completed Milton Galvez MRSA Surveillance Culture February 19, 2018 active US Kidney (Renal Complete) January 12, 2018 complete d MRSA Surveillance Culture May 17, 2017 completed MRI RT Upper Ext Jt w/o Cont April 17, 2017 complet ed NOBG US Transvaginal Non OB April 08, 2017 active Shoulder 2 vw Min RT April 02, 2017 completed Relevant Diagnostic Tests and/or Laboratory Data [...] January 12, 2018 3:16am 5.0 Urine Specific [place] January 12, 2018 3:16am 1.015 Urine Protein [...] Mucus January 12, 2018 3:16am Present Urine Test May 17, 2017 11:15am Negative Urine Creatinine January 12, 2018 3:16am 109.2 [...] Date/Time Result Date/Time MRSA Surveillance Culture Nares Staphylococcus Aureus-Mrsa May 17, 2017 12:00pm May 20, 2017 7:42am Advance Directives Advance Directive Response Recorded Date/ Time Do we have a copy on file here at [facility]? No July 30, 2016 11:08pm Does patient have an Advanced Directive? No September 12, 2010 8:32am Pt has a Living Will? No September 12 11 8:32am Pt has a Power of Lamp Tester And Inspector? No September 12, 2010 8:32am Chief Complaint and Reason for Visit Encounter Admit Date Chief Complaint Reason for V isit Departed Surgical Day Care February 19, 2018 10:25am Adhesive capsulitis of right shoulder,[facility] Discharge Instructions No known hospital discharge [...] FOUR TIMES DAILY 28 July 30, 2016 Discontinu ed Sulfamethoxazo le-Trimethopri m 1 TAB ORAL TWICE A DAY 14 7 April 30, 2017 Discontinu ed Lamotrigine 200 MG ORAL DAILY Dec Active Quetiapine 100 MG ORAL TWICE A DAY January 12, 2018 Active Pioglitazone 30 MG ORAL DAILY Sep tember 2017 Active Prazosin 4 MG ORAL BEDTIME er 2017 Active Cholecalcifero l (Vitamin D3) 2000 UNITS ORAL DAILY mb2017 Active Liraglutide 1.2 MG SUBCUTANE OUS DAILY January 12, 2018 Active Celecoxib 200 MG ORAL DAILY 30 r 2017 Active Anti-inflammato ry, take with food Sennosides 8.6 MG ORAL TWICE A DAY PRN For Constip ation February 19, 2018 Active Over the counter medication Laxative for use if the stool softener is not sufficient Aspirin 81 MG ORAL DAILY February 19, 2018 Active Over the counter [...] moderate pain, 2 tablets for severe pain Cyclobenzaprin e 10 MG ORAL THREE TIMES [...] Date Attending Provider Departed Surgical Day Care [facility] Surgical Services February 19, 2018 10:25am February 19, 2018 5:06pm Marcin Doe Discharged Inpatient [facility] Progressive Care Unit January 11, 2018 8:24pm January 12, 2018 4:59pm Santa Hassan Departed Surgical Day Care [facility] Surgical Services May 17, 2017 11:10am May 17, 2017 3:20pm Milton Galvez Departed Emergency [facility] Emergency Department April 30, 2017 12:05pm April 30, 2017 2:11pm Departed Clinical [facility] April 17, 2017 5:57pm April 17, 2017 5:58pm Jasper Vanegas Departed Clinical [facility]ILD & ADOLESCENT PSYCHIATRIST April 08, 2017 3:15pm April 08, 2017 3:16pm Milton Galvez Departed Emergency [facility] Emergency Department April 02, 2017 8:33pm April 02, 2017 9:27pm Family History Query Response Instance Date Recorded Comment Grandparents Diabetes Mellitus Cancer January 11, 2018 10:50pm Functional Status No known functional status. Immunizations No known immunizations. Payers Payer Name Policy Type Covered Republican Covered Republican Id Relationship Subscriber Subscriber Id [place] Medicaid [id number] [id number] Self/Same as Patient HILDAB[employer] Private LimitedCARLINE [id number] SELF PAY Personal [place] MEDICAID (DO NOT USE) Medicaid HILDA CARLINE [id number] Self/Same as Patient HILDA CARLINE [id number] Plan of Care No Known Plan of [...] Height 5 ft February 19 5:03pm Weight 96.615 kg February 19 5:03pm Temperature 97.4 F 97.6 F-99.6 F February 19 18 5:03pm Pulse 104 BPM 60-100 February 19 8 5:03pm Respiration 16 RPM -February 19 8 2:47pm Pulse Oximetry 94 % 95-100 February 19 018 5:03pm Blood Pressure Systolic 141 100-140 Octo velvet 2017 5:03pm Blood Pressure Diastolic 96 50-85 Oct susan 2017 5:03pm Body Mass Index 41.5 February 19, 2018 5:03pm
--- OUTSIDE RECORDS SUMMARY | 2024-02-14 15:31 | XMS_ITS | Continuity of Care Document ---
Author Name [facility] Address [address] [place] [address] Organization [facility] Address [address] [place] [address] Care Team Providers Care Hat Stock Laminating Machine Operator Name Role Phone Annette Padron Primary [...] Date Status MRSA Screen May 26, 2015 completed ANKLE 3VW MIN LT April 08, 2015 [...] No results entered June 13, 2014 3:00pm MRSA Screen Leg Staphylococcus Aureus-Mrsa May 26, 2015 4:25pm May 28, 2015 11:31am Advance Directives Advance Directive Response Recorded Date/ Time Does the patient have a living will? No September 12, 2010 8:32am Does the patient have an advanced directive? No September 12, 2010 8:32am Power of Herb Digger? No September 12, 2010 8:32am Hospital Discharge [...] Date Discharge Date Attending Provider Departed Emergency [facility] Emergency Department May 29, 2015 2:24pm May 29, 2015 3:33pm Departed Emergency [facility] Emergency Department May 28, 2015 1:10pm May 28, 2015 3:00pm Departed Emergency [facility] Emergency Department May 27, 2015 3:36pm May 27, 2015 6:45pm Departed Emergency [facility] Emergency Department May 26, 2015 4:01pm May 26, 2015 4:50pm Registered Clinical [facility] Orthopedics April 08, 2015 11:01am Swapnil Galarza Registered Clinical [facility] Orthoped[facility] March 08, 2015 12:02pm Swapnil Galarza Registered Clinical [facility] Orthopedics February 23, 2015 2:30pm Swapnil Galarza Departed Emergency [facility] Emergency Department February 14, 2015 8:22pm February 14, 2015 11:02pm Departed Emergency [facility] Emergency Department February 12, 2015 4:35pm February 12, 2015 7:02pm Departed Emergency [facility] Emergency Department November 30, 2014 5:26pm November 30, 2014 7:30pm Departed Emergency [facility] Emergency Department August 16, 2014 9:26pm August 16, 2014 10:25pm Departed Emergency [facility] Emergency Department August 06, 2014 4:03pm August 06, 2014 4:55pm Departed Emergency [facility] Emergency Department June 13, 2014 1:31pm June 13, 2014 3:27pm Departed Emergency [facility] Emergency Department May 31, 2014 4:56pm May 31, 2014 8:11pm Functional Status No known functional status. Immunizations No known immunizations. Payers Payer Name Policy Type Covered Green Party Covered Green Party Id Relationship Subscriber Subscriber Id [place] MEDICAID [facility] [id number] SELF/SAME PATIENT [facility] [id number] Plan of Care No known plan of care. Social History No known social history. Vital Signs Vital Reading Result Reference Range Collection Date/Time Height 5 ft April 29, 2014 5:13am Weight n/a Temperature n/a Pulse n/a Respiration n/a Pulse Oximetry n/a Blood Pressure Systolic n/a Blood Pressure Diastolic n/a Body Mass Index n/a
--- OUTSIDE RECORDS SUMMARY | 2024-02-14 15:31 | XMS_ITS | Continuity of Care Document ---
Author Name [facility] Address [address] [place] [id number] Organization [facility] Address [address] [place] [address] Care Team Providers Care Kiln Operator Name Role Phone Kamar Meléndez Admitting Physician Santa Hassan Attending Physician [phone] Out of Town, Provider Primary Care Physician Jhoana vailable Allergies, Adverse Reactions, Alerts No known allergies. [...] Quetiapine 100 MG ORAL TWICE A DAY S eptemb2017 Active Pioglitazone 30 MG ORAL DAILY Dec Active Prazosin 4 MG ORAL BEDTIME er 2017 Active Dexmethylphenidate 20 MG ORAL EVERY MORNING January 12, 2018 Active Dexmethylphenidate 10 MG ORAL 1200,1500 January 12, 2018 Active Cholecalciferol (Vitamin D3) 2000 UNITS ORAL DAILY er 2017 Active Liraglutide 1.2 MG SUBCUTANEOUS DAILY January 12, 2018 Active Cyclobenzaprine 10 MG ORAL THREE AMOS ES A DAY PRN For Muscle Pain September 06, 2016 Active Simvastatin 20 MG ORAL DAILY September 17, 2016 Active Gabapentin 600 MG ORAL TWICE A DAY J anuary 2017 Active Metformin 1000 MG ORAL BID Breakfast & Supper May 10, 2017 Active Ranitidine Hcl 300 MG ORAL DAILY J anuary 2017 Active Discontinued Medications Medication Dose Units Route Sig Qty Days Start Date Discontinued Date Status Pioglitazone 5 MG ORAL DAILY Merrick 2011October 02, 2011 Discontinu ed Metformin [Glucophage] 1000 MG ORAL TWICE DAILY BEFORE MEALS October 02, 2011 October 02, 2011 Discontinu ed Insulin Glargine 10 UNITS SUBCUTANEO US BEDTIME October 02, 2011 October 02, 2011 Discontinu ed Quetiapine [Seroquel] 100 MG ORAL DAILY November 09, 2015 July 30, 2016 Discontinu ed Dexmethylphenid ate [Focalin Xr] 10 MG ORAL THREE TIMES A DAY November 09, 2015 January 11, 2018 Discontinu ed Clindamycin Hcl 300 MG ORAL FOUR TIMES DAILY July 30, 2016 September 06, 2016 Discontinu ed Sulfamethoxazol e-Trimethoprim [Bactrim Ds] 1 TAB ORAL TWICE A DAY 14 April 30, 2017 May 07, 2017 Discontinu ed Sulfamethoxazol e-Trimethoprim [Bactrim Ds] 1 TAB ORAL Q12H 20 September 17, 2016 December 21, 2016 Discontinu ed Mupirocin Calcium [Bactroban Nasal] 1 APPLIC NASAL TWICE A DAY 15 September 17, 2016 April 02, 2017 Discontinu [...] ablation May 17, 2017 completed Milton Galvez US Kidney (Renal Complete) January 12, 2018 complete d MRSA Surveillance Culture May 17, 2017 completed MRI RT Upper Ext Jt w/o Cont April 17, 2017 complet ed NOBG US Transvaginal Non OB April 08, 2017 active Shoulder 2 vw Min RT April 02, 2017 completed Ankle 3 vw Min RT January 25, 2017 completed Relevant Diagnostic Tests and/or Laboratory [...] January 12, 2018 3:16am 5.0 Urine Specific [place] January 12, 2018 3:16am 1.015 Urine Protein [...] 2:45pm 4.7 mmol/L 3.6-5.0 Delta: 2.9 on 01/12/18-0650 Chloride Level January 12, 2018 2:45pm 103 [...] 2:45pm 9.5 mg/dL 8.4-10.2 Delta: 8.5 on 01/12/18-0650 Calcium Adjusted for Albumin January 11, 2018 [...] have a copy on file here at [facility]? No July 30, 2016 11:08pm Does patient have an Advanced Directive? No September 12, 2010 8:32am Pt has a Living Will? No September 12 8:32am Pt has a Power of Emt/Dispatcher? No September 12, 2010 8:32am Chief Complaint and Reason for Visit Encounter Admit Date Chief Complaint Reason for V isit Discharged Inpatient January 11, 2018 8:24pm Weak TO (acute kidney injury) Hypokalemia Hospital Discharge Instructions No known hospital discharge [...] DAILY 28 July 30, 2016 Discontinu ed Sulfamethoxazol e-Trimethoprim 1 TAB ORAL TWICE A DAY 14 April 30, 2017 Discontinu ed Lamotrigine 200 MG ORAL DAILY Dec Active Quetiapine 100 MG ORAL TWICE A DAY January 12, 2018 Active Pioglitazone 30 MG ORAL DAILY Sep 2017 Active Prazosin 4 MG ORAL BEDTIME [facility] 2017 Active Dexmethylphenid ate 20 MG ORAL EVERY MORNING January 12, 2018 Active Dexmethylphenid ate 10 MG ORAL 1200,15 00 January 12, 2018 Active Cholecalciferol (Vitamin D3) 2000 UNITS ORAL DAILY [facility] 2017 Active Liraglutide 1.2 MG SUBCUTANEO US DAILY January 12, 2018 Active Cyclobenzaprine 10 MG ORAL THREE [...] Location Admit/Visit Date Discharge/Departure Date Attending Provider Discharged Inpatient [facility] Progressive Care Unit January 11, 2018 8:24pm January 12, 2018 4:59pm Santa Hassan Departed Surgical Day Care [facility] Surgical Services May 17, 2017 11:10am May 17, 2017 3:20pm Milton Galvez Departed Emergency [facility] Emergency Department April 30, 2017 12:05pm April 30, 2017 2:11pm Departed Clinical [facility] April 17, 2017 5:57pm April 17, 2017 5:58pm Jasper Vanegas Departed Clinical [facility] SECOND TIME WORKER April 08, 2017 3:15pm April 08, 2017 3:16pm Milton Galvez Departed Emergency [facility] Emergency Department April 02, 2017 8:33pm April 02, 2017 9:27pm Departed Clinical [facility] January 25, 2017 5:15pm January 25, 2017 5:16pm Dwight Cullen Encounter Diagnosis Onset Date TO (acute kidney injury) Hypokalemia Family History Query Response Instance Date Recorded Comment Grandparents Diabetes Mellitus Cancer January 11, 2018 10:50pm Functional Status No known functional status. Immunizations No known immunizations. Payers Payer Name Policy Type Covered Alliance Party Covered Alliance Party Id Relationship Subscriber Subscriber Id [place] Medicaid HILDA CARLINE [id number] Self/Same as Patient HILDA CARLINE [id number] SELF PAY Personal [place] MEDICAID (DO NOT USE) Medicaid HILDA CARLINE [id number] Self/Same [facility] [id number] Plan of Care Instructions Hypokalemia (DC) Acute Kidney Failure (DC) Social History Query Response Date Recorded Comment Alcohol Rare January 11, 2018 10:50pm Drugs Other January 11, 2018 10:50pm Living Situation Alone November 08, 2015 9:40pm Query Response Start Date Stop Date Smoking Status Current every day smoker Vital Signs Vital Reading Result Reference Range Collection Date/Time Height 5 ft January 11, 2 018 8:27pm Weight 93 kg January 11 2 018 8:27pm Temperature 99.1 F 97.6 F-99.6 F January 12, 2018 1:56pm Pulse 93 BPM 60-100 January 12, 2 018 1:56pm Respiration 16 RPM 12-24 Lucia 16, 2 018 1:56pm Pulse Oximetry 96 % 95-100 January 12, 2018 1:56pm Blood Pressure Systolic 117 100-140 Sept [facility]2017 1:56pm Blood Pressure Diastolic 73 50-85 Sep 2017 1:56pm Body Mass Index 40.0 December 8:27pm
--- OUTSIDE RECORDS SUMMARY | 2024-02-14 15:31 | XMS_ITS | Continuity of Care Document ---
Author Name [facility] Address [address] [place] [address] Organization [facility] Address [address] [place] [address] Care Team Providers Care Resort Housekeeper Name Role Phone PCP, of Choice Primary Care Physician Agathaab Kamar Huffman Admitting Physician Kamar Meléndez Attending Physician Allergies, Adverse Reactions, Alerts No [...] ORAL DAILY September 17, 2016 Active Labetalol 200 MG ORAL DAILY December 21 7 Active Gabapentin 600 MG ORAL TWICE A DAY J anuary 2017 Active Metformin 1000 MG ORAL TWICE A DAY [place] 2017 Active Ranitidine Hcl 300 MG ORAL [...] Date Status TO (acute kidney injury) Active Encephalopathy, toxic Active Hx of sciatica Active [...] Galvez MRSA Surveillance Culture May 17, 2017 completed [...] Ref. Range Result Comment White Blood Count January 11, 2018 6:30pm [...] Method January 11, 2018 6:30pm Automated Urine Test May 17, 2017 11:15am Negative Sodium Level January 11, 2018 6:30pm 132 mmol/L Low 137-145 Potassium Level January 11, 2018 6:30pm 3.1 mmol/L Low 3.6-5.0 Chloride Level January 11, 2018 6:30pm 95 mmol/L Low 98-107 Carbon Dioxide Level January 11, 2018 6:30pm 21 mmol/L Low 22-30 Anion Gap January 11, 2018 6:30pm 16 7-16 Blood Urea Nitrogen January 11, 2018 6:30pm 22 mg/dL High 7-17 Creatinine January 11, 2018 6:30pm 3.92 mg/dL High 0.52-1.04 Glomerular Filtration Rate Calc January 11, 2018 6:30pm 13 mL/min Low 60.0- Glucose Level January 11, 2018 6:30pm 152 mg/dL High 70-100 Calcium Level January 11, 2018 6:30pm 9.4 mg/dL 8.4-10.2 Calcium Adjusted for Albumin January 11, 2018 [...] January 11, 2018 6:30pm 61 U/L 38-126 Microbiology Results Procedure Source Result Collection Date/Time Result Date/Time MRSA Surveillance Culture Nares Staphylococcus Aureus-Mrsa May 17, 2017 12:00pm May 20, 2017 7:42am Advance Directives Advance Directive Response Recorded Date/ Time Do we have a copy on file here at [facility]? No July 30, 2016 11:08pm Does patient have an Advanced Directive? No September 12, 2010 8:32am Pt has a Living Will? No September 12 11 8:32am Pt has a Power of Loom Mechanic? No September 12, 2010 8:32am Chief Complaint and Reason for Visit Encounter Admit Date Chief Complaint Reason for V isit Admitted Inpatient January 11, 2018 8:24pm Weak TO (acute kidney injury) Hypokalemia Hospital Discharge Instructions No known hospital discharge instructions. Hospital Discharge Medications Medication Dose Units Route Sig Qty Days Order Date Status Instructions Pioglitazone 5 MG ORAL DAILY Sep Discontinu ed Metformin 1000 MG ORAL TWICE DAILY BEFORE MEALS October 02, 2011 Discontinu ed Insulin Glargine 10 UNITS SUBCUTANEO BEDTIME October 02, 2011 Discontinu ed Tramadol [...] ed Levonorgestrel A ugust 2016 Discontinu ed Labetalol 200 MG ORAL DAILY December 21, 2016 Active Gabapentin 600 MG ORAL TWICE A DAY May 10, 2017 Active Metformin 1000 MG ORAL TWICE A DAY May 10, 2017 Active Ranitidine Hcl 300 MG ORAL DAILY J anuary 2017 Active Encounters Encounter Facility Location Admit/Visit Date Discharge/Departure Date Attending Provider Admitted Inpatient [facility] Progressive Care Unit January 11, 2018 8:24pm Kamar Meléndez Departed Surgical Day Care [facility] Surgical Services May 17, 2017 11:10am May 17, 2017 3:20pm Milton Galvez Depart Emergency [facility] Emergency Department April 30, 2017 12:05pm April 30, 2017 2:11pm Departed Clinical [facility] April 17, 2017 5:57pm April 17, 2017 5:58pm Jasper Vanegas Departed [facility] MACHINIST GENERAL April 08, 2017 3:15pm April 08, 2017 3:16pm Milton Galvez Depart Emergency [facility] Emergency Department April 02, 2017 8:33pm [facility] 02, [facility] January 25, 2017 5:15pm January 25, 2017 5:16pm Dwight Cullen Encounter Diagnosis Onset Date TO (acute kidney injury) Hypokalemia Family History Query Response Instance Date Recorded Comment Grandparents Diabetes Mellitus Cancer November 08, 2015 11:34pm Functional Status No known functional status. Immunizations No known immunizations. Payers Payer Name Policy Type Covered Alliance Party Covered Alliance Party Id Relationship Subscriber Subscriber Id MEDICAID [facility] Medicaid HILDA CROWLEY [id number] Self/Same as Patient HILDA CROWLEY [id number] SELF PAY Personal [place] MEDICAID (DO NOT USE) Medicaid HILDA CROWLEY [id number] Self/Same as Patient HILDA CROWLEY [id number] Plan of Care No Known Plan of [...] 5 ft May 17 8 11:41am Weight 95.254 kg January 11 2 018 5:44pm Temperature 98.1 F 97.6 F-99.6 F January 11, 2018 6:50pm Pulse 93 BPM 60-100 January 11 2 018 5:44pm Respiration 17 RPM -January 11 2 018 5:44pm Pulse Oximetry 96 % 95-100 January 11, 2018 5:44pm Blood Pressure Systolic 133 100-140 Dec 5:44pm Blood Pressure Diastolic 79 50-85 Dec 5:44pm Body Mass Index 37.5 May 17, 2017 11:41am
--- OUTSIDE RECORDS SUMMARY | 2024-02-14 15:31 | XMS_ITS | Continuity of Care Document ---
Author Name [facility] Address [address] [place] [id number] Organization [facility] Address [address] [place] [address] Care Team Providers Care Craft Artist Name Role Phone Annette Maldonado Primary Care Physician Noemi Luo Attending Physician Allergies, Adverse Reactions, [...] en counter Inactive Procedures Procedure Date Status Provider(s) Hysteroscopy, with dilation and curettage of uterus, and endometrial ablation May 17, 2017 completed Milton Galvez MD, MD Shoulder 2 vw Min RT April 06, 2018 completed ARTHROSCOPY BICEPS TENODESIS February 19, 2018 active SHOULDER ARTHROSCOPY/SURGERY February 19, 2018 active SHOULDER ARTHROSCOPY/SURGERY February 19, 2018 active MRSA Surveillance Culture February 19, 2018 completed US Kidney (Renal Complete) January 12, 2018 complete d MRSA Surveillance Culture May 17, 2017 completed Relevant Diagnostic Tests and/or Laboratory [...] January 12, 2018 3:16am 5.0 Urine Specific [place] January 12, 2018 3:16am 1.015 Urine Protein [...] 2:45pm 9.5 mg/dL 8.4-10.2 Delta: 8.5 on 01/12/1850 Calcium Adjusted for Albumin January 11, 2018 [...] 17, 2017 12:00pm May 20, 2017 7:42am MRSA Surveillance Culture Nares NO METHICILLIN RESISTANT STAPH AUREUS (MRSA) ISOLATED February 19, 2018 10:50am Advance Directives Advance Directive Response Recorded Date/ Time Do we have a copy on file here at [facility]? No July 30, 2016 11:08pm Does patient have an Advanced Directive? No September 12, 2010 8:32am Pt has a Living Will? No September 12 8:32am Pt has a Power of Night Filler? No September 12, 2010 8:32am Hospital Discharge [...] 2017 Active Prazosin 4 MG ORAL BEDTIME 2017 Active Cholecalcifero l (Vitamin D3) 2000 UNITS ORAL DAILY 2017 Active Liraglutide 1.2 MG SUBCUTANE OUS DAILY January 12, 2018 Active Celecoxib 200 MG ORAL DAILY 2017 Active Anti-inflammato ry, take with food [...] For pain, severe April 06, 2018 Active Cyclobenzaprin e 10 [...] Date Discharge/Departure Date Attending Provider Departed Referred [facility] OBGYN May 12, 2018 5:32pm May 12, 2018 5:33pm Noemi Luo Registered Recurring [facility] April 18, 2018 1:45pm Marcin Doe Departed Emergency [facility] Emergency Department April 06, 2018 9:21pm April 06, 2018 11:05pm Departed Surgical Day Care [facility] Surgical Services February 19, 2018 10:25am February 19, 2018 5:06pm Marcin Doe Discharged Inpatient [facility] Progressive Care Unit January 11, 2018 8:24pm January 12, 2018 4:59pm Santa Hassan Departed Surgical Day Care [facility] Surgical Services May 17, 2017 11:10am May 17, 2017 3:20pm Milton Galvez Family History Query Response Instance Date Recorded Comment Grandparents Diabetes Mellitus Cancer January 11, 2018 10:50pm Functional Status No known functional status. Immunizations No known immunizations. Payers Payer Name Policy Type Covered Constitution Party Covered Constitution Party Id Relationship Subscriber Subscriber Id [place] Medicaid HILDALola Pirindola [id number] Self/Same as Patient HILDA [employer] [id number] SELF PAY Personal [place] MEDICAID (DO NOT USE) Medicaid HILDA CARLINE [id number] Self/Same as Patient HILDA CARLINE [id number] Plan of Care No Known Plan of [...]
--- OUTSIDE RECORDS SUMMARY | 2024-02-14 15:31 | XMS_ITS | Continuity of Care Document ---
Author Name [facility] Address [address] [place] [address] Organization [facility] Address [address] [place] [address] Care Team Providers Care Terminal Makeup Operator Name Role Phone Annette Padron Primary Care Physician Merrick Bojorquez Attending Physician Unavailable Allergies, Adverse Reactions, Alerts [...] Active Sitagliptin [Januvia] 100 mg ORAL DAILY November 09, 2015 Active Metformin Hydrochloride [Metformin 1000 mg tab] 1000 mg ORAL TWICE A DAY November 09, 2015 Active Gabapentin [Gabapentin 300 mg cap] 600 mg ORAL TWICE A DAY November 09, 2015 Active Trazodone July 30, 2016 Active Cyclobenzaprine 10 mg ORAL THREE AMOS ES A DAY September 06, 2016 Active Simvastatin 20 mg ORAL DAILY September 17, 2016 Active Sulfamethoxazole-Trimethop rim [Bactrim Ds] 1 TAB ORAL Q12H 20 September 17, 2016 Ac tive Mupirocin Calcium [Bactroban Nasal] 1 APPLIC NASAL TWICE A DAY 15 September 17 17 Active Discontinued Medications Medication Dose Units Route [...] July 30, 2016 September 06, 2016 Discontinued Problem List Active Problems Medical [...] Suicidal ideations Resolved Procedures Procedure Date Status Gram Stain September 17, 2016 completed Abscess [...] 279 mosm/kg 275-295 Test Performed by: [facility] [place] [id number] Portal Administrator: Marlon Morales MD , Ph D Calcium [...] AFTER 5 DAYS November 08 016 7:15am Abscess Culture Nose Staphylococcus Aureus-Mrsa September 17, 2016 9:40pm September 20, 2016 7:28am Gram Stain Nose No results entered September 17, 2016 9:40 pm Advance Directives Advance Directive Response Recorded Date/ Time Do we have a copy on file here at [facility]? No July 30, 2016 11:08pm Does patient have an Advanced Directive? No September 12, 2010 8:32am Pt has a Living Will? No September 12 11 8:32am Pt has a Power of Bacteriology Teacher? No September 12, 2010 8:32am Chief Complaint and Reason for Visit Encounter Admit Date Chief Complaint Reason for V isit Discharged Recurring September 03, 2016 4:30pm rt shoulder pa in and lt hip Hospital Discharge Instructions No known hospital discharge [...] mg ORAL DAILY September 17, 2016 Active Sulfamethoxazole -Trimethoprim 1 TAB ORAL Q12H 20 September 17, 2016 Active Mupirocin Calcium 1 APPLIC NASAL TWICE A DAY 15 14 September 17, 2016 Active Encounters Encounter Facility Location Admit/Visit Date Discharge/Departure Date Attending Provider Departed Emergency [facility] Emergency Department September 17, 2016 9:09pm September 17, 2016 9:54pm Departed Emergency [facility] Emergency Department September 06, 2016 6:30pm September 06, 2016 8:08pm Discharged Recurring [facility] September 03, 2016 4:30pm October 19, 2016 8:52am MarlonMerrick Departed Referred [facility] Pathology August 29, 2016 9:23pm August 29, 2016 9:24pm Ghulam Fuentes Departed Referred [facility] August 29, 2016 4:52pm August 29, 2016 4:53pm Ghulam Fuentes Departed Emergency [facility] Emergency Department July 30, 2016 8:10pm July 30, 2016 11:16pm Departed Emergency [facility] Emergency Department June 05, 2016 6:17pm June 05, 2016 8:36pm Departed Emergency [facility] Emergency Department April 29, 2016 3:10pm April 29, 2016 4:27pm Departed Emergency [facility] Emergency Department February 06, 2016 4:52pm February 06, 2016 6:13pm Departed Emergency [facility] Emergency Department November 12, 2015 4:49pm November 12, 2015 7:02pm Discharged Inpatient [facility] Intensive Care Unit November 08, 2015 9:46pm November 09, 2015 7:20pm Gregorio Bryant Family History Query Response Instance Date Recorded Comment Grandparents Diabetes Mellitus Cancer November 08, 2015 11:34pm Functional Status No known functional status. Immunizations No known immunizations. Payers Payer Name Policy Type Covered Democrat Covered Democrat Id Relationship Subscriber Subscriber Id [place] Medicaid [facility] [id number] [facility] [id number] SELF PAY Personal [place] MEDICAID (DO NOT USE) Medicaid HILDA CARLINE [id number] Self/Same as Patient HILDA [place] [id number] Plan of Care No Known Plan of Care Information Social History Query Response Date Recorded Comment Alcohol Rare November 08, 2015 11:34pm Drugs Other November 08, 2015 11:34pm Living Situation Alone November 08, 2015 9:40pm Query Response Start Date Stop Date Smoking Status Current Every Day Smoker Light Tobacco Smoker Vital Signs Vital Reading Result Reference Range Collection Date/Time Height 5 ft September 06, 2016 6: 34pm Weight 92.533 kg September 17, 2016 9: 15pm Temperature 98.0 F 97.6 F-99.6 F September 17, 2016 9 :15pm Pulse 87 BPM 60-100 September 17, 2016 9: 15pm Respiration 18 RPM 12-24 September 17, 2016 9: 15pm Pulse Oximetry 100 % 95-100 September 17, 2016 9:15pm Blood Pressure Systolic 151 100-140 September 17, 2016 9:15pm Blood Pressure Diastolic 77 50-85 September 17, 2016 9:15pm Body Mass Index 34.0 November 07 201 6 9:40pm
--- OUTSIDE RECORDS SUMMARY | 2024-02-14 15:31 | XMS_ITS | Continuity of Care Document ---
Author Name [facility] Address [address] [place] [address] Organization [facility] Address [address] [place] [address] Care Team Providers Care Final Inspector Paper Name Role Phone Annette Maldonado Primary Care [...] January 12, 2018 3:16am 5.0 Urine Specific [place] January 12, 2018 3:16am 1.015 Urine Protein [...] have a [place] [facility] No July 30, 2016 11:08pm Does patient have an Advanced Directive? No September 12, 2010 8:32am Pt has a Living Will? No September 12 8:32am Pt has a Power of Black Leather Buffer? No September 12, 2010 8:32am Hospital Discharge [...] Date Discharge/Departure Date Attending Provider Departed Referred [facility] OBGYN May 12, 2018 5:32pm May 12, 2018 5:33pm Noemi Luo Registered Recurring [facility] April 18, 2018 1:45pm Marcin Doe Departed Emergency [facility] Emergency Department April 06, 2018 9:21pm April 06, 2018 11:05pm Departed Surgical Day Care [facility] Surgical Services February 19, 2018 10:25am February 19, 2018 5:06pm Marcin Doe Discharged Inpatient [facility] Progressive Care Unit January 11, 2018 8:24pm January 12, 2018 4:59pm Santa Hassan Departed Surgical Day Care [facility] May 17, 2017 11:10am May 17, 2017 3:20pm Milton Galvez Family History Query Response Instance Date Recorded Comment Grandparents Diabetes Mellitus Cancer January 11, 2018 10:50pm Functional Status No known functional status. Immunizations No known immunizations. Payers Payer Name Policy Type Covered Alliance Party Covered Alliance Party Id Relationship Subscriber Subscriber Id [place] Medicaid [id number] [id number] Self/Same as Patient HILDA [employer] [id number] SELF PAY Personal [place] MEDICA[place] (DO NOT USE) Medicaid HILDA CARLINE [id number] Self/Same as Patient HILDA CARLINE [id number] Plan of Care No Known Plan of [...]
--- OUTSIDE RECORDS SUMMARY | 2024-02-14 15:31 | XMS_ITS | Continuity of Care Document ---
Author Name [facility] Address [address] [place] [address] Organization [facility] Address [address] [place] [address] Care Team Providers Care International Tax Manager Name Role Phone Annette Maldonado Primary Care Physician Allergies, Adverse Reactions, Alerts Allergen Type [...] Active Problems Medical Problem Onset Date Status OT (acute kidney injury) Active Hx of sciatica Active Diabetes mellitus, type II Activ e Anxiety Active Back pain Active Depression Active Fibromyalgia Active Hypercholesteremia Active Tobacco abuse Active Hx of suicide attempt Active Chronic pain disorder Active HTN (hypertension) Active Other sprain of right shoulder joint, initial en counter Active Obesity Active Asthma Active Hypokalemia Active Hypokalemia Active Inactive/Resolved Problems Medical Problem Onset Date Status Suicidal ideations Resolved Epigastric pain Resolved Procedures Procedure Date Status Provider(s) Hysteroscopy, with dilation and curettage of uterus, and endometrial ablation May 17, 2017 completed Milton Galvez MD, MD Shoulder 2 vw Min RT April 06, 2018 active ARTHROSCOPY BICEPS TENODESIS February 19, 2018 active SHOULDER ARTHROSCOPY/SURGERY February 19, 2018 active SHOULDER ARTHROSCOPY/SURGERY February 19, 2018 active MRSA Surveillance Culture February 19, 2018 completed US Kidney (Renal Complete) January 12, 2018 complete d MRSA Surveillance Culture May 17, 2017 completed MRI RT Upper Ext Jt w/o Cont April 17, 2017 complet ed NOBG US Transvaginal Non OB April 08, 2017 active Relevant Diagnostic Tests and/or Laboratory Data Laboratory [...] January 12, 2018 3:16am 5.0 Urine Specific [employer] January 12, 2018 3:16am 1.015 Urine Protein [...] have a copy [place] [facility] July 30, 2016 11:08pm Does patient have an Advanced Directive? No September 12, 2010 8:32am Pt has a Living Will? No September 12 11 8:32am Pt has a Power of Press Machine Feeder? No September 12, 2010 8:32am Chief Complaint and Reason for Visit Encounter Admit Date Chief Complaint Reason for V isit Departed Emergency April 06, 2018 9:21pm Shoulder In [facility] Discharge Instructions Additional Discharge Instructions Prelim inary x-ray interpretation does not reveal any bony injury or dislocation. I am quite concerned that you have recently had a major shoulder surgery and had a direct trauma with your fall. For this reason, I advise you to call your surgeon in the morning and arrange for follow-up to further evaluate your shoulder for injury. We discussed pain. I would advise you to use a cold compress, take your regularly prescribed tramadol. You are prescribed Percocets for breakthrough pain secondary to your acute injury. No Instructions/Education [facility] Discharge Medications [...] m 1 TAB ORAL TWICE A DAY 09 11April 30, 2017 Discontinu ed Lamotrigine 200 MG [...] Date Discharge/Departure Date Attending Provider Departed Emergency [facility] Emergency Department April 06, 2018 9:21pm April 06, 2018 11:05pm Registered Recurring [facility] April 04, 2018 3:00pm Marcin Doe Departed Surgical Day Care [facility] Surgical Services February 19, 2018 10:25am February 19, 2018 5:06pm Marcin Doe Discharged Inpatient [facility] Progressive Care Unit January 11, 2018 8:24pm January 12, 2018 4:59pm Santa Hassan Departed Surgical Day Care [facility] May 17, 2017 11:10am May 17, 2017 3:20pm Milton Galvez Departed Emergency [facility] Emergency Department April 30, 2017 12:05pm April 30, 2017 2:11pm Departed Clinical [facility] April 17, 2017 5:57pm April 17, 2017 5:58pm Jasper Vanegas Departed Clinical [facility] PIPELINE ENGINEER April 08, 2017 3:15pm April 08, 2017 3:16pm Milton Galvez Family History Query Response Instance Date Recorded Comment Grandparents Diabetes Mellitus Cancer January 11, 2018 10:50pm Functional Status No known functional status. Immunizations No known immunizations. Payers Payer Name Policy Type Covered Democrat Covered Democrat Id Relationship Subscriber Subscriber Id [place] Medicaid HILDA CARLINE [id number] Self/Same as Patient HILDA CARLINE [id number] SELF PAY Personal [place] MED[place] (DO NOT USE) Medicaid HILDA CARLINE [id number] Self/Same as Patient HILDA [place] [id number] Plan of Care No Known Plan of Care Information Social History Query Response Date Recorded Comment Alcohol Rare January 11, 2018 10:50pm Drugs Other January 11, 2018 10:50pm Living Situation Alone November 08, 2015 9:40pm Query Response Start Date Stop Date Smoking Status Current every day smoker April 29 Vital Signs Vital Reading Result Reference Range Collection Date/Time Height 5 ft February 19 8 5:03pm Weight 104.326 kg April 06 9:22pm Temperature 97.4 F 97.6 F-99.6 F February 19 5:03pm Pulse 87 BPM 60-100 April 06 8 11:00pm Respiration 16 RPM -April 06 8 11:00pm Pulse Oximetry 97 % 95-100 April 06 018 11:00pm Blood Pressure Systolic 123 100-140 Dece 2017 11:00pm Blood Pressure Diastolic 65 50-85 Dec ember 2017 11:00pm Body Mass Index 41.5 February 19, 2018 5:03pm
--- OUTSIDE RECORDS SUMMARY | 2024-02-14 15:31 | XMS_ITS | Continuity of Care Document ---
Author Name [facility] Address [address] [place] [address] Organization [facility] Address [address] [place] [address] Care Team Providers Care Manager Clinic Name Role Phone PCP, Not Given Primary Care Physician Unavailab Ghulam Johnson Attending Physician [phone] Allergies, Adverse Reactions, Alerts Allergen Type Severity [...] 279 mosm/kg 275-295 Test Performed by: [place] [address] On Call Pharmacy Technician: Marlon Morales MD , Ph D Calcium [...] copy [place] [facility] July 30, 2016 11:08pm Does patient have an Advanced Directive? No September 12, 2010 8:32am Pt has a Living Will? No September 12 8:32am Pt has a Power of Practical Nursing Faculty? No September 12, 2010 8:32am Hospital Discharge [...] Date Discharge/Departure Date Attending Provider Departed Referred [facility] Pathology [...] 4:52pm February 06, 2016 6:13pm Departed Emergency [facility] Emergency Department November 12, 2015 4:49pm November 12, 2015 7:02pm Discharged Inpatient [facility] Intensive Care Unit November 08, 2015 9:46pm November 09, 2015 7:20pm Gregorio Bryant Family History Query Response Instance Date Recorded Comment Grandparents Diabetes Mellitus Cancer November 08, 2015 11:34pm Functional Status No known functional status. Immunizations No known immunizations. Payers Payer Name Policy Type Covered Libertarian Covered Libertarian Id Relationship Subscriber Subscriber Id [place] Medicaid HILDA [place]OW[place] [id number] Self/Same as Patient HILDA [place] [id number] SELF PAY Personal [place] (DO NOT USE) Medicaid HILDA [place] [id number] Self/Same as Patient HILDA [place] [id number] Plan of Care No Known Plan of [...]
--- OUTSIDE RECORDS SUMMARY | 2024-02-14 15:31 | XMS_ITS | Continuity of Care Document ---
Author Name [facility] Address [address] [place] [address] Organization [facility] Address [address] [place] [address] Care Team Providers Care Tax Processor Name Role Phone Annette Padron Primary Care Physician Dwight Mckeon Attending Physician Unavailable Allergies, Adverse Reactions, Alerts [...] NASAL TWICE A DAY 15 14 September 17 17 Active Levonorgestrel [Mirena] December [...] a copy on file here [place] [facility] No July 30, 2016 11:08pm Does patient have an Advanced Directive? No September 12, 2010 8:32am Pt has a Living Will? No September 12 11 8:32am Pt has a Power of Director Life? No September 12, 2010 8:32am Chief Complaint [...] Date Discharge/Departure Date Attending Provider Departed Clinical [facility] Urgent [facility] January 25, 2017 5:15pm January 25, 2017 5:16pm Dwight Cullen Departed Emergency [facility] Emergency Department December 29, 2016 10:51pm December 30, 2016 1:03am Departed Emergency [facility] Emergency Department December 21, 2016 12:32am December 21, 2016 1:20am Departed Emergency [facility] Emergency Department September 17, 2016 9:09pm September 17, 2016 9:54pm Departed Emergency [facility] Emergency Department September 06, 2016 6:30pm September 06, 2016 8:08pm Discharged Recurring [facility] September 03, 2016 4:30pm October 19, 2016 8:52am Merrick Mason Departed Referred [facility] Pathology August 29, 2016 9:23pm August 29, 2016 9:24pm Ghulam Fuentes Departed Referred [facility] August 29, 2016 4:52pm August 29, 2016 4:53pm Ghulam Fuentes Departed Emergency [facility] Emergency Department July 30, 2016 8:10pm July 30, 2016 11:16pm Departed Emergency [facility] Emergency Department June 05, 2016 6:17pm June 05, 2016 8:36pm Departed Emergency [facility] Emergency Department April 29, 2016 3:10pm April 29, 2016 4:27pm Departed Emergency [facility] Emergency Department February 06, 2016 4:52pm February 06, 2016 6:13pm Family History Query Response Instance Date Recorded Comment Grandparents Diabetes Mellitus Cancer November 08, 2015 11:34pm Functional Status No known functional status. Immunizations No known immunizations. Payers Payer Name Policy Type Covered Alliance Party Covered Alliance Party Id Relationship Subscriber Subscriber Id MEDICAID [facility] Medicaid HILDA [place]OW[place] [id number] Self/Same as Patient HILDA [place] [id number] SELF PAY Personal [place] MED[place] (DO NOT USE) Medicaid HILDA [place]OW[place] [id number] Self/Same as Patient HILDA [place]OW[place] [id number] Plan of Care No Known Plan of [...]
--- OUTSIDE RECORDS SUMMARY | 2024-02-14 15:31 | XMS_ITS | Continuity of Care Document ---
Author Name [facility] Address [address] [place] [address] Organization [facility] Address [address] [place] [address] Care Team Providers Care Black Oxide Operator Name Role Phone Annette Padron Primary [...] No September 12, 2010 8:32am Power of Rug Hooker? No September 12, 2010 8:32am Hospital Discharge [...] Date Discharge Date Attending Provider Departed Emergency [facility] Emergency Department May 28, 2015 1:10pm May 28, 2015 3:00pm Departed Emergency [facility] Emergency Department May 27, 2015 3:36pm May 27, 2015 6:45pm Departed Emergency [facility] Emergency Department May 26, 2015 4:01pm May 26, 2015 4:50pm Registered Clinical [facility] April 08, 2015 11:01am Swapnil Galarza Registered Clinical [facility] March 08, 2015 12:02pm Swapnil Galarza Registered Clinical [facility] February 23, 2015 2:30pm Swapnil Galarza Departed Emergency [facility] Emergency Department February 14, 2015 8:22pm February 14, 2015 11:02pm Departed Emergency [facility] Emergency Department February 12, 2015 4:35pm February 12, 2015 7:02pm Departed Emergency [facility] Emergency Department November 30, 2014 5:26pm November 30, 2014 7:30pm Departed Emergency [facility] Emergency Department August 16, 2014 9:26pm August 16, 2014 10:25pm Departed Emergency [facility] Emergency Department August 06, 2014 4:03pm August 06, 2014 4:55pm Departed Emergency [facility] Emergency Department June 13, 2014 1:31pm June 13, 2014 3:27pm Departed Emergency [facility] Emergency Department May 31, 2014 4:56pm May 31, 2014 8:11pm Functional Status No known functional status. Immunizations No known immunizations. Payers Payer Name Policy Type Covered Constitution Party Covered Constitution Party Id Relationship Subscriber Subscriber Id [place] HILDA CARLINE [id number] SELF/SAME PATIENT HILDA CROWLEY [id number] Plan of Care No known plan of care. Social History No known social history. Vital Signs Vital Reading Result Reference Range Collection Date/Time Height 5 ft April 29, 2014 5:13am Weight n/a Temperature n/a Pulse n/a Respiration n/a Pulse Oximetry n/a Blood Pressure Systolic n/a Blood Pressure Diastolic n/a Body Mass Index n/a
--- OUTSIDE RECORDS SUMMARY | 2024-02-14 15:32 | XMS_ITS | Continuity of Care Document ---
Author Name [facility] Address [address] [place] [address] Organization [facility] Address [address] [place] [address] Care Team Providers Care Inspector Wire Rope Name Role Phone Annette Padron Primary Care [...] 279 mosm/kg 275-295 Test Performed by: [place] [address] Ring Stamper: Marlon Morales MD , Ph D Calcium [...] [place] a [place] [facility] No July 30, 2016 11:08pm Does patient have an Advanced Directive? No September 12, 2010 8:32am Pt has a Living Will? No September 12 8:32am Pt has a Power of Slitter Operator? No September 12, 2010 8:32am Chief [...] Id [place] Medicaid HILDA CARLINE [id number] Self/Same as Patient HILDA CARLINE [id number] SELF PAY Personal [place] (DO NOT USE) Medicaid HILDA CARLINE [id number] Self/Same as Patient HILDA SILVEROUGHBY [id number] Plan of Care No Known Plan of [...]
--- OUTSIDE RECORDS SUMMARY | 2024-02-14 15:32 | XMS_ITS | Continuity of Care Document ---
Author Name [facility] Address [address] [place] [address] Organization [facility] Address [address] [place] [address] Care Team Providers Care Aviation Mechanic Name Role Phone Annette Padron Primary [...] Date Status Ankle 3 vw Min RT September 06, [...] 279 mosm/kg 275-295 Test Performed by: [place] [address] Hvac Sales Engineer: Marlon Morales MD , Ph D Calcium [...] have a copy on file here [place] [facility] No July 30, 2016 11:08pm Does patient have an Advanced Directive? No September 12, 2010 8:32am Pt has a Living Will? No September 12 11 8:32am Pt has a Power of Producer Director? No September 12, 2010 8:32am Chief Complaint and Reason for Visit Encounter Admit Date Chief Complaint Reason for V isit Departed Emergency September 17, 2016 9:09pm SORE IN NOSE Hospital Discharge Instructions No known [...] Sulfamethoxazole -Trimethoprim 1 TAB ORAL Q12H 20 10 September 17, 2016 Active Mupirocin Calcium 1 APPLIC NASAL TWICE A DAY 15 14 September 17, 2016 Active Encounters Encounter Facility Location Admit/Visit Date Discharge/Departure Date Attending Provider Departed Emergency [facility] Emergency Department September 17, 2016 9:09pm September 17, 2016 9:54pm Departed Emergency [facility] Emergency Department September 06, 2016 6:30pm September 06, 2016 8:08pm Registered Recurring [facility] September 03, 2016 4:30pm Merrick Mason Departed [facility] 4:52pm February 06, 2016 6:13pm Departed Emergency [facility] Emergency Department November 12, 2015 4:49pm November 12, 2015 7:02pm Discharged Inpatient [facility] Intensive Care Unit November 08, 2015 9:46pm November 09, 2015 7:20pm Gregorio Bryant Family History Query Response Instance Date Recorded Comment Grandparents Diabetes Mellitus Cancer November 08, 2015 11:34pm Functional Status No known functional status. Immunizations No known immunizations. Payers Payer Name Policy Type Covered Republican Covered Republican Id Relationship Subscriber Subscriber Id [place] Medicaid HILDA CARLINE [id number] Self/Same as Patient [facility] [id number] SELF PAY Personal [place] MED[place] (DO NOT USE) [facility] [id number] Self/Same [facility] [id number] Plan of Care No Known Plan of [...] 17, 2016 9: 15pm Respiration 18 RPM -September 17, 2016 9: 15pm Pulse Oximetry 100 % 95-100 September 17, 2016 9:15pm Blood Pressure Systolic 151 100-140 September 17, 2016 9:15pm Blood Pressure Diastolic 77 50-85 September 17, 2016 9:15pm Body Mass Index 34.0 November 07 6 9:40pm
--- OUTSIDE RECORDS SUMMARY | 2024-02-14 15:32 | XMS_ITS | Continuity of Care Document ---
Author Name [facility] Address [address] [place] [address] Organization [facility] Address [address] [place] [address] Care Team Providers Care Touring Production Manager Name Role Phone Annette Padron Primary Care [...] ORAL DAILY November 09, 2015 Active Sitagliptin Phosphate 100 MG ORAL DAILY November 09, 2015 [...] Epigastric pain Resolved Procedures Procedure Date Status Blood Culture November 09, [address] Head w/o Contrast November 08, 2015 completed Chest 2 vw June 22, 2015 completed MRSA Screen May 26, 2015 completed Ankle 3 vw Min LT April 08, 2015 active Ankle 3 vw Min LT March 08, 2015 active Ankle 3 vw Min LT February 12, 2015 completed Lumbar Spine 2-3 vw February 12, 2015 completed Hip 2 vw Min LT w/ AP Pelvis February 12, 2015 co mpleted Relevant Diagnostic Tests and/or Laboratory [...] 279 mosm/kg 275-295 Test Performed by: [place] [address] Weblogic Administrator: Marlon Morales MD , Ph D [...] No September 12, 2010 8:32am Power of Fruit Grower? No September 12, 2010 8:32am Hospital Discharge [...] ORAL DAILY November 09, 2015 Active Sitagliptin Phosphate 100 MG ORAL DAILY November 09, 2015 Active Tramadol Hcl 50 MG ORAL Q6H PRN For Pain November 09, 2015 Active Gabapentin 600 MG ORAL TWICE A DAY November 09, 2015 Active Encounters Encounter Facility Location Admit Date Discharge Date Attending Provider Departed Emergency [facility] Emergency Department November 12, 2015 4:49pm November 12, 2015 7:02pm Discharged Inpatient [facility] Intensive Care Unit November 08, 2015 9:46pm November 09, 2015 7:20pm Gregorio Bryant Departed Emergency [facility] Emergency Department June 22, 2015 5:50pm June 22, 2015 8:15pm Departed Emergency [facility] Emergency Department May 29, 2015 2:24pm May 29, 2015 3:33pm Departed Emergency [facility] Emergency Department May 28, 2015 1:10pm May 28, 2015 3:00pm Departed Emergency [facility] Emergency Department May 27, 2015 3:36pm May 27, 2015 6:45pm Departed Emergency [facility] Emergency Department May 26, 2015 4:01pm May 26, 2015 4:50pm Registered Clinical [facility] April 08, 2015 11:01am Swapnil Galarza Registered Clinical [facility] March 08, 2015 12:02pm Swapnil Galarza Registered Clinical [facility] February 23, 2015 2:30pm Swapnil Galarza Departed Emergency [facility] Emergency Department February 14, 2015 8:22pm February 14, 2015 11:02pm Departed Emergency [facility] Emergency Department February 12, 2015 4:35pm February 12, 2015 7:02pm Departed Emergency [facility] Emergency Department November 30, 2014 5:26pm November 30, 2014 7:30pm Family History Query Response Instance Date Recorded [...] Alliance Party Id Relationship Subscriber Subscriber Id [place] Medicaid HILDA CROWLEY [id number] SELF/SAME PATIENT HILDA CROWLEY [id number] Plan of Care No known plan of [...]
--- OUTSIDE RECORDS SUMMARY | 2024-02-14 15:32 | XMS_ITS | Continuity of Care Document ---
Author Name [facility] Address [address] [place] [address] Organization [facility] Address [address] [place] [address] Care Team Providers Care Sawmill Supervisor Name Role Phone Annette Padron Primary Care Physician Unavailab le Allergies, Adverse Reactions, Alerts Allergen Type Severity Reaction Last Updated Verified Status NO KNOWN DRUG ALLERGIES Allergy April 02, 2017 Y Active Medications Active Medications Medication Dose [...] Trazodone July 30, 2016 Active Cyclobenzaprine 10 MG ORAL THREE AMOS ES A DAY September 06, 2016 Active Simvastatin 20 MG ORAL DAILY September 17, 2016 Active Labetalol December 21, 2016 Active Discontinued Medications Medication Dose Units Route Sig Qty Days Start Date Discontinued Date Status Pioglitazone 5 MG ORAL DAILY Merrick 2011October 02, 2011 Discontinue d Metformin [Glucophage] 1000 [...] Epigastric pain Resolved Procedures Procedure Date Status Shoulder 2 vw Min RT April 02, [...] vw Min RT April 29, 2016 completed Relevant Diagnostic Tests and/or Laboratory Data Microbiology Results Procedure Source Result Collection Date/Time Resu lt Date/Time Abscess Culture Nose Staphylococcus Aureus-Mrsa September 17, 2016 9:40pm September 20, 2016 7:28am Gram Stain Nose No results entered September 17, 2016 9:40 pm Advance Directives Advance Directive Response Recorded Date/ Time Do we have a copy on file here at [facility]? No July 30, 2016 11:08pm Does patient have an Advanced Directive? No September 12, 2010 8:32am Pt has a Living Will? No September 12 11 8:32am Pt has a Power of Ec Teacher? No September 12, 2010 8:32am Chief Complaint and Reason for Visit Encounter Admit Date Chief Complaint Reason for V carent Departed Emergency April 02, 2017 8:33pm SHOULDER IN [facility] Discharge Instructions Additional Discharge Instructions ICE TO REDUCE PAIN AND SWELLING....ALTERNATE WITH A HEATING PAD TO HELP RELAX THE MUSCLES...CONTINUE THE IBUPROFEN AND/OR TYELNOL NEEDED ..SEE INFORMATION REGARDING SHOULDER STRETCHING EXERCISES THAT YOU CAN START YOUR SHOULDER STARTS TO IMPROVE Instruction/Education Provided Shoulder Probs Exercises Shoulder Flexibility Hospital Discharge Medications Medication Dose Units Route Sig Qty Days Order Date Status Instructions Pioglitazone 5 MG ORAL DAILY Sep Discontinue d Metformin 1000 MG ORAL TWICE DAILY BEFORE MEALS October 02, 2011 Discontinue d Insulin Glargine 10 UNITS SUBCUTANEO US BEDTIME October 02, 2011 Discontinue d Tramadol 50 MG ORAL Q6H PRN For Pain November 09, 2015 Active Quetiapine 100 MG ORAL DAILY November 09, 2015 Discontinue d Dexmethylphenid ate 10 MG ORAL THREE TIMES [...] July 30, 2016 Discontinue d Cyclobenzaprine 10 MG ORAL THREE TIMES A DAY September 06, 2016 Active Simvastatin 20 MG ORAL DAILY September 17, 2016 Active Sulfamethoxazol e-Trimethoprim 1 TAB ORAL Q12H 20 August 282016 Discontinue d Mupirocin Calcium 1 APPLIC NASAL TWICE A DAY 15 September 17, 2016 Discontinue d Levonorgestrel A ugust 2016 Discontinue d Labetalol December 21, 2016 Active Encounters Encounter Facility Location Admit/Visit Date Discharge/Departure Date Attending Provider Departed Emergency [facility] Emergency Department April 02, 2017 8:33pm April 02, 2017 9:27pm Departed Clinical [facility] January 25, 2017 5:15pm January 25, 2017 5:16pm Dwight Cullen Departed Emergency [facility] Emergency Department December 29, 2016 10:51pm December 30, 2016 1:03am Departed Emergency [facility] Emergency Department December 21, 2016 12:32am December 21, 2016 1:20am Departed Emergency [facility] Emergency Department September 17, 2016 9:09pm September 17, 2016 9:54pm Departed Emergency [facility] Emergency Department September 06, 2016 6:30pm September 06, 2016 8:08pm Discharged Recurring [facility] September 03, 2016 4:30pm October 19, 2016 8:52am Merrick Mason Departed Referred [facility] Pathology August 29, 2016 9:23pm August 29, 2016 9:24pm Ghulam Fuentes Departed Referred [facility] August 29, 2016 4:52pm August 29, 2016 4:53pm Ghulam Fuentes Departed Emergency [facility] Emergency Department July 30, 2016 8:10pm July 30, 2016 11:16pm Departed Emergency [facility] Emergency Department June 05, 2016 6:17pm June 05, 2016 8:36pm Departed Emergency [facility] Emergency Department April 29, 2016 3:10pm April 29, 2016 4:27pm Family History Query Response Instance Date Recorded Comment Grandparents Diabetes Mellitus Cancer November 08, 2015 11:34pm Functional Status No known functional status. Immunizations No known immunizations. Payers Payer Name Policy Type Covered Republican Covered Republican Id Relationship Subscriber Subscriber Id MEDICAID [facility] Medicaid HILDA SILVEROUGHBY [id number] Self/Same as Patient HILDA CARLINE [id number] SELF PAY Personal [place] MEDICAID (DO NOT USE) Medicaid HILDA RAMIREZBY [id number] Self/Same as Patient HILDA RAMIREZBY [id number] Plan of Care Instructions Shoulder Probs Exercises Shoulder Flexibility Social History Query Response Date Recorded Comment Alcohol Rare November 08, 2015 11:34pm Drugs Other November 08, 2015 11:34pm Living Situation Alone November 08, 2015 9:40pm Query Response Start Date Stop Date Smoking Status Current every day smoker Vital Signs Vital Reading Result Reference Range Collection Date/Time Height 5 ft December 21, 2016 12:35am Weight 89.539 kg April 02 8:41pm Temperature 97.7 F 97.6 F-99.6 F April 02 8:41pm Pulse 103 BPM 60-100 April 02 7 9:21pm Respiration 20 RPM 12-April 02 8:41pm Pulse Oximetry 97 % 95-100 April 02 017 8:41pm Blood Pressure Systolic 145 100-140 Dece 2016 8:41pm Blood Pressure Diastolic 88 50-85 Dec emb2016 8:41pm Body Mass Index n/a
--- OUTSIDE RECORDS SUMMARY | 2024-02-14 15:32 | XMS_ITS | Continuity of Care Document ---
Author Name [facility] Address [address] [place] [address] Organization [facility] Address [address] [place] [address] Care Team Providers Care It Systems Administrator Name Role Phone PCP, Not Given Primary [...] 279 mosm/kg 275-295 Test Performed by: [place] [address] Dough Machine Operator: Marlon Morales MD , Ph D Calcium [...] have a copy on file here at [facility]? No July 30, 2016 11:08pm Does patient have an Advanced Directive? No September 12, 2010 8:32am Pt has a Living Will? No September 12 8:32am Pt has a Power of Police Officer? No September 12, 2010 8:32am Hospital Discharge [...] Location Admit/Visit Date Discharge/Departure Date Attending Provider Registered Recurring [facility] August 30, 2016 11:53am Merrick Mason Departed Referred [facility] Pathology August [...] Id [place] Medicaid HILDA CROWLEY [id number] Self/Same as Patient HILDA CROWLEY [id number] SELF PAY Personal [place] MEDICAID (DO NOT USE) Medicaid HILDA CROWLEY [id number] Self/Same as Patient HILDA CROWLEY [id number] Plan of Care No Known Plan of [...] 30, 2016 8 :44pm Respiration 18 RPM 12-July 30, 2016 8 :44pm Pulse Oximetry 98 % 95-100 July 30, 2016 8:44pm Blood Pressure Systolic 127 100-140 Apr2016 8:44pm Blood Pressure Diastolic 79 50-85 Apr 2016 8:44pm Body Mass Index 34.0 November 07 6 9:40pm
--- OUTSIDE RECORDS SUMMARY | 2024-02-14 15:32 | XMS_ITS | Continuity of Care Document ---
Author Name [facility] Address [address] [place] [address] Organization [facility] Address [address] [place] [address] Care Team Providers Care Folder Seamer Automatic Name Role Phone Annette Padron Primary Care [...] Chest 2 vw June 22, 2015 completed Relevant Diagnostic Tests and/or Laboratory [...] mosm/kg 275-295 Test Performed by: [place] [address] Embedded Engineer: Marlon Morales MD , Ph D Calcium Level November 09, 2015 7:10am 8.5 mg/dL 8.4-10.2 Delta: 9.7 on 11/08/15-1818 Calcium Adjusted for Albumin November 09, 2015 [...] No September 12, 2010 8:32am Power of Design Engineer Marine Equipment? No September 12, 2010 8:32am Hospital Discharge [...] Date Discharge Date Attending Provider Departed Emergency [facility] Emergency Department June 05, 2016 6:17pm June 05, 2016 8:36pm Departed Emergency [facility] Emergency Department April 29, 2016 3:10pm April 29, 2016 4:27pm Departed Emergency [facility] Emergency Department February 06, 2016 4:52pm February 06, 2016 6:13pm Departed Emergency [facility] Emergency Department November 12, 2015 4:49pm November 12, 2015 7:02pm Discharged Inpatient [facility] Intensive Care Unit November 08, 2015 9:46pm November 09, 2015 7:20pm Gregorio Bryant Departed Emergency [facility] Emergency Department June 22, 2015 5:50pm June 22, 2015 8:15pm Family History Query Response Instance Date Recorded [...] Covered Libertarian Id Relationship Subscriber Subscriber Id [place] MEDICA[place] Medicaid [facility] [id number] SELF/SAME PATIENT [facility] [id number] Plan of Care No known plan of [...]
--- OUTSIDE RECORDS SUMMARY | 2024-02-14 15:32 | XMS_ITS | Continuity of Care Document ---
Author Name [facility] Address [address] [place] [address] [facility] Address [address] [place] [address] Care Team Providers Care Certified Mortician Name Role Phone Annette Padron Primary Care Physician Unavailab le Allergies, Adverse Reactions, Alerts Allergen Type Severity Reaction Last Updated Verified Status NO KNOWN DRUG ALLERGIES Allergy April 02, 2017 Y Active *MRSA Allergy May 30, 2015 [...] 2 vw Min RT April 02, 2017 active Ankle 3 vw Min RT January 25, [...] a copy on file here [place] [facility]? No July 30, 2016 11:08pm Does patient have an Advanced Directive? No September 12, 2010 8:32am Pt has a Living Will? No September 12 11 8:32am Pt has a Power of Senior Financial Accountant? No September 12, 2010 8:32am Chief Complaint and Reason for Visit Encounter Admit Date Chief Complaint Reason for V isit Departed Emergency April 02, 2017 8:33pm SHOULDER IN [facility] Discharge Instructions Additional Discharge Instructions ICE [...] Date Discharge/Departure Date Attending Provider Departed Emergency [facility] Emergency Department April 02, 2017 8:33pm April 02, 2017 9:27pm Departed Clinical [facility] January 25, 2017 5:15pm January 25, 2017 5:16pm Dwight Cullen Departed Emergency [facility] Emergency Department December 29, 2016 10:51pm December 30, 2016 1:03am Departed Emergency [facility] Emergency Department December 21, 2016 12:32am December 21, 2016 1:20am Departed Emergency [facility] Emergency Department September 17, 2016 9:09pm September 17, 2016 9:54pm Departed Emergency [facility] Emergency Department September 06, 2016 6:30pm September 06, 2016 8:08pm Discharged [facility] September 03, 2016 4:30pm October 19, 2016 8:52am Merrick Mason Departed Referred [facility] Pathology August 29, 2016 9:23pm August 29, 2016 9:24pm Guhlam Fuentes Departed Referred [facility] OBGYN August 29, 2016 4:52pm August 29, 2016 4:53pm Ghulam Fuentes Departed Emergency [facility] Emergency Department July 30, 2016 8:10pm July 30, 2016 11:16pm Departed Emergency [facility] Emergency Department June 05, 2016 6:17pm June 05, 2016 8:36pm Departed Emergency [facility] Emergency Department April 29, 2016 3:10pm April 29, 2016 4:27pm Family History Query Response Instance Date Recorded Comment Grandparents Diabetes Mellitus Cancer November 08, 2015 11:34pm Functional Status No known functional status. Immunizations No known immunizations. Payers Payer Name Policy Type Covered Constitution Party Covered Constitution Party Id Relationship Subscriber Subscriber Id MEDICAID [facility] Medicaid HILDA SILVEROUGHBY [id number] Self/Same as Patient HILDA SILVEROUGHBY [id number] SELF PAY Personal [place] MEDICAID (DO NOT USE) Medicaid HILDA SILVEROUGHBY [id number] Self/Same as Patient HILDA SILVEROUGHBY [id number] Plan of Care Instructions Shoulder Probs Exercises [...] 8:41pm Pulse 103 BPM 60-100 April 02 9:21pm Respiration 20 RPM 04-21April 02 8:41pm Pulse Oximetry 97 % 95-100 April 02 017 8:41pm Blood Pressure Systolic 145 100-140 Dece 2016 8:41pm Blood Pressure Diastolic 88 50-85 Dec 2016 8:41pm Body Mass Index n/a
--- OUTSIDE RECORDS SUMMARY | 2024-02-14 15:32 | XMS_ITS | Continuity of Care Document ---
Author Name [facility] Address [address] [place] [address] Organization [facility] Address [address] [place] [address] Care Team Providers Care Six Horse Hitch Driver Name Role Phone Annette Padron Primary Care [...] Suicidal ideations Resolved Procedures Procedure Date Status Cervical Spine 2-3 vw December 29, 2016 active Shoulder 2 vw Min RT December 29, 2016 active Chest 2 vw December 21, 2016 completed [...] a copy on file here at [facility]? No July 30, 2016 11:08pm Does patient have an Advanced Directive? No September 12, 2010 8:32am Pt has a Living Will? No September 12 11 8:32am Pt has a Power of Rail Manager? No September 12, 2010 8:32am Chief Complaint and Reason for Visit Encounter Admit Date Chief Complaint Reason for V isit Departed Emergency December 29, 2016 10:51pm [facility] Discharge Instructions Additional Discharge Instructions Ice to the bruised or injured areas 20 minutes 3 4 times per day while painful. Etxd-yfi-htfhurr meds like Tylenol taking 1 g up to every 8 hours. Gentle stretching exercises. Have somebody wake you once during the night to check you for ease of arousability your head injury. Rest. Avoid unnecessary lifting. Instruction/Education Provided Concussio n Dc Strain Sprain Contusion Ch Hospital Discharge Medications Medication Dose Units Route [...] 15 14 September 17, 2016 Active Levonorgestrel A ugust 2016 Active Labetalol December 21, 2016 [...] 29, 2016 9:24pm Ghulam Fuentes Departed Referred [facility] August 29, 2016 4:52pm August 29, 2016 4:53pm Ghulam Fuentes Departed Emergency [facility] Emergency Department July 30, 2016 8:10pm July 30, 2016 11:16pm Departed Emergency [facility] Emergency Department June 05, 2016 6:17pm June 05, 2016 8:36pm Departed Emergency [facility] Emergency Department April 29, 2016 3:10pm April 29, 2016 4:27pm Departed Emergency [facility] Emergency Department February 06, 2016 4:52pm February 06, 2016 6:13pm Family History Query Response Instance Date Recorded Comment Grandparents Diabetes Mellitus Cancer November 08, 2015 11:34pm Functional Status No known functional status. Immunizations No known immunizations. Payers Payer Name Policy Type Covered Republican Covered Republican Id Relationship Subscriber Subscriber Id MEDICAID [facility] Medicaid Health [id number] Self/Same as Patient [facility] [id number] SELF PAY Personal [place] MEDICAID (DO NOT USE) Medicaid [facility] [id number] Self/Same as Patient [facility] [id number] Plan of Care Instructions Concussion Dc Strain Sprain Contusion Ch Social History Query Response Date Recorded Comment [...] 98.2 F 97.6 F-99.6 F December 29 11:02pm Pulse 114 BPM 60-100 December 30 1:02am Respiration 16 RPM -December 30 1:02am Pulse Oximetry 98 % 95-100 December 30, 2016 1:02am Blood Pressure Systolic 148 100-140 Dec 1:02am Blood Pressure Diastolic 83 50-85 Dec 1:02am Body Mass Index n/a
--- OUTSIDE RECORDS SUMMARY | 2024-02-14 15:32 | XMS_ITS | Continuity of Care Document ---
Author Name [facility] Address [address] [place] [address] Organization [facility] Address [address] [place] [address] Care Team Providers Care Director Of Analytics Name Role Phone PCP, Not Given Primary [...] 279 mosm/kg 275-295 Test Performed by: [place] [address] Offset Plate Preparation Supervisor: Marlon Morales MD , Ph D Calcium [...] have a copy on file here at [facility]? No July 30, 2016 11:08pm Does patient have an Advanced Directive? No September 12, 2010 8:32am Pt has a Living Will? No September 12 8:32am Pt has a Power of Form Builder Helper? No September 12, 2010 8:32am Hospital Discharge [...] Date Discharge/Departure Date Attending Provider Registered Recurring [facility] August 30, 2016 11:53am Merrick Mason Departed Referred [facility] Pathology August 29, 2016 9:23pm August 29, 2016 9:24pm Ghulam Fuentes Departed Referred [facility] August 29, 2016 4:52pm August 29, 2016 4:53pm Ghulam Fuentes Departed Emergency [facility] Emergency Department July 30, 2016 8:10pm July 30, 2016 11:16pm Departed Emergency [facility] Emergency Department June 05, 2016 6:17pm June 05, 2016 8:36pm Departed Emergency [facility] Emergency Department April 29, 2016 3:10pm April 29, 2016 4:27pm Departed Emergency [facility] Emergency Department February 06, 2016 4:52pm February 06, 2016 6:13pm Departed Emergency [facility] Emergency Department November 12, 2015 4:49pm November 12, 2015 7:02pm Discharged Inpatient [facility] Intensive Care Unit November 08, 2015 9:46pm November 09, 2015 7:20pm Gregorio Bryant Family History Query Response Instance Date Recorded Comment Grandparents Diabetes Mellitus Cancer November 08, 2015 11:34pm Functional Status No known functional status. Immunizations No known immunizations. Payers Payer Name Policy Type Covered Republican Covered Republican Id Relationship Subscriber Subscriber Id [place] Medicaid HILDA CROWLEY [id number] Self/Same as Patient HILDA CROWLEY [id number] SELF PAY Personal [place] MED[place] (DO NOT USE) Medicaid HILDA CROWLEY [id number] Self/Same as Patient HILDA CROWLEY [id number] Plan of Care No Known Plan of [...]
--- OUTSIDE RECORDS SUMMARY | 2024-02-14 15:32 | XMS_ITS | Continuity of Care Document ---
Author Name [facility] Address [address] [place] [id number] [facility] Address [address] [place] [id number] Care Team Providers Care Tool Grinder Operator Name Role Phone Annette Padron Primary Care Physician Unavailab Jasper Felix Attending Physician Unavailab shaun Allergies, Adverse Reactions, Alerts No known allergies. [...] DAILY July 30, 2016 September 06, 2016 Discontinue d Sulfamethoxazol e-Trimethoprim [Bactrim Ds] 1 TAB ORAL Q12H 20 September 17, 2016 December 21, 2016 Discontinue [...] Ext Jt w/o Cont April 17, 2017 a ctive NOBG US Transvaginal Non OB April 08, [...] have a copy on file here at [facility]? No July 30, 2016 11:08pm Does patient have an Advanced Directive? No September 12, 2010 8:32am Pt has a Living Will? No September 12 11 8:32am Pt has a Power of Linux Security Administrator? No September 12, 2010 8:32am Chief Complaint and Reason for Visit Encounter Admit Date Chief Complaint Reason for V isit Departed Clinical April 17, 2017 5:57pm RIGHT SHOULDER PAIN M25.511 Hospital Discharge Instructions No known hospital discharge [...] Calcium 1 APPLIC NASAL TWICE A DAY September 17, 2016 Discontinue d Levonorgestrel A ugust 2016 Discontinue d Labetalol December 21, 2016 Active Encounters Encounter Facility Location Admit/Visit Date Discharge/Departure Date Attending Provider Departed Clinical [facility] April 17, 2017 5:57pm April 17, 2017 5:58pm Jasper Vanegas Departed Clinical [facility] FANS CLERK April 08, 2017 3:15pm April 08, 2017 3:16pm Milton Galvez Departed Emergency [facility] Emergency Department April 02, 2017 8:33pm April 02, 2017 9:27pm Departed Clinical [facility] January 25, 2017 5:15pm January 25, 2017 [...] 6:30pm September 06, 2016 8:08pm Discharged Recurring [facility] September 03, 2016 4:30pm October 19, 2016 8:52am Merrick Mason Departed Referred [facility] Pathology August 29, 2016 9:23pm August 29, 2016 9:24pm Ghulam Fuentes Departed Referred [facility] OBGYN August 29, 2016 4:52pm [...] Green Party Id Relationship Subscriber Subscriber Id MEDICAID [facility] Medicaid HILDAIsonas [id number] Self/[place] [id number] SELF PAY Personal [place] MEDICAID (DO NOT USE) Medicaid HILDA CARLINE [id number] Self/[place] [id number] Plan of Care No Known Plan of [...] 8:41pm Blood Pressure Systolic 145 100-140 Dece mb2016 8:41pm Blood Pressure Diastolic 88 50-85 Dec emb2016 8:41pm Body Mass Index n/a
--- OUTSIDE RECORDS SUMMARY | 2024-02-14 15:32 | XMS_ITS | Continuity of Care Document ---
Author Name [facility] Address [address] [place] [id number] Organization [facility] Address [address] [place] [address] Care Team Providers Care Horticultural Technical Officer Name Role Phone Annette Padron Primary Care Physician Milton Fitzpatrick Attending Physician Allergies, Adverse Reactions, Alerts Allergen [...] Epigastric pain Resolved Procedures Procedure Date Status NOBG US Transvaginal Non OB April 08, [...] copy on file here at [facility]? No July 30, 2016 11:08pm Does patient have an Advanced Directive? No September 12, 2010 8:32am Pt has a Living Will? No September 12 11 8:32am Pt has a Power of Senior Games Technician? 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 April 08, 2017 3:15pm April 08, 2017 3:16pm Milton Galvez Departed Emergency [facility] Emergency Department April 02, 2017 8:33pm April 02, 2017 9:27pm Departed Clinical [facility] January 25, 2017 5:15pm January 25, 2017 5:16pm Dwight Cullen Departed Emergency [facility] Emergency Department December 29, 2016 10:51pm December 30, 2016 1:03am Departed Emergency [facility] Emergency Department December 21, 2016 12:32am December 21, 2016 1:20am Departed Emergency [facility] Emergency Department September 17, 2016 9:09pm September 17, 2016 9:54pm Departed Emergency [facility] Emergency Department September 06, 2016 6:30pm September 06, 2016 8:08pm Discharged Recurring [facility] September 03, 2016 4:30pm October 19, 2016 8:52am Merrick Mason Departed Referred [facility] Pathology August 29, 2016 9:23pm August 29, 2016 9:24pm Ghulam Fuentes Departed Referred [facility] OBGYN August 29, 2016 4:52pm August 29, 2016 4:53pm Ghulam Fuentes Departed Emergency [facility] Emergency Department July 30, 2016 8:10pm July 30, 2016 11:16pm Departed Emergency [facility] Emergency Department June 05, 2016 6:17pm June 05, 2016 8:36pm Departed Emergency [facility] Emergency Department April 29, 2016 3:10pm April 29, 2016 4:27pm Family History Query Response Instance Date Recorded Comment Grandparents Diabetes Mellitus Cancer November 08, 2015 11:34pm Functional Status No known functional status. Immunizations No known immunizations. Payers Payer Name Policy Type Covered Constitution Party Covered Constitution Party Id Relationship Subscriber Subscriber Id MEDICAID [facility] Medicaid HILDA SILVEROUGHBY [id number] Self/Same as Patient HILDA SILVEROUGHBY [id number] SELF PAY Personal [place] MEDICAID (DO NOT USE) Medicaid HILDA RAMIREZBY [id number] Self/Same as Patient HILDA SILVEROUGHBY [id number] Plan of Care No Known Plan of [...] 2016 12:35am Weight 89.539 kg April 02 7 8:41pm Temperature 97.7 F 97.6 F-99.6 F April 02 8:41pm Pulse 103 BPM 60-100 April 02 7 9:21pm Respiration 20 RPM 12-24 April 02 7 8:41pm Pulse Oximetry 97 % 95-100 April 02 017 8:41pm Blood Pressure Systolic 145 100-140 Dece mb2016 8:41pm Blood Pressure Diastolic 88 50-85 Dec emb2016 8:41pm Body Mass Index n/a
--- OUTSIDE RECORDS SUMMARY | 2024-02-14 15:32 | XMS_ITS | Continuity of Care Document ---
Author Name [facility] Address [address] [place] [address] Organization [facility] Address [address] [place] [address] Care Team Providers Care Vice Principal Name Role Phone Annette Padron Primary Care Physician UnavailNahid Arredondo Admitting Physician [phone] Gregorio Bryant Attending Physician Allergies, Adverse Reactions, Alerts Allergen [...] Result Co mment White Blood Count November 09, 2015 7:10am 8.72 1000/mm3 4.8-10.8 Red Blood Count November 09, 2015 7:10am 3.70 M/mm3 Low 4.20-5.40 Hemoglobin November 09, 2015 7:10am 11.5 g/dL Low 12.0-16.0 Hematocrit November 09, 2015 7:10am 33.0 % Low 37-47 Mean Corpuscular Volume November 09, 2015 7:10am 89.2 fL 81.0-99.0 Mean Corpuscular Hemoglobin November 09, 2015 7:10am 31.1 pg High 27-31 Mean Corpuscular Hemoglobin Concent November 09, 2015 7:10am 34.8 g/dL 33-37 Red Cell Distribution Width November 09, 2015 7:10am 12.5 % 11.5-14.5 Platelet Count November 09, 2015 7:10am 342 1000/mm3 140-440 Mean Platelet Volume November 09, 2015 7:10am 9.7 fL 7.4-10.4 Neutrophils (%) (Auto) November 09, 2015 7:10am 33.3 % Low 40.0-72.0 Lymphocytes (%) (Auto) November 09, 2015 7:10am 51.9 % High 17-45 Monocytes (%) (Auto) November 09, 2015 7:10am 10.7 % 3-11 Eosinophils (%) (Auto) November 09, 2015 7:10am 3.6 % High 0-3 Basophils (%) (Auto) November 09, 2015 7:10am 0.5 % 0-1 Neutrophils # (Auto) November 09, 2015 7:10am 2.91 1000/mm3 1.4-6.5 Lymphocytes # (Auto) November 09, 2015 7:10am 4.53 1000/mm3 High 1.2-3.4 Monocytes # (Auto) November 09, 2015 7:10am 0.93 1000/mm3 High 0.0-0.8 Eosinophils # (Auto) November 09, 2015 7:10am 0.31 1000/mm3 0.0-0.7 Basophils # (Auto) November 09, 2015 7:10am 0.04 1000/mm3 0.0-0.1 Differential Method November 09, 2015 7:10am Automated Sodium Level November 09, 2015 7:10am 140 mmol/L 137-145 Potassium Level November 09, 2015 7:10am 3.6 mmol/L 3.6-5.0 Chloride Level November 09, 2015 7:10am 108 mmol/L High 98-107 Delta: 98 on 11/08/15 Carbon Dioxide Level November 09, 2015 7:10am 22 mmol/L 22-30 Anion Gap November 09, 2015 7:10am 10 7-16 Blood Urea Nitrogen November 09, 2015 7:10am 7 mg/dL 7-17 Creatinine November 09, 2015 7:10am 0.62 mg/dL 0.52-1.04 Glomerular Filtration Rate Calc November 09, 2015 7:10am > 60 mL/min Glucose Level November 09, 2015 7:10am 180 mg/dL High 70-100 Osmolality November 08, 2015 6:19pm 279 mosm/kg 275-295 Test Performed by: [place] [address] Telecommunications Repairer: Marlon Morales MD , Ph D Calcium Level November 09, 2015 7:10am 8.5 mg/dL 8.4-10.2 Delta: 9.7 on 11/08/15 Calcium Adjusted for Albumin November 09, 2015 [...] No September 12, 2010 8:32am Power of Latrine Cleaner? No September 12, 2010 8:32am Chief Complaint and Reason for Visit Encounter Admit Date Chief Complaint Reason for V isit Discharged Inpatient November 08, 2015 9:46pm ALTERED MENTAL STATUS Toxic encephalopathy Hypokalemia Elevated liver function tests Prolonged QT interval Anxiety Asthma Back pain Chronic pain syndrome Depression Type 2 diabetes mellitus Fibromyalgia Hypertension History of sciatica History of suicide attempt Hypercholesterolemia Obesity Tobacco abuse Suicidal ideation Hospital Discharge Instructions No known hospital discharge [...] Location Admit Date Discharge Date Attending Provider Discharged Inpatient [facility] Intensive Care Unit November 08, 2015 9:46pm November 09, 2015 7:20pm Gregorio Bryant Departed Emergency [facility] Emergency Department June 22, 2015 5:50pm June 22, 2015 8:15pm Departed Emergency [facility] Emergency Department May 29, 2015 2:24pm May 29, 2015 3:33pm Departed Emergency [facility] Emergency Department May 28, 2015 1:10pm May 28, 2015 3:00pm Departed Emergency [facility] Emergency Department May 27, 2015 3:36pm May 27, 2015 6:45pm Departed Emergency [facility] Emergency Department May 26, 2015 4:01pm May 26, 2015 4:50pm Registered Clinical [facility] April 08, 2015 11:01am Swapnil Galarza Registered Clinical [facility] March 08, 2015 12:02pm Swapnil Galarza Registered Clinical [facility] February 23, 2015 2:30pm Swapnil Galarza Departed Emergency [facility] Emergency Department February 14, 2015 8:22pm February 14, 2015 11:02pm Departed Emergency [facility] Emergency Department February 12, 2015 4:35pm February 12, 2015 7:02pm Departed Emergency [facility] Emergency Department November 30, 2014 5:26pm November 30, 2014 7:30pm Encounter Diagnosis Onset Date Toxic encephalopathy Hypokalemia Elevated liver function tests Prolonged QT interval Anxiety Asthma Back pain Chronic pain syndrome Depression Type 2 diabetes mellitus Fibromyalgia Hypertension History of sciatica History of suicide attempt Hypercholesterolemia Obesity Tobacco abuse Suicidal ideation Family History Query Response Instance Date Recorded [...] Alliance Party Id Relationship Subscriber Subscriber Id [place] MEDICAID Medicaid HILDA RAMIREZBY [id number] SELF/SAME PATIENT HILDA SILVEROUGHBY [id number] Plan of Care Instructions Suicide Warning Signs What D o GENERAL DISCHARGE INSTRUCTIONS OUR GOAL You have been cared for by the Hospital Care Team at [facility] ([facility]). Our goal is to make sure that your discharge from the hospital is as safe as possible. This means making sure that: >You understand the reason for your hospitalization. >You understand your medications at discharge including any new prescriptions, changes to your medication, and stopped medications. >You know the symptoms of your illness and when to call for help. >You understand your discharge plan and instructions. >A summary of your care will be sent to your primary care provider and other members of your care team that you identify. DISCHARGE DIAGNOSIS: Toxic encephalopathy possibly secondary to overmedication vs. medication reaction. DIET: Diabetic Diet DIET COMMENT: DIET CONSISTENCY: ACTIVITY: Resume Previous Activity ACTIVITY COMMENT: BATHING: No Restrictions BATHING COMMENT: WOUND CARE: WEIGHT BEARING STATUS: WEIGHT LIFTING STATUS: ADDITIONAL INSTRUCTIONS: FOLLOW UP WITH: SERVICES RECOMMENDED: (if applicable): WHO TO CALL *CONTACT US AT [facility] IF You have not seen your primary care provider if you have questions regarding your care in the hospital including questions regarding your medications, discharge instructions, or services arranged prior to seeing your primary care provider. If you were discharged from the Medical/Surgical unit contact us at: [phone] If you were discharged from the Stepdown/Intensive Care unit contact us at: [phone] Your location at discharge was <b>Intensive Care Unit</b> Your provider at the hospital was <b>Gregorio Bryant</b> *CONTACT YOUR PRIMARY CARE IF You are concerned that your symptoms are worsening or have returned, to see if your appointment needs to be changed or you need to be seen sooner. WHEN TO GO TO THE EMERGENCY DEPARTMENT The Emergency Department is there for you when you need immediate care for serious illness, injury or severe symptoms.You should call 911 or return to the Emergency Department *IF THE SYMPTOMS OF YOUR RECENT HOSPITALIZATION HAVE RETURNED OR SEVERELY WORSENED. THESE MIGHT INCLUDE: > >Recommend holding your dexmethylphenidate and Seroquel at least tonight and then see how you're feeling tomorrow before restarting these medications. >Uncontrolled bleeding >Severe pain not controlled by available oral pain medications >Persistent vomiting or vomiting blood >Fainting >Unexpected shortness of breath or difficultly breathing >Persistent high fever greater than 101 >Seizures *SIGNS OR SYMPTOMS OF A HEART ATTACK >CHEST DISCOMFORT Most heart attacks involve discomfort in the center of the chest that lasts more than a few minutes, or that goes away and comes back. It can feel like uncomfortable pressure, squeezing, fullness or pain. >DISCOMFORT OF OTHER AREAS IN THE UPPER BODY Symptoms can include pain or discomfort in one or both arms, the back, neck, jaw or stomach. >SHORTNESS OF BREATH With or without chest discomfort. >OTHER SIGNS May include breaking out in a cold sweat, nausea or lightheadedness.As with men, womens most common heart attack symptom is chest pain or discomfort. But women are somewhat more likely than men to experience some of the other common symptoms, particularly shortness of breath, nausea/ vomiting and back or jaw pain. *SIGNS OR SYMPTOMS OF STROKE (FAST) >FACE DROOPING Does one side of the face droop or is it numb? Ask the person to smile. Is the person's smile uneven? >ARM WEAKNESS Is one arm weak or numb? Ask the person to raise both arms. Does one arm drift downward? >SPEECH DIFFICULTY Is speech slurred? Is the person unable to speak or hard to understand? Ask the person to repeat a simple sentence, like The maricruz is blue. Is the sentence repeated correctly? >TIME TO CALL 9-1-1 If someone shows any of these symptoms, even if the symptoms go away, call 9-1-1 and get the person to the hospital immediately. Check the time so you'll know when the first symptoms appeared. Social History Query Response Date Recorded Comment Alcohol Rare November 08, 2015 11:34pm Drugs Other November 08, 2015 11:34pm Living Situation Alone November 08, 2015 9:40pm Query Response Start Date Stop Date Smoking Status Current Every Day Smoker Vital Signs Vital Reading Result Reference Range Collection Date/Time Height 5 ft November 08, 2015 9 :40pm Weight 174 lb 8 oz November 08, 2015 9 :40pm Temperature 96.3 F 97.6 F-99.6 F November [...]
--- OUTSIDE RECORDS SUMMARY | 2024-02-14 15:32 | XMS_ITS | Continuity of Care Document ---
Author Name [facility] Organization [facility] Care Team Providers Care Reading Tutor Name Role Phone Tamara Neal Primary Care Physician Unavail able Milton Galvez Attending Physician Allergies, Adverse Reactions, Alerts Allergen Type Severity Reaction Last Updated Verified Status NO KNOWN DRUG ALLERGIES Allergy October 02, 2011 Y Active Medications Medication Dose Units Route Sig Qty Days Start Date Discontinued Date Status Instructions Trazodone Hydrochloride 100 mg PO DAILY October 02, 2011 Active Hydromorphone Hydrochloride 8 mg PO PRN For Pain October 02, 2011 Active Citalopram Hydrobromide 40 mg PO DAILY October 02, 2011 Active Gabapentin 100 mg PO EVERY MORNIN G October 02, 2011 Active Gabapentin 300 mg PO TWICE A DAY October 02, 2011 Active Pioglitazone Hcl 5 mg PO DAILY October 02, 2011 October 02, 2011 Disconti nued Metformin 1000 mg PO TWICE DAILY BEFORE MEALS October 02, 2011 October 02, 2011 Disconti nued Cyclobenzapri ne Hydrochlorid 10 mg PO THREE TIMES A DAY October 02, 2011 Active Methocarbamol 750 MG PO Q6H PRN For Muscle Spasm October 02, 2011 Active Insulin Glargine, Recombinan 10 UNITS SC BEDTIM E October 02, 2011 October 02, 2011 Disconti nued Simvastatin 20 mg PO BEDTIM E October 02, 2011 Active Problem List Medical Problem Onset Date Status Epigastric pain Active Procedures No known history of procedures. Relevant Diagnostic Tests and/or Laboratory Data Test Date/Time Result Interp. Ref. Range Result Co mment White Blood Count April 29, 2014 4:54am 14.62 1000/mm3 High 4.8-10.8 Red Blood Count April 29, 2014 4:54am 3.68 M/mm3 Low 4.20-5.40 Hemoglobin April 29, 2014 4:54am 11.9 g/dL Low 12.0-16.0 Hematocrit April 29, 2014 4:54am 34.1 % Low 37-47 Mean Corpuscular Volume April 29, 2014 4:54am 92.7 fL 81.0-99.0 Mean Corpuscular Hemoglobin April 29, 2014 4:54am 32.3 pg High 27-31 Mean Corpuscular Hemoglobin Concent April 29, 2014 4:54am 34.9 g/dL 33-37 Red Cell Distribution Width April 29, 2014 4:54am 12.7 % 11.5-14.5 Platelet Count April 29, 2014 4:54am 333 1000/mm3 140-440 Mean Platelet Volume April 29, 2014 4:54am 9.8 fL 7.4-10.4 Prothrombin Time April 29, 2014 4:54am 9.1 SECONDS Low 9.6-11.2 Prothromb Time International Ratio April 29, 2014 4:54am 0.9 Low 2.0-3.0 INR value valid only on patients on stabilized warfarin therapy. The recommended therapeutic range for warfarin (Coumadin) for most clinical indications is an INR of 2.0-3.0. An INR of 2.5-3.5 is recommended for patients with mechanical heart valves. Activated Partial Thromboplast Time April 29, 2014 4:54am 25.2 SECONDS 21.6-36.0 A target of 1.5-2.5 times the mean of the normal reference range is considered therapeutic. NOTE: APTT must NOT be used to monitor LMWH therapy. Contact [facility] for monitoring information. Urine Color April 29, 2014 4:16am TNP Test not performed Urinalysis cancelled, specimen was not obtained before the patient was discharged. Urine Clarity April 29, 2014 4:16am TNP Test not performed Urinalysis cancelled, specimen was not obtained before the patient was discharged. Urine pH April 29, 2014 4:16am TNP Test not performed Urinalysis cancelled, specimen was not obtained before the patient was discharged. Urine Specific [place] April 29, 2014 4:16am TNP Test not performed Urinalysis cancelled, specimen was not obtained before the patient was discharged. Urine Protein April 29, 2014 4:16am TNP Test not performed Urinalysis cancelled, specimen was not obtained before the patient was discharged. Urine Glucose (UA) April 29, 2014 4:16am TNP Test not performed Urinalysis cancelled, specimen was not obtained before the patient was discharged. Urine Ketones April 29, 2014 4:16am TNP Test not performed Urinalysis cancelled, specimen was not obtained before the patient was discharged. Urine Nitrate April 29, 2014 4:16am TNP Test not performed Urinalysis cancelled, specimen was not obtained before the patient was discharged. Urine Bilirubin April 29, 2014 4:16am TNP Test not performed Urinalysis cancelled, specimen was not obtained before the patient was discharged. Urine Urobilinogen April 29, 2014 4:16am TNP Test not performed Urinalysis cancelled, specimen was not obtained before the patient was discharged. Urine Leukocyte Esterase April 29, 2014 4:16am TNP Test not performed Urinalysis cancelled, specimen was not obtained before the patient was discharged. Urine Blood April 29, 2014 4:16am TNP Test not performed Urinalysis cancelled, specimen was not obtained before the patient was discharged. Blood Urea Nitrogen April 29, 2014 4:54am 9 mg/dL 7-17 Creatinine April 29, 2014 4:54am 0.44 mg/dL Low 0.52-1.04 Glomerular Filtration Rate Calc April 29, 2014 4:54am > 60 mL/min Uric Acid April 29, 2014 4:54am 4.4 mg/dL 2.5-7.5 Total Bilirubin April 29, 2014 4:54am 0.5 mg/dL 0.2-1.3 Direct Bilirubin April 29, 2014 4:54am 0 mg/dL 0-0.3 Aspartate Amino Transf (AST/SGOT) April 29, 2014 4:54am 28 U/L 14-36 Alanine Aminotransferase (ALT/SGPT) April 29, 2014 4:54am 23 U/L 9-52 Total Protein April 29, 2014 4:54am 5.2 g/dL Low 6.3-8.2 Albumin April 29, 2014 4:54am 2.9 g/dL Low 3.5-5.0 Alkaline Phosphatase April 29, 2014 4:54am 113 U/L 38-126 Amylase Level April 29, 2014 4:54am 50 U/L 30-110 Advance Directives Advance Directive Response Recorded Date/ Time Does the patient have a living will? No September 12, 2010 8:32am Does the patient have an advanced directive? No September 12, 2010 8:32am Power of Treasury Representative? No September 12, 2010 8:32am Chief Complaint and Reason for Visit Encounter Admit Date Chief Complaint Reason for V isit Departed Clinical April 29, 2014 3:57am OB CHECK Epigastric pain Hospital Discharge Instructions No known hospital discharge instructions. Hospital Discharge Medications Medication Dose Units Route Sig Qty Days Order Date Status Instructions Trazodone Hydrochloride 100 mg PO DAILY September Active Hydromorphone Hydrochloride 8 mg PO PRN For Pain October 02, 2011 Active Citalopram Hydrobromide 40 mg PO DAILY October 02, 2011 Active Gabapentin 100 mg PO EVERY MORNING October 02, 2011 Active Gabapentin 300 mg PO TWICE A DAY October 02, 2011 Active Pioglitazone Hcl 5 mg PO DAILY October 02, 2011 Discontinued Metformin 1000 mg PO TWICE DAILY BEFORE MEALS October 02, 2011 Discontinued Cyclobenzaprine Hydrochlorid 10 mg PO THREE TIMES A DAY October 02, 2011 Active Methocarbamol 750 MG PO Q6H PRN For Muscle Spasm October 02, 2011 Active Insulin Glargine, Recombinan 10 UNITS SC BEDTIME October 02, 2011 Discontinued Simvastatin 20 mg PO BEDTIME October 02, 2011 Active Encounters Encounter Facility Location Admit Date Discharge Date Atte nding Provider Departed Clinical [facility] OB Check April 29, 2014 3:57am April 29, 2014 11:45am Milton Galvez Recent Diagnosis Epigastric pain Functional Status No known functional status. Immunizations No known immunizations. Payers Payer Name Policy Type Covered Constitution Party Covered Constitution Party Id Relationship Subscriber Subscriber Id [place] MEDICAID Medicaid HILDA SILVEROUGHBY [id number] SELF/SAME PATIENT HILDA SILVEROUGHBY [id number] Plan of Care No known plan of care. Social History No known social history. Vital Signs Vital Reading Result Reference Range Collection Date/Time Height 5 ft April 29, 2014 5:13am Weight 190 lb April 29, 2014 5:13am Temperature 97.8 F 97.6 F-99.6 F April 29 5 7:50am Pulse 89 BPM 60-100 April 29, 2014 7:50am Respiration 20 RPM 12-24 April 29, 2014 7:50am Pulse Oximetry 98 % 95-100 April 29 15 7:50am Blood Pressure Systolic 101 100-140 Terry aris2014 7:50am Blood Pressure Diastolic 56 50-85 Roshan uary 2014 7:50am Body Mass Index n/a
--- OUTSIDE RECORDS SUMMARY | 2024-02-14 15:32 | XMS_ITS | Continuity of Care Document ---
Author Name [facility] Address [address] [place] [address] Organization [facility] Address [address] [place] [address] Care Team Providers Care Real Property Appraiser Name Role Phone Annette Padron Primary Care [...] Suicidal ideations Resolved Procedures Procedure Date Status Blood Culture November 09, [address] [...] 279 mosm/kg 275-295 Test Performed by: [place] [address] Warehouse Analyst: Marlon Morales MD , Ph D Calcium [...] Blood NO GROWTH AFTER 5 DAYS November 08, 2 016 7:15am Advance Directives Advance Directive Response Recorded Date/ Time Does the patient have a living will? No September 12, 2010 8:32am Does the patient have an advanced directive? No September 12, 2010 8:32am Power of Television Mechanic? No September 12, 2010 8:32am Hospital Discharge [...] Date Discharge Date Attending Provider Departed Emergency [facility] Emergency Department February 06, 2016 4:52pm February 06, 2016 6:13pm Departed Emergency [facility] Emergency Department November 12, 2015 4:49pm November 12, 2015 7:02pm Discharged Inpatient [facility] Intensive Care Unit November 08, 2015 9:46pm November 09, 2015 7:20pm Gregorio Bryant Departed Emergency [facility] Emergency Department June 22, 2015 5:50pm June 22, 2015 8:15pm Departed Emergency [facility] Emergency Department May 29, 2015 2:24pm May 29, 2015 3:33pm Departed Emergency [facility] Emergency Department May 28, 2015 1:10pm May 28, 2015 3:00pm Departed Emergency [facility] Emergency Department May 27, 2015 3:36pm May 27, 2015 6:45pm Departed Emergency [facility] Emergency Department May 26, 2015 4:01pm May 26, 2015 4:50pm Registered Clinical [facility] Orthopedics April 08, 2015 11:01am Swapnil Galarza Registered Clinical [facility] Orthopedics March 08, 2015 12:02pm Swapnil Galarza Registered Clinical [facility] Orthopedics February 23, 2015 2:30pm Swapnil Galarza Departed Emergency [facility] Emergency Department February 14, 2015 8:22pm February 14, 2015 11:02pm Departed Emergency [facility] Emergency Department February 12, 2015 4:35pm February 12, 2015 7:02pm Family History Query Response Instance Date Recorded [...] Subscriber Id [place] Medicaid HILDA CROWLEY [id number] SELF/SAME PATIENT HILDA CROWLEY [id number] Plan of Care No known plan of [...]
--- OUTSIDE RECORDS SUMMARY | 2024-02-14 15:32 | XMS_ITS | Continuity of Care Document ---
Author Name [facility] Address [address] [place] [id number] Organization [facility] Address [address] [place] [id number] Care Team Providers Care Ready Mix Truck Driver Name Role Phone Annette Maldonado Primary Care Physician Unavail able Allergies, Adverse Reactions, Alerts Allergen Type Severity Reaction Last Updated Verified Status No Known Drug Allergies Allergy February 19, 2018 Y Active Medications Active Medications Medication Dose Units Route Sig Qty Days Start Date Status Instructions Tramadol 50 MG ORAL THREE TIMES A DAY PRN For Pain November 09, 2015 Active Sitagliptin [Januvia] 100 MG ORAL DAILY November 09, 2015 Active Lamotrigine 200 MG ORAL DAILY Dec [...] 1 - 2 TAB ORAL Q6H 180 2017 Active Over the counter medication Docusate [...] moderate pain, 2 tablets for severe pain Benzonatate 200 MG ORAL THREE TIMES A DAY PRN For cough July 14, 2018 Active Prednisone 40 MG ORAL DAILY July 14, 2018 Active Take both tablets in the morning with food. Cyclobenzaprine 10 MG ORAL THREE TIMES A [...] Status Instructions Pioglitazone 5 MG ORAL DAILY Merrick e 2011October 02, 2011 Discont inued Metformin [Glucophage] 1000 [...] 09, 2015 January 11, 2018 Discont inued Trazodone 200 MG ORAL BEDTI ME July 30, 2016 July 14, 2018 Discont inued Clindamycin Hcl 300 MG ORAL FOUR TIMES DAILY 28 July 30, 2016 September 06, 2016 Discont inued Sulfamethoxa zole-Trimeth oprim [Bactrim Ds] 1 TAB ORAL TWICE A DAY 14 7 April 30, 2017 May 07, 2017 Discont inued Oxycodone-Ac etaminophen 1 TAB ORAL EVERY 4-6 HOURS PRN For pain, sever e 6 Decembe r 2017July 14, 2018 Discont inued Sulfamethoxa zole-Trimeth oprim [Bactrim Ds] [...] Fibromyalgia Active Hypercholesteremia Active Tobacco abuse Active Acute bronchitis Active Hx of suicide attempt Active Chronic pain disorder Active HTN (hypertension) Active Obesity Active Asthma Active Hypokalemia Active Hypokalemia Active Inactive/Resolved Problems Medical Problem Onset Date Status Suicidal ideations Resolved Epigastric pain Resolved Other sprain of right shoulder joint, initial en counter Inactive Procedures Procedure Date Status Chest 2 vw July 14, 2018 completed Shoulder 2 vw Min RT April 06, [...] January 12, 2018 3:16am 5.0 Urine Specific [place] January 12, 2018 3:16am 1.015 Urine Protein [...] AUREUS (MRSA) ISOLATED February 19, 2018 10:50am Chief Complaint and Reason for Visit Encounter Admit Date Chief Complaint Reason for V isit Departed Emergency July 14, 2018 5:07pm [facility] Discharge Instructions Additional Discharge Instructions Your c hest x-ray tonight shows no evidence of pneumonia. You had significant improvement in breathing and lung sounds following administration of the nebulizer medication. I am discharging you home tonight with prescriptions for a cough medication as well as prednisone to help with airway inflammation. You were also given an inhaler by our respiratory therapist. Use this every 4-6 hours with the spacer as needed for shortness of breath. I recommend that you follow-up with your primary care provider in 2-3 days. Return to the emergency room for any increased shortness of breath or development of fever. DO NOT TAKE THE CELEBREX WHILE ON THE PREDNISONE. AVOID USE OF NSAIDS WHILE ON THE PREDNISONE. Instruction/Education Provided Acute Bro nchitis, Adult (DC) Hospital Discharge Medications Medication Dose Units Route [...] 200 MG ORAL BEDTIME July 30, 2016 Discontinu ed Clindamycin Hcl [...] Active Celecoxib 200 MG ORAL DAILY 30 2017 Active Anti-inflammato ry, take with food [...] PRN For pain, severe April 06, 2018 Discontinu ed Benzonatate 200 MG ORAL THREE TIMES A DAY PRN For cough July 14, 2018 Active Prednisone 40 MG ORAL DAILY July 14, 2018 Active Take both tablets in the morning with food. Cyclobenzaprin e 10 MG ORAL THREE TIMES [...] Date Discharge/Departure Date Attending Provider Departed Emergency [facility] Emergency Department July 14, 2018 5:07pm July 14, 2018 6:46pm Departed Referred [facility] OBGYN May 12, 2018 5:32pm May 12, 2018 5:33pm Noemi Luo Discharged Recurring [facility] April 18, 2018 1:45pm May 30, 2018 8:55am Marcin Doe Departed Emergency [facility] Emergency Department April 06, 2018 9:21pm April 06, 2018 11:05pm Departed Surgical Day Care [facility] Surgical Services February 19, 2018 10:25am February 19, 2018 5:06pm Marcin Doe Discharged Inpatient [facility] Progressive Care Unit January 11, 2018 8:24pm January 12, 2018 4:59pm Santa Hassan Functional Status No known functional status. Immunizations No known immunizations. Payers Payer Name Policy Type Covered Libertarian Covered Libertarian Id Relationship Subscriber Subscriber Id [place] Medicaid JAIME WILLOUGHBY [id number] Self/Same as Patient [facility] [id number] SELF PAY Personal [place] MEDICAID (DO NOT USE) Medicaid [facility] [id number] Self/Same as Patient [facility] [id number] Plan of Care Instructions Acute Bronchitis, Adult (DC) Social History No known social history. Vital Signs Vital Reading Result Reference Range Collection Date/Time Height 5 ft July 14, 2018 5:11pm Weight 93.894 kg July 14, 2018 5:11pm Temperature 97.7 F 97.6 F-99.6 F July 14, 2018 5:11pm Pulse 109 BPM 60-100 July 14, 2018 6:44pm Respiration 24 RPM 12-24 July 14, 2018 6:44pm Pulse Oximetry 98 % 95-100 July 14 9 6:44pm Blood Pressure Systolic 124 100-140 [facility] 2018 6:44pm Blood Pressure Diastolic 87 50-85 [facility] 2018 6:44pm Body Mass Index 41.5 February 19, 2018 5:03pm
--- OUTSIDE RECORDS SUMMARY | 2024-02-14 15:32 | XMS_ITS | Continuity of Care Document ---
Author Name [facility] Address [address] [place] [address] Organization [facility] Address [address] [place] [address] Care Team Providers Care Advertising Layout Worker Name Role Phone Annette Padron Primary Care [...] Epigastric pain Active Procedures Procedure Date Status CHEST 2 VW June 22, 2015 active MRSA Screen May 26, 2015 completed ANKLE 3VW MIN LT April 08, 2015 active ANKLE 3VW MIN LT March 08, 2015 active ANKLE 3VW MIN LT February 12, 2015 completed LUMBAR SPINE 2-3 VW February 12, 2015 completed HIP 2VW MIN LT W AP PELVIS February 12, 2015 comp leted Relevant Diagnostic Tests and/or Laboratory Data Microbiology Results Procedure Source Result Collection Date/Time Resu lt Date/Time MRSA Screen Leg Staphylococcus Aureus-Mrsa May 26, 2015 4:25pm May 28, 2015 11:31am Advance Directives Advance Directive Response Recorded Date/ Time Does the patient have a living will? No September 12, 2010 8:32am Does the patient have an advanced directive? No September 12, 2010 8:32am Power of Print Color Operator? No September 12, 2010 8:32am Hospital Discharge [...] Date Discharge Date Attending Provider Departed Emergency [facility] Emergency Department June 22, 2015 5:50pm June 22, 2015 8:15pm Departed Emergency [facility] Emergency Department May 29, 2015 2:24pm May 29, 2015 3:33pm Departed Emergency [facility] Emergency Department May 28, 2015 1:10pm May 28, 2015 3:00pm Departed Emergency [facility] Emergency Department May 27, 2015 3:36pm May 27, 2015 6:45pm Departed Emergency [facility] Emergency Department May 26, 2015 4:01pm May 26, 2015 4:50pm Registered Clinical [facility] Orthopedics April 08, 2015 11:01am Swapnil Galarza Registered Clinical [facility] Orthopedics March 08, 2015 12:02pm Swapnil Galarza Registered Clinical [facility] Orthopedics February 23, 2015 2:30pm Swapnil Galarza Departed Emergency [facility] Emergency Department February 14, 2015 8:22pm February 14, 2015 11:02pm Departed Emergency [facility] Emergency Department February 12, 2015 4:35pm February 12, 2015 7:02pm Departed Emergency [facility] Emergency Department November 30, 2014 5:26pm November 30, 2014 7:30pm Departed Emergency [facility] Emergency Department August 16, 2014 9:26pm August 16, 2014 10:25pm Departed Emergency [facility] Emergency Department August 06, 2014 4:03pm August 06, 2014 4:55pm Functional Status No known functional status. Immunizations No known immunizations. Payers Payer Name Policy Type Covered Green Party Covered Green Party Id Relationship Subscriber Subscriber Id [place] Medicaid HILDA CROWLEY [id number] SELF/SAME PATIENT HILDA CROWLEY [id number] Plan of Care No known plan of care. Social History No known social history. Vital Signs Vital Reading Result Reference Range Collection Date/Time Height 5 ft April 29, 2014 5:13am Weight n/a Temperature n/a Pulse n/a Respiration n/a Pulse Oximetry n/a Blood Pressure Systolic n/a Blood Pressure Diastolic n/a Body Mass Index n/a
--- OUTSIDE RECORDS SUMMARY | 2024-02-14 15:32 | XMS_ITS | Continuity of Care Document ---
Author Name [facility] Address [address] [place] [address] Organization [facility] Address [address] [place] [address] Care Team Providers Care Elementary School Counselor Name Role Phone Annette Padron Primary Care [...] Acti ve Trazodone July 30, 2016 Active Cyclobenzaprine 10 mg ORAL THREE AMOS ES A DAY September 06, 2016 Active Discontinued Medications Medication Dose Units [...] 28 July 30, 2016 September 06, 2016 Discontinued [...] 3 vw Min RT September 06, 2016 active EMERGENCY DEPT VISIT June 05, 2016 active [...] 279 mosm/kg 275-295 Test Performed by: [place] [address] Wire Fence Erector: Marlon Morales MD , Ph D Calcium [...] have a copy on file here at [facility]? No July 30, 2016 11:08pm Does patient have an Advanced Directive? No September 12, 2010 8:32am Pt has a Living Will? No September 12 8:32am Pt has a Power of Commercial Lines Account Manager? No September 12, 2010 8:32am Chief Complaint and Reason for Visit Encounter Admit Date Chief Complaint Reason for V carent Departed Emergency September 06, 2016 6:30pm [facility] Discharge Instructions No known hospital discharge [...] FOUR TIMES DAILY 28 July 30, 2016 Discontinue d Cyclobenzaprine 10 mg ORAL THREE TIMES A DAY September 06, 2016 Active Encounters Encounter Facility Location Admit/Visit Date Discharge/Departure Date Attending Provider Departed Emergency [facility] Emergency Department September 06, 2016 6:30pm September 06, 2016 8:08pm Registered Recurring [facility] September 03, 2016 4:30pm Merrick Mason Departed Referred [facility] Pathology August 29, 2016 9:23pm August 29, 2016 9:24pm Ghulam Fuentes Departed Referred [facility] August 29, 2016 4:52pm August 29, 2016 4:53pm Ghulam Fuentes Departed Emergency [facility] Emergency Department July 30, 2016 8:10pm July 30, 2016 11:16pm Departed Emergency [facility] Emergency Department June 05, 2016 6:17pm June 05, 2016 8:36pm Departed Emergency [facility] Emergency Department April 29, 2016 3:10pm April 29, 2016 4:27pm Departed Emergency [facility] Emergency Department February 06, 2016 4:52pm February 06, 2016 6:13pm Departed Emergency [facility] Emergency Department November 12, 2015 4:49pm November 12, 2015 7:02pm Discharged Inpatient [facility] Intensive Care Unit November 08, 2015 9:46pm November 09, 2015 7:20pm Gregorio Bryant Family History Query Response Instance Date Recorded Comment Grandparents Diabetes Mellitus Cancer November 08, 2015 11:34pm Functional Status No known functional status. Immunizations No known immunizations. Payers Payer Name Policy Type Covered Democrat Covered Democrat Id Relationship Subscriber Subscriber Id MEDICAID [facility] Medicaid HILDA CROWLEY [id number] Self/Same as Patient HILDA CROWLEY [id number] SELF PAY Personal [place] MED[place] (DO NOT USE) Medicaid HILDA CROWLEY [id number] Self/Same as Patient HILDA CROWLEY [id number] Plan of Care No Known Plan of [...] ft September 06, 2016 6: 34pm Weight 93.894 kg September 06, 2016 6: 34pm Temperature 97.7 F 97.6 F-99.6 F September 06, 2016 6 :34pm Pulse 81 BPM 60-100 September 06, 2016 6: 34pm Respiration 16 RPM 12-24 September 06, 2016 6: 34pm Pulse Oximetry 97 % 95-100 September 06, 2016 6:34pm Blood Pressure Systolic 135 100-140 September 06, 2016 6:34pm Blood Pressure Diastolic 69 50-85 September 06, 2016 6:34pm Body Mass Index 34.0 November 07 6 9:40pm
--- OUTSIDE RECORDS SUMMARY | 2024-02-14 15:32 | XMS_ITS | Continuity of Care Document ---
Author Name [facility] Address [address] [place] [address] Organization [facility] Address [address] [place] [address] Care Team Providers Care Yeast Pumper Name Role Phone Annette Padron Primary Care [...] No September 12, 2010 8:32am Power of Guillotine Trimmer? No September 12, 2010 8:32am Hospital Discharge [...] Date Discharge Date Attending Provider Departed Emergency [facility] Emergency Department May 27, 2015 3:36pm May 27, 2015 6:45pm Departed Emergency [facility] Emergency Department May 26, 2015 4:01pm May 26, 2015 4:50pm Registered Clinical [facility] Orthopedics April 08, 2015 11:01am Swapnil Galarza Registered Clinical [facility] Orthopedics March 08, 2015 12:02pm Swapnil Galarza Registered Clinical [facility] Orthopedics February 23, 2015 2:30pm Swapnil Galarza Departed Emergency [facility] Emergency Department February 14, 2015 8:22pm February 14, 2015 11:02pm Departed Emergency [facility] Emergency Department February 12, 2015 4:35pm February 12, 2015 7:02pm Departed Emergency [facility] Emergency Department November 30, 2014 5:26pm November 30, 2014 7:30pm Departed Emergency [facility] Emergency Department August 16, 2014 9:26pm August 16, 2014 10:25pm Departed Emergency [facility] Emergency Department August 06, 2014 4:03pm August 06, 2014 4:55pm Departed Emergency [facility] Emergency Department June 13, 2014 1:31pm June 13, 2014 3:27pm Departed Emergency [facility] Emergency Department May 31, 2014 4:56pm May 31, 2014 8:11pm Functional Status No known functional status. Immunizations No known immunizations. Payers Payer Name Policy Type Covered Republican Covered Republican Id Relationship Subscriber Subscriber Id [place] Medicaid [facility] [id number] SELF/SAME PATIENT [facility] [id number] Plan of Care No known plan of care. Social History No known social history. Vital Signs Vital Reading Result Reference Range Collection Date/Time Height 5 ft April 29, 2014 5:13am Weight n/a Temperature n/a Pulse n/a Respiration n/a Pulse Oximetry n/a Blood Pressure Systolic n/a Blood Pressure Diastolic n/a Body Mass Index n/a
[2024-02-14 21:31] LABS: Bilirubin, Direct 0.2 mg/dL (0.0-0.2)
[2024-02-17 11:20] LABS: Hepatitis C Ab w Rflx HCV PCR Negative (Negative)
[2024-02-17 11:38] LABS: Hep B Core Antibody Negative (Negative)
[2024-02-17 11:47] LABS: HIV-1/2 Ag & Ab Screen Negative (Negative)
[2024-02-17 12:31] LABS: Chlamydia Result Negative (Negative); GC Result Negative (Negative)
== END 2024-02-14 15:05 | disposition home or self-care (01) ==
LOC: NCHCN 15:04
PROVIDERS: PCP Nurse Practitioner Family; Visit Provider Family Medicine
DX: Z11.59 Encounter for screening for other viral diseases (principal)
CPT/HCPCS: 86704; 86803; 87389; 87491; 87591; 82248

== ENCOUNTER 2024-02-17 18:25 | Outpatient (REF) | payer MEDICARE, SELFPAY ==
--- OUTSIDE RECORDS SUMMARY | 2024-02-17 18:28 | XMS_ITS ---
Author Organization Unknown Address [address] [place] [address] [phone] Phone Care Team Providers Care Shoulder Boner Name Role Phone HENOK MARIE Crawford Attending Unavailable JES DELAROSA Primary Unavailable Results HEMOGLOBIN A1C* - Collect Da te/Time: 06/27/2021 16:40 [facility] ID: [id number] [address] [place] [address], [address] LOINC: 33801-0 Test Value Unit Reference Range Code Code System Flag Hgb A1c 11.2 % L=3.8 H=5.7 4548-4 LOINC H MEAN BLOOD GLUCOSE 287 mg/dL 03164-2 LOINC COMPREHENSIVE METABOLIC PANE L (CMP) - Collect Date/Time: 06/27/2021 16:16 [facility] ID: [id number] [address] [place] [address], [address] LOINC: 18796-8 Test Value Unit Reference Range Code Code [...] H=34 2028-9 LOINC ANION GAP 15.5 mmol/L 29005-4 LOINC CALCIUM SERUM 9.9 mg/dL L=8.2 H=10.2 80676-1 LOINC BILIRUBIN TOTAL 0.9 mg/dL L=0.0 H=1.3 1975-2 LOINC ALK. PHOS. 100 U/L L=46 H=116 6768-6 LOINC SGOT (AST) 30 U/L L=15 H=37 1920-8 LOINC SGPT (ALT) 54 U/L L=12 H=78 1742-6 LOINC TOTAL PROTEIN 8.0 gm/dL L=6.0 H=8.0 2885-2 LOINC ALBUMIN 4.3 gm/dL L=3.4 H=5.0 1751-7 LOINC AGE 45 years eGFR (non-Afr.Amer.) 71 mL/min 58264-5 LOINC eGFR (Afr-Moroccan) 86 mL/min 59873-5 LOINC CBC W/ DIFFERENTIAL* - Colle ct Date/Time: 06/27/2021 16:16 [facility] ID: [id number] [address] [place], [place], [address] LOINC: 41454-8 Test Value Unit Reference Range Code Code System Flag WBC 11.97 th/cmm L=5.00 H=10.00 6690-2 LOINC H NEUT % 44.6 % L=40.0 H=80.0 LYMPH % 46.4 % L=10.0 H=50.0 MONO % 7.1 % L=2.0 H=12.0 71578-9 LOINC EOS % 1.1 % L=0.0 H=8.0 BASO % 0.5 % L=0.0 H=3.0 IG % 0.3 % L=0.0 H=1.1 2514-8 LOINC NRBC % 0.0 % L=0.0 H=0.0 63807-1 LOINC NEUT abs count 5.3 th/cmm L=1.6 H=8.4 751-8 LOINC LYMPH abs count 5.6 th/cmm L=1.5 H=4.0 731-0 LOINC H MONO abs count 0.9 th/cmm L=0.2 H=1.0 742-7 LOINC EOS abs count 0.1 th/cmm L=0.0 H=0.5 711-2 LOINC BASO abs count 0.1 th/cmm L=0.0 H=0.2 704-7 LOINC IG abs count 0.0 th/cmm L=0.0 H=0.1 88231-7 LOINC NRBC abs count 0.0 mil/cmm L=0.0 H=0.0 02103-9 LOINC RBC 4.86 mil/cmm L=3.90 H=5.40 789-8 [...] em Smoking History Current every day smoker [id number] SNOMED CT Sex Female Medications Medication Start Date End Date Route Frequency Dose Code Code System Medication Instructions Home Meds ACTOS TABLET 10/24/2018 07/01/2021 ORAL DAILY 1 TABLET R xNorm TAKE 1 TABLET ORAL DAILY Labetalol HCl 200MG Oral Tablet 10/24/2018 07/01/2021 ORAL DAILY 200 MILLIGRAMS 86481 2 RxNorm TAKE 200 MILLIGRAMS ORAL DAILY NEURONTIN 600MG ORAL TABLET 10/24/2018 07/01/2021 ORAL TWICE A DAY 600 MILLIGRAMS RxNorm TAKE 600 MILLIGRAMS ORAL TWICE A DAY SEROQUEL 300MG ORAL TABLET 10/24/2018 07/01/2021 ORAL DAILY 300 MILLIGRAMS RxNorm TAKE 300 MILLIGRAMS ORAL DAILY metFORMIN HCl 1000MG Oral Tablet, Extended Release 10/24/2018 07/01/2021 ORAL TWICE A DAY 80380 94 RxNorm TAKE 000 MILLIGRAMS ORAL TWICE A DAY Cyclobenzapr ine 10MG Oral Tablet 12/14/2018 10/26/2021 ORAL THREE TIMES A DAY 10 MILLIGRAMS 34596 8 RxNorm TAKE 10 MILLIGRAMS ORAL THREE TIMES A DAY JANUVIA 100MG ORAL TABLET 12/14/2018 07/01/2021 ORAL DAILY 100 MILLIGRAMS RxNorm TAKE 100 MILLIGRAMS ORAL DAILY LAMICTAL 200MG ORAL TABLET 12/14/2018 07/01/2021 ORAL DAILY 200 MILLIGRAMS RxNorm TAKE 200 MILLIGRAMS ORAL DAILY Lisinopril 20MG Oral Tablet 12/14/2018 07/01/2021 ORAL DAILY 20 MILLIGRAMS 14444 7 RxNorm TAKE 20 MILLIGRAMS ORAL DAILY [...] 07/26/2021 ORAL TWICE A DAY 1000 MILLIGRAMS 71871 94 RxNorm TAKE 1000 MILLIGRAMS ORAL TWICE A DAY Ondansetron 4MG Oral Tablet, Disintegrati ng 07/05/2021 10/26/2021 ORAL NEEDED EVERY 6 HOURS 1 TABLET 52229 4 RxNorm TAKE 1 TABLET ORAL NEEDED EVERY 6 HOURS FOR Nausea/Vomi ting Phenergan 25MG Rectal Suppository 07/26/2021 10/26/2021 RECTAL DAILY 1 SUPPOSITORY 25271 7 RxNorm INSERT 1 SUPPOSITORY RECTAL DAILY HYDROcodone bitartrate-a cetaminophen 5MG-325MG Oral Tablet 09/19/2021 10/26/2021 ORAL EVERY 6 HOURS 1 TABLET 51316 2 RxNorm TAKE 1 TABLET ORAL EVERY 6 HOURS Zithromax 250MG Oral Tablet 04/17/2022 01/25/2023 ORAL DAILY 1 TABLET 57348 6 RxNorm TAKE 1 TABLET ORAL DAILY predniSONE 20MG Oral Tablet 04/17/2022 01/07/2023 ORAL DAILY 2 TABLET 73949 5 RxNorm TAKE 2 TABLET ORAL DAILY Percocet 5MG-325MG Oral Tablet 01/07/2023 06/23/2023 ORAL NEEDED EVERY 4 HOURS 1 TABLET 27610 40 RxNorm TAKE 1 TABLET ORAL NEEDED EVERY 4 HOURS predniSONE 20MG Oral Tablet 01/07/2023 01/07/2023 ORAL DAILY 2 TABLET 19575 5 RxNorm TAKE 2 TABLET ORAL DAILY predniSONE 20MG Oral Tablet 01/07/2023 06/23/2023 ORAL DAILY 2 TABLET 67955 5 RxNorm TAKE 2 TABLET ORAL DAILY LaMICtal 150MG Oral Tablet 06/23/2023 11/11/2023 ORAL DAILY 1 TABLET 53179 1 RxNorm TAKE 1 TABLET ORAL DAILY HumaLOG 100U/1ML Injection Solution 06/23/2023 Unknown INJECTION DAILY 1 unit(s) 18790 8 RxNorm 1 EACH INJECTION DAILY Ondansetron 4MG Oral Tablet 06/23/2023 01/31/2024 ORAL NEEDED EVERY 6 HOURS 4 MILLIGRAMS 06075 2 RxNorm TAKE 4 MILLIGRAMS ORAL NEEDED EVERY 6 HOURS SEROquel 100MG Oral Tablet 06/23/2023 11/11/2023 ORAL BEDTIME 150 MILLIGRAMS 11075 9 RxNorm TAKE 150 MILLIGRAMS ORAL BEDTIME Spironolacto ne 100MG Oral Tablet 06/23/2023 Unknown ORAL DAILY 100 MILLIGRAMS 2 RxNorm TAKE 100 MILLIGRAMS ORAL DAILY Vraylar 6MG Oral Capsule 06/23/2023 11/11/2023 ORAL DAILY 6 MILLIGRAMS 35182 78 RxNorm TAKE 6 MILLIGRAMS ORAL DAILY [...] Status Code Code System SLURRED SPEECH active 951539054 SNOME D-CT DIABETES 2 active 61697158 SNOMED-CT BIPOLAR DISORDER active 05315518 SNO MED-CT PTSD 09/19/2021 resolved 57438316 SNOMED-CT FIBROMYALGIA 09/19/2021 resolved 777289477 SNOMED -CT DIABETES 2 07/05/2021 resolved 14906972 SNOMED-C T FALL FROM STAIRS 06/23/2023 resolved 442476531 SN OMED-CT CLOSED FRACTURE OF RIGHT HUMERUS 06/23/2023 resolved 09726049985153288 SNOMED-CT HTN 09/19/2021 resolved 06097212 SNOMED-CT BIPOLAR DISORDER 09/19/2021 resolved 98380284 SN OMED-CT Allergies and Adverse Reactions Allergy Substance Reaction Severity Start Date Concern Status Co de Code System LISINOPRIL Active 74518 RxNorm AMBIEN Altered Mental Status (SNOMED-CT: 274633744) Active 725930 RxNorm Plan of Treatment Lab Draw 07/30/2020 Lab Draw 05/28/2020 US ABDOMEN LIMITED 1 ORGAN 05/06/2023 US RIGHT UPPER QUAD 07/05/2021 Encounters Encounter Diagnosis Start Date Code Code Sys tem Right upper quadrant pain 06/27/2021 165645422 SN OMED-CT Personal Care Team Section Performer Name Performer Role Active Date Inactive Da te
--- OUTSIDE RECORDS SUMMARY | 2024-02-17 18:28 | XMS_ITS ---
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 Name Role Phone HENOK Crawford Attending Unavailable [...] Dictated by: MAGALI CHAN MD Transcribed by: [facility] 07/05/21/11:04 D Monday, July 05, 2021 8:40:26 AM [id number] Electronically Reviewed and Signed By: ALBERTO CHAN MD 07/05/21 13:49 Copy for: HENOK Crawford via fax Copy for: JES DELAROSA via fax Copy for: [facility] Social History Type Status Start Date End Date Code Code Syst em Smoking History Current every day smoker [id number] SNOMED CT Sex Female Medications Medication Start Date End Date Route Frequency Dose Code Code System Medication Instructions Home Meds metFORMIN HCl 1000MG Oral Tablet, Extended Release 12/14/2018 07/26/2021 ORAL TWICE A DAY 1000 MILLIGRAMS 9781177 RxNorm TAKE 1000 MILLIGRAMS ORAL TWICE A DAY Cyclobenzap rine 10MG Oral Tablet 12/14/2018 10/26/2021 ORAL THREE TIMES A DAY 10 MILLIGRAMS 112896 RxNorm TAKE 10 MILLIGRAMS ORAL THREE TIMES A DAY Ondansetron 4MG Oral Tablet, Disintegrat ing 07/05/2021 10/26/2021 ORAL NEEDED EVERY 6 HOURS 1 TABLET 471764 RxNorm TAKE 1 TABLET ORAL NEEDED EVERY 6 HOURS FOR Nausea/Vomit ing Phenergan 25MG Rectal Suppository 07/26/2021 10/26/2021 RECTAL DAILY 1 SUPPOSITORY 028398 RxNorm INSERT 1 SUPPOSITORY RECTAL DAILY HYDROcodone bitartrate- acetaminoph en 5MG-325MG Oral Tablet 09/19/2021 10/26/2021 ORAL EVERY 6 HOURS 1 TABLET 644229 RxNorm TAKE 1 TABLET ORAL EVERY 6 HOURS Zithromax 250MG Oral Tablet 04/17/2022 01/25/2023 ORAL DAILY 1 TABLET 521724 RxNorm TAKE 1 TABLET ORAL DAILY predniSONE 20MG Oral Tablet 04/17/2022 01/07/2023 ORAL DAILY 2 TABLET 982675 RxNorm TAKE 2 TABLET ORAL DAILY predniSONE 20MG Oral Tablet 01/07/2023 01/07/2023 ORAL DAILY 2 TABLET 277352 RxNorm TAKE 2 TABLET ORAL DAILY Percocet 5MG-325MG Oral Tablet 01/07/2023 06/23/2023 ORAL NEEDED EVERY 4 HOURS 1 TABLET 0538704 RxNorm TAKE 1 TABLET ORAL NEEDED EVERY 4 HOURS predniSONE 20MG Oral Tablet 01/07/2023 06/23/2023 ORAL DAILY 2 TABLET 906235 RxNorm TAKE 2 TABLET ORAL DAILY SEROquel 100MG Oral Tablet 06/23/2023 11/11/2023 ORAL BEDTIME 150 MILLIGRAMS 053496 RxNorm TAKE 150 MILLIGRAMS ORAL BEDTIME LaMICtal 150MG Oral Tablet 06/23/2023 11/11/2023 ORAL DAILY 1 TABLET RxNorm TAKE 1 TABLET ORAL DAILY Ondansetron 4MG Oral Tablet 06/23/2023 01/31/2024 ORAL NEEDED EVERY 6 HOURS 4 MILLIGRAMS 652850 RxNorm TAKE 4 MILLIGRAMS ORAL NEEDED EVERY 6 HOURS HumaLOG 100U/1ML Injection Solution 06/23/2023 Unknown INJECT ION DAILY 1 unit(s) 328679 RxNorm 1 EACH INJECTION DAILY Spironolact one 100MG Oral Tablet 06/23/2023 Unknown ORAL DAILY 100 MILLIGRAMS 472541 RxNorm TAKE 100 MILLIGRAMS ORAL DAILY Vraylar 6MG Oral Capsule 06/23/2023 11/11/2023 ORAL DAILY 6 MILLIGRAMS 6927669 RxNorm TAKE 6 MILLIGRAMS ORAL DAILY Mounjaro [...] Status Code Code System SLURRED SPEECH active 759132553 SNOME D-CT DIABETES 2 active 03979898 SNOMED-CT BIPOLAR DISORDER active 88943072 SNO MED-CT PTSD 09/19/2021 resolved 35440939 SNOMED-CT FIBROMYALGIA 09/19/2021 resolved 977624373 SNOMED -CT DIABETES 2 07/05/2021 resolved 17026721 SNOMED-C T FALL FROM STAIRS 06/23/2023 resolved 503602266 SN OMED-CT CLOSED FRACTURE OF RIGHT HUMERUS 06/23/2023 resolved 65823527344383628 SNOMED-CT HTN 09/19/2021 resolved 11870885 SNOMED-CT BIPOLAR DISORDER 09/19/2021 resolved 87540281 SN OMED-CT Allergies and Adverse Reactions Allergy Substance Reaction Severity Start Date Concern Status Co de Code System LISINOPRIL Active 26764 RxNorm AMBIEN Altered Mental Status (SNOMED-CT: 338036030) Active 849219 RxNorm Plan of Treatment Lab Draw 07/30/2020 Lab Draw 05/28/2020 US ABDOMEN LIMITED 1 ORGAN 05/06/2023 US RIGHT UPPER QUAD 07/05/2021 Encounters Encounter Diagnosis Start Date Code Code Sys tem Right upper quadrant pain 07/05/2021 SN OMED-CT Personal Care Team Section Performer Name Performer Role Active Date Inactive Da donita
--- OUTSIDE RECORDS SUMMARY | 2024-02-17 18:28 | XMS_ITS ---
Author Organization Unknown Address [address] [place] [address] [phone] Phone Care Team Providers Care Digital Community Manager Name Role Phone ROSA JOE Anthony Attending Unavailable JES DELAROSA Primary Unavailable Social History Type Status Start Date End Date Code Code Syst em Smoking History Current every day smoker 055461922 SNOMED CT Sex Female Medications Medication Start Date End Date Route Frequency Dose Code Code System Medication Instructions Home Meds ACTOS TABLET 10/24/2018 07/01/2021 ORAL DAILY 1 TABLET R xNorm TAKE 1 TABLET ORAL DAILY Labetalol HCl 200MG Oral Tablet 10/24/2018 07/01/2021 ORAL DAILY 200 MILLIGRAMS 25091 2 RxNorm TAKE 200 MILLIGRAMS ORAL DAILY NEURONTIN 600MG ORAL TABLET 10/24/2018 07/01/2021 ORAL TWICE A DAY 600 MILLIGRAMS RxNorm TAKE 600 MILLIGRAMS ORAL TWICE A DAY SEROQUEL 300MG ORAL TABLET 10/24/2018 07/01/2021 ORAL DAILY 300 MILLIGRAMS RxNorm TAKE 300 MILLIGRAMS ORAL DAILY metFORMIN HCl 1000MG Oral Tablet, Extended Release 10/24/2018 07/01/2021 ORAL TWICE A DAY 43053 94 RxNorm TAKE 000 MILLIGRAMS ORAL TWICE A DAY Cyclobenzapr ine 10MG Oral Tablet 12/14/2018 10/26/2021 ORAL THREE TIMES A DAY 10 MILLIGRAMS 77141 8 RxNorm TAKE 10 MILLIGRAMS ORAL THREE TIMES A DAY JANUVIA 100MG ORAL TABLET 12/14/2018 07/01/2021 ORAL DAILY 100 MILLIGRAMS RxNorm TAKE 100 MILLIGRAMS ORAL DAILY LAMICTAL 200MG ORAL TABLET 12/14/2018 07/01/2021 ORAL DAILY 200 MILLIGRAMS RxNorm TAKE 200 MILLIGRAMS ORAL DAILY Lisinopril 20MG Oral Tablet 12/14/2018 07/01/2021 ORAL DAILY 20 MILLIGRAMS 50114 7 RxNorm TAKE 20 MILLIGRAMS ORAL DAILY [...] 07/26/2021 ORAL TWICE A DAY 1000 MILLIGRAMS 38524 94 RxNorm TAKE 1000 MILLIGRAMS ORAL TWICE A DAY Ondansetron 4MG Oral Tablet, Disintegrati ng 07/05/2021 10/26/2021 ORAL NEEDED EVERY 6 HOURS 1 TABLET 04889 4 RxNorm TAKE 1 TABLET ORAL NEEDED EVERY 6 HOURS FOR Nausea/Vomi ting Phenergan 25MG Rectal Suppository 07/26/2021 10/26/2021 RECTAL DAILY 1 SUPPOSITORY 85506 7 RxNorm INSERT 1 SUPPOSITORY RECTAL DAILY HYDROcodone bitartrate-a cetaminophen 5MG-325MG Oral Tablet 09/19/2021 10/26/2021 ORAL EVERY 6 HOURS 1 TABLET 77681 2 RxNorm TAKE 1 TABLET ORAL EVERY 6 HOURS Zithromax 250MG Oral Tablet 04/17/2022 01/25/2023 ORAL DAILY 1 TABLET 58103 6 RxNorm TAKE 1 TABLET ORAL DAILY predniSONE 20MG Oral Tablet 04/17/2022 01/07/2023 ORAL DAILY 2 TABLET 24595 5 RxNorm TAKE 2 TABLET ORAL DAILY Percocet 5MG-325MG Oral Tablet 01/07/2023 06/23/2023 ORAL NEEDED EVERY 4 HOURS 1 TABLET 63466 40 RxNorm TAKE 1 TABLET ORAL NEEDED EVERY 4 HOURS predniSONE 20MG Oral Tablet 01/07/2023 01/07/2023 ORAL DAILY 2 TABLET 79144 5 RxNorm TAKE 2 TABLET ORAL DAILY predniSONE 20MG Oral Tablet 01/07/2023 06/23/2023 ORAL DAILY 2 TABLET 54314 5 RxNorm TAKE 2 TABLET ORAL DAILY LaMICtal 150MG Oral Tablet 06/23/2023 11/11/2023 ORAL DAILY 1 TABLET 1 RxNorm TAKE 1 TABLET ORAL DAILY HumaLOG 100U/1ML Injection Solution 06/23/2023 Unknown INJECTION DAILY 1 unit(s) 56973 8 RxNorm 1 EACH INJECTION DAILY Ondansetron 4MG Oral Tablet 06/23/2023 01/31/2024 ORAL NEEDED EVERY 6 HOURS 4 MILLIGRAMS 2 RxNorm TAKE 4 MILLIGRAMS ORAL NEEDED EVERY 6 HOURS SEROquel 100MG Oral Tablet 06/23/2023 11/11/2023 ORAL BEDTIME 150 MILLIGRAMS 74375 9 RxNorm TAKE 150 MILLIGRAMS ORAL BEDTIME Spironolacto ne 100MG Oral Tablet 06/23/2023 Unknown ORAL DAILY 100 MILLIGRAMS 2 RxNorm TAKE 100 MILLIGRAMS ORAL DAILY Vraylar 6MG Oral Capsule 06/23/2023 11/11/2023 ORAL DAILY 6 MILLIGRAMS 07899 78 RxNorm TAKE 6 MILLIGRAMS ORAL DAILY [...] Status Code Code System SLURRED SPEECH active 110187455 SNOME D-CT DIABETES 2 active 28419626 SNOMED-CT BIPOLAR DISORDER active 08877419 SNO MED-CT PTSD 09/19/2021 resolved 13525625 SNOMED-CT FIBROMYALGIA 09/19/2021 resolved 243338378 SNOMED -CT DIABETES 2 07/05/2021 resolved 86198198 SNOMED-C T FALL FROM STAIRS 06/23/2023 resolved 304123936 SN OMED-CT CLOSED FRACTURE OF RIGHT HUMERUS 06/23/2023 resolved 29304525021911971 SNOMED-CT HTN 09/19/2021 resolved 87019444 SNOMED-CT BIPOLAR DISORDER 09/19/2021 resolved 33340819 SN OMED-CT Allergies and Adverse Reactions Allergy Substance Reaction Severity Start Date Concern Status Co de Code System LISINOPRIL Active 73623 RxNorm AMBIEN Altered Mental Status (SNOMED-CT: 833808697) Active 479110 RxNorm Plan of Treatment Lab Draw 07/30/2020 Lab Draw 05/28/2020 US ABDOMEN LIMITED 1 ORGAN 05/06/2023 US RIGHT UPPER QUAD 07/05/2021 Encounters Encounter Diagnosis Start Date Code Code Sys tem Insomnia, unspecified 05/26/2021 SNOMED -CT Personal Care Team Section Performer Name Performer Role Active Date Inactive Da te
--- OUTSIDE RECORDS SUMMARY | 2024-02-17 18:28 | XMS_ITS ---
Author Organization Unknown Address [address] [place] [address] [phone] Phone Care Team Providers Care Tourism Radio Presenter Name Role Phone BALAJI URSULA Registered Nurse [...] D Saturday, July 01, 2021 2:53:37 PM [id number] Electronically Reviewed and Signed By: KELLI DEL TORO RADIOLOGIST 07/04/21 07:54 Copy for: UNLISTED PROVIDER - REQUESTED Copy for: JES DELAROSA via fax Copy for: 185 [facility] INFORMATION MG[facility] DISCHARGED Social History Type Status Start Date End Date Code Code Syst em Smoking History Current every day smoker 590166636 SNOMED CT Sex Female Vital Signs Vital Sign Value Unit [place] Value [place] Unit Date/Time Recent/Initial? Code Code System Body Mass Index 44.00 kg/m2 07/01/2021 11:37 Initial 39018 -5 LOINC Systolic Blood Pressure 158 mm[Hg] [...] Saturation 99 % 2021 13:39 Most Recent 20144 -5 LOINC O2 Saturation 98 % 2021 11:37 Initial 94063 -5 LOINC Pulse 109.0 /min 07/01/2021 13:39 Most Recent 8867- 4 LOINC Pulse 92.0 /min 07/01/2021 11:37 Initial 8867- 4 LOINC Respiration 16 /min 07/02/19 13:39 Most Recent 9279- 1 LOINC Respiration 16 /min 07/02/19 11:37 Initial 9279- 1 LOINC Temperature 37.0 Jazmine 98.6 F 07/02/19 11:37 Initial 8310- 5 LOINC Weight 102.20 kg 225.31 lbs 07/01/2021 11:37 Initial 47028 -7 [facility] Medications Medication Start Date End Date Route Frequency Dose Code Code System Medication Instructions Home Meds ACTOS TABLET 10/24/2018 07/01/2021 ORAL DAILY 1 TABLET R xNorm TAKE 1 TABLET ORAL DAILY Labetalol HCl 200MG Oral Tablet 10/24/2018 07/01/2021 ORAL DAILY 200 MILLIGRAMS 25706 2 RxNorm TAKE 200 MILLIGRAMS ORAL DAILY NEURONTIN 600MG ORAL TABLET 10/24/2018 07/01/2021 ORAL TWICE A DAY 600 MILLIGRAMS RxNorm TAKE 600 MILLIGRAMS ORAL TWICE A DAY SEROQUEL 300MG ORAL TABLET 10/24/2018 07/01/2021 ORAL DAILY 300 MILLIGRAMS RxNorm TAKE 300 MILLIGRAMS ORAL DAILY metFORMIN HCl 1000MG Oral Tablet, Extended Release 10/24/2018 07/01/2021 ORAL TWICE A DAY 18903 94 RxNorm TAKE 000 MILLIGRAMS ORAL TWICE A DAY Cyclobenzapr ine 10MG Oral Tablet 12/14/2018 10/26/2021 ORAL THREE TIMES A DAY 10 MILLIGRAMS 65449 8 RxNorm TAKE 10 MILLIGRAMS ORAL THREE TIMES A DAY JANUVIA 100MG ORAL TABLET 12/14/2018 07/01/2021 ORAL DAILY 100 MILLIGRAMS RxNorm TAKE 100 MILLIGRAMS ORAL DAILY LAMICTAL 200MG ORAL TABLET 12/14/2018 07/01/2021 ORAL DAILY 200 MILLIGRAMS RxNorm TAKE 200 MILLIGRAMS ORAL DAILY Lisinopril 20MG Oral Tablet 12/14/2018 07/01/2021 ORAL DAILY 20 MILLIGRAMS 97741 7 RxNorm TAKE 20 MILLIGRAMS ORAL DAILY [...] 07/26/2021 ORAL TWICE A DAY 1000 MILLIGRAMS 24155 94 RxNorm TAKE 1000 MILLIGRAMS ORAL TWICE A DAY Ondansetron 4MG Oral Tablet, Disintegrati ng 07/05/2021 10/26/2021 ORAL NEEDED EVERY 6 HOURS 1 TABLET 71482 4 RxNorm TAKE 1 TABLET ORAL NEEDED EVERY 6 HOURS FOR Nausea/Vomi ting Phenergan 25MG Rectal Suppository 07/26/2021 10/26/2021 RECTAL DAILY 1 SUPPOSITORY 25843 7 RxNorm INSERT 1 SUPPOSITORY RECTAL DAILY HYDROcodone bitartrate-a cetaminophen 5MG-325MG Oral Tablet 09/19/2021 10/26/2021 ORAL EVERY 6 HOURS 1 TABLET 17263 2 RxNorm TAKE 1 TABLET ORAL EVERY 6 HOURS Zithromax 250MG Oral Tablet 04/17/2022 01/25/2023 ORAL DAILY 1 TABLET 28769 6 RxNorm TAKE 1 TABLET ORAL DAILY predniSONE 20MG Oral Tablet 04/17/2022 01/07/2023 ORAL DAILY 2 TABLET 00364 5 RxNorm TAKE 2 TABLET ORAL DAILY Percocet 5MG-325MG Oral Tablet 01/07/2023 06/23/2023 ORAL NEEDED EVERY 4 HOURS 1 TABLET 18074 40 RxNorm TAKE 1 TABLET ORAL NEEDED EVERY 4 HOURS predniSONE 20MG Oral Tablet 01/07/2023 01/07/2023 ORAL DAILY 2 TABLET 40366 5 RxNorm TAKE 2 TABLET ORAL DAILY predniSONE 20MG Oral Tablet 01/07/2023 06/23/2023 ORAL DAILY 2 TABLET 63286 5 RxNorm TAKE 2 TABLET ORAL DAILY LaMICtal 150MG Oral Tablet 06/23/2023 11/11/2023 ORAL DAILY 1 TABLET 1 RxNorm TAKE 1 TABLET ORAL DAILY HumaLOG 100U/1ML Injection Solution 06/23/2023 Unknown INJECTION DAILY 1 unit(s) 05158 8 RxNorm 1 EACH INJECTION DAILY Ondansetron 4MG Oral Tablet 06/23/2023 01/31/2024 ORAL NEEDED EVERY 6 HOURS 4 MILLIGRAMS 2 RxNorm TAKE 4 MILLIGRAMS ORAL NEEDED EVERY 6 HOURS SEROquel 100MG Oral Tablet 06/23/2023 11/11/2023 ORAL BEDTIME 150 MILLIGRAMS 28763 9 RxNorm TAKE 150 MILLIGRAMS ORAL BEDTIME Spironolacto ne 100MG Oral Tablet 06/23/2023 Unknown ORAL DAILY 100 MILLIGRAMS 2 RxNorm TAKE 100 MILLIGRAMS ORAL DAILY Vraylar 6MG Oral Capsule 06/23/2023 11/11/2023 ORAL DAILY 6 MILLIGRAMS 59987 78 RxNorm TAKE 6 MILLIGRAMS ORAL DAILY [...] Status Code Code System SLURRED SPEECH active 739454714 SNOME D-CT DIABETES 2 active 17058822 SNOMED-CT BIPOLAR DISORDER active 96604469 SNO MED-CT PTSD 09/19/2021 resolved 10048399 SNOMED-CT FIBROMYALGIA 09/19/2021 resolved 886141637 SNOMED -CT DIABETES 2 07/05/2021 resolved 53385126 SNOMED-C T FALL FROM STAIRS 06/23/2023 resolved 363270074 SN OMED-CT CLOSED FRACTURE OF RIGHT HUMERUS 06/23/2023 resolved 08775469843467586 SNOMED-CT HTN 09/19/2021 resolved 17863109 SNOMED-CT BIPOLAR DISORDER 09/19/2021 resolved 76303271 SN OMED-CT Allergies and Adverse Reactions Allergy Substance Reaction Severity Start Date Concern Status Co de Code System LISINOPRIL Active 25071 RxNorm AMBIEN Altered Mental Status (SNOMED-CT: 212635803) Active 936133 RxNorm Plan of Treatment Lab Draw 07/30/2020 Lab Draw 05/28/2020 US ABDOMEN LIMITED 1 ORGAN 05/06/2023 US RIGHT UPPER QUAD 07/05/2021 Encounters Encounter Diagnosis Start Date Code Code Sys tem Sprain of unspecified ligame nt of right ankle, initial encounter 07/01/2021 SNOMED-CT Personal Care Team Section Performer Name Performer Role Active Date Inactive Da te
--- OUTSIDE RECORDS SUMMARY | 2024-02-17 18:29 | XMS_ITS ---
Author Organization Unknown Address [address] [place] [address] [phone] Phone Care Team Providers Care Program Aide Name Role Phone TALA RADHIKA Davenport Attending [...] D , August 17, 2021 2:57:48 PM [id number] [phone] Electronically Reviewed and Signed By: KELLI DEL TORO RADIOLOGIST 08/17/21 16:03 Copy for: JES LUNDILY via fax Copy for: [facility] Social History Type Status Start Date End Date Code Code Syst em Smoking History Current every day smoker 086489457 SNOMED CT Sex Female Medications Medication Start Date End Date Route Frequency Dose Code Code System Medication Instructions Home Meds Cyclobenzaprine 10MG Oral Tablet 12/14/2018 10/26/2021 ORAL THREE TIMES A DAY 10 MILLIGRAMS 163863 RxNorm TAKE 10 MILLIGRAMS ORAL THREE TIMES A DAY Ondansetron 4MG Oral Tablet, Disintegrating 07/05/2021 10/26/2021 ORAL NEEDED EVERY 6 HOURS 1 TABLET 993442 RxNorm TAKE 1 TABLET ORAL NEEDED EVERY 6 HOURS FOR Nausea/Vomi ting Phenergan 25MG Rectal Suppository 07/26/2021 10/26/2021 RECTA L DAILY 1 SUPPOSITORY 599246 RxNorm INSERT 1 SUPPOSITORY RECTAL DAILY HYDROcodone bitartrate-aceta minophen 5MG-325MG Oral Tablet 09/19/2021 10/26/2021 ORAL EVERY 6 HOURS 1 TABLET 736275 RxNorm TAKE 1 TABLET ORAL EVERY 6 HOURS Zithromax 250MG Oral Tablet 04/17/2022 01/25/2023 ORAL DAILY 1 TABLET 884592 RxNorm TAKE 1 TABLET ORAL DAILY predniSONE 20MG Oral Tablet 04/17/2022 01/07/2023 ORAL DAILY 2 TABLET 736536 RxNorm TAKE 2 TABLET ORAL DAILY predniSONE 20MG Oral Tablet 01/07/2023 06/23/2023 ORAL DAILY 2 TABLET 045647 RxNorm TAKE 2 TABLET ORAL DAILY Percocet 5MG-325MG Oral Tablet 01/07/2023 06/23/2023 ORAL NEEDED EVERY 4 HOURS 1 TABLET 3133967 RxNorm TAKE 1 TABLET ORAL NEEDED EVERY 4 HOURS predniSONE 20MG Oral Tablet 01/07/2023 01/07/2023 ORAL DAILY 2 TABLET 394522 RxNorm TAKE 2 TABLET ORAL DAILY SEROquel 100MG Oral Tablet 06/23/2023 11/11/2023 ORAL BEDTIM E 150 MILLIGRAMS 659642 RxNorm TAKE 150 MILLIGRAMS ORAL BEDTIME LaMICtal 150MG Oral Tablet 06/23/2023 11/11/2023 ORAL DAILY 1 TABLET RxNorm TAKE 1 TABLET ORAL DAILY Ondansetron 4MG Oral Tablet 06/23/2023 01/31/2024 ORAL NEEDED EVERY 6 HOURS 4 MILLIGRAMS 554697 RxNorm TAKE 4 MILLIGRAMS ORAL NEEDED EVERY 6 HOURS HumaLOG 100U/1ML Injection Solution 06/23/2023 Unknown INJEC TION DAILY 1 unit(s) 281964 RxNorm 1 EACH INJECTION DAILY Spironolactone 100MG Oral Tablet 06/23/2023 Unknown ORAL DAILY 100 MILLIGRAMS 091006 RxNorm TAKE 100 MILLIGRAMS ORAL DAILY Vraylar 6MG Oral Capsule 06/23/2023 11/11/2023 ORAL DAILY 6 MILLIGRAMS 2423260 RxNorm TAKE 6 MILLIGRAMS ORAL DAILY Mounjaro [...] Status Code Code System SLURRED SPEECH active 511858920 SNOME D-CT DIABETES 2 active 87491674 SNOMED-CT BIPOLAR DISORDER active 37811076 SNO MED-CT PTSD 09/19/2021 resolved 27213883 SNOMED-CT FIBROMYALGIA 09/19/2021 resolved 462616307 SNOMED -CT DIABETES 2 07/05/2021 resolved 96937973 SNOMED-C T FALL FROM STAIRS 06/23/2023 resolved 075099510 SN OMED-CT CLOSED FRACTURE OF RIGHT HUMERUS 06/23/2023 resolved 56795449319361885 SNOMED-CT HTN 09/19/2021 resolved 68065920 SNOMED-CT BIPOLAR DISORDER 09/19/2021 resolved 91857318 SN OMED-CT Allergies and Adverse Reactions Allergy Substance Reaction Severity Start Date Concern Status Co de Code System LISINOPRIL Active 93488 RxNorm AMBIEN Altered Mental Status (SNOMED-CT: 487753517) Active 482422 RxNorm Plan of Treatment Lab Draw 07/30/2020 Lab Draw 05/28/2020 US ABDOMEN LIMITED 1 ORGAN 05/06/2023 US RIGHT UPPER QUAD 07/05/2021 Encounters Encounter Diagnosis Start Date Code Code Sys tem 08/17/2021 [id number] SNOMED-CT Personal Care Team Section Performer Name Performer Role Active Date Inactive Da te
--- OUTSIDE RECORDS SUMMARY | 2024-02-17 18:29 | XMS_ITS ---
Author Organization Unknown Address [address] [place] [address] [phone] Phone Care Team Providers Care Smash Fixer Name Role Phone TALA Davenport Attending Unavailable JES DELAROSA Primary Unavailable Social History Type Status Start Date End Date Code Code Syst em Smoking History Current every day smoker 841312528 SNOMED CT Sex Female Medications Medication Start Date End Date Route Frequency Dose Code Code System Medication Instructions Home Meds Cyclobenzaprine 10MG Oral Tablet 12/14/2018 10/26/2021 ORAL THREE TIMES A DAY 10 MILLIGRAMS 751568 RxNorm TAKE 10 MILLIGRAMS ORAL THREE TIMES A DAY Ondansetron 4MG Oral Tablet, Disintegrating 07/05/2021 10/26/2021 ORAL NEEDED EVERY 6 HOURS 1 TABLET 526480 RxNorm TAKE 1 TABLET ORAL NEEDED EVERY 6 HOURS FOR Nausea/Vomi ting Phenergan 25MG Rectal Suppository 07/26/2021 10/26/2021 RECTA L DAILY 1 SUPPOSITORY 358362 RxNorm INSERT 1 SUPPOSITORY RECTAL DAILY HYDROcodone bitartrate-aceta minophen 5MG-325MG Oral Tablet 09/19/2021 10/26/2021 ORAL EVERY 6 HOURS 1 TABLET 024886 RxNorm TAKE 1 TABLET ORAL EVERY 6 HOURS Zithromax 250MG Oral Tablet 04/17/2022 01/25/2023 ORAL DAILY 1 TABLET 214022 RxNorm TAKE 1 TABLET ORAL DAILY predniSONE 20MG Oral Tablet 04/17/2022 01/07/2023 ORAL DAILY 2 TABLET 142621 RxNorm TAKE 2 TABLET ORAL DAILY predniSONE 20MG Oral Tablet 01/07/2023 06/23/2023 ORAL DAILY 2 TABLET 972060 RxNorm TAKE 2 TABLET ORAL DAILY Percocet 5MG-325MG Oral Tablet 01/07/2023 06/23/2023 ORAL NEEDED EVERY 4 HOURS 1 TABLET 3700990 RxNorm TAKE 1 TABLET ORAL NEEDED EVERY 4 HOURS predniSONE 20MG Oral Tablet 01/07/2023 01/07/2023 ORAL DAILY 2 TABLET 240923 RxNorm TAKE 2 TABLET ORAL DAILY SEROquel 100MG Oral Tablet 06/23/2023 11/11/2023 ORAL BEDTIM E 150 MILLIGRAMS 664366 RxNorm TAKE 150 MILLIGRAMS ORAL BEDTIME LaMICtal 150MG Oral Tablet 06/23/2023 11/11/2023 ORAL DAILY 1 TABLET RxNorm TAKE 1 TABLET ORAL DAILY Ondansetron 4MG Oral Tablet 06/23/2023 01/31/2024 ORAL NEEDED EVERY 6 HOURS 4 MILLIGRAMS 173469 RxNorm TAKE 4 MILLIGRAMS ORAL NEEDED EVERY 6 HOURS HumaLOG 100U/1ML Injection Solution 06/23/2023 Unknown INJEC TION DAILY 1 unit(s) 436079 RxNorm 1 EACH INJECTION DAILY Spironolactone 100MG Oral Tablet 06/23/2023 Unknown ORAL DAILY 100 MILLIGRAMS 19810531 RxNorm TAKE 100 MILLIGRAMS ORAL DAILY Vraylar 6MG Oral Capsule 06/23/2023 11/11/2023 ORAL DAILY 6 MILLIGRAMS 9861594 RxNorm TAKE 6 MILLIGRAMS ORAL DAILY Mounjaro [...] Status Code Code System SLURRED SPEECH active 465385554 SNOME D-CT DIABETES 2 active 68581783 SNOMED-CT BIPOLAR DISORDER active 09021392 SNO MED-CT PTSD 09/19/2021 resolved 02756573 SNOMED-CT FIBROMYALGIA 09/19/2021 resolved 392600057 SNOMED -CT DIABETES 2 07/05/2021 resolved 40790470 SNOMED-C T FALL FROM STAIRS 06/23/2023 resolved 832727051 SN OMED-CT CLOSED FRACTURE OF RIGHT HUMERUS 06/23/2023 resolved 74464981621963122 SNOMED-CT HTN 09/19/2021 resolved 64761575 SNOMED-CT BIPOLAR DISORDER 09/19/2021 resolved 90232651 SN OMED-CT Allergies and Adverse Reactions Allergy Substance Reaction Severity Start Date Concern Status Co de Code System LISINOPRIL Active 42535 RxNorm AMBIEN Altered Mental Status (SNOMED-CT: 497593361) Active 917658 RxNorm Plan of Treatment Lab Draw 07/30/2020 Lab Draw 05/28/2020 US ABDOMEN LIMITED 1 ORGAN 05/06/2023 US RIGHT UPPER QUAD 07/05/2021 Encounters Encounter Diagnosis Start Date Code Code Sys tem Canceled operative procedure 09/14/2021 04299038 SNOMED-CT Personal Care Team Section Performer Name Performer Role Active Date Inactive Da te
--- OUTSIDE RECORDS SUMMARY | 2024-02-17 18:29 | XMS_ITS ---
Author Organization Unknown Address [address] [place] [address] [phone] Phone Care Team Providers Care Paste Plant Supervisor Name Role Phone SILVIA CLEMENT Registered Nurse Unavailable JACOB MALONEY Registered Nurse Unavailable MADY Martinez Attending Unavailable SARA QUESADA Unavailable JES DELAROSA Primary Unavailable UNLISTED PROVIDER - REQUESTED Xhandoff Un available Results GLUCOSE FINGER/HEEL CAPILLAR Y - Collect Date/Time: 07/26/2021 22:11 [facility] ID: [id number] [address] [place] [address], [phone] LOINC: 96732-7 Test Value Unit Reference Range Code Code System Flag GLUCOSE CAP 233 mg/dL L=70 H=116 H ORDER VENOUS BLOOD GAS* - Co llect Date/Time: 07/26/2021 21:18 [facility] ID: [id number] [address] [place] [address], [id number] LOINC: Test Value Unit Reference Range Code [...] QUALI TATIVE - Collect Date/Time: 07/26/2021 21:00 [facility] ID: [id number] [address] [place] [address], [address] LOINC: 2106-3 Test Value Unit Reference Range Code Code System Flag TEST NEGATIVE 2106-3 LOINC URINALYSIS WITH REFLEX CULT IF POSITIVE* - Collect Date/Time: 07/26/2021 21:00 [facility] ID: [id number] [address] [place] [address], [address] LOINC: 65336-9 Test Value Unit Reference Range Code Code System Flag COLLECTION MODE: CLEAN CATCH Color YELLOW yellow 5778-6 LOINC Appearance CLEAR clear 5767-9 LOINC Glucose urine 500 negative mg/dl 54959-0 LOINC A Bilirubin SMALL negative 5770-3 LOINC A Ketones >=80 negative mg/dl 2514-8 LOINC A Spec gravity >=1.030 1.003 - 1.030 5811-5 LOINC pH urine 5.5 5.0 - 7.0 2756-5 LOINC Protein NEGATIVE negative mg/dl 34481-7 LOINC Urobilinogen 0.2 <or= 1 EU/dl 56757-8 LOINC Nitrite. NEGATIVE negative 5802-4 LOINC Blood NEGATIVE negative 5794-3 LOINC Leukocytes. NEGATIVE negative MICROSCOPIC NOT INDICAT GLUCOSE FINGER/HEEL CAPILLAR Y - Collect Date/Time: 07/26/2021 20:24 [facility] ID: [id number] [address] [place] [address], [phone] LOINC: 72921-6 Test Value Unit Reference Range Code Code System Flag GLUCOSE CAP 252 mg/dL L=70 H=116 H LIPASE* - Collect Date/Time: 07/26/2021 20:20 [facility] ID: [id number] [address] [place] [address], [phone] LOINC: 3040-3 Test Value Unit Reference Range Code Code System Flag LIPASE 129 U/L L=73 H=393 KETONES QUAL - Collect Date/ Time: 07/26/2021 20:20 [facility] ID: [id number] [address] [place], [place], [address] LOINC: 5567-3 Test Value Unit Reference Range Code Code System Flag ACETONE NEGATIVE 5567-3 LOINC COMPREHENSIVE METABOLIC PANE L (CMP) - Collect Date/Time: 07/26/2021 20:20 [facility] ID: [id number] [address] [place] [address], [address] LOINC: 03441-7 Test Value Unit Reference Range Code Code [...] H=34 2028-9 LOINC ANION GAP 11.6 mmol/L 37116-1 LOINC CALCIUM SERUM 8.4 mg/dL L=8.2 H=10.2 63876-6 LOINC BILIRUBIN TOTAL 1.0 mg/dL L=0.0 H=1.3 1975-2 LOINC ALK. PHOS. 88 U/L L=46 H=116 6768-6 LOINC SGOT (AST) 35 U/L L=15 H=37 1920-8 LOINC SGPT (ALT) 43 U/L L=12 H=78 1742-6 LOINC TOTAL PROTEIN 7.1 gm/dL L=6.0 H=8.0 2885-2 LOINC ALBUMIN 3.8 gm/dL L=3.4 H=5.0 1751-7 LOINC AGE 46 years eGFR (non-Afr.Amer.) 87 mL/min 48547-9 LOINC eGFR (Afr-[place]) 105 mL/min 04932-3 LOINC CBC W/ DIFFERENTIAL* - Colle ct Date/Time: 07/26/2021 20:20 [facility] ID: [id number] [address] [place], [place], [address] LOINC: 24115-1 Test Value Unit Reference Range Code Code System Flag WBC 10.95 th/cmm L=5.00 H=10.00 6690-2 LOINC H NEUT % 56.8 % L=40.0 H=80.0 LYMPH % 35.3 % L=10.0 H=50.0 MONO % 6.5 % L=2.0 H=12.0 41012-3 LOINC EOS % 0.7 % L=0.0 H=8.0 BASO % 0.5 % L=0.0 H=3.0 IG % 0.2 % L=0.0 H=1.1 2514-8 LOINC NRBC % 0.0 % L=0.0 H=0.0 95452-4 LOINC NEUT abs count 6.2 th/cmm L=1.6 H=8.4 751-8 LOINC LYMPH abs count 3.9 th/cmm L=1.5 H=4.0 731-0 LOINC MONO abs count 0.7 th/cmm L=0.2 H=1.0 742-7 LOINC EOS abs count 0.1 th/cmm L=0.0 H=0.5 711-2 LOINC BASO abs count 0.1 th/cmm L=0.0 H=0.2 704-7 LOINC IG abs count 0.0 th/cmm L=0.0 H=0.1 37035-7 LOINC NRBC abs count 0.0 mil/cmm L=0.0 H=0.0 57195-9 LOINC RBC 4.69 mil/cmm L=3.90 H=5.40 789-8 [...] CAPILLAR Y - Collect Date/Time: 07/26/2021 12:33 [facility] ID: [id number] [address] [place], [place], [phone] LOINC: 03040-7 Test Value Unit Reference Range Code Code System Flag GLUCOSE CAP 215 mg/dL L=70 H=116 H GLUCOSE FINGER/HEEL CAPILLAR Y - Collect Date/Time: 07/26/2021 11:18 [facility] ID: [id number] [address] [place] [address], [id number] LOINC: 90047-9 Test Value Unit Reference Range Code Code System Flag GLUCOSE CAP 329 mg/dL L=70 H=116 H TEST (URINE) QUALI TATIVE - Collect Date/Time: 07/26/2021 09:59 [facility] ID: [id number] [address] [place] [address], [address] LOINC: 6-3 Test Value Unit Reference Range Code Code System Flag TEST NEGATIVE 2105-3 LOINC URINALYSIS WITH REFLEX CULT IF POSITIVE* - Collect Date/Time: 07/26/2021 09:59 [facility] ID: [id number] [address] [place] [address], [address] LOINC: 43333-2 Test Value Unit Reference Range Code Code System Flag COLLECTION MODE: CLEAN CATCH Color YELLOW yellow 5778-6 LOINC Appearance CLEAR clear 5767-9 LOINC Glucose urine >=1000 negative mg/dl 39126-9 LOINC A Bilirubin NEGATIVE negative 5770-3 LOINC Ketones 15 negative mg/dl 2514-8 LOINC A Spec gravity <=1.005 1.003 - 1.030 5811-5 LOINC pH urine 6.0 5.0 - 7.0 2756-5 LOINC Protein NEGATIVE negative mg/dl 09070-8 LOINC Urobilinogen 0.2 <or= 1 EU/dl 36369-9 LOINC Nitrite. NEGATIVE negative 5802-4 LOINC Blood NEGATIVE negative 5794-3 LOINC Leukocytes. NEGATIVE negative MICROSCOPIC NOT INDICAT ORDER VENOUS BLOOD GAS* - Co llect Date/Time: 07/26/2021 09:59 [facility] ID: [id number] [address] [place] [address], [phone] LOINC: Test Value Unit Reference Range Code [...] QUAL - Collect Date/ Time: 07/26/2021 09:30 [facility] ID: [id number] [address] [place] [address], [address] LOINC: 5567-3 Test Value Unit Reference Range Code Code System Flag ACETONE SMALL 5567-3 LOINC LIPASE* - Collect Date/Time: 07/26/2021 09:30 [facility] ID: [id number] [address] [place], [place], [id number] LOINC: 3040-3 Test Value Unit Reference Range Code Code System Flag LIPASE 120 U/L L=73 H=393 CBC W/ DIFFERENTIAL* - Colle ct Date/Time: 07/26/2021 09:30 [facility] ID: [id number] [address] [place], [place], [address] LOINC: 04014-8 Test Value Unit Reference Range Code Code System Flag WBC 8.72 th/cmm L=5.00 H=10.00 6690-2 LOINC NEUT % 64.3 % L=40.0 H=80.0 LYMPH % 27.5 % L=10.0 H=50.0 MONO % 6.7 % L=2.0 H=12.0 47907-3 LOINC EOS % 0.7 % L=0.0 H=8.0 BASO % 0.6 % L=0.0 H=3.0 IG % 0.2 % L=0.0 H=1.1 2514-8 LOINC NRBC % 0.0 % L=0.0 H=0.0 35957-3 LOINC NEUT abs count 5.6 th/cmm L=1.6 H=8.4 751-8 LOINC LYMPH abs count 2.4 th/cmm L=1.5 H=4.0 731-0 LOINC MONO abs count 0.6 th/cmm L=0.2 H=1.0 742-7 LOINC EOS abs count 0.1 th/cmm L=0.0 H=0.5 711-2 LOINC BASO abs count 0.1 th/cmm L=0.0 H=0.2 704-7 LOINC IG abs count 0.0 th/cmm L=0.0 H=0.1 68206-4 LOINC NRBC abs count 0.0 mil/cmm L=0.0 H=0.0 97668-2 LOINC RBC 4.84 mil/cmm L=3.90 H=5.40 789-8 [...] PANEL (BMP) - Collect Date/Time: 07/26/2021 09:30 [facility] ID: [id number] [address] [place], [place], [address] LOINC: 72096-0 Test Value Unit Reference Range Code Code [...] H=34 2028-9 LOINC ANION GAP 13.8 mmol/L 98825-0 LOINC CALCIUM SERUM 9.2 mg/dL L=8.2 H=10.2 70521-3 LOINC AGE 46 years eGFR (non-Afr.Amer.) 59 mL/min 63205-4 [facility] eGFR (Afr-[place]) 71 mL/min 92040-4 [facility] GLUCOSE FINGER/HEEL CAPILLAR Y - Collect Date/Time: 07/26/2021 09:10 [facility] ID: [id number] [address] [place], [place], [id number] LOINC: 42954-0 Test Value Unit Reference Range Code Code System Flag GLUCOSE CAP 424 mg/dL L=70 H=116 HH Social History Type Status Start Date End Date Code Code Syst em Smoking History Current every day smoker 394578977 SNOMED CT Sex Female Vital Signs Vital Sign Value Unit [place] Value [place] Unit Date/Time Recent/Initial? Code Code System Body Mass Index 38.86 kg/m2 07/26/2021 19:47 Most Recent 97244 -5 LOINC Body Mass Index 38.86 kg/m2 07/26/2021 08:54 Initial 09193 -5 LOINC Systolic Blood Pressure 180 mm[Hg] [...] Saturation 97 % 2021 22:19 Most Recent 16463 -5 LOINC O2 Saturation 96 % 2021 08:54 Initial 31242 -5 LOINC Pulse 102.0 /min 07/26/2021 22:19 Most Recent 8867- 4 LOINC Pulse 85.0 /min 07/26/2021 08:54 Initial 8867- 4 LOINC Respiration 19 /min 07/27/19 22:19 Most Recent 9279- 1 LOINC Respiration 16 /min 07/27/19 08:54 Initial 9279- 1 LOINC Temperature 35.8 Jazmine 96.4 F 07/27/19 19:47 Most Recent 8310- 5 LOINC Temperature 36.1 Jazmine 97.0 F 07/27/19 08:54 Initial 8310- 5 LOINC Weight 90.26 kg 199.00 lbs 07/26/2021 19:47 Most Recent 31722 -7 [facility] Weight 90.26 kg 199.00 lbs 07/26/2021 08:54 Initial 31205 -7 [facility] Medications Medication Start Date End Date Route Frequency Dose Code Code System Medication Instructions Home Meds Cyclobenzaprine 10MG Oral Tablet 12/14/2018 10/26/2021 ORAL THREE TIMES A DAY 10 MILLIGRAMS 087987 RxNorm TAKE 10 MILLIGRAMS ORAL THREE TIMES A DAY Ondansetron 4MG Oral Tablet, Disintegrating 07/05/2021 10/26/2021 ORAL NEEDED EVERY 6 HOURS 1 TABLET 160264 RxNorm TAKE 1 TABLET ORAL NEEDED EVERY 6 HOURS FOR Nausea/Vomi ting Phenergan 25MG Rectal Suppository 07/26/2021 10/26/2021 RECTA L DAILY 1 SUPPOSITORY 221491 RxNorm INSERT 1 SUPPOSITORY RECTAL DAILY HYDROcodone bitartrate-aceta minophen 5MG-325MG Oral Tablet 09/19/2021 10/26/2021 ORAL EVERY 6 HOURS 1 TABLET 698051 RxNorm TAKE 1 TABLET ORAL EVERY 6 HOURS Zithromax 250MG Oral Tablet 04/17/2022 01/25/2023 ORAL DAILY 1 TABLET 068746 RxNorm TAKE 1 TABLET ORAL DAILY predniSONE 20MG Oral Tablet 04/17/2022 01/07/2023 ORAL DAILY 2 TABLET 926066 RxNorm TAKE 2 TABLET ORAL DAILY predniSONE 20MG Oral Tablet 01/07/2023 06/23/2023 ORAL DAILY 2 TABLET 764077 RxNorm TAKE 2 TABLET ORAL DAILY Percocet 5MG-325MG Oral Tablet 01/07/2023 06/23/2023 ORAL NEEDED EVERY 4 HOURS 1 TABLET 4284036 RxNorm TAKE 1 TABLET ORAL NEEDED EVERY 4 HOURS predniSONE 20MG Oral Tablet 01/07/2023 01/07/2023 ORAL DAILY 2 TABLET 084035 RxNorm TAKE 2 TABLET ORAL DAILY SEROquel 100MG Oral Tablet 06/23/2023 11/11/2023 ORAL BEDTIM E 150 MILLIGRAMS 719633 RxNorm TAKE 150 MILLIGRAMS ORAL BEDTIME LaMICtal 150MG Oral Tablet 06/23/2023 11/11/2023 ORAL DAILY 1 TABLET RxNorm TAKE 1 TABLET ORAL DAILY Ondansetron 4MG Oral Tablet 06/23/2023 01/31/2024 ORAL NEEDED EVERY 6 HOURS 4 MILLIGRAMS 19790829 RxNorm TAKE 4 MILLIGRAMS ORAL NEEDED EVERY 6 HOURS HumaLOG 100U/1ML Injection Solution 06/23/2023 Unknown INJEC TION DAILY 1 unit(s) 254948 RxNorm 1 EACH INJECTION DAILY Spironolactone 100MG Oral Tablet 06/23/2023 Unknown ORAL DAILY 100 MILLIGRAMS 19810531 RxNorm TAKE 100 MILLIGRAMS ORAL DAILY Vraylar 6MG Oral Capsule 06/23/2023 11/11/2023 ORAL DAILY 6 MILLIGRAMS 1672710 RxNorm TAKE 6 MILLIGRAMS ORAL DAILY Mounjaro [...] Status Code Code System SLURRED SPEECH active 916265772 SNOME D-CT DIABETES 2 active 18360510 SNOMED-CT BIPOLAR DISORDER active 05950486 SNO MED-CT PTSD 09/19/2021 resolved 55000749 SNOMED-CT FIBROMYALGIA 09/19/2021 resolved 964579709 SNOMED -CT DIABETES 2 07/05/2021 resolved 50685019 SNOMED-C T FALL FROM STAIRS 06/23/2023 resolved 239291439 SN OMED-CT CLOSED FRACTURE OF RIGHT HUMERUS 06/23/2023 resolved 99150081406487908 SNOMED-CT HTN 09/19/2021 resolved 38585019 SNOMED-CT BIPOLAR DISORDER 09/19/2021 resolved 31790296 SN OMED-CT Allergies and Adverse Reactions Allergy Substance Reaction Severity Start Date Concern Status Co de Code System LISINOPRIL Active 72889 RxNorm AMBIEN Altered Mental Status (SNOMED-CT: 806284285) Active 484354 RxNorm Plan of Treatment Lab Draw 07/30/2020 Lab Draw 05/28/2020 US ABDOMEN LIMITED 1 ORGAN 05/06/2023 US RIGHT UPPER QUAD 07/05/2021 Encounters Encounter Diagnosis Start Date Code Code Sys tem Nausea with vomiting, unspecified 07/26/2021 SNOMED-CT Personal Care Team Section Performer Name Performer Role Active Date Inactive Da te
--- OUTSIDE RECORDS SUMMARY | 2024-02-17 18:29 | XMS_ITS ---
Author Organization Unknown Address [address] [place] [address] [phone] Phone Care Team Providers Care Supersonic Engineer Name Role Phone MILLY DAVIS Registered Nurse Unavailable ANN Kay Attending Unavailable ADELE Kay ER Unavailable JES DELAROSA Primary Unavailable UNLISTED PROVIDER - REQUESTED Xhandoff Un available Results URINALYSIS WITH REFLEX CULT IF POSITIVE* - Collect Date/Time: 07/05/2021 17:49 [facility] ID: [id number] [address] [place] [address], [address] LOINC: 63728-7 Test Value Unit Reference Range Code Code System Flag COLLECTION MODE: CLEAN CATCH Color YELLOW yellow 5778-6 LOINC Appearance CLEAR clear 5767-9 LOINC Glucose urine >=1000 negative mg/dl 70993-6 LOINC A Bilirubin SMALL negative 5770-3 LOINC A Ketones 40 negative mg/dl 2514-8 LOINC A Spec gravity 1.020 1.003 - 1.030 5811-5 LOINC pH urine 6.5 5.0 - 7.0 2756-5 LOINC Protein NEGATIVE negative mg/dl 62032-8 LOINC Urobilinogen 0.2 <or= 1 EU/dl 44353-7 LOINC Nitrite. NEGATIVE negative 5802-4 LOINC Blood NEGATIVE negative 5794-3 LOINC Leukocytes. NEGATIVE negative MICROSCOPIC NOT INDICAT ORDER VENOUS BLOOD GAS* - Co llect Date/Time: 07/05/2021 17:20 [facility] ID: [id number] [address] [place] [address], [id number] LOINC: Test Value Unit Reference Range Code [...] QUAL - Collect Date/ Time: 07/05/2021 17:00 [facility] ID: [id number] [address] [place] [address], [address] LOINC: 5567-3 Test Value Unit Reference Range Code Code System Flag ACETONE NEGATIVE 5567-3 LOINC COMPREHENSIVE METABOLIC PANE L (CMP) - Collect Date/Time: 07/05/2021 17:00 [facility] ID: [id number] [address] [place] [address], [address] LOINC: 35886-5 Test Value Unit Reference Range Code Code [...] H=34 2028-9 LOINC ANION GAP 10.8 mmol/L 43486-8 LOINC CALCIUM SERUM 9.3 mg/dL L=8.2 H=10.2 47082-4 LOINC BILIRUBIN TOTAL 0.9 mg/dL L=0.0 H=1.3 1975-2 LOINC ALK. PHOS. 94 U/L L=46 H=116 6768-6 LOINC SGOT (AST) 43 U/L L=15 H=37 1920-8 LOINC H SGPT (ALT) 58 U/L L=12 H=78 1742-6 LOINC TOTAL PROTEIN 7.9 gm/dL L=6.0 H=8.0 2885-2 LOINC ALBUMIN 4.1 gm/dL L=3.4 H=5.0 1751-7 LOINC AGE 45 years eGFR (non-Afr.Amer.) 81 mL/min 58786-8 LOINC eGFR (Afr-Peruvian) 98 mL/min 13839-4 LOINC CBC W/ DIFFERENTIAL* - Colle ct Date/Time: 07/05/2021 17:00 [facility] ID: [id number] [address] [place], [place], [address] LOINC: 93754-6 Test Value Unit Reference Range Code Code System Flag WBC 10.91 th/cmm L=5.00 H=10.00 6690-2 LOINC H NEUT % 56.6 % L=40.0 H=80.0 LYMPH % 35.0 % L=10.0 H=50.0 MONO % 7.0 % L=2.0 H=12.0 64953-2 LOINC EOS % 0.5 % L=0.0 H=8.0 BASO % 0.4 % L=0.0 H=3.0 IG % 0.5 % L=0.0 H=1.1 2514-8 LOINC NRBC % 0.0 % L=0.0 H=0.0 38003-6 LOINC NEUT abs count 6.2 th/cmm L=1.6 H=8.4 751-8 LOINC LYMPH abs count 3.8 th/cmm L=1.5 H=4.0 731-0 LOINC MONO abs count 0.8 th/cmm L=0.2 H=1.0 742-7 LOINC EOS abs count 0.1 th/cmm L=0.0 H=0.5 711-2 LOINC BASO abs count 0.0 th/cmm L=0.0 H=0.2 704-7 LOINC IG abs count 0.1 th/cmm L=0.0 H=0.1 13214-9 LOINC NRBC abs count 0.0 mil/cmm L=0.0 H=0.0 52396-7 LOINC RBC 4.85 mil/cmm L=3.90 H=5.40 789-8 [...] CAPILLAR Y - Collect Date/Time: 07/05/2021 15:55 [facility] ID: [id number] [address] [place] [address], [id number] LOINC: 35112-2 Test Value Unit Reference Range Code Code System Flag GLUCOSE CAP 270 mg/dL L=70 H=116 H Social History Type Status Start Date End Date Code Code Syst em Smoking History Current every day smoker 343545897 SNOMED CT Sex Female Vital Signs Vital Sign Value Unit [place] Value [place] Unit Date/Time Recent/Initial? Code Code System Body Mass Index 39.45 kg/m2 07/05/2021 15:57 Initial 03938 -5 LOINC Systolic Blood Pressure 162 mm[Hg] 07/05/2021 18:51 Most Recent 8480- 6 LOINC Diastolic Blood Pressure 90 mm[Hg] 07/05/2021 18:51 Most Recent 8462- 4 LOINC Systolic Blood Pressure 145 mm[Hg] 07/05/2021 15:57 Initial 8480- 6 LOINC Diastolic Blood Pressure 87 mm[Hg] 07/05/2021 15:57 Initial 8462- 4 LOINC Body Surface Area 1.97 m2 07/05/2021 15:57 Initial 3140- 1 [facility] Height 152.400 0 cm 60.00 in 07/05/2021 15:57 Initial 8302- 2 INC O2 Saturation 97 % 2021 18:51 Most Recent 86247 -5 INC O2 Saturation 100 % 2021 15:57 Initial 88416 -5 INC Pulse 88.0 /min 07/05/2021 18:51 Most Recent 8867- 4 INC Pulse 98.0 /min 07/05/2021 15:57 Initial 8867- 4 LOINC Respiration 16 /min 07/06/19 18:51 Most Recent 9279- 1 LOINC Respiration 17 /min 07/06/19 15:57 Initial 9279- 1 INC Temperature 36.7 Jazmine 98.1 F 07/06/19 15:57 Initial 8310- 5 [facility] Weight 91.63 kg 202.00 lbs 07/05/2021 15:57 Initial 31166 -7 [facility] Medications Medication Start Date End Date Route Frequency Dose Code Code System Medication Instructions Home Meds metFORMIN HCl 1000MG Oral Tablet, Extended Release 12/14/2018 07/26/2021 ORAL TWICE A DAY 1000 MILLIGRAMS 9238238 RxNorm TAKE 1000 MILLIGRAMS ORAL TWICE A DAY Cyclobenzap rine 10MG Oral Tablet 12/14/2018 10/26/2021 ORAL THREE TIMES A DAY 10 MILLIGRAMS 115205 RxNorm TAKE 10 MILLIGRAMS ORAL THREE TIMES A DAY Ondansetron 4MG Oral Tablet, Disintegrat ing 07/05/2021 10/26/2021 ORAL NEEDED EVERY 6 HOURS 1 TABLET 641889 RxNorm TAKE 1 TABLET ORAL NEEDED EVERY 6 HOURS FOR Nausea/Vomit ing Phenergan 25MG Rectal Suppository 07/26/2021 10/26/2021 RECTAL DAILY 1 SUPPOSITORY 440315 RxNorm INSERT 1 SUPPOSITORY RECTAL DAILY HYDROcodone bitartrate- acetaminoph en 5MG-325MG Oral Tablet 09/19/2021 10/26/2021 ORAL EVERY 6 HOURS 1 TABLET 119295 RxNorm TAKE 1 TABLET ORAL EVERY 6 HOURS Zithromax 250MG Oral Tablet 04/17/2022 01/25/2023 ORAL DAILY 1 TABLET 239938 RxNorm TAKE 1 TABLET ORAL DAILY predniSONE 20MG Oral Tablet 04/17/2022 01/07/2023 ORAL DAILY 2 TABLET 089424 RxNorm TAKE 2 TABLET ORAL DAILY predniSONE 20MG Oral Tablet 01/07/2023 01/07/2023 ORAL DAILY 2 TABLET 522609 RxNorm TAKE 2 TABLET ORAL DAILY Percocet 5MG-325MG Oral Tablet 01/07/2023 06/23/2023 ORAL NEEDED EVERY 4 HOURS 1 TABLET 9344828 RxNorm TAKE 1 TABLET ORAL NEEDED EVERY 4 HOURS predniSONE 20MG Oral Tablet 01/07/2023 06/23/2023 ORAL DAILY 2 TABLET 656628 RxNorm TAKE 2 TABLET ORAL DAILY SEROquel 100MG Oral Tablet 06/23/2023 11/11/2023 ORAL BEDTIME 150 MILLIGRAMS 777489 RxNorm TAKE 150 MILLIGRAMS ORAL BEDTIME LaMICtal 150MG Oral Tablet 06/23/2023 11/11/2023 ORAL DAILY 1 TABLET RxNorm TAKE 1 TABLET ORAL DAILY Ondansetron 4MG Oral Tablet 06/23/2023 01/31/2024 ORAL NEEDED EVERY 6 HOURS 4 MILLIGRAMS 081479 RxNorm TAKE 4 MILLIGRAMS ORAL NEEDED EVERY 6 HOURS HumaLOG 100U/1ML Injection Solution 06/23/2023 Unknown INJECT ION DAILY 1 unit(s) 694976 RxNorm 1 EACH INJECTION DAILY Spironolact one 100MG Oral Tablet 06/23/2023 Unknown ORAL DAILY 100 MILLIGRAMS 971520 RxNorm TAKE 100 MILLIGRAMS ORAL DAILY Vraylar 6MG Oral Capsule 06/23/2023 11/11/2023 ORAL DAILY 6 MILLIGRAMS 5891686 RxNorm TAKE 6 MILLIGRAMS ORAL DAILY Mounjaro [...] Status Code Code System SLURRED SPEECH active 897972977 SNOME D-CT DIABETES 2 active 74933456 SNOMED-CT BIPOLAR DISORDER active 11629026 SNO MED-CT PTSD 09/19/2021 resolved 19325479 SNOMED-CT FIBROMYALGIA 09/19/2021 resolved 631000898 SNOMED -CT DIABETES 2 07/05/2021 resolved 56595601 SNOMED-C T FALL FROM STAIRS 06/23/2023 resolved 786605646 SN OMED-CT CLOSED FRACTURE OF RIGHT HUMERUS 06/23/2023 resolved 45336852705864205 SNOMED-CT HTN 09/19/2021 resolved 86183268 SNOMED-CT BIPOLAR DISORDER 09/19/2021 resolved 15937739 SN OMED-CT Allergies and Adverse Reactions Allergy Substance Reaction Severity Start Date Concern Status Co de Code System LISINOPRIL Active 10969 RxNorm AMBIEN Altered Mental Status (SNOMED-CT: 846059658) Active 106103 RxNorm Plan of Treatment Lab Draw 07/30/2020 Lab Draw 05/28/2020 US ABDOMEN LIMITED 1 ORGAN 05/06/2023 US RIGHT UPPER QUAD 07/05/2021 Encounters Encounter Diagnosis Start Date Code Code Sys tem Nausea with vomiting, unspecified 07/05/2021 SNOMED-CT Personal Care Team Section Performer Name Performer Role Active Date Inactive Da te
--- OUTSIDE RECORDS SUMMARY | 2024-02-17 18:30 | XMS_ITS ---
Author Organization Unknown Address [address] [place] [phone] Phone Care Team Providers Care Grease Machine Worker Name Role Phone JO WILD Attending Unavailable JES DELAROSA Primary Unavailable Social History Type Status Start Date End Date Code Code Syst em Smoking History Current every day smoker 098714528 SNOMED CT Sex Female Medications Medication Start Date End Date Route Frequency Dose Code Code System Medication Instructions Home Meds Cyclobenzaprine 10MG Oral Tablet 12/14/2018 10/26/2021 ORAL THREE TIMES A DAY 10 MILLIGRAMS 412351 RxNorm TAKE 10 MILLIGRAMS ORAL THREE TIMES A DAY Ondansetron 4MG Oral Tablet, Disintegrating 07/05/2021 10/26/2021 ORAL NEEDED EVERY 6 HOURS 1 TABLET 306614 RxNorm TAKE 1 TABLET ORAL NEEDED EVERY 6 HOURS FOR Nausea/Vomi ting Phenergan 25MG Rectal Suppository 07/26/2021 10/26/2021 RECTA L DAILY 1 SUPPOSITORY 326719 RxNorm INSERT 1 SUPPOSITORY RECTAL DAILY HYDROcodone bitartrate-aceta minophen 5MG-325MG Oral Tablet 09/19/2021 10/26/2021 ORAL EVERY 6 HOURS 1 TABLET 750183 RxNorm TAKE 1 TABLET ORAL EVERY 6 HOURS Zithromax 250MG Oral Tablet 04/17/2022 01/25/2023 ORAL DAILY 1 TABLET 230897 RxNorm TAKE 1 TABLET ORAL DAILY predniSONE 20MG Oral Tablet 04/17/2022 01/07/2023 ORAL DAILY 2 TABLET 789714 RxNorm TAKE 2 TABLET ORAL DAILY predniSONE 20MG Oral Tablet 01/07/2023 06/23/2023 ORAL DAILY 2 TABLET 644006 RxNorm TAKE 2 TABLET ORAL DAILY Percocet 5MG-325MG Oral Tablet 01/07/2023 06/23/2023 ORAL NEEDED EVERY 4 HOURS 1 TABLET 9574151 RxNorm TAKE 1 TABLET ORAL NEEDED EVERY 4 HOURS predniSONE 20MG Oral Tablet 01/07/2023 01/07/2023 ORAL DAILY 2 TABLET 985384 RxNorm TAKE 2 TABLET ORAL DAILY SEROquel 100MG Oral Tablet 06/23/2023 11/11/2023 ORAL BEDTIM E 150 MILLIGRAMS 627056 RxNorm TAKE 150 MILLIGRAMS ORAL BEDTIME LaMICtal 150MG Oral Tablet 06/23/2023 11/11/2023 ORAL DAILY 1 TABLET RxNorm TAKE 1 TABLET ORAL DAILY Ondansetron 4MG Oral Tablet 06/23/2023 01/31/2024 ORAL NEEDED EVERY 6 HOURS 4 MILLIGRAMS 160415 RxNorm TAKE 4 MILLIGRAMS ORAL NEEDED EVERY 6 HOURS HumaLOG 100U/1ML Injection Solution 06/23/2023 Unknown INJEC TION DAILY 1 unit(s) 863675 RxNorm 1 EACH INJECTION DAILY Spironolactone 100MG Oral Tablet 06/23/2023 Unknown ORAL DAILY 100 MILLIGRAMS 19810531 RxNorm TAKE 100 MILLIGRAMS ORAL DAILY Vraylar 6MG Oral Capsule 06/23/2023 11/11/2023 ORAL DAILY 6 MILLIGRAMS 8058988 RxNorm TAKE 6 MILLIGRAMS ORAL DAILY Mounjaro [...] Status Code Code System SLURRED SPEECH active 542148386 SNOME D-CT DIABETES 2 active 84582808 SNOMED-CT BIPOLAR DISORDER active 50433870 SNO MED-CT PTSD 09/19/2021 resolved 74637854 SNOMED-CT FIBROMYALGIA 09/19/2021 resolved 864870946 SNOMED -CT DIABETES 2 07/05/2021 resolved 20339053 SNOMED-C T FALL FROM STAIRS 06/23/2023 resolved 861483898 SN OMED-CT CLOSED FRACTURE OF RIGHT HUMERUS 06/23/2023 resolved 25609581723805429 SNOMED-CT HTN 09/19/2021 resolved 06714578 SNOMED-CT BIPOLAR DISORDER 09/19/2021 resolved 44524418 SN OMED-CT Allergies and Adverse Reactions Allergy Substance Reaction Severity Start Date Concern Status Co de Code System LISINOPRIL Active 44819 RxNorm AMBIEN Altered Mental Status (SNOMED-CT: 622383194) Active 635662 RxNorm Plan of Treatment Lab Draw 07/30/2020 Lab Draw 05/28/2020 US ABDOMEN LIMITED 1 ORGAN 05/06/2023 US RIGHT UPPER QUAD 07/05/2021 Encounters Encounter Diagnosis Start Date Code Code Sys tem 09/26/2021 [id number] SNOMED-CT Personal Care Team Section Performer Name Performer Role Active Date Inactive Da te
--- OUTSIDE RECORDS SUMMARY | 2024-02-17 18:30 | XMS_ITS ---
Author Organization Unknown Address [address] [place] [address] [phone] Phone Care Team Providers Care Wage Analyst Name Role Phone YISEL BUENO Registered Nurse Unavailable SILVIA CLEMENT Registered Nurse Unavailable MALIA Anthony Attending Unavailable SARA QUESADA Unavailable JES DELAROSA Primary Unavailable UNLISTED PROVIDER - REQUESTED Xhandoff Un available Results MAGNESIUM SERUM* - Collect D ate/Time: 09/19/2021 04:24 [facility] ID: [id number] [address] [place] [address], [address] LOINC: 83692-6 Test Value Unit Reference Range Code Code System Flag MAGNESIUM 1.7 mg/dL L=1.8 H=2.4 07771-0 LOINC L HCG QUANTITATIVE WHOLE MOLEC ULE* - Collect Date/Time: 09/19/2021 04:24 [facility] ID: [id number] [address] [place] [address], [address] LOINC: 86952-3 Test Value Unit Reference Range Code Code System Flag HCG, total+Beta subs <1 47210-5 LOINC COMPREHENSIVE METABOLIC PANE L (CMP) - Collect Date/Time: 09/19/2021 04:24 [facility] ID: [id number] [address] [place] [address], [address] LOINC: 39245-4 Test Value Unit Reference Range Code Code [...] H=34 2028-9 LOINC ANION GAP 10.8 mmol/L 94379-3 LOINC CALCIUM SERUM 9.5 mg/dL L=8.2 H=10.2 27618-0 LOINC BILIRUBIN TOTAL 0.7 mg/dL L=0.0 H=1.3 1975-2 LOINC ALK. PHOS. 103 U/L L=46 H=116 6768-6 LOINC SGOT (AST) 24 U/L L=15 H=37 1920-8 LOINC SGPT (ALT) 53 U/L L=12 H=78 1742-6 LOINC TOTAL PROTEIN 7.2 gm/dL L=6.0 H=8.0 2885-2 LOINC ALBUMIN 3.8 gm/dL L=3.4 H=5.0 1751-7 LOINC AGE 46 years eGFR (non-Afr.Amer.) 73 mL/min 37393-5 LOINC eGFR (Afr-Cameroonian) 88 mL/min 98907-6 LOINC CBC W/ DIFFERENTIAL* - Colle ct Date/Time: 09/19/2021 04:24 [facility] ID: [id number] [address] [place], [place], [address] LOINC: 86675-6 Test Value Unit Reference Range Code Code System Flag WBC 16.28 th/cmm L=5.00 H=10.00 6690-2 LOINC H NEUT % 73.7 % L=40.0 H=80.0 LYMPH % 18.9 % L=10.0 H=50.0 MONO % 6.0 % L=2.0 H=12.0 10385-7 LOINC EOS % 0.4 % L=0.0 H=8.0 BASO % 0.4 % L=0.0 H=3.0 IG % 0.6 % L=0.0 H=1.1 2514-8 LOINC NRBC % 0.0 % L=0.0 H=0.0 53910-8 LOINC NEUT abs count 12.0 th/cmm L=1.6 H=8.4 751-8 LOINC H LYMPH abs count 3.1 th/cmm L=1.5 H=4.0 731-0 LOINC MONO abs count 1.0 th/cmm L=0.2 H=1.0 742-7 LOINC EOS abs count 0.1 th/cmm L=0.0 H=0.5 711-2 LOINC BASO abs count 0.1 th/cmm L=0.0 H=0.2 704-7 LOINC IG abs count 0.1 th/cmm L=0.0 H=0.1 23679-3 LOINC NRBC abs count 0.0 mil/cmm L=0.0 H=0.0 78597-0 LOINC RBC 4.80 mil/cmm L=3.90 H=5.40 789-8 [...] RHEONIX* - Vannessa ect Date/Time: 09/19/2021 04:12 [facility] ID: [id number] [address] [place], [place], [id number] LOINC: 64351-6 Test Value Unit Reference Range Code Code System Flag Tier- INPATIENT/ED 33861-0 LOINC SARS COV2 RNA: NEGATIVE REFERENCE RAN GE: NEGAT 88965-[address] [facility] CT CXR ABD PELVIS WO CONTRAS T* - Completed: 09/19/2021 04:37 [facility]: Radiation optimization:?? Al l CT scans at [...] TOÑO MATTHEWS MD Transcribed by: KARIS 09/20/21/13:12 [id number] Electronically Reviewed and Signed By: ROYA MATTHEWS [...] TOÑO MATTHEWS MD Transcribed by: KARIS 09/20/2112:59 [id number] Electronically Reviewed and Signed By: ROYA MATTHEWS [...] TOÑO MATTHEWS MD Transcribed by: KARIS 09/20/2110:47 [id number] Electronically Reviewed and Signed By: ROYA MATTHEWS [...] Right humeral fracture as described. Dictated by: OTÑO MATTHEWS MD Transcribed by: KARIS 09/20/2112:41 [id number] Electronically Reviewed and Signed By: ROYA MATTHEWS [...] TOÑO MATTHEWS MD Transcribed by: KARIS 09/20/2110:44 [id number] Electronically Reviewed and Signed By: ROYA MATTHEWS [...] TOÑO MATTHEWS MD Transcribed by: KARIS 09/20/21:45 [id number] Electronically Reviewed and Signed By: ROYA MATTEHWS MD 09/22/21 08:28 Copy for: JES DELAROSA via fax Copy for: [facility] [employer] MGMT DISCHARGED XR WRIST 3V OR MORE LT* - Co mpleted: 09/19/2021 04:37 LOINC: LEFT WRIST, 4 VIEWS: No acute fracture or dislocation is present. Dictated by: TOÑO MATTHEWS MD Transcribed by: KARIS 09/20/2111:27 [id number] Electronically Reviewed and Signed By: ROYA MATTHEWS MD 09/22/21 08:28 Copy for: JES DELAROSA via fax Copy for: 185 HEALTH INFORMATION MGMT DISCHARGED Social History Type Status Start Date End Date Code Code Syst em Smoking History Current every day smoker 193887311 SNOMED CT Sex Female Vital Signs Vital Sign Value Unit [place] Value [place] Unit Date/Time Recent/Initial? Code Code System Body Mass Index 38.08 kg/m2 09/19/2021 03:10 Initial 51016 -5 LOINC Systolic Blood Pressure 130 mm[Hg] [...] Saturation 96 % 2021 06:15 Most Recent 57020 -5 LOINC O2 Saturation 94 % 2021 03:19 Initial 77801 -5 LOINC Pulse 110.0 /min 09/19/2021 06:15 Most Recent 8867- 4 LOINC Pulse 119.0 /min 09/19/2021 03:19 Initial 8867- 4 LOINC Respiration 17 /min 09/20/19 06:15 Most Recent 9279- 1 LOINC Respiration 21 /min 09/20/19 03:19 Initial 9279- 1 [facility] Temperature 36.7 Jazmine 98.1 F 09/20/19 03:19 Initial 8310- 5 [facility] Weight 88.45 kg 195.00 lbs 09/19/2021 03:10 Initial 25862 -7 [facility] Medications Medication Start Date End Date Route Frequency Dose Code Code System Medication Instructions Home Meds Cyclobenzaprine 10MG Oral Tablet 12/14/2018 10/26/2021 ORAL THREE TIMES A DAY 10 MILLIGRAMS 353911 RxNorm TAKE 10 MILLIGRAMS ORAL THREE TIMES A DAY Ondansetron 4MG Oral Tablet, Disintegrating 07/05/2021 10/26/2021 ORAL NEEDED EVERY 6 HOURS 1 TABLET 363069 RxNorm TAKE 1 TABLET ORAL NEEDED EVERY 6 HOURS FOR Nausea/Vomi ting Phenergan 25MG Rectal Suppository 07/26/2021 10/26/2021 RECTA L DAILY 1 SUPPOSITORY 087775 RxNorm INSERT 1 SUPPOSITORY RECTAL DAILY HYDROcodone bitartrate-aceta minophen 5MG-325MG Oral Tablet 09/19/2021 10/26/2021 ORAL EVERY 6 HOURS 1 TABLET 391002 RxNorm TAKE 1 TABLET ORAL EVERY 6 HOURS Zithromax 250MG Oral Tablet 04/17/2022 01/25/2023 ORAL DAILY 1 TABLET 908521 RxNorm TAKE 1 TABLET ORAL DAILY predniSONE 20MG Oral Tablet 04/17/2022 01/07/2023 ORAL DAILY 2 TABLET 028266 RxNorm TAKE 2 TABLET ORAL DAILY predniSONE 20MG Oral Tablet 01/07/2023 06/23/2023 ORAL DAILY 2 TABLET 130907 RxNorm TAKE 2 TABLET ORAL DAILY Percocet 5MG-325MG Oral Tablet 01/07/2023 06/23/2023 ORAL NEEDED EVERY 4 HOURS 1 TABLET 0942161 RxNorm TAKE 1 TABLET ORAL NEEDED EVERY 4 HOURS predniSONE 20MG Oral Tablet 01/07/2023 01/07/2023 ORAL DAILY 2 TABLET 479567 RxNorm TAKE 2 TABLET ORAL DAILY SEROquel 100MG Oral Tablet 06/23/2023 11/11/2023 ORAL BEDTIM E 150 MILLIGRAMS 481523 RxNorm TAKE 150 MILLIGRAMS ORAL BEDTIME LaMICtal 150MG Oral Tablet 06/23/2023 11/11/2023 ORAL DAILY 1 TABLET RxNorm TAKE 1 TABLET ORAL DAILY Ondansetron 4MG Oral Tablet 06/23/2023 01/31/2024 ORAL NEEDED EVERY 6 HOURS 4 MILLIGRAMS 294340 RxNorm TAKE 4 MILLIGRAMS ORAL NEEDED EVERY 6 HOURS HumaLOG 100U/1ML Injection Solution 06/23/2023 Unknown INJEC TION DAILY 1 unit(s) 955476 RxNorm 1 EACH INJECTION DAILY Spironolactone 100MG Oral Tablet 06/23/2023 Unknown ORAL DAILY 100 MILLIGRAMS 19810531 RxNorm TAKE 100 MILLIGRAMS ORAL DAILY Vraylar 6MG Oral Capsule 06/23/2023 11/11/2023 ORAL DAILY 6 MILLIGRAMS 8960729 RxNorm TAKE 6 MILLIGRAMS ORAL DAILY Mounjaro [...] Status Code Code System SLURRED SPEECH active 286919457 SNOME D-CT DIABETES 2 active 05563061 SNOMED-CT BIPOLAR DISORDER active 82070498 SNO MED-CT PTSD 09/19/2021 resolved 87243856 SNOMED-CT FIBROMYALGIA 09/19/2021 resolved 449524593 SNOMED -CT DIABETES 2 07/05/2021 resolved 70937324 SNOMED-C T FALL FROM STAIRS 06/23/2023 resolved 803086489 SN OMED-CT CLOSED FRACTURE OF RIGHT HUMERUS 06/23/2023 resolved 93097557903472196 SNOMED-CT HTN 09/19/2021 resolved 88795426 SNOMED-CT BIPOLAR DISORDER 09/19/2021 resolved 37634037 SN OMED-CT Allergies and Adverse Reactions Allergy Substance Reaction Severity Start Date Concern Status Co de Code System LISINOPRIL Active 54246 RxNorm AMBIEN Altered Mental Status (SNOMED-CT: 785669172) Active 369286 RxNorm Plan of Treatment Lab Draw 07/30/2020 [...]
--- OUTSIDE RECORDS SUMMARY | 2024-02-17 18:31 | XMS_ITS ---
Author Organization Unknown Address [address] [place] [address] [phone] Phone Care Team Providers Care Air And Water Filler Name Role Phone TIMBO ADAMARIS PHELAN Registered [...] by: CEO ANGEL DRAPER MD Transcribed by: [facility] 01/04/22/14:03 D December 8:26:04 AM [id number] Electronically Reviewed and Signed By: ANGEL DRAPER MD 01/04/22 14:18 Copy for: JES DELAROSA via fax Copy for: [facility] HEALTH INFORMATION MGMT DISCHARGED Social History Type Status Start Date End Date Code Code Syst em Smoking History Current every day smoker 120592951 SNOMED CT Sex Female Vital Signs Vital Sign Value Unit Ashley Value Ashley Unit Date/Time Recent/Initial? Code Code System Body Mass Index 38.08 kg/m2 01/03/2022 16:02 Initial 84389 -5 LOINC Systolic Blood Pressure 147 mm[Hg] 01/03/2022 17:52 Most Recent 8480- 6 LOINC Diastolic Blood Pressure 78 mm[Hg] 01/03/2022 17:52 Most Recent 8462- 4 LOINC Systolic Blood Pressure 138 mm[Hg] 01/03/2022 16:02 Initial 8480- 6 [facility] Diastolic Blood Pressure 69 mm[Hg] 01/03/2022 16:02 Initial 8462- 4 [facility] Body Surface Area 1.94 m2 01/03/2022 16:02 Initial 3140- 1 INC Height 152.400 0 cm 60.00 in 01/03/2022 16:02 Initial 8302- 2 INC O2 Saturation 99 % 2021 17:52 Most Recent 87497 -5 INC O2 Saturation 99 % 2021 16:02 Initial 02547 -5 INC Pulse 108.0 /min 01/03/2022 17:52 Most Recent 8867- 4 INC Pulse 101.0 /min 01/03/2022 16:02 Initial 8867- 4 LOINC Respiration 18 /min 01/04/20 17:52 Most Recent 9279- 1 LOINC Respiration 18 /min 01/04/20 16:02 Initial 9279- 1 INC Temperature 36.1 Jazmine 97.0 F 01/04/20 17:52 Most Recent 8310- 5 INC Temperature 36.0 Jazmine 96.8 F 01/04/20 16:02 Initial 8310- 5 [facility] Weight 88.45 kg 195.00 lbs 01/03/2022 16:02 Initial 53538 -7 [facility] Medications Medication Start Date End Date Route Frequency Dose Code Code System Medication Instructions Home Meds Zithromax 250MG Oral Tablet 04/17/2022 01/25/2023 ORAL DAILY 1 TABLET 037193 RxNorm TAKE 1 TABLET ORAL DAILY predniSONE 20MG Oral Tablet 04/17/2022 01/07/2023 ORAL DAILY 2 TABLET 520959 RxNorm TAKE 2 TABLET ORAL DAILY Percocet 5MG-325MG Oral Tablet 01/07/2023 06/23/2023 ORAL NEEDED EVERY 4 HOURS 1 TABLET 3872535 RxNorm TAKE 1 TABLET ORAL NEEDED EVERY 4 HOURS predniSONE 20MG Oral Tablet 01/07/2023 01/07/2023 ORAL DAILY 2 TABLET 855531 RxNorm TAKE 2 TABLET ORAL DAILY predniSONE 20MG Oral Tablet 01/07/2023 06/23/2023 ORAL DAILY 2 TABLET 113823 RxNorm TAKE 2 TABLET ORAL DAILY Vraylar 6MG Oral Capsule 06/23/2023 11/11/2023 ORAL DAILY 6 MILLIGRAMS 0889357 RxNorm TAKE 6 MILLIGRAM S ORAL DAILY LaMICtal 150MG Oral Tablet 06/23/2023 11/11/2023 ORAL DAILY 1 TABLET RxNorm TAKE 1 TABLET ORAL DAILY HumaLOG 100U/1ML Injection Solution 06/23/2023 Unknown INJECTIO N DAILY 1 unit(s) 718040 RxNorm 1 EACH INJECTION DAILY Ondansetron 4MG Oral Tablet 06/23/2023 01/31/2024 ORAL NEEDED EVERY 6 HOURS 4 MILLIGRAMS 204327 RxNorm TAKE 4 MILLIGRAM S ORAL NEEDED EVERY 6 HOURS SEROquel 100MG Oral Tablet 06/23/2023 11/11/2023 ORAL BEDTIME 150 MILLIGRAMS 004109 RxNorm TAKE 150 MILLIGRAM S ORAL BEDTIME [...] Status Code Code System SLURRED SPEECH active 887115770 SNOME D-CT DIABETES 2 active 00832305 SNOMED-CT BIPOLAR DISORDER active 59794211 SNO MED-CT PTSD 09/19/2021 resolved 57306742 SNOMED-CT FIBROMYALGIA 09/19/2021 resolved 530576526 SNOMED -CT DIABETES 2 07/05/2021 resolved 47992913 SNOMED-C T FALL FROM STAIRS 06/23/2023 resolved 887672580 SN OMED-CT CLOSED FRACTURE OF RIGHT HUMERUS 06/23/2023 resolved 68674093718553265 SNOMED-CT HTN 09/19/2021 resolved 49769072 SNOMED-CT BIPOLAR DISORDER 09/19/2021 resolved 52479306 SN OMED-CT Allergies and Adverse Reactions Allergy Substance Reaction Severity Start Date Concern Status Co de Code System LISINOPRIL Active 68963 RxNorm AMBIEN Altered Mental Status (SNOMED-CT: 889366791) Active 163287 RxNorm Plan of Treatment Lab Draw 07/30/2020 Lab Draw 05/28/2020 US ABDOMEN LIMITED 1 ORGAN 05/06/2023 US RIGHT UPPER QUAD 07/05/2021 Encounters Encounter Diagnosis Start Date Code Code Sys tem COVID-19 01/03/2022 SNOMED-CT Personal Care Team Section Performer Name Performer Role Active Date Inactive Da te
--- OUTSIDE RECORDS SUMMARY | 2024-02-17 18:31 | XMS_ITS ---
Author Organization Unknown Address [address] [place] [address] [phone] Phone Care Team Providers Care Insole Toe Snipping Machine Operator Name Role Phone AVERY ANGE Registered Nurse [...] No acute fracture or dislocation. Dictated by: TÑOO MATTHEWS MD Transcribed by: KARIS 10/27/2112:57 [id number] Electronically Reviewed and Signed By: ROYA MATTHEWS [...] by: TOÑO MATTHEWS MD Transcribed by: KARIS 10/27/21:59 [id number] Electronically Reviewed and Signed By: ROYA MATTHEWS MD 10/27/21 14:33 Copy for: JES DELAROSA via fax Copy for: 185 HEALTH INFORMATION MGMT DISCHARGED Social History Type Status Start Date End Date Code Code Syst em Smoking History Current every day smoker 238806261 SNOMED CT Sex Female Vital Signs Vital Sign Value Unit Almo Value Almo Unit Date/Time Recent/Initial? Code Code System Body Mass Index 37.11 kg/m2 10/26/2021 17:15 Initial 45763 -5 LOINC Systolic Blood Pressure 143 mm[Hg] [...] Saturation 98 % 2021 18:58 Most Recent 34588 -5 INC O2 Saturation 96 % 2021 17:15 Initial 40519 -5 INC Pulse 98.0 /min 10/26/2021 18:58 Most Recent 8867- 4 INC Pulse 110.0 /min 10/26/2021 17:15 Initial 8867- 4 LOINC Respiration 17 /min 10/27/19 22 18:58 Most Recent 9279- 1 LOINC Respiration 18 /min 10/27/19 22 17:15 Initial 9279- 1 INC Temperature 35.9 Jazmine 96.6 F 10/27/19 22 17:15 Initial 8310- 5 INC Weight 86.18 kg 190.00 lbs 10/26/2021 17:15 Initial 74125 -7 [facility] Medications Medication Start Date End Date Route Frequency Dose Code Code System Medication Instructions Home Meds Cyclobenzaprine 10MG Oral Tablet 12/14/2018 10/26/2021 ORAL THREE TIMES A DAY 10 MILLIGRAMS 460849 RxNorm TAKE 10 MILLIGRAMS ORAL THREE TIMES A DAY Ondansetron 4MG Oral Tablet, Disintegrating 07/05/2021 10/26/2021 ORAL NEEDED EVERY 6 HOURS 1 TABLET 509562 RxNorm TAKE 1 TABLET ORAL NEEDED EVERY 6 HOURS FOR Nausea/Vomi ting Phenergan 25MG Rectal Suppository 07/26/2021 10/26/2021 RECTA L DAILY 1 SUPPOSITORY 147014 RxNorm INSERT 1 SUPPOSITORY RECTAL DAILY HYDROcodone bitartrate-aceta minophen 5MG-325MG Oral Tablet 09/19/2021 10/26/2021 ORAL EVERY 6 HOURS 1 TABLET 772201 RxNorm TAKE 1 TABLET ORAL EVERY 6 HOURS Zithromax 250MG Oral Tablet 04/17/2022 01/25/2023 ORAL DAILY 1 TABLET 036274 RxNorm TAKE 1 TABLET ORAL DAILY predniSONE 20MG Oral Tablet 04/17/2022 01/07/2023 ORAL DAILY 2 TABLET 476893 RxNorm TAKE 2 TABLET ORAL DAILY predniSONE 20MG Oral Tablet 01/07/2023 06/23/2023 ORAL DAILY 2 TABLET 421879 RxNorm TAKE 2 TABLET ORAL DAILY Percocet 5MG-325MG Oral Tablet 01/07/2023 06/23/2023 ORAL NEEDED EVERY 4 HOURS 1 TABLET 3586098 RxNorm TAKE 1 TABLET ORAL NEEDED EVERY 4 HOURS predniSONE 20MG Oral Tablet 01/07/2023 01/07/2023 ORAL DAILY 2 TABLET 438845 RxNorm TAKE 2 TABLET ORAL DAILY SEROquel 100MG Oral Tablet 06/23/2023 11/11/2023 ORAL BEDTIM E 150 MILLIGRAMS 575116 RxNorm TAKE 150 MILLIGRAMS ORAL BEDTIME LaMICtal 150MG Oral Tablet 06/23/2023 11/11/2023 ORAL DAILY 1 TABLET RxNorm TAKE 1 TABLET ORAL DAILY Ondansetron 4MG Oral Tablet 06/23/2023 01/31/2024 ORAL NEEDED EVERY 6 HOURS 4 MILLIGRAMS 413068 RxNorm TAKE 4 MILLIGRAMS ORAL NEEDED EVERY 6 HOURS HumaLOG 100U/1ML Injection Solution 06/23/2023 Unknown INJEC TION DAILY 1 unit(s) 681511 RxNorm 1 EACH INJECTION DAILY Spironolactone 100MG Oral Tablet 06/23/2023 Unknown ORAL DAILY 100 MILLIGRAMS 897088 RxNorm TAKE 100 MILLIGRAMS ORAL DAILY Vraylar 6MG Oral Capsule 06/23/2023 11/11/2023 ORAL DAILY 6 MILLIGRAMS 8552141 RxNorm TAKE 6 MILLIGRAMS ORAL DAILY Mounjaro [...] Code Code Syste m C section completed 89293861 SNOMEDCT Cholecystectomy completed 03596915 SNOMEDCT Tonsillectomy completed 661602724 SNOMEDCT Repair or plastic surgery on humerus completed 18575559 SNOMEDCT Problems Problem Start Date Resolved Date Status Code Code System SLURRED SPEECH active 661626094 SNOME D-CT DIABETES 2 active 96317585 SNOMED-CT BIPOLAR DISORDER active 09727986 SNO MED-CT PTSD 09/19/2021 resolved 32287731 SNOMED-CT FIBROMYALGIA 09/19/2021 resolved 888489982 SNOMED -CT DIABETES 2 07/05/2021 resolved 49845860 SNOMED-C T FALL FROM STAIRS 06/23/2023 resolved 017417688 SN OMED-CT CLOSED FRACTURE OF RIGHT HUMERUS 06/23/2023 resolved 29333956550551813 SNOMED-CT HTN 09/19/2021 resolved 23326757 SNOMED-CT BIPOLAR DISORDER 09/19/2021 resolved 22260205 SN OMED-CT Allergies and Adverse Reactions Allergy Substance Reaction Severity Start Date Concern Status Co de Code System LISINOPRIL Active 78032 RxNorm AMBIEN Altered Mental Status (SNOMED-CT: 327261755) Active 479661 RxNorm Plan of Treatment Lab Draw 07/30/2020 [...]
--- OUTSIDE RECORDS SUMMARY | 2024-02-17 18:31 | XMS_ITS ---
Author Organization Unknown Address [address] [place] [address] [phone] Phone Care Team Providers Care Brand Communications Manager Name Role Phone GLENNA PALOMARES Registered Nurse Unavailable MADY Martinez Attending Unavailable JES DELAROSA Primary Unavailable UNLISTED PROVIDER - REQUESTED Xhandoff Un available Social History Type Status Start Date End Date Code Code Syst em Smoking History Current every day smoker 953827555 SNOMED CT Sex Female Vital Signs Vital Sign Value Unit [place] Value [place] Unit Date/Time Recent/Initial? Code Code System Body Mass Index 40.04 kg/m2 09/25/2021 16:35 Initial 09032 -5 [facility] Systolic Blood Pressure 138 mm[Hg] 09/25/2021 16:35 Initial 8480- 6 [facility] Diastolic Blood Pressure 72 mm[Hg] 09/25/2021 16:35 Initial 8462- 4 [facility] Body Surface Area 1.98 m2 09/25/2021 16:35 Initial 3140- 1 [facility] Height 152.400 0 cm 60.00 in 09/25/2021 16:35 Initial 8302- 2 [facility] O2 Saturation 96 % 2021 16:35 Initial 69314 -5 [facility] Pulse 92.0 /min 09/25/2021 16:35 Initial 8867- 4 [facility] Respiration 18 /min 09/26/19 16:35 Initial 9279- 1 [facility] Temperature 36.9 Jazmine 98.4 F 09/26/19 16:35 Initial 8310- 5 [facility] Weight 92.99 kg 205.00 lbs 09/25/2021 16:35 Initial 91692 -7 [facility] Medications Medication Start Date End Date Route Frequency Dose Code Code System Medication Instructions Home Meds Cyclobenzaprine 10MG Oral Tablet 12/14/2018 10/26/2021 ORAL THREE TIMES A DAY 10 MILLIGRAMS 996698 RxNorm TAKE 10 MILLIGRAMS ORAL THREE TIMES A DAY Ondansetron 4MG Oral Tablet, Disintegrating 07/05/2021 10/26/2021 ORAL NEEDED EVERY 6 HOURS 1 TABLET 523662 RxNorm TAKE 1 TABLET ORAL NEEDED EVERY 6 HOURS FOR Nausea/Vomi ting Phenergan 25MG Rectal Suppository 07/26/2021 10/26/2021 RECTA L DAILY 1 SUPPOSITORY 686709 RxNorm INSERT 1 SUPPOSITORY RECTAL DAILY HYDROcodone bitartrate-aceta minophen 5MG-325MG Oral Tablet 09/19/2021 10/26/2021 ORAL EVERY 6 HOURS 1 TABLET 980463 RxNorm TAKE 1 TABLET ORAL EVERY 6 HOURS Zithromax 250MG Oral Tablet 04/17/2022 01/25/2023 ORAL DAILY 1 TABLET 835518 RxNorm TAKE 1 TABLET ORAL DAILY predniSONE 20MG Oral Tablet 04/17/2022 01/07/2023 ORAL DAILY 2 TABLET 606651 RxNorm TAKE 2 TABLET ORAL DAILY predniSONE 20MG Oral Tablet 01/07/2023 06/23/2023 ORAL DAILY 2 TABLET 563175 RxNorm TAKE 2 TABLET ORAL DAILY Percocet 5MG-325MG Oral Tablet 01/07/2023 06/23/2023 ORAL NEEDED EVERY 4 HOURS 1 TABLET 6867242 RxNorm TAKE 1 TABLET ORAL NEEDED EVERY 4 HOURS predniSONE 20MG Oral Tablet 01/07/2023 01/07/2023 ORAL DAILY 2 TABLET 797087 RxNorm TAKE 2 TABLET ORAL DAILY SEROquel 100MG Oral Tablet 06/23/2023 11/11/2023 ORAL BEDTIM E 150 MILLIGRAMS 855543 RxNorm TAKE 150 MILLIGRAMS ORAL BEDTIME LaMICtal 150MG Oral Tablet 06/23/2023 11/11/2023 ORAL DAILY 1 TABLET RxNorm TAKE 1 TABLET ORAL DAILY Ondansetron 4MG Oral Tablet 06/23/2023 01/31/2024 ORAL NEEDED EVERY 6 HOURS 4 MILLIGRAMS 733256 RxNorm TAKE 4 MILLIGRAMS ORAL NEEDED EVERY 6 HOURS HumaLOG 100U/1ML Injection Solution 06/23/2023 Unknown INJEC TION DAILY 1 unit(s) 305108 RxNorm 1 EACH INJECTION DAILY Spironolactone 100MG Oral Tablet 06/23/2023 Unknown ORAL DAILY 100 MILLIGRAMS 457415 RxNorm TAKE 100 MILLIGRAMS ORAL DAILY Vraylar 6MG Oral Capsule 06/23/2023 11/11/2023 ORAL DAILY 6 MILLIGRAMS 0284436 RxNorm TAKE 6 MILLIGRAMS ORAL DAILY Kamiro [...] Status Code Code System SLURRED SPEECH active 851782108 SNOME D-CT DIABETES 2 active 13816265 SNOMED-CT BIPOLAR DISORDER active 36174298 SNO MED-CT PTSD 09/19/2021 resolved 73817464 SNOMED-CT FIBROMYALGIA 09/19/2021 resolved 740057471 SNOMED -CT DIABETES 2 07/05/2021 resolved 04913958 SNOMED-C T FALL FROM STAIRS 06/23/2023 resolved 736414200 SN OMED-CT CLOSED FRACTURE OF RIGHT HUMERUS 06/23/2023 resolved 05035888464010932 SNOMED-CT HTN 09/19/2021 resolved 70975298 SNOMED-CT BIPOLAR DISORDER 09/19/2021 resolved 55464419 SN OMED-CT Allergies and Adverse Reactions Allergy Substance Reaction Severity Start Date Concern Status Co de Code System LISINOPRIL Active 49325 RxNorm AMBIEN Altered Mental Status (SNOMED-CT: 766520668) Active 714865 RxNorm Plan of Treatment Lab Draw 07/30/2020 Lab Draw 05/28/2020 US ABDOMEN LIMITED 1 ORGAN 05/06/2023 US RIGHT UPPER QUAD 07/05/2021 Encounters Encounter Diagnosis Start Date Code Code Sys tem Localized edema 09/25/2021 SNOMED-CT Personal Care Team Section Performer Name Performer Role Active Date Inactive Da te
--- OUTSIDE RECORDS SUMMARY | 2024-02-17 18:31 | XMS_ITS ---
Author Organization Unknown Address [address] [place] [address] [phone] Phone Care Team Providers Care Water Pump Installer Name Role Phone TALA Davenport Attending Unavailable JES DELAROSA Primary Unavailable Social History Type Status Start Date End Date Code Code Syst em Smoking History Current every day smoker 305752060 SNOMED CT Sex Female Medications Medication Start Date End Date Route Frequency Dose Code Code System Medication Instructions Home Meds Zithromax 250MG Oral Tablet 04/17/2022 01/25/2023 ORAL DAILY 1 TABLET 676447 RxNorm TAKE 1 TABLET ORAL DAILY predniSONE 20MG Oral Tablet 04/17/2022 01/07/2023 ORAL DAILY 2 TABLET 715143 RxNorm TAKE 2 TABLET ORAL DAILY Percocet 5MG-325MG Oral Tablet 01/07/2023 06/23/2023 ORAL NEEDED EVERY 4 HOURS 1 TABLET 6501140 RxNorm TAKE 1 TABLET ORAL NEEDED EVERY 4 HOURS predniSONE 20MG Oral Tablet 01/07/2023 01/07/2023 ORAL DAILY 2 TABLET 846916 RxNorm TAKE 2 TABLET ORAL DAILY predniSONE 20MG Oral Tablet 01/07/2023 06/23/2023 ORAL DAILY 2 TABLET 360689 RxNorm TAKE 2 TABLET ORAL DAILY Vraylar 6MG Oral Capsule 06/23/2023 11/11/2023 ORAL DAILY 6 MILLIGRAMS 4930548 RxNorm TAKE 6 MILLIGRAM S ORAL DAILY LaMICtal 150MG Oral Tablet 06/23/2023 11/11/2023 ORAL DAILY 1 TABLET RxNorm TAKE 1 TABLET ORAL DAILY HumaLOG 100U/1ML Injection Solution 06/23/2023 Unknown INJECTIO N DAILY 1 unit(s) 804449 RxNorm 1 EACH INJECTION DAILY Ondansetron 4MG Oral Tablet 06/23/2023 01/31/2024 ORAL NEEDED EVERY 6 HOURS 4 MILLIGRAMS 664456 RxNorm TAKE 4 MILLIGRAM S ORAL NEEDED EVERY 6 HOURS SEROquel 100MG Oral Tablet 06/23/2023 11/11/2023 ORAL BEDTIME 150 MILLIGRAMS 242582 RxNorm TAKE 150 MILLIGRAM S ORAL BEDTIME Spironolacton e 100MG Oral Tablet 06/23/2023 Unknown ORAL DAILY 100 MILLIGRAMS 708696 RxNorm TAKE 100 MILLIGRAM S ORAL DAILY [...] Status Code Code System SLURRED SPEECH active 608965788 SNOME D-CT DIABETES 2 active 86399951 SNOMED-CT BIPOLAR DISORDER active 59728250 SNO MED-CT PTSD 09/19/2021 resolved 21789632 SNOMED-CT FIBROMYALGIA 09/19/2021 resolved 813439851 SNOMED -CT DIABETES 2 07/05/2021 resolved 73250981 SNOMED-C T FALL FROM STAIRS 06/23/2023 resolved 663048586 SN OMED-CT CLOSED FRACTURE OF RIGHT HUMERUS 06/23/2023 resolved 39894775240484752 SNOMED-CT HTN 09/19/2021 resolved 70029190 SNOMED-CT BIPOLAR DISORDER 09/19/2021 resolved 91658198 SN OMED-CT Allergies and Adverse Reactions Allergy Substance Reaction Severity Start Date Concern Status Co de Code System LISINOPRIL Active 23898 RxNorm AMBIEN Altered Mental Status (SNOMED-CT: 992592981) Active 666374 RxNorm Plan of Treatment Lab Draw 07/30/2020 Lab Draw 05/28/2020 US ABDOMEN LIMITED 1 ORGAN 05/06/2023 US RIGHT UPPER QUAD 07/05/2021 Encounters Encounter Diagnosis Start Date Code Code Sys tem 02/15/2022 [id number] SNOMED-CT Personal Care Team Section Performer Name Performer Role Active Date Inactive Da te
--- OUTSIDE RECORDS SUMMARY | 2024-02-17 18:32 | XMS_ITS ---
Author Organization Unknown Address [address] [place] [address] [phone] Phone Care Team Providers Care Casino Floor Person Name Role Phone HENOK Crawford Attending Unavailable YELITZA RAJPUT Primary Unavailable Results D-DIMER - Collect Date/Time: 11/13/2022 16:05 [facility] ID: [id number] - [id number] [address] [place] [address], [address] LOINC: 05019-1 Test Value Unit Reference Range Code Code System Flag D-DIMER 0.26 mg/L L=0.19 H=0.50 17496-5 LOINC XR CHEST 2V PA AND LATERAL - Completed: 11/13/2022 16:12 LOINC: [facility] RADIOLOGY [place], [place] [address] PACS CONTINUOUS IMPROVEMENT ANALYST REPORT Patient Name: HILDA CROWLEY MRN: Sex: : Age: [id number] F [id number] 47 Account: Accession: Admit: StayType: [id number] 11/13/2022 O/P Ordered: Order ID: Submitted: Ordering Provider: 11/13/2022 15:59 [id number] MARIE NAJERA Completed: Technologist: Resulted: 11/13/2022 16:12 [...] em Smoking History Current every day smoker 505900870 SNOMED CT Sex Female Medications Medication Start Date End Date Route Frequency Dose Code Code System Medication Instructions Home Meds Zithromax 250MG Oral Tablet 04/17/2022 01/25/2023 ORAL DAILY 1 TABLET 344895 RxNorm TAKE 1 TABLET ORAL DAILY predniSONE 20MG Oral Tablet 04/17/2022 01/07/2023 ORAL DAILY 2 TABLET 117881 RxNorm TAKE 2 TABLET ORAL DAILY Percocet 5MG-325MG Oral Tablet 01/07/2023 06/23/2023 ORAL NEEDED EVERY 4 HOURS 1 TABLET 6797847 RxNorm TAKE 1 TABLET ORAL NEEDED EVERY 4 HOURS predniSONE 20MG Oral Tablet 01/07/2023 01/07/2023 ORAL DAILY 2 TABLET 480938 RxNorm TAKE 2 TABLET ORAL DAILY predniSONE 20MG Oral Tablet 01/07/2023 06/23/2023 ORAL DAILY 2 TABLET 994966 RxNorm TAKE 2 TABLET ORAL DAILY Vraylar 6MG Oral Capsule 06/23/2023 11/11/2023 ORAL DAILY 6 MILLIGRAMS 2668064 RxNorm TAKE 6 MILLIGRAM S ORAL DAILY LaMICtal 150MG Oral Tablet 06/23/2023 11/11/2023 ORAL DAILY 1 TABLET RxNorm TAKE 1 TABLET ORAL DAILY HumaLOG 100U/1ML Injection Solution 06/23/2023 Unknown INJECTIO N DAILY 1 unit(s) 352209 RxNorm 1 EACH INJECTION DAILY Ondansetron 4MG Oral Tablet 06/23/2023 01/31/2024 ORAL NEEDED EVERY 6 HOURS 4 MILLIGRAMS 675503 RxNorm TAKE 4 MILLIGRAM S ORAL NEEDED EVERY 6 HOURS SEROquel 100MG Oral Tablet 06/23/2023 11/11/2023 ORAL BEDTIME 150 MILLIGRAMS 320299 RxNorm TAKE 150 MILLIGRAM S ORAL BEDTIME Spironolacton e 100MG Oral Tablet 06/23/2023 Unknown ORAL DAILY 100 MILLIGRAMS 693583 RxNorm TAKE 100 MILLIGRAM S ORAL DAILY [...] Status Code Code System SLURRED SPEECH active 181267611 SNOME D-CT DIABETES 2 active 13206312 SNOMED-CT BIPOLAR DISORDER active 95765011 SNO MED-CT PTSD 09/19/2021 resolved 74616145 SNOMED-CT FIBROMYALGIA 09/19/2021 resolved 583729212 SNOMED -CT DIABETES 2 07/05/2021 resolved 23801263 SNOMED-C T FALL FROM STAIRS 06/23/2023 resolved 361319251 SN OMED-CT CLOSED FRACTURE OF RIGHT HUMERUS 06/23/2023 resolved 28391309144292527 SNOMED-CT HTN 09/19/2021 resolved 54795596 SNOMED-CT BIPOLAR DISORDER 09/19/2021 resolved 03440002 SN OMED-CT Allergies and Adverse Reactions Allergy Substance Reaction Severity Start Date Concern Status Co de Code System LISINOPRIL Active 09829 RxNorm AMBIEN Altered Mental Status (SNOMED-CT: 335113953) Active 379875 RxNorm Plan of Treatment Lab Draw 07/30/2020 Lab Draw 05/28/2020 US ABDOMEN LIMITED 1 ORGAN 05/06/2023 US RIGHT UPPER QUAD 07/05/2021 Encounters Encounter Diagnosis Start Date Code Code Sys tem Acute cough 11/13/2022 SNOMED-CT Personal Care Team Section Performer Name Performer Role Active Date Inactive Da te
--- OUTSIDE RECORDS SUMMARY | 2024-02-17 18:32 | XMS_ITS ---
Author Organization Unknown Address [address] [place] [phone] Phone Care Team Providers Care Smash Piecer Name Role Phone VEDA VELAZQUEZ Registered Nurse Unavailable YISEL BUENO Registered Nurse Unavailable DAI AMARAL Registered Nurse UnavailМарина Anthony Attending Unavailable JES DELAROSA Primary Unavailable UNLISTED PROVIDER - REQUESTED Xhandoff Un available Results LACTIC ACID - Collect Date/T eber: 05/16/2022 19:35 [facility] ID: [id number] [address] [place] [address], [address] LOINC: Test Value Unit Reference Range Code Code System Flag LACTIC ACID 2.8 mmol/L L=0.7 H=2.1 05151-1 LOINC H TEST QUAL (SERUM) - Collect Date/Time: 05/16/2022 15:44 [facility] ID: [id number] [address] [place] [address], [address] LOINC: 2118-8 Test Value Unit Reference Range Code Code System Flag TEST NEGATIVE 6-3 LOINC URINALYSIS WITH REFLEX CULT IF POSITIVE* - Collect Date/Time: 05/16/2022 15:44 [facility] ID: [id number] [address] [place] [address], [address] LOINC: 70016-0 Test Value Unit Reference Range Code Code System Flag COLLECTION MODE: CLEAN CATCH 92534-0 LOINC Color YELLOW yellow 5778-6 LOINC Appearance CLEAR clear 5767-9 LOINC Glucose urine >=1000 negative mg/dl 95695-3 [facility] A Bilirubin NEGATIVE negative 5770-3 [facility] Ketones NEGATIVE negative mg/dl 2514-8 [facility] Spec gravity 1.020 1.003 - 1.030 5811-5 [facility] pH urine 6.0 5.0 - 7.0 2756-5 [facility] Protein NEGATIVE negative mg/dl 86579-4 [facility] Urobilinogen 0.2 <or= 1 EU/dl 74121-2 LOINC Nitrite. NEGATIVE negative 5802-4 LOINC Blood NEGATIVE negative 5794-3 [facility] Leukocytes. NEGATIVE negative MICROSCOPIC NOT INDICAT ORDER VENOUS BLOOD GAS* - Co llect Date/Time: 05/16/2022 15:05 [facility] ID: [id number] [address] [place] [address], [id number] LOINC: Test Value Unit Reference Range Code [...] SERUM* - Collect D ate/Time: 05/16/2022 15:00 [facility] ID: [id number] [address] [place] [address], [address] LOINC: 93075-0 Test Value Unit Reference Range Code Code System Flag MAGNESIUM 1.7 mg/dL L=1.8 H=2.4 19620-4 LOINC L LIPASE* NEW - Collect Date/T eber: 05/16/2022 15:00 [facility] ID: [id number] [address], [place], [id number] LOINC: 3040-3 Test Value Unit Reference Range Code Code System Flag LIPASE. 38 U/L L=16 H=77 CBC W/ DIFFERENTIAL* - Colle ct Date/Time: 05/16/2022 15:00 [facility] ID: [id number] [address], [place], [address] LOINC: 23668-6 Test Value Unit Reference Range Code Code System Flag WBC 14.05 th/cmm L=5.00 H=10.00 6690-2 LOINC H NEUT % 57.5 % L=40.0 H=80.0 LYMPH % 34.7 % L=10.0 H=50.0 MONO % 6.4 % L=2.0 H=12.0 31979-7 LOINC EOS % 0.6 % L=0.0 H=8.0 BASO % 0.5 % L=0.0 H=3.0 IG % 0.3 % L=0.0 H=1.1 2514-8 LOINC NRBC % 0.0 % L=0.0 H=0.0 79488-5 LOINC NEUT abs count 8.1 th/cmm L=1.6 H=8.4 751-8 LOINC LYMPH abs count 4.9 th/cmm L=1.5 H=4.0 731-0 LOINC H MONO abs count 0.9 th/cmm L=0.2 H=1.0 742-7 LOINC EOS abs count 0.1 th/cmm L=0.0 H=0.5 711-2 LOINC BASO abs count 0.1 th/cmm L=0.0 H=0.2 704-7 LOINC IG abs count 0.0 th/cmm L=0.0 H=0.1 35089-5 LOINC NRBC abs count 0.0 mil/cmm L=0.0 H=0.0 94103-8 LOINC RBC 5.02 mil/cmm L=3.90 H=5.40 789-8 [...] QUAL - Collect Date/ Time: 05/16/2022 15:00 [facility] ID: [id number] [address] [place] [address], [address] LOINC: 5567-3 Test Value Unit Reference Range Code Code System Flag ACETONE NEGATIVE 5567-3 [facility] COMPREHENSIVE METABOLIC PANE L (CMP) - Collect Date/Time: 05/16/2022 15:00 [facility] ID: [id number] [address] [place] [address], [address] LOINC: 86875-1 Test Value Unit Reference Range Code Code [...] H=34 2028-9 LOINC ANION GAP 15.6 mmol/L 99849-8 LOINC CALCIUM SERUM 9.8 mg/dL L=8.2 H=10.2 37251-0 LOINC BILIRUBIN TOTAL 0.9 mg/dL L=0.0 H=1.3 1975-2 LOINC ALK. PHOS. 82 U/L L=46 H=116 6768-6 LOINC SGOT (AST) 31 U/L L=15 H=37 1920-8 LOINC SGPT (ALT) 41 U/L L=12 H=78 1742-6 LOINC TOTAL PROTEIN 8.1 gm/dL L=6.0 H=8.0 2885-2 LOINC H ALBUMIN 4.4 gm/dL L=3.4 H=5.0 1751-7 LOINC AGE 46 years eGFR (non-Afr.Amer.) 58 mL/min 52555-7 LOINC eGFR (Afr-French) 70 mL/min 65680-3 LOINC LACTIC ACID - Collect Date/T eber: 05/16/2022 15:00 [facility] ID: [id number] [address], [place], [address] LOINC: Test Value Unit Reference Range Code Code System Flag LACTIC ACID 5.7 mmol/L L=0.7 H=2.1 18227-3 LOINC HH GLUCOSE FINGER/HEEL CAPILLAR Y - Collect Date/Time: 05/16/2022 13:33 [facility] ID: [id number] [address] [place] [address], [id number] LOINC: 45766-9 Test Value Unit Reference Range Code Code System Flag GLUCOSE CAP 254 mg/dL L=70 H=116 H Social History Type Status Start Date End Date Code Code Syst em Smoking History Current every day smoker 409881523 SNOMED CT Sex Female Vital Signs Vital Sign Value Unit [place] Value [place] Unit Date/Time Recent/Initial? Code Code System Body Mass Index 38.47 kg/m2 05/16/2022 13:27 Initial 02211 -5 LOINC Systolic Blood Pressure 140 mm[Hg] 05/16/2022 21:15 Most Recent 8480- 6 LOINC Diastolic Blood Pressure 86 mm[Hg] 05/16/2022 21:15 Most Recent 8462- 4 LOINC Systolic Blood Pressure 152 mm[Hg] 05/16/2022 13:27 Initial 8480- 6 LOINC Diastolic Blood Pressure 90 mm[Hg] 05/16/2022 13:27 Initial 8462- 4 [facility] Body Surface Area 1.94 m2 05/16/2022 13:27 Initial 3140- 1 LOINC Height 152.400 0 cm 60.00 in 05/16/2022 13:27 Initial 8302- 2 INC O2 Saturation 98 % 2022 21:15 Most Recent 01226 -5 [facility] O2 Saturation 99 % 2022 13:27 Initial 15770 -5 INC Pulse 83.0 /min 05/16/2022 21:15 Most Recent 8867- 4 INC Pulse 120.0 /min 05/16/2022 13:27 Initial 8867- 4 LOINC Respiration 15 /min 05/16/19 21:15 Most Recent 9279- 1 LOINC Respiration 20 /min 05/16/19 13:27 Initial 9279- 1 [facility] Temperature 36.0 Jazmine 96.8 F 05/16/19 13:27 Initial 8310- 5 [facility] Weight 89.36 kg 197.00 lbs 05/16/2022 13:27 Initial 35440 -7 [facility] Medications Medication Start Date End Date Route Frequency Dose Code Code System Medication Instructions Home Meds Zithromax 250MG Oral Tablet 04/17/2022 01/25/2023 ORAL DAILY 1 TABLET 853245 RxNorm TAKE 1 TABLET ORAL DAILY predniSONE 20MG Oral Tablet 04/17/2022 01/07/2023 ORAL DAILY 2 TABLET 433301 RxNorm TAKE 2 TABLET ORAL DAILY Percocet 5MG-325MG Oral Tablet 01/07/2023 06/23/2023 ORAL NEEDED EVERY 4 HOURS 1 TABLET 1006344 RxNorm TAKE 1 TABLET ORAL NEEDED EVERY 4 HOURS predniSONE 20MG Oral Tablet 01/07/2023 01/07/2023 ORAL DAILY 2 TABLET 922376 RxNorm TAKE 2 TABLET ORAL DAILY predniSONE 20MG Oral Tablet 01/07/2023 06/23/2023 ORAL DAILY 2 TABLET 943890 RxNorm TAKE 2 TABLET ORAL DAILY Vraylar 6MG Oral Capsule 06/23/2023 11/11/2023 ORAL DAILY 6 MILLIGRAMS 1341272 RxNorm TAKE 6 MILLIGRAM S ORAL DAILY LaMICtal 150MG Oral Tablet 06/23/2023 11/11/2023 ORAL DAILY 1 TABLET RxNorm TAKE 1 TABLET ORAL DAILY HumaLOG 100U/1ML Injection Solution 06/23/2023 Unknown INJECTIO N DAILY 1 unit(s) 377107 RxNorm 1 EACH INJECTION DAILY Ondansetron 4MG Oral Tablet 06/23/2023 01/31/2024 ORAL NEEDED EVERY 6 HOURS 4 MILLIGRAMS 548518 RxNorm TAKE 4 MILLIGRAM S ORAL NEEDED EVERY 6 HOURS SEROquel 100MG Oral Tablet 06/23/2023 11/11/2023 ORAL BEDTIME 150 MILLIGRAMS 285927 RxNorm TAKE 150 MILLIGRAM S ORAL BEDTIME [...] Status Code Code System SLURRED SPEECH active 264546647 SNOME D-CT DIABETES 2 active 79971850 SNOMED-CT BIPOLAR DISORDER active 39571706 SNO MED-CT PTSD 09/19/2021 resolved 88413526 SNOMED-CT FIBROMYALGIA 09/19/2021 resolved 473901091 SNOMED -CT DIABETES 2 07/05/2021 resolved 85190554 SNOMED-C T FALL FROM STAIRS 06/23/2023 resolved 179820037 SN OMED-CT CLOSED FRACTURE OF RIGHT HUMERUS 06/23/2023 resolved 11879583450540296 SNOMED-CT HTN 09/19/2021 resolved 95305210 SNOMED-CT BIPOLAR DISORDER 09/19/2021 resolved 82350001 SN OMED-CT Allergies and Adverse Reactions Allergy Substance Reaction Severity Start Date Concern Status Co de Code System LISINOPRIL Active 12844 RxNorm AMBIEN Altered Mental Status (SNOMED-CT: 613242382) Active 926230 RxNorm Plan of Treatment Lab Draw 07/30/2020 Lab Draw 05/28/2020 US ABDOMEN LIMITED 1 ORGAN 05/06/2023 US RIGHT UPPER QUAD 07/05/2021 Encounters Encounter Diagnosis Start Date Code Code Sys tem Nausea with vomiting, unspecified 05/16/2022 SNOMED-CT Personal Care Team Section Performer Name Performer Role Active Date Inactive Da te
--- OUTSIDE RECORDS SUMMARY | 2024-02-17 18:32 | XMS_ITS ---
Author Organization Unknown Address [address] [place] [phone] Phone Care Team Providers Care Chief Fundraising Officer Name Role Phone MARIE JORGE Registered Nurse Unavailable MONICA Anthony Attending Unavailable JES DELAROSA Primary Unavailable UNLISTED PROVIDER - REQUESTED Xhandoff Un available Results XR CHEST PORTABLE OR 1V - Co mpleted: 04/17/2022 07:26 LOINC: [place], [place] [address] PACS SCIENCE INSTRUCTOR REPORT Patient Name: HILDA CROWLEY MRN: Sex: : Age: [id number] F 1975 46 Account: Accession: Admit: StayType: [id number] 04/17/2022 E/R Ordered: Order ID: Submitted: Ordering Provider: 04/17/2022 07:21 [id number] JOSSE SUÁREZ Completed: Technologist: Resulted: 04/17/2022 07:26 [...] em Smoking History Current every day smoker 282362865 SNOMED CT Sex Female Vital Signs Vital Sign Value Unit [place] Value [place] Unit Date/Time Recent/Initial? Code Code System Body Mass Index 39.06 kg/m2 04/17/2022 07:18 Initial 29833 -5 LOINC Systolic Blood Pressure 175 mm[Hg] [...] Saturation 98 % 2021 07:58 Most Recent 35166 -5 LOINC O2 Saturation 97 % 2021 07:18 Initial 56465 -5 LOINC Pulse 120.0 /min 04/17/2022 07:58 Most Recent 8867- 4 LOINC Pulse 112.0 /min 04/17/2022 07:18 Initial 8867- 4 LOINC Respiration 16 /min 04/17/20 07:58 Most Recent 9279- 1 LOINC Respiration 20 /min 04/17/20 07:18 Initial 9279- 1 LOINC Temperature 36.2 Jazmine 97.2 F 04/17/20 07:18 Initial 8310- 5 LOINC Weight 90.72 kg 200.00 lbs 04/17/2022 07:18 Initial 41704 -7 LOINC Medications Medication Start Date End Date Route Frequency Dose Code Code System Medication Instructions Home Meds Zithromax 250MG Oral Tablet 04/17/2022 01/25/2023 ORAL DAILY 1 TABLET 089704 RxNorm TAKE 1 TABLET ORAL DAILY predniSONE 20MG Oral Tablet 04/17/2022 01/07/2023 ORAL DAILY 2 TABLET 392985 RxNorm TAKE 2 TABLET ORAL DAILY Percocet 5MG-325MG Oral Tablet 01/07/2023 06/23/2023 ORAL NEEDED EVERY 4 HOURS 1 TABLET 3109086 RxNorm TAKE 1 TABLET ORAL NEEDED EVERY 4 HOURS predniSONE 20MG Oral Tablet 01/07/2023 01/07/2023 ORAL DAILY 2 TABLET 661096 RxNorm TAKE 2 TABLET ORAL DAILY predniSONE 20MG Oral Tablet 01/07/2023 06/23/2023 ORAL DAILY 2 TABLET 170034 RxNorm TAKE 2 TABLET ORAL DAILY Vraylar 6MG Oral Capsule 06/23/2023 11/11/2023 ORAL DAILY 6 MILLIGRAMS 1448414 RxNorm TAKE 6 MILLIGRAM S ORAL DAILY LaMICtal 150MG Oral Tablet 06/23/2023 11/11/2023 ORAL DAILY 1 TABLET RxNorm TAKE 1 TABLET ORAL DAILY HumaLOG 100U/1ML Injection Solution 06/23/2023 Unknown INJECTIO N DAILY 1 unit(s) 627327 RxNorm 1 EACH INJECTION DAILY Ondansetron 4MG Oral Tablet 06/23/2023 01/31/2024 ORAL NEEDED EVERY 6 HOURS 4 MILLIGRAMS 549101 RxNorm TAKE 4 MILLIGRAM S ORAL NEEDED EVERY 6 HOURS SEROquel 100MG Oral Tablet 06/23/2023 11/11/2023 ORAL BEDTIME 150 MILLIGRAMS 624453 RxNorm TAKE 150 MILLIGRAM S ORAL BEDTIME [...] Status Code Code System SLURRED SPEECH active 113193478 SNOME D-CT DIABETES 2 active 29574676 SNOMED-CT BIPOLAR DISORDER active 34566009 SNO MED-CT PTSD 09/19/2021 resolved 21600241 SNOMED-CT FIBROMYALGIA 09/19/2021 resolved 672911701 SNOMED -CT DIABETES 2 07/05/2021 resolved 19683831 SNOMED-C T FALL FROM STAIRS 06/23/2023 resolved 192365630 SN OMED-CT CLOSED FRACTURE OF RIGHT HUMERUS 06/23/2023 resolved 74114834636518208 SNOMED-CT HTN 09/19/2021 resolved 72093322 SNOMED-CT BIPOLAR DISORDER 09/19/2021 resolved 70246708 SN OMED-CT Allergies and Adverse Reactions Allergy Substance Reaction Severity Start Date Concern Status Co de Code System LISINOPRIL Active 97365 RxNorm AMBIEN Altered Mental Status (SNOMED-CT: 371107021) Active 456949 RxNorm Plan of Treatment Lab Draw 07/30/2020 [...]
--- OUTSIDE RECORDS SUMMARY | 2024-02-17 18:32 | XMS_ITS ---
Author Organization Unknown Address [address] [place] [address] [phone] Phone Care Team Providers Care Refrigeration Insulator Name Role Phone NIKOLAI Martinez Attending Unavailable JES DELAROSA Primary Unavailable Social History Type Status Start Date End Date Code Code Syst em Smoking History Current every day smoker 742714857 SNOMED CT Sex Female Medications Medication Start Date End Date Route Frequency Dose Code Code System Medication Instructions Home Meds Zithromax 250MG Oral Tablet 04/17/2022 01/25/2023 ORAL DAILY 1 TABLET 152920 RxNorm TAKE 1 TABLET ORAL DAILY predniSONE 20MG Oral Tablet 04/17/2022 01/07/2023 ORAL DAILY 2 TABLET 321547 RxNorm TAKE 2 TABLET ORAL DAILY Percocet 5MG-325MG Oral Tablet 01/07/2023 06/23/2023 ORAL NEEDED EVERY 4 HOURS 1 TABLET 8107157 RxNorm TAKE 1 TABLET ORAL NEEDED EVERY 4 HOURS predniSONE 20MG Oral Tablet 01/07/2023 01/07/2023 ORAL DAILY 2 TABLET 195920 RxNorm TAKE 2 TABLET ORAL DAILY predniSONE 20MG Oral Tablet 01/07/2023 06/23/2023 ORAL DAILY 2 TABLET 885171 RxNorm TAKE 2 TABLET ORAL DAILY Vraylar 6MG Oral Capsule 06/23/2023 11/11/2023 ORAL DAILY 6 MILLIGRAMS 9420351 RxNorm TAKE 6 MILLIGRAM S ORAL DAILY LaMICtal 150MG Oral Tablet 06/23/2023 11/11/2023 ORAL DAILY 1 TABLET RxNorm TAKE 1 TABLET ORAL DAILY HumaLOG 100U/1ML Injection Solution 06/23/2023 Unknown INJECTIO N DAILY 1 unit(s) 972796 RxNorm 1 EACH INJECTION DAILY Ondansetron 4MG Oral Tablet 06/23/2023 01/31/2024 ORAL NEEDED EVERY 6 HOURS 4 MILLIGRAMS 386072 RxNorm TAKE 4 MILLIGRAM S ORAL NEEDED EVERY 6 HOURS SEROquel 100MG Oral Tablet 06/23/2023 11/11/2023 ORAL BEDTIME 150 MILLIGRAMS 944576 RxNorm TAKE 150 MILLIGRAM S ORAL BEDTIME Spironolacton e 100MG Oral Tablet 06/23/2023 Unknown ORAL DAILY 100 MILLIGRAMS 735748 RxNorm TAKE 100 MILLIGRAM S ORAL DAILY [...] Status Code Code System SLURRED SPEECH active 706903869 SNOME D-CT DIABETES 2 active 82266356 SNOMED-CT BIPOLAR DISORDER active 06679287 SNO MED-CT PTSD 09/19/2021 resolved 42377395 SNOMED-CT FIBROMYALGIA 09/19/2021 resolved 168269493 SNOMED -CT DIABETES 2 07/05/2021 resolved 77208497 SNOMED-C T FALL FROM STAIRS 06/23/2023 resolved 610389256 SN OMED-CT CLOSED FRACTURE OF RIGHT HUMERUS 06/23/2023 resolved 19188559680354542 SNOMED-CT HTN 09/19/2021 resolved 21888373 SNOMED-CT BIPOLAR DISORDER 09/19/2021 resolved 39893211 SN OMED-CT Allergies and Adverse Reactions Allergy Substance Reaction Severity Start Date Concern Status Co de Code System LISINOPRIL Active 64917 RxNorm AMBIEN Altered Mental Status (SNOMED-CT: 955559185) Active 131156 RxNorm Plan of Treatment Lab Draw 07/30/2020 Lab Draw 05/28/2020 US ABDOMEN LIMITED 1 ORGAN 05/06/2023 US RIGHT UPPER QUAD 07/05/2021 Encounters Encounter Diagnosis Start Date Code Code Sys tem Tachycardia 03/12/2022 4286189 SNOMED-CT Personal Care Team Section Performer Name Performer Role Active Date Inactive Da te
--- OUTSIDE RECORDS SUMMARY | 2024-02-17 18:33 | XMS_ITS ---
Author Organization Unknown Address [address] [place] [phone] Phone Care Team Providers Care Naval Gunfire Liaison Officer Name Role Phone OPAL MENSAH Registered Nurse Unavailable PANCHITO PETTIT Attending Unavailable BEBE QUESADA Unavailable YELITZA ATIYA Primary Unavailable UNLISTED PROVIDER - REQUESTED Xhandoff Un available Results LACTIC ACID - Collect Date/T eber: 11/30/2022 21:20 [facility] ID: [id number] [address] [place] [address], [address] LOINC: Test Value Unit Reference Range Code Code System Flag LACTIC ACID 1.8 mmol/L L=0.7 H=2.1 84462-9 LOINC COMPREHENSIVE METABOLIC PANE L (CMP) - Collect Date/Time: 11/30/2022 21:20 [facility] ID: [id number] [address] [place] [address], [address] LOINC: 06116-5 Test Value Unit Reference Range Code Code [...] H=34 2028-9 LOINC ANION GAP 12.2 mmol/L 07114-0 LOINC CALCIUM SERUM 9.8 mg/dL L=8.2 H=10.2 44049-9 LOINC BILIRUBIN TOTAL 0.9 mg/dL L=0.0 H=1.3 1975-2 LOINC ALK. PHOS. 100 U/L L=46 H=116 6768-6 LOINC SGOT (AST) 22 U/L L=15 H=37 1920-8 LOINC SGPT (ALT) 32 U/L L=12 H=78 1742-6 LOINC TOTAL PROTEIN 8.0 gm/dL L=6.0 H=8.0 2885-2 LOINC ALBUMIN 3.9 gm/dL L=3.4 H=5.0 1751-7 LOINC AGE 47 years eGFR (non-Afr.Amer.) 88 mL/min 87362-4 LOINC eGFR (Afr-Djiboutian) 106 mL/min 72700-2 LOINC CBC W/ DIFFERENTIAL* - Colle ct Date/Time: 11/30/2022 21:20 [facility] ID: [id number] [address] [place] [address], [address] LOINC: 45626-5 Test Value Unit Reference Range Code Code System Flag WBC 14.68 th/cmm L=5.00 H=10.00 6690-2 LOINC H NEUT % 56.1 % L=40.0 H=80.0 LYMPH % 35.5 % L=10.0 H=50.0 MONO % 6.5 % L=2.0 H=12.0 59557-9 LOINC EOS % 0.7 % L=0.0 H=8.0 BASO % 0.5 % L=0.0 H=3.0 IG % 0.7 % L=0.0 H=1.1 2514-8 LOINC NRBC % 0.0 % L=0.0 H=0.0 02155-9 LOINC NEUT abs count 8.2 th/cmm L=1.6 H=8.4 751-8 LOINC LYMPH abs count 5.2 th/cmm L=1.5 H=4.0 731-0 LOINC H MONO abs count 1.0 th/cmm L=0.2 H=1.0 742-7 LOINC EOS abs count 0.1 th/cmm L=0.0 H=0.5 711-2 LOINC BASO abs count 0.1 th/cmm L=0.0 H=0.2 704-7 LOINC IG abs count 0.1 th/cmm L=0.0 H=0.1 96048-1 LOINC NRBC abs count 0.0 mil/cmm L=0.0 H=0.0 58667-0 LOINC RBC 5.20 mil/cmm L=3.90 H=5.40 789-8 [...] QUAL (URINE) - Collect Date/Time: 11/30/2022 20:00 [facility] ID: [id number] [address] [place] [address], [address] LOINC: 6-3 Test Value Unit Reference Range Code Code System Flag TEST NEGATIVE 2105-3 LOINC URINALYSIS WITH REFLEX CULT IF POSITIVE* - Collect Date/Time: 11/30/2022 20:00 [facility] ID: [id number] [address] [place] [address], [address] LOINC: 19875-4 Test Value Unit Reference Range Code Code System Flag COLLECTION MODE: CLEAN CATCH 69414-5 LOINC Color STRAW yellow 5778-6 LOINC Appearance CLEAR clear 5767-9 LOINC Glucose urine NEGATIVE negative mg/dl 81490-5 LOINC Bilirubin NEGATIVE negative 5770-3 LOINC Ketones NEGATIVE negative mg/dl 2514-8 LOINC Spec gravity <=1.005 1.003 - 1.030 5811-5 LOINC pH urine 7.0 5.0 - 7.0 2756-5 LOINC Protein NEGATIVE negative mg/dl 48636-7 LOINC Urobilinogen 0.2 <or= 1 EU/dl 73934-3 LOINC Nitrite. NEGATIVE negative 5802-4 LOINC Blood NEGATIVE negative 5794-3 LOINC Leukocytes. NEGATIVE negative MICROSCOPIC NOT INDICAT CT ABD PELVIS W IV CONTRAST ONLY - Completed: 12/01/2022 07:04 LOINC: [facility] [place], [place] [address] PACS GYMNASTICS COACH REPORT Patient Name: HILDA CROWLEY MRN: Sex: : Age: [id number] F 1975 47 Account: Accession: Admit: StayType: [id number] 11/30/2022 E/R Ordered: Order ID: Submitted: Ordering Provider: 11/30/2022 21:35 [id number] KRISSY OLIVER Completed: Technologist: Resulted: 12/01/2022 07:04 [facility] 12/02/2022 15:36 Study Description: CT ABD PELVIS [...] em Smoking History Current every day smoker 508836274 SNOMED CT Sex Female Vital Signs Vital Sign Value Unit Josephine Value Josephine Unit Date/Time Recent/Initial? Code Code System Body Mass Index 37.30 kg/m2 11/30/2022 18:46 Initial 21938 -5 LOINC Systolic Blood Pressure 124 mm[Hg] [...] Saturation 96 % 2022 00:13 Most Recent 00148 -5 LOINC O2 Saturation 96 % 2022 18:46 Initial 05611 -5 LOINC Pulse 98.0 /min 12/01/2022 00:13 Most Recent 8867- 4 LOINC Pulse 113.0 /min 11/30/2022 18:46 Initial 8867- 4 LOINC Respiration 18 /min 12/02/19 00:13 Most Recent 9279- 1 LOINC Respiration 18 /min 12/01/19 18:46 Initial 9279- 1 LOINC Temperature 37.2 Jazmine 99.0 F 12/01/19 18:46 Initial 8310- 5 LOINC Weight 86.64 kg 191.00 lbs 11/30/2022 18:46 Initial 73662 -7 [facility] Medications Medication Start Date End Date Route Frequency Dose Code Code System Medication Instructions Home Meds Zithromax 250MG Oral Tablet 04/17/2022 01/25/2023 ORAL DAILY 1 TABLET 088009 RxNorm TAKE 1 TABLET ORAL DAILY predniSONE 20MG Oral Tablet 04/17/2022 01/07/2023 ORAL DAILY 2 TABLET 615765 RxNorm TAKE 2 TABLET ORAL DAILY Percocet 5MG-325MG Oral Tablet 01/07/2023 06/23/2023 ORAL NEEDED EVERY 4 HOURS 1 TABLET 6779802 RxNorm TAKE 1 TABLET ORAL NEEDED EVERY 4 HOURS predniSONE 20MG Oral Tablet 01/07/2023 01/07/2023 ORAL DAILY 2 TABLET 680709 RxNorm TAKE 2 TABLET ORAL DAILY predniSONE 20MG Oral Tablet 01/07/2023 06/23/2023 ORAL DAILY 2 TABLET 797601 RxNorm TAKE 2 TABLET ORAL DAILY Vraylar 6MG Oral Capsule 06/23/2023 11/11/2023 ORAL DAILY 6 MILLIGRAMS 1642685 RxNorm TAKE 6 MILLIGRAM S ORAL DAILY LaMICtal 150MG Oral Tablet 06/23/2023 11/11/2023 ORAL DAILY 1 TABLET RxNorm TAKE 1 TABLET ORAL DAILY HumaLOG 100U/1ML Injection Solution 06/23/2023 Unknown INJECTIO N DAILY 1 unit(s) 445051 RxNorm 1 EACH INJECTION DAILY Ondansetron 4MG Oral Tablet 06/23/2023 01/31/2024 ORAL NEEDED EVERY 6 HOURS 4 MILLIGRAMS 029313 RxNorm TAKE 4 MILLIGRAM S ORAL NEEDED EVERY 6 HOURS SEROquel 100MG Oral Tablet 06/23/2023 11/11/2023 ORAL BEDTIME 150 MILLIGRAMS 005068 RxNorm TAKE 150 MILLIGRAM S ORAL BEDTIME Spironolacton e 100MG Oral Tablet 06/23/2023 Unknown ORAL DAILY 100 MILLIGRAMS 053986 RxNorm TAKE 100 MILLIGRAM S ORAL DAILY [...] Status Code Code System SLURRED SPEECH active 230523948 SNOME D-CT DIABETES 2 active 45365167 SNOMED-CT BIPOLAR DISORDER active 83343491 SNO MED-CT PTSD 09/19/2021 resolved 59826054 SNOMED-CT FIBROMYALGIA 09/19/2021 resolved 180536469 SNOMED -CT DIABETES 2 07/05/2021 resolved 77598544 SNOMED-C T FALL FROM STAIRS 06/23/2023 resolved [id number] SN OMED-CT CLOSED FRACTURE OF RIGHT HUMERUS 06/23/2023 resolved [id number] SNOMED-CT HTN 09/19/2021 resolved 25575020 SNOMED-CT BIPOLAR DISORDER 09/19/2021 resolved 27302404 SN OMED-CT Allergies and Adverse Reactions Allergy Substance Reaction Severity Start Date Concern Status Co de Code System LISINOPRIL Active 54273 RxNorm AMBIEN Altered Mental Status (SNOMED-CT: 862323547) Active 230723 RxNorm Plan of Treatment Lab Draw 07/30/2020 Lab Draw 05/28/2020 US ABDOMEN LIMITED 1 ORGAN 05/06/2023 US RIGHT UPPER QUAD 07/05/2021 Encounters Encounter Diagnosis Start Date Code Code Sys tem Unspecified abdominal hernia without obstruction or gangrene 11/30/2022 SNOMED-CT Personal Care Team Section Performer Name Performer Role Active Date Inactive Da te
--- OUTSIDE RECORDS SUMMARY | 2024-02-17 18:33 | XMS_ITS ---
Author Organization Unknown Address [address] [place] [address] [phone] Phone Care Team Providers Care Cartographic Technician Name Role Phone LUIS ALBERTO NEAL Registered Nurse Unavailable ANN Kay Attending Unavailable YELITZA RAJPUT Primary Unavailable UNLISTED PROVIDER - REQUESTED Xhandoff Un available Results XR LS SPINE 2V OR 3V - Compl eted: 01/07/2023 10:09 LOINC: [place], [place] [address] PACS EMPLOYMENT LEGAL ASSISTANT REPORT Patient Name: HILDA CROWLEY MRN: Sex: : Age: [id number] F 1975 47 Account: Accession: Admit: StayType: [id number] 01/07/2023 E/R Ordered: Order ID: Submitted: Ordering Provider: 01/07/2023 09:53 [id number] [facility] MICHAEL JUAREZ Completed: Technologist: Resulted: 01/07/2023 10:09 [...] em Smoking History Current every day smoker [id number] SNOMED CT Sex Female Vital Signs Vital Sign Value Unit Deputy Value Deputy Unit Date/Time Recent/Initial? Code Code System Body Mass Index 35.15 kg/m2 01/07/2023 09:02 Initial 47101 -5 [facility] Systolic Blood Pressure 139 mm[Hg] 01/07/2023 09:02 Initial 8480- 6 [facility] Diastolic Blood Pressure 92 mm[Hg] 01/07/2023 09:02 Initial 8462- 4 [facility] Body Surface Area 1.86 m2 01/07/2023 09:02 Initial 3140- 1 [facility] Height 152.400 0 cm 60.00 in 01/07/2023 09:02 Initial 8302- 2 [facility] O2 Saturation 96 % 2022 09:02 Initial 16351 -5 [facility] Pulse 111.0 /min 01/07/2023 09:02 Initial 8867- 4 [facility] Respiration 22 /min 01/08/20 23 09:02 Initial 9279- 1 [facility] Temperature 36.8 Jazmine 98.2 F 01/08/20 23 09:02 Initial 8310- 5 [facility] Weight 81.65 kg 180.00 lbs 01/07/2023 09:02 Initial 79246 -7 [facility] Medications Medication Start Date End Date Route Frequency Dose Code Code System Medication Instructions Home Meds Zithromax 250MG Oral Tablet 04/17/2022 01/25/2023 ORAL DAILY 1 TABLET 055237 RxNorm TAKE 1 TABLET ORAL DAILY predniSONE 20MG Oral Tablet 04/17/2022 01/07/2023 ORAL DAILY 2 TABLET 610308 RxNorm TAKE 2 TABLET ORAL DAILY Percocet 5MG-325MG Oral Tablet 01/07/2023 06/23/2023 ORAL NEEDED EVERY 4 HOURS 1 TABLET 2967418 RxNorm TAKE 1 TABLET ORAL NEEDED EVERY 4 HOURS predniSONE 20MG Oral Tablet 01/07/2023 01/07/2023 ORAL DAILY 2 TABLET 909690 RxNorm TAKE 2 TABLET ORAL DAILY predniSONE 20MG Oral Tablet 01/07/2023 06/23/2023 ORAL DAILY 2 TABLET 593015 RxNorm TAKE 2 TABLET ORAL DAILY Vraylar 6MG Oral Capsule 06/23/2023 11/11/2023 ORAL DAILY 6 MILLIGRAMS 7177353 RxNorm TAKE 6 MILLIGRAM S ORAL DAILY LaMICtal 150MG Oral Tablet 06/23/2023 11/11/2023 ORAL DAILY 1 TABLET RxNorm TAKE 1 TABLET ORAL DAILY HumaLOG 100U/1ML Injection Solution 06/23/2023 Unknown INJECTIO N DAILY 1 unit(s) 294735 RxNorm 1 EACH INJECTION DAILY Ondansetron 4MG Oral Tablet 06/23/2023 01/31/2024 ORAL NEEDED EVERY 6 HOURS 4 MILLIGRAMS 724691 RxNorm TAKE 4 MILLIGRAM S ORAL NEEDED EVERY 6 HOURS SEROquel 100MG Oral Tablet 06/23/2023 11/11/2023 ORAL BEDTIME 150 MILLIGRAMS 936746 RxNorm TAKE 150 MILLIGRAM S ORAL BEDTIME [...] Status Code Code System SLURRED SPEECH active 287847209 SNOME D-CT DIABETES 2 active 36527747 SNOMED-CT BIPOLAR DISORDER active 62532653 SNO MED-CT PTSD 09/19/2021 resolved 49766890 SNOMED-CT FIBROMYALGIA 09/19/2021 resolved 460210865 SNOMED -CT DIABETES 2 07/05/2021 resolved 51934817 SNOMED-C T FALL FROM STAIRS 06/23/2023 resolved 076280982 SN OMED-CT CLOSED FRACTURE OF RIGHT HUMERUS 06/23/2023 resolved 46662115663570527 SNOMED-CT HTN 09/19/2021 resolved 14274496 SNOMED-CT BIPOLAR DISORDER 09/19/2021 resolved 52346416 SN OMED-CT Allergies and Adverse Reactions Allergy Substance Reaction Severity Start Date Concern Status Co de Code System LISINOPRIL Active 51723 RxNorm AMBIEN Altered Mental Status (SNOMED-CT: 969753122) Active 119721 RxNorm Plan of Treatment Lab Draw 07/30/2020 Lab Draw 05/28/2020 US ABDOMEN LIMITED 1 ORGAN 05/06/2023 US RIGHT UPPER QUAD 07/05/2021 Encounters Encounter Diagnosis Start Date Code Code Sys tem Lumbago with sciatica 01/07/2023776626377 SNOMED -CT Personal Care Team Section Performer Name Performer Role Active Date Inactive Da te
--- OUTSIDE RECORDS SUMMARY | 2024-02-17 18:34 | XMS_ITS ---
Author Organization Unknown Address [address] [place] [address] [phone] Phone Care Team Providers Care Chief Lock Operator Name Role Phone ELIZABETH Adhikari Attending Unavailable Social History Type Status Start Date End Date Code Code Syst em Smoking History Current every day smoker 248206269 SNOMED CT Sex Female Medications Medication Start Date End Date Route Frequency Dose Code Code System Medication Instructions Home Meds predniSONE 20MG Oral Tablet 01/07/2023 06/23/2023 ORAL DAILY 2 TABLET 018001 RxNorm TAKE 2 TABLET ORAL DAILY Percocet 5MG-325MG Oral Tablet 01/07/2023 06/23/2023 ORAL NEEDED EVERY 4 HOURS 1 TABLET 0447660 RxNorm TAKE 1 TABLET ORAL NEEDED EVERY 4 HOURS Ondansetron 4MG Oral Tablet 06/23/2023 01/31/2024 ORAL NEEDED EVERY 6 HOURS 4 MILLIGRAM S 893517 RxNorm TAKE 4 MILLIGRAM S ORAL NEEDED EVERY 6 HOURS SEROquel 100MG Oral Tablet 06/23/2023 11/11/2023 ORAL BEDTIME 150 MILLIGRAM S 050140 RxNorm TAKE 150 MILLIGRAM S ORAL BEDTIME Spironolactone 100MG Oral Tablet 06/23/2023 Unknown ORAL DAILY 100 MILLIGRAM S 526157 RxNorm TAKE 100 MILLIGRAM S ORAL DAILY Vraylar 6MG Oral Capsule 06/23/2023 11/11/2023 ORAL DAILY 6 MILLIGRAM S 7856185 RxNorm TAKE 6 MILLIGRAM S ORAL DAILY LaMICtal 150MG Oral Tablet 06/23/2023 11/11/2023 ORAL DAILY 1 TABLET RxNorm TAKE 1 TABLET ORAL DAILY HumaLOG 100U/1ML Injection Solution 06/23/2023 Unknown INJECTIO N DAILY 1 unit(s) 912546 RxNorm 1 EACH INJECTION DAILY Augustin 06/23/2023 [...] Status Code Code System SLURRED SPEECH active 046131709 SNOME D-CT DIABETES 2 active 92521676 SNOMED-CT BIPOLAR DISORDER active 95103024 SNO MED-CT PTSD 09/19/2021 resolved 49378776 SNOMED-CT FIBROMYALGIA 09/19/2021 resolved 027964070 SNOMED -CT DIABETES 2 07/05/2021 resolved 57767859 SNOMED-C T FALL FROM STAIRS 06/23/2023 resolved 334793020 SN OMED-CT CLOSED FRACTURE OF RIGHT HUMERUS 06/23/2023 resolved 70146515097390943 SNOMED-CT HTN 09/19/2021 resolved 72263753 SNOMED-CT BIPOLAR DISORDER 09/19/2021 resolved 56038875 SN OMED-CT Allergies and Adverse Reactions Allergy Substance Reaction Severity Start Date Concern Status Co de Code System LISINOPRIL Active 02815 RxNorm AMBIEN Altered Mental Status (SNOMED-CT: 890866670) Active 805251 RxNorm Plan of Treatment Lab Draw 07/30/2020 Lab Draw 05/28/2020 US ABDOMEN LIMITED 1 ORGAN 05/06/2023 US RIGHT UPPER QUAD 07/05/2021 Encounters Encounter Diagnosis Start Date Code Code Sys tem Slurred speech 06/22/2023 SNOMED-CT Personal Care Team Section Performer Name Performer Role Active Date Inactive Da te
--- OUTSIDE RECORDS SUMMARY | 2024-02-17 18:34 | XMS_ITS ---
Author Organization Unknown Address [address] [place] [address] [phone] Phone Care Team Providers Care Molecular Modeler Name Role Phone HENOK MARIE Ty Attending Unavailable YELITZA RAJPUT Primary Unavailable Results XR HIP 2V OR 3V RT* - Comple katey: 04/18/2023 08:10 LOINC: [facility] [place], [place] [address] PACS BREASTFEEDING EDUCATOR REPORT Patient Name: HILDA CROWLEY MRN: Sex: : Age: [id number] F 1975 47 Account: Accession: Admit: StayType: [id number] 04/18/2023 O/P Ordered: Order ID: Submitted: Ordering Provider: 04/18/2023 07:53 [id number] JULIO GONZALEZ Completed: Technologist: Resulted: 04/18/2023 08:10 LIVIAP 04/18/2023 08:15 Study Description: XR HIP 2V OR 3V RT Study Reason: RT HIP INJURY TECHNIQUE: 2D digital imaging was performed. COMPARISON: Prior x-rays August 2021. FINDINGS: NUMBER OF VIEWS: 2 No evidence of pelvic nor hip fracture. No hip joint space narrowing. Additional lateral view of the right hip reveals no joint space narrowing nor osteophytes. IMPRESSION: No significant osseous findings in the pelvis and hips. No significant change compared to August 2021 Report Digitally Signed by Nitesh Gutierrez on 04/18/2023 08:15 AM EST Social History Type Status Start Date End Date Code Code Syst em Smoking History Current every day smoker 144113032 SNOMED CT Sex Female Medications Medication Start Date End Date Route Frequency Dose Code Code System Medication Instructions Home Meds predniSONE 20MG Oral Tablet 01/07/2023 06/23/2023 ORAL DAILY 2 TABLET 078385 RxNorm TAKE 2 TABLET ORAL DAILY Percocet 5MG-325MG Oral Tablet 01/07/2023 06/23/2023 ORAL NEEDED EVERY 4 HOURS 1 TABLET 3831113 RxNorm TAKE 1 TABLET ORAL NEEDED EVERY 4 HOURS Ondansetron 4MG Oral Tablet 06/23/2023 01/31/2024 ORAL NEEDED EVERY 6 HOURS 4 MILLIGRAM S 349402 RxNorm TAKE 4 MILLIGRAM S ORAL NEEDED EVERY 6 HOURS SEROquel 100MG Oral Tablet 06/23/2023 11/11/2023 ORAL BEDTIME 150 MILLIGRAM S 428129 RxNorm TAKE 150 MILLIGRAM S ORAL BEDTIME Spironolactone 100MG Oral Tablet 06/23/2023 Unknown ORAL DAILY 100 MILLIGRAM S 301411 RxNorm TAKE 100 MILLIGRAM S ORAL DAILY Vraylar 6MG Oral Capsule 06/23/2023 11/11/2023 ORAL DAILY 6 MILLIGRAM S 3755896 RxNorm TAKE 6 MILLIGRAM S ORAL DAILY LaMICtal 150MG Oral Tablet 06/23/2023 11/11/2023 ORAL DAILY 1 TABLET RxNorm TAKE 1 TABLET ORAL DAILY HumaLOG 100U/1ML Injection Solution 06/23/2023 Unknown INJECTIO N DAILY 1 unit(s) 738246 RxNorm 1 EACH INJECTION DAILY Mounjaro 06/23/2023 Unknown ORAL WEEKLY 15 MILLIGRAM S [...] Status Code Code System SLURRED SPEECH active 621409102 SNOME D-CT DIABETES 2 active 53057423 SNOMED-CT BIPOLAR DISORDER active 20916597 SNO MED-CT PTSD 09/19/2021 resolved 92281547 SNOMED-CT FIBROMYALGIA 09/19/2021 resolved 450437012 SNOMED -CT DIABETES 2 07/05/2021 resolved 49752544 SNOMED-C T FALL FROM STAIRS 06/23/2023 resolved 113494455 SN OMED-CT CLOSED FRACTURE OF RIGHT HUMERUS 06/23/2023 resolved 37389098148727289 SNOMED-CT HTN 09/19/2021 resolved 09992221 SNOMED-CT BIPOLAR DISORDER 09/19/2021 resolved 75956903 SN OMED-CT Allergies and Adverse Reactions Allergy Substance Reaction Severity Start Date Concern Status Co de Code System LISINOPRIL Active 62455 RxNorm AMBIEN Altered Mental Status (SNOMED-CT: 713916522) Active 307668 RxNorm Plan of Treatment Lab Draw 07/30/2020 Lab Draw 05/28/2020 US ABDOMEN LIMITED 1 ORGAN 05/06/2023 US RIGHT UPPER QUAD 07/05/2021 Encounters Encounter Diagnosis Start Date Code Code Sys tem 04/18/2023 [id number] SNOMED-CT Personal Care Team Section Performer Name Performer Role Active Date Inactive Da te
--- OUTSIDE RECORDS SUMMARY | 2024-02-17 18:34 | XMS_ITS ---
Author Organization Unknown Address [address] [place] [address] [phone] Phone Care Team Providers Care Emr Analyst Name Role Phone JC GRAHAM Registered Nurse Unavailable SARA Kay Attending Unavailable YELITZA RAJPUT Primary Unavailable UNLISTED PROVIDER - REQUESTED Xhandoff Un available Results XR KNEE 4V LT* - Completed: 01/25/2023 19:06 LOINC: [place], [place] [address] PACS HANDHOLE MACHINE OPERATOR REPORT Patient Name: HILDA CROWLEY MRN: Sex: : Age: [id number] F 1975 47 Account: Accession: Admit: StayType: [id number] 01/25/2023 E/R Ordered: Order ID: Submitted: Ordering Provider: 01/25/2023 18:43 [id number] NADEEN POLO Completed: Technologist: Resulted: 01/25/2023 19:06 KM 01/25/2023 19:13 Study Description: XR KNEE 4V LT Study Reason: Trauma TECHNIQUE: 2D digital imaging was performed. COMPARISON: No exams were available for comparison FINDINGS: NUMBER OF VIEWS: 4 No evidence of acute fracture no joint effusion. No osteochondral defects. No degenerative changes. Bone density normal. No osseous lesions. IMPRESSION: No significant osseous findings in the left knee. Report Digitally Signed by Nitesh Gutierrez on 01/25/2023 07:13 PM EDT XR TIBFIB 2V LT* - Completed : 01/25/2023 19:06 [facility] [place], [place] [address] PACS HANDHOLE MACHINE OPERATOR REPORT Patient Name: HILDA CROWLEY MRN: Sex: : Age: [id number] F 1975 47 Account: Accession: Admit: StayType: [id number] 01/25/2023 E/R Ordered: Order ID: Submitted: Ordering Provider: 01/25/2023 18:43 [id number] NADENE POLO Completed: Technologist: Resulted: 01/25/2023 19:06 KM 01/25/2023 19:14 Study Description: XR TIBFIB 2V LT Study Reason: Trauma TECHNIQUE: 2D digital imaging was performed. COMPARISON: No exams were available for comparison FINDINGS: NUMBER OF VIEWS: 4 No evidence of fracture. Bone density normal. No radiopaque foreign body. No osseous lesions IMPRESSION: No significant osseous findings. Report Digitally Signed by Nitesh Gutierrez on 01/25/2023 07:14 PM EDT Social History Type Status Start Date End Date Code Code Syst em Smoking History Current every day smoker 393446662 SNOMED CT Sex Female Vital Signs Vital Sign Value Unit [place] Value [place] Unit Date/Time Recent/Initial? Code Code System Body Mass Index 33.40 kg/m2 01/25/2023 18:37 Initial 82987 -5 [facility] Systolic Blood Pressure 127 mm[Hg] 01/25/2023 18:37 Initial 8480- 6 [facility] Diastolic Blood Pressure 63 mm[Hg] 01/25/2023 18:37 Initial 8462- 4 [facility] Body Surface Area 1.81 m2 01/25/2023 18:37 Initial 3140- 1 [facility] Height 152.400 0 cm 60.00 in 01/25/2023 18:37 Initial 8302- 2 [facility] O2 Saturation 99 % 2022 18:37 Initial 31044 -5 [facility] Pulse 110.0 /min 01/25/2023 18:37 Initial 8867- 4 [facility] Respiration 18 /min 01/26/20 18:37 Initial 9279- 1 [facility] Temperature 36.2 Jazmine 97.2 F 01/26/20 18:37 Initial 8310- 5 [facility] Weight 77.56 kg 171.00 lbs 01/25/2023 18:37 Initial 31078 -7 [facility] Medications Medication Start Date End Date Route Frequency Dose Code Code System Medication Instructions Home Meds Zithromax 250MG Oral Tablet 04/17/2022 01/25/2023 ORAL DAILY 1 TABLET 918386 RxNorm TAKE 1 TABLET ORAL DAILY Percocet 5MG-325MG Oral Tablet 01/07/2023 06/23/2023 ORAL NEEDED EVERY 4 HOURS 1 TABLET 8759429 RxNorm TAKE 1 TABLET ORAL NEEDED EVERY 4 HOURS predniSONE 20MG Oral Tablet 01/07/2023 06/23/2023 ORAL DAILY 2 TABLET 466509 RxNorm TAKE 2 TABLET ORAL DAILY SEROquel 100MG Oral Tablet 06/23/2023 11/11/2023 ORAL BEDTIME 150 MILLIGRAMS 833784 RxNorm TAKE 150 MILLIGRAM S ORAL BEDTIME Spironolacton e 100MG Oral Tablet 06/23/2023 Unknown ORAL DAILY 100 MILLIGRAMS 835319 RxNorm TAKE 100 MILLIGRAM S ORAL DAILY Vraylar 6MG Oral Capsule 06/23/2023 11/11/2023 ORAL DAILY 6 MILLIGRAMS 6265593 RxNorm TAKE 6 MILLIGRAM S ORAL DAILY LaMICtal 150MG Oral Tablet 06/23/2023 11/11/2023 ORAL DAILY 1 TABLET RxNorm TAKE 1 TABLET ORAL DAILY HumaLOG 100U/1ML Injection Solution 06/23/2023 Unknown INJECTIO N DAILY 1 unit(s) 323104 RxNorm 1 EACH INJECTION DAILY Ondansetron 4MG Oral Tablet 06/23/2023 01/31/2024 ORAL NEEDED EVERY 6 HOURS 4 MILLIGRAMS 544676 RxNorm TAKE 4 MILLIGRAM S ORAL NEEDED EVERY 6 HOURS Mounjaro 06/23/2023 Unknown ORAL WEEKLY 15 MILLIGRAMS [...] Status Code Code System SLURRED SPEECH active 830117480 SNOME D-CT DIABETES 2 active 75379242 SNOMED-CT BIPOLAR DISORDER active 17713372 SNO MED-CT PTSD 09/19/2021 resolved 38133724 SNOMED-CT FIBROMYALGIA 09/19/2021 resolved 743736094 SNOMED -CT DIABETES 2 07/05/2021 resolved 01756107 SNOMED-C T FALL FROM STAIRS 06/23/2023 resolved 679585533 SN OMED-CT CLOSED FRACTURE OF RIGHT HUMERUS 06/23/2023 resolved 92662153929190556 SNOMED-CT HTN 09/19/2021 resolved 68089135 SNOMED-CT BIPOLAR DISORDER 09/19/2021 resolved 47413952 SN OMED-CT Allergies and Adverse Reactions Allergy Substance Reaction Severity Start Date Concern Status Co de Code System LISINOPRIL Active 79578 RxNorm AMBIEN Altered Mental Status (SNOMED-CT: 166789481) Active 815251 RxNorm Plan of Treatment Lab Draw 07/30/2020 Lab Draw 05/28/2020 US ABDOMEN LIMITED 1 ORGAN 05/06/2023 US RIGHT UPPER QUAD 07/05/2021 Encounters Encounter Diagnosis Start Date Code Code Sys tem Contusion of left lower leg 01/25/2023 [id number] 9101 SNOMED-CT Personal Care Team Section Performer Name Performer Role Active Date Inactive Da te
--- OUTSIDE RECORDS SUMMARY | 2024-02-17 18:34 | XMS_ITS ---
Author Organization Unknown Address [address] [place] [phone] Phone Care Team Providers Care Cook Mayonnaise Name Role Phone KALEIGH DOYLE Registered Nurse Unavailable Unavailable Xwatchlist Unavailable ELIZABETH Adhikari Attending Unavailable MALIA QUESADA Unavailable YELITZA ATIYA Primary Unavailable UNLISTED PROVIDER - REQUESTED Xhandoff Un available Results NOVA GLUCOSE FINGER HEEL CAP ILLARY - Collect Date/Time: 06/23/2023 07:49 [facility] ID: [id number] [address] [place], [place], [id number] LOINC: 18921-9 Test Value Unit Reference Range Code Code System Flag GLUCOSE CAP 134 mg/dL L=70 H=116 84312-6 LOINC H LAMOTRIGINE (LAMICTAL)* - Co llect Date/Time: 06/22/2023 21:27 [facility] ID: [id number] [address] [place], [place], [id number] LOINC: 6948-4 Test Value Unit Reference Range Code Code System Flag Lamotrigine, S 4.5 3.0-15.0 6948-4 LOINC DRUG SCN 13 PANEL (MEDTOX)* - Collect Date/Time: 06/22/2023 20:27 [facility] ID: [id number] [address] [place], [place], [id number] LOINC: 89529-6 Test Value Unit Reference Range Code Code System Flag CANNABINOIDS POSITIVE Cutoff = 50 ng/mL 64339-4 LOINC A PHENCYCLIDINE NEGATIVE Cutoff = 25 ng/mL 31815-8 LOINC COCAINE NEGATIVE Cutoff = 150 ng/mL 35149-5 LOINC METHAMPHETAMINES NEGATIVE Cutoff = 50 0 ng/mL 32756-8 LOINC OPIATES NEGATIVE Cutoff = 100 ng/mL 32389-5 LOINC AMPHETAMINES NEGATIVE Cutoff = 500 ng/mL 27752-8 LOINC BENZODIAZEPINES NEGATIVE Cutoff = 150 ng/mL 45547-2 LOINC TRICYCLIC ANTIDEP POSITIVE Cutoff = 3 00 ng/mL 3533-7 LOINC A METHADONE NEGATIVE Cutoff = 200 ng/mL 74736-5 LOINC BARBITURATES NEGATIVE Cutoff = 200 ng/mL 06623-9 LOINC OXYCODONE NEGATIVE Cutoff = 100 ng/mL 58658-1 LOINC BUPRENORPHINE NEGATIVE Cutoff = 10 mg/mL 3414-0 [facility] COVID FLU RSV GENEXPE RT - Collect Date/Time: 06/22/2023 20:27 [facility] ID: [id number] [address] [place], [place], [id number] LOINC: 90738-3 Test Value Unit Reference Range Code Code System Flag COVID NEGATIVE Normal: Negative 92583-6 LOINC INFLUENZA A DNA NEGATIVE Normal: Negative 78041-8 LOINC INFLUENZA B DNA NEGATIVE Normal: Negative 02499-0 LOINC RSV DNA NEGATIVE Normal: Negative 24721-9 LOINC URINALYSIS WITH REFLEX CULT IF POSITIVE* - Collect Date/Time: 06/22/2023 20:27 [facility] ID: [id number] [address] [place], [place], [address] LOINC: 11382-8 Test Value Unit Reference Range Code Code System Flag COLLECTION MODE: CLEAN CATCH 75122-2 LOINC Color YELLOW yellow 5778-6 LOINC Appearance CLEAR clear 5767-9 LOINC Glucose urine NEGATIVE negative mg/dl 05472-3 LOINC Bilirubin NEGATIVE negative 5770-3 LOINC Ketones NEGATIVE negative mg/dl 2514-8 LOINC Spec gravity <=1.005 1.003 - 1.030 5811-5 LOINC pH urine 5.5 5.0 - 7.0 2756-5 LOINC Protein NEGATIVE negative mg/dl 00850-1 LOINC Urobilinogen 0.2 <or= 1 EU/dl 66271-2 LOINC Nitrite. NEGATIVE negative 5802-4 LOINC Blood NEGATIVE negative 5794-3 LOINC Leukocytes. NEGATIVE negative MICROSCOPIC NOT INDICAT TEST QUAL (URINE) - Collect Date/Time: 06/22/2023 20:27 [facility] ID: [id number] [address] [place] [address], [address] LOINC: 2106-3 Test Value Unit Reference Range Code Code System Flag TEST NEGATIVE 2106-3 LOINC AMMONIA - Collect Date/Time: 06/22/2023 19:12 [facility] ID: [id number] [address] [place] [address], [address] LOINC: 27105-3 Test Value Unit Reference Range Code Code System Flag AMMONIA 24 umol/L L=19 H=54 19342-5 LOINC ALCOHOL (ETHANOL)* - Collect Date/Time: 06/22/2023 19:12 [facility] ID: [id number] [address] [place] [address], [address] LOINC: 74926-8 Test Value Unit Reference Range Code Code System Flag ALCOHOL (ETHANOL) < 3 mg/dL 50968-0 LOINC ACETAMINOPHEN* - Collect Eduardo e/Time: 06/22/2023 19:12 [facility] ID: [id number] [address] [place] [address], [address] LOINC: 3298-7 Test Value Unit Reference Range Code Code System Flag ACETAMINOPHEN < 2.0 ug/mL L=10.0 H=20.0 3298-7 LOINC L LACTIC ACID - Collect Date/T eber: 06/22/2023 19:12 [facility] ID: [id number] [address] [place] [address], [address] LOINC: Test Value Unit Reference Range Code Code System Flag LACTIC ACID 3.2 mmol/L L=0.7 H=2.1 31256-2 LOINC H HEMOGLOBIN A1C* - Collect Da te/Time: 06/22/2023 19:12 [facility] ID: [id number] [address] [place] [address], [address] LOINC: 4548-4 Test Value Unit Reference Range Code Code System Flag Hgb A1c 9.0 % L=3.8 H=5.7 4548-4 LOINC H MEAN BLOOD GLUCOSE 214 mg/dL 17525-8 LOINC SALICYLATE SERUM* - Collect Date/Time: 06/22/2023 19:12 [facility] ID: [id number] [address] [place] [address], [address] LOINC: 4024-6 Test Value Unit Reference Range Code Code System Flag SALICYLATE 3.8 mg/dL L=15.0 H=30.0 4024-6 LOINC L TSH THYROID STIMULATING HORM ONE* - Collect Date/Time: 06/22/2023 19:12 [facility] ID: [id number] [address] [place] [address], [address] LOINC: 3014-8 Test Value Unit Reference Range Code Code System Flag TSH 0.822 uIU/mL L=0.360 H=3.740 3014-8 LOINC CBC W/ DIFFERENTIAL* - Colle ct Date/Time: 06/22/2023 19:12 [facility] ID: [id number] [address] [place] [address], [id number] LOINC: 68183-1 Test Value Unit Reference Range Code Code [...] 40 Bands % 4 Lymphs % 51 30499-2 LOINC Monos % 4 34213-1 LOINC Eos % Baso % 1 Atyp lymphs 2+ Smudge cells 1+ CORRECTED CORRECTED CORRECTED CORRECTED COMPREHENSIVE METABOLIC PANE L (CMP) - Collect Date/Time: 06/22/2023 19:12 [facility] ID: [id number] [address] [place] [address], [address] LOINC: 35305-3 Test Value Unit Reference Range Code Code [...] H=34 2028-9 LOINC ANION GAP 8.0 mmol/L 78124-8 LOINC CALCIUM SERUM 8.8 mg/dL L=8.2 H=10.2 75020-5 LOINC BILIRUBIN TOTAL 0.5 mg/dL L=0.0 H=1.3 1975-2 LOINC ALK. PHOS. 86 U/L L=46 H=116 6768-6 LOINC SGOT (AST) 17 U/L L=15 H=37 1920-8 LOINC SGPT (ALT) 38 U/L L=12 H=78 1742-6 LOINC TOTAL PROTEIN 7.3 gm/dL L=6.0 H=8.0 2885-2 LOINC ALBUMIN 3.8 gm/dL L=3.4 H=5.0 1751-7 LOINC AGE 47 years eGFR (non-Afr.Amer.) 57 mL/min 56382-2 LOINC eGFR (Afr-Chinese) 69 mL/min 44530-8 LOINC NOVA GLUCOSE FINGER HEEL CAP ILLARY - Collect Date/Time: 06/22/2023 19:01 [facility] ID: [id number] [address] [place], [place], [id number] LOINC: 56143-0 Test Value Unit Reference Range Code Code System Flag GLUCOSE CAP 188 mg/dL L=70 H=116 60854-[address] HEAD WO CONTRAST - Comple katey: 06/22/2023 19:33 LOINC: [facility] RADIOLOG[facility] [place], [place] [address] [employer] REPORT Patient Name: HILDA CROWLEY MRN: Sex: : Age: [id number] F [id number] 47 Account: Accession: Admit: StayType: [id number] 06/22/2023 E/R Ordered: Order ID: Submitted: Ordering Provider: 06/22/2023 19:11 [id number] ROYA MORALES Completed: Technologist: Resulted: 06/22/2023 19:33 [...] em Smoking History Current every day smoker 146642053 SNOMED CT Sex Female Vital Signs Vital Sign Value Unit Po[place]ett Value Po[place]ett Unit Date/Time Recent/Initial? Code Code System Body Mass Index 31.25 kg/m2 06/22/2023 19:15 Initial 76574 -5 LOINC Systolic Blood Pressure 96 mm[Hg] [...] Saturation 97 % 2023 09:01 Most Recent 60870 -5 LOINC O2 Saturation 99 % 2023 19:15 Initial 02239 -5 LOINC Pulse 93.0 /min 06/23/2023 09:01 [...] kg 175.10 lbs 06/22/2023 22:00 Most Recent 50264 -7 INC Weight 72.57 kg 160.00 lbs 06/22/2023 19:15 Initial 80379 -7 [facility] Medications Medication Start Date End Date Route Frequency Dose Code Code System Medication Instructions Home Meds predniSONE 20MG Oral Tablet 01/07/2023 06/23/2023 ORAL DAILY 2 TABLET 318301 RxNorm TAKE 2 TABLET ORAL DAILY Percocet 5MG-325MG Oral Tablet 01/07/2023 06/23/2023 ORAL NEEDED EVERY 4 HOURS 1 TABLET 7926104 RxNorm TAKE 1 TABLET ORAL NEEDED EVERY 4 HOURS Ondansetron 4MG Oral Tablet 06/23/2023 01/31/2024 ORAL NEEDED EVERY 6 HOURS 4 MILLIGRAM S 783805 RxNorm TAKE 4 MILLIGRAM S ORAL NEEDED EVERY 6 HOURS SEROquel 100MG Oral Tablet 06/23/2023 11/11/2023 ORAL BEDTIME 150 MILLIGRAM S 326224 RxNorm TAKE 150 MILLIGRAM S ORAL BEDTIME Spironolactone 100MG Oral Tablet 06/23/2023 Unknown ORAL DAILY 100 MILLIGRAM S 931478 RxNorm TAKE 100 MILLIGRAM S ORAL DAILY Vraylar 6MG Oral Capsule 06/23/2023 11/11/2023 ORAL DAILY 6 MILLIGRAM S 2803892 RxNorm TAKE 6 MILLIGRAM S ORAL DAILY LaMICtal 150MG Oral Tablet 06/23/2023 11/11/2023 ORAL DAILY 1 TABLET RxNorm TAKE 1 TABLET ORAL DAILY HumaLOG 100U/1ML Injection Solution 06/23/2023 Unknown INJECTIO N DAILY 1 unit(s) 670803 RxNorm 1 EACH INJECTION DAILY Mounjaro 06/23/2023 [...] Status Code Code System SLURRED SPEECH active 684082320 SNOME D-CT DIABETES 2 active 83694799 SNOMED-CT BIPOLAR DISORDER active 29239331 SNO MED-CT PTSD 09/19/2021 resolved 95586558 SNOMED-CT FIBROMYALGIA 09/19/2021 resolved 488533793 SNOMED -CT DIABETES 2 07/05/2021 resolved 13950474 SNOMED-C T FALL FROM STAIRS 06/23/2023 resolved 599126704 SN OMED-CT CLOSED FRACTURE OF RIGHT HUMERUS 06/23/2023 resolved 72807914237639496 SNOMED-CT HTN 09/19/2021 resolved 40044112 SNOMED-CT BIPOLAR DISORDER 09/19/2021 resolved 17574000 SN OMED-CT Allergies and Adverse Reactions Allergy Substance Reaction Severity Start Date Concern Status Co de Code System LISINOPRIL Active 07178 RxNorm AMBIEN Altered Mental Status (SNOMED-CT: 361580819) Active 490283 RxNorm Plan of Treatment Lab Draw 07/30/2020 Lab Draw 05/28/2020 US ABDOMEN LIMITED 1 ORGAN 05/06/2023 US RIGHT UPPER QUAD 07/05/2021 Encounters Encounter Diagnosis Start Date Code Code Sys tem Slurred speech 06/22/2023 SNOMED-CT Personal Care Team Section Performer Name Performer Role Active Date Inactive Da te
--- OUTSIDE RECORDS SUMMARY | 2024-02-17 18:35 | XMS_ITS | Encounter Summary ---
Author Organization [facility] [address] Care Team Providers Care Television Engineering Teacher Name Role Phone Jossie Patton APRN Primary Care Provider [phone] Reason for Visit * Reason Comments Medication Refill Encounter Details Date Type Department Care Team (Late Contact Info) Description 01/01/2023 [place] [phone] [facility] [place] [address] Social History Tobacco Use Types Packs/Day Years [...] 1:40 PM EDT Office [place] [phone] [facility] [place] [address] documented as of this encounter Visit Diagnoses Not on filedocumented in this encounter Care Teams Television Engineering Teacher Relationship Specialty Start Date End Date Jossie Patton APRN [address] [place] [address] PCP - General Family Medicine 04/19/20 documented as of this encounter
--- OUTSIDE RECORDS SUMMARY | 2024-02-17 18:35 | XMS_ITS | Encounter Summary ---
Author Organization [facility] [place] [address] Care Team Providers Care Tomb Maker Helper Name Role Phone Jossie Patton APRN Primary Care Provider [phone] Reason for Visit * Reason Onset Date Comments Medication Refill 01/28/2023 Encounter Details Date Type Department Care Team (Late st Contact Info) Description 01/28/2023 Telephone [place] [phone] Kristi Caiecdo [employer] [facility] [place] [address] Medication Refill Social History Tobacco Use Types [...] DOSE: tirzepatide 15 mg/0.5 mL Pen Injector [[id number]] Order Details Dose: 15 mg Route: Subcutaneous Frequency: WEEKLY Dispense Quantity: 2 mL Refills: 3 Note to Pharmacy: Dose increase is intentional Sig: Inject 15 mg subcutaneously once a week. PHARMACY NAME: [facility] [address] [place] [address] [place] [address] PHARMACY PHONE: [phone] Would patient like script sent directly to pharmacy? (Yes or no) yes Would patient like to rock picker paper script here at our office (Please put yes or no) no Would patient like paper script mailed to home address (Please put yes or no) no Caller/Patient aware of 1-2 business day process. documented in this encounter Plan of Treatment Upcoming Encounters Date Type Department Care Team (Late st Contact Info) Description 02/21/2024 1:40 PM EDT Office [place] [address] Kristi Caicedo APRN [facility] [place] [address] documented as of this encounter Visit Diagnoses Not on filedocumented in this encounter Care Teams Tomb Maker Helper Relationship Specialty Start Date End Date Jossie Patton APRN [address] [place] [address] PCP - General Family Medicine 04/19/20 documented as of this encounter
--- OUTSIDE RECORDS SUMMARY | 2024-02-17 18:35 | XMS_ITS | Encounter Summary ---
[place] [address] Care Team Providers Care Ict Trainer Name Role Phone Jossie Patton Gabrielle GARCIA Primary Care Provider [phone] Reason for Visit * Reason Onset Date Comments Pump/sensor 05/16/2022 Encounter Details Date Type Department Care Team (Late st Contact Info) Description 05/16/2022 Telephone [place] [phone] Kaia Farias Pump/sensor Social History Tobacco Use [...] - 05/21/2022 10:36 AM EST CMN from [employer]. Filled out. Kristi Caicedo will sign. Secretaries will fax. * Telephone Encounter - Kaia Farias - 05/16/2022 10:51 AM EST Received CMN from [employer] Will complete as soon as possible documented in this encounter Plan of Treatment Upcoming Encounters Date Type Department Care Team (Late st Contact Info) Description 02/21/2024 1:40 PM EDT Office [place] [address] Kristi Caicedo APRN [facility] [place] [address] documented as of this encounter Visit Diagnoses Not on filedocumented in this encounter Care Teams Ict Trainer Relationship Specialty Start Date End Date Jossie Patton APRN [address] [place] [address] PCP - General Family Medicine 04/19/20 documented as of this encounter
--- OUTSIDE RECORDS SUMMARY | 2024-02-17 18:35 | XMS_ITS | Encounter Summary ---
Author Organization [facility] [place] [address] Care Team Providers Care Functional Consultant Name Role Phone Jossie Patton APRN Primary Care Provider [phone] Encounter Details Date Type Department Care Team (Late st Contact Info) Description 03/29/2022 Telephone Sleep Center at [facility] [address] [place] [phone] Stacy Ndiaye Social History Tobacco Use Types [...] 1:40 PM EDT Office [place] [address] Kristi Caicedo APRN [facility] [place] [address] documented as of this encounter Visit Diagnoses Not on filedocumented in this encounter Care Teams Functional Consultant Relationship Specialty Start Date End Date Jossie Patton APRN [address] [place] [address] PCP - General Family Medicine 04/19/20 documented as of this encounter
--- OUTSIDE RECORDS SUMMARY | 2024-02-17 18:35 | XMS_ITS | Encounter Summary ---
[place] [address] Care Team Providers Care Stopping Builder Name Role Phone Jossie Patton RADHA Primary Care Provider [phone] Reason for Visit * Reason Onset Date Comments Prior Authorization 10/31/2022 Encounter Details Date Type Department Care Team (Late st Contact Info) Description 10/31/2022 [place] [phone] Kaia Farias Social History Tobacco Use Types [...] Telephone Encounter - Kaia Farias - 10/31/2022 12:09 PM EDT Images from the original note were not included. Received PA documented in this encounter Plan of Treatment Upcoming Encounters Date Type Department Care Team (Late st Contact Info) Description 02/21/2024 1:40 PM EDT [place] [address] Kristi Caicedo APRN [facility] [address] documented as of this encounter Visit Diagnoses Not on filedocumented in this encounter Care Teams Stopping Builder Relationship Specialty Start Date End Date Jossie Patton APRN [address] [place] [address] PCP - General Family Medicine 04/19/20 documented as of this encounter
--- OUTSIDE RECORDS SUMMARY | 2024-02-17 18:35 | XMS_ITS | Encounter Summary ---
Author Organization [facility] [place] [address] Care Team Providers Care Deflector Operator Name Role Phone oJssie Patton APRN Primary Care Provider [phone] Encounter Details Date Type Department Care Team [...] 1:40 PM EDT Office [place] [address] Kristi Caicedo APRN [facility] [place] [address] documented as of this encounter Visit Diagnoses Not on filedocumented in this encounter Care Teams Deflector Operator Relationship Specialty Start Date End Date Jossie Patton APRN [address] [place] [address] PCP - General Family Medicine 04/19/20 documented as of this encounter
--- OUTSIDE RECORDS SUMMARY | 2024-02-17 18:35 | XMS_ITS | Encounter Summary ---
Author [facility] [place] [address] Care Team Providers Care Courier Name Role Phone Jossie Patton APRN Primary Care Provider [phone] Encounter Details Date Type Department Care Team (Late Contact Info) Description 08/08/2023 Orders [place] [phone] Kristi Caicedo [facility] [place] [address] Social History Tobacco Use Types Packs/Day Years [...] 1:40 PM EDT Office [place] [phone] Kristi Caicedo [facility] [place] [address] documented as of this encounter Visit Diagnoses Not on filedocumented in this encounter Care Teams Courier Relationship Specialty Start Date End Date Jossie Patton APRN [address] [place] [address] PCP - General Family Medicine 04/19/20 documented as of this encounter
--- OUTSIDE RECORDS SUMMARY | 2024-02-17 18:35 | XMS_ITS | Encounter Summary ---
[place] [address] Care Team Providers Care Geodetic Computator Name Role Phone Jossie Patton APRN Primary Care Provider [phone] Reason for Referral * Consultation (Routine) - Closed Specialty Diagnoses / Procedures Referred By Savannah ashton Referred To Contact Neurology Diagnoses Sleep walking Rojelio Cancino DO [facility] [place] [address] [facility] Neu[facility] [address] [place] [phone] Referral ID Status Reason Start Date Expiration Date V isits Requested Visits Authorized [id number] Closed Consult, Test & Treat 02/25/2023 02/25/2024 1 1 Encounter Details Date Type Department Care Team (Latest Contact Info) Description 02/19/2023 11:00 AM EDT TH Visit (TeleHealth) Sleep Center at [facility] [address] [place] [address] Rojelio Cancino [facility] [place] [address] Sleep walking (Primary Dx); KIMBERLEY (obstructive sleep [...] 14.5 on 05/16/13-> 29 on 07/07/19) 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 DX: E11.65. Tech [...] gauge x 1/2 Syringe 1 each by [facility]Non-Drug; Combo Route) route 6 times daily. Use [...] by mouth Daily. naloxone (Narcan) 4 mg/actuation [place], Non-Aerosol SPRAY 1 SPRAY INTO BOTH NOSTRILS [...] 1:40 PM EDT Office [place] [address] Kristi Caicedo APRN [facility] [place] [address] Scheduled Referrals Name Type Priority Associated Diagnoses Orde r Schedule Referral to Neurology Outpatient Referral Routine Sleep walking Ordered: 02/25/2023 documented as of this encounter Visit Diagnoses Diagnosis Sleep walking- Primary Sleep arousal disorder KIMBERLEY (obstructive sleep apnea) Obstructive sleep apnea (adult) (pediatric) documented in this encounter Care Teams Geodetic Computator Relationship Specialty Start Date End Date Jossie Patton APRN [address] [place] [address] PCP - General Family Medicine 04/19/20 documented as of this encounter
--- OUTSIDE RECORDS SUMMARY | 2024-02-17 18:35 | XMS_ITS | Encounter Summary ---
Author Organization [facility] [place] [address] Care Team Providers Care Data Management Engineer Name Role Phone Jossie Patton APRN Primary Care Provider [phone] Reason for Visit * Reason Onset Date Comments Medication Refill 01/28/2023 Encounter Details Date Type Department Care Team (Late st Contact Info) Description 01/28/2023 Ref[place] [phone] Lianne Sotelo RN Social History Tobacco Use [...] 1:40 PM EDT Office [place] [address] Kristi Caicedo APRN [facility] [place] [address] documented as of this encounter Visit Diagnoses Not on filedocumented in this encounter Care Teams Data Management Engineer Relationship Specialty Start Date End Date Jossie Patton APRN [address] [place] [address] PCP - General Family Medicine 04/19/20 documented as of this encounter
--- OUTSIDE RECORDS SUMMARY | 2024-02-17 18:35 | XMS_ITS | Encounter Summary ---
Author Organization [facility] [place] [address] Care Team Providers Care Top Lifter Name Role Phone Jossie Patton Gabrielle GARCIA Primary Care Provider [phone] Encounter Details Date Type Department Care Team (Late st Contact Info) Description 05/17/2022 Ref[place] [phone] Alexandr Deras, RN Social History Tobacco Use [...] wants her pump setting sent over the QuickPro[employer] portal (done) and to get back on [...] 1:40 PM EDT Office [place] [address] Kristi Caicedo APRN [facility] [place] [address] documented as of this encounter Visit Diagnoses Not on filedocumented in this encounter Care Teams Top Lifter Relationship Specialty Start Date End Date Jossie Patton APRN [address] [place] [address] PCP - General Family Medicine 04/19/20 documented as of this encounter
--- OUTSIDE RECORDS SUMMARY | 2024-02-17 18:35 | XMS_ITS | Encounter Summary ---
Author Organization [facility] [place] [address] Care Team Providers Care Semiautomatic Stitcher Operator Name Role Phone Jossie Patton APRN Primary Care Provider [phone] Reason for Visit * Reason Comments Medication Refill Encounter Details Date Type Department Care Team (Late Contact Info) Description 09/06/2023 Ref[place] [phone] Kristi Caicedo [facility] [place] [address] Social History Tobacco Use Types Packs/Day Years [...] 1:40 PM EDT Office [place] [phone] Kristi Caicedo [facility] [place] [address] documented as of this encounter Visit Diagnoses Not on filedocumented in this encounter Care Teams Semiautomatic Stitcher Operator Relationship Specialty Start Date End Date Jossie Patton APRN [address] [place] [address] PCP - General Family Medicine 04/19/20 documented as of this encounter
--- OUTSIDE RECORDS SUMMARY | 2024-02-17 18:35 | XMS_ITS | Encounter Summary ---
Author Organization [facility] [place] [address] Care Team Providers Care Roads Supervisor Name Role Phone Jossie Patton APRN Primary Care Provider [phone] Reason for Visit * Reason Onset Date Comments Medication Refill 05/14/2022 Encounter Details Date Type Department Care Team (Late Contact Info) Description 05/14/2022 Telephone [place] [address]1000 Blas Roach MD [facility] [place] [address] [place] [address] Medication Refill Social History Tobacco Use Types [...] 1:40 PM EDT Office [place] [address] Kristi Caicedo APRN [facility] [place] [address] documented as of this encounter Visit Diagnoses Diagnosis Uncontrolled type 2 diabetes mellitus with hyperglycemia documented in this encounter Care Teams Roads Supervisor Relationship Specialty Start Date End Date Jossie Patton APRN [address] [place] [address] PCP - General Family Medicine 04/19/20 documented as of this encounter
--- OUTSIDE RECORDS SUMMARY | 2024-02-17 18:35 | XMS_ITS | Encounter Summary ---
[place] [address] Care Team Providers Care Auto Locator Name Role Phone Jossie Patton Gabrielle GARCIA Primary Care Provider [phone] Reason for Visit * Reason Onset Date Comments Prior Authorization 08/10/2022 Encounter Details Date Type Department Care Team (Late st Contact Info) Description 08/10/2022 Telephone [place] [address]1000 Kaia Farias Prior Authorization Social History Tobacco [...] request: Type II DM (E11.65) Health plan: [place] Medicaid (Fax) [place]: [phone] Authorizing customer development representative name: Martha Sent to health plan on: 08/10/22 PA Outcome: PA Denial Quantity approved: Authorization number: [id number] Start date: End date: documented in this encounter Plan of Treatment Upcoming Encounters Date Type Department Care Team (Late st Contact Info) Description 02/21/2024 1:40 PM EDT Office Visit [place] [address] Kristi Caicedo APRN [facility] [place] [address] documented as of this encounter Visit Diagnoses Not on filedocumented in this encounter Care Teams Auto Locator Relationship Specialty Start Date End Date Jossie Patton APRN [address] [place] [address] PCP - General Family Medicine 04/19/20 documented as of this encounter
--- OUTSIDE RECORDS SUMMARY | 2024-02-17 18:35 | XMS_ITS | Encounter Summary ---
Author Organization [facility] [place] [address] Care Team Providers Care Pharmacy Intake Coordinator Name Role Phone Pooja, Jossie Gabrielle GARCIA Primary Care Provider [phone] Encounter Details Date Type Department Care Team (Late st Contact Info) Description 06/14/2022 Telephone [place] [address] Kimberley Bledsoe CMA Social History [...] EST Faxed the signed copy of the [facility] necessity form for medical supplies and equipment to [facility] department of health access for the minimed pump. Received conformation that the fax was sent on 06/14/22 documented in this encounter Plan of Treatment Upcoming Encounters Date Type Department Care Team (Late st Contact Info) Description 02/21/2024 1:40 PM EDT Office Visit [place] [phone] [facility] [place] [address] documented as of this encounter Visit Diagnoses Not on filedocumented in this encounter Care Teams Pharmacy Intake Coordinator Relationship Specialty Start Date End Date Jossie Patton APRN [address] [place] [address] PCP - General Family Medicine 04/19/20 documented as of this encounter
--- OUTSIDE RECORDS SUMMARY | 2024-02-17 18:35 | XMS_ITS | Encounter Summary ---
Author Organization [facility] [place] [address] Care Team Providers Care Land Leases And Rentals Manager Name Role Phone Jossie Patton APRN Primary Care Provider [phone] Reason for Visit * Reason Onset Date Comments Medication Refill 07/10/2022 Encounter Details Date Type Department Care Team (Late st Contact Info) Description 07/10/2022 Ref[place] [address]1000 Blas Roach MD [facility] [place] [address] Social History Tobacco Use Types Packs/Day Years [...] 1:40 PM EDT Office [place] [phone] Kristi Caicedo APRN [facility] [place] [address] documented as of this encounter Visit Diagnoses Not on filedocumented in this encounter Care Teams Land Leases And Rentals Manager Relationship Specialty Start Date End Date Jossie Patton APRN [address] [place] [address] PCP - General Family Medicine 04/19/20 documented as of this encounter
--- OUTSIDE RECORDS SUMMARY | 2024-02-17 18:35 | XMS_ITS | Encounter Summary ---
Author Organization [facility] [place] [address] Care Team Providers Care Vacuum Spindle Sander Name Role Phone Belle Pattonily Gabrielle GARCIA Primary Care Provider [phone] Encounter Details Date Type Department Care Team (Late st Contact Info) Description 05/18/2022 11:20 AM EST TH Visit (TeleHealth) [place] [address] Kristi Caicedo APRN [facility] [place] [address] Type 2 diabetes mellitus with hyperglycemia, with [...] Jossie Patton for FOLLOW UP to the [facility] endocrine clinic for diabetes services. This visit was completed on the telehealth Patient verified Name and Date of . Patient reports she is in [place] location. Patient consents to the visit being [...] She Just reduced seroquel for sleep. WEIGHT [id number]. Right now 196. 5 feet tall. DOG [...] ketones at home. Recent ED Apr 2022. [facility]. Diet Following type of diet: none Carb counting: yes Last visit with health and fitness professor: Jarrod Lord Recall: B- eggs and coffee [...] Conc, Random mg/L <3.0 <3.0 On PHILIPPE/ARB:yes Securities Analyst: none Cardio: Patient heart attack in past: no No stroke Aspirin: no No data found. Last cholesterol: Latest Reference Range & Units 05/23/20 08:20 03/23/22 10:45 LDL Chol Direct mg/dL 96 151 Cholesterol medication: crestor Feet: History of Neuropathy: yes Current status of Neuropathy: some intermittent pain in legs and numbness in legs. Gabapentin in past. Recharger: not discussed Flu Vaccination: 2021 Pneumonia vaccine: [...] FOR FIVE DAYS naloxone (Narcan) 4 mg/actuation [place], Non-Aerosol SPRAY 1 SPRAY INTO BOTH NOSTRILS [...] gauge x 3/16 Needle 1 each by [facility].(Non-Drug; Combo Route) route daily. glucagon, Human Recombinant, [...] educaiton reviewed and documentation. Kristi Caicedo, UYEN, TRAFFIC CONTROL OPERATOR-BC, CDE Section of Endocrinology documented in this encounter Plan of Treatment Upcoming Encounters Date Type Department Care Team (Late st Contact Info) Description 02/21/2024 1:40 PM EDT Office [place] [address] Kristi Caicedo APRN [facility] [place] [address] documented as of this encounter Visit Diagnoses Diagnosis Type 2 diabetes mellitus with hyperglycemia, with long-term current use of insulin- Primary Insulin pump in place Insulin pump status documented in this encounter Care Teams Vacuum Spindle Sander Relationship Specialty Start Date End Date Jossie Patton APRN [address] [place] [address] PCP - General Family Medicine 04/19/20 documented as of this encounter
--- OUTSIDE RECORDS SUMMARY | 2024-02-17 18:35 | XMS_ITS | Encounter Summary ---
Author Organization [facility] [place] [address] Care Team Providers Care Shipping Assistant Name Role Phone PoojaJossie karimi Gabrielle GARCIA Primary Care Provider [phone] Encounter Details Date Type Department Care Team (Late st Contact Info) Description 10/29/2022 Refill [place] [address]1000 Alexandr Deras RN Social History Tobacco Use [...] a refill of he pen needles to [facility] in [place], [place]. documented in this encounter Plan of Treatment Upcoming Encounters Date Type Department Care Team (Late st Contact Info) Description 02/21/2024 1:40 PM EDT Office [place] [address] Kristi Caicedo APRN [facility] [address] [place], [place] [address] documented as of this encounter Visit Diagnoses Not on filedocumented in this encounter Care Teams Shipping Assistant Relationship Specialty Start Date End Date Jossie Patton APRN [address] [place] [address] PCP - General Family Medicine 04/19/20 documented as of this encounter
--- OUTSIDE RECORDS SUMMARY | 2024-02-17 18:35 | XMS_ITS | Encounter Summary ---
Author Organization [facility] [place] [address] Care Team Providers Care Intern Brand Name Role Phone Jossie Patton APRN Primary Care Provider Reason for Visit * Reason Comments Medication Refill Encounter Details Date Type Department Care Team (Late st Contact Info) Description 01/11/2023 [place] [address] Blas Roach MD [facility] [place] [address] Uncontrolled type 2 diabetes mellitus with hyperglycemia [...] 1:40 PM EDT Office [place] [address] Kristi Caicedo APRN [facility] [place] [address] documented as of this encounter Visit Diagnoses Diagnosis Uncontrolled type 2 diabetes mellitus with hyperglycemia documented in this encounter Care Teams Intern Brand Relationship Specialty Start Date End Date Jossie Patton APRN [address] [place] [address] PCP - General Family Medicine 04/19/20 documented as of this encounter
--- OUTSIDE RECORDS SUMMARY | 2024-02-17 18:35 | XMS_ITS ---
Author Organization Unknown Address [address] [place] [phone] Phone Care Team Providers Care Photogrammetrist Name Role Phone MALIA Anthony Attending Unavailable Social History Type Status Start Date End Date Code Code Syst em Smoking History Current every day smoker 611477946 SNOMED CT Sex Female Medications Medication Start Date End Date Route Frequency Dose Code Code System Medication Instructions Home Meds predniSONE 20MG Oral Tablet 01/07/2023 06/23/2023 ORAL DAILY 2 TABLET 992353 RxNorm TAKE 2 TABLET ORAL DAILY Percocet 5MG-325MG Oral Tablet 01/07/2023 06/23/2023 ORAL NEEDED EVERY 4 HOURS 1 TABLET 6113974 RxNorm TAKE 1 TABLET ORAL NEEDED EVERY 4 HOURS Ondansetron 4MG Oral Tablet 06/23/2023 01/31/2024 ORAL NEEDED EVERY 6 HOURS 4 MILLIGRAM S 444085 RxNorm TAKE 4 MILLIGRAM S ORAL NEEDED EVERY 6 HOURS SEROquel 100MG Oral Tablet 06/23/2023 11/11/2023 ORAL BEDTIME 150 MILLIGRAM S 566833 RxNorm TAKE 150 MILLIGRAM S ORAL BEDTIME Spironolactone 100MG Oral Tablet 06/23/2023 Unknown ORAL DAILY 100 MILLIGRAM S 746110 RxNorm TAKE 100 MILLIGRAM S ORAL DAILY Vraylar 6MG Oral Capsule 06/23/2023 11/11/2023 ORAL DAILY 6 MILLIGRAM S 5633850 RxNorm TAKE 6 MILLIGRAM S ORAL DAILY LaMICtal 150MG Oral Tablet 06/23/2023 11/11/2023 ORAL DAILY 1 TABLET RxNorm TAKE 1 TABLET ORAL DAILY HumaLOG 100U/1ML Injection Solution 06/23/2023 Unknown INJECTIO N DAILY 1 unit(s) 194221 RxNorm 1 EACH INJECTION DAILY Martinshivani 06/23/2023 [...] Status Code Code System SLURRED SPEECH active 942315573 SNOME D-CT DIABETES 2 active 88823283 SNOMED-CT BIPOLAR DISORDER active 32447794 SNO MED-CT PTSD 09/19/2021 resolved 66467027 SNOMED-CT FIBROMYALGIA 09/19/2021 resolved 096671051 SNOMED -CT DIABETES 2 07/05/2021 resolved 99257060 SNOMED-C T FALL FROM STAIRS 06/23/2023 resolved 958769110 SN OMED-CT CLOSED FRACTURE OF RIGHT HUMERUS 06/23/2023 resolved [id number] SNOMED-CT HTN 09/19/2021 resolved 75605202 SNOMED-CT BIPOLAR DISORDER 09/19/2021 resolved 32601293 SN OMED-CT Allergies and Adverse Reactions Allergy Substance Reaction Severity Start Date Concern Status Co de Code System LISINOPRIL Active 73121 RxNorm AMBIEN Altered Mental Status (SNOMED-CT: 097939987) Active 386241 RxNorm Plan of Treatment Lab Draw 07/30/2020 Lab Draw 05/28/2020 US ABDOMEN LIMITED 1 ORGAN 05/06/2023 US RIGHT UPPER QUAD 07/05/2021 Encounters Encounter Diagnosis Start Date Code Code Sys tem Altered mental status, unspecified 06/22/2023 SNOMED-CT Personal Care Team Section Performer Name Performer Role Active Date Inactive Da te
--- OUTSIDE RECORDS SUMMARY | 2024-02-17 18:35 | XMS_ITS | Encounter Summary ---
Author Organization [facility] [place] [address] Care Team Providers Care Geological E Logger Name Role Phone Jossie Patton APRN Primary Care Provider [phone] Encounter Details Date Type Department Care Team (Late st Contact Info) Description 03/27/2022 Tele[place] [phone] Bart Muñoz RN Social History Tobacco Use [...] 1:40 PM EDT Office [place] [address]1000 Kristi Caicedo APRN [facility] [place] [address] documented as of this encounter Visit Diagnoses Not on filedocumented in this encounter Care Teams Geological E Logger Relationship Specialty Start Date End Date Jossie Patton APRN [address] [place] [address] PCP - General Family Medicine 04/19/20 documented as of this encounter
--- OUTSIDE RECORDS SUMMARY | 2024-02-17 18:35 | XMS_ITS | Encounter Summary ---
[place] [address] Care Team Providers Care Display Designer Name Role Phone Jossie Patton Gabrielle GARCIA Primary Care Provider [phone] Reason for Visit * Reason Onset Date Comments Pump/sensor 07/02/2022 Encounter Details Date Type Department Care Team (Late st Contact Info) Description 07/02/2022 Telephone [place] [address]1000 Kaia Farias Pump/sensor Social History Tobacco Use [...] 1:40 PM EDT Office [place] [address] Kristi Caicedo APRN [facility] [place] [address] documented as of this encounter Visit Diagnoses Not on filedocumented in this encounter Care Teams Display Designer Relationship Specialty Start Date End Date Jossie Patton APRN [address] [place] [address] PCP - General Family Medicine 04/19/20 documented as of this encounter
--- OUTSIDE RECORDS SUMMARY | 2024-02-17 18:35 | XMS_ITS | Encounter Summary ---
Author Organization [facility] [place] [address] Care Team Providers Care Marketing Regional Consultant Name Role Phone Jossie Patton APRN Primary Care Provider [phone] Reason for Visit * Reason Comments Medication Refill Encounter Details Date Type Department Care Team (Late Contact Info) Description 10/27/2023 Ref[place] [address]1000 Kristi Caicedo [facility] [place] [address] Social History Tobacco Use Types Packs/Day Years [...] 1:40 PM EDT Office [place] [address]-1000 Kristi Caicedo [facility] [address] documented as of this encounter Visit Diagnoses Not on filedocumented in this encounter Care Teams Marketing Regional Consultant Relationship Specialty Start Date End Date Jossie Patton APRN [address] [place] [address] PCP - General Family Medicine 04/19/20 documented as of this encounter
--- OUTSIDE RECORDS SUMMARY | 2024-02-17 18:35 | XMS_ITS | Encounter Summary ---
Author Organization [facility] [place] [address] Care Team Providers Care Back Shoe Worker Name Role Phone Jossie Patton APRN Primary Care Provider [phone] Reason for Visit * Reason Onset Date Comments Medication Refill 07/10/2022 Encounter Details Date Type Department Care Team (Late st Contact Info) Description 07/10/2022 Refill [place] [address] Kristi Caicedo FORESTRY ADVISER [facility] [place] [address] Social History Tobacco Use Types Packs/Day Years [...] Deras RN - 07/20/2022 8:14 AM EDT [facility] message to patient notifying her of the [...] 1:40 PM EDT Office Visit [place] [address] Kristi Caicedo APRN [facility] [place] [address] documented as of this encounter Visit Diagnoses Not on filedocumented in this encounter Care Teams Back Shoe Worker Relationship Specialty Start Date End Date Jossie Patton APRN [address] [place] [address] PCP - General Family Medicine 04/19/20 documented as of this encounter
--- OUTSIDE RECORDS SUMMARY | 2024-02-17 18:35 | XMS_ITS | Encounter Summary ---
Author Organization [facility] [place] [address] Care Team Providers Care Dental Assistant Name Role Phone Pooja Jossie Gabrielle GARCIA Primary Care Provider [phone] Encounter Details Date Type Department Care Team (Late st Contact Info) Description 06/28/2022 Telephone [place] [address] Kimberley Bledsoe CMA Social History [...] EST Faxes singed copy of the Department [facility] Access for medical supplies and equipment Received conformation that the fax was sent on 06/25/22 (this was a duplicate of a previous form that we received earlier) documented in this encounter Plan of Treatment Upcoming Encounters Date Type Department Care Team (Late st Contact Info) Description 02/21/2024 1:40 PM EDT Office Visit [place] [address] Kristi Caicedo APRN [facility] [place] [address] documented as of this encounter Visit Diagnoses Not on filedocumented in this encounter Care Teams Dental Assistant Relationship Specialty Start Date End Date Jossie Patton APRN [address] [place] [address] PCP - General Family Medicine 04/19/20 documented as of this encounter
--- OUTSIDE RECORDS SUMMARY | 2024-02-17 18:35 | XMS_ITS | Encounter Summary ---
[place] [address] Care Team Providers Care Aircraft Machinist Helper Name Role Phone Pooja, Jossie Gabrielle GARCIA Primary Care Provider [phone] Reason for Visit * Reason Onset Date Comments Prior Authorization 08/10/2022 Encounter Details Date Type Department Care Team (Late st Contact Info) Description 08/10/2022 [place] [address]1000 Kaia Farias Prior Authorization Social History Tobacco [...] Authorization Sascha Medication name/dose/directions: [employer] Guardian Connect Billet Header Rationale for request: Type II DM (E11.65) Health plan: [place] Medicaid (Fax) [place]: [phone] Authorizing technical account representative name: Martha Sent to health plan on: 08/10/22 PA Outcome: PA Denial Quantity approved: Authorization number: [id number] Start date: End date: documented in this encounter Plan of Treatment Upcoming Encounters Date Type Department Care Team (Late st Contact Info) Description 02/21/2024 1:40 PM EDT [place] [address] Kristi Caicedo APRN [facility] [place] [address] documented as of this encounter Visit Diagnoses Not on filedocumented in this encounter Care Teams Aircraft Machinist Helper Relationship Specialty Start Date End Date Jossie Patton APRN [address] [place] [address] PCP - General Family Medicine 04/19/20 documented as of this encounter
--- OUTSIDE RECORDS SUMMARY | 2024-02-17 18:35 | XMS_ITS | Encounter Summary ---
Author Organization [facility] [place] [address] Care Team Providers Care Educational Paraprofessional Name Role Phone Jossie Patton APRN Primary Care Provider [phone] Reason for Visit * Reason Comments Medication Refill Encounter Details Date Type Department Care Team (Late Contact Info) Description 09/05/2023 Refill [place] [address] [facility] [place] [address] Social History Tobacco Use Types Packs/Day Years [...] 1:40 PM EDT Office Visit [place] [address] [facility] [place] [address] documented as of this encounter Visit Diagnoses Not on filedocumented in this encounter Care Teams Educational Paraprofessional Relationship Specialty Start Date End Date Jossie Patton APRN [address] [place] [address] PCP - General Family Medicine 04/19/20 documented as of this encounter
--- OUTSIDE RECORDS SUMMARY | 2024-02-17 18:35 | XMS_ITS | Encounter Summary ---
Author Organization [facility] [place] [address] Care Team Providers Care Copy Writer Name Role Phone Jossie Patton APRN Primary Care Provider Reason for Visit * Reason Comments Medication Refill Encounter Details Date Type Department Care Team (Late st Contact Info) Description 01/01/2023 Ref[place] [address]1000 Blas Roach MD [facility] [place] [address] Uncontrolled type 2 diabetes mellitus with hyperglycemia [...] 1:40 PM EDT Office [place] [address]1000 Kristi Caicedo APRN [facility] [place] [address] documented as of this encounter Visit Diagnoses Diagnosis Uncontrolled type 2 diabetes mellitus with hyperglycemia documented in this encounter Care Teams Copy Writer Relationship Specialty Start Date End Date Jossie Patton APRN [address] [place] [address] PCP - General Family Medicine 04/19/20 documented as of this encounter
--- OUTSIDE RECORDS SUMMARY | 2024-02-17 18:35 | XMS_ITS | Encounter Summary ---
Author Organization [facility] [place] [address] Care Team Providers Care Port Crane Operator Name Role Phone Jossie Patton APRN Primary Care Provider [phone] Encounter Details Date Type Department Care Team (Late st Contact Info) Description 09/06/2023 1:00 PM EDT Office Visit [place] [address] Kristi Caicedo HEAD UP OPERATOR [facility] [place] [address] Type 2 diabetes mellitus with hyperglycemia, with [...] Jossie Patton for FOLLOW UP to the [facility] endocrine clinic for diabetes services. 48 yo [...] 15 mg and asking to send to [facility] today. She will use the 10mg if [...] taking at night to reduce insulin needs [place] - uses Humalog - now on 630G [...] Had ketones at home. ED Apr 2022. [facility]. Diet Following type of diet: none Carb counting: yes Last visit with fusing machine tender: Arabella Diet Recall: B- eggs and coffee [...] Conc, Random mg/L <3.0 <3.0 On PHILIPPE/ARB:yes Director Data Architecture: none Cardio: Patient heart attack in past: [...] in legs. Gabapentin in past. off now. 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 Blood-Glucose Meter,Continuous (Dexcom G7 Furniture Removalist) Misc by [facility]Non-Drug; Combo Route) route. Yes Mounjaro 10 mg/0.5 [...] gauge x 3/16 Needle 1 each by [facility]Non-Drug; Combo Route) route daily. DX: E11.65. Tech Lite brand per insurance please. Thank you! Yes metFORMIN (Glucophage) 1,000 mg tablet Take 1 tablet by mouth 2 times daily. Yes Insulin Syringe-Needle U-100 (Insulin Syringe) 0.5 mL 29 gauge x 1/2 Syringe 1 each by [facility]Non-Drug; Combo Route) route 6 times daily. Use [...] as needed. Yes naloxone (Narcan) 4 mg/actuation [place], Non-Aerosol SPRAY 1 SPRAY INTO BOTH NOSTRILS [...] mouth Daily. Yes blood sugar diagnostic strips ([place] BooksTouch Verio test strips) Strip USE TO CHECK [...] interpretation and review completed. Kristi Caicedo, UYEN, CAR CUSTOMIZER-BC, CDE Section of Endocrinology * Kristi Caicedo [...] 1:40 PM EDT Office [place] [address] Kristi Caicedo APRN [facility] [place] [address] documented as of this encounter Procedures Procedure [...] Not Calculated 0 - 29 mcg/mg Cr [facility] Comment: Reference Ranges: <30 mcg/mg: [...] 2, 357? 362 Albumin, Urine <3.0 mg/L [facility] Creatinine, Urine 91 mg/dL [facility] Urine 09/06/2023 1:53 PM EDT 09/06/2023 2:09 PM EDT Narrative Resulting Agency Comment Spec In Lab Kristi Caicedo HEAD UP OPERATOR URINE ORDERABLE S [facility] [place] [address] * Vitamin B12 (09/06/2023 1:36 PM EDT) Vitamin B12 429 232 - 1,245 pg/mL [facility] Blood 09/06/2023 1:36 PM EDT 09/06/2023 2:01 PM EDT Narrative Resulting Agency Comment Spec In Lab Kristi Caicedo HEAD UP OPERATOR CHEMISTRY ORDER YOON Performing Organization Address City/[facility]/ZIP Co de Phone Number [facility] [place] [address] * Vitamin D, 25-Hydroxy (09/06/2023 1:36 PM EDT) Vitamin D Total 25 OH 30 21 - 100 ng/mL [facility] Vit D Interp Sufficient [facility] Blood 09/06/2023 1:36 PM EDT 09/06/2023 2:01 PM EDT Narrative Resulting Agency Comment Spec In Lab Kristi Caicedo HEAD UP OPERATOR CHEMISTRY ORDER YOON Performing Organization Address City/[facility]/ZIP Co de Phone Number [facility] [place] [address] * TSH (09/06/2023 1:36 PM EDT) Thyroid Stimulating Hormone 1.02 0.27 - 4.20 mcIU/mL [facility] Comment: Reference Interval (mcIU/mL): Females: ??First Trimester: 0.23-3.88 ??Second Trimester: 0.22-3.90 ??Third Trimester: 0.44-4.66 Blood 09/06/2023 1:36 PM EDT 09/06/2023 2:01 PM EDT Narrative Resulting Agency Comment Spec In Lab Kristi Caicedo HEAD UP OPERATOR CHEMISTRY ORDER YOON [facility] [place] [address] * Comprehensive metabolic panel (non-fasting) (09/06/2023 1:36 PM EDT) Glucose 80 65 - 199 mg/dL [facility] Comment:Diabetes: >=200 mg/d L plus symptoms Blood Urea Nitrogen 8 8 - 18 mg/dL [facility] Creatinine 1.13 0.70 - 1.20 mg/dL [facility] Sodium 139 135 - 145 mmol/L [facility] Potassium 4.1 3.5 - 5.0 mmol/L [facility] Comment: Please note: ??Patients with WBC >100,000 may have falsely elevated Potassium levels. ??For accurate Potassium quantification in these patients send serum separator tube (gold top) for subsequent determinations. ??Contact the Clinical Chemistry Laboratory if there are any questions. Chloride 101 98 - 107 mmol/L [facility] Carbon Dioxide 25 22 - 31 mmol/L [facility] Anion Gap 13 5 - 15 mmol/L [facility] Calcium 10.4 8.5 - 10.5 mg/dL [facility] Protein, Total 7.4 6.1 - 8.0 g/dL [facility] Albumin 4.6 3.2 - 5.2 g/dL [facility] Aspartate Aminotransferase 16 0 - 30 unit/L [facility] Alanine Aminotransferase 19 0 - 30 unit/L [facility] Alkaline Phosphatase 89 35 - 105 unit/L [facility] Bilirubin, Total 0.4 0.2 - 1.3 mg/dL [facility] Est Glomerular Filtration Rate 61 >=60 mL/min/1. 73 m?? [facility] Comment: This patient's estimated GFR [...] Resulting Agency Comment Spec In Lab Kristi Caiecdo APRN CHEMISTRY ORDER YOON [facility] [place] [address] * Lipid Panel (Reflex Direct LDL) (09/06/2023 1:36 PM EDT) Cholesterol, Total 209 mg/dL [facility] Comment: Desirable: ? <200 mg/dL Borderline High: 200-239 mg/dL Higher: ?>bq=982 mg/dL Triglyceride 214 mg/dL [facility] Comment: Normal: ?<150 mg/dL Borderline High: 150-199 mg/dL High: ?200-499 mg/dL Very High: ? >ai=302 mg/dL HDL Cholesterol 58 mg/dL [facility] Comment: Females: High Risk: <50 mg/dL Males: High Risk: <40 mg/dL LDL Cholesterol 108 mg/dL [facility] Comment: Desirable: ? <100 mg/dL Above Desirable: 100-129 mg/dL Borderline High: 130-159 mg/dL High: ?160-189 mg/dL Very High: ? >vy=590 mg/dL Lipid Interpretation See Note [facility] Comment: It is important to [...] ACC/AHA Guidelines (most recently Yadiel et al. [facility] 01/30/22): For individuals with atherosclerotic cardiovascular disease (ASCVD)or LDL >tq=203 mg/dL, use a high-intensity statin (40-80 mg [...] Comment Spec In Lab Kristi H Kassels HEAD UP OPERATOR CHEMISTRY ORDER YOON [facility] [place] [address] * (ABNORMAL) Hemoglobin A1c (09/06/2023 1:36 PM EDT) Hemoglobin A1c 7.7(H) 4.3 - 5.6 % [facility] Comment: Reference Range: 4.3 - [...] Mellitus, Diabetes Care 2013; 36: Suppl. 1, E47-50 Estimated Average Glucose 174 mg/dL [facility] Blood 09/06/2023 1:36 PM EDT 09/06/2023 2:01 PM EDT Narrative Resulting Agency Comment Spec In Lab Kristi Sunshine Sascha HEAD UP OPERATOR CHEMISTRY ORDER YOON Performing Organization Address City/[facility]/ZIP Co de Phone Number [facility] [place] [address] documented in this encounter Visit Diagnoses Diagnosis Type 2 diabetes mellitus with hyperglycemia, with long-term current use of insulin Vitamin D deficiency (25vitD 14.5 on 05/16/13-> 29 on 07/07/19) Unspecified vitamin D deficiency Mixed hyperlipidemia Insulin pump in place Insulin pump status documented in this encounter Care Teams Port Crane Operator Relationship Specialty Start Date End Date Jossie Patton APRN [address] [place] [address] PCP - General Family Medicine 04/19/20 documented as of this encounter
--- OUTSIDE RECORDS SUMMARY | 2024-02-17 18:35 | XMS_ITS | Clinical Summary ---
Author Organization [facility] Address [facility] [place] [address] Care Team Providers Care Flooring Salesperson Name Role Phone Belle Pattonily Gabrielle GARCIA Primary Care Provider [phone] Allergies Active Allergy Reactions Criticality Noted Date [...] mg 08/22/2021 Active naloxone (Narcan) 4 mg/actuation [place], Non-Aerosol SPRAY 1 SPRAY INTO BOTH NOSTRILS [...] current use of insulin 1 each by [facility].(Non-Drug; Combo Route) route 6 times daily. Use as needed when pump malfunctions. 100 each 3 05/18/2022 Active metFORMIN (Glucophage) 1,000 mg tablet Take 1 tablet by mouth 2 times daily. 180 tablet 1 08/14/2022 Active insulin needles, disposable, 31 gauge x 3/16 Needle 1 each by [facility].(Non-Drug; Combo Route) route daily. DX: E11.65. Tech [...] 1 04/04/2023 Active Blood-Glucose Meter,Continuous (Dexcom G7 Project Accountant) Misc by [facility].(Non-Drug; Combo Route) route. Active humaLOG 100 unit/mL [...] 14.5 on 05/16/13-> 29 on 07/07/19) 05/21/2020 [place]-induced hypothyroidi sm and transient hypercalcemia (TSH 4.4H [...] Care Team Description 12/13/2023 [place] [address] Kristi Caicedo APRN from Last [...] 1:40 PM EDT Office [place] [address] Kristi Caicedo APRN [facility] [place] [address] Health Maintenance Due Date Last Done Comments [...] 09/05/2028 09/06/2023 Medical Devices Implanted Type Area Zanjero Device Identifier Shelf Expiration Date Model / Serial / Lot Screw 4.5x26mm Osvaldo Ft Ss Lc Dcp ([id number]) (Autoreq) - [id number] Implanted:Qty: 3 on 09/28/2021 by Geronimo Giron MD at [facility] IMPLANTS Right: Arm [email or web address] JOHN 214.826 / / Screw 4.5x28mm Osvaldo Ft Ss Lc Dcp ([id number]) (Autoreq) - [id number] Implanted:Qty: 2 on 09/28/2021 by Geronimo Giron MD at [facility] IMPLANTS Right: Arm Adviesmanager.[email or web address] JOHN 214.828 / / Screw 4.5x30mm Osvaldo Ft Ss Lc Dcp ([id number]) (Autoreq) - [id number] Implanted:Qty: 1 on 09/28/2021 by Geronimo Giron MD at [facility] IMPLANTS Right: Arm Adviesmanager.nl JOHN 214.830 / / Screw 2.7x18mm Osvaldo Ss Lcp ([id number]) (Autoreq) - [id number] Implanted:Qty: 1 on 09/28/2021 by Geronimo Giron MD at [facility] IMPLANTS Right: Arm Adviesmanager.nl JOHN 202.878 / / Plate 4.9j775tt Narrow 9 Hole Comp Lck Ss Lc Dcp ([id number]) (Autoreq) - [id number] Implanted:Qty: 1 on 09/28/2021 by Geronimo Giron MD at [facility] IMPLANTS Right: Arm Adviesmanager.nl JOHN 224.591 / / Procedures Procedure Name [...] [facility] Creatinine, Urine 91 mg/dL [facility] Urine 09/06/2023 1:53 PM EDT 09/06/2023 2:09 PM EDT Narrative Resulting Agency Comment Spec In Lab Kristi Caicedo CARDIAC CARE NURSE URINE ORDERABLE S [facility] [place] [address] * (ABNORMAL) Hemoglobin A1c (09/06/2023 1:36 PM EDT) Pathologist [facility] Hemoglobin A1c 7.7(H) 4.3 - 5.6 % [...] Mellitus, Diabetes Care 2013; 36: Suppl. 1, S67-32 Estimated Average Glucose 174 mg/dL [facility] Blood 09/06/2023 1:36 PM EDT 09/06/2023 2:01 PM EDT Narrative Resulting Agency Comment Spec In Lab Kristi Caicedo APRN CHEMISTRY ORDER YOON [facility] [place] [address] * Lipid Panel (Reflex Direct LDL) (09/06/2023 1:36 PM EDT) [facility] Cholesterol, Total 209 mg/dL [facility] Comment: Desirable: ? <200 mg/dL Borderline High: 200-239 mg/dL Higher: ?>ps=346 mg/dL Triglyceride 214 mg/dL [facility] Comment: Normal: ?<150 mg/dL Borderline High: 150-199 mg/dL High: ?200-499 mg/dL Very High: ? >rx=372 mg/dL HDL Cholesterol 58 mg/dL [facility] Comment: Females: High Risk: <50 mg/dL Males: High Risk: <40 mg/dL LDL Cholesterol 108 mg/dL [facility] Comment: Desirable: ? <100 mg/dL Above Desirable: 100-129 mg/dL Borderline High: 130-159 mg/dL High: ?160-189 mg/dL Very High: ? >sc=799 mg/dL Lipid Interpretation See Note [facility] [...] ACC/AHA Guidelines (most recently Yadiel et al. [facility] 01/30/22): For individuals with atherosclerotic cardiovascular disease (ASCVD)or LDL >wi=477 mg/dL, use a high-intensity statin (40-80 mg [...] Agency Comment Spec In Lab Kristi Caicedo CARDIAC CARE NURSE CHEMISTRY ORDER YOON [facility] [place] [address] * Comprehensive metabolic panel (non-fasting) (09/06/2023 1:36 [...] Agency Comment Spec In Lab Kristi Caicedo CARDIAC CARE NURSE CHEMISTRY ORDER YOON [facility] [place] [address] from Last 3 Months or Most Recently Relevant to Health Maintenance Advance Directives * Attempt Cardiopulmonary Resuscitation - Inpatient (Latest Code Status on File) Date Activated Date Inactivated Comments 09/26/2021 3:15 PM 09/29/2021 6:31 PM Question Answer Comments Code Status decision made by: Patient Care Teams Flooring Salesperson Relationship Specialty Start Date End Date Pooja, Jossie J, CARDIAC CARE NURSE [address] [place] [address] PCP - General Family Medicine 04/19/20
--- OUTSIDE RECORDS SUMMARY | 2024-02-17 18:35 | XMS_ITS | Encounter Summary ---
Author Organization [facility] [place] [address] Care Team Providers Care Ditch Cleaner Name Role Phone Jossie Patton APRN Primary Care Provider [phone] Reason for Visit * Reason Comments Medication Refill Encounter Details Date Type Department Care Team (Late Contact Info) Description 03/31/2023 Ref[place] [phone] Blas Roach MD [facility] [place] [address] Social History Tobacco Use Types Packs/Day Years [...] 1:40 PM EDT Office [place] [address] Kristi Caicedo APRN [facility] [place] [address] documented as of this encounter Visit Diagnoses Not on filedocumented in this encounter Care Teams Ditch Cleaner Relationship Specialty Start Date End Date Jossie Patton APRN [address] [place] [address] PCP - General Family Medicine 04/19/20 documented as of this encounter
--- OUTSIDE RECORDS SUMMARY | 2024-02-17 18:35 | XMS_ITS | Encounter Summary ---
Author Organization [facility] [place] [address] Care Team Providers Care Wool Spotter Name Role Phone Belle Pattonily Gabrielle GARCIA Primary Care Provider [phone] Encounter Details Date Type Department Care Team (Late st Contact Info) Description 05/22/2022 [place] [phone] Alexandr Deras RN Social History Tobacco Use [...] EST Patient left voicemail that [facility] [place], [place] can get Mounjaro 7.5mg or 10mg. She is hoping tohave one of these sent in for a 3 month supply so she can take this instead of Trulicity given the widespread backorder on Trulicity. documented in this encounter Plan of Treatment Upcoming Encounters Date Type Department Care Team (Late st Contact Info) Description 02/21/2024 1:40 PM EDT Office [place] [address] Kristi Caicedo APRN [facility] [place] [address] documented as of this encounter Visit Diagnoses Not on filedocumented in this encounter Care Teams Wool Spotter Relationship Specialty Start Date End Date Jossie Patton APRN [address] [place] [address] PCP - General Family Medicine 04/19/20 documented as of this encounter
--- OUTSIDE RECORDS SUMMARY | 2024-02-17 18:35 | XMS_ITS | Encounter Summary ---
[place] [address] Care Team Providers Care Uniform Attendant Name Role Phone Jossie Patton Gabrielle GARCIA Primary Care Provider [phone] Reason for Visit * Reason Onset Date Comments Prior Authorization 03/26/2022 Encounter Details Date Type Department Care Team (Late st Contact Info) Description 03/26/2022 Telephone [place] [phone] Kaia Farias Prior Authorization Social History Tobacco [...] 04/05/2022 10:45 AM EST Appeal letter routed [phone] * Telephone Encounter - Kaia Farias - [...] request: Type II DM (E11.65) Health plan: [place] Medicaid ([facility]) Larose: [id number] Authorizing advertising representative name: Martha Sent to health plan on: 03/26/22 Health plan decision: Denied Quantity approved: Authorization number: [id number] Start date: End date: * Telephone Encounter - Kaia Farias - 03/26/2022 7:35 AM EST Images from the original note were not included. Received PA for mounjaro 7.5mg/0.5mL Will complete as soon as possible documented in this encounter Plan of Treatment Upcoming Encounters Date Type Department Care Team (Late st Contact Info) Description 02/21/2024 1:40 PM EDT Office [place] [address] Kristi Caicedo APRN [facility] [place] [address] documented as of this encounter Visit Diagnoses Not on filedocumented in this encounter Care Teams Uniform Attendant Relationship Specialty Start Date End Date Jossie Patton APRN [address] [place] [address] PCP - General Family Medicine 04/19/20 documented as of this encounter
--- OUTSIDE RECORDS SUMMARY | 2024-02-17 18:35 | XMS_ITS | Encounter Summary ---
[place] [address] Care Team Providers Care Heel Compressor Name Role Phone Pooja, Jossie Gabrielle GARCIA Primary Care Provider [phone] Reason for Visit * Reason Onset Date Comments Prior Authorization 05/25/2022 Encounter Details Date Type Department Care Team (Late st Contact Info) Description 05/25/2022 Telephone [place] [address] Kaia Farisa Prior Authorization Social History Tobacco Use Types [...] II DM (E11.65) Health plan: [place] Medicaid ([facility]) [place]: [id number] Authorizing health and safety representative name: Martha Sent to health plan on: 05/29/22 PA Outcome: PA Denial Quantity approved: Authorization number: [id number] Start date: End date: * Telephone Encounter - Kaia Farias - 05/25/2022 8:21 AM EST Images from the original note were not included. Received PA for mounjaro 7.5mg/0.5mL Will complete as soon as possible documented in this encounter Plan of Treatment Upcoming Encounters Date Type Department Care Team (Late st Contact Info) Description 02/21/2024 1:40 PM EDT Office [place] [address] Kristi Caicedo APRN [facility] [place] [address] documented as of this encounter Visit Diagnoses Not on filedocumented in this encounter Care Teams Heel Compressor Relationship Specialty Start Date End Date Jossie Patton APRN [address] [place] [address] PCP - General Family Medicine 04/19/20 documented as of this encounter
--- OUTSIDE RECORDS SUMMARY | 2024-02-17 18:35 | XMS_ITS | Encounter Summary ---
Author Organization [facility] [place] [address] Care Team Providers Care Tooling Engineer Name Role Phone Jossie Patton APRN Primary Care Provider [phone] Encounter Details Date Type Department Care Team (Late st Contact Info) Description 08/14/2022 10:40 AM EDT TH Visit (TeleHealth) [place] [phone] Kristi Caicedo APRN [facility] [place] [address] Type 2 diabetes mellitus with hyperglycemia, with [...] Jossie Patton for FOLLOW UP to the [facility] endocrine clinic for diabetes services. This [...] ketones at home. Recent ED Apr 2022. [facility]. ?? Diet Following type of diet: none Carb counting: yes Last visit with pharmacologist: Arabella Diet Recall: B- eggs and coffee [...] Random mg/L <3.0 <3.0 ?? On PHILIPPE/ARB:yes Medical Detail Representative: none ?? Cardio: Patient heart attack in past: no No stroke Aspirin: no No data found. Last cholesterol: ?? Latest Reference Range & Units 05/23/20 08:20 03/23/22 10:45 LDL Chol Direct mg/dL 96 151 ?? Cholesterol medication: crestor ?? Feet: History of Neuropathy: yes Current status of Neuropathy: some intermittent pain in legs and numbness in legs. Gabapentin in past. Candle Extrusion Machine Operator: not discussed ?? Flu Vaccination: 2021 Pneumonia [...] gauge x 1/2 Syringe 1 each by [facility].(Non-Drug; Combo Route) route 6 times daily. Use [...] FOR FIVE DAYS naloxone (Narcan) 4 mg/actuation [place], Non-Aerosol SPRAY 1 SPRAY INTO BOTH NOSTRILS [...] lab order and documentation. Kristi Caicedo DNP, MEMBER SERVICE REPRESENTATIVE-BC, CDE Section of Endocrinology documented in this encounter Plan of Treatment Upcoming Encounters Date Type Department Care Team (Late st Contact Info) Description 02/21/2024 1:40 PM EDT Office Visit [place] [address] Kristi Caicedo APRN [facility] [place] [address] documented as of this encounter Visit Diagnoses Diagnosis Type 2 diabetes mellitus with hyperglycemia, with long-term current use of insulin documented in this encounter Care Teams Tooling Engineer Relationship Specialty Start Date End Date Jossie Patton APRN [address] [place] [address] PCP - General Family Medicine 04/19/20 documented as of this encounter
--- OUTSIDE RECORDS SUMMARY | 2024-02-17 18:35 | XMS_ITS | Encounter Summary ---
[place] [address] Care Team Providers Care Teaching Pastor Name Role Phone Jossie Patton Gabrielle GARCIA Primary Care Provider [phone] Reason for Visit * Reason Onset Date Comments Prior Authorization 05/29/2022 Encounter Details Date Type Department Care Team (Late st Contact Info) Description 05/29/2022 [place] [phone] Kaia Farias Prior Authorization Social History Tobacco [...] 1:40 PM EDT Office [place] [address] Kristi Caicedo APRN [facility] [place] [address] documented as of this encounter Visit Diagnoses Not on filedocumented in this encounter Care Teams Teaching Pastor Relationship Specialty Start Date End Date Jossie Patton APRN [address] [place] [address] PCP - General Family Medicine 04/19/20 documented as of this encounter
--- OUTSIDE RECORDS SUMMARY | 2024-02-17 18:35 | XMS_ITS | Encounter Summary ---
Author Organization [facility] [place] [address] Care Team Providers Care Scallop Raker Name Role Phone Jossie Patton APRN Primary Care Provider Encounter Details Date Type Department Care Team (Late st Contact Info) Description 03/28/2022 [place] [phone] Blas Roach MD [facility] [place] [address] Uncontrolled type 2 diabetes mellitus with hyperglycemia [...] 1:40 PM EDT Office [place] [phone] Kristi Caicedo APRN [facility] [place] [address] documented as of this encounter Visit Diagnoses Diagnosis Uncontrolled type 2 diabetes mellitus with hyperglycemia documented in this encounter Care Teams Scallop Raker Relationship Specialty Start Date End Date Jossie Patton APRN [address] [place] [address] PCP - General Family Medicine 04/19/20 documented as of this encounter
--- OUTSIDE RECORDS SUMMARY | 2024-02-17 18:35 | XMS_ITS | Encounter Summary ---
Author Organization [facility] [place] [address] Care Team Providers Care Culinary Internship Name Role Phone PoojaJossie karimi Gabrielle GARCIA Primary Care Provider [phone] Encounter Details Date Type Department Care Team (Late st Contact Info) Description 07/27/2022 Telephone [place] [phone] Dahiana Perez Social History Tobacco Use Types [...] 11:14 AM I can submit one to [place] Medicaid. Not something we normally do but I can try. * Telephone Encounter - Alexandr Deras RN - 08/09/2022 11:30 AM EDT Ada at [employer] left voicemail wanting an update on patient's in jesus PA. They said they haven't received any paperwork back about if this was approved or denied. If we have an approval, they want it faxed to them at [phone] They said they need a response or patient will be charged $3000+. * Telephone Encounter - Kaia Farias - 07/31/2022 11:00 AM EDT PA for pump would be done by Naartjie Last two office notes routed to [place] [phone] * Telephone Encounter - Dahiana Perez - 07/27/2022 3:20 PM EDT Patient calling to check on authorization on pump? documented in this encounter Plan of Treatment Upcoming Encounters Date Type Department Care Team (Late st Contact Info) Description 02/21/2024 1:40 PM EDT Office [place] [address] Kristi Caicedo APRN [facility] [place] [address] documented as of this encounter Visit Diagnoses Not on filedocumented in this encounter Care Teams Culinary Internship Relationship Specialty Start Date End Date Jossie Patton APRN [address] [place] [address] PCP - General Family Medicine 04/19/20 documented as of this encounter
--- OUTSIDE RECORDS SUMMARY | 2024-02-17 18:35 | XMS_ITS | Encounter Summary ---
Author Organization [place] [address] Care Team Providers Care Shape Brick Molder Name Role Phone Jossie Patton APRN Primary Care Provider [phone] Reason for Visit * Reason Comments Medication Refill Encounter Details Date Type Department Care Team (Late Contact Info) Description 07/03/2023 Ref[place] [phone] [facility] [place] [address] Social History Tobacco Use Types Packs/Day Years [...] 1:40 PM EDT Office [place] [phone] [facility] [place] [address] documented as of this encounter Visit Diagnoses Not on filedocumented in this encounter Care Teams Shape Brick Molder Relationship Specialty Start Date End Date Jossie Patton APRN [address] [place] [address] PCP - General Family Medicine 04/19/20 documented as of this encounter
--- OUTSIDE RECORDS SUMMARY | 2024-02-17 18:35 | XMS_ITS | Encounter Summary ---
Author Organization [facility] [place] [address] Care Team Providers Care Financial Accounting Analyst Name Role Phone Jossie Patton APRN Primary Care Provider [phone] Reason for Visit * Reason Comments Medication Refill Encounter Details Date Type Department Care Team (Late Contact Info) Description 04/13/2023 Refill [place] [phone] Blas Roach MD [facility] [place] [address] Social History Tobacco Use Types Packs/Day Years [...] 1:40 PM EDT Office Visit [place] [phone] Kristi Caicedo APRN [facility] [place] [address] documented as of this encounter Visit Diagnoses Not on filedocumented in this encounter Care Teams Financial Accounting Analyst Relationship Specialty Start Date End Date Jossie Patton APRN [address] [place] [address] PCP - General Family Medicine 04/19/20 documented as of this encounter
--- OUTSIDE RECORDS SUMMARY | 2024-02-17 18:35 | XMS_ITS | Encounter Summary ---
[facility] [place] [address] Care Team Providers Care Plant And Machinery Valuer Name Role Phone Jossie Patton APRN Primary Care Provider [phone] Reason for Visit * Reason Onset Date Comments Medication Refill 12/13/2023 Encounter Details Date Type Department Care Team (Late st Contact Info) Description 12/13/2023 [place] [phone] Kristi Caicedo [facility] [place] [address] Social History Tobacco Use Types Packs/Day Years [...] 1:40 PM EDT Office [place] [phone] Kristi Caicedo [facility] [place] [address] documented as of this encounter Visit Diagnoses Not on filedocumented in this encounter Care Teams Plant And Machinery Valuer Relationship Specialty Start Date End Date Jossie Patton APRN [address] [place] [address] PCP - General Family Medicine 04/19/20 documented as of this encounter
--- OUTSIDE RECORDS SUMMARY | 2024-02-17 18:35 | XMS_ITS | Encounter Summary ---
Author Organization [facility] [place] [address] Care Team Providers Care Occupational Therapy Director Name Role Phone Jossie Patton APRN Primary Care Provider [phone] Encounter Details Date Type Department Care Team (Late st Contact Info) Description 05/16/2022 Orders [place] [phone] Mark Brown MD [facility] [place] [address] Social History Tobacco Use Types Packs/Day Years [...] 1:40 PM EDT Office [place] [address] Kirsti Caicedo APRN [facility] [place] [address] documented as of this encounter Visit Diagnoses Not on filedocumented in this encounter Care Teams Occupational Therapy Director Relationship Specialty Start Date End Date Jossie Patton APRN [address] [place] [address] PCP - General Family Medicine 04/19/20 documented as of this encounter
--- OUTSIDE RECORDS SUMMARY | 2024-02-17 18:35 | XMS_ITS | Encounter Summary ---
Author Organization [facility] [place] [address] Care Team Providers Care Anesthesiologist Assistant Certified Name Role Phone Jossie Patton APRN Primary Care Provider [phone] Reason for Visit * Reason Onset Date Comments Medication Refill 08/06/2023 Encounter Details Date Type Department Care Team (Late st Contact Info) Description 08/06/2023 Refill [place] [address] Kristi Caicedo APRN [facility] [place] [address] Social History Tobacco Use Types Packs/Day Years [...] asking if prescription has been sent to [email or web address]. * Telephone Encounter - Tiaar Wells - 08/07/2023 10:53 AM EDT Patient called to make sure this is sent to [facility] [address] [facility] [address]. The [facility] does not have it in stock. * [...] 1:40 PM EDT Office Visit [place] [address] Kristi Caicedo APRN [facility] [place] [address] documented as of this encounter Visit Diagnoses Not on filedocumented in this encounter Care Teams Anesthesiologist Assistant Certified Relationship Specialty Start Date End Date Jossie Patton APRN [address] [place] [address] PCP - General Family Medicine 04/19/20 documented as of this encounter
--- OUTSIDE RECORDS SUMMARY | 2024-02-17 18:36 | XMS_ITS | Encounter Summary ---
Author Organization [facility] [place] [address] Care Team Providers Care Gerontology Aide Name Role Phone Pooja Jossie Gabrielle GARCIA Primary Care Provider [phone] Encounter Details Date Type Department Care Team (Late st Contact Info) Description 02/26/2022 Telephone Sleep [facility] at [facility] [address] [place] [phone] Nereida Mensah Social History Tobacco Use Types [...] 1:40 PM EDT Office [place] [address] Kristi Caicedo APRN [facility] [place] [address] documented as of this encounter Visit Diagnoses Not on filedocumented in this encounter Care Teams Gerontology Aide Relationship Specialty Start Date End Date Jossie Patton APRN [address] [place] [address] PCP - General Family Medicine 04/19/20 documented as of this encounter
--- OUTSIDE RECORDS SUMMARY | 2024-02-17 18:36 | XMS_ITS | Encounter Summary ---
Author Organization [facility] [place] [address] Care Team Providers Care Quilt Sewer Name Role Phone Jossie Patton Gabrielle GARCIA Primary Care Provider [phone] Encounter Details Date Type Department Care Team (Latest Contact Info) Description 10/11/2021 11:11 AM EDT - 10/11/2021 11:59 PM EDT Hospital Encounter XRay at [address] [place] [address] Geronimo Giron MD [facility] [place] [address] Open fracture of proximal end of right [...] as needed. 06/27/2021 naloxone (Narcan) 4 mg/actuation [place], Non-Aerosol SPRAY 1 SPRAY INTO BOTH NOSTRILS [...] gauge x 3/16 Needle 1 each by [facility].(Non-Drug; Combo Route) route daily. 90 each 3 01/31/2021 10/29/2022 ranitidine (ZANTAC) 150 mg Tablet Take 300 mg by mouth Twice daily. 02/18/2023 metFORMIN (GLUCOPHAGE) 1,000 mg Tablet Take 2,000 mg by mouth daily. 05/16/2014 03/23/2022 documented as of this encounter Plan of Treatment Upcoming Encounters Date Type Department Care Team (Late st Contact Info) Description 02/21/2024 1:40 PM EDT Office [place] [address] Kristi Caicedo APRN [facility] [place] [address] documented as of this encounter Procedures Procedure [...] have questions please contact the health rn coronary care unit that requested your imaging first. ? Narrative [...] who have questions please contactthe health rn coronary care unit that requested your imaging first. Electronically signed by: Wanda Mcnamara MD, [facility]([phone]), at 10/11/2021 1:52 PM Geronimo Giron MD IMG DX ORDERABLES documented in this encounter Visit Diagnoses Diagnosis Open fracture of proximal end of right humerus, unspecified fracture morphology, initial encounter documented in this encounter Care Teams Quilt Sewer Relationship Specialty Start Date End Date Jossie Patton APRN [address] [place] [address] PCP - General Family Medicine 04/19/20 documented as of this encounter
--- OUTSIDE RECORDS SUMMARY | 2024-02-17 18:36 | XMS_ITS | Encounter Summary ---
Author Organization [facility] Address [facility] [place] [address] Care Team Providers Care Die Designer Name Role Phone Jossie aPtton Gabrielle GARCIA Primary Care Provider [phone] Encounter Details Date Type Department Care Team (Latest Contact Info) Description 03/16/2022 1:50 PM EST - 03/16/2022 11:59 PM EST Hospital Encounter XRay at [address] [place] [address] Geronimo Giron MD [facility] [place] [address] Closed fracture of shaft of right humerus [...] as needed. 06/27/2021 naloxone (Narcan) 4 mg/actuation [place], Non-Aerosol SPRAY 1 SPRAY INTO BOTH NOSTRILS [...] gauge x 3/16 Needle 1 each by [facility].(Non-Drug; Combo Route) route daily. 90 each 3 01/31/2021 10/29/2022 ranitidine (ZANTAC) 150 mg Tablet Take 300 mg by mouth Twice daily. 02/18/2023 metFORMIN (GLUCOPHAGE) 1,000 mg Tablet Take 2,000 mg by mouth daily. 05/16/2014 03/23/2022 documented as of this encounter Plan of Treatment Upcoming Encounters Date Type Department Care Team (Late st Contact Info) Description 02/21/2024 1:40 PM EDT Office [place] [address] Kristi Caicedo APRN [facility] [place] [address] documented as of this encounter Procedures Procedure [...] who have questions please contact the health career development facilitator that requested your imaging first. ? Narrative [...] patients who have questions please contactthe health career development facilitator that requested your imaging first. Electronically signed by: Wanda Mcnamara MD, [facility]([phone]), at 03/16/2022 4:52 PM Geronimo Giron MD IMG DX ORDERABLES documented in this encounter Visit Diagnoses Diagnosis Closed fracture of shaft of right humerus with routine healing, unspecified fracture morphology, subsequent encounter documented in this encounter Care Teams Die Designer Relationship Specialty Start Date End Date Jossie Patton APRN [address] [place] [address] PCP - General Family Medicine 04/19/20 documented as of this encounter
--- OUTSIDE RECORDS SUMMARY | 2024-02-17 18:36 | XMS_ITS | Encounter Summary ---
[facility] [place] [address] Care Team Providers Care Freight Car Builder Name Role Phone Belle Pattonily Gabrielle GARCIA Primary Care Provider [phone] Reason for Visit * Auth/Cert Specialty Diagnoses / Procedures Referred By Savannah ashton Referred To Contact Diagnoses Humerus fracture fx humerus ORIF Procedures IPI Madelaine Jenkins MD [facility] [place] [address] [place] Referral ID Status Reason Start Date Expiration Date Visits Re quested Visits Authorized [id number] 1 1 Encounter Details Date Type Department Care Team (Latest Contact Info) Description 09/26/2021 4:39 PM EDT - 09/29/2021 4:21 PM EDT Hospital Encounter [address] [place] [address] Madelaine Jenkins MD [facility] [place] [address] Discharge Disposition: Home Social History Tobacco Use [...] Guzman Jean Patient Age: 46 y.o. Language: Maltese Race: White Ethnicity: Not nor Admit date: 09/26/2021 Discharge date and time: 09/29/2021 Attending Physician: Madelaine Jenkins MD Discharge Physician: Madelaine Jenkins MD Follow-up Recommendations for Providers: See discharge instructions for additional details. Future Appointments Date Time Provider Department Center 10/18/2021 7:45 AM [facility] DX ROOM 1 Xray [facility] Rad 10/18/2021 8:30 AM Geronimo Giron MD [facility] ORTH 3A [facility] Inpatient Provider Contact Information: Madelaine Jenkins MD Orthopedics: [phone] After hours and weekends, call [facility] Floor Molder, , and have the Orthopedic resident paged. [...] 14.5 on 05/16/13-> 29 on 07/07/19) ??? 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 Diet: NPO ?? Isamar Hoff APRN [facility] Endocrinology Diabetes Management Vital Signs at Discharge: [...] questions please contact the health progressive care nurse that requested your imaging first. Pending Studies [...] gauge x 3/16 Ndle 1 each by [facility].(Non-Drug; Combo Route) route daily. 1 each Quantity: [...] 2,000 mg Refills: 0 naloxone 4 mg/actuation [place] Commonly known as: Narcan SPRAY 1 SPRAY [...] HYDROcodone-acetaminophen 5-325 mg Tab Commonly known as: [place] ibuprofen 400 mg Tab Commonly known as: [...] bowel movement. You can also take an kshi-yvx-tzhzezs medication, Miralax if needed to combat constipation. [...] skin and wound problems. Call your doctor ([phone]) if you develop: 1. Fever greater than [...] 1. You will have follow-up appointments at [facility] as indicated in Future Appointment and Orders. [...] Time Provider Department Center 10/18/2021 7:45 AM [facility] DX ROOM 1 Xray [facility] 10/18/2021 8:30 AM Geronimo Giron MD [facility] ORTH [address] [place] [address] If you have questions or concerns: Saturday [...] Provider Department Dept Phone 10/18/2021 7:45 AM [facility] DX ROOM 1 XRay at [facility] Arrive at: Loading Machine Adjuster Area 3T [phone] Please go to [facility] ([facility]). 10/18/2021 8:30 AM Geronimo Giron MD Orthopaedics at [facility] Arrive at: Loading [facility] Area 3A [phone] Primary Care Provider: Jossie Patton APRN [phone] Discharge References/Attachments None documented in this encounter [...] bowel movement. You can also take an qzza-nlk-ttpookk medication, Miralax if needed to combat constipation. [...] skin and wound problems. Call your doctor ([phone]) if you develop: Fever greater than 100.5 [...] 1. You will have follow-up appointments at [facility] as indicated in Future Appointment and Orders. [...] Time Provider Department Center 10/18/2021 7:45 AM [facility] DX ROOM 1 Xray [facility] Rad 10/18/2021 8:30 AM Geronimo Giron MD [facility] ORTH 3A [facility] If you have questions or concerns: Saturday [...] as needed. 06/27/2021 naloxone (Narcan) 4 mg/actuation [place], Non-Aerosol SPRAY 1 SPRAY INTO BOTH NOSTRILS [...] gauge x 3/16 Needle 1 each by [facility].(Non-Drug; Combo Route) route daily. 90 each 3 [...] 12.12) performed by Geronimo Giron MD at [facility] MAIN OR Social History: lives [...] for this consult. SHAZIA GRAHAM, PT Pager: [phone] Physical Therapy Inpatient Rehabilitation Department Time IN [...] outlined in this evaluation. * Isamar Hoff, CANCER PROGRAM COORDINATOR - 09/29/2021 8:45 AM EDT Images from [...] this monring. She was provided with new DSI MET-TECHtronic infusion set and I watched as she managed to place set on her abdomen and load tubing to restart her pump. She should have no issues continuing this at home. She was provided with a new Dexcom CGM with a transmitter for discharge. Agrees to referral to prosthodontist/educator to work on improving carb counting skills upon discharge PLAN 1. Lantus: 35 units today 2. Lispro for correction q 4 hours using ISF 20 for BG > 140 3. Diet: carb controlled 60/60/75 4. Patient will discharge to home diabetes regimen with referral placed for diabetic education to work on carb counting skills. Isamar Hoff APRN [facility] Endocrinology Diabetes Management Pager [phone] 20 minutes of this 35 minute visit [...] 14.5 on 05/16/13-> 29 on 07/07/19) ??? 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 Patient A&O x 3, lungs clear, heart rate regular. Patient has hypoactive bowel sounds and stats their last BM was on [facility]. Patient has a dressing to R arm, [...] eating 4. Diet: NPO Isamar Hoff APRN [facility] Endocrinology Diabetes Management Pager [phone] 20 minutes of this 35 minute visit [...] 14.5 on 05/16/13-> 29 on 07/07/19) ??? 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 NPO at [place] for surgery. Pt with type II DM, [...] PM EDT Assumed care of patient from [id number]. Patient's pain better controlled in that time. Patient endorsing tingling to fingertips. Patient denies chest pain, SOB, nausea. Patient seen by provider around 2129. Nighttime medications given to patient. Patient transferred to room [facility] for safety r/t history of sleep walking. [...] 09/26/2021 5:04 PM EDT [facility] humerus fx s/p fall last [...] 14.5 on 05/16/13-> 29 on 07/07/19) ??? 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 Current Living Arrangements: home/apartment/condo. Accessibility Concerns:pt [...] plan. Office of Care Management Surgery Team Scalp Treatment Specialist Cary MORGAN RN [email or web address] Pager #[phone] * Initial Assessments - Dahiana García, OT [...] 14.5 on 05/16/13-> 29 on 07/07/19) ??? 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 Dahiana García, OTR Pager [phone] Occupational Therapy Rehabilitation Department * Brief Op Note - Jasper Moreno MD - 09/28/2021 9:31 PM EDT Brief Operative Note Patient Name: Guzman Jean : [id number] MR#: [id number] Case Date: 09/28/2021 Surgeon: Surgeon(s) and Role: [...] Giron MD - 09/28/2021 6:25 PM EDT [facility] Operative Note Patient Name: Guzman Jean : [id number] MR#: [id number] Case Date: 09/28/2021 Surgeon: Surgeon(s) and Role: [...] Team, bedside nurse, medical record, and Patient AGRICULTURAL LOAN OFFICER Introduced self/reviewed role; services accepted. Reason for Hospitalization: fell and broke right humerus, needs surgery Covid Vaccination Status: 1st, 2nd & booster Last COVID test: Lab Results Component Value Date [id number] Not Detected 09/26/2021 Past medical History: No past medical history on file. Hospitalizations Within the Past 30 Days: no previous admission in last 30 days Current Decision-Making Capacity: Self Advance Care Planning: Attempt Cardiopulmonary Resuscitation - Inpatient <no information> -Advanced Directive: No, declines If AD's have not been completed Malcom Alonzo would be surrogate decision maker per [place] surrogate decision making law. (Only good for 180 days) Any patient receiving care at [facility] must abide by [place] law. The hierarchy for surrogate decision making [...] (i) The agent with financial power of tax associate attorney or a conservator appointed in accordance [...] with Down Syndrome who lives with pt human resources assistant manager.). Current Living Arrangements: home/apartment/condo. Accessibility Concerns:pt denies accessibility concerns. Resource / Environmental Concerns: Resource/Environmental Concerns: none Current DME: none Home Address confirmed as: [address] [address] Social & Family Supports: All names listed [...] being provided currently: outpatient psychiatric care (Psychiatric CANCER PROGRAM COORDINATOR Aleah Wick) Behavioral Health History: BPD, PTSD, [...] N/A Prescription Coverage: Yes Preferred Pharmacy: [id number] [place], [place] [facility] [place] [address] [address] Status: Patient is a : No Primary Care Provider: Jossie Patton APRN [phone] Patient/Caregiver Goals of Treatment: Pts goal is [...] is primary caregiver for - placed through [facility] Provider program; While she is hospitalized, [...] taking walks both on/off the unit. Plan: AGRICULTURAL LOAN OFFICER will remain available to pt for ongoing support throughout her admission and continue to check in with pt post op. A member of the Care Management team will continue to monitor progress, follow for continuity of care and assist with transition of care planning. MARIEL Mahoney Pager: [phone] * Consult Note - Isamar Hoff APRN [...] management and to provide a review of nursing home diabetes care. RNs are checking BGs and Ryan is administering her own meal time bolus and correction from her pump. Diabetes History: Guzman Jean has a medtronic pump with humalog, takes Trulicity 1.5 mg weekly (last dose last Saturday) and administers Tresiba U 200 50 units daily. She is a patient of the [facility] endocrinology clinic. Current outpatient diabetes regimen: Diabetes [...] Hoff APRN Endocrinology Diabetes Management Service Pager: [phone] 70 minutes of this 80 minute visit [...] 1:40 PM EDT Office Visit Endocrinology at [facility] [place] [id number] Kristi Caicedo APRN [facility] [place] [id number] documented as of this encounter Procedures Procedure [...] shaft fracture Open Fixatn Mid Humerus Fracture (02780) 09/28/2021 5:39 PM EDT Right humeral shaft [...] 09/26/2021 7:45 PM EDT RAPID COVID-19 PCR ([facility]/APD/[facility]) Routine 09/26/2021 5:10 PM EDT documented in this encounter Results * (ABNORMAL) POCT Glucose (09/29/2021 11:27 AM EDT) [facility] Glucose, POC 232(H) 65 - 199 mg/dL [facility] Comment: Supplemental ranges: <140 mg/dL before meals <180 mg/dL all other times of the day Blood 09/29/2021 11:2 7 AM EDT 09/29/2021 11:27 AM EDT Madelaine Jenkins MD POINT OF CARE TEST O RDERABLES [facility] [place] [address] * (ABNORMAL) POCT Glucose (09/29/2021 8:21 AM EDT) Glucose, POC 263(H) 65 - 199 mg/dL [facility] Comment: Supplemental ranges: <140 mg/dL before meals <180 mg/dL all other times of the day Blood 09/29/2021 8:21 AM EDT 09/29/2021 8:21 AM EDT Madelaine Jenkins MD POINT OF CARE TEST O RDERANIYA Performing Organization Address [facility]/ZIP Co de Phone Number [facility] [place] [address] * (ABNORMAL) POCT Glucose (09/29/2021 6:39 AM EDT) Glucose, POC 243(H) 65 - 199 mg/dL [facility] Comment: Supplemental ranges: <140 mg/dL before meals <180 mg/dL all other times of the day Blood 09/29/2021 6:39 AM EDT 09/29/2021 6:39 AM EDT Madelaine Jenkins MD POINT OF CARE TEST O KRZYSZTOF Performing Organization Address [facility] Co de Phone Number [facility] [place] [address] * (ABNORMAL) POCT Glucose (09/29/2021 5:27 AM EDT) Glucose, POC 243(H) 65 - 199 mg/dL [facility] Comment: Supplemental ranges: <140 mg/dL before meals <180 mg/dL all other times of the day Blood 09/29/2021 5:27 AM EDT 09/29/2021 5:27 AM EDT Madelaine Jenkins MD POINT OF CARE TEST O RDERANIYA Performing Organization Address City/[facility]/ZIP Co [place] [address] * (ABNORMAL) Differential, Automated (09/29/2021 3:37 AM EDT) Pathologist [facility] Neutrophil % 70.2 % [facility] Neutrophil Absolute 9.54(H) 1.70 - 6.10 x10(3)/ L [facility] Lymph % 20.7 % [facility] Lymphocytes Abs 2.8 0.9 - 3.2 x10(3)/ L [facility] Monocyte % 8.0 % [facility] Monocyte Abs 1.1(H) 0.3 - 0.9 x10(3)/[facility] Eos % 0.5 % [facility] Eosinophils Abs 0.1 0.0 - 0.4 x10(3)/[facility] Basophil % 0.3 % [facility] Baso Absolute 0.0 0.0 - 0.1 x10(3)/[facility] Immature Gran % 0.30 % [facility] Comment: Immature granulocytes(IG's)percentage and absolute count will include metamyelocytes, myelocytes, and promyelocytes. Blood smears from CBCs yielding IG's will be scanned manually for concordance. If this scan disagrees with the automated IG or if promyelocytes are noted, a manual differential will be performed. Immature Gran Absolute 0.04 0.00 - 0.04 x10(3)/ L [facility] Blood 09/29/2021 3:37 AM EDT 09/29/2021 4:14 AM EDT Narrative Resulting Agency Comment Spec In Lab Demian Whitehead MD HEMATOLOGY [place] [address] * (ABNORMAL) Hemogram (09/29/2021 3:37 AM EDT) [facility] White Blood Cell 13.6(H) 4.0 - 9.5 x10(3)/ L [facility] Red Blood Cell 3.89(L) 4.00 - 5.21 x10(6)/mc L [facility] Hemoglobin 12.5 11.7 - 15.5 g/dL [facility] Hematocrit 36.4 35.7 - 45.8 % [facility] Mean Cell Volume 93.6 82.6 - 94.4 fL [facility] Mean Cell Hemoglobin 32.1(H) 27.1 - 32.0 pg [facility] Mean Cell Hemoglobin Concentration 34.3 31.7 - 35.0 g/dL [facility] Platelet 268 145 - 357 x10(3)/[facility] RDW Standard Deviation 41.5 37.0 - 46.0 [facility] RDW coefficient of variation 12.0 11.5 - 14.1 % [facility] Mean Platelet Volume 9.6 7.6 - 12.9 fL [facility] NRBC% auto 0.0 % [facility] NRBC Absolute 0.000 0.000 - 0.000 x10(3)/[facility] Blood 09/29/2021 3:37 AM EDT 09/29/2021 4:14 AM EDT Narrative Resulting Agency Comment Spec In Lab Demian Whitehead MD HEMATOLOGY ORDERABL ES [facility] [place] [address] * (ABNORMAL) Basic Metabolic Panel (non-fasting) (09/29/2021 3:37 AM EDT) [facility] Glucose 225(H) 65 - 199 mg/dL [facility] Comment:Diabetes: >=200 mg/d L plus symptoms Blood Urea Nitrogen 7(L) 8 - 18 mg/dL [facility] Creatinine 0.56(L) 0.70 - 1.20 mg/dL [facility] Sodium 137 135 - 145 mmol/L [facility] Potassium 4.6 3.5 - 5.0 mmol/L [facility] Comment: result rechecked- Please note: ??Patients with WBC >100,000 may have falsely elevated Potassium levels. ??For accurate Potassium quantification in these patients send serum separator tube (gold top) for subsequent determinations. ??Contact the Clinical Chemistry Laboratory if there are any questions. Chloride 101 98 - 107 mmol/L [facility] Carbon Dioxide 23 22 - 31 mmol/L [facility] Anion Gap 13 5 - 15 mmol/L [facility] Calcium 8.9 8.5 - 10.5 mg/dL [facility] Est Glomerular Filtration Rate 113 >=60 mL/min/1. 73 m?? [facility] Comment: This patient? s estimated [...] In Lab Madelaine Jenkins MD CHEMISTRY ORDERABLES [facility] [place] [address] * XR Humerus Right (Generic) (09/28/2021 10:00 [...] questions please contact the health progressive care nurse that requested your imaging first. ? [...] have questions please contactthe health progressive care nurse that requested your imaging first. Madelaine Jenkins MD IMG DX ORDERABLES * XR Fluoro No Rad <1Hr - OR Use (09/28/2021 9:44 PM EDT) Narrative Dicom, Auditing User - 09/28/2021 9:45 PM EDT This exam is auto-finalizing. No interpretation was done. Madelaine Jenkins MD IMG FLUORO ORDERABLE S * POCT Glucose (09/28/2021 7:05 PM EDT) Glucose, POC 146 65 - 199 mg/dL [facility] Comment: Supplemental ranges: <140 mg/dL before meals <180 mg/dL all other times of the day Blood 09/28/2021 7:05 PM EDT 09/28/2021 7:05 PM EDT Madelaine Jenkins MD POINT OF CARE TEST O RDERANIYA Performing Organization Address [facility]/ZIP Co de Phone Number [facility] [place] [address] * POCT Glucose (09/28/2021 3:44 PM EDT) Glucose, POC 183 65 - 199 mg/dL [facility] Comment: Supplemental ranges: <140 mg/dL before meals <180 mg/dL all other times of the day Blood 09/28/2021 3:44 PM EDT 09/28/2021 3:44 PM EDT Madelaine Jenkins MD POINT OF CARE TEST O RDERABLES [facility] [place] [address] * POCT Glucose (09/28/2021 11:21 AM EDT) Glucose, POC 174 65 - 199 mg/dL [facility] Comment: Supplemental ranges: <140 mg/dL before meals <180 mg/dL all other times of the day Blood 09/28/2021 11:2 1 AM EDT 09/28/2021 11:21 AM EDT Madelaine Jenkins MD POINT OF CARE TEST O RDERABLES Performing Organization Address City/[facility]/ZIP Co de Phone Number [facility] [place] [address] * POCT Glucose (09/28/2021 5:42 AM EDT) [facility] Glucose, POC 91 65 - 199 mg/dL [facility] Comment: Supplemental ranges: <140 mg/dL before meals <180 mg/dL all other times of the day Blood 09/28/2021 5:42 AM EDT 09/28/2021 5:42 AM EDT Madelaine Jenkins MD POINT OF CARE TEST O RDERANIYA Performing Organization Address City/[facility]/ZIP Co de Phone Number [facility] [place] [address] * (ABNORMAL) Differential, Automated (09/28/2021 3:34 AM EDT) [facility] Neutrophil % 47.8 % [facility] Neutrophil Absolute 5.29 1.70 - 6.10 x10(3)/mc L [facility] Lymph % 41.3 % [facility] Lymphocytes Abs 4.6(H) 0.9 - 3.2 x10(3)/mc L [facility] Monocyte % 8.8 % [facility] Monocyte Abs 1.0(H) 0.3 - 0.9 x10(3)/mc L [facility] Eos % 1.2 % [facility] Eosinophils Abs 0.1 0.0 - 0.4 x10(3)/mc L [facility] Basophil % 0.4 % [facility] Baso Absolute 0.0 0.0 - 0.1 x10(3)/mc L [facility] Immature Gran % 0.50 % [facility] Comment: Immature granulocytes(IG's)percentage and absolute count will include metamyelocytes, myelocytes, and promyelocytes. Blood smears from CBCs yielding IG's will be scanned manually for concordance. If this scan disagrees with the automated IG or if promyelocytes are noted, a manual differential will be performed. Immature Gran Absolute 0.05(H) 0.00 - 0.04 x10(3)/mc L [facility] Blood 09/28/2021 3:34 AM EDT 09/28/2021 3:57 AM EDT Narrative Resulting Agency Comment Spec In Lab Nathen Crystal MD HEMATOLOGY ORDERABLE S Performing Organization Address City/State/[facility] Co de Phone Number [facility] [place] [address] * (ABNORMAL) Hemogram (09/28/2021 3:34 AM EDT) White Blood Cell 11.0(H) 4.0 - 9.5 x10(3)/mc L [facility] Red Blood Cell 3.90(L) 4.00 - 5.21 x10(6)/mc L [facility] Hemoglobin 12.8 11.7 - 15.5 g/dL [facility] Hematocrit 37.3 35.7 - 45.8 % [facility] Mean Cell Volume 95.6(H) 82.6 - 94.4 fL [facility] Mean Cell Hemoglobin 32.8(H) 27.1 - 32.0 pg [facility] Mean Cell Hemoglobin Concentration 34.3 31.7 - 35.0 g/dL [facility] Platelet 260 145 - 357 x10(3)/mc L [facility] RDW Standard Deviation 42.8 37.0 - 46.0 fL [facility] RDW coefficient of variation 12.4 11.5 - 14.1 % [facility] Mean Platelet Volume 9.4 7.6 - 12.9 fL [facility] NRBC% auto 0.0 % [facility] NRBC Absolute 0.000 0.000 - 0.000 x10(3)/mc L [facility] Blood 09/28/2021 3:34 AM EDT 09/28/2021 3:57 AM EDT Narrative Resulting Agency Comment Spec In Lab Nathen Crystal MD HEMATOLOGY ORDERABLE S [facility] [place] [address] * (ABNORMAL) Basic Metabolic Panel (non-fasting) (09/28/2021 3:34 AM EDT) Glucose 111 65 - 199 mg/dL [facility] Comment:Diabetes: >=200 mg/d L plus symptoms Blood Urea Nitrogen 10 8 - 18 mg/dL [facility] Creatinine 0.51(L) 0.70 - 1.20 mg/dL [facility] Sodium 137 135 - 145 mmol/L [facility] Potassium 3.3(L) 3.5 - 5.0 mmol/L [facility] Comment: Please note: ??Patients with WBC >100,000 may have falsely elevated Potassium levels. ??For accurate Potassium quantification in these patients send serum separator tube (gold top) for subsequent determinations. ??Contact the Clinical Chemistry Laboratory if there are any questions. Chloride 105 98 - 107 mmol/L [facility] Carbon Dioxide 20(L) 22 - 31 mmol/L [facility] Anion Gap 12 5 - 15 mmol/L [facility] Calcium 8.9 8.5 - 10.5 mg/dL [facility] Est Glomerular Filtration Rate 117 >=60 mL/min/1. 73 m?? [facility] Comment: This patient? s estimated [...] Jenkins MD CHEMISTRY ORDERABLES Performing Organization Address [facility] Co de Phone Number [facility] [place] [address] * (ABNORMAL) POCT Glucose (09/27/2021 11:47 PM EDT) Glucose, POC 230(H) 65 - 199 mg/dL [facility] Comment: Supplemental ranges: <140 mg/dL before meals <180 mg/dL all other times of the day Blood 09/27/2021 11:4 7 PM EDT 09/27/2021 11:47 PM EDT Madelaine Jenkins MD POINT OF CARE TEST O RDERABLES Performing Organization Address [facility] Co de Phone Number [facility] [place] [address] * (ABNORMAL) POCT Glucose (09/27/2021 7:58 PM EDT) Glucose, POC 260(H) 65 - 199 mg/dL [facility] Comment: Supplemental ranges: <140 mg/dL before meals <180 mg/dL all other times of the day Blood 09/27/2021 7:58 PM EDT 09/27/2021 7:58 PM EDT Madelaine Jenkins MD POINT OF CARE TEST O RDERABLES Performing Organization Address City/[facility]/ZIP Co de Phone Number [facility] [place] [address] * POCT Glucose (09/27/2021 2:39 PM EDT) [facility] Glucose, POC 125 65 - 199 mg/dL [facility] Comment: Supplemental ranges: <140 mg/dL before meals <180 mg/dL all other times of the day Blood 09/27/2021 2:39 PM EDT 09/27/2021 2:39 PM EDT Madelaine Jenkins MD POINT OF CARE TEST O KRZYSZTOF Performing Organization Address [facility] Co de Phone Number [facility] [place] [address] * (ABNORMAL) Hemoglobin A1c (09/27/2021 12:27 PM EDT) [facility] Hemoglobin A1c 11.9(H) 4.3 - 5.6 % [facility] 1, S67-74 Estimated Average Glucose 295 mg/dL [facility] Comment: eAG [...] into estimated average glucose values. ??Diabetes Care 2008:31(8):[id number]. Blood 09/27/2021 12:2 7 PM EDT 09/27/2021 12:31 PM EDT Narrative Resulting Agency Comment Spec In Lab Madelaine Jenkins MD CHEMISTRY ORDERABLES Performing Organization Address [facility] Co de Phone Number [facility] [place] [address] * POCT Glucose (09/27/2021 11:29 AM EDT) Glucose, POC 147 65 - 199 mg/dL [facility] Comment: Supplemental ranges: <140 mg/dL before meals <180 mg/dL all other times of the day Blood 09/27/2021 11:2 9 AM EDT 09/27/2021 11:29 AM EDT Madelaine Jenkins MD POINT OF CARE TEST O RDERABLES Performing Organization Address [facility] de Phone Number [facility] [place] [address] * XR Humerus Right (Generic) (09/27/2021 9:09 [...] questions please contact the health progressive care nurse that requested your imaging first. ? Narrative 09/27/2021 11:19 AM EDT EXAMINATION: XR [...] have questions please contactthe health progressive care nurse that requested your imaging first. Madelaine Jenkins MD IMG DX ORDERABLES * POCT Glucose (09/27/2021 7:30 AM EDT) Glucose, POC 114 65 - 199 mg/dL [facility] Comment: Supplemental ranges: <140 mg/dL before meals <180 mg/dL all other times of the day Blood 09/27/2021 7:30 AM EDT 09/27/2021 7:30 AM EDT Madelaine Jenkins MD POINT OF CARE TEST O RDERABLES Performing Organization Address City/[facility]/ZIP Co de Phone Number [facility] [place] [address] * POCT Glucose (09/27/2021 6:48 AM EDT) Glucose, POC 128 65 - 199 mg/dL [facility] Comment: Supplemental ranges: <140 mg/dL before meals <180 mg/dL all other times of the day Blood 09/27/2021 6:48 AM EDT 09/27/2021 6:48 AM EDT Madelaine Jenkins MD POINT OF CARE TEST O RDERABLES [facility] [place] [address] * POCT Glucose (09/27/2021 3:24 AM EDT) Glucose, POC 139 65 - 199 mg/dL [facility] Comment: Supplemental ranges: <140 mg/dL before meals <180 mg/dL all other times of the day Blood 09/27/2021 3:24 AM EDT 09/27/2021 3:24 AM EDT Madelaine Jenkins MD POINT OF CARE TEST O RDERABLES Performing Organization Address City/[facility]/ZIP Co de Phone Number [facility] [place] [address] * Type and Screen Validity (09/27/2021 3:23 AM EDT) T&S only valid at [facility] Comment:This Type and Screen result is only valid at the [facility] Blood 09/27/2021 3:23 AM EDT 09/27/2021 4:08 AM EDT Narrative Resulting Agency Comment Spec In Lab Nathen Crystal MD BLOOD BANK LAB ORDER YOON Performing Organization Address [facility]/ZIP Co de Phone Number [facility] [place] [address] * Scan, Peripheral Blood (09/27/2021 3:23 AM EDT) Plat estimate Normal [facility] RBC Morphology Abnormal [facility] Ovalocytes 1-5 /HPF [facility] Blood 09/27/2021 3:23 AM EDT 09/27/2021 4:00 AM EDT Narrative Resulting Agency Comment Spec In Lab Nathen Crystal MD HEMATOLOGY ORDERABLE S Performing Organization Address City/[facility]/ZIP Co de Phone Number [facility] [place] [address] * ABORH Recheck Status (09/27/2021 3:23 AM EDT) ABORH Recheck Order Order Placed [facility] ABORH Type Recheck Complete [facility] Blood 09/27/2021 3:23 AM EDT 09/27/2021 4:08 AM EDT Narrative Resulting Agency Comment Spec In Lab Nathen Crystal MD BLOOD BANK LAB ORDER YOON Performing Organization Address City/[facility]/ZIP Co de Phone Number [facility] [place] [address] * Antibody screen (09/27/2021 3:23 AM EDT) Ab Screen Interp Negative [facility] Expires at [id number] on: 09/30/2021 [facility] Blood 09/27/2021 3:23 AM EDT 09/27/2021 4:08 AM EDT Narrative Resulting Agency Comment Spec In Lab Nathen Crystal MD BLOOD BANK LAB ORDER YOON Performing Organization Address City/[facility]/ZIP Co de Phone Number [facility] [place] [address] * ABO/Rh Typing (09/27/2021 3:23 AM EDT) Pathologist [facility] ABORH Type A Neg [facility] Blood 09/27/2021 3:23 AM EDT 09/27/2021 4:08 AM EDT Narrative Resulting Agency Comment Spec In Lab Nathen Crystal MD BLOOD BANK LAB ORDER YOON Performing Organization Address City/[facility] Co de Phone Number [facility] [place] [address] * (ABNORMAL) Differential, Automated (09/27/2021 3:23 AM EDT) Neutrophil % 49.7 % [facility] Neutrophil Absolute 5.50 1.70 - 6.10 x10(3)/mc L [facility] Lymph % 40.5 % [facility] Lymphocytes Abs 4.5(H) 0.9 - 3.2 x10(3)/mc L [facility] Monocyte % 7.5 % [facility] Monocyte Abs 0.8 0.3 - 0.9 x10(3)/mc L [facility] Eos % 1.3 % [facility] Eosinophils Abs 0.1 0.0 - 0.4 x10(3)/[facility] Basophil % 0.5 % [facility] Baso Absolute 0.1 0.0 - 0.1 x10(3)/[facility] Immature Gran % 0.50 % [facility] Comment: Immature granulocytes(IG's)percentage and absolute count will include metamyelocytes, myelocytes, and promyelocytes. Blood smears from CBCs yielding IG's will be scanned manually for concordance. If this scan disagrees with the automated IG or if promyelocytes are noted, a manual differential will be performed. Immature Gran Absolute 0.06(H) 0.00 - 0.04 x10(3)/[facility] Blood 09/27/2021 3:23 AM EDT 09/27/2021 4:00 AM EDT Narrative Resulting Agency Comment Spec In Lab Nathen Crystal MD HEMATOLOGY ORDERABLE S [facility] [place] [address] * (ABNORMAL) Hemogram (09/27/2021 3:23 AM EDT) White Blood Cell 11.1(H) 4.0 - 9.5 x10(3)/[facility] Red Blood Cell 4.24 4.00 - 5.21 x10(6)/[facility] Hemoglobin 13.4 11.7 - 15.5 g/dL [facility] Hematocrit 39.5 35.7 - 45.8 % [facility] Mean Cell Volume 93.2 82.6 - 94.4 fL [facility] Mean Cell Hemoglobin 31.6 27.1 - 32.0 pg [facility] Mean Cell Hemoglobin Concentration 33.9 31.7 - 35.0 g/dL [facility] Platelet 275 145 - 357 x10(3)/ L [facility] RDW Standard Deviation 42.5 37.0 - 46.0 [facility] RDW coefficient of variation 12.3 11.5 - 14.1 % [facility] Mean Platelet Volume 9.7 7.6 - 12.9 [facility] NRBC% auto 0.0 % [facility] NRBC Absolute 0.000 0.000 - 0.000 x10(3)/ L [facility] Blood 09/27/2021 3:23 AM EDT 09/27/2021 4:00 AM EDT Narrative Resulting Agency Comment Spec In Lab Nathen Crystal MD HEMATOLOGY ORDERABLE S Performing Organization Address City/[facility]/ZIP Co de Phone Number [facility] [place] [address] * APTT (09/27/2021 3:23 AM EDT) Partial Thromboplastin Time 27 25 - 37 sec [facility] Comment: The PTT is NOT appropriate for heparin monitoring. Use the Anti-Xa level for heparin monitoring (HEP UFH) or LMWH monitoring (HEP LMW). A PTT less than 37 seconds generally indicates adequate hemostasis. Blood 09/27/2021 3:23 AM EDT 09/27/2021 4:00 AM EDT Narrative Resulting Agency Comment Spec In Lab Madelaine Jenkins MD HEMATOLOGY ORDERABLE S [facility] [place] [address] * Prothrombin Time (09/27/2021 3:23 AM EDT) Prothrombin Time 10.6 9.4 - 12.5 sec [facility] International Normalization Ratio 0.9 [facility] Comment: An INR <2.0 indicates [...] Lab Madelaine Jenkins MD HEMATOLOGY ORDERABLE S [facility] [place] [address] * (ABNORMAL) Basic Metabolic Panel (non-fasting) (09/27/2021 3:23 AM EDT) Glucose 138 65 - 199 mg/dL [facility] Comment:Diabetes: >=200 mg/d L plus symptoms Blood Urea Nitrogen 10 8 - 18 mg/dL [facility] Creatinine 0.50(L) 0.70 - 1.20 mg/dL [facility] Sodium 139 135 - 145 mmol/L [facility] Potassium 3.8 3.5 - 5.0 mmol/L [facility] Comment: Please note: ??Patients with WBC >100,000 may have falsely elevated Potassium levels. ??For accurate Potassium quantification in these patients send serum separator tube (gold top) for subsequent determinations. ??Contact the Clinical Chemistry Laboratory if there are any questions. Chloride 107 98 - 107 mmol/L [facility] Carbon Dioxide 20(L) 22 - 31 mmol/L [facility] Anion Gap 12 5 - 15 mmol/L [facility] Calcium 8.9 8.5 - 10.5 mg/dL [facility] Est Glomerular Filtration Rate 118 >=60 mL/min/1. 73 m?? [facility] Comment: This patient? s estimated [...] Jenkins MD CHEMISTRY ORDERABLES Performing Organization Address [facility] Co de Phone Number [facility] [place] [address] * (ABNORMAL) POCT Glucose (09/26/2021 7:45 PM EDT) [facility] Glucose, POC 223(H) 65 - 199 mg/dL [facility] Comment: Supplemental ranges: <140 mg/dL before meals <180 mg/dL all other times of the day Blood 09/26/2021 7:45 PM EDT 09/26/2021 7:45 PM EDT Madelaine Jenkins MD POINT OF CARE TEST O RDERABLES Performing Organization Address [facility] Co de Phone Number [facility] [place] [address] * COVID-19 PCR (09/26/2021 5:10 PM EDT) [facility] SARS-CoV-2 RNA (Rapid) Not Detected Not Detected [facility] Comment: This result should be [...] using the Simplexa COVID-19 Direct Assay by [employer] as authorized by the FDA issued Emergency [...] Pathology and Laboratory Medicine at [facility], certified under the Clinical Laboratory Improvement [...] fact sheets at the following FDA website: https://www.fda.gov/medical-devices/iiqvvfyrlzj-spqglwf-1221-yfjvl-89-jbnzgxkue- use-a mdkxolukbepbc-dtrclob-yyhpkdl/yvtnh-bhcpuhmpklh-vvzv SARS-CoV-2 Source SEWING MACHINE [employer]PERATOR [employer] Swab [facility] Nasopharyngeal Swab 09/27/19 5:10 PM EDT 09/26/2021 7:19 PM EDT Comment:Symptoms->Surveillan ce Narrative Resulting Agency Comment Spec In Lab Madelaine Jenkins MD MICROBIOLOGY - [place] [address] documented in this encounter Visit Diagnoses Diagnosis [...] Megan Bansal RN)1200 (Given - Provider: Wanda Wofle RN) amLODIPine (Norvasc) tablet 10 mg 10 [...] 08 (Given - Provider: Wanda Wolfe RN)1738 ([facility] Hold - Provider: Admin Adt - Reason: Transfer to a Procedural area)2230 ([facility] Unhold - Provider: Admin Adt) 0823 (Given [...] Megan Bansal RN - Reason: Patient/family refused)2230 ([facility] Unhold - Provider: Admin Adt) 0823 (Not Given - Provider: Wanda Wolfe RN - Reason: Patient/family refused) enoxaparin (Lovenox) (40 mg/0.4 mL) subcutaneous injection 40 mg 40 mg, Subcutaneous, NIGHTLY, First dose on 5/31/22 at 2100, Until Discontinued, Routine 2030 (Given - Provider: Tom Fernandez RN) 173 ([facility] Hold - Provider: Admin Adt - Reason: Transfer to a Procedural area)223 ([facility] Unhold - Provider: Admin Adt)224 (Given - Provider: Megan Bansal RN) famotidine (Pepcid) tablet 20 mg 20 mg, Oral, DAILY, First dose on Sat09/26/21 at 2000, Until Discontinued 0816 (Given - Provider: Arlene Feldman LPN) 0809 (Given - Provider: Wanda Wolfe RN)173 ([facility] Hold - Provider: Admin Adt - Reason: Transfer to a Procedural area)223 ([facility] Unhold - Provider: Admin Adt) 0823 (Given [...] RN)1400 (Given - Provider: Wanda Wolfe RN)173 ([facility] Hold - Provider: Admin Adt - Reason: Transfer to a Procedural area)2230 ([facility] Unhold - Provider: Admin Adt)2250 (Given - [...] DAILY, First dose (after last modification) on [facility] 09/30/21 at 0900, Until Discontinued, Please check blood sugar prior to administration and hold if blood sugar is less than 90, Routine insulin lispro (HumaLOG;Admelog) (100 unit/mL) subcutaneous injection vial 1-6 Units(Linked Group 1) 1-6 Units, Subcutaneous, 3 TIMES DAILY BEFORE MEALS, First dose on [facility] 09/28/21 at 1130, Until Discontinued, CORRECTION [...] Bolus (Units))., Medication Name: lispro (Humalog) 1738 ([facility] Hold - Provider: Admin Adt - Reason: Transfer to a Procedural area)2230 ([facility] Unhold - Provider: Admin Adt) ipratropium-albuteroL (Duoneb) 0.5 mg-3 mg(2.5 mg base)/3 mL nebulizer solution 3 mL 3 mL, Nebulization, 4 TIMES DAILY PRN, Starting on Sat09/26/21 at 1905, Until Sat09/29/21 at 1826, Wheezing, Routine 1738 ([facility] Hold - Provider: Admin Adt - Reason: Transfer to a Procedural area)2230 ([facility] Unhold - Provider: Admin Adt) lidocaine (Xylocaine) 1% (10 mg/mL) injection 3 mg 3 mg (0.3 mL), Subcutaneous, ONCE PRN, 1 dose, Starting on Sat09/26/21 at 1908, Until Sat09/29/21 at 1826, for discomfort with PIV insertion, Routine 1738 ([facility] Hold - Provider: Admin Adt - Reason: Transfer to a Procedural area)2230 ([facility] Unhold - Provider: Admin Adt) melatonin tablet 3 mg 3 mg, Oral, NIGHTLY PRN, Starting on Sat09/26/21 at 1910, Until Sat09/29/21 at 1826, Sleep, Routine 2028 (Given - Provider: Tom Fernandez RN) 1738 ([facility] Hold - Provider: Admin Adt - Reason: Transfer to a Procedural area)2230 ([facility] Unhold - Provider: Admin Adt) ondansetron ODT [...] Provider: Arlene Feldman LPN)1135 (Given - Provider: Arelne Feldman LPN)2027 (Given - Provider: Tom Fernandez [...] - Reason: Transfer to a Procedural area)2043 ([facility] Unhold - Provider: Yancy Maria, RN)2049 (See [...] - Reason: Transfer to a Procedural area)2230 ([facility] Unhold - Provider: Admin Adt) vancomycin (Vancocin) [...] Routine documented in this encounter Care Teams Freight Car Builder Relationship Specialty Start Date End Date Jossie Patton APRN [address] [place] [address] PCP - General Family Medicine 04/19/20 documented as of this encounter
--- OUTSIDE RECORDS SUMMARY | 2024-02-17 18:36 | XMS_ITS | Encounter Summary ---
Author Organization [facility] [place] [address] Care Team Providers Care President Practicing Urologist Name Role Phone Jossie Patton Gabrielle GARCIA Primary Care Provider [phone] Reason for Visit * Reason Comments Post Op Encounter Details Date Type Department Care Team (Late st Contact Info) Description 10/11/2021 2:00 PM EDT Office [place] [address] Geronimo Giron MD [facility] [place] [address] Closed fracture of shaft of right humerus [...] 1:40 PM EDT Office [place] [address] Kristi Caicedo APRN [facility] [place] [address] documented as of this encounter Results * [...] who have questions please contact the health resident care manager that requested your imaging first. ? Narrative [...] patients who have questions please contactthe health resident care manager that requested your imaging first. Electronically signed by: Ruthy Euceda MD, [facility]([phone]), at 02/02/2022 2:04 PM Geronimo Giron MD IMG DX ORDERABLES documented in this encounter Visit Diagnoses Diagnosis Closed fracture of shaft of right humerus with routine healing, unspecified fracture morphology, subsequent encounter Closed fracture of shaft of right humerus with routine healing, unspecified fracture morphology, subsequent encounter documented in this encounter Care Teams President Practicing Urologist Relationship Specialty Start Date End Date Jossie Patton APRN [address] [place] [address] PCP - General Family Medicine 04/19/20 documented as of this encounter
--- OUTSIDE RECORDS SUMMARY | 2024-02-17 18:36 | XMS_ITS | Encounter Summary ---
Author Organization [facility] [place] [address] Care Team Providers Care Tree Faller Name Role Phone Pooja, Jossie Gabrielle GARCIA Primary Care Provider [phone] Reason for Visit * Reason Onset Date Comments Medication Refill 10/04/2021 Encounter Details Date Type Department Care Team (Late st Contact Info) Description 10/04/2021 [place] [address] Geronimo Giron MD [facility] [place] [address] Open fracture of proximal end of right [...] Requested Prescription to be sent electronically to [facility] (location). Prescription prepped and pended for Dr. Parish Giron (provider) review. The patient knows how to contact orthopaedics if any further questions or concerns occur. Ellen Williamson RN [facility] Ortho Team documented in this encounter Plan of Treatment Upcoming Encounters Date Type Department Care Team (Late st Contact Info) Description 02/21/2024 1:40 PM EDT Office [place] [address] Kristi Caicedo APRN [facility] [place] [address] documented as of this encounter Visit Diagnoses Diagnosis Open fracture of proximal end of right humerus, unspecified fracture morphology, initial encounter documented in this encounter Care Teams Tree Faller Relationship Specialty Start Date End Date Jossie Patton APRN [address] [place] [address] PCP - General Family Medicine 04/19/20 documented as of this encounter
--- OUTSIDE RECORDS SUMMARY | 2024-02-17 18:36 | XMS_ITS | Encounter Summary ---
[place] [address] Care Team Providers Care Temporary Staff Accountant Name Role Phone Jossie Patton APRN Primary Care Provider [phone] Reason for Referral * Consultation (Routine) - Closed Specialty Diagnoses / Procedures Referred By Savannah t Referred To Contact Endocrinology Diagnoses Uncontrolled type 2 diabetes mellitus with hyperglycemia Isamar Hoff APRN [facility] [place] [address] [facility] [address] [place] [id number] Referral ID Status Reason Start Date Expiration Date V isits Requested Visits Authorized [id number] Closed Consult, Test & Treat 09/29/2021 09/29/2022 1 1 Encounter Details Date Type Department Care Team (Late st Contact Info) Description 09/29/2021 Orders [place] [address] Isamar Hoff APRN [facility] [place] [address] Uncontrolled type 2 diabetes mellitus [...] 1:40 PM EDT Office [place] [address] Kristi Caicedo APRN [facility] [place] [address] Scheduled Referrals Name Type Priority Associated Diagnoses Orde r Schedule Referral to Diabetic Education Outpatient Referral Routine Uncontrolled type 2 diabetes mellitus with hyperglycemia Ordered: 09/29/2021 documented as of this encounter Visit Diagnoses Diagnosis Uncontrolled type 2 diabetes mellitus with hyperglycemia documented in this encounter Care Teams Temporary Staff Accountant Relationship Specialty Start Date End Date Jossie Patton APRN [address] [place] [address] PCP - General Family Medicine 04/19/20 documented as of this encounter
--- OUTSIDE RECORDS SUMMARY | 2024-02-17 18:36 | XMS_ITS | Encounter Summary ---
Author Organization [facility] [place] [address] Care Team Providers Care Manager Winter Name Role Phone Jossie Patton Gabrielle GARCIA Primary Care Provider [phone] Reason for Visit * Reason Onset Date Comments Appointment 11/29/2021 Encounter Details Date Type Department Care Team (Late st Contact Info) Description 11/29/2021 Telephone [place] [address] Geronimo Giron MD [facility] [place] [address] Appointment Social History Tobacco Use Types Packs/Day [...] 1:40 PM EDT Office [place] [address] Kristi Caicedo APRN [facility] [place] [address] documented as of this encounter Visit Diagnoses Not on filedocumented in this encounter Care Teams Manager Winter Relationship Specialty Start Date End Date Jossie Patton APRN [address] [place] [address] PCP - General Family Medicine 04/19/20 documented as of this encounter
--- OUTSIDE RECORDS SUMMARY | 2024-02-17 18:36 | XMS_ITS | Encounter Summary ---
Author Organization Formerly [facility] [place] [address] Care Team Providers Care Validation Engineer Name Role Phone PoojaJossie karimi Gabrielle GARCIA Primary Care Provider [phone] Reason for Visit * Reason Comments Follow-up R HUMERUS FX S/P HIRAL F DOI 09/18/21 DOS 09/28/21 (LAURA) Encounter Details Date Type Department Care Team (Late st Contact Info) Description 02/02/2022 2:30 PM EDT [place] [address] Geronimo Giron MD [facility] [place] [address] Closed fracture of shaft of right humerus [...] 1:40 PM EDT Office [place] [address] Kristi Caicedo APRN [facility] [place] [address] documented as of this encounter Results * [...] who have questions please contact the health pharmacy customer care specialist that requested your imaging first. ? Narrative [...] patients who have questions please contactthe health pharmacy customer care specialist that requested your imaging first. Geronimo Giron MD IMG DX ORDERABLES documented in this encounter Visit Diagnoses Diagnosis Closed fracture of shaft of right humerus with routine healing, unspecified fracture morphology, subsequent encounter Closed fracture of shaft of right humerus with routine healing, unspecified fracture morphology, subsequent encounter documented in this encounter Care Teams Validation Engineer Relationship Specialty Start Date End Date Jossie Patton APRN [address] [place] [address] PCP - General Family Medicine 04/19/20 documented as of this encounter
--- OUTSIDE RECORDS SUMMARY | 2024-02-17 18:36 | XMS_ITS | Encounter Summary ---
[place] [address] Care Team Providers Care National Park Tour Guide Name Role Phone PoojaJossie karimi Gabrielle GARCIA Primary Care Provider [phone] Reason for Visit * Reason Onset Date Comments Medication Refill 10/02/2021 Encounter Details Date Type Department Care Team (Late st Contact Info) Description 10/02/2021 [place] [phone] Ellen Williamson, RN Open fracture of proximal end of [...] back to option 3 Ellen Williamson RN [facility] Ortho Team Medication Refill Request Surgery/Injury/Provider: 09/28/21 [...] Requested Prescription to be sent electronically to [facility] (location). Prescription prepped and pended for Dr. Giron to (provider) review. The patient knows how to contact orthopaedics if any further questions or concerns occur. Ellen Williamson RN [facility] Ortho Team documented in this encounter Plan of Treatment Upcoming Encounters Date Type Department Care Team (Late st Contact Info) Description 02/21/2024 1:40 PM EDT Office Visit Endocrinology at [place] [phone] Kristi Caicedo APRN [facility] [place] [place] [address] documented as of this encounter Visit Diagnoses Diagnosis Open fracture of proximal end of right humerus, unspecified fracture morphology, initial encounter documented in this encounter Care Teams National Park Tour Guide Relationship Specialty Start Date End Date Jossie Patton APRN [address] [place] [address] PCP - General Family Medicine 04/19/20 documented as of this encounter
--- OUTSIDE RECORDS SUMMARY | 2024-02-17 18:36 | XMS_ITS | Encounter Summary ---
Author Organization [facility] [place] [address] Care Team Providers Care Senior Tax Accountant Name Role Phone PoojaJossie karimi Gabrielle GARCIA Primary Care Provider [phone] Encounter Details Date Type Department Care Team (Latest Contact Info) Description 02/02/2022 1:10 PM EDT - 02/02/2022 11:59 PM EDT Hospital Encounter XRay at [address] [place] [address] Geronimo Giron MD [facility] [place] [address] Closed fracture of shaft of right humerus [...] as needed. 06/27/2021 naloxone (Narcan) 4 mg/actuation [place], Non-Aerosol SPRAY 1 SPRAY INTO BOTH NOSTRILS [...] x 3/16 Needle 1 each by [facility].(Non-Drug; Combo Route) route daily. 90 each 3 01/31/2021 10/29/2022 ranitidine (ZANTAC) 150 mg Tablet Take 300 mg by mouth Twice daily. 02/18/2023 metFORMIN (GLUCOPHAGE) 1,000 mg Tablet Take 2,000 mg by mouth daily. 05/16/2014 03/23/2022 documented as of this encounter Plan of Treatment Upcoming Encounters Date Type Department Care Team (Late st Contact Info) Description 02/21/2024 1:40 PM EDT Office [place] [address] Kristi Caicedo APRN [facility] [place] [address] documented as of this encounter Procedures Procedure [...] have questions please contact the health care associate that requested your imaging first. ? Electronically signed by: Ruthy Euceda MD, [facility] ([phone]), at 02/02/2022 2:04 PM Narrative 02/02/2022 2:04 PM EDT EXAMINATION: XR [...] who have questions please contactthe health care associate that requested your imaging first. Electronically signed by: Ruthy Euceda MD, [facility]([phone]), at 02/02/2022 2:04 PM Geronimo Giron MD IMG DX ORDERABLES documented in this encounter Visit Diagnoses Diagnosis Closed fracture of shaft of right humerus with routine healing, unspecified fracture morphology, subsequent encounter documented in this encounter Care Teams Senior Tax Accountant Relationship Specialty Start Date End Date Jossie Patton APRN [address] [place] [address] PCP - General Family Medicine 04/19/20 documented as of this encounter
--- OUTSIDE RECORDS SUMMARY | 2024-02-17 18:36 | XMS_ITS | Encounter Summary ---
Author Organization [facility] [place] [address] Care Team Providers Care Residential Door Unit Installer Name Role Phone Pooja, Jossie Gabrielle GARCIA Primary Care Provider [phone] Reason for Visit * Reason Comments Follow-up Rt elbow/humerus fx s/p ORIF Encounter Details Date Type Department Care Team (Late st Contact Info) Description 03/16/2022 3:00 PM EST Office [place] [address] Geronimo Giron MD [facility] DR [place] [address] Closed fracture of shaft of right humerus [...] 1:40 PM EDT Office [place] [address] Kristi Caicedo APRN [facility] [place] [address] documented as of this encounter Visit Diagnoses Diagnosis Closed fracture of shaft of right humerus with routine healing, unspecified fracture morphology, subsequent encounter documented in this encounter Care Teams Residential Door Unit Installer Relationship Specialty Start Date End Date Jossie Patton APRN [address] [place] [address] PCP - General Family Medicine 04/19/20 documented as of this encounter
--- OUTSIDE RECORDS SUMMARY | 2024-02-17 18:36 | XMS_ITS | Encounter Summary ---
Author Organization [facility] [place] [address] Care Team Providers Care Tank Wagon Driver Name Role Phone Pooja Jossie Gabrielle GARCIA Primary Care Provider [phone] Encounter Details Date Type Department Care Team (Late st Contact Info) Description 03/23/2022 10:00 AM EST Office [place] [address] Blas Roach MD [facility] [place] [address] Uncontrolled type 2 diabetes mellitus with hyperglycemia [...] Roach MD - 03/23/2022 10:00 AM EST [facility] Endocrinology Clinic Follow up Patient Chief [...] , Rfl: ??? naloxone (Narcan) 4 mg/actuation [place], Non-Aerosol, SPRAY 1 SPRAY INTO BOTH NOSTRILS [...] gauge x 3/16 Needle, 1 each by [facility].(Non- Drug; Combo Route) route daily., Disp: 90 each, Rfl: 3 ??? amLODIPine (Norvasc) 10 mg Tablet, Take 10 mg by mouth Daily., Disp: , Rfl: ??? blood sugar diagnostic strips (farmhoppingTouch Verio test strips) Strip, USE TO CHECK [...] documenting in the record. Blas Roach MD Coremaker Supervisorsiderographer Endocrinology Section [facility] documented in this encounter Plan of Treatment Upcoming Encounters Date Type Department Care Team (Late st Contact Info) Description 02/21/2024 1:40 PM EDT Office [place] [address] Kristi Caicedo APRN [facility] [place] [address] documented as of this encounter Procedures Procedure [...] AM EST) LDL Cholesterol, Direct 151 mg/dL [facility] Comment: Lowest Risk: <100 mg/dL Lower Risk: 100-129 mg/dL Borderline High Risk: 130-159 mg/dL High Risk: 160-189 mg/dL Very High Risk: >nb=780 mg/dL Blood 03/23/2022 10:4 5 AM EST 03/23/2022 10:54 AM EST Narrative Resulting Agency Comment Spec In Lab Blas Roach MD CHEMISTRY ORDERABLES Performing Organization Address City/State/[facility] Co de Phone Number [facility] [place] [phone] * (ABNORMAL) Hemoglobin A1c (03/23/2022 10:45 AM EST) Hemoglobin A1c 9.8(H) 4.3 - 5.6 % [facility] Comment: Reference Range: 4.3 [...] 1, S67-74 Estimated Average Glucose 233 mg/dL [facility] Comment: eAG equivalents for [...] into estimated average glucose values. ??Diabetes Care 2008:31(8):6186-7192. Blood 03/23/2022 10:4 5 AM EST 03/23/2022 10:54 AM EST Narrative Resulting Agency Comment Spec In Lab Blas Roach MD CHEMISTRY ORDERABLES [facility] [place] [address] * U Albumin/Cre Ratio (03/23/2022 10:41 AM EST) Albumin / Creatinin Ratio, Urine Not Calculated 0 - 29 mcg/mg Cr [facility] Comment: Reference Ranges: <30 mcg/mg: [...] 2, 357? 362 Albumin, Urine <3.0 mg/L [facility] Creatinine, Urine 50 mg/dL [facility] Urine 03/23/2022 10:4 1 AM EST 03/23/2022 10:47 AM EST Narrative Resulting Agency Comment Spec In Lab Blas Roach MD URINE ORDERABLES Performing Organization Address City/State/[facility] Co de Phone Number [facility] [place] [address] documented in this encounter Visit Diagnoses Diagnosis Uncontrolled type 2 diabetes mellitus with hyperglycemia documented in this encounter Care Teams Tank Wagon Driver Relationship Specialty Start Date End Date Jossie Patton APRN [address] [place] [address] PCP - General Family Medicine 04/19/20 documented as of this encounter
--- OUTSIDE RECORDS SUMMARY | 2024-02-17 18:36 | XMS_ITS | Encounter Summary ---
Author Organization [facility] [place] [address] Care Team Providers Care Product Strategy Director Name Role Phone Jossie Patton APRN Primary Care Provider [phone] Encounter Details Date Type Department Care Team (Late st Contact Info) Description 10/04/2021 Telephone [place] [address] Jossie Roblero, RN Social History [...] 1:40 PM EDT Office [place] [address] Kristi Caicedo APRN [facility] [place] [address] documented as of this encounter Visit Diagnoses Not on filedocumented in this encounter Care Teams Product Strategy Director Relationship Specialty Start Date End Date Jossie Patton APRN [address] [place] [address] PCP - General Family Medicine 04/19/20 documented as of this encounter
--- OUTSIDE RECORDS SUMMARY | 2024-02-17 18:36 | XMS_ITS | Encounter Summary ---
Author Organization [facility] Address [facility] [place] [address] Care Team Providers Care Manager Pipeline Name Role Phone Jossie Patton APRN Primary Care Provider [phone] Reason for Visit * Diagnostic Test (Routine) - Closed Specialty Diagnoses / Procedures Referred By Savannah ashton Referred To Contact Sleep Center Diagnoses KIMBERLEY (obstructive sleep apnea) Sleep walking Enuresis Insomnia, unspecified type Procedures Sleep Study Diagnostic PSG / Split Night PSG Haleigh Cancino DO [facility] [place] [address] [facility] Sleep Medicine [address] [place] [address] Referral ID Status Reason Start Date Expiration Date V isits Requested Visits Authorized [id number] Closed Specialty Service Requested 08/30/2021 08/30/2022 1 1 Encounter Details Date Type Department Care Team (Latest Contact Info) Description 11/20/2021 7:30 PM EDT Procedure visit Sleep Center at [facility] [address] [place] [address] Haleigh Cancino [facility] [place] [address] KIMBERLEY (obstructive sleep apnea) (Primary Dx); Sleep [...] a mild degree (AHI of 7) noted. [facility] AHI of 1.5 which includes only apneas [...] 3. Results were communicated with patient via [facility]. 4. Follow up with PCP regarding tachycardia Haleigh Cancino DO [facility] Sleep Disorders Center REPORT of Diagnostic Polysomnography Patient Name: Guzman Jean Study Date: 11/20/2021 Age & Sex: 46 y.o. Female Height: 5' Date of : 1975 Weight: 195 lbs BMI: 38.1 Referring Provider: Recording Technologist: CLIFFORD ACEVEDO Scoring Technologist: BALAJI MCKEON RRT [facility] Sleep Fellow: Sleep Specialist: HALEIGH CANCINO DO [...] 0.2 Hypopneas & RERAs Hypopnea Definitions: Hypopnea* [facility] Hypopnea AASM Central Hypopneas Hypopneas All RERA [...] 1:40 PM EDT Office [place] [address] Kristi Caicedo APRN [facility] [place] [address] documented as of this encounter Visit Diagnoses Diagnosis KIMBERLEY (obstructive sleep apnea)- Primary Obstructive sleep apnea (adult) (pediatric) Sleep walking Sleep arousal disorder Enuresis Insomnia, unspecified type documented in this encounter Care Teams Manager Pipeline Relationship Specialty Start Date End Date Jossie Patton APRN [address] [place] [address] PCP - General Family Medicine 04/19/20 documented as of this encounter
--- OUTSIDE RECORDS SUMMARY | 2024-02-17 18:36 | XMS_ITS | Encounter Summary ---
Author Organization [facility] [place] [address] Care Team Providers Care Commercial Estimator Name Role Phone Jossie Patton APRN Primary Care Provider [phone] Encounter Details Date Type Department Care Team [...] 1:40 PM EDT Office Visit [place] [address] Kristi Caicedo APRN [facility] [place] [place] [address] documented as of this encounter Visit Diagnoses Not on filedocumented in this encounter Care Teams Commercial Estimator Relationship Specialty Start Date End Date Jossie Ptaton APRN [address] [place] [address] PCP - General Family Medicine 04/19/20 documented as of this encounter
--- OUTSIDE RECORDS SUMMARY | 2024-02-17 18:36 | XMS_ITS | Encounter Summary ---
Author Organization [facility] [place] [address] Care Team Providers Care Firefighter Type One Name Role Phone Jossie Patton APRN Primary Care Provider [phone] Encounter Details Date Type Department Care Team [...] 1:40 PM EDT Office Visit [place] [address] Kristi Caicedo APRN [facility] [place] [place] [address] documented as of this encounter Visit Diagnoses Not on filedocumented in this encounter Care Teams Firefighter Type One Relationship Specialty Start Date End Date Jossie Patton APRN [address] [place] [address] PCP - General Family Medicine 04/19/20 documented as of this encounter
--- OUTSIDE RECORDS SUMMARY | 2024-02-17 18:36 | XMS_ITS | Encounter Summary ---
Author Organization [facility] [place] [address] Care Team Providers Care Doctor Of Nurse Anesthesia Name Role Phone PoojaJossie karimi Gabrielle GARCIA Primary Care Provider [phone] Reason for Visit * Reason Onset Date Comments Questions 03/07/2022 Encounter Details Date Type Department Care Team (Late st Contact Info) Description 03/07/2022 Tele[place] [address] Geronimo Giron MD [facility] [place] [address] Questions Social History Tobacco Use Types Packs/Day [...] proceed. Best number to reach the caller: [phone] documented in this encounter Plan of Treatment Upcoming Encounters Date Type Department Care Team (Late st Contact Info) Description 02/21/2024 1:40 PM EDT Office [place] [address] Kristi Caicedo APRN [facility] [place] [address] documented as of this encounter Visit Diagnoses Not on filedocumented in this encounter Care Teams Doctor Of Nurse Anesthesia Relationship Specialty Start Date End Date Jossie Patton APRN [address] [place] [address] PCP - General Family Medicine 04/19/20 documented as of this encounter
--- OUTSIDE RECORDS SUMMARY | 2024-02-17 18:36 | XMS_ITS | Encounter Summary ---
Author Organization [facility] [place] [address] Care Team Providers Care Bag Builder Name Role Phone PoojaJossie karimi Gabrielle GARCIA Primary Care Provider [phone] Encounter Details Date Type Department Care Team (Late st Contact Info) Description 02/06/2022 Telephone [place] [address] Alexandr Deras RN Social History Tobacco Use [...] 1:40 PM EDT Office [place] [address] Kristi Caicedo APRN [facility] [place] [address] documented as of this encounter Visit Diagnoses Not on filedocumented in this encounter Care Teams Bag Builder Relationship Specialty Start Date End Date Jossie Patton APRN [address] [place] [address] PCP - General Family Medicine 04/19/20 documented as of this encounter
--- OUTSIDE RECORDS SUMMARY | 2024-02-17 18:36 | XMS_ITS | Encounter Summary ---
Author Organization [facility] [place] [address] Care Team Providers Care Sexologist Name Role Phone Pooja, Jossie Gabrielle GARCIA Primary Care Provider Encounter Details Date Type Department Care Team (Late st Contact Info) Description 10/09/2021 Orders [place] [address] Geronimo Giron MD [facility] [place] [address] Open fracture of proximal end of right [...] EDT Office [place] [address] Kristi Caicedo APRN [facility] [place] [address] documented as of this encounter Results * [...] have questions please contact the health pharmacy care coordinator that requested your imaging first. ? Electronically signed by: Wanda Mcnamara MD, [facility] ([phone]), at 10/11/2021 1:52 PM Narrative 10/11/2021 1:52 [...] who have questions please contactthe health pharmacy care coordinator that requested your imaging first. Electronically signed by: Wanda Mcnamara MD, [facility]([phone]), at 10/11/2021 1:52 PM Geronimo Giron MD IMG DX ORDERABLES documented in this encounter Visit Diagnoses Diagnosis Open fracture of proximal end of right humerus, unspecified fracture morphology, initial encounter Open fracture of proximal end of right humerus, unspecified fracture morphology, initial encounter documented in this encounter Care Teams Sexologist Relationship Specialty Start Date End Date Jossie Patton APRN [address] [place] [address] PCP - General Family Medicine 04/19/20 documented as of this encounter
--- OUTSIDE RECORDS SUMMARY | 2024-02-17 18:36 | XMS_ITS | Encounter Summary ---
Author Organization [facility] [place] [address] Care Team Providers Care Food And Nutrition Supervisor Name Role Phone Pooja, Jossie Gabrielle GARCIA Primary Care Provider [phone] Encounter Details Date Type Department Care Team (Late st Contact Info) Description 03/23/2022 [place] [address] Dahiana Perez Uncontrolled type 2 diabetes mellitus [...] 1:40 PM EDT Office [place] [address] Kristi Caicedo APRN [facility] [address] [place] [address] documented as of this encounter Visit Diagnoses Diagnosis Uncontrolled type 2 diabetes mellitus with hyperglycemia documented in this encounter Care Teams Food And Nutrition Supervisor Relationship Specialty Start Date End Date Jossie Patton APRN [address] [place] [address] PCP - General Family Medicine 04/19/20 documented as of this encounter
--- OUTSIDE RECORDS SUMMARY | 2024-02-17 18:36 | XMS_ITS | Encounter Summary ---
Author Organization [facility] [place] [address] Care Team Providers Care Marine Electrician Helper Name Role Phone Jossie Patton RADHA Primary Care Provider [phone] Encounter Details Date Type Department Care Team (Late st Contact Info) Description 02/08/2022 Telephone [place] [address] Bart Muñoz RN Social History Tobacco Use [...] February 08, 2022 Bart Muñoz, RN to [facility] Endocrinology Nurse 4:32 PM Ana needs a call back about this pt (see note). I called back once and was unable to reach her. * Telephone Encounter - Bart Muñoz RN - 02/08/2022 12:13 PM EDT Ana from [facility] left message saying Guzman got a [...] Dexcom. She is referring patient to their intake specialist because patient told her we are booking out into February. However, right now she needs trulicity as she is out of it. Ana is asking us to please fill out out her Trulicity order and she will try to connect pt with their intake specialist. documented in this encounter Plan of Treatment Upcoming Encounters Date Type Department Care Team (Late st Contact Info) Description 02/21/2024 1:40 PM EDT Office [place] [address] Kristi Caicedo APRN [facility] [place] [address] documented as of this encounter Visit Diagnoses Not on filedocumented in this encounter Care Teams Marine Electrician Helper Relationship Specialty Start Date End Date Jossie Patton APRN [address] [place] [address] PCP - General Family Medicine 04/19/20 documented as of this encounter
--- OUTSIDE RECORDS SUMMARY | 2024-02-17 18:37 | XMS_ITS | Encounter Summary ---
[place] [address] Care Team Providers Care Spd Manager Name Role Phone Jossie Patton APRN Primary Care Provider [phone] Reason for Visit * Reason Comments Establish Care NXR- FAIL NON OP SEAN ATMENT - RIGHT HUM FX DOI 09/19/21 * Auth/Cert Specialty Diagnoses / Procedures Referred By Savannah t Referred To Contact Diagnoses Humerus fracture fx humerus ORIF Procedures Madelaine Rasmussen MD [facility] [place] [address] [facility] Referral ID Status Reason Start Date Expiration Date Visits Re quested Visits Authorized [id number] 1 1 Encounter Details Date Type Department Care Team (Late st Contact Info) Description 09/26/2021 1:00 PM EDT Office [place] [address] Closed nondisplaced segmental fracture of shaft of [...] 1:40 PM EDT Office [place] [address] Kristi Caicedo APRN [facility] [place] [address] documented as of this encounter Visit Diagnoses Diagnosis Closed nondisplaced segmental fracture of shaft of right humerus with routine healing, subsequent encounter documented in this encounter Care Teams Spd Manager Relationship Specialty Start Date End Date Jossie Patton APRN [address] [place] [address] PCP - General Family Medicine 04/19/20 documented as of this encounter
--- OUTSIDE RECORDS SUMMARY | 2024-02-17 18:37 | XMS_ITS | Encounter Summary ---
Author Organization [facility] [place] [address] Care Team Providers Care Automation Machine Builder Name Role Phone Jossie Patton APRN Primary Care Provider [phone] Encounter Details Date Type Department Care Team (Late st Contact Info) Description 09/13/2021 Telephone Sleep Center at [facility] [address] [place] [address] Gaby Olvera Social History Tobacco [...] 1:40 PM EDT Office [place] [phone] Kristi Caicedo APRN [facility] [place] [address] documented as of this encounter Visit Diagnoses Not on filedocumented in this encounter Care Teams Automation Machine Builder Relationship Specialty Start Date End Date Jossie Patton APRN [address] [place] [address] PCP - General Family Medicine 04/19/20 documented as of this encounter
--- OUTSIDE RECORDS SUMMARY | 2024-02-17 18:37 | XMS_ITS | Encounter Summary ---
[place] [address] Care Team Providers Care Telephone Service Adviser Name Role Phone Jossie Patton APRN Primary Care Provider [phone] Encounter Details Date Type Department Care Team (Late st Contact Info) Description 11/07/2020 Telephone [place] [phone] Dahiana Perez Social History Tobacco Use Types [...] 1:40 PM EDT Office [place] [phone] Kristi Caicedo APRN [facility] [place] [place] [address] documented as of this encounter Visit Diagnoses Not on filedocumented in this encounter Care Teams Telephone Service Adviser Relationship Specialty Start Date End Date Jossie Patton APRN [address] [place] [address] PCP - General Family Medicine 04/19/20 documented as of this encounter
--- OUTSIDE RECORDS SUMMARY | 2024-02-17 18:37 | XMS_ITS | Encounter Summary ---
Author Organization [facility] [place] [address] Care Team Providers Care Physician Vice President Name Role Phone PoojaJossie karimi Gabrielle GARCIA Primary Care Provider [phone] Encounter Details Date Type Department Care Team (Late st Contact Info) Description 07/22/2020 Telephone [place] [phone] Alexandr Deras RN Social History Tobacco Use [...] 07/22/2020 12:52 PM EDT Labs routed to [facility] lab. * Telephone Encounter - Alexandr Deras RN - 07/22/2020 10:06 AM EDT Patient left voicemail that she needs some specific blood work done so she can get her insulin pump. She wants to have this done at [facility]. Unclear what she said the bloodwork was though. Returned call to patient She says she needs a C-peptide and fasting glucose. documented in this encounter Plan of Treatment Upcoming Encounters Date Type Department Care Team (Late st Contact Info) Description 02/21/2024 1:40 PM EDT Office Visit [place] [address] Kristi Caicedo APRN [facility] [place] [address] documented as of this encounter Visit Diagnoses Diagnosis Type 2 diabetes mellitus, uncontrolled, with neuropathy Type II or unspecified type diabetes mellitus with neurological manifestations, uncontrolled documented in this encounter Care Teams Physician Vice President Relationship Specialty Start Date End Date Jossie Patton APRN [address] [place] [address] PCP - General Family Medicine 04/19/20 documented as of this encounter
--- OUTSIDE RECORDS SUMMARY | 2024-02-17 18:37 | XMS_ITS | Encounter Summary ---
Author [facility] [place] [address] Care Team Providers Care Cardroom Drawing Runner Name Role Phone PoojaJossie karimi Gabrielle GARCIA Primary Care Provider [phone] Encounter Details Date Type Department Care Team (Late st Contact Info) Description 08/30/2020 Tele[place] [address] Alexandr Deras RN Social History Tobacco Use [...] today so she can speak to an residential construction instructor provider. documented in this encounter Plan of Treatment Upcoming Encounters Date Type Department Care Team (Late st Contact Info) Description 02/21/2024 1:40 PM EDT Office [place] [address] Kristi Caicedo APRN [facility] [place] [address] documented as of this encounter Visit Diagnoses Not on filedocumented in this encounter Care Teams Cardroom Drawing Runner Relationship Specialty Start Date End Date Jossie Patton APRN [address] [place] [address] PCP - General Family Medicine 04/19/20 documented as of this encounter
--- OUTSIDE RECORDS SUMMARY | 2024-02-17 18:37 | XMS_ITS | Encounter Summary ---
Author Organization [facility] [place] [address] Care Team Providers Care Parts Cataloger Name Role Phone Jossie Patton RADHA Primary Care Provider [phone] Encounter Details Date Type Department Care Team (Late st Contact Info) Description 09/21/2020 Telephone [place] [phone] Alexandr Deras RN Social History Tobacco Use [...] the original note were not included. Elijah Oneal MD to Me 09/21/20 4:15 PM Ok to see Isamar soon this week or next week, or add to see me next week. ELIJAH ONEAL MD [facility] message to patient after failed attempt to [...] PM EDT Office [place] [address] [facility] [place] [address] documented as of this encounter Visit Diagnoses Not on filedocumented in this encounter Care Teams Parts Cataloger Relationship Specialty Start Date End Date Jossie Patton APRN [address] [place] [address] PCP - General Family Medicine 04/19/20 documented as of this encounter
--- OUTSIDE RECORDS SUMMARY | 2024-02-17 18:37 | XMS_ITS | Encounter Summary ---
Author Organization [facility] [place] [address] Care Team Providers Care Fire Alarm Inspector Name Role Phone Jossie Patton APRN Primary Care Provider [phone] Encounter Details Date Type Department Care Team (Late st Contact Info) Description 01/31/2021 1:45 PM EDT TH Visit (TeleHealth) [place] [address] Isamar Hoff APRN [facility] [place] [address] Uncontrolled type 2 diabetes mellitus with hyperglycemia [...] APRN - 01/31/2021 1:45 PM EDT Plan: [email or web address] Guide - invitation sent to share Dexcom data [...] much better and is able to stop [facility] in summer 2019 with stable mood. She has supportive family and used to see Dedicated Intermodal Truck Driver at [facility] (Tio Ray MD) before switching care to [facility] like her step-mother. ?? She just started [...] with Kristi instead and will call our pattern clerk soon. ?? Review of her previous record [...] soon for A1c and Lipids locally at [facility] lab We will let patient know [...] gauge x 3/16 Needle 1 each by F?rsat Bu F?rsat.(Non-Drug; Combo Route) route daily. cariprazine (Vraylar) 3 [...] by mouth Daily. blood sugar diagnostic strips ([employer] Verio test strips) Strip USE TO CHECK [...] a 45 y.o. female with PMH significant [email or web address] she switched from multiple daily injections to [...] this medicaiton might cause similar SE. Plan: [email or web address] - invitation sent to share Dexcom data [...] and available tests, [facility], counseling the patient on medications, recommending changes to insulin dosing, reviewing management of hypoglycemia, and in prescription management, I have reviewed the plan outlined above with the patient and patient has verbalized understanding. documented in this encounter Plan of Treatment Upcoming Encounters Date Type Department Care Team (Late st Contact Info) Description 02/21/2024 1:40 PM EDT Office [place] [address] Kristi Caicedo APRN [facility] [place] [address] documented as of this encounter Visit Diagnoses Diagnosis Uncontrolled type 2 diabetes mellitus with hyperglycemia documented in this encounter Care Teams Fire Alarm Inspector Relationship Specialty Start Date End Date Jossie Patton APRN [address] [place] [address] PCP - General Family Medicine 04/19/20 documented as of this encounter
--- OUTSIDE RECORDS SUMMARY | 2024-02-17 18:37 | XMS_ITS | Encounter Summary ---
Author Organization [facility] [place] [address] Care Team Providers Care Junior Marketing Associate Name Role Phone Jossie Patton APRN Primary Care Provider [phone] Reason for Referral * Consultation (Routine) - Closed Specialty Diagnoses / Procedures Referred By Savannah ashton Referred To Contact Sleep Center Diagnoses Sleep disorder Jossie Patton APRN [address] [place] [address] [facility] Sleep Medicine [address] [place] [address] Referral ID Status Reason Start Date Expiration Date V isits Requested Visits Authorized [id number] Closed Consult, Test & Treat 06/28/2021 06/28/2022 6 6 Encounter Details Date Type Department Care Team (Late st Contact Info) Description 06/28/2021 [place] [address] Jossie Patton APRN [address] [place] [address] Sleep disorder Social History Tobacco [...] 1:40 PM EDT Office [place] [address] Kristi Caicedo APRN [facility] [place] [address] Scheduled Referrals Name Type Priority Associated Diagnoses Orde r Schedule Referral to Sleep Disorders Center Outpatient Referral Routine Sleep disorder Ordered: 06/28/2021 documented as of this encounter Visit Diagnoses Diagnosis Sleep disorder Sleep disturbance, unspecified documented in this encounter Care Teams Junior Marketing Associate Relationship Specialty Start Date End Date Jossie Patton APRN [address] [place] [address] PCP - General Family Medicine 04/19/20 documented as of this encounter
--- OUTSIDE RECORDS SUMMARY | 2024-02-17 18:37 | XMS_ITS | Encounter Summary ---
Author Organization [facility] [place] [address] Care Team Providers Care Auger Operator Name Role Phone Jossie Patton RADHA Primary Care Provider [phone] Encounter Details Date Type Department Care Team (Late st Contact Info) Description 08/19/2020 Telephone Endocrinology at [facility] [place] [address] [facility] [place] [address] Social History Tobacco Use Types Packs/Day Years [...] 1:40 PM EDT Office Visit [place] [address] Kristi Caicedo APRN [facility] [place] [address] documented as of this encounter Visit Diagnoses Not on filedocumented in this encounter Care Teams Auger Operator Relationship Specialty Start Date End Date Jossie Patton APRN [address] [place] [address] PCP - General Family Medicine 04/19/20 documented as of this encounter
--- OUTSIDE RECORDS SUMMARY | 2024-02-17 18:37 | XMS_ITS | Encounter Summary ---
Author Organization [facility] [place] [address] Care Team Providers Care Bike Technician Name Role Phone Jossie Patton RADHA Primary Care Provider [phone] Encounter Details Date Type Department Care Team (Late st Contact Info) Description 09/08/2020 Telephone [place] [address] Alexandr Deras RN Social History Tobacco Use [...] to Marisol Gibson and Panchito Fan at [facility] sent. Scanned copy of orders also sent [...] 1:40 PM EDT Office [place] [address] Kristi Caicedo APRN [facility] [place] [address] documented as of this encounter Visit Diagnoses Not on filedocumented in this encounter Care Teams Bike Technician Relationship Specialty Start Date End Date Jossie Patton APRN [address] [place] [address] PCP - General Family Medicine 04/19/20 documented as of this encounter
--- OUTSIDE RECORDS SUMMARY | 2024-02-17 18:37 | XMS_ITS | Encounter Summary ---
Author Organization [facility] Address [facility] [place] [address] Care Team Providers Care First Coat Sander Name Role Phone Jossie Patton APRN Primary Care Provider Reason for Referral * Consultation (Urgent) - Closed Specialty Diagnoses / Procedures Referred By Savannah ashton Referred To Contact Sleep Center Diagnoses Sleep disorder PT SEEN 08/29, STILL SLEEP WALKING WHICH RESULTED IN BROKEN ARM Aleah Wick APRN [address] [place] [address] [facility] Sleep Medicine [address] [place] [address] Referral ID Status Reason Start Date Expiration Date V isits Requested Visits Authorized [id number] Closed Consult, Test & Treat PCP Updated and/or Approved 09/19/2021 09/19/2022 6 6 Encounter Details Date Type Department Care Team (Late st Contact Info) Description 09/19/2021 Transcribe Orders eDH Incoming Referrals [phone] Aleah Wick APRN [address] [place] [address] Sleep disorder Social History Tobacco [...] 1:40 PM EDT Office Visit [place] [address] Kristi Caicedo APRN [facility] [place] [address] Scheduled Referrals Name Type Priority Associated Diagnoses Orde r Schedule Referral to Sleep Disorders Center Outpatient Referral Routine Sleep disorder Ordered: 09/19/2021 documented as of this encounter Visit Diagnoses Diagnosis Sleep disorder Sleep disturbance, unspecified documented in this encounter Care Teams First Coat Sander Relationship Specialty Start Date End Date Jossie Patton APRN [address] [place] [address] PCP - General Family Medicine 04/19/20 documented as of this encounter
--- OUTSIDE RECORDS SUMMARY | 2024-02-17 18:37 | XMS_ITS | Encounter Summary ---
Author Organization [facility] [place] [address] Care Team Providers Care Collections Representative Name Role Phone Jossie Patton APRN Primary Care Provider [phone] Reason for Referral * Consultation (Routine) - Closed Specialty Diagnoses / Procedures Referred By Savannah ashton Referred To Contact Endocrinology Diagnoses Type 2 diabetes mellitus, uncontrolled, with neuropathy Elijah Oneal MD [facility] [place] [address] [facility] [place] [address] Referral ID Status Reason Start Date Expiration Date V isits Requested Visits Authorized [id number] Closed Continuity of Care 05/21/2020 05/21/2021 1 1 Reason for Visit * Consultation (Routine) - Closed Specialty Diagnoses / Procedures Referred By Savannah ashton Referred To Contact Endocrinology Diagnoses Hyperglycemia, unspecified Type 2 diabetes mellitus without complications Jossie Patton APRN [address] [place] [address] [facility] [address] [place] [phone] Referral ID Status Reason Start Date Expiration Date V isits Requested Visits Authorized [id number] Closed Consult, Test & [facility] Connection [facility] PCP Updated and/or Approved 03/29/2020 03/29/2021 6 6 Encounter Details Date Type Department Care Team (Latest Contact Info) Description 05/23/2020 9:00 AM EST Office Visit Endocrinology at [facility] [place] [address] Elijah Oneal MD [facility] [place] [address] Type 2 diabetes mellitus, uncontrolled, with neuropathy; [place]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 [facility] Endocrine clinic office Recommendation: 1. Medication: Patient [...] B12 and 25vitamin D at locally at [facility] lab in 2-3 mo prior to [...] Patient: Name: Guzman Jean : 1975 PCP: Jossie Patton APRN Reason for Consult: Guzman Jean [...] on 05/16/13-> 29 on 07/07/19) E55.9 ??? 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 Her 3 daughters are now 6, 12 and 21 yrs oldand she has supportive family and her step-mother is also here with her today. She used to see Absorption And Adsorption Engineer at [facility] (Tio Ray MD) before and wishes to switch her care to [facility] like her step-mother. Current outpatient diabetes regimen: [...] on 05/16/13-> 29 on 07/07/19) E55.9 ??? 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 She has supportive family and her step-mother is also here with her today. She used to see Absorption And Adsorption Engineer at [facility] (Tio Ray MD) before and wishes to switch her care to [facility] like her step-mother. Review of her previous [...] B12 and 25vitamin D at locally at [facility] lab in 2-3 mo prior to [...] juice or regular (not diet) soda 6 [employer] small box of raisins 4 glucose tablets [...] 400 to have your insulin doses adjusted. [facility] Endocrine clinic office documented in this encounter Miscellaneous Notes * Addendum Note - Elijah Oneal MD - 05/23/2020 9:00 AM ESTAddended by: ELIJAH ONEAL on: 05/23/2020 11:45 AM Modules accepted: Orders documented in this encounter Plan of Treatment Upcoming Encounters Date Type Department Care Team (Late st Contact Info) Description 02/21/2024 1:40 PM EDT Office [place] [address] Kristi Caicedo APRN [facility] [address] Scheduled Referrals Name Type Priority Associated Diagnoses Orde r Schedule Referral to Nutrition Services Outpatient Referral Routine Type 2 diabetes mellitus, uncontrolled, with neuropathy Ordered: 05/21/2020 documented as of this encounter Results * U Albumin/Cre Ratio (05/23/2020 8:21 AM EST) Albumin / Creatinin Ratio, Urine Not Calculated 0 - 29 mcg/mg Cr [facility] Comment: Reference Ranges: [...] 2, 357? 362 Albumin, Urine <3.0 mg/L [facility] Creatinine, Urine 62 mg/dL [facility] Urine specimen (specimen) 05/23/2020 8:21 AM EST 05/23/2020 8:36 AM EST Narrative Resulting Agency Comment Spec In Lab Elijah Oneal MD URINE ORDERABLES Performing Organization Address [facility] de Phone Number [facility] [place] [address] * GAD65 Antibody Assay (05/23/2020 8:20 AM EST) Gad65 Ab (AUGUST) 0.00 <=0.02 nmol/L [facility] Comment: ADDITIONAL INFORMATION This test was developed and its performance characteristics determined by [facility] in a manner consistent with CLIA requirements. This test has not been cleared or approved by the U.S. Food and Drug Administration. Test Performed by: [facility] [place] [address] Machine Puller Over: Lloyd Barker M.D. Ph.D.; CLIA# [id number] Blood specimen (specimen) 05/23/2020 8:20 AM EST 05/23/2020 11:14 AM EST Narrative Resulting Agency Comment Spec In Lab Elijah Oneal MD LAB SEND OUT ORDE RABMATT Performing Organization Address City/[facility] Co de Phone Number [facility] [place] [address] * LDL Cholesterol, Direct (05/23/2020 8:20 AM EST) LDL Cholesterol, Direct 96 mg/dL [facility] Comment: Lowest Risk: <100 mg/dL Lower Risk: 100-129 mg/dL Borderline High Risk: 130-159 mg/dL High Risk: 160-189 mg/dL Very High Risk: >ap=130 mg/dL Blood specimen (specimen) 05/23/2020 8:20 AM EST 05/23/2020 8:43 AM EST Narrative Resulting Agency Comment Spec In Lab Elijah Oneal MD CHEMISTRY ORDERAB LES Performing Organization Address City/[facility]/ZIP Co de Phone Number [facility] [place] [address] * TSH (05/23/2020 8:20 AM EST) Thyroid Stimulating Hormone 1.72 0.27 - 4.20 mcIU/mL [facility] Blood specimen (specimen) 05/23/2020 8:20 AM EST 05/23/2020 8:43 AM EST Narrative Resulting Agency Comment Spec In Lab Elijah Oneal MD CHEMISTRY ORDERAB LES Performing Organization Address City/[facility]/ZIP Co de Phone Number [facility] [place] [address] * Vitamin B12 (05/23/2020 8:20 AM EST) Vitamin B12 324 232 - 1,245 pg/mL [facility] Blood specimen (specimen) 05/23/2020 8:20 AM EST 05/23/2020 8:43 AM EST Narrative Resulting Agency Comment Spec In Lab Elijah Oneal MD CHEMISTRY ORDERAB LES Performing Organization Address City/[facility]/ZIP Co de Phone Number [facility] [place] [address] * Vitamin D, 25-Hydroxy (05/23/2020 8:20 AM EST) Vitamin D Total 25 OH 38 21 - 100 ng/mL [facility] Vit D Interp Sufficient [facility] Blood specimen (specimen) 05/23/2020 8:20 AM EST 05/23/2020 8:43 AM EST Narrative Resulting Agency Comment Spec In Lab Elijah Oneal MD CHEMISTRY ORDERAB LES [facility] [place] [address] * (ABNORMAL) Comprehensive metabolic panel (non-fasting) (05/23/2020 8:20 AM EST) Glucose 158 65 - 199 mg/dL [facility] Comment:Diabetes: >=200 mg/d L plus symptoms Blood Urea Nitrogen 11 8 - 18 mg/dL [facility] Creatinine 0.69(L) 0.70 - 1.20 mg/dL [facility] Sodium 138 135 - 145 mmol/L [facility] Potassium 4.3 3.5 - 5.0 mmol/L [facility] Comment: Please note: ??Patients with WBC >100,000 may have falsely elevated Potassium levels. ??For accurate Potassium quantification in these patients send serum separator tube (gold top) for subsequent determinations. ??Contact the Clinical Chemistry Laboratory if there are any questions. Chloride 103 98 - 107 mmol/L [facility] Carbon Dioxide 23 22 - 31 mmol/L [facility] Anion Gap 12 5 - 15 mmol/L [facility] Calcium 9.9 8.5 - 10.5 mg/dL [facility] Protein, Total 7.1 6.1 - 8.0 gm/dL [facility] Albumin 4.7 3.2 - 5.2 gm/dL [facility] Aspartate Aminotransferase 25 0 - 30 unit/L [facility] Alanine Aminotransferase 32(H) 0 - 30 unit/L [facility] Alkaline Phosphatase 78 35 - 105 unit/L [facility] Bilirubin, Total 0.4 0.2 - 1.3 mg/dL [facility] Est Glomerular Filtration Rate 107 >=60 mL/min/1. 73 m?? [facility] Comment: This patient? [...] MD CHEMISTRY ORDERAB LES Performing Organization Address City/[facility]/ZIP Co de Phone Number [facility] [place] [address] * C-peptide (05/23/2020 8:20 AM EST) C-Peptide 1.7 0.8 - 5.2 ng/mL [facility] Blood specimen (specimen) 05/23/2020 8:20 AM EST 05/23/2020 8:43 AM EST Narrative Resulting Agency Comment Spec In Lab Elijah Oneal MD CHEMISTRY ORDERAB LES Performing Organization Address City/[facility] Co de Phone Number [facility] [place] [address] * (ABNORMAL) Hemoglobin A1c (05/23/2020 8:20 AM EST) Hemoglobin A1c 10.0(H) 4.3 - 5.6 % [facility] Comment: Reference Range: [...] Mellitus, Diabetes Care 2013; 36: Suppl. 1, S67-99 Estimated Average Glucose 241 mg/dL [facility] Comment: eAG equivalents [...] into estimated average glucose values. ??Diabetes Care 2008:31(8):8168-7947. 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
--- OUTSIDE RECORDS SUMMARY | 2024-02-17 18:37 | XMS_ITS | Encounter Summary ---
[place] [address] Care Team Providers Care Pit Recorder Name Role Phone Jsosie Patton APRN Primary Care Provider Reason for Referral * Consultation (Routine) - Closed Specialty Diagnoses / Procedures Referred By Contac t Referred To Contact Pain and Spine Center Diagnoses Intervertebral disc disorder with radiculopathy of lumbar region Paul Cordova PA [facility] [place] [address] [facility] [place] [address] Referral ID Status Reason Start Date Expiration Date Visits Requested Visits Authorized [id number] Closed Pain Interventional Procedure 04/10/2022 3 3 Reason for Visit * Reason Comments Back Pain Left Hip Pain * Consultation - Closed Specialty Diagnoses / Procedures Referred By Contac t Referred To [facility] Diagnoses Low back pain, unspecified Trochanteric bursitis, left hip Spine- low back pain/ disc herniation L4-5/ Trochanteric bursitis L hip/ MRI L&P 01/18/21 in [facility] Jossie Patton APRN [address] [place] [address] [facility] [place] [address] Referral ID Status Reason Start Date Expiration Date Visits Re quested Visits Authorized [id number] Closed 02/10/2021 02/10/2022 1 1 Encounter Details Date Type Department Care Team (Latest Contact Info) Description 04/10/2021 9:00 AM EST Office Visit Pain and Spine Center at [facility] [place] [address] Paul Cordova PA [facility] [place] [address] Intervertebral disc disorder with radiculopathy of lumbar [...] the Center for [facility] @ [facility] for evaluation. Chief Complaint: Low back pain, [...] 14.5 on 05/16/13-> 29 on 07/07/19) ??? 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 (TSH 4.4H on [...] EDT Office [place] [address] Kristi Caicedo APRN [facility] [place] [address] Scheduled Referrals Name Type Priority Associated Diagnoses Orde r Schedule Referral to Pain and Spine Center (Internal only) Outpatient Referral Routine Intervertebral disc disorder with radiculopathy of lumbar region Ordered: 04/10/2021 documented as of this encounter Visit Diagnoses Diagnosis Intervertebral disc disorder with radiculopathy of lumbar region Thoracic or lumbosacral neuritis or radiculitis, unspecified documented in this encounter Care Teams Pit Recorder Relationship Specialty Start Date End Date Jossie Patton APRN [address] [place] [address] PCP - General Family Medicine 04/19/20 documented as of this encounter
--- OUTSIDE RECORDS SUMMARY | 2024-02-17 18:37 | XMS_ITS | Encounter Summary ---
[place] [address] Care Team Providers Care Setter Induction Heating Equipment Name Role Phone PoojaJossie karimi Gabrielle GARCIA Primary Care Provider [phone] Reason for Visit * Reason Onset Date Comments Prior Authorization 11/07/2020 Encounter Details Date Type Department Care Team (Late st Contact Info) Description 11/07/2020 [place] [phone] Kaia Farias Prior Authorization Social History Tobacco [...] for request: Type II DM Health plan: [place] Medicaid ([facility]) Authorizing representative phlebotomy services name: Martha Sent to health plan on: 11/08/20 Health plan decision: Approved Quantity approved: 18 per 60 days Authorization number: [id number] Start date: 11/08/20 End date: 05/11/21 * Telephone Encounter - Kaia Farias - 11/07/2020 7:50 AM EDT Received PA for sushil Will complete as soon as possible documented in this encounter Plan of Treatment Upcoming Encounters Date Type Department Care Team (Late st Contact Info) Description 02/21/2024 1:40 PM EDT [place] [address] Kristi Caicedo APRN [facility] [place] [address] documented as of this encounter Visit Diagnoses Not on filedocumented in this encounter Care Teams Setter Induction Heating Equipment Relationship Specialty Start Date End Date Jossie Patton APRN [address] [place] [address] PCP - General Family Medicine 04/19/20 documented as of this encounter
--- OUTSIDE RECORDS SUMMARY | 2024-02-17 18:37 | XMS_ITS | Encounter Summary ---
Author Organization [facility] [place] [address] Care Team Providers Care Hydroelectric Plant Technician Name Role Phone Jossie Patton RADHA Primary Care Provider [phone] Encounter Details Date Type Department Care Team (Latest Contact Info) Description 11/03/2020 9:30 AM EDT TH Visit (TeleHealth) [place] [address] Elijah Oneal MD [facility] [place] [place] [address] Uncontrolled type 2 diabetes mellitus with hyperglycemia; [...] soon for A1c and Lipids locally at [facility] lab We will let patient [...] on 05/16/13-> 29 on 07/07/19) E55.9 ??? 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 Her 3 daughters are now 6, 12 and 21 yrs old and she has supportive family and her step-mother is also having he r medical care here. She used to see Clay Burner at [facility] (Tio Ray MD) before and switched her care to [facility] since Apr 2020. She just started on [...] for further training and will call our typing secretary soon. Current outpatient diabetes regimen: Medications: [...] on 05/16/13-> 29 on 07/07/19) E55.9 ??? 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 ??? blood sugar diagnostic strips ([employer] Verio test strips) Strip USE TO CHECK BLOOD GLUCOSE TWICE DAILY DX E11.9 ??? Blood-Glucose Meter (OneTouch Verio Flex meter) [facility] USE TO CHECK BLOOD [...] visit: BW 220 lb, 5', BP 140/51, [place] 77, RR 12, BMI 43 Appearance: Patient [...] help reduce insulin need. She started on [employer] G6 CGM in Apr 2020 and seen by Isis Chapa RD as well. She is interested in insulin pump as she has been on multiple daily insulin injection 4x/day. She used to have insulin overdose 7 yrs ago and now her BPD is much better and is able to stop [place] in summer 2019 with stable mood. She has supportive family and used to see Clay Burner at [facility] (Tio Ray MD) before switching care to [facility] like her step-mother. She just started on [...] with Kristi instead and will call our typing secretary soon. Review of her previous record [...] soon for A1c and Lipids locally at [facility] lab We will let patient [...] 1:40 PM EDT [place] [address] Kristi Caicedo APRN [facility] [place] [address] documented as of this encounter Visit Diagnoses Diagnosis Uncontrolled type 2 diabetes mellitus with hyperglycemia Dyslipidemia Other and unspecified hyperlipidemia documented in this encounter Care Teams Hydroelectric Plant Technician Relationship Specialty Start Date End Date Jossie Patton APRN [address] [place] [address] PCP - General Family Medicine 12/22/20 documented as of this encounter
--- OUTSIDE RECORDS SUMMARY | 2024-02-17 18:37 | XMS_ITS | Encounter Summary ---
Author Organization [facility] [place] [address] Care Team Providers Care Freight Breaker Name Role Phone Jossie Patton APRN Primary Care Provider [phone] Encounter Details Date Type Department Care Team (Late st Contact Info) Description 01/18/2021 12:05 AM EDT Ancillary Procedure Radiology Library at [facility] [place] [address] Jossie Patton APRN [address] [place] [id number] Social History Tobacco Use Types Packs/Day Years [...] 1:40 PM EDT Office Visit Endocrinology at [facility] [place] [address] Kristi Caicedo APRN [facility] [place] [address] documented as of this encounter Procedures Procedure [...] Patton APRN IMG FILM LIBRARY ORD ERABLES [place], [place] documented in this encounter Visit Diagnoses Not on filedocumented in this encounter Care Teams Freight Breaker Relationship Specialty Start Date End Date Jossie Patton, RADHA [address] [place] [address] PCP - General Family Medicine 04/19/20 documented as of this encounter
--- OUTSIDE RECORDS SUMMARY | 2024-02-17 18:37 | XMS_ITS | Encounter Summary ---
Author [facility] [place] [address] Care Team Providers Care Topographical Surveyor Name Role Phone Pooja Jossie Gabrielle GARCIA Primary Care Provider [phone] Reason for Visit * Reason Comments Pain Management new patient / Brief * Consultation (Routine) - Closed Specialty Diagnoses / Procedures Referred By Contac t Referred To Contact Pain and Spine Center Diagnoses Intervertebral disc disorder with radiculopathy of lumbar region Paul Cordova PA [facility] [place] [address] [facility] [place] [address] Referral ID Status Reason Start Date Expiration Date Visits Requested Visits Authorized [id number] Closed Pain Interventional Procedure 04/10/2022 3 3 Encounter Details Date Type Department Care Team (Late st Contact Info) Description 04/17/2021 3:00 PM EST Office Visit [place] [address] Mame Fuentes MD [facility] [place] [address] Pain in left hip; Groin [...] left hip pain in the past at [facility]. Alberto Moffett MD - 05/21/2012 [address] [facility] PROBLEM: 1. Left hip [...] gauge x 3/16 Needle 1 each by [facility]Non- Drug; Combo Route) route daily. 90 each [...] mouth Daily. ??? blood sugar diagnostic strips ([employer] Verio test strips) Strip USE TO CHECK BLOOD GLUCOSE TWICE DAILY DX E11.9 ??? Blood-Glucose Meter ([employer] Verio Flex meter) Misc USE TO CHECK [...] and pain is ongoing, patient can return [facility] for reevaluation. Mame Fuentes MD Warehouse Record Clerk of Anesthesiology [facility] [address] [address] / [facility] Dr. Fuentes spent 30 minutes of this visit in chart review,coordination of care, counseling and discussion with the patient regarding discussion of imaging, hip pain, exam findings,as detailed above. documented in this encounter Plan of Treatment Upcoming Encounters Date Type Department Care Team (Late st Contact Info) Description 02/21/2024 1:40 PM EDT Office [place] [address] Kristi Caicedo APRN [facility] [place] [address] Scheduled Referrals Name Type Priority Associated Diagnoses [...] limb documented in this encounter Care Teams Topographical Surveyor Relationship Specialty Start Date End Date Jossie Patton APRN [address] [place] [address] PCP - General Family Medicine 04/19/20 documented as of this encounter
--- OUTSIDE RECORDS SUMMARY | 2024-02-17 18:37 | XMS_ITS | Encounter Summary ---
[place] [address] Care Team Providers Care Host/Hostess Restaurant Name Role Phone Opoja, Jossie Gabrielle GARCIA Primary Care Provider [phone] Reason for Visit * Auth/Cert Specialty Diagnoses / Procedures Referred By Savannah ashton Referred To Contact Diagnoses Humerus fracture fx humerus ORIF Procedures ELIZABETHI Madelaine Jenkins MD [facility] [place] [address] RUST Referral ID Status Reason Start Date Expiration Date Visits Re quested Visits Authorized [id number] 1 1 Encounter Details Date Type Department Care Team (Late st Contact Info) Description 09/28/2021 2:23 PM EDT - 09/28/2021 4:24 PM EDT Surgery [place] [address] Geronimo Giron MD [facility] [place] [address] ORIF HUMERAL SHAFT FX. (WRVU 12.12) Social [...] Guzman Jean Patient Age: 46 y.o. Language: Yi Race: White Ethnicity: Not nor Admit date: 09/26/2021 Discharge date and time: 09/29/2021 Attending Physician: Maedlaine Jenkins MD Discharge Physician: Madelaine Jenkins MD Follow-up Recommendations for Providers: See discharge instructions for additional details. Future Appointments Date Time Provider Department Center 10/18/2021 7:45 AM [facility] DX ROOM 1 [facility]ray [facility] Rad 10/18/2021 8:30 AM Geronimo Giron MD [facility] ORTH 3A [facility] Inpatient Provider Contact Information: Madelaine Jenkins MD Orthopedics: [phone] After hours and weekends, call [facility] Hide And Skin Classer, , and have the Orthopedic resident paged. [...] 14.5 on 05/16/13-> 29 on 07/07/19) ??? Purvis-induced hypothyroidism and transient hypercalcemia (TSH 4.4H on [...] who have questions please contact the health insurance healthcare representative that requested your imaging first. Electronically signed by: Wanda Mcnamara MD, [facility] ([phone]), at 09/27/2021 11:19 AM Pending Studies and [...] Daily. 10 mg Refills: 0 Blood-Glucose Meter [facility] USE TO CHECK BLOOD GLUCOSE TWICE [...] gauge x /16 Ndle 1 each by [facility].(Non-Drug; Combo Route) route daily. 1 each [...] 2,000 mg Refills: 0 naloxone 4 mg/actuation [place] Commonly known as: Narcan SPRAY 1 SPRAY [...] HYDROcodone-acetaminophen 5-325 mg Tab Commonly known as: [place] ibuprofen 400 mg Tab Commonly known as: [...] bowel movement. You can also take an zebg-fae-hjutfeq medication, Miralax if needed to combat constipation. [...] skin and wound problems. Call your doctor ([phone]) if you develop: 1. Fever greater than [...] Time Provider Department Center 10/18/2021 7:45 AM [facility] DX ROOM 1 Xray [facility] 10/18/2021 8:30 AM Geronimo Giron MD [...] Provider Department Dept Phone 10/18/2021 7:45 AM [facility] DX ROOM 1 XRay at [facility] Arrive at: Inside B2[employer] Sales Area 3T [phone] Please go to [facility] [facility] 3T ([facility]). 10/18/2021 8:30 AM Geronimo Giron MD Orthopaedics at [facility] Arrive at: Inside [employer] Sales Area 3A [phone] Primary Care Provider: Jossie Patton APRN [phone] Discharge References/Attachments None documented in this encounter [...] bowel movement. You can also take an mmnj-dtj-wtkrtdz medication, Miralax if needed to combat constipation. [...] skin and wound problems. Call your doctor ([phone]) if you develop: Fever greater than 100.5 [...] Time Provider Department Center 10/18/2021 7:45 AM [facility] DX ROOM 1 Xray [facility] Rad 10/18/2021 8:30 AM Geronimo Giron MD [...] as needed. 06/27/2021 naloxone (Narcan) 4 mg/actuation [place], Non-Aerosol SPRAY 1 SPRAY INTO BOTH NOSTRILS [...] mouth Daily. 07/20/2019 blood sugar diagnostic strips ([employer]Touch Verio test strips) Strip USE TO CHECK [...] gauge x 3/16 Needle 1 each by [facility].(Non-Drug; Combo Route) route daily. 90 each [...] 12.12) performed by Geronimo Giron MD at [facility] MAIN OR Social History: lives with her [...] this consult. LUIS EDUARDO GRAHAM, PT Pager: [phone] Physical Therapy Inpatient Rehabilitation Department Time IN [...] outlined in this evaluation. * Isamar Hoff, BEAM CARRIER HAULER PUSHER - 09/29/2021 8:45 AM EDT Images from [...] this monring. She was provided with new Lysttronic infusion set and I watched as she managed to place set on her abdomen and load tubing to restart her pump. She should have no issues continuing this at home. She was provided with a new Dexcom CGM with a transmitter for discharge. Agrees to referral to life skills educator to work on improving carb counting [facility] Management Pager [phone] 20 minutes of this 35 minute visit [...] 14.5 on 05/16/13-> 29 on 07/07/19) ??? Purvis-induced hypothyroidism and transient hypercalcemia (TSH 4.4H on [...] able to extend and abduct thumb, strong lacing string cutter (m/u/r/AIN/PIN intact) Brisk capillary refill distally, fingers [...] Time Provider Department Center 10/18/2021 7:45 AM [facility] DX ROOM 1 MH Xray [facility] Rad 10/18/2021 8:30 AM Geronimo Giron MD [...] 14.5 on 1/18/14-> 29 on 07/07/19) ??? Purvis-induced hypothyroidism and transient hypercalcemia (TSH 4.4H on [...] able to extend and abduct thumb, strong lacing string cutter Brisk capillary refill distally, fingers warm/well-perfused, radial [...] Time Provider Department Center 10/18/2021 7:45 AM [facility] DX ROOM 1 MH Xray [facility] Rad 10/18/2021 8:30 AM Geronimo Giron MD [facility] ORTH 3A [facility] * Megan Bansal RN - 09/28/2021 10:34 PM EDT Patient arrived to floor via bed from PACU. Patient A&O x 3, lungs clear, heart rate regular. Patient has hypoactive bowel sounds and stats their last BM was on PROGRAM ELIGIBILITY SPECIALIST. Patient has a dressing to R arm, [facility] End[facility] Diabetes Management Pager [phone] 20 minutes of this 35 minute visit [...] 14.5 on 05/16/13-> 29 on 07/07/19) ??? Purvis-induced hypothyroidism and transient hypercalcemia (TSH 4.4H on [...] 14.5 on 05/16/13-> 29 on 07/07/19) ??? Purvis-induced hypothyroidism and transient hypercalcemia (TSH 4.4H on [...] right humerus today, time unknown. NPO at [place] for surgery. Pt with type II DM, [...] PM EDT Assumed care of patient from [phone]. Patient's pain better controlled in that time. [...] 09/26/2021 5:04 PM EDT [facility] for R humerus fx s/p fall last Saturday. Pt ambulated to roomwithout difficulty. Pt is currently wearing a sling. Pt A&O, VSS on RA. Pt reports significant pain + spasms to RUE. 2+ edema noted. Pt reports numbness/ tingling, 2+ radial pulse. Red rash with pustules noted to R upper arm in band-like formation. Eyv Crystal MD paged for order reconciliation. Pt [...] 14.5 on 05/16/13-> 29 on 07/07/19) ??? 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 Current Living Arrangements: home/apartment/condo. Accessibility Concerns:pt denies [...] plan. Office of Care Management Surgery Team Erp Consultant Cary [email or web address] Pager #[phone] * Initial Assessments - Dahiana García, OT [...] 14.5 on 05/16/13-> 29 on 07/07/19) ??? Purvis-induced hypothyroidism and transient hypercalcemia (TSH 4.4H on [...] of functional outcome. Dahiana García, MILANR Pager [phone] Occupational Therapy Rehabilitation Department * Brief Op Note - Jasper Moreno MD - 09/28/2021 9:31 PM EDT Brief Operative Note Patient Name: Guzman Jean : [id number] MR#: [id number] Case Date: 09/28/2021 Surgeon: Surgeon(s) and Role: [...] Operative Note Patient Name: Guzman Jean : [id number] MR#: [id number] Case Date: 09/28/2021 Surgeon: Surgeon(s) and Role: [...] Management Initial Assessment Simon A Ana Cristina, DIVORCE LAWYER reviewed record and discussed patient with Care Team. Source of Information: Team, bedside nurse, medical record, and Patient DIVORCE LAWYER Introduced self/reviewed role; services accepted. Reason for Hospitalization: fell and broke right humerus, needs surgery Covid Vaccination Status: 1st, 2nd & booster Last COVID test: Lab Results Component Value Date [id number] Not Detected 09/26/2021 Past medical History: No past medical history on file. Hospitalizations Within the Past 30 Days: no previous admission in last 30 days Current Decision-Making Capacity: Self Advance Care Planning: Attempt Cardiopulmonary Resuscitation - Inpatient <no information> -Advanced Directive: No, declines If AD's have not been completed Malcom Alonzo would be surrogate decision maker per [place] surrogate decision making law. (Only good for 180 days) Any patient receiving care at [facility] must abide by [place] law. 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 Current Living Arrangements: home/apartment/condo. Accessibility Concerns:pt denies accessibility concerns. Resource / Environmental Concerns: Resource/Environmental Concerns: none Current DME: none Home Address confirmed as: [address] [address] Social & Family Supports: All names listed [...] being provided currently: outpatient psychiatric care (Psychiatric BEAM CARRIER HAULER PUSHER Aleah Wick) Behavioral Health History: BPD, PTSD, [...] Insurance: N/A Prescription Coverage: Yes Preferred Pharmacy: [facility]/pharmacy #[id number] [place], [place] [facility] [address] [place] Status: Patient is a : No Primary Care Provider: Jossie Patton APRN [phone] Patient/Caregiver Goals of Treatment: Pts goal is [...] is primary caregiver for - placed through [facility] Home [facility] program; While she is hospitalized, [...] taking walks both on/off the unit. Plan: DIVORCE LAWYER will remain available to pt for ongoing support throughout her admission and continue to check in with pt post op. A member of the Care Management team will continue to monitor progress, follow for continuity of care and assist with transition of care planning. MARIEL Mahoney Pager: [phone] * Consult Note - Isamar Hoff APRN [...] management and to provide a review of [facility] diabetes care. RNs are checking BGs and [...] Hoff APRN Endocrinology Diabetes Management Service Pager: [phone] 70 minutes of this 80 minute visit [...] 1:40 PM EDT Office Visit Endocrinology [place] [address] Kristi Caicedo APRN [facility] [place] [address] [place] [address] documented as of this encounter Procedures Procedure [...] shaft fracture Open Fixatn Mid Humerus Fracture (61112) 09/28/2021 5:39 PM EDT Right humeral shaft [...] 09/26/2021 7:45 PM EDT RAPID COVID-19 PCR ([facility]) Routine 09/26/2021 5:10 PM EDT documented in this encounter Results * (ABNORMAL) POCT Glucose (09/29/2021 11:27 AM EDT) [facility] Signature Glucose, POC 232(H) 65 - 199 mg/dL [facility] Comment: Supplemental ranges: <140 mg/dL before meals <180 mg/dL all other times of the day Blood 09/29/2021 11:2 7 AM EDT 09/29/2021 11:27 AM EDT Madelaine Jenkins MD POINT OF CARE TEST O RDERABLES [facility] [place] [address] * (ABNORMAL) POCT Glucose (09/29/2021 8:21 AM EDT) Glucose, POC 263(H) 65 - 199 mg/dL [facility] Comment: Supplemental ranges: <140 mg/dL before meals <180 mg/dL all other times of the day Blood 09/29/2021 8:21 AM EDT 09/29/2021 8:21 AM EDT Madelaine Jenkins MD POINT OF CARE TEST O RDERABLES Performing Organization Address [facility] Co de Phone Number [facility] [place] [address] * (ABNORMAL) POCT Glucose (09/29/2021 6:39 AM EDT) Glucose, POC 243(H) 65 - 199 mg/dL [facility] Comment: Supplemental ranges: <140 mg/dL before meals <180 mg/dL all other times of the day Blood 09/29/2021 6:39 AM EDT 09/29/2021 6:39 AM EDT Madelaine Jenkins MD POINT OF CARE TEST O RDERANIYA Performing Organization Address [facility] Co de Phone Number [facility] [place] [place] [address] * (ABNORMAL) POCT Glucose (09/29/2021 5:27 AM EDT) Glucose, POC 243(H) 65 - 199 mg/dL [facility] Comment: Supplemental ranges: <140 mg/dL before meals <180 mg/dL all other times of the day Blood 09/29/2021 5:27 AM EDT 09/29/2021 5:27 AM EDT Madelaine Jenkins MD POINT OF CARE TEST O RDERABLES [facility] [place] [place] [address] * (ABNORMAL) Differential, Automated (09/29/2021 3:37 AM EDT) Neutrophil % 70.2 % [facility] Neutrophil Absolute 9.54(H) 1.70 - 6.10 x10(3)/ L [facility] Lymph % 20.7 % [facility] Lymphocytes Abs 2.8 0.9 - 3.2 x10(3)/ L [facility] Monocyte % 8.0 % [facility] Monocyte Abs 1.1(H) 0.3 - 0.9 x10(3)/[facility] Eos % 0.5 % [facility] Eosinophils Abs 0.1 0.0 - 0.4 x10(3)/[facility] Basophil % 0.3 % [facility] Baso Absolute 0.0 0.0 - 0.1 x10(3)/ L [facility] Immature Gran % 0.30 % [facility] [...] MD HEMATOLOGY ORDERABL ES Performing Organization Address [facility]/ZIP Co de Phone Number [facility] [place] [place] [address] * (ABNORMAL) Hemogram (09/29/2021 3:37 AM EDT) [facility] White Blood Cell 13.6(H) 4.0 - 9.5 x10(3)/mc L [facility] Platelet 268 145 - 357 x10(3)/[facility] RDW Standard Deviation 41.5 37.0 - 46.0 [facility] RDW coefficient of variation 12.0 11.5 - 14.1 % [facility] Mean Platelet Volume 9.6 7.6 - 12.9 fL [facility] NRBC% auto 0.0 % [facility] NRBC Absolute 0.000 0.000 - 0.000 x10(3)/ L [facility] Blood 09/29/2021 3:37 AM EDT 09/29/2021 4:14 AM EDT Narrative Resulting Agency Comment Spec In Lab Demian Whitehead MD HEMATOLOGY ORDERABL ES [facility] [place] [place] [address] * (ABNORMAL) Basic Metabolic Panel (non-fasting) (09/29/2021 3:37 AM EDT) [facility] Glucose 225(H) 65 - 199 mg/dL GR[facility] [...] MD CHEMISTRY ORDERABLES [facility] [place] [address] * XR Humerus Right (Generic) (09/28/2021 10:00 [...] who have questions please contact the health insurance healthcare representative that requested your imaging first. ? Narrative [...] patients who have questions please contactthe health insurance healthcare representative that requested your imaging first. Madelaine Jenkins [...] MD POINT OF CARE TEST O RDERANIYA [facility] [place] [address] * POCT Glucose (09/28/2021 3:44 PM EDT) Glucose, POC 183 65 - 199 mg/dL [facility] Comment: Supplemental ranges: <140 mg/dL before meals <180 mg/dL all other times of the day Blood 09/28/2021 3:44 PM EDT 09/28/2021 3:44 PM EDT Madelaine Jenkins MD POINT OF CARE TEST O RDERABLES [facility] [place] [address] * POCT Glucose (09/28/2021 11:21 AM EDT) Glucose, POC 174 65 - 199 mg/dL [facility] Comment: Supplemental ranges: <140 mg/dL before meals <180 mg/dL all other times of the day Blood 09/28/2021 11:2 1 AM EDT 09/28/2021 11:21 AM EDT Madelaine Jenkins MD POINT OF CARE TEST O RDERABLES Performing Organization Address City/[facility]/ZIP Co de Phone Number [facility] [place] [address] * POCT Glucose (09/28/2021 5:42 AM EDT) Glucose, POC 91 65 - 199 mg/dL [facility] Comment: Supplemental ranges: <140 mg/dL before meals <180 mg/dL all other times of the day Blood 09/28/2021 5:42 AM EDT 09/28/2021 5:42 AM EDT Madelaine Jenkins MD POINT OF CARE TEST O RDERABLES Performing Organization Address City/[facility]/ZIP Co de Phone Number [facility] [place] [place] [address] * (ABNORMAL) Differential, Automated (09/28/2021 3:34 AM EDT) Neutrophil % 47.8 % [facility] Neutrophil Absolute 5.29 1.70 - 6.10 x10(3)/mc L [facility] Lymph % 41.3 % [facility] Lymphocytes Abs 4.6(H) 0.9 - 3.2 x10(3)/mc L [facility] Monocyte % 8.8 % [facility] Monocyte Abs 1.0(H) 0.3 - 0.9 x10(3)/mc L [facility] Eos % 1.2 % [facility] Eosinophils Abs 0.1 0.0 - 0.4 x10(3)/mc L [facility] Basophil % 0.4 % [facility] Baso Absolute 0.0 0.0 - [...] HEMATOLOGY ORDERABLE S [facility] [place] [address] * (ABNORMAL) Hemogram (09/28/2021 3:34 AM EDT) White Blood Cell 11.0(H) 4.0 - 9.5 x10(3)/ L [facility] NRBC% auto 0.0 % [facility] NRBC Absolute 0.000 0.000 - 0.000 x10(3)/mc L [facility] Blood 09/28/2021 3:34 AM EDT 09/28/2021 3:57 AM EDT Narrative Resulting Agency Comment Spec In Lab Nathen Crystal MD HEMATOLOGY ORDERABLE S [facility] [place] [address] * (ABNORMAL) Basic Metabolic Panel (non-fasting) (09/28/2021 [...] Jenkins MD CHEMISTRY ORDERABLES Performing Organization Address [facility] Co de Phone Number [facility] [place] [address] * (ABNORMAL) POCT Glucose (09/27/2021 11:47 PM EDT) Glucose, POC 230(H) 65 - 199 mg/dL [facility] Comment: Supplemental ranges: <140 mg/dL before meals <180 mg/dL all other times of the day Blood 09/27/2021 11:4 7 PM EDT 09/27/2021 11:47 PM EDT Madelaine Jenkins MD POINT OF CARE TEST O RDERABLES Performing Organization Address [facility]/ZIP Co de Phone Number [facility] [place] [place] [address] * (ABNORMAL) POCT Glucose (09/27/2021 7:58 PM EDT) Glucose, POC 260(H) 65 - 199 mg/dL [facility] Comment: Supplemental ranges: <140 mg/dL before meals <180 mg/dL all other times of the day Blood 09/27/2021 7:58 PM EDT 09/27/2021 7:58 PM EDT Madelaine Jenkins MD POINT OF CARE TEST O RDERABLES Performing Organization Address City/[facility]/ZIP Co de Phone Number [facility] [place] [address] * POCT Glucose (09/27/2021 2:39 PM EDT) Glucose, POC 125 65 - 199 mg/dL [facility] Comment: Supplemental ranges: <140 mg/dL before meals <180 mg/dL all other times of the day Blood 09/27/2021 2:39 PM EDT 09/27/2021 2:39 PM EDT Madelaine Jenkins MD POINT OF CARE TEST O KRZYSZTOF Performing Organization Address [facility]/ZIP Co de Phone Number [facility] [place] [place] [address] * (ABNORMAL) Hemoglobin A1c (09/27/2021 12:27 PM EDT) Pathologist [facility] Hemoglobin A1c 11.9(H) 4.3 - 5.6 % [...] Mellitus, Diabetes Care 2013; 36: Suppl. 1, R57-31 Estimated Average Glucose 295 mg/dL [facility] [...] into estimated average glucose values. ??Diabetes Care 2008:31(8):0981-1324. Blood 09/27/2021 12:2 7 PM EDT 09/27/2021 12:31 PM EDT Narrative Resulting Agency Comment Spec In Lab Madelaine Jenkins MD CHEMISTRY ORDERABLES Performing Organization Address [facility] de Phone Number [facility] [place] [address] * POCT Glucose (09/27/2021 11:29 AM EDT) Glucose, POC 147 65 - 199 mg/dL [facility] Comment: Supplemental ranges: <140 mg/dL before meals <180 mg/dL all other times of the day Blood 09/27/2021 11:2 9 AM EDT 09/27/2021 11:29 AM EDT Madelaine Jenkins MD POINT OF CARE TEST O RDERABLES Performing Organization Address [facility] de Phone Number [facility] [place] [address] * XR Humerus Right (Generic) (09/27/2021 9:09 [...] who have questions please contact the health insurance healthcare representative that requested your imaging first. ? Electronically signed by: Wanda Mcnamara MD, [facility] ([phone]), at 09/27/2021 11:19 AM Narrative 09/27/2021 11:19 [...] patients who have questions please contactthe health insurance healthcare representative that requested your imaging first. Electronically signed by: Wanda Mcnamara MD, [facility]([phone]), at 09/27/2021 11:19 AM Madelaine Jenkins MD [...] CARE TEST O RDERABLES Performing Organization Address [facility]/ZIP Co de Phone Number [facility] [place] [id number] * POCT Glucose (09/27/2021 6:48 AM EDT) Glucose, POC 128 65 - 199 mg/dL [facility] Comment: Supplemental ranges: <140 mg/dL before meals <180 mg/dL all other times of the day Blood 09/27/2021 6:48 AM EDT 09/27/2021 6:48 AM EDT Madelaine Jenkins MD POINT OF CARE TEST O RDERABLES [facility] [place] [place] [address] * POCT Glucose (09/27/2021 3:24 AM EDT) Glucose, POC 139 65 - 199 mg/dL [facility] Comment: Supplemental ranges: <140 mg/dL before meals <180 mg/dL all other times of the day Blood 09/27/2021 3:24 AM EDT 09/27/2021 3:24 AM EDT Madelaine Jenikns MD POINT OF CARE TEST O RDERABLES Performing Organization Address [facility]/ZIP Co de Phone Number [facility] [place] [address] * Type and Screen Validity (09/27/2021 3:23 AM EDT) T&S only valid at [facility] Comment:This Type and Screen result is only valid at the [facility] Blood 09/27/2021 3:23 AM EDT 09/27/2021 4:08 AM EDT Narrative Resulting Agency Comment Spec In Lab Nathen Crystal MD BLOOD BANK LAB ORDER YOON Performing Organization Address [facility] de Phone Number [facility] [place] [address] * Scan, Peripheral Blood (09/27/2021 3:23 AM EDT) Plat estimate Normal [facility] RBC Morphology Abnormal [facility] Ovalocytes 1-5 /HPF [facility] Blood 09/27/2021 3:23 AM EDT 09/27/2021 4:00 AM EDT Narrative Resulting Agency Comment Spec In Lab Nathen Crystal MD HEMATOLOGY ORDERABLE S Performing Organization Address [facility] Co de Phone Number [facility] [place] [address] * ABORH Recheck Status (09/27/2021 3:23 AM EDT) ABORH Recheck Order Order Placed [facility] ABORH Type Recheck Complete [facility] Blood 09/27/2021 3:23 AM EDT 09/27/2021 4:08 AM EDT Narrative Resulting Agency Comment Spec In Lab Nathen Crystal MD BLOOD BANK LAB ORDER YOON Performing Organization Address City/[facility]/ZIP Co de Phone Number [facility] [place] [address] * Antibody screen (09/27/2021 3:23 AM EDT) Ab Screen Interp Negative [facility] Expires at 2359 on: 09/30/2021 [facility] Blood 09/27/2021 3:23 AM EDT 09/27/2021 4:08 AM EDT Narrative Resulting Agency Comment Spec In Lab Nathen Crystal MD BLOOD BANK LAB ORDER YOON Performing Organization Address City/[facility]/ZIP Co de Phone Number [facility] [place] [address] * ABO/Rh Typing (09/27/2021 3:23 AM EDT) Pathologist [facility] ABORH Type A Neg [facility] Blood 09/27/2021 3:23 AM EDT 09/27/2021 4:08 AM EDT Narrative Resulting Agency Comment Spec In Lab Nathen Crystal MD BLOOD BANK LAB ORDER YOON Performing Organization Address City/[facility] Co de Phone Number [facility] [place] [place] [address] * (ABNORMAL) Differential, Automated (09/27/2021 3:23 AM EDT) Neutrophil % 49.7 % [facility] Neutrophil Absolute 5.50 1.70 - 6.10 x10(3)/mc L [facility] Lymph % 40.5 % [facility] Lymphocytes Abs 4.5(H) 0.9 - 3.2 x10(3)/mc L [facility] Monocyte % 7.5 % [facility] Monocyte Abs 0.8 0.3 - 0.9 x10(3)/mc L [facility] Eos % 1.3 % [facility] Eosinophils Abs 0.1 0.0 - 0.4 x10(3)/[facility] LABORATORY Basophil % 0.5 % [facility] Baso Absolute 0.1 0.0 - 0.1 x10(3)/ L [facility] Immature Gran [...] Immature Gran Absolute 0.06(H) 0.00 - 0.04 x10(3)/[facility] Blood 09/27/2021 3:23 AM EDT 09/27/2021 4:00 AM EDT Narrative Resulting Agency Comment Spec In Lab Nathen Crystal MD HEMATOLOGY ORDERABLE S Performing Organization Address City/State/[facility] Co de Phone Number [facility] [address] * (ABNORMAL) Hemogram (09/27/2021 3:23 AM EDT) White Blood Cell 11.1(H) 4.0 - 9.5 x10(3)/ L [facility] Red Blood Cell 4.24 4.00 - 5.21 x10(6)/ L [facility] Hemoglobin 13.4 11.7 - 15.5 [...] RDW Standard Deviation 42.5 37.0 - 46.0 [facility] RDW coefficient of variation 12.3 11.5 - 14.1 % [facility] Mean Platelet Volume 9.7 7.6 - 12.9 [facility] LABORATORY NRBC% auto 0.0 % [facility] NRBC Absolute 0.000 0.000 - 0.000 x10(3)/mc L [facility] Blood 09/27/2021 3:23 AM EDT 09/27/2021 4:00 AM EDT Narrative Resulting Agency Comment Spec In Lab Nathen Crystal MD HEMATOLOGY ORDERABLE S Performing Organization Address [facility]/ZIP Co de Phone Number [facility] [place] [address] * APTT (09/27/2021 3:23 AM EDT) Partial [...] MD HEMATOLOGY ORDERABLE S Performing Organization Address City/[facility]/ZIP Co de Phone Number [facility] [place] [address] * Prothrombin Time (09/27/2021 3:23 AM EDT) [...] HEMATOLOGY ORDERABLE S [facility] [place] [address] * (ABNORMAL) Basic Metabolic Panel (non-fasting) (09/27/2021 [...] Jenkins MD CHEMISTRY ORDERABLES Performing Organization Address [facility] Co de Phone Number [facility] [place] [address] * (ABNORMAL) POCT Glucose (09/26/2021 7:45 PM EDT) [facility] Glucose, POC 223(H) 65 - 199 mg/dL [facility] Comment: Supplemental ranges: <140 mg/dL before meals <180 mg/dL all other times of the day Blood 09/26/2021 7:45 PM EDT 09/26/2021 7:45 PM EDT Madelaine Jenkins MD POINT OF CARE TEST O RDERABLES Performing Organization Address [facility] Co de Phone Number [facility] [place] [address] * COVID-19 PCR (09/26/2021 5:10 PM EDT) [facility] SARS-CoV-2 RNA (Rapid) Not Detected Not Detected [...] using the Simplexa COVID-19 Direct Assay by Tap2print as authorized by the FDA issued Emergency [...] Department of Pathology and Laboratory Medicine at [facility], certified under the Clinical Laboratory Improvement Amendments [...] fact sheets at the following FDA website: https://www.fda.gov/medical-devices/snvbwgzhufj-vlzdecr-0685-xtdit-05-mlzjomscd- use-a guqytplltyskm-qfkmgoe-ricsqtj/glygo-dfwutcnnrrd-xbpk SARS-CoV-2 Source FIELD SERVICE COORDINATOR Swab COURTNEY ARCOS [facility] Nasopharyngeal Swab 09/27/19 5:10 PM EDT 09/26/2021 7:19 PM EDT Comment:Symptoms->Surveillan ce Narrative Resulting Agency Comment Spec In Lab Madelaine Jenkins MD MICROBIOLOGY - GENER AL ORDERABLES JUDAH [facility] [address] [place] [address] documented in this encounter Visit Diagnoses Not [...] Megan Bansal, RN) 08 (Given - Provider: aWnda Wolfe RN)1500 (Due - Provider: Admin Adt) [...] - Reason: Transfer to a Procedural area)2230 ([facility] Unhold - Provider: Admin Adt) 08 (Given [...] Megan Bansal RN - Reason: Patient/family refused)2230 ([facility] Unhold - Provider: Admin Adt) 08 (Not Given - Provider: Wanda Wolfe RN - Reason: Patient/family refused) enoxaparin (Lovenox) (40 mg/0.4 mL) subcutaneous injection 40 mg 40 mg, Subcutaneous, NIGHTLY, First dose on Sat09/26/21 at 2100, Until Discontinued, Routine 2030 (Given - Provider: Tom Fernandez RN) 173 ([facility] Hold - Provider: Admin Adt - Reason: Transfer to a Procedural area)223 ([facility] Unhold - Provider: Admin Adt)224 (Given - Provider: Megan Bansal RN) famotidine (Pepcid) tablet 20 mg 20 mg, Oral, DAILY, First dose on Sat09/26/21 at 2000, Until Discontinued 0816 (Given - Provider: Arlene Feldman LPN) 0809 (Given - Provider: Wanda Wolfe RN)173 ([facility] Hold - Provider: Admin Adt - Reason: Transfer to a Procedural area)223 ([facility] Unhold - Provider: Admin Adt) 0823 [...] RN)1400 (Given - Provider: Wanda Wolfe RN)173 ([facility] Hold - Provider: Admin Adt - Reason: Transfer to a Procedural area)2230 ([facility] Unhold - Provider: Admin Adt)2250 (Given [...] DAILY, First dose (after last modification) on [facility] 09/30/21 at 0900, Until Discontinued, Please check blood sugar prior to administration and hold if blood sugar is less than 90, Routine insulin lispro (HumaLOG;Admelog) (100 unit/mL) subcutaneous injection vial 1-6 Units(Linked Group 1) 1-6 Units, Subcutaneous, 3 TIMES DAILY BEFORE MEALS, First dose on [facility] 09/28/21 at 1130, Until Discontinued, CORRECTION [...] Bolus (Units))., Medication Name: lispro (Humalog) 1738 ([facility] Hold - Provider: Admin Adt - Reason: Transfer to a Procedural area)2230 ([facility] Unhold - Provider: Admin Adt) ipratropium-albuteroL (Duoneb) 0.5 mg-3 mg(2.5 mg base)/3 mL nebulizer solution 3 mL 3 mL, Nebulization, 4 TIMES DAILY PRN, Starting on Sat09/26/21 at 1905, Until Sat09/29/21 at 1826, Wheezing, Routine 1738 ([facility] Hold - Provider: Admin Adt - Reason: Transfer to a Procedural area)2230 ([facility] Unhold - Provider: Admin Adt) lidocaine (Xylocaine) 1% (10 mg/mL) injection 3 mg 3 mg (0.3 mL), Subcutaneous, ONCE PRN, 1 dose, Starting on Sat09/26/21 at 1908, Until Sat09/29/21 at 1826, for discomfort with PIV insertion, Routine 1738 ([facility] Hold - Provider: Admin Adt - Reason: Transfer to a Procedural area)2230 ([facility] Unhold - Provider: Admin Adt) melatonin tablet 3 mg 3 mg, Oral, NIGHTLY PRN, Starting on Sat09/26/21 at 1910, Until Sat09/29/21 at 1826, Sleep, Routine 2028 (Given - Provider: Tom Fernandez RN) 1738 ([facility] Hold - Provider: Admin Adt - Reason: Transfer to a Procedural area)2230 ([facility] Unhold - Provider: Admin Adt) ondansetron [...] Routine documented in this encounter Care Teams Host/Hostess Restaurant Relationship Specialty Start Date End Date Jossie Patton APRN [address] [place] [address] PCP - General Family Medicine 04/19/20 documented as of this encounter
--- OUTSIDE RECORDS SUMMARY | 2024-02-17 18:37 | XMS_ITS | Encounter Summary ---
[place] [address] Care Team Providers Care Lean Sensei Name Role Phone Jossie Patton APRN Primary Care Provider Reason for Referral * Diagnostic Test (Routine) - Closed Specialty Diagnoses / Procedures Referred By Contac t Referred To Contact Sleep Center Diagnoses KIMBERLEY (obstructive sleep apnea) Sleep walking Enuresis Insomnia, unspecified type Procedures Sleep Study Diagnostic PSG / Split Night PSG Rojelio Cancino DO [facility] [place] [address] [facility] [address] [place] [address] Referral ID Status Reason Start Date Expiration Date V isits Requested Visits Authorized [id number] Closed Specialty Service Requested 08/30/2021 08/30/2022 1 1 Reason for Visit * Consultation (Routine) - Closed Specialty Diagnoses / Procedures Referred By Contac t Referred To Contact Sleep Center Diagnoses Sleep disorder Jossie Patton APRN [address] [place] [address] [facility] [address] [place] [address] Referral ID Status Reason Start Date Expiration Date V isits Requested Visits Authorized [id number] Closed Consult, Test & Treat 06/28/2021 06/28/2022 6 6 Encounter Details Date Type Department Care Team (Latest Contact Info) Description 08/29/2021 2:30 PM EDT TH Visit (TeleHealth) Sleep [facility] [address] [place] [address] Rojelio Cancino DO [facility] [place] [address] Sleep walking (Primary Dx); KIMBERLEY (obstructive sleep [...] of ongoing public health emergency Patient Location: [facility] Patient is Located in at time of [...] on 05/16/13-> 29 on 07/07/19) E55.9 ??? 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 90 each [...] ??? Blood-Glucose Meter (OneTouch Verio Flex meter) [facility] USE TO CHECK BLOOD GLUCOSE TWICE DAILY [...] results can be sent to them via [facility]. If a home care company is required the following home care company is requested: no preference Recommendations: 1) Polysomnography - in-lab PSG with RBD montage. 2) Driving safety was reviewed with patient. If the patient feels too sleepy to drive he/she knows not to drive. If he/she becomes sleepy while driving he/she will harness puller and nap. 3) Sleep walking safety discussed. She is using locks on doors and bed is on bottom level. Clear debris from room. Remove sharp or potentially harmful/sharp objects. The patient indicates understanding of these issues and agrees with the plan. 4) No changes to current medications. Rojelio Cancino DO Consult: [id number]:___60 min consult with majority of time devoted to counseling or discussion OR ___Billing on elements with moderate complexity of decision making New patient: Total time of visit, 70 minutes, including face to face counseling, chart review and documentation. [id number]: ___Total time including face to face, chart review and documentation of 45-59 min OR ___Moderate level of medical decision making (ie 1 chr illness with exac, progression or side effects of treatment or 2+ stable chronic illnesses and moderate risk of morbidity) [id number]: _x__Total time including face to face, chart [...] 1:40 PM EDT Office [place] [address] Kristi Caicedo APRN [facility] [place] [address] Scheduled Orders Name Type Priority Associated Diagnoses [...] type documented in this encounter Care Teams Lean Sensei Relationship Specialty Start Date End Date Jossie Patton APRN [address] [place] [address] PCP - General Family Medicine 04/19/20 documented as of this encounter
--- OUTSIDE RECORDS SUMMARY | 2024-02-17 18:37 | XMS_ITS | Encounter Summary ---
Author Organization [facility] [place] [address] Care Team Providers Care Pulverizer Feeder Name Role Phone Jossie Patton APRN Primary Care Provider [phone] Reason for Visit * Reason Comments Medication Refill Encounter Details Date Type Department Care Team (Late st Contact Info) Description 06/26/2021 Refill [place] [phone] Elijah Oneal MD [facility] [place] [place] [address] Social History Tobacco Use Types Packs/Day Years [...] 1:40 PM EDT Office Visit [place] [address] Kristi Caicedo APRN [facility] [place] [place] [address] documented as of this encounter Visit Diagnoses Not on filedocumented in this encounter Care Teams Pulverizer Feeder Relationship Specialty Start Date End Date Jossie Patton APRN [address] [place], [place] [address] PCP - General Family Medicine 04/19/20 documented as of this encounter
--- OUTSIDE RECORDS SUMMARY | 2024-02-17 18:37 | XMS_ITS | Encounter Summary ---
Author Organization [facility] [place] [address] Care Team Providers Care Health Assessment And Treatment Teacher Name Role Phone Jossie Patton APRN Primary Care Provider [phone] Reason for Visit * Reason Comments Medication Refill Encounter Details Date Type Department Care Team (Late st Contact Info) Description 09/13/2021 Ref[place] [phone] Elijah Oneal MD [facility] [address] [place] [address] Social History Tobacco Use Types Packs/Day Years [...] 1:40 PM EDT Office [place] [address] Kristi Caicedo APRN [facility] [address] documented as of this encounter Visit Diagnoses Not on filedocumented in this encounter Care Teams Health Assessment And Treatment Teacher Relationship Specialty Start Date End Date Jossie Patton APRN [address] [place], [place] [address] PCP - General Family Medicine 04/19/20 documented as of this encounter
--- OUTSIDE RECORDS SUMMARY | 2024-02-17 18:37 | XMS_ITS | Encounter Summary ---
Author Organization [facility] [place] [address] Care Team Providers Care Oracle Architect Name Role Phone Pooja, Jossie Gabrielle GARCIA Primary Care Provider [phone] Encounter Details Date Type Department Care Team (Late st Contact Info) Description 08/22/2020 Telephone [place] [phone] Alexandr Deras RN Social History Tobacco Use [...] She would like these to go to [facility] in [place], [place] documented in this encounter Plan of Treatment Upcoming Encounters Date Type Department Care Team (Late st Contact Info) Description 02/21/2024 1:40 PM EDT Office Visit [place] [phone] Kristi Caicedo APRN [facility] [address] [place] [address] documented as of this encounter Visit Diagnoses Not on filedocumented in this encounter Care Teams Oracle Architect Relationship Specialty Start Date End Date Jossie Patton APRN [address] [place] [address] PCP - General Family Medicine 04/19/20 documented as of this encounter
--- OUTSIDE RECORDS SUMMARY | 2024-02-17 18:37 | XMS_ITS | Encounter Summary ---
Author Organization [facility] [place] [address] Care Team Providers Care Yard Jacker Name Role Phone Jossie Patton APRN Primary Care Provider [phone] Reason for Visit * Reason Comments Medication Refill Encounter Details Date Type Department Care Team (Late st Contact Info) Description 08/12/2021 [place] [phone] Elijah Oneal MD [facility] [place] [address] Social History Tobacco Use Types Packs/Day Years [...] 1:40 PM EDT Office [place] [address] Kristi Caicedo APRN [facility] [place] [address] documented as of this encounter Visit Diagnoses Not on filedocumented in this encounter Care Teams Yard Jacker Relationship Specialty Start Date End Date Jossie Patton APRN [address] [place], [place] [address] PCP - General Family Medicine 04/19/20 documented as of this encounter
--- OUTSIDE RECORDS SUMMARY | 2024-02-17 18:37 | XMS_ITS | Encounter Summary ---
Author Organization [facility] Address [facility] [place] [address] Care Team Providers Care Linoleum Layer Name Role Phone Jossie Patton APRN Primary Care Provider [phone] Reason for Visit * Consultation (Routine) - Closed Specialty Diagnoses / Procedures Referred By Savannah t Referred To Contact Psychiatry Diagnoses JAMIL, anxiety, racing thoughts, obsessive cleaning, mood swings Procedures MOOD DISORDER-ECT Aleah Wick APRN [address] [place] [address] [facility] [place] [address] Referral ID Status Reason Start Date Expiration Date V isits Requested Visits Authorized [id number] Closed Consult, Test & Treat [facility] PCP Updated and/or Approved 05/23/2021 05/23/2022 6 6 Encounter Details Date Type Department Care Team (Latest Contact Info) Description 07/31/2021 1:30 PM EDT TH Visit (TeleHealth) Psychiatry and [place] [address] Eros Avilez MD [facility] [place] [address] Post-traumatic stress disorder, chronic; Bipolar [...] their note for additional details. Current location: [address] [place] [address] IDENTIFYING DATA: Guzman Jean (: 1975) was referred by her Psychiatric LAND DEPARTMENT HEAD, Aleah Wick for consultation regarding ECT. HISTORY [...] time she saw Aleah Wick, her psychiatric LAND DEPARTMENT HEAD. At the time her medications included Vraylar 3mgdaily, Gabapentin 1200mg QHS, Clonicine 0.4mg QHS, and was also started on Seroquel PRN by an ignition mechanic provider, and has been taking taking 400mg [...] (nighttime amnesia/sleepwalking), and has been referred to [facility] sleep medicine team for further assessment. Lorazepam [...] ?? History of stimulant abuse Hospitalization: Marky Kitzmiller - November 2012 [facility] - [...] past she has participated in the intensive [place] program for trauma/borderline personality disorder (over a decade ago). This did help a little bit. ?? Has done both CBT and DBT in the past. The DBT has been helpful before. ECT: No prior ECT, TMS, or Ketamine Prior medication trials: ?? Methylphenidate - Abused it, so it was stopped. This was when she was around 32. ?? [place] - Makes her feel sick. She got [...] Lives with her boyfriend and daughter in [facility]. Also closer with her mom. Finances are [...] a therapist, and discussed the web site [email or web address]. 2. She does not feel like she [...] them as documented. Haim Mancini MD Pager: [phone] documented in this encounter Plan of Treatment Upcoming Encounters Date Type Department Care Team (Late st Contact Info) Description 02/21/2024 1:40 PM EDT Office Visit [place] [address] Kristi Caicedo APRN [facility] [place] [address] documented as of this encounter Visit Diagnoses Diagnosis Post-traumatic stress disorder, chronic Bipolar affective disorder, current episode depressed, current episode severity unspecified documented in this encounter Care Teams Linoleum Layer Relationship Specialty Start Date End Date Jossie Patton APRN [address] [place] [address] PCP - General Family Medicine 04/19/20 documented as of this encounter
--- OUTSIDE RECORDS SUMMARY | 2024-02-17 18:37 | XMS_ITS | Encounter Summary ---
Author Organization [facility] [place] [address] Care Team Providers Care Licensed Mental Health Counselor Name Role Phone Jossie Patton APRN Primary Care Provider [phone] Encounter Details Date Type Department Care Team (Late st Contact Info) Description 01/18/2021 Ancillary Procedure Radiology Library at [facility] [place] [address] Jossie Patton APRN [address] [place] [address] Social History Tobacco Use Types Packs/Day Years [...] 1:40 PM EDT Office Visit Endocrinology at [facility] [place] [address] Kristi Caicedo APRN [facility] [place] [address] documented as of this encounter Procedures Procedure [...] Patton APRN [employer]M LIBRARY ORD ERABLES [place], [place] documented in this encounter Visit Diagnoses Not on filedocumented in this encounter Care Teams Licensed Mental Health Counselor Relationship Specialty Start Date End Date Jossie Patton APRN [address] [place] [address] PCP - General Family Medicine 04/19/20 documented as of this encounter
--- OUTSIDE RECORDS SUMMARY | 2024-02-17 18:37 | XMS_ITS | Encounter Summary ---
Author Organization [facility] [place] [address] Care Team Providers Care Concrete Batching Plant Operator Name Role Phone Jossie Patton RADHA Primary Care Provider [phone] Encounter Details Date Type Department Care Team (Late st Contact Info) Description 08/29/2020 Telephone Endocrinology at [facility] [place] [address] [facility] [place] [address] Social History Tobacco Use Types Packs/Day Years [...] Pump Company and Type: [employer] [place]: Marisol Gibson Indicate if remote virtual training [...] are faxed to the pump company's pump service dog trainer. Confirmation received. Isis Chapa RD documented in this encounter Plan of Treatment Upcoming Encounters Date Type Department Care Team (Late st Contact Info) Description 02/21/2024 1:40 PM EDT Office [place] [address] Kristi Caicedo APRN [facility] [place] [address] documented as of this encounter Visit Diagnoses Not on filedocumented in this encounter Care Teams Concrete Batching Plant Operator Relationship Specialty Start Date End Date Jossie Patton APRN [address] [place] [address] PCP - General Family Medicine 04/19/20 documented as of this encounter
--- OUTSIDE RECORDS SUMMARY | 2024-02-17 18:37 | XMS_ITS | Encounter Summary ---
Author Organization [facility] [place] [address] Care Team Providers Care Auction Block Clerk Name Role Phone Pooja Jossie Anthony APRN Primary Care Provider [phone] Encounter Details Date Type Department Care Team (Latest Contact Info) Description 05/23/2020 10:00 AM EST Laboratory Appointment Lab [address] [place] [address] Diabetes mellitus due to underlying condition, uncontrolled, with complication, with long-term current use of insulin; Type 2 diabetes mellitus, uncontrolled, with neuropathy; Curtis-induced hypothyroidism and transient hypercalcemia (TSH 4.4H on [...] 1:40 PM EDT Office [place] [phone] Kristi Caicedo APRN [facility] [place] [address] documented as of this encounter Procedures Procedure Name Priority Date/Time Associated Diagnosis Comments HC CREATININE - NON BLOOD Routine 05/23/2020 8:21 AM EST Type 2 diabetes mellitus, uncontrolled, 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 (TSH 4.4H on [...] Type 2 diabetes mellitus, uncontrolled, 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 (TSH 4.4H on 09/18/19, iCa 5.75H with Li 1.3-1.7H) Vitamin D deficiency (25vitD 14.5 on 05/16/13-> 29 on 07/07/19) Mixed hyperlipidemia HC C PEPTIDE Routine 05/23/2020 8:20 AM EST Type 2 diabetes mellitus, uncontrolled, 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 (TSH 4.4H on 09/18/19, iCa 5.75H with Li 1.3-1.7H) Vitamin D deficiency (25vitD 14.5 on 05/16/13-> 29 on 07/07/19) Mixed hyperlipidemia HC THYROID STIMULATING HORMONE, SERUM Routine 05/23/2020 8:20 AM EST Type 2 diabetes mellitus, uncontrolled, 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 (TSH 4.4H on 09/18/19, iCa 5.75H with Li 1.3-1.7H) Vitamin D deficiency (25vitD 14.5 on 05/16/13-> 29 on 07/07/19) Mixed hyperlipidemia HC LDL CHOLESTEROL, DIRECT Routine 05/23/2020 8:20 AM EST Type 2 diabetes mellitus, uncontrolled, 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 (TSH 4.4H on 09/18/19, iCa 5.75H with Li 1.3-1.7H) Vitamin D deficiency (25vitD 14.5 on 05/16/13-> 29 on 07/07/19) Mixed hyperlipidemia HC HEMOGLOBIN A1C Routine 05/23/2020 8:2 0 AM EST Type 2 diabetes mellitus, uncontrolled, 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 (TSH 4.4H on 09/18/19, iCa 5.75H with Li 1.3-1.7H) Vitamin D deficiency (25vitD 14.5 on 05/16/13-> 29 on 07/07/19) Mixed hyperlipidemia HC VITAMIN B12 SERUM Routine 05/23/2020 8:20 AM EST Type 2 diabetes mellitus, uncontrolled, 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 (TSH 4.4H on 09/18/19, iCa 5.75H with Li 1.3-1.7H) Vitamin D deficiency (25vitD 14.5 on 05/16/13-> 29 on 07/07/19) Mixed hyperlipidemia COMPREHENSIVE METABOLIC PANEL Routine 05/23/2020 8:20 AM EST Type 2 diabetes mellitus, uncontrolled, 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 362 Albumin, Urine <3.0 mg/L [facility] Creatinine, Urine 62 mg/dL [facility] Urine specimen (specimen) 05/23/2020 8:21 AM EST 05/23/2020 8:36 AM EST Narrative Resulting Agency Comment Spec In Lab Elijah Oneal MD URINE ORDERABLES [facility] [place] [address] * (ABNORMAL) Hemoglobin A1c (05/23/2020 8:20 AM EST) Hemoglobin A1c 10.0(H) 4.3 - 5.6 % [facility] Comment: Reference Range: 4.3 [...] Mellitus, Diabetes Care 2013; 36: Suppl. 1, S67-58 Estimated Average Glucose 241 mg/dL [facility] Comment: eAG equivalents for [...] into estimated average glucose values. ??Diabetes Care 2008:31(8):6136-7415. Blood specimen (specimen) 05/23/2020 8:20 AM EST 05/23/2020 8:43 AM EST Narrative Resulting Agency Comment Spec In Lab Elijah Oneal MD CHEMISTRY ORDERAB LES Performing Organization Address City/[facility]/ZIP Co de Phone Number [facility] [place] [address] * C-peptide (05/23/2020 8:20 AM EST) C-Peptide 1.7 0.8 - 5.2 ng/mL [facility] Blood specimen (specimen) 05/23/2020 8:20 AM EST 05/23/2020 8:43 AM EST Narrative Resulting Agency Comment Spec In Lab Elijah Oneal MD CHEMISTRY ORDERAB LES Performing Organization Address City/[facility]/ZIP Co de Phone Number [facility] [place] [address] * (ABNORMAL) Comprehensive metabolic panel (non-fasting) (05/23/2020 8:20 AM EST) Glucose 158 65 - 199 mg/dL [facility] Comment:Diabetes: >=200 mg/d L plus symptoms Blood Urea Nitrogen 11 8 - 18 mg/dL [facility] Creatinine 0.69(L) 0.70 - 1.20 mg/dL [facility] Sodium 138 135 - 145 mmol/L [facility] Potassium 4.3 3.5 - 5.0 mmol/L [facility] Comment: Please note: ??Patients with WBC >100,000 may have falsely elevated Potassium levels. ??For accurate Potassium quantification in these patients send serum separator tube (gold top) for subsequent determinations. ??Contact the Clinical Chemistry Laboratory if there are any questions. Chloride 103 98 - 107 mmol/L [facility] Carbon Dioxide 23 22 - 31 mmol/L [facility] Anion Gap 12 5 - 15 mmol/L [facility] Calcium 9.9 8.5 - 10.5 mg/dL [facility] Protein, Total 7.1 6.1 - 8.0 gm/dL [facility] Albumin 4.7 3.2 - 5.2 gm/dL [facility] Aspartate Aminotransferase 25 0 - 30 unit/L [facility] Alanine Aminotransferase 32(H) 0 - 30 unit/L [facility] Alkaline Phosphatase 78 35 - 105 unit/L [facility] Bilirubin, Total 0.4 0.2 - 1.3 mg/dL [facility] Est Glomerular Filtration Rate 107 >=60 mL/min/1. 73 m?? [facility] Comment: This patient? s [...] MD CHEMISTRY ORDERAB LES Performing Organization Address [facility]/ZIP Co de Phone Number [facility] [place] [address] * Vitamin D, 25-Hydroxy (05/23/2020 8:20 AM EST) Vitamin D Total 25 OH 38 21 - 100 ng/mL [facility] Vit D Interp Sufficient [facility] Blood specimen (specimen) 05/23/2020 8:20 AM EST 05/23/2020 8:43 AM EST Narrative Resulting Agency Comment Spec In Lab Elijah Oneal MD CHEMISTRY ORDERAB LES Performing Organization Address City/[facility] Co de Phone Number [facility] [address] * Vitamin B12 (05/23/2020 8:20 AM EST) Vitamin B12 324 232 - 1,245 pg/mL [facility] Blood specimen (specimen) 05/23/2020 8:20 AM EST 05/23/2020 8:43 AM EST Narrative Resulting Agency Comment Spec In Lab Elijah Oneal MD CHEMISTRY ORDERAB LES Performing Organization Address City/[facility]/ZIP Co de Phone Number [facility] [address] * TSH (05/23/2020 8:20 AM EST) Thyroid Stimulating Hormone 1.72 0.27 - 4.20 mcIU/mL [facility] Blood specimen (specimen) 05/23/2020 8:20 AM EST 05/23/2020 8:43 AM EST Narrative Resulting Agency Comment Spec In Lab Elijah Oneal MD CHEMISTRY ORDERAB LES Performing Organization Address [facility] Co de Phone Number [facility] [address] * LDL Cholesterol, Direct (05/23/2020 8:20 AM EST) LDL Cholesterol, Direct 96 mg/dL [facility] Comment: Lowest Risk: <100 mg/dL Lower Risk: 100-129 mg/dL Borderline High Risk: 130-159 mg/dL High Risk: 160-189 mg/dL Very High Risk: >aa=061 mg/dL Blood specimen (specimen) 05/23/2020 8:20 AM EST 05/23/2020 8:43 AM EST Narrative Resulting Agency Comment Spec In Lab Elijah Oneal MD CHEMISTRY ORDERAB LES Performing Organization Address [facility] de Phone Number [facility] [address] * GAD65 Antibody Assay (05/23/2020 8:20 AM EST) Pathologist [facility] Gad65 Ab (AUGUST) 0.00 <=0.02 nmol/L [facility] Comment: ADDITIONAL INFORMATION This test was developed and its performance characteristics determined by [facility] in a manner consistent with CLIA requirements. This test has not been cleared or approved by the U.S. Food and Drug Administration. Test Performed by: [facility] - [address] [address] Automatic Lathe Operator: Lloyd Barker M.D. Ph.D.; CLIA# [id number] Blood specimen (specimen) 05/23/2020 8:20 AM EST 05/23/2020 11:14 AM EST Narrative Resulting Agency Comment Spec In Lab Elijha Oneal MD LAB SEND OUT MARK LOCKETT Performing Organization Address [facility]/ZIP Co de Phone Number [facility] [address] documented in this encounter Visit Diagnoses Diagnosis Diabetes mellitus due to underlying condition, uncontrolled, with complication, with long-term current use of insulin Type 2 diabetes mellitus, uncontrolled, with neuropathy Type II or unspecified type diabetes mellitus with neurological manifestations, uncontrolled Curtis-induced hypothyroidism and transient hypercalcemia (TSH 4.4H on 09/18/19, iCa 5.75H with Li 1.3-1.7H) Other iatrogenic hypothyroidism Vitamin D deficiency (25vitD 14.5 on 05/16/13-> 29 on 07/07/19) Unspecified vitamin D deficiency Mixed hyperlipidemia documented in this encounter Care Teams Auction Block Clerk Relationship Specialty Start Date End Date Jossie Patton APRN [address] [place] [address] PCP - General Family Medicine 04/19/20 documented as of this encounter
--- OUTSIDE RECORDS SUMMARY | 2024-02-17 18:37 | XMS_ITS | Encounter Summary ---
Author Organization [facility] [place] [address] Care Team Providers Care Supervisor Color Making Name Role Phone Jossie Patton APRN Primary Care Provider [phone] Encounter Details Date Type Department Care Team (Late st Contact Info) Description 06/06/2021 8:00 AM EST TH Visit (TeleHealth) [place] [address] Isamar Hoff MARKER MACHINE [facility] [place] [address] Type 2 diabetes mellitus, uncontrolled, with neuropathy; [...] vaccine --F/U lab for: Routed labs to [facility], B12, A1C, U alb/crea, creatinine, LDL, [...] from previous visit note: Kavya 01/31/21 Plan: [email or web address] - invitation sent to share Dexcom data [...] Last eye exam: yes appt 06/20 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 cariprazine (Vraylar) 3 [...] now using a Medtronic 670G pump & DexDoctorBase G6 CGM. Due to high insulin requirements also requires Tresiba administration to help with basal requirements. Fasting BGs remain elevated in the 200s. Diabetes is currently poorly controlled, last A1C of 10.0%, agrees to update labs in the next week at [facility]. Was started on Trulicity at last visit, [...] vaccine --F/U lab for: Routed labs to [facility], B12, A1C, U alb/crea, creatinine, LDL, vit D (updatenext week) --RTC: Next visit in 3 months. 50 minutes were spent reviewing the medical record and available tests, meeting with the [facility], counseling the patient on medications, recommending changes [...] 1:40 PM EDT Office [place] [phone] Kristi Caicedo APRN [facility] [place] [address] documented as of this encounter Visit Diagnoses Diagnosis Type 2 diabetes mellitus, uncontrolled, with neuropathy Type II or unspecified type diabetes mellitus with neurological manifestations, uncontrolled Vitamin D deficiency Unspecified vitamin D deficiency documented in this encounter Care Teams Supervisor Color Making Relationship Specialty Start Date End Date Jossie Patton APRN [address] [place] [address] PCP - General Family Medicine 04/19/20 documented as of this encounter
--- OUTSIDE RECORDS SUMMARY | 2024-02-17 18:37 | XMS_ITS | Encounter Summary ---
[place] [address] Care Team Providers Care Sales And Marketing Manager Name Role Phone Jossie Patton Gabrielle GARCIA Primary Care Provider [phone] Reason for Visit * Reason Onset Date Comments Pump/sensor 07/04/2021 Encounter Details Date Type Department Care Team (Late st Contact Info) Description 07/04/2021 Telephone [place] [phone] Kaia Farias Pump/sensor Social History Tobacco Use [...] 2:22 PM EDT Medtronic form faxed to [phone] on 07/14/21 * Telephone Encounter - Kaia [...] 1:40 PM EDT Office Visit [place] [address] Kristi Caicedo APRN [facility] [place] [address] documented as of this encounter Visit Diagnoses Not on filedocumented in this encounter Care Teams Sales And Marketing Manager Relationship Specialty Start Date End Date Jossie Patton APRN [address] [place] [address] PCP - General Family Medicine 04/19/20 documented as of this encounter
--- OUTSIDE RECORDS SUMMARY | 2024-02-17 18:37 | XMS_ITS | Encounter Summary ---
Author Organization [facility] [place] [address] Care Team Providers Care Minibus Driver Name Role Phone Jossie Patton APRN Primary Care Provider [phone] Reason for Visit * Auth/Cert Specialty Diagnoses / Procedures Referred By Savannah ashton Referred To Contact Diagnoses Humerus fracture fx humerus ORIF Procedures ELIZABETHI Madelaine Jenkins MD [facility] [place] [address] [facility] Referral ID Status Reason Start Date Expiration Date Visits Re quested Visits Authorized [id number] 1 1 Encounter Details Date Type Department Care Team (Late st Contact Info) Description 09/28/2021 5:20 PM EDT Anesthesia Event [place] [address] Bobby Collazo MD [facility] [place] [address] Kayla Ramos MD [facility] [place] [address] Anesthesia Record Procedure Summary Procedure Name Responsible [...] cephalic vein (lateral side of arm), left; msoj-evb-nuphly catheter system; Ultrasound Guidance; 20 gauge, 1 [...] Date: 09/28/21 Room / Location: [facility] OR [address] [place] [address] MAIN OR Anesthesia Start: 1719 Anesthesia Stop: [...] MD; Emely Rubin MD; Bobby Collazo MD RN REGISTRY: Simon Mercado CRNA; Breanna Hanley CRNA Vitals Value Taken Time BP 142/78 09/28/21 2205 Temp 36.7 ??C (98.1 ??F) 09/28/21 2145 Pulse 86 09/28/21 2205 Resp 22 09/28/21 2205 SpO2 96 % 09/28/21 2214 Pain Level 7 09/28/21 2120 Vitals shown include unvalidated device data. Patient Location: PACU/[facility] Level of Consciousness: Awake and Alert Pain [...] on 05/16/13-> 29 on 07/07/19) 05/21/2020 ??? Antares-induced hypothyroidism and transient hypercalcemia (TSH 4.4H on [...] risks discussed with patient. Plan discussed with RN REGISTRY. Anesthesia Screening documented in this encounter Plan of Treatment Upcoming Encounters Date Type Department Care Team (Late st Contact Info) Description 02/21/2024 1:40 PM EDT Office [place] [address] Kristi Caicedo APRN [facility] [place] [address] documented as of this encounter Visit Diagnoses [...] Starting on Edwina 09/28/21 at 1829, Until Edwina 09/28/21 at 2014, Anesthesia Intra-op, [...] mg documented in this encounter Care Teams Minibus Driver Relationship Specialty Start Date End Date Jossie Patton, [place] INTERN [address] [place] [address] PCP - General Family Medicine 04/19/20 documented as of this encounter
--- OUTSIDE RECORDS SUMMARY | 2024-02-17 18:37 | XMS_ITS | Encounter Summary ---
Author Organization [facility] [place] [address] Care Team Providers Care Knot Cutter Name Role Phone Jossie Patton APRN Primary Care Provider [phone] Reason for Visit * Consultation (Routine) - Closed Specialty Diagnoses / Procedures Referred By Savannah t Referred To Contact Endocrinology Diagnoses Type 2 diabetes mellitus, uncontrolled, with neuropathy Elijah Oneal MD [facility] [address] [place] [id number] Isis [address]a [address] [facility] [place] [address] Referral ID Status Reason Start Date Expiration Date V isits Requested Visits Authorized [id number] Closed Continuity of Care 05/21/2020 05/21/2021 1 1 Encounter Details Date Type Department Care Team (Late st Contact Info) Description 05/23/2020 8:00 AM EST Office Visit Endocrinology at [facility] [place] [place] [phone] [facility] [place] [address] Type 2 diabetes mellitus, uncontrolled, with neuropathy [...] Oneal today. 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 [address] [place] [place] [address] Scheduled Referrals Name Type Priority Associated Diagnoses Orde r Schedule Referral to Nutrition Services Outpatient Referral Routine Type 2 diabetes mellitus, uncontrolled, with neuropathy Ordered: 05/21/2020 documented as of this encounter Visit Diagnoses Diagnosis Type 2 diabetes mellitus, uncontrolled, with neuropathy Type II or unspecified type diabetes mellitus with neurological manifestations, uncontrolled documented in this encounter Care Teams Knot Cutter Relationship Specialty Start Date End Date Jossie Patton APRN [address] [place] [address] PCP - General Family Medicine 04/19/20 documented as of this encounter
--- OUTSIDE RECORDS SUMMARY | 2024-02-17 18:37 | XMS_ITS | Encounter Summary ---
Author Organization [facility] [place] [address] Care Team Providers Care Rug Weaver Name Role Phone PoojaJossie karimi Gabrielle GARCIA Primary Care Provider [phone] Encounter Details Date Type Department Care Team (Late st Contact Info) Description 05/27/2020 Telephone [place] [phone] Shy Lanza RN Social History Tobacco Use [...] 1:40 PM EDT Office [place] [phone] Kristi Caicedo APRN [facility] [address] [place], [place] [phone] documented as of this encounter Visit Diagnoses Not on filedocumented in this encounter Care Teams Rug Weaver Relationship Specialty Start Date End Date Jossie Patton APRN [address] [place] [address] PCP - General Family Medicine 04/19/20 documented as of this encounter
--- OUTSIDE RECORDS SUMMARY | 2024-02-17 18:37 | XMS_ITS | Encounter Summary ---
[place] [address] Care Team Providers Care Zoogler Name Role Phone Pooja Jossie Gabrielle GARCIA Primary Care Provider [phone] Reason for Visit * Reason Onset Date Comments Pump/sensor 08/12/2020 Encounter Details Date Type Department Care Team (Late st Contact Info) Description 08/12/2020 Telephone [place] [phone] Kaia Farias Pump/sensor Social History Tobacco Use [...] 1:20 PM EDT Faxed Medtronic form to [phone] on 08/16/20 documented in this encounter Plan of Treatment Upcoming Encounters Date Type Department Care Team (Late st Contact Info) Description 02/21/2024 1:40 PM EDT Office [place] [address] Kristi Caicedo APRN [facility] [place] [address] documented as of this encounter Visit Diagnoses Not on filedocumented in this encounter Care Teams Zoogler Relationship Specialty Start Date End Date Jossie Patton APRN [address] [place] [address] PCP - General Family Medicine 04/19/20 documented as of this encounter
--- OUTSIDE RECORDS SUMMARY | 2024-02-17 18:37 | XMS_ITS | Encounter Summary ---
Author Organization [facility] Julieta douglas [place] [id number] Care Team Providers Care Meter Attendant Name Role Phone PoojaJossie karimi Gabrielle GARCIA Primary Care Provider Encounter Details Date Type Department Care Team (Latest Contact Info) Description 08/23/2020 2:00 PM EDT Clinical Support Endocrinology at [facility] [place] [phone] [address] [facility] [place] [address] Type 2 diabetes mellitus, uncontrolled, with neuropathy [...] Chapa, RD - 08/23/2020 2:00 PM EDT [facility] Adult Endocrinology Diabetes Education and Nutrition Services: NEW to Insulin Pump Choice Exploration Visit and Pump Readiness Assessment Guzman Jean will be new to insulin pump therapy. She has type 2 diabetes. She already has her insulin pump, the Medtronic 630G and has had a pre-pump visit with Medtronic pump crew trainer. Prior to starting her insulin pump she [...] mg BID Metformin: 1000 mg BID CGM: Apozy G6 Diet: low carb about 20-25g of [...] insulin reservoir: patient will be using the [facility] set. Demonstration provided. Showed her [...] I let her know that the Medtronic crew trainer would be contacting her to schedule a training date and time. I let her know that Dr. Oneal still needs to write the orders, and that she cannot be trained by the Medtronic pump crew trainer until the orders are done. I am [...] medications like Victoza, Metformin, etc. Plan: 1. Clinical Psychologist Private Practice will have Dr. Oneal calculate and sign orders, then fax to Marisol Gibson the Medtronic pump crew trainer. 2. Guzman will have her insulin pump start training with a Medtronic insulin pump crew trainer within this next month. 3. Once Guzman starts her pump, I recommended Guzman schedule a follow up visit with Dr. Oneal within the next month. Discussed she should contact us sooner after starting in the insulin pump if she has any concerns with her blood sugars. Isis Chapa MS, RDN, LD Registered Dietitian-Collections Clerk & Racing Mechanic Adult Endocrinology 45 minutes spent in direct face to face counseling & education regarding insulin pump therapy initiation documented in this encounter Plan of Treatment Upcoming Encounters Date Type Department Care Team (Late st Contact Info) Description 02/21/2024 1:40 PM EDT Office [place] [address] Kristi Caicedo APRN [facility] [place] [address] documented as of this encounter Visit Diagnoses Diagnosis Type 2 diabetes mellitus, uncontrolled, with neuropathy Type II or unspecified type diabetes mellitus with neurological manifestations, uncontrolled documented in this encounter Care Teams Meter Attendant Relationship Specialty Start Date End Date Jossie Patton APRN [address] [place] [address] PCP - General Family Medicine 04/19/20 documented as of this encounter
--- OUTSIDE RECORDS SUMMARY | 2024-02-17 18:37 | XMS_ITS | Encounter Summary ---
[place] [address] Care Team Providers Care Assembler Semiconductor Name Role Phone Pooja, Jossie Gabrielle GARCIA Primary Care Provider [phone] Reason for Visit * Reason Onset Date Comments Prior Authorization 02/02/2021 Encounter Details Date Type Department Care Team (Late st Contact Info) Description 02/02/2021 Telephone [place] [phone] Kaia Farias Prior Authorization Social History Tobacco [...] for request: Type II DM Health plan: [place] Medicaid ([facility]) Authorizing authorization representative name: Martha Sent to health plan on: 02/07/21 Health plan decision: Denied Quantity approved: Authorization number: [id number] Start date: End date: * Telephone Encounter - Kaia Farias - 02/02/2021 7:16 AM EDT Received PA for ozempic Will complete as soon as possible documented in this encounter Plan of Treatment Upcoming Encounters Date Type Department Care Team (Late st Contact Info) Description 02/21/2024 1:40 PM EDT Office [place] [address] Kristi Caicedo APRN [facility] [place] [address] documented as of this encounter Visit Diagnoses Not on filedocumented in this encounter Care Teams Assembler Semiconductor Relationship Specialty Start Date End Date Jossie Patton, RADHA [address] [place] [address] PCP - General Family Medicine 04/19/20 documented as of this encounter
--- OUTSIDE RECORDS SUMMARY | 2024-02-17 18:37 | XMS_ITS | Encounter Summary ---
Author Organization [facility] [place] [address] Care Team Providers Care Grails Web Application Developer Name Role Phone Jossie Patton RADHA Primary Care Provider [phone] Encounter Details Date Type Department Care Team (Latest Contact Info) Description 08/04/2020 9:00 AM EDT TH Visit (TeleHealth) [place] [address] Elijah Oneal MD [facility] [place] [address] Type 2 diabetes mellitus, uncontrolled, with neuropathy; [...] to recheck lab for A1c locally at [facility] lab [...] 400 to have your insulin doses adjusted. 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 Her 3 daughters are now 6, 12 and 21 yrs old and she has supportive family and her step-mother is also having he r medical care here. She used to see Platen Press Operator at [facility] (Tio Ray MD) before and switched her care to [facility] since Apr 2020. Current outpatient diabetes regimen: [...] on 05/16/13-> 29 on 07/07/19) E55.9 ??? 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 Attends Sabian[employer] Services: ??? Active Member of Clubs or [...] visit: BW 220 lb, 5', BP 140/51, LA 77, RR 12, BMI 43 Appearance: Patient [...] much better and is able to stop [place] in summer 2019 with stable mood. She has supportive family and used to see Platen Press Operator at [facility] (Tio Ray MD) before switching care to [facility] like her step-mother. Review of her previous [...] to recheck lab for A1c locally at [facility] lab [...] 400 to have your insulin doses adjusted. [facility] Endocrine clinic office documented in this encounter Plan of Treatment Upcoming Encounters Date Type Department Care Team (Late st Contact Info) Description 02/21/2024 1:40 PM EDT Office [place] [address] Kristi Caicedo APRN [facility] [place] [address] documented as of this encounter Visit Diagnoses Diagnosis Type 2 diabetes mellitus, uncontrolled, with neuropathy Type II or unspecified type diabetes mellitus with neurological manifestations, uncontrolled PCOS (polycystic ovarian syndrome) Polycystic ovaries documented in this encounter Care Teams Grails Web Application Developer Relationship Specialty Start Date End Date Jossie Patton APRN [address] [place] [address] PCP - General Family Medicine 04/19/20 documented as of this encounter
--- OUTSIDE RECORDS SUMMARY | 2024-02-17 18:38 | XMS_ITS | Referral Summary ---
Author Organization [facility] Address [address] [place] [address] Care Team Providers Care Instructor Traffic Safety Name Role Phone Stephanie Santos MD Primary Care Provider [phone] Encounters Date Type Department Care Team Description 02/15/2024 Lab Requisition [facility] [address] [address] Outr Resulting Lab, Provider 02/15/2024 Lab Requisition [facility] [address] [address] Outr Resulting Lab, Provider 02/15/2024 Lab Requisition [facility] [address] [address] Outr Resulting Lab, Provider 11/20/2023 Refill [facility] Infectious Disease [address] [place] [address] Mecca Giraldo, RN Medications Refill from Last [...] 550mg Opthalmology- 08/2013 TSH- 1.06 HgbA1c- 7.4 USP Detailed - Marginal cord insertion echo - [...] 550mg Opthalmology- 08/2013 TSH- 1.06 HgbA1c- 7.4 USP Detailed - Marginal cord insertion echo - [...] Plan: Surgery L4L5- herniated disc- Dr. Betina Flexeryl and occasional tylenol for control Rh negative state in antepartum period 4 Overview: Screen at 28 wks with Rhogam Last Assessment & Plan: Screen at 28 wks with Rhogam Obesity complicating pregnan cy, childbirth, or puerperium, antepartum 12/11/2013 Overview: BMI- 32 discussed wt ICD10 Update Auto Replacement Episodic mood disorder ([facility]) 05/07/2013 Overview: ICD10 Update Auto Replacement Suicide attempt by drug ingestion ([facility]) 12/2013 Suicidal ideation 05/01/2013 Insulin overdose [...] adul t 02/15/2005 Type 2 diabetes mellitus ([facility]) 02/15/2005 Resolved Problems Problem Noted Date [...] for T21, T13, T18 Influenza vaccination 02/22/2014 USP Detailed: marginal umbilical cord insertion Rhogam given 02/22/2014 Tdap vaccination 04/09/14 [ ] GBS pending [ ] Contraception UPHOLSTERER OUTSIDE - nights L&D Last Assessment & Plan: Dating: LMP consistent with a 6 week ultrasound labs Rh A negative / Abs negative /Rubella Immune / Varicella Immune / HepB negative / HIV negative / RPR NR Pap: Negative with neg HR HPV G/C: Negative Urine cx: Negative Aneuploidy screening: NIPT low risk for T21, T13, T18 Influenza vaccination 02/22/2014 USP Detailed: marginal umbilical cord insertion Rhogam given 02/22/2014 Tdap vaccination 04/09/14 [ ] GBS pending [ ] Contraception UPHOLSTERER OUTSIDE - nights L&D The patient was sent [...] Component Type 2 diabetes mellitus ([facility]) 8.7(07/07/2015 5:05 EST) Annmarie [employer] Implanted Type Area Outbound Sales Consultant Device Identifier Shelf Expiration Date Model / Serial / Lot Mirena Iud-Mr Safe To 3t Description:Pt has a Mirena IUD as of 08-07-11 safe to 3T per safety manual 2012; [facility] Procedures Procedure Name Priority Date/Time Associated Diagnosis Comments HEPATITIS B CORE ANTIBODY (TOTAL) Routine 02/14/2024 14:30 EDT HEPATITIS C AB W REFLEX TO HCV RNA BY PCR Routine 02/14/2024 14:30 EDT HIV 1/2 ANTIGEN AND ANTIBODY, 4TH GENERATION Routine 02/14/2024 14:30 EDT CHLAMYDIA/N. GONORRHOEAE AMPLIFIED NUCLEIC ACID Routine 02/14/2024 14:30 EDT URINE [id number] E RATIO (ACR) Routine 07/07/2019 11:39 EDT Uncontrolled type 2 diabetes mellitus with hyperglycemia ([facility]) LIPID PROFILE (INCLUDES CHOLESTEROL, TRIGLYCERIDES, HDL, LDL) Routine 07/07/2019 11:37 EDT Uncontrolled type 2 diabetes mellitus with hyperglycemia ([facility]) HEMOGLOBIN A1C Routine 07/07/2015 5:05 EST from Last 3 Months or Most Recently Relevant to Health Maintenance Results * CHLAMYDIA/N. GONORRHOEAE AMPLIFIED NUCLEIC ACID (02/14/2024 14:30 EDT) Neisseria gonorrhoeae Result Negative Negative 02/17/2024 12:25 EDT [facility] Chlamydia trachomatis Result Negative Negative 02/17/2024 12:25 EDT [facility] Urine 02/14/2024 14:3 0 EDT 02/16/2024 16:32 EDT Narrative [facility] - 02/17/2024 12:25 EDT A first catch urine specimen is acceptable for detection of Gonorrhea and Chlamydia, but might detect up to 10% fewer infections when compared with vaginal swab samples. Provider Outr Resulting Lab MICROBIOLOGY - GENERAL ORDERABLES [facility] [address] [place] [id number] * HEPATITIS C AB W REFLEX TO HCV RNA BY PCR (02/14/2024 14:30 EDT) Hep C Antibody Negative Negative 02/17/2024 11:15 EDT [facility] Blood VENOUS BLOOD / Unknown 02/14/2024 14:30 EDT 02/15/2024 21:33 EDT Provider Outr Resulting Lab CHEMISTRY & BLOOD GAS ORDERABLES Performing Organization Address City/[facility]/ZIP Co de Phone Number [facility] [address], [place] [id number] * HEPATITIS B CORE ANTIBODY (TOTAL) (02/14/2024 14:30 EDT) [facility] Hepatitis B Core Ab, Total Negative Negative 02/17/2024 11:34 EDT [facility] Blood VENOUS BLOOD / Unknown 02/14/2024 14:30 EDT 02/15/2024 21:33 EDT Provider Outr Resulting Lab CHEMISTRY & BLOOD GAS ORDERABLES Performing Organization Address [facility] Co de Phone Number [facility] [address] [place] [address] * HIV 1/2 ANTIGEN AND ANTIBODY, 4TH GENERATION (02/14/2024 14:30 EDT) [facility] HIV 1 and 2 Antibody/p24 Antigen, 4th Generation Negative Negative 02/17/2024 11:42 EDT [facility] Comment:If acute HIV-1 infec tion is suspected in a high risk patient, submit plasma specimen for HIV-1 RNA quantitation test. Blood VENOUS BLOOD / Unknown 02/14/2024 14:30 EDT 02/15/2024 21:33 EDT Narrative [facility] - 02/17/2024 11:42 EDT Fourth Generation assay performed on the Siemens Centaur XPT. Provider Outr Resulting Lab IMMUNOLOGY A ND SEROLOGY ORDERABLES Performing Organization Address [facility]/ZIP Co de Phone Number [facility] [address], [place] [phone] * ALBUMIN, URINE (07/07/2019 11:39 EDT) [facility] Albumin, Urine <0.6 See Note mg/dL 2019 15:16 EDT [facility] Comment: NOTE: Reference range not established Creatinine, Urine 30.4 See Note mg/dL 07/07/2019 15:16 [facility] Comment: NOTE: Reference range not established Lab Urine Albumin to Creatinine Ratio <20 <30 ug/mg Creatinine 07/07/2019 15:16 [facility] Comment: Urine Albumin/Creatinine Ratio: Normal: <30 ug/mg Creatinine Moderately increased albuminuria: 30-30 ug/mg Creatinine Terrence increased albuminuria: >300 ug/mg Creatinine Urine URINE SPECIMEN OBTAINED BY CLEAN CATCH PROCEDURE / Unknown Urine Collect / Unknown 07/07/2019 11:39 EDT 07/07/2019 11:40 EDT Tio Ray MD CHEMISTRY & BLOOD GAS ORDERABLES [facility] [address] [place] [address] * LIPID PROFILE (INCLUDES CHOLESTEROL, TRIGLYCERIDES, HDL, LDL) (07/07/2019 11:37 EDT) Cholesterol 301 See Note mg/dL 07/07/2019 16:22 [facility] Comment: Acceptable: ?<200 mg/dL Borderline High: 200-239 mg/dL High: ?> or = 240 mg/dL HDL 56 See Note mg/dL 07/07/2019 16:22 [facility] Comment: Low: ? <40 mg/dL Normal: ??40-60 mg/dL High: ?>60 mg/dL LDL, Calculated 0 16:22 [facility] Comment: Optimal: ? <100 mg/dL Near Optimal: ?100-129 mg/dL Borderline High: 130-159 mg/dL High: ?160-189 mg/dL Very High: ? > or = 190 mg/dL Calculated LDL invalid, triglycerides >400 mg/dL Direct LDL measurement added by reflex. Triglyceride 742 See Note mg/dL 07/07/2019 16:22 [facility] Comment: Normal: ? <150 mg/dL Borderline High: ??150 - 199 mg/dL High: ? 200 - 499 mg/dL Very High: ?> or = 500 mg/dL Chol/HDL Ratio 5.4 See Note 07/07/2019 16:22 EDT [facility] Comment: No reference range has been established for CHOL/HDL ratio. Non HDL Cholesterol 245 See Note mg/dL 07/07/2019 16:22 EDT [facility] Comment: Desirable: ?<130 mg/dL Borderline High: ??130-159 mg/dL High: ? 160-189 mg/dL Very High: ?> or = 190 mg/dL Blood VENOUS BLOOD / Unknown Venipuncture / Unknown 07/07/2019 11:37 EDT 07/07/2019 11:40 EDT Narrative [facility] - 07/07/2019 16:22 EDT 1 Tio Ray MD CHEMISTRY & BLOOD GAS ORDERABLES [facility] [address] [place] [address] * HEMOGLOBIN A1C (07/07/2015 5:05 EST) Hemoglobin A1C 8.7 % 07/08/2015 10:09 EST [facility] Comment: Reference Range: <5.7% Normal 5.7-6.4% Increased risk for diabetes =>6.5% Diagnostic for diabetes (if confirmed) The A1c goal for non adults in general is <7%. The A1c goal for selected patients may be significantly lower than 7% if this can be achieved without significant hypoglycemia or other adverse effects of treatment. Est Avg Glucose 203 mg/dl 6 10:09 EST [facility] Comment: eAG represents the A1c result expressed as average glucose in mg/dl. BLOOD SPECIMEN / Unknown 07/07/2015 5:05 EST 07/07/2015 17:13 EST Annette Sidhu LADIES SUIT OPERATOR CHEMISTRY & BLOOD GA S ORDERABLES [facility] [address] [place] [address] from Last 3 Months or Most Recently Relevant to Health Maintenance Administered Medications Additional Health Concerns Infection Onset Date Last Indicated MRSA Comment:IP note: risk factors - DM, obesity Pos sinus 06/30/17 M Ch[place] 07/01/17 07/01/2017 07/01/2017 Advance Directives For more information, please contact: [phone] * Full Code (Latest Code Status on [...] the discussion? Not Discusse d Care Teams Instructor Traffic Safety Relationship Specialty Start Date End Date Stephanie Santos MD [address] [place] [id number] PCP - General Family Medicine - Primary Care 11/11/23
--- OUTSIDE RECORDS SUMMARY | 2024-02-17 18:38 | XMS_ITS | Clinical Summary ---
Author Organization [facility] Address [address] [place] [address] Care Team Providers Care Dry Boss Name Role Phone Stephanie Santos MD Primary Care Provider [phone] Allergies Active Allergy Reactions Criticality Noted Date [...] 11/11/2023 meningococcal conjugate MCV40 (MENVEO) IM kitIndications:Cornelius casisdy advice encounter,Need for prophylactic vaccination and inoculation [...] 550mg Opthalmology- 08/2013 TSH- 1.06 HgbA1c- 7.4 MCC Detailed - Marginal cord insertion echo - [...] 550mg Opthalmology- 08/2013 TSH- 1.06 HgbA1c- 7.4 MCC Detailed - Marginal cord insertion echo - [...] ICD10 Update Auto Replacement Episodic mood disorder ([facility]) 05/07/2013 Overview: ICD10 Update Auto Replacement Suicide attempt by drug ingestion ([facility]) 12/2013 Suicidal ideation 05/01/2013 Insulin overdose [...] adul t 02/15/2005 Type 2 diabetes mellitus ([facility]) 02/15/2005 Resolved Problems Problem Noted Date Diagnosed [...] for T21, T13, T18 Influenza vaccination 02/22/2014 MCC Detailed: marginal umbilical cord insertion Rhogam given 02/22/2014 Tdap vaccination 04/09/14 [ ] GBS pending [ ] Contraception BELT MEASURER - nights L&D Last Assessment & Plan: Dating: LMP consistent with a 6 week ultrasound labs Rh A negative / Abs negative /Rubella Immune / Varicella Immune / HepB negative / HIV negative / RPR NR Pap: Negative with neg HR HPV G/C: Negative Urine cx: Negative Aneuploidy screening: NIPT low risk for T21, T13, T18 Influenza vaccination 02/22/2014 MCC Detailed: marginal umbilical cord insertion Rhogam given 02/22/2014 Tdap vaccination 04/09/14 [ ] GBS pending [ ] Contraception BELT MEASURER - nights L&D The patient was sent to L&D for extended monitoring. tachycardia Encounters Date Type Department Care Team Description 02/15/2024 Lab Requisition [facility] [place] [address] Outr Resulting Lab, Provider 02/15/2024 Lab Requisition [facility] [address] [address] Outr Resulting Lab, Provider 02/15/2024 Lab Requisition [facility] [address] [address] Outr Resulting Lab, Provider 11/20/2023 Refill [facility] Infectious Disease [address], [place] [address] Mecca Giraldo, RN Medications Refill from Last [...] mplications 02/15/2005 Routine general medical examination at [facility] facility 02/15/2005 Polycystic ovaries 01/21/2008 Fatigue Wears glasses Back pain Anxiety LBP (low back pain) 11/14/2010 Depression TIDWELL (headache) Joint pain Arm numbness Hyperlipidemia 09/04/2011 Hip pain High cholesterol Asthma Hypertension Family History Medical History Relation Comments Cancer Maternal Aunt breast cancer Cancer Maternal Grandmother breats canc er Diabetes Paternal Grandfather Diabetes Paternal Grandmother [...] 3 3 Date Outcome GA Total Labor Labor//3rd Weight Sex Type Anes PTL Vane A1 A5 Name Clin 1994 SAB 4w0 d 1998 Term CS-Un spec N Livin g 2007 Term CS-Un spec Livin g 2014 36w 2d 3487 g (7 lb 11 oz) F CS-LT ranv Spinal Livin g 5 7 GINGER PAREDES, Radha garnica MD Delivery Location:[facility] Last Filed Vital Signs Vital [...] 11/21/2012, 06/26/2011, Additional history exists COVID-19 Vaccine (2023-2 5 season) 2023 Hepatitis C Screen Completed 02/14/2024, 0 11/11/2023, 08/24/2023, Additional history exists Goals Goal Patient Goal Type Associated Problems Recent Progress Patient-Stated? Author HEMOGLOBIN A1C < 7.0 Result Component Type 2 diabetes mellitus (HCC-CMS) 8.7(07/07/2015 5:05 EST) Annmarie Lopez Medical Devices Implanted Type Area Computerized Mill Mill Recorder Device Identifier Shelf Expiration Date Model / Serial / Lot Mirena Iud-Mr Safe To 3t Description:Pt has a Mirena IUD as of 08-07-11 safe to 3T per safety manual 2012; [employer] [facility] Procedures Procedure Name Priority Date/Time Associated Diagnosis Comments HEPATITIS B CORE ANTIBODY (TOTAL) Routine 02/14/2024 14:30 EDT HEPATITIS C AB W REFLEX TO HCV RNA BY PCR Routine 02/14/2024 14:30 EDT HIV 1/2 ANTIGEN AND ANTIBODY, 4TH GENERATION Routine 02/14/2024 14:30 EDT CHLAMYDIA/N. GONORRHOEAE AMPLIFIED NUCLEIC ACID Routine 02/14/2024 14:30 EDT URINE [id number]-LP-[id number] E RATIO (ACR) Routine 07/07/2019 11:39 EDT Uncontrolled type 2 diabetes mellitus with hyperglycemia ([facility]) LIPID PROFILE (INCLUDES CHOLESTEROL, TRIGLYCERIDES, HDL, LDL) Routine 07/07/2019 11:37 EDT Uncontrolled type 2 diabetes mellitus with hyperglycemia ([facility]) HEMOGLOBIN A1C Routine 07/07/2015 5:05 EST from Last 3 Months or Most Recently Relevant to Health Maintenance Results * CHLAMYDIA/N. GONORRHOEAE AMPLIFIED NUCLEIC ACID (02/14/2024 14:30 EDT) Neisseria gonorrhoeae Result Negative Negative 02/17/2024 12:25 EDT [facility] Chlamydia trachomatis Result Negative Negative 02/17/2024 12:25 EDT [facility] Urine 02/14/2024 14:3 0 EDT 02/16/2024 16:32 EDT Narrative [facility] - 02/17/2024 12:25 EDT A first catch urine specimen is acceptable for detection of Gonorrhea and Chlamydia, but might detect up to 10% fewer infections when compared with vaginal swab samples. Provider Outr Resulting Lab MICROBIOLOGY - GENERAL ORDERABLES Performing Organization Address City/[facility]/ZIP Co de Phone Number [facility] [address] [place] [phone] * HEPATITIS C AB W REFLEX TO HCV RNA BY PCR (02/14/2024 14:30 EDT) Hep C Antibody Negative Negative 02/17/2024 11:15 EDT [facility] Blood VENOUS BLOOD / Unknown 02/14/2024 14:30 EDT 02/15/2024 21:33 EDT Provider Outr Resulting Lab CHEMISTRY & BLOOD GAS ORDERABLES Performing Organization Address [facility]/ZIP Co de Phone Number [facility] [address] [place] [phone] * HEPATITIS B CORE ANTIBODY (TOTAL) (02/14/2024 14:30 EDT) Hepatitis B Core Ab, Total Negative Negative 02/17/2024 11:34 EDT [facility] Blood VENOUS BLOOD / Unknown 02/14/2024 14:30 EDT 02/15/2024 21:33 EDT Provider Outr Resulting Lab CHEMISTRY & BLOOD GAS ORDERABLES Performing Organization Address City/[facility]/ZIP Co de Phone Number [facility] [address] [place] [address] * HIV 1/2 ANTIGEN AND ANTIBODY, 4TH GENERATION (02/14/2024 14:30 EDT) HIV 1 and 2 Antibody/p24 Antigen, 4th Generation Negative Negative 02/17/2024 11:42 EDT [facility] Comment:If acute HIV-1 infec tion is suspected in a high risk patient, submit plasma specimen for HIV-1 RNA quantitation test. Blood VENOUS BLOOD / Unknown 02/14/2024 14:30 EDT 02/15/2024 21:33 EDT Narrative [facility] - 02/17/2024 11:42 EDT Fourth Generation assay performed on the [employer] XPT. Provider Outr Resulting Lab IMMUNOLOGY A ND SEROLOGY ORDERABLES Performing Organization Address City/[facility]/ZIP Co de Phone Number [facility] [address] [place] [address] * ALBUMIN, URINE (07/07/2019 11:39 EDT) Albumin, Urine <0.6 See Note mg/dL 2019 15:16 EDT [facility] Comment: NOTE: Reference range not established Creatinine, Urine 30.4 See Note mg/dL 07/07/2019 15:16 T [facility] Comment: NOTE: Reference range not established Lab Urine Albumin to Creatinine Ratio <20 <30 ug/mg Creatinine 07/07/2019 15:16 EDT [facility] Comment: Urine Albumin/Creatinine Ratio: Normal: <30 ug/mg Creatinine Moderately increased albuminuria: 30-30 ug/mg Creatinine Severley increased albuminuria: >300 ug/mg Creatinine Urine URINE SPECIMEN OBTAINED BY CLEAN CATCH PROCEDURE / Unknown Urine Collect / Unknown 07/07/2019 11:39 EDT 07/07/2019 11:40 EDT Tio Ray MD CHEMISTRY & BLOOD GAS ORDERABLES Performing Organization Address City/[facility]/ZIP Co de Phone Number [facility] [address] [place] [address] * LIPID PROFILE (INCLUDES CHOLESTEROL, TRIGLYCERIDES, HDL, LDL) (07/07/2019 11:37 EDT) [facility] Signature Cholesterol 301 See Note mg/dL 07/07/2019 16:22 [facility] Comment: Acceptable: ?<200 mg/dL Borderline High: 200-239 mg/dL High: ?> or = 240 mg/dL HDL 56 See Note mg/dL 07/07/2019 16:22 [facility] Comment: Low: ? <40 mg/dL Normal: ??40-60 mg/dL High: ?>60 mg/dL LDL, Calculated 0 16:22 [facility] Comment: Optimal: ? <100 mg/dL Near Optimal: ?100-129 mg/dL Borderline High: 130-159 mg/dL High: ?160-189 mg/dL Very High: ? > or = 190 mg/dL Calculated LDL invalid, triglycerides >400 mg/dL Direct LDL measurement added by reflex. Triglyceride 742 See Note mg/dL 07/07/2019 16:22 [facility] Comment: Normal: ? <150 mg/dL Borderline High: ??150 - 199 mg/dL High: ? 200 - 499 mg/dL Very High: ?> or = 500 mg/dL Chol/HDL Ratio 5.4 See Note 07/07/2019 16:22 [facility] Comment: No reference range has been established for CHOL/HDL ratio. Non HDL Cholesterol 245 See Note mg/dL 07/07/2019 16:22 [facility] Comment: Desirable: ?<130 mg/dL Borderline High: ??130-159 mg/dL High: ? 160-189 mg/dL Very High: ?> or = 190 mg/dL Blood VENOUS BLOOD / Unknown Venipuncture / Unknown 07/07/2019 11:37 EDT 07/07/2019 11:40 EDT Narrative [facility] - 07/07/2019 16:22 EDT 1 Tio Ray MD CHEMISTRY & BLOOD GAS ORDERABLES Performing Organization Address [facility] Co de Phone Number [facility] [address] [place] [address] * HEMOGLOBIN A1C (07/07/2015 5:05 EST) [facility] Hemoglobin A1C 8.7 % 07/08/2015 10:09 EST [facility] Comment: Reference Range: <5.7% Normal 5.7-6.4% Increased risk for diabetes =>6.5% Diagnostic for diabetes (if confirmed) The A1c goal for non adults in general is <7%. The A1c goal for selected patients may be significantly lower than 7% if this can be achieved without significant hypoglycemia or other adverse effects of treatment. Est Avg Glucose 203 mg/dl 6 10:09 EST [facility] Comment: eAG represents the A1c result expressed as average glucose in mg/dl. BLOOD SPECIMEN / Unknown 07/07/2015 5:05 EST 07/07/2015 17:13 EST Annette Sidhu APRN CHEMISTRY & BLOOD GA S ORDERABLES Performing Organization Address City/[facility] Co de Phone Number [facility] [address] [place] [address] from Last 3 Months or Most Recently Relevant to Health Maintenance Additional Health Concerns Infection Onset Date Last Indicated MRSA Comment:IP note: risk factors - DM, obesity Pos sinus 06/30/17 M Chito 07/01/17 07/01/2017 07/01/2017 Advance Directives For more information, please contact: [phone] * Full Code (Latest Code Status on [...] the discussion? Not Discusse d Care Teams Dry Boss Relationship Specialty Start Date End Date Stephanie Santos MD [address] [place] [address] PCP - General Family Medicine - Primary Care 11/11/23
--- OUTSIDE RECORDS SUMMARY | 2024-02-17 18:38 | XMS_ITS | Encounter Summary ---
Author Organization [facility] Address [address] [place] [address] Care Team Providers Care Copy Supervisor Name Role Phone PoojaJossie karimi RADHA Primary Care Provider Reason for Visit * Reason Onset Date Comments Appointment Related 10/23/2019 fcp Encounter Details Date Type Department Care Team (Late st Contact Info) Description 10/23/2019 Telephone [facility] Hematology & Oncology - [address] [address] Fcp, Provider, Appointment Related (fcp) Social History [...] diabetes mellitus ([facility]) 8.7(07/07/2015 5:05 EST) No Annmarie Vigil documented as of this encounter Visit Diagnoses Not on filedocumented in this encounter Additional Health Concerns Infection Onset Date Last Indicated Resolved Time MRSA Comment:IP note: risk factors - DM, obesity Pos sinus 06/30/17 M Chito 07/01/17 07/01/2017 07/01/2017 documented as of this encounter Care Teams Copy Supervisor Relationship Specialty Start Date End Date Jossie Patton APRN [address] [place] [address] PCP - General 07/07/19 11/10/23 documented as of this encounter
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
--- OUTSIDE RECORDS SUMMARY | 2024-02-17 18:38 | XMS_ITS | Encounter Summary ---
Author Organization [facility] Address [address] [place] [address] Care Team Providers Care Stile Ripsaw Operator Name Role Phone Jossie Patton APRN Primary Care Provider [phone] Stephanie Santos MD Primary Care Provider [phone] Encounter Details Date Type Department Care Team (Late st Contact Info) Description 10/18/2022 Lab Requisition [facility] Pathology & Laboratory Medicine - [address] [address] Outr Resulting Lab, Provider Social History Tobacco [...] Result Component Type 2 diabetes mellitus ([facility]) 8.7(07/07/2015 5:05 EST) No Annmarie Vigil documented as of this encounter Procedures Procedure Name Priority Date/Time Associated Diagnosis Comments CHLAMYDIA/N. GONORRHOEAE AMPLIFIED NUCLEIC ACID Routine 10/18/2022 14:40 EDT documented in this encounter Results * CHLAMYDIA/N. GONORRHOEAE AMPLIFIED RNA (10/18/2022 14:40 EDT) Neisseria gonorrhoeae Result Negative Negative 10/20/2022 13:09 EDT [facility] Chlamydia trachomatis Result Negative Negative 10/20/2022 13:09 EDT [facility] Urine URINE / Unknown 10/18/2022 1 4:40 EDT 10/19/2022 19:35 EDT Narrative [facility] - 10/20/2022 13:09 EDT A first catch urine specimen is acceptable for detection of Gonorrhea and Chlamydia, but might detect up to 10% fewer infections when compared with vaginal and endocervical swab samples. Provider Outr Resulting Lab MICROBIOLOGY - GENERAL ORDERABLES [facility] [address] [place] [address] documented in this encounter Visit Diagnoses Not on filedocumented in this encounter Additional Health Concerns Infection Onset Date Last Indicated Resolved Time MRSA Comment:IP note: risk factors - DM, obesity Pos sinus 06/30/17 M Chito 07/01/17 07/01/2017 07/01/2017 documented as of this encounter Care Teams Stile Ripsaw Operator Relationship Specialty Start Date End Date Jossie Patton APRN [address] [place] [address] PCP - General 07/07/19 11/10/23 Stephanie Santos MD [address] [place] [address] PCP - General Family Medicine - Primary Care 11/11/23 documented as of this encounter
--- OUTSIDE RECORDS SUMMARY | 2024-02-17 18:38 | XMS_ITS | Encounter Summary ---
Author Organization [facility] Address [address] [place] [address] Care Team Providers Care Robotics Specialist Name Role Phone Stephanie Santos MD Primary Care Provider [phone] Encounter Details Date Type Department Care Team (Late st Contact Info) Description 02/15/2024 Lab Requisition [facility] Pathology & Laboratory Medicine - [address] [address] Outr Resulting Lab, Provider Social History Tobacco [...] Type 2 diabetes mellitus ([facility]) 8.7(07/07/2015 5:05 EST) No Annmarie Vigil documented as of this encounter Procedures Procedure Name Priority Date/Time Associated Diagnosis Comments HIV 1/2 ANTIGEN AND ANTIBODY, 4TH GENERATION Routine 02/14/2024 14:30 EDT documented in this encounter Results * HIV 1/2 ANTIGEN AND ANTIBODY, 4TH GENERATION (02/14/2024 14:30 EDT) HIV 1 and 2 Antibody/p24 Antigen, 4th Generation Negative Negative 02/17/2024 11:42 EDT [facility] Comment:If acute HIV-1 infec tion is suspected in a high risk patient, submit plasma specimen for HIV-1 RNA quantitation test. Blood VENOUS BLOOD / Unknown 02/14/2024 14:30 EDT 02/15/2024 21:33 EDT Narrative [facility] - 02/17/2024 11:42 EDT Fourth Generation assay performed on the Siemens Centaur XPT. Provider Outr Resulting Lab IMMUNOLOGY A ND SEROLOGY ORDERABLES [facility] [address] [place] [address] documented in this encounter Visit Diagnoses Not on filedocumented in this encounter Additional Health Concerns Infection Onset Date Last Indicated Resolved Time MRSA Comment:IP note: risk factors - DM, obesity Pos sinus 06/30/17 M Chito 07/01/17 07/01/2017 07/01/2017 documented as of this encounter Care Teams Robotics Specialist Relationship Specialty Start Date End Date Stephanie Santos MD [address] [place] [address] PCP - General Family Medicine - Primary Care 11/11/23 documented as of this encounter
--- OUTSIDE RECORDS SUMMARY | 2024-02-17 18:38 | XMS_ITS | Encounter Summary ---
Author Organization [facility] Address [address] [place] [address] Care Team Providers Care Process Eng Name Role Phone Jossie Patton APRN Primary Care Provider Stephanie Santos MD Primary Care Provider [phone] Encounter Details Date Type Department Care Team (Late st Contact Info) Description 10/19/2022 Lab Requisition [facility] Pathology & Laboratory Medicine - [address] [address] Stephanie Santos MD [address] [place], [place] [address] Encounter for screening for malignant neoplasm of [...] Type 2 diabetes mellitus ([facility]) [...] types, PCR Negative Negative 11/06/2022 16:45 EDT [facility] Comment:No E6 or E7 mRNA is detected from HPV types 16,18,31,33,35,39,45,51,52,56,58,59,66, and 68 by insurance case manager mediated amplification. Papanicolaou smear specimen (specimen) CERVIX UTERI STRUCTURE / Unknown 10/18/2022 14:30 EDT 11/05/2022 13:53 EDT Stephanie Santos MD MICROBIOLOGY - GENER AL ORDERABLES [facility] [address] [place] [address] * PAP TEST (10/18/2022 14:30 EDT) Specimens A. Cervix and/or Endocervix VAGINAL / CERVICAL/ENDOCERV ICAL, ThinPrep Imaging System with Manual Evaluation 11/06/2022 16:45 EDT [facility] Specimen Adequacy Satisfactory for Evaluation - transformation zone component absent 11/06/2022 16:45 EDT [facility] General Categorization Negative for intraepithelial lesion or malignancy 11/06/2022 16:45 EDT [facility] Attestation . 11/06/2022 16:45 T [facility] at 1645 Clinical History See below 11/07/19 16:45 EDT [facility] HPV The result for the Human Papillomavirus (HPV) Detection-High Risk Types is Negative. No E6 or E7 mRNA is detected from HPV types 16,18,31,33,35,39 ,45,51,52,56,58,5 9,66, and 68 by insurance case manager mediated amplification.Chiquis ting was performed on specimen [id number] and was resulted on 11/06/2022 1645 EDT by SRINI, LAB INSTRUMENT RESULTS IN 11/06/2022 16:45 EDT [facility] Performing Lab [facility] 11/06/2022 16:45 EDT [facility] Scanned Images 11/06/2022 16:45 EDT [facility] Papanicolaou smear specimen (specimen) CERVIX UTERI STRUCTURE / Unknown 10/18/2022 14:30 EDT 10/22/2022 13:40 EDT Stephanie Santos MD PATHOLOGY ORDERABLES [facility] [address] [place] [address] * CHLAMYDIA/N. GONORRHOEAE AMPLIFIED RNA, THINPREP (10/18/2022 14:30 EDT) Neisseria gonorrhoeae Result Negative Negative 10/22/2022 14:25 EDT [facility] Chlamydia trachomatis Result Negative Negative 10/22/2022 14:25 EDT [facility] Papanicolaou smear specimen (specimen) CERVIX UTERI STRUCTURE / Unknown 10/18/2022 14:30 EDT 10/22/2022 8:31 EDT Stephanie Santos MD MICROBIOLOGY - GENER AL ORDERABLES [facility] [address] [place] [address] documented in this encounter Visit Diagnoses Diagnosis [...] documented as of this encounter Care Teams Process Eng Relationship Specialty Start Date End Date Jossie Patton APRN [address] [place] [phone] PCP - General 07/07/19 11/10/23 Stephanie Santos MD [address] [place] [address] PCP - General Family Medicine - Primary Care 11/11/23 documented as of this encounter
--- OUTSIDE RECORDS SUMMARY | 2024-02-17 18:38 | XMS_ITS | Encounter Summary ---
Author Organization [facility] Address [address] [place] [address] Care Team Providers Care Emergency Communications Dispatcher Name Role Phone Jossie Patton APRN Primary Care Provider [phone] Stephanie Santos MD Primary Care Provider [phone] Encounter Details Date Type Department Care Team (Late st Contact Info) Description 07/30/2020 Lab Requisition [facility] Pathology & Laboratory Medicine - [address] [address] Outr Resulting Lab, Provider Social History Tobacco [...] Component Type 2 diabetes mellitus ([facility]) 8.7(07/07/2015 5:05 EST) No Annmarie Vigil documented as of this encounter Procedures Procedure Name Priority Date/Time Associated Diagnosis Comments VITAMIN B12 Routine 07/30/2020 8:45 EDT documented in this encounter Results * VITAMIN B12 (07/30/2020 8:45 EDT) Vitamin B12 370 211 - 911 pg/mL 08/01/2020 10:48 EDT [facility] Blood VENOUS BLOOD / Unknown 07/30/2020 8:45 EDT 07/31/2020 16:22 EDT Provider Outr Resulting Lab CHEMISTRY & BLOOD GAS ORDERABLES [facility] [address] [place] [address] documented in this encounter Visit Diagnoses Not on filedocumented in this encounter Additional Health Concerns Infection Onset Date Last Indicated Resolved Time MRSA Comment:IP note: risk factors - DM, obesity Pos sinus 06/30/17 M Chito 07/01/17 07/01/2017 07/01/2017 documented as of this encounter Care Teams Emergency Communications Dispatcher Relationship Specialty Start Date End Date Jossie Patton APRN [address] [place] [phone] PCP - General 07/07/19 11/10/23 Stephanie Santos MD [address] [place] [address] PCP - General Family Medicine - Primary Care 11/11/23 documented as of this encounter
--- OUTSIDE RECORDS SUMMARY | 2024-02-17 18:38 | XMS_ITS | Encounter Summary ---
Author Organization [facility] Address [address] [place] [address] Care Team Providers Care Trash Collector Name Role Phone Jossie Patton APRN Primary Care Provider [phone] Reason for Visit * Reason Comments Otitis Externa right ear x 4 weeks constant. 3 different ear drops and oral antibiotics with no relief. symptoms moderate . can hear ok . came on suddenly questioned yeast * Referral (Routine) - Closed Specialty Diagnoses / Procedures Referred By Savannah ashton Referred To Contact Otolaryngology Diagnoses Otitis externa Jossie Patton APRN [address] [place] [address] Ron Sutton MD [address] [place] [id number] Referral ID Status Reason Start Date Expiration Date Visits Re quested Visits Authorized [id number] Closed 1 1 Encounter Details Date Type Department Care Team (Late st Contact Info) Description 10/21/2020 9:40 EDT Office Visit [facility] [address] [place] [address] Ron Sutton MD [address] [place] [phone] Right ear pain (Primary Dx); TMJ [...] Gatherings with Friends and Family: ??? Attends Restoration Services: ??? Active Member of Clubs or [...] 2 diabetes mellitus ([facility]) 8.7(07/07/2015 5:05 EST) Annmarie Lopez documented as [...] documented as of this encounter Care Teams Trash Collector Relationship Specialty Start Date End Date Jossie Patton APRN [address] [place] [phone] PCP - General 07/07/19 11/10/23 documented as of this encounter
--- OUTSIDE RECORDS SUMMARY | 2024-02-17 18:38 | XMS_ITS | Encounter Summary ---
Author Organization [facility] Address [address] [place] [address] Care Team Providers Care Warehouse Trainer Name Role Phone Stephanie Santos MD Primary Care Provider [phone] Encounter Details Date Type Department Care Team [...] mellitus ([facility]) 8.7(07/07/2015 5:05 EST) Annmarie Lopez documented as of this encounter Visit Diagnoses Not on filedocumented in this encounter Additional Health Concerns Infection Onset Date Last Indicated Resolved Time MRSA Comment:IP note: risk factors - DM, obesity Pos sinus 06/30/17 M Chito 07/01/17 07/01/2017 07/01/2017 documented as of this encounter Care Teams Warehouse Trainer Relationship Specialty Start Date End Date Stephanie Santos MD [address] [place] [address] PCP - General Family Medicine - Primary Care 11/11/23 documented as of this encounter
--- OUTSIDE RECORDS SUMMARY | 2024-02-17 18:38 | XMS_ITS | Encounter Summary ---
Author Organization [facility] Address [address] [place] [address] Care Team Providers Care Simonizer Name Role Phone Jossie Patton APRN Primary Care Provider [phone] Stephanie Santos MD Primary Care Provider [phone] Encounter Details Date Type Department Care Team (Late st Contact Info) Description 03/09/2023 Lab Requisition [facility] Pathology & Laboratory Medicine - [address] [address] Outr Resulting Lab, Provider Social History Tobacco [...] Component Type 2 diabetes mellitus ([facility]) 8.7(07/07/2015 5:05 EST) No Annmarie Vigil documented as of this encounter Procedures Procedure Name Priority Date/Time Associated Diagnosis Comments HIV 1/2 ANTIGEN AND ANTIBODY, 4TH GENERATION Routine 03/08/2023 15:45 EST documented in this encounter Results * HIV 1/2 ANTIGEN AND ANTIBODY, 4TH GENERATION (03/08/2023 15:45 EST) HIV 1 and 2 Antibody/p24 Antigen, 4th Generation Negative Negative 03/11/2023 10:52 EST [facility] Comment:If acute HIV-1 infec tion is suspected in a high risk patient, submit plasma specimen for HIV-1 RNA quantitation test. Blood VENOUS BLOOD / Unknown 03/08/2023 15:45 EST 03/09/2023 21:19 EST Narrative [facility] - 03/11/2023 10:52 EST Fourth Generation assay performed on the Siemens Centaur XPT. Provider Outr Resulting Lab IMMUNOLOGY A ND SEROLOGY ORDERABLES [facility] [address] [place] [address] documented in this encounter Visit Diagnoses Not on filedocumented in this encounter Additional Health Concerns Infection Onset Date Last Indicated Resolved Time MRSA Comment:IP note: risk factors - DM, obesity Pos sinus 06/30/17 M Chito 07/01/17 07/01/2017 07/01/2017 documented as of this encounter Care Teams Simonizer Relationship Specialty Start Date End Date Jossie Patton APRN [address] [place] [address] PCP - General 07/07/19 11/10/23 Stephanie Santos MD [address] [place] [address] PCP - General Family Medicine - Primary Care 11/11/23 documented as of this encounter
--- OUTSIDE RECORDS SUMMARY | 2024-02-17 18:38 | XMS_ITS | Encounter Summary ---
Author Organization [facility] Address [address] [place] [address] Care Team Providers Care Personal Computer Specialist Name Role Phone Jossie Patton APRN Primary Care Provider [phone] Stephanie Santos MD Primary Care Provider [phone] Encounter Details Date Type Department Care Team (Late st Contact Info) Description 08/23/2023 Lab Requisition [facility] Pathology & Laboratory Medicine - [address] [address] Outr Resulting Lab, Provider Social History Tobacco [...] Component Type 2 diabetes mellitus ([facility]) 8.7(07/07/2015 5:05 EST) No Annmarie Vigil documented as of this encounter Procedures Procedure Name Priority Date/Time Associated Diagnosis Comments VAGINAL CTGC AND VAGINITIS/VAGINOSIS MOLECULAR DETECTION Routine 08/23/2023 10:00 EDT documented in this encounter Results * (ABNORMAL) VAGINAL CTGC AND VAGINITIS/VAGINOSIS MOLECULAR DETECTION (08/23/2023 10:00 EDT) Sushma glabrata Positive(A) Negative 08/24/2023 13:34 EDT [facility] Trichomonas Vaginalis Negative Negative 08/24/2023 13:34 EDT [facility] BV (Bacterial vaginosis) Negative Negative 08/24/2023 13:34 EDT [facility] Neisseria gonorrhoeae Result Negative Negative 08/24/2023 13:34 EDT [facility] Chlamydia trachomatis Result Negative Negative 08/24/2023 13:34 T [facility] Sushma Species Positive(A) Negative 08/24/19 13:34 EDT [facility] Swab VAGINAL STRUCTURE / Unknown 08/23/2023 10:00 EDT 08/23/2023 22:12 EDT Provider Outr Resulting Lab MICROBIOLOGY - GENERAL ORDERABLES [facility] [address] [place] [address] documented in this encounter Visit Diagnoses Not on filedocumented in this encounter Additional Health Concerns Infection Onset Date Last Indicated Resolved Time MRSA Comment:IP note: risk factors - DM, obesity Pos sinus 06/30/17 M Chito 07/01/17 07/01/2017 07/01/2017 documented as of this encounter Care Teams Personal Computer Specialist Relationship Specialty Start Date End Date Jossie Patton APRN [address] [place] [address] PCP - General 07/07/19 11/10/23 Stephanie Santos MD [address] [place] [address] PCP - General Family Medicine - Primary Care 11/11/23 documented as of this encounter
--- OUTSIDE RECORDS SUMMARY | 2024-02-17 18:38 | XMS_ITS | Encounter Summary ---
Author Organization [facility] Address [address] [place] [address] Care Team Providers Care Commissary Production Supervisor Name Role Phone Jossie Patton APRN Primary Care Provider [phone] Stephanie Santos MD Primary Care Provider [phone] Encounter Details Date Type Department Care Team (Late st Contact Info) Description 08/24/2023 Lab Requisition [facility] Pathology & Laboratory Medicine - [address] [address] Outr Resulting Lab, Provider Social History Tobacco [...] Ab, Total Negative Negative 08/26/2023 9:40 EDT [facility] Blood VENOUS BLOOD / Unknown 08/24/2023 7:46 EDT 08/24/2023 21:24 EDT Provider Outr Resulting Lab CHEMISTRY & BLOOD GAS ORDERABLES [facility] [address] [place] [address] documented in this encounter Visit Diagnoses Not on filedocumented in this encounter Additional Health Concerns Infection Onset Date Last Indicated Resolved Time MRSA Comment:IP note: risk factors - DM, obesity Pos sinus 06/30/17 M Chito 07/01/17 07/01/2017 07/01/2017 documented as of this encounter Care Teams Commissary Production Supervisor Relationship Specialty Start Date End Date Jossie Patton APRN [address] [place] [phone] PCP - General 07/07/19 11/10/23 Stephanie Santos MD [address] [place] [address] PCP - General Family Medicine - Primary Care 11/11/23 documented as of this encounter
--- OUTSIDE RECORDS SUMMARY | 2024-02-17 18:38 | XMS_ITS | Encounter Summary ---
Author Organization [facility] Address [address] [place] [address] Care Team Providers Care Automatic Head Sawyer Name Role Phone Jossie Patton APRN Primary Care Provider [phone] Stephanie Santos MD Primary Care Provider [phone] Encounter Details Date Type Department Care Team (Late st Contact Info) Description 03/09/2023 Lab Requisition [facility] Pathology & Laboratory Medicine - [address] [address] Outr Resulting Lab, Provider Social History Tobacco [...] diabetes mellitus ([facility]) 8.7(07/07/2015 5:05 EST) No Annmarie Vigil documented as of this encounter Procedures Procedure Name Priority Date/Time Associated Diagnosis Comments CHLAMYDIA/N. GONORRHOEAE AMPLIFIED NUCLEIC ACID Routine 03/08/2023 15:45 EST documented in this encounter Results * CHLAMYDIA/N. GONORRHOEAE AMPLIFIED RNA (03/08/2023 15:45 EST) Neisseria gonorrhoeae Result Negative Negative 03/11/2023 13:12 EST [facility] Chlamydia trachomatis Result Negative Negative 03/11/2023 13:12 EST [facility] Urine URINE / Unknown 03/08/2023 1 5:45 EST 03/10/2023 17:52 EST Narrative [facility] - 03/11/2023 13:12 EST A first catch urine specimen is acceptable for detection of Gonorrhea and Chlamydia, but might detect up to 10% fewer infections when compared with vaginal and endocervical swab samples. Provider Outr Resulting Lab MICROBIOLOGY - GENERAL ORDERABLES [facility] [address] [place] [address] documented in this encounter Visit Diagnoses Not on filedocumented in this encounter Additional Health Concerns Infection Onset Date Last Indicated Resolved Time MRSA Comment:IP note: risk factors - DM, obesity Pos sinus 06/30/17 M Chito 07/01/17 07/01/2017 07/01/2017 documented as of this encounter Care Teams Automatic Head Sawyer Relationship Specialty Start Date End Date Jossie Patton APRN [address] [place] [address] PCP - General 07/07/19 11/10/23 Stephanie Santos MD [address] [place] [address] PCP - General Family Medicine - Primary Care 11/11/23 documented as of this encounter
--- OUTSIDE RECORDS SUMMARY | 2024-02-17 18:38 | XMS_ITS | Encounter Summary ---
Author Organization [facility] Address [address] [place] [address] Care Team Providers Care Panel Flow Machine Operator Name Role Phone Jossie Patton APRN Primary Care Provider [phone] Stephanie Santos MD Primary Care Provider [phone] Encounter Details Date Type Department Care Team (Late st Contact Info) Description 08/24/2023 Lab Requisition [facility] Pathology & Laboratory Medicine - [address] [address] Outr Resulting Lab, Provider Social History Tobacco [...] C Antibody Negative Negative 08/26/2023 9:48 EDT [facility] Blood VENOUS BLOOD / Unknown 08/24/2023 7:46 EDT 08/24/2023 21:24 EDT Provider Outr Resulting Lab CHEMISTRY & BLOOD GAS ORDERABLES [facility] [address] [place] [address] documented in this encounter Visit Diagnoses Not on filedocumented in this encounter Additional Health Concerns Infection Onset Date Last Indicated Resolved Time MRSA Comment:IP note: risk factors - DM, obesity Pos sinus 06/30/17 M Chito 07/01/17 07/01/2017 07/01/2017 documented as of this encounter Care Teams Panel Flow Machine Operator Relationship Specialty Start Date End Date Jossie Patton APRN [address] [place] [phone] PCP - General 07/07/19 11/10/23 Stephanie Santos MD [address] [place] [address] PCP - General Family Medicine - Primary Care 11/11/23 documented as of this encounter
--- OUTSIDE RECORDS SUMMARY | 2024-02-17 18:38 | XMS_ITS | Encounter Summary ---
Author Organization [facility] Address [address] [place] [address] Care Team Providers Care Control Manager Name Role Phone PoojaJossie karimi RADHA Primary Care Provider [phone] Reason for Visit * Reason Comments Travel Consult Encounter Details Date Type Department Care Team (Late st Contact Info) Description 06/12/2022 14:00 EST Office Visit [facility] Infectious Disease - [address] [id number] [place], YUAN [address] [facility], Level 5 [place] [address] Travel advice encounter (Primary Dx); [...] this encounter Progress Notes * [place], CURTAIN FELLER BLINDSTITCH - 06/12/2022 1400 EST Travel Health Service [...] for the past 24 hrs: Temp Temp [facility] 06/12/22 1402 35.6 ??C (96.1 ??F) [...] Type 2 diabetes mellitus ([facility]) 8.7(07/07/2015 5:05 EST) No Annmarie Vigil [...] vaccination Need for prophylactic vaccination with combined lgaypzjihi-ieorirl-lbrvgmsse (DTP) vaccine Need for prophylactic vaccination against [...] documented as of this encounter Care Teams Control Manager Relationship Specialty Start Date End Date Jossie Patton, RADHA [address] [place] [address] PCP - General 07/07/19 11/10/23 documented as of this encounter
--- OUTSIDE RECORDS SUMMARY | 2024-02-17 18:38 | XMS_ITS | Encounter Summary ---
Author Organization [facility] Address [address] [place] [address] Care Team Providers Care Chocolatier Name Role Phone PoojaJossie karimi RADHA Primary Care Provider [phone] Reason for Visit * Reason Onset Date Comments Appointment Related 11/11/2019 fcp Encounter Details Date Type Department Care Team (Late st Contact Info) Description 11/11/2019 Telephone [facility] Hematology & Oncology - [address] [address] Fcp, Provider, Appointment Related (fcp) Social History [...] Type 2 diabetes mellitus ([facility]) 8.7(07/07/2015 5:05 EST) No Annmarie Vigil documented as of this encounter Visit Diagnoses Not on filedocumented in this encounter Additional Health Concerns Infection Onset Date Last Indicated Resolved Time MRSA Comment:IP note: risk factors - DM, obesity Pos sinus 06/30/17 M Chito 07/01/17 07/01/2017 07/01/2017 documented as of this encounter Care Teams Chocolatier Relationship Specialty Start Date End Date Jossie Patton APRN [address] [place] [phone] PCP - General 07/07/19 11/10/23 documented as of this encounter
--- OUTSIDE RECORDS SUMMARY | 2024-02-17 18:38 | XMS_ITS | Encounter Summary ---
Author Organization [facility] Address [address] [place] [address] Care Team Providers Care Director Business Name Role Phone Jossie Patton RADHA Primary Care Provider [phone] Reason for Visit * Reason Onset Date Comments Returning Call 08/27/2019 Encounter Details Date Type Department Care Team (Late st Contact Info) Description 08/27/[address] [address] Tio Cassidy MD [address] [place] [address] Returning Call Social History Tobacco [...] 7.0 Result Component Type 2 diabetes mellitus ([facility]) 8.7(07/07/2015 5:05 EST) No Annmarie Vigil documented as of this encounter Visit Diagnoses Not on filedocumented in this encounter Additional Health Concerns Infection Onset Date Last Indicated Resolved Time MRSA Comment:IP note: risk factors - DM, obesity Pos sinus 06/30/17 M Chito 07/01/17 07/01/2017 07/01/2017 documented as of this encounter Care Teams Director Business Relationship Specialty Start Date End Date Jossie Patton APRN [address] [place] [address] PCP - General 07/07/19 11/10/23 documented as of this encounter
--- OUTSIDE RECORDS SUMMARY | 2024-02-17 18:38 | XMS_ITS | Encounter Summary ---
Author Organization [facility] Address [address] [place] [address] Care Team Providers Care Wild Life Photographer Name Role Phone Jossie Patton RADHA Primary Care Provider Reason for Visit * Reason Comments Diabetes New CVE patient Encounter Details Date Type Department Care Team (Late st Contact Info) Description 09/08/2019 14:00 EDT Nurse Only [facility] Endocrinology [address] [place] [address] Bhumi Hayden, PRISCILA [address] [place] [address] Uncontrolled type 2 diabetes mellitus with hyperglycemia ([facility]) (Primary Dx) Social History Tobacco Use Types [...] she won't go back to Endocrinology in [place] as she was not treated well. She [...] Type 2 diabetes mellitus ([facility]) 8.7(07/07/2015 5:05 EST) No Annmarie Vigil documented as of this encounter Visit Diagnoses Diagnosis Uncontrolled type 2 diabetes mellitus with hyperglycemia ([facility])- Primary documented in this encounter Discontinued Medications [...] documented as of this encounter Care Teams Wild Life Photographer Relationship Specialty Start Date End Date Jossie Patton APRN 4 [facility] [phone] PCP - General 07/07/19 11/10/23 documented as of this encounter
--- OUTSIDE RECORDS SUMMARY | 2024-02-17 18:38 | XMS_ITS | Encounter Summary ---
Author Organization [facility] Address [address] [place] [address] Care Team Providers Care Block Stacker Name Role Phone Jossie Patton APRN Primary Care Provider Stephanie Santos MD Primary Care Provider [phone] Reason for Visit * Reason Onset Date Comments Appointment Related 06/12/2022 Encounter Details Date Type Department Care Team (Late st Contact Info) Description 06/12/2022 Telephone [facility] Infectious Disease - [address] [phone] Masood Macias MD [address] [place] [address], [address] [place] [address] Appointment Related Social History Tobacco [...] Component Type 2 diabetes mellitus ([facility]) 8.7(07/07/2015 5:05 EST) No Annmarie Vigil documented as of this encounter Visit Diagnoses Not on filedocumented in this encounter Additional Health Concerns Infection Onset Date Last Indicated Resolved Time MRSA Comment:IP note: risk factors - DM, obesity Pos sinus 06/30/17 M Chito 07/01/17 07/01/2017 07/01/2017 documented as of this encounter Care Teams Block Stacker Relationship Specialty Start Date End Date Jossie Patton APRN [address] [place] [phone] PCP - General 07/07/19 11/10/23 Stephanie Santos MD [address] [place] [address] PCP - General Family Medicine - Primary Care 11/11/23 documented as of this encounter
--- OUTSIDE RECORDS SUMMARY | 2024-02-17 18:38 | XMS_ITS | Encounter Summary ---
Author Organization [facility] Address [address] [place] [address] Care Team Providers Care Pharmacology Associate Name Role Phone Jossie Patton RADHA Primary [...] 2 diabetes mellitus ([facility]) 8.7(07/07/2015 5:05 EST) No Annmarie Vigil documented as of this encounter Visit Diagnoses Not on filedocumented in this encounter Additional Health Concerns Infection Onset Date Last Indicated Resolved Time MRSA Comment:IP note: risk factors - DM, obesity Pos sinus 06/30/17 M Chito 07/01/17 07/01/2017 07/01/2017 documented as of this encounter Care Teams Pharmacology Associate Relationship Specialty Start Date End Date Jossie Patton APRN [address] [place] [phone] PCP - General 07/07/19 11/10/23 documented as of this encounter
--- OUTSIDE RECORDS SUMMARY | 2024-02-17 18:38 | XMS_ITS | Encounter Summary ---
Author Organization [facility] Address [address] [place] [address] Care Team Providers Care Supervisor Metal Fabricating Name Role Phone Jossie Patton APRN Primary Care Provider [phone] Reason for Visit * Reason Onset Date Comments Appointment Related 02/11/2020 Encounter Details Date Type Department Care Team (Late st Contact Info) Description 02/11/2020 Telephone [facility] Sleep Program - [address] [place] [address] [place], [place] [phone] Jossie Razo NP 1 [facility] [address] [place] [address] Appointment Related Social History Tobacco [...] Telephone Encounter - Carine Tucker - 02/11/2020 7997 EDT Contacted pt to schedule NPV/Consult w/ES. Mailbox is full and can not accept any messages at this time. documented in this encounter Plan of Treatment Not on file documented as of this encounter Goals Goal Patient Goal Type Associated Problems Recent Progress Patient-Stated? Author HEMOGLOBIN A1C < 7.0 Result Component Type 2 diabetes mellitus ([facility]) 8.7(07/07/2015 5:05 EST) No Annmarie Vigil documented as of this encounter Visit Diagnoses Not on filedocumented in this encounter Additional Health Concerns Infection Onset Date Last Indicated Resolved Time MRSA Comment:IP note: risk factors - DM, obesity Pos sinus 06/30/17 M Chito 07/01/17 07/01/2017 07/01/2017 documented as of this encounter Care Teams Supervisor Metal Fabricating Relationship Specialty Start Date End Date Jossie Patton APRN [address] [place] [phone] PCP - General 07/07/19 11/10/23 documented as of this encounter
--- OUTSIDE RECORDS SUMMARY | 2024-02-17 18:38 | XMS_ITS | Encounter Summary ---
Author Organization [facility] Address [address] [place] [address] Care Team Providers Care Slurry Tank Tender Name Role Phone Jossie Patton APRN Primary Care Provider [phone] Stephanie Santos MD Primary Care Provider [phone] Encounter Details Date Type Department Care Team (Late st Contact Info) Description 05/28/2020 Lab Requisition [facility] Pathology & Laboratory Medicine - [address] [address] Outr Resulting Lab, Provider Social History Tobacco [...] Result Component Type 2 diabetes mellitus ([facility]) 8.7(07/07/2015 5:05 EST) No Annmarie Vigil documented as of this encounter Procedures Procedure Name Priority Date/Time Associated Diagnosis Comments VITAMIN D (25,OH) Routine 05/28/2020 9:40 EST documented in this encounter Results * VITAMIN D (25,OH) (05/28/2020 9:40 EST) 25OH Vitamin D Tot 30.3 30.0 - 100.0 ng/mL 05/30/2020 10:35 EST [facility] Comment: Vitamin D 25,OH Interpretive Ranges: Deficiency: ??<10.0 ng/mL Insufficiency: ??10.0 - 30.0 ng/mL Sufficiency: ??30.0 - 100.0 ng/mL Toxicity: ??>100.0 ng/mL Blood VENOUS BLOOD / Unknown 05/28/2020 9:40 EST 05/28/2020 21:45 EST Provider Outr Resulting Lab CHEMISTRY & BLOOD GAS ORDERABLES [facility] [address] [place] [address] documented in this encounter Visit Diagnoses Not on filedocumented in this encounter Additional Health Concerns Infection Onset Date Last Indicated Resolved Time MRSA Comment:IP note: risk factors - DM, obesity Pos sinus 06/30/17 M Chito 07/01/17 07/01/2017 07/01/2017 documented as of this encounter Care Teams Slurry Tank Tender Relationship Specialty Start Date End Date Jossie Patton APRN [address] [place] [address] PCP - General 07/07/19 11/10/23 Stephanie Santos MD [address] [place], [place] [phone] PCP - General Family Medicine - Primary Care 11/11/23 documented as of this encounter
--- OUTSIDE RECORDS SUMMARY | 2024-02-17 18:38 | XMS_ITS | Encounter Summary ---
Author Organization [facility] Address [address] [place] [address] Care Team Providers Care Hone Operator Name Role Phone Stephanie Santos MD Primary Care Provider [phone] Encounter Details Date Type Department Care Team (Late st Contact Info) Description 02/15/2024 Lab Requisition [facility] Pathology & Laboratory Medicine - [address] [address] Outr Resulting Lab, Provider Social History Tobacco [...] 7.0 Result Component Type 2 diabetes mellitus ([facility]) 8.7(07/07/2015 5:05 EST) No Annmarie Vigil documented as of this encounter Procedures Procedure Name Priority Date/Time Associated Diagnosis Comments HEPATITIS C AB W REFLEX TO HCV RNA BY PCR Routine 02/14/2024 14:30 EDT HEPATITIS B CORE ANTIBODY (TOTAL) Routine 02/14/2024 14:30 EDT documented in this encounter Results * HEPATITIS B CORE ANTIBODY (TOTAL) (02/14/2024 14:30 EDT) Hepatitis B Core Ab, Total Negative Negative 02/17/2024 11:34 EDT [facility] Blood VENOUS BLOOD / Unknown 02/14/2024 14:30 EDT 02/15/2024 21:33 EDT Provider Outr Resulting Lab CHEMISTRY & BLOOD GAS ORDERABLES Performing Organization Address City/[facility]/ZIP Co de Phone Number [facility] [address] [place] [address] * HEPATITIS C AB W REFLEX TO HCV RNA BY PCR (02/14/2024 14:30 EDT) Hep C Antibody Negative Negative 02/17/2024 11:15 EDT [facility] Blood VENOUS BLOOD / Unknown 02/14/2024 14:30 EDT 02/15/2024 21:33 EDT Provider Outr Resulting Lab CHEMISTRY & BLOOD GAS ORDERABLES Performing Organization Address [facility]/ZIP Co de Phone Number [facility] [address] [place] [address] documented in this encounter Visit Diagnoses Not on filedocumented in this encounter Additional Health Concerns Infection Onset Date Last Indicated Resolved Time MRSA Comment:IP note: risk factors - DM, obesity Pos sinus 06/30/17 M Chito 07/01/17 07/01/2017 07/01/2017 documented as of this encounter Care Teams Hone Operator Relationship Specialty Start Date End Date Stephanie Santos MD [address] [place] [address] PCP - General Family Medicine - Primary Care 11/11/23 documented as of this encounter
--- OUTSIDE RECORDS SUMMARY | 2024-02-17 18:38 | XMS_ITS | Encounter Summary ---
Author Organization [facility] Address [address] [place] [address] Care Team Providers Care Medical Planner Name Role Phone Stephanie Santos MD Primary Care Provider [phone] Encounter Details Date Type Department Care Team (Late st Contact Info) Description 02/15/[address] [facility] Pathology & Laboratory Medicine - [address] [address] Outr Resulting Lab, Provider Social History Tobacco [...] diabetes mellitus ([facility]) 8.7(07/07/2015 5:05 EST) Annmarie Lopez documented as of this encounter Procedures Procedure Name Priority Date/Time Associated Diagnosis Comments CHLAMYDIA/N. GONORRHOEAE AMPLIFIED NUCLEIC ACID Routine 02/14/2024 14:30 EDT documented in this encounter Results * CHLAMYDIA/N. GONORRHOEAE AMPLIFIED NUCLEIC ACID (02/14/2024 14:30 EDT) Neisseria gonorrhoeae Result Negative Negative 02/17/2024 12:25 EDT [facility] Chlamydia trachomatis Result Negative Negative 02/17/2024 12:25 EDT [facility] Urine 02/14/2024 14:3 0 EDT 02/16/2024 16:32 EDT Narrative [facility] - 02/17/2024 12:25 EDT A first catch urine specimen is acceptable for detection of Gonorrhea and Chlamydia, but might detect up to 10% fewer infections when compared with vaginal swab samples. Provider Outr Resulting Lab MICROBIOLOGY - GENERAL ORDERABLES [facility] [address] [place] [address] documented in this encounter Visit Diagnoses Not on filedocumented in this encounter Additional Health Concerns Infection Onset Date Last Indicated Resolved Time MRSA Comment:IP note: risk factors - DM, obesity Pos sinus 06/30/17 M Chito 07/01/17 07/01/2017 07/01/2017 documented as of this encounter Care Teams Medical Planner Relationship Specialty Start Date End Date Stephanie Santos MD [address] [place] [address] PCP - General Family Medicine - Primary Care 11/11/23 documented as of this encounter
--- OUTSIDE RECORDS SUMMARY | 2024-02-17 18:38 | XMS_ITS | Encounter Summary ---
Author Organization [facility] Address [address] [place] [address] Care Team Providers Care Kids Activities Coach Name Role Phone Jossie Patton RADHA Primary Care Provider [phone] Reason for Visit * Reason Onset Date Comments Diabetes 11/19/2019 ? status on her CGM Encounter Details Date Type Department Care Team (Late st Contact Info) Description 11/19/[address] [facility] Endocrinology [address] [place] [address] Bhumi Hayden, PRISCILA [address] [place] [address] Diabetes (? status on her CGM) Social [...] diabetes mellitus ([facility]) 8.7(07/07/2015 5:05 EST) No Annmarie Vigil documented as of this encounter Visit Diagnoses Not on filedocumented in this encounter Additional Health Concerns Infection Onset Date Last Indicated Resolved Time MRSA Comment:IP note: risk factors - DM, obesity Pos sinus 06/30/17 M Chito 07/01/17 07/01/2017 07/01/2017 documented as of this encounter Care Teams Kids Activities Coach Relationship Specialty Start Date End Date Jossie Patton APRN [address] [place] [phone] PCP - General 07/07/19 11/10/23 documented as of this encounter
--- OUTSIDE RECORDS SUMMARY | 2024-02-17 18:38 | XMS_ITS | Encounter Summary ---
Author Organization [facility] Address [address] [place] [address] Care Team Providers Care Wrap Knitting Machine Operator Name Role Phone PoojaJossie karimi Gabrielle GARCIA Primary Care Provider [phone] Reason for Visit * Reason Onset Date Comments Appointment Related 06/27/2020 Encounter Details Date Type Department Care Team (Late st Contact Info) Description 06/27/2020 Telephone [facility] Sleep Program - [place] [address] [place] [id number] Unknown, Provider, Appointment Related Social History Tobacco [...] 7.0 Result Component Type 2 diabetes mellitus ([facility]) 8.7(07/07/2015 5:05 EST) No Annmarie Vigil documented as of this encounter Visit Diagnoses Not on filedocumented in this encounter Additional Health Concerns Infection Onset Date Last Indicated Resolved Time MRSA Comment:IP note: risk factors - DM, obesity Pos sinus 06/30/17 M Chito 07/01/17 07/01/2017 07/01/2017 documented as of this encounter Care Teams Wrap Knitting Machine Operator Relationship Specialty Start Date End Date Jossie Patton APRN [address] [place] [address] PCP - General 07/07/19 11/10/23 documented as of this encounter
--- OUTSIDE RECORDS SUMMARY | 2024-02-17 18:38 | XMS_ITS | Encounter Summary ---
Author Organization [facility] Address [address] [place] [address] Care Team Providers Care Supervisor Residential Name Role Phone Stephanie Santos MD Primary Care Provider Reason for Visit * Reason Onset Date Comments Medications Refill 11/20/2023 Encounter Details Date Type Department Care Team (Late st Contact Info) Description 11/20/2023 Refill [facility] Infectious Disease [address] [place] [address] Mecca Giraldo, RN [address] [place], [place] [phone] Medications Refill Social History Tobacco Use Types [...] diabetes mellitus ([facility]) 8.7(07/07/2015 5:05 EST) Annmarie Lopez documented as of this encounter Visit Diagnoses Not on filedocumented in this encounter Additional Health Concerns Infection Onset Date Last Indicated Resolved Time MRSA Comment:IP note: risk factors - DM, obesity Pos sinus 06/30/17 M Chito 07/01/17 07/01/2017 07/01/2017 documented as of this encounter Care Teams Supervisor Residential Relationship Specialty Start Date End Date Stephanie Santos MD [address] [place] [address] PCP - General Family Medicine - Primary Care 11/11/23 documented as of this encounter
--- OUTSIDE RECORDS SUMMARY | 2024-02-17 18:38 | XMS_ITS | Encounter Summary ---
Author Organization [facility] Address [address] [place] [address] Care Team Providers Care Seal Delivery Vehicle Officer Name Role Phone Jossie Patton RADHA Primary Care Provider Reason for Visit * Reason Onset Date Comments Appointment Related 11/03/2019 Encounter Details Date Type Department Care Team (Late st Contact Info) Description 11/03/2019 Telephone [facility] Center Hematology & Oncology - [facility] [address] [place] [address] [place], MS [address] [place], [place] [address] Appointment Related Social History Tobacco Use Types [...] Component Type 2 diabetes mellitus ([facility]) 8.7(07/07/2015 5:05 EST) No Annmarie Vigil documented as of this encounter Visit Diagnoses Not on filedocumented in this encounter Additional Health Concerns Infection Onset Date Last Indicated Resolved Time MRSA Comment:IP note: risk factors - DM, obesity Pos sinus 06/30/17 M Chito 07/01/17 07/01/2017 07/01/2017 documented as of this encounter Care Teams Seal Delivery Vehicle Officer Relationship Specialty Start Date End Date Jossie Patton APRN [address] [place] [phone] PCP - General 07/07/19 11/10/23 documented as of this encounter
--- OUTSIDE RECORDS SUMMARY | 2024-02-17 18:38 | XMS_ITS | Encounter Summary ---
Author Organization [facility] Address [address] [place] [address] Care Team Providers Care Director Part Name Role Phone Jossie Patton APRN Primary Care Provider [phone] Stephanie Santos MD Primary Care Provider [phone] Encounter Details Date Type Department Care Team (Late st Contact Info) Description 07/30/2020 Lab Requisition [facility] Pathology & Laboratory Medicine - [address] [address] Outr Resulting Lab, Provider Social History Tobacco [...] 2 diabetes mellitus ([facility]) 8.7(07/07/2015 5:05 EST) No Annmarie Vigil documented as of this encounter Procedures Procedure Name Priority Date/Time Associated Diagnosis Comments VITAMIN D (25,OH) Routine 07/30/2020 8:45 EDT documented in this encounter Results * VITAMIN D (25,OH) (07/30/2020 8:45 EDT) 25OH Vitamin D Tot 39.8 30.0 - 100.0 ng/mL 08/01/2020 11:55 EDT [facility] Comment: Vitamin D 25,OH Interpretive Ranges: Deficiency: ??<10.0 ng/mL Insufficiency: ??10.0 - 30.0 ng/mL Sufficiency: ??30.0 - 100.0 ng/mL Toxicity: ??>100.0 ng/mL Blood VENOUS BLOOD / Unknown 07/30/2020 8:45 EDT 07/31/2020 16:22 EDT Provider Outr Resulting Lab CHEMISTRY & BLOOD GAS ORDERABLES [facility] [address] [place] [address] documented in this encounter Visit Diagnoses Not on filedocumented in this encounter Additional Health Concerns Infection Onset Date Last Indicated Resolved Time MRSA Comment:IP note: risk factors - DM, obesity Pos sinus 06/30/17 M Chito 07/01/17 07/01/2017 07/01/2017 documented as of this encounter Care Teams Director Part Relationship Specialty Start Date End Date Jossie Patton APRN [address] [place] [phone] PCP - General 07/07/19 11/10/23 Stephanie Santos MD [address] [place], [place] [phone] PCP - General Family Medicine - Primary Care 11/11/23 documented as of this encounter
--- OUTSIDE RECORDS SUMMARY | 2024-02-17 18:38 | XMS_ITS | Encounter Summary ---
Author Organization [facility] Address [address] [place] [address] Care Team Providers Care Armhole Baster Jumpbasting Name Role Phone Jossie Patton APRN Primary Care Provider [phone] Stephanie Santos MD Primary Care Provider [phone] Encounter Details Date Type Department Care Team (Late st Contact Info) Description 03/09/2023 Lab Requisition [facility] Pathology & Laboratory Medicine - [address] [address] Outr Resulting Lab, Provider Social History Tobacco [...] 2 diabetes mellitus ([facility]) 8.7(07/07/2015 5:05 EST) No Annmarie Vigil documented as of this encounter Procedures Procedure Name Priority Date/Time Associated Diagnosis Comments SYPHILIS SEROLOGY Routine 03/08/2023 15: 45 EST documented in this encounter Results * SYPHILIS SEROLOGY (03/08/2023 15:45 EST) Syphilis Serology Negative Negative 03/11/2023 12:12 EST [facility] Blood VENOUS BLOOD / Unknown 03/08/2023 15:45 EST 03/09/2023 21:19 EST Provider Outr Resulting Lab IMMUNOLOGY A ND SEROLOGY ORDERABLES Performing Organization Address City/State/[facility] Co de Phone Number [facility] [address] [place] [address] documented in this encounter Visit Diagnoses Not on filedocumented in this encounter Additional Health Concerns Infection Onset Date Last Indicated Resolved Time MRSA Comment:IP note: risk factors - DM, obesity Pos sinus 06/30/17 M Chito 07/01/17 07/01/2017 07/01/2017 documented as of this encounter Care Teams Armhole Baster Jumpbasting Relationship Specialty Start Date End Date Jossie Patton APRN [address] [place] [phone] PCP - General 07/07/19 11/10/23 Stephanie Santos MD [address] [place], [place] [phone] PCP - General Family Medicine - Primary Care 11/11/23 documented as of this encounter
--- OUTSIDE RECORDS SUMMARY | 2024-02-17 18:38 | XMS_ITS | Encounter Summary ---
Author Organization [facility] Address [address] [place] [address] Care Team Providers Care Production Manufacturing Worker Name Role Phone Jossie Patton APRN Primary Care Provider [phone] Stephanie Santos MD Primary Care Provider [phone] Encounter Details Date Type Department Care Team (Late st Contact Info) Description 08/24/[address] [facility] Pathology & Laboratory Medicine - [address] [address] Outr Resulting Lab, Provider Social History Tobacco [...] Type 2 diabetes mellitus ([facility]) 8.7(07/07/2015 5:05 EST) No Annmarie Vigil documented as of this encounter Procedures Procedure Name Priority Date/Time Associated Diagnosis Comments SYPHILIS SEROLOGY Routine 08/24/2023 7:46 EDT documented in this encounter Results * SYPHILIS SEROLOGY (08/24/2023 7:46 EDT) Syphilis Serology Negative Negative 08/26/2023 12:01 EDT [facility] Blood VENOUS BLOOD / Unknown 08/24/2023 7:46 EDT 08/24/2023 21:24 EDT Provider Outr Resulting Lab IMMUNOLOGY A ND SEROLOGY ORDERABLES [facility] [address] [place] [address] documented in this encounter Visit Diagnoses Not on filedocumented in this encounter Additional Health Concerns Infection Onset Date Last Indicated Resolved Time MRSA Comment:IP note: risk factors - DM, obesity Pos sinus 06/30/17 M Chito 07/01/17 07/01/2017 07/01/2017 documented as of this encounter Care Teams Production Manufacturing Worker Relationship Specialty Start Date End Date Jossie Patton APRN [address] [place] [address] PCP - General 07/07/19 11/10/23 Stephanie Santos MD [address] [place] [address] PCP - General Family Medicine - Primary Care 11/11/23 documented as of this encounter
--- OUTSIDE RECORDS SUMMARY | 2024-02-17 18:38 | XMS_ITS | Encounter Summary ---
Author Organization [facility] Address [address] [place] [address] Care Team Providers Care Exhibit Specialist Name Role Phone Jossie Patton APRN Primary Care Provider [phone] Stephanie Santos MD Primary Care Provider [phone] Encounter Details Date Type Department Care Team (Late st Contact Info) Description 08/24/2023 Lab Requisition [facility] Pathology & Laboratory Medicine - [address] [address] Outr Resulting Lab, Provider Social History Tobacco [...] Component Type 2 diabetes mellitus ([facility]) 8.7(07/07/2015 5:05 EST) No Annmarie Vigil documented as of this encounter Procedures Procedure Name Priority Date/Time Associated Diagnosis Comments HEPATITIS A ANTIBODY IGM Today 08/24/2023 7:46 EDT HEPATITIS A TOTAL ANTIBODY W REFLEX Routine 08/24/2023 7:46 EDT documented in this encounter Results * HEPATITIS A ANTIBODY IGM (08/24/2023 7:46 EDT) Hepatitis A Antibody, IgM Negative Negative 08/26/2023 11:32 EDT [facility] Blood VENOUS BLOOD / Unknown 08/24/2023 7:46 EDT 08/24/2023 21:24 EDT Narrative [facility] - 08/26/2023 11:32 EDT The results of this assay can be falsely lowered due to the consumption of Biotin. Provider Outr Resulting Lab CHEMISTRY & BLOOD GAS ORDERABLES [facility] [address] [place] [phone] * (ABNORMAL) HEPATITIS A TOTAL ANTIBODY W REFLEX (08/24/2023 7:46 EDT) Hepatitis A Antibody, Total Positive(A ) Negative 08/26/2023 10:32 EDT [facility] Blood VENOUS BLOOD / Unknown 08/24/2023 7:46 EDT 08/24/2023 21:24 EDT Narrative [facility] - 08/26/2023 10:32 EDT The result of this assay can be falsely elevated (Positive) due to the consumption of Biotin. Provider Outr Resulting Lab CHEMISTRY & BLOOD GAS ORDERABLES [facility] [address] [place] [address] documented in this encounter Visit Diagnoses Not on filedocumented in this encounter Additional Health Concerns Infection Onset Date Last Indicated Resolved Time MRSA Comment:IP note: risk factors - DM, obesity Pos sinus 06/30/17 M Chito 07/01/17 07/01/2017 07/01/2017 documented as of this encounter Care Teams Exhibit Specialist Relationship Specialty Start Date End Date Jossie Patton APRN [address] [place] [address] PCP - General 07/07/19 11/10/23 Stephanie Santos MD [address] [place] [address] PCP - General Family Medicine - Primary Care 11/11/23 documented as of this encounter
--- OUTSIDE RECORDS SUMMARY | 2024-02-17 18:38 | XMS_ITS | Encounter Summary ---
Author Organization [facility] Address [address] [place] [address] Care Team Providers Care Bsw Name Role Phone Jossie Patton APRN Primary Care Provider [phone] Stephanie Santos MD Primary Care Provider [phone] Encounter Details Date Type Department Care Team (Late st Contact Info) Description 05/28/2020 Lab Requisition [facility] Pathology & Laboratory Medicine - [address] [address] Outr Resulting Lab, Provider Social History Tobacco [...] Type 2 diabetes mellitus ([facility]) 8.7(07/07/2015 5:05 EST) No Annmarie Vigil documented as of this encounter Procedures Procedure Name Priority Date/Time Associated Diagnosis Comments VITAMIN B12 Routine 05/28/2020 9:40 EST documented in this encounter Results * VITAMIN B12 (05/28/2020 9:40 EST) Vitamin B12 493 211 - 911 pg/mL 05/30/2020 9:39 EST [facility] Blood VENOUS BLOOD / Unknown 05/28/2020 9:40 EST 05/28/2020 21:45 EST Provider Outr Resulting Lab CHEMISTRY & BLOOD GAS ORDERABLES [facility] [address] [place] [address] documented in this encounter Visit Diagnoses Not on filedocumented in this encounter Additional Health Concerns Infection Onset Date Last Indicated Resolved Time MRSA Comment:IP note: risk factors - DM, obesity Pos sinus 06/30/17 M Chito 07/01/17 07/01/2017 07/01/2017 documented as of this encounter Care Teams Bsw Relationship Specialty Start Date End Date Jossie Patton APRN [address] [place] [phone] PCP - General 07/07/19 11/10/23 Stephanie Santos MD [address] [place], [place] [phone] PCP - General Family Medicine - Primary Care 11/11/23 documented as of this encounter
--- OUTSIDE RECORDS SUMMARY | 2024-02-17 18:39 | XMS_ITS | Encounter Summary ---
Author Organization [facility] Address [address] [place] [address] Care Team Providers Care Dance Entertainer Name Role Phone Annette Sidhu APRN Primary Care Provider [phone] Jossie Patton APRN Primary Care Provider [phone] Stephanie Santos MD Primary Care Provider [phone] Reason for Visit * Reason Comments Other Encounter Details Date Type Department Care Team (Late st Contact Info) Description 02/20/2015 Refill [facility] OBGYN Services - [address] [phone] Khalida Quiñones MD Other Social History Tobacco [...] documented as of this encounter Care Teams Dance Entertainer Relationship Specialty Start Date End Date Annette Sidhu APRN [address] [place] [phone] PCP - General 03/19/13 07/06/19 Jossie Patton APRN [address] [place] [phone] PCP - General 07/07/19 11/10/23 Stephanie Santos MD [address] [place] [address] PCP - General Family Medicine - Primary Care 11/11/23 documented as of this encounter
--- OUTSIDE RECORDS SUMMARY | 2024-02-17 18:39 | XMS_ITS | Encounter Summary ---
Author Organization [facility] Address [address] [place] [address] Care Team Providers Care Part Time Flexible Clerk Name Role Phone Jossie Patton RADHA Primary Care Provider [phone] Reason for Visit * Reason Onset Date Comments Medication Management 08/27/2019 Encounter Details Date Type Department Care Team (Late st Contact Info) Description 08/27/2019 Telephone [facility] - [address] [address] Tio Cassidy MD [address] [place] [address] Medication Management Social History Tobacco [...] Telephone Encounter - Aziza Billings - 08/27/2019 0991 EDT Heena Luis called from [facility], patient's primary care office, to ask if [...] Type 2 diabetes mellitus ([facility]) 8.7(07/07/2015 5:05 EST) No Annmarie Vigil documented as of this encounter Visit Diagnoses Not on filedocumented in this encounter Additional Health Concerns Infection Onset Date Last Indicated Resolved Time MRSA Comment:IP note: risk factors - DM, obesity Pos sinus 06/30/17 M Chito 07/01/17 07/01/2017 07/01/2017 documented as of this encounter Care Teams Part Time Flexible Clerk Relationship Specialty Start Date End Date Jossie Patton APRN [address] [place] [address] PCP - General 07/07/19 11/10/23 documented as of this encounter
--- OUTSIDE RECORDS SUMMARY | 2024-02-17 18:39 | XMS_ITS | Encounter Summary ---
Author Organization [facility] Address [address] [place] [address] Care Team Providers Care Strap Buckler Name Role Phone Annette Sidhu APRN Primary Care Provider [phone] Reason for Visit * Reason Onset Date Comments Appointment Related 07/02/2019 fcp Encounter Details Date Type Department Care Team (Late st Contact Info) Description 07/02/2019 Telephone [facility] Hematology & Oncology - [address] [address] Fcp, Provider, Appointment Related (fcp) Social History [...] Component Type 2 diabetes mellitus ([facility]) 8.7(07/07/2015 5:05 EST) No Annmarie Vigil documented as of this encounter Visit Diagnoses Not on filedocumented in this encounter Additional Health Concerns Infection Onset Date Last Indicated Resolved Time MRSA Comment:IP note: risk factors - DM, obesity Pos sinus 06/30/17 M Chito 07/01/17 07/01/2017 07/01/2017 documented as of this encounter Care Teams Strap Buckler Relationship Specialty Start Date End Date Annette Sidhu, PLASTIC CARD GRADER [employer]DROOM [address] [place] [phone] PCP - General 03/19/13 07/06/19 documented as of this encounter
--- OUTSIDE RECORDS SUMMARY | 2024-02-17 18:39 | XMS_ITS | Encounter Summary ---
Author Organization [facility] Address [address] [place] [address] Care Team Providers Care Environmental Test Technician Name Role Phone Annette Sidhu APRN Primary Care Provider [phone] Encounter Details Date Type Department Care Team (Late st Contact Info) Description 02/09/2019 Results Only [facility] [phone] Annette Sidhu APRN [address] [phone] Social History Tobacco Use Types [...] 2 diabetes mellitus ([facility]) 8.7(07/07/2015 5:05 EST) No Annmarie Vigil documented as of this encounter Procedures Procedure Name Priority Date/Time Associated Diagnosis Comments LITHIUM Routine 02/09/2019 13:38 EDT documented in this encounter Results * (ABNORMAL) LITHIUM (02/09/2019 13:38 EDT) [place] 0.4(L) 0.6 - 1.2 mEq/L 02/09/2019 20:50 EDT [facility] BLOOD SPECIMEN / Unknown 02/09/2019 13:38 EDT 02/09/2019 20:38 EDT Annette Sidhu APRN CHEMISTRY & BLOOD GA S ORDERABLES [facility] [address] [place] [address] documented in this encounter Visit Diagnoses Not on filedocumented in this encounter Additional Health Concerns Infection Onset Date Last Indicated Resolved Time MRSA Comment:IP note: risk factors - DM, obesity Pos sinus 06/30/17 M Chito 07/01/17 07/01/2017 07/01/2017 documented as of this encounter Care Teams Environmental Test Technician Relationship Specialty Start Date End Date Annette Sidhu APRN [address] [place] [phone] PCP - General 03/19/13 07/06/19 documented as of this encounter
--- OUTSIDE RECORDS SUMMARY | 2024-02-17 18:39 | XMS_ITS | Encounter Summary ---
Author Organization [facility] Address [address] [place] [address] Care Team Providers Care Roller Name Role Phone Jossie Patton APRN Primary Care Provider [phone] Reason for Visit * Reason Comments Diabetes * Referral (Routine) - Closed Specialty Diagnoses / Procedures Referred By [facility] Referred To Contact Endocrinology Diagnoses Type 2 diabetes mellitus without complications ([facility]) Jossie Patton APRN [address] [place] [address] [facility] Endocrinology [address] [place] [address] Referral ID Status Reason Start Date Expiration Date Visits Re quested Visits Authorized [id number] Closed 1 1 Encounter Details Date Type Department Care Team (Latest Contact Info) Description 07/07/2019 10:20 EDT Office Visit [facility] Endocrinology - [address] [address] Tio Cassidy MD [address] [place] [address] Uncontrolled type 2 diabetes mellitus with hyperglycemia ([facility]) (Primary Dx); Hypercalcemia; History of [...] 2013 she has been referred by her LIFT TRUCK MECHANIC for emotional dysregulation and self-harmimpulses in the context of a recent break-up with a boyfriend. Her admission in April 2013 was due to a serious suicide attempt with insulin overdose. Reports: Fasting 300s! Still actively suicidal. She told me 2 months ago that she was thinking about jumping off a bridge,she was thinking about committing suicide by retirement actuary-that meant doing something bad and confronting police officers Blood sugars are always very high Reports frequent yeast infections and yet she was prescribed Jardiance Patient who needs insulin to control diabetes but has a history of 2 suicide attempts with insulin.Patient sees Flip at [facility] in [place] but I need a second opinion. she [...] 05/2019 (no issues), Has seen a certified flex endoscope reprocessor in the last year? NO Important past [...] Uncontrolled type 2 diabetes mellitus with hyperglycemia ([facility]) LIPID PROFILE (INCLUDES CHOLESTEROL, TRIGLYCERIDES, HDL, [...] diabetes, 60 minutes were spent in a [id number] encounter, more than 50% time was counseling andextra time spent coordinating care. documented in this encounter Plan of Treatment Not on file documented as of this encounter Goals Goal Patient Goal Type Associated Problems Recent Progress Patient-Stated? Author HEMOGLOBIN A1C < 7.0 Result Component Type 2 diabetes mellitus ([facility]) 8.7(07/07/2015 5:05 EST) No Annmarie Vigil documented as of this encounter Results * ALBUMIN, URINE (07/07/2019 11:39 EDT) Albumin, Urine <0.6 See Note mg/dL 2019 15:16 EDT [facility] Comment: NOTE: Reference range not established Creatinine, Urine 30.4 See Note mg/dL 07/07/2019 15:16 EDT [facility] Comment: NOTE: Reference range not established Lab Urine Albumin to Creatinine Ratio <20 <30 ug/mg Creatinine 07/07/2019 15:16 EDT [facility] Comment: Urine Albumin/Creatinine Ratio: Normal: <30 ug/mg Creatinine Moderately increased albuminuria: 30-30 ug/mg Creatinine [place]ley increased albuminuria: >300 ug/mg Creatinine Urine URINE SPECIMEN OBTAINED BY CLEAN CATCH PROCEDURE / Unknown Urine Collect / Unknown 07/07/2019 11:39 EDT 07/07/2019 11:40 EDT Tio Ray MD CHEMISTRY & BLOOD GAS ORDERABLES [facility] [address] [place] [address] * PHOSPHORUS (07/07/2019 11:37 EDT) Pathologist [facility] Phosphorus 4.1 2.5 - 4.5 mg/dL 07/07/2019 14:59 EDT [facility] Blood VENOUS BLOOD / Unknown Venipuncture / Unknown 07/07/2019 11:37 EDT 07/07/2019 11:40 EDT Tio Ray MD CHEMISTRY & BLOOD GAS ORDERABLES Performing Organization Address City/State/[facility] Co de Phone Number [facility] [address] [place] [address] * (ABNORMAL) VITAMIN D (25,OH) (07/07/2019 11:37 EDT) Pathologist [facility] 25OH Vitamin D Tot 29.0(L) 30.0 - 100.0 ng/mL 07/08/2019 10:49 EDT [facility] Comment: Vitamin D 25,OH Interpretive Ranges: Deficiency: ??<10.0 ng/mL Insufficiency: ??10.0 - 30.0 ng/mL Sufficiency: ??30.0 - 100.0 ng/mL Toxicity: ??>100.0 ng/mL Blood VENOUS BLOOD / Unknown Venipuncture / Unknown 07/07/2019 11:37 EDT 07/07/2019 11:40 EDT Tio Ray MD CHEMISTRY & BLOOD GAS ORDERABLES Performing Organization Address City/[facility]/ZIP Co de Phone Number [facility] [address] [place] [address] * PTH INTACT (07/07/2019 11:37 EDT) Pathologist [facility] Intact PTH 27 19 - 88 pg/mL 07/08/2019 11:42 EDT [facility] Blood VENOUS BLOOD / Unknown Venipuncture / Unknown 07/07/2019 11:37 EDT 07/07/2019 11:40 EDT Tio Ray MD CHEMISTRY & BLOOD GAS ORDERABLES [facility] [address] [place] [address] * (ABNORMAL) FRUCTOSAMINE (07/07/2019 11:37 EDT) Fructosamine, S 425(H) 200 - 285 mcmol/L 07/08/2019 13:32 EDT [facility] Comment: Test Performed by: [facility] - [address] [address] Bird Cage Assembler: Lloyd Barker M.D. Ph.D.; CLIA# [id number] Blood VENOUS BLOOD / Unknown Venipuncture / Unknown 07/07/2019 11:37 EDT 07/07/2019 11:40 EDT Tio Ray MD CHEMISTRY & BLOOD GAS ORDERABLES Performing Organization Address City/[facility]/ZIP Co de Phone Number [facility] [address] [place] [address] * (ABNORMAL) COMPREHENSIVE METABOLIC PANEL (CMP) (07/07/2019 11:37 EDT) Sodium 135(L) 136 - 145 mEq/L 07/07/2019 14:59 EDT [facility] Potassium 4.2 3.5 - 5.0 mEq/L 07/07/2019 14:59 EDT [facility] Chloride 101 96 - 110 mEq/L 07/07/2019 14:59 EDT [facility] CO2 Total 19(L) 22 - 32 mEq/L 07/07/2019 14:59 EDT [facility] Glucose 281(H) 70 - 100 mg/dL 07/07/2019 14:59 EDT [facility] BUN 8(L) 10 - 26 mg/dL 07/07/2019 14:59 EDT [facility] Creatinine 0.69 0.52 - 1.04 mg/dL 07/07/2019 14:59 EDT [facility] eGFR 108 >60 mL/min/1.7 3m2 07/07/2019 14:59 EDT [facility] Comment:eGFR calculated sondra banks CKD-EPI equation for non- Americans. Multiply eGFR by 1.16 for patients. Total Protein 7.9 6.3 - 8.2 g/dL 07/07/2019 14:59 EDT [facility] Albumin 5.0(H) 3.4 - 4.9 g/dL 07/07/2019 14:59 T [facility] Alkaline Phosphatase 115 38 - 126 U/L 07/07/2019 14:59 EDT [facility] AST 89(H) 15 - 46 U/L 07/07/2019 14:59 [facility] ALT 68(H) <35 U/L 07/07/2019 14:59 [facility] Bilirubin, Total 0.9 <1.4 mg/dL 07/07/19 20 14:59 [facility] Calcium 10.4 8.5 - 10.5 mg/dL 07/07/2019 14:59 T [facility] Calculated Calcium 9.6 8.5 - 10.5 mg/dL 07/07/2019 14:59 [facility] Blood VENOUS BLOOD / Unknown Venipuncture / Unknown 07/07/2019 11:37 EDT 07/07/2019 11:40 EDT Narrative [facility] - 07/07/2019 14:59 EDT 1 Tio Ray MD CHEMISTRY & BLOOD GAS ORDERABLES Performing Organization Address City/State/[facility] Co de Phone Number [facility] [address] [place] [address] * LIPID PROFILE (INCLUDES CHOLESTEROL, TRIGLYCERIDES, HDL, LDL) (07/07/2019 11:37 EDT) Cholesterol 301 See Note mg/dL 07/07/2019 16:22 EDT [facility] Comment: Acceptable: ?<200 mg/dL Borderline High: 200-239 mg/dL High: ?> or = 240 mg/dL HDL 56 See Note mg/dL 07/07/2019 16:22 [facility] Comment: Low: ? <40 mg/dL Normal: ??40-60 mg/dL High: ?>60 mg/dL LDL, Calculated 0 16:22 [facility] Comment: Optimal: ? <100 mg/dL Near Optimal: ?100-129 mg/dL Borderline High: 130-159 mg/dL High: ?160-189 mg/dL Very High: ? > or = 190 mg/dL Calculated LDL invalid, triglycerides >400 mg/dL Direct LDL measurement added by reflex. Triglyceride 742 See Note mg/dL 07/07/2019 16:22 [facility] Comment: Normal: ? <150 mg/dL Borderline High: ??150 - 199 mg/dL High: ? 200 - 499 mg/dL Very High: ?> or = 500 mg/dL Chol/HDL Ratio 5.4 See Note 07/07/2019 16:22 [facility] Comment: No reference range has been established for CHOL/HDL ratio. Non HDL Cholesterol 245 See Note mg/dL 07/07/2019 16:22 [facility] Comment: Desirable: ?<130 mg/dL Borderline High: ??130-159 mg/dL High: ? 160-189 mg/dL Very High: ?> or = 190 mg/dL Blood VENOUS BLOOD / Unknown Venipuncture / Unknown 07/07/2019 11:37 EDT 07/07/2019 11:40 EDT Narrative [facility] - 07/07/2019 16:22 EDT 1 Tio Ray MD CHEMISTRY & BLOOD GAS ORDERABLES [facility] [address] [place] [address] documented in this encounter Visit Diagnoses Diagnosis Uncontrolled type 2 diabetes mellitus with hyperglycemia ([facility] Primary Hypercalcemia History of suicidal ideation Personal [...] documented as of this encounter Care Teams Roller Relationship Specialty Start Date End Date Jossie Patton APRN [address] [place] [phone] PCP - General 07/07/19 11/10/23 documented as of this encounter
--- OUTSIDE RECORDS SUMMARY | 2024-02-17 18:39 | XMS_ITS | Encounter Summary ---
Author Organization [facility] Address [address] [place] [address] Care Team Providers Care Time Broker Name Role Phone Annette Sidhu APRN Primary Care Provider Encounter Details Date Type Department Care Team (Late st Contact Info) Description 12/20/2015 Results Only [facility]- PRISM [phone] Annette Sidhu APRN [address] [address] Social History Tobacco Use Types [...] Component Type 2 diabetes mellitus ([facility]) 8.7(07/07/2015 5:05 EST) No Annmarie Vigil documented as of this encounter Procedures Procedure Name Priority Date/Time Associated Diagnosis Comments POTASSIUM Routine 12/20/2015 19:58 EDT documented in this encounter Results * POTASSIUM (12/20/2015 19:58 EDT) Potassium 4.5 3.5 - 5.0 mEq/L 12/20/2015 21:14 EDT [facility] BLOOD SPECIMEN / Unknown 12/20/2015 19:58 EDT 12/20/2015 19:58 EDT Annette Sidhu APRN CHEMISTRY & BLOOD GA S ORDERABLES [facility] [address] [place] [address] documented in this encounter Visit Diagnoses Not on filedocumented in this encounter Care Teams Time Broker Relationship Specialty Start Date End Date Annette Sidhu APRN [address] [place] [phone] PCP - General 03/19/13 07/06/19 documented as of this encounter
--- OUTSIDE RECORDS SUMMARY | 2024-02-17 18:39 | XMS_ITS | Encounter Summary ---
Author Organization [facility] Address [address] [place] [address] Care Team Providers Care Administration Physician Name Role Phone Jossie Patton RADHA Primary Care Provider [phone] Reason for Visit * Reason Onset Date Comments Follow-up 07/09/2019 Encounter Details Date Type Department Care Team (Late st Contact Info) Description 07/09/2019 Telephone [facility] - [address] [address] Tio Cassidy MD [address] [place] [address] Follow-up Social History Tobacco Use [...] the Psychiatry evaluation per office note from [facility] on 07/07/19? Please call. documented in this encounter Plan of Treatment Not on file documented as of this encounter Goals Goal Patient Goal Type Associated Problems Recent Progress Patient-Stated? Author HEMOGLOBIN A1C < 7.0 Result Component Type 2 diabetes mellitus ([facility]) 8.7(07/07/2015 5:05 EST) No Annmarie Vigil documented as of this encounter Visit Diagnoses Not on filedocumented in this encounter Additional Health Concerns Infection Onset Date Last Indicated Resolved Time MRSA Comment:IP note: risk factors - DM, obesity Pos sinus 06/30/17 M Chito 07/01/17 07/01/2017 07/01/2017 documented as of this encounter Care Teams Administration Physician Relationship Specialty Start Date End Date Jossie Patton APRN [address] [place] [phone] PCP - General 07/07/19 11/10/23 documented as of this encounter
--- OUTSIDE RECORDS SUMMARY | 2024-02-17 18:39 | XMS_ITS | Encounter Summary ---
Author Organization [facility] Address [address] [place] [address] Care Team Providers Care Plater Apprentice Name Role Phone Annette Sidhu APRN Primary Care Provider Encounter Details Date Type Department Care Team (Late st Contact Info) Description 05/28/2018 Results Only [facility]- PRISM [phone] Annette Sidhu APRN [address] [address] Social History Tobacco Use Types [...] 7.0 Result Component Type 2 diabetes mellitus ([facility]) 8.7(07/07/2015 5:05 EST) No Annmarie Vigil documented as of this encounter Visit Diagnoses Not on filedocumented in this encounter Additional Health Concerns Infection Onset Date Last Indicated Resolved Time MRSA Comment:IP note: risk factors - DM, obesity Pos sinus 06/30/17 M Chito 07/01/17 07/01/2017 07/01/2017 documented as of this encounter Care Teams Plater Apprentice Relationship Specialty Start Date End Date Annette Sidhu, BRACER [address] [place] [phone] PCP - General 03/19/13 07/06/19 documented as of this encounter
--- OUTSIDE RECORDS SUMMARY | 2024-02-17 18:39 | XMS_ITS | Encounter Summary ---
Author Organization [facility] Address [address] [place] [address] Care Team Providers Care News Video Editor Name Role Phone Annette Sidhu APRN Primary Care Provider + [phone] Jossie Patton APRN Primary Care Provider + [phone] Stephanie Santos MD Primary Care Provider [phone] Encounter Details Date Type Department Care Team (Late st Contact Info) Description 06/23/2019 Lab Requisition [facility] Pathology & Laboratory Medicine - [address] [address] Unknown, Provider, Social History Tobacco Use Types [...] C Antibody Negative Negative 06/24/2019 11:48 EST [facility] Blood VENOUS BLOOD / Unknown 06/22/2019 14:15 EST 06/23/2019 16:45 EST Provider Unknown CHEMISTRY & BLOOD GA S ORDERABLES [facility] [address] [place] [address] documented in this encounter Visit Diagnoses Not on filedocumented in this encounter Additional Health Concerns Infection Onset Date Last Indicated Resolved Time MRSA Comment:IP note: risk factors - DM, obesity Pos sinus 06/30/17 M Chito 07/01/17 07/01/2017 07/01/2017 documented as of this encounter Care Teams News Video Editor Relationship Specialty Start Date End Date Annette Sidhu APRN [address] [place] [phone] PCP - General 03/19/13 07/06/19 Jossie Patton APRN [address] [place] [phone] PCP - General 07/07/19 11/10/23 Stephanie Santos MD [address] [place] [address] PCP - General Family Medicine - Primary Care 11/11/23 documented as of this encounter
--- OUTSIDE RECORDS SUMMARY | 2024-02-17 18:39 | XMS_ITS | Encounter Summary ---
Author Organization [facility] Address [address] [place] [address] Care Team Providers Care Freight Brakeman Name Role Phone Nauhm Annette Kay APRN Primary Care Provider Reason for Referral * Radiology Services (3 - 10 Business Days) - Specialty Report Received Specialty Diagnoses / Procedures [facility] Referred To Contact Otolaryngology Diagnoses Recurrent sinusitis Procedures CT SINUS COMPLETE WO CONTRAST CHG CT SCAN,MAXILLOFACIAL AREA,W/O CONTRAST Peter Barber MD [address] [place] [address] Peter Barber MD [address] [place] [address] Referral ID Status Reason Start Date Expiration Date V isits Requested Visits Authorized [id number] Specialty Report Received 07/30/2017 1 1 Reason for Visit * Reason Comments Nasal Polyps * Consult (Routine) - Closed Specialty Diagnoses / Procedures Referred By [facility] Referred To Contact Otolaryngology Diagnoses Nasal polyp, unspecified Pawan Chapa I, YUAN [address] [place] [address] [address] Ent [address] [place] [address] Referral ID Status Reason Start Date Expiration Date Visits Re quested Visits Authorized [id number] Closed 1 1 Encounter Details Date Type Department Care Team (Latest Contact Info) Description 06/28/2017 8:30 EST Office Visit [facility] ENT- [address] [address] Peter Barber MD [address] [place] [address] Nasal vestibulitis (Primary Dx); Recurrent [...] request that Annette Maldonado requests this at [facility]. Addendum: 07/30/2017. Reason nasal culture results. Findings; positive for MRSA. Sensitivity to tetracycline and vancomycin. Resistant to all other antibiotics including Bactrim DS. Patient will be contacted for follow-up evaluation.Peter Barber MD documented in this encounter Miscellaneous Notes * Addendum Note - Sandie Delgado RN - 07/30/2017 1047 EDTAddended by: SANDIE DELGADO on: 07/30/2017 10:47 Modules accepted: Orders [...] 2 diabetes mellitus ([facility]) 8.7(07/07/2015 5:05 EST) No Annmarie Vigil documented as of this encounter Procedures Procedure Name Priority Date/Time Associated Diagnosis Comments BACTERIAL CULTURE/SMEAR Routine 06/28/2017 9:01 EST Nasal vestibulitis documented in this encounter Results * BACTERIAL CULTURE/SMEAR, OTHER (06/28/2017 9:01 EST) Gram Smear Result Few Polys 06/28/2017 12:19 [facility] Gram Smear Result No bacteria seen 06/28/2017 12:19 [facility] Result Few METHICILLIN RESISTANT STAPHYLOCOCCUS AUREUS 06/30/2017 10:02 [facility] Result Few Usual je-pharyngeal joe 06/30/2017 10:02 [facility] Specimen of unknown material (specimen) [...] Peter Barber MD MICROBIOLOGY - GENERAL ORDERABLES [facility] [address] [place] [address] documented in this encounter Visit Diagnoses Diagnosis [...] documented as of this encounter Care Teams Freight Brakeman Relationship Specialty Start Date End Date Annette Sidhu APRN [address] [place] [phone] PCP - General 03/19/13 07/06/19 documented as of this encounter
--- OUTSIDE RECORDS SUMMARY | 2024-02-17 18:39 | XMS_ITS | Encounter Summary ---
Author Organization [facility] Address [address] [place] [address] Care Team Providers Care Ballet Soloist Name Role Phone Annette Sidhu APRN Primary Care Provider [phone] Encounter Details Date Type Department Care Team ([facility] st Contact Info) Description 07/07/2015 Orders Only Non [facility] Ancillary Services Annette Sidhu APRN [address] [phone] Lethargy (Primary Dx); Diabetes mellitus without complication ([facility]) Social History Tobacco Use Types Packs/Day Years [...] Result Component Type 2 diabetes mellitus ([facility]) 8.7(07/07/2015 5:05 EST) Annmarie Lopez documented as of this encounter Visit Diagnoses Diagnosis Lethargy- Primary Other malaise and fatigue Diabetes mellitus without complication ([facility]) Type II or unspecified type diabetes mellitus without mention of complication, not stated as uncontrolled documented in this encounter Care Teams Ballet Soloist Relationship Specialty Start Date End Date Annette Sidhu APRN [address] [place] [phone] PCP - General 03/19/13 07/06/19 documented as of this encounter
--- OUTSIDE RECORDS SUMMARY | 2024-02-17 18:39 | XMS_ITS | Encounter Summary ---
Author Organization [facility] Address [address] [place] [address] Care Team Providers Care Cobol Application Developer Name Role Phone Annette Sidhu APRN Primary Care Provider Encounter Details Date Type Department Care Team (Late st Contact Info) Description 01/20/2017 Results Only Imaging [facility]- PRISM [phone] Annette Sidhu APRN [address] [address] Social History Tobacco Use [...] Component Type 2 diabetes mellitus ([facility]) 8.7(07/07/2015 5:05 EST) No Annmarie Vigil documented as of this encounter Visit Diagnoses Not on filedocumented in this encounter Care Teams Cobol Application Developer Relationship Specialty Start Date End Date Annette Sidhu, DOUGH MIXING MACHINE OPERATOR [address] [place] [phone] PCP - General 03/19/13 07/06/19 documented as of this encounter
--- OUTSIDE RECORDS SUMMARY | 2024-02-17 18:39 | XMS_ITS | Encounter Summary ---
Author Organization [facility] Address [address] [place] [address] Care Team Providers Care Hub Associate Name Role Phone Annette Sidhu APRN Primary Care Provider Reason for Visit * Reason Onset Date Comments Other 10/21/2018 Encounter Details Date Type Department Care Team (Late st Contact Info) Description 10/21/[address] [facility] Bariatric Surgery [facility] [address] [place], [place] [address] Bryson Medley, GERMANC [address] [facility], [facility], [address] [place] [address] Other Social History Tobacco Use [...] Type 2 diabetes mellitus ([facility]) 8.7(07/07/2015 5:05 EST) No Annmarie Vigil documented as of this encounter Visit Diagnoses Not on filedocumented in this encounter Additional Health Concerns Infection Onset Date Last Indicated Resolved Time MRSA Comment:IP note: risk factors - DM, obesity Pos sinus 06/30/17 M Chito 07/01/17 07/01/2017 07/01/2017 documented as of this encounter Care Teams Hub Associate Relationship Specialty Start Date End Date Annette Sidhu APRN [address] [place] [phone] PCP - General 03/19/13 07/06/19 documented as of this encounter
--- OUTSIDE RECORDS SUMMARY | 2024-02-17 18:39 | XMS_ITS | Encounter Summary ---
Author Organization [facility] Address [address] [place] [address] Care Team Providers Care Production Line Worker Name Role Phone Annette Sidhu APRN Primary Care Provider Encounter Details Date Type Department Care Team (Late st Contact Info) Description 05/09/[address] [facility]- PRISM [phone] Annette Sidhu APRN [address] [phone] Social History Tobacco Use Types [...] diabetes mellitus ([facility]) 8.7(07/07/2015 5:05 EST) No Annmarie Vigil documented as of this encounter Procedures Procedure Name Priority Date/Time Associated Diagnosis Comments COMPLETE BLOOD COUNT AND DIFFERENTIAL Routine 05/09/2018 12:06 EST documented in this encounter Results * (ABNORMAL) COMPLETE BLOOD COUNT AND DIFFERENTIAL (05/09/2018 12:06 EST) WBC 11.96 4.0 - 12.4 K/cmm 05/09/2018 20:09 [facility] RBC 4.43 3.86 - 5.04 M/cmm 05/09/2018 20:09 [facility] Hemoglobin 13.5 11.6 - 15.2 gm/dl 05/09/2018 20:09 [facility] HCT 39.0 34.9 - 44.4 % 05/09/2018 20:09 [facility] MCV 88 81 - 98 fl 05/09/2018 20:09 [facility] MCH 30.5 26.7 - 33.3 pg 05/09/2018 20:09 [facility] MCHC 34.6 32.1 - 35.9 gm/dl 05/09/2018 20:09 [facility] RDW-CV 12.0 <14.7 % 05/09/2018 20:09 [facility] RDW-SD 38.8 <50.4 fl 05/09/2018 20:09 [facility] PLT 361 141 - 377 K/cmm 05/09/2018 20:09 [facility] MPV 9.6 9.5 - 12.7 fl 05/09/2018 20:09 [facility] % Neutrophils 61.5 % 05/09/2018 20:09 [facility] % Lymphocytes 30.4 % 05/09/2018 20:09 [facility] % Monocytes 6.6 % 05/09/2018 20:09 [facility] % Eosinophils 0.6 % 05/09/2018 20:09 [facility] % Basophils 0.5 % 05/09/2018 20:09 [facility] % Immature Grans 0.4 % 05/09/2018 20:09 [facility] ABS Neutrophils 7.35 2.20 - 8.85 K/cmm 05/09/2018 20:09 [facility] ABS Lymphs 3.64(H) 1.09 - 3.30 K/cmm 05/09/2018 20:09 [facility] ABS Monocytes 0.79 0.1 - 0.8 K/cmm 05/09/2018 20:09 [facility] ABS Eosinophils 0.07 0.03 - 0.61 K/cmm 05/09/2018 20:09 [facility] ABS Basophils 0.06 0.01 - 0.11 K/cmm 05/09/2018 20:09 [facility] ABS Immature Grans 0.05 0 - 0.06 K/cmm 05/09/2018 20:09 [facility] Type of Diff: Automated 05/09/2018 20:09 [facility] BLOOD SPECIMEN / Unknown 05/09/2018 12:06 EST 05/09/2018 19:50 EST Annette Sidhu APRN PACKAGES & DNA PROBE ORDERABLES [facility] [address] [place] [address] documented in this encounter Visit Diagnoses Not on filedocumented in this encounter Additional Health Concerns Infection Onset Date Last Indicated Resolved Time MRSA Comment:IP note: risk factors - DM, obesity Pos sinus 06/30/17 M Chito 07/01/17 07/01/2017 07/01/2017 documented as of this encounter Care Teams Production Line Worker Relationship Specialty Start Date End Date Annette Sidhu APRN [address] [place] [phone] PCP - General 03/19/13 07/06/19 documented as of this encounter
--- OUTSIDE RECORDS SUMMARY | 2024-02-17 18:39 | XMS_ITS | Encounter Summary ---
Author Organization [facility] Address [address] [place] [address] Care Team Providers Care Automotive Sales Specialist Name Role Phone Annette Sidhu APRN Primary Care Provider + [phone] Jossie Patton APRN Primary Care Provider + [phone] Stephanie Santos MD Primary Care Provider [phone] Reason for Visit * Reason Comments Other Encounter Details Date Type Department Care Team (Late st Contact Info) Description 03/28/2015 Refill [facility] OBGYN Services - [address] [address] Eduardo Friend MD [address] [place] [address] [place] [address] Other Social History Tobacco Use Types Packs/Day [...] Component Type 2 diabetes mellitus ([facility]) 8.7(07/07/2015 5:05 EST) No Annmarie Vigil documented as of this encounter Visit Diagnoses Not on filedocumented in this encounter Additional Health Concerns Infection Onset Date Last Indicated Resolved Time MRSA Comment:IP note: risk factors - DM, obesity Pos sinus 06/30/17 M Chito 07/01/17 07/01/2017 07/01/2017 documented as of this encounter Care Teams Automotive Sales Specialist Relationship Specialty Start Date End Date Annette Sidhu APRN [address] [place] [phone] PCP - General 03/19/13 07/06/19 Jossie Patton APRN [address] [place] [phone] PCP - General 07/07/19 11/10/23 Stephanie Santos MD [address] [place], [place] [address] PCP - General Family Medicine - Primary Care 11/11/23 documented as of this encounter
--- OUTSIDE RECORDS SUMMARY | 2024-02-17 18:39 | XMS_ITS | Encounter Summary ---
Author Organization [facility] Address [address] [place] [address] Care Team Providers Care Skirt Clipper Name Role Phone Annette Sidhu APRN Primary Care Provider + [phone] Jossie Patton APRN Primary Care Provider + [phone] Stephanie Santos MD Primary Care Provider [phone] Reason for Visit * Reason Comments Other Encounter Details Date Type Department Care Team (Late st Contact Info) Description 04/18/2015 Refill [facility] OBGYN Services - [address] [address] Eduardo Friend MD [address] [place] [address] [place] [address] Other Social History Tobacco Use Types Packs/Day [...] Component Type 2 diabetes mellitus ([facility]) 8.7(07/07/2015 5:05 EST) No Annmarie Vigil documented as of this encounter Visit Diagnoses Not on filedocumented in this encounter Additional Health Concerns Infection Onset Date Last Indicated Resolved Time MRSA Comment:IP note: risk factors - DM, obesity Pos sinus 06/30/17 M Chito 07/01/17 07/01/2017 07/01/2017 documented as of this encounter Care Teams Skirt Clipper Relationship Specialty Start Date End Date Annette Sidhu APRN [address] [place] [phone] PCP - General 03/19/13 07/06/19 Jossie Patton APRN [address] [place] [phone] PCP - General 07/07/19 11/10/23 Stephanie Santos MD [address] [place], [place] [address] PCP - General Family Medicine - Primary Care 11/11/23 documented as of this encounter
--- OUTSIDE RECORDS SUMMARY | 2024-02-17 18:39 | XMS_ITS | Encounter Summary ---
Author Organization [facility] Address [address] [place] [address] Care Team Providers Care Display Trimmer Name Role Phone Nahum Annette Kay APRN Primary Care Provider Encounter Details Date Type Department Care Team (Late st Contact Info) Description 08/29/2016 Results Only [facility] [phone] Josselin Fuentes MD [address] [place] [address] Social History Tobacco Use Types Packs/Day Years [...] Component Type 2 diabetes mellitus ([facility]) 8.7(07/07/2015 5:05 EST) No [...] ? HILDA CROWLEY ? Accession #: ? [id number] ? : ? 1975 (Age: 41) ??F [...] types 16,18,31,33,35, 39,45,51,52,56,58, 59,66, and 68 by transcription typist mediated amplification. Comments Document reviewed and electronically signed by: ? System Interface ? Report date: 09/10/2016 By the signature above, the attending physician certifies that he/she has personally conducted a gross and/or microscopic examination of the described specimens and rendered or confirmed the above diagnosis. End of Report [facility] 08/29/2016 08/30/2016 Josselin Fuentes MD PATHOLOGY OR DERABLES Performing Organization Address City/State/[facility] Co de Phone Number [facility] [address] [place] [address] documented in this encounter Visit Diagnoses Not on filedocumented in this encounter Care Teams Display Trimmer Relationship Specialty Start Date End Date Annette Sidhu, CONSTRUCTION TEACHER [address] [place] [phone] PCP - General 03/19/13 07/06/19 documented as of this encounter
--- OUTSIDE RECORDS SUMMARY | 2024-02-17 18:39 | XMS_ITS | Encounter Summary ---
Author Organization [facility] Address [address] [place] [address] Care Team Providers Care Joint Cleaning Machine Operator Name Role Phone Jossie Patton RADHA Primary Care Provider [phone] Reason for Visit * Reason Onset Date Comments Medication Management 07/07/2019 Encounter Details Date Type Department Care Team (Late st Contact Info) Description 07/07/2019 Telephone [facility] - [address] [address] Lucía Ku RN Medication Management [...] Component Type 2 diabetes mellitus ([facility]) 8.7(07/07/2015 5:05 EST) Annmarie Lopez documented as of this encounter Visit Diagnoses Not on filedocumented in this encounter Additional Health Concerns Infection Onset Date Last Indicated Resolved Time MRSA Comment:IP note: risk factors - DM, obesity Pos sinus 06/30/17 M Chito 07/01/17 07/01/2017 07/01/2017 documented as of this encounter Care Teams Joint Cleaning Machine Operator Relationship Specialty Start Date End Date Jossie Patton APRN [address] [place] [phone] PCP - General 07/07/19 11/10/23 documented as of this encounter
--- OUTSIDE RECORDS SUMMARY | 2024-02-17 18:39 | XMS_ITS | Encounter Summary ---
Author Organization [facility] Address [address] [place] [address] Care Team Providers Care Chocolate Finisher Operator Name Role Phone Jossie Patton RADHA [...] Type 2 diabetes mellitus ([facility]) 8.7(07/07/2015 5:05 EST) No Annmarei Vigil documented as of this encounter Visit Diagnoses Not on filedocumented in this encounter Additional Health Concerns Infection Onset Date Last Indicated Resolved Time MRSA Comment:IP note: risk factors - DM, obesity Pos sinus 06/30/17 M Chito 07/01/17 07/01/2017 07/01/2017 documented as of this encounter Care Teams Chocolate Finisher Operator Relationship Specialty Start Date End Date Jossie Patton, RADHA [address] [place] [phone] PCP - General 07/07/19 11/10/23 documented as of this encounter
--- OUTSIDE RECORDS SUMMARY | 2024-02-17 18:39 | XMS_ITS | Encounter Summary ---
Author Organization [facility] Address [address] [place] [address] Care Team Providers Care Road Sign Installer Name Role Phone Annette Sidhu APRN Primary Care Provider [phone] Reason for Referral * Consult (Routine) - Closed Specialty Diagnoses / Procedures [facility] Referred To Contact Pain Medicine Diagnoses Chronic left SI joint pain Barbara Iglesias PA-C [address] [place] [phone] [facility] [address] [facility] [place] [address] Referral ID Status Reason Start Date Expiration Date V isits Requested Visits Authorized [id number] Closed Specialty Services Required 03/18/2015 1 1 [...] st Contact Info) Description 03/18/2015 Orders Only [facility] - [place] [address] [place] [address] Barbara Iglesias PA-C [address] [place] [phone] Chronic left SI joint pain (Primary [...] Type 2 diabetes mellitus ([facility]) 8.7(07/07/2015 5:05 EST) No Annmarie Vigil documented as of this encounter Visit Diagnoses Diagnosis Chronic left 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
--- OUTSIDE RECORDS SUMMARY | 2024-02-17 18:39 | XMS_ITS | Encounter Summary ---
Author Organization [facility] Address [address] [place] [address] Care Team Providers Care Principle Software Engineer Name Role Phone Annette Sidhu APRN Primary Care Provider Reason for Visit * Reason Comments Personal Problem Boil on labia x6 d ays. Using warm compresses and was able to express some fluid last night. Encounter Details Date Type Department Care Team (Late st Contact Info) Description 11/23/2015 10:30 EDT Office Visit [facility] OBGYN Services - [address] [id number] Sarita Blount MD [address] [place] [address], [address] [place] [phone] Left genital labial abscess (Primary [...] Component Type 2 diabetes mellitus ([facility]) 8.7(07/07/2015 5:05 EST) No Annmarie Vigil [...] daily. added in this encounter Care Teams Principle Software Engineer Relationship Specialty Start Date End Date Annette Sidhu APRN [address] [place] [phone] PCP - General 03/19/13 07/06/19 documented as of this encounter
--- OUTSIDE RECORDS SUMMARY | 2024-02-17 18:39 | XMS_ITS | Encounter Summary ---
Author Organization [facility] Address [address] [place] [address] Care Team Providers Care Radiophone Operator Name Role Phone Bhargav Mccarty APRN Primary Care Provider [phone] Encounter Details Date Type Department Care Team (Latest Contact Info) Description 12/02/2014 10:08 EDT - 12/02/2014 23:59 EDT Hospital Encounter [facility] [address] [place] [address] Bhargav Mccarty APRN [address] [facility] [address] [place] [phone] Discharge Disposition: Home or Self [...] Type 2 diabetes mellitus ([facility]) 8.7(07/07/2015 5:05 EST) No [place] Annmarie [...] on filedocumented in this encounter Care Teams Radiophone Operator Relationship Specialty Start Date End Date Bhargav Mccarty APRN [address] [place] [phone] PCP - General 03/19/13 07/06/19 documented as of this encounter
--- OUTSIDE RECORDS SUMMARY | 2024-02-17 18:39 | XMS_ITS | Encounter Summary ---
Author Organization [facility] Address [address] [place] [address] Care Team Providers Care Political Worker Name Role Phone Annette Sidhu APRN Primary Care Provider [phone] Encounter Details Date Type Department Care Team (Latest Contact Info) Description 05/09/2018 18:37 EST - 05/09/2018 23:59 [facility] Hospital Encounter [facility] [address] [place] [address] Annette Sidhu APRN [address] [phone] Discharge Disposition: Home or Self [...] diabetes mellitus ([facility]) 8.7(07/07/2015 5:05 EST) No Annmarie Vigil documented as of this encounter Visit Diagnoses Not on filedocumented in this encounter Additional Health Concerns Infection Onset Date Last Indicated Resolved Time MRSA Comment:IP note: risk factors - DM, obesity Pos sinus 06/30/17 M Chito 07/01/17 07/01/2017 07/01/2017 documented as of this encounter Care Teams Political Worker Relationship Specialty Start Date End Date Annette Sidhu, POKER ROOM MANAGER [address] [place] [phone] PCP - General 03/19/13 07/06/19 documented as of this encounter
--- OUTSIDE RECORDS SUMMARY | 2024-02-17 18:39 | XMS_ITS | Encounter Summary ---
Author Organization [facility] Address [address] [place] [address] Care Team Providers Care Scarfing Machine Operator Name Role Phone Jossie Patton RADHA Primary Care Provider [phone] Encounter Details Date Type Department Care Team (Latest Contact Info) Description 07/07/2019 11:00 EDT Phlebotomy Only [facility] Endocrinology - [address] [address] Phlebotomy, [facility] Uncontrolled type 2 diabetes mellitus with hyperglycemia [...] charged for at time of collection at [facility]): Albumin urine I was supervised by [...] diabetes mellitus ([facility]) 8.7(07/07/2015 5:05 EST) No Annmarie Vigil documented as of this encounter Procedures Procedure Name Priority Date/Time Associated Diagnosis Comments URINE AOEGAOP-PC-QAMNWGWITU RATIO (ACR) Routine 07/07/2019 11:39 EDT Uncontrolled type 2 diabetes mellitus with hyperglycemia ([facility]) LDL, DIRECT Today 07/07/2019 11:37 EDT Uncontrolled type 2 diabetes mellitus with hyperglycemia ([facility]) VITAMIN D (25,[place]) Routine 07/07/2019 11: 37 EDT Hypercalcemia PTH INTACT Routine 07/07/2019 11:37 EDT Hypercalcemia FRUCTOSAMINE Routine 07/07/2019 11:37 EDT Uncontrolled type 2 diabetes mellitus with hyperglycemia ([facility]) PHOSPHORUS Routine 07/07/2019 11:37 EDT Hypercalcemia LIPID PROFILE (INCLUDES CHOLESTEROL, TRIGLYCERIDES, HDL, LDL) Routine 07/07/2019 11:37 EDT Uncontrolled type 2 diabetes mellitus with hyperglycemia ([facility]) COMPREHENSIVE METABOLIC PANEL (CMP) Routine 07/07/2019 11:37 EDT Uncontrolled type 2 diabetes mellitus with hyperglycemia ([facility]) documented in this encounter Results * ALBUMIN, URINE (07/07/2019 11:39 EDT) Albumin, Urine <0.6 See Note mg/dL 2019 15:16 EDT [facility] Comment: NOTE: Reference range not established Creatinine, Urine 30.4 See Note mg/dL 07/07/2019 15:16 EDT [facility] Comment: NOTE: Reference range not established Lab Urine Albumin to Creatinine Ratio <20 <30 ug/mg Creatinine 07/07/2019 15:16 EDT [facility] Comment: Urine Albumin/Creatinine Ratio: Normal: <30 ug/mg Creatinine Moderately increased albuminuria: 30-30 ug/mg Creatinine Severley increased albuminuria: >300 ug/mg Creatinine Urine URINE SPECIMEN OBTAINED BY CLEAN CATCH PROCEDURE / Unknown Urine Collect / Unknown 07/07/2019 11:39 EDT 07/07/2019 11:40 EDT Tio Ray MD CHEMISTRY & BLOOD GAS ORDERABLES Performing Organization Address [facility] Co de Phone Number [facility] [address] [place] [address] * LDL, DIRECT ([facility]) (07/07/2019 11:37 EDT) LDL, Direct 168 See Note mg/dL 07/07/2019 16:56 EDT [facility] Comment: LDL, Direct Reference Ranges: Optimal: Less than 100 mg/dL Above Optimal: 100-129 mg/dL Borderline High: 130-159 mg/dL High: 160-189 mg/dL Very High: Greater than or equal to 190 mg/dL Blood VENOUS BLOOD / Unknown Venipuncture / Unknown 07/07/2019 11:37 EDT 07/07/2019 11:40 EDT Tio Ray MD CHEMISTRY & BLOOD GAS ORDERABLES Performing Organization Address City/[facility]/ZIP Co de Phone Number [facility] [address] [place] [address] * PHOSPHORUS (07/07/2019 11:37 EDT) Phosphorus 4.1 2.5 - 4.5 mg/dL 07/07/2019 14:59 EDT [facility] Blood VENOUS BLOOD / Unknown Venipuncture / Unknown 07/07/2019 11:37 EDT 07/07/2019 11:40 EDT Tio Ray MD CHEMISTRY & BLOOD GAS ORDERABLES Performing Organization Address [facility] Co de Phone Number [facility] [address] [place] [address] * (ABNORMAL) VITAMIN D (25,[place]) (07/07/2019 11:37 EDT) 25OH Vitamin D Tot 29.0(L) 30.0 - 100.0 ng/mL 07/08/2019 10:49 EDT [facility] Comment: Vitamin D 25,OH Interpretive Ranges: Deficiency: ??<10.0 ng/mL Insufficiency: ??10.0 - 30.0 ng/mL Sufficiency: ??30.0 - 100.0 ng/mL Toxicity: ??>100.0 ng/mL Blood VENOUS BLOOD / Unknown Venipuncture / Unknown 07/07/2019 11:37 EDT 07/07/2019 11:40 EDT Tio Ray MD CHEMISTRY & BLOOD GAS ORDERABLES Performing Organization Address [facility]/ZIP Co de Phone Number [facility] [address] [place] [address] * PTH INTACT (07/07/2019 11:37 EDT) Intact PTH 27 19 - 88 pg/mL 07/08/2019 11:42 EDT [facility] Blood VENOUS BLOOD / Unknown Venipuncture / Unknown 07/07/2019 11:37 EDT 07/07/2019 11:40 EDT Tio Ray MD CHEMISTRY & BLOOD GAS ORDERABLES [facility] [address] [place] [address] * (ABNORMAL) FRUCTOSAMINE (07/07/2019 11:37 EDT) Fructosamine, S 425(H) 200 - 285 mcmol/L 07/08/2019 13:32 EDT [facility] Comment: Test Performed by: [facility] [address] [place] [address] Coin Collector: Lloyd Barker M.D. Ph.D.; CLIA# [id number] Blood VENOUS BLOOD / Unknown Venipuncture / Unknown 07/07/2019 11:37 EDT 07/07/2019 11:40 EDT Tio Ray MD CHEMISTRY & BLOOD GAS ORDERABLES [facility] [address] [place] [address] * (ABNORMAL) COMPREHENSIVE METABOLIC PANEL (CMP) (07/07/2019 11:37 EDT) Pathologist [facility] Sodium 135(L) 136 - 145 mEq/L 07/07/2019 14:59 EDT [facility] Potassium 4.2 3.5 - 5.0 mEq/L 07/07/2019 14:59 EDT [facility] Chloride 101 96 - 110 mEq/L 07/07/2019 14:59 EDT [facility] CO2 Total 19(L) 22 - 32 mEq/L 07/07/2019 14:59 EDT [facility] Glucose 281(H) 70 - 100 mg/dL 07/07/2019 14:59 EDT [facility] BUN 8(L) 10 - 26 mg/dL 07/07/2019 14:59 EDT [facility] Creatinine 0.69 0.52 - 1.04 mg/dL 07/07/2019 14:59 EDT [facility] eGFR 108 >60 mL/min/1.7 3m2 07/07/2019 14:59 EDT [facility] Comment:eGFR calculated usin g CKD-EPI equation for non- Americans. Multiply eGFR by 1.16 for patients. Total Protein 7.9 6.3 - 8.2 g/dL 07/07/2019 14:59 EDT [facility] Albumin 5.0(H) 3.4 - 4.9 g/dL 07/07/2019 14:59 T [facility] Alkaline Phosphatase 115 38 - 126 U/L 07/07/2019 14:59 T [facility] AST 89(H) 15 - 46 U/L 07/07/2019 14:59 [facility] ALT 68(H) <35 U/L 07/07/2019 14:59 [facility] Bilirubin, Total 0.9 <1.4 mg/dL 07/07/19 20 14:59 [facility] Calcium 10.4 8.5 - 10.5 mg/dL 07/07/2019 14:59 [facility] Calculated Calcium 9.6 8.5 - 10.5 mg/dL 07/07/2019 14:59 [facility] Blood VENOUS BLOOD / Unknown Venipuncture / Unknown 07/07/2019 11:37 EDT 07/07/2019 11:40 EDT Narrative [facility] - 07/07/2019 14:59 EDT 1 Tio Ray MD CHEMISTRY & BLOOD GAS ORDERABLES [facility] [address] [place] [address] * LIPID PROFILE (INCLUDES CHOLESTEROL, TRIGLYCERIDES, HDL, LDL) (07/07/2019 11:37 EDT) Cholesterol 301 See Note mg/dL 07/07/2019 16:22 EDT [facility] Comment: Acceptable: ?<200 mg/dL Borderline High: 200-239 mg/dL High: ?> or = 240 mg/dL HDL 56 See Note mg/dL 07/07/2019 16:22 [facility] Comment: Low: ? <40 mg/dL Normal: ??40-60 mg/dL High: ?>60 mg/dL LDL, Calculated 0 16:22 [facility] Comment: Optimal: ? <100 mg/dL Near Optimal: ?100-129 mg/dL Borderline High: 130-159 mg/dL High: ?160-189 mg/dL Very High: ? > or = 190 mg/dL Calculated LDL invalid, triglycerides >400 mg/dL Direct LDL measurement added by reflex. Triglyceride 742 See Note mg/dL 07/07/2019 16:22 [facility] Comment: Normal: ? <150 mg/dL Borderline High: ??150 - 199 mg/dL High: ? 200 - 499 mg/dL Very High: ?> or = 500 mg/dL Chol/HDL Ratio 5.4 See Note 07/07/2019 16:22 [facility] Comment: No reference range has been established for CHOL/HDL ratio. Non HDL Cholesterol 245 See Note mg/dL 07/07/2019 16:22 [facility] Comment: Desirable: ?<130 mg/dL Borderline High: ??130-159 mg/dL High: ? 160-189 mg/dL Very High: ?> or = 190 mg/dL Blood VENOUS BLOOD / Unknown Venipuncture / Unknown 07/07/2019 11:37 EDT 07/07/2019 11:40 EDT Narrative [facility] - 07/07/2019 16:22 EDT 1 Tio Ray MD CHEMISTRY & BLOOD GAS ORDERABLES [facility] [address] [place] [address] documented in this encounter Visit Diagnoses Diagnosis Uncontrolled type 2 diabetes mellitus with hyperglycemia ([facility]) Hypercalcemia documented in this encounter Additional Health Concerns Infection Onset Date Last Indicated Resolved Time MRSA Comment:IP note: risk factors - DM, obesity Pos sinus 06/30/17 M Chito 07/01/17 07/01/2017 07/01/2017 documented as of this encounter Care Teams Scarfing Machine Operator Relationship Specialty Start Date End Date Jossie Patton, RADHA [address] [place] [phone] PCP - General 07/07/19 11/10/23 documented as of this encounter
--- OUTSIDE RECORDS SUMMARY | 2024-02-17 18:39 | XMS_ITS | Encounter Summary ---
Author Organization [facility] Address [address] [place] [address] Care Team Providers Care Medical Doctor Md Name Role Phone Annette Sidhu APRN Primary Care Provider [phone] Encounter Details Date Type Department Care Team (Latest Contact Info) Description 02/09/2019 9:33 EDT - 02/09/2019 9:38 EDT Hospital Encounter [facility] [address] [place] [address] Annette Sidhu APRN [address] [facility] [address] [place] [address] Discharge Disposition: Home or Self [...] 2 diabetes mellitus ([facility]) 8.7(07/07/2015 5:05 EST) No Annmarie Vigil documented as of this encounter Visit Diagnoses Not on filedocumented in this encounter Additional Health Concerns Infection Onset Date Last Indicated Resolved Time MRSA Comment:IP note: risk factors - DM, obesity Pos sinus 06/30/17 M Chito 07/01/17 07/01/2017 07/01/2017 documented as of this encounter Care Teams Medical Doctor Md Relationship Specialty Start Date End Date Annette Sidhu, PLANT OPERATIONS COORDINATOR [address] [place] [phone] PCP - General 03/19/13 07/06/19 documented as of this encounter
--- OUTSIDE RECORDS SUMMARY | 2024-02-17 18:39 | XMS_ITS | Encounter Summary ---
Author Organization [facility] Address [address] [place] [address] Care Team Providers Care Zipper Measurer Name Role Phone Annette Sidhu APRN Primary Care Provider [phone] Reason for Visit * Reason Onset Date Comments Other 08/01/2017 Encounter Details Date Type Department Care Team (Late st Contact Info) Description 08/01/[address] [address] Peter Barber MD [address] [place] [address] Other Social History Tobacco Use [...] She's aware CT scan is approved at [facility] until 10/30. documented in this encounter Plan of Treatment Not on file documented as of this encounter Goals Goal Patient Goal Type Associated Problems Recent Progress Patient-Stated? Author HEMOGLOBIN A1C < 7.0 Result Component Type 2 diabetes mellitus ([facility]) 8.7(07/07/2015 5:05 EST) No Annmarie Vigil documented as of this encounter Visit Diagnoses Not on filedocumented in this encounter Additional Health Concerns Infection Onset Date Last Indicated Resolved Time MRSA Comment:IP note: risk factors - DM, obesity Pos sinus 06/30/17 M Chito 07/01/17 07/01/2017 07/01/2017 documented as of this encounter Care Teams Zipper Measurer Relationship Specialty Start Date End Date Annette Sidhu APRN [address] [place] [phone] PCP - General 03/19/13 07/06/19 documented as of this encounter
--- OUTSIDE RECORDS SUMMARY | 2024-02-17 18:39 | XMS_ITS | Encounter Summary ---
Author Organization [facility] Address [address] [place] [address] Care Team Providers Care Motor Pool Driver Name Role Phone N[place]um Annette Kay APRN Primary Care Provider Reason for Visit * Reason Comments Ankle Injury right Encounter Details Date Type Department Care Team (Latest Contact Info) Description 04/30/2016 16:49 EST - 04/30/2016 19:39 EST Hospital Encounter [facility] Urgent Care - [address] [address] Quincy Gonsalves MD [address] [place] [phone] Unknown, Provider, Sprain of right ankle, unspecified [...] sent through Care Everywhere. * ANKLE SPRAIN (KAZAKH) documented in this encounter Medications at Time [...] immediate pain. She was seen in the [facility] emergency room that evening and thinks she [...] 550mg Opthalmology- 08/2013 TSH- 1.06 HgbA1c- 7.4 CORRECTION Detailed - Marginal cord insertion echo - [...] of further medications. Upon departure from [facility], the patient's pain was 3 on a zero to ten scale. Condition at departure from the [facility] : [facility] 04/30/2016 19:27 * Cristal Menendez RN - 04/30/2016 1700 EST Pt presents with right ankle pain ( lateral malleolus) and swelling s/p inversion injury 04/29/16 around 15:00. Was seen at [facility] yesterday , xray negative for fx, diagnosed [...] Type 2 diabetes mellitus ([facility]) 8.7(07/07/2015 5:05 EST) No Annmarie Vigil [...] documented as of this encounter Care Teams Motor Pool Driver Relationship Specialty Start Date End Date Annette Sidhu APRN [address] [place] [phone] PCP - General 03/19/13 07/06/19 documented as of this encounter
--- OUTSIDE RECORDS SUMMARY | 2024-02-17 18:39 | XMS_ITS | Encounter Summary ---
Author Organization [facility] Address [address] [place] [address] Care Team Providers Care Control Tower Radio Operator Name Role Phone Annette Sidhu APRN Primary Care Provider [phone] Reason for Visit * Reason Comments Follow-up right hand Encounter Details Date Type Department Care Team (Latest Contact Info) Description 11/14/2015 13:43 EDT - 11/14/2015 17:39 EDT Hospital Encounter [facility] - [address] [address] Nilson Boykin MD [address] [place] [phone] Unknown, Provider, Radial nerve palsy, right (Primary [...] * NEUROPATHY: RADIAL NERVE: SATURDAY NIGHT PALSY (LITHUANIAN) documented in this encounter Medications at Time [...] - 11/14/2015 1506 EDT Pt seen at [facility] last Saturday morning for possible overmedicating on [...] her home. Her parents brought her to [facility] ED where she was admitted to the [...] nurse on the L&D or floor at [facility]. Review of Systems Review of Systems Constitutional: [...] tomorrow (11/14/15) at 2:40pm with Orthopedics at [facility] in [place] DISPOSITION: Discharged The patient's pain was managed to an adequate level weighing risk vs. benefit of further medications. Upon departure from the Emergency Department, the patient's pain was 1 on a zero to ten scale. Condition at departure from the Emergency Department: Improved PCP: Annette Sidhu [facility] Jossie Méndez MD Family Medicine, PGY1 11/14/201517:39 No flowsheet data found. documented in this encounter Plan of Treatment Not on file documented as of this encounter Goals Goal Patient Goal Type Associated Problems Recent Progress Patient-Stated? Author HEMOGLOBIN A1C < 7.0 Result Component Type 2 diabetes mellitus ([facility]) 8.7(07/07/2015 5:05 EST) No Annmarie [...] 11/14/2015 documented in this encounter Care Teams Control Tower Radio Operator Relationship Specialty Start Date End Date Annette Sidhu APRN [address] [place] [phone] PCP - General 03/19/13 07/06/19 documented as of this encounter
--- OUTSIDE RECORDS SUMMARY | 2024-02-17 18:39 | XMS_ITS | Encounter Summary ---
Author Organization [facility] Address [address] [place] [address] Care Team Providers Care Vault Installer Name Role Phone Annette Sidhu APRN Primary Care Provider Reason for Referral * Consult (Routine) - Closed Specialty Diagnoses / Procedures Referred By Contac t Referred To Contact Chiropractic Medicine Diagnoses Bilateral low back pain, with sciatica presence unspecified Chronic left SI joint pain Barbara Iglesias PA-C [address] [place] [phone] Referral ID Status Reason Start Date Expiration Date V isits Requested Visits Authorized [id number] Closed Specialty Services Required 03/17/2015 1 1 [...] SI joint pain Barbara Iglesias PA-C [address] [place] [phone] [facility] [address] [facility] [place] [address] Referral ID Status Reason Start Date Expiration Date V isits Requested Visits Authorized [id number] Closed Specialty Services Required 03/17/2015 1 0 [...] 2 OR MORE VIEWS Barbara Iglesias PA-C [address] [place] [phone] Referral ID Status Reason Start Date Expiration Date Visits Re quested Visits Authorized [id number] Closed 03/17/2015 1 1 * Radiology Services (Routine) - Closed Specialty Diagnoses / Procedures Referred By Contac t Referred To Contact Diagnoses Bilateral low back pain, with sciatica presence unspecified Procedures L SPINE 4 OR MORE VIEWS Barbara Iglesias PA-C [address] [place] [phone] Referral ID Status Reason Start Date Expiration Date Visits Re quested Visits Authorized [id number] Closed 03/17/2015 1 1 Reason for Visit * Reason Comments Back Pain Encounter Details Date Type Department Care Team (Late st Contact Info) Description 03/17/2015 9:45 EST Office Visit 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 [...] options to include expectant management, physical therapy, long term acute care registered nurse, medication trials and injection options. At this [...] L5 for therapeutic effect 2: Referral for long term acute care registered nurse given 3: continue pain medications as prescribed [...] with speech recognition software and/or keyboard data warehouse specialist techniques. Minor irregularities may be present. documented [...] Type 2 diabetes mellitus ([facility]) 8.7(07/07/2015 [...] sacroiliac joints appear congruent. Barbara Iglesias PA-C [facility] DIAGNOSTIC IMAGING ORDERABLES * L SPINE 4 [...] 11/14/2015 added in this encounter Care Teams Vault Installer Relationship Specialty Start Date End Date Annette Sidhu APRN [address] [place] [phone] PCP - General 03/19/13 07/06/19 documented as of this encounter
--- OUTSIDE RECORDS SUMMARY | 2024-02-17 18:39 | XMS_ITS | Encounter Summary ---
Author Organization [facility] Address [address] [place] [address] Care Team Providers Care Vocal Music Teacher Name Role Phone Annette Sidhu APRN Primary Care Provider [phone] Encounter Details Date Type Department Care Team (Late st Contact Info) Description 07/30/2017 Results Only [facility] [phone] Unknown, Provider, Social History Tobacco Use Types [...] Component Type 2 diabetes mellitus ([facility]) 8.7(07/07/2015 5:05 EST) No Annmarie Vigil documented as of this encounter Visit Diagnoses Not on filedocumented in this encounter Additional Health Concerns Infection Onset Date Last Indicated Resolved Time MRSA Comment:IP note: risk factors - DM, obesity Pos sinus 06/30/17 M [place] 07/01/17 07/01/2017 07/01/2017 documented as of this encounter Care Teams Vocal Music Teacher Relationship Specialty Start Date End Date Annette Sidhu, LOCKSTITCH COAT JOINER [address] [place] [phone] PCP - General 03/19/13 07/06/19 documented as of this encounter
--- OUTSIDE RECORDS SUMMARY | 2024-02-17 18:39 | XMS_ITS | Encounter Summary ---
Author Organization [facility] Address [address] [place] [address] Care Team Providers Care Special Forces Weapons Sergeant Name Role Phone Annette Sidhu APRN Primary Care Provider [phone] Encounter Details Date Type Department Care Team (Latest Contact Info) Description 07/07/2015 21:07 EST - 07/07/2015 21:08 [facility] Hospital Encounter [facility] [address] [place] [address] Annette Sidhu APRN [address] [place] [phone] Discharge Disposition: Home or Self Care [...] 2 diabetes mellitus ([facility]) 8.7(07/07/2015 5:05 EST) Annmarie Lopez documented as of this encounter Visit Diagnoses Not on filedocumented in this encounter Care Teams Special Forces Weapons Sergeant Relationship Specialty Start Date End Date Annette Sidhu APRN [address] [place] [phone] PCP - General 03/19/13 07/06/19 documented as of this encounter
--- OUTSIDE RECORDS SUMMARY | 2024-02-17 18:39 | XMS_ITS | Encounter Summary ---
Author Organization [facility] Address [address] [place] [address] Care Team Providers Care Test Clerk Name Role Phone Annette Sidhu APRN Primary Care Provider Encounter Details Date Type Department Care Team (Latest Contact Info) Description 10/25/2014 12:47 EDT - 10/25/2014 12:58 EDT Hospital Encounter [address] [address] WAITING, TO BE ADDED Mirian Esparza, RUI [...] Component Type 2 diabetes mellitus ([facility]) 8.7(07/07/2015 5:05 EST) No Annmarie Vigil documented as of this encounter Visit Diagnoses Not on filedocumented in this encounter Care Teams Test Clerk Relationship Specialty Start Date End Date Annette Sidhu, CLIENT TECHNICAL SPECIALIST [address] [place] [phone] PCP - General 03/19/13 07/06/19 documented as of this encounter
--- OUTSIDE RECORDS SUMMARY | 2024-02-17 18:39 | XMS_ITS | Encounter Summary ---
Author Organization [facility] Address [address] [place] [address] Care Team Providers Care Unit Control Clerk Name Role Phone Annette Sidhu APRN Primary Care Provider [phone] Jossie Patton APRN Primary Care Provider [phone] Stephanie Santos MD Primary Care Provider [phone] Encounter Details Date Type Department Care Team (Late st Contact Info) Description 05/05/2019 Lab Requisition [facility] Pathology & Laboratory Medicine - [address] [address] Terry Angel MD [address] [place] [phone] Bipolar II disorder ([facility]) Social History Tobacco Use Types Packs/Day Years [...] diabetes mellitus ([facility]) 8.7(07/07/2015 5:05 EST) No Annmarie Vigil documented as of this encounter Procedures Procedure Name Priority Date/Time Associated Diagnosis Comments LITHIUM Routine 05/05/2019 11:56 EST Bipolar II disorder ([facility]) documented in this encounter Results * LITHIUM (05/05/2019 11:56 EST) [place] 0.5 See Note mEq/L 05/05/2019 16:29 EST [facility] Comment: Therapeutic Range for [place]: 18 years and older: ??0.6 - 1.2 mEq/L Therapeutic range not established for individuals <18 years old. Blood VENOUS BLOOD / Unknown 05/05/2019 11:56 EST 05/05/2019 16:04 EST Terry Angel MD CHEMISTRY & BLOOD G ORDERABLES [facility] [address] [place] [address] documented in this encounter Visit Diagnoses Diagnosis Bipolar II disorder ([facility]) Other bipolar disorders documented in this encounter Additional Health Concerns Infection Onset Date Last Indicated Resolved Time MRSA Comment:IP note: risk factors - DM, obesity Pos sinus 06/30/17 M Chito 07/01/17 07/01/2017 07/01/2017 documented as of this encounter Care Teams Unit Control Clerk Relationship Specialty Start Date End Date Annette Sidhu APRN [address] [place] [phone] PCP - General 03/19/13 07/06/19 Jossie Patton APRN [address] [place] [phone] PCP - General 07/07/19 11/10/23 Stephanie Santos MD [address] [place], [place] [phone] PCP - General Family Medicine - Primary Care 11/11/23 documented as of this encounter
--- OUTSIDE RECORDS SUMMARY | 2024-02-17 18:39 | XMS_ITS | Encounter Summary ---
Author Organization [facility] Address [address] [place] [address] Care Team Providers Care Coating Line Worker Name Role Phone Annette Sidhu APRN Primary Care Provider [phone] Encounter Details Date Type Department Care Team (Latest Contact Info) Description 12/20/2015 10:13 EDT - 12/20/2015 11:59 EDT Hospital Encounter [facility] [address] [place] [address] Annette Sidhu APRN [address] [place] [phone] Discharge Disposition: Home or Self Care [...] 2 diabetes mellitus ([facility]) 8.7(07/07/2015 5:05 EST) No Annmarie Vigil documented as of this encounter Visit Diagnoses Not on filedocumented in this encounter Care Teams Coating Line Worker Relationship Specialty Start Date End Date Annette Sidhu APRN [address] [place] [phone] PCP - General 03/19/13 07/06/19 documented as of this encounter
--- OUTSIDE RECORDS SUMMARY | 2024-02-17 18:39 | XMS_ITS | Encounter Summary ---
Author Organization [facility] Address [address] [place] [address] Care Team Providers Care Senior Project Accountant Name Role Phone Annette Sidhu APRN Primary Care Provider Encounter Details Date Type Department Care Team (Late st Contact Info) Description 07/07/2015 Results Only [facility] [phone] Annette Sidhu APRN [address] [phone] Social History Tobacco Use Types [...] Result Component Type 2 diabetes mellitus ([facility]) 8.7(07/07/2015 5:05 EST) No Annmarie Vigil documented [...] held for 5 days. 07/07/2015 17:21 EST [facility] BLOOD SPECIMEN / Unknown 07/07/2015 6:00 EST 07/07/2015 17:13 EST Annette Sidhu APRN LAB INFO SERVICE AND SUPPORT & PHONE RESULT [facility] [address] [place] [address] * HEMOGLOBIN A1C (07/07/2015 5:05 EST) Hemoglobin A1C 8.7 % 07/08/2015 10:09 EST [facility] Comment: Reference Range: <5.7% Normal 5.7-6.4% Increased risk for diabetes =>6.5% Diagnostic for diabetes (if confirmed) The A1c goal for non adults in general is <7%. The A1c goal for selected patients may be significantly lower than 7% if this can be achieved without significant hypoglycemia or other adverse effects of treatment. Est Avg Glucose 203 mg/dl 6 10:09 EST [facility] Comment: eAG represents the A1c result expressed as average glucose in mg/dl. BLOOD SPECIMEN / Unknown 07/07/2015 5:05 EST 07/07/2015 17:13 EST Annette Sidhu JUTE BAG CLIPPER CHEMISTRY & BLOOD GA S ORDERABLES [facility] [address] [place] [address] * (ABNORMAL) HEMAGRAM AND DIFFERENTIAL (07/07/2015 5:05 EST) WBC 13.76(H) 4.0 - 12.4 K/cmm 07/07/2015 17:37 [facility] RBC 4.33 3.86 - 5.04 M/cmm 07/07/2015 17:37 [facility] Hemoglobin 13.1 11.6 - 15.2 gm/dl 07/07/2015 17:37 [facility] HCT 37.8 34.9 - 44.4 % 07/07/2015 17:37 [facility] MCV 87 81 - 98 fl 07/07/2015 17:37 [facility] MCH 30.3 26.7 - 33.3 pg 07/07/2015 17:37 [facility] MCHC 34.7 32.1 - 35.9 gm/dl 07/07/2015 17:37 [facility] RDW-CV 12.4 11.7 - 14.6 % 07/07/2015 17:37 [facility] RDW-SD 39.7 37.6 - 50.3 fl 07/07/2015 17:37 [facility] PLT 341 141 - 377 K/cmm 07/07/2015 17:37 [facility] MPV 10.8 9.5 - 12.7 fl 07/07/2015 17:37 [facility] Neutrophils 39.0 % 07/08/2015 12:40 [facility] Lymphocytes 60.0 % 07/08/2015 12:40 [facility] Basophils 1.0 % 07/08/2015 12:40 [facility] ABS Neutrophils 5.37 2.20 - 8.85 K/cmm 07/08/2015 12:40 EST [facility] ABS Lymphs 8.25(H) 1.09 - 3.30 K/cmm 07/08/2015 12:40 [facility] ABS Basophils 0.14(H) 0.01 - 0.11 K/cmm 07/08/2015 12:40 [facility] Differential Comment Rev'd by Pathologist 07/08/2015 12:40 [facility] Type of Diff: Manual 07/08/2015 12:40 [facility] BLOOD SPECIMEN / Unknown 07/07/2015 5:05 EST 07/07/2015 17:13 EST Annette Sidhu APRN PACKAGES & DNA PROBE ORDERABLES Performing Organization Address City/State/[facility] Co de Phone Number [facility] [address] [place] [address] documented in this encounter Visit Diagnoses Not on filedocumented in this encounter Care Teams Senior Project Accountant Relationship Specialty Start Date End Date Annette Siduh APRN [address] [place] [phone] PCP - General 03/19/13 07/06/19 documented as of this encounter
--- OUTSIDE RECORDS SUMMARY | 2024-02-17 18:40 | XMS_ITS | Encounter Summary ---
Author Organization [facility] Address [address] [place] [address] Care Team Providers Care Supervisor Wool Shearing Name Role Phone Annette Sidhu APRN Primary Care Provider Reason for Visit * Reason Comments Routine Visit Encounter Details Date Type Department Care Team (Late st Contact Info) Description 05/07/2014 10:20 EST Routine [facility] Obstetrics & [place] [address] Eduardo Friend MD [address] [place] [address] [place]: [id number] Social History Tobacco Use Types [...] for T21, T13, T18 Influenza vaccination 02/22/2014 SNF Detailed: marginal umbilical cord insertion Rhogam given 02/22/2014 Tdap vaccination 04/09/14 [ ] GBS pending [ ] Contraception FOREST FIRE SPECIALIST SUPERVISOR - nights L&D The patient was sent to L&D for extended monitoring. tachycardia Previous delivery, antepartum condition or complication The patient desires a repeat delivery. Plan for 39 weeks' gestation. Diabetes mellitus, antepartum(648.03) Baseline pre-eclampsia labs: Never did. First 24hr prot 03/2014, 550mg Opthalmology- 08/2013 TSH- 1.06 HgbA1c- 7.4 SNF Detailed - Marginal cord insertion echo - [...] 550mg Opthalmology- 08/2013 TSH- 1.06 HgbA1c- 7.4 SNF Detailed - Marginal cord insertion echo - [...] for T21, T13, T18 Influenza vaccination 02/22/2014 SNF Detailed: marginal umbilical cord insertion Rhogam given 02/22/2014 Tdap vaccination 04/09/14 [ ] GBS pending [ ] Contraception FOREST FIRE SPECIALIST SUPERVISOR - nights L&D The patient was sent to L&D for extended monitoring. tachycardia documented in this encounter Plan of Treatment Not on file documented as of this encounter Goals Goal Patient Goal Type Associated Problems Recent Progress Patient-Stated? Author HEMOGLOBIN A1C < 7.0 Result Component Type 2 diabetes mellitus ([facility]) 8.7(07/07/2015 5:05 EST) No Annmarie Vigil documented as of this encounter Visit Diagnoses Diagnosis Supervision of high-risk of elderly multigravida- Primary documented in this encounter Discontinued Medications Medication Sig Discontinue Reason Start Date End Da te terconazole (TERAZOL 3) [address] 1 Suppository vaginally daily. 04/09/2014 05/07/2014 documented as of this encounter Care Teams Supervisor Wool Shearing Relationship Specialty Start Date End Date Annette Sidhu APRN [address] [place] [phone] PCP - General 03/19/13 07/06/19 documented as of this encounter
--- OUTSIDE RECORDS SUMMARY | 2024-02-17 18:40 | XMS_ITS | Encounter Summary ---
Author Organization [facility] Address [address] [place] [address] Care Team Providers Care Hybrid Corn Breeder Name Role Phone Annette Sidhu APRN Primary Care Provider [phone] Reason for Visit * Reason Onset Date Comments Home Health 06/01/2014 Encounter Details Date Type Department Care Team (Late st Contact Info) Description 06/01/2014 Telephone [facility] Obstetrics & Midwifery - [address] [address] Cary Christensen, PRISCILA Home Health Social History [...] Encounter - Cary Christensen RN - 06/01/2014 5365 EST Call to willie Thomas RN with [facility] to set up daily dressing changes with dryguaze. Martha will contact patient and set up visits. Patient to return to [facility] office next week for evaluation. documented in this encounter Plan of Treatment Not on file documented as of this encounter Goals Goal Patient Goal Type Associated Problems Recent Progress Patient-Stated? Author HEMOGLOBIN A1C < 7.0 Result Component Type 2 diabetes mellitus ([facility]) 8.7(07/07/2015 5:05 EST) No Annmarie Vigil documented as of this encounter Visit Diagnoses Not on filedocumented in this encounter Care Teams Hybrid Corn Breeder Relationship Specialty Start Date End Date Annette Sidhu APRN [address] [place] [phone] PCP - General 03/19/13 07/06/19 documented as of this encounter
--- OUTSIDE RECORDS SUMMARY | 2024-02-17 18:40 | XMS_ITS | Encounter Summary ---
Author Organization [facility] Address [address] [place] [address] Care Team Providers Care County Tax Assessor Name Role Phone Annette Sidhu APRN Primary Care Provider [phone] Reason for Referral * (Routine) - Closed Specialty Diagnoses / Procedures Referred By Savannah ashton Referred To Contact Maria Eugenia Dan MD [address] [place] [address] Referral ID Status Reason Start Date Expiration Date V isits Requested Visits Authorized [id number] Closed Specialty Services Required 05/08/2014 1 1 Comments See your HIGH RISK paperhanger and painter in 1 week. Call for an appointment. * (Routine) - Closed Specialty Diagnoses / Procedures Referred By Savannah ashton Referred To Contact Maria Eugenia Dan MD [address] [place] [address] Referral ID Status Reason Start Date Expiration Date V isits Requested Visits Authorized [id number] Closed Specialty Services Required 05/08/2014 1 1 Question Answer Reason for recommendation: discharge follow up Reason for Visit * Reason Comments Non-stress Test Encounter Details Date Type Department Care Team (Late st Contact Info) Description 05/07/2014 11:04 EST - 05/08/2014 9:15 EST Hospital Encounter [facility] [address], [place] [id number] Haim Méndez MD [address] [facility], Level 4 [place] [id number] Kristi Leblanc MD [address] [facility] [place] [place] [address] Abnormal maternal glucose tolerance, antepartum [...] W ANTEPARTUM CONDITION OR COMPL[ICD-9-CM] V58.69 AFTERCARE CHIEF NURSE USE MEDICATN[ICD-9-CM] V58.67 LONG-TERM (CURRENT) USE OF [...] cuff w/ BP 100/40. All reported to Maira Eugenia Dan And Leidy Singh. Pt states [...] 140, moderate variability, no decels, no accels, [place]: quiescent FS 20 A/P: Guzman Jean is a 38 yo at 35w5d with CHTN and T2DM who is undergoing extended monitoring for FHT elevated baseline and intermittent decels, who is hypoglycemic and symptomatic. Cat 1 FHT. -Give orange juice -1/2 amp D50 -check serum glucose. Discussed with Dr. Todd Fisher M.D. PGY1 Pager [phone] * Oriana Brooks MD - 05/08/2014 0205 EST R2 OB Strip Review FHT: 140 baseline, moderate variability, no accels, no decels, Cat I tracing [place]: Flat Oriana Brooks MD 05/08/2014 2:05 * Mally Lewis RN - 05/08/2014 0110 EST 0105: Received [...] no accels, no decels, Cat I tracing [place]: Flat Oriana Brooks MD 05/07/2014 23:12 * [...] rebound tachycardia of 165-170 and minimal variability [place]: flat POC 185 A/P: Guzman Jean is [...] 1998,2007 times 2 ??? Hip arthroscopy 2012 Clearance Coordinator History Social History H/o PCOS History Substance [...] Type 2 diabetes mellitus ([facility]) 8.7(07/07/2015 5:05 [...] 70 - 100 mg/dl 05/08/2014 7:33 EST [facility] Health And Fitness Professor ID [id number] 05/08/2014 7:33 EST [facility] Comment:Test Performed by rsing Services BLOOD SPECIMEN / Unknown 05/08/2014 7:31 EST 05/08/2014 7:33 EST Kristi Leblanc MD CHEMISTRY & BLOOD GA S ORDERABLES [facility] [address] [place] [address] * (ABNORMAL) GLUCOSE, GLUCOMETER (05/08/2014 6:24 EST) Glucose, Fingerstick 173(H) 70 - 100 mg/dl 05/08/2014 6:25 EST [facility] Health And Fitness Professor ID [id number] 05/08/2014 6:25 EST [facility] Comment:Test Performed by [facility] Services BLOOD SPECIMEN / Unknown 05/08/2014 6:24 EST 05/08/2014 6:25 EST Kristi Leblanc MD CHEMISTRY & BLOOD GA S ORDERABLES Performing Organization Address [facility] Co de Phone Number [facility] [address] [place] [address] * (ABNORMAL) GLUCOSE, GLUCOMETER (05/08/2014 5:30 EST) Glucose, Fingerstick 171(H) 70 - 100 mg/dl 05/08/2014 5:32 EST [facility] Health And Fitness Professor ID [id number] 05/08/2014 5:32 EST [facility] Comment:Test Performed by [facility] BLOOD SPECIMEN / Unknown 05/08/2014 5:30 EST 05/08/2014 5:32 EST Kristi Leblanc MD CHEMISTRY & BLOOD GA S ORDERABLES Performing Organization Address City/[facility]/ZIP Co de Phone Number [facility] [address] [place] [address] * (ABNORMAL) GLUCOSE, GLUCOMETER (05/08/2014 4:24 EST) Glucose, Fingerstick 155(H) 70 - 100 mg/dl 05/08/2014 4:29 EST [facility] Health And Fitness Professor ID [id number] 05/08/2014 4:29 EST [facility] Comment:Test Performed by Nu rsing Services BLOOD SPECIMEN / Unknown 05/08/2014 4:24 EST 05/08/2014 4:29 EST Kristi Leblanc MD CHEMISTRY & BLOOD GA S ORDERABLES Performing Organization Address City/[facility]/ZIP Co de Phone Number [facility] [address] [place] [address] * (ABNORMAL) GLUCOSE, GLUCOMETER (05/08/2014 3:49 EST) Glucose, Fingerstick 181(H) 70 - 100 mg/dl 05/08/2014 3:51 EST [facility] Health And Fitness Professor ID [id number] 05/08/2014 3:51 EST [facility] Comment:Test Performed by Nu rsing Services BLOOD SPECIMEN / Unknown 05/08/2014 3:49 EST 05/08/2014 3:51 EST Kristi Leblanc MD CHEMISTRY & BLOOD GA S ORDERABLES Performing Organization Address City/[facility] Co de Phone Number [facility] [address] [place] [address] * (ABNORMAL) GLUCOSE, GLUCOMETER (05/08/2014 3:47 EST) Glucose, Fingerstick 175(H) 70 - 100 mg/dl 05/08/2014 3:51 EST [facility] Health And Fitness Professor ID [id number] 05/08/2014 3:51 EST [facility] Comment:Test Performed by Nu rsing Services BLOOD SPECIMEN / Unknown 05/08/2014 3:47 EST 05/08/2014 3:51 EST Kristi Leblanc MD CHEMISTRY & BLOOD GA S ORDERABLES [facility] [address] [place] [address] * GLUCOSE, SERUM (05/08/2014 3:40 EST) Glucose, Serum 87 70 - 100 mg/dl 05/08/2014 4:10 EST [facility] Comment: Slight hemolysis Results may be affected due to hemolysis. Blood specimen (specimen) BLOOD SPECIMEN / Unknown 05/08/2014 3:40 EST 05/08/2014 3:54 EST Dahiana Fisher MD CHEMISTRY & BLOOD G ORDERABLES Performing Organization Address [facility] Co de Phone Number [facility] [address] [place] [address] * (ABNORMAL) GLUCOSE, GLUCOMETER (05/08/2014 3:36 EST) Glucose, Fingerstick <20(LL) 70 - 100 mg/dl 05/08/2014 3:38 EST [facility] Health And Fitness Professor ID [id number] 05/08/2014 3:38 EST [facility] Comment:Test Performed by Nu rsing Services BLOOD SPECIMEN / Unknown 05/08/2014 3:36 EST 05/08/2014 3:38 EST Kristi Leblanc MD CHEMISTRY & BLOOD GA S ORDERABLES Performing Organization Address [facility] Co de Phone Number [facility] [address] [place] [address] * (ABNORMAL) GLUCOSE, GLUCOMETER (05/07/2014 20:44 EST) Glucose, Fingerstick 128(H) 70 - 100 mg/dl 05/07/2014 20:48 EST [facility] Health And Fitness Professor ID [id number] 05/07/2014 20:48 EST [facility] Comment:Test Performed by Nu rsing Services BLOOD SPECIMEN / Unknown 05/07/2014 20:44 EST 05/07/2014 20:48 EST Kristi Leblanc MD CHEMISTRY & BLOOD GA S ORDERABLES [facility] [address] [place] [address] * GLUCOSE, GLUCOMETER (05/07/2014 17:52 EST) Glucose, Fingerstick 77 70 - 100 mg/dl 05/07/2014 17:55 EST [facility] Health And Fitness Professor ID [id number] 05/07/2014 17:55 EST [facility] Comment:Test Performed by Nu rsing Services BLOOD SPECIMEN / Unknown 05/07/2014 17:52 EST 05/07/2014 17:55 EST Kristi Leblanc MD CHEMISTRY & BLOOD GA S ORDERABLES Performing Organization Address City/[facility]/ZIP Co de Phone Number [facility] [address] [place] [address] * GLUCOSE, GLUCOMETER (05/07/2014 15:42 EST) Glucose, Fingerstick 75 70 - 100 mg/dl 05/07/2014 15:45 EST [facility] Health And Fitness Professor ID [id number] 05/07/2014 15:45 EST [facility] Comment:Test Performed by Nu rsing Services BLOOD SPECIMEN / Unknown 05/07/2014 15:42 EST 05/07/2014 15:45 EST Kristi Leblanc MD CHEMISTRY & BLOOD GA S ORDERABLES Performing Organization Address City/[facility]/ZIP Co de Phone Number [facility] [address] [place] [address] * (ABNORMAL) GLUCOSE, GLUCOMETER (05/07/2014 13:46 EST) Glucose, Fingerstick 134(H) 70 - 100 mg/dl 05/07/2014 13:50 EST [facility] Health And Fitness Professor ID [id number] 05/07/2014 13:50 EST [facility] Comment:Test Performed by Nu rsing Services BLOOD SPECIMEN / Unknown 05/07/2014 13:46 EST 05/07/2014 13:50 EST Kristi Leblanc MD CHEMISTRY & BLOOD GA S ORDERABLES Performing Organization Address City/[facility]/ZIP Co de Phone Number [facility] [address] [place] [address] * BACTERIAL CULTURE, URINE (05/07/2014 12:39 EST) Result Less than 10,000 CFU/ml Usual urogenital joe. 05/08/2014 9:58 [facility] URINE / Unknown 05/07/2014 1 2:39 EST 05/07/2014 13:52 EST Kristi Leblanc MD MICROBIOLOGY - GENER AL ORDERABLES Performing Organization Address [facility] Co de Phone Number [facility] [address] [place] [address] * (ABNORMAL) URINE MICROSCOPIC (05/07/2014 12:39 EST) WBC, UA 1 to 5 0 - 5 /HPF 05/07/2014 13:05 [facility] RBC, UA 1 to 5 0 - 5 /HPF 05/07/2014 13:05 [facility] Squam Epithel, UA Frequent(A) None seen /HPF 05/07/2014 13:05 [facility] Renal Epithel, UA None seen None seen /HPF 05/07/2014 13:05 [facility] Bacteria, UA None seen None seen /HPF 05/07/2014 13:05 [facility] Crystals, UA None seen /HPF 05/07/2014 13:05 [facility] Hyaline Casts, UA None seen /LPF 05/07/2014 13:05 [facility] UA Comment Microscopic results 05/07/2014 13:05 [facility] Comment: are unreliable on urines unrefrig >2hrs or refrig >8hrs. Mucus, UA Present 05/07/2014 13:05 [facility] Additional Findings Few yeast seen 05/07/2014 13:05 [facility] URINE / Unknown 05/07/2014 1 2:39 EST 05/07/2014 12:44 EST Lilibeth Haines MD URINALYSIS ORDERABLE S Performing Organization Address City/[facility]/ZIP Co de Phone Number [facility] [address] [place] [address] * URINE CULTURE IF UA POSITIVE - NON POCT URINALYSIS ONLY (05/07/2014 12:39 EST) Culture if Indicated Culture indicated by urinalysis results. 05/07/2014 13:41 EST [facility] Urine specimen (specimen) TOPOGRAPHY UNKNOWN / Unknown 05/07/2014 12:39 EST 05/07/2014 12:44 EST Lilibeth Haines MD MICROBIOLOGY - GENER AL ORDERABLES Performing Organization Address [facility] Co de Phone Number [facility] [address] [place] [address] * (ABNORMAL) URINALYSIS (05/07/2014 12:39 EST) Color, UA Yellow 05/07/2014 13:05 [facility] Clarity, UA Hazy 05/07/2014 13:05 [facility] Glucose, UA 2+(A) Neg 05/07/2014 13:05 [facility] Bilirubin, UA Neg Neg 05/07/2014 13:05 [facility] Ketones, UA Neg Neg 05/07/2014 13:05 [facility] Specific [place], Urine 1.020 1.001 - 1.035 05/07/2014 13:05 [facility] Blood, UA Neg Neg 05/07/2014 13:05 [facility] pH, UA 6.0 4.6 - 8.0 05/07/2014 13:05 [facility] Protein, UA Neg Neg 05/07/2014 13:05 [facility] Urobilinogen, UA 0.2 0.2 - 1.0 E.U./dl 05/07/2014 13:05 [facility] Nitrite, UA Neg Neg 05/07/2014 13:05 [facility] Leuk Esterase 1+(A) Neg 05/07/2014 13:05 EST [facility] Urine specimen (specimen) URINE / Unknown 05/07/2014 12:39 EST 05/07/2014 12:44 EST Lilibeth Haines MD URINALYSIS ORDERABLE S Performing Organization Address [facility] Co de Phone Number [facility] [address] [place] [address] * BLOOD BANK SPECIMEN HOLD (05/07/2014 12:39 EST) Hold BB Spec will exp at 23:59, 3 days from collect date [facility] Blood specimen (specimen) 05/07/2014 12:39 EST Lilibeth Haines MD BLOOD BANK TESTS Performing Organization Address [facility] Co de Phone Number [facility] * HOLD SST (05/07/2014 12:35 EST) Hold SST Hold for further testing. Specimen will be held for 5 days. 05/07/2014 12:45 EST [facility] BLOOD SPECIMEN / Unknown 05/07/2014 12:35 EST 05/07/2014 12:45 EST Kristi Leblanc MD LAB INFO SERVICE AND SUPPORT & PHONE RESULT Performing Organization Address [facility] Co de Phone Number [facility] [address] [place] [address] * HOLD PURPLE TOP (05/07/2014 12:35 EST) Hold Purple Top EDTA for hematology will be discarded after 48 hours, differential not available after 12 hours. 05/07/2014 12:45 EST [facility] BLOOD SPECIMEN / Unknown 05/07/2014 12:35 EST 05/07/2014 12:45 EST Kristi Leblanc MD LAB INFO SERVICE AND SUPPORT & PHONE RESULT Performing Organization Address [facility] Co de Phone Number [facility] [address] [place] [address] * HOLD BLUE TOP (05/07/2014 12:35 EST) Hold Blue Top Sample for coagulation will be discarded after 4 hours 05/07/2014 13:10 EST [facility] BLOOD SPECIMEN / Unknown 05/07/2014 12:35 EST 05/07/2014 12:45 EST Kristi Leblanc MD LAB INFO SERVICE AND SUPPORT & PHONE RESULT [facility] [address] [place] [address] * (ABNORMAL) GLUCOSE, GLUCOMETER (05/07/2014 11:30 EST) Glucose, Fingerstick 185(H) 70 - 100 mg/dl 05/07/2014 11:32 EST [facility] Health And Fitness Professor ID [id number] 05/07/2014 11:32 EST [facility] Comment:Test Performed by Nu ing Services BLOOD SPECIMEN / Unknown 05/07/2014 11:30 EST 05/07/2014 11:32 EST Kristi Leblanc MD CHEMISTRY & BLOOD GA S ORDERABLES Performing Organization Address City/[facility]/ZIP Co de Phone Number [facility] [address] [place] [address] documented in this encounter Visit Diagnoses Diagnosis [...] Sugar, Routine 0342 (Given - Provid er: Mally Lewis RN) documented in this encounter Orders [...] 04/29 documented in this encounter Care Teams County Tax Assessor Relationship Specialty Start Date End Date Annette Sidhu, RECEPTION MANAGER [address] [place] [address] [phone] PCP - General 03/19/13 07/06/19 documented as of this encounter
--- OUTSIDE RECORDS SUMMARY | 2024-02-17 18:40 | XMS_ITS | Encounter Summary ---
Author Organization [facility] Address [address] [place] [address] Care Team Providers Care Mastercam Programmer Name Role Phone Annette Sidhu APRN Primary Care Provider [phone] Reason for Visit * Reason Onset Date Comments Wound Infection 05/31/2014 Encounter Details Date Type Department Care Team (Late st Contact Info) Description 05/31/2014 Telephone [facility] - [address] [address] Selvin Christie MD [address] [place] [address] Wound Infection Social History Tobacco [...] to be aware of scheduling appointment. Selvin Christie MD documented in this encounter Plan of Treatment Not on file documented as of this encounter Goals Goal Patient Goal Type Associated Problems Recent Progress Patient-Stated? Author HEMOGLOBIN A1C < 7.0 Result Component Type 2 diabetes mellitus ([facility]) 8.7(07/07/2015 5:05 EST) No Annmarie Vigil documented as of this encounter Visit Diagnoses Not on filedocumented in this encounter Care Teams Mastercam Programmer Relationship Specialty Start Date End Date Annette Sidhu APRN [address] [place] [phone] PCP - General 03/19/13 07/06/19 documented as of this encounter
--- OUTSIDE RECORDS SUMMARY | 2024-02-17 18:40 | XMS_ITS | Encounter Summary ---
Author Organization [facility] Address [address] [place] [address] Care Team Providers Care Staff Rn Name Role Phone Annette Sidhu APRN Primary Care Provider [phone] Reason for Visit * Reason Onset Date Comments Appointment Related 06/08/2014 Encounter Details Date Type Department Care Team (Late st Contact Info) Description 06/08/[address] [facility] Midwifery - [address] [address] Gisela Rodrigues MD [address] [place] [address], [address] [place] [address] Appointment Related Social History Tobacco [...] diabetes mellitus ([facility]) 8.7(07/07/2015 5:05 EST) No Annmarie Vigil documented as of this encounter Visit Diagnoses Not on filedocumented in this encounter Care Teams Staff Rn Relationship Specialty Start Date End Date Annette Sidhu APRN [address] [place] [phone] PCP - General 03/19/13 07/06/19 documented as of this encounter
--- OUTSIDE RECORDS SUMMARY | 2024-02-17 18:40 | XMS_ITS | Encounter Summary ---
Author Organization [facility] Address [address] [place] [address] Care Team Providers Care Wrinkle Chaser Name Role Phone Annette Sidhu APRN Primary Care Provider [phone] Encounter Details Date Type Department Care Team (Late st Contact Info) Description 06/18/2014 Documentation Visit [facility] & Midwifery - [address] [address] Cary Christensen RN Social History Tobacco Use [...] 1002 EST Call from PRISCILA Davalos at [facility] who is visiting [place] today [...] Type 2 diabetes mellitus ([facility]) 8.7(07/07/2015 5:05 EST) No Annmarie Vigil documented as of this encounter Visit Diagnoses Not on filedocumented in this encounter Care Teams Wrinkle Chaser Relationship Specialty Start Date End Date Annette Sidhu APRN [address] [place] [address] [phone] PCP - General 03/19/13 07/06/19 documented as of this encounter
--- OUTSIDE RECORDS SUMMARY | 2024-02-17 18:40 | XMS_ITS | Encounter Summary ---
Author Organization [facility] Address [address] [place] [address] Care Team Providers Care Warehouse Material Handler Name Role Phone Annette Sidhu APRN Primary Care Provider [phone] Encounter Details Date Type Department Care Team (Late st Contact Info) Description 05/24/2014 Documentation Visit [facility] Obstetrics & Midwifery - [address] [address] Cary Christensen RN Social History Tobacco Use [...] Notes * Cary Christensen, RN - 05/24/2014 2368 EST Short term disability paperwork completed and signed by Dr. Méndez. Faxed back to [facility] at with confirmation of receipt printed. Hard copy in folder to be scanned into [employer]. documented in this encounter Plan of Treatment Not on file documented as of this encounter Goals Goal Patient Goal Type Associated Problems Recent Progress Patient-Stated? Author HEMOGLOBIN A1C < 7.0 Result Component Type 2 diabetes mellitus ([facility]) 8.7(07/07/2015 5:05 EST) No Annmarie Vigil documented as of this encounter Visit Diagnoses Not on filedocumented in this encounter Care Teams Warehouse Material Handler Relationship Specialty Start Date End Date Annette Sidhu APRN [address] [place] [address] [phone] PCP - General 03/19/13 07/06/19 documented as of this encounter
--- OUTSIDE RECORDS SUMMARY | 2024-02-17 18:40 | XMS_ITS | Encounter Summary ---
Author Organization [facility] Address [address] [place] [address] Care Team Providers Care Chrome Polisher Name Role Phone Annette Sidhu APRN Primary Care Provider [phone] Encounter Details Date Type Department Care Team (Late st Contact Info) Description 04/30/2014 14:50 EST - 04/30/2014 23:59 [facility] Hospital En[facility] [phone] Haim Méndez MD [address] [place] [address], [address] [place] [phone] Discharge Disposition: Home or Self Care Social [...] 2 diabetes mellitus ([facility]) 8.7(07/07/2015 5:05 EST) No Annmarie Vigil documented as of this encounter Visit Diagnoses Not on filedocumented in this encounter Care Teams Chrome Polisher Relationship Specialty Start Date End Date Annette Sidhu APRN [address] [place] [phone] PCP - General 03/19/13 07/06/19 documented as of this encounter
--- OUTSIDE RECORDS SUMMARY | 2024-02-17 18:40 | XMS_ITS | Encounter Summary ---
Author Organization [facility] Address [address] [place] [address] Care Team Providers Care Crusher Assembler Name Role Phone Annette Sidhu APRN Primary Care Provider Reason for Visit * Reason Comments Routine Visit Encounter Details Date Type Department Care Team (Late st Contact Info) Description 04/30/2014 10:40 EST Routine [facility] Obstetrics & Midwifery - [address] [id number] Elke Stevenson MD [address] [place] [address], [address] [place] [address] [place]: [id number] Social History Tobacco [...] of RUQ pain, which she went to Section for the morning of 04/29/2014. Full w/u [...] 2 diabetes mellitus ([facility]) 8.7(07/07/2015 5:05 EST) No Annmarie Vigil documented as of this encounter Results * AST (04/30/2014 14:03 EST) AST 25 15 - 46 U/L 04/30/2014 15:15 EST [facility] Blood specimen (specimen) BLOOD SPECIMEN / Unknown 04/30/2014 14:03 EST 04/30/2014 14:29 EST Elke Stevenson MD CHEMISTRY & B LOOD GAS ORDERABLES Performing Organization Address City/[facility] Co de Phone Number [facility] [address] [place] [address] * ALT (04/30/2014 14:03 EST) ALT 27 <53 U/L 04/30/2014 15:15 EST [facility] Blood specimen (specimen) BLOOD SPECIMEN / Unknown 04/30/2014 14:03 EST 04/30/2014 14:29 EST Elke Stevenson MD CHEMISTRY & B LOOD GAS ORDERABLES Performing Organization Address City/[facility] Co de Phone Number [facility] [address] [place] [address] * (ABNORMAL) HEMAGRAM (04/30/2014 14:03 EST) WBC 17.07(H) 4.0 - 12.4 K/cmm 04/30/2014 14:42 EST [facility] RBC 4.25 3.86 - 5.04 M/cmm 04/30/2014 14:42 EST [facility] Hemoglobin 13.5 11.6 - 15.2 gm/dl 04/30/2014 14:42 [facility] HCT 39.9 34.9 - 44.4 % 04/30/2014 14:42 [facility] MCV 94 81 - 98 fl 04/30/2014 14:42 [facility] MCH 31.8 26.7 - 33.3 pg 04/30/2014 14:42 [facility] MCHC 33.8 32.1 - 35.9 gm/dl 04/30/2014 14:42 [facility] PLT 331(H) 141 - 320 K/cmm 04/30/2014 14:42 [facility] RDW-CV 12.9 11.7 - 14.6 % 04/30/2014 14:42 [facility] Blood specimen (specimen) BLOOD SPECIMEN / Unknown 04/30/2014 14:03 EST 04/30/2014 14:29 EST Elke Stevenson MD HEMATOLOGY & PF4 ORDERABLES Performing Organization Address City/[facility]/ZIP Co de Phone Number [facility] [address] [place] [address] * URIC ACID (04/30/2014 14:03 EST) Uric Acid 4.8 2.2 - 7.7 mg/dl 04/30/2014 15:15 [facility] Blood specimen (specimen) BLOOD SPECIMEN / Unknown 04/30/2014 14:03 EST 04/30/2014 14:29 EST Elke Stevenson MD CHEMISTRY & B LOOD GAS ORDERABLES [facility] [address] [place] [address] * CREATININE (04/30/2014 14:03 EST) Creatinine 0.58 0.52 - 1.04 mg/dl 04/30/2014 15:15 [facility] GFR, Calculated >60 >60 ml/min/1.7 3m2 04/30/2014 15:15 [facility] Blood specimen (specimen) BLOOD SPECIMEN / Unknown 04/30/2014 14:03 EST 04/30/2014 14:29 EST Elke Stevenson MD CHEMISTRY & B LOOD GAS ORDERABLES [facility] [address] [place] [address] documented in this encounter Visit Diagnoses Diagnosis Benign essential hypertension antepartum- Primary documented in this encounter Care Teams Crusher Assembler Relationship Specialty Start Date End Date Annette Sidhu, E[employer] S[employer] DIRECTOR [address] [place] [phone] PCP - General 03/19/13 07/06/19 documented as of this encounter
--- OUTSIDE RECORDS SUMMARY | 2024-02-17 18:40 | XMS_ITS | Encounter Summary ---
Author Organization [facility] Address [address] [place] [address] Care Team Providers Care Casino Change Attendant Name Role Phone Annette Sidhu APRN Primary Care Provider Encounter Details Date Type Department Care Team (Late st Contact Info) Description 04/30/2014 11:10 EST - 04/30/2014 13:59 [facility] Hospital Encounter [facility] [phone] Haim Méndez MD [address] [place] [address], [address] [place] [phone] Discharge Disposition: Home or Self Care Social [...] Component Type 2 diabetes mellitus ([facility]) 8.7(07/07/2015 5:05 EST) No Annmarie Vigil documented as of this encounter Visit Diagnoses Not on filedocumented in this encounter Care Teams Casino Change Attendant Relationship Specialty Start Date End Date Annette Sidhu APRN [address] [place] [phone] PCP - General 03/19/13 07/06/19 documented as of this encounter
--- OUTSIDE RECORDS SUMMARY | 2024-02-17 18:40 | XMS_ITS | Encounter Summary ---
Author Organization [facility] Address [address] [place] [address] Care Team Providers Care Family Practice Medical Doctor Name Role Phone Annette Sidhu APRN Primary Care Provider Encounter Details Date Type Department Care Team (Latest Contact Info) Description 10/25/2014 12:09 EDT - 10/25/2014 23:59 EDT Hospital Encounter [address] [address] [place] [address] [place] [address] Discharge Disposition: Auto Discharge Social [...] Type 2 diabetes mellitus ([facility]) 8.7(07/07/2015 5:05 EST) No Annmarie [...] 0 - 20 mm/hr 10/25/2014 20:56 EDT [facility] BLOOD SPECIMEN / Unknown 10/25/2014 20:43 EDT 10/25/2014 20:50 EDT Roland Coe DO HEMATOLOGY & PF4 ORD ERABLES Performing Organization Address City/[facility] Co de Phone Number [facility] [address] [place] [address] * HLA B27 SCREEN, DNA (10/25/2014 20:43 EDT) HLA B27 Screen DNA HLA B27 not identified 10/28/2014 12:47 EDT [facility] Comment:Tested by PCR-RSSO BLOOD SPECIMEN / Unknown 10/25/2014 20:43 EDT 10/25/2014 20:50 EDT Roland Coe DO TISSUE TYPING ORDERA BLES Performing Organization Address City/[facility]/ZIP Co de Phone Number [facility] [address] [place] [phone] * SI JOINTS 3 OR MORE VIEWS [...] filedocumented in this encounter Care Teams Family Practice Medical Doctor Relationship Specialty Start Date End Date Annette Sidhu APRN [address] [place] [phone] PCP - General 03/19/13 07/06/19 documented as of this encounter
--- OUTSIDE RECORDS SUMMARY | 2024-02-17 18:40 | XMS_ITS | Encounter Summary ---
Author Organization [facility] Address [address] [place] [address] Care Team Providers Care Digital Imaging Specialist Name Role Phone Annette Sidhu APRN Primary Care Provider [phone] Encounter Details Date Type Department Care Team (Latest Contact Info) Description 04/30/2014 14:00 EST - 04/30/2014 23:59 [facility] Hospital Encounter [address] [address] Unknown, Provider, Discharge Disposition: Home or Self [...] 2 diabetes mellitus ([facility]) 8.7(07/07/2015 5:05 EST) Annmarie Lopez documented as of this encounter Visit Diagnoses Not on filedocumented in this encounter Care Teams Digital Imaging Specialist Relationship Specialty Start Date End Date Annette Sidhu, DISTRIBUTION CENTER SUPERVISOR [address] [place] [phone] PCP - General 03/19/13 07/06/19 documented as of this encounter
--- OUTSIDE RECORDS SUMMARY | 2024-02-17 18:40 | XMS_ITS | Encounter Summary ---
Author Organization [facility] Address [address] [place] [address] Care Team Providers Care Loin Trimmer Name Role Phone Bhargav Padron APRN Primary Care Provider [phone] Reason for Referral * (Routine) - Closed Specialty Diagnoses / Procedures Referred By Savannah ashton Referred To Contact Anna Corley MD [address] [address] Referral ID Status Reason Start Date Expiration Date V isits Requested Visits Authorized [id number] Closed Specialty Services Required 05/16/2014 1 1 Reason for Visit * Reason Comments Non-stress Test Encounter Details Date Type Department Care Team (Late st Contact Info) Description 05/12/2014 4:55 EST - 05/16/2014 18:00 EST Hospital Encounter [facility] Mother/Baby [address] [place] [address] Kristi Leblanc MD [address] [place] [address] Routine history and physical examination [...] Summary 1 Patient Stamp Box Department of [facility] MATERNAL DISCHARGE SUMMARY . . Maternal Name: [...] Summary 2 Patient Stamp Box Department of [facility] MATERNAL DISCHARGE SUMMARY . . DELIVERY INFORMATION [...] for each Problem: Contraception discussed, [facility]ldiscuss at [facility]. Pt verbalized understanding of S/Sx [...] 10 at meals and had difficult to graphics specialist control. She reports that her glucoses can [...] 10 at meals and had difficult to graphics specialist control. She reports that her glucoses can [...] Mónica Dominguez MD 05/16/2014 9:47 * Svitlana Singh MD - 05/16/2014 0839 EST Postoperative Progress [...] hypoglycemia. Current Living Arrangements: Michael live in [place]; Hilda has two other children who are 15 and 6 yo. Randal also has children from a previous relationship. Current Social, Health Care and Community Supports: This couple reports some support from family and friends. Covered by [place] Medicaid and receiving WIC. Mom works here at [employer]. Identified Case Management/Social Work Needs and Issues [...] Randal. Will continue to follow. MARIEL Salinas #[id number] * Kristi Leblanc MD - 05/14/2014 0639 [...] Mrs. Crowley's care. Ana Pacheco, MS- Pager [phone] 05/13/2014 8:35 * Khalida Quiñones MD - [...] in AM *: will start pumping, clinical operations consultant *Chronic HTN: labetolol, BP NL *T2DM: [...] 150, mod variability, no accels, intermittent variables [place]: now q1.5-2 A/P: Hlida Crowley is a 38 y.o. @ 36w2d [...] mg/dl Ana Pacheco MS- IV Pager # [phone] 05/12/2014 12:00 Iraida Quezada (Att) - 05/12/2014 [...] testing. 1 hour GTT T2DM. Aneuploidy Testing [place] negative. CF Testing Not done. Ultrasound Date [...] 1998,2008 times 2 ??? 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 - Will check FS q 2hrs [...] Patient plans RLTCS/BTL--will discuss delivery timing among [facility] division this AM. Iraida Lerner MD documented in this encounter Procedure Notes * Khalida Quiñones MD - 05/12/2014 3793 EST Delivery Summary 1 Patient Stamp Box Department of [facility] DELIVERY SUMMARY . . Maternal Name: Hilda [...] Resident 1: Lilibeth Ontiveros Provider: Khalida Quiñones [employer] Staff/CNM Signature: Lilibeth Ontiveros 05/12/2014 @ 8183 Attending attestation: I was present during the [...] 10 at meals and had difficult to graphics specialist control. She reports that her glucoses can [...] be divergent. Can follow up in the [facility] ([facility]) or with her usual team. Recommend alsoa 1600 calorie plan with carbs at meals of no more than 50 gms. Recommendations: 1) Can d/c on Metformin 2) F/up as outpatient with usual team or [facility] in 3-6 wks. 3. If not at [...] 10 at meals and had difficult to graphics specialist control. She reports that her glucoses can [...] good control. Can follow up in the [facility] ([facility]) or with her usual team. Recommend alsoa 1600 calorie plan with carbs at meals of no more than 50 gms. Recommendations: 1) Can d/c on Metformin 2) F/up as outpatient with usual team or [facility] in 3-6 wks. ). If not at goal on Metformin alone, could consider addition of Sitagliptin or Canagliflozin to avoid lows that could occur on sulfonylureas (but these agents are more expensive). Mónica Dominguez MD 05/12/2014 12:34 documented in this encounter Nursing Notes * LEATHER FITTER, SCAN 2 - 05/19/2014 0359 EST documented in this encounter OR Notes * OR Surgeon - Khalida Quiñones MD - 05/13/2014 8570 EST OPERATIVE REPORT SERVICE DATE: 05/12/2014 SURGEON: Khalida Quiñones MD PLACING JUDGE: Lilibeth Ontiveros MD PREOPERATIVE DIAGNOSIS: 1. Intrauterine [...] of the uterus. This wasrepaired with multiple ymhlsl-nj-sxdhpl of 0 chromic. Attention was then turned [...] ofthe rectus muscles on the left. Several eftnjc-nh-etisuf were placed, however, oozing continued. Pressure was [...] COMPLICATIONS: None. CONDITION: Stable. DISPOSITION: M7 to [facility] 5. Unless otherwise noted, there were no complications, no blood loss, no cultures obtained, no specimens removed, and no drains retained. Attending attestation: I was present during the penaloza and critical portions of the procedure and agree with the resident's/fellow's note. Khalida Quiñones MD 05/14/2014 12:02 10 33 AM / Lilibeth Ontiveros MD cn Confirmation: [id number] Dictation ID: [id number] * Anesthesia Procedure Notes - LEATHER FITTERIDANIA 2 - 05/12/2014 1015 EST documented in this encounter Miscellaneous Notes * Plan of Care - Harshil Olvera RN - 05/16/2014 1806 EST Post- Shift Note Maternal: Admit Date: 05/12/2014 Hospital Day: LOS: 4 days Date of Delivery: Information for the patient's : Cruz Crowley [[id number]] 05/12/2014 Time of Delivery: Information for the patient's : Cruz Crowley [[id number]] 0832 Type of Delivery: repeat section Rhogam Administration: Given 05/13/13 Gestation (weeks): Information for the patient's : Cruz Crowley [[id number]] 36 06/05 Hepatitis B: Lab Results Component [...] Comments: Baby in NICU for hypoglycemia. 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 Pt on meds (labetelol) for chronic HTN.As well Seroquel, flexeril, neurontin, metformin, and insulin. Pt with fibromyalgia and previous psych issues x2 suicide attempts with insulin. FS are Q ac and HS. Pain has been controlled with meds as ordered. 2222-0987: Ready for discharge to home. AVS handed in and discharge education completed. Harshil Olvera RN 05/16/2014 * Plan of Care - Talat Laws RN - 05/16/2014 0564 EST Problem: PAIN Goal: Patient???s pain/discomfort is [...] Care - Harshil Olvera RN - 05/15/2014 8627 EST Post- Shift Note Maternal: Admit Date: 05/12/2014 Hospital Day: LOS: 3 days Date of Delivery: Information for the patient's : Cruz Crowley [[id number]] 05/12/2014 Time of Delivery: Information for the patient's : Cruz Crowley [[id number]] 0832 Type of Delivery: repeat section Rhogam Administration: Given 05/13/13 Gestation (weeks): Information for the patient's : Cruz Crowley [[id number]] 36 06/05 Hepatitis B: Lab Results Component [...] Comments: Baby in NICU for hypoglycemia. 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 Pt on meds (labetelol) for chronic HTN.As well Seroquel, flexeril, neurontin, metformin, and insulin. Pt with fibromyalgia and previous psych issues x2 suicide attempts with insulin. FS are Q ac and HS. Pain has been controlled with meds as ordered. 7403-0209: VSS, meds given @ 2100- see mar. [...] Information for the patient's : Cruz Crowley [[id number]] 05/12/2014 Time of Delivery: Information for the patient's : Cruz Crowley [[id number]] 0832 Type of Delivery: repeat section Rhogam Administration: Given 05/13/13 Gestation (weeks): Information for the patient's : Cruz Crowley [[id number]] 36 06/05 Hepatitis B: Lab Results Component [...] 5Comments: Baby in NICU for hypoglycemia. 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 Drinking and eating well Pt [...] Information for the patient's : Cruz Crowley [[id number]] 05/12/2014 Time of Delivery: Information for the patient's : Cruz Crowley [[id number]] 0832 Type of Delivery: repeat section Rhogam Administration: Given 05/13/13 Gestation (weeks): Information for the patient's : Cruz Crowley [[id number]] 36 06/05 Hepatitis B: Lab Results Component [...] Comments: Baby in NICU for hypoglycemia. 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 Drinking and eating well Pt [...] Care - Harshil Olvera RN - 05/14/2014 7459 EST Post- Shift Note Maternal: Admit Date: 05/12/2014 Hospital Day: LOS: 2 days Date of Delivery: Information for the patient's : Cruz Crowley [[id number]] 05/12/2014 Time of Delivery: Information for the patient's : Cruz Crowley [[id number]] 0832 Type of Delivery: repeat section Rhogam Administration: Given 05/13/13 Gestation (weeks): Information for the patient's : Cruz Crowley [[id number]] 36 2/7 Hepatitis B: Lab Results Component [...] Comments: Baby in NICU for hypoglycemia. 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 Drinking and eating well Pt [...] Information for the patient's : Cruz Crowley [[id number]] 05/12/2014 Time of Delivery: Information for the patient's : Cruz Crowley [[id number]] 0832 Type of Delivery: repeat section Rhogam Administration: Given 05/13/13 Gestation (weeks): Information for the patient's : Cruz Crowley [[id number]] 36 06/05 Hepatitis B: Lab Results Component [...] Comments: Baby in NICU for hypoglycemia. 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 Drinking and eating well Pt [...] Information for the patient's : Cruz Crowley [[id number]] 05/12/2014 Time of Delivery: Information for the patient's : Cruz Crowley [[id number]] 0832 Type of Delivery: repeat section Rhogam Administration: Given 05/13/13 Gestation (weeks): Information for the patient's : Cruz Crowley [[id number]] 36 2/7 Hepatitis B: Lab Results Component [...] Comments: Baby in NICU for hypoglycemia. 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 Drinking and eating well Pt [...] 6 mg R: Pain controlled well. 07/06. 8397-5106: Routine pp c/s care ,up & voiding [...] Care - Steph Chavez RN - 05/13/2014 1809 EST Post- Shift Note Maternal: Admit Date: 05/12/2014 Hospital Day: LOS: 1 day Date of Delivery: Information for the patient's : Ted Ojtilaeber [[id number]] 05/12/2014 Time of Delivery: Information for the patient's : [place], Cruz [[id number]] 0832 Type of Delivery: repeat section Rhogam Administration: Given 05/13/13 Gestation (weeks): Information for the patient's : Ted, Cruz [[id number]] 36 06/05 Hepatitis B: Lab Results Component [...] Comments: Baby in NICU for hypoglycemia. 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 Drinking and eating well Pt [...] Information for the patient's : Ted Ojtilaeber [[id number]] 05/12/2014 Time of Delivery: Information for the patient's : TedCruz [[id number]] 0832 Type of Delivery: repeat section Rhogam Administration: Not given - order in chart Gestation (weeks): Information for the patient's : [place] [[id number]] 36 06/05 Hepatitis B: Lab Results Component [...] Comments: Baby in NICU for hypoglycemia. 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 Drinking and eating well Pt [...] Information for the patient's : Cruz Crowley [[id number]] 05/12/2014 Time of Delivery: Information for the patient's : Cruz Crowley [[id number]] 0832 Type of Delivery: repeat section Rhogam Administration: Not given - order in chart Gestation (weeks): Information for the patient's : Cruz Crowley [[id number]] 36 06/05 Hepatitis B: Lab Results Component [...] d/c'd - patient due to void at 9995-9797 Pain Medications: Given this shift - see MAR Feeding: breast-pumping did not want to pump overnight. Feeding assistance: Independent Special Social Circumstances: Discharge Education:Education initiated Certificate: Not completed Comments: Baby in NICU for hypoglycemia, initiated pumping on days/travis but pt did not wish to pump overnight. 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 Discussed goals with number of times to baby in 24 hours. Up OOB independently and staton has been removed. No void yet. DTV at 4989-7151. Drinking and eating well. HS FS was [...] Care - Tea Osuna RN - 05/13/2014 0540 EST Problem: PAIN Goal: Patient???s pain/discomfort is [...] Care - Harshil Olvera RN - 05/12/2014 5422 EST Problem: PAIN Goal: Patient???s pain/discomfort is [...] Information for the patient's : Cruz Crowley [[id number]] 05/12/2014 Time of Delivery: Information for the patient's : Cruz Crowley [[id number]] 0832 Type of Delivery: repeat section Rhogam Administration: Not given - order in chart Gestation (weeks): Information for the patient's : Cruz Crowley [[id number]] 36 06/05 Hepatitis B: Lab Results Component [...] notify HO of amount. Data: Action: Response: Lily Fang RN 05/12/2014 15:17 * Plan of Care - Lily Fang RN - 05/12/2014 1448 EST Problem: CARE Goal: Urine Output Is 30 ml/hour Or More Urinary Catheter is draining yellow urine 30 ML/hour or more. Outcome: Not Met This Shift D: Staton catheter draining alyse colored urine. Last emptied at 0950 for 125cc. Emptied at 1415 [id number], less than 30cc/hr. LR infusing at 75cc/hr [...] Note Date: 05/12/2014 Attending: Khalida Quiñones MD Radio Interference Investigator: Lilibeth Ontiveros MD Pre-op diagnosis: 1. IUP [...] Date: 05/12/2014 Age: 38 y.o. GA: 36w2d Residential Substance Abuse Counselor: Kristi Leblanc MD Obstetric History: 38 yo [...] Type 2 diabetes mellitus ([facility]) 8.7(07/07/2015 5:05 EST) No Annmarie Vigil [...] EST) 05/20/2014 13:5 9 EST Scan 2 Felt Hat Pouncing Operator Hand LAB INFO SERVICE AN D SUPPORT & PHONE RESULT * (ABNORMAL) GLUCOSE, GLUCOMETER (05/16/2014 13:08 EST) Glucose, Fingerstick 126(H) 70 - 100 mg/dl 05/16/2014 13:09 EST [facility] Communication Clerk ID [id number] 05/16/2014 13:09 EST [facility] Comment:Test Performed by Nu ing Services BLOOD SPECIMEN / Unknown 05/16/2014 13:08 EST 05/16/2014 13:09 EST Kristi Leblanc MD CHEMISTRY & BLOOD GA S ORDERABLES Performing Organization Address [facility]/ZIP Co de Phone Number [facility] [address] [place] [address] * (ABNORMAL) GLUCOSE, GLUCOMETER (05/16/2014 7:42 EST) Glucose, Fingerstick 238(H) 70 - 100 mg/dl 05/16/2014 7:43 EST [facility] Communication Clerk ID [id number] 05/16/2014 7:43 EST [facility] Comment:Test Performed by Nu rsing Services BLOOD SPECIMEN / Unknown 05/16/2014 7:42 EST 05/16/2014 7:43 EST Kristi Leblanc MD CHEMISTRY & BLOOD GA S ORDERABLES Performing Organization Address [facility] Co de Phone Number [facility] [address] [place] [address] * (ABNORMAL) GLUCOSE, GLUCOMETER (05/16/2014 1:01 EST) Glucose, Fingerstick 171(H) 70 - 100 mg/dl 05/16/2014 1:03 EST [facility] Communication Clerk ID [id number] 05/16/2014 1:03 EST [facility] Comment:Test Performed by rsing Services BLOOD SPECIMEN / Unknown 05/16/2014 1:01 EST 05/16/2014 1:03 EST Kristi Leblanc MD CHEMISTRY & BLOOD GA S ORDERABLES Performing Organization Address [facility]/ZIP Co de Phone Number [facility] [address] [place] [address] * (ABNORMAL) GLUCOSE, GLUCOMETER (05/15/2014 19:13 EST) Glucose, Fingerstick 115(H) 70 - 100 mg/dl 05/15/2014 19:18 EST [facility] Communication Clerk ID [id number] 05/15/2014 19:18 EST [facility] Comment:Test Performed by rsing Services BLOOD SPECIMEN / Unknown 05/15/2014 19:13 EST 05/15/2014 19:18 EST Kristi Leblanc MD CHEMISTRY & BLOOD GA S ORDERABLES Performing Organization Address [facility] Co de Phone Number [facility] [address] [place] [address] * (ABNORMAL) GLUCOSE, GLUCOMETER (05/15/2014 12:54 EST) Glucose, Fingerstick 149(H) 70 - 100 mg/dl 05/15/2014 12:57 EST [facility] Communication Clerk ID [id number] 05/15/2014 12:57 EST [facility] Comment:Test Performed by Nu rsing Services BLOOD SPECIMEN / Unknown 05/15/2014 12:54 EST 05/15/2014 12:57 EST Kristi Leblanc MD CHEMISTRY & BLOOD GA S ORDERABLES Performing Organization Address [facility] Co de Phone Number [facility] [address] [place] [address] * (ABNORMAL) GLUCOSE, GLUCOMETER (05/15/2014 6:24 EST) Glucose, Fingerstick 218(H) 70 - 100 mg/dl 05/15/2014 6:26 EST [facility] Communication Clerk ID [id number] 05/15/2014 6:26 EST [facility] Comment:Test Performed by Nu rsing Services BLOOD SPECIMEN / Unknown 05/15/2014 6:24 EST 05/15/2014 6:26 EST Kristi Leblanc MD CHEMISTRY & BLOOD GA S ORDERABLES Performing Organization Address City/[facility]/ZIP Co de Phone Number [facility] [address] [place] [address] * (ABNORMAL) GLUCOSE, GLUCOMETER (05/15/2014 0:00 EST) Glucose, Fingerstick 201(H) 70 - 100 mg/dl 05/15/2014 0:02 EST [facility] Communication Clerk ID [id number] 05/15/2014 0:02 EST [facility] Comment:Test Performed by Nu rsing Services BLOOD SPECIMEN / Unknown 05/15/2014 05/15/2014 0:02 EST Kristi Leblanc MD CHEMISTRY & BLOOD GA S ORDERABLES Performing Organization Address [facility] Co de Phone Number [facility] [address] [place] [address] * (ABNORMAL) GLUCOSE, GLUCOMETER (05/14/2014 21:34 EST) Glucose, Fingerstick 148(H) 70 - 100 mg/dl 05/14/2014 21:57 EST [facility] Communication Clerk ID [id number] 05/14/2014 21:57 EST [facility] Comment:Test Performed by [facility] BLOOD SPECIMEN / Unknown 05/14/2014 21:34 EST 05/14/2014 21:57 EST Kristi Leblanc MD CHEMISTRY & BLOOD GA S ORDERABLES Performing Organization Address [facility] Co de Phone Number [facility] [address] [place] [address] * (ABNORMAL) GLUCOSE, GLUCOMETER (05/14/2014 13:56 EST) Glucose, Fingerstick 125(H) 70 - 100 mg/dl 05/14/2014 14:01 EST [facility] Communication Clerk ID [id number] 05/14/2014 14:01 EST [facility] Comment:Test Performed by [facility] BLOOD SPECIMEN / Unknown 05/14/2014 13:56 EST 05/14/2014 14:01 EST Kristi Leblanc MD CHEMISTRY & BLOOD GA S ORDERABLES Performing Organization Address [facility]/ZIP Co de Phone Number [facility] [address] [place] [address] * (ABNORMAL) GLUCOSE, GLUCOMETER (05/14/2014 6:46 EST) Glucose, Fingerstick 202(H) 70 - 100 mg/dl 05/14/2014 7:00 EST [facility] Communication Clerk ID [id number] 05/14/2014 7:00 EST [facility] Comment:Test Performed by Nu rsing Services BLOOD SPECIMEN / Unknown 05/14/2014 6:46 EST 05/14/2014 7:00 EST Kristi Leblanc MD CHEMISTRY & BLOOD GA S ORDERABLES Performing Organization Address City/[facility]/ZIP Co de Phone Number [facility] [address] [place] [address] * (ABNORMAL) GLUCOSE, GLUCOMETER (05/14/2014 0:16 EST) Glucose, Fingerstick 259(H) 70 - 100 mg/dl 05/14/2014 0:28 EST [facility] Communication Clerk ID [id number] 05/14/2014 0:28 EST [facility] Comment:Test Performed by [facility] BLOOD SPECIMEN / Unknown 05/14/2014 0:16 EST 05/14/2014 0:28 EST Kristi Leblanc MD CHEMISTRY & BLOOD GA S ORDERABLES Performing Organization Address City/[facility]/ZIP Co de Phone Number [facility] [address] [place] [address] * (ABNORMAL) GLUCOSE, GLUCOMETER (05/13/2014 21:40 EST) Glucose, Fingerstick 157(H) 70 - 100 mg/dl 05/13/2014 21:53 EST [facility] Communication Clerk ID [id number] 05/13/2014 21:53 EST [facility] Comment:Test Performed by rsing Services BLOOD SPECIMEN / Unknown 05/13/2014 21:40 EST 05/13/2014 21:53 EST Kristi Leblanc MD CHEMISTRY & BLOOD GA S ORDERABLES Performing Organization Address City/[facility]/ZIP Co de Phone Number [facility] [address] [place] [address] * (ABNORMAL) GLUCOSE, GLUCOMETER (05/13/2014 13:01 EST) Glucose, Fingerstick 219(H) 70 - 100 mg/dl 05/13/2014 13:03 [facility] Communication Clerk ID [id number] 05/13/2014 13:03 [facility] Comment:Test Performed by Nu biankaing Services BLOOD SPECIMEN / Unknown 05/13/2014 13:01 EST 05/13/2014 13:03 EST Kristi Leblanc MD CHEMISTRY & BLOOD GA S ORDERABLES Performing Organization Address City/State/[facility] Co de Phone Number [facility] [address] [place] [address] * (ABNORMAL) HEMAGRAM (05/13/2014 7:21 EST) WBC 19.21(H) 4.0 - 12.4 K/cmm 05/13/2014 7:57 [facility] RBC 3.79(L) 3.86 - 5.04 M/cmm 05/13/2014 7:57 [facility] Hemoglobin 12.1 11.6 - 15.2 gm/dl 05/13/2014 7:57 [facility] HCT 35.2 34.9 - 44.4 % 05/13/2014 7:57 [facility] MCV 93 81 - 98 fl 05/13/2014 7:57 [facility] MCH 31.8 26.7 - 33.3 pg 05/13/2014 7:57 [facility] MCHC 34.2 32.1 - 35.9 gm/dl 05/13/2014 7:57 [facility] RDW-CV 13.0 11.7 - 14.6 % 05/13/2014 7:57 [facility] RDW-SD 43.3 37.6 - 50.3 fl 05/13/2014 7:57 [facility] PLT 295 141 - 320 K/cmm 05/13/2014 7:57 [facility] MPV 8.6 7.5 - 11.2 fl 05/13/2014 7:57 [facility] Blood specimen (specimen) BLOOD SPECIMEN / Unknown 05/13/2014 7:21 EST 05/13/2014 7:39 EST Lilibeth Ontiveros MD HEMATOLOGY & PF4 ORD ERABLES Performing Organization Address [facility] Co de Phone Number [facility] [address] [place] [address] * (ABNORMAL) GLUCOSE, GLUCOMETER (05/13/2014 7:12 EST) Glucose, Fingerstick 150(H) 70 - 100 mg/dl 05/13/2014 8:26 EST [facility] Communication Clerk ID [id number] 05/13/2014 8:26 EST [facility] Comment:Test Performed by Nu rsing Services BLOOD SPECIMEN / Unknown 05/13/2014 7:12 EST 05/13/2014 8:26 EST Kristi Leblanc MD CHEMISTRY & BLOOD GA S ORDERABLES Performing Organization Address [facility] Co de Phone Number [facility] [address] [place] [address] * (ABNORMAL) GLUCOSE, GLUCOMETER (05/12/2014 23:49 EST) Glucose, Fingerstick 170(H) 70 - 100 mg/dl 05/12/2014 23:50 EST [facility] Communication Clerk ID [id number] 05/12/2014 23:50 EST [facility] Comment:Test Performed by [facility] BLOOD SPECIMEN / Unknown 05/12/2014 23:49 EST 05/12/2014 23:50 EST Kristi Leblanc MD CHEMISTRY & BLOOD GA S ORDERABLES Performing Organization Address [facility] Co de Phone Number [facility] [address] [place] [address] * (ABNORMAL) GLUCOSE, GLUCOMETER (05/12/2014 20:53 EST) Glucose, Fingerstick 148(H) 70 - 100 mg/dl 05/12/2014 20:55 EST [facility] Communication Clerk ID [id number] 05/12/2014 20:55 EST [facility] Comment:Test Performed by [facility] BLOOD SPECIMEN / Unknown 05/12/2014 20:53 EST 05/12/2014 20:55 EST Kristi Leblanc MD CHEMISTRY & BLOOD GA S ORDERABLES [facility] [address] [place] [address] * SURGICAL PATHOLOGY (05/12/2014 19:50 EST) Pathology Report: SURGICAL PATHOLOGY REPORT Reports generated via electronic interface contain original data; however they are lacking the format of the original report. Caution should be taken when reading/interpret ing unformatted reports. Name: ? HILDA CROWLEY ? Accession #: ? [id number] ? : ? 1975 (Age: 38) ??F ? Collect Date: ? 05/12/2014 ? Location: ? SB05 ? Receive Date: ? 05/12/2014 ? Provider: KRISTI LEBLANC MD Copy to: BHAGRAV ONTIVEROS MD ? Final Pathologic Diagnosis: A. [...] 5% of the overall placental disc. ? Animal Damage Control Agent sections are submitted as follows: BLOCK PENALOZA [...] ??Sectioning reveals a central pinpoint lumen. ??Two software support representative cross sections are submitted as B1. C. ?Received in normal saline labelled with proper patient identification (initials W, J) and segment of left fallopian tube is a tubular structure (1.8 cm in length and 0.6 cm in diameter). ??The serosal surface is pink-white and smooth. ??Sectioning reveals a central pinpoint lumen. ??Two software support representative cross sections are submitted as C1. [place] Jaimes 05/13/2014 09:09 AM End of Report [facility] 05/12/2014 19:5 0 EST 05/12/2014 19:50 EST Kristi Leblanc MD PATHOLOGY ORDERABLES Performing Organization Address [facility] Co de Phone Number [facility] [address] [place] [address] * (ABNORMAL) GLUCOSE, GLUCOMETER (05/12/2014 13:26 EST) Glucose, Fingerstick 104(H) 70 - 100 mg/dl 05/12/2014 13:30 EST [facility] Communication Clerk ID [id number] 05/12/2014 13:30 EST [facility] Comment:Test Performed by [facility] BLOOD SPECIMEN / Unknown 05/12/2014 13:26 EST 05/12/2014 13:30 EST Kristi Leblanc MD CHEMISTRY & BLOOD GA S ORDERABLES Performing Organization Address [facility]/ZIP Co de Phone Number [facility] [address] [place] [address] * POST RH IMMUNE GLOBULIN ( SCREEN TEST AND RHIG) (05/12/2014 12:40 EST) Screen Test NEGATIVE [facility] Derivative Code Rh Immune Globulin 300 ug [facility] Lot Number [id number] [facility] Unit Status Transfuse [facility] Blood specimen (specimen) 05/12/2014 12:40 EST Lilibeth Ontiveros MD BLOOD BANK TESTS [facility] * (ABNORMAL) GLUCOSE, GLUCOMETER (05/12/2014 11:12 EST) Glucose, Fingerstick 143(H) 70 - 100 mg/dl 05/12/2014 11:14 EST [facility] Communication Clerk ID [id number] 05/12/2014 11:14 [facility] Comment:Test Performed by [facility] BLOOD SPECIMEN / Unknown 05/12/2014 11:12 EST 05/12/2014 11:14 EST Kristi Leblanc MD CHEMISTRY & BLOOD GA S ORDERABLES [facility] [address] [place] [address] * (ABNORMAL) HEMAGRAM (05/12/2014 8:40 EST) WBC 18.81(H) 4.0 - 12.4 K/cmm 05/12/2014 9:00 [facility] RBC 3.98 3.86 - 5.04 M/cmm 05/12/2014 9:00 [facility] Hemoglobin 12.6 11.6 - 15.2 gm/dl 05/12/2014 9:00 [facility] HCT 37.0 34.9 - 44.4 % 05/12/2014 9:00 [facility] MCV 93 81 - 98 fl 05/12/2014 9:00 [facility] MCH 31.6 26.7 - 33.3 pg 05/12/2014 9:00 [facility] MCHC 34.1 32.1 - 35.9 gm/dl 05/12/2014 9:00 [facility] RDW-CV 13.0 11.7 - 14.6 % 05/12/2014 9:00 [facility] RDW-SD 42.0 37.6 - 50.3 fl 05/12/2014 9:00 [facility] PLT 291 141 - 320 K/cmm 05/12/2014 9:00 [facility] MPV 8.4 7.5 - 11.2 fl 05/12/2014 9:00 [facility] Blood specimen (specimen) BLOOD SPECIMEN / Unknown 05/12/2014 8:40 EST 05/12/2014 8:56 EST Abbe Bryan MD HEMATOLOGY & PF4 ORD ERABLES [facility] [address] [place] [address] * (ABNORMAL) BLOOD GASES, CORD VENOUS (05/12/2014 8:36 EST) pH, Cord blood jesenia 7.25 7.25 - 7.45 05/12/2014 8:56 [facility] PCO2, Cord blood 58 mmHg 05/12/2014 8:56 [facility] PO2, Cord bld jesenia 20 17 - 41 mmHg 05/12/2014 8:56 [facility] tCO2, Cord blood 26(H) 14 - 22 mEq/L 05/12/2014 8:56 [facility] Base Deficit 3.7 05/12/2014 8:56 [facility] BLOOD SPECIMEN / Unknown 05/12/2014 8:36 EST 05/12/2014 8:45 EST Khalida Quiñones MD GEN LAB UNIT COLLECT ORDERABLES [facility] [address] [place] [address] * (ABNORMAL) BLOOD GASES, CORD ARTERIAL (05/12/2014 8:35 EST) pH, Cord blood art 7.16(L) 7.18 - 7.38 05/12/2014 9:06 [facility] PCO2, Cord blood 79 mmHg 05/12/2014 9:06 [facility] PO2, Cord bld art <10 6 - 30 mmHg 05/12/2014 9:06 EST [facility] Comment:Sample retested, res ult confirmed tCO2, Cord blood 30(H) 14 - 22 mEq/L 05/12/2014 9:06 [facility] Base Deficit 3.4 05/12/2014 9:06 EST [facility] Blood specimen (specimen) BLOOD SPECIMEN / Unknown 05/12/2014 8:35 EST 05/12/2014 8:45 EST Khalida Quiñones MD GEN LAB UNIT COLLECT ORDERABLES Performing Organization Address City/[facility]/ZIP Co de Phone Number [facility] [address] [place] [address] * UA REFLEX (05/12/2014 8:12 EST) UA Billing Microscopic not indicated. 05/12/2014 8:37 EST [facility] URINE / Unknown 05/12/2014 8 :12 EST 05/12/2014 8:29 EST Cecily Jolley MD URINALYSIS ORDERABLE S Performing Organization Address City/[facility] Co de Phone Number [facility] [address] [place] [address] * CREATININE, URINE RANDOM (05/12/2014 8:12 EST) Creatinine, Urn [place] 15.4 mg/dl 05/12/2014 8:55 EST [facility] Urine specimen (specimen) URINE / Unknown 05/12/2014 8:12 EST 05/12/2014 8:30 EST Cecily Jolley MD URINALYSIS ORDERABLE S Performing Organization Address [facility] Co de Phone Number [facility] [address] [place] [address] * TOTAL PROTEIN, URINE RANDOM (05/12/2014 8:12 EST) Tot Prot,Ur Random 10 mg/dl 05/12/2014 8:55 EST [facility] Urine specimen (specimen) URINE / Unknown 05/12/2014 8:12 EST 05/12/2014 8:30 EST Cecily Jolley MD URINALYSIS ORDERABLE S Performing Organization Address City/[facility]/ZIP Co de Phone Number [facility] [address] [place] [address] * URINE CULTURE IF UA POSITIVE - NON POCT URINALYSIS ONLY (05/12/2014 8:12 EST) Culture if Indicated Culture not indicated by urinalysis results. 05/12/2014 10:13 [facility] Urine specimen (specimen) TOPOGRAPHY UNKNOWN / Unknown 05/12/2014 8:12 EST 05/12/2014 8:29 EST Cecily Jolley MD MICROBIOLOGY - GENER AL ORDERABLES Performing Organization Address [facility] Co de Phone Number [facility] [address] [place] [address] * URINALYSIS (05/12/2014 8:12 EST) Color, UA Yellow 05/12/2014 8:37 [facility] Clarity, UA Clear 05/12/2014 8:37 [facility] Glucose, UA Neg Neg 05/12/2014 8:37 [facility] Bilirubin, UA Neg Neg 05/12/2014 8:37 [facility] Ketones, UA Neg Neg 05/12/2014 8:37 [facility] Specific [place], Urine <1.005 1.001 - 1.035 05/12/2014 8:37 [facility] Blood, UA Neg Neg 05/12/2014 8:37 [facility] pH, UA 6.0 4.6 - 8.0 05/12/2014 8:37 [facility] Protein, UA Neg Neg 05/12/2014 8:37 [facility] Urobilinogen, UA 0.2 0.2 - 1.0 E.U./dl 05/12/2014 8:37 [facility] Nitrite, UA Neg Neg 05/12/2014 8:37 EST [facility] Leuk Esterase Neg Neg 05/12/2014 8:37 EST [facility] Urine specimen (specimen) URINE / Unknown 05/12/2014 8:12 EST 05/12/2014 8:29 EST Cecily Jolley MD URINALYSIS ORDERABLE S Performing Organization Address [facility] Co de Phone Number [facility] [address] [place] [address] * (ABNORMAL) GLUCOSE, GLUCOMETER (05/12/2014 7:13 EST) Glucose, Fingerstick 114(H) 70 - 100 mg/dl 05/12/2014 7:17 EST [facility] Communication Clerk ID [id number] 05/12/2014 7:17 EST [facility] Comment:Test Performed by [facility] BLOOD SPECIMEN / Unknown 05/12/2014 7:13 EST 05/12/2014 7:17 EST Kristi Leblanc MD CHEMISTRY & BLOOD GA S ORDERABLES Performing Organization Address [facility] Co de Phone Number [facility] [address] [place] [address] * TYPE AND SCREEN (05/12/2014 6:30 EST) ABO A [facility] Rh Factor Negative [facility] Antibody Screen Negative [facility] Comment:SPECIMEN EXPIRES ON 05/15/14 23:59 Blood specimen (specimen) 05/12/2014 6:30 EST Hayley Stewart MD BLOOD BANK TESTS Performing Organization Address [facility] Co de Phone Number [facility] * HEMAGRAM (05/12/2014 6:30 EST) WBC Clotted 4.0 - 12.4 K/cmm 05/12/2014 8:04 EST [facility] Comment: Specimen unsuitable for analysis. Credit Issued RBC Clotted 3.86 - 5.04 M/cmm 05/12/2014 8:04 [facility] Comment: Specimen unsuitable for analysis. Credit Issued Hemoglobin Clotted 11.6 - 15.2 gm/dl 05/12/2014 8:04 [facility] Comment: Specimen unsuitable for analysis. Credit Issued HCT Clotted 34.9 - 44.4 % 05/12/2014 8:04 [facility] Comment: Specimen unsuitable for analysis. Credit Issued MCV Clotted 81 - 98 fl 05/12/2014 8:04 [facility] Comment: Specimen unsuitable for analysis. Credit Issued MCH Clotted 26.7 - 33.3 pg 05/12/2014 8:04 [facility] Comment: Specimen unsuitable for analysis. Credit Issued Hypochromia Clotted 05/12/2014 8:04 [facility] Comment: Specimen unsuitable for analysis. Credit Issued MCHC Clotted 32.1 - 35.9 gm/dl 05/12/2014 8:04 [facility] Comment: Specimen unsuitable for analysis. Credit Issued RDW-CV Clotted 11.7 - 14.6 % 05/12/2014 8:04 [facility] Comment: Specimen unsuitable for analysis. Credit Issued RDW-SD Clotted 37.6 - 50.3 fl 05/12/2014 8:04 [facility] Comment: Specimen unsuitable for analysis. Credit Issued Anisocytosis Clotted 05/12/2014 8:04 [facility] Comment: Specimen unsuitable for analysis. Credit Issued PLT Clotted 141 - 320 K/cmm 05/12/2014 8:04 [facility] Comment: Specimen unsuitable for analysis. Credit Issued MPV Clotted 7.5 - 11.2 fl 05/12/2014 8:04 [facility] Comment: Specimen unsuitable for analysis. Credit Issued Condition Clotted 05/12/2014 8:04 [facility] Comment: Specimen unsuitable for analysis. Credit Issued Blood specimen (specimen) BLOOD SPECIMEN / Unknown 05/12/2014 6:30 EST 05/12/2014 7:43 EST Hayley Stewart MD HEMATOLOGY & PF4 O RDERABLES Performing Organization Address City/[facility] Co de Phone Number [facility] [address] [place] [address] * (ABNORMAL) GLUCOSE, GLUCOMETER (05/12/2014 5:14 EST) Glucose, Fingerstick 127(H) 70 - 100 mg/dl 05/12/2014 5:15 EST [facility] Communication Clerk ID [id number] 05/12/2014 5:15 EST [facility] Comment:Test Performed by [facility] BLOOD SPECIMEN / Unknown 05/12/2014 5:14 EST 05/12/2014 5:15 EST Kristi Leblanc MD CHEMISTRY & BLOOD GA S ORDERABLES Performing Organization Address [facility] Co de Phone Number [facility] [address] [place] [address] documented in this encounter Visit Diagnoses Diagnosis Routine history and physical examination of adult- Primary Routine general medical examination at a health care facility Routine history and physical examination of adult Routine general medical examination at a health care facility Type 2 diabetes mellitus ([facility]) Type II or unspecified type diabetes [...] fasting glucose Type 2 diabetes mellitus ([facility]) Type II or unspecified type diabetes mellitus [...] Chavez RN)[phone] (Due - Provider: Mirian Cisneros [facility]) 0752 (Given - Provider: Jackie Martínez RN)1445 [...] Rachael Bowles RN) 1031 (Given - Provider: Jackie Martínez RN) 0907 (Given - Provider: Jackie [...] Leyda Shelby LPN)0625 (Given - Provider: Leyda Shelby LPN)1122 (Given - Provider: Rachael Bowles RN)1501 [...] 05/13/2014 documented in this encounter Care Teams Loin Trimmer Relationship Specialty Start Date End Date Bhargav Padron, DRUG REGULATORY AFFAIRS SPECIALIST [address] [place] [phone] PCP - General 03/19/13 07/06/19 documented as of this encounter
--- OUTSIDE RECORDS SUMMARY | 2024-02-17 18:40 | XMS_ITS | Encounter Summary ---
Author Organization [facility] Address [address] [place] [address] Care Team Providers Care Noc Analyst Name Role Phone Annette Sidhu APRN Primary Care Provider [phone] Encounter Details Date Type Department Care Team (Late st Contact Info) Description 05/07/2014 15:50 EST - 05/07/2014 23:59 [facility] Hospital Encounter [facility] [phone] Charity Onofre MD [address] [facility], [address] [place] [id number] Discharge Disposition: Home or Self Care Social [...] Code Departure Means Destination Home or Self Usp documented in this encounter Plan of Treatment Not on file documented as of this encounter Goals Goal Patient Goal Type Associated Problems Recent Progress Patient-Stated? Author HEMOGLOBIN A1C < 7.0 Result Component Type 2 diabetes mellitus ([facility]) 8.7(07/07/2015 5:05 EST) Annmarie Lopez documented as of this encounter Visit Diagnoses Not on filedocumented in this encounter Care Teams Noc Analyst Relationship Specialty Start Date End Date Annette Sidhu, INSTRUMENT ROOM TECHNICIAN [address] [place] [phone] PCP - General 03/19/13 07/06/19 documented as of this encounter
--- OUTSIDE RECORDS SUMMARY | 2024-02-17 18:40 | XMS_ITS | Encounter Summary ---
Author Organization [facility] Address [address] [place] [address] Care Team Providers Care Parts Clerk Plant Maintenance Name Role Phone Annette Sidhu APRN Primary Care Provider [phone] Reason for Visit * Reason Comments Post- Care wound check Encounter Details Date Type Department Care Team (Late st Contact Info) Description 06/15/2014 12:50 EST Office Visit [facility] Obstetrics & Midwifery - [address] [address] Gisela Hercules MD [address] [place] [address], [address] [place] [address] section wound seroma, (Primary Dx) [...] * Maria Eugenia Dan MD - 06/15/2014 1816 EST Images from the original note were [...] Component Type 2 diabetes mellitus ([facility]) 8.7(07/07/2015 5:05 EST) Annmarie Lopez documented [...] 11/14/2015 added in this encounter Care Teams Parts Clerk Plant Maintenance Relationship Specialty Start Date End Date Annette Sidhu, SORTING MACHINE OPERATOR [address] [place] [phone] PCP - General 03/19/13 07/06/19 documented as of this encounter
--- OUTSIDE RECORDS SUMMARY | 2024-02-17 18:40 | XMS_ITS | Encounter Summary ---
Author Organization [facility] Address [address] [place] [address] Care Team Providers Care Pill Maker Name Role Phone Annette Sidhu APRN Primary Care Provider [phone] Reason for Visit * Reason Comments Wound Check Encounter Details Date Type Department Care Team (Late st Contact Info) Description 06/01/2014 11:00 EST Office Visit [facility] Obstetrics & Midwifery - [address] [id number] Gisela Hercules MD [address] [place] [address], [address] [place] [address] section wound seroma, (Primary Dx) [...] with Home health nurse Weekly visit [facility] Cont oral hypoglycemics- FBS running 200- disc call end with numbers Cont keflex as prescribed Charity Onofre MD documented in this encounter Plan of Treatment Not on file documented as of this encounter Goals Goal Patient Goal Type Associated Problems Recent Progress Patient-Stated? Author HEMOGLOBIN A1C < 7.0 Result Component Type 2 diabetes mellitus ([facility]) 8.7(07/07/2015 5:05 EST) No Annmarie Vigil [...] documented as of this encounter Care Teams Pill Maker Relationship Specialty Start Date End Date Annette Sidhu APRN [address] [place] [phone] PCP - General 03/19/13 07/06/19 documented as of this encounter
--- OUTSIDE RECORDS SUMMARY | 2024-02-17 18:40 | XMS_ITS | Encounter Summary ---
Author Organization [facility] Address [address] [place] [address] Care Team Providers Care Document Control Supervisor Name Role Phone Annette Sidhu APRN Primary Care Provider [phone] Reason for Visit * Reason Onset Date Comments Wound Care 06/21/2014 Encounter Details Date Type Department Care Team (Late st Contact Info) Description 06/21/2014 Telephone [facility] Obstetrics & Midwifery - [address] [address] Michelle Devine sales planning manager Social History Tobacco Use Types Packs/Day Years [...] Encounter - Michelle Devine RN - 06/21/2014 7410 EST Phone call from Jossie FRANCOIS at [facility], she was there for wound care, wound now 1cm slit. She anticipates that at her Saturday visit she will no longer need home visits for wound care and left the intake phone number if so to discontinue orders ([phone]). documented in this encounter Plan of Treatment Not on file documented as of this encounter Goals Goal Patient Goal Type Associated Problems Recent Progress Patient-Stated? Author HEMOGLOBIN A1C < 7.0 Result Component Type 2 diabetes mellitus ([facility]) 8.7(07/07/2015 5:05 EST) No Annmarie Vigil documented as of this encounter Visit Diagnoses Not on filedocumented in this encounter Care Teams Document Control Supervisor Relationship Specialty Start Date End Date Annette Sidhu APRN [address] [place] [phone] PCP - General 03/19/13 07/06/19 documented as of this encounter
--- OUTSIDE RECORDS SUMMARY | 2024-02-17 18:40 | XMS_ITS | Encounter Summary ---
Author Organization [facility] Address [address] [place] [address] Care Team Providers Care Knockout Worker Name Role Phone Annette Sidhu APRN Primary Care Provider [phone] Reason for Visit * Reason Comments Post- Care Encounter Details Date Type Department Care Team (Late st Contact Info) Description 06/23/2014 14:30 EST Office Visit [facility] Obstetrics [facility] [place] [address] Kristi Leblanc MD [address] [place] [address] Supervision of high-risk of elderly [...] no longer requires wound care services from [facility]. Guzman will follow up with her glue jointer operator and PCP for her regular care. Kristi Leblanc MD documented in this encounter Plan of Treatment Not on file documented as of this encounter Goals Goal Patient Goal Type Associated Problems Recent Progress Patient-Stated? Author HEMOGLOBIN A1C < 7.0 Result Component Type 2 diabetes mellitus ([facility]) 8.7(07/07/2015 5:05 EST) No Annmarie Vigil documented as of this encounter Visit Diagnoses Diagnosis Supervision of high-risk of elderly multigravida- Primary documented in this encounter Care Teams Knockout Worker Relationship Specialty Start Date End Date Annette Sidhu, WEIGHT AND TEST BAR CLERK [address] [place] [phone] PCP - General 03/19/13 07/06/19 documented as of this encounter
--- OUTSIDE RECORDS SUMMARY | 2024-02-17 18:40 | XMS_ITS | Encounter Summary ---
Author Organization [facility] Address [address] [place] [address] Care Team Providers Care Resident Physician In Radiology Name Role Phone Annette Sidhu APRN Primary Care Provider [phone] Encounter Details Date Type Department Care Team (Late st Contact Info) Description 04/30/2014 Phlebotomy Only [address] [address] Boot And Saddle Repair Person, Outpatient Benign essential hypertension antepartum Social History [...] Component Type 2 diabetes mellitus ([facility]) 8.7(07/07/2015 5:05 EST) No Annmarie [...] 15 - 46 U/L 04/30/2014 15:15 EST [facility] Blood specimen (specimen) BLOOD SPECIMEN / Unknown 04/30/2014 14:03 EST 04/30/2014 14:29 EST Elke Stevenson MD CHEMISTRY & B LOOD GAS ORDERABLES [facility] [address] [place] [address] * ALT (04/30/2014 14:03 EST) ALT 27 <53 U/L 04/30/2014 15:15 EST [facility] Blood specimen (specimen) BLOOD SPECIMEN / Unknown 04/30/2014 14:03 EST 04/30/2014 14:29 EST Elke Stevenson MD CHEMISTRY & B LOOD GAS ORDERABLES [facility] [address] [place] [address] * (ABNORMAL) HEMAGRAM (04/30/2014 14:03 EST) WBC 17.07(H) 4.0 - 12.4 K/cmm 04/30/2014 14:42 [facility] RBC 4.25 3.86 - 5.04 M/cmm 04/30/2014 14:42 [facility] Hemoglobin 13.5 11.6 - [...] Elke Stevenson MD HEMATOLOGY & PF4 ORDERABLES [facility] [address] [place] [address] * URIC ACID (04/30/2014 14:03 EST) Uric Acid 4.8 2.2 - 7.7 mg/dl 04/30/2014 15:15 [facility] Blood specimen (specimen) BLOOD SPECIMEN / Unknown 04/30/2014 14:03 EST 04/30/2014 14:29 EST Elke Stevenson MD CHEMISTRY & B LOOD GAS ORDERABLES Performing Organization Address City/[facility]/ZIP Co de Phone Number [facility] [address] [place] [address] * CREATININE (04/30/2014 14:03 EST) Creatinine 0.58 0.52 - 1.04 mg/dl 04/30/2014 15:15 EST [facility] GFR, Calculated >60 >60 ml/min/1.7 3m2 04/30/2014 15:15 EST [facility] Blood specimen (specimen) BLOOD SPECIMEN / Unknown 04/30/2014 14:03 EST 04/30/2014 14:29 EST Elke Stevenson MD CHEMISTRY & B LOOD GAS ORDERABLES Performing Organization Address City/[facility] Co de Phone Number [facility] [address] [place] [address] documented in this encounter Visit Diagnoses Diagnosis Benign essential hypertension antepartum documented in this encounter Care Teams Resident Physician In Radiology Relationship Specialty Start Date End Date Annette Sidhu APRN [address] [place] [phone] PCP - General 03/19/13 07/06/19 documented as of this encounter
--- OUTSIDE RECORDS SUMMARY | 2024-02-17 18:40 | XMS_ITS | Encounter Summary ---
Author Organization [facility] Address [address] [place] [address] Care Team Providers Care Muffler Mechanic Name Role Phone Annette Sidhu APRN Primary Care Provider [phone] Reason for Visit * Reason Comments Non-stress Test Encounter Details Date Type Department Care Team (Late st Contact Info) Description 05/07/2014 9:30 EST Nurse Only [facility] Obstetrics & Midwifery - [address] [address] Unknown, Provider, Nurse, Bambi Chronic hypertension with [...] 2 diabetes mellitus ([facility]) 8.7(07/07/2015 5:05 EST) No Annmarie Vigil documented as of this encounter Visit Diagnoses Diagnosis Chronic hypertension with exacerbation during in third trimester- Primary Diabetes mellitus, antepartum(648.03) Diabetes mellitus, antepartum documented in this encounter Care Teams Muffler Mechanic Relationship Specialty Start Date End Date Annette Sidhu APRN [address] [place] [phone] PCP - General 03/19/13 07/06/19 documented as of this encounter
--- OUTSIDE RECORDS SUMMARY | 2024-02-17 18:40 | XMS_ITS | Encounter Summary ---
Author Organization [facility] Address [address] [place] [address] Care Team Providers Care Pusher Runner Name Role Phone Annette Sidhu APRN Primary Care Provider [phone] Reason for Visit * Reason Onset Date Comments Appointment Related 06/09/2014 Encounter Details Date Type Department Care Team (Late st Contact Info) Description 06/09/2014 Telephone [facility] Obstetrics & Midwifery - [address] [address] Michelle Devine RN Appointment Related Social History [...] 1207 EST Phone call from Jossie at [facility], they were able to make contact with [...] 2 diabetes mellitus ([facility]) 8.7(07/07/2015 5:05 EST) No Annmarie Vigil documented as of this encounter Visit Diagnoses Not on filedocumented in this encounter Care Teams Pusher Runner Relationship Specialty Start Date End Date Annette Sidhu APRN [address] [place] [phone] PCP - General 03/19/13 07/06/19 documented as of this encounter
--- OUTSIDE RECORDS SUMMARY | 2024-02-17 18:40 | XMS_ITS | Encounter Summary ---
Author Organization [facility] Address [address] [place] [address] Care Team Providers Care Director Business Development Name Role Phone Annette Sidhu APRN Primary Care Provider [phone] Reason for Visit * Reason Comments Drainage from Incision Encounter Details Date Type Department Care Team (Late st Contact Info) Description 06/08/2014 14:30 EST Office Visit [facility] Obstetrics & Midwifery - [facility] [address] [place], [place] [id number] Gisela Hercules MD [address] [place] [address], [address] [place] [address] Chronic hypertension with exacerbation during [...] Component Type 2 diabetes mellitus ([facility]) 8.7(07/07/2015 5:05 EST) No Annmarie Vigil documented as of this encounter Visit Diagnoses Diagnosis Chronic hypertension with exacerbation during in third trimester- Primary section wound seroma, Other complication of obstetrical surgical wounds, condition or complication documented in this encounter Care Teams Director Business Development Relationship Specialty Start Date End Date Sidhu, Annette M, GALLERY HOST [address] [place] [phone] PCP - General 03/19/13 07/06/19 documented as of this encounter
--- OUTSIDE RECORDS SUMMARY | 2024-02-17 18:41 | XMS_ITS | Encounter Summary ---
Author Organization [facility] Address [address] [place] [address] Care Team Providers Care Geospatial Imagery Intelligence Analyst Name Role Phone Annette Sidhu APRN Primary Care Provider [phone] Reason for Visit * Reason Comments Routine Visit Encounter Details Date Type Department Care Team (Late st Contact Info) Description 04/23/2014 16:[address] [facility] Obstetrics & Midwifery - [address] [address] Kristi Leblanc MD [address] [place] [address] [place]: 33w4d Social History Tobacco [...] Neg Neg Ketones Trace (*) Neg Specific [place] 1.020 1.001 - 1.035 Blood Neg Neg pH 5.5 4.6 - 8.0 Protein Neg Neg Urobilinogen 0.2 0.2 - 1.0 E.U./dl Nitrite Neg Neg Leuk Esterase Neg Neg Tech ID [id number] . Wanda Stack 04.23.14 * Kristi Leblanc MD - 04/23/2014 1604 EST [facility] ATTG CC: 38 y.o. @ 33w4d here [...] 7.0 Result Component Type 2 diabetes mellitus ([facility]) 8.7(07/07/2015 5:05 EST) No Annmarie Vigil documented as of this encounter Procedures Procedure Name Priority Date/Time Associated Diagnosis Comments POCT URINE DIPSTICK, CLINITEK Routine 04/23/2014 16:11 EST Chronic hypertension with exacerbation during in third trimester documented in this encounter Results * (ABNORMAL) POCT URINE DIPSTICK (04/23/2014 16:11 EST) Color YELLOW 04/23/2014 16:17 [facility] Clarity, UA Clear 04/23/2014 16:17 [facility] Glucose 2+(A) Neg 04/23/2014 16:17 [facility] Bilirubin Neg Neg 04/23/2014 16:17 [facility] Ketones Trace(A) Neg 04/23/2014 16:17 [facility] Specific [place] 1.020 1.001 - 1.035 04/23/2014 16:17 [facility] Blood Neg Neg 04/23/2014 16:17 [facility] pH 5.5 4.6 - 8.0 04/23/2014 16:17 [facility] Protein Neg Neg 04/23/2014 16:17 [facility] Urobilinogen 0.2 0.2 - 1.0 E.U./dl 04/23/2014 16:17 EST [facility] Nitrite Neg Neg 04/23/2014 16:17 EST [facility] Leuk Esterase Neg Neg 04/23/2014 16:17 EST [facility] factory expert ID [id number] 04/23/2014 16:17 EST [facility] Comment:Test performed at [facility] Urine specimen (specimen) URINE / Unknown 04/23/2014 16:11 EST 04/23/2014 16:17 EST Kristi Leblanc MD POINT OF CARE TEST O RDERABLES [facility] [address] [place] [address] documented in this encounter Visit Diagnoses Diagnosis Chronic hypertension with exacerbation during in third trimester- Primary Diabetes mellitus, antepartum(648.03) Diabetes mellitus, antepartum Supervision of high-risk of elderly multigravida documented in this encounter Care Teams Geospatial Imagery Intelligence Analyst Relationship Specialty Start Date End Date Annette Sidhu APRN [address] [place] [phone] PCP - General 03/19/13 07/06/19 documented as of this encounter
--- OUTSIDE RECORDS SUMMARY | 2024-02-17 18:41 | XMS_ITS | Encounter Summary ---
Author Organization [facility] Address [address] [place] [address] Care Team Providers Care Yardage Control Operator Name Role Phone Annette Sidhu APRN Primary Care Provider [phone] Encounter Details Date Type Department Care Team (Latest Contact Info) Description 04/16/2014 11:56 EST - 04/16/2014 23:59 [facility] [place] [address] Unknown, Provider, Discharge Disposition: Home or Self [...] Type 2 diabetes mellitus ([facility]) 8.7(07/07/2015 5:05 EST) Annmarie Lopez documented as of this encounter Visit Diagnoses Not on filedocumented in this encounter Care Teams Yardage Control Operator Relationship Specialty Start Date End Date Annette Sidhu APRN [address] [place] [phone] PCP - General 03/19/13 07/06/19 documented as of this encounter
--- OUTSIDE RECORDS SUMMARY | 2024-02-17 18:41 | XMS_ITS | Encounter Summary ---
Author Organization [facility] Address [address] [place] [address] Care Team Providers Care Gas Desulfurizer Name Role Phone Annette Sidhu APRN Primary Care Provider Reason for Visit * Reason Comments Non-stress Test Encounter Details Date Type Department Care Team (Late st Contact Info) Description 04/20/2014 3:03 EST - 04/20/2014 3:45 EST Hospital Encounter [facility] [address] [place] [address] Elke Stevenson MD [address] [facility], Level [address] [place] [address] Supervision of high-risk of elderly [...] moderate variability, spontaneous accelerations, and no decelerations. [place] quiescent. D/W Dr. Pratik Perez MD, PGY3 [...] diabetes mellitus ([facility]) 8.7(07/07/2015 5:05 EST) No [...] 04/20/2014 documented in this encounter Care Teams Gas Desulfurizer Relationship Specialty Start Date End Date Annette Sidhu, COLD WORKING INSPECTOR [address] [place] [phone] PCP - General 03/19/13 07/06/19 documented as of this encounter
--- OUTSIDE RECORDS SUMMARY | 2024-02-17 18:41 | XMS_ITS | Encounter Summary ---
Author Organization [facility] Address [address] [place] [address] Care Team Providers Care Burglar Alarm Inspector Name Role Phone Annette Sidhu APRN Primary Care Provider Reason for Referral * FILLER PICKER (Routine) - Closed Specialty Diagnoses / Procedures [facility] To Contact Diagnoses Hypertension complicating Diabetes mellitus, antepartum(648.03) Procedures [facility] BIOPHYSICAL PROFILE Eduardo Friend MD [address] [place] [address] Referral ID Status Reason Start Date Expiration Date Visits Re quested Visits Authorized [id number] Closed 04/09/2014 1 1 Reason for Visit * Reason Comments Routine Visit Vulvar Irritation Encounter Details Date Type Department Care Team (Late st Contact Info) Description 04/09/2014 9:00 EST Routine [facility] Obstetrics & Midwifery - [address] [address] Eduardo Friend MD [address] [place] [address] [place]: 31w4d Social History Tobacco Use [...] MD * Eduardo Friend MD - 04/09/2014 0993 EST Subjective Guzman Jean is a 38 [...] discussed and approved by [facility]. Chronic hypertension in The patient has a [...] Component Type 2 diabetes mellitus ([facility]) 8.7(07/07/2015 5:05 EST) Annmarie Lopez documented as of this encounter Procedures Procedure Name Priority Date/Time Associated Diagnosis Comments [facility] BIOPHYSICAL PROFILE Routine 04/16/2014 11:49 EST Hypertension [...] 16 15 - 46 U/L 04/16/2014 12:55 [facility] ALT 25 <53 U/L 04/16/2014 12:55 [facility] BUN 5(L) 10 - 26 mg/dl 04/16/2014 12:55 [facility] Creatinine 0.50(L) 0.52 - 1.04 mg/dl 04/16/2014 12:55 [facility] GFR, Calculated >60 >60 ml/min/1.7 3m2 04/16/2014 12:55 [facility] Uric Acid 4.0 2.2 - 7.7 mg/dl 04/16/2014 12:55 [facility] WBC 15.53(H) 4.0 - 12.4 K/cmm 04/16/2014 12:34 [facility] RBC 3.91 3.86 - 5.04 M/cmm 04/16/2014 12:34 [facility] Hemoglobin 12.6 11.6 - 15.2 gm/dl 04/16/2014 12:34 [facility] HCT 36.6 34.9 - 44.4 % 04/16/2014 12:34 [facility] MCV 94 81 - 98 fl 04/16/2014 12:34 [facility] MCH 32.2 26.7 - 33.3 pg 04/16/2014 12:34 [facility] MCHC 34.3 32.1 - 35.9 gm/dl 04/16/2014 12:34 [facility] PLT 322(H) 141 - 320 K/cmm 04/16/2014 12:34 [facility] RDW-CV 12.6 11.7 - 14.6 % 04/16/2014 12:34 [facility] Blood specimen (specimen) BLOOD SPECIMEN / Unknown 04/16/2014 12:02 EST 04/16/2014 12:28 EST Eduardo Friend MD PACKAGES & DNA PROBE ORDERABLES Performing Organization Address City/State/[place] Co de Phone Number [facility] [address] [place] [address] * [facility] BIOPHYSICAL PROFILE (04/16/2014 11:49 EST) Anatomical Region [...] Transabdominal ultrasound examination, Voluson E8. Sufficient. Impression [id number] Biophysical Profile (including NST) This is a [...] 2. Biophysical profile score: . DVD number 795 Duration: 15 minutes. Non Stress Test Reactive FHR: 2 - normal. Baseline rate 150 bpm. Method ======== Transabdominal ultrasound examination, [place]uson E8. Sufficient. Impression [id number] Biophysical Profile (including NST) This is a garcia . Please see BPP score above. Follow-up Follow-up with weekly BPP's. Comment ========= This follow-up has been scheduled. Eduardo Friend MD [facility] ORDERABLE S * BACTERIAL CULTURE, URINE (04/09/2014 8:45 EST) Result No growth 04/10/2014 7:41 EST [facility] Urine specimen (specimen) URINE / Unknown 04/09/2014 8:45 EST 04/09/2014 9:37 EST Eduardo Friend MD MICROBIOLOGY - GENER AL ORDERABLES Performing Organization Address City/[facility] Co de Phone Number [facility] [address] [place] [address] * VAGINITIS EXAM (04/09/2014 8:42 EST) Gram Smear Result Few Yeast forms 04/09/2014 11:18 EST [facility] Result No Trichomonas antigen detected. 04/09/2014 10:48 EST [facility] Gram Smear Result Smear NOT consistent with bacterial vaginosis. 04/09/2014 11:18 EST [facility] Specimen of unknown material (specimen) VAGINAL STRUCTURE / Unknown 04/09/2014 8:42 EST 04/09/2014 9:36 EST Comment:Specimen submitted o n a swab Eduardo Friend MD MICROBIOLOGY - GENER AL ORDERABLES Performing Organization Address City/[facility]/[place] Co de Phone Number [facility] [address] [place] [address] * (ABNORMAL) POCT URINE DIPSTICK (04/09/2014 8:34 EST) Color YELLOW 04/09/2014 8:41 [facility] Clarity, UA Clear 04/09/2014 8:41 [facility] Glucose Neg Neg 04/09/2014 8:41 [facility] Bilirubin Neg Neg 04/09/2014 8:41 [facility] Ketones 1+(A) Neg 04/09/2014 8:41 [facility] Specific [place] 1.010 1.001 - 1.035 04/09/2014 8:41 [facility] Blood Neg Neg 04/09/2014 8:41 [facility] pH 6.5 4.6 - 8.0 04/09/2014 8:41 [facility] Protein Neg Neg 04/09/2014 8:41 [facility] Urobilinogen 0.2 0.2 - 1.0 E.U./dl 04/09/2014 8:41 [facility] Nitrite Neg Neg 04/09/2014 8:41 [facility] Leuk Esterase Trace(A) Neg 04/09/2014 8:41 [facility] hair colorist ID [id number] 04/09/2014 8:41 [facility] Comment:Test performed at [facility] Urine specimen (specimen) URINE / Unknown 04/09/2014 8:34 EST 04/09/2014 8:41 EST Eduardo Friend MD POINT OF CARE TEST O RDERABLES Performing Organization Address City/State/[place] Co de Phone Number [facility] [address] [place] [address] * CHLAMYDIA/GC AMPLIFIED (04/09/2014 8:32 EST) Specimen Description Endocervix 04/09/2014 9:40 [facility] Chlamydia Result No Chlamydia trachomatis DNA detected by barrel cleaner mediated amplification. 04/12/2014 13:46 [facility] GC Result No Neisseria gonorrhoeae DNA detected by barrel cleaner mediated amplification. 04/12/2014 13:46 [facility] Specimen of unknown material (specimen) TOPOGRAPHY UNKNOWN / Unknown 04/09/2014 8:32 EST 04/09/2014 9:35 EST Eduardo Friend MD MICROBIOLOGY - GENER AL ORDERABLES [facility] [address] [place] [address] documented in this encounter Visit Diagnoses Diagnosis [...] documented as of this encounter Care Teams Burglar Alarm Inspector Relationship Specialty Start Date End Date Annette Sidhu APRN [address] [place] [phone] PCP - General 03/19/13 07/06/19 documented as of this encounter
--- OUTSIDE RECORDS SUMMARY | 2024-02-17 18:41 | XMS_ITS | Encounter Summary ---
Author Organization [facility] Address [address] [place] [address] Care Team Providers Care Process Specialist Name Role Phone Annette Sidhu APRN Primary Care Provider Reason for Visit * Reason Comments Fall Encounter Details Date Type Department Care Team (Late st Contact Info) Description 02/22/2014 20:11 EDT - 02/22/2014 22:[address] [facility] [address] [place] [address] Elke Stevenson MD [address] [facility], Level [address] [place] [address] Supervision of high-risk of elderly [...] Notes * Selvin Christie MD - 02/22/2014 6139 EDT L&D Triage Note C/C: s/p fall. Guzman Jean is a 38 y.o. @ 25w0d [facility] U[facility]S HPI: Patient states that she fell on her abdomen when she was walking to work. Patient denies cx, LOF or VB. +FM after that. has been complicated by T2DM and depression. Patient is also Rh negative. O: BP 136/74 Temp(Src) 35.8 ??C (96.4 ??F) (Axillary) Resp 18 LMP 08/31/2013 FHT: 150 baseline, mod variability, pos accels, neg decels; Category I tracing [place]: Flat SSE: Deferred. SVE: deferred. Bedside U/S: [...] 2 diabetes mellitus ([facility]) 8.7(07/07/2015 [...] EDT) 02/25/2014 12:5 8 EDT Scan 2 Dental Chair Assembler ADMISSION ORDERABLE S * TRANSFUSION RECORD - SCANNED (02/25/2014 12:58 EDT) 02/25/2014 12:5 8 EDT Scan 2 Dental Chair Assembler LAB INFO SERVICE AN D SUPPORT & PHONE RESULT * ABO/RH (02/22/2014 21:24 EDT) ABO A [facility] Rh Factor Negative [facility] [place] [facility] 02/22/2014 21:2 4 EDT Provider Caitlin PATTERSON BLOOD BANK TESTS [facility] * RH IMMUNE GLOBULIN (300UG) (02/22/2014 20:25 EDT) Derivative Code Rh Immune Globulin 300 ug IAM [facility] Lot Number [id number] [facility] Unit Status Transfuse [...] 02/22 documented in this encounter Care Teams Process Specialist Relationship Specialty Start Date End Date Annette Sidhu APRN [address] [place] [phone] PCP - General 03/19/13 07/06/19 documented as of this encounter
--- OUTSIDE RECORDS SUMMARY | 2024-02-17 18:41 | XMS_ITS | Encounter Summary ---
Author Organization [facility] Address [address] [place] [address] Care Team Providers Care Pipe Threading Machine Operator Name Role Phone Annette Sidhu APRN Primary Care Provider Encounter Details Date Type Department Care Team (Late st Contact Info) Description 02/22/2014 Phlebotomy Only [address] [address] [employer] Production [employer]ater, Outpatient Diabetes mellitus, antepartum(648.03); Supervision of other [...] 7.0 Result Component Type 2 diabetes mellitus ([facility]) 8.7(07/07/2015 5:05 EST) No Annmarie Vigil documented [...] BLOOD GAS ORDERABLES [facility] [address] [place] [address] * TSH (02/22/2014 14:55 EDT) TSH 0.67 0.35 - 5.00 uIU/ml [facility] Blood specimen (specimen) 02/22/2014 14:55 EDT 02/22/2014 16:31 EDT Eduard Pineda MD CHEMISTRY & BLOOD GAS ORDERABLES Performing Organization Address [facility] Co de Phone Number [facility] [address] [place] [address] * FRUCTOSAMINE (02/22/2014 14:55 EDT) Fructosamine, S 216 200 - 285 mcmol/L [facility] Comment: Performed by: [facility], [address], [place] [address], Broadcast Operations Engineer: Rose Lincoln, Ph.D. Blood specimen (specimen) 02/22/2014 14:55 EDT 02/22/2014 16:31 EDT Eduard Pineda MD CHEMISTRY & BLOOD GAS ORDERABLES Performing Organization Address [facility] de Phone Number [facility] [address] [place] [address] * HEMOGLOBIN A1C (02/22/2014 14:55 EDT) Pathologist [facility] Hemoglobin A1C 5.8 % [facility] [...] BLOOD GA S ORDERABLES Performing Organization Address [facility] Co de Phone Number [facility] [address] [place] [address] * (ABNORMAL) HEMAGRAM (02/22/2014 14:55 EDT) Pathologist [facility] WBC 15.39(H) 4.0 - 12.4 K/cmm [facility] [...] & PF4 ORD ERABLES Performing Organization Address [facility] Co de Phone Number [facility] [address] [place] [address] * ANTIBODY SCREEN (02/22/2014 14:50 EDT) Antibody [...] uncontrolled documented in this encounter Care Teams Pipe Threading Machine Operator Relationship Specialty Start Date End Date Annette Sidhu APRN [address] [place] [phone] PCP - General 03/19/13 07/06/19 documented as of this encounter
--- OUTSIDE RECORDS SUMMARY | 2024-02-17 18:41 | XMS_ITS | Encounter Summary ---
Author Organization [facility] Address [address] [place] [address] Care Team Providers Care Metal Fabricator Welder Name Role Phone Annette Sidhu APRN Primary Care Provider [phone] Encounter Details Date Type Department Care Team (Late st Contact Info) Description 04/16/2014 Phlebotomy Only [address] [address] Stock Raiser, Outpatient Hypertension complicating ; Diabetes mellitus, antepartum(648.03) [...] diabetes mellitus ([facility]) 8.7(07/07/2015 5:05 EST) No Vigil, Annmarie documented as of this encounter Procedures Procedure Name Priority Date/Time Associated Diagnosis Comments PREECLAMPTIC PROFILE Routine 04/16/2014 12:02 EST Hypertension complicating HEMOGLOBIN A1C Routine 04/16/2014 12:02 EST Diabetes mellitus, antepartum(648.03) documented in this encounter Results * HEMOGLOBIN A1C (04/16/2014 12:02 EST) Hemoglobin A1C 7.0 % 04/16/2014 15:23 EST [facility] Comment: Reference Range: [...] Glucose 154 mg/dl 4 15:23 EST [facility] Comment: eAG represents the A1c result expressed as average glucose in mg/dl. Blood specimen (specimen) BLOOD SPECIMEN / Unknown 04/16/2014 12:02 EST 04/16/2014 12:28 EST Eduardo Friend MD CHEMISTRY & BLOOD GA S ORDERABLES [facility] [address] [place] [address] * (ABNORMAL) PREECLAMPTIC PROFILE (04/16/2014 12:02 EST) AST 16 15 - 46 U/L 04/16/2014 12:55 EST [facility] ALT 25 <53 U/L 04/16/2014 12:55 EST [facility] BUN 5(L) 10 - 26 mg/dl 04/16/2014 12:55 [facility] Creatinine 0.50(L) 0.52 - 1.04 mg/dl 04/16/2014 12:55 [facility] GFR, Calculated >60 >60 ml/min/1.7 3m2 04/16/2014 12:55 [facility] Uric Acid 4.0 2.2 - 7.7 mg/dl 04/16/2014 12:55 [facility] WBC 15.53(H) 4.0 - 12.4 K/cmm 04/16/2014 12:34 [facility] RBC 3.91 3.86 - 5.04 M/cmm 04/16/2014 12:34 [facility] Hemoglobin 12.6 11.6 - 15.2 gm/dl 04/16/2014 12:34 [facility] HCT 36.6 34.9 - 44.4 % 04/16/2014 12:34 [facility] MCV 94 81 - 98 fl 04/16/2014 12:34 [facility] MCH 32.2 26.7 - 33.3 pg 04/16/2014 12:34 [facility] MCHC 34.3 32.1 - 35.9 gm/dl 04/16/2014 12:34 [facility] PLT 322(H) 141 - 320 K/cmm 04/16/2014 12:34 [facility] RDW-CV 12.6 11.7 - 14.6 % 04/16/2014 12:34 [facility] Blood specimen (specimen) BLOOD SPECIMEN / Unknown 04/16/2014 12:02 EST 04/16/2014 12:28 EST Eduardo Friend MD PACKAGES & DNA PROBE ORDERABLES [facility] [address] [place] [address] documented in this encounter Visit Diagnoses Diagnosis Hypertension complicating Unspecified hypertension antepartum Diabetes mellitus, antepartum(648.03) Diabetes mellitus, antepartum documented in this encounter Care Teams Metal Fabricator Welder Relationship Specialty Start Date End Date Annette Sidhu, COLLECTIONS REPRESENTATIVE [address] [place] [phone] PCP - General 03/19/13 07/06/19 documented as of this encounter
--- OUTSIDE RECORDS SUMMARY | 2024-02-17 18:41 | XMS_ITS | Encounter Summary ---
Author Organization [facility] Address [address] [place] [address] Care Team Providers Care Boat Deckhand Name Role Phone Nahum Annette Kay APRN Primary Care Provider [phone] Reason for Referral * (Routine) - Closed Specialty Diagnoses / Procedures Referred By Contac t Referred To Contact Anna Corley MD [address] [place] [phone] Referral ID Status Reason Start Date Expiration Date V isits Requested Visits Authorized [id number] Closed Specialty Services Required 04/27/2014 1 1 Comments See your HIGH RISK pest control chemical technician on Saturday at 10:[address] Friend. An appointment has been made. * (Routine) - Closed Specialty Diagnoses / Procedures Referred By Contac [place] [address] [place] [phone] Referral ID Status Reason Start Date Expiration Date V isits Requested Visits Authorized [id number] Closed Specialty Services Required 04/27/2014 1 1 Encounter Details Date Type Department Care Team (Late st Contact Info) Description 04/23/2014 21:14 EST - 04/27/2014 16:35 EST Hospital Encounter [facility] Mother/Baby Unit [address], [place] [id number] Elke Stevenson MD [address] [phone] Haim Méndez MD [address] [address] Type 2 diabetes mellitus (CMS-HCC) [...] Summaries * Anna Fernandez MD - 04/26/2014 9070 EST Discharge Summary Chief Complaint/Reason for Admission: Elevated BPs, uncontrolled Type II diabetes Principal/Final Diagnosis: Uncontrolled diabetes Principal Procedure: None Condition at Discharge: Stable Assessment at Discharge: Good Hospital Course: Guzman Jean is a 38 yo w/ a past medical history of Type II DM and cHTN who initially presented at 33w4d after being found to have a BP of 156/78 in [facility] clinic and wassent up for a [...] not in labor. Will transfer back to [facility] for ongoing glucose control. Patient seen [...] ;ctxs spacing out;plan to transfer back to [facility] At 1435, EFM off; FSBG 116, novolog insuling given At 1445, transfer back to [facility] via w/c * Jessica Mendieta - [...] Ryan states that she lives alone in [place]. She has two older children ages 15 and 6 yrs that she has shared custody with their father and they split their time between her home and their fathers. Ryan states that FOB of this child is not involved, she does have a boyfriend whom she states is supportive. 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 Shestates she has notified her medical practice manager re time off from work, she [...] at this time. Melissa Singh RN/CM Pager [phone] * Eduard Pineda MD - 04/26/2014 0846 [...] EST 1015- Pt admitted to L&D from [facility] for NST and BPP 2* decreased movement and nonreactive NST. Pt oriented to room and call light c partner Randal. Pt denies H/A, visual changes, VB, ROM. 1055- Pt to [facility] for BPP c Dr Brooks and Dr Hastings. 1130- GBS collected and sent. Plan to DC pt to [facility]. * Oriana Brooks MD - 04/25/2014 1022 [...] 04/25/2014 * Steph Chavez, RN - 04/25/2014 0007 EST Pt put on monitor for daily NST at [id number]. FHR 150, minimal variability. Minimal movement.Strip viewed [...] units aspart before dinner 12 units NPH [facility] Kristi Segura MD * Kristi Segura MD [...] 24 hr urine. 0100- report called to [facility] 5 * Kell Sommers RN - 04/23/20142044 [...] in this encounter H&P Notes * Anthony Mnoterroso MD - 04/23/20142135 EST Department of Obstetrics [...] wnl last week. Was seen today in [facility] clinic where her BP was 156/78. [...] 1998,2007 times 2 ??? Hip arthroscopy 2013 [employer] History Social History H/o PCOS History Substance [...] not required antihypertensives yet this . Treated ciyh873 mg PO labetalol on admission due to [...] TDAP VACCINE =>7YO IM; NONSTRESS TEST Procedure(s): [place] NONSTRESS TEST Pre-Procedure Diagnose(s): Benign essential hypertension [...] 1]Stop NPH 2] Lantus 15 units at [facility] today- order written 3] Will decrease meal [...] of Care - Melissa Corado RN - 04/27/20143 EST Problem: RELATIONSHIP/COPING Goal: Patient & Family [...] - Phong Best RN IBCLC - 04/26/2014 0219 EST Problem: RELATIONSHIP/COPING Goal: Patient & Family Adapt To Hospitalization Outcome: Ongoing D: Pt upset and crying this evening. A: I sat and talked with her for some time. See previous note. R: Pt seemed less upset, but still solmn. Will continue to monitor. * Plan of Care - Phong Best RN IBCLC - 04/26/2014 0727 EST 2012: I entered to room to [...] Care - Steph Chavez RN - 04/25/2014 7456 EST Ante- Shift Note Reason for Admission: [...] Care - Stacy Galindo RN - 04/25/2014 0311 EST Problem: NUTRITION/DIET Goal: Adequate Fluid & [...] RN * Plan of Care - Dahiana Meraz RN - 04/24/2014 1820 EST Problem: PAIN [...] Care - Melissa Corado RN - 04/24/2014 0778 EST Ante- Shift Note Reason for Admission: [...] Type 2 diabetes mellitus ([facility]) 8.7(07/07/2015 5:05 EST) No Annmarie Vigil [...] 70 - 100 mg/dl 04/27/2014 16:23 EST [facility] Early Breastfeeding Care Specialist ID [id number] 04/27/2014 16:23 EST [facility] Comment:Test Performed by [facility] Services BLOOD SPECIMEN / Unknown 04/27/2014 16:16 EST 04/27/2014 16:23 EST Haim Méndez MD CHEMISTRY & BLOO D GAS ORDERABLES [facility] [address] [place] [address] * (ABNORMAL) GLUCOSE, GLUCOMETER (04/27/2014 12:49 EST) Glucose, Fingerstick 162(H) 70 - 100 mg/dl 04/27/2014 12:51 EST [facility] Early Breastfeeding Care Specialist [place] [id number] 04/27/2014 12:51 EST [facility] Comment:Test Performed by [facility] BLOOD SPECIMEN / Unknown 04/27/2014 12:49 EST 04/27/2014 12:51 EST Haim Méndez MD CHEMISTRY & BLOO D GAS ORDERABLES Performing Organization Address City/[facility] [address]/ZIP Co de Phone Number [facility] [address] [place] [address] * (ABNORMAL) GLUCOSE, GLUCOMETER (04/27/2014 10:09 EST) Glucose, Fingerstick 221(H) 70 - 100 mg/dl 04/27/2014 10:12 EST [facility] Early Breastfeeding Care Specialist ID [id number] 04/27/2014 10:12 EST [facility] Comment:Test Performed by [facility] BLOOD SPECIMEN / Unknown 04/27/2014 10:09 EST 04/27/2014 10:11 EST Haim Méndez MD CHEMISTRY & BLOO D GAS ORDERABLES Performing Organization Address City/[facility] [address]/ZIP Co de Phone Number [facility] [address] [place] [address] * (ABNORMAL) GLUCOSE, GLUCOMETER (04/27/2014 7:05 EST) Glucose, Fingerstick 121(H) 70 - 100 mg/dl 04/27/2014 7:07 EST [facility] Early Breastfeeding Care Specialist ID [id number] 04/27/2014 7:07 EST [facility] Comment:Test Performed by [facility] BLOOD SPECIMEN / Unknown 04/27/2014 7:05 EST 04/27/2014 7:07 EST Haim Méndez MD CHEMISTRY & BLOO D GAS ORDERABLES Performing Organization Address [facility] Co de Phone Number [facility] [address] [place] [address] * (ABNORMAL) GLUCOSE, GLUCOMETER (04/27/2014 0:18 EST) Glucose, Fingerstick 115(H) 70 - 100 mg/dl 04/27/2014 0:20 EST [facility] Early Breastfeeding Care Specialist ID [id number] 04/27/2014 0:20 EST [facility] Comment:Test Performed by rsing Services BLOOD SPECIMEN / Unknown 04/27/2014 0:18 EST 04/27/2014 0:20 EST Haim Méndez MD CHEMISTRY & BLOO D GAS ORDERABLES Performing Organization Address [facility] Co de Phone Number [facility] [address] [place] [address] * (ABNORMAL) GLUCOSE, GLUCOMETER (04/26/2014 21:15 EST) Glucose, Fingerstick 132(H) 70 - 100 mg/dl 04/26/2014 21:35 EST [facility] Early Breastfeeding Care Specialist [place] [id number] 04/26/2014 21:35 EST [facility] Comment:Test Performed by rsing Services BLOOD SPECIMEN / Unknown 04/26/2014 21:15 EST 04/26/2014 21:35 EST Haim Méndez MD CHEMISTRY & BLOO D GAS ORDERABLES Performing Organization Address City/[facility] [address]/ZIP Co de Phone Number [facility] [address] [place] [address] * (ABNORMAL) GLUCOSE, GLUCOMETER (04/26/2014 20:13 EST) Glucose, Fingerstick 111(H) 70 - 100 mg/dl 04/26/2014 20:15 EST [facility] Early Breastfeeding Care Specialist ID [id number] 04/26/2014 20:15 EST [facility] Comment:Test Performed by rsing Services BLOOD SPECIMEN / Unknown 04/26/2014 20:13 EST 04/26/2014 20:15 EST Haim Méndez MD CHEMISTRY & BLOO D GAS ORDERABLES Performing Organization Address [facility] Co de Phone Number [facility] [address] [place] [address] * (ABNORMAL) FRUCTOSAMINE (04/26/2014 17:55 EST) Fructosamine, S 286(H) 200 - 285 mcmol/L 04/27/2014 14:03 EST [facility] Blood specimen (specimen) BLOOD SPECIMEN / Unknown 04/26/2014 17:55 EST 04/26/2014 18:29 EST Anna Corley MD CHEMISTRY & BLOOD GA S ORDERABLES Performing Organization Address [facility] Phone Number [facility] [address] [place] [address] * (ABNORMAL) GLUCOSE, GLUCOMETER (04/26/2014 17:21 EST) Glucose, Fingerstick 195(H) 70 - 100 mg/dl 04/26/2014 17:31 EST [facility] Early Breastfeeding Care Specialist ID [id number] 04/26/2014 17:31 EST [facility] Comment:[facility] BLOOD SPECIMEN / Unknown 04/26/2014 17:21 EST 04/26/2014 17:31 EST Haim Méndez MD CHEMISTRY & BLOO D GAS ORDERABLES Performing Organization Address [facility] Co de Phone Number [facility] [address] [place] [address] * (ABNORMAL) GLUCOSE, GLUCOMETER (04/26/2014 14:36 EST) Glucose, Fingerstick 116(H) 70 - 100 mg/dl 04/26/2014 14:41 EST [facility] Early Breastfeeding Care Specialist [place] [id number] 04/26/2014 14:41 EST [facility] Comment:Test Performed by [facility] BLOOD SPECIMEN / Unknown 04/26/2014 14:36 EST 04/26/2014 14:41 EST Haim Méndez MD CHEMISTRY & BLOO D GAS ORDERABLES Performing Organization Address [facility] Co de Phone Number [facility] [address] [place] [address] * (ABNORMAL) GLUCOSE, GLUCOMETER (04/26/2014 9:21 EST) Glucose, Fingerstick 208(H) 70 - 100 mg/dl 04/26/2014 9:52 EST [facility] Early Breastfeeding Care Specialist ID [id number] 04/26/2014 9:52 EST [facility] Comment:Test Performed by [facility] BLOOD SPECIMEN / Unknown 04/26/2014 9:21 EST 04/26/2014 9:52 EST Haim Méndez MD CHEMISTRY & BLOO D GAS ORDERABLES Performing Organization Address [facility] Co de Phone Number [facility] [address] [place] [address] * (ABNORMAL) GLUCOSE, GLUCOMETER (04/26/2014 6:41 EST) Glucose, Fingerstick 122(H) 70 - 100 mg/dl 04/26/2014 6:42 EST [facility] Early Breastfeeding Care Specialist [place] [id number] 04/26/2014 6:42 EST [facility] Comment:Test Performed by [facility] BLOOD SPECIMEN / Unknown 04/26/2014 6:41 EST 04/26/2014 6:42 EST Haim Méndez MD CHEMISTRY & BLOO D GAS ORDERABLES Performing Organization Address [facility] Co de Phone Number [facility] [address] [place] [address] * (ABNORMAL) GLUCOSE, GLUCOMETER (04/25/2014 23:43 EST) Glucose, Fingerstick 128(H) 70 - 100 mg/dl 04/25/2014 23:49 EST [facility] Early Breastfeeding Care Specialist ID [id number] 04/25/2014 23:49 EST [facility] Comment:Test Performed by rsing Services BLOOD SPECIMEN / Unknown 04/25/2014 23:43 EST 04/25/2014 23:49 EST Haim Méndez MD CHEMISTRY & BLOO D GAS ORDERABLES Performing Organization Address City/[facility]/ZIP Co de Phone Number [facility] [address] [place] [address] * (ABNORMAL) GLUCOSE, GLUCOMETER (04/25/2014 21:18 EST) Glucose, Fingerstick 105(H) 70 - 100 mg/dl 04/25/2014 21:20 EST [facility] Early Breastfeeding Care Specialist ID [id number] 04/25/2014 21:20 EST [facility] Comment:Test Performed by [facility] Services BLOOD SPECIMEN / Unknown 04/25/2014 21:18 EST 04/25/2014 21:20 EST Haim Méndez MD CHEMISTRY & BLOO D GAS ORDERABLES Performing Organization Address City/[facility]/ZIP Co de Phone Number [facility] [address] [place] [address] * (ABNORMAL) GLUCOSE, GLUCOMETER (04/25/2014 18:12 EST) Glucose, Fingerstick 143(H) 70 - 100 mg/dl 04/25/2014 18:22 EST [facility] Early Breastfeeding Care Specialist ID [id number] 04/25/2014 18:22 EST [facility] Comment:Test Performed by [facility] BLOOD SPECIMEN / Unknown 04/25/2014 18:12 EST 04/25/2014 18:22 EST Haim Méndez MD CHEMISTRY & BLOO D GAS ORDERABLES [facility] [address] [place] [address] * (ABNORMAL) GLUCOSE, GLUCOMETER (04/25/2014 14:19 EST) Glucose, Fingerstick 149(H) 70 - 100 mg/dl 04/25/2014 14:20 EST [facility] Early Breastfeeding Care Specialist ID [id number] 04/25/2014 14:20 EST [facility] Comment:Test Performed by [facility] Services BLOOD SPECIMEN / Unknown 04/25/2014 14:19 EST 04/25/2014 14:20 EST Haim Méndez MD CHEMISTRY & BLOO D GAS ORDERABLES [facility] [address] [place] [address] * NONSTRESS TEST (04/25/2014 14:12 EST) Narrative [...] DNA detected by PCR. 04/26/2014 13:36 EST [facility] Specimen of unknown material (specimen) TOPOGRAPHY UNKNOWN / Unknown 04/25/2014 11:33 EST 04/25/2014 12:09 EST Oriana Hoffman MD MICROBIOLOGY - GENER AL ORDERABLES Performing Organization Address City/State/[facility] Co de Phone Number [facility] [address] [place] [address] * LD US BPP WITH NST (04/25/2014 [...] with maternal MRN (given to Jeevan Rendon booster pump oiler), Duration: 25 minutes. Non Stress Test Reactive FHR: 0 - non-reactive. Baseline rate 150 bpm. Deceleration: absent. Method ======== Transabdominal ultrasound examination, Voluson E8. Sufficient. Impression [id number] Biophysical Profile (including NST) This is a [...] maternal MRN (given to L T D booster pump oiler), Duration: 25 minutes. Non Stress Test Reactive FHR: 0 - non-reactive. Baseline rate 150 bpm. Deceleration: absent. Method ======== Transabdominal ultrasound examination, Voluson E8. Sufficient. Impression [id number] Biophysical Profile (including NST) This is a garcia . Please see BPP score above. Follow-up Follow-up with daily NSTs while in the hospital and BPPs weekly once discharged. Comment ========= Her weekly BPPs are already scheduled. Oriana Hoffman MD [facility] ORDERABLES * NONSTRESS TEST (04/25/2014 8:07 EST) Narrative Haim Méndez MD - 04/25/2014 8:07 EST Haim Méndez MD ? 04/25/2014 ??8:07 NST Report from [id number] Baseline Heart Rate: ??145 Accelerations: ??absent [...] 70 - 100 mg/dl 04/25/2014 6:36 EST [facility] Early Breastfeeding Care Specialist ID [id number] 04/25/2014 6:36 EST [facility] Comment:Test Performed by [facility] BLOOD SPECIMEN / Unknown 04/25/2014 6:34 EST 04/25/2014 6:36 EST Haim Méndez MD CHEMISTRY & BLOO D GAS ORDERABLES [facility] [address] [place] [address] * (ABNORMAL) GLUCOSE, GLUCOMETER (04/25/2014 1:37 EST) Glucose, Fingerstick 189(H) 70 - 100 mg/dl 04/25/2014 1:42 EST [facility] Early Breastfeeding Care Specialist ID [id number] 04/25/2014 1:42 EST [facility] Comment:Test Performed by [facility] BLOOD SPECIMEN / Unknown 04/25/2014 1:37 EST 04/25/2014 1:42 EST Haim Méndez MD CHEMISTRY & BLOO D GAS ORDERABLES Performing Organization Address City/[facility]/ZIP Co de Phone Number [facility] [address] [place] [address] * (ABNORMAL) GLUCOSE, GLUCOMETER (04/25/2014 0:44 EST) Glucose, Fingerstick 213(H) 70 - 100 mg/dl 04/25/2014 0:45 EST [facility] Early Breastfeeding Care Specialist ID [id number] 04/25/2014 0:45 EST [facility] Comment:Test Performed by [facility] BLOOD SPECIMEN / Unknown 04/25/2014 0:44 EST 04/25/2014 0:45 EST Haim Méndez MD CHEMISTRY & BLOO D GAS ORDERABLES Performing Organization Address [facility] Co de Phone Number [facility] [address] [place] [address] * (ABNORMAL) GLUCOSE, GLUCOMETER (04/24/2014 23:44 EST) Glucose, Fingerstick 252(H) 70 - 100 mg/dl 04/24/2014 23:46 EST [facility] Early Breastfeeding Care Specialist ID [id number] 04/24/2014 23:46 EST [facility] Comment:Test Performed by [facility] BLOOD SPECIMEN / Unknown 04/24/2014 23:44 EST 04/24/2014 23:46 EST Haim Méndez MD CHEMISTRY & BLOO D GAS ORDERABLES Performing Organization Address City/[facility]/ZIP Co de Phone Number [facility] [address] [place] [address] * (ABNORMAL) GLUCOSE, GLUCOMETER (04/24/2014 22:20 EST) Glucose, Fingerstick 242(H) 70 - 100 mg/dl 04/24/2014 22:22 EST [facility] Early Breastfeeding Care Specialist ID [id number] 04/24/2014 22:22 EST [facility] Comment:Test Performed by [facility] BLOOD SPECIMEN / Unknown 04/24/2014 22:20 EST 04/24/2014 22:22 EST Haim Méndez MD CHEMISTRY & BLOO D GAS ORDERABLES Performing Organization Address [facility]/ZIP Co de Phone Number [facility] [address] [place] [address] * URINE INFORMATION (04/24/2014 21:30 EST) Period 24 hrs 04/24/2014 21:54 EST [facility] Specimen Volume 5,000 mls 04/24/2014 21:54 EST [facility] URINE / Unknown 04/24/2014 2 1:30 EST 04/24/2014 21:53 EST Lilibeth Haines MD URINALYSIS ORDERABLE S Performing Organization Address [facility] Co de Phone Number [facility] [address] [place] [address] * CREATININE, URINE 24HR (04/24/2014 21:30 EST) Creatinine, Urn Elkins 22.6 mg/dl 04/24/2014 22:23 EST [facility] Creatinine, 24H Ur Calc 1.1 1.0 - 2.0 g/24 hrs 04/24/2014 22:23 EST [facility] Urine specimen (specimen) URINE / Unknown 04/24/2014 21:30 EST 04/24/2014 21:53 EST Sarita Blount MD URINALYSIS ORDERABLE S Performing Organization Address [facility] Co de Phone Number [facility] [address] [place] [address] * (ABNORMAL) TOTAL PROTEIN, URINE 24HR (04/24/2014 21:30 EST) Tot Prot,Ur Random 11 mg/dl 04/24/2014 22:23 EST [facility] Tot Prot,24h Calc. 550(H) <150 mg/24hr 04/24/2014 22:23 EST [facility] Urine specimen (specimen) URINE / Unknown 04/24/2014 21:30 EST 04/24/2014 21:53 EST Sarita Blount MD URINALYSIS ORDERABLE S Performing Organization Address [facility] Co de Phone Number [facility] [address] [place] [address] * (ABNORMAL) GLUCOSE, GLUCOMETER (04/24/2014 20:36 EST) Glucose, Fingerstick 153(H) 70 - 100 mg/dl 04/24/2014 20:48 EST [facility] Early Breastfeeding Care Specialist ID [id number] 04/24/2014 20:48 EST [facility] Comment:Test Performed by [facility] BLOOD SPECIMEN / Unknown 04/24/2014 20:36 EST 04/24/2014 20:48 EST Haim Méndez MD CHEMISTRY & BLOO D GAS ORDERABLES Performing Organization Address [facility] Co de Phone Number [facility] [address] [place] [address] * (ABNORMAL) GLUCOSE, GLUCOMETER (04/24/2014 16:40 EST) Glucose, Fingerstick 221(H) 70 - 100 mg/dl 04/24/2014 16:41 EST [facility] Early Breastfeeding Care Specialist ID [id number] 04/24/2014 16:41 EST [facility] Comment:Test Performed by [facility] BLOOD SPECIMEN / Unknown 04/24/2014 16:40 EST 04/24/2014 16:41 EST Haim Méndez MD CHEMISTRY & BLOO D GAS ORDERABLES Performing Organization Address City/[facility]/ZIP Co de Phone Number [facility] [address] [place] [address] * (ABNORMAL) GLUCOSE, GLUCOMETER (04/24/2014 15:35 EST) Glucose, Fingerstick 226(H) 70 - 100 mg/dl 04/24/2014 15:37 EST [facility] Early Breastfeeding Care Specialist [place] [id number] 04/24/2014 15:37 EST [facility] Comment:Test Performed by [facility] BLOOD SPECIMEN / Unknown 04/24/2014 15:35 EST 04/24/2014 15:37 EST Haim Méndez MD CHEMISTRY & BLOO D GAS ORDERABLES Performing Organization Address City/[facility] [address]/ZIP Co de Phone Number [facility] [address] [place] [address] * (ABNORMAL) GLUCOSE, GLUCOMETER (04/24/2014 13:30 EST) Glucose, Fingerstick 186(H) 70 - 100 mg/dl 04/24/2014 13:32 EST [facility] Early Breastfeeding Care Specialist ID [id number] 04/24/2014 13:32 EST [facility] Comment:Test Performed by [facility] BLOOD SPECIMEN / Unknown 04/24/2014 13:30 EST 04/24/2014 13:32 EST Haim Méndez MD CHEMISTRY & BLOO D GAS ORDERABLES Performing Organization Address [facility] Co de Phone Number [facility] [address] [place] [address] * (ABNORMAL) GLUCOSE, GLUCOMETER (04/24/2014 12:43 EST) Glucose, Fingerstick 220(H) 70 - 100 mg/dl 04/24/2014 12:46 EST [facility] Early Breastfeeding Care Specialist ID [id number] 04/24/2014 12:46 EST [facility] Comment:Test Performed by [facility] BLOOD SPECIMEN / Unknown 04/24/2014 12:43 EST 04/24/2014 12:46 EST Haim Méndez MD CHEMISTRY & BLOO D GAS ORDERABLES Performing Organization Address City/[facility] [address]/ZIP Co de Phone Number [facility] [address] [place] [address] * (ABNORMAL) GLUCOSE, GLUCOMETER (04/24/2014 10:57 EST) Glucose, Fingerstick 301(H) 70 - 100 mg/dl 04/24/2014 11:01 EST [facility] Early Breastfeeding Care Specialist ID [id number] 04/24/2014 11:01 EST [facility] Comment:[facility] BLOOD SPECIMEN / Unknown 04/24/2014 10:57 EST 04/24/2014 11:01 EST Haim Méndez MD CHEMISTRY & BLOO D GAS ORDERABLES Performing Organization Address [facility] [address]/ZIP Co de Phone Number [facility] [address] [place] [address] * URIC ACID (04/24/2014 7:45 EST) Uric Acid 4.0 2.2 - 7.7 mg/dl 04/24/2014 8:14 EST [facility] Blood specimen (specimen) BLOOD SPECIMEN / Unknown 04/24/2014 7:45 EST 04/24/2014 7:50 EST Sarita Blount MD CHEMISTRY & BLOOD GA S ORDERABLES Performing Organization Address [facility] Co de Phone Number [facility] [address] [place] [address] * (ABNORMAL) FIBRINOGEN (04/24/2014 7:45 EST) Fibrinogen 528(H) 171 - 384 mg/dl 04/24/2014 8:55 EST [facility] Blood specimen (specimen) BLOOD SPECIMEN / Unknown 04/24/2014 7:45 EST 04/24/2014 7:50 EST Sarita Blount MD HEMATOLOGY & PF4 ORD ERABLES Performing Organization Address [facility] [address]/[facility] Co de Phone Number [facility] [address] [place] [address] * (ABNORMAL) LDH (04/24/2014 7:45 EST) LDH 301(L) 313 - 618 U/L 04/24/2014 8:14 EST [facility] Blood specimen (specimen) BLOOD SPECIMEN / Unknown 04/24/2014 7:45 EST 04/24/2014 7:50 EST Sarita Blount MD CHEMISTRY & BLOOD GA S ORDERABLES Performing Organization Address [facility] [address]/[facility] de Phone Number [facility] [address] [place] [address] * (ABNORMAL) AST (04/24/2014 7:45 EST) AST 13(L) 15 - 46 U/L 04/24/2014 8:14 EST [facility] Blood specimen (specimen) BLOOD SPECIMEN / Unknown 04/24/2014 7:45 EST 04/24/2014 7:50 EST Sarita Blount MD CHEMISTRY & BLOOD GA S ORDERABLES Performing Organization Address [facility] [address]/[facility] Phone Number [facility] [address] [place] [address] * ALT (04/24/2014 7:45 EST) ALT 21 <53 U/L 04/24/2014 8:14 EST [facility] Blood specimen (specimen) BLOOD SPECIMEN / Unknown 04/24/2014 7:45 EST 04/24/2014 7:50 EST Sarita Blount MD CHEMISTRY & BLOOD GA S ORDERABLES Performing Organization Address [facility] [address]/[facility] Phone Number [facility] [address] [place] [address] * (ABNORMAL) CREATININE (04/24/2014 7:45 EST) Creatinine 0.40(L) 0.52 - 1.04 mg/dl 04/24/2014 8:14 EST [facility] GFR, Calculated >60 >60 ml/min/1.7 3m2 04/24/2014 8:14 [facility] Blood specimen (specimen) BLOOD SPECIMEN / Unknown 04/24/2014 7:45 EST 04/24/2014 7:50 EST Sarita Blount MD CHEMISTRY & BLOOD GA S ORDERABLES [facility] [address] [place] [address] * (ABNORMAL) HEMAGRAM (04/24/2014 7:45 EST) WBC 17.08(H) 4.0 - 12.4 K/cmm 04/24/2014 8:20 EST [facility] RBC 3.99 3.86 - 5.04 M/cmm 04/24/2014 8:20 [facility] Hemoglobin 12.7 11.6 - 15.2 gm/dl 04/24/2014 8:20 [facility] HCT 37.3 34.9 - 44.4 % 04/24/2014 8:20 [facility] MCV 93 81 - 98 fl 04/24/2014 8:20 [facility] MCH 31.8 26.7 - 33.3 pg 04/24/2014 8:20 [facility] MCHC 34.0 32.1 - 35.9 gm/dl 04/24/2014 8:20 [facility] PLT 326(H) 141 - 320 K/cmm 04/24/2014 8:20 [facility] RDW-CV 12.8 11.7 - 14.6 % 04/24/2014 8:20 [facility] Blood specimen (specimen) BLOOD SPECIMEN / Unknown 04/24/2014 7:45 EST 04/24/2014 7:50 EST Sarita Blount MD HEMATOLOGY & PF4 ORD ERABLES [facility] [address] [place] [address] * (ABNORMAL) GLUCOSE, GLUCOMETER (04/24/2014 7:27 EST) Glucose, Fingerstick 205(H) 70 - 100 mg/dl 04/24/2014 7:30 [facility] Early Breastfeeding Care Specialist ID [id number] 04/24/2014 7:30 [facility] Comment:Test Performed by rsing Services BLOOD SPECIMEN / Unknown 04/24/2014 7:27 EST 04/24/2014 7:30 EST Haim Méndez MD CHEMISTRY & BLOO D GAS ORDERABLES Performing Organization Address City/[facility] [address]/ZIP Co de Phone Number [facility] [address] [place] [address] * (ABNORMAL) GLUCOSE, GLUCOMETER (04/24/2014 0:26 EST) Glucose, Fingerstick 213(H) 70 - 100 mg/dl 04/24/2014 0:27 [facility] Early Breastfeeding Care Specialist ID [id number] 04/24/2014 0:27 [facility] Comment:[facility] BLOOD SPECIMEN / Unknown 04/24/2014 0:26 EST 04/24/2014 0:27 EST Haim Méndez MD CHEMISTRY & BLOO D GAS ORDERABLES Performing Organization Address City/[facility] [address]/[facility] Co de Phone Number [facility] [address] [place] [address] * INPATIENT ADD-ON (04/23/2014 23:10 EST) Tests to be added CRP DIFFERENTIAL 04/23/2014 23:10 [facility] Comment:CRP Number for problems Not Given 04/23/2014 23:22 [facility] Accession number [id number] 04/23/2014 23:22 [facility] TOPOGRAPHY UNKNOWN / Unknown 04/23/2014 23:10 EST 04/23/2014 23:22 EST Anthony Monterroso MD HEMATOLOGY & PF4 ORDERABLES Performing Organization Address City/[facility] [address]/ZIP Co de Phone Number [facility] [address] [place] [address] * (ABNORMAL) GLUCOSE, GLUCOMETER (04/23/2014 22:09 EST) Glucose, Fingerstick 256(H) 70 - 100 mg/dl 04/23/2014 22:10 EST [facility] Early Breastfeeding Care Specialist ID [id number] 04/23/2014 22:10 EST [facility] Comment:Test Performed by [facility] BLOOD SPECIMEN / Unknown 04/23/2014 22:09 EST 04/23/2014 22:10 EST Haim Méndez MD CHEMISTRY & BLOO D GAS ORDERABLES [facility] [address] [place] [address] * UA REFLEX (04/23/2014 21:31 EST) UA Billing Microscopic not indicated. 04/23/2014 22:11 EST [facility] URINE / Unknown 04/23/2014 2 1:31 EST 04/23/2014 21:52 EST Sarita Blount MD URINALYSIS ORDERABLE S Performing Organization Address [facility] Co de Phone Number [facility] [address] [place] [address] * CREATININE, URINE RANDOM (04/23/2014 21:31 EST) Creatinine, Urn [place] 16.3 mg/dl 04/23/2014 22:26 EST [facility] Urine specimen (specimen) URINE / Unknown 04/23/2014 21:31 EST 04/23/2014 21:53 EST Sarita Blount MD URINALYSIS ORDERABLE S Performing Organization Address [facility] Co de Phone Number [facility] [address] [place] [address] * TOTAL PROTEIN, URINE RANDOM (04/23/2014 21:31 EST) Tot Prot,Ur Random 10 mg/dl 04/23/2014 22:26 EST [facility] Urine specimen (specimen) URINE / Unknown 04/23/2014 21:31 EST 04/23/2014 21:53 EST Sarita Blount MD URINALYSIS ORDERABLE S Performing Organization Address [facility] Co de Phone Number [facility] [address] [place] [address] * URINE CULTURE IF UA POSITIVE - NON POCT URINALYSIS ONLY (04/23/2014 21:31 EST) Culture if Indicated Culture not indicated by urinalysis results. 04/23/2014 22:11 [facility] Urine specimen (specimen) TOPOGRAPHY UNKNOWN / Unknown 04/23/2014 21:31 EST 04/23/2014 21:52 EST Sarita Blount MD MICROBIOLOGY - GENER AL ORDERABLES Performing Organization Address [facility] Co de Phone Number [facility] [address] [place] [address] * (ABNORMAL) URINALYSIS (04/23/2014 21:31 EST) Color, UA Yellow 04/23/2014 22:11 [facility] Clarity, UA Clear 04/23/2014 22:11 [facility] Glucose, UA 3+(A) Neg 04/23/2014 22:11 [facility] Bilirubin, UA Neg Neg 04/23/2014 22:11 [facility] Ketones, UA Trace(A) Neg 04/23/2014 22:11 [facility] Specific [place], Urine 1.015 1.001 - 1.035 04/23/2014 22:11 [facility] Blood, UA Neg Neg 04/23/2014 22:11 [facility] pH, UA 5.5 4.6 - 8.0 04/23/2014 22:11 [facility] Protein, UA Neg Neg 04/23/2014 22:11 [facility] Urobilinogen, UA 0.2 0.2 - 1.0 E.U./dl 04/23/2014 22:11 [facility] Nitrite, UA Neg Neg 04/23/2014 22:11 [facility] Leuk Esterase Neg Neg 04/23/2014 22:11 [facility] Urine specimen (specimen) URINE / Unknown 04/23/2014 21:31 EST 04/23/2014 21:52 EST Sarita Blount MD URINALYSIS ORDERABLE S Performing Organization Address City/State/[facility] Co de Phone Number [facility] [address] [place] [address] * (ABNORMAL) DIFFERENTIAL (04/23/2014 21:29 EST) Neutrophils 64.0 45.5 - 79.7 % 04/23/2014 23:37 [facility] % Bands 1.0 % 04/23/2014 23:37 [facility] Lymphocytes 30.0 15.0 - 46.8 % 04/23/2014 23:37 [facility] Monocytes 4.0 1.8 - 12.0 % 04/23/2014 23:37 [facility] Eosinophils 1.0 0.6 - 6.9 % 04/23/2014 23:37 [facility] ABS Neutrophils 13.03(H) 2.20 - 8.85 K/cmm 04/23/2014 23:37 [facility] ABS Bands 0.20 K/cmm 04/23/2014 23:37 [facility] ABS Lymphs 6.11(H) 1.09 - 3.30 K/cmm 04/23/2014 23:37 [facility] ABS Monocytes 0.81(H) 0.1 - 0.8 K/cmm 04/23/2014 23:37 [facility] ABS Eosinophils 0.20 0.03 - 0.61 K/cmm 04/23/2014 23:37 [facility] Type of Diff: Manual 04/23/2014 23:37 [facility] BLOOD SPECIMEN / Unknown 04/23/2014 21:29 EST 04/23/2014 22:26 EST Sarita Blount MD HEMATOLOGY & PF4 ORD ERABLES Performing Organization Address City/[facility] [address]/[facility] Co de Phone Number [facility] [address] [place] [address] * (ABNORMAL) C-REACTIVE PROTEIN (04/23/2014 21:29 EST) C-Reactive Protein 1.1(H) <1.0 mg/dl 04/23/2014 23:38 EST [facility] BLOOD SPECIMEN / Unknown 04/23/2014 21:29 EST 04/23/2014 22:26 EST Sarita Blount MD CHEMISTRY & BLOOD GA S ORDERABLES Performing Organization Address [facility] Co de Phone Number [facility] [address] [place] [address] * BLOOD BANK SPECIMEN HOLD (04/23/2014 21:29 EST) Hold BB Spec will exp at 23:59, 3 days from collect date [facility] Comment:specimen was drawn o n 04/23/2014 Blood specimen (specimen) 04/23/2014 21:29 EST Sarita Blount MD BLOOD BANK TESTS Performing Organization Address [facility] Co de Phone Number [facility] * LDH (04/23/2014 21:29 EST) LDH 355 313 - 618 U/L 04/23/2014 22:55 EST [facility] Blood specimen (specimen) BLOOD SPECIMEN / Unknown 04/23/2014 21:29 EST 04/23/2014 22:26 EST Sarita Blount MD CHEMISTRY & BLOOD GA S ORDERABLES Performing Organization Address [facility]/ZIP Co de Phone Number [facility] [address] [place] [address] * (ABNORMAL) FIBRINOGEN (04/23/2014 21:29 EST) Fibrinogen 587(H) 171 - 384 mg/dl 04/23/2014 22:43 EST [facility] Blood specimen (specimen) BLOOD SPECIMEN / Unknown 04/23/2014 21:29 EST 04/23/2014 22:26 EST Sarita Blount MD HEMATOLOGY & PF4 ORD ERABLES Performing Organization Address [facility] de Phone Number [facility] [address] [place] [address] * ALT (04/23/2014 21:29 EST) ALT 20 <53 U/L 04/23/2014 22:55 EST [facility] Blood specimen (specimen) BLOOD SPECIMEN / Unknown 04/23/2014 21:29 EST 04/23/2014 22:26 EST Sarita Blount MD CHEMISTRY & BLOOD GA S ORDERABLES Performing Organization Address [facility] de Phone Number [facility] [address] [place] [address] * AST (04/23/2014 21:29 EST) AST 15 15 - 46 U/L 04/23/2014 22:55 EST [facility] Blood specimen (specimen) BLOOD SPECIMEN / Unknown 04/23/2014 21:29 EST 04/23/2014 22:26 EST Sarita Blount MD CHEMISTRY & BLOOD GA S ORDERABLES Performing Organization Address [facility] de Phone Number [facility] [address] [place] [address] * URIC ACID (04/23/2014 21:29 EST) Uric Acid 3.8 2.2 - 7.7 mg/dl 04/23/2014 22:55 EST [facility] Blood specimen (specimen) BLOOD SPECIMEN / Unknown 04/23/2014 21:29 EST 04/23/2014 22:26 EST Sarita Blount MD CHEMISTRY & BLOOD GA S ORDERABLES Performing Organization Address City/[facility] [address]/ZIP Co de Phone Number [facility] [address] [place] [address] * (ABNORMAL) CREATININE (04/23/2014 21:29 EST) Creatinine 0.40(L) 0.52 - 1.04 mg/dl 04/23/2014 22:55 EST [facility] GFR, Calculated >60 >60 ml/min/1.7 3m2 04/23/2014 22:55 EST [facility] Blood specimen (specimen) BLOOD SPECIMEN / Unknown 04/23/2014 21:29 EST 04/23/2014 22:26 EST Sarita Blount MD CHEMISTRY & BLOOD GA S ORDERABLES Performing Organization Address [facility] Co de Phone Number [facility] [address] [place] [address] * (ABNORMAL) BUN (04/23/2014 21:29 EST) BUN 7(L) 10 - 26 mg/dl 04/23/2014 22:55 EST [facility] Blood specimen (specimen) BLOOD SPECIMEN / Unknown 04/23/2014 21:29 EST 04/23/2014 22:26 EST Sarita Blount MD CHEMISTRY & BLOOD GA S ORDERABLES Performing Organization Address City/[facility] [address]/[facility] Co de Phone Number [facility] [address] [place] [address] * (ABNORMAL) HEMAGRAM (04/23/2014 21:29 EST) WBC 20.35(H) 4.0 - 12.4 K/cmm 04/23/2014 22:39 EST [facility] RBC 4.48 3.86 - 5.04 M/cmm 04/23/2014 22:39 [facility] Hemoglobin 14.3 11.6 - 15.2 gm/dl 04/23/2014 22:39 [facility] HCT 41.7 34.9 - 44.4 % 04/23/2014 22:39 [facility] MCV 93 81 - 98 fl 04/23/2014 22:39 EST [facility] MCH 31.9 26.7 - 33.3 pg 04/23/2014 22:39 [facility] MCHC 34.2 32.1 - 35.9 gm/dl 04/23/2014 22:39 [facility] PLT 334(H) 141 - 320 K/cmm 04/23/2014 22:39 [facility] RDW-CV 12.6 11.7 - 14.6 % 04/23/2014 22:39 [facility] Blood specimen (specimen) BLOOD SPECIMEN / Unknown 04/23/2014 21:29 EST 04/23/2014 22:26 EST Sarita Blount MD HEMATOLOGY & PF4 ORD ERABLES Performing Organization Address City/State/[facility] Co de Phone Number [facility] [address] [place] [address] documented in this encounter Visit Diagnoses Diagnosis [...] in third trimester Type 2 diabetes mellitus ([facility]) Type II or unspecified type diabetes [...] Units, subcutaneous, NOW X1, 1 dose, On [place] 04/25/14 at 0145, Routine Given 04/25/2014 1:37 EST 10 Units insulin aspart (NOVOLOG FLEXPEN) injection 15 Units 15 Units, subcutaneous, NOW X1, 1 dose, On 04/24/14 at 1015, Routine Given 04/24/2014 9:45 EST 15 Units Abdomin al Tissue insulin aspart (NOVOLOG FLEXPEN) injection 15 Units 15 Units, subcutaneous, 3 TIMES DAILY WITH MEALS, First dose (after last modification) on [place] 04/25/14 at 1200, Until Discontinued, Routine Given 04/27/2014 13:02 EST 15 Units Abdominal Tissue Given by Other 04/27/2014 7:46 EST 15 Units Given 04/26/2014 21:23 EST 15 Units insulin aspart (NOVOLOG FLEXPEN) injection 20 Units 20 Units, subcutaneous, DAILY BEFORE BREAKFAST, First dose (after last modification) on [place] 04/25/14 at 0700, Until Discontinued, Routine Given 04/25/2014 7:24 EST 20 Units insulin aspart (NOVOLOG FLEXPEN) injection 20 Units 20 Units, subcutaneous, DAILY BEFORE DINNER, First dose (after last modification) on [facility] 04/24/14 at 1715, Until Discontinued, Routine Given 04/24/2014 20:37 EST 20 Units insulin aspart (NOVOLOG FLEXPEN) injection subcutaneous, 3 TIMES DAILY WITH MEALS, First dose on [facility] 04/24/14 at 0800, Until Discontinued, Routine Given 04/24/2014 8:37 EST 3 Units Abdominal Tissue insulin aspart (NOVOLOG FLEXPEN) injection subcutaneous, 3 TIMES DAILY WITH MEALS, First dose on [place] 04/25/14 at 1200, Until Discontinued, Routine Given 04/27/2014 12:59 EST 1 Units Abdominal Tissue Given 04/25/2014 15:28 EST 1 Units insulin glargine (LANTUS SOLOSTAR) injection pen 15 Units 15 Units, subcutaneous, ONCE DAILY L.A. INSULIN, First dose on [facility] 04/25/14 at 2000, Until Discontinued, Routine Given [...] 03/31 documented in this encounter Care Teams Boat Deckhand Relationship Specialty Start Date End Date Annette Sidhu, PANELBEATER [address] [place] [phone] PCP - General 03/19/13 07/06/19 documented as of this encounter
--- OUTSIDE RECORDS SUMMARY | 2024-02-17 18:41 | XMS_ITS | Encounter Summary ---
Author Organization [facility] Address [address] [place] [address] Care Team Providers Care Stone Layer Name Role Phone Annette Sidhu APRN Primary Care Provider [phone] Encounter Details Date Type Department Care Team (Late st Contact Info) Description 03/08/2014 15:48 EST - 03/08/2014 23:59 [facility] Hospital Encounter [facility] [phone] Haim Méndez MD [address] [place] [address], [facility] [address] [place] [phone] Discharge Disposition: Home or Self Care Social [...] Component Type 2 diabetes mellitus ([facility]) 8.7(07/07/2015 5:05 EST) Annmarie Lopez documented as of this encounter Procedures Procedure Name Priority Date/Time Associated Diagnosis Comments PRISON FOLLOW-UP 05/07/2014 9:13 EST PRISON BIOPHYSICAL PROFILE 04/30/2014 11:52 EST PRISON BIOPHYSICAL PROFILE 04/23/2014 15:52 EST PRISON FOLLOW-UP 04/09/2014 12:30 EST documented in this encounter Results * PRISON FOLLOW-UP (05/07/2014 9:13 EST) Anatomical Region Laterality [...] ?3,191 g 89% Gibson Calculated by: Hadlock (JXP-US-LG-FL) EFW (lb) ?? 7 lb EFW (oz) ?? 1 oz Cephalic index 0.74 ?7% Chitty HC / AC ?0.88 FL / BPD ?? 0.84 FL / AC ?0.20 MVP ?7.0 cm ZHENG ?19.7 cm FHR ?160 bpm Head / Face / Neck [employer] Teacher 4.7 mm Biophysical Profile Qualitative AFV: 2. breathing movements: 2. Gross body movements: 2. tone: 2. Biophysical profile score: . DVD number 935, Duration: 9 minutes. Non Stress Test Reactive FHR: 2 - normal. Baseline rate 160 bpm. Method ======== Transabdominal ultrasound examination, Voluson E8. Limited by maternal habitus. Impression [id number] Follow-up obstetrical ultrasound This is a garcia gestation. biometry is consistent with prior dating. Except where noted above, the anatomy was not reviewed in detail as this is a follow-up study and the anatomy was previously assessed. Normal fluid and movement are noted. 86046 Biophysical Profile (including NST) See BPP score [...] 3,191 g 89% Gibson Calculated by: Hadlock (ORR-BY-MD-FL) EFW (lb) 7 lb EFW (oz) 1 oz Cephalic index 0.74 7% Chitty HC / AC 0.88 FL / BPD 0.84 FL / AC 0.20 MVP 7.0 cm ZHENG 19.7 cm FHR 160 bpm Head / Face / Neck [employer] Teacher 4.7 mm Biophysical Profile Qualitative AFV: 2. breathing movements: 2. Gross body movements: 2. tone: 2. Biophysical profile score: . DVD number 935, Duration: 9 minutes. Non Stress Test Reactive FHR: 2 - normal. Baseline rate 160 bpm. Method ======== Transabdominal ultrasound examination, Voluson E8. Limited by maternal habitus. Impression [id number] Follow-up obstetrical ultrasound This is a garcia gestation. biometry is consistent with prior dating. Except where noted above, the anatomy was not reviewed in detail as this is a follow-up study and the anatomy was previously assessed. Normal fluid and movement are noted. 82881 Biophysical Profile (including NST) See BPP score above. FHR baseline is 160- to L T D after APV for longer monitoring due to increased baseline. Follow-up Follow-up with weekly BPP's. Comment ========= This follow-up has been scheduled. Eduardo Friend MD [facility] * PRISON BIOPHYSICAL PROFILE (04/30/2014 11:52 EST) Anatomical Region [...] Transabdominal ultrasound examination, Voluson E8. Sufficient. Impression [id number] Biophysical Profile (including NST) This is a [...] 2. Biophysical profile score: . DVD number 111. Non Stress Test Reactive FHR: 2 - normal. Baseline rate 150 bpm. Method ======== Transabdominal ultrasound examination, Voluson E8. Sufficient. Impression [id number] Biophysical Profile (including NST) This is a garcia transverse lie with head toward maternal right. Please see BPP score above. Follow-up Recommend follow-up with weekly BPPs (or semi-weekly NSTs with weekly fluid checks) and growth studies every 4 weeks. Comment ========= This follow-up has been scheduled. Eduardo CARDONA [facility] * PRISON BIOPHYSICAL PROFILE (04/23/2014 15:52 EST) Anatomical Region [...] ultrasound examination, Voluson E8. Good view. Impression [id number] Biophysical Profile (without NST) This is a [...] ultrasound examination, Voluson E8. Good view. Impression [id number] Biophysical Profile (without NST) This is a garcia gestation. See BPP score above. Follow-up Follow-up with weekly BPP's. Comment ========= This follow-up has been scheduled. Eduardo Friend MD [facility] * PRISON FOLLOW-UP (04/09/2014 12:30 EST) Anatomical Region Laterality [...] ?2,064 g 69% Gibson Calculated by: Hadlock (IWR-PC-LV-FL) EFW (lb) ?? 4 lb EFW (oz) ?? 9 oz Cephalic index 0.72 ?4% Chitty HC / AC ?0.94 FL / BPD ?? 0.85 FL / AC ?0.21 MVP ?6.0 cm ZHENG ?17.1 cm FHR ?152 bpm Head / Face / Neck [employer] Teacher 5.5 mm Method ======== Transabdominal ultrasound examination, Voluson E8. Sufficient. Impression 64627 Follow-up obstetrical ultrasound This is a garcia [...] 2,064 g 69% Gibson Calculated by: Hadlock (AZY-VG-PC-FL) EFW (lb) 4 lb EFW (oz) 9 oz Cephalic index 0.72 4% Chitty HC / AC 0.94 FL / BPD 0.85 FL / AC 0.21 MVP 6.0 cm ZHENG 17.1 cm FHR 152 bpm Head / Face / Neck [employer] Teacher 5.5 mm Method ======== Transabdominal ultrasound examination, Voluson E8. Sufficient. Impression [id number] Follow-up obstetrical ultrasound This is a garcia gestation. biometry is consistent with prior dating. Except where noted above, the anatomy was not reviewed in detail as this is a follow-up study and the anatomy was previously assessed. Normal fluid and movement are noted. Follow-up Follow-up as clinically indicated. Eduardo W Friend MD IMG [facility] ORDERABLE S documented in this encounter Visit Diagnoses Not on filedocumented in this encounter Care Teams Stone Layer Relationship Specialty Start Date End Date Annette Sidhu APRN [address] [place] [phone] PCP - General 03/19/13 07/06/19 documented as of this encounter
--- OUTSIDE RECORDS SUMMARY | 2024-02-17 18:41 | XMS_ITS | Encounter Summary ---
Author Organization [facility] Address [address] [place] [address] Care Team Providers Care Translator Name Role Phone Annette Sidhu APRN Primary Care Provider [phone] Reason for Visit * Reason Onset Date Comments Routine Visit 04/13/2014 Encounter Details Date Type Department Care Team (Late st Contact Info) Description 04/13/2014 Orders Only [facility] [place] [address] Eduardo Friend MD [address] [place] [address] [place] [phone] Supervision of other high-risk (V23.89) (Primary Dx) [...] 2 diabetes mellitus ([facility]) 8.7(07/07/2015 5:05 EST) No Annmarie Vigil documented as of this encounter Visit Diagnoses Diagnosis Supervision of other high-risk (V23.89)- Primary Supervision of other high-risk documented in this encounter Care Teams Translator Relationship Specialty Start Date End Date Annette Sidhu APRN [address] [place] [phone] PCP - General 03/19/13 07/06/19 documented as of this encounter
--- OUTSIDE RECORDS SUMMARY | 2024-02-17 18:41 | XMS_ITS | Encounter Summary ---
Author Organization [facility] Address [address] [place] [address] Care Team Providers Care Settlement Technician Name Role Phone Annette Sidhu APRN Primary Care Provider [phone] Encounter Details Date Type Department Care Team (Latest Contact Info) Description 04/09/2014 14:40 EST - 04/09/2014 23:59 [facility] Hospital Encounter [facility] [phone] Khalida Quiñones MD Discharge Disposition: Home or [...] Code Departure Means Destination Home or Self Half-Way documented in this encounter Plan of Treatment Not on file documented as of this encounter Goals Goal Patient Goal Type Associated Problems Recent Progress Patient-Stated? Author HEMOGLOBIN A1C < 7.0 Result Component Type 2 diabetes mellitus ([facility]) 8.7(07/07/2015 5:05 EST) No Annmarie Vigil documented as of this encounter Visit Diagnoses Not on filedocumented in this encounter Care Teams Settlement Technician Relationship Specialty Start Date End Date Annette Sidhu APRN [address] [place] [phone] PCP - General 03/19/13 07/06/19 documented as of this encounter
--- OUTSIDE RECORDS SUMMARY | 2024-02-17 18:41 | XMS_ITS | Encounter Summary ---
Author Organization [facility] Address [address] [place] [address] Care Team Providers Care French Cord Binder Name Role Phone Annette Sidhu APRN Primary Care Provider [phone] Reason for Visit * Reason Onset Date Comments Blood Glucose Review 04/14/2014 Encounter Details Date Type Department Care Team (Late st Contact Info) Description 04/14/2014 Telephone [facility] Obstetrics & Midwifery - [address] [address] Cary Christensen RN Blood Glucose Review Social [...] message left requesting phone call back to [facility] RN line. documented in this encounter Plan of Treatment Not on file documented as of this encounter Goals Goal Patient Goal Type Associated Problems Recent Progress Patient-Stated? Author HEMOGLOBIN A1C < 7.0 Result Component Type 2 diabetes mellitus ([facility]) 8.7(07/07/2015 5:05 EST) No Annmarie Vigil documented as of this encounter Visit Diagnoses Not on filedocumented in this encounter Care Teams French Cord Binder Relationship Specialty Start Date End Date Annette Sidhu APRN [address] [place] [phone] PCP - General 03/19/13 07/06/19 documented as of this encounter
--- OUTSIDE RECORDS SUMMARY | 2024-02-17 18:41 | XMS_ITS | Encounter Summary ---
Author Organization [facility] Address [address] [place] [address] Care Team Providers Care Billing Coordinator Name Role Phone Annette Sidhu APRN Primary Care Provider Encounter Details Date Type Department Care Team (Late st Contact Info) Description 04/09/2014 10:29 EST - 04/09/2014 14:39 [facility] Hospital Encounter [facility] [phone] Haim Méndez MD [address] [place] [address], [facility] [phone] Discharge Disposition: Home or Self Care Social [...] 2 diabetes mellitus ([facility]) 8.7(07/07/2015 5:05 EST) No Annmarie Vigil documented as of this encounter Visit Diagnoses Not on filedocumented in this encounter Care Teams Billing Coordinator Relationship Specialty Start Date End Date Annette Sidhu APRN [address] [place] [phone] PCP - General 03/19/13 07/06/19 documented as of this encounter
--- OUTSIDE RECORDS SUMMARY | 2024-02-17 18:41 | XMS_ITS | Encounter Summary ---
Author Organization [facility] Address [address] [place] [address] Care Team Providers Care Historic Interpreter Name Role Phone Annette Sidhu APRN Primary Care Provider [phone] Reason for Visit * Reason Comments Routine Visit Encounter Details Date Type Department Care Team (Late st Contact Info) Description 04/16/2014 9:40 EST Routine [facility] Obstetrics & [place] [address] Eduardo Friend MD [address] [place] [address] [place] [address] GA: [id number] Social History Tobacco Use Types [...] for T21, T13, T18 Influenza vaccination 02/22/2014 INTERMEDIATE Detailed: marginal umbilical cord insertion Rhogam given [...] labs Opthalmology- 08/2013 TSH- 1.06 HgbA1c- 7.4 INTERMEDIATE Detailed - Marginal cord insertion echo - [...] 1 week(s). Seen with Dr. Stevenson. Eduardo rFiend MD documented in this encounter Miscellaneous Notes [...] labs Opthalmology- 08/2013 TSH- 1.06 HgbA1c- 7.4 INTERMEDIATE Detailed - Marginal cord insertion echo - [...] for T21, T13, T18 Influenza vaccination 02/22/2014 INTERMEDIATE Detailed: marginal umbilical cord insertion Rhogam given 02/22/2014 Tdap vaccination 04/09/14 documented in this encounter Plan of Treatment Not on file documented as of this encounter Goals Goal Patient Goal Type Associated Problems Recent Progress Patient-Stated? Author HEMOGLOBIN A1C < 7.0 Result Component Type 2 diabetes mellitus ([facility]) 8.7(07/07/2015 5:05 EST) No Annmarie Vigil documented as of this encounter Results * HEMOGLOBIN A1C (04/16/2014 12:02 EST) Hemoglobin A1C 7.0 % 04/16/2014 15:23 EST [facility] Comment: Reference Range: <5.7% Normal 5.7-6.4% Increased risk for diabetes =>6.5% Diagnostic for diabetes (if confirmed) The A1c goal for non adults in general is <7%. The A1c goal for selected patients may be significantly lower than 7% if this can be achieved without significant hypoglycemia or other adverse effects of treatment. Est Avg Glucose 154 mg/dl 4 15:23 EST [facility] Comment: eAG represents the A1c result expressed as average glucose in mg/dl. 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
--- OUTSIDE RECORDS SUMMARY | 2024-02-17 18:41 | XMS_ITS | Encounter Summary ---
Author Organization [facility] Address [address] [place] [address] Care Team Providers Care Stud Beef Cattle Farmer Name Role Phone Annette Sidhu APRN Primary Care Provider [phone] Reason for Visit * Reason Onset Date Comments Appointment Related 03/09/2014 Encounter Details Date Type Department Care Team (Late st Contact Info) Description 03/09/2014 Telephone [facility] Upper Extremity Program - [address] [place], [place] [id number] Khalida Quiñones MD Appointment Related Social History [...] Type 2 diabetes mellitus ([facility]) 8.7(07/07/2015 5:05 EST) No Annmarie Vigil documented as of this encounter Visit Diagnoses Not on filedocumented in this encounter Care Teams Stud Beef Cattle Farmer Relationship Specialty Start Date End Date Annette Sidhu APRN [address] [place] [phone] PCP - General 03/19/13 07/06/19 documented as of this encounter
--- OUTSIDE RECORDS SUMMARY | 2024-02-17 18:41 | XMS_ITS | Encounter Summary ---
Author Organization [facility] Address [address] [place] [address] Care Team Providers Care Leadership Recruiter Name Role Phone Annette Sidhu APRN Primary Care Provider [phone] Reason for Visit * Reason Comments Non-stress Test Encounter Details Date Type Department Care Team (Late st Contact Info) Description 04/16/2014 10:00 EST Nurse Only [facility] Obstetrics & Midwifery - [address] [address] Unknown, Provider, Nurse, Bambi Diabetes mellitus, antepartum(648.03) [...] Type 2 diabetes mellitus ([facility]) 8.7(07/07/2015 5:05 EST) Annmarie Lopez documented as of this encounter Visit Diagnoses Diagnosis Diabetes mellitus, antepartum(648.03)- Primary Diabetes mellitus, antepartum Type 2 diabetes mellitus ([facility]) Type II or unspecified type diabetes mellitus without mention of complication, not stated as uncontrolled Chronic hypertension with exacerbation during in third trimester documented in this encounter Care Teams Leadership Recruiter Relationship Specialty Start Date End Date Annette Sidhu APRN [address] [place] [phone] PCP - General 03/19/13 07/06/19 documented as of this encounter
--- OUTSIDE RECORDS SUMMARY | 2024-02-17 18:41 | XMS_ITS | Encounter Summary ---
Author Organization [facility] Address [address] [place] [address] Care Team Providers Care Film Sound Engineer Name Role Phone Annette Sidhu APRN Primary Care Provider Encounter Details Date Type Department Care Team (Latest Contact Info) Description 02/22/2014 14:43 EDT - 02/22/2014 20:10 EDT [place] [address] Unknown, Provider, Eduardo Friend MD [address] [place] [address] [place] [phone] Discharge Disposition: Auto Discharge Social History Tobacco [...] Component Type 2 diabetes mellitus ([facility]) 8.7(07/07/2015 5:05 EST) Annmarie Lopez documented as of this encounter Visit Diagnoses Not on filedocumented in this encounter Care Teams Film Sound Engineer Relationship Specialty Start Date End Date Annette Sidhu APRN [address] [place] [phone] PCP - General 03/19/13 07/06/19 documented as of this encounter
--- OUTSIDE RECORDS SUMMARY | 2024-02-17 18:41 | XMS_ITS | Encounter Summary ---
Author Organization [facility] Address [address] [place] [address] Care Team Providers Care Pipe Organ Installer Name Role Phone Annette Sidhu APRN Primary Care Provider [phone] Reason for Visit * Reason Onset Date Comments Medication Management 04/19/2014 Encounter Details Date Type Department Care Team (Late st Contact Info) Description 04/19/2014 Orders Only [facility] Obstetrics & Midwifery - [address] [address] Michelle Devine RN Social History Tobacco Use [...] Notes * Michelle Devine, RN - 04/19/2014 2995 EST Orders entered for Lantus insulin to start with 35 units at HS, and Novolog 8 units with each meal to begin, phoned to [facility] per Dr. Friend. documented in this encounter Plan of Treatment Not on file documented as of this encounter Goals Goal Patient Goal Type Associated Problems Recent Progress Patient-Stated? Author HEMOGLOBIN A1C < 7.0 Result Component Type 2 diabetes mellitus ([facility]) 8.7(07/07/2015 5:05 EST) No Annmarie Vigil documented as of this encounter Visit Diagnoses Not on filedocumented in this encounter Care Teams Pipe Organ Installer Relationship Specialty Start Date End Date Annette Sidhu, TRANSPORTATION ASSISTANT [address] [place] [phone] PCP - General 03/19/13 07/06/19 documented as of this encounter
--- OUTSIDE RECORDS SUMMARY | 2024-02-17 18:41 | XMS_ITS | Encounter Summary ---
Author Organization [facility] Address [address] [place] [address] Care Team Providers Care First Line Production Supervisor Name Role Phone Annette Sidhu APRN Primary Care Provider [phone] Reason for Visit * Reason Comments Non-stress Test Encounter Details Date Type Department Care Team (Late st Contact Info) Description 04/30/2014 11:00 EST Nurse Only [facility] Obstetrics & [place] [address] Eduardo Friend MD [address] [place] [address] [place] [phone] Nurse, Bambi Diabetes mellitus, antepartum(648.03) (Primary Dx); [...] Type 2 diabetes mellitus ([facility]) 8.7(07/07/2015 5:05 EST) No Annmarie Vigil documented as of this encounter Visit Diagnoses Diagnosis Diabetes mellitus, antepartum(648.03)- Primary Diabetes mellitus, antepartum Chronic hypertension with exacerbation during in third trimester documented in this encounter Care Teams First Line Production Supervisor Relationship Specialty Start Date End Date Annette Sidhu APRN [address] [place] [phone] PCP - General 03/19/13 07/06/19 documented as of this encounter
--- OUTSIDE RECORDS SUMMARY | 2024-02-17 18:41 | XMS_ITS | Encounter Summary ---
Author Organization [facility] Address [address] [place] [address] Care Team Providers Care Earth Burner Name Role Phone Annette Sidhu APRN Primary Care Provider [phone] Encounter Details Date Type Department Care Team (Late st Contact Info) Description 04/16/2014 13:19 EST - 04/16/2014 23:59 [facility] Hospital Encounter [facility] [phone] Haim Méndez MD [address] [place] [address], [address] [place] [phone] Discharge Disposition: Home or Self Care Social [...] Code Departure Means Destination Home or Self Halfway documented in this encounter Plan of Treatment Not on file documented as of this encounter Goals Goal Patient Goal Type Associated Problems Recent Progress Patient-Stated? Author HEMOGLOBIN A1C < 7.0 Result Component Type 2 diabetes mellitus ([facility]) 8.7(07/07/2015 5:05 EST) No Annmarie Vigil documented as of this encounter Visit Diagnoses Not on filedocumented in this encounter Care Teams Earth Burner Relationship Specialty Start Date End Date Annette Sidhu APRN [address] [place] [phone] PCP - General 03/19/13 07/06/19 documented as of this encounter
--- OUTSIDE RECORDS SUMMARY | 2024-02-17 18:41 | XMS_ITS | Encounter Summary ---
Author Organization [facility] Address [address] [place] [address] Care Team Providers Care Contracts Paralegal Name Role Phone Annette Sidhu APRN Primary Care Provider [phone] Reason for Visit * Reason Onset Date Comments Blood Glucose Review 04/13/2014 Encounter Details Date Type Department Care Team (Late st Contact Info) Description 04/13/2014 Telephone [facility] Obstetrics & Midwifery - [address] [address] Cary Christensen RN Blood Glucose Review Social [...] voicemail message requestingpatient call M office back. [facility] distribution estimator phone number given. documented in this encounter Plan of Treatment Not on file documented as of this encounter Goals Goal Patient Goal Type Associated Problems Recent Progress Patient-Stated? Author HEMOGLOBIN A1C < 7.0 Result Component Type 2 diabetes mellitus ([facility]) 8.7(07/07/2015 5:05 EST) No Annmarie Vigil documented as of this encounter Visit Diagnoses Not on filedocumented in this encounter Care Teams Contracts Paralegal Relationship Specialty Start Date End Date Annette Sidhu APRN [address] [place] [phone] PCP - General 03/19/13 07/06/19 documented as of this encounter
--- OUTSIDE RECORDS SUMMARY | 2024-02-17 18:42 | XMS_ITS | Encounter Summary ---
Author Organization [facility] Address [address] [place] [address] Care Team Providers Care Lead Loader Name Role Phone SidhuErnst puckettjayant Kay APRN Primary Care Provider [phone] Reason for Visit * Reason Onset Date Comments Results 12/23/2013 Encounter Details Date Type Department Care Team (Late st Contact Info) Description 12/23/2013 Telephone [facility] Obstetrics & Midwifery - [address] [address] Cary Christensen, RN Results Social History Tobacco [...] Encounter - Cary Christensen RN - 12/23/2013 9778 EDT Return call from [place] asking about [place] results, discussed low risk results, patient wanted [...] Component Type 2 diabetes mellitus ([facility]) 8.7(07/07/2015 5:05 EST) Annmarie Lopez documented as of this encounter Visit Diagnoses Not on filedocumented in this encounter Care Teams Lead Loader Relationship Specialty Start Date End Date Annette Sidhu APRN [address] [place] [phone] PCP - General 03/19/13 07/06/19 documented as of this encounter
--- OUTSIDE RECORDS SUMMARY | 2024-02-17 18:42 | XMS_ITS | Encounter Summary ---
Author Organization [facility] Address [address] [place] [address] Care Team Providers Care Machining Manager Name Role Phone Annette Sidhu APRN Primary Care Provider [phone] Reason for Visit * Reason Onset Date Comments Routine Visit 12/24/2013 Encounter Details Date Type Department Care Team (Late st Contact Info) Description 12/24/2013 Orders Only [facility] Obstetrics & [place] [address] Cary Christensen, RN Supervision of high-risk of [...] Primary documented in this encounter Care Teams Machining Manager Relationship Specialty Start Date End Date Annette Sidhu, COLLEGE ADMINISTRATOR [address] [place] [phone] PCP - General 03/19/13 07/06/19 documented as of this encounter
--- OUTSIDE RECORDS SUMMARY | 2024-02-17 18:42 | XMS_ITS | Encounter Summary ---
Author Organization [facility] Address [address] [place] [address] Care Team Providers Care Scientific Specialist Name Role Phone Annette Sidhu APRN Primary Care Provider [phone] Encounter Details Date Type Department Care Team (Late st Contact Info) Description 10/06/2013 Phlebotomy Only [facility] [address] [place] [address] Tavern Operator, Outpatient Social History Tobacco Use Types Packs/Day [...] 2 diabetes mellitus ([facility]) 8.7(07/07/2015 5:05 EST) No Annmarie Vigil documented as of this encounter Visit Diagnoses Not on filedocumented in this encounter Care Teams Scientific Specialist Relationship Specialty Start Date End Date Annette Sidhu APRN [address] [place] [phone] PCP - General 03/19/13 07/06/19 documented as of this encounter
--- OUTSIDE RECORDS SUMMARY | 2024-02-17 18:42 | XMS_ITS | Encounter Summary ---
Author Organization [facility] Address [address] [place] [address] Care Team Providers Care Sales Leader Name Role Phone Annette Sidhu APRN Primary Care Provider [phone] Encounter Details Date Type Department Care Team ([facility] st Contact Info) Description 12/11/2013 Phlebotomy Only [address] [address] Ledge Man, Outpatient Social History Tobacco Use Types Packs/Day [...] Type 2 diabetes mellitus ([facility]) 8.7(07/07/2015 5:05 EST) No Annmarie Vigil documented as of this encounter Visit Diagnoses Not on filedocumented in this encounter Care Teams Sales Leader Relationship Specialty Start Date End Date Annette Sidhu APRN [address] [place] [phone] PCP - General 03/19/13 07/06/19 documented as of this encounter
--- OUTSIDE RECORDS SUMMARY | 2024-02-17 18:42 | XMS_ITS | Encounter Summary ---
Author Organization [facility] Address [address] [place] [address] Care Team Providers Care Drafter Mechanical Name Role Phone Annette Sidhu APRN Primary Care Provider [phone] Reason for Visit * Reason Onset Date Comments Ultrasound 10/20/2013 Encounter Details Date Type Department Care Team (Late st Contact Info) Description 10/20/2013 Telephone [facility] OBGYN Services - [facility] [address] [place] [address] Yoana Das, RN [address] [place] [address] Ultrasound Social History Tobacco Use Types Packs/Day [...] Component Type 2 diabetes mellitus ([facility]) 8.7(07/07/2015 5:05 EST) Annmarie Lopez documented as of this encounter Visit Diagnoses Not on filedocumented in this encounter Care Teams Drafter Mechanical Relationship Specialty Start Date End Date Annette Sidhu APRN [address] [place] [phone] PCP - General 03/19/13 07/06/19 documented as of this encounter
--- OUTSIDE RECORDS SUMMARY | 2024-02-17 18:42 | XMS_ITS | Encounter Summary ---
Author Organization [facility] Address [address] [place] [address] Care Team Providers Care Butcherette Name Role Phone Annette Sidhu APRN Primary Care Provider [phone] Reason for Visit * Reason Comments Routine Visit Encounter Details Date Type Department Care Team (Latest Contact Info) Description 01/04/2014 13:45 EDT Office Visit [facility] Endocrinology - [address] [phone] Unknown, Provider, , High Risk Type II [...] Kayley Ochoa MD - 01/04/2014 1430 EDT [facility] Diabetes Initial Evaluation Note CHIEF COMPLAINT: Guzman [...] not had a previous visit with a developmental mathematics instructor. She rarely participates in exercise. She monitors [...] notbeing taken. She does not see a senior qa automation engineer.Eye exam is current. Family history is reviewed [...] Referred to diabetic education program. Referred to developmental mathematics instructor yes appointment TBA. Patient referred to eye healthcare economics manager for annual dilated eye exam. Lifestyle modifications: [...] MD 01/04/2014 14:30 Family Medicine R1 p [id number] Attestation statement: I saw and examined the [...] diabetes mellitus ([facility]) 8.7(07/07/2015 5:05 EST) No Annmarie Vigil [...] 01/04/2014 documented in this encounter Care Teams Butcherette Relationship Specialty Start Date End Date Annette Sidhu APRN [address] [place] [phone] PCP - General 03/19/13 07/06/19 documented as of this encounter
--- OUTSIDE RECORDS SUMMARY | 2024-02-17 18:42 | XMS_ITS | Encounter Summary ---
Author Organization [facility] Address [address] [place] [address] Care Team Providers Care Painting Contractor Name Role Phone Annette Sidhu APRN Primary Care Provider [phone] Reason for Visit * Reason Onset Date Comments Blood Glucose Review 12/29/2013 Encounter Details Date Type Department Care Team (Late st Contact Info) Description 12/29/2013 Telephone [facility] OBGYN Services - [address] [address] Cary Christensen, RN Blood Glucose Review Social [...] 2 diabetes mellitus ([facility]) 8.7(07/07/2015 5:05 EST) No Annmarie Vigil documented as of this encounter Visit Diagnoses Not on filedocumented in this encounter Care Teams Painting Contractor Relationship Specialty Start Date End Date Annette Sidhu, SERVICE STATION OPERATOR [address] [place] [phone] PCP - General 03/19/13 07/06/19 documented as of this encounter
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
--- OUTSIDE RECORDS SUMMARY | 2024-02-17 18:42 | XMS_ITS | Encounter Summary ---
Author Organization [facility] Address [address] [place] [address] Care Team Providers Care Animal Care Technician Name Role Phone SidhuErnst puckettjayant Kay APRN Primary Care Provider [phone] Reason for Visit * Reason Onset Date Comments Suicidal Ideation 12/31/2013 Encounter Details Date Type Department Care Team (Late st Contact Info) Description 12/31/2013 Telephone [facility] Obstetrics & [place] [address] Eduardo Friend MD [address] [place] [address] [place] [phone] Suicidal Ideation Social History Tobacco Use Types [...] Encounter - Eduardo Friend MD - 01/02/2014 4671 EDT Please refer to Michelle Devine RN note documented in this encounter Plan of Treatment Not on file documented as of this encounter Goals Goal Patient Goal Type Associated Problems Recent Progress Patient-Stated? Author HEMOGLOBIN A1C < 7.0 Result Component Type 2 diabetes mellitus ([facility]) 8.7(07/07/2015 5:05 EST) Annmarie Lopez documented as of this encounter Visit Diagnoses Not on filedocumented in this encounter Care Teams Animal Care Technician Relationship Specialty Start Date End Date Annette Sidhu, VICE PRESIDENT CLIENT SERVICES [address] [place] [phone] PCP - General 03/19/13 07/06/19 documented as of this encounter
--- OUTSIDE RECORDS SUMMARY | 2024-02-17 18:42 | XMS_ITS | Encounter Summary ---
Author Organization [facility] Address [address] [place] [address] Care Team Providers Care Information Systems Consultant Name Role Phone Annette Sidhu APRN Primary Care Provider Encounter Details Date Type Department Care Team (Latest Contact Info) Description 01/06/2014 7:29 EDT - 01/06/2014 23:59 EDT Hospital Encounter [address] [address] Unknown, Provider, Eduard Pineda MD [address] [place] [address] [place] [phone] Discharge Disposition: Auto Discharge Social History [...] Type 2 diabetes mellitus ([facility]) 8.7(07/07/2015 5:05 EST) Annmarie Lopez documented as of this encounter Visit Diagnoses Not on filedocumented in this encounter Care Teams Information Systems Consultant Relationship Specialty Start Date End Date Annette Sidhu APRN [address] [place] [phone] PCP - General 03/19/13 07/06/19 documented as of this encounter
--- OUTSIDE RECORDS SUMMARY | 2024-02-17 18:42 | XMS_ITS | Encounter Summary ---
Author Organization [facility] Address [address] [place] [address] Care Team Providers Care Commutator Operator Name Role Phone Annette Sidhu APRN Primary Care Provider [phone] Reason for Visit * Reason Onset Date Comments Medications Refill 01/01/2014 Encounter Details Date Type Department Care Team (Late st Contact Info) Description 01/01/2014 Telephone [facility] Obstetrics & Midwifery - [address] [address] Cary Christensen, RN Medications Refill Social History [...] had been denied Rx by psychiatry at [facility]. Reviewed our conversation yesterday where it was advised she reach out to prescribing MD, pt reports she has been trying to get in touch with [facility] where she sees Dr. Angel, but no one ever returns my call. Offered to call [facility] on her behalf, she accepted. Call placed, spoke with RN who states there is a note from Annette Maldonado NP, pt's primary care provider who called patient to follow up this AM and gave patient two options: 1. To be seen at walk-in clinic today, 01/01 by AIR SAW OPERATOR, to discuss plan of care moving forward, or 2. To present to walk-in clinic on Saturday when is in clinic. Pt has option of either or both of those. Per [facility] policy, no refill of medication is [...] if she intends to follow up at [facility] today. documented in this encounter Plan of Treatment Not on file documented as of this encounter Goals Goal Patient Goal Type Associated Problems Recent Progress Patient-Stated? Author HEMOGLOBIN A1C < 7.0 Result Component Type 2 diabetes mellitus ([facility]) 8.7(07/07/2015 5:05 EST) No Annmarie Vigil documented as of this encounter Visit Diagnoses Not on filedocumented in this encounter Care Teams Commutator Operator Relationship Specialty Start Date End Date Annette Sidhu APRN [address] [place] [phone] PCP - General 03/19/13 07/06/19 documented as of this encounter
--- OUTSIDE RECORDS SUMMARY | 2024-02-17 18:42 | XMS_ITS | Encounter Summary ---
Author Organization [facility] Address [address] [place] [address] Care Team Providers Care Job Change Crew Member Name Role Phone Annette Sidhu APRN Primary Care Provider [phone] Reason for Visit * Reason Onset Date Comments Other 12/31/2013 Encounter Details Date Type Department Care Team (Late st Contact Info) Description 12/31/2013 Telephone [facility] Obstetrics & Midwifery - [address] [address] Michelle Devine, RN Other Social History Tobacco [...] Encounter - Michelle Devine, PRISCILA - 12/31/[address] Torres, discussed today's [...] Type 2 diabetes mellitus ([facility]) 8.7(07/07/2015 5:05 EST) Annmarie Lopez documented as of this encounter Visit Diagnoses Not on filedocumented in this encounter Care Teams Job Change Crew Member Relationship Specialty Start Date End Date Annette Sidhu APRN [address] [place] [phone] PCP - General 03/19/13 07/06/19 documented as of this encounter
--- OUTSIDE RECORDS SUMMARY | 2024-02-17 18:42 | XMS_ITS | Encounter Summary ---
Author Organization [facility] Address [address] [place] [address] Care Team Providers Care Vascular Technician Name Role Phone Nahum Annette Kay APRN Primary Care Provider [phone] Encounter Details Date Type Department Care Team (Latest Contact Info) Description 02/04/2014 14:14 EDT - 02/04/2014 23:59 EDT Hospital Encounter [facility] [phone] Charlee Reyes MD Discharge Disposition: Home or [...] 2 diabetes mellitus ([facility]) 8.7(07/07/2015 5:05 EST) Annmarie Lopez documented as of this encounter Visit Diagnoses Not on filedocumented in this encounter Care Teams Vascular Technician Relationship Specialty Start Date End Date Annette Sidhu APRN [address] [place] [phone] PCP - General 03/19/13 07/06/19 documented as of this encounter
--- OUTSIDE RECORDS SUMMARY | 2024-02-17 18:42 | XMS_ITS | Encounter Summary ---
Author Organization [facility] Address [address] [place] [address] Care Team Providers Care Green End Worker Name Role Phone Annette Sidhu APRN Primary Care Provider Encounter Details Date Type Department Care Team (Late st Contact Info) Description 11/26/2013 Documentation Visit [facility] OBGYN Services - [address] [address] Khaldia Quiñones MD Social History Tobacco Use Types [...] on filedocumented in this encounter Care Teams Green End Worker Relationship Specialty Start Date End Date Annette Sidhu APRN [address] [place] [phone] PCP - General 03/19/13 07/06/19 documented as of this encounter
--- OUTSIDE RECORDS SUMMARY | 2024-02-17 18:42 | XMS_ITS | Encounter Summary ---
Author Organization [facility] Address [address] [place] [address] Care Team Providers Care Cocoa Bean Cleaner Name Role Phone Annette Sidhu APRN Primary Care Provider [phone] Reason for Visit * Reason Onset Date Comments Appointment Related 12/29/2013 Encounter Details Date Type Department Care Team (Late st Contact Info) Description 12/29/2013 Telephone [facility] Obstetrics & [place] [address] Cary Christensen, RN Appointment Related Social History [...] 2 diabetes mellitus ([facility]) 8.7(07/07/2015 5:05 EST) Annmarie Lopez documented as of this encounter Visit Diagnoses Not on filedocumented in this encounter Care Teams Cocoa Bean Cleaner Relationship Specialty Start Date End Date Annette Sidhu, PLUGMAN [address] [place] [phone] PCP - General 03/19/13 07/06/19 documented as of this encounter
--- OUTSIDE RECORDS SUMMARY | 2024-02-17 18:42 | XMS_ITS | Encounter Summary ---
Author Organization [facility] Address [address] [place] [address] Care Team Providers Care Dock Associate Name Role Phone Annette Sidhu APRN Primary Care Provider Reason for Visit * Reason Onset Date Comments Other 12/15/2013 proof of pregnan cy, nausea Encounter Details Date Type Department Care Team (Late st Contact Info) Description 12/15/2013 Telephone [facility] Obstetrics [place] [address] Mame Long RN Other (proof of , [...] if n/v worsen she needs to call [facility]. Ryan verbalized understanding -Ryan also wanted [...] diabetes mellitus ([facility]) 8.7(07/07/2015 5:05 EST) Annmarie Lopez documented as of this encounter Visit Diagnoses Not on filedocumented in this encounter Care Teams Dock Associate Relationship Specialty Start Date End Date Annette Sidhu APRN [address] [place] [phone] PCP - General 03/19/13 07/06/19 documented as of this encounter
--- OUTSIDE RECORDS SUMMARY | 2024-02-17 18:42 | XMS_ITS | Encounter Summary ---
Author Organization [facility] Address [address] [place] [address] Care Team Providers Care Inside Meter Tester Name Role Phone Annette Sidhu APRN Primary Care Provider [phone] Encounter Details Date Type Department Care Team (Latest Contact Info) Description 10/20/2013 10:57 EDT - 10/20/2013 23:59 EDT Hospital Encounter [address] [address] Imani Tapia MD [address] [place] [address] [address] [place] [phone] Discharge Disposition: Home or Self [...] mcg/actuation nasal sprayIndications:Aller gic rhinitis Instill 1 [place] into both nostrils daily. 1 Bottle 2 [...] 2 diabetes mellitus ([facility]) 8.7(07/07/2015 5:05 EST) No Annmarie [...] de Phone Number [facility] [address] [place] [address] documented in this encounter Visit Diagnoses Not on filedocumented in this encounter Care Teams Inside Meter Tester Relationship Specialty Start Date End Date Annette Sidhu, SVP GROUP DIRECTOR [address] [place] [phone] PCP - General 03/19/13 07/06/19 documented as of this encounter
--- OUTSIDE RECORDS SUMMARY | 2024-02-17 18:42 | XMS_ITS | Encounter Summary ---
Author Organization [facility] Address [address] [place] [address] Care Team Providers Care Chicken Hatchery Helper Name Role Phone Annette Sidhu APRN Primary Care Provider [phone] Encounter Details Date Type Department Care Team ([facility] st Contact Info) Description 11/16/2013 Abstract [facility] Nurse Midwifery Program - [place] [address] [place] [address] Annalee Rondon LPN Social History [...] Type 2 diabetes mellitus ([facility]) 8.7(07/07/2015 5:05 EST) No Annmarie Vigil documented as of this encounter Visit Diagnoses Not on filedocumented in this encounter Care Teams Chicken Hatchery Helper Relationship Specialty Start Date End Date Annette Sidhu APRN [address] [place] [phone] PCP - General 03/19/13 07/06/19 documented as of this encounter
--- OUTSIDE RECORDS SUMMARY | 2024-02-17 18:42 | XMS_ITS | Encounter Summary ---
Author Organization [facility] Address [address] [place] [address] Care Team Providers Care Real Time Analyst Name Role Phone Annette Sihdu APRN Primary Care Provider [phone] Reason for Referral * CORRECTIONAL PROGRAM OFFICER (Routine) - Closed Specialty Diagnoses / Procedures Referred By [facility] t Referred To Contact Diagnoses Unspecified complication of , antepartum Procedures RETAIL PLANNING MANAGER US OB FIRST TRIMESTER TRANSVAGINAL Yoana Das, PRISCILA [address] [place] [address] Referral ID Status Reason Start Date Expiration Date Visits Re quested Visits Authorized [id number] Closed 10/20/2013 1 1 Encounter Details Date Type Department Care Team (Late st Contact Info) Description 10/20/2013 Orders Only [facility] [place] [address] Yoana Das, RN [address] [place] [address] Unspecified complication of , antepartum (Primary Dx) [...] 2 diabetes mellitus ([facility]) 8.7(07/07/2015 5:05 EST) No Annmarie Vigil documented as of this encounter Procedures Procedure Name Priority Date/Time Associated Diagnosis Comments RETAIL PLANNING MANAGER US OB FIRST TRIMESTER TRANSVAGINAL Routine 10/20/2013 14:14 EDT Unspecified complication of , antepartum documented in this encounter Results * RETAIL PLANNING MANAGER US OB FIRST TRIMESTER TRANSVAGINAL (10/20/2013 14:14 [...] Summary: Impression: 1st Trimester OB scan ,transvaginal +[id number] Single viable intrauterine (IUP) , size equals [...] Summary: Impression: 1st Trimester OB scan ,transvaginal +[id number] Single viable intrauterine (IUP) , size equals menstrual dates. Imani Tapia MD IMG RETAIL PLANNING MANAGER O RDERABLES documented in this encounter Visit Diagnoses Diagnosis Unspecified complication of , antepartum- Primary documented in this encounter Care Teams Real Time Analyst Relationship Specialty Start Date End Date Annette Sidhu, STOCKROOM ATTENDANT [address] [place] [phone] PCP - General 03/19/13 07/06/19 documented as of this encounter
--- OUTSIDE RECORDS SUMMARY | 2024-02-17 18:42 | XMS_ITS | Encounter Summary ---
Author Organization [facility] Address [address] [place] [address] Care Team Providers Care Food Preservation Scientist Name Role Phone Annette Sidhu APRN Primary Care Provider [phone] Encounter Details Date Type Department Care Team (Late st Contact Info) Description 10/20/2013 Phlebotomy Only [address] [address] Instructor Extension Work, Outpatient Social History Tobacco Use Types Packs/Day [...] Component Type 2 diabetes mellitus ([facility]) 8.7(07/07/2015 5:05 EST) No Annmarie Vigil documented as of this encounter Visit Diagnoses Not on filedocumented in this encounter Care Teams Food Preservation Scientist Relationship Specialty Start Date End Date Annette Sidhu APRN [address] [place] [phone] PCP - General 03/19/13 07/06/19 documented as of this encounter
--- OUTSIDE RECORDS SUMMARY | 2024-02-17 18:42 | XMS_ITS | Encounter Summary ---
Author Organization [facility] Address [address] [place] [address] Care Team Providers Care Life Trainer Name Role Phone Annette Sidhu APRN Primary Care Provider [phone] Reason for Visit * Reason Onset Date Comments Routine Visit 01/28/2014 Encounter Details Date Type Department Care Team (Late st Contact Info) Description 01/28/2014 Orders Only [facility] Obstetrics [place] [address] Khalida Quiñones MD Supervision of other high-risk [...] 2 diabetes mellitus ([facility]) 8.7(07/07/2015 5:05 EST) No Annmarie Vigil documented as of this encounter Visit Diagnoses Diagnosis Supervision of other high-risk (V23.89)- Primary Supervision of other high-risk documented in this encounter Orders Lab Orders Without Results Count Last Ordered D ate First Ordered Date ANTIBODY SCREEN 1 01/29/2014 documented in this encounter Care Teams Life Trainer Relationship Specialty Start Date End Date Annette Sidhu, NEON GLASS BENDER [address] [place] [phone] PCP - General 03/19/13 07/06/19 documented as of this encounter
--- OUTSIDE RECORDS SUMMARY | 2024-02-17 18:42 | XMS_ITS | Encounter Summary ---
Author Organization [facility] Address [address] [place] [address] Care Team Providers Care Sales Attendant Name Role Phone Nahum Annette Kay APRN Primary Care Provider [phone] Reason for Referral * Cardiology (Routine) - Closed Specialty Diagnoses / Procedures Referred By Contac t Referred To Contact Diagnoses Diabetes mellitus, antepartum(648.03) Procedures [facility] ECHOCARDIOGRAM (PEDI CARD) Magaly Barahona MD [address] [place] [address] [place] [address] Referral ID Status Reason Start Date Expiration Date Visits Re quested Visits Authorized [id number] Closed 01/18/2014 1 1 Reason for Visit * Reason Comments Routine Visit Encounter Details Date Type Department Care Team (Late st Contact Info) Description 01/18/2014 14:00 EDT Routine [facility] Obstetrics & Midwifery [address] [address] Khalida Quigley MD GA: 20w0d Social History [...] Seen with Dr. Quigley. Magaly Barahona MD [facility] Attending I saw the pt with Dr. [...] Bilirubin Neg Neg Ketones Neg Neg Specific [place] 1.010 1.001 - 1.035 Blood Neg Neg pH 6.0 4.6 - 8.0 Protein Neg Neg Urobilinogen 0.2 0.2 - 1.0 E.U./dl Nitrite Neg Neg Leuk Esterase Neg Neg Tech ID [id number] documented in this encounter Miscellaneous Notes * [...] Type 2 diabetes mellitus ([facility]) 8.7(07/07/2015 5:05 EST) Annmarie Lopez documented as of this encounter Procedures Procedure Name Priority Date/Time Associated Diagnosis Comments [facility] ECHOCARDIOGRAM (PEDI CARD) Routine 02/04/2014 14:00 EDT Diabetes mellitus, antepartum(648.03) POCT URINE DIPSTICK, CLINITEK Routine 01/18/2014 14:14 EDT Supervision of other normal documented in this encounter Results * [facility] ECHOCARDIOGRAM (PEDI CARD) (02/04/2014 14:00 EDT) Anatomical Region Laterality Modality Other 02/04/2014 14:0 0 EDT Narrative 02/04/2014 14:36 EDT Patient Name: HILDA CROWLEY Chart Number: [id number] Site Location: Date of Appt: January, 2:00 PM Echocardiogram Report Demographics and Visit Data: Due Date: 07-Jun-2014. ??Gestational age (weeks): 22.57. ?? : 1975. ??Age: 38y/6m/21d. ??Reason for test: 648.03-Diabetes mellitus, ovffspecfu-EPB-1-CM; Type 2 Diabetes Mellitus. ?? Person requesting test: MAGALY BARAHONA MD. ??Procedure Description: [facility] ECHOCARDIOGRAM (PEDI CARD). ?? echocardiogram at 22 [...] Area ? 0.32 ? cm 2 ? Hatch's Name: DION RIVERA MD Date/time of reading: Feb 04 2014 - 2:35:24 PM Report created at 2:36:24 PM on January Report Number: Note:Study interpreted at [facility] unless otherwise noted Procedure Note 02/04/2014 Patient Name: HILDA CROWLEY Chart Number: [id number] Site Location: Date of Appt: January, 2:00 PM Echocardiogram Report Demographics and Visit Data: Due Date: 07-Jun-2014. Gestational age (weeks): 22.57. : 1975. Age: 38y/6m/21d. Reason for test: 648.03-Diabetes mellitus, ojqefojczc-SXN-9-CM; Type 2 Diabetes Mellitus. Person requesting test: JUN PATTERSON,MAGALY Aguirre Procedure Description: [facility] ECHOCARDIOGRAM (PEDI CARD). echocardiogram at 22 weeks [...] 0.74 Diameter TV Area 0.32 cm 2 Hatch's Name: NICOLE PATTERSON,DION CARR Date/time of reading: Feb 04 2014 - 2:35:24 PM Report created at 2:36:24 PM on January Report Number: Note:Study interpreted at [facility] unless otherwise noted Magaly Barahona MD CARDIAC ECHO ORDERAB LES * POCT URINE DIPSTICK (01/18/2014 14:14 EDT) Color YELLOW [facility] Clarity, UA Clear [facility] Glucose Neg Neg [facility] Bilirubin Neg Neg [facility] Ketones Neg Neg [facility] Specific [place] 1.010 1.001 - 1.035 [facility] Blood Neg Neg [facility] pH 6.0 4.6 - 8.0 [facility] Protein Neg Neg [facility] Urobilinogen 0.2 0.2 - 1.0 E.U./dl [facility] Nitrite Neg Neg [facility] Leuk Esterase Neg Neg [facility] sifting operator ID [id number] [facility] Comment:Test performed at [facility] Urine specimen (specimen) 01/18/2014 14:14 EDT 01/18/2014 14:25 EDT Magaly Barahona MD POINT OF CARE TEST O RDERABLES [facility] [address] [place] [address] documented in this encounter Visit Diagnoses Diagnosis Supervision of other normal - Primary Diabetes mellitus, antepartum(648.03) Diabetes mellitus, antepartum documented in this encounter Care Teams Sales Attendant Relationship Specialty Start Date End Date Annette Sidhu, CUTTER ALUMINUM SHEET [address] [place] [phone] PCP - General 03/19/13 07/06/19 documented as of this encounter
--- OUTSIDE RECORDS SUMMARY | 2024-02-17 18:42 | XMS_ITS | Encounter Summary ---
Author Organization [facility] Address [address] [place] [address] Care Team Providers Care Library Circulation Department Chief Name Role Phone Annette Sidhu APRN Primary Care Provider Encounter Details Date Type Department Care Team (Late st Contact Info) Description 01/06/2014 Orders Only [facility] Endocrinology - [facility] [address] [place] [address] Eduard Pineda MD [address] [employer] [facility] [address] [place] [phone] Type II or unspecified type [...] Type 2 diabetes mellitus ([facility]) 8.7(07/07/2015 5:05 EST) No Annmarie Vigil documented as of this encounter Results * T4 FREE (02/22/2014 14:55 EDT) Free T4 0.9 0.8 - 1.8 ng/dl [facility] Blood specimen (specimen) 02/22/2014 14:55 EDT 02/22/2014 16:31 EDT Eudard Pineda MD CHEMISTRY & BLOOD GAS ORDERABLES Performing Organization Address [facility] de Phone Number [facility] [address] [place] [address] * TSH (02/22/2014 14:55 EDT) TSH 0.67 0.35 - 5.00 uIU/ml [facility] Blood specimen (specimen) 02/22/2014 14:55 EDT 02/22/2014 16:31 EDT Eduard Pineda MD CHEMISTRY & BLOOD GAS ORDERABLES Performing Organization Address [facility] de Phone Number [facility] [address] [place] [address] documented in this encounter Visit Diagnoses Diagnosis Type II or unspecified type diabetes mellitus without mention of complication, not stated as uncontrolled- Primary documented in this encounter Care Teams Library Circulation Department Chief Relationship Specialty Start Date End Date Annette Sidhu APRN [address] [place] [phone] PCP - General 03/19/13 07/06/19 documented as of this encounter
--- OUTSIDE RECORDS SUMMARY | 2024-02-17 18:42 | XMS_ITS | Encounter Summary ---
Author Organization [facility] Address [address] [place] [address] Care Team Providers Care Lye Peel Operator Name Role Phone Annette Sidhu APRN Primary Care Provider [phone] Reason for Visit * Reason Comments Other Diabeties Encounter Details Date Type Department Care Team (Latest Contact Info) Description 02/22/2014 13:15 EDT Office Visit [facility] Endocrinology - [address] [address] Unknown, Provider, , High Risk Type II [...] Cary Gonzales MBBS - 02/22/2014 1349 EDT [facility] Diabetes Follow-Up Note CHIEF COMPLAINT: Guzman [...] She has hada previous visit with a climate change analyst. She participates in exercise intermittently. (Fbs 100, 2hrr after supper almost up to 140) An PHILIPPE inhibitor/angiotensin II receptor oleg is contraindicated. She does not see a sushi chef.Eye exam is current. . Patient's home regimen [...] Referred to diabetic education program. Referred to climate change analyst yes . Patient referred to eye caretaker resort for annual dilated eye exam. Lifestyle modifications: [...] 2 diabetes mellitus ([facility]) 8.7(07/07/2015 5:05 EST) Annmarie Lopez documented as of this encounter Visit Diagnoses Diagnosis Type II or unspecified type diabetes mellitus with other specified manifestations, uncontrolled- Primary documented in this encounter Orders Lab Orders Without Results Count Last Ordered D ate First Ordered Date FRUCTOSAMINE 1 02/22/2014 documented in this encounter Care Teams Lye Peel Operator Relationship Specialty Start Date End Date Annette Sidhu, WELL SHOOTER [address] [place] [phone] PCP - General 03/19/13 07/06/19 documented as of this encounter
--- OUTSIDE RECORDS SUMMARY | 2024-02-17 18:42 | XMS_ITS | Encounter Summary ---
Author Organization [facility] Address [address] [place] [address] Care Team Providers Care Boiling Off Winder Name Role Phone Nahum Annette Kay APRN Primary Care Provider [phone] Reason for Visit * Reason Onset Date Comments Paperwork request 01/06/2014 Encounter Details Date Type Department Care Team (Late st Contact Info) Description 01/06/2014 Telephone [facility] Endocrinology - [facility] [address] [place] [address] Eduard Pineda MD [address] [facility] [address] [place] [phone] Paperwork request Social History Tobacco [...] Singleton - 01/06/2014 1012 EDT Kay @ [facility] [place] they received information on the pt [...] 2 diabetes mellitus ([facility]) 8.7(07/07/2015 5:05 EST) No Annmaire Vigil documented as of this encounter Visit Diagnoses Not on filedocumented in this encounter Care Teams Boiling Off Winder Relationship Specialty Start Date End Date Annette Sidhu, DIRECTOR CORPORATE [address] [place] [phone] PCP - General 03/19/13 07/06/19 documented as of this encounter
--- OUTSIDE RECORDS SUMMARY | 2024-02-17 18:42 | XMS_ITS | Encounter Summary ---
Author Organization [facility] Address [address] [place] [address] Care Team Providers Care Nutritionalist Name Role Phone Annette Sidhu APRN Primary Care Provider [phone] Reason for Referral * LANGUAGES AND LITERATURE INSTRUCTOR (Routine) - Closed Specialty Diagnoses / Procedures Referred By Contac t Referred To Contact Diagnoses Previous delivery, antepartum condition or complication Supervision of high-risk of elderly multigravida Type II or unspecified type diabetes mellitus without mention of complication, not stated as uncontrolled Procedures NURSING HOME DETAILED Khalida Quiñones MD Referral ID Status Reason Start Date Expiration Date Visits Re quested Visits Authorized [id number] Closed 12/11/2013 1 1 Reason for Visit * Reason Comments Initial Visit Boyfriend tested positive for chlymidia wants to be retested Encounter Details Date Type Department Care Team (Late st Contact Info) Description 12/11/2013 9:30 EDT Initial [facility] Obstetrics & Midwifery - [address] [address] Khalida Quiñones MD GA: 14w4d Social History [...] within normal limits. She was seen through [facility] and then referred here at approximately 14 weeks. See problem list for specifics. PROBLEM 2. Advanced maternal age. The patient will be 38 at the time of delivery. We discussed age related issues of trisomy and offered [place] versus other screening tests and/or direct past [...] and Tylenol. 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 Routine general medical examination at [facility] care facility 02/15/2005 ??? Polycystic ovaries 01/21/2008 ??? Fatigue ??? Wears glasses ??? Back pain ??? Anxiety ??? LBP (low back pain) 11/14/2010 ??? Depression ??? TIDWELL (headache) ??? Joint pain ??? Arm numbness ??? Hyperlipidemia 09/04/2011 ??? Hip pain ??? High cholesterol Past Surgical History Procedure Laterality Date ??? Tonsillectomy 2001 ??? Cholecystectomy 11/25/2009 Dr. Mnedez ??? section 1998,2007 times 2 ??? Hip arthroscopy 2013 Past TESTING ANALYST History reviewed in Chart. Social History Main Topics ??? Smoking status: Smoker, Current Status Unknown -- 0.50 packs/day for 3 years Types: Cigarettes ??? Smokeless tobacco: Never Used ??? Alcohol Use: No ??? Drug Use: No ??? Sexually Active: Yes Living Situation: not with FOB- new boyfriend- very supportive- living together. CONTRACT RECRUITER- L+D Review of Systems: Pertinent items are [...] Smoking - /2 ppd- encouraged further decrease CONTRACT RECRUITER - nights on L+D FOB- not involved- [...] Smoking - 1/2 ppd- encouraged further decrease CONTRACT RECRUITER - nights on L+D FOB- not involved- [...] diabetes mellitus ([facility]) 8.7(07/07/2015 5:05 EST) No Annmarie Vigil documented as of this encounter Procedures Procedure Name Priority Date/Time Associated Diagnosis Comments NURSING HOME DETAILED Routine 01/18/2014 11:49 EDT Previous delivery, antepartum condition or complication Supervision of high-risk of elderly multigravida Type II or unspecified type diabetes mellitus without mention of complication, not stated as uncontrolled PATHOLOGY - SCANNED 12/23/2013 15:40 EDT documented in this encounter Results * NURSING HOME DETAILED (01/18/2014 11:49 EDT) Anatomical Region Laterality [...] of Ultrasound Findings: Transabdominal US. U/S machine: [employer] e[employer]. U/S view: good. Genetic Sonogram: measured [...] no free fluid visible. Report Summary: Impression: [id number] Obstetrical ultrasound with and maternal evaluation, including [...] of Ultrasound Findings: Transabdominal US. U/S machine: [employer] e[employer]. U/S view: good. Genetic Sonogram: measured [...] no free fluid visible. Report Summary: Impression: [id number] Obstetrical ultrasound with and maternal evaluation, including [...] 12 ozs n/a% Khalida Quiñones MD IMG [facility] ORDERABLE S * PATHOLOGY - SCANNED (12/23/2013 15:40 EDT) 12/23/2013 15:4 0 EDT Scan 2 Fabric Worker Foreman LAB INFO SERVICE AN D SUPPORT & PHONE RESULT documented in this encounter Visit Diagnoses Diagnosis Previous delivery, antepartum condition or complication- Primary Supervision of high-risk of elderly multigravida Type II or unspecified type diabetes mellitus without mention of complication, not stated as uncontrolled documented in this encounter Care Teams Nutritionalist Relationship Specialty Start Date End Date Annette Sidhu APRN [address] [place] [phone] PCP - General 03/19/13 07/06/19 documented as of this encounter
--- OUTSIDE RECORDS SUMMARY | 2024-02-17 18:42 | XMS_ITS | Encounter Summary ---
Author Organization [facility] Address [address] [place] [address] Care Team Providers Care Finding Fastener Name Role Phone Annette Sidhu APRN Primary Care Provider [phone] Reason for Visit * Reason Comments Diabetes Encounter Details Date Type Department Care Team (Latest Contact Info) Description 01/11/2014 14:00 EDT Office Visit [facility] Endocrinology - [address] [phone] Unknown, Provider, Mfm, Cde Type II or [...] 2 diabetes mellitus ([facility]) 8.7(07/07/2015 5:05 EST) Annmarie Lopez documented as of this encounter Visit Diagnoses Diagnosis Type II or unspecified type diabetes mellitus without mention of complication, not stated as uncontrolled- Primary documented in this encounter Care Teams Finding Fastener Relationship Specialty Start Date End Date Annette Sidhu, COREMAKER FLOOR [address] [place] [phone] PCP - General 03/19/13 07/06/19 documented as of this encounter
--- OUTSIDE RECORDS SUMMARY | 2024-02-17 18:42 | XMS_ITS | Encounter Summary ---
Author Organization [facility] Address [address] [place] [address] Care Team Providers Care Warm In Worker Name Role Phone Annette Sidhu APRN Primary Care Provider [phone] Encounter Details Date Type Department Care Team (Late st Contact Info) Description 12/22/2013 Documentation Visit [facility] Obstetrics & [place] [address] Khalida Quiñones MD Social History Tobacco Use [...] Tran - 12/22/2013 0857 EDT Low Risk [place] results received on 12.21.13. Female Fetus - [...] Component Type 2 diabetes mellitus ([facility]) 8.7(07/07/2015 5:05 EST) Annmarie Lopez documented as of this encounter Visit Diagnoses Not on filedocumented in this encounter Care Teams Warm In Worker Relationship Specialty Start Date End Date Annette Sidhu APRN [address] [place] [phone] PCP - General 03/19/13 07/06/19 documented as of this encounter
--- OUTSIDE RECORDS SUMMARY | 2024-02-17 18:42 | XMS_ITS | Encounter Summary ---
Author Organization [facility] Address [address] [place] [address] Care Team Providers Care Electrician Aircraft Name Role Phone Annette Sidhu APRN Primary Care Provider Encounter Details Date Type Department Care Team (Late st Contact Info) Description 12/31/2013 Documentation Visit [facility] Obstetrics & Midwifery - [address] [address] Charity Onofre MD [address] [facility], [address] [place] [phone] Social History Tobacco Use Types Packs/Day Years [...] eval. I disc pt with psych resident client consultant in case she presents at Crisis. We [...] on filedocumented in this encounter Care Teams Electrician Aircraft Relationship Specialty Start Date End Date Annette Sidhu, PROGRAM REVIEW DIRECTOR [address] [place] [phone] PCP - General 03/19/13 07/06/19 documented as of this encounter
--- OUTSIDE RECORDS SUMMARY | 2024-02-17 18:42 | XMS_ITS | Encounter Summary ---
Author Organization [facility] Address [address] [place] [address] Care Team Providers Care Host/Hostess Ground Name Role Phone SidhuErnst puckettjayant Kay APRN Primary Care Provider [phone] Reason for Visit * Reason Comments Suicidal [...] 19:01 EDT - 01/01/2014 12:02 EDT Emergency [facility] Emergency Department - [place] [phone] Haim Mendoza MD [address] [place] [phone] Nelly Krause MD [address] [place] [phone] Isa Resendiz MD MPH [address] [place], [place] [phone] Emergency, MD Kamila Depression with suicidal ideation (Primary Dx); Second trimester ; Type 2 diabetes mellitus ([facility]) ([facility]) Discharge Disposition: Home or Self Care [...] or Self Fdc documented in this encounter Consult Notes * Selvin Christie MD - 01/01/2014 0540 EDT Obestetric Consult Note Admit Date: 12/31/2013 Hospital Day: LOS: 1 day Date of Service: 01/01/2014 Chief Complaint: Suicidal ideation. HPI: Gzuman Crowley is a 38 y.o. @ 17w4d well known to the [facility] service w/ hx of T2DM, depression, anxiety, bipolar disorder and hx of two suicide attempts. Patient called [facility] clinic earliertoday asking for scripts for [...] Grandmother ??? Diabetes Paternal Grandfather OB History LEGAL CONTRACTS SPECIALIST History OB History Para Term AB SAB [...] currently being evaluated by CRISIS and the president celebrity acquistion is aware of this patient. Selvin Christie MD * Melvi Hanley MD - 01/01/2014 0257 EDT Psychiatry Consultation Date of Consult: 01/01/2014 Patient Profile: Guzman Crowley 38 y.o. 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 She has been seeing [facility] on-and-off since [...] from her due to her mental illness. Cpi-kfs-w-half months ago, the patient started dating another [...] do an on herself with a vacuum bladder cleaner or with an amnio hook (she works [...] hospitalized, particularly on the psych griffin at [facility] as she feels that she was treated poorly there. She is under the impression that she is being admitted to the OB service for some low grade cramping she had when she first came into the ED(she was medically cleared). She refuses hospitalization at [facility]. She is amenable to going to Assist [...] violence toward others: None Past hospitalization: [facility] in November 2012, Roberto August in April 2013, has completed [facility] Psychiatrist: Dr. Colbert Therapist: Anita [facility] Medical/Surgical [...] currently staying with father and stepmother in [place], with a strained relationship. Her two children, 6yo and 15yo are living with their father whom the patient is still technically to, although they have been for many years. 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 She has good supports in her coworkers. [...] ED today at the urging of her SENIOR PROJECT ARCHITECT for emotional dysregulation and self-harm impulses in [...] suicidal thoughts or intent. DSM IV Diagnosis Wilson I: Depression, PTSD, Borderline personality disorder Wilson II: Borderline personality disorder Wilson III: See Medical/Surgical History above Wilson IV: Relationship problems, , chronic pain, family stressors Wilson V: 55 Suicide Risk Assessment Modifiable Risk Factors Non-Modifiable Risk Factors Protective Factors Current suicidal ideation Recent suicide attempt Children in home Current plan for suicide x Prior suicide attempt Pentecostalism prohibition Intent for self harm or suicide [...] speak with her mother who lives in [facility] [phone], and is willing to go and stay [...] * Fartun Charlton - 01/01/2014 0830 EDT Oceanologist Consultation Guzman Crowley Date of Consultation: 01/01/2014 Time: 829 Reason for Consult: Disposition patient evaluated earlier by [facility] and Psych Resident and subsequently roomed in [...] transportation, supervision) Declined Assist. Follow up with [facility] providers. Dr Hanley declined to provide rx for Focolin. Call [facility] as needed or if changes mind again about Assist. Contact [facility] for services; # provided. To where is the patient discharging?: Father's home. Assessment and plan discussed with: Melvi Hanley MD Exam: Appearance: Disheveled Behavior: Lying facedown resting on gurney Cooperation: Good Mood: Depressed Affect: Congruent Thought content: Obtaining rx for Focolin Thought process: Rational, organized Suicidality: Low Homicidality: Moderate thoughts of harm to fetus Clinician Fartun Charlton [facility] * Stephanie Stewart RN - 01/01/2014 0741 [...] * Sendy Dukes - 12/31/2013 2318 EDT Oceanologist Consultation Guzman Crowley Date of Consultation: 12/31/2013 Time:2200 Reason for Consult: Client reports +SI after break-up with boyfriend of 1 1/2 months. She is 17 months by another ex-boyfriend. History: Client is a 38 year old DWF, with one prior contact with Crisis Service. Per [facility] psych admit in 05/12, client is diagnosed [...] thought of aborting her with a vacuum bladder cleaner She no longer takes insulin, so does [...] is not interested in I/P admit to [facility] psych unit because she feels she was treated poorly there during her admission in 05/12. She states that [facility] helped her in the past. However, when [...] intent Homicidality: Denies Clinician Sendy Dukes MA, [facility] * Haim Mendoza MD - 12/31/2013 2020 [...] Neg Neg Collection Time Result Time Specific [place] Blood pH Protein Urobilinogen 12/31/13 19:59:00 12/31/13 20:05:34 <=1.005 Neg 6.0 Neg 0.2 Collection Time Result Time Nitrite Leuk Esterase TECH ID 12/31/13 19:59:00 12/31/13 20:05:34 Neg Neg [id number] Test performed at Emergency Department SCREENING GLUCOSE [...] is seen in the ED by the sheet metal contractor and will be evaluated by the president celebrity acquistion.Patient's past history of highly lethal suicide attempt, [...] done 23:14 Care relinquished to Mo[facility] * Eors Cantor RN - 12/31/2013 1901 EDT TCALL: [...] 2 diabetes mellitus ([facility]) 8.7(07/07/2015 5:05 EST) No Annmarie [...] 70 - 100 mg/dl [facility] Mortgage Professional ID [id number] [facility] Comment:Test Performed by [facility] 01/01/2014 10:4 4 EDT 01/01/2014 11:11 EDT Provider Unknown CHEMISTRY & BLOOD JAGDEEP S ORDERABLES Performing Organization Address [facility] Co de Phone Number [facility] [address] [place] [address] * (ABNORMAL) POCT GLUCOSE (01/01/2014 6:27 EDT) Glucose, POC 117(A) 70 - 100 mg/dL Blood specimen (specimen) 01/01/2014 6:27 EDT Nelly Krause MD POINT OF CARE T EST ORDERABLES * (ABNORMAL) GLUCOSE, GLUCOMETER (01/01/2014 6:26 EDT) Glucose, Fingerstick 117(H) 70 - 100 mg/dl [facility] Mortgage Professional ID [id number] [facility] Comment:Test Performed by [facility] 01/01/2014 6:26 EDT 01/01/2014 6:34 EDT Provider Unknown CHEMISTRY & BLOOD JAGDEEP S ORDERABLES Performing Organization Address [facility] Co de Phone Number [facility] [address] [place] [address] * (ABNORMAL) POCT URINE DIPSTICK (12/31/2013 19:59 EDT) Color YELLOW [facility] Clarity, UA Clear [facility] Glucose 1+(A) Neg [facility] Bilirubin Neg Neg [facility] Ketones Neg Neg [facility] Specific [place] <=1.005 1.001 - 1.035 [facility] Blood Neg Neg [facility] pH 6.0 4.6 - 8.0 [facility] Protein Neg Neg [facility] Urobilinogen 0.2 0.2 - 1.0 E.U./dl [facility] Nitrite Neg Neg [facility] Leuk Esterase Neg Neg [facility] liquor merchant ID [id number] [facility] Comment:Test performed at Em ergency Department Urine specimen (specimen) 12/31/2013 19:59 EDT 12/31/2013 20:05 EDT Haim Mendoza MD POINT OF CARE TEST ORDERABLES Performing Organization Address [facility] Co de Phone Number [facility] [address] [place] [address] * (ABNORMAL) DIFFERENTIAL (12/31/2013 19:46 EDT) % [...] & PF4 OR DERABLES Performing Organization Address [facility] de Phone Number [facility] [address] [place] [address] * (ABNORMAL) HEMAGRAM (12/31/2013 19:46 EDT) WBC 15.95(H) 4.0 - 12.4 K/cmm [facility] RBC 4.10 3.86 - 5.04 M/cmm [facility] Hemoglobin 13.4 11.6 - 15.2 gm/dl [facility] HCT 37.6 34.9 - 44.4 % [...] & PF4 OR DERABLES Performing Organization Address [facility] de Phone Number [facility] [address] [place] [address] * ETHANOL, BLOOD (12/31/2013 19:46 EDT) Ethanol <10 <10 mg/dl [facility] Blood specimen (specimen) 12/31/2013 19:46 EDT 12/31/2013 20:03 EDT Haim Mendoza MD CHEMISTRY & BLOOD G ORDERABLES Performing Organization Address [facility] de Phone Number [facility] [address] [place] [address] * ACETAMINOPHEN (12/31/2013 19:46 EDT) Acetaminophen <10.0 ug/ml [facility] Comment: Therapeutic range: ??10 - 30 ug/mL Possible toxicity: ??150 - 200 ug/mL Probable toxicity: ??>200 ug/mL Blood specimen (specimen) 12/31/2013 19:46 EDT 12/31/2013 20:03 EDT Haim Mendoza MD CHEMISTRY & BLOOD G ORDERABLES Performing Organization Address [facility] de Phone Number [facility] [address] [place] [address] * (ABNORMAL) CREATININE (12/31/2013 19:46 EDT) Creatinine 0.43(L) 0.52 - 1.04 mg/dl [facility] GFR, Calculated >60 >60 ml/min/1.7 3m2 [facility] Blood specimen (specimen) 12/31/2013 19:46 EDT 12/31/2013 20:03 EDT Haim Mendoza MD CHEMISTRY & BLOOD G ORDERABLES Performing Organization Address [facility] de Phone Number [facility] [address] [place] [address] * (ABNORMAL) BUN (12/31/2013 19:46 EDT) BUN 3(L) 10 - 26 mg/dl [facility] Blood specimen (specimen) 12/31/2013 19:46 EDT 12/31/2013 20:03 EDT Haim Mendoza MD CHEMISTRY & BLOOD G ORDERABLES Performing Organization Address [facility] de Phone Number [facility] [address] [place] [address] * (ABNORMAL) ELECTROLYTES (12/31/2013 19:46 EDT) Sodium 134(L) 136 - 145 mEq/L [facility] Potassium 3.5 3.5 - 5.0 mEq/L [facility] Chloride 102 96 - 110 mEq/L [facility] CO2 18(L) 24 - 32 mEq/L [facility] Blood specimen (specimen) 12/31/2013 19:46 EDT 12/31/2013 20:03 EDT Haim Mendoza MD CHEMISTRY & BLOOD G ORDERABLES [facility] [address] [place] [address] * (ABNORMAL) SCREENING GLUCOSE (12/31/2013 19:46 EDT) Glucose, Screening 179(H) 70 - 100 mg/dl [facility] Blood specimen (specimen) 12/31/2013 19:46 EDT 12/31/2013 20:03 EDT Haim Mendoza MD CHEMISTRY & BLOOD G ORDERABLES Performing Organization Address [facility] Co de Phone Number [facility] [address] [place] [address] documented in this encounter Visit Diagnoses Diagnosis Depression with suicidal ideation- Primary Depressive disorder, not elsewhere classified Second trimester state, incidental Type 2 diabetes mellitus ([facility]) Type II or unspecified type [...] 12/31/2013 documented in this encounter Care Teams Host/Hostess Ground Relationship Specialty Start Date End Date Annette Sidhu, SPUD SORTER [address] [place] [phone] PCP - General 03/19/13 07/06/19 documented as of this encounter
--- OUTSIDE RECORDS SUMMARY | 2024-02-17 18:42 | XMS_ITS | Encounter Summary ---
Author Organization [facility] Address [address] [place] [address] Care Team Providers Care Refractory Mixer Name Role Phone Annette Sidhu APRN Primary Care Provider [phone] Reason for Visit * Reason Onset Date Comments Appointment Related 12/01/2013 Encounter Details Date Type Department Care Team (Late st Contact Info) Description 12/01/2013 Telephone [facility] OBGYN Services - [address] [address] Khalida Quiñones MD Appointment Related Social History [...] Telephone Encounter - Mecca Arias - 12/01/2013 5571 EDT Ryan NOS'ed yesterday for a DIC [...] 2 diabetes mellitus ([facility]) 8.7(07/07/2015 5:05 EST) Annmarie Lopez documented as of this encounter Visit Diagnoses Not on filedocumented in this encounter Care Teams Refractory Mixer Relationship Specialty Start Date End Date Annette Sidhu, RAILROAD SIGNAL OPERATOR [address] [place] [phone] PCP - General 03/19/13 07/06/19 documented as of this encounter
--- OUTSIDE RECORDS SUMMARY | 2024-02-17 18:42 | XMS_ITS | Encounter Summary ---
Author Organization [facility] Address [address] [place] [address] Care Team Providers Care Commercial Glazier Name Role Phone Annette Sidhu APRN Primary Care Provider Reason for Referral * LANG INTERPRETER (Routine) - Closed Specialty Diagnoses / Procedures [facility]erred To Contact Diagnoses Diabetes mellitus, antepartum(138.03) Procedures MCC FOLLOW-UP Eduardo Friend MD [address] [place] [address] [place] [address] Referral ID Status Reason Start Date Expiration Date Visits Re quested Visits Authorized [id number] Closed 02/22/2014 1 1 Reason for Visit * Reason Comments Routine Visit Encounter Details Date Type Department Care Team (Late Contact Info) Description 02/22/2014 14:00 EDT Routine [facility] Obstetrics & Midwifery - [address] [phone] Charity Onofre MD [address] [place] [address], [address] [place] [address] GA: 25w0d Social History Tobacco [...] Notes * Eduardo Friend MD - 02/22/2014 3489 EDT Subjective Guzman Jean is a 38 [...] Opthalmology- august 2013 TSH- 1.06 HgbA1c- 7.4 MCC Detailed - [...] Opthalmology- august 2013 TSH- 1.06 HgbA1c- 7.4 MCC Detailed - [...] Component Type 2 diabetes mellitus ([facility]) 8.7(07/07/2015 5:05 EST) No Annmarie Vigil documented as of this encounter Procedures Procedure Name Priority Date/Time Associated Diagnosis Comments MCC FOLLOW-UP Routine 03/08/2014 10:12 EST Diabetes mellitus, antepartum(648.03) documented in this encounter Results * MCC FOLLOW-UP (03/08/2014 10:12 EST) Anatomical Region Laterality [...] ?1,085 g 39% Gibson Calculated by: Hadlock ([id number]) EFW (lb) ?? 2 lb EFW (oz) ?? 6 oz Cephalic index 0.68 ?<1% Chitty HC / AC ?1.06 FL / BPD ?? 0.81 FL / AC ?0.22 MVP ?4.9 cm ZHENG ?14.1 cm FHR ?169 bpm Head / Face / Neck Customer Service Professional 5.0 mm Method ======== Transabdominal ultrasound examination, Voluson E8. Suboptimal view: limited by maternal body habitus. Impression [id number] Follow-up obstetrical ultrasound This is a garcia [...] 1,085 g 39% Gibson Calculated by: Hadlock ([id number]) EFW (lb) 2 lb EFW (oz) 6 oz Cephalic index 0.68 <1% Chitty HC / AC 1.06 FL / BPD 0.81 FL / AC 0.22 MVP 4.9 cm ZHENG 14.1 cm FHR 169 bpm Head / Face / Neck Customer Service Professional 5.0 mm Method ======== Transabdominal ultrasound examination, Voluson E8. Suboptimal view: limited by maternal body habitus. Impression [id number] Follow-up obstetrical ultrasound This is a garcia gestation. biometry is consistent with prior dating. Except where noted above, the anatomy was not reviewed in detail as this is a follow-up study and the anatomy was previously assessed. Normal fluid and movement are noted. The placental cord insertion appears normal on today's study. Follow-up Follow-up as clinically indicated. Eduardo Friend MD IM US MCC ORDERABLE S * (ABNORMAL) HEMAGRAM (02/22/2014 14:55 [...] PF4 ORD ERABLES [facility] [address] [place] [address] * ANTIBODY SCREEN (02/22/2014 14:50 EDT) Antibody [...] 02/22/2014 documented in this encounter Care Teams Commercial Glazier Relationship Specialty Start Date End Date Annette Sidhu APRN [address] [place] [phone] PCP - General 03/19/13 07/06/19 documented as of this encounter
--- OUTSIDE RECORDS SUMMARY | 2024-02-17 18:42 | XMS_ITS | Encounter Summary ---
Author Organization [facility] Address [address] [place] [address] Care Team Providers Care Traffic Analysis Technician Name Role Phone Annette Sidhu APRN Primary Care Provider [phone] Reason for Visit * Reason Comments Diabetes Encounter Details Date Type Department Care Team (Latest Contact Info) Description 01/04/2014 14:30 EDT Office Visit [facility] Endocrinology - [address] [address] Unknown, Provider, Mfm, Cde Diabetes [...] * Gely Stokes - 01/11/2014 1225 EDT [facility] ENDOCRINOLOGY & DIABETES MATERNAL MEDICINE CLINIC DIABETES NUTRITION VISIT NOTE Guzman Jean [id number] PATIENT ID: Guzman Jean is a 38 y.o. female referred for [...] Type 2 diabetes mellitus ([facility]) 8.7(07/07/2015 5:05 EST) No Annmarie Vigil documented as of this encounter Visit Diagnoses Diagnosis Diabetes mellitus, antepartum(648.03)- Primary Diabetes mellitus, antepartum documented in this encounter Care Teams Traffic Analysis Technician Relationship Specialty Start Date End Date Annette Sidhu, BIOINFORMATICS ANALYST [address] [place] [phone] PCP - General 03/19/13 07/06/19 documented as of this encounter
--- OUTSIDE RECORDS SUMMARY | 2024-02-17 18:42 | XMS_ITS | Encounter Summary ---
Author Organization [facility] Address [address] [place] [address] Care Team Providers Care Data Manager Name Role Phone Annette Sidhu APRN Primary Care Provider Reason for Visit * Reason Comments Gestational Diabetes Encounter Details Date Type Department Care Team (Latest Contact Info) Description 01/18/2014 13:45 EDT Office Visit [facility] Endocrinology - [address] [phone] Unknown, Provider, Khalida Quiñones MD , High [...] Eduard Pineda MD - 01/18/2014 1406 EDT [facility] Diabetes Follow-Up Note CHIEF COMPLAINT: Guzman Jean [...] She has hada previous visit with a nail kegger. She participates in exercise intermittently. (Fbs 100, 2hrr after supper almost up to 140) An PHILIPPE inhibitor/angiotensin II receptor oleg is contraindicated. She does not see a fisheries management biologist.Eye exam is current. . Patient's home regimen [...] Referred to diabetic education program. Referred to nail kegger yes . Patient referred to eye manager medicare for annual dilated eye exam. Lifestyle modifications: [...] Type 2 diabetes mellitus ([facility]) 8.7(07/07/2015 5:05 EST) No Annmarie Vigil documented as of this encounter Visit Diagnoses Diagnosis Type II or unspecified type diabetes mellitus without mention of complication, not stated as uncontrolled- Primary Depression complicating , antepartum Mental disorders of mother, antepartum Abnormal maternal glucose tolerance, antepartum Unspecified essential hypertension documented in this encounter Care Teams Data Manager Relationship Specialty Start Date End Date Annette Sidhu APRN [address] [place] [phone] PCP - General 03/19/13 07/06/19 documented as of this encounter
--- OUTSIDE RECORDS SUMMARY | 2024-02-17 18:42 | XMS_ITS | Encounter Summary ---
Author Organization [facility] Address [address] [place] [address] Care Team Providers Care Sales Analyst Name Role Phone Annette Sidhu APRN Primary Care Provider Reason for Visit * Reason Onset Date Comments Routine Visit 02/18/2014 Encounter Details Date Type Department Care Team (Late st Contact Info) Description 02/18/2014 Orders Only [place] OBGYN Services - [address] [phone] Charity Onofre MD [address] [place] [address], [address] [place] [address] Supervision of other high-risk (V23.89) [...] de Phone Number [facility] [address] [place] [address] documented in this encounter Visit Diagnoses Diagnosis Supervision of other high-risk (V23.89)- Primary Supervision of other high-risk documented in this encounter Care Teams Sales Analyst Relationship Specialty Start Date End Date Annette Sidhu APRN [address] [place] [phone] PCP - General 03/19/13 07/06/19 documented as of this encounter
--- OUTSIDE RECORDS SUMMARY | 2024-02-17 18:42 | XMS_ITS | Encounter Summary ---
Author Organization [facility] Address [address] [place] [address] Care Team Providers Care Compliance Representative Dealer Name Role Phone Annette Sidhu APRN Primary Care Provider Encounter Details Date Type Department Care Team (Late st Contact Info) Description 10/20/2013 Orders Only [facility] OBGYN Services - [facility] [address] [place] [address] Yoana Das, RN [address] [place] [address] Unspecified complication of , antepartum (Primary Dx) [...] Type 2 diabetes mellitus ([facility]) 8.7(07/07/2015 5:05 EST) No Annmarie Vigil documented as of this encounter Visit Diagnoses Diagnosis Unspecified complication of , antepartum- Primary documented in this encounter Care Teams Compliance Representative Dealer Relationship Specialty Start Date End Date Annette Sidhu, SAMPLE HAND [address] [place] [phone] PCP - General 03/19/13 07/06/19 documented as of this encounter
--- OUTSIDE RECORDS SUMMARY | 2024-02-17 18:42 | XMS_ITS | Encounter Summary ---
Author Organization [facility] Address [address] [place] [address] Care Team Providers Care Tentering Machine Feeder Name Role Phone Annette Sidhu APRN Primary Care Provider [phone] Reason for Visit * Reason Onset Date Comments Hypertension 01/25/2014 Encounter Details Date Type Department Care Team (Late st Contact Info) Description 01/25/2014 Orders Only [facility] OBGYN Services - [address] [address] Cary Christensen, RN Social History Tobacco Use [...] pharmacy for Labetalol per Dr. Friend. Received Invrep Online message from patient requesting Rx be sent to [facility]. Order placed, will write Guzman back and let her know. documented in this encounter Plan of Treatment Not on file documented as of this encounter Goals Goal Patient Goal Type Associated Problems Recent Progress Patient-Stated? Author HEMOGLOBIN A1C < 7.0 Result Component Type 2 diabetes mellitus ([facility]) 8.7(07/07/2015 5:05 EST) Annmarie Lopez documented as of this encounter Visit Diagnoses Not on filedocumented in this encounter Care Teams Tentering Machine Feeder Relationship Specialty Start Date End Date Annette Sidhu APRN [address] [place] [phone] PCP - General 03/19/13 07/06/19 documented as of this encounter
--- OUTSIDE RECORDS SUMMARY | 2024-02-17 18:42 | XMS_ITS | Encounter Summary ---
Author Organization [facility] Address [address] [place] [address] Care Team Providers Care Energy Engineer Name Role Phone Annette Sidhu APRN Primary Care Provider Encounter Details Date Type Department Care Team (Late st Contact Info) Description 01/06/2014 Phlebotomy Only [address] [address] Auto Salvage Worker, Outpatient Type II or unspecified type diabetes [...] Type 2 diabetes mellitus ([facility]) 8.7(07/07/2015 5:05 EST) No Annmarie Vigil documented as of this encounter Visit Diagnoses Diagnosis Type II or unspecified type diabetes mellitus without mention of complication, not stated as uncontrolled Abnormal maternal glucose tolerance, antepartum documented in this encounter Care Teams Energy Engineer Relationship Specialty Start Date End Date Annette Sidhu APRN [address] [place] [address] [phone] PCP - General 03/19/13 07/06/19 documented as of this encounter
--- OUTSIDE RECORDS SUMMARY | 2024-02-17 18:42 | XMS_ITS | Encounter Summary ---
Author Organization [facility] Address [address] [place] [address] Care Team Providers Care Waiter/Waitress Dining Car Name Role Phone Annette Sidhu APRN Primary Care Provider Reason for Visit * Reason Comments Routine Visit Back Pain upper middle Encounter Details Date Type Department Care Team (Late st Contact Info) Description 12/25/2013 10:00 EDT Routine [facility] Obstetrics & Midwifery - [facility] [address] [place] [address] Eduardo Friend MD [address] [place] [phone] [place]: [id number] Social History Tobacco Use Types [...] for her Detailed ultrasound at 20 weeks. [place] results - not at increased risk for [...] 2 diabetes mellitus ([facility]) 8.7(07/07/2015 5:05 EST) No Annmarie [...] daily. added in this encounter Care Teams Waiter/Waitress Dining Car Relationship Specialty Start Date End Date Annette Sidhu APRN [address] [place] [phone] PCP - General 03/19/13 07/06/19 documented as of this encounter
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
--- OUTSIDE RECORDS SUMMARY | 2024-02-17 18:42 | XMS_ITS | Encounter Summary ---
Author Organization [facility] Address [address] [place] [address] Care Team Providers Care Analyst Business Analysis Name Role Phone Annette Sidhu APRN Primary Care Provider Encounter Details Date Type Department Care Team (Late st Contact Info) Description 01/18/2014 10:07 EDT - 01/18/2014 23:59 EDT Hospital Encounter [facility] [phone] Elke Stevenson MD [address] [facility], [address] [place] [phone] Discharge Disposition: Home or Self Care Social [...] Self Group Home documented in this encounter Plan of Treatment Not on file documented as of this encounter Goals Goal Patient Goal Type Associated Problems Recent Progress Patient-Stated? Author HEMOGLOBIN A1C < 7.0 Result Component Type 2 diabetes mellitus ([facility]) 8.7(07/07/2015 5:05 EST) Annmarie Lopez documented as of this encounter Visit Diagnoses Not on filedocumented in this encounter Care Teams Analyst Business Analysis Relationship Specialty Start Date End Date Annette Sidhu APRN [address] [place] [phone] PCP - General 03/19/13 07/06/19 documented as of this encounter
--- OUTSIDE RECORDS SUMMARY | 2024-02-17 18:42 | XMS_ITS | Encounter Summary ---
Author Organization [facility] Address [address] [place] [address] Care Team Providers Care Rotary Surface Grinder Name Role Phone Annette Sidhu APRN Primary Care Provider [phone] Encounter Details Date Type Department Care Team (Late st Contact Info) Description 12/11/2013 Results Only [facility] Obstetrics & Midwifery - [address] [address] Khalida Quiñones MD Social History Tobacco Use [...] Component Type 2 diabetes mellitus ([facility]) 8.7(07/07/2015 5:05 EST) No Annmarie Vigil documented as of this encounter Procedures Procedure Name Priority Date/Time Associated Diagnosis Comments REFERRAL TEST 1 Routine 12/11/2013 10:51 EDT documented in this encounter Results * REFERRAL TEST 1 (12/11/2013 10:51 EDT) Test Name HARMONY WITH Y ANALYSIS [facility] Result See Pathology Scanned Report in [facility]. [facility] Comment: Assayed at [facility], [place], [place] (Note) Trisomy 21: ??Low Risk Trisomy 18: ??Low Risk Trisomy 13: ??Low Risk Ref Lab INTEGRATED [facility] Date Sample Shipped [phone] [facility] 12/11/2013 10:5 1 EDT 12/11/2013 13:01 EDT Khalida Quiñones MD LAB INFO SERVICE AND SUPPORT & PHONE RESULT [facility] [address] [place] [address] documented in this encounter Visit Diagnoses Not on filedocumented in this encounter Care Teams Rotary Surface Grinder Relationship Specialty Start Date End Date Annette Sidhu APRN [address] [place] [phone] PCP - General 03/19/13 07/06/19 documented as of this encounter
--- OUTSIDE RECORDS SUMMARY | 2024-02-17 18:43 | XMS_ITS | Encounter Summary ---
Author Organization [facility] Address [address] [place] [address] Care Team Providers Care Gunner'S Mate G Name Role Phone Bhargav Mccarty APRN Primary Care Provider Encounter Details Date Type Department Care Team (Latest Contact Info) Description 10/06/2013 14:45 EDT - 10/06/2013 23:59 EDT Hospital Encounter [address] [address] Aminta Holland MD [address] [place] [address] [address] [place] [address] Discharge Disposition: Home or Self [...] mcg/actuation nasal sprayIndications:Aller gic rhinitis Instill 1 [place] into both nostrils daily. 1 Bottle 2 [...] Code Departure Means Destination Home or Self Shelter documented in this encounter Plan of Treatment [...] 7.0 Result Component Type 2 diabetes mellitus ([facility]) 8.7(07/07/2015 5:05 EST) Annmarie Lopez documented [...] Result No Chlamydia trachomatis DNA detected by upper marker mediated amplification. [facility] GC Result No Neisseria gonorrhoeae DNA detected by upper marker mediated amplification. [facility] 10/06/2013 20:3 7 EDT 10/06/2013 20:37 EDT Aminta Holland MD MICROBIOLOGY - GENERAL ORDERABLES Performing Organization Address [facility] Co de Phone Number [facility] [address] [place] [address] * SYPHILIS SEROLOGY (10/06/2013 14:56 EDT) Syphilis Serology Interpretation: Nonreactive [facility] Comment:Reference Range: Non reactive 10/06/2013 14:5 6 EDT 10/06/2013 15:58 EDT Aminta Holland MD IMMUNOLOGY A ND SEROLOGY ORDERABLES Performing Organization Address [facility] Co de Phone Number [facility] [address] [place] [address] * HIV 1/2 ANTIBODY (10/06/2013 14:56 EDT) HIV 1/2 Antibody Negative [facility] Comment: If acute HIV-1 infection is suspected in a high risk patient, submit plasma specimen for HIV-1 RNA quantification test. Reference Range: ??Negative Assayed utilizing [employer] chemiluminescent technology. 10/06/2013 14:5 6 EDT 10/06/2013 15:58 EDT Aminta Holland MD IMMUNOLOGY A ND SEROLOGY ORDERABLES Performing Organization Address [facility]/ZIP Co de Phone Number [facility] [address] [place] [address] * RUBELLA IGG ANTIBODY (10/06/2013 14:56 EDT) Rubella IgG Ab Positive [facility] Comment: Positive results suggest immunity to Rubella infection. 10/06/2013 14:5 6 EDT 10/06/2013 15:58 EDT Aminta Holland MD CHEMISTRY & BLOOD GAS ORDERABLES Performing Organization Address [facility] Co de Phone Number [facility] [address] [place] [address] * HEPATITIS B SURFACE ANTIGEN (10/06/2013 14:56 EDT) Hepatitis B Surface Ag Negative [facility] Comment:Reference Range: Neg ative 10/06/2013 14:5 6 EDT 10/06/2013 15:58 EDT Aminta Holland MD CHEMISTRY & BLOOD GAS ORDERABLES Performing Organization Address [facility] Co de Phone Number [facility] [address] [place] [address] * BB STUDY (10/06/2013 14:56 EDT) ABO and Rh Type A NEGATIVE [facility] Antibody Screen Neg [facility] 10/06/2013 14:5 6 EDT 10/06/2013 15:58 EDT Aminta Holland MD BLOOD BANK T ESTS Performing Organization Address [facility] Co de Phone Number [facility] [address] [place] [address] * (ABNORMAL) DIFFERENTIAL (10/06/2013 14:56 EDT) % [...] HEMATOLOGY & PF4 ORDERABLES Performing Organization Address [facility] Co de Phone Number [facility] [address] [place] [address] * HEMAGRAM (10/06/2013 14:56 EDT) WBC 9.58 4.0 - 12.4 K/cmm [facility] RBC 4.20 3.86 - 5.04 [...] HEMATOLOGY & PF4 ORDERABLES Performing Organization Address [facility] de Phone Number [facility] [address] [place] [address] * VARICELLA IGG ANTIBODY (10/06/2013 14:56 EDT) [facility] Varicella IgG Ab Interpretati on: Positive [facility] Comment: Presence of detectable Varicella Zoster virus IgG antibodies. 10/06/2013 14:5 6 EDT 10/06/2013 15:58 EDT Aminta Holland MD IMMUNOLOGY A ND SEROLOGY ORDERABLES Performing Organization Address [facility] Phone Number [facility] [address] [place] [address] * TSH (10/06/2013 14:56 EDT) [facility] TSH 1.06 0.35 - 5.00 uIU/ml [facility] 10/06/2013 14:5 6 EDT 10/06/2013 15:58 EDT Aminta Holland MD CHEMISTRY & BLOOD GAS ORDERABLES Performing Organization Address [facility] de Phone Number [facility] [address] [place] [address] * (ABNORMAL) HCG FOR (10/06/2013 14:56 EDT) [facility] Quant Beta HCG, Preg 1,274(H) <5 mIU/ml [facility] Comment: Reference Range: Negative = <5 Indeterminate = 5-25 recommend repeat in 48 hours. Positive = >25 10/06/2013 14:5 6 EDT 10/06/2013 15:58 EDT Aminta Holland MD CHEMISTRY & BLOOD GAS ORDERABLES Performing Organization Address [facility] Co de Phone Number [facility] [address] [place] [address] * HEMOGLOBIN A1C (10/06/2013 14:56 EDT) Hemoglobin A1C 7.4 % [facility] Comment: Reference Range: <5.7% Normal [...] & BLOOD GAS ORDERABLES Performing Organization Address [facility] Phone Number [facility] [address] [place] [address] * (ABNORMAL) CREATININE (10/06/2013 14:56 EDT) Creatinine 0.50(L) 0.52 - 1.04 mg/dl [facility] GFR, Calculated >60 >60 ml/min/1.7 3m2 [facility] 10/06/2013 14:5 6 EDT 10/06/2013 15:58 EDT Aminta Holland MD CHEMISTRY & BLOOD GAS ORDERABLES Performing Organization Address [facility] Co de Phone Number [facility] [address] [place] [address] * VITAMIN B12 (10/06/2013 14:56 EDT) Pathologist [facility] Vitamin B-12 385 211 - 911 pg/ml [facility] 10/06/2013 14:5 6 EDT 10/06/2013 15:58 EDT Aminta Holland MD CHEMISTRY & BLOOD GAS ORDERABLES [facility] [address] [place] [address] * PAP TEST- RESULT ONLY (10/06/2013 0:00 EDT) Pathologist [facility] Pathology Report: CYTOPATHOLOGY REPORT Reports generated via electronic interface contain original data; however they are lacking the format of the original report. Caution should be taken when reading/interpreti ng unformatted reports. Name: ? HILDA CROWLEY ? Accession #: ? [id number] ? : ? 1975 (Age: 38) ??F [...] types 16,18,31,33,35, 39,45,51,52,56,58, 59,66, and 68 by upper marker mediated amplification. Comments Document reviewed and electronically signed by: ? System Interface ? Report date: 10/16/2013 By the signature above, the attending physician certifies that he/she has personally conducted a gross and/or microscopic examination of the described specimens and rendered or confirmed the above diagnosis. End of Report [facility] 10/06/2013 10/07/2013 Aminta Holland MD PATHOLOGY OR DERABLES Performing Organization Address City/State/[facility] Co de Phone Number [facility] [address] [place] [address] documented in this encounter Visit Diagnoses Not on filedocumented in this encounter Care Teams Gunner'S Mate G Relationship Specialty Start Date End Date Bhargav Mccarty, LEAD BASED PAINT TECHNICIAN [address] [place] [phone] PCP - General 03/19/13 07/06/19 documented as of this encounter
--- OUTSIDE RECORDS SUMMARY | 2024-02-17 18:43 | XMS_ITS | Encounter Summary ---
Author Organization [facility] Address [address] [place] [address] Care Team Providers Care Air Hose Coupler Name Role Phone Annette Sidhu APRN Primary Care Provider [phone] Encounter Details Date Type Department Care Team ([facility] Contact Info) Description 04/14/2013 Phlebotomy Only [facility] [address] [place] [address] Mutuel Department Manager, Outpatient Social History Tobacco Use Types Packs/Day [...] on filedocumented in this encounter Care Teams Air Hose Coupler Relationship Specialty Start Date End Date Annette Sidhu APRN [address] [place] [phone] PCP - General 03/19/13 07/06/19 documented as of this encounter
--- OUTSIDE RECORDS SUMMARY | 2024-02-17 18:43 | XMS_ITS | Encounter Summary ---
Author Organization [facility] Address [address] [place] [address] Care Team Providers Care Chemical Treatment Plant Technician Name Role Phone Annette Sidhu APRN Primary Care Provider Encounter Details Date Type Department Care Team (Latest Contact Info) Description 05/06/2013 11:51 EST - 05/19/2013 13:17 EST Hospital Encounter [facility] Inpatient Psychiatry Unit [address] [place] [address] Rosario Justin MD Depression (Primary Dx); Suicidal ideation; Suicide attempt by drug ingestion (CMS-HCC) ([facility]); Unspecified episodic mood disorder Discharge Disposition: Home [...] of discharge: Rosario Justin MD DISCHARGE DIAGNOSIS: Transfer I: Depressive disorder NOS Transfer II: Borderline personality disorder Transfer III: Diabetes mellitus, type 2; Chronic hip and back pain; PCOS Transfer IV: Consequences due to mental illness, lack of protective attachment to children, family or boyfriend, isolated Transfer V: GAF on admission: 25, on discharge: [...] method, for which she was hospitalized at [facility]. 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 She believes that shemay have been [...] out in desperation to a psychiatrist at [facility] (Dr. Angel),and had seen him once [...] her the summer texted her towish her [facility] Mitali and then again on 48 [...] face [facility] She states that although she does not [...] Hospital Course: The patient was admitted to [facility] inpatient psychiatry unit, on a voluntary basis, [...] later obtained from Dr. Terry Angel at [facility] as well as Dr. Jasper Lerma at [facility]. The patient is a 37-year-old woman with [...] disorder and ADHD given to her at [facility] in Nov 2012. Per the discharge summary from [facility], pt's diagnoses included Depressive Disorder NOS and [...] pt started on a stimulant while at [facility] to address anergia and poor concentration associated [...] of a broken opiateanalgesic contract with a [facility] PCP, we avoided use of benzodiazepines. On [...] Outpatient or Partial Hospitalization Program such as [facility] or [facility], particularly in the context of her BPD [...] to followup with intensive outpatient (PHP) at [facility]. Given the pt's history of chronic hip and back pain, Flexeril 10 mg TID , lidocaine patch, and tramadol 100 mg TID were resumed. Opiates were avoided though a pain consult was requested. Per pain validation consultant, Dr. Eduardo Flynn, it was considered [...] increased to 1500 mg and soon thereafter [id number] mg. BG levels were moderately well controlled [...] her medications were not properly managed, a admissions representative from patient advocacy attended the second [...] a number of cognitive distortions such as ypi-vk-imrtxpg thinking, overgeneralization, catastrophizing. Shedenies SI on evaluation [...] spray Commonly known as: FLONASE Instill 1 [place] into both nostrils daily. FOCALIN XR 15 [...] to Get Your Medications You need to burr picker these prescriptions. We sent some of them to a specific pharmacy. Go to these places to get your medications. [facility] [place], [place] - [address] - cholecalciferol (Vitamin D3) 1,000 unit tablet - QUEtiapine [address] [facility] [id number] Disposition: 1. Psychiatrist: Dr Angel, May 19 at 2:30 pm. 2. PCP: Dr Annette Maldonado, May 19 at 5:45 pm. 3. [facility] ([phone]) for an intake appointment on May 21 at 2:00 pm. 4. Jackie Bernal from [facility] will contact pt to arrange a follow-up appointment with a [facility] case managers. Lynn Rutherford MD PGY-2, Psychiatry Attending attestation: I saw and evaluated the patient 05/19/13 prior to discharge. Discharge and followup plan were reviewed with the patient. I agree with the summary and discharge plan as documented in the resident's discharge summary (with edits in italics.) Total time spent on day of discharge:35 min. Rosario Justin M.D. pager [phone] Attending, Inpatient Psychiatry Service documented in this encounter Discharge Instructions * Appointments* Stephanie Velázquez - 05/19/2013 11:28 EST Your Psychiatrist, Dr Angel, has an appointment with you today, May 19, at 2:30 pm. You have an appointment with your PCP, Dr Annette Maldonado today, May 19, at 5:45 pm. [facility] ([phone]) for an intake appointment on May 21 at 2:00 pm. Call to confirm your appointment. Jackie Bernal from [facility] will contact you to arrange a follow-up appointment with a [facility] case managers. documented in this encounter Medications at Time [...] mcg/actuation nasal sprayIndications:Aller gic rhinitis Instill 1 [place] into both nostrils daily. 1 Bottle 2 [...] documented in this encounter Progress Notes * TILE PICKER, IDANIA 2 - 05/25/2013 0918 EST * [...] PCP and her psychiatrist. Pt also called [facility] and said she talked to Ursula Denson. She has an intake appt onT. Met again with pt with her father present and reviewed aftercare appts. Pt was future-oriented and seemed to be looking forward to her [facility] appt on . * AlyArlene - 05/19/2013 0850 EST Family Medicine Consult [...] has an appointment this afternoon at the [facility] with her PCP at 5:15pm. If [...] regimen. Connected with psychiatrist and PCP at [facility] who will both see her today. Arlene Aly MD 05/19/2013 12:43 * Selvin Ratliff - 05/18/2013 8690 EST [employer] S/O Pt. attended [facility] [...] discharge tomorrow afternoon. Plans to [facility]. Discussed possibility of lamotrigine on [...] injection ??? fluticasone (FLONASE) nasal spray 1 [place] nasal - both Daily PRN ??? glucagon [...] a number of cognitive distortions such as mhb-es-nzvhkph thinking, overgeneralization, catastrophizing, anddisqualifying the positive. She [...] Fingerstick 210 (*) 70 - 100 mg/dl Chemical Lab Supervisor ID [id number] GLUCOSE, GLUCOMETER Collection Time 05/18/13 8:09 Result Value Range Glucose, Fingerstick 126 (*) 70 - 100 mg/dl Chemical Lab Supervisor ID [id number] GLUCOSE, GLUCOMETER Collection Time 05/18/13 12:17 Result Value Range Glucose, Fingerstick 145 (*) 70 - 100 mg/dl Chemical Lab Supervisor ID [id number] Other studies: 05/16 C-reactive protein 1.2 (compared [...] disorder and ADHD given to her at [facility]. Mood diagnosis was Depressive Disorder NOS and [...] utpatient or Partial Hospitalization Program such as [facility] or [facility], particularly in the context of her BPD [...] to followup with intensive outpatient (PHP) at [facility]. D3 insufficient and we'll replace. C-reactive protein slightly elevated, will not pursue further at this time. Diagnosis: Transfer I: Depressive disorder NOS, r/o Bipolar disorder Transfer II: Borderline personality disorder Transfer III: Diabetes mellitus, type 2; Chronic hip [...] have personally seen and examined the patient [id number]. Treatment plan reviewed with the team. I [...] the resident's note. ROSARIO JUSTIN MD Pager [phone] Attending, Inpatient Psychiatry, [facility] * Sadie Webster RN - 05/18/2013 1358 [...] PhD - 05/17/2013 0811 EST 05/17/2013 ATTENDING MECHANICAL ADJUSTER NOTE: TODAY'S CHIEF COMPLAINT: I am so [...] she has plans to go to the [place] [facility] about it at discharge. I [...] QHS ??? fluticasone (FLONASE) nasal spray 1 [place] nasal - both Daily PRN ??? glucagon [...] Justin tomorrow. Marcin Armstrong MD,PHD Attending Psychiatrist dynamics ax consultant Pager [phone] * Marcin Armstrong MD PhD - 05/16/2013 0834 EST 05/16/2013 ATTENDING MECHANICAL ADJUSTER NOTE: TODAY'S CHIEF COMPLAINT: Everything is fine [...] QHS ??? fluticasone (FLONASE) nasal spray 1 [place] nasal - both Daily PRN ??? glucagon [...] treatment plan. Marcin Armstrong MD,PHD Attending Psychiatrist dynamics ax consultant Pager [phone] * Eduardo Flynn MD - 05/16/2013 0012 EST HIM PROGRESS / FOLLOWUP NOTE - 05/15/2013 SUBJECTIVE: Chronic pain evaluation requested by Dr Justin. IDENTIFYING DATA: A 37-year-old white female living in the [facility] with a boyfriend. She has children ages 11 and 4. She shares custody with her whom she has been from for more than a year and a half in the process of divorce. 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 HISTORY OF PRESENT ILLNESS: Case discussed with Dr Justin, record has not yet been reviewed. He described patient had a suicide attempt with injection of insulin, which the patient's boyfriend is aware of. She had been at the [facility] this summer. There was concern about hyponatremia [...] since her 20s, having 1 hospitalization at [facility] after overdose. She describes working with Dr [facility], [facility] psychiatrist, for which he increased the [...] a person at home. 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 These have been of limited benefit. 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 She enjoys that job. She may [...] the present provider, Annette Maldonado, at the [facility]. She does have a contract there [...] been diagnosed. DEVELOPMENTAL HISTORY: Raised in the [facility], having 2 older siblings. Parents at [...] able to sit up in bed. IMPRESSION: Transfer I: Bipolar spectrum disorder. Nicotine dependence. Transfer II: Borderline personality disorder, reference per Dr Justin. Transfer III: Low back pain with radicular symptoms, status post left labral tear repair. Transfer IV: Stressors moderate, related to Transfer I and Transfer III. Transfer V: 35. This patient reports complex mood [...] be in that schedule since return from [facility], and is anticipating establishing a new psychotherapist with [facility]. I am aware that there is [...] contact her primary care provider at the [facility], Annette Maldonado, to see if she [...] - Eduardo Flynn MD kn Dictation ID: [id number] * Jackie Mann - 05/15/2013 6753 EST Open Art: S/O: Pt came in [...] her re plans to have her meet [facility] Nurse, Jackie Bernal, later today.Also briefly discussed [...] which one. Advised her she could contact [facility] to self-refer and she said she would [...] discussed Dr. Flynn's impressions and recommendations with validation consultant prior to meeting with patient. She did not voice any concerns about consult at the time. Clearly stated she no longer felt suicidal and felt her children as deterrents was much stronger. She voiced desire to discharge Saturday and is considering following up with [facility] preferable to [facility]. Asks if there is Psychiatric availability at [...] QHS ??? fluticasone (FLONASE) nasal spray 1 [place] nasal - both Daily PRN ??? glucagon [...] a number of cognitive distortions such as puv-je-voiplku thinking, overgeneralization, catastrophizing, and disqualifying the positive. [...] Fingerstick 127 (*) 70 - 100 mg/dl Chemical Lab Supervisor ID [id number] GLUCOSE, GLUCOMETER Collection Time 05/16/13 20:53 Result Value Range Glucose, Fingerstick 115 (*) 70 - 100 mg/dl Chemical Lab Supervisor ID [id number] GLUCOSE, GLUCOMETER Collection Time 05/17/13 8:02 Result Value Range Glucose, Fingerstick 159 (*) 70 - 100 mg/dl Chemical Lab Supervisor ID [id number] GLUCOSE, GLUCOMETER Collection Time 05/17/13 11:56 Result Value Range Glucose, Fingerstick 136 (*) 70 - 100 mg/dl Chemical Lab Supervisor ID [id number] Other studies:N/A Assessment/Formulation: 37-year-old woman with a [...] disorder and ADHD given to her at [facility]. Mood diagnosis was Depressive Disorder NOS and [...] utpatient or Partial Hospitalization Program such as [facility] or [facility], particularly in the context of her BPD diagnosis. Her engagement with providers waxed an waned since admission. Though she continues to hope for medication or ECT to relieve her symptoms, she has more recently expressed willingness to attend [facility] or [facility] on discharge. She has denied SI consistently, [...] passes and re-assess her status Saturday. Diagnosis: Transfer I: Depressive disorder NOS, r/o Bipolar disorder Transfer II: Borderline personality disorder Transfer III: Diabetes mellitus, type 2; Chronic hip [...] Will continue to review medication regimen with pharmacy tech customer service, Dr. Ba Matson - ECT consult is [...] Will re-assessthis week. Plans to go to [facility] or [facility] upon discharge. Lynn Rutherford MD 05/17/2013 15:24 Psychiatry Attending Attestation: I have personally seen and examined the patient [id number]. Treatment plan reviewed with the team. I [...] in the resident'snote. ROSARIO JUSTIN MD Pager [phone] Attending, Inpatient Psychiatry, [facility] * Jackie Mann - 05/14/2013 1621 EST [...] pt that I had referred her to [facility] as she had previously agreed and should expect a visitfor intake tomorrow afternoon. Pt seemed pleased with this. Explained to her re the different [facility] programs and she reported she plans to go to either [facility] or [facility] after d/c as another pt told her [...] problem list and management for each problem [id number]. Noted to pt that oxcarbazepine can cause hyponatremia as well as irritability, depression. Provided pt with the information and encouraged her to make the decision of tapering off or continuing the medication. Pain consult tomorrow. Notably, pt reports thatshe plans to go to [facility] or [facility] upon discharge. Inquires about differences between the two programs. Notes that another pt reported to her that [facility] saved her life and pt seems positively [...] BID ??? fluticasone (FLONASE) nasal spray 1 [place] nasal - both Daily PRN ??? glucagon [...] focus on medications; notable for cognitive distortions (ymn-me-ircbiza thinking), negativity. No AH/VH. Insight limited. Judgment [...] Fingerstick 129 (*) 70 - 100 mg/dl Chemical Lab Supervisor ID [id number] GLUCOSE, GLUCOMETER Collection Time 05/13/13 21:07 Result Value Range Glucose, Fingerstick 203 (*) 70 - 100 mg/dl Chemical Lab Supervisor ID [id number] GLUCOSE, GLUCOMETER Collection Time 05/14/13 7:46 Result Value Range Glucose, Fingerstick 124 (*) 70 - 100 mg/dl Chemical Lab Supervisor ID [id number] ELECTROLYTES Collection Time 05/14/13 7:54 Result Value Range Sodium 136 136 - 145 mEq/L Potassium 4.4 3.5 - 5.0 mEq/L Chloride 100 96 - 110 mEq/L CO2 26 24 - 32 mEq/L GLUCOSE, GLUCOMETER Collection Time 05/14/13 12:03 Result Value Range Glucose, Fingerstick 130 (*) 70 - 100 mg/dl Chemical Lab Supervisor ID [id number] Other studies:N/A Assessment/Formulation: 37-year-old woman with a [...] disorder and ADHD given to her at [facility]. Mood diagnosis was Depressive Disorder NOS and [...] Outpatient or Partial Hospitalization Program such as [facility] or [facility], particularly in the context of her BPD diagnosis. Her engagement with providers prior to today has been limited and dismissive at times. Relative to her desire for medication changes as a cure, she now expresses willingness to attend [facility] or [facility] on discharge. Today she denies SI and [...] a much more positive meeting, however. Diagnosis: Transfer I: Depressive disorder NOS, r/o Bipolar disorder Transfer II: Borderline personality disorder Transfer III: Diabetes mellitus, type 2; Chronic hip [...] Will continue to review medication regimen with pharmacy tech customer service, Dr. Ba Matson - ECT consult is [...] week and re-assess. Plans to go to [facility] or [facility] upon discharge. Lynn Rutherford MD 05/14/2013 15:24 Psychiatry Attending Attestation: I have personally seen and examined the patient [id number]. Treatment plan reviewed with the team. I [...] the resident's note. ROSARIO JUSTIN MD Pager [phone] Attending, Inpatient Psychiatry, [facility] * Hailee Douglass - 05/13/2013 1807 EST [...] that pt consider attending a PHP like [facility] or [facility], which she initially was oppo sed, stating that another pt told her he did not find [facility] helpful, but then accepted more information re [...] BPD. Will give pt more info re [facility] and [facility] tomorrow if she is more [...] Student Addendum: Additional Collateral Dr. Jasper Lerma ([facility]) at [phone] Lerma at [facility] today, 05/13/13. Dr. Lerma signed off on Hilda's discharge summary from [facility], where she was hospitalized 12/12-12/19 2012 due to SI in the context of a near-lethal suicide attempt one year prior to presentation at [facility]. Discussed with Dr. Lerma Hilda's statements that she was - in her words - diagnosed with bipolar disorder at [facility] at the [facility]. Also disclosed that Hilda's mother has stated that Hilda received a diagnosis of borderline personality disorder at [facility]. Dr. Lerma told me that, as stated in the discharge summary, her final diagnoses at the time of discharge were depressive disorder (296.8), PTSD (309.81), opiateabuse (305.5) and pain disorder (307.8). He again reiterated that the Focalin was prescribed for anergia and poor concentration and not for ADHD. Annette Maldonado (EXTRUDING PRESS ADJUSTER) at [facility] can be reached through [facility], the community resource officer ([employer]) at [phone] Reached Hilda's PCP, Annette Maldonado at [facility] today 05/13/13. She has been Hilda's PCP only since this past summer. Ryan's previous psychiatric diagnoses were discussed. MS3 explained that the diagnoses from [facility] d/c summary are not consistent with what Hilda and family believe she was diagnosedwith there. Annette says that she is not aware of Hilda officially having received a diagnosis of ADHD, BPD or BPAD prior to [facility]. Upon sharing with Annette that the team [...] 14:36 05/13/2013 pager [phone] * Daiana Michaels, [place] - 05/13/2013 5934 EST Daily Goals: S/O: Pt reported feeling [...] underimpression that diagnoses from prior stay at [facility] were bipolar disorder, ADHD, and PTSD. [facility] discharge summary states otherwise and diagnoses further clarified directly with her [facility] provider. After clarifying diagnoses, discussed appropriate treatment [...] written up by MS3: Dr. Jasper Lerma ([facility]) at [phone] Lerma at [facility] today, 05/13/13. Dr. Lerma signed off on Hilda's discharge summary from [facility], where she was hospitalized 12/12-12/19 2012 due to SI in the context of a near-lethal suicide attempt one year prior to presentation at [facility]. Discussed with Dr. Lerma Hilda's statements that she was - in her words - diagnosed with bipolar disorder and ADHD at the [facility]. Also disclosed that Hilda's mother has stated that Hilda received a diagnosis of borderline personality disorder at [facility]. Dr. Lerma told me that, as stated in the discharge summary,her final diagnoses at the time of discharge were depressive disorder (296.8), PTSD (309.81), opiate abuse (305.5) and pain disorder (307.8). He again reiterated that the Focalin was prescribed for anergia and poor concentration and not for ADHD. Annette Maldonado (EXTRUDING PRESS ADJUSTER) at [facility] can be reached through [employer] the community resource officer ([employer]) at [phone] Reached Hilda's PCP, Annette Maldonado at [facility] today 05/13/13. She has been Hilda's PCP only since this past summer. Ryan's previous psychiatric diagnoses were discussed. MS3 explained that the diagnoses from [facility] d/c summary are not consistent with what Hilda and family believe she was diagnosedwith there. Annette says that she is not aware of Hilda officially having received a diagnosis of ADHD, BPD or BPAD prior to [facility]. Upon sharing with Annette that the team [...] BID ??? fluticasone (FLONASE) nasal spray 1 [place] nasal - both Daily PRN ??? glucagon [...] for negativity, helplessness; notable for cognitive distortions (ptx-dj-cqcwone thinking); perseverative about perceived failures of the [...] Fingerstick 149 (*) 70 - 100 mg/dl Chemical Lab Supervisor ID [id number] GLUCOSE, GLUCOMETER Collection Time 05/12/13 20:50 Result Value Range Glucose, Fingerstick 173 (*) 70 - 100 mg/dl Chemical Lab Supervisor ID [id number] GLUCOSE, GLUCOMETER Collection Time 05/13/13 7:54 Result Value Range Glucose, Fingerstick 150 (*) 70 - 100 mg/dl Chemical Lab Supervisor ID [id number] Other studies:N/A Assessment/Formulation: 37-year-old woman with a [...] disorder and ADHD given to her at [facility]. Mood diagnosis was Depressive Disorder NOS and [...] Outpatient or Partial Hospitalization Program such as [facility] or [facility], particularly in the context of her BPD [...] with BPD, we will continue to recommend [facility] and limit the addition of medications. A second family meeting on 05/15 with parents and patient will allow further opportunity to review her presentation, address concerns, and explore treatment and aftercare options.We will remain open to exploringoptions with her particularly with consultation from Family Medicine, Pain, and Pharmacy. Diagnosis: Transfer I: Depressive disorder NOS, r/o Bipolar disorder Transfer II: Borderline personality disorder Transfer III: Diabetes mellitus, type 2; Chronic hip [...] now - will review medication regimen with pharmacy tech customer service, Dr. Ba Matson - ECT consult is [...] have personally seen and examined the patient [id number]. Treatment plan reviewed with the team. I [...] the resident's note. ROSARIO JUSTIN MD Pager [phone] Attending, Inpatient Psychiatry, [facility] * Rosario Justin [...] Continues to express disinterest in going to [facility] despite this being a strong clinical recommendation. [...] BID ??? fluticasone (FLONASE) nasal spray 1 [place] nasal - both Daily PRN ??? glucagon [...] Fingerstick 174 (*) 70 - 100 mg/dl Chemical Lab Supervisor ID [id number] GLUCOSE, GLUCOMETER Collection Time 05/12/13 7:54 Result Value Range Glucose, Fingerstick 137 (*) 70 - 100 mg/dl Chemical Lab Supervisor ID [id number] GLUCOSE, GLUCOMETER Collection Time 05/12/13 17:15 Result Value Range Glucose, Fingerstick 149 (*) 70 - 100 mg/dl Chemical Lab Supervisor ID [id number] Other studies:N/A Assessment/Formulation: 37-year-old woman presenting with chaotic life situation, recently overdosed on significant amount of Lantus, by report, treated for a number of days on the medical unit, now stabilized medically. Reports a history of bipolar disorder given to her at [facility] as well as ADHD. Review of discharge summary from [facility] does not mention bipolar disorder nor ADHD. [...] goals that would be best addressed at [facility], particularly in the context of her Borderline [...] discharge, a date she chose herself. Diagnosis: Transfer I: Mood disorder NOS, r/o Bipolar disorder Transfer II: Borderline traits Transfer III: Diabetes mellitus, type 2; Chronic hip [...] sliding scale with meals - [facility] to determine - Family med following; recs appreciated Hyponatremia: - Fluid restricted Other: - Nicotine replacement - Albuterol inhaler - Flonase Milieu: - CRU[facility] 3, routine observation - Encourage group attendance - 2 hour pass off unit with Wilman mahoney 05/11 - 3 hour pass off unit tomorrow with Marcin Discharge Plan: [facility] highly appropriate for this pt. Intake had been scheduled prior to pt's hospitalization at [facility], but did not make it to intake. Potential discharge on 05/14. Lynn Rutherford MD 05/12/2013 17:23 Psychiatry Attending Attestation: I have personally seen and examined the patient today. Treatment plan and strategies reviewed with the team. I agree with and have edited in italics the findings and plan of care as documented in theresident's note. ROSARIO JUSTIN MD Pager [phone] Attending, Inpatient Psychiatry, [facility] * Stephanie Velázquez - 05/12/2013 1634 EST [...] being in the hospital. Asked her about [facility] but she was adamant she did not want [facility] but felt this was being pushed on [...] unwilling to consider CBT based programs (i.e. [facility]). Also hyperfocused on medications which aren't doing [...] having self any SI since admission to [facility]. (Ex?)boyfriend continues to be a significantstressor, as does a place to live on d/c. 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 [id number] [facility] Comment:Test Performed by [employer] [facility] 05/18/2013 8:09 EST 05/18/2013 8:23 EST Rosario Justin MD CHEMISTRY & BLOOD G ORDERABLES Performing Organization Address [facility] Co de Phone Number [facility] [address] [place] [address] * (ABNORMAL) GLUCOSE, GLUCOMETER (05/17/2013 17:01 EST) Glucose, Fingerstick 210(H) 70 - 100 mg/dl [facility] Lab Supervisor [place] [id number] [facility] Comment:Test Performed by [employer] 05/17/2013 17:0 1 EST 05/17/2013 17:02 EST Rosario Justin MD CHEMISTRY & BLOOD G ORDERABLES Performing Organization Address [facility] Phone Number [facility] [address] [place] [address] * (ABNORMAL) GLUCOSE, GLUCOMETER (05/17/2013 11:56 EST) Glucose, Fingerstick 136(H) 70 - 100 mg/dl [facility] Chemical Lab Supervisor ID [id number] [facility] Comment:Test Performed by [employer] 05/17/2013 11:5 6 EST 05/17/2013 11:59 EST Rosario Justin MD CHEMISTRY & BLOOD G ORDERABLES Performing Organization Address [facility] Phone Number [facility] [address] [place] [address] * (ABNORMAL) GLUCOSE, GLUCOMETER (05/17/2013 8:02 EST) Glucose, Fingerstick 159(H) 70 - 100 mg/dl [facility] Chemical Lab Supervisor ID [id number] [facility] Comment:Test Performed by [employer] 05/17/2013 8:02 EST 05/17/2013 8:10 EST Rosario Justin MD CHEMISTRY & BLOOD G ORDERABLES Performing Organization Address [facility] Phone Number [facility] [address] [place] [address] * (ABNORMAL) GLUCOSE, GLUCOMETER (05/16/2013 20:53 EST) Glucose, Fingerstick 115(H) 70 - 100 mg/dl [facility] Chemical Lab Supervisor ID [id number] [facility] Comment:Test Performed by [employer] 05/16/2013 20:5 3 EST 05/16/2013 21:02 EST Rosario Justin MD CHEMISTRY & BLOOD G ORDERABLES Performing Organization Address [facility]/State/ZIP Co de Phone Number [facility] [address] [place] [address] * (ABNORMAL) GLUCOSE, GLUCOMETER (05/16/2013 17:49 EST) Glucose, Fingerstick 127(H) 70 - 100 mg/dl [facility] Chemical Lab Supervisor ID [id number] [facility] Comment:Test Performed by [employer] 05/16/2013 17:4 9 EST 05/16/2013 17:50 EST Rosario Justin MD CHEMISTRY & BLOOD G ORDERABLES Performing Organization Address [facility] Co de Phone Number [facility] [address] [place] [address] * (ABNORMAL) GLUCOSE, GLUCOMETER (05/16/2013 11:55 EST) Glucose, Fingerstick 147(H) 70 - 100 mg/dl [facility] Chemical Lab Supervisor ID [id number] [facility] Comment:Test Performed by [employer] 05/16/2013 11:5 5 EST 05/16/2013 12:01 EST Rosario Justin MD CHEMISTRY & BLOOD G ORDERABLES Performing Organization Address [facility] Co de Phone Number [facility] [address] [place] [address] * (ABNORMAL) C-REACTIVE PROTEIN (05/16/2013 7:07 EST) C-Reactive Protein 1.2(H) <1.0 mg/dl [facility] Blood specimen (specimen) 05/16/2013 7:07 EST 05/16/2013 8:16 EST Rosario Justin MD CHEMISTRY & BLOOD G ORDERABLES Performing Organization Address [facility] Co de Phone Number [facility] [address] [place] [address] * VITAMIN D (25,OH) (05/16/2013 7:07 EST) 25OH Vitamin D Tot 14.5 ng/ml [facility] Comment: Reference Range: Deficient = <10 ng/ml Insufficient = 10-30 ng/ml Sufficient = 30-100 ng/ml Toxic = >100 ng/ml Blood specimen (specimen) 05/16/2013 7:07 EST 05/16/2013 8:16 EST Rosario Justin MD CHEMISTRY & BLOOD G ORDERABLES Performing Organization Address [facility] Co de Phone Number [facility] [address] [place] [address] * (ABNORMAL) GLUCOSE, GLUCOMETER (05/16/2013 6:20 EST) Glucose, Fingerstick 113(H) 70 - 100 mg/dl [facility] Chemical Lab Supervisor ID [id number] [facility] Comment:Test Performed by [employer] [facility] [place] 05/16/2013 6:20 EST 05/16/2013 6:22 EST Rosario Justin MD CHEMISTRY & BLOOD G ORDERABLES Performing Organization Address [facility] Co de Phone Number [facility] [address] [place] [address] * (ABNORMAL) GLUCOSE, GLUCOMETER (05/15/2013 20:28 EST) Glucose, Fingerstick 193(H) 70 - 100 mg/dl [facility] Chemical Lab Supervisor ID [id number] [facility] Comment:[facility] [place] 05/15/2013 20:2 8 EST 05/15/2013 20:38 EST Rosario Justin MD CHEMISTRY & BLOOD G ORDERABLES Performing Organization Address [facility] de Phone Number [facility] [address] [place] [address] * (ABNORMAL) GLUCOSE, GLUCOMETER (05/15/2013 17:09 EST) Glucose, Fingerstick 112(H) 70 - 100 mg/dl [facility] Chemical Lab Supervisor ID [id number] [facility] Comment:Test Performed by [employer] 05/15/2013 17:0 9 EST 05/15/2013 17:11 EST Rosario Justin MD CHEMISTRY & BLOOD G ORDERABLES Performing Organization Address [facility] Phone Number [facility] [address] [place] [address] * (ABNORMAL) GLUCOSE, GLUCOMETER (05/15/2013 12:10 EST) Glucose, Fingerstick 167(H) 70 - 100 mg/dl [facility] Chemical Lab Supervisor ID [id number] [facility] Comment:Test Performed by [employer] 05/15/2013 12:1 0 EST 05/15/2013 12:11 EST Rosario Justin MD CHEMISTRY & BLOOD G ORDERABLES Performing Organization Address [facility] Phone Number [facility] [address] [place] [address] * (ABNORMAL) GLUCOSE, GLUCOMETER (05/15/2013 8:17 EST) Glucose, Fingerstick 127(H) 70 - 100 mg/dl [facility] Chemical Lab Supervisor ID [id number] [facility] Comment:Test Performed by [employer] 05/15/2013 8:17 EST 05/15/2013 8:26 EST Rosario Justin MD CHEMISTRY & BLOOD G ORDERABLES Performing Organization Address [facility] de Phone Number [facility] [address] [place] [address] * (ABNORMAL) GLUCOSE, GLUCOMETER (05/14/2013 22:12 EST) Glucose, Fingerstick 130(H) 70 - 100 mg/dl [facility] Chemical Lab Supervisor ID [id number] [facility] Comment:Test Performed by [employer] 05/14/2013 22:1 2 EST 05/14/2013 22:13 EST Rosario Justin MD CHEMISTRY & BLOOD G ORDERABLES Performing Organization Address [facility] Co de Phone Number [facility] [address] [place] [address] * (ABNORMAL) GLUCOSE, GLUCOMETER (05/14/2013 17:35 EST) Glucose, Fingerstick 111(H) 70 - 100 mg/dl [facility] Chemical Lab Supervisor ID [id number] [facility] Comment:Test Performed by [employer] 05/14/2013 17:3 5 EST 05/14/2013 17:36 EST Rosario Justin MD CHEMISTRY & BLOOD G ORDERABLES Performing Organization Address [facility] de Phone Number [facility] [address] [place] [address] * (ABNORMAL) GLUCOSE, GLUCOMETER (05/14/2013 12:03 EST) Glucose, Fingerstick 130(H) 70 - 100 mg/dl [facility] Chemical Lab Supervisor ID [id number] [facility] Comment:Test Performed by [employer] 05/14/2013 12:0 3 EST 05/14/2013 12:09 EST Rosario Justin MD CHEMISTRY & BLOOD G ORDERABLES Performing Organization Address [facility] de Phone Number [facility] [address] [place] [address] * ELECTROLYTES (05/14/2013 7:54 EST) Sodium 136 136 - 145 mEq/L [facility] Potassium 4.4 3.5 - 5.0 mEq/L [facility] Chloride 100 96 - 110 mEq/L [facility] CO2 26 24 - 32 mEq/L [facility] Blood specimen (specimen) 05/14/2013 7:54 EST 05/14/2013 8:24 EST Lynn Rutherford MD CHEMISTRY & BLOOD G ORDERABLES Performing Organization Address [facility] Co de Phone Number [facility] [address] [place] [address] * (ABNORMAL) GLUCOSE, GLUCOMETER (05/14/2013 7:46 EST) Glucose, Fingerstick 124(H) 70 - 100 mg/dl [facility] Chemical Lab Supervisor ID [id number] [facility] Comment:Test Performed by [employer] 05/14/2013 7:46 EST 05/14/2013 7:49 EST Rosario Justin MD CHEMISTRY & BLOOD G ORDERABLES Performing Organization Address [facility] Co de Phone Number [facility] [address] [place] [address] * (ABNORMAL) GLUCOSE, GLUCOMETER (05/13/2013 21:07 EST) Glucose, Fingerstick 203(H) 70 - 100 mg/dl [facility] Chemical Lab Supervisor ID [id number] [facility] Comment:[facility] 05/13/2013 21:0 7 EST 05/13/2013 21:08 EST Rosario Justin MD CHEMISTRY & BLOOD G ORDERABLES Performing Organization Address [facility] Co mo Phone Number [facility] [address] [place] [address] * (ABNORMAL) GLUCOSE, GLUCOMETER (05/13/2013 17:06 EST) Glucose, Fingerstick 129(H) 70 - 100 mg/dl [facility] Chemical Lab Supervisor ID [id number] [facility] Comment:Test [facility] 05/13/2013 17:0 6 EST 05/13/2013 17:08 EST Rosario Justin MD CHEMISTRY & BLOOD G ORDERABLES Performing Organization Address [facility] Co de Phone Number [facility] [address] [place] [address] * (ABNORMAL) GLUCOSE, GLUCOMETER (05/13/2013 7:54 EST) Glucose, Fingerstick 150(H) 70 - 100 mg/dl [facility] Chemical Lab Supervisor ID [id number] [facility] Comment:Test Performed by [employer] [facility] 05/13/2013 7:54 EST 05/13/2013 7:56 EST Rosario Justin MD CHEMISTRY & BLOOD G ORDERABLES Performing Organization Address [facility] Phone Number [facility] [address] [place] [address] * (ABNORMAL) GLUCOSE, GLUCOMETER (05/12/2013 20:50 EST) Glucose, Fingerstick 173(H) 70 - 100 mg/dl [facility] Chemical Lab Supervisor ID [id number] [facility] Comment:Test Performed by [employer] [facility] 05/12/2013 20:5 0 EST 05/12/2013 20:55 EST Rosario Justin MD CHEMISTRY & BLOOD G ORDERABLES Performing Organization Address [facility] Phone Number [facility] [address] [place] [address] * (ABNORMAL) GLUCOSE, GLUCOMETER (05/12/2013 17:15 EST) Glucose, Fingerstick 149(H) 70 - 100 mg/dl [facility] Chemical Lab Supervisor ID [id number] [facility] Comment:Test Performed by [employer] [facility] 05/12/2013 17:1 5 EST 05/12/2013 17:18 EST Rosario Justin MD CHEMISTRY & BLOOD G ORDERABLES Performing Organization Address [facility] Phone Number [facility] [address] [place] [address] * (ABNORMAL) GLUCOSE, GLUCOMETER (05/12/2013 7:54 EST) Glucose, Fingerstick 137(H) 70 - 100 mg/dl [facility] Chemical Lab Supervisor ID [id number] [facility] Comment:Test Performed by [employer] [facility] 05/12/2013 7:54 EST 05/12/2013 7:56 EST Rosario Justin MD CHEMISTRY & BLOOD G ORDERABLES Performing Organization Address [facility] Phone Number [facility] [address] [place] [address] * (ABNORMAL) GLUCOSE, GLUCOMETER (05/11/2013 22:53 EST) Glucose, Fingerstick 174(H) 70 - 100 mg/dl [facility] Chemical Lab Supervisor ID [id number] [facility] Comment:Test Performed by [employer] [facility] 05/11/2013 22:5 3 EST 05/11/2013 22:59 EST Rosario Justin MD CHEMISTRY & BLOOD G ORDERABLES Performing Organization Address [facility] Phone Number [facility] [address] [place] [address] * (ABNORMAL) ELECTROLYTES (05/11/2013 17:36 EST) Sodium 132(L) 136 - 145 mEq/L [facility] Potassium 3.7 3.5 - 5.0 mEq/L [facility] Chloride 93(L) 96 - 110 mEq/L [facility] CO2 24 24 - 32 mEq/L [facility] Blood specimen (specimen) 05/11/2013 17:36 EST 05/11/2013 18:32 EST Rosario Justin MD CHEMISTRY & BLOOD G ORDERABLES Performing Organization Address [facility] Phone Number [facility] [address] [place] [address] * (ABNORMAL) GLUCOSE, GLUCOMETER (05/11/2013 11:55 EST) Glucose, Fingerstick 134(H) 70 - 100 mg/dl [facility] Chemical Lab Supervisor ID [id number] [facility] Comment:Test Performed by [employer] [facility] [facility] 05/11/2013 11:5 5 EST 05/11/2013 11:56 EST Rosario Justin MD CHEMISTRY & BLOOD G ORDERABLES Performing Organization Address [facility] Co de Phone Number [facility] [address] [place] [address] * (ABNORMAL) GLUCOSE, GLUCOMETER (05/11/2013 7:47 EST) Glucose, Fingerstick 136(H) 70 - 100 mg/dl [facility] Chemical Lab Supervisor ID [id number] [facility] Comment:Test Performed by [employer] [facility] [facility] 05/11/2013 7:47 EST 05/11/2013 7:49 EST Rosario Justin MD CHEMISTRY & BLOOD G ORDERABLES Performing Organization Address [facility] Co de Phone Number [facility] [address] [place] [address] * (ABNORMAL) GLUCOSE, GLUCOMETER (05/10/2013 20:58 EST) Glucose, Fingerstick 184(H) 70 - 100 mg/dl [facility] Chemical Lab Supervisor ID [id number] [facility] Comment:Test Performed by [employer] [facility] 05/10/2013 20:5 8 EST 05/10/2013 21:00 EST Rosario Justin MD CHEMISTRY & BLOOD G ORDERABLES Performing Organization Address [facility] Co de Phone Number [facility] [address] [place] [address] * (ABNORMAL) GLUCOSE, GLUCOMETER (05/10/2013 17:12 EST) Glucose, Fingerstick 138(H) 70 - 100 mg/dl [facility] Chemical Lab Supervisor ID [id number] [facility] Comment:Test Performed by [employer] [facility] 05/10/2013 17:1 2 EST 05/10/2013 17:14 EST Rosario Justin MD CHEMISTRY & BLOOD G ORDERABLES Performing Organization Address [facility]/ZIP Co de Phone Number [facility] [address] [place] [address] * (ABNORMAL) GLUCOSE, GLUCOMETER (05/10/2013 12:17 EST) Glucose, Fingerstick 160(H) 70 - 100 mg/dl [facility] Chemical Lab Supervisor ID [id number] [facility] Comment:Test Performed by [facility] [place] 05/10/2013 12:1 7 EST 05/10/2013 12:18 EST Rosario Justin MD CHEMISTRY & BLOOD G ORDERABLES Performing Organization Address [facility] Co de Phone Number [facility] [address] [place] [address] * (ABNORMAL) GLUCOSE, GLUCOMETER (05/10/2013 6:51 EST) Glucose, Fingerstick 135(H) 70 - 100 mg/dl [facility] Chemical Lab Supervisor ID [id number] [facility] Comment:Test Performed by [employer] 05/10/2013 6:51 EST 05/10/2013 6:52 EST Rosario Justin MD CHEMISTRY & BLOOD G ORDERABLES Performing Organization Address [facility] de Phone Number [facility] [address] [place] [address] * (ABNORMAL) GLUCOSE, GLUCOMETER (05/09/2013 19:29 EST) Glucose, Fingerstick 181(H) 70 - 100 mg/dl [facility] Chemical Lab Supervisor ID [id number] [facility] Comment:Test Performed by [employer] 05/09/2013 19:2 9 EST 05/09/2013 19:31 EST Rosario Justin MD CHEMISTRY & BLOOD G ORDERABLES Performing Organization Address [facility] de Phone Number [facility] [address] [place] [address] * (ABNORMAL) GLUCOSE, GLUCOMETER (05/09/2013 16:56 EST) Glucose, Fingerstick 119(H) 70 - 100 mg/dl [facility] Chemical Lab Supervisor ID [id number] [facility] Comment:Test Performed by [employer] 05/09/2013 16:5 6 EST 05/09/2013 16:57 EST Rosario Justin MD CHEMISTRY & BLOOD G ORDERABLES Performing Organization Address [facility] Phone Number [facility] [address] [place] [address] * (ABNORMAL) GLUCOSE, GLUCOMETER (05/09/2013 11:49 EST) Glucose, Fingerstick 204(H) 70 - 100 mg/dl [facility] Chemical Lab Supervisor ID [id number] [facility] Comment:Test Performed by [employer] 05/09/2013 11:4 9 EST 05/09/2013 11:55 EST Rosario Justin MD CHEMISTRY & BLOOD G ORDERABLES Performing Organization Address [facility] Phone Number [facility] [address] [place] [address] * (ABNORMAL) GLUCOSE, GLUCOMETER (05/09/2013 7:47 EST) Glucose, Fingerstick 124(H) 70 - 100 mg/dl [facility] Chemical Lab Supervisor ID [id number] [facility] Comment:Test Performed by [employer] 05/09/2013 7:47 EST 05/09/2013 8:04 EST Rosario Justin MD CHEMISTRY & BLOOD G ORDERABLES Performing Organization Address [facility] Phone Number [facility] [address] [place] [address] * (ABNORMAL) GLUCOSE, GLUCOMETER (05/08/2013 20:55 EST) Glucose, Fingerstick 114(H) 70 - 100 mg/dl [facility] Chemical Lab Supervisor ID [id number] [facility] Comment:Test Performed by [employer] 05/08/2013 20:5 5 EST 05/08/2013 21:02 EST Rosario Justin MD CHEMISTRY & BLOOD G ORDERABLES Performing Organization Address [facility]/ZIP Co de Phone Number [facility] [address] [place] [address] * (ABNORMAL) GLUCOSE, GLUCOMETER (05/08/2013 17:00 EST) Glucose, Fingerstick 121(H) 70 - 100 mg/dl [facility] Chemical Lab Supervisor ID [id number] [facility] Comment:Test Performed by [employer] 05/08/2013 17:0 0 EST 05/08/2013 17:01 EST Rosario Justin MD CHEMISTRY & BLOOD G ORDERABLES Performing Organization Address [facility] Co de Phone Number [facility] [address] [place] [address] * (ABNORMAL) GLUCOSE, GLUCOMETER (05/08/2013 11:26 EST) Glucose, Fingerstick 220(H) 70 - 100 mg/dl [facility] Chemical Lab Supervisor ID [id number] [facility] Comment:Test Performed by [employer] 05/08/2013 11:2 6 EST 05/08/2013 11:32 EST Rosario Justin MD CHEMISTRY & BLOOD G ORDERABLES Performing Organization Address [facility] Co de Phone Number [facility] [address] [place] [address] * (ABNORMAL) GLUCOSE, GLUCOMETER (05/08/2013 8:05 EST) Glucose, Fingerstick 144(H) 70 - 100 mg/dl [facility] Chemical Lab Supervisor ID [id number] [facility] Comment:Test Performed by [employer] 05/08/2013 8:05 EST 05/08/2013 8:13 EST Rosario Justin MD CHEMISTRY & BLOOD G ORDERABLES Performing Organization Address [facility]/ZIP Co de Phone Number [facility] [address] [place] [address] * (ABNORMAL) GLUCOSE, GLUCOMETER (05/07/2013 21:21 EST) Glucose, Fingerstick 126(H) 70 - 100 mg/dl [facility] Chemical Lab Supervisor ID [id number] [facility] Comment:Test Performed by [employer] 05/07/2013 21:2 1 EST 05/07/2013 21:24 EST Rosario Justin MD CHEMISTRY & BLOOD G ORDERABLES Performing Organization Address [facility] Co de Phone Number [facility] [address] [place] [address] * (ABNORMAL) GLUCOSE, GLUCOMETER (05/07/2013 17:06 EST) Glucose, Fingerstick 104(H) 70 - 100 mg/dl [facility] Chemical Lab Supervisor ID [id number] [facility] Comment:Test Performed by [employer] 05/07/2013 17:0 6 EST 05/07/2013 17:07 EST Rosario Justin MD CHEMISTRY & BLOOD G ORDERABLES Performing Organization Address [facility] de Phone Number [facility] [address] [place] [address] * (ABNORMAL) GLUCOSE, GLUCOMETER (05/07/2013 11:36 EST) Glucose, Fingerstick 178(H) 70 - 100 mg/dl [facility] Chemical Lab Supervisor ID [id number] [facility] Comment:Test Performed by [employer] 05/07/2013 11:3 6 EST 05/07/2013 11:38 EST Rosario Justin MD CHEMISTRY & BLOOD G ORDERABLES Performing Organization Address [facility] Co de Phone Number [facility] [address] [place] [address] * (ABNORMAL) GLUCOSE, GLUCOMETER (05/07/2013 8:09 EST) Glucose, Fingerstick 135(H) 70 - 100 mg/dl [facility] Chemical Lab Supervisor ID [id number] [facility] Comment:[facility] 05/07/2013 8:09 EST 05/07/2013 8:20 EST Rosario Justin MD CHEMISTRY & BLOOD G ORDERABLES Performing Organization Address [facility] Co de Phone Number [facility] [address] [place] [address] * UA REFLEX (05/07/2013 8:03 EST) Pathologist [facility] UA Billing Microscopic not indicated. [facility] 05/07/2013 8:03 EST 05/07/2013 8:36 EST Florentin Webb MD URINALYSIS ORDERABLE S Performing Organization Address [facility] Co de Phone Number [facility] [address] [place] [address] * URINALYSIS (05/07/2013 8:03 EST) Pathologist [facility] Color, UA Yellow [facility] Clarity, UA Hazy [facility] Glucose, UA Neg Neg [facility] Bilirubin, UA Neg Neg [facility] Ketones, UA Neg Neg [facility] Specific [place], Urine 1.015 1.001 - 1.035 [facility] [...] MD URINALYSIS ORDERABLE S Performing Organization Address [facility] Co de Phone Number [facility] [address] [place] [address] * (ABNORMAL) ELECTROLYTES (05/07/2013 7:36 EST) Sodium 130(L) 136 - 145 mEq/L [facility] Potassium 4.9 3.5 - 5.0 mEq/L [facility] Chloride 95(L) 96 - 110 mEq/L [facility] CO2 27 24 - 32 mEq/L [facility] Blood specimen (specimen) 05/07/2013 7:36 EST 05/07/2013 8:30 EST Cecily Villeda MD CHEMISTRY & BLOOD GAS ORDERABLES Performing Organization Address [facility] de Phone Number [facility] [address] [place] [address] * LIPID PROFILE (INCLUDES CHOLESTEROL, TRIGLYCERIDES, HDL, LDL) (05/07/2013 7:36 EST) Cholesterol 224 mg/dl [facility] Comment: Desirable:<200 Borderline High:200-239 High:>xj=739 Triglycerides 306 mg/dl [facility] Comment: Normal:<150 Borderline High:150-199 High:200-499 Very High:>ls=320 HDL 54 mg/dl [facility] Comment: Low:<40 Normal:40-60 Desirable: >60 LDL, Calculated 109 mg/dl [facility] Comment: Optimal:<100 Near Optimal:100-129 Borderline High:130-159 High:160-189 Very High:>uq=355 Chol/HDL Ratio 4.1 [facility] Fasting? Unknown [facility] Non HDL Cholesterol 170 mg/dl [facility] Comment: Desirable:<130 Borderline:130-159 High: 160-189 Very High: >og=151 Blood specimen (specimen) 05/07/2013 7:36 EST 05/07/2013 8:30 EST Florentin Webb MD CHEMISTRY & BLOOD GA S ORDERABLES Performing Organization Address [facility] Co de Phone Number [facility] [address] [place] [address] * (ABNORMAL) GLUCOSE, GLUCOMETER (05/06/2013 20:53 EST) Glucose, Fingerstick 157(H) 70 - 100 mg/dl [facility] Chemical Lab Supervisor ID [id number] [facility] Comment:Test Performed by [facility] [employer] 05/06/2013 20:5 3 EST 05/06/2013 21:12 EST Rosario Justin MD CHEMISTRY & BLOOD G ORDERABLES Performing Organization Address [facility] de Phone Number [facility] [address] [place] [address] * (ABNORMAL) GLUCOSE, GLUCOMETER (05/06/2013 16:57 EST) Glucose, Fingerstick 126(H) 70 - 100 mg/dl [facility] Chemical Lab Supervisor ID [id number] [facility] Comment:Test Performed by [employer] 05/06/2013 16:5 7 EST 05/06/2013 17:07 EST Rosario Justin MD CHEMISTRY & BLOOD G ORDERABLES Performing Organization Address [facility] Co de Phone Number [facility] [address] [place] [address] * TSH (05/06/2013 16:38 EST) TSH 0.55 0.35 - 5.00 uIU/ml [facility] Blood specimen (specimen) 05/06/2013 16:38 EST 05/06/2013 17:12 EST Florentin Webb MD CHEMISTRY & BLOOD GA S ORDERABLES Performing Organization Address [facility] Co de Phone Number [facility] [address] [place] [address] * (ABNORMAL) ALT (05/06/2013 16:38 EST) ALT 58(H) 9 - 52 U/L [facility] Blood specimen (specimen) 05/06/2013 16:38 EST 05/06/2013 17:12 EST Florentin Webb MD CHEMISTRY & BLOOD GA S ORDERABLES Performing Organization Address [facility]/ZIP Co de Phone Number [facility] [address] [place] [address] * AST (05/06/2013 16:38 EST) AST 41 15 - 46 U/L [facility] Blood specimen (specimen) 05/06/2013 16:38 EST 05/06/2013 17:12 EST Florentin Webb MD CHEMISTRY & BLOOD GA S ORDERABLES Performing Organization Address [facility] Co de Phone Number [facility] [address] [place] [address] * CREATININE (05/06/2013 16:38 EST) Creatinine 0.54 0.52 - 1.04 mg/dl [facility] GFR, Calculated >60 >60 ml/min/1.7 3m2 [facility] Blood specimen (specimen) 05/06/2013 16:38 EST 05/06/2013 17:12 EST Florentin Webb MD CHEMISTRY & BLOOD GA S ORDERABLES Performing Organization Address [facility] de Phone Number [facility] [address] [place] [address] * BUN (05/06/2013 16:38 EST) BUN 13 10 - 26 mg/dl [facility] Blood specimen (specimen) 05/06/2013 16:38 EST 05/06/2013 17:12 EST Florentin Webb MD CHEMISTRY & BLOOD GA S ORDERABLES Performing Organization Address [facility] Co de Phone Number [facility] [address] [place] [address] * (ABNORMAL) ELECTROLYTES (05/06/2013 16:38 EST) Sodium 131(L) 136 - 145 mEq/L [facility] Potassium 4.4 3.5 - 5.0 mEq/L [facility] Chloride 94(L) 96 - 110 mEq/L [facility] CO2 26 24 - 32 mEq/L [facility] Blood specimen (specimen) 05/06/2013 16:38 EST 05/06/2013 17:12 EST Florentin Webb MD CHEMISTRY & BLOOD GA S ORDERABLES Performing Organization Address [facility] de Phone Number [facility] [address] [place] [address] * (ABNORMAL) SCREENING GLUCOSE (05/06/2013 16:38 EST) Glucose, Screening 118(H) 70 - 100 mg/dl [facility] Blood specimen (specimen) 05/06/2013 16:38 EST 05/06/2013 17:12 EST Florentin Webb MD CHEMISTRY & BLOOD GA S ORDERABLES Performing Organization Address [facility] Phone Number [facility] [address] [place] [address] * (ABNORMAL) GLUCOSE, GLUCOMETER (05/06/2013 15:19 EST) Glucose, Fingerstick 116(H) 70 - 100 mg/dl [facility] Chemical Lab Supervisor ID [id number] [facility] Comment:Test Performed by [facility] Services 05/06/2013 15:1 9 EST 05/06/2013 15:21 EST Rosario Justin MD CHEMISTRY & BLOOD G ORDERABLES Performing Organization Address [facility] de Phone Number [facility] [address] [place] [address] documented in this encounter Visit Diagnoses Diagnosis [...] 60 mg fluticasone (FLONASE) nasal spray 1 [place] 1 [place], nasal - both, DAILY PRN, Starting on Sat05/06/13 at 1551, Until Sat05/19/13 at 1518, Rhinitis, Routine Given 05/14/2013 23:18 EST 1 [place] Given 05/12/2013 20:28 EST 1 [place] hydrOXYzine (ATARAX) tablet 25 mg 25 mg, [...] 1729 (Given - Provider: Palak Lutz, PRISCILA) traMADol (ULTRAM) tablet 100 mg (CANCELED) 100 mg, oral, USER SPECIFIED (3 times per day), First dose (after last modification) on Sat05/13/13 at 0800, Until Discontinued, Routine 0819 (Given - Provider: Sita Dobbins)1200 (Given - Provider: Sita Dobbins)1732 (Given - Provider: Tangela Reyes) 0831 (Given - Provider: Haim Thompson, PRISCILA)1234 (Given - Provider: Haim Thompson, PRISCLIA)1729 (Given - Provider: Palak Lutz RN) 0800 [...] 05/19/2013 documented in this encounter Care Teams Chemical [employer] Plant Technician Relationship Specialty Start Date End Date Annette Sidhu, AGENCY RECRUITER [address] [place] [phone] PCP - General 03/19/13 07/06/19 documented as of this encounter
--- OUTSIDE RECORDS SUMMARY | 2024-02-17 18:43 | XMS_ITS | Encounter Summary ---
Author Organization [facility] Address [address] [place] [address] Care Team Providers Care Email Marketing Coordinator Name Role Phone Annette Sidhu APRN Primary Care Provider Encounter Details Date Type Department Care Team (Latest Contact Info) Description 04/14/2013 11:17 EST - 04/14/2013 23:59 [facility] Hospital Encounter [address] [address] Annette Sidhu APRN [address] [place] [address] Discharge Disposition: Auto Discharge Social History Tobacco [...] II[ICD-9-CM] 311. 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 1 Bottle 2 [...] Type 2 diabetes mellitus ([facility]) 8.7(07/07/2015 5:05 EST) No [...] GA S ORDERABLES [facility] [address] [place] [address] * (ABNORMAL) COMPREHENSIVE METABOLIC PANEL (CMP) (04/14/2013 [...] GA S ORDERABLES [facility] [address] [place] [address] documented in this encounter Visit Diagnoses Not on filedocumented in this encounter Care Teams Email Marketing Coordinator Relationship Specialty Start Date End Date Annette Sidhu APRN [address] [place] [phone] PCP - General 03/19/13 07/06/19 documented as of this encounter
--- OUTSIDE RECORDS SUMMARY | 2024-02-17 18:43 | XMS_ITS | Encounter Summary ---
Author Organization [facility] Address [address] [place] [address] Care Team Providers Care E Commerce Merchandising Coordinator Name Role Phone SidhuAnnette lew Eliza GARCIA Primary Care Provider Reason for Visit * Reason Comments Suicidal Suicidal attempt yes terday. Took 2 metformin and 5 full Aspart insulin pens in an attempt to kill herself.FSBS [id number] Encounter Details Date Type Department Care Team (Late st Contact Info) Description 05/01/2013 17:45 EST - 05/06/2013 11:47 [facility] Hospital Encounter [facility] Cardiac/Telemetry Unit [address], [place] [address] Haim Mendoza MD [address] [phone] Gail Davis MD [address] [phone] Alaina Chung MD [address] [place] [address] [id number] Dilan Hernandes MD 111 [facility], [facility] [address] [place] [address] Urmila Mendez MD [address] [place] [address], [place] [address] Insulin overdose (Lantus x1500 units) [...] her on psychiatry. She was transferred to [facility], voluntaryinpatient pyschiatry unit on 05/06 after [...] spray Commonly known as: FLONASE Instill 1 [place] into both nostrils daily. FOCALIN XR 15 [...] mcg/actuation nasal sprayIndications:Aller gic rhinitis Instill 1 [place] into both nostrils daily. 1 Bottle 2 [...] 3 08/12/2012 12/31/2013 traZODone (DESYREL) 100 mg tabletIndications:Catechist rossy pain syndrome Take 1.5 Tabs by [...] completion tomorrow and v oluntary admission to [facility]. DSM IV Diagnosis Stockbridge I: Bipolar Stockbridge II: Deferred Stockbridge III: See Medical/Surgical History Recommendation: 1. Medically cleared to go to [facility] and has signed the consent forms 2. Please call with any question. PSC is available 8am - 5pm at pager [phone], and on-call resident isavailable weekdays 5pm - 8am and weekends at pager [phone]. Thank you for the consult. PSC will continue to follow [facility] Pager [phone] 05/06/2013 11:00 * Haroldo Bowles, PT - 05/05/2013 1435 EST Rehabilitation Therapies [facility] Physical Therapy Contact Note Date of Service: [...] ask the team when she gets to [facility]. She slept well with 6 hours [...] completion tomorrow and v oluntary admission to [facility]. DSM IV Diagnosis Stockbridge I: Bipolar and PTSD Stockbridge II: Deferred Stockbridge III: See Medical/Surgical History Recommendation: 1. Patient [...] is available 8am - 5pm at pager [phone], and on-call resident isavailable weekdays 5pm - 8am and weekends at pager [phone]. Thank you for the consult. PSC will continue to follow Wilbert Biggs [facility] Pager [phone] 05/05/2013 13:20 * Urmila Mendez MD - 05/05/2013 7372 EST Family Medicine Service Progress Note Chief Complaint: Suicide attempt 24-Hour Events: Psychiatry consulted, they recommend inpatient admission to [facility] when med stabilized Subjective/Brief ROS: She [...] glucose levels -1:1 sitter -psychiatric admission to [facility], holding bed. -Appreciate psychiatry recommendations Psychiatric issues: Bipolar, PTSD, anxiety (05/01/2013) -appreciate psychiatric consultation -continue home meds: quietapoine 150 qhs, cymbalta 60 BID, oxycarbazepine 300 mg BID -home focalin 15 qam and noon. -plan for [facility] transfer when medically stable, pending bed still held. T2DM: -holding insulin and metformin as she has had an insulin overdose -last HbA1c was 7.5. PCP Ingrid ButlerBanner is ok with stopping insulin if we [...] Psychiatry consulted, they recommend inpatient admission to [facility] when stable. Subjective/Brief ROS: Reports that she [...] glucose levels -1:1 sitter -psychiatric admission to [facility] held until Saturday PM, pending clinical [...] mgmt, but was discontinued by her PCP Anntete Maldonado at [facility] late last year. Will continue with supportive [...] completion tomorrow and v oluntary admission to [facility]. Current Living Arrangements: Patient lives in [place]. She is independent at baseline and employed. She has spoken with her work and they are aware of her illness. She is willing to be voluntarily admitted to psychiatry. Current Social, Health Care and Community Supports: Patient is covered by Annette Sidhu at the [facility] She has supportive family in the area Patient has managed Medicaid for her medical and pharmacy needs Identified Case Management/Social Work Needs and Issues No further case management needs at this time Case Management Actions (completed and planned): Awaiting medical clearance for voluntary admission to inpatient psychiatry Anisa Alonzo RN [facility] Wireline Field Operator [phone] * Urmila Mendez MD - 05/03/2013 1211 [...] glucose levels -1:1 sitter -psychiatric admission to [facility] in the works for Saturday, pending [...] 13:17 * Dilan Hernandes MD - 05/02/2013 0575 EST MICU Attending Progress Note 24-Hour Events & Subjective No major events No complaints Continues to require D10 infusion Physical Examination Vital Signs Temp: 35.6 ??C (96.1 ??F) Temp: [35.4 ??C (95.7 ??F)-35.8 ??C (96.4 ??F)] Pulse: 90 Pulse: -- BP: 134/75 mmHg BP: (89-148)/(39-90) Resp: 26 Resp: [14-26] SpO2: 99 % SpO2: [96 %-100 %] Intake/Output Summary (Last 24 hours) at 05/02/13 9972 Last data filed at 05/02/13 1601 Gross [...] for this basename: PHISTAT, PCOISTAT, POISTAT, POCTCO2, H8OHWBWV, BEART, BDART, POCFIO2, in the last 72 [...] glucose levels -1:1 sitter -psychiatric admission to [facility] in the works for Saturday, pending clinical course for SI and patient's wishes. Psychiatric issues: Bipolar, PTSD, anxiety (05/01/2013) -appreciate psychiatric consultation -continue home meds: quietapoine 150 qhs, cymbalta 30 mg qd, oxycarbazepine 300 mg BID -plan for [facility] transfer on Delf[place] pending clinical course T2DM: [...] juice, felt better. Went to work at [employer], went home and again started to feel [...] Has seen psychiatrist once, Dr. Mahoney, at [facility]. No new life stressors. Says she [...] (FLONASE) 50 mcg/actuation nasal spray Instill 1 [place] into both nostrils daily. 1 Bottle 2 [...] 0348 * Alaina Chung MD - 05/01/2013 6597 EST MICU Attending H& P Note Date [...] (FLONASE) 50 mcg/actuation nasal spray Instill 1 [place] into both nostrils daily. 1 Bottle 2 [...] Glucose, Fingerstick 70 70 - 100 mg/dl Land Use Pl[facility] [place] [id number] GLUCOSE, GLUCOMETER Collection Time 05/01/13 16:05 Result Value Range Glucose, Fingerstick 76 70 - 100 mg/dl Land Use Planner ID [id number] GLUCOSE, GLUCOMETER Collection Time 05/01/13 17:13 Result Value Range Glucose, Fingerstick 40 (*) 70 - 100 mg/dl Land Use Planner ID [id number] GLUCOSE, GLUCOMETER Collection Time 05/01/13 17:58 Result Value Range Glucose, Fingerstick 97 70 - 100 mg/dl Land Use Planner ID [id number] GLUCOSE, GLUCOMETER Collection Time 05/01/13 18:39 Result Value Range Glucose, Fingerstick 110 (*) 70 - 100 mg/dl Land Use Planner ID [id number] Assessment/Plans: 37 y/o woman with a h/o [...] completion tomorrow and v oluntary admission to [facility]. DSM IV Diagnosis Stockbridge I: Bipolar and PTSD Stockbridge II: Deferred Stockbridge III: See Medical/Surgical History Recommendation: 1. Increase [...] is available from 8am- 5pm at pager [phone], and the on-call resident is available weekdays 5pm - 8am and weekends at pager [phone]. Thank you for the consult. PCS will [...] method, for which she was hospitalized at [facility]. 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 She believes that she may have [...] out in desperation to a psychiatrist at [facility] (Dr. Angel),and had seen him once recently. 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 Her highest level of education [...] more aggressive medication management. DSM IV Diagnosis Stockbridge I: Bipolar I disorder, Anxiety disorder NOS, r/o PTSD, r/o opiate dependence vs chronic pain Stockbridge II: R/o personality disorder Stockbridge III: See Medical/Surgical History above Stockbridge IV: Consequences due to mental illness, lack of protective attachment to children, family or boyfriend, isolated Stockbridge V: 30 Suicide Risk Assessment Modifiable Risk Factors Non-Modifiable Risk Factors Protective Factors x Current suicidal ideation x Recent suicide attempt x Children in home Current plan for suicide x Prior suicide attempt Church prohibition x Intent for self harm or [...] to be transported by this author, on Xiaoying 20 monitor * Trevin Martinez RN - [...] she awoke this morning, worked on the [employer] L[employer]D unit for several hours but did [...] 19:07 * Hilda Madrigal RN - 05/01/2013 0822 EST 1/2 amp of D50 given per [...] lantus pens (300u each). She states this [id number]. She indicates that she has requested to [...] EST Problem: PSYCHOSOCIAL Goal: Demonstrates Ability To [place] With Hospitalization Outcome: Ongoing Data: Pt cont [...] patient take shower. Currently having conversation with Big Frame Tech in the room, with good mood, [...] EST Problem: PSYCHOSOCIAL Goal: Demonstrates Ability To [place] With Hospitalization Data: pt with attempted suicide [...] diabetes mellitus ([facility]) 8.7(07/07/2015 5:05 EST) No Annmarie Vigil documented [...] 9:19 EST) 05/25/2013 9:19 EST Scan 2 Collar Trimmer PROCEDURE/MINOR OSMAR GICAL ORDERABLES * ECG REPORT - SCANNED (05/07/2013 12:24 EST) 05/07/2013 12:2 4 EST Scan 2 Collar Trimmer PROCEDURE/MINOR OSMAR GICAL ORDERABLES * (ABNORMAL) GLUCOSE, GLUCOMETER (05/06/2013 11:28 EST) Glucose, Fingerstick 104(H) 70 - 100 mg/dl [facility] Land Use Planner ID [id number] [facility] Comment:Test Performed by [facility] 05/06/2013 11:2 8 EST 05/06/2013 11:33 EST Dlian Hernandes MD CHEMISTRY & BLOOD GA S ORDERABLES [facility] [address] [place] [address] * (ABNORMAL) GLUCOSE, GLUCOMETER (05/06/2013 9:37 EST) Glucose, Fingerstick 179(H) 70 - 100 mg/dl [facility] Land Use Planner [place] [id number] [facility] Comment:Test Performed by [facility] 05/06/2013 9:37 EST 05/06/2013 9:39 EST Dilan Hernandes MD CHEMISTRY & BLOOD GA S ORDERABLES Performing Organization Address [facility] Co de Phone Number [facility] [address] [place] [address] * (ABNORMAL) GLUCOSE, GLUCOMETER (05/06/2013 7:27 EST) Glucose, Fingerstick 138(H) 70 - 100 mg/dl [facility] Land Use Planner ID [id number] [facility] Comment:Test Performed by [facility] 05/06/2013 7:27 EST 05/06/2013 9:35 EST Dilan Hernandes MD CHEMISTRY & BLOOD GA S ORDERABLES Performing Organization Address [facility] Co de Phone Number [facility] [address] [place] [address] * (ABNORMAL) HEMAGRAM (05/06/2013 6:26 EST) WBC [...] PF4 ORD ERABLES Performing Organization Address [facility] Co de Phone Number [facility] [address] [place] [address] * CREATININE (05/06/2013 6:26 EST) Creatinine 0.55 0.52 - 1.04 mg/dl [facility] GFR, Calculated >60 >60 ml/min/1.7 3m2 [facility] Blood specimen (specimen) 05/06/2013 6:26 EST 05/06/2013 6:53 EST Annette Guajardo MD CHEMISTRY & BLOOD GAS ORDERABLES Performing Organization Address [facility] Phone Number [facility] [address] [place] [address] * (ABNORMAL) ELECTROLYTES (05/06/2013 6:26 EST) Sodium [...] GA S ORDERABLES Performing Organization Address [facility] de Phone Number [facility] [address] [place] [address] * (ABNORMAL) GLUCOSE, GLUCOMETER (05/06/2013 2:38 EST) Glucose, Fingerstick 156(H) 70 - 100 mg/dl [facility] Land Use Planner [place] [id number] [facility] Comment:Test Performed by [facility] 05/06/2013 2:38 EST 05/06/2013 2:56 EST Dilan Hernandes MD CHEMISTRY & BLOOD GA S ORDERABLES Performing Organization Address [facility] Co de Phone Number [facility] [address] [place] [address] * (ABNORMAL) GLUCOSE, GLUCOMETER (05/05/2013 21:26 EST) Glucose, Fingerstick 133(H) 70 - 100 mg/dl [facility] Land Use Planner ID [id number] [facility] Comment:Test Performed by [facility] 05/05/2013 21:2 6 EST 05/05/2013 21:27 EST Dilan Hernandes MD CHEMISTRY & BLOOD GA S ORDERABLES Performing Organization Address [facility] Co de Phone Number [facility] [address] [place] [address] * (ABNORMAL) GLUCOSE, GLUCOMETER (05/05/2013 17:18 EST) Glucose, Fingerstick 128(H) 70 - 100 mg/dl [facility] Land Use Planner ID [id number] [facility] Comment:Test Performed by [facility] 05/05/2013 17:1 8 EST 05/05/2013 17:19 EST Dilan Hernandes MD CHEMISTRY & BLOOD GA S ORDERABLES Performing Organization Address [facility] Co de Phone Number [facility] [address] [place] [address] * (ABNORMAL) GLUCOSE, GLUCOMETER (05/05/2013 13:47 EST) Glucose, Fingerstick 244(H) 70 - 100 mg/dl [facility] Land Use Planner ID [id number] [facility] Comment:tnurs 05/05/2013 13:4 7 EST 05/05/2013 13:48 EST Dilan Hernandes MD CHEMISTRY & BLOOD GA S ORDERABLES Performing Organization Address [facility] Co de Phone Number [facility] [address] [place] [address] * GLUCOSE, GLUCOMETER (05/05/2013 7:35 EST) Glucose, Fingerstick 99 70 - 100 mg/dl [facility] Land Use Planner ID [id number] [facility] Comment:Test Performed by [facility] 05/05/2013 7:35 EST 05/05/2013 7:38 EST Dilan Hernandes MD CHEMISTRY & BLOOD GA S ORDERABLES Performing Organization Address [facility] Co de Phone Number [facility] [address] [place] [address] * (ABNORMAL) CREATININE (05/05/2013 5:43 EST) Creatinine 0.51(L) 0.52 - 1.04 mg/dl [facility] GFR, Calculated >60 >60 ml/min/1.7 3m2 [facility] Blood specimen (specimen) 05/05/2013 5:43 EST 05/05/2013 6:26 EST Annette Guajardo MD CHEMISTRY & BLOOD GAS ORDERABLES Performing Organization Address [facility] de Phone Number [facility] [address] [place] [address] * (ABNORMAL) ELECTROLYTES (05/05/2013 5:43 EST) Sodium [...] GA S ORDERABLES Performing Organization Address [facility]/ZIP Co de Phone Number [facility] [address] [place] [address] * (ABNORMAL) GLUCOSE, GLUCOMETER (05/05/2013 5:19 EST) Glucose, Fingerstick 116(H) 70 - 100 mg/dl [facility] Land Use Planner ID [id number] [facility] Comment:Test Performed by [facility] 05/05/2013 5:19 EST 05/05/2013 5:26 EST Dilan Hernandes MD CHEMISTRY & BLOOD GA S ORDERABLES Performing Organization Address City/[facility]/ZIP Co de Phone Number [facility] [address] [place] [address] * (ABNORMAL) GLUCOSE, GLUCOMETER (05/05/2013 1:19 EST) Glucose, Fingerstick 149(H) 70 - 100 mg/dl [facility] Land Use Planner ID [id number] [facility] Comment:Test Performed by [facility] 05/05/2013 1:19 EST 05/05/2013 1:21 EST Dilan Hernandes MD CHEMISTRY & BLOOD GA S ORDERABLES Performing Organization Address City/[facility]/ZIP Co de Phone Number [facility] [address] [place] [address] * (ABNORMAL) GLUCOSE, GLUCOMETER (05/04/2013 21:03 EST) Glucose, Fingerstick 117(H) 70 - 100 mg/dl [facility] Land Use Planner ID [id number] [facility] Comment:Test Performed by [facility] 05/04/2013 21:0 3 EST 05/04/2013 21:10 EST Dilan Hernandes MD CHEMISTRY & BLOOD GA S ORDERABLES Performing Organization Address City/[facility]/ZIP Co de Phone Number [facility] [address] [place] [address] * (ABNORMAL) GLUCOSE, GLUCOMETER (05/04/2013 17:36 EST) Glucose, Fingerstick 110(H) 70 - 100 mg/dl [facility] Land Use Planner ID [id number] [facility] Comment:Test Performed by [facility] 05/04/2013 17:3 6 EST 05/04/2013 17:39 EST Dilan Hernandes MD CHEMISTRY & BLOOD GA S ORDERABLES Performing Organization Address [facility] de Phone Number [facility] [address] [place] [address] * (ABNORMAL) GLUCOSE, GLUCOMETER (05/04/2013 14:51 EST) Glucose, Fingerstick 176(H) 70 - 100 mg/dl [facility] Land Use Planner ID [id number] [facility] Comment:Test Performed by [facility] 05/04/2013 14:5 1 EST 05/04/2013 15:11 EST Dilan Hernandes MD CHEMISTRY & BLOOD GA S ORDERABLES Performing Organization Address [facility] de Phone Number [facility] [address] [place] [address] * (ABNORMAL) GLUCOSE, GLUCOMETER (05/04/2013 10:06 EST) Glucose, Fingerstick 166(H) 70 - 100 mg/dl [facility] Land Use Planner ID [id number] [facility] Comment:Test Performed by [facility] 05/04/2013 10:0 6 EST 05/04/2013 10:08 EST Dilan Hernandes MD CHEMISTRY & BLOOD GA S ORDERABLES Performing Organization Address [facility] de Phone Number [facility] [address] [place] [address] * (ABNORMAL) ELECTROLYTES (05/04/2013 6:52 EST) Sodium 134(L) 136 - 145 mEq/L [facility] Potassium 3.8 3.5 - 5.0 mEq/L [facility] Chloride 100 96 - 110 mEq/L [facility] CO2 24 24 - 32 mEq/L [facility] Blood specimen (specimen) 05/04/2013 6:52 EST 05/04/2013 7:07 EST Kayley Correa CHEMISTRY & BLOOD GA S ORDERABLES Performing Organization Address [facility] de Phone Number [facility] [address] [place] [address] * (ABNORMAL) GLUCOSE, GLUCOMETER (05/04/2013 6:31 EST) Glucose, Fingerstick 138(H) 70 - 100 mg/dl [facility] Land Use Planner ID [id number] [facility] Comment:Test Performed by [facility] 05/04/2013 6:31 EST 05/04/2013 7:21 EST Dilan Hernandes MD CHEMISTRY & BLOOD GA S ORDERABLES Performing Organization Address [facility] Phone Number [facility] [address] [place] [address] * (ABNORMAL) GLUCOSE, GLUCOMETER (05/04/2013 3:01 EST) Glucose, Fingerstick 171(H) 70 - 100 mg/dl [facility] Land Use Planner ID [id number] [facility] Comment:Test Performed by [facility] 05/04/2013 3:01 EST 05/04/2013 4:44 EST Dilna Hernandes MD CHEMISTRY & BLOOD GA S ORDERABLES Performing Organization Address [facility] Phone Number [facility] [address] [place] [address] * (ABNORMAL) GLUCOSE, GLUCOMETER (05/03/2013 22:31 EST) Glucose, Fingerstick 150(H) 70 - 100 mg/dl [facility] Land Use Planner ID [id number] [facility] Comment:Test Performed by [facility] 05/03/2013 22:3 1 EST 05/03/2013 22:32 EST Dilan Hernandes MD CHEMISTRY & BLOOD GA S ORDERABLES Performing Organization Address [facility] de Phone Number [facility] [address] [place] [address] * (ABNORMAL) GLUCOSE, GLUCOMETER (05/03/2013 18:30 EST) Glucose, Fingerstick 130(H) 70 - 100 mg/dl [facility] Land Use Planner ID [id number] [facility] Comment:Test Performed by [facility] 05/03/2013 18:3 0 EST 05/03/2013 18:32 EST Dilan Hernandes MD CHEMISTRY & BLOOD GA S ORDERABLES Performing Organization Address [facility] Phone Number [facility] [address] [place] [address] * (ABNORMAL) GLUCOSE, GLUCOMETER (05/03/2013 12:04 EST) Glucose, Fingerstick 170(H) 70 - 100 mg/dl [facility] Land Use Planner ID [id number] [facility] Comment:Test Performed by [facility] 05/03/2013 12:0 4 EST 05/03/2013 12:05 EST Dilan Hernandes MD CHEMISTRY & BLOOD GA S ORDERABLES Performing Organization Address [facility] Phone Number [facility] [address] [place] [address] * (ABNORMAL) GLUCOSE, GLUCOMETER (05/03/2013 8:32 EST) Glucose, Fingerstick 123(H) 70 - 100 mg/dl [facility] Land Use Planner ID [id number] [facility] Comment:Test Performed by [facility] 05/03/2013 8:32 EST 05/03/2013 8:46 EST Dilan Hernandes MD CHEMISTRY & BLOOD GA S ORDERABLES Performing Organization Address [facility]/ZIP Co de Phone Number [facility] [address] [place] [address] * (ABNORMAL) ELECTROLYTES (05/03/2013 7:15 EST) Sodium [...] GA S ORDERABLES Performing Organization Address [facility] Co de Phone Number [facility] [address] [place] [address] * (ABNORMAL) GLUCOSE, GLUCOMETER (05/03/2013 3:59 EST) Glucose, Fingerstick 146(H) 70 - 100 mg/dl [facility] Land Use Planner ID [id number] [facility] Comment:Test Performed by [facility] 05/03/2013 3:59 EST 05/03/2013 4:01 EST Dilan Hernandes MD CHEMISTRY & BLOOD GA S ORDERABLES Performing Organization Address [facility] Co de Phone Number [facility] [address] [place] [address] * (ABNORMAL) GLUCOSE, GLUCOMETER (05/02/2013 23:58 EST) Glucose, Fingerstick 127(H) 70 - 100 mg/dl [facility] Land Use Planner ID [id number] [facility] Comment:Test Performed by [facility] 05/02/2013 23:5 8 EST 05/03/2013 Dilan Hernandes MD CHEMISTRY & BLOOD GA S ORDERABLES [facility] [address] [place] [address] * (ABNORMAL) GLUCOSE, GLUCOMETER (05/02/2013 19:57 EST) Glucose, Fingerstick 161(H) 70 - 100 mg/dl [facility] Land Use Planner ID [id number] [facility] Comment:Test Performed by [facility] 05/02/2013 19:5 7 EST 05/02/2013 19:59 EST Dilan Hernandes MD CHEMISTRY & BLOOD GA S ORDERABLES Performing Organization Address [facility] Co de Phone Number [facility] [address] [place] [address] * (ABNORMAL) GLUCOSE, GLUCOMETER (05/02/2013 16:01 EST) Glucose, Fingerstick 108(H) 70 - 100 mg/dl [facility] Land Use Planner ID [id number] [facility] Comment:Test Performed by [facility] 05/02/2013 16:0 1 EST 05/02/2013 16:03 EST Dilan Hernandes MD CHEMISTRY & BLOOD GA S ORDERABLES Performing Organization Address [facility] Co de Phone Number [facility] [address] [place] [address] * GLUCOSE, GLUCOMETER (05/02/2013 13:41 EST) Glucose, Fingerstick 99 70 - 100 mg/dl [facility] Land Use [place]anner ID [id number] [facility] Comment:Test Performed by [facility] 05/02/2013 13:4 1 EST 05/02/2013 13:42 EST Dilan Hernandes MD CHEMISTRY & BLOOD GA S ORDERABLES Performing Organization Address [facility] Co de Phone Number [facility] [address] [place] [address] * GLUCOSE, GLUCOMETER (05/02/2013 12:32 EST) Glucose, Fingerstick 91 70 - 100 mg/dl [facility] Land Use [place]anner [place] [id number] [facility] Comment:Test Performed by [facility] 05/02/2013 12:3 2 EST 05/02/2013 12:33 EST Alaina Chung MD CHEMISTRY & BLOOD GA S ORDERABLES Performing Organization Address [facility] Co wy Phone Number [facility] [address] [place] [address] * (ABNORMAL) GLUCOSE, GLUCOMETER (05/02/2013 11:04 EST) Glucose, Fingerstick 120(H) 70 - 100 mg/dl [facility] Land Use Planner ID [id number] [facility] Comment:Test Performed by [facility] 05/02/2013 11:0 4 EST 05/02/2013 11:05 EST Alaina Chung MD CHEMISTRY & BLOOD GA S ORDERABLES Performing Organization Address [facility] Phone Number [facility] [address] [place] [address] * (ABNORMAL) GLUCOSE, GLUCOMETER (05/02/2013 10:09 EST) Glucose, Fingerstick 209(H) 70 - 100 mg/dl [facility] Land Use Planner [place] [id number] [facility] Comment:Test Performed by [facility] 05/02/2013 10:0 9 EST 05/02/2013 10:10 EST Alaina Chung MD CHEMISTRY & BLOOD GA S ORDERABLES Performing Organization Address [facility] Co wy Phone Number [facility] [address] [place] [address] * (ABNORMAL) GLUCOSE, GLUCOMETER (05/02/2013 8:59 EST) Glucose, Fingerstick 155(H) 70 - 100 mg/dl [facility] Land Use Planner ID [id number] [facility] Comment:Test Performed by [facility] 05/02/2013 8:59 EST 05/02/2013 9:00 EST Alaina Chung MD CHEMISTRY & BLOOD GA S ORDERABLES Performing Organization Address [facility] Co de Phone Number [facility] [address] [place] [address] * (ABNORMAL) GLUCOSE, GLUCOMETER (05/02/2013 8:01 EST) Glucose, Fingerstick 136(H) 70 - 100 mg/dl [facility] Land Use Planner ID [id number] [facility] Comment:Test Performed by [facility] 05/02/2013 8:01 EST 05/02/2013 8:09 EST Alaina Chung MD CHEMISTRY & BLOOD GA S ORDERABLES Performing Organization Address [facility] Phone Number [facility] [address] [place] [address] * GLUCOSE, GLUCOMETER (05/02/2013 7:05 EST) Glucose, Fingerstick 88 70 - 100 mg/dl [facility] Land Use Planner ID [id number] [facility] Comment:Test Performed by [facility] 05/02/2013 7:05 EST 05/02/2013 7:07 EST Alaina Chung MD CHEMISTRY & BLOOD GA S ORDERABLES Performing Organization Address [facility] de Phone Number [facility] [address] [place] [address] * GLUCOSE, GLUCOMETER (05/02/2013 6:09 EST) Glucose, Fingerstick 83 70 - 100 mg/dl [facility] Land Use Planner ID [id number] [facility] Comment:Test Performed by [facility] 05/02/2013 6:09 EST 05/02/2013 6:10 EST Alaina Chung MD CHEMISTRY & BLOOD GA S ORDERABLES Performing Organization Address City/[facility]/ZIP Co de Phone Number [facility] [address] [place] [address] * (ABNORMAL) GLUCOSE, GLUCOMETER (05/02/2013 5:10 EST) Glucose, Fingerstick 140(H) 70 - 100 mg/dl [facility] Land Use Planner ID [id number] [facility] Comment:Test Performed by rsing Services 05/02/2013 5:10 EST 05/02/2013 5:11 EST Alaina Chung MD CHEMISTRY & BLOOD GA S ORDERABLES Performing Organization Address [facility] Co de Phone Number [facility] [address] [place] [address] * TEST, URINE (05/02/2013 4:17 EST) Result- [...] URINALYSIS ORDERABLE S Performing Organization Address [facility] Co de Phone Number [facility] [address] [place] [address] * (ABNORMAL) GLUCOSE, GLUCOMETER (05/02/2013 4:13 EST) Glucose, Fingerstick 137(H) 70 - 100 mg/dl [facility] Land Use Planner ID [id number] [facility] Comment:[facility] 05/02/2013 4:13 EST 05/02/2013 4:14 EST Alaina Chung MD CHEMISTRY & BLOOD GA S ORDERABLES Performing Organization Address [facility] Co de Phone Number [facility] [address] [place] [address] * (ABNORMAL) GLUCOSE, GLUCOMETER (05/02/2013 3:26 EST) Glucose, Fingerstick 130(H) 70 - 100 mg/dl [facility] Land Use Planner ID [id number] [facility] Comment:[facility] 05/02/2013 3:26 EST 05/02/2013 3:37 EST Alaina Chung MD CHEMISTRY & BLOOD GA S ORDERABLES Performing Organization Address [facility] de Phone Number [facility] [address] [place] [address] * (ABNORMAL) DIFFERENTIAL (05/02/2013 3:22 EST) Neutrophils [...] Performing Organization Address [facility] de Phone Number [facility] [address] [place] [address] * (ABNORMAL) HEMAGRAM (05/02/2013 3:22 EST) WBC [...] PF4 ORD ERABLES Performing Organization Address [facility] Co de Phone Number [facility] [address] [place] [address] * (ABNORMAL) ELECTROLYTES (05/02/2013 3:22 EST) Sodium [...] Address [facility] Phone Number [facility] [address] [place] [address] * (ABNORMAL) CREATININE (05/02/2013 3:22 EST) Creatinine 0.47(L) 0.52 - 1.04 mg/dl [facility] GFR, Calculated >60 >60 ml/min/1.7 3m2 [facility] Blood specimen (specimen) 05/02/2013 3:22 EST 05/02/2013 3:50 EST Marcin Marshall MD CHEMISTRY & BLOOD GA S ORDERABLES Performing Organization Address [facility] de Phone Number [facility] [address] [place] [address] * (ABNORMAL) BUN (05/02/2013 3:22 EST) BUN 6(L) 10 - 26 mg/dl [facility] Blood specimen (specimen) 05/02/2013 3:22 EST 05/02/2013 3:50 EST Marcin Marshall MD CHEMISTRY & BLOOD GA S ORDERABLES Performing Organization Address [facility] de Phone Number [facility] [address] [place] [address] * (ABNORMAL) GLUCOSE, GLUCOMETER (05/02/2013 2:06 EST) Glucose, Fingerstick 149(H) 70 - 100 mg/dl [facility] Land Use Planner ID [id number] [facility] Comment:Test Performed by [facility] 05/02/2013 2:06 EST 05/02/2013 2:08 EST Alaian Chung MD CHEMISTRY & BLOOD GA S ORDERABLES Performing Organization Address [facility] Phone Number [facility] [address] [place] [address] * (ABNORMAL) GLUCOSE, GLUCOMETER (05/02/2013 1:13 EST) Glucose, Fingerstick 147(H) 70 - 100 mg/dl [facility] Land Use Planner ID [id number] [facility] Comment:Test Performed by [facility] [employer] [facility] [facility] 05/02/2013 1:13 EST 05/02/2013 1:14 EST Alaina Chung MD CHEMISTRY & BLOOD GA S ORDERABLES Performing Organization Address [facility] Phone Number [facility] [address] [place] [address] * (ABNORMAL) GLUCOSE, GLUCOMETER (05/02/2013 0:06 EST) Glucose, Fingerstick 123(H) 70 - 100 mg/dl [facility] Land Use Planner ID [id number] [facility] Comment:Test Performed by [facility] 05/02/2013 0:06 EST 05/02/2013 0:07 EST Alaina Chung MD CHEMISTRY & BLOOD GA S ORDERABLES Performing Organization Address [facility] Co de Phone Number [facility] [address] [place] [address] * (ABNORMAL) GLUCOSE, GLUCOMETER (05/01/2013 23:04 EST) Glucose, Fingerstick 107(H) 70 - 100 mg/dl [facility] Land Use Planner ID [id number] [facility] Comment:Test Performed by [facility] 05/01/2013 23:0 4 EST 05/01/2013 23:07 EST Alaina Chung MD CHEMISTRY & BLOOD GA S ORDERABLES Performing Organization Address [facility] de Phone Number [facility] [address] [place] [address] * INPATIENT ADD-ON (05/01/2013 22:35 EST) Tests to be added URINE [facility] Number for problems 72,356 [facility] Accession number NO URINE [facility] 05/01/2013 22:3 5 EST 05/01/2013 22:43 EST Marcin Marshall MD HEMATOLOGY & PF4 ORD ERABLES Performing Organization Address [facility] de Phone Number [facility] [address] [place] [address] * (ABNORMAL) GLUCOSE, GLUCOMETER (05/01/2013 22:24 EST) Glucose, Fingerstick 137(H) 70 - 100 mg/dl [facility] Land Use Planner ID [id number] [facility] Comment:Test Performed by [facility] 05/01/2013 22:2 4 EST 05/01/2013 22:25 EST Alaina Chung MD CHEMISTRY & BLOOD GA S ORDERABLES Performing Organization Address [facility] Co de Phone Number [facility] [address] [place] [address] * (ABNORMAL) GLUCOSE, GLUCOMETER (05/01/2013 21:58 EST) Glucose, Fingerstick 201(H) 70 - 100 mg/dl [facility] Land Use Planner ID [id number] [facility] Comment:Test Performed by [facility] 05/01/2013 21:5 8 EST 05/01/2013 22:05 EST Alaina Chung MD CHEMISTRY & BLOOD GA S ORDERABLES Performing Organization Address City/[facility]/ZIP Co de Phone Number [facility] [address] [place] [address] * (ABNORMAL) GLUCOSE, GLUCOMETER (05/01/2013 21:46 EST) Glucose, Fingerstick 41(LL) 70 - 100 mg/dl [facility] Land Use Planner ID [id number] [facility] Comment:Test Performed by [facility] 05/01/2013 21:4 6 EST 05/01/2013 22:05 EST Alaina Chung MD CHEMISTRY & BLOOD GA S ORDERABLES Performing Organization Address [facility]/ZIP Co de Phone Number [facility] [address] [place] [address] * (ABNORMAL) GLUCOSE, GLUCOMETER (05/01/2013 21:04 EST) Glucose, Fingerstick 67(L) 70 - 100 mg/dl [facility] Land Use Planner ID [id number] [facility] Comment:Test Performed by [facility] 05/01/2013 21:0 4 EST 05/01/2013 21:09 EST Alaina Chung MD CHEMISTRY & BLOOD GA S ORDERABLES Performing Organization Address City/[facility]/ZIP Co de Phone Number [facility] [address] [place] [address] * (ABNORMAL) GLUCOSE, GLUCOMETER (05/01/2013 20:21 EST) Glucose, Fingerstick 62(L) 70 - 100 mg/dl [facility] Land Use Planner ID [id number] [facility] Comment:Test Per[facility] by [facility] 05/01/2013 20:2 1 EST 05/01/2013 20:22 EST Alaina Chung MD CHEMISTRY & BLOOD GA S ORDERABLES Performing Organization Address [facility] de Phone Number [facility] [address] [place] [address] * MRSA MOLECULAR DETECTION (05/01/2013 19:48 EST) Specimen Description Nasal [facility] Result No Staphylococcus aureus detected by PCR. [facility] Specimen of unknown material (specimen) TOPOGRAPHY UNKNOWN / Unknown 05/01/2013 19:48 EST 05/01/2013 21:15 EST Rodney Jose MD MICROBIOLOGY - GEN ERAL ORDERABLES Performing Organization Address [facility] de Phone Number [facility] [address] [place] [address] * EKG 12-LEAD (05/01/2013 19:39 EST) 05/01/2013 19:3 9 EST Narrative FA EKG - 05/04/2013 15:27 EST ?[facility] ? Test Date: ?2013-05-01 Pat Name: ? HILDA CROWLEY ? Department: ?? [facility] ? Room: ? M417 Gender: ? F ?Boom Crane Operator: ?? [id number] : ?1975 ? Requested By: RODNEY JOSE MD Order Number: [id number] ? Reading : ?? GAIL BOSS MD ? Measurements Intervals ?[place] ? Rate: ? 93 ? P: ?54 LA: ? 129 ?QRS: ?47 QRSD: ? 87 [...] Name: HILDA CROWLEY Department: Juanito Bright Room: [facility] [place] Gender: F Boom Crane Operator: [id number] : 1975 Requested By: RODNEY JOSE MD Order Number: [id number] Reading MD: GAIL BOSS MD Measurements Intervals [place] Rate: 93 P: 54 LA: 129 QRS: 47 QRSD: 87 T: 12 QT: 368 QTc: 418 Interpretive Statements SINUS RHYTHM NONSPECIFIC T-WAVE ABNORMALITY I have reviewed the tracing and have either agreed or edited the findingsin this report. Electronically Signed On 05-04-13 15:27:35 EST by JAVIER PATTERSON. Rodney Jose MD CARDIAC ECG ORDERA BLES Performing Organization Address [facility] Co de Phone Number FA EKG * INPATIENT ADD-ON (05/01/2013 18:45 EST) Tests to be added SALICYLATE [facility] Comment:TSH Number for problems [id number] [facility] Accession number [id number] [facility] 05/01/2013 18:4 5 EST 05/01/2013 18:47 EST Rodney Jose MD HEMATOLOGY & PF4 O RDERABLES Performing Organization Address [facility] Co de Phone Number [facility] [address] [place] [address] * (ABNORMAL) GLUCOSE, GLUCOMETER (05/01/2013 18:39 EST) Glucose, Fingerstick 110(H) 70 - 100 mg/dl [facility] Land Use Planner ID [id number] [facility] Comment:Test Performed by [facility] 05/01/2013 18:3 9 EST 05/01/2013 18:40 EST Alaina Chung MD CHEMISTRY & BLOOD GA S ORDERABLES Performing Organization Address [facility] Co de Phone Number [facility] [address] [place] [address] * GLUCOSE, GLUCOMETER (05/01/2013 17:58 EST) Glucose, Fingerstick 97 70 - 100 mg/dl [facility] Land Use Planner ID [id number] [facility] Comment:Test Performed by [facility] 05/01/2013 17:5 8 EST 05/01/2013 18:00 EST Alaina Chung MD CHEMISTRY & BLOOD GA S ORDERABLES Performing Organization Address [facility] Co de Phone Number [facility] [address] [place] [address] * (ABNORMAL) GLUCOSE, GLUCOMETER (05/01/2013 17:13 EST) Glucose, Fingerstick 40(LL) 70 - 100 mg/dl [facility] Land Use Planner ID [id number] [facility] Comment:Test Performed by [facility] 05/01/2013 17:1 3 EST 05/01/2013 17:17 EST Provider Unknown CHEMISTRY & BLOOD GA S ORDERABLES Performing Organization Address [facility] Co de Phone Number [facility] [address] [place] [address] * GLUCOSE, GLUCOMETER (05/01/2013 16:05 EST) Glucose, Fingerstick 76 70 - 100 mg/dl [facility] Land Use Planner ID [id number] [facility] Comment:Test Performed by [facility] 05/01/2013 16:0 5 EST 05/01/2013 16:06 EST Provider Unknown CHEMISTRY & BLOOD GA S ORDERABLES Performing Organization Address [facility] Co de Phone Number [facility] [address] [place] [address] * GLUCOSE, GLUCOMETER (05/01/2013 15:27 EST) Glucose, Fingerstick 70 70 - 100 mg/dl [facility] Land Use Planner ID [id number] [facility] Comment:Test Performed by [facility] 05/01/2013 15:2 7 EST 05/01/2013 15:29 EST Denton Tucker MD CHEMISTRY & BLOOD GA S ORDERABLES Performing Organization Address [facility] Phone Number [facility] [address] [place] [address] * TSH (05/01/2013 15:15 EST) TSH 0.46 0.35 - 5.00 uIU/ml [facility] 05/01/2013 15:1 5 EST 05/01/2013 15:35 EST Haim Mendoza MD CHEMISTRY & BLOOD G ORDERABLES Performing Organization Address [facility] Phone Number [facility] [address] [place] [address] * SALICYLATE (05/01/2013 15:15 EST) Salicylate <1.0 mg/dl [facility] Comment: Negative = <2 mg/dl Therapeutic = <20 mg/dl Toxic = >30 mg/dl 05/01/2013 15:1 5 EST 05/01/2013 15:35 EST Haim Mendoza MD CHEMISTRY & BLOOD G ORDERABLES Performing Organization Address [facility] Phone Number [facility] [address] [place] [address] * ACETAMINOPHEN (05/01/2013 15:15 EST) Acetaminophen <10.0 ug/ml [facility] Comment: Therapeutic range: ??10 - 30 ug/mL Possible toxicity: ??150 - 200 ug/mL Probable toxicity: ??>200 ug/mL Blood specimen (specimen) 05/01/2013 15:15 EST 05/01/2013 15:36 EST Haim Mendoza MD CHEMISTRY & BLOOD G ORDERABLES Performing Organization Address [facility] Co de Phone Number [facility] [address] [place] [address] * ELECTROLYTES (05/01/2013 15:15 EST) Sodium 141 [...] 05/01/2013 documented in this encounter Care Teams E Commerce Merchandising Coordinator Relationship Specialty Start Date End Date Annette Sidhu, RADIO INTELLIGENCE OPERATOR [address] [place] [phone] PCP - General 03/19/13 07/06/19 documented as of this encounter
--- OUTSIDE RECORDS SUMMARY | 2024-02-17 18:44 | XMS_ITS | Encounter Summary ---
Author Organization [facility] Address [address] [place] [address] Care Team Providers Care Hourly Manager Name Role Phone Tamara Neal MD Primary Care Provider + Reason for Visit * Reason Onset Date Comments Anxiety 08/22/2012 Encounter Details Date Type Department Care Team (Late st Contact Info) Description 08/22/2012 Telephone [facility] Family Medicine - [address] [phone] Tamara Neal MD [address] [place] [phone] Anxiety Social History Tobacco Use Types Packs/Day [...] counsellor this afternoon. Rebecca Nam Cell phone [phone]. She states that she is having bad thought, bad panic attacks. Advised to come in today to be seen. Emerita't with Dr. Doss at 4:30. documented in this encounter Plan of Treatment Not on file documented as of this encounter Visit Diagnoses Not on filedocumented in this encounter Care Teams Hourly Manager Relationship Specialty Start Date End Date Tamara Neal MD [address] [place] [phone] PCP - General 09/13/08 03/18/13 documented as of this encounter
--- OUTSIDE RECORDS SUMMARY | 2024-02-17 18:44 | XMS_ITS | Encounter Summary ---
Author Organization [facility] Address [address] [place] [address] Care Team Providers Care Tar Roofer Name Role Phone Tamara Neal MD Primary Care Provider + Reason for Visit * Reason Comments Hip Pain left hip pain Encounter Details Date Type Department Care Team (Latest Contact Info) Description 07/02/2012 13:30 EST Office Visit [facility] Interventional Pain [address] [place] [address] Unknown, Provider, Selvin Lo MD Left hip [...] Deborah Alvarez RN - 07/02/2012 14:10 EST [facility] [address] [address] Patient Instructions You have had your left [...] in this encounter Progress Notes * Selvin Lo MD - 07/02/2012 1345 EST Patient Name: Guzman Jean : 1975 Date of Service: 07/02/2012 Core Stripper: Devonte Boston DO Electrical Engineering Director: Selvin Lo MD Procedure: Left hip intraarticular [...] a labral repair on 02/08/2012 with no fdc relief. She is here for diagnostic/therapeutic hip [...] * Julianne Nazario - 07/02/2012 1339 EST [facility] Rooming Note Does patient have a Sales And Catering Coordinator? yes Is patient NPO? (Solids since midnight [...] encounter Miscellaneous Notes * Scanned Note-Null - PUBLIC RELATIONS REPRESENTATIVE, SCAN 2 - 07/03/2012 1441 EST documented in this encounter Plan of Treatment Not on file documented as of this encounter Visit Diagnoses Diagnosis Left hip pain- Primary Pain in joint, pelvic region and thigh documented in this encounter Care Teams Tar Roofer Relationship Specialty Start Date End Date Tamara Neal MD [address] [place] [phone] PCP - General 09/13/08 03/18/13 documented as of this encounter
--- OUTSIDE RECORDS SUMMARY | 2024-02-17 18:44 | XMS_ITS | Encounter Summary ---
Author Organization [facility] Address [address] [place] [address] Care Team Providers Care Timber Cutter Name Role Phone Tamara Neal MD Primary Care Provider + Reason for Visit * Reason Onset Date Comments Follow-up 09/01/2012 [facility] Walk in clinic on 08/29/2012 for c/o hand pain DX of Cellulitis Encounter Details Date Type Department Care Team (Late st Contact Info) Description 09/01/2012 Telephone [facility] Family [address] [address] Radha Santiago LPN Follow-up ([facility] Walk in clinic on 08/29/2012 [...] see how she was doingregarding her 08/29/12 [facility] walk in clinic visit , and to have her call for a follow up appointment with Dr. Neal. I instructed patient to revisit the ED is symptoms worsen and/or call for anappointment. documented in this encounter Plan of Treatment Not on file documented as of this encounter Visit Diagnoses Not on filedocumented in this encounter Care Teams Timber Cutter Relationship Specialty Start Date End Date Tamara Neal MD [address] [place] [phone] PCP - General 09/13/08 03/18/13 documented as of this encounter
--- OUTSIDE RECORDS SUMMARY | 2024-02-17 18:44 | XMS_ITS | Encounter Summary ---
Author Organization [facility] Address [address] [place] [address] Care Team Providers Care Wage Hand Name Role Phone Tamara Neal MD Primary Care Provider + Annette Sidhu APRN Primary Care Provider Encounter Details Date Type Department Care Team (Late st Contact Info) Description 09/12/2012 Orders Only [facility] Family Medicine [address] [address] Tamara Neal MD [address] [place] [address] [phone] Chronic pain syndrome (Primary Dx) Social History [...] Type 2 diabetes mellitus ([facility]) 8.7(07/07/2015 5:05 EST) No Annmarie Vigil documented as of this encounter Procedures Procedure Name Priority Date/Time Associated Diagnosis Comments OUTPATIENT ADD-ON Routine 09/12/2012 13: 34 EDT Chronic pain syndrome documented in this encounter Results * OUTPATIENT ADD-ON (09/12/2012 13:34 EDT) Tests to be added Sample already at [facility] Comment: 58671, 6 MAU TESTING FOR HEROIN [facility] TEST ID 6MAMU Corrected on 09/12 AT 1419: [place] [id number], 6 MAU TESTING FOR HEROIN Diagnosis Code SEE PRISM DOS 5.14.13 [facility] Number for problems NUNO [id number] [facility] Accession number [id number] 2.1 ML URINE SOR CPT CODE 44545 [facility] Acknowledge ABP WAITING CONFIRMATION FROM [facility] SPOKE TO NATHANAEL @1415 09.12.12 LR [facility] Comment:CONF RECV'D TO ADD T EST 6MAMU 09/15 STB 0805 09/12/2012 13:3 4 EDT 09/12/2012 14:11 EDT Tamara Neal MD HEMATOLOGY & PF4 ORDERABLES [facility] [address] [place] [address] documented in this encounter Visit Diagnoses Diagnosis Chronic pain syndrome- Primary documented in this encounter Care Teams Wage Hand Relationship Specialty Start Date End Date Tamara Neal MD [address] [place] [phone] PCP - General 09/13/08 03/18/13 Annette Sidhu APRN [address] [place] [address] [phone] PCP - General 03/19/13 07/06/19 documented as of this encounter
--- OUTSIDE RECORDS SUMMARY | 2024-02-17 18:44 | XMS_ITS | Encounter Summary ---
Author Organization [facility] Address [address] [place] [address] Care Team Providers Care Solar Thermal Technician Name Role Phone Tamara Neal MD Primary Care Provider + Encounter Details Date Type Department Care Team (Late st Contact Info) Description 08/01/2012 Phlebotomy Only [facility] [address] [place] [address] Etl Bi Developer, Outpatient Screening examination for pulmonary tuberculosis Social [...] account when interpreting QuantiFERON-TB results. Performed by: [facility] Labs: [facility], [address], [place] [address], Lab Dir: Roberto Kathleen III, MD 08/01/2012 9:57 EDT 08/01/2012 10:56 EDT Winston Yusuf MD CHEMISTRY & BLO OD GAS ORDERABLES [facility] [address] [place] [address] documented in this encounter Visit Diagnoses Diagnosis Screening examination for pulmonary tuberculosis documented in this encounter Care Teams Solar Thermal Technician Relationship Specialty Start Date End Date Tamara Neal MD [address] [place] [phone] PCP - General 09/13/08 03/18/13 documented as of this encounter
--- OUTSIDE RECORDS SUMMARY | 2024-02-17 18:44 | XMS_ITS | Encounter Summary ---
Author Organization [facility] Address [address] [place] [address] Care Team Providers Care Retail Tire Sales Manager Name Role Phone Tamara Neal MD Primary Care Provider + Encounter Details Date Type Department Care Team (Late st Contact Info) Description 07/31/2012 Orders Only [address] [phone] Shanon Malik, RN Screening examination for pulmonary [...] TB BY QUANTIFERON, B (08/01/2012 9:57 EDT) [facility] TB by QuantiFERON, B Negative [facility] [...] account when interpreting QuantiFERON-TB results. Performed by: [facility] Labs: [facility], [address], [place] [address], Lab Dir: Roberto Kathleen III, MD 08/01/2012 9:57 EDT 08/01/2012 10:56 EDT Winston Yusuf MD CHEMISTRY & BLO OD GAS ORDERABLES Performing Organization Address City/State/[facility] Co de Phone Number [facility] [address] [place] [address] documented in this encounter Visit Diagnoses Diagnosis Screening examination for pulmonary tuberculosis- Primary documented in this encounter Care Teams Retail Tire Sales Manager Relationship Specialty Start Date End Date Tamara Neal MD [address] [place] [phone] PCP - General 09/13/08 03/18/13 documented as of this encounter
--- OUTSIDE RECORDS SUMMARY | 2024-02-17 18:44 | XMS_ITS | Encounter Summary ---
Author Organization [facility] Address [address] [place] [address] Care Team Providers Care Switch Maker Name Role Phone Tamara Neal MD Primary Care Provider + Reason for Visit * Reason Onset Date Comments 05/08/2012 Encounter Details Date Type Department Care Team (Late st Contact Info) Description 05/08/2012 Telephone [facility] Family Medicine [address] [phone] Tamara Neal MD [address] [place] [address] [phone] Social History Tobacco Use Types Packs/Day Years [...] states she had a HCG done through [facility] and the results are negative. Doesn't need any further follow up at this time. * Telephone Encounter - Mecca Ball MD - 05/08/2012 1723 EST Discussed with preceptor. Plan for pt to have beta HCG drawn and if >2000, should have TVUS withGyn MARILU to r/o ectopic . * Telephone Encounter - Almita Ponce - 05/08/2012 7545 EST Patient calling, states she has an [...] care documented in this encounter Care Teams Switch Maker Relationship Specialty Start Date End Date Tamara Neal MD [address] [place] [phone] PCP - General 09/13/08 03/18/13 documented as of this encounter
--- OUTSIDE RECORDS SUMMARY | 2024-02-17 18:44 | XMS_ITS | Encounter Summary ---
Author Organization [facility] Address [address] [place] [address] Care Team Providers Care Plastic Cnc Machine Operator Name Role Phone Tamara Neal MD Primary Care Provider + Reason for Visit * Reason Onset Date Comments Injections 06/20/2012 Encounter Details Date Type Department Care Team (Late st Contact Info) Description 06/20/2012 Telephone [facility] Family Medicine - [address] [address] Tamara Neal MD [address] [place] [phone] Injections Social History Tobacco Use Types Packs/Day [...] on filedocumented in this encounter Care Teams Plastic Cnc Machine Operator Relationship Specialty Start Date End Date Tamara Neal MD [address] [place] [phone] PCP - General 09/13/08 03/18/13 documented as of this encounter
--- OUTSIDE RECORDS SUMMARY | 2024-02-17 18:44 | XMS_ITS | Encounter Summary ---
Author Organization [facility] Address [address] [place] [address] Care Team Providers Care Rehabilitation Nurse Name Role Phone Tamara Neal MD Primary Care Provider + Reason for Visit * Reason Onset Date Comments Other 11/03/2012 Called to invite to IOP program Encounter Details Date Type Department Care Team ([facility] st Contact Info) Description 11/03/[address] [phone] Joaquín Arana, [facility] [address] [facility] [address] [place] [phone] Other (Called to invite to IOP program) [...] on filedocumented in this encounter Care Teams Rehabilitation Nurse Relationship Specialty Start Date End Date Tamara Neal MD [address] [place] [address] [phone] PCP - General 09/13/08 03/18/13 documented as of this encounter
--- OUTSIDE RECORDS SUMMARY | 2024-02-17 18:44 | XMS_ITS | Encounter Summary ---
Author Organization [facility] Address [address] [place] [address] Care Team Providers Care Technical Trainer Name Role Phone Tamara Neal MD Primary Care Provider + Reason for Visit * Reason Onset Date Comments Facial Pain 09/30/2012 Encounter Details Date Type Department Care Team (Late st Contact Info) Description 09/30/2012 Telephone [facility] Family Medicine - [address] [phone] Tamara Neal MD [address] [place] [address] [phone] Facial Pain Social History Tobacco Use Types [...] Encounter - Santa Guerrero RN - 10/02/2012 7796 EDT Since the patient has not returned [...] documented as of this encounter Care Teams Technical Trainer Relationship Specialty Start Date End Date Tamara Neal MD [address] [place] [phone] PCP - General 09/13/08 03/18/13 documented as of this encounter
--- OUTSIDE RECORDS SUMMARY | 2024-02-17 18:44 | XMS_ITS | Encounter Summary ---
Author Organization [facility] Address [address] [place] [address] Care Team Providers Care Farm Machinery Mechanic Name Role Phone Tamara Neal MD Primary Care Provider + Reason for Visit * Reason Comments Hip Pain Follow-up for left h ip pain. Encounter Details Date Type Department Care Team (Late st Contact Info) Description 04/30/2012 9:15 EST Office Visit [facility] Family Medicine [address] [address] Tamara Neal MD [address] [place] [address] [phone] Left hip pain (Primary Dx); Type II [...] fluticasone (FLONASE) 50 mcg/Actuation nasal spray 1 [place] by Nasal route daily. 1 Bottle 2 [...] D GAS ORDERABLES [facility] [address] [place] [address] documented in this encounter Visit Diagnoses Diagnosis [...] documented as of this encounter Care Teams Farm Machinery Mechanic Relationship Specialty Start Date End Date Tamara Neal MD [address] [place] [phone] PCP - General 09/13/08 03/18/13 documented as of this encounter
--- OUTSIDE RECORDS SUMMARY | 2024-02-17 18:44 | XMS_ITS | Encounter Summary ---
Author Organization [facility] Address [address] [place] [address] Care Team Providers Care Survey Engineer Name Role Phone Tamara Neal MD Primary Care Provider + Reason for Visit * Reason Onset Date Comments Medication Management 08/04/2012 Encounter Details Date Type Department Care Team (Late st Contact Info) Description 08/04/2012 Telephone [facility] Family Medicine [address] [phone] Tamara Neal MD [address] [place] [phone] Medication Management Social History Tobacco Use Types [...] Telephone Encounter - Victoriano Lewis - 08/05/2012 3470 EDT Pt made aware that prescription was [...] documented as of this encounter Care Teams Survey Engineer Relationship Specialty Start Date End Date Tamara Neal MD [address] [place] [phone] PCP - General 09/13/08 03/18/13 documented as of this encounter
--- OUTSIDE RECORDS SUMMARY | 2024-02-17 18:44 | XMS_ITS | Encounter Summary ---
Author Organization [facility] Address [address] [place] [address] Care Team Providers Care Public Health Aide Name Role Phone Tamara Neal MD Primary Care Provider + Reason for Visit * Reason Comments Hip Pain MEDICATION CHECK Encounter Details Date Type Department Care Team (Late st Contact Info) Description 05/27/2012 17:45 EST Office [address] [facility] Family Medicine - [address] [phone] Tamara Neal MD [address] [place] [address] [phone] Left hip pain (Primary Dx); Diabetes mellitus type II, uncontrolled ([facility]) Discharge Disposition: Auto Discharge Social History Tobacco [...] optho exam in past 6-8 mos at [facility] Patient Active Problem List Diagnoses ??? Routine [...] fluticasone (FLONASE) 50 mcg/Actuation nasal spray 1 [place] by Nasal route daily. 1 Bottle 2 [...] documented as of this encounter Care Teams Public Health Aide Relationship Specialty Start Date End Date Tamara Neal MD [address] [place] [phone] PCP - General 09/13/08 03/18/13 documented as of this encounter
--- OUTSIDE RECORDS SUMMARY | 2024-02-17 18:44 | XMS_ITS | Encounter Summary ---
Author Organization [facility] Address [address] [place] [address] Care Team Providers Care Receiving Manager Name Role Phone Tamara Neal MD Primary Care Provider + Reason for Visit * Reason Onset Date Comments Medication Questions 07/18/2012 Encounter Details Date Type Department Care Team (Late st Contact Info) Description 07/18/2012 Telephone [facility] Family Medicine - [address] [phone] Tamara Neal MD [address] [place] [address] [phone] Medication Questions Social History Tobacco Use Types [...] Telephone Encounter - Ramesh Alcoceranette - 07/21/2012 5125 EDT Guzman is calling back to check the status of her refills. Please call her back. * Telephone Encounter - Almtia Ponce - 07/21/2012 1032 EDT Patient calling today to see when she can picking machine operator helper her scripts for her pain medication. * [...] documented as of this encounter Care Teams Receiving Manager Relationship Specialty Start Date End Date Tamara Neal MD [address] [place] [phone] PCP - General 09/13/08 03/18/13 documented as of this encounter
--- OUTSIDE RECORDS SUMMARY | 2024-02-17 18:44 | XMS_ITS | Encounter Summary ---
Author Organization [facility] Address [address] [place] [address] Care Team Providers Care Testing Shaking Shipping Name Role Phone Tamara Neal MD Primary Care Provider + Reason for Visit * Reason Comments Depression Anxiety Encounter Details Date Type Department Care Team (Late st Contact Info) Description 08/22/2012 16:30 EDT Office Visit [facility] Family Medicine [address] [address] Unknown, Provider, Blanka Doss MD [address] [place] [phone] Anxiety (Primary Dx); Suicidal ideation Social [...] Police due to how long the drivefrom [place] took) -Pt in office states that if [...] [facility] a [facility] -No current substance abuse except for [...] fluticasone (FLONASE) 50 mcg/Actuation nasal spray 1 [place] by Nasal route daily. 1 Bottle 2 [...] presenting for serve anxiety/suicidal thoughts presenting to [facility] unable tocope and with suicidal thoughts without a clear plan. As per above discussed pt's plan to drive to [facility] ED. ED attending aware. Discussed with Crisis, crisis aware. Will forward to the pt's PCP. Plan: Guzman was seen today for depression and anxiety. Diagnoses and associated orders for this visit: Anxiety Suicidal ideation D/W Dr. Bernard. Signed, Blanka Doss MD 08/22/2012 18:06 Radio Tester documented in this encounter Plan of Treatment Not on file documented as of this encounter Visit Diagnoses Diagnosis Anxiety- Primary Anxiety state, unspecified Suicidal ideation documented in this encounter Care Teams Testing Shaking Shipping Relationship Specialty Start Date End Date Tamara Neal MD [address] [place] [phone] PCP - General 09/13/08 03/18/13 documented as of this encounter
--- OUTSIDE RECORDS SUMMARY | 2024-02-17 18:44 | XMS_ITS | Encounter Summary ---
Author Organization [facility] Address [address] [place] [address] Care Team Providers Care Asbestos Worker Name Role Phone Tamara Neal MD Primary Care Provider + Reason for Visit * Reason Comments Suicidal Pt states she saw PC P today for anxiety, depression, SI. Encounter Details Date Type Department Care Team (Late st Contact Info) Description 08/22/2012 18:04 EDT - 08/22/2012 23:16 EDT Emergency [facility] Emergency Department - [place] [address] [place] [address] Eros Jane, PA-C [address] [place], [place] [address] Emergency, MD Kamila Depressed state (Primary Dx) [...] encounter Discharge Instructions * Discharge Instructions* Regan aJne - 08/22/2012 22:56 EDT You have been referred to the [facility] for outpatient psychiatric treatment. They will call you to set up an intake appointment. If they have not called you by the middle of next week, please call them at: [phone] In the meantime: - If you have suicidal thoughts please return to the emergency department or you may call [facility] at [phone] - Follow-up with your PCP and outpatient [...] 50 mcg/Actuation nasal sprayIndications:Pelon rgic rhinitis 1 [place] by Nasal route daily. 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 Today on [...] and has been offered a bed at [facility] with possible admission to [facility] psychiatry on Saturday but she has declined. [...] with family tomorrow and seeking help at [facility]) and endorses hope for the future. PLAN: - Will refer to [facility]. Will defer decision for [facility] versus [facility] to [facility] intake. - In the meantime patient has been given # for Crisis and instructed to follow- up with PCP/current therapist or return to ED if SI returns The above was reviewed with my attending, Dr. Davis. Masood Oviedo MD documented in this encounter ED Notes * Jasper Laws RN - 08/22/2012 2312 EDT Pt d/c ambulatory with a normal [...] by crisis team, encouraged to followup with [facility] program. Discharge home, stable condition, safety plan [...] 08/22/2012 1815 EDT Pt to FR with elevator technician 1:1. * Milan Castro RN - [...] EDT TCALL: JI CROWLEY 1975 [facility], ACTIVE SI, HX SUICIDE ATTEMPT. NOTE TAKEN BY DR ROSAS ([facility]). documented in this encounter Miscellaneous Notes * Scanned Note-Null - PAYMENT ANALYST, SCAN 2 - 08/29/2012 1124 EDT * Scanned Note-Null - PAYMENT ANALYST, SCAN 2 - 08/26/2012 195 EDT documented in this encounter Plan of Treatment Not on file documented as of this encounter Visit Diagnoses Diagnosis Depressed state- Primary Depressive disorder, not elsewhere classified documented in this encounter Care Teams Asbestos Worker Relationship Specialty Start Date End Date Tamara Neal MD [address] [place] [phone] PCP - General 09/13/08 03/18/13 documented as of this encounter
--- OUTSIDE RECORDS SUMMARY | 2024-02-17 18:44 | XMS_ITS | Encounter Summary ---
Author Organization [facility] Address [address] [place] [address] Care Team Providers Care Ocular Care Aide Name Role Phone Tamara Neal MD Primary Care Provider + Reason for Visit * Reason Onset Date Comments Other 06/25/2012 Encounter Details Date Type Department Care Team (Late st Contact Info) Description 06/25/[address] [facility] Family Medicine - [address] [phone] Tamara Neal MD [address] [place] [address] [phone] Other Social History Tobacco Use Types Packs/Day [...] 1625 EST Call placed to Crisis Center ([facility]) and [facility] did [facility] * Telephone Encounter - Victoriano Lewis - [...] on filedocumented in this encounter Care Teams Ocular Care Aide Relationship Specialty Start Date End Date Tamara Neal MD [address] [place] [phone] PCP - General 09/13/08 03/18/13 documented as of this encounter
--- OUTSIDE RECORDS SUMMARY | 2024-02-17 18:44 | XMS_ITS | Encounter Summary ---
Author Organization [facility] Address [address] [place] [address] Care Team Providers Care Hoop Riveting Machine Operator Name Role Phone Tamara Neal MD Primary Care Provider + Reason for Visit * Reason Onset Date Comments Follow-up 08/14/2012 Encounter Details Date Type Department Care Team (Late st Contact Info) Description 08/14/2012 Telephone [facility] Family Medicine [address] [phone] Santa Guerrero, RN Follow-up Social History Tobacco [...] - 08/14/2012 1540 EDT Rebecca Nam from [facility] called, states I saw Ryan on 08/12. She was not doing well. I referred to Marky walkereapoli many times but she kept refusing due to work and family. She has quit her job and has finally agreed to go. Her anxiety is worse and she still has suicidal ideations. If Dr. Neal would like to speak to me she can call me at [phone] Work And [phone] Cell. documented in this encounter Plan of Treatment Not on file documented as of this encounter Visit Diagnoses Not on filedocumented in this encounter Care Teams Hoop Riveting Machine Operator Relationship Specialty Start Date End Date Tamara Neal MD [address] [place] [phone] PCP - General 09/13/08 03/18/13 documented as of this encounter
--- OUTSIDE RECORDS SUMMARY | 2024-02-17 18:44 | XMS_ITS | Encounter Summary ---
Author Organization [facility] Address [address] [place] [address] Care Team Providers Care Customer Support Engineer Name Role Phone Tamara Neal MD Primary Care Provider + Reason for Visit * Reason Onset Date Comments Medication Questions 07/09/2012 Encounter Details Date Type Department Care Team (Late st Contact Info) Description 07/09/2012 Telephone [facility] Family Medicine - [address] [phone] Tamara Neal MD [address] [place] [address] [phone] Medication Questions Social History Tobacco Use Types [...] * Telephone Encounter - Victoriano Lewis - 07/09/2012 8012 EDT Pt called wanting to let Dr [...] as of this encounter Care Teams Customer Support Engineer Relationship Specialty Start Date End Date Tamara Neal MD [address] [place] [phone] PCP - General 09/13/08 03/18/13 documented as of this encounter
--- OUTSIDE RECORDS SUMMARY | 2024-02-17 18:44 | XMS_ITS | Encounter Summary ---
Author Organization [facility] Address [address] [place] [address] Care Team Providers Care Automotive Sales Manager Name Role Phone Tamara Neal MD Primary Care Provider + Reason for Visit * Reason Onset Date Comments Vaginitis 06/16/2012 Encounter Details Date Type Department Care Team (Late st Contact Info) Description 06/16/2012 Telephone [facility] Family Medicine - [address] [address] Tamara Neal MD [address] [place] [address] [phone] Vaginitis Social History Tobacco Use Types Packs/Day [...] Encounter - Tamara Neal MD - 06/16/2012 1406 EST Done * Telephone Encounter - Awilda [...] Telephone Encounter - Mikki Peñaloza - 06/16/2012 0962 EST Pt has been on antibiotic and would like diflucan sent to [facility] on [address] documented in this encounter Plan of Treatment Not on file documented as of this encounter Visit Diagnoses Not on filedocumented in this encounter Care Teams Automotive Sales Manager Relationship Specialty Start Date End Date Tamara Neal MD [address] [place] [phone] PCP - General 09/13/08 03/18/13 documented as of this encounter
--- OUTSIDE RECORDS SUMMARY | 2024-02-17 18:44 | XMS_ITS | Encounter Summary ---
Author Organization [facility] Address [address] [place] [address] Care Team Providers Care Perinatal Instructor Name Role Phone Tamara Neal MD Primary Care Provider + Reason for Visit * Reason Comments Hip Pain Back Pain Encounter Details Date Type Department Care Team (Late st Contact Info) Description 09/09/2012 16:45 EDT Office Visit [facility] Family Medicine [address] [address] Tamara Neal MD [address] [place] [address] [phone] Left hip pain (Primary Dx) Discharge Disposition: [...] Notes * Tamara Neal MD - 09/09/2012 5676 EDT Subjective: Patient ID: Guzman Jean is an 37 y.o. female. Chief Complaint Patient presents with ??? Hip Pain ??? 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 1 Bottle 2 [...] TABS 2 week supply On 08/14 at [facility] ED eval for med clearance for [place] had UD6 that was NEG for opiates In June her UD6 and opiate conf was appropriate here Need to check both today I gave her one Rx for Dilaudid 4-8 mg BID, no more than 2.5 tabs daily (#30) and if urine is appropriate will be able to pharmacy picking technician second #30 TAB in 10-14 days - [...] U 56.1 mg/dL [facility] Specific [place] 1.006 [facility] pH 6.4 [facility] Oxidants Negative [facility] Comment: Performed or Referred by: [facility] Labs: [facility] [employer] [facility], [facility] [place] [address], Lab Dir: Roberto Kathleen III, MD URINE / Unknown 09/09/2012 1 6:37 EDT 09/09/2012 18:56 EDT Tamara Neal MD CHEMISTRY & BLOO D GAS ORDERABLES [facility] [address] [place] [address] * MISCELLANEOUS TEST, OTHER (09/09/2012 16:37 EDT) Test Name 6 Monoacetylmorphine (6MAM), Urine [facility] Result See Pathology Scanne d Report in PRISM. [facility] Comment: (Note) 6-Monoacetylmorphine by GC/MS = Negative Interpretation: ??Negative Reference Value: ??Cutoff: ??5 Ref Lab Test performed by: Christi GONZALES Comment: [place], [place] URINE / Unknown 09/09/2012 1 6:37 EDT 09/09/2012 18:56 EDT Tamara Neal MD CHEMISTRY & BLOO D GAS ORDERABLES [facility] [address] [place] [address] * OPIATE CONFIRMATION (09/09/2012 16:37 EDT) Pathologist [facility] Opiates Positive Cutoff: 300 ng/mL [facility] [...] Comment: (Note) If heroin use suspected, test 82487, 8-cdlk-yfdxra-morphine(6-MAU) heroin metabolite, can be added at an additional charge. Oxycodone Negative <100 ng/mL [facility] Oxymorphone Negative <100 ng/mL [facility] Comment: (Note) This report is intended for use in clinical monitoring and management of patients. It is not intended for use in employment-related drug testing. Performed by: [facility], [facility], [place] [address], Mop Handle Assembler: Rose Lincoln, Ph.D. Urine specimen (specimen) URINE / Unknown 09/09/2012 16:37 EDT 09/09/2012 18:56 EDT Tamara Neal MD URINALYSIS ORDER YOON Performing Organization Address [facility] [place]/[facility] Co de Phone Number [facility] [address] [place] [address] * DRUG SCREEN 6 (09/09/2012 16:37 EDT) [...] ng/ml Cannabinoid Scrn, Ur Negative screen. [facility] Comment: Confirmation testing available upon request. Suitable for medical purposes only. Will not detect all drugs within class. Cutoff = 50 ng/ml Cocaine Metabolites, Ur Negative screen. [facility] Comment: Confirmation testing available upon request. Suitable for medical purposes only. Will not detect all drugs within class. Cutoff = 300 ng/ml Opiate Scrn, Ur Presumptive positive, interpret with caution. [facility] Comment: Confirmation testing available upon request. Suitable for medical purposes only. Will not detect all drugs within class. Cutoff = 300 ng/ml Assay less sensitive to oxycodone and metabolites. Assay does not detect methadone. Urine specimen (specimen) URINE / Unknown 09/09/2012 16:37 EDT 09/09/2012 18:56 EDT Tamara Neal MD URINALYSIS ORDER YOON Performing Organization Address [facility] [place]/[facility] de Phone Number [facility] [address] [place] [address] documented in this encounter Visit Diagnoses Diagnosis [...] documented as of this encounter Care Teams Perinatal Instructor Relationship Specialty Start Date End Date Tamara Neal MD [address] [place] [phone] PCP - General 09/13/08 03/18/13 documented as of this encounter
--- OUTSIDE RECORDS SUMMARY | 2024-02-17 18:44 | XMS_ITS | Encounter Summary ---
Author Organization [facility] Address [address] [place] [address] Care Team Providers Care Outcomes Manager Name Role Phone Tamara Neal MD Primary Care Provider + Encounter Details Date Type Department Care Team (Late st Contact Info) Description 05/08/2012 Phlebotomy Only [address] [address] [employer], Outpatient Social History Tobacco Use Types Packs/Day [...] on filedocumented in this encounter Care Teams Outcomes Manager Relationship Specialty Start Date End Date Tamara Neal MD [address] [place] [phone] PCP - General 09/13/08 03/18/13 documented as of this encounter
--- OUTSIDE RECORDS SUMMARY | 2024-02-17 18:44 | XMS_ITS | Encounter Summary ---
Author Organization [facility] Address [address] [place] [address] Care Team Providers Care Sap Pi Developer Name Role Phone Tamara Neal MD Primary Care Provider + Encounter Details Date Type Department Care Team (Latest Contact Info) Description 11/21/2012 13:30 EDT - 11/21/2012 22:00 EDT Hospital Encounter [facility] [address] [place] [address] Charlee Haider NP [address] [place] [phone] Discharge Disposition: Home or Self Care Social [...] mcg/actuation nasal sprayIndications:Pelon rgic rhinitis Instill 1 [place] into both nostrils daily. 1 Bottle 2 [...] on filedocumented in this encounter Care Teams Sap Pi Developer Relationship Specialty Start Date End Date Tamara Neal MD [address] [place] [phone] PCP - General 09/13/08 03/18/13 documented as of this encounter
--- OUTSIDE RECORDS SUMMARY | 2024-02-17 18:44 | XMS_ITS | Encounter Summary ---
Author Organization [facility] Address [address] [place] [address] Care Team Providers Care Turn Sewer Name Role Phone Tamara Neal MD Primary Care Provider + Reason for Visit * Reason Comments Other Encounter Details Date Type Department Care Team ([facility] st Contact Info) Description 09/03/2012 10:30 EDT Office Visit [facility] - [address] [address] [address] [facility] 111 [facility] 4 [place] [phone] Unspecified episodic mood disorder (Primary Dx); Anxiety [...] unspecified documented in this encounter Care Teams Turn Sewer Relationship Specialty Start Date End Date Tamara Neal MD [address] [place] [address] [phone] PCP - General 09/13/08 03/18/13 documented as of this encounter
--- OUTSIDE RECORDS SUMMARY | 2024-02-17 18:44 | XMS_ITS | Encounter Summary ---
Author Organization [facility] Address [address] [place] [address] Care Team Providers Care Revenue Tax Specialist Name Role Phone Tamara Neal MD Primary Care Provider + Reason for Visit * Reason Comments Pelvic Pain Pt to ED with lower pelvic pain since last night Encounter Details Date Type Department Care Team (Late st Contact Info) Description 06/05/2012 16:09 EST - 06/06/2012 0:01 EST Emergency [facility] Emergency Department - [address] [phone] Rojelio Vera PA-C [address] [phone] Mecca Lora PA-C 111 [facility], Level [address] [place] [address] Emergency, MD Kamila Cystitis (Primary [...] 50 mcg/Actuation nasal sprayIndications:Pelon rgic rhinitis 1 [place] by Nasal route daily. 1 Bottle 2 [...] for supervision. 06/17/2012 5:24 * Kell Oneill, [facility] - 06/09/2012 3562 EST Urine culture growing streptococcus, lactobacillus, and [...] with Dr. Resendiz. Kell Oneill, Pharm.D. Pager [phone] * Zuleyka Robert RN - 06/05/20122006 EST Blood drawn via saline lock per protocol, purple tube(s) sent to lab per order. documented in this encounter Miscellaneous Notes * Scanned Note-Null - [facility] STITCHER, SCAN 2 - 06/13/2012 0945 EST documented in this encounter Plan of [...] - GENE RAL ORDERABLES Performing Organization Address [facility] Co de Phone Number [facility] [address] [place] [address] * (ABNORMAL) URINE MICROSCOPIC ONLY (06/05/2012 20:31 [...] PA-C URINALYSIS ORDERABL ES Performing Organization Address [facility] Co de Phone Number [facility] [address] [place] [address] * POCT URINE TEST (06/05/2012 20:07 EST) [...] Ketones Trace(A) Neg [facility] Specific [place] 1.025 1.001 - 1.035 [facility] Blood Trace(A) Neg [facility] pH 5.5 4.6 - 8.0 [facility] Protein Trace(A) Neg [facility] Urobilinogen 0.2 0.2 - 1.0 E.U./dl [facility] Nitrite Neg Neg [facility] Leuk Esterase 3+(A) Neg [facility] ophthalmic asst ID [id number] [facility] Comment:Test performed at Em [facility]ency Department Urine specimen (specimen) 06/05/2012 20:04 EST 06/05/2012 20:06 EST Rojelio Vera PA-C POINT OF CARE TEST ORDERABLES Performing Organization Address City/State/[facility] Co de Phone Number [facility] [address] [place] [address] * (ABNORMAL) DIFFERENTIAL (06/05/2012 19:39 EST) Neutrophils [...] & PF4 OR DERABLES Performing Organization Address [facility] Co de Phone Number [facility] [address] [place] [phone] * (ABNORMAL) HEMAGRAM (06/05/2012 19:39 EST) WBC [...] & PF4 OR DERABLES Performing Organization Address [facility] de Phone Number [facility] [address] [place] [address] documented in this encounter Visit Diagnoses Diagnosis [...] 06/05/2012 documented in this encounter Care Teams Revenue Tax Specialist Relationship Specialty Start Date End Date Tamara Neal MD [address] [place] [phone] PCP - General 09/13/08 03/18/13 documented as of this encounter
--- OUTSIDE RECORDS SUMMARY | 2024-02-17 18:44 | XMS_ITS | Encounter Summary ---
Author Organization [facility] Address [address] [place] [address] Care Team Providers Care Sewing Machine Mechanic Name Role Phone Tamara Neal MD Primary Care Provider + Reason for Visit * Reason Comments Hip Pain Left Encounter Details Date Type Department Care Team (Late st Contact Info) Description 08/12/2012 16:15 EDT Office Visit [facility] [place] Family Medicine [address] [address] Tamara Neal MD [address] [place] [phone] Chronic pain syndrome (Primary Dx); Left hip [...] - 08/14/2012 1116 EDT Subjective: Patient ID: Gzuman Jean is an 37 y.o. female. Chief [...] QT In counseling with Rebecca Nam from [place] Would like me to speak to her [...] fluticasone (FLONASE) 50 mcg/Actuation nasal spray 1 [place] by Nasal route daily. 1 Bottle 2 [...] is in counseling with Rebecca Nam at [place]. I need to touch bases with her [...] documented as of this encounter Care Teams Sewing Machine Mechanic Relationship Specialty Start Date End Date Tamara Neal MD [address] [place] [phone] PCP - General 09/13/08 03/18/13 documented as of this encounter
--- OUTSIDE RECORDS SUMMARY | 2024-02-17 18:44 | XMS_ITS | Encounter Summary ---
Author Organization [facility] Address [address] [place] [address] Care Team Providers Care Assembler Equipment Name Role Phone Tamara Neal MD Primary Care Provider + Encounter Details Date Type Department Care Team (Late st Contact Info) Description 08/01/2012 9:49 EDT - 08/01/2012 23:59 EDT Hospital Encounter [facility] - [address] [address] Winston Yusuf MD 111 [facility], [facility] [address] [place] [phone] Discharge Disposition: Home or Self Care Social [...] 50 mcg/Actuation nasal sprayIndications:Pelon rgic rhinitis 1 [place] by Nasal route daily. 1 Bottle 2 [...] filedocumented in this encounter Care Teams Assembler Equipment Relationship Specialty Start Date End Date Tamara Neal MD [address] [place] [phone] PCP - General 09/13/08 03/18/13 documented as of this encounter
--- OUTSIDE RECORDS SUMMARY | 2024-02-17 18:44 | XMS_ITS | Encounter Summary ---
Author Organization [facility] Address [address] [place] [address] Care Team Providers Care Gear Shaver Set Up Operator Name Role Phone Tamara Neal MD Primary Care Provider + Reason for Visit * Reason Onset Date Comments Results 07/03/2012 Encounter Details Date Type Department Care Team (Late st Contact Info) Description 07/03/[address] [facility] Interventional Pain [address] [place], [place] [phone] Selvin Lo MD Results Social History Tobacco [...] referred by Betina * Telephone Encounter - Sabnio Lazo - 07/03/2012 1534 EST 80-90% 12+ HOURS DR LAMBERT TO GET REPORT ALSO documented in this encounter Plan of Treatment Not on file documented as of this encounter Visit Diagnoses Not on filedocumented in this encounter Care Teams Gear Shaver Set Up Operator Relationship Specialty Start Date End Date Tamara Neal MD [address] [place] [phone] PCP - General 09/13/08 03/18/13 documented as of this encounter
--- OUTSIDE RECORDS SUMMARY | 2024-02-17 18:44 | XMS_ITS | Encounter Summary ---
Author Organization [facility] Address [address] [place] [address] Care Team Providers Care Blocker Automatic Name Role Phone Tamara Neal MD Primary Care Provider + Reason for Visit * Reason Onset Date Comments Prior Auth, Medication 10/01/2012 Encounter Details Date Type Department Care Team (Late st Contact Info) Description 10/01/2012 Telephone [facility] Family Medicine - [address] [address] Tamara Neal MD [address] [place] [phone] Prior Auth, Medication Social History Tobacco Use [...] Telephone Encounter - Almita Ponce - 10/01/2012 1962 EDT [place] Medicaid denied Cymbalta. Patient must try two medications from the following two medication categories. Two from tricyclic and two from the Anticonvulsive lists. documented in this encounter Plan of Treatment Not on file documented as of this encounter Visit Diagnoses Not on filedocumented in this encounter Care Teams Blocker Automatic Relationship Specialty Start Date End Date Tamara Neal MD [address] [place] [phone] PCP - General 09/13/08 03/18/13 documented as of this encounter
--- OUTSIDE RECORDS SUMMARY | 2024-02-17 18:44 | XMS_ITS | Encounter Summary ---
Author Organization [facility] Address [address] [place] [address] Care Team Providers Care Flange Machine Operator Name Role Phone Tamara Neal MD Primary Care Provider + Encounter Details Date Type Department Care Team (Latest Contact Info) Description 05/08/2012 17:10 EST - 05/08/2012 23:59 EST Hospital Encounter [facility] [address] [place] [address] Neida Dial MD [address] [place] [phone] Discharge Disposition: Home or Self Care [...] mcg/Actuation nasal sprayIndications:Pelon rgic rhinitis 1 [place] by Nasal route daily. 1 Bottle 2 [...] BLOOD GA S ORDERABLES Performing Organization Address City/State/[facility] Co de Phone Number [facility] [address] [place] [address] documented in this encounter Visit Diagnoses Not on filedocumented in this encounter Care Teams Flange Machine Operator Relationship Specialty Start Date End Date Tamara Neal MD [address] [place] [phone] PCP - General 09/13/08 03/18/13 documented as of this encounter
--- OUTSIDE RECORDS SUMMARY | 2024-02-17 18:44 | XMS_ITS | Encounter Summary ---
Author Organization [facility] Address [address] [place] [address] Care Team Providers Care Bat Carrier Name Role Phone Tamara Neal MD Primary Care Provider + Reason for Visit * Reason Onset Date Comments Medications Refill 08/27/2012 Encounter Details Date Type Department Care Team (Late st Contact Info) Description 08/27/2012 Refill [facility] Family Medicine [address] [address] Tamara Neal MD [address] [place] [phone] Medications Refill Social History Tobacco Use Types [...] Stewart - 08/28/2012 1636 EDT Spoke with [facility], they have the script there, will [...] on filedocumented in this encounter Care Teams Bat Carrier Relationship Specialty Start Date End Date Tamara Neal MD [address] [place] [phone] PCP - General 09/13/08 03/18/13 documented as of this encounter
--- OUTSIDE RECORDS SUMMARY | 2024-02-17 18:44 | XMS_ITS | Encounter Summary ---
Author Organization [facility] Address [address] [place] [address] Care Team Providers Care Nuclear Spectroscopist Name Role Phone Tamara Neal MD Primary [...] 18:13 EST - 06/09/2012 18:46 EST Emergency [facility] Emergency Department - Main [place] [address] [place] [address] Martin Gaston, PA-C [address] [phone] Emergency, MD [place] Dysuria (Primary Dx) Discharge Disposition: Home or [...] TRACT INFECTION IN WOMEN: AFTER YOUR VISIT (MOSOTHO) documented in this encounter Medications at Time [...] 50 mcg/Actuation nasal sprayIndications:Pelon rgic rhinitis 1 [place] by Nasal route daily. 1 Bottle 2 [...] encounter Miscellaneous Notes * Scanned Note-Null - [facility], SCAN 2 - 06/13/2012 1021 EST documented [...] 1900, STAT 1845 (Given - Provid er: Kutr Bethea RN) documented in this encounter Orders Medications Ordered That Russel ht Not Have Been Administered Count Last Ordered Date First Ordered Date Ciprofloxacin 500 mg Tab STARTER PACK 1 02/2013 documented in this encounter Care Teams Nuclear Spectroscopist Relationship Specialty Start Date End Date Tamara Neal MD [address] [place] [phone] PCP - General 09/13/08 03/18/13 documented as of this encounter
--- OUTSIDE RECORDS SUMMARY | 2024-02-17 18:44 | XMS_ITS | Encounter Summary ---
Author Organization [facility] Address [address] [place] [address] Care Team Providers Care Aircraft Avionics Technician Name Role Phone Tamara Neal MD Primary Care Provider + Encounter Details Date Type Department Care Team (Late st Contact Info) Description 11/21/2012 Results Only [facility] Laboratory Services - [facility] ([facility] [place] [place] [address] [place] [address] Charlee Haider I, SEED ANALYSIS LABORATORY ASSISTANT [address] [place] [phone] Social History Tobacco Use Types [...] PANEL (BMP) Routine 11/21/2012 16:07 EDT URINE [id number] NE RATIO (ACR) Routine 11/21/2012 15:01 EDT documented in this encounter Results * (ABNORMAL) BASIC METABOLIC PANEL (11/21/2012 16:07 EDT) Sodium 138 136 - 145 mEq/L [facility] Potassium 4.0 3.5 - 5.0 mEq/L [facility] Chloride 103 96 - 110 mEq/L [facility] CO2 21(L) 24 - 32 mEq/L [facility] BUN 11 10 - 26 mg/dl [...] 7 EDT 11/21/2012 19:53 EDT Charlee Haider SEED ANALYSIS LABORATORY ASSISTANT CHEMISTRY & BLOOD FL S ORDERABLES Performing Organization Address [facility] [facility] Co de Phone Number [facility] [address] [place] [address] * ALBUMIN, URINE (11/21/2012 15:01 EDT) Creatinine, Urn [place] 36.0 mg/dl [facility] Ur Albumin mg/dl <0.2 mg/dl [facility] Ur Alb ug/mg Crea Unable to calculate ug/mg Crea result. ug/mg Crea [facility] Comment: Normal: <30 ug/mg creat High: 30-300 ug/mg creat Very high and nephrotic: >300 ug/mg creat 11/21/2012 15:0 1 EDT 11/22/2012 15:40 EDT Charlee I Kathiai SEED ANALYSIS LABORATORY ASSISTANT CHEMISTRY & BLOOD GA S ORDERABLES Performing Organization Address [facility]/[place] [facility] Co de Phone Number [facility] [address] [place] [address] documented in this encounter Visit Diagnoses Not on filedocumented in this encounter Care Teams Aircraft Avionics Technician Relationship Specialty Start Date End Date Tamara Neal MD [address] [place] [phone] PCP - General 09/13/08 03/18/13 documented as of this encounter
--- OUTSIDE RECORDS SUMMARY | 2024-02-17 18:44 | XMS_ITS | Encounter Summary ---
Author Organization [facility] Address [address] [place] [address] Care Team Providers Care Tool Grinder Operator External Name Role Phone Tamara Neal MD Primary Care Provider + Reason for Visit * Reason Onset Date Comments Results 09/17/2012 Encounter Details Date Type Department Care Team (Late st Contact Info) Description 09/17/2012 Telephone [facility] Family Medicine - [address] [address] Tamara Neal MD [address] [place] [phone] Results Social History Tobacco Use Types Packs/Day [...] 1056 EDT Guzman was advised of Dr. Nael's response from 09/18 @ 6:18. States Dilaudid [...] script for hydromorphone will be ready to berry picker, due on Saturday. * Telephone Encounter - [...] documented as of this encounter Care Teams Tool Grinder Operator External Relationship Specialty Start Date End Date Tamara Neal MD [address] [place] [phone] PCP - General 09/13/08 03/18/13 documented as of this encounter
--- OUTSIDE RECORDS SUMMARY | 2024-02-17 18:44 | XMS_ITS | Encounter Summary ---
Author Organization [facility] Address [address] [place] [address] Care Team Providers Care Chief Order Dispatcher Name Role Phone Tamara Neal MD Primary Care Provider + Reason for Visit * Reason Comments Pain Encounter Details Date Type Department Care Team (Late st Contact Info) Description 04/01/2012 17:15 EST Office Visit [facility] Family Medicine - [address] [address] Tamara Neal MD [address] [place] [phone] Left hip pain (Primary Dx) Social History [...] fluticasone (FLONASE) 50 mcg/Actuation nasal spray 1 [place] by Nasal route daily. 1 Bottle 2 [...] mg at bedtime Await RECS from Dr. aj who just saw her earlier today Other [...] as of this encounter Care Teams Chief Order Dispatcher Relationship Specialty Start Date End Date Tamara Neal MD [address] [place] [phone] PCP - General 09/13/08 03/18/13 documented as of this encounter
--- OUTSIDE RECORDS SUMMARY | 2024-02-17 18:44 | XMS_ITS | Encounter Summary ---
Author Organization [facility] Address [address] [place] [address] Care Team Providers Care Diamond Sander Name Role Phone Tamara Neal MD Primary Care Provider + Annette Sidhu APRN Primary Care Provider [phone] Encounter Details Date Type Department Care Team (Late st Contact Info) Description 10/06/2012 Documentation Visit [facility] Sports Medicine Program - [address] [address] Alberto Moffett MD [address] [place] [phone] Social History Tobacco Use Types Packs/Day [...] her pain including medication, physical therapy, injections, child care provider, and acupuncture. At this [...] - Alberto Moffett MD rn Dictation Date: [id number] cc: Tamara Neal MD, [address] documented in this encounter Plan of Treatment Not on file documented as of this encounter Goals Goal Patient Goal Type Associated Problems Recent Progress Patient-Stated? Author HEMOGLOBIN A1C < 7.0 Result Component Type 2 diabetes mellitus (FORMERLY [facility]) 8.7(07/07/2015 5:05 EST) No Annmarie Vigil documented as of this encounter Visit Diagnoses Not on filedocumented in this encounter Care Teams Diamond Sander Relationship Specialty Start Date End Date Tamara Neal MD [address] [place] [phone] PCP - General 09/13/08 03/18/13 Annette Sidhu APRN NPI: [id number] [place] [phone] PCP - General 03/19/13 07/06/19 documented as of this encounter
--- OUTSIDE RECORDS SUMMARY | 2024-02-17 18:44 | XMS_ITS | Encounter Summary ---
Author Organization [facility] Address [address] [place] [address] Care Team Providers Care Mate Chief Name Role Phone Tamara Neal MD Primary Care Provider + Reason for Visit * Reason Onset Date Comments Appointment Related 05/22/2012 Encounter Details Date Type Department Care Team (Late st Contact Info) Description 05/22/2012 Telephone [facility] Sports Medicine Program - [address] [address] Alberto Moffett MD [address] [place] [phone] Appointment Related Social History Tobacco [...] about stopping blood thinners and needing a warehouse driver. Shena Sterling documented in this encounter Plan of Treatment Not on file documented as of this encounter Visit Diagnoses Not on filedocumented in this encounter Care Teams Mate Chief Relationship Specialty Start Date End Date Tamara Neal MD [address] [place] [phone] PCP - General 09/13/08 03/18/13 documented as of this encounter
--- OUTSIDE RECORDS SUMMARY | 2024-02-17 18:44 | XMS_ITS | Encounter Summary ---
Author Organization [facility] Address [address] [place] [address] Care Team Providers Care Migrant Leader Name Role Phone Tamara Neal MD Primary Care Provider + Encounter Details Date Type Department Care Team (Late st Contact Info) Description 09/03/2012 14:01 EDT - 09/03/2012 23:59 EDT Hospital Encounter [facility] [place], [place] - [address] [address] Pilar Curry MD [address] [facility], [facility] Level 4 [place] [phone] Discharge Disposition: Home or Self Care Social [...] 50 mcg/Actuation nasal sprayIndications:Pelon rgic rhinitis 1 [place] by Nasal route daily. 1 Bottle 2 [...] or Self Half-Way documented in this encounter Miscellaneous Notes * Scanned Note-Null - DEPOT MANAGER, SCAN 2 - 11/05/2012 0841 EDT documented in this encounter Plan of Treatment Not on file documented as of this encounter Visit Diagnoses Not on filedocumented in this encounter Care Teams Migrant Leader Relationship Specialty Start Date End Date Tamara Neal MD [address] [place] [phone] PCP - General 09/13/08 03/18/13 documented as of this encounter
--- OUTSIDE RECORDS SUMMARY | 2024-02-17 18:44 | XMS_ITS | Encounter Summary ---
Author Organization [facility] Address [address] [place] [address] Care Team Providers Care Tc Operator Name Role Phone Tamara Neal MD Primary Care Provider + Reason for Visit * Reason Comments Hip Pain left hip pain Encounter Details Date Type Department Care Team (Late st Contact Info) Description 05/20/2012 9:30 EST Office Visit [facility] Sports Medicine Program - [address] [address] Alberto Moffett MD [address] [place] [phone] Left hip pain (Primary Dx) Discharge [...] EST Sports Medicine Service [facility] [address] [place] [address] PROGRESS/FOLLOWUP NOTE - 05/20/2012 PROBLEM: 1. [...] - JG Job ID: SM Doc ID: [id number] Ext Doc ID: [id number] cc: Tamara Neal MD * Alberto Moffett MD - 05/20/2012 1018 EST This office note has been dictated. documented in this encounter Plan of Treatment Not on file documented as of this encounter Visit Diagnoses Diagnosis Left hip pain- Primary Pain in joint, pelvic region and thigh documented in this encounter Care Teams Tc Operator Relationship Specialty Start Date End Date Tamara Neal MD [address] [place] [phone] PCP - General 09/13/08 03/18/13 documented as of this encounter
--- OUTSIDE RECORDS SUMMARY | 2024-02-17 18:44 | XMS_ITS | Encounter Summary ---
Author Organization [facility] Address [address] [place] [address] Care Team Providers Care Timber Cruiser Name Role Phone Tamara Neal MD Primary Care Provider + Reason for Visit * Reason Comments Hip Pain Left Encounter Details Date Type Department Care Team (Late st Contact Info) Description 2012 16:15 EDT Office Visit [facility] Family Medicine [address] [phone] Tamara Neal MD [address] [place] [phone] Left hip pain (Primary Dx); UTI (lower [...] Notes * Tamara Neal MD - 07/18/2012 3621 EDT Subjective: Patient ID: Guzman Jean is an 37 y.o. female. Chief Complaint Patient presents with ??? Hip Pain Left HPI Here for f/u recent UTI as well as chronic left hip pain Never went on trip to [place] (asked me specifically to fill Dilaudid Rx [...] fluticasone (FLONASE) 50 mcg/Actuation nasal spray 1 [place] by Nasal route daily. 1 Bottle 2 [...] and if appropriate will be able to flower buncher or picker next Rx when due (14 days from [...] * OPIATE CONFIRMATION (2012 16:47 EDT) Pathologist [facility] Opiates Positive Cutoff: 300 ng/mL [facility] [...] use in employment-related drug testing. Performed by: [facility], [address] [place] [address], [place] [address], Insurance Investigator: Rose Lincoln, Ph.D. Urine specimen (specimen) URINE / Unknown 2012 16:47 EDT 2012 19:53 EDT Tamara Neal MD URINALYSIS ORDER YOON Performing Organization Address [facility]/ZIP Co de Phone Number [facility] [address] [place] [address] * BACTERIAL CULTURE, URINE (2012 16:47 EDT) [facility] Specimen Description Urine [facility] Result Less than 10,000 CFU/ml Mixed gram positive growth [facility] Report Status 07/17/2012 Final [facility] Urine specimen (specimen) URINE / Unknown 2012 16:47 EDT 2012 19:53 EDT Tamara Neal MD MICROBIOLOGY - G ENERAL ORDERABLES Performing Organization Address [facility] Co de Phone Number [facility] [address] [place] [address] * DRUG SCREEN 6 (2012 16:47 EDT) [...] MD URINALYSIS ORDER YOON Performing Organization Address City/State/[facility] Co de Phone Number [facility] [address] [place] [address] documented in this encounter Visit Diagnoses Diagnosis Left hip pain- Primary Pain in joint, pelvic region and thigh UTI (lower urinary tract infection) Urinary tract infection, site not specified documented in this encounter Discontinued Medications Medication Sig Discontinue Reason Start Date End Da te phenazopyridine (PYRIDIUM) 100 mg tablet Turns urine orange Therapy completed 06/09/2012 2012 documented as of this encounter Care Teams Timber Cruiser Relationship Specialty Start Date End Date Tamara Neal MD [address] [place] [phone] PCP - General 09/13/08 03/18/13 documented as of this encounter
--- OUTSIDE RECORDS SUMMARY | 2024-02-17 18:44 | XMS_ITS | Encounter Summary ---
Author Organization [facility] Address [address] [place] [address] Care Team Providers Care Guest Experience Manager Name Role Phone Tamara Neal MD Primary Care Provider + Reason for Referral * Consult (Routine/Next Available) - Closed Specialty Diagnoses / Procedures Referred By Savannah ashton Referred To Contact Diagnoses Adjustment reaction Tamara Neal MD [address] [place] [phone] Referral ID Status Reason Start Date Expiration Date V isits Requested Visits Authorized [id number] Closed Specialty Services Required 06/17/2012 1 1 Question Answer Concerns Resulting in Behavioral Health Consultation: Depression Comments cHRONIC HIP PAIN, RECENT SEPARATION/DIVORCE sIGNIFICANT STRESS COUNSELING AT [facility] WITH Alfred Cruz Reason for Visit * Reason Comments Hip Pain Left Encounter Details Date Type Department Care Team (Late st Contact Info) Description 06/17/2012 17:00 EST Office Visit [facility] Family Medicine [address] [phone] Tamara Neal MD [address] [place] [phone] Left hip pain (Primary Dx); Adjustment [...] Notes * Tamara Neal MD - 06/17/2012 1967 EST Subjective: Patient ID: uGzman Jean is an 36 y.o. female. Chief [...] fluticasone (FLONASE) 50 mcg/Actuation nasal spray 1 [place] by Nasal route daily. 1 Bottle 2 [...] mentions needs to re-schedule again Trip to [place] next week (Sat - Sat 06/22-06/28) We [...] vacation, cannot have prescription filled while in [place] I was not willing to give additional [...] Will REF to Alfred Cruz here at [facility] to start with No immediate suicidal [...] as of this encounter Care Teams Guest Experience Manager Relationship Specialty Start Date End Date Tamara Neal MD [address] [place] [phone] PCP - General 09/13/08 03/18/13 documented as of this encounter
--- OUTSIDE RECORDS SUMMARY | 2024-02-17 18:44 | XMS_ITS | Encounter Summary ---
Author Organization [facility] Address [address] [place] [address] Care Team Providers Care Division Officer Weapons Department Name Role Phone Tamara Neal MD Primary Care Provider + Reason for Referral * Other Type (Routine/Next Available) - Closed Specialty Diagnoses / Procedures Referred By Contac t Referred To Contact Pharmacist Diagnoses Left hip pain Depression Tamara Neal MD [address] [place] [phone] Referral ID Status Reason Start Date Expiration Date V isits Requested Visits Authorized [id number] Closed Other 09/24/2012 1 1 Question Answer [...] Info) Description 09/24/2012 12:30 EDT Office Visit [facility] Family Medicine - [address] [place] [address] [address] Tamara Neal MD [address] [place] [phone] Allergic rhinitis (Primary Dx); Left hip [...] mcg/actuation nasal sprayIndications:Allergi c rhinitis Instill 1 [place] into both nostrils daily. 1 Bottle 2 [...] related [facility] but from our scanned records of [...] for Guzman Hinds is still waiting for PAUMA placement, s/p intake 2 weeks ago I [...] (FLONASE) 50 mcg/actuation nasal spray; Instill 1 [place] into both nostrils daily. Left hip pain, [...] WILL NO LONGER PRESCRIBE CONTROLLED SUBSTANCES NO [facility] PROVIDER WILL PRESCRIBE NARCOTICS FOR [...] therapist earlier today She has been through [place] intake, just waiting for space to open up Rebecca is happy to continue to meet with Guzman until this happens and then also after her PAUMA treatment Rebecca was made aware of narcotic [...] (FLONASE) 50 mcg/Actuation nasal sprayIndications:Allergic rhinitis 1 [place] by Nasal route daily. Reorder 08/01/2010 09/24/2012 citalopram (CELEXA) 40 mg tablet Take 0.5 Tabs by mouth daily. 06/17/2012 09/24/2012 documented as of this encounter Care Teams Division Officer Weapons Department Relationship Specialty Start Date End Date Tamara Neal MD [address] [place] [phone] PCP - General 09/13/08 03/18/13 documented as of this encounter
--- OUTSIDE RECORDS SUMMARY | 2024-02-17 18:45 | XMS_ITS | Encounter Summary ---
Author Organization [facility] Address [address] [place] [address] Care Team Providers Care Log Rafter Name Role Phone Tamara Neal MD Primary Care Provider + Reason for Visit * Reason Onset Date Comments Appointment Related 03/12/2012 Encounter Details Date Type Department Care Team (Late st Contact Info) Description 03/12/2012 Telephone [facility] Rehabilitation Therapy - [facility] [address] [place], [place] [phone] Rox Velasquez, PT [address] [facility] [address] [facility] [place] [phone] Appointment Related Social History Tobacco [...] on filedocumented in this encounter Care Teams Log Rafter Relationship Specialty Start Date End Date Tamara Neal MD [address] [place] [phone] PCP - General 09/13/08 03/18/13 documented as of this encounter
--- OUTSIDE RECORDS SUMMARY | 2024-02-17 18:45 | XMS_ITS | Encounter Summary ---
Author Organization [facility] Address [address] [place] [address] Care Team Providers Care Manager Maritime Name Role Phone Tamara Neal MD Primary Care Provider + Reason for Visit * Reason Onset Date Comments Appointment Related 12/26/2011 Encounter Details Date Type Department Care Team (Late st Contact Info) Description 12/26/2011 Telephone [facility] Rehabilitation Therapy - Medical Office Building [address] [place] [phone] Marina Soni, PhD Appointment Related Social History [...] filedocumented in this encounter Care Teams Manager Maritime Relationship Specialty Start Date End Date Tamara Neal MD [address] [place] [phone] PCP - General 09/13/08 03/18/13 documented as of this encounter
--- OUTSIDE RECORDS SUMMARY | 2024-02-17 18:45 | XMS_ITS | Encounter Summary ---
Author Organization [facility] Address [address] [place] [address] Care Team Providers Care Passenger Service Agent Name Role Phone Tamara Neal MD Primary Care Provider + Reason for Visit * Reason Comments Post-OP Follow Up Encounter Details Date Type Department Care Team (Late st Contact Info) Description 04/01/2012 9:30 EST Office Visit [facility] Sports Medicine Program - [address] [address] Alberto Moffett MD [address] [place] [phone] Left hip pain (Primary Dx) Social [...] Sports Medicine [facility] [address] [place] [address] PROGRESS/FOLLOWUP NOTE - 04/01/2012 PROBLEM: Left [...] - MLD Job ID: SM Doc ID: [id number] Ext Doc ID: [id number] cc: Tamara Neal MD * Alberto Moffett MD - 04/01/2012 0942 EST This office note has been dictated. documented in this encounter Plan of Treatment Not on file documented as of this encounter Visit Diagnoses Diagnosis Left hip pain- Primary Pain in joint, pelvic region and thigh documented in this encounter Care Teams Passenger Service Agent Relationship Specialty Start Date End Date Tamara Neal MD [address] [place] [phone] PCP - General 09/13/08 03/18/13 documented as of this encounter
--- OUTSIDE RECORDS SUMMARY | 2024-02-17 18:45 | XMS_ITS | Encounter Summary ---
Author Organization [facility] Address [address] [place] [address] Care Team Providers Care Contact Lens Polisher Name Role Phone Tamara Neal MD Primary Care Provider + Encounter Details Date Type Department Care Team (Latest Contact Info) Description 02/12/2012 10:44 EDT - 02/12/2012 23:59 EDT Hospital Encounter [address] [place] [address] Alberto Moffett MD [address] [place] [phone] Discharge Disposition: Home or Self Care [...] 50 mcg/Actuation nasal sprayIndications:Pelon rgic rhinitis 1 [place] by Nasal route daily. 1 Bottle 2 [...] on filedocumented in this encounter Care Teams Contact Lens Polisher Relationship Specialty Start Date End Date Tamara Neal MD [address] [place] [phone] PCP - General 09/13/08 03/18/13 documented as of this encounter
--- OUTSIDE RECORDS SUMMARY | 2024-02-17 18:45 | XMS_ITS | Encounter Summary ---
Author Organization [facility] Address [address] [place] [address] Care Team Providers Care Special Systems Technician Name Role Phone Tamara Neal MD Primary Care Provider + Reason for Visit * Reason Comments Hip Pain Encounter Details Date Type Department Care Team (Late st Contact Info) Description 03/28/2012 Documentation Visit [facility] Rehabilitation Therapy - [address] [phone] Carl Velasquez, PT [address] [facility] [address] [facility] [place] [phone] Social History Tobacco Use Types [...] EST [facility] [address] [place] [address] Physical Therapy Discontinue Note Date: 03/28/2012 Reason [...] to continue with physical therapy here at [facility]. She has not since returned for any further appointments. Chart review indicates she has continued physical therapy at [facility]. ASSESSMENT: Unable to assess her current status, [...] CARL VELASQUEZ PT, DPT 03/28/2012 11:55 ; [email or web address] documented in this encounter Plan of Treatment Not on file documented as of this encounter Visit Diagnoses Not on filedocumented in this encounter Care Teams Special Systems Technician Relationship Specialty Start Date End Date Tamara Neal MD [address] [place] [phone] PCP - General 09/13/08 03/18/13 documented as of this encounter
--- OUTSIDE RECORDS SUMMARY | 2024-02-17 18:45 | XMS_ITS | Encounter Summary ---
Author Organization [facility] Address [address] [place] [address] Care Team Providers Care Spring Tester Name Role Phone Tamara Neal MD Primary Care Provider + Encounter Details Date Type Department Care Team (Late st Contact Info) Description 10/23/2011 Abstract [facility] Spine Program - [address] [place] [address] Marcin Chacko PA-C 192 [facility] [place] [phone] Social History Tobacco Use Types [...] on filedocumented in this encounter Care Teams Spring Tester Relationship Specialty Start Date End Date Tamara Neal MD [address] [place] [phone] PCP - General 09/13/08 03/18/13 documented as of this encounter
--- OUTSIDE RECORDS SUMMARY | 2024-02-17 18:45 | XMS_ITS | Encounter Summary ---
Author Organization [facility] Address [address] [place] [address] Care Team Providers Care Trimming Caser Name Role Phone Tamara Neal MD Primary Care Provider + Reason for Visit * Reason Onset Date Comments Other 02/07/2012 Encounter Details Date Type Department Care Team (Late st Contact Info) Description 02/07/[address] [facility] Family Medicine - [address] [phone] Tamara Neal MD [address] [place] [phone] Other Social History Tobacco Use Types Packs/Day [...] Encounter - Santa Guerrero RN - 02/07/[address] aj will provide narcotics for [...] on filedocumented in this encounter Care Teams Trimming Caser Relationship Specialty Start Date End Date Tamara Neal MD [address] [place] [phone] PCP - General 09/13/08 03/18/13 documented as of this encounter
--- OUTSIDE RECORDS SUMMARY | 2024-02-17 18:45 | XMS_ITS | Encounter Summary ---
Author Organization [facility] Address [address] [place] [address] Care Team Providers Care Obstetrics And Gynecology Professor Name Role Phone Tamara Neal MD Primary Care Provider + Reason for Visit * Reason Comments Post-OP Follow Up Encounter Details Date Type Department Care Team (Late st Contact Info) Description 02/12/2012 15:30 EDT Office Visit [facility] Family Medicine [address] [phone] Tamara Neal MD [address] [place] [phone] Left hip pain (Primary Dx) Social History [...] documented as of this encounter Care Teams Obstetrics And Gynecology Professor Relationship Specialty Start Date End Date Tamara Neal MD [address] [place] [phone] PCP - General 09/13/08 03/18/13 documented as of this encounter
--- OUTSIDE RECORDS SUMMARY | 2024-02-17 18:45 | XMS_ITS | Encounter Summary ---
Author Organization [facility] Address [address] [place] [address] Care Team Providers Care Skiver Sock Linings Name Role Phone Tamara Neal MD Primary Care Provider + Encounter Details Date Type Department Care Team (Latest Contact Info) Description 10/30/2011 8:00 EDT - 10/30/2011 23:59 EDT Hospital Encounter [facility] - Medical Office Building [phone] Tamara Neal MD [address] [place] [phone] Discharge Disposition: Home or Self Care Social [...] 50 mcg/Actuation nasal sprayIndications:Pelon rgic rhinitis 1 [place] by Nasal route daily. 1 Bottle 2 [...] Code Departure Means Destination Home or Self [facility] documented in this encounter Plan of Treatment Not on file documented as of this encounter Visit Diagnoses Not on filedocumented in this encounter Care Teams Skiver Sock Linings Relationship Specialty Start Date End Date Tamara Neal MD [address] [place] [phone] PCP - General 09/13/08 03/18/13 documented as of this encounter
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
--- OUTSIDE RECORDS SUMMARY | 2024-02-17 18:45 | XMS_ITS | Encounter Summary ---
Author Organization [facility] Address [address] [place] [address] Care Team Providers Care Coal Cutter Name Role Phone Tamara Neal MD Primary Care Provider + Reason for Referral * Other Type (Routine/Next Available) - Closed Specialty Diagnoses / Procedures [facility] Referred To Contact Diagnoses Insomnia Tamara Neal MD [address] [place] [phone] Referral ID Status Reason Start Date Expiration Date V isits Requested Visits Authorized [id number] Closed Other 10/17/2011 1 1 Question Answer [...] Info) Description 10/17/2011 11:00 EDT Office Visit [facility] Family Medicine - [address] [address] Tamara Neal MD [address] [place] [phone] Chronic pain syndrome (Primary Dx); Insomnia [...] this encounter Patient Instructions * Patient Instructions* Tamaar Neal MD - 10/17/2011 11:44 EDT PLEASE GIVE SALES ASSOCIATE AND FINANCIAL COUNSELOR PHONE NUMBER FOR DIGITAL PHOTO PRINTER WORKERS COMP so I can try to [...] Notes * Tamara Neal MD - 10/21/2011 8962 EDT S: here to f/u on chronic pain issues (LBP/hip pain As well as recent suicide gesture with insulin OD 2 weeks ago Spent 1 night in [facility] Has been Living at her parents house [...] 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 [...] to call and discuss hip surgery with director case management, unclear why cannot pursue necessary procedure during [...] documented as of this encounter Care Teams Coal Cutter Relationship Specialty Start Date End Date Tamara Neal MD [address] [place] [phone] PCP - General 09/13/08 03/18/13 documented as of this encounter
--- OUTSIDE RECORDS SUMMARY | 2024-02-17 18:45 | XMS_ITS | Encounter Summary ---
Author Organization [facility] Address [address] [place] [address] Care Team Providers Care Psych Nurse Name Role Phone Tamara Neal MD Primary Care Provider + Reason for Visit * Reason Onset Date Comments Appointment Related 02/22/2012 Encounter Details Date Type Department Care Team (Late st Contact Info) Description 02/22/2012 Telephone [facility] Rehabilitation Therapy - [facility] [address] [place] [address] Tamara Neal MD [address] [place] [phone] Appointment Related Social History Tobacco Use Types [...] on filedocumented in this encounter Care Teams Psych Nurse Relationship Specialty Start Date End Date Tamara Neal MD [address] [place] [phone] PCP - General 09/13/08 03/18/13 documented as of this encounter
--- OUTSIDE RECORDS SUMMARY | 2024-02-17 18:45 | XMS_ITS | Encounter Summary ---
Author Organization [facility] Address [address] [place] [address] Care Team Providers Care Disabilities Caregiver Name Role Phone Tamara Neal MD Primary Care Provider + Reason for Visit * Reason Onset Date Comments Medications Refill 11/07/2011 Encounter Details Date Type Department Care Team (Late st Contact Info) Description 11/07/2011 Refill [facility] Family Medicine [address] [address] Tamara Neal MD [address] [place] [phone] Medications Refill Social History Tobacco Use Types [...] documented as of this encounter Care Teams Disabilities Caregiver Relationship Specialty Start Date End Date Tamara Neal MD [address] [place] [phone] PCP - General 09/13/08 03/18/13 documented as of this encounter
--- OUTSIDE RECORDS SUMMARY | 2024-02-17 18:45 | XMS_ITS | Encounter Summary ---
Author Organization [facility] Address [address] [place] [address] Care Team Providers Care Consumer Loan Underwriter Name Role Phone Tamara Neal MD Primary Care Provider + Reason for Visit * Reason Onset Date Comments Medication Management 03/04/2012 Hydromorph one is only available in 4 mg tablets Encounter Details Date Type Department Care Team (Late st Contact Info) Description 03/04/[address] [address] Tamara Neal MD [address] [place] [phone] Medication Management (Hydromorphone is only [...] 03/05/2012 1025 EST Barber the pharmacist at [place] is aware of Dr. Neal's response from [...] EST This nurse spoke with Barber at [facility]. Patient brought in 2 scripts for [...] Telephone Encounter - Kay Alcocer - 03/04/2012 1737 EST [facility] pharmacy is calling because they only have 4 mg Hydromorphone tabs available. Guzman would like to get these filled. Please call back. documented in this encounter Plan of Treatment Not on file documented as of this encounter Visit Diagnoses Not on filedocumented in this encounter Care Teams Consumer Loan Underwriter Relationship Specialty Start Date End Date Tamara Neal MD [address] [place] [phone] PCP - General 09/13/08 03/18/13 documented as of this encounter
--- OUTSIDE RECORDS SUMMARY | 2024-02-17 18:45 | XMS_ITS | Encounter Summary ---
Author Organization [facility] Address [address] [place] [address] Care Team Providers Care Mapping Editor Name Role Phone Tamara Neal MD Primary Care Provider + Reason for Visit * Reason Comments Post-OP Follow Up Encounter Details Date Type Department Care Team (Late st Contact Info) Description 02/12/2012 11:30 EDT Office Visit [facility] Sports Medicine Program - [address] [phone] Alberto Moffett MD [address] [place] [phone] Acetabular labrum tear (Primary Dx) Social [...] EDT Sports Medicine Service [facility] [address] [place] [phone] PROGRESS/FOLLOWUP NOTE - 02/12/2012 PROCEDURE: Left [...] Moffett MD - Alberto Moffett MD - [facility] Job ID: SM Doc ID: [id number] Ext Doc ID: [id number] cc: Tamara Neal MD * Hussain Castro MD - 02/12/2012 1056 EDT This office note has been dictated. documented in this encounter Plan of Treatment Not on file documented as of this encounter Visit Diagnoses Diagnosis Acetabular labrum tear- Primary Sprain and strain of other specified sites of hip and thigh documented in this encounter Care Teams Mapping Editor Relationship Specialty Start Date End Date Tamara Neal MD [address] [place] [phone] PCP - General 09/13/08 03/18/13 documented as of this encounter
--- OUTSIDE RECORDS SUMMARY | 2024-02-17 18:45 | XMS_ITS | Encounter Summary ---
Author Organization [facility] Address [address] [place] [address] Care Team Providers Care Pharmacy Benefit Manager Name Role Phone Tamara Neal MD Primary Care Provider + Reason for Visit * Reason Onset Date Comments Appointment Related 10/23/2011 Encounter Details Date Type Department Care Team (Late st Contact Info) Description 10/23/2011 Telephone [facility] Rehabilitation Therapy - Medical Office Building [address] [place] [address] Stephanie Elizabeth, PT [address] [place] [address] Appointment Related Social History Tobacco Use Types [...] 0813 EDT Rehabilitation [facility]rapies MEDICAL OFFICE BUILDING ([facility]) [address] [facility] [address] Phone: [phone] Fax: [phone] The patient called to cancel today's appointment due to overslept. Liseth Hankins 10/23/2011 8:13 documented in this encounter Plan of Treatment Not on file documented as of this encounter Visit Diagnoses Not on filedocumented in this encounter Care Teams Pharmacy Benefit Manager Relationship Specialty Start Date End Date Tamara Neal MD [address] [place] [phone] PCP - General 09/13/08 03/18/13 documented as of this encounter
--- OUTSIDE RECORDS SUMMARY | 2024-02-17 18:45 | XMS_ITS | Encounter Summary ---
Author Organization [facility] Address [address] [place] [address] Care Team Providers Care Radon Inspector Name Role Phone Tamara Neal MD Primary Care Provider + Reason for Visit * Reason Onset Date Comments Medications Refill 01/25/2012 Encounter Details Date Type Department Care Team (Late st Contact Info) Description 01/25/2012 Refill [facility] Family Medicine [address] [address] Tamara Neal MD [address] [place] [phone] Medications Refill Social History Tobacco Use Types [...] Telephone Encounter - Nadine Stewart - 01/25/2012 6514 EDT Name of Medication - cyclobenzapine 10mg [...] documented as of this encounter Care Teams Radon Inspector Relationship Specialty Start Date End Date Tamara Neal MD [address] [place] [phone] PCP - General 09/13/08 03/18/13 documented as of this encounter
--- OUTSIDE RECORDS SUMMARY | 2024-02-17 18:45 | XMS_ITS | Encounter Summary ---
Author Organization [facility] Address [address] [place] [address] Care Team Providers Care Automobile Mechanic Apprentice Name Role Phone Tamara Neal MD Primary Care Provider + Encounter Details Date Type Department Care Team (Latest Contact Info) Description 10/04/2011 8:34 EDT - 10/04/2011 23:59 EDT Hospital Encounter [facility] - Medical Office Building [phone] Tamara Neal MD [address] [place] [phone] Discharge Disposition: Home or Self Care Social [...] 50 mcg/Actuation nasal sprayIndications:Pelon rgic rhinitis 1 [place] by Nasal route daily. 1 Bottle [...] on filedocumented in this encounter Care Teams Automobile Mechanic Apprentice Relationship Specialty Start Date End Date Tamara Neal MD [address] [place] [phone] PCP - General 09/13/08 03/18/13 documented as of this encounter
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
--- OUTSIDE RECORDS SUMMARY | 2024-02-17 18:45 | XMS_ITS | Encounter Summary ---
Author Organization [facility] Address [address] [place] [address] Care Team Providers Care Director Of Undergraduate Admissions Name Role Phone Tamara Neal MD Primary Care Provider + Reason for Visit * Reason Onset Date Comments Appointment Related 10/05/2011 Encounter Details Date Type Department Care Team (Late st Contact Info) Description 10/05/2011 Telephone [facility] Rehabilitation Therapy - Medical Office Building [address] [place] [phone] Naima Rodney, PT Appointment Related Social History [...] We received a call from the W/C case fitter, Sabine at [facility]. She has requested the most recent notes on this patient. The last note she has received was 09/18/11. I have faxed her the notes on 09/27/11 and 10/04/11. documented in this encounter Plan of Treatment Not on file documented as of this encounter Visit Diagnoses Not on filedocumented in this encounter Care Teams Director Of Undergraduate Admissions Relationship Specialty Start Date End Date Tamara Neal MD [address] [place] [phone] PCP - General 09/13/08 03/18/13 documented as of this encounter
--- OUTSIDE RECORDS SUMMARY | 2024-02-17 18:45 | XMS_ITS | Encounter Summary ---
Author Organization [facility] Address [address] [place] [address] Care Team Providers Care Fuel Truck Driver Name Role Phone Tamara Neal MD Primary Care Provider + Reason for Visit * Reason Comments Hip Pain Encounter Details Date Type Department Care Team (Late st Contact Info) Description 11/26/2011 11:15 EDT Office Visit [facility] Family Medicine [address] [address] Tamara Neal MD [address] [place] [phone] Left hip pain; Type 2 diabetes mellitus [...] from the original note were not included. [facility] Patient Instructions Saline Nasal Washes: After Your [...] Where can you learn more? Go to [email or web address] Enter B784 in the search box to learn more about Saline Nasal Washes: After Your Visit. ?? [phone] [employer]. Care instructions adapted under license by [facility], [facility]. This care instruction is for use with your licensed healthcare professional. If you have questions about a medical condition or this instruction, always ask your healthcare professional. [employer] disclaims any warranty or liability for your use of this information. Content Version: 9.2.118656; Last Revised: January 09, 2011 documented in [...] D [facility] [address] [place] [address] documented in this encounter Visit Diagnoses Diagnosis [...] documented as of this encounter Care Teams Fuel Truck Driver Relationship Specialty Start Date End Date Tamara Neal MD [address] [place] [phone] PCP - General 09/13/08 03/18/13 documented as of this encounter
--- OUTSIDE RECORDS SUMMARY | 2024-02-17 18:45 | XMS_ITS | Encounter Summary ---
Author Organization [facility] Address [address] [place] [address] Care Team Providers Care Xm1 Tank Driver Name Role Phone Tamara Neal MD Primary Care Provider + Reason for Visit * Reason Onset Date Comments Prior Auth, Medication 02/25/2012 Encounter Details Date Type Department Care Team (Late st Contact Info) Description 02/25/2012 Telephone [facility] Family Medicine [address] [phone] Tamara Neal MD [address] [place] [phone] Prior Auth, Medication Social History Tobacco Use [...] 02/26/2012 0856 EDT Nini the pharmacist at [facility] states I can't approve the Rozerem because [...] a prior auth. Please advise. ID # [id number] documented in this encounter Plan of Treatment Not on file documented as of this encounter Visit Diagnoses Not on filedocumented in this encounter Care Teams Xm1 Tank Driver Relationship Specialty Start Date End Date Tamara Neal MD [address] [place] [phone] PCP - General 09/13/08 03/18/13 documented as of this encounter
--- OUTSIDE RECORDS SUMMARY | 2024-02-17 18:45 | XMS_ITS | Encounter Summary ---
Author Organization [facility] Address [address] [place] [address] Care Team Providers Care Striker Off Name Role Phone Tamara Neal MD Primary Care Provider + Reason for Visit * Reason Onset Date Comments Appointment Related 10/04/2011 Encounter Details Date Type Department Care Team (Late st Contact Info) Description 10/04/2011 Telephone [facility] Rehabilitation Therapy - [address] [phone] Erika Anderson MD [address] [place] [phone] Appointment Related Social History Tobacco Use [...] on filedocumented in this encounter Care Teams Striker Off Relationship Specialty Start Date End Date Tamara Neal MD [address] [place] [phone] PCP - General 09/13/08 03/18/13 documented as of this encounter
--- OUTSIDE RECORDS SUMMARY | 2024-02-17 18:45 | XMS_ITS | Encounter Summary ---
Author Organization [facility] Address [address] [place] [address] Care Team Providers Care Corporate Safety Director Name Role Phone Tamara Neal MD Primary Care Provider + Reason for Visit * Reason Onset Date Comments Letter for School/Work 10/04/2011 Encounter Details Date Type Department Care Team (Late st Contact Info) Description 10/04/2011 Telephone [facility] Family Medicine [address] [address] Tamara Neal MD [address] [place] [phone] Letter for School/Work Social History Tobacco Use [...] a return to work note faxed to [phone]. * Telephone Encounter - Awilda Fang, RN [...] 10/06/2011 0950 EDT Please fax letter to #[phone] * Telephone Encounter - Yancy Galarza - 10/06/2011 0947 EDT Patient calling stating she needs a note to return to work on Saturday. When note is complete please fax to patient at [phone]. * Telephone Encounter - Stacy Hawkins - 10/04/2011 0563 EDT Patient needs a note so that she may return to work. Patient will complaint supervisor when ready. documented in this encounter Plan of Treatment Not on file documented as of this encounter Visit Diagnoses Not on filedocumented in this encounter Care Teams Corporate Safety Director Relationship Specialty Start Date End Date Tamara Neal MD [address] [place] [phone] PCP - General 09/13/08 03/18/13 documented as of this encounter
--- OUTSIDE RECORDS SUMMARY | 2024-02-17 18:45 | XMS_ITS | Encounter Summary ---
Author Organization [facility] Address [address] [place] [address] Care Team Providers Care Seismic Survey Assistant Name Role Phone Tamara Neal MD Primary Care Provider + Encounter Details Date Type Department Care Team (Late st Contact Info) Description 02/07/2012 Results Only Imaging [facility] Sports Medicine Program - [address] [address] Alberto Moffett MD [address] [place] [phone] Social History Tobacco Use Types [...] on filedocumented in this encounter Care Teams Seismic Survey Assistant Relationship Specialty Start Date End Date Tamara Neal MD [address] [place] [phone] PCP - General 09/13/08 03/18/13 documented as of this encounter
--- OUTSIDE RECORDS SUMMARY | 2024-02-17 18:45 | XMS_ITS | Encounter Summary ---
Author Organization [facility] Address [address] [place] [address] Care Team Providers Care Supervisor Capacitor Processing Name Role Phone Tamara Neal MD Primary Care Provider + Annette Sidhu APRN Primary Care Provider + [phone] Jossie Patton APRN Primary Care Provider + [phone] Stephanie Santos MD Primary Care Provider [phone] Encounter Details Date Type Department Care Team (Late st Contact Info) Description 10/30/2011 Documentation Visit [facility] Rehabilitation Therapy - Medical Office Building [address] [place] [address] Marina Soni, PhD Social History Tobacco Use [...] as of this encounter Care Teams Supervisor Capacitor Processing Relationship Specialty Start Date End Date Tamara Neal MD [address] [place] [phone] PCP - General 09/13/08 03/18/13 Annette Sidhu APRN [address] [place] [phone] PCP - General 03/19/13 07/06/19 Jossie Patton APRN [address] [place] [phone] PCP - General 07/07/19 11/10/23 Stephanie Santos MD [address] [place] [phone] PCP - General Family Medicine - Primary Care 11/11/23 documented as of this encounter
--- OUTSIDE RECORDS SUMMARY | 2024-02-17 18:45 | XMS_ITS | Encounter Summary ---
Author Organization [facility] Address [address] [place] [address] Care Team Providers Care Devulcanizer Operator Name Role Phone Tamara Neal MD Primary Care Provider + Reason for Visit * Reason Onset Date Comments Appointment Related 11/01/2011 Encounter Details Date Type Department Care Team (Late Contact Info) Description 11/01/2011 Telephone [facility] Rehabilitation Therapy - Medical Office Building [address] [place], [place] [phone] Marina Soni, PhD Appointment Related Social History [...] 0801 EDT Rehabilitation [facility] MEDICAL OFFICE BUILDING ([facility]) 2 [facility] [address] Phone: [phone] Fax: [phone] The patient called to cancel today's appointment due to illness. Suly Wilkins 11/01/2011 8:01 documented in this encounter Plan of Treatment Not on file documented as of this encounter Visit Diagnoses Not on filedocumented in this encounter Care Teams Devulcanizer Operator Relationship Specialty Start Date End Date Tamara Neal MD [address] [place] [phone] PCP - General 09/13/08 03/18/13 documented as of this encounter
--- OUTSIDE RECORDS SUMMARY | 2024-02-17 18:45 | XMS_ITS | Encounter Summary ---
Author Organization [facility] Address [address] [place] [address] Care Team Providers Care Computer Support Specialist Name Role Phone Tamara Neal MD Primary Care Provider + Reason for Referral * Consult, Test and Treat (Routine/Next Available) - Closed Specialty Diagnoses / Procedures Referred By Contrachell t Referred To Contact Rehab Therapies Diagnoses Left hip pain Tamara Neal MD [address] [place] [phone] Referral ID Status Reason Start Date Expiration Date V isits Requested Visits Authorized [id number] Closed Specialty Services Required 02/26/2012 1 1 Question Answer Reason for Request: left hip pain; going to [facility] PT, 3-4 weks s/p left labral tear repair Reason for Visit * Reason Onset Date Comments Hip Pain 02/26/2012 Encounter Details Date Type Department Care Team (Late st Contact Info) Description 02/26/[address] [address] Tamara Neal MD [address] [place] [phone] Hip Pain Social History Tobacco Use [...] hip to her referral for PT at [facility]. documented in this encounter Plan of Treatment Scheduled Referrals Name Type Priority Associated Diagnoses Orde r Schedule AMB CONSULT PHYSICAL THERAPY Outpatient Referral Routine Left hip pain Ordered: 02/26/2012 documented as of this encounter Visit Diagnoses Diagnosis Left hip pain- Primary Pain in joint, pelvic region and thigh documented in this encounter Care Teams Computer Support Specialist Relationship Specialty Start Date End Date Tamara Neal MD [address] [place] [phone] PCP - General 09/13/08 03/18/13 documented as of this encounter
--- OUTSIDE RECORDS SUMMARY | 2024-02-17 18:45 | XMS_ITS | Encounter Summary ---
Author Organization [facility] Address [address] [place] [address] Care Team Providers Care Brake Tester Name Role Phone Tamara Neal MD Primary Care Provider + Reason for Visit * Reason Comments Medication Management Hip Pain Left Shoulder Pain Left Neck Pain Back Pain Upper Encounter Details Date Type Department Care Team (Late st Contact Info) Description 03/04/2012 10:30 EST Office Visit [facility] Medicine [address] [address] Tamara Neal MD [address] [place] [phone] Chronic pain syndrome; Need for influenza vaccination; [...] symptoms Had NEG C spine XRAYs at [facility] Patient Active Problem List Diagnoses ??? Routine [...] fluticasone (FLONASE) 50 mcg/Actuation nasal spray 1 [place] by Nasal route daily. 1 Bottle 2 [...] type (lateral) NEG cerv spine XRAY at [facility] Modalities through PT should help Other Orders [...] 03/04/2012 documented in this encounter Care Teams Brake Tester Relationship Specialty Start Date End Date Tamara Neal MD [address] [place] [phone] PCP - General 09/13/08 03/18/13 documented as of this encounter
--- OUTSIDE RECORDS SUMMARY | 2024-02-17 18:45 | XMS_ITS | Encounter Summary ---
Author Organization [facility] Address [address] [place] [address] Care Team Providers Care Associate Professor Plant Pathology Name Role Phone Tamara Neal MD Primary Care Provider + Reason for Visit * Reason Onset Date Comments Other 10/17/2011 Encounter Details Date Type Department Care Team (Late st Contact Info) Description 10/17/2011 Telephone [facility] Family Medicine - [address] [phone] Tamara Neal MD [address] [place] [address] [phone] Other Social History Tobacco Use Types Packs/Day [...] Dr. Neal. W/C contact Mohini Macias ph [phone] Chemist AssistantMgr Regalado [phone] documented in this encounter Plan of Treatment Not on file documented as of this encounter Visit Diagnoses Not on filedocumented in this encounter Care Teams Associate Professor Plant Pathology Relationship Specialty Start Date End Date Tamara Neal MD [address] [place] [phone] PCP - General 09/13/08 03/18/13 documented as of this encounter
--- OUTSIDE RECORDS SUMMARY | 2024-02-17 18:45 | XMS_ITS | Encounter Summary ---
Author Organization [facility] Address [address] [place] [address] Care Team Providers Care Electronic Warfare Technician Name Role Phone Tamara Neal MD Primary Care Provider + Reason for Visit * Reason Comments Pre-op Exam Laparoscope of lef t hip by Dr. Moffett on 01/11/12 at the [facility] Sinus Problems x 1 wk;all in my lupis st now Encounter Details Date Type Department Care Team (Latest Contact Info) Description 01/07/2012 10:30 EDT Office Visit [facility] Medicine [address] [address] Nae Naidu MD [address] [place] [phone] Cough; Wheezing-associated respiratory infection; Type [...] a LEFT hip arthroscopy on 12/1411 at [facility].Current Complaints: +having left hip pain and numbness [...] fluticasone (FLONASE) 50 mcg/Actuation nasal spray 1 [place] by Nasal route daily. 1 Bottle 2 [...] documented as of this encounter Care Teams Electronic Warfare Technician Relationship Specialty Start Date End Date Tamara Neal MD [address] [place] [phone] PCP - General 09/13/08 03/18/13 documented as of this encounter
--- OUTSIDE RECORDS SUMMARY | 2024-02-17 18:45 | XMS_ITS | Encounter Summary ---
Author Organization [facility] Address [address] [place] [address] Care Team Providers Care Waxing Machine Operator Name Role Phone Tamara Neal MD Primary Care Provider + Reason for Visit * Reason Onset Date Comments Hip Pain 10/23/2011 Encounter Details Date Type Department Care Team (Late st Contact Info) Description 10/23/2011 Telephone [facility] Family Medicine - [address] [address] Tamara Neal MD [address] [place] [address] [phone] Hip Pain Social History Tobacco Use Types [...] if Dr. Neal has talked with her wrapper caser to see if she is all set [...] on filedocumented in this encounter Care Teams Waxing Machine Operator Relationship Specialty Start Date End Date Tamara Neal MD [address] [place] [phone] PCP - General 09/13/08 03/18/13 documented as of this encounter
--- OUTSIDE RECORDS SUMMARY | 2024-02-17 18:45 | XMS_ITS | Encounter Summary ---
Author Organization [facility] Address [address] [place] [address] Care Team Providers Care General Dentist Name Role Phone Tamara Neal MD Primary Care Provider + Reason for Referral * Consult, Test and Treat (Routine/Next Available) - Closed Specialty Diagnoses / Procedures Referred By Contrachell ashton Referred To Contact Rehab Therapies Diagnoses Neck pain Shoulder pain Marcin Chacko PA-C [address] [place] [phone] Referral ID Status Reason Start Date Expiration Date V isits Requested Visits Authorized [id number] Closed Specialty Services Required 10/11/2011 1 1 [...] Info) Description 10/11/2011 15:00 EDT Office Visit [facility] Spine Program - [address] [place] [address] Marcin Chacko PA-C [address] [place] [phone] Neck pain; Shoulder pain Discharge Disposition: [...] fluticasone (FLONASE) 50 mcg/Actuation nasal spray 1 [place] by Nasal route daily. 1 Bottle 2 [...] I also received a letter from her manager case management asking a number of questions. 1. Was [...] region documented in this encounter Care Teams General Dentist Relationship Specialty Start Date End Date Tamara Neal MD [address] [place] [phone] PCP - General 09/13/08 03/18/13 documented as of this encounter
--- OUTSIDE RECORDS SUMMARY | 2024-02-17 18:45 | XMS_ITS | Encounter Summary ---
Author Organization [facility] Address [address] [place] [address] Care Team Providers Care Automobile Radiator Mechanic Name Role Phone Tamara Neal MD Primary Care Provider + Reason for Referral * Consult (Routine/Next Available) - Closed Specialty Diagnoses / Procedures Referred By Savannah ashton Referred To Contact Psychology Diagnoses Depression Tamara Neal MD [address] [place] [phone] Referral ID Status Reason Start Date Expiration Date V isits Requested Visits Authorized [id number] Closed Specialty Services Required 10/04/2011 1 1 Scheduling Instructions Patient already has appointment with Marina Soni on 10/10/11 at 2:00. Question Answer Reason for Request: depression Reason for Visit * Reason Onset Date Comments Referral Request 10/04/2011 Encounter Details Date Type Department Care Team (Late st Contact Info) Description 10/04/2011 Telephone [facility] Family Medicine [address] [address] Tamara Neal MD [address] [place] [phone] Referral Request Social History Tobacco Use [...] to see psychologist Sandra Soni at the [facility] 6.13.12 for depression and would like referralplaced. documented in this encounter Plan of Treatment Scheduled Referrals Name Type Priority Associated Diagnoses Order Schedule AMB CONSULT PSYCHOLOGY Outpatient Referral Routine Depression Ordered: 10/04/2011 documented as of this encounter Visit Diagnoses Diagnosis Depression- Primary Depressive disorder, not elsewhere classified documented in this encounter Care Teams Automobile Radiator Mechanic Relationship Specialty Start Date End Date Tamara Neal MD [address] [place] [phone] PCP - General 09/13/08 03/18/13 documented as of this encounter
--- OUTSIDE RECORDS SUMMARY | 2024-02-17 18:45 | XMS_ITS | Encounter Summary ---
Author Organization [facility] Address [address] [place] [address] Care Team Providers Care Drying Machine Operator Package Yarns Name Role Phone Tamara Neal MD Primary Care Provider + Reason for Visit * Reason Comments Cough f/u Encounter Details Date Type Department Care Team (Late st Contact Info) Description 01/09/2012 12:45 EDT Office Visit [facility] Family Medicine [address] [phone] Tamara Neal MD [address] [place] [address] [phone] Bronchitis, acute (Primary Dx) Discharge Disposition: Auto [...] documented as of this encounter Care Teams Drying Machine Operator Package Yarns Relationship Specialty Start Date End Date Tamara Neal MD [address] [place] [phone] PCP - General 09/13/08 03/18/13 documented as of this encounter
--- OUTSIDE RECORDS SUMMARY | 2024-02-17 18:45 | XMS_ITS | Encounter Summary ---
Author Organization [facility] Address [address] [place] [address] Care Team Providers Care River Rafting Guide Name Role Phone Tamara Neal MD Primary Care Provider + Reason for Visit * Reason Comments Pain Guzman is here for a follow-up regarding her left hip pain and medication management Encounter Details Date Type Department Care Team (Late st Contact Info) Description 02/05/2012 15:15 EDT Office Visit [address] [address] Tamara Neal MD [address] [place] [phone] Chronic pain syndrome (Primary Dx); Left hip [...] Notes * Tamara Neal MD - 02/05/2012 4702 EDT Subjective: Patient ID: Guzman Jean is [...] fluticasone (FLONASE) 50 mcg/Actuation nasal spray 1 [place] by Nasal route daily. 1 Bottle 2 [...] thigh documented in this encounter Care Teams River Rafting Guide Relationship Specialty Start Date End Date Tamara Neal MD [address] [place] [phone] PCP - General 09/13/08 03/18/13 documented as of this encounter
--- OUTSIDE RECORDS SUMMARY | 2024-02-17 18:45 | XMS_ITS | Encounter Summary ---
Author Organization [facility] Address [address] [place] [address] Care Team Providers Care Dry Roaster Name Role Phone Tamara Neal MD Primary Care Provider + Reason for Referral * Consult, Test and Treat (Routine/Next Available) - Closed Specialty Diagnoses / Procedures [facility] Referred To Contact Rehab Therapies Diagnoses Hip pain Alberto Moffett MD [address] [place] [phone] [facility] Rehab Therapy [address] [place] [phone] Referral ID Status Reason Start Date Expiration Date V isits Requested Visits Authorized [id number] Closed Specialty Services Required 02/08/2012 1 1 [...] st Contact Info) Description 02/08/2012 Orders Only [facility] Sports Medicine Program - [address] [place] [address] Alberto Moffett MD [address] [place] [phone] Hip pain (Primary Dx) Social [...] thigh documented in this encounter Care Teams Dry Roaster Relationship Specialty Start Date End Date Tamara Neal MD [address] [place] [phone] PCP - General 09/13/08 03/18/13 documented as of this encounter
--- OUTSIDE RECORDS SUMMARY | 2024-02-17 18:45 | XMS_ITS | Encounter Summary ---
Author Organization [facility] Address [address] [place] [address] Care Team Providers Care Urban Planner Name Role Phone Tamara Neal MD Primary Care Provider + Reason for Visit * Reason Onset Date Comments Other 01/09/2012 Surgery postpone d Encounter Details Date Type Department Care Team (Late st Contact Info) Description 01/09/2012 Telephone [facility] Sports Medicine Program [place] [address] Aleah Mak, LEARNING DISABILITIES RESOURCE TEACHER [address] [place] [address] Other (Surgery postponed) Social History Tobacco Use [...] on filedocumented in this encounter Care Teams Urban Planner Relationship Specialty Start Date End Date Tamara Neal MD [address] [place] [phone] PCP - General 09/13/08 03/18/13 documented as of this encounter
--- OUTSIDE RECORDS SUMMARY | 2024-02-17 18:45 | XMS_ITS | Encounter Summary ---
Author Organization [facility] Address [address] [place] [address] Care Team Providers Care Attendance Clerk Name Role Phone Tamara Neal MD Primary Care Provider + Reason for Visit * Reason Onset Date Comments Appointment Related 02/26/2012 Encounter Details Date Type Department Care Team (Late st Contact Info) Description 02/26/2012 Telephone [facility] Rehabilitation Therapy - [address] [phone] Naima Rodney, PT Appointment Related Social History [...] on filedocumented in this encounter Care Teams Attendance Clerk Relationship Specialty Start Date End Date Tamara Neal MD [address] [place] [phone] PCP - General 09/13/08 03/18/13 documented as of this encounter
--- OUTSIDE RECORDS SUMMARY | 2024-02-17 18:45 | XMS_ITS | Encounter Summary ---
Author Organization [facility] Address [address] [place] [address] Care Team Providers Care Personnel Associate Name Role Phone Tamara Neal MD Primary Care Provider + Reason for Visit * Reason Onset Date Comments Medication Problem 03/04/2012 Encounter Details Date Type Department Care Team (Late st Contact Info) Description 03/04/2012 Refill [facility] Family Medicine - [address] [phone] Tamara Neal MD [address] [place] [address] [phone] Medication Problem Social History Tobacco Use Types [...] 2 Rx each for 2 weeks Does [facility] expect to get the 8 mg tabs in before her next Rx * Telephone Encounter - Nadine Stewart - 03/04/2012 1409 EST Please disregard, patient went to different pharmacy * Telephone Encounter - Nadine Stewart - 03/04/2012 1303 EST Pharmacist from [facility] called said that they do not have the 8 mg diludid that you prescribed. Can the patient get the 4 mg? If so will need new script, patient will need to apple picker. documented in this encounter Plan of Treatment Not on file documented as of this encounter Visit Diagnoses Not on filedocumented in this encounter Care Teams Personnel Associate Relationship Specialty Start Date End Date Tamara Neal MD [address] [place] [phone] PCP - General 09/13/08 03/18/13 documented as of this encounter
--- OUTSIDE RECORDS SUMMARY | 2024-02-17 18:45 | XMS_ITS | Encounter Summary ---
Author Organization [facility] Address [address] [place] [address] Care Team Providers Care Seismograph Computer Name Role Phone Tamara Neal MD Primary Care Provider + Reason for Visit * Reason Onset Date Comments Follow-up 02/25/2012 [facility] 02/24/12 for headache Encounter Details Date Type Department Care Team (Late st Contact Info) Description 02/25/[address] [address] Radha Santiago LPN Follow-up ([facility] 02/24/12 for headache) Social History [...] on filedocumented in this encounter Care Teams Seismograph Computer Relationship Specialty Start Date End Date Tamara Neal MD [address] [place] [phone] PCP - General 09/13/08 03/18/13 documented as of this encounter
--- OUTSIDE RECORDS SUMMARY | 2024-02-17 18:45 | XMS_ITS | Encounter Summary ---
Author Organization [facility] Address [address] [place] [address] Care Team Providers Care Plow Shaker Name Role Phone Tamara Neal MD Primary Care Provider + Reason for Visit * Reason Onset Date Comments Medications Refill 12/03/2011 Encounter Details Date Type Department Care Team (Late st Contact Info) Description 12/03/2011 Refill [facility] Family Medicine [address] [address] Tamara Neal MD [address] [place] [phone] Medications Refill Social History Tobacco Use Types [...] documented as of this encounter Care Teams Plow Shaker Relationship Specialty Start Date End Date Tamara Neal MD [address] [place] [phone] PCP - General 09/13/08 03/18/13 documented as of this encounter
--- OUTSIDE RECORDS SUMMARY | 2024-02-17 18:45 | XMS_ITS | Encounter Summary ---
Author Organization [facility] Address [address] [place] [address] Care Team Providers Care Tools And Parts Attendant Name Role Phone Tamara Neal MD Primary Care Provider + Reason for Visit * Reason Comments Hip Pain follow up Encounter Details Date Type Department Care Team (Late st Contact Info) Description 12/25/2011 16:30 EDT Office Visit [facility] Family Medicine [address] [phone] Tamara Neal MD [address] [place] [phone] Left hip pain; LBP (low back pain); [...] fluticasone (FLONASE) 50 mcg/Actuation nasal spray 1 [place] by Nasal route daily. 1 Bottle 2 [...] documented as of this encounter Care Teams Tools And Parts Attendant Relationship Specialty Start Date End Date Tamara Neal MD [address] [place] [phone] PCP - General 09/13/08 03/18/13 documented as of this encounter
--- OUTSIDE RECORDS SUMMARY | 2024-02-17 18:45 | XMS_ITS | Encounter Summary ---
Author Organization [facility] Address [address] [place] [address] Care Team Providers Care Faculty Neuropsychologist Name Role Phone Tamara Neal MD Primary Care Provider + Reason for Visit * Reason Onset Date Comments Appointment Related 10/17/2011 Encounter Details Date Type Department Care Team (Late st Contact Info) Description 10/17/2011 Telephone [facility] Rehabilitation Therapy - Medical Office Building [address] [place] [phone] Marcin Chacko PA-C [address] [place] [phone] Appointment Related Social History Tobacco [...] for 10/26/11 at 8 am. Sabine @ [employer] has been informed of this appointment date and time. * Telephone Encounter - Suly Wilkins - 10/17/2011 0917 EDT I have faxed a letter to Sabine Acuña [facility], asking for authorization for a FCE. documented in this encounter Plan of Treatment Not on file documented as of this encounter Visit Diagnoses Not on filedocumented in this encounter Care Teams Faculty Neuropsychologist Relationship Specialty Start Date End Date Tamara Neal MD [address] [place] [phone] PCP - General 09/13/08 03/18/13 documented as of this encounter
--- OUTSIDE RECORDS SUMMARY | 2024-02-17 18:45 | XMS_ITS | Encounter Summary ---
Author Organization [facility] Address [address] [place] [address] Care Team Providers Care Hand Rug Cleaner Name Role Phone Tamara Neal MD Primary Care Provider + Encounter Details Date Type Department Care Team (Latest Contact Info) Description 02/08/2012 10:29 EDT - 02/08/2012 16:28 EDT Hospital Encounter [facility] Perioperative Services - [address] [phone] Michael Moffett MD [address] [place] [phone] Pain in joint, pelvic region and [...] MD [facility] Sports Medicine [address] [place] [address] WHAT TO EXPECT AFTER ARTHROSCOPIC HIP SURGERY [...] 50 mcg/Actuation nasal sprayIndications:Pelon rgic rhinitis 1 [place] by Nasal route daily. 1 Bottle 2 [...] so such changes are documented below MICHAEL MOFFTET MD 02/08/2012 11:40 Source Note - Tamara Neal MD - 02/05/2012 15:52 EDT Subjective: [...] fluticasone (FLONASE) 50 mcg/Actuation nasal spray 1 [place] by Nasal route daily. 1 Bottle 2 [...] documented in this encounter Procedure Notes * NURSING SERVICE ADMINISTRATOR, SCAN 2 - 02/13/20121940 EDTAssociated Order(s): IMPLANT RECORD - SCANNED * NURSING SERVICE ADMINISTRATOR, SCAN 2 - 02/13/20121940 EDTAssociated Order(s): ECG REPORT - SCANNED documented in this encounter OR Notes * OR PreOp - NURSING SERVICE ADMINISTRATOR, SCAN 2 - 02/13/20121940 EDT * OR Surgeon - Michael Moffett MD - 02/09/2012 0801 EDT OPERATIVE REPORT SERVICE DATE: 02/08/2012 SURGEON: Michael Moffett MD GARDENER: Hussain Castro MD PREOPERATIVE DIAGNOSIS: Left hip [...] 20 PM / Michael Moffett MD Confirmation: [id number] Dictation ID: [id number] cc:Hussain Neal MD * Anesthesia Procedure Notes - NURSING SERVICE ADMINISTRATOR, SCAN 2 - 02/08/2012 1416 EDT * OR PreOp - NURSING SERVICE ADMINISTRATOR, SCAN 2 - 02/08/2012 1411 EDT * Anesthesia Preprocedure Evaluation - NURSING SERVICE ADMINISTRATOR, SCAN 2 - 02/08/2012 1213 EDT documented in this encounter Miscellaneous Notes * Scanned Note-Null - NURSING SERVICE ADMINISTRATOR, SCAN 2 - 02/13/2012 1941 EDT * Scanned Note-Null - NURSING SERVICE ADMINISTRATOR, SCAN 2 - 02/13/2012 1941 EDT * [...] EDT Narrative 02/13/2012 21:14 EDT Procedure Note NURSING SERVICE ADMINISTRATOR, SCAN 2 - 02/13/2012 19:41 EDT Scan 2 Hoop Driving Machine Operator Helper PROCEDURE/MINOR OSMAR GICAL ORDERABLES * IMPLANT RECORD - SCANNED (02/13/2012 19:41 EDT) 02/13/2012 19:4 1 EDT Narrative 02/13/2012 21:14 EDT Procedure Note NURSING SERVICE ADMINISTRATOR, SCAN 2 - 02/13/2012 19:41 EDT Scan 2 Hoop Driving Machine Operator Helper PROCEDURE/MINOR OSMAR GICAL ORDERABLES * (ABNORMAL) GLUCOSE, GLUCOMETER (02/08/2012 14:30 EDT) Glucose, Fingerstick 186(H) 70 - 100 mg/dl [facility] [place] [id number] [facility] Comment:Test Performed by Nu rsing Services 02/08/2012 14:3 0 EDT 02/08/2012 14:31 EDT Michael Moffett MD CHEMISTRY & BLO OD GAS ORDERABLES Performing Organization Address [facility] de Phone Number [facility] [address] [place] [address] * [place] UP TO 1 HOUR (02/08/2012 14:00 EDT) Anatomical Region Laterality Modality Other 02/08/2012 14:0 0 EDT Narrative 02/08/2012 14:00 EDT Non Reportable Exam Procedure Note 02/08/2012 Non Reportable Exam Michael Moffett MD IMG FLUOROSCOPY ORDERABLES * (ABNORMAL) GLUCOSE, GLUCOMETER (02/08/2012 11:15 EDT) Glucose, Fingerstick 207(H) 70 - 100 mg/dl [facility] [place] [id number] [facility] Comment:Test Performed by Nu rsing Services 02/08/2012 11:1 5 EDT 02/08/2012 11:21 EDT Michael Moffett MD CHEMISTRY & BLO OD GAS ORDERABLES Performing Organization Address [facility] Co de Phone Number [facility] [address] [place] [address] documented in this encounter Visit Diagnoses Diagnosis [...] 012 documented in this encounter Care Teams Hand Rug Cleaner Relationship Specialty Start Date End Date Tamara Neal MD [address] [place] [phone] PCP - General 09/13/08 03/18/13 documented as of this encounter
--- OUTSIDE RECORDS SUMMARY | 2024-02-17 18:45 | XMS_ITS | Encounter Summary ---
Author Organization [facility] Address [address] [place] [address] Care Team Providers Care Personnel Research Scientist Name Role Phone Tamara Neal MD Primary Care Provider + Encounter Details Date Type Department Care Team (Late st Contact Info) Description 10/16/2011 Abstract [facility] Hand & Upper Extremity Program - [address] [place] [address] Joni Lau MD [address] [place] [phone] Social History Tobacco Use Types Packs/Day Years [...] filedocumented in this encounter Care Teams Personnel Research Scientist Relationship Specialty Start Date End Date Tamara Neal MD [address] [place] [phone] PCP - General 09/13/08 03/18/13 documented as of this encounter
--- OUTSIDE RECORDS SUMMARY | 2024-02-17 18:45 | XMS_ITS | Encounter Summary ---
Author Organization [facility] Address [address] [place] [address] Care Team Providers Care Flight Information Expediter Name Role Phone Tamara Neal MD Primary Care Provider + Reason for Visit * Reason Onset Date Comments Procedure 01/30/2012 Encounter Details Date Type Department Care Team (Latest Contact Info) Description 01/30/2012 Pre-Procedure Orders Encounter [facility] Sports Medicine Program [place] [address] [place] [address] Cindy Ferrera, RN Pain in joint, pelvic [...] thigh documented in this encounter Care Teams Flight Information Expediter Relationship Specialty Start Date End Date Tamara Neal MD [address] [place] [phone] PCP - General 09/13/08 03/18/13 documented as of this encounter
--- OUTSIDE RECORDS SUMMARY | 2024-02-17 18:46 | XMS_ITS | Encounter Summary ---
Author Organization [facility] Address [address] [place] [address] Care Team Providers Care Meter Maker Name Role Phone Tamara Neal MD Primary Care Provider + Reason for Visit * Reason Onset Date Comments Results 08/08/2011 Encounter Details Date Type Department Care Team (Late st Contact Info) Description 08/08/2011 Telephone [facility] [address] [phone] Tamara Neal MD [address] [place] [phone] Results Social History Tobacco Use Types Packs/Day [...] like the results and be able to supervisor picking crew a copy of them to take them to Dr Esteban who is the ordering doctor. documented in this encounter Plan of Treatment Not on file documented as of this encounter Visit Diagnoses Not on filedocumented in this encounter Care Teams Meter Maker Relationship Specialty Start Date End Date Tamara Neal MD [address] [place] [phone] PCP - General 09/13/08 03/18/13 documented as of this encounter
--- OUTSIDE RECORDS SUMMARY | 2024-02-17 18:46 | XMS_ITS | Encounter Summary ---
Author Organization [facility] Address [address] [place] [address] Care Team Providers Care Heatset Winder Operator Name Role Phone Tamara Neal MD Primary Care Provider + Encounter Details Date Type Department Care Team (Late st Contact Info) Description 07/10/2011 Results Only Imaging [facility] [phone] Haim Esteban, DO [address] [place] [phone] Social History Tobacco Use Types Packs/Day Years [...] on filedocumented in this encounter Care Teams Heatset Winder Operator Relationship Specialty Start Date End Date Tamara Neal MD [address] [place] [phone] PCP - General 09/13/08 03/18/13 documented as of this encounter
--- OUTSIDE RECORDS SUMMARY | 2024-02-17 18:46 | XMS_ITS | Encounter Summary ---
Author Organization [facility] Address [address] [place] [address] Care Team Providers Care Borough Coordinator Name Role Phone Tamara Neal MD Primary Care Provider + Reason for Visit * Reason Onset Date Comments Medications Refill 08/14/2011 Encounter Details Date Type Department Care Team (Late st Contact Info) Description 08/14/2011 Refill [facility] [address] [address] Tamara Neal MD [address] [place] [phone] Medications Refill Social History Tobacco Use Types [...] Encounter - Latesha Naqvi LPN - 08/14/2011 0750 EDT Please sign rx if you feel [...] documented as of this encounter Care Teams Borough Coordinator Relationship Specialty Start Date End Date Tamara Neal MD [address] [place] [phone] PCP - General 09/13/08 03/18/13 documented as of this encounter
--- OUTSIDE RECORDS SUMMARY | 2024-02-17 18:46 | XMS_ITS | Encounter Summary ---
Author Organization [facility] Address [address] [place] [address] Care Team Providers Care Machine Shorthand Reporter Name Role Phone Tamara Neal MD Primary Care Provider + Encounter Details Date Type Department Care Team (Late st Contact Info) Description 08/15/2011 Abstract [facility] Sports Medicine Program - [address] [address] Haim Caldwell MD [address] [place] [phone] Social History Tobacco Use Types [...] on filedocumented in this encounter Care Teams Machine Shorthand Reporter Relationship Specialty Start Date End Date Tamara Neal MD [address] [place] [phone] PCP - General 09/13/08 03/18/13 documented as of this encounter
--- OUTSIDE RECORDS SUMMARY | 2024-02-17 18:46 | XMS_ITS | Encounter Summary ---
Author Organization [facility] Address [address] [place] [address] Care Team Providers Care Chucking And Boring Machine Operator Name Role Phone Tamara Neal MD Primary Care Provider + Encounter Details Date Type Department Care Team (Latest Contact Info) Description 09/03/2011 7:37 EDT - 09/03/2011 23:59 EDT Hospital Encounter [facility] [address] [place] [phone] Tamara Neal MD [address] [place] [phone] Discharge Disposition: Home or Self Care Social [...] 50 mcg/Actuation nasal sprayIndications:Pelon rgic rhinitis 1 [place] by Nasal route daily. 1 Bottle 2 [...] on filedocumented in this encounter Care Teams Chucking And Boring Machine Operator Relationship Specialty Start Date End Date Tamara Neal MD [address] [place] [phone] PCP - General 09/13/08 03/18/13 documented as of this encounter
--- OUTSIDE RECORDS SUMMARY | 2024-02-17 18:46 | XMS_ITS | Encounter Summary ---
Author Organization [facility] Address [address] [place] [address] Care Team Providers Care Developer Analyst Name Role Phone Tamara Neal MD Primary Care Provider + Reason for Visit * Reason Comments Shoulder Injury left shoudler doi 2. 13.12 Encounter Details Date Type Department Care Team (Late st Contact Info) Description 08/10/2011 13:00 EDT Office Visit [facility] Sports Medicine Program - [address] [address] Unknown, Provider, Haim Caldwell MD [address] [place] [phone] Subacromial bursitis; Rotator cuff tendinitis; Brachial plexus [...] 08/10/2011 1341 EDT BUPIVACAINE LOT # [id number] [facility] # [id number] EXP DATE 10.27.2012 EXERCISER-hospira XYLOCAINE LOT # [id number] [facility] # [id number] EXP DATE 11.27.2012 EXERCISER-AYALA kenalog 40 mg LOT # [id number] [facility] # [id number] EXP DATE EXERCISER- [employer] analia Steele * Haim Caldwell MD - [...] region. She works at [employer] at an [employer]. She went to [facility] for the injury. Diagnosed with neck and shoulder strain. She has been going to PT at the [facility]. She has gone twice a [...] fluticasone (FLONASE) 50 mcg/Actuation nasal spray 1 [place] by Nasal route daily. 1 Bottle 2 [...] plexus documented in this encounter Care Teams Developer Analyst Relationship Specialty Start Date End Date Tamara Neal MD [address] [place] [phone] PCP - General 09/13/08 03/18/13 documented as of this encounter
--- OUTSIDE RECORDS SUMMARY | 2024-02-17 18:46 | XMS_ITS | Encounter Summary ---
Author Organization [facility] Address [address] [place] [address] Care Team Providers Care Lead Qa Analyst Name Role Phone Tamara Neal MD Primary Care Provider + Encounter Details Date Type Department Care Team (Late st Contact Info) Description 07/10/2011 Results Only Imaging [facility] [phone] Haim Esteban, DO [address] [place] [phone] Social History Tobacco Use Types Packs/Day Years [...] complication. Procedure performed by Maria Eugenia Quach, staffing assistant. Dr. Dawkins was present for the penaloza [...] complication. Procedure performed by Maria Eugenia Quach, staffing assistant. Dr. Dawkins was present for the penaloza and critical portions of the procedure. Impression: 1. Successful fluoroscopically guided injection of a dilute gadolinium solution into the left glenohumeral joint space. Left shoulder MR arthrogram to follow. Haim Esteban DO IMG FLUOROSCOPY ORDERABLES documented in this encounter Visit Diagnoses Not on filedocumented in this encounter Care Teams Lead Qa Analyst Relationship Specialty Start Date End Date Tamara Neal MD [address] [place] [phone] PCP - General 09/13/08 03/18/13 documented as of this encounter
--- OUTSIDE RECORDS SUMMARY | 2024-02-17 18:46 | XMS_ITS | Encounter Summary ---
Author Organization [facility] Address [address] [place] [address] Care Team Providers Care Handle Assembler Name Role Phone Tamara Neal MD Primary Care Provider + Reason for Visit * Reason Onset Date Comments Appointment Related 07/30/2011 Encounter Details Date Type Department Care Team (Late st Contact Info) Description 07/30/2011 Telephone [facility] Rehabilitation Therapy - Medical Office Building [address] [place], [place] [phone] Heena Sin OT Appointment Related Social History [...] 0849 EDT Rehabilitation Therapies MEDICAL OFFICE BUILDING ([facility]) [facility] [address] Phone: [phone] Fax: [phone] The patient cancelled today's occupational therapy appointment. The patient's physical therapy appointment was cancelled today and patient states she lives too far away to come in for only the Occupational Therapy appointment. Liseth Hankins 07/30/2011 8:49 documented in this encounter Plan of Treatment Not on file documented as of this encounter Visit Diagnoses Not on filedocumented in this encounter Care Teams Handle Assembler Relationship Specialty Start Date End Date Tamara Neal MD [address] [place] [phone] PCP - General 09/13/08 03/18/13 documented as of this encounter
--- OUTSIDE RECORDS SUMMARY | 2024-02-17 18:46 | XMS_ITS | Encounter Summary ---
Author Organization [facility] Address [address] [place] [address] Care Team Providers Care Wafer Production Worker Name Role Phone Tamara Neal MD Primary Care Provider + Encounter Details Date Type Department Care Team (Latest Contact Info) Description 07/02/2011 12:12 EST - 07/02/2011 23:59 [facility] Hospital Encounter [facility] [address] [place] [phone] Tamara Neal MD [address] [place] [phone] Discharge Disposition: Home or Self Care Social [...] 50 mcg/Actuation nasal sprayIndications:Pelon rgic rhinitis 1 [place] by Nasal route daily. 1 Bottle 2 [...] on filedocumented in this encounter Care Teams Wafer Production Worker Relationship Specialty Start Date End Date Tamara Neal MD [address] [place] [phone] PCP - General 09/13/08 03/18/13 documented as of this encounter
--- OUTSIDE RECORDS SUMMARY | 2024-02-17 18:46 | XMS_ITS | Encounter Summary ---
Author Organization [facility] Address [address] [place] [address] Care Team Providers Care Speech And Hearing Clinic Director Name Role Phone Madelyn Reina MD Primary Care Provider + Reason for Visit * Reason Onset Date Comments Drug Screen 06/13/2011 Encounter Details Date Type Department Care Team (Late st Contact Info) Description 06/13/2011 Telephone [facility] Family Medicine [address] [address] Humera Guerrero RN Drug Screen Social History [...] Encounter - Humera Guerrero RN - 06/13/2011 08 EST Message copied by HUMERA GUERRERO on SatJun 13, 2011 0880 ------ Message from: MADELYN REINA Created: SatJun [...] on filedocumented in this encounter Care Teams Speech And Hearing Clinic Director Relationship Specialty Start Date End Date Madelyn Reina MD [address] [place] [phone] PCP - General 09/13/08 03/18/13 documented as of this encounter
--- OUTSIDE RECORDS SUMMARY | 2024-02-17 18:46 | XMS_ITS | Encounter Summary ---
Author Organization [facility] Address [address] [place] [address] Care Team Providers Care Business Continuity Consultant Name Role Phone Tamara Neal MD Primary Care Provider + Encounter Details Date Type Department Care Team (Latest Contact Info) Description 06/28/2011 13:00 EST - 06/28/2011 23:59 [facility] Hospital Encounter [facility] - Medical Office Building [phone] Tamara Neal MD [address] [place] [phone] Discharge Disposition: Home or Self Care Social [...] 50 mcg/Actuation nasal sprayIndications:Pelon rgic rhinitis 1 [place] by Nasal route daily. 1 Bottle 2 [...] or Self [facility] documented in this encounter Plan of Treatment Not on file documented as of this encounter Visit Diagnoses Not on filedocumented in this encounter Care Teams Business Continuity Consultant Relationship Specialty Start Date End Date Tamara Neal MD [address] [place] [phone] PCP - General 09/13/08 03/18/13 documented as of this encounter
--- OUTSIDE RECORDS SUMMARY | 2024-02-17 18:46 | XMS_ITS | Encounter Summary ---
Author Organization [facility] Address [address] [place] [address] Care Team Providers Care Training And Development Assistant Name Role Phone Tamara Neal MD Primary Care Provider + Reason for Visit * Reason Onset Date Comments Appointment Related 06/20/2011 Encounter Details Date Type Department Care Team (Late st Contact Info) Description 06/20/2011 Telephone [facility] Rehabilitation Therapy - Medical Office Building [address] [place] [phone] Haim Esteban, DO [address] [place] [phone] Appointment Related Social History Tobacco [...] Telephone Encounter - Suly Wilkins - 06/20/2011 3007 EST Here is the correct W/C information on this patient: WORKER'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; Jose Carlos Palma Case: [id number] Patient: HILDA CROWLEY W/C Carrier: Employer: W/C Ovrd: [employer] Emp Ovrd: [facility] [facility] W/C Addr L1: Emp Addr L1: W/C Addr L2: [address] Emp Addr L2: [address],State: [facility],St: [place], [place] Zip Code: [address] Emp Zip: [address] W/C Emp W/C Claim #: [id number] Emp Status Code: EMPLOYED FULL [employer] Eff Date: 06/11/2011 Signature on File?: Y Exp Date: Date Signature Received: 06/12/2011 documented in this encounter Plan of Treatment Not on file documented as of this encounter Visit Diagnoses Not on filedocumented in this encounter Care Teams Training And Development Assistant Relationship Specialty Start Date End Date Tamara Neal MD [address] [place] [phone] PCP - General 09/13/08 03/18/13 documented as of this encounter
--- OUTSIDE RECORDS SUMMARY | 2024-02-17 18:46 | XMS_ITS | Encounter Summary ---
Author Organization Health system Address [address] [place] [address] Care Team Providers Care Increment Manager Name Role Phone Tamara Neal MD Primary Care Provider + Reason for Visit * Reason Comments Shoulder Pain left shoulder, DOI Encounter Details Date Type Department Care Team (Late st Contact Info) Description 10/03/2011 14:00 EDT Office Visit [facility] Hand & Upper Extremity Program - Neema [facility] [place] [address] Joni Lau MD [address] [place] [phone] Shoulder pain, left (Primary Dx); Brachial [...] forearm circumferences are symmetric. Her Adson and Edmondson maneuvers are negative. There is slight weakness of the left hand lounge car attendant and ulnar intrinsics compared to the right, [...] - RF Job ID: SM Doc ID: [id number] Ext Doc ID: [id number] cc: MD Haim Mcwilliams MD documented in this encounter Plan of Treatment Not on file documented as of this encounter Visit Diagnoses Diagnosis Shoulder pain, left- Primary Pain in joint, shoulder region Brachial plexus dysfunction Brachial plexus lesions documented in this encounter Care Teams Increment Manager Relationship Specialty Start Date End Date Tamara Neal MD [address] [place] [phone] PCP - General 09/13/08 03/18/13 documented as of this encounter
--- OUTSIDE RECORDS SUMMARY | 2024-02-17 18:46 | XMS_ITS | Encounter Summary ---
Author Organization [facility] Address [address] [place] [address] Care Team Providers Care Billet Assembler Name Role Phone Tamara Neal MD Primary Care Provider + Encounter Details Date Type Department Care Team (Latest Contact Info) Description 08/02/2011 12:30 EDT - 08/02/2011 23:59 EDT Hospital Encounter [facility] - Medical Office Building [phone] Tamara Neal MD [address] [place] [phone] Discharge Disposition: Home or Self Care Social [...] 50 mcg/Actuation nasal sprayIndications:Pelon rgic rhinitis 1 [place] by Nasal route daily. 1 Bottle 2 [...] on filedocumented in this encounter Care Teams Billet Assembler Relationship Specialty Start Date End Date Tamara Neal MD [address] [place] [phone] PCP - General 09/13/08 03/18/13 documented as of this encounter
--- OUTSIDE RECORDS SUMMARY | 2024-02-17 18:46 | XMS_ITS | Encounter Summary ---
Author Organization [facility] Address [address] [place] [address] Care Team Providers Care Creative Intern Name Role Phone Tamara Neal MD Primary Care Provider + Reason for Visit * Reason Comments Shoulder Injury left shoulder doi 2. 12.12 Encounter Details Date Type Department Care Team (Late st Contact Info) Description 09/07/2011 11:30 EDT Office Visit [facility] Sports Medicine Program - [address] [address] Unknown, Provider, Haim Caldwell MD [address] [place] [phone] Brachial plexopathy; Rotator cuff tendinitis; Neck pain [...] region. She works at [employer] at an [employer]. She went to [facility] for the injury. Diagnosed with neck and shoulder strain. She has been going to PT at the [facility] at [facility]. She has gone twice a [...] fluticasone (FLONASE) 50 mcg/Actuation nasal spray 1 [place] by Nasal route daily. 1 Bottle 2 [...] 01/07/2012 added in this encounter Care Teams Creative Intern Relationship Specialty Start Date End Date Tamara Neal MD [address] [place] [phone] PCP - General 09/13/08 03/18/13 documented as of this encounter
--- OUTSIDE RECORDS SUMMARY | 2024-02-17 18:46 | XMS_ITS | Encounter Summary ---
Author Organization [facility] Address [address] [place] [address] Care Team Providers Care Rn Staffing Name Role Phone Tamara Neal MD Primary Care Provider + Encounter Details Date Type Department Care Team (Latest Contact Info) Description 08/28/2011 8:30 EDT - 08/28/2011 23:59 EDT Hospital Encounter [facility] - Medical Office Building [phone] Tamara Neal MD [address] [place] [phone] Discharge Disposition: Home or Self Care Social [...] 50 mcg/Actuation nasal sprayIndications:Pelon rgic rhinitis 1 [place] by Nasal route daily. 1 Bottle 2 [...] Code Departure Means Destination Home or Self Residential documented in this encounter Plan of Treatment Not on file documented as of this encounter Visit Diagnoses Not on filedocumented in this encounter Care Teams Rn Staffing Relationship Specialty Start Date End Date Tamara Neal MD [address] [place] [phone] PCP - General 09/13/08 03/18/13 documented as of this encounter
--- OUTSIDE RECORDS SUMMARY | 2024-02-17 18:46 | XMS_ITS | Encounter Summary ---
Author Organization [facility] Address [address] [place] [address] Care Team Providers Care Project Planner Name Role Phone Tamara Neal MD Primary Care Provider + Reason for Visit * Reason Onset Date Comments Hip Pain 08/20/2011 Encounter Details Date Type Department Care Team (Late st Contact Info) Description 08/20/2011 Orders Only [facility] Sports Medicine Program - [address] [address] Alberto Moffett MD [address] [place] [address] Hip pain, left (Primary Dx) [...] < 719.45-PAIN IN JOINT, PELVIC REGION AND OLFNW-XXU-8-CM Left hip pain > Comparison: Findings: A [...] < 719.45-PAIN IN JOINT, PELVIC REGION AND EEHRQ-YAH-8-CM Left hip pain > Comparison: Findings: A [...] < 719.45-PAIN IN JOINT, PELVIC REGION AND SVGGO-UFH-1-CM Left hip pain > Comparison: Findings: A [...] < 719.45-PAIN IN JOINT, PELVIC REGION AND KWEEB-JUO-1-CM Left hip pain > Comparison: Findings: A [...] thigh documented in this encounter Care Teams Project Planner Relationship Specialty Start Date End Date Tamara Neal MD [address] [place] [phone] PCP - General 09/13/08 03/18/13 documented as of this encounter
--- OUTSIDE RECORDS SUMMARY | 2024-02-17 18:46 | XMS_ITS | Encounter Summary ---
Author Organization [facility] Address [address] [place] [address] Care Team Providers Care Buckle Attacher Name Role Phone Tamara Neal MD Primary Care Provider + Reason for Visit * Reason Comments Hyperlipidemia Encounter Details Date Type Department Care Team (Late st Contact Info) Description 07/31/2011 17:00 EDT Office Visit [facility] Family Medicine [address] [address] Tamara Neal MD [address] [place] [phone] Type 2 diabetes mellitus without (mention of) [...] documented as of this encounter Care Teams Buckle Attacher Relationship Specialty Start Date End Date Tamara Neal MD [address] [place] [phone] PCP - General 09/13/08 03/18/13 documented as of this encounter
--- OUTSIDE RECORDS SUMMARY | 2024-02-17 18:46 | XMS_ITS | Encounter Summary ---
Author Organization [facility] Address [address] [place] [address] Care Team Providers Care Liberal Arts Teacher Name Role Phone Tamara Neal MD [...] Info) Description 09/20/2011 15:15 EDT Office Visit [facility] Family Medicine [address] [address] Unknown, Provider, Mecca Ball MD [address] [place] [phone] Vaccin for DTP (Primary Dx); Tattoo Social [...] fluticasone (FLONASE) 50 mcg/Actuation nasal spray 1 [place] by Nasal route daily. 1 Bottle 2 [...] to improve. Mecca Ball MD PGY 2 #[phone] Family Medicine Attestation statement for office patient [...] Diagnosis Need for prophylactic vaccination with combined fdzcyrksjl-sltprlf-izfvdtfjh (DTP) vaccine- Primary Tattoo Other dyschromia documented in this encounter Orders Immunization/Injection Count Last Ordered Date First Ordered Date TDAP VACCINE =>7YO IM 1 09/20/2011 documented in this encounter Care Teams Liberal Arts Teacher Relationship Specialty Start Date End Date Tamara Neal MD [address] [place] [phone] PCP - General 09/13/08 03/18/13 documented as of this encounter
--- OUTSIDE RECORDS SUMMARY | 2024-02-17 18:46 | XMS_ITS | Encounter Summary ---
Author Organization [facility] Address [address] [place] [address] Care Team Providers Care Process Mechanic Name Role Phone Tamara Neal MD [...] 16:38 EDT - 09/18/2011 18:02 EDT Emergency [facility] Emergency Department - [address] [address] Martin Gaston, PA-C [address] [phone] Emergency, MD Kamila Visit for [...] AFTER YOUR VISIT TO THE EMERGENCY ROOM ([facility]) documented in this encounter Medications at Time [...] 50 mcg/Actuation nasal sprayIndications:Pelon rgic rhinitis 1 [place] by Nasal route daily. 1 Bottle 2 [...] Notes * Annmarie Mcclelland RN - 09/18/2011 0312 EDT Accompanied Felix RICHMOND while exam of [...] in a private home from a non-registered special effects artist. Patient is informed that she has [...] do to the aggressive nature of the special effects artist. Patient becomes tearful and agitated towards [...] encounter Miscellaneous Notes * Scanned Note-Null - WAISTBAND SETTER LOCKSTITCH, SCAN 2 - 09/21/2011 5004 EDT documented in this encounter Plan of Treatment Not on file documented as of this encounter Visit Diagnoses Diagnosis Visit for wound check Encounter for other specified aftercare documented in this encounter Care Teams Process Mechanic Relationship Specialty Start Date End Date Tamara Neal MD [address] [place] [phone] PCP - General 09/13/08 03/18/13 documented as of this encounter
--- OUTSIDE RECORDS SUMMARY | 2024-02-17 18:46 | XMS_ITS | Encounter Summary ---
Author Organization [facility] Address [address] [place] [address] Care Team Providers Care Emergency Medical Technician Basic Name Role Phone Tamara Neal MD Primary Care Provider + Reason for Visit * Reason Comments Hospital Discharge Follow Up Encounter Details Date Type Department Care Team (Late st Contact Info) Description 10/03/2011 9:45 EDT Office Visit [facility] Family Medicine [address] [address] Tamara Neal MD [address] [place] [phone] Overdose (Primary Dx); Adjustment reaction Social History [...] S: here for hospital follow Admitted to [facility] 10/01-10/01 for suicide attempt with Insulin overdose Took 100 units Lantus Called ex-, who then notified her parents Parents called 911 and found her still arousable Hospital notes/evaluation reviewed NEG ASA, ETOH, Salicylates Other labs WNL Sugars never went below 100 Spent the night on step down unit for monitoring Met with PSYCH from [facility]/ Counseling prior to discharge Has plans to set up counseling with them Left earlier today Safe plan established by Guzman living/staying with her parents [place] overwhelmed by pain issues and just wanted [...] at hospital discharge REviewed CRISIS or our soup person options if needed F/u 1-2 weeks or [...] as of this encounter Care Teams Emergency Medical Technician Basic Relationship Specialty Start Date End Date Tamara Neal MD [address] [place] [phone] PCP - General 09/13/08 03/18/13 documented as of this encounter
--- OUTSIDE RECORDS SUMMARY | 2024-02-17 18:46 | XMS_ITS | Encounter Summary ---
Author Organization [facility] Address [address] [place] [address] Care Team Providers Care Lever Miller Name Role Phone Tamara Neal MD Primary Care Provider + Reason for Visit * Reason Comments Hip Pain Left Encounter Details Date Type Department Care Team (Late st Contact Info) Description 08/20/2011 8:00 EDT Office Visit [facility] Sports Medicine Program - [address] [address] Alberto Moffett MD [address] [place] [phone] Left hip pain; Left thigh pain [...] to expect as an outpatient surgical patient -[facility] Info -Fasting Instructions CINDY FERRERA [...] EDT Sports Medicine Service [facility] [address] [place] [address] PROGRESS/FOLLOWUP NOTE - 08/20/2011 PROBLEM: Left-sided groin [...] She has been seen by the [facility], specifically Dr Diamond, and it was not [...] waiting, additional physical therapy, repeat corticosteroid injection, med care manager, acupuncture and arthroscopic surgery. I [...] - WP Job ID: SM Doc ID: [id number] Ext Doc ID: [id number] cc: Tamara Neal MD documented in this encounter Plan of Treatment Not on file documented as of this encounter Visit Diagnoses Diagnosis Left hip pain Pain in joint, pelvic region and thigh Left thigh pain Pain in limb documented in this encounter Care Teams Lever Miller Relationship Specialty Start Date End Date Tamara Neal MD [address] [place] [phone] PCP - General 09/13/08 03/18/13 documented as of this encounter
--- OUTSIDE RECORDS SUMMARY | 2024-02-17 18:46 | XMS_ITS | Encounter Summary ---
Author Organization [facility] Address [address] [place] [address] Care Team Providers Care Associate Professor Of Medicine Name Role Phone Tamara Neal MD Primary Care Provider + Encounter Details Date Type Department Care Team (Late st Contact Info) Description 08/07/2011 Orders Only [facility] Sports Medicine Program - [address] [address] Haim Caldwell MD [address] [place] [address] Shoulder pain, left (Primary Dx) [...] PM Clinical History/Comments: 719.41-PAIN IN JOINT, SHOULDER IDWBBK-FTS-5-CM shoulder pain Comparison: The patient had a [...] PM Clinical History/Comments: 719.41-PAIN IN JOINT, SHOULDER ABCXCL-LVL-7-CM shoulder pain Comparison: The patient had a [...] region documented in this encounter Care Teams Associate Professor Of Medicine Relationship Specialty Start Date End Date Tamara Neal MD [address] [place] [phone] PCP - General 09/13/08 03/18/13 documented as of this encounter
--- OUTSIDE RECORDS SUMMARY | 2024-02-17 18:46 | XMS_ITS | Encounter Summary ---
Author Organization [facility] Address [address] [place] [address] Care Team Providers Care Auto Travel Counselor Name Role Phone Tamara Neal MD Primary Care Provider + Encounter Details Date Type Department Care Team (Late st Contact Info) Description 07/02/2011 Phlebotomy Only [facility] [address] [place] [address] Rn Lactation Consultant, Outpatient Type 2 diabetes mellitus without (mention [...] METABOLIC PANEL (CMP) (07/02/2011 12:30 EST) Pathologist [facility] Potassium 4.3 3.5 - 5.0 mEq/L [...] BLOO D GAS ORDERABLES Performing Organization Address City/State/[facility] Co de Phone Number [facility] [address] [place] [address] * LIPID PROFILE (INCLUDES CHOLESTEROL, TRIGLYCERIDES, HDL, LDL) (07/02/2011 12:30 EST) Pathologist [facility] Cholesterol 226 mg/dl [facility] Comment: Desirable:<200 Borderline High:200-239 High:>cg=747 Triglycerides 295 mg/dl [facility] Comment: Normal:<150 Borderline High:150-199 High:200-499 Very High:>mc=706 HDL 46 mg/dl [facility] Comment: Low:<40 Normal:40-60 Desirable: >60 LDL, Calculated 121 mg/dl [facility] Comment: Optimal:<100 Near Optimal:100-129 Borderline High:130-159 High:160-189 Very High:>ua=287 Chol/HDL Ratio 4.9 [facility] Fasting? Yes [facility] Blood specimen (specimen) 07/02/2011 12:30 EST 07/02/2011 13:50 EST Tamara Neal MD CHEMISTRY & BLOO D GAS ORDERABLES Performing Organization Address [facility] de Phone Number [facility] [address] [place] [address] * HEMOGLOBIN A1C (07/02/2011 12:30 EST) Hemoglobin A1C 7.2 % [facility] Comment: Reference Range: <5.7% Normal 5.7-6.4% Increased risk for diabetes =>6.5% Diagnostic for diabetes (if confirmed) The A1c goal for non adults in general is <7%. The A1c goal for selected patients may be significantly lower than 7% if this can be achieved without significant hypoglycemia or other adverse effects of treatment. Est Avg Glucose 160 mg/dl [facility] Comment: eAG represents the A1c result expressed as average glucose in mg/dl. Blood specimen (specimen) 07/02/2011 12:30 EST 07/02/2011 13:50 EST Tamara Neal MD CHEMISTRY & BLOO D GAS ORDERABLES Performing Organization Address [facility] de Phone Number [facility] [address] [place] [address] documented in this encounter Visit Diagnoses Diagnosis Type 2 diabetes mellitus without (mention of) complications Type II or unspecified type diabetes mellitus without mention of complication, not stated as uncontrolled documented in this encounter Care Teams Auto Travel Counselor Relationship Specialty Start Date End Date Tamara Neal MD [address] [place] [phone] PCP - General 09/13/08 03/18/13 documented as of this encounter
--- OUTSIDE RECORDS SUMMARY | 2024-02-17 18:46 | XMS_ITS | Encounter Summary ---
Author Organization [facility] Address [address] [place] [address] Care Team Providers Care Drywall Finisher Name Role Phone Tamara Nael MD Primary Care Provider + Reason for Visit * Reason Onset Date Comments Medications Refill 06/25/2011 Encounter Details Date Type Department Care Team (Late st Contact Info) Description 06/25/2011 Telephone [facility] Family Medicine - [address] [phone] Tamara Neal MD [address] [place] [phone] Medications Refill Social History Tobacco Use Types [...] Dilaudid prescription is ready for her to fish bait picker. She states she will be into the office later this am to get it. Per prism telephone encounter from 06/13/11, pt will need to give urine for UD6 and opiate confirmation prior to receiving the prescription. Addendum: came in to the office to fish bait picker the prescription. He was informed by the [facility] staff that patient needs to pick it up. * Telephone Encounter - Nadine Stewart - 06/26/2011 0853 EST Please call Guzman at [phone] when script is ready, thanks. * Telephone [...] on filedocumented in this encounter Care Teams Drywall Finisher Relationship Specialty Start Date End Date Tamara Neal MD [address] [place] [phone] PCP - General 09/13/08 03/18/13 documented as of this encounter
--- OUTSIDE RECORDS SUMMARY | 2024-02-17 18:46 | XMS_ITS | Encounter Summary ---
Author Organization [facility] Address [address] [place] [address] Care Team Providers Care River Pilot Name Role Phone Tamara Neal MD Primary Care Provider + Reason for Visit * Reason Onset Date Comments Appointment Related 08/07/2011 Encounter Details Date Type Department Care Team (Late st Contact Info) Description 08/07/2011 Telephone [facility] Sports Medicine Program - [address] [place], [place] [phone] Cindy Ferrera, RN Appointment Related Social History [...] level. Dr Moffett advised of this. F/U lencho't scheduled for her to come back to see him to discuss other treatment options. CINDY FERRERA RN documented in this encounter Plan of Treatment Not on file documented as of this encounter Visit Diagnoses Not on filedocumented in this encounter Care Teams River Pilot Relationship Specialty Start Date End Date Tamara Neal MD [address] [place] [phone] PCP - General 09/13/08 03/18/13 documented as of this encounter
--- OUTSIDE RECORDS SUMMARY | 2024-02-17 18:46 | XMS_ITS | Encounter Summary ---
Author Organization [facility] Address [address] [place] [address] Care Team Providers Care Sponge Maker Name Role Phone Tamara Neal MD Primary Care Provider + Reason for Visit * Reason Comments Diabetes Here for follow up a nd medication management. Encounter Details Date Type Department Care Team (Late st Contact Info) Description 07/03/2011 16:15 EST Office Visit [facility] Family Medicine [address] [address] Tamara Neal MD [address] [place] [phone] Hyperlipidemia (Primary Dx); Type 2 diabetes mellitus [...] being taken. She does not see a environmental services manager.Eye exam is not current. Patient Active [...] fluticasone (FLONASE) 50 mcg/Actuation nasal spray 1 [place] by Nasal route daily. 1 Bottle 2 [...] ALT 42 9 - 52 U/L [facility] Comment: Results may be affected due [...] GAS ORDERABLES Performing Organization Address [facility] Co de Phone Number [facility] [address] [place] [address] * LIPID PROFILE (INCLUDES CHOLESTEROL, TRIGLYCERIDES, HDL, LDL) (09/03/2011 7:56 EDT) Cholesterol 180 mg/dl [facility] Comment: Desirable:<200 Borderline High:200-239 High:>qz=298 Slight hemolysis Triglycerides 159 mg/dl [facility] Comment: Normal:<150 Borderline High:150-199 High:200-499 Very High:>wp=063 Slight hemolysis HDL 55 mg/dl [facility] Comment: Low:<40 Normal:40-60 Desirable: >60 Slight hemolysis LDL, Calculated 93 mg/dl [facility] Comment: Optimal:<100 Near Optimal:100-129 Borderline High:130-159 High:160-189 Very High:>hk=756 Slight hemolysis Chol/HDL Ratio 3.3 [facility] Comment:Slight hemolysis Fasting? Yes [facility] Blood specimen (specimen) 09/03/2011 7:56 EDT 09/03/2011 8:57 EDT Tamara Neal MD CHEMISTRY & BLOO D GAS ORDERABLES Performing Organization Address [facility] de Phone Number [facility] [address] [place] [address] documented in this encounter Visit Diagnoses Diagnosis [...] 01/07/2012 added in this encounter Care Teams Sponge Maker Relationship Specialty Start Date End Date Tamara Neal MD [address] [place] [phone] PCP - General 09/13/08 03/18/13 documented as of this encounter
--- OUTSIDE RECORDS SUMMARY | 2024-02-17 18:46 | XMS_ITS | Encounter Summary ---
Author Organization [facility] Address [address] [place] [address] Care Team Providers Care Glass Bead Maker Name Role Phone Tamara Neal MD Primary Care Provider + Encounter Details Date Type Department Care Team (Late st Contact Info) Description 09/03/2011 Phlebotomy Only [address] [address] Receptionist Secretary, Outpatient Hyperlipidemia Social History Tobacco Use Types [...] & BLOO D GAS ORDERABLES [facility] [address] [place] [address] * LIPID PROFILE (INCLUDES CHOLESTEROL, TRIGLYCERIDES, HDL, LDL) (09/03/2011 7:56 EDT) Cholesterol 180 mg/dl [facility] Comment: Desirable:<200 Borderline High:200-239 High:>sc=194 Slight hemolysis Triglycerides 159 mg/dl [facility] Comment: Normal:<150 Borderline High:150-199 High:200-499 Very High:>bv=743 Slight hemolysis HDL 55 mg/dl [facility] Comment: Low:<40 Normal:40-60 Desirable: >60 Slight hemolysis LDL, Calculated 93 mg/dl [facility] Comment: Optimal:<100 Near Optimal:100-129 Borderline High:130-159 High:160-189 Very High:>lf=796 Slight hemolysis Chol/HDL Ratio 3.3 [facility] Comment:Slight hemolysis Fasting? Yes [facility] Blood specimen (specimen) 09/03/2011 7:56 EDT 09/03/2011 8:57 EDT Tamara Neal MD CHEMISTRY & BLOO D GAS ORDERABLES [facility] [address] [place] [address] documented in this encounter Visit Diagnoses Diagnosis Hyperlipidemia Other and unspecified hyperlipidemia documented in this encounter Care Teams Glass Bead Maker Relationship Specialty Start Date End Date Tamara Neal MD [address] [place] [phone] PCP - General 09/13/08 03/18/13 documented as of this encounter
--- OUTSIDE RECORDS SUMMARY | 2024-02-17 18:46 | XMS_ITS | Encounter Summary ---
Author Organization [facility] Address [address] [place] [address] Care Team Providers Care Health Care Coach Name Role Phone Tamara Neal MD Primary Care Provider + Reason for Visit * Reason Comments Hip Pain Shoulder Pain Encounter Details Date Type Department Care Team (Late st Contact Info) Description 09/04/2011 15:15 EDT Office Visit [facility] Medicine [address] [phone] Tamara Neal MD [address] [place] [phone] Left hip pain (Primary Dx); Hyperlipidemia; Diabetes mellitus type II, controlled (CMS-HCC) ([facility]); Chronic pain syndrome Discharge Disposition: Auto Discharge [...] the atlantoaxial joint. Has appt at [facility] in September She is concerned that her [...] unspecified hyperlipidemia Diabetes mellitus type II, controlled ([facility]) Type II or unspecified type diabetes mellitus [...] documented as of this encounter Care Teams Health Care Coach Relationship Specialty Start Date End Date Tamara Neal MD [address] [place] [phone] PCP - General 09/13/08 03/18/13 documented as of this encounter
--- OUTSIDE RECORDS SUMMARY | 2024-02-17 18:46 | XMS_ITS | Encounter Summary ---
Author Organization [facility] Address [address] [place] [address] Care Team Providers Care Slab Grinder Name Role Phone Tamara Neal MD Primary Care Provider + Reason for Visit * Reason Onset Date Comments Appointment Related 09/17/2011 Encounter Details Date Type Department Care Team (Late st Contact Info) Description 09/17/[address] [facility] Rehabilitation Therapy - Medical Office Building [address] [place] [address] Naima Rodney, PT Appointment Related Social [...] Therapy Progress Note dated 09/12/11 faxed to WAITER/WAITRESS SECOND CLASS at FAX: [phone]. Claim #: [id number] documented in this encounter Plan of Treatment Not on file documented as of this encounter Visit Diagnoses Not on filedocumented in this encounter Care Teams Slab Grinder Relationship Specialty Start Date End Date Tamara Neal MD [address] [place] [phone] PCP - General 09/13/08 03/18/13 documented as of this encounter
--- OUTSIDE RECORDS SUMMARY | 2024-02-17 18:46 | XMS_ITS | Encounter Summary ---
Author Organization [facility] Address [address] [place] [address] Care Team Providers Care Professional Organizer Name Role Phone Tamara Neal MD Primary Care Provider + Encounter Details Date Type Department Care Team (Late st Contact Info) Description 09/07/[address] [facility] Sports Medicine Program - [address] [address] Haim Caldwell MD [address] [place] [phone] Brachial plexus lesions (Primary Dx) [...] Primary documented in this encounter Care Teams Professional Organizer Relationship Specialty Start Date End Date Tamara Neal MD [address] [place] [phone] PCP - General 09/13/08 03/18/13 documented as of this encounter
--- OUTSIDE RECORDS SUMMARY | 2024-02-17 18:46 | XMS_ITS | Encounter Summary ---
Author Organization [facility] Address [address] [place] [address] Care Team Providers Care Rod Greaser Name Role Phone Tamara Neal MD Primary Care Provider + Reason for Visit * Reason Onset Date Comments Hip Pain 08/02/2011 for left hip inj ection Encounter Details Date Type Department Care Team (Late st Contact Info) Description 08/02/2011 Orders Only [facility] Sports Medicine Program - [address] [place] [address] Aleah Mak, MANAGER INVENTORY MANAGEMENT [address] [place] [address] Left hip pain (Primary Dx) Social History [...] thigh documented in this encounter Care Teams Rod Greaser Relationship Specialty Start Date End Date Tamara Neal MD [address] [place] [phone] PCP - General 09/13/08 03/18/13 documented as of this encounter
--- OUTSIDE RECORDS SUMMARY | 2024-02-17 18:46 | XMS_ITS | Encounter Summary ---
Author Organization [facility] Address [address] [place] [address] Care Team Providers Care Windows Administrator Name Role Phone Tamara Neal MD Primary Care Provider + Reason for Visit * Reason Comments Follow-up Left hip injection Encounter Details Date Type Department Care Team (Late st Contact Info) Description 08/03/2011 14:30 EDT Office Visit [facility] Sports Medicine Program - [address] [address] Alberto Moffett MD [address] [place] [phone] Left hip pain (Primary Dx) Social [...] EDT Sports Medicine Service [facility] [address] [place] [address] PROGRESS/FOLLOWUP NOTE - 08/03/2011 PROBLEM: Left [...] Moffett MD - Alberto Moffett MD - [facility] Job ID: SM Doc ID: [id number] Ext Doc ID: [id number] cc: Tamara Neal MD * Alberto Moffett MD - 08/03/2011 1418 EDT This office note has been dictated. documented in this encounter Miscellaneous Notes * Scanned Note-Null - DOCTOR OF NURSE ANESTHESIA, SCAN 2 - 08/08/2011 1021 EDT documented in this encounter Plan of Treatment Not on file documented as of this encounter Visit Diagnoses Diagnosis Left hip pain- Primary Pain in joint, pelvic region and thigh documented in this encounter Care Teams Windows Administrator Relationship Specialty Start Date End Date Tamara Neal MD [address] [place] [phone] PCP - General 09/13/08 03/18/13 documented as of this encounter
--- OUTSIDE RECORDS SUMMARY | 2024-02-17 18:46 | XMS_ITS | Encounter Summary ---
Author Organization [facility] Address [address] [place] [address] Care Team Providers Care Phytopathology Teacher Name Role Phone Tamara Neal MD Primary Care Provider + Reason for Visit * Reason Onset Date Comments Appointment Related 08/03/2011 Encounter Details Date Type Department Care Team (Late st Contact Info) Description 08/03/2011 Telephone [facility] Rehabilitation Therapy - Medical Office Building [address] [place] [phone] Heena Sin, MILAN Appointment Related Social History [...] 1314 EDT There is a new case filler for this patient. The new case filler's name is: Gal Macias. Her phone# , Her fax # . I have faxed the 08/02/11 OT note to her. documented in this encounter Plan of Treatment Not on file documented as of this encounter Visit Diagnoses Not on filedocumented in this encounter Care Teams Phytopathology Teacher Relationship Specialty Start Date End Date Tamara Neal MD [address] [place] [phone] PCP - General 09/13/08 03/18/13 documented as of this encounter
--- OUTSIDE RECORDS SUMMARY | 2024-02-17 18:46 | XMS_ITS | Encounter Summary ---
Author Organization [facility] Address [address] [place] [address] Care Team Providers Care Journeyman Glazier Name Role Phone Tamara Neal MD Primary Care Provider + Reason for Visit * Reason Onset Date Comments Appointment Related 10/02/2011 Encounter Details Date Type Department Care Team (Late st Contact Info) Description 10/02/2011 Telephone [facility] Rehabilitation Therapy - Medical Office Building [address] [place], [place] [phone] Naima Cooper, PT Appointment Related Social History [...] 0812 EDT [facility] MEDICAL OFFICE BUILDING ([facility]) 2 [facility] [address] Phone: [phone] Fax: [phone] The patient called to cancel today's appointment due to being in the hospital. I did something stupid. Unsure if patient will be in for next appointment this week. NAIMA COOPER, OMAR 10/02/2011 8:13 documented in this encounter Plan of Treatment Not on file documented as of this encounter Visit Diagnoses Not on filedocumented in this encounter Care Teams Journeyman Glazier Relationship Specialty Start Date End Date Tamara Neal MD [address] [place] [phone] PCP - General 09/13/08 03/18/13 documented as of this encounter
--- OUTSIDE RECORDS SUMMARY | 2024-02-17 18:46 | XMS_ITS | Encounter Summary ---
Author Organization [facility] Address [address] [place] [address] Care Team Providers Care Petroleum Refining Firer Name Role Phone Tamara Neal MD Primary Care Provider + Reason for Visit * Reason Onset Date Comments Appointment Related 08/21/2011 Encounter Details Date Type Department Care Team (Late st Contact Info) Description 08/21/2011 Telephone [facility] Rehabilitation [facility] - [address] [address] Naima Rodney, PT Appointment Related Social History [...] EMPI unit faxed to: Attention: [place] - Speech Professor - SOFTWARE SALES MANAGER FAX: [phone] Case #: [id number] documented in this encounter Plan of Treatment Not on file documented as of this encounter Visit Diagnoses Not on filedocumented in this encounter Care Teams Petroleum Refining Firer Relationship Specialty Start Date End Date Tamara Neal MD [address] [place] [phone] PCP - General 09/13/08 03/18/13 documented as of this encounter
--- OUTSIDE RECORDS SUMMARY | 2024-02-17 18:46 | XMS_ITS | Encounter Summary ---
Author Organization [facility] Address [address] [place] [address] Care Team Providers Care Deep Submergence Vehicle Crewmember Name Role Phone Tamara Neal MD Primary Care Provider + Encounter Details Date Type Department Care Team (Late st Contact Info) Description 07/10/2011 Results Only Imaging [facility] [phone] Haim Esteban, DO [address] [place] [phone] Social History Tobacco Use Types Packs/Day Years [...] on filedocumented in this encounter Care Teams Deep Submergence Vehicle Crewmember Relationship Specialty Start Date End Date Tamara Neal MD [address] [place] [phone] PCP - General 09/13/08 03/18/13 documented as of this encounter
--- OUTSIDE RECORDS SUMMARY | 2024-02-17 18:46 | XMS_ITS | Encounter Summary ---
Author Organization [facility] Address [address] [place] [address] Care Team Providers Care Rn Dialysis Name Role Phone Tamara Neal MD Primary Care Provider + Encounter Details Date Type Department Care Team (Latest Contact Info) Description 06/14/2011 10:50 EST - 06/14/2011 23:59 [facility] Hospital Encounter [facility] - Medical Office Building [phone] Tamara Neal MD [address] [place] [phone] Discharge Disposition: Home or Self Care Social [...] 50 mcg/Actuation nasal sprayIndications:Pelon rgic rhinitis 1 [place] by Nasal route daily. 1 Bottle 2 [...] filedocumented in this encounter Care Teams Rn Dialysis Relationship Specialty Start Date End Date Tamara Neal MD [address] [place] [phone] PCP - General 09/13/08 03/18/13 documented as of this encounter
--- OUTSIDE RECORDS SUMMARY | 2024-02-17 18:46 | XMS_ITS | Encounter Summary ---
Author Organization [facility] Address [address] [place] [address] Care Team Providers Care Churn Drill Operator Name Role Phone Tamara Neal MD Primary Care Provider + Reason for Visit * Reason Onset Date Comments Medications Refill 06/15/2011 Encounter Details Date Type Department Care Team (Late st Contact Info) Description 06/15/[address] [facility] Family Medicine - [address] [phone] Tamara Neal MD [address] [place] [phone] Medications Refill Social History Tobacco Use Types [...] Encounter - Tamara Neal MD - 06/19/2011 2277 EST Have sugars been better since insulin [...] documented as of this encounter Care Teams Churn Drill Operator Relationship Specialty Start Date End Date Tamara Neal MD [address] [place] [phone] PCP - General 09/13/08 03/18/13 documented as of this encounter
--- OUTSIDE RECORDS SUMMARY | 2024-02-17 18:46 | XMS_ITS | Encounter Summary ---
Author Organization [facility] Address [address] [place] [address] Care Team Providers Care Miller Wood Flour Name Role Phone Tamara Neal MD Primary Care Provider + Reason for Visit * Reason Onset Date Comments Appointment Related 06/13/2011 Encounter Details Date Type Department Care Team (Late st Contact Info) Description 06/13/2011 Telephone [facility] Rehabilitation Therapy - Medical Office Building [address] [place] [address] [place], [place] [phone] Naima Rodney, PT Appointment Related Social History [...] - 06/13/2011 1441 EST MEDICAL OFFICE BUILDING ([facility]) 2 [facility] [address] Phone: [phone] Fax: [phone] Telephone Intake Information for Scheduling NEW Patients for Therapy Script/referral (Patient has order and will bring) Primary Insurance: [place] If Workers' Comp or Motor Vehicle: Case/claim info entered into IDX? Yes WORKER'S COMP CASE INFORMATION: Case: [id number] Patient: CARLINEHILDA W/C Carrier: [facility] Employer: W/C Ovrd: [facility] Emp Ovrd: [employer] [place] W/C Addr L1: Emp Addr L1: W/C Addr L2: [address] Emp Addr L2: [address] [facility],State: [facility],St: [place], [place] Zip Code: [address] Emp Zip: [address] W/C Emp W/C Claim #: Emp Status Code: UNKNOWN Notes/other: Patient is being referred for shoulder injury (work related) DOI: 06/11/11. [facility] at [facility] will fax office notes, as Charlee Middletonrobert from [facility] has not received the claim as of yet. The patient will check in early to complete paperwork. Liseth Hankins 06/13/2011 documented in this encounter Plan of Treatment Not on file documented as of this encounter Visit Diagnoses Not on filedocumented in this encounter Care Teams Miller Wood Flour Relationship Specialty Start Date End Date Tamara Neal MD [address] [place] [phone] PCP - General 09/13/08 03/18/13 documented as of this encounter
--- OUTSIDE RECORDS SUMMARY | 2024-02-17 18:46 | XMS_ITS | Encounter Summary ---
Author Organization [facility] Address [address] [place] [address] Care Team Providers Care Aquaculturist Name Role Phone Tamara Neal MD Primary Care Provider + Encounter Details Date Type Department Care Team (Latest Contact Info) Description 08/07/2011 14:46 EDT - 08/07/2011 23:59 EDT Hospital Encounter [address] [address] Haim Esteban, DO [address] [place] [phone] Discharge Disposition: Auto Discharge Social History Tobacco [...] 50 mcg/Actuation nasal sprayIndications:Pelon rgic rhinitis 1 [place] by Nasal route daily. 1 Bottle 2 [...] injection for MR arthrogram Date Performed: 08/07/2011 Radiologist/Wire Spinner(s): Marlon Dawkins MD/SAE Lnider Sedation/Anesthesia: 1% lidocaine Time Out: A time-out [...] encounter Miscellaneous Notes * Scanned Note-Null - PROFESSIONAL TUTOR, SCAN 2 - 08/14/2011 1440 EDT documented in this encounter Plan of Treatment Not on file documented as of this encounter Visit Diagnoses Not on filedocumented in this encounter Care Teams Aquaculturist Relationship Specialty Start Date End Date Tamara Neal MD [address] [place] [phone] PCP - General 09/13/08 03/18/13 documented as of this encounter
--- OUTSIDE RECORDS SUMMARY | 2024-02-17 18:46 | XMS_ITS | Encounter Summary ---
Author Organization [facility] Address [address] [place] [address] Care Team Providers Care Marine Steward Name Role Phone Tamara Neal MD Primary Care Provider + Reason for Visit * Reason Onset Date Comments Appointment Related 07/26/2011 Encounter Details Date Type Department Care Team ([facility] Contact Info) Description 07/26/2011 Telephone [facility] Rehabilitation Therapy - Medical Office Building [address] [place], [place] [phone] Naima Rodney, PT Appointment Related Social History [...] 1020 EDT [facility] MEDICAL OFFICE BUILDING ([facility]) 2 [facility] [address] Phone: [phone] Fax: [phone] The patient called to cancel today's appointment due to illness. Liseth Hankins 07/26/2011 10:20 documented in this encounter Plan of Treatment Not on file documented as of this encounter Visit Diagnoses Not on filedocumented in this encounter Care Teams Marine Steward Relationship Specialty Start Date End Date Tamara Neal MD [address] [place] [phone] PCP - General 09/13/08 03/18/13 documented as of this encounter
--- OUTSIDE RECORDS SUMMARY | 2024-02-17 18:46 | XMS_ITS | Encounter Summary ---
Author Organization [facility] Address [address] [place] [address] Care Team Providers Care Green Chainer Name Role Phone Tamara Neal MD Primary Care Provider + Reason for Visit * Reason Onset Date Comments Appointment Related 09/11/2011 Encounter Details Date Type Department Care Team ([facility] Contact Info) Description 09/11/2011 Telephone [facility] Rehabilitation Therapy - Medical Office Building [address] [place], [place] [phone] Naima Rodney, PT Appointment Related Social History [...] 0828 EDT [facility] MEDICAL OFFICE BUILDING ([facility]) 2 [facility] [address] Phone: [phone] Fax: [phone] The patient called to cancel today's appointment and rescheduled for 09/12/11. Liseth Hankins 09/11/2011 8:28 documented in this encounter Plan of Treatment Not on file documented as of this encounter Visit Diagnoses Not on filedocumented in this encounter Care Teams Green Chainer Relationship Specialty Start Date End Date Tamara Neal MD [address] [place] [phone] PCP - General 09/13/08 03/18/13 documented as of this encounter
--- OUTSIDE RECORDS SUMMARY | 2024-02-17 18:46 | XMS_ITS | Encounter Summary ---
Author Organization [facility] Address [address] [place] [address] Care Team Providers Care Roll Tension Tester Name Role Phone Tamara Neal MD Primary Care Provider + Reason for Visit * Reason Onset Date Comments Leg Swelling 09/18/2011 Encounter Details Date Type Department Care Team (Late st Contact Info) Description 09/18/2011 Telephone [facility] Family Medicine [address] [phone] Santa Guerrero RN Leg Swelling Social History [...] Encounter - Santa Guerrero RN - 09/18/2011 5436 EDT Guzman called states my friend gave [...] filedocumented in this encounter Care Teams Roll Tension Tester Relationship Specialty Start Date End Date Tamara Neal MD [address] [place] [phone] PCP - General 09/13/08 03/18/13 documented as of this encounter
--- OUTSIDE RECORDS SUMMARY | 2024-02-17 18:46 | XMS_ITS | Encounter Summary ---
Author Organization [facility] Address [address] [place] [address] Care Team Providers Care Hot Saw Operator Name Role Phone Tamara Neal MD Primary Care Provider + Reason for Visit * Reason Onset Date Comments Procedure 08/21/2011 Encounter Details Date Type Department Care Team (Late st Contact Info) Description 08/21/2011 Pre-Procedure Orders Encounter [facility] Sports Medicine Program [place] [address] [place] [address] Cindy Ferrera, RN Social History Tobacco Use [...] on filedocumented in this encounter Care Teams Hot Saw Operator Relationship Specialty Start Date End Date Tamara Neal MD [address] [place] [phone] PCP - General 09/13/08 03/18/13 documented as of this encounter
--- OUTSIDE RECORDS SUMMARY | 2024-02-17 18:47 | XMS_ITS | Encounter Summary ---
Author Organization [facility] Address [address] [place] [address] Care Team Providers Care Promotional Model Name Role Phone Tamara Neal MD Primary Care Provider + Reason for Visit * Reason Onset Date Comments Appointment Related 12/07/2010 Encounter Details Date Type Department Care Team (Late st Contact Info) Description 12/07/2010 Telephone [facility] Spine Program - [address] [place] [address] Marcin Chacko PA-C [facility] [place] [phone] Appointment Related Social History Tobacco [...] on filedocumented in this encounter Care Teams Promotional Model Relationship Specialty Start Date End Date Tamara Neal MD [address] [place] [phone] PCP - General 09/13/08 03/18/13 documented as of this encounter
--- OUTSIDE RECORDS SUMMARY | 2024-02-17 18:47 | XMS_ITS | Encounter Summary ---
Author Organization [facility] Address [address] [place] [address] Care Team Providers Care Stitch Burnisher Name Role Phone Tamara Neal MD Primary Care Provider + Reason for Visit * Reason Onset Date Comments Prior Auth, Other (i.e. radiology, etc.) 011 Encounter Details Date Type Department Care Team (Late st Contact Info) Description 02/01/2011 Telephone [facility] Sports Medicine Program - [address] [address] Alberto Moffett MD [address] [place] [phone] Prior Auth, Other (i.e. radiology, etc.) [...] [place] [id number] No prior auth is needed. Reference: 02.01.11 Jessica.Hayley Sher documented in this encounter Plan of Treatment Not on file documented as of this encounter Visit Diagnoses Not on filedocumented in this encounter Care Teams Stitch Burnisher Relationship Specialty Start Date End Date Tamara Neal MD [address] [place] [phone] PCP - General 09/13/08 03/18/13 documented as of this encounter
--- OUTSIDE RECORDS SUMMARY | 2024-02-17 18:47 | XMS_ITS | Encounter Summary ---
Author Organization [facility] Address [address] [place] [address] Care Team Providers Care Actuarial Mathematician Name Role Phone Tamara Neal MD Primary Care Provider + Reason for Visit * Reason Comments Tailbone Pain f/u lower back pain Encounter Details Date Type Department Care Team (Late st Contact Info) Description 02/15/2010 11:45 EDT Office Visit [facility] Medicine [address] [address] Tamara Neal MD [address] [place] [phone] LBP (low back pain); Diarrhea; Diabetes (CMS-HCC) ([facility]) Social History Tobacco Use Types Packs/Day Years [...] HEMOGLOBIN A1C Routine 02/15/2010 12:23 EDT Diabetes ([facility]) ([facility]) COMPREHENSIVE METABOLIC PANEL (CMP) Routine 02/15/2010 12:23 EDT Diabetes ([facility]) ([facility]) documented in this encounter Results * HEMOGLOBIN [...] of treatment. Est Avg Glucose 163 mg/dl [facility] Comment:eAG represents the A 1c result expressed as average glucose in mg/dl. Blood specimen (specimen) 02/15/2010 12:23 EDT 02/15/2010 20:43 EDT Tamara Neal MD CHEMISTRY & BLOO D GAS ORDERABLES [facility] [address] [place] [address] * (ABNORMAL) COMPREHENSIVE METABOLIC PANEL (CMP) (02/15/2010 12:23 EDT) Potassium 4.4 3.5 - 5.0 mEq/L [facility] Sodium 138 136 - 145 mEq/L [facility] Chloride 102 96 - 110 mEq/L [facility] CO2 25 24 - 32 mEq/L [facility] Total Alkaline Phosphatase 75 38 - [...] D GAS ORDERABLES [facility] [address] [place] [address] documented in this encounter Visit Diagnoses Diagnosis [...] documented as of this encounter Care Teams Actuarial Mathematician Relationship Specialty Start Date End Date Tamara Neal MD [address] [place] [phone] PCP - General 09/13/08 03/18/13 documented as of this encounter
--- OUTSIDE RECORDS SUMMARY | 2024-02-17 18:47 | XMS_ITS | Encounter Summary ---
Author Organization [facility] Address [address] [place] [address] Care Team Providers Care Vanstone Machine Operator Name Role Phone Tamara Neal MD Primary Care Provider + Encounter Details Date Type Department Care Team (Late st Contact Info) Description 10/12/2010 Abstract [facility] Sports Medicine Program - [address] [place] [address] Tamara Neal MD [address] [place] [phone] Social History Tobacco Use Types Packs/Day Years [...] on filedocumented in this encounter Care Teams Vanstone Machine Operator Relationship Specialty Start Date End Date Tamara Neal MD [address] [place] [phone] PCP - General 09/13/08 03/18/13 documented as of this encounter
--- OUTSIDE RECORDS SUMMARY | 2024-02-17 18:47 | XMS_ITS | Encounter Summary ---
Author Organization [facility] Address [address] [place] [address] Care Team Providers Care Technology Architect Name Role Phone Tamara Neal MD Primary Care Provider + Encounter Details Date Type Department Care Team (Latest Contact Info) Description 12/25/2010 16:23 EDT - 12/25/2010 23:59 EDT Hospital Encounter [facility] - [facility] [place] [address] Kevin Horvath MD Discharge Disposition: Home or [...] 50 mcg/Actuation nasal sprayIndications:Pelon rgic rhinitis 1 [place] by Nasal route daily. 1 Bottle 2 [...] Code Departure Means Destination Home or Self Correction documented in this encounter Plan of Treatment Not on file documented as of this encounter Visit Diagnoses Not on filedocumented in this encounter Care Teams Technology Architect Relationship Specialty Start Date End Date Tamara Neal MD [address] [place] [phone] PCP - General 09/13/08 03/18/13 documented as of this encounter
--- OUTSIDE RECORDS SUMMARY | 2024-02-17 18:47 | XMS_ITS | Encounter Summary ---
Author Organization [facility] Address [address] [place] [address] Care Team Providers Care Retail Sales Clerk Name Role Phone Tamara Neal MD Primary Care Provider + Reason for Visit * Reason Comments Diabetes Follow up Hip Pain Left hip pain Medications Refill Encounter Details Date Type Department Care Team (Late st Contact Info) Description 01/09/2011 17:[address] 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 Normal: ??<30 ug/mg Creat Microalbuminu jacy: ??30-300 ug/mg Creat Clinical albuminuria: ??>300 ug/mg Creat ug/mg Crea [facility] Urine specimen (specimen) 01/09/2011 17:50 EDT 01/10/2011 12:21 EDT Tamara Neal MD CHEMISTRY & BLOO D GAS ORDERABLES Performing Organization Address [facility] de Phone Number [facility] [address] [place] [address] * HEMOGLOBIN A1C (01/09/2011 17:48 EDT) Hemoglobin [...] D GAS ORDERABLES Performing Organization Address [facility] de Phone Number [facility] [address] [place] [address] documented in this encounter Visit Diagnoses Diagnosis [...] documented as of this encounter Care Teams Retail Sales Clerk Relationship Specialty Start Date End Date Tamara Neal MD [address] [place] [phone] PCP - General 09/13/08 03/18/13 documented as of this encounter
--- OUTSIDE RECORDS SUMMARY | 2024-02-17 18:47 | XMS_ITS | Encounter Summary ---
Author Organization [facility] Address [address] [place] [address] Care Team Providers Care Neon Technician Name Role Phone Tamara Neal MD Primary Care Provider + Reason for Visit * Reason Comments Back Pain follow up Diabetes Encounter Details Date Type Department Care Team (Late st Contact Info) Description 02/27/2011 16:30 EDT Office Visit [facility] Family Medicine [address] [phone] Tamara Neal MD [address] [place] [address] [phone] LBP (low back pain) (Primary Dx); Type [...] documented as of this encounter Care Teams Neon Technician Relationship Specialty Start Date End Date Tamara Neal MD [address] [place] [phone] PCP - General 09/13/08 03/18/13 documented as of this encounter
--- OUTSIDE RECORDS SUMMARY | 2024-02-17 18:47 | XMS_ITS | Encounter Summary ---
Author Organization [facility] Address [address] [place] [address] Care Team Providers Care Dust Box Worker Name Role Phone Tamara Neal MD Primary Care Provider + Reason for Visit * Reason Onset Date Comments Back Pain 01/12/2011 Encounter Details Date Type Department Care Team (Late st Contact Info) Description 01/12/2011 Orders Only [facility] Spine Program - [address] [place] [address] Marcin Chacko PA-C [address] [employer] [place] [phone] Left buttock pain; Left hip [...] thigh documented in this encounter Care Teams Dust Box Worker Relationship Specialty Start Date End Date Tamara Neal MD [address] [place] [phone] PCP - General 09/13/08 03/18/13 documented as of this encounter
--- OUTSIDE RECORDS SUMMARY | 2024-02-17 18:47 | XMS_ITS | Encounter Summary ---
Author Organization [facility] Address [address] [place] [address] Care Team Providers Care Yardmaster Name Role Phone Tamara Neal MD Primary Care Provider + Reason for Visit * Reason Comments Joint Pain for about a month Fatigue feels like in a fog Encounter Details Date Type Department Care Team (Late st Contact Info) Description 07/13/2010 13:30 EDT Office Visit [facility] Medicine [address] [address] Unknown, Provider, Danelle Olmos MD Paavola, Michelle, [...] documented in this encounter Progress Notes * eBth Jewell - 07/13/2010 1519 EDT Venipuncture performed [...] for joint pain and fibromyalgia. - Thyroid [place] - Rheumatoid Factor - Sed. Rate:Westergren - gabapentin (NEURONTIN) 100 mg capsule; Take 1 Cap by mouth 3 times daily. Fatigue: Also possibly secondary to sedentary lifestyle and poor physical conditioning. - Thyroid [place] Shazia Tanner MD Reinforced Ironworker PGY2 Pager [phone] Attestation statement: I discussed the patient with [...] & PF4 ORD ERABLES Performing Organization Address [facility] Co de Phone Number [facility] [address] [place] [address] * RHEUMATOID FACTOR (07/13/2010 14:19 EDT) Rheumatoid Factor <20 <20 IU/ml [facility] Blood specimen (specimen) 07/13/2010 14:19 EDT 07/13/2010 17:54 EDT Danelle Olmos MD CHEMISTRY & BLOOD GA S ORDERABLES Performing Organization Address [facility] Co de Phone Number [facility] [address] [place] [address] * THYROID CASCADE (07/13/2010 14:19 EDT) TSH 0.80 0.35 - 5.00 uIU/ml [facility] Comment: ??TSH cascade is not recommended for patients in which pituitary or hypothalamic disorders are suspected. Blood specimen (specimen) 07/13/2010 14:19 EDT 07/13/2010 17:54 EDT Danelle Olmos MD CHEMISTRY & BLOOD GA S ORDERABLES [facility] [address] [place] [address] documented in this encounter Visit Diagnoses Diagnosis [...] documented as of this encounter Care Teams Yardmaster Relationship Specialty Start Date End Date Tamara Neal MD [address] [place] [phone] PCP - General 09/13/08 03/18/13 documented as of this encounter
--- OUTSIDE RECORDS SUMMARY | 2024-02-17 18:47 | XMS_ITS | Encounter Summary ---
Author Organization [facility] Address [address] [place] [address] Care Team Providers Care Java Software Engineer Name Role Phone Tamara Neal MD Primary Care Provider + Encounter Details Date Type Department Care Team (Latest Contact Info) Description 02/23/2011 10:59 EDT - 02/23/2011 23:[address] [facility] [address] [place] [address] Tamara Neal MD [address] [place] [phone] Discharge Disposition: Home or Self Care Social [...] 50 mcg/Actuation nasal sprayIndications:Pelon rgic rhinitis 1 [place] by Nasal route daily. 1 Bottle 2 [...] on filedocumented in this encounter Care Teams Java Software Engineer Relationship Specialty Start Date End Date Tamara Neal MD [address] [place] [address] [phone] PCP - General 09/13/08 03/18/13 documented as of this encounter
--- OUTSIDE RECORDS SUMMARY | 2024-02-17 18:47 | XMS_ITS | Encounter Summary ---
Author Organization [facility] Address [address] [place] [address] Care Team Providers Care Rotary Engraver Name Role Phone Tamara Neal MD Primary Care Provider + Encounter Details Date Type Department Care Team (Late st Contact Info) Description 02/23/2011 Phlebotomy Only [address] [address] Maritime Engineer, Outpatient Type 2 diabetes mellitus without (mention [...] (02/23/2011 11:13 EDT) Hemoglobin A1C 8.6 % [facility] Comment: Reference Range: <5.7% Normal 5.7-6.4% [...] D GAS ORDERABLES [facility] [address] [place] [address] documented in this encounter Visit Diagnoses Diagnosis Type 2 diabetes mellitus without (mention of) complications Type II or unspecified type diabetes mellitus without mention of complication, not stated as uncontrolled documented in this encounter Care Teams Rotary Engraver Relationship Specialty Start Date End Date Tamara Neal MD [address] [place] [phone] PCP - General 09/13/08 03/18/13 documented as of this encounter
--- OUTSIDE RECORDS SUMMARY | 2024-02-17 18:47 | XMS_ITS | Encounter Summary ---
Author Organization [facility] Address [address] [place] [address] Care Team Providers Care Size Worker Name Role Phone Tamara Neal MD Primary Care Provider + Reason for Visit * Reason Onset Date Comments Medication Questions 10/17/2010 Encounter Details Date Type Department Care Team (Late st Contact Info) Description 10/17/2010 Telephone [facility] Family Medicine - [address] [phone] Tamara Neal MD [address] [place] [address] [phone] Medication Questions Social History Tobacco Use Types [...] Encounter - Awilda Fang RN - 10/17/2010 3278 EDT ','<<< Less Detail From Tamara Neal MD Sent Sunday October 17, 2010 13:44 To [facility] Nurse Message Until dr. coe [...] on filedocumented in this encounter Care Teams Size Worker Relationship Specialty Start Date End Date Tamara Neal MD [address] [place] [address] [phone] PCP - General 09/13/08 03/18/13 documented as of this encounter
--- OUTSIDE RECORDS SUMMARY | 2024-02-17 18:47 | XMS_ITS | Encounter Summary ---
Author Organization [facility] Address [address] [place] [address] Care Team Providers Care Dietitian Assistant Name Role Phone Tamara Neal MD Primary Care Provider + Reason for Visit * Reason Onset Date Comments Back Pain 02/23/2011 Encounter Details Date Type Department Care Team (Late st Contact Info) Description 02/23/2011 Orders Only [facility] Spine Program - [address] [place] [address] Marcin Diamond MD [address] [facility] [place] [phone] LBP (low back pain) (Primary [...] Lumbago documented in this encounter Care Teams Dietitian Assistant Relationship Specialty Start Date End Date Tamara Neal MD [address] [place] [phone] PCP - General 09/13/08 03/18/13 documented as of this encounter
--- OUTSIDE RECORDS SUMMARY | 2024-02-17 18:47 | XMS_ITS | Encounter Summary ---
Author Organization [facility] Address [address] [place] [address] Care Team Providers Care Railroad Emergency Services Manager Name Role Phone Tamara Neal MD Primary Care Provider + Reason for Visit * Reason Comments Back Pain low back pain Encounter Details Date Type Department Care Team (Late st Contact Info) Description 01/04/2011 14:30 EDT Office Visit [facility] Spine Program - [address] [place] [address] Marcin Chacko PA-C [address] [facility] [place] [phone] Low back pain; Lumbar radiculopathy [...] with 15 minutes of our time spent [id number] discussing symptoms, subjective complaints and reviewing her treatment options. documented in this encounter Plan of Treatment Not on file documented as of this encounter Visit Diagnoses Diagnosis Low back pain Lumbago Lumbar radiculopathy Thoracic or lumbosacral neuritis or radiculitis, unspecified documented in this encounter Care Teams Railroad Emergency Services Manager Relationship Specialty Start Date End Date Tamara Neal MD [address] [place], [place] [phone] PCP - General 09/13/08 03/18/13 documented as of this encounter
--- OUTSIDE RECORDS SUMMARY | 2024-02-17 18:47 | XMS_ITS | Encounter Summary ---
Author Organization [facility] Address [address] [place] [address] Care Team Providers Care Water And Sewer Systems Supervisor Name Role Phone Tamara Neal MD Primary Care Provider + Reason for Visit * Reason Onset Date Comments Results 02/23/2011 Encounter Details Date Type Department Care Team (Late st Contact Info) Description 02/23/2011 Telephone [facility] Family Medicine - [address] [phone] Tamara Neal MD [address] [place] [phone] Results Social History Tobacco Use Types Packs/Day [...] on filedocumented in this encounter Care Teams Water And Sewer Systems Supervisor Relationship Specialty Start Date End Date Tamara Neal MD [address] [place] [address] [phone] PCP - General 09/13/08 03/18/13 documented as of this encounter
--- OUTSIDE RECORDS SUMMARY | 2024-02-17 18:47 | XMS_ITS | Encounter Summary ---
Author Organization [facility] Address [address] [place] [address] Care Team Providers Care Motor Patrol Operator Name Role Phone Tamara Neal MD [...] Info) Description 08/01/2010 14:[address] [facility] Family Medicine - [address] [address] Unknown, Provider, Chetna Vicente MD Stein, Arelne Guerrero MD [address] [place] [address] [address] [place] [phone] Allergic rhinitis (Primary Dx); Chronic [...] (FLONASE) 50 mcg/Actuation nasal sprayIndications:Allergic rhinitis 1 [place] by Nasal route daily. 1 Bottle [...] fluticasone (FLONASE) 50 mcg/Actuation nasal spray; 1 [place] by Nasal route daily. Chronic pain syndrome [...] 1.5 months -Arlene Aly MD PGY-3 Pager #[phone] 08/01/2010 14:57 Attestation statement: I discussed the [...] as of this encounter Care Teams Motor Patrol Operator Relationship Specialty Start Date End Date Tamara Neal MD [address] [place] [phone] PCP - General 09/13/08 03/18/13 documented as of this encounter
--- OUTSIDE RECORDS SUMMARY | 2024-02-17 18:47 | XMS_ITS | Encounter Summary ---
Author Organization [facility] Address [address] [place] [address] Care Team Providers Care Merchant Mariner Name Role Phone Tamara Neal MD Primary Care Provider + Reason for Visit * Reason Onset Date Comments Diabetes 09/19/2010 Encounter Details Date Type Department Care Team (Late st Contact Info) Description 09/19/2010 Telephone [facility] Family Medicine - [address] [phone] Tamara Neal MD [address] [place] [address] [phone] Diabetes Social History Tobacco Use Types Packs/Day [...] Miscellaneous Notes * Telephone Encounter - Carolann Lawrence - 09/19/2010 1107 EDT Left message for pt to reschedule annual with Dr. Meléndez or Dr. Neal. documented in this encounter Plan of Treatment Not on file documented as of this encounter Visit Diagnoses Not on filedocumented in this encounter Care Teams Merchant Mariner Relationship Specialty Start Date End Date Tamara Neal MD [address] [place] [phone] PCP - General 09/13/08 03/18/13 documented as of this encounter
--- OUTSIDE RECORDS SUMMARY | 2024-02-17 18:47 | XMS_ITS | Encounter Summary ---
Author Organization [facility] Address [address] [place] [address] Care Team Providers Care Point Of Care Specialist Name Role Phone Tamara Neal MD Primary Care Provider + Reason for Visit * Reason Comments Diabetes MEDICATION CHECK Encounter Details Date Type Department Care Team (Late st Contact Info) Description 04/10/2011 17:30 EST Office Visit [facility] [place] Family Medicine [address] [address] Tamara Neal MD [address] [place] [phone] Type 2 diabetes mellitus without (mention of) [...] not had a previous visit with a aoc plans intelligence officer. She participates in exercise intermittently. Her home blood glucose trend is decreasing steadily. An PHILIPPE inhibitor/angiotensin II receptor oleg is not being taken. She does not see a therapeutic radiologist.Eye exam is not current. Did not yet [...] fluticasone (FLONASE) 50 mcg/Actuation nasal spray 1 [place] by Nasal route daily. 1 Bottle 2 [...] Results * HEMOGLOBIN A1C (07/02/2011 12:30 EST) [facility] Hemoglobin A1C 7.2 % [facility] Comment: Reference Range: [...] D GAS ORDERABLES [facility] [address] [place] [address] documented in this encounter Visit Diagnoses Diagnosis [...] 07/03/2011 added in this encounter Care Teams Point Of Care Specialist Relationship Specialty Start Date End Date Tamara Neal MD [address] [place] [phone] PCP - General 09/13/08 03/18/13 documented as of this encounter
--- OUTSIDE RECORDS SUMMARY | 2024-02-17 18:47 | XMS_ITS | Encounter Summary ---
Author Organization [facility] Address [address] [place] [address] Care Team Providers Care Solar Sales Energy Advisor Name Role Phone Tamara Neal MD Primary Care Provider + Reason for Visit * Reason Onset Date Comments Appointment Related 01/12/2011 Encounter Details Date Type Department Care Team (Late st Contact Info) Description 01/12/2011 Telephone [facility] Spine Program - [place] Pending sale to [facility] [place] [address] Marcin Chacko PA-C Pending sale to [facility] [phone] Appointment Related Social History Tobacco [...] on filedocumented in this encounter Care Teams Solar Sales Energy Advisor Relationship Specialty Start Date End Date Tamara Neal MD [address] [place] [phone] PCP - General 09/13/08 03/18/13 documented as of this encounter
--- OUTSIDE RECORDS SUMMARY | 2024-02-17 18:47 | XMS_ITS | Encounter Summary ---
Author Organization [facility] Address [address] [place] [address] Care Team Providers Care Assistant Controller Name Role Phone Tamara Neal MD Primary Care Provider + Reason for Visit * Reason Onset Date Comments Hip Pain 09/01/2010 Encounter Details Date Type Department Care Team (Late st Contact Info) Description 09/01/2010 Telephone [facility] Family Medicine - [address] [phone] Tamara Neal MD [address] [place] [phone] Hip Pain Social History Tobacco Use Types [...] Telephone Encounter - Nadine Stewart - 09/01/2010 5753 EDT Patient called wanted to figure out if her hip is out of the joint, please call. She is having painin her hip. documented in this encounter Plan of Treatment Not on file documented as of this encounter Visit Diagnoses Not on filedocumented in this encounter Care Teams Assistant Controller Relationship Specialty Start Date End Date Tamara Neal MD [address] [place] [phone] PCP - General 09/13/08 03/18/13 documented as of this encounter
--- OUTSIDE RECORDS SUMMARY | 2024-02-17 18:47 | XMS_ITS | Encounter Summary ---
Author Organization [facility] Address [address] [place] [address] Care Team Providers Care Patient Flow Coordinator Name Role Phone Tamara Neal MD Primary Care Provider + Encounter Details Date Type Department Care Team (Late st Contact Info) Description 08/09/2010 Results Only Imaging [facility] [phone] [place] [address] [place] [address] Social History Tobacco Use Types [...] on filedocumented in this encounter Care Teams Patient Flow Coordinator Relationship Specialty Start Date End Date Tamara Neal MD [address] [place] [phone] PCP - General 09/13/08 03/18/13 documented as of this encounter
--- OUTSIDE RECORDS SUMMARY | 2024-02-17 18:47 | XMS_ITS | Encounter Summary ---
Author Organization [facility] Address [address] [place] [address] Care Team Providers Care Telephone Ad Taker Name Role Phone Tamara Neal MD Primary Care Provider + Reason for Visit * Reason Comments MEDICATION CHECK Encounter Details Date Type Department Care Team (Late st Contact Info) Description 06/12/2011 17:30 EST Office Visit [facility] Family Medicine [address] [address] Tamara Neal MD [address] [place] [address] [phone] Chronic pain syndrome (Primary Dx); Type 2 [...] not had a previous visit with a fac engineer. She participates in exercise int ermittently (hip [...] fluticasone (FLONASE) 50 mcg/Actuation nasal spray 1 [place] by Nasal route daily. 1 Bottle 2 [...] COMPREHENSIVE METABOLIC PANEL (CMP); Future - MICROALBUMIN [[id number]]; Future - Generic DME Order Lbp (low [...] Opiate confirmation on 06/25 in order to poultry picking machine tender Rx dated for 06/26 for 2 weeksupply [...] BLOO D GAS ORDERABLES Performing Organization Address City/State/[facility] Co de Phone Number [facility] [address] [place] [address] * LIPID PROFILE (INCLUDES CHOLESTEROL, TRIGLYCERIDES, HDL, LDL) (07/02/2011 12:30 EST) Cholesterol 226 mg/dl [facility] Comment: Desirable:<200 Borderline High:200-239 High:>bg=835 Triglycerides 295 mg/dl [facility] Comment: Normal:<150 Borderline High:150-199 High:200-499 Very High:>tk=266 HDL 46 mg/dl [facility] Comment: Low:<40 Normal:40-60 Desirable: >60 LDL, Calculated 121 mg/dl [facility] Comment: Optimal:<100 Near Optimal:100-129 Borderline High:130-159 High:160-189 Very High:>jw=574 Chol/HDL Ratio 4.9 [facility] Fasting? Yes [facility] Blood specimen (specimen) 07/02/2011 12:30 EST 07/02/2011 13:50 EST Tamara Neal MD CHEMISTRY & BLOO D GAS ORDERABLES Performing Organization Address [facility] de Phone Number [facility] [address] [place] [address] * OPIATE CONFIRMATION (06/26/2011 13:49 EST) Opiates [...] use in employment-related drug testing. Performed by: [facility], [address], [place] [address], Preparation Room Manager: Rose Lincoln, Ph.D. Urine specimen (specimen) 06/26/2011 13:49 EST 06/26/2011 18:12 EST Tamara Neal MD URINALYSIS ORDER YOON Performing Organization Address [facility] de Phone Number [facility] [address] [place] [address] * DRUG SCREEN 6 (06/26/2011 13:49 EST) [...] MD URINALYSIS ORDER YOON Performing Organization Address [facility] de Phone Number [facility] [address] [place] [address] * ALBUMIN, URINE (06/26/2011 13:49 EST) Creatinine, Urn [place] 117.6 mg/dl [facility] Ur Albumin mg/dl 0.9 <1.9 mg/dl [facility] Ur Alb ug/mg Crea 7.7 ug/mg Crea [facility] Comment: Normal: <30 ug/mg creat High: 30-300 ug/mg creat Very high and nephrotic: >300 ug/mg creat Urine specimen (specimen) 06/26/2011 13:49 EST 06/26/2011 18:12 EST Tamara Neal MD CHEMISTRY & BLOO D GAS ORDERABLES Performing Organization Address [facility] de Phone Number [facility] [address] [place] [address] documented in this encounter Visit Diagnoses Diagnosis [...] 06/12/2011 documented in this encounter Care Teams Telephone Ad Taker Relationship Specialty Start Date End Date Tamara Neal MD [address] [place] [phone] PCP - General 09/13/08 03/18/13 documented as of this encounter
--- OUTSIDE RECORDS SUMMARY | 2024-02-17 18:47 | XMS_ITS | Encounter Summary ---
Author Organization [facility] Address [address] [place] [address] Care Team Providers Care Curator Of Photography And Prints Name Role Phone Tamara Neal MD Primary Care Provider + Encounter Details Date Type Department Care Team (Late st Contact Info) Description 11/07/2010 Abstract [facility] Sports Medicine Program - [address] [address] Alberto Moffett MD [address] [place] [phone] Social History Tobacco Use Types [...] on filedocumented in this encounter Care Teams Curator Of Photography And Prints Relationship Specialty Start Date End Date Tamara Neal MD [address] [place] [phone] PCP - General 09/13/08 03/18/13 documented as of this encounter
--- OUTSIDE RECORDS SUMMARY | 2024-02-17 18:47 | XMS_ITS | Encounter Summary ---
Author Organization [facility] Address [address] [place] [address] Care Team Providers Care Hydroelectric Plant Structural Engineer Name Role Phone Tamara Neal MD Primary Care Provider + Reason for Visit * Reason Comments Hip Pain Diabetes Pt states her glipiz ied is making her nauseous Encounter Details Date Type Department Care Team (Late st Contact Info) Description 10/10/2010 15:45 EDT Office Visit [facility] Medicine [address] [address] Tamara Neal MD [address] [place] [phone] Type 2 diabetes mellitus without (mention [...] Notes * Tamara Neal MD - 10/10/2010 5172 EDT S: here to f/u on diabetes [...] seen and traeted by Dr. Coe at [facility] (private pain clinic). We received [...] documented as of this encounter Care Teams Hydroelectric Plant Structural Engineer Relationship Specialty Start Date End Date Tamara Neal MD [address] [place] [phone] PCP - General 09/13/08 03/18/13 documented as of this encounter
--- OUTSIDE RECORDS SUMMARY | 2024-02-17 18:47 | XMS_ITS | Encounter Summary ---
Author Organization [facility] Address [address] [place] [address] Care Team Providers Care Electric Arc Furnace Operator Name Role Phone Tamara Neal MD Primary Care Provider + Reason for Visit * Reason Onset Date Comments Medication Problem 10/11/2010 Encounter Details Date Type Department Care Team (Late st Contact Info) Description 10/11/2010 Refill [facility] Family Medicine - [address] [address] Tamara Neal MD [address] [place] [phone] Medication Problem Social History Tobacco Use Types [...] Encounter - Santa Guerrero, RN - 10/12/2010 6373 EDT please ask one of my team [...] documented as of this encounter Care Teams Electric Arc Furnace Operator Relationship Specialty Start Date End Date Tamara Neal MD [address] [place] [phone] PCP - General 09/13/08 03/18/13 documented as of this encounter
--- OUTSIDE RECORDS SUMMARY | 2024-02-17 18:47 | XMS_ITS | Encounter Summary ---
Author Organization [facility] Address [address] [place] [address] Care Team Providers Care Reimbursement Director Name Role Phone Tamara Neal MD Primary Care Provider + Encounter Details Date Type Department Care Team (Late st Contact Info) Description 09/27/2010 Results Only [facility] [phone] Point, Of Care User [address] [place] [address] Social History Tobacco Use Types Packs/Day Years [...] Ketones 1+(A) NEG [facility] Specific [place] >=1.030 1.001 - 1.035 [facility] Blood 1+(A) NEG [facility] pH 5.0 4.6 - 8.0 [facility] Protein 1+(A) NEG [facility] Urobilinogen 0.2 0.2 - 1.0 E.U./dl [facility] Nitrite Neg NEG [facility] Leuk Esterase Neg NEG [facility] mass spec ID [id number] Test performed at [facility] 09/27/2010 16:1 1 EDT 09/27/2010 16:14 EDT Of Care User Point POINT OF CARE TEST O RDERABLES [facility] [address] [place] [address] documented in this encounter Visit Diagnoses Not on filedocumented in this encounter Care Teams Reimbursement Director Relationship Specialty Start Date End Date Tamara Neal MD [address] [place] [address] [phone] PCP - General 09/13/08 03/18/13 documented as of this encounter
--- OUTSIDE RECORDS SUMMARY | 2024-02-17 18:47 | XMS_ITS | Encounter Summary ---
Author Organization [facility] Address [address] [place] [address] Care Team Providers Care Wildlife Enforcement Major Name Role Phone Tamara Neal MD Primary Care Provider + Reason for Visit * Reason Comments Hip Pain left Encounter Details Date Type Department Care Team (Late st Contact Info) Description 11/06/2010 13:00 EDT Office Visit [facility] Sports Medicine Program - [address] [address] Alberto Moffett MD [address] [place] [address] Left hip pain; Left buttock [...] EDT Sports [facility] [address] [place] [address] PROGRESS/FOLLOWUP NOTE - 11/06/2010 PROBLEM: Left hip pain. HISTORY OF PRESENT ILLNESS: Guzman is a 35-year-old female who presents to the Sports [facility] at [facility] for evaluation of chronic left hip pain. [...] seen by BASILIO Rene from the [facility]. She apparently had a surgical consultation with [...] had any physical therapy. She has had interior plant caretaker. She did have an intraarticular injection into [...] HISTORY: Diabetes. 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 She does not [...] is no longer being followed by Dr Ceo. She has a relationship here with the [facility] and I recommended a repeat evaluation for [...] - JAKE Job ID: SM Doc ID: [id number] Ext Doc ID: [id number] cc: Tamara Neal MD * Marlo Dalton MD - 11/06/2010 1400 EDT This office note has been dictated. MARLO DALTON MD documented in this encounter Plan of Treatment Not on file documented as of this encounter Visit Diagnoses Diagnosis Left hip pain Pain in joint, pelvic region and thigh Left buttock pain Mylagia and myositis, unspecified documented in this encounter Care Teams Wildlife Enforcement Major Relationship Specialty Start Date End Date Tamara Neal MD [address] [place] [phone] PCP - General 09/13/08 03/18/13 documented as of this encounter
--- OUTSIDE RECORDS SUMMARY | 2024-02-17 18:47 | XMS_ITS | Encounter Summary ---
Author Organization [facility] Address [address] [place] [address] Care Team Providers Care Board Of Education Secretary Name Role Phone Tamara Neal MD Primary Care Provider + Encounter Details Date Type Department Care Team (Latest Contact Info) Description 09/11/2010 14:42 EDT - 09/11/2010 23:59 EDT Hospital Encounter [address] [address] [place] [address] [place] [address] Discharge Disposition: Home or Self [...] 50 mcg/Actuation nasal sprayIndications:Pelon rgic rhinitis 1 [place] by Nasal route daily. 1 Bottle 2 [...] or Self Residential documented in this encounter Miscellaneous Notes * Scanned Note-Null - Adjunct History Instructor, Scan - 09/11/2010 0000 EDT documented in this encounter Plan of Treatment Not on file documented as of this encounter Visit Diagnoses Not on filedocumented in this encounter Care Teams Board Of Education Secretary Relationship Specialty Start Date End Date Tamara Neal MD [address] [place] [phone] PCP - General 09/13/08 03/18/13 documented as of this encounter
--- OUTSIDE RECORDS SUMMARY | 2024-02-17 18:47 | XMS_ITS | Encounter Summary ---
Author Organization [facility] Address [address] [place] [address] Care Team Providers Care Radiation Control Health Physicist Name Role Phone Tamara Neal MD Primary Care Provider + Reason for Visit * Reason Onset Date Comments Back Pain 01/08/2011 Encounter Details Date Type Department Care Team (Late st Contact Info) Description 01/08/2011 Telephone [facility] Spine Program - [address] [place] [address] Marcin Chacko PA-C [facility] [employer] [place] [address] Back Pain Social History Tobacco [...] on filedocumented in this encounter Care Teams Radiation Control Health Physicist Relationship Specialty Start Date End Date Tamara Neal MD [address] [place] [phone] PCP - General 09/13/08 03/18/13 documented as of this encounter
--- OUTSIDE RECORDS SUMMARY | 2024-02-17 18:47 | XMS_ITS | Encounter Summary ---
Author Organization [facility] Address [address] [place] [address] Care Team Providers Care Salesperson Jewelry Name Role Phone Tamara Neal MD Primary Care Provider + Reason for Visit * Reason Comments Leg Pain Left Encounter Details Date Type Department Care Team (Latest Contact Info) Description 02/22/2011 9:00 EDT Office Visit [facility] Rehabilitation Therapy [address] [address] Joni Lau MD [address] [place] [phone] LBP (low back pain); Left hip [...] 02/22/2011 ATTENDING PHYSICIAN: Joni Lau MD REQUESTING REPUBLICAN: BASILIO Blackman PRIMARY CARE PHYSICIAN: Tamara Neal [...] - VLADIMIR Job ID: SM Doc ID: [id number] Ext Doc ID: [id number] cc: MD Marcin Mcwilliams PA documented in this encounter Plan of Treatment Not on file documented as of this encounter Visit Diagnoses Diagnosis LBP (low back pain) Lumbago Left hip pain Pain in joint, pelvic region and thigh documented in this encounter Care Teams Salesperson Jewelry Relationship Specialty Start Date End Date aTmara Neal MD [address] [place] [phone] PCP - General 09/13/08 03/18/13 documented as of this encounter
--- OUTSIDE RECORDS SUMMARY | 2024-02-17 18:47 | XMS_ITS | Encounter Summary ---
Author Organization [facility] Address [address] [place] [address] Care Team Providers Care Advocacy Director Name Role Phone Tamara Neal MD Primary Care Provider + Reason for Visit * Reason Onset Date Comments Eye Problem 07/25/2010 Encounter Details Date Type Department Care Team (Late st Contact Info) Description 07/25/2010 Telephone [facility] Family Medicine - [address] [phone] Tamara Neal MD [address] [place] [address] [phone] Eye Problem Social History Tobacco Use Types [...] on filedocumented in this encounter Care Teams Advocacy Director Relationship Specialty Start Date End Date Tamara Neal MD [address] [place] [phone] PCP - General 09/13/08 03/18/13 documented as of this encounter
--- OUTSIDE RECORDS SUMMARY | 2024-02-17 18:47 | XMS_ITS | Encounter Summary ---
Author Organization [facility] Address [address] [place] [address] Care Team Providers Care Mud Temperer Name Role Phone Tamara Neal MD Primary Care Provider + Reason for Visit * Reason Onset Date Comments Headache 12/11/2010 Blood Sugar Problem 12/11/2010 Encounter Details Date Type Department Care Team (Late st Contact Info) Description 12/11/2010 Telephone [facility] Family Medicine - [address] [phone] Tamara Neal MD [address] [place] [address] [phone] Headache; Blood Sugar Problem Social History Tobacco [...] Encounter - Awilda Fang RN - 12/11/2010 3763 EDT Pt notified of Dr. Neal's response [...] on filedocumented in this encounter Care Teams Mud Temperer Relationship Specialty Start Date End Date Tamara Neal MD [address] [place], [place] [phone] PCP - General 09/13/08 03/18/13 documented as of this encounter
--- OUTSIDE RECORDS SUMMARY | 2024-02-17 18:47 | XMS_ITS | Encounter Summary ---
Author Organization [facility] Address [address] [place] [address] Care Team Providers Care Deep Tissue Massage Therapist Name Role Phone Tamara Neal MD Primary Care Provider + Encounter Details Date Type Department Care Team (Late st Contact Info) Description 01/25/[address] [facility] Sports Medicine Program - [address] [place] [address] [address] Alberto Moffett MD [address] [place] [phone] Hip pain (Primary Dx) Social [...] thigh documented in this encounter Care Teams Deep Tissue Massage Therapist Relationship Specialty Start Date End Date Tamara Neal MD [address] [place] [phone] PCP - General 09/13/08 03/18/13 documented as of this encounter
--- OUTSIDE RECORDS SUMMARY | 2024-02-17 18:47 | XMS_ITS | Encounter Summary ---
Author Organization [facility] Address [address] [place] [address] Care Team Providers Care Flight Surveyor Name Role Phone Tamara Neal MD Primary Care Provider + Reason for Visit * Reason Comments Diabetes fs this am before br [id number];received lumbar inj. on , and has had trouble with fs's since Encounter Details Date Type Department Care Team (Late st Contact Info) Description 03/16/2010 8:30 EST Office Visit [facility] Medicine [address] [phone] Tamara Neal MD [address] [place] [phone] Type 2 diabetes mellitus without (mention [...] [facility] Bands 0.17 K/cmm [facility] ABS Lymphs 4.70(H) 1.09 - 3.30 K/cmm [facility] ABS Monocytes 1.68(H) 0.1 - 0.8 K/cmm [facility] RBC Morphology Normal [facility] Type of Diff: Manual [facility] Blood specimen (specimen) 03/16/2010 8:34 EST 03/16/2010 11:57 EST Tamara Neal MD PACKAGES & DNA P ROBE ORDERABLES [facility] [address] [place] [address] documented in this encounter Visit Diagnoses Diagnosis [...] 03/16/2010 documented in this encounter Care Teams Flight Surveyor Relationship Specialty Start Date End Date Tamara Neal MD [address] [place] [phone] PCP - General 09/13/08 03/18/13 documented as of this encounter
--- OUTSIDE RECORDS SUMMARY | 2024-02-17 18:47 | XMS_ITS | Encounter Summary ---
Author Organization [facility] Address [address] [place] [address] Care Team Providers Care Ruby On Rails Web Developer Name Role Phone Tamara Neal MD Primary Care Provider + Reason for Visit * Reason Onset Date Comments Medication Problem 08/01/2010 Encounter Details Date Type Department Care Team (Late st Contact Info) Description 08/01/2010 Refill [facility] Family Medicine [address] [phone] Arlene Aly MD [address] [place] [address] [address] [place] [address] Medication Problem Social History Tobacco [...] on filedocumented in this encounter Care Teams Ruby On Rails Web Developer Relationship Specialty Start Date End Date Tamara Neal MD [address] [place] [phone] PCP - General 09/13/08 03/18/13 documented as of this encounter
--- OUTSIDE RECORDS SUMMARY | 2024-02-17 18:47 | XMS_ITS | Encounter Summary ---
Author Organization [facility] Address [address] [place] [address] Care Team Providers Care Fire Extinguisher Sprinkler Inspector Name Role Phone Tamara Neal MD Primary Care Provider + Reason for Visit * Reason Onset Date Comments Medications Refill 10/18/2010 Encounter Details Date Type Department Care Team (Late st Contact Info) Description 10/18/[address] [facility] Family Medicine [address] [address] Tamara Neal MD [address] [place] [phone] Medications Refill Social History Tobacco Use Types [...] Patient called in regards to records from [facility] that Dr. Neal needed before [...] documented as of this encounter Care Teams Fire Extinguisher Sprinkler Inspector Relationship Specialty Start Date End Date Tamara Neal MD [address] [place] [phone] PCP - General 09/13/08 03/18/13 documented as of this encounter
--- OUTSIDE RECORDS SUMMARY | 2024-02-17 18:47 | XMS_ITS | Encounter Summary ---
Author Organization [facility] Address [address] [place] [address] Care Team Providers Care Tender Coordinator Name Role Phone Tamara Neal MD Primary Care Provider + Reason for Referral * Consult (Routine) - Closed Specialty Diagnoses / Procedures Referred By Savannah ashton Referred To Contact Anesthesiology Diagnoses Lumbago Roya Saravia MD [address] [place] [phone] Referral ID Status Reason Start Date Expiration Date V isits Requested Visits Authorized [id number] Closed Specialty Services Required 02/26/2011 1 1 Question Answer Reason for Request: left buttock and groin pain Comments Left hip intra articular injection with local anesthetic only Reason for Visit * Reason Comments Back Pain Encounter Details Date Type Department Care Team (Late st Contact Info) Description 02/26/2011 8:00 EDT Office Visit [facility] Spine Program [place] [address] [place] [address] Roya Saravia MD [address] [place] [phone] Lumbago (Primary Dx) Social History Tobacco [...] Saravia MD - 02/28/2011 1135 EDT [facility] [address] [place] [phone] CONSULTATION - 02/26/2011 PROBLEM: 1. 80% low back, 20% left groin and thigh pain. 2. Qzj-ziuybvh-sozehqboc diabetes. 3. A ten pack year smoking history. a. Smoking cessation 2008. 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 Notes that she began developing pain when [...] She is with 2 children. 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 OBJECTIVE: [...] - JG Job ID: SM Doc ID: [id number] Ext Doc ID: [id number] cc: documented in this encounter Plan of Treatment Scheduled Referrals Name Type Priority Associated Diagnoses Order Schedule AMB CONSULT ANESTHESIOLOGY Outpatient Referral Routine Lumbago Ordered: 02/26/2011 documented as of this encounter Visit Diagnoses Diagnosis Lumbago- Primary documented in this encounter Care Teams Tender Coordinator Relationship Specialty Start Date End Date Tamara Neal MD [address] [place] [phone] PCP - General 09/13/08 03/18/13 documented as of this encounter
--- OUTSIDE RECORDS SUMMARY | 2024-02-17 18:47 | XMS_ITS | Encounter Summary ---
Author Organization [facility] Address [address] [place] [address] Care Team Providers Care Corrosion Technician Name Role Phone Tamara Neal MD Primary Care Provider + Encounter Details Date Type Department Care Team (Late st Contact Info) Description 08/09/2010 Results Only [facility] [phone] [place] [address] [place] [address] Social History Tobacco Use Types [...] on filedocumented in this encounter Care Teams Corrosion Technician Relationship Specialty Start Date End Date Tamara Neal MD [address] [place] [phone] PCP - General 09/13/08 03/18/13 documented as of this encounter
--- OUTSIDE RECORDS SUMMARY | 2024-02-17 18:47 | XMS_ITS | Encounter Summary ---
Author Organization [facility] Address [address] [place] [address] Care Team Providers Care Nick Setter Name Role Phone Tamara Neal MD Primary Care Provider + Reason for Visit * Reason Comments Medication Management Diabetes Encounter Details Date Type Department Care Team (Late st Contact Info) Description 12/12/2010 15:30 EDT Office Visit [facility] Family Medicine [address] [address] Tamara Neal MD [address] [place] [address] [phone] Type 2 diabetes mellitus without (mention of) [...] fluticasone (FLONASE) 50 mcg/Actuation nasal spray 1 [place] by Nasal route daily. 1 [...] D GAS ORDERABLES [facility] [address] [place] [address] documented in this encounter Visit Diagnoses Diagnosis [...] 12/12/2010 documented in this encounter Care Teams Nick Setter Relationship Specialty Start Date End Date Tamara Neal MD [address] [place] [phone] PCP - General 09/13/08 03/18/13 documented as of this encounter
--- OUTSIDE RECORDS SUMMARY | 2024-02-17 18:47 | XMS_ITS | Encounter Summary ---
Author Organization [facility] Address [address] [place] [address] Care Team Providers Care Hat Body Inspector Name Role Phone Tamara Neal MD Primary Care Provider + Reason for Visit * Reason Comments Hip Pain left hip pain Encounter Details Date Type Department Care Team (Late st Contact Info) Description 10/06/2010 15:00 EDT Office Visit [facility] Sports Medicine Program - [address] [address] Sheldon Veloz Left hip pain (Primary Dx) [...] EDT Sports [facility] [address] [place] [address] CONSULTATION - 10/06/2010 PROBLEMS: Left hip pain. SUBJECTIVE: The patient sent here by Dr Neal for our consultation. 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
--- OUTSIDE RECORDS SUMMARY | 2024-02-17 18:47 | XMS_ITS | Encounter Summary ---
Author Organization [facility] Address [address] [place] [address] Care Team Providers Care Fur Finisher Tailor Name Role Phone Tamara Neal MD Primary Care Provider + Encounter Details Date Type Department Care Team (Late st Contact Info) Description 03/16/2010 Results Only [facility] [phone] Point, Of Care User [address] [place] [address] Social History Tobacco Use Types Packs/Day Years [...] Ketones Trace(A) NEG [facility] Specific [place] 1.025 1.001 - 1.035 [facility] Blood 1+(A) NEG [facility] pH 6.0 4.6 - 8.0 [facility] Protein 1+(A) NEG [facility] Urobilinogen 0.2 0.2 - 1.0 E.U./dl [facility] Nitrite Neg NEG [facility] Leuk Esterase Neg NEG [facility] manager therapy ID [id number] Test performed at [facility] 03/16/2010 8:50 EST 03/16/2010 8:53 EST Of Care User Point POINT OF CARE TEST O RDERABLES [facility] [address] [place] [address] documented in this encounter Visit Diagnoses Not on filedocumented in this encounter Care Teams Fur Finisher Tailor Relationship Specialty Start Date End Date Tamara Neal MD [address] [place] [phone] PCP - General 09/13/08 03/18/13 documented as of this encounter
--- OUTSIDE RECORDS SUMMARY | 2024-02-17 18:47 | XMS_ITS | Encounter Summary ---
Author Organization [facility] Address [address] [place] [address] Care Team Providers Care Automobile Engine Assembler Name Role Phone Tamara Neal MD Primary Care Provider + Reason for Visit * Reason Comments Diabetes 1 mo follow up Back Pain Encounter Details Date Type Department Care Team (Late st Contact Info) Description 02/06/2011 16:45 EDT Office Visit [facility] Family Medicine [address] [phone] Tamara Neal MD [address] [place] [phone] Type 2 diabetes mellitus without (mention of) [...] 11 documented in this encounter Care Teams Automobile Engine Assembler Relationship Specialty Start Date End Date Tamara Neal MD [address] [place] [phone] PCP - General 09/13/08 03/18/13 documented as of this encounter
--- OUTSIDE RECORDS SUMMARY | 2024-02-17 18:47 | XMS_ITS | Encounter Summary ---
Author Organization [facility] Address [address] [place] [address] Care Team Providers Care Assistant Controller Name Role Phone Tamara Neal MD Primary Care Provider + Reason for Visit * Reason Comments Diabetes Hip Pain left hip Encounter Details Date Type Department Care Team (Late st Contact Info) Description 10/02/2010 15:30 EDT Office Visit [facility] Family Medicine [address] [phone] Unknown, Provider, Nini Quach MD [address] [place] [phone] Marisol Veras MD [address] [place] [phone] Chronic pain syndrome (Primary Dx); Diabetes mellitus type II, uncontrolled (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 Coe has prescribed more of dilaudid x 2 weeks [facility] O: BP 134/76 Pulse 100 Wt [...] BID - Patient awaiting appointment to see Last Repairer Helper - Encouraged Exercise Marisol Veras MD Attestation [...] Hydromorphone 8315Reference range: <100 Unit: ng/mL [facility] Morphine Negative Reference range: <100 Unit: ng/mL [facility] Oxycodone Negative Reference range: <100 Unit: ng/mL [facility] Oxymorphone Negative Reference range: <100 Unit: ng/mL This report is intended for use in clinical monitoring and ? management of patients. It is not intended for use in ? employment-relat ed drug testing. ? Performed by: [employer] [place], [address], ? [place] [address], Multiple Punch Press Operator: Rose Lincoln, Ph.D. ? [facility] Urine specimen (specimen) 10/03/2010 16:38 EDT 10/03/2010 20:35 EDT Nini Quach MD URINALYSIS ANI NÚÑEZ [facility] [address] [place] [address] * DRUG SCREEN 6 (10/03/2010 16:38 EDT) [...] Nini Marian Quach MD URINALYSIS ANI NÚÑEZ [facility] Organization Address City/State/[facility] Co de Phone Number [facility] [address] [place] [address] documented in this encounter Visit Diagnoses Diagnosis Chronic pain syndrome- Primary Diabetes mellitus type II, uncontrolled Type II or unspecified type diabetes mellitus without mention of complication, uncontrolled documented in this encounter Care Teams Assistant Controller Relationship Specialty Start Date End Date Tamara Neal MD [address] [place] [phone] PCP - General 09/13/08 03/18/13 documented as of this encounter
--- OUTSIDE RECORDS SUMMARY | 2024-02-17 18:47 | XMS_ITS | Encounter Summary ---
Author Organization [facility] Address [address] [place] [address] Care Team Providers Care Employment Coach Name Role Phone Tamara Neal MD Primary Care Provider + Reason for Visit * Reason Onset Date Comments Results 01/11/2011 Encounter Details Date Type Department Care Team (Late st Contact Info) Description 01/11/2011 Telephone [facility] Spine Program - [address] [place] [address] Marcin Chacko PA-Henri Replaced by [facility] [place] [address] Results Social History Tobacco Use [...] unspecified documented in this encounter Care Teams Employment Coach Relationship Specialty Start Date End Date Tamara Neal MD [address] [place] [phone] PCP - General 09/13/08 03/18/13 documented as of this encounter
--- OUTSIDE RECORDS SUMMARY | 2024-02-17 18:47 | XMS_ITS | Encounter Summary ---
Author Organization [facility] Address [address] [place] [address] Care Team Providers Care Cmm Inspector Name Role Phone Tamara Neal MD Primary Care Provider + Reason for Referral * Consult (Routine) - Closed Specialty Diagnoses / Procedures Referred By Contrachell t Referred To Contact Endocrinology Diagnoses Diabetes mellitus type II, uncontrolled Marisol Veras MD [address] [place] [address] [facility] Endocrinology [address] [place] [address] Referral ID Status Reason Start Date Expiration Date V isits Requested Visits Authorized [id number] Closed Specialty Services Required 09/27/2010 1 1 Question Answer Reason for Request: Poorly controlled type II diabetic. Please debt and budget counselor on diet modifications. * Consult (Routine) - Closed Specialty Diagnoses / Procedures [facility] Referred To Contact Orthopedic Surgery Diagnoses Hip pain Marisol Veras MD [address] [place] [address] [facility] [address] [address] Referral ID Status Reason Start Date Expiration Date V isits Requested Visits Authorized [id number] Closed Specialty Services Required 09/27/2010 1 1 [...] Info) Description 09/27/2010 15:00 EDT Office Visit [facility] - [address] [address] Unknown, Provider, Noemi Funk MD Fromhold, Karen L, MD [address] [place] [address] Diabetes mellitus type II, uncontrolled ([facility]) (Primary Dx); Hip pain Social History Tobacco [...] Clarity, UA No range found Clear Specific [facility] [place] Latest Range: 1.001-1.035 >=1.030 pH Latest Range: [...] Testing Routine Diabetes mellitus type II, uncontrolled ([facility]) Ordered: 09/27/2010 Scheduled Referrals Name Type Priority Associated Diagnoses Orde r Schedule AMB CONSULT ORTHOPEDICS Outpatient Referral Routine Hip pain Ordered: 09/27/2010 AMB CONSULT DIABETES EDUCATION Outpatient Referral Routine Diabetes mellitus type II, uncontrolled ([facility]) Ordered: 09/27/2010 documented as of this encounter Procedures Procedure Name Priority Date/Time Associated Diagnosis Comments HEMOGLOBIN A1C Routine 09/27/2010 15:59 EDT Diabetes mellitus type II, uncontrolled ([facility]) documented in this encounter Results [...] GA S ORDERABLES [facility] [address] [place] [address] documented in this encounter Visit Diagnoses Diagnosis Diabetes mellitus type II, uncontrolled- Primary Type II or unspecified type diabetes mellitus without mention of complication, uncontrolled Hip pain Pain in joint, pelvic region and thigh documented in this encounter Care Teams Cmm Inspector Relationship Specialty Start Date End Date Tamara Neal MD [address] [place] [phone] PCP - General 09/13/08 03/18/13 documented as of this encounter
--- OUTSIDE RECORDS SUMMARY | 2024-02-17 18:47 | XMS_ITS | Encounter Summary ---
Author Organization [facility] Address [address] [place] [address] Care Team Providers Care Commissioned Police Officer Name Role Phone Tamara Neal MD Primary Care Provider + Reason for Visit * Reason Comments Hip Pain Encounter Details Date Type Department Care Team (Late st Contact Info) Description 12/06/2010 8:30 EDT Office Visit [facility] Spine Program - [address] [place] [address] Marcin Chacko PA-C [address] [employer] [facility] [place] [address] Low back pain; Lumbar radiculopathy [...] suggested she be reevaluated at the [facility] for further evaluation. She presents with constant [...] with 20 minutes of our time spent [id number] discussing symptoms, subjective complaints, reviewing her radiographs [...] unspecified documented in this encounter Care Teams Commissioned Police Officer Relationship Specialty Start Date End Date Tamara Neal MD [address] [place] [phone] PCP - General 09/13/08 03/18/13 documented as of this encounter
--- OUTSIDE RECORDS SUMMARY | 2024-02-17 18:47 | XMS_ITS | Encounter Summary ---
Author Organization [facility] Address [address] [place] [address] Care Team Providers Care Extension Service Supervisor Name Role Phone Tamara Neal MD Primary Care Provider + Reason for Visit * Reason Onset Date Comments Other 07/21/2010 Encounter Details Date Type Department Care Team (Late st Contact Info) Description 07/21/2010 Telephone [facility] Family Medicine [address] [phone] Tamara Neal MD [address] [place] [address] [phone] Other Social History Tobacco Use Types Packs/Day [...] on filedocumented in this encounter Care Teams Extension Service Supervisor Relationship Specialty Start Date End Date Tamara Neal MD [address] [place] [phone] PCP - General 09/13/08 03/18/13 documented as of this encounter
--- OUTSIDE RECORDS SUMMARY | 2024-02-17 18:47 | XMS_ITS | Encounter Summary ---
Author Organization [facility] Address [address] [place] [address] Care Team Providers Care Nylon Mender Name Role Phone Tamara Neal MD Primary Care Provider + Reason for Visit * Reason Comments Hip Pain left Encounter Details Date Type Department Care Team (Late st Contact Info) Description 01/02/2011 15:30 EDT Office Visit [facility] Sports Medicine Program - [address] [address] Alberto Moffett MD [address] [place] [phone] Left hip pain (Primary Dx) Social [...] EDT Sports Medicine Service [facility] [address] [place] [address] PROGRESS/FOLLOWUP NOTE - 01/02/2011 PROBLEM: Left [...] - JG Job ID: SM Doc ID: [id number] Ext Doc ID: [id number] cc: Tamara Neal MD * Alberto Moffett MD - 01/02/2011 1754 EDT This office note has been dictated. documented in this encounter Plan of Treatment Not on file documented as of this encounter Visit Diagnoses Diagnosis Left hip pain- Primary Pain in joint, pelvic region and thigh documented in this encounter Care Teams Nylon Mender Relationship Specialty Start Date End Date Tamara Neal MD [address] [place] [phone] PCP - General 09/13/08 03/18/13 documented as of this encounter
--- OUTSIDE RECORDS SUMMARY | 2024-02-17 18:47 | XMS_ITS | Encounter Summary ---
Author Organization [facility] Address [address] [place] [address] Care Team Providers Care Adhesion Tester Name Role Phone Tamara Neal MD Primary Care Provider + Reason for Visit * Reason Comments MEDICATION CHECK Facial Pain Pt thinks she has a sinus infection Encounter Details Date Type Department Care Team (Late st Contact Info) Description 11/14/2010 16:30 EDT Office Visit [facility] Medicine [address] [address] Tamara Neal MD [address] [place] [phone] Chronic pain syndrome (Primary Dx); Left hip [...] documented as of this encounter Care Teams Adhesion Tester Relationship Specialty Start Date End Date Tamara Neal MD [address] [place] [phone] PCP - General 09/13/08 03/18/13 documented as of this encounter
--- OUTSIDE RECORDS SUMMARY | 2024-02-17 18:48 | XMS_ITS | Encounter Summary ---
Author Organization [facility] Address [address] [place] [address] Care Team Providers Care Accessories Repairer Name Role Phone Tamara Neal MD Primary Care Provider + Encounter Details Date Type Department Care Team (Late st Contact Info) Description 01/31/2010 Documentation Visit [facility] [place] [address] Arnol Redding, PT [address] [place] [address] Social History Tobacco Use Types [...] PT - 01/31/2010 1126 EDT REHABILITATION THERAPIES [address] [address] Phone: [phone] Fax: [phone] Physical Therapy Discontinue/Discharge Note Date: 01/31/2010 Reason [...] on filedocumented in this encounter Care Teams Accessories Repairer Relationship Specialty Start Date End Date Tamara Neal MD [address] [place] [phone] PCP - General 09/13/08 03/18/13 documented as of this encounter
--- OUTSIDE RECORDS SUMMARY | 2024-02-17 18:48 | XMS_ITS | Encounter Summary ---
Author Organization [facility] Address [address] [place] [address] Care Team Providers Care Technical Inspector Name Role Phone Tamara Neal MD Primary Care Provider + Reason for Referral * Consult (Routine) - Closed Specialty Diagnoses / Procedures [facility] Referred To Contact Pain Medicine Diagnoses Low back pain Lumbar radiculopathy Marcin Chacko PA-C [address] [place] [phone] [facility] [address] [place] [address] Referral ID Status Reason Start Date Expiration Date V isits Requested Visits Authorized [id number] Closed Specialty Services Required 01/03/2010 1 1 Question Answer Reason for Request: TFESI L4-5 on the left Reason for Visit * Reason Onset Date Comments Follow-up 12/30/2009 Encounter Details Date Type Department Care Team (Late st Contact Info) Description 12/30/2009 Telephone [facility] Spine Program [place] [address] Marcin Chacko PA-C [address] [place] [phone] Follow-up Social History Tobacco Use Types [...] 01/26 until 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
--- OUTSIDE RECORDS SUMMARY | 2024-02-17 18:48 | XMS_ITS | Encounter Summary ---
Author Organization [facility] Address [address] [place] [address] Care Team Providers Care Assistant Professor Of Business Name Role Phone Tamara Neal MD Primary Care Provider + Encounter Details Date Type Department Care Team (Late st Contact Info) Description 06/09/[address] [facility] Medicine - [address] [address] Tamara Neal MD [address] [place] [phone] Routine general medical examination at health care [...] 09/28/2009 added in this encounter Care Teams Assistant Professor Of Business Relationship Specialty Start Date End Date Tamara Neal MD [address] [place] [phone] PCP - General 09/13/08 03/18/13 documented as of this encounter
--- OUTSIDE RECORDS SUMMARY | 2024-02-17 18:48 | XMS_ITS | Encounter Summary ---
Author Organization [facility] Address [address] [place] [address] Care Team Providers Care Marriage Therapist Name Role Phone Tamara Neal MD Primary Care Provider + Reason for Visit * Reason Comments [facility] Encounter Details Date Type Department Care Team (Late st Contact Info) Description 08/15/2009 15:45 EDT Office Visit [facility] Family Medicine [address] [address] aHim Angulo MD Back pain (Primary Dx) Social [...] pain with lower extremity radiation. Seen at [facility] yesterday but records not available for review. [...] Hopefully records of exam and imaging from [facility] will be available at that visit. documented [...] 08/15/2009 added in this encounter Care Teams Marriage Therapist Relationship Specialty Start Date End Date Tamara Neal MD [address] [place] [phone] PCP - General 09/13/08 03/18/13 documented as of this encounter
--- OUTSIDE RECORDS SUMMARY | 2024-02-17 18:48 | XMS_ITS | Encounter Summary ---
Author Organization [facility] Address [address] [place] [address] Care Team Providers Care Hose Stripper Name Role Phone Madelyn Neal MD Primary Care Provider + Encounter Details Date Type Department Care Team (Latest Contact Info) Description 11/23/2009 10:40 EDT - 11/23/2009 23:59 EDT Hospital Encounter [facility] Interventional Pain [address] [place] [address] Geronimo Torres, DO [address] [facility] [address] [place] [phone] Discharge Disposition: Home or Self [...] 70 - 100 mg/dl [facility] Recenterer ID [id number] Test Performed by Nursing Services [facility] 11/25/2009 10:4 9 EDT 11/25/2009 10:55 EDT Antoine Mendez MD CHEMISTRY & BLOOD GA S ORDERABLES [facility] [address] [place] [address] * SURGICAL PATHOLOGY (11/25/2009 0:00 EDT) Pathology Report: SURGICAL PATHOLOGY REPORT ? Reports generated via electronic interface contain original data; ? however they are lacking the format of the original report. ? Caution should be taken when reading/interpreti ng unformatted reports. ? Name: ? HILDA CROWLEY ? Accession #: ? [id number] ? : ? 1975 (Age: 34) ??F [...] Description: ? 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 She is . [...] Torres DO - Geronimo Torres DO - [facility] Job ID: SM Doc ID: [id number] Ext Doc ID: [id number] cc: BASILIO Hammond documented in this encounter Care Teams Hose Stripper Relationship Specialty Start Date End Date Madelyn Neal MD [address] [place] [phone] PCP - General 09/13/08 03/18/13 documented as of this encounter
--- OUTSIDE RECORDS SUMMARY | 2024-02-17 18:48 | XMS_ITS | Encounter Summary ---
Author Organization [facility] Address [address] [place] [address] Care Team Providers Care Lead Systems Analyst Name Role Phone Tamara Neal MD Primary Care Provider + Reason for Visit * Reason Onset Date Comments Referral Request 09/14/2009 U/S Abdomen Encounter Details Date Type Department Care Team (Late st Contact Info) Description 09/14/2009 Orders Only [facility] Family Medicine [address] [address] Tamara Neal MD [address] [place] [phone] Lumbago (Primary Dx) Social History Tobacco Use [...] Primary documented in this encounter Care Teams Lead Systems Analyst Relationship Specialty Start Date End Date Tamara Neal MD [address] [place] [phone] PCP - General 09/13/08 03/18/13 documented as of this encounter
--- OUTSIDE RECORDS SUMMARY | 2024-02-17 18:48 | XMS_ITS | Encounter Summary ---
Author Organization [facility] Address [address] [place] [address] Care Team Providers Care Advanced Nursing Professor Name Role Phone Tamara Neal MD Primary Care Provider + Reason for Referral * Consult (Routine) - Closed Specialty Diagnoses / Procedures Referred By Savannah ashton Referred To Contact General Surgery Diagnoses Gallstone Tamara Neal MD [address] [place] [phone] Referral ID Status Reason Start Date Expiration Date V isits Requested Visits Authorized [id number] Closed Specialty Services Required 10/04/2009 1 1 Question Answer Reason for Request: Cholelithiasis, fatty liver Reason for Visit * Reason Comments Back Pain f/u appt. Encounter Details Date Type Department Care Team (Late st Contact Info) Description 10/04/2009 16:45 EDT Office Visit [facility] Family Medicine [address] [address] Tamara Neal MD [address] [place] [phone] LBP (low back pain); Herniated disc; [...] [facility] Comment:Performed at [facility] [employer] [facility], [place], [place] Blood specimen (specimen) 10/10/2009 7:41 EDT 10/10/2009 7:43 EDT Tamara Neal MD HEMATOLOGY & PF4 ORDERABLES [facility] [address] [place] [address] * HEMOGLOBIN A1C (10/10/2009 7:41 EDT) Hemoglobin [...] D GAS ORDERABLES [facility] [address] [place] [address] * (ABNORMAL) COMPREHENSIVE METABOLIC PANEL (10/10/2009 7:41 EDT) Pathologist [facility] Potassium 4.1 3.5 - 5.0 mEq/L [facility] [...] [facility] Fasting? Yes Performed at [facility], [place], [place] [facility] Blood specimen (specimen) 10/10/2009 7:41 EDT 10/10/2009 7:43 EDT Tamara Neal MD CHEMISTRY & BLOO D GAS ORDERABLES [facility] [address] [place] [address] documented in this encounter Visit Diagnoses Diagnosis LBP (low back pain) Lumbago Herniated disc Displacement of intervertebral disc, site unspecified, without myelopathy Gallstone Calculus of gallbladder without mention of cholecystitis or obstruction Diabetes ([facility]) Type II or unspecified type diabetes [...] documented as of this encounter Care Teams Advanced Nursing Professor Relationship Specialty Start Date End Date Tamara Neal MD [address] [place] [phone] PCP - General 09/13/08 03/18/13 documented as of this encounter
--- OUTSIDE RECORDS SUMMARY | 2024-02-17 18:48 | XMS_ITS | Encounter Summary ---
Author Organization [facility] Address [address] [place] [address] Care Team Providers Care Impregnator [employer] Products Name Role Phone Tamara Neal MD Primary Care Provider + Reason for Visit * Reason Comments Anxiety Depression Sinusitis post nasal drip;coug h Encounter Details Date Type Department Care Team (Late st Contact Info) Description 06/14/2009 17:00 EST Office Visit [facility] Medicine [address] [address] Tamara Neal MD [address] [place] [phone] Anxiety; Insomnia Social History Tobacco Use Types [...] 06/14/2009 added in this encounter Care Teams Imp[employer]ator [employer] Relationship Specialty Start Date End Date Tamara Neal MD [address] [place] [phone] PCP - General 09/13/08 03/18/13 documented as of this encounter
--- OUTSIDE RECORDS SUMMARY | 2024-02-17 18:48 | XMS_ITS | Encounter Summary ---
Author Organization [facility] Address [address] [place] [address] Care Team Providers Care Mascara Molder Name Role Phone Tamara Neal MD Primary Care Provider + Reason for Referral * Consult, Test and Treat (Routine) - Closed Specialty Diagnoses / Procedures Referred By Contac t Referred To Contact Physical Therapy / Rehab Therapies Diagnoses Low back pain Arlene Aly MD [address] [place] [phone] Referral ID Status Reason Start Date Expiration Date V isits Requested Visits Authorized [id number] Closed Specialty Services Required 09/12/2009 1 1 Question Answer Reason for Request: low back pain x 1 month, left foot weakness with dorsiflexion, MRI pending * Consult (Routine) - Closed Specialty Diagnoses / Procedures Referred By Contac t Referred To Contact Orthopedic Surgery Diagnoses Low back pain Arlene Aly MD [address] [place] [phone] [facility] [place] [address] [place] [address] Referral ID Status Reason Start Date Expiration Date V isits Requested Visits Authorized [id number] Closed Specialty Services Required 09/12/2009 1 1 Question Answer Reason for Request: low back pain, MRI ordered, left foot weakness with dorsiflexion Reason for Visit * Reason Comments Back Pain Pt notes increasing pain in lower back. x-rays were completed and would like to know results Encounter Details Date Type Department Care Team (Late st Contact Info) Description 09/12/2009 16:00 EDT Office Visit [address] [address] Unknown, Provider, Arlene Aly MD [address] [place] [address] [address] [place] [phone] Low back pain (Primary Dx) [...] likely not work with the patient in [place] until MRI results back; also will get [...] documented as of this encounter Care Teams Mascara Molder Relationship Specialty Start Date End Date Tamara Neal MD [address] [place] [phone] PCP - General 09/13/08 03/18/13 documented as of this encounter
--- OUTSIDE RECORDS SUMMARY | 2024-02-17 18:48 | XMS_ITS | Encounter Summary ---
Author Organization 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
--- OUTSIDE RECORDS SUMMARY | 2024-02-17 18:48 | XMS_ITS | Encounter Summary ---
Author Organization [facility] Address [address] [place] [address] Care Team Providers Care Guest Associate Name Role Phone Tamara Neal MD Primary Care Provider + Reason for Visit * Reason Onset Date Comments Medications Refill 12/27/2009 Encounter Details Date Type Department Care Team (Late st Contact Info) Description 12/27/2009 Refill [facility] Family Medicine [address] [address] Tamara Neal MD [address] [place] [phone] Medications Refill Social History Tobacco Use Types [...] as of this encounter Care Teams Guest Associate Relationship Specialty Start Date End Date Tamara Neal MD [address] [place] [phone] PCP - General 09/13/08 03/18/13 documented as of this encounter
--- OUTSIDE RECORDS SUMMARY | 2024-02-17 18:48 | XMS_ITS | Encounter Summary ---
Author Organization [facility] Address [address] [place] [address] Care Team Providers Care Custom Tailor Name Role Phone Tamara Neal MD Primary Care Provider + Encounter Details Date Type Department Care Team (Latest Contact Info) Description 10/14/2009 14:00 EDT - 10/14/2009 23:59 EDT Hospital Encounter [facility] [phone] Tamara Neal MD [address] [place] [phone] Discharge Disposition: Home or Self Care Social [...] filedocumented in this encounter Care Teams Custom Tailor Relationship Specialty Start Date End Date Tamara Neal MD [address] [place] [phone] PCP - General 09/13/08 03/18/13 documented as of this encounter
--- OUTSIDE RECORDS SUMMARY | 2024-02-17 18:48 | XMS_ITS | Encounter Summary ---
Author Organization [facility] Address [address] [place] [address] Care Team Providers Care Senior Java Software Developer Name Role Phone Tamara Neal MD Primary Care Provider + Reason for Visit * Reason Onset Date Comments Medications Refill 11/03/2009 Encounter Details Date Type Department Care Team (Late st Contact Info) Description 11/03/2009 Refill [facility] Family Medicine [address] [address] Tamara Neal MD [address] [place] [phone] Medications Refill Social History Tobacco Use Types [...] as of this encounter Care Teams Senior Java Software Developer Relationship Specialty Start Date End Date Tamara Neal MD [address] [place] [phone] PCP - General 09/13/08 03/18/13 documented as of this encounter
--- OUTSIDE RECORDS SUMMARY | 2024-02-17 18:48 | XMS_ITS | Encounter Summary ---
Author Organization [facility] Address [address] [place] [address] Care Team Providers Care Staff Respiratory Therapist Name Role Phone Tamara Neal MD Primary Care Provider + Encounter Details Date Type Department Care Team (Late st Contact Info) Description 11/01/2009 Abstract [facility] Endocrinology - [address] [address] Tamara Neal MD [address] [place] [phone] Social History Tobacco Use Types Packs/Day Years [...] filedocumented in this encounter Care Teams Staff Respiratory Therapist Relationship Specialty Start Date End Date Tamara Neal MD [address] [place] [phone] PCP - General 09/13/08 03/18/13 documented as of this encounter
--- OUTSIDE RECORDS SUMMARY | 2024-02-17 18:48 | XMS_ITS | Encounter Summary ---
Author Organization [facility] Address [address] [place] [address] Care Team Providers Care Social Work Assistant Name Role Phone Tamara Neal MD Primary Care Provider + Reason for Visit * Reason Onset Date Comments Medication Problem 06/15/2009 Encounter Details Date Type Department Care Team (Late st Contact Info) Description 06/15/2009 Refill [facility] Family Medicine - [address] [phone] Tamara Neal MD [address] [place] [phone] Medication Problem Social History Tobacco Use Types [...] patients chart. * Telephone Encounter - Mikki Dorado - 06/15/[address] Neal prescribed Citalopram 20mg 2BID Qty: 30 with 5-Refills. Pharmacy called and we changed quantity to #60 but this needs to be documented in prism. documented in this encounter Plan of Treatment Not on file documented as of this encounter Visit Diagnoses Not on filedocumented in this encounter Care Teams Social Work Assistant Relationship Specialty Start Date End Date Tamara Neal MD [address] [place] [phone] PCP - General 09/13/08 03/18/13 documented as of this encounter
--- OUTSIDE RECORDS SUMMARY | 2024-02-17 18:48 | XMS_ITS | Encounter Summary ---
Author Organization [facility] Address [address] [place] [address] Care Team Providers Care Applications Engineering Manager Name Role Phone Tamara Neal MD Primary Care Provider + Encounter Details Date Type Department Care Team (Late st Contact Info) Description 09/13/2008 11:34 EDT - 09/13/2008 23:59 EDT Hospital Encounter [facility] - [address] [address] Chiquita Ceron MD [address] [place] [phone] Discharge Disposition: Auto Discharge Social History Tobacco [...] Souza MD MICROBIOLOGY - NERAL ORDERABLES [facility] [address] [place] [address] documented in this encounter Visit Diagnoses Not on filedocumented in this encounter Care Teams Applications Engineering Manager Relationship Specialty Start Date End Date Tamara Neal MD [address] [place] [phone] PCP - General 09/13/08 03/18/13 documented as of this encounter
--- OUTSIDE RECORDS SUMMARY | 2024-02-17 18:48 | XMS_ITS | Encounter Summary ---
Author Organization [facility] Address [address] [place] [address] Care Team Providers Care Painting And Coating Worker Name Role Phone Tamara Neal MD Primary Care Provider + Encounter Details Date Type Department Care Team (Latest Contact Info) Description 09/23/2009 13:15 EDT - 09/23/2009 23:59 EDT Hospital Encounter [facility] [place] [address] Nini Quach MD [address] [place] [phone] Discharge Disposition: Home or Self Care [...] filedocumented in this encounter Care Teams Painting And Coating Worker Relationship Specialty Start Date End Date Tamara Neal MD [address] [place] [phone] PCP - General 09/13/08 03/18/13 documented as of this encounter
--- OUTSIDE RECORDS SUMMARY | 2024-02-17 18:48 | XMS_ITS | Encounter Summary ---
Author Organization [facility] Address [address] [place] [address] Care Team Providers Care Records Management Technician Name Role Phone Unavailable Primary Care Provider Unavailabl e Encounter Details Date Type Department Care Team (Latest Contact Info) Description 06/10/2008 10:53 EST - 06/10/2008 11:59 EST Hospital Encounter [facility] - Maple conversion [address] [place] [address] Riky Garber MD Graham, Michael S, MD [address] [phone] Discharge Disposition: Auto Discharge Social History Tobacco [...]
--- OUTSIDE RECORDS SUMMARY | 2024-02-17 18:48 | XMS_ITS | Encounter Summary ---
Author Organization [facility] Address [address] [place] [address] Care Team Providers Care Senior Chemical Engineer Name Role Phone Tamara Neal MD Primary Care Provider + Reason for Visit * Reason Comments Neck Pain Encounter Details Date Type Department Care Team (Late st Contact Info) Description 08/11/2009 9:00 EDT Office Visit [facility] Family Medicine [address] [address] Unknown, Provider, Noemi Funk MD Holmes, Lewis B, MD MPH [address] [place] [phone] Neck pain (Primary Dx) Social History [...] Cervicalgia documented in this encounter Care Teams Senior Chemical Engineer Relationship Specialty Start Date End Date Tamara Neal MD [address] [place] [phone] PCP - General 09/13/08 03/18/13 documented as of this encounter
--- OUTSIDE RECORDS SUMMARY | 2024-02-17 18:48 | XMS_ITS | Encounter Summary ---
Author Organization [facility] Address [address] [place] [address] Care Team Providers Care Milk Collector Name Role Phone Tamara Neal MD Primary Care Provider + Reason for Visit * Reason Comments Back Pain Encounter Details Date Type Department Care Team (Late st Contact Info) Description 08/22/2009 16:30 EDT Office Visit [facility] Family Medicine [address] [address] Unknown, Provider, Gilberto Kaufman MD MPH [address] [place] [phone] Yee Sweeney MD [address] [place] [phone] Back pain (Primary Dx) Social History [...] Seen in the ED on 08/14 at [facility]. Seen by Dr Angulo 08/15. Has [...] 09/28/2009 added in this encounter Care Teams Milk Collector Relationship Specialty Start Date End Date Tamara Neal MD [address] [place] [phone] PCP - General 09/13/08 03/18/13 documented as of this encounter
--- OUTSIDE RECORDS SUMMARY | 2024-02-17 18:48 | XMS_ITS | Encounter Summary ---
Author Organization [facility] Address [address] [place] [address] Care Team Providers Care Wood Cabinet Finisher Name Role Phone Tamara Neal MD Primary Care Provider + Encounter Details Date Type Department Care Team (Latest Contact Info) Description 09/12/2009 7:45 EDT - 09/12/2009 23:59 EDT Hospital Encounter [facility] [address] [place] [address] Tamara Neal MD [address] [place] [phone] Discharge Disposition: Auto Discharge Social History Tobacco [...] filedocumented in this encounter Care Teams Wood Cabinet Finisher Relationship Specialty Start Date End Date Tamara Neal MD [address] [place] [phone] PCP - General 09/13/08 03/18/13 documented as of this encounter
--- OUTSIDE RECORDS SUMMARY | 2024-02-17 18:48 | XMS_ITS | Encounter Summary ---
Author Organization [facility] Address [address] [place] [address] Care Team Providers Care Stevedore Dock Name Role Phone Tamara Neal MD Primary Care Provider + Reason for Visit * Reason Onset Date Comments Medications Refill 10/19/2009 Encounter Details Date Type Department Care Team (Late st Contact Info) Description 10/19/2009 Refill [facility] Family Medicine [address] [address] Tamara Neal MD [address] [place] [phone] Medications Refill Social History Tobacco Use Types [...] documented as of this encounter Care Teams Stevedore Dock Relationship Specialty Start Date End Date Tamara Neal MD [address] [place] [phone] PCP - General 09/13/08 03/18/13 documented as of this encounter
--- OUTSIDE RECORDS SUMMARY | 2024-02-17 18:48 | XMS_ITS | Encounter Summary ---
Author Organization [facility] Address [address] [place] [address] Care Team Providers Care Supervisor Drying And Softening Name Role Phone Tamara Neal MD Primary Care Provider + Reason for Visit * Reason Onset Date Comments Follow-up 01/05/2010 Encounter Details Date Type Department Care Team (Late st Contact Info) Description 01/05/2010 Telephone [facility] Spine Program - [address] [place], [place] [phone] Marcin Chacko PA-C [address] [place] [phone] Follow-up Social History Tobacco Use [...] encounter Miscellaneous Notes * Telephone Encounter - Kiaa Downing - 01/05/2010 0934 EDT Injection has been approved by [facility]. Pt will have Injections on 01/30 and F/U with Dr. Orosco on 02/13. documented in this encounter Plan of Treatment Not on file documented as of this encounter Visit Diagnoses Not on filedocumented in this encounter Care Teams Supervisor Drying And Softening Relationship Specialty Start Date End Date Tamara Neal MD [address] [place] [phone] PCP - General 09/13/08 03/18/13 documented as of this encounter
--- OUTSIDE RECORDS SUMMARY | 2024-02-17 18:48 | XMS_ITS | Encounter Summary ---
Author Organization [facility] Address [address] [place] [address] Care Team Providers Care Psychological Tests Sales Agent Name Role Phone Tamara Neal MD Primary Care Provider + Reason for Visit * Reason Onset Date Comments Medications Refill 11/07/2009 Encounter Details Date Type Department Care Team (Late st Contact Info) Description 11/07/2009 Refill [facility] Family Medicine [address] [address] Tamara Neal MD [address] [place] [phone] Medications Refill Social History Tobacco Use Types [...] documented as of this encounter Care Teams Psychological Tests Sales Agent Relationship Specialty Start Date End Date Tamara Neal MD [address] [place] [phone] PCP - General 09/13/08 03/18/13 documented as of this encounter
--- OUTSIDE RECORDS SUMMARY | 2024-02-17 18:48 | XMS_ITS | Encounter Summary ---
Author Organization [facility] Address [address] [place] [address] Care Team Providers Care Shingle Packer Name Role Phone Tamara Neal MD Primary Care Provider + Reason for Visit * Reason Onset Date Comments Medications Refill 09/28/2009 Encounter Details Date Type Department Care Team (Late st Contact Info) Description 09/28/2009 Refill [facility] Family Medicine [address] [address] Tamara Neal MD [address] [place] [phone] Medications Refill Social History Tobacco Use Types [...] documented as of this encounter Care Teams Shingle Packer Relationship Specialty Start Date End Date Tamara Neal MD [address] [place] [phone] PCP - General 09/13/08 03/18/13 documented as of this encounter
--- OUTSIDE RECORDS SUMMARY | 2024-02-17 18:48 | XMS_ITS | Encounter Summary ---
Author Organization [facility] Address [address] [place] [address] Care Team Providers Care Cord Tire Builder Name Role Phone Tamara Neal MD Primary Care Provider + Reason for Visit * Reason Onset Date Comments Medications Refill 01/16/2010 Encounter Details Date Type Department Care Team (Late st Contact Info) Description 01/16/2010 Refill [facility] Family Medicine [address] [address] Tamara Neal MD [address] [place] [phone] Medications Refill Social History Tobacco Use Types [...] documented as of this encounter Care Teams Cord Tire Builder Relationship Specialty Start Date End Date Tamara Neal MD [address] [place] [phone] PCP - General 09/13/08 03/18/13 documented as of this encounter
--- OUTSIDE RECORDS SUMMARY | 2024-02-17 18:48 | XMS_ITS | Encounter Summary ---
Author Organization [facility] Address [address] [place] [address] Care Team Providers Care Guillotine Operator Name Role Phone Tamara Neal MD Primary Care Provider + Encounter Details Date Type Department Care Team (Latest Contact Info) Description 10/10/2009 7:39 EDT - 10/10/2009 23:59 EDT Hospital Encounter [facility] [address] [place] [address] Tamara Neal MD [address] [place] [phone] Gallstone; Diabetes ([facility]) ([facility]) Discharge Disposition: Home or Self Care Social [...] A1C Routine 10/10/2009 7:41 EDT Diabetes (CMS-HCC) ([facility]) COMPREHENSIVE METABOLIC PANEL (CMP) Routine 10/10/2009 7:41 [...] [facility] Comment:Performed at [facility], [place], [place] Blood specimen (specimen) 10/10/2009 7:41 EDT 10/10/2009 7:43 EDT Tamara Neal MD HEMATOLOGY & PF4 ORDERABLES Performing Organization Address [facility] de Phone Number [facility] [address] [place] [address] * HEMOGLOBIN A1C (10/10/2009 7:41 EDT) Hemoglobin [...] BLOO D GAS ORDERABLES Performing Organization Address [facility] Co de Phone Number [facility] [address] [place] [address] * (ABNORMAL) COMPREHENSIVE METABOLIC PANEL (10/10/2009 7:41 EDT) Potassium 4.1 3.5 - 5.0 mEq/L [facility] Sodium 139 136 - 145 mEq/L [facility] Chloride 100 96 - 110 mEq/L [facility] CO2 27 24 - 32 mEq/L [facility] Total Alkaline Phosphatase 95 38 - 126 U/L [facility] Bilirubin, Total 0.7 0.2 - [...] [facility] Fasting? Yes Performed at [facility] Blood specimen (specimen) 10/10/2009 7:41 EDT 10/10/2009 7:43 EDT Tamara Neal MD CHEMISTRY & BLOO D GAS ORDERABLES [facility] [address] [place] [address] documented in this encounter Visit Diagnoses Diagnosis Gallstone Calculus of gallbladder without mention of cholecystitis or obstruction Diabetes ([facility]) Type II or unspecified type diabetes mellitus without mention of complication, not stated as uncontrolled documented in this encounter Care Teams Guillotine Operator Relationship Specialty Start Date End Date Tamara Neal MD [address] [place] [phone] PCP - General 09/13/08 03/18/13 documented as of this encounter
--- OUTSIDE RECORDS SUMMARY | 2024-02-17 18:48 | XMS_ITS | Encounter Summary ---
Author Organization [facility] Address [address] [place] [address] Care Team Providers Care Women'S Activities Adviser Name Role Phone Tamara Neal MD Primary Care Provider + Reason for Visit * Reason Onset Date Comments Back Pain 09/09/2009 Encounter Details Date Type Department Care Team (Late st Contact Info) Description 09/09/2009 Telephone [facility] Family Medicine - [address] [phone] Tamara Neal MD [address] [place] [phone] Back Pain Social History Tobacco Use Types [...] Encounter - Awilda Fang RN - 09/12/2009 0875 EDT Pt called. Has been having ongoing back pain for a month. Seen by Dr. Neal 09/06/09 who put her on prednisone taper. Pt currently on 40 mg daily. Back pain is getting worse. Pt rates pain at an 8. She is taking oxycodone 5 mg q4hrs and flexeril. Had back x-rays done this morning at [facility]. Appointment given with Dr. Aly 09/12/09 4:00. [...] on filedocumented in this encounter Care Teams Women'S Activities Adviser Relationship Specialty Start Date End Date Tamara Neal MD [address] [place] [phone] PCP - General 09/13/08 03/18/13 documented as of this encounter
--- OUTSIDE RECORDS SUMMARY | 2024-02-17 18:48 | XMS_ITS | Encounter Summary ---
Author Organization [facility] Address [address] [place] [address] Care Team Providers Care Digital Marketing Officer Name Role Phone Tamara Neal MD Primary Care Provider + Encounter Details Date Type Department Care Team (Late st Contact Info) Description 11/25/2009 9:49 EDT - 11/25/2009 17:02 EDT Hospital Encounter [facility] Perioperative Services- [address] [phone] Ron Mendez MD [address] [place] [address], [address] [place] [phone] Discharge Disposition: Home or Self [...] Dr. Mendez in 2 weeks. Please call [phone] for an appointment. Follow-up Services Contacted at [...] instructions reviewed. * Mame Ludwig - 11/25/2009 4914 EDT Post Anesthesia Evaluation Date of Service: [...] Yes * Ayla Ulloa RN - 11/09/2009 1545 EDT .preop documented in this encounter H&P [...] liver biopsy. SURGEON: Ron Mendez MD FACS LEATHER REPAIRER: Andrew Meyer MD ANESTHESIA: General endotracheal. INDICATIONS: [...] placed into the abdominal cavity using the [employer] Bio-sensing device. We then placed the other trocars [...] and no drains retained. Dictated by: Ron Mnedez MD, FACS Ron Mendez MD, FACS 01 43 PM / [facility] Confirmation: [id number] Dictation ID: [id number] cc:Andrew Neal MD documented in this encounter Miscellaneous Notes * Scanned Note-Null - Inpatient, Physician - 11/30/2009 1018 EDT * Scanned Note-Null - Inpatient, Physician - 11/30/2009 1018 EDT * Brief Op Note - Andrew Meyer MD - 11/25/2009 1353 EDT BRIEF OP NOTE Preop dx: biliary colic Postop dx: biliary colic Procedure: Laproscopic Cholecystectomy with Cholangiogram and liver biopsy Surgeon: Andrea Product Development Worker: Princess Meyer MS III, Fabian MS II Anesth: GETA Findings: Non-gangrenous gallbladder and fatty appearing liver. Biliary tree was visualized with cholangiogram with no filling defects EBL: minimal IVF: 120 cc UOP: No decker, Not measured Specimen: core liver biopsy Cultures: None Foreign Material Retained: None Complications: None Dispo: To PACU in stable condition ANDREW MEYER MD Pager # [phone] documented in this encounter Plan of Treatment [...] - Comment: pain 5/10 charge nurse for band saw operator)1503 (Given - Provider: Tamara Rousseau RN - [...] 11/25/2009 documented in this encounter Care Teams Digital Marketing Officer Relationship Specialty Start Date End Date Tamara Neal MD [address] [place] [phone] PCP - General 09/13/08 03/18/13 documented as of this encounter
--- OUTSIDE RECORDS SUMMARY | 2024-02-17 18:48 | XMS_ITS | Encounter Summary ---
Author Organization [facility] Address [address] [place] [address] Care Team Providers Care Rope Twisting Machine Operator Name Role Phone Unavailable Primary Care Provider Unavailabl e Encounter Details Date Type Department Care Team (Latest Contact Info) Description 05/20/2008 9:02 EST - 05/20/2008 11:59 EST Hospital Encounter [facility] - Maple conversion [address] [place] [address] Riky Garber MD Felemegos, Ioannis Y, MD [address] [place] [phone] Discharge Disposition: Auto Discharge Social History Tobacco [...] AND SER OLOGY ORDERABLES Performing Organization Address [facility] de Phone Number [facility] [address] [place] [address] * VARICELLA IGG ANTIBODY (05/20/2008 13:45 EST) Varicella IgG Ab Positive [facility] 05/20/2008 13:4 5 EST 05/20/2008 13:48 EST Nurse Employee Health IMMUNOLOGY AND SER OLOGY ORDERABLES Performing Organization Address [facility] de Phone Number [facility] [address] [place] [address] * HEPATITIS B SURFACE ANTIBODY (05/20/2008 13:45 EST) Hepatitis B Surface Ab Positive Reference Range: ??Negative Interpretati on depends on clinical setting. [facility] 05/20/2008 13:4 5 EST 05/20/2008 13:48 EST Nurse Employee Health CHEMISTRY & BLOOD GAS ORDERABLES Performing Organization Address [facility] de Phone Number [facility] [address] [place] [address] documented in this encounter Visit Diagnoses Not on filedocumented in this encounter
--- OUTSIDE RECORDS SUMMARY | 2024-02-17 18:48 | XMS_ITS | Encounter Summary ---
Author Organization [facility] Address [address] [place] [address] Care Team Providers Care Hall Monitor Name Role Phone Tamara Neal MD Primary Care Provider + Encounter Details Date Type Department Care Team (Latest Contact Info) Description 11/14/2009 7:16 EDT - 11/14/2009 23:59 EDT Hospital Encounter [address] [address] Tamara Neal MD [address] [place] [phone] Discharge Disposition: Home or Self Care Social [...] on filedocumented in this encounter Care Teams Hall Monitor Relationship Specialty Start Date End Date Tamara Neal MD [address] [place] [phone] PCP - General 09/13/08 03/18/13 documented as of this encounter
--- OUTSIDE RECORDS SUMMARY | 2024-02-17 18:48 | XMS_ITS | Encounter Summary ---
Author Organization [facility] Address [address] [place] [address] Care Team Providers Care Monogram Maker Name Role Phone Unavailable Primary Care Provider Unavailabl e Encounter Details Date Type Department Care Team (Late st Contact Info) Description 08/11/2008 13:35 EDT Hospital Encounter [facility] - Maple conversion [address] [place] [address] Selvin Hinson MD [address] [phone] Social History Tobacco Use Types Packs/Day Years [...] Component Type 2 diabetes mellitus ([facility]) 8.7(07/07/2015 5:05 EST) No Annmarie Vigil documented as of this encounter Visit Diagnoses Not on filedocumented in this encounter Additional Health Concerns Infection Onset Date Last Indicated Resolved Time MRSA Comment:IP note: risk factors - DM, obesity Pos sinus 06/30/17 M Chito 07/01/17 07/01/2017 07/01/2017 documented as of this encounter
--- OUTSIDE RECORDS SUMMARY | 2024-02-17 18:48 | XMS_ITS | Encounter Summary ---
Author Organization [facility] Address [address] [place] [address] Care Team Providers Care Finance Admin Name Role Phone Tamara Neal MD Primary Care Provider + Reason for Visit * Reason Onset Date Comments Blood Sugar Problem 10/14/2009 Encounter Details Date Type Department Care Team (Late st Contact Info) Description 10/14/2009 Telephone [facility] Family Medicine - [address] [address] Tamara Neal MD [address] [place] [phone] Blood Sugar Problem Social History Tobacco Use [...] Encounter - Tamara Neal MD - 10/15/2009 1052 EDT It can also wait until i return and we can discuss at [facility]. * Telephone Encounter - Santa Guerrero RN - 10/15/2009 0901 EDT THE issue was addressed in a [...] on filedocumented in this encounter Care Teams Finance Admin Relationship Specialty Start Date End Date Tamara Neal MD [address] [place] [phone] PCP - General 09/13/08 03/18/13 documented as of this encounter
--- OUTSIDE RECORDS SUMMARY | 2024-02-17 18:48 | XMS_ITS | Encounter Summary ---
Author Organization [facility] Address [address] [place] [address] Care Team Providers Care Housekeeping Room Inspector Name Role Phone Tamara Neal MD Primary Care Provider + Reason for Visit * Reason Onset Date Comments Medications Refill 11/16/2009 Encounter Details Date Type Department Care Team (Late st Contact Info) Description 11/16/2009 Refill [facility] Family Medicine [address] [address] Tamara Neal MD [address] [place] [phone] Medications Refill Social History Tobacco Use Types [...] Patient would like refill of Percocet and [facility] Lite Test Strips for TID testing. Last [...] 11/18/2009 documented in this encounter Care Teams Housekeeping Room Inspector Relationship Specialty Start Date End Date Tamara Neal MD [address] [place] [phone] PCP - General 09/13/08 03/18/13 documented as of this encounter
--- OUTSIDE RECORDS SUMMARY | 2024-02-17 18:48 | XMS_ITS | Encounter Summary ---
Author Organization [facility] Address [address] [place] [address] Care Team Providers Care Mathematician Name Role Phone Tamara Neal MD Primary Care Provider + Reason for Visit * Reason Onset Date Comments Medication Problem 10/26/2009 Question abou t a medication Encounter Details Date Type Department Care Team (Late st Contact Info) Description 10/26/2009 Refill [facility] Family Medicine [address] [address] Tamara Neal MD [address] [place] [phone] Medication Problem (Question about a medication) Social [...] Telephone Encounter - Shazia Tanner - 10/27/2009 0947 EDT I am uncomfortable giving her a [...] to her appt. In Nov. With Dr. Nael, Takes 2 tabs 4 times a day. [...] documented as of this encounter Care Teams Mathematician Relationship Specialty Start Date End Date Tamara Neal MD [address] [place] [phone] PCP - General 09/13/08 03/18/13 documented as of this encounter
--- OUTSIDE RECORDS SUMMARY | 2024-02-17 18:48 | XMS_ITS | Encounter Summary ---
Author Organization [facility] Address [address] [place] [address] Care Team Providers Care Tractor Mechanic Apprentice Name Role Phone Tamara Neal MD Primary Care Provider + Reason for Visit * Reason Onset Date Comments Labs Only 11/14/2009 Encounter Details Date Type Department Care Team (Late st Contact Info) Description 11/14/2009 Orders Only [facility] Family Medicine [address] [address] Tamara Neal MD [address] [place] [phone] DM w/o complication type II (Primary Dx) [...] Primary documented in this encounter Care Teams Tractor Mechanic Apprentice Relationship Specialty Start Date End Date Tamara Neal MD [address] [place] [phone] PCP - General 09/13/08 03/18/13 documented as of this encounter
--- OUTSIDE RECORDS SUMMARY | 2024-02-17 18:48 | XMS_ITS | Encounter Summary ---
Author Organization [facility] Address [address] [place] [address] Care Team Providers Care Bank Representative Name Role Phone Tamara Neal MD Primary Care Provider + Encounter Details Date Type Department Care Team (Latest Contact Info) Description 10/03/2009 7:28 EDT - 10/03/2009 23:59 EDT Hospital Encounter [facility] [address] [place] [phone] Tamara Neal MD [address] [place] [phone] Discharge Disposition: Auto Discharge Social History Tobacco [...] on filedocumented in this encounter Care Teams Bank Representative Relationship Specialty Start Date End Date Tamara Neal MD [address] [place] [phone] PCP - General 09/13/08 03/18/13 documented as of this encounter
--- OUTSIDE RECORDS SUMMARY | 2024-02-17 18:48 | XMS_ITS | Encounter Summary ---
Author Organization [facility] Address [address] [place] [address] Care Team Providers Care Vacuum Truck Driver Name Role Phone Tamara Neal [...] Info) Description 09/06/2009 16:45 EDT Office Visit [facility] Family Medicine - [address] [phone] Tamara Neal MD [address] [place] [phone] Contraceptive management (Primary Dx); Backpain; Nausea & [...] 2-3 times daily. Returned to work at [employer] rehab, painful No bladder/bowel incontinence. Reviewed recent [...] Consider PT although modalities with day care center director did not help before N/V/fatigue - UPT [...] CARE TE ST ORDERABLES Performing Organization Address [facility]/ZIP Co de Phone Number POINT OF [...] 05/01/2013 added in this encounter Care Teams Vacuum Truck Driver Relationship Specialty Start Date End Date Tamara Neal MD [address] [place] [phone] PCP - General 09/13/08 03/18/13 documented as of this encounter
--- OUTSIDE RECORDS SUMMARY | 2024-02-17 18:48 | XMS_ITS | Encounter Summary ---
Author Organization [facility] Address [address] [place] [address] Care Team Providers Care Medication Assistant Name Role Phone Tamara Neal MD Primary Care Provider + Encounter Details Date Type Department Care Team (Late st Contact Info) Description 01/25/2010 Abstract Used for ABSTRACTING Data [phone] Tamara Neal MD [address] [place] [phone] Social History Tobacco Use Types Packs/Day [...] 02/15/2010 added in this encounter Care Teams Medication Assistant Relationship Specialty Start Date End Date Tamara Neal MD [address] [place] [phone] PCP - General 09/13/08 03/18/13 documented as of this encounter
--- OUTSIDE RECORDS SUMMARY | 2024-02-17 18:48 | XMS_ITS | Encounter Summary ---
Author Organization [facility] Address [address] [place] [address] Care Team Providers Care Acetylene Operator Name Role Phone Tamara Neal MD Primary Care Provider + Reason for Visit * Reason Comments Back Pain F/U apt Encounter Details Date Type Department Care Team (Late st Contact Info) Description 01/04/2010 11:45 EDT Office Visit [facility] Family Medicine [address] [address] Tamara Neal MD [address] [place] [phone] LBP (low back pain) (Primary Dx); Type [...] her meds are being sold to her [id number] (I did NOT confront her with this [...] employment-relat ed drug testing. ? Performed by: [employer] [place], [address], ? COURT[place] Cerna [address], Surgical Instrument Repair Specialist: Rose Lincoln, Ph.D. ? [facility] 01/04/2010 11:4 9 EDT 01/04/2010 19:15 EDT Tamara Neal MD URINALYSIS ORDER YOON Performing Organization Address [facility] de Phone Number [facility] [address] [place] [address] * TESTS ADDED BY PHONE (01/04/2010 11:49 EDT) Pathologist [facility] Tests to be added [facility] Diagnosis Code SAME [facility] Who Called DR [facility] Location Code [facility] Read Back/Confirmed ? YES [facility] 01/04/2010 11:4 9 EDT 01/04/2010 19:15 EDT Tamara Neal MD CHEMISTRY & BLOO D GAS ORDERABLES Performing Organization Address [facility] de Phone Number [facility] [address] [place] [address] * OXYCODONE SCREEN, URINE (01/04/2010 11:49 EDT) Oxycodone Screen Presumptive positive, interpret with caution. Confirmation testing available upon request. Note method change as of 12/08/2009. Suitable for medical purposes only. Will not detect all drugs within class. Cutoff = 300 ng/ml [facility] 01/04/2010 11:4 9 EDT 01/04/2010 19:15 EDT Tamara Neal MD GEN LAB UNIT COL LECT ORDERABLES Performing Organization Address [facility] de Phone Number [facility] [address] [place] [address] * OPIATES SCREEN, URINE (01/04/2010 11:49 EDT) [...] UNIT COL LECT ORDERABLES Performing Organization Address [facility] de Phone Number [facility] [address] [place] [address] documented in this encounter Visit Diagnoses Diagnosis [...] documented as of this encounter Care Teams Acetylene Operator Relationship Specialty Start Date End Date Tamara Neal MD [address] [place] [phone] PCP - General 09/13/08 03/18/13 documented as of this encounter
--- OUTSIDE RECORDS SUMMARY | 2024-02-17 18:48 | XMS_ITS | Encounter Summary ---
Author Organization [facility] Address [address] [place] [address] Care Team Providers Care Director Of Employee Development Name Role Phone Tamara Neal MD Primary Care Provider + Reason for Visit * Reason Onset Date Comments Appointment Related 11/22/2009 Encounter Details Date Type Department Care Team (Late st Contact Info) Description 11/22/2009 Telephone [facility] Rehabilitation Therapy - [facility] [address] [place] [address] Rox Velasquez, PT [address] [facility] [address] [place] [phone] Appointment Related Social History Tobacco Use [...] in this encounter Care Teams Director Of Employee Development Relationship Specialty Start Date End Date Tamara Neal MD [address] [place] [phone] PCP - General 09/13/08 03/18/13 documented as of this encounter
--- OUTSIDE RECORDS SUMMARY | 2024-02-17 18:48 | XMS_ITS | Encounter Summary ---
Author Organization [facility] Address [address] [place] [address] Care Team Providers Care Mechanical Detailer Name Role Phone Tamara Neal MD Primary Care Provider + Reason for Visit * Reason Onset Date Comments Back Pain 02/02/2010 Encounter Details Date Type Department Care Team (Late st Contact Info) Description 02/02/2010 Orders Only [facility] Spine Program - [address] [address] Shayy Orosco MD [address] [place] [address] [place] [phone] Lumbago (Primary Dx) Social History [...] Primary documented in this encounter Care Teams Mechanical Detailer Relationship Specialty Start Date End Date Tamara Neal MD [address] [place] [phone] PCP - General 09/13/08 03/18/13 documented as of this encounter
--- OUTSIDE RECORDS SUMMARY | 2024-02-17 18:48 | XMS_ITS | Encounter Summary ---
Author Organization [facility] Address [address] [place] [address] Care Team Providers Care Frame Maker Name Role Phone Tamara Neal MD Primary Care Provider + Reason for Visit * Reason Onset Date Comments Other 11/01/2009 transfer care Encounter Details Date Type Department Care Team (Late st Contact Info) Description 11/01/2009 Telephone [facility] Therapy - Medical Office Building [address] [place] [phone] Dilan Vaughn, PT [address] [place] [address] Other (transfer care) Social History [...] on filedocumented in this encounter Care Teams Frame Maker Relationship Specialty Start Date End Date Tamara Neal MD [address] [place] [phone] PCP - General 09/13/08 03/18/13 documented as of this encounter
--- OUTSIDE RECORDS SUMMARY | 2024-02-17 18:48 | XMS_ITS | Encounter Summary ---
Author Organization [facility] Address [address] [place] [address] Care Team Providers Care Riveter Automobile Brakes Name Role Phone Tamara Neal MD Primary Care Provider + Reason for Referral * Consult (Routine) - Closed Specialty Diagnoses / Procedures Referred By Contrachell t Referred To Contact Pain Medicine Diagnoses Low back pain Lumbar radiculopathy Marcin Chacko PA-C [address] [place] [phone] [facility] [address] [place] [address] Referral ID Status Reason Start Date Expiration Date V isits Requested Visits Authorized [id number] Closed Specialty Services Required 11/22/2009 1 1 Question Answer Reason for Request: TFESI left L4-5 Reason for Visit * Reason Comments Back Pain Encounter Details Date Type Department Care Team (Late st Contact Info) Description 11/22/2009 15:00 EDT Office Visit [facility] Spine Program [place] [address] Marcin Chacko PA-C [address] [place] [phone] Low back pain; Lumbar radiculopathy Social [...] Notes * Marcin Chacko PA - 11/22/2009 1646 EDT Guzman Jean is being seen as [...] unspecified documented in this encounter Care Teams Riveter Automobile Brakes Relationship Specialty Start Date End Date Tamara Neal MD [address] [place] [phone] PCP - General 09/13/08 03/18/13 documented as of this encounter
--- OUTSIDE RECORDS SUMMARY | 2024-02-17 18:48 | XMS_ITS | Encounter Summary ---
Author Organization [facility] Address [address] [place] [address] Care Team Providers Care Stamping Bench Die Maker Name Role Phone Tamara Neal MD Primary Care Provider + Reason for Visit * Reason Comments Procedure follow up from GB re moved at [facility] on 11/25, feeling a little better Enlarged Liver had biopsy and still is waiting for results Encounter Details Date Type Department Care Team (Late st Contact Info) Description 11/29/2009 16:30 EDT Office Visit [facility] Family Medicine [address] [address] Tamara Neal MD [address] [place] [phone] LBP (low back pain); Type 2 diabetes [...] documented as of this encounter Care Teams Stamping Bench Die Maker Relationship Specialty Start Date End Date Tamara Neal MD [address] [place] [phone] PCP - General 09/13/08 03/18/13 documented as of this encounter
--- OUTSIDE RECORDS SUMMARY | 2024-02-17 18:48 | XMS_ITS | Encounter Summary ---
Author Organization [facility] Address [address] [place] [address] Care Team Providers Care High School Mathematics Teacher Name Role Phone Tamara Neal MD Primary Care Provider + Encounter Details Date Type Department Care Team (Late st Contact Info) Description 10/11/2009 Orders Only [facility] Medicine - [address] [address] Tamara Neal MD [address] [place] [phone] DM w/o complication type II (Primary Dx) [...] documented as of this encounter Care Teams High School Mathematics Teacher Relationship Specialty Start Date End Date Tamara Neal MD [address] [place] [phone] PCP - General 09/13/08 03/18/13 documented as of this encounter
--- OUTSIDE RECORDS SUMMARY | 2024-02-17 18:49 | XMS_ITS | Encounter Summary ---
Author Organization [facility] Address [address] [place] [address] Care Team Providers Care Construction Helper Name Role Phone Unavailable Primary Care Provider Unavailabl e Encounter Details Date Type Department Care Team (Latest Contact Info) Description 09/12/2007 7:40 EDT - 09/14/2007 11:59 EDT Hospital Encounter [facility] [address] [place] [address] Elke Araujo MD [address] [phone] Discharge Disposition: Home or Self Care Social [...] IP SERVICE DATE: SURGEON: Julieta Araujo MD CRAWLER TRACTOR OPERATOR: Elke Rain MD PREOPERATIVE DIAGNOSIS 1. Desires [...] Rain MD A - [place] Job ID: [id number] Document ID: [id number] cc: MD Elke Hamilton MD documented in [...] Results * GLUCOSE, GLUCOMETER (09/14/2007 5:54 EDT) [facility] Signature Glucose, Fingerstick 82 70 - 100 mg/dl [facility] Clinical Allergist [place] [id number] Test Performed by Nursing Services [facility] 09/14/2007 5:54 EDT 09/14/2007 12:56 EDT Elke Araujo MD CHEMISTRY & BLOOD GA S ORDERABLES Performing Organization Address [facility] de Phone Number [facility] [address] [place] [address] * GLUCOSE, GLUCOMETER (09/13/2007 21:44 EDT) Glucose, Fingerstick 93 70 - 100 mg/dl [facility] Clinical Allergist ID [id number] Test Performed by Nursing Services [facility] 09/13/2007 21:4 4 EDT 09/14/2007 12:56 EDT Elke Araujo MD CHEMISTRY & BLOOD GA S ORDERABLES Performing Organization Address [facility] Phone Number [facility] [address] [place] [address] * (ABNORMAL) GLUCOSE, GLUCOMETER (09/13/2007 14:36 EDT) Glucose, Fingerstick 170(H) 70 - 100 mg/dl [facility] Clinical Allergist ID [id number] Test Performed by Nursing Services [facility] 09/13/2007 14:3 6 EDT 09/14/2007 12:56 EDT Elke Araujo MD CHEMISTRY & BLOOD GA S ORDERABLES Performing Organization Address [facility] Phone Number [facility] [address] [place] [address] * (ABNORMAL) GLUCOSE, GLUCOMETER (09/13/2007 10:43 EDT) Glucose, Fingerstick 170(H) 70 - 100 mg/dl [facility] Clinical Allergist ID [id number] Test Performed by Nursing Services [facility] 09/13/2007 10:4 3 EDT 09/14/2007 12:56 EDT Elke Araujo MD CHEMISTRY & BLOOD GA S ORDERABLES Performing Organization Address [facility] Co de Phone Number [facility] [address] [place] [address] * (ABNORMAL) HEMAGRAM (09/13/2007 8:40 EDT) WBC [...] ERABLES Performing Organization Address [facility] Co de Phone Number [facility] [address] [place] [address] * (ABNORMAL) GLUCOSE, GLUCOMETER (09/13/2007 6:04 EDT) Glucose, Fingerstick 150(H) 70 - 100 mg/dl [facility] Clinical Allergist ID [id number] Test Performed by Nursing Services [facility] 09/13/2007 6:04 EDT 09/13/2007 10:51 EDT Elke Araujo MD CHEMISTRY & BLOOD GA S ORDERABLES Performing Organization Address [facility] Co de Phone Number [facility] [address] [place] [address] * (ABNORMAL) GLUCOSE, GLUCOMETER (09/12/2007 21:33 EDT) Glucose, Fingerstick 119(H) 70 - 100 mg/dl [facility] Clinical Allergist ID [id number] Test Performed by Nursing Services [facility] 09/12/2007 21:3 3 EDT 09/13/2007 10:51 EDT Elke Araujo MD CHEMISTRY & BLOOD GA S ORDERABLES Performing Organization Address [facility] Co de Phone Number [facility] [address] [place] [address] * (ABNORMAL) HEMAGRAM (09/12/2007 19:00 EDT) WBC [...] ERABLES Performing Organization Address [facility]/ZIP Co de Phone Number [facility] [address] [place] [address] * (ABNORMAL) GLUCOSE, GLUCOMETER (09/12/2007 18:48 EDT) Glucose, Fingerstick 110(H) 70 - 100 mg/dl [facility] Clinical Allergist ID [id number] Test Performed by Nursing Services [facility] 09/12/2007 18:4 8 EDT 09/13/2007 10:51 EDT Elke Araujo MD CHEMISTRY & BLOOD GA S ORDERABLES Performing Organization Address [facility]/ZIP Co de Phone Number [facility] [address] [place] [address] * GLUCOSE, GLUCOMETER (09/12/2007 13:35 EDT) Glucose, Fingerstick 81 70 - 100 mg/dl [facility] Clinical Allergist ID [id number] Test Performed by Nursing Services [facility] 09/12/2007 13:3 5 EDT 09/13/2007 2:40 EDT Elke Araujo MD CHEMISTRY & BLOOD GA S ORDERABLES Performing Organization Address [facility] Co de Phone Number [facility] [address] [place] [address] * GLUCOSE, GLUCOMETER (09/12/2007 11:48 EDT) Glucose, Fingerstick 93 70 - 100 mg/dl [facility] Clinical Allergist ID [id number] Test Performed by Nursing Services [facility] 09/12/2007 11:4 8 EDT 09/13/2007 2:40 EDT Elke Araujo MD CHEMISTRY & BLOOD GA S ORDERABLES Performing Organization Address [facility] Co de Phone Number [facility] [address] [place] [address] * GLUCOSE, GLUCOMETER (09/12/2007 9:31 EDT) Glucose, Fingerstick 93 70 - 100 mg/dl [facility] Clinical Allergist ID [id number] Test Performed by Nursing Services [facility] 09/12/2007 9:31 EDT 09/13/2007 2:40 EDT Elke Araujo MD CHEMISTRY & BLOOD GA S ORDERABLES Performing Organization Address [facility] Co de Phone Number [facility] [address] [place] [address] * (ABNORMAL) HEMAGRAM (09/12/2007 8:15 EDT) WBC [...] PF4 ORD ERABLES [facility] [address] [place] [address] documented in this encounter Visit Diagnoses Not on filedocumented in this encounter
--- OUTSIDE RECORDS SUMMARY | 2024-02-17 18:49 | XMS_ITS | Encounter Summary ---
Author Organization [facility] Address [address] [place] [address] Care Team Providers Care Tube Tester Name Role Phone Unavailable Primary Care Provider Unavailabl e Encounter Details Date Type Department Care Team (Late st Contact Info) Description 06/17/2007 7:00 EST - 06/17/2007 11:59 EST Hospital Encounter [facility] [address] [place] [address] Ira Gibson MD 111 [facility], [facility] 4 [place] [phone] Discharge Disposition: Home or Self Care Social [...] URINALYSIS ORDERAB LES [facility] [address] [place] [address] * (ABNORMAL) URINALYSIS (06/17/2007 7:54 EST) Color, UA Yellow [facility] Clarity, UA Clear [facility] Glucose, UA Norm NORM [facility] Bilirubin, UA Neg NEG [facility] Ketones, UA Neg NEG [facility] Specific [place], Urine <1.005(L) 1.005 - 1.02 [facility] [...] MD URINALYSIS ORDERAB LES Performing Organization Address [facility] Co de Phone Number [facility] [address] [place] [address] * KLEIHAUER BLOOD (06/17/2007 7:30 EST) Kleihauer blood RARE CELLS SEEN ml F/M HEMORRHAGE [facility] Comment:Rev'd by Pathologist 06/17/2007 7:30 EST 06/17/2007 8:03 EST Ira Gibson MD HEMATOLOGY & PF4 O RDERABLES Performing Organization Address [facility] de Phone Number [facility] [address] [place] [address] * (ABNORMAL) FIBRINOGEN (06/17/2007 7:30 EST) Pathologist [facility] Fibrinogen 483(H) 220 - 410 mg/dl [facility] 06/17/2007 7:30 EST 06/17/2007 8:03 EST Ira Gibson MD HEMATOLOGY & PF4 O RDERABLES Performing Organization Address [facility] de Phone Number [facility] [address] [place] [address] * (ABNORMAL) HEMAGRAM AND DIFFERENTIAL (06/17/2007 7:30 [...] DNA PRO BE ORDERABLES Performing Organization Address [facility] Co de Phone Number [facility] [address] [place] [address] * TESTS ADDED BY PHONE (06/17/2007 7:30 EST) Tests to be added A1C [facility] Who Called [facility] Location Code M7 [facility] 06/17/2007 7:30 EST 06/17/2007 8:03 EST Ira Gibson MD CHEMISTRY & BLOOD GAS ORDERABLES Performing Organization Address [facility] Co de Phone Number [facility] [address] [place] [address] * HEMOGLOBIN A1C (06/17/2007 7:30 EST) Hemoglobin A1C 5.1 % [facility] Comment: Reference Range: <6% Normal range ADA guidelines: The A1c goal for non adults in general is <7%. The A1c goal for selected individual patients is as close to normal (<6%) as possible without significant hypoglycemia. 06/17/2007 7:30 EST 06/17/2007 8:03 EST Ira Gibson MD CHEMISTRY & BLOOD GAS ORDERABLES [facility] [address] [place] [address] documented in this encounter Visit Diagnoses Not on filedocumented in this encounter
--- OUTSIDE RECORDS SUMMARY | 2024-02-17 18:49 | XMS_ITS | Encounter Summary ---
Author Organization [facility] Address [address] [place] [address] Care Team Providers Care Drill Hand Name Role Phone Tamara Neal MD Primary Care Provider + Stephanie Garces MD Primary Care Provider +1- [phone] Encounter Details Date Type Department Care Team (Late st Contact Info) Description 06/18/2007 Results Only [facility] - [address] [address] Elke Araujo MD [address] [phone] Social History Tobacco Use Types [...] MD BLOOD BANK TESTS Performing Organization Address [facility] Co de Phone Number [facility] [address] [place] [address] * (ABNORMAL) HEMAGRAM (06/18/2007 8:36 EST) WBC [...] & PF4 ORD ERABLES Performing Organization Address [facility] Phone Number [facility] [address] [place] [address] * HEMOGLOBIN A1C (06/18/2007 8:36 EST) Hemoglobin [...] GA S ORDERABLES Performing Organization Address [facility] Co de Phone Number [facility] [address] [place] [address] documented in this encounter Visit Diagnoses Not on filedocumented in this encounter Care Teams Drill Hand Relationship Specialty Start Date End Date Tamara Neal MD [address] [place] [phone] PCP - General 09/13/08 03/18/13 Stephanie Garces MD [address] [place] [phone] PCP - General 08/19/08 09/12/08 documented as of this encounter
--- OUTSIDE RECORDS SUMMARY | 2024-02-17 18:49 | XMS_ITS | Encounter Summary ---
Author Organization [facility] Address [address] [place] [address] Care Team Providers Care Airport Ramp Attendant Name Role Phone Unavailable Primary Care Provider Unavailabl e Encounter Details Date Type Department Care Team (Late st Contact Info) Description 02/10/2007 14:17 EDT Hospital Encounter [facility] - Other [address] [place] [address] Luis Archer MD 111 [facility], [facility] 4 [place] [phone] Discharge Disposition: Home or Self Care Social [...]
--- OUTSIDE RECORDS SUMMARY | 2024-02-17 18:49 | XMS_ITS | Encounter Summary ---
Author Organization [facility] Address [address] [place] [address] Care Team Providers Care Rate And Cost Analyst Name Role Phone Unavailable Primary Care Provider Unavailabl e Encounter Details Date Type Department Care Team (Late st Contact Info) Description 09/08/2007 14:41 EDT Hospital Encounter [facility] [address] [place] [address] Cameron Hemphill MD [address] [place] [address] Khalida Quiñones MD Discharge Disposition: Auto Discharge [...] Procedure Name Priority Date/Time Associated Diagnosis Comments [facility] BIOPHYSICAL PROFILE 09/08/2007 16:37 EDT documented in this encounter Results * [facility] BIOPHYSICAL PROFILE (09/08/2007 16:37 EDT) Anatomical Region Laterality Modality Other 09/08/2007 16:3 7 EDT Narrative 10/10/2008 12:38 EDT BPP,GROWTH/DIABETES Please refer to the separate [facility] report. ??Contact Maternal Medicine. Procedure Note Haim Méndez MD - 10/10/2008 BPP,GROWTH/DIABETES Please refer to the separate [facility] report. Contact Maternal Medicine. Cameron Hemphill MD IMG [facility] ORDERABLE S documented in this encounter Visit Diagnoses Not on filedocumented in this encounter
--- OUTSIDE RECORDS SUMMARY | 2024-02-17 18:49 | XMS_ITS | Encounter Summary ---
Author Organization [facility] Address [address] [place] [address] Care Team Providers Care Videogame Designer Name Role Phone Tamara Neal MD Primary Care Provider + Stephanie Garces MD Primary Care Provider +1- [phone] Encounter Details Date Type Department Care Team (Late st Contact Info) Description 02/10/2007 Results Only [facility] [place] - Maple conversion [address] [place] [address] Luis Archer MD 111 [facility], [facility] 4 [place] [phone] Social History Tobacco Use Types Packs/Day Years [...] Result No Neisseria gonorrhoeae DNA detected by it analyst mediated amplification. [facility] Report Status Final [id number] [facility] Specimen Description Cervix [facility] 02/10/2007 20:3 8 EDT 02/10/2007 20:38 EDT Luis Archer MD MICROBIOLOGY - GEN ERAL ORDERABLES Performing Organization Address [facility] Co de Phone Number [facility] [address] [place] [address] * CHLAMYDIA TRACHOMATIS AMPLIFIED PROBE (02/10/2007 20:38 EDT) Specimen Description Cervix [facility] Result No Chlamydia trachomatis DNA detected by it analyst mediated amplification. [facility] Report Status Final [id number] [facility] 02/10/2007 20:3 8 EDT 02/10/2007 20:38 EDT Luis Archer MD MICROBIOLOGY - GEN ERAL ORDERABLES Performing Organization Address [facility] Co de Phone Number [facility] [address] [place] [address] * BACTERIAL CULTURE, URINE (02/10/2007 13:20 EDT) Specimen Description Urine [facility] Result Less than 10,000 CFU/ml Mixed gram positive growth [facility] Report Status Final [id number] [facility] 02/10/2007 13:2 0 EDT 02/10/2007 18:22 EDT Luis Archer MD MICROBIOLOGY - GEN ERAL ORDERABLES Performing Organization Address City/[facility] Co de Phone Number [facility] [address] [place] [address] * UA REFLEX (02/10/2007 13:20 EDT) UA Billing Microscopic not indicated. [facility] 02/10/2007 13:2 0 EDT 02/10/2007 18:22 EDT Luis Archer MD URINALYSIS ORDERAB LES Performing Organization Address [facility] Co de Phone Number [facility] [address] [place] [address] * URINALYSIS (02/10/2007 13:20 EDT) Color, UA Yellow [facility] Clarity, UA Clear [facility] Glucose, UA Norm NORM [facility] Bilirubin, UA Neg NEG [facility] Ketones, UA Neg NEG [facility] Specific [place], Urine 1.020 1.005 - 1.02 [facility] [...] MD URINALYSIS ORDERAB LES Performing Organization Address [facility] Co de Phone Number [facility] [address] [place] [address] documented in this encounter Visit Diagnoses Not on filedocumented in this encounter Care Teams Videogame Designer Relationship Specialty Start Date End Date Tamara Neal MD [address] [place] [phone] PCP - General 09/13/08 03/18/13 Stephanie Garces MD [address] [place] [phone] PCP - General 08/19/08 09/12/08 documented as of this encounter
--- OUTSIDE RECORDS SUMMARY | 2024-02-17 18:49 | XMS_ITS | Encounter Summary ---
Author Organization [facility] Address [address] [place] [address] Care Team Providers Care Alteration Tailor Name Role Phone Tamara Neal MD Primary Care Provider + Stephanie Garces MD Primary Care Provider +1- [phone] Encounter Details Date Type Department Care Team (Late st Contact Info) Description 02/24/2007 Before PRISM Converted Visit ([facility] - [facility] conversion [address] [place] [address] Betzy Canales MD [address] [place] [phone] Social History Tobacco Use Types Packs/Day Years Used Date Smoking Tobacco: Never Assessed Sex and Gender Information Value Date Recorded Sex Assigned at Not on file Gender Identity Not on file Sexual Orientation Not on file documented as of this encounter Consult Notes * Betzy Canales MD - 03/06/2009 0156 EST DIVISION OF MATERNAL MEDICINE CONSULTATION - 02/24/2007 Luis Archer MD [address] [place] [phone] Archer: Thank you for sending [...] healthy 8 pound 12 ounce female in [place]. Social history: The patient works at the [employer] and plans to work throughout the . [...] Patient was seen and counseled by the machined parts metal sprayer on an ADA diet. 2. Patient was [...] ADA diet. She was instructed by our machined parts metal sprayer today in specific dietary recommendations. We are [...] and assessments should be considered on a [id number] basis. 7. In well-controlled diabetes without any [...] Betzy Canales MD - GLT Job ID: [id number] Doc ID: [id number] cc: Luis Archer MD Job ID: [id number] Doc ID: [id number] cc: uLis Archer MD documented in this encounter Plan of Treatment Not on file documented as of this encounter Visit Diagnoses Not on filedocumented in this encounter Care Teams Alteration Tailor Relationship Specialty Start Date End Date Tamara Neal MD [address] [place] [phone] PCP - General 09/13/08 03/18/13 Stephanie Garces MD [address] [place] [phone] PCP - General 08/19/08 09/12/08 documented as of this encounter
--- OUTSIDE RECORDS SUMMARY | 2024-02-17 18:49 | XMS_ITS | Encounter Summary ---
Author Organization [facility] Address [address] [place] [address] Care Team Providers Care Coat Baster Name Role Phone Unavailable Primary Care Provider Unavailabl e Encounter Details Date Type Department Care Team (Latest Contact Info) Description 04/11/2007 14:48 EST Hospital Encounter [facility] [address] [place] [address] Unknown, Provider, Discharge Disposition: Auto Discharge Social [...] Procedure Name Priority Date/Time Associated Diagnosis Comments LONG-TERM DETAILED 04/28/2007 16:59 EST documented in this encounter Results * LONG-TERM DETAILED (04/28/2007 16:59 EST) Anatomical Region Laterality Modality Other 04/28/2007 16:5 9 EST Narrative 10/18/2008 4:23 EDT DETAILED,21736/DIABETES Please refer to the separate [facility] report. ??Contact Maternal Medicine. Procedure Note Ira Gibson MD - 10/18/2008 DETAILED,46575/DIABETES Please refer to the separate [facility] report. Contact Maternal Medicine. Ira Gibson MD IMG [facility] LONG-TERM ORDERAB LES documented in this encounter Visit Diagnoses Not on filedocumented in this encounter
--- OUTSIDE RECORDS SUMMARY | 2024-02-17 18:49 | XMS_ITS | Encounter Summary ---
Author Organization [facility] Address [address] [place] [address] Care Team Providers Care Explosive Man Name Role Phone Unavailable Primary Care Provider Unavailabl e Encounter Details Date Type Department Care Team (Late st Contact Info) Description 01/21/2008 13:09 EDT Hospital Encounter [facility] [place] - Maple conversion [address] [place] [address] Tyron Sheth MD [address] [place] [address] [place] [phone] Unknown, Provider, Social History Tobacco Use Types [...]
--- OUTSIDE RECORDS SUMMARY | 2024-02-17 18:49 | XMS_ITS | Encounter Summary ---
Author Organization [facility] Address [address] [place] [address] Care Team Providers Care Middle School Professional Name Role Phone Unavailable Primary Care Provider Unavailabl e Encounter Details Date Type Department Care Team (Late st Contact Info) Description 08/18/2007 14:55 EDT Hospital Encounter [facility] [address] [place] [address] Cameron Hemphill MD [address] [place] [address] Khalida Quiñones MD Discharge Disposition: Auto Discharge [...] Procedure Name Priority Date/Time Associated Diagnosis Comments [facility] BIOPHYSICAL PROFILE 08/18/2007 15:15 EDT documented in this encounter Results * [facility] BIOPHYSICAL PROFILE (08/18/2007 15:15 EDT) Anatomical Region Laterality Modality Other 08/18/2007 15:1 5 EDT Narrative 10/10/2008 13:51 EDT BPP,GROWTH/DIABETES Please refer to the separate [facility] report. ??Contact Maternal Medicine. Procedure Note Carroll Doan MD - 10/10/2008 BPP,GROWTH/DIABETES Please refer to the separate [facility] report. Contact Maternal Medicine. Cameron Hemphill MD [facility] ORDERABLE S documented in this encounter Visit Diagnoses Not on filedocumented in this encounter
--- OUTSIDE RECORDS SUMMARY | 2024-02-17 18:49 | XMS_ITS | Encounter Summary ---
Author Organization [facility] Address [address] [place] [address] Care Team Providers Care Quill Cleaner Name Role Phone Unavailable Primary Care Provider Unavailabl e Encounter Details Date Type Department Care Team (Late st Contact Info) Description 07/28/2007 8:58 EDT Hospital Encounter [facility] [address] [place] [address] Marlon Guillen MD [address] [place] [phone] Cameron Hemphill MD [address] [place], [place] [address] Social History Tobacco Use Types Packs/Day Years [...] 7.0 Result Component Type 2 diabetes mellitus ([facility]) 8.7(07/07/2015 5:05 EST) No Annmarie Vigil documented as of this encounter Procedures Procedure Name Priority Date/Time Associated Diagnosis Comments [facility] BIOPHYSICAL PROFILE 07/28/2007 13:07 EDT documented in this encounter Results * [facility] BIOPHYSICAL PROFILE (07/28/2007 13:07 EDT) Anatomical Region Laterality Modality Other 07/28/2007 13:0 7 EDT Narrative 10/10/2008 13:48 EDT BPP W/NST - DIABETES Please refer to the separate [facility] report. ??Contact Maternal Medicine. Procedure Note Haim Méndez MD - 10/10/2008 BPP W/NST - DIABETES Please refer to the separate [facility] report. Contact Maternal Medicine. Cameron Hemphill MD IMG [facility] ORDERABLE S documented in this encounter Visit Diagnoses Not on filedocumented in this encounter Additional Health Concerns Infection Onset Date Last Indicated Resolved Time MRSA Comment:IP note: risk factors - DM, obesity Pos sinus 06/30/17 M [place] 07/01/17 07/01/2017 07/01/2017 documented as of this encounter
--- OUTSIDE RECORDS SUMMARY | 2024-02-17 18:49 | XMS_ITS | Encounter Summary ---
Author Organization [facility] Address [address] [place] [address] Care Team Providers Care Virtualization Engineer Name Role Phone Unavailable Primary Care Provider Unavailabl e Encounter Details Date Type Department Care Team (Late st Contact Info) Description 09/16/2007 15:54 EDT Hospital Encounter [address] [address] Charity Onofre MD [address] [place] [address], [address] [place] [phone] Discharge Disposition: Auto Discharge Social History Tobacco [...]
--- OUTSIDE RECORDS SUMMARY | 2024-02-17 18:49 | XMS_ITS | Encounter Summary ---
Author Organization [facility] Address [address] [place] [address] Care Team Providers Care Insurance Service Representative Name Role Phone Unavailable Primary Care Provider Unavailabl e Encounter Details Date Type Department Care Team (Late st Contact Info) Description 08/11/2007 15:56 EDT Hospital Encounter [facility] [address] [place] [address] Cameron Hemphill MD [address] [place] [address] Khalida Quiñones MD Discharge Disposition: Auto Discharge [...] Name Priority Date/Time Associated Diagnosis Comments [facility] BIOPHYSICAL PROFILE 08/11/2007 17:52 EDT documented in this encounter Results * [facility] BIOPHYSICAL PROFILE (08/11/2007 17:52 EDT) Anatomical Region Laterality Modality Other 08/11/2007 17:5 2 EDT Narrative 10/10/2008 13:51 EDT BPP,GROWTH/DIABETES Please refer to the separate [facility] report. ??Contact Maternal Medicine. Procedure Note Haim Méndez MD - 10/10/2008 BPP,GROWTH/DIABETES Please refer to the separate [facility] report. Contact Maternal Medicine. Cameron Hemphill MD IMG [facility] ORDERABLE S documented in this encounter Visit Diagnoses Not on filedocumented in this encounter
--- OUTSIDE RECORDS SUMMARY | 2024-02-17 18:49 | XMS_ITS | Encounter Summary ---
Author Organization [facility] Address [address] [place] [address] Care Team Providers Care Radiology Orderly Name Role Phone Unavailable Primary Care Provider Unavailabl e Encounter Details Date Type Department Care Team (Late st Contact Info) Description 09/05/2006 14:41 EDT Hospital Encounter [facility] - Other [address] [place] [address] Charlee Bentley MD [address] [place] [address] [address] [place] [phone] Discharge Disposition: Auto Discharge Social [...] cancers. [facility] Report Status Final [id number] [facility] 09/05/2006 14:0 4 EDT 09/12/2006 14:04 EDT Charlee Bentley MD MICROBIOLOGY - GENE RAL ORDERABLES Performing Organization Address City/State/[facility] Co de Phone Number [facility] [address] [place] [address] documented in this encounter Visit Diagnoses Not on filedocumented in this encounter
--- OUTSIDE RECORDS SUMMARY | 2024-02-17 18:49 | XMS_ITS | Encounter Summary ---
Author Organization [facility] Address [address] [place] [address] Care Team Providers Care Motion Picture Photographer Name Role Phone Unavailable Primary Care Provider Unavailabl e Encounter Details Date Type Department Care Team (Latest Contact Info) Description 08/08/2007 6:43 EDT - 08/08/2007 11:59 EDT Hospital Encounter [facility] - Other [address] [place] [address] Khalida Quiñones MD Discharge Disposition: Home or [...]
--- OUTSIDE RECORDS SUMMARY | 2024-02-17 18:49 | XMS_ITS | Encounter Summary ---
Author Organization [facility] Address [address] [place] [address] Care Team Providers Care Loft Rigger Name Role Phone Unavailable Primary Care Provider Unavailabl e Encounter Details Date Type Department Care Team (Latest Contact Info) Description 06/13/2007 14:44 EST Hospital Encounter [facility] [address] [place] [address] Elke Araujo MD [address] [phone] Discharge Disposition: Auto Discharge Social [...] Procedure Name Priority Date/Time Associated Diagnosis Comments [facility] FOLLOW-UP 06/13/2007 15:34 EST documented in this encounter Results * [facility] FOLLOW-UP (06/13/2007 15:34 EST) Anatomical Region Laterality Modality Other 06/13/2007 15:3 4 EST Narrative 10/18/2008 6:06 EDT TYPE II DM Please refer to the separate [facility] report. ??Contact Maternal Medicine. Procedure Note Kimberley Roberson MD - 10/18/2008 TYPE II DM Please refer to the separate [facility] report. Contact Maternal Medicine. Elke Araujo MD [facility] ORDERABLE S documented in this encounter Visit Diagnoses Not on filedocumented in this encounter
--- OUTSIDE RECORDS SUMMARY | 2024-02-17 18:49 | XMS_ITS | Encounter Summary ---
Author Organization [facility] Address [address] [place] [address] Care Team Providers Care Blocker Metal Base Name Role Phone Unavailable Primary Care Provider Unavailabl e Encounter Details Date Type Department Care Team (Late st Contact Info) Description 07/19/2007 19:58 EDT Hospital Encounter [facility] [address] [place] [address] Haim Méndez MD [address] [facility], Level 4 [place] [phone] Discharge Disposition: Home or Self Care Social [...] 70 - 100 mg/dl [facility] Lightout Examiner ID [id number] Test Performed by Nursing Services [facility] 07/19/2007 22:1 9 EDT 07/20/2007 5:27 EDT Haim Méndez MD CHEMISTRY & BLOO D GAS ORDERABLES Performing Organization Address [facility] de Phone Number [facility] [address] [place] [address] * C-REACTIVE PROTEIN (07/19/2007 21:20 EDT) Pathologist [facility] C-Reactive Protein Marked hemolysis Specimen unsuitable for analysis. Repeat Requested Credit Issued <1.0 mg/dl [facility] 07/19/2007 21:2 0 EDT 07/19/2007 21:45 EDT Haim Méndez MD CHEMISTRY & BLOO D GAS ORDERABLES Performing Organization Address [facility] de Phone Number [facility] [address] [place] [address] * (ABNORMAL) HEMAGRAM AND DIFFERENTIAL (07/19/2007 21:20 [...] DNA P ROBE ORDERABLES Performing Organization Address [facility] Co de Phone Number [facility] [address] [place] [address] * FIBRONECTIN (07/19/2007 20:45 EDT) Fibronectin Neg [facility] Appearance, swab CLOUDY AND COLORLESS [facility] 07/19/2007 20:4 5 EDT 07/19/2007 20:58 EDT Haim Méndez MD CHEMISTRY & BLOO D GAS ORDERABLES Performing Organization Address [facility] Co de Phone Number [facility] [address] [place] [address] * GROUP B STREPTOCOCCUS MOLECULAR DETECTION (07/19/2007 20:45 EDT) Specimen Description Vaginal and Rectal [facility] Result No Group B beta streptococcal DNA detected by PCR. [facility] Report Status Final [id number] [facility] 07/19/2007 20:4 5 EDT 07/19/2007 21:14 EDT Haim Méndez MD MICROBIOLOGY - G ENERAL ORDERABLES Performing Organization Address [facility] Co de Phone Number [facility] [address] [place] [address] * N. GONORRHOEAE AMPLIFIED PROBE (07/19/2007 20:45 EDT) Result No Neisseria gonorrhoeae DNA detected by rewinder mediated amplification. [facility] Report Status Final [id number] [facility] Specimen Description Cervix [facility] 07/19/2007 20:4 5 EDT 07/19/2007 21:14 EDT Haim Méndez MD MICROBIOLOGY - G ENERAL ORDERABLES Performing Organization Address [facility] de Phone Number [facility] [address] [place] [address] * CHLAMYDIA TRACHOMATIS AMPLIFIED PROBE (07/19/2007 20:45 EDT) Specimen Description Cervix [facility] Result No Chlamydia trachomatis DNA detected by rewinder mediated amplification. [facility] Report Status Final [id number] [facility] 07/19/2007 20:4 5 EDT 07/19/2007 21:14 EDT Haim Méndez MD MICROBIOLOGY - G ENERAL ORDERABLES Performing Organization Address [facility] Co de Phone Number [facility] [address] [place] [address] * BACTERIAL CULTURE, URINE (07/19/2007 19:59 EDT) Specimen Description Urine [facility] Result 10,000 to 100,000 CFU/ml GARDNERELLA VAGINALIS, presumptive identification. Less than 10,000 CFU/ml Mixed gram positive growth [facility] Report Status Final [id number] [facility] 07/19/2007 19:5 9 EDT 07/19/2007 21:04 EDT Haim Méndez MD MICROBIOLOGY - G ENERAL ORDERABLES Performing Organization Address City/State/[facility] Co de Phone Number [facility] [address] [place] [address] documented in this encounter Visit Diagnoses Not on filedocumented in this encounter
--- OUTSIDE RECORDS SUMMARY | 2024-02-17 18:49 | XMS_ITS | Encounter Summary ---
Author Organization [facility] Address [address] [place] [address] Care Team Providers Care Ent Nurse Name Role Phone Tamara Neal MD Primary Care Provider + Stephanie Garces MD Primary Care Provider +1- [phone] Encounter Details Date Type Department Care Team (Late st Contact Info) Description 02/24/2007 Results Only [facility] - Maple conversion [address] [place] [address] Luis Archer MD 111 [facility], [facility] [address] [place] [phone] Social History Tobacco Use Types Packs/Day Years [...] SER OLOGY ORDERABLES [facility] [address] [place] [address] * PROFILE (02/24/2007 12:15 EDT) ABO and [...] Hepatitis B Surface Ag Neg [facility] Syphilis Sero (RPR) NONREACT. NR Dils [facility] Rubella IgG Ab Antibody detected Assayed utilizing the [facility] Immulite 2500. Values may vary with other methods. [facility] 02/24/2007 12:1 5 EDT 02/24/2007 12:40 EDT Luis Archer MD PACKAGES & DNA PRO BE ORDERABLES Performing Organization Address [facility] Co de Phone Number [facility] [address] [place] [address] * HEMOGLOBIN A1C (02/24/2007 12:15 EDT) Hemoglobin A1C 5.5 % [facility] Comment: Reference Range: <6% Normal Range <7% Recommended goal by ADA guidelines 7-8% Suboptimal by ADA guidelines >8% Further action suggested by ADA guidelines 02/24/2007 12:1 5 EDT 02/24/2007 12:40 EDT Luis Archer MD CHEMISTRY & BLOOD GAS ORDERABLES Performing Organization Address [facility] de Phone Number [facility] [address] [place] [address] documented in this encounter Visit Diagnoses Not on filedocumented in this encounter Care Teams Ent Nurse Relationship Specialty Start Date End Date Tamara Neal MD [address] [place] [phone] PCP - General 09/13/08 03/18/13 Stephanie Garces MD [address] [place] [phone] PCP - General 08/19/08 09/12/08 documented as of this encounter
--- OUTSIDE RECORDS SUMMARY | 2024-02-17 18:49 | XMS_ITS | Encounter Summary ---
Author Organization [facility] Address [address] [place] [address] Care Team Providers Care Radar Operator Name Role Phone Unavailable Primary Care Provider Unavailabl e Encounter Details Date Type Department Care Team (Latest Contact Info) Description 09/04/2007 9:00 EDT - 09/04/2007 11:59 EDT Hospital Encounter [facility] [address] [place] [address] Khalida Quiñones MD Discharge Disposition: Home or [...] MD URINALYSIS ORDERABLE S Performing Organization Address [facility] de Phone Number [facility] [address] [place] [address] * URINALYSIS (09/04/2007 10:31 EDT) Color, UA Yellow [facility] Clarity, UA Clear [facility] Glucose, UA Norm NORM [facility] Bilirubin, UA Neg NEG [facility] Ketones, UA Neg NEG [facility] Specific [place], Urine 1.015 1.005 - 1.02 [facility] [...] MD URINALYSIS ORDERABLE S Performing Organization Address [facility] Phone Number [facility] [address] [place] [address] * CULTURE IF UA POSITIVE (09/04/2007 10:31 EDT) Culture if Indicated Culture not indicated by urinalysis results. [facility] 09/04/2007 10:3 1 EDT 09/04/2007 10:36 EDT Khalida Quiñones MD MICROBIOLOGY - GENER AL ORDERABLES Performing Organization Address [facility] de Phone Number [facility] [address] [place] [address] * GLUCOSE, GLUCOMETER (09/04/2007 9:31 EDT) Glucose, Fingerstick 91 70 - 100 mg/dl [facility] Interactive Marketing Strategist ID [id number] Test Performed by Nursing Services [facility] 09/04/2007 9:31 EDT 09/06/2007 0:07 EDT Khalida Quiñones MD CHEMISTRY & BLOOD GA S ORDERABLES Performing Organization Address City/State/[facility] Co de Phone Number [facility] [address] [place] [address] documented in this encounter Visit Diagnoses Not on filedocumented in this encounter
--- OUTSIDE RECORDS SUMMARY | 2024-02-17 18:49 | XMS_ITS | Encounter Summary ---
Author Organization [facility] Address [address] [place] [address] Care Team Providers Care Cdl Company Driver Name Role Phone Unavailable Primary Care Provider Unavailabl e Encounter Details Date Type Department Care Team (Late st Contact Info) Description 01/31/2007 18:59 EDT Hospital Encounter [facility] - Other [address] [place] [address] Charlee Bentley MD [address] [place] [phone] Discharge Disposition: Auto Discharge Social History [...]
--- OUTSIDE RECORDS SUMMARY | 2024-02-17 18:49 | XMS_ITS | Encounter Summary ---
Author Organization [facility] Address [address] [place] [address] Care Team Providers Care Chute Operator Name Role Phone Unavailable Primary Care Provider Unavailabl e Encounter Details Date Type Department Care Team (Latest Contact Info) Description 03/06/2007 13:59 EST Hospital Encounter [facility] [address] [place] [address] Carroll Doan MD Discharge Disposition: Auto Discharge [...] Procedure Name Priority Date/Time Associated Diagnosis Comments USP ULTRASCREEN (INCLUDES SEQUENTIAL SCREEN) 03/21/2007 15:15 EST documented in this encounter Results * USP ULTRASCREEN (03/21/2007 15:15 EST) Anatomical Region Laterality Modality Other 03/21/2007 15:1 5 EST Narrative 10/18/2008 3:18 EDT [id number], Ultrascreen, Pt too early on 03/05 (out of town until 03/20) Please refer to the separate [facility] report. ??Contact Maternal Medicine. Procedure Note Charity Onofre MD - 10/18/2008 [id number], Ultrascreen, Pt too early on 03/05 (out of town until 03/20) Please refer to the separate [facility] report. Contact Maternal Medicine. Haim Méndez MD IMG [facility] ORDER YOON documented in this encounter Visit Diagnoses Not on filedocumented in this encounter
--- OUTSIDE RECORDS SUMMARY | 2024-02-17 18:49 | XMS_ITS | Encounter Summary ---
Author Organization [facility] Address [address] [place] [address] Care Team Providers Care Amusement Park Worker Name Role Phone Unavailable Primary Care Provider Unavailabl e Encounter Details Date Type Department Care Team (Late st Contact Info) Description 08/04/2007 13:[address] [facility] [address] [place] [address] Cameron Hemphill MD [address] [place] [address] Khalida Quiñones MD Discharge Disposition: Auto Discharge [...] Name Priority Date/Time Associated Diagnosis Comments LONG-TERM BIOPHYSICAL PROFILE 08/04/2007 14:45 EDT documented in this encounter Results * LONG-TERM BIOPHYSICAL PROFILE (08/04/2007 14:45 EDT) Anatomical Region Laterality Modality Other 08/04/2007 14:4 5 EDT Narrative 10/10/2008 13:04 EDT BPP,GROWTH/DIABETES Please refer to the separate [facility] report. ??Contact Maternal Medicine. Procedure Note Elke Araujo MD - 10/10/2008 BPP,GROWTH/DIABETES Please refer to the separate [facility] report. Contact Maternal Medicine. Cameron Hemphill MD [facility] ORDERABLE S documented in this encounter Visit Diagnoses Not on filedocumented in this encounter
--- OUTSIDE RECORDS SUMMARY | 2024-02-17 18:49 | XMS_ITS | Encounter Summary ---
Author Organization [facility] Address [address] [place] [address] Care Team Providers Care Precision Agriculture Technician Name Role Phone Tamara Neal MD Primary Care Provider + Stephanie Garces MD Primary Care Provider +1- [phone] Encounter Details Date Type Department Care Team (Late st Contact Info) Description 03/06/2007 Before PRISM Converted Visit (Maple) [facility] - Maple conversion [address] [place] [address] Carroll Doan MD Social History Tobacco Use [...] Luis Archer MD [facility] [address] [place], [place] [id number] Dear Dr. Archer: Thank you for sending [...] of an 8-pound 12-ounce baby girl in [place]. That child is alive and doing well. [...] Carroll Doan MD - LW Job ID: [id number] Doc ID: [id number] cc: Luis Archer MD - Carroll Doan MD - lw Job ID: [id number] Doc ID: [id number] cc: Luis Archer MD documented in this encounter Plan of Treatment Not on file documented as of this encounter Visit Diagnoses Not on filedocumented in this encounter Care Teams Precision Agriculture Technician Relationship Specialty Start Date End Date Taamra Neal MD [address] [place] [phone] PCP - General 09/13/08 03/18/13 Stephanie Garces MD [address] [place] [phone] PCP - General 08/19/08 09/12/08 documented as of this encounter
--- OUTSIDE RECORDS SUMMARY | 2024-02-17 18:49 | XMS_ITS | Encounter Summary ---
Author Organization [facility] Address [address] [place] [address] Care Team Providers Care Senior It Architect Name Role Phone Unavailable Primary Care Provider Unavailabl e Encounter Details Date Type Department Care Team (Late st Contact Info) Description 08/25/2007 13:51 EDT Hospital Encounter [facility] [address] [place] [address] Cameron Hemphill MD [address] [place] [address] Social History Tobacco Use Types Packs/Day Years [...] Component Type 2 diabetes mellitus ([facility]) 8.7(07/07/2015 5:05 EST) No Annmarie Vigil documented as of this encounter Procedures Procedure Name Priority Date/Time Associated Diagnosis Comments SENIOR CARE BIOPHYSICAL PROFILE 08/25/2007 17:36 EDT documented in this encounter Results * SENIOR CARE BIOPHYSICAL PROFILE (08/25/2007 17:36 EDT) Anatomical Region Laterality Modality Other 08/25/2007 17:3 6 EDT Narrative 10/10/2008 13:51 EDT BPP,GROWTH/DIABETES Please refer to the separate [facility] report. ??Contact Maternal Medicine. Procedure Note Charity Onofre MD - 10/10/2008 BPP,GROWTH/DIABETES Please refer to the separate [facility] report. Contact Maternal Medicine. Cameron Hemphill MD IMG SENIOR CARE ORDERABLE S documented in this encounter Visit Diagnoses Not on filedocumented in this encounter Additional Health Concerns Infection Onset Date Last Indicated Resolved Time MRSA Comment:IP note: risk factors - DM, obesity Pos sinus 06/30/17 M [place] 07/01/17 07/01/2017 07/01/2017 documented as of this encounter
--- OUTSIDE RECORDS SUMMARY | 2024-02-17 18:49 | XMS_ITS | Encounter Summary ---
Author Organization [facility] Address [address] [place] [address] Care Team Providers Care Advertising Clerk Name Role Phone Tamara Neal MD Primary Care Provider + Stephanie Garces MD Primary Care Provider +1- [phone] Encounter Details Date Type Department Care Team (Late st Contact Info) Description 10/21/2007 Results Only [facility] [address] [place], [place] [phone] Cindy Onofre MD [address] [facility], Level [address] [place] [address] Social History Tobacco Use Types [...] ? HILDA CROWLEY ? Accession #: ? [id number] : ? 1975 (Age: 32) ??F ?Collect Date: ? 10/21/2007 Location: ? [facility] ? Receive Date: ? 10/22/2007 Provider: ?CINDY ONOFRE MD Copy to: ? Specimen/Source: ?ThinPrep Pap Test, Cervix/Endocervix, processed on [employer] ThinPrep Imaging System, with manual evaluation Last [...] MD PATHOLOGY ORDERABLES [facility] [address] [place] [address] documented in this encounter Visit Diagnoses Not on filedocumented in this encounter Care Teams Advertising Clerk Relationship Specialty Start Date End Date Tamara Neal MD [address] [place] [phone] PCP - General 09/13/08 03/18/13 Stephanie Garces MD [address] [place] [phone] PCP - General 08/19/08 09/12/08 documented as of this encounter
--- OUTSIDE RECORDS SUMMARY | 2024-02-17 18:49 | XMS_ITS | Encounter Summary ---
Author Organization [facility] Address [address] [place] [address] Care Team Providers Care Knitting Demonstrator Name Role Phone Unavailable Primary Care Provider Unavailabl e Encounter Details Date Type Department Care Team (Latest Contact Info) Description 06/18/2007 8:31 EST - 06/18/2007 11:59 EST Hospital Encounter [facility] [address] [place] [address] Elke Araujo MD [address] [phone] Discharge Disposition: Auto Discharge Social History Tobacco [...]
--- OUTSIDE RECORDS SUMMARY | 2024-02-17 18:49 | XMS_ITS | Encounter Summary ---
Author Organization [facility] Address [address] [place] [address] Care Team Providers Care Mining Support Worker Name Role Phone Tamara Neal MD Primary Care Provider + Stephanie Garces MD Primary Care Provider +1- [phone] Encounter Details Date Type Department Care Team (Late st Contact Info) Description 08/11/2007 Results Only [facility] - [address] [address] Khalida Quiñones MD Social History Tobacco Use [...] 10:56 EDT) Specimen Description Vaginal and Rectal [facility] Result No Group B beta streptococcal DNA detected by PCR. [facility] Report Status Final [id number] [facility] 08/11/2007 10:5 6 EDT 08/11/2007 18:34 EDT Khalida Quiñones MD MICROBIOLOGY - GENER AL ORDERABLES [facility] [address] [place] [address] documented in this encounter Visit Diagnoses Not on filedocumented in this encounter Care Teams Mining Support Worker Relationship Specialty Start Date End Date Tamara Neal MD [address] [place] [phone] PCP - General 09/13/08 03/18/13 Stephanie Garces MD [address] [place] [phone] PCP - General 08/19/08 09/12/08 documented as of this encounter
--- OUTSIDE RECORDS SUMMARY | 2024-02-17 18:49 | XMS_ITS | Encounter Summary ---
Author Organization [facility] Address [address] [place] [address] Care Team Providers Care Internet Systems Administrator Name Role Phone Tamara Neal MD Primary Care Provider + Stephanie Garces MD Primary Care Provider +1- [phone] Encounter Details Date Type Department Care Team (Late st Contact Info) Description 01/24/2007 Results Only [facility] [address] [place] [address] Charlee Bentley MD [address] [facility] [address] [place] [phone] Social History Tobacco Use Types [...] MD CHEMISTRY & BLOOD G ORDERABLES [facility] [address] [place] [address] documented in this encounter Visit Diagnoses Not on filedocumented in this encounter Care Teams Internet Systems Administrator Relationship Specialty Start Date End Date Tamara Neal MD [address] [place] [phone] PCP - General 09/13/08 03/18/13 Stephanie Garces MD [address] [place] [phone] PCP - General 08/19/08 09/12/08 documented as of this encounter
--- OUTSIDE RECORDS SUMMARY | 2024-02-17 18:49 | XMS_ITS | Encounter Summary ---
Author Organization [facility] Address [address] [place] [address] Care Team Providers Care Clinical Documentation Specialist Name Role Phone Unavailable Primary Care Provider Unavailabl e Encounter Details Date Type Department Care Team (Latest Contact Info) Description 07/11/2007 13:57 EDT Hospital Encounter [facility] [address] [place] [address] Elke Araujo MD [address] [phone] Discharge Disposition: Auto Discharge Social History Tobacco [...] Procedure Name Priority Date/Time Associated Diagnosis Comments [facility] FOLLOW-UP 07/11/2007 16:18 EDT documented in this encounter Results * [facility] (07/11/2007 16:18 EDT) Anatomical Region Laterality Modality Other 07/11/2007 16:1 8 EDT Narrative 10/10/2008 12:26 EDT FOLLOW UP,28185/DIABETES Please refer to the separate [facility] report. ??Contact Maternal Medicine. Procedure Note Kimberley Roberson MD - 10/10/2008 FOLLOW UP,32046/DIABETES Please refer to the separate [facility] report. Contact Maternal Medicine. Elke Araujo MD [facility] ORDERABLE S documented in this encounter Visit Diagnoses Not on filedocumented in this encounter
--- OUTSIDE RECORDS SUMMARY | 2024-02-17 18:49 | XMS_ITS | Encounter Summary ---
Author Organization [facility] Address [address] [place] [address] Care Team Providers Care Expressive Music Therapist Name Role Phone Unavailable Primary Care Provider Unavailabl e Encounter Details Date Type Department Care Team (Late st Contact Info) Description 03/25/2007 13:29 [facility] Hospital Encounter [address] [address] Charity Onofre MD [address] [place] [address], [address] [place] [phone] Carroll Doan MD Discharge Disposition: Auto Discharge [...]
--- OUTSIDE RECORDS SUMMARY | 2024-02-17 18:49 | XMS_ITS | Encounter Summary ---
Author Organization [facility] Address [address] [place] [address] Care Team Providers Care Melt Down Furnace Operator Name Role Phone Tamara Neal MD Primary Care Provider + Stephanie Garces MD Primary Care Provider +1- [phone] Encounter Details Date Type Department Care Team (Late st Contact Info) Description 09/05/2006 Results Only [facility] [address] [place] [address] Charlee Bentley MD [address] [facility] [address] [place] [address] Social History Tobacco Use Types [...] ? HILDA CROWLEY ? Accession #: ? [id number] : ? 1975 (Age: 31) ??F ?Collect Date: ? 09/05/2006 Location: ? [facility] ? Receive Date: ? 09/06/2006 Provider: ?CHARLEE PERES MD Copy to: ? Specimen/Source: ?ThinPrep Pap Test, Cervix/Endocervix, processed on [employer] ThinPrep Imaging System, with manual evaluation Last [...] undetermined significance (ASC-US). EDUCATIONAL NOTES/RECOMMENDATI ONS ? [facility] recommends following the 2001 Consensus Guidelines for the Management of Women with Cervical Cytological Abnormalities (ANDREW,2002;287:212 0-9). Management algorithms have been distributed by [facility] and are available online at www.ASCCP.org. ? Document reviewed and electronically signed by: ? JOSE RAUL SHERWOOD MD ? Report Date: ??09/12/2006 10:03 End of Report [facility] 09/05/2006 09/06/2006 Charlee Bentley MD PATHOLOGY ORDERABLE S [facility] [address] [place] [address] documented in this encounter Visit Diagnoses Not on filedocumented in this encounter Care Teams Melt Down Furnace Operator Relationship Specialty Start Date End Date Tamara Neal MD [address] [place] [phone] PCP - General 09/13/08 03/18/13 Stephanie Garces MD [address] [place] [phone] PCP - General 08/19/08 09/12/08 documented as of this encounter
--- OUTSIDE RECORDS SUMMARY | 2024-02-17 18:49 | XMS_ITS | Encounter Summary ---
Author Organization [facility] Address [address] [place] [address] Care Team Providers Care Tribal Judge Name Role Phone Unavailable Primary Care Provider Unavailabl e Encounter Details Date Type Department Care Team (Late st Contact Info) Description 09/01/2007 16:17 EDT Hospital Encounter [address] [address] Charity Onofre MD [address] [place] [address], Level 4 [place] [phone] Khalida Quiñones MD Discharge Disposition: Auto Discharge [...] Procedure Name Priority Date/Time Associated Diagnosis Comments INTERMEDIATE BIOPHYSICAL PROFILE 09/01/2007 18:00 EDT documented in this encounter Results * INTERMEDIATE BIOPHYSICAL PROFILE (09/01/2007 18:00 EDT) Anatomical Region Laterality Modality Other 09/01/2007 18:0 0 EDT Narrative 10/10/2008 13:06 EDT BPP/DIABETES Please refer to the separate [facility] report. ??Contact Maternal Medicine. Procedure Note Charity Onofre MD - 10/10/2008 BPP/DIABETES Please refer to the separate [facility] report. Contact Maternal Medicine. Charity Onofre MD [facility] INTERMEDIATE ORDERABLE S documented in this encounter Visit Diagnoses Not on filedocumented in this encounter
--- OUTSIDE RECORDS SUMMARY | 2024-02-17 18:49 | XMS_ITS | Encounter Summary ---
Author Organization [facility] Address [address] [place] [address] Care Team Providers Care Installer Metal Flooring Name Role Phone Unavailable Primary Care Provider Unavailabl e Encounter Details Date Type Department Care Team (Latest Contact Info) Description 08/06/2007 17:26 EDT Hospital Encounter [facility] Unit [address] [place] [address] Khalida Quiñones MD Discharge Disposition: Home or [...] GA S ORDERABLES [facility] [address] [place] [address] * (ABNORMAL) HEMAGRAM AND DIFFERENTIAL (08/06/2007 18:11 [...] & DNA PROBE ORDERABLES Performing Organization Address City/[facility]/ZIP Co de Phone Number [facility] [address] [place] [address] * UA REFLEX (08/06/2007 17:41 EDT) UA Billing Microscopic not indicated. [facility] 08/06/2007 17:4 1 EDT 08/06/2007 18:36 EDT Khalida Quiñones MD URINALYSIS ORDERABLE S Performing Organization Address [facility] Co de Phone Number [facility] [address] [place] [address] * (ABNORMAL) URINALYSIS (08/06/2007 17:41 EDT) Color, UA Yellow [facility] Clarity, UA Clear [facility] Glucose, UA Norm NORM [facility] Bilirubin, UA Neg NEG [facility] Ketones, UA Neg NEG [facility] Specific [place], Urine <1.005(L) 1.005 - 1.02 [facility] [...] MD URINALYSIS ORDERABLE S Performing Organization Address City/[facility]/ZIP Co de Phone Number [facility] [address] [place] [address] * CULTURE IF UA POSITIVE (08/06/2007 17:41 EDT) Culture if Indicated Culture not indicated by urinalysis results. [facility] 08/06/2007 17:4 1 EDT 08/06/2007 18:36 EDT Khalida Quiñones MD MICROBIOLOGY - GENER AL ORDERABLES Performing Organization Address City/State/[facility] Co de Phone Number [facility] [address] [place] [address] documented in this encounter Visit Diagnoses Not on filedocumented in this encounter
--- OUTSIDE RECORDS SUMMARY | 2024-02-17 18:49 | XMS_ITS | Encounter Summary ---
Author Organization [facility] Address [address] [place] [address] Care Team Providers Care Vrt Mechanic Name Role Phone Unavailable Primary Care Provider Unavailabl e Encounter Details Date Type Department Care Team (Late st Contact Info) Description 05/02/2007 14:26 [facility] Hospital Encounter [address] [address] Ira Gibson MD [address] [place] [address], [address] [place] [phone] Discharge Disposition: Auto Discharge Social History Tobacco [...]
--- OUTSIDE RECORDS SUMMARY | 2024-02-17 18:49 | XMS_ITS | Encounter Summary ---
Author Organization [facility] Address [address] [place] [address] Care Team Providers Care Oil Sprayer Name Role Phone Tamara Neal MD Primary Care Provider + Stephanie Garces MD Primary Care Provider +1- [phone] Encounter Details Date Type Department Care Team (Late st Contact Info) Description 03/25/2007 Results Only [facility] Obstetrics & Midwifery - [facility] [address] [place], [place] [phone] Carroll Doan MD Social History Tobacco Use [...] EST) Creatinine 0.60(L) 0.7 - 1.5 mg/dl [facility] GFR, Calculated >60 ml/min/1.7 3m2 [facility] 03/25/2007 14:0 5 EST 03/25/2007 14:07 EST Carroll Doan MD CHEMISTRY & BLOOD GA S ORDERABLES Performing Organization Address [facility] de Phone Number [facility] [address] [place] [address] * TOTAL PROTEIN, URINE 24H (03/25/2007 5:30 EST) Tot Prot,Ur Random 5 mg/dl [facility] Tot Prot,24h Calc. 73 <150 mg/24hr [facility] 03/25/2007 5:30 EST 03/25/2007 16:42 EST Carroll Doan MD URINALYSIS ORDERABLE S Performing Organization Address [facility] de Phone Number [facility] [address] [place] [address] * URINE INFORMATION (03/25/2007 5:30 EST) Period 24 hrs [facility] Specimen Volume 1450 mls [facility] 03/25/2007 5:30 EST 03/25/2007 16:42 EST Carroll Doan MD URINALYSIS ORDERABLE S Performing Organization Address [facility] de Phone Number [facility] [address] [place] [address] * CREATININE,URINE 24HR (03/25/2007 5:30 EST) Creatinine, Urn [place] 86.2 mg/dl [facility] Creatinine, 24H Ur Calc 1.2 1.0 - 2.0 g/24 hrs [facility] 03/25/2007 5:30 EST 03/25/2007 16:42 EST Carroll Doan MD URINALYSIS ORDERABLE S Performing Organization Address [facility] de Phone Number [facility] [address] [place] [address] documented in this encounter Visit Diagnoses Not on filedocumented in this encounter Care Teams Oil Sprayer Relationship Specialty Start Date End Date Tamara Neal MD [address] [place] [phone] PCP - General 09/13/08 03/18/13 Stephanie Garces MD [address] [place] [phone] PCP - General 08/19/08 09/12/08 documented as of this encounter
--- OUTSIDE RECORDS SUMMARY | 2024-02-17 18:49 | XMS_ITS | Encounter Summary ---
Author Organization [facility] Address [address] [place] [address] Care Team Providers Care Audiovisual Aids Technician Name Role Phone Unavailable Primary Care Provider Unavailabl e Encounter Details Date Type Department Care Team (Late st Contact Info) Description 05/23/2007 15:22 EST Hospital Encounter [facility] [address] [place] [address] Elke Araujo MD [address] [phone] Social History Tobacco Use Types Packs/Day Years [...] 7.0 Result Component Type 2 diabetes mellitus ([facility]) 8.7(07/07/2015 5:05 EST) No Annmarie Vigil documented as of this encounter Visit Diagnoses Not on filedocumented in this encounter Additional Health Concerns Infection Onset Date Last Indicated Resolved Time MRSA Comment:IP note: risk factors - DM, obesity Pos sinus 06/30/17 M Chito 07/01/17 07/01/2017 07/01/2017 documented as of this encounter
--- OUTSIDE RECORDS SUMMARY | 2024-02-17 18:49 | XMS_ITS | Encounter Summary ---
Author Organization [facility] Address [address] [place] [address] Care Team Providers Care Roadside Mechanic Name Role Phone Unavailable Primary Care Provider Unavailabl e Encounter Details Date Type Department Care Team (Late st Contact Info) Description 01/22/2007 12:43 EDT Hospital Encounter [facility] - Other [address] [place] [address] Charlee Bentley MD [address] [place] [phone] Discharge Disposition: Auto Discharge Social History [...]
--- OUTSIDE RECORDS SUMMARY | 2024-02-17 18:49 | XMS_ITS | Encounter Summary ---
Author Organization [facility] Address [address] [place] [address] Care Team Providers Care Urologist Physician Name Role Phone Tamara Neal MD Primary Care Provider + Stephanie Garces MD Primary Care Provider +1- [phone] Encounter Details Date Type Department Care Team (Late st Contact Info) Description 01/31/2007 Results Only [facility] - Maple conversion [address] [place] [address] Charlee Bentley MD [address] [facility] [address] [place] [address] Social History Tobacco Use Types [...] * (ABNORMAL) HCG (01/31/2007 15:00 EDT) HCG 35707(H) <4 mIU/ml [facility] Comment: Reference Range: Positive = >10 Borderline = 4-10 recommend repeat. Negative = <4 01/31/2007 15:0 0 EDT 01/31/2007 19:30 EDT Charlee Bentley MD CHEMISTRY & BLOOD G ORDERABLES [facility] [address] [place] [address] documented in this encounter Visit Diagnoses Not on filedocumented in this encounter Care Teams Urologist Physician Relationship Specialty Start Date End Date Tamara Neal MD [address] [place] [phone] PCP - General 09/13/08 03/18/13 Stephanie Garces MD [address] [place] [address] PCP - General 08/19/08 09/12/08 documented as of this encounter
--- OUTSIDE RECORDS SUMMARY | 2024-02-17 18:49 | XMS_ITS | Encounter Summary ---
Author Organization [facility] Address [address] [place] [address] Care Team Providers Care Rehabilitation Services Director Name Role Phone Unavailable Primary Care Provider Unavailabl e Encounter Details Date Type Department Care Team (Latest Contact Info) Description 01/29/2008 8:40 EDT - 01/29/2008 11:59 EDT Hospital Encounter [facility] - Maple conversion [address] [place] [address] Haim Angulo MD Unknown, Provider, Discharge Disposition: [...] GA S ORDERABLES [facility] [address] [place] [address] documented in this encounter Visit Diagnoses Not on filedocumented in this encounter
--- OUTSIDE RECORDS SUMMARY | 2024-02-17 18:49 | XMS_ITS | Encounter Summary ---
Author Organization [facility] Address [address] [place] [address] Care Team Providers Care Health Specialist Name Role Phone Unavailable Primary Care Provider Unavailabl e Encounter Details Date Type Department Care Team (Latest Contact Info) Description 06/24/2007 13:50 EST Hospital Encounter [facility] Unit [address] [place] [address] Khalida Quiñones MD Discharge Disposition: Home or [...] 70 - 100 mg/dl [facility] Coating Mixer Tender ID [id number] Test Performed by Nursing Services [facility] 06/24/2007 15:4 3 EST 06/24/2007 15:44 EST Khalida Quiñones MD CHEMISTRY & BLOOD GA S ORDERABLES Performing Organization Address [facility] de Phone Number [facility] [address] [place] [address] * URIC ACID (06/24/2007 14:45 EST) Uric Acid 3.6 2.2 - 7.7 mg/dl [facility] 06/24/2007 14:4 5 EST 06/24/2007 14:49 EST Khalida Quiñones MD CHEMISTRY & BLOOD GA S ORDERABLES Performing Organization Address [facility] de Phone Number [facility] [address] [place] [address] * (ABNORMAL) FIBRINOGEN (06/24/2007 14:45 EST) Fibrinogen 501(H) 220 - 410 mg/dl [facility] 06/24/2007 14:4 5 EST 06/24/2007 14:49 EST Khalida Quiñones MD HEMATOLOGY & PF4 ORD ERABLES Performing Organization Address [facility] Co de Phone Number [facility] [address] [place] [address] * (ABNORMAL) CREATININE (06/24/2007 14:45 EST) Creatinine 0.50(L) 0.7 - 1.5 mg/dl [facility] GFR, Calculated >60 ml/min/1.7 3m2 [facility] 06/24/2007 14:4 5 EST 06/24/2007 14:49 EST Khalida Quiñones MD CHEMISTRY & BLOOD GA S ORDERABLES [facility] [address] [place] [address] * (ABNORMAL) HEMAGRAM AND DIFFERENTIAL (06/24/2007 14:45 EST) Pathologist [facility] WBC 9.73 4.0 - 12.4 K/cmm [facility] [...] & DNA PROBE ORDERABLES Performing Organization Address City/[facility] de Phone Number [facility] [address] [place] [address] * (ABNORMAL) BUN (06/24/2007 14:45 EST) BUN 6(L) 10 - 26 mg/dl [facility] 06/24/2007 14:4 5 EST 06/24/2007 14:49 EST Khalida Quiñones MD CHEMISTRY & BLOOD GA S ORDERABLES Performing Organization Address [facility] de Phone Number [facility] [address] [place] [address] * AST (06/24/2007 14:45 EST) AST 17 15 - 46 U/L [facility] 06/24/2007 14:4 5 EST 06/24/2007 14:49 EST Khalida Quiñones MD CHEMISTRY & BLOOD GA S ORDERABLES Performing Organization Address City/[facility] de Phone Number [facility] [address] [place] [address] * ALT (06/24/2007 14:45 EST) ALT 11 9 - 52 U/L [facility] 06/24/2007 14:4 5 EST 06/24/2007 14:49 EST Khalida Quiñones MD CHEMISTRY & BLOOD GA S ORDERABLES Performing Organization Address [facility] Co de Phone Number [facility] [address] [place] [address] * UA REFLEX (06/24/2007 14:25 EST) UA Billing Microscopic not indicated. [facility] 06/24/2007 14:2 5 EST 06/24/2007 14:32 EST Khalida Quiñones MD URINALYSIS ORDERABLE S Performing Organization Address [facility] Co de Phone Number [facility] [address] [place] [address] * URINALYSIS (06/24/2007 14:25 EST) Color, UA Yellow [facility] Clarity, UA Clear [facility] Glucose, UA Norm NORM [facility] Bilirubin, UA Neg NEG [facility] Ketones, UA Neg NEG [facility] Specific [place], Urine 1.020 1.005 - 1.02 [facility] [...] MD URINALYSIS ORDERABLE S Performing Organization Address [facility] de Phone Number [facility] [address] [place] [address] * CULTURE IF UA POSITIVE (06/24/2007 14:25 EST) Culture if Indicated Culture not indicated by urinalysis results. [facility] 06/24/2007 14:2 5 EST 06/24/2007 14:32 EST Khalida Quiñones MD MICROBIOLOGY - GENER AL ORDERABLES Performing Organization Address [facility] Co de Phone Number [facility] [address] [place] [phone] documented in this encounter Visit Diagnoses Not on filedocumented in this encounter
--- OUTSIDE RECORDS SUMMARY | 2024-02-17 18:49 | XMS_ITS | Encounter Summary ---
Author Organization [facility] Address [address] [place] [address] Care Team Providers Care Polish Compounder Name Role Phone Unavailable Primary Care Provider Unavailabl e Encounter Details Date Type Department Care Team (Late st Contact Info) Description 01/27/2008 9:56 EDT Hospital Encounter [facility] - Maple conversion [address] [place] [address] Haim Angulo MD Social History Tobacco Use [...] mellitus ([facility]) 8.7(07/07/2015 5:05 EST) Annmarie Lopez documented as of this encounter Procedures Procedure Name Priority Date/Time Associated Diagnosis Comments BASIC METABOLIC PANEL (BMP) Routine 01/27/2008 10:09 EDT documented in this encounter Results * BASIC METABOLIC PANEL (01/27/2008 10:09 EDT) Sodium Marked hemolysisSpecimen unsuitable for analysis.Repeat Requested 136 - 145 mEq/L [facility] Potassium Marked hemolysisSpecimen unsuitable for analysis.Repeat [...] GA S ORDERABLES [facility] [address] [place] [address] documented in this encounter Visit Diagnoses Not on filedocumented in this encounter Additional Health Concerns Infection Onset Date Last Indicated Resolved Time MRSA Comment:IP note: risk factors - DM, obesity Pos sinus 06/30/17 M Chito 07/01/17 07/01/2017 07/01/2017 documented as of this encounter
--- OUTSIDE RECORDS SUMMARY | 2024-02-17 18:49 | XMS_ITS | Encounter Summary ---
Author Organization [facility] Address [address] [place] [address] Care Team Providers Care Dental Biller Name Role Phone Tamara Neal MD Primary Care Provider + Stephanie Garces MD Primary Care Provider +1- [phone] Encounter Details Date Type Department Care Team (Late st Contact Info) Description 01/22/2007 Results Only [facility] [address] [place] [address] Charlee Bentley MD [address] [facility] [address] [place] [address] Social History Tobacco Use Types [...] MD CHEMISTRY & BLOOD G ORDERABLES [facility] [address] [place] [address] documented in this encounter Visit Diagnoses Not on filedocumented in this encounter Care Teams Dental Biller Relationship Specialty Start Date End Date Tamara Neal MD [address] [place] [phone] PCP - General 09/13/08 03/18/13 Stephanie Garces MD [address] [place] [phone] PCP - General 08/19/08 09/12/08 documented as of this encounter
--- OUTSIDE RECORDS SUMMARY | 2024-02-17 18:49 | XMS_ITS | Encounter Summary ---
Author Organization [facility] Address [address] [place] [address] Care Team Providers Care Phone Counselor Name Role Phone Unavailable Primary Care Provider Unavailabl e Encounter Details Date Type Department Care Team (Late st Contact Info) Description 01/24/2007 9:57 EDT - 01/24/2007 11:59 EDT Hospital Encounter [facility] - Other [address] [place] [address] Charlee Bentley MD [address] [place] [phone] Discharge Disposition: Home or Self Care Social [...]
--- OUTSIDE RECORDS SUMMARY | 2024-02-17 18:49 | XMS_ITS | Encounter Summary ---
Author Organization [facility] Address [address] [place] [address] Care Team Providers Care Paleobotanist Name Role Phone Tamara Neal MD Primary Care Provider + Stephanie Garces MD Primary Care Provider +1- [phone] Encounter Details Date Type Department Care Team (Late st Contact Info) Description 07/19/2007 Results Only [facility] Obstetrics & Midwifery - [address] [address] Elke Araujo MD [address] [phone] Social History Tobacco Use Types [...] UA Trace(A) NEG [facility] Specific [place], Urine 1.015 1.005 - 1.02 [facility] Blood, UA Neg NEG [facility] pH, UA 7.0 5.0 - 9.0 [facility] Protein, UA Neg NEG [facility] Urobilinogen, UA Norm NORM mg/dL [...] URINALYSIS ORDERABLE S Performing Organization Address [facility] de Phone Number [facility] [address] [place] [address] * CULTURE IF UA POSITIVE (07/19/2007 19:59 EDT) Culture if Indicated Culture indicated by urinalysis results. [facility] 07/19/2007 19:5 9 EDT 07/19/2007 20:00 EDT Elke Araujo MD MICROBIOLOGY - GENER AL ORDERABLES Performing Organization Address [facility] Co de Phone Number [facility] [address] [place] [address] documented in this encounter Visit Diagnoses Not on filedocumented in this encounter Care Teams Paleobotanist Relationship Specialty Start Date End Date Tamara Neal MD [address] [place] [phone] PCP - General 09/13/08 03/18/13 Stephanie Garces MD [address] [place] [phone] PCP - General 08/19/08 09/12/08 documented as of this encounter
--- OUTSIDE RECORDS SUMMARY | 2024-02-17 18:49 | XMS_ITS | Encounter Summary ---
Author Organization [facility] Address [address] [place] [address] Care Team Providers Care Field Mechanic Name Role Phone Unavailable Primary Care Provider Unavailabl e Encounter Details Date Type Department Care Team (Latest Contact Info) Description 07/21/2007 14:49 EDT Hospital Encounter [address] [address] Khalida Quiñones MD Discharge Disposition: Auto Discharge [...]
--- OUTSIDE RECORDS SUMMARY | 2024-02-17 18:49 | XMS_ITS | Encounter Summary ---
Author Organization [facility] Address [address] [place] [address] Care Team Providers Care Postmaster Name Role Phone Unavailable Primary Care Provider Unavailabl e Encounter Details Date Type Department Care Team (Latest Contact Info) Description 06/27/2007 14:23 EST Hospital Encounter [facility] [address] [place] [address] Elke Araujo MD [address] [phone] Discharge Disposition: Auto Discharge Social [...]
--- OUTSIDE RECORDS SUMMARY | 2024-02-17 18:49 | XMS_ITS | Encounter Summary ---
Author Organization [facility] Address [address] [place] [address] Care Team Providers Care Residential Field Manager Name Role Phone Unavailable Primary Care Provider Unavailabl e Encounter Details Date Type Department Care Team (Late st Contact Info) Description 10/21/2007 13:06 EDT Hospital Encounter [address] [address] Charity Onofre MD [address] [place] [address], [address] [place] [phone] Discharge Disposition: Auto Discharge Social History Tobacco [...] 68. [facility] Report Status Final [id number] [facility] 10/21/2007 13:5 5 EDT 10/24/2007 8:27 EDT Charity Onofre MD MICROBIOLOGY - GENER AL ORDERABLES Performing Organization Address City/State/[facility] Co de Phone Number [facility] [address] [address] documented in this encounter Visit Diagnoses Not on filedocumented in this encounter
--- OUTSIDE RECORDS SUMMARY | 2024-02-17 18:49 | XMS_ITS | Encounter Summary ---
Author Organization [facility] Address [address] [place] [address] Care Team Providers Care Postal Superintendent Name Role Phone Tamara Neal MD Primary Care Provider + Stephanie Garces MD Primary Care Provider +1- [phone] Encounter Details Date Type Department Care Team (Late st Contact Info) Description 03/25/2007 Before PRISM Converted Visit (Maple) [facility] - Maple conversion [address] [place] [address] Charity Onofre MD [address] [facility], [address] [place] [address] Social History Tobacco Use Types [...] Luis Archer MD [facility] [address] [place] [phone] 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 [...] - Charity Onofre MD - Job ID: [id number] Doc ID: [id number] cc: Luis Archer MD - Job ID: [id number] Doc ID: [id number] cc: Luis Archer MD documented in this encounter Plan of Treatment Not on file documented as of this encounter Visit Diagnoses Not on filedocumented in this encounter Care Teams Postal Superintendent Relationship Specialty Start Date End Date Tamara Neal MD [address] [place] [phone] PCP - General 09/13/08 03/18/13 Stephanie Garces MD [address] [place] [phone] PCP - General 08/19/08 09/12/08 documented as of this encounter
--- OUTSIDE RECORDS SUMMARY | 2024-02-17 18:49 | XMS_ITS | Encounter Summary ---
Author Organization [facility] Address [address] [place] [address] Care Team Providers Care Respiratory Medicine Physician Name Role Phone Unavailable Primary Care Provider Unavailabl e Encounter Details Date Type Department Care Team (Latest Contact Info) Description 02/24/2007 12:06 EDT Hospital Encounter [facility] [address] [place] [address] Khalida Quiñones MD Discharge Disposition: Auto Discharge [...] 16:5 0 EST Narrative 10/18/2008 4:15 EDT ULTRASCREEN,[id number]/1ST TRIMESTER SCAN,15319/TYPE II DIABETES Please refer to the separate [facility] report. ??Contact Maternal Medicine. Procedure Note Haim Méndez MD - 10/18/2008 ULTRASCREEN,49364/1ST TRIMESTER SCAN,05361/TYPE II DIABETES Please refer to the separate [facility] report. Contact Maternal Medicine. Luis Archer MD [facility] ORDERAB LES documented in this encounter Visit Diagnoses Not on filedocumented in this encounter
--- OUTSIDE RECORDS SUMMARY | 2024-02-17 18:50 | XMS_ITS | Encounter Summary ---
Author Organization [facility] Address [address] [place] [address] Care Team Providers Care Sweat Band Sewer Name Role Phone Tamara Neal MD Primary Care Provider + Stephanie Garces MD Primary Care Provider [phone]- [phone] Encounter Details Date Type Department Care Team (Late st Contact Info) Description 12/04/2004 Results Only [facility] Employee [facility] - [address] [address] Health, Nurse Employee Social History Tobacco Use [...] LAB FOR SQ LOAD Performing Organization Address [facility] Co de Phone Number [facility] [address] [place] [address] * RUBEOLA IGG ANTIBODY (12/04/2004 15:19 EDT) Rubeola IgG Ab Antibody detected [facility] 12/04/2004 15:1 9 EDT 12/04/2004 15:21 EDT Nurse Employee Health IMMUNOLOGY AND SER OLOGY ORDERABLES Performing Organization Address [facility] Co de Phone Number [facility] [address] [place] [address] * HEPATITIS B SURFACE ANTIBODY (12/04/2004 15:19 EDT) Hepatitis B Surface Ab Neg [facility] 12/04/2004 15:1 9 EDT 12/04/2004 15:21 EDT Nurse Employee Health CHEMISTRY & BLOOD GAS ORDERABLES Performing Organization Address [facility] Co de Phone Number [facility] [address] [place] [address] documented in this encounter Visit Diagnoses Not on filedocumented in this encounter Care Teams Sweat Band Sewer Relationship Specialty Start Date End Date Tamara Neal MD [address] [place] [phone] PCP - General 09/13/08 03/18/13 Stephanie Garces MD [address] [place] [phone] PCP - General 08/19/08 09/12/08 documented as of this encounter
--- OUTSIDE RECORDS SUMMARY | 2024-02-17 18:50 | XMS_ITS ---
Author Organization Unknown Address [address] [place] [phone] Phone Care Team Providers Care Sr. Pricing Analyst Name Role Phone JES DELAROSA Attending Unavailable [...] D Monday, January 18, 2021 12:44:55 PM [id number] Electronically Reviewed and Signed By: ROYA MATTHEWS [...] D Monday, January 18, 2021 12:33:03 PM [id number] Electronically Reviewed and Signed By: ROYA MATTHEWS M.D. RADIOLOGIST 01/19/21 12:27 Copy for: JES DELAROSA via link Social History Type Status Start Date End Date Code Code Syst em Smoking History Current every day smoker [id number] SNOMED CT Sex Female Medications Medication Start Date End Date Route Frequency Dose Code Code System Medication Instructions Home Meds ACTOS TABLET 10/24/2018 07/01/2021 ORAL DAILY 1 TABLET R xNorm TAKE 1 TABLET ORAL DAILY Labetalol HCl 200MG Oral Tablet 10/24/2018 07/01/2021 ORAL DAILY 200 MILLIGRAMS 02092 2 RxNorm TAKE 200 MILLIGRAMS ORAL DAILY NEURONTIN 600MG ORAL TABLET 10/24/2018 07/01/2021 ORAL TWICE A DAY 600 MILLIGRAMS RxNorm TAKE 600 MILLIGRAMS ORAL TWICE A DAY SEROQUEL 300MG ORAL TABLET 10/24/2018 07/01/2021 ORAL DAILY 300 MILLIGRAMS RxNorm TAKE 300 MILLIGRAMS ORAL DAILY metFORMIN HCl 1000MG Oral Tablet, Extended Release 10/24/2018 07/01/2021 ORAL TWICE A DAY 13074 94 RxNorm TAKE 000 MILLIGRAMS ORAL TWICE A DAY Cyclobenzapr ine 10MG Oral Tablet 12/14/2018 10/26/2021 ORAL THREE TIMES A DAY 10 MILLIGRAMS 45199 8 RxNorm TAKE 10 MILLIGRAMS ORAL THREE TIMES A DAY JANUVIA 100MG ORAL TABLET 12/14/2018 07/01/2021 ORAL DAILY 100 MILLIGRAMS RxNorm TAKE 100 MILLIGRAMS ORAL DAILY LAMICTAL 200MG ORAL TABLET 12/14/2018 07/01/2021 ORAL DAILY 200 MILLIGRAMS RxNorm TAKE 200 MILLIGRAMS ORAL DAILY Lisinopril 20MG Oral Tablet 12/14/2018 07/01/2021 ORAL DAILY 20 MILLIGRAMS 07332 7 RxNorm TAKE 20 MILLIGRAMS ORAL DAILY [...] 07/26/2021 ORAL TWICE A DAY 1000 MILLIGRAMS 90020 94 RxNorm TAKE 1000 MILLIGRAMS ORAL TWICE A DAY Ondansetron 4MG Oral Tablet, Disintegrati ng 07/05/2021 10/26/2021 ORAL NEEDED EVERY 6 HOURS 1 TABLET 76637 4 RxNorm TAKE 1 TABLET ORAL NEEDED EVERY 6 HOURS FOR Nausea/Vomi ting Phenergan 25MG Rectal Suppository 07/26/2021 10/26/2021 RECTAL DAILY 1 SUPPOSITORY 60261 7 RxNorm INSERT 1 SUPPOSITORY RECTAL DAILY HYDROcodone bitartrate-a cetaminophen 5MG-325MG Oral Tablet 09/19/2021 10/26/2021 ORAL EVERY 6 HOURS 1 TABLET 84694 2 RxNorm TAKE 1 TABLET ORAL EVERY 6 HOURS Zithromax 250MG Oral Tablet 04/17/2022 01/25/2023 ORAL DAILY 1 TABLET 13535 6 RxNorm TAKE 1 TABLET ORAL DAILY predniSONE 20MG Oral Tablet 04/17/2022 01/07/2023 ORAL DAILY 2 TABLET 83418 5 RxNorm TAKE 2 TABLET ORAL DAILY Percocet 5MG-325MG Oral Tablet 01/07/2023 06/23/2023 ORAL NEEDED EVERY 4 HOURS 1 TABLET 81963 40 RxNorm TAKE 1 TABLET ORAL NEEDED EVERY 4 HOURS predniSONE 20MG Oral Tablet 01/07/2023 01/07/2023 ORAL DAILY 2 TABLET 41674 5 RxNorm TAKE 2 TABLET ORAL DAILY predniSONE 20MG Oral Tablet 01/07/2023 06/23/2023 ORAL DAILY 2 TABLET 89104 5 RxNorm TAKE 2 TABLET ORAL DAILY LaMICtal 150MG Oral Tablet 06/23/2023 11/11/2023 ORAL DAILY 1 TABLET 95534 1 RxNorm TAKE 1 TABLET ORAL DAILY HumaLOG 100U/1ML Injection Solution 06/23/2023 Unknown INJECTION DAILY 1 unit(s) 07203 8 RxNorm 1 EACH INJECTION DAILY Ondansetron 4MG Oral Tablet 06/23/2023 01/31/2024 ORAL NEEDED EVERY 6 HOURS 4 MILLIGRAMS 2 RxNorm TAKE 4 MILLIGRAMS ORAL NEEDED EVERY 6 HOURS SEROquel 100MG Oral Tablet 06/23/2023 11/11/2023 ORAL BEDTIME 150 MILLIGRAMS 33204 9 RxNorm TAKE 150 MILLIGRAMS ORAL BEDTIME Spironolacto ne 100MG Oral Tablet 06/23/2023 Unknown ORAL DAILY 100 MILLIGRAMS 2 RxNorm TAKE 100 MILLIGRAMS ORAL DAILY Vraylar 6MG Oral Capsule 06/23/2023 11/11/2023 ORAL DAILY 6 MILLIGRAMS 24548 78 RxNorm TAKE 6 MILLIGRAMS ORAL DAILY [...] Status Code Code System SLURRED SPEECH active 821168801 SNOME D-CT DIABETES 2 active 65323031 SNOMED-CT BIPOLAR DISORDER active 36805788 SNO MED-CT PTSD 09/19/2021 resolved 47447887 SNOMED-CT FIBROMYALGIA 09/19/2021 resolved 326181412 SNOMED -CT DIABETES 2 07/05/2021 resolved 78620440 SNOMED-C T FALL FROM STAIRS 06/23/2023 resolved 706202577 SN OMED-CT CLOSED FRACTURE OF RIGHT HUMERUS 06/23/2023 resolved [id number] SNOMED-CT HTN 09/19/2021 resolved 08674175 SNOMED-CT BIPOLAR DISORDER 09/19/2021 resolved 04860369 SN OMED-CT Allergies and Adverse Reactions Allergy Substance Reaction Severity Start Date Concern Status Co de Code System LISINOPRIL Active 81853 RxNorm AMBIEN Altered Mental Status (SNOMED-CT: 614511754) Active 700703 RxNorm Plan of Treatment Lab Draw 07/30/2020 Lab Draw 05/28/2020 US ABDOMEN LIMITED 1 ORGAN 05/06/2023 US RIGHT UPPER QUAD 07/05/2021 Encounters Encounter Diagnosis Start Date Code Code Sys tem Intervertebral disc disorder s with radiculopathy, lumbar region 01/18/2021 SNOMED-CT Personal Care Team Section Performer Name Performer Role Active Date Inactive Da donita
--- OUTSIDE RECORDS SUMMARY | 2024-02-17 18:50 | XMS_ITS ---
Author Organization Unknown Address [address] [place] [phone] Phone Care Team Providers Care Director Of Promotions Name Role Phone MARY DURANT MD Attending [...] D Thursday, October 15, 2020 2:10:03 PM [id number] Electronically Reviewed and Signed By: ALBERTO CHAN M.D. RADIOLOGIST 10/17/20 17:05 Copy for: MARY DURANT MD via modem DISCHARGED Social History Type Status Start Date End Date Code Code Syst em Smoking History Current every day smoker [id number] SNOMED CT Sex Female Medications Medication Start Date End Date Route Frequency Dose Code Code System Medication Instructions Home Meds ACTOS TABLET 10/24/2018 07/01/2021 ORAL DAILY 1 TABLET R xNorm TAKE 1 TABLET ORAL DAILY Labetalol HCl 200MG Oral Tablet 10/24/2018 07/01/2021 ORAL DAILY 200 MILLIGRAMS 59845 2 RxNorm TAKE 200 MILLIGRAMS ORAL DAILY NEURONTIN 600MG ORAL TABLET 10/24/2018 07/01/2021 ORAL TWICE A DAY 600 MILLIGRAMS RxNorm TAKE 600 MILLIGRAMS ORAL TWICE A DAY SEROQUEL 300MG ORAL TABLET 10/24/2018 07/01/2021 ORAL DAILY 300 MILLIGRAMS RxNorm TAKE 300 MILLIGRAMS ORAL DAILY metFORMIN HCl 1000MG Oral Tablet, Extended Release 10/24/2018 07/01/2021 ORAL TWICE A DAY 92743 94 RxNorm TAKE 000 MILLIGRAMS ORAL TWICE A DAY Cyclobenzapr ine 10MG Oral Tablet 12/14/2018 10/26/2021 ORAL THREE TIMES A DAY 10 MILLIGRAMS 13511 8 RxNorm TAKE 10 MILLIGRAMS ORAL THREE TIMES A DAY JANUVIA 100MG ORAL TABLET 12/14/2018 07/01/2021 ORAL DAILY 100 MILLIGRAMS RxNorm TAKE 100 MILLIGRAMS ORAL DAILY LAMICTAL 200MG ORAL TABLET 12/14/2018 07/01/2021 ORAL DAILY 200 MILLIGRAMS RxNorm TAKE 200 MILLIGRAMS ORAL DAILY Lisinopril 20MG Oral Tablet 12/14/2018 07/01/2021 ORAL DAILY 20 MILLIGRAMS 12316 7 RxNorm TAKE 20 MILLIGRAMS ORAL DAILY [...] 07/26/2021 ORAL TWICE A DAY 1000 MILLIGRAMS 63909 94 RxNorm TAKE 1000 MILLIGRAMS ORAL TWICE A DAY Ondansetron 4MG Oral Tablet, Disintegrati ng 07/05/2021 10/26/2021 ORAL NEEDED EVERY 6 HOURS 1 TABLET 62141 4 RxNorm TAKE 1 TABLET ORAL NEEDED EVERY 6 HOURS FOR Nausea/Vomi ting Phenergan 25MG Rectal Suppository 07/26/2021 10/26/2021 RECTAL DAILY 1 SUPPOSITORY 82315 7 RxNorm INSERT 1 SUPPOSITORY RECTAL DAILY HYDROcodone bitartrate-a cetaminophen 5MG-325MG Oral Tablet 09/19/2021 10/26/2021 ORAL EVERY 6 HOURS 1 TABLET 27901 2 RxNorm TAKE 1 TABLET ORAL EVERY 6 HOURS Zithromax 250MG Oral Tablet 04/17/2022 01/25/2023 ORAL DAILY 1 TABLET 50376 6 RxNorm TAKE 1 TABLET ORAL DAILY predniSONE 20MG Oral Tablet 04/17/2022 01/07/2023 ORAL DAILY 2 TABLET 73649 5 RxNorm TAKE 2 TABLET ORAL DAILY Percocet 5MG-325MG Oral Tablet 01/07/2023 06/23/2023 ORAL NEEDED EVERY 4 HOURS 1 TABLET 41703 40 RxNorm TAKE 1 TABLET ORAL NEEDED EVERY 4 HOURS predniSONE 20MG Oral Tablet 01/07/2023 01/07/2023 ORAL DAILY 2 TABLET 82969 5 RxNorm TAKE 2 TABLET ORAL DAILY predniSONE 20MG Oral Tablet 01/07/2023 06/23/2023 ORAL DAILY 2 TABLET 74825 5 RxNorm TAKE 2 TABLET ORAL DAILY LaMICtal 150MG Oral Tablet 06/23/2023 11/11/2023 ORAL DAILY 1 TABLET 78912 1 RxNorm TAKE 1 TABLET ORAL DAILY HumaLOG 100U/1ML Injection Solution 06/23/2023 Unknown INJECTION DAILY 1 unit(s) 66518 8 RxNorm 1 EACH INJECTION DAILY Ondansetron 4MG Oral Tablet 06/23/2023 01/31/2024 ORAL NEEDED EVERY 6 HOURS 4 MILLIGRAMS 41523 2 RxNorm TAKE 4 MILLIGRAMS ORAL NEEDED EVERY 6 HOURS SEROquel 100MG Oral Tablet 06/23/2023 11/11/2023 ORAL BEDTIME 150 MILLIGRAMS 20100 9 RxNorm TAKE 150 MILLIGRAMS ORAL BEDTIME Spironolacto ne 100MG Oral Tablet 06/23/2023 Unknown ORAL DAILY 100 MILLIGRAMS 2 RxNorm TAKE 100 MILLIGRAMS ORAL DAILY Vraylar 6MG Oral Capsule 06/23/2023 11/11/2023 ORAL DAILY 6 MILLIGRAMS 49383 78 RxNorm TAKE 6 MILLIGRAMS ORAL DAILY [...] Status Code Code System SLURRED SPEECH active 250988896 SNOME D-CT DIABETES 2 active 55287749 SNOMED-CT BIPOLAR DISORDER active 75837950 SNO MED-CT PTSD 09/19/2021 resolved 13138018 SNOMED-CT FIBROMYALGIA 09/19/2021 resolved 069769675 SNOMED -CT DIABETES 2 07/05/2021 resolved 09993714 SNOMED-C T FALL FROM STAIRS 06/23/2023 resolved 658830335 SN OMED-CT CLOSED FRACTURE OF RIGHT HUMERUS 06/23/2023 resolved 91896619863803739 SNOMED-CT HTN 09/19/2021 resolved 85491377 SNOMED-CT BIPOLAR DISORDER 09/19/2021 resolved 95791121 SN OMED-CT Allergies and Adverse Reactions Allergy Substance Reaction Severity Start Date Concern Status Co de Code System LISINOPRIL Active 42014 RxNorm AMBIEN Altered Mental Status (SNOMED-CT: 088360882) Active 872912 RxNorm Plan of Treatment Lab Draw 07/30/2020 Lab Draw 05/28/2020 US ABDOMEN LIMITED 1 ORGAN 05/06/2023 US RIGHT UPPER QUAD 07/05/2021 Encounters Encounter Diagnosis Start Date Code Code Sys tem Sprain of unspecified ligame nt of left ankle, initial encounter 10/15/2020 SNOMED-CT Personal Care Team Section Performer Name Performer Role Active Date Inactive Da te
--- OUTSIDE RECORDS SUMMARY | 2024-02-17 18:50 | XMS_ITS ---
Author Organization Unknown Address [address] [place] [phone] Phone Care Team Providers Care Knot Cutter Name Role Phone HENOK SALAZAR Attending Unavailable JES DELAROSA Primary Unavailable Social History Type Status Start Date End Date Code Code Syst em Smoking History Current every day smoker [id number] SNOMED CT Sex Female Medications Medication Start Date End Date Route Frequency Dose Code Code System Medication Instructions Home Meds ACTOS TABLET 10/24/2018 07/01/2021 ORAL DAILY 1 TABLET R xNorm TAKE 1 TABLET ORAL DAILY Labetalol HCl 200MG Oral Tablet 10/24/2018 07/01/2021 ORAL DAILY 200 MILLIGRAMS 61079 2 RxNorm TAKE 200 MILLIGRAMS ORAL DAILY NEURONTIN 600MG ORAL TABLET 10/24/2018 07/01/2021 ORAL TWICE A DAY 600 MILLIGRAMS RxNorm TAKE 600 MILLIGRAMS ORAL TWICE A DAY SEROQUEL 300MG ORAL TABLET 10/24/2018 07/01/2021 ORAL DAILY 300 MILLIGRAMS RxNorm TAKE 300 MILLIGRAMS ORAL DAILY metFORMIN HCl 1000MG Oral Tablet, Extended Release 10/24/2018 07/01/2021 ORAL TWICE A DAY 84294 94 RxNorm TAKE 000 MILLIGRAMS ORAL TWICE A DAY Cyclobenzapr ine 10MG Oral Tablet 12/14/2018 10/26/2021 ORAL THREE TIMES A DAY 10 MILLIGRAMS 98272 8 RxNorm TAKE 10 MILLIGRAMS ORAL THREE TIMES A DAY JANUVIA 100MG ORAL TABLET 12/14/2018 07/01/2021 ORAL DAILY 100 MILLIGRAMS RxNorm TAKE 100 MILLIGRAMS ORAL DAILY LAMICTAL 200MG ORAL TABLET 12/14/2018 07/01/2021 ORAL DAILY 200 MILLIGRAMS RxNorm TAKE 200 MILLIGRAMS ORAL DAILY Lisinopril 20MG Oral Tablet 12/14/2018 07/01/2021 ORAL DAILY 20 MILLIGRAMS 41844 7 RxNorm TAKE 20 MILLIGRAMS ORAL DAILY [...] 07/26/2021 ORAL TWICE A DAY 1000 MILLIGRAMS 51000 94 RxNorm TAKE 1000 MILLIGRAMS ORAL TWICE A DAY Ondansetron 4MG Oral Tablet, Disintegrati ng 07/05/2021 10/26/2021 ORAL NEEDED EVERY 6 HOURS 1 TABLET 79793 4 RxNorm TAKE 1 TABLET ORAL NEEDED EVERY 6 HOURS FOR Nausea/Vomi ting Phenergan 25MG Rectal Suppository 07/26/2021 10/26/2021 RECTAL DAILY 1 SUPPOSITORY 37610 7 RxNorm INSERT 1 SUPPOSITORY RECTAL DAILY HYDROcodone bitartrate-a cetaminophen 5MG-325MG Oral Tablet 09/19/2021 10/26/2021 ORAL EVERY 6 HOURS 1 TABLET 00054 2 RxNorm TAKE 1 TABLET ORAL EVERY 6 HOURS Zithromax 250MG Oral Tablet 04/17/2022 01/25/2023 ORAL DAILY 1 TABLET 14922 6 RxNorm TAKE 1 TABLET ORAL DAILY predniSONE 20MG Oral Tablet 04/17/2022 01/07/2023 ORAL DAILY 2 TABLET 52496 5 RxNorm TAKE 2 TABLET ORAL DAILY Percocet 5MG-325MG Oral Tablet 01/07/2023 06/23/2023 ORAL NEEDED EVERY 4 HOURS 1 TABLET 85326 40 RxNorm TAKE 1 TABLET ORAL NEEDED EVERY 4 HOURS predniSONE 20MG Oral Tablet 01/07/2023 01/07/2023 ORAL DAILY 2 TABLET 71833 5 RxNorm TAKE 2 TABLET ORAL DAILY predniSONE 20MG Oral Tablet 01/07/2023 06/23/2023 ORAL DAILY 2 TABLET 69235 5 RxNorm TAKE 2 TABLET ORAL DAILY LaMICtal 150MG Oral Tablet 06/23/2023 11/11/2023 ORAL DAILY 1 TABLET 1 RxNorm TAKE 1 TABLET ORAL DAILY HumaLOG 100U/1ML Injection Solution 06/23/2023 Unknown INJECTION DAILY 1 unit(s) 77366 8 RxNorm 1 EACH INJECTION DAILY Ondansetron 4MG Oral Tablet 06/23/2023 01/31/2024 ORAL NEEDED EVERY 6 HOURS 4 MILLIGRAMS 2 RxNorm TAKE 4 MILLIGRAMS ORAL NEEDED EVERY 6 HOURS SEROquel 100MG Oral Tablet 06/23/2023 11/11/2023 ORAL BEDTIME 150 MILLIGRAMS 45893 9 RxNorm TAKE 150 MILLIGRAMS ORAL BEDTIME Spironolacto ne 100MG Oral Tablet 06/23/2023 Unknown ORAL DAILY 100 MILLIGRAMS 2 RxNorm TAKE 100 MILLIGRAMS ORAL DAILY Vraylar 6MG Oral Capsule 06/23/2023 11/11/2023 ORAL DAILY 6 MILLIGRAMS 27532 78 RxNorm TAKE 6 MILLIGRAMS ORAL DAILY [...] Status Code Code System SLURRED SPEECH active 711982337 SNOME D-CT DIABETES 2 active 82895956 SNOMED-CT BIPOLAR DISORDER active 84440150 SNO MED-CT PTSD 09/19/2021 resolved 49117347 SNOMED-CT FIBROMYALGIA 09/19/2021 resolved 620070342 SNOMED -CT DIABETES 2 07/05/2021 resolved 32240794 SNOMED-C T FALL FROM STAIRS 06/23/2023 resolved 732397379 SN OMED-CT CLOSED FRACTURE OF RIGHT HUMERUS 06/23/2023 resolved 07988078957190981 SNOMED-CT HTN 09/19/2021 resolved 53583281 SNOMED-CT BIPOLAR DISORDER 09/19/2021 resolved 30480252 SN OMED-CT Allergies and Adverse Reactions Allergy Substance Reaction Severity Start Date Concern Status Co de Code System LISINOPRIL Active 85241 RxNorm AMBIEN Altered Mental Status (SNOMED-CT: 846502614) Active 762356 RxNorm Plan of Treatment Lab Draw 07/30/2020 Lab Draw 05/28/2020 US ABDOMEN LIMITED 1 ORGAN 05/06/2023 US RIGHT UPPER QUAD 07/05/2021 Encounters Encounter Diagnosis Start Date Code Code Sys tem Radiculopathy, lumbar region 12/28/2020 SNOMED-CT Personal Care Team Section Performer Name Performer Role Active Date Inactive Da te
[2024-02-17 19:55] LABS: Microalb ug/mg Crea 3.5 ug/mg Cr
== END 2024-02-17 18:26 | disposition home or self-care (01) ==
LOC: NCHCN 18:25
PROVIDERS: PCP Nurse Practitioner Family; Visit Provider Family Medicine
DX: E11.9 Type 2 diabetes mellitus without complications (principal)
CPT/HCPCS: 82043; 82570

== ENCOUNTER 2024-04-27 19:03 | Outpatient (REF) | payer MEDICARE, SELFPAY ==
[2024-04-30 14:56] LABS: Bacterial Vaginosis (BV) Positive (Negative); Candida glabrata Negative (Negative); Candida species group Negative (Negative); Chlamydia Result Negative (Negative); GC Result Negative (Negative); Trichomonas vaginalis Negative (Negative)
== END 2024-04-27 19:04 | disposition home or self-care (01) ==
LOC: NCHCN 19:03
PROVIDERS: PCP Nurse Practitioner Family; Visit Provider Family Medicine
DX: R30.0 Dysuria (principal)
CPT/HCPCS: 81513; 87481; 87491; 87591; 87661

== ENCOUNTER 2024-08-03 14:05 | Outpatient (REF) | payer MEDICARE, SELFPAY ==
[2024-08-03 14:31] LABS: Abs Immature Grans 0.03 10^3/uL (0.0-0.06); Absolute Basophil Count 0.04 10^3/uL (0.0-0.2); Absolute Eosinophil Count 0.13 10^3/uL (0.0-0.7); Absolute Lymphocyte Count 3.78 10^3/uL (1.2-3.4); Basophils % 0.5 %; Eosinophils % 1.5 %; HGB 14.5 g/dL (11.2-15.7); Immature Grans % 0.3 %; Lymphocytes % 42.6 %; MCH 31.9 pg (27.0-33.0); MCHC 33.7 % (32.0-36.0); MCV 95 fL (80-95); MPV 10.5 fL (8.0-11.0); Monocytes % 6.8 %; Neutrophils % 48.3 %; Platelet Count 237 10^3/uL (130-400); RBC 4.54 10^6/uL (3.93-5.22); RDW 11.6 % (11.7-14.6); WBC 8.88 10^3/uL (4.4-10.8)
[2024-08-03 15:06] LABS: ALT 64 U/L (14-59); AST 35 U/L (15-37); Albumin 3.9 g/dL (3.4-5.0); Alkaline Phosphatase 113 U/L (46-116); Anion Gap 11.7 mmol/L (3-11); BUN 5 mg/dL (7-18); Bilirubin, Total 0.7 mg/dL (0.2-1.0); CO2 25.3 mmol/L (21.0-32.0); CREATININE 0.9 mg/dL (0.55-1.02); Calcium 9.6 mg/dL (8.5-10.1); Chloride 102 mmol/L (98-107); Estimated GFR 79.35 (mL/min/1.73m2); Glucose 392 mg/dL (74-106); Potassium 3.7 mmol/L (3.5-5.1); Sodium 139 mmol/L (136-145); TSH (W/Ref FT4) 0.77 uIU/mL (0.36-3.74); Total Protein 7.4 g/dL (6.4-8.2)
== END 2024-08-03 14:06 | disposition home or self-care (01) ==
LOC: NCHCN 14:05
PROVIDERS: PCP Nurse Practitioner Family; Visit Provider Family Medicine
DX: R50.9 Fever, unspecified (principal)
CPT/HCPCS: 80053; 84443; 85025